=== PATIENT | male | born 1955 | race Caucasian/White ===

== ENCOUNTER 2022-12-24 08:49 | Outpatient (OUT) | payer BC, SELFPAY ==
--- NOTE | 2022-12-24 08:58 | XR_ITS ---
The [address] [address] Patient Name: CARLOS LOCKE MRN: [id number] date: 1955 Sex: M Assigned Patient Location: Current Patient Location: Accession/Order Number: [id number] Exam Date: 12/24/2022 08:57 Report Date: 12/24/2022 12:10 At the request of: TONIO BELL Procedure: XR foot LT min 3V EXAM: XR foot LT min 3V HISTORY: LEFT FOOT PAIN COMPARISON: 12/03/2022. 11/12/2022. TECHNIQUE: 3 views left foot. FINDINGS: Remote ORIF left great toe MTP joint. Also remote resection arthroplasty of the great toe IP joints. There is ill-defined margin and periosteal new bone formation at the distal margin of the proximal phalanx near the resection site. Raises suspicion for infection and appears somewhat progressed compared to priors. Old chronic healed deformity at the base of the third proximal phalanx again seen. Mild to moderate degenerative change of the midfoot. IMPRESSION: Slight increasing irregularity and swelling and periosteal new bone at the first proximal phalanx resection site concerning for osteomyelitis but correlate clinically. Electronically authenticated by: BRIAN MARTINEZ Date: 12/24/2022 12:10
== END 2022-12-24 08:50 ==
LOC: WC 08:49
PROVIDERS: PCP Specialist; Visit Provider Podiatrist Foot & Ankle Surgery
DX: M79.672 Pain in left foot (principal); E11.69 Type 2 diabetes mellitus with other specified complication; E11.65 Type 2 diabetes mellitus with hyperglycemia; E11.21 Type 2 diabetes mellitus with diabetic nephropathy; L84 Corns and callosities; L03.032 Cellulitis of left toe; E78.00 Pure hypercholesterolemia, unspecified; I10 Essential (primary) hypertension
CPT/HCPCS: 73630; 99212; G0463

== ENCOUNTER 2023-01-06 12:14 | Outpatient (OUT) | payer BC, SELFPAY ==
--- NOTE | 2023-01-06 12:56 | P.CN_ITS ---
Consult Note: HPI Data of Consult Patient: known to practice within the last 3 years Consult date: 01/06/23 Requesting Physician: Donaldo Sparrow MD Primary Care Provider: Bekah Berrios MD Consult Narrative Reason for consult: Low back pain Narrative: this is a pleasant 67-year-old gentleman who presents for assessment. He recently underwent paralumbar trigger point injections, which provided relief for several weeks, but his axial low back pain has now returned. He also underwent lumbar x-ray imaging, which is significant for moderate facet arthropathy throughout. He continues tto utilize tramadol. He engages in provider directed home exercises. He denies adverse medications artifactual loss of bowel or bladder control. cc:: CC: Donaldo Sparrow MD Review of Systems ROS0 Status of ROS 10 or more systems reviewed and unremarkable except as noted in history and below Exam Constitutional Common normals: no apparent distress, oriented x3 and healthy appearing Respiratory Common normals: normal respiratory effort Effort & inspection: able to speak in complete sentences Back & Pelvis Other: tenderness to palpation throughout the lumbar spine and paraspinal musculature. Pain is elicited with flexion, extension, and lateral rotation of the lumbar spine. Facet loading maneuvers are positive bilaterally. Coordination is intact. Gait remains nonantalgic. Extremity Common normals: normal to inspection Neuro Common normals: oriented x3, CN's II-XII intact bilaterally and no focal motor deficits Psych Common normals: mental status grossly normal and cooperative Assessment and Plan Assessment and Plan (1) Lumbar spondylosis: Plan this is a pleasant 67-year-old gentleman who presents for assessment. He notes persistence of axial low back pain that is worsened with standing and ambulation. He previously underwent lumbar bilateral L3, L4, L5 radiofrequency ablation in January 2022, which provided significant relief of his pain for over a six-month period of time. We discussed that given his current symptomatology and imaging findings, he would likely benefit from a repeat of his bilateral L3, L4, L5 radicular frequency ablation. He expressed understanding and will call to schedule this when he is ready. Medications were reviewed, and no changes were made at this time. He will follow-up in three months or sooner, if needed.
== END 2023-01-06 12:15 | disposition home or self-care (01) ==
LOC: PM 12:19
PROVIDERS: PCP Specialist; Visit Provider Anesthesiology
DX: M47.816 Spondylosis without myelopathy or radiculopathy, lumbar region (principal); M54.50 Low back pain, unspecified
CPT/HCPCS: G0463

== ENCOUNTER 2023-01-11 13:15 | Emergency (ER) | payer BC, SELFPAY ==
[2023-01-11 13:32] VITALS: BP 134/78; PULSE 82; RESP 16; TEMP 37.3; O2SAT 98; BMI 42.2
--- NOTE | 2023-01-11 13:35 | XR_ITS ---
The [address] [address] Patient Name: CARLOS LOCKE MRN: [id number] date: 1955 Sex: M Assigned Patient Location: ER Current Patient Location: ER Accession/Order Number: [id number] Exam Date: 01/11/2023 14:12 Report Date: 01/11/2023 14:36 At the request of: FRANCISCO CHAVIS Procedure: XR chest 2V EXAM: XR chest 2V HISTORY: cough COMPARISON: None. TECHNIQUE: PA and lateral views of the chest FINDINGS: There is no focal airspace consolidation. There are left basilar mild reticular opacities, suggestive of atelectasis or some scarring. The cardiomediastinal silhouette is not enlarged. There are mild calcific plaques at aortic arch. No evidence of pleural effusion or pneumothorax are identified. No acute osseous abnormality. IMPRESSION: No acute cardiopulmonary process. Recommend follow up imaging if symptoms worsen or persist. Electronically authenticated by: GETACHEW LINDSAY Date: 01/11/2023 14:36
--- NOTE | 2023-01-11 14:54 | ED.URI1 ---
HPI - URI/Sore Throat General Chief Complaint: Upper Respiratory Infection Stated Complaint: COUGH Time Seen by Provider: 01/11/23 14:03 Source: patient Limitations: no limitations History of Present Illness HPI Narrative: cough and congestion for over a week. Took a covid test at home and it was negative. Patient denied fever or chills. No GI or symptoms. Patient tried to get in to see his PCP and was told it would be months before they could schedule him for this. Related Data Home Medications Medication Instructions Recorded Confirmed acetaminophen 500 mg tablet 1,000 mg PO Q6H PRN pain 01/06/23 01/06/23 (Acetaminophen Extra Strength) ascorbic acid (vitamin C) 500 mg 500 mg PO BID 01/06/23 01/06/23 tablet (C-500) atorvastatin 20 mg tablet 20 mg PO DAILY 01/06/23 01/06/23 cholecalciferol (vitamin D3) 25 1,000 unit PO BID 01/06/23 01/06/23 mcg (1,000 unit) tablet (Vitamin D3) colchicine 0.6 mg tablet 0.6 mg PO TID 01/06/23 01/06/23 diclofenac sodium 50 mg 50 mg PO Q12H 01/06/23 01/06/23 tablet,delayed release febuxostat 40 mg tablet 40 mg PO DAILY 01/06/23 01/06/23 gabapentin 300 mg capsule 300 mg PO TID 01/06/23 01/06/23 lisinopril 5 mg tablet 5 mg PO DAILY 01/06/23 01/06/23 metformin 500 mg tablet,extended 500 mg PO DAILY 01/06/23 01/06/23 release 24 hr probenecid 500 mg tablet 500 mg PO BID 01/06/23 01/06/23 semaglutide 1 mg/dose (4 mg/3 mL) 0.5 mg subcut .weekly 01/06/23 01/06/23 subcutaneous pen injector (Ozempic) tizanidine 4 mg tablet 8 mg PO .hs 01/06/23 01/06/23 tramadol 50 mg tablet 50 mg PO Q8H 01/06/23 01/06/23 Previous Rx's Medication Instructions Recorded doxycycline hyclate 100 mg tablet 100 mg PO BID 7 days #14 tabs 01/11/23 Allergies Allergy/AdvReac Type Severity Reaction Status Date / Time oxycodone AdvReac Verified 01/06/23 13:07 Exam Narrative Exam Narrative: Nurses notes and vital signs reviewed and patient is not hypoxic. afebrile General: Well-appearing and in no apparent distress. Skin: Warm, dry, no pallor noted. No rash. Head: Normocephalic, atraumatic. Neck: Supple, non-tender. no lymphadenopathy Eye: Pupils are equal, round and EOMI. No scleral icterus. Ears, Nose, Mouth, and Throat: TM are bilaterally, mild nasal mucosal hypertrophy. Oral mucosa is moist, no posterior oropharynx erythema, uvula is mid-line. maxillary sinus tenderness to palpation. Cardiovascular: Regular Rate and Rhythm without murmur, gallop or rub. Respiratory: No accessory muscle use or respiratory distress. Lungs are clear to auscultation, no wheezing, rales or rhonchi Musculoskeletal: normal ROM Neurological: A&O x4. No cranial nerve dysfunction observed. No truncal ataxia. Moves all extremities. Sensation intact. Psychiatric: Cooperative and interactive. Normal mood and affect. Constitutional Vital Signs - 24 hr 01/11/23 13:32 01/11/23 13:36 Temperature 99.1 F Pulse Rate [Monitor] 82 Respiratory Rate 16 Blood Pressure [Left Arm] 134/78 H Pulse Oximetry 98 Oxygen Delivery Method Room Air Room Air Course Vital Signs Vital signs: Vital Signs Temperature 99.1 F 01/11/23 13:32 Pulse Rate 82 01/11/23 13:32 Respiratory Rate 16 01/11/23 13:32 Blood Pressure 134/78 H 01/11/23 13:32 Pulse Oximetry 98 01/11/23 13:32 Oxygen Delivery Method Room Air 01/11/23 13:32 Temperature 99.1 F 01/11/23 13:32 Pulse Rate 82 01/11/23 13:32 Respiratory Rate 16 01/11/23 13:32 Blood Pressure 134/78 H 01/11/23 13:32 Pulse Oximetry 98 01/11/23 13:32 Oxygen Delivery Method Room Air 01/11/23 13:36 MDM - URI/Sore Throat MDM Narrative Medical decision making narrative: patient has had symptoms for over a week with nasal congestion and pressure indicative of sinusitis and else of upper respiratory infection. Chest x-ray was unremarkable and lungs are clear to auscultation but I'm going to start this patient on antibiotics since he is getting worse despite iuza-ngd-uwxlqoy therapy. He is not able to see his primary care provider is there scheduling several months out. I told him to return the emergency Department if he worsens. Imaging Data Chest x-ray: Radiologist's impression: Patient Name: CARLOS LOCKE MRN: [id number] date: 1955 Sex: M Assigned Patient Location: ER Current Patient Location: ER Accession/Order Number: [id number] Exam Date: 01/11/2023 14:12 Report Date: 01/11/2023 14:36 At the request of: FRANCISCO CHAVIS Procedure: XR chest 2V EXAM: XR chest 2V HISTORY: cough COMPARISON: None. TECHNIQUE: PA and lateral views of the chest FINDINGS: There is no focal airspace consolidation. There are left basilar mild reticular opacities, suggestive of atelectasis or some scarring. The cardiomediastinal silhouette is not enlarged. There are mild calcific plaques at aortic arch. No evidence of pleural effusion or pneumothorax are identified. No acute osseous abnormality. IMPRESSION: No acute cardiopulmonary process. Recommend follow up imaging if symptoms worsen or persist. Electronically authenticated by: GETACHEW LINDSAY Date: 01/11/2023 14:36 Discharge Plan Discharge Chief Complaint: Upper Respiratory Infection Clinical Impression: Upper respiratory infection Patient Disposition: Home, Self-Care Time of Disposition Decision: 14:59 Prescriptions / Home Meds: New doxycycline hyclate 100 mg tablet 100 mg PO BID 7 Days Qty: 14 0RF No Action acetaminophen [Acetaminophen Extra Strength] 500 mg tablet 1,000 mg PO Q6H PRN (Reason: pain) febuxostat 40 mg tablet 40 mg PO DAILY gabapentin 300 mg capsule 300 mg PO TID lisinopril 5 mg tablet 5 mg PO DAILY Ozempic 1 mg/dose (4 mg/3 mL) pen injector 0.5 mg SUBCUT .weekly ascorbic acid (vitamin C) [C-500] 500 mg tablet 500 mg PO BID cholecalciferol (vitamin D3) [Vitamin D3] 25 mcg (1,000 unit) tablet 1,000 unit PO BID atorvastatin 20 mg tablet 20 mg PO DAILY colchicine 0.6 mg tablet 0.6 mg PO TID diclofenac sodium 50 mg tablet,delayed release (DR/EC) 50 mg PO Q12H metformin 500 mg tablet extended release 24 hr 500 mg PO DAILY probenecid 500 mg tablet 500 mg PO BID tizanidine 4 mg tablet 8 mg PO .hs tramadol 50 mg tablet 50 mg PO Q8H Instructions: Sinusitis (ED), Upper Respiratory Infection (ED) Stand Alone Forms: Portal Instructions Referrals: Tulio Madrid MD [Primary Care Provider] - 1 week
== END 2023-01-11 15:11 | disposition home or self-care (01) ==
PROVIDERS: Emergency Provider Emergency Medicine; PCP Family Medicine
DX: J06.9 Acute upper respiratory infection, unspecified (principal); Z79.899 Other long term (current) drug therapy
CPT/HCPCS: 71046; 99283

== ENCOUNTER 2023-02-03 20:45 | Outpatient (OUT) | payer BC, SELFPAY | END 2023-02-03 20:46 | disposition home or self-care (01) | LOC: SLEEP 20:47 | PROVIDERS: PCP Family Medicine; Visit Provider Family Medicine | DX: G47.33 Obstructive sleep apnea (adult) (pediatric) (principal) | CPT/HCPCS: 95811 ==

== ENCOUNTER 2023-03-24 08:20 | Outpatient (OUT) | payer BC, SELFPAY ==
--- NOTE | 2023-03-24 08:23 | XR_ITS ---
[place] [id number] Patient Name: CARLOS LOCKE MRN: [id number] date: 1955 Sex: M Assigned Patient Location: [facility] Current Patient Location: [facility] Accession/Order Number: [id number] Exam Date: 03/24/2023 08:30 Report Date: 03/24/2023 15:28 At the request of: ELIN BAR Procedure: XR knee MARIE 4V STUDY: XR knee MARIE 4V, [id number] HISTORY: Bilateral knee Pain COMPARISON: Bilateral knee x-rays 05/31/2021. FINDINGS: Right knee: No acute fracture, dislocation, or suspicious osseous lesion. Severe joint space narrowing of the medial compartment along with moderate joint space narrowing of the lateral patellofemoral compartment. There is moderate tricompartmental osteophytosis, similar. Small knee joint effusion. Left knee: No acute fracture, dislocation, or suspicious osseous lesion. Severe joint space narrowing of the medial compartment and mild joint space narrowing of the lateral patellofemoral compartment. There is severe osteophytosis of the medial compartment and mild/moderate osteophytosis of the lateral and patellofemoral compartments. Small knee joint effusion. IMPRESSION: 1. No acute osseous abnormality. 2. Severe osteoarthritis of both knees, moderately worse in the left medial compartment compared with 05/31/2021. Electronically authenticated by: JANETH JARRELL Date: 03/24/2023 15:28
== END 2023-03-24 08:21 | disposition home or self-care (01) ==
LOC: RAD 08:20
PROVIDERS: PCP Family Medicine; Visit Provider Orthopaedic Surgery
DX: M25.561 Pain in right knee (principal); M25.562 Pain in left knee; M17.0 Bilateral primary osteoarthritis of knee
CPT/HCPCS: 73564

== ENCOUNTER 2023-04-09 09:14 | Outpatient (OUT) | payer BC, SELFPAY ==
--- NOTE | 2023-04-09 09:53 | P.CN_ITS ---
Consult Note: HPI Data of Consult Patient: known to practice within the last 3 years Requesting Physician: Gracie Chaudhry NP Primary Care Provider: Bekah Berrios MD Consult Narrative Reason for consult: f/u Narrative: Warner Caraballo a pleasant 67 year old male presents for evaluation of chronic low back pain. Today rating pain 4/10 in low back. Pain has been improved, as well as functional ability, for >6 months from previous RFA at bilateral L 3,4,5. Trigger point injections have been beneficial in the past. cc:: CC: Gracie Chaudhry NP Review of Systems ROS Status of ROS 10 or more systems reviewed and unremarkable except as noted in history and below Musculoskeletal Reports: back pain Meds Home Medications and Allergies Home Medications Medication Instructions Recorded Confirmed Type acetaminophen 500 mg tablet 1,000 mg PO Q6H PRN pain 01/06/23 01/06/23 History (Acetaminophen Extra Strength) ascorbic acid (vitamin C) 500 mg 500 mg PO BID 01/06/23 01/06/23 History tablet (C-500) atorvastatin 20 mg tablet 20 mg PO DAILY 01/06/23 01/06/23 History cholecalciferol (vitamin D3) 25 1,000 unit PO BID 01/06/23 01/06/23 History mcg (1,000 unit) tablet (Vitamin D3) colchicine (gout) 0.6 mg tablet 0.6 mg PO TID 01/06/23 01/06/23 History diclofenac sodium 50 mg 50 mg PO Q12H 01/06/23 01/06/23 History tablet,delayed release febuxostat 40 mg tablet 40 mg PO DAILY 01/06/23 01/06/23 History gabapentin 300 mg capsule 300 mg PO TID 01/06/23 01/06/23 History lisinopril 5 mg tablet 5 mg PO DAILY 01/06/23 01/06/23 History metformin 500 mg tablet,extended 500 mg PO DAILY 01/06/23 01/06/23 History release 24 hr probenecid 500 mg tablet 500 mg PO BID 01/06/23 01/06/23 History semaglutide 1 mg/dose (4 mg/3 mL) 0.5 mg subcut .weekly 01/06/23 01/06/23 History subcutaneous pen injector (Ozempic) tizanidine 4 mg tablet 8 mg PO .hs 01/06/23 01/06/23 History tramadol 50 mg tablet 50 mg PO Q8H 01/06/23 01/06/23 History doxycycline hyclate 100 mg tablet 100 mg PO BID 7 days #14 tabs 01/11/23 Rx tramadol 50 mg tablet 50 mg PO TID PRN pain #90 tabs 02/26/23 Rx Allergies Allergy/AdvReac Type Severity Reaction Status Date / Time oxycodone AdvReac Verified 01/06/23 13:07 Exam Constitutional Documenting provider has reviewed patient's vital signs: yes Common normals: no apparent distress, oriented x3, healthy appearing, alert and well nourished General appearance: cooperative HENMT Common normals: normocephalic, hearing grossly normal bilaterally and moist oral mucous membranes Head and scalp: normocephalic Eye Common normals: PERRL Pupil: PERRL Neck & C-Spine Common normals: full ROM General: normal visual inspection Chest Common normals: inspection of chest normal Respiratory Common normals: normal respiratory effort, no retractions and no use of accessory muscles Back & Pelvis Lumbar spine/lower back: ROM limited, pain with ROM, paraspinal muscle tendernes s and straight leg raise negative bilaterally Other: bilateral positive facet loading and tenderness pain at L 3,4,5 facets no radiculopathy Neuro Common normals: oriented x3, CN's II-XII intact bilaterally, moves all extremities, no focal motor deficits, no sensory deficits noted and deep tendon reflexes 2+ bilaterally Sensorium/orientation: alert Motor exam: strength 5/5 throughout and no movement abnormalities noted Psych Common normals: mental status grossly normal, thought process normal, cooperative, affect normal, speech normal and activity/motor behavior normal Speech: normal speech Thought process: normal thought process Results Additional Findings Additional findings: I have checked an [place]AR[place] report on this patient today and there are no aberrancies noted in the prescribing history.?? A drug screen was completed and reviewed within the last year, and if there has not been a drug screen completed we ordered one today to monitor higher risk, state monitored pain medication use. As part of providing excellent, safe, comprehensive care, the following was completed at our patient's visit: 1. A medication reconciliation and review to ensure accurate knowledge of current/active medications, including asking our patients to inform us about any [id number] medications or herbal remedies/nutritional supplements/alternative remedies. 2. A review to specifically ensure our patients have had annual screening for: elevated body mass index (BMI), tobacco use, screening for depression, and screening for unhealthy alcohol use. When screening is concerning, patients are provided with education and the specific recommendation to discuss the conc erning health issue and treatment options with their primary care provider. The patient has had over 3 months of moderate to severe low back pain with functional impairment and inadequate response to conservative care including NSAIDS (unless there are contraindication such as concurrent blood thinners), multiple oral or topical pain medications, and home exercise program/physical therapy.? I have reviewed the imaging of the lumbar spine and no red flags were identified.? The imaging reveals radiographic findings consistent with lumbar spondylosis The Oswestry Disability Index was completed, and the patient scored a 12%.? Assessment and Plan Assessment and Plan (1) Chronic, continuous use of opioids: Assessment and Plan: I have refilled the patient's opioid prescriptions at the above noted dose and schedule.? I feel these medications are improving the patient's quality of life and allow them to tolerate activities of daily living as well as participate in recreational activity.? The patient does not report intolerable side effects. The patient is NOT opioid naive and non-pharmacologic and non-opioid treatment has failed to significantly relieve the patient's pain and improve functionality. The patient has a diagnosis that is related to a somatic or visceral pain etiology. ? ?? I reviewed with the patient the potential risks and side effects with the use of? opioid medications including but not limited to respiratory depression,? sedation, and even . I verified the patient has access to naloxone should? these effects occur. I advised the patient to avoid the use of any other? sedation substances including alcohol, THC, and benzodiazepines while? taking opioid medications due to the risk of compounding side effects and? detrimental outcomes. I reviewed the [employer], pain treatment agreement, urine? drug screen, and opioid start talking forms. The patient was advised to let? their family know they had Naloxone in case they would need to administer? the medication.? (2) Lumbar spondylosis: Assessment and Plan: We discussed the risks and benefits of the procedure with the patient, and we are NOT planning on using sedation as outlined in the guidelines from Medicare unless there is a documented reason that sedation would be strongly recommended.?? The procedure will be completed with fluoroscopic guidance.? (3) Obesity: Assessment and Plan: The patient was counseled that proper dietary changes and consistent participation in a home exercise plan can lead to weight loss. Weight loss can help to improve functionality in patients with chronic pain.? (4) Encounter for medication monitoring: Plan update UDS today discussed repeating bilateral L3,4 ,5 thermal RFAs under fluoroscopy with PO 10mg po valium, patient would like to have this done after he recovers from cataract surgery. Plan for June 2023 continue current medication regimen, tolerating well without side effects tens unit discussed and ordered for low back pain continue HEP f/u 3 months
== END 2023-04-09 09:15 | disposition home or self-care (01) ==
LOC: PM 09:14
PROVIDERS: PCP Specialist; Visit Provider Nurse Practitioner
DX: M47.816 Spondylosis without myelopathy or radiculopathy, lumbar region (principal); Z51.81 Encounter for therapeutic drug level monitoring; Z79.891 Long term (current) use of opiate analgesic
CPT/HCPCS: G0463

== ENCOUNTER 2023-04-12 15:02 | Outpatient (OUT) | payer BC, SELFPAY | END 2023-04-12 15:03 | disposition home or self-care (01) | LOC: LAB 05-01 15:03 | PROVIDERS: PCP Family Medicine | DX: Z23 Encounter for immunization (principal) | CPT/HCPCS: 90662; G0008 ==

== ENCOUNTER 2023-04-17 11:17 | Outpatient (OUT) | payer BC, SELFPAY | END 2023-04-17 11:18 | disposition home or self-care (01) | LOC: PST 11:19 | PROVIDERS: PCP Family Medicine; Visit Provider Ophthalmology | DX: Z01.818 Encounter for other preprocedural examination (principal); H25.12 Age-related nuclear cataract, left eye ==

== ENCOUNTER 2023-04-24 06:08 | Day surgery (SDC) | payer BC, SELFPAY ==
--- NOTE | 2023-04-24 | OP_ITS ---
OPERATION DATE: ??04/24/2023 SURGEON:? Yeison Garcia M.D. PREOPERATIVE DIAGNOSIS:? Nuclear sclerotic cataract left eye. POSTOPERATIVE DIAGNOSIS:? Nuclear sclerotic cataract left eye. PROCEDURE:? Cataract extraction with intraocular lens placement for the left eye. ANESTHESIA:? Topical ESTIMATED BLOOD LOSS:? Zero. COMPLICATIONS:? None. PROCEDURE:? The patient was brought to the Operating Room in supine position.? After proper identification, the left eye was prepped and draped in a sterile ophthalmic fashion.? A paracentesis created at the 5 o'clock position.? Approximately 1 cc of unpreserved Xylocaine was injected into the anterior chamber followed by Amvisc Plus.? Using a 2.4 mm Keratome blade, a clear corneal incision was created at the 3 o'clock limbus.? A cystotome was then used to begin a curvilinear capsulorrhexis that was continued for 360 degrees with the Utrata forceps.? BSS on a 26 gauge cannula was injected beneath the anterior capsule to hydrodissect as well as hydrodelineate the lens.? After ensuring mobility, phacoemulsification was performed in a kyxhwiu-zud-onmzjc-type fashion.? After all nuclear material had been removed from the eye, IA was introduced and all residual cortical material was cleaned up.? Additional Amvisc Plus was injected into the posterior bag and a lens model MX60, 22.0 diopters was injected and dialed into position.? After ensuring centration, IA was reintroduced into the anterior chamber and all residual Amvisc Plus was removed from the eye.? BSS on a 30 gauge cannula was injected into the stroma of both the clear corneal incision as well as paracentesis to hydrate the wounds.? Additional BSS was injected into the anterior chamber to pressurize the eye at approximately 20 to 22 mmHg by finger tension.? 0.1 cc of antibiotic was injected into the anterior chamber.? Weck-Priscila sponges were used to check the wounds to be watertight.? One drop of apraclonidine and one drop of prednisolone acetate placed into the eye and a shield was placed over top. The patient was sent to the postoperative area in satisfactory condition to follow up the following day for postoperative care. ALEX
[2023-04-24] MEDS: DIAZEPAM 5 MG TABLET 10 MG PO (06:29)
[2023-04-24] MEDS: CYCLOPENTOLATE HCL 1% OP SOL 40 DROP/2 ML BOTTLE EYE-LEFT ×4 (06:34→07:00)
[2023-04-24] MEDS: TROPICAMIDE 1% OP SOL 300 DROP/15 ML BOTTLE EYE-LEFT ×4 (06:34→07:01)
[2023-04-24] MEDS: PHENYLEPHRINE HCL 2.5% OP SOL 40 DROP/2 ML BOTTLE EYE-LEFT ×4 (06:35→07:01)
[2023-04-24] MEDS: BESIFLOXACIN HCL 100 DROP DROPS.SUSP OP ×4 (06:36→07:04)
[2023-04-24] MEDS: PROPARACAINE HCL 0.5% 300 DROP/15 ML BOTTLE OP (07:35)
[2023-04-24] MEDS: LIDOCAINE 2% JELLY 10 ML UR (07:35)
[2023-04-24] MEDS: BETADINE POVIDONE-IODINE 5% OP SOL 30 ML BOTTLE OP (07:35)
[2023-04-24 07:47] VITALS: BP 120/73; PULSE 63; RESP 18; O2SAT 100
[2023-04-24] MEDS: HYALURONATE SODIUM 16 MG/ML SYRINGE EYE-LEFT (07:48)
[2023-04-24] MEDS: TETRACAINE HCL 0.5% OP SOL 80 DROP/4 ML BOTTLE OP (07:48)
[2023-04-24] MEDS: LIDOCAINE HCL 1% PF 20 MG/2 ML VIAL 1 ML INJ (07:48)
[2023-04-24] MEDS: PHENYLEPHRINE/KETOROLAC 1-0.3% ML VIAL 4 ML IRR ×2 (07:50)
[2023-04-24] MEDS: CEFUROXIME SODIUM 750 MG, 0.9 % SODIUM CHLORIDE 16.3 ML OP (07:57)
[2023-04-24 08:01] VITALS: BP 129/76; PULSE 71; RESP 16; O2SAT 100
[2023-04-24] MEDS: APRACLONIDINE HCL 100 DROP/5 ML BOTTLE OP (08:02)
--- NOTE | 2023-04-24 08:25 | HP_ITS ---
PREOPERATIVE HISTORY AND PHYSICAL ? Date:? 04/23/2023 ? HISTORY:? The patient is a 67-year-old white male with complaints of declining vision from his left eye.? He states this has been a gradual, progressive vision decline.? He states having difficulty with bright lights and glare at night time from headlights and street lamps.? He states seeing road signs at a distance are very difficult and the television scroll at the bottom of the screen has become more difficult.? ? PAST OCULAR HISTORY:? Denies. ? PAST MEDICAL HISTORY: 1.? Chronic kidney disease. 2.? Deep vein thrombosis in July 2020. 3.? Gout 4.? Hypercholesterolemia. 6.? History of a PE in July of 2020. 7.? Type 2 diabetes. ? SOCIAL HISTORY:? Denies tobacco, alcohol or recreational drug abuse.? ? SYSTEMIC MEDICATIONS:? Allopurinol, atorvastatin, baclofen, diclofenac, metformin, colchicine, probenecid, gabapentin and tramadol. ? ALLERGIES:? To oxycodone. ? REVIEW OF SYSTEMS:? No pertinent positives. ? PHYSICAL EXAM:? GENERAL:? He is awake, alert and oriented x3, well developed, well nourished, in no acute distress.? ? HEART:? Regular rate and rhythm. ? LUNGS:? Clear bilaterally. ? ABDOMEN:? Soft, non-tender, non-distended. ? EXTREMITIES:? No pitting edema. ? OPHTHALMIC EXAM:? Revealed a visual acuity of 20/30 -1 in both eyes that glared to 20/200 bilaterally.? Pupils motility, muscle balance, confrontational visual rivera within normal limits bilaterally.? Pressures were measured at 16 bilaterally.? Slit lamp exam revealed blepharitis with a severe decrease in tear film bilaterally.? Conjunctiva, cornea, anterior chamber and iris were within normal limits bilaterally.? Lens status demonstrated 2+ nuclear sclerosis with vacuoles bilaterally.? ? FUNDUS EXAM:? Revealed a good view with good dilation bilaterally.? Optic discs, macula, vessels, periphery and vitreous were within normal limits bilaterally. ? ASSESSMENT AND PLAN:? Visually significant cataract, left eye.? After risks, benefits, alternatives, as well as expectations were delivered to the patient, he elected to go forward with cataract removal.? He understands the risks include but not limited to infection, bleeding, loss of vision, loss of the eye itself.? Secondly, he understands postoperatively he is likely to require spectacle correction for best visual acuity.? Finally, a complete ophthalmic exam was performed, there is not determined to be any other source of visual decline other than that of the cataract.? ? After understanding all the risks as well as expectations, he elected to go forward with procedure as listed above and will be doing so in the near future. ALEX
== END 2023-04-24 08:25 | disposition home or self-care (01) ==
PROVIDERS: PCP Family Medicine; Visit Provider Ophthalmology
PROC: (CPT 66984; principal; 2023-04-24 07:30)
DX: H25.12 Age-related nuclear cataract, left eye (principal); E11.22 Type 2 diabetes mellitus with diabetic chronic kidney disease; N18.9 Chronic kidney disease, unspecified; Z86.718 Personal history of other venous thrombosis and embolism; E78.00 Pure hypercholesterolemia, unspecified; Z86.711 Personal history of pulmonary embolism; M10.9 Gout, unspecified; Z79.899 Other long term (current) drug therapy; Z79.84 Long term (current) use of oral hypoglycemic drugs
CPT/HCPCS: 66984; V2630

== ENCOUNTER 2023-05-14 11:21 | Outpatient (OUT) | payer BC, SELFPAY | END 2023-05-14 11:22 | disposition home or self-care (01) | LOC: PST 11:21 | PROVIDERS: PCP Family Medicine; Visit Provider Ophthalmology | DX: Z01.818 Encounter for other preprocedural examination (principal); H25.811 Combined forms of age-related cataract, right eye ==

== ENCOUNTER 2023-05-15 06:07 | Day surgery (SDC) | payer BC, SELFPAY ==
--- NOTE | 2023-05-14 | HP_ITS ---
PREOPERATIVE HISTORY AND PHYSICAL Date:? 05/14/2023 HISTORY:? The patient is a 67-year-old white male with complaints of declining vision out of his right eye. ?The onset of this has been gradual, occurring over the last 1-2 years.? It has been constant in nature.? He describes it most notably at night time, while driving, with headlights creating glare and halos.? He also states having difficulty with seeing near vision.? PAST OCULAR HISTORY / PAST MEDICAL HISTORY / SOCIAL HISTORY / MEDICATIONS / ALLERGIES TO MEDICATIONS / REVIEW OF SYSTEMS / PHYSICAL EXAM:? Unchanged from previously dictated. ASSESSMENT / PLAN: Visually significant cataract right eye.? After risks, benefits, alternatives, as well as expectations were delivered to the patient, he elected to go forward with cataract removal.? He understands the risks include but not limited to infection, bleeding, loss of vision, loss of the eye itself.? Secondly, he understands that postoperatively he is likely required to require spectacle correction for his best visual acuity.? Finally, a complete ophthalmic exam was performed and there is not determined to be any other source of visual decline other than that of the cataract. After understanding all the risks as well as expectations, he elected to go forward with the procedure as listed above and will be doing so in the near future. ALEX
--- NOTE | 2023-05-15 | OP_ITS ---
OPERATION DATE: ??05/15/2023 SURGEON:? Yeison Garcia M.D. PREOPERATIVE DIAGNOSIS:? Nuclear sclerotic cataract right eye. POSTOPERATIVE DIAGNOSIS:? Nuclear sclerotic cataract right eye. PROCEDURE NAME:? Cataract extraction with intraocular lens placement for the right eye. ANESTHESIA:? Topical. ESTIMATED BLOOD LOSS:? Zero. COMPLICATIONS:? None. PROCEDURE:? The patient was brought to the operating room in supine position.? After proper identification, the right eye was prepped and draped in a sterile ophthalmic fashion.? A paracentesis was created at the 11 o'clock position.? Approximately 1 mL of unpreserved Xylocaine was injected into the anterior chamber followed by Amvisc Plus.? Using a 2.6 mm Keratome blade, a clear corneal incision was created at the 8 o'clock limbus.? A cystotome was then used to begin a curvilinear capsulorrhexis that was continued for 360 degrees with the Utrata forceps.? BSS on a 26 gauge cannula was injected beneath the anterior capsule to hydrodissect as well as hydrodelineate the lens.? After ensuring mobility, phacoemulsification was performed in a [id number]-type fashion.? After all nuclear material had been removed from the eye, IA was introduced and all residual cortical material was cleaned up.? Additional Amvisc Plus was injected into the posterior bag and a lens model MX60, 20.5 diopters was then injected and dialed into position.? After ensuring centration, IA was reintroduced into the anterior chamber and all residual Amvisc Plus was removed from the eye.?? BSS on a 30 gauge cannula was injected into the stroma of both the clear corneal incision as well as the paracentesis to hydrate the wounds.? Additional BSS was injected into the anterior chamber to pressurize the eye at approximately 20 to 22 mmHg by finger tension.? 0.1 mL of antibiotic was injected into the anterior chamber.? Weck-Priscila sponges were used to check the wounds to be watertight.? One drop of Apraclonidine and one drop of prednisolone acetate were placed into the eye and a shield was placed over top. The patient was then sent to the postoperative area in satisfactory condition to follow up the following day for postoperative care. ALEX
[2023-05-15] MEDS: DIAZEPAM 5 MG TABLET 10 MG PO (06:30)
[2023-05-15] MEDS: TROPICAMIDE 1% OP SOL 300 DROP/15 ML BOTTLE OP ×4 (06:32→07:05)
[2023-05-15] MEDS: PHENYLEPHRINE HCL 2.5% OP SOL 40 DROP/2 ML BOTTLE OP ×4 (06:32→07:04)
[2023-05-15] MEDS: CYCLOPENTOLATE HCL 1% OP SOL 40 DROP/2 ML BOTTLE OP ×4 (06:32→07:04)
[2023-05-15] MEDS: BESIFLOXACIN HCL 100 DROP DROPS.SUSP OP ×4 (06:33→07:03)
[2023-05-15 07:09] VITALS: BP 132/72; PULSE 72; RESP 18; TEMP 36.7; O2SAT 97
[2023-05-15 07:39] VITALS: BP 135/79; PULSE 66; RESP 16; O2SAT 99
[2023-05-15] MEDS: BETADINE POVIDONE-IODINE 5% OP SOL 30 ML BOTTLE OP (07:40)
[2023-05-15] MEDS: LIDOCAINE HCL 1% PF 20 MG/2 ML VIAL 1 ML INJ (07:40)
[2023-05-15] MEDS: PREDNISOLONE ACETATE OP 1% SUSP 100 DROPS/5 ML 1 DROP OP (07:40)
[2023-05-15] MEDS: PHENYLEPHRINE/KETOROLAC 1-0.3% ML VIAL 4 ML IRR (07:40)
[2023-05-15] MEDS: APRACLONIDINE HCL 100 DROP/5 ML BOTTLE OP (07:40)
[2023-05-15] MEDS: TETRACAINE HCL 0.5% OP SOL 80 DROP/4 ML BOTTLE OP (07:40)
[2023-05-15] MEDS: LIDOCAINE 2% JELLY 10 ML UR (07:40)
[2023-05-15] MEDS: HYALURONATE SODIUM 16 MG/ML SYRINGE EYE-RIGHT (07:40)
[2023-05-15] MEDS: PROPARACAINE HCL 0.5% 300 DROP/15 ML BOTTLE OP (07:40)
[2023-05-15] MEDS: CEFUROXIME SODIUM 750 MG, 0.9 % SODIUM CHLORIDE 16.3 ML OP (07:40)
[2023-05-15 07:49] VITALS: BP 138/76; PULSE 65; RESP 18; O2SAT 97
== END 2023-05-15 08:10 | disposition home or self-care (01) ==
PROVIDERS: PCP Family Medicine; Visit Provider Ophthalmology
PROC: (CPT 66984; principal; 2023-05-15 07:30)
DX: H25.811 Combined forms of age-related cataract, right eye (principal)
CPT/HCPCS: 66984; V2630

== ENCOUNTER 2023-05-27 09:07 | Outpatient (OUT) | payer BC, SELFPAY ==
--- NOTE | 2023-05-27 09:32 | XR_ITS ---
The [address] [address] Patient Name: CARLOS LOCKE MRN: [id number] date: 1955 Sex: M Assigned Patient Location: LAB Current Patient Location: LAB Accession/Order Number: [id number] Exam Date: 05/27/2023 09:40 Report Date: 05/27/2023 10:58 At the request of: ABIODUN HERNANDEZ Procedure: XR abdomen 1V EXAM: XR abdomen 1V HISTORY: BPH With Urinary Obstruction , Kidney Calculi N20.0 COMPARISON: None. TECHNIQUE: AP view of the abdomen. FINDINGS: Nonobstructive bowel gas pattern is noted. There are multiple right renal calculi, largest measuring up to 8 mm. The osseous structures are intact. XR/XR abdomen 1V IMPRESSION: Nonobstructive bowel gas pattern. Right nephrolithiasis. Electronically authenticated by: CALVIN CRUZ Date: 05/27/2023 10:58
[2023-05-27 10:06] LABS: Prostate Specific Antigen Dx 1.46 ng/mL (<=4.00)
== END 2023-05-27 09:08 | disposition home or self-care (01) ==
LOC: LAB 09:13
PROVIDERS: PCP Family Medicine; Visit Provider Physician Assistant
DX: N40.1 Benign prostatic hyperplasia with lower urinary tract symptoms (principal); N20.0 Calculus of kidney; Z12.5 Encounter for screening for malignant neoplasm of prostate
CPT/HCPCS: 36415; 74018; 84153

== ENCOUNTER 2023-06-30 08:47 | Day surgery (SDC) | payer BC, MEDICARE, SELFPAY ==
[2023-06-30 09:35] VITALS: BP 174/90; RESP 16; TEMP 36.4; O2SAT 100
[2023-06-30 09:40] LABS: Glucometer 112 mg/dL (74-106)
[2023-06-30 10:17] VITALS: BP 135/62; PULSE 84; RESP 18; O2SAT 96
[2023-06-30 10:26] VITALS: BP 110/56; PULSE 72; RESP 18; O2SAT 94
[2023-06-30] MEDS: LIDOCAINE HCL 2% 400 MG/20 ML MDV 16 ML INJ (10:30)
[2023-06-30] MEDS: BUPIVACAINE HCL 0.25% PF 25 MG/10 ML VIAL 4 ML INJ (10:30)
--- NOTE | 2023-06-30 10:30 | P.ON_ITS ---
Date of procedure: 06/30/23 Pre-op diagnosis: Lumbar spondylosis Post-op diagnosis: same as pre-op Procedure: Procedure: Bilateral L4-5, L5-S1 (L3, 4, 5) radiofrequency ablation Medications: Bupivacaine 0.25% 6cc, lidocaine 2% 5cc, kenalog 80mg The patient was seen and examined in the preoperative holding area.? The site was marked.? Written informed consent was obtained and placed on the chart.? The patient was brought to the medical procedure unit and placed in the prone po sition.? A timeout was completed verifying correct patient, procedure, positioning, and special requirements.? The skin overlying the target points, the designated medial branch, were prepped and draped in the usual sterile fashion.? The target point was achieved with a 20-gauge 15 cm with a 10 mm curved active tip radiofrequency cannula under direct fluoroscopic visualization.? The needle was inserted at level L4 on the right side. Needle tip position was confirmed with lateral fluoroscopic position.? Motor stimulation was carried out at 2 Hz up to 5 volts with the absence of extremity activity.? This was repeated at level L5, S1 on right side.?? Sensory stimulation was carried out.? Concordant pain was realized at the above- mentioned sites.? Then radiofrequency lesioning was carried out times 90 seconds at 80 degrees times 2 lesions at each level.? The radiofrequency probe was removed prior to cannula removal.? The above-mentioned injectate was placed in 1 mL increments.? The needle was removed. The same procedure, with the same steps, was then completed on the left side at the same levels. Insertion sites were covered.? The patient was taken to the postoperative recovery area and monitored for an appropriate length of time before being found suitable for discharge in the company of a responsible adult. Anesthesia: Local Surgeon: Donaldo Sparrow Pathology: none sent Condition: stable Disposition: no change
[2023-06-30] MEDS: TRIAMCINOLONE ACETONIDE 40 MG/ML VIAL 80 MG INJ (10:31)
== END 2023-06-30 10:37 | disposition home or self-care (01) ==
PROVIDERS: PCP Family Medicine; Visit Provider Anesthesiology
DX: M47.816 Spondylosis without myelopathy or radiculopathy, lumbar region (principal); Z79.84 Long term (current) use of oral hypoglycemic drugs
CPT/HCPCS: 36415; 64635; 64636; 82948

== ENCOUNTER 2023-07-02 08:32 | Outpatient (OUT) | payer BC, MEDICARE, SELFPAY ==
--- OUTSIDE RECORDS SUMMARY | 2023-07-02 08:39 | XMS_ITS | CCD ---
Author Name Unknown Address [address] [place] [address] [facility] Care Team Providers Care Founder / Ceo Name Role Phone Frances Racheal Unavailable Alejandra Cain Unavailable BENTLEY MACK Attending Unavailable ELY, DR RACHEAL Ayala Admitting Unavailable WEST, DR RACHEAL Ayala Consulting Unavailable WEST, DR RACHEAL Ayala Attending Unavailable BERRIOS ., DR FELISA Juarez Primary Care Unavailable BIB, DR ELIN Oliva Consulting Unavailable BERRIOS ., DR FELISA Juarez Primary Care Unavailable BERRIOS ., DR FELISA Juarez Attending Unavailable BERRIOS ., DR FELISA Juarez Consulting Unavailable BERRIOS ., DR FELISA Juarez Admitting Unavailable ELTAHAWLiza, DR SALCIDO Consulting Unavailable BERRIOS ., DR FELISA Juarez Primary Care Unavailable ELTAJASMYNE, DR SALCIDO Attending Unavailable ELTAJASMYNE, DR SALCIDO Admitting Unavailable BERRIOS ., DR FELISA Juarez Primary Care Unavailable BERRIOS ., DR FELISA Juarez Attending Unavailable BERRIOS ., DR FELISA Juarez Consulting Unavailable BERRIOS ., DR FELISA Juarez Admitting Unavailable BERRIOS ., DR FELISA Juarez Attending Unavailable BERRIOS ., DR FELISA Juarez Consulting Unavailable BERRIOS ., DR FELISA Juarez Primary Care Unavailable BERRIOS ., DR FELISA Juarez Admitting Unavailable BIB, DR ELIN Oliva Consulting Unavailable ELY, DR RACHEAL Ayala Admitting Unavailable WEST, DR RACHEAL Ayala Consulting Unavailable BERRIOS ., DR FELISA Juarez Primary Care Unavailable ELY, DR RACHEAL Ayala Attending Unavailable BERRIOS ., DR FELISA Juarez Primary Care Unavailable TONIO BELL Admitting Unavailable TONIO BELL Attending Unavailable BERRIOS ., DR FELISA Juarez Primary Care Unavailable BOONE ., DR NATHALY Main Consulting Unavailable BOONE ., DR NATHALY Main Attending Unavailable BOONE ., DR NATHALY Main Admitting Unavailable JAZMIN MCGREGOR Consulting Unavailable BOONE ., DR NATHALY Main Consulting Unavailable BOONE ., DR NATHALY Main Admitting Unavailable BERRIOS ., DR FELISA Juarez Primary Care Unavailable BOONE ., DR NATHALY Main Attending Unavailable JOHNSON ., RODRIGO Consulting Unavailable JOHNSON ., RODRIGO Consulting Unavailable BOONE ., DR NATHALY Main Attending Unavailable BOONE ., DR NATHALY Main Admitting Unavailable BERRIOS ., DR FELISA Juarez Primary Care Unavailable BOONE ., DR NATHALY Main Attending Unavailable JOHNSON ., RODRIGO Consulting Unavailable BERRIOS ., DR FELISA Juarez Primary Care Unavailable BOONE ., DR NATHALY Main Admitting Unavailable LAKSHMIPATHY ., NARENDRANATH Admitting Melodie vailable BERRIOS ., DR FELISA Juarez Primary Care Unavailable LAKSHMIPATHY ., NARENDRANATH Attending Melodie vailable GIEDRAITIS, ANDRIUS Consulting Unavailable HALKER ., NASIM Consulting Unavailable JOHNSON ., RODRIGO Consulting Unavailable BOONE ., DR NATHALY Main Admitting Unavailable BERRIOS ., DR FELISA Juarez Primary Care Unavailable BOONE ., DR NATHALY Main Attending Unavailable BERRIOS ., DR FELISA Juarez Primary Care Unavailable BOONE ., DR NATHALY Main Consulting Unavailable BOONE ., DR NATHALY Main Attending Unavailable BOONE ., DR NATHALY Main Admitting Unavailable MAHARAJ, THEE Consulting Unavailable BOONE ., DR NATHALY Main Admitting Unavailable BOONE ., DR NATHALY Main Attending Unavailable BERRIOS ., DR FELISA Juarez Primary Care Unavailable BERRIOS ., DR FELISA Juarez Attending Unavailable BERRIOS ., DR FELISA Juarez Consulting Unavailable BERRIOS ., DR FELISA Juarez Primary Care Unavailable BERRIOS ., DR FELISA Juarez Admitting Unavailable BERRIOS ., DR FELISA Juarez Primary Care Unavailable WEST, DR RACHEAL Ayala Consulting Unavailable GIEDRAITIS, ANDRIUS Attending Unavailable GIEDRAITIS, ANDRIUS Admitting Unavailable GIEDRAITIS, ANDRIUS Consulting Unavailable BERRIOS ., DR FELISA Juarez Primary Care Unavailable WEST, DR RACHEAL Ayala Consulting Unavailable WEST, DR RACHEAL Ayala Attending Unavailable WEST, DR RACHEAL Ayala Admjulio césar Unavailable ZIEBER, DR ELIN Oliva Consulting Unavailable BERRIOS ., DR FELISA Juarez Primary Care Unavailable WEST, DR RACHEAL Ayala Consulting Unavailable WEST, DR RACHEAL Ayala Attending Unavailable WEST, DR RACHEAL Ayala Admitting Unavailable WEST, DR RACHEAL Ayala Consulting Unavailable WEST, DR RACHEAL Ayala Admjulio césar Unavailable BERRIOS ., DR FELISA Juarez Primary Care Unavailable WEST, DR RACHEAL Ayala Attending Unavailable BERRIOS ., DR FELISA Juarez Primary Care Unavailable WEST, DR RACHEAL Ayala Admitting Unavailable WEST, DR RACHEAL Ayala Consulting Unavailable WEST, DR RACHEAL Ayala Attending Unavailable ZIEBER, DR ELIN Oliva Consulting Unavailable BERRIOS ., DR FELISA Juarez Primary Care Unavailable HIGHLANDER, PETER D Admitting Unavailable HIGHLANDER, PETER D Attending Unavailable HIGHLANDER, PETER D Attending Unavailable HIGHLANDER, PETER D Admitting Unavailable BERRIOS ., DR FELISA Juarez Primary Care Unavailable BERRIOS ., DR FELISA Juarez Primary Care Unavailable HIGHLANDER, PETER D Admitting Unavailable HIGHLANDER, PETER D Attending Unavailable ZIEBER, DR ELIN Oliva Consulting Unavailable HIGHLANDER, PETER D Consulting Unavailable BERRIOS ., DR FELISA Juarez Primary Care Unavailable HIGHLANDER, PETER D Consulting Unavailable HIGHLANDER, PETER D Admitting Unavailable HIGHLANDER, PETER D Attending Unavailable ZAFAR FERRER Consulting Unavailable BERRIOS ., DR FELISA Juarez Primary Care Unavailable HIGHLANDER, PETER D Attending Unavailable HIGHLANDER, PETER D Admitting Unavailable BERRIOS ., DR FELISA Juarez Primary Care Unavailable HIGHLANDER, PETER D Attending Unavailable HIGHLANDER, PETER D Admitting Unavailable BERRIOS ., DR FELISA Juarez Primary Care Unavailable HIGHLANDER, PETER D Attending Unavailable HIGHLANDER, PETER D Admitting Unavailable HIGHLANDER, PETER D Attending Unavailable HIGHLANDER, PETER D Admitting Unavailable BERRIOS ., DR FELISA Juarez Primary Care Unavailable ZIEBER, DR ELIN Oliva Consulting Unavailable HIGHLANDER, PETER D Consulting Unavailable BERRIOS ., DR FELISA Juarez Primary Care Unavailable HIGHLANDER, PETER D Admitting Unavailable HIGHLANDER, PETER D Attending Unavailable ZIEBER, DR ELIN Oliva Consulting Unavailable HIGHLANDER, PETER D Consulting Unavailable NELIDA ., CECY BLACKMON Consulting Unavailable JENNIFER II, ALEJANDRA Consulting Unavailable TYLERYURI Consulting Unavailable TONIO GONZALEZ Consulting Unavailable BERRIOS ., DR FELISA Juarez Primary Care Unavailable PAY ., DR MARTINEZ Consulting Unavailable PAY ., DR MARTINEZ Attending Unavailable PAY ., DR MARTINEZ Admitting Unavailable BERRIOS ., DR FELISA Juarez Primary Care Unavailable HIGHLANDER, PETER D Admitting Unavailable HIGHLANDER, PETER D Attending Unavailable BERRIOS ., DR FELISA Juarez Primary Care Unavailable HIGHLANDER, PETER D Consulting Unavailable HIGHLANDER, PETER D Admitting Unavailable HIGHLANDER, PETER D Attending Unavailable EMILE DAVIDSON Consulting Unavailable BERRIOS ., DR FELISA Juarez Attending Unavailable BERRIOS ., DR FELISA Juarez Primary Care Unavailable BERRIOS ., DR FELISA Juarez Admitting Unavailable BERRIOS ., DR FELISA Juarez Primary Care Unavailable BERRIOS ., DR FELISA Juarez Attending Unavailable BERRIOS ., DR FELISA Juarez Consulting Unavailable BERRIOS ., DR FELISA Juarez Admitting Unavailable BERRIOS ., DR FELISA Juarez Primary Care Unavailable BOONE ., DR NATHALY Main Consulting Unavailable BOONE ., DR NATHALY Main Attending Unavailable BOONE ., DR NATHALY Main Admitting Unavailable ALEX .RODRIGO Unavailable WEST, DR RACHEAL Ayala Consulting Unavailable RUBEN ., DR FELISA Juarez Primary Care Unavailable [facility], DR STEWART Attending Unavailable [facility], DR STEWART Admitting Unavailable [facility], DR STEWART Consulting Unavailable WEST, DR RACHEAL Ayala Admitting Unavailable WEST, DR RACHEAL Ayala Consulting Unavailable WEST, DR RACHEAL Ayala Attending Unavailable RUBEN ., DR FELISA Juarez Primary Care Unavailable BIB, DR ELIN Oliva Consulting Unavailable RBUEN ., DR FELISA Juarez Primary Care Unavailable WEST, DR RACHEAL Ayala Admitting Unavailable WEST, DR RACHEAL Ayala Consulting Unavailable WEST, DR RACHEAL Ayala Attending Unavailable KATINAEBRONAK, DR ELIN Oliva Consulting Unavailable WEST, DR RACHEAL Ayala Admitting Unavailable WEST, DR RACHEAL Ayala Consulting Unavailable RUBEN ., DR FELISA Juarez Primary Care Unavailable WEST, DR RACHEAL Ayala Attending Unavailable FELISA BERRIOS Primary Care Physician Kyara MCGUIRE, Donaldo Cunningham Attending Unavailable Kyara MCGUIRE, Donaldo Cunningham Attending Unavailable MARZENA HERNANDEZ Attending Unavailab MARZENA Cerna Attending Unavailab FELISA Ruiz Attending Unavailable FELISA BERRIOS Attending Unavailable Allergies Allergy Classification Reported Allergen(s) Allergy Type Date of Onset Reaction(s) Facility (3 sources) Acetaminophen / oxyCODONE Drug Allergy Unknown [facility] Other (1 source) Acetaminophen / oxyCODONE; Translations: [OXYCODONE-ACETAM INOPHEN] Drug Allergy 3 [facility] Repository (3 sources) oxyCODONE; Translations: [OXYCODONE] Drug Allergy 3 Hyperactive behavior (finding) [facility] Repository (1 source) Acetaminophen / oxyCODONE Drug Allergy [facility] Repository (1 source) oxyCODONE; Translations: [OxyCODONE Hydrochloride] Drug Allergy [facility] Repository Medications Current Medications Medication Drug Class(es) Dates Sig (Normalized) Sig (Original) atorvastatin 20 mg oral tablet (4 sources) HMG-CoA Reductase Inhibitor Start: 04-25-2020 take 1 tablet by mouth once daily atorvastatin 20 mg Tab 20 mg = 1 tab(s), Oral, Daily, Refills(s) 0, High cholesterol Start Date: 04/25/20 Status: Ordered Atorvastatin Rafael cium Active baclofen 10 mg oral tablet (4 sources) gamma-Aminobutyric Acid-ergic Agonist Start: 11-17-2020 take 1 tablet by mouth at bedtime baclofen 10 mg Tab 10 mg = 1 tab(s), Oral, Bedtime, Refills(s) 0, Muscle pain Start Date: 11/17/20 Status: Ordered Baclofen Active colchicine 0.6 mg oral tablet (4 sources) Start: 11-15-2020 take 1 tablet by mouth three times daily as needed for pain and pain, then take 1 tablet by mouth three times daily as needed for pain and pain colchicine 0.6 mg Tab 0.6 mg = 1 tab(s), Oral, TID, PRN for gout pain, 1 po tid prn for gout pain, # 10 tab(s), Refills(s) 0 Start Date: 11/15/20 Status: Ordered Colchicine Activ e diclofenac sodium 50 mg delayed release oral tablet (2 sources) Nonsteroidal Anti-inflammatory Drug take 1 tablet by mouth every twelve hours Diclofenac Sodium 50 MG 1 tablet as needed Orally Twice a day Active febuxostat 40 mg oral tablet (4 sources) Xanthine Oxidase Inhibitor Start: 04-25-20 take 1 tablet by mouth once daily febuxostat 40 mg oral tablet 40 mg = 1 tab(s), Oral, Daily, # 30 tab(s), Refills(s) 0, Gout pain Start Date: 04/25/20 Status: Ordered Febuxostat Activ e gabapentin 300 mg oral capsule (4 sources) Anti-epileptic Agent Start: 11-15-2020 take 1 capsule by mouth once daily at bedtime gabapentin 300 mg Cap 300 mg = 1 cap(s), Oral, Once a day (at bedtime), # 30 cap(s), Refills(s) 0, Muscle pain Start Date: 11/15/20 Status: Ordered Gabapentin Activ e lisinopril 5 mg oral tablet (4 sources) Angiotensin Converting Enzyme Inhibitor Start: 04-13-2019 take 5 mg by mouth once daily lisinopril 5 mg, Oral, Daily, Refills(s) 0, High blood pressure Start Date: 04/13/19 Status: Ordered Lisinopril Activ e metFORMIN hydrochloride 500 mg oral tablet (4 sources) Biguanide Start: 04-25-2020 take 1 tablet by mouth once daily metformin 500 mg ER Tab 500 mg = 1 tab(s), Oral, Daily, Refills(s) 0, High blood sugar Start Date: 04/25/20 Status: Ordered metFORMIN HCl Ac tive nabumetone 500 mg oral tablet (1 source) Nonsteroidal Anti-inflammatory Drug Start: 11-17-2020 take 1 tablet by mouth twice daily nabumetone 500 mg Tab 500 mg = 1 tab(s), Oral, BID, Refills(s) 0, Arthritis Start Date: 11/17/20 Status: Ordered Ozempic (3 sources) Ozempic Active probenecid 500 mg oral tablet (2 sources) take 1 tablet by mouth every twelve hours Probenecid 500 MG 1 tablet Orally Twice a day Active 0.25 mg, 0.5 mg dose 1.5 ml semaglutide 1.34 mg/ml pen injector (1 source) Start: 04-24-2021 inject 0.5 mg by subcutaneous injection every week Ozempic 2 mg/1.5 mL (0.25 mg or 0.5 mg dose) subcutaneous solution 0.5 mg, SubCutaneous, qWeek, Refill(s) 0 Start Date: 04/24/21 Status: Ordered tadalafil 10 mg oral tablet (1 source) Phosphodiesterase 5 Inhibitor Start: 06-03-2023 tadalafil 10 mg Tab See Instructions, PRN for erectile dysfunction, 1-2 tab(s) po 60mins prior to sexual activity. do not exceed 20mg/24hrs, # 20 tab(s), Refills(s) 3, Pharmacy: [facility]/pharmacy #[id number], 188, cm, 06/03/23 10:01:00 EST, Height/Length Dosing, 138, kg, 06/03/23 10:01:00 EST, Weight Dosing Start Date: 06/03/23 Status: Ordered Testosterone Cypionate 200 mg/mL intramuscular solution (1 source) Start: 06-03-2023 Testosterone Cypionate 200 mg/mL intramuscular solution Refills(s) 0 Start Date: 06/03/23 Status: Ordered traMADol hydrochloride 50 mg oral tablet (4 sources) Opioid Agonist Start: 06-03-2023 traMADOL 50 mg Tab Refills(s) 0 Start Date: 06/03/23 Status: Ordered traMADol HCl Act vitor Vitamin D3 (1 source) Start: 04-25-2020 Vitamin D3 50, 000 International_Unit, BID, Refills(s) 0, Prophylaxis Start Date: 04/25/20 Status: Ordered Completed/Discontinued Medications Medication Drug Class(es) Dates Sig (Normalized) Sig (Original) LORazepam 0.5 mg oral tablet (1 source) Benzodiazepine Start: 12-06-2020 Ativan 0.5 mg Tab 1 mg = 2 tab(s), Oral, Once a day (at bedtime), take one tab 30 minutes prior to leaving house for biopsy. Take second one 30 minutes prior to scheduled time of biopsy if needed, # 2 tab(s), Refills(s) 0, Pharmacy: [facility]/pharmacy #[id number], 185.4, cm, 12/05/20 11:15:00 EDT, Height/Length Dosing, 153.8, kg, 12/05/20 11:15:00 EDT, Weight Dosing Start Date: 12/06/20 Status: Ordered triamcinolone acetonide 40 mg/ml injectable suspension (4 sources) Corticosteroid Start: 05-23-2022 Kenalog-40 May, 40 mg Start: 08-07-2021 Kenalog -40 mg Jul, 40 mg Problems Active Problems Problem Classification Problem Date Documented Date Episodic/Chronic Acquired foot deformities (5 sources) Hallux rigidus, left foot; Translations: [Hallux valgus (acquired), left foot] Onset: 3 Chronic Asthma (1 source) Cough variant asthma; Translations: [COUGH VARIANT ASTHMA] Onset: 3 Chronic Calculus of urinary tract (6 sources) Calculus of kidney; Translations: [Kidney stone] Onset: 2 Episodic Chronic ulcer of skin (5 sources) Non-pressure chronic ulcer of other part of left foot limited to breakdown of skin; Translations: [Non-pressure chronic ulcer of other part of left foot with unspecified severity] Onset: 3 Chronic Complications of surgical procedures or medical care (5 sources) Other complications of procedures, not elsewhere classified, initial encounter; Translations: [OTH COMPLICATIONS PROC NEC INITIAL] Onset: 3 Episodic Conditions associated with dizziness or vertigo (4 sources) Dizziness and giddiness; Translations: [DIZZINESS AND GIDDINESS] Onset: 3 Episodic Congestive heart failure; nonhypertensive (4 sources) Heart failure, unspecified; Translations: [HEART FAILURE UNSPECIFIED] Onset: 2 Chronic Diabetes mellitus with complications (20 sources) Type 2 diabetes mellitus; Translations: [Type 2 diabetes mellitus with other specified complication] Onset: 2 Chronic Diabetes mellitus without complication (5 sources) Type 2 diabetes mellitus without complications; Translations: [TYPE 2 DM WITHOUT COMPLICATIONS] Onset: 2 Chronic Disorders of lipid metabolism (3 sources) Mixed hyperlipidemia; Translations: [Pure hypercholesterolemia, unspecified] Onset: 3 Chronic Disorders of teeth and jaw (1 source) 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; Translations: [ADHESIONS AND ANKYLOSIS LEFT TMJ] Onset: 3 Episodic Essential hypertension (3 sources) Essential (primary) hypertension; Translations: [Essential (primary) hypertension] Onset: 3 Chronic Genitourinary symptoms and ill-defined conditions (1 source) Nocturia 04-25-2020 Episodic Gout and other crystal arthropathies (5 sources) Gout, unspecified; Translations: [GOUT UNSPECIFIED] Onset: 2 Chronic Hepatitis (4 sources) Steatohepatitis; Translations: [Nonalcoholic steatohepatitis (HODGES)] Onset: 1 Resolved: 1 Chronic Hyperplasia of prostate (3 sources) Benign prostatic hypertrophy with outflow obstruction; Translations: [Benign prostatic hyperplasia with lower urinary tract symptoms] Onset: 3 Chronic Neoplasms of unspecified nature or uncertain behavior (1 source) 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 11-30-2020 Episodic Osteoarthritis (11 sources) Arthritis of right knee; Translations: [Unilateral primary osteoarthritis, right knee] Onset: 2 Resolved: 2 Chronic Other aftercare (1 source) 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; Translations: [[facility] USE ORAL HYPOGLYCEMIC DX] Onset: 3 Episodic Other aftercare (1 source) Other residential (current) drug therapy; Translations: [OTH [facility] CURRENT DRUG THERAPY] Onset: 3 Episodic Other aftercare (1 source) Long-term current use of anticoagulant 11-17-2020 Episodic Other and unspecified benign neoplasm (1 source) Benign neoplasm of descending colon 02-01-2021 Episodic Other and unspecified benign neoplasm (1 source) Benign neoplasm of sigmoid colon 02-01-2021 Episodic Other and unspecified benign neoplasm (1 source) History of polyp of colon 01-12-2021 Episodic Other connective tissue disease (4 sources) Pain in left foot; Translations: [PAIN IN LEFT FOOT] Onset: 3 Episodic Other connective tissue disease (1 source) Myalgia, other site; Translations: [MYALGIA OTHER SITE] Onset: 3 Episodic Other connective tissue disease (4 sources) Arthrodesis status; Translations: [ARTHRODESIS STATUS] Onset: 3 Episodic Other diseases of kidney and ureters (1 source) Hydronephrosis co-occurrent and due to calculus of kidney and ureter 04-13-2019 Episodic Other endocrine disorders (1 source) Testicular hypofunction; Translations: [Testicular hypofunction] Onset: 3 Chronic Other endocrine disorders (1 source) Male hypogonadism 06-03-2023 Chronic Other liver diseases (3 sources) Lesion of liver; Translations: [Liver disease, unspecified] Chronic Other liver diseases (1 source) Fatty (change of) liver, not elsewhere classified; Translations: [FATTY CHANGE LIVER NEC] Onset: 3 Chronic Other liver diseases (1 source) Liver mass 11-17-2020 Episodic Other lower respiratory disease (1 source) Personal history of pneumonia (recurrent); Translations: [PERSONAL HX OF PNEUMONIA RECURRENT] Onset: 3 Episodic Other male genital disorders (2 sources) Male erectile dysfunction, unspecified; Translations: [Erectile dysfunction] Onset: 3 Chronic Other nervous system disorders (1 source) Other chronic pain; Translations: [OTHER CHRONIC PAIN] Onset: 3 Chronic Other non-traumatic joint disorders (2 sources) Pain in right knee Onset: 2 Resolved: 2 Episodic Other nutritional; endocrine; and metabolic disorders (1 source) Morbid (severe) obesity due to excess calories; Translations: [MORBID SEVERE OBES D/T EXCESS RAFAEL] Onset: 3 Chronic Other nutritional; endocrine; and metabolic disorders (1 source) Body mass index (BMI) 39.0-39.9, adult; Translations: [BODY MASS INDEX BMI 39.0-39.9 ADULT] Onset: 3 Chronic Other nutritional; endocrine; and metabolic disorders (1 source) Body mass index 40+ - severely obese 04-13-2019 Chronic Other nutritional; endocrine; and metabolic disorders (1 source) Morbid obesity 04-13-2019 Chronic Other screening for suspected conditions (not mental disorders or infectious disease) (2 sources) Encounter for screening for malignant neoplasm of prostate; Translations: [Screening for malignant neoplasm done] Onset: 3 Episodic Other skin disorders (1 source) Corns and callosities; Translations: [CORNS AND CALLOSITIES] Onset: 3 Episodic Other upper respiratory infections (1 source) Acute upper respiratory infection, unspecified; Translations: [ACUTE UP RESPIRATORY INFECTION UNS] Onset: 3 Episodic Pulmonary heart disease (4 sources) Personal history of pulmonary embolism; Translations: [H/O: pulmonary embolus] Onset: 3 Episodic Residual codes; unclassified (1 source) Obstructive sleep apnea (adult) (pediatric); Translations: [OBSTRUCTIVE SLEEP APNEA] Onset: 3 Chronic Residual codes; unclassified (1 source) Family history of cancer; Translations: [Family history of malignant neoplasm of prostate] Onset: 3 Episodic Residual codes; unclassified (1 source) Family history of prostate cancer 06-03-2023 Episodic Skin and subcutaneous tissue infections (1 source) Cellulitis of left toe; Translations: [CELLULITIS OF LEFT TOE] Onset: 3 Episodic Spondylosis; intervertebral disc disorders; other back problems (7 sources) Spondylosis without myelopathy or radiculopathy, lumbar region; Translations: [Unspecified thoracic, thoracolumbar and lumbosacral intervertebral disc disorder] Onset: 2 Chronic Spondylosis; intervertebral disc disorders; other back problems (5 sources) Muscle spasm of back; Translations: [Backache] Onset: 3 Episodic Unclassified (4 sources) LOW BACK PAIN, UNSPECIFIED; Translations: [LOW BACK PAIN, UNSPECIFIED] Onset: 2 Unclassified (1 source) PERSONAL HISTORY OF COVID-19; Translations: [PERSONAL HISTORY OF COVID-19] Onset: 3 Unclassified (1 source) COUGH, UNSPECIFIED; Translations: [COUGH, UNSPECIFIED] Onset: 3 Unclassified (1 source) Patient encounter status 06-03-2023 Past or Other Problems Problem Classification Problem Date Documented Da te Episodic/Chronic Other aftercare (4 sources) Encounter for surgical aftercare following surgery on the circulatory system; Translations: [ENC SURG AFTRCARE FLW SURG CIRC SYS] Onset: 2 Episodic Other and unspecified benign neoplasm (1 source) Hemangioma of intra-abdominal structures; Translations: [Liver hemangioma D18.03] Onset: 1 Resolved: 1 Episodic Other connective tissue disease (1 source) Myalgia, unspecified site; Translations: [MYALGIA UNSPECIFIED SITE] Onset: 2 Episodic Other connective tissue disease (4 sources) Other muscle spasm; Translations: [OTHER MUSCLE SPASM] Onset: 2 Episodic Other male genital disorders (1 source) Disorder of prostate, unspecified; Translations: [DISORDER OF PROSTATE UNSPECIFIED] Onset: 2 Episodic Other non-traumatic joint disorders (3 sources) Pain in left knee; Translations: [PAIN IN LEFT KNEE] Onset: 2 Resolved: 2 Episodic Phlebitis; thrombophlebitis and thromboembolism (9 sources) Phlebitis and thrombophlebitis of superficial vessels of right lower extremity; Translations: [Phlebitis and thrombophlebitis of superficial vessels of left lower extremity] Onset: 2 Episodic Unclassified (1 source) LOW BACK PAIN, UNSPECIFIED; Translations: [LOW BACK PAIN, UNSPECIFIED] Onset: 3 Varicose veins of lower extremity (5 sources) Varicose veins of bilateral lower extremities with pain; Translations: [VARICOSE VNS MARIE LOW EXTREM W/PAIN] Onset: 2 Episodic Results Test Name Value Interpretation Reference Range Facil ity Lab Reportson 07-01-2023 Lab Reports [id number] TIFF Normal [facility] Lab Reportson 06-06-2023 Lab Reports [id number] FF Normal [facility] RAD - MISCon 06-04-2023 RAD - MISC [id number] F Normal [facility] Screenson 06-04-2023 Screens [id number] IFF Normal [facility] Patient Educationon 06-03-20 Patient Education Oncology Prostate Cancer Screening Prostate cancer screening is testing that is done to check for the presence of prostate cancer in men. The prostate gland is a walnut-sized gland that is located below the bladder and in front of the rectum in males. The function of the prostate is to add fluid to semen during ejaculation. Prostate cancer is one of the most common types of cancer in men. Who should have prostate cancer screening? Screening recommendations vary based on age and other risk factors, as well as between the professional organizations who make the recommendations. In general, screening is recommended if: ? You are age 50 to 70 and have an average risk for prostate cancer. You should talk with your health care provider about your need for screening and how often screening should be done. Because most prostate cancers are slow growing and will not cause , screening in this age group is generally reserved for men who have a 10- to 15-year life expectancy. ? You are younger than age 50, and you have these risk factors: ? Having a father, brother, or uncle who has been diagnosed with prostate cancer. The risk is higher if your family member's cancer occurred at an early age or if you have multiple family members with prostate cancer at an early age. ? Being a male who is Black or is of [place] or sub-Saharan descent. In general, screening is not recommended if: ? You are younger than age 40. ? You are between the ages of 40 and 49 and you have no risk factors. ? You are 70 years of age or older. At this age, the risks that screening can cause are greater than the benefits that it may provide. If you are at high risk for prostate cancer, your health care provider may recommend that you have screenings more often or that you start screening at a younger age. How is screening for prostate cancer done? The recommended prostate cancer screening test is a blood test called the prostate-specific antigen (PSA) test. PSA is a protein that is made in the prostate. As you age, your prostate naturally produces more PSA. Abnormally high PSA levels may be caused by: ? Prostate cancer. ? An enlarged prostate that is not caused by cancer (benign prostatic hyperplasia, or BPH). This condition is very common in older men. ? A prostate gland infection (prostatitis) or urinary tract infection. ? Certain medicines such as male hormones (like testosterone) or other medicines that raise testosterone levels. A rectal exam may be done as part of prostate cancer screening to help provide information about the size of your prostate gland. When a rectal exam is performed, it should be done after the PSA level is drawn to avoid any effect on the results. Depending on the PSA results, you may need more tests, such as: ? A physical exam to check the size of your prostate gland, if not done as part of screening. ? Blood and imaging tests. ? A procedure to remove tissue samples from your prostate gland for testing (biopsy). This is the only way to know for certain if you have prostate cancer. What are the benefits of prostate cancer screening? ? Screening can help to identify cancer at an early stage, before symptoms start and when the cancer can be treated more easily. ? There is a small chance that screening may lower your risk of dying from prostate cancer. The chance is small because prostate cancer is a slow-growing cancer, and most men with prostate cancer from a different cause. What are the risks of prostate cancer screening? The main risk of prostate cancer screening is diagnosing and treating prostate cancer that would never have caused any symptoms or problems. This is called overdiagnosisand overtreatment. PSA screening cannot tell you if your PSA is high due to cancer or a different cause. A prostate biopsy is the only procedure to diagnose prostate cancer. Even the results of a biopsy may not tell you if your cancer needs to be treated. Slow-growing prostate cancer may not need any treatment other than monitoring, so diagnosing and treating it may cause unnecessary stress or other side effects. Questions to ask your health care provider ? When should I start prostate cancer screening? ? What is my risk for prostate cancer? ? How often do I need screening? ? What type of screening tests do I need? ? How do I get my test results? ? What do my results mean? ? Do I need treatment? Where to find more information ? The [place] [employer]: www.cancer.org ? [place]: www.auanet.org Contact a health care provider if: ? You have difficulty urinating. ? You have pain when you urinate or ejaculate. ? You have blood in your urine or semen. ? You have pain in your back or in the area of your prostate. Summary ? Prostate cancer is a common type of cancer in men. The prostate gland is located below the bladder and in front of the rectum. This gland adds flu (more content not included)... Normal [facility] Urology Office/Clinic Noteon 06-03-2023 Urology Office/Clinic Note Chief Complaint 1yr PSA & KUB HPI Staff 1yr KUB & PSA DX: Kidney Stone, BPH & ED *No Urology Meds A1C 07/23/22 07/23/22 5.5 CMP 10/10/22 *BUN 25.0 Crea 1.41 eGFR 50 KUB 05/27/23 PSA 05/27/23- 1.46 Pt is taking Testosterone Inj from PCP due to hypogonadism. Denies symptoms of Kidney Stones. Denies all urinary concerns. History of Present Illness staff HPI reviewed and agree. Review of Systems PHQ Score Initial Depression Screen Score: 0 SCORE no fever, chills, malaise, myalgia. no rash/lesions. no chest pain, palpitations, or SOB. no abdominal pain, nausea, vomiting. no unilateral calf swelling, redness, pain Physical Exam Vitals & Measurements HR: 70(Peripheral) RR: 16 BP: 138/74 HT: 74 in HT: 188 cm WT: 138 kg WT: 303.6 lb BMI: 39.04 General: nontoxic, NAD Mouth: moist mucosa Lungs: normal respiratory effort Cardio: regular rate, good distal perfusion Abdomen: nondistended, no suprapubic distention or tenderness, no CVA tenderness Neurologic: Grossly normal Skin: No rashes or suspicious lesions CHAUNCEY: benign. no asymmetry, induration, nodules. Assessment/Plan Former Dr. Eden pt here with his . 1. Kidney calculi (N20.0: Calculus of kidney) CT AP wo/w con 11/01/20 [facility] - R renal stones, measuring up to 7mm KUB 05/27/22 [facility] - two R renal stones, measuring about 10mm. KUB 05/27/23 [facility] - R renal stones measuring up to 8mm. Discussed recent imaging results. Stones remain unchanged. Denies any stone episodes since last encounter. Denies any gross hematuria or pain with urination. States he would still not like to proceed with any surgical interventions at this time. Pt knows to call our office with any changes in sxs. 2. Screening PSA (prostate specific antigen) (Z12.5: Encounter for screening for malignant neoplasm of prostate) PSA 04/17/20 - 0.73 10/09/20 - 0.51 05/03/22 - 0.57 05/27/23 - 1.46 Discussed recent PSA level which has increased from prior. This could indicate prostate cancer, prostate infection, prostate inflammation without infection, prostate manipulation, or benign prostate enlargement (BPH). The importance of the rate of PSA rise has also been discussed. The options for management have been discussed, including prostate biopsy versus close monitoring of the PSA over time. Reports if he were to have to get a bx, he would like to be under general anesthesia. Will obtain a repeat PSA level at this time and discuss options further if repeat level does not decrease. CHAUNCEY: no hard nodules -repeat PSA in 6 months 3. Family history of prostate cancer in father (Z80.42: Family history of malignant neoplasm of prostate) Father tx w/ prostatectomy. 4. ED (erectile dysfunction) (N52.9: Male erectile dysfunction, unspecified) DEONNA (19). Pt's reports he is unable to ejaculate. Also unable to maintain erection. Has sex drive. Discussed options for ED, including oral medications, erection pumps, MUSE intraurethral pellet, intracorporal injection therapy, and surgical options. Pt would like to try an oral med at this time. Discussed the medication side effects, and the patient will monitor closely for these, as well as for symptom improvement. If severe side effects occur, the medication should be stopped and the office notified. -Begin Tadalafil 10-20mg prn. 5. BPH with urinary obstruction (N40.1: Benign prostatic hyperplasia with lower urinary tract symptoms) IPSS 2 (5), QoL 0 (0). Not currently taking any BPH meds. Not bothersome enough to warrant tx per pt. 6. Hypogonadism male (E29.1: Testicular hypofunction) Gets testosterone inj 200mg per PCP. Follow up with PSA in 6 mos or sooner if needed. Pt understands and agrees with plan. Follow-up With When Contact Information LIZ HERNANDEZ PA-C, URL [address] [place] [address] [phone] Additional Instructions: 6 mos w/ PSA Patient Education Prostate Cancer Screening Documentation recorded by the zahraaibchris Burr accurately reflects the services(s) I performed and decisions made by me. Authenticated by Liz Hernandez PA-C on 06/03/2023 11:47:50. IMaru, personally scribed for Liz Hernandez PA-C on 06/03/2023 10:24:48. . Problem List/Past Medical History Ongoing Abnormal abdominal CT scan BMI 40.0-44.9, adult BPH with urinary obstruction Chronic anticoagulation Dorsalgia ED (erectile dysfunction) Enlarged prostate with urinary obstruction Family history of prostate cancer in father History of pulmonary embolism Hydronephrosis with renal and ureteral calculus obstruction Hypogonadism male Kidney calculi Lesion of liver greater than 1 cm in diameter Liver masses Morbid obesity Nocturia Personal history of colonic polyps Screening PSA (prostate specific antigen) Tubular adenoma of colon Tubular adenoma of colon Historical No qualifying data Procedure/Surgical History CT guided bi (more content not included)... Normal [facility] Comment on above: Result Comment: Elec tronically Signed By: LIZ HERNANDEZ PA-C\.br\Date and Time Signed: 06/03/23 11:48 EST\.br\Electronically Co-Signed By: Maru Burr\Rustybr\Date and Time Co-Signed: 06/03/23 10:26 EST Immunization Recordson 04-23 Immunization Records [id number] Normal [facility] Consultation Noteon 04-15-20 Consultation Note [id number]:127 Normal [facility] RAD - MISCon 12-24-2022 RAD - MISC [id number]: 127 Normal [facility] XR LSPINE W_OBLS AND FLEX_EX Ton 12-05-2022 XR LSPINE W_OBLS AND FLEX_EXT EXAMINATION: XR LSPINE W_OBLS AND FLEX_EXT HISTORY: Lumbar spondylosis COMPARISON: 02/25/2018 FINDINGS: BONES: Neutral projection demonstrates 2 mm anterolisthesis of L3 on L4. Mild spondylosis. Moderate facet osteoarthropathy. No transient spondylolisthesis with flexion or extension DISC SPACES: Mild widespread disc height narrowing. PARASPINOUS: Negative. No paraspinous abnormality is seen. OTHER: Extensive vascular calcifications IMPRESSION: Degenerative changes 2 mm anterolisthesis of L3 with no dynamic instability Electronically authenticated by: RACHEAL GRAVES Date: 2022-12-05 09:46 Normal [facility] Consultation Noteon 12-05-19 23 Consultation Note [id number]:127 Normal [facility] Operative Reporton Operative Report [id number]:127 Normal [facility] CBC AUTO DIFFon 10-21-2022 BASO # 0.1 103/ul Normal 0.0-0.1 [facility] Comment on above: Performed By: #### P OCGLUC #### [facility] [address] [place] [address] Dr. Juliet García Basophils/100 WBC (Bld) 0.7 % Normal 0.2-2.0 [facility] Comment on above: Performed By: #### P OCGLUC #### [facility] [address] [place] [address] Dr. Juliet García EO # 0.4 103/ul Normal 0.0-0.7 [facility] Comment on above: Performed By: #### P OCGLUC #### [facility] [address] [place] [address] Dr. Juliet García Eosinophils/100 WBC (Bld) 5.3 % Normal 0.9-7.0 [facility] Comment on above: Performed By: #### P OCGLUC #### [facility] [address] [place] [address] Dr. Juliet García Erythrocyte distribution wid th (RBC) [Ratio] 14.0 % Normal 11.0-15.0 [facility] Comment on above: Performed By: #### P OCGLUC #### [facility] [address] [place] [address] Dr. Juliet García Hematocrit (Bld) [Volume fraction] 43.6 % Normal 4 2.0-54.0 [facility] Comment on above: Performed By: #### P OCGLUC #### [facility] [address] [place] [address] Dr. Juliet García Hemoglobin (Bld) [Mass/Vol] 14.9 g/dL Normal 14.0-18. 0 [facility] Comment on above: Performed By: #### P OCGLUC #### [facility] [address] [place] [address] Dr. Juliet García IG # 0.03 10e3/ul Normal 0.00-0.03 [facility] Comment on above: Performed By: #### P OCGLUC #### [facility] [address] [place] [address] Dr. Juliet García IG % 0.4 % Normal 0.0-0.5 [facility] Comment on above: Performed By: #### P OCGLUC #### [facility] [address] [place] [address] Dr. Juliet García LYMPH # 2.0 103/ul Normal 1.2-3.8 [facility] Comment on above: Performed By: #### P OCGLUC #### [facility] [address] [place] [address] Dr. Juliet García Lymphocytes/100 WBC (Bld) 29.3 % Normal 20.5-60.0 [facility] Comment on above: Performed By: #### P OCGLUC #### [facility] [address] [address] [address] Juliet García MANUAL DIFF REQ NO Normal [facility] Comment on above: Performed By: #### P OCGLUC #### [facility] [address] [address] [address] Juliet García MCH (RBC) [Entitic mass] 33.4 pg Normal 25.9-34.0 [facility] Comment on above: Performed By: #### P OCGLUC #### [facility] [address] [address] [address] Juliet García MCHC (RBC) [Mass/Vol] 34.2 g/dL Normal 29.9-35.2 [facility] Comment on above: Performed By: #### P OCGLUC #### [facility] [address] [place] [address] Dr. Juliet García MCV (RBC) [Entitic vol] 97.8 fL Critically high 80.0-94 .0 [facility] Comment on above: Performed By: #### P OCGLUC #### [facility] [address] [place] [address] Dr. Juliet García MONO # 0.7 103/ul Normal 0.3-0.8 [facility] Comment on above: Performed By: #### P OCGLUC #### [facility] [address] [place] [address] Dr. Juliet García Monocytes/100 WBC (Bld) 9.9 % Normal 1.7-12.0 [facility] Comment on above: Performed By: #### P OCGLUC #### [facility] [address] [place] [address] Dr. Juliet García NEUT # 3.7 103/ul Normal 1.4-6.5 [facility] Comment on above: Performed By: #### P OCGLUC #### [facility] [address] [place] [address] Dr. Juliet García Neutrophils/100 WBC (Bld) 54.4 % Normal 43.0-75.0 [facility] Comment on above: Performed By: #### P OCGLUC #### [facility] [address] [address] [address] Juliet García Platelet mean volume (Bld) [Entitic vol] 9.0 fL Critically low 9.5-13.5 [facility] Comment on above: Performed By: #### P OCGLUC #### [facility] [address] [address] [address] Juliet García PLT 211 103/ul Normal 150-450 [facility] Comment on above: Performed By: #### P OCGLUC #### [facility] [address] [address] [address] Juliet García RBC 4.46 106/ul Critically low 4.70-6.10 [facility] Comment on above: Performed By: #### P OCGLUC #### [facility] [address] [address] [address] Juliet García WBC 6.8 103/ul Normal 4.0-11.0 [facility] Comment on above: Performed By: #### P OCGLUC #### [facility] [address] [address] [address] Juliet García POINT OF CARE GLUCOSEon 10-12 Glucose [Mass/Vol] 100 mg/dL Normal 74-106 [facility] [place] [facility] Comment on above: Performed By: #### P OCGLUC #### [facility] [address] [address] [address] Juliet García Glucose [Mass/Vol] 94 mg/dL Normal 74-106 [facility] Comment on above: Performed By: #### A 1C #### [facility] [address] [address] [address] Juliet García Lab Reportson 10-14-2022 Lab Reports [id number] D:127 Normal [facility] Correspo ndenceon 10-14-2022 [facility] Correspondence [id number]:127 Normal [facility] PROF CHEM 8 (BAS METB)on Anion gap [Moles/Vol] 14.0 mmol/L Normal [facility] Comment on above: Performed By: #### B MP #### [facility] [address] [address] [address] Juliet García Calcium [Mass/Vol] 9.0 mg/dL Normal 8.5-10.1 [facility] [place] [facility] Comment on above: Performed By: #### B MP #### [facility] [address] [address] [address] Juliet García Chloride [Moles/Vol] 107 mmol/L Normal 98-107 [facility] Comment on above: Performed By: #### B MP #### [facility] [address] [address] [address] Juliet García CO2 [Moles/Vol] 28.7 mmol/L Normal 21.0-32.[address] [facility] Comment on above: Performed By: #### B MP #### [facility] [address] [address] [address] Juliet García Creatinine [Mass/Vol] 1.41 mg/dL Critically high 0.70-1.30 [facility] Comment on above: Performed By: #### B MP #### [facility] [address] [address] [address] Juliet García EGFR-AF FILIPINO >60 Normal >=60 [facility] Comment on above: Performed By: #### B MP #### [facility] [address] [address] [address] Juliet García EGFR-NON AF FILIPINO 50 mL/min/1.73m2 Critically low >=60 [facility] Comment on above: Performed By: #### B MP #### [facility] [address] [address] [address] Juliet García Glucose [Mass/Vol] 95 mg/dL Normal 74-106 [facility] [place] [facility] Comment on above: Performed By: #### B MP #### [facility] [address] [address] [address] Juliet García Potassium [Moles/Vol] 4.7 mmol/L Normal 3.5-5.1 [facility] Comment on above: Performed By: #### B MP #### [facility] [id number] Juliet García Sodium [Moles/Vol] 145 mmol/L Normal 136-145 [facility] [place] [facility] Comment on above: Performed By: #### B MP #### [facility] [address] [address] [address] Juliet García Urea nitrogen [Mass/Vol] 25.0 mg/dL Critically high 7.0-18 .0 [facility] Comment on above: Performed By: #### B MP #### [facility] [address] [address] [address] Juliet García Urea nitrogen/Creatinine [Mass ratio] 17.7 mg/mg Normal [facility] Comment on above: Performed By: #### B MP #### [facility] [address] [address] [address] Juliet García Office Visiton 07-31-2022 Follow-up visit [id number] Abhinav Locke 1955 M Date Provider Department Center 07/31/2022 BENTLEY MENDOZA [facility] Family History Problem Relation Age of Onset Stroke Father Family Status - Relation Status Age at Father Level of Service:64147 [place] OFFICE/OUTPATIENT ESTABLISHED MOD MDM 30-39 MIN Reason for Visit and Comments: Hyperlipidemia [182] Hypertension [708085] history of PE [Other] Normal [facility] CULTURE WOUNDon 07-24-2022 CULTURE WOUND Culture Observations : No growth of anaerobes at 72 hours. Isolate 1 Stenotrophomonas maltophilia Moderate growth of ORGANISM 1 Stenotrophomonas maltophilia ANTIBIOTIC M.I.C RX STATUS Levofloxacin 1 S F Trimethoprim/Sulfamethoxazole <=20 S F Normal T [facility] Comment on above: Performed By: #### W OUNDCX ####[facility] [address] [place], [place] [address]XcDr. Juliet García GLYCOHEMOGLOBIN A1Con 2022 ADA RECOMMENDATION SEE BELOW Normal [facility] Comment on above: Result Comment: ADA RECOMMENDED LIMIT 4.0 - 6.0 ADA THERAPEUTIC TARGET < 7.0 ACTION SUGGESTED > 7.0 Performed By: #### A 1C #### [facility] [address] [address] [address] Juliet García Glucose [Mass/Vol] 111 mg/dL Normal [facility] Comment on above: Performed By: #### A 1C #### [facility] [address] [address] [address] Juliet García HbA1c (Bld) [Mass fraction] 5.5 % Normal 4.5-6.2 [facility] Comment on above: Performed By: #### A 1C #### [facility] [address] [place] [address] Dr. Juliet García ECHOCARDIO M/2D COMPLETEon 1 08-29-2021 ECHOCARDIO M/2D COMPLETE Patient: CARLOS LOCKE Exam Date: 06/28/2022 : 1955 Gender:M Ordering : DR LOLY BARNARD M.D. Admission #: [id number] Family : Order #: [id number] CLICK HERE TO VIEW EXAM ECHOCARDIOGRAM REPORT PROCEDURE: CARDIO PULMONARY ECHOCARDIO M/2D COMP INDICATIONS: Heart failure COMPARISON: None. DESCRIPTION: COMPLETE ECHOCARDIOGRAM Real-time transthoracic echocardiography with 2D, M-mode, spectral and color flow Doppler performed. QUALITY: Technical quality was adequate. 75 299# BP 128/68 LEFT VENTRICLE: Normal chamber size. Normal left ventricular wall thickness. Left ventricular systolic function is normal. LV EF: Normal left ventricular ejection fraction, (55%). DIASTOLIC: Normal diastolic function. ATRIAL SEPTUM: Visually appears intact. LEFT ATRIUM: Normal chamber size. RIGHT ATRIUM: Normal chamber size. RIGHT VENTRICLE: Mildly dilated. Normal right ventricular systolic function. TRICUSPID VALVE: Normal mobility and thickness. No stenosis with trivial regurgitation. No evidence of pulmonary hypertension. RVSP 33 mmHg MITRAL VALVE: Normal mobility and thickness. No evidence of mitral valve stenosis. There is no mitral annular calcification. No mitral regurgitation. AORTIC VALVE: Normal trileaflet appearance. Mildly calcified aortic valve. Normal leaflet mobility. No evidence of aortic valve stenosis. No aortic regurgitation. AORTIC ROOT: Normal diameter and appearance. PULMONIC VALVE: Normal thickness and mobility. No stenosis. Trivial regurgitation. PERICARDIUM: No evidence of pericardial effusion. IVC: Collapses with inspirations. PLEURA: CONCLUSION: 1. Left ventricular systolic function is normal. LVEF is 55%. 2. The right ventricle is mildly dilated with normal systolic function. 3. No significant valvular dysfunction. 4. Normal right-sided pressures. 5. No pericardial effusion. Adult Echocardiography Procedure Report Left Ventricle LVEDD (3.7 - 5.6 cm): 5.44 cm LVESD (2.2 - 4.0 cm): 3.44 cm LVIVS thickness (0.6 - 1.2 cm): 1.21 cm LVPW thickness (0.5 - 1.0 cm): 0.99 cm e': 0.08 m/s E - e': 5.13 LVOT Max Gradient: 2.11 mm[Hg] Peak Velocity (LVOT): 0.73 m/s LVOT Diameter 2.86 cm Left Ventricular Ejection Fraction: 55 % Left Atrium LA Volume Index (2D A2C): 45.35 ml, 45.35 ml Left Atrium Systolic Dimension: 4.30 cm Mitral Valve MV E to A Ratio: 0.79 Mitral Valve A-Wave Peak Velocity: 0.50 m/s Mitral Valve E-Wave Peak Velocity: 0.39 m/s Right Ventricle Aorta AO Root Diam: 3.95 cm Aortic Valve AoV Area (Peak Jose): 4.48 cm2, 4.48 cm2 Peak Velocity(Antegrade Flow): 1.04 m/s Peak Gradient(Antegrade Flow): 4.36 mm[Hg] Tricuspid Valve Peak Velocity (Regurgitant Flow): 2.74 m/s Peak Velocity: 0.37 m/s Pulmonic Valve Peak Velocity: 1.17 m/s, 1.13 m/s Peak Gradient: 5.52 mm[Hg], 5.11 mm[Hg] Right Atrium Right Atrium Systolic Pressure: 42.50 ml, 42.50 ml Dictated by: Scout Mcmanus M.D. on 07/04/2022 at 13:28 Approved by: Scout Mcmanus M.D. on 07/04/2022 at 13:38 Normal [facility] [facility] URIC ACID SERUMon 06-10-2022 Urate [Mass/Vol] 6.9 mg/dL Normal 3.5-7.[address] [facility] Comment on above: Performed By: #### A 1C #### [facility] [address] [place] [address] Dr. Juliet García XR KUB 1 VIEWon 05-28-2022 XR KUB 1 VIEW EXAMINATION: XR KUB 1 VIEW HISTORY: Kidney stone COMPARISON: 04/17/2020 FINDINGS: KIDNEY/URETER - RIGHT: r 2 nephroliths measuring up to 10 mm KIDNEY/URETER - LEFT: No visible renal or ureteral calcifications. PELVIS: No visible ureteral calcifications. Any visible calcifications favor phleboliths. BOWEL: No abnormal dilation or deviation. BONES: Degenerative changes OTHER: Negative. No abnormal gaseous collections. IMPRESSION: Right nephrolithiasis Electronically authenticated by: RACHEAL GRAVES Date: 2022-05-28 07:31 Normal [facility] CBC AUTO DIFFon 05-03-2022 BASO # 0.1 103/ul Normal 0.0-0.1 [facility] Comment on above: Performed By: #### C BC #### [facility] [address] [place] [address] Dr. Juliet García Basophils/100 WBC (Bld) 0.9 % Normal 0.2-2.0 [facility] Comment on above: Performed By: #### C BC #### [facility] [address] [place] [address] Dr. Juliet García EO # 0.4 103/ul Normal 0.0-0.7 [facility] Comment on above: Performed By: #### C BC #### [facility] [address] [place] [address] Dr. Juliet García Eosinophils/100 WBC (Bld) 5.2 % Normal 0.9-7.0 [facility] Comment on above: Performed By: #### C BC #### [facility] [address] [place] [address] Dr. Juliet García Erythrocyte distribution wid th (RBC) [Ratio] 13.6 % Normal 11.0-15.0 [facility] Comment on above: Performed By: #### C BC #### [facility] [address] [place] [address] Dr. Juliet García Hematocrit (Bld) [Volume fraction] 40.5 % Critically low 42.0-54.0 [facility] Comment on above: Performed By: #### C BC #### [facility] [address] [place] [address] Dr. Juliet García Hemoglobin (Bld) [Mass/Vol] 13.7 g/dL Critically low 14.0 -18.0 [facility] Comment on above: Performed By: #### C BC #### [facility] [address] [place] [address] Dr. Juliet García IG # 0.02 10e3/ul Normal 0.00-0.03 [facility] Comment on above: Performed By: #### C BC #### [facility] [address] [place] [address] Dr. Juliet García IG % 0.3 % Normal 0.0-0.5 [facility] Comment on above: Performed By: #### C BC #### [facility] [address] [place] [address] Dr. Juliet García LYMPH # 1.9 103/ul Normal 1.2-3.8 [facility] Comment on above: Performed By: #### C BC #### [facility] [address] [place] [address] Dr. Juliet García Lymphocytes/100 WBC (Bld) 27.7 % Normal 20.5-60.0 [facility] Comment on above: Performed By: #### C BC #### [facility] [address] [place] [address] Dr. Juliet García MANUAL DIFF REQ NO Normal [facility] Comment on above: Performed By: #### C BC #### [facility] [address] [place] [address] Dr. Juliet García MCH (RBC) [Entitic mass] 33.3 pg Normal 25.9-34.0 [facility] Comment on above: Performed By: #### C BC #### [facility] [address] [address] [address] Juliet García MCHC (RBC) [Mass/Vol] 33.8 g/dL Normal 29.9-35.2 [facility] Comment on above: Performed By: #### C BC #### [facility] [address] [place] [address] Dr. Juliet García MCV (RBC) [Entitic vol] 98.3 fL Critically high 80.0-94 .0 [facility] Comment on above: Performed By: #### C BC #### [facility] [address] [place] [address] Dr. Juliet García MONO # 0.7 103/ul Normal 0.3-0.8 [facility] Comment on above: Performed By: #### C BC #### [facility] [address] [place] [address] Dr. Juliet García Monocytes/100 WBC (Bld) 9.9 % Normal 1.7-12.0 [facility] Comment on above: Performed By: #### C BC #### [facility] [address] [place] [address] Dr. Juliet García NEUT # 3.8 103/ul Normal 1.4-6.5 [facility] Comment on above: Performed By: #### C BC #### [facility] [address] [place] [address] Dr. Juliet García Neutrophils/100 WBC (Bld) 56.0 % Normal 43.0-75.0 [facility] Comment on above: Performed By: #### C BC #### [facility] [address] [place] [address] Dr. Juliet García Platelet mean volume (Bld) [Entitic vol] 9.0 fL Critically low 9.5-13.5 [facility] Comment on above: Performed By: #### C BC #### [facility] [address] [place] [address] Dr. Juliet García PLT 201 103/ul Normal 150-450 [facility] Comment on above: Performed By: #### C BC #### [facility] [address] [address] [address] Juliet García RBC 4.12 106/ul Critically low 4.70-6.10 [facility] Comment on above: Performed By: #### C BC #### [facility] [address] [address] [address] Juliet García WBC 6.7 103/ul Normal 4.0-11.0 [facility] Comment on above: Performed By: #### C BC #### [facility] [address] [place] [address] Dr. Juliet García GLYCOHEMOGLOBIN A1Con 2021 ADA RECOMMENDATION SEE BELOW Normal [facility] Comment on above: Result Comment: ADA RECOMMENDED LIMIT 4.0 - 6.0 ADA THERAPEUTIC TARGET < 7.0 ACTION SUGGESTED > 7.0 Performed By: #### A 1C #### [facility] [address] [place] [address] Dr. Juliet García Glucose [Mass/Vol] 108 mg/dL Normal [facility] Comment on above: Performed By: #### A 1C #### [facility] [address] [place] [address] Dr. Juliet García HbA1c (Bld) [Mass fraction] 5.4 % Normal 4.5-6.2 [facility] Comment on above: Performed By: #### A 1C #### [facility] [address] [place] [address] Dr. Juliet García LIPID PROFILEon 05-03-2022 CHOL-HDL RATIO NORM SEE BELOW Normal [facility] Comment on above: Result Comment: 3.3 - 4.4 LOW RISK 4.4 - 7.1 AVERAGE RISK 7.1 - 11.0 MODERATE RISK >11.0 HIGH RISK Performed By: #### L IPID, CMP #### [facility] [address] [place] [address] Dr. Juliet García Cholesterol [Mass/Vol] 154 mg/dL Normal <=200 [facility] Comment on above: Performed By: #### L IPID, CMP #### [facility] [address] [place] [address] Dr. Juliet García Cholesterol in HDL [Mass/Vol] 29 mg/dL Critically low 40 -60 [facility] Comment on above: Performed By: #### L IPID, CMP #### [facility] [address] [address] [address] Juliet García Cholesterol in LDL [Mass/Vol] 64.2 mg/dL Normal [facility] Comment on above: Performed By: #### L IPID, CMP #### [facility] [address] [address] [address] Juliet García Cholesterol.total/Cholestero l in HDL [Mass ratio] 5.3 {ratio} Normal [facility] Comment on above: Performed By: #### L IPID, CMP #### [facility] [address] [address] [address] Juliet García HDL NORMAL > or = 60 mg/dl - LO W CARDIOVASCULAR RISK <40 mg/dl - HIGH CARDIOVASCULAR RISK Normal [facility] Comment on above: Performed By: #### L IPID, CMP #### [facility] [address] [address] [address] Juliet García LDL CALC NORMAL SEE BELOW Normal [facility] Comment on above: Result Comment: <100 mg/dl OPTIMAL 100 - 129 mg/dl NEAR OR ABOVE OPTIMAL 130 - 159 mg/dl BORDERLINE HIGH 160 - 189 mg/dl HIGH >190 mg/dl VERY HIGH Performed By: #### L IPID, CMP #### [facility] [address] [address] [address] Juliet García Triglyceride [Mass/Vol] 304 mg/dL Critically high <=150 [facility] Comment on above: Performed By: #### L IPID, CMP #### [facility] [address] [address] [address] Juliet García VLDL CALC 60.8 mg/dL Normal [facility] Comment on above: Performed By: #### L IPID, CMP #### [facility] [address] [address] [address] Juliet García PROF 14(COMP METB)on 10-21-2 022 Albumin [Mass/Vol] 3.7 g/dL Normal 3.4-5.0 [facility] Comment on above: Performed By: #### L IPID, CMP #### [facility] [address] [address] [address] Juliet García Albumin/Globulin [Mass ratio] 1.1 {ratio} Normal [facility] Comment on above: Performed By: #### L IPID, CMP #### [facility] [address] [address] [address] Juliet García ALP [Catalytic activity/Vol] 87 U/L Normal 46-116 [facility] Comment on above: Performed By: #### L IPID, CMP #### [facility] [address] [address] [address] Juliet García ALT [Catalytic activity/Vol] 52 U/L Normal 16-63 [facility] Comment on above: Performed By: #### L IPID, CMP #### [facility] [address] [address] [address] Juliet García Anion gap [Moles/Vol] 11.5 mmol/L Normal [facility] Comment on above: Performed By: #### L IPID, CMP #### [facility] [address] [address] [address] Juliet García AST [Catalytic activity/Vol] 27 U/L Normal 15-37 [facility] Comment on above: Performed By: #### L IPID, CMP #### [facility] [address] [address] [address] Juliet García Bilirubin [Mass/Vol] 0.4 mg/dL Normal 0.2-1.0 [facility] Comment on above: Performed By: #### L IPID, CMP #### [facility] [address] [address] [address] Juliet García Calcium [Mass/Vol] 8.7 mg/dL Normal 8.5-10.1 [facility] Comment on above: Performed By: #### L IPID, CMP #### [facility] [address] [address] [address] Juliet García Chloride [Moles/Vol] 106 mmol/L Normal 98-107 [facility] Comment on above: Performed By: #### L IPID, CMP #### [facility] [address] [place] [address] Dr. Juliet García CO2 [Moles/Vol] 28.2 mmol/L Normal 21.0-32.[address] [facility] Comment on above: Performed By: #### L IPID, CMP #### [facility] [address] [place] [address] Dr. Juliet García Creatinine [Mass/Vol] 1.21 mg/dL Normal 0.70-1.30 [facility] Comment on above: Performed By: #### L IPID, CMP #### [facility] [address] [place] [address] Dr. Juliet García EGFR-AF FILIPINO >60 Normal >=[address] [facility] Comment on above: Performed By: #### L IPID, CMP #### [facility] [address] [place] [address] Dr. uJliet García EGFR-NON AF FILIPINO =60 Normal >=60 [facility] Comment on above: Performed By: #### L IPID, CMP #### [facility] [address] [place] [address] Dr. Juliet García Globulin (S) [Mass/Vol] 3.4 g/dL Normal [facility] Comment on above: Performed By: #### L IPID, CMP #### [facility] [address] [place] [address] Dr. Juliet García Glucose [Mass/Vol] 100 mg/dL Normal 74-106 [facility] Comment on above: Performed By: #### L IPID, CMP #### [facility] [address] [place] [address] Dr. Juliet García Potassium [Moles/Vol] 4.7 mmol/L Normal 3.5-5.1 [facility] Comment on above: Performed By: #### L IPID, CMP #### [facility] [address] [place] [address] Dr. Juliet García Protein [Mass/Vol] 7.1 g/dL Normal 6.4-8.2 [facility] Comment on above: Performed By: #### L IPID, CMP #### [facility] [address] [address] [address] Juliet García Sodium [Moles/Vol] 141 mmol/L Normal 136-145 [facility] Comment on above: Performed By: #### L IPID, CMP #### [facility] [address] [address] [address] Juliet García Urea nitrogen [Mass/Vol] 23.0 mg/dL Critically high 7.0-18 .0 [facility] Comment on above: Performed By: #### L IPID, CMP #### [facility] [address] [place] [address] Dr. Juliet García Urea nitrogen/Creatinine [Mass ratio] 19.0 mg/mg Normal [facility] Comment on above: Performed By: #### L IPID, CMP #### [facility] [address] [place] [address] Dr. Juliet García VC CONSULT FOLLOWUPon 2021 VC CONSULT FOLLOWUP Patient: AMBROSE LOCKE Exam Date: 04/08/2022 : 1955 Gender:M Ordering : DR RACHEAL GRAVES M.D. Admission #: [id number] Family : Order #: [id number] CLICK HERE TO VIEW EXAM RADIOLOGY REPORT PROCEDURE: VEIN CENTER CONSULTATION FOLLOWUP VEIN CENTER - OFFICE VISIT FOLLOW UP COMPARISON: VC CONSULT FOLLOWUP, 03/25/2022. VC CONSULT FOLLOWUP, 02/18/2022. PROGRESS NOTES: The patient reports no problems following micro foam chemical ablation of the right leg. The patient did not require oral analgesics. The patient did wear his compression stockings. The patient has tried to follow our recommendations to increase activity, particularly walking. The patient reports complete resolution of his initial presenting symptoms. He does complain of continuing peripheral neuropathy, which I feel likely is related to his long-standing diabetes. I did tell the patient this was related some held to his venous disease he could see some improvement over the next 6-12 months. The patient is currently on gabapentin 300 milligrams t.i.d. With some good result. This is prescribed by his primary care physician. Review of the ultrasound performed the same day demonstrates occlusive thrombus extending throughout the treated right leg varicose veins. No significant incompetent varicosities are identified in the right or left leg by ultrasound today. The patient's treatments are completed at this time. The patient was asked to return in 1-2 years for a follow-up. Continued use of compression stockings and exercise was discussed with the patient. IMPRESSION: 1. Successful ablation of right leg incompetent varicose veins 2. No significant residual incompetent varicose veins on the right or left leg PLAN: Follow-up as needed Nurse notes, history and physical were reviewed and confirmed, see attached forms. The nurse was present throughout the physical exam and consultation Dictated by: Racheal Graves MD on 04/08/2022 at 11:28 Approved by: Racheal Graves MD on 04/08/2022 at 11:30 Normal [facility] VC EXT VENOUS RT LIMITEDon 0 04-08-2022 VC EXT VENOUS RT LIMITED Patient: CARLOS LOCKE Exam Date: 04/08/2022 : 1955 Gender:M Ordering : DR RACHEAL GRAVES M.D. Admission #: [id number] Family : Order #: [id number] CLICK HERE TO VIEW EXAM RADIOLOGY REPORT PROCEDURE: VEIN CENTER EXTREMITY VENOUS RIGHT LIMITED COMPARISON: VC EXT VENOUS RT LIMITED, 03/25/2022. INDICATIONS: Phlebitis of superficial veins of lower extremity I80.01 TECHNIQUE: Lower extremity duncan scale and Duplex Doppler evaluation of the deep venous system from the inguinal ligament through the calf veins. FINDINGS: REGION: Right lower extremity. THROMBI: Negative for DVT. Varithena induced thrombus visualized at dist/med calf, distal calf GSV, and dist/med thigh. COMPRESSIBILITY: Noncompressibility corresponding to thrombus FLOW: Absent flow corresponding to thrombus OTHER: Patent varicose vein dist/ant calf 2.5mm with 1.1s reflux. Patent varicose vein mid/med calf 2.8mm with 0s reflux. *Exam performed in accordance with [facility] practice guidelines- Peripheral venous ultrasound, October 07, 2009. CONCLUSION: Post ablation occlusion of right leg incompetent varicose veins Dictated by: Racheal Graves MD on 04/08/2022 at 11:31 Approved by: Racheal Graves MD on 04/08/2022 at 11:31 Normal [facility] VC INJ FOAM SCLERO W US MLTI on 04-03-2022 VC INJ FOAM SCLERO W US MLTI Patient: CARLOS LOCKE Exam Date: 04/03/2022 : 1955 Gender:M Ordering : DR RACHEAL GRAVES M.D. Admission #: [id number] Family : DR NATHALY BOONE . Order #: [id number] CLICK HERE TO VIEW EXAM RADIOLOGY REPORT PROCEDURE: VEIN CENTER INJECTION FOAM SCLEROSING SOLUTION WITH ULTRASOUND MULTIPLE VEINS COMPARISON: VC INJ FOAM SCLERO W US MLTI, 02/13/2022. Pre-operative Diagnosis: CEAP class C3 venous insufficiency with pain, tenderness, edema and incompetent right great saphenous vein and saphenous tributaries/varicose veins, chronic venous insufficiency right leg secondary to venous incompetence Post-operative Diagnosis: CEAP class C3 venous insufficiency with pain, tenderness, edema and incompetent right great saphenous vein and saphenous tributaries/varicose veins, chronic venous insufficiency right leg secondary to venous incompetence Procedure Performed: 1. Ultrasound-guided microfoam chemical ablation with Varithena(r) 2. Intraoperative ultrasound guidance Physician: Racheal Graves M.D. Anesthesia: None Indications for Procedure: 66-year-old male who presents with a long history of lower extremity pain swelling neuropathy with severe pain. The patient failed conservative medical therapy including medical compression stockings, exercise and analgesics. Prior procedures include intravenous laser ablation Multiple incompetent varicosities of the right leg. Duplex scan showed reflux and enlarged diameters up to 5 mm. The patient underwent informed consent including management options where the complications of infection, bleeding, pain, and skin injury were discussed. Particular attention was spent discussing thrombus extension and deep vein thrombosis as well as the possibility of pulmonary embolus and treatment with oral or injectable blood thinners. Procedure: The patient walked to the procedure room. All applicable staff donned appropriate apparel. A procedure timeout was performed to confirm correct patient, correct extremity, correct procedure, and correct room set-up including presence of all applicable supplies, devices, and drugs. A duplex ultrasound, performed by myself confirmed the location and incompetence of right leg varicose veins and their course marked on the skin together with the dilated tributaries. The extent of treatment of the vein and the associated varicosities was determined through ultrasound mapping. The patient was placed on the operating room table. The limb was prepped. The skin was punctured with a butterfly needle through the skin with the venous access needle and advanced under ultrasound guidance. The target limb was positioned at 45 degrees of elevation in relation to the torso utilizing a foam pad. The Varithena(r) canister was previously activated and the canister was primed and purged as required in the instructions for use. The following injections were made: 5 mL aliquot of Varithena(r) was drawn into a sterile syringe. Injection into a 5 mm varicose vein distal medial lower leg, branch of the great saphenous vein inserting at the level of the knee. 5 mL aliquot of Varithena(r) was drawn into a sterile syringe. Injection into the distal patent right great saphenous vein which measured up to 5 mm. The great saphenous vein was occluded at the level of the knee 3 mL aliquot of Varithena(r) was drawn into a sterile syringe. Injection into a 4 mm varicose vein distal medial thigh, tributary of the great saphenous vein inserting at the level of the upper thigh Varithena(r) was slowly administered at 0.5-1.0 cc/second with close observation by ultrasound of its course in the GSV and associated tributaries. A total volume of 13 mL of Varithena(r) was used. During administration of Varithena(r), the patient was asked to dorsiflex the ankle to limit flow of Varithena(r) into perforating veins. Once appropriate spasm had been confirmed in the treated veins, the vascular catheter was removed from the leg and light pressure was applied over the puncture site for hemostasis The common femoral and deep superficial veins were then evaluated for flow and compressibility prior to dressing placement. The lower extremity was kept elevated at 45 degrees above the horizontal and cording material was applied over the saphenous segments and tributaries to allow for eccentric compression over the target vessels including the targeted saphenous vein(s). A multilayer dressing was applied consisting of foam pads, coban and thigh-high 20-30 mm Hg compression elastic support hose were placed on the patient. The leg was lowered only after compression had been applied and the patient was immediately ambulatory. The patient ambulated 10 minutes under supervision and was without apparent concerns at time of release Post-care instructions include advising patient to keep post-treatment bandages in place and dry for 48 hours, av (more content not included)... Normal [facility] VC CONSULT FOLLOWUPon 2021 VC CONSULT FOLLOWUP Patient: AMBROSE LOCKE Exam Date: 03/25/2022 : 1955 Gender:M Ordering : DR RACHEAL GRAVES M.D. Admission #: [id number] Family : Order #: [id number] CLICK HERE TO VIEW EXAM RADIOLOGY REPORT PROCEDURE: VEIN CENTER CONSULTATION FOLLOWUP VEIN CENTER - OFFICE VISIT FOLLOW UP COMPARISON: VC CONSULT FOLLOWUP, 02/18/2022. PROGRESS NOTES: The patient reports no postprocedural complications. There has been interval reduction in varicosities. The patient has followed our recommendations to walk 20-30 minutes once or twice per day since the procedure. Physical exam demonstrates no evidence of infection or significant erythema. Decreased in varicosities of the right leg. Persistent varicosity at are identified along the legs bilaterally. Review of the ultrasound performed the same day demonstrates occlusive thrombus extending throughout the treated vein, see separate report, consistent with a successful ablation. No thrombus extending into or beyond the saphenofemoral junction. The patient expressed a desire to proceed with treatment of incompetent branch saphenous varicosities. The patient was informed that treatment was a process and would require several procedures/sessions. IMPRESSION: 1. Successful ablation of the right great saphenous vein 2. Persistent incompetent branch saphenous varicose veins and lower extremity symptoms PLAN: 1. Microfoam chemical ablation of remaining incompetent branch saphenous varicosities of right and left legs. Nurse notes, history and physical were reviewed and confirmed, see attached forms. The nurse was present throughout the physical exam and consultation Dictated by: Elin Kenny M.D. on 03/25/2022 at 08:39 Approved by: Elin Kenny M.D. on 03/25/2022 at 08:41 Normal [facility] VC EXT VENOUS RT LIMITEDon 0 03-25-2022 VC EXT VENOUS RT LIMITED Patient: CARLOS LOCKE Exam Date: 03/25/2022 : 1955 Gender:M Ordering : DR RACHEAL GRAVES M.D. Admission #: [id number] Family : Order #: [id number] CLICK HERE TO VIEW EXAM RADIOLOGY REPORT PROCEDURE: VEIN CENTER EXTREMITY VENOUS RIGHT LIMITED COMPARISON: None. INDICATIONS: Phlebitis of superficial veins of lower extremity I80.01 TECHNIQUE: Lower extremity duncan scale and Duplex Doppler evaluation of the deep venous system from the inguinal ligament through the calf veins. FINDINGS: REGION: Right lower extremity. THROMBI: Negative for DVT. Heat induced thrombus seen arising 1.1 cm from the SFJ. The heat induced thrombus extends from groin to prox calf. Right GSV is patent at mid calf below the level of insertion. COMPRESSIBILITY: Non-compressible segments. FLOW: Areas of no flow. OTHER: CONCLUSION: 1. Successful post ablation occlusion of right great saphenous vein. Dictated by: Elin Kenny M.D. on 03/25/2022 at 08:37 Approved by: Elin Kenny M.D. on 03/25/2022 at 08:39 Normal [facility] VC ENDOVENOUS ABL 1ST V RTon 03-19-2022 VC ENDOVENOUS ABL 1ST V RT Patient: CARLOS LOCKE Exam Date: 03/19/2022 : 1955 Gender:M Ordering : DR RACHEAL GRAVES M.D. Admission #: [id number] Family : Order #: [id number] CLICK HERE TO VIEW EXAM RADIOLOGY REPORT PROCEDURE: VEIN CENTER ENDOVENOUS ABLATION FIRST VEIN RIGHT GREAT SAPHENOUS VEIN COMPARISON: None. INDICATIONS: Pain co-occurrent and due to varicose veins of bilateral legs I83.813 OPERATIVE REPORT: The risks and benefits of the procedure had been previously discussed, and were rediscussed at length. Informed written consent was obtained by and Manjit Cortés assisted. Time out procedure was performed. The right lower extremity was prepared and draped in the usual sterile fashion to allow knee flexion in the sterile field. Duplex ultrasound probe was draped in a sterile cover, sterile transmission gel was used. Venous mapping was performed with the areas of dilation and large tributaries marked. The total length was 59 cm from the entry mid to lower calf to 3 cm below the saphenofemoral junction. The vein beneath the entry site was not amenable to laser ablation due to size and tortuosity. The diameter of the great saphenous vein ranged from 4-9 mm. A 30 gauge needle and 1% buffered lidocaine was used to anesthetize the entry site. A 4 mm incision was made with a scalpel and the saphenous vein was entered percutaneously under direct ultrasound guidance with a micropuncture set, a single stick was successful in gaining access. A micro-guide wire was inserted and the needle removed. A micro-set including a dilator was inserted over the microwire and the needle and dilator were removed. A 0.018 guide wire was inserted through the micro-set and threaded through the saphenous vein to the saphenofemoral junction. The dilator was removed and an introducer sheath was inserted over the wire until the end of the sheath entered the saphenofemoral junction. The dilator and wire were removed and the 600 micron fiber was introduced and placed and positioned so that it extended beyond the sheath and was 3 cm peripheral to the saphenofemoral femoral junction. Final position of the fiber was determined by ultrasound guidance and duplex imaging. Tumescent anesthetic was delivered by ultrasound guidance. 350 cc of fluid was delivered along the entire course of the saphenous vein. The solution consisted of 500 cc of normal saline with 20mL of 1% lidocaine and 10 mL of sodium bicarbonate. A final positioning check was made. The energy source was turned on by means of the foot pedal and the fiber and sheath were withdrawn. The total number of Joules delivered was 2793. The laser was active for 349 seconds under continuous pulse, average laser use of 8 J. Laser start time 8:48 a.m. March 19, 2022. Laser stop time 8:54 a.m. March 19, 2022. A duplex ultrasound revealed compressibility and flow at the saphenofemoral junction immediately after the procedure. Hemostasis at the access site was achieved. The skin incision of the saphenous vein was closed with a 4 x 4. A compression stocking was applied. Postop instructions were given. A follow up appointment was recommended and scheduled. The patient tolerated the procedure well and was discharged in good condition. CONCLUSION: 1. Technically successful endovenous laser ablation of the great saphenous vein. Dictated by: Racheal Graves MD on 03/19/2022 at 08:55 Approved by: Racheal Graves MD on 03/19/2022 at 08:58 [facility] VC CONSULT FOLLOWUPon 2021 VC CONSULT FOLLOWUP Patient: AMBROSE LOCKE Exam Date: 02/18/2022 : 1955 Gender:M Ordering : DR RACHEAL GRAVES M.D. Admission #: [id number] Family : Order #: [id number] CLICK HERE TO VIEW EXAM RADIOLOGY REPORT PROCEDURE: VEIN CENTER CONSULTATION FOLLOWUP VEIN CENTER - OFFICE VISIT FOLLOW UP COMPARISON: VC CONSULT FOLLOWUP, 02/06/2022. PROGRESS NOTES: The patient reports no significant pain or discomfort following micro foam chemical ablation of left leg varicose veins. The patient has worn his compression stocking. The patient did not require oral analgesics. The patient has tried to follow our recommendations to walk 20-30 minutes once or twice per day since the procedure. The patient estimates the improvement in his initial presenting symptoms to be dramatically improved estimated to be 80-90% improvement. The patient has mild discomfort of the right leg but did not want to proceed with any procedures at this time. If the patient's symptoms increase on the right relative to the left as the left heals, the patient was encouraged to return for additional treatments, otherwise I suggested a 12-24 months follow-up. Continued use of compression stockings was discussed to slow the disease process. Physical exam demonstrates no areas of erythema or warmth in the left leg to suggest cellulitis or thrombophlebitis. No areas of active ulceration. Few scattered thrombosed varicose veins can be palpated. Review of the ultrasound performed the same day demonstrates occlusive thrombus extending throughout the treated left leg varicose veins with no deep vein thrombus. IMPRESSION: 1. Successful ablation of left leg incompetent varicose veins 2. Persistent incompetent right great and small saphenous veins and associated incompetent branch saphenous tributaries PLAN: Follow-up as needed Nurse notes, history and physical were reviewed and confirmed, see attached forms. The nurse was present throughout the physical exam and consultation Dictated by: Racheal Graves MD on 02/18/2022 at 09:42 Approved by: Racheal Graves MD on 02/18/2022 at 09:45 Normal [facility] EXT VENOUS LT LIMITEDon 0 02-18-2022 VC EXT VENOUS LT LIMITED Patient: CARLOS LOCKE Exam Date: 02/18/2022 : 1955 Gender:M Ordering : DR RACHEAL GRAVES M.D. Admission #: [id number] Family : Order #: [id number] CLICK HERE TO VIEW EXAM RADIOLOGY REPORT PROCEDURE: VEIN CENTER EXTREMITY VENOUS LEFT LIMITED COMPARISON: VC EXT VENOUS LT LIMITED, 02/06/2022. INDICATIONS: Phlebitis and thrombophlebitis of superficial veins of left lower extremity I80.02 TECHNIQUE: Lower extremity duncan scale and Duplex Doppler evaluation of the deep venous system from the inguinal ligament through the calf veins. FINDINGS: REGION: Left lower extremity. THROMBI: Negative for DVT. Chemically-induced thrombus in varicose vein medial knee to mid thigh. COMPRESSIBILITY: Noncompressibility corresponding to thrombus FLOW: Absent flow corresponding to thrombus OTHER: Patent varicose veins remain off of SSV and chief steward/stewardess mid posterior calf. *Exam performed in accordance with [facility] practice guidelines- Peripheral venous ultrasound, October 07, 2009. CONCLUSION: Post ablation occlusion of left leg varicose veins Dictated by: Racheal Graves MD on 02/18/2022 at 09:32 Approved by: Racheal Graves MD on 02/18/2022 at 09:36 Normal [facility] VC INJ FOAM SCLERO W US MLTI on 02-13-2022 VC INJ FOAM SCLERO W US MLTI Patient: CARLOS LOCKE Exam Date: 02/13/2022 : 1955 Gender:M Ordering : DR RACHEAL GRAVES M.D. Admission #: [id number] Family : Order #: [id number] CLICK HERE TO VIEW EXAM RADIOLOGY REPORT PROCEDURE: VEIN CENTER INJECTION FOAM SCLEROSING SOLUTION WITH ULTRASOUND MULTIPLE VEINS COMPARISON: None. Pre-operative Diagnosis: CEAP class C3 venous insufficiency with pain, tenderness, edema and incompetent branch saphenous vein, chronic venous insufficiency left leg secondary to venous incompetence Post-operative Diagnosis: CEAP class C3 venous insufficiency with pain, tenderness, edema and incompetent branch saphenous vein, chronic venous insufficiency left leg secondary to venous incompetence Procedure Performed: 1. Ultrasound-guided microfoam chemical ablation with Varithena(r) 2. Intraoperative ultrasound guidance Physician: Elin Kenny M.D. Anesthesia: None. Indications for Procedure: 66 year old male. Symptoms including lower extremity pain, neuropathy, bulging veins, muscle cramping for many years despite conservative medical therapy including medical compression stockings, exercise and analgesics. Prior procedures include: Endovenous laser ablation. Multiple incompetent varicosities of the left leg. Duplex scan showed reflux and enlarged diameters up to 5 mm. The patient has undergone informed consent including management options where the complications of infection, bleeding, pain, and skin injury were discussed. Particular attention was spent discussing thrombus extension and deep vein thrombosis as well as the possibility of pulmonary embolus and treatment with oral or injectable blood thinners. Procedure: The patient walked to the procedure room. All applicable staff donned appropriate apparel. A procedure timeout was performed to confirm correct patient, correct extremity, correct procedure, and correct room set-up including presence of all applicable supplies, devices, and drugs. A duplex ultrasound, performed by myself confirmed the location and incompetence of branch saphenous varicosities and their course was marked on the skin together with the dilated tributaries. The extent of treatment of the veins and the associated varicosities was determined through ultrasound mapping. The skin was prepped and then punctured with a butterfly needle and advanced under ultrasound guidance. The Varithena(r) canister was activated and the canister was primed and purged as required in the instructions for use. Varithena(r) was drawn into a sterile syringe. Varithena(r) was slowly administered at 0.5-1.0 cc/second with close observation by ultrasound of its course in the vessels. Total volume utilized was: 6 mL within a 5 mm incompetent branch saphenous varicosity of the left mid medial upper leg. Following administration of Varithena(r), the leg was elevated and the patient was asked to repeatedly dorsiflex the ankle to limit flow of Varithena(r) into perforating veins. Once appropriate spasm had been confirmed in the treated veins, the vascular catheter was removed from the leg and light pressure was applied over the puncture site for hemostasis The common femoral and deep superficial veins were then evaluated for flow and compressibility prior to dressing placement. The lower extremity was kept elevated at 45 degrees above the horizontal and cording material was applied over the saphenous segments and tributaries to allow for eccentric compression over the target vessels including the targeted saphenous vein(s). A multilayer dressing was applied consisting of foam pads, coban and thigh-high 20-30 mm Hg compression elastic support hose were placed on the patient. The leg was lowered only after compression had been applied and the patient was immediately ambulatory. The patient ambulated 10 minutes under supervision and was without apparent concerns at time of release Post-care instructions include advising patient to keep post-treatment bandages in place and dry for 48 hours, avoid extended periods of inactivity, avoid heavy exercise for one week, wear compression stockings on the treated leg continuously for two weeks, to walk daily for 10 minutes over the next month. The patient was instructed to take an anti-inflammatory medicine as needed and to follow up for color duplex scan of the Saphenous veins, the treated branch saphenous varicosities, the adjacent deep veins, and additional treatment within 7 days. PERSONNEL: Manjit Cortés R.N. Dictated by: Elin Kenny M.D. on 02/13/2022 at 10:10 Approved by: Elin Kenny M.D. on 02/13/2022 at 10:15 Normal [facility] VC CONSULT FOLLOWUPon 2021 VC CONSULT FOLLOWUP Patient: AMBROSE LOCKERusty Exam Date: 02/06/2022 : 1955 Gender:M Ordering : DR RACHEAL GRAVES M.D. Admission #: [id number] Family : Order #: [id number] CLICK HERE TO VIEW EXAM RADIOLOGY REPORT PROCEDURE: VEIN CENTER CONSULTATION FOLLOWUP VEIN CENTER - OFFICE VISIT FOLLOW UP COMPARISON: None. PROGRESS NOTES: The patient reports mild twinges and pulling in area of treated left GSV. There has been interval reduction in varicosities. The patient has followed our recommendations to walk 20-30 minutes once or twice per day since the procedure. Physical exam demonstrates no erythema, swelling, or evidence of infection at site of insertion. Mild bruising/skin irritation and upper medial left thigh from compression stockings. Persistent superficial varicosities are identified along the left. Review of the ultrasound performed the same day demonstrates occlusive thrombus extending throughout the treated vein, see separate report, consistent with a successful ablation. No thrombus extending into or beyond the saphenofemoral junction. The patient expressed a desire to proceed with treatment of branch saphenous varicosities of left leg. The patient was informed that treatment was a process and would require several procedures/sessions. IMPRESSION: 1. Successful ablation of the left great saphenous vein 2. Persistent incompetent branch saphenous veins and lower extremity symptoms PLAN: 1. Microfoam chemical ablation of left leg incompetent branch saphenous varicosities. 2. Re-evaluation of right GSV for endovenous laser therapy. Nurse notes, history and physical were reviewed and confirmed, see attached forms. The nurse was present throughout the physical exam and consultation Dictated by: Elin Kenny M.D. on 02/06/2022 at 09:49 Approved by: Elin Kenny M.D. on 02/06/2022 at 09:53 Normal [facility] VC EXT VENOUS LT LIMITEDon 0 02-06-2022 VC EXT VENOUS LT LIMITED Patient: CARLOS LOCKE Exam Date: 02/06/2022 : 1955 Gender:M Ordering : DR RACHEAL GRAVES M.D. Admission #: [id number] Family : Order #: [id number] CLICK HERE TO VIEW EXAM RADIOLOGY REPORT PROCEDURE: VEIN CENTER EXTREMITY VENOUS LEFT LIMITED COMPARISON: VC VENOUS REFLUX MARIE LMT, 01/21/2022. INDICATIONS: Phlebitis and thrombophlebitis of superficial veins of left lower extremity I80.02 TECHNIQUE: Lower extremity duncan scale and Duplex Doppler evaluation of the deep venous system from the inguinal ligament through the calf veins. FINDINGS: REGION: Left lower extremity. THROMBI: Negative for DVT. Heat-induced thrombus in the left GSV 2.3cm and extends to the distal lower leg at insertion. COMPRESSIBILITY: Non-compressible segments. FLOW: Areas of no flow. OTHER: CONCLUSION: 1. SUCCESSFUL POST ABLATION OCCLUSION OF LEFT GREAT SAPHENOUS VEIN. Dictated by: Elin Kenny M.D. on 02/06/2022 at 09:26 Approved by: Elin Kenny M.D. on 02/06/2022 at 09:49 Normal [facility] GLYCOHEMOGLOBIN A1Con 2021 ADA RECOMMENDATION SEE BELOW Normal [facility] Comment on above: Result Comment: ADA RECOMMENDED LIMIT 4.0 - 6.0 ADA THERAPEUTIC TARGET < 7.0 ACTION SUGGESTED > 7.0 Performed By: #### A 1C #### [facility] [address] [place] [address] Dr. Juliet García Glucose [Mass/Vol] 108 mg/dL Normal [facility] Comment on above: Performed By: #### A 1C #### [facility] [address] [address] [address] Juliet García HbA1c (Bld) [Mass fraction] 5.4 % Normal 4.5-6.2 [facility] Comment on above: Performed By: #### A 1C #### [facility] [address] [address] [address] Juliet García PROF 14(COMP METB)on 022 Albumin [Mass/Vol] 4.0 g/dL Normal 3.4-5.0 [facility] Comment on above: Performed By: #### C MP ####[facility] [address] [address]DrRusty García Albumin/Globulin [Mass ratio] 1.2 {ratio} Normal [facility] Comment on above: Performed By: #### C MP ####[facility] [address] [address]DrRusty García ALP [Catalytic activity/Vol] 89 U/L Normal 46-116 [facility] Comment on above: Performed By: #### C MP ####[facility] [address] [address]DrRusty García ALT [Catalytic activity/Vol] 81 U/L Critically high 16 -63 [facility] Comment on above: Performed By: #### C MP ####[facility] [address] [address]DrRusty García Anion gap [Moles/Vol] 13.6 mmol/L Normal [facility] Comment on above: Performed By: #### C MP ####[facility] [address] [address]DrRusty García AST [Catalytic activity/Vol] 32 U/L Normal 15-37 [facility] Comment on above: Performed By: #### C MP ####[facility] [address] [address]DrRusty García Bilirubin [Mass/Vol] 0.5 mg/dL Normal 0.2-1.0 [facility] Comment on above: Performed By: #### C MP ####[facility] [address] [place], [place] [address]Dr. Dianajavier Ricky Calcium [Mass/Vol] 8.9 mg/dL Normal 8.5-10.1 [facility] Comment on above: Performed By: #### C MP ####[facility] [address] [place], [place] [address]Dr. Juliet García Chloride [Moles/Vol] 106 mmol/L Normal 98-107 [facility] Comment on above: Performed By: #### C MP ####[facility] [address] [place], [place] [address]Dr. Juliet García CO2 [Moles/Vol] 27.1 mmol/L Normal 21.0-32.[address] [facility] Comment on above: Performed By: #### C MP ####[facility] [address] [place], [place] [address]Dr. Juliet García Creatinine [Mass/Vol] 1.46 mg/dL Critically high 0.70-1.30 [facility] Comment on above: Performed By: #### C MP ####[facility] [address] [place], [place] [address]Dr. Juliet García EGFR-AF FILIPINO 59 mL/min/1.73m2 Critically low >=60 [facility] Comment on above: Performed By: #### C MP ####[facility] [address] [place], [place] [address]Dr. Juliet García EGFR-NON AF FILIPINO 48 mL/min/1.73m2 Critically low >=60 [facility] Comment on above: Performed By: #### C MP ####[facility] [address] [place], [place] [address]Dr. Juliet García Globulin (S) [Mass/Vol] 3.4 g/dL Normal [facility] Comment on above: Performed By: #### C MP ####[facility] [address] [place], [place] [address]Dr. Juliet García Glucose [Mass/Vol] 93 mg/dL Normal 74-106 [facility] Comment on above: Performed By: #### C MP ####[facility] [address] [address]Dr. Juliet Ricky Potassium [Moles/Vol] 4.7 mmol/L Normal 3.5-5.1 [facility] Comment on above: Performed By: #### C MP ####[facility] [address] [address]Dr. Juliet Ricky Protein [Mass/Vol] 7.4 g/dL Normal 6.4-8.2 [facility] Comment on above: Performed By: #### C MP ####[facility] [address] [address]Dr. Juliet Ricky Sodium [Moles/Vol] 142 mmol/L Normal 136-145 [facility] Comment on above: Performed By: #### C MP ####[facility] [address] [address]Dr. Juliet Ricky Urea nitrogen [Mass/Vol] 25.0 mg/dL Critically high 7.0-18 .0 [facility] Comment on above: Performed By: #### C MP ####[facility] [address] [address]Dr. Juliet Ricky Urea nitrogen/Creatinine [Mass ratio] 17.1 mg/mg Normal [facility] Comment on above: Performed By: #### C MP ####[facility] [address] [place], [place] [address]Dr. Juliet Ricky VC ENDOVENOUS ABL 1ST V LTon 01-30-2022 VC ENDOVENOUS ABL 1ST V LT Patient: CARLOS LOCKE Exam Date: 01/30/2022 : 1955 Gender:M Ordering : DR RACHEAL GRAVES M.D. Admission #: [id number] Family : Order #: [id number] CLICK HERE TO VIEW EXAM RADIOLOGY REPORT PROCEDURE: VEIN CENTER ENDOVENOUS ABLATION FIRST VEIN LEFT COMPARISON: None. INDICATIONS: Pain co-occurrent and due to varicose veins of bilateral legs I83.813 OPERATIVE REPORT: The risks and benefits of the procedure had been previously discussed, and were rediscussed at length. Informed written consent was obtained by and Manjit navas. Time out procedure was performed. The left lower extremity was prepared and draped in the usual sterile fashion to allow knee flexion in the sterile field. Duplex ultrasound probe was draped in a sterile cover, sterile transmission gel was used. Venous mapping was performed with the areas of dilation and large tributaries marked. The total length was 66 cm from the entry 4 cm above the medial malleolus to 3 cm below the saphenofemoral junction. The diameter of the greater saphenous vein ranged from 8.5 mm. A 30 gauge needle and 1% buffered lidocaine was used to anesthetize the entry site. A 4 mm incision was made with a scalpel and the saphenous vein was entered percutaneously under direct ultrasound guidance with a micropuncture set, a single stick was successful in gaining access. A micro-guide wire was inserted and the needle removed. A micro-set including a dilator was inserted over the microwire and the needle and dilator were removed. A 0.018 guide wire was inserted through the micro-set and threaded through the saphenous vein to the saphenofemoral junction. The dilator was removed and an introducer sheath was inserted over the wire until the end of the sheath entered the saphenofemoral junction. The dilator and wire were removed and the 600 micron fiber was introduced and placed and positioned so that it extended beyond the sheath and was 3 cm peripheral to the saphenofemoral femoral junction. Final position of the fiber was determined by ultrasound guidance and duplex imaging. Tumescent anesthetic was delivered by ultrasound guidance. Three hundred fifty cc of fluid was delivered along the entire course of the saphenous vein. The solution consisted of 500 cc of normal saline with 20mL of 1% lidocaine and 10 mL of sodium bicarbonate. A final positioning check was made. The energy source was turned on by means of the foot pedal and the fiber and sheath were withdrawn. The total number of Joules delivered was 3312. The laser was active for 114 seconds under continuous pulse, average laser use of 8 J. Laser start time 11 o'clock January 30, 2022. Laser stop time 11:08 a.m. January 30, 2022. A duplex ultrasound revealed compressibility and flow at the saphenofemoral junction immediately after the procedure. Hemostasis at the access site was achieved. The skin incision of the saphenous vein was closed with a 4 x 4. A compression stocking was applied. Postop instructions were given. A follow up appointment was recommended and scheduled. The patient tolerated the procedure well and was discharged in good condition. CONCLUSION: 1. Technically successful endovenous laser ablation of the left great saphenous vein. Dictated by: Elin Kenny M.D. on 01/30/2022 at 11:59 Approved by: Elin Kenny M.D. on 01/30/2022 at 12:00 Normal [facility] POINT OF CARE GLUCOSEon 01-11 Glucose [Mass/Vol] 84 mg/dL Normal 74-106 [facility] Comment on above: Performed By: #### P OCGLUC #### [facility] [address] [address] [address] Juliet García VC COMP CONSULTATIONon 01-21 VC COMP CONSULTATION Patient: YOSVANY LOCKERusty Exam Date: 01/21/2022 : 1955 Gender:M Ordering : DR RACHEAL GRAVES M.D. Admission #: [id number] Family : Order #: [id number] CLICK HERE TO VIEW EXAM RADIOLOGY REPORT PROCEDURE: VC VEIN CENTER CONSULTATION VEIN CENTER - OFFICE VISIT INITIAL COMPARISON: None. PROGRESS NOTES: 66-year-old male who presents with a 6 year history of lower extremity pain swelling and neuropathy. The patient complains of bulging veins with muscle cramps. The patient rates the pain as an 8 on a scale of 1-10. Patient's symptoms have significantly worsened in the last year. The patient's daily activities are affected requiring intermittent rest, leg elevation and over the counter Tylenol. The patient has worn compression stockings for years. The patient is retired from [employer] after working 42 years. The patient denies any signs and symptoms to suggest arterial ischemia. The patient describes a family history significant for stroke in his father. Varicose veins in multiple family members. The patient drinks alcohol occasionally. Never smoked. No illicit or prescription drug abuse. Current medical conditions are significant for peripheral neuropathy, type 2 diabetes, hypertension, obesity, pulmonary embolism following COVID infection in 2020. The patient had a percutaneous liver biopsy with indeterminate result, he could not provide are any additional information, and this was performed [facility]. See separate history and physical for medication list. No prior treatment for varicose or spider veins. Nursing notes were reviewed. After history and physical exam I discussed at length the pathophysiology of venous hypertension and possible treatments, therapies and strategies available. We discussed at length the importance of elevating the lower extremities above the level of the heart, increased physical activity and compression stocking use. We discussed intravenous laser ablation, micro foam chemical ablation and injection sclerotherapy. I did inform the patient that his neuropathy was likely related to diabetes. His swelling was likely multifactorial and related to hypertension, diabetes, obesity with venous disease being likely a small component. We discussed alternatives including bilateral thigh-high compression stockings, weight loss, increased exercise as well as treatment of the most disease vein with adequate time to evaluate healing and improvement before treatment of additional venous disease. Ultrasound venous reflux study performed the same day was discussed at length with the patient. The report demonstrates mild to moderate bilateral great saphenous vein, mild right small saphenous vein venous insufficiency with dilatation. Bilateral incompetent branch saphenous tributary/varicose veins. Bilateral incompetent chief steward/stewardess veins. PHYSICAL EXAM: The right leg demonstrates mild scattered varicose, reticular and spider veins. Mild subcutaneous edema of the ankle and foot. Mild hemosiderin staining of the ankle. No active ulceration. The left leg demonstrates mild scattered varicose, reticular and spider veins. Mild subcutaneous edema of the ankle and foot. No active ulceration or hemosiderin staining Both thighs, legs and feet were symmetrically warm to the touch. Good posterior tibial and dorsalis pedis pulses were present bilaterally. IMPRESSION: 1. Bilateral byls-tn-gzgzdhlr great saphenous vein and mild right small saphenous vein venous insufficiency with associated dilatation 2. Bilateral incompetent lower extremity saphenous tributaries/varicose veins 3. Mild bilateral lower extremity subcutaneous edema 4. No flow significant arterial disease 5. CEAP: C3, Ep, Asp, Pr PLAN: 1. Endovenous laser ablation of the left great saphenous vein 2. Possible treatment of the right great saphenous vein and branch saphenous incompetent tributaries if the patient has significant improvement from treatment of the left 3. Long-term use of bilateral thigh-high 20-30 mm compression stockings 4. Elevated legs , weight loss and increased physical activity for symptomatic relief Nurse notes, history and physical were reviewed and confirmed, see attached forms. The nurse was present throughout the physical exam and consultation Dictated by: Racheal Graves MD on 01/21/2022 at 11:30 Approved by: Racheal Graves MD on 01/21/2022 at 11:46 Normal [facility] l VC VENOUS REFLUX MARIE LMTon 0 01-21-2022 VC VENOUS REFLUX MARIE LMT Patient: CARLOS LOCKE Exam Date: 01/21/2022 : 1955 Gender:M Ordering : DR RACHEAL GRAVES M.D. Admission #: [id number] Family : DR NATHALY BOONE . Order #: [id number] CLICK HERE TO VIEW EXAM RADIOLOGY REPORT PROCEDURE: VEIN CENTER ULTRASOUND VENOUS REFLUX BILATERAL LIMTED COMPARISON: None. INDICATIONS: Pain co-occurrent and due to varicose veins of bilateral legs I83.813 TECHNIQUE: Duplex imaging of the lower extremity to assess the deep and superficial venous system for the presence of deep or superficial venous incompetence and to document the location and severity of disease. The study includes evaluation of the great saphenous vein (GSV), anterior accessory saphenous vein (AASV) and small saphenous vein (SSV). Patient scanned in reverse Trendelenburg and standing. FINDINGS: RIGHT LOWER EXTREMITY: Saphenofemoral Junction Reflux: Yes 6.4mm 1.8 sec GSV: Diam (mm) Reflux/ Time (sec) Proximal Thigh 7.7 Yes 1.0 Mid Thigh 6.7 Yes 0.4 Distal Thigh 5.4 No Prox Calf 4.2 Yes 1.2 Mid Calf 3.6 Yes 0.7 Saphenopopliteal Junction Reflux: 5.6mm Yes 0.5 SSV: Proximal Calf 5.5 Yes 0.6 Mid Calf 5.5 Yes 1.4 AASV: Proximal Thigh 3.0 No Mid Thigh 2.6 Yes 0.9 Distal Thigh Thrombi: No acute or chronic thrombus. Compressibility: Normal. Flow: Mild deep reflux. Preforator: Prox calf 4.1mm, 0.5s reflux. Post/prox calf 3.5mm, 1.6s reflux. Tech Note: Medial prox calf varicosity measures 5.3 mm with 0.9s reflux. Med/dist thigh varicose vein measures 3.5 mm with 0.5s reflux. Dist/medial lower leg varicose vein measures 4.3mm with 1.6s reflux. LEFT LOWER EXTREMITY: Saphenofemoral Junction Reflux: Yes 8.1 mm 1.4 sec GSV: Diam (mm) Reflux/Time (sec) Proximal Thigh 8.5 Yes 2.3 Mid Thigh 6.2 Yes 0.9 Distal Thigh 5.2 No Prox Calf 4.9 Yes 0.4 Mid Calf 3.4 Yes 1.1 Saphenopopliteal Junction Relux: 2.7 mm No SSV: Proximal Calf 3.6 Yes 0.4 Mid Calf 4.9 Yes 0.3 AASV: Proximal Thigh 3.3 No Mid Thigh 3.8 Yes 0.4 Distal Thigh Thrombi: No acute or chronic thrombus. Compressibility: Normal. Flow: Mild deep venous reflux. Property Adjuster: Post/prox calf 5.9mm, 0.7s reflux. Prox/med calf 2.1mm, 0.5s reflux. Tech Note: SSV has connection to the GSV. Incompetent varicose vein medial/prox calf measures 4.7 mm with 1.2s reflux. Medial/mid thigh varicose vein measures 4.0 mm with 0.5s reflux. CONCLUSION: 1. Mild to moderate bilateral great saphenous vein venous insufficiency with associated dilatation 2. Mild right small saphenous vein venous insufficiency with associated dilatation 3. Bilateral mild deep vein reflux 4. Mild bilateral incompetent branch saphenous varicose veins Dictated by: Racheal Graves MD on 01/21/2022 at 10:38 Approved by: Racheal Graves MD on 01/21/2022 at 10:40 Normal [facility] POINT OF CARE GLUCOSEon 12-13 Glucose [Mass/Vol] 87 mg/dL Normal 74-106 [facility] Comment on above: Performed By: #### P OCGLUC ####[facility] [address] [place], [place] [address]Hz. Juliet García SURGICAL PATHOLOGYon 021 SURGICAL PATHOLOGY Specimen #: [id number] Submitting Physician: JULIET GARCÍA M.D. FINAL DIAGNOSIS [place], [place]; [id number] (12/07/2020) Liver, mass , biopsy (A1, A2, IHC): - Steatohepatitis with at least bridging fibrosis. - Negative for malignancy. LY/AB 03/16/2021 COMMENT Thank you for allowing us the opportunity to review this case in consultation representing liver biopsy from a 65-year-old male. The patient has history of diabetes, hyperlipidemia, obesity and occasional alcohol use. During his hospital stay for COVID in June, and incidental, liver lesion was identified on chest CT scan. Subsequent CT and MRI of the abdomen were reportedly inconclusive. Histologic sections show multiple cores of hepatic parenchyma with an architecture that is disrupted by bands of fibrosis and focal nodular formation, consistent with at least bridging fibrosis. The portal tracts show mixed inflammatory infiltrate and bile ductular proliferation, with lymphocytes and scattered eosinophils and plasma cells. A neutrophilic infiltrate accompanies the bile ductular proliferation. There is no interface activity. The hepatic lobules show patchy macrovesicular steatosis involving approximately 40% of the parenchymal volume. Accompanying this steatosis, there are scattered degenerating ballooned hepatocytes and Prerna hyaline inclusions. Lobular inflammation is mild and composed of small lymphocytes without acidophil bodies. Cholestasis is not identified. There is no evidence of cytologic atypia/dysplasia. Mitotic activity is not identified. Enclosed CK7 and MOC31 highlight bile ducts and ductular reaction. A recut SUMI demonstrates areas of fibrin and organizing thrombus Overall, we entirely agree with your assessment that the histomorphologic findings are that of at least bridging fibrosis with background steatohepatitis. Given the patients risk factors, the findings are compatible with non-alcoholic fatty liver disease. We see no evidence of malignancy in this biopsy. In light of the clinical concern for a mass lesion, sampling error should be considered. Re-biopsy of the lesion (with background non-lesional 2nd biopsy) is often helpful in categorizing focal lesions. Thank you for sending this case in consultation. Please do not hesitate to contact us at [phone] with questions or if additional follow up information becomes available. This case was reviewed in conjunction with the GI pathology fellow, Apoorva Diallo MD. The following stains were performed at the [facility] in order to further characterize this case: Trichrome, and ERG. The trichrome stain demonstrates bridging fibrosis with areas of early nodule formation. The ERG stain highlights endothelial cells and sinusoidal lining cells and shows no evidence of a vascular neoplasm. Laboratory Developed Test (LDT) Disclaimer: Positive and negative controls stain appropriately. Performance characteristics of immunohistochemical, immunofluorescent and chromogenic in-situ hybridization tests have been determined by [facility]'s [facility] [place] ([facility]) in a manner consistent with CLIA requirements. One or more of these tests have not been cleared or approved by the FDA. [facility] is regulated under CLIA as qualified to perform high-complexity testing. These tests are used for clinical purposes. They should not be regarded as investigational or for research. Nicolasa Cheema M.D. (Electronic Signature) SPECIMEN SUBMITTED A: 12 slides [id number] CLINICAL DATA Mass Date of Report: 03/27/2021 Date of Procedure: 03/16/2021 Date of Receipt: 03/15/2021 Submitted by: JULIET GARCÍA M.D. Location: Diagnostic interpretation performed at [facility], [address] [place] [address]. CLIA Number: [id number] Normal [facility] Reference Lab Comment on above: Performed By: #### S #### See report for performing lab information. Vital Signs Date Time Vital Sign Value Performing Clinician Facility 06-03-2023 09:59-0500 Blood Pressure Location LIZ HERNANDEZ [facility] 06-03-2023 09:59-0500 Diastolic blood pressure 74 mm[Hg] LIZ HERNANDEZ [facility] 06-03-2023 09:59-0500 Heart rate 70 /min LIZ HERNANDEZ [facility] 06-03-2023 09:59-0500 Respiratory rate 16 /min LIZ HERNANDEZ [facility] 06-03-2023 09:59-0500 Systolic blood pressure 138 mm[Hg] LIZ HERNANDEZ [facility] 05-23-2022 09:45-0500 Body height 187.96 cm Alejandra Olexa Other [facility] Other 05-23-2022 09:45-0500 Body mass index (BMI) [Ratio] 40.57 kg/m2 Alejandra Olexa Other [facility] Other 05-23-2022 09:45-0500 Body weight 143.34 kg Alejandra Olexa Other [facility] Other 08-07-2021 14:15-0500 Body height 187.96 cm Alejandra Olexa Other [facility] Other 08-07-2021 14:15-0500 Body mass index (BMI) [Ratio] 40.64 kg/m2 Alejandra Olexa Other [facility] Other 08-07-2021 14:15-0500 Body weight 143.61 kg Alejandra Olexa Other [facility] Other 04-12-2021 10:30-0400 Body height 187.96 cm Racheal Daniels Other [facility] Other 04-12-2021 10:30-0400 Body mass index (BMI) [Ratio] 41.75 kg/m2 Racheal Daniels Other [facility] Other 04-12-2021 10:30-0400 Body weight 147.51 kg Racheal Daniels Other [facility] Other 04-12-2021 10:30-0400 Diastolic blood pressure 71 mm[Hg] Racheal Daniels Other [facility] Other 04-12-2021 10:30-0400 Systolic blood pressure 131 mm[Hg] Racheal Daniels Other [facility] Other Encounters Encounter Date Encounter Type Care Provider Facility Start: 11-04-2023 ambulatory PA-C LIZ HERNANDEZ Facility:[facility] Start: 06-03-2023 End: 06-04-2023 ambulatory PA-C LIZ HERNANDEZ Facility:[facility] Start: 06-03-2023 End: 06-03-2023 Patient encounter procedure LIZ HERNANDEZ [facility] Start: 01-06-2023 End: 01-07-2023 ambulatory Donaldo Sparrow MD Facility: [facility] Start: 12-05-2022 End: 12-06-[address] FELISA BERRIOS . Facility:[facility] Start: 12-03-2022 End: 12-04-[address] FELISA BERRIOS . Facility:[facility] Start: 11-29-2022 End: 11-30-2022 ambulatory CRISPIN GONSALEZ . Facility:[facility] Start: 11-12-2022 End: 11-13-[address] FELISA BERRIOS . Facility:[facility] Start: 11-05-2022 End: 11-06-[address] FELISA BERRIOS . Facility:[facility] Start: 10-28-2022 End: 10-29-[address] FELISA BERRIOS . Facility:[facility] Start: 10-23-2022 ambulatory FELISA BERRIOS Facility:[facility]aguir[facility] Start: 10-21-2022 End: 10-21-[address] FELISA BERRIOS . Facility:[facility] Start: 10-18-2022 Encounter for preprocedural cardiovascular examination T[facility]IO [facility] Start: 10-18-2022 Encounter for preprocedural laboratory examination [facility] Start: 10-16-[address] FELISA BERRIOS . Facil ity:[facility] Start: 10-10-2022 End: 10-11-[address] FELISA BERRIOS . Facility:[facility] Start: 10-10-2022 End: 10-11-2022 Encounter for preprocedural cardiovascular examination DR FELISA BERRIOS . Facility:[facility] Start: 09-24-2022 End: 09-25-[address] FELISA BERRIOS . Facility:[facility] Start: 09-20-2022 End: 09-20-[address] FELISA BERRIOS . Facility:[facility] Start: 09-10-2022 End: 09-11-[address] FELISA BERRIOS . Facility:[facility] Start: 09-06-2022 ambulatory FELISA BERRIOS Facility:[facility]aguir[facility] Start: 08-26-2022 End: 08-27-[address] FELISA BERRIOS . Facility:[facility] Start: 08-06-2022 End: 08-07-2022 ambulatory TONIO BELL Facility:[facility] Start: 07-31-2022 End: 07-31-2022 ambulatory [facility] Start: 07-31-2022 End: 08-01-[address] NATHALY BOONE . Facility:[facility] Start: 07-25-2022 End: 07-26-2022 ambulatory RODRIGO JOHNSON . Facility:[facility] Start: 07-24-2022 End: 07-25-2022 ambulatory TONIO BELL Facility:[facility] Start: 07-23-2022 End: 07-24-[address] FELISA BERRIOS . Facility:[facility] Start: 07-22-2022 End: 07-23-[address] FELISA BERRIOS . Facility:[facility] Start: 07-05-[address] NATHALY BOONE . Faci lity:[facility] Start: 06-28-2022 End: 06-29-[address] LOLY BARNARD Facility:[facility] Start: 06-10-2022 End: 06-11-[address] FELISA BERRIOS . Facility:[facility] Start: 05-27-2022 End: 05-28-[address] RACHEAL GRAVES Facility:[facility] Start: 05-23-2022 End: 05-23-2022 ambulatory Alejandra Cain Other [facility] Other Start: 05-23-2022 Office outpatient vi sit 15 minutes Alejandra Cain [facility] Start: 05-03-2022 End: 05-04-[address] FELISA BERRIOS . Facility:[facility] Start: 04-23-2022 End: 04-24-[address] NATHALY BOONE . Facility:[facility] Start: 04-08-2022 End: 04-09-[address] RACHEAL GRAVES Facility:[facility] Start: 04-04-2022 End: 04-05-2022 ambulatory RODRIGO JOHNSON . Facility:[facility] Start: 04-03-2022 End: 04-04-[address] RACHEAL GRAVES Facility:[facility] Start: 03-25-2022 End: 03-26-[address] RACHEAL GRAVES Facility:[facility] Start: 03-19-2022 End: 03-20-[address] RACHEAL GRAVES Facility:[facility] Start: 02-18-2022 End: 02-19-[address] RACHEAL GRAVES Facility:[facility] Start: 02-17-[address] FELISA BERRIOS . Facil ity:[facility] Start: 02-14-2022 End: 02-15-[address] FELISA BERRIOS . Facility:[facility] Start: 02-13-2022 End: 02-14-[address] FELISA BERRIOS . Facility:[facility] Start: 02-06-2022 End: 02-07-[address] FELISA BERRIOS . Facility:[facility] Start: 02-05-2022 End: 02-06-[address] FELISA BERRIOS . Facility:[facility] Start: 01-30-2022 End: 01-31-[address] FELISA BERRIOS . Facility:[facility] Start: 01-22-2022 End: 01-22-[address] FELISA BERRIOS . Facility:[facility] Start: 01-21-2022 End: 01-22-[address] FELISA BERRIOS . Facility:[facility] Start: 01-08-2022 End: 01-08-[address] FELISA BERRIOS . Facility:[facility] Start: 08-07-2021 End: 08-07-2021 ambulatory Alejandra Cain Other [facility] Other Start: 08-07-2021 Office outpatient vi sit 15 minutes Alejandra Cain [facility] [place] Start: 04-12-2021 Office outpatient vi sit 15 minutes Racheal Daniels [facility] Gastroenterology Procedures Date Procedure Procedure Detail Performing Clinician Start: 05-03-[address] RACHEAL GRAVES Comment on above: Performed By: #### P SAD #### [facility] [address] [place] [address] Dr. Juliet García Start: 12-07-2020 CT guided biopsy NOLAFELTON SIMONS DAVID Comment on above: LIVER. NO SEDATION. Arthroscopy of knee LIZ HERNANDEZ Bilateral cataracts (disorder) LIZ HERNANDEZ H/O: vasectomy LIZ ARGUETA Y Titanium (substance) JOSE HERNANDEZ Comment on above: Toe Tonsillectomy LIZ HERNANDEZ Immunizations Immunization Date Immunization Notes Care Provider Fa eitanty 04-20-2023 SARS-CoV-2 mRNA (tozinameran 5y-11y) vaccine LIZ HERNANDEZ [facility] Comment on above: Result Comment: covi d 19 mRNA (cvs) 04-17-2022 influenza virus vacc ine, unspecified formulation LIZ HERNANDEZ [facility] 03-23-2022 SARS-CoV-2 (COVID-19 ) [id number] LIZ HERNANDEZ [facility] 10-23-2021 SARS-CoV-2 mRNA (cyuiymtfpaa-pqne-bphiljp ) vaccine LIZ HERNANDEZ [facility] 05-27-2021 pneumococcal polysaccharide vaccine, 23 valent LIZ HERNANDEZ [facility] 05-06-2021 SARS-CoV-2 (COVID-19 ) mRNA BNT-162b2 vax LIZ HERNANDEZ [facility] Comment on above: Result Comment: 2021: [id number] 04-07-2021 influenza virus vaccine, unspecified formulation LIZ HERNANDEZ [facility] 09-18-2020 SARS-CoV-2 (COVID-19 ) mRNA BNT-162b2 vax LIZ HERNANDEZ [facility] [place] 04-19-2020 influenza virus vaccine, unspecified formulation LIZ DAVID [facility] [place] 04-15-2020 influenza virus vaccine, unspecified formulation LIZ DAVID [facility] 04-20-2018 influenza virus vaccine, unspecified formulation LIZ DAVID [facility] 03-24-2018 influenza virus vaccine, unspecified formulation LIZ DAVID [facility] 05-01-2013 influenza virus vaccine, unspecified formulation LIZ DAVID [facility] Payers Date Payer Category Payer Medicare 2022 Unknown [id number] 2022 Unknown 2021 Medicare [id number] 2019 Unknown [id number] 2. [id number] 1959 Medicare [id number] 1955 Unknown [id number] 2.16.84 0.1.026022.3.579.2.593 1955 Unknown [id number] 2.16.84 0.1.266952.3.579.2.593 1955 Unknown [id number] 2.16.84 0.1.218789.3.579.2.593 1955 Unknown [id number] 2.16.84 0.1.300039.3.579.2.593 1955 Unknown [id number] 2.16.84 0.1.653251.3.579.2.593 1955 Unknown [id number] 2.16.84 0.1.666724.3.579.2.593 1955 Unknown [id number] 2.16.84 0.1.818804.3.579.2.593 1955 Unknown [id number] 2.16.84 0.1.532518.3.579.2.593 1956 Unknown [id number] 2.16.84 0.1.671148.3.579.2.593 1956 Unknown [id number] 2.16.84 0.1.690699.3.579.2.593 1956 Unknown [id number] 2.16.84 0.1.771841.3.579.2.593 1956 Unknown [id number] 2.16.84 0.1.483465.3.579.2.593 1956 Unknown [id number] 2.16.84 0.1.414326.3.579.2.593 1956 Unknown [id number] 2.16.84 0.1.297132.3.579.2.593 1956 Unknown [id number] 2.16.84 0.1.568702.3.579.2.593 1956 Unknown [id number] 2.16.84 0.1.409926.3.579.2.593 1956 Unknown [id number] 2.16.84 0.1.532194.3.579.2.593 1955 Unknown [id number] 2.16.84 0.1.742683.3.579.2.593 1956 Unknown [id number] 2.16.84 0.1.361347.3.579.2.593 1956 Unknown [id number] 2.16.84 0.1.777137.3.579.2.593 1956 Unknown [id number] 2.16.84 0.1.692745.3.579.2.593 1956 Unknown [id number] 2.16.84 0.1.276223.3.579.2.593 1956 Unknown [id number] 2.16.84 0.1.926254.3.579.2.593 1956 Unknown [id number] 2.16.84 0.1.549454.3.579.2.593 1956 Unknown [id number] 2.16.84 0.1.578707.3.579.2.593 1956 Unknown [id number] 2.16.84 0.1.515295.3.579.2.593 1956 Unknown [id number] 2.16.84 0.1.984982.3.579.2.593 1956 Unknown [id number] 2.16.84 0.1.574530.3.579.2.593 1956 Unknown [id number] 2.16.84 0.1.121331.3.579.2.593 1956 Unknown [id number] 2.16.84 0.1.367539.3.579.2.593 1956 Unknown [id number] 2.16.84 0.1.556029.3.579.2.593 1956 Unknown [id number] 2.16.84 0.1.346150.3.579.2.593 1956 Unknown [id number] 2.16.84 0.1.541669.3.579.2.593 1956 Unknown [id number] 2.16.84 0.1.726435.3.579.2.593 1956 Unknown [id number] 2.16.84 0.1.560508.3.579.2.593 1956 Unknown [id number] 2.16.84 0.1.889902.3.579.2.593 1956 Unknown [id number] 2.16.84 0.1.121954.3.579.2.593 1956 Unknown [id number] 2.16.84 0.1.799146.3.579.2.593 1956 Unknown [id number] 2.16.84 0.1.944154.3.579.2.593 1956 Unknown [id number] 2.16.84 0.1.788218.3.579.2.593 1956 Unknown [id number] 2.16. 840.1.173381.3.579.2.196 1956 Unknown [id number] 2.16. 840.1.002531.3.579.2.196 1956 Unknown [id number] 2.16.8 40.1.042206.3.579.2.727 1956 Unknown [id number] 2.16.8 40.1.256411.3.579.2.727 1956 Unknown [id number] 2.16.8 40.1.070730.3.579.2.727 1956 Unknown [id number] 2.16.8 40.1.381148.3.579.2.727 Social History Date Type Detail Facility Sex Assigned At [facility] Start: 06-03-2023 Tobacco smoking status Never s moked tobacco (finding) [facility] Tobacco smoking status Never [facility] Functional Status Date Assessment Result Facility 06-03-2023 Functional Status N/A [facility] Clinical Notes 04-12-2021 to 06-03-2023 Note Date & Type Note Facility 06-03-2023 Hospital Discharge instructions Patient Education 06/03/2023 10:23:43 Prostate Cancer Screening Prostate Cancer Screening Prostate cancer screening is testing that is done to check for the presence of prostate cancer in men. The prostate gland is a walnut-sized gland that is located below the bladder and in front of the rectum in males. The function of the prostate is to add fluid to semen during ejaculation. Prostate cancer is one of the most common types of cancer in men. Who should have prostate cancer screening? Screening recommendations vary based on age and other risk factors, as well as between the professional organizations who make the recommendations. In general, screening is recommended if: You are age 50 to 70 and have an average risk for prostate cancer. You should talk with your health care provider about your need for screening and how often screening should be done. Because most prostate cancers are slow growing and will not cause , screening in this age group is generally reserved for men who have a 10- to 15-year life expectancy. You are younger than age 50, and you have these risk factors: ?Having a father, brother, or uncle who has been diagnosed with prostate cancer. The risk is higher if your family member's cancer occurred at an early age or if you have multiple family members with prostate cancer at an early age. ?Being a male who is Black or is of [place] or sub-Saharan descent. In general, screening is not recommended if: You are younger than age 40. You are between the ages of 40 and 49 and you have no risk factors. You are 70 years of age or older. At this age, the risks that screening can cause are greater than the benefits that it may provide. If you are at high risk for prostate cancer, your health care provider may recommend that you have screenings more often or that you start screening at a younger age. How is screening for prostate cancer done? The recommended prostate cancer screening test is a blood test called the prostate-specific antigen (PSA) test. PSA is a protein that is made in the prostate. As you age, your prostate naturally produces more PSA. Abnormally high PSA levels may be caused by: Prostate cancer. An enlarged prostate that is not caused by cancer (benign prostatic hyperplasia, or BPH). This condition is very common in older men. A prostate gland infection (prostatitis) or urinary tract infection. Certain medicines such as male hormones (like testosterone) or other medicines that raise testosterone levels. A rectal exam may be done as part of prostate cancer screening to help provide information about the size of your prostate gland. When a rectal exam is performed, it should be done after the PSA level is drawn to avoid any effect on the results. Depending on the PSA results, you may need more tests, such as: A physical exam to check the size of your prostate gland, if not done as part of screening. Blood and imaging tests. A procedure to remove tissue samples from your prostate gland for testing (biopsy). This is the only way to know for certain if you have prostate cancer. What are the benefits of prostate cancer screening? Screening can help to identify cancer at an early stage, before symptoms start and when the cancer can be treated more easily. There is a small chance that screening may lower your risk of dying from prostate cancer. The chance is small because prostate cancer is a slow-growing cancer, and most men with prostate cancer from a different cause. What are the risks of prostate cancer screening? The main risk of prostate cancer screening is diagnosing and treating prostate cancer that would never have caused any symptoms or problems. This is called overdiagnosisand overtreatment. PSA screening cannot tell you if your PSA is high due to cancer or a different cause. A prostate biopsy is the only procedure to diagnose prostate cancer. Even the results of a biopsy may not tell you if your cancer needs to be treated. Slow-growing prostate cancer may not need any treatment other than monitoring, so diagnosing and treating it may cause unnecessary stress or other side effects. Questions to ask your health care provider When should I start prostate cancer screening? What is my risk for prostate cancer? How often do I need screening? What type of screening tests do I need? How do I get my test results? What do my results mean? Do I need treatment? Where to find more information [employer]: www.cancer.org [employer]: www.auanet.org Contact a health care provider if: You have difficulty urinating. You have pain when you urinate or ejaculate. You have blood in your urine or semen. You have pain in your back or in the area of your prostate. Summary Prostate cancer is a common type of cancer in men. The prostate gland is located below the bladder and in front of the rectum. This gland adds fluid to semen during ejaculation. Prostate cancer screening may identify cancer at an early stage, when the cancer can be treated more easily and is less likely to have spread to other areas of the body. The prostate-specific antigen (PSA) test is the recommended screening test for prostate cancer, but it has associated risks. Discuss the risks and benefits of prostate cancer screening with your health care provider. If you are age 70 or older, the risks that screening can cause are greater than the benefits that it may provide. This information is not intended to replace advice given to you by your health care provider. Make sure you discuss any questions you have with your health care provider. Document Revised: 12/24/2021 Document Reviewed: 12/24/2021 [employer] Patient Education 2022 [employer]. Follow Up Care 05/29/2022 11:47:27 With:DAVID IVAN, LIZ Juarez, URL Address: [address] [place] [address] [id number] When: Unknown Comments:6 mos w/ PSA [facility] 12-03-2022 Note PROCEDURE: XR FOOT L T MIN 3 VIEWS HISTORY: Pain in left foot ; postop first metatarsophalangeal joint fusion COMPARISON: XR foot left 11/12/2022 FINDINGS: BONES:Mechanical fusion of the first metatarsophalangeal joint via dorsal plate and screws; no hardware fracture or loosening. Resection of distal articular surface of the first proximal phalanx. SOFT TISSUES:No visible soft tissue swelling. EFFUSION:None visible. OTHER: Negative. IMPRESSION: 1. Stable surgical changes without evidence of hardware failure. 2. No acute abnormality. Electronically authenticated by: ELIN KENNY Date: 2022-12-03 09:57 [facility] 11-12-2022 Note PROCEDURE: XR FOOT L T MIN 3 VIEWS DATE: 11/12/2022 12:30 PM CDT COMPARISONS: 10/21/2022 and 07/24/2022 CLINICAL INDICATION: Pain in left foot FINDINGS: As on 10/21/2022 there is postop fusion first metatarsal phalangeal joint. The osseous structures of this fused joint are in good position and alignment and are stable. On today's exam there is deformity of the first interphalangeal joint. This was not seen on 07/24/2022. This area is obscured somewhat by casting material on 10/21/2022. The significance of this is unclear. It appears this joint is subluxed somewhat. The first distal phalanx appears to be subluxed 5 mm lateral with respect to the first proximal phalanx on frontal projection. Soft tissue swelling is also noted about this first toe.. IMPRESSION: 1. Stable postoperative changes of the first metatarsal phalangeal joint 2. Evidence of deformity and subluxation of the first interphalangeal joint not seen on 07/24/2022. Correlation with clinical history and physical exam is necessary. It is unclear how this deformity and subluxation is related to the surgery. It may be the cause of pain in this area.. Electronically authenticated by: ZAFAR FERRER Date: 2022-11-12 13:59 [facility] 10-22-2022 Note PROCEDURE: XR FOOT L T MIN 3 VIEWS HISTORY: Pain COMPARISON: XR foot left 10/21/2022 intraoperative images FINDINGS: BONES:Mechanical fusion of the first metatarsophalangeal joint via dorsal plate and screws. Resection of distal articular surface of first proximal phalanx. SOFT TISSUES:Mild dorsal soft tissue swelling. Images were obtained to cast material. EFFUSION:None visible. OTHER: Negative. IMPRESSION: 1. Stable surgical changes without evidence of hardware failure or change in alignment compared to intraoperative images. Electronically authenticated by: ELIN KENNY Date: 2022-10-22 07:48 [facility] 10-22-2022 Note PROCEDURE: XR FOOT L T 2V HISTORY: Pain COMPARISON: XR foot left 10/21/2022 FINDINGS: BONES:Multiple intraoperative spot fluoroscopic images demonstrate mechanical fusion of the first metatarsophalangeal joint and resection of head of first proximal phalanx. IMPRESSION: 1. Surgical changes of left first toe as detailed above. Electronically authenticated by: ELIN KENNY Date: 2022-10-22 07:46 [facility] 07-31-2022 Note Currently stable [facility] 07-31-2022 Note Hypertension is well controlled 114/64 Continue lisinopril 5 mg Recent CR elevated 1.59- his cr typically has been 1.2-1.4 - He has been on antibiotics for Lt foot infection- DFU with wound care. [facility] 07-31-2022 Note Lipid abnormalities are currently well controlled with lipitor 20 mg- LDL currently 58.6 on labs 07/26/2022 Liver function 04/2022 were normal [facility] 07-31-2022 Note [facility] CARDIOLOGY PROGR ESS NOTE HPI: Carlos Locke is a 66 y.o. male here for Hyperlipidemia, Hypertension, and history of PE Patient here for 6 mo follow up history of PE and hyperlipidemia. Had labs in Apr and echo in Jun 2022. Patient denies chest pain, SOB, and increase in LE edema. Doing very well from cardiac standpoint. Was seeing Dr. Graves for his varicose veins. Currently being treated at wound care for LT DFU and is on antibiotics. Review of Systems Cardiovascular: Positive for leg swelling. All other systems reviewed and are negative. Visit Vitals BP 114/64 (BP Location: Right arm, Patient Position: Sitting) Pulse 79 Ht 1.854 m (6' 1 ) Wt (!) 140 kg (308 lb) SpO2 97% BMI 40.64 kg/m??? Smoking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
== END 2023-07-02 08:33 | disposition home or self-care (01) ==
LOC: RAD 08:32
PROVIDERS: PCP Family Medicine; Visit Provider Podiatrist Foot & Ankle Surgery
DX: M20.12 Hallux valgus (acquired), left foot (principal)
CPT/HCPCS: 73630

== ENCOUNTER 2023-07-04 10:05 | Outpatient (OUT) | payer BC, SELFPAY ==
--- NOTE | 2023-07-04 10:08 | CT_ITS ---
[address] [address] Patient Name: CARLOS LOCKE MRN: [id number] date: 1955 Sex: M Assigned Patient Location: CT Current Patient Location: Accession/Order Number: [id number] Exam Date: 07/04/2023 10:18 Report Date: 07/05/2023 01:52 At the request of: TONIO BELL Procedure: CT foot LT wo con EXAMINATION: CT foot LT wo con HISTORY: Hallux Rigidus, Broken Hardware, Non Union COMPARISON: XR foot left 07/02/2023 TECHNIQUE: Multi-planar CT images were created without and/or with IV contrast according to examination type. Dose reduction techniques were achieved by using automated exposure control and/or adjustment of mA and/or kV according to patient size and/or use of iterative reconstruction technique. FINDINGS: BONES: Prior mechanical fusion of the first metatarsophalangeal joint with subsequent fracture of the dorsal plate at the level of the joint. One millimeter step off between the proximal and distal aspect of the plate. No fracture of the screws or appreciable loosening. Moderate degenerative changes of the interphalangeal joint of the first toe. SOFT TISSUES: No visible soft tissue swelling. EFFUSION: None visible. OTHER: Negative. CT/CT foot LT wo con IMPRESSION: 1. Fracture of the dorsal plate placed for fusion of the first metatarsophalangeal joint. No fracture of the screws. Electronically authenticated by: ELIN MCCARTNEY Date: 07/05/2023 01:52
--- OUTSIDE RECORDS SUMMARY | 2023-07-04 10:13 | XMS_ITS | CCD ---
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 Name Role Phone Frances Racheal Unavailable Alejandra Cain Unavailable BENTLEY MACK Attending Unavailable ELY, DR RACHEAL Ayala Admitting Unavailable WEST, DR RACHEAL Ayala Consulting Unavailable WEST, DR RACHEAL Ayala Attending Unavailable BERRIOS ., DR BEKAH Juarez Primary Care Unavailable BIB, DR AKASH Oliva Consulting Unavailable BERRIOS ., DR BEKAH Juarez Primary Care Unavailable BERRIOS ., DR BEKAH Juarez Attending Unavailable BERRIOS ., DR BEKAH Juarez Consulting Unavailable BERRIOS ., DR BEKAH Juarez Admitting Unavailable ELTAHAWLiza, DR SALCIDO Consulting Unavailable BERRIOS ., DR BEKAH Juarez Primary Care Unavailable ELTAJASMYNE, DR SALCIDO Attending Unavailable ELTAJASMYNE, DR SALCIDO Admitting Unavailable BERRIOS ., DR BEKAH Juarez Primary Care Unavailable BERRIOS ., DR BEKAH Juarez Attending Unavailable BERRIOS ., DR BEKAH Juarez Consulting Unavailable BERRIOS ., DR BEKAH Juarez Admitting Unavailable BERRIOS ., DR BEKAH Juarez Attending Unavailable BERRIOS ., DR BEKAH Juarez Consulting Unavailable BERRIOS ., DR BEKAH Juarez Primary Care Unavailable BERRIOS ., DR BEKAH Juarez Admitting Unavailable BIB, DR AKASH Oliva Consulting Unavailable ELY, DR RACHEAL Ayala Admitting Unavailable WEST, DR RACHEAL Ayala Consulting Unavailable BERRIOS ., DR BEKAH Juarez Primary Care Unavailable ELY, DR RACHEAL Ayala Attending Unavailable BERRIOS ., DR BEKAH Juarez Primary Care Unavailable TONIO BELL Admitting Unavailable TONIO BELL Attending Unavailable BERRIOS ., DR BEKAH Juarez Primary Care Unavailable BOONE ., DR NATHAYL Main Consulting Unavailable BOONE ., DR NATHALY Main Attending Unavailable BOONE ., DR NATHALY Main Admitting Unavailable JAZMIN MCGREGOR Consulting Unavailable BOONE ., DR NATHALY Main Consulting Unavailable BOONE ., DR NATHALY Main Admitting Unavailable BERRIOS ., DR BEKAH Juarez Primary Care Unavailable BOONE ., DR NATHALY Main Attending Unavailable JOHNSON ., RODRIGO Consulting Unavailable JOHNSON ., RODRIGO Consulting Unavailable BOONE ., DR NATHALY Main Attending Unavailable BOONE ., DR NATHALY Main Admitting Unavailable BERRIOS ., DR BEKAH Juarez Primary Care Unavailable BOONE ., DR NATHALY Main Attending Unavailable JOHNSON ., RODRIGO Consulting Unavailable BERRIOS ., DR BEKAH Juarez Primary Care Unavailable BOONE ., DR NATHALY Main Admitting Unavailable LAKSHMIPATHY ., NARENDRANATH Admitting Melodie vailable BERRIOS ., DR BEKAH Juarez Primary Care Unavailable LAKSHMIPATHY ., NARENDRANATH Attending Melodie vailable GIEDRAITIS, ANDRIUS Consulting Unavailable HALKER ., NASIM Consulting Unavailable JOHNSON ., RODRIGO Consulting Unavailable BOONE ., DR NATHALY Main Admitting Unavailable BERRIOS ., DR BEKAH Juarez Primary Care Unavailable BOONE ., DR NATHALY Main Attending Unavailable BERRIOS ., DR BEKAH Juarez Primary Care Unavailable BOONE ., DR NATHALY Main Consulting Unavailable BOONE ., DR NATHALY Main Attending Unavailable BOONE ., DR NATHALY Main Admitting Unavailable MAHARAJ, THEE Consulting Unavailable BOONE ., DR NATHALY Main Admitting Unavailable BOONE ., DR NATHALY Main Attending Unavailable BERRIOS ., DR BEKAH Juarez Primary Care Unavailable BERRIOS ., DR BEKAH Juarez Attending Unavailable BERRIOS ., DR BEKAH Juarez Consulting Unavailable BERRIOS ., DR BEKAH Juarez Primary Care Unavailable BERRIOS ., DR BEKAH Juarez Admitting Unavailable BERRIOS ., DR BEKAH Juarez Primary Care Unavailable WEST, DR RACHEAL Ayala Consulting Unavailable GIEDRAITIS, ANDRIUS Attending Unavailable GIEDRAITIS, ANDRIUS Admitting Unavailable GIEDRAITIS, ANDRIUS Consulting Unavailable BERRIOS ., DR BEKAH Juarez Primary Care Unavailable WEST, DR RACHEAL Ayala Consulting Unavailable WEST, DR RACHEAL Ayala Attending Unavailable WEST, DR RACHEAL Ayala Admjulio césar Unavailable ZIEBER, DR AKASH Oliva Consulting Unavailable BERRIOS ., DR BEKAH Juarez Primary Care Unavailable WEST, DR RACHEAL Ayala Consulting Unavailable WEST, DR RACHEAL Ayala Attending Unavailable WEST, DR RACHEAL Ayala Admitting Unavailable WEST, DR RACHEAL Ayala Consulting Unavailable WEST, DR RACHEAL Ayala Admjulio césar Unavailable BERRIOS ., DR BEKAH Juarez Primary Care Unavailable WEST, DR RACHEAL Ayala Attending Unavailable BERRIOS ., DR BEKAH Juarez Primary Care Unavailable WEST, DR RACHEAL Ayala Admitting Unavailable WEST, DR RACHEAL Ayala Consulting Unavailable WEST, DR RACHEAL Ayala Attending Unavailable ZIEBER, DR AKASH Oliva Consulting Unavailable BERRIOS ., DR BEKAH Juarez Primary Care Unavailable HIGHLANDER, PETER D Admitting Unavailable HIGHLANDER, PETER D Attending Unavailable HIGHLANDER, PETER D Attending Unavailable HIGHLANDER, PETER D Admitting Unavailable BERRIOS ., DR BEKAH Juarez Primary Care Unavailable BERRIOS ., DR BEKAH Juarez Primary Care Unavailable HIGHLANDER, PETER D Admitting Unavailable HIGHLANDER, PETER D Attending Unavailable ZIEBER, DR AKASH Oliva Consulting Unavailable HIGHLANDER, PETER D Consulting Unavailable BERRIOS ., DR BEKAH Juarez Primary Care Unavailable HIGHLANDER, PETER D Consulting Unavailable HIGHLANDER, PETER D Admitting Unavailable HIGHLANDER, PETER D Attending Unavailable ZAFAR FERRER Consulting Unavailable BERRIOS ., DR BEKAH Juarez Primary Care Unavailable HIGHLANDER, PETER D Attending Unavailable HIGHLANDER, PETER D Admitting Unavailable BERRIOS ., DR BEKAH Juarez Primary Care Unavailable HIGHLANDER, PETER D Attending Unavailable HIGHLANDER, PETER D Admitting Unavailable BERRIOS ., DR BEKAH Juarez Primary Care Unavailable HIGHLANDER, PETER D Attending Unavailable HIGHLANDER, PETER D Admitting Unavailable HIGHLANDER, PETER D Attending Unavailable HIGHLANDER, PETER D Admitting Unavailable BERRIOS ., DR BEKAH Juarez Primary Care Unavailable ZIEBER, DR AKASH Oliva Consulting Unavailable HIGHLANDER, PETER D Consulting Unavailable BERRIOS ., DR BEKAH Juarez Primary Care Unavailable HIGHLANDER, PETER D Admitting Unavailable HIGHLANDER, PETER D Attending Unavailable ZIEBER, DR AKASH Oliva Consulting Unavailable HIGHLANDER, PETER D Consulting Unavailable NELIDA ., CECY BLACKMON Consulting Unavailable JENNIFER II, ALEJANDRA Consulting Unavailable TYLERYURI Consulting Unavailable TONIO GONZALEZ Consulting Unavailable BERRIOS ., DR BEKAH Juarez Primary Care Unavailable PAY ., DR MARTINEZ Consulting Unavailable PAY ., DR MARTINEZ Attending Unavailable PAY ., DR MARTINEZ Admitting Unavailable BERRIOS ., DR BEKAH Juarez Primary Care Unavailable HIGHLANDER, PETER D Admitting Unavailable HIGHLANDER, PETER D Attending Unavailable BERRIOS ., DR BEKAH Juarez Primary Care Unavailable HIGHLANDER, PETER D Consulting Unavailable HIGHLANDER, PETER D Admitting Unavailable HIGHLANDER, PETER D Attending Unavailable EMILE DAVIDSON Consulting Unavailable BERRIOS ., DR BEKAH Juarez Attending Unavailable BERRIOS ., DR BEKAH Juarez Primary Care Unavailable BERRIOS ., DR BEKAH Juarez Admitting Unavailable BERRIOS ., DR BEKAH Juarez Primary Care Unavailable BERRIOS ., DR BEKAH Juarez Attending Unavailable BERRIOS ., DR BEKAH Juarez Consulting Unavailable BERRIOS ., DR BEKAH Juarez Admitting Unavailable BERRIOS ., DR BEKAH Juarez Primary Care Unavailable BOONE ., DR NATHALY Main Consulting Unavailable BOONE ., DR NATHALY Main Attending Unavailable BOONE ., DR NATHALY Main Admitting Unavailable ALEX .RODRIGO Unavailable WEST, DR RACHEAL Ayala Consulting Unavailable RUBEN ., DR BEKAH Juarez Primary Care Unavailable [facility], DR STEWART Attending Unavailable [facility], DR STEWART Admitting Unavailable [facility], DR STEWART Consulting Unavailable WEST, DR RACHEAL Ayala Admitting Unavailable WEST, DR RACHEAL Ayala Consulting Unavailable WEST, DR RACHEAL Ayala Attending Unavailable RUBEN ., DR BEKAH Juarez Primary Care Unavailable BIB, DR AKASH Oliva Consulting Unavailable RUBEN ., DR BEKAH Juarez Primary Care Unavailable WEST, DR RACHEAL Ayala Admitting Unavailable WEST, DR RACHEAL Ayala Consulting Unavailable WEST, DR RACHEAL Ayala Attending Unavailable KATINAEBRONAK, DR AKASH Oliva Consulting Unavailable WEST, DR RACHEAL Ayala Admitting Unavailable WEST, DR RACHEAL Ayala Consulting Unavailable RUBEN ., DR BEKAH Juarez Primary Care Unavailable WEST, DR RACHEAL Ayala Attending Unavailable BEKAH BERRIOS Primary Care Physician Kyara MCGUIRE, Donaldo Cunningham Attending Unavailable Kyara MCGUIRE, Donaldo Cunningham Attending Unavailable MARZENA HERNANDEZ Attending Unavailab MARZENA Cerna Attending Unavailab BEKAH Ruiz Attending Unavailable BEKAH BERRIOS Attending Unavailable Allergies Allergy Classification Reported Allergen(s) Allergy Type Date of Onset Reaction(s) Facility (3 sources) Acetaminophen / oxyCODONE Drug Allergy Unknown [facility] Other (1 source) Acetaminophen / oxyCODONE; Translations: [OXYCODONE-ACETAM INOPHEN] Drug Allergy 3 [facility] Repository (3 sources) oxyCODONE; Translations: [OXYCODONE] Drug Allergy 3 Hyperactive behavior (finding) [facility] Repository (1 source) Acetaminophen / oxyCODONE Drug Allergy [facility] Repository (1 source) oxyCODONE; Translations: [OxyCODONE Hydrochloride] Drug Allergy [facility] Repository Medications Current Medications Medication Drug Class(es) [...] 20mg/24hrs, # 20 tab(s), Refills(s) 3, Pharmacy: [facility]/pharmacy #[id number], 188, cm, 06/03/23 10:01:00 EST, Height/Length [...] needed, # 2 tab(s), Refills(s) 0, Pharmacy: [facility]/pharmacy #[id number], 185.4, cm, 12/05/20 11:15:00 EDT, Height/Length [...] Resolved: 2 Chronic 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 00TIFF Normal [facility] Lab Reportson 06-06-2023 Lab Reports [id number]#1.00 TIFF Normal [facility] RAD - MISCon 06-04-2023 RAD - MISC [id number]#1.00 TIFF Normal [facility] Screenson 06-04-2023 Screens [id number]#1. 00TIFF Normal [facility] Patient Educationon 06-03-20 Patient Education Oncology Prostate [...] Where to find more information ? The [place] [employer]: www.cancer.org ? [place] [employer]: www.auanet.org Contact a health care [...] adds flu (more content not included)... Normal [facility] Urology Office/Clinic Noteon 06-03-2023 Urology Office/Clinic Note [...] When Contact Information LIZ HERNANDEZ PA-C, URL [address] [place] [address] [phone] Additional Instructions: 6 mos w/ PSA Patient Education Prostate Cancer Screening Documentation recorded by the sariah Burr accurately reflects the services(s) I performed [...] guided bi (more content not included)... Normal [facility] Comment on above: Result Comment: Elec tronically Signed By: LIZ HERNANDEZ PA-C\.br\Date and Time Signed: 06/03/23 11:48 EST\.br\Electronically Co-Signed By: Maru Burr\Rustybr\Date and Time Co-Signed: 06/03/23 10:26 EST Immunization Recordson 04-23 Immunization Records [id number]#1. 00TIFF Normal [facility] Consultation Noteon 04-15-20 Consultation Note [id number]#1.0 0CD:127 Normal [facility] RAD - MISCon 12-24-2022 RAD - MIS [id number]#1.00 CD:127 Normal [facility] XR LSPINE W_OBLS AND FLEX_EX Ton 12-05-2022 [...] by: RACHEAL GRAVES Date: 2022-12-05 09:46 Normal [facility] Consultation Noteon 12-05-19 23 Consultation Note [id number]#1.0 0CD:127 Normal [facility] Operative Reporton Operative Report [id number]#1.0 0CD:127 Normal [facility] CBC AUTO DIFFon 10-21-2022 BASO # 0.1 103/ul Normal 0.0-0.1 [facility] Comment on above: Performed By: #### P OCGLUC #### [facility] [address] [place] [address] Dr. Juliet García Basophils/100 WBC (Bld) 0.7 % Normal 0.2-2.0 [facility] Comment on above: Performed By: #### P OCGLUC #### [facility] [address] [place] [address] Dr. Juliet García EO # 0.4 103/ul Normal 0.0-0.7 [facility] Comment on above: Performed By: #### P OCGLUC #### [facility] [address] [place] [address] Dr. Juliet García Eosinophils/100 WBC (Bld) 5.3 % Normal 0.9-7.0 [facility] Comment on above: Performed By: #### P OCGLUC #### [facility] [address] [place] [address] Dr. Juliet García Erythrocyte distribution width (RBC) [Ratio] 14.0 % Normal 11.0-15.0 [facility] Comment on above: Performed By: #### P OCGLUC #### [facility] [address] [place] [address] Dr. Juliet García Hematocrit (Bld) [Volume fraction] 43.6 % Normal 42.0-54.0 [facility] Comment on above: Performed By: #### P OCGLUC #### [facility] [address] [place] [address] Dr. Juliet García Hemoglobin (Bld) [Mass/Vol] 14.9 g/dL Normal 14.0-18.0 [facility] Comment on above: Performed By: #### P OCGLUC #### [facility] [address] [place] [address] Dr. Juliet García IG # 0.03 10e3/ul Normal 0.00-0.03 [facility] Comment on above: Performed By: #### P OCGLUC #### [facility] [address] [place] [address] Dr. Juliet García IG % 0.4 % Normal 0.0-0.5 [facility] Comment on above: Performed By: #### P OCGLUC #### [facility] [address] [place] [address] Dr. Juliet García LYMPH # 2.0 103/ul Normal 1.2-3.8 [facility] Comment on above: Performed By: #### P OCGLUC #### [facility] [address] [place] [address] Dr. Juliet García Lymphocytes/100 WBC (Bld) 29.3 % Normal 20.5-60.0 [facility] Comment on above: Performed By: #### P OCGLUC #### [facility] [address] [address] [address] Juliet García MANUAL DIFF REQ NO Normal [facility] Comment on above: Performed By: #### P OCGLUC #### [facility] [address] [address] [address] Juliet García MCH (RBC) [Entitic mass] 33.4 pg Normal 25.9-34.0 [facility] Comment on above: Performed By: #### P OCGLUC #### [facility] [address] [address] [address] Juliet García MCHC (RBC) [Mass/Vol] 34.2 g/dL Normal 29.9-35.2 [facility] Comment on above: Performed By: #### P OCGLUC #### [facility] [address] [place] [address] Dr. Juliet García MCV (RBC) [Entitic vol] 97.8 fL Critically high 80.0-94.0 [facility] Comment on above: Performed By: #### P OCGLUC #### [facility] [address] [place] [address] Dr. Juliet García MONO # 0.7 103/ul Normal 0.3-0.8 [facility] Comment on above: Performed By: #### P OCGLUC #### [facility] [address] [place] [address] Dr. Juliet García Monocytes/100 WBC (Bld) 9.9 % Normal 1.7-12.0 [facility] Comment on above: Performed By: #### P OCGLUC #### [facility] [address] [place] [address] Dr. Juliet García NEUT # 3.7 103/ul Normal 1.4-6.5 [facility] Comment on above: Performed By: #### P OCGLUC #### [facility] [address] [place] [address] Dr. Juliet García Neutrophils/100 WBC (Bld) 54.4 % Normal 43.0-75.0 [facility] Comment on above: Performed By: #### P OCGLUC #### [facility] [address] [address] [address] Juliet García Platelet mean volume (Bld) [Entitic vol] 9.0 fL Critically low 9.5-13.5 [facility] Comment on above: Performed By: #### P OCGLUC #### [facility] [address] [address] [address] Juliet García PLT 211 103/ul Normal 150-450 [facility] Comment on above: Performed By: #### P OCGLUC #### [facility] [address] [address] [address] Juliet García RBC 4.46 106/ul Critically low 4.70-6.10 [facility] Comment on above: Performed By: #### P OCGLUC #### [facility] [address] [address] [address] Juliet García WBC 6.8 103/ul Normal 4.0-11.0 [facility] Comment on above: Performed By: #### P OCGLUC #### [facility] [address] [address] [address] Juliet García POINT OF CARE GLUCOSEon 10-12 Glucose [Mass/Vol] 100 mg/dL Normal 74-[address] [facility] Comment on above: Performed By: #### P OCGLUC #### [facility] [address] [address] [address] Juliet García Glucose [Mass/Vol] 94 mg/dL Normal 74-[address] [facility] Comment on above: Performed By: #### A 1C #### [facility] [address] [address] [address] Juliet García Lab Reportson 10-14-2022 Lab Reports [id number]#1.0 0CD:127 Normal [facility] Hospital Correspo ndenceon 10-14-2022 Outside [facility] Correspondence [id number] 0CD:127 Normal [facility] PROF CHEM 8 (BAS METB)on Anion gap [Moles/Vol] 14.0 mmol/L Normal [facility] Comment on above: Performed By: #### B MP #### [facility] [address] [address] [address] Juliet García Calcium [Mass/Vol] 9.0 mg/dL Normal 8.5-10.[address] [facility] Comment on above: Performed By: #### B MP #### [facility] [address] [address] [address] Juliet García Chloride [Moles/Vol] 107 mmol/L Normal 98-107 [facility] Comment on above: Performed By: #### B MP #### [facility] [address] [address] [address] Juliet García CO2 [Moles/Vol] 28.7 mmol/L Normal 21.0-32.0 [facility] Comment on above: Performed By: #### B MP #### [facility] [address] [address] [address] Juliet García Creatinine [Mass/Vol] 1.41 mg/dL Critically high 0.70-1.30 [facility] Comment on above: Performed By: #### B MP #### [facility] [address] [address] [address] Juliet García EGFR-AF JORDANIAN >60 Normal >=60 [facility] Comment on above: Performed By: #### B MP #### [facility] [address] [address] [address] Juliet García EGFR-NON AF JORDANIAN 50 mL/min/1.73m2 Critically low >=60 [facility] Comment on above: Performed By: #### B MP #### [facility] [address] [address] [address] Juliet García Glucose [Mass/Vol] 95 mg/dL Normal 74-106 [facility] Comment on above: Performed By: #### B MP #### [facility] [address] [address] [address] Juliet García Potassium [Moles/Vol] 4.7 mmol/L Normal 3.5-5.1 [facility] Comment on above: Performed By: #### B MP #### [facility] [address] [place], [place] [address] Dr. Juliet García Sodium [Moles/Vol] 145 mmol/L Normal 136-[address] [facility] Comment on above: Performed By: #### B MP #### [facility] [address] [place], [place] [address] Dr. Juliet García Urea nitrogen [Mass/Vol] 25.0 mg/dL Critically high 7.0-18.0 [facility] Comment on above: Performed By: #### B MP #### [facility] [address] [address] [address] Juliet García Urea nitrogen/Creatinine [Mass ratio] 17.7 mg/mg Normal [facility] Comment on above: Performed By: #### B MP #### [facility] [id number] Juliet García Office Visiton 07-31-2022 Follow-up visit [id number] Carlos Locke 1955 M Date Provider Department Center 07/31/2022 BENTLEY MENDOZA [facility] Family History Problem Relation Age of Onset Stroke Father Family Status - Relation Status Age at Father Level of Service:59381 [place] OFFICE/OUTPATIENT ESTABLISHED MOD MDM 30-39 MIN Reason for Visit and Comments: Hyperlipidemia [182] Hypertension [404458] history of PE [Other] Normal [facility] CULTURE WOUNDon 07-24-2022 CULTURE WOUND Culture Observations : No growth of anaerobes at 72 hours. Isolate 1 Stenotrophomonas maltophilia Moderate growth of ORGANISM 1 Stenotrophomonas maltophilia ANTIBIOTIC M.I.C RX STATUS Levofloxacin 1 S F Trimethoprim/Sulfameth oxazole <=20 S F Normal [facility] Comment on above: Performed By: #### W OUNDCX ####[facility] [id number] [place], [place] [address]QaDr. Juliet García GLYCOHEMOGLOBIN A1Con 2022 ADA RECOMMENDATION SEE BELOW Normal [facility] Comment on above: Result Comment: ADA RECOMMENDED LIMIT 4.0 - 6.0 ADA THERAPEUTIC TARGET < 7.0 ACTION SUGGESTED > 7.0 Performed By: #### A 1C #### [facility] [address] [place], [place] [address] Dr. Juliet García Glucose [Mass/Vol] 111 mg/dL Normal [facility] Comment on above: Performed By: #### A 1C #### [facility] [address] [place], [place] [address] Dr. Juliet García HbA1c (Bld) [Mass fraction] 5.5 % Normal 4.5-6.2 [facility] Comment on above: Performed By: #### A 1C #### [facility] [address] [place], [place] [address] Dr. Juliet García ECHOCARDIO M/2D COMPLETEon 1 08-29-2021 ECHOCARDIO M/2D COMPLETE Patient: CARLOS LOCKE Exam Date: 06/28/2022 : 1955 Gender:M Ordering : DR LOLY BARNARD M.D. Admission #: [id number] Family : Order #: [id number] CLICK HERE TO VIEW EXAM ECHOCARDIOGRAM REPORT [...] M.D. on 07/04/2022 at 13:38 Normal [facility] URIC ACID SERUMon 06-10-2022 Urate [Mass/Vol] 6.9 mg/dL Normal 3.5-7.2 [facility] Comment on above: Performed By: #### A 1C #### [facility] [address] [place] [address] Dr. Juliet García XR KUB 1 VIEWon [...] RACHEAL GRAVES Date: 2022-05-28 07:31 Normal [facility] CBC AUTO DIFFon 05-03-2022 BASO # 0.1 103/ul Normal 0.0-0.1 [facility] Comment on above: Performed By: #### C BC #### [facility] [address] [place] [address] Dr. Juliet García Basophils/100 WBC (Bld) 0.9 % Normal 0.2-2.0 [facility] Comment on above: Performed By: #### C BC #### [facility] [address] [place] [address] Dr. Juliet García EO # 0.4 103/ul Normal 0.0-0.7 [facility] Comment on above: Performed By: #### C BC #### [facility] [address] [place] [address] Dr. Juliet García Eosinophils/100 WBC (Bld) 5.2 % Normal 0.9-7.0 [facility] Comment on above: Performed By: #### C BC #### [facility] [address] [place] [address] Dr. Juliet García Erythrocyte distribution width (RBC) [Ratio] 13.6 % Normal 11.0-15.0 [facility] Comment on above: Performed By: #### C BC #### [facility] [address] [place] [address] Dr. Juliet García Hematocrit (Bld) [Volume fraction] 40.5 % Critically low 42.0-54.0 [facility] Comment on above: Performed By: #### C BC #### [facility] [address] [address] [address] Juliet García Hemoglobin (Bld) [Mass/Vol] 13.7 g/dL Critically low 14.0-18.0 [facility] Comment on above: Performed By: #### C BC #### [facility] [address] [address] [address] Juliet García IG # 0.02 10e3/ul Normal 0.00-0.03 [facility] Comment on above: Performed By: #### C BC #### [facility] [address] [place] [address] Dr. Juliet García IG % 0.3 % Normal 0.0-0.5 [facility] Comment on above: Performed By: #### C BC #### [facility] [address] [place] [address] Dr. Juliet García LYMPH # 1.9 103/ul Normal 1.2-3.8 [facility] Comment on above: Performed By: #### C BC #### [facility] [address] [place] [address] Dr. Juliet García Lymphocytes/100 WBC (Bld) 27.7 % Normal 20.5-60.0 [facility] Comment on above: Performed By: #### C BC #### [facility] [address] [place] [address] Dr. Juliet García MANUAL DIFF REQ NO Normal [facility] Comment on above: Performed By: #### C BC #### [facility] [address] [place] [address] Dr. Juliet García MCH (RBC) [Entitic mass] 33.3 pg Normal 25.9-34.0 [facility] Comment on above: Performed By: #### C BC #### [facility] [address] [place] [address] Dr. Juliet García MCHC (RBC) [Mass/Vol] 33.8 g/dL Normal 29.9-35.2 [facility] Comment on above: Performed By: #### C BC #### [facility] [address] [address] [address] Juliet García MCV (RBC) [Entitic vol] 98.3 fL Critically high 80.0-94.0 [facility] Comment on above: Performed By: #### C BC #### [facility] [address] [address] [address] Juliet García MONO # 0.7 103/ul Normal 0.3-0.8 [facility] Comment on above: Performed By: #### C BC #### [facility] [address] [address] [address] Juliet García Monocytes/100 WBC (Bld) 9.9 % Normal 1.7-12.0 [facility] Comment on above: Performed By: #### C BC #### [facility] [address] [place] [address] Dr. Juliet García NEUT # 3.8 103/ul Normal 1.4-6.5 [facility] Comment on above: Performed By: #### C BC #### [facility] [address] [place] [address] Dr. Juliet García Neutrophils/100 WBC (Bld) 56.0 % Normal 43.0-75.0 [facility] Comment on above: Performed By: #### C BC #### [facility] [address] [place] [address] Dr. Juliet García Platelet mean volume (Bld) [Entitic vol] 9.0 fL Critically low 9.5-13.5 [facility] Comment on above: Performed By: #### C BC #### [facility] [address] [place] [address] Dr. Juliet García PLT 201 103/ul Normal 150-450 [facility] Comment on above: Performed By: #### C BC #### [facility] [address] [address] [address] Juliet García RBC 4.12 106/ul Critically low 4.70-6.10 [facility] Comment on above: Performed By: #### C BC #### [facility] [address] [address] [address] Juliet García WBC 6.7 103/ul Normal 4.0-11.0 [facility] Comment on above: Performed By: #### C BC #### [facility] [address] [address] [address] Juliet García GLYCOHEMOGLOBIN A1Con 2021 ADA RECOMMENDATION SEE BELOW Normal [facility] Comment on above: Result Comment: ADA RECOMMENDED LIMIT 4.0 - 6.0 ADA THERAPEUTIC TARGET < 7.0 ACTION SUGGESTED > 7.0 Performed By: #### A 1C #### [facility] [address] [address] [address] Juliet García Glucose [Mass/Vol] 108 mg/dL Normal [facility] Comment on above: Performed By: #### A 1C #### [facility] [address] [place] [address] Dr. Juliet García HbA1c (Bld) [Mass fraction] 5.4 % Normal 4.5-6.2 [facility] Comment on above: Performed By: #### A 1C #### [facility] [address] [place] [address] Dr. Juliet García LIPID PROFILEon 05-03-2022 CHOL-HDL RATIO NORM SEE BELOW Normal [facility] Comment on above: Result Comment: 3.3 - 4.4 LOW RISK 4.4 - 7.1 AVERAGE RISK 7.1 - 11.0 MODERATE RISK >11.0 HIGH RISK Performed By: #### L IPID, CMP #### [facility] [address] [place] [address] Dr. Juliet García Cholesterol [Mass/Vol] 154 mg/dL Normal <=200 [facility] Comment on above: Performed By: #### L IPID, CMP #### [facility] [address] [address] [address] Juliet García Cholesterol in HDL [Mass/Vol] 29 mg/dL Critically low 40-60 [facility] Comment on above: Performed By: #### L IPID, CMP #### [facility] [address] [address] [address] Juliet García Cholesterol in LDL [Mass/Vol] 64.2 mg/dL Normal [facility] Comment on above: Performed By: #### L IPID, CMP #### [facility] [address] [address] [address] Juliet García Cholesterol.total/Ch olesterol in HDL [Mass ratio] 5.3 {ratio} Normal [facility] Comment on above: Performed By: #### L IPID, CMP #### [facility] [address] [address] [address] Juliet García HDL NORMAL > or = 60 mg/dl - LO W CARDIOVASCULAR RISK <40 mg/dl - HIGH CARDIOVASCULAR RISK Normal [facility] Comment on above: Performed By: #### L IPID, CMP #### [facility] [address] [place] [address] Dr. Juliet García LDL CALC NORMAL SEE BELOW Normal [facility] Comment on above: Result Comment: <100 mg/dl OPTIMAL 100 - 129 mg/dl NEAR OR ABOVE OPTIMAL 130 - 159 mg/dl BORDERLINE HIGH 160 - 189 mg/dl HIGH >190 mg/dl VERY HIGH Performed By: #### L IPID, CMP #### [facility] [address] [place] [address] Dr. Juliet García Triglyceride [Mass/Vol] 304 mg/dL Critically high <=150 [facility] Comment on above: Performed By: #### L IPID, CMP #### [facility] [address] [place] [address] Dr. Juliet García VLDL CALC 60.8 mg/dL Normal [facility] Comment on above: Performed By: #### L IPID, CMP #### [facility] [address] [address] [address] Juliet García PROF 14(COMP METB)on 022 Albumin [Mass/Vol] 3.7 g/dL Normal 3.4-5.[address] [facility] Comment on above: Performed By: #### L IPID, CMP #### [facility] [address] [place] [address] Dr. Juliet García Albumin/Globulin [Mass ratio] 1.1 {ratio} Normal [facility] Comment on above: Performed By: #### L IPID, CMP #### [facility] [address] [address] [address] Juliet García ALP [Catalytic activity/Vol] 87 U/L Normal 46-116 [facility] Comment on above: Performed By: #### L IPID, CMP #### [facility] [address] [address] [address] Juliet García ALT [Catalytic activity/Vol] 52 U/L Normal 16-63 [facility] Comment on above: Performed By: #### L IPID, CMP #### [facility] [address] [place] [address] Dr. Juliet García Anion gap [Moles/Vol] 11.5 mmol/L Normal [facility] Comment on above: Performed By: #### L IPID, CMP #### [facility] [address] [place] [address] Dr. Juliet García AST [Catalytic activity/Vol] 27 U/L Normal 15-37 [facility] Comment on above: Performed By: #### L IPID, CMP #### [facility] [address] [place] [address] Dr. Juliet García Bilirubin [Mass/Vol] 0.4 mg/dL Normal 0.2-1.0 [facility] Comment on above: Performed By: #### L IPID, CMP #### [facility] [address] [place] [address] Dr. Juliet García Calcium [Mass/Vol] 8.7 mg/dL Normal 8.5-10.[address] [facility] Comment on above: Performed By: #### L IPID, CMP #### [facility] [address] [place] [address] Dr. Juliet García Chloride [Moles/Vol] 106 mmol/L Normal 98-107 [facility] Comment on above: Performed By: #### L IPID, CMP #### [facility] [address] [place] [address] Dr. Juliet García CO2 [Moles/Vol] 28.2 mmol/L Normal 21.0-32.0 [facility] Comment on above: Performed By: #### L IPID, CMP #### [facility] [address] [place] [address] Dr. Juliet García Creatinine [Mass/Vol] 1.21 mg/dL Normal 0.70-1.30 [facility] Comment on above: Performed By: #### L IPID, CMP #### [facility] [address] [address] [address] Juliet García EGFR-AF JORDANIAN >60 Normal >=60 [facility] Comment on above: Performed By: #### L IPID, CMP #### [facility] [address] [place] [address] Dr. Juliet García EGFR-NON AF JORDANIAN =60 Normal >=60 [facility] Comment on above: Performed By: #### L IPID, CMP #### [facility] [address] [place] [address] Dr. Juliet García Globulin (S) [Mass/Vol] 3.4 g/dL Normal [facility] Comment on above: Performed By: #### L IPID, CMP #### [facility] [address] [place] [address] Dr. Juliet García Glucose [Mass/Vol] 100 mg/dL Normal 74-[address] [facility] Comment on above: Performed By: #### L IPID, CMP #### [facility] [address] [place] [address] Dr. Juliet García Potassium [Moles/Vol] 4.7 mmol/L Normal 3.5-5.1 [facility] Comment on above: Performed By: #### L IPID, CMP #### [facility] [address] [place] [address] Dr. Juliet García Protein [Mass/Vol] 7.1 g/dL Normal 6.4-8.2 [facility] Comment on above: Performed By: #### L IPID, CMP #### [facility] [address] [place] [address] Dr. Juliet García Sodium [Moles/Vol] 141 mmol/L Normal 136-[address] [facility] Comment on above: Performed By: #### L IPID, CMP #### [facility] [address] [address] [address] Juliet García Urea nitrogen [Mass/Vol] 23.0 mg/dL Critically high 7.0-18.0 [facility] Comment on above: Performed By: #### L IPID, CMP #### [facility] [address] [address] [address] Juliet García Urea nitrogen/Creatinine [Mass ratio] 19.0 mg/mg Normal [facility] Comment on above: Performed By: #### L IPID, CMP #### [facility] [address] [address] [address] Juliet García VC CONSULT FOLLOWUPon 2021 VC CONSULT FOLLOWUP Patient: CARLOS LOCKE Exam Date: 04/08/2022 : 1955 Gender:M Ordering : DR RACHEAL GRAVES M.D. Admission #: [id number] Family : Order #: [id number] CLICK HERE [...] Graves MD on 04/08/2022 at 11:30 Normal [facility] VC EXT VENOUS RT LIMITEDon 0 04-08-2022 VC EXT VENOUS RT LIMITED Patient: CARLOS LOCKE Exam Date: 04/08/2022 : 1955 Gender:M Ordering : DR RACHEAL GRAVES M.D. Admission #: [id number] Family : Order #: [id number] CLICK HERE TO VIEW EXAM RADIOLOGY REPORT [...] 0s reflux. *Exam performed in accordance with [facility] practice guidelines- Peripheral venous ultrasound, October 07, 2009. CONCLUSION: Post ablation occlusion of right leg incompetent varicose veins Dictated by: Racheal Graves MD on 04/08/2022 at 11:31 Approved by: Racheal Graves MD on 04/08/2022 at 11:31 Normal [facility] VC INJ FOAM SCLERO W US MLTI on 04-03-2022 VC INJ FOAM SCLERO W US MLTI Patient: CARLOS LOCKE Exam Date: 04/03/2022 : 1955 Gender:M Ordering : DR RACEHAL GRAVES M.D. Admission #: [id number] Family : DR NATHALY BOONE . Order #: [id number] CLICK HERE TO VIEW EXAM RADIOLOGY REPORT [...] av (more content not included)... Normal [facility] VC CONSULT FOLLOWUPon 2021 VC CONSULT FOLLOWUP Patient: CARLOS LOCKERusty Exam Date: 03/25/2022 : 1955 Gender:M Ordering : DR RACHEAL GRAVES M.D. Admission #: [id number] Family : Order #: [id number] CLICK HERE TO VIEW EXAM RADIOLOGY REPORT [...] the physical exam and consultation Dictated by: Akash Kenny M.D. on 03/25/2022 at 08:39 Approved by: Akash Kenny M.D. on 03/25/2022 at 08:41 [facility] VC EXT VENOUS RT LIMITEDon 0 03-25-2022 VC EXT VENOUS RT LIMITED Patient: CARLOS LOCKE Exam Date: 03/25/2022 : 1955 Gender:M Ordering : DR RACHEAL GRAVES M.D. Admission #: [id number] Family : Order #: [id number] CLICK HERE TO VIEW EXAM RADIOLOGY REPORT [...] of right great saphenous vein. Dictated by: Akash Kenny M.D. on 03/25/2022 at 08:37 Approved by: Akash Kenny M.D. on 03/25/2022 at 08:39 Normal [facility] VC ENDOVENOUS ABL 1ST V RTon 03-19-2022 VC ENDOVENOUS ABL 1ST V RT Patient: CARLOS LOCKE Exam Date: 03/19/2022 : 1955 Gender:M Ordering : DR RACHEAL GRAVES M.D. Admission #: [id number] Family : Order #: [id number] CLICK HERE TO VIEW EXAM RADIOLOGY REPORT PROCEDURE: VEIN CENTER ENDOVENOUS ABLATION FIRST VEIN RIGHT GREAT SAPHENOUS VEIN COMPARISON: None. INDICATIONS: Pain co-occurrent and due to varicose veins of bilateral legs I83.813 OPERATIVE REPORT: The risks and benefits of the procedure had been previously discussed, and were rediscussed at length. Informed written consent was obtained by me and Manjit Cortés assisted. Time out procedure [...] Racheal Graves MD on 03/19/2022 at 08:58 Normal [facility] VC CONSULT FOLLOWUPon 2021 VC CONSULT FOLLOWUP Patient: CARLOS LOCKE Exam Date: 02/18/2022 : 1955 Gender:M Ordering : DR RACHEAL GRAVES M.D. Admission #: [id number] Family : Order #: [id number] CLICK HERE TO VIEW EXAM RADIOLOGY REPORT [...] Graves MD on 02/18/2022 at 09:45 Normal [facility] VC EXT VENOUS LT LIMITEDon 0 02-18-2022 VC EXT VENOUS LT LIMITED Patient: CARLOS LOCKE Exam Date: 02/18/2022 : 1955 Gender:M Ordering : DR RACHEAL GRAVES M.D. 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 *Exam performed in accordance with [facility] practice guidelines- Peripheral venous ultrasound, October 07, 2009. CONCLUSION: Post ablation occlusion of left leg varicose veins Dictated by: Racheal Graves MD on 02/18/2022 at 09:32 Approved by: Racheal Graves MD on 02/18/2022 at 09:36 Normal [facility] VC INJ FOAM SCLERO W US MLTI on 02-13-2022 VC INJ FOAM SCLERO W US MLTI Patient: CARLOS LOCKE Exam Date: 02/13/2022 : 1955 Gender:M Ordering : DR RACHEAL GRAVES M.D. Admission #: [id number] Family : Order #: [id number] CLICK HERE TO VIEW EXAM RADIOLOGY REPORT [...] with Varithena(r) 2. Intraoperative ultrasound guidance Physician: Akash Kenny M.D. Anesthesia: None. Indications for Procedure: [...] days. PERSONNEL: Manjit Cortés R.N. Dictated by: Akash Kenny M.D. on 02/13/2022 at 10:10 Approved by: Akash Kenny M.D. on 02/13/2022 at 10:15 Normal [facility] VC CONSULT FOLLOWUPon 2021 VC CONSULT FOLLOWUP Patient: CARLOS LOCKE Exam Date: 02/06/2022 : 1955 Gender:M Ordering : DR RACHEAL GRAVES M.D. Admission #: [id number] Family : Order #: [id number] CLICK HERE TO VIEW EXAM RADIOLOGY REPORT [...] the physical exam and consultation Dictated by: Akash Kenny M.D. on 02/06/2022 at 09:49 Approved by: Akash Kenny M.D. on 02/06/2022 at 09:53 Normal [facility] VC EXT VENOUS LT LIMITEDon 0 02-06-2022 VC EXT VENOUS LT LIMITED Patient: CARLOS LOCKE Exam Date: 02/06/2022 : 1955 Gender:M Ordering : DR RACHEAL GRAVES M.D. Admission #: [id number] Family : Order #: [id number] CLICK HERE TO VIEW EXAM RADIOLOGY REPORT [...] OF LEFT GREAT SAPHENOUS VEIN. Dictated by: Akash Kenny M.D. on 02/06/2022 at 09:26 Approved by: Akash Kenny M.D. on 02/06/2022 at 09:49 Normal [facility] GLYCOHEMOGLOBIN A1Con 2021 ADA RECOMMENDATION SEE BELOW Normal [facility] Comment on above: Result Comment: ADA RECOMMENDED LIMIT 4.0 - 6.0 ADA THERAPEUTIC TARGET < 7.0 ACTION SUGGESTED > 7.0 Performed By: #### A 1C #### [facility] [address] [address] [address] Juliet García Glucose [Mass/Vol] 108 mg/dL Normal [facility] Comment on above: Performed By: #### A 1C #### [facility] [address] [address] [address] Juliet García HbA1c (Bld) [Mass fraction] 5.4 % Normal 4.5-6.2 [facility] Comment on above: Performed By: #### A 1C #### [facility] [address] [address] [address] Juliet García PROF 14(COMP METB)on 022 Albumin [Mass/Vol] 4.0 g/dL Normal 3.4-5.[address] [facility] Comment on above: Performed By: #### C MP ####[facility] [address] [address]Dr. Juliet García Albumin/Globulin [Mass ratio] 1.2 {ratio} Normal [facility] Comment on above: Performed By: #### C MP ####[facility] [address] [address]Dr. Juliet García ALP [Catalytic activity/Vol] 89 U/L Normal 46-116 [facility] Comment on above: Performed By: #### C MP ####[facility] [address] [address]Dr. Juliet García ALT [Catalytic activity/Vol] 81 U/L Critically high 16-63 [facility] Comment on above: Performed By: #### C MP ####[facility] [address] [address]Dr. Juliet García Anion gap [Moles/Vol] 13.6 mmol/L Normal [facility] Comment on above: Performed By: #### C MP ####[facility] [address] [place], [place] [address]Dr. Juliet García AST [Catalytic activity/Vol] 32 U/L Normal 15-37 [facility] Comment on above: Performed By: #### C MP ####[facility] [address] [place], [place] [address]Dr. Juliet García Bilirubin [Mass/Vol] 0.5 mg/dL Normal 0.2-1.0 [facility] Comment on above: Performed By: #### C MP ####[facility] [address] [address]Dr. Juliet García Calcium [Mass/Vol] 8.9 mg/dL Normal 8.5-10.1 [facility] Comment on above: Performed By: #### C MP ####[facility] [address] [address]. Juliet García Chloride [Moles/Vol] 106 mmol/L Normal 98-107 [facility] Comment on above: Performed By: #### C MP ####[facility] [address] [address]Dr. Juliet García CO2 [Moles/Vol] 27.1 mmol/L Normal 21.0-32.0 [facility] Comment on above: Performed By: #### C MP ####[facility] [address] [address]Dr. Juliet García Creatinine [Mass/Vol] 1.46 mg/dL Critically high 0.70-1.30 [facility] Comment on above: Performed By: #### C MP ####[facility] [address] [place], [place] [address]Dr. Juliet García EGFR-AF JORDANIAN 59 mL/min/1.73m2 Critically low >=60 [facility] Comment on above: Performed By: #### C MP ####[facility] [address] [address]Dr. Juliet García EGFR-NON AF JORDANIAN 48 mL/min/1.73m2 Critically low >=60 [facility] Comment on above: Performed By: #### C MP ####[facility] [address] [address]Dr. Juliet García Globulin (S) [Mass/Vol] 3.4 g/dL Normal [facility] Comment on above: Performed By: #### C MP ####[facility] [address] [address]Dr. Juliet García Glucose [Mass/Vol] 93 mg/dL Normal 74-106 [facility] Comment on above: Performed By: #### C MP ####[facility] [address] [address]Dr. Juliet García Potassium [Moles/Vol] 4.7 mmol/L Normal 3.5-5.1 [facility] Comment on above: Performed By: #### C MP ####[facility] [address] [place], [place] [address]Dh. Juliet García Protein [Mass/Vol] 7.4 g/dL Normal 6.4-8.[address] [facility] Comment on above: Performed By: #### C MP ####[facility] [address] [place], [place] [address]Tl. Juliet García Sodium [Moles/Vol] 142 mmol/L Normal 136-145 [facility] Comment on above: Performed By: #### C MP ####[facility] [address] [place], [place] [address]An. Juliet García Urea nitrogen [Mass/Vol] 25.0 mg/dL Critically high 7.0-18.0 [facility] Comment on above: Performed By: #### C MP ####[facility] [address] [id number]. Juliet García Urea nitrogen/Creatinine [Mass ratio] 17.1 mg/mg Normal [facility] Comment on above: Performed By: #### C MP ####[facility] [address] [id number]. Juliet García VC ENDOVENOUS ABL 1ST V LTon 01-30-2022 VC ENDOVENOUS ABL 1ST V LT Patient: CARLOS LOCKE Exam Date: 01/30/2022 : 1955 Gender:M Ordering : DR RACHEAL GRAVES M.D. Admission #: [id number] Family : Order #: [id number] CLICK HERE TO VIEW EXAM RADIOLOGY REPORT PROCEDURE: VEIN CENTER ENDOVENOUS ABLATION FIRST VEIN LEFT COMPARISON: None. INDICATIONS: Pain co-occurrent and due to varicose veins of bilateral legs I83.813 OPERATIVE REPORT: The risks and benefits of the procedure had been previously discussed, and were rediscussed at length. Informed written consent was obtained by me and Manjit Cortés assisted. Time out procedure was performed. The left [...] the left great saphenous vein. Dictated by: Akash Kenny M.D. on 01/30/2022 at 11:59 Approved by: Akash Kenny M.D. on 01/30/2022 at 12:00 Normal [facility] POINT OF CARE GLUCOSEon 01-11 Glucose [Mass/Vol] 84 mg/dL Normal 74-[address] [facility] Comment on above: Performed By: #### P OCGLUC #### [facility] [address] [address] [address] Juliet García VC COMP CONSULTATIONon 01-21 VC COMP CONSULTATION Patient: CARLOS LOCKE Exam Date: 01/21/2022 : 1955 Gender:M Ordering : DR RACHEAL GRAVES M.D. Admission #: [id number] Family : Order #: [id number] CLICK HERE TO VIEW EXAM RADIOLOGY REPORT [...] for years. The patient is retired from [employer] after working 42 years. The patient denies [...] any additional information, and this was performed [facility]. See separate history and physical for medication [...] incompetent branch saphenous tributary/varicose veins. 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 PHYSICAL EXAM: The right leg demonstrates [...] pulses were present bilaterally. IMPRESSION: 1. Bilateral ijfk-eg-prlopvkj great saphenous vein and mild right small [...] MD on 01/21/2022 at 11:46 Normal [facility] VC VENOUS REFLUX MARIE LMTon 0 01-21-2022 VC VENOUS REFLUX MARIE LMT Patient: CARLOS LOCKERusty Exam Date: 01/21/2022 : 1955 Gender:M Ordering : DR RACHEAL GRAVES M.D. Admission #: [id number] Family : DR ANDERSEN EtelvinaRusty BOONE . Order #: [id number] CLICK HERE TO VIEW EXAM RADIOLOGY REPORT [...] Compressibility: Normal. Flow: Mild deep venous reflux. 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 Prox/med calf [...] MD on 01/21/2022 at 10:40 Normal [facility] POINT OF CARE GLUCOSEon - Glucose [Mass/Vol] 87 mg/dL Normal [address] [facility] Comment on above: Performed By: #### P OCGLUC ####[facility] [address] [place], [place] [address]Qo. Juliet García SURGICAL PATHOLOGYon 021 SURGICAL PATHOLOGY Specimen #: [id number] Submitting Physician: JULIET GARCÍA M.D. FINAL DIAGNOSIS [place], [place]; [id number] (12/07/2020) Liver, mass , biopsy (A1, A2, [...] do not hesitate to contact us at [phone] with questions or if additional follow up information becomes available. This case was reviewed in conjunction with the GI pathology fellow, Apoorva Diallo MD. The following stains were performed at the [facility] in order to further characterize this [...] in-situ hybridization tests have been determined by [facility]'s Frankie JRusty [facility] Pathology and Laboratory Medicine [place] (RT-[place]) in a manner consistent with CLIA requirements. One or more of these tests have not been cleared or approved by the FDA. [facility] is regulated under CLIA as qualified to perform high-complexity testing. These tests are used for clinical purposes. They should not be regarded as investigational or for research. Nicolasa Cheema M.D. (Electronic Signature) _ SPECIMEN SUBMITTED A: 12 slides [id number] CLINICAL DATA Mass Date of Report: 03/27/2021 Date of Procedure: 03/16/2021 Date of Receipt: 03/15/2021 Submitted by: JULIET GARCÍA M.D. Location: Diagnostic interpretation performed at [place] [address]. CLIA Number: [id number] Normal [facility] Comment on above: Performed By: #### S #### See report for performing lab information. Vital Signs Date Time Vital Sign Value Performing Clinician Facility 06-03-2023 09:59-0500 Blood Pressure Location LIZ HERNANDEZ [facility] 06-03-2023 09:59-0500 Diastolic blood pressure 74 mm[Hg] LIZ HERNANDEZ [facility] 06-03-2023 09:59-0500 Heart rate 70 /min LIZ HERNANDEZ [facility] 06-03-2023 09:59-0500 Respiratory rate 16 /min LIZ HERNANDEZ [facility] 06-03-2023 09:59-0500 Systolic blood pressure 138 mm[Hg] LIZ HERNANDEZ [facility] 05-23-2022 09:45-0500 Body height 187.96 cm Alejandra Olexa Other [facility] Other 05-23-2022 09:45-0500 Body mass index (BMI) [Ratio] 40.57 kg/m2 Alejandra Olexa Other [facility] Other 05-23-2022 09:45-0500 Body weight 143.34 kg Alejandra Olexa Other [facility] Other 08-07-2021 14:15-0500 Body height 187.96 cm Alejandra Olexa Other [facility] Other 08-07-2021 14:15-0500 Body mass index (BMI) [Ratio] 40.64 kg/m2 Alejandra Olexa Other [facility] Other 08-07-2021 14:15-0500 Body weight 143.61 kg Alejandra Olexa Other [facility] Other 04-12-2021 10:30-0400 Body height 187.96 cm Racheal Daniels Other [facility] Other 04-12-2021 10:30-0400 Body mass index (BMI) [Ratio] 41.75 kg/m2 Racheal Daniels Other [facility] Other 04-12-2021 10:30-0400 Body weight 147.51 kg Racheal Daniels Other [facility] Other 04-12-2021 10:30-0400 Diastolic blood pressure 71 mm[Hg] Racheal Daniels Other [facility] Other 04-12-2021 10:30-0400 Systolic blood pressure 131 mm[Hg] Racheal Daniels Other [facility] Other Encounters Encounter Date Encounter Type Care Provider Facility Start: 11-04-2023 ambulatory PA-C LIZ HERNANDEZ Facility:[facility] Start: 06-03-2023 End: 06-04-2023 ambulatory PA-C LIZ HERNANDEZ Facility:[facility] Start: 06-03-2023 End: 06-03-2023 Patient encounter procedure LIZ HERNANDEZ [facility] Start: 01-06-2023 End: 01-07-2023 ambulatory Donaldo Sparrow MD Facility:[facility] Start: 12-05-2022 End: 12-06-[address] BEKAH BERRIOS . Facility: Start: 12-03-2022 End: 12-04-[address] BEKAH BERRIOS . Facility:[facility] Start: 11-29-2022 End: 11-30-2022 ambulatory CRISPIN GONSALEZ . Facility:[facility] Start: 11-12-2022 End: 11-13-[address] BEKAH BERRIOS . Facility:[facility] Start: 11-05-2022 End: 11-06-[address] BEKAH BERRIOS . Facility:[facility] Start: 10-28-2022 End: 10-29-[address] BEKAH BERRIOS . Facility:[facility] Start: 10-23-2022 ambulatory BEKAH BERRIOS Facility:[facility] Start: 10-21-2022 End: 10-21-[address] BEKAH BERRIOS . Facility:[facility] Start: 10-18-2022 Encounter for preprocedural cardiovascular examination [facility] Start: 10-18-2022 Encounter for preprocedural laboratory examination [facility] Start: 10-16-[address] BEKAH BERRIOS . Facil ity:[facility] Start: 10-10-2022 End: 10-11-[address] BEKAH BERRIOS . Facility:[facility] Start: 10-10-2022 End: 10-11-2022 Encounter for preprocedural cardiovascular examination DR BEKAH BERRIOS . Facility:[facility] Start: 09-24-2022 End: 09-25-[address] BEKAH BERRIOS . Facility:[facility] Start: 09-20-2022 End: 09-20-[address] BEKAH BERRIOS . Facility:[facility] Start: 09-10-2022 End: 09-11-[address] BEKAH BERRIOS . Facility:[facility] Start: 09-06-2022 ambulatory BEKAH BERRIOS Facility:[facility] [place] Start: 08-26-2022 End: 08-27-[address] BEKAH BERRIOS . Facility:[facility] Start: 08-06-2022 End: 08-07-2022 ambulatory TONIO BELL Facility:[facility] Start: 07-31-2022 End: 07-31-2022 ambulatory [facility] Start: 07-31-2022 End: 08-01-[address] NATHALY BOONE . Facility:[facility] Start: 07-25-2022 End: 07-26-2022 ambulatory RODRIGO JOHNSON . Facility:[facility] Start: 07-24-2022 End: 07-25-2022 ambulatory TONIO BELL Facility:[facility] Start: 07-23-2022 End: 07-24-[address] BEKAH BERRIOS . Facility:[facility] Start: 07-22-2022 End: 07-23-[address] BEKAH BERRIOS . Facility:[facility] Start: 07-05-[address] NATHALY BOONE . Faci lity:[facility] Start: 06-28-2022 End: 06-29-[address] LOLY BARNARD Facility:[facility] Start: 06-10-2022 End: 06-11-[address] BEKAH BERRIOS . Facility:[facility] Start: 05-27-2022 End: 05-28-[address] RACHEAL GRAVES Facility:[facility] Start: 05-23-2022 End: 05-23-2022 ambulatory Alejandra Cain Other [facility] Other Start: 05-23-2022 Office outpatient vi sit 15 minutes Alejandra Cain [facility] Start: 05-03-2022 End: 05-04-[address] BEKAH BERRIOS . Facility:[facility] Start: 04-23-2022 End: 04-24-2022 [...] RACHEAL GRAVES Facility:[facility] Start: 02-17-[address] BEKAH BERRIOS . Facil ity:[facility] Start: 02-14-2022 End: 02-15-[address] BEKAH BERRIOS . Facility:[facility] Start: 02-13-2022 End: 02-14-[address] BEKAH BERRISO . Facility:[facility] Start: 02-06-2022 End: 02-07-[address] BEKAH BERRIOS . Facility:[facility] Start: 02-05-2022 End: 02-06-[address] BEKAH BERRIOS . Facility:[facility] Start: 01-30-2022 End: 01-31-[address] BEKAH BERRIOS . Facility:[facility] Start: 01-22-2022 End: 01-22-[address] BEKAH BERRIOS . Facility:[facility] Start: 01-21-2022 End: 01-22-[address] BEKAH BERRIOS . Facility:[facility] Start: 01-08-2022 End: 01-08-[address] BEKAH BERRIOS . Facility:[facility] Start: 08-07-2021 End: 08-07-2021 ambulatory Alejandra Cain Other [facility] Other Start: 08-07-2021 Office outpatient vi sit 15 minutes Alejandra Cain [facility] Start: 04-12-2021 Office outpatient vi sit 15 minutes Racheal Daniels [facility] Gastroenterology Procedures Date Procedure Procedure Detail Performing Clinician Start: 05-03-[address] RACHEAL GRAVES Comment on above: Performed By: #### P SAD #### [facility] [address] [place] [address] [address] Juliet García Start: 12-07-2020 CT guided biopsy NATALIE HERNANDEZ Comment on above: LIVER. NO SEDATION. Arthroscopy of knee LIZ HERNANDEZ Bilateral cataracts (disorder) LIZ HERNANDEZ H/O: vasectomy LIZ ARGUETA Y Titanium (substance) JOSE R DAVID Comment on above: Toe Tonsillectomy LIZ HERNANDEZ Immunizations Immunization Date Immunization Notes [facility] SARS-CoV-2 mRNA (tozinameran 5y-11y) vaccine LIZ HERNANDEZ [facility] Comment on above: Result Comment: covi d 19 mRNA (cvs) 04-17-2022 influenza virus vacc ine, unspecified formulation LIZ HERNANDEZ [facility] 03-23-2022 SARS-CoV-2 (COVID-19 ) [id number] LIZ HERNANDEZ [facility] 10-23-2021 SARS-CoV-2 mRNA (kkhpkzxwjes-legs-eyokma e) vaccine LIZ HERNANDEZ [facility] 05-27-2021 pneumococcal polysaccharide vaccine, 23 valent LIZ HERNANDEZ [facility] 05-06-2021 SARS-CoV-2 (COVID-19 ) mRNA BNT-162b2 vax LIZ DAVID [facility] Comment on above: Result Comment: 2021: [id number] 04-07-2021 influenza virus vacc ine, unspecified formulation LIZ DAVID [facility] 09-18-2020 SARS-CoV-2 (COVID-19 ) mRNA BNT-162b2 vax LIZ DAVID [facility] [place] 04-19-2020 influenza virus vacc ine, unspecified formulation LIZ DAVID [facility] 04-15-2020 influenza virus vacc ine, unspecified formulation LIZ DAVID [facility] 04-20-2018 influenza virus vacc ine, unspecified formulation LIZ DAVID [facility] 03-24-2018 influenza virus vacc ine, unspecified formulation LIZ DAVID [facility] 05-01-2013 influenza virus vacc ine, unspecified formulation LIZ DAVID [facility] Payers Date Payer Category Payer Medicare 2022 Unknown [id number] 2022 Unknown 2021 Medicare [id number] 2019 Unknown [id number] 2. [id number] 1959 Medicare [id number] 1955 Unknown [id number] 2.16.84 0.1.021113.3.579.2.593 1955 Unknown [id number] 2.16.84 0.1.578703.3.579.2.593 1955 Unknown [id number] 2.16.84 0.1.720314.3.579.2.593 1955 Unknown [id number] 2.16.84 0.1.200981.3.579.2.593 1956 Unknown [id number] 2.16.84 0.1.134263.3.579.2.593 1956 Unknown [id number] 2.16.84 0.1.318595.3.579.2.593 1956 Unknown [id number] 2.16.84 0.1.012353.3.579.2.593 1956 Unknown [id number] 2.16.84 0.1.149593.3.579.2.593 1956 Unknown [id number] 2.16.84 0.1.851290.3.579.2.593 1956 Unknown [id number] 2.16.84 0.1.384820.3.579.2.593 1956 Unknown [id number] 2.16.84 0.1.828448.3.579.2.593 1956 Unknown [id number] 2.16.84 0.1.572859.3.579.2.593 1956 Unknown [id number] 2.16.84 0.1.581647.3.579.2.593 1956 Unknown [id number] 2.16.84 0.1.012504.3.579.2.593 1956 Unknown [id number] 2.16.84 0.1.338575.3.579.2.593 1956 Unknown [id number] 2.16.84 0.1.295637.3.579.2.593 1956 Unknown [id number] 2.16.84 0.1.160856.3.579.2.593 1956 Unknown [id number] 2.16.84 0.1.029249.3.579.2.593 1956 Unknown [id number] 2.16.84 0.1.525050.3.579.2.593 1956 Unknown [id number] 2.16.84 0.1.656395.3.579.2.593 1956 Unknown [id number] 2.16.84 0.1.856607.3.579.2.593 1956 Unknown [id number] 2.16.84 0.1.023914.3.579.2.593 1956 Unknown [id number] 2.16.84 0.1.824378.3.579.2.593 1956 Unknown [id number] 2.16.84 0.1.617608.3.579.2.593 1956 Unknown [id number] 2.16.84 0.1.020786.3.579.2.593 1956 Unknown [id number] 2.16.84 0.1.234930.3.579.2.593 1956 Unknown [id number] 2.16.84 0.1.589520.3.579.2.593 1956 Unknown [id number] 2.16.84 0.1.777562.3.579.2.593 1956 Unknown [id number] 2.16.84 0.1.350800.3.579.2.593 1956 Unknown [id number] 2.16.84 0.1.884583.3.579.2.593 1956 Unknown [id number] 2.16.84 0.1.217878.3.579.2.593 1956 Unknown [id number] 2.16.84 0.1.165100.3.579.2.593 1956 Unknown [id number] 2.16.84 0.1.463163.3.579.2.593 1956 Unknown [id number] 2.16.84 0.1.927056.3.579.2.593 1956 Unknown [id number] 2.16.84 0.1.268393.3.579.2.593 1956 Unknown [id number] 2.16.84 0.1.135389.3.579.2.593 1956 Unknown [id number] 2.16.84 0.1.863565.3.579.2.593 1956 Unknown [id number] 2.16.84 0.1.291416.3.579.2.593 1956 Unknown [id number] 2.16.84 0.1.898571.3.579.2.593 1956 Unknown [id number] 2.16.84 0.1.062893.3.579.2.593 1956 Unknown [id number] 2.16. 840.1.551276.3.579.2.196 1956 Unknown [id number] 2.16. 840.1.160008.3.579.2.196 1956 Unknown [id number] 2.16.8 40.1.762144.3.579.2.727 1956 Unknown [id number] 2.16.8 40.1.748937.3.579.2.727 1956 Unknown [id number] 2.16.8 40.1.729996.3.579.2.727 1956 Unknown [id number] 2.16.8 40.1.881065.3.579.2.727 Social History Date Type Detail Facility Sex Assigned At [facility] Start: 06-03-2023 Tobacco smoking status Never s moked tobacco (finding) [facility] Tobacco smoking status Never [facility] Functional Status Date Assessment Result Facility 06-03-2023 Functional Status N/A [facility] Clinical Notes 04-12-2021 to 06-03-2023 Note [...] treatment? Where to find more information [employer] [employer]: www.cancer.org [place] [employer]: www.auanet.org Contact a health care [...] provider. Document Revised: 12/24/2021 Document Reviewed: 12/24/2021 Nonpareil Patient Education 2022 [employer]. Follow Up Care 05/29/2022 11:47:27 With:LIZ HERNANDEZ PA-C, URL Address: [address] [place] [address] Berta [facility] [place] [address] [id number] When: Unknown Comments:6 mos w/ PSA [facility] 12-03-2022 Note PROCEDURE: XR FOOT L [...] 2. No acute abnormality. Electronically authenticated by: AKASH KENNY Date: 2022-12-03 09:57 [facility] 11-12-2022 Note PROCEDURE: XR FOOT L T [...] authenticated by: ZAFAR FERRER Date: 2022-11-12 13:59 [facility] 10-22-2022 Note PROCEDURE: XR FOOT L T [...] compared to intraoperative images. Electronically authenticated by: AKASH KENNY Date: 2022-10-22 07:48 [facility] 10-22-2022 Note PROCEDURE: XR FOOT L T 2V HISTORY: Pain COMPARISON: XR foot left 10/21/2022 FINDINGS: BONES:Multiple intraoperative spot fluoroscopic images demonstrate mechanical fusion of the first metatarsophalangeal joint and resection of head of first proximal phalanx. IMPRESSION: 1. Surgical changes of left first toe as detailed above. Electronically authenticated by: AKASH KENNY Date: 2022-10-22 07:46 [facility] 07-31-2022 Note Currently stable [facility] 07-31-2022 Note Hypertension is well controlled 114/64 Continue lisinopril 5 mg Recent CR elevated 1.59- his cr typically has been 1.2-1.4 - He has been on antibiotics for Lt foot infection- DFU with wound care. [facility] 07-31-2022 Note Lipid abnormalities are currently well controlled with lipitor 20 mg- LDL currently 58.6 on labs 07/26/2022 Liver function 04/2022 were normal [facility] 07-31-2022 Note UTP CARDIOLOGY PROGR ESS NOTE [...] RTC 1 year or earlier if needed [facility] 07-31-2022 Note Patient here for 6 m o follow up history of PE and hyperlipidemia. Had labs in Apr and echo in Jun 2022. Patient denies chest pain, SOB, and increase in LE edema. Doing very well from cardiac standpoint. Was seeing Dr. Graves for his varicose veins. Review of Systems Cardiovascular: Positive for leg swelling. All other systems reviewed and are negative. [facility] 07-31-2022 Note CONSULTATION PROCEDURE DATE: 07/31/2022 INDICATIONS: [...] the clinic in three months' time. [facility] 07-25-2022 Note CONSULTATION CONSULTATION DATE: 07/25/2022 HISTORY OF PRESENT ILLNESS: This is a 66-year-old gentleman who presents to the Pain Clinic today with increased lower back pain. The patient does have chronic bilateral knee pain, but he states those are doing quite well. He did receive a left knee steroid injection in April. The patient just recently returned from a [place] vacation, where he visited multiple [employer] mayes and had a lot of increased [...] and will be contacted upon approval. [facility] 07-24-2022 Note PROCEDURE: XR FOOT L T [...] findings to suggest osteomyelitis. Electronically authenticated by: AKASH KENNY Date: 2022-07-24 10:21 [facility] 06-10-2022 Note PROCEDURE: XR KNEE L T 4V or > HISTORY: Pain in left knee ; chronic left knee pain COMPARISON: XR knee bilateral 05/31/2021 FINDINGS: BONES:Marked narrowing of the medial joint space with suspected gufu-de-xbja articulation. Moderate-marked narrowing of the lateral compartment. Mild narrowing of anterior compartment. Small periarticular osteophytes involving the margins of all 3 compartments. No fracture or dislocation. SOFT TISSUES:No visible soft tissue swelling. EFFUSION:Small joint effusion. OTHER: Negative. IMPRESSION: 1. Marked degenerative joint disease. Stable to minimally progressed. Electronically authenticated by: AKASH KENNY Date: 2022-06-10 19:35 [facility] 05-23-2022 Evaluation note Encounter Date Diagnosis Assessment [...] Pain in left knee (ICD-10 - M25.562) [facility] Other 10-11-2022 NoteCONSULTATION CONSULTATION DATE: 04/23/2022 CHIEF [...] was done for the time being. CC: Bekah Berrios M.D.[id number] NoteCONSULTATION CONSULTATION DATE: 04/04/2022 HISTORY OF PRESENT [...] indicated. Patient agreed with plan of care.[id number] Note CONSULTATION CONSULTATION DATE: 02/14/2022 HISTORY OF [...] time unless otherwise indicated. Patient acknowledges understanding.[id number] NoteCONSULTATION PROCEDURE DATE: 02/14/2022 PREOPERATIVE DIAGNOSIS: Bilateral [...] will be followed up in the office.[id number] Evaluation note* Encounter Date Diagnosis Assessment Notes [...] Pain in left knee (ICD-10 - M25.562) [facility] Other 09-30-2021 Evaluation note* Encounter Date Diagnosis Assessment Notes Treatment Notes Treatment Clinical Notes Mar, Liver hemangioma (ICD-10 - D18.03) Mar, HODGES (nonalcoholic steatohepatitis) (ICD-10 - K75.81) [facility] Other Evaluation + Plan note Future Appointments Appointment Date:11/04/2023 08:30:00 AM Scheduled Provider:LIZ HERNANDEZ PA-C Location:[facility] Appointment Type:URO Office Visit Diagnostic Tests Pending * PSA Total 06/03/23 [facility] History general Narrative - Reported* Type Description Date Medical History DM II Medical History HTN Medical History hyperlipidemia Medical History gout Surgical History knee surgery Surgical History tonsillectomy Surgical History vasectomy Surgical History sinus surgery Surgical History back injections Hospitalization History SEE ABOVE SURGICAL HX [facility] Other Hospital course Narrative No data available for this section [facility] progress note No data available for this section [facility] Summary Purpose Family History No Family History [...] section and content) DATE CREATED AUTHOR 03/29/2021 [facility] DATE CREATED AUTHOR AUTHOR'S ORGANIZ ATION 08/06/2022 [facility] DATE CREATED AUTHOR AUTHOR'S ORGANIZ ATION 12/20/2022 [facility] DATE CREATED AUTHOR AUTHOR'S ORGANIZ ATION 06/22/2023 [facility] DATE CREATED AUTHOR AUTHOR'S ORGANIZ ATION 07/01/2023 [facility] REASON FOR VISIT (unrecogniz ed section and content) PT HERE FOR 4 WEEK FOLLOW UP LIVER LESION LABS WERE ORDERED AT LAST OFFICE VISITBilateral Knee PainRecheck Bilateral Knees Patient Care team informatio n (unrecognized section and content) Personnel Name: BEKAH BERRIOS MD Address: Address: [address] [place] [phone] FOR RECORDS PERTAINING TO PATIENTS WHO ARE [...] BE BASED ON THE PRIMARY CLINICAL RECORDS. [facility] [employer] [facility]. provides no warranty or guarantee of the accuracy or completeness of information in this document.
== END 2023-07-04 10:06 | disposition home or self-care (01) ==
LOC: CT 10:05
PROVIDERS: PCP Family Medicine; Visit Provider Podiatrist Foot & Ankle Surgery
DX: M20.22 Hallux rigidus, left foot (principal)
CPT/HCPCS: 73700

== ENCOUNTER 2023-07-10 13:26 | Outpatient (OUT) | payer BC, SELFPAY ==
[2023-07-10] MEDS: [UNRECOGNIZED DRUG - OTHER] IM (15:00)
--- OUTSIDE RECORDS SUMMARY | 2023-09-05 13:12 | XMS_ITS | CCD ---
Author Name Unknown Address [address] [place] [address] Organization [facility] Care Team Providers Care Denial Management Representative Name Role Phone Frances Racheal Unavailable Alejandra [...] Unavailable ELY, DR RACHEAL Ayala Admitting Unavailable ELY, DR RACHEAL Ayala Consulting Unavailable RUBEN ., DR FELISA Juarez Primary Care Unavailable ELY, DR RACHEAL Ayala Attending Unavailable BERRIOS ., DR FELISA Juarez Primary Care Unavailable TONIO BELL Admitting Unavailable TONIO BELL Attending Unavailable BERRIOS ., DR FELISA Juraez Primary Care Unavailable BOONE ., DR NATHALY [...] Unavailable WEST, DR RACHEAL Ayala Consulting Unavailable RBUEN ., DR FELISA Juarez Primary Care Unavailable [facility] STEW[facility] Attending Unavailable [facility] [place] Admitting Unavailable [facility] [place] STEWART Consulting Unavailable WEST, DR RACHEAL [...] sources) Acetaminophen / oxyCODONE Drug Allergy Unknown [employer] Other (1 source) Acetaminophen / oxyCODONE; Translations: [OXYCODONE-ACETAM INOPHEN] Drug Allergy 3 [facility] Repository (3 sources) oxyCODONE; Translations: [OXYCODONE] Drug Allergy 3 Hyperactive behavior (finding) [facility] Repository (1 source) Acetaminophen / oxyCODONE Drug Allergy [facility] [place] Repository (1 source) oxyCODONE; Translations: [OxyCODONE Hydrochloride] Drug Allergy [facility] Repository Medications Current Medications Medication Drug [...] Resolved: 2 Chronic Other aftercare (1 source) manager terminal (current) use of oral hypoglycemic drugs; Translations: [HALF-WAY USE ORAL HYPOGLYCEMIC DX] Onset: 3 Episodic Other aftercare (1 source) Other custodial (current) drug therapy; Translations: [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 00TIFF Normal [facility] Lab Reportson 06-06-2023 Lab Reports [id number]#1.00 TIFF Normal [facility] RAD - MISCon 06-04-2023 RAD - MISC [id number]#1.00 TIFF Normal [facility] Screenson 06-04-2023 Screens [id number]#1. 00TIFF Normal [facility] Patient Educationon 06-03-20 Patient Education Oncology [...] adds flu (more content not included)... Normal [facility] Urology Office/Clinic Noteon 06-03-2023 Urology Office/Clinic [...] When Contact Information LIZ HERNANDEZ PA-C, URL [address] [place] [address] [phone] Additional Instructions: 6 mos w/ PSA Patient [...] guided bi (more content not included)... Normal [facility] Comment on above: Result Comment: Elec tronically Signed By: LIZ HERNANDEZ PA-C\.br\Date and Time Signed: 06/03/23 11:48 EST\.br\Electronically Co-Signed By: Maru Burr\.br\Date and Time Co-Signed: 06/03/23 10:26 EST Immunization Recordson 04-23 Immunization Records [id number]#1. 00TIFF Normal [facility] Consultation Noteon 04-15-20 Consultation Note [id number]#1.0 0CD:127 Normal [facility] RAD - MISCon 12-24-2022 RAD - MISC [id number]#1.00 CD:127 Normal [facility] XR LSPINE W_OBLS AND FLEX_EX Ton [...] by: RACHEAL GRAVES Date: 2022-12-05 09:46 Normal [facility] Consultation Noteon 12-05-19 Consultation Note [id number]#1.0 0CD:127 Normal [facility] Operative Reporton Operative Report [id number]#1.0 0CD:127 Normal [facility] CBC AUTO DIFFon 10-21-2022 BASO # 0.1 103/ul Normal 0.0-0.1 [facility] Comment on above: Performed By: #### P OCGLUC #### [facility] [address] [address] [address] Juliet García Basophils/100 WBC (Bld) 0.7 % Normal 0.2-2.0 [facility] [place] Comment on above: Performed By: #### P OCGLUC #### [facility] [address] [place] [address] Dr. Juliet García EO # 0.4 103/ul Normal 0.0-0.7 [facility] [place] Comment on above: Performed By: #### P OCGLUC #### [facility] [address] [address] [address] Juliet García Eosinophils/100 WBC (Bld) 5.3 % Normal 0.9-7.0 [facility] [place] Comment on above: Performed By: #### P OCGLUC #### [facility] [address] [place] [address] Dr. Juliet García Erythrocyte distribution width (RBC) [Ratio] 14.0 % Normal 11.0-15.0 [facility] [place] Comment on above: Performed By: #### P OCGLUC #### [facility] [address] [place] [address] Dr. Juliet García Hematocrit (Bld) [Volume fraction] 43.6 % Normal 42.0-54.0 [facility] [place] Comment on above: Performed By: #### P OCGLUC #### [facility] [address] [place] [address] Dr. Juliet García Hemoglobin (Bld) [Mass/Vol] 14.9 g/dL Normal 14.0-18.0 [facility] [place] Comment on above: Performed By: #### P OCGLUC #### [facility] [address] [place] [address] Dr. Juliet García IG # 0.03 10e3/ul Normal 0.00-0.03 [facility] [place] Comment on above: Performed By: #### P OCGLUC #### [facility] [address] [place] [address] Dr. Juliet García IG % 0.4 % Normal 0.0-0.5 [facility] [place] Comment on above: Performed By: #### P OCGLUC #### [facility] [address] [place] [address] Dr. Juliet García LYMPH # 2.0 103/ul Normal 1.2-3.8 [facility] Comment on above: Performed By: #### P OCGLUC #### [facility] [address] [place] [address] Dr. Juliet García Lymphocytes/100 WBC (Bld) 29.3 % Normal 20.5-60.0 [facility] [place] Comment on above: Performed By: #### P OCGLUC #### [facility] [address] [address] [address] Juliet García MANUAL DIFF REQ NO Normal [facility] Comment on above: Performed By: #### P OCGLUC #### [facility] [address] [address] [address] Juliet García MCH (RBC) [Entitic mass] 33.4 pg Normal 25.9-34.0 [facility] [place] Comment on above: Performed By: #### P OCGLUC #### [facility] [address] [address] [address] Juliet García MCHC (RBC) [Mass/Vol] 34.2 g/dL Normal 29.9-35.2 [facility] [place] Comment on above: Performed By: #### P OCGLUC #### [facility] [address] [address] [address] Juliet García MCV (RBC) [Entitic vol] 97.8 fL Critically high 80.0-94.0 [facility] [place] Comment on above: Performed By: #### P OCGLUC #### [facility] [address] [address] [address] Juliet García MONO # 0.7 103/ul Normal 0.3-0.8 [facility] [place] Comment on above: Performed By: #### P OCGLUC #### [facility] [address] [address] [address] Juliet García Monocytes/100 WBC (Bld) 9.9 % Normal 1.7-12.0 [facility] [place] Comment on above: Performed By: #### P OCGLUC #### [facility] [address] [address] [address] Juliet García NEUT # 3.7 103/ul Normal 1.4-6.5 [facility] Comment on above: Performed By: #### P OCGLUC #### [facility] [address] [address] [address] Juliet García Neutrophils/100 WBC (Bld) 54.4 % Normal 43.0-75.0 [facility] Comment on above: Performed By: #### P OCGLUC #### [facility] [address] [address] [address] Juliet García Platelet mean volume (Bld) [Entitic vol] 9.0 fL Critically low 9.5-13.5 [facility] Comment on above: Performed By: #### P OCGLUC #### [facility] [address] [address] [address] Juliet García PLT 211 103/ul Normal 150-450 [facility] [place] Comment on above: Performed By: #### P OCGLUC #### [facility] [address] [address] [address] Juilet García RBC 4.46 106/ul Critically low 4.70-6.10 [facility] Comment on above: Performed By: #### P OCGLUC #### [facility] [address] [address] [address] Juliet García WBC 6.8 103/ul Normal 4.0-11.0 [facility] [place] Comment on above: Performed By: #### P OCGLUC #### [facility] [address] [address] [address] Juliet García POINT OF CARE GLUCOSEon 10-12 Glucose [Mass/Vol] 100 mg/dL Normal 74-106 [facility] Comment on above: Performed By: #### P OCGLUC #### [facility] [address] [address] [address] Juliet García Glucose [Mass/Vol] 94 mg/dL Normal 74-106 [facility] Comment on above: Performed By: #### A 1C #### [facility] [address] [address] [address] Juliet García Lab Reportson 10-14-2022 Lab Reports [id number]#1.0 0CD:127 Normal [facility] Correspo ndenceon 10-14-2022 Outside [facility] Correspondence [id number]#1.0 0CD:127 Normal [facility] PROF CHEM 8 (BAS METB)on Anion gap [Moles/Vol] 14.0 mmol/L Normal [facility] Comment on above: Performed By: #### B MP #### [facility] [address] [address] [address] Juliet García Calcium [Mass/Vol] 9.0 mg/dL Normal 8.5-10.1 [facility] Comment on above: Performed By: #### B MP #### [facility] [address] [address] [address] Juliet García Chloride [Moles/Vol] 107 mmol/L Normal 98-107 [facility] Comment on above: Performed By: #### B MP #### [facility] [address] [address] [address] Juliet García CO2 [Moles/Vol] 28.7 mmol/L Normal 21.0-32.0 [facility] Comment on above: Performed By: #### B MP #### [facility] [address] [address] [address] Juliet García Creatinine [Mass/Vol] 1.41 mg/dL Critically high 0.70-1.30 [facility] Comment on above: Performed By: #### B MP #### [facility] [address] [address] [address] Juliet García EGFR-AF MARSHALLESE >60 Normal >=60 [facility] Comment on above: Performed By: #### B MP #### [facility] [address] [address] [address] Juliet García EGFR-NON AF MARSHALLESE 50 mL/min/1.73m2 Critically low >=60 [facility] Comment on above: Performed By: #### B MP #### [facility] [address] [address] [address] Juliet García Glucose [Mass/Vol] 95 mg/dL Normal 74-106 [facility] Comment on above: Performed By: #### B MP #### [facility] [address] [address] [address] Juliet García Potassium [Moles/Vol] 4.7 mmol/L Normal 3.5-5.1 [facility] Comment on above: Performed By: #### B MP #### [facility] [address] [address] [address] Juliet García Sodium [Moles/Vol] 145 mmol/L Normal 136-145 [facility] Comment on above: Performed By: #### B MP #### [facility] [address] [address] [address] Juliet García Urea nitrogen [Mass/Vol] 25.0 mg/dL Critically high 7.0-18.0 [facility] Comment on above: Performed By: #### B MP #### [facility] [address] [address] [address] Juliet García Urea nitrogen/Creatinine [Mass ratio] 17.7 mg/mg Normal [facility] Comment on above: Performed By: #### B MP #### [facility] [address] [address] [address] Juliet García Office Visiton 07-31-2022 Follow-up visit [id number] Carlos Locke 1955 M Date Provider Department Center 07/31/2022 BENTLEY MENDOZA [facility] Family History Problem Relation Age of Onset Stroke Father Family Status - Relation Status Age at Father Level of Service:60747 AL OFFICE/OUTPATIENT ESTABLISHED MOD MDM 30-39 MIN Reason for Visit and Comments: Hyperlipidemia [182] Hypertension [663888] history of PE [Other] Normal [facility] CULTURE WOUNDon 07-24-2022 CULTURE WOUND Culture Observations : No growth of anaerobes at 72 hours. Isolate 1 Stenotrophomonas maltophilia Moderate growth of ORGANISM 1 Stenotrophomonas maltophilia ANTIBIOTIC M.I.C RX STATUS Levofloxacin 1 S F Trimethoprim/Sulfameth oxazole <=20 S F Normal [facility] Comment on above: Performed By: #### W OUNDCX ####[facility] [address] [place], [place] [address]CqDr. Juliet García GLYCOHEMOGLOBIN A1Con 2022 ADA RECOMMENDATION SEE BELOW Normal [facility] Comment on above: Result Comment: ADA RECOMMENDED LIMIT 4.0 - 6.0 ADA THERAPEUTIC TARGET < 7.0 ACTION SUGGESTED > 7.0 Performed By: #### A 1C #### [facility] [address] [address] [address] Juliet García Glucose [Mass/Vol] 111 mg/dL Normal [facility] Comment on above: Performed By: #### A 1C #### [facility] [address] [address] [address] Juliet García HbA1c (Bld) [Mass fraction] 5.5 % Normal 4.5-6.2 [facility] [place] Comment on above: Performed By: #### A 1C #### [facility] [address] [address] [address] Juliet García ECHOCARDIO M/2D COMPLETEon 1 08-29-2021 ECHOCARDIO M/2D COMPLETE Patient: CARLOS LOCKE Exam Date: 06/28/2022 : 1955 Gender:M Ordering : DR LOLY BARNARD M.D. Admission #: [id number] Family : Order #: [id number] CLICK HERE TO VIEW EXAM ECHOCARDIOGRAM REPORT [...] M.D. on 07/04/2022 at 13:38 Normal [facility] URIC ACID SERUMon 06-10-2022 Urate [Mass/Vol] 6.9 mg/dL Normal 3.5-7.2 [facility] Comment on above: Performed By: #### A 1C #### [facility] [address] [place] [address] Dr. Juliet García XR KUB 1 VIEWon [...] RACHEAL GRAVES Date: 2022-05-28 07:31 Normal [facility] CBC AUTO DIFFon 05-03-2022 BASO # 0.1 103/ul Normal 0.0-0.1 [facility] [place] Comment on above: Performed By: #### C BC #### [facility] [address] [place] [address] Dr. Juliet García Basophils/100 WBC (Bld) 0.9 % Normal 0.2-2.0 [facility] Comment on above: Performed By: #### C BC #### [facility] [address] [place] [address] Dr. Juliet García EO # 0.4 103/ul Normal 0.0-0.7 [facility] Comment on above: Performed By: #### C BC #### [facility] [address] [place] [address] Dr. Juliet García Eosinophils/100 WBC (Bld) 5.2 % Normal 0.9-7.0 [facility] Comment on above: Performed By: #### C BC #### [facility] [address] [place] [address] Dr. Juliet García Erythrocyte distribution width (RBC) [Ratio] 13.6 % Normal 11.0-15.0 [facility] [place] Comment on above: Performed By: #### C BC #### [facility] [address] [place] [address] Dr. Juliet García Hematocrit (Bld) [Volume fraction] 40.5 % Critically low 42.0-54.0 [facility] [place] Comment on above: Performed By: #### C BC #### [facility] [address] [place] [address] Dr. Juliet García Hemoglobin (Bld) [Mass/Vol] 13.7 g/dL Critically low 14.0-18.0 [facility] [place] Comment on above: Performed By: #### C BC #### [facility] [address] [place] [address] Dr. Juliet García IG # 0.02 10e3/ul Normal 0.00-0.03 [facility] [place] Comment on above: Performed By: #### C BC #### [facility] [address] [place] [address] Dr. Juliet García IG % 0.3 % Normal 0.0-0.5 [facility] [place] Comment on above: Performed By: #### C BC #### [facility] [address] [place] [address] Dr. Juliet García LYMPH # 1.9 103/ul Normal 1.2-3.8 [facility] [place] Comment on above: Performed By: #### C BC #### [facility] [address] [place] [address] Dr. Juliet García Lymphocytes/100 WBC (Bld) 27.7 % Normal 20.5-60.0 [facility] Comment on above: Performed By: #### C BC #### [facility] [address] [place] [address] Dr. Juliet García MANUAL DIFF REQ NO Normal [facility] Comment on above: Performed By: #### C BC #### [facility] [address] [place] [address] Dr. Juliet García MCH (RBC) [Entitic mass] 33.3 pg Normal 25.9-34.0 [facility] Comment on above: Performed By: #### C BC #### [facility] [address] [place] [address] Dr. Juliet García MCHC (RBC) [Mass/Vol] 33.8 g/dL Normal 29.9-35.2 [facility] Comment on above: Performed By: #### C BC #### [facility] [address] [place] [address] Dr. Juliet García MCV (RBC) [Entitic vol] 98.3 fL Critically high 80.0-94.0 [facility] Comment on above: Performed By: #### C BC #### [facility] [address] [place] [address] Dr. Juliet García MONO # 0.7 103/ul Normal 0.3-0.8 [facility] [place] Comment on above: Performed By: #### C BC #### [facility] [address] [place] [address] Dr. Juliet García Monocytes/100 WBC (Bld) 9.9 % Normal 1.7-12.0 [facility] Comment on above: Performed By: #### C BC #### [facility] [address] [place] [address] Dr. Juliet García NEUT # 3.8 103/ul Normal 1.4-6.5 [facility] Comment on above: Performed By: #### C BC #### [facility] [address] [place] [address] Dr. Juliet García Neutrophils/100 WBC (Bld) 56.0 % Normal 43.0-75.0 [facility] Comment on above: Performed By: #### C BC #### [facility] [address] [place] [address] Dr. Juliet García Platelet mean volume (Bld) [Entitic vol] 9.0 fL Critically low 9.5-13.5 [facility] Comment on above: Performed By: #### C BC #### [facility] [address] [place] [address] Dr. Juliet García PLT 201 103/ul Normal 150-450 [facility] Comment on above: Performed By: #### C BC #### [facility] [address] [place], [place] [id number] Dr. Juliet García RBC 4.12 106/ul Critically low 4.70-6.10 [facility] Comment on above: Performed By: #### C BC #### [facility] [address] [address] [address] Juliet García WBC 6.7 103/ul Normal 4.0-11.0 [facility] Comment on above: Performed By: #### C BC #### [facility] [address] [place] [address] Dr. Juliet García GLYCOHEMOGLOBIN A1Con 2021 ADA RECOMMENDATION SEE BELOW Normal [facility] Comment on above: Result Comment: ADA RECOMMENDED LIMIT 4.0 - 6.0 ADA THERAPEUTIC TARGET < 7.0 ACTION SUGGESTED > 7.0 Performed By: #### A 1C #### [facility] [address] [place] [address] Dr. Juliet García Glucose [Mass/Vol] 108 mg/dL Normal [facility] Comment on above: Performed By: #### A 1C #### [facility] [address] [place] [address] Dr. Juliet García HbA1c (Bld) [Mass fraction] 5.4 % Normal 4.5-6.2 [facility] [place] Comment on above: Performed By: #### A 1C #### [facility] [address] [place] [address] Dr. Juliet García LIPID PROFILEon 05-03-2022 CHOL-HDL RATIO NORM SEE BELOW Normal [facility] Comment on above: Result Comment: 3.3 - 4.4 LOW RISK 4.4 - 7.1 AVERAGE RISK 7.1 - 11.0 MODERATE RISK >11.0 HIGH RISK Performed By: #### L IPID, CMP #### [facility] [address] [place] [address] Dr. Juliet García Cholesterol [Mass/Vol] 154 mg/dL Normal <=200 [facility] [place] Comment on above: Performed By: #### L IPID, CMP #### [facility] [address] [place] [address] Dr. Juliet García Cholesterol in HDL [Mass/Vol] 29 mg/dL Critically low 40-60 [facility] [place] Comment on above: Performed By: #### L IPID, CMP #### [facility] [address] [address] [address] Juliet García Cholesterol in LDL [Mass/Vol] 64.2 mg/dL Normal [facility] [place] Comment on above: Performed By: #### L IPID, CMP #### [facility] [address] [address] [address] Juliet García Cholesterol.total/Ch olesterol in HDL [Mass ratio] 5.3 {ratio} Normal [facility] Comment on above: Performed By: #### L IPID, CMP #### [facility] [address] [address] [address] Juliet García HDL NORMAL > or = 60 mg/dl - LO W CARDIOVASCULAR RISK <40 mg/dl - HIGH CARDIOVASCULAR RISK Normal [facility] [place] Comment on above: Performed By: #### L IPID, CMP #### [facility] [address] [place] [address] Dr. Juliet García LDL CALC NORMAL SEE BELOW Normal [facility] Comment on above: Result Comment: <100 mg/dl OPTIMAL 100 - 129 mg/dl NEAR OR ABOVE OPTIMAL 130 - 159 mg/dl BORDERLINE HIGH 160 - 189 mg/dl HIGH >190 mg/dl VERY HIGH Performed By: #### L IPID, CMP #### [facility] [address] [place] [address] Dr. Juliet García Triglyceride [Mass/Vol] 304 mg/dL Critically high <=150 [facility] Comment on above: Performed By: #### L IPID, CMP #### [facility] [address] [place] [address] Dr. Juliet García VLDL CALC 60.8 mg/dL Normal [facility] Comment on above: Performed By: #### L IPID, CMP #### [facility] [address] [place] [address] Dr. Juliet García PROF 14(COMP METB)on 022 Albumin [Mass/Vol] 3.7 g/dL Normal 3.4-5.0 [facility] Comment on above: Performed By: #### L IPID, CMP #### [facility] [address] [address] [address] Juliet García Albumin/Globulin [Mass ratio] 1.1 {ratio} Normal [facility] [facility] Comment on above: Performed By: #### L IPID, CMP #### [facility] [address] [address] [address] Juliet García ALP [Catalytic activity/Vol] 87 U/L Normal 46-116 [facility] Comment on above: Performed By: #### L IPID, CMP #### [facility] [address] [address] [address] Juliet García ALT [Catalytic activity/Vol] 52 U/L Normal 16-63 [facility] Comment on above: Performed By: #### L IPID, CMP #### [facility] [address] [address] [address] Juliet García Anion gap [Moles/Vol] 11.5 mmol/L Normal [facility] Comment on above: Performed By: #### L IPID, CMP #### [facility] [address] [address] [address] Juliet García AST [Catalytic activity/Vol] 27 U/L Normal 15-37 [facility] Comment on above: Performed By: #### L IPID, CMP #### [facility] [address] [address] [address] Juliet García Bilirubin [Mass/Vol] 0.4 mg/dL Normal 0.2-1.0 [facility] Comment on above: Performed By: #### L IPID, CMP #### [facility] [address] [address] [address] Juliet García Calcium [Mass/Vol] 8.7 mg/dL Normal 8.5-10.1 [facility] Comment on above: Performed By: #### L IPID, CMP #### [facility] [address] [address] [address] Juliet García Chloride [Moles/Vol] 106 mmol/L Normal 98-107 [facility] Comment on above: Performed By: #### L IPID, CMP #### [facility] [address] [address] [address] Juliet García CO2 [Moles/Vol] 28.2 mmol/L Normal 21.0-32.0 [facility] Comment on above: Performed By: #### L IPID, CMP #### [facility] [address] [address] [address] Juliet García Creatinine [Mass/Vol] 1.21 mg/dL Normal 0.70-1.30 [facility] Comment on above: Performed By: #### L IPID, CMP #### [facility] [address] [address] [address] Juliet García EGFR-AF MARSHALLESE >60 Normal >=60 [facility] Comment on above: Performed By: #### L IPID, CMP #### [facility] [address] [address] [address] Juliet García EGFR-NON AF MARSHALLESE =60 Normal >=60 [facility] Comment on above: Performed By: #### L IPID, CMP #### [facility] [address] [address] [address] Juliet García Globulin (S) [Mass/Vol] 3.4 g/dL Normal [facility] Comment on above: Performed By: #### L IPID, CMP #### [facility] [address] [address] [address] Juliet García Glucose [Mass/Vol] 100 mg/dL Normal 74-106 [facility] Comment on above: Performed By: #### L IPID, CMP #### [facility] [address] [address] [address] Juliet García Potassium [Moles/Vol] 4.7 mmol/L Normal 3.5-5.1 [facility] Comment on above: Performed By: #### L IPID, CMP #### [facility] [address] [address] [address] Juliet García Protein [Mass/Vol] 7.1 g/dL Normal 6.4-8.2 [facility] Comment on above: Performed By: #### L IPID, CMP #### [facility] [address] [place], [place] [address] Dr. Juliet García Sodium [Moles/Vol] 141 mmol/L Normal 136-145 [facility] Comment on above: Performed By: #### L IPID, CMP #### [facility] [address] [address] [address] Juliet García Urea nitrogen [Mass/Vol] 23.0 mg/dL Critically high 7.0-18.0 [facility] Comment on above: Performed By: #### L IPID, CMP #### [facility] [address] [address] [address] Juliet García Urea nitrogen/Creatinine [Mass ratio] 19.0 mg/mg Normal [facility] Comment on above: Performed By: #### L IPID, CMP #### [facility] [address] [address] [address] Juliet García VC CONSULT FOLLOWUPon 2021 VC CONSULT FOLLOWUP Patient: CARLOS LOCKE Exam Date: 04/08/2022 : 1955 Gender:M Ordering : DR RACHEAL GRAVES M.D. Admission #: [id number] Family : Order #: [id number] CLICK HERE [...] Graves MD on 04/08/2022 at 11:30 Normal [facility] VC EXT VENOUS RT LIMITEDon 0 04-08-2022 VC EXT VENOUS RT LIMITED Patient: CARLOS LOCKE Exam Date: 04/08/2022 : 1955 Gender:M Ordering : DR RACHEAL GRAVES M.D. Admission #: [id number] Family : Order #: [id number] CLICK HERE TO VIEW EXAM RADIOLOGY REPORT [...] right leg incompetent varicose veins Dictated by: Rachael Graves MD on 04/08/2022 at 11:31 Approved by: Racheal Graves MD on 04/08/2022 at 11:31 Normal [facility] VC INJ FOAM SCLERO W US MLTI on 04-03-2022 VC INJ FOAM SCLERO W US MLTI Patient: CARLOS LOCKE Exam Date: 04/03/2022 : 1955 Gender:M Ordering : DR RACHEAL GRAVES M.D. Admission #: [id number] Family : DR ANDERSEN EtelvinaRusty BOONE . Order #: [id number] CLICK HERE TO VIEW EXAM RADIOLOGY REPORT [...] av (more content not included)... Normal [facility] VC CONSULT FOLLOWUPon 2021 VC CONSULT FOLLOWUP Patient: CARLOS LOCKE Exam Date: 03/25/2022 : 1955 Gender:M Ordering : DR RACHEAL GRAVES M.D. Admission #: [id number] Family : Order #: [id number] CLICK HERE TO VIEW EXAM RADIOLOGY REPORT [...] Kenny M.D. on 03/25/2022 at 08:41 Normal [facility] VC EXT VENOUS RT LIMITEDon 0 03-25-2022 VC EXT VENOUS RT LIMITED Patient: CARLOS LOCKE Exam Date: 03/25/2022 : 1955 Gender:M Ordering : DR RACHEAL GRAVES M.D. Admission #: [id number] Family : Order #: [id number] CLICK HERE TO VIEW EXAM RADIOLOGY REPORT [...] Kenny M.D. on 03/25/2022 at 08:39 Normal [facility] VC ENDOVENOUS ABL 1ST V RTon 03-19-2022 VC ENDOVENOUS ABL 1ST V RT Patient: CARLOS LOCKE Exam Date: 03/19/2022 : 1955 Gender:M Ordering : DR RACHEAL GRAVES M.D. Admission #: [id number] Family : Order #: [id number] CLICK HERE TO VIEW EXAM RADIOLOGY REPORT [...] Racheal Graves MD on 03/19/2022 at 08:58 [facility] VC CONSULT FOLLOWUPon 2021 VC CONSULT FOLLOWUP Patient: CARLOS LOCKE Exam Date: 02/18/2022 : 1955 Gender:M Ordering : DR RACHEAL GRAVES M.D. Admission #: [id number] Family : Order #: [id number] CLICK HERE TO VIEW EXAM RADIOLOGY REPORT [...] Graves MD on 02/18/2022 at 09:45 Normal [facility] VC EXT VENOUS LT LIMITEDon 0 02-18-2022 VC EXT VENOUS LT LIMITED Patient: CARLOS LOCKE Exam Date: 02/18/2022 : 1955 Gender:M Ordering : DR RACHEAL GRAVES M.D. Admission #: [id number] Family : Order #: [id number] CLICK HERE TO VIEW EXAM RADIOLOGY REPORT [...] varicose veins remain off of SSV and linen aide mid posterior calf. *Exam performed in accordance with [facility] practice guidelines- Peripheral venous ultrasound, October 07, 2009. CONCLUSION: Post ablation occlusion of left leg varicose veins Dictated by: Racheal Graves MD on 02/18/2022 at 09:32 Approved by: Racheal Graves MD on 02/18/2022 at 09:36 [facility] VC INJ FOAM SCLERO W US MLTI on 02-13-2022 VC INJ FOAM SCLERO W US MLTI Patient: CARLOS LOCKE Exam Date: 02/13/2022 : 1955 Gender:M Ordering : DR RACHEAL GRAVES M.D. Admission #: [id number] Family : Order #: [id number] CLICK HERE TO VIEW EXAM RADIOLOGY REPORT [...] Kenny M.D. on 02/13/2022 at 10:15 Normal [facility] VC CONSULT FOLLOWUPon 2021 VC CONSULT FOLLOWUP Patient: CARLOS LOCKE Exam Date: 02/06/2022 : 1955 Gender:M Ordering : DR RACHEAL GRAVES M.D. Admission #: [id number] Family : Order #: [id number] CLICK HERE TO VIEW EXAM RADIOLOGY REPORT [...] Kenny M.D. on 02/06/2022 at 09:53 Normal [facility] VC EXT VENOUS LT LIMITEDon 0 02-06-2022 VC EXT VENOUS LT LIMITED Patient: CARLOS LOCKE Exam Date: 02/06/2022 : 1955 Gender:M Ordering : DR RACHEAL GRAVES M.D. Admission #: [id number] Family : Order #: [id number] CLICK HERE TO VIEW EXAM RADIOLOGY REPORT [...] Kenny M.D. on 02/06/2022 at 09:49 Normal [facility] GLYCOHEMOGLOBIN A1Con 2021 ADA RECOMMENDATION SEE BELOW Normal [facility] Comment on above: Result Comment: ADA RECOMMENDED LIMIT 4.0 - 6.0 ADA THERAPEUTIC TARGET < 7.0 ACTION SUGGESTED > 7.0 Performed By: #### A 1C #### [facility] [address] [address] [address] Juliet García Glucose [Mass/Vol] 108 mg/dL Normal [facility] Comment on above: Performed By: #### A 1C #### [facility] [address] [address] [address] Juliet García HbA1c (Bld) [Mass fraction] 5.4 % Normal 4.5-6.2 [facility] Comment on above: Performed By: #### A 1C #### [facility] [address] [address] [address] Juliet García PROF 14(COMP METB)on 022 Albumin [Mass/Vol] 4.0 g/dL Normal 3.4-5.0 [facility] Comment on above: Performed By: #### C MP ####[facility] [address] [address]DrRusty García Albumin/Globulin [Mass ratio] 1.2 {ratio} Normal [facility] Comment on above: Performed By: #### C MP ####[facility] [address] [address]DrRusty García ALP [Catalytic activity/Vol] 89 U/L Normal 46-116 [facility] Comment on above: Performed By: #### C MP ####[facility] [address] [address]DrRusty García ALT [Catalytic activity/Vol] 81 U/L Critically high 16-63 [facility] Comment on above: Performed By: #### C MP ####[facility] [address] [address]DrRusty García Anion gap [Moles/Vol] 13.6 mmol/L Normal [facility] Comment on above: Performed By: #### C MP ####[facility] [address] [address]DrRusty García AST [Catalytic activity/Vol] 32 U/L Normal 15-37 [facility] Comment on above: Performed By: #### C MP ####[facility] [address] [id number] García Bilirubin [Mass/Vol] 0.5 mg/dL Normal 0.2-1.0 [facility] Comment on above: Performed By: #### C MP ####[facility] [address] [address]DrRusty García Calcium [Mass/Vol] 8.9 mg/dL Normal 8.5-10.1 [facility] Comment on above: Performed By: #### C MP ####[facility] [address] [address]Dr. Juliet García Chloride [Moles/Vol] 106 mmol/L Normal 98-107 [facility] Comment on above: Performed By: #### C MP ####[facility] [address] [id number]. Juliet García CO2 [Moles/Vol] 27.1 mmol/L Normal 21.0-32.0 [facility] Comment on above: Performed By: #### C MP ####[facility] [address] [address]Dr. Juliet Ricky Creatinine [Mass/Vol] 1.46 mg/dL Critically high 0.70-1.30 [facility] Comment on above: Performed By: #### C MP ####[facility] [address] [place], [place] [address]Dr. Juliet Ricky EGFR-AF MARSHALLESE 59 mL/min/1.73m2 Critically low >=60 [facility] Comment on above: Performed By: #### C MP ####[facility] [address] [place], [place] [address]Dr. Juliet Ricky EGFR-NON AF MARSHALLESE 48 mL/min/1.73m2 Critically low >=60 [facility] Comment on above: Performed By: #### C MP ####[facility] [address] [address]Dr. Juliet Ricky Globulin (S) [Mass/Vol] 3.4 g/dL Normal [facility] Comment on above: Performed By: #### C MP ####[facility] [address] [address]Dr. Juliet Ricky Glucose [Mass/Vol] 93 mg/dL Normal 74-106 [facility] Comment on above: Performed By: #### C MP ####[facility] [address] [address]Dr. Juliet García Potassium [Moles/Vol] 4.7 mmol/L Normal 3.5-5.1 [facility] Comment on above: Performed By: #### C MP ####[facility] [address] [id number]. Juliet García Protein [Mass/Vol] 7.4 g/dL Normal 6.4-8.2 [facility] Comment on above: Performed By: #### C MP ####[facility] [address] [address]Dr. Juliet García Sodium [Moles/Vol] 142 mmol/L Normal 136-145 [facility] Comment on above: Performed By: #### C MP ####[facility] [address] [address]Dr. Juliet García Urea nitrogen [Mass/Vol] 25.0 mg/dL Critically high 7.0-18.0 [facility] Comment on above: Performed By: #### C MP ####[facility] [address] [address]Dr. Juliet García Urea nitrogen/Creatinine [Mass ratio] 17.1 mg/mg Normal [facility] Comment on above: Performed By: #### C MP ####[facility] [address] [address]Dr. Juliet García VC ENDOVENOUS ABL 1ST V LTon 01-30-2022 VC ENDOVENOUS ABL 1ST V LT Patient: CARLOS LOCKE Exam Date: 01/30/2022 : 1955 Gender:M Ordering : DR RACHEAL GRAVES M.D. Admission #: [id number] Family : Order #: [id number] CLICK HERE TO VIEW EXAM RADIOLOGY REPORT [...] Kenny M.D. on 01/30/2022 at 12:00 Normal [facility] POINT OF CARE GLUCOSEon 07 Glucose [Mass/Vol] 84 mg/dL Normal 74-106 [facility] Comment on above: Performed By: #### P OCGLUC #### [facility] [address] [address] [address] Juliet García VC COMP CONSULTATIONon 01-21 VC COMP CONSULTATION Patient: CARLOS LOCKE Exam Date: 01/21/2022 : 1955 Gender:M Ordering : DR RACHEAL GRAVES M.D. Admission #: [id number] Family : Order #: [id number] CLICK HERE TO VIEW EXAM RADIOLOGY REPORT [...] for years. The patient is retired from [employer] after working 42 years. The patient denies [...] additional information, and this was performed [facility]. See separate history and physical for medication [...] incompetent branch saphenous tributary/varicose veins. Bilateral incompetent linen aide veins. PHYSICAL EXAM: The right leg demonstrates [...] pulses were present bilaterally. IMPRESSION: 1. Bilateral cqme-on-mcnsmyol great saphenous vein and mild right small [...] MD on 01/21/2022 at 11:46 Normal [facility] VC VENOUS REFLUX MARIE LMTon 0 01-21-2022 VC VENOUS REFLUX MARIE LMT Patient: CARLOS LOCKE Exam Date: 01/21/2022 : 1955 Gender:M Ordering : DR RACHEAL GRAVES M.D. Admission #: [id number] Family : DR ANDERSEN EtelvinaRusty BOONE . Order #: [id number] CLICK HERE TO VIEW EXAM RADIOLOGY REPORT [...] Compressibility: Normal. Flow: Mild deep venous reflux. 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 Prox/med calf [...] MD on 01/21/2022 at 10:40 Normal [facility] POINT OF CARE GLUCOSEon 12-13 Glucose [Mass/Vol] 87 mg/dL Normal 74-106 [facility] Comment on above: Performed By: #### P OCGLUC ####[facility] [address] [place], [place] [address]Tc. Juliet García SURGICAL PATHOLOGYon 021 SURGICAL PATHOLOGY Specimen #: [id number] Submitting Physician: JULIET GARCÍA M.D. FINAL DIAGNOSIS [place], [place]; [id number] (12/07/2020) Liver, mass , biopsy (A1, A2, [...] do not hesitate to contact us at [phone] with questions or if additional follow up information becomes available. This case was reviewed in conjunction with the GI pathology fellow, Apoorva Diallo MD. The following stains were performed at the [facility] in order to further characterize [...] in-situ hybridization tests have been determined by [facility]'s [facility] [place] [facility] in a manner consistent with CLIA requirements. One or more of these tests have not been cleared or approved by the FDA. [facility] is regulated under CLIA as qualified to perform high-complexity testing. These tests are used for clinical purposes. They should not be regarded as investigational or for research. Nicolasa Cheema M.D. (Electronic Signature) _ SPECIMEN SUBMITTED A: 12 slides [id number] CLINICAL DATA Mass Date of Report: 03/27/2021 Date of Procedure: 03/16/2021 Date of Receipt: 03/15/2021 Submitted by: JULIET GARCÍA M.D. Location: Diagnostic interpretation performed at [facility], [address] [place] [address]. CLIA Number: [id number] Normal [facility] Comment on above: Performed By: #### S #### See report for performing lab information. Vital Signs Date Time Vital Sign Value Performing Clinician Facility 06-03-2023 09:59-0500 Blood Pressure Location LIZ HERNANDEZ [facility] 06-03-2023 09:59-0500 Diastolic blood pressure 74 mm[Hg] LIZ HERNANDEZ [facility] 06-03-2023 09:59-0500 Heart rate 70 /min LIZ HERNANDEZ [facility] 06-03-2023 09:59-0500 Respiratory rate 16 /min LIZ HERNANDEZ [facility] 06-03-2023 09:59-0500 Systolic blood pressure 138 mm[Hg] LIZ HERNANDEZ [facility] 05-23-2022 09:45-0500 Body height 187.96 cm Alejandra Olexa Other [facility] Other 05-23-2022 09:45-0500 Body mass index (BMI) [Ratio] 40.57 kg/m2 Alejandra Olexa Other [facility] Other 05-23-2022 09:45-0500 Body weight 143.34 kg Alejandra Olexa Other [facility] Other 08-07-2021 14:15-0500 Body height 187.96 cm Alejandra Olexa Other [facility] Other 08-07-2021 14:15-0500 Body mass index (BMI) [Ratio] 40.64 kg/m2 Alejandra Olexa Other [facility] Other 08-07-2021 14:15-0500 Body weight 143.61 kg Alejandra Olexa Other [facility] Other 04-12-2021 10:30-0400 Body height 187.96 cm Racheal Daniels Other [facility] Other 04-12-2021 10:30-0400 Body mass index (BMI) [Ratio] 41.75 kg/m2 Racheal Daniels Other [facility] Other 04-12-2021 10:30-0400 Body weight 147.51 kg Racheal Daniels Other [facility] Other 04-12-2021 10:30-0400 Diastolic blood pressure 71 mm[Hg] Racheal Daniels Other [facility] Other 04-12-2021 10:30-0400 Systolic blood pressure 131 mm[Hg] Racheal Daniels Other [facility] Other Encounters Encounter Date Encounter Type Care Provider Facility Start: 11-04-2023 ambulatory PA-C LIZ HERNANDEZ Facility:[facility] Start: 07-23-2023 End: 07-23-2023 ambulatory HARINDER RUGGIERO Not Available Start: 06-30-2023 End: 07-01-2023 ambulatory Donaldo Sparrow MD Facility:[facility] Start: 06-03-2023 End: 06-04-2023 ambulatory VLADISLAVC LIZ HERNANDEZ Facility:[facility] Start: 06-03-2023 End: 06-03-2023 Patient encounter procedure LIZ HERNANDEZ [facility] Start: 01-06-2023 End: 01-07-2023 ambulatory Donaldo Sparrow MD Facility:[facility] Start: 12-05-2022 End: 12-06-[address] FELISA [...] Encounter for preprocedural cardiovascular examination [facility] Start: 10-18-2022 Encounter for preprocedural laboratory examination [facility] Latham [facility] Start: 10-16-[address] FELISA BERRIOS . [...] . Facility:[facility] Start: 09-06-2022 ambulatory FELISA BERRIOS Facility:[facility] Start: 08-26-2022 End: 08-27-[address] FELISA BERRIOS . Facility:[facility] Start: 08-06-2022 End: 08-07-2022 ambulatory TONIO BELL Facility:[facility] Start: 07-31-2022 End: 07-31-2022 ambulatory BENTLEY MACK [facility] Start: 07-31-2022 End: 08-01-[address] NATHALY [...] 05-23-2022 End: 05-23-2022 ambulatory Alejandra Cain Other [facility] Other Start: 05-23-2022 Office outpatient vi sit 15 minutes Alejandra Cain [facility] Start: 05-03-2022 End: 05-04-[address] [...] Start: 01-22-2022 End: 01-22-[address] FELISA BERIROS . Facility:[facility] Start: 01-21-2022 End: 01-22-[address] FELISA BERRIOS . Facility:[facility] Start: 01-08-2022 End: 01-08-[address] FELISA BERRIOS . Facility:[facility] Start: 08-07-2021 End: 08-07-2021 ambulatory Alejandra Cain Other [facility] Other Start: 08-07-2021 Office outpatient vi sit 15 minutes Alejandra Cain [facility] Start: 04-12-2021 Office outpatient vi sit 15 minutes Racheal Daniels [facility] Procedures Date Procedure Procedure Detail Performing Clinician Start: 05-03-[address] RACHEAL GRAVES Comment on above: Performed By: #### P SAD #### [facility] [address] [place] [address] Dr. Juliet García Start: 12-07-2020 CT guided biopsy NOLAFELTON SIMONS DAVID Comment on above: LIVER. NO SEDATION. Arthroscopy of knee LIZ HERNANDEZ Bilateral cataracts (disorder) LIZ HERNANDEZ H/O: vasectomy LIZ De Jesus Titan[employer] (substance) JOSE Hazel DAVID Comment on above: Toe Tonsillectomy LIZ HERNANDEZ Immunizations Immunization Date Immunization Notes Care Provider Fa eitanty 04-20-2023 SARS-CoV-2 mRNA (tozinameran 5y-11y) vaccine LIZ HERNANDEZ [facility] Comment on above: Result Comment: covi d 19 mRNA ([facility]vs) 04-17-2022 influenza virus vacc ine, unspecified formulation LIZ HERNANDEZ [facility] 03-23-2022 SARS-CoV-2 (COVID-19 ) [id number] LIZ HERNANDEZ [facility] 10-23-2021 SARS-CoV-2 mRNA (rgulxrlhben-jouu-bufatx e) vaccine LIZ DAVID [facility] 05-27-2021 pneumococcal polysaccharide vaccine, 23 valent LIZ DAVID [facility] 05-06-2021 SARS-CoV-2 (COVID-19 ) mRNA BNT-162b2 vax LIZ DAVID [facility] Comment on above: Result Comment: 2021: [id number] 04-07-2021 influenza virus vacc ine, unspecified formulation LIZ DAVID [facility] 09-18-2020 SARS-CoV-2 (COVID-19 ) mRNA BNT-938n2 vax LIZ DAVID [facility] 04-19-2020 influenza virus vacc ine, unspecified formulation LIZ DAVID [facility] 04-15-2020 influenza virus vacc ine, unspecified formulation LIZ DAVID [facility] 04-20-2018 influenza virus vacc ine, unspecified formulation LIZ DAVID [facility] 03-24-2018 influenza virus vacc ine, unspecified formulation LIZ DAVID [facility] 05-01-2013 influenza virus vacc ine, unspecified formulation LIZ DAVID [facility] Payers Date Payer Category Payer Medicare 2022 Unknown [id number] 2022 Unknown 2021 Medicare [id number] 2019 Unknown [id number] 2. [id number] 1959 Medicare [id number] 1955 Unknown [id number] 2.16.84 [id number] 1955 Unknown [id number] 2.16.84 0.1.212012.3.579.2.593 1955 Unknown [id number] 2.16.84 0.1.895854.3.579.2.593 1955 Unknown [id number] 2.16.84 0.1.376162.3.579.2.593 1955 Unknown [id number] 2.16.84 0.1.627519.3.579.2.593 1955 Unknown [id number] 2.16.84 0.1.222808.3.579.2.593 1955 Unknown [id number] 2.16.84 0.1.090751.3.579.2.593 1955 Unknown [id number] 2.16.84 0.1.015766.3.579.2.593 1955 Unknown [id number] 2.16.84 0.1.605594.3.579.2.593 1955 Unknown [id number] 2.16.84 0.1.665187.3.579.2.593 1955 Unknown [id number] 2.16.84 0.1.711719.3.579.2.593 1955 Unknown [id number] 2.16.84 0.1.538946.3.579.2.593 1956 Unknown [id number] 2.16.84 0.1.871342.3.579.2.593 1956 Unknown [id number] 2.16.84 0.1.804777.3.579.2.593 1956 Unknown [id number] 2.16.84 0.1.731548.3.579.2.593 1956 Unknown [id number] 2.16.84 0.1.743233.3.579.2.593 1956 Unknown [id number] 2.16.84 0.1.216283.3.579.2.593 1956 Unknown [id number] 2.16.84 0.1.252155.3.579.2.593 1956 Unknown [id number] 2.16.84 0.1.612055.3.579.2.593 1956 Unknown [id number] 2.16.84 0.1.198581.3.579.2.593 1956 Unknown [id number] 2.16.84 0.1.397201.3.579.2.593 1956 Unknown [id number] 2.16.84 0.1.750010.3.579.2.593 1956 Unknown [id number] 2.16.84 0.1.187500.3.579.2.593 1956 Unknown [id number] 2.16.84 0.1.030591.3.579.2.593 1956 Unknown [id number] 2.16.84 0.1.131168.3.579.2.593 1956 Unknown [id number] 2.16.84 0.1.604168.3.579.2.593 1956 Unknown [id number] 2.16.84 0.1.526284.3.579.2.593 1956 Unknown [id number] 2.16.84 0.1.554121.3.579.2.593 1956 Unknown [id number] 2.16.84 0.1.438932.3.579.2.593 1956 Unknown [id number] 2.16.84 0.1.316493.3.579.2.593 1956 Unknown [id number] 2.16.84 0.1.960555.3.579.2.593 1956 Unknown [id number] 2.16.84 0.1.930204.3.579.2.593 1956 Unknown [id number] 2.16.84 0.1.138026.3.579.2.593 1956 Unknown [id number] 2.16.84 0.1.847118.3.579.2.593 1956 Unknown [id number] 2.16.84 0.1.040089.3.579.2.593 1956 Unknown [id number] 2.16.84 0.1.646599.3.579.2.593 1956 Unknown [id number] 2.16.84 0.1.030395.3.579.2.593 1956 Unknown [id number] 2.16.84 0.1.804415.3.579.2.593 1956 Unknown [id number] 2.16.84 0.1.311300.3.579.2.593 1956 Unknown [id number] 2.16.84 0.1.971633.3.579.2.593 1956 Unknown [id number] 2.16.8 40.1.356927.3.579.2.727 1956 Unknown [id number] 2.16.8 40.1.805300.3.579.2.727 1956 Unknown [id number] 2.16.8 40.1.727876.3.579.2.727 1956 Unknown [id number] 2.16.8 40.1.970629.3.579.2.727 1956 Unknown [id number] 2.16. 840.1.239547.3.579.2.196 1956 Unknown [id number] 2.16. 840.1.187073.3.579.2.196 1956 Unknown [id number] 2.16. 840.1.578273.3.579.2.196 1956 Unknown [id number] 2.16.84 0.1.838207.3.579.2.1259 Social History Date Type Detail Facility Sex Assigned At [facility] Start: 06-03-2023 Tobacco smoking status Never s moked tobacco (finding) [facility] Tobacco smoking status Never [facility] Functional Status Date Assessment Result Facility 06-03-2023 Functional Status N/A [facility] Clinical Notes 04-12-2021 to 06-03-2023 Note [...] provider. Document Revised: 12/24/2021 Document Reviewed: 12/24/2021 [employer] Patient Education 2022 [employer]. Follow Up Care 05/29/2022 11:47:27 With:DAVID IVAN, LIZ Juarez, URL Address: [address] [place] [address] [id number] When: Unknown Comments:6 mos w/ PSA [facility] 12-03-2022 Note PROCEDURE: XR FOOT L [...] by: ELIN KENNY Date: 2022-12-03 09:57 [facility] 11-12-2022 Note PROCEDURE: XR FOOT L T [...] by: ZAFAR FERRER Date: 2022-11-12 13:59 [facility] 10-22-2022 Note PROCEDURE: XR FOOT [...] authenticated by: ELIN KENNY Date: 2022-10-22 07:48 [facility] 10-22-2022 Note PROCEDURE: XR FOOT L T 2V HISTORY: Pain COMPARISON: XR foot left 10/21/2022 FINDINGS: BONES:Multiple intraoperative spot fluoroscopic images demonstrate mechanical fusion of the first metatarsophalangeal joint and resection of head of first proximal phalanx. IMPRESSION: 1. Surgical changes of left first toe as detailed above. Electronically authenticated by: ELIN KENNY Date: 2022-10-22 07:46 [facility] 07-31-2022 Note Currently stable [facility] 07-31-2022 Note Hypertension is well controlled 114/64 Continue lisinopril 5 mg Recent CR elevated 1.59- his cr typically has been 1.2-1.4 - He has been on antibiotics for Lt foot infection- DFU with wound care. [facility] 07-31-2022 Note Lipid abnormalities are currently well controlled with lipitor 20 mg- LDL currently 58.6 on labs 07/26/2022 Liver function 04/2022 were normal [facility] 07-31-2022 Note UTP CARDIOLOGY PROGR ESS NOTE [...] RTC 1 year or earlier if needed [facility] 07-31-2022 Note Patient here for 6 m o follow up history of PE and hyperlipidemia. Had labs in Apr and echo in Jun 2022. Patient denies chest pain, SOB, and increase in LE edema. Doing very well from cardiac standpoint. Was seeing Dr. Graves for his varicose veins. Review of Systems Cardiovascular: Positive for leg swelling. All other systems reviewed and are negative. [facility] 07-31-2022 Note CONSULTATION PROCEDURE DATE: 07/31/2022 INDICATIONS: [...] the clinic in three months' time. [facility] 07-25-2022 Note CONSULTATION CONSULTATION DATE: 07/25/2022 HISTORY OF PRESENT ILLNESS: This is a 66-year-old gentleman who presents to the Pain Clinic today with increased lower back pain. The patient does have chronic bilateral knee pain, but he states those are doing quite well. He did receive a left knee steroid injection in April. The patient just recently returned from a [place] vacation, where he visited multiple [employer] mayes and had a lot of increased [...] and will be contacted upon approval. [facility] 07-24-2022 Note PROCEDURE: XR FOOT L T [...] by: ELIN KENNY Date: 2022-07-24 10:21 [facility] 06-10-2022 Note PROCEDURE: XR KNEE L T 4V or > HISTORY: Pain in left knee ; chronic left knee pain COMPARISON: XR knee bilateral 05/31/2021 FINDINGS: BONES:Marked narrowing of the medial joint space with suspected [id number] articulation. Moderate-marked narrowing of the lateral compartment. Mild narrowing of anterior compartment. Small periarticular osteophytes involving the margins of all 3 compartments. No fracture or dislocation. SOFT TISSUES:No visible soft tissue swelling. EFFUSION:Small joint effusion. OTHER: Negative. IMPRESSION: 1. Marked degenerative joint disease. Stable to minimally progressed. Electronically authenticated by: ELIN KENNY Date: 2022-06-10 19:35 [facility] 05-23-2022 Evaluation note Encounter Date Diagnosis Assessment [...] Pain in left knee (ICD-10 - M25.562) [employer] Other 10-11-2022 NoteCONSULTATION CONSULTATION DATE: 04/23/2022 CHIEF [...] the time being. CC: Felisa Berrios M.D.[facility] [id number] NoteCONSULTATION CONSULTATION DATE: 04/04/2022 HISTORY OF PRESENT [...] indicated. Patient agreed with plan of care.[facility] [id number] Note CONSULTATION CONSULTATION DATE: 02/14/2022 HISTORY OF [...] time unless otherwise indicated. Patient acknowledges understanding.[facility] [id number] NoteCONSULTATION PROCEDURE DATE: 02/14/2022 PREOPERATIVE DIAGNOSIS: Bilateral [...] will be followed up in the office.[facility] [id number] Evaluation note* Encounter Date Diagnosis Assessment Notes [...] Pain in left knee (ICD-10 - M25.562) [facility] Other 09-30-2021 Evaluation note* Encounter Date Diagnosis Assessment Notes Treatment Notes Treatment Clinical Notes Mar, Liver hemangioma (ICD-10 - D18.03) Mar, HODGES (nonalcoholic steatohepatitis) (ICD-10 - K75.81) [facility] [facility] Other Evaluation + Plan note Future Appointments Appointment Date:11/04/2023 08:30:00 AM Scheduled Provider:LIZ HERNANDEZ PA-C Location:[facility] Appointment Type:URO Office Visit Diagnostic Tests Pending * PSA Total 06/03/23 [facility] History general Narrative - Reported* Type Description Date Medical History DM II Medical History HTN Medical History hyperlipidemia Medical History gout Surgical History knee surgery Surgical History tonsillectomy Surgical History vasectomy Surgical History sinus surgery Surgical History back injections Hospitalization History SEE ABOVE SURGICAL HX [facility] [email or web address] Other Hospital course Narrative No data available for this section [facility] progress note No data available for this section [facility] Summary Purpose Family History No Family [...] section and content) DATE CREATED AUTHOR 03/29/2021 [facility] DATE CREATED AUTHOR AUTHOR'S ORGANIZ ATION 08/06/2022 [facility] DATE CREATED AUTHOR AUTHOR'S ORGANIZ ATION 12/20/2022 [facility] DATE CREATED AUTHOR AUTHOR'S ORGANIZ ATION 07/01/[address] [facility] DATE CREATED AUTHOR AUTHOR'S ORGANIZ ATION 07/05/2023 [facility] DATE CREATED AUTHOR AUTHOR'S ORGANIZ ATION 07/24/2023 [facility] EPIC REASON FOR VISIT (unrecogniz ed section and content) PT HERE FOR 4 WEEK FOLLOW UP LIVER LESION LABS WERE ORDERED AT LAST OFFICE VISITBilateral Knee PainRecheck Bilateral Knees Patient Care team informatio n (unrecognized section and content) Personnel Name: RUBEN MCGUIRE, FELISA Juarez Address: Address: [address] [place] [id number] FOR RECORDS PERTAINING TO PATIENTS WHO ARE [...] BE BASED ON THE PRIMARY CLINICAL RECORDS. [facility] [employer] [facility]. provides no warranty or guarantee of the accuracy or completeness of information in this document.
--- OUTSIDE RECORDS SUMMARY | 2023-09-05 13:36 | XMS_ITS | CCD ---
Author Name Unknown Address [address] [place] [address] [facility] Team Providers Care Clinical Documentation Manager Name Role Phone Frances Racheal Unavailable Alejandra [...] Admitting Unavailable ELTAHAWLiza, DR SALCIDO Consulting Unavailable BRERIOS ., DR FELISA Juarez Primary Care Unavailable [...] Consulting Unavailable JOHNSON ., RODRIGO Consulting Unavailable BONOE ., DR NATHALY Main Admitting Unavailable BERRIOS [...] ., DR FELISA Juarez Primary Care Unavailable [facility] STEWART Attending Unavailable [facility] STEW[facility] Admitting Unavailable [facility] STEWART Consulting Unavailable [facility], DR RACHEAL [...] Attending Unavailable FELISA BERRIOS Primary Care Physician [phone] MARZENA HERNANDEZ Attending Unavailab MARZENA Cerna Attending Unavailab FELISA Ruiz Attending Unavailable FELISA BERRIOS Attending Unavailable Kyara MCGUIRE, Donaldo Cunningham Attending Unavailable Kyara MCGUIRE, Donaldo Cunningham Attending Unavailable Kyara MCGUIRE, Donaldo Cunningham Attending Unavailable HARINDER RUGGIERO Attending Unavailable Allergies Allergy Classification Reported Allergen(s) Allergy Type Date of Onset Reaction(s) Facility (3 sources) Acetaminophen / oxyCODONE Drug Allergy Unknown trinket Other (1 source) Acetaminophen / oxyCODONE; Translations: [OXYCODONE-ACETAM INOPHEN] Drug Allergy 3 [facility] Repository (3 sources) oxyCODONE; Translations: [OXYCODONE] Drug Allergy 3 Hyperactive behavior (finding) [facility] Repository (1 source) Acetaminophen / oxyCODONE Drug Allergy [facility] Repository (1 source) oxyCODONE; Translations: [OxyCODONE Hydrochloride] Drug Allergy [facility] Repository Medications Current Medications Medication Drug [...] 20mg/24hrs, # 20 tab(s), Refills(s) 3, Pharmacy: [facility]/pharmacy #[id number], 188, cm, 06/03/23 10:01:00 [...] needed, # 2 tab(s), Refills(s) 0, Pharmacy: [facility]/pharmacy #[id number], 185.4, cm, 12/05/20 11:15:00 [...] Chronic Other aftercare (1 source) long term (current) use of oral hypoglycemic drugs; Translations: [PENITENTIARY USE ORAL HYPOGLYCEMIC DX] Onset: 3 Episodic Other aftercare (1 source) [facility] ([facility] drug therapy; Translations: [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 00TIFF Normal [facility] Lab Reportson 06-06-2023 Lab Reports [id number]#1.00 TIFF Normal [facility] RAD - MISCon 06-04-2023 RAD - MISC [id number]#1.00 TIFF Normal [facility] Screenson 06-04-2023 Screens [id number]#1. 00TIFF Normal [facility] Patient Educationon 06-03-20 Patient Education Oncology [...] adds flu (more content not included)... Normal [facility] Urology Office/Clinic Noteon 06-03-2023 Urology Office/Clinic [...] When Contact Information LIZ HERNANDEZ PA-C, URL [address] [place] [address] [phone] Additional Instructions: 6 mos w/ PSA Patient [...] guided bi (more content not included)... Normal [facility] Comment on above: Result Comment: Elec tronically Signed By: LIZ HERNANDEZ PA-C\.br\Date and Time Signed: 06/03/23 11:48 EST\.br\Electronically Co-Signed By: Maru Burr\.br\Date and Time Co-Signed: 06/03/23 10:26 EST Immunization Recordson 04-23 Immunization Records [id number]#1. 00TIFF Normal [facility] Consultation Noteon 04-15-20 Consultation Note [id number]#1.0 0CD:127 Normal [facility] RAD - MISCon 12-24-2022 RAD - MISC [id number]#1.00 CD:127 Normal [facility] XR LSPINE W_OBLS AND FLEX_EX Ton [...] by: RACHEAL GRAVES Date: 2022-12-05 09:46 Normal [facility] Consultation Noteon 12-05-19 Consultation Note [id number]#1.0 0CD:127 Normal [facility] Operative Reporton Operative Report [id number]#1.0 0CD:127 Normal [facility] CBC AUTO DIFFon 10-21-2022 BASO # 0.1 103/ul Normal 0.0-0.1 [facility] Comment on above: Performed By: #### P OCGLUC #### [facility] [address] [address] [address] Juliet García Basophils/100 WBC (Bld) 0.7 % Normal 0.2-2.0 [facility] Comment on above: Performed By: #### P OCGLUC #### [facility] [address] [place] [address] Dr. Juliet García EO # 0.4 103/ul Normal 0.0-0.7 [facility] Comment on above: Performed By: #### P OCGLUC #### [facility] [address] [address] [address] Juliet García Eosinophils/100 WBC (Bld) 5.3 % Normal 0.9-7.0 [facility] Comment on above: Performed By: #### P OCGLUC #### [facility] [address] [place] [address] Dr. Juliet García Erythrocyte distribution width (RBC) [Ratio] 14.0 % Normal 11.0-15.0 [facility] Comment on above: Performed By: #### P OCGLUC #### [facility] [address] [place] [address] Dr. Juliet García Hematocrit (Bld) [Volume fraction] 43.6 % Normal 42.0-54.0 [facility] Comment on above: Performed By: #### P OCGLUC #### [facility] [address] [place] [address] Dr. Juliet García Hemoglobin (Bld) [Mass/Vol] 14.9 g/dL Normal 14.0-18.0 [facility] Comment on above: Performed By: #### P OCGLUC #### [facility] [address] [place] [address] Dr. Juliet García IG # 0.03 10e3/ul Normal 0.00-0.03 [facility] Comment on above: Performed By: #### P OCGLUC #### [facility] [address] [place] [address] Dr. Juliet García IG % 0.4 % Normal 0.0-0.5 [facility] Comment on above: Performed By: #### P OCGLUC #### [facility] [address] [place] [address] Dr. Juliet García LYMPH # 2.0 103/ul Normal 1.2-3.8 [facility] Comment on above: Performed By: #### P OCGLUC #### [facility] [address] [place] [address] Dr. Juliet García Lymphocytes/100 WBC (Bld) 29.3 % Normal 20.5-60.0 [facility] Comment on above: Performed By: #### P OCGLUC #### [facility] [address] [address] [address] Juliet García MANUAL DIFF REQ NO Normal [facility] Comment on above: Performed By: #### P OCGLUC #### [facility] [address] [address] [address] Juliet García MCH (RBC) [Entitic mass] 33.4 pg Normal 25.9-34.0 [facility] Comment on above: Performed By: #### P OCGLUC #### [facility] [address] [address] [address] Juliet García MCHC (RBC) [Mass/Vol] 34.2 g/dL Normal 29.9-35.2 [facility] Comment on above: Performed By: #### P OCGLUC #### [facility] [address] [address] [address] Juliet García MCV (RBC) [Entitic vol] 97.8 fL Critically high 80.0-94.0 [facility] Comment on above: Performed By: #### P OCGLUC #### [facility] [address] [address] [address] Juliet García MONO # 0.7 103/ul Normal 0.3-0.8 [facility] Comment on above: Performed By: #### P OCGLUC #### [facility] [address] [address] [address] Juliet García Monocytes/100 WBC (Bld) 9.9 % Normal 1.7-12.0 [facility] Comment on above: Performed By: #### P OCGLUC #### [facility] [address] [address] [address] Juliet García NEUT # 3.7 103/ul Normal 1.4-6.5 [facility] Comment on above: Performed By: #### P OCGLUC #### [facility] [address] [address] [address] Juliet García Neutrophils/100 WBC (Bld) 54.4 % Normal 43.0-75.0 [facility] Comment on above: Performed By: #### P OCGLUC #### [facility] [address] [address] [address] Juliet García Platelet mean volume (Bld) [Entitic vol] 9.0 fL Critically low 9.5-13.5 [facility] Comment on above: Performed By: #### P OCGLUC #### [facility] [address] [address] [address] Juliet García PLT 211 103/ul Normal 150-450 [facility] Comment on above: Performed By: #### P OCGLUC #### [facility] [address] [address] [address] Juliet García RBC 4.46 106/ul Critically low 4.70-6.10 [facility] Comment on above: Performed By: #### P OCGLUC #### [facility] [address] [address] [address] Juliet García WBC 6.8 103/ul Normal 4.0-11.0 [facility] Comment on above: Performed By: #### P OCGLUC #### [facility] [address] [address] [address] Juliet García POINT OF CARE GLUCOSEon 10-12 Glucose [Mass/Vol] 100 mg/dL Normal 74-106 [facility] Comment on above: Performed By: #### P OCGLUC #### [facility] [address] [address] [address] Juliet García Glucose [Mass/Vol] 94 mg/dL Normal 74-106 [facility] Comment on above: Performed By: #### A 1C #### [facility] [address] [address] [address] Juliet García Lab Reportson 10-14-2022 Lab Reports [id number]#1.0 0CD:127 Normal [facility] Outside [facility] Correspo ndenceon 10-14-2022 Outside [facility] Correspondence [id number]#1.0 0CD:127 Normal [facility] PROF CHEM 8 (BAS METB)on Anion gap [Moles/Vol] 14.0 mmol/L Normal [facility] Comment on above: Performed By: #### B MP #### [facility] [address] [address] [address] Juliet García Calcium [Mass/Vol] 9.0 mg/dL Normal 8.5-10.1 [facility] Comment on above: Performed By: #### B MP #### [facility] [address] [address] [address] Juliet García Chloride [Moles/Vol] 107 mmol/L Normal 98-107 [facility] Comment on above: Performed By: #### B MP #### [facility] [address] [address] [address] Juliet García CO2 [Moles/Vol] 28.7 mmol/L Normal 21.0-32.0 [facility] Comment on above: Performed By: #### B MP #### [facility] [address] [address] [address] Juliet García Creatinine [Mass/Vol] 1.41 mg/dL Critically high 0.70-1.30 [facility] Comment on above: Performed By: #### B MP #### [facility] [address] [address] [address] Juliet García EGFR-AF GERMAN >60 Normal >=60 [facility] Comment on above: Performed By: #### B MP #### [facility] [address] [address] [address] Juliet García EGFR-NON AF GERMAN 50 mL/min/1.73m2 Critically low >=60 [facility] Comment on above: Performed By: #### B MP #### [facility] [address] [address] [address] Juliet García Glucose [Mass/Vol] 95 mg/dL Normal 74-106 [facility] Comment on above: Performed By: #### B MP #### [facility] [address] [address] [address] Juliet García Potassium [Moles/Vol] 4.7 mmol/L Normal 3.5-5.1 [facility] Comment on above: Performed By: #### B MP #### [facility] [address] [address] [address] Juliet García Sodium [Moles/Vol] 145 mmol/L Normal 136-145 [facility] Comment on above: Performed By: #### B MP #### [facility] [address] [address] [address] Juliet García Urea nitrogen [Mass/Vol] 25.0 mg/dL Critically high 7.0-18.0 [facility] Comment on above: Performed By: #### B MP #### [facility] [address] [address] [address] Juliet García Urea nitrogen/Creatinine [Mass ratio] 17.7 mg/mg Normal [facility] Comment on above: Performed By: #### B MP #### [facility] [address] [address] [address] Juliet García Office Visiton 07-31-2022 Follow-up visit [id number] Carlos Locke 1955 M Date Provider Department Center 07/31/2022 BENTLEY MENDOZA [facility] Family History Problem Relation Age of Onset Stroke Father Family Status - Relation Status Age at Father Level of Service:50051 ND OFFICE/OUTPATIENT ESTABLISHED MOD MDM 30-39 MIN Reason for Visit and Comments: Hyperlipidemia [182] Hypertension [456821] history of PE [Other] Normal [facility] CULTURE WOUNDon 07-24-2022 CULTURE WOUND Culture Observations : No growth of anaerobes at 72 hours. Isolate 1 Stenotrophomonas maltophilia Moderate growth of ORGANISM 1 Stenotrophomonas maltophilia ANTIBIOTIC M.I.C RX STATUS Levofloxacin 1 S F Trimethoprim/Sulfameth oxazole <=20 S F Normal [facility] Comment on above: Performed By: #### W OUNDCX ####[facility] [id number] [place], [place] [address]WjDr. Juliet García GLYCOHEMOGLOBIN A1Con 2022 ADA RECOMMENDATION SEE BELOW Normal [facility] Comment on above: Result Comment: ADA RECOMMENDED LIMIT 4.0 - 6.0 ADA THERAPEUTIC TARGET < 7.0 ACTION SUGGESTED > 7.0 Performed By: #### A 1C #### [facility] [address] [address] [address] Juliet García Glucose [Mass/Vol] 111 mg/dL Normal [facility] Comment on above: Performed By: #### A 1C #### [facility] [address] [address] [address] Juliet García HbA1c (Bld) [Mass fraction] 5.5 % Normal 4.5-6.2 [facility] Comment on above: Performed By: #### A 1C #### [facility] [address] [address] [address] Juliet García ECHOCARDIO M/2D COMPLETEon 1 08-29-2021 ECHOCARDIO M/2D COMPLETE Patient: CARLOS LOCKE Exam Date: 06/28/2022 : 1955 Gender:M Ordering : DR LOLY BARNARD M.D. Admission #: [id number] Family : Order #: [id number] CLICK HERE TO VIEW EXAM ECHOCARDIOGRAM REPORT [...] M.D. on 07/04/2022 at 13:38 Normal [facility] URIC ACID SERUMon 06-10-2022 Urate [Mass/Vol] 6.9 mg/dL Normal 3.5-7.2 [facility] Comment on above: Performed By: #### A 1C #### [facility] [address] [place] [address] Dr. Juliet García XR KUB 1 VIEWon [...] RACHEAL GRAVES Date: 2022-05-28 07:31 Normal [facility] CBC AUTO DIFFon 05-03-2022 BASO # 0.1 103/ul Normal 0.0-0.1 [facility] Comment on above: Performed By: #### C BC #### [facility] [address] [place] [address] Dr. Juliet García Basophils/100 WBC (Bld) 0.9 % Normal 0.2-2.0 [facility] Comment on above: Performed By: #### C BC #### [facility] [address] [place] [address] Dr. Juliet García EO # 0.4 103/ul Normal 0.0-0.7 [facility] Comment on above: Performed By: #### C BC #### [facility] [address] [place] [address] Dr. Juleit García Eosinophils/100 WBC (Bld) 5.2 % Normal 0.9-7.0 [facility] Comment on above: Performed By: #### C BC #### [facility] [address] [place] [address] Dr. Juliet García Erythrocyte distribution width (RBC) [Ratio] 13.6 % Normal 11.0-15.0 [facility] Comment on above: Performed By: #### C BC #### [facility] [address] [place] [address] Dr. Juliet García Hematocrit (Bld) [Volume fraction] 40.5 % Critically low 42.0-54.0 [facility] Comment on above: Performed By: #### C BC #### [facility] [address] [place] [address] Dr. Juliet García Hemoglobin (Bld) [Mass/Vol] 13.7 g/dL Critically low 14.0-18.0 [facility] Comment on above: Performed By: #### C BC #### [facility] [address] [place] [address] Dr. Juliet García IG # 0.02 10e3/ul Normal 0.00-0.03 [facility] Comment on above: Performed By: #### C BC #### [facility] [address] [place] [address] Dr. Juliet García IG % 0.3 % Normal 0.0-0.5 [facility] Comment on above: Performed By: #### C BC #### [facility] [address] [place] [address] Dr. Juliet García LYMPH # 1.9 103/ul Normal 1.2-3.8 [facility] Comment on above: Performed By: #### C BC #### [facility] [address] [place] [address] Dr. Juliet García Lymphocytes/100 WBC (Bld) 27.7 % Normal 20.5-60.0 [facility] Comment on above: Performed By: #### C BC #### [facility] [address] [place] [address] Dr. Juliet García MANUAL DIFF REQ NO Normal [facility] Comment on above: Performed By: #### C BC #### [facility] [address] [place] [address] Dr. Juliet García MCH (RBC) [Entitic mass] 33.3 pg Normal 25.9-34.0 [facility] Comment on above: Performed By: #### C BC #### [facility] [address] [place] [address] Dr. Juliet García MCHC (RBC) [Mass/Vol] 33.8 g/dL Normal 29.9-35.2 [facility] Comment on above: Performed By: #### C BC #### [facility] [address] [place] [address] Dr. Juliet García MCV (RBC) [Entitic vol] 98.3 fL Critically high 80.0-94.0 [facility] Comment on above: Performed By: #### C BC #### [facility] [address] [place] [address] Dr. Juliet García MONO # 0.7 103/ul Normal 0.3-0.8 [facility] Comment on above: Performed By: #### C BC #### [facility] [address] [place] [address] Dr. Juliet García Monocytes/100 WBC (Bld) 9.9 % Normal 1.7-12.0 [facility] Comment on above: Performed By: #### C BC #### [facility] [address] [place] [address] Dr. Juliet García NEUT # 3.8 103/ul Normal 1.4-6.5 [facility] Comment on above: Performed By: #### C BC #### [facility] [address] [place] [address] Dr. Juliet García Neutrophils/100 WBC (Bld) 56.0 % Normal 43.0-75.0 [facility] Comment on above: Performed By: #### C BC #### [facility] [address] [place] [address] Dr. Juliet García Platelet mean volume (Bld) [Entitic vol] 9.0 fL Critically low 9.5-13.5 [facility] Comment on above: Performed By: #### C BC #### [facility] [address] [place] [address] Dr. Juliet García PLT 201 103/ul Normal 150-450 [facility] Comment on above: Performed By: #### C BC #### [facility] [address] [place], [place] [id number] Dr. Juliet García RBC 4.12 106/ul Critically low 4.70-6.10 [facility] Comment on above: Performed By: #### C BC #### [facility] [address] [address] [address] Juliet García WBC 6.7 103/ul Normal 4.0-11.0 [facility] Comment on above: Performed By: #### C BC #### [facility] [address] [place] [address] Dr. Juliet García GLYCOHEMOGLOBIN A1Con 2021 ADA RECOMMENDATION SEE BELOW Normal [facility] Comment on above: Result Comment: ADA RECOMMENDED LIMIT 4.0 - 6.0 ADA THERAPEUTIC TARGET < 7.0 ACTION SUGGESTED > 7.0 Performed By: #### A 1C #### [facility] [address] [place] [address] Dr. Juliet García Glucose [Mass/Vol] 108 mg/dL Normal [facility] Comment on above: Performed By: #### A 1C #### [facility] [address] [place] [address] Dr. Juliet García HbA1c (Bld) [Mass fraction] 5.4 % Normal 4.5-6.2 [facility] Comment on above: Performed By: #### A 1C #### [facility] [address] [place] [address] Dr. Juliet García LIPID PROFILEon 05-03-2022 CHOL-HDL RATIO NORM SEE BELOW Normal [facility] Comment on above: Result Comment: 3.3 - 4.4 LOW RISK 4.4 - 7.1 AVERAGE RISK 7.1 - 11.0 MODERATE RISK >11.0 HIGH RISK Performed By: #### L IPID, CMP #### [facility] [address] [place] [address] Dr. Juliet García Cholesterol [Mass/Vol] 154 mg/dL Normal <=200 [facility] Comment on above: Performed By: #### L IPID, CMP #### [facility] [address] [place] [address] Dr. Juliet García Cholesterol in HDL [Mass/Vol] 29 mg/dL Critically low 40-60 [facility] Comment on above: Performed By: #### L IPID, CMP #### [facility] [address] [address] [address] Juliet García Cholesterol in LDL [Mass/Vol] 64.2 mg/dL Normal [facility] Comment on above: Performed By: #### L IPID, CMP #### [facility] [address] [address] [address] Juliet García Cholesterol.total/Ch olesterol in HDL [Mass ratio] 5.3 {ratio} Normal [facility] Comment on above: Performed By: #### L IPID, CMP #### [facility] [address] [address] [address] Juliet García HDL NORMAL > or = 60 mg/dl - LO W CARDIOVASCULAR RISK <40 mg/dl - HIGH CARDIOVASCULAR RISK Normal [facility] Comment on above: Performed By: #### L IPID, CMP #### [facility] [address] [place] [address] Dr. Juliet García LDL CALC NORMAL SEE BELOW Normal [facility] Comment on above: Result Comment: <100 mg/dl OPTIMAL 100 - 129 mg/dl NEAR OR ABOVE OPTIMAL 130 - 159 mg/dl BORDERLINE HIGH 160 - 189 mg/dl HIGH >190 mg/dl VERY HIGH Performed By: #### L IPID, CMP #### [facility] [address] [place] [address] Dr. Juliet García Triglyceride [Mass/Vol] 304 mg/dL Critically high <=150 [facility] Comment on above: Performed By: #### L IPID, CMP #### [facility] [address] [place] [address] Dr. Juliet García VLDL CALC 60.8 mg/dL Normal [facility] Comment on above: Performed By: #### L IPID, CMP #### [facility] [address] [place] [address] Dr. Juliet García PROF 14(COMP METB)on 022 Albumin [Mass/Vol] 3.7 g/dL Normal 3.4-5.0 [facility] Comment on above: Performed By: #### L IPID, CMP #### [facility] [address] [address] [address] Juliet García Albumin/Globulin [Mass ratio] 1.1 {ratio} Normal [facility] Comment on above: Performed By: #### L IPID, CMP #### [facility] [address] [address] [address] Juliet García ALP [Catalytic activity/Vol] 87 U/L Normal 46-116 [facility] Comment on above: Performed By: #### L IPID, CMP #### [facility] [address] [address] [address] Juliet García ALT [Catalytic activity/Vol] 52 U/L Normal 16-63 [facility] Comment on above: Performed By: #### L IPID, CMP #### [facility] [address] [address] [address] Juliet García Anion gap [Moles/Vol] 11.5 mmol/L Normal [facility] Comment on above: Performed By: #### L IPID, CMP #### [facility] [address] [address] [address] Juliet García AST [Catalytic activity/Vol] 27 U/L Normal 15-37 [facility] Comment on above: Performed By: #### L IPID, CMP #### [facility] [address] [address] [address] Juliet García Bilirubin [Mass/Vol] 0.4 mg/dL Normal 0.2-1.0 [facility] Comment on above: Performed By: #### L IPID, CMP #### [facility] [address] [address] [address] Juliet García Calcium [Mass/Vol] 8.7 mg/dL Normal 8.5-10.1 [facility] Comment on above: Performed By: #### L IPID, CMP #### [facility] [address] [address] [address] Juliet García Chloride [Moles/Vol] 106 mmol/L Normal 98-107 [facility] Comment on above: Performed By: #### L IPID, CMP #### [facility] [address] [address] [address] Juliet García CO2 [Moles/Vol] 28.2 mmol/L Normal 21.0-32.0 [facility] Comment on above: Performed By: #### L IPID, CMP #### [facility] [address] [address] [address] Juliet García Creatinine [Mass/Vol] 1.21 mg/dL Normal 0.70-1.30 [facility] Comment on above: Performed By: #### L IPID, CMP #### [facility] [address] [address] [address] Juliet García EGFR-AF GERMAN >60 Normal >=60 [facility] Comment on above: Performed By: #### L IPID, CMP #### [facility] [address] [address] [address] Juliet García EGFR-NON AF GERMAN =60 Normal >=60 [facility] Comment on above: Performed By: #### L IPID, CMP #### [facility] [address] [address] [address] Juliet García Globulin (S) [Mass/Vol] 3.4 g/dL Normal [facility] Comment on above: Performed By: #### L IPID, CMP #### [facility] [address] [address] [address] Juliet García Glucose [Mass/Vol] 100 mg/dL Normal 74-106 [facility] Comment on above: Performed By: #### L IPID, CMP #### [facility] [address] [address] [address] Juliet García Potassium [Moles/Vol] 4.7 mmol/L Normal 3.5-5.1 [facility] Comment on above: Performed By: #### L IPID, CMP #### [facility] [address] [address] [address] Juliet García Protein [Mass/Vol] 7.1 g/dL Normal 6.4-8.2 [facility] Comment on above: Performed By: #### L IPID, CMP #### [facility] [address] [place], [place] [address] Dr. Juliet García Sodium [Moles/Vol] 141 mmol/L Normal 136-145 [facility] Comment on above: Performed By: #### L IPID, CMP #### [facility] [address] [address] [address] Juliet García Urea nitrogen [Mass/Vol] 23.0 mg/dL Critically high 7.0-18.0 [facility] Comment on above: Performed By: #### L IPID, CMP #### [facility] [address] [address] [address] Juliet García Urea nitrogen/Creatinine [Mass ratio] 19.0 mg/mg Normal [facility] Comment on above: Performed By: #### L IPID, CMP #### [facility] [address] [address] [address] Juliet García VC CONSULT FOLLOWUPon 2021 VC CONSULT FOLLOWUP Patient: CARLOS LOCKE Exam Date: 04/08/2022 : 1955 Gender:M Ordering : DR RACHEAL GRAVES M.D. Admission #: [id number] Family : Order #: [id number] CLICK HERE [...] Graves MD on 04/08/2022 at 11:30 Normal [facility] VC EXT VENOUS RT LIMITEDon 0 04-08-2022 VC EXT VENOUS RT LIMITED Patient: CARLOS LOCKE Exam Date: 04/08/2022 : 1955 Gender:M Ordering : DR RACHEAL GRAVES M.D. Admission #: [id number] Family : Order #: [id number] CLICK HERE TO VIEW EXAM RADIOLOGY REPORT [...] Graves MD on 04/08/2022 at 11:31 Normal [facility] VC INJ FOAM SCLERO W US MLTI on 04-03-2022 VC INJ FOAM SCLERO W US MLTI Patient: CARLOS LOCKE Exam Date: 04/03/2022 : 1955 Gender:M Ordering : DR RACHEAL GRAVES M.D. Admission #: [id number] Family : DR ANDERSEN EtelvinaRusty BOONE . Order #: [id number] CLICK HERE TO VIEW EXAM RADIOLOGY REPORT [...] av (more content not included)... Normal [facility] VC CONSULT FOLLOWUPon 2021 VC CONSULT FOLLOWUP Patient: CARLSO LOCKE Exam Date: 03/25/2022 : 1955 Gender:M Ordering : DR RACHEAL GRAVES M.D. Admission #: [id number] Family : Order #: [id number] CLICK HERE TO VIEW EXAM RADIOLOGY REPORT [...] Kenny M.D. on 03/25/2022 at 08:41 Normal [facility] VC EXT VENOUS RT LIMITEDon 0 03-25-2022 VC EXT VENOUS RT LIMITED Patient: CARLOS LOCKE Exam Date: 03/25/2022 : 1955 Gender:M Ordering : DR RACHEAL GRAVES M.D. Admission #: [id number] Family : Order #: [id number] CLICK HERE TO VIEW EXAM RADIOLOGY REPORT [...] Kenny M.D. on 03/25/2022 at 08:39 Normal [facility] VC ENDOVENOUS ABL 1ST V RTon 03-19-2022 VC ENDOVENOUS ABL 1ST V RT Patient: CARLOS LOCKE Exam Date: 03/19/2022 : 1955 Gender:M Ordering : DR RACHEAL GRAVES M.D. Admission #: [id number] Family : Order #: [id number] CLICK HERE TO VIEW EXAM RADIOLOGY REPORT [...] Racheal Graves MD on 03/19/2022 at 08:58 [facility] VC CONSULT FOLLOWUPon 2021 VC CONSULT FOLLOWUP Patient: CARLOS LOCKE Exam Date: 02/18/2022 : 1955 Gender:M Ordering : DR RACHEAL GRAVES M.D. Admission #: [id number] Family : Order #: [id number] CLICK HERE TO VIEW EXAM RADIOLOGY REPORT [...] Graves MD on 02/18/2022 at 09:45 Normal [facility] VC EXT VENOUS LT LIMITEDon 0 02-18-2022 VC EXT VENOUS LT LIMITED Patient: CARLOS LOCKE Exam Date: 02/18/2022 : 1955 Gender:M Ordering : DR RACHEAL GRAVES M.D. Admission #: [id number] Family : Order #: [id number] CLICK HERE TO VIEW EXAM RADIOLOGY REPORT [...] varicose veins remain off of SSV and process control engineer mid posterior calf. *Exam performed in accordance with [facility] practice guidelines- Peripheral venous ultrasound, October 07, 2009. CONCLUSION: Post ablation occlusion of left leg varicose veins Dictated by: Racheal Graves MD on 02/18/2022 at 09:32 Approved by: Racheal Graves MD on 02/18/2022 at 09:36 [facility] VC INJ FOAM SCLERO W US MLTI on 02-13-2022 VC INJ FOAM SCLERO W US MLTI Patient: CARLOS LOCKE Exam Date: 02/13/2022 : 1955 Gender:M Ordering : DR RACHEAL GRAVES M.D. Admission #: [id number] Family : Order #: [id number] CLICK HERE TO VIEW EXAM RADIOLOGY REPORT [...] Kenny M.D. on 02/13/2022 at 10:15 Normal [facility] VC CONSULT FOLLOWUPon 2021 VC CONSULT FOLLOWUP Patient: CARLOS LOCKE Exam Date: 02/06/2022 : 1955 Gender:M Ordering : DR RACHEAL GRAVES M.D. Admission #: [id number] Family : Order #: [id number] CLICK HERE TO VIEW EXAM RADIOLOGY REPORT [...] Kenny M.D. on 02/06/2022 at 09:53 [facility] VC EXT VENOUS LT LIMITEDon 0 02-06-2022 VC EXT VENOUS LT LIMITED Patient: CARLOS LOCKE Exam Date: 02/06/2022 : 1955 Gender:M Ordering : DR RACHEAL GRAVES M.D. Admission #: [id number] Family : Order #: [id number] CLICK HERE TO VIEW EXAM RADIOLOGY REPORT [...] Kenny M.D. on 02/06/2022 at 09:49 [facility] GLYCOHEMOGLOBIN A1Con 2021 ADA RECOMMENDATION SEE BELOW Normal [facility] Comment on above: Result Comment: ADA RECOMMENDED LIMIT 4.0 - 6.0 ADA THERAPEUTIC TARGET < 7.0 ACTION SUGGESTED > 7.0 Performed By: #### A 1C #### [facility] [address] [address] [address] Juliet García Glucose [Mass/Vol] 108 mg/dL Normal [facility] Comment on above: Performed By: #### A 1C #### [facility] [address] [address] [address] Juliet García HbA1c (Bld) [Mass fraction] 5.4 % Normal 4.5-6.2 [facility] Comment on above: Performed By: #### A 1C #### [facility] [address] [address] [address] Juliet García PROF 14(COMP METB)on 022 Albumin [Mass/Vol] 4.0 g/dL Normal 3.4-5.0 [facility] Comment on above: Performed By: #### C MP ####[facility] [address] [address]DrRusty García Albumin/Globulin [Mass ratio] 1.2 {ratio} Normal [facility] Comment on above: Performed By: #### C MP ####[facility] [address] [address]DrRusty García ALP [Catalytic activity/Vol] 89 U/L Normal 46-116 [facility] Comment on above: Performed By: #### C MP ####[facility] [address] [address]DrRusty García ALT [Catalytic activity/Vol] 81 U/L Critically high 16-63 [facility] Comment on above: Performed By: #### C MP ####[facility] [address] [address]DrRusty García Anion gap [Moles/Vol] 13.6 mmol/L Normal [facility] Comment on above: Performed By: #### C MP ####[facility] [address] [address]DrRusty García AST [Catalytic activity/Vol] 32 U/L Normal 15-37 [facility] Comment on above: Performed By: #### C MP ####[facility] [address] [address]DrRusty García Bilirubin [Mass/Vol] 0.5 mg/dL Normal 0.2-1.0 [facility] Comment on above: Performed By: #### C MP ####[facility] [address] [address]DrRusty García Calcium [Mass/Vol] 8.9 mg/dL Normal 8.5-10.1 [facility] Comment on above: Performed By: #### C MP ####[facility] [address] [address]Dr. Juliet García Chloride [Moles/Vol] 106 mmol/L Normal 98-107 [facility] Comment on above: Performed By: #### C MP ####[facility] [address] [address]Dr. Juliet García CO2 [Moles/Vol] 27.1 mmol/L Normal 21.0-32.0 [facility] Comment on above: Performed By: #### C MP ####[facility] [address] [address]. Juliet Ricky Creatinine [Mass/Vol] 1.46 mg/dL Critically high 0.70-1.30 [facility] Comment on above: Performed By: #### C MP ####[facility] [address] [place], [place] [address]Dr. Juliet Ricky EGFR-AF GERMAN 59 mL/min/1.73m2 Critically low >=60 [facility] Comment on above: Performed By: #### C MP ####[facility] [address] [place], [place] [address]Dr. Juliet Ricky EGFR-NON AF GERMAN 48 mL/min/1.73m2 Critically low >=60 [facility] Comment on above: Performed By: #### C MP ####[facility] [address] [address]Dr. Juliet Ricky Globulin (S) [Mass/Vol] 3.4 g/dL Normal [facility] Comment on above: Performed By: #### C MP ####[facility] [address] [address] Juliet Ricky Glucose [Mass/Vol] 93 mg/dL Normal 74-106 [facility] Comment on above: Performed By: #### C MP ####[facility] [address] [address]Dr. Juliet García Potassium [Moles/Vol] 4.7 mmol/L Normal 3.5-5.1 [facility] Comment on above: Performed By: #### C MP ####[facility] [address] [address]Dr. Juliet García Protein [Mass/Vol] 7.4 g/dL Normal 6.4-8.2 [facility] Comment on above: Performed By: #### C MP ####[facility] [address] [address]Dr. Juliet García Sodium [Moles/Vol] 142 mmol/L Normal 136-145 [facility] Comment on above: Performed By: #### C MP ####[facility] [address] [address]. Juliet García Urea nitrogen [Mass/Vol] 25.0 mg/dL Critically high 7.0-18.0 [facility] Comment on above: Performed By: #### C MP ####[facility] [address] [address]Dr. Juliet García Urea nitrogen/Creatinine [Mass ratio] 17.1 mg/mg Normal [facility] Comment on above: Performed By: #### C MP ####[facility] [address] [address]Dr. Juliet García VC ENDOVENOUS ABL 1ST V LTon 01-30-2022 VC ENDOVENOUS ABL 1ST V LT Patient: CARLOS LOCKE Exam Date: 01/30/2022 : 1955 Gender:M Ordering : DR RACHEAL GRAVES M.D. Admission #: [id number] Family : Order #: [id number] CLICK HERE TO VIEW EXAM RADIOLOGY REPORT [...] Kenny M.D. on 01/30/2022 at 12:00 Normal [facility] POINT OF CARE GLUCOSEon 07 Glucose [Mass/Vol] 84 mg/dL Normal 74-106 [facility] Comment on above: Performed By: #### P OCGLUC #### [facility] [address] [address] [address] Juliet García VC COMP CONSULTATIONon 01-21 VC COMP CONSULTATION Patient: CARLOS LOCKE Exam Date: 01/21/2022 : 1955 Gender:M Ordering : DR RACHEAL GRAVES M.D. Admission #: [id number] Family : Order #: [id number] CLICK HERE TO VIEW EXAM RADIOLOGY REPORT [...] for years. The patient is retired from [employer] after working 42 years. The patient denies [...] additional information, and this was performed [facility]. See separate history and physical for [...] incompetent branch saphenous tributary/varicose veins. Bilateral incompetent process control engineer veins. PHYSICAL EXAM: The right leg demonstrates [...] pulses were present bilaterally. IMPRESSION: 1. Bilateral fpbl-hh-cteujpba great saphenous vein and mild right small [...] MD on 01/21/2022 at 11:46 Normal [facility] VC VENOUS REFLUX MARIE LMTon 0 01-21-2022 VC VENOUS REFLUX MARIE LMT Patient: CARLOS LOCKE Exam Date: 01/21/2022 : 1955 Gender:M Ordering : DR RACHEAL GRAVES M.D. Admission #: [id number] Family : DR ANDERSEN EtelvinaRusty BOONE . Order #: [id number] CLICK HERE TO VIEW EXAM RADIOLOGY REPORT [...] Compressibility: Normal. Flow: Mild deep venous reflux. Receiving Dock Checker: Post/prox calf 5.9mm, 0.7s reflux. Prox/med calf [...] MD on 01/21/2022 at 10:40 Normal [facility] POINT OF CARE GLUCOSEon 12-13 Glucose [Mass/Vol] 87 mg/dL Normal 74-106 [facility] Comment on above: Performed By: #### P OCGLUC ####[facility] [address] [place], [place] [address]Q[address]. Juliet García SURGICAL PATHOLOGYon 021 SURGICAL PATHOLOGY Specimen #: [id number] Submitting Physician: JULIET GARCÍA M.D. FINAL DIAGNOSIS [place], [place]; [id number] (12/07/2020) Liver, mass , biopsy (A1, A2, [...] do not hesitate to contact us at [phone] with questions or if additional follow up information becomes available. This case was reviewed in conjunction with the GI pathology fellow, Apoorva Diallo MD. The following stains were performed at the [facility] in order to further characterize this case: [...] in-situ hybridization tests have been determined by [facility] [place] ([facility] in a manner consistent with CLIA requirements. One or more of these tests have not been cleared or approved by the FDA. [facility] is regulated under CLIA as qualified to perform high-complexity testing. These tests are used for clinical purposes. They should not be regarded as investigational or for research. Nicolasa Cheema M.D. (Electronic Signature) _ SPECIMEN SUBMITTED A: 12 slides [id number] CLINICAL DATA Mass Date of Report: 03/27/2021 Date of Procedure: 03/16/2021 Date of Receipt: 03/15/2021 Submitted by: JULIET GARCÍA M.D. Location: Diagnostic interpretation performed at [facility], [address] [place] [address]. CLIA Number: [id number] Normal [facility] Comment on above: Performed By: #### S #### See report for performing lab information. Vital Signs Date Time Vital Sign Value Performing Clinician Facility 06-03-2023 09:59-0500 Blood Pressure Location LIZ HERNANDEZ [facility] 06-03-2023 09:59-0500 Diastolic blood pressure 74 mm[Hg] LIZ HERNANDEZ [facility] 06-03-2023 09:59-0500 Heart rate 70 /min LIZ HERNANDEZ [facility] 06-03-2023 09:59-0500 Respiratory rate 16 /min LIZ HERNANDEZ [facility] 06-03-2023 09:59-0500 Systolic blood pressure 138 mm[Hg] LIZ HERNANDEZ [facility] 05-23-2022 09:45-0500 Body height 187.96 cm Alejandra Olexa [facility] Other 05-23-2022 09:45-0500 Body mass index (BMI) [Ratio] 40.57 kg/m2 Alejandra Olexa [facility] Other 05-23-2022 09:45-0500 Body weight 143.34 kg Alejandra Olexa [facility] Other 08-07-2021 14:15-0500 Body height 187.96 cm Alejandra Olexa [facility] Other 08-07-2021 14:15-0500 Body mass index (BMI) [Ratio] 40.64 kg/m2 Alejandra Olexa [facility] Other 08-07-2021 14:15-0500 Body weight 143.61 kg Alejandra Olexa [facility] Other 04-12-2021 10:30-0400 Body height 187.96 cm Racheal Daniels [facility] Other 04-12-2021 10:30-0400 Body mass index (BMI) [Ratio] 41.75 kg/m2 Racheal Daniels [facility] Other 04-12-2021 10:30-0400 Body weight 147.51 kg Racheal Daniels [facility] Other 04-12-2021 10:30-0400 Diastolic blood pressure 71 mm[Hg] Racheal Daniels Other [facility] Other 04-12-2021 10:30-0400 Systolic blood pressure 131 mm[Hg] Racheal Daniels Other [facility] Other Encounters Encounter Date Encounter Type Care Provider Facility Start: 11-04-2023 ambulatory PA-C LIZ HERNANDEZ Facility:[facility] Start: 07-23-2023 End: 07-23-2023 ambulatory HARINDER RUGGIERO Not Available Start: 06-30-2023 End: 07-01-2023 ambulatory Donaldo Sparrow MD Facility:[facility] Start: 06-03-2023 End: 06-04-2023 ambulatory VLADISLAVC LIZ HERNANDEZ Facility:[facility] Start: 06-03-2023 End: 06-03-2023 Patient encounter procedure LIZ HERNANDEZ [facility] Start: 01-06-2023 End: 01-07-2023 ambulatory Donaldo Sparrow MD Facility:[facility] Start: 12-05-2022 End: 12-06-[address] FELISA [...] Encounter for preprocedural cardiovascular examination [facility] Start: 10-18-2022 Encounter for preprocedural laboratory examination TONIO Latham [facility] Start: 10-16-[address] FELISA BERRIOS [...] . Facility:[facility] Start: 09-06-2022 ambulatory FELISA BERRIOS Facility:[facility] Start: 08-26-2022 End: 08-27-[address] FELISA BERRIOS . Facility:[facility] Start: 08-06-2022 End: 08-07-2022 ambulatory TONIO BELL Facility:[facility] Start: 07-31-2022 End: 07-31-2022 ambulatory BENTLEY MACK [facility] Start: 07-31-2022 End: 08-01-2022 ambulatory [...] 05-23-2022 End: 05-23-2022 ambulatory Alejandra Cain Other [facility] Other Start: 05-23-2022 Office outpatient vi sit 15 minutes Alejandra Cain [facility] Start: 05-03-2022 End: 05-04-[address] [...] 08-07-2021 End: 08-07-2021 ambulatory Alejandra Cain Other [facility] Other Start: 08-07-2021 Office outpatient vi sit 15 minutes Alejandra Cain [facility] [place] Start: 04-12-2021 Office outpatient vi sit 15 minutes Racheal Daniels [facility] Procedures Date Procedure Procedure Detail Performing Clinician Start: 05-03-[address] RACHEAL GRAVES Comment on above: Performed By: #### P SAD #### [facility] [address] [place] [address] Dr. Juliet García Start: 12-07-2020 CT guided biopsy NOLAFELTON SIMONS DAVID Comment on above: LIVER. NO SEDATION. Arthroscopy of knee LIZ HERNANDEZ Bilateral cataracts (disorder) LIZ HERNANDEZ H/O: vasectomy LIZ De Jesus [employer] (substance) JOSE Hazel DAVID Comment on above: Toe Tonsillectomy LIZ HERNANDEZ Immunizations Immunization Date Immunization Notes Care Provider Fa eitanty 04-20-2023 SARS-CoV-2 mRNA (tozinameran 5y-11y) vaccine LIZ HERNANDEZ [facility] Comment on above: Result Comment: covi d 19 mRNA ([facility]) 04-17-2022 influenza virus vacc ine, unspecified formulation LIZ HERNANDEZ [facility] 03-23-2022 SARS-CoV-2 (COVID-19 ) [id number] LIZ HERNANDEZ [facility] 10-23-2021 SARS-CoV-2 mRNA (tsirxrjncih-zgwb-pftaqf e) vaccine LIZ DAVID [facility] 05-27-2021 pneumococcal polysaccharide vaccine, 23 valent LIZ DAVID [facility] 05-06-2021 SARS-CoV-2 (COVID-19 ) mRNA BNT-162b2 vax LIZ DAVID [facility] Comment on above: Result Comment: 2021: [id number] 04-07-2021 influenza virus vacc ine, unspecified formulation LIZ DAVID [facility] 09-18-2020 SARS-CoV-2 (COVID-19 ) mRNA BNT-156o2 vax LIZ DAVID [facility] [place] 04-19-2020 influenza virus vacc ine, unspecified formulation LIZ DAVID [facility] [place] 04-15-2020 influenza virus vacc ine, unspecified formulation LIZ DAVID [facility] 04-20-2018 influenza virus vacc ine, unspecified formulation LIZ DAVID [facility] 03-24-2018 influenza virus vacc ine, unspecified formulation LIZ DAVID [facility] 05-01-2013 influenza virus vacc ine, unspecified formulation LIZ DAVID [facility] Payers Date Payer Category Payer Medicare 2022 Unknown [id number] 2022 Unknown 2021 Medicare [id number] 2019 Unknown [id number] 2. [id number] 1959 Medicare [id number] 1955 Unknown [id number] 2.16.84 0.1.585057.3.579.2.593 1955 Unknown [id number] 2.16.84 0.1.097808.3.579.2.593 1955 Unknown [id number] 2.16.84 0.1.397293.3.579.2.593 1955 Unknown [id number] 2.16.84 0.1.232675.3.579.2.593 1955 Unknown [id number] 2.16.84 0.1.134697.3.579.2.593 1955 Unknown [id number] 2.16.84 0.1.708137.3.579.2.593 1956 Unknown [id number] 2.16.84 0.1.708315.3.579.2.593 1956 Unknown [id number] 2.16.84 0.1.633612.3.579.2.593 1955 Unknown [id number] 2.16.84 0.1.508490.3.579.2.593 1956 Unknown [id number] 2.16.84 0.1.065184.3.579.2.593 1955 Unknown [id number] 2.16.84 0.1.427227.3.579.2.593 1956 Unknown [id number] 2.16.84 0.1.254898.3.579.2.593 1956 Unknown [id number] 2.16.84 0.1.980458.3.579.2.593 1956 Unknown [id number] 2.16.84 0.1.166733.3.579.2.593 1956 Unknown [id number] 2.16.84 0.1.149074.3.579.2.593 1956 Unknown [id number] 2.16.84 0.1.160401.3.579.2.593 1956 Unknown [id number] 2.16.84 0.1.398802.3.579.2.593 1956 Unknown [id number] 2.16.84 0.1.894285.3.579.2.593 1956 Unknown [id number] 2.16.84 0.1.415501.3.579.2.593 1956 Unknown [id number] 2.16.84 0.1.051328.3.579.2.593 1956 Unknown [id number] 2.16.84 0.1.911409.3.579.2.593 1956 Unknown [id number] 2.16.84 0.1.265221.3.579.2.593 1956 Unknown [id number] 2.16.84 0.1.725753.3.579.2.593 1956 Unknown [id number] 2.16.84 0.1.820427.3.579.2.593 1956 Unknown [id number] 2.16.84 0.1.649859.3.579.2.593 1956 Unknown [id number] 2.16.84 0.1.269299.3.579.2.593 1956 Unknown [id number] 2.16.84 0.1.974220.3.579.2.593 1956 Unknown [id number] 2.16.84 0.1.738629.3.579.2.593 1956 Unknown [id number] 2.16.84 0.1.624001.3.579.2.593 1956 Unknown [id number] 2.16.84 0.1.693060.3.579.2.593 1956 Unknown [id number] 2.16.84 0.1.921124.3.579.2.593 1956 Unknown [id number] 2.16.84 0.1.425388.3.579.2.593 1956 Unknown [id number] 2.16.84 0.1.996592.3.579.2.593 1956 Unknown [id number] 2.16.84 0.1.242843.3.579.2.593 1956 Unknown [id number] 2.16.84 0.1.086456.3.579.2.593 1956 Unknown [id number] 2.16.84 0.1.792890.3.579.2.593 1956 Unknown [id number] 2.16.84 0.1.655885.3.579.2.593 1956 Unknown [id number] 2.16.84 [id number] 1955 Unknown [id number] 2.16.84 0.1.049156.3.579.2.593 1955 Unknown [id number] 2.16.84 0.1.523389.3.579.2.593 1955 Unknown [id number] 2.16.8 40.1.894516.3.579.2.727 1955 Unknown [id number] 2.16.8 40.1.090582.3.579.2.727 1955 Unknown [id number] 2.16.8 40.1.768749.3.579.2.727 1955 Unknown [id number] 2.16.8 40.1.644843.3.579.2.727 1955 Unknown [id number] 2.16. 840.1.423339.3.579.2.196 1955 Unknown [id number] 2.16. 840.1.743968.3.579.2.196 1955 Unknown [id number] 2.16. 840.1.273254.3.579.2.196 1955 Unknown [id number] 2.16.84 0.1.795234.3.579.2.1259 Social History Date Type Detail Facility Sex Assigned At [facility] Start: 06-03-2023 Tobacco smoking status Never s moked tobacco (finding) [facility] Tobacco smoking status Never [facility] Functional Status Date Assessment Result Facility 06-03-2023 Functional Status N/A [facility] Clinical Notes 04-12-2021 to 06-03-2023 Note [...] provider. Document Revised: 12/24/2021 Document Reviewed: 12/24/2021 [employer] Patient Education 2022 [employer]. Follow Up Care 05/29/2022 11:47:27 With:DAVID IVAN, LIZ Juarez, URL Address: [address] [place] [address] [phone] When: Unknown Comments:6 mos w/ PSA [facility] 12-03-2022 Note PROCEDURE: XR FOOT L [...] by: ELIN KENNY Date: 2022-12-03 09:57 [facility] 11-12-2022 Note PROCEDURE: XR FOOT L [...] by: ZAFAR FERRER Date: 2022-11-12 13:59 [facility] 10-22-2022 Note PROCEDURE: XR FOOT L [...] authenticated by: ELIN KENNY Date: 2022-10-22 07:48 [facility] 10-22-2022 Note PROCEDURE: XR FOOT L T 2V HISTORY: Pain COMPARISON: XR foot left 10/21/2022 FINDINGS: BONES:Multiple intraoperative spot fluoroscopic images demonstrate mechanical fusion of the first metatarsophalangeal joint and resection of head of first proximal phalanx. IMPRESSION: 1. Surgical changes of left first toe as detailed above. Electronically authenticated by: ELNI KENNY Date: 2022-10-22 07:46 [facility] 07-31-2022 Note Currently stable [facility] 07-31-2022 Note Hypertension is well controlled 114/64 Continue lisinopril 5 mg Recent CR elevated 1.59- his cr typically has been 1.2-1.4 - He has been on antibiotics for Lt foot infection- DFU with wound care. [facility] 07-31-2022 Note Lipid abnormalities are currently well controlled with lipitor 20 mg- LDL currently 58.6 on labs 07/26/2022 Liver function 04/2022 were normal [facility] 07-31-2022 Note UTP CARDIOLOGY PROGR ESS NOTE [...] RTC 1 year or earlier if needed [facility] 07-31-2022 Note Patient here for 6 m o follow up history of PE and hyperlipidemia. Had labs in Apr and echo in Jun 2022. Patient denies chest pain, SOB, and increase in LE edema. Doing very well from cardiac standpoint. Was seeing Dr. Graves for his varicose veins. Review of Systems Cardiovascular: Positive for leg swelling. All other systems reviewed and are negative. [facility] 07-31-2022 Note CONSULTATION PROCEDURE DATE: 07/31/2022 INDICATIONS: [...] the clinic in three months' time. [facility] 07-25-2022 Note CONSULTATION CONSULTATION DATE: 07/25/2022 HISTORY OF PRESENT ILLNESS: This is a 66-year-old gentleman who presents to the Pain Clinic today with increased lower back pain. The patient does have chronic bilateral knee pain, but he states those are doing quite well. He did receive a left knee steroid injection in April. The patient just recently returned from a [place] vacation, where he visited multiple [employer] mayes and had a lot of increased [...] and will be contacted upon approval. [facility] 07-24-2022 Note PROCEDURE: XR FOOT L [...] by: ELIN KENNY Date: 2022-07-24 10:21 [facility] 06-10-2022 Note PROCEDURE: XR KNEE L T 4V or > HISTORY: Pain in left knee ; chronic left knee pain COMPARISON: XR knee bilateral 05/31/2021 FINDINGS: BONES:Marked narrowing of the medial joint space with suspected [id number] articulation. Moderate-marked narrowing of the lateral compartment. Mild narrowing of anterior compartment. Small periarticular osteophytes involving the margins of all 3 compartments. No fracture or dislocation. SOFT TISSUES:No visible soft tissue swelling. EFFUSION:Small joint effusion. OTHER: Negative. IMPRESSION: 1. Marked degenerative joint disease. Stable to minimally progressed. Electronically authenticated by: ELIN KENNY Date: 2022-06-10 19:35 [facility] 05-23-2022 Evaluation note Encounter Date Diagnosis [...] Pain in left knee (ICD-10 - M25.562) [facility] Other 10-11-2022 NoteCONSULTATION CONSULTATION DATE: 04/23/2022 CHIEF [...] the time being. CC: Felisa Berrios M.D.[facility] [id number] NoteCONSULTATION CONSULTATION DATE: 04/04/2022 HISTORY OF PRESENT [...] indicated. Patient agreed with plan of care.[facility] [id number] Note CONSULTATION CONSULTATION DATE: 02/14/2022 HISTORY OF [...] right greater than left. Positive jump response. Nadie's point non-tender bilaterally. MUSCULOSKELETAL: Motor is 4/5 [...] time unless otherwise indicated. Patient acknowledges understanding.[facility] [id number] NoteCONSULTATION PROCEDURE DATE: 02/14/2022 PREOPERATIVE DIAGNOSIS: Bilateral [...] will be followed up in the office.[facility] [id number] Evaluation note* Encounter Date Diagnosis Assessment Notes [...] Pain in left knee (ICD-10 - M25.562) [facility] Other 09-30-2021 Evaluation note* Encounter Date Diagnosis Assessment Notes Treatment Notes Treatment Clinical Notes Mar, Liver hemangioma (ICD-10 - D18.03) Mar, HODGES (nonalcoholic steatohepatitis) (ICD-10 - K75.81) [facility] Other Evaluation + Plan note Future Appointments Appointment Date:11/04/2023 08:30:00 AM Scheduled Provider:LIZ HERNANDEZ PA-C Location:[facility] Appointment Type:URO Office Visit Diagnostic Tests Pending * PSA Total 06/03/23 [facility] History general Narrative - Reported* Type Description Date Medical History DM II Medical History HTN Medical History hyperlipidemia Medical History gout Surgical History knee surgery Surgical History tonsillectomy Surgical History vasectomy Surgical History sinus surgery Surgical History back injections Hospitalization History SEE ABOVE SURGICAL HX [facility] [employer] Other Hospital course Narrative No data available for this section [facility] progress note No data available for this section [facility] Summary Purpose Family History No Family [...] section and content) DATE CREATED AUTHOR 03/29/2021 [facility] DATE CREATED AUTHOR AUTHOR'S ORGANIZ ATION 08/06/2022 [facility] DATE CREATED AUTHOR AUTHOR'S ORGANIZ ATION 12/20/2022 [facility] DATE CREATED AUTHOR AUTHOR'S ORGANIZ ATION 07/01/2023 [facility] DATE CREATED AUTHOR AUTHOR'S ORGANIZ ATION 07/05/2023 [facility] DATE CREATED AUTHOR AUTHOR'S ORGANIZ ATION 07/24/2023 [facility] EPIC REASON FOR VISIT (unrecogniz ed section and content) PT HERE FOR 4 WEEK FOLLOW UP LIVER LESION LABS WERE ORDERED AT LAST OFFICE VISITBilateral Knee PainRecheck Bilateral Knees Patient Care team informatio n (unrecognized section and content) Personnel Name: RUBEN MCGUIRE, FELISA Jaurez Address: Address: [address] [place] [id number] FOR RECORDS PERTAINING TO PATIENTS WHO ARE [...] ON THE PRIMARY CLINICAL RECORDS. [facility] [employer] [facility]. provides no warranty or guarantee of the accuracy or completeness of information in this document.
== END 2023-07-10 16:00 | disposition home or self-care (01) ==
PROVIDERS: PCP Family Medicine; Visit Provider Family Medicine
DX: Z23 Encounter for immunization (principal)
CPT/HCPCS: 90471; 90678

== ENCOUNTER 2023-07-25 07:26 | Outpatient (OUT) | payer BC, SELFPAY ==
--- OUTSIDE RECORDS SUMMARY | 2023-07-25 07:36 | XMS_ITS | CCD ---
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 Role Phone Frances Racheal Unavailable Alejandra [...] ., DR NATHALY Main Admitting Unavailable MAHARAJ, TEHE Consulting Unavailable BOONE ., DR NATHALY Main Admitting Unavailable BOONE ., DR NATHALY Main Attending Unavailable BERRIOS ., DR FELISA Juarez Primary Care Unavailable BERRIOS ., DR FELISA Juarez Attending Unavailable BERRIOS ., DR FELSIA Juarez Consulting Unavailable BERRIOS ., DR FELISA [...] RACHEAL Ayala Attending Unavailable ZIEBER, DR ELIN Oliav Consulting Unavailable BERRIOS ., DR EFLISA Juarez Primary Care Unavailable HIGHLANDER, PETER D [...] ., DR FELISA Juarez Primary Care Unavailable [facility], DR STEWART Attending Unavailable [facility], DR STEWART Admitting Unavailable [facility], DR STEWART Consulting Unavailable WEST, DR RACHEAL Ayala Admitting Unavailable WEST, DR RACHEAL Ayala Consulting Unavailable WEST, DR RACHEAL Ayala Attending Unavailable RUBEN ., DR FELISA Juarez Primary Care Unavailable BIB, DR ELIN Oliva Consulting Unavailable RUBEN ., DR FELISA Juarez Primary Care Unavailable WEST, DR RACHEAL Ayala Admitting Unavailable WEST, DR RACHEAL Ayala Consulting Unavailable WEST, DR RACHEAL Ayala Attending Unavailable BIB, DR ELIN Oliva Consulting Unavailable WEST, DR RACHEAL Ayala Admitting Unavailable WEST, DR RACHEAL Ayala Consulting Unavailable RUBEN ., DR FELISA Juarez Primary Care Unavailable WEST, DR RACHEAL Ayala Attending Unavailable FELISA BERRIOS Primary Care Physician MARZENA HERNANDEZ Attending Unavailab MARZENA Cerna Attending Unavailab FELISA Ruiz Attending Unavailable FELISA BERRIOS Attending Unavailable Kyara MCGUIRE, Donaldo Cunningham Attending Unavailable Kyara MCGUIRE, Donaldo Cunningham Attending Unavailable Kyara MCGUIRE, Donaldo Cunningham Attending Unavailable HARINDER RUGGIERO Attending Unavailable Allergies Allergy Classification Reported Allergen(s) Allergy Type Date of Onset Reaction(s) Facility (3 sources) Acetaminophen / oxyCODONE Drug Allergy Unknown [facility] Other (1 source) Acetaminophen / oxyCODONE; Translations: [OXYCODONE-ACETAM INOPHEN] Drug Allergy 3 [facility] Repository (3 sources) oxyCODONE; Translations: [OXYCODONE] Drug Allergy 3 Hyperactive behavior (finding) [facility] Repository (1 source) Acetaminophen / oxyCODONE Drug Allergy [facility] Repository (1 source) oxyCODONE; Translations: [OxyCODONE Hydrochloride] Drug Allergy [facility] Repository Medications Current Medications Medication Drug [...] (4 sources) Xanthine Oxidase Inhibitor Start: 04-25-20 20 take 1 tablet by mouth once daily [...] 20mg/24hrs, # 20 tab(s), Refills(s) 3, Pharmacy: [facility]/pharmacy #[id number], 188, cm, 06/03/23 10:01:00 EST, Height/Length [...] needed, # 2 tab(s), Refills(s) 0, Pharmacy: [facility]/pharmacy #[id number], 185.4, cm, 12/05/20 11:15:00 EDT, Height/Length [...] Resolved: 2 Chronic Other aftercare (1 source) 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 00TIFF Normal [facility] Lab Reportson 06-06-2023 Lab Reports [id number]#1.00 TIFF Normal [facility] RAD - MISCon 06-04-2023 RAD - MISC [id number]#1.00 TIFF Normal [facility] Screenson 06-04-2023 Screens [id number]#1. 00TIFF Normal [facility] Patient Educationon 06-03-20 Patient Education Oncology [...] Where to find more information ? The [place] [employer]: www.cancer.org ? [place] [employer]: www.auanet.org Contact a health care [...] flu (more content not included)... Normal [facility] Urology Office/Clinic Noteon 06-03-2023 Urology Office/Clinic [...] When Contact Information LIZ HERNANDEZ PA-C, URL [address] [place] [place] [address] [phone] Additional Instructions: 6 mos w/ PSA Patient Education Prostate Cancer Screening Documentation recorded by the sariah Burr accurately reflects the services(s) I performed and decisions made by me. Authenticated by Liz Hernandez PA-C on 06/03/2023 11:47:50. Maru Hawthorne, personally scribed for Liz Hernandez PA-C on [...] bi (more content not included)... Normal [facility] Comment on above: Result Comment: Elec tronically Signed By: LIZ HERNANDEZ PA-C\.br\Date and Time Signed: 06/03/23 11:48 EST\.br\Electronically Co-Signed By: Maru Burr\.br\Date and Time Co-Signed: 06/03/23 10:26 EST Immunization Recordson 04-23 Immunization Records [id number]#1. 00TIFF Normal [facility] Consultation Noteon 04-15-20 Consultation Note [id number]#1.0 0CD:127 Normal [facility] RAD - MISCon 12-24-2022 RAD - MISC [id number]#1.00 CD:127 Normal [facility] XR LSPINE W_OBLS AND FLEX_EX Ton [...] by: RACHEAL GRAVES Date: 2022-12-05 09:46 Normal [facility] Consultation Noteon 12-05-19 Consultation Note [id number] 0CD:127 Normal [facility] Operative Reporton Operative Report [id number]#1.0 0CD:127 Normal [facility] CBC AUTO DIFFon 10-21-2022 BASO # 0.1 103/ul Normal 0.0-0.1 [facility] Comment on above: Performed By: #### P OCGLUC #### [facility] [address] [address] [address] Juliet García Basophils/100 WBC (Bld) 0.7 % Normal 0.2-2.0 [facility] Comment on above: Performed By: #### P OCGLUC #### [facility] [address] [place] [address] Dr. Juliet García EO # 0.4 103/ul Normal 0.0-0.7 [facility] Comment on above: Performed By: #### P OCGLUC #### [facility] [address] [address] [address] Juliet García Eosinophils/100 WBC (Bld) 5.3 % Normal 0.9-7.0 [facility] Comment on above: Performed By: #### P OCGLUC #### [facility] [address] [place] [address] Dr. Juliet García Erythrocyte distribution width (RBC) [Ratio] 14.0 % Normal 11.0-15.0 [facility] Comment on above: Performed By: #### P OCGLUC #### [facility] [address] [place] [address] Dr. Juliet García Hematocrit (Bld) [Volume fraction] 43.6 % Normal 42.0-54.0 [facility] Comment on above: Performed By: #### P OCGLUC #### [facility] [address] [place] [address] Dr. Juliet García Hemoglobin (Bld) [Mass/Vol] 14.9 g/dL Normal 14.0-18.0 [facility] Comment on above: Performed By: #### P OCGLUC #### [facility] [address] [place] [address] Dr. Juliet García IG # 0.03 10e3/ul Normal 0.00-0.03 [facility] Comment on above: Performed By: #### P OCGLUC #### [facility] [address] [place] [address] Dr. Juliet García IG % 0.4 % Normal 0.0-0.5 [facility] Comment on above: Performed By: #### P OCGLUC #### [facility] [address] [place] [address] Dr. Juliet García LYMPH # 2.0 103/ul Normal 1.2-3.8 [facility] Comment on above: Performed By: #### P OCGLUC #### [facility] [address] [place] [address] Dr. Juliet García Lymphocytes/100 WBC (Bld) 29.3 % Normal 20.5-60.0 [facility] Comment on above: Performed By: #### P OCGLUC #### [facility] [address] [address] [address] Juliet García MANUAL DIFF REQ NO Normal [facility] Comment on above: Performed By: #### P OCGLUC #### [facility] [address] [address] [address] Juliet García MCH (RBC) [Entitic mass] 33.4 pg Normal 25.9-34.0 [facility] Comment on above: Performed By: #### P OCGLUC #### [facility] [address] [address] [address] Juliet García MCHC (RBC) [Mass/Vol] 34.2 g/dL Normal 29.9-35.2 [facility] Comment on above: Performed By: #### P OCGLUC #### [facility] [address] [address] [address] Juliet García MCV (RBC) [Entitic vol] 97.8 fL Critically high 80.0-94.0 [facility] Comment on above: Performed By: #### P OCGLUC #### [facility] [address] [address] [address] Juliet García MONO # 0.7 103/ul Normal 0.3-0.8 [facility] Comment on above: Performed By: #### P OCGLUC #### [facility] [address] [address] [address] Juliet García Monocytes/100 WBC (Bld) 9.9 % Normal 1.7-12.0 [facility] Comment on above: Performed By: #### P OCGLUC #### [facility] [address] [address] [address] Juliet García NEUT # 3.7 103/ul Normal 1.4-6.5 [facility] Comment on above: Performed By: #### P OCGLUC #### [facility] [address] [address] [address] Juliet García Neutrophils/100 WBC (Bld) 54.4 % Normal 43.0-75.0 [facility] Comment on above: Performed By: #### P OCGLUC #### [facility] [address] [address] [address] Juliet García Platelet mean volume (Bld) [Entitic vol] 9.0 fL Critically low 9.5-13.5 [facility] Comment on above: Performed By: #### P OCGLUC #### [facility] [address] [address] [address] Juliet Garcaí PLT 211 103/ul Normal 150-450 [facility] Comment on above: Performed By: #### P OCGLUC #### [facility] [address] [address] [address] Juliet García RBC 4.46 106/ul Critically low 4.70-6.10 [facility] Comment on above: Performed By: #### P OCGLUC #### [facility] [address] [address] [address] Juliet García WBC 6.8 103/ul Normal 4.0-11.0 [facility] Comment on above: Performed By: #### P OCGLUC #### [facility] [address] [address] [address] Juliet García POINT OF CARE GLUCOSEon 10-12 Glucose [Mass/Vol] 100 mg/dL Normal 74-106 [facility] Comment on above: Performed By: #### P OCGLUC #### [facility] [address] [address] [address] Juliet García Glucose [Mass/Vol] 94 mg/dL Normal 74-106 [facility] Comment on above: Performed By: #### A 1C #### [facility] [address] [address] [address] Juliet García Lab Reportson 10-14-2022 Lab Reports [id number]#1.0 0CD:127 Normal [facility] Outside [facility] Correspo ndenceon 10-14-2022 Outside [facility] Correspondence [id number] 0CD:127 Normal [facility] PROF CHEM 8 (BAS METB)on Anion gap [Moles/Vol] 14.0 mmol/L Normal [facility] Comment on above: Performed By: #### B MP #### [facility] [address] [address] [address] Juliet García Calcium [Mass/Vol] 9.0 mg/dL Normal 8.5-10.[address] [facility] Comment on above: Performed By: #### B MP #### [facility] [address] [address] [address] Juliet García Chloride [Moles/Vol] 107 mmol/L Normal 98-107 [facility] Comment on above: Performed By: #### B MP #### [facility] [address] [address] [address] Juliet García CO2 [Moles/Vol] 28.7 mmol/L Normal 21.0-32.0 [facility] Comment on above: Performed By: #### B MP #### [facility] [address] [address] [address] Juliet García Creatinine [Mass/Vol] 1.41 mg/dL Critically high 0.70-1.30 [facility] Comment on above: Performed By: #### B MP #### [facility] [address] [address] [address] Juliet García EGFR-AF SIERRA LEONEAN >60 Normal >=60 [facility] Comment on above: Performed By: #### B MP #### [facility] [address] [address] [address] Juliet García EGFR-NON AF SIERRA LEONEAN 50 mL/min/1.73m2 Critically low >=60 [facility] Comment on above: Performed By: #### B MP #### [facility] [address] [address] [address] Juliet García Glucose [Mass/Vol] 95 mg/dL Normal 74-[address] [facility] Comment on above: Performed By: #### B MP #### [facility] [address] [address] [address] Juliet García Potassium [Moles/Vol] 4.7 mmol/L Normal 3.5-5.1 [facility] Comment on above: Performed By: #### B MP #### [facility] [address] [address] [address] Juliet García Sodium [Moles/Vol] 145 mmol/L Normal 136-[address] [facility] Comment on above: Performed By: #### B MP #### [facility] [address] [address] [address] Juliet García Urea nitrogen [Mass/Vol] 25.0 mg/dL Critically high 7.0-18.0 [facility] Comment on above: Performed By: #### B MP #### [facility] [address] [address] [address] Juliet García Urea nitrogen/Creatinine [Mass ratio] 17.7 mg/mg Normal [facility] Comment on above: Performed By: #### B MP #### [facility] [address] [address] [address] Juliet García Office Visiton 07-31-2022 Follow-up visit [id number] Carlos Locke 1955 M Date Provider Department Center 07/31/2022 BENTLEY MENDOZA [facility] Family History Problem Relation Age of Onset Stroke Father Family Status - Relation Status Age at Father Level of Service:32506 ND OFFICE/OUTPATIENT ESTABLISHED MOD MDM 30-39 MIN Reason for Visit and Comments: Hyperlipidemia [182] Hypertension [232971] history of PE [Other] Normal [facility] CULTURE WOUNDon 07-24-2022 CULTURE WOUND Culture Observations : No growth of anaerobes at 72 hours. Isolate 1 Stenotrophomonas maltophilia Moderate growth of ORGANISM 1 Stenotrophomonas maltophilia ANTIBIOTIC M.I.C RX STATUS Levofloxacin 1 S F Trimethoprim/Sulfameth oxazole <=20 S F Normal [facility] Comment on above: Performed By: #### W OUNDCX ####[facility] [address] [place], [place] [address]ZnDr. Juliet García GLYCOHEMOGLOBIN A1Con 2022 ADA RECOMMENDATION SEE BELOW Normal [facility] Comment on above: Result Comment: ADA RECOMMENDED LIMIT 4.0 - 6.0 ADA THERAPEUTIC TARGET < 7.0 ACTION SUGGESTED > 7.0 Performed By: #### A 1C #### [facility] [address] [address] [address] Juliet García Glucose [Mass/Vol] 111 mg/dL Normal [facility] Comment on above: Performed By: #### A 1C #### [facility] [address] [address] [address] Juliet García HbA1c (Bld) [Mass fraction] 5.5 % Normal 4.5-6.2 [facility] Comment on above: Performed By: #### A 1C #### [facility] [address] [address] [address] Juliet García ECHOCARDIO M/2D COMPLETEon 1 08-29-2021 ECHOCARDIO M/2D COMPLETE Patient: CARLOS LOCKE Exam Date: 06/28/2022 : 1955 Gender:M Ordering : DR LOLY BARNARD M.D. Admission #: [id number] Family : Order #: [id number] CLICK HERE TO VIEW EXAM ECHOCARDIOGRAM REPORT [...] M.D. on 07/04/2022 at 13:38 Normal [facility] URIC ACID SERUMon 06-10-2022 Urate [Mass/Vol] 6.9 mg/dL Normal 3.5-7.2 [facility] Comment on above: Performed By: #### A 1C #### [facility] [address] [place] [address] Dr. Juliet García XR KUB 1 VIEWon [...] RACHEAL GRAVES Date: 2022-05-28 07:31 Normal [facility] CBC AUTO DIFFon 05-03-2022 BASO # 0.1 103/ul Normal 0.0-0.1 [facility] Comment on above: Performed By: #### C BC #### [facility] [address] [place] [address] Dr. Juliet García Basophils/100 WBC (Bld) 0.9 % Normal 0.2-2.0 [facility] Comment on above: Performed By: #### C BC #### [facility] [address] [place] [address] Dr. Juliet García EO # 0.4 103/ul Normal 0.0-0.7 [facility] Comment on above: Performed By: #### C BC #### [facility] [address] [place] [address] Dr. Juliet García Eosinophils/100 WBC (Bld) 5.2 % Normal 0.9-7.0 [facility] Comment on above: Performed By: #### C BC #### [facility] [address] [place] [address] Dr. Juliet García Erythrocyte distribution width (RBC) [Ratio] 13.6 % Normal 11.0-15.0 [facility] Comment on above: Performed By: #### C BC #### [facility] [address] [place] [address] Dr. Juliet García Hematocrit (Bld) [Volume fraction] 40.5 % Critically low 42.0-54.0 [facility] Comment on above: Performed By: #### C BC #### [facility] [address] [place] [address] Dr. Juliet García Hemoglobin (Bld) [Mass/Vol] 13.7 g/dL Critically low 14.0-18.0 [facility] Comment on above: Performed By: #### C BC #### [facility] [address] [place] [address] Dr. Juliet García IG # 0.02 10e3/ul Normal 0.00-0.03 [facility] Comment on above: Performed By: #### C BC #### [facility] [address] [place] [address] Dr. Juliet García IG % 0.3 % Normal 0.0-0.5 [facility] Comment on above: Performed By: #### C BC #### [facility] [address] [place] [address] Dr. Juliet García LYMPH # 1.9 103/ul Normal 1.2-3.8 [facility] Comment on above: Performed By: #### C BC #### [facility] [address] [place] [address] Dr. Juliet García Lymphocytes/100 WBC (Bld) 27.7 % Normal 20.5-60.0 [facility] Comment on above: Performed By: #### C BC #### [facility] [address] [place] [address] Dr. Juliet García MANUAL DIFF REQ NO Normal [facility] Comment on above: Performed By: #### C BC #### [facility] [address] [place] [address] Dr. Juliet García MCH (RBC) [Entitic mass] 33.3 pg Normal 25.9-34.0 [facility] Comment on above: Performed By: #### C BC #### [facility] [address] [place] [address] Dr. Juliet García MCHC (RBC) [Mass/Vol] 33.8 g/dL Normal 29.9-35.2 [facility] Comment on above: Performed By: #### C BC #### [facility] [address] [place] [address] Dr. Juliet García MCV (RBC) [Entitic vol] 98.3 fL Critically high 80.0-94.0 [facility] Comment on above: Performed By: #### C BC #### [facility] [address] [place] [address] Dr. Juliet García MONO # 0.7 103/ul Normal 0.3-0.8 [facility] Comment on above: Performed By: #### C BC #### [facility] [address] [place] [address] Dr. Juliet García Monocytes/100 WBC (Bld) 9.9 % Normal 1.7-12.0 [facility] Comment on above: Performed By: #### C BC #### [facility] [address] [place] [address] Dr. Juliet García NEUT # 3.8 103/ul Normal 1.4-6.5 [facility] Comment on above: Performed By: #### C BC #### [facility] [address] [place] [address] Dr. Juliet García Neutrophils/100 WBC (Bld) 56.0 % Normal 43.0-75.0 [facility] Comment on above: Performed By: #### C BC #### [facility] [address] [place] [address] Dr. Juliet García Platelet mean volume (Bld) [Entitic vol] 9.0 fL Critically low 9.5-13.5 [facility] Comment on above: Performed By: #### C BC #### [facility] [address] [place] [address] Dr. Juliet García PLT 201 103/ul Normal 150-450 [facility] Comment on above: Performed By: #### C BC #### [facility] [address] [place], [place] [id number] Dr. Juliet García RBC 4.12 106/ul Critically low 4.70-6.10 [facility] Comment on above: Performed By: #### C BC #### [facility] [address] [address] [address] Juliet García WBC 6.7 103/ul Normal 4.0-11.0 [facility] Comment on above: Performed By: #### C BC #### [facility] [address] [place] [address] Dr. Juliet García GLYCOHEMOGLOBIN A1Con 2021 ADA RECOMMENDATION SEE BELOW Normal [facility] Comment on above: Result Comment: ADA RECOMMENDED LIMIT 4.0 - 6.0 ADA THERAPEUTIC TARGET < 7.0 ACTION SUGGESTED > 7.0 Performed By: #### A 1C #### [facility] [address] [place] [address] Dr. Juliet García Glucose [Mass/Vol] 108 mg/dL Normal [facility] Comment on above: Performed By: #### A 1C #### [facility] [address] [place] [address] Dr. Juliet García HbA1c (Bld) [Mass fraction] 5.4 % Normal 4.5-6.2 [facility] Comment on above: Performed By: #### A 1C #### [facility] [address] [place] [address] Dr. Juliet García LIPID PROFILEon 05-03-2022 CHOL-HDL RATIO NORM SEE BELOW Normal [facility] Comment on above: Result Comment: 3.3 - 4.4 LOW RISK 4.4 - 7.1 AVERAGE RISK 7.1 - 11.0 MODERATE RISK >11.0 HIGH RISK Performed By: #### L IPID, CMP #### [facility] [address] [place] [address] Dr. Juliet García Cholesterol [Mass/Vol] 154 mg/dL Normal <=200 [facility] Comment on above: Performed By: #### L IPID, CMP #### [facility] [address] [place] [address] Dr. Juliet García Cholesterol in HDL [Mass/Vol] 29 mg/dL Critically low 40-60 [facility] Comment on above: Performed By: #### L IPID, CMP #### [facility] [address] [address] [address] Juliet García Cholesterol in LDL [Mass/Vol] 64.2 mg/dL Normal [facility] Comment on above: Performed By: #### L IPID, CMP #### [facility] [address] [address] [address] Juliet García Cholesterol.total/Ch olesterol in HDL [Mass ratio] 5.3 {ratio} Normal [facility] Comment on above: Performed By: #### L IPID, CMP #### [facility] [address] [address] [address] Juliet García HDL NORMAL > or = 60 mg/dl - LO W CARDIOVASCULAR RISK <40 mg/dl - HIGH CARDIOVASCULAR RISK Normal [facility] Comment on above: Performed By: #### L IPID, CMP #### [facility] [address] [place] [address] Dr. Juliet García LDL CALC NORMAL SEE BELOW Normal [facility] Comment on above: Result Comment: <100 mg/dl OPTIMAL 100 - 129 mg/dl NEAR OR ABOVE OPTIMAL 130 - 159 mg/dl BORDERLINE HIGH 160 - 189 mg/dl HIGH >190 mg/dl VERY HIGH Performed By: #### L IPID, CMP #### [facility] [address] [place] [address] Dr. Juliet García Triglyceride [Mass/Vol] 304 mg/dL Critically high <=150 [facility] Comment on above: Performed By: #### L IPID, CMP #### [facility] [address] [place] [address] Dr. Juliet García VLDL CALC 60.8 mg/dL Normal [facility] Comment on above: Performed By: #### L IPID, CMP #### [facility] [address] [place] [address] Dr. Juliet García PROF 14(COMP METB)on 022 Albumin [Mass/Vol] 3.7 g/dL Normal 3.4-5.0 [facility] Comment on above: Performed By: #### L IPID, CMP #### [facility] [address] [address] [address] Juliet García Albumin/Globulin [Mass ratio] 1.1 {ratio} Normal [facility] Comment on above: Performed By: #### L IPID, CMP #### [facility] [address] [address] [address] Juliet García ALP [Catalytic activity/Vol] 87 U/L Normal 46-116 [facility] Comment on above: Performed By: #### L IPID, CMP #### [facility] [address] [address] [address] Juliet García ALT [Catalytic activity/Vol] 52 U/L Normal 16-63 [facility] Comment on above: Performed By: #### L IPID, CMP #### [facility] [address] [address] [address] Juliet García Anion gap [Moles/Vol] 11.5 mmol/L Normal [facility] Comment on above: Performed By: #### L IPID, CMP #### [facility] [address] [address] [address] Juliet García AST [Catalytic activity/Vol] 27 U/L Normal 15-37 [facility] Comment on above: Performed By: #### L IPID, CMP #### [facility] [address] [address] [address] Juliet García Bilirubin [Mass/Vol] 0.4 mg/dL Normal 0.2-1.0 [facility] Comment on above: Performed By: #### L IPID, CMP #### [facility] [address] [address] [address] Juliet García Calcium [Mass/Vol] 8.7 mg/dL Normal 8.5-10.[address] [facility] Comment on above: Performed By: #### L IPID, CMP #### [facility] [address] [address] [address] Juliet García Chloride [Moles/Vol] 106 mmol/L Normal 98-107 [facility] Comment on above: Performed By: #### L IPID, CMP #### [facility] [address] [address] [address] Juliet García CO2 [Moles/Vol] 28.2 mmol/L Normal 21.0-32.0 [facility] Comment on above: Performed By: #### L IPID, CMP #### [facility] [address] [address] [address] Juliet García Creatinine [Mass/Vol] 1.21 mg/dL Normal 0.70-1.30 [facility] Comment on above: Performed By: #### L IPID, CMP #### [facility] [address] [address] [address] Juliet García EGFR-AF SIERRA LEONEAN >60 Normal >=60 [facility] Comment on above: Performed By: #### L IPID, CMP #### [facility] [address] [address] [address] Juliet García EGFR-NON AF SIERRA LEONEAN =60 Normal >=60 [facility] Comment on above: Performed By: #### L IPID, CMP #### [facility] [address] [address] [address] Juliet García Globulin (S) [Mass/Vol] 3.4 g/dL Normal [facility] Comment on above: Performed By: #### L IPID, CMP #### [facility] [address] [address] [address] Juliet García Glucose [Mass/Vol] 100 mg/dL Normal 74-[address] [facility] Comment on above: Performed By: #### L IPID, CMP #### [facility] [address] [address] [address] Juliet García Potassium [Moles/Vol] 4.7 mmol/L Normal 3.5-5.1 [facility] Comment on above: Performed By: #### L IPID, CMP #### [facility] [address] [address] [address] Juliet García Protein [Mass/Vol] 7.1 g/dL Normal 6.4-8.[address] [facility] Comment on above: Performed By: #### L IPID, CMP #### [facility] [address] [place], [place] [address] Dr. Juliet García Sodium [Moles/Vol] 141 mmol/L Normal 136-145 [facility] Comment on above: Performed By: #### L IPID, CMP #### [facility] [address] [address] [address] Juliet García Urea nitrogen [Mass/Vol] 23.0 mg/dL Critically high 7.0-18.0 [facility] Comment on above: Performed By: #### L IPID, CMP #### [facility] [address] [address] [address] Juliet García Urea nitrogen/Creatinine [Mass ratio] 19.0 mg/mg Normal [facility] Comment on above: Performed By: #### L IPID, CMP #### [facility] [address] [address] [address] Juliet García VC CONSULT FOLLOWUPon 2021 VC CONSULT FOLLOWUP Patient: CARLOS LOCKE Exam Date: 04/08/2022 : 1955 Gender:M Ordering : DR RACHEAL GRAVES M.D. Admission #: [id number] Family : Order #: [id number] CLICK HERE [...] Graves MD on 04/08/2022 at 11:30 Normal [facility] VC EXT VENOUS RT LIMITEDon 0 04-08-2022 VC EXT VENOUS RT LIMITED Patient: CARLOS LOCKE Exam Date: 04/08/2022 : 1955 Gender:M Ordering : DR RACHEAL GRAVES M.D. Admission #: [id number] Family : Order #: [id number] CLICK HERE TO VIEW EXAM RADIOLOGY REPORT [...] Graves MD on 04/08/2022 at 11:31 Normal [facility] VC INJ FOAM SCLERO W US MLTI on 04-03-2022 VC INJ FOAM SCLERO W US MLTI Patient: CARLOS LOCKE Exam Date: 04/03/2022 : 1955 Gender:M Ordering : DR RACHEAL GRAVES M.D. Admission #: [id number] Family : DR ANDERSEN EtelvinaRusty BOONE . Order #: [id number] CLICK HERE TO VIEW EXAM RADIOLOGY REPORT [...] av (more content not included)... Normal [facility] VC CONSULT FOLLOWUPon 2021 VC CONSULT FOLLOWUP Patient: CARLOS LOCEK Exam Date: 03/25/2022 : 1955 Gender:M Ordering : DR RACHEAL GRAVES M.D. Admission #: [id number] Family : Order #: [id number] CLICK HERE TO VIEW EXAM RADIOLOGY REPORT [...] Kenny M.D. on 03/25/2022 at 08:41 Normal [facility] VC EXT VENOUS RT LIMITEDon 0 03-25-2022 VC EXT VENOUS RT LIMITED Patient: CARLOS LOCKE Exam Date: 03/25/2022 : 1955 Gender:M Ordering : DR RACHEAL GRAVES M.D. Admission #: [id number] Family : Order #: [id number] CLICK HERE TO VIEW EXAM RADIOLOGY REPORT [...] Kenny M.D. on 03/25/2022 at 08:39 Normal [facility] VC ENDOVENOUS ABL 1ST V RTon 03-19-2022 VC ENDOVENOUS ABL 1ST V RT Patient: CARLOS LOCKE Exam Date: 03/19/2022 : 1955 Gender:M Ordering : DR RACHEAL GRAVES M.D. Admission #: [id number] Family : Order #: [id number] CLICK HERE TO VIEW EXAM RADIOLOGY REPORT [...] Racheal Graves MD on 03/19/2022 at 08:58 [facility] VC CONSULT FOLLOWUPon 2021 VC CONSULT FOLLOWUP Patient: CARLOS LOCKE Exam Date: 02/18/2022 : 1955 Gender:M Ordering : DR RACHEAL GRAVES M.D. Admission #: [id number] Family : Order #: [id number] CLICK HERE TO VIEW EXAM RADIOLOGY REPORT [...] Graves MD on 02/18/2022 at 09:45 Normal [facility] VC EXT VENOUS LT LIMITEDon 0 02-18-2022 VC EXT VENOUS LT LIMITED Patient: CARLOS LOCKE Exam Date: 02/18/2022 : 1955 Gender:M Ordering : DR RACHEAL GRAVES M.D. Admission #: [id number] Family : Order #: [id number] CLICK HERE TO VIEW EXAM RADIOLOGY REPORT [...] varicose veins remain off of SSV and joist setter mid posterior calf. *Exam performed in accordance with [facility] practice guidelines- Peripheral venous ultrasound, October 07, 2009. CONCLUSION: Post ablation occlusion of left leg varicose veins Dictated by: Racheal Graves MD on 02/18/2022 at 09:32 Approved by: Racheal Graves MD on 02/18/2022 at 09:36 [facility] VC INJ FOAM SCLERO W US MLTI on 02-13-2022 VC INJ FOAM SCLERO W US MLTI Patient: CARLOS LOCKE Exam Date: 02/13/2022 : 1955 Gender:M Ordering : DR RACHEAL GRAVES M.D. Admission #: [id number] Family : Order #: [id number] CLICK HERE TO VIEW EXAM RADIOLOGY REPORT [...] Kenny M.D. on 02/13/2022 at 10:15 Normal [facility] VC CONSULT FOLLOWUPon 2021 VC CONSULT FOLLOWUP Patient: CARLOS LOCKE Exam Date: 02/06/2022 : 1955 Gender:M Ordering : DR RACHEAL GRAVES M.D. Admission #: [id number] Family : Order #: [id number] CLICK HERE TO VIEW EXAM RADIOLOGY REPORT [...] Kenny M.D. on 02/06/2022 at 09:53 Normal [facility] VC EXT VENOUS LT LIMITEDon 0 02-06-2022 VC EXT VENOUS LT LIMITED Patient: CARLOS LOCKE Exam Date: 02/06/2022 : 1955 Gender:M Ordering : DR RACHEAL GRAVES M.D. Admission #: [id number] Family : Order #: [id number] CLICK HERE TO VIEW EXAM RADIOLOGY REPORT [...] Kenny M.D. on 02/06/2022 at 09:49 Normal [facility] GLYCOHEMOGLOBIN A1Con 2021 ADA RECOMMENDATION SEE BELOW Normal [facility] Comment on above: Result Comment: ADA RECOMMENDED LIMIT 4.0 - 6.0 ADA THERAPEUTIC TARGET < 7.0 ACTION SUGGESTED > 7.0 Performed By: #### A 1C #### [facility] [address] [address] [address] Juliet García Glucose [Mass/Vol] 108 mg/dL Normal [facility] Comment on above: Performed By: #### A 1C #### [facility] [address] [address] [address] Juliet García HbA1c (Bld) [Mass fraction] 5.4 % Normal 4.5-6.2 [facility] Comment on above: Performed By: #### A 1C #### [facility] [address] [address] [address] Juliet García PROF 14(COMP METB)on 022 Albumin [Mass/Vol] 4.0 g/dL Normal 3.4-5.[address] [facility] Comment on above: Performed By: #### C MP ####[facility] [address] [address]DrRusty García Albumin/Globulin [Mass ratio] 1.2 {ratio} Normal [facility] Comment on above: Performed By: #### C MP ####[facility] [address] [address]DrRusty García ALP [Catalytic activity/Vol] 89 U/L Normal 46-116 [facility] Comment on above: Performed By: #### C MP ####[facility] [address] [address]DrRusty García ALT [Catalytic activity/Vol] 81 U/L Critically high 16-63 [facility] Comment on above: Performed By: #### C MP ####[facility] [address] [address]DrRusty García Anion gap [Moles/Vol] 13.6 mmol/L Normal [facility] Comment on above: Performed By: #### C MP ####[facility] [address] [address]DrRusty García AST [Catalytic activity/Vol] 32 U/L Normal 15-37 [facility] Comment on above: Performed By: #### C MP ####[facility] [address] [address]DrRusty García Bilirubin [Mass/Vol] 0.5 mg/dL Normal 0.2-1.0 [facility] Comment on above: Performed By: #### C MP ####[facility] [address] [address]DrRusty García Calcium [Mass/Vol] 8.9 mg/dL Normal 8.5-10.[address] [facility] Comment on above: Performed By: #### C MP ####[facility] [address] [address]Dr. Juliet García Chloride [Moles/Vol] 106 mmol/L Normal 98-107 [facility] Comment on above: Performed By: #### C MP ####[facility] [address] [id number]. Juliet García CO2 [Moles/Vol] 27.1 mmol/L Normal 21.0-32.0 [facility] Comment on above: Performed By: #### C MP ####[facility] [address] [address]Dr. Juliet Ricky Creatinine [Mass/Vol] 1.46 mg/dL Critically high 0.70-1.30 [facility] Comment on above: Performed By: #### C MP ####[facility] [address] [place], [place] [address]Dr. Juliet Ricky EGFR-AF SIERRA LEONEAN 59 mL/min/1.73m2 Critically low >=60 [facility] Comment on above: Performed By: #### C MP ####[facility] [address] [place], [place] [address]Dr. Juliet Ricky EGFR-NON AF SIERRA LEONEAN 48 mL/min/1.73m2 Critically low >=60 [facility] Comment on above: Performed By: #### C MP ####[facility] [address] [address]Dr. Juliet Ricky Globulin (S) [Mass/Vol] 3.4 g/dL Normal [facility] Comment on above: Performed By: #### C MP ####[facility] [address] [address]Dr. Juliet Ricky Glucose [Mass/Vol] 93 mg/dL Normal 74-[address] [facility] Comment on above: Performed By: #### C MP ####[facility] [address] [address]Dr. Juliet García Potassium [Moles/Vol] 4.7 mmol/L Normal 3.5-5.1 [facility] Comment on above: Performed By: #### C MP ####[facility] [address] [id number]. Juliet García Protein [Mass/Vol] 7.4 g/dL Normal 6.4-8.2 [facility] Comment on above: Performed By: #### C MP ####[facility] [address] [address]Dr. Juliet García Sodium [Moles/Vol] 142 mmol/L Normal 136-145 [facility] Comment on above: Performed By: #### C MP ####[facility] [address] [address]Dr. Juliet García Urea nitrogen [Mass/Vol] 25.0 mg/dL Critically high 7.0-18.0 [facility] Comment on above: Performed By: #### C MP ####[facility] [address] [address]Dr. Juliet García Urea nitrogen/Creatinine [Mass ratio] 17.1 mg/mg Normal [facility] Comment on above: Performed By: #### C MP ####[facility] [address] [address]Dr. Juliet García VC ENDOVENOUS ABL 1ST V LTon 01-30-2022 VC ENDOVENOUS ABL 1ST V LT Patient: CARLOS LOCKE Exam Date: 01/30/2022 : 1955 Gender:M Ordering : DR RACHEAL GRAVES M.D. Admission #: [id number] Family : Order #: [id number] CLICK HERE TO VIEW EXAM RADIOLOGY REPORT PROCEDURE: VEIN CENTER ENDOVENOUS ABLATION FIRST VEIN LEFT COMPARISON: None. INDICATIONS: Pain co-occurrent and due to varicose veins of bilateral legs I83.813 OPERATIVE REPORT: The risks and benefits of the procedure had been previously discussed, and were rediscussed at length. Informed written consent was obtained by me and Manjit navas. Time out procedure was [...] Kenny M.D. on 01/30/2022 at 12:00 Normal [facility] POINT OF CARE GLUCOSEon 07 Glucose [Mass/Vol] 84 mg/dL Normal 74-106 [facility] Comment on above: Performed By: #### P OCGLUC #### [facility] [address] [address] [address] Juliet García VC COMP CONSULTATIONon 01-21 VC COMP CONSULTATION Patient: CARLOS LOCKE Exam Date: 01/21/2022 : 1955 Gender:M Ordering : DR RACHEAL GRAVES M.D. Admission #: [id number] Family : Order #: [id number] CLICK HERE TO VIEW EXAM RADIOLOGY REPORT [...] for years. The patient is retired from [employer] after working 42 years. The patient denies [...] additional information, and this was performed [facility]. See separate history and physical for [...] incompetent branch saphenous tributary/varicose veins. Bilateral incompetent joist setter veins. PHYSICAL EXAM: The right leg demonstrates [...] pulses were present bilaterally. IMPRESSION: 1. Bilateral qrkm-gz-xsxsanks great saphenous vein and mild right small [...] MD on 01/21/2022 at 11:46 Normal [facility] VC VENOUS REFLUX MARIE LMTon 0 01-21-2022 VC VENOUS REFLUX MARIE LMT Patient: CARLOS LOCKE Exam Date: 01/21/2022 : 1955 Gender:M Ordering : DR RACHEAL GRAVES M.D. Admission #: [id number] Family : DR ANDERSEN EtelvinaRusty BOONE . Order #: [id number] CLICK HERE TO VIEW EXAM RADIOLOGY REPORT [...] Compressibility: Normal. Flow: Mild deep venous reflux. Pipe Organ Technician: Post/prox calf 5.9mm, 0.7s reflux. Prox/med calf [...] MD on 01/21/2022 at 10:40 Normal [facility] POINT OF CARE GLUCOSEon 12-13 Glucose [Mass/Vol] 87 mg/dL Normal 74-106 [facility] Comment on above: Performed By: #### P OCGLUC ####[facility] [address] [place], [place] [address]Oh. Juliet García SURGICAL PATHOLOGYon 021 SURGICAL PATHOLOGY Specimen #: [id number] Submitting Physician: JULIET GARCÍA M.D. FINAL DIAGNOSIS [place], [place]; [id number] (12/07/2020) Liver, mass , biopsy (A1, A2, [...] do not hesitate to contact us at [phone] with questions or if additional follow up information becomes available. This case was reviewed in conjunction with the GI pathology fellow, Apoorva Diallo MD. The following stains were performed at the [facility] in order to further characterize this case: [...] in-situ hybridization tests have been determined by [facility] [place] ([facility] in a manner consistent with CLIA requirements. One or more of these tests have not been cleared or approved by the FDA. [facility] is regulated under CLIA as qualified to perform high-complexity testing. These tests are used for clinical purposes. They should not be regarded as investigational or for research. Nicolasa Cheema M.D. (Electronic Signature) _ SPECIMEN SUBMITTED A: 12 slides [id number] CLINICAL DATA Mass Date of Report: 03/27/2021 Date of Procedure: 03/16/2021 Date of Receipt: 03/15/2021 Submitted by: JULIET GARCÍA M.D. Location: Diagnostic interpretation performed at [facility], [address] [place] [address]. CLIA Number: [id number] Normal [facility] Comment on above: Performed By: #### S #### See report for performing lab information. Vital Signs Date Time Vital Sign Value Performing Clinician Facility 06-03-2023 09:59-0500 Blood Pressure Location LIZ HERNANDEZ [facility] 06-03-2023 09:59-0500 Diastolic blood pressure 74 mm[Hg] LIZ HERNANDEZ [facility] 06-03-2023 09:59-0500 Heart rate 70 /min LIZ HERNANDEZ [facility] 06-03-2023 09:59-0500 Respiratory rate 16 /min LIZ HERNANDEZ [facility] 06-03-2023 09:59-0500 Systolic blood pressure 138 mm[Hg] LIZ HERNANDEZ [facility] 05-23-2022 09:45-0500 Body height 187.96 cm Alejandra Olexa Other [employer] Other 05-23-2022 09:45-0500 Body mass index (BMI) [Ratio] 40.57 kg/m2 Alejandra Olexa Other [employer] Other 05-23-2022 09:45-0500 Body weight 143.34 kg Alejandra Olexa Other [employer] Other 08-07-2021 14:15-0500 Body height 187.96 cm Alejandra Olexa Other [employer] Other 08-07-2021 14:15-0500 Body mass index (BMI) [Ratio] 40.64 kg/m2 Alejandra Olexa Other [employer] Other 08-07-2021 14:15-0500 Body weight 143.61 kg Alejandra Olexa Other [employer] Other 04-12-2021 10:30-0400 Body height 187.96 cm Racheal Daniels Other [employer] Other 04-12-2021 10:30-0400 Body mass index (BMI) [Ratio] 41.75 kg/m2 Racheal Daniels Other [employer] Other 04-12-2021 10:30-0400 Body weight 147.51 kg Racheal Daniels Other [employer] Other 04-12-2021 10:30-0400 Diastolic blood pressure 71 mm[Hg] Racheal Daniels Other [employer] Other 04-12-2021 10:30-0400 Systolic blood pressure 131 mm[Hg] Racheal Daniels Other [employer] Other Encounters Encounter Date Encounter Type Care Provider Facility Start: 11-04-2023 ambulatory PA-C LIZ HERNANDEZ Facility:[facility] Start: 07-23-2023 End: 07-23-2023 ambulatory HARINDER RUGGIERO Not Available Start: 06-30-2023 End: 07-01-2023 ambulatory Donaldo Sparrow MD Facility:[facility] Start: 06-03-2023 End: 06-04-2023 ambulatory VLADISLAVC LIZ HERNANDEZ Facility:[facility] Start: 06-03-2023 End: 06-03-2023 Patient encounter procedure LIZ HERNANDEZ [facility] Start: 01-06-2023 End: 01-07-2023 ambulatory Donaldo Sparrow MD Facility:[facility] Start: 12-05-2022 End: 12-06-[address] FELISA BERRIOS . Facility: Start: 12-03-2022 End: 12-04-[address] FELISA BERRIOS . Facility:[facility] Start: 11-29-2022 End: 11-30-2022 ambulatory CRISPIN OLVERAMIPATHLiza . Facility:[facility] Start: 11-12-2022 End: 11-13-[address] FELISA BERRIOS . Facility:[facility] Start: 11-05-2022 End: 11-06-[address] FELISA BERRIOS . Facility:[facility] Start: 10-28-2022 End: 10-29-[address] FELISA BERRIOS . Facility:[facility] Start: 10-23-2022 ambulatory FELISA BERRIOS Facility:[facility] Start: 10-21-2022 End: 10-21-[address] FELISA BERRIOS . Facility:[facility] Start: 10-18-2022 Encounter for preprocedural cardiovascular examination [facility] Start: 10-18-2022 Encounter for preprocedural laboratory examination TONIO Latham [facility] Start: 10-16-[address] FELISA BERRIOS . [...] . Facility:[facility] Start: 09-06-2022 ambulatory FELISA BERRIOS Facility:[facility] Start: 08-26-2022 End: 08-27-[address] FELISA BERRIOS . Facility:[facility] Start: 08-06-2022 End: 08-07-2022 ambulatory TONIO BELL Facility:[facility] Start: 07-31-2022 End: 07-31-2022 ambulatory BENTLEY MACK [facility] Start: 07-31-2022 End: 08-01-[address] [...] 05-23-2022 End: 05-23-2022 ambulatory Alejandra Cain Other [employer] Other Start: 05-23-2022 Office outpatient vi sit 15 minutes Alejandra Cain [facility] Start: 05-03-2022 End: 05-04-[address] [...] Facility:[facility] Start: 02-18-2022 End: 02-19-[address] RAHCEAL GRAVES Facility:[facility] Start: 02-17-[address] FELISA [...] 08-07-2021 End: 08-07-2021 ambulatory Alejandra Cain Other [employer] Other Start: 08-07-2021 Office outpatient vi sit 15 minutes Alejandra Cain [facility] [place] Start: 04-12-2021 Office outpatient vi sit 15 minutes Racheal Daniels [facility] Procedures Date Procedure Procedure Detail Performing Clinician Start: 05-03-[address] RACHEAL GRAVES Comment on above: Performed By: #### P SAD #### [facility] [address] [place] [address] Dr. Juliet García Start: 12-07-2020 CT guided biopsy NOLAFELTON SIMONS DAVID Comment on above: LIVER. NO SEDATION. Arthroscopy of knee LIZ HERNANDEZ Bilateral cataracts (disorder) LIZ HERNANDEZ H/O: vasectomy LIZ De Jesus [employer] (substance) JOSE Hazel DAVID Comment on above: Toe Tonsillectomy LIZ HERNANDEZ Immunizations Immunization Date Immunization Notes Care Provider Fa eitanty 04-20-2023 SARS-CoV-2 mRNA (tozinameran 5y-11y) vaccine LIZ HERNANDEZ [facility] Comment on above: Result Comment: covi d 19 mRNA ([facility]) 04-17-2022 influenza virus vacc ine, unspecified formulation LIZ HERNANDEZ [facility] 03-23-2022 SARS-CoV-2 (COVID-19 ) [id number] LIZ HERNANDEZ [facility] 10-23-2021 SARS-CoV-2 mRNA (euxizgafbxy-pmub-swvlfn e) vaccine LIZ DAVID [facility] 05-27-2021 pneumococcal polysaccharide vaccine, 23 valent LIZ DAVID [facility] 05-06-2021 SARS-CoV-2 (COVID-19 ) mRNA BNT-162b2 vax LIZ DAVID [facility] Comment on above: Result Comment: 2021: [id number] 04-07-2021 influenza virus vacc ine, unspecified formulation LIZ DAVID [facility] 09-18-2020 SARS-CoV-2 (COVID-19 ) mRNA [id number] vax LIZ DAVID [facility] [place] [facility] 04-19-2020 influenza virus vacc ine, unspecified formulation LIZ DAVID [facility] [place] 04-15-2020 influenza virus vacc ine, unspecified formulation LIZ DAVID [facility] 04-20-2018 influenza virus vacc ine, unspecified formulation LIZ DAVID [facility] 03-24-2018 influenza virus vacc ine, unspecified formulation LIZ DAVID [facility] 05-01-2013 influenza virus vacc ine, unspecified formulation LIZ DAVID [facility] Payers Date Payer Category Payer Medicare 2022 Unknown [id number] 2022 Unknown 2021 Medicare [id number] 2019 Unknown [id number] 2. [id number] 1959 Medicare [id number] 1956 Unknown [id number] 2.16.84 0.1.347477.3.579.2.593 1956 Unknown [id number] 2.16.84 0.1.554127.3.579.2.593 1956 Unknown [id number] 2.16.84 0.1.304968.3.579.2.593 1956 Unknown [id number] 2.16.84 0.1.522070.3.579.2.593 1956 Unknown [id number] 2.16.84 0.1.412437.3.579.2.593 1956 Unknown [id number] 2.16.84 0.1.101748.3.579.2.593 1956 Unknown [id number] 2.16.84 0.1.294335.3.579.2.593 1956 Unknown [id number] 2.16.84 0.1.780154.3.579.2.593 1956 Unknown [id number] 2.16.84 0.1.284262.3.579.2.593 1956 Unknown [id number] 2.16.84 0.1.041506.3.579.2.593 1956 Unknown [id number] 2.16.84 0.1.273092.3.579.2.593 1956 Unknown [id number] 2.16.84 0.1.527653.3.579.2.593 1956 Unknown [id number] 2.16.84 0.1.275144.3.579.2.593 1956 Unknown [id number] 2.16.84 0.1.522540.3.579.2.593 1956 Unknown [id number] 2.16.84 0.1.390602.3.579.2.593 1956 Unknown [id number] 2.16.84 0.1.635596.3.579.2.593 1956 Unknown [id number] 2.16.84 0.1.524643.3.579.2.593 1956 Unknown [id number] 2.16.84 0.1.926657.3.579.2.593 1956 Unknown [id number] 2.16.84 0.1.308673.3.579.2.593 1956 Unknown [id number] 2.16.84 0.1.063533.3.579.2.593 1956 Unknown [id number] 2.16.84 0.1.250262.3.579.2.593 1956 Unknown [id number] 2.16.84 0.1.363633.3.579.2.593 1956 Unknown [id number] 2.16.84 0.1.281123.3.579.2.593 1956 Unknown [id number] 2.16.84 0.1.508312.3.579.2.593 1956 Unknown [id number] 2.16.84 0.1.289240.3.579.2.593 1956 Unknown [id number] 2.16.84 0.1.023675.3.579.2.593 1956 Unknown [id number] 2.16.84 0.1.593192.3.579.2.593 1956 Unknown [id number] 2.16.84 0.1.082092.3.579.2.593 1956 Unknown [id number] 2.16.84 0.1.456624.3.579.2.593 1956 Unknown [id number] 2.16.84 0.1.675468.3.579.2.593 1956 Unknown [id number] 2.16.84 0.1.214439.3.579.2.593 1956 Unknown [id number] 2.16.84 0.1.664196.3.579.2.593 1956 Unknown [id number] 2.16.84 0.1.987882.3.579.2.593 1956 Unknown [id number] 2.16.84 0.1.859253.3.579.2.593 1956 Unknown [id number] 2.16.84 0.1.076705.3.579.2.593 1956 Unknown [id number] 2.16.84 0.1.153139.3.579.2.593 1956 Unknown [id number] 2.16.84 0.1.611178.3.579.2.593 1956 Unknown [id number] 2.16.84 0.1.335454.3.579.2.593 1956 Unknown [id number] 2.16.84 0.1.509554.3.579.2.593 1956 Unknown [id number] 2.16.84 0.1.746011.3.579.2.593 1956 Unknown [id number] 2.16.8 40.1.691441.3.579.2.727 1956 Unknown [id number] 2.16.8 40.1.217275.3.579.2.727 1956 Unknown [id number] 2.16.8 40.1.556558.3.579.2.727 1956 Unknown [id number] 2.16.8 40.1.925462.3.579.2.727 1956 Unknown [id number] 2.16. 840.1.786843.3.579.2.196 1956 Unknown [id number] 2.16. 840.1.165261.3.579.2.196 1956 Unknown [id number] 2.16. 840.1.928785.3.579.2.196 1956 Unknown [id number] 2.16.84 0.1.696494.3.579.2.1259 Social History Date Type Detail Facility Sex Assigned At [facility] Start: 06-03-2023 Tobacco smoking status Never s moked tobacco (finding) [facility] Tobacco smoking status Never [facility] Functional Status Date Assessment Result Facility 06-03-2023 Functional Status N/A [facility] Clinical Notes 04-12-2021 to 06-03-2023 Note [...] treatment? Where to find more information [employer] [employer]: www.cancer.org [employer] [employer]: www.auanet.org Contact a health care [...] provider. Document Revised: 12/24/2021 Document Reviewed: 12/24/2021 [employer] Patient Education 2022 [employer]. Follow Up Care 05/29/2022 11:47:27 With:DAVID IVAN, LIZ Juarez, URL Address: [address] [place] [address] [phone] When: Unknown Comments:6 mos w/ PSA [facility] 12-03-2022 Note PROCEDURE: XR FOOT L [...] authenticated by: ELIN KENNY Date: 2022-12-03 09:57 [facility] 11-12-2022 Note PROCEDURE: XR FOOT L T [...] by: ZAFAR FERRER Date: 2022-11-12 13:59 [facility] 10-22-2022 Note PROCEDURE: XR FOOT L T [...] authenticated by: ELIN KENNY Date: 2022-10-22 07:48 [facility] 10-22-2022 Note PROCEDURE: XR FOOT L T 2V HISTORY: Pain COMPARISON: XR foot left 10/21/2022 FINDINGS: BONES:Multiple intraoperative spot fluoroscopic images demonstrate mechanical fusion of the first metatarsophalangeal joint and resection of head of first proximal phalanx. IMPRESSION: 1. Surgical changes of left first toe as detailed above. Electronically authenticated by: ELIN KENNY Date: 2022-10-22 07:46 [facility] 07-31-2022 Note Currently stable [facility] 07-31-2022 Note Hypertension is well controlled 114/64 Continue lisinopril 5 mg Recent CR elevated 1.59- his cr typically has been 1.2-1.4 - He has been on antibiotics for Lt foot infection- DFU with wound care. [facility] 07-31-2022 Note Lipid abnormalities are currently well controlled with lipitor 20 mg- LDL currently 58.6 on labs 07/26/2022 Liver function 04/2022 were normal [facility] 07-31-2022 Note UTP CARDIOLOGY PROGR ESS [...] RTC 1 year or earlier if needed [facility] 07-31-2022 Note Patient here for 6 [...] All other systems reviewed and are negative. [facility] 07-31-2022 Note CONSULTATION PROCEDURE DATE: 07/31/2022 [...] the clinic in three months' time. [facility] 07-25-2022 Note CONSULTATION CONSULTATION DATE: 07/25/2022 HISTORY [...] [place] vacation, where he visited multiple [employer] may[place] and had a lot of increased [...] and will be contacted upon approval. [facility] 07-24-2022 Note PROCEDURE: XR FOOT L T [...] authenticated by: ELIN KENNY Date: 2022-07-24 10:21 [facility] 06-10-2022 Note PROCEDURE: XR KNEE L T 4V or > HISTORY: Pain in left knee ; chronic left knee pain COMPARISON: XR knee bilateral 05/31/2021 FINDINGS: BONES:Marked narrowing of the medial joint space with suspected xfrw-is-bgch articulation. Moderate-marked narrowing of the lateral compartment. Mild narrowing of anterior compartment. Small periarticular osteophytes involving the margins of all 3 compartments. No fracture or dislocation. SOFT TISSUES:No visible soft tissue swelling. EFFUSION:Small joint effusion. OTHER: Negative. IMPRESSION: 1. Marked degenerative joint disease. Stable to minimally progressed. Electronically authenticated by: ELIN KENNY Date: 2022-06-10 19:35 [facility] 05-23-2022 Evaluation note Encounter Date Diagnosis Assessment [...] Pain in left knee (ICD-10 - M25.562) [employer] Other 10-11-2022 NoteCONSULTATION CONSULTATION DATE: 04/23/2022 CHIEF [...] the time being. CC: Felisa Berrios M.D.[facility] [id number] NoteCONSULTATION CONSULTATION DATE: 04/04/2022 HISTORY OF PRESENT [...] indicated. Patient agreed with plan of care.[facility] [id number] Note CONSULTATION CONSULTATION DATE: 02/14/2022 HISTORY OF [...] time unless otherwise indicated. Patient acknowledges understanding.[facility] [id number] NoteCONSULTATION PROCEDURE DATE: 02/14/2022 PREOPERATIVE DIAGNOSIS: Bilateral [...] will be followed up in the office.[facility] [id number] Evaluation note* Encounter Date Diagnosis Assessment Notes [...] Pain in left knee (ICD-10 - M25.562) [employer] Other 09-30-2021 Evaluation note* Encounter Date Diagnosis Assessment Notes Treatment Notes Treatment Clinical Notes Mar, Liver hemangioma (ICD-10 - D18.03) Mar, HODGES (nonalcoholic steatohepatitis) (ICD-10 - K75.81) [employer] Other Evaluation + Plan note Future Appointments Appointment Date:11/04/2023 08:30:00 AM Scheduled Provider:LIZ HERNANDEZ PA-C Location:[facility] Appointment Type:URO Office Visit Diagnostic Tests Pending * PSA Total 06/03/23 [facility] History general Narrative - Reported* Type Description Date Medical History DM II Medical History HTN Medical History hyperlipidemia Medical History gout Surgical History knee surgery Surgical History tonsillectomy Surgical History vasectomy Surgical History sinus surgery Surgical History back injections Hospitalization History SEE ABOVE SURGICAL HX [facility] [employer] Other Hospital course Narrative No data available for this section [facility] progress note No data available for this section [facility] Summary Purpose Family History No Family [...] section and content) DATE CREATED AUTHOR 03/29/2021 [facility] DATE CREATED AUTHOR AUTHOR'S ORGANIZ ATION 08/06/2022 [facility] DATE CREATED AUTHOR AUTHOR'S ORGANIZ ATION 12/20/2022 [facility] DATE CREATED AUTHOR AUTHOR'S ORGANIZ ATION 07/01/2023 [facility] DATE CREATED AUTHOR AUTHOR'S ORGANIZ ATION 07/05/2023 [facility] DATE CREATED AUTHOR AUTHOR'S ORGANIZ ATION 07/24/2023 [facility] EPIC REASON FOR VISIT (unrecogniz ed section and content) PT HERE FOR 4 WEEK FOLLOW UP LIVER LESION LABS WERE ORDERED AT LAST OFFICE VISITBilateral Knee PainRecheck Bilateral Knees Patient Care team informatio n (unrecognized section and content) Personnel Name: RUBEN MCGUIRE, FELISA Juarez Address: Address: [address] [place] [id number] FOR RECORDS PERTAINING TO PATIENTS WHO ARE [...] BE BASED ON THE PRIMARY CLINICAL RECORDS. [facility] [employer] [facility]. provides no warranty or guarantee of the accuracy or completeness of information in this document.
[2023-07-25 08:04] LABS: Basophils Percent Auto 0.6 % (0.2-2.0); Eosinophils Absolute Auto 0.4 10^3/uL (0.0-0.7); Eosinophils Percent Auto 5.4 % (0.9-7.0); Hematocrit 46.8 % (42.0-54.0); Hemoglobin 15.5 g/dL (14.0-18.0); Immature Granulocytes Abs Auto 0.02 10^3/uL (0.00-0.03); Immature Granulocytes Pct Auto 0.3 % (0.0-0.5); Lymphocytes Absolute Auto 1.8 10^3/uL (1.2-3.8); Lymphocytes Percent Auto 26.7 % (20.5-60.0); Mean Corpuscular HGB Conc 33.1 g/dL (29.9-35.2); Mean Corpuscular Hemoglobin 32.9 pg (25.9-34.0); Mean Corpuscular Volume 99.4 fL (80.0-94.0); Mean Platelet Volume 9.1 fL (9.5-13.5); Monocytes Absolute Auto 0.5 10^3/uL (0.3-0.8); Monocytes Percent Auto 7.7 % (1.7-12.0); Neutrophils Absolute Auto 4.1 10^3/uL (1.4-6.5); Neutrophils Percent Auto 59.3 % (43.0-75.0); Platelet Count 163 10^3/uL (150-450); Red Blood Count 4.71 10^6/uL (4.70-6.10); Red Cell Distribution Width 13.5 % (11.0-15.0); White Blood Count 6.9 10^3/uL (4.0-11.0)
[2023-07-25 08:58] LABS: Alanine Aminotransferase 60 U/L (16-63); Albumin Level 3.7 g/dL (3.4-5.0); Alkaline Phosphatase 84 U/L (46-116); Anion Gap 15.2; Aspartate Amino Transferase 24 U/L (15-37); BUN Creatinine Ratio 17.9; Bilirubin Total 0.6 mg/dL (0.2-1.0); Calcium 8.8 mg/dL (8.5-10.1); Carbon Dioxide 27.4 mmol/L (21.0-32.0); Chloride 105 mmol/L (98-107); Chol HDL Ratio 4.2; Cholesterol 150 mg/dL (<=200); Estimated GFR (African America >60 (>=60); Estimated GFR (Non-African Ame 53 (>=60); Globulin 3.8 g/dL; Glucose 90 mg/dL (74-106); HDL Cholesterol 36 mg/dL (40-60); Potassium 4.6 mmol/L (3.5-5.1); Sodium 143 mmol/L (136-145); Thyroid Stimulating Hormone 2.907 uIU/mL (0.358-3.740); Total Protein 7.5 g/dL (6.4-8.2); Triglycerides 206 mg/dL (<=150); VLDL CHOLESTEROL 41.2 mg/dL
[2023-07-25 09:11] LABS: Prostate Specific Antigen Scrn 1.07 ng/mL (<=4.00)
[2023-07-25 09:13] LABS: Estimated Average Glucose 108 mg/dL; Glycohemoglobin A1C 5.4 % (4.5-6.2)
== END 2023-07-25 07:27 | disposition home or self-care (01) ==
LOC: LAB 07:31
PROVIDERS: PCP Family Medicine; Visit Provider Family Medicine
DX: Z00.00 Encounter for general adult medical examination without abnormal findings (principal)
CPT/HCPCS: 36415; 80053; 80061; 83036; 84443; 85025; G0103

== ENCOUNTER 2023-07-31 08:40 | Outpatient (OUT) | payer BC, SELFPAY ==
--- OUTSIDE RECORDS SUMMARY | 2023-07-31 08:44 | XMS_ITS | CCD ---
Author Name Unknown Address [address] [place] [address] Organization [facility] Care Team Providers Care Contracts Advisor Name Role Phone Frances Racheal Unavailable Alejandra [...] RACHEAL Ayala Consulting Unavailable RUBEN ., DR EFLISA Juarez Primary Care Unavailable [facility] [place] STEWART Attending Unavailable [facility] [place] [place] STEWART Admitting Unavailable [facility] [place] [place] STEWART Consulting Unavailable [facility], DR RACHEAL [...] Attending Unavailable FELISA BERRIOS Primary Care Physician [phone] MARZENA HERNANDEZ Attending Unavailab MARZENA Cerna Attending Unavailab FELISA Ruiz Attending Unavailable FELISA BERRIOS Attending Unavailable Kyara MCGUIRE, Donaldo Cunningham Attending Unavailable Kyara MCGUIRE, Donaldo Cunningham Attending Unavailable Kyara MCGUIRE, Donaldo Cunningham Attending Unavailable HARINDER RUGGIERO Attending Unavailable Allergies Allergy Classification Reported Allergen(s) Allergy Type Date of Onset Reaction(s) Facility (3 sources) Acetaminophen / oxyCODONE Drug Allergy Unknown [employer] Other (1 source) Acetaminophen / oxyCODONE; Translations: [OXYCODONE-ACETAM INOPHEN] Drug Allergy 3 [facility] Repository (3 sources) oxyCODONE; Translations: [OXYCODONE] Drug Allergy 3 Hyperactive behavior (finding) [facility] Repository (1 source) Acetaminophen / oxyCODONE Drug Allergy [facility] Repository (1 source) oxyCODONE; Translations: [OxyCODONE Hydrochloride] Drug Allergy [facility] Repository Medications Current Medications Medication Drug [...] 20 tab(s), Refills(s) 3, Pharmacy: [facility]/pharmacy #[id number], 188, cm, 06/03/23 10:01:00 EST, [...] 2 tab(s), Refills(s) 0, Pharmacy: [facility]/pharmacy #[id number], 185.4, cm, 12/05/20 11:15:00 EDT, [...] Resolved: 2 Chronic Other aftercare (1 source) superintendent terminal (current) use of oral hypoglycemic drugs; Translations: [LONG-TERM USE ORAL HYPOGLYCEMIC DX] Onset: 3 Episodic Other aftercare (1 source) Other half-way (current) drug therapy; Translations: [OTH LONG-TERM CURRENT DRUG THERAPY] Onset: 3 Episodic Other [...] Lab Reportson 07-01-2023 Lab Reports [id number]#1. 00TIFF Normal [facility] Lab Reportson 06-06-2023 Lab Reports [id number]#1.00 TIFF Normal [facility] RAD - MISCon 06-04-2023 RAD - MISC [id number]#1.00 TIFF Normal [facility] Screenson 06-04-2023 Screens [id number]#1. 00TIFF Normal [facility] Patient Educationon 06-03-20 Patient Education Oncology [...] Where to find more information ? The [place] [employer]: www.cancer.org ? [place] [employer]: www.auanet.org Contact a health care [...] adds flu (more content not included)... Normal [facility] Urology Office/Clinic Noteon 06-03-2023 Urology Office/Clinic [...] When Contact Information LIZ HERNANDEZ PA-C, URL [address] [place] [address] [phone] Additional Instructions: 6 mos w/ PSA Patient [...] guided bi (more content not included)... Normal [facility] Comment on above: Result Comment: Elec tronically Signed By: LIZ HERNANDEZ PA-C\.br\Date and Time Signed: 06/03/23 11:48 EST\.br\Electronically Co-Signed By: Maru Burr\.br\Date and Time Co-Signed: 06/03/23 10:26 EST Immunization Recordson 04-23 Immunization Records [id number]#1. 00TIFF Normal [facility] Consultation Noteon 04-15-20 Consultation Note [id number]#1.0 0CD:127 Normal [facility] RAD - MISCon 12-24-2022 RAD - MISC [id number]#1.00 CD:127 Normal [facility] XR LSPINE W_OBLS AND FLEX_EX Ton [...] by: RACHEAL GRAVES Date: 2022-12-05 09:46 Normal [facility] Consultation Noteon 12-05-19 Consultation Note [id number]#1.0 0CD:127 Normal [facility] Operative Reporton Operative Report [id number]#1.0 0CD:127 Normal [facility] CBC AUTO DIFFon 10-21-2022 BASO # 0.1 103/ul Normal 0.0-0.1 [facility] Comment on above: Performed By: #### P OCGLUC #### [facility] [address] [address] [address] Juliet García Basophils/100 WBC (Bld) 0.7 % Normal 0.2-2.0 [facility] Comment on above: Performed By: #### P OCGLUC #### [facility] [address] [place] [address] Dr. Juliet García EO # 0.4 103/ul Normal 0.0-0.7 [facility] Comment on above: Performed By: #### P OCGLUC #### [facility] [address] [address] [address] Juliet García Eosinophils/100 WBC (Bld) 5.3 % Normal 0.9-7.0 [facility] Comment on above: Performed By: #### P OCGLUC #### [facility] [address] [place] [address] Dr. Juliet García Erythrocyte distribution width (RBC) [Ratio] 14.0 % Normal 11.0-15.0 [facility] Comment on above: Performed By: #### P OCGLUC #### [facility] [address] [place] [address] Dr. Juliet García Hematocrit (Bld) [Volume fraction] 43.6 % Normal 42.0-54.0 [facility] Comment on above: Performed By: #### P OCGLUC #### [facility] [address] [place] [address] Dr. Juliet García Hemoglobin (Bld) [Mass/Vol] 14.9 g/dL Normal 14.0-18.0 [facility] Comment on above: Performed By: #### P OCGLUC #### [facility] [address] [place] [address] Dr. Juliet García IG # 0.03 10e3/ul Normal 0.00-0.03 [facility] Comment on above: Performed By: #### P OCGLUC #### [facility] [address] [place] [address] Dr. Juliet García IG % 0.4 % Normal 0.0-0.5 [facility] Comment on above: Performed By: #### P OCGLUC #### [facility] [address] [place] [address] Dr. Juliet García LYMPH # 2.0 103/ul Normal 1.2-3.8 [facility] Comment on above: Performed By: #### P OCGLUC #### [facility] [address] [place] [address] Dr. Juliet García Lymphocytes/100 WBC (Bld) 29.3 % Normal 20.5-60.0 [facility] Comment on above: Performed By: #### P OCGLUC #### [facility] [address] [address] [address] Juliet García MANUAL DIFF REQ NO Normal [facility] Comment on above: Performed By: #### P OCGLUC #### [facility] [address] [address] [address] Juliet García MCH (RBC) [Entitic mass] 33.4 pg Normal 25.9-34.0 [facility] Comment on above: Performed By: #### P OCGLUC #### [facility] [address] [address] [address] Juliet García MCHC (RBC) [Mass/Vol] 34.2 g/dL Normal 29.9-35.2 [facility] Comment on above: Performed By: #### P OCGLUC #### [facility] [address] [address] [address] Juliet García MCV (RBC) [Entitic vol] 97.8 fL Critically high 80.0-94.0 [facility] Comment on above: Performed By: #### P OCGLUC #### [facility] [address] [address] [address] Juliet García MONO # 0.7 103/ul Normal 0.3-0.8 [facility] Comment on above: Performed By: #### P OCGLUC #### [facility] [address] [address] [address] Juliet García Monocytes/100 WBC (Bld) 9.9 % Normal 1.7-12.0 [facility] Comment on above: Performed By: #### P OCGLUC #### [facility] [address] [address] [address] Juliet García NEUT # 3.7 103/ul Normal 1.4-6.5 [facility] Comment on above: Performed By: #### P OCGLUC #### [facility] [address] [address] [address] Juliet García Neutrophils/100 WBC (Bld) 54.4 % Normal 43.0-75.0 [facility] Comment on above: Performed By: #### P OCGLUC #### [facility] [address] [address] [address] Juliet García Platelet mean volume (Bld) [Entitic vol] 9.0 fL Critically low 9.5-13.5 [facility] Comment on above: Performed By: #### P OCGLUC #### [facility] [address] [address] [address] Juliet García PLT 211 103/ul Normal 150-450 [facility] Comment on above: Performed By: #### P OCGLUC #### [facility] [address] [address] [address] Juliet García RBC 4.46 106/ul Critically low 4.70-6.10 [facility] Comment on above: Performed By: #### P OCGLUC #### [facility] [address] [address] [address] Juliet García WBC 6.8 103/ul Normal 4.0-11.0 [facility] Comment on above: Performed By: #### P OCGLUC #### [facility] [address] [address] [address] Juliet García POINT OF CARE GLUCOSEon 10-12 Glucose [Mass/Vol] 100 mg/dL Normal 74-106 [facility] Comment on above: Performed By: #### P OCGLUC #### [facility] [address] [address] [address] Juliet García Glucose [Mass/Vol] 94 mg/dL Normal 74-106 [facility] Comment on above: Performed By: #### A 1C #### [facility] [address] [address] [address] Juliet García Lab Reportson 10-14-2022 Lab Reports [id number]#1.0 0CD:127 Normal [facility] Correspo ndenceon 10-14-2022 Outside [facility] Correspondence [id number]#1.0 0CD:127 Normal [facility] PROF CHEM 8 (BAS METB)on Anion gap [Moles/Vol] 14.0 mmol/L Normal [facility] Comment on above: Performed By: #### B MP #### [facility] [address] [address] [address] Juliet García Calcium [Mass/Vol] 9.0 mg/dL Normal 8.5-10.[address] [facility] Comment on above: Performed By: #### B MP #### [facility] [address] [address] [address] Juliet García Chloride [Moles/Vol] 107 mmol/L Normal 98-107 [facility] Comment on above: Performed By: #### B MP #### [facility] [address] [address] [address] Juliet García CO2 [Moles/Vol] 28.7 mmol/L Normal 21.0-32.0 [facility] Comment on above: Performed By: #### B MP #### [facility] [address] [address] [address] Juliet García Creatinine [Mass/Vol] 1.41 mg/dL Critically high 0.70-1.30 [facility] Comment on above: Performed By: #### B MP #### [facility] [address] [address] [address] Juliet García EGFR-AF CANADIAN >60 Normal >=60 [facility] Comment on above: Performed By: #### B MP #### [facility] [address] [address] [address] Juliet García EGFR-NON AF CANADIAN 50 mL/min/1.73m2 Critically low >=60 [facility] Comment on above: Performed By: #### B MP #### [facility] [address] [address] [address] Juliet García Glucose [Mass/Vol] 95 mg/dL Normal 74-[address] [facility] Comment on above: Performed By: #### B MP #### [facility] [address] [address] [address] Juliet García Potassium [Moles/Vol] 4.7 mmol/L Normal 3.5-5.1 [facility] Comment on above: Performed By: #### B MP #### [facility] [address] [address] [address] Juliet García Sodium [Moles/Vol] 145 mmol/L Normal 136-[address] [facility] Comment on above: Performed By: #### B MP #### [facility] [address] [address] [address] Juliet García Urea nitrogen [Mass/Vol] 25.0 mg/dL Critically high 7.0-18.0 [facility] Comment on above: Performed By: #### B MP #### [facility] [address] [address] [address] Juliet García Urea nitrogen/Creatinine [Mass ratio] 17.7 mg/mg Normal [facility] Comment on above: Performed By: #### B MP #### [facility] [address] [address] [address] Juliet García Office Visiton 07-31-2022 Follow-up visit [id number] Carlos Locke 1955 M Date Provider Department Center 07/31/2022 BENTLEY MENDOZA [facility] Family History Problem Relation Age of Onset Stroke Father Family Status - Relation Status Age at Father Level of Service:84866 [place] OFFICE/OUTPATIENT ESTABLISHED MOD MDM 30-39 MIN Reason for Visit and Comments: Hyperlipidemia [182] Hypertension [573946] history of PE [Other] Normal [facility] CULTURE WOUNDon 07-24-2022 CULTURE WOUND Culture Observations : No growth of anaerobes at 72 hours. Isolate 1 Stenotrophomonas maltophilia Moderate growth of ORGANISM 1 Stenotrophomonas maltophilia ANTIBIOTIC M.I.C RX STATUS Levofloxacin 1 S F Trimethoprim/Sulfameth oxazole <=20 S F Normal [facility] Comment on above: Performed By: #### W OUNDCX ####[facility] [address] [place], [place] [address]MgDr. Juliet García GLYCOHEMOGLOBIN A1Con 2022 ADA RECOMMENDATION SEE BELOW Normal [facility] Comment on above: Result Comment: ADA RECOMMENDED LIMIT 4.0 - 6.0 ADA THERAPEUTIC TARGET < 7.0 ACTION SUGGESTED > 7.0 Performed By: #### A 1C #### [facility] [address] [address] [address] Juliet García Glucose [Mass/Vol] 111 mg/dL Normal [facility] Comment on above: Performed By: #### A 1C #### [facility] [address] [address] [address] Juliet García HbA1c (Bld) [Mass fraction] 5.5 % Normal 4.5-6.2 [facility] Comment on above: Performed By: #### A 1C #### [facility] [address] [address] [address] Juliet García ECHOCARDIO M/2D COMPLETEon 1 08-29-2021 ECHOCARDIO M/2D COMPLETE Patient: CARLOS LOCKE Exam Date: 06/28/2022 : 1955 Gender:M Ordering : DR LOLY BARNARD M.D. Admission #: [id number] Family : Order #: [id number] CLICK HERE TO VIEW EXAM ECHOCARDIOGRAM REPORT [...] on 07/04/2022 at 13:28 Approved by: Scout Mcmnaus M.D. on 07/04/2022 at 13:38 Normal [facility] URIC ACID SERUMon 06-10-2022 Urate [Mass/Vol] 6.9 mg/dL Normal 3.5-7.2 [facility] Comment on above: Performed By: #### A 1C #### [facility] [address] [place] [address] Dr. Juliet García XR KUB 1 VIEWon [...] RACHEAL GRAVES Date: 2022-05-28 07:31 Normal [facility] CBC AUTO DIFFon 05-03-2022 BASO # 0.1 103/ul Normal 0.0-0.1 [facility] Comment on above: Performed By: #### C BC #### [facility] [address] [place] [address] Dr. Juliet García Basophils/100 WBC (Bld) 0.9 % Normal 0.2-2.0 [facility] Comment on above: Performed By: #### C BC #### [facility] [address] [place] [address] Dr. Juliet García EO # 0.4 103/ul Normal 0.0-0.7 [facility] Comment on above: Performed By: #### C BC #### [facility] [address] [place] [address] Dr. Juliet García Eosinophils/100 WBC (Bld) 5.2 % Normal 0.9-7.0 [facility] Comment on above: Performed By: #### C BC #### [facility] [address] [place] [address] Dr. Juliet García Erythrocyte distribution width (RBC) [Ratio] 13.6 % Normal 11.0-15.0 [facility] Comment on above: Performed By: #### C BC #### [facility] [address] [place] [address] Dr. Juliet García Hematocrit (Bld) [Volume fraction] 40.5 % Critically low 42.0-54.0 [facility] Comment on above: Performed By: #### C BC #### [facility] [address] [place] [address] Dr. Juliet García Hemoglobin (Bld) [Mass/Vol] 13.7 g/dL Critically low 14.0-18.0 [facility] Comment on above: Performed By: #### C BC #### [facility] [address] [place] [address] Dr. Juliet García IG # 0.02 10e3/ul Normal 0.00-0.03 [facility] Comment on above: Performed By: #### C BC #### [facility] [address] [place] [address] Dr. Juliet García IG % 0.3 % Normal 0.0-0.5 [facility] Comment on above: Performed By: #### C BC #### [facility] [address] [place] [address] Dr. Juliet García LYMPH # 1.9 103/ul Normal 1.2-3.8 [facility] Comment on above: Performed By: #### C BC #### [facility] [address] [place] [address] Dr. Juliet García Lymphocytes/100 WBC (Bld) 27.7 % Normal 20.5-60.0 [facility] Comment on above: Performed By: #### C BC #### [facility] [address] [place] [address] Dr. Juliet García MANUAL DIFF REQ NO Normal [facility] Comment on above: Performed By: #### C BC #### [facility] [address] [place] [address] Dr. Juliet García MCH (RBC) [Entitic mass] 33.3 pg Normal 25.9-34.0 [facility] Comment on above: Performed By: #### C BC #### [facility] [address] [place] [address] Dr. Juliet García MCHC (RBC) [Mass/Vol] 33.8 g/dL Normal 29.9-35.2 [facility] Comment on above: Performed By: #### C BC #### [facility] [address] [place] [address] Dr. Juliet García MCV (RBC) [Entitic vol] 98.3 fL Critically high 80.0-94.0 [facility] Comment on above: Performed By: #### C BC #### [facility] [address] [place] [address] Dr. Juliet García MONO # 0.7 103/ul Normal 0.3-0.8 [facility] Comment on above: Performed By: #### C BC #### [facility] [address] [place] [address] Dr. Juliet García Monocytes/100 WBC (Bld) 9.9 % Normal 1.7-12.0 [facility] Comment on above: Performed By: #### C BC #### [facility] [address] [place] [address] Dr. Juliet García NEUT # 3.8 103/ul Normal 1.4-6.5 [facility] Comment on above: Performed By: #### C BC #### [facility] [address] [place] [address] Dr. Juliet García Neutrophils/100 WBC (Bld) 56.0 % Normal 43.0-75.0 [facility] Comment on above: Performed By: #### C BC #### [facility] [address] [place] [address] Dr. Juliet García Platelet mean volume (Bld) [Entitic vol] 9.0 fL Critically low 9.5-13.5 [facility] Comment on above: Performed By: #### C BC #### [facility] [address] [place] [address] Dr. Juliet García PLT 201 103/ul Normal 150-450 [facility] Comment on above: Performed By: #### C BC #### [facility] [address] [place], [place] [id number] Dr. Juliet García RBC 4.12 106/ul Critically low 4.70-6.10 [facility] Comment on above: Performed By: #### C BC #### [facility] [address] [address] [address] Juliet García WBC 6.7 103/ul Normal 4.0-11.0 [facility] Comment on above: Performed By: #### C BC #### [facility] [address] [place] [address] Dr. Juliet García GLYCOHEMOGLOBIN A1Con 2021 ADA RECOMMENDATION SEE BELOW Normal [facility] Comment on above: Result Comment: ADA RECOMMENDED LIMIT 4.0 - 6.0 ADA THERAPEUTIC TARGET < 7.0 ACTION SUGGESTED > 7.0 Performed By: #### A 1C #### [facility] [address] [place] [address] Dr. Juliet García Glucose [Mass/Vol] 108 mg/dL Normal [facility] Comment on above: Performed By: #### A 1C #### [facility] [address] [place] [address] Dr. Juliet García HbA1c (Bld) [Mass fraction] 5.4 % Normal 4.5-6.2 [facility] Comment on above: Performed By: #### A 1C #### [facility] [address] [place] [address] Dr. Juliet García LIPID PROFILEon 05-03-2022 CHOL-HDL RATIO NORM SEE BELOW Normal [facility] Comment on above: Result Comment: 3.3 - 4.4 LOW RISK 4.4 - 7.1 AVERAGE RISK 7.1 - 11.0 MODERATE RISK >11.0 HIGH RISK Performed By: #### L IPID, CMP #### [facility] [address] [place] [address] Dr. Juliet García Cholesterol [Mass/Vol] 154 mg/dL Normal <=200 [facility] Comment on above: Performed By: #### L IPID, CMP #### [facility] [address] [place] [address] Dr. Juliet García Cholesterol in HDL [Mass/Vol] 29 mg/dL Critically low 40-60 [facility] Comment on above: Performed By: #### L IPID, CMP #### [facility] [address] [address] [address] Juliet García Cholesterol in LDL [Mass/Vol] 64.2 mg/dL Normal [facility] Comment on above: Performed By: #### L IPID, CMP #### [facility] [address] [address] [address] Juliet García Cholesterol.total/Ch olesterol in HDL [Mass ratio] 5.3 {ratio} Normal [facility] Comment on above: Performed By: #### L IPID, CMP #### [facility] [address] [address] [address] Juliet García HDL NORMAL > or = 60 mg/dl - LO W CARDIOVASCULAR RISK <40 mg/dl - HIGH CARDIOVASCULAR RISK Normal [facility] Comment on above: Performed By: #### L IPID, CMP #### [facility] [address] [place] [address] Dr. Juliet García LDL CALC NORMAL SEE BELOW Normal [facility] Comment on above: Result Comment: <100 mg/dl OPTIMAL 100 - 129 mg/dl NEAR OR ABOVE OPTIMAL 130 - 159 mg/dl BORDERLINE HIGH 160 - 189 mg/dl HIGH >190 mg/dl VERY HIGH Performed By: #### L IPID, CMP #### [facility] [address] [place] [address] Dr. Juliet García Triglyceride [Mass/Vol] 304 mg/dL Critically high <=150 [facility] Comment on above: Performed By: #### L IPID, CMP #### [facility] [address] [place] [address] Dr. Juliet García VLDL CALC 60.8 mg/dL Normal [facility] Comment on above: Performed By: #### L IPID, CMP #### [facility] [address] [place] [address] Dr. Juliet García PROF 14(COMP METB)on 022 Albumin [Mass/Vol] 3.7 g/dL Normal 3.4-5.0 [facility] Comment on above: Performed By: #### L IPID, CMP #### [facility] [address] [address] [address] Juliet García Albumin/Globulin [Mass ratio] 1.1 {ratio} Normal [facility] Comment on above: Performed By: #### L IPID, CMP #### [facility] [address] [address] [address] Juliet García ALP [Catalytic activity/Vol] 87 U/L Normal 46-116 [facility] Comment on above: Performed By: #### L IPID, CMP #### [facility] [address] [address] [address] Juliet García ALT [Catalytic activity/Vol] 52 U/L Normal 16-63 [facility] Comment on above: Performed By: #### L IPID, CMP #### [facility] [address] [address] [address] Juliet García Anion gap [Moles/Vol] 11.5 mmol/L Normal [facility] Comment on above: Performed By: #### L IPID, CMP #### [facility] [address] [address] [address] Juliet García AST [Catalytic activity/Vol] 27 U/L Normal 15-37 [facility] Comment on above: Performed By: #### L IPID, CMP #### [facility] [address] [address] [address] Juliet García Bilirubin [Mass/Vol] 0.4 mg/dL Normal 0.2-1.0 [facility] Comment on above: Performed By: #### L IPID, CMP #### [facility] [address] [address] [address] Juliet García Calcium [Mass/Vol] 8.7 mg/dL Normal 8.5-10.[address] [facility] Comment on above: Performed By: #### L IPID, CMP #### [facility] [address] [address] [address] Juliet García Chloride [Moles/Vol] 106 mmol/L Normal 98-107 [facility] Comment on above: Performed By: #### L IPID, CMP #### [facility] [address] [address] [address] Juliet García CO2 [Moles/Vol] 28.2 mmol/L Normal 21.0-32.0 [facility] Comment on above: Performed By: #### L IPID, CMP #### [facility] [address] [address] [address] Juliet García Creatinine [Mass/Vol] 1.21 mg/dL Normal 0.70-1.30 [facility] Comment on above: Performed By: #### L IPID, CMP #### [facility] [address] [address] [address] Juliet García EGFR-AF CANADIAN >60 Normal >=60 [facility] Comment on above: Performed By: #### L IPID, CMP #### [facility] [address] [address] [address] Juliet García EGFR-NON AF CANADIAN =60 Normal >=60 [facility] Comment on above: Performed By: #### L IPID, CMP #### [facility] [address] [address] [address] Juliet García Globulin (S) [Mass/Vol] 3.4 g/dL Normal [facility] Comment on above: Performed By: #### L IPID, CMP #### [facility] [address] [address] [address] Juliet García Glucose [Mass/Vol] 100 mg/dL Normal 74-[address] [facility] Comment on above: Performed By: #### L IPID, CMP #### [facility] [address] [address] [address] Juliet García Potassium [Moles/Vol] 4.7 mmol/L Normal 3.5-5.1 [facility] Comment on above: Performed By: #### L IPID, CMP #### [facility] [address] [address] [address] Juliet García Protein [Mass/Vol] 7.1 g/dL Normal 6.4-8.[address] [facility] Comment on above: Performed By: #### L IPID, CMP #### [facility] [address] [place], [place] [address] Dr. Juliet García Sodium [Moles/Vol] 141 mmol/L Normal 136-145 [facility] Comment on above: Performed By: #### L IPID, CMP #### [facility] [address] [address] [address] Juliet García Urea nitrogen [Mass/Vol] 23.0 mg/dL Critically high 7.0-18.0 [facility] Comment on above: Performed By: #### L IPID, CMP #### [facility] [address] [address] [address] Juliet García Urea nitrogen/Creatinine [Mass ratio] 19.0 mg/mg Normal [facility] Comment on above: Performed By: #### L IPID, CMP #### [facility] [address] [address] [address] Juliet García VC CONSULT FOLLOWUPon 2021 VC CONSULT FOLLOWUP Patient: CARLOS LOCKE Exam Date: 04/08/2022 : 1955 Gender:M Ordering : DR RACHEAL GRAVES M.D. Admission #: [id number] Family : Order #: [id number] CLICK HERE [...] Graves MD on 04/08/2022 at 11:30 Normal [facility] VC EXT VENOUS RT LIMITEDon 0 04-08-2022 VC EXT VENOUS RT LIMITED Patient: CARLOS LOCKE Exam Date: 04/08/2022 : 1955 Gender:M Ordering : DR RACHEAL GRAVES M.D. Admission #: [id number] Family : Order #: [id number] CLICK HERE TO VIEW EXAM RADIOLOGY REPORT [...] Graves MD on 04/08/2022 at 11:31 Normal [facility] VC INJ FOAM SCLERO W US MLTI on 04-03-2022 VC INJ FOAM SCLERO W US MLTI Patient: CARLOS LOCKE Exam Date: 04/03/2022 : 1955 Gender:M Ordering : DR RACHEAL GRAVES M.D. Admission #: [id number] Family : DR ANDERSEN EtelvinaRusty BOONE . Order #: [id number] CLICK HERE TO VIEW EXAM RADIOLOGY REPORT [...] av (more content not included)... Normal [facility] VC CONSULT FOLLOWUPon 2021 VC CONSULT FOLLOWUP Patient: CARLOS LOCKE Exam Date: 03/25/2022 : 1955 Gender:M Ordering : DR RACHEAL GRAVES M.D. Admission #: [id number] Family : Order #: [id number] CLICK HERE TO VIEW EXAM RADIOLOGY REPORT [...] Kenny M.D. on 03/25/2022 at 08:41 Normal [facility] VC EXT VENOUS RT LIMITEDon 0 03-25-2022 VC EXT VENOUS RT LIMITED Patient: CARLOS LOCKE Exam Date: 03/25/2022 : 1955 Gender:M Ordering : DR RACHEAL GRAVES M.D. Admission #: [id number] Family : Order #: [id number] CLICK HERE TO VIEW EXAM RADIOLOGY REPORT [...] Kenny M.D. on 03/25/2022 at 08:39 Normal [facility] VC ENDOVENOUS ABL 1ST V RTon 03-19-2022 VC ENDOVENOUS ABL 1ST V RT Patient: CARLOS LOCKE Exam Date: 03/19/2022 : 1955 Gender:M Ordering : DR RACHEAL GRAVES M.D. Admission #: [id number] Family : Order #: [id number] CLICK HERE TO VIEW EXAM RADIOLOGY REPORT [...] Racheal Graves MD on 03/19/2022 at 08:58 [facility] VC CONSULT FOLLOWUPon 2021 VC CONSULT FOLLOWUP Patient: CARLOS LOCKE Exam Date: 02/18/2022 : 1955 Gender:M Ordering : DR RACHEAL GRAVES M.D. Admission #: [id number] Family : Order #: [id number] CLICK HERE TO VIEW EXAM RADIOLOGY REPORT [...] Graves MD on 02/18/2022 at 09:45 Normal [facility] VC EXT VENOUS LT LIMITEDon 0 02-18-2022 VC EXT VENOUS LT LIMITED Patient: CARLOS LOCKE Exam Date: 02/18/2022 : 1955 Gender:M Ordering : DR RACHEAL GRAVES M.D. Admission #: [id number] Family : Order #: [id number] CLICK HERE TO VIEW EXAM RADIOLOGY REPORT [...] varicose veins remain off of SSV and electro mechanical designer mid posterior calf. *Exam performed in accordance with [facility] practice guidelines- Peripheral venous ultrasound, October 07, 2009. CONCLUSION: Post ablation occlusion of left leg varicose veins Dictated by: Racheal Graves MD on 02/18/2022 at 09:32 Approved by: Racheal Graves MD on 02/18/2022 at 09:36 [facility] VC INJ FOAM SCLERO W US MLTI on 02-13-2022 VC INJ FOAM SCLERO W US MLTI Patient: CARLOS LOCKE Exam Date: 02/13/2022 : 1955 Gender:M Ordering : DR RACHEAL GRAVES M.D. Admission #: [id number] Family : Order #: [id number] CLICK HERE TO VIEW EXAM RADIOLOGY REPORT [...] Kenny M.D. on 02/13/2022 at 10:15 Normal [facility] VC CONSULT FOLLOWUPon 2021 VC CONSULT FOLLOWUP Patient: CARLOS LOCKE Exam Date: 02/06/2022 : 1955 Gender:M Ordering : DR RACHEAL GRAVES M.D. Admission #: [id number] Family : Order #: [id number] CLICK HERE TO VIEW EXAM RADIOLOGY REPORT [...] Kenny M.D. on 02/06/2022 at 09:53 Normal [facility] VC EXT VENOUS LT LIMITEDon 0 02-06-2022 VC EXT VENOUS LT LIMITED Patient: CARLOS LOCKE Exam Date: 02/06/2022 : 1955 Gender:M Ordering : DR RACHEAL GRAVES M.D. Admission #: [id number] Family : Order #: [id number] CLICK HERE TO VIEW EXAM RADIOLOGY REPORT [...] Kenny M.D. on 02/06/2022 at 09:49 Normal [facility] GLYCOHEMOGLOBIN A1Con 2021 ADA RECOMMENDATION SEE BELOW Normal [facility] Comment on above: Result Comment: ADA RECOMMENDED LIMIT 4.0 - 6.0 ADA THERAPEUTIC TARGET < 7.0 ACTION SUGGESTED > 7.0 Performed By: #### A 1C #### [facility] [address] [address] [address] Julite García Glucose [Mass/Vol] 108 mg/dL Normal [facility] Comment on above: Performed By: #### A 1C #### [facility] [address] [address] [address] Juliet García HbA1c (Bld) [Mass fraction] 5.4 % Normal 4.5-6.2 [facility] Comment on above: Performed By: #### A 1C #### [facility] [address] [address] [address] Juliet García PROF 14(COMP METB)on 022 Albumin [Mass/Vol] 4.0 g/dL Normal 3.4-5.[address] [facility] Comment on above: Performed By: #### C MP ####[facility] [address] [address]DrRusty García Albumin/Globulin [Mass ratio] 1.2 {ratio} Normal [facility] Comment on above: Performed By: #### C MP ####[facility] [address] [address]DrRusty García ALP [Catalytic activity/Vol] 89 U/L Normal 46-116 [facility] Comment on above: Performed By: #### C MP ####[facility] [address] [address]DrRusty García ALT [Catalytic activity/Vol] 81 U/L Critically high 16-63 [facility] Comment on above: Performed By: #### C MP ####[facility] [address] [address]DrRusty García Anion gap [Moles/Vol] 13.6 mmol/L Normal [facility] Comment on above: Performed By: #### C MP ####[facility] [address] [address]DrRusty García AST [Catalytic activity/Vol] 32 U/L Normal 15-37 [facility] Comment on above: Performed By: #### C MP ####[facility] [address] [id number] García Bilirubin [Mass/Vol] 0.5 mg/dL Normal 0.2-1.0 [facility] Comment on above: Performed By: #### C MP ####[facility] [address] [address]11DrRusty García Calcium [Mass/Vol] 8.9 mg/dL Normal 8.5-10.[address] [facility] Comment on above: Performed By: #### C MP ####[facility] [address] [address]Dr. Juliet García Chloride [Moles/Vol] 106 mmol/L Normal 98-107 [facility] Comment on above: Performed By: #### C MP ####[facility] [address] [address]Dr. Juliet García CO2 [Moles/Vol] 27.1 mmol/L Normal 21.0-32.0 [facility] Comment on above: Performed By: #### C MP ####[facility] [address] [address]. Juliet Ricky Creatinine [Mass/Vol] 1.46 mg/dL Critically high 0.70-1.30 [facility] Comment on above: Performed By: #### C MP ####[facility] [address] [place], [place] [address]Dr. Juliet Ricky EGFR-AF CANADIAN 59 mL/min/1.73m2 Critically low >=60 [facility] Comment on above: Performed By: #### C MP ####[facility] [address] [place], [place] [address]Dr. uJliet Ricky EGFR-NON AF CANADIAN 48 mL/min/1.73m2 Critically low >=60 [facility] Comment on above: Performed By: #### C MP ####[facility] [address] [address]. Juliet Ricky Globulin (S) [Mass/Vol] 3.4 g/dL Normal [facility] Comment on above: Performed By: #### C MP ####[facility] [address] [address]. Juliet Ricky Glucose [Mass/Vol] 93 mg/dL Normal 74-[address] [facility] Comment on above: Performed By: #### C MP ####[facility] [address] [address]Dr. Juliet García Potassium [Moles/Vol] 4.7 mmol/L Normal 3.5-5.1 [facility] Comment on above: Performed By: #### C MP ####[facility] [address] [address]Dr. Juliet García Protein [Mass/Vol] 7.4 g/dL Normal 6.4-8.2 [facility] Comment on above: Performed By: #### C MP ####[facility] [address] [address]Dr. Juliet García Sodium [Moles/Vol] 142 mmol/L Normal 136-145 [facility] Comment on above: Performed By: #### C MP ####[facility] [address] [address]Dr. Juliet García Urea nitrogen [Mass/Vol] 25.0 mg/dL Critically high 7.0-18.0 [facility] Comment on above: Performed By: #### C MP ####[facility] [address] [address]Dr. Juliet García Urea nitrogen/Creatinine [Mass ratio] 17.1 mg/mg Normal [facility] Comment on above: Performed By: #### C MP ####[facility] [address] [address]. Juliet García VC ENDOVENOUS ABL 1ST V LTon 01-30-2022 VC ENDOVENOUS ABL 1ST V LT Patient: CARLOS LOCKE Exam Date: 01/30/2022 : 1955 Gender:M Ordering : DR RACHEAL GRAVES M.D. Admission #: [id number] Family : Order #: [id number] CLICK HERE TO VIEW EXAM RADIOLOGY REPORT [...] Kenny M.D. on 01/30/2022 at 12:00 Normal [facility] POINT OF CARE GLUCOSEon 07 Glucose [Mass/Vol] 84 mg/dL Normal 74-106 [facility] Comment on above: Performed By: #### P OCGLUC #### [facility] [address] [address] [address] Juliet García VC COMP CONSULTATIONon 01-21 VC COMP CONSULTATION Patient: CARLOS LOCKE Exam Date: 01/21/2022 : 1955 Gender:M Ordering : DR RACHEAL GRAVES M.D. Admission #: [id number] Family : Order #: [id number] CLICK HERE TO VIEW EXAM RADIOLOGY REPORT [...] for years. The patient is retired from [employer] after working 42 years. The patient denies [...] additional information, and this was performed [facility]. See separate history and physical for medication [...] incompetent branch saphenous tributary/varicose veins. 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 PHYSICAL EXAM: The right leg demonstrates [...] pulses were present bilaterally. IMPRESSION: 1. Bilateral gscc-lq-xzkpzoay great saphenous vein and mild right small [...] MD on 01/21/2022 at 11:46 Normal [facility] VC VENOUS REFLUX MARIE LMTon 0 01-21-2022 VC VENOUS REFLUX MARIE LMT Patient: CARLOS LOCKE Exam Date: 01/21/2022 : 1955 Gender:M Ordering : DR RACHEAL GRAVES M.D. Admission #: [id number] Family : DR ANDERSEN EtelvinaRusty BOONE . Order #: [id number] CLICK HERE TO VIEW EXAM RADIOLOGY REPORT [...] Compressibility: Normal. Flow: Mild deep venous reflux. Photographic Editor: Post/prox calf 5.9mm, 0.7s reflux. Prox/med calf [...] MD on 01/21/2022 at 10:40 Normal [facility] POINT OF CARE GLUCOSEon 12-13 Glucose [Mass/Vol] 87 mg/dL Normal 74-106 [facility] Comment on above: Performed By: #### P OCGLUC ####[facility] [address] [place], [place] [address]Vr. Juliet García SURGICAL PATHOLOGYon 021 SURGICAL PATHOLOGY Specimen #: [id number] Submitting Physician: JULIET GARCÍA M.D. FINAL DIAGNOSIS [place], [place]; [id number] (12/07/2020) Liver, mass , biopsy (A1, A2, [...] do not hesitate to contact us at [phone] with questions or if additional follow up information becomes available. This case was reviewed in conjunction with the GI pathology fellow, Apoorva Diallo MD. The following stains were performed at the [facility] in order to further characterize this [...] in-situ hybridization tests have been determined by [facility]'s [facility] [place] ([facility]) in a manner consistent with CLIA requirements. One or more of these tests have not been cleared or approved by the FDA. [facility] is regulated under CLIA as qualified to perform high-complexity testing. These tests are used for clinical purposes. They should not be regarded as investigational or for research. Nicolasa Cheema M.D. (Electronic Signature) _ SPECIMEN SUBMITTED A: 12 slides [id number] CLINICAL DATA Mass Date of Report: 03/27/2021 Date of Procedure: 03/16/2021 Date of Receipt: 03/15/2021 Submitted by: JULIET GARCÍA M.D. Location: Diagnostic interpretation performed at [facility], [address] [place] [address]. CLIA Number: [id number] Normal [facility] Comment on above: Performed By: #### S #### See report for performing lab information. Vital Signs Date Time Vital Sign Value Performing Clinician Facility 06-03-2023 09:59-0500 Blood Pressure Location LIZ HERNANDEZ [facility] 06-03-2023 09:59-0500 Diastolic blood pressure 74 mm[Hg] LIZ HERNANDEZ [facility] 06-03-2023 09:59-0500 Heart rate 70 /min LIZ HERNANDEZ [facility] 06-03-2023 09:59-0500 Respiratory rate 16 /min LIZ HERNANDEZ [facility] 06-03-2023 09:59-0500 Systolic blood pressure 138 mm[Hg] LIZ HERNANDEZ [facility] 05-23-2022 09:45-0500 Body height 187.96 cm Alejandra Olexa Other [employer] Other 05-23-2022 09:45-0500 Body mass index (BMI) [Ratio] 40.57 kg/m2 Alejandra Olexa Other [employer] Other 05-23-2022 09:45-0500 Body weight 143.34 kg Alejandra Olexa Other [employer] Other 08-07-2021 14:15-0500 Body height 187.96 cm Alejandra Olexa Other [employer] Other 08-07-2021 14:15-0500 Body mass index (BMI) [Ratio] 40.64 kg/m2 Alejandra Olexa Other [employer] Other 08-07-2021 14:15-0500 Body weight 143.61 kg Alejandra Olexa Other [employer] Other 04-12-2021 10:30-0400 Body height 187.96 cm Racheal Daniels Other [employer] Other 04-12-2021 10:30-0400 Body mass index (BMI) [Ratio] 41.75 kg/m2 Racheal Daniels Other [employer] Other 04-12-2021 10:30-0400 Body weight 147.51 kg Racheal Daniels Other [employer] Other 04-12-2021 10:30-0400 Diastolic blood pressure 71 mm[Hg] Racheal Daniels Other [employer] Other 04-12-2021 10:30-0400 Systolic blood pressure 131 mm[Hg] Racheal Daniels Other [employer] Other Encounters Encounter Date Encounter Type Care Provider Facility Start: 11-04-2023 ambulatory PA-C LIZ HERNANDEZ Facility:[facility] Start: 07-23-2023 End: 07-23-2023 ambulatory HARINDER RUGGIERO Not Available Start: 06-30-2023 End: 07-01-2023 ambulatory Donaldo Sparrow MD Facility:[facility] Start: 06-03-2023 End: 06-04-2023 ambulatory VLADISLAVC LIZ HERNANDEZ Facility:[facility] Start: 06-03-2023 End: 06-03-2023 Patient encounter procedure LIZ HERNANDEZ [facility] Start: 01-06-2023 End: 01-07-2023 ambulatory Donaldo Sparrow MD Facility:[facility] Start: 12-05-2022 End: 12-06-[address] FELISA [...] Encounter for preprocedural cardiovascular examination [facility] Start: 10-18-2022 Encounter for preprocedural laboratory examination [facility] Start: 10-16-[address] FELISA BERRIOS . [...] . Facility:[facility] Start: 09-06-2022 ambulatory FELISA BERRIOS Facility:[facility] Start: 08-26-2022 End: 08-27-[address] FELISA BERRIOS . Facility:[facility] Start: 08-06-2022 End: 08-07-2022 ambulatory TONIO BELL Facility:[facility] Start: 07-31-2022 End: 07-31-2022 ambulatory BENTLEY MACK [facility] Start: 07-31-2022 End: 08-01-[address] NATHALY [...] 05-23-2022 End: 05-23-2022 ambulatory Alejandra Cain Other [employer] Other Start: 05-23-2022 Office outpatient vi sit 15 minutes Alejandra Cain [facility] Start: 05-03-2022 End: 05-04-[address] [...] 08-07-2021 End: 08-07-2021 ambulatory Alejandra Cain Other [facility] Other Start: 08-07-2021 Office outpatient vi sit 15 minutes Alejandra Cain [facility] [place] Start: 04-12-2021 Office outpatient vi sit 15 minutes Racheal Daniels [facility] Procedures Date Procedure Procedure Detail Performing Clinician Start: 05-03-[address] RACHEAL GRAVES Comment on above: Performed By: #### P SAD #### [facility] [address] [place] [address] Dr. Juliet García Start: 12-07-2020 CT guided biopsy NOLAFELTON SIMONS DAVID Comment on above: LIVER. NO SEDATION. Arthroscopy of knee LIZ HERNANDEZ Bilateral cataracts (disorder) LIZ HERNANDEZ H/O: vasectomy LIZ De Jesus [employer] (substance) JOSE Hazel DAVID Comment on above: Toe Tonsillectomy LIZ HERNANDEZ Immunizations Immunization Date Immunization Notes Care Provider Fa eitanty 04-20-2023 SARS-CoV-2 mRNA (tozinameran 5y-11y) vaccine LIZ HERNANDEZ [facility] Comment on above: Result Comment: covi d 19 mRNA ([facility]vs) 04-17-2022 influenza virus vacc ine, unspecified formulation LIZ HERNANDEZ [facility] 03-23-2022 SARS-CoV-2 (COVID-19 ) [id number] LIZ HERNANDEZ [facility] 10-23-2021 SARS-CoV-2 mRNA (gbwiyshwccv-joxs-vbeigz e) vaccine LIZ DAVID [facility] 05-27-2021 pneumococcal polysaccharide vaccine, 23 valent LIZ DAVID [facility] 05-06-2021 SARS-CoV-2 (COVID-19 ) mRNA BNT-162b2 vax LIZ DAVID [facility] Comment on above: Result Comment: 2021: [id number] 04-07-2021 influenza virus vacc ine, unspecified formulation LIZ DAVID [facility] 09-18-2020 SARS-CoV-2 (COVID-19 ) mRNA BNT-724b2 vax LIZ DAVID [facility] 04-19-2020 influenza virus vacc ine, unspecified formulation LIZ DAVID [facility] 04-15-2020 influenza virus vacc ine, unspecified formulation LIZ DAVID [facility] 04-20-2018 influenza virus vacc ine, unspecified formulation LIZ DAVID [facility] 03-24-2018 influenza virus vacc ine, unspecified formulation LIZ DAVID [facility] 05-01-2013 influenza virus vacc ine, unspecified formulation LIZ DAVID [facility] Payers Date Payer Category Payer Medicare 2022 Unknown [id number] 2022 Unknown 2021 Medicare [id number] 2019 Unknown [id number] 2. [id number] 1959 Medicare [id number] 1955 Unknown [id number] 2.16.84 0.1.686365.3.579.2.593 1955 Unknown [id number] 2.16.84 0.1.385915.3.579.2.593 1955 Unknown [id number] 2.16.84 0.1.486940.3.579.2.593 1955 Unknown [id number] 2.16.84 0.1.179618.3.579.2.593 1955 Unknown [id number] 2.16.84 0.1.876170.3.579.2.593 1955 Unknown [id number] 2.16.84 0.1.132782.3.579.2.593 1955 Unknown [id number] 2.16.84 0.1.607351.3.579.2.593 1955 Unknown [id number] 2.16.84 0.1.141694.3.579.2.593 1955 Unknown [id number] 2.16.84 0.1.085756.3.579.2.593 1955 Unknown [id number] 2.16.84 0.1.118750.3.579.2.593 1955 Unknown [id number] 2.16.84 0.1.087075.3.579.2.593 1955 Unknown [id number] 2.16.84 0.1.655485.3.579.2.593 1955 Unknown [id number] 2.16.84 0.1.019983.3.579.2.593 1955 Unknown [id number] 2.16.84 0.1.705507.3.579.2.593 1955 Unknown [id number] 2.16.84 0.1.594889.3.579.2.593 1955 Unknown [id number] 2.16.84 0.1.853792.3.579.2.593 1956 Unknown [id number] 2.16.84 0.1.619538.3.579.2.593 1956 Unknown [id number] 2.16.84 0.1.307570.3.579.2.593 1955 Unknown [id number] 2.16.84 0.1.408533.3.579.2.593 1956 Unknown [id number] 2.16.84 0.1.667286.3.579.2.593 1956 Unknown [id number] 2.16.84 0.1.654170.3.579.2.593 1956 Unknown [id number] 2.16.84 0.1.767246.3.579.2.593 1956 Unknown [id number] 2.16.84 0.1.864472.3.579.2.593 1956 Unknown [id number] 2.16.84 0.1.695320.3.579.2.593 1956 Unknown [id number] 2.16.84 0.1.378779.3.579.2.593 1956 Unknown [id number] 2.16.84 0.1.896565.3.579.2.593 1956 Unknown [id number] 2.16.84 0.1.646404.3.579.2.593 1956 Unknown [id number] 2.16.84 0.1.499600.3.579.2.593 1956 Unknown [id number] 2.16.84 0.1.002679.3.579.2.593 1956 Unknown [id number] 2.16.84 0.1.625795.3.579.2.593 1956 Unknown [id number] 2.16.84 0.1.137537.3.579.2.593 1956 Unknown [id number] 2.16.84 0.1.093165.3.579.2.593 1956 Unknown [id number] 2.16.84 0.1.616952.3.579.2.593 1956 Unknown [id number] 2.16.84 0.1.447526.3.579.2.593 1956 Unknown [id number] 2.16.84 0.1.463490.3.579.2.593 1956 Unknown [id number] 2.16.84 0.1.527646.3.579.2.593 1956 Unknown [id number] 2.16.84 0.1.174880.3.579.2.593 1956 Unknown [id number] 2.16.84 0.1.987037.3.579.2.593 1956 Unknown [id number] 2.16.84 0.1.630785.3.579.2.593 1956 Unknown [id number] 2.16.84 0.1.192212.3.579.2.593 1956 Unknown [id number] 2.16.8 40.1.889298.3.579.2.727 1956 Unknown [id number] 2.16.8 40.1.266290.3.579.2.727 1956 Unknown [id number] 2.16.8 40.1.155201.3.579.2.727 1956 Unknown [id number] 2.16.8 40.1.438221.3.579.2.727 1956 Unknown [id number] 2.16. 840.1.976537.3.579.2.196 1956 Unknown [id number] 2.16. 840.1.747652.3.579.2.196 1956 Unknown [id number] 2.16. 840.1.755809.3.579.2.196 1956 Unknown [id number] 2.16.84 0.1.140524.3.579.2.1259 Social History Date Type Detail Facility Sex Assigned At [facility] Start: 06-03-2023 Tobacco smoking status Never s moked tobacco (finding) [facility] Tobacco smoking status Never [facility] Functional Status Date Assessment Result Facility 06-03-2023 Functional Status N/A [facility] Clinical Notes 04-12-2021 to 06-03-2023 Note Date [...] treatment? Where to find more information [employer]: www.cancer.org [employer]: www.auanet.org Contact a health care [...] provider. Document Revised: 12/24/2021 Document Reviewed: 12/24/2021 [employer] Patient Education 2022 [employer]. Follow Up Care 05/29/2022 11:47:27 With:DAVID IVAN, LIZ Juarez, URL Address: [address] [place] [address] [phone] When: Unknown Comments:6 mos w/ PSA [facility] 12-03-2022 Note PROCEDURE: XR FOOT L T [...] by: ELIN KENNY Date: 2022-12-03 09:57 [facility] 11-12-2022 Note PROCEDURE: XR FOOT L [...] by: ZAFAR FERRER Date: 2022-11-12 13:59 [facility] 10-22-2022 Note PROCEDURE: XR FOOT L [...] authenticated by: ELIN KENNY Date: 2022-10-22 07:48 [facility] 10-22-2022 Note PROCEDURE: XR FOOT L T 2V HISTORY: Pain COMPARISON: XR foot left 10/21/2022 FINDINGS: BONES:Multiple intraoperative spot fluoroscopic images demonstrate mechanical fusion of the first metatarsophalangeal joint and resection of head of first proximal phalanx. IMPRESSION: 1. Surgical changes of left first toe as detailed above. Electronically authenticated by: ELIN KENNY Date: 2022-10-22 07:46 [facility] 07-31-2022 Note Currently stable [facility] 07-31-2022 Note Hypertension is well controlled 114/64 Continue lisinopril 5 mg Recent CR elevated 1.59- his cr typically has been 1.2-1.4 - He has been on antibiotics for Lt foot infection- DFU with wound care. [facility] 07-31-2022 Note Lipid abnormalities are currently well controlled with lipitor 20 mg- LDL currently 58.6 on labs 07/26/2022 Liver function 04/2022 were normal [facility] 07-31-2022 Note UTP CARDIOLOGY PROGR ESS NOTE [...] RTC 1 year or earlier if needed [facility] 07-31-2022 Note Patient here for 6 m o follow up history of PE and hyperlipidemia. Had labs in Apr and echo in Jun 2022. Patient denies chest pain, SOB, and increase in LE edema. Doing very well from cardiac standpoint. Was seeing Dr. Graves for his varicose veins. Review of Systems Cardiovascular: Positive for leg swelling. All other systems reviewed and are negative. [facility] 07-31-2022 Note CONSULTATION PROCEDURE DATE: 07/31/2022 INDICATIONS: [...] the clinic in three months' time. [facility] 07-25-2022 Note CONSULTATION CONSULTATION DATE: 07/25/2022 HISTORY OF PRESENT ILLNESS: This is a 66-year-old gentleman who presents to the Pain Clinic today with increased lower back pain. The patient does have chronic bilateral knee pain, but he states those are doing quite well. He did receive a left knee steroid injection in April. The patient just recently returned from a [place] vacation, where he visited multiple [employer] mayes and had a lot of increased [...] and will be contacted upon approval. [facility] 07-24-2022 Note PROCEDURE: XR FOOT L [...] by: ELIN KENNY Date: 2022-07-24 10:21 [facility] 06-10-2022 Note PROCEDURE: XR KNEE L T 4V or > HISTORY: Pain in left knee ; chronic left knee pain COMPARISON: XR knee bilateral 05/31/2021 FINDINGS: BONES:Marked narrowing of the medial joint space with suspected [id number] articulation. Moderate-marked narrowing of the lateral compartment. Mild narrowing of anterior compartment. Small periarticular osteophytes involving the margins of all 3 compartments. No fracture or dislocation. SOFT TISSUES:No visible soft tissue swelling. EFFUSION:Small joint effusion. OTHER: Negative. IMPRESSION: 1. Marked degenerative joint disease. Stable to minimally progressed. Electronically authenticated by: ELIN KENNY Date: 2022-06-10 19:35 [facility] 05-23-2022 Evaluation note Encounter Date Diagnosis [...] Pain in left knee (ICD-10 - M25.562) [employer] Other 10-11-2022 NoteCONSULTATION CONSULTATION DATE: 04/23/2022 CHIEF [...] the time being. CC: Felisa Berrios M.D.[facility] [id number] NoteCONSULTATION CONSULTATION DATE: 04/04/2022 HISTORY OF PRESENT [...] indicated. Patient agreed with plan of care.[facility] [id number] Note CONSULTATION CONSULTATION DATE: 02/14/2022 HISTORY OF [...] time unless otherwise indicated. Patient acknowledges understanding.[facility] [id number] NoteCONSULTATION PROCEDURE DATE: 02/14/2022 PREOPERATIVE DIAGNOSIS: Bilateral [...] will be followed up in the office.[facility] [id number] Evaluation note* Encounter Date Diagnosis Assessment Notes [...] Pain in left knee (ICD-10 - M25.562) [employer] Other 09-30-2021 Evaluation note* Encounter Date Diagnosis Assessment Notes Treatment Notes Treatment Clinical Notes Mar, Liver hemangioma (ICD-10 - D18.03) Mar, HODGES (nonalcoholic steatohepatitis) (ICD-10 - K75.81) [employer] Other Evaluation + Plan note Future Appointments Appointment Date:11/04/2023 08:30:00 AM Scheduled Provider:LIZ HERNANDEZ PA-C Location:[facility] Appointment Type:URO Office Visit Diagnostic Tests Pending * PSA Total 06/03/23 [facility] History general Narrative - Reported* Type Description Date Medical History DM II Medical History HTN Medical History hyperlipidemia Medical History gout Surgical History knee surgery Surgical History tonsillectomy Surgical History vasectomy Surgical History sinus surgery Surgical History back injections Hospitalization History SEE ABOVE SURGICAL HX [facility] [employer] Other Hospital course Narrative No data available for this section [facility] progress note No data available for this section [facility] Summary Purpose Family History No Family History [...] section and content) DATE CREATED AUTHOR 03/29/2021 [facility] DATE CREATED AUTHOR AUTHOR'S ORGANIZ ATION 08/06/2022 [facility] DATE CREATED AUTHOR AUTHOR'S ORGANIZ ATION 12/20/2022 [facility] DATE CREATED AUTHOR AUTHOR'S ORGANIZ ATION 07/01/2023 [facility] DATE CREATED AUTHOR AUTHOR'S ORGANIZ ATION 07/05/2023 [facility] DATE CREATED AUTHOR AUTHOR'S ORGANIZ ATION 07/24/2023 [facility] Specialists EPIC REASON FOR VISIT (unrecogniz ed section and content) PT HERE FOR 4 WEEK FOLLOW UP LIVER LESION LABS WERE ORDERED AT LAST OFFICE VISITBilateral Knee PainRecheck Bilateral Knees Patient Care team informatio n (unrecognized section and content) Personnel Name: RUBEN MCGUIRE, FELISA Juarez Address: Address: [address] [place] [id number] FOR RECORDS PERTAINING TO PATIENTS WHO ARE [...] BE BASED ON THE PRIMARY CLINICAL RECORDS. [facility] [employer] [facility]. provides no warranty or guarantee of the accuracy or completeness of information in this document.
--- NOTE | 2023-07-31 09:02 | P.CN_ITS ---
Consult Note: HPI Data of Consult Patient: known to practice within the last 3 years Requesting Physician: Gracie Chaudhry NP Primary Care Provider: Tulio Madrid MD Consult Narrative Reason for consult: f/u Narrative: Warner Caraballo a pleasant 67 year old male presents for evaluation of chronic low back pain. Today rating pain 2/10 in low back. Patient recently underwent bilateral L3,4,5 (L4-5 L5-S1) RFA with >50% ongoing relief of pain in bilateral low back. At worst pain is 4/10 at this time, improved from prior 8/10. Patient continues to find benefit from current medication regimen, with chronic widespread pain he continues to benefit from gabapentin, diclofenac, tramadol. 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, unspecified foot (ICD-10) Surgical History History of tonsillectomy and adenoidectomy ?Z90.89 - Acquired absence of other organs (ICD-10) S/P right knee arthroscopy ?Z98.890 - Other specified postprocedural states (ICD-10) S/P left knee arthroscopy ?Z98.890 - Other specified postprocedural states (ICD-10) Family History Other Family history of stroke Social History Within the past year, how often did you have a drink containing alcohol: monthly or less Smoking status: Never smoker Non-prescribed substance use: denies use Previous occupational history: RETIRED Highest level of school completed/degree received: high school graduate Meds Home Medications and Allergies Home Medications Medication Instructions Recorded Confirmed Type acetaminophen 500 mg tablet 1,000 mg PO Q6H PRN pain 01/06/23 06/30/23 History (Acetaminophen Extra Strength) ascorbic acid (vitamin C) 500 mg 500 mg PO BID 01/06/23 06/30/23 History tablet (C-500) atorvastatin 20 mg tablet 20 mg PO DAILY 01/06/23 06/30/23 History cholecalciferol (vitamin D3) 25 1,000 unit PO BID 01/06/23 06/30/23 History mcg (1,000 unit) tablet (Vitamin D3) colchicine 0.6 mg tablet 0.6 mg PO TID 01/06/23 06/30/23 History diclofenac sodium 50 mg 50 mg PO Q12H 01/06/23 06/30/23 History tablet,delayed release febuxostat 40 mg tablet 40 mg PO DAILY 01/06/23 06/30/23 History gabapentin 300 mg capsule 300 mg PO TID 01/06/23 06/30/23 History lisinopril 5 mg tablet 5 mg PO DAILY 01/06/23 06/30/23 History metformin 500 mg tablet,extended 500 mg PO DAILY 01/06/23 06/30/23 History release 24 hr probenecid 500 mg tablet 500 mg PO BID 01/06/23 06/30/23 History semaglutide 1 mg/dose (4 mg/3 mL) 0.5 mg subcut .weekly 01/06/23 06/30/23 History subcutaneous pen injector (Ozempic) tizanidine 4 mg tablet 8 mg PO .hs 01/06/23 06/30/23 History tramadol 50 mg tablet 50 mg PO Q8H 01/06/23 06/30/23 History Allergies Allergy/AdvReac Type Severity Reaction Status Date / Time oxycodone AdvReac Verified 06/30/23 09:31 Exam Constitutional Documenting provider has reviewed patient's vital signs: yes Common normals: no apparent distress, oriented x3, healthy appearing, alert and well nourished General appearance: cooperative [facility] Common normals: normocephalic, hearing grossly normal bilaterally and moist oral mucous membranes Head and scalp: normocephalic Eye Common normals: PERRL Pupil: PERRL Neck & C-Spine Common normals: full ROM General: normal visual inspection Chest Common normals: inspection of chest normal Respiratory Common normals: normal respiratory effort, no retractions and no use of accessory muscles Back & Pelvis Lumbar spine/lower back: pain with ROM, paraspinal muscle tenderness and straight leg raise negative bilaterally Other: bilateral positive facet loading negative pain at L2-3 L3-4 no radiculopathy Extremity Common normals: normal to inspection and full ROM Neuro Common normals: oriented x3, CN's II-XII intact bilaterally, moves all extremities, no focal motor deficits, no sensory deficits noted, deep tendon reflexes 2+ bilaterally and gait normal Sensorium/orientation: alert Motor exam: strength 5/5 throughout and no movement abnormalities noted Psych Common normals: mental status grossly normal, thought process normal, cooperative, affect normal, speech normal and activity/motor behavior normal Speech: normal speech Thought process: normal thought process Results Additional Findings Additional findings: I have checked an OARRS report on this patient today and there are no aberrancies noted in the prescribing history.?? A drug screen was completed and reviewed within the last year, and if there has not been a drug screen completed we ordered one today to monitor higher risk, state monitored pain medication use. As part of providing excellent, safe, comprehensive care, the following was completed at our patient's visit: 1. A medication reconciliation and review to ensure accurate knowledge of current/active medications, including asking our patients to inform us about any [id number] medications or herbal remedies/nutritional supplements/alternative remedies. 2. A review to specifically ensure our patients have had annual screening for: elevated body mass index (BMI), tobacco use, screening for depression, and screening for unhealthy alcohol use. When screening is concerning, patients are provided with education and the specific recommendation to discuss the concerning health issue and treatment options with their primary care provider. Assessment and Plan Assessment and Plan (1) Lumbar spondylosis: (2) Myofascial pain: (3) Lumbar stenosis with neurogenic claudication: (4) Obesity: Assessment and Plan: The patient was counseled that proper dietary changes and consistent participation in a home exercise plan can lead to weight loss. Weight loss can help to improve functionality in patients with chronic pain.? (5) Chronic, continuous use of opioids: Assessment and Plan: I feel these medications are improving the patient's quality of life and allow them to tolerate activities of daily living as well as participate in recreational activity.? The patient does not report intolerable side effects. The patient is NOT opioid naive and non-pharmacologic and non-opioid treatment has failed to significantly relieve the patient's pain and improve functionality. The patient has a diagnosis that is related to a somatic or visceral pain etiology. ? ?? I reviewed with the patient the potential risks and side effects with the use of? opioid medications including but not limited to respiratory depression,? sedation, and even . I verified the patient has access to naloxone should? these effects occur. I advised the patient to avoid the use of any other? sedation substances including alcohol, THC, and benzodiazepines while? taking opioid medications due to the risk of compounding side effects and? detrimental outcomes. I reviewed the [employer], pain treatment agreement, urine? drug screen, and opioid start talking forms. The patient was advised to let? their family know they had Naloxone in case they would need to administer? the medication.? ?? A drug screen was completed within the last year, and no aberrancies were noted regarding their use of controlled substances. The patient understands they are subject to the terms and conditions of the pain contract that they have signed. ? ?? I have checked an OARRS report on this patient today and there are no aberrancies noted in the prescribing history.? (6) Knee pain: (7) Back pain: Plan discussed 50% improvement post RFA is minimal expected response, will assess further improvement in the future. Currently 4 weeks post RFA continue current medication regimen, tolerating well without side effects and continues to find functional improvement continue HEP as tolerated continue TENS f/u 3 months, if pain in lumbar spine persists above patients expected level or patient continues to have bothersome signs of lumbar stenosis with NC consider lumbar MRI
== END 2023-07-31 08:41 | disposition home or self-care (01) ==
LOC: PM 08:40
PROVIDERS: PCP Family Medicine; Visit Provider Nurse Practitioner
DX: M47.816 Spondylosis without myelopathy or radiculopathy, lumbar region (principal); M79.18 Myalgia, other site; M48.062 Spinal stenosis, lumbar region with neurogenic claudication; E66.9 Obesity, unspecified; Z79.891 Long term (current) use of opiate analgesic; M25.561 Pain in right knee; M25.562 Pain in left knee; M54.50 Low back pain, unspecified
CPT/HCPCS: G0463

== ENCOUNTER 2023-10-08 08:45 | Outpatient (OUT) | payer BC, SELFPAY ==
--- NOTE | 2023-10-08 | XR_ITS ---
The [address] [address] Patient Name: CARLOS LOCKE MRN: [id number] date: 1955 Sex: M Assigned Patient Location: Current Patient Location: Accession/Order Number: [id number] Exam Date: 10/08/2023 08:55 Report Date: 10/09/2023 05:50 At the request of: TONIO BELL Procedure: XR foot LT min 3V PROCEDURE: XR foot LT min 3V HISTORY: LEFT FOOT PAIN COMPARISON: XR foot left 07/02/2023 FINDINGS: BONES:Prior mechanical fusion of the first tarsal-metatarsal joints with prior fracture of the dorsal plate. Resection of the head of the first proximal phalanx with stable irregular bony changes. SOFT TISSUES:Stable soft tissue swelling of first toe. EFFUSION:None visible. OTHER: Negative. XR/XR foot LT min 3V IMPRESSION: 1. Stable surgical changes with hardware failure at the first metatarsophalangeal joint. 2. Stable surgical changes and mild osseous irregularity/healing changes at the distal end of the first proximal phalanx. Osteomyelitis is felt less likely. Electronically authenticated by: ELIN MCCARTNEY Date: 10/09/2023 05:50
--- OUTSIDE RECORDS SUMMARY | 2023-10-08 08:49 | XMS_ITS | CCD ---
Author Organization [facility] Care Team Providers Care Die Maker Stamping Name Role Phone Racheal Daniels Unavailable Ant Alejandra Unavailable BENTLEY MACK Attending Unavailable ELY, DR RACHEAL Ayala Admitting Unavailable ELY, DR RACHEAL Ayala Consulting Unavailable ELY, DR RACHEAL Ayala Attending Unavailable BERRIOS ., DR FELISA Juarez Primary Care Unavailable ZIEBRONAK, DR ELIN Oliva Consulting Unavailable BERRIOS ., DR FELISA Juarez Primary Care Unavailable BERRIOS ., DR FELISA Juarez Attending Unavailable BERRIOS ., DR FELISA Juarez Consulting Unavailable BERRIOS ., DR FELISA Juarez Admitting Unavailable ELTAHAWLiza, DR SALCIDO Consulting Unavailable BERRIOS ., DR FELISA Juarez Primary Care Unavailable ELTAHAWY, DR SALCIDO Attending Unavailable ELTAHAWY, DR SALCIDO Admitting Unavailable BERRIOS ., DR [...] BOONE ., DR NATHALY Main Admitting Unavailable MAHAARJ, THEE Consulting Unavailable BOONE ., DR NATHALY [...] WEST, DR RACHEAL Ayala Admjulio césar Unavailable WEST, DR RACHEAL Ayala Consulting Unavailable WEST, DR RACHEAL Ayala Admjulio césar Unavailable BERRIOS ., DR FELISA Juarez Primary Care Unavailable WEST, DR RACHEAL Ayala Attending Unavailable BERRIOS ., DR FELISA Juarez Primary Care Unavailable WEST, DR RACHEAL Ayala Admjulio césar Unavailable WEST, DR RACHEAL Ayala Consulting Unavailable WEST, DR RACHEAL Ayala Attending Unavailable ZIEBER, DR ELIN Oliva Consulting Unavailable BERRIOS ., DR FELISA Juarez Primary Care Unavailable RAY, TONIO Latham Admitting Unavailable HIGHLANDER, PETER D Attending Unavailable HIGHLANDER, PETER D Attending Unavailable HIGHLANDER, PETER D Admitting Unavailable BERRIOS ., DR EFLISA Juarez Primary Care Unavailable BERRIOS ., DR FELISA Juarez Primary Care Unavailable HIGHLANDER, PETER D Admitting Unavailable HIGHLANDER, PETER D Attending Unavailable ZIEBER, DR ELIN Oliva Consulting Unavailable HIGHLANDER, PETER D Consulting Unavailable BERRIOS ., DR FELISA Juarez Primary Care Unavailable HIGHLANDER, PETER D Consulting Unavailable HIGHLANDER, PETER D Admitting Unavailable HIGHLANDER, PETER D Attending Unavailable ZAAFR FERRER Consulting Unavailable BERRIOS ., DR FELISA [...] ., DR FELISA Juarez Primary Care Unavailable ZIEBRONAK, DR ELIN Oliva Consulting Unavailable HIGHLANDER, PETER D Consulting Unavailable BERRIOS ., DR FELISA Juarez Primary Care Unavailable HIGHLANDER, PETER D Admitting Unavailable HIGHLANDER, PETER D Attending Unavailable ZIEBER, DR ELIN Oliva Consulting Unavailable HIGHLANDER, PETER D Consulting Unavailable NELIDA ., CECY BLACKMON Consulting Unavailable JENNIFER II, ALEJANDRA Consulting Unavailable TYLERYURI Consulting Unavailable KOTONIO POPE Consulting Unavailable BERRIOS ., DR FELISA Jaurez Primary Care Unavailable PAY ., DR MARTINEZ [...] Consulting Unavailable BERRIOS ., DR FELISA Juarez Admjulio césar Unavailable BERRIOS ., DR FELISA Juarez Primary Care Unavailable BOONE ., DR NATHALY Main Consulting Unavailable BOONE ., DR NATHALY Main Attending Unavailable BOONE ., DR NATHALY Main Admitting Unavailable JOHNSON .RODRIGO Unavailable WEST, DR RACHEAL Ayala Consulting Unavailable RUBEN ., DR FELISA Juarez Primary Care Unavailable [facility], DR STEWART Attending Unavailable [facility], DR STEWART Admitting Unavailable [facility], DR STEWART Consulting Unavailable WEST, DR RACHEAL Ayala Admitting Unavailable WEST, DR RACHEAL Ayala Consulting Unavailable WEST, DR RACHEAL Ayala Attending Unavailable BERRIOS ., DR FELISA Juarez Primary Care Unavailable KATINARONAK, DR ELIN Oliva Consulting Unavailable RUBEN ., DR FELISA Juarez Primary Care Unavailable WEST, DR RACHEAL Ayala Admitting Unavailable WEST, DR RACHEAL Ayala Consulting Unavailable WEST, DR RACHEAL Ayala Attending Unavailable ZIEBER, DR ELIN Oliva Consulting Unavailable WEST, DR [...] sources) Acetaminophen / oxyCODONE Drug Allergy Unknown Timeet Other (1 source) Acetaminophen / oxyCODONE; Translations: [OXYCODONE-ACETAM INOPHEN] Drug Allergy 3 [facility] Repository (3 sources) oxyCODONE; Translations: [OXYCODONE] Drug Allergy 3 Hyperactive behavior (finding) [facility] Repository (1 source) Acetaminophen / oxyCODONE Drug Allergy [facility] Repository (1 source) oxyCODONE; Translations: [OxyCODONE Hydrochloride] Drug Allergy [facility] Repository Medications Current Medications Medication Drug [...] 20mg/24hrs, # 20 tab(s), Refills(s) 3, Pharmacy: [facility]/pharmacy #[id number], 188, cm, 06/03/23 10:01:00 EST, [...] needed, # 2 tab(s), Refills(s) 0, Pharmacy: [facility]/pharmacy #[id number], 185.4, cm, 12/05/20 11:15:00 EDT, [...] Resolved: 2 Chronic Other aftercare (1 source) 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 00TIFF Normal [facility] Lab Reportson 06-06-2023 Lab Reports [id number]#1.00 TIFF Normal [facility] RAD - MISCon 06-04-2023 RAD - MISC [id number]#1.00 TIFF Normal [facility] Screenson 06-04-2023 Screens [id number]#1. 00TIFF Normal [facility] Patient Educationon 06-03-20 Patient Education Oncology [...] Where to find more information ? The [employer] [employer]: www.cancer.org ? [employer]: www.auanet.org Contact a health care [...] adds flu (more content not included)... Normal [facility] Urology Office/Clinic Noteon 06-03-2023 Urology Office/Clinic [...] Calculus of kidney) CT AP wo/w con 04/21/21 [facility] - R renal stones, measuring up [...] When Contact Information LIZ HERNANDEZ PA-C, URL [address] [place] [address] [phone] Additional Instructions: 6 mos w/ PSA Patient Education Prostate Cancer Screening Documentation recorded by the scribchris Burr accurately reflects the services(s) I performed [...] guided bi (more content not included)... Normal [facility] Comment on above: Result Comment: Elec tronically Signed By: LIZ HERNANDEZ PA-C\.br\Date and Time Signed: 06/03/23 11:48 EST\.br\Electronically Co-Signed By: Maru Burr\Rustybr\Date and Time Co-Signed: 06/03/23 10:26 EST Immunization Recordson 04-23 Immunization Records [id number]#1. 00TIFF Normal [facility] Consultation Noteon 04-15-20 Consultation Note [id number]#1.0 0CD:127 Normal [facility] RAD - MISCon 12-24-2022 RAD - MISC [id number]#1.00 CD:127 Normal [facility] XR LSPINE W_OBLS AND FLEX_EX Ton [...] by: RACHEAL GRAVES Date: 2022-12-05 09:46 Normal [facility] Consultation Noteon 12-05-19 23 Consultation Note [id number]#1.0 0CD:127 Normal [facility] Operative Reporton Operative Report [id number]#1.0 0CD:127 Normal [facility] CBC AUTO DIFFon 10-21-2022 BASO # 0.1 103/ul Normal 0.0-0.1 [facility] Comment on above: Performed By: #### P OCGLUC #### [facility] [address] [place] [address] Dr. Juliet García Basophils/100 WBC (Bld) 0.7 % Normal 0.2-2.0 [facility] Comment on above: Performed By: #### P OCGLUC #### [facility] [address] [place] [address] Dr. Juliet García EO # 0.4 103/ul Normal 0.0-0.7 [facility] Comment on above: Performed By: #### P OCGLUC #### [facility] [address] [place] [address] Dr. Juliet García Eosinophils/100 WBC (Bld) 5.3 % Normal 0.9-7.0 [facility] Comment on above: Performed By: #### P OCGLUC #### [facility] [address] [place] [address] Dr. Juliet García Erythrocyte distribution width (RBC) [Ratio] 14.0 % Normal 11.0-15.0 [facility] Comment on above: Performed By: #### P OCGLUC #### [facility] [address] [place] [address] Dr. Juliet García Hematocrit (Bld) [Volume fraction] 43.6 % Normal 42.0-54.0 [facility] Comment on above: Performed By: #### P OCGLUC #### [facility] [address] [place] [address] Dr. Juliet García Hemoglobin (Bld) [Mass/Vol] 14.9 g/dL Normal 14.0-18.0 [facility] Comment on above: Performed By: #### P OCGLUC #### [facility] [address] [place] [address] Dr. Juliet García IG # 0.03 10e3/ul Normal 0.00-0.03 [facility] Comment on above: Performed By: #### P OCGLUC #### [facility] [address] [place] [address] Dr. Juliet García IG % 0.4 % Normal 0.0-0.5 [facility] Comment on above: Performed By: #### P OCGLUC #### [facility] [address] [place] [address] Dr. Juliet García LYMPH # 2.0 103/ul Normal 1.2-3.8 [facility] Comment on above: Performed By: #### P OCGLUC #### [facility] [address] [place] [address] Dr. Juliet García Lymphocytes/100 WBC (Bld) 29.3 % Normal 20.5-60.0 [facility] Comment on above: Performed By: #### P OCGLUC #### [facility] [address] [address] [address] Juliet García MANUAL DIFF REQ NO Normal [facility] Comment on above: Performed By: #### P OCGLUC #### [facility] [address] [address] [address] Juliet Gracía MCH (RBC) [Entitic mass] 33.4 pg Normal 25.9-34.0 [facility] Comment on above: Performed By: #### P OCGLUC #### [facility] [address] [address] [address] Juliet García MCHC (RBC) [Mass/Vol] 34.2 g/dL Normal 29.9-35.2 [facility] Comment on above: Performed By: #### P OCGLUC #### [facility] [address] [place] [address] Dr. Juliet García MCV (RBC) [Entitic vol] 97.8 fL Critically high 80.0-94.0 [facility] Comment on above: Performed By: #### P OCGLUC #### [facility] [address] [place] [address] Dr. Juliet García MONO # 0.7 103/ul Normal 0.3-0.8 [facility] Comment on above: Performed By: #### P OCGLUC #### [facility] [address] [address] [address] Juliet García Monocytes/100 WBC (Bld) 9.9 % Normal 1.7-12.0 [facility] Comment on above: Performed By: #### P OCGLUC #### [facility] [address] [place] [address] Dr. Juliet García NEUT # 3.7 103/ul Normal 1.4-6.5 [facility] Comment on above: Performed By: #### P OCGLUC #### [facility] [address] [address] [address] Juliet García Neutrophils/100 WBC (Bld) 54.4 % Normal 43.0-75.0 [facility] Comment on above: Performed By: #### P OCGLUC #### [facility] [address] [address] [address] Juliet García Platelet mean volume (Bld) [Entitic vol] 9.0 fL Critically low 9.5-13.5 [facility] Comment on above: Performed By: #### P OCGLUC #### [facility] [address] [address] [address] Juliet García PLT 211 103/ul Normal 150-450 [facility] Comment on above: Performed By: #### P OCGLUC #### [facility] [address] [address] [address] Juliet García RBC 4.46 106/ul Critically low 4.70-6.10 [facility] Comment on above: Performed By: #### P OCGLUC #### [facility] [address] [address] [address] Juliet García WBC 6.8 103/ul Normal 4.0-11.0 [facility] Comment on above: Performed By: #### P OCGLUC #### [facility] [address] [address] [address] Juliet García POINT OF CARE GLUCOSEon 10-12 Glucose [Mass/Vol] 100 mg/dL Normal 74-106 [facility] Comment on above: Performed By: #### P OCGLUC #### [facility] [address] [address] [address] Juliet García Glucose [Mass/Vol] 94 mg/dL Normal 74-106 [facility] Comment on above: Performed By: #### A 1C #### [facility] [address] [address] [address] Juliet García Lab Reportson 10-14-2022 Lab Reports [id number]#1.0 0CD:127 Normal [facility] Outside Hospital Correspo ndenceon 10-14-2022 Outside [facility] Correspondence [id number] 0CD:127 Normal [facility] PROF CHEM 8 (BAS METB)on Anion gap [Moles/Vol] 14.0 mmol/L Normal [facility] Comment on above: Performed By: #### B MP #### [facility] [address] [address] [address] Juliet García Calcium [Mass/Vol] 9.0 mg/dL Normal 8.5-10.1 [facility] Comment on above: Performed By: #### B MP #### [facility] [address] [address] [address] Juliet García Chloride [Moles/Vol] 107 mmol/L Normal 98-107 [facility] Comment on above: Performed By: #### B MP #### [facility] [address] [place] [address] Dr. Juliet García CO2 [Moles/Vol] 28.7 mmol/L Normal 21.0-32.0 [facility] Comment on above: Performed By: #### B MP #### [facility] [address] [address] [address] Juliet García Creatinine [Mass/Vol] 1.41 mg/dL Critically high 0.70-1.30 [facility] Comment on above: Performed By: #### B MP #### [facility] [address] [place] [address] Dr. Juliet García EGFR-AF BANGLADESHI >60 Normal >=60 [facility] Comment on above: Performed By: #### B MP #### [facility] [address] [address] [address] Juliet García EGFR-NON AF BANGLADESHI 50 mL/min/1.73m2 Critically low >=60 [facility] Comment on above: Performed By: #### B MP #### [facility] [address] [address] [address] Juliet García Glucose [Mass/Vol] 95 mg/dL Normal 74-106 [facility] Comment on above: Performed By: #### B MP #### [facility] [address] [address] [address] Juliet García Potassium [Moles/Vol] 4.7 mmol/L Normal 3.5-5.1 [facility] Comment on above: Performed By: #### B MP #### [facility] [address], [place] [address] Dr. Juliet García Sodium [Moles/Vol] 145 mmol/L Normal 136-145 [facility] Comment on above: Performed By: #### B MP #### [facility] [address], [place] [address] Dr. Juliet García Urea nitrogen [Mass/Vol] 25.0 mg/dL Critically high 7.0-18.0 [facility] Comment on above: Performed By: #### B MP #### [facility] [address], [place] [address] Dr. Juliet García Urea nitrogen/Creatinine [Mass ratio] 17.7 mg/mg Normal [facility] Comment on above: Performed By: #### B MP #### [facility] [address], [place] [address] Dr. Juliet García Office Visiton 07-31-2022 Follow-up visit [id number] Carlos Locke 1955 M Date Provider Department Center 07/31/2022 BENTLEY MENDOZA SUSHANT [facility] Family History Problem Relation Age of Onset Stroke Father Family Status - Relation Status Age at Father Level of Service:49421 [place] OFFICE/OUTPATIENT ESTABLISHED MOD MDM 30-39 MIN Reason for Visit and Comments: Hyperlipidemia [182] Hypertension [207924] history of PE [Other] Normal [facility] CULTURE WOUNDon 07-24-2022 CULTURE WOUND Culture Observations : No growth of anaerobes at 72 hours. Isolate 1 Stenotrophomonas maltophilia Moderate growth of ORGANISM 1 Stenotrophomonas maltophilia ANTIBIOTIC M.I.C RX STATUS Levofloxacin 1 S F Trimethoprim/Sulfameth oxazole <=20 S F Normal [facility] Comment on above: Performed By: #### W OUNDCX ####[facility] [id number] [place], [place] [address]JsDr. Juliet García GLYCOHEMOGLOBIN A1Con 2022 ADA RECOMMENDATION SEE BELOW Normal [facility] Comment on above: Result Comment: ADA RECOMMENDED LIMIT 4.0 - 6.0 ADA THERAPEUTIC TARGET < 7.0 ACTION SUGGESTED > 7.0 Performed By: #### A 1C #### [facility] [address], [place] [address] Dr. Juliet García Glucose [Mass/Vol] 111 mg/dL Normal [facility] Comment on above: Performed By: #### A 1C #### [facility] [address], [place] [address] Dr. Juliet García HbA1c (Bld) [Mass fraction] 5.5 % Normal 4.5-6.2 [facility] Comment on above: Performed By: #### A 1C #### [facility] [address], [place] [address] Dr. Juliet García ECHOCARDIO M/2D COMPLETEon 1 08-29-2021 ECHOCARDIO M/2D COMPLETE Patient: CARLOS LOCKE Exam Date: 06/28/2022 : 1955 Gender:M Ordering : DR LOLY BARNARD M.D. Admission #: [id number] Family : Order #: [id number] CLICK HERE TO VIEW EXAM ECHOCARDIOGRAM REPORT [...] M.D. on 07/04/2022 at 13:38 Normal [facility] URIC ACID SERUMon 06-10-2022 Urate [Mass/Vol] 6.9 mg/dL Normal 3.5-7.2 [facility] Comment on above: Performed By: #### A 1C #### [facility] [address] [place] [address] Dr. Juliet García XR KUB 1 VIEWon [...] RACHEAL GRAVES Date: 2022-05-28 07:31 Normal [facility] CBC AUTO DIFFon 05-03-2022 BASO # 0.1 103/ul Normal 0.0-0.1 [facility] Comment on above: Performed By: #### C BC #### [facility] [address] [place] [address] Dr. Juliet García Basophils/100 WBC (Bld) 0.9 % Normal 0.2-2.0 [facility] Comment on above: Performed By: #### C BC #### [facility] [address] [place] [address] Dr. Juliet García EO # 0.4 103/ul Normal 0.0-0.7 [facility] Comment on above: Performed By: #### C BC #### [facility] [address] [place] [address] Dr. Juliet García Eosinophils/100 WBC (Bld) 5.2 % Normal 0.9-7.0 [facility] Comment on above: Performed By: #### C BC #### [facility] [address] [address] [address] Juliet García Erythrocyte distribution width (RBC) [Ratio] 13.6 % Normal 11.0-15.0 [facility] Comment on above: Performed By: #### C BC #### [facility] [address] [place] [address] Dr. Juliet García Hematocrit (Bld) [Volume fraction] 40.5 % Critically low 42.0-54.0 [facility] Comment on above: Performed By: #### C BC #### [facility] [address] [address] [address] Juliet García Hemoglobin (Bld) [Mass/Vol] 13.7 g/dL Critically low 14.0-18.0 [facility] Comment on above: Performed By: #### C BC #### [facility] [address] [address] [address] Juliet García IG # 0.02 10e3/ul Normal 0.00-0.03 [facility] Comment on above: Performed By: #### C BC #### [facility] [address] [place] [address] Dr. Juliet García IG % 0.3 % Normal 0.0-0.5 [facility] Comment on above: Performed By: #### C BC #### [facility] [address] [place] [address] Dr. Juliet García LYMPH # 1.9 103/ul Normal 1.2-3.8 [facility] Comment on above: Performed By: #### C BC #### [facility] [address] [place] [address] Dr. Juliet García Lymphocytes/100 WBC (Bld) 27.7 % Normal 20.5-60.0 [facility] Comment on above: Performed By: #### C BC #### [facility] [address] [place] [address] Dr. Juliet García MANUAL DIFF REQ NO Normal [facility] Comment on above: Performed By: #### C BC #### [facility] [address] [place] [address] Dr. Juliet García MCH (RBC) [Entitic mass] 33.3 pg Normal 25.9-34.0 [facility] Comment on above: Performed By: #### C BC #### [facility] [address] [place] [address] Dr. Juliet García MCHC (RBC) [Mass/Vol] 33.8 g/dL Normal 29.9-35.2 [facility] Comment on above: Performed By: #### C BC #### [facility] [address] [address] [address] Juliet García MCV (RBC) [Entitic vol] 98.3 fL Critically high 80.0-94.0 [facility] Comment on above: Performed By: #### C BC #### [facility] [address] [address] [address] Juliet García MONO # 0.7 103/ul Normal 0.3-0.8 [facility] Comment on above: Performed By: #### C BC #### [facility] [address] [address] [address] Juliet García Monocytes/100 WBC (Bld) 9.9 % Normal 1.7-12.0 [facility] Comment on above: Performed By: #### C BC #### [facility] [address] [address] [address] Juliet García NEUT # 3.8 103/ul Normal 1.4-6.5 [facility] Comment on above: Performed By: #### C BC #### [facility] [address] [address] [address] Juliet García Neutrophils/100 WBC (Bld) 56.0 % Normal 43.0-75.0 [facility] Comment on above: Performed By: #### C BC #### [facility] [address] [address] [address] Juliet García Platelet mean volume (Bld) [Entitic vol] 9.0 fL Critically low 9.5-13.5 [facility] Comment on above: Performed By: #### C BC #### [facility] [address] [address] [address] Juliet García PLT 201 103/ul Normal 150-450 [facility] Comment on above: Performed By: #### C BC #### [facility] [address] [address] [address] Juliet García RBC 4.12 106/ul Critically low 4.70-6.10 [facility] Comment on above: Performed By: #### C BC #### [facility] [address] [address] [address] Juliet García WBC 6.7 103/ul Normal 4.0-11.0 [facility] Comment on above: Performed By: #### C BC #### [facility] [address] [address] [address] Juliet García GLYCOHEMOGLOBIN A1Con 2021 ADA RECOMMENDATION SEE BELOW Normal [facility] Comment on above: Result Comment: ADA RECOMMENDED LIMIT 4.0 - 6.0 ADA THERAPEUTIC TARGET < 7.0 ACTION SUGGESTED > 7.0 Performed By: #### A 1C #### [facility] [address] [address] [address] Juliet García Glucose [Mass/Vol] 108 mg/dL Normal [facility] Comment on above: Performed By: #### A 1C #### [facility] [address] [place] [address] Dr. Juliet García HbA1c (Bld) [Mass fraction] 5.4 % Normal 4.5-6.2 [facility] Comment on above: Performed By: #### A 1C #### [facility] [address] [place] [address] Dr. Juliet García LIPID PROFILEon 05-03-2022 CHOL-HDL RATIO NORM SEE BELOW Normal [facility] Comment on above: Result Comment: 3.3 - 4.4 LOW RISK 4.4 - 7.1 AVERAGE RISK 7.1 - 11.0 MODERATE RISK >11.0 HIGH RISK Performed By: #### L IPID, CMP #### [facility] [address] [place] [address] Dr. Juliet García Cholesterol [Mass/Vol] 154 mg/dL Normal <=200 [facility] Comment on above: Performed By: #### L IPID, CMP #### [facility] [address] [address] [address] Juliet García Cholesterol in HDL [Mass/Vol] 29 mg/dL Critically low 40-60 [facility] Comment on above: Performed By: #### L IPID, CMP #### [facility] [address] [address] [address] Juliet García Cholesterol in LDL [Mass/Vol] 64.2 mg/dL Normal [facility] Comment on above: Performed By: #### L IPID, CMP #### [facility] [address] [address] [address] Juliet García Cholesterol.total/Ch olesterol in HDL [Mass ratio] 5.3 {ratio} Normal [facility] Comment on above: Performed By: #### L IPID, CMP #### [facility] [address] [address] [address] Juliet García HDL NORMAL > or = 60 mg/dl - LO W CARDIOVASCULAR RISK <40 mg/dl - HIGH CARDIOVASCULAR RISK Normal [facility] Comment on above: Performed By: #### L IPID, CMP #### [facility] [address] [place] [address] Dr. Juliet García LDL CALC NORMAL SEE BELOW Normal [facility] Comment on above: Result Comment: <100 mg/dl OPTIMAL 100 - 129 mg/dl NEAR OR ABOVE OPTIMAL 130 - 159 mg/dl BORDERLINE HIGH 160 - 189 mg/dl HIGH >190 mg/dl VERY HIGH Performed By: #### L IPID, CMP #### [facility] [address] [place] [address] Dr. Juliet García Triglyceride [Mass/Vol] 304 mg/dL Critically high <=150 [facility] Comment on above: Performed By: #### L IPID, CMP #### [facility] [address] [place] [address] Dr. Juliet García VLDL CALC 60.8 mg/dL Normal [facility] Comment on above: Performed By: #### L IPID, CMP #### [facility] [address] [address] [address] Juliet García PROF 14(COMP METB)on 022 Albumin [Mass/Vol] 3.7 g/dL Normal 3.4-5.0 [facility] Comment on above: Performed By: #### L IPID, CMP #### [facility] [address] [place] [address] Dr. Juliet García Albumin/Globulin [Mass ratio] 1.1 {ratio} Normal [facility] Comment on above: Performed By: #### L IPID, CMP #### [facility] [address] [place] [address] Dr. Juliet García ALP [Catalytic activity/Vol] 87 U/L Normal 46-116 [facility] Comment on above: Performed By: #### L IPID, CMP #### [facility] [address] [place] [address] Dr. Juliet Garíca ALT [Catalytic activity/Vol] 52 U/L Normal 16-63 [facility] Comment on above: Performed By: #### L IPID, CMP #### [facility] [address] [place] [address] Dr. Juliet García Anion gap [Moles/Vol] 11.5 mmol/L Normal [facility] Comment on above: Performed By: #### L IPID, CMP #### [facility] [address] [place] [address] Dr. Juliet García AST [Catalytic activity/Vol] 27 U/L Normal 15-37 [facility] Comment on above: Performed By: #### L IPID, CMP #### [facility] [address] [place] [address] Dr. Juliet García Bilirubin [Mass/Vol] 0.4 mg/dL Normal 0.2-1.0 [facility] Comment on above: Performed By: #### L IPID, CMP #### [facility] [address] [place] [address] Dr. Juliet García Calcium [Mass/Vol] 8.7 mg/dL Normal 8.5-10.1 [facility] Comment on above: Performed By: #### L IPID, CMP #### [facility] [address] [place] [address] Dr. Juliet García Chloride [Moles/Vol] 106 mmol/L Normal 98-107 [facility] Comment on above: Performed By: #### L IPID, CMP #### [facility] [address] [place] [address] Dr. Juliet García CO2 [Moles/Vol] 28.2 mmol/L Normal 21.0-32.0 [facility] Comment on above: Performed By: #### L IPID, CMP #### [facility] [address] [place] [address] Dr. Juliet García Creatinine [Mass/Vol] 1.21 mg/dL Normal 0.70-1.30 [facility] Comment on above: Performed By: #### L IPID, CMP #### [facility] [address] [address] [address] Juliet García EGFR-AF BANGLADESHI >60 Normal >=60 [facility] Comment on above: Performed By: #### L IPID, CMP #### [facility] [address] [place] [address] Dr. Juliet García EGFR-NON AF BANGLADESHI =60 Normal >=60 [facility] Comment on above: Performed By: #### L IPID, CMP #### [facility] [address] [place] [address] Dr. Juliet García Globulin (S) [Mass/Vol] 3.4 g/dL Normal [facility] Comment on above: Performed By: #### L IPID, CMP #### [facility] [address] [place] [address] Dr. Juliet García Glucose [Mass/Vol] 100 mg/dL Normal 74-106 [facility] Comment on above: Performed By: #### L IPID, CMP #### [facility] [address] [place] [address] Dr. Juliet Garcaí Potassium [Moles/Vol] 4.7 mmol/L Normal 3.5-5.1 [facility] Comment on above: Performed By: #### L IPID, CMP #### [facility] [address] [place] [address] Dr. Juliet García Protein [Mass/Vol] 7.1 g/dL Normal 6.4-8.2 [facility] Comment on above: Performed By: #### L IPID, CMP #### [facility] [address] [place] [address] Dr. Juliet García Sodium [Moles/Vol] 141 mmol/L Normal 136-145 [facility] Comment on above: Performed By: #### L IPID, CMP #### [facility] [address] [address] [address] Juliet García Urea nitrogen [Mass/Vol] 23.0 mg/dL Critically high 7.0-18.0 [facility] Comment on above: Performed By: #### L IPID, CMP #### [facility] [id number] Juliet García Urea nitrogen/Creatinine [Mass ratio] 19.0 mg/mg Normal [facility] Comment on above: Performed By: #### L IPID, CMP #### [facility] [address] [address] [address] Juliet García VC CONSULT FOLLOWUPon 2021 VC CONSULT FOLLOWUP Patient: CARLOS LOCKE Exam Date: 04/08/2022 : 1955 Gender:M Ordering : DR RACHEAL GRAVES M.D. Admission #: [id number] Family : Order #: [id number] CLICK HERE [...] Racheal Graves MD on 04/08/2022 at 11:30 [facility] VC EXT VENOUS RT LIMITEDon 0 04-08-2022 VC EXT VENOUS RT LIMITED Patient: CARLOS LOCKE Exam Date: 04/08/2022 : 1955 Gender:M Ordering : DR RACHEAL GRAVES M.D. Admission #: [id number] Family : Order #: [id number] CLICK HERE TO VIEW EXAM RADIOLOGY REPORT [...] Racheal Graves MD on 04/08/2022 at 11:31 [facility] VC INJ FOAM SCLERO W US MLTI on 04-03-2022 VC INJ FOAM SCLERO W US MLTI Patient: CARLOS LOCKE Exam Date: 04/03/2022 : 1955 Gender:M Ordering : DR RACHEAL GRAVES M.D. Admission #: [id number] Family : DR NATHALY BOONE . Order #: [id number] CLICK HERE TO VIEW EXAM RADIOLOGY REPORT [...] av (more content not included)... Normal [facility] VC CONSULT FOLLOWUPon 2021 VC CONSULT FOLLOWUP Patient: CARLOS LOCKERusty Exam Date: 03/25/2022 : 1955 Gender:M Ordering : DR RACHEAL GRAVES M.D. Admission #: [id number] Family : Order #: [id number] CLICK HERE TO VIEW EXAM RADIOLOGY REPORT [...] Elin Kenny M.D. on 03/25/2022 at 08:41 [facility] VC EXT VENOUS RT LIMITEDon 0 03-25-2022 VC EXT VENOUS RT LIMITED Patient: CARLOS LOCKE Exam Date: 03/25/2022 : 1955 Gender:M Ordering : DR RACHEAL GRAVES M.D. Admission #: [id number] Family : Order #: [id number] CLICK HERE TO VIEW EXAM RADIOLOGY REPORT [...] Kenny M.D. on 03/25/2022 at 08:39 Normal [facility] VC ENDOVENOUS ABL 1ST V RTon 03-19-2022 VC ENDOVENOUS ABL 1ST V RT Patient: CARLOS LOCKE Exam Date: 03/19/2022 : 1955 Gender:M Ordering : DR RACHEAL GRAVES M.D. Admission #: [id number] Family : Order #: [id number] CLICK HERE TO VIEW EXAM RADIOLOGY REPORT [...] Graves MD on 03/19/2022 at 08:58 Normal [facility] VC CONSULT FOLLOWUPon 2021 VC CONSULT FOLLOWUP Patient: CARLOS LOCKE Exam Date: 02/18/2022 : 1955 Gender:M Ordering : DR RACHEAL GRAVES M.D. Admission #: [id number] Family : Order #: [id number] CLICK HERE TO VIEW EXAM RADIOLOGY REPORT [...] Graves MD on 02/18/2022 at 09:45 Normal [facility] VC EXT VENOUS LT LIMITEDon 0 02-18-2022 VC EXT VENOUS LT LIMITED Patient: CARLOS LOCKE Exam Date: 02/18/2022 : 1955 Gender:M Ordering : DR RACHEAL GRAVES M.D. Admission #: [id number] Family : Order #: [id number] CLICK HERE TO VIEW EXAM RADIOLOGY REPORT [...] varicose veins remain off of SSV and driver/guide mid posterior calf. *Exam performed in accordance with [facility] practice guidelines- Peripheral venous ultrasound, October 07, 2009. CONCLUSION: Post ablation occlusion of left leg varicose veins Dictated by: Racheal Graves MD on 02/18/2022 at 09:32 Approved by: Racheal Graves MD on 02/18/2022 at 09:36 Normal [facility] VC INJ FOAM SCLERO W US MLTI on 02-13-2022 VC INJ FOAM SCLERO W US MLTI Patient: CARLOS LOCKE Exam Date: 02/13/2022 : 1955 Gender:M Ordering : DR RACHEAL GRAVES M.D. Admission #: [id number] Family : Order #: [id number] CLICK HERE TO VIEW EXAM RADIOLOGY REPORT [...] Kenny M.D. on 02/13/2022 at 10:15 Normal [facility] VC CONSULT FOLLOWUPon 2021 VC CONSULT FOLLOWUP Patient: CARLOS LOCKE Exam Date: 02/06/2022 : 1955 Gender:M Ordering : DR RACHEAL GRAVES M.D. Admission #: [id number] Family : Order #: [id number] CLICK HERE TO VIEW EXAM RADIOLOGY REPORT [...] Kenny M.D. on 02/06/2022 at 09:53 Normal [facility] VC EXT VENOUS LT LIMITEDon 0 02-06-2022 VC EXT VENOUS LT LIMITED Patient: CARLOS LOCKE Exam Date: 02/06/2022 : 1955 Gender:M Ordering : DR RACHEAL GRAVES M.D. Admission #: [id number] Family : Order #: [id number] CLICK HERE TO VIEW EXAM RADIOLOGY REPORT PROCEDURE: VEIN CENTER EXTREMITY VENOUS LEFT LIMITED COMPARISON: VC VENOUS REFLUX MARIE LMT, 01/21/2022. INDICATIONS: Phlebitis and thrombophlebitis of superficial veins of left lower extremity I80.02 TECHNIQUE: Lower extremity dnucan scale and Duplex Doppler evaluation of the [...] Kenny M.D. on 02/06/2022 at 09:49 Normal [facility] GLYCOHEMOGLOBIN A1Con 2021 ADA RECOMMENDATION SEE BELOW Normal [facility] Comment on above: Result Comment: ADA RECOMMENDED LIMIT 4.0 - 6.0 ADA THERAPEUTIC TARGET < 7.0 ACTION SUGGESTED > 7.0 Performed By: #### A 1C #### [facility] [address] [address] [address] Juliet García Glucose [Mass/Vol] 108 mg/dL Normal [facility] Comment on above: Performed By: #### A 1C #### [facility] [address] [address] [address] Juliet García HbA1c (Bld) [Mass fraction] 5.4 % Normal 4.5-6.2 [facility] Comment on above: Performed By: #### A 1C #### [facility] [address] [address] [address] Juliet García PROF 14(COMP METB)on 022 Albumin [Mass/Vol] 4.0 g/dL Normal 3.4-5.0 [facility] Comment on above: Performed By: #### C MP ####[facility] [address] [address]Dr. Juliet García Albumin/Globulin [Mass ratio] 1.2 {ratio} Normal [facility] Comment on above: Performed By: #### C MP ####[facility] [address] [address]Dr. Juliet García ALP [Catalytic activity/Vol] 89 U/L Normal 46-116 [facility] Comment on above: Performed By: #### C MP ####[facility] [address] [address]Dr. Juliet García ALT [Catalytic activity/Vol] 81 U/L Critically high 16-63 [facility] Comment on above: Performed By: #### C MP ####[facility] [address] [address]Dr. Juliet García Anion gap [Moles/Vol] 13.6 mmol/L Normal [facility] Comment on above: Performed By: #### C MP ####[facility] [address] [place], [place] [address]Dr. Juliet García AST [Catalytic activity/Vol] 32 U/L Normal 15-37 [facility] Comment on above: Performed By: #### C MP ####[facility] [address] [place], [place] [address]Dr. Juliet García Bilirubin [Mass/Vol] 0.5 mg/dL Normal 0.2-1.0 [facility] Comment on above: Performed By: #### C MP ####[facility] [address] [address]Dr. Juliet García Calcium [Mass/Vol] 8.9 mg/dL Normal 8.5-10.1 [facility] [place] [facility] Comment on above: Performed By: #### C MP ####[facility] [address] [address]Dr. Juliet García Chloride [Moles/Vol] 106 mmol/L Normal 98-107 [facility] Comment on above: Performed By: #### C MP ####[facility] [address] [address]Dr. Juliet García CO2 [Moles/Vol] 27.1 mmol/L Normal 21.0-32.0 [facility] Comment on above: Performed By: #### C MP ####[facility] [address] [address]Dr. Juliet García Creatinine [Mass/Vol] 1.46 mg/dL Critically high 0.70-1.30 [facility] Comment on above: Performed By: #### C MP ####[facility] [address] [address]Dr. Juliet García EGFR-AF BANGLADESHI 59 mL/min/1.73m2 Critically low >=60 [facility] Comment on above: Performed By: #### C MP ####[facility] [address] [address]Dr. Juliet García EGFR-NON AF BANGLADESHI 48 mL/min/1.73m2 Critically low >=60 [facility] Comment on above: Performed By: #### C MP ####[facility] [address] [address]Dr. Juliet García Globulin (S) [Mass/Vol] 3.4 g/dL Normal [facility] Comment on above: Performed By: #### C MP ####[facility] [address] [address]Dr. Juliet García Glucose [Mass/Vol] 93 mg/dL Normal 74-106 [facility] [place] [facility] Comment on above: Performed By: #### C MP ####[facility] [address] [address]Dr. Juliet García Potassium [Moles/Vol] 4.7 mmol/L Normal 3.5-5.1 [facility] Comment on above: Performed By: #### C MP ####[facility] [address] [place], [place] [address]Cm. Juliet García Protein [Mass/Vol] 7.4 g/dL Normal 6.4-8.2 [facility] [place] [facility] Comment on above: Performed By: #### C MP ####[facility] [address] [place], [place] [address]Dl. Juliet García Sodium [Moles/Vol] 142 mmol/L Normal 136-145 [facility] [place] [facility] Comment on above: Performed By: #### C MP ####[facility] [address] [place], [place] [address]Aw. Juliet García Urea nitrogen [Mass/Vol] 25.0 mg/dL Critically high 7.0-18.0 [facility] Comment on above: Performed By: #### C MP ####[facility] [address] [address]Dr. Juliet García Urea nitrogen/Creatinine [Mass ratio] 17.1 mg/mg Normal [facility] Comment on above: Performed By: #### C MP ####[facility] [address] [place], [place] [address]Qd. Juliet García VC ENDOVENOUS ABL 1ST V LTon 01-30-2022 VC ENDOVENOUS ABL 1ST V LT Patient: CARLOS LOCKE Exam Date: 01/30/2022 : 1955 Gender:M Ordering : DR RACHEAL GRAVES M.D. Admission #: [id number] Family : Order #: [id number] CLICK HERE TO VIEW EXAM RADIOLOGY REPORT [...] M.D. on 01/30/2022 at 12:00 Normal [facility] POINT OF CARE GLUCOSEon 01-11 Glucose [Mass/Vol] 84 mg/dL Normal 74-106 [facility] Comment on above: Performed By: #### P OCGLUC #### [facility] [address] [address] [address] Juliet García VC COMP CONSULTATIONon 01-21 VC COMP CONSULTATION Patient: CARLOS LOCKE Exam Date: 01/21/2022 : 1955 Gender:M Ordering : DR RACHEAL GRAVES M.D. Admission #: [id number] Family : Order #: [id number] CLICK HERE TO VIEW EXAM RADIOLOGY REPORT [...] for years. The patient is retired from [employer] after working 42 years. The patient denies [...] any additional information, and this was performed [facility]. See separate history and physical [...] incompetent branch saphenous tributary/varicose veins. Bilateral incompetent driver/guide veins. PHYSICAL EXAM: The right leg demonstrates [...] pulses were present bilaterally. IMPRESSION: 1. Bilateral [id number]-[id number] great saphenous vein and mild right small [...] MD on 01/21/2022 at 11:46 Normal [facility] VC VENOUS REFLUX MARIE LMTon 0 01-21-2022 VC VENOUS REFLUX MARIE LMT Patient: CARLOS LOCKERusty Exam Date: 01/21/2022 : 1955 Gender:M Ordering : DR RACHEAL GRAVES M.D. Admission #: [id number] Family : DR ANDERSEN EtelvinaRusty BOONE . Order #: [id number] CLICK HERE TO VIEW EXAM RADIOLOGY REPORT [...] Compressibility: Normal. Flow: Mild deep venous reflux. Coffin Maker: Post/prox calf 5.9mm, 0.7s reflux. Prox/med calf [...] Graves MD on 01/21/2022 at 10:40 Normal [facility] POINT OF CARE GLUCOSEon - Glucose [Mass/Vol] 87 mg/dL Normal 74-106 [facility] Comment on above: Performed By: #### P OCGLUC ####[facility] [address] [place], [place] [address]Mu. Juliet García SURGICAL PATHOLOGYon 021 SURGICAL PATHOLOGY Specimen #: [id number] Submitting Physician: JULIET GARCÍA M.D. FINAL DIAGNOSIS [place], [place]; [id number] (12/07/2020) Liver, mass , biopsy (A1, A2, [...] do not hesitate to contact us at [phone] with questions or if additional follow up information becomes available. This case was reviewed in conjunction with the GI pathology fellow, Apoorva Diallo MD. The following stains were performed at the [facility] in order to further characterize [...] in-situ hybridization tests have been determined by [facility]'s [facility] [place] ([facility]) in a manner consistent with CLIA requirements. One or more of these tests have not been cleared or approved by the FDA. [facility] is regulated under CLIA as qualified to perform high-complexity testing. These tests are used for clinical purposes. They should not be regarded as investigational or for research. Nicolasa Cheema M.D. (Electronic Signature) _ SPECIMEN SUBMITTED A: 12 slides [id number] CLINICAL DATA Mass Date of Report: 03/27/2021 Date of Procedure: 03/16/2021 Date of Receipt: 03/15/2021 Submitted by: JULIET GARCÍA M.D. Location: Diagnostic interpretation performed at [address] [place] [address]. CLIA Number: [id number] Normal [facility] Comment on above: Performed By: #### S #### See report for performing lab information. Vital Signs Date Time Vital Sign Value Performing Clinician Facility 06-03-2023 09:59-0500 Blood Pressure Location LIZ HERNANDEZ [facility] 06-03-2023 09:59-0500 Diastolic blood pressure 74 mm[Hg] LIZ HERNANDEZ [facility] 06-03-2023 09:59-0500 Heart rate 70 /min LIZ HERNANDEZ [facility] 06-03-2023 09:59-0500 Respiratory rate 16 /min LIZ HERNANDEZ [facility] 06-03-2023 09:59-0500 Systolic blood pressure 138 mm[Hg] LIZ HERNANDEZ [facility] 05-23-2022 09:45-0500 Body height 187.96 cm Alejandra Olexa Other [facility] Other 05-23-2022 09:45-0500 Body mass index (BMI) [Ratio] 40.57 kg/m2 Alejandra Olexa Other [facility] Other 05-23-2022 09:45-0500 Body weight 143.34 kg Alejandra Olexa Other [facility] Other 08-07-2021 14:15-0500 Body height 187.96 cm Alejandra Olexa Other [facility] Other 08-07-2021 14:15-0500 Body mass index (BMI) [Ratio] 40.64 kg/m2 Alejandra Olexa Other [facility] Other 08-07-2021 14:15-0500 Body weight 143.61 kg Alejandra Olexa Other [facility] Other 04-12-2021 10:30-0400 Body height 187.96 cm Racheal Daniels Other [facility] Other 04-12-2021 10:30-0400 Body mass index (BMI) [Ratio] 41.75 kg/m2 Racheal Daniels Other [facility] Other 04-12-2021 10:30-0400 Body weight 147.51 kg Rcaheal Daniels Other [facility] Other 04-12-2021 10:30-0400 Diastolic blood pressure 71 mm[Hg] Racheal Daniels Other [facility] Other 04-12-2021 10:30-0400 Systolic blood pressure 131 mm[Hg] Racheal Daniels Other [facility] Other Encounters Encounter Date Encounter Type Care Provider Facility Start: 11-04-2023 ambulatory MARZENA HERNANDEZ Facility:[facility] Start: 07-23-2023 End: 07-23-2023 ambulatory HARINDER GERMÁNHazel Not Available Start: 06-30-2023 End: 07-01-2023 ambulatory Donaldo Sparrow MD Facility:[facility] Start: 06-03-2023 End: 06-04-2023 ambulatory VLADISLAVC LIZ HERNANDEZ [facility] Start: 06-03-2023 End: 06-03-2023 Patient encounter procedure LIZ HERNANDEZ [facility] Start: 01-06-2023 End: 01-07-2023 ambulatory Donaldo Sparrow MD Facility: [facility] Start: 12-05-2022 End: 12-06-[address] FELISA BERRIOS . Facility:[facility] Start: 12-03-2022 End: 12-04-[address] FELISA BERRIOS . Facility:[facility] Start: 11-29-2022 End: 11-30-2022 ambulatory NARENDRANATH LAKSHMIPATHY . Facility:[facility] Start: 11-12-2022 End: 11-13-[address] FELISA BERRIOS . Facility:[facility] Start: 11-05-2022 End: 11-06-[address] FELISA BERRIOS . Facility:[facility] Start: 10-28-2022 End: 10-29-[address] FELISA BERRIOS . Facility:[facility] Start: 10-23-2022 ambulatory FELISA BERRIOS [facility] Start: 10-21-2022 End: 10-21-[address] FELISA BERRIOS . Facility:[facility] Start: 10-18-2022 Encounter for preprocedural cardiovascular examination TONIO PLATAANURAG [facility] Start: 10-18-2022 Encounter for preprocedural laboratory examination TONIO Latham [facility] Start: 10-16-[address] FELISA BERRIOS . [...] . Facility:[facility] Start: 09-06-2022 ambulatory FELISA BERRIOS Facility:[facility] Start: 08-26-2022 End: 08-27-[address] FELISA BERRIOS . Facility:[facility] Start: 08-06-2022 End: 08-07-2022 ambulatory TONIO BELL Facility:[facility] Start: 07-31-2022 End: 07-31-2022 ambulatory [facility] Start: 07-31-2022 End: 08-01-[address] NATHALY [...] 05-23-2022 End: 05-23-2022 ambulatory Alejandra Cain Other [facility] Other Start: 05-23-2022 Office outpatient vi sit 15 minutes Alejandra Cain [facility] Start: 05-03-2022 End: 05-04-[address] [...] End: 01-08-[address] FELISA BERRIOS . Facility: Start: 08-07-2021 End: 08-07-2021 ambulatory Alejandra Cain Other [facility] [employer] Other Start: 08-07-2021 Office outpatient vi sit 15 minutes Alejandra Cain [facility] Start: 04-12-2021 Office outpatient vi sit 15 minutes Racheal Daniels [facility] Gastroenterology Procedures Date Procedure Procedure Detail Performing Clinician Start: 05-03-[address] RACHEAL GRAVES Comment on above: Performed By: #### P SAD #### [facility] [address] [place] [address] Dr. Juliet García Start: 12-07-2020 CT guided biopsy NOLAFELTON SIMONS DAVID Comment on above: LIVER. NO SEDATION. Arthroscopy of knee LIZ HERNANDEZ Bilateral cataracts (disorder) LIZ HERNANDEZ H/O: vasectomy LIZ De Jesus [employer] (substance) JOSE R DAVID Comment on above: Toe Tonsillectomy LIZ HERNANDEZ Immunizations Immunization Date Immunization Notes Care Provider Michelle thomas 04-20-2023 SARS-CoV-2 mRNA (tozinameran 5y-11y) vaccine LIZ HERNANDEZ [facility] Comment on above: Result Comment: covi d 19 mRNA ([facility]) 04-17-2022 influenza virus vacc ine, unspecified formulation LIZ HERNANDEZ [facility] 03-23-2022 SARS-CoV-2 (COVID-19 ) mRNAMUL.ORD![id number] LIZ HERNANDEZ [facility] 10-23-2021 SARS-CoV-2 mRNA (nzhykcrxuat-yjdt-mmbvsa e) vaccine LIZ HERNANDEZ [facility] 05-27-2021 pneumococcal polysaccharide vaccine, 23 valent LIZ HERNANDEZ [facility] 05-06-2021 SARS-CoV-2 (COVID-19 ) mRNA BNT-162d9 vax LIZ HERNANDEZ [facility] Comment on above: Result Comment: 2021: [id number] 04-07-2021 influenza virus vacc ine, unspecified formulation LIZ HERNANDEZ [facility] 09-18-2020 SARS-CoV-2 (COVID-19 ) mRNA BNT-162f4 vax LIZ HERNANDEZ [facility] 04-19-2020 influenza virus vacc ine, unspecified formulation LIZ DAVID [facility] 04-15-2020 influenza virus vacc ine, unspecified formulation LIZ DAVID [facility] 04-20-2018 influenza virus vacc ine, unspecified formulation LIZ DAVID [facility] 03-24-2018 influenza virus vacc ine, unspecified formulation LIZ DAVID [facility] 05-01-2013 influenza virus vacc ine, unspecified formulation LIZ DAVID [facility] Payers Date Payer Category Payer Medicare 2022 Unknown [id number] 2022 Unknown 2021 Medicare [id number] 2019 Unknown [id number] 2. [id number] 1959 Medicare [id number] 1956 Unknown [id number] 2.16.84 0.1.254112.3.579.2.593 1956 Unknown [id number] 2.16.84 0.1.375817.3.579.2.593 1956 Unknown [id number] 2.16.84 0.1.032892.3.579.2.593 1956 Unknown [id number] .16.84 0.1.960785.3.579.2.593 1956 Unknown [id number] 2.16.84 0.1.898141.3.579.2.593 1956 Unknown [id number] 2.16.84 0.1.844272.3.579.2.593 1956 Unknown [id number] 2.16.84 0.1.254301.3.579.2.593 1956 Unknown [id number] 2.16.84 0.1.185070.3.579.2.593 1956 Unknown [id number] 2.16.84 0.1.655323.3.579.2.593 1956 Unknown [id number] 2.16.84 0.1.870461.3.579.2.593 1956 Unknown [id number] 2.16.84 0.1.507796.3.579.2.593 1956 Unknown [id number] 2.16.84 0.1.489109.3.579.2.593 1956 Unknown [id number] 2.16.84 0.1.558170.3.579.2.593 1956 Unknown [id number] 2.16.84 0.1.812523.3.579.2.593 1956 Unknown [id number] 2.16.84 0.1.741224.3.579.2.593 1956 Unknown [id number] 2.16.84 0.1.550150.3.579.2.593 1956 Unknown [id number] 2.16.84 0.1.181019.3.579.2.593 1956 Unknown [id number] 2.16.84 0.1.794694.3.579.2.593 1956 Unknown [id number] 2.16.84 0.1.139168.3.579.2.593 1956 Unknown [id number] 2.16.84 0.1.991483.3.579.2.593 1956 Unknown [id number] 2.16.84 0.1.047024.3.579.2.593 1956 Unknown [id number] 2.16.84 0.1.521732.3.579.2.593 1956 Unknown [id number] 2.16.84 0.1.028976.3.579.2.593 1956 Unknown [id number] 2.16.84 0.1.124472.3.579.2.593 1956 Unknown [id number] 2.16.84 0.1.129978.3.579.2.593 1956 Unknown [id number] 2.16.84 0.1.857007.3.579.2.593 1956 Unknown [id number] 2.16.84 0.1.291740.3.579.2.593 1956 Unknown [id number] 2.16.84 0.1.236008.3.579.2.593 1956 Unknown [id number] 2.16.84 0.1.318429.3.579.2.593 1956 Unknown [id number] 2.16.84 0.1.508637.3.579.2.593 1956 Unknown [id number] 2.16.84 0.1.600428.3.579.2.593 1956 Unknown [id number] 2.16.84 0.1.155822.3.579.2.593 1956 Unknown [id number] 2.16.84 0.1.163624.3.579.2.593 1956 Unknown [id number] 2.16.84 0.1.129904.3.579.2.593 1956 Unknown [id number] 2.16.84 0.1.257071.3.579.2.593 1956 Unknown [id number] 2.16.84 0.1.585162.3.579.2.593 1956 Unknown [id number] 2.16.84 0.1.147165.3.579.2.593 1956 Unknown [id number] 2.16.84 0.1.568822.3.579.2.593 1956 Unknown [id number] 2.16.84 0.1.154201.3.579.2.593 1956 Unknown [id number] 2.16.84 0.1.361500.3.579.2.593 1956 Unknown [id number] 2.16.8 40.1.254693.3.579.2.727 1956 Unknown [id number] 2.16.8 40.1.484680.3.579.2.727 1956 Unknown [id number] 2.16.8 40.1.669772.3.579.2.727 1956 Unknown [id number] 2.16.8 40.1.983950.3.579.2.727 1956 Unknown [id number] 2.16. 840.1.769177.3.579.2.196 1956 Unknown [id number] 2.16. 840.1.579142.3.579.2.196 1956 Unknown [id number] 2.16. 840.1.517297.3.579.2.196 1956 Unknown [id number] 2.16.84 0.1.093365.3.579.2.1259 Social History Date Type Detail Facility Sex Assigned At [facility] Start: 06-03-2023 Tobacco smoking status Never s moked tobacco (finding) [facility] Tobacco smoking status Never [facility] Functional Status Date Assessment Result Facility 06-03-2023 Functional Status N/A [facility] Clinical Notes 04-12-2021 to 06-03-2023 [...] treatment? Where to find more information [employer]: www.cancer.org [employer]: www.auanet.org Contact a health care [...] provider. Document Revised: 12/24/2021 Document Reviewed: 12/24/2021 [employer] Patient Education 2022 [employer]. Follow Up Care 05/29/2022 11:47:27 With:LIZ HERNANDEZ PA-C, URL Address: [address] [place] [address] [phone] When: Unknown Comments:6 mos w/ PSA [facility] 12-03-2022 Note PROCEDURE: XR FOOT [...] by: ELIN KENNY Date: 2022-12-03 09:57 [facility] 11-12-2022 Note PROCEDURE: XR FOOT L [...] by: ZAFAR FERRER Date: 2022-11-12 13:59 [facility] 10-22-2022 Note PROCEDURE: XR FOOT [...] by: ELIN KENNY Date: 2022-10-22 07:48 [facility] 10-22-2022 Note PROCEDURE: XR FOOT L T 2V HISTORY: Pain COMPARISON: XR foot left 10/21/2022 FINDINGS: BONES:Multiple intraoperative spot fluoroscopic images demonstrate mechanical fusion of the first metatarsophalangeal joint and resection of head of first proximal phalanx. IMPRESSION: 1. Surgical changes of left first toe as detailed above. Electronically authenticated by: ELIN KENNY Date: 2022-10-22 07:46 [facility] 07-31-2022 Note Currently stable [facility] 07-31-2022 Note Hypertension is well controlled 114/64 Continue lisinopril 5 mg Recent CR elevated 1.59- his cr typically has been 1.2-1.4 - He has been on antibiotics for Lt foot infection- DFU with wound care. [facility] 07-31-2022 Note Lipid abnormalities are currently well controlled with lipitor 20 mg- LDL currently 58.6 on labs 07/26/2022 Liver function 04/2022 were normal [facility] 07-31-2022 Note UTP CARDIOLOGY PROGR ESS [...] RTC 1 year or earlier if needed [facility] 07-31-2022 Note Patient here for 6 [...] All other systems reviewed and are negative. [facility] 07-31-2022 Note CONSULTATION PROCEDURE DATE: 07/31/2022 [...] the clinic in three months' time. [facility] 07-25-2022 Note CONSULTATION CONSULTATION DATE: 07/25/2022 HISTORY OF PRESENT ILLNESS: This is a 66-year-old gentleman who presents to the Pain Clinic today with increased lower back pain. The patient does have chronic bilateral knee pain, but he states those are doing quite well. He did receive a left knee steroid injection in April. The patient just recently returned from a [place] vacation, where he visited multiple [employer] mayes and had a lot of increased [...] and will be contacted upon approval. [facility] 07-24-2022 Note PROCEDURE: XR FOOT L [...] by: ELIN KENNY Date: 2022-07-24 10:21 [facility] 06-10-2022 Note PROCEDURE: XR KNEE L T 4V or > HISTORY: Pain in left knee ; chronic left knee pain COMPARISON: XR knee bilateral 05/31/2021 FINDINGS: BONES:Marked narrowing of the medial joint space with suspected qyux-ny-bjqv articulation. Moderate-marked narrowing of the lateral compartment. Mild narrowing of anterior compartment. Small periarticular osteophytes involving the margins of all 3 compartments. No fracture or dislocation. SOFT TISSUES:No visible soft tissue swelling. EFFUSION:Small joint effusion. OTHER: Negative. IMPRESSION: 1. Marked degenerative joint disease. Stable to minimally progressed. Electronically authenticated by: ELIN KENNY Date: 2022-06-10 19:35 [facility] 05-23-2022 Evaluation note Encounter Date Diagnosis [...] Pain in left knee (ICD-10 - M25.562) [facility] Other 10-11-2022 NoteCONSULTATION CONSULTATION DATE: 04/23/2022 CHIEF [...] the time being. CC: Felisa Berrios M.D.[facility] [id number] NoteCONSULTATION CONSULTATION DATE: 04/04/2022 HISTORY OF PRESENT [...] indicated. Patient agreed with plan of care.[id number] Note CONSULTATION CONSULTATION DATE: 02/14/2022 HISTORY OF [...] time unless otherwise indicated. Patient acknowledges understanding.[facility] [id number] NoteCONSULTATION PROCEDURE DATE: 02/14/2022 PREOPERATIVE DIAGNOSIS: Bilateral [...] will be followed up in the office.[facility] [id number] Evaluation note* Encounter Date Diagnosis Assessment Notes [...] Pain in left knee (ICD-10 - M25.562) [facility] Other 09-30-2021 Evaluation note* Encounter Date Diagnosis Assessment Notes Treatment Notes Treatment Clinical Notes Mar, Liver hemangioma (ICD-10 - D18.03) Mar, HODGES (nonalcoholic steatohepatitis) (ICD-10 - K75.81) [facility] Other Evaluation + Plan note Future Appointments Appointment Date:11/04/2023 08:30:00 AM Scheduled Provider:LIZ HERNANDEZ PA-C Location:[facility] Appointment Type:URO Office Visit Diagnostic Tests Pending * PSA Total 06/03/23 [facility] History general Narrative - Reported* Type Description Date Medical History DM II Medical History HTN Medical History hyperlipidemia Medical History gout Surgical History knee surgery Surgical History tonsillectomy Surgical History vasectomy Surgical History sinus surgery Surgical History back injections Hospitalization History SEE ABOVE SURGICAL HX [facility] Other Hospital course Narrative No data available for this section [facility] progress note No data available for this section [facility] Summary Purpose Family History No [...] section and content) DATE CREATED AUTHOR 03/29/2021 [facility] DATE CREATED AUTHOR AUTHOR'S ORGANIZ ATION 08/06/2022 [facility] DATE CREATED AUTHOR AUTHOR'S ORGANIZ ATION 12/20/2022 [facility] DATE CREATED AUTHOR AUTHOR'S ORGANIZ ATION 07/01/2023 [facility] DATE CREATED AUTHOR AUTHOR'S ORGANIZ ATION 07/05/2023 [facility] DATE CREATED AUTHOR AUTHOR'S ORGANIZ ATION 07/24/2023 [facility] EPIC REASON FOR VISIT (unrecogniz ed section and content) PT HERE FOR 4 WEEK FOLLOW UP LIVER LESION LABS WERE ORDERED AT LAST OFFICE VISITBilateral Knee PainRecheck Bilateral Knees Patient Care team informatio n (unrecognized section and content) Personnel Name: FELISA BERRIOS MD Address: Address: [address] [place] [id number] FOR RECORDS PERTAINING TO PATIENTS WHO ARE [...] BE BASED ON THE PRIMARY CLINICAL RECORDS. [employer] [facility]. provides no warranty or guarantee of the accuracy or completeness of information in this document.
== END 2023-10-08 08:46 | disposition home or self-care (01) ==
LOC: EC 08:45
PROVIDERS: PCP Family Medicine; Visit Provider Podiatrist Foot & Ankle Surgery
DX: L97.521 Non-pressure chronic ulcer of other part of left foot limited to breakdown of skin (principal); Z98.890 Other specified postprocedural states
CPT/HCPCS: 73630

== ENCOUNTER 2023-10-09 16:00 | Outpatient (OUT) | payer BC, SELFPAY ==
[2023-10-09] MEDS: COVID VAC 23-24(12UP)MODERNA/PF 50 MCG/0.5 ML VIAL IM (16:15)
== END 2023-10-09 16:30 | disposition home or self-care (01) ==
LOC: VACCLI 10-15 12:59
PROVIDERS: PCP Family Medicine
DX: Z23 Encounter for immunization (principal)
CPT/HCPCS: 90480; 91322

== ENCOUNTER 2023-10-27 08:31 | Outpatient (OUT) | payer BC, SELFPAY ==
--- OUTSIDE RECORDS SUMMARY | 2023-10-27 08:56 | XMS_ITS | CCD ---
[facility] Organization [facility] [place] [facility] Team Providers Care Director Facilities Maintenance Name Role Phone Racheal Daniels Unavailable Ant [...] ., DR NATHALY Main Admitting Unavailable JAZMIN MCGREOGR Consulting Unavailable BOONE ., DR NATHALY Main [...] Primary Care Unavailable BOONE ., DR NATHALY aMin Attending Unavailable BERRIOS ., DR FELISA Juarez Primary Care Unavailable BOONE ., DR NATHALY Main Consulting Unavailable BOONE ., DR NATHALY Main Attending Unavailable BOONE ., DR NATHALY Main Admitting Unavailable MAHARAJ, THEE Consulting Unavailable BOONE ., DR NATHALY Main Admitting Unavailable BOONE ., DR NATHAYL Main Attending Unavailable BERRIOS ., DR FELISA [...] POPE Consulting Unavailable BERRIOS ., DR FELISA Juarez [...] DR FELISA Juarez Primary Care Unavailable [facility] [place] Attending Unavailable [facility] [place] Admitting Unavailable [facility] [place] Consulting Unavailable [facility], DR RACHEAL [...] sources) Acetaminophen / oxyCODONE Drug Allergy Unknown Thumb Other (1 source) Acetaminophen / oxyCODONE; Translations: [OXYCODONE-ACETAM INOPHEN] Drug Allergy [address] [facility] Repository (3 sources) oxyCODONE; Translations: [OXYCODONE] Drug Allergy 3 Hyperactive behavior (finding) [facility] Repository (1 source) Acetaminophen / oxyCODONE Drug Allergy [facility] Repository (1 source) oxyCODONE; Translations: [OxyCODONE Hydrochloride] Drug Allergy [facility] [place] Repository Medications Current Medications Medication Drug Class(es) [...] 20mg/24hrs, # 20 tab(s), Refills(s) 3, Pharmacy: [facility]/pharmacy #[id number], 188, cm, 06/03/23 10:01:00 EST, [...] needed, # 2 tab(s), Refills(s) 0, Pharmacy: [facility]/pharmacy #[id number], 185.4, cm, 12/05/20 11:15:00 EDT, [...] Resolved: 2 Chronic Other 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 00TIFF Normal [facility] [place] Lab Reportson 06-06-2023 Lab Reports [id number]#1.00 TIFF Normal [facility] [place] RAD - MISCon 06-04-2023 RAD - MISC [id number]#1.00 TIFF Normal [facility] [place] Screenson 06-04-2023 Screens [id number]#1. 00TIFF Normal [facility] [place] Patient Educationon 06-03-20 Patient Education Oncology Prostate [...] Where to find more information ? [employer] [place] [employer]: www.cancer.org ? [place] [employer]: www.auanet.org Contact a health care [...] adds flu (more content not included)... Normal [facility] [place] Urology Office/Clinic Noteon 06-03-2023 Urology Office/Clinic Note [...] When Contact Information LIZ HERNANDEZ PA-C, URL [address] [place] [address] [id number] Additional Instructions: 6 mos w/ PSA Patient [...] guided bi (more content not included)... Normal [facility] [place] Comment on above: Result Comment: Elec tronically Signed By: LIZ HERNADNEZ PA-C\.br\Date and Time Signed: 06/03/23 11:48 EST\.br\Electronically Co-Signed By: Maru Burr\Rustybr\Date and Time Co-Signed: 06/03/23 10:26 EST Immunization Recordson 04-23 Immunization Records [id number]#1. 00TIFF Normal [facility] [place] Consultation Noteon 04-15-20 Consultation Note [id number]#1.0 0CD:127 Normal [facility] [place] RAD - MISCon 12-24-2022 RAD - MISC [id number]#1.00 CD:127 Normal [facility] [place] XR LSPINE W_OBLS AND FLEX_EX Ton 12-05-2022 [...] by: RACHEAL GRAVES Date: 2022-12-05 09:46 Normal [facility] Consultation Noteon 12-05-19 23 Consultation Note [id number]#1.0 0CD:127 Normal [facility] [place] Operative Reporton Operative Report [id number]#1.0 0CD:127 Normal [facility] [place] CBC AUTO DIFFon 10-21-2022 BASO # 0.1 103/ul Normal 0.0-0.1 [facility] Comment on above: Performed By: #### P OCGLUC #### [facility] [address] [place] [address] Dr. Juliet García Basophils/100 WBC (Bld) 0.7 % Normal 0.2-2.0 [facility] Comment on above: Performed By: #### P OCGLUC #### [facility] [address] [place] [address] Dr. Juliet García EO # 0.4 103/ul Normal 0.0-0.7 [facility] Comment on above: Performed By: #### P OCGLUC #### [facility] [address] [place] [address] Dr. Juliet García Eosinophils/100 WBC (Bld) 5.3 % Normal 0.9-7.0 [facility] Comment on above: Performed By: #### P OCGLUC #### [facility] [address] [place] [address] Dr. Juliet García Erythrocyte distribution width (RBC) [Ratio] 14.0 % Normal 11.0-15.0 [facility] Comment on above: Performed By: #### P OCGLUC #### [facility] [address] [place] [address] Dr. Juliet García Hematocrit (Bld) [Volume fraction] 43.6 % Normal 42.0-54.0 [facility] Comment on above: Performed By: #### P OCGLUC #### [facility] [address] [place] [address] Dr. Juliet García Hemoglobin (Bld) [Mass/Vol] 14.9 g/dL Normal 14.0-18.0 [facility] Comment on above: Performed By: #### P OCGLUC #### [facility] [address] [place] [address] Dr. Juliet García IG # 0.03 10e3/ul Normal 0.00-0.03 [facility] Comment on above: Performed By: #### P OCGLUC #### [facility] [address] [place] [address] Dr. Juliet García IG % 0.4 % Normal 0.0-0.5 [facility] Comment on above: Performed By: #### P OCGLUC #### [facility] [address] [place] [address] Dr. Juliet García LYMPH # 2.0 103/ul Normal 1.2-3.8 [facility] Comment on above: Performed By: #### P OCGLUC #### [facility] [address] [place] [address] Dr. Juliet García Lymphocytes/100 WBC (Bld) 29.3 % Normal 20.5-60.0 [facility] Comment on above: Performed By: #### P OCGLUC #### [facility] [address] [address] [address] Juliet García MANUAL DIFF REQ NO Normal [facility] Comment on above: Performed By: #### P OCGLUC #### [facility] [address] [address] [address] Juliet García MCH (RBC) [Entitic mass] 33.4 pg Normal 25.9-34.0 [facility] Comment on above: Performed By: #### P OCGLUC #### [facility] [address] [address] [address] Juliet García MCHC (RBC) [Mass/Vol] 34.2 g/dL Normal 29.9-35.2 [facility] Comment on above: Performed By: #### P OCGLUC #### [facility] [address] [place] [address] Dr. Juliet García MCV (RBC) [Entitic vol] 97.8 fL Critically high 80.0-94.0 [facility] Comment on above: Performed By: #### P OCGLUC #### [facility] [address] [place] [address] Dr. Juliet García MONO # 0.7 103/ul Normal 0.3-0.8 [facility] Comment on above: Performed By: #### P OCGLUC #### [facility] [address] [address] [address] Juliet García Monocytes/100 WBC (Bld) 9.9 % Normal 1.7-12.0 [facility] Comment on above: Performed By: #### P OCGLUC #### [facility] [address] [place] [address] Dr. Juliet García NEUT # 3.7 103/ul Normal 1.4-6.5 [facility] Comment on above: Performed By: #### P OCGLUC #### [facility] [address] [address] [address] Juliet García Neutrophils/100 WBC (Bld) 54.4 % Normal 43.0-75.0 [facility] Comment on above: Performed By: #### P OCGLUC #### [facility] [address] [address] [address] Juliet García Platelet mean volume (Bld) [Entitic vol] 9.0 fL Critically low 9.5-13.5 [facility] Comment on above: Performed By: #### P OCGLUC #### [facility] [address] [address] [address] Juliet García PLT 211 103/ul Normal 150-450 [facility] Comment on above: Performed By: #### P OCGLUC #### [facility] [address] [address] [address] Juliet García RBC 4.46 106/ul Critically low 4.70-6.10 [facility] Comment on above: Performed By: #### P OCGLUC #### [facility] [address] [address] [address] Juliet García WBC 6.8 103/ul Normal 4.0-11.0 [facility] Comment on above: Performed By: #### P OCGLUC #### [facility] [address] [address] [address] Juliet García POINT OF CARE GLUCOSEon 10-12 Glucose [Mass/Vol] 100 mg/dL Normal 74-106 [facility] Comment on above: Performed By: #### P OCGLUC #### [facility] [address] [address] [address] Juliet García Glucose [Mass/Vol] 94 mg/dL Normal 74-106 [facility] Comment on above: Performed By: #### A 1C #### [facility] [address] [address] [address] Juliet García Lab Reportson 10-14-2022 Lab Reports [id number]#1.0 0CD:127 Normal [facility] [place] Outside Hospital Correspo ndenceon 10-14-[address] [facility] Correspondence [id number]#1.0 0CD:127 Normal [facility] [place] PROF CHEM 8 (BAS METB)on Anion gap [Moles/Vol] 14.0 mmol/L Normal [facility] Comment on above: Performed By: #### B MP #### [facility] [address] [address] [address] Juliet García Calcium [Mass/Vol] 9.0 mg/dL Normal 8.5-10.1 [facility] Comment on above: Performed By: #### B MP #### [facility] [address] [address] [address] Juliet García Chloride [Moles/Vol] 107 mmol/L Normal 98-107 [facility] Comment on above: Performed By: #### B MP #### [facility] [address] [place] [address] Dr. Juliet García CO2 [Moles/Vol] 28.7 mmol/L Normal 21.0-32.0 [facility] Comment on above: Performed By: #### B MP #### [facility] [address] [address] [address] Juliet García Creatinine [Mass/Vol] 1.41 mg/dL Critically high 0.70-1.30 [facility] Comment on above: Performed By: #### B MP #### [facility] [address] [place] [address] Dr. Juliet García EGFR-AF CANADIAN >60 Normal >=60 [facility] Comment on above: Performed By: #### B MP #### [facility] [address] [address] [address] Juliet García EGFR-NON AF CANADIAN 50 mL/min/1.73m2 Critically low >=60 [facility] Comment on above: Performed By: #### B MP #### [facility] [address] [address] [address] Juliet García Glucose [Mass/Vol] 95 mg/dL Normal 74-106 [facility] Comment on above: Performed By: #### B MP #### [facility] [address] [address] [address] Juliet García Potassium [Moles/Vol] 4.7 mmol/L Normal 3.5-5.1 [facility] Comment on above: Performed By: #### B MP #### [facility] [address] [place], [place] [address] Dr. Juliet García Sodium [Moles/Vol] 145 mmol/L Normal 136-145 [facility] Comment on above: Performed By: #### B MP #### [facility] [address] [place], [place] [address] Dr. Juliet García Urea nitrogen [Mass/Vol] 25.0 mg/dL Critically high 7.0-18.0 [facility] Comment on above: Performed By: #### B MP #### [facility] [address] [place], [place] [address] Dr. Juliet García Urea nitrogen/Creatinine [Mass ratio] 17.7 mg/mg Normal [facility] Comment on above: Performed By: #### B MP #### [facility] [address] [place], [place] [address] Dr. Juliet García Office Visiton 07-31-2022 Follow-up visit [id number] Carlos Locke 1955 M Date Provider Department Center 07/31/2022 BENTLEY MENDOZA SUSHANT [facility] Family History Problem Relation Age of Onset Stroke Father Family Status - Relation Status Age at Father Level of Service:71960 AL OFFICE/OUTPATIENT ESTABLISHED MOD MDM 30-39 MIN Reason for Visit and Comments: Hyperlipidemia [182] Hypertension [028987] history of PE [Other] Normal [facility] CULTURE WOUNDon 07-24-2022 CULTURE WOUND Culture Observations : No growth of anaerobes at 72 hours. Isolate 1 Stenotrophomonas maltophilia Moderate growth of ORGANISM 1 Stenotrophomonas maltophilia ANTIBIOTIC M.I.C RX STATUS Levofloxacin 1 S F Trimethoprim/Sulfameth oxazole <=20 S F Normal [facility] Comment on above: Performed By: #### W OUNDCX ####[facility] [address] [place], [place] [address]CeDr. Juliet García GLYCOHEMOGLOBIN A1Con 2022 ADA RECOMMENDATION SEE BELOW Normal [facility] Comment on above: Result Comment: ADA RECOMMENDED LIMIT 4.0 - 6.0 ADA THERAPEUTIC TARGET < 7.0 ACTION SUGGESTED > 7.0 Performed By: #### A 1C #### [facility] [address] [place], [place] [address] Dr. Juliet García Glucose [Mass/Vol] 111 mg/dL Normal [facility] Comment on above: Performed By: #### A 1C #### [facility] [address] [place], [place] [address] Dr. Juliet García HbA1c (Bld) [Mass fraction] 5.5 % Normal 4.5-6.2 [facility] Comment on above: Performed By: #### A 1C #### [facility] [address] [place], [place] [address] Dr. Juliet García ECHOCARDIO M/2D COMPLETEon 1 08-29-2021 ECHOCARDIO M/2D COMPLETE Patient: CARLOS LOCKE Exam Date: 06/28/2022 : 1955 Gender:M Ordering : DR LOLY BARNARD M.D. Admission #: [id number] Family : Order #: [id number] CLICK HERE TO VIEW EXAM ECHOCARDIOGRAM REPORT [...] M.D. on 07/04/2022 at 13:38 Normal [facility] URIC ACID SERUMon 06-10-2022 Urate [Mass/Vol] 6.9 mg/dL Normal 3.5-7.2 [facility] Comment on above: Performed By: #### A 1C #### [facility] [address] [place] [address] Dr. Juliet García XR KUB 1 VIEWon [...] RACHEAL GRAVES Date: 2022-05-28 07:31 Normal [facility] CBC AUTO DIFFon 05-03-2022 BASO # 0.1 103/ul Normal 0.0-0.1 [facility] Comment on above: Performed By: #### C BC #### [facility] [address] [place] [address] Dr. Juliet García Basophils/100 WBC (Bld) 0.9 % Normal 0.2-2.0 [facility] Comment on above: Performed By: #### C BC #### [facility] [address] [place] [address] Dr. Juliet García EO # 0.4 103/ul Normal 0.0-0.7 [facility] Comment on above: Performed By: #### C BC #### [facility] [address] [place] [address] Dr. Juliet García Eosinophils/100 WBC (Bld) 5.2 % Normal 0.9-7.0 [facility] Comment on above: Performed By: #### C BC #### [facility] [address] [address] [address] Juliet García Erythrocyte distribution width (RBC) [Ratio] 13.6 % Normal 11.0-15.0 [facility] Comment on above: Performed By: #### C BC #### [facility] [address] [place] [address] Dr. Juliet García Hematocrit (Bld) [Volume fraction] 40.5 % Critically low 42.0-54.0 [facility] Comment on above: Performed By: #### C BC #### [facility] [address] [address] [address] Juliet García Hemoglobin (Bld) [Mass/Vol] 13.7 g/dL Critically low 14.0-18.0 [facility] Comment on above: Performed By: #### C BC #### [facility] [address] [address] [address] Juliet García IG # 0.02 10e3/ul Normal 0.00-0.03 [facility] Comment on above: Performed By: #### C BC #### [facility] [address] [place] [address] Dr. Juliet García IG % 0.3 % Normal 0.0-0.5 [facility] Comment on above: Performed By: #### C BC #### [facility] [address] [place] [address] Dr. Juliet García LYMPH # 1.9 103/ul Normal 1.2-3.8 [facility] Comment on above: Performed By: #### C BC #### [facility] [address] [place] [address] Dr. Juliet García Lymphocytes/100 WBC (Bld) 27.7 % Normal 20.5-60.0 [facility] Comment on above: Performed By: #### C BC #### [facility] [address] [place] [address] Dr. Juliet García MANUAL DIFF REQ NO Normal [facility] Comment on above: Performed By: #### C BC #### [facility] [address] [place] [address] Dr. Juliet García MCH (RBC) [Entitic mass] 33.3 pg Normal 25.9-34.0 [facility] Comment on above: Performed By: #### C BC #### [facility] [address] [place] [address] Dr. Juliet García MCHC (RBC) [Mass/Vol] 33.8 g/dL Normal 29.9-35.2 [facility] Comment on above: Performed By: #### C BC #### [facility] [address] [address] [address] Juliet García MCV (RBC) [Entitic vol] 98.3 fL Critically high 80.0-94.0 [facility] Comment on above: Performed By: #### C BC #### [facility] [address] [address] [address] Juliet García MONO # 0.7 103/ul Normal 0.3-0.8 [facility] Comment on above: Performed By: #### C BC #### [facility] [address] [address] [address] Juliet García Monocytes/100 WBC (Bld) 9.9 % Normal 1.7-12.0 [facility] Comment on above: Performed By: #### C BC #### [facility] [address] [address] [address] Juliet García NEUT # 3.8 103/ul Normal 1.4-6.5 [facility] Comment on above: Performed By: #### C BC #### [facility] [address] [address] [address] Juliet García Neutrophils/100 WBC (Bld) 56.0 % Normal 43.0-75.0 [facility] Comment on above: Performed By: #### C BC #### [facility] [address] [address] [address] Juliet García Platelet mean volume (Bld) [Entitic vol] 9.0 fL Critically low 9.5-13.5 [facility] Comment on above: Performed By: #### C BC #### [facility] [address] [address] [address] Juliet García PLT 201 103/ul Normal 150-450 [facility] Comment on above: Performed By: #### C BC #### [facility] [address] [address] [address] Juliet García RBC 4.12 106/ul Critically low 4.70-6.10 [facility] Comment on above: Performed By: #### C BC #### [facility] [address] [address] [address] Juliet García WBC 6.7 103/ul Normal 4.0-11.0 [facility] Comment on above: Performed By: #### C BC #### [facility] [address] [address] [address] Juliet García GLYCOHEMOGLOBIN A1Con 2021 ADA RECOMMENDATION SEE BELOW Normal [facility] Comment on above: Result Comment: ADA RECOMMENDED LIMIT 4.0 - 6.0 ADA THERAPEUTIC TARGET < 7.0 ACTION SUGGESTED > 7.0 Performed By: #### A 1C #### [facility] [address] [address] [address] Juliet García Glucose [Mass/Vol] 108 mg/dL Normal [facility] Comment on above: Performed By: #### A 1C #### [facility] [address] [place] [address] Dr. Juliet García HbA1c (Bld) [Mass fraction] 5.4 % Normal 4.5-6.2 [facility] Comment on above: Performed By: #### A 1C #### [facility] [address] [place] [address] Dr. Juliet García LIPID PROFILEon 05-03-2022 CHOL-HDL RATIO NORM SEE BELOW Normal [facility] Comment on above: Result Comment: 3.3 - 4.4 LOW RISK 4.4 - 7.1 AVERAGE RISK 7.1 - 11.0 MODERATE RISK >11.0 HIGH RISK Performed By: #### L IPID, CMP #### [facility] [address] [place] [address] Dr. Juliet García Cholesterol [Mass/Vol] 154 mg/dL Normal <=200 [facility] Comment on above: Performed By: #### L IPID, CMP #### [facility] [address] [address] [address] Juliet García Cholesterol in HDL [Mass/Vol] 29 mg/dL Critically low 40-60 [facility] Comment on above: Performed By: #### L IPID, CMP #### [facility] [address] [address] [address] Juliet García Cholesterol in LDL [Mass/Vol] 64.2 mg/dL Normal [facility] Comment on above: Performed By: #### L IPID, CMP #### [facility] [address] [address] [address] Juliet García Cholesterol.total/Ch olesterol in HDL [Mass ratio] 5.3 {ratio} Normal [facility] Comment on above: Performed By: #### L IPID, CMP #### [facility] [address] [address] [address] Juliet García HDL NORMAL > or = 60 mg/dl - LO W CARDIOVASCULAR RISK <40 mg/dl - HIGH CARDIOVASCULAR RISK Normal [facility] Comment on above: Performed By: #### L IPID, CMP #### [facility] [address] [place] [address] Dr. Juliet García LDL CALC NORMAL SEE BELOW Normal [facility] Comment on above: Result Comment: <100 mg/dl OPTIMAL 100 - 129 mg/dl NEAR OR ABOVE OPTIMAL 130 - 159 mg/dl BORDERLINE HIGH 160 - 189 mg/dl HIGH >190 mg/dl VERY HIGH Performed By: #### L IPID, CMP #### [facility] [address] [place] [address] Dr. Juliet García Triglyceride [Mass/Vol] 304 mg/dL Critically high <=150 [facility] Comment on above: Performed By: #### L IPID, CMP #### [facility] [address] [place] [address] Dr. Juliet García VLDL CALC 60.8 mg/dL Normal [facility] Comment on above: Performed By: #### L IPID, CMP #### [facility] [address] [address] [address] Juliet García PROF 14(COMP METB)on 022 Albumin [Mass/Vol] 3.7 g/dL Normal 3.4-5.0 [facility] Comment on above: Performed By: #### L IPID, CMP #### [facility] [address] [place] [address] Dr. Juliet García Albumin/Globulin [Mass ratio] 1.1 {ratio} Normal [facility] Comment on above: Performed By: #### L IPID, CMP #### [facility] [address] [place] [address] Dr. Juliet García ALP [Catalytic activity/Vol] 87 U/L Normal 46-116 [facility] Comment on above: Performed By: #### L IPID, CMP #### [facility] [address] [place] [address] Dr. Juliet García ALT [Catalytic activity/Vol] 52 U/L Normal 16-63 [facility] Comment on above: Performed By: #### L IPID, CMP #### [facility] [address] [place] [address] Dr. Juliet García Anion gap [Moles/Vol] 11.5 mmol/L Normal [facility] Comment on above: Performed By: #### L IPID, CMP #### [facility] [address] [place] [address] Dr. Juliet García AST [Catalytic activity/Vol] 27 U/L Normal 15-37 [facility] Comment on above: Performed By: #### L IPID, CMP #### [facility] [address] [place] [address] Dr. Juliet García Bilirubin [Mass/Vol] 0.4 mg/dL Normal 0.2-1.0 [facility] Comment on above: Performed By: #### L IPID, CMP #### [facility] [address] [place] [address] Dr. Juliet García Calcium [Mass/Vol] 8.7 mg/dL Normal 8.5-10.1 [facility] Comment on above: Performed By: #### L IPID, CMP #### [facility] [address] [place] [address] Dr. Juliet García Chloride [Moles/Vol] 106 mmol/L Normal 98-107 [facility] Comment on above: Performed By: #### L IPID, CMP #### [facility] [address] [place] [address] Dr. Juliet García CO2 [Moles/Vol] 28.2 mmol/L Normal 21.0-32.0 [facility] Comment on above: Performed By: #### L IPID, CMP #### [facility] [address] [place] [address] Dr. Juliet García Creatinine [Mass/Vol] 1.21 mg/dL Normal 0.70-1.30 [facility] Comment on above: Performed By: #### L IPID, CMP #### [facility] [address] [address] [address] Juliet García EGFR-AF CANADIAN >60 Normal >=60 [facility] Comment on above: Performed By: #### L IPID, CMP #### [facility] [address] [place] [address] Dr. Juliet García EGFR-NON AF CANADIAN =60 Normal >=60 [facility] Comment on above: Performed By: #### L IPID, CMP #### [facility] [address] [place] [address] Dr. Juliet García Globulin (S) [Mass/Vol] 3.4 g/dL Normal [facility] Comment on above: Performed By: #### L IPID, CMP #### [facility] [address] [place] [address] Dr. Juliet García Glucose [Mass/Vol] 100 mg/dL Normal 74-106 [facility] Comment on above: Performed By: #### L IPID, CMP #### [facility] [address] [place] [address] Dr. Juliet García Potassium [Moles/Vol] 4.7 mmol/L Normal 3.5-5.1 [facility] Comment on above: Performed By: #### L IPID, CMP #### [facility] [address] [place] [address] Dr. Juliet García Protein [Mass/Vol] 7.1 g/dL Normal 6.4-8.2 [facility] Comment on above: Performed By: #### L IPID, CMP #### [facility] [address] [place] [address] Dr. Juliet García Sodium [Moles/Vol] 141 mmol/L Normal 136-145 [facility] Comment on above: Performed By: #### L IPID, CMP #### [facility] [address] [address] [address] Juliet García Urea nitrogen [Mass/Vol] 23.0 mg/dL Critically high 7.0-18.0 [facility] Comment on above: Performed By: #### L IPID, CMP #### [facility] [id number] Juliet García Urea nitrogen/Creatinine [Mass ratio] 19.0 mg/mg Normal [facility] Comment on above: Performed By: #### L IPID, CMP #### [facility] [address] [address] [address] Juliet García VC CONSULT FOLLOWUPon 2021 VC CONSULT FOLLOWUP Patient: CARLOS LOCKE Exam Date: 04/08/2022 : 1955 Gender:M Ordering : DR RACHEAL GRAVES M.D. Admission #: [id number] Family : Order #: [id number] CLICK HERE [...] Racheal Graves MD on 04/08/2022 at 11:30 [facility] VC EXT VENOUS RT LIMITEDon 0 04-08-2022 VC EXT VENOUS RT LIMITED Patient: CARLOS LOCKE Exam Date: 04/08/2022 : 1955 Gender:M Ordering : DR RACHEAL GRAVES M.D. Admission #: [id number] Family : Order #: [id number] CLICK HERE TO VIEW EXAM RADIOLOGY REPORT [...] Racheal Graves MD on 04/08/2022 at 11:31 [facility] VC INJ FOAM SCLERO W US MLTI on 04-03-2022 VC INJ FOAM SCLERO W US MLTI Patient: CARLOS LOCKE Exam Date: 04/03/2022 : 1955 Gender:M Ordering : DR RACHEAL GRAVES M.D. Admission #: [id number] Family : DR NATHALY BOONE . Order #: [id number] CLICK HERE TO VIEW EXAM RADIOLOGY REPORT [...] av (more content not included)... Normal [facility] VC CONSULT FOLLOWUPon 2021 VC CONSULT FOLLOWUP Patient: CARLOS LOCKERusty Exam Date: 03/25/2022 : 1955 Gender:M Ordering : DR RACHEAL GRAVES M.D. Admission #: [id number] Family : Order #: [id number] CLICK HERE TO VIEW EXAM RADIOLOGY REPORT [...] Elin Kenny M.D. on 03/25/2022 at 08:41 [facility] VC EXT VENOUS RT LIMITEDon 0 03-25-2022 VC EXT VENOUS RT LIMITED Patient: CARLOS LOCKE Exam Date: 03/25/2022 : 1955 Gender:M Ordering : DR RACHEAL GRAVES M.D. Admission #: [id number] Family : Order #: [id number] CLICK HERE TO VIEW EXAM RADIOLOGY REPORT [...] Kenny M.D. on 03/25/2022 at 08:39 Normal [facility] VC ENDOVENOUS ABL 1ST V RTon 03-19-2022 VC ENDOVENOUS ABL 1ST V RT Patient: CARLOS LOCKE Exam Date: 03/19/2022 : 1955 Gender:M Ordering : DR RACHEAL GRAVES M.D. Admission #: [id number] Family : Order #: [id number] CLICK HERE TO VIEW EXAM RADIOLOGY REPORT [...] Graves MD on 03/19/2022 at 08:58 Normal [facility] VC CONSULT FOLLOWUPon 2021 VC CONSULT FOLLOWUP Patient: CARLOS LOCKE Exam Date: 02/18/2022 : 1955 Gender:M Ordering : DR RACHEAL GRAVES M.D. Admission #: [id number] Family : Order #: [id number] CLICK HERE TO VIEW EXAM RADIOLOGY REPORT [...] Graves MD on 02/18/2022 at 09:45 Normal [facility] VC EXT VENOUS LT LIMITEDon 0 02-18-2022 VC EXT VENOUS LT LIMITED Patient: CARLOS LOCKE Exam Date: 02/18/2022 : 1955 Gender:M Ordering : DR RACHEAL GRAVES M.D. Admission #: [id number] Family : Order #: [id number] CLICK HERE TO VIEW EXAM RADIOLOGY REPORT [...] varicose veins remain off of SSV and hr systems analyst mid posterior calf. *Exam performed in accordance with [facility] practice guidelines- Peripheral venous ultrasound, October 07, 2009. CONCLUSION: Post ablation occlusion of left leg varicose veins Dictated by: Racheal Graves MD on 02/18/2022 at 09:32 Approved by: Racheal Graves MD on 02/18/2022 at 09:36 Normal [facility] VC INJ FOAM SCLERO W US MLTI on 02-13-2022 VC INJ FOAM SCLERO W US MLTI Patient: CARLOS LOCKE Exam Date: 02/13/2022 : 1955 Gender:M Ordering : DR RACHEAL GRAVES M.D. Admission #: [id number] Family : Order #: [id number] CLICK HERE TO VIEW EXAM RADIOLOGY REPORT [...] Kenny M.D. on 02/13/2022 at 10:15 Normal [facility] VC CONSULT FOLLOWUPon 2021 VC CONSULT FOLLOWUP Patient: CARLOS LOCKE Exam Date: 02/06/2022 : 1955 Gender:M Ordering : DR RACHEAL GRAVES M.D. Admission #: [id number] Family : Order #: [id number] CLICK HERE TO VIEW EXAM RADIOLOGY REPORT [...] Kenny M.D. on 02/06/2022 at 09:53 Normal [facility] VC EXT VENOUS LT LIMITEDon 0 02-06-2022 VC EXT VENOUS LT LIMITED Patient: CARLOS LOCKE Exam Date: 02/06/2022 : 1955 Gender:M Ordering : DR RACHEAL GRAVES M.D. Admission #: [id number] Family : Order #: [id number] CLICK HERE TO VIEW EXAM RADIOLOGY REPORT [...] Kenny M.D. on 02/06/2022 at 09:49 Normal [facility] GLYCOHEMOGLOBIN A1Con 2021 ADA RECOMMENDATION SEE BELOW Normal [facility] Comment on above: Result Comment: ADA RECOMMENDED LIMIT 4.0 - 6.0 ADA THERAPEUTIC TARGET < 7.0 ACTION SUGGESTED > 7.0 Performed By: #### A 1C #### [facility] [address] [address] [address] Juliet García Glucose [Mass/Vol] 108 mg/dL Normal [facility] Comment on above: Performed By: #### A 1C #### [facility] [address] [address] [address] Juliet García HbA1c (Bld) [Mass fraction] 5.4 % Normal 4.5-6.2 [facility] Comment on above: Performed By: #### A 1C #### [facility] [address] [address] [address] Juliet García PROF 14(COMP METB)on 022 Albumin [Mass/Vol] 4.0 g/dL Normal 3.4-5.0 [facility] Comment on above: Performed By: #### C MP ####[facility] [address] [address]Dr. Juliet García Albumin/Globulin [Mass ratio] 1.2 {ratio} Normal [facility] Comment on above: Performed By: #### C MP ####[facility] [address] [address]Dr. Juliet García ALP [Catalytic activity/Vol] 89 U/L Normal 46-116 [facility] Comment on above: Performed By: #### C MP ####[facility] [address] [address]Dr. Juliet García ALT [Catalytic activity/Vol] 81 U/L Critically high 16-63 [facility] Comment on above: Performed By: #### C MP ####[facility] [address] [address]Dr. Juliet García Anion gap [Moles/Vol] 13.6 mmol/L Normal [facility] Comment on above: Performed By: #### C MP ####[facility] [address] [place], [place] [address]Dr. Juliet García AST [Catalytic activity/Vol] 32 U/L Normal 15-37 [facility] Comment on above: Performed By: #### C MP ####[facility] [address] [place], [place] [address]Dr. Juliet García Bilirubin [Mass/Vol] 0.5 mg/dL Normal 0.2-1.0 [facility] Comment on above: Performed By: #### C MP ####[facility] [address] [address]Dr. Juliet García Calcium [Mass/Vol] 8.9 mg/dL Normal 8.5-10.1 [facility] Comment on above: Performed By: #### C MP ####[facility] [address] [address]Dr. Juliet García Chloride [Moles/Vol] 106 mmol/L Normal 98-107 [facility] Comment on above: Performed By: #### C MP ####[facility] [address] [address]Dr. Juliet García CO2 [Moles/Vol] 27.1 mmol/L Normal 21.0-32.0 [facility] Comment on above: Performed By: #### C MP ####[facility] [address] [address]Dr. Juliet García Creatinine [Mass/Vol] 1.46 mg/dL Critically high 0.70-1.30 [facility] Comment on above: Performed By: #### C MP ####[facility] [address] [address]Dr. Juliet García EGFR-AF CANADIAN 59 mL/min/1.73m2 Critically low >=60 [facility] Comment on above: Performed By: #### C MP ####[facility] [address] [address]Dr. Juliet García EGFR-NON AF CANADIAN 48 mL/min/1.73m2 Critically low >=60 [facility] Comment on above: Performed By: #### C MP ####[facility] [address] [address]Dr. Juliet García Globulin (S) [Mass/Vol] 3.4 g/dL Normal [facility] Comment on above: Performed By: #### C MP ####[facility] [address] [address]Dr. Juliet García Glucose [Mass/Vol] 93 mg/dL Normal 74-106 [facility] Comment on above: Performed By: #### C MP ####[facility] [address] [address]Dr. Juliet García Potassium [Moles/Vol] 4.7 mmol/L Normal 3.5-5.1 [facility] Comment on above: Performed By: #### C MP ####[facility] [address] [place], [place] [address]Zy. Juliet García Protein [Mass/Vol] 7.4 g/dL Normal 6.4-8.2 [facility] Comment on above: Performed By: #### C MP ####[facility] [address] [place], [place] [address]Gn. Juliet García Sodium [Moles/Vol] 142 mmol/L Normal 136-145 [facility] Comment on above: Performed By: #### C MP ####[facility] [address] [place], [place] [address]Ev. Juliet García Urea nitrogen [Mass/Vol] 25.0 mg/dL Critically high 7.0-18.0 [facility] Comment on above: Performed By: #### C MP ####[facility] [address] [address]Dr. Juliet García Urea nitrogen/Creatinine [Mass ratio] 17.1 mg/mg Normal [facility] Comment on above: Performed By: #### C MP ####[facility] [address] [place], [place] [address]Sn. Juliet García VC ENDOVENOUS ABL 1ST V LTon 01-30-2022 VC ENDOVENOUS ABL 1ST V LT Patient: CARLOS LOCKE Exam Date: 01/30/2022 : 1955 Gender:M Ordering : DR RACHEAL GRAVES M.D. Admission #: [id number] Family : Order #: [id number] CLICK HERE TO VIEW EXAM RADIOLOGY REPORT [...] M.D. on 01/30/2022 at 12:00 Normal [facility] POINT OF CARE GLUCOSEon 01-11 Glucose [Mass/Vol] 84 mg/dL Normal 74-106 [facility] Comment on above: Performed By: #### P OCGLUC #### [facility] [address] [address] [address] Juliet García VC COMP CONSULTATIONon 01-21 VC COMP CONSULTATION Patient: CARLOS LOCKE Exam Date: 01/21/2022 : 1955 Gender:M Ordering : DR RACHEAL GRAVES M.D. Admission #: [id number] Family : Order #: [id number] CLICK HERE TO VIEW EXAM RADIOLOGY REPORT [...] for years. The patient is retired from [employer] after working 42 years. The patient denies [...] any additional information, and this was performed [facility]. See separate history and physical for [...] incompetent branch saphenous tributary/varicose veins. Bilateral incompetent hr systems analyst veins. PHYSICAL EXAM: The right leg demonstrates [...] pulses were present bilaterally. IMPRESSION: 1. Bilateral jjee-av-fmqxosgr great saphenous vein and mild right small [...] MD on 01/21/2022 at 11:46 Normal [facility] VC VENOUS REFLUX MARIE LMTon 0 01-21-2022 VC VENOUS REFLUX MARIE LMT Patient: CARLOS LOCKERusty Exam Date: 01/21/2022 : 1955 Gender:M Ordering : DR RACHEAL GRAVES M.D. Admission #: [id number] Family : DR ANDERSEN EtelvinaRusty BOONE . Order #: [id number] CLICK HERE TO VIEW EXAM RADIOLOGY REPORT [...] Compressibility: Normal. Flow: Mild deep venous reflux. Database Marketing Manager: Post/prox calf 5.9mm, 0.7s reflux. Prox/med [...] Graves MD on 01/21/2022 at 10:40 Normal [facility] POINT OF CARE GLUCOSEon - Glucose [Mass/Vol] 87 mg/dL Normal 74-106 [facility] Comment on above: Performed By: #### P OCGLUC ####[facility] [address] [place], [place] [address]Yn. Juliet García SURGICAL PATHOLOGYon 021 SURGICAL PATHOLOGY Specimen #: [id number] Submitting Physician: JULIET GARCÍA M.D. FINAL DIAGNOSIS [place], [place]; [id number] (12/07/2020) Liver, mass , biopsy (A1, A2, [...] do not hesitate to contact us at [phone] with questions or if additional follow up information becomes available. This case was reviewed in conjunction with the GI pathology fellow, Apoorva Diallo MD. The following stains were performed at the [facility] in order to further characterize this [...] in-situ hybridization tests have been determined by [facility]'s [facility] [place] (RT-PLMI) in a manner consistent with CLIA requirements. One or more of these tests have not been cleared or approved by the FDA. [facility] is regulated under CLIA as qualified to perform high-complexity testing. These tests are used for clinical purposes. They should not be regarded as investigational or for research. Nicolasa Cheema M.D. (Electronic Signature) _ SPECIMEN SUBMITTED A: 12 slides [id number] CLINICAL DATA Mass Date of Report: 03/27/2021 Date of Procedure: 03/16/2021 Date of Receipt: 03/15/2021 Submitted by: JULIET GARCÍA M.D. Location: Diagnostic interpretation performed at [address] [address]. CLIA Number: [id number] Normal [facility] Comment on above: Performed By: #### S #### See report for performing lab information. Vital Signs Date Time Vital Sign Value Performing Clinician Facility 06-03-2023 09:59-0500 Blood Pressure Location LIZ HERNANDEZ [facility] 06-03-2023 09:59-0500 Diastolic blood pressure 74 mm[Hg] LIZ HERNAN[facility] 06-03-2023 09:59-0500 Heart rate 70 /min LIZ HERNANDE[facility] 06-03-2023 09:59-0500 Respiratory rate 16 /min LIZ HERNANDE[facility] 06-03-2023 09:59-0500 Systolic blood pressure 138 mm[Hg] LIZ HERNANDE[facility] 05-23-2022 09:45-0500 Body height 187.96 cm Alejandra Olexa Other [facility] Other 05-23-2022 09:45-0500 Body mass index (BMI) [Ratio] 40.57 kg/m2 Alejandra Olexa [facility] 05-23-2022 09:45-0500 Body weight 143.34 kg Alejandra Olexa [facility] 08-07-2021 14:15-0500 Body height 187.96 cm Alejandra Olexa [facility] 08-07-2021 14:15-0500 Body mass index (BMI) [Ratio] 40.64 kg/m2 Alejandra Olexa [facility] 08-07-2021 14:15-0500 Body weight 143.61 kg Alejandra Olexa Other [facility] 04-12-2021 10:30-0400 Body height 187.96 cm Racheal Daniels Other [facility] Other 04-12-2021 10:30-0400 Body mass index (BMI) [Ratio] 41.75 kg/m2 Racheal Daniels Other [facility] 04-12-2021 10:30-0400 Body weight 147.51 kg Racheal Daniels Other [facility] 04-12-2021 10:30-0400 Diastolic blood pressure 71 mm[Hg] Racheal Daniels [facility] 04-12-2021 10:30-0400 Systolic blood pressure 131 mm[Hg] Racheal Daniels Other [facility] Other Encounters Encounter Date Encounter Type Care Provider Facility Start: 11-04-2023 ambulatory MARZENA HERNANDEZ Facility:[facility] Start: 07-23-2023 End: 07-23-2023 ambulatory HARINDER GERMÁNHazel Not Available Start: 06-30-2023 End: 07-01-2023 ambulatory Donaldo Sparrow MD Facility:[facility] Start: 06-03-2023 End: 06-04-2023 ambulatory VLADISLAVC [facility] Start: 06-03-2023 End: 06-03-2023 Patient encounter procedure LIZ HERNANDEZ [facility] Start: 01-06-2023 End: 01-07-2023 ambulatory [...] Encounter for preprocedural cardiovascular examination TONIO PLATAANURAG [facility] Start: 10-18-2022 Encounter for preprocedural laboratory examination TONIO [facility] Start: 10-16-[address] FELISA BERRIOS [...] . Facility:[facility] Start: 09-06-2022 ambulatory FELISA BERRIOS Facility:[facility] Start: 08-26-2022 End: 08-27-[address] FELISA BERRIOS . Facility:[facility] Start: 08-06-2022 End: 08-07-2022 ambulatory TONIO BELL Facility:[facility] Start: 07-31-2022 End: 07-31-[address] [facility] Start: 07-31-2022 End: 08-01-[address] [...] 05-23-2022 End: 05-23-2022 ambulatory Alejandra Cain Other [facility] Other Start: 05-23-2022 Office outpatient vi sit 15 minutes Alejandra aCin [facility] Start: 05-03-2022 End: 05-04-[address] [...] 08-07-2021 End: 08-07-2021 ambulatory [facility] Start: 08-07-2021 Office outpatient vi sit 15 minutes Alejandra Cain [facility] Start: 04-12-2021 Office outpatient vi sit 15 minutes Racheal Daniels [facility] Gastroenterology Procedures Date Procedure Procedure Detail Performing Clinician Start: 05-03-[address] RACHEAL GRAVES Comment on above: Performed By: #### P SAD #### [facility] [address] [place] [address] Dr. Juliet García Start: 12-07-2020 CT guided biopsy NOLAFELTON SIMONS DAVID Comment on above: LIVER. NO SEDATION. Arthroscopy of knee LIZ HERNANDEZ Bilateral cataracts (disorder) LIZ HERNANDEZ H/O: vasectomy LIZ De Jesus [employer] (substance) JOSE R DAVID Comment on above: Toe Tonsillectomy LIZ HERNANDEZ Immunizations Immunization Date Immunization Notes Care Provider Michelle thomas 04-20-2023 SARS-CoV-2 mRNA (tozinameran 5y-11y) vaccine LIZ HERNANDEZ [facility] Comment on above: Result Comment: covi d 19 mRNA (cvs) 04-17-2022 influenza virus vacc ine, unspecified formulation LIZ HERNANDEZ [facility] 03-23-2022 SARS-CoV-2 (COVID-19 ) [id number] LIZ HERNANDEZ [facility] 10-23-2021 SARS-CoV-2 mRNA (zsjcvqultrh-whgp-vydohi e) vaccine LIZ HERNANDEZ [facility] 05-27-2021 pneumococcal polysaccharide vaccine, 23 valent LIZ HERNANDEZ [facility] 05-06-2021 SARS-CoV-2 (COVID-19 ) mRNA BNT-162c7 vax LIZ HERNANDEZ [facility] Comment on above: Result Comment: 2021: [id number] 04-07-2021 influenza virus vacc ine, unspecified formulation LIZ HERNANDEZ [facility] 09-18-2020 SARS-CoV-2 (COVID-19 ) mRNA BNT-162p5 vax LIZ HERNANDEZ [facility] 04-19-2020 influenza virus vacc ine, unspecified formulation LIZ DAVID [facility] [place] 04-15-2020 influenza virus vacc ine, unspecified formulation LIZ DAVID [facility] 04-20-2018 influenza virus vacc ine, unspecified formulation LIZ DAVID [facility] 03-24-2018 influenza virus vacc ine, unspecified formulation LIZ DAVID [facility] 05-01-2013 influenza virus vacc ine, unspecified formulation LIZ DAVID [facility] Payers Date Payer Category Payer Medicare 2022 Unknown [id number] 2022 Unknown 2021 Medicare [id number] 2019 Unknown [id number] 2. [id number] 1959 Medicare [id number] 1955 Unknown [id number] 2.16.84 0.1.429291.3.579.2.593 1955 Unknown [id number] 2.16.84 0.1.841232.3.579.2.593 1955 Unknown [id number] 2.16.84 0.1.152574.3.579.2.593 1956 Unknown [id number] .16.84 0.1.270313.3.579.2.593 1955 Unknown [id number] 2.16.84 0.1.339566.3.579.2.593 1955 Unknown [id number] 2.16.84 0.1.363305.3.579.2.593 1956 Unknown [id number] 2.16.84 0.1.307548.3.579.2.593 1955 Unknown [id number] 2.16.84 0.1.612996.3.579.2.593 1956 Unknown [id number] 2.16.84 0.1.067251.3.579.2.593 1956 Unknown [id number] 2.16.84 0.1.022089.3.579.2.593 1956 Unknown [id number] 2.16.84 0.1.414453.3.579.2.593 1956 Unknown [id number] 2.16.84 0.1.543382.3.579.2.593 1956 Unknown [id number] 2.16.84 0.1.541139.3.579.2.593 1956 Unknown [id number] 2.16.84 0.1.753879.3.579.2.593 1956 Unknown [id number] 2.16.84 0.1.881648.3.579.2.593 1956 Unknown [id number] 2.16.84 0.1.441060.3.579.2.593 1956 Unknown [id number] 2.16.84 0.1.258261.3.579.2.593 1956 Unknown [id number] 2.16.84 0.1.605346.3.579.2.593 1956 Unknown [id number] 2.16.84 0.1.712342.3.579.2.593 1956 Unknown [id number] 2.16.84 0.1.833071.3.579.2.593 1956 Unknown [id number] 2.16.84 0.1.846841.3.579.2.593 1956 Unknown [id number] 2.16.84 0.1.123924.3.579.2.593 1956 Unknown [id number] 2.16.84 0.1.138046.3.579.2.593 1956 Unknown [id number] 2.16.84 0.1.160913.3.579.2.593 1956 Unknown [id number] 2.16.84 0.1.756698.3.579.2.593 1956 Unknown [id number] 2.16.84 0.1.012714.3.579.2.593 1956 Unknown [id number] 2.16.84 0.1.050619.3.579.2.593 1956 Unknown [id number] 2.16.84 0.1.298606.3.579.2.593 1956 Unknown [id number] 2.16.84 0.1.447484.3.579.2.593 1956 Unknown [id number] 2.16.84 0.1.883897.3.579.2.593 1956 Unknown [id number] 2.16.84 0.1.786960.3.579.2.593 1956 Unknown [id number] 2.16.84 0.1.226670.3.579.2.593 1956 Unknown [id number] 2.16.84 0.1.735302.3.579.2.593 1956 Unknown [id number] 2.16.84 0.1.303581.3.579.2.593 1956 Unknown [id number] 2.16.84 0.1.185865.3.579.2.593 1956 Unknown [id number] 2.16.84 0.1.495034.3.579.2.593 1956 Unknown [id number] 2.16.84 0.1.068162.3.579.2.593 1956 Unknown [id number] 2.16.84 0.1.562554.3.579.2.593 1956 Unknown [id number] 2.16.84 0.1.382496.3.579.2.593 1956 Unknown [id number] 2.16.84 0.1.544731.3.579.2.593 1956 Unknown [id number] 2.16.8 40.1.638077.3.579.2.727 1956 Unknown [id number] 2.16.8 40.1.862557.3.579.2.727 1956 Unknown [id number] 2.16.8 40.1.776786.3.579.2.727 1956 Unknown [id number] 2.16.8 [id number] 1955 Unknown [id number] 2.16. [id number] 1955 Unknown [id number] 2.16. [id number] 1955 Unknown [id number] 2.16. [id number] 1955 Unknown [id number] 2.16.84 [id number] Social History Date Type Detail Facility Sex Assigned At [facility] Start: 06-03-2023 Tobacco smoking status Never s moked tobacco (finding) [facility] Tobacco smoking status Never [facility] Functional Status Date Assessment Result Facility 06-03-2023 Functional Status N/A [facility] Clinical Notes 04-12-2021 to 06-03-2023 [...] treatment? Where to find more information [employer]: www.cancer.org [employer]: www.auanet.org Contact a health care [...] provider. Document Revised: 12/24/2021 Document Reviewed: 12/24/2021 [employer] Patient Education 2022 [employer]. Follow Up Care 05/29/2022 11:47:27 With:LIZ HERNANDEZ PA-C, URL Address: [address] [place] [address] [phone] When: Unknown Comments:6 mos w/ PSA [facility] 12-03-2022 Note PROCEDURE: XR FOOT [...] by: ELIN KENNY Date: 2022-12-03 09:57 [facility] 11-12-2022 Note PROCEDURE: XR FOOT L [...] by: ZAFAR FERRER Date: 2022-11-12 13:59 [facility] 10-22-2022 Note PROCEDURE: XR FOOT L [...] by: ELIN KENNY Date: 2022-10-22 07:48 [facility] 10-22-2022 Note PROCEDURE: XR FOOT L T 2V HISTORY: Pain COMPARISON: XR foot left 10/21/2022 FINDINGS: BONES:Multiple intraoperative spot fluoroscopic images demonstrate mechanical fusion of the first metatarsophalangeal joint and resection of head of first proximal phalanx. IMPRESSION: 1. Surgical changes of left first toe as detailed above. Electronically authenticated by: ELIN KENNY Date: 2022-10-22 07:46 [facility] 07-31-2022 Note Currently stable [facility] 07-31-2022 Note Hypertension is well controlled 114/64 Continue lisinopril 5 mg Recent CR elevated 1.59- his cr typically has been 1.2-1.4 - He has been on antibiotics for Lt foot infection- DFU with wound care. [facility] 07-31-2022 Note Lipid abnormalities are currently well controlled with lipitor 20 mg- LDL currently 58.6 on labs 07/26/2022 Liver function 04/[address] [facility] 07-31-2022 Note UTP CARDIOLOGY PROGR ESS [...] RTC 1 year or earlier if needed [facility] 07-31-2022 Note Patient here for 6 [...] All other systems reviewed and are negative. [facility] 07-31-2022 Note CONSULTATION PROCEDURE DATE: 07/31/2022 [...] the clinic in three months' time. [facility] 07-25-2022 Note CONSULTATION CONSULTATION DATE: 07/25/2022 [...] a [place] vacation, where he visited multiple [employer] may[place] and had a lot of increased [...] and will be contacted upon approval. [facility] 07-24-2022 Note PROCEDURE: XR FOOT L [...] by: ELIN KENNY Date: 2022-07-24 10:21 [facility] 06-10-2022 Note PROCEDURE: XR KNEE L T 4V or > HISTORY: Pain in left knee ; chronic left knee pain COMPARISON: XR knee bilateral 05/31/2021 FINDINGS: BONES:Marked narrowing of the medial joint space with suspected spci-so-cyqo articulation. Moderate-marked narrowing of the lateral compartment. Mild narrowing of anterior compartment. Small periarticular osteophytes involving the margins of all 3 compartments. No fracture or dislocation. SOFT TISSUES:No visible soft tissue swelling. EFFUSION:Small joint effusion. OTHER: Negative. IMPRESSION: 1. Marked degenerative joint disease. Stable to minimally progressed. Electronically authenticated by: ELIN KENNY Date: 2022-06-10 19:35 [facility] 05-23-2022 Evaluation note Encounter Date Diagnosis [...] Pain in left knee (ICD-10 - M25.562) Thumb Other 10-11-2022 NoteCONSULTATION CONSULTATION DATE: 04/23/2022 CHIEF [...] the time being. CC: Felisa Berrios M.D.[facility] [id number] NoteCONSULTATION CONSULTATION DATE: 04/04/2022 HISTORY OF PRESENT [...] indicated. Patient agreed with plan of care.[facility] [id number] Note CONSULTATION CONSULTATION DATE: 02/14/2022 HISTORY OF [...] time unless otherwise indicated. Patient acknowledges understanding.[facility] [id number] NoteCONSULTATION PROCEDURE DATE: 02/14/2022 PREOPERATIVE DIAGNOSIS: Bilateral [...] will be followed up in the office.[facility] [id number] Evaluation note* Encounter Date Diagnosis Assessment Notes [...] Pain in left knee (ICD-10 - M25.562) Thumb Other 09-30-2021 Evaluation note* Encounter Date Diagnosis Assessment Notes Treatment Notes Treatment Clinical Notes Mar, Liver hemangioma (ICD-10 - D18.03) Mar, HODGES (nonalcoholic steatohepatitis) (ICD-10 - K75.81) Thumb Other Evaluation + Plan note Future Appointments Appointment Date:11/04/2023 08:30:00 AM Scheduled Provider:LZI HERNANDEZ PA-C Location:[facility] Appointment Type:URO Office Visit Diagnostic Tests Pending * PSA Total 06/03/23 [facility] History general Narrative - Reported* Type Description Date Medical History DM II Medical History HTN Medical History hyperlipidemia Medical History gout Surgical History knee surgery Surgical History tonsillectomy Surgical History vasectomy Surgical History sinus surgery Surgical History back injections Hospitalization History SEE ABOVE SURGICAL HX Thumb Other Hospital course Narrative No data available for this section [facility] progress note No data available for this section [facility] Summary Purpose Family History No [...] section and content) DATE CREATED AUTHOR 03/29/2021 [facility] DATE CREATED AUTHOR AUTHOR'S ORGANIZ ATION 08/06/2022 [facility] DATE CREATED AUTHOR AUTHOR'S ORGANIZ ATION 12/20/2022 [facility] DATE CREATED AUTHOR AUTHOR'S ORGANIZ ATION 07/01/2023 [facility] DATE CREATED AUTHOR AUTHOR'S ORGANIZ ATION 07/05/2023 [facility] DATE CREATED AUTHOR AUTHOR'S ORGANIZ ATION 07/24/2023 [facility] EPIC REASON FOR VISIT (unrecogniz ed section and content) PT HERE FOR 4 WEEK FOLLOW UP LIVER LESION LABS WERE ORDERED AT LAST OFFICE VISITBilateral Knee PainRecheck Bilateral Knees Patient Care team informatio n (unrecognized section and content) Personnel Name: FELISA BERRIOS MD Address: Address: [address] [place] [phone] FOR RECORDS PERTAINING TO PATIENTS WHO ARE [...] BE BASED ON THE PRIMARY CLINICAL RECORDS. [employer] [facility]. provides no warranty or guarantee of the accuracy or completeness of information in this document.
== END 2023-10-27 08:32 | disposition home or self-care (01) ==
PROVIDERS: PCP Family Medicine; Visit Provider Physician Assistant
DX: Z12.5 Encounter for screening for malignant neoplasm of prostate (principal); Z80.42 Family history of malignant neoplasm of prostate
CPT/HCPCS: 36415; 84153

== ENCOUNTER 2023-10-30 09:14 | Outpatient (OUT) | payer BC, SELFPAY ==
--- OUTSIDE RECORDS SUMMARY | 2023-10-30 09:34 | XMS_ITS | CCD ---
Author Organization [facility] Team Providers Care Body Finisher Name Role Phone Racheal Daniels Unavailable Ant [...] II, ALEJANDRA Consulting Unavailable TYLERYURI Consulting Unavailable KOTOINO POPE Consulting Unavailable BERRIOS ., DR FELISA [...] Admitting Unavailable HIGHLANDER, PETER D Attending Unavailable EMIEL DAVIDSON Consulting Unavailable BERRIOS ., DR FELISA [...] NATHALY Main Admitting Unavailable JOHNSON .RODRIGO Unavailable [place], DR RACHEAL Ayala Consulting Unavailable BERRIOS ., DR FELISA Juarez Primary Care Unavailable [facility] [place] [place], DR STEWART Attending Unavailable [facility] [place] [place], DR STEWART Admitting Unavailable [facility] [place] [place], DR STEWART Consulting Unavailable [place], DR RACHEAL Ayala Admitting Unavailable [place], DR RACHEAL Ayala Consulting Unavailable WEST, DR RACHEAL Ayala Attending Unavailable BERRIOS ., DR FELISA Juarez [facility] ELIN Oliva Consulting Unavailable RUBEN ., DR FELISA Juarez Primary Care Unavailable [place], DR RACHEAL Ayala Admitting Unavailable WEST, DR RACHEAL Ayaal Consulting Unavailable WEST, DR RACHEAL Ayala Attending Unavailable KATINAE[place]ON[place], DR ELIN Oliva Consulting Unavailable WEST, DR RACHEAL Ayala Admitting Unavailable [place], DR RACHEAL Ayala Consulting Unavailable BERRIOS ., DR FELISA Juarez Primary Care Unavailable [place], DR RACHEAL Ayala Attending Unavailable FELISA BERRIOS Primary Care Physician [phone] Kyara MCGUIRE, Donaldo Cunningham Attending Unavailable Kyara MCGUIRE, Donaldo Cunningham Attending Unavailable Kyara MCGUIRE, Donaldo Cunningham Attending Unavailable HARINDER RUGGIERO Attending Unavailable LIZ HERNANDEZ Attending Unavailable LIZ HERNANDEZ Attending Unavailable Allergies Allergy Classification Reported Allergen(s) Allergy Type Date of Onset Reaction(s) Facility (3 sources) Acetaminophen / oxyCODONE Drug Allergy Unknown [facility] Other (1 source) Acetaminophen / oxyCODONE; Translations: [OXYCODONE-ACETAM INOPHEN] Drug Allergy 3 [facility] Repository (3 sources) oxyCODONE; Translations: [OXYCODONE] Drug Allergy 3 Hyperactive behavior (finding) [facility] Repository (1 source) Acetaminophen / oxyCODONE Drug Allergy [facility] Repository (1 source) oxyCODONE; Translations: [OxyCODONE Hydrochloride] Drug Allergy [facility] Repository Medications Current Medications Medication Drug [...] 20mg/24hrs, # 20 tab(s), Refills(s) 3, Pharmacy: [facility]/pharmacy #[id number], 188, cm, 06/03/23 10:01:00 EST, Height/Length [...] needed, # 2 tab(s), Refills(s) 0, Pharmacy: [facility]/pharmacy #[id number], 185.4, cm, 12/05/20 11:15:00 EDT, Height/Length [...] Resolved: 2 Chronic Other aftercare (1 source) longterm (current) use of oral hypoglycemic drugs; Translations: [LONGTERM USE ORAL HYPOGLYCEMIC DX] Onset: 3 Episodic Other aftercare (1 source) Other mcfp (current) drug therapy; Translations: [OTH LONGTERM CURRENT [...] Value Interpretation Reference Range Facility [facility] Reportson 10-27-2023 Lab Reports [id number]#1.0 0TIFF Normal [facility] Lab Reportson 07-01-2023 Lab Reports [id number]#1. 00TIFF Normal [facility] RAD - MISCon 06-04-2023 RAD - MISC [id number]#1.00 TIFF Normal [facility] Screenson 06-04-2023 Screens [id number]#1. 00TIFF Normal [facility] Patient Educationon 06-03-20 Patient Education Oncology [...] Where to find more information ? [employer] [place] [employer] [employer]: www.cancer.org ? [employer]: www.auanet.org Contact a health care [...] adds flu (more content not included)... Normal [facility] Urology Office/Clinic Noteon 06-03-2023 Urology Office/Clinic [...] plan. Follow-up With When Contact Information LIZ HERNADNEZ PA-C, URL [address] [place] [address] [phone] Additional Instructions: 6 mos w/ PSA Patient Education Prostate Cancer Screening Documentation recorded by the scribchris Burr accurately reflects the services(s) I performed and decisions made by me. Authenticated by Liz Hernandez PA-C on 06/03/2023 11:47:50. I, Maru Burr, personally scribed for Liz Hernandez PA-C on [...] CT guided bi (more content not included)... [facility] Comment on above: Result Comment: Elec tronically Signed By: LIZ HERNANDEZ PA-C\.br\Date and Time Signed: 06/03/23 11:48 EST\.br\Electronically Co-Signed By: Maru Burr\.br\Date and Time Co-Signed: 06/03/23 10:26 EST Immunization Recordson 04-23 Immunization Records [id number]#1. 00TIFF [facility] Consultation Noteon 04-15-20 Consultation Note [id number]#1.0 0CD:127 [facility] RAD - MISCon 12-24-2022 [facility] [place] [place] [id number]#1.00 CD:127 Normal [facility] XR LSPINE W_OBLS AND FLEX_EX Ton [...] by: RACHEAL GRAVES Date: 2022-12-05 09:46 Normal [facility] Consultation Noteon 12-05-19 Consultation Note [id number]#1.0 0CD:127 Normal [facility] CBC AUTO DIFFon 10-21-2022 BASO # 0.1 103/ul Normal 0.0-0.1 [facility] Comment on above: Performed By: #### P OCGLUC #### [facility] [address] [place] [address] Dr. Juliet García Basophils/100 WBC (Bld) 0.7 % Normal 0.2-2.0 [facility] Comment on above: Performed By: #### P OCGLUC #### [facility] [address] [place] [address] Dr. uJliet García EO # 0.4 103/ul Normal 0.0-0.7 [facility] Comment on above: Performed By: #### P OCGLUC #### [facility] [address] [place] [address] Dr. Juliet García Eosinophils/100 WBC (Bld) 5.3 % Normal 0.9-7.0 [facility] Comment on above: Performed By: #### P OCGLUC #### [facility] [address] [place] [address] Dr. Juliet García Erythrocyte distribution width (RBC) [Ratio] 14.0 % Normal 11.0-15.0 [facility] Comment on above: Performed By: #### P OCGLUC #### [facility] [address] [place] [address] Dr. Juliet García Hematocrit (Bld) [Volume fraction] 43.6 % Normal 42.0-54.0 [facility] Comment on above: Performed By: #### P OCGLUC #### [facility] [address] [place] [address] Dr. Juliet García Hemoglobin (Bld) [Mass/Vol] 14.9 g/dL Normal 14.0-18.0 [facility] Comment on above: Performed By: #### P OCGLUC #### [facility] [address] [place] [address] Dr. Juliet García IG # 0.03 10e3/ul Normal 0.00-0.03 [facility] Comment on above: Performed By: #### P OCGLUC #### [facility] [address] [place] [address] Dr. Juliet García IG % 0.4 % Normal 0.0-0.5 [facility] Comment on above: Performed By: #### P OCGLUC #### [facility] [address] [place] [address] Dr. Juliet García LYMPH # 2.0 103/ul Normal 1.2-3.8 [facility] Comment on above: Performed By: #### P OCGLUC #### [facility] [address] [place] [address] Dr. Juliet aGrcía Lymphocytes/100 WBC (Bld) 29.3 % Normal 20.5-60.0 [facility] Comment on above: Performed By: #### P OCGLUC #### [facility] [address] [place] [address] Dr. Juliet García MANUAL DIFF REQ NO Normal [facility] Comment on above: Performed By: #### P OCGLUC #### [facility] [address] [place] [address] Dr. Juliet García MCH (RBC) [Entitic mass] 33.4 pg Normal 25.9-34.0 [facility] Comment on above: Performed By: #### P OCGLUC #### [facility] [address] [address] [address] Juliet García MCHC (RBC) [Mass/Vol] 34.2 g/dL Normal 29.9-35.2 [facility] Comment on above: Performed By: #### P OCGLUC #### [facility] [address] [address] [address] Juliet García MCV (RBC) [Entitic vol] 97.8 fL Critically high 80.0-94.0 [facility] Comment on above: Performed By: #### P OCGLUC #### [facility] [address] [place] [address] Dr. Juliet García MONO # 0.7 103/ul Normal 0.3-0.8 [facility] Comment on above: Performed By: #### P OCGLUC #### [facility] [address] [place] [address] Dr. Juliet García Monocytes/100 WBC (Bld) 9.9 % Normal 1.7-12.0 [facility] Comment on above: Performed By: #### P OCGLUC #### [facility] [address] [place] [address] Dr. Juliet García NEUT # 3.7 103/ul Normal 1.4-6.5 [facility] Comment on above: Performed By: #### P OCGLUC #### [facility] [address] [place] [address] Dr. Juliet García Neutrophils/100 WBC (Bld) 54.4 % Normal 43.0-75.0 [facility] Comment on above: Performed By: #### P OCGLUC #### [facility] [address] [place] [address] Dr. Juliet aGrcía Platelet mean volume (Bld) [Entitic vol] 9.0 fL Critically low 9.5-13.5 [facility] Comment on above: Performed By: #### P OCGLUC #### [facility] [address] [address] [address] Juliet García PLT 211 103/ul Normal 150-450 [facility] Comment on above: Performed By: #### P OCGLUC #### [facility] [address] [address] [address] Juliet García RBC 4.46 106/ul Critically low 4.70-6.10 [facility] Comment on above: Performed By: #### P OCGLUC #### [facility] [address] [address] [address] Juliet García WBC 6.8 103/ul Normal 4.0-11.0 [facility] Comment on above: Performed By: #### P OCGLUC #### [facility] [address] [address] [address] Juliet García POINT OF CARE GLUCOSEon 10-12 Glucose [Mass/Vol] 100 mg/dL Normal 74-106 [facility] Comment on above: Performed By: #### P OCGLUC #### [facility] [address] [place] [address] Dr. Juliet García Glucose [Mass/Vol] 94 mg/dL Normal 74-[address] [facility] Comment on above: Performed By: #### A 1C #### [facility] [address] [place] [address] Dr. Juliet García PROF CHEM 8 (BAS METB)on Anion gap [Moles/Vol] 14.0 mmol/L Normal [facility] Comment on above: Performed By: #### B MP #### [facility] [address] [place] [address] Dr. Juliet García Calcium [Mass/Vol] 9.0 mg/dL Normal 8.5-10.[address] [facility] Comment on above: Performed By: #### B MP #### [facility] [address] [place] [address] Dr. Juliet García Chloride [Moles/Vol] 107 mmol/L Normal 98-107 [facility] Comment on above: Performed By: #### B MP #### [facility] [address] [address] [address] Juliet García CO2 [Moles/Vol] 28.7 mmol/L Normal 21.0-32.0 [facility] Comment on above: Performed By: #### B MP #### [facility] [address] [address] [address] Juliet García Creatinine [Mass/Vol] 1.41 mg/dL Critically high 0.70-1.30 [facility] Comment on above: Performed By: #### B MP #### [facility] [address] [address] [address] Juliet García EGFR-AF BAHAMIAN >60 Normal >=60 [facility] Comment on above: Performed By: #### B MP #### [facility] [address] [address] [address] Juliet García EGFR-NON AF BAHAMIAN 50 mL/min/1.73m2 Critically low >=60 [facility] Comment on above: Performed By: #### B MP #### [facility] [address] [address] [address] Juliet García Glucose [Mass/Vol] 95 mg/dL Normal 74-[address] [facility] Comment on above: Performed By: #### B MP #### [facility] [address] [address] [address] Juliet García Potassium [Moles/Vol] 4.7 mmol/L Normal 3.5-5.1 [facility] Comment on above: Performed By: #### B MP #### [facility] [address] [address] [address] Juliet García Sodium [Moles/Vol] 145 mmol/L Normal 136-[address] [facility] Comment on above: Performed By: #### B MP #### [facility] [address] [address] [address] Juliet García Urea nitrogen [Mass/Vol] 25.0 mg/dL Critically high 7.0-18.0 [facility] Comment on above: Performed By: #### B MP #### [facility] [address] [address] [address] Juliet García Urea nitrogen/Creatinine [Mass ratio] 17.7 mg/mg Normal [facility] Comment on above: Performed By: #### B MP #### [facility] [address] [address] [address] Juliet García Office Visiton 07-31-2022 Follow-up visit [id number] Carlos Locke 1955 M Date Provider Department Center 07/31/2022 BENTLEY MENDOZA [facility] Family History Problem Relation Age of Onset Stroke Father Family Status - Relation Status Age at Father Level of Service:95695 NE OFFICE/OUTPATIENT ESTABLISHED MOD MDM 30-39 MIN Reason for Visit and Comments: Hyperlipidemia [182] Hypertension [042672] history of PE [Other] Normal [facility] CULTURE WOUNDon 07-24-2022 CULTURE WOUND Culture Observations : No growth of anaerobes at 72 hours. Isolate 1 Stenotrophomonas maltophilia Moderate growth of ORGANISM 1 Stenotrophomonas maltophilia ANTIBIOTIC M.I.C RX STATUS Levofloxacin 1 S F Trimethoprim/Sulfameth oxazole <=20 S F Normal [facility] Comment on above: Performed By: #### W OUNDCX ####[facility] [address] [address]. Juliet García GLYCOHEMOGLOBIN A1Con 2022 ADA RECOMMENDATION SEE BELOW Normal [facility] Comment on above: Result Comment: ADA RECOMMENDED LIMIT 4.0 - 6.0 ADA THERAPEUTIC TARGET < 7.0 ACTION SUGGESTED > 7.0 Performed By: #### A 1C #### [facility] [address] [address] [address] Juliet García Glucose [Mass/Vol] 111 mg/dL Normal [facility] Comment on above: Performed By: #### A 1C #### [facility] [id number] Juliet García HbA1c (Bld) [Mass fraction] 5.5 % Normal 4.5-6.2 [facility] Comment on above: Performed By: #### A 1C #### [facility] [id number] Juliet García ECHOCARDIO M/2D COMPLETEon 1 08-29-2021 ECHOCARDIO M/2D COMPLETE Patient: CARLOS LOCKE Exam Date: 06/28/2022 : 1955 Gender:M Ordering : DR LOLY BARNARD M.D. Admission #: [id number] Family : Order #: [id number] CLICK HERE TO VIEW EXAM ECHOCARDIOGRAM REPORT [...] Mcmanus M.D. on 07/04/2022 at 13:38 Normal [facility] URIC ACID SERUMon 06-10-2022 Urate [Mass/Vol] 6.9 mg/dL Normal 3.5-7.2 [facility] Comment on above: Performed By: #### A 1C #### [facility] [address] [place] [address] Dr. Juliet García XR KUB 1 VIEWon [...] RACHEAL GRAVES Date: 2022-05-28 07:31 Normal [facility] CBC AUTO DIFFon 05-03-2022 BASO # 0.1 103/ul Normal 0.0-0.1 [facility] Comment on above: Performed By: #### C BC #### [facility] [address] [place] [address] Dr. Juliet García Basophils/100 WBC (Bld) 0.9 % Normal 0.2-2.0 [facility] Comment on above: Performed By: #### C BC #### [facility] [address] [place] [address] Dr. Juliet García EO # 0.4 103/ul Normal 0.0-0.7 [facility] Comment on above: Performed By: #### C BC #### [facility] [address] [place] [address] Dr. Juliet aGrcía Eosinophils/100 WBC (Bld) 5.2 % Normal 0.9-7.0 [facility] Comment on above: Performed By: #### C BC #### [facility] [address] [place] [address] Dr. Juliet García Erythrocyte distribution width (RBC) [Ratio] 13.6 % Normal 11.0-15.0 [facility] Comment on above: Performed By: #### C BC #### [facility] [address] [place] [address] Dr. Juliet García Hematocrit (Bld) [Volume fraction] 40.5 % Critically low 42.0-54.0 [facility] Comment on above: Performed By: #### C BC #### [facility] [address] [place] [address] Dr. Juliet García Hemoglobin (Bld) [Mass/Vol] 13.7 g/dL Critically low 14.0-18.0 [facility] Comment on above: Performed By: #### C BC #### [facility] [address] [place] [address] Dr. Juleit García IG # 0.02 10e3/ul Normal 0.00-0.03 [facility] Comment on above: Performed By: #### C BC #### [facility] [address] [place] [address] Dr. Juliet García IG % 0.3 % Normal 0.0-0.5 [facility] Comment on above: Performed By: #### C BC #### [facility] [address] [place] [address] Dr. Juliet García LYMPH # 1.9 103/ul Normal 1.2-3.8 [facility] Comment on above: Performed By: #### C BC #### [facility] [address] [place] [address] Dr. Juliet García Lymphocytes/100 WBC (Bld) 27.7 % Normal 20.5-60.0 [facility] Comment on above: Performed By: #### C BC #### [facility] [address] [place] [address] Dr. Juliet García MANUAL DIFF REQ NO Normal [facility] Comment on above: Performed By: #### C BC #### [facility] [address] [place] [address] Dr. Juliet García MCH (RBC) [Entitic mass] 33.3 pg Normal 25.9-34.0 [facility] Comment on above: Performed By: #### C BC #### [facility] [address] [place] [address] Dr. Juliet García MCHC (RBC) [Mass/Vol] 33.8 g/dL Normal 29.9-35.2 [facility] Comment on above: Performed By: #### C BC #### [facility] [address] [place] [address] Dr. Juliet García MCV (RBC) [Entitic vol] 98.3 fL Critically high 80.0-94.0 [facility] Comment on above: Performed By: #### C BC #### [facility] [address] [place] [address] Dr. Juliet García MONO # 0.7 103/ul Normal 0.3-0.8 [facility] Comment on above: Performed By: #### C BC #### [facility] [address] [place] [address] Dr. Juliet García Monocytes/100 WBC (Bld) 9.9 % Normal 1.7-12.0 [facility] Comment on above: Performed By: #### C BC #### [facility] [address] [place] [address] Dr. Juliet García NEUT # 3.8 103/ul Normal 1.4-6.5 [facility] Comment on above: Performed By: #### C BC #### [facility] [address] [place] [address] Dr. Juliet García Neutrophils/100 WBC (Bld) 56.0 % Normal 43.0-75.0 [facility] Comment on above: Performed By: #### C BC #### [facility] [address] [place] [address] Dr. Juliet García Platelet mean volume (Bld) [Entitic vol] 9.0 fL Critically low 9.5-13.5 [facility] Comment on above: Performed By: #### C BC #### [facility] [address] [place] [address] Dr. Juliet García PLT 201 103/ul Normal 150-450 [facility] Comment on above: Performed By: #### C BC #### [facility] [address] [place] [address] Dr. Juliet García RBC 4.12 106/ul Critically low 4.70-6.10 [facility] Comment on above: Performed By: #### C BC #### [facility] [address] [place] [address] Dr. Juliet García WBC 6.7 103/ul Normal 4.0-11.0 [facility] Comment on above: Performed By: #### C BC #### [facility] [address] [place] [address] Dr. Juliet García GLYCOHEMOGLOBIN A1Con 2021 ADA RECOMMENDATION SEE BELOW Normal [facility] Comment on above: Result Comment: ADA RECOMMENDED LIMIT 4.0 - 6.0 ADA THERAPEUTIC TARGET < 7.0 ACTION SUGGESTED > 7.0 Performed By: #### A 1C #### [facility] [address] [place] [address] Dr. Juliet García Glucose [Mass/Vol] 108 mg/dL Normal [facility] Comment on above: Performed By: #### A 1C #### [facility] [address] [address] [address] Juliet García HbA1c (Bld) [Mass fraction] 5.4 % Normal 4.5-6.2 [facility] Comment on above: Performed By: #### A 1C #### [facility] [address] [address] [address] Juliet García LIPID PROFILEon 05-03-2022 CHOL-HDL RATIO NORM SEE BELOW Normal [facility] Comment on above: Result Comment: 3.3 - 4.4 LOW RISK 4.4 - 7.1 AVERAGE RISK 7.1 - 11.0 MODERATE RISK >11.0 HIGH RISK Performed By: #### L IPID, CMP #### [facility] [address] [address] [address] Juliet García Cholesterol [Mass/Vol] 154 mg/dL Normal <=200 [facility] Comment on above: Performed By: #### L IPID, CMP #### [facility] [address] [address] [address] Juliet García Cholesterol in HDL [Mass/Vol] 29 mg/dL Critically low 40-60 [facility] Comment on above: Performed By: #### L IPID, CMP #### [facility] [address] [address] [address] Juliet García Cholesterol in LDL [Mass/Vol] 64.2 mg/dL Normal [facility] Comment on above: Performed By: #### L IPID, CMP #### [facility] [address] [address] [address] Juliet García Cholesterol.total/Ch olesterol in HDL [Mass ratio] 5.3 {ratio} Normal [facility] Comment on above: Performed By: #### L IPID, CMP #### [facility] [address] [address] [address] Juliet García HDL NORMAL > or = 60 mg/dl - LO W CARDIOVASCULAR RISK <40 mg/dl - HIGH CARDIOVASCULAR RISK Normal [facility] Comment on above: Performed By: #### L IPID, CMP #### [facility] [address] [address] [address] Juliet García LDL CALC NORMAL SEE BELOW Normal [facility] Comment on above: Result Comment: <100 mg/dl OPTIMAL 100 - 129 mg/dl NEAR OR ABOVE OPTIMAL 130 - 159 mg/dl BORDERLINE HIGH 160 - 189 mg/dl HIGH >190 mg/dl VERY HIGH Performed By: #### L IPID, CMP #### [facility] [address] [address] [address] Juliet García Triglyceride [Mass/Vol] 304 mg/dL Critically high <=150 [facility] Comment on above: Performed By: #### L IPID, CMP #### [facility] [address] [address] [address] Juliet García VLDL CALC 60.8 mg/dL Normal [facility] Comment on above: Performed By: #### L IPID, CMP #### [facility] [address] [address] [address] Juliet García PROF 14(COMP METB)on 022 Albumin [Mass/Vol] 3.7 g/dL Normal 3.4-5.0 [facility] Comment on above: Performed By: #### L IPID, CMP #### [facility] [address] [place] [address] Dr. Juliet García Albumin/Globulin [Mass ratio] 1.1 {ratio} Normal [facility] Comment on above: Performed By: #### L IPID, CMP #### [facility] [address] [place] [address] Dr. Juliet García ALP [Catalytic activity/Vol] 87 U/L Normal 46-116 [facility] Comment on above: Performed By: #### L IPID, CMP #### [facility] [address] [place] [address] Dr. Juliet García ALT [Catalytic activity/Vol] 52 U/L Normal 16-63 [facility] Comment on above: Performed By: #### L IPID, CMP #### [facility] [address] [address] [address] Juliet García Anion gap [Moles/Vol] 11.5 mmol/L Normal [facility] Comment on above: Performed By: #### L IPID, CMP #### [facility] [address] [address] [address] Juliet García AST [Catalytic activity/Vol] 27 U/L Normal 15-37 [facility] Comment on above: Performed By: #### L IPID, CMP #### [facility] [address] [place] [address] Dr. Juliet García Bilirubin [Mass/Vol] 0.4 mg/dL Normal 0.2-1.0 [facility] Comment on above: Performed By: #### L IPID, CMP #### [facility] [address] [place] [address] Dr. Juliet García Calcium [Mass/Vol] 8.7 mg/dL Normal 8.5-10.1 [facility] Comment on above: Performed By: #### L IPID, CMP #### [facility] [address] [place] [address] Dr. Juliet García Chloride [Moles/Vol] 106 mmol/L Normal 98-107 [facility] Comment on above: Performed By: #### L IPID, CMP #### [facility] [address] [place] [address] Dr. Juliet García CO2 [Moles/Vol] 28.2 mmol/L Normal 21.0-32.0 [facility] Comment on above: Performed By: #### L IPID, CMP #### [facility] [address] [place] [address] Dr. Juliet García Creatinine [Mass/Vol] 1.21 mg/dL Normal 0.70-1.30 [facility] Comment on above: Performed By: #### L IPID, CMP #### [facility] [address] [place] [address] Dr. Juliet García EGFR-AF BAHAMIAN >60 Normal >=60 [facility] Comment on above: Performed By: #### L IPID, CMP #### [facility] [address] [address] [address] Juliet García EGFR-NON AF BAHAMIAN =60 Normal >=60 [facility] Comment on above: Performed By: #### L IPID, CMP #### [facility] [address] [address] [address] Juliet García Globulin (S) [Mass/Vol] 3.4 g/dL Normal [facility] Comment on above: Performed By: #### L IPID, CMP #### [facility] [address] [address] [address] Juliet García Glucose [Mass/Vol] 100 mg/dL Normal 74-[address] [facility] Comment on above: Performed By: #### L IPID, CMP #### [facility] [address] [place] [address] Dr. Juliet García Potassium [Moles/Vol] 4.7 mmol/L Normal 3.5-5.1 [facility] Comment on above: Performed By: #### L IPID, CMP #### [facility] [address] [place] [address] Dr. Juliet García Protein [Mass/Vol] 7.1 g/dL Normal 6.4-8.[address] [facility] Comment on above: Performed By: #### L IPID, CMP #### [facility] [address] [place] [address] Dr. Juliet García Sodium [Moles/Vol] 141 mmol/L Normal 136-[address] [facility] Comment on above: Performed By: #### L IPID, CMP #### [facility] [address] [place] [address] Dr. Juliet García Urea nitrogen [Mass/Vol] 23.0 mg/dL Critically high 7.0-18.0 [facility] Comment on above: Performed By: #### L IPID, CMP #### [facility] [address] [place] [address] Dr. Juliet García Urea nitrogen/Creatinine [Mass ratio] 19.0 mg/mg Normal [facility] Comment on above: Performed By: #### L IPID, CMP #### [facility] [id number] Juliet García VC CONSULT FOLLOWUPon 2021 VC CONSULT FOLLOWUP Patient: CARLOS LOCKE Exam Date: 04/08/2022 : 1955 Gender:M Ordering : DR RACHEAL GRAVES M.D. Admission #: [id number] Family : Order #: [id number] CLICK HERE [...] MD on 04/08/2022 at 11:30 Normal [facility] VC EXT VENOUS RT LIMITEDon 0 04-08-2022 VC EXT VENOUS RT LIMITED Patient: CARLOS LOCKE Exam Date: 04/08/2022 : 1955 Gender:M Ordering : DR RACHEAL GRAVES M.D. Admission #: [id number] Family : Order #: [id number] CLICK HERE TO VIEW EXAM RADIOLOGY REPORT [...] Graves MD on 04/08/2022 at 11:31 Normal [facility] VC INJ FOAM SCLERO W US MLTI on 04-03-2022 VC INJ FOAM SCLERO W US MLTI Patient: CARLOS LOCKE Exam Date: 04/03/2022 : 1955 Gender:M Ordering : DR RACHEAL GRAVES M.D. Admission #: [id number] Family : DR NATHALY BOONE . Order #: [id number] CLICK HERE TO VIEW EXAM RADIOLOGY REPORT [...] av (more content not included)... Normal [facility] VC CONSULT FOLLOWUPon 2021 VC CONSULT FOLLOWUP Patient: CARLOS LOCKE Exam Date: 03/25/2022 : 1955 Gender:M Ordering : DR RACHEAL GRAVES M.D. Admission #: [id number] Family : Order #: [id number] CLICK HERE TO VIEW EXAM RADIOLOGY REPORT [...] Kenny M.D. on 03/25/2022 at 08:41 Normal [facility] VC EXT VENOUS RT LIMITEDon 0 03-25-2022 VC EXT VENOUS RT LIMITED Patient: CARLOS LOCKE Exam Date: 03/25/2022 : 1955 Gender:M Ordering : DR RACHEAL GRAVES M.D. Admission #: [id number] Family : Order #: [id number] CLICK HERE TO VIEW EXAM RADIOLOGY REPORT [...] Elin Kenny M.D. on 03/25/2022 at 08:39 [facility] VC ENDOVENOUS ABL 1ST V RTon 03-19-2022 VC ENDOVENOUS ABL 1ST V RT Patient: CARLOS LOCKE Exam Date: 03/19/2022 : 1955 Gender:M Ordering : DR RACHEAL GRAVES M.D. Admission #: [id number] Family : Order #: [id number] CLICK HERE TO VIEW EXAM RADIOLOGY REPORT [...] Graves MD on 03/19/2022 at 08:58 Normal [facility] VC CONSULT FOLLOWUPon 2021 VC CONSULT FOLLOWUP Patient: CARLOS LOCKE Exam Date: 02/18/2022 : 1955 Gender:M Ordering : DR RACHEAL GRAVES M.D. Admission #: [id number] Family : Order #: [id number] CLICK HERE TO VIEW EXAM RADIOLOGY REPORT [...] Graves MD on 02/18/2022 at 09:45 Normal [facility] VC EXT VENOUS LT LIMITEDon 0 02-18-2022 VC EXT VENOUS LT LIMITED Patient: CARLOS LOCKE Exam Date: 02/18/2022 : 1955 Gender:M Ordering : DR RACHEAL GRAVES M.D. 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 *Exam performed in accordance with [employer]UM practice guidelines- Peripheral venous ultrasound, October 07, 2009. CONCLUSION: Post ablation occlusion of left leg varicose veins Dictated by: Racheal Graves MD on 02/18/2022 at 09:32 Approved by: Racheal Graves MD on 02/18/2022 at 09:36 Normal [facility] VC INJ FOAM SCLERO W US MLTI on 02-13-2022 VC INJ FOAM SCLERO W US MLTI Patient: CARLOS LOCKE Exam Date: 02/13/2022 : 1955 Gender:M Ordering : DR RACHEAL GRAVES M.D. Admission #: [id number] Family : Order #: [id number] CLICK HERE TO VIEW EXAM RADIOLOGY REPORT [...] Elin Kenny M.D. on 02/13/2022 at 10:15 [facility] VC CONSULT FOLLOWUPon 2021 VC CONSULT FOLLOWUP Patient: CARLOS LOCKE Exam Date: 02/06/2022 : 1955 Gender:M Ordering : DR RACHEAL GRAVES M.D. Admission #: [id number] Family : Order #: [id number] CLICK HERE TO VIEW EXAM RADIOLOGY REPORT [...] M.D. on 02/06/2022 at 09:53 Normal [facility] VC EXT VENOUS LT LIMITEDon 0 02-06-2022 VC EXT VENOUS LT LIMITED Patient: ACRLOS LOCKE Exam Date: 02/06/2022 : 1955 Gender:M Ordering : DR RACHEAL GRAVES M.D. Admission #: [id number] Family : Order #: [id number] CLICK HERE TO VIEW EXAM RADIOLOGY REPORT [...] Kenny M.D. on 02/06/2022 at 09:49 Normal [facility] GLYCOHEMOGLOBIN A1Con 2021 ADA RECOMMENDATION SEE BELOW Normal [facility] Comment on above: Result Comment: ADA RECOMMENDED LIMIT 4.0 - 6.0 ADA THERAPEUTIC TARGET < 7.0 ACTION SUGGESTED > 7.0 Performed By: #### A 1C #### [facility] [address] [address] [address] Juliet García Glucose [Mass/Vol] 108 mg/dL Normal [facility] Comment on above: Performed By: #### A 1C #### [facility] [address] [address] [address] Juliet García HbA1c (Bld) [Mass fraction] 5.4 % Normal 4.5-6.2 [facility] Comment on above: Performed By: #### A 1C #### [facility] [address] [address] [address] Juliet García PROF 14(COMP METB)on 022 Albumin [Mass/Vol] 4.0 g/dL Normal 3.4-5.0 [facility] Comment on above: Performed By: #### C MP ####[facility] [address] [id number]. Juliet García Albumin/Globulin [Mass ratio] 1.2 {ratio} Normal [facility] Comment on above: Performed By: #### C MP ####[facility] [address] [id number]. Juliet García ALP [Catalytic activity/Vol] 89 U/L Normal 46-116 [facility] Comment on above: Performed By: #### C MP ####[facility] [address] [address]Dr. Juliet García ALT [Catalytic activity/Vol] 81 U/L Critically high 16-63 [facility] Comment on above: Performed By: #### C MP ####[facility] [address] [id number]. Juliet García Anion gap [Moles/Vol] 13.6 mmol/L Normal [facility] Comment on above: Performed By: #### C MP ####[facility] [address] [address]Dr. Juliet García AST [Catalytic activity/Vol] 32 U/L Normal 15-37 [facility] Comment on above: Performed By: #### C MP ####[facility] [address] [address]Dr. Juliet García Bilirubin [Mass/Vol] 0.5 mg/dL Normal 0.2-1.0 [facility] Comment on above: Performed By: #### C MP ####[facility] [address] [address]Dr. Juliet García Calcium [Mass/Vol] 8.9 mg/dL Normal 8.5-10.1 [facility] Comment on above: Performed By: #### C MP ####[facility] [address] [address]Dr. Juliet García Chloride [Moles/Vol] 106 mmol/L Normal 98-107 [facility] Comment on above: Performed By: #### C MP ####[facility] [address] [address]Dr. Juliet García CO2 [Moles/Vol] 27.1 mmol/L Normal 21.0-32.0 [facility] Comment on above: Performed By: #### C MP ####[facility] [address] [address]Dr. Juliet García Creatinine [Mass/Vol] 1.46 mg/dL Critically high 0.70-1.30 [facility] Comment on above: Performed By: #### C MP ####[facility] [address] [address]Dr. Juliet García EGFR-AF BAHAMIAN 59 mL/min/1.73m2 Critically low >=60 [facility] Comment on above: Performed By: #### C MP ####[facility] [address] [address]Dr. Juliet García EGFR-NON AF BAHAMIAN 48 mL/min/1.73m2 Critically low >=60 [facility] Comment on above: Performed By: #### C MP ####[facility] [address] [address]Dr. Juliet García Globulin (S) [Mass/Vol] 3.4 g/dL Normal [facility] Comment on above: Performed By: #### C MP ####[facility] [address] [address]Dr. Juliet Ricky Glucose [Mass/Vol] 93 mg/dL Normal 74-[address] [facility] Comment on above: Performed By: #### C MP ####[facility] [address] [address]Dr. Juliet Ricky Potassium [Moles/Vol] 4.7 mmol/L Normal 3.5-5.1 [facility] Comment on above: Performed By: #### C MP ####[facility] [address] [address]Dr. Juliet García Protein [Mass/Vol] 7.4 g/dL Normal 6.4-8.[address] [facility] Comment on above: Performed By: #### C MP ####[facility] [address] [address]Dr. Juliet García Sodium [Moles/Vol] 142 mmol/L Normal 136-[address] [facility] Comment on above: Performed By: #### C MP ####[facility] [address] [address]Dr. Juliet Ricky Urea nitrogen [Mass/Vol] 25.0 mg/dL Critically high 7.0-18.0 [facility] Comment on above: Performed By: #### C MP ####[facility] [address] [place], [place] [address]DnRusty García Urea nitrogen/Creatinine [Mass ratio] 17.1 mg/mg Normal [facility] Comment on above: Performed By: #### C MP ####[facility] [address] [place], [place] [address]Tt. Juliet García VC ENDOVENOUS ABL 1ST V LTon 01-30-2022 VC ENDOVENOUS ABL 1ST V LT Patient: CARLOS LOCKE Exam Date: 01/30/2022 : 1955 Gender:M Ordering : DR RACHEAL GRAVES M.D. Admission #: [id number] Family : Order #: [id number] CLICK HERE TO VIEW EXAM RADIOLOGY REPORT [...] Kenny M.D. on 01/30/2022 at 12:00 Normal [facility] POINT OF CARE GLUCOSEon 01-11 Glucose [Mass/Vol] 84 mg/dL Normal 74-106 [facility] Comment on above: Performed By: #### P OCGLUC #### [facility] [address] [place] [address] Dr. Juliet García VC COMP CONSULTATIONon 01-21 VC COMP CONSULTATION Patient: CARLOS LOCKE Exam Date: 01/21/2022 : 1955 Gender:M Ordering : DR RACHEAL GRAVES M.D. Admission #: [id number] Family : Order #: [id number] CLICK HERE TO VIEW EXAM RADIOLOGY REPORT [...] for years. The patient is retired from [employer] after working 42 years. The patient denies [...] additional information, and this was performed [facility]. See separate history and physical for [...] incompetent branch saphenous tributary/varicose veins. 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 PHYSICAL EXAM: The right leg demonstrates [...] pulses were present bilaterally. IMPRESSION: 1. Bilateral bgcz-kp-cnkxklcr great saphenous vein and mild right small [...] Graves MD on 01/21/2022 at 11:46 Normal [facility] VC VENOUS REFLUX MARIE LMTon 0 01-21-2022 VC VENOUS REFLUX MARIE LMT Patient: CARLOS LOCKE Exam Date: 01/21/2022 : 1955 Gender:M Ordering : DR RACHEAL GRAVES M.D. Admission #: [id number] Family : DR NATHALY BOONE . Order #: [id number] CLICK HERE TO VIEW EXAM RADIOLOGY REPORT [...] Compressibility: Normal. Flow: Mild deep venous reflux. Water Use Inspector: Post/prox calf 5.9mm, 0.7s reflux. Prox/med calf [...] Graves MD on 01/21/2022 at 10:40 Normal [facility] POINT OF CARE GLUCOSEon 06- Glucose [Mass/Vol] 87 mg/dL Normal 74-106 [facility] Comment on above: Performed By: #### P OCGLUC ####[facility] [address] [place], [place] [address]Ve. Juliet García SURGICAL PATHOLOGYon 021 SURGICAL PATHOLOGY Specimen #: [id number] Submitting Physician: JULIET GARCÍA M.D. FINAL DIAGNOSIS [place], [place]; [id number] (12/07/2020) Liver, mass , biopsy (A1, A2, [...] do not hesitate to contact us at [phone] with questions or if additional follow up information becomes available. This case was reviewed in conjunction with the GI pathology fellow, Apoorva Diallo MD. The following stains were performed at the [facility] in order to further characterize this [...] in-situ hybridization tests have been determined by [facility]'s [facility] [place] ([facility]) in a manner consistent with CLIA requirements. One or more of these tests have not been cleared or approved by the FDA. [facility] is regulated under CLIA as qualified to perform high-complexity testing. These tests are used for clinical purposes. They should not be regarded as investigational or for research. Nicolasa Cheema M.D. (Electronic Signature) _ SPECIMEN SUBMITTED A: 12 slides [id number] CLINICAL DATA Mass Date of Report: 03/27/2021 Date of Procedure: 03/16/2021 Date of Receipt: 03/15/2021 Submitted by: JULIET GARCÍA M.D. Location: Diagnostic interpretation performed at [facility], [address] [place] [address]. CLIA Number: [id number] Normal [facility] Comment on above: Performed By: #### S #### See report for performing lab information. Vital Signs Date Time Vital Sign Value Performing Clinician Facility 06-03-2023 09:59-0500 Blood Pressure Location [facility] 06-03-2023 09:59-0500 Diastolic blood pressure 74 mm[Hg] LIZDOYLE FRANCORY [facility] 06-03-2023 09:59-0500 Heart rate 70 /min LIZDOYLE FRANCORY [facility] 06-03-2023 09:59-0500 Respiratory rate 16 /min LIZDOYLE FRANCORY [facility] 06-03-2023 09:59-0500 Systolic blood pressure 138 mm[Hg] LIZDOYLE FRANCORY [facility] 05-23-2022 09:45-0500 Body height 187.96 cm Alejandra Olexa Other [facility] Other 05-23-2022 09:45-0500 Body mass index (BMI) [Ratio] 40.57 kg/m2 Alejandra Olexa Other [facility] Other 05-23-2022 09:45-0500 Body weight 143.34 kg Alejandra Olexa Other [facility] Other 08-07-2021 14:15-0500 Body height 187.96 cm Alejandra Olexa Other [facility] Other 08-07-2021 14:15-0500 Body mass index (BMI) [Ratio] 40.64 kg/m2 Alejandra Olexa Other [facility] Other 08-07-2021 14:15-0500 Body weight 143.61 kg Alejandra Olexa Other [facility] Other 04-12-2021 10:30-0400 Body height 187.96 cm Racheal Daniels Other [facility] Other 04-12-2021 10:30-0400 Body mass index (BMI) [Ratio] 41.75 kg/m2 Racheal Daniels Other [facility] Other 04-12-2021 10:30-0400 Body weight 147.51 kg Racheal Daniels Other [facility] Other 04-12-2021 10:30-0400 Diastolic blood pressure 71 mm[Hg] Racheal Daniels Other [facility] Other 04-12-2021 10:30-0400 Systolic blood pressure 131 mm[Hg] Racheal Daniels Other [facility] Other Encounters Encounter Date Encounter Type Care Provider Facility Start: 11-04-2023 ambulatory LIZ Martinez ty:YAYA Rodriguez Start: 07-23-2023 End: 07-23-2023 ambulatory HARINDER RUGGIERO Not Available Start: 06-30-2023 End: 07-01-2023 ambulatory Donaldo Sparrow MD Facility:[facility] Start: 06-03-2023 End: 06-04-2023 ambulatory LIZ HERNANDEZ Facility:[facility] Start: 06-03-2023 End: 06-03-2023 Patient encounter procedure LIZ Juarez DAVID [facility] Start: 01-06-2023 End: 01-07-2023 ambulatory Donaldo Sparrow MD Facility:[facility] Start: 12-05-2022 End: 12-06-[address] FELISA BERRIOS . Facility:[facility] Start: 12-03-2022 End: 12-04-[address] FELISA BERRIOS . Facility:[facility] Start: 11-29-2022 End: 11-30-2022 ambulatory CRISPIN GONSALEZ . Facility:[facility] Start: 11-12-2022 End: 11-13-[address] FELISA BERRIOS . Facility:[facility] Start: 11-05-2022 End: 11-06-[address] FELISA BERRIOS . Facility:[facility] Start: 10-28-2022 End: 10-29-[address] FELISA BERRIOS . Facility:[facility] Start: 10-21-2022 End: 10-21-[address] FELISA BERRIOS . Facility:[facility] Start: 10-18-2022 Encounter for preprocedural cardiovascular examination [facility] Start: 10-18-2022 Encounter for preprocedural laboratory examination [facility] Start: 10-16-[address] FELISA BERRIOS . [...] ambulatory DR FELISA BERRIOS . Facility:[facility] Start: 08-26-2022 End: 08-27-[address] FELISA BERRIOS . Facility:[facility] Start: 08-06-2022 End: 08-07-2022 ambulatory TONIO Latham [facility] Facility:[facility] Start: 07-31-2022 End: 07-31-2022 ambulatory [facility] Start: 07-31-2022 End: 08-01-[address] NATHALY BOONE . Facility:[facility] Start: 07-25-2022 End: 07-26-2022 ambulatory RODRIGO JOHNSON . Facility:[facility] Start: 07-24-2022 End: 07-25-2022 ambulatory TONIO Latham [facility] Facility:[facility] Start: 07-23-2022 End: 07-24-[address] [...] 05-23-2022 End: 05-23-2022 ambulatory Alejandra Cain Other [facility] Other Start: 05-23-2022 Office outpatient vi sit 15 minutes Alejandra Cain [facility] Start: 05-03-2022 End: 05-04-[address] [...] Start: 02-06-2022 End: 02-07-[address] FELISA BERIROS . Facility:[facility] Start: 02-05-2022 End: 02-06-[address] FELISA BERRIOS . Facility:[facility] Start: 01-30-2022 End: 01-31-[address] FELISA BERRIOS . Facility:[facility] Start: 01-22-2022 End: 01-22-[address] FELISA BERRIOS . Facility:[facility] Start: 01-21-2022 End: 01-22-[address] FELISA BERRIOS . Facility:[facility] Start: 01-08-2022 End: 01-08-[address] FELISA BERRIOS . Facility:[facility] Start: 08-07-2021 End: 08-07-2021 ambulatory Alejandra Cain Other [facility] Other Start: 08-07-2021 Office outpatient vi sit 15 minutes Alejandra Cain [facility] Start: 04-12-2021 Office outpatient vi sit 15 minutes Racheal Daniels [facility] Procedures Date Procedure Procedure Detail Performing Clinician Start: 05-03-[address] RACHEAL GRAVES Comment on above: Performed By: #### P SAD #### [facility] [address] [place] [address] Dr. Juliet García Start: 12-07-2020 CT guided biopsy NATALIE HERNANDEZ Comment on above: LIVER. NO SEDATION. Arthroscopy of knee LIZ HERNANDEZ Bilateral cataracts (disorder) LIZ HERNANDEZ H/O: vasectomy LIZ KENDALL Y Titanium (substance) JOSE HERNANDEZ Comment on above: Toe Tonsillectomy LIZ HERNANDEZ Immunizations Immunization Date Immunization Notes Care Provider Michelle thomas 04-20-2023 SARS-CoV-2 mRNA (tozinameran 5y-11y) vaccine ILZ HERNANDEZ [facility] Comment on above: Result Comment: covi d 19 mRNA (cvs) 04-17-2022 influenza virus vacc ine, unspecified formulation LIZ HERNANDEZ [facility] 03-23-2022 SARS-CoV-2 (COVID-19 ) [id number] LIZ HERNANDEZ [facility] 10-23-2021 SARS-CoV-2 mRNA (wvlswllgfjx-vktn-wayfhd e) vaccine LIZ HERNANDEZ [facility] 05-27-2021 pneumococcal polysaccharide vaccine, 23 valent LIZ HERNANDEZ [facility] 05-06-2021 SARS-CoV-2 (COVID-19 ) mRNA BNT-162b2 vax LIZ HERNANDEZ [facility] Comment on above: Result Comment: 2021: [id number] 04-07-2021 influenza virus vacc ine, unspecified formulation LIZ HERNANDEZ [facility] 09-18-2020 SARS-CoV-2 (COVID-19 ) mRNA BNT-162b2 vax LIZ HERNANDEZ [facility] 04-19-2020 influenza virus vacc ine, unspecified formulation LIZ HERNANDEZ [facility] 04-15-2020 influenza virus vacc ine, unspecified formulation LIZ DAVID [facility] 04-20-2018 influenza virus vacc ine, unspecified formulation LIZ DAVID [facility] 03-24-2018 influenza virus vacc ine, unspecified formulation LIZ HERNANDEZ [facility] 05-01-2013 influenza virus vacc ine, unspecified formulation LIZ DAVID [facility] Payers Date Payer Category Payer Medicare 2022 Unknown [id number] 2022 Unknown 2021 Medicare [id number] 2019 Unknown [id number] . [id number] 1959 Medicare [id number] 1955 Unknown [id number] 2.16.84 0.1.026246.3.579.2.593 1955 Unknown [id number] .16.84 0.1.660491.3.579.2.593 1955 Unknown [id number] .16.84 0.1.834725.3.579.2.593 1955 Unknown [id number] .16.84 0.1.584847.3.579.2.593 1955 Unknown [id number] .16.84 0.1.684122.3.579.2.593 1955 Unknown [id number] 2.16.84 0.1.041556.3.579.2.593 1955 Unknown [id number] 2.16.84 0.1.153760.3.579.2.593 1955 Unknown [id number] 2.16.84 0.1.549758.3.579.2.593 1955 Unknown [id number] 2.16.84 0.1.475789.3.579.2.593 1955 Unknown [id number] 2.16.84 0.1.581348.3.579.2.593 1955 Unknown [id number] 2.16.84 0.1.322412.3.579.2.593 1955 Unknown [id number] 2.16.84 0.1.839349.3.579.2.593 1955 Unknown [id number] 2.16.84 0.1.783646.3.579.2.593 1955 Unknown [id number] 2.16.84 0.1.467859.3.579.2.593 1956 Unknown [id number] 2.16.84 0.1.034739.3.579.2.593 1955 Unknown [id number] 2.16.84 0.1.388110.3.579.2.593 1956 Unknown [id number] 2.16.84 0.1.093277.3.579.2.593 1956 Unknown [id number] 2.16.84 0.1.389660.3.579.2.593 1956 Unknown [id number] 2.16.84 0.1.581568.3.579.2.593 1956 Unknown [id number] 2.16.84 0.1.324264.3.579.2.593 1956 Unknown [id number] 2.16.84 0.1.084469.3.579.2.593 1956 Unknown [id number] 2.16.84 0.1.329284.3.579.2.593 1956 Unknown [id number] 2.16.84 0.1.284627.3.579.2.593 1956 Unknown [id number] 2.16.84 0.1.108985.3.579.2.593 1956 Unknown [id number] 2.16.84 0.1.661044.3.579.2.593 1956 Unknown [id number] 2.16.84 0.1.494687.3.579.2.593 1956 Unknown [id number] 2.16.84 0.1.665206.3.579.2.593 1956 Unknown [id number] 2.16.84 0.1.008966.3.579.2.593 1956 Unknown [id number] 2.16.84 0.1.297420.3.579.2.593 1956 Unknown [id number] 2.16.84 0.1.302835.3.579.2.593 1956 Unknown [id number] 2.16.84 0.1.232032.3.579.2.593 1956 Unknown [id number] 2.16.84 0.1.683510.3.579.2.593 1956 Unknown [id number] 2.16.84 0.1.118788.3.579.2.593 1956 Unknown [id number] 2.16.84 0.1.438691.3.579.2.593 1956 Unknown [id number] 2.16.84 0.1.080964.3.579.2.593 1956 Unknown [id number] 2.16.84 0.1.559928.3.579.2.593 1956 Unknown [id number] 2.16.84 0.1.429856.3.579.2.593 1956 Unknown [id number] 2.16.84 0.1.599234.3.579.2.593 1956 Unknown [id number] 2.16.84 0.1.218898.3.579.2.593 1956 Unknown [id number] 2.16.84 0.1.428582.3.579.2.593 1956 Unknown [id number] 2.16. 840.1.355436.3.579.2.196 1956 Unknown [id number] 2.16. 840.1.281315.3.579.2.196 1956 Unknown [id number] 2.16. 840.1.203278.3.579.2.196 1956 Unknown [id number] 2.16.84 0.1.439063.3.579.2.1259 1956 Unknown [id number] 2.16.8 40.1.489224.3.579.2.727 1956 Unknown [id number] 2.16.8 40.1.328001.3.579.2.727 Social History Date Type Detail Facility Sex Assigned At [facility] Start: 06-03-2023 Tobacco smoking status Never s moked tobacco (finding) [facility] Tobacco smoking status Never [facility] Functional Status Date Assessment Result Facility 06-03-2023 Functional Status N/A [facility] Clinical Notes 04-12-2021 to 06-03-2023 Note [...] treatment? Where to find more information [employer]: www.cancer.org [employer]: www.auanet.org Contact a health care [...] provider. Document Revised: 12/24/2021 Document Reviewed: 12/24/2021 Infogram Patient Education 2022 [employer]. Follow Up Care 05/29/2022 11:47:27 With:DAVID IVAN, LIZ Juarez, URL Address: [address] [place] [address] [phone] When: Unknown Comments:6 mos w/ PSA [facility] 12-03-2022 Note PROCEDURE: XR FOOT L [...] by: ELIN KENNY Date: 2022-12-03 09:57 [facility] 11-12-2022 Note PROCEDURE: XR FOOT L [...] by: ZAFAR FERRER Date: 2022-11-12 13:59 [facility] 10-22-2022 Note PROCEDURE: XR FOOT L [...] by: ELIN KENNY Date: 2022-10-22 07:48 [facility] 10-22-2022 Note PROCEDURE: XR FOOT L T 2V HISTORY: Pain COMPARISON: XR foot left 10/21/2022 FINDINGS: BONES:Multiple intraoperative spot fluoroscopic images demonstrate mechanical fusion of the first metatarsophalangeal joint and resection of head of first proximal phalanx. IMPRESSION: 1. Surgical changes of left first toe as detailed above. Electronically authenticated by: ELIN KENNY Date: 2022-10-22 07:46 [facility] 07-31-2022 Note Currently stable [facility] 07-31-2022 Note Hypertension is well controlled 114/64 Continue lisinopril 5 mg Recent CR elevated 1.59- his cr typically has been 1.2-1.4 - He has been on antibiotics for Lt foot infection- DFU with wound care. [facility] 07-31-2022 Note Lipid abnormalities are currently well controlled with lipitor 20 mg- LDL currently 58.6 on labs 07/26/2022 Liver function 04/2022 were normal [facility] 07-31-2022 Note UTP CARDIOLOGY PROGR ESS [...] RTC 1 year or earlier if needed [facility] 07-31-2022 Note Patient here for 6 [...] All other systems reviewed and are negative. [facility] 07-31-2022 Note CONSULTATION PROCEDURE DATE: 07/31/2022 [...] the clinic in three months' time. [facility] 07-25-2022 Note CONSULTATION CONSULTATION DATE: 07/25/2022 HISTORY OF PRESENT ILLNESS: This is a 66-year-old gentleman who presents to the Pain Clinic today with increased lower back pain. The patient does have chronic bilateral knee pain, but he states those are doing quite well. He did receive a left knee steroid injection in April. The patient just recently returned from a [place] vacation, where he visited multiple [employer] mayes and had a lot of increased [...] and will be contacted upon approval. [facility] 07-24-2022 Note PROCEDURE: XR FOOT L [...] by: ELIN KENNY Date: 2022-07-24 10:21 [facility] 06-10-2022 Note PROCEDURE: XR KNEE L T 4V or > HISTORY: Pain in left knee ; chronic left knee pain COMPARISON: XR knee bilateral 05/31/2021 FINDINGS: BONES:Marked narrowing of the medial joint space with suspected yltp-bg-vjkp articulation. Moderate-marked narrowing of the lateral compartment. Mild narrowing of anterior compartment. Small periarticular osteophytes involving the margins of all 3 compartments. No fracture or dislocation. SOFT TISSUES:No visible soft tissue swelling. EFFUSION:Small joint effusion. OTHER: Negative. IMPRESSION: 1. Marked degenerative joint disease. Stable to minimally progressed. Electronically authenticated by: ELIN KENNY Date: 2022-06-10 19:35 [facility] 05-23-2022 Evaluation note Encounter Date Diagnosis [...] Pain in left knee (ICD-10 - M25.562) [facility] 10-11-2022 NoteCONSULTATION CONSULTATION DATE: 04/23/2022 CHIEF [...] the time being. CC: Felisa Berrios M.D.[id number] NoteCONSULTATION CONSULTATION DATE: 04/04/2022 HISTORY OF PRESENT [...] indicated. Patient agreed with plan of care.[id number] Note CONSULTATION CONSULTATION DATE: 02/14/2022 HISTORY OF [...] time unless otherwise indicated. Patient acknowledges understanding.[id number] NoteCONSULTATION PROCEDURE DATE: 02/14/2022 PREOPERATIVE DIAGNOSIS: Bilateral [...] will be followed up in the office.[id number] Evaluation note* Encounter Date Diagnosis Assessment Notes Treatment Notes Treatment Clinical Notes Jul, Pain in right knee (ICD-10 - M25.561) Jul, Arthritis of knee, right (ICD-10 - M17.11) Extensive discussion about current condition and treatment options available. We performed a marcaine / kenalog cortisone injection into the bilateral knee joint under sterile technique. Patient tolerated the injection well without adverse reaction. 25 Elie, 2022 Arthritis of knee, left (ICD-10 - M17.12) Jul, Pain in left knee (ICD-10 - M25.562) [facility] 09-30-2021 Evaluation note* Encounter Date Diagnosis Assessment Notes Treatment Notes Treatment Clinical Notes Mar, Liver hemangioma (ICD-10 - D18.03) Mar, HODGES (nonalcoholic steatohepatitis) (ICD-10 - K75.81) [facility] Other Evaluation + Plan note Future Appointments Appointment Date:11/04/2023 08:30:00 AM Scheduled Provider:LIZ HERNANDEZ PA-C Location:[facility] Appointment Type:URO Office Visit Diagnostic Tests Pending * PSA Total 06/03/23 [facility] History general Narrative - Reported* Type Description Date Medical History DM II Medical History HTN Medical History hyperlipidemia Medical History gout Surgical History knee surgery Surgical History tonsillectomy Surgical History vasectomy Surgical History sinus surgery Surgical History back injections Hospitalization History SEE ABOVE SURGICAL HX [facility] Other Hospital course Narrative No data available for this section [facility] [employer] progress note No data available for this section [facility] Michael Summary Purpose Family History No Family History [...] section and content) DATE CREATED AUTHOR 03/29/2021 [facility] DATE CREATED AUTHOR AUTHOR'S JORYIZ ATION 08/06/2022 [facility] DATE CREATED AUTHOR AUTHOR'S ORGANIZ ATION 12/20/2022 [facility] DATE CREATED AUTHOR AUTHOR'S ORGANIZ ATION 07/05/2023 [facility] DATE CREATED AUTHOR AUTHOR'S ORGANIZ ATION 07/24/2023 [facility] EPIC DATE CREATED AUTHOR AUTHOR'S ORGANIZ ATION 10/28/2023 [facility] REASON FOR VISIT (unrecogniz ed section and content) PT HERE FOR 4 WEEK FOLLOW UP LIVER LESION LABS WERE ORDERED AT LAST OFFICE VISITBilateral Knee PainRecheck Bilateral Knees Patient Care team informatio n (unrecognized section and content) Personnel Name: RUBEN MCGUIRE, FELISA Juarez Address: Address: [address] [place] [id number] FOR RECORDS PERTAINING TO PATIENTS WHO ARE [...] BE BASED ON THE PRIMARY CLINICAL RECORDS. [employer] provides no warranty or guarantee of the accuracy or completeness of information in this document.
--- NOTE | 2023-10-30 09:57 | PM.CN ---
Consult Note: HPI Data of Consult Patient: known to practice within the last 3 years Requesting Physician: Gracie Chaudhry NP Primary Care Provider: Tulio Madrid MD Consult Narrative Reason for consult: f/u Narrative: Warner Caraballo a pleasant 67 year old male presents for evaluation of chronic low back pain. Today rating pain 2/10 in low back. Patient recently underwent bilateral L3,4,5 (L4-5 L5-S1) RFA with >50% ongoing relief of pain in bilateral low back. At worst pain is 4/10 at this time, improved from prior 8/10. Patient continues to find benefit from current medication regimen, with chronic widespread pain he continues to benefit from gabapentin, diclofenac, tramadol. 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 - Fused toes, unspecified foot (ICD-10) Surgical History History of tonsillectomy and adenoidectomy ?Z90.89 - Acquired absence of other organs (ICD-10) S/P right knee arthroscopy ?Z98.890 - Other specified postprocedural states (ICD-10) S/P left knee arthroscopy ?Z98.890 - Other specified postprocedural states (ICD-10) Family History Other Family history of stroke Social History Within the past year, how often did you have a drink containing alcohol: monthly or less Smoking status: Never smoker Non-prescribed substance use: denies use Previous occupational history: RETIRED Highest level of school completed/degree received: high school graduate Meds Home Medications and Allergies Home Medications ?Medication ?Instructions ?Recorded ?Confirmed ?Type acetaminophen 500 mg tablet 1,000 mg PO Q6H PRN pain 01/06/23 06/30/23 History (Acetaminophen Extra Strength) ascorbic acid (vitamin C) 500 mg 500 mg PO BID 01/06/23 06/30/23 History tablet (C-500) atorvastatin 20 mg tablet 20 mg PO DAILY 01/06/23 06/30/23 History cholecalciferol (vitamin D3) 25 1,000 unit PO BID 01/06/23 06/30/23 History mcg (1,000 unit) tablet (Vitamin D3) colchicine 0.6 mg tablet 0.6 mg PO TID 01/06/23 06/30/23 History diclofenac sodium 50 mg 50 mg PO Q12H 01/06/23 06/30/23 History tablet,delayed release febuxostat 40 mg tablet 40 mg PO DAILY 01/06/23 06/30/23 History gabapentin 300 mg capsule 300 mg PO TID 01/06/23 06/30/23 History lisinopril 5 mg tablet 5 mg PO DAILY 01/06/23 06/30/23 History metformin 500 mg tablet,extended 500 mg PO DAILY 01/06/23 06/30/23 History release 24 hr probenecid 500 mg tablet 500 mg PO BID 01/06/23 06/30/23 History semaglutide 1 mg/dose (4 mg/3 mL) 0.5 mg subcut .weekly 01/06/23 06/30/23 History subcutaneous pen injector (Ozempic) tizanidine 4 mg tablet 8 mg PO .hs 01/06/23 06/30/23 History tramadol 50 mg tablet 50 mg PO Q8H 01/06/23 06/30/23 History tramadol 50 mg tablet 50 mg PO TID PRN pain #90 tabs 08/13/23 Rx tramadol 50 mg tablet 50 mg PO TID PRN pain #90 tabs 09/15/23 Rx Allergies Allergy/AdvReac Type Severity Reaction Status Date / Time oxycodone AdvReac Verified 06/30/23 09:31 Exam Constitutional Documenting provider has reviewed patient's vital signs: yes Common normals: no apparent distress, oriented x3, healthy appearing, alert and well nourished General appearance: cooperative HENMT Common normals: normocephalic, hearing grossly normal bilaterally and moist oral mucous membranes Head and scalp: normocephalic Eye Common normals: PERRL Pupil: PERRL Neck & C-Spine Common normals: full ROM General: normal visual inspection Chest Common normals: inspection of chest normal Respiratory Common normals: normal respiratory effort, no retractions and no use of accessory muscles Back & Pelvis Lumbar spine/lower back: pain with ROM, paraspinal muscle tenderness and straight leg raise negative bilaterally Other: bilateral positive facet loading negative pain at L2-3 L3-4 no radiculopathy Extremity Common normals: normal to inspection and full ROM Neuro Common normals: oriented x3, CN's II-XII intact bilaterally, moves all extremities, no focal motor deficits, no sensory deficits noted, deep tendon reflexes 2+ bilaterally and gait normal Sensorium/orientation: alert Motor exam: strength 5/5 throughout and no movement abnormalities noted Psych Common normals: mental status grossly normal, thought process normal, cooperative, affect normal, speech normal and activity/motor behavior normal Speech: normal speech Thought process: normal thought process Assessment and Plan Assessment and Plan (1) Lumbar spondylosis: (2) Myofascial pain: (3) Lumbar stenosis with neurogenic claudication: (4) Chronic, continuous use of opioids: Assessment and Plan: I feel these medications are improving the patient's quality of life and allow them to tolerate activities of daily living as well as participate in recreational activity.? The patient does not report intolerable side effects. The patient is NOT opioid naive and non-pharmacologic and non-opioid treatment has failed to significantly relieve the patient's pain and improve functionality. The patient has a diagnosis that is related to a somatic or visceral pain etiology. ? ?? I reviewed with the patient the potential risks and side effects with the use of? opioid medications including but not limited to respiratory depression,? sedation, and even . I verified the patient has access to naloxone should? these effects occur. I advised the patient to avoid the use of any other? sedation substances including alcohol, THC, and benzodiazepines while? taking opioid medications due to the risk of compounding side effects and? detrimental outcomes. I reviewed the [employer], pain treatment agreement, urine? drug screen, and opioid start talking forms. The patient was advised to let? their family know they had Naloxone in case they would need to administer? the medication.? ?? A drug screen was completed within the last year, and no aberrancies were noted regarding their use of controlled substances. The patient understands they are subject to the terms and conditions of the pain contract that they have signed. ? ?? I have checked an OARRS report on this patient today and there are no aberrancies noted in the prescribing history.? (5) Knee pain: (6) Back pain: Plan start cyclobenzaprine 5-10 mg once daily for myofascial pain, can continue tizanidine 8mg PRN HS continue current medication regimen, tolerating well without side effects and continues to find functional improvement continue HEP as tolerated continue TENS f/u 3 months
== END 2023-10-30 09:15 | disposition home or self-care (01) ==
LOC: PM 09:14
PROVIDERS: PCP Family Medicine; Visit Provider Nurse Practitioner
DX: M47.816 Spondylosis without myelopathy or radiculopathy, lumbar region (principal); M79.10 Myalgia, unspecified site; M48.062 Spinal stenosis, lumbar region with neurogenic claudication; Z79.899 Other long term (current) drug therapy
CPT/HCPCS: G0463

== ENCOUNTER 2024-01-14 09:02 | Outpatient (OUT) | payer BC, SELFPAY ==
[2024-01-14 10:05] LABS: Estimated Average Glucose 108 mg/dL; Glycohemoglobin A1C 5.4 % (4.5-6.2)
[2024-01-14 10:08] LABS: Microalbumin Urine Random 1.3 mg/dL (<=30.0)
== END 2024-01-14 09:03 | disposition home or self-care (01) ==
LOC: LAB 09:03
PROVIDERS: PCP Family Medicine; Visit Provider Family Medicine
DX: E11.65 Type 2 diabetes mellitus with hyperglycemia (principal)
CPT/HCPCS: 36415; 82043; 83036

== ENCOUNTER 2024-02-05 08:48 | Outpatient (OUT) | payer BC, MEDICARE, SELFPAY ==
--- NOTE | 2024-02-05 09:08 | P.CN_ITS ---
Consult Note: HPI Data of Consult Patient: known to practice within the last 3 years Requesting Physician: Gracie Chaudhry NP Primary Care Provider: Tulio Madrid MD Consult Narrative Reason for consult: f/u Narrative: Warner Caraballo a pleasant 67 year old male presents for evaluation of chronic low back pain. Today rating pain 2/10 in low back. Patient recently underwent bilateral L3,4,5 (L4-5 L5-S1) RFA with >50% ongoing relief of pain in bilateral low back. At worst pain is 5/10 at this time, improved from prior 8/10. Patient continues to find benefit from current medication regimen, with chronic widespread pain he continues to benefit from gabapentin, diclofenac, tramadol. 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.20 - Fused toes, unspecified foot (ICD-10) Surgical History History of tonsillectomy and adenoidectomy ?Z90.89 - Acquired absence of other organs (ICD-10) S/P right knee arthroscopy ?Z98.890 - Other specified postprocedural states (ICD-10) S/P left knee arthroscopy ?Z98.890 - Other specified postprocedural states (ICD-10) Family History Other Family history of stroke Social History Within the past year, how often did you have a drink containing alcohol: monthly or less Smoking status: Never smoker Non-prescribed substance use: denies use Previous occupational history: RETIRED Highest level of school completed/degree received: high school graduate Meds Home Medications and Allergies Home Medications ?Medication ?Instructions ?Recorded ?Confirmed ?Type acetaminophen 500 mg tablet 1,000 mg PO Q6H PRN pain 01/06/23 06/30/23 History (Acetaminophen Extra Strength) ascorbic acid (vitamin C) 500 mg 500 mg PO BID 01/06/23 06/30/23 History tablet (C-500) atorvastatin 20 mg tablet 20 mg PO DAILY 01/06/23 06/30/23 History cholecalciferol (vitamin D3) 25 1,000 unit PO BID 01/06/23 06/30/23 History mcg (1,000 unit) tablet (Vitamin D3) colchicine 0.6 mg tablet 0.6 mg PO TID 01/06/23 06/30/23 History diclofenac sodium 50 mg 50 mg PO Q12H 01/06/23 06/30/23 History tablet,delayed release febuxostat 40 mg tablet 40 mg PO DAILY 01/06/23 06/30/23 History gabapentin 300 mg capsule 300 mg PO TID 01/06/23 06/30/23 History lisinopril 5 mg tablet 5 mg PO DAILY 01/06/23 06/30/23 History metformin 500 mg tablet,extended 500 mg PO DAILY 01/06/23 06/30/23 History release 24 hr probenecid 500 mg tablet 500 mg PO BID 01/06/23 06/30/23 History semaglutide 1 mg/dose (4 mg/3 mL) 0.5 mg subcut .weekly 01/06/23 06/30/23 History subcutaneous pen injector (Ozempic) tizanidine 4 mg tablet 8 mg PO .hs 01/06/23 06/30/23 History tramadol 50 mg tablet 50 mg PO Q8H 01/06/23 06/30/23 History tramadol 50 mg tablet 50 mg PO TID PRN pain #90 tabs 08/13/23 Rx tramadol 50 mg tablet 50 mg PO TID PRN pain #90 tabs 09/15/23 Rx tramadol 50 mg tablet 50 mg PO TID PRN pain #90 tabs 11/13/23 Rx tramadol 50 mg tablet 50 mg PO TID PRN pain #90 tabs 12/16/23 Rx Allergies Allergy/AdvReac Type Severity Reaction Status Date / Time oxycodone AdvReac Verified 06/30/23 09:31 Exam Constitutional Documenting provider has reviewed patient's vital signs: yes Common normals: no apparent distress, oriented x3, healthy appearing, alert and well nourished General appearance: cooperative HENMT Common normals: normocephalic, hearing grossly normal bilaterally and moist oral mucous membranes Head and scalp: normocephalic Eye Common normals: PERRL Pupil: PERRL Neck & C-Spine Common normals: full ROM General: normal visual inspection Chest Common normals: inspection of chest normal Respiratory Common normals: normal respiratory effort, no retractions and no use of accessory muscles Back & Pelvis Lumbar spine/lower back: pain with ROM, paraspinal muscle tenderness and straight leg raise negative bilaterally Other: bilateral positive facet loading negative pain at L2-3 L3-4 no radiculopathy Extremity Common normals: normal to inspection and full ROM Neuro Common normals: oriented x3, CN's II-XII intact bilaterally, moves all extremities, no focal motor deficits, no sensory deficits noted and deep tendon reflexes 2+ bilaterally Sensorium/orientation: alert Motor exam: strength 5/5 throughout and no movement abnormalities noted Psych Common normals: mental status grossly normal, thought process normal, cooperative, affect normal, speech normal and activity/motor behavior normal Speech: normal speech Thought process: normal thought process Results Additional Findings Additional findings: If on a controlled substance or opioids, I have checked an OARRS report on this patient and there are no aberrancies noted in the prescribing history.??If on a controlled substance or opioid a drug screen was completed and reviewed within the last year, and if there has not been a drug screen completed we ordered one today to monitor higher risk, state monitored pain medication use. As part of providing excellent, safe, comprehensive care, the following was completed at our patient's visit: 1. A medication reconciliation and review to ensure accurate knowledge of current/active medications, including asking our patients to inform us about any [id number] medications or herbal remedies/nutritional supplements/alternative remedies. 2. A review to specifically ensure our patients have had annual screening for screening for depression, screening for tobacco use, and screening for unhealthy alcohol use. For concerning screenings had a discussion with the patient, provided patient education, and recommended follow-up with primary care provider when appropriate. If patient noted with a risk of falling, they received education on strength, gait, and balance training to prevent future risk of falling. Assessment and Plan Assessment and Plan (1) Lumbar spondylosis: (2) Myofascial pain: (3) Lumbar stenosis with neurogenic claudication: (4) Chronic, continuous use of opioids: Assessment and Plan: I feel these medications are improving the patient's quality of life and allow them to tolerate activities of daily living as well as participate in recreational activity.? The patient does not report intolerable side effects. The patient is NOT opioid naive and non-pharmacologic and non-opioid treatment h as failed to significantly relieve the patient's pain and improve functionality. The patient has a diagnosis that is related to a somatic or visceral pain etiology. ? ?? I reviewed with the patient the potential risks and side effects with the use of? opioid medications including but not limited to respiratory depression,? sedation, and even . I verified the patient has access to naloxone should? these effects occur. I advised the patient to avoid the use of any other? sedation substances including alcohol, THC, and benzodiazepines while? taking opioid medications due to the risk of compounding side effects and? detrimental outcomes. I reviewed the [employer], pain treatment agreement, urine? drug screen, and opioid start talking forms. The patient was advised to let? their family know they had Naloxone in case they would need to administer? the medication.? ?? A drug screen was completed within the last year, and no aberrancies were noted regarding their use of controlled substances. The patient understands they are subject to the terms and conditions of the pain contract that they have signed. ? ?? I have checked an OARRS report on this patient today and there are no aberrancies noted in the prescribing history.? (5) Knee pain: (6) Back pain: Plan continue cyclobenzaprine 5-10 mg once daily PRN for myofascial pain continue current medication regimen, tolerating well without side effects and continues to find functional improvement continue HEP as tolerated continue TENS f/u 3 months
== END 2024-02-05 08:49 | disposition home or self-care (01) ==
PROVIDERS: PCP Family Medicine; Visit Provider Nurse Practitioner
DX: M47.816 Spondylosis without myelopathy or radiculopathy, lumbar region (principal); M79.18 Myalgia, other site; M48.062 Spinal stenosis, lumbar region with neurogenic claudication; Z79.891 Long term (current) use of opiate analgesic; M25.561 Pain in right knee; M25.562 Pain in left knee; M54.50 Low back pain, unspecified
CPT/HCPCS: G0463

== ENCOUNTER 2024-02-11 10:35 | Outpatient (OUT) | payer BC, MEDICARE, SELFPAY ==
--- NOTE | 2024-02-11 | XR_ITS ---
The [address] [address] Patient Name: CARLOS LOCKE MRN: [id number] date: 1955 Sex: M Assigned Patient Location: Current Patient Location: Accession/Order Number: [id number] Exam Date: 02/11/2024 10:36 Report Date: 02/12/2024 06:24 At the request of: TONIO BELL Procedure: XR foot LT min 3V PROCEDURE: XR foot LT min 3V HISTORY: LEFT FOOT PAIN COMPARISON: XR foot left 10/08/2023 FINDINGS: BONES:Prior mechanical fusion of the first metatarsophalangeal joint via dorsal plate and screws. Known fracture of metallic plate with distal fragment displaced 6 mm caudal to the proximal portion of the plate. Stable surgical changes/postoperative changes of distal end of first proximal phalanx. Flattening of plantar arch. SOFT TISSUES:No visible soft tissue swelling. EFFUSION:None visible. OTHER: Negative. XR/XR foot LT min 3V IMPRESSION: 1. Stable fracture of hardware involving prior fusion of the first metatarsophalangeal joint. Electronically authenticated by: ELIN MCCARTNEY Date: 02/12/2024 06:24
--- OUTSIDE RECORDS SUMMARY | 2024-02-11 10:38 | XMS_ITS | CCD ---
Author Organization [facility] Care Team Providers Care Supervisor Dental Laboratory Name Role Phone DominikRacheal hinton Unavailable Ant Alejandra Unavailable BENTLEY MACK Attending [...] ., DR FELISA Juarez Primary Care Unavailable ELTAHAWLiza, DR SALCIDO Attending Unavailable ELTAHAWY, DR SALCIDO Admitting Unavailable BERRIOS ., DR FELISA Juarez Primary Care Unavailable BERRIOS ., DR FELISA Juarez Attending Unavailable BERRIOS ., DR FELISA Juarez Consulting Unavailable BERRIOS ., DR FELISA Juarez Admitting Unavailable BERIROS ., DR FELISA Juarez Attending Unavailable BERRIOS [...] Main Admitting Unavailable JAZMIN MCGREGOR Consulting Unavailable MELY ., DR NATHALY Main Consulting Unavailable BOONE [...] Care Unavailable BERRIOS ., DR FELISA Juarez Admjulio césar Unavailable BERRIOS ., DR FELISA Juarez Primary Care Unavailable WEST, DR RACHEAL Ayala Consulting Unavailable GIEDRAITIS, ANDRIUS Attending Unavailable GIEDRAITIS, ANDRIUS Admitting Unavailable GIEDRAITIS, ANDRIUS Consulting Unavailable BERRIOS ., DR FELISA Juarez Primary Care Unavailable WEST, DR RACHEAL Ayala Consulting Unavailable WEST, DR RACHEAL Ayala Attending Unavailable WEST, DR RACHEAL Ayala Admitting Unavailable ZIEBER, DR ELIN Oliva Consulting Unavailable [...] II, ALEJANDRA Consulting Unavailable TYLERYURI Consulting Unavailable KOOTNIO POPE Consulting Unavailable BERRIOS ., DR FELISA [...] DR NATHALY Main Admitting Unavailable ALEX .RODRIGO Consulting Unavailable WEST, DR RACHEAL Ayala Consulting Unavailable BERRIOS ., DR FELISA Juarez Primary Care Unavailable [facility] STEW[place] Attending Unavailable [facility] Admitting Unavailable [facility] STEWART Consulting Unavailable WEST, DR RACHEAL [...] MCGUIRE, Donaldo Cunningham Attending Unavailable HARINDER RUGGIERO Primary Care Physician LIZ HERNANDEZ Attending Unavailable LIZ HERNANDEZ Attending Unavailable LIZ HERNANDEZ Attending Unavailable HARINDER RUGGIERO Attending Unavailable HARINDER RUGGIERO Attending Unavailable Allergies Allergy Classification Reported Allergen(s) Allergy Type Date of Onset Reaction(s) Facility (3 sources) Acetaminophen / oxyCODONE Drug Allergy Unknown [facility]andal Other (1 source) Acetaminophen / oxyCODONE; Translations: [OXYCODONE-ACETAM INOPHEN] Drug Allergy 3 [facility] Repository (4 sources) oxyCODONE; Translations: [OXYCODONE] Drug Allergy 3 Hyperactive behavior (finding) [facility] Repository (1 source) Acetaminophen / oxyCODONE Drug Allergy [facility] Repository (1 source) oxyCODONE; Translations: [OxyCODONE Hydrochloride] Drug Allergy [facility] Repository Medications Current Medications Medication Drug Class(es) Dates Sig (Normalized) Sig (Original) atorvastatin 20 mg oral tablet (5 sources) HMG-CoA Reductase Inhibitor Start: 04-25-2020 take [...] Baclofen Active colchicine 0.6 mg oral tablet (5 sources) Start: 11-15-2020 take 1 tablet by [...] Date: 11/15/20 Status: Ordered Colchicine Activ e cyclobenzaprine hydrochloride 10 mg oral tablet (1 source) Muscle Relaxant Start: 11-04-2023 cyclobenzaprin e 10 mg Tab Refills(s) 0 Start Date: 11/04/23 Status: Ordered diclofenac sodium 50 mg delayed release oral tablet (3 sources) Nonsteroidal Anti-inflammatory Drug Start: 11-04-2023 diclofenac sodium 50 mg Oral EC Tab Refills(s) 0 Start Date: 11/04/23 Status: Ordered take 1 tablet by debbie th every twelve hours Diclofenac Sodium 50 MG 1 tablet as need ed Orally Twice a day Active febuxostat 40 mg oral tablet (5 sources) Xanthine Oxidase Inhibitor Start: 04-25-2020 take 1 tablet by mouth once daily febuxostat 40 mg oral tablet 40 mg = 1 tab(s), Oral, Daily, # 30 tab(s), Refills(s) 0, Gout pain Start Date: 04/25/20 Status: Ordered Febuxostat Activ e gabapentin 300 mg oral capsule (5 sources) Anti-epileptic Agent Start: 11-15-2020 take 1 capsule by mouth once daily at bedtime gabapentin 300 mg Cap 300 mg = 1 cap(s), Oral, Once a day (at bedtime), # 30 cap(s), Refills(s) 0, Muscle pain Start Date: 11/15/20 Status: Ordered Gabapentin Activ e lisinopril 5 mg oral tablet (5 sources) Angiotensin Converting Enzyme Inhibitor Start: 04-13-2019 take 5 mg by mouth once daily lisinopril 5 mg, Oral, Daily, Refills(s) 0, High blood pressure Start Date: 04/13/19 Status: Ordered Lisinopril Activ e metFORMIN hydrochloride 500 mg oral tablet (5 sources) Biguanide Start: 04-25-2020 take 1 tablet [...] 1.5 ml semaglutide 1.34 mg/ml pen injector (2 sources) Start: 04-24-2021 inject 0.5 mg by subcutaneous [...] 20mg/24hrs, # 20 tab(s), Refills(s) 3, Pharmacy: [facility]/pharmacy #[id number], 188, cm, 06/03/23 10:01:00 EST, Height/Length Dosing, 138, kg, 06/03/23 10:01:00 EST, Weight Dosing Start Date: 06/03/23 Status: Ordered Testosterone Cypionate 200 mg/mL intramuscular solution (2 sources) Start: 06-03-2023 Testosterone Cypionate 200 mg/mL intramuscular solution Refills(s) 0 Start Date: 06/03/23 Status: Ordered traMADol hydrochloride 50 mg oral tablet (5 sources) Opioid Agonist Start: 06-03-2023 traMADOL 50 mg Tab Refills(s) 0 Start Date: 06/03/23 Status: Ordered traMADol HCl Act vitor Vitamin D3 (2 sources) Start: 04-25-2020 Vitamin D3 50, 000 [employer], [...] needed, # 2 tab(s), Refills(s) 0, Pharmacy: [facility]/pharmacy #[id number], 185.4, cm, 12/05/20 11:15:00 EDT, [...] Onset: 3 Chronic Calculus of urinary tract (8 sources) Calculus of kidney; Translations: [Kidney stone] [...] 3 Chronic Genitourinary symptoms and ill-defined conditions (2 sources) Nocturia 04-25-2020 Episodic Gout and other crystal arthropathies (5 sources) Gout, unspecified; Translations: [GOUT UNSPECIFIED] Onset: 2 Chronic Hepatitis (4 sources) Steatohepatitis; Translations: [Nonalcoholic steatohepatitis (HODGES)] Onset: 1 Resolved: 1 Chronic Hyperplasia of prostate (6 sources) Benign prostatic hypertrophy with outflow obstruction; Translations: [Benign prostatic hyperplasia with lower urinary tract symptoms] Onset: 3 Chronic Neoplasms of unspecified nature or uncertain behavior (2 sources) 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 11-30-2020 Episodic Osteoarthritis (11 sources) Arthritis of right knee; Translations: [Unilateral primary osteoarthritis, right knee] Onset: 2 Resolved: 2 Chronic Other aftercare (1 source) shelter (current) use of oral hypoglycemic drugs; Translations: [NURSING HOME USE ORAL HYPOGLYCEMIC DX] Onset: 3 Episodic Other aftercare (1 source) Other long-term (current) drug therapy; Translations: [OTH VENEER TRIMMER CURRENT DRUG THERAPY] Onset: 3 Episodic Other aftercare (2 sources) Long-term current use of anticoagulant 11-17-2020 Episodic Other and unspecified benign neoplasm (2 sources) Benign neoplasm of descending colon 02-01-2021 Episodic Other and unspecified benign neoplasm (2 sources) Benign neoplasm of sigmoid colon 02-01-2021 Episodic Other and unspecified benign neoplasm (2 sources) History of polyp of colon 01-12-2021 Episodic Other connective tissue disease (4 sources) Pain in left foot; Translations: [PAIN IN LEFT FOOT] Onset: 3 Episodic Other connective tissue disease (1 source) Myalgia, other site; Translations: [MYALGIA OTHER SITE] Onset: 3 Episodic Other connective tissue disease (4 sources) Arthrodesis status; Translations: [ARTHRODESIS STATUS] Onset: 3 Episodic Other diseases of kidney and ureters (2 sources) Hydronephrosis co-occurrent and due to calculus of kidney and ureter 04-13-2019 Episodic Other endocrine disorders (2 sources) Testicular hypofunction; Translations: [Testicular hypofunction] Onset: 3 Chronic Other endocrine disorders (2 sources) Male hypogonadism 06-03-2023 Chronic Other liver diseases (3 sources) Lesion of liver; Translations: [Liver disease, unspecified] Chronic Other liver diseases (1 source) Fatty (change of) liver, not elsewhere classified; Translations: [FATTY CHANGE LIVER NEC] Onset: 3 Chronic Other liver diseases (2 sources) Liver mass 11-17-2020 Episodic Other lower respiratory disease (1 source) Personal history of pneumonia (recurrent); Translations: [PERSONAL HX OF PNEUMONIA RECURRENT] Onset: 3 Episodic Other male genital disorders (4 sources) Male erectile dysfunction, unspecified; Translations: [Erectile [...] Chronic Other nutritional; endocrine; and metabolic disorders (2 sources) Body mass index 40+ - severely obese 04-13-2019 Chronic Other nutritional; endocrine; and metabolic disorders (2 sources) Morbid obesity 04-13-2019 Chronic Other screening for suspected conditions (not mental disorders or infectious disease) (4 sources) Encounter for screening for malignant neoplasm of prostate; Translations: [Screening for malignant neoplasm done] Onset: 3 Episodic Other skin disorders (1 source) Corns and callosities; Translations: [CORNS AND CALLOSITIES] Onset: 3 Episodic Other upper respiratory infections (1 source) Acute upper respiratory infection, unspecified; Translations: [ACUTE UP RESPIRATORY INFECTION UNS] Onset: 3 Episodic Pulmonary heart disease (5 sources) Personal history of pulmonary embolism; Translations: [H/O: pulmonary embolus] Onset: 3 Episodic Residual codes; unclassified (1 source) Obstructive sleep apnea (adult) (pediatric); Translations: [OBSTRUCTIVE SLEEP APNEA] Onset: 3 Chronic Residual codes; unclassified (1 source) Family history of cancer; Translations: [Family history of malignant neoplasm of prostate] Onset: 3 Episodic Residual codes; unclassified (2 sources) Family history of prostate cancer 06-03-2023 Episodic Skin and subcutaneous tissue infections (1 source) Cellulitis of left toe; Translations: [CELLULITIS OF LEFT TOE] Onset: 3 Episodic Spondylosis; intervertebral disc disorders; other back problems (7 sources) Spondylosis without myelopathy or radiculopathy, lumbar region; Translations: [Unspecified thoracic, thoracolumbar and lumbosacral intervertebral disc disorder] Onset: 2 Chronic Spondylosis; intervertebral disc disorders; other back problems (6 sources) Muscle spasm of back; Translations: [Backache] Onset: 3 Episodic Unclassified (4 sources) LOW BACK PAIN, UNSPECIFIED; Translations: [LOW BACK PAIN, UNSPECIFIED] Onset: 2 Unclassified (1 source) PERSONAL HISTORY OF COVID-19; Translations: [PERSONAL HISTORY OF COVID-19] Onset: 3 Unclassified (1 source) COUGH, UNSPECIFIED; Translations: [COUGH, UNSPECIFIED] Onset: 3 Unclassified (2 sources) Patient encounter status 06-03-2023 Unclassified (1 source) Measurement finding 11-04-2023 Past or Other Problems Problem Classification Problem [...] Value Interpretation Reference Range Facility [facility] 11-05-2023 Lab Reports [id number]#1.0 0TIFF [facility] Screenson 11-05-2023 Screens [id number]. 00TIFF [facility] Screens [id number]. 00TIFF [facility] Patient Educationon 11-04-19 Patient Education Urology Erectile Dysfunction Erectile dysfunction (ED) is the inability to get or keep an erection in order to have sexual intercourse. ED is considered a symptom of an underlying disorder and is not considered a disease. ED may include: ? Inability to get an erection. ? Lack of enough hardness of the erection to allow penetration. ? Loss of erection before sex is finished. What are the causes? This condition may be caused by: ? Physical causes, such as: ? Artery problems. This may include heart disease, high blood pressure, atherosclerosis, and diabetes. ? Hormonal problems, such as low testosterone. ? Obesity. ? Nerve problems. This may include back or pelvic injuries, multiple sclerosis, Parkinson's disease, spinal cord injury, and stroke. ? Certain medicines, such as: ? Pain relievers. ? Antidepressants. ? Blood pressure medicines and water pills (diuretics). ? Cancer medicines. ? Antihistamines. ? Muscle relaxants. ? Lifestyle factors, such as: ? Use of drugs such as marijuana, cocaine, or opioids. ? Excessive use of alcohol. ? Smoking. ? Lack of physical activity or exercise. ? Psychological causes, such as: ? Anxiety or stress. ? Sadness or depression. ? Exhaustion. ? Fear about sexual performance. ? Guilt. What are the signs or symptoms? Symptoms of this condition include: ? Inability to get an erection. ? Lack of enough hardness of the erection to allow penetration. ? Loss of the erection before sex is finished. ? Sometimes having normal erections, but with frequent unsatisfactory episodes. ? Low sexual satisfaction in either partner due to erection problems. ? A curved penis occurring with erection. The curve may cause pain, or the penis may be too curved to allow for intercourse. ? Never having nighttime or morning erections. How is this diagnosed? This condition is often diagnosed by: ? Performing a physical exam to find other diseases or specific problems with the penis. ? Asking you detailed questions about the problem. ? Doing tests, such as: ? Blood tests to check for diabetes mellitus or high cholesterol, or to measure hormone levels. ? Other tests to check for underlying health conditions. ? An ultrasound exam to check for scarring. ? A test to check blood flow to the penis. ? Doing a sleep study at home to measure nighttime erections. How is this treated? This condition may be treated by: ? Medicines, such as: ? Medicine taken by mouth to help you achieve an erection (oral medicine). ? Hormone replacement therapy to replace low testosterone levels. ? Medicine that is injected into the penis. Your health care provider may instruct you how to give yourself these injections at home. ? Medicine that is delivered with a short applicator tube. The tube is inserted into the opening at the tip of the penis, which is the opening of the urethra. A tiny pellet of medicine is put in the urethra. The pellet dissolves and enhances erectile function. This is also called MUSE (medicated urethral system for erections) therapy. ? Vacuum pump. This is a pump with a ring on it. The pump and ring are placed on the penis and used to create pressure that helps the penis become erect. ? Penile implant surgery. In this procedure, you may receive: ? An inflatable implant. This consists of cylinders, a pump, and a reservoir. The cylinders can be inflated with a fluid that helps to create an erection, and they can be deflated after intercourse. ? A semi-rigid implant. This consists of two silicone rubber rods. The rods provide some rigidity. They are also flexible, so the penis can both curve downward in its normal position and become straight for sexual intercourse. ? Blood vessel surgery to improve blood flow to the penis. During this procedure, a blood vessel from a different part of the body is placed into the penis to allow blood to flow around (bypass) damaged or blocked blood vessels. ? Lifestyle changes, such as exercising more, losing weight, and quitting smoking. Follow these instructions at home: Medicines ? Take [id number] and prescription medicines only as told by your health care provider. Do not increase the dosage without first discussing it with your health care provider. ? If you are using self-injections, do injections as directed by your health care provider. Make sure you avoid any veins that are on the surface of the penis. After giving an injection, apply pressure to the injection site for 5 minutes. ? Talk to your health care provider about how to prevent headaches while taking ED medicines. These medicines may cause a sudden headache due to the increase in blood flow in your body. General instructions ? Exercise regularly, as directed by your health care provider. Work with your health care provider to lose weight, if needed. ? Do not use any products that contain nicotine or tobacco. These products include cig (more content not included)... [facility] Urology Office/Clinic Noteon 11-04-2023 Urology Office/Clinic Note Chief Complaint 6m PSA HPI Staff 6m PSA DX: Kidney Stone, Fam Hx of Prostate Cancer (father), ED, BPH & Hypogonadism *Began Tadalafil 10-20mg prn at time of last encounter. Also gets Testosterone Inj w/PCP 200mg PSA 10/27/23- 1.40 Pt states he is unable to provide urine specimen due to voiding at home prior to appt. Did try Tadalafil, states he does not need it. Would like to discuss. Denies difficulty voiding. Denies sx of kidney stone. History of Present Illness staff HPI reviewed and agree. Review of Systems PHQ Score Initial Depression Screen Score: 0 SCORE no fever, chills, malaise, myalgia. no rash/lesions. no chest pain, palpitations, or SOB. no abdominal pain, nausea, vomiting. no unilateral calf swelling, redness, pain Physical Exam Vitals & Measurements HR: 80(Peripheral) RR: 16 BP: 131/82 HT: 74 in HT: 188 cm WT: 136.5 kg WT: 300.3 lb BMI: 38.62 General: nontoxic, NAD Mouth: moist mucosa Lungs: normal respiratory effort Cardio: regular rate, good distal perfusion Abdomen: nondistended, no suprapubic distention or tenderness, no CVA tenderness Neurologic: Grossly normal Skin: No rashes or suspicious lesions Assessment/Plan Prior DLS pt here with his today. 1. Increased prostate specific antigen (PSA) velocity (R97.20: Elevated prostate specific antigen [PSA]) PSA 04/17/20 - 0.73 10/09/20 - 0.51 05/03/22 - 0.57 05/27/23 - 1.46 07/25/23 - 1.07 (ordered by PCP) 10/27/23 - 1.40 PSA nearly tripled btwn fall 2021 and fall 2022 so I have him return today for 6 mo repeat PSA which is stable. PCP also checked another PSA in the meantime which was down almost half a point, so looks like his PSA may wander a bit. Pt is on T replacement so need to watch his PSA trends closely. -PSA in 1 year (will need order at next OV) 2. ED (erectile dysfunction) (N52.9: Male erectile dysfunction, unspecified) DEONNA 5 (19). Started on Tadalafil 10-20 mg prn at prior OV. states pt did not need this. Reports he is able to achieve an erection and maintain and erection wo Tadalafil. His issue is that he is unable to reach climax. Pt has pretty severe neuropathy - not just confined to toes but extending into feet and legs. On gabapentin and several other pain meds through Pain Management. Admits he has decreased sensation with sexual activity. Recommended pt to discuss med regimen with pain management. Thoroughly counseled pt on pathophysiology and discussed alternative treatment options but that efficacy may be limited. Not interested in options at this time. -D/c Tadalafil Ordered: E&M of Est. Patient Moderate 30-39 Min 92747 3. Kidney calculi (N20.0: Calculus of kidney) CT AP wo/w con 11/01/20 [facility] - R renal stones, measuring up to 7mm KUB 05/27/22 [facility] - two R renal stones, measuring about 10mm. KUB 05/27/23 [facility] - R renal stones measuring up to 8mm. No recent stone episodes, flank pain, gross hematuria. Stones have been holding stable. Wants to avoid surgery if possible. Will obtain imaging for next appt. -KUB in 6 mos Ordered: E&M of Est. Patient Moderate 30-39 Min 43036 XR Abdomen 1 View 4. BPH with urinary obstruction (N40.1: Benign prostatic hyperplasia with lower urinary tract symptoms) IPSS 2 (2), QoL 0 (0). Not currently taking any BPH meds. No sample provided for UA today. Not voicing any urinary habit complaints. Ordered: Body Mass Index (BMI) documented 3008F Current tobacco non-user 1036F Depression Screening Negative 3352F Discharge medications reconciled with current medications in outpatient record 1111F E&M of Est. Patient Moderate 30-39 Min 55447 Influenza immunization status assessed 1030F Medication list documented in medical record 1159F Most recent diastolic blood pressure 80-89 mm Hg 3079F Review of all meds by a prescribing practitioner or clinical pharmacist documented in EHR 1160F Systolic BP 130-139 mm Hg (Most Recent) 3075F 5. Hypogonadism male (E29.1: Testicular hypofunction) Gets testosterone inj 200mg per PCP. [1] Ordered: E&M of Est. Patient Moderate 30-39 Min 71599 Follow-up With When Contact Information LIZ HERNANDEZ PA-C, URL [address] [facility] [place] [address] [phone] Additional Instructions: 6 mos w/ KUB Patient Education Erectile Dysfunction Documentation recorded by the sariah Burr accurately reflects the services(s) I performed and decisions made by me. Authenticated by Liz Hernandez PA-C on 11/04/2023 10:26:08. IMaru, personally scribed for Liz Hernandez PA-C on 11/04/2023 09:31:27. . Problem List/Past Medical History Ongoing Abnormal abdominal CT scan BMI 40.0-44.9, adult BPH with urinary obstruction Chronic anticoagulation [place] ED (erectile dysfunction) Enlarged prostate with urinary obstruction Family history of prostate cancer in father History of pulmonary embolism [place] (more content not included)... [facility] Comment on above: Result Comment: Elec tronically Signed By: LIZ HERNANDEZ PA-C\.br\Date and Time Signed: 11/04/23 10:26 EDT\.br\Electronically Co-Signed By: Maru Burr\.clau\Date and Time Co-Signed: 11/04/23 09:31 EDT [facility] 10-27-2023 Lab Reports [id number] 0TIFF [facility] 07-01-2023 Lab Reports [id number]#1. 00TIFF [facility] RAD - MISCon 06-04-2023 RAD - MISC [id number]#1.00 TIFF [facility] Screenson 06-04-2023 Screens [id number]. 00TIFF [facility] Patient Educationon 06-03-20 Patient Education Oncology [...] Where to find more information ? [employer] [place] [employer]: www.cancer.org ? [place] [employer]: www.auanet.org Contact a health care [...] adds flu (more content not included)... [facility] Urology Office/Clinic Noteon 06-03-2023 Urology Office/Clinic [...] When Contact Information LIZ HERNANDEZ PA-C, URL [address] [place] [address] [phone] Additional Instructions: 6 mos w/ PSA Patient [...] guided bi (more content not included)... [facility] Comment on above: Result Comment: Elec tronically Signed By: LIZ HERNANDEZ PA-C\.br\Date and Time Signed: 06/03/23 11:48 EST\.br\Electronically Co-Signed By: Maru Burr\.br\Date and Time Co-Signed: 06/03/23 10:26 EST Immunization Recordson 04-23 Immunization Records [id number]. 00TIFF [facility] Consultation Noteon 04-15-20 Consultation Note [id number]#1.0 0CD:127 [facility] RAD - MISCon 12-24-2022 RAD - MISC [id number] CD:127 [facility] XR LSPINE W_OBLS AND FLEX_EX Ton [...] by: RACHEAL GRAVES Date: 2022-12-05 09:46 [facility] Consultation Noteon 12-05-19 Consultation Note [id number] 0CD:127 [facility] CBC AUTO DIFFon 10-21-2022 BASO # 0.1 103/ul Normal 0.0-0.1 [facility] Comment on above: Performed By: #### P OCGLUC #### [facility] [address] [address] [address] Juliet García Basophils/100 WBC (Bld) 0.7 % Normal 0.2-2.0 [facility] Comment on above: Performed By: #### P OCGLUC #### [facility] [address] [address] [address] Juliet García EO # 0.4 103/ul Normal 0.0-0.7 [facility] Comment on above: Performed By: #### P OCGLUC #### [facility] [address] [place] [address] Dr. Juliet García Eosinophils/100 WBC (Bld) 5.3 % Normal 0.9-7.0 [facility] Comment on above: Performed By: #### P OCGLUC #### [facility] [address] [place] [address] Dr. Juliet García Erythrocyte distribution width (RBC) [Ratio] 14.0 % Normal 11.0-15.0 [facility] Comment on above: Performed By: #### P OCGLUC #### [facility] [address] [place] [address] Dr. Juliet García Hematocrit (Bld) [Volume fraction] 43.6 % Normal 42.0-54.0 [facility] Comment on above: Performed By: #### P OCGLUC #### [facility] [address] [place] [address] Dr. Juliet García Hemoglobin (Bld) [Mass/Vol] 14.9 g/dL Normal 14.0-18.0 [facility] Comment on above: Performed By: #### P OCGLUC #### [facility] [address] [place] [address] Dr. Juliet García IG # 0.03 10e3/ul Normal 0.00-0.03 [facility] Comment on above: Performed By: #### P OCGLUC #### [facility] [address] [place] [address] Dr. Juliet García IG % 0.4 % Normal 0.0-0.5 [facility] Comment on above: Performed By: #### P OCGLUC #### [facility] [address] [place] [address] Dr. Juliet García LYMPH # 2.0 103/ul Normal 1.2-3.8 [facility] Comment on above: Performed By: #### P OCGLUC #### [facility] [address] [place] [address] Dr. Juliet García Lymphocytes/100 WBC (Bld) 29.3 % Normal 20.5-60.0 [facility] Comment on above: Performed By: #### P OCGLUC #### [facility] [address] [place] [address] Dr. Juliet García MANUAL DIFF REQ NO Normal [facility] [place] Comment on above: Performed By: #### P OCGLUC #### [facility] [address] [place] [address] Dr. Juliet García MCH (RBC) [Entitic mass] 33.4 pg Normal 25.9-34.0 [facility] Comment on above: Performed By: #### P OCGLUC #### [facility] [address] [place] [address] Dr. Juliet García MCHC (RBC) [Mass/Vol] 34.2 g/dL Normal 29.9-35.2 [facility] Comment on above: Performed By: #### P OCGLUC #### [facility] [address] [place] [address] Dr. Juliet García MCV (RBC) [Entitic vol] 97.8 fL Critically high 80.0-94.0 [facility] Comment on above: Performed By: #### P OCGLUC #### [facility] [address] [place] [address] Dr. Juliet García MONO # 0.7 103/ul Normal 0.3-0.8 [facility] Comment on above: Performed By: #### P OCGLUC #### [facility] [address] [place] [address] Dr. Juliet García Monocytes/100 WBC (Bld) 9.9 % Normal 1.7-12.0 [facility] Comment on above: Performed By: #### P OCGLUC #### [facility] [address] [place] [address] Dr. Juliet García NEUT # 3.7 103/ul Normal 1.4-6.5 [facility] Comment on above: Performed By: #### P OCGLUC #### [facility] [address] [place] [address] Dr. Juliet García Neutrophils/100 WBC (Bld) 54.4 % Normal 43.0-75.0 [facility] Comment on above: Performed By: #### P OCGLUC #### [facility] [address] [address] [address] Juliet García Platelet mean volume (Bld) [Entitic vol] 9.0 fL Critically low 9.5-13.5 [facility] Comment on above: Performed By: #### P OCGLUC #### [facility] [address] [address] [address] Juliet García PLT 211 103/ul Normal 150-450 [facility] Comment on above: Performed By: #### P OCGLUC #### [facility] [address] [address] [address] Juliet García RBC 4.46 106/ul Critically low 4.70-6.10 [facility] [place] Comment on above: Performed By: #### P OCGLUC #### [facility] [address] [address] [address] Juliet García WBC 6.8 103/ul Normal 4.0-11.0 [facility] Comment on above: Performed By: #### P OCGLUC #### [facility] [address] [address] [address] Juliet García POINT OF CARE GLUCOSEon 10-12 Glucose [Mass/Vol] 100 mg/dL Normal 74-106 [facility] Comment on above: Performed By: #### P OCGLUC #### [facility] [address] [address] [address] Juliet García Glucose [Mass/Vol] 94 mg/dL Normal 74-106 [facility] Comment on above: Performed By: #### A 1C #### [facility] [address] [address] [address] Juliet García PROF CHEM 8 (BAS METB)on Anion gap [Moles/Vol] 14.0 mmol/L Normal [facility] Comment on above: Performed By: #### B MP #### [facility] [address] [address] [address] Juliet García Calcium [Mass/Vol] 9.0 mg/dL Normal 8.5-10.1 [facility] Comment on above: Performed By: #### B MP #### [facility] [address] [address] [address] Juliet García Chloride [Moles/Vol] 107 mmol/L Normal 98-107 [facility] Comment on above: Performed By: #### B MP #### [facility] [address] [address] [address] Juliet García CO2 [Moles/Vol] 28.7 mmol/L Normal 21.0-32.0 [facility] Comment on above: Performed By: #### B MP #### [facility] [address] [place] [address] Dr. Juliet García Creatinine [Mass/Vol] 1.41 mg/dL Critically high 0.70-1.30 [facility] Comment on above: Performed By: #### B MP #### [facility] [address] [address] [address] Juliet García EGFR-AF NICARAGUAN >60 Normal >=60 [facility] Comment on above: Performed By: #### B MP #### [facility] [address] [place] [address] Dr. Juliet García EGFR-NON AF NICARAGUAN 50 mL/min/1.73m2 Critically low >=60 [facility] Comment on above: Performed By: #### B MP #### [facility] [address] [address] [address] Juliet García Glucose [Mass/Vol] 95 mg/dL Normal 74-106 [facility] Comment on above: Performed By: #### B MP #### [facility] [address] [address] [address] Juliet García Potassium [Moles/Vol] 4.7 mmol/L Normal 3.5-5.1 [facility] Comment on above: Performed By: #### B MP #### [facility] [address] [place] [address] Dr. Juliet García Sodium [Moles/Vol] 145 mmol/L Normal 136-145 [facility] Comment on above: Performed By: #### B MP #### [facility] [address] [place], [place] [address] Dr. Juliet García Urea nitrogen [Mass/Vol] 25.0 mg/dL Critically high 7.0-18.0 [facility] Comment on above: Performed By: #### B MP #### [facility] [address] [place], [place] [address] Dr. Juliet García Urea nitrogen/Creatinine [Mass ratio] 17.7 mg/mg Normal [facility] Comment on above: Performed By: #### B MP #### [facility] [address] [place], [place] [address] Dr. Juliet García Office Visiton 07-31-2022 Follow-up visit [id number] Carlos Locke 1955 M Date Provider Department Center 07/31/2022 BENTLEY MENDOZA [facility] Family History Problem Relation Age of Onset Stroke Father Family Status - Relation Status Age at Father Level of Service:13603 DE OFFICE/OUTPATIENT ESTABLISHED MOD MDM 30-39 MIN Reason for Visit and Comments: Hyperlipidemia [182] Hypertension [673171] history of PE [Other] Normal [facility] CULTURE WOUNDon 07-24-2022 CULTURE WOUND Culture Observations : No growth of anaerobes at 72 hours. Isolate 1 Stenotrophomonas maltophilia Moderate growth of ORGANISM 1 Stenotrophomonas maltophilia ANTIBIOTIC M.I.C RX STATUS Levofloxacin 1 S F Trimethoprim/Sulfameth oxazole <=20 S F Normal [facility] Comment on above: Performed By: #### W OUNDCX ####[facility] [address] [place], [place] [address]KbDr. Juliet García GLYCOHEMOGLOBIN A1Con 2022 ADA RECOMMENDATION SEE BELOW Normal [facility] Comment on above: Result Comment: ADA RECOMMENDED LIMIT 4.0 - 6.0 ADA THERAPEUTIC TARGET < 7.0 ACTION SUGGESTED > 7.0 Performed By: #### A 1C #### [facility] [address] [place], [place] [address] Dr. Juliet García Glucose [Mass/Vol] 111 mg/dL Normal [facility] Comment on above: Performed By: #### A 1C #### [facility] [address] [address] [address] Juliet García HbA1c (Bld) [Mass fraction] 5.5 % Normal 4.5-6.2 [facility] Comment on above: Performed By: #### A 1C #### [facility] [address] [address] [address] Juliet García ECHOCARDIO M/2D COMPLETEon 1 08-29-2021 ECHOCARDIO M/2D COMPLETE Patient: CARLOS LOCKE Exam Date: 06/28/2022 : 1955 Gender:M Ordering : DR LOLY BARNARD M.D. Admission #: [id number] Family : Order #: [id number] CLICK HERE TO VIEW EXAM ECHOCARDIOGRAM REPORT [...] M.D. on 07/04/2022 at 13:38 Normal [facility] URIC ACID SERUMon 06-10-2022 Urate [Mass/Vol] 6.9 mg/dL Normal 3.5-7.2 [facility] Comment on above: Performed By: #### A 1C #### [facility] [address] [place] [address] Dr. Juliet García XR KUB 1 VIEWon [...] RACHEAL GRAVES Date: 2022-05-28 07:31 Normal [facility] CBC AUTO DIFFon 05-03-2022 BASO # 0.1 103/ul Normal 0.0-0.1 [facility] Comment on above: Performed By: #### C BC #### [facility] [address] [address] [address] Juliet García Basophils/100 WBC (Bld) 0.9 % Normal 0.2-2.0 [facility] Comment on above: Performed By: #### C BC #### [facility] [address] [address] [address] Juliet García EO # 0.4 103/ul Normal 0.0-0.7 [facility] Comment on above: Performed By: #### C BC #### [facility] [address] [address] [address] Juliet García Eosinophils/100 WBC (Bld) 5.2 % Normal 0.9-7.0 [facility] Comment on above: Performed By: #### C BC #### [facility] [address] [address] [address] Juliet García Erythrocyte distribution width (RBC) [Ratio] 13.6 % Normal 11.0-15.0 [facility] Comment on above: Performed By: #### C BC #### [facility] [address] [address] [address] Juliet García Hematocrit (Bld) [Volume fraction] 40.5 % Critically low 42.0-54.0 [facility] Comment on above: Performed By: #### C BC #### [facility] [address] [address] [address] Juliet García Hemoglobin (Bld) [Mass/Vol] 13.7 g/dL Critically low 14.0-18.0 [facility] Comment on above: Performed By: #### C BC #### [facility] [address] [place] [address] Dr. Juliet García IG # 0.02 10e3/ul Normal 0.00-0.03 [facility] Comment on above: Performed By: #### C BC #### [facility] [address] [place] [address] Dr. Juliet García IG % 0.3 % Normal 0.0-0.5 [facility] Comment on above: Performed By: #### C BC #### [facility] [address] [place] [address] Dr. Juliet García LYMPH # 1.9 103/ul Normal 1.2-3.8 [facility] Comment on above: Performed By: #### C BC #### [facility] [address] [place] [address] Dr. Juliet García Lymphocytes/100 WBC (Bld) 27.7 % Normal 20.5-60.0 [facility] Comment on above: Performed By: #### C BC #### [facility] [address] [place] [address] Dr. Juliet García MANUAL DIFF REQ NO Normal [facility] [place] Comment on above: Performed By: #### C BC #### [facility] [address] [place] [address] Dr. Juliet García MCH (RBC) [Entitic mass] 33.3 pg Normal 25.9-34.0 [facility] Comment on above: Performed By: #### C BC #### [facility] [address] [place] [address] Dr. Juliet García MCHC (RBC) [Mass/Vol] 33.8 g/dL Normal 29.9-35.2 [facility] Comment on above: Performed By: #### C BC #### [facility] [address] [place] [address] Dr. Juliet García MCV (RBC) [Entitic vol] 98.3 fL Critically high 80.0-94.0 [facility] Comment on above: Performed By: #### C BC #### [facility] [address] [address] [address] Juliet García MONO # 0.7 103/ul Normal 0.3-0.8 [facility] Comment on above: Performed By: #### C BC #### [facility] [address] [address] [address] Juliet García Monocytes/100 WBC (Bld) 9.9 % Normal 1.7-12.0 [facility] Comment on above: Performed By: #### C BC #### [facility] [address] [place] [address] Dr. Julite García NEUT # 3.8 103/ul Normal 1.4-6.5 [facility] Comment on above: Performed By: #### C BC #### [facility] [address] [place] [address] Dr. Juliet García Neutrophils/100 WBC (Bld) 56.0 % Normal 43.0-75.0 [facility] Comment on above: Performed By: #### C BC #### [facility] [address] [place] [address] Dr. Juliet García Platelet mean volume (Bld) [Entitic vol] 9.0 fL Critically low 9.5-13.5 [facility] Comment on above: Performed By: #### C BC #### [facility] [address] [place] [address] Dr. Juliet García PLT 201 103/ul Normal 150-450 [facility] Comment on above: Performed By: #### C BC #### [facility] [address] [place] [address] Dr. Juliet García RBC 4.12 106/ul Critically low 4.70-6.10 [facility] Comment on above: Performed By: #### C BC #### [facility] [address] [place] [address] Dr. Juliet García WBC 6.7 103/ul Normal 4.0-11.0 [facility] Comment on above: Performed By: #### C BC #### [facility] [address] [place] [address] Dr. Juliet García GLYCOHEMOGLOBIN A1Con 2021 ADA RECOMMENDATION SEE BELOW Normal [facility] Comment on above: Result Comment: ADA RECOMMENDED LIMIT 4.0 - 6.0 ADA THERAPEUTIC TARGET < 7.0 ACTION SUGGESTED > 7.0 Performed By: #### A 1C #### [facility] [address] [place] [address] Dr. Juliet Gracía Glucose [Mass/Vol] 108 mg/dL Normal [facility] Comment on above: Performed By: #### A 1C #### [facility] [address] [place] [address] Dr. Juliet García HbA1c (Bld) [Mass fraction] 5.4 % Normal 4.5-6.2 [facility] Comment on above: Performed By: #### A 1C #### [facility] [address] [place] [address] Dr. Juliet García LIPID PROFILEon 05-03-2022 CHOL-HDL RATIO NORM SEE BELOW Normal [facility] Comment on above: Result Comment: 3.3 - 4.4 LOW RISK 4.4 - 7.1 AVERAGE RISK 7.1 - 11.0 MODERATE RISK >11.0 HIGH RISK Performed By: #### L IPID, CMP #### [facility] [address] [place] [address] Dr. Juliet García Cholesterol [Mass/Vol] 154 mg/dL Normal <=200 [facility] Comment on above: Performed By: #### L IPID, CMP #### [facility] [address] [place] [address] Dr. Juliet García Cholesterol in HDL [Mass/Vol] 29 mg/dL Critically low 40-60 [facility] Comment on above: Performed By: #### L IPID, CMP #### [facility] [address] [place] [address] Dr. Juliet García Cholesterol in LDL [Mass/Vol] 64.2 mg/dL Normal [facility] Comment on above: Performed By: #### L IPID, CMP #### [facility] [address] [place] [address] Dr. Juliet García Cholesterol.total/Ch olesterol in HDL [Mass ratio] 5.3 {ratio} Normal [facility] Comment on above: Performed By: #### L IPID, CMP #### [facility] [address] [address] [address] Juliet García HDL NORMAL > or = 60 mg/dl - LO W CARDIOVASCULAR RISK <40 mg/dl - HIGH CARDIOVASCULAR RISK Normal [facility] Comment on above: Performed By: #### L IPID, CMP #### [facility] [address] [place] [address] Dr. Julite García LDL CALC NORMAL SEE BELOW Normal [facility] [place] Comment on above: Result Comment: <100 mg/dl OPTIMAL 100 - 129 mg/dl NEAR OR ABOVE OPTIMAL 130 - 159 mg/dl BORDERLINE HIGH 160 - 189 mg/dl HIGH >190 mg/dl VERY HIGH Performed By: #### L IPID, CMP #### [facility] [address] [place] [address] Dr. Juliet García Triglyceride [Mass/Vol] 304 mg/dL Critically high <=150 [facility] Comment on above: Performed By: #### L IPID, CMP #### [facility] [address] [place] [address] Dr. Juliet García VLDL CALC 60.8 mg/dL Normal [facility] Comment on above: Performed By: #### L IPID, CMP #### [facility] [address] [place] [address] Dr. Juliet García PROF 14(COMP METB)on 022 Albumin [Mass/Vol] 3.7 g/dL Normal 3.4-5.0 [facility] Comment on above: Performed By: #### L IPID, CMP #### [facility] [address] [place] [address] Dr. Juliet García Albumin/Globulin [Mass ratio] 1.1 {ratio} Normal [facility] Comment on above: Performed By: #### L IPID, CMP #### [facility] [address] [place] [address] Dr. Juliet García ALP [Catalytic activity/Vol] 87 U/L Normal 46-116 [facility] Comment on above: Performed By: #### L IPID, CMP #### [facility] [address] [place] [address] Dr. Juliet García ALT [Catalytic activity/Vol] 52 U/L Normal 16-63 [facility] Comment on above: Performed By: #### L IPID, CMP #### [facility] [address] [address] [address] Juliet García Anion gap [Moles/Vol] 11.5 mmol/L Normal [facility] Comment on above: Performed By: #### L IPID, CMP #### [facility] [address] [place] [address] Dr. Juliet García AST [Catalytic activity/Vol] 27 U/L Normal 15-37 [facility] Comment on above: Performed By: #### L IPID, CMP #### [facility] [address] [place] [address] Dr. Juliet García Bilirubin [Mass/Vol] 0.4 mg/dL Normal 0.2-1.0 [facility] Comment on above: Performed By: #### L IPID, CMP #### [facility] [address] [place] [address] Dr. Juliet García Calcium [Mass/Vol] 8.7 mg/dL Normal 8.5-10.1 [facility] Comment on above: Performed By: #### L IPID, CMP #### [facility] [address] [place] [address] Dr. Juliet García Chloride [Moles/Vol] 106 mmol/L Normal 98-107 [facility] Comment on above: Performed By: #### L IPID, CMP #### [facility] [address] [place] [address] Dr. Juliet García CO2 [Moles/Vol] 28.2 mmol/L Normal 21.0-32.0 [facility] Comment on above: Performed By: #### L IPID, CMP #### [facility] [address] [place] [address] Dr. Juliet García Creatinine [Mass/Vol] 1.21 mg/dL Normal 0.70-1.30 [facility] Comment on above: Performed By: #### L IPID, CMP #### [facility] [address] [place] [address] Dr. Juliet García EGFR-AF NICARAGUAN >60 Normal >=60 [facility] Comment on above: Performed By: #### L IPID, CMP #### [facility] [address] [place] [address] Dr. Juliet García EGFR-NON AF NICARAGUAN =60 Normal >=60 [facility] Comment on above: Performed By: #### L IPID, CMP #### [facility] [address] [place] [address] Dr. Juliet García Globulin (S) [Mass/Vol] 3.4 g/dL Normal [facility] Comment on above: Performed By: #### L IPID, CMP #### [facility] [address] [place] [address] Dr. Juliet García Glucose [Mass/Vol] 100 mg/dL Normal 74-106 [facility] Comment on above: Performed By: #### L IPID, CMP #### [facility] [address] [place] [address] Dr. Juliet García Potassium [Moles/Vol] 4.7 mmol/L Normal 3.5-5.1 [facility] Comment on above: Performed By: #### L IPID, CMP #### [facility] [address] [place] [address] Dr. Juliet García Protein [Mass/Vol] 7.1 g/dL Normal 6.4-8.2 [facility] Comment on above: Performed By: #### L IPID, CMP #### [facility] [address] [place] [address] Dr. Jluiet García Sodium [Moles/Vol] 141 mmol/L Normal 136-145 [facility] Comment on above: Performed By: #### L IPID, CMP #### [facility] [address] [place] [address] Dr. Juliet García Urea nitrogen [Mass/Vol] 23.0 mg/dL Critically high 7.0-18.0 [facility] Comment on above: Performed By: #### L IPID, CMP #### [facility] [address] [place], [place] [address] Dr. Juliet García Urea nitrogen/Creatinine [Mass ratio] 19.0 mg/mg Normal [facility] Comment on above: Performed By: #### L IPID, CMP #### [facility] [address] [place], [place] [address] Dr. Juliet García VC CONSULT FOLLOWUPon 2021 VC CONSULT FOLLOWUP Patient: CARLOS LOCKE Exam Date: 04/08/2022 : 1955 Gender:M Ordering : DR RACHEAL GRAVES M.D. Admission #: [id number] Family : Order #: [id number] CLICK HERE [...] Racheal Graves MD on 04/08/2022 at 11:30 [facility] VC EXT VENOUS RT LIMITEDon 0 04-08-2022 VC EXT VENOUS RT LIMITED Patient: CORNELIACARLOSRusty Exam Date: 04/08/2022 : 1955 Gender:M Ordering : DR RACHEAL GRAVES M.D. Admission #: [id number] Family : Order #: [id number] CLICK HERE TO VIEW EXAM RADIOLOGY REPORT [...] Graves MD on 04/08/2022 at 11:31 Normal [facility] VC INJ FOAM SCLERO W US MLTI on 04-03-2022 VC INJ FOAM SCLERO W US MLTI Patient: CORNELIA CARLOS [place] Exam Date: 04/03/2022 : 1955 Gender:M Ordering : DR RACHEAL GRAVES M.D. Admission #: [id number] Family : DR NATHALY Ojeda Order #: [id number] CLICK HERE TO VIEW EXAM RADIOLOGY REPORT [...] av (more content not included)... Normal [facility] VC CONSULT FOLLOWUPon 2021 VC CONSULT FOLLOWUP Patient: CARLOS LOCKE Exam Date: 03/25/2022 : 1955 Gender:M Ordering : DR RACHEAL GRAVES M.D. Admission #: [id number] Family : Order #: [id number] CLICK HERE TO VIEW EXAM RADIOLOGY REPORT [...] Kenny M.D. on 03/25/2022 at 08:41 Normal [facility] VC EXT VENOUS RT LIMITEDon 0 03-25-2022 VC EXT VENOUS RT LIMITED Patient: CARLOS LOCKE Exam Date: 03/25/2022 : 1955 Gender:M Ordering : DR RACHEAL GRAVES M.D. Admission #: [id number] Family : Order #: [id number] CLICK HERE TO VIEW EXAM RADIOLOGY REPORT [...] Kenny M.D. on 03/25/2022 at 08:39 Normal [facility] VC ENDOVENOUS ABL 1ST V RTon 03-19-2022 VC ENDOVENOUS ABL 1ST V RT Patient: CARLOS LOCKE Exam Date: 03/19/2022 : 1955 Gender:M Ordering : DR RACHEAL GRAVES M.D. Admission #: [id number] Family : Order #: [id number] CLICK HERE TO VIEW EXAM RADIOLOGY REPORT [...] Graves MD on 03/19/2022 at 08:58 Normal [facility] VC CONSULT FOLLOWUPon 2021 VC CONSULT FOLLOWUP Patient: CARLOS LOCKE Exam Date: 02/18/2022 : 1955 Gender:M Ordering : DR RACHEAL GRAVES M.D. Admission #: [id number] Family : Order #: [id number] CLICK HERE TO VIEW EXAM RADIOLOGY REPORT [...] Graves MD on 02/18/2022 at 09:45 Normal [facility] VC EXT VENOUS LT LIMITEDon 0 02-18-2022 VC EXT VENOUS LT LIMITED Patient: CARLOS LOCKE Exam Date: 02/18/2022 : 1955 Gender:M Ordering : DR RACHEAL GRAVES M.D. Admission #: [id number] Family : Order #: [id number] CLICK HERE TO VIEW EXAM RADIOLOGY REPORT [...] varicose veins remain off of SSV and supervisor wet pour mid posterior calf. *Exam performed in accordance with [facility] practice guidelines- Peripheral venous ultrasound, October 07, 2009. 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 Admission #: [id number] Family : Order #: [id number] CLICK HERE TO VIEW EXAM RADIOLOGY REPORT [...] Kenny M.D. on 02/13/2022 at 10:15 Normal [facility] VC CONSULT FOLLOWUPon 2021 VC CONSULT FOLLOWUP Patient: CARLOS LOCKE Exam Date: 02/06/2022 : 1955 Gender:M Ordering : DR RACHEAL GRAVES M.D. Admission #: [id number] Family : Order #: [id number] CLICK HERE TO VIEW EXAM RADIOLOGY REPORT [...] Kenny M.D. on 02/06/2022 at 09:53 Normal [facility] VC EXT VENOUS LT LIMITEDon 0 02-06-2022 VC EXT VENOUS LT LIMITED Patient: CARLOS LOCKERusty Exam Date: 02/06/2022 : 1955 Gender:M Ordering : DR RACHEAL GRAVES M.D. Admission #: [id number] Family : Order #: [id number] CLICK HERE TO VIEW EXAM RADIOLOGY REPORT [...] M.D. on 02/06/2022 at 09:49 Normal [facility] GLYCOHEMOGLOBIN A1Con 2021 ADA RECOMMENDATION SEE BELOW Normal [facility] Comment on above: Result Comment: ADA RECOMMENDED LIMIT 4.0 - 6.0 ADA THERAPEUTIC TARGET < 7.0 ACTION SUGGESTED > 7.0 Performed By: #### A 1C #### [facility] [address] [place] [address] Dr. Juliet García Glucose [Mass/Vol] 108 mg/dL Normal [facility] Comment on above: Performed By: #### A 1C #### [facility] [address] [address] [address] Juliet García HbA1c (Bld) [Mass fraction] 5.4 % Normal 4.5-6.2 [facility] Comment on above: Performed By: #### A 1C #### [facility] [address] [place] [address] Dr. Juliet García PROF 14(COMP METB)on 022 Albumin [Mass/Vol] 4.0 g/dL Normal 3.4-5.0 [facility] Comment on above: Performed By: #### C MP ####[facility] [address] [address]Dr. Juliet García Albumin/Globulin [Mass ratio] 1.2 {ratio} Normal [facility] Comment on above: Performed By: #### C MP ####[facility] [address] [id number]. Juliet García ALP [Catalytic activity/Vol] 89 U/L Normal 46-116 [facility] Comment on above: Performed By: #### C MP ####[facility] [address] [address]Dr. Juliet Ricky ALT [Catalytic activity/Vol] 81 U/L Critically high 16-63 [facility] Comment on above: Performed By: #### C MP ####[facility] [address] [place], [place] [address]Dr. Juliet García Anion gap [Moles/Vol] 13.6 mmol/L Normal [facility] Comment on above: Performed By: #### C MP ####[facility] [address] [place], [place] [address]Dr. Juliet Ricky AST [Catalytic activity/Vol] 32 U/L Normal 15-37 [facility] Comment on above: Performed By: #### C MP ####[facility] [address] [place], [place] [address]Dr. Juliet Ricky Bilirubin [Mass/Vol] 0.5 mg/dL Normal 0.2-1.0 [facility] Comment on above: Performed By: #### C MP ####[facility] [address] [place], [place] [address]Dr. Juliet Ricky Calcium [Mass/Vol] 8.9 mg/dL Normal 8.5-10.1 [facility] Comment on above: Performed By: #### C MP ####[facility] [address] [place], [place] [address]Dr. Juliet García Chloride [Moles/Vol] 106 mmol/L Normal 98-107 [facility] Comment on above: Performed By: #### C MP ####[facility] [address] [id number]. Juliet García CO2 [Moles/Vol] 27.1 mmol/L Normal 21.0-32.0 [facility] Comment on above: Performed By: #### C MP ####[facility] [address] [place] [id number]. Juliet García Creatinine [Mass/Vol] 1.46 mg/dL Critically high 0.70-1.30 [facility] Comment on above: Performed By: #### C MP ####[facility] [address] [id number]. Juliet García EGFR-AF NICARAGUAN 59 mL/min/1.73m2 Critically low >=60 [facility] Comment on above: Performed By: #### C MP ####[facility] [address] [place] [phone]. Juliet García EGFR-NON AF NICARAGUAN 48 mL/min/1.73m2 Critically low >=60 [facility] Comment on above: Performed By: #### C MP ####[facility] [address] [phone]. Juliet García Globulin (S) [Mass/Vol] 3.4 g/dL Normal [facility] Comment on above: Performed By: #### C MP ####[facility] [address] [place] [phone]. Juliet García Glucose [Mass/Vol] 93 mg/dL Normal 74-106 [facility] Comment on above: Performed By: #### C MP ####[facility] [address] [place] [phone]. Juliet García Potassium [Moles/Vol] 4.7 mmol/L Normal 3.5-5.1 [facility] Comment on above: Performed By: #### C MP ####[facility] [address] [id number]. Juliet García Protein [Mass/Vol] 7.4 g/dL Normal 6.4-8.2 [facility] Comment on above: Performed By: #### C MP ####[facility] [address] [place], [place] [address]Uk. Juliet García Sodium [Moles/Vol] 142 mmol/L Normal 136-145 [facility] Comment on above: Performed By: #### C MP ####[facility] [address] [place], [place] [address]Jo. Juliet García Urea nitrogen [Mass/Vol] 25.0 mg/dL Critically high 7.0-18.0 [facility] Comment on above: Performed By: #### C MP ####[facility] [address] [place], [place] [address]Cx. Juliet García Urea nitrogen/Creatinine [Mass ratio] 17.1 mg/mg Normal [facility] Comment on above: Performed By: #### C MP ####[facility] [address] [place], [place] [address]Jr. Juliet García VC ENDOVENOUS ABL 1ST V LTon 01-30-2022 VC ENDOVENOUS ABL 1ST V LT Patient: CARLOS LOCKE Exam Date: 01/30/2022 : 1955 Gender:M Ordering : DR RACHEAL GRAVES M.D. Admission #: [id number] Family : Order #: [id number] CLICK HERE TO VIEW EXAM RADIOLOGY REPORT [...] Kenny M.D. on 01/30/2022 at 12:00 Normal [facility] POINT OF CARE GLUCOSEon 07- Glucose [Mass/Vol] 84 mg/dL Normal 74-106 [facility] Comment on above: Performed By: #### P OCGLUC #### [facility] [address] [address] [address] Juliet García VC COMP CONSULTATIONon 01-21 VC COMP CONSULTATION Patient: CARLOS LOCKE Exam Date: 01/21/2022 : 1955 Gender:M Ordering : DR RACHEAL GRAVES M.D. Admission #: [id number] Family : Order #: [id number] CLICK HERE TO VIEW EXAM RADIOLOGY REPORT [...] for years. The patient is retired from [employer] after working 42 years. The patient denies [...] any additional information, and this was performed [facility]. See separate history and physical [...] incompetent branch saphenous tributary/varicose veins. Bilateral incompetent supervisor wet pour veins. PHYSICAL EXAM: The right leg demonstrates [...] pulses were present bilaterally. IMPRESSION: 1. Bilateral tqqs-ck-zkhamgjn great saphenous vein and mild right small [...] Graves MD on 01/21/2022 at 11:46 Normal [facility] VC VENOUS REFLUX MARIE LMTon 0 01-21-2022 VC VENOUS REFLUX MARIE LMT Patient: CARLOS LOCKE Exam Date: 01/21/2022 : 1955 Gender:M Ordering : DR RACHEAL GRAVES M.D. Admission #: [id number] Family : DR NATHALY BOONE . Order #: [id number] CLICK HERE TO VIEW EXAM RADIOLOGY REPORT [...] Compressibility: Normal. Flow: Mild deep venous reflux. Cloud Software Engineer: Post/prox calf 5.9mm, 0.7s reflux. Prox/med calf [...] Graves MD on 01/21/2022 at 10:40 Normal [facility] POINT OF CARE GLUCOSEon - Glucose [Mass/Vol] 87 mg/dL Normal 74-106 [facility] Comment on above: Performed By: #### P OCGLUC ####[facility] [address] [place], [place] [address]Ad. Juliet García SURGICAL PATHOLOGYon 021 SURGICAL PATHOLOGY Specimen #: [id number] Submitting Physician: JULIET GARCÍA M.D. FINAL DIAGNOSIS [place], [place]; [id number] (12/07/2020) Liver, mass , biopsy (A1, A2, [...] do not hesitate to contact us at [phone] with questions or if additional follow up information becomes available. This case was reviewed in conjunction with the GI pathology fellow, Apoorva Diallo MD. The following stains were performed at the [facility] in order to further characterize [...] in-situ hybridization tests have been determined by [facility]'s Frankie Che [facility] Medicine [place] [facility] in a manner consistent with CLIA requirements. One or more of these tests have not been cleared or approved by the FDA. [facility] is regulated under CLIA as qualified to perform high-complexity testing. These tests are used for clinical purposes. They should not be regarded as investigational or for research. Nicolasa Cheema M.D. (Electronic Signature) _ SPECIMEN SUBMITTED A: 12 slides [id number] CLINICAL DATA Mass Date of Report: 03/27/2021 Date of Procedure: 03/16/2021 Date of Receipt: 03/15/2021 Submitted by: JULIET GARCÍA M.D. Location: Diagnostic interpretation performed at [place] [address]. CLIA Number: [id number] Normal [facility] Comment on above: Performed By: #### S #### See report for performing lab information. Vital Signs Date Time Vital Sign Value Performing Clinician Facility 11-04-2023 08:38-0400 Blood Pressure Location LIZ HERNANDEZ [facility] 11-04-2023 08:38-0400 Diastolic blood pressure 82 mm[Hg] LIZ FRANCORY [facility] 11-04-2023 08:38-0400 Heart rate 80 /min LIZ DAVID [facility] 11-04-2023 08:38-0400 Respiratory rate 16 /min LIZDOYLE FRANCORY [facility] 11-04-2023 08:38-0400 Systolic blood pressure 131 mm[Hg] LIZ DAVID [facility] 06-03-2023 09:59-0500 Blood Pressure Location LIZ DAVID [facility] 06-03-2023 09:59-0500 Diastolic blood pressure 74 mm[Hg] LIZ DVAID [facility] 06-03-2023 09:59-0500 Heart rate 70 /min LIZ DAVID [facility] 06-03-2023 09:59-0500 Respiratory rate 16 /min LIZ DAVID [facility] 06-03-2023 09:59-0500 Systolic blood pressure 138 mm[Hg] LIZ DAVID [facility] 05-23-2022 09:45-0500 Body height 187.96 cm Alejandra Olexa Other [facility] 05-23-2022 09:45-0500 Body mass index (BMI) [Ratio] 40.57 kg/m2 Alejandra Olexa Other [facility] Other 05-23-2022 09:45-0500 Body weight 143.34 kg Alejandra Olexa Other [facility] Other 08-07-2021 14:15-0500 Body height 187.96 cm Alejandra Olexa Other [facility] Other 08-07-2021 14:15-0500 Body mass index (BMI) [Ratio] 40.64 kg/m2 Alejandra Olexa Other [facility] Other 08-07-2021 14:15-0500 Body weight 143.61 kg Alejandra Olexa Other [facility] Other 04-12-2021 10:30-0400 Body height 187.96 cm Racheal Daniels Other [facility] Other 04-12-2021 10:30-0400 Body mass index (BMI) [Ratio] 41.75 kg/m2 Racheal Daniels Other [facility] Other 04-12-2021 10:30-0400 Body weight 147.51 kg Racheal Daniels Other [facility] Other 04-12-2021 10:30-0400 Diastolic blood pressure 71 mm[Hg] Racheal Daniels Other [facility] Other 04-12-2021 10:30-0400 Systolic blood pressure 131 mm[Hg] Racheal Daniels Other [facility] Other Encounters Encounter Date Encounter Type Care Provider Facility Start: 05-25-2024 ambulatory LIZ HERNANDEZ [facility]ili [facility] Start: 01-12-2024 End: 01-12-2024 ambulatory HARINDER NADERER Not Available Start: 11-04-2023 End: 11-05-2023 ambulatory LIZ HERNANDEZ Facility:[facility] Start: 11-04-2023 End: 11-04-2023 Patient encounter procedure LIZ HERNANDEZ [facility] Start: 07-23-2023 End: 07-23-2023 ambulatory HARINDER NADERER Not Available Start: 06-30-2023 End: 07-01-2023 ambulatory Donaldo Sparrow MD Facility: [facility] Start: 06-03-2023 End: 06-04-2023 ambulatory LIZ HERNANDEZ Facility:[facility] Start: 06-03-2023 End: 06-03-2023 Patient encounter procedure LIZ HERNANDEZ [facility] Start: 01-06-2023 End: 01-07-2023 ambulatory Donaldo Sparrow MD Facility:[facility] Start: 12-05-2022 End: 12-06-[address] FELISA BERRIOS . Facility:[facility] Start: 12-03-2022 End: 12-04-[address] FELISA BERRIOS . Facility:[facility] Start: 11-29-2022 End: 11-30-2022 ambulatory NEHAENDRANKAZ LAKSHMIPATHY . Facility:[facility] Start: 11-12-2022 End: 11-13-[address] FELISA BERRIOS . Facility:[facility] Start: 11-05-2022 End: 11-06-[address] FELISA BERRIOS . Facility:[facility] Start: 10-28-2022 End: 10-29-[address] FELISA BERRIOS . Facility:[facility] Start: 10-21-2022 End: 10-21-[address] FELISA BERRISO . Facility:[facility] Start: 10-18-2022 Encounter for preprocedural cardiovascular examination [facility] Start: 10-18-2022 Encounter for preprocedural laboratory examination T[facility] Start: 10-16-[address] FELISA BERRIOS [...] Start: 07-31-2022 End: 07-31-2022 ambulatory BENTLEY MACK [facility] Start: 07-31-2022 End: 08-01-[address] [...] 05-23-2022 End: 05-23-2022 ambulatory Alejandra Cain Other [facility] Other Start: 05-23-2022 Office outpatient vi sit 15 minutes Alejandra Cain [facility] Start: 05-03-2022 End: 05-04-2022 ambulatory [...] 08-07-2021 End: 08-07-2021 ambulatory Alejandra Cain Other [facility] Other Start: 08-07-2021 Office outpatient vi sit 15 minutes Alejandra Cain [facility] Start: 04-12-2021 Office outpatient vi sit 15 minutes Racheal Daniels [facility] Gastroenterology Procedures Date Procedure Procedure Detail Performing Clinician Start: 05-03-[address] RACHEAL GRAVES Comment on above: Performed By: #### P SAD #### [facility] [address] [place] [address] Dr. Juliet García Start: 12-07-2020 CT guided biopsy NATALIE HERNANDEZ Comment on above: LIVER. NO SEDATION. Arthroscopy of knee LIZ HERNANDEZ Bilateral cataracts (disorder) LIZ HERNANDEZ H/O: vasectomy LIZ De Jesus [employer] (substance) JOSE HERNANDEZ Comment on above: Toe Tonsillectomy LIZ HERNANDEZ Immunizations Immunization Date Immunization Notes Care Provider Michelle thomas 04-20-2023 SARS-CoV-2 mRNA (tozinameran 5y-11y) vaccine LIZ HERNANDEZ [facility] Comment on above: Result Comment: covi d 19 mRNA (cvs) 04-17-2022 influenza virus vacc ine, unspecified formulation LIZ HERNANDEZ [facility] 03-23-2022 SARS-CoV-2 (COVID-19 ) [id number] LIZ HERNANDEZ [facility] 10-23-2021 SARS-CoV-2 mRNA (vkabwzhrsvo-ijxx-dooift e) vaccine LIZ HERNANDEZ [facility] 05-27-2021 pneumococcal polysaccharide vaccine, 23 valent LIZ HERNANDEZ [facility] 05-06-2021 SARS-CoV-2 (COVID-19 ) mRNA BNT-162a4 vax LIZ HERNANDEZ [facility] Comment on above: Result Comment: 2021: [id number] 04-07-2021 influenza virus vacc ine, unspecified formulation LIZ HERNANDEZ [facility] 09-18-2020 SARS-CoV-2 (COVID-19 ) mRNA BNT-162b2 vax LIZ HERNANDEZ [facility] 04-19-2020 influenza virus vacc ine, unspecified formulation LIZ HERNANDEZ [facility] [place] 04-15-2020 influenza virus vacc ine, unspecified formulation LIZ HERNANDEZ [facility] 04-20-2018 influenza virus vacc ine, unspecified formulation LIZ HERNANDEZ [facility] 03-24-2018 influenza virus vacc ine, unspecified formulation LIZ HERNANDEZ [facility] 05-01-2013 influenza virus vacc ine, unspecified formulation LIZ HERNANDEZ [facility] Payers Date Payer Category Payer Medicare 2022 Unknown 2022 Unknown [id number] 2021 Medicare [id number] 2019 Unknown [id number] 2. [id number] 1959 Medicare [id number] 1955 Unknown [id number] 2.16.84 0.1.447063.3.579.2.593 1955 Unknown [id number] 2.16.84 0.1.769966.3.579.2.593 1955 Unknown [id number] 2.16.84 0.1.588519.3.579.2.593 1955 Unknown [id number] 2.16.84 0.1.066293.3.579.2.593 1955 Unknown [id number] 2.16.84 0.1.324661.3.579.2.593 1955 Unknown [id number] 2.16.84 0.1.229283.3.579.2.593 1955 Unknown [id number] 2.16.84 0.1.592582.3.579.2.593 1955 Unknown [id number] 2.16.84 0.1.369316.3.579.2.593 1955 Unknown [id number] 2.16.84 0.1.454024.3.579.2.593 1955 Unknown [id number] 2.16.84 0.1.512494.3.579.2.593 1955 Unknown [id number] 2.16.84 0.1.201105.3.579.2.593 1955 Unknown [id number] 2.16.84 0.1.811814.3.579.2.593 1956 Unknown [id number] 2.16.84 0.1.192526.3.579.2.593 1955 Unknown [id number] 2.16.84 0.1.276984.3.579.2.593 1955 Unknown [id number] 2.16.84 0.1.905658.3.579.2.593 1955 Unknown [id number] 2.16.84 0.1.778976.3.579.2.593 1956 Unknown [id number] 2.16.84 0.1.015062.3.579.2.593 1955 Unknown [id number] 2.16.84 0.1.171212.3.579.2.593 1956 Unknown [id number] 2.16.84 0.1.906674.3.579.2.593 1956 Unknown [id number] 2.16.84 0.1.063875.3.579.2.593 1956 Unknown [id number] 2.16.84 0.1.766403.3.579.2.593 1956 Unknown [id number] 2.16.84 0.1.383705.3.579.2.593 1956 Unknown [id number] 2.16.84 0.1.991798.3.579.2.593 1956 Unknown [id number] 2.16.84 0.1.639255.3.579.2.593 1956 Unknown [id number] 2.16.84 0.1.140099.3.579.2.593 1956 Unknown [id number] 2.16.84 0.1.696234.3.579.2.593 1956 Unknown [id number] 2.16.84 0.1.576042.3.579.2.593 1956 Unknown [id number] 2.16.84 0.1.671390.3.579.2.593 1956 Unknown [id number] 2.16.84 0.1.494257.3.579.2.593 1956 Unknown [id number] 2.16.84 0.1.997203.3.579.2.593 1956 Unknown [id number] 2.16.84 0.1.179446.3.579.2.593 1956 Unknown [id number] 2.16.84 0.1.316935.3.579.2.593 1956 Unknown [id number] 2.16.84 0.1.470307.3.579.2.593 1956 Unknown [id number] 2.16.84 0.1.637272.3.579.2.593 1956 Unknown [id number] 2.16.84 0.1.950099.3.579.2.593 1956 Unknown [id number] 2.16.84 0.1.716841.3.579.2.593 1956 Unknown [id number] 2.16.84 0.1.279990.3.579.2.593 1956 Unknown [id number] 2.16.84 0.1.260325.3.579.2.593 1956 Unknown [id number] 2.16.84 0.1.210938.3.579.2.593 1956 Unknown [id number] 2.16.84 0.1.494879.3.579.2.593 1956 Unknown [id number] 2.16. 840.1.453958.3.579.2.196 1956 Unknown [id number] 2.16. 840.1.186692.3.579.2.196 1956 Unknown [id number] 2.16. 840.1.756582.3.579.2.196 1956 Unknown [id number] 2.16.8 40.1.463938.3.579.2.727 1956 Unknown [id number] 2.16.8 40.1.892613.3.579.2.727 1956 Unknown [id number] 2.16.8 40.1.560375.3.579.2.727 1956 Unknown [id number] 2.16.84 0.1.372183.3.579.2.1259 1956 Unknown [id number] 2.16.84 0.1.737506.3.579.2.1259 Social History Date Type Detail Facility Sex Assigned At [facility] Start: 06-03-2023 End: 11-04-2023 Tobacco smoking status Never smoked tobacco (finding) [facility] Tobacco smoking status Never [facility] Functional Status Date Assessment Result Facility 11-04-2023 Functional Status N/A [facility] 06-03-2023 Functional Status N/A [facility] Clinical Notes 04-12-2021 to 11-04-2023 Note Date & Type Note Facility 11-04-2023 Hospital Discharge instructions Patient Education 11/04/2023 09:28:50 Erectile Dysfunction Erectile Dysfunction Erectile dysfunction (ED) is the inability to get or keep an erection in order to have sexual intercourse. ED is considered a symptom of an underlying disorder and is not considered a disease. ED may include: Inability to get an erection. Lack of enough hardness of the erection to allow penetration. Loss of erection before sex is finished. What are the causes? This condition may be caused by: Physical causes, such as: ?Artery problems. This may include heart disease, high blood pressure, atherosclerosis, and diabetes. ?Hormonal problems, such as low testosterone. ?Obesity. ?Nerve problems. This may include back or pelvic injuries, multiple sclerosis, Parkinson's disease, spinal cord injury, and stroke. Certain medicines, such as: ?Pain relievers. ?Antidepressants. ?Blood pressure medicines and water pills (diuretics). ?Cancer medicines. ?Antihistamines. ?Muscle relaxants. Lifestyle factors, such as: ?Use of drugs such as marijuana, cocaine, or opioids. ?Excessive use of alcohol. ?Smoking. ?Lack of physical activity or exercise. Psychological causes, such as: ?Anxiety or stress. ?Sadness or depression. ?Exhaustion. ?Fear about sexual performance. ?Guilt. What are the signs or symptoms? Symptoms of this condition include: Inability to get an erection. Lack of enough hardness of the erection to allow penetration. Loss of the erection before sex is finished. Sometimes having normal erections, but with frequent unsatisfactory episodes. Low sexual satisfaction in either partner due to erection problems. A curved penis occurring with erection. The curve may cause pain, or the penis may be too curved to allow for intercourse. Never having nighttime or morning erections. How is this diagnosed? This condition is often diagnosed by: Performing a physical exam to find other diseases or specific problems with the penis. Asking you detailed questions about the problem. Doing tests, such as: ?Blood tests to check for diabetes mellitus or high cholesterol, or to measure hormone levels. ?Other tests to check for underlying health conditions. ?An ultrasound exam to check for scarring. ?A test to check blood flow to the penis. Doing a sleep study at home to measure nighttime erections. How is this treated? This condition may be treated by: Medicines, such as: ?Medicine taken by mouth to help you achieve an erection (oral medicine). ?Hormone replacement therapy to replace low testosterone levels. ?Medicine that is injected into the penis. Your health care provider may instruct you how to give yourself these injections at home. ?Medicine that is delivered with a short applicator tube. The tube is inserted into the opening at the tip of the penis, which is the opening of the urethra. A tiny pellet of medicine is put in the urethra. The pellet dissolves and enhances erectile function. This is also called MUSE (medicated urethral system for erections) therapy. Vacuum pump. This is a pump with a ring on it. The pump and ring are placed on the penis and used to create pressure that helps the penis become erect. Penile implant surgery. In this procedure, you may receive: ?An inflatable implant. This consists of cylinders, a pump, and a reservoir. The cylinders can be inflated with a fluid that helps to create an erection, and they can be deflated after intercourse. ?A semi-rigid implant. This consists of two silicone rubber rods. The rods provide some rigidity. They are also flexible, so the penis can both curve downward in its normal position and become straight for sexual intercourse. Blood vessel surgery to improve blood flow to the penis. During this procedure, a blood vessel from a different part of the body is placed into the penis to allow blood to flow around (bypass) damaged or blocked blood vessels. Lifestyle changes, such as exercising more, losing weight, and quitting smoking. Follow these instructions at home: Medicines Take xlay-lbk-fcshqza and prescription medicines only as told by your health care provider. Do not increase the dosage without first discussing it with your health care provider. If you are using self-injections, do injections as directed by your health care provider. Make sure you avoid any veins that are on the surface of the penis. After giving an injection, apply pressure to the injection site for 5 minutes. Talk to your health care provider about how to prevent headaches while taking ED medicines. These medicines may cause a sudden headache due to the increase in blood flow in your body. General instructions Exercise regularly, as directed by your health care provider. Work with your health care provider to lose weight, if needed. Do not use any products that contain nicotine or tobacco. These products include cigarettes, chewing tobacco, and vaping devices, such as e-cigarettes. If you need help quitting, ask your health care provider. Before using a vacuum pump, read the instructions that come with the pump and discuss any questions with your health care provider. Keep all follow-up visits. This is important. Contact a health care provider if: You feel nauseous. You are vomiting. You get sudden headaches while taking ED medicines. You have any concerns about your sexual health. Get help right away if: You are taking oral or injectable medicines and you have an erection that lasts longer than 4 hours. If your health care provider is unavailable, go to the nearest emergency room for evaluation. An erection that lasts much longer than 4 hours can result in permanent damage to your penis. You have severe pain in your groin or abdomen. You develop redness or severe swelling of your penis. You have redness spreading at your groin or lower abdomen. You are unable to urinate. You experience chest pain or a rapid heartbeat (palpitations) after taking oral medicines. These symptoms may represent a serious problem that is an emergency. Do not wait to see if the symptoms will go away. Get medical help right away. Call your local emergency services (911 in the [place] Do not drive yourself to the hospital. Summary Erectile dysfunction (ED) is the inability to get or keep an erection during sexual intercourse. This condition is diagnosed based on a physical exam, your symptoms, and tests to determine the cause. Treatment varies depending on the cause and may include medicines, hormone therapy, surgery, or a vacuum pump. You may need follow-up visits to make sure that you are using your medicines or devices correctly. Get help right away if you are taking or injecting medicines and you have an erection that lasts longer than 4 hours. This information is not intended to replace advice given to you by your health care provider. Make sure you discuss any questions you have with your health care provider. Document Revised: 09/26/2021 Document Reviewed: 09/26/2021 [employer] Patient Education 2022 [employer]. Follow Up Care 06/03/2023 10:28:55 With:LIZ HERNANDEZ PA-C, URL Address: [address] [place] [address] [phone] When: Unknown [facility] 06-03-2023 Hospital Discharge instructions Patient Education 06/03/2023 [...] treatment? Where to find more information [employer]: www.cancer.org [employer]: www.auanet.org Contact a health care [...] provider. Document Revised: 12/24/2021 Document Reviewed: 12/24/2021 [employer] Patient Education 2022 [employer]. Follow Up Care 05/29/2022 11:47:27 With:DAVID IVAN, LIZ Juarez, URL Address: [address] [facility] [place] [address] [phone] When: Unknown Comments:6 mos w/ PSA [facility] 12-03-2022 Note PROCEDURE: XR FOOT L [...] authenticated by: ELIN KENNY Date: 2022-12-03 09:57 [facility] 11-12-2022 Note PROCEDURE: XR FOOT L [...] by: ZAFAR FERRER Date: 2022-11-12 13:59 [facility] 10-22-2022 Note PROCEDURE: XR FOOT [...] compared to intraoperative images. Electronically authenticated by: EILN KENNY Date: 2022-10-22 07:48 [facility] 10-22-2022 Note PROCEDURE: XR FOOT L T 2V HISTORY: Pain COMPARISON: XR foot left 10/21/2022 FINDINGS: BONES:Multiple intraoperative spot fluoroscopic images demonstrate mechanical fusion of the first metatarsophalangeal joint and resection of head of first proximal phalanx. IMPRESSION: 1. Surgical changes of left first toe as detailed above. Electronically authenticated by: ELIN KENNY Date: 2022-10-22 07:46 [facility] 07-31-2022 Note Currently stable [facility] 07-31-2022 Note Hypertension is well controlled 114/64 Continue lisinopril 5 mg Recent CR elevated 1.59- his cr typically has been 1.2-1.4 - He has been on antibiotics for Lt foot infection- DFU with wound care. [facility] 07-31-2022 Note Lipid abnormalities are currently well controlled with lipitor 20 mg- LDL currently 58.6 on labs 07/26/2022 Liver function 04/2022 were normal [facility] 07-31-2022 Note UTP CARDIOLOGY PROGR ESS [...] RTC 1 year or earlier if needed [facility] 07-31-2022 Note Patient here for 6 [...] All other systems reviewed and are negative. [facility] 07-31-2022 Note CONSULTATION PROCEDURE DATE: 07/31/2022 [...] the clinic in three months' time. [facility] 07-25-2022 Note CONSULTATION CONSULTATION DATE: 07/25/2022 HISTORY OF PRESENT ILLNESS: This is a 66-year-old gentleman who presents to the Pain Clinic today with increased lower back pain. The patient does have chronic bilateral knee pain, but he states those are doing quite well. He did receive a left knee steroid injection in April. The patient just recently returned from a [place] vacation, where he visited multiple [facility] mayes and had a lot of increased [...] and will be contacted upon approval. [facility] 07-24-2022 Note PROCEDURE: XR FOOT [...] by: ELIN KENNY Date: 2022-07-24 10:21 [facility] 06-10-2022 Note PROCEDURE: XR KNEE L T 4V or > HISTORY: Pain in left knee ; chronic left knee pain COMPARISON: XR knee bilateral 05/31/2021 FINDINGS: BONES:Marked narrowing of the medial joint space with suspected avyn-mr-yipp articulation. Moderate-marked narrowing of the lateral compartment. Mild narrowing of anterior compartment. Small periarticular osteophytes involving the margins of all 3 compartments. No fracture or dislocation. SOFT TISSUES:No visible soft tissue swelling. EFFUSION:Small joint effusion. OTHER: Negative. IMPRESSION: 1. Marked degenerative joint disease. Stable to minimally progressed. Electronically authenticated by: ELIN KENNY Date: 2022-06-10 19:35 [facility] 05-23-2022 Evaluation note Encounter Date [...] Pain in left knee (ICD-10 - M25.562) [facility] Other 10-11-2022 NoteCONSULTATION CONSULTATION DATE: 04/23/2022 CHIEF [...] the time being. CC: Felisa Berrios M.D.[facility] [id number] NoteCONSULTATION CONSULTATION DATE: 04/04/2022 HISTORY OF PRESENT [...] indicated. Patient agreed with plan of care.[facility] [id number] Note CONSULTATION CONSULTATION DATE: 02/14/2022 HISTORY OF [...] time unless otherwise indicated. Patient acknowledges understanding.[facility] [id number] NoteCONSULTATION PROCEDURE DATE: 02/14/2022 PREOPERATIVE DIAGNOSIS: Bilateral [...] will be followed up in the office.[facility] [id number] Evaluation note* Encounter Date Diagnosis Assessment Notes [...] Pain in left knee (ICD-10 - M25.562) [facility] Other 09-30-2021 Evaluation note* Encounter Date Diagnosis Assessment Notes Treatment Notes Treatment Clinical Notes Mar, Liver hemangioma (ICD-10 - D18.03) Mar, HODGES (nonalcoholic steatohepatitis) (ICD-10 - K75.81) [facility] Other Evaluation + Plan note Future Appointments Appointment Date:11/04/2023 08:30:00 AM Scheduled Provider:LIZ HERNANDEZ PA-C Location:[facility] Appointment Type:URO Office Visit Diagnostic Tests Pending * PSA Total 06/03/23 [facility] Michael evaluation + Plan note Future Appointments Appointment Date:05/25/2024 08:40:00 AM Scheduled Provider:LIZ HERNANDEZ PA-C Location:[facility] Appointment Type:URO Office Visit [facility] [place] History general Narrative - Reported* Type Description Date Medical History DM II Medical History HTN Medical History hyperlipidemia Medical History gout Surgical History knee surgery Surgical History tonsillectomy Surgical History vasectomy Surgical History sinus surgery Surgical History back injections Hospitalization History SEE ABOVE SURGICAL HX [facility] Other Hospital course Narrative No data available for this section [facility] progress note No data available for this section [facility] Summary Purpose Family History No Family History Records FoundNo Family History Records FoundNo Family History Records Found No data available for this section No Family History Records Found No data available [...] section and content) DATE CREATED AUTHOR 03/29/2021 [facility] DATE CREATED AUTHOR AUTHOR'S ORGANIZ ATION 08/06/2022 [facility] DATE CREATED AUTHOR AUTHOR'S ORGANIZ ATION 12/20/2022 [facility] DATE CREATED AUTHOR AUTHOR'S ORGANIZ ATION 07/05/2023 [facility] DATE CREATED AUTHOR AUTHOR'S ORGANIZ ATION 11/06/2023 [facility] DATE CREATED AUTHOR AUTHOR'S ORGANIZ ATION 01/12/2024 [facility] EPIC REASON FOR VISIT (unrecogniz ed section and content) PT HERE FOR 4 WEEK FOLLOW UP LIVER LESION LABS WERE ORDERED AT LAST OFFICE VISITBilateral Knee PainRecheck Bilateral Knees Patient Care team informatio n (unrecognized section and content) Personnel Name: FELISA BERRIOS MD Address: Address: [address] [place] [address] Personnel Name: HARINDER RUGGIERO MD Address: Address: [address] [place] [address] FOR RECORDS PERTAINING TO PATIENTS WHO ARE [...] BE BASED ON THE PRIMARY CLINICAL RECORDS. [facility]. provides no warranty or guarantee of the accuracy or completeness of information in this document.
== END 2024-02-11 10:36 | disposition home or self-care (01) ==
LOC: EC 10:35
PROVIDERS: PCP Family Medicine; Visit Provider Podiatrist Foot & Ankle Surgery
DX: M79.672 Pain in left foot (principal); T84.293A Other mechanical complication of internal fixation device of bones of foot and toes, initial encounter
CPT/HCPCS: 73630

== ENCOUNTER 2024-05-06 08:37 | Outpatient (OUT) | payer BC, MEDICARE, SELFPAY ==
--- OUTSIDE RECORDS SUMMARY | 2024-05-06 08:48 | XMS_ITS | CCD ---
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 Name Role Phone DominikRacheal hinton Unavailable Ant [...] ., DR BEKAH Juarez Primary Care Unavailable ELTAHAWLiza, DR SALCIDO [...] Care Unavailable BERRIOS ., DR BEKAH Juarez Admjulio césar Unavailable BERRIOS ., DR BEKAH Juarez Primary Care Unavailable WEST, DR RACHEAL Ayala Consulting Unavailable GIEDRAITIS, ANDRIUS Attending Unavailable GIEDRAITIS, ANDRIUS Admitting Unavailable GIEDRAITIS, ANDRIUS Consulting Unavailable BERRIOS ., DR BEKAH Juarez Primary Care Unavailable WEST, DR RACHEAL Ayala Consulting Unavailable WEST, DR RACHEAL Ayala Attending Unavailable WEST, DR RACHEAL Ayala Admitting Unavailable ZIEBER, DR AKASH Oliva Consulting Unavailable [...] ., DR BEKAH Juarez Primary Care Unavailable ZIEBRONAK, DR AKASH Oliva Consulting Unavailable HIGHLANDER, PETER D Consulting Unavailable BERRIOS ., DR BEKAH Juarez Primary Care Unavailable HIGHLANDER, PETER D Admitting Unavailable HIGHLANDER, PETER D Attending Unavailable ZIEBER, DR AKASH Oliva Consulting Unavailable HIGHLANDER, PETER D Consulting Unavailable NELIDA ., CECY BLACKMON Consulting Unavailable JENNIFER II, ALEJANDRA Consulting Unavailable TYLERYURI Consulting Unavailable KOTONIO POPE Consulting Unavailable BERRIOS ., DR BEKAH Juarez [...] Consulting Unavailable BERRIOS ., DR BEKAH Juarez Admjulio césar Unavailable BERRIOS ., DR BEKAH Juarez Primary Care Unavailable BOONE ., DR NATHALY Main Consulting Unavailable BOONE ., DR NATHALY Main Attending Unavailable BOONE ., DR NATHALY Main Admitting Unavailable ALEX .RODRIGO Consulting Unavailable WEST, DR RACHEAL Ayala Consulting Unavailable RUBEN ., DR BEKAH Juarez Primary Care Unavailable [facility] [place] STEWART Attending Unavailable [facility] Admitting Unavailable [facility] STEWART Consulting Unavailable WEST, DR RACHEAL Ayala Admitting Unavailable WEST, DR RACHEAL Ayala Consulting Unavailable WEST, DR RACHEAL Ayala Attending Unavailable BERRIOS ., DR BEKAH Juarez [facility] Oliva Consulting Unavailable RUBEN ., DR BEKAH Juarez Primary Care Unavailable WEST, DR RACHEAL Ayala Admitting Unavailable WEST, DR RACHEAL Ayala Consulting Unavailable WEST, DR RACHEAL Ayala Attending Unavailable ZIEBER, DR AKASH Oliva Consulting Unavailable WEST, DR RACHEAL Ayala Admitting Unavailable WEST, DR RACHEAL Ayala Consulting Unavailable BERRIOS ., DR BEKAH Juarez Primary Care Unavailable WEST, DR RACHEAL Ayala Attending Unavailable BEKAH BERRIOS Primary Care Physician Kyara MCGUIRE, Donaldo Cunnignham Attending Unavailable Kyara MCGUIRE, Donaldo Cunningham Attending Unavailable Kyara MCGUIRE, Donaldo Cunningham Attending Unavailable HARINDER RUGGIERO Primary Care Physician HARINDER RUGGIERO Attending Unavailable HARINDER RUGGIERO Attending Unavailable MARZENA HERNANDEZ Attending Unavailab MARZENA Cerna Attending Unavailab MARZENA Cerna Attending Unavailab marylou Allergies Allergy Classification Reported Allergen(s) Allergy Type Date of Onset Reaction(s) Facility (3 sources) Acetaminophen / oxyCODONE Drug Allergy Unknown [facility] Other (1 source) Acetaminophen / oxyCODONE; Translations: [OXYCODONE-ACETAM INOPHEN] Drug Allergy 3 [facility] Repository (4 sources) oxyCODONE; Translations: [OXYCODONE] Drug Allergy 3 Hyperactive behavior (finding) [facility] Repository (1 source) Acetaminophen / oxyCODONE Drug Allergy [facility] Repository (1 source) oxyCODONE; Translations: [OxyCODONE Hydrochloride] Drug Allergy [facility] Repository Medications Current Medications Medication [...] Status: Ordered take 1 tablet by debbie every twelve hours Diclofenac Sodium 50 MG [...] 20mg/24hrs, # 20 tab(s), Refills(s) 3, Pharmacy: [facility]/pharmacy #[id number], 188, cm, 06/03/23 10:01:00 EST, Height/Length Dosing, 138, kg, 11/21/23 10:01:00 EST, Weight Dosing Start Date: 06/03/23 [...] needed, # 2 tab(s), Refills(s) 0, Pharmacy: [facility]/pharmacy #[id number], 185.4, cm, 12/05/20 11:15:00 EDT, [...] Resolved: 2 Chronic Other aftercare (1 source) 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 00TIFF Normal [facility] Screens [id number]#1. 00TIFF Normal [facility] Patient Educationon 11-04-19 Patient Education Urology [...] these instructions at home: Medicines ? Take asdw-xqa-ndpotnh and prescription medicines only as told by [...] include cig (more content not included)... Normal [facility] Urology Office/Clinic Noteon 11-04-2023 Urology Office/Clinic [...] E&M of Est. Patient Moderate 30-39 Min 80602 3. Kidney calculi (N20.0: Calculus of kidney) [...] E&M of Est. Patient Moderate 30-39 Min 65689 XR Abdomen 1 View 4. BPH with [...] E&M of Est. Patient Moderate 30-39 Min 99585 Influenza immunization status assessed 1030F Medication list [...] E&M of Est. Patient Moderate 30-39 Min 07436 Follow-up With When Contact Information LIZ HERNANDEZ PA-C, URL [address] [facility] [place] [address] [phone] Additional Instructions: 6 mos w/ KUB Patient [...] cancer in father History of pulmonary embolism [place] (more content not included)... Normal [facility] Comment on above: Result Comment: Elec tronically Signed By: LIZ HERNANDEZ PA-C\.br\Date and Time Signed: 11/04/23 10:26 EDT\.br\Electronically Co-Signed By: Maru Burr\.br\Date and Time Co-Signed: 11/04/23 09:31 EDT Lab Reportson 10-27-2023 Lab Reports [id number]#1.0 0TIFF Normal [facility] Lab Reportson 06-30-2023 Lab Reports [id number]#1. 00TIFF Normal [facility] RAD - MISCon 06-04-2023 RAD - MISC [id number]#1.00 TIFF Normal [facility] Screenson 06-04-2023 Screens [id number]#1. 00TIFF [facility] Patient Educationon 06-03-20 Patient Education Oncology [...] Where to find more information ? The [place] [employer]: www.cancer.org ? [place] [employer]: www.auanet.org Contact a health care [...] adds flu (more content not included)... Normal [facility] Urology Office/Clinic Noteon 06-03-2023 Urology [...] When Contact Information LIZ HERNANDEZ PA-C, URL [address] [place] [address] [phone] Additional Instructions: 6 mos w/ PSA Patient [...] guided bi (more content not included)... Normal [facility] Comment on above: Result Comment: Elec tronically Signed By: LIZ HERNANDEZ PA-C\.br\Date and Time Signed: 06/03/23 11:48 EST\.br\Electronically Co-Signed By: Maru Burr.clau\Date and Time Co-Signed: 06/03/23 10:26 EST Immunization Recordson 04-23 Immunization Records [id number]. 00TIFF Normal [facility] XR LSPINE W_OBLS AND FLEX_EX [...] RACHEAL GRAVES Date: 2022-12-05 09:46 Normal [facility] CBC AUTO DIFFon 10-21-2022 BASO # 0.1 103/ul Normal 0.0-0.1 [facility] Comment on above: Performed By: #### P OCGLUC #### [facility] [address] [address] [address] Juliet García Basophils/100 WBC (Bld) 0.7 % Normal 0.2-2.0 [facility] Comment on above: Performed By: #### P OCGLUC #### [facility] [address] [address] [address] Juliet García EO # 0.4 103/ul Normal 0.0-0.7 [facility] Comment on above: Performed By: #### P OCGLUC #### [facility] [address] [address] [address] Juliet García Eosinophils/100 WBC (Bld) 5.3 % Normal 0.9-7.0 [facility] Comment on above: Performed By: #### P OCGLUC #### [facility] [address] [place] [address] Dr. Juliet García Erythrocyte distribution width (RBC) [Ratio] 14.0 % Normal 11.0-15.0 [facility] Comment on above: Performed By: #### P OCGLUC #### [facility] [address] [place] [address] Dr. Juliet García Hematocrit (Bld) [Volume fraction] 43.6 % Normal 42.0-54.0 [facility] Comment on above: Performed By: #### P OCGLUC #### [facility] [address] [place] [address] Dr. Juliet García Hemoglobin (Bld) [Mass/Vol] 14.9 g/dL Normal 14.0-18.0 [facility] Comment on above: Performed By: #### P OCGLUC #### [facility] [address] [place] [address] Dr. Juliet García IG # 0.03 10e3/ul Normal 0.00-0.03 [facility] Comment on above: Performed By: #### P OCGLUC #### [facility] [address] [place] [address] Dr. Juliet García IG % 0.4 % Normal 0.0-0.5 [facility] Comment on above: Performed By: #### P OCGLUC #### [facility] [address] [place] [address] Dr. Juliet García LYMPH # 2.0 103/ul Normal 1.2-3.8 [facility] Comment on above: Performed By: #### P OCGLUC #### [facility] [address] [place] [address] Dr. Juliet García Lymphocytes/100 WBC (Bld) 29.3 % Normal 20.5-60.0 [facility] Comment on above: Performed By: #### P OCGLUC #### [facility] [address] [place] [address] Dr. Juliet García MANUAL DIFF REQ NO Normal [facility] Comment on above: Performed By: #### P OCGLUC #### [facility] [address] [place] [address] Dr. Juliet García MCH (RBC) [Entitic mass] 33.4 pg Normal 25.9-34.0 [facility] Comment on above: Performed By: #### P OCGLUC #### [facility] [address] [place] [address] Dr. Juliet García MCHC (RBC) [Mass/Vol] 34.2 g/dL Normal 29.9-35.2 [facility] Comment on above: Performed By: #### P OCGLUC #### [facility] [address] [place] [address] Dr. Juliet García MCV (RBC) [Entitic vol] 97.8 fL Critically high 80.0-94.0 [facility] Comment on above: Performed By: #### P OCGLUC #### [facility] [address] [place] [address] Dr. Juliet García MONO # 0.7 103/ul Normal 0.3-0.8 [facility] Comment on above: Performed By: #### P OCGLUC #### [facility] [address] [place] [address] Dr. Juliet García Monocytes/100 WBC (Bld) 9.9 % Normal 1.7-12.0 [facility] Comment on above: Performed By: #### P OCGLUC #### [facility] [address] [place] [address] Dr. Juliet García NEUT # 3.7 103/ul Normal 1.4-6.5 [facility] Comment on above: Performed By: #### P OCGLUC #### [facility] [address] [place] [address] Dr. Juliet García Neutrophils/100 WBC (Bld) 54.4 % Normal 43.0-75.0 [facility] Comment on above: Performed By: #### P OCGLUC #### [facility] [address] [place] [address] Dr. Juliet García Platelet mean volume (Bld) [Entitic vol] 9.0 fL Critically low 9.5-13.5 [facility] Comment on above: Performed By: #### P OCGLUC #### [facility] [address] [place] [address] Dr. Juliet García PLT 211 103/ul Normal 150-450 [facility] Comment on above: Performed By: #### P OCGLUC #### [facility] [address] [address] [address] Juliet García RBC 4.46 106/ul Critically low 4.70-6.10 [facility] Comment on above: Performed By: #### P OCGLUC #### [facility] [address] [address] [address] Juliet García WBC 6.8 103/ul Normal 4.0-11.0 [facility] Comment on above: Performed By: #### P OCGLUC #### [facility] [address] [address] [address] Juliet García POINT OF CARE GLUCOSEon 10-12 Glucose [Mass/Vol] 100 mg/dL Normal 74-106 [facility] Comment on above: Performed By: #### P OCGLUC #### [facility] [address] [place] [address] Dr. Juliet García Glucose [Mass/Vol] 94 mg/dL Normal 74-106 [facility] Comment on above: Performed By: #### A 1C #### [facility] [address] [place] [address] Dr. Juliet García PROF CHEM 8 (BAS METB)on Anion gap [Moles/Vol] 14.0 mmol/L Normal [facility] Comment on above: Performed By: #### B MP #### [facility] [address] [place] [address] Dr. Juliet García Calcium [Mass/Vol] 9.0 mg/dL Normal 8.5-10.1 [facility] Comment on above: Performed By: #### B MP #### [facility] [address] [place] [address] Dr. Juliet García Chloride [Moles/Vol] 107 mmol/L Normal 98-107 [facility] Comment on above: Performed By: #### B MP #### [facility] [address] [place] [address] Dr. Juliet García CO2 [Moles/Vol] 28.7 mmol/L Normal 21.0-32.0 [facility] Comment on above: Performed By: #### B MP #### [facility] [address] [address] [address] Juliet García Creatinine [Mass/Vol] 1.41 mg/dL Critically high 0.70-1.30 [facility] Comment on above: Performed By: #### B MP #### [facility] [address] [address] [address] Juliet García EGFR-AF [place] >60 Normal >=60 [facility] Comment on above: Performed By: #### B MP #### [facility] [address] [address] [address] Juliet García EGFR-NON AF [place] 50 mL/min/1.73m2 Critically low >=60 [facility] Comment on above: Performed By: #### B MP #### [facility] [address] [address] [address] Juliet García Glucose [Mass/Vol] 95 mg/dL Normal 74-106 [facility] Comment on above: Performed By: #### B MP #### [facility] [address] [address] [address] Juliet García Potassium [Moles/Vol] 4.7 mmol/L Normal 3.5-5.1 [facility] Comment on above: Performed By: #### B MP #### [facility] [address] [address] [address] Juliet García Sodium [Moles/Vol] 145 mmol/L Normal 136-145 [facility] Comment on above: Performed By: #### B MP #### [facility] [address] [address] [address] Juliet García Urea nitrogen [Mass/Vol] 25.0 mg/dL Critically high 7.0-18.0 [facility] Comment on above: Performed By: #### B MP #### [facility] [address] [address] [address] Juliet García Urea nitrogen/Creatinine [Mass ratio] 17.7 mg/mg Normal [facility] Comment on above: Performed By: #### B MP #### [facility] [address] [place], [place] [address] Dr. Juliet García Office Visiton 07-31-2022 Follow-up visit [id number] Carlos Locke Leni 1955 M Date Provider Department Center 07/31/2022 BENTLEY MENDOZA CARD [facility] Family History Problem Relation Age of Onset Stroke Father Family Status - Relation Status Age at Father Level of Service:04706 DE OFFICE/OUTPATIENT ESTABLISHED MOD MDM 30-39 MIN Reason for Visit and Comments: Hyperlipidemia [182] Hypertension [546768] history of PE [Other] Normal [facility] CULTURE WOUNDon 07-24-2022 CULTURE WOUND Culture Observations : No growth of anaerobes at 72 hours. Isolate 1 Stenotrophomonas maltophilia Moderate growth of ORGANISM 1 Stenotrophomonas maltophilia ANTIBIOTIC M.I.C RX STATUS Levofloxacin 1 S F Trimethoprim/Sulfameth oxazole <=[address] [facility] Comment on above: Performed By: #### W OUNDCX ####[facility] [address] [place], [place] [address]CwDr. Juliet García GLYCOHEMOGLOBIN A1Con 2022 ADA RECOMMENDATION SEE BELOW Normal [facility] Comment on above: Result Comment: ADA RECOMMENDED LIMIT 4.0 - 6.0 ADA THERAPEUTIC TARGET < 7.0 ACTION SUGGESTED > 7.0 Performed By: #### A 1C #### [facility] [address] [address] [address] Juliet García Glucose [Mass/Vol] 111 mg/dL Normal [facility] Comment on above: Performed By: #### A 1C #### [facility] [address] [place], [place] [address] Dr. Juliet García HbA1c (Bld) [Mass fraction] 5.5 % Normal 4.5-6.2 [facility] Comment on above: Performed By: #### A 1C #### [facility] [address] [place], [place] [address] Dr. Juliet García ECHOCARDIO M/2D COMPLETEon 1 08-29-2021 ECHOCARDIO M/2D COMPLETE Patient: CARLOS LOCKE Exam Date: 06/28/2022 : 1955 Gender:M Ordering : DR LOLY BARNARD M.D. Admission #: [id number] Family : Order #: [id number] CLICK HERE TO VIEW EXAM ECHOCARDIOGRAM REPORT [...] M.D. on 07/04/2022 at 13:38 Normal [facility] URIC ACID SERUMon 06-10-2022 Urate [Mass/Vol] 6.9 mg/dL Normal 3.5-7.2 [facility] Comment on above: Performed By: #### A 1C #### [facility] [address] [place] [address] Dr. Juliet García XR KUB 1 VIEWon [...] RACHEAL GRAVES Date: 2022-05-28 07:31 Normal [facility] CBC AUTO DIFFon 05-03-2022 BASO # 0.1 103/ul Normal 0.0-0.1 [facility] Comment on above: Performed By: #### C BC #### [facility] [address] [address] [address] Juliet García Basophils/100 WBC (Bld) 0.9 % Normal 0.2-2.0 [facility] Comment on above: Performed By: #### C BC #### [facility] [address] [address] [address] Juliet García EO # 0.4 103/ul Normal 0.0-0.7 [facility] Comment on above: Performed By: #### C BC #### [facility] [address] [address] [address] Juliet García Eosinophils/100 WBC (Bld) 5.2 % Normal 0.9-7.0 [facility] Comment on above: Performed By: #### C BC #### [facility] [address] [place] [address] Dr. Juliet García Erythrocyte distribution width (RBC) [Ratio] 13.6 % Normal 11.0-15.0 [facility] Comment on above: Performed By: #### C BC #### [facility] [address] [place] [address] Dr. Juliet García Hematocrit (Bld) [Volume fraction] 40.5 % Critically low 42.0-54.0 [facility] Comment on above: Performed By: #### C BC #### [facility] [address] [place] [address] Dr. Juliet García Hemoglobin (Bld) [Mass/Vol] 13.7 g/dL Critically low 14.0-18.0 [facility] Comment on above: Performed By: #### C BC #### [facility] [address] [place] [address] Dr. Juliet García IG # 0.02 10e3/ul Normal 0.00-0.03 [facility] Comment on above: Performed By: #### C BC #### [facility] [address] [address] [address] Juliet García IG % 0.3 % Normal 0.0-0.5 [facility] Comment on above: Performed By: #### C BC #### [facility] [address] [address] [address] Juliet García LYMPH # 1.9 103/ul Normal 1.2-3.8 [facility] Comment on above: Performed By: #### C BC #### [facility] [address] [place] [address] Dr. Juliet García Lymphocytes/100 WBC (Bld) 27.7 % Normal 20.5-60.0 [facility] Comment on above: Performed By: #### C BC #### [facility] [address] [place] [address] Dr. Juliet García MANUAL DIFF REQ NO Normal [facility] Comment on above: Performed By: #### C BC #### [facility] [address] [place] [address] Dr. Juliet García MCH (RBC) [Entitic mass] 33.3 pg Normal 25.9-34.0 [facility] Comment on above: Performed By: #### C BC #### [facility] [address] [place] [address] Dr. Juliet García MCHC (RBC) [Mass/Vol] 33.8 g/dL Normal 29.9-35.2 [facility] Comment on above: Performed By: #### C BC #### [facility] [address] [place] [address] Dr. Juliet García MCV (RBC) [Entitic vol] 98.3 fL Critically high 80.0-94.0 [facility] Comment on above: Performed By: #### C BC #### [facility] [address] [place] [address] Dr. Juliet García MONO # 0.7 103/ul Normal 0.3-0.8 [facility] Comment on above: Performed By: #### C BC #### [facility] [address] [place] [address] Dr. Juliet García Monocytes/100 WBC (Bld) 9.9 % Normal 1.7-12.0 [facility] Comment on above: Performed By: #### C BC #### [facility] [address] [address] [address] Juliet García NEUT # 3.8 103/ul Normal 1.4-6.5 [facility] Comment on above: Performed By: #### C BC #### [facility] [address] [address] [address] Juliet García Neutrophils/100 WBC (Bld) 56.0 % Normal 43.0-75.0 [facility] Comment on above: Performed By: #### C BC #### [facility] [address] [address] [address] Juliet García Platelet mean volume (Bld) [Entitic vol] 9.0 fL Critically low 9.5-13.5 [facility] Comment on above: Performed By: #### C BC #### [facility] [address] [place] [address] Dr. Juliet García PLT 201 103/ul Normal 150-450 [facility] Comment on above: Performed By: #### C BC #### [facility] [address] [place] [address] Dr. Juliet García RBC 4.12 106/ul Critically low 4.70-6.10 [facility] Comment on above: Performed By: #### C BC #### [facility] [address] [place] [address] Dr. Juliet García WBC 6.7 103/ul Normal 4.0-11.0 [facility] Comment on above: Performed By: #### C BC #### [facility] [address] [place] [address] Dr. Juliet García GLYCOHEMOGLOBIN A1Con 2021 ADA RECOMMENDATION SEE BELOW Normal [facility] Comment on above: Result Comment: ADA RECOMMENDED LIMIT 4.0 - 6.0 ADA THERAPEUTIC TARGET < 7.0 ACTION SUGGESTED > 7.0 Performed By: #### A 1C #### [facility] [address] [place] [address] Dr. Juliet García Glucose [Mass/Vol] 108 mg/dL Normal [facility] Comment on above: Performed By: #### A 1C #### [facility] [address] [address] [address] Juliet García HbA1c (Bld) [Mass fraction] 5.4 % Normal 4.5-6.2 [facility] Comment on above: Performed By: #### A 1C #### [facility] [address] [address] [address] Juliet García LIPID PROFILEon 05-03-2022 CHOL-HDL RATIO NORM SEE BELOW Normal [facility] Comment on above: Result Comment: 3.3 - 4.4 LOW RISK 4.4 - 7.1 AVERAGE RISK 7.1 - 11.0 MODERATE RISK >11.0 HIGH RISK Performed By: #### L IPID, CMP #### [facility] [address] [address] [address] Juliet García Cholesterol [Mass/Vol] 154 mg/dL Normal <=200 [facility] Comment on above: Performed By: #### L IPID, CMP #### [facility] [address] [address] [address] Juliet García Cholesterol in HDL [Mass/Vol] 29 mg/dL Critically low 40-60 [facility] Comment on above: Performed By: #### L IPID, CMP #### [facility] [address] [address] [address] Juliet García Cholesterol in LDL [Mass/Vol] 64.2 mg/dL Normal [facility] Comment on above: Performed By: #### L IPID, CMP #### [facility] [address] [address] [address] Juliet García Cholesterol.total/Ch olesterol in HDL [Mass ratio] 5.3 {ratio} Normal [facility] Comment on above: Performed By: #### L IPID, CMP #### [facility] [address] [address] [address] Juliet García HDL NORMAL > or = 60 mg/dl - LO W CARDIOVASCULAR RISK <40 mg/dl - HIGH CARDIOVASCULAR RISK Normal [facility] Comment on above: Performed By: #### L IPID, CMP #### [facility] [address] [address] [address] Juliet García LDL CALC NORMAL SEE BELOW Normal [facility] Comment on above: Result Comment: <100 mg/dl OPTIMAL 100 - 129 mg/dl NEAR OR ABOVE OPTIMAL 130 - 159 mg/dl BORDERLINE HIGH 160 - 189 mg/dl HIGH >190 mg/dl VERY HIGH Performed By: #### L IPID, CMP #### [facility] [address] [address] [address] Juliet García Triglyceride [Mass/Vol] 304 mg/dL Critically high <=150 [facility] Comment on above: Performed By: #### L IPID, CMP #### [facility] [address] [address] [address] Juliet García VLDL CALC 60.8 mg/dL Normal [facility] Comment on above: Performed By: #### L IPID, CMP #### [facility] [address] [place] [address] Dr. Juliet García PROF 14(COMP METB)on 05-03- 022 Albumin [Mass/Vol] 3.7 g/dL Normal 3.4-5.0 [facility] Comment on above: Performed By: #### L IPID, CMP #### [facility] [address] [place] [address] Dr. Juliet García Albumin/Globulin [Mass ratio] 1.1 {ratio} Normal [facility] Comment on above: Performed By: #### L IPID, CMP #### [facility] [address] [address] [address] Juliet García ALP [Catalytic activity/Vol] 87 U/L Normal 46-116 [facility] Comment on above: Performed By: #### L IPID, CMP #### [facility] [address] [place] [address] Dr. Juliet García ALT [Catalytic activity/Vol] 52 U/L Normal 16-63 [facility] Comment on above: Performed By: #### L IPID, CMP #### [facility] [address] [place] [address] Dr. Juliet García Anion gap [Moles/Vol] 11.5 mmol/L Normal [facility] Comment on above: Performed By: #### L IPID, CMP #### [facility] [address] [place] [address] Dr. Juliet García AST [Catalytic activity/Vol] 27 U/L Normal 15-37 [facility] Comment on above: Performed By: #### L IPID, CMP #### [facility] [address] [place] [address] Dr. Juliet García Bilirubin [Mass/Vol] 0.4 mg/dL Normal 0.2-1.0 [facility] Comment on above: Performed By: #### L IPID, CMP #### [facility] [address] [place] [address] Dr. Juliet García Calcium [Mass/Vol] 8.7 mg/dL Normal 8.5-10.1 [facility] Comment on above: Performed By: #### L IPID, CMP #### [facility] [address] [place] [address] Dr. Juliet García Chloride [Moles/Vol] 106 mmol/L Normal 98-107 [facility] Comment on above: Performed By: #### L IPID, CMP #### [facility] [address] [place] [address] Dr. Juliet García CO2 [Moles/Vol] 28.2 mmol/L Normal 21.0-32.0 [facility] Comment on above: Performed By: #### L IPID, CMP #### [facility] [address] [place] [address] Dr. Juliet García Creatinine [Mass/Vol] 1.21 mg/dL Normal 0.70-1.30 [facility] Comment on above: Performed By: #### L IPID, CMP #### [facility] [address] [place] [address] Dr. Juliet García EGFR-AF [place] >60 Normal >=60 [facility] Comment on above: Performed By: #### L IPID, CMP #### [facility] [address] [place] [address] Dr. Juliet García EGFR-NON AF [place] =60 Normal >=60 [facility] Comment on above: Performed By: #### L IPID, CMP #### [facility] [address] [place] [address] Dr. Juliet García Globulin (S) [Mass/Vol] 3.4 g/dL Normal [facility] Comment on above: Performed By: #### L IPID, CMP #### [facility] [address] [place] [address] Dr. Juliet García Glucose [Mass/Vol] 100 mg/dL Normal 74-106 [facility] Comment on above: Performed By: #### L IPID, CMP #### [facility] [address] [place] [address] Dr. Juliet García Potassium [Moles/Vol] 4.7 mmol/L Normal 3.5-5.1 [facility] Comment on above: Performed By: #### L IPID, CMP #### [facility] [address] [place] [address] Dr. Juliet García Protein [Mass/Vol] 7.1 g/dL Normal 6.4-8.2 [facility] Comment on above: Performed By: #### L IPID, CMP #### [facility] [address] [place] [address] Dr. Juliet García Sodium [Moles/Vol] 141 mmol/L Normal 136-145 [facility] Comment on above: Performed By: #### L IPID, CMP #### [facility] [address] [place] [address] Dr. Juliet García Urea nitrogen [Mass/Vol] 23.0 mg/dL Critically high 7.0-18.0 [facility] Comment on above: Performed By: #### L IPID, CMP #### [facility] [address] [place] [address] Dr. Juliet García Urea nitrogen/Creatinine [Mass ratio] 19.0 mg/mg Normal [facility] Comment on above: Performed By: #### L IPID, CMP #### [facility] [address] [place] [address] Dr. Juliet García VC CONSULT FOLLOWUPon 2021 VC CONSULT FOLLOWUP Patient: CARLOS LOCKE Exam Date: 04/08/2022 : 1955 Gender:M Ordering : DR RACHEAL GRAVES M.D. Admission #: [id number] Family : Order #: [id number] CLICK HERE [...] Graves MD on 04/08/2022 at 11:[address] [facility] VC EXT VENOUS RT LIMITEDon 0 04-08-2022 VC EXT VENOUS RT LIMITED Patient: CARLOS LOCKE Exam Date: 04/08/2022 : 1955 Gender:M Ordering : DR RACHEAL GRAVES M.D. Admission #: [id number] Family : Order #: [id number] CLICK HERE TO VIEW EXAM RADIOLOGY REPORT [...] Graves MD on 04/08/2022 at 11:[address] [facility] VC INJ FOAM SCLERO W US MLTI on 04-03-2022 VC INJ FOAM SCLERO W US MLTI Patient: CARLOS LOCKE Exam Date: 04/03/2022 : 1955 Gender:M Ordering : DR RACHEAL GRAVES M.D. Admission #: [id number] Family : DR NATHALY BOONE . Order #: [id number] CLICK HERE TO VIEW EXAM RADIOLOGY REPORT [...] av (more content not included)... Normal [facility] VC CONSULT FOLLOWUPon 2021 VC CONSULT FOLLOWUP Patient: CARLOS LOCKE Exam Date: 03/25/2022 : 1955 Gender:M Ordering : DR RACHEAL GRAVES M.D. Admission #: [id number] Family : Order #: [id number] CLICK HERE TO VIEW EXAM RADIOLOGY REPORT [...] Akash Kenny M.D. on 03/25/2022 at 08:[address] [facility] VC EXT VENOUS RT LIMITEDon 0 03-25-2022 VC EXT VENOUS RT LIMITED Patient: CARLOS LOCKE Exam Date: 03/25/2022 : 1955 Gender:M Ordering : DR RACHEAL GRAVES M.D. Admission #: [id number] Family : Order #: [id number] CLICK HERE TO VIEW EXAM RADIOLOGY REPORT [...] Kenny M.D. on 03/25/2022 at 08:[address] [facility] VC ENDOVENOUS ABL 1ST V RTon 03-19-2022 VC ENDOVENOUS ABL 1ST V RT Patient: CARLOS LOCKE Exam Date: 03/19/2022 : 1955 Gender:M Ordering : DR RACHEAL GRAVES M.D. Admission #: [id number] Family : Order #: [id number] CLICK HERE TO VIEW EXAM RADIOLOGY REPORT [...] Graves MD on 03/19/2022 at 08:[address] [facility] VC CONSULT FOLLOWUPon 2021 VC CONSULT FOLLOWUP Patient: CARLOS LOCKE Exam Date: 02/18/2022 : 1955 Gender:M Ordering : DR RACHEAL GRAVES M.D. Admission #: [id number] Family : Order #: [id number] CLICK HERE TO VIEW EXAM RADIOLOGY REPORT [...] Graves MD on 02/18/2022 at 09:[address] [facility] VC EXT VENOUS LT LIMITEDon 0 02-18-2022 VC EXT VENOUS LT LIMITED Patient: CARLOS LOCKE Exam Date: 02/18/2022 : 1955 Gender:M Ordering : DR RACHEAL GRAVES M.D. Admission #: [id number] Family : Order #: [id number] CLICK HERE TO VIEW EXAM RADIOLOGY REPORT [...] varicose veins remain off of SSV and pharmacy teacher mid posterior calf. *Exam performed in accordance with [employer] practice guidelines- Peripheral venous ultrasound, October 07, 2009. 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 VC INJ FOAM SCLERO W US MLTI on 02-13-2022 VC INJ FOAM SCLERO W US MLTI Patient: CARLOS LOCKE Exam Date: 02/13/2022 : 1955 Gender:M Ordering : DR RACHEAL GRAVES M.D. Admission #: [id number] Family : Order #: [id number] CLICK HERE TO VIEW EXAM RADIOLOGY REPORT [...] Kenny M.D. on 02/13/2022 at 10:[address] [facility] VC CONSULT FOLLOWUPon 2021 VC CONSULT FOLLOWUP Patient: CARLOS LOCKE Exam Date: 02/06/2022 : 1955 Gender:M Ordering : DR RACHEAL GRAVES M.D. Admission #: [id number] Family : Order #: [id number] CLICK HERE TO VIEW EXAM RADIOLOGY REPORT [...] M.D. on 02/06/2022 at 09:53 Normal [facility] VC EXT VENOUS LT LIMITEDon 0 02-06-2022 VC EXT VENOUS LT LIMITED Patient: CARLOS LOCKE Exam Date: 02/06/2022 : 1955 Gender:M Ordering : DR RACHEAL GRAVES M.D. Admission #: [id number] Family : Order #: [id number] CLICK HERE TO VIEW EXAM RADIOLOGY REPORT [...] Kenny M.D. on 02/06/2022 at 09:[address] [facility] GLYCOHEMOGLOBIN A1Con 2021 ADA RECOMMENDATION SEE BELOW Normal [facility] Comment on above: Result Comment: ADA RECOMMENDED LIMIT 4.0 - 6.0 ADA THERAPEUTIC TARGET < 7.0 ACTION SUGGESTED > 7.0 Performed By: #### A 1C #### [facility] [address] [address] [address] Juliet García Glucose [Mass/Vol] 108 mg/dL Normal [facility] Comment on above: Performed By: #### A 1C #### [facility] [address] [address] [address] Juliet García HbA1c (Bld) [Mass fraction] 5.4 % Normal 4.5-6.2 [facility] Comment on above: Performed By: #### A 1C #### [facility] [address] [address] [address] Juliet García PROF 14(COMP METB)on 022 Albumin [Mass/Vol] 4.0 g/dL Normal 3.4-5.0 [facility] Comment on above: Performed By: #### C MP ####[facility] [address] [id number]. Juliet García Albumin/Globulin [Mass ratio] 1.2 {ratio} Normal [facility] Comment on above: Performed By: #### C MP ####[facility] [address] [address]Dr. Juliet García ALP [Catalytic activity/Vol] 89 U/L Normal 46-116 [facility] Comment on above: Performed By: #### C MP ####[facility] [address] [address]Dr. Juliet García ALT [Catalytic activity/Vol] 81 U/L Critically high 16-63 [facility] Comment on above: Performed By: #### C MP ####[facility] [address] [address]Dr. Juliet García Anion gap [Moles/Vol] 13.6 mmol/L Normal [facility] Comment on above: Performed By: #### C MP ####[facility] [address] [address]Dr. Juliet García AST [Catalytic activity/Vol] 32 U/L Normal 15-37 [facility] Comment on above: Performed By: #### C MP ####[facility] [address] [address]Dr. Juliet García Bilirubin [Mass/Vol] 0.5 mg/dL Normal 0.2-1.0 [facility] Comment on above: Performed By: #### C MP ####[facility] [address] [address]Dr. Juliet García Calcium [Mass/Vol] 8.9 mg/dL Normal 8.5-10.1 [facility] Comment on above: Performed By: #### C MP ####[facility] [address] [place], [place] [address]Dr. Juliet García Chloride [Moles/Vol] 106 mmol/L Normal 98-107 [facility] Comment on above: Performed By: #### C MP ####[facility] [address] [address]Dr. Juliet García CO2 [Moles/Vol] 27.1 mmol/L Normal 21.0-32.0 [facility] Comment on above: Performed By: #### C MP ####[facility] [address] [address]Dr. Juliet García Creatinine [Mass/Vol] 1.46 mg/dL Critically high 0.70-1.30 [facility] Comment on above: Performed By: #### C MP ####[facility] [address] [address]Dr. Juliet García EGFR-AF [place] 59 mL/min/1.73m2 Critically low >=60 [facility] Comment on above: Performed By: #### C MP ####[facility] [address] [address]Dr. Juliet García EGFR-NON AF [place] 48 mL/min/1.73m2 Critically low >=60 [facility] Comment on above: Performed By: #### C MP ####[facility] [address] [address]Dr. Juliet García Globulin (S) [Mass/Vol] 3.4 g/dL Normal [facility] Comment on above: Performed By: #### C MP ####[facility] [address] [address]Dr. Juliet García Glucose [Mass/Vol] 93 mg/dL Normal 74-106 [facility] Comment on above: Performed By: #### C MP ####[facility] [address] [address]Dr. Juliet García Potassium [Moles/Vol] 4.7 mmol/L Normal 3.5-5.1 [facility] Comment on above: Performed By: #### C MP ####[facility] [address] [address]Dr. Juliet García Protein [Mass/Vol] 7.4 g/dL Normal 6.4-8.2 [facility] Comment on above: Performed By: #### C MP ####[facility] [address] [address]Dr. Juliet García Sodium [Moles/Vol] 142 mmol/L Normal 136-145 [facility] Comment on above: Performed By: #### C MP ####[facility] [address] [address]Dr. Juliet García Urea nitrogen [Mass/Vol] 25.0 mg/dL Critically high 7.0-18.0 [facility] Comment on above: Performed By: #### C MP ####[facility] [address] [place], [place] [address]Cj. Juliet García Urea nitrogen/Creatinine [Mass ratio] 17.1 mg/mg Normal [facility] Comment on above: Performed By: #### C MP ####[facility] [address] [place], [place] [address]Aq. Juliet García VC ENDOVENOUS ABL 1ST V LTon 01-30-2022 VC ENDOVENOUS ABL 1ST V LT Patient: CARLOS LOCKE Exam Date: 01/30/2022 : 1955 Gender:M Ordering : DR RACHEAL GRAVES M.D. Admission #: [id number] Family : Order #: [id number] CLICK HERE TO VIEW EXAM RADIOLOGY REPORT [...] M.D. on 01/30/2022 at 12:00 Normal [facility] POINT OF CARE GLUCOSEon 01-11 Glucose [Mass/Vol] 84 mg/dL Normal 74-106 [facility] Comment on above: Performed By: #### P OCGLUC #### [facility] [address] [address] [address] Juliet García VC COMP CONSULTATIONon 01-21 VC COMP CONSULTATION Patient: CARLOS LOCKE Exam Date: 01/21/2022 : 1955 Gender:M Ordering : DR RACHEAL GRAVES M.D. Admission #: [id number] Family : Order #: [id number] CLICK HERE TO VIEW EXAM RADIOLOGY REPORT [...] for years. The patient is retired from [email or web address] after working 42 years. The patient denies [...] additional information, and this was performed [facility]. See separate history and physical [...] incompetent branch saphenous tributary/varicose veins. Bilateral incompetent pharmacy teacher veins. PHYSICAL EXAM: The right leg demonstrates [...] pulses were present bilaterally. IMPRESSION: 1. Bilateral [id number] great saphenous vein and mild right small [...] Graves MD on 01/21/2022 at 11:[address] [facility] VC VENOUS REFLUX MARIE LMTon 0 01-21-2022 VC VENOUS REFLUX MARIE LMT Patient: CARLOS LOCKE Exam Date: 01/21/2022 : 1955 Gender:M Ordering : DR RACHEAL GRAVES M.D. Admission #: [id number] Family : DR NATHALY BOONE . Order #: [id number] CLICK HERE TO VIEW EXAM RADIOLOGY REPORT [...] Compressibility: Normal. Flow: Mild deep venous reflux. Pharmacy Account Director: Post/prox calf 5.9mm, 0.7s reflux. Prox/med calf [...] Graves MD on 01/21/2022 at 10:[address] [facility] POINT OF CARE GLUCOSEon 06- Glucose [Mass/Vol] 87 mg/dL Normal 74-106 [facility] Comment on above: Performed By: #### P OCGLUC ####[facility] [address] [place], [place] [address]Og. Juliet García SURGICAL PATHOLOGYon 021 SURGICAL PATHOLOGY Specimen #: [id number] Submitting Physician: JULIET GARCÍA M.D. FINAL DIAGNOSIS [place], [place]; [id number] (12/07/2020) Liver, mass , biopsy (A1, A2, [...] do not hesitate to contact us at [phone] with questions or if additional follow up information becomes available. This case was reviewed in conjunction with the GI pathology fellow, Apoorva Diallo MD. The following stains were performed at the [facility] in order to further characterize [...] in-situ hybridization tests have been determined by [facility]'s [facility] [place] [facility]) in a manner consistent with CLIA requirements. One or more of these tests have not been cleared or approved by the FDA. [facility] is regulated under CLIA as qualified to perform high-complexity testing. These tests are used for clinical purposes. They should not be regarded as investigational or for research. Nicolasa Cheema M.D. (Electronic Signature) _ SPECIMEN SUBMITTED A: 12 slides [id number] CLINICAL DATA Mass Date of Report: 03/27/2021 Date of Procedure: 03/16/2021 Date of Receipt: 03/15/2021 Submitted by: JULIET GARCÍA M.D. Location: Diagnostic interpretation performed at [facility], [address] [place] [address]. CLIA Number: [id number] Normal [facility] Comment on above: Performed By: #### S #### See report for performing lab information. Vital Signs Date Time Vital Sign Value Performing Clinician Facility 11-04-2023 08:38-0400 Blood Pressure Location LIZ DAVID [facility] 11-04-2023 08:38-0400 Diastolic blood pressure 82 mm[Hg] LIZ DAVID [facility] 11-04-2023 08:38-0400 Heart rate 80 /min LIZ DAVID [facility] 11-04-2023 08:38-0400 Respiratory rate 16 /min LIZ DAVID [facility] 11-04-2023 08:38-0400 Systolic blood pressure 131 mm[Hg] LIZ DAVID [facility] 06-03-2023 09:59-0500 Blood Pressure Location LIZ DAVID [facility] 06-03-2023 09:59-0500 Diastolic blood pressure 74 mm[Hg] LIZ DAVID [facility] 06-03-2023 09:59-0500 Heart rate 70 /min LIZ DAVID [facility] 06-03-2023 09:59-0500 Respiratory rate 16 /min LIZ DAVID [facility] 06-03-2023 09:59-0500 Systolic blood pressure 138 mm[Hg] LIZ HERNANDEZ [facility] 05-23-2022 09:45-0500 Body height 187.96 cm Alejandra Olexa Other [facility] 05-23-2022 09:45-0500 Body mass index (BMI) [Ratio] 40.57 kg/m2 Alejandra Olexa Other [facility] Other 05-23-2022 09:45-0500 Body weight 143.34 kg Alejandra Olexa Other [facility] Other 08-07-2021 14:15-0500 Body height 187.96 cm Alejandra Olexa Other [facility] Other 08-07-2021 14:15-0500 Body mass index (BMI) [Ratio] 40.64 kg/m2 Alejandra Olexa Other [facility] Other 08-07-2021 14:15-0500 Body weight 143.61 kg Alejandra Olexa Other [facility] Other 04-12-2021 10:30-0400 Body height 187.96 cm Racheal Daniels Other [facility] Other 04-12-2021 10:30-0400 Body mass index (BMI) [Ratio] 41.75 kg/m2 Racheal Daniels Other [facility] Other 04-12-2021 10:30-0400 Body weight 147.51 kg Racheal Daniels Other [facility] Other 04-12-2021 10:30-0400 Diastolic blood pressure 71 mm[Hg] Racheal Daniels Other [facility] Other 04-12-2021 10:30-0400 Systolic blood pressure 131 mm[Hg] Racheal Daniels Other [facility] Other Encounters Encounter Date Encounter Type Care Provider Facility Start: 05-27-2024 ambulatory PA-C LIZ HERNANDEZ Facility:[facility] Start: 01-12-2024 End: 01-12-2024 ambulatory HARINDER TORRESERER Not Available Start: 11-04-2023 End: 11-04-2023 ambulatory PA-C LIZ HERNANDEZ Facility:[facility] Start: 11-04-2023 End: 11-04-2023 Patient encounter procedure LIZ HERNANDEZ [facility] Start: 07-23-2023 End: 07-23-2023 ambulatory HARINDER DUNLAPR Not Available Start: 06-30-2023 End: 07-01-2023 ambulatory Donaldo Sparrow MD Facility:[facility] Start: 06-03-2023 End: 06-03-2023 ambulatory PA-C LIZ HERNANDEZ Facility:[facility] Start: 06-03-2023 End: 06-03-2023 Patient encounter procedure LIZ HERNANDEZ [facility] Start: 01-06-2023 End: 01-07-2023 ambulatory Donaldo Sparrow MD Facility:[facility] Start: 12-05-2022 End: 12-06-[address] BEKAH BERRIOS . Facility: Start: 12-03-2022 End: 12-04-[address] BEKAH BERRIOS . Facility: Start: 11-29-2022 End: 11-30-2022 ambulatory NARENDRANATH LAKSHMIPATHY . Facility:[facility] Start: 11-12-2022 End: 11-13-[address] BEKAH BERRIOS . Facility:[facility] Start: 11-05-2022 End: 11-06-[address] BEKAH BERRIOS . Facility:[facility] Start: 10-28-2022 End: 10-29-[address] BEKAH BERRIOS . Facility:[facility] Start: 10-21-2022 End: 10-21-[address] BEKAH BERRIOS . Facility:[facility] Start: 10-18-2022 Encounter for preprocedural cardiovascular examination [facility] Start: 10-18-2022 Encounter for preprocedural laboratory examination [facility] Start: 10-16-[address] BEKAH BERRIOS [...] ambulatory DR BEKAH BERRIOS . Facility:[facility] Start: 08-26-2022 End: 08-27-[address] BEKAH BERRIOS . Facility:[facility] Start: 08-06-2022 End: 08-07-2022 ambulatory TONIO BELL Facility:[facility] Start: 07-31-2022 End: 07-31-2022 ambulatory [facility] Start: 07-31-2022 End: 08-01-[address] [...] 05-23-2022 End: 05-23-2022 ambulatory Alejandra Cain Other [facility] Other Start: 05-23-2022 Office outpatient vi sit 15 minutes Alejandra Cain [facility] Start: 05-03-2022 End: 05-04-[address] BEKAH BERRIOS . Facility:[facility] Start: 04-23-2022 End: 04-24-[address] NATHALY BOONE . Facility:[facility] Start: 04-08-2022 End: 04-09-[address] RACHEAL GRAVES Facility:[facility] Start: 04-04-2022 End: 04-05-2022 ambulatory RODRIGO JOHNSON . Facility:[facility] Start: 04-03-2022 End: 04-04-[address] RACHEAL GRVAES Facility:[facility] Start: 03-25-2022 End: 03-26-[address] RACHEAL GRAVES Facility:[facility] Start: 03-19-2022 End: 03-20-[address] RACHEAL GRAVES Facility:[facility] Start: 02-18-2022 End: 02-19-[address] RACHEAL GRAVES Facility:[facility] Start: 02-17-[address] BEKAH BERRIOS . Facil ity:[facility] Start: 02-14-2022 End: 02-15-[address] BEKAH BERRIOS . Facility:[facility] Start: 02-13-2022 End: 02-14-[address] BEKAH BERRIOS . Facility:[facility] Start: 02-06-2022 End: 02-07-2022 [...] 08-07-2021 End: 08-07-2021 ambulatory Alejandra Cain Other [facility] Other Start: 08-07-2021 Office outpatient vi sit 15 minutes Alejandra Cain [facility] Start: 04-12-2021 Office outpatient vi sit 15 minutes Racheal Daniels [facility] Procedures Date Procedure Procedure Detail Performing Clinician Start: 05-03-[address] RACHEAL GRAVES Comment on above: Performed By: #### P SAD #### [facility] [address] [place] [address] Dr. Juliet García Start: 12-07-2020 CT guided biopsy NATALIE HERNANDEZ Comment on above: LIVER. NO SEDATION. Arthroscopy of knee LIZ HERNANDEZ Bilateral cataracts (disorder) LIZ HERNANDEZ H/O: vasectomy LIZ ARGUETA Y Titanium (substance) JOSE FRANCORY Comment on above: Toe Tonsillectomy LIZ HERNANDEZ Immunizations Immunization Date Immunization Notes Care Provider Michelle thomas 04-20-2023 SARS-CoV-2 mRNA (tozinameran 5y-11y) vaccine LIZ HERNANDEZ [facility] Comment on above: Result Comment: covi d 19 mRNA (cvs) 04-17-2022 influenza virus vacc ine, unspecified formulation LIZ HERNANDEZ [facility] 03-23-2022 SARS-CoV-2 (COVID-19 ) mRNAMUL.ORD![id number] LIZ HERNANDEZ [facility] 10-23-2021 SARS-CoV-2 mRNA (lobrmqnosdk-lmfj-tqpemd e) vaccine LIZ HERNANDEZ [facility] 05-27-2021 pneumococcal polysaccharide vaccine, 23 valent LIZ HERNANDEZ [facility] 05-06-2021 SARS-CoV-2 (COVID-19 ) mRNA BNT-162b2 vax LIZ HERNANDEZ [facility] Comment on above: Result Comment: 2021: [id number] 04-07-2021 influenza virus vacc ine, unspecified formulation LIZ HERNANDEZ [facility] 09-18-2020 SARS-CoV-2 (COVID-19 ) mRNA BNT-162b2 vax LIZ HERNANDEZ [facility] 04-19-2020 influenza virus vacc ine, unspecified formulation LIZ DAVID [facility] 04-15-2020 influenza virus vacc ine, unspecified formulation LIZ DAVID [facility] 04-20-2018 influenza virus vacc ine, unspecified formulation LIZ DAVID [facility] 03-24-2018 influenza virus vacc ine, unspecified formulation LIZ DAVID [facility] 05-01-2013 influenza virus vacc ine, unspecified formulation LIZ HERNANDEZ [facility] Payers Date Payer Category Payer Medicare 2022 Unknown 2022 Unknown [id number] 2021 Medicare [id number] 2019 Unknown [id number] 2. [id number] 1959 Medicare [id number] 1955 Unknown [id number] 2.16.84 0.1.753303.3.579.2.593 1956 Unknown [id number] 2.16.84 0.1.827895.3.579.2.593 1956 Unknown [id number] 2.16.84 0.1.499048.3.579.2.593 1956 Unknown [id number] 2.16.84 0.1.574383.3.579.2.593 1956 Unknown [id number] 2.16.84 0.1.198170.3.579.2.593 1956 Unknown [id number] 2.16.84 0.1.534152.3.579.2.593 1956 Unknown [id number] 2.16.84 0.1.458744.3.579.2.593 1956 Unknown [id number] 2.16.84 0.1.828460.3.579.2.593 1956 Unknown [id number] 2.16.84 0.1.435153.3.579.2.593 1956 Unknown [id number] 2.16.84 0.1.870178.3.579.2.593 1956 Unknown [id number] 2.16.84 0.1.581984.3.579.2.593 1956 Unknown [id number] 2.16.84 0.1.057727.3.579.2.593 1956 Unknown [id number] 2.16.84 0.1.088477.3.579.2.593 1956 Unknown [id number] 2.16.84 0.1.102657.3.579.2.593 1956 Unknown [id number] 2.16.84 0.1.097276.3.579.2.593 1956 Unknown [id number] 2.16.84 0.1.476028.3.579.2.593 1956 Unknown [id number] 2.16.84 0.1.044861.3.579.2.593 1956 Unknown [id number] 2.16.84 0.1.008230.3.579.2.593 1956 Unknown [id number] 2.16.84 0.1.151934.3.579.2.593 1956 Unknown [id number] 2.16.84 0.1.662244.3.579.2.593 1956 Unknown [id number] 2.16.84 0.1.356658.3.579.2.593 1956 Unknown [id number] 2.16.84 0.1.720680.3.579.2.593 1956 Unknown [id number] 2.16.84 0.1.151559.3.579.2.593 1956 Unknown [id number] 2.16.84 0.1.778663.3.579.2.593 1956 Unknown [id number] 2.16.84 0.1.731338.3.579.2.593 1956 Unknown [id number] 2.16.84 0.1.338872.3.579.2.593 1956 Unknown [id number] 2.16.84 0.1.168691.3.579.2.593 1956 Unknown [id number] 2.16.84 0.1.825564.3.579.2.593 1956 Unknown [id number] 2.16.84 0.1.095476.3.579.2.593 1956 Unknown [id number] 2.16.84 0.1.140148.3.579.2.593 1956 Unknown [id number] 2.16.84 0.1.175476.3.579.2.593 1956 Unknown [id number] 2.16.84 0.1.676024.3.579.2.593 1956 Unknown [id number] 2.16.84 0.1.877558.3.579.2.593 1956 Unknown [id number] 2.16.84 0.1.319564.3.579.2.593 1956 Unknown [id number] 2.16.84 0.1.369811.3.579.2.593 1956 Unknown [id number] 2.16.84 0.1.141023.3.579.2.593 1956 Unknown [id number] 2.16.84 0.1.528988.3.579.2.593 1956 Unknown [id number] 2.16.84 0.1.194107.3.579.2.593 1956 Unknown [id number] 2.16.84 0.1.489509.3.579.2.593 1956 Unknown [id number] 2.16.84 0.1.434391.3.579.2.593 1956 Unknown [id number] 2.16. 840.1.705122.3.579.2.196 1956 Unknown [id number] 2.16. 840.1.101144.3.579.2.196 1956 Unknown [id number] 2.16. 840.1.784057.3.579.2.196 1956 Unknown [id number] 2.16.84 0.1.196063.3.579.2.1259 1956 Unknown [id number] 2.16.84 0.1.313777.3.579.2.1259 1956 Unknown [id number] 2.16.8 40.1.929307.3.579.2.727 1956 Unknown [id number] 2.16.8 40.1.323620.3.579.2.727 1956 Unknown [id number] 2.16.8 40.1.528138.3.579.2.727 Social History Date Type Detail Facility Sex Assigned At [facility] Start: 06-03-2023 End: 11-04-2023 Tobacco smoking status Never smoked tobacco (finding) [facility] Tobacco smoking status Never [facility] Functional Status Date Assessment Result Facility 11-04-2023 Functional Status N/A [facility] 06-03-2023 Functional Status N/A [facility] Clinical Notes 04-12-2021 to 11-04-2023 Note Date [...] Follow these instructions at home: Medicines Take kbns-tzz-lifmaaw and prescription medicines only as told by [...] provider. Document Revised: 09/26/2021 Document Reviewed: 09/26/2021 [employer]ivery Patient Education 2022 [employer]. Follow Up Care 06/03/2023 10:28:55 With:LIZ HERNANDEZ PA-C, URL Address: [facility] [address] [place] [address] [phone] When: Unknown [facility] 06-03-2023 Hospital Discharge instructions Patient Education [...] treatment? Where to find more information [employer] [place] [employer]: www.cancer.org [place] [employer]: www.auanet.org Contact a health care [...] provider. Document Revised: 12/24/2021 Document Reviewed: 12/24/2021 [employer]ivery Patient Education 2022 [employer]. Follow Up Care 05/29/2022 11:47:27 With:DAVID IVAN, LIZ Juarez, URL Address: [place] [id number] When: Unknown Comments:6 mos w/ PSA [facility] 12-03-2022 Note PROCEDURE: XR FOOT L [...] authenticated by: AKASH KENNY Date: 2022-12-03 09:57 [facility] 11-12-2022 Note PROCEDURE: XR FOOT L [...] by: ZAFAR FERRER Date: 2022-11-12 13:59 [facility] 10-22-2022 Note PROCEDURE: XR FOOT [...] by: AKASH KENNY Date: 2022-10-22 07:48 [facility] 10-22-2022 Note PROCEDURE: XR FOOT L T 2V HISTORY: Pain COMPARISON: XR foot left 10/21/2022 FINDINGS: BONES:Multiple intraoperative spot fluoroscopic images demonstrate mechanical fusion of the first metatarsophalangeal joint and resection of head of first proximal phalanx. IMPRESSION: 1. Surgical changes of left first toe as detailed above. Electronically authenticated by: AKASH KENNY Date: 2022-10-22 07:46 [facility] 07-31-2022 Note Currently stable [facility] 07-31-2022 Note Hypertension is well controlled 114/64 Continue lisinopril 5 mg Recent CR elevated 1.59- his cr typically has been 1.2-1.4 - He has been on antibiotics for Lt foot infection- DFU with wound care. [facility] 07-31-2022 Note Lipid abnormalities are currently well controlled with lipitor 20 mg- LDL currently 58.6 on labs 07/26/2022 Liver function 04/2022 were normal [facility] 07-31-2022 Note UTP CARDIOLOGY PROGR ESS [...] RTC 1 year or earlier if needed [facility] 07-31-2022 Note Patient here for 6 [...] All other systems reviewed and are negative. [facility] 07-31-2022 Note CONSULTATION PROCEDURE DATE: 07/31/2022 [...] the clinic in three months' time. [facility] 07-25-2022 Note CONSULTATION CONSULTATION DATE: 07/25/2022 HISTORY OF PRESENT ILLNESS: This is a 66-year-old gentleman who presents to the Pain Clinic today with increased lower back pain. The patient does have chronic bilateral knee pain, but he states those are doing quite well. He did receive a left knee steroid injection in April. The patient just recently returned from a [place] vacation, where he visited multiple [facility] and had a lot of increased [...] and will be contacted upon approval. [facility] 07-24-2022 Note PROCEDURE: XR FOOT [...] by: AKASH KENNY Date: 2022-07-24 10:21 [facility] 06-10-2022 Note PROCEDURE: XR KNEE L T 4V or > HISTORY: Pain in left knee ; chronic left knee pain COMPARISON: XR knee bilateral 05/31/2021 FINDINGS: BONES:Marked narrowing of the medial joint space with suspected subh-wf-ngca articulation. Moderate-marked narrowing of the lateral compartment. Mild narrowing of anterior compartment. Small periarticular osteophytes involving the margins of all 3 compartments. No fracture or dislocation. SOFT TISSUES:No visible soft tissue swelling. EFFUSION:Small joint effusion. OTHER: Negative. IMPRESSION: 1. Marked degenerative joint disease. Stable to minimally progressed. Electronically authenticated by: AKASH KENNY Date: 2022-06-10 19:35 [facility] 05-23-2022 Evaluation note Encounter Date [...] Pain in left knee (ICD-10 - M25.562) [facility] Other 10-11-2022 NoteCONSULTATION CONSULTATION DATE: 04/23/2022 CHIEF [...] the time being. CC: Bekah Berrios M.D.[facility] [id number] NoteCONSULTATION CONSULTATION DATE: 04/04/2022 HISTORY OF PRESENT [...] indicated. Patient agreed with plan of care.[facility] [id number] Note CONSULTATION CONSULTATION DATE: 02/14/2022 HISTORY OF [...] time unless otherwise indicated. Patient acknowledges understanding.[facility] [id number] NoteCONSULTATION PROCEDURE DATE: 02/14/2022 PREOPERATIVE DIAGNOSIS: Bilateral [...] will be followed up in the office.[id number] Evaluation note* Encounter Date Diagnosis Assessment Notes [...] Pain in left knee (ICD-10 - M25.562) [facility] 09-30-2021 Evaluation note* Encounter Date Diagnosis Assessment Notes Treatment Notes Treatment Clinical Notes Mar, Liver hemangioma (ICD-10 - D18.03) 30 Mar, 2021 HODGES (nonalcoholic steatohepatitis) (ICD-10 - K75.81) [facility] Other Evaluation + Plan note Future Appointments Appointment Date:11/04/2023 08:30:00 AM Scheduled Provider:LIZ HERNANDEZ PA-C Location:[facility] Appointment Type:URO Office Visit Diagnostic Tests Pending * PSA Total 06/03/[address] [facility] evaluation + Plan note Future Appointments Appointment Date:05/25/2024 08:40:00 AM Scheduled Provider:LIZ HERNANDEZ PA-C Location:[facility] Appointment Type:URO Office Visit [facility] History general Narrative - Reported* Type Description Date Medical History DM II Medical History HTN Medical History hyperlipidemia Medical History gout Surgical History knee surgery Surgical History tonsillectomy Surgical History vasectomy Surgical History sinus surgery Surgical History back injections Hospitalization History SEE ABOVE SURGICAL HX [facility] Other Hospital course Narrative No data available for this section [facility] progress note No data available for this section [facility] Summary Purpose Family History No Family History [...] section and content) DATE CREATED AUTHOR 03/29/2021 [facility] DATE CREATED AUTHOR AUTHOR'S ORGANIZ ATION 08/06/2022 [facility] DATE CREATED AUTHOR AUTHOR'S ORGANIZ ATION 12/20/2022 [facility] DATE CREATED AUTHOR AUTHOR'S ORGANIZ ATION 07/05/2023 [facility] DATE CREATED AUTHOR AUTHOR'S ORGANIZ ATION 01/12/2024 [facility] DATE CREATED AUTHOR AUTHOR'S ORGANIZ ATION 04/10/2024 [facility] REASON FOR VISIT (unrecogniz ed section and content) PT HERE FOR 4 WEEK FOLLOW UP LIVER LESION LABS WERE ORDERED AT LAST OFFICE VISITBilateral Knee PainRecheck Bilateral Knees Patient Care team informatio n (unrecognized section and content) Personnel Name: BEKAH BERRIOS MD Address: Address: [address] [place] [address] Personnel Name: HARINDER RUGGIERO MD Address: Address: [address] [place] [address] FOR RECORDS PERTAINING TO PATIENTS WHO ARE [...] BE BASED ON THE PRIMARY CLINICAL RECORDS. [facility]. provides no warranty or guarantee of the accuracy or completeness of information in this document.
--- NOTE | 2024-05-06 09:25 | P.CN_ITS ---
Consult Note: HPI Data of Consult Patient: known to practice within the last 3 years Requesting Physician: Gracie Chaudhry NP Primary Care Provider: Tulio Madrid MD Consult Narrative Reason for consult: f/u Narrative: Warner Caraballo a pleasant 67 year old male presents for evaluation of chronic low back pain. Today rating pain 2/10 in low back. Patient recently underwent bilateral L3,4,5 (L4-5 L5-S1) RFA with >50% ongoing relief of pain in bilateral low back. At worst pain is 5/10 at this time, improved from prior 8/10. Patient continues to find benefit from current medication regimen, with chronic widespread pain he continues to benefit from gabapentin, diclofenac, tramadol. Patient reports increased low back stiffness with activity 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, unspecified foot (ICD-10) Surgical History History of tonsillectomy and adenoidectomy ?Z90.89 - Acquired absence of other organs (ICD-10) S/P right knee arthroscopy ?Z98.890 - Other specified postprocedural states (ICD-10) S/P left knee arthroscopy ?Z98.890 - Other specified postprocedural states (ICD-10) Family History Other Family history of stroke Social History Within the past year, how often did you have a drink containing alcohol: monthly or less Smoking status: Never smoker Non-prescribed substance use: denies use Previous occupational history: RETIRED Highest level of school completed/degree received: high school graduate Meds Home Medications and Allergies Home Medications ?Medication ?Instructions ?Recorded ?Confirmed ?Type acetaminophen 500 mg tablet 1,000 mg PO Q6H PRN pain 01/06/23 06/30/23 History (Acetaminophen Extra Strength) ascorbic acid (vitamin C) 500 mg 500 mg PO BID 01/06/23 06/30/23 History tablet (C-500) atorvastatin 20 mg tablet 20 mg PO DAILY 01/06/23 06/30/23 History cholecalciferol (vitamin D3) 25 1,000 unit PO BID 01/06/23 06/30/23 History mcg (1,000 unit) tablet (Vitamin D3) colchicine 0.6 mg tablet 0.6 mg PO TID 01/06/23 06/30/23 History diclofenac sodium 50 mg 50 mg PO Q12H 01/06/23 06/30/23 History tablet,delayed release febuxostat 40 mg tablet 40 mg PO DAILY 01/06/23 06/30/23 History gabapentin 300 mg capsule 300 mg PO TID 01/06/23 06/30/23 History lisinopril 5 mg tablet 5 mg PO DAILY 01/06/23 06/30/23 History metformin 500 mg tablet,extended 500 mg PO DAILY 01/06/23 06/30/23 History release 24 hr probenecid 500 mg tablet 500 mg PO BID 01/06/23 06/30/23 History semaglutide 1 mg/dose (4 mg/3 mL) 0.5 mg subcut .weekly 01/06/23 06/30/23 History subcutaneous pen injector (Ozempic) tizanidine 4 mg tablet 8 mg PO .hs 01/06/23 06/30/23 History tramadol 50 mg tablet 50 mg PO TID PRN pain #90 tabs 12/16/23 Rx tramadol 50 mg tablet 50 mg PO TID PRN pain #90 tabs 02/12/24 Rx diclofenac sodium 50 mg 50 mg PO BID #60 tabs 03/29/24 Rx tablet,delayed release tramadol 50 mg tablet 50 mg PO TID PRN pain #90 tabs 03/29/24 Rx tramadol 50 mg tablet 50 mg PO TID PRN pain #90 tabs 03/30/24 Rx tramadol 50 mg tablet 50 mg PO TID PRN pain #90 tabs 03/30/24 Rx tramadol 50 mg tablet 50 mg PO TID PRN pain #90 tabs 03/31/24 Rx Allergies Allergy/AdvReac Type Severity Reaction Status Date / Time oxycodone AdvReac Verified 06/30/23 09:31 Exam Constitutional Documenting provider has reviewed patient's vital signs: yes Common normals: no apparent distress, oriented x3, healthy appearing, alert and well nourished General appearance: cooperative HENMT Common normals: normocephalic, hearing grossly normal bilaterally and moist oral mucous membranes Head and scalp: normocephalic Eye Common normals: PERRL Pupil: PERRL Neck & C-Spine Common normals: full ROM General: normal visual inspection Chest Common normals: inspection of chest normal Respiratory Common normals: normal respiratory effort, no retractions and no use of accessory muscles Back & Pelvis Lumbar spine/lower back: pain with ROM, paraspinal muscle tenderness and straight leg raise negative bilaterally Other: bilateral positive facet loading negative pain at L2-3 L3-4 no radiculopathy Extremity Common normals: normal to inspection and full ROM Right lower extremity: knee joint Left lower extremity: knee joint Other: bilateral knees enlarged diameter, mild crepitus, increased pain with medial and lateral stress testing, no instability Neuro Common normals: oriented x3, CN's II-XII intact bilaterally, moves all extremities, no focal motor deficits, no sensory deficits noted and deep tendon reflexes 2+ bilaterally Sensorium/orientation: alert Motor exam: strength 5/5 throughout and no movement abnormalities noted Psych Common normals: mental status grossly normal, thought process normal, cooperative, affect normal, speech normal and activity/motor behavior normal Speech: normal speech Thought process: normal thought process Results Additional Findings Additional findings: If on a controlled substance or opioids, I have checked an OARRS report on this patient and there are no aberrancies noted in the prescribing history.??If on a controlled substance or opioid a drug screen was completed and reviewed within the last year, and if there has not been a drug screen completed we ordered one today to monitor higher risk, state monitored pain medication use. As part of providing excellent, safe, comprehensive care, the following was completed at our patient's visit: 1. A medication reconciliation and review to ensure accurate knowledge of cur rent/active medications, including asking our patients to inform us about any upgd-hdv-honhmbh medications or herbal remedies/nutritional supplements/alternative remedies. 2. A review to specifically ensure our patients have had annual screening for screening for depression, screening for tobacco use, and screening for unhealthy alcohol use. For concerning screenings had a discussion with the patient, provided patient education, and recommended follow-up with primary care provider when appropriate. If patient noted with a risk of falling, they received education on strength, gait, and balance training to prevent future risk of falling. Assessment and Plan Assessment and Plan (1) Lumbar spondylosis: (2) Bilateral primary osteoarthritis of knee: (3) Chronic, continuous use of opioids: Assessment and Plan: I feel these medications are improving the patient's quality of life and allow them to tolerate activities of daily living as well as participate in recreational activity.? The patient does not report intolerable side effects. The patient is NOT opioid naive and non-pharmacologic and non-opioid treatment has failed to significantly relieve the patient's pain and improve functionality. The patient has a diagnosis that is related to a somatic or visceral pain etiology. ? ?? I reviewed with the patient the potential risks and side effects with the use of? opioid medications including but not limited to respiratory depression,? sedation, and even . Within the last 12 months I have verified the patient has access to naloxone should? these effects occur. The patient was advised to let? their family know they had Naloxone in case they would need to administer? the medication. I advised the patient to avoid the use of any other? sedation substances including alcohol, THC, and benzodiazepines while? taking opioid medications due to the risk of compounding side effects and? detrimental outcomes. within the last 12 months I have reviewed the [employer], pain treatment agreement and urine drug screen.? ?? A drug screen was completed within the last year, and no aberrancies were noted regarding their use of controlled substances. The patient understands they are subject to the terms and conditions of the pain contract that they have signed. ? ?? I have checked an OARRS report on this patient today and there are no aberrancies noted in the prescribing history.? (4) Back pain: Plan decrease tramadol 50mg BID PRN moderate to severe pain pt has failed steroid based injections for bilateral knee OA/pain, not interested in gel based injection at this time can call to schedule in the future UDS today continue diclofenac 50mg BID, risks vs benefits reviewed denies side effects continue gabapentin 300mg TID continue flexeril 10mg HS PRN pain/spasms f/u 3 months, sooner if needed
== END 2024-05-06 08:38 | disposition home or self-care (01) ==
LOC: PM 08:37
PROVIDERS: PCP Family Medicine; Visit Provider Nurse Practitioner
DX: M47.816 Spondylosis without myelopathy or radiculopathy, lumbar region (principal); M17.0 Bilateral primary osteoarthritis of knee; Z79.891 Long term (current) use of opiate analgesic; M54.50 Low back pain, unspecified
CPT/HCPCS: G0463

== ENCOUNTER 2024-05-17 08:29 | Outpatient (OUT) | payer BC, MEDICARE, SELFPAY ==
--- NOTE | 2024-05-17 08:46 | XR_ITS ---
[address] [address] Patient Name: CARLOS LOCKE MRN: [id number] date: 1955 Sex: M Assigned Patient Location: [facility] Current Patient Location: Accession/Order Number: [id number] Exam Date: 05/17/2024 08:50 Report Date: 05/18/2024 06:54 At the request of: ABIODUN HERNANDEZ Procedure: XR abdomen 1V EXAMINATION: XR abdomen 1V HISTORY: Kidney Calculi COMPARISON: 05/27/2023 FINDINGS: KIDNEY/URETER - RIGHT: stable nephrolithiasis measuring up to 10 mm KIDNEY/URETER - LEFT: Stable nephrolithiasis measuring up to 7 mm PELVIS: No visible ureteral calcifications. Any visible calcifications favor phleboliths. BOWEL: No abnormal dilation or deviation. BONES: No acute abnormality. Moderate degenerative change OTHER: Negative. No abnormal gaseous collections. XR/XR abdomen 1V IMPRESSION: Stable bilateral nephrolithiasis Electronically authenticated by: RACHEAL GRAVES Date: 05/18/2024 06:54
== END 2024-05-17 08:30 | disposition home or self-care (01) ==
LOC: RAD 08:33
PROVIDERS: PCP Family Medicine; Visit Provider Physician Assistant
DX: N20.0 Calculus of kidney (principal)
CPT/HCPCS: 74018

== ENCOUNTER 2024-06-21 13:09 | Outpatient (OUT) | payer BC, MEDICARE, SELFPAY ==
--- NOTE | 2024-06-21 | XR_ITS ---
The [address] [address] Patient Name: CARLOS LOCKE MRN: [id number] date: 1955 Sex: M Assigned Patient Location: Current Patient Location: Accession/Order Number: [id number] Exam Date: 06/21/2024 13:16 Report Date: 06/23/2024 06:16 At the request of: ERIN CRUZ Procedure: XR knee MARIE 4V EXAMINATION: XR knee MARIE 4V HISTORY: BILATERAL KNEE PAIN COMPARISON: XR knee bilateral 03/24/2023 FINDINGS: RIGHT FINDINGS: BONES: Marked narrowing of the medial joint space with qwjm-zg-uilr articulation. 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 SOFT TISSUES: No visible soft tissue swelling. OTHER: Small joint effusion. LEFT FINDINGS: BONES: Marked narrowing of the medial joint space with bfbu-es-pwkf articulation. Periarticular degenerative osteophytes involving all 3 compartments; large involving the medial and lateral compartments. SOFT TISSUES: No visible soft tissue swelling. OTHER: Small joint effusion. XR/XR knee MARIE 4V IMPRESSION: RIGHT CONCLUSION: Marked degenerative joint disease; stable to minimally progressed. LEFT CONCLUSION: Marked degenerative joint disease; stable to minimally progressed. Electronically authenticated by: ELIN MCCARTNEY Date: 06/23/2024 06:16
== END 2024-06-21 13:10 | disposition home or self-care (01) ==
LOC: EC 13:10
PROVIDERS: PCP Family Medicine; Visit Provider Student in an Organized Health Care Education/Training Program
DX: M25.561 Pain in right knee (principal); M25.562 Pain in left knee; M17.0 Bilateral primary osteoarthritis of knee
CPT/HCPCS: 73564

== ENCOUNTER 2024-06-28 07:29 | Outpatient (OUT) | payer BC, MEDICARE, SELFPAY ==
--- NOTE | 2024-06-28 07:31 | CA_ITS ---
Patient Name: CARLOS LOCKE MR#: [id number] : 1955 Exam Date: 06/28/2024 Ordering Doctor: DR Ken Mercer M.D. ECHOCARDIOGRAM REPORT PROCEDURE: CA ECHO DOPPLER COMPLETE INDICATIONS: Hypertension COMPARISON: None. DESCRIPTION: COMPLETE ECHOCARDIOGRAM Real-time transthoracic echocardiography with 2D, M-mode, spectral and color flow Doppler performed. QUALITY: Technical quality was good. BSA 2.52 m2 LEFT VENTRICLE: Normal chamber size. Normal left ventricular wall thickness. Global left ventricular systolic function is normal. LV EF: Estimated left ventricular ejection fraction is 55%. DIASTOLIC: Normal diastolic function. ATRIAL SEPTUM: LEFT ATRIUM: Normal chamber size. RIGHT ATRIUM: Normal chamber size. RIGHT VENTRICLE: Normal chamber size. Normal right ventricular systolic function. TRICUSPID VALVE: Normal mobility and thickness. No stenosis with trivial regurgitation. No evidence of pulmonary hypertension. RVSP 25 mmHg MITRAL VALVE: Normal mobility and thickness. No evidence of mitral valve stenosis. There is no mitral annular calcification. Trivial mitral regurgitation. AORTIC VALVE: Normal trileaflet appearance. Mildly calcified aortic valve. Normal leaflet mobility. No evidence of aortic valve stenosis. No aortic regurgitation. AORTIC ROOT: Normal diameter and appearance. Normal size ascending aorta measuring 3.6 cm. PULMONIC VALVE: Normal thickness and mobility. No stenosis. Trivial regurgitation. PERICARDIUM: No evidence of pericardial effusion. IVC: Collapses with inspirations. Normal size. PLEURA: CONCLUSION: 1. Normal left ventricular size and systolic function. LVEF is 55%. 2. Normal right ventricular size and systolic function. 3. No significant valvular dysfunction. 4. Normal right-sided pressures. Adult Echocardiography Procedure Report Left Ventricle LVEDD (3.7 - 5.6 cm): 5.14 cm LVESD (2.2 - 4.0 cm): 3.54 cm LVIVS thickness (0.6 - 1.2 cm): 0.92 cm LVPW thickness (0.5 - 1.0 cm): 1.07 cm e': 0.12 m/s E - e': 4.52 LVOT Max Gradient: 3.24 mm[Hg] LVOT Area (cm2): 0.90 m/s Peak Velocity (LVOT): 0.90 m/s Mean Velocity (LVOT): 0.65 m/s LVOT Diameter 2.24 cm Left Ventricular Ejection Fraction: 55 % Left Atrium LA Volume Index (2D A2C): 31.47 ml/m2 Left Atrium Systolic Dimension: 3.20 cm Mitral Valve MV E to A Ratio: 0.95, 0.89 Mitral Valve A-Wave Peak Velocity: 0.57 m/s Mitral Valve E-Wave Peak Velocity: 0.52 m/s Right Ventricle RV Internal Diastolic Dimension: 3.92 cm Aorta AO Root Diam: 3.77 cm Ascending Ao Diam: 3.62 cm Aortic Valve AoV Area (Peak Jose): 2.84 cm2, 2.84 cm2 AoV Area (VTI): 2.98 cm2, 2.98 cm2 Peak Velocity(Antegrade Flow): 1.25 m/s Peak Gradient(Antegrade Flow): 6.20 mm[Hg] Mean Velocity(Antegrade Flow): 0.87 m/s Mean Gradient(Antegrade Flow): 3.45 mm[Hg] Velocity Time Integral: 23.09 cm Tricuspid Valve Peak Velocity (Regurgitant Flow): 2.26 m/s, 2.35 m/s, 2.25 m/s Pulmonic Valve Mean Gradient: 2.67 mm[Hg], 2.85 mm[Hg] Mean Velocity: 0.79 m/s, 0.79 m/s Peak Velocity: 1.09 m/s Peak Gradient: 3.96 mm[Hg], 5.58 mm[Hg] Right Atrium Right Atrium Systolic Pressure: 56.64 ml, 56.64 ml Dictated by: Scout Mcmanus M.D. on 06/28/2024 at 17:42 Approved by: Scout Mcmanus M.D. on 06/28/2024 at 17:49
--- OUTSIDE RECORDS SUMMARY | 2024-06-28 07:32 | XMS_ITS | CCD ---
Author Organization [facility] Care Team Providers Care Food Service Helper Name Role Phone Frances Racheal Unavailable Ant Alejandra Unavailable BENTLEY MACK Attending Unavailable ELY, DR RACHEAL Ayala Admitting Unavailable ELY, DR RACHEAL Ayala Consulting Unavailable ELY, DR RACHEAL Ayala Attending Unavailable BERRIOS ., DR FELISA Juarez Primary Care Unavailable ZIEBRONAK, DR ELIN Oliva Consulting Unavailable BERRISO ., DR FELISA Juarez Primary Care Unavailable BERRIOS ., DR FELISA Juarez Attending Unavailable BERRIOS ., DR FELISA Juarez Consulting Unavailable BERRIOS ., DR FELISA Juarez Admitting Unavailable ELTAHAWLiza, DR SALCIDO Consulting Unavailable BERRIOS ., DR FELISA Juarez Primary Care Unavailable ELTAHAWY, DR SALCIDO Attending Unavailable ELTAHAWLiza, DR SALCIDO Admitting Unavailable BERRIOS ., DR [...] Unavailable ELY, DR RACHEAL Ayala Attending Unavailable BERRISO ., DR FELISA Juarez Primary Care Unavailable TONIO BELL Admitting Unavailable TONIO BELL Attending Unavailable BERRIOS ., DR FELISA Juarez Primary Care Unavailable BOONE ., DR NATHALY Main Consulting Unavailable BOONE ., DR NATHALY Main Attending Unavailable BOONE ., DR NATHAYL Main Admitting Unavailable JAZMIN MCGREGOR Consulting Unavailable MELY ., DR NATHALY Mian Consulting Unavailable BOONE ., DR NATHALY Main [...] FELISA Juarez Primary Care Unavailable WEST, DR RACHAEL Ayala Consulting Unavailable GIEDRAITIS, ANDRIUS Attending Unavailable GIEDRAITIS, ANDRIUS Admitting Unavailable GIEDRAITIS, ANDRIUS Consulting Unavailable BERRIOS ., DR FELISA Juarez Primary Care Unavailable WEST, DR RACHEAL Ayala Consulting Unavailable WEST, DR RACHEAL Ayala Attending Unavailable WEST, DR RACHEAL Ayala Admitting Unavailable ZIEBER, DR ELIN Oliva Consulting Unavailable BERRIOS ., DR FELISA Juraez Primary Care Unavailable WEST, DR RACHEAL Ayala [...] ., DR FELISA Juarez Primary Care Unavailable [facility], PETER D Admitting Unavailable HIGHLANDER, PETER D [...] Unavailable JENNIFER II, ALEJANDRA Consulting Unavailable TYLERYURI BAIG Consulting Unavailable KOTONIO POPE Consulting Unavailable BERRIOS ., DR FELISA Juarez Primary Care Unavailable PAY ., DR MARTINEZ Consulting Unavailable PAY ., DR MARTINEZ Attending Unavailable PAY ., DR MARTINEZ Admitting Unavailable BERRIOS ., DR FELSIA Juarez Primary Care Unavailable HIGHLANDER, PETER D [...] DR NATHALY Main Admitting Unavailable JOHNSON .RODRIGO Consulting Unavailable WEST, DR RACHEAL Ayala Consulting Unavailable BERRIOS ., DR FELISA Juarez Primary Care Unavailable [facility], DR STEWART Attending Unavailable [facility], DR STEWART Admitting Unavailable [facility], DR STEWART Consulting Unavailable WEST, DR RACHEAL [...] Attending Unavailable FELISA BERRIOS Primary Care Physician [phone] Kyara MCGUIRE, Donaldo Cunningham Attending Unavailable Kyara MCGUIRE, Donaldo Cunningham Attending Unavailable Kyara MCGUIRE, Donaldo Cunningham Attending Unavailable HARINDER RUGGIERO Primary Care Physician HARINDER RUGGIERO Attending Unavailable HARINDER RUGGIERO Attending Unavailable LIZ HERNANDEZ Attending Unavailable LIZ HERNANDEZ Attending Unavailable Allergies Allergy Classification Reported Allergen(s) Allergy Type Date of Onset Reaction(s) Facility (3 sources) Acetaminophen / oxyCODONE Drug Allergy Unknown [facility] Other (1 source) Acetaminophen / oxyCODONE; Translations: [OXYCODONE-ACETAM INOPHEN] Drug Allergy 3 [facility] (5 sources) oxyCODONE; Translations: [OXYCODONE] Drug Allergy 3 Hyperactive behavior (finding) [facility] (1 source) Acetaminophen / oxyCODONE Drug Allergy [facility] Rep[facility] (1 source) oxyCODONE; Translations: [OxyCODONE Hydrochloride] Drug Allergy [facility] Repository Medications Current Medications Medication Drug Class(es) Dates Sig (Normalized) Sig (Original) atorvastatin 20 mg oral tablet (6 sources) HMG-CoA Reductase Inhibitor Start: 04-25-2020 take [...] Baclofen Active colchicine 0.6 mg oral tablet (6 sources) Start: 11-15-2020 take 1 tablet by [...] e cyclobenzaprine hydrochloride 10 mg oral tablet (2 sources) Muscle Relaxant Start: 11-04-2023 cyclobenzaprin e 10 mg Tab Refills(s) 0 Start Date: 11/04/23 Status: Ordered diclofenac sodium 50 mg delayed release oral tablet (4 sources) Nonsteroidal Anti-inflammatory Drug Start: 11-04-2023 diclofenac sodium 50 mg Oral EC Tab Refills(s) 0 Start Date: 11/04/23 Status: Ordered take 1 tablet by debbie th every twelve hours Diclofenac Sodium 50 MG 1 tablet as need ed Orally Twice a day Active febuxostat 40 mg oral tablet (6 sources) Xanthine Oxidase Inhibitor Start: 04-25-2020 take 1 tablet by mouth once daily febuxostat 40 mg oral tablet 40 mg = 1 tab(s), Oral, Daily, # 30 tab(s), Refills(s) 0, Gout pain Start Date: 04/25/20 Status: Ordered Febuxostat Activ e gabapentin 300 mg oral capsule (6 sources) Anti-epileptic Agent Start: 11-15-2020 take 1 capsule by mouth once daily at bedtime gabapentin 300 mg Cap 300 mg = 1 cap(s), Oral, Once a day (at bedtime), # 30 cap(s), Refills(s) 0, Muscle pain Start Date: 11/15/20 Status: Ordered Gabapentin Activ e lisinopril 5 mg oral tablet (6 sources) Angiotensin Converting Enzyme Inhibitor Start: 04-13-2019 take 5 mg by mouth once daily lisinopril 5 mg, Oral, Daily, Refills(s) 0, High blood pressure Start Date: 04/13/19 Status: Ordered Lisinopril Activ e metFORMIN hydrochloride 500 mg oral tablet (6 sources) Biguanide Start: 04-25-2020 take 1 tablet [...] 1.5 ml semaglutide 1.34 mg/ml pen injector (3 sources) Start: 04-24-2021 inject 0.5 mg by [...] 20mg/24hrs, # 20 tab(s), Refills(s) 3, Pharmacy: [facility]/pharmacy #[id number], 188, cm, 06/03/23 10:01:00 EST, Height/Length Dosing, 138, kg, 06/03/23 10:01:00 EST, Weight Dosing Start Date: 06/03/23 Status: Ordered Testosterone Cypionate 200 mg/mL intramuscular solution (3 sources) Start: 06-03-2023 Testosterone Cypionate 200 mg/mL intramuscular solution Refills(s) 0 Start Date: 06/03/23 Status: Ordered traMADol hydrochloride 50 mg oral tablet (6 sources) Opioid Agonist Start: 06-03-2023 traMADOL 50 mg Tab Refills(s) 0 Start Date: 06/03/23 Status: Ordered traMADol HCl Act vitor traZODone hydrochloride 50 mg oral tablet (1 source) Serotonin Reuptake Inhibitor Start: 05-27-2024 take 50 mg by mouth once daily at bedtime trazodone 50 mg, Oral, Once a day (at bedtime), Refills(s) 0 Start Date: 05/27/24 Status: Ordered Vitamin D3 (3 sources) Start: 04-25-2020 Vitamin D3 50, 000 International_Unit , BID, Refills(s) 0, Prophylaxis Start Date: 04/25/20 [...] needed, # 2 tab(s), Refills(s) 0, Pharmacy: [facility]/pharmacy #[id number], 185.4, cm, 12/05/20 11:15:00 EDT, Height/Length [...] Onset: 3 Chronic Calculus of urinary tract (10 sources) Calculus of kidney; Translations: [Kidney stone] [...] 3 Chronic Genitourinary symptoms and ill-defined conditions (3 sources) Nocturia 04-25-2020 Episodic Gout and other crystal arthropathies (5 sources) Gout, unspecified; Translations: [GOUT UNSPECIFIED] Onset: 2 Chronic Hepatitis (4 sources) Steatohepatitis; Translations: [Nonalcoholic steatohepatitis (HODGES)] Onset: 1 Resolved: 1 Chronic Hyperplasia of prostate (8 sources) Benign prostatic hypertrophy with outflow obstruction; Translations: [Benign prostatic hyperplasia with lower urinary tract symptoms] Onset: 3 Chronic Neoplasms of unspecified nature or uncertain behavior (3 sources) 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 11-30-2020 Episodic Osteoarthritis (11 sources) Arthritis of right knee; Translations: [Unilateral primary osteoarthritis, right knee] Onset: 2 Resolved: 2 Chronic Other aftercare (1 source) tank terminal gauger (current) use of oral hypoglycemic drugs; Translations: [CORRECTION USE ORAL HYPOGLYCEMIC DX] Onset: 3 Episodic Other aftercare (1 source) Other tank terminal gauger (current) drug therapy; Translations: [OTH CORRECTION CURRENT DRUG THERAPY] Onset: 3 Episodic Other aftercare (3 sources) Long-term current use of anticoagulant 11-17-2020 Episodic Other and unspecified benign neoplasm (3 sources) Benign neoplasm of descending colon 02-01-2021 Episodic Other and unspecified benign neoplasm (3 sources) Benign neoplasm of sigmoid colon 02-01-2021 Episodic Other and unspecified benign neoplasm (3 sources) History of polyp of colon 01-12-2021 Episodic Other connective tissue disease (4 sources) Pain in left foot; Translations: [PAIN IN LEFT FOOT] Onset: 3 Episodic Other connective tissue disease (1 source) Myalgia, other site; Translations: [MYALGIA OTHER SITE] Onset: 3 Episodic Other connective tissue disease (4 sources) Arthrodesis status; Translations: [ARTHRODESIS STATUS] Onset: 3 Episodic Other diseases of kidney and ureters (3 sources) Hydronephrosis co-occurrent and due to calculus of kidney and ureter 04-13-2019 Episodic Other endocrine disorders (3 sources) Testicular hypofunction; Translations: [Testicular hypofunction] Onset: 3 Chronic Other endocrine disorders (3 sources) Male hypogonadism 06-03-2023 Chronic Other liver diseases (3 sources) Lesion of liver; Translations: [Liver disease, unspecified] Chronic Other liver diseases (1 source) Fatty (change of) liver, not elsewhere classified; Translations: [FATTY CHANGE LIVER NEC] Onset: 3 Chronic Other liver diseases (3 sources) Liver mass 11-17-2020 Episodic Other lower respiratory disease (1 source) Personal history of pneumonia (recurrent); Translations: [PERSONAL HX OF PNEUMONIA RECURRENT] Onset: 3 Episodic Other male genital disorders (6 sources) Male erectile dysfunction, unspecified; Translations: [Erectile [...] Chronic Other nutritional; endocrine; and metabolic disorders (3 sources) Body mass index 40+ - severely obese 04-13-2019 Chronic Other nutritional; endocrine; and metabolic disorders (3 sources) Morbid obesity 04-13-2019 Chronic Other screening for suspected conditions (not mental disorders or infectious disease) (6 sources) Encounter for screening for malignant neoplasm of prostate; Translations: [Screening for malignant neoplasm done] Onset: 3 Episodic Other skin disorders (1 source) Corns and callosities; Translations: [CORNS AND CALLOSITIES] Onset: 3 Episodic Other upper respiratory infections (1 source) Acute upper respiratory infection, unspecified; Translations: [ACUTE UP RESPIRATORY INFECTION UNS] Onset: 3 Episodic Pulmonary heart disease (6 sources) Personal history of pulmonary embolism; Translations: [H/O: pulmonary embolus] Onset: 3 Episodic Residual codes; unclassified (1 source) Obstructive sleep apnea (adult) (pediatric); Translations: [OBSTRUCTIVE SLEEP APNEA] Onset: 3 Chronic Residual codes; unclassified (1 source) Family history of cancer; Translations: [Family history of malignant neoplasm of prostate] Onset: 3 Episodic Residual codes; unclassified (3 sources) Family history of prostate cancer 06-03-2023 [...] disc disorders; other back problems (7 sources) Muscle spasm of back; Translations: [Backache] Onset: 3 Episodic Unclassified (4 sources) LOW BACK PAIN, UNSPECIFIED; Translations: [LOW BACK PAIN, UNSPECIFIED] Onset: 2 Unclassified (1 source) PERSONAL HISTORY OF COVID-19; Translations: [PERSONAL HISTORY OF COVID-19] Onset: 3 Unclassified (1 source) COUGH, UNSPECIFIED; Translations: [COUGH, UNSPECIFIED] Onset: 3 Unclassified (2 sources) Measurement finding 11-04-2023 Past or Other Problems [...] Translations: [LOW BACK PAIN, UNSPECIFIED] Onset: 3 Unclassified (3 sources) Patient encounter status 06-03-2023 Varicose veins of lower extremity (5 sources) Varicose veins of bilateral lower extremities with pain; Translations: [VARICOSE VNS MARIE LOW EXTREM W/PAIN] Onset: 2 Episodic Results Test Name Value Interpretation Reference Range Facility Reminderson 06-15-2024 Reminders Reminders From: Cyndi Montano To: [facility] - Administrative; Sent: 06/04/2024 12:06:06 EST Show up: 06/04/2024 12:05:00 EST Subject: Ambulatory Reminder Due Date/Time: 05/28/2025 12:05:00 EST Reminder/Recall Patient needs scheduled for a 1 yr f/u, PCP to check PSA. Due back in 06/07 LVM to call and schedule Normal [facility] Urology Office/Clinic Noteon 05-27-2024 Urology Office/Clinic Note Urology Office/Clinic Note Chief Complaint 5mo f/u HPI Staff 68 year old male here for 5 month with KUB. Pt unable to provide urine sample today, states he used the restroom prior to coming to appt. Denies any problems today. Previous DX: increased PSA velocity, ED, kidney calculi, BPH w/LUTS and hypogonadism male. KUB done 05/17/24 Dysuria: denies Incomplete bladder emptying: denies Hematuria: denies Frequency: about 3x per day Urgency: denies Nocturia: 1x per night if he drinks a lot of water Stream: good stream Leaking: denies Post void dripping: denies Wearing pads/ Depends: denies Urge incontinence: denies Stress incontinence: denies Incontinence without Sensory Awareness: denies Abdominal pain: denies Flank pain: denies Sexual complaints: denies Review of Systems PHQ Score Initial Depression Screen Score: 3 SCORE Detailed Depression Screen Score: 1 Total Depression Screen Score: 4 no fever, chills, malaise, myalgia. no rash/lesions. no chest pain, palpitations, or SOB. no abdominal pain, nausea, vomiting. no unilateral calf swelling, redness, pain Physical Exam Vitals & Measurements T: 37 ???C(Oral) HR: 79(Peripheral) RR: 18 BP: 117/67 HT: 74 in HT: 188 cm WT: 135 kg WT: 297.624 lb BMI: 38.2 General: nontoxic, NAD Mouth: moist mucosa Lungs: normal respiratory effort Cardio: regular rate, good distal perfusion Abdomen: nondistended, no suprapubic distention or tenderness, no CVA tenderness Neurologic: Grossly normal Skin: No rashes or suspicious lesions CHAUNCEY: benign. no asymmetry, induration, nodules. Assessment/Plan Unable to void IO today but denies UTI sx. IPSS 1 QOL 0 1. Kidney calculi (N20.0: Calculus of kidney) CT AP wo/w con 11/01/20 [facility] - R renal stones, measuring up to 7mm KUB 05/27/22 [facility] - two R renal stones, measuring about 10mm. KUB 05/27/23 [facility] - R renal stones measuring up to 8mm. TODAY: KUB 05/17/24 - R renal stones measuring up to 10mm, L renal stones measuring up to 8mm. Says he completed metabolic eval years ago w PRW and it didn't show any raya abnormalities contributing to his stone formation. Not interested in repeating at this time. Large bilat stones. Unclear if L-sided stones are truly new or just obscured by overlying bowel content on previous KUBs. No flank pain. No hematuria. No UTIs. Wishes to continue monitoring. Does not wish to pursue lithotripsy. -KUB 1 yr. Stone prevention diet. Ordered: Body Mass Index (BMI) documented 3008F Complex E&M Add on G2211 Current tobacco non-user 1036F Depression Screening Negative 3352F E&M of Est. Patient Moderate 30-39 Min 66831 Influenza immunization status assessed 1030F Medication list documented in medical record 1159F Most recent diastolic blood pressure <80 mm Hg 3078F Patient screen for fall risk: no falls in last year or 1 fall with no injury in last year 1101F Review of all meds by a prescribing practitioner or clinical pharmacist documented in EHR 1160F Systolic BP <130 mm Hg (Most Recent) 3074F XR Abdomen 1 View 2. Increased prostate specific antigen (PSA) velocity (R97.20: Elevated prostate specific antigen [PSA]) PSA 04/17/20 - 0.73 10/09/20 - 0.51 05/03/22 - 0.57 05/27/23 - 1.46 07/25/23 - 1.07 (ordered by PCP) 10/27/23 - 1.40 PSA nearly tripled btwn Fall 2021 and Fall 2022 so I had him return for 6 mo repeat PSA which is stable. PCP also checked another PSA in the meantime which was down almost half a point, so looks like his PSA may wander a bit. Pt is on T replacement & has +fam hx in father, so need to watch his PSA trends closely. -PSA due in October 2024. Pt says PCP already ordered it. Will place recall to ensure we review results. Ordered: Complex E&M Add on G2211 E&M of Est. Patient Moderate 30-39 Min 96747 3. Hypogonadism male (E29.1: Testicular hypofunction) Managed by PCP. On T injections. Ordered: Complex E&M Add on G2211 E&M of Est. Patient Moderate 30-39 Min 85469 4. ED (erectile dysfunction) (N52.9: Male erectile dysfunction, unspecified) Failed Tadalafil. A lot of neuropathy. Not interested in additional tx. Ordered: Complex E&M Add on G2211 E&M of Est. Patient Moderate 30-39 Min 29978 Follow-up With When Contact Information LIZ HERNANDEZ PA-C, URL Within 1 year Additional Instructions: Patient Education Kidney Stones, [id number] Problem List/Past Medical History Ongoing Abnormal abdominal CT scan BMI 40.0-44.9, adult Chronic anticoagulation Dorsalgia ED (erectile dysfunction) Family history of prostate cancer in father History of pulmonary embolism Hydronephrosis with renal and ureteral calculus obstruction Hypogonadism male Increased prostate specific antigen (PSA) velocity Kidney calculi Lesion of liver greater than 1 cm in diameter Liver masses Morbid obesity Personal history of colonic polyps Tubular adenoma of colon Historical BPH with urinary obstructio (more content not included)... Normal [facility] Comment on above: Result Comment: Elec tronically Signed By: LIZ HERNANDEZ PA-C.clau\Date and Time Signed: 05/27/24 09:57 EST Lab Reportson 11-05-2023 Lab Reports [id number] 0TIFF Normal [facility] Screenson 11-05-2023 Screens [id number]. 00TIFF Normal [facility] Screens [id number]. 00TIFF Normal [facility] Patient Educationon 11-04-19 Patient Education Urology Erectile [...] these instructions at home: Medicines ? Take [id number] and prescription medicines only as told by [...] include cig (more content not included)... Normal [facility] Urology Office/Clinic Noteon 11-04-2023 Urology Office/Clinic Note [...] E&M of Est. Patient Moderate 30-39 Min 82435 3. Kidney calculi (N20.0: Calculus of kidney) [...] E&M of Est. Patient Moderate 30-39 Min 71010 XR Abdomen 1 View 4. BPH with [...] E&M of Est. Patient Moderate 30-39 Min 88418 Influenza immunization status assessed 1030F Medication list [...] E&M of Est. Patient Moderate 30-39 Min 16256 Follow-up With When Contact Information LIZ HERNANDEZ PA-C, URL [address] [facility] [place] [address] [phone] Additional Instructions: 6 mos w/ KUB Patient Education Erectile Dysfunction Documentation recorded by the sariah Burr accurately reflects the services(s) I performed and decisions made by me. Authenticated by Liz Hernandez PA-C on 11/04/2023 10:26:08. Maru Hawthorne, personally scribed for Liz Hernandez PA-C on 11/04/2023 09:31:27. . Problem List/Past Medical History Ongoing Abnormal abdominal CT scan BMI 40.0-44.9, adult BPH with urinary obstruction Chronic anticoagulation Dorsalgia ED (erectile dysfunction) Enlarged prostate with urinary obstruction Family history of prostate cancer in father History of pulmonary embolism [place] (more content not included)... Normal [facility] Comment on above: Result Comment: Elec tronically Signed By: LIZ HERNANDEZ PA-C\.br\Date and Time Signed: 11/04/23 10:26 EDT\.br\Electronically Co-Signed By: Maru Burr\Date and Time Co-Signed: 11/04/23 09:31 EDT Lab Reportson 10-27-2023 Lab Reports [id number] 0TIFF Normal [facility] XR [...] RACHEAL GRAVES Date: 2022-12-05 09:46 Normal [facility] CBC AUTO DIFFon 10-21-2022 BASO # 0.1 103/ul Normal 0.0-0.1 [facility] Comment on above: Performed By: #### P OCGLUC #### [facility] [address] [address] [address] Juliet García Basophils/100 WBC (Bld) 0.7 % Normal 0.2-2.0 [facility] Comment on above: Performed By: #### P OCGLUC #### [facility] [address] [place] [address] Dr. Juliet García EO # 0.4 103/ul Normal 0.0-0.7 [facility] Comment on above: Performed By: #### P OCGLUC #### [facility] [address] [address] [address] Juliet García Eosinophils/100 WBC (Bld) 5.3 % Normal 0.9-7.0 [facility] Comment on above: Performed By: #### P OCGLUC #### [facility] [address] [place] [address] Dr. Juliet García Erythrocyte distribution width (RBC) [Ratio] 14.0 % Normal 11.0-15.0 [facility] Comment on above: Performed By: #### P OCGLUC #### [facility] [address] [address] [address] Juliet García Hematocrit (Bld) [Volume fraction] 43.6 % Normal 42.0-54.0 [facility] Comment on above: Performed By: #### P OCGLUC #### [facility] [address] [place] [address] Dr. Juliet García Hemoglobin (Bld) [Mass/Vol] 14.9 g/dL Normal 14.0-18.0 [facility] Comment on above: Performed By: #### P OCGLUC #### [facility] [address] [address] [address] Juliet García IG # 0.03 10e3/ul Normal 0.00-0.03 [facility] Comment on above: Performed By: #### P OCGLUC #### [facility] [address] [place] [address] Dr. Juliet García IG % 0.4 % Normal 0.0-0.5 [facility] Comment on above: Performed By: #### P OCGLUC #### [facility] [address] [place] [address] Dr. Juliet García LYMPH # 2.0 103/ul Normal 1.2-3.8 [facility] Comment on above: Performed By: #### P OCGLUC #### [facility] [address] [place] [address] Dr. Juliet García Lymphocytes/100 WBC (Bld) 29.3 % Normal 20.5-60.0 [facility] Comment on above: Performed By: #### P OCGLUC #### [facility] [address] [place] [address] Dr. Juliet García MANUAL DIFF REQ NO Normal [facility] Comment on above: Performed By: #### P OCGLUC #### [facility] [address] [place] [address] Dr. Juliet García MCH (RBC) [Entitic mass] 33.4 pg Normal 25.9-34.0 [facility] Comment on above: Performed By: #### P OCGLUC #### [facility] [address] [address] [address] Juliet García MCHC (RBC) [Mass/Vol] 34.2 g/dL Normal 29.9-35.2 [facility] Comment on above: Performed By: #### P OCGLUC #### [facility] [address] [address] [address] Juliet García MCV (RBC) [Entitic vol] 97.8 fL Critically high 80.0-94.0 [facility] Comment on above: Performed By: #### P OCGLUC #### [facility] [address] [address] [address] Juliet García MONO # 0.7 103/ul Normal 0.3-0.8 [facility] Comment on above: Performed By: #### P OCGLUC #### [facility] [address] [place] [address] Dr. Juliet García Monocytes/100 WBC (Bld) 9.9 % Normal 1.7-12.0 [facility] Comment on above: Performed By: #### P OCGLUC #### [facility] [address] [place] [address] Dr. Juliet García NEUT # 3.7 103/ul Normal 1.4-6.5 [facility] Comment on above: Performed By: #### P OCGLUC #### [facility] [address] [place] [address] Dr. Juliet García Neutrophils/100 WBC (Bld) 54.4 % Normal 43.0-75.0 [facility] Comment on above: Performed By: #### P OCGLUC #### [facility] [address] [place] [address] Dr. Juliet García Platelet mean volume (Bld) [Entitic vol] 9.0 fL Critically low 9.5-13.5 [facility] Comment on above: Performed By: #### P OCGLUC #### [facility] [facility] [address] [place] [address] Dr. Juliet García PLT 211 103/ul Normal 150-450 [facility] Comment on above: Performed By: #### P OCGLUC #### [facility] [address] [address] [address] Juliet García RBC 4.46 106/ul Critically low 4.70-6.10 [facility] Comment on above: Performed By: #### P OCGLUC #### [facility] [address] [address] [address] Juliet Garcaí WBC 6.8 103/ul Normal 4.0-11.0 [facility] Comment on above: Performed By: #### P OCGLUC #### [facility] [address] [address] [address] Juliet García POINT OF CARE GLUCOSEon 10-12 Glucose [Mass/Vol] 100 mg/dL Normal 74-[address] [facility] Comment on above: Performed By: #### P OCGLUC #### [facility] [address] [address] [address] Juliet aGrcía Glucose [Mass/Vol] 94 mg/dL Normal 74-[address] [facility] Comment on above: Performed By: #### A 1C #### [facility] [address] [address] [address] Juliet García PROF CHEM 8 (BAS METB)on Anion gap [Moles/Vol] 14.0 mmol/L Normal [facility] Comment on above: Performed By: #### B MP #### [facility] [address] [address] [address] Juliet García Calcium [Mass/Vol] 9.0 mg/dL Normal 8.5-10.1 [facility] Comment on above: Performed By: #### B MP #### [facility] [address] [address] [address] Juliet García Chloride [Moles/Vol] 107 mmol/L Normal 98-107 [facility] Comment on above: Performed By: #### B MP #### [facility] [address] [address] [address] Juliet García CO2 [Moles/Vol] 28.7 mmol/L Normal 21.0-32.0 [facility] Comment on above: Performed By: #### B MP #### [facility] [address] [address] [address] Juliet García Creatinine [Mass/Vol] 1.41 mg/dL Critically high 0.70-1.30 [facility] Comment on above: Performed By: #### B MP #### [facility] [address] [address] [address] Juliet García EGFR-AF GERMAN >60 Normal >=60 [facility] Comment on above: Performed By: #### B MP #### [facility] [address] [address] [address] Juliet García EGFR-NON AF GERMAN 50 mL/min/1.73m2 Critically low >=60 [facility] Comment on above: Performed By: #### B MP #### [facility] [address] [address] [address] Juliet García Glucose [Mass/Vol] 95 mg/dL Normal 74-[address] [facility] Comment on above: Performed By: #### B MP #### [facility] [address] [address] [address] Juliet García Potassium [Moles/Vol] 4.7 mmol/L Normal 3.5-5.1 [facility] Comment on above: Performed By: #### B MP #### [facility] [address] [address] [address] Juliet García Sodium [Moles/Vol] 145 mmol/L Normal 136-145 [facility] Comment on above: Performed By: #### B MP #### [facility] [address] [address] [address] Juliet García Urea nitrogen [Mass/Vol] 25.0 mg/dL Critically high 7.0-18.0 [facility] Comment on above: Performed By: #### B MP #### [facility] [address] [address] [address] Juliet García Urea nitrogen/Creatinine [Mass ratio] 17.7 mg/mg Normal [facility] Comment on above: Performed By: #### B MP #### [facility] [address] [address] [address] Juliet García Office Visiton 07-31-2022 Follow-up visit [id number] Carlos Locke 1955 M Date Provider Department Center 07/31/2022 BENTLEY MENDOZA [facility] Family History Problem Relation Age of Onset Stroke Father Family Status - Relation Status Age at Father Level of Service:47724 DC OFFICE/OUTPATIENT ESTABLISHED MOD MDM 30-39 MIN Reason for Visit and Comments: Hyperlipidemia [182] Hypertension [692347] history of PE [Other] Normal [facility] 07-24-2022 CULTURE WOUND Culture Observations : No growth of anaerobes at 72 hours. Isolate 1 Stenotrophomonas maltophilia Moderate growth of ORGANISM 1 Stenotrophomonas maltophilia ANTIBIOTIC M.I.C RX STATUS Levofloxacin 1 S F Trimethoprim/Sulfameth oxazole <=20 S F Normal [facility] Comment on above: Performed By: #### W OUNDCX ####[facility] [address] [address]Dr. Juliet García GLYCOHEMOGLOBIN A1Con 2022 ADA RECOMMENDATION SEE BELOW Normal [facility] Comment on above: Result Comment: ADA RECOMMENDED LIMIT 4.0 - 6.0 ADA THERAPEUTIC TARGET < 7.0 ACTION SUGGESTED > 7.0 Performed By: #### A 1C #### [facility] [address] [address] [address] Juliet García Glucose [Mass/Vol] 111 mg/dL Normal [facility] Comment on above: Performed By: #### A 1C #### [facility] [address] [address] [address] Juliet García HbA1c (Bld) [Mass fraction] 5.5 % Normal 4.5-6.2 [facility] Comment on above: Performed By: #### A 1C #### [facility] [address] [address] [address] Juliet García ECHOCARDIO M/2D COMPLETEon 1 08-29-2021 ECHOCARDIO M/2D COMPLETE Patient: CARLOS LOCKE. Exam Date: 06/28/2022 : 1955 Gender:M Ordering : DR LOLY BARNARD M.D. Admission #: [id number] Family : Order #: [id number] CLICK HERE TO VIEW EXAM ECHOCARDIOGRAM REPORT [...] M.D. on 07/04/2022 at 13:38 Normal [facility] URIC ACID SERUMon 06-10-2022 Urate [Mass/Vol] 6.9 mg/dL Normal 3.5-7.2 [facility] Comment on above: Performed By: #### A 1C #### [facility] [address] [place] [address] Dr. Juliet García XR KUB 1 VIEWon [...] RACHEAL GRAVES Date: 2022-05-28 07:31 Normal [facility] CBC AUTO DIFFon 05-03-2022 BASO # 0.1 103/ul Normal 0.0-0.1 [facility] Comment on above: Performed By: #### C BC #### [facility] [address] [address] [address] Juliet García Basophils/100 WBC (Bld) 0.9 % Normal 0.2-2.0 [facility] Comment on above: Performed By: #### C BC #### [facility] [address] [place] [address] Dr. Juliet García EO # 0.4 103/ul Normal 0.0-0.7 [facility] Comment on above: Performed By: #### C BC #### [facility] [address] [place] [address] Dr. Juliet García Eosinophils/100 WBC (Bld) 5.2 % Normal 0.9-7.0 [facility] Comment on above: Performed By: #### C BC #### [facility] [address] [place] [address] Dr. Juliet García Erythrocyte distribution width (RBC) [Ratio] 13.6 % Normal 11.0-15.0 [facility] Comment on above: Performed By: #### C BC #### [facility] [address] [place] [address] Dr. Juliet García Hematocrit (Bld) [Volume fraction] 40.5 % Critically low 42.0-54.0 [facility] Comment on above: Performed By: #### C BC #### [facility] [address] [place] [address] Dr. Juliet García Hemoglobin (Bld) [Mass/Vol] 13.7 g/dL Critically low 14.0-18.0 [facility] Comment on above: Performed By: #### C BC #### [facility] [address] [place] [address] Dr. Juliet García IG # 0.02 10e3/ul Normal 0.00-0.03 [facility] Comment on above: Performed By: #### C BC #### [facility] [address] [place] [address] Dr. Juliet García IG % 0.3 % Normal 0.0-0.5 [facility] Comment on above: Performed By: #### C BC #### [facility] [address] [address] [address] Juliet García LYMPH # 1.9 103/ul Normal 1.2-3.8 [facility] Comment on above: Performed By: #### C BC #### [facility] [address] [place] [address] Dr. Juliet García Lymphocytes/100 WBC (Bld) 27.7 % Normal 20.5-60.0 [facility] Comment on above: Performed By: #### C BC #### [facility] [address] [place] [address] Dr. Juliet García MANUAL DIFF REQ NO Normal [facility] Comment on above: Performed By: #### C BC #### [facility] [address] [place] [address] Dr. Juliet García MCH (RBC) [Entitic mass] 33.3 pg Normal 25.9-34.0 [facility] Comment on above: Performed By: #### C BC #### [facility] [address] [place] [address] Dr. Juliet García MCHC (RBC) [Mass/Vol] 33.8 g/dL Normal 29.9-35.2 [facility] Comment on above: Performed By: #### C BC #### [facility] [address] [place] [address] Dr. Juliet García MCV (RBC) [Entitic vol] 98.3 fL Critically high 80.0-94.0 [facility] Comment on above: Performed By: #### C BC #### [facility] [address] [place] [address] Dr. Juliet García MONO # 0.7 103/ul Normal 0.3-0.8 [facility] Comment on above: Performed By: #### C BC #### [facility] [address] [place] [address] Dr. Juliet García Monocytes/100 WBC (Bld) 9.9 % Normal 1.7-12.0 [facility] Comment on above: Performed By: #### C BC #### [facility] [address] [place] [address] Dr. Juliet García NEUT # 3.8 103/ul Normal 1.4-6.5 [facility] Comment on above: Performed By: #### C BC #### [facility] [address] [place] [address] Dr. Juliet García Neutrophils/100 WBC (Bld) 56.0 % Normal 43.0-75.0 [facility] Comment on above: Performed By: #### C BC #### [facility] [address] [place] [address] Dr. Juliet García Platelet mean volume (Bld) [Entitic vol] 9.0 fL Critically low 9.5-13.5 [facility] Comment on above: Performed By: #### C BC #### [facility] [address] [place] [address] Dr. Juliet García PLT 201 103/ul Normal 150-450 [facility] Comment on above: Performed By: #### C BC #### [facility] [address] [place] [address] Dr. Juliet García RBC 4.12 106/ul Critically low 4.70-6.10 [facility] Comment on above: Performed By: #### C BC #### [facility] [address] [place] [address] Dr. Juliet García WBC 6.7 103/ul Normal 4.0-11.0 [facility] Comment on above: Performed By: #### C BC #### [facility] [address] [place] [address] Dr. Juliet García GLYCOHEMOGLOBIN A1Con 2021 ADA RECOMMENDATION SEE BELOW Normal [facility] Comment on above: Result Comment: ADA RECOMMENDED LIMIT 4.0 - 6.0 ADA THERAPEUTIC TARGET < 7.0 ACTION SUGGESTED > 7.0 Performed By: #### A 1C #### [facility] [address] [place] [address] Dr. Juliet García Glucose [Mass/Vol] 108 mg/dL Normal [facility] Comment on above: Performed By: #### A 1C #### [facility] [address] [place], [place] [id number] Dr. Juliet García HbA1c (Bld) [Mass fraction] 5.4 % Normal 4.5-6.2 [facility] Comment on above: Performed By: #### A 1C #### [facility] [address] [place] [address] Dr. Juliet García LIPID PROFILEon 05-03-2022 CHOL-HDL RATIO NORM SEE BELOW Normal [facility] Comment on above: Result Comment: 3.3 - 4.4 LOW RISK 4.4 - 7.1 AVERAGE RISK 7.1 - 11.0 MODERATE RISK >11.0 HIGH RISK Performed By: #### L IPID, CMP #### [facility] [address] [place] [address] Dr. Juliet García Cholesterol [Mass/Vol] 154 mg/dL Normal <=200 [facility] Comment on above: Performed By: #### L IPID, CMP #### [facility] [address] [place] [address] Dr. Juliet García Cholesterol in HDL [Mass/Vol] 29 mg/dL Critically low 40-60 [facility] Comment on above: Performed By: #### L IPID, CMP #### [facility] [address] [place] [address] Dr. Juliet García Cholesterol in LDL [Mass/Vol] 64.2 mg/dL Normal [facility] Comment on above: Performed By: #### L IPID, CMP #### [facility] [address] [place] [address] Dr. Juliet García Cholesterol.total/Ch olesterol in HDL [Mass ratio] 5.3 {ratio} Normal [facility] Comment on above: Performed By: #### L IPID, CMP #### [facility] [address] [place] [address] Dr. Juliet García HDL NORMAL > or = 60 mg/dl - LO W CARDIOVASCULAR RISK <40 mg/dl - HIGH CARDIOVASCULAR RISK Normal [facility] Comment on above: Performed By: #### L IPID, CMP #### [facility] [address] [place] [address] Dr. Juliet García LDL CALC NORMAL SEE BELOW Normal [facility] Comment on above: Result Comment: <100 mg/dl OPTIMAL 100 - 129 mg/dl NEAR OR ABOVE OPTIMAL 130 - 159 mg/dl BORDERLINE HIGH 160 - 189 mg/dl HIGH >190 mg/dl VERY HIGH Performed By: #### L IPID, CMP #### [facility] [address] [address] [address] Juliet García Triglyceride [Mass/Vol] 304 mg/dL Critically high <=150 [facility] Comment on above: Performed By: #### L IPID, CMP #### [facility] [address] [address] [address] Juliet García VLDL CALC 60.8 mg/dL Normal [facility] Comment on above: Performed By: #### L IPID, CMP #### [facility] [address] [place] [address] Dr. Juliet García PROF 14(COMP METB)on 022 Albumin [Mass/Vol] 3.7 g/dL Normal 3.4-5.[address] [facility] Comment on above: Performed By: #### L IPID, CMP #### [facility] [address] [address] [address] Juliet García Albumin/Globulin [Mass ratio] 1.1 {ratio} Normal [facility] Comment on above: Performed By: #### L IPID, CMP #### [facility] [address] [address] [address] Juliet García ALP [Catalytic activity/Vol] 87 U/L Normal 46-116 [facility] Comment on above: Performed By: #### L IPID, CMP #### [facility] [address] [address] [address] Juliet García ALT [Catalytic activity/Vol] 52 U/L Normal 16-63 [facility] Comment on above: Performed By: #### L IPID, CMP #### [facility] [address] [address] [address] Juliet García Anion gap [Moles/Vol] 11.5 mmol/L Normal [facility] Comment on above: Performed By: #### L IPID, CMP #### [facility] [address] [address] [address] Juliet García AST [Catalytic activity/Vol] 27 U/L Normal 15-37 [facility] Comment on above: Performed By: #### L IPID, CMP #### [facility] [address] [address] [address] Juliet García Bilirubin [Mass/Vol] 0.4 mg/dL Normal 0.2-1.0 [facility] Comment on above: Performed By: #### L IPID, CMP #### [facility] [address] [address] [address] Juliet García Calcium [Mass/Vol] 8.7 mg/dL Normal 8.5-10.[address] [facility] Comment on above: Performed By: #### L IPID, CMP #### [facility] [address] [place] [address] Dr. Juliet García Chloride [Moles/Vol] 106 mmol/L Normal 98-107 [facility] Comment on above: Performed By: #### L IPID, CMP #### [facility] [address] [place] [address] Dr. Juliet García CO2 [Moles/Vol] 28.2 mmol/L Normal 21.0-32.0 [facility] Comment on above: Performed By: #### L IPID, CMP #### [facility] [address] [place] [address] Dr. Juliet García Creatinine [Mass/Vol] 1.21 mg/dL Normal 0.70-1.30 [facility] Comment on above: Performed By: #### L IPID, CMP #### [facility] [address] [address] [address] Juliet García EGFR-AF GERMAN >60 Normal >=60 [facility] Comment on above: Performed By: #### L IPID, CMP #### [facility] [address] [place] [address] Dr. Juliet García EGFR-NON AF GERMAN =60 Normal >=60 [facility] Comment on above: Performed By: #### L IPID, CMP #### [facility] [address] [address] [address] Juliet García Globulin (S) [Mass/Vol] 3.4 g/dL Normal [facility] Comment on above: Performed By: #### L IPID, CMP #### [facility] [address] [address] [address] Juliet García Glucose [Mass/Vol] 100 mg/dL Normal 74-106 [facility] Comment on above: Performed By: #### L IPID, CMP #### [facility] [address] [address] [address] Juliet García Potassium [Moles/Vol] 4.7 mmol/L Normal 3.5-5.1 [facility] Comment on above: Performed By: #### L IPID, CMP #### [facility] [address] [place] [address] Dr. Juliet García Protein [Mass/Vol] 7.1 g/dL Normal 6.4-8.2 [facility] Comment on above: Performed By: #### L IPID, CMP #### [facility] [address] [address] [address] Juliet García Sodium [Moles/Vol] 141 mmol/L Normal 136-145 [facility] Comment on above: Performed By: #### L IPID, CMP #### [facility] [address] [address] [address] Juliet García Urea nitrogen [Mass/Vol] 23.0 mg/dL Critically high 7.0-18.0 [facility] Comment on above: Performed By: #### L IPID, CMP #### [facility] [address] [address] [address] Juliet García Urea nitrogen/Creatinine [Mass ratio] 19.0 mg/mg Normal [facility] Comment on above: Performed By: #### L IPID, CMP #### [facility] [address] [place] [address] Dr. Juliet García VC CONSULT FOLLOWUPon 2021 VC CONSULT FOLLOWUP Patient: CARLOS LOCKE Exam Date: 04/08/2022 : 1955 Gender:M Ordering : DR RACHEAL GRAVES M.D. Admission #: [id number] Family : Order #: [id number] CLICK HERE [...] Racheal Graves MD on 04/08/2022 at 11:30 [facility] VC EXT VENOUS RT LIMITEDon 0 04-08-2022 VC EXT VENOUS RT LIMITED Patient: CARLOS LOCKE Exam Date: 04/08/2022 : 1955 Gender:M Ordering : DR RACHEAL GRAVES M.D. Admission #: [id number] Family : Order #: [id number] CLICK HERE TO VIEW EXAM RADIOLOGY REPORT [...] Graves MD on 04/08/2022 at 11:31 Normal [facility] VC INJ FOAM SCLERO W US MLTI on 04-03-2022 VC INJ FOAM SCLERO W US MLTI Patient: CARLOS LOCKE Exam Date: 04/03/2022 : 1955 Gender:M Ordering : DR RACHEAL GRAVES M.D. Admission #: [id number] Family : DR NATHALY BOONE . Order #: [id number] CLICK HERE TO VIEW EXAM RADIOLOGY REPORT [...] av (more content not included)... Normal [facility] VC CONSULT FOLLOWUPon 2021 VC CONSULT FOLLOWUP Patient: CARLOS LOCKE Exam Date: 03/25/2022 : 1955 Gender:M Ordering : DR RACHEAL GRAVES M.D. Admission #: [id number] Family : Order #: [id number] CLICK HERE TO VIEW EXAM RADIOLOGY REPORT [...] Kenny M.D. on 03/25/2022 at 08:41 Normal [facility] VC EXT VENOUS RT LIMITEDon 0 03-25-2022 VC EXT VENOUS RT LIMITED Patient: CARLOS LOCKERusty Exam Date: 03/25/2022 : 1955 Gender:M Ordering : DR RACHEAL GRAVES M.D. Admission #: [id number] Family : Order #: [id number] CLICK HERE TO VIEW EXAM RADIOLOGY REPORT [...] Kenny M.D. on 03/25/2022 at 08:39 Normal [facility] VC ENDOVENOUS ABL 1ST V RTon 03-19-2022 VC ENDOVENOUS ABL 1ST V RT Patient: CARLOS LOCKERusty Exam Date: 03/19/2022 : 1955 Gender:M Ordering : DR RACHEAL GRAVES M.D. Admission #: [id number] Family : Order #: [id number] CLICK HERE TO VIEW EXAM RADIOLOGY REPORT [...] navas. Time out procedure was performed. The right [...] Graves MD on 03/19/2022 at 08:58 Normal [facility] VC CONSULT FOLLOWUPon 2021 VC CONSULT FOLLOWUP Patient: CARLOS LOCKERusty Exam Date: 02/18/2022 : 1955 Gender:M Ordering : DR RACHEAL GRAVES M.D. Admission #: [id number] Family : Order #: [id number] CLICK HERE TO VIEW EXAM RADIOLOGY REPORT [...] Graves MD on 02/18/2022 at 09:45 Normal [facility] VC EXT VENOUS LT LIMITEDon 0 02-18-2022 VC EXT VENOUS LT LIMITED Patient: CARLOS LOCKERusty Exam Date: 02/18/2022 : 1955 Gender:M Ordering : DR RACHEAL GRAVES M.D. Admission #: [id number] Family : Order #: [id number] CLICK HERE TO VIEW EXAM RADIOLOGY REPORT [...] varicose veins remain off of SSV and programming engineer mid posterior calf. *Exam performed in accordance with [employer] practice guidelines- Peripheral venous ultrasound, October 07, 2009. 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 Admission #: [id number] Family : Order #: [id number] CLICK HERE TO VIEW EXAM RADIOLOGY REPORT [...] M.D. on 02/13/2022 at 10:15 Normal [facility] VC CONSULT FOLLOWUPon 2021 VC CONSULT FOLLOWUP Patient: CARLOS LOCKE Exam Date: 02/06/2022 : 1955 Gender:M Ordering : DR RACHEAL GRAVES M.D. Admission #: [id number] Family : Order #: [id number] CLICK HERE TO VIEW EXAM RADIOLOGY REPORT [...] M.D. on 02/06/2022 at 09:53 Normal [facility] VC EXT VENOUS LT LIMITEDon 0 02-06-2022 VC EXT VENOUS LT LIMITED Patient: CARLOS LOCKE Exam Date: 02/06/2022 : 1955 Gender:M Ordering : DR RACHEAL GRAVES M.D. Admission #: [id number] Family : Order #: [id number] CLICK HERE TO VIEW EXAM RADIOLOGY REPORT [...] Kenny M.D. on 02/06/2022 at 09:49 Normal [facility] GLYCOHEMOGLOBIN A1Con 2021 ADA RECOMMENDATION SEE BELOW Normal [facility] Comment on above: Result Comment: ADA RECOMMENDED LIMIT 4.0 - 6.0 ADA THERAPEUTIC TARGET < 7.0 ACTION SUGGESTED > 7.0 Performed By: #### A 1C #### [facility] [address] [address] [address] Juliet García Glucose [Mass/Vol] 108 mg/dL Normal [facility] Comment on above: Performed By: #### A 1C #### [facility] [address] [address] [address] Juliet García HbA1c (Bld) [Mass fraction] 5.4 % Normal 4.5-6.2 [facility] Comment on above: Performed By: #### A 1C #### [facility] [address] [address] [address] Juliet García PROF 14(COMP METB)on 022 Albumin [Mass/Vol] 4.0 g/dL Normal 3.4-5.[address] [facility] Comment on above: Performed By: #### C MP ####[facility] [address] [id number][address] Juliet García Albumin/Globulin [Mass ratio] 1.2 {ratio} Normal [facility] Comment on above: Performed By: #### C MP ####[facility] [address] [id number][address] Juliet García ALP [Catalytic activity/Vol] 89 U/L Normal 46-116 [facility] Comment on above: Performed By: #### C MP ####[facility] [address] [place] [id number]. Ortizlan Ricky ALT [Catalytic activity/Vol] 81 U/L Critically high 16-63 [facility] Comment on above: Performed By: #### C MP ####[facility] [address] [place] [address]Dr. Dianajavier Ricky Anion gap [Moles/Vol] 13.6 mmol/L Normal [facility] Comment on above: Performed By: #### C MP ####[facility] [address] [place], [place] [address]Dr. Juliet Ricky AST [Catalytic activity/Vol] 32 U/L Normal 15-37 [facility] Comment on above: Performed By: #### C MP ####[facility] [address] [place], [place] [address]Dr. Juliet García Bilirubin [Mass/Vol] 0.5 mg/dL Normal 0.2-1.0 [facility] Comment on above: Performed By: #### C MP ####[facility] S[address] [place], [place] [address]Dr. Juliet García Calcium [Mass/Vol] 8.9 mg/dL Normal 8.5-10.[address] [facility] Comment on above: Performed By: #### C MP ####[facility] [address] [place], [place] [address]Dr. Juliet García Chloride [Moles/Vol] 106 mmol/L Normal 98-107 [facility] Comment on above: Performed By: #### C MP ####[facility] [address] [place], [place] [address]Dr. Juliet García CO2 [Moles/Vol] 27.1 mmol/L Normal 21.0-32.0 [facility] Comment on above: Performed By: #### C MP ####[facility] [address] [place], [place] [address]Dr. Juliet García Creatinine [Mass/Vol] 1.46 mg/dL Critically high 0.70-1.30 [facility] Comment on above: Performed By: #### C MP ####[facility] [address] [place], [place] [address]Dr. Juliet García EGFR-AF GERMAN 59 mL/min/1.73m2 Critically low >=60 [facility] Comment on above: Performed By: #### C MP ####[facility] [address] [place] [id number]. Juliet García EGFR-NON AF GERMAN 48 mL/min/1.73m2 Critically low >=60 [facility] Comment on above: Performed By: #### C MP ####[facility] [address] [place] [address]Dr. Juliet Ricky Globulin (S) [Mass/Vol] 3.4 g/dL Normal [facility] Comment on above: Performed By: #### C MP ####[facility] Kn[address] [place], [place] [address]Dr. Juliet Ricky Glucose [Mass/Vol] 93 mg/dL Normal 74-[address] [facility] Comment on above: Performed By: #### C MP ####[facility] [address] [place] [address]Dr. Juliet Ricky Potassium [Moles/Vol] 4.7 mmol/L Normal 3.5-5.1 [facility] Comment on above: Performed By: #### C MP ####[facility] [address] [place], [place] [address]Dr. Juliet Ricky Protein [Mass/Vol] 7.4 g/dL Normal 6.4-8.2 [facility] Comment on above: Performed By: #### C MP ####[facility] [address] [place] [address]Dr. Juliet Ricky Sodium [Moles/Vol] 142 mmol/L Normal 136-145 [facility] Comment on above: Performed By: #### C MP ####[facility] [address] [place], [place] [address]Dr. Juliet Ricky Urea nitrogen [Mass/Vol] 25.0 mg/dL Critically high 7.0-18.0 [facility] Comment on above: Performed By: #### C MP ####[facility] [address] [place], [place] [address]DrRusty García Urea nitrogen/Creatinine [Mass ratio] 17.1 mg/mg Normal [facility] Comment on above: Performed By: #### C ####[facility] [address] [place], [place] [address]EnRusty García VC ENDOVENOUS ABL 1ST V LTon 01-30-2022 VC ENDOVENOUS ABL 1ST V LT Patient: CARLOS LOCKE Exam Date: 01/30/2022 : 1955 Gender:M Ordering : DR RACHEAL GRAVES M.D. Admission #: [id number] Family : Order #: [id number] CLICK HERE TO VIEW EXAM RADIOLOGY REPORT [...] M.D. on 01/30/2022 at 12:00 Normal [facility] POINT OF CARE GLUCOSEon 07- Glucose [Mass/Vol] 84 mg/dL Normal 74-[address] [facility] Comment on above: Performed By: #### P OCGLUC #### [facility] [address] [address] [address] Juliet García VC COMP CONSULTATIONon 01-21 VC COMP CONSULTATION Patient: CARLOS LOCKE Exam Date: 01/21/2022 : 1955 Gender:M Ordering : DR RACHEAL GRAVES M.D. Admission #: [id number] Family : Order #: [id number] CLICK HERE TO VIEW EXAM RADIOLOGY REPORT [...] for years. The patient is retired from [employer] after working 42 years. The patient denies [...] any additional information, and this was performed [facility]. See separate history and physical [...] incompetent branch saphenous tributary/varicose veins. Bilateral incompetent programming engineer veins. PHYSICAL EXAM: The right leg [...] pulses were present bilaterally. IMPRESSION: 1. Bilateral xaxs-nz-fonwumyl great saphenous vein and mild right small [...] Graves MD on 01/21/2022 at 11:46 Normal [facility] VC VENOUS REFLUX MARIE LMTon 0 01-21-2022 VC VENOUS REFLUX MARIE LMT Patient: CARLOS LOCKE Exam Date: 01/21/2022 : 1955 Gender:M Ordering : DR RACHEAL GRAVES M.D. Admission #: [id number] Family : DR NATHALY BOONE . Order #: [id number] CLICK HERE TO VIEW EXAM RADIOLOGY REPORT [...] Compressibility: Normal. Flow: Mild deep venous reflux. Quality Control Industrial Engineer: Post/prox calf 5.9mm, 0.7s reflux. Prox/med [...] MD on 01/21/2022 at 10:40 Normal [facility] POINT OF CARE GLUCOSEon 12-13 Glucose [Mass/Vol] 87 mg/dL Normal 74-[address] [facility] Comment on above: Performed By: #### P OCGLUC ####[facility] [address] [place], [place] [address]Kd. Juliet García SURGICAL PATHOLOGYon 021 SURGICAL PATHOLOGY Specimen #: [id number] Submitting Physician: JULIET GARCÍA M.D. FINAL DIAGNOSIS [place], [place]; [id number] (12/07/2020) Liver, mass , biopsy (A1, A2, [...] do not hesitate to contact us at [phone] with questions or if additional follow up information becomes available. This case was reviewed in conjunction with the GI pathology fellow, Apoorva Diallo MD. The following stains were performed at the [facility] in order to further characterize this [...] in-situ hybridization tests have been determined by [facility]'s [facility] [place] [facility]) in a manner consistent with CLIA requirements. One or more of these tests have not been cleared or approved by the FDA. [facility] is regulated under CLIA as qualified to perform high-complexity testing. These tests are used for clinical purposes. They should not be regarded as investigational or for research. Nicolasa Cheema M.D. (Electronic Signature) _ SPECIMEN SUBMITTED A: 12 slides [id number] CLINICAL DATA [facility] Date of Report: 03/27/2021 Date of Procedure: 03/16/2021 Date of Receipt: 03/15/2021 Submitted by: JULIET GARCÍA M.D. Location: Diagnostic interpretation performed at [facility], [address] [place] [address]. CLIA Number: [id number] Normal [facility] Comment on above: Performed By: #### S #### See report for performing lab information. Vital Signs Date Time Vital Sign Value Performing Clinician Facility 05-27-2024 08:56-0500 Blood Pressure Location LIZ FRANCORY [facility] 05-27-2024 08:56-0500 Body temperature 98.6 [degF] LIZ DAVID [facility] 05-27-2024 08:56-0500 Diastolic blood pressure 67 mm[Hg] LIZ DAVID [facility] 05-27-2024 08:56-0500 Heart rate 79 /min LIZ DAVID [facility] 05-27-2024 08:56-0500 Respiratory rate 18 /min LIZ DAVID [facility] 05-27-2024 08:56-0500 Systolic blood pressure 117 mm[Hg] LIZ DAVID [facility] 11-04-2023 08:38-0400 Blood Pressure Location LIZ DAVID [facility] 11-04-2023 08:38-0400 Diastolic blood pressure 82 mm[Hg] LIZ DAVID [facility] 11-04-2023 08:38-0400 Heart rate 80 /min LIZ DAVID [facility] 11-04-2023 08:38-0400 Respiratory rate 16 /min LIZ DAVID [facility] 11-04-2023 08:38-0400 Systolic blood pressure 131 mm[Hg] LIZ DAVID [facility] 06-03-2023 09:59-0500 Blood Pressure Location LIZ DAVID [facility] 06-03-2023 09:59-0500 Diastolic blood pressure 74 mm[Hg] LIZ DAVID [facility] 06-03-2023 09:59-0500 Heart rate 70 /min LIZ DAVID [facility] 06-03-2023 09:59-0500 Respiratory rate 16 /min LIZ DAVID [facility] 06-03-2023 09:59-0500 Systolic blood pressure 138 mm[Hg] LIZ DAVID [facility] 05-23-2022 09:45-0500 Body height 187.96 cm Alejandra Olexa Other [facility] Other 05-23-2022 09:45-0500 Body mass index (BMI) [Ratio] 40.57 kg/m2 Alejandra Olexa Other [facility] Other 05-23-2022 09:45-0500 Body weight 143.34 kg Alejandra Olexa Other [facility] Other 08-07-2021 14:15-0500 Body height 187.96 cm Alejandra Olexa Other [facility] Other 08-07-2021 14:15-0500 Body mass index (BMI) [Ratio] 40.64 kg/m2 Alejandra Olexa Other [facility] Other 08-07-2021 14:15-0500 Body weight 143.61 kg Alejandra Olexa Other [facility] Other 04-12-2021 10:30-0400 Body height 187.96 cm Racheal Daniels Other [facility] Other 04-12-2021 10:30-0400 Body mass index (BMI) [Ratio] 41.75 kg/m2 Racheal Daniels Other [facility] Other 04-12-2021 10:30-0400 Body weight 147.51 kg Racheal Daniels Other [facility] Other 04-12-2021 10:30-0400 Diastolic blood pressure 71 mm[Hg] Racheal Daniels Other [facility] Other 04-12-2021 10:30-0400 Systolic blood pressure 131 mm[Hg] Racheal Daniels Other [facility] Other Encounters Encounter Date Encounter Type Care Provider Facility Start: 05-27-2024 End: 05-27-2024 ambulatory LIZ HERNANDEZ Facility:[facility] Start: 05-27-2024 End: 05-27-2024 Patient encounter procedure LIZ HERNANDEZ [facility] Start: 01-12-2024 End: 01-12-2024 ambulatory HARINDER RGUGIERO Not Available Start: 11-04-2023 End: 11-04-2023 ambulatory LIZ HERNANDEZ Facility:[facility] Start: 11-04-2023 End: 11-04-2023 Patient encounter procedure LIZ E DAVID [facility] Start: 07-23-2023 End: 07-23-2023 ambulatory HARINDER RUGGIERO Not Available Start: 06-30-2023 End: 07-01-2023 ambulatory Donaldo Sparrow MD Facility:[facility] Start: 06-03-2023 End: 06-03-2023 Patient encounter procedure LIZ Ann HERNANDEZ [facility] Start: 01-06-2023 End: 01-07-2023 ambulatory Donaldo Sparrow MD Facility:[facility] Start: 12-05-2022 End: 12-06-[address] FELISA BERRIOS . Facility:[facility] Start: 12-03-2022 End: 12-04-[address] FELISA BERRIOS . Facility:[facility] Start: 11-29-2022 End: 11-30-2022 ambulatory CRISPIN OLVERAMIPATHY . Facility:[facility] Start: 11-12-2022 End: 11-13-[address] FELISA BERRIOS . Facility:[facility] Start: 11-05-2022 End: 11-06-[address] FELISA BERRIOS . Facility:[facility] Start: 10-28-2022 End: 10-29-[address] FELISA BERRIOS . Facility:[facility] Start: 10-21-2022 End: 10-21-[address] FELISA BERRIOS . Facility:[facility] Start: 10-18-2022 Encounter for preprocedural cardiovascular examination [facility] Noa [facility] Start: 10-18-2022 Encounter for preprocedural laboratory examination [facility] Noa [facility] Start: 10-16-[address] FELISA BERRIOS [...] BELL Facility:[facility] Start: 07-31-2022 End: 07-31-2022 ambulatory [facility] Start: 07-31-2022 End: 08-01-[address] [...] 05-23-2022 End: 05-23-2022 ambulatory Alejandra Cain Other [facility] Other Start: 05-23-2022 Office outpatient vi sit 15 minutes Alejandra Cain [facility] Start: 05-03-2022 End: 05-04-[address] FELISA [...] 08-07-2021 End: 08-07-2021 ambulatory Alejandra Cain Other [facility] Other Start: 08-07-2021 Office outpatient vi sit 15 minutes Alejandra Cain [facility] Start: 04-12-2021 Office outpatient vi sit 15 minutes Racheal Daniels [facility] Gastroenterology Procedures Date Procedure Procedure Detail Performing Clinician Start: 05-03-[address] RACHEAL GRAVES Comment on above: Performed By: #### P SAD #### [facility] [address] [place] [address] Dr. Juliet García Start: 12-07-2020 CT guided biopsy NATALIE HERNANDEZ Comment on above: LIVER. NO SEDATION. Arthroscopy of knee LIZ HERNANDEZ Bilateral cataracts (disorder) LIZ HERNANDEZ H/O: vasectomy LIZ FRANCOR Y Titanium (substance) JOSE R DAVID Comment on above: Toe Tonsillectomy LIZ HERNANDEZ Immunizations Immunization Date Immunization Notes Care Provider Fa [facility] 04-19-2024 influenza virus vacc ine, unspecified formulation LIZ HERNANDEZ [facility] 04-20-2023 SARS-CoV-2 mRNA (tozinameran 5y-11y) vaccine LIZ HERNANDEZ [facility] Comment on above: Result Comment: covi d 19 mRNA ([facility]) 04-17-2022 influenza virus vacc ine, unspecified formulation LIZ HERNANDEZ [facility] 03-23-2022 SARS-CoV-2 (COVID-19 ) [id number] LIZ HERNANDEZ [facility] 10-23-2021 SARS-CoV-2 mRNA (zdsnpkywvfp-pxvi-jpteim e) vaccine LIZ HERNANDEZ [facility] 05-27-2021 pneumococcal polysaccharide vaccine, 23 valent LIZ HERNANDEZ [facility] 05-06-2021 SARS-CoV-2 (COVID-19 ) mRNA BNT-162u4 vax LIZ HERNANDEZ [facility] Comment on above: Result Comment: 2021: [id number] 04-07-2021 influenza virus vacc ine, unspecified formulation LIZ DAVID [facility] 09-18-2020 SARS-CoV-2 (COVID-19 ) mRNA BNT-162b2 vax LIZ DAVID [facility] 04-19-2020 influenza virus vacc ine, unspecified formulation LIZ DAVID [facility] 04-15-2020 influenza virus vacc ine, unspecified formulation LIZ DAVID [facility] 04-20-2018 influenza virus vacc ine, unspecified formulation LIZ DAVID [facility] 03-24-2018 influenza virus vacc ine, unspecified formulation LIZ DAVID [facility] 05-01-2013 influenza virus vacc ine, unspecified formulation LIZ DAVID [facility] Payers Date Payer Category Payer Medicare 2022 Unknown 2022 Unknown [id number] 2021 Medicare [id number] 2019 Unknown [id number] 2. [id number] 1959 Medicare [id number] 1955 Unknown [id number] 2.16.84 0.1.199032.3.579.2.593 1955 Unknown [id number] 2.16.84 0.1.112592.3.579.2.593 1955 Unknown [id number] 2.16.84 0.1.140524.3.579.2.593 1955 Unknown [id number] 2.16.84 0.1.999491.3.579.2.593 1955 Unknown [id number] 2.16.84 0.1.450544.3.579.2.593 1956 Unknown [id number] 2.16.84 0.1.243375.3.579.2.593 1956 Unknown [id number] 2.16.84 0.1.185670.3.579.2.593 1956 Unknown [id number] 2.16.84 0.1.819974.3.579.2.593 1956 Unknown [id number] 2.16.84 0.1.030217.3.579.2.593 1956 Unknown [id number] 2.16.84 0.1.802443.3.579.2.593 1956 Unknown [id number] 2.16.84 0.1.347707.3.579.2.593 1956 Unknown [id number] 2.16.84 0.1.522869.3.579.2.593 1956 Unknown [id number] 2.16.84 0.1.741065.3.579.2.593 1956 Unknown [id number] 2.16.84 0.1.226487.3.579.2.593 1956 Unknown [id number] 2.16.84 0.1.665501.3.579.2.593 1956 Unknown [id number] 2.16.84 0.1.250630.3.579.2.593 1956 Unknown [id number] 2.16.84 0.1.957942.3.579.2.593 1956 Unknown [id number] 2.16.84 0.1.263060.3.579.2.593 1956 Unknown [id number] 2.16.84 0.1.907335.3.579.2.593 1956 Unknown [id number] 2.16.84 0.1.174860.3.579.2.593 1956 Unknown [id number] 2.16.84 0.1.412205.3.579.2.593 1956 Unknown [id number] 2.16.84 0.1.054544.3.579.2.593 1956 Unknown [id number] 2.16.84 0.1.238241.3.579.2.593 1956 Unknown [id number] 2.16.84 0.1.834434.3.579.2.593 1956 Unknown [id number] 2.16.84 0.1.820366.3.579.2.593 1956 Unknown [id number] 2.16.84 0.1.676632.3.579.2.593 1956 Unknown [id number] 2.16.84 0.1.834010.3.579.2.593 1956 Unknown [id number] 2.16.84 0.1.691616.3.579.2.593 1956 Unknown [id number] 2.16.84 0.1.753780.3.579.2.593 1955 Unknown [id number] 2.16.84 0.1.627403.3.579.2.593 1956 Unknown [id number] 2.16.84 0.1.622103.3.579.2.593 1956 Unknown [id number] 2.16.84 0.1.200831.3.579.2.593 1956 Unknown [id number] 2.16.84 0.1.857288.3.579.2.593 1956 Unknown [id number] 2.16.84 0.1.068981.3.579.2.593 1956 Unknown [id number] 2.16.84 0.1.773379.3.579.2.593 1956 Unknown [id number] 2.16.84 0.1.745735.3.579.2.593 1956 Unknown [id number] 2.16.84 0.1.179020.3.579.2.593 1956 Unknown [id number] 2.16.84 0.1.912888.3.579.2.593 1956 Unknown [id number] 2.16.84 0.1.570631.3.579.2.593 1956 Unknown [id number] 2.16.84 0.1.125519.3.579.2.593 1956 Unknown [id number] 2.16. 840.1.904372.3.579.2.196 1956 Unknown [id number] 2.16. 840.1.719996.3.579.2.196 1956 Unknown [id number] 2.16. 840.1.761221.3.579.2.196 1956 Unknown [id number] 2.16.84 0.1.140785.3.579.2.1259 1956 Unknown [id number] 2.16.84 0.1.830586.3.579.2.1259 1955 Unknown [id number] 2.16.8 40.1.644454.3.579.2.727 1955 Unknown [id number] 2.16.8 40.1.257924.3.579.2.727 Social History Date Type Detail Facility Sex Assigned At [facility] Start: 06-03-2023 End: 05-27-2024 Tobacco smoking status Never smoked tobacco (finding) [facility] Tobacco smoking status Never [facility] Functional Status Date Assessment Result Facility 05-27-2024 Functional Status N/A [facility] 11-04-2023 Functional Status N/A [facility] 06-03-2023 Functional Status N/A [facility] Clinical Notes 04-12-2021 to 05-27-2024 Note Date & Type Note Facility 05-27-2024 Hospital Discharge instructions Patient Education 05/27/2024 09:56:36 Kidney Stones, Elqq-xu-Kpsg Kidney Stones Kidney stones are rock-like masses that form inside of the kidneys. Kidneys are organs that make pee (urine). A kidney stone may move into other parts of the urinary tract, including: The tubes that connect the kidneys to the bladder (ureters). The bladder. The tube that carries urine out of the body (urethra). Kidney stones can cause very bad pain and can block the flow of pee. The stone usually leaves your body through your pee. A doctor may need to take out the stone. What are the causes? Kidney stones may be caused by: Too much calcium in the body. This may be caused by too much parathyroid hormone in the blood. Uric acid crystals in the bladder. The body makes uric acid when you eat certain foods. Narrowing of one or both of the ureters. A kidney blockage that you were born with. Past surgery on the kidney or the ureters. What increases the risk? You are more likely to develop this condition if: You have had a kidney stone in the past. Other people in your family have had kidney stones. You do not drink enough water. You eat a diet that is high in protein, salt (sodium), or sugar. You are very overweight (obese). What are the signs or symptoms? Symptoms of a kidney stone may include: Pain in the side of the belly, right below the ribs. Pain usually spreads to the groin. Needing to pee often or right away. Pain when peeing. Blood in your pee. Feeling like you may vomit (nauseous). Vomiting. Fever and chills. How is this treated? Treatment depends on the size, location, and makeup of the kidney stones. The stones will often pass out of the body when you pee. You may need to: Drink more fluid to help pass the stone. ?In some cases, you may be given fluids through an IV tube at the hospital. Take medicine for pain. Change your diet to help keep kidney stones from coming back. Sometimes, you may need: A procedure to break up kidney stones using a beam of light (laser) or shock waves. Surgery to remove the kidney stones. Follow these instructions at home: Medicines Take ptvt-jiu-pumnqrk and prescription medicines only as told by your doctor. Ask your doctor if the medicine prescribed to you requires you to avoid driving or using machinery. Eating and drinking Drink enough fluid to keep your pee pale yellow. ?You may be told to drink at least 8 10 glasses of water each day. This will help you pass the stone. If told by your doctor, change your diet. You may be told to: ?Limit how much salt you eat. ?Eat more fruits and vegetables. ?Limit how much meat, poultry, fish, and eggs you eat. Follow instructions from your doctor about what you may eat and drink. General instructions Collect pee samples as told by your doctor. You may need to collect a pee sample: ?24 hours after a stone comes out. ?8 12 weeks after a stone comes out, and every 6 12 months after that. Strain your pee every time you pee. Use the strainer that your doctor recommends. Do not throw out the stone. Keep it so that it can be tested by your doctor. Keep all follow-up visits. You may need X-rays and ultrasounds to make sure the stone has come out. How is this prevented? To prevent another kidney stone: Drink enough fluid to keep your pee pale yellow. This is the best way to prevent kidney stones. Eat healthy foods. Avoid certain foods as told by your doctor. You may be told to eat less protein. Stay at a healthy weight. Where to find more information National Kidney Foundation (NKF): kidney.org [facility] ([facility]): urologyhealth.org Contact a doctor if: You have pain that gets worse or does not get better with medicine. Get help right away if: You have a fever or chills. You get very bad pain. You get new pain in your belly. You faint. You cannot pee. This information is not intended to replace advice given to you by your health care provider. Make sure you discuss any questions you have with your health care provider. Document Revised: 02/21/2023 Document Reviewed: 02/21/2023 [employer] Patient Education 2023 [employer]. Follow Up Care 11/04/2023 09:32:44 With:DAVID IVAN, LIZ Juarez, URL Address: When:1 year [facility] 05-27-2024 Note Patient Education Urology Kidney Stones Kidney stones are rock-like masses that form inside of the kidneys. Kidneys are organs that make pee (urine). A kidney stone may move into other parts of the urinary tract, including: ??? The tubes that connect the kidneys to the bladder (ureters). ??? The bladder. ??? The tube that carries urine out of the body (urethra). Kidney stones can cause very bad pain and can block the flow of pee. The stone usually leaves your body through your pee. A doctor may need to take out the stone. What are the causes? Kidney stones may be caused by: ??? Too much calcium in the body. This may be caused by too much parathyroid hormone in the blood. ??? Uric acid crystals in the bladder. The body makes uric acid when you eat certain foods. ??? Narrowing of one or both of the ureters. ??? A kidney blockage that you were born with. ??? Past surgery on the kidney or the ureters. What increases the risk? You are more likely to develop this condition if: ??? You have had a kidney stone in the past. ??? Other people in your family have had kidney stones. ??? You do not drink enough water. ??? You eat a diet that is high in protein, salt (sodium), or sugar. ??? You are very overweight (obese). What are the signs or symptoms? Symptoms of a kidney stone may include: ??? Pain in the side of the belly, right below the ribs. Pain usually spreads to the groin. ??? Needing to pee often or right away. ??? Pain when peeing. ??? Blood in your pee. ??? Feeling like you may vomit (nauseous). ??? Vomiting. ??? Fever and chills. How is this treated? Treatment depends on the size, location, and makeup of the kidney stones. The stones will often pass out of the body when you pee. You may need to: ??? Drink more fluid to help pass the stone. ? In some cases, you may be given fluids through an IV tube at the hospital. ??? Take medicine for pain. ??? Change your diet to help keep kidney stones from coming back. Sometimes, you may need: ??? A procedure to break up kidney stones using a beam of light (laser) or shock waves. ??? Surgery to remove the kidney stones. Follow these instructions at home: Medicines ??? Take fnqx-wsx-zgrtwnj and prescription medicines only as told by your doctor. ??? Ask your doctor if the medicine prescribed to you requires you to avoid driving or using machinery. Eating and drinking ??? Drink enough fluid to keep your pee pale yellow. ? You may be told to drink at least 8?10 glasses of water each day. This will help you pass the stone. ??? If told by your doctor, change your diet. You may be told to: ? Limit how much salt you eat. ? Eat more fruits and vegetables. ? Limit how much meat, poultry, fish, and eggs you eat. ??? Follow instructions from your doctor about what you may eat and drink. General instructions ??? Collect pee samples as told by your doctor. You may need to collect a pee sample: ? 24 hours after a stone comes out. ? 8?12 weeks after a stone comes out, and every 6?12 months after that. ??? Strain your pee every time you pee. Use the strainer that your doctor recommends. ??? Do not throw out the stone. Keep it so that it can be tested by your doctor. ??? Keep all follow-up visits. You may need X-rays and ultrasounds to make sure the stone has come out. How is this prevented? To prevent another kidney stone: ??? Drink enough fluid to keep your pee pale yellow. This is the best way to prevent kidney stones. ??? Eat healthy foods. ??? Avoid certain foods as told by your doctor. You may be told to eat less protein. ??? Stay at a healthy weight. Where to find more information ??? National Kidney Foundation (NKF): kidney.org ??? Urology Care Foundation (UCF): urologyhealth.org Contact a doctor if: ??? You have pain that gets worse or does not get better with medicine. Get help right away if: ??? You have a fever or chills. ??? You get very bad pain. ??? You get new pain in your belly. ??? You faint. ??? You cannot pee. This information is not intended to replace advice given to you by your health care provider. Make sure you discuss any questions you have with your health care provider. Document Revised: 02/21/2023 Document Reviewed: 02/21/2023 [employer] Patient Education ? 2023 [employer]. [facility] 11-04-2023 Hospital Discharge instructions Patient Education 11/04/2023 [...] Follow these instructions at home: Medicines Take dssx-eim-khbhahd and prescription medicines only as told by [...] provider. Document Revised: 09/26/2021 Document Reviewed: 09/26/2021 [employer] Patient Education 2022 [employer]. Follow Up Care 06/03/2023 10:28:55 With:LIZ HERNANDEZ PA-C, URL Address: [address] [place] [address] [phone] When: Unknown [facility] 06-03-2023 Hospital Discharge instructions Patient Education [...] treatment? Where to find more information The [place] [employer]: www.cancer.org [place] U[employer] Association: www.auanet.org Contact a health care [...] provider. Document Revised: 12/24/2021 Document Reviewed: 12/24/2021 [employer] Patient Education 2022 [employer] Follow Up Care 05/29/2022 11:47:27 With:LIZ HERNANDEZ PA-C, URL Address: [address] [place] [address] [phone] When: Unknown Comments:6 mos w/ PSA [facility] 12-03-2022 Note PROCEDURE: XR FOOT L [...] authenticated by: ELIN KENNY Date: 2022-12-03 09:57 [facility] 11-12-2022 Note PROCEDURE: XR FOOT [...] authenticated by: ZAFAR FERRER Date: 2022-11-12 13:59 [facility] 10-22-2022 Note PROCEDURE: XR FOOT [...] authenticated by: ELIN KENNY Date: 2022-10-22 07:48 [facility] 10-22-2022 Note PROCEDURE: XR FOOT L T 2V HISTORY: Pain COMPARISON: XR foot left 10/21/2022 FINDINGS: BONES:Multiple intraoperative spot fluoroscopic images demonstrate mechanical fusion of the first metatarsophalangeal joint and resection of head of first proximal phalanx. IMPRESSION: 1. Surgical changes of left first toe as detailed above. Electronically authenticated by: ELIN KENNY Date: 2022-10-22 07:46 [facility] 07-31-2022 Note Currently stable [facility] 07-31-2022 Note Hypertension is well controlled 114/64 Continue lisinopril 5 mg Recent CR elevated 1.59- his cr typically has been 1.2-1.4 - He has been on antibiotics for Lt foot infection- DFU with wound care. [facility] 07-31-2022 Note Lipid abnormalities are currently well controlled with lipitor 20 mg- LDL currently 58.6 on labs 07/26/2022 Liver function 04/2022 were normal [facility] 07-31-2022 Note UTP CARDIOLOGY PROGR ESS NOTE [...] RTC 1 year or earlier if needed [facility] 07-31-2022 Note Patient here for 6 m o follow up history of PE and hyperlipidemia. Had labs in Apr and echo in Jun 2022. Patient denies chest pain, SOB, and increase in LE edema. Doing very well from cardiac standpoint. Was seeing Dr. Graves for his varicose veins. Review of Systems Cardiovascular: Positive for leg swelling. All other systems reviewed and are negative. [facility] 07-31-2022 Note CONSULTATION PROCEDURE DATE: 07/31/2022 INDICATIONS: [...] the clinic in three months' time. [facility] 07-25-2022 Note CONSULTATION CONSULTATION DATE: [...] a [place] vacation, where he visited multiple [employer] mayes and had a lot of increased [...] and will be contacted upon approval. [facility] 07-24-2022 Note PROCEDURE: XR FOOT [...] by: ELIN KENNY Date: 2022-07-24 10:21 [facility] 06-10-2022 Note PROCEDURE: XR KNEE L T 4V or > HISTORY: Pain in left knee ; chronic left knee pain COMPARISON: XR knee bilateral 05/31/2021 FINDINGS: BONES:Marked narrowing of the medial joint space with suspected zgwp-ox-ziqb articulation. Moderate-marked narrowing of the lateral compartment. Mild narrowing of anterior compartment. Small periarticular osteophytes involving the margins of all 3 compartments. No fracture or dislocation. SOFT TISSUES:No visible soft tissue swelling. EFFUSION:Small joint effusion. OTHER: Negative. IMPRESSION: 1. Marked degenerative joint disease. Stable to minimally progressed. Electronically authenticated by: ELIN KENNY Date: 2022-06-10 19:35 [facility] 05-23-2022 Evaluation note Encounter Date [...] Pain in left knee (ICD-10 - M25.562) [facility] Other 10-11-2022 NoteCONSULTATION CONSULTATION DATE: 04/23/2022 CHIEF [...] the time being. CC: Felisa Berrios M.D.[facility] [id number] NoteCONSULTATION CONSULTATION DATE: 04/04/2022 HISTORY OF PRESENT [...] indicated. Patient agreed with plan of care.[facility]Dafdhxuh07-31-1095 Note CONSULTATION CONSULTATION DATE: 02/14/2022 HISTORY OF [...] time unless otherwise indicated. Patient acknowledges understanding.[id number] NoteCONSULTATION PROCEDURE DATE: 02/14/2022 PREOPERATIVE DIAGNOSIS: Bilateral [...] will be followed up in the office.[id number] Evaluation note* Encounter Date Diagnosis Assessment Notes [...] Pain in left knee (ICD-10 - M25.562) [facility] 09-30-2021 Evaluation note* Encounter Date Diagnosis Assessment Notes Treatment Notes Treatment Clinical Notes Mar, Liver hemangioma (ICD-10 - D18.03) Mar, HODGES (nonalcoholic steatohepatitis) (ICD-10 - K75.81) [facility] Other Evaluation + Plan note Future Appointments Appointment Date:11/04/2023 08:30:00 AM Scheduled Provider:LIZ HERNANDEZ PA-C Location:[facility] Appointment Type:URO Office Visit Diagnostic Tests Pending * PSA Total 11/21/23 [facility] [employer] evaluation + Plan note Future Appointments Appointment Date:05/25/2024 08:40:00 AM Scheduled Provider:LIZ HERNANDEZ PA-C Location:[facility] Appointment Type:URO Office Visit [facility] [employer] History general Narrative - Reported* Type Description Date Medical History DM II Medical History HTN Medical History hyperlipidemia Medical History gout Surgical History knee surgery Surgical History tonsillectomy Surgical History vasectomy Surgical History sinus surgery Surgical History back injections Hospitalization History SEE ABOVE SURGICAL HX [facility] Other Hospital course Narrative No data available for this section [facility] [employer] progress note No data available for this section [facility] [employer] Summary Purpose Family History No Family History Records FoundNo Family History Records FoundNo Family History Records Found No data available for this section No Family History Records Found No data available for this section No Family History Records Found No data available for this section No Family History Records Found Advance Directives No [...] section and content) DATE CREATED AUTHOR 03/29/2021 [facility] DATE CREATED AUTHOR AUTHOR'S ORGANIZ ATION 08/06/2022 [facility] DATE CREATED AUTHOR AUTHOR'S ORGANIZ ATION 12/20/2022 [facility] DATE CREATED AUTHOR AUTHOR'S ORGANIZ ATION 07/05/2023 [facility] DATE CREATED AUTHOR AUTHOR'S ORGANIZ ATION 01/12/2024 [facility] DATE CREATED AUTHOR AUTHOR'S ORGANIZ ATION 06/17/2024 [facility] REASON FOR VISIT (unrecogniz ed section and content) PT HERE FOR 4 WEEK FOLLOW UP LIVER LESION LABS WERE ORDERED AT LAST OFFICE VISITBilateral Knee PainRecheck Bilateral Knees Patient Care team informatio n (unrecognized section and content) Personnel Name: FELISA BERRIOS MD Address: Address: [address] [place] [address] Personnel Name: HARINDER RUGGIERO MD Address: Address: [address] [place], [place] [address]HERSON [place]iza [place], [facility] Personnel Name: HARINDER RUGGIERO MD Address: Address: [facility] CARMENZA Liza [place], [facility] US FOR RECORDS PERTAINING TO PATIENTS WHO ARE [...] BE BASED ON THE PRIMARY CLINICAL RECORDS. Powered [facility]. provides no warranty or guarantee of the accuracy or completeness of information in this document.
== END 2024-06-28 07:30 | disposition home or self-care (01) ==
LOC: CARD 07:29
PROVIDERS: PCP Family Medicine; Visit Provider Internal Medicine Interventional Cardiology
DX: R68.89 Other general symptoms and signs (principal); I10 Essential (primary) hypertension
CPT/HCPCS: 93306

== ENCOUNTER 2024-07-20 08:39 | Outpatient (OUT) | payer BC, MEDICARE, SELFPAY ==
--- NOTE | 2024-07-20 09:06 | ECG_ITS ---
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
--- NOTE | 2024-07-20 09:06 | XR_ITS ---
The [address] [address] Patient Name: CARLOS LOCKE MRN: [id number] date: 1955 Sex: M Assigned Patient Location: [facility] Current Patient Location: LAB Accession/Order Number: [id number] Exam Date: 07/20/2024 10:06 Report Date: 07/20/2024 17:05 At the request of: ERIN CRUZ Procedure: XR chest 2V EXAM: XR chest 2V HISTORY: Preop exam COMPARISON: None. TECHNIQUE: 2 views FINDINGS: The heart and mediastinum are unremarkable lungs are clear. XR/XR chest 2V IMPRESSION: No acute cardiopulmonary pathology. Electronically authenticated by: Te CABRERA Date: 07/20/2024 17:05
[2024-07-20 10:11] LABS: Bilirubin Urine NEGATIVE (NEGATIVE); Blood Urine NEGATIVE (NEGATIVE); Clarity Urine CLEAR (CLEAR); Color Urine LT. YELLOW (YELLOW); Glucose Urine UA NEGATIVE (NEGATIVE); Ketones Urine NEGATIVE (NEGATIVE); Leukocyte Esterase Urine NEGATIVE (NEGATIVE); Nitrite Urine NEGATIVE (NEGATIVE); Protein Urine NEGATIVE (NEG/TRACE); Specific Gravity Urine 1.025 (1.005-1.025); Urobilinogen Urine 0.2 EU/dL (0.2-1.0)
[2024-07-20 10:12] LABS: Basophils Absolute Auto 0.1 10^3/uL (0.0-0.1); Basophils Percent Auto 0.9 % (0.2-2.0); Eosinophils Absolute Auto 0.3 10^3/uL (0.0-0.7); Eosinophils Percent Auto 4.9 % (0.9-7.0); Hematocrit 44.7 % (42.0-54.0); Hemoglobin 14.9 g/dL (14.0-18.0); Immature Granulocytes Abs Auto 0.02 10^3/uL (0.00-0.03); Immature Granulocytes Pct Auto 0.3 % (0.0-0.5); Lymphocytes Absolute Auto 1.5 10^3/uL (1.2-3.8); Mean Corpuscular HGB Conc 33.3 g/dL (29.9-35.2); Mean Corpuscular Hemoglobin 32.3 pg (25.9-34.0); Mean Platelet Volume 8.8 fL (9.5-13.5); Monocytes Absolute Auto 0.5 10^3/uL (0.3-0.8); Monocytes Percent Auto 7.9 % (1.7-12.0); Neutrophils Absolute Auto 4.1 10^3/uL (1.4-6.5); Platelet Count 226 10^3/uL (150-450); Red Blood Count 4.61 10^6/uL (4.70-6.10); Red Cell Distribution Width 13.7 % (11.0-15.0); White Blood Count 6.6 10^3/uL (4.0-11.0)
[2024-07-20 10:13] LABS: Urine Microscopic Indicated NO
[2024-07-20 10:24] LABS: Estimated Average Glucose 111 mg/dL; Glycohemoglobin A1C 5.5 % (4.5-6.2)
[2024-07-20 10:27] LABS: INR 1.05; Partial Thromboplastin Time 27.6 sec (22.3-36.2); Prothrombin Time 11.1 sec (9.0-11.6)
[2024-07-20 10:30] LABS: Anion Gap 12.9; BUN Creatinine Ratio 17.9; Calcium 9.2 mg/dL (8.5-10.1); Carbon Dioxide 27.2 mmol/L (21.0-32.0); Chloride 106 mmol/L (98-107); Estimated GFR (African America 56 (>=60 mL/min/1.73m^2); Estimated GFR (Non-African Ame 46 (>=60 mL/min/1.73m^2); Glucose 100 mg/dL (74-106); Potassium 5.1 mmol/L (3.5-5.1); Sodium 141 mmol/L (136-145)
[2024-07-20 11:25] LABS: Alanine Aminotransferase 64 U/L (16-63); Albumin Level 3.9 g/dL (3.4-5.0); Alkaline Phosphatase 99 U/L (46-116); Aspartate Amino Transferase 35 U/L (15-37); Bilirubin Direct 0.1 mg/dL (0.0-0.2); Bilirubin Total 0.4 mg/dL (0.2-1.0); Total Protein 7.9 g/dL (6.4-8.2)
--- NOTE | 2024-07-20 15:19 | ECG_ITS ---
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
== END 2024-07-20 08:40 | disposition home or self-care (01) ==
LOC: PST 08:39
PROVIDERS: PCP Family Medicine; Visit Provider Student in an Organized Health Care Education/Training Program
DX: Z01.810 Encounter for preprocedural cardiovascular examination (principal); Z01.812 Encounter for preprocedural laboratory examination; M17.12 Unilateral primary osteoarthritis, left knee
CPT/HCPCS: 36415; 71046; 80048; 80061; 80076; 81003; 83036; 84443; 85025; 85610; 85730; 87081; 93005; G0103

== ENCOUNTER 2024-07-20 08:43 | Outpatient (OUT) | payer BC, MEDICARE, SELFPAY ==
[2024-07-20 11:12] LABS: Chol HDL Ratio 6.9; Cholesterol 221 mg/dL (<=200); HDL Cholesterol 32 mg/dL (40-60); Thyroid Stimulating Hormone 3.394 uIU/mL (0.358-3.740); Triglycerides 304 mg/dL (<=150); VLDL CHOLESTEROL 60.8 mg/dL
== END 2024-07-20 08:44 | disposition home or self-care (01) ==
LOC: LAB 08:45
PROVIDERS: PCP Family Medicine; Visit Provider Family Medicine
DX: Z00.00 Encounter for general adult medical examination without abnormal findings (principal)
CPT/HCPCS: 80061; 84443; G0103

== ENCOUNTER 2024-08-04 08:40 | Outpatient (OUT) | payer BC, MEDICARE, SELFPAY ==
--- NOTE | 2024-08-04 09:05 | PM.CN ---
Consult Note: HPI Data of Consult Patient: known to practice within the last 3 years Requesting Physician: Gracie Chaudhry NP Primary Care Provider: Tulio Madrid MD Consult Narrative Reason for consult: f/u Narrative: Warner Caraballo a pleasant 68 year old male presents for evaluation of chronic low back pain. Today rating pain 1/10 in low back, pain increasing to 8/10 with standing, walking, pushing, pulling, transitioning, bending, activity. Pain improved with lying and heat. Finds benefit to diclofenac, gabapentin, flexeril, and tramadol without side effects. Currently holding diclofenac as he is having left knee replacement on 08/09/24. Pt reports >50% improvement for 6 months from prior lumbar RFAs. cc:: CC: Gracie Chaudhry NP Review of Systems ROS Status of ROS 10 or more systems reviewed and unremarkable except as noted in history and below Musculoskeletal Reports: back pain and joint pain PFSH [facility] Medical History (Updated 07/20/24 @ 09:55 by Carline Fowler NP) Insomnia ?G47.00 - Insomnia, unspecified (ICD-10) Seasonal allergic rhinitis ?J30.2 - Other seasonal allergic rhinitis (ICD-10) Polyneuropathy due to type 2 diabetes mellitus ?E11.42 - Type 2 diabetes mellitus with diabetic polyneuropathy (ICD-10) Nonalcoholic fatty liver ?K76.0 - Fatty (change of) liver, not elsewhere classified (ICD-10) Hypogonadism Degenerative disc disease, lumbar ?M51.369 - Other intervertebral disc degeneration, lumbar region without mention of lumbar back pain or lower extremity pain (ICD-10) Pseudophakia ?Z96.1 - Presence of intraocular lens (ICD-10) Cataract ?H26.9 - Unspecified cataract (ICD-10) Lumbar spondylosis ?M47.816 - Spondylosis without myelopathy or radiculopathy, lumbar region (ICD-10) Diabetes mellitus ?E11.9 - Type 2 diabetes mellitus without complications (ICD-10) Knee pain ?M25.569 - Pain in unspecified knee (ICD-10) Back pain ?M54.9 - Dorsalgia, unspecified (ICD-10) Hypertension ?I10 - Essential (primary) hypertension (ICD-10) Gout ?M10.9 - Gout, unspecified (ICD-10) Sleep apnea ?G47.30 - Sleep apnea, unspecified (ICD-10) Hyperlipidemia ?E78.5 - Hyperlipidemia, unspecified (ICD-10) Myofascial pain ?M79.18 - Myalgia, other site (ICD-10) Lumbar stenosis with neurogenic claudication ?M48.062 - Spinal stenosis, lumbar region with neurogenic claudication (ICD-10) Bilateral primary osteoarthritis of knee ?M17.0 - Bilateral primary osteoarthritis of knee (ICD-10) Pulmonary embolism (07/2020) ?I26.99 - Other pulmonary embolism without acute cor pulmonale (ICD-10) COVID-19 (07/2020) ?U07.1 - COVID-19 (ICD-10) Kidney stones ?N20.0 - Calculus of kidney (ICD-10) Knee osteoarthritis ?M17.9 - Osteoarthritis of knee, unspecified (ICD-10) Fusion, toes ?Q70.20 - Fused toes, unspecified foot (ICD-10) Surgical History H/O sinus surgery ?Z98.890 - Other specified postprocedural states (ICD-10) History of vasectomy ?Z98.52 - Vasectomy status (ICD-10) S/P cataract extraction and insertion of intraocular lens ?Z98.49 - Cataract extraction status, unspecified eye (ICD-10) ?Z96.1 - Presence of intraocular lens (ICD-10) History of radiofrequency ablation (RFA) of nerve of lumbar spine ?Z98.890 - Other specified postprocedural states (ICD-10) S/P epidural steroid injection ?Z92.241 - Personal history of systemic steroid therapy (ICD-10) History of foot surgery ?Z98.890 - Other specified postprocedural states (ICD-10) History of tonsillectomy and adenoidectomy ?Z90.89 - Acquired absence of other organs (ICD-10) S/P right knee arthroscopy ?Z98.890 - Other specified postprocedural states (ICD-10) S/P left knee arthroscopy ?Z98.890 - Other specified postprocedural states (ICD-10) Family History Other Family history of diabetes mellitus Family history of hypertension Family history of prostate cancer Family history of stroke Social History Within the past year, how often did you have a drink containing alcohol: monthly or less Smoking status: Never smoker Non-prescribed substance use: denies use Previous occupational history: RETIRED Highest level of school completed/degree received: high school graduate Meds Home Medications and Allergies Home Medications ?Medication ?Instructions ?Recorded ?Confirmed ?Type acetaminophen 500 mg tablet 1,000 mg PO Q6H PRN pain 01/06/23 07/20/24 History (Acetaminophen Extra Strength) ascorbic acid (vitamin C) 500 mg 500 mg PO BID 01/06/23 07/20/24 History tablet (C-500) atorvastatin 20 mg tablet 20 mg PO DAILY 01/06/23 07/20/24 History cholecalciferol (vitamin D3) 25 1,000 unit PO BID 01/06/23 07/20/24 History mcg (1,000 unit) tablet (Vitamin D3) colchicine 0.6 mg tablet 0.6 mg PO TID 01/06/23 07/20/24 History diclofenac sodium 50 mg 50 mg PO Q12H 01/06/23 07/20/24 History tablet,delayed release febuxostat 40 mg tablet 40 mg PO DAILY 01/06/23 07/20/24 History gabapentin 300 mg capsule 300 mg PO TID 01/06/23 07/20/24 History lisinopril 5 mg tablet 5 mg PO DAILY 01/06/23 07/20/24 History metformin 500 mg tablet,extended 500 mg PO DAILY 01/06/23 07/20/24 History release 24 hr probenecid 500 mg tablet 500 mg PO BID 01/06/23 07/20/24 History tizanidine 4 mg tablet 8 mg PO Q6H PRN muscle spasticity 01/06/23 07/20/24 History naloxone 4 mg/actuation nasal 4 mg intranasal Q2M PRN opioid 06/16/24 07/20/24 Rx spray (Narcan) overdose #1 ea tramadol 50 mg tablet 50 mg PO BID PRN pain #60 tabs 07/19/24 07/20/24 Rx allopurinol 300 mg tablet 300 mg PO DAILY 07/20/24 07/20/24 History baclofen 20 mg tablet 20 mg PO QPM 07/20/24 07/20/24 History diazepam 10 mg tablet 10 mg PO TID PRN anxiety 07/20/24 07/20/24 History semaglutide 2 mg/dose (8 mg/3 mL) 2 mg subcut QWEEK 07/20/24 07/20/24 History subcutaneous pen injector (Ozempic) tadalafil 10 mg tablet 20 mg PO DAILY PRN sexual activity 07/20/24 07/20/24 History testosterone cypionate 200 mg/mL 200 mg IM Q14D 07/20/24 07/20/24 History intramuscular oil Allergies Allergy/AdvReac Type Severity Reaction Status Date / Time oxycodone AdvReac hyperactivi Verified 07/20/24 09:24 ty Exam Constitutional Documenting provider has reviewed patient's vital signs: yes Common normals: no apparent distress, oriented x3, healthy appearing, alert and well nourished General appearance: cooperative HENMT Common normals: normocephalic, hearing grossly normal bilaterally and moist oral mucous membranes Head and scalp: normocephalic Eye Common normals: PERRL Pupil: PERRL Neck & C-Spine Common normals: full ROM General: normal visual inspection Chest Common normals: inspection of chest normal Respiratory Common normals: normal respiratory effort, no retractions and no use of accessory muscles Back & Pelvis Lumbar spine/lower back: pain with ROM, paraspinal muscle tenderness and straight leg raise negative bilaterally Other: bilateral positive facet loading positive pain at L2-3 L3-4 no radiculopathy Extremity Common normals: normal to inspection and full ROM Right lower extremity: knee joint Left lower extremity: knee joint Other: bilateral knees enlarged diameter, mild crepitus, increased pain with medial and lateral stress testing, no instability Neuro Common normals: oriented x3, CN's II-XII intact bilaterally, moves all extremities, no focal motor deficits, no sensory deficits noted and deep tendon reflexes 2+ bilaterally Sensorium/orientation: alert Motor exam: strength 5/5 throughout and no movement abnormalities noted Psych Common normals: mental status grossly normal, thought process normal, cooperative, affect normal, speech normal and activity/motor behavior normal Speech: normal speech Thought process: normal thought process Results Additional Findings Additional findings: If on a controlled substance or opioids, I have checked an [place] report on this patient and there are no aberrancies noted in the prescribing history.??If on a controlled substance or opioid a drug screen was completed and reviewed within the last year, and if there has not been a drug screen completed we ordered one today to monitor higher risk, state monitored pain medication use. As part of providing excellent, safe, comprehensive care, the following was completed at our patient's visit: 1. A medication reconciliation and review to ensure accurate knowledge of current/active medications, including asking our patients to inform us about any onjx-uxc-kamuvtc medications or herbal remedies/nutritional supplements/alternative remedies. 2. A review to specifically ensure our patients have had annual screening for screening for depression, screening for tobacco use, and screening for unhealthy alcohol use. For concerning screenings had a discussion with the patient, provided patient education, and recommended follow-up with primary care provider when appropriate. If patient noted with a risk of falling, they received education on strength, gait, and balance training to prevent future risk of falling. Portions of this note may have been carried over from the previous visit and updated as appropriate. Please note this office utilizes paper charting in addition to the electronic medical record. A list of current medications, vitals, and PMH is available there as the clinical staff outside of myself do not have access to [employer] charting during the clinic day operations. As part of providing quality comprehensive care the current medications, vitals, and PMH were reviewed in the paper chart. Assessment and Plan Assessment and Plan (1) Lumbar spondylosis: (2) Bilateral primary osteoarthritis of knee: (3) Chronic, continuous use of opioids: Assessment and Plan: I feel these medications are improving the patient's quality of life and allow them to tolerate activities of daily living as well as participate in recreational activity.? The patient does not report intolerable side effects. The patient is NOT opioid naive and non-pharmacologic and non-opioid treatment has failed to significantly relieve the patient's pain and improve functionality. The patient has a diagnosis that is related to a somatic or visceral pain etiology. ? ?? I reviewed with the patient the potential risks and side effects with the use of? opioid medications including but not limited to respiratory depression,? sedation, and even . Within the last 12 months I have verified the patient has access to naloxone should? these effects occur. The patient was advised to let? their family know they had Naloxone in case they would need to administer? the medication. I advised the patient to avoid the use of any other? sedation substances including alcohol, THC, and benzodiazepines while? taking opioid medications due to the risk of compounding side effects and? detrimental outcomes. within the last 12 months I have reviewed the YOUTH LEADER, pain treatment agreement and urine drug screen.? ?? A drug screen was completed within the last year, and no aberrancies were noted regarding their use of controlled substances. The patient understands they are subject to the terms and conditions of the pain contract that they have signed. ? ?? I have checked an [place]ARRS report on this patient today and there are no aberrancies noted in the prescribing history.? (4) Back pain: Plan continue tramadol 50mg BID PRN moderate to severe pain, pt verbalized agreement to stop our medications while orthopedic team manages acute post op pain when cleared by ortho can restart diclofenac 50mg BID, risks vs benefits reviewed denies side effects continue gabapentin 300mg TID continue flexeril 10mg HS PRN pain/spasms f/u 3 months, sooner if needed
== END 2024-08-04 08:41 ==
LOC: PM 08:40
PROVIDERS: PCP Family Medicine; Visit Provider Nurse Practitioner
DX: M47.816 Spondylosis without myelopathy or radiculopathy, lumbar region (principal); M16.0 Bilateral primary osteoarthritis of hip; Z79.891 Long term (current) use of opiate analgesic; M54.50 Low back pain, unspecified
CPT/HCPCS: G0463

== ENCOUNTER 2024-08-05 09:28 | Outpatient (OUT) | payer BC, MEDICARE, SELFPAY ==
--- OUTSIDE RECORDS SUMMARY | 2024-08-05 09:44 | XMS_ITS | CCD ---
Author Organization [facility] Providers Care Core Winder Machine Operator Name Role Phone DominikRacheal ihnton Unavailable Ant Alejandra Unavailable BENTLEY MACK Attending [...] ., CECY BLACKMON Consulting Unavailable JENNIFER II, ALEJNADRA Consulting Unavailable TYLERYURI Consulting Unavailable KOTONIO POPE [...] ., DR FELISA Juarez Primary Care Unavailable BERRISO ., DR FELISA Juarez Attending Unavailable BERRIOS [...] ., DR FELISA Juarez Primary Care Unavailable [facility] [place] [place] Attending Unavailable [facility] [place] Admitting Unavailable [facility] [place] STEW[place] Consulting Unavailable WE[facility], DR RACHEAL [...] Unavailable WEST, DR RACHEAL Ayala Attending Unavailable BERRIOS, FELISA Juarez Primary Care Physician [phone] TULIO RUGGIERO Primary Care Physician [phone] Monik MCGUIRE, Tulio Unavailable Tulio Ruggiero MD Primary Care Provider [phone] TULIO RUGGIERO Attending Unavailable MONIK, TULIO Attending Unavailable TULIO RUGGIERO Attending Unavailable Erik ANNE, Daniele Kilgore Attending Unavailantonio Valencia DO, Daniele Kilgore Attending UnavailLIZ Ramey Attending Unavailable LIZ HERNANDEZ Attending Unavailable LIZ HERNANDEZ Attending Unavailable Allergies Allergy Classification Reported Allergen(s) Allergy Type Date of Onset Reaction(s) Facility (3 sources) Acetaminophen / oxyCODONE Drug Allergy Unknown [facility] Other (7 sources) Acetaminophen / oxyCODONE; Translations: [OXYCODONE-ACETAM INOPHEN] Drug Allergy 3 Itching, Rash [facility] Repository (11 sources) oxyCODONE; Translations: [OXYCODONE] Drug Allergy 3 Hyperactive behavior (finding) [facility] Repository (1 source) Acetaminophen / oxyCODONE Drug Allergy [facility] Repository (1 source) oxyCODONE; Translations: [OxyCODONE Hydrochloride] Drug Allergy [facility] Repository Medications Current Medications Medication Drug Class(es) Dates Sig (Normalized) Sig (Original) allopurinol 300 mg oral tablet (6 sources) Xanthine Oxidase Inhibitor allopurinol (Zyloprim) 300 MG tablet 1 (one) time each day at the same time. Active atorvastatin 20 mg oral tablet (12 sources) HMG-CoA Reductase Inhibitor Start: 04-25-2020 take 1 tablet by mouth at bedtime atorvastatin (Lipitor) 20 MG tablet Indications: Dyslipidemia (CMS/HCC) Take 1 tablet (20 mg) by mouth at bedtime 90 tablet 3 09/30/2023 Active Atorvastatin Rafael cium Active baclofen 10 mg oral tablet (10 sources) gamma-Aminobutyric Acid-ergic Agonist Start: 11-17-2020 take 1 tablet by mouth at bedtime baclofen 10 mg Tab 10 mg = 1 tab(s), Oral, Bedtime, Refills(s) 0, Muscle pain Start Date: 11/17/20 Status: Ordered take 1 tablet by mouth at bedtim e baclofen (Lioresal) 20 MG tablet Take 1 tablet by mouth at bedtime. 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) , Type 2 diabetes mellitus with hyperglycemia, without long-term current use of insulin (CMS/HCC) TAKE 1 TABLET BY MOUTH THREE TIMES A DAY NEEDED FOR GOUT 60 tablet 3 08/06/2023 Active Colchicine Activ e cyclobenzaprine hydrochloride 10 mg oral tablet (2 sources) Muscle Relaxant Start: 11-04-2023 cyclobenzaprin e 10 mg Tab Refills(s) 0 Start Date: 11/04/23 Status: Ordered diazePAM 10 mg oral tablet (6 sources) Benzodiazepine diazePAM (Valium ) 10 MG tablet Take by mouth every 8 (eight) hours if needed Active diclofenac sodium 50 mg delayed release oral tablet (10 sources) Nonsteroidal Anti-inflammatory Drug Start: 11-04-2023 diclofenac sodium 50 mg Oral EC Tab Refills(s) 0 Start Date: 11/04/23 Status: Ordered febuxostat 40 mg oral tablet (12 sources) Xanthine Oxidase Inhibitor Start: 04-25-2020 febuxostat (Uloric) 40 MG tablet Indications: Morbid obesity (CMS/HCC) , 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) , Type 2 diabetes mellitus with hyperglycemia, without long-term current use of insulin (CMS/HCC) TAKE 1 TABLET BY MOUTH EVERY DAY 90 tablet 3 08/06/2023 Active Febuxostat Activ e gabapentin 300 mg oral capsule (13 sources) Anti-epileptic Agent Start: 11-15-2020 End: 04-09-2024 take 1 capsule by mouth in the evening gabapentin (Neurontin) 300 MG capsule Indications: 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) TAKE 1 CAP BY MOUTH IN THE MORNING,1 CAP IN THE EVENING AND 1 CAP BEFORE BEDTIME 270 capsule 04/09/2024 Active Gabapentin Activ e lisinopril 5 mg oral tablet (12 sources) Angiotensin Converting Enzyme Inhibitor Start: 06-07-2024 lisinopril 5 MG tabl et Indications: Morbid obesity (CMS/HCC) , 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) , Type 2 diabetes mellitus with hyperglycemia, without long-term current use of insulin (CMS/HCC) TAKE 1 TABLET BY MOUTH EVERY DAY 90 tablet 3 06/07/2024 Active Start: 04-13-2019 lisinopril 5 M G tablet Indications: Morbid obesity (CMS/HCC) , 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) , Type 2 diabetes mellitus with hyperglycemia, without long-term current use of insulin (CMS/HCC) TAKE 1 TABLET BY MOUTH EVERY DAY 90 tablet 3 08/06/2023 Active Lisinopril Activ e 24 hr metFORMIN hydrochloride 500 mg extended release oral tablet (12 sources) Biguanide Start: 06-07-2024 metFORMIN XR ( Glucophage-XR) 500 MG 24 hr tablet Indications: Morbid obesity (CMS/HCC) , 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) , Type 2 diabetes mellitus with hyperglycemia, without long-term current use of insulin (CMS/HCC) TAKE 1 TABLET BY MOUTH EVERY DAY IN THE MORNING 90 tablet 3 06/07/2024 Active Start: 08-06-2023 metFORMIN XR ( Glucophage-XR) 500 MG 24 hr tablet Indications: Morbid obesity (CMS/HCC) , 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) , Type 2 diabetes mellitus with hyperglycemia, without long-term current use of insulin (CMS/HCC) TAKE 1 TABLET BY MOUTH EVERY DAY IN THE MORNING 90 tablet 3 08/06/2023 Active Start: 04-25-2020 take 1 tablet by debbie th once daily metformin 500 mg ER Tab [...] Ozempic Active probenecid 500 mg oral tablet (10 sources) Start: 07-15-2024 take 1 tablet by mouth once probenecid (Benemid) 500 MG tablet Indications: Arthritis, gouty Take 1 tablet (500 mg) by mouth every 12 (twelve) hours 60 tablet 3 07/15/2024 Active Start: 07-15-2024 take 1 tablet by mouth once pr obenecid (Benemid) 500 MG tablet Indications: Arthritis, gouty Take 1 tablet (500 mg) by mouth every 12 (twelve) hours 60 tablet 3 07/15/2024 Active End: 07-15-2024 probenecid (Benemid) 500 MG tablet every 12 (twelve) hours. 07/15/2024 Discontinued (Reorder) take 1 tablet by debbie th every twelve hours Probenecid 500 MG 1 tablet Orally Twice a day Active 0.25 mg, 0.5 mg dose 1.5 ml semaglutide 1.34 mg/ml pen injector (3 sources) Start: 04-24-2021 inject 0.5 mg by subcutaneous injection every week Ozempic 2 mg/1.5 mL (0.25 mg or 0.5 mg dose) subcutaneous solution 0.5 mg, SubCutaneous, qWeek, Refill(s) 0 Start Date: 04/24/21 Status: Ordered Semaglutide, 2 MG/DOSE, (Ozempic, 2 MG/DOSE,) 8 MG/3ML solution pen-injector (6 sources) Start: 08-26-2023 inject 2 mg by subcutaneous injection every week Semaglutide, 2 MG/DOSE, (Ozempic, 2 MG/DOSE,) 8 MG/3ML solution pen-injector Indications: Type 2 diabetes mellitus with hyperglycemia, without long-term current use of insulin ([facility]) Inject 2 mg under the skin 1 (one) time per week 9 mL 3 08/26/2023 Active Syringe/Needle, Disp, (B-D 3CC LUER-HERMINIO SYR 23GX1 ) 23G X 1 3 ML misc (6 sources) Start: 12-24-2023 Syringe/Needle, Disp, (B-D 3CC LUER-HERMINIO SYR 23GX1 ) 23G X 1 3 ML misc Indications: Male hypogonadism Inject 1 each into the shoulder, thigh, or buttocks every 14 (fourteen) days 50 each 11 12/24/2023 Active tadalafil 10 mg oral tablet (1 source) Phosphodiesterase 5 Inhibitor Start: 06-03-2023 tadalafil 10 mg Tab See Instructions, PRN for erectile dysfunction, 1-2 tab(s) po 60mins prior to sexual activity. do not exceed 20mg/24hrs, # 20 tab(s), Refills(s) 3, Pharmacy: [facility]/pharmacy #[id number], 188, cm, 06/03/23 10:01:00 EST, Height/Length Dosing, 138, kg, 06/03/23 10:01:00 EST, Weight Dosing Start Date: 06/03/23 Status: Ordered 1 ml testosterone cypionate 200 mg/ml injection (7 sources) Androgen Start: 12-24-2023 End: 04-06-2024 testosterone cypionate (Depo-Testosteron e) 200 MG/ML injection Indications: Male hypogonadism Inject 0.5 mL (100 mg) into the shoulder, thigh, or buttocks every 14 (fourteen) days 10 mL 2 04/07/2024 Active Testosterone Cypionate 200 mg/mL intramuscular solution (3 sources) Start: 06-03-2023 Testosterone Cypionate 200 mg/mL intramuscular solution Refills(s) 0 Start Date: 06/03/23 Status: Ordered tiZANidine 4 mg oral tablet (6 sources) Central alpha-2 Adrenergic Agonist take 1 tablet by mouth every six hours as needed tiZANidine (Zanaflex) 4 MG tablet Take 4 mg by mouth every 6 (six) hours if needed for muscle spasms Active traMADol hydrochloride 50 mg oral tablet (12 sources) Opioid Agonist Start: 06-03-2023 traMADOL 50 mg Tab Refills(s) 0 Start Date: 06/03/23 Status: Ordered traMADol HCl Act vitor traZODone hydrochloride 50 mg oral tablet (7 sources) Serotonin Reuptake Inhibitor Start: 06-24-2024 take 1 tablet by mouth at bedtime traZODone (Desyrel) 50 MG tablet Indications: Primary insomnia TAKE 1 TABLET BY MOUTH AT BEDTIME 30 tablet 3 06/24/2024 Active Start: 05-27-2024 take 50 mg by mouth once daily at bedtime trazodone 50 mg, Oral, Once a day (at bedtime), Refills(s) 0 Start Date: 05/27/24 Status: Ordered Start: 02-26-2024 take 1 tablet by debbie th at bedtime traZODone (Desyrel) 50 MG tablet Indications: Primary insomnia Take 1 tablet (50 mg) by mouth at bedtime 30 tablet 3 02/26/2024 Active Vitamin D3 (3 sources) Start: 04-25-2020 Vitamin [...] needed, # 2 tab(s), Refills(s) 0, Pharmacy: [facility]/pharmacy #[id number], 185.4, cm, 12/05/20 11:15:00 EDT, [...] kidney; Translations: [Kidney stone] Onset: 2 Episodic Cataract (12 sources) Bilateral age-related nuclear cataracts; Translations: [Age-related nuclear cataract, bilateral] Onset: 3 03-10-2023 Chronic Chronic ulcer of skin (5 sources) Non-pressure [...] Onset: 2 Chronic Disorders of lipid metabolism (11 sources) Mixed hyperlipidemia; Translations: [Pure hypercholesterolemia, unspecified] Onset: 3 Chronic Disorders of teeth and jaw (1 source) 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; Translations: [ADHESIONS AND ANKYLOSIS LEFT TMJ] Onset: 3 Episodic Essential hypertension (3 sources) Essential (primary) hypertension; Translations: [Essential (primary) hypertension] Onset: 3 Chronic Genitourinary symptoms and ill-defined conditions (3 sources) Nocturia 04-25-2020 Episodic Gout and other crystal arthropathies (13 sources) Gout, unspecified; Translations: [Gouty arthropathy] Onset: 2 Chronic Hepatitis (4 sources) Steatohepatitis; Translations: [Nonalcoholic steatohepatitis (HODGES)] Onset: 1 Resolved: 1 Chronic Hyperplasia of prostate (8 sources) Benign prostatic hypertrophy with outflow obstruction; Translations: [Benign prostatic hyperplasia with lower urinary tract symptoms] Onset: 3 Chronic Miscellaneous mental health disorders (6 sources) Primary insomnia; Translations: [Primary insomnia] Onset: 4 01-12-2024 Chronic Neoplasms of unspecified nature or uncertain behavior (3 sources) 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 11-30-2020 Episodic Osteoarthritis (17 sources) Arthritis of right knee; Translations: [Unilateral primary osteoarthritis, right knee] Onset: 2 Resolved: 2 Chronic Other aftercare (1 source) senior care (current) use of oral hypoglycemic drugs; Translations: [OFFICE COORDINATOR RECEPTIONIST USE ORAL HYPOGLYCEMIC DX] Onset: 3 Episodic Other aftercare (1 source) Other group home (current) drug therapy; Translations: [OTH CARE HOME CURRENT DRUG THERAPY] Onset: 3 Episodic Other [...] hypofunction] Onset: 3 Chronic Other endocrine disorders (10 sources) Male hypogonadism; Translations: [Testicular hypofunction] Onset: 3 06-03-2023 Chronic Other liver diseases (3 sources) Lesion of liver; Translations: [Liver disease, unspecified] Chronic Other liver diseases (1 source) Fatty (change of) liver, not elsewhere classified; Translations: [FATTY CHANGE LIVER NEC] Onset: 3 Chronic Other liver diseases (6 sources) Non-alcoholic fatty liver; Translations: [Fatty (change of) liver, not elsewhere classified] Onset: 3 06-26-2023 Chronic Other liver diseases (3 sources) Liver [...] Chronic Other nutritional; endocrine; and metabolic disorders (6 sources) Morbid obesity; Translations: [Morbid (severe) obesity due to excess calories] Onset: 3 04-13-2019 Chronic Other nutritional; endocrine; and metabolic disorders (5 sources) Severe obesity; Translations: [Class 2 severe obesity due to excess calories with serious comorbidity and body mass index (BMI) of 37.0 to 37.9 in adult ([facility])] Onset: 3 07-15-2024 Chronic Other screening for suspected conditions (not mental disorders or infectious disease) (6 sources) Encounter for screening for malignant neoplasm of prostate; Translations: [Screening for malignant neoplasm done] Onset: 3 Episodic Other skin disorders (1 source) Corns and callosities; Translations: [CORNS AND CALLOSITIES] Onset: 3 Episodic Other upper respiratory disease (6 sources) Allergic rhinitis due to pollen; Translations: [Allergic rhinitis due to pollen] Onset: 4 01-12-2024 Chronic Other upper respiratory infections (1 source) Acute upper respiratory infection, unspecified; Translations: [ACUTE UP RESPIRATORY INFECTION UNS] Onset: 3 Episodic Pulmonary heart disease (6 sources) Personal history of pulmonary embolism; Translations: [H/O: pulmonary embolus] Onset: 3 Episodic Residual codes; unclassified (1 source) Obstructive sleep apnea (adult) (pediatric); Translations: [OBSTRUCTIVE SLEEP APNEA] Onset: 3 Chronic Residual codes; unclassified (6 sources) Obstructive sleep apnea syndrome; Translations: [Obstructive sleep apnea (adult) (pediatric)] Onset: 3 06-26-2023 Chronic Residual codes; unclassified (1 source) Family history of cancer; Translations: [Family history of malignant neoplasm of prostate] Onset: 3 Episodic Residual codes; unclassified (3 sources) Family history of prostate cancer 06-03-2023 Episodic Skin and subcutaneous tissue infections (1 source) Cellulitis of left toe; Translations: [CELLULITIS OF LEFT TOE] Onset: 3 Episodic Spondylosis; intervertebral disc disorders; other back problems (13 sources) Spondylosis without myelopathy or radiculopathy, lumbar [...] Test Name Value Interpretation Reference Range Facility XR Knee Standing AP Bilatera nikko 07-27-2024 XR Knee Standing AP Bilateral EXAM: XR Knee Standing AP Bilateral HISTORY: Osteoarthritis knee, [employer] Protocol; Osteoarthritis knee. COMPARISON: None. FINDINGS/ IMPRESSION: Moderate to severe degeneration most pronounced in the medial compartment right greater than left. Final Dictated by: Hailey Mantilla DO Dictated DT/TM: 07/27/2024 11:01 am Signed by: Hailey Mantilla DO Signed (Electronic Signature): 07/27/2024 11:47 am Transcribed DT/TM: 07/27/2024 11:07 (If Report Is Signed, Electronically Signed in Other Vendor System) Normal [facility] MRI Knee Surg.Navigate or Pl an ONLY Lefton 07-23-2024 MRI Knee Surg.Navigate or Plan ONLY Left HISTORY: Arthritis of the left knee. Preoperative planning. MRI Knee Surg.Navigate or Plan ONLY Left: 07/23/2024 8:36 AM EST COMPARISON: Radiographs left knee 07/23/2024. TECHNIQUE: Sagittal T2 images of the left knee were obtained using a preoperative protocol. FINDINGS: There are severe degenerative changes of all 3 compartments of the knee. There is no significant joint effusion. The cruciate ligaments appear grossly intact. There is no significant De La Rosa's cyst. IMPRESSION: Severe tricompartmental osteoarthritis of the left knee. Final Dictated by: Willie Jsoeph MD Dictated DT/TM: 07/23/2024 9:46 am Signed by: Willie Joseph MD Signed (Electronic Signature): 07/23/2024 9:48 am (If Report Is Signed, Electronically Signed in Other Vendor System) Normal [facility] XR Knee 1 or 2 Views Lefton 07-23-2024 XR Knee 1 or 2 Views Left EXAM: Left knee HISTORY: . pain in left knee . COMPARISON: 06/10/2022 TECHNIQUE: 2 views FINDINGS: There is mild to moderate narrowing of the medial joint compartment. There is sclerosis of the medial tibial plateau. Small spurs are noted involving the knee joint as well as the patellofemoral joint. Surrounding soft tissues are unremarkable. There is a small suprapatellar effusion. IMPRESSION: 1. Mild to moderate arthritic changes of the left knee particularly the medial joint compartment. Findings have progressed since previous exam. 2. Small suprapatellar effusion. Final Dictated by: Racheal Morales MD Dictated DT/TM: 07/23/2024 10:11 am Signed by: Racheal Morales MD Signed (Electronic Signature): 07/23/2024 10:12 am (If Report Is Signed, Electronically Signed in Other Vendor System) Normal [facility] ALL CBC WITH AUTO DIFFon BASOPHILS ABSOLUTE AUTO 0.1 [facility] Basophils/100 WBC (Bld) 0.9 % 0.2 - 2.0 % [facility] Eosinophils/100 WBC (Bld) 4.9 % 0.9 - 7.0 % [facility] Erythrocyte distribution width (RBC) [Ratio] 13.7 % 11.0 - 15.0 % [facility] Hematocrit (Bld) [Volume fraction] 44.7 % 42.0 - 54.0 % [facility] Hemoglobin (Bld) [Mass/Vol] 14.9 g/dL 14.0 - 18.0 g/dL [facility] IMMATURE GRANULOCYTES ABS AUTO 0.02 [facility] Immature granulocytes/100 WBC (Bld) 0.3 % 0.0 - 0.5 % [facility] Interpretation and review of laboratory results Abnormal [facility] LYMPHOCYTES ABSOLUTE AUTO 1.5 [facility] Lymphocytes/100 WBC (Bld) 23 % 20.5 - 60.0 % [facility] MCH (RBC) [Entitic mass] 32.3 pg 25.9 - 34.0 pg [facility] MCHC (RBC) [Mass/Vol] 33.3 g/dL 29.9 - 35.2 g/dL [facility] MCV (RBC) [Entitic vol] 97 fL High 80.0 - 94.0 fL [facility] MONOCYTES ABSOLUTE AUTO 0.5 [facility] Monocytes/100 WBC (Bld) 7.9 % 1.7 - 12.0 % [facility] NEUTROPHILS ABSOLUTE AUTO 4.1 [facility] Neutrophils/100 WBC (Bld) 63 % 43.0 - 75.0 % [facility] Platelet mean volume (Bld) [Entitic vol] 8.8 fL Low 9.5 - 13.5 fL [facility] TBH EO # 0.3 [facility] TBH PLT 226 [facility] TB RBC 4.61 Low [facility] TB WBC 6.6 [facility] TB UA (CLEAN/CATCH) CLINIC PHYSICIAN DIRECTOR/AMBROSE RO IF IND.on 07-20-2024 BILIRUBIN URINE Negative NEGATIVE [facility] BLOOD URINE Negative NEGATIVE [facility] Clarity (U) CLEAR CLEAR [facility] Color (U) LT. YELLOW YELLOW [facility] GLUCOSE URINE UA Negative NEGATIVE mg/dL [facility] Ketones Ql (U) Negative NEGATIVE mg/dL [facility] Leukocyte esterase Test strip Ql (U) Negative NEGATIVE [facility] NITRITE URINE Negative NEGATIVE [facility] pH (U) 6.0 [pH] 5.0 - 9.0 [facility] PROTEIN URINE Negative NEG/TRACE mg/dL [facility] SPECIFIC GRAVITY URINE 1.025 1.005 - 1.025 [facility] URINE MICROSCOPIC INDICATED NO [facility] UROBILINOGEN URINE 0.2 EU/dL 0.2 - 1.0 EU/dL [facility] Reminderson 06-15-2024 Reminders Reminders From: Cyndi Montano To: EU - Administrative; Sent: 06/04/2024 12:06:06 EST Show up: 06/04/2024 12:05:00 EST Subject: Ambulatory Reminder Due Date/Time: 05/28/2025 12:05:00 EST Reminder/Recall Patient needs scheduled for a 1 yr f/u, PCP to check PSA. Due back in 06/07 LVM to call and schedule Normal [facility] Urology Office/Clinic Noteon 05-27-2024 Urology Office/Clinic Note Urology Office/Clinic Note Chief Complaint 5mo f/u HPI Staff 68 year old male here for 5 month with KUB. Pt unable to provide urine sample today, [facility] Denies any problems today. Previous DX: increased [...] E&M of Est. Patient Moderate 30-39 Min 01258 Influenza immunization status assessed 1030F Medication list [...] E&M of Est. Patient Moderate 30-39 Min 07629 3. Hypogonadism male (E29.1: Testicular hypofunction) Managed by PCP. On T injections. Ordered: Complex E&M Add on G2211 E&M of Est. Patient Moderate 30-39 Min 23267 4. ED (erectile dysfunction) (N52.9: Male erectile dysfunction, unspecified) Failed Tadalafil. A lot of neuropathy. Not interested in additional tx. Ordered: Complex E&M Add on G2211 E&M of Est. Patient Moderate 30-39 Min 50276 Follow-up With When Contact Information LIZ HERNANDEZ PA-C, URL Within 1 year Additional Instructions: Patient Education Kidney Stones, [id number] Problem List/Past Medical History Ongoing Abnormal abdominal [...] urinary obstructio (more content not included)... Normal [facility] Comment on above: Result Comment: Elec tronically Signed By: LIZ HERNANDEZ PA-C.clau\Date and Time Signed: 05/27/24 09:57 EST [place] 11-05-2023 Screens [id number]. 00TIFF Normal [facility] Screens [id number]. 00TIFF Normal [facility] Patient Educationon 11-04-19 Patient Education Urology Erectile [...] these instructions at home: Medicines ? Take [id number]-ffifucs and prescription medicines only as told by [...] include cig (more content not included)... Normal [facility] Urology Office/Clinic Noteon 11-04-2023 Urology Office/Clinic Note [...] E&M of Est. Patient Moderate 30-39 Min 70354 3. Kidney calculi (N20.0: Calculus of kidney) [...] E&M of Est. Patient Moderate 30-39 Min 48291 XR Abdomen 1 View 4. BPH with [...] E&M of Est. Patient Moderate 30-39 Min 36226 Influenza immunization status assessed 1030F Medication list [...] E&M of Est. Patient Moderate 30-39 Min 17087 Follow-up With When Contact Information LIZ HERNANDEZ PA-C, URL [address] [place] [id number] [phone] Additional Instructions: 6 mos w/ KUB Patient [...] cancer in father History of pulmonary embolism [place] (more content not included)... Normal [facility] Comment on above: Result Comment: Elec tronically Signed By: LIZ HERNANDEZ PA-C\.br\Date and Time Signed: 11/04/23 10:26 EDT\.br\Electronically Co-Signed By: Maru Burr\.clau\Date and Time Co-Signed: 11/04/23 09:31 EDT Lab Reportson 10-27-2023 Lab Reports [id number] 0TIFF Normal [facility] XR LSPINE W_OBLS AND FLEX_EX Ton 12-05-2022 [...] RACHEAL GRAVES Date: 2022-12-05 09:46 Normal [facility] CBC AUTO DIFFon 10-21-2022 BASO # 0.1 103/ul Normal 0.0-0.1 [facility] Comment on above: Performed By: #### P OCGLUC #### [facility] [address] [place] [address] Dr. Juliet García Basophils/100 WBC (Bld) 0.7 % Normal 0.2-2.0 [facility] Comment on above: Performed By: #### P OCGLUC #### [facility] [address] [address] [address] Juliet García EO # 0.4 103/ul Normal 0.0-0.7 [facility] Comment on above: Performed By: #### P OCGLUC #### [facility] [address] [address] [address] Juliet García Eosinophils/100 WBC (Bld) 5.3 % Normal 0.9-7.0 [facility] Comment on above: Performed By: #### P OCGLUC #### [facility] [address] [address] [address] Juliet García Erythrocyte distribution width (RBC) [Ratio] 14.0 % Normal 11.0-15.0 [facility] Comment on above: Performed By: #### P OCGLUC #### [facility] [address] [place] [address] Dr. Juliet García Hematocrit (Bld) [Volume fraction] 43.6 % Normal 42.0-54.0 [facility] Comment on above: Performed By: #### P OCGLUC #### [facility] [address] [place] [address] Dr. Juliet García Hemoglobin (Bld) [Mass/Vol] 14.9 g/dL Normal 14.0-18.0 [facility] Comment on above: Performed By: #### P OCGLUC #### [facility] [address] [place] [address] Dr. Juliet García IG # 0.03 10e3/ul Normal 0.00-0.03 [facility] Comment on above: Performed By: #### P OCGLUC #### [facility] [address] [place] [address] Dr. Juliet García IG % 0.4 % Normal 0.0-0.5 [facility] Comment on above: Performed By: #### P OCGLUC #### [facility] [address] [place] [address] Dr. Juliet García LYMPH # 2.0 103/ul Normal 1.2-3.8 [facility] Comment on above: Performed By: #### P OCGLUC #### [facility] [address] [place] [address] Dr. Juliet García Lymphocytes/100 WBC (Bld) 29.3 % Normal 20.5-60.0 [facility] Comment on above: Performed By: #### P OCGLUC #### [facility] [address] [place] [address] Dr. Juliet García MANUAL DIFF REQ NO Normal [facility] Comment on above: Performed By: #### P OCGLUC #### [facility] [address] [place] [address] Dr. Juliet García MCH (RBC) [Entitic mass] 33.4 pg Normal 25.9-34.0 [facility] Comment on above: Performed By: #### P OCGLUC #### [facility] [address] [place] [address] Dr. Juliet García MCHC (RBC) [Mass/Vol] 34.2 g/dL Normal 29.9-35.2 [facility] Comment on above: Performed By: #### P OCGLUC #### [facility] [address] [place] [address] Dr. Juliet García MCV (RBC) [Entitic vol] 97.8 fL Critically high 80.0-94.0 [facility] Comment on above: Performed By: #### P OCGLUC #### [facility] [address] [place] [address] Dr. Juliet García MONO # 0.7 103/ul Normal 0.3-0.8 [facility] Comment on above: Performed By: #### P OCGLUC #### [facility] [address] [place] [address] Dr. Juliet García Monocytes/100 WBC (Bld) 9.9 % Normal 1.7-12.0 [facility] Comment on above: Performed By: #### P OCGLUC #### [facility] [address] [place] [address] Dr. Juliet García NEUT # 3.7 103/ul Normal 1.4-6.5 [facility] Comment on above: Performed By: #### P OCGLUC #### [facility] [address] [place] [address] Dr. Juliet García Neutrophils/100 WBC (Bld) 54.4 % Normal 43.0-75.0 [facility] Comment on above: Performed By: #### P OCGLUC #### [facility] [address] [place] [address] Dr. Juliet García Platelet mean volume (Bld) [Entitic vol] 9.0 fL Critically low 9.5-13.5 [facility] Comment on above: Performed By: #### P OCGLUC #### [facility] [address] [place] [address] Dr. Juliet García PLT 211 103/ul Normal 150-450 [facility] Comment on above: Performed By: #### P OCGLUC #### [facility] [address] [place] [address] Dr. Juliet García RBC 4.46 106/ul Critically low 4.70-6.10 [facility] Comment on above: Performed By: #### P OCGLUC #### [facility] [address] [place] [address] Dr. Juliet García WBC 6.8 103/ul Normal 4.0-11.0 [facility] Comment on above: Performed By: #### P OCGLUC #### [facility] [address] [place] [address] Dr. Jluiet García POINT OF CARE GLUCOSEon 10-12 Glucose [Mass/Vol] 100 mg/dL Normal 74-106 [facility] Comment on above: Performed By: #### P OCGLUC #### [facility] [address] [place] [address] Dr. Juliet García Glucose [Mass/Vol] 94 mg/dL Normal 74-106 [facility] Comment on above: Performed By: #### A 1C #### [facility] [address] [place] [address] Dr. Juliet García PROF CHEM 8 (BAS METB)on Anion gap [Moles/Vol] 14.0 mmol/L Normal [facility] Comment on above: Performed By: #### B MP #### [facility] [address] [place] [address] Dr. Juliet García Calcium [Mass/Vol] 9.0 mg/dL Normal 8.5-10.1 [facility] Comment on above: Performed By: #### B MP #### [facility] [address] [place] [address] Dr. Juliet García Chloride [Moles/Vol] 107 mmol/L Normal 98-107 [facility] Comment on above: Performed By: #### B MP #### [facility] [address] [place] [address] Dr. Juliet García CO2 [Moles/Vol] 28.7 mmol/L Normal 21.0-32.0 [facility] Comment on above: Performed By: #### B MP #### [facility] [address] [address] [address] Juliet García Creatinine [Mass/Vol] 1.41 mg/dL Critically high 0.70-1.30 [facility] Comment on above: Performed By: #### B MP #### [facility] [address] [address] [address] Juliet García EGFR-AF ITALIAN >60 Normal >=60 [facility] Comment on above: Performed By: #### B MP #### [facility] [address] [address] [address] Juliet García EGFR-NON AF ITALIAN 50 mL/min/1.73m2 Critically low >=60 [facility] Comment on above: Performed By: #### B MP #### [facility] [address] [address] [address] Juliet García Glucose [Mass/Vol] 95 mg/dL Normal 74-106 [facility] Comment on above: Performed By: #### B MP #### [facility] [address] [address] [address] Juliet García Potassium [Moles/Vol] 4.7 mmol/L Normal 3.5-5.1 [facility] Comment on above: Performed By: #### B MP #### [facility] [address] [address] [address] Juliet Gacría Sodium [Moles/Vol] 145 mmol/L Normal 136-145 [facility] Comment on above: Performed By: #### B MP #### [facility] [address] [address] [address] Juliet García Urea nitrogen [Mass/Vol] 25.0 mg/dL Critically high 7.0-18.0 [facility] Comment on above: Performed By: #### B MP #### [facility] [address] [address] [address] Juliet García Urea nitrogen/Creatinine [Mass ratio] 17.7 mg/mg Normal [facility] Comment on above: Performed By: #### B MP #### [facility] [address] [place], [place] [address] Dr. Juliet García Office Visiton 07-31-2022 Follow-up visit [id number] Carlos Locke 1955 M Date Provider Department Center 07/31/2022 BENTLEY MENDOZA CARD [facility] Family History Problem Relation Age of Onset Stroke Father Family Status - Relation Status Age at Father Level of Service:70941 [place] OFFICE/OUTPATIENT ESTABLISHED MOD MDM 30-39 MIN Reason for Visit and Comments: Hyperlipidemia [182] Hypertension [113017] history of PE [Other] Normal [facility] CULTURE WOUNDon 07-24-2022 CULTURE WOUND Culture Observations : No growth of anaerobes at 72 hours. Isolate 1 Stenotrophomonas maltophilia Moderate growth of ORGANISM 1 Stenotrophomonas maltophilia ANTIBIOTIC M.I.C RX STATUS Levofloxacin 1 S F Trimethoprim/Sulfameth oxazole <=20 S F Normal [facility] Comment on above: Performed By: #### W OUNDCX ####[facility] [id number] [place], [place] [id number]. Juliet García GLYCOHEMOGLOBIN A1Con 2022 ADA RECOMMENDATION SEE BELOW Normal [facility] Comment on above: Result Comment: ADA RECOMMENDED LIMIT 4.0 - 6.0 ADA THERAPEUTIC TARGET < 7.0 ACTION SUGGESTED > 7.0 Performed By: #### A 1C #### [facility] [id number] Juliet García Glucose [Mass/Vol] 111 mg/dL Normal [facility] Comment on above: Performed By: #### A 1C #### [facility] [address] [place], [place] [address] Dr. Juliet García HbA1c (Bld) [Mass fraction] 5.5 % Normal 4.5-6.2 [facility] Comment on above: Performed By: #### A 1C #### [facility] [address] [place], [place] [address] Dr. Juliet García ECHOCARDIO M/2D COMPLETEon 1 08-29-2021 ECHOCARDIO M/2D COMPLETE Patient: CARLOS LOCKE Exam Date: 06/28/2022 : 1955 Gender:M Ordering : DR LOLY BARNARD M.D. Admission #: [id number] Family : Order #: [id number] CLICK HERE TO VIEW EXAM ECHOCARDIOGRAM REPORT [...] Mcmanus M.D. on 07/04/2022 at 13:38 Normal [facility] URIC ACID SERUMon 06-10-2022 Urate [Mass/Vol] 6.9 mg/dL Normal 3.5-7.2 [facility] Comment on above: Performed By: #### A 1C #### [facility] [address] [place] [address] Dr. Juliet García XR KUB 1 VIEWon [...] RACHEAL GRAVES Date: 2022-05-28 07:31 Normal [facility] CBC AUTO DIFFon 05-03-2022 BASO # 0.1 103/ul Normal 0.0-0.1 [facility] Comment on above: Performed By: #### C BC #### [facility] [address] [place] [address] Dr. Juliet García Basophils/100 WBC (Bld) 0.9 % Normal 0.2-2.0 [facility] Comment on above: Performed By: #### C BC #### [facility] [address] [place] [address] Dr. Juliet García EO # 0.4 103/ul Normal 0.0-0.7 [facility] Comment on above: Performed By: #### C BC #### [facility] [address] [place] [address] Dr. Juliet García Eosinophils/100 WBC (Bld) 5.2 % Normal 0.9-7.0 [facility] Comment on above: Performed By: #### C BC #### [facility] [address] [place] [address] Dr. Juliet García Erythrocyte distribution width (RBC) [Ratio] 13.6 % Normal 11.0-15.0 [facility] Comment on above: Performed By: #### C BC #### [facility] [address] [place] [address] Dr. Juliet García Hematocrit (Bld) [Volume fraction] 40.5 % Critically low 42.0-54.0 [facility] Comment on above: Performed By: #### C BC #### [facility] [address] [place] [address] Dr. Juliet García Hemoglobin (Bld) [Mass/Vol] 13.7 g/dL Critically low 14.0-18.0 [facility] Comment on above: Performed By: #### C BC #### [facility] [address] [place] [address] Dr. Juliet García IG # 0.02 10e3/ul Normal 0.00-0.03 [facility] Comment on above: Performed By: #### C BC #### [facility] [address] [place] [address] Dr. Juliet García IG % 0.3 % Normal 0.0-0.5 [facility] Comment on above: Performed By: #### C BC #### [facility] [address] [address] [address] Juliet García LYMPH # 1.9 103/ul Normal 1.2-3.8 [facility] Comment on above: Performed By: #### C BC #### [facility] [address] [address] [address] Juliet García Lymphocytes/100 WBC (Bld) 27.7 % Normal 20.5-60.0 [facility] Comment on above: Performed By: #### C BC #### [facility] [address] [place] [address] Dr. Juliet García MANUAL DIFF REQ NO Normal [facility] Comment on above: Performed By: #### C BC #### [facility] [address] [place] [address] Dr. Juliet García MCH (RBC) [Entitic mass] 33.3 pg Normal 25.9-34.0 [facility] Comment on above: Performed By: #### C BC #### [facility] [address] [place] [address] Dr. Juliet García MCHC (RBC) [Mass/Vol] 33.8 g/dL Normal 29.9-35.2 [facility] Comment on above: Performed By: #### C BC #### [facility] [address] [place] [address] Dr. Juliet García MCV (RBC) [Entitic vol] 98.3 fL Critically high 80.0-94.0 [facility] Comment on above: Performed By: #### C BC #### [facility] [address] [place] [address] Dr. Juliet García MONO # 0.7 103/ul Normal 0.3-0.8 [facility] Comment on above: Performed By: #### C BC #### [facility] [address] [place] [address] Dr. Juliet García Monocytes/100 WBC (Bld) 9.9 % Normal 1.7-12.0 [facility] Comment on above: Performed By: #### C BC #### [facility] [address] [address] [address] Juliet García NEUT # 3.8 103/ul Normal 1.4-6.5 [facility] Comment on above: Performed By: #### C BC #### [facility] [address] [address] [address] Juliet García Neutrophils/100 WBC (Bld) 56.0 % Normal 43.0-75.0 [facility] Comment on above: Performed By: #### C BC #### [facility] [address] [address] [address] Juliet García Platelet mean volume (Bld) [Entitic vol] 9.0 fL Critically low 9.5-13.5 [facility] Comment on above: Performed By: #### C BC #### [facility] [address] [address] [address] Juliet García PLT 201 103/ul Normal 150-450 [facility] Comment on above: Performed By: #### C BC #### [facility] [address] [address] [address] Juliet García RBC 4.12 106/ul Critically low 4.70-6.10 [facility] Comment on above: Performed By: #### C BC #### [facility] [address] [address] [address] Juliet García WBC 6.7 103/ul Normal 4.0-11.0 [facility] Comment on above: Performed By: #### C BC #### [facility] [address] [address] [address] Juliet García GLYCOHEMOGLOBIN A1Con 2021 ADA RECOMMENDATION SEE BELOW Normal [facility] Comment on above: Result Comment: ADA RECOMMENDED LIMIT 4.0 - 6.0 ADA THERAPEUTIC TARGET < 7.0 ACTION SUGGESTED > 7.0 Performed By: #### A 1C #### [facility] [address] [address] [address] Juliet García Glucose [Mass/Vol] 108 mg/dL Normal [facility] Comment on above: Performed By: #### A 1C #### [facility] [address] [address] [address] Juliet García HbA1c (Bld) [Mass fraction] 5.4 % Normal 4.5-6.2 [facility] Comment on above: Performed By: #### A 1C #### [facility] [address] [address] [address] Juliet García LIPID PROFILEon 05-03-2022 CHOL-HDL RATIO NORM SEE BELOW Normal [facility] Comment on above: Result Comment: 3.3 - 4.4 LOW RISK 4.4 - 7.1 AVERAGE RISK 7.1 - 11.0 MODERATE RISK >11.0 HIGH RISK Performed By: #### L IPID, CMP #### [facility] [address] [address] [address] Juliet García Cholesterol [Mass/Vol] 154 mg/dL Normal <=200 [facility] Comment on above: Performed By: #### L IPID, CMP #### [facility] [address] [address] [address] Juliet García Cholesterol in HDL [Mass/Vol] 29 mg/dL Critically low 40-60 [facility] Comment on above: Performed By: #### L IPID, CMP #### [facility] [address] [address] [address] Juliet García Cholesterol in LDL [Mass/Vol] 64.2 mg/dL Normal [facility] Comment on above: Performed By: #### L IPID, CMP #### [facility] [address] [address] [address] Juliet García Cholesterol.total/Ch olesterol in HDL [Mass ratio] 5.3 {ratio} Normal [facility] Comment on above: Performed By: #### L IPID, CMP #### [facility] [address] [address] [address] Juliet García HDL NORMAL > or = 60 mg/dl - LO W CARDIOVASCULAR RISK <40 mg/dl - HIGH CARDIOVASCULAR RISK Normal [facility] Comment on above: Performed By: #### L IPID, CMP #### [facility] [address] [place] [address] Dr. Juliet García LDL CALC NORMAL SEE BELOW Normal [facility] Comment on above: Result Comment: <100 mg/dl OPTIMAL 100 - 129 mg/dl NEAR OR ABOVE OPTIMAL 130 - 159 mg/dl BORDERLINE HIGH 160 - 189 mg/dl HIGH >190 mg/dl VERY HIGH Performed By: #### L IPID, CMP #### [facility] [address] [address] [address] Juliet García Triglyceride [Mass/Vol] 304 mg/dL Critically high <=150 [facility] Comment on above: Performed By: #### L IPID, CMP #### [facility] [address] [place] [address] Dr. Juliet García VLDL CALC 60.8 mg/dL Normal [facility] Comment on above: Performed By: #### L IPID, CMP #### [facility] [address] [place] [address] Dr. Juliet García PROF 14(COMP METB)on 022 Albumin [Mass/Vol] 3.7 g/dL Normal 3.4-5.0 [facility] Comment on above: Performed By: #### L IPID, CMP #### [facility] [address] [place] [address] Dr. Juliet García Albumin/Globulin [Mass ratio] 1.1 {ratio} Normal [facility] Comment on above: Performed By: #### L IPID, CMP #### [facility] [address] [place] [address] Dr. Juliet García ALP [Catalytic activity/Vol] 87 U/L Normal 46-116 [facility] Comment on above: Performed By: #### L IPID, CMP #### [facility] [address] [place] [address] Dr. Juliet García ALT [Catalytic activity/Vol] 52 U/L Normal 16-63 [facility] Comment on above: Performed By: #### L IPID, CMP #### [facility] [address] [place] [address] Dr. Juliet García Anion gap [Moles/Vol] 11.5 mmol/L Normal [facility] Comment on above: Performed By: #### L IPID, CMP #### [facility] [address] [place] [address] Dr. Juliet García AST [Catalytic activity/Vol] 27 U/L Normal 15-37 [facility] Comment on above: Performed By: #### L IPID, CMP #### [facility] [address] [place] [address] Dr. Juliet García Bilirubin [Mass/Vol] 0.4 mg/dL Normal 0.2-1.0 [facility] Comment on above: Performed By: #### L IPID, CMP #### [facility] [address] [place] [address] Dr. Juliet García Calcium [Mass/Vol] 8.7 mg/dL Normal 8.5-10.1 [facility] Comment on above: Performed By: #### L IPID, CMP #### [facility] [address] [place] [address] Dr. Juliet García Chloride [Moles/Vol] 106 mmol/L Normal 98-107 [facility] Comment on above: Performed By: #### L IPID, CMP #### [facility] [address] [place] [address] Dr. Juliet García CO2 [Moles/Vol] 28.2 mmol/L Normal 21.0-32.0 [facility] Comment on above: Performed By: #### L IPID, CMP #### [facility] [address] [place] [address] Dr. Juliet García Creatinine [Mass/Vol] 1.21 mg/dL Normal 0.70-1.30 [facility] Comment on above: Performed By: #### L IPID, CMP #### [facility] [address] [place] [address] Dr. Juliet García EGFR-AF ITALIAN >60 Normal >=60 [facility] Comment on above: Performed By: #### L IPID, CMP #### [facility] [address] [place] [address] Dr. Juliet García EGFR-NON AF ITALIAN =60 Normal >=60 [facility] Comment on above: Performed By: #### L IPID, CMP #### [facility] [address] [place] [address] Dr. Juliet García Globulin (S) [Mass/Vol] 3.4 g/dL Normal [facility] Comment on above: Performed By: #### L IPID, CMP #### [facility] [address] [place] [address] Dr. Juliet García Glucose [Mass/Vol] 100 mg/dL Normal 74-106 [facility] Comment on above: Performed By: #### L IPID, CMP #### [facility] [address] [place] [address] Dr. Juliet García Potassium [Moles/Vol] 4.7 mmol/L Normal 3.5-5.1 [facility] Comment on above: Performed By: #### L IPID, CMP #### [facility] [address] [place] [address] Dr. Juliet García Protein [Mass/Vol] 7.1 g/dL Normal 6.4-8.2 [facility] Comment on above: Performed By: #### L IPID, CMP #### [facility] [address] [place] [address] Dr. Juliet García Sodium [Moles/Vol] 141 mmol/L Normal 136-145 [facility] Comment on above: Performed By: #### L IPID, CMP #### [facility] [address] [place] [address] Dr. Juliet García Urea nitrogen [Mass/Vol] 23.0 mg/dL Critically high 7.0-18.0 [facility] Comment on above: Performed By: #### L IPID, CMP #### [facility] [address] [place] [address] Dr. Juliet García Urea nitrogen/Creatinine [Mass ratio] 19.0 mg/mg Normal [facility] Comment on above: Performed By: #### L IPID, CMP #### [facility] [address] [place] [address] Dr. Juliet García VC CONSULT FOLLOWUPon 2021 VC CONSULT FOLLOWUP Patient: CARLOS LOCKE Exam Date: 04/08/2022 : 1955 Gender:M Ordering : DR RACHEAL GRAVES M.D. Admission #: [id number] Family : Order #: [id number] CLICK HERE [...] Racheal Graves MD on 04/08/2022 at 11:30 [facility] VC EXT VENOUS RT LIMITEDon 0 04-08-2022 VC EXT VENOUS RT LIMITED Patient: CARLOS LOCKE Exam Date: 04/08/2022 : 1955 Gender:M Ordering : DR RACHEAL GRAVES M.D. Admission #: [id number] Family : Order #: [id number] CLICK HERE TO VIEW EXAM RADIOLOGY REPORT [...] Graves MD on 04/08/2022 at 11:31 Normal [facility] VC INJ FOAM SCLERO W US MLTI on 04-03-2022 VC INJ FOAM SCLERO W US MLTI Patient: CARLOS LOCKE Exam Date: 04/03/2022 : 1955 Gender:M Ordering : DR RACHEAL GRAVES M.D. Admission #: [id number] Family : DR NATHALY BOONE . Order #: [id number] CLICK HERE TO VIEW EXAM RADIOLOGY REPORT [...] av (more content not included)... Normal [facility] VC CONSULT FOLLOWUPon 2021 VC CONSULT FOLLOWUP Patient: CARLOS LOCKE Exam Date: 03/25/2022 : 1955 Gender:M Ordering : DR RACHEAL GRAVES M.D. Admission #: [id number] Family : Order #: [id number] CLICK HERE TO VIEW EXAM RADIOLOGY REPORT [...] Kenny M.D. on 03/25/2022 at 08:41 Normal [facility] VC EXT VENOUS RT LIMITEDon 0 03-25-2022 VC EXT VENOUS RT LIMITED Patient: CARLOS LOCKE Exam Date: 03/25/2022 : 1955 Gender:M Ordering : DR RACHEAL GRAVES M.D. Admission #: [id number] Family : Order #: [id number] CLICK HERE TO VIEW EXAM RADIOLOGY REPORT [...] Kenny M.D. on 03/25/2022 at 08:39 Normal [facility] VC ENDOVENOUS ABL 1ST V RTon 03-19-2022 VC ENDOVENOUS ABL 1ST V RT Patient: CARLOS LOCKE Exam Date: 03/19/2022 : 1955 Gender:M Ordering : DR RACHEAL GRAVES M.D. Admission #: [id number] Family : Order #: [id number] CLICK HERE TO VIEW EXAM RADIOLOGY REPORT [...] Graves MD on 03/19/2022 at 08:58 Normal [facility] VC CONSULT FOLLOWUPon 2021 VC CONSULT FOLLOWUP Patient: CARLOS LOCKE Exam Date: 02/18/2022 : 1955 Gender:M Ordering : DR RACHEAL GRAVES M.D. Admission #: [id number] Family : Order #: [id number] CLICK HERE TO VIEW EXAM RADIOLOGY REPORT [...] Graves MD on 02/18/2022 at 09:45 Normal [facility] VC EXT VENOUS LT LIMITEDon 0 02-18-2022 VC EXT VENOUS LT LIMITED Patient: CARLOS LOCKE Exam Date: 02/18/2022 : 1955 Gender:M Ordering : DR RACHEAL GRAVES M.D. Admission #: [id number] Family : Order #: [id number] CLICK HERE TO VIEW EXAM RADIOLOGY REPORT [...] varicose veins remain off of SSV and occ med physician mid posterior calf. *Exam performed in accordance with [facility] practice guidelines- Peripheral venous ultrasound, October 07, 2009. 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 Admission #: [id number] Family : Order #: [id number] CLICK HERE TO VIEW EXAM RADIOLOGY REPORT [...] Elin Kenny M.D. on 02/13/2022 at 10:15 [facility] VC CONSULT FOLLOWUPon 2021 VC CONSULT FOLLOWUP Patient: CARLOS LOCKE Exam Date: 02/06/2022 : 1955 Gender:M Ordering : DR RACHEAL GRAVES M.D. Admission #: [id number] Family : Order #: [id number] CLICK HERE TO VIEW EXAM RADIOLOGY REPORT [...] Kenny M.D. on 02/06/2022 at 09:53 Normal [facility] VC EXT VENOUS LT LIMITEDon 0 02-06-2022 VC EXT VENOUS LT LIMITED Patient: CARLOS LOCKE Exam Date: 02/06/2022 : 1955 Gender:M Ordering : DR RACHEAL GRAVES M.D. Admission #: [id number] Family : Order #: [id number] CLICK HERE TO VIEW EXAM RADIOLOGY REPORT [...] Kenny M.D. on 02/06/2022 at 09:49 Normal [facility] GLYCOHEMOGLOBIN A1Con 2021 ADA RECOMMENDATION SEE BELOW Normal [facility] Comment on above: Result Comment: ADA RECOMMENDED LIMIT 4.0 - 6.0 ADA THERAPEUTIC TARGET < 7.0 ACTION SUGGESTED > 7.0 Performed By: #### A 1C #### [facility] [address] [address] [address] Juliet García Glucose [Mass/Vol] 108 mg/dL Normal [facility] Comment on above: Performed By: #### A 1C #### [facility] [address] [address] [address] Juliet García HbA1c (Bld) [Mass fraction] 5.4 % Normal 4.5-6.2 [facility] Comment on above: Performed By: #### A 1C #### [facility] [address] [address] [address] Juliet García PROF 14(COMP METB)on 022 Albumin [Mass/Vol] 4.0 g/dL Normal 3.4-5.0 [facility] Comment on above: Performed By: #### C MP ####[facility] [address] [id number]. Juliet García Albumin/Globulin [Mass ratio] 1.2 {ratio} Normal [facility] Comment on above: Performed By: #### C MP ####[facility] [address] [id number]. Juliet García ALP [Catalytic activity/Vol] 89 U/L Normal 46-116 [facility] Comment on above: Performed By: #### C MP ####[facility] [address] [id number]. Juliet García ALT [Catalytic activity/Vol] 81 U/L Critically high 16-63 [facility] Comment on above: Performed By: #### C MP ####[facility] [address] [id number]. Juliet García Anion gap [Moles/Vol] 13.6 mmol/L Normal [facility] Comment on above: Performed By: #### C MP ####[facility] [address] [id number]. Juliet García AST [Catalytic activity/Vol] 32 U/L Normal 15-37 [facility] Comment on above: Performed By: #### C MP ####[facility] [address] [place], [place] [address]Dr. Juliet García Bilirubin [Mass/Vol] 0.5 mg/dL Normal 0.2-1.0 [facility] Comment on above: Performed By: #### C MP ####[facility] [address] [address]Dr. Juliet García Calcium [Mass/Vol] 8.9 mg/dL Normal 8.5-10.1 [facility] Comment on above: Performed By: #### C MP ####[facility] [address] [place], [place] [address]Dr. Juliet García Chloride [Moles/Vol] 106 mmol/L Normal 98-107 [facility] Comment on above: Performed By: #### C MP ####[facility] [address] [place], [place] [address]Dr. Juliet García CO2 [Moles/Vol] 27.1 mmol/L Normal 21.0-32.0 [facility] Comment on above: Performed By: #### C MP ####[facility] [address] [place], [place] [address]Dr. Juliet García Creatinine [Mass/Vol] 1.46 mg/dL Critically high 0.70-1.30 [facility] Comment on above: Performed By: #### C MP ####[facility] [address] [id number]. Juliet García EGFR-AF ITALIAN 59 mL/min/1.73m2 Critically low >=60 [facility] Comment on above: Performed By: #### C MP ####[facility] [address] [id number]. Juliet García EGFR-NON AF ITALIAN 48 mL/min/1.73m2 Critically low >=60 [facility] Comment on above: Performed By: #### C MP ####[facility] [address] [address]Dr. Juliet García Globulin (S) [Mass/Vol] 3.4 g/dL Normal [facility] Comment on above: Performed By: #### C MP ####[facility] [address] [address]Dr. Juliet García Glucose [Mass/Vol] 93 mg/dL Normal 74-106 [facility] Comment on above: Performed By: #### C MP ####[facility] [address] [address]Dr. Juliet García Potassium [Moles/Vol] 4.7 mmol/L Normal 3.5-5.1 [facility] Comment on above: Performed By: #### C MP ####[facility] [address] [address]Dr. Juliet García Protein [Mass/Vol] 7.4 g/dL Normal 6.4-8.2 [facility] Comment on above: Performed By: #### C MP ####[facility] [address] [address]Dr. Juliet García Sodium [Moles/Vol] 142 mmol/L Normal 136-145 [facility] Comment on above: Performed By: #### C MP ####[facility] [address] [place], [place] [address]Dr. Juliet García Urea nitrogen [Mass/Vol] 25.0 mg/dL Critically high 7.0-18.0 [facility] Comment on above: Performed By: #### C MP ####[facility] [address] [place], [place] [address]Qm. Juliet García Urea nitrogen/Creatinine [Mass ratio] 17.1 mg/mg Normal [facility] Comment on above: Performed By: #### C MP ####[facility] [address] [place], [place] [address]Zl. Juliet García VC ENDOVENOUS ABL 1ST V LTon 01-30-2022 VC ENDOVENOUS ABL 1ST V LT Patient: CARLOS LOCKE Exam Date: 01/30/2022 : 1955 Gender:M Ordering : DR RACHEAL GRAVSE M.D. Admission #: [id number] Family : Order #: [id number] CLICK HERE TO VIEW EXAM RADIOLOGY REPORT [...] M.D. on 01/30/2022 at 12:00 Normal [facility] POINT OF CARE GLUCOSEon 01-11 Glucose [Mass/Vol] 84 mg/dL Normal 74-106 [facility] Comment on above: Performed By: #### P OCGLUC #### [facility] [address] [place] [address] Dr. Juliet García VC COMP CONSULTATIONon 01-21 VC COMP CONSULTATION Patient: CARLOS LOCKE Exam Date: 01/21/2022 : 1955 Gender:M Ordering : DR RACHEAL GRAVES M.D. Admission #: [id number] Family : Order #: [id number] CLICK HERE TO VIEW EXAM RADIOLOGY REPORT [...] for years. The patient is retired from [employer] after working 42 years. The patient denies [...] additional information, and this was performed [facility]. See separate history and physical for medication [...] incompetent branch saphenous tributary/varicose veins. Bilateral incompetent occ med physician veins. PHYSICAL EXAM: The right leg demonstrates [...] pulses were present bilaterally. IMPRESSION: 1. Bilateral feyi-mh-ytfxpbzo great saphenous vein and mild right small [...] Graves MD on 01/21/2022 at 11:46 Normal [facility] VC VENOUS REFLUX MARIE LMTon 0 01-21-2022 VC VENOUS REFLUX MARIE LMT Patient: CARLOS LOCKE Exam Date: 01/21/2022 : 1955 Gender:M Ordering : DR RACHEAL GRAVES M.D. Admission #: [id number] Family : DR NATHALY BOONE . Order #: [id number] CLICK HERE TO VIEW EXAM RADIOLOGY REPORT [...] Compressibility: Normal. Flow: Mild deep venous reflux. Sql Etl Developer: Post/prox calf 5.9mm, 0.7s reflux. Prox/med calf [...] Graves MD on 01/21/2022 at 10:40 Normal [facility] POINT OF CARE GLUCOSEon 06-2 Glucose [Mass/Vol] 87 mg/dL Normal 74-106 [facility] Comment on above: Performed By: #### P OCGLUC ####[facility] [address] [place], [place] [address]Ew. Juliet García SURGICAL PATHOLOGYon 021 SURGICAL PATHOLOGY Specimen #: [id number] Submitting Physician: JULIET GARCÍA M.D. FINAL DIAGNOSIS [place], [place]; [id number] (12/07/2020) Liver, mass , biopsy (A1, A2, [...] do not hesitate to contact us at [phone] with questions or if additional follow up information becomes available. This case was reviewed in conjunction with the GI pathology fellow, Apoorva Diallo MD. The following stains were performed at the [facility] in order to further characterize this case: [...] in-situ hybridization tests have been determined by [facility]'s [facility] [place] ([facility]) in a manner consistent with CLIA requirements. One or more of these tests have not been cleared or approved by the FDA. [facility] is regulated under CLIA as qualified to perform high-complexity testing. These tests are used for clinical purposes. They should not be regarded as investigational or for research. Nicolasa Cheema M.D. (Electronic Signature) _ SPECIMEN SUBMITTED A: 12 slides [id number] CLINICAL DATA Mass Date of Report: 03/27/2021 Date of Procedure: 03/16/2021 Date of Receipt: 03/15/2021 Submitted by: JULIET GARCÍA M.D. Location: Diagnostic interpretation performed at [facility], [address] [place] [address]. CLIA Number: [id number] Normal [facility] Comment on above: Performed By: #### S #### See report for performing lab information. Vital Signs Date Time Vital Sign Value Performing Clinician Facility 07-15-2024 09:11-0500 Body mass index (BMI) [Ratio] 37.75 kg/m2 Tulio Ruggiero MD Work Phone: [facility] 07-15-2024 09:11-0500 Body temperature 98.4 [degF] Tulio Ruggiero MD Work Phone: [facility] 07-15-2024 09:11-0500 Body weight 133.36 kg Tulio Ruggiero MD Work Phone: [facility] 07-15-2024 09:11-0500 Diastolic blood pressure 60 mm[Hg] Tulio Ruggiero MD Work Phone: [facility] 07-15-2024 09:11-0500 Heart rate 96 /min Tulio Ruggiero MD Work Phone: [facility] 07-15-2024 09:11-0500 Respiratory rate 18 /min Tulio Ruggiero MD Work Phone: [facility] 07-15-2024 09:11-0500 SaO2% (BldA) [Mass fraction] 96 % Tulio Ruggiero MD Work Phone: [facility] 07-15-2024 09:11-0500 Systolic blood pressure 114 mm[Hg] Tulio Ruggiero MD Work Phone: [facility] 05-27-2024 08:56-0500 Blood Pressure Location LIZ HERNANDEZ [facility] 05-27-2024 08:56-0500 Body temperature 98.6 [degF] LIZ FRANCORY [facility] 05-27-2024 08:56-0500 Diastolic blood pressure 67 mm[Hg] LIZ DAVID [facility] 05-27-2024 08:56-0500 Heart rate 79 /min LIZ DAVID [facility] 05-27-2024 08:56-0500 Respiratory rate 18 /min LIZ DAVID [facility] 05-27-2024 08:56-0500 Systolic blood pressure 117 mm[Hg] LIZ DAVID [facility] 11-04-2023 08:38-0400 Blood Pressure Location LIZ DAVID [facility] 11-04-2023 08:38-0400 Diastolic blood pressure 82 mm[Hg] LIZ DAVID [facility] 11-04-2023 08:38-0400 Heart rate 80 /min LIZ DAVID [facility] 11-04-2023 08:38-0400 Respiratory rate 16 /min LIZ DAVID [facility] 11-04-2023 08:38-0400 Systolic blood pressure 131 mm[Hg] LIZ DAVID [facility] 06-03-2023 09:59-0500 Blood Pressure Location LIZ DAVID [facility] 06-03-2023 09:59-0500 Diastolic blood pressure 74 mm[Hg] LIZ HERNANDEZ [facility] 06-03-2023 09:59-0500 Heart rate 70 /min LIZ HERNANDEZ [facility] 06-03-2023 09:59-0500 Respiratory rate 16 /min LIZ HERNANDEZ [facility] 06-03-2023 09:59-0500 Systolic blood pressure 138 mm[Hg] LIZ DAVID [facility] 05-23-2022 09:45-0500 Body height 187.96 cm Alejandra Olexa Other [facility] [employer] Other 05-23-2022 09:45-0500 Body mass index (BMI) [Ratio] 40.57 kg/m2 Alejandra Olexa Other [facility] Other 05-23-2022 09:45-0500 Body weight 143.34 kg Alejandra Olexa Other [facility] Other 08-07-2021 14:15-0500 Body height 187.96 cm Aeljandra Olexa Other [facility] Other 08-07-2021 14:15-0500 Body mass index (BMI) [Ratio] 40.64 kg/m2 Alejandra Olexa Other [facility] Other 08-07-2021 14:15-0500 Body weight 143.61 kg Alejandra Olexa Other [facility] Other 04-12-2021 10:30-0400 Body height 187.96 cm Racheal [place] Other [facility] Other 04-12-2021 10:30-0400 Body mass index (BMI) [Ratio] 41.75 kg/m2 Racheal Frances Other [facility] Other 04-12-2021 10:30-0400 Body weight 147.51 kg Racheal Frances Other [facility] Other 04-12-2021 10:30-0400 Diastolic blood pressure 71 mm[Hg] Racheal Frances Other [facility] Other 04-12-2021 10:30-0400 Systolic blood pressure 131 mm[Hg] Racheal [place] Other [facility] Other Encounters Encounter Date Encounter Type Care Provider Facility Start: 06-02-2025 ambulatory LIZ Martinez ty:[facility] Start: 07-26-2024 End: 07-[facility] Start: 07-23-2024 End: 07-23-2024 ambulatory [facility] DO Facility:[facility] Start: 07-20-2024 End: 07-20-2024 Clinisync Result Encounter Generic External Data Provider [facility] External Department Unsolicited Start: 07-20-2024 End: 07-20-2024 Clinisync Result Encounter Generic External Data Provider [facility] External Department Unsolicited Start: 07-15-2024 End: 07-15-2024 Bamboo flowsheet Tulio Ruggiero MD Work Phone: [facility] Start: 07-15-2024 End: 07-15-2024 Bamboo flowsheet Tulio Ruggiero MD Work Phone: [facility] Start: 07-15-2024 End: 07-15-2024 Patient encounter procedure Tulio Ruggiero MD Work Phone: [facility] Work Phone: Start: 07-15-2024 End: 07-15-2024 Periodic preventive med est patient 65yrs& older Tulio Ruggiero MD Work Phone: [facility] Comment on above: Annual physical exam (Primary Dx); Encounter for preoperative assessment; Type 2 diabetes mellitus with hyperglycemia, without long-term current use of insulin ([facility]); Arthritis, gouty; Polyneuropathy due to type 2 diabetes mellitus ([facility]); Class 2 severe obesity due to excess calories with serious comorbidity and body mass index (BMI) of 37.0 to 37.9 in adult ([facility]); Dyslipidemia ([facility]) Start: 07-15-2024 End: 07-15-2024 Preoperative state Tulio Ruggiero MD Work Phone: [facility] [employer] Start: 07-15-2024 End: 07-15-2024 ambulatory TULIO RUGGIERO Not Available Start: 05-27-2024 End: 05-27-2024 ambulatory LIZ E DAVID Facility:[email or web address] Start: 05-27-2024 End: 05-27-2024 Patient encounter procedure LIZ HERNANDEZ [facility] Start: 04-08-2024 End: 04-09-2024 Refill Tulio Ruggiero MD Work Phone: [facility] Comment on above: Polyneuropathy due t o type 2 diabetes mellitus ([facility]) Start: 04-06-2024 End: 04-07-2024 Refill Tulio Ruggiero MD Work Phone: [facility] Comment on above: Male hypogonadism Start: 01-12-2024 End: 01-12-2024 ambulatory TULIO RUGGIERO Not Available Start: 11-04-2023 End: 11-04-2023 ambulatory LIZDOYLE HERNANDEZ Facility:[email or web address] Start: 11-04-2023 End: 11-04-2023 Patient encounter procedure LIZ HERNANDEZ [facility] Start: 07-23-2023 Patient encounter procedure Tulio Ruggiero MD Work Phone: [facility] Start: 07-23-2023 End: 07-23-2023 ambulatory TULIO RUGGIERO Not Available Start: 06-03-2023 End: 06-03-2023 Patient encounter procedure LIZ HERNANDEZ [facility] Start: 12-05-2022 End: 12-06-[address] [...] Encounter for preprocedural cardiovascular examination T[facility]IO [facility] Start: 10-18-2022 Encounter for preprocedural laboratory examination [facility] Start: 10-16-[address] FELISA BERRIOS [...] . Facility:[facility] Start: 08-06-2022 End: 08-07-2022 ambulatory [facility] Facility:[facility] Start: 07-31-2022 End: 07-31-2022 ambulatory [facility] Start: 07-31-2022 End: 08-01-[address] NATHALY BOONE . Facility:[facility] Start: 07-25-2022 End: 07-26-2022 ambulatory RODRIGO JOHNSON . Facility:[facility] Start: 07-24-2022 End: 07-25-2022 ambulatory [facility] Noa [facility] Facility:[facility] Start: 07-23-2022 End: 07-24-[address] FELISA BERRIOS . Facility:[facility] Start: 07-22-2022 End: 07-23-[address] FELISA BERRIOS . Facility:[facility] Start: 07-05-[address] NATHALY BOONE . Faci lity:[facility] Start: 06-28-2022 End: 06-29-[address] LOLY BARNARD Facility:[facility] Start: 06-10-2022 End: 06-11-[address] FELIAS BERRIOS . Facility:[facility] Start: 05-27-2022 End: 05-28-[address] RACHEAL GRAVES Facility:[facility] Start: 05-23-2022 End: 05-23-2022 ambulatory Alejandra Cain Other [facility] Other Start: 05-23-2022 Office outpatient vi sit 15 minutes Alejandra Cain [facility] Start: 05-03-2022 End: 05-04-[address] [...] Facility:[facility] Start: 02-13-2022 End: 02-14-[address] EFLISA BERRIOS . Facility:[facility] Start: 02-06-2022 End: 02-07-2022 [...] 08-07-2021 End: 08-07-2021 ambulatory Alejandra Cain Other [facility] Other Start: 08-07-2021 Office outpatient vi sit 15 minutes Alejandra Cain [facility] Start: 04-12-2021 Office outpatient vi sit 15 minutes Racheal [place] [facility] Procedures Date Procedure Procedure Detail Performing Clinician Start: 07-20-2024 [facility] UA (CLEAN/CATCH) CLINIC PHYSICIAN DIRECTOR/MICRO IF IND. Generic External Data Provider Start: 07-20-2024 ALL CBC WITH AUTO DIFF Generic External Data Provider Start: 05-03-[address] RACHEAL GRAVES Comment on above: Performed By: #### P SAD #### [facility] [address] [address] [address] Juliet García Start: 12-07-2020 CT guided biopsy NATALIE HERNANDEZ Comment on above: LIVER. NO SEDATION. Start: 07-15-2016 Colonoscopy Tulio lua MD Work Phone: Arthroscopy of knee LIZ HERNANDEZ Bilateral cataracts (disorder) LIZ HERNANDEZ H/O: vasectomy LIZ ARGUETA Y Titanium (substance) JOSE HERNANDEZ Comment on above: Toe Tonsillectomy ILZ HERNANDEZ Plan of Treatment Date Care Activity Detail Author Start: 07-15-2026 Screening for malign ant neoplasm of colon [facility] Start: 03-10-2025 Glaucoma screening Diabetes: R etinopathy Screening [facility] Start: 01-13-2025 Urine screening for protein Diabetes: Urine Protein Screening [facility] Start: 01-12-2025 End: 01-12-2025 Patient encounter procedure 01/12/2025 9:00 AM EDT Office Visit [facility] [address] [place] [address] Tulio Ruggiero MD [address] [place] [id number] [facility] Start: 07-16-2024 Hemoglobin A1c measurement Diabetes: Hemoglobin A1C [facility] Start: 07-15-2024 End: 07-15-2025 Basic metabolic 1998 panel - Serum or Plasma Basic metabolic panel Lab Routine Annual physical exam Expected: 07/15/2024 (Approximate), Expires: 07/15/2025 [facility] Comment on above: Expected: 07/15/2024 (Approximate), Expires: 07/15/2025 Start: 07-15-2024 End: 07-15-2025 CBC W Auto Differential panel - Blood CBC and differential Lab Routine Annual physical exam Expected: 07/15/2024 (Approximate), Expires: 07/15/2025 [facility] Comment on above: Expected: 07/15/2024 (Approximate), Expires: 07/15/2025 Start: 07-15-2024 End: 07-15-2025 Hemoglobin A1c/Hemoglobin.total in Blood Hemoglobin A1c Lab Routine Annual physical exam Expected: 07/15/2024 (Approximate), Expires: 07/15/2025 [facility] Work Phone: Comment on above: Expected: 07/15/2024 (Approximate), Expires: 07/15/2025 Start: 07-15-2024 End: 07-15-2025 Hepatic function 2000 panel - Serum or Plasma Hepatic function panel Lab Routine Annual physical exam Expected: 07/15/2024 (Approximate), Expires: 07/15/2025 [facility] Comment on above: Expected: 07/15/2024 (Approximate), Expires: 07/15/2025 Start: 07-15-2024 End: 07-15-2025 Lipid 1996 panel - Serum or Plasma Lipid panel Lab Routine Annual physical exam Expected: 07/15/2024 (Approximate), Expires: 07/15/2025 [facility] Comment on above: Expected: 07/15/2024 (Approximate), Expires: 07/15/2025 Start: 07-15-2024 End: 07-15-2025 Prostate specific Ag [Mass/volume] in Serum or Plasma PSA Lab Routine Annual physical exam Expected: 07/15/2024 (Approximate), Expires: 07/15/2025 [facility] Comment on above: Expected: 07/15/2024 (Approximate), Expires: 07/15/2025 Start: 07-15-2024 End: 07-15-2025 Thyrotropin [Units/volume] in Serum or Plasma TSH Lab Routine Annual physical exam Expected: 07/15/2024 (Approximate), Expires: 07/15/2025 [facility] Comment on above: Expected: 07/15/2024 (Approximate), Expires: 07/15/2025 Start: 07-15-2024 End: 07-15-2024 Patient encounter procedure [facility] Comment on above: Arrived Start: 03-14-2024 Influenza vaccination Influenza Vacc ine (#1) [facility] Start: 01-23-2024 Hemoglobin A1c measurement Diabetes: Hemoglobin A1C [facility] Start: 05-27-2022 Pneumococcal Vaccine : 65+ Years (2 of 2 - PCV) Pneumococcal Vaccine: 65+ Years (2 of 2 - PCV) [facility] Start: 1975 Urine screening for protein Diabetes: Urine Protein Screening [facility] Start: 1956 Screening for malign ant neoplasm of colon [facility] Immunizations Immunization Date Immunization Notes Care Provider Fa cility 04-19-2024 influenza virus vacc ine, unspecified formulation LIZ HERNANDEZ [facility] 04-20-2023 SARS-CoV-2 mRNA (tozinameran 5y-11y) vaccine LIZ HERNANDEZ [facility] Comment on above: Result Comment: covi d 19 mRNA (cvs) 04-12-2023 influenza virus vacc ine, unspecified formulation Tulio Ruggiero MD Work Phone: [facility] 04-17-2022 influenza virus vacc ine, unspecified formulation LIZ HERNANDEZ [facility] 03-23-2022 SARS-CoV-2 (COVID-19 ) [id number] LIZ HERNANDEZ [facility] 10-23-2021 SARS-CoV-2 mRNA (wthvurdqewg-eohv-prsfno e) vaccine LIZ HERNANDEZ [facility] 05-27-2021 pneumococcal polysaccharide vaccine, 23 valent LIZ HERNANDEZ [facility] 05-06-2021 SARS-CoV-2 (COVID-19 ) mRNA BNT-162b2 vax LIZ HERNANDEZ [facility] Comment on above: Result Comment: 2021: [id number] 04-07-2021 influenza virus vacc ine, unspecified formulation LIZ DAVID [facility] of [facility] 09-18-2020 SARS-CoV-2 (COVID-19 ) mRNA BNT-162b2 vax LIZ DAV[facility] [place] 04-19-2020 influenza virus vacc ine, unspecified formulation LIZ DAVID [facility] [place] 04-15-2020 influenza virus vacc ine, unspecified formulation LIZ DAVID [facility] 04-20-2018 influenza virus vacc ine, unspecified formulation LIZ DAVID [facility] 03-24-2018 influenza virus vacc ine, unspecified formulation LIZ DAVID [facility] 05-01-2013 influenza virus vacc ine, unspecified formulation LIZ DAVID [facility] Payers Date Payer Category Payer [facility] [id number] 2022 Medicare 2022 Unknown [id number] 2022 Unknown [id number]. 1.13.693.2. [id number] 2021 Medicare [id number] 2019 Unknown [id number] 2.16.840.1.761396.19 1959 Medicare [id number] 1956 Unknown [id number] 2.16.840.1.670376.3.579.2. 593 1956 Unknown [id number] 2.16.840.1.233579.3.579.2. 593 1956 Unknown [id number] 2.16.840.1.006578.3.579.2. 593 1956 Unknown [id number] 2.16.840.1.758183.3.579.2. 593 1956 Unknown [id number] 2.16.840.1.178950.3.579.2. 593 1956 Unknown [id number] 2.16.840.1.160143.3.579.2. 593 1956 Unknown [id number] 2.16.840.1.397709.3.579.2. 593 1956 Unknown [id number] 2.16.840.1.802968.3.579.2. 593 1956 Unknown [id number] 2.16.840.1.613072.3.579.2. 593 1956 Unknown [id number] 2.16.840.1.515412.3.579.2. 593 1956 Unknown [id number] 2.16.840.1.108786.3.579.2. 593 1956 Unknown [id number] 2.16.840.1.879139.3.579.2. 593 1956 Unknown [id number] 2.16.840.1.831303.3.579.2. 593 1956 Unknown [id number] 2.16.840.1.162001.3.579.2. 593 1956 Unknown [id number] 2.16.840.1.753156.3.579.2. 593 1956 Unknown [id number] 2.16.840.1.745052.3.579.2. 593 1956 Unknown [id number] 2.16.840.1.158593.3.579.2. 593 1956 Unknown [id number] 2.16.840.1.803181.3.579.2. 593 1956 Unknown [id number] 2.16.840.1.020478.3.579.2. 593 1956 Unknown [id number] 2.16.840.1.633768.3.579.2. 593 1956 Unknown [id number] 2.16.840.1.460338.3.579.2. 593 1956 Unknown [id number] 2.16.840.1.558701.3.579.2. 593 1956 Unknown [id number] 2.16.840.1.383143.3.579.2. 593 1956 Unknown [id number] 2.16.840.1.922562.3.579.2. 593 1956 Unknown [id number] 2.16.840.1.213664.3.579.2. 593 1956 Unknown [id number] 2.16.840.1.280524.3.579.2. 593 1956 Unknown [id number] 2.16.840.1.678266.3.579.2. 593 1956 Unknown [id number] 2.16.840.1.747944.3.579.2. 593 1956 Unknown [id number] 2.16.840.1.950513.3.579.2. 593 1956 Unknown [id number] 2.16.840.1.896121.3.579.2. 593 1956 Unknown [id number] 2.16.840.1.773551.3.579.2. 593 1956 Unknown [id number] 2.16.840.1.619031.3.579.2. 593 1956 Unknown [id number] 2.16.840.1.495899.3.579.2. 593 1956 Unknown [id number] 2.16.840.1.596614.3.579.2. 593 1956 Unknown [id number] 2.16.840.1.168185.3.579.2. 593 1956 Unknown [id number] 2.16.840.1.814475.3.579.2. 593 1956 Unknown [id number] 2.16.840.1.924980.3.579.2. 593 1956 Unknown [id number] 2.16.840.1.294582.3.579.2. 593 1956 Unknown [id number] 2.16.840.1.063573.3.579.2. 593 1956 Unknown [id number] 2.16.840.1.434659.3.579.2. 593 1956 Unknown [id number] 2.16.840.1.919178.3.579.2. 1259 1956 Unknown [id number] 2.16.840.1.837452.3.579.2. 1259 1956 Unknown [id number] 2.16.840.1.105693.3.579.2. 1259 1956 Unknown [id number] 2.16.840.1.909478.3.579.2. 196 1956 Unknown [id number] 2.16.840.1.325959.3.579.2. 196 1956 Unknown [id number] 2.16.840.1.937032.3.579.2. 727 1956 Unknown [id number] 2.16.840.1.818593.3.579.2. 727 1956 Unknown [id number] 2.16.840.1.001234.3.579.2. 727 Social History Date Type Detail Facility Start: 01-12-2024 End: 07-15-2024 Sex Assigned At [facility] Start: 03-10-2023 End: 06-03-2023 Tobacco smoking status Never smoked tobacco (finding) [facility] Tobacco smoking status Never [facility] Start: 03-10-2023 Tobacco use and exposure Smokeless tobacco non-user [facility] Start: 01-12-2024 End: 07-15-2024 History of Social function [facility] Start: 1955 Sex assigned at Not on file [facility] Functional Status Date Assessment Result Facility 05-27-2024 Functional Status N/A [facility] 11-04-2023 Functional Status N/A [facility] 06-03-2023 Functional Status N/A [facility] Clinical Notes 04-12-2021 to 07-23-2024 Tulio Ruggiero MD - 07/15/2024 9:51 AM Mony Ruggiero MD - 07/15/2024 9:50 AM Mony Ruggiero MD - 07/15/2024 9:49 AM Mony Ruggiero MD - 07/15/2024 9:48 AM EST Note Date & Type Note Facility 07-23-2024 Note Procedure: AP view o f the orbits. 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 Comparison: None. Findings: Orbits: No radiopaque foreign body. Bones: No gross acute fracture or aggressive abnormality. IMPRESSION: No radiopaque foreign body of the orbits. Final Dictated by: Jordan Villavicencio MD Dictated DT/TM: 07/23/2024 10:21 am Signed by: Jordan Villavicencio MD Signed (Electronic Signature): 07/23/2024 10:22 am (If Report Is Signed, Electronically Signed in Other Vendor System) [facility] 07-15-2024 History of Present illness Narrative Associated Problem(s): Dyslipidemia (CMS/HCC) Due for labs. Associated Problem(s): Class 2 severe obesity due to excess calories with serious comorbidity and body mass index (BMI) of 37.0 to 37.9 in adult (CMS/HCC) Weight down 9 pounds in past year. Continue exercise and diet changes. Associated Problem(s): 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) Neuropathy stable and continue neurontin. Associated Problem(s): Type 2 diabetes mellitus with hyperglycemia, without long-term current use of insulin (CMS/HCC) Reports BS controlled and due for A1C. Stick to ADA diet and limit carbs. Associated Problem(s): Encounter for preoperative assessment Able to proceed with upcoming surgery at low risk for complications. History of DM but controlled with medication. No CAD or HTN. Not having chest pain or palpitations. Recommend routine PAT. Associated Problem(s): Annual physical exam Due for labs. Discussed proper diet and regular aerobic exercise. Need aerobic exercise 5-6 days a week for 30 minutes at a time. Smaller portions and limit total calories. Colonoscopy every 10 years. Tetanus every 10 years. Advised not to smoke. Discussed daily Aspirin therapy. Images from the original note were not included. Subjective Patient ID: Carlos Locke is a 68 y.o. male who presents for Follow-up (6m). Presents for annual PE and preoperative clearance. Patient feels well today. Weight down 9 pounds in the past year. Active and goes to the gym several days a week. Tries to watch diet and eat healthy. Increased fruits and vegetables. Smaller portions and limits snacking. Tries to limit total daily calories. Due for labs. Plan on having left knee replacement in the next several weeks. Increased pain with activity and conservative treatment not helping. Not having chest pain or palpitations. No SOB or cough. Reports BS controlled around 90-100. Tries to eat well and stick to ADA diet. Denies signs of elevated BS such as polyuria, polyphagia or polydipsia. Review of Systems Constitutional: Negative for fatigue. Respiratory: Negative for cough, shortness of breath and wheezing. Cardiovascular: Negative for chest pain and palpitations. Gastrointestinal: Negative for abdominal pain, diarrhea, nausea and vomiting. Genitourinary: Negative for dysuria. Objective Physical Exam Constitutional: General: He is not in acute distress. Appearance: Normal appearance. HENT: Head: Normocephalic. Right Ear: Tympanic membrane and ear canal normal. Left Ear: Tympanic membrane and ear canal normal. Eyes: Extraocular Movements: Extraocular movements intact. Pupils: Pupils are equal, round, and reactive to light. Cardiovascular: Rate and Rhythm: Normal rate and regular rhythm. Heart sounds: No murmur heard. No friction rub. No gallop. Pulmonary: Breath sounds: Normal breath sounds. No wheezing, rhonchi or rales. Abdominal: General: Bowel sounds are normal. There is no distension. Palpations: Abdomen is soft. Tenderness: There is no abdominal tenderness. There is no guarding or rebound. Musculoskeletal: General: Normal range of motion. Left lower leg: No edema. Neurological: General: No focal deficit present. Mental Status: He is alert. Cranial Nerves: No cranial nerve deficit. Deep Tendon Reflexes: Reflexes normal. Assessment/Plan Problem List Items Addressed This Visit Dyslipidemia ([facility]) Due for labs. Arthritis, gouty Relevant Medications probenecid (Benemid) 500 MG tablet Class 2 severe obesity due to excess calories with serious comorbidity and body mass index (BMI) of 37.0 to 37.9 in adult ([facility]) Weight down 9 pounds in past year. Continue exercise and diet changes. Type 2 diabetes mellitus with hyperglycemia, without long-term current use of insulin ([facility]) Reports BS controlled and due for A1C. Stick to ADA diet and limit carbs. Polyneuropathy due to type 2 diabetes mellitus ([facility]) Neuropathy stable and continue neurontin. Annual physical exam - Primary Due for labs. Discussed proper diet and regular aerobic exercise. Need aerobic exercise 5-6 days a week for 30 minutes at a time. Smaller portions and limit total calories. Colonoscopy every 10 years. Tetanus every 10 years. Advised not to smoke. Discussed daily Aspirin therapy. Relevant Orders Hemoglobin A1c Basic metabolic panel CBC and differential Hepatic function panel Lipid panel PSA TSH Encounter for preoperative assessment Able to proceed with upcoming surgery at low risk for complications. History of DM but controlled with medication. No CAD or HTN. Not having chest pain or palpitations. Recommend routine PAT. documented in this encounter [facility] 05-27-2024 Hospital Discharge instructions Patient Education 05/27/2024 09:56:36 Kidney Stones, Bjyw-zl-Onia Kidney Stones Kidney stones are rock-like masses [...] Follow these instructions at home: Medicines Take gwwn-yzm-wlowvtz and prescription medicines only as told by [...] Kidney Foundation (NKF): kidney.org Urology Care Foundation (F): urologyhealth.org Contact a doctor if: You have [...] provider. Document Revised: 02/21/2023 Document Reviewed: 02/21/2023 [employer] Patient Education 2023 [employer]. Follow Up Care 11/04/2023 09:32:44 With:DAVID IVAN, LIZ Juarez, URL Address: When:1 year [facility] 05-27-2024 Note Patient Education Urology Kidney [...] these instructions at home: Medicines ??? Take ptyn-zhh-kkbtgui and prescription medicines only as told by [...] provider. Document Revised: 02/21/2023 Document Reviewed: 02/21/2023 [employer] Patient Education ? 2023 [employer] [facility] 11-04-2023 Hospital Discharge instructions Patient Education 11/04/2023 [...] Follow these instructions at home: Medicines Take jbfx-lmf-lrxagjr and prescription medicines only as told by [...] provider. Document Revised: 09/26/2021 Document Reviewed: 09/26/2021 [employer] Patient Education 2022 [employer]. Follow Up Care 06/03/2023 10:28:55 With:LIZ HERNANDEZ PA-C, URL Address: [address] [place] [address] [phone] When: Unknown [facility] 06-03-2023 Hospital Discharge instructions Patient Education 06/03/2023 [...] treatment? Where to find more information [employer]: www.cancer.org [employer]: www.auanet.org Contact a health care [...] provider. Document Revised: 12/24/2021 Document Reviewed: 12/24/2021 [employer] Patient Education 2022 [employer]. Follow Up Care 05/29/2022 11:47:27 With:DAVID IVAN, LIZ Juarez, URL Address: [address] [place] [address] [phone] When: Unknown Comments:6 mos w/ PSA [facility] 12-03-2022 Note PROCEDURE: XR FOOT L [...] authenticated by: ELIN KENNY Date: 2022-12-03 09:57 [facility] 11-12-2022 Note PROCEDURE: XR FOOT [...] by: ZAFAR FERRER Date: 2022-11-12 13:59 [facility] 10-22-2022 Note PROCEDURE: XR FOOT L [...] by: ELIN KENNY Date: 2022-10-22 07:48 [facility] 10-22-2022 Note PROCEDURE: XR FOOT L T 2V HISTORY: Pain COMPARISON: XR foot left 10/21/2022 FINDINGS: BONES:Multiple intraoperative spot fluoroscopic images demonstrate mechanical fusion of the first metatarsophalangeal joint and resection of head of first proximal phalanx. IMPRESSION: 1. Surgical changes of left first toe as detailed above. Electronically authenticated by: ELIN KENNY Date: 2022-10-22 07:46 [facility] 07-31-2022 Note Currently stable [facility] 07-31-2022 Note Hypertension is well controlled 114/64 Continue lisinopril 5 mg Recent CR elevated 1.59- his cr typically has been 1.2-1.4 - He has been on antibiotics for Lt foot infection- DFU with wound care. [facility] 07-31-2022 Note Lipid abnormalities are currently well controlled with lipitor 20 mg- LDL currently 58.6 on labs 07/26/2022 Liver function 04/2022 were normal [facility] 07-31-2022 Note UTP CARDIOLOGY PROGR ESS [...] RTC 1 year or earlier if needed [facility] 07-31-2022 Note Patient here for 6 m o follow up history of PE and hyperlipidemia. Had labs in Oct and echo in Jun 2022. Patient denies chest pain, SOB, and increase in LE edema. Doing very well from cardiac standpoint. Was seeing Dr. Graves for his varicose veins. Review of Systems Cardiovascular: Positive for leg swelling. All other systems reviewed and are negative. [facility] 07-31-2022 Note CONSULTATION PROCEDURE DATE: 07/31/2022 [...] the clinic in three months' time. [facility] 07-25-2022 Note CONSULTATION CONSULTATION DATE: 07/25/2022 HISTORY OF PRESENT ILLNESS: This is a 66-year-old gentleman who presents to the Pain Clinic today with increased lower back pain. The patient does have chronic bilateral knee pain, but he states those are doing quite well. He did receive a left knee steroid injection in April. The patient just recently returned from a [place] vacation, where he visited multiple [employer] mayes and had a lot of increased [...] and will be contacted upon approval. [facility] 07-24-2022 Note PROCEDURE: XR FOOT L [...] by: ELIN KENNY Date: 2022-07-24 10:21 [facility] 06-10-2022 Note PROCEDURE: XR KNEE L T 4V or > HISTORY: Pain in left knee ; chronic left knee pain COMPARISON: XR knee bilateral 05/31/2021 FINDINGS: BONES:Marked narrowing of the medial joint space with suspected dzqa-uq-fbjf articulation. Moderate-marked narrowing of the lateral compartment. Mild narrowing of anterior compartment. Small periarticular osteophytes involving the margins of all 3 compartments. No fracture or dislocation. SOFT TISSUES:No visible soft tissue swelling. EFFUSION:Small joint effusion. OTHER: Negative. IMPRESSION: 1. Marked degenerative joint disease. Stable to minimally progressed. Electronically authenticated by: ELIN KENNY Date: 2022-06-10 19:35 [facility] 05-23-2022 Evaluation note Encounter Date Diagnosis [...] Pain in left knee (ICD-10 - M25.562) [facility] 10-11-2022 NoteCONSULTATION CONSULTATION DATE: 04/23/2022 CHIEF [...] the time being. CC: Felisa Berrios M.D.[facility] [id number] NoteCONSULTATION CONSULTATION DATE: 04/04/2022 HISTORY OF PRESENT [...] indicated. Patient agreed with plan of care.[facility] [id number] Note CONSULTATION CONSULTATION DATE: 02/14/2022 HISTORY OF [...] time unless otherwise indicated. Patient acknowledges understanding.[facility] [id number] NoteCONSULTATION PROCEDURE DATE: 02/14/2022 PREOPERATIVE DIAGNOSIS: Bilateral [...] will be followed up in the office.[id number] Evaluation note* Encounter Date Diagnosis Assessment Notes [...] Pain in left knee (ICD-10 - M25.562) [facility] 09-30-2021 Evaluation note* Encounter Date Diagnosis Assessment Notes Treatment Notes Treatment Clinical Notes Mar, Liver hemangioma (ICD-10 - D18.03) Mar, HODGES (nonalcoholic steatohepatitis) (ICD-10 - K75.81) [facility] Other Evaluation + Plan note Future Appointments Appointment Date:11/04/2023 08:30:00 AM Scheduled Provider:LIZ HERNANDEZ PA-C Location:[facility] Appointment Type:URO Office Visit Diagnostic Tests Pending * PSA Total 06/03/23 [facility] evaluation + Plan note Future Appointments Appointment Date:05/25/2024 08:40:00 AM Scheduled Provider:LIZ HERNANDEZ PA-C Location:[facility] Appointment Type:URO Office Visit [facility] evalqomlja note* Diagnosis 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) [facility] Diagnosis Male hypogonadism Other testicular hypofunction [facility]* Diagnosis Annual physical exam- Primary Routine general medical examination at a health care facility Type 2 diabetes mellitus with hyperglycemia, without long-term current use of insulin (CMS/HCC) Type 2 diabetes mellitus with hyperglycemia, without long-term current use of insulin (CMS/HCC)- Primary Arthritis, gouty Gouty arthropathy, unspecified Seasonal allergic rhinitis due to pollen DDD (degenerative disc disease), lumbar Degeneration of lumbar or lumbosacral intervertebral disc 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) Primary insomnia Persistent disorder of initiating or maintaining sleep Annual physical exam- Primary Routine general medical examination at a health care facility Encounter for preoperative assessment Type 2 diabetes mellitus with hyperglycemia, without long-term current use of insulin (CMS/HCC) Arthritis, gouty Gouty arthropathy, unspecified 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) Class 2 severe obesity due to excess calories with serious comorbidity and body mass index (BMI) of 37.0 to 37.9 in adult (CMS/HCC) Dyslipidemia (CMS/HCC) Other and unspecified hyperlipidemia [facility] - Reported* Type Description Date Medical History DM II Medical History HTN Medical History hyperlipidemia Medical History gout Surgical History knee surgery Surgical History tonsillectomy Surgical History vasectomy Surgical History sinus surgery Surgical History back injections Hospitalization History SEE ABOVE SURGICAL HX [facility] Other Hospital course Narrative No data available for this section [facility] progress note No data available for this section [facility] Summary Purpose Family History No Family History Records FoundNo Family History Records FoundNo Family History Records Found No data available for this section No data available for this section No data available for this section No [...] section and content) DATE CREATED AUTHOR 03/29/2021 [facility] DATE CREATED AUTHOR AUTHOR'S ORGANIZ ATION 08/06/[address] [facility] DATE CREATED AUTHOR AUTHOR'S ORGANIZ ATION 12/20/2022 [facility] pital DATE CREATED AUTHOR AUTHOR'S ORGANIZ ATION 07/16/2024 [facility] EPIC DATE CREATED AUTHOR AUTHOR'S ORGANIZ ATION 07/28/2024 [facility] DATE CREATED AUTHOR AUTHOR'S ORGANIZ ATION 08/01/2024 [facility] REASON FOR VISIT (unrecogniz ed section and content) Reason Comments Med Refill Reason Onset Date Comments Med Refill 04/06/2024 Reason Comments Follow-up 6m Patient Care team informatio n (unrecognized section and content) [employer] Relationship Specialty Start Date End Date Tulio Ruggiero MD [address] [place] [address] PCP - [employer] 04/13/23 Tulio Ruggiero MD [address] [place] [address] PCP - General Family Medicine 01/12/24 [employer] Relationship Specialty Start Date End Date Tulio Ruggiero MD [address] [place] [phone] PCP - [employer] 04/13/23 Tulio Ruggiero MD [address] [place] [address] PCP - General Family Medicine 01/12/24 [employer] Relationship Specialty Start Date End Date Tulio Ruggiero MD [address] [place] [phone] PCP - [employer] 04/13/23 Tulio Ruggiero MD [address] [place] [address] PCP - General Family Medicine 01/12/24 [employer] Relationship Specialty Start Date End Date Tulio Ruggiero MD [address] [place] [address] PCP - [employer] 04/13/23 Tulio Ruggiero MD [address] [place] [address] PCP - General Family Medicine 01/12/24 FOR RECORDS PERTAINING TO PATIENTS WHO ARE [...] BE BASED ON THE PRIMARY CLINICAL RECORDS. [employer] provides no warranty or guarantee of the accuracy or completeness of information in this document.
== END 2024-08-05 09:29 | disposition home or self-care (01) ==
LOC: LAB 09:28
PROVIDERS: PCP Family Medicine; Visit Provider Student in an Organized Health Care Education/Training Program
DX: Z01.812 Encounter for preprocedural laboratory examination (principal); M17.12 Unilateral primary osteoarthritis, left knee
CPT/HCPCS: 36415; 86850; 86900; 86901

== ENCOUNTER 2024-08-19 10:35 | Outpatient (OUT) | payer BC, MEDICARE, SELFPAY | END 2024-08-19 10:36 | disposition home or self-care (01) | LOC: LAB 10:35 | PROVIDERS: PCP Family Medicine; Visit Provider Student in an Organized Health Care Education/Training Program | DX: Z01.812 Encounter for preprocedural laboratory examination (principal); M17.12 Unilateral primary osteoarthritis, left knee | CPT/HCPCS: 36415; 86850; 86900; 86901 ==

== ENCOUNTER 2024-08-23 06:58 | Day surgery (SDC) | payer BC, MEDICARE, SELFPAY ==
[2024-07-20 09:48] VITALS: BP 118/68; PULSE 87; TEMP 36.5; O2SAT 98; BMI 38.7
[2024-08-23] VITALS (27 sets, daily range): BP systolic 114–151; BP diastolic 69–82; PULSE 79–99; TEMP 36.1–36.9; O2SAT 88–99; BMI 38.4
--- OUTSIDE RECORDS SUMMARY | 2024-08-23 07:02 | XMS_ITS | CCD ---
Author Organization [facility] Care Team Providers Care State Director Name Role Phone Dominikjamaal Racheal Unavailable Ant Alejandra Unavailable BENTLEY MACK [...] Care Unavailable ELTAHAWLiza, DR SALCIDO Attending Unavailable ELTAJASMYNE, DR SALCIDO Admitting Unavailable BERRIOS ., DR FELISA Juarez Primary Care Unavailable BERRIOS ., DR FELISA Juarez Attending Unavailable BERRIOS ., DR FELISA Juarez Consulting Unavailable BERRIOS ., DR FELISA uJarez Admitting Unavailable BERRIOS ., DR FELISA Juarez Attending Unavailable BERRIOS ., DR FELISA Juarez Consulting Unavailable BERRIOS ., DR FELISA Juarez Primary Care Unavailable BERRIOS ., DR FELISA Juarez Admitting Unavailable BIB, DR ELIN Oliva Consulting Unavailable ELY, DR RACHEAL Ayala Admitting Unavailable ELY, DR RACHEAL Ayala Consulting Unavailable BERRIOS ., [...] FELISA Juarez Primary Care Unavailable WEST, DR RCAHEAL Ayala Consulting Unavailable WEST, DR RACHEAL Ayala Attending Unavailable WEST, DR RACHEAL Ayala Admjulio césar Unavailable WEST, DR RACHEAL Ayala Consulting Unavailable WEST, DR RACHEAL Ayala Admitting Unavailable BERRIOS ., DR FELISA Juarez [...] Admitting Unavailable HIGHLANDER, PETER D Attending Unavailable ANTONIODERZAFAR Consulting Unavailable BERRIOS ., DR FELISA Juarez [...] ., DR FELISA Juarez Primary Care Unavailable KATINAEBER, DR ELIN Oliva Consulting Unavailable HIGHLANDER, PETER D Consulting Unavailable BERRIOS ., DR FELISA Juarez Primary Care Unavailable HIGHLANDER, PETER D Admitting Unavailable HIGHLANDER, PETER D Attending Unavailable ZIEBER, DR ELIN Oliva Consulting Unavailable HIGHLANDER, PETER D Consulting Unavailable NELIDA ., CECY BLACKMON Consulting Unavailable JENNIFER II, ALEJANDRA Consulting Unavailable TYLER, YURI Consulting Unavailable KOTOSHIA, TONIO Consulting Unavailable BERRIOS ., DR FELISA Juarez [...] FELISA Juarez Attending Unavailable BERRIOS ., DR FLEISA Juarez Primary Care Unavailable BERRIOS ., DR [...] ., DR FELISA Juarez Primary Care Unavailable KATINAEBRONAK, DR ELIN Oliva Consulting Unavailable RUBEN ., [...] Unavailable BERRIOS, FELISA Juarez Primary Care Physician [phone] TULIO RUGGIERO Primary Care Physician Monik MCGUIRE, Tulio Unavailable Tulio Ruggiero MD Primary Care Provider [phone] TULIO RUGGIERO Attending Unavailable MONIK, TULIO Attending Unavailable MONIK, TULIO Attending Unavailable Erik ANNE, Daniele Kilgore Attending Unavailantonio Valencia DO, Daniele Kilgore Attending Unavailantonio e LIZ HERNANDEZ Attending Unavailable DAVID, LIZ Juarez Attending Unavailable LIZ HERNANDEZ Attending Unavailable Allergies Allergy Classification Reported Allergen(s) Allergy Type Date of Onset Reaction(s) Facility (3 sources) Acetaminophen / oxyCODONE Drug Allergy Unknown [facility] Other (11 sources) Acetaminophen / oxyCODONE; Translations: [OXYCODONE-ACETAM INOPHEN] Drug Allergy 3 Itching, Rash [facility] Repository (15 sources) oxyCODONE; Translations: [OXYCODONE] Drug Allergy 3 Hyperactive behavior (finding) [facility] Repository (1 source) Acetaminophen / oxyCODONE Drug Allergy [facility] Repository (1 source) oxyCODONE; Translations: [OxyCODONE Hydrochloride] Drug Allergy [facility] Repository Medications Current Medications Medication Drug Class(es) Dates Sig (Normalized) Sig (Original) allopurinol 300 mg oral tablet (10 sources) Xanthine Oxidase Inhibitor allopurinol (Zyloprim) 300 MG tablet 1 (one) time each day at the same time. Active atorvastatin 20 mg oral tablet (16 sources) HMG-CoA Reductase Inhibitor Start: 04-25-2020 take 1 tablet by mouth at bedtime atorvastatin (Lipitor) 20 MG tablet Indications: Dyslipidemia (CMS/HCC) Take 1 tablet (20 mg) by mouth at bedtime 90 tablet 3 09/30/2023 Active Atorvastatin Rafael cium Active baclofen 10 mg oral tablet (14 sources) gamma-Aminobutyric Acid-ergic Agonist Start: 11-17-2020 take 1 tablet by mouth at bedtime baclofen 10 mg Tab 10 mg = 1 tab(s), Oral, Bedtime, Refills(s) 0, Muscle pain Start Date: 11/17/20 Status: Ordered take 1 tablet by mouth at bedtim e baclofen (Lioresal) 20 MG tablet Take 1 tablet by mouth at bedtime. Active Baclofen Active colchicine 0.6 mg oral table t (16 sources) Start: 11-15-2020 colchicine 0.6 MG tablet [...] Status: Ordered diazePAM 10 mg oral tablet (10 sources) Benzodiazepine diazePAM (Valium ) 10 MG tablet Take by mouth every 8 (eight) hours if needed Active diclofenac sodium 50 mg delayed release oral tablet (14 sources) Nonsteroidal Anti-inflammatory Drug Start: 11-04-2023 diclofenac sodium 50 mg Oral EC Tab Refills(s) 0 Start Date: 11/04/23 Status: Ordered febuxostat 40 mg oral tablet (17 sources) Xanthine Oxidase Inhibitor Start: 08-09-2024 febuxostat (Uloric) 40 MG tablet Indications: Morbid obesity (CMS/HCC) , 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) , Type 2 diabetes mellitus with hyperglycemia, without long-term current use of insulin (CMS/HCC) TAKE 1 TABLET BY MOUTH EVERY DAY 90 tablet 3 08/09/2024 Active Start: 04-25-2020 End: 08-09-2024 febuxostat (Uloric) 40 MG ta blet Indications: Morbid obesity (CMS/HCC) , 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) , Type 2 diabetes mellitus with hyperglycemia, without long-term current use of insulin (CMS/HCC) TAKE 1 TABLET BY MOUTH EVERY DAY 90 tablet 3 08/06/2023 08/09/2024 Discontinued Febuxostat Activ e gabapentin 300 mg oral capsule (18 sources) Anti-epileptic Agent Start: 08-09-2024 take 1 capsule by mouth in the evening gabapentin (Neurontin) 300 MG capsule Indications: 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) TAKE 1 CAP BY MOUTH IN THE MORNING,1 CAP IN THE EVENING AND 1 CAP BEFORE BEDTIME 270 capsule 08/09/2024 Active Start: 11-15-2020 End: 08-09-2024 take 1 capsule by mouth in the evening gabapentin (Neurontin) 300 MG capsule Indications: 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) TAKE 1 CAP BY MOUTH IN THE MORNING,1 CAP IN THE EVENING AND 1 CAP BEFORE BEDTIME 270 capsule 04/09/2024 08/09/2024 Discontinued Gabapentin Activ e lisinopril 5 mg oral tablet (16 sources) Angiotensin Converting Enzyme Inhibitor Start: 06-07-2024 [...] hydrochloride 500 mg extended release oral tablet (16 sources) Biguanide Start: 06-07-2024 metFORMIN XR ( [...] Ozempic Active probenecid 500 mg oral tablet (14 sources) Start: 07-15-2024 take 1 tablet by [...] (Ozempic, 2 MG/DOSE,) 8 MG/3ML solution pen-injector (10 sources) Start: 08-26-2023 inject 2 mg by subcutaneous injection every week Semaglutide, 2 MG/DOSE, (Ozempic, 2 MG/DOSE,) 8 MG/3ML solution pen-injector Indications: Type 2 diabetes mellitus with hyperglycemia, without long-term current use of insulin ([facility]) Inject 2 mg under the skin 1 (one) time per week 9 mL 3 08/26/2023 Active Syringe/Needle, Disp, (B-D 3CC LUER-HERMINIO SYR 23GX1 ) 23G X 1 3 ML misc (10 sources) Start: 12-24-2023 Syringe/Needle, Disp, (B-D 3CC [...] 20mg/24hrs, # 20 tab(s), Refills(s) 3, Pharmacy: [facility]/pharmacy #[id number], 188, cm, 06/03/23 10:01:00 EST, Height/Length Dosing, 138, kg, 06/03/23 10:01:00 EST, Weight Dosing Start Date: 06/03/23 Status: Ordered 1 ml testosterone cypionate 200 mg/ml injection (11 sources) Androgen Start: 12-24-2023 End: 04-06-2024 testosterone [...] Status: Ordered tiZANidine 4 mg oral tablet (10 sources) Central alpha-2 Adrenergic Agonist take 1 tablet by mouth every six hours as needed tiZANidine (Zanaflex) 4 MG tablet Take 4 mg by mouth every 6 (six) hours if needed for muscle spasms Active traMADol hydrochloride 50 mg oral tablet (16 sources) Opioid Agonist Start: 06-03-2023 traMADOL 50 mg Tab Refills(s) 0 Start Date: 06/03/23 Status: Ordered traMADol HCl Act vitor traZODone hydrochloride 50 mg oral tablet (11 sources) Serotonin Reuptake Inhibitor Start: 06-24-2024 take [...] needed, # 2 tab(s), Refills(s) 0, Pharmacy: [facility]/pharmacy #[id number], 185.4, cm, 12/05/20 11:15:00 EDT, Height/Length Dosing, [...] Translations: [Kidney stone] Onset: 2 Episodic Cataract (20 sources) Bilateral age-related nuclear cataracts; Translations: [Age-related [...] Onset: 2 Chronic Disorders of lipid metabolism (16 sources) Mixed hyperlipidemia; Translations: [Pure hypercholesterolemia, unspecified] Onset: 3 Chronic Disorders of teeth and jaw (1 source) 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; Translations: [ADHESIONS AND ANKYLOSIS LEFT TMJ] Onset: 3 Episodic Essential hypertension (3 sources) Essential (primary) hypertension; Translations: [Essential (primary) hypertension] Onset: 3 Chronic Genitourinary symptoms and ill-defined conditions (3 sources) Nocturia 04-25-2020 Episodic Gout and other crystal arthropathies (17 sources) Gout, unspecified; Translations: [Gouty arthropathy] Onset: 2 Chronic Hepatitis (4 sources) Steatohepatitis; Translations: [Nonalcoholic steatohepatitis (HODGES)] Onset: 1 Resolved: 1 Chronic Hyperplasia of prostate (8 sources) Benign prostatic hypertrophy with outflow obstruction; Translations: [Benign prostatic hyperplasia with lower urinary tract symptoms] Onset: 3 Chronic Miscellaneous mental health disorders (10 sources) Primary insomnia; Translations: [Primary insomnia] Onset: 4 01-12-2024 Chronic Neoplasms of unspecified nature or uncertain behavior (3 sources) 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 11-30-2020 Episodic Osteoarthritis (20 sources) Arthritis of right knee; Translations: [Unilateral primary osteoarthritis, right knee] Onset: 2 Resolved: 2 Chronic Other aftercare (1 source) prison (current) use of oral hypoglycemic drugs; Translations: [SHELTER USE ORAL HYPOGLYCEMIC DX] Onset: 3 Episodic Other aftercare (1 source) Other exterminator helper termite (current) drug therapy; Translations: [OTH SHELTER CURRENT DRUG THERAPY] Onset: 3 Episodic Other aftercare (3 sources) Long-term current use of anticoagulant 11-17-2020 Episodic Other aftercare (4 sources) Long-term current use of drug therapy; Translations: [Other exterminator helper termite (current) drug therapy] Onset: 5 08-05-2024 Episodic Other and unspecified benign neoplasm (3 [...] hypofunction] Onset: 3 Chronic Other endocrine disorders (14 sources) Male hypogonadism; Translations: [Testicular hypofunction] Onset: 3 06-03-2023 Chronic Other liver diseases (3 sources) Lesion of liver; Translations: [Liver disease, unspecified] Chronic Other liver diseases (1 source) Fatty (change of) liver, not elsewhere classified; Translations: [FATTY CHANGE LIVER NEC] Onset: 3 Chronic Other liver diseases (10 sources) Non-alcoholic fatty liver; Translations: [Fatty (change [...] Chronic Other nutritional; endocrine; and metabolic disorders (7 sources) Morbid obesity; Translations: [Morbid (severe) obesity due to excess calories] Onset: 3 04-13-2019 Chronic Other nutritional; endocrine; and metabolic disorders (10 sources) Severe obesity; Translations: [Class 2 severe obesity due to excess calories with serious comorbidity and body mass index (BMI) of 37.0 to 37.9 in adult ([facility])] Onset: 3 07-15-2024 Chronic Other screening for suspected conditions (not mental disorders or infectious disease) (10 sources) Encounter for screening for malignant neoplasm of prostate; Translations: [Screening for malignant neoplasm done] Onset: 3 Episodic Other skin disorders (1 source) Corns and callosities; Translations: [CORNS AND CALLOSITIES] Onset: 3 Episodic Other upper respiratory disease (10 sources) Allergic rhinitis due to pollen; Translations: [...] APNEA] Onset: 3 Chronic Residual codes; unclassified (10 sources) Obstructive sleep apnea syndrome; Translations: [Obstructive [...] Spondylosis; intervertebral disc disorders; other back problems (17 sources) Spondylosis without myelopathy or radiculopathy, lumbar [...] Test Name Value Interpretation Reference Range Facility ALL TYPE AND SCREENon 2024 ABO and Rh group Nom (Bld) Blood group B Rh(D) positive [facility] ALL TYPE AND SCREENon 2024 ABO and Rh group Nom (Bld) Blood group B Rh(D) positive [facility] XR Knee Standing AP Bilatera nikko 07-27-2024 [...] Electronically Signed in Other Vendor System) Normal [facility] MRI Knee Surg.Navigate or Pl an ONLY [...] the left knee. Final Dictated by: Willie Joseph MD Dictated DT/TM: 07/23/2024 9:46 am Signed by: Willie Joseph MD Signed (Electronic Signature): 07/23/2024 9:48 am (If Report Is Signed, Electronically Signed in Other Vendor System) Normal [facility] XR Knee 1 or 2 Views Lefton [...] Electronically Signed in Other Vendor System) Normal [facility] ALL CBC WITH AUTO DIFFon BASOPHILS ABSOLUTE AUTO 0.1 [facility] Basophils/100 WBC (Bld) 0.9 % 0.2 - 2.0 % [facility] Eosinophils/100 WBC (Bld) 4.9 % 0.9 - 7.0 % [facility] Erythrocyte distribution width (RBC) [Ratio] 13.7 % 11.0 - 15.0 % [facility] Hematocrit (Bld) [Volume fraction] 44.7 % 42.0 - 54.0 % [facility] Hemoglobin (Bld) [Mass/Vol] 14.9 g/dL 14.0 - 18.0 g/dL [facility] IMMATURE GRANULOCYTES ABS AUTO 0.02 [facility] Immature granulocytes/100 WBC (Bld) 0.3 % 0.0 - 0.5 % [facility] Interpretation and review of laboratory results Abnormal [facility] LYMPHOCYTES ABSOLUTE AUTO 1.5 [facility] Lymphocytes/100 WBC (Bld) 23 % 20.5 - 60.0 % [facility] MCH (RBC) [Entitic mass] 32.3 pg 25.9 - 34.0 pg [facility] MCHC (RBC) [Mass/Vol] 33.3 g/dL 29.9 - 35.2 g/dL [facility] MCV (RBC) [Entitic vol] 97 fL High 80.0 - 94.0 fL [facility] MONOCYTES ABSOLUTE AUTO 0.5 [facility] Monocytes/100 WBC (Bld) 7.9 % 1.7 - 12.0 % [facility] NEUTROPHILS ABSOLUTE AUTO 4.1 [facility] Neutrophils/100 WBC (Bld) 63 % 43.0 - 75.0 % [facility] Platelet mean volume (Bld) [Entitic vol] 8.8 fL Low 9.5 - 13.5 fL [facility] EO # 0.3 [facility] TB PLT 226 [facility] RBC 4.61 Low [facility] TB WBC 6.6 [facility]H UA (CLEAN/CATCH) INFORMATION MANAGEMENT MANAGER/AMBROSE RO IF IND.on 07-20-2024 BILIRUBIN URINE Negative NEGATIVE [facility] BLOOD URINE Negative NEGATIVE [facility] Clarity (U) CLEAR CLEAR [facility] Color (U) LT. YELLOW YELLOW [facility] GLUCOSE URINE UA Negative NEGATIVE mg/dL [facility] Ketones Ql (U) Negative NEGATIVE mg/dL [facility] Leukocyte esterase Test strip Ql (U) Negative NEGATIVE [facility] NITRITE URINE Negative NEGATIVE [facility] pH (U) 6.0 [pH] 5.0 - 9.0 [facility] PROTEIN URINE Negative NEG/TRACE mg/dL [facility] SPECIFIC GRAVITY URINE 1.025 1.005 - 1.025 [facility] URINE MICROSCOPIC INDICATED NO [facility] UROBILINOGEN URINE 0.2 EU/dL 0.2 - 1.0 EU/dL [facility] Reminderson 06-15-2024 Reminders Reminders From: Cyndi Montano To: EU - Administrative; Sent: 06/04/2024 12:06:06 EST Show up: 06/04/2024 12:05:00 EST Subject: Ambulatory Reminder Due Date/Time: 05/28/2025 12:05:00 EST Reminder/Recall Patient needs scheduled for a 1 yr f/u, PCP to check PSA. Due back in 06/07 LVM to call and schedule Normal [facility] Urology Office/Clinic Noteon 05-27-2024 Urology [...] E&M of Est. Patient Moderate 30-39 Min 04821 Influenza immunization status assessed 1030F Medication list [...] E&M of Est. Patient Moderate 30-39 Min 33421 3. Hypogonadism male (E29.1: Testicular hypofunction) Managed by PCP. On T injections. Ordered: Complex E&M Add on G2211 E&M of Est. Patient Moderate 30-39 Min 75500 4. ED (erectile dysfunction) (N52.9: Male erectile dysfunction, unspecified) Failed Tadalafil. A lot of neuropathy. Not interested in additional tx. Ordered: Complex E&M Add on G2211 E&M of Est. Patient Moderate 30-39 Min 34172 Follow-up With When Contact Information LIZ HERNANDEZ PA-C, URL Within 1 year Additional Instructions: Patient Education Kidney Stones, Zbam-es-Ukby Problem List/Past Medical History Ongoing Abnormal abdominal [...] urinary obstructio (more content not included)... Normal [facility] Comment on above: Result Comment: Elec tronically Signed By: LIZ HERNANDEZ PA-C\.br\Date and Time Signed: 05/27/24 09:57 EST [facility] 11-05-2023 Screens [id number]. 00TIFF Normal [facility] Screens [id number]. 00TIFF [facility] Patient Educationon 11-04-19 Patient Education Urology [...] these instructions at home: Medicines ? Take [id number]-[id number] and prescription medicines only as told by [...] include cig (more content not included)... Normal [facility] Urology Office/Clinic Noteon 11-04-2023 Urology [...] E&M of Est. Patient Moderate 30-39 Min 92866 3. Kidney calculi (N20.0: Calculus of kidney) [...] E&M of Est. Patient Moderate 30-39 Min 92652 XR Abdomen 1 View 4. BPH with [...] E&M of Est. Patient Moderate 30-39 Min 19768 Influenza immunization status assessed 1030F Medication list [...] E&M of Est. Patient Moderate 30-39 Min 06123 Follow-up With When Contact Information DAVID PALIZ Ortiz, URL [address] [place] [address] [phone] Additional Instructions: 6 mos w/ KUB Patient Education Erectile Dysfunction Documentation recorded by the scribchris Burr accurately [...] cancer in father History of pulmonary embolism [place] (more content not included)... Normal [facility] Comment on above: Result Comment: Elec tronically Signed By: LIZ HERNANDEZ PA-C\.br\Date and Time Signed: 11/04/23 10:26 EDT\.br\Electronically Co-Signed By: Maru Burr\.br\Date and Time Co-Signed: 11/04/23 09:31 EDT Lab Report[facility] 10-27-2023 Lab Reports [id number] 0TIFF Normal [facility] XR LSPINE W_OBLS AND FLEX_EX [...] by: RACHEAL GRAVES Date: 2022-12-05 09:46 Normal [facility] CBC AUTO DIFFon 10-21-2022 BASO # 0.1 103/ul Normal 0.0-0.1 [facility] Comment on above: Performed By: #### P OCGLUC #### [facility] [address] [address] [address] Juliet Gracía Basophils/100 WBC (Bld) 0.7 % Normal 0.2-2.0 [facility] Comment on above: Performed By: #### P OCGLUC #### [facility] [address] [address] [address] Juliet García EO # 0.4 103/ul Normal 0.0-0.7 [facility] Comment on above: Performed By: #### P OCGLUC #### [facility] [address] [place] [address] Dr. Juliet García Eosinophils/100 WBC (Bld) 5.3 % Normal 0.9-7.0 [facility] Comment on above: Performed By: #### P OCGLUC #### [facility] [address] [place] [address] Dr. Juliet García Erythrocyte distribution width (RBC) [Ratio] 14.0 % Normal 11.0-15.0 [facility] Comment on above: Performed By: #### P OCGLUC #### [facility] [address] [place] [address] Dr. Juliet García Hematocrit (Bld) [Volume fraction] 43.6 % Normal 42.0-54.0 [facility] Comment on above: Performed By: #### P OCGLUC #### [facility] [address] [place] [address] Dr. Juliet García Hemoglobin (Bld) [Mass/Vol] 14.9 g/dL Normal 14.0-18.0 [facility] Comment on above: Performed By: #### P OCGLUC #### [facility] [address] [place] [address] Dr. Juliet García IG # 0.03 10e3/ul Normal 0.00-0.03 [facility] Comment on above: Performed By: #### P OCGLUC #### [facility] [address] [address] [address] Juliet García IG % 0.4 % Normal 0.0-0.5 [facility] Comment on above: Performed By: #### P OCGLUC #### [facility] [address] [place] [address] Dr. Juliet García LYMPH # 2.0 103/ul Normal 1.2-3.8 [facility] Comment on above: Performed By: #### P OCGLUC #### [facility] [address] [address] [address] Juliet García Lymphocytes/100 WBC (Bld) 29.3 % Normal 20.5-60.0 [facility] Comment on above: Performed By: #### P OCGLUC #### [facility] [address] [place] [address] Dr. Juliet García MANUAL DIFF REQ NO Normal [facility] Comment on above: Performed By: #### P OCGLUC #### [facility] [address] [address] [address] Juliet García MCH (RBC) [Entitic mass] 33.4 pg Normal 25.9-34.0 [facility] Comment on above: Performed By: #### P OCGLUC #### [facility] [address] [place] [address] Dr. Juliet García MCHC (RBC) [Mass/Vol] 34.2 g/dL Normal 29.9-35.2 [facility] Comment on above: Performed By: #### P OCGLUC #### [facility] [address] [place] [address] Dr. Juliet García MCV (RBC) [Entitic vol] 97.8 fL Critically high 80.0-94.0 [facility] Comment on above: Performed By: #### P OCGLUC #### [facility] [address] [place] [address] Dr. Juliet García MONO # 0.7 103/ul Normal 0.3-0.8 [facility] Comment on above: Performed By: #### P OCGLUC #### [facility] [address] [place] [address] Dr. Juliet García Monocytes/100 WBC (Bld) 9.9 % Normal 1.7-12.0 [facility] Comment on above: Performed By: #### P OCGLUC #### [facility] [address] [address] [address] Juliet García NEUT # 3.7 103/ul Normal 1.4-6.5 [facility] Comment on above: Performed By: #### P OCGLUC #### [facility] [address] [address] [address] Juliet García Neutrophils/100 WBC (Bld) 54.4 % Normal 43.0-75.0 [facility] Comment on above: Performed By: #### P OCGLUC #### [facility] [address] [place] [address] Dr. Juliet García Platelet mean volume (Bld) [Entitic vol] 9.0 fL Critically low 9.5-13.5 [facility] Comment on above: Performed By: #### P OCGLUC #### [facility] [address] [address] [address] Juliet García PLT 211 103/ul Normal 150-450 [facility] Comment on above: Performed By: #### P OCGLUC #### [facility] [address] [place] [address] Dr. Juliet García RBC 4.46 106/ul Critically low 4.70-6.10 [facility] Comment on above: Performed By: #### P OCGLUC #### [facility] [address] [address] [address] Juliet García WBC 6.8 103/ul Normal 4.0-11.0 [facility] Comment on above: Performed By: #### P OCGLUC #### [facility] [address] [address] [address] Juliet García POINT OF CARE GLUCOSEon 10-12 Glucose [Mass/Vol] 100 mg/dL Normal 74-106 [facility] Comment on above: Performed By: #### P OCGLUC #### [facility] [address] [address] [address] Juliet García Glucose [Mass/Vol] 94 mg/dL Normal 74-106 [facility] Comment on above: Performed By: #### A 1C #### [facility] [address] [address] [address] Juliet García PROF CHEM 8 (BAS METB)on Anion gap [Moles/Vol] 14.0 mmol/L Normal [facility] Comment on above: Performed By: #### B MP #### [facility] [address] [address] [address] Juliet Gracía Calcium [Mass/Vol] 9.0 mg/dL Normal 8.5-10.1 [facility] Comment on above: Performed By: #### B MP #### [facility] [address] [address] [address] Juliet García Chloride [Moles/Vol] 107 mmol/L Normal 98-107 [facility] Comment on above: Performed By: #### B MP #### [facility] [address] [address] [address] Juliet García CO2 [Moles/Vol] 28.7 mmol/L Normal 21.0-32.0 [facility] Comment on above: Performed By: #### B MP #### [facility] [address] [address] [address] Juliet García Creatinine [Mass/Vol] 1.41 mg/dL Critically high 0.70-1.30 [facility] Comment on above: Performed By: #### B MP #### [facility] [address] [place] [address] Dr. Juliet García EGFR-AF TOGOLESE >60 Normal >=60 [facility] Comment on above: Performed By: #### B MP #### [facility] [address] [address] [address] Juliet García EGFR-NON AF TOGOLESE 50 mL/min/1.73m2 Critically low >=60 [facility] Comment on above: Performed By: #### B MP #### [facility] [address] [address] [address] Juliet García Glucose [Mass/Vol] 95 mg/dL Normal 74-106 [facility] Comment on above: Performed By: #### B MP #### [facility] [address] [address] [address] Juliet García Potassium [Moles/Vol] 4.7 mmol/L Normal 3.5-5.1 [facility] Comment on above: Performed By: #### B MP #### [facility] [address] [address] [address] Juliet García Sodium [Moles/Vol] 145 mmol/L Normal 136-145 [facility] Comment on above: Performed By: #### B MP #### [facility] [address] [address] [address] Juliet García Urea nitrogen [Mass/Vol] 25.0 mg/dL Critically high 7.0-18.0 [facility] Comment on above: Performed By: #### B MP #### [facility] [address] [address] [address] Juliet García Urea nitrogen/Creatinine [Mass ratio] 17.7 mg/mg Normal [facility] Comment on above: Performed By: #### B MP #### [facility] [address] [address] [address] Juliet García Office Visiton 07-31-2022 Follow-up visit [id number] Carlos Locke 1955 M Date Provider Department Center 07/31/2022 [facility]ENTLEY MENDO[facility] Family History Problem Relation Age of Onset Stroke Father Family Status - Relation Status Age at Father Level of Service:30260 [place] OFFICE/OUTPATIENT ESTABLISHED MOD MDM 30-39 MIN Reason for Visit and Comments: Hyperlipidemia [182] Hypertension [781904] history of PE [Other] Normal [facility] CULTURE WOUNDon 07-24-2022 CULTURE WOUND Culture Observations : No growth of anaerobes at 72 hours. Isolate 1 Stenotrophomonas maltophilia Moderate growth of ORGANISM 1 Stenotrophomonas maltophilia ANTIBIOTIC M.I.C RX STATUS Levofloxacin 1 S F Trimethoprim/Sulfameth oxazole <=20 S F Normal [facility] Comment on above: Performed By: #### W OUNDCX ####[facility] [address] [place], [place] [address]PgDr. Juliet García GLYCOHEMOGLOBIN A1Con 2022 ADA RECOMMENDATION SEE BELOW Normal [facility] Comment on above: Result Comment: ADA RECOMMENDED LIMIT 4.0 - 6.0 ADA THERAPEUTIC TARGET < 7.0 ACTION SUGGESTED > 7.0 Performed By: #### A 1C #### [facility] [address] [place], [place] [address] Dr. Juliet García Glucose [Mass/Vol] 111 mg/dL Normal [facility] Comment on above: Performed By: #### A 1C #### [facility] [address] [address] [address] Juliet García HbA1c (Bld) [Mass fraction] 5.5 % Normal 4.5-6.2 [facility] Comment on above: Performed By: #### A 1C #### [facility] [id number] Juliet García ECHOCARDIO M/2D COMPLETEon 1 08-29-2021 ECHOCARDIO M/2D COMPLETE Patient: CARLOS LOCKE Exam Date: 06/28/2022 : 1955 Gender:M Ordering : DR LOLY BARNARD M.D. Admission #: [id number] Family : Order #: [id number] CLICK HERE TO VIEW EXAM ECHOCARDIOGRAM REPORT [...] M.D. on 07/04/2022 at 13:38 Normal [facility] URIC ACID SERUMon 06-10-2022 Urate [Mass/Vol] 6.9 mg/dL Normal 3.5-7.2 [facility] Comment on above: Performed By: #### A 1C #### [facility] [address] [place] [address] Dr. Juliet García XR KUB 1 VIEWon [...] RACHEAL GRAVES Date: 2022-05-28 07:31 Normal [facility] CBC AUTO DIFFon 05-03-2022 BASO # 0.1 103/ul Normal 0.0-0.1 [facility] Comment on above: Performed By: #### C BC #### [facility] [address] [place] [address] Dr. Juliet García Basophils/100 WBC (Bld) 0.9 % Normal 0.2-2.0 [facility] Comment on above: Performed By: #### C BC #### [facility] [address] [place] [address] Dr. Juliet García EO # 0.4 103/ul Normal 0.0-0.7 [facility] Comment on above: Performed By: #### C BC #### [facility] [address] [place] [address] Dr. Juliet García Eosinophils/100 WBC (Bld) 5.2 % Normal 0.9-7.0 [facility] Comment on above: Performed By: #### C BC #### [facility] [address] [place] [address] Dr. Juliet García Erythrocyte distribution width (RBC) [Ratio] 13.6 % Normal 11.0-15.0 [facility] Comment on above: Performed By: #### C BC #### [facility] [address] [place] [address] Dr. Juliet García Hematocrit (Bld) [Volume fraction] 40.5 % Critically low 42.0-54.0 [facility] Comment on above: Performed By: #### C BC #### [facility] [address] [place] [address] Dr. Juliet García Hemoglobin (Bld) [Mass/Vol] 13.7 g/dL Critically low 14.0-18.0 [facility] Comment on above: Performed By: #### C BC #### [facility] [address] [place] [address] Dr. Juliet García IG # 0.02 10e3/ul Normal 0.00-0.03 [facility] Comment on above: Performed By: #### C BC #### [facility] [address] [place] [address] Dr. Juliet García IG % 0.3 % Normal 0.0-0.5 [facility] Comment on above: Performed By: #### C BC #### [facility] [address] [place] [address] Dr. Juliet García LYMPH # 1.9 103/ul Normal 1.2-3.8 [facility] Comment on above: Performed By: #### C BC #### [facility] [address] [place] [address] Dr. Juliet García Lymphocytes/100 WBC (Bld) 27.7 % Normal 20.5-60.0 [facility] Comment on above: Performed By: #### C BC #### [facility] [address] [place] [address] Dr. Juliet García MANUAL DIFF REQ NO Normal [facility] Comment on above: Performed By: #### C BC #### [facility] [address] [place] [address] Dr. Juliet García MCH (RBC) [Entitic mass] 33.3 pg Normal 25.9-34.0 [facility] Comment on above: Performed By: #### C BC #### [facility] [address] [place] [address] Dr. Juliet García MCHC (RBC) [Mass/Vol] 33.8 g/dL Normal 29.9-35.2 [facility] Comment on above: Performed By: #### C BC #### [facility] [address] [place] [address] Dr. Juliet García MCV (RBC) [Entitic vol] 98.3 fL Critically high 80.0-94.0 [facility] Comment on above: Performed By: #### C BC #### [facility] [address] [place] [address] Dr. Juliet García MONO # 0.7 103/ul Normal 0.3-0.8 [facility] Comment on above: Performed By: #### C BC #### [facility] [address] [place] [address] Dr. Juliet García Monocytes/100 WBC (Bld) 9.9 % Normal 1.7-12.0 [facility] Comment on above: Performed By: #### C BC #### [facility] [address] [place] [address] Dr. Juliet García NEUT # 3.8 103/ul Normal 1.4-6.5 [facility] Comment on above: Performed By: #### C BC #### [facility] [address] [place] [address] Dr. Juliet García Neutrophils/100 WBC (Bld) 56.0 % Normal 43.0-75.0 [facility] Comment on above: Performed By: #### C BC #### [facility] [address] [place] [address] Dr. Juliet García Platelet mean volume (Bld) [Entitic vol] 9.0 fL Critically low 9.5-13.5 [facility] Comment on above: Performed By: #### C BC #### [facility] [address] [place] [address] Dr. Juliet García PLT 201 103/ul Normal 150-450 [facility] Comment on above: Performed By: #### C BC #### [facility] [address] [address] [address] Juliet García RBC 4.12 106/ul Critically low 4.70-6.10 [facility] Comment on above: Performed By: #### C BC #### [facility] [address] [address] [address] Juliet García WBC 6.7 103/ul Normal 4.0-11.0 [facility] Comment on above: Performed By: #### C BC #### [facility] [address] [address] [address] Juliet García GLYCOHEMOGLOBIN A1Con 2021 ADA RECOMMENDATION SEE BELOW Normal [facility] Comment on above: Result Comment: ADA RECOMMENDED LIMIT 4.0 - 6.0 ADA THERAPEUTIC TARGET < 7.0 ACTION SUGGESTED > 7.0 Performed By: #### A 1C #### [facility] [address] [address] [address] Juliet García Glucose [Mass/Vol] 108 mg/dL Normal [facility] Comment on above: Performed By: #### A 1C #### [facility] [address] [place] [address] Dr. Juliet García HbA1c (Bld) [Mass fraction] 5.4 % Normal 4.5-6.2 [facility] Comment on above: Performed By: #### A 1C #### [facility] [address] [place] [address] Dr. Juliet García LIPID PROFILEon 05-03-2022 CHOL-HDL RATIO NORM SEE BELOW Normal [facility] Comment on above: Result Comment: 3.3 - 4.4 LOW RISK 4.4 - 7.1 AVERAGE RISK 7.1 - 11.0 MODERATE RISK >11.0 HIGH RISK Performed By: #### L IPID, CMP #### [facility] [address] [place] [address] Dr. Juliet García Cholesterol [Mass/Vol] 154 mg/dL Normal <=200 [facility] Comment on above: Performed By: #### L IPID, CMP #### [facility] [address] [address] [address] Juliet García Cholesterol in HDL [Mass/Vol] 29 mg/dL Critically low 40-60 [facility] Comment on above: Performed By: #### L IPID, CMP #### [facility] [address] [address] [address] Juliet García Cholesterol in LDL [Mass/Vol] 64.2 mg/dL Normal [facility] Comment on above: Performed By: #### L IPID, CMP #### [facility] [address] [address] [address] Juliet García Cholesterol.total/Ch olesterol in HDL [Mass ratio] 5.3 {ratio} Normal [facility] Comment on above: Performed By: #### L IPID, CMP #### [facility] [address] [place] [address] Dr. Juliet García HDL NORMAL > or = 60 mg/dl - LO W CARDIOVASCULAR RISK <40 mg/dl - HIGH CARDIOVASCULAR RISK Normal [facility] Comment on above: Performed By: #### L IPID, CMP #### [facility] [address] [address] [address] Juliet García LDL CALC NORMAL SEE BELOW Normal [facility] Comment on above: Result Comment: <100 mg/dl OPTIMAL 100 - 129 mg/dl NEAR OR ABOVE OPTIMAL 130 - 159 mg/dl BORDERLINE HIGH 160 - 189 mg/dl HIGH >190 mg/dl VERY HIGH Performed By: #### L IPID, CMP #### [facility] [address] [address] [address] Juliet García Triglyceride [Mass/Vol] 304 mg/dL Critically high <=150 [facility] Comment on above: Performed By: #### L IPID, CMP #### [facility] [address] [address] [address] Juliet García VLDL CALC 60.8 mg/dL Normal [facility] Comment on above: Performed By: #### L IPID, CMP #### [facility] [address] [address] [address] Juliet García PROF 14(COMP METB)on 022 Albumin [Mass/Vol] 3.7 g/dL Normal 3.4-5.0 [facility] Comment on above: Performed By: #### L IPID, CMP #### [facility] [address] [address] [address] Juliet García Albumin/Globulin [Mass ratio] 1.1 {ratio} Normal [facility] Comment on above: Performed By: #### L IPID, CMP #### [facility] [address] [address] [address] Juliet García ALP [Catalytic activity/Vol] 87 U/L Normal 46-116 [facility] Comment on above: Performed By: #### L IPID, CMP #### [facility] [address] [address] [address] Juliet García ALT [Catalytic activity/Vol] 52 U/L Normal 16-63 [facility] Comment on above: Performed By: #### L IPID, CMP #### [facility] [address] [address] [address] Juliet García Anion gap [Moles/Vol] 11.5 mmol/L Normal [facility] Comment on above: Performed By: #### L IPID, CMP #### [facility] [address] [address] [address] Juliet García AST [Catalytic activity/Vol] 27 U/L Normal 15-37 [facility] Comment on above: Performed By: #### L IPID, CMP #### [facility] [address] [address] [address] uJliet García Bilirubin [Mass/Vol] 0.4 mg/dL Normal 0.2-1.0 [facility] Comment on above: Performed By: #### L IPID, CMP #### [facility] [address] [address] [address] Juliet García Calcium [Mass/Vol] 8.7 mg/dL Normal 8.5-10.1 [facility] Comment on above: Performed By: #### L IPID, CMP #### [facility] [address] [address] [address] Juliet García Chloride [Moles/Vol] 106 mmol/L Normal 98-107 [facility] Comment on above: Performed By: #### L IPID, CMP #### [facility] [address] [place] [address] Dr. Juliet García CO2 [Moles/Vol] 28.2 mmol/L Normal 21.0-32.0 [facility] Comment on above: Performed By: #### L IPID, CMP #### [facility] [address] [place] [address] Dr. Juliet García Creatinine [Mass/Vol] 1.21 mg/dL Normal 0.70-1.30 [facility] Comment on above: Performed By: #### L IPID, CMP #### [facility] [address] [place] [address] Dr. Juliet García EGFR-AF TOGOLESE >60 Normal >=60 [facility] Comment on above: Performed By: #### L IPID, CMP #### [facility] [address] [place] [address] Dr. Juliet García EGFR-NON AF TOGOLESE =60 Normal >=60 [facility] Comment on above: Performed By: #### L IPID, CMP #### [facility] [address] [place] [address] Dr. Juliet García Globulin (S) [Mass/Vol] 3.4 g/dL Normal [facility] Comment on above: Performed By: #### L IPID, CMP #### [facility] [address] [place] [address] Dr. Juliet García Glucose [Mass/Vol] 100 mg/dL Normal 74-106 [facility] Comment on above: Performed By: #### L IPID, CMP #### [facility] [address] [place] [address] Dr. Juliet García Potassium [Moles/Vol] 4.7 mmol/L Normal 3.5-5.1 [facility] Comment on above: Performed By: #### L IPID, CMP #### [facility] [address] [address] [address] Juliet García Protein [Mass/Vol] 7.1 g/dL Normal 6.4-8.2 [facility] Comment on above: Performed By: #### L IPID, CMP #### [facility] [address] [address] [address] Juliet García Sodium [Moles/Vol] 141 mmol/L Normal 136-145 [facility] Comment on above: Performed By: #### L IPID, CMP #### [facility] [address] [place] [address] Dr. Juliet García Urea nitrogen [Mass/Vol] 23.0 mg/dL Critically high 7.0-18.0 [facility] Comment on above: Performed By: #### L IPID, CMP #### [facility] [address] [address] [address] Juliet García Urea nitrogen/Creatinine [Mass ratio] 19.0 mg/mg Normal [facility] Comment on above: Performed By: #### L IPID, CMP #### [facility] [address] [place] [address] Dr. Juliet García VC CONSULT FOLLOWUPon 2021 VC CONSULT FOLLOWUP Patient: CARLOS LOCKE Exam Date: 04/08/2022 : 1955 Gender:M Ordering : DR RACHEAL GRAVES M.D. Admission #: [id number] Family : Order #: [id number] CLICK HERE [...] Graves MD on 04/08/2022 at 11:30 Normal [facility] VC EXT VENOUS RT LIMITEDon 0 04-08-2022 VC EXT VENOUS RT LIMITED Patient: CARLOS LOCKE Exam Date: 04/08/2022 : 1955 Gender:M Ordering : DR RACHEAL GRAVES M.D. Admission #: [id number] Family : Order #: [id number] CLICK HERE TO VIEW EXAM RADIOLOGY REPORT [...] Graves MD on 04/08/2022 at 11:31 Normal [facility] VC INJ FOAM SCLERO W US MLTI on 04-03-2022 VC INJ FOAM SCLERO W US MLTI Patient: CARLOS LOCKE Exam Date: 04/03/2022 : 1955 Gender:M Ordering : DR RACHEAL GRAVES M.D. Admission #: [id number] Family : DR NATHALY BOONE . Order #: [id number] CLICK HERE TO VIEW EXAM RADIOLOGY REPORT [...] hours, av (more content not included)... Normal [facility] VC CONSULT FOLLOWUPon 2021 VC CONSULT FOLLOWUP Patient: CARLOS LOCKE Exam Date: 03/25/2022 : 1955 Gender:M Ordering : DR RACHEAL GRAVES M.D. Admission #: [id number] Family : Order #: [id number] CLICK HERE TO VIEW EXAM RADIOLOGY REPORT [...] Elin Kenny M.D. on 03/25/2022 at 08:41 [facility] VC EXT VENOUS RT LIMITEDon 0 03-25-2022 VC EXT VENOUS RT LIMITED Patient: CARLOS LOCKE Exam Date: 03/25/2022 : 1955 Gender:M Ordering : DR RACHEAL GRAVES M.D. Admission #: [id number] Family : Order #: [id number] CLICK HERE TO VIEW EXAM RADIOLOGY REPORT [...] Kenny M.D. on 03/25/2022 at 08:39 Normal [facility] VC ENDOVENOUS ABL 1ST V RTon 03-19-2022 VC ENDOVENOUS ABL 1ST V RT Patient: CARLOS LOCKE Exam Date: 03/19/2022 : 1955 Gender:M Ordering : DR RACHEAL GRAVES M.D. Admission #: [id number] Family : Order #: [id number] CLICK HERE TO VIEW EXAM RADIOLOGY REPORT [...] Racheal Graves MD on 03/19/2022 at 08:58 [facility] CONSULT FOLLOWUPon 2021 VC CONSULT FOLLOWUP Patient: CARLOS LOCKE. Exam Date: 02/18/2022 : 1955 Gender:M Ordering : DR RACHEAL GRAVES M.D. Admission #: [id number] Family : Order #: [id number] CLICK HERE TO VIEW EXAM RADIOLOGY REPORT [...] MD on 02/18/2022 at 09:45 Normal [facility] VC EXT VENOUS LT LIMITEDon 0 02-18-2022 VC EXT VENOUS LT LIMITED Patient: CARLOS LOCKE. Exam Date: 02/18/2022 : 1955 Gender:M Ordering : DR RACHEAL GRAVES M.D. Admission #: [id number] Family : Order #: [id number] CLICK HERE TO VIEW EXAM RADIOLOGY REPORT [...] varicose veins remain off of SSV and card hanger mid posterior calf. *Exam performed in accordance with [facility] practice guidelines- Peripheral venous ultrasound, October 07, 2009. 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 Admission #: [id number] Family : Order #: [id number] CLICK HERE TO VIEW EXAM RADIOLOGY REPORT [...] M.D. on 02/13/2022 at 10:15 Normal [facility] VC CONSULT FOLLOWUPon 2021 VC CONSULT FOLLOWUP Patient: CARLOS LOCKE Exam Date: 02/06/2022 : 1955 Gender:M Ordering : DR RACHEAL GRAVES M.D. Admission #: [id number] Family : Order #: [id number] CLICK HERE TO VIEW EXAM RADIOLOGY REPORT [...] Kenny M.D. on 02/06/2022 at 09:53 Normal [facility] VC EXT VENOUS LT LIMITEDon 0 02-06-2022 VC EXT VENOUS LT LIMITED Patient: CARLOS LOCKE Exam Date: 02/06/2022 : 1955 Gender:M Ordering : DR RACHEAL GRAVES M.D. Admission #: [id number] Family : Order #: [id number] CLICK HERE TO VIEW EXAM RADIOLOGY REPORT [...] Kenny M.D. on 02/06/2022 at 09:49 Normal [facility] GLYCOHEMOGLOBIN A1Con 2021 ADA RECOMMENDATION SEE BELOW Normal [facility] Comment on above: Result Comment: ADA RECOMMENDED LIMIT 4.0 - 6.0 ADA THERAPEUTIC TARGET < 7.0 ACTION SUGGESTED > 7.0 Performed By: #### A 1C #### [facility] [address] [place] [address] Dr. Juliet García Glucose [Mass/Vol] 108 mg/dL Normal [facility] Comment on above: Performed By: #### A 1C #### [facility] [address] [address] [address] Juliet García HbA1c (Bld) [Mass fraction] 5.4 % Normal 4.5-6.2 [facility] Comment on above: Performed By: #### A 1C #### [facility] [address] [address] [address] Juliet García PROF 14(COMP METB)on 022 Albumin [Mass/Vol] 4.0 g/dL Normal 3.4-5.0 [facility] Comment on above: Performed By: #### C MP ####[facility] [address] [address]DrRusty García Albumin/Globulin [Mass ratio] 1.2 {ratio} Normal [facility] Comment on above: Performed By: #### C MP ####[facility] [address] [address]Dr. Juliet García ALP [Catalytic activity/Vol] 89 U/L Normal 46-116 [facility] Comment on above: Performed By: #### C MP ####[facility] [address] [address]DrRusty García ALT [Catalytic activity/Vol] 81 U/L Critically high 16-63 [facility] Comment on above: Performed By: #### C MP ####[facility] [address] [address]DrRusty García Anion gap [Moles/Vol] 13.6 mmol/L Normal [facility] Comment on above: Performed By: #### C MP ####[facility] [address] [address]DrRusty García AST [Catalytic activity/Vol] 32 U/L Normal 15-37 [facility] Comment on above: Performed By: #### C MP ####[facility] [address] [address]DrRusty García Bilirubin [Mass/Vol] 0.5 mg/dL Normal 0.2-1.0 [facility] Comment on above: Performed By: #### C MP ####[facility] [address] [id number]. Juliet García Calcium [Mass/Vol] 8.9 mg/dL Normal 8.5-10.1 [facility] Comment on above: Performed By: #### C MP ####[facility] [address] [id number]. Juliet García Chloride [Moles/Vol] 106 mmol/L Normal 98-107 [facility] Comment on above: Performed By: #### C MP ####[facility] [address] [id number]. Juliet García CO2 [Moles/Vol] 27.1 mmol/L Normal 21.0-32.0 [facility] Comment on above: Performed By: #### C MP ####[facility] [address] [place], [place] [address]Dr. Juliet García Creatinine [Mass/Vol] 1.46 mg/dL Critically high 0.70-1.30 [facility] Comment on above: Performed By: #### C MP ####[facility] [facility] [address] [place] [id number]. Juliet García EGFR-AF TOGOLESE 59 mL/min/1.73m2 Critically low >=60 [facility] Comment on above: Performed By: #### C MP ####[facility] [address] [place] [address]Dr. Juliet Ricky EGFR-NON AF TOGOLESE 48 mL/min/1.73m2 Critically low >=60 [facility] Comment on above: Performed By: #### C MP ####[facility] [address] [place] [id number]. Juliet García Globulin (S) [Mass/Vol] 3.4 g/dL Normal [facility] Comment on above: Performed By: #### C MP ####[facility] [address] [place] [address]Dr. Juliet Ricky Glucose [Mass/Vol] 93 mg/dL Normal 74-106 [facility] Comment on above: Performed By: #### C MP ####[facility] [address] [place] [address]Dr. Juliet García Potassium [Moles/Vol] 4.7 mmol/L Normal 3.5-5.1 [facility] Comment on above: Performed By: #### C MP ####[facility] [address] [place] [address]Dr. Juliet García Protein [Mass/Vol] 7.4 g/dL Normal 6.4-8.2 [facility] Comment on above: Performed By: #### C MP ####[facility] [address] [place] [address]Dr. Juliet García Sodium [Moles/Vol] 142 mmol/L Normal 136-145 [facility] Comment on above: Performed By: #### C MP ####[facility] [address] [place] [address]Dr. Juliet García Urea nitrogen [Mass/Vol] 25.0 mg/dL Critically high 7.0-18.0 [facility] Comment on above: Performed By: #### C MP ####[facility] [address] [place] [address]Dr. Juliet García Urea nitrogen/Creatinine [Mass ratio] 17.1 mg/mg Normal [facility] Comment on above: Performed By: #### C MP ####[facility] [address] [place] [address]Dr. Juliet Ricky VC ENDOVENOUS ABL 1ST V LTon 01-30-2022 VC ENDOVENOUS ABL 1ST V LT Patient: CARLOS LOCKE Exam Date: 01/30/2022 : 1955 Gender:M Ordering : DR RACHEAL GRAVES M.D. Admission #: [id number] Family : Order #: [id number] CLICK HERE TO VIEW EXAM RADIOLOGY REPORT [...] M.D. on 01/30/2022 at 12:00 Normal [facility] POINT OF CARE GLUCOSEon 01-11 Glucose [Mass/Vol] 84 mg/dL Normal 74-106 [facility] Comment on above: Performed By: #### P OCGLUC #### [facility] [address] [address] [address] Juliet García VC COMP CONSULTATIONon 01-21 VC COMP CONSULTATION Patient: CARLOS LOCKE Exam Date: 01/21/2022 : 1955 Gender:M Ordering : DR RACHEAL GRAVES M.D. Admission #: [id number] Family : Order #: [id number] CLICK HERE TO VIEW EXAM RADIOLOGY REPORT [...] for years. The patient is retired from [employer] after working 42 years. The patient denies [...] incompetent branch saphenous tributary/varicose veins. Bilateral incompetent card hanger veins. PHYSICAL EXAM: The right leg demonstrates [...] pulses were present bilaterally. IMPRESSION: 1. Bilateral wqvj-bp-wwfnqmdz great saphenous vein and mild right small [...] MD on 01/21/2022 at 11:46 Normal [facility] VC VENOUS REFLUX MARIE LMTon 0 01-21-2022 VC VENOUS REFLUX MARIE LMT Patient: CARLOS LOCKE Exam Date: 01/21/2022 : 1955 Gender:M Ordering : DR RACHEAL GRAVES M.D. Admission #: [id number] Family : DR NATHALY BOONE . Order #: [id number] CLICK HERE TO VIEW EXAM RADIOLOGY REPORT [...] Compressibility: Normal. Flow: Mild deep venous reflux. Produce Wrapper: Post/prox calf 5.9mm, 0.7s reflux. Prox/med calf [...] MD on 01/21/2022 at 10:40 Normal [facility] POINT OF CARE GLUCOSEon 06-2 Glucose [Mass/Vol] 87 mg/dL Normal 74-106 [facility] Comment on above: Performed By: #### P OCGLUC ####[facility] [address] [place], [place] [address]Sk. Juliet García SURGICAL PATHOLOGYon 021 SURGICAL PATHOLOGY Specimen #: [id number] Submitting Physician: JULIET GARCÍA M.D. FINAL DIAGNOSIS [place], [place]; [id number] (12/07/2020) Liver, mass , biopsy (A1, A2, [...] do not hesitate to contact us at [phone] with questions or if additional follow up information becomes available. This case was reviewed in conjunction with the GI pathology fellow, Apoorva Diallo MD. The following stains were performed at the [facility] in order to further characterize this [...] in-situ hybridization tests have been determined by [facility]'s [facility] [place] ([facility]) in a manner consistent with CLIA requirements. One or more of these tests have not been cleared or approved by the FDA. [facility] is regulated under CLIA as qualified to perform high-complexity testing. These tests are used for clinical purposes. They should not be regarded as investigational or for research. Nicolasa Cheema M.D. (Electronic Signature) _ SPECIMEN SUBMITTED A: 12 slides [id number] CLINICAL DATA [facility] Date of Report: 03/27/2021 Date of Procedure: 03/16/2021 Date of Receipt: 03/15/2021 Submitted by: JULIET GARCÍA M.D. Location: Diagnostic interpretation performed at [facility], [address] [place] [address]. CLIA Number: [id number] Normal [facility] Comment on above: Performed By: #### S #### See report for performing lab information. Vital Signs Date Time Vital Sign Value Performing Clinician Facility 07-15-2024 [id number] Body mass index (BMI) [Ratio] 37.75 kg/m2 Tulio Ruggiero MD Work Phone: [facility] 07-15-2024 09:11-0500 Body temperature 98.4 [degF] Tulio Ruggiero MD Work Phone: [facility] 07-15-2024 09:11-0500 Body weight 133.36 kg Tulio Ruggiero MD Work Phone: [facility] 07-15-2024 09:11-0500 Diastolic blood pressure 60 mm[Hg] Tulio Ruggiero MD Work Phone: [facility] 07-15-2024 09:11-0500 Heart rate 96 /min Tulio Ruggiero MD Work Phone: [facility] 07-15-2024 09:11-0500 Respiratory rate 18 /min Tulio Ruggiero MD Work Phone: [facility] 07-15-2024 09:11-0500 SaO2% (BldA) [Mass fraction] 96 % Tulio Ruggiero MD Work Phone: [facility] 07-15-2024 09:11-0500 Systolic blood pressure 114 mm[Hg] Tulio Ruggiero MD Work Phone: [facility] 05-27-2024 08:56-0500 Blood Pressure Location LIZ DAVID [facility] 05-27-2024 08:56-0500 Body temperature 98.6 [degF] LIZ DAVID [facility] 05-27-2024 08:56-0500 Diastolic blood pressure 67 mm[Hg] LIZ DAVID [facility] 05-27-2024 08:56-0500 Heart rate 79 /min LIZ DAVID [facility] 05-27-2024 08:56-0500 Respiratory rate 18 /min LIZ DAVID [facility] 05-27-2024 08:56-0500 Systolic blood pressure 117 mm[Hg] LIZ DAVID [facility] 11-04-2023 08:38-0400 Blood Pressure Location LIZ DAVID [facility] 11-04-2023 08:38-0400 Diastolic blood pressure 82 mm[Hg] LIZ DAVID [facility] 11-04-2023 08:38-0400 Heart rate 80 /min LIZ DAVID [facility] 11-04-2023 08:38-0400 Respiratory rate 16 /min LIZ DAVID [facility] 11-04-2023 08:38-0400 Systolic blood pressure 131 mm[Hg] LIZ DAVID [facility] 06-03-2023 09:59-0500 Blood Pressure Location LIZ DAVID [facility] 06-03-2023 09:59-0500 Diastolic blood pressure 74 mm[Hg] LIZ DAVID [facility] 06-03-2023 09:59-0500 Heart rate 70 /min LIZ DAVID [facility] 06-03-2023 09:59-0500 Respiratory rate 16 /min LIZ DAVID [facility] 06-03-2023 09:59-0500 Systolic blood pressure 138 mm[Hg] LIZ DAVID [facility] 05-23-2022 09:45-0500 Body height 187.96 cm [facility] Other [facility] Other 05-23-2022 09:45-0500 Body mass index (BMI) [Ratio] 40.57 kg/m2 Alejandra Olexa Other [facility] Other 05-23-2022 09:45-0500 Body weight 143.34 kg Alejandra Olexa Other [facility] Other 08-07-2021 14:15-0500 Body height 187.96 cm Alejandra Olexa Other [facility] Other 08-07-2021 14:15-0500 Body mass index (BMI) [Ratio] 40.64 kg/m2 Alejandra Olexa Other [facility] Other 08-07-2021 14:15-0500 Body weight 143.61 kg Alejandra Olexa Other [facility] Other 04-12-2021 10:30-0400 Body height 187.96 cm Racheal Dominikjamaal Other [facility] Other 04-12-2021 10:30-0400 Body mass index (BMI) [Ratio] 41.75 kg/m2 Racheal Daniels Other [facility] Other 04-12-2021 10:30-0400 Body weight 147.51 kg Racheal Daniels Other [facility] Other 04-12-2021 10:30-0400 Diastolic blood pressure 71 mm[Hg] Racheal Daniels Other [facility] Other 04-12-2021 10:30-0400 Systolic blood pressure 131 mm[Hg] Racheal Daniels Other [facility] Other Encounters Encounter Date Encounter Type Care Provider Facility Start: 06-02-2025 ambulatory LIZSOFIA HERNANDEZ Michelle ty:YAYA Rodriugez Start: 08-19-2024 End: 08-19-2024 Clinisync Result Encounter Generic External Data Provider [facility] Unsolicited Start: 08-19-2024 End: 08-19-2024 Clinisync Result Encounter Generic External Data Provider [facility] External [facility] Unsolicited Start: 08-07-2024 End: 08-09-2024 Refill Tulio Ruggiero MD Work Phone: [facility] Comment on above: Morbid obesity (CMS/ HCC); 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/[facility]); Type 2 diabetes mellitus with hyperglycemia, without long-term current use of insulin ([facility]/HCC) Start: 08-05-2024 End: 08-05-2024 Clinisync Result Encounter Generic External Data Provider [facility] External [facility] Unsolicited Start: 08-05-2024 End: 08-05-2024 Clinisync Result Encounter Generic External Data Provider [facility] External [facility] Unsolicited Start: 07-28-2024 End: 08-05-2024 Orders Only Tulio Ruggiero MD Work Phone: [facility] Comment on above: Type 2 diabetes sol itus with hyperglycemia, without long-term current use of insulin (CMS/[facility]) (Primary Dx); Dyslipidemia ([facility]); Class 2 severe obesity due to excess calories with serious comorbidity and body mass index (BMI) of 37.0 to 37.9 in adult ([facility]); Encounter for long-term current use of medication; Screening PSA (prostate specific antigen) Start: 07-26-2024 End: 07-26-2024 ambulatory Daniele Valencia DO Facility:[facility] Start: 07-23-2024 End: 07-23-2024 ambulatory Daniele Valencia DO Facility:[facility] Start: 07-20-2024 End: 07-20-2024 Clinisync Result [...] encounter procedure Tulio Ruggiero MD Work Phone: [facility] Work Phone: Start: 07-15-2024 End: 07-15-2024 Periodic preventive med est patient 65yrs& older Tulio Ruggiero MD Work Phone: [facility] Comment on above: Annual physical exam (Primary Dx); Encounter for preoperative assessment; Type 2 diabetes mellitus with hyperglycemia, without long-term current use of insulin (CMS/HCC); Arthritis, gouty; 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); Class 2 severe obesity due to excess calories with serious comorbidity and body mass index (BMI) of 37.0 to 37.9 in adult (CMS/HCC); Dyslipidemia (CMS/HCC) Start: 07-15-2024 End: 07-15-2024 Preoperative state Tulio Ruggiero MD Work Phone: [facility] Start: 07-15-2024 End: 07-15-2024 ambulatory TULIO RUGGIERO Not Available Start: 05-27-2024 End: 05-27-2024 ambulatory LIZ HERNANDEZ Facility:[facility] Start: 05-27-2024 End: 05-27-2024 Patient encounter procedure LIZ HERNANDEZ [facility] Start: 04-08-2024 End: 04-09-2024 Refill Tulio Ruggiero MD Work Phone: [facility] Comment on above: Polyneuropathy due t o type 2 diabetes mellitus (CMS/HCC) Start: 04-06-2024 End: 04-07-2024 Refill Tulio Ruggiero MD Work Phone: [facility] Comment on above: Male hypogonadism Start: 01-12-2024 End: 01-12-2024 ambulatory TULIO RUGGIERO Not Available Start: 11-04-2023 End: 11-04-2023 ambulatory LIZ HERNANDEZ Facility:[facility] Start: 11-04-2023 End: 11-04-2023 Patient encounter procedure LIZ HERNANDEZ [facility] Start: 07-23-2023 Patient encounter procedure Tulio Ruggiero MD Work Phone: [facility] Start: 07-23-2023 End: 07-23-2023 ambulatory TULIO RUGGIERO Not Available Start: 06-03-2023 End: 06-03-2023 Patient encounter procedure LIZ HERNANDEZ [facility] Start: 12-05-2022 End: 12-06-[address] FELISA BERRIOS . Facility:[facility] Start: 12-03-2022 End: 12-04-[address] FELISA BERRIOS . Facility:[facility] Start: 11-29-2022 End: 11-30-2022 ambulatory CRISPIN OLVERAMIKANDACE . Facility:[facility] Start: 11-12-2022 End: 11-13-[address] FELSIA BERRIOS . Facility:[facility] Start: 11-05-2022 End: 11-06-[address] FELISA BERRIOS . Facility:[facility] Start: 10-28-2022 End: 10-29-[address] FELISA BERRIOS . Facility:[facility] Start: 10-21-2022 End: 10-21-[address] FELISA BERRIOS . Facility:[facility] Start: 10-18-2022 Encounter for preprocedural cardiovascular examination [facility] Start: 10-18-2022 Encounter for preprocedural laboratory examination [facility] Noa [facility] Start: 10-16-[address] FELISA BERRIOS [...] Start: 08-06-2022 End: 08-07-2022 ambulatory TONIO Latham [facility] Facility:[facility] Start: 07-31-2022 End: 07-31-2022 ambulatory [facility] Start: 07-31-2022 End: 08-01-[address] NATHALY BOONE . Facility:[facility] Start: 07-25-2022 End: 07-26-2022 ambulatory RODRIGO JOHNSON . Facility:[facility] Start: 07-24-2022 End: 07-25-2022 ambulatory TONIO Latham [facility] Facility:[facility] Start: 07-23-2022 End: 07-24-2022 ambulatory [...] 05-23-2022 End: 05-23-2022 ambulatory Alejandra Cain Other [facility] Other Start: 05-23-2022 Office outpatient vi sit 15 minutes Alejandra Cain [facility] Start: 05-03-2022 End: 05-04-[address] [...] 08-07-2021 End: 08-07-2021 ambulatory Alejandra Cain Other [facility] Other Start: 08-07-2021 Office outpatient vi sit 15 minutes Alejandra Cain [facility] [place] Start: 04-12-2021 Office outpatient vi sit 15 minutes Racheal Daniels [facility] Procedures Date Procedure Procedure Detail Performing Clinician Start: 08-19-2024 Antibody screen Generic Provider Start: 08-19-2024 ALL TYPE AND SCREEN Gen janette External Data Provider Start: 08-05-2024 Antibody screen Generic Provider Start: 08-05-2024 ALL TYPE AND SCREEN Gen janette External Data Provider Start: 07-20-2024 [facility] UA (CLEAN/CATCH) INFORMATION MANAGEMENT MANAGER/MICRO IF IND. Generic External Data Provider Start: 07-20-2024 ALL CBC WITH AUTO DIFF Generic External Data Provider Start: 05-03-[address] RCAHEAL GRAVES Comment on above: Performed By: #### P SAD #### [facility] [address] [place] [address] Dr. Juliet García Start: 12-07-2020 CT guided biopsy NATALIE SIMONS DAVID Comment on above: LIVER. NO SEDATION. Start: 07-15-2016 Colonoscopy Tulio simons MD Work Phone: Arthroscopy of knee LIZDOYLE HERNANDEZ Bilateral cataracts (disorder) LIZ HERNANDEZ H/O: vasectomy LIZ De Jesus Titan[employer] (substance) JOSE Hazel DAVID Comment on above: Toe Tonsillectomy LIZ FRANCORY Plan of Treatment Date Care Activity Detail Author Start: 07-15-2026 Screening for malign ant neoplasm of colon [facility] Start: 03-10-2025 Glaucoma screening Diabetes: R etinopathy Screening [facility] Start: 01-13-2025 Urine screening for protein Diabetes: Urine Protein Screening [facility] Start: 01-12-2025 End: 01-12-2025 Patient encounter procedure 01/12/2025 9:00 AM EDT [facility] [address] [place] [id number] Tulio Ruggiero MD [address] [place] [address] [facility] Start: 08-05-2024 End: 08-05-2025 Basic metabolic 1998 panel - Serum or Plasma Basic metabolic panel Lab Routine Encounter for long-term current use of medication Expected: 08/05/2024 (Approximate), Expires: 08/05/2025 [facility] Comment on above: Expected: 08/05/2024 (Approximate), Expires: 08/05/2025 Start: 08-05-2024 End: 08-05-2025 CBC W Auto Differential panel - Blood CBC and differential Lab Routine Encounter for long-term current use of medication Expected: 08/05/2024 (Approximate), Expires: 08/05/2025 [facility] Comment on above: Expected: 08/05/2024 (Approximate), Expires: 08/05/2025 Start: 08-05-2024 End: 08-05-2025 Hemoglobin A1c/Hemoglobin.total in Blood Hemoglobin A1c Lab Routine Type 2 diabetes mellitus with hyperglycemia, without long-term current use of insulin ([facility]) Expected: 08/05/2024 (Approximate), Expires: 08/05/2025 [facility] Work Phone: Comment on above: Expected: 08/05/2024 (Approximate), Expires: 08/05/2025 Start: 08-05-2024 End: 08-05-2025 Hepatic function 2000 panel - Serum or Plasma Hepatic function panel Lab Routine Encounter for long-term current use of medication Expected: 08/05/2024 (Approximate), Expires: 08/05/2025 [facility] Comment on above: Expected: 08/05/2024 (Approximate), Expires: 08/05/2025 Start: 08-05-2024 End: 08-05-2025 Lipid 1996 panel - Serum or Plasma Lipid panel Lab Routine Dyslipidemia ([facility]/HCC) Expected: 08/05/2024 (Approximate), Expires: 08/05/2025 [facility] Comment on above: Expected: 08/05/2024 (Approximate), Expires: 08/05/2025 Start: 08-05-2024 End: 08-05-2025 Prostate specific Ag [Mass/volume] in Serum or Plasma PSA Lab Routine Screening PSA (prostate specific antigen) Expected: 08/05/2024 (Approximate), Expires: 08/05/2025 [facility] Comment on above: Expected: 08/05/2024 (Approximate), Expires: 08/05/2025 Start: 08-05-2024 End: 08-05-2025 Thyrotropin [Units/volume] in Serum or Plasma TSH Lab Routine Class 2 severe obesity due to excess calories with serious comorbidity and body mass index (BMI) of 37.0 to 37.9 in adult ([facility]) Expected: 08/05/2024 (Approximate), Expires: 08/05/2025 [facility] Comment on above: Expected: 08/05/2024 (Approximate), Expires: 08/05/2025 Start: 07-16-2024 Hemoglobin A1c measurement Diabetes: Hemoglobin A1C [facility] Start: 07-15-2024 End: 07-15-2025 Basic metabolic 1998 panel - Serum or Plasma Basic metabolic panel Lab Routine Annual physical exam Expected: 07/15/2024 (Approximate), Expires: 07/15/2025 [facility] Comment on above: Expected: 07/15/2024 (Approximate), Expires: 07/15/2025 Start: 07-15-2024 End: 07-15-2025 CBC W Auto Differential panel - Blood CBC and differential Lab Routine Annual physical exam Expected: 07/15/2024 (Approximate), Expires: 07/15/2025 [facility] Comment on above: Expected: 07/15/2024 (Approximate), Expires: 07/15/2025 Start: 07-15-2024 End: 07-15-2025 Hemoglobin A1c/Hemoglobin.total in Blood Hemoglobin A1c Lab Routine Annual physical exam Expected: 07/15/2024 (Approximate), Expires: 07/15/2025 [facility] Work Phone: Comment on above: Expected: 07/15/2024 (Approximate), Expires: 07/15/2025 Start: 07-15-2024 End: 07-15-2025 Hepatic function 2000 panel - Serum or Plasma Hepatic function panel Lab Routine Annual physical exam Expected: 07/15/2024 (Approximate), Expires: 07/15/2025 [facility] Comment on above: Expected: 07/15/2024 (Approximate), Expires: 07/15/2025 Start: 07-15-2024 End: 07-15-2025 Lipid 1996 panel - Serum or Plasma Lipid panel Lab Routine Annual physical exam Expected: 07/15/2024 (Approximate), Expires: 07/15/2025 [facility] Comment on above: Expected: 07/15/2024 (Approximate), Expires: 07/15/2025 Start: 07-15-2024 End: 07-15-2025 Prostate specific Ag [Mass/volume] in Serum or Plasma PSA Lab Routine Annual physical exam Expected: 07/15/2024 (Approximate), Expires: 07/15/2025 [facility] Comment on above: Expected: 07/15/2024 (Approximate), Expires: 07/15/2025 Start: 07-15-2024 End: 07-15-2025 Thyrotropin [Units/volume] in Serum or Plasma TSH Lab Routine Annual physical exam Expected: 07/15/2024 (Approximate), Expires: 07/15/2025 [facility] Comment on above: Expected: 07/15/2024 (Approximate), Expires: 07/15/2025 Start: 07-15-2024 End: 07-15-2024 Patient encounter procedure [facility] Comment on above: Arrived Start: 03-14-2024 Influenza vaccination Influenza Vacc ine (#1) [facility] Start: 01-23-2024 Hemoglobin A1c measurement Diabetes: Hemoglobin A1C [facility] Start: 05-27-2022 Pneumococcal Vaccine : 65+ Years (2 of 2 - PCV) Pneumococcal Vaccine: 65+ Years (2 of 2 - PCV) [facility] Start: 1975 Urine screening for protein Diabetes: Urine Protein Screening [facility] Start: 1955 Screening for malign ant neoplasm of colon [facility] Immunizations Immunization Date Immunization Notes Care Provider Michelle thomas 04-19-2024 influenza virus vacc ine, unspecified formulation LIZ HERNANDEZ [facility] 04-20-2023 SARS-CoV-2 mRNA (tozinameran 5y-11y) vaccine LIZ DAVID [facility] Comment on above: Result Comment: covi d 19 mRNA (cvs) 04-12-2023 influenza virus vacc ine, unspecified formulation Tulio Ruggiero MD Work Phone: [facility] 04-17-2022 influenza virus vacc ine, unspecified formulation LIZ DAVID [facility] 03-23-2022 SARS-CoV-2 (COVID-19 ) [id number] LIZ HERNANDEZ [facility] 10-23-2021 SARS-CoV-2 mRNA (cwcuwahpnkq-bmtt-jvkdre e) vaccine LIZ DAVID [facility] 05-27-2021 pneumococcal polysaccharide vaccine, 23 valent LIZ HERNANDEZ [facility] 05-06-2021 SARS-CoV-2 (COVID-19 ) mRNA BNT-162b2 vax LIZ DAVID [facility] Comment on above: Result Comment: 2021: [id number] 04-07-2021 influenza virus vacc ine, unspecified formulation LIZ DAVID [facility] 09-18-2020 SARS-CoV-2 (COVID-19 ) mRNA BNT-162b2 vax LIZ DAVID [facility] 04-19-2020 influenza virus vacc ine, unspecified formulation LIZ DAVID [facility] [place] 04-15-2020 influenza virus vacc ine, unspecified formulation LIZ DAVID [facility] 04-20-2018 influenza virus vacc ine, unspecified formulation LIZ HERNANDEZ [facility] 03-24-2018 influenza virus vacc ine, unspecified formulation LIZ HERNANDEZ [facility] 05-01-2013 influenza virus vacc ine, unspecified formulation LIZ HERNANDEZ [facility] Payers Date Payer Category Payer Blue [place] [employer] Shield [facility] [id number] 2022 Medicare 2022 Unknown [id number] 2022 Unknown [id number] 2021 Medicare [id number] 2019 Unknown [id number] 1959 Medicare [id number] 1955 Unknown [id number] 2.16.840.1.453163.3.579.2. 593 1955 Unknown [id number] 2.16.840.1.697969.3.579.2. 593 1955 Unknown [id number] 2.16.840.1.902198.3.579.2. 593 1955 Unknown [id number] 2.16.840.1.432494.3.579.2. 593 1955 Unknown [id number] 2.16.840.1.677895.3.579.2. 593 1955 Unknown [id number] 2.16.840.1.395019.3.579.2. 593 1955 Unknown [id number] 2.16.840.1.176637.3.579.2. 593 1955 Unknown [id number] 2.16.840.1.541135.3.579.2. 593 1956 Unknown [id number] 2.16.840.1.144533.3.579.2. 593 1956 Unknown [id number] 2.16.840.1.038359.3.579.2. 593 1955 Unknown [id number] 2.16.840.1.853059.3.579.2. 593 1956 Unknown [id number] 2.16.840.1.236202.3.579.2. 593 1956 Unknown [id number] 2.16.840.1.345629.3.579.2. 593 1956 Unknown [id number] 2.16.840.1.342348.3.579.2. 593 1956 Unknown [id number] 2.16.840.1.680151.3.579.2. 593 1956 Unknown [id number] 2.16.840.1.239836.3.579.2. 593 1956 Unknown [id number] 2.16.840.1.705131.3.579.2. 593 1956 Unknown [id number] 2.16.840.1.280540.3.579.2. 593 1956 Unknown [id number] 2.16.840.1.633961.3.579.2. 593 1956 Unknown [id number] 2.16.840.1.160003.3.579.2. 593 1956 Unknown [id number] 2.16.840.1.124244.3.579.2. 593 1956 Unknown [id number] 2.16.840.1.767295.3.579.2. 593 1956 Unknown [id number] 2.16.840.1.677584.3.579.2. 593 1956 Unknown [id number] 2.16840.1.122046.3.579.2. 593 1956 Unknown [id number] 2.16.840.1.084754.3.579.2. 593 1956 Unknown [id number] 2.16.840.1.151044.3.579.2. 593 1956 Unknown [id number] 2.16.840.1.544388.3.579.2. 593 1956 Unknown [id number] 2.16840.1.374040.3.579.2. 593 1956 Unknown [id number] 2.16.840.1.024064.3.579.2. 593 1956 Unknown [id number] 2.16.840.1.934989.3.579.2. 593 1956 Unknown [id number] 2.16.840.1.015320.3.579.2. 593 1956 Unknown [id number] 2.16.840.1.250517.3.579.2. 593 1956 Unknown [id number] 2.16.840.1.389556.3.579.2. 593 1956 Unknown [id number] 2.16.840.1.245505.3.579.2. 593 1956 Unknown [id number] 2.16.840.1.318923.3.579.2. 593 1956 Unknown [id number] 2.16.840.1.695993.3.579.2. 593 1956 Unknown [id number] 2.16.840.1.061218.3.579.2. 593 1956 Unknown [id number] 2.16.840.1.025515.3.579.2. 593 1956 Unknown [id number] 2.16.840.1.531056.3.579.2. 593 1956 Unknown [id number] 2.16.840.1.345036.3.579.2. 593 1956 Unknown [id number] 2.16.840.1.975940.3.579.2. 1259 1956 Unknown [id number] 2.16.840.1.007997.3.579.2. 1259 1956 Unknown [id number] 2.16.840.1.959707.3.579.2. 1259 1956 Unknown [id number] 2.16.840.1.548827.3.579.2. 196 1956 Unknown [id number] 2.16.840.1.733020.3.579.2. 196 1956 Unknown [id number] 2.16.840.1.107949.3.579.2. 727 1956 Unknown [id number] 2.16.840.1.015222.3.579.2. 727 1956 Unknown [id number] 2.16.840.1.534275.3.579.2. 727 Social History Date Type Detail Facility Start: 01-12-2024 End: 07-15-2024 Sex Assigned At [facility] Start: 03-10-2023 End: 06-03-2023 Tobacco smoking status Never smoked tobacco (finding) [facility] Tobacco smoking status Never [facility] Start: 03-10-2023 Tobacco use and exposure Smokeless tobacco non-user [facility] Start: 01-12-2024 End: 07-15-2024 History of Social function [facility] Start: 1955 Sex assigned at Not on file [facility] Functional Status Date Assessment Result Facility 05-27-2024 Functional Status N/A [facility] 11-04-2023 Functional Status N/A [facility] 06-03-2023 Functional Status N/A [facility] Clinical Notes 04-12-2021 to 07-23-2024 Tulio Ruggiero [...] Signed, Electronically Signed in Other Vendor System) [facility] 07-15-2024 History of Present illness Narrative Associated Problem(s): Dyslipidemia ([facility]) Due for labs. Associated Problem(s): Class 2 severe obesity due to excess calories with serious comorbidity and body mass index (BMI) of 37.0 to 37.9 in adult ([facility]) Weight down 9 pounds in past year. Continue exercise and diet changes. Associated Problem(s): Polyneuropathy due to type 2 diabetes mellitus ([facility]) Neuropathy stable and continue neurontin. Associated Problem(s): Type 2 diabetes mellitus with hyperglycemia, without long-term current use of insulin ([facility]) Reports BS controlled and due [...] Problem List Items Addressed This Visit Dyslipidemia (CMS/HCC) Due for labs. Arthritis, gouty Relevant Medications [...] mellitus (CMS/HCC) Neuropathy stable and continue neurontin. Annual physical [...] Recommend routine PAT. documented in this encounter [facility] 05-27-2024 Hospital Discharge instructions Patient Education 05/27/2024 09:56:36 Kidney Stones, Qfzk-ne-Mlnt Kidney Stones Kidney stones are rock-like masses [...] Follow these instructions at home: Medicines Take cznd-yhl-gajqguk and prescription medicines only as told by [...] provider. Document Revised: 02/21/2023 Document Reviewed: 02/21/2023 [employer] Patient Education 2023 [employer]. Follow Up Care 11/04/2023 09:32:44 With:DAVID IVAN, LIZ Juarez, URL Address: When:1 year [facility] Note Patient Education Urology Kidney Stones [...] these instructions at home: Medicines ??? Take zvjd-dih-lkqpeqs and prescription medicines only as told by [...] provider. Document Revised: 02/21/2023 Document Reviewed: 02/21/2023 [employer] Patient Education ? 2023 [employer]. [facility] 11-04-2023 Hospital Discharge instructions Patient [...] Follow these instructions at home: Medicines Take ztzj-ekr-cjqftfj and prescription medicines only as told by [...] provider. Document Revised: 09/26/2021 Document Reviewed: 09/26/2021 [employer] Patient Education 2022 [employer]. Follow Up Care 06/03/2023 10:28:55 With:DAVID IVAN, LIZ Juarez, URL Address: [facility] [place] [place] [address] [phone] When: Unknown [facility] 06-03-2023 Hospital Discharge instructions Patient Education 06/03/2023 [...] treatment? Where to find more information [employer]: www.cancer.org [employer]: www.auanet.org Contact a health care [...] provider. Document Revised: 12/24/2021 Document Reviewed: 12/24/2021 [employer] Patient Education 2022 [employer]. Follow Up Care 05/29/2022 11:47:27 With:LIZ HERNANDEZ PA-C, URL Address: [address] [place] [address] [phone] When: Unknown Comments:6 mos w/ PSA [facility] 12-03-2022 Note PROCEDURE: XR FOOT L T [...] authenticated by: ELIN KENNY Date: 2022-12-03 09:57 [facility] 11-12-2022 Note PROCEDURE: XR FOOT L [...] by: ZAFAR FERRER Date: 2022-11-12 13:59 [facility] 10-22-2022 Note PROCEDURE: XR FOOT [...] by: ELIN KENNY Date: 2022-10-22 07:48 [facility] 10-22-2022 Note PROCEDURE: XR FOOT L T 2V HISTORY: Pain COMPARISON: XR foot left 10/21/2022 FINDINGS: BONES:Multiple intraoperative spot fluoroscopic images demonstrate mechanical fusion of the first metatarsophalangeal joint and resection of head of first proximal phalanx. IMPRESSION: 1. Surgical changes of left first toe as detailed above. Electronically authenticated by: ELIN KENNY Date: 2022-10-22 07:46 [facility] 07-31-2022 Note Currently stable [facility] 07-31-2022 Note Hypertension is well controlled 114/64 Continue lisinopril 5 mg Recent CR elevated 1.59- his cr typically has been 1.2-1.4 - He has been on antibiotics for Lt foot infection- DFU with wound care. [facility] 07-31-2022 Note Lipid abnormalities are currently well controlled with lipitor 20 mg- LDL currently 58.6 on labs 07/26/2022 Liver function 04/2022 were normal [facility] 07-31-2022 Note UTP CARDIOLOGY PROGR [...] RTC 1 year or earlier if needed [facility] 07-31-2022 Note Patient here for [...] All other systems reviewed and are negative. [facility] 07-31-2022 Note CONSULTATION PROCEDURE DATE: [...] the clinic in three months' time. [facility] 07-25-2022 Note CONSULTATION CONSULTATION DATE: 07/25/2022 HISTORY OF PRESENT ILLNESS: This is a 66-year-old gentleman who presents to the Pain Clinic today with increased lower back pain. The patient does have chronic bilateral knee pain, but he states those are doing quite well. He did receive a left knee steroid injection in April. The patient just recently returned from a [place] vacation, where he visited multiple [employer] mayes and had a lot of increased [...] and will be contacted upon approval. [facility] 07-24-2022 Note PROCEDURE: XR FOOT [...] by: ELIN KENNY Date: 2022-07-24 10:21 [facility] 06-10-2022 Note PROCEDURE: XR KNEE L T 4V or > HISTORY: Pain in left knee ; chronic left knee pain COMPARISON: XR knee bilateral 05/31/2021 FINDINGS: BONES:Marked narrowing of the medial joint space with suspected tmgq-dp-bxej articulation. Moderate-marked narrowing of the lateral compartment. Mild narrowing of anterior compartment. Small periarticular osteophytes involving the margins of all 3 compartments. No fracture or dislocation. SOFT TISSUES:No visible soft tissue swelling. EFFUSION:Small joint effusion. OTHER: Negative. IMPRESSION: 1. Marked degenerative joint disease. Stable to minimally progressed. Electronically authenticated by: ELIN KENNY Date: 2022-06-10 19:35 [facility] 05-23-2022 Evaluation note Encounter Date [...] Pain in left knee (ICD-10 - M25.562) [facility] Other 10-11-2022 NoteCONSULTATION CONSULTATION DATE: 04/23/2022 CHIEF [...] the time being. CC: Felisa Berrios M.D.[facility] [id number] NoteCONSULTATION CONSULTATION DATE: 04/04/2022 HISTORY OF PRESENT [...] indicated. Patient agreed with plan of care.[id number] Note CONSULTATION CONSULTATION DATE: 02/14/2022 HISTORY OF [...] time unless otherwise indicated. Patient acknowledges understanding.[facility] [id number] NoteCONSULTATION PROCEDURE DATE: 02/14/2022 PREOPERATIVE DIAGNOSIS: Bilateral [...] will be followed up in the office.[facility] [id number] Evaluation note* Encounter Date Diagnosis Assessment Notes [...] Pain in left knee (ICD-10 - M25.562) [facility] Other 09-30-2021 Evaluation note* Encounter Date Diagnosis Assessment Notes Treatment Notes Treatment Clinical Notes Mar, Liver hemangioma (ICD-10 - D18.03) Mar, HODGES (nonalcoholic steatohepatitis) (ICD-10 - K75.81) [facility] Other Evaluation + Plan note Future Appointments Appointment Date:11/04/2023 08:30:00 AM Scheduled Provider:LIZ HERNANDEZ PA-C Location:[facility] Appointment Type:URO Office Visit Diagnostic Tests Pending * PSA Total 06/03/23 [facility] evaluation + Plan note Future Appointments Appointment Date:05/25/2024 08:40:00 AM Scheduled Provider:LIZ HERNANDEZ PA-C Location:[facility] Appointment Type:URO Office Visit [facility] evaluation note* Diagnosis Polyneuropathy due to type 2 [...] unspecified hyperlipidemia [facility] [...] Polyneuropathy due to type 2 diabetes mellitus ([facility]) Primary insomnia Persistent disorder of initiating or maintaining sleep Annual physical exam- Primary Routine general medical examination at a health care facility Encounter for preoperative assessment Type 2 diabetes mellitus with hyperglycemia, without long-term current use of insulin ([facility]) Arthritis, gouty Gouty arthropathy, unspecified Polyneuropathy due to type 2 diabetes mellitus ([facility]) Class 2 severe obesity due to excess calories with serious comorbidity and body mass index (BMI) of 37.0 to 37.9 in adult ([facility]) Dyslipidemia ([facility]) Other and unspecified hyperlipidemia Type 2 diabetes mellitus with hyperglycemia, without long-term current use of insulin ([facility])- Primary Dyslipidemia ([facility]) Other and unspecified hyperlipidemia Class 2 severe obesity due to excess calories with serious comorbidity and body mass index (BMI) of 37.0 to 37.9 in adult ([facility]) Encounter for long-term current use of medication Screening PSA (prostate specific antigen) Special screening for malignant neoplasm of prostate documented in this encounter [facility]* Diagnosis Annual physical exam- Primary Routine general medical examination at a health care facility Type 2 diabetes mellitus with hyperglycemia, without long-term current use of insulin ([facility]) Type 2 diabetes mellitus with hyperglycemia, without long-term current use of insulin ([facility])- Primary Arthritis, gouty Gouty arthropathy, unspecified Seasonal allergic rhinitis due to pollen DDD (degenerative disc disease), lumbar Degeneration of lumbar or lumbosacral intervertebral disc Polyneuropathy due to type 2 diabetes mellitus ([facility]) Primary insomnia Persistent disorder of initiating or maintaining sleep Annual physical exam- Primary Routine general medical examination at a health care facility Encounter for preoperative assessment Type 2 diabetes mellitus with hyperglycemia, without long-term current use of insulin ([facility]) Arthritis, gouty Gouty arthropathy, unspecified Polyneuropathy due to type 2 diabetes mellitus ([facility]) Class 2 severe obesity due to excess calories with serious comorbidity and body mass index (BMI) of 37.0 to 37.9 in adult ([facility]) Dyslipidemia ([facility]) Other and unspecified hyperlipidemia Morbid obesity ([facility]) Morbid obesity Polyneuropathy due to type 2 diabetes mellitus ([facility]) Type 2 diabetes mellitus with hyperglycemia, without long-term current use of insulin ([facility]) documented [facility] N[facility]ative - Reported* Type Description Date Medical History DM II Medical History HTN Medical History hyperlipidemia Medical History gout Surgical History knee surgery Surgical History tonsillectomy Surgical History vasectomy Surgical History sinus surgery Surgical History back injections Hospitalization History SEE ABOVE SURGICAL HX [facility] Other Hospital course Narrative No data available for this section [facility] progress note No data available for this section [facility] Summary Purpose Family History No Family History [...] section and content) DATE CREATED AUTHOR 03/29/2021 [facility] DATE CREATED AUTHOR AUTHOR'S ORGANIZ ATION 08/06/2022 [facility] DATE CREATED AUTHOR AUTHOR'S ORGANIZ ATION 12/20/2022 [facility] DATE CREATED AUTHOR AUTHOR'S ORGANIZ ATION 07/16/2024 [facility] EPIC DATE CREATED AUTHOR AUTHOR'S ORGANIZ ATION 07/28/2024 [facility] DATE CREATED AUTHOR AUTHOR'S ORGANIZ ATION 08/01/2024 [facility] REASON FOR VISIT (unrecogniz ed section and content) Reason Comments Med Refill Reason Onset Date Comments Med Refill 04/06/2024 Reason Comments Follow-up 6m Patient Care team informatio n (unrecognized section and content) State Director Relationship Specialty Start Date End Date Tulio Ruggiero MD [address] [place] [phone] PCP - [employer] 04/13/23 Tulio Ruggiero MD [address] [place] [address] PCP - General Family Medicine 01/12/24 State Director Relationship Specialty Start Date End Date Tulio Ruggiero MD [address] [place] [address] PCP - [employer] 04/13/23 Tulio Ruggiero MD [address] [place] [address] PCP - General Family Medicine 01/12/24 State Director Relationship Specialty Start Date End Date Tulio Ruggiero MD [address] [place] [address] PCP - [employer] 04/13/23 Tulio Ruggiero MD [address] [place] [address] PCP - General Family Medicine 01/12/24 State Director Relationship Specialty Start Date End Date Tulio Ruggiero MD [address] [place] [address] PCP - [employer] 04/13/23 Tulio Ruggiero MD [address] [place] [address] PCP - General Family Medicine 01/12/24 State Director Relationship Specialty Start Date End Date Tulio Ruggiero MD [address] [place] [address] [facility] 04/13/23 Tulio Ruggiero MD [address] [place] [address] [facility] 01/12/24 State Director Relationship Specialty Start Date End Date Tulio Ruggiero MD [address] [place] [address] [facility] 04/13/23 Tulio Ruggiero MD [address] [place] [address] [facility] 01/12/24 State Director Relationship Specialty Start Date End Date Tulio Ruggiero MD [address] [place] [address] [facility] 04/13/23 Tuilo Ruggiero MD [address] [place] [address] [facility] 01/12/24 State Director Relationship Specialty Start Date End Date Tulio Ruggiero MD [address] [place] [address] [facility] 01/12/24 FOR RECORDS PERTAINING TO PATIENTS WHO [...] BE BASED ON THE PRIMARY CLINICAL RECORDS. [facility] License [facility]. provides no warranty or guarantee of the accuracy or completeness of information in this document.
[2024-08-23 07:10] LABS: Basophils Percent Auto 0.6 % (0.2-2.0); Eosinophils Absolute Auto 0.4 10^3/uL (0.0-0.7); Eosinophils Percent Auto 4.9 % (0.9-7.0); Hematocrit 43.4 % (42.0-54.0); Hemoglobin 14.7 g/dL (14.0-18.0); Immature Granulocytes Abs Auto 0.03 10^3/uL (0.00-0.03); Immature Granulocytes Pct Auto 0.4 % (0.0-0.5); Lymphocytes Absolute Auto 2.2 10^3/uL (1.2-3.8); Lymphocytes Percent Auto 30.6 % (20.5-60.0); Mean Corpuscular HGB Conc 33.9 g/dL (29.9-35.2); Mean Corpuscular Hemoglobin 32.8 pg (25.9-34.0); Mean Corpuscular Volume 96.9 fL (80.0-94.0); Mean Platelet Volume 8.8 fL (9.5-13.5); Monocytes Absolute Auto 0.6 10^3/uL (0.3-0.8); Monocytes Percent Auto 8.3 % (1.7-12.0); Neutrophils Absolute Auto 3.9 10^3/uL (1.4-6.5); Neutrophils Percent Auto 55.2 % (43.0-75.0); Platelet Count 229 10^3/uL (150-450); Red Blood Count 4.48 10^6/uL (4.70-6.10); Red Cell Distribution Width 13.5 % (11.0-15.0); White Blood Count 7.1 10^3/uL (4.0-11.0)
[2024-08-23 07:43] LABS: Glucometer 105 mg/dL (74-106)
[2024-08-23] MEDS: TRAMADOL HCL 50 MG TABLET 100 MG PO (07:45)
[2024-08-23] MEDS: DEXAMETHASONE SOD PHOS (PF) 10 MG/ML VIAL IV (07:46)
[2024-08-23] MEDS: CEFAZOLIN SODIUM 2 GM/50 ML D5W PREMIX IV (08:21)
[2024-08-23] MEDS: LACTATED RINGER'S SOLUTION 1,000 ML 50 ML IV ×2 (08:23→09:18)
--- NOTE | 2024-08-23 08:27 | PC.NURSE ---
Patient was consented for nerve block by Dr. Barclay. Time out performed per protocol at 0809. Patient placed on O2 and monitor. Patient medicated by Dr. Barclay.Bedside ultrasound used to perform block. Patient tolerated procedure well. Patient remained on O2 and monitor until taken to OR.
[2024-08-23] MEDS: TRANEXAMIC ACID 1,000 MG in 0.9 % SODIUM CHLORIDE 100 ML 440 MG IV ×2 (08:35→12:01)
[2024-08-23] MEDS: LIDOCAINE HCL 1%-EPINEPHRINE 1:100,000 20 ML MDV 10 ML INJ (11:00)
[2024-08-23] MEDS: BUPIVACAINE HCL 0.5% PF 50 MG/10 ML VIAL 20 ML INJ (11:00)
[2024-08-23] MEDS: VANCOMYCIN HCL 1,000 MG VIAL 2000 MG TOPICAL (11:35)
--- NOTE | 2024-08-23 12:21 | XR_ITS ---
The [address] [address] Patient Name: CARLOS LOCKE MRN: [id number] date: 1955 Sex: M Assigned Patient Location: [facility] Current Patient Location: [facility] Accession/Order Number: [id number] Exam Date: 08/23/2024 12:30 Report Date: 08/23/2024 13:05 At the request of: ERIN CRUZ Procedure: XR knee LT 4V EXAMINATION: XR knee LT 4V HISTORY: Post op in pacu COMPARISON: No relevant comparison available. FINDINGS: BONES: Total joint replacement with the orthopedic components appearing seated in anatomic alignment. SOFT TISSUES: Postprocedural subcutaneous and joint air/fluid OTHER: Negative. XR/XR knee LT 4V IMPRESSION: 1. Total joint replacement with expected postsurgical findings. Electronically authenticated by: RACHEAL GRAVES Date: 08/23/2024 13:05
--- NOTE | 2024-08-23 12:32 | PM.ORPRC ---
Procedure Note Date of procedure: 08/23/24 Pre-op diagnosis: Left knee osteoarthritis Post-op diagnosis: same as pre-op Procedure: Left total knee arthroplasty Patient is a pleasant 61-year-old male presents today for left total knee arthroplasty. Does have a significant history of left knee osteoarthritis. He has tried injections, physical therapy oral anti-inflammatories with limited relief. He is elected for total knee arthroplasty. Discussed risk and benefits of the surgery include but not limited to bleeding, blood clots, infection, wound healing complications, damage surrounding structure, loss of limb, loss of life. Patient understands these risks and informed consent was obtained. No guarantees were made. Patient was taken back to the operative suite. Transferred to the operative table. Underwent anesthesia induction intubation without any complications. Richmond was placed. A timeout was had and the patient, procedure, operative site was confirmed. We proceeded to isolate and prepped out the left lower extremity in usual sterile fashion. We then proceed to give the patient TXA and 3 g Ancef. We then proceeded to exsanguinate the limb and inflated the tourniquet. We started with a standard midline approach to the knee dissected through skin and subcutaneous tissue. Performed a medial parapatellar arthrotomy. Remove the suprapatellar and infrapatellar fat pads. A medial peel was performed to the mid coronal plane of the tibia. We then flexed the knee up to 90 degrees. We excised the ACL and PCL. We then placed our distal femur cut guide on the distal femur that was pretty templated. We made our distal femur cut. Drummond that the patient had about a 5 degree flexion contracture therefore we did +2 on cut. We then felt this was an adequate cup. We then proceeded to utilize a predrilled holes to place our 4-in-1 cut guide for a size 8 femur. We checked our rotation which appeared to be parallel with the transepicondylar axis. We then proceeded to perform our 5 distal femur cuts. Following completion of our cuts we used an osteotome and a lamina donor services technician to remove any bony osteophytes in the posterior knee. We then proceeded to sublux the tibia forward. We then used a pretemplate guide to make a proximal tibia cut. We did check our cut and appeared to be in good position varus valgus as well as good slope. We then proceeded to place lamina splitter removed the medial and lateral meniscus in its entirety. Removed any bony osteophytes. We did check with an extension block and demonstrated some slight tightness medially and looseness laterally as to be expected. We performed a medial release and then used a rongeur to remove medial osteophytes. Following this we had a little bit better balancing. We then proceeded to prep the tibia at the appropriate external rotation on the medial third also. Templated with drill holes. We selected a size 7 tibia which was drilled and T-handle punched. We then proceeded to place at the size 8 femur onto the distal femur. We cut for the PS box. We then trialed with a size 12. Had excellent extension. Good stability with no medial gapping and approximately 1 mm lateral gapping with varus stress. There was no flexion instability. We then everted the patella made a freehand patellar cut. Patella measured 24 prior to cut in about 14 after cutting. We then proceeded to drill for the size 35 patella. At this point we are satisfied with our stability therefore we opened our final implants including a size 35 mm patella size 8 femur and size 7 tibia. We copiously irrigated the knee with Irrisept and normal saline pulse lavage. We then proceeded to implant the implants and packed them into place. A size 13 poly was placed for compression. We then removed any excess cement and waited for the cement polymerized. Following this we then proceeded to trial the knee. The knee was excellent and full extension. Good stability. I was able to obtain flexion to about 125 130 degrees. Varus valgus stress in extension was stable. Flexion was also stable. Anterior drawer was stable. Patella tracks nicely. We elected to go with a size 13 poly which the trial poly was removed and we implanted a size 13 standard PS poly. We once again checked for any excess cement. The knee was copiously irrigated. 3 g of Vanco powder was placed into the wound. Arthrotomy was closed with #1 Vicryl followed by a #1 running strata fix. Subcutaneous layers closed with 0 Vicryl and 2-0 Vicryl in a layered fashion followed by 3-0 running Monocryl with Dermabond placement. Patient extubated taken the PACU in stable condition. Postoperative plan: Patient will be weightbearing as tolerated. Start physical therapy on the floor immediately. Surgical dressing to remain in place until follow-up in 2 weeks. May shower with the dressing but no soaks or baths. Aspirin for DVT prophylaxis starting tomorrow.
[2024-08-23] MEDS: HYDROMORPHONE HCL 0.5 MG/0.5 ML SYRINGE IV ×3 (12:48→13:06)
[2024-08-23] MEDS: HYDROCODONE/ACET 5-325 MG TABLET 1 TAB PO (13:26)
[2024-08-23] MEDS: KETOROLAC TROMETHAMINE 30 MG/ML VIAL IVP (13:41)
[2024-08-23] MEDS: 0.9 % SODIUM CHLORIDE 1,000 ML 100 ML IV ×2 (14:29→21:37)
[2024-08-23] MEDS: CEFAZOLIN SODIUM 3,000 MG in 0.9 % SODIUM CHLORIDE 100 ML 200 MG IV (15:04)
--- NOTE | 2024-08-23 18:49 | P.PN_ITS ---
Progress Note: Subjective Subjective Interval history: Const for Co. medical management for knee arthritis with repair by knee arthroplasty Exam Constitutional Vital Signs, click to edit/add: Last Vital Signs Temp 97.1 F L 08/23/24 16:00 Pulse 88 08/23/24 16:00 Resp 20 08/23/24 16:00 BP 120/71 08/23/24 16:00 Pulse Ox 94 L 08/23/24 16:00 O2 Del Method Room Air 08/23/24 16:00 O2 Flow Rate 2 08/23/24 13:56 Documenting provider has reviewed patient's vital signs: yes Common normals: no apparent distress Chest Common normals: inspection of chest normal Respiratory Common normals: normal respiratory effort and no retractions Cardio Common normals: regular rate and regular rhythm GI Common normals: negative for Normal to inspection, nondistended, normoactive bowel sounds present (Obese) Progress Note: Objective Labs Labs: Short CBC 08/23/24 Range/Units 07:07 WBC 7.1 (4.0-11.0) 10^3/uL Hgb 14.7 (14.0-18.0) g/dL Hct 43.4 (42.0-54.0) % Plt Count 229 (150-450) 10^3/uL Progress Note: A&P Assessment and Plan (1) Obesity: (2) Nonalcoholic fatty liver: (3) Diabetes mellitus: Plan Knee arthroplasty-plan per orthopedics Gout-will hold off on medications currently Hypercholesterolemia continue with current medications at discharge Generalized anxiety disorder-restart diazepam as needed Hyperglycemia-restart metformin Insomnia-continue with home medications Urinary Catheter Management Urinary Catheter Management Urethral: Cath placed during this visit: no
[2024-08-23] MEDS: GABAPENTIN 300 MG CAPSULE PO (21:37)
[2024-08-23] MEDS: ASCORBIC ACID 500 MG TABLET PO (21:37)
[2024-08-23] MEDS: TRAZODONE HCL 50 MG TABLET PO (21:38)
[2024-08-23] MEDS: BACLOFEN 10 MG TABLET 20 MG PO (21:38)
[2024-08-24] VITALS: BP 91/52; PULSE 89; TEMP 37.1; O2SAT 91
[2024-08-24 04:00] VITALS: BP 100/60; PULSE 88; TEMP 36.6; O2SAT 96
[2024-08-24] MEDS: GABAPENTIN 300 MG CAPSULE PO (05:46)
--- NOTE | 2024-08-24 05:53 | P.PN_ITS ---
Progress Note: Subjective Subjective Interval history: No complaints overnight, pain fairly well-maintained, no chest pain no shortness of breath Exam Constitutional Vital Signs, click to edit/add: Last Vital Signs Temp 97.8 F 08/24/24 04:00 Pulse 88 08/24/24 04:00 Resp 16 08/24/24 04:00 BP 100/60 08/24/24 04:00 Pulse Ox 96 08/24/24 04:00 O2 Del Method CPAP 08/24/24 04:00 O2 Flow Rate 2 08/23/24 13:56 Documenting provider has reviewed patient's vital signs: yes Common normals: no apparent distress Chest Common normals: inspection of chest normal Respiratory Common normals: normal respiratory effort, no retractions and clear to auscultation bilaterally Cardio Common normals: regular rate, regular rhythm and no murmurs GI Common normals: negative for Normal to inspection, nondistended, normoactive bowel sounds present (Obese) Progress Note: Objective Labs Labs: Short CBC 08/23/24 Range/Units 07:07 WBC 7.1 (4.0-11.0) 10^3/uL Hgb 14.7 (14.0-18.0) g/dL Hct 43.4 (42.0-54.0) % Plt Count 229 (150-450) 10^3/uL Progress Note: A&P Assessment and Plan (1) Obesity: (2) Nonalcoholic fatty liver: (3) Diabetes mellitus: Plan Knee arthroplasty-plan per orthopedics Gout-will hold off on medications currently Hypercholesterolemia continue with current medications at discharge Generalized anxiety disorder-restart diazepam as needed Hyperglycemia-restart metformin Insomnia-continue with home medications Medically stable for discharge Urinary Catheter Management Urinary Catheter Management Urethral: Cath placed during this visit: no
[2024-08-24 06:19] LABS: Basophils Percent Auto 0.1 % (0.2-2.0); Eosinophils Percent Auto 0.1 % (0.9-7.0); Hematocrit 34.8 % (42.0-54.0); Hemoglobin 11.5 g/dL (14.0-18.0); Immature Granulocytes Abs Auto 0.09 10^3/uL (0.00-0.03); Immature Granulocytes Pct Auto 0.7 % (0.0-0.5); Lymphocytes Absolute Auto 1.2 10^3/uL (1.2-3.8); Lymphocytes Percent Auto 8.9 % (20.5-60.0); Mean Corpuscular Hemoglobin 32.9 pg (25.9-34.0); Mean Corpuscular Volume 99.4 fL (80.0-94.0); Mean Platelet Volume 9.2 fL (9.5-13.5); Monocytes Absolute Auto 1.3 10^3/uL (0.3-0.8); Monocytes Percent Auto 9.1 % (1.7-12.0); Neutrophils Absolute Auto 11.2 10^3/uL (1.4-6.5); Neutrophils Percent Auto 81.1 % (43.0-75.0); Platelet Count 222 10^3/uL (150-450); Red Cell Distribution Width 13.7 % (11.0-15.0); White Blood Count 13.8 10^3/uL (4.0-11.0)
[2024-08-24 06:29] LABS: Anion Gap 14.3; BUN Creatinine Ratio 17.3; Calcium 7.7 mg/dL (8.5-10.1); Carbon Dioxide 25.4 mmol/L (21.0-32.0); Chloride 108 mmol/L (98-107); Estimated GFR (African America 52 (>=60 mL/min/1.73m^2); Estimated GFR (Non-African Ame 43 (>=60 mL/min/1.73m^2); Glucose 112 mg/dL (74-106); Potassium 4.7 mmol/L (3.5-5.1); Sodium 143 mmol/L (136-145)
[2024-08-24 07:43] VITALS: BP 102/64; PULSE 80; TEMP 36.8; O2SAT 97
--- NOTE | 2024-08-24 08:35 | CM.NOTE ---
Rounds made with Dr. Kuhn. Dr. Kuhn reviews plan of care. Potential discharge later today.
[2024-08-24] MEDS: HYDROCODONE/ACET 5-325 MG TABLET 1 TAB PO (08:48)
[2024-08-24] MEDS: LISINOPRIL 5 MG TABLET PO (09:18)
[2024-08-24] MEDS: ASCORBIC ACID 500 MG TABLET PO (09:18)
[2024-08-24] MEDS: METFORMIN HCL 500 MG TAB.ER.24H PO (09:18)
[2024-08-24] MEDS: ATORVASTATIN CALCIUM 20 MG TABLET PO (09:19)
--- NOTE | 2024-08-24 09:29 | P.ORPN_ITS ---
Progress Note: A&P Assessment and Plan (1) Obesity: (2) Nonalcoholic fatty liver: (3) Diabetes mellitus: Plan POD # 1 L TKA - WBAT - PT eval today, outpatient PT set up already per - Maintain midline knee dressing until follow up, may shower with it, no soaking - Start ASA for DVT ppx today - Post op meds have been sent to k[facility], states that she has picked them up. - Follow up in [address] Valencia in the [place] office Discussed with my Supervising Physician, Dr Valencia. Subjective Subjective Principal diagnosis: Post Op Left TKA Interval history: Patient is POD #1 L TKA and doing well. Patient's pain is controlled this morning and he was up in the room with walking with physical therapy. He states his knee feels weird but denies pain. He does have some swelling and feels like he is somewhat dragging the leg. Exam Narrative Exam Narrative: On exam patient is in no distress sitting in the hospital chair, age appropriate, alert and oriented x 3. On inspection the anterior left knee dressing is c/d/i. Patient has full dorsi/plantar flexion bilaterally and 5/5 strength. Sensation intact distally with light touch. 2+ DP pulse palpated. Constitutional Vital Signs, click to edit/add: Last Vital Signs Temp 98.3 F 08/24/24 07:43 Pulse 80 08/24/24 07:43 Resp 20 08/24/24 07:43 BP 102/64 08/24/24 07:43 Pulse Ox 97 08/24/24 07:43 O2 Del Method Room Air 08/24/24 07:43 O2 Flow Rate 2 08/23/24 13:56 Urinary Catheter Management Urinary Catheter Management Urethral: Cath placed during this visit: no
--- NOTE | 2024-08-24 09:50 | REH.PTDLY ---
Physical Therapy Daily Note PT Daily Note/Assess Start: 08/24/24 09:38 Freq: Status: Active Protocol: Document 08/24/24 09:38 NANCY (Rec: 08/24/24 09:49 [id number] Physical Therapy Daily Note/Assessment Time In 09:20 Time Out 09:39 Subjective Pt had pain meds, no pain at rest. Going home today. Therapeutic Exercise 2 Minutes (minutes) Therapeutic Exercise 0 Units Therapeutic Exercise Instructed in seated AP and AA LAQ 10x ea for Treatment circulation and strength Therapeutic Activity 10 Minutes (minutes) Therapeutic Activity 1 Units Therapeutic Activity Sit to stand transfers from chair CGA with cues. Pt Comments stood holding onto RW while donned underwear. Gait training with RW CGA 110 feet x 2 with pain increasing some with gait. Pt has limited knee flexion with gait, as pt states he is trying to bend it. Gait Training/Stairs 5 Minutes (minutes) Gait Training/Stairs 0 Units Stair Climbing Contact Guard Assist,1 Person Assist Ability Gait Comments Stair negotiation CGA ascending/descending 4 steps with pt using B HR and cues for proper foot placement. Pt will be using HR and SC at home. has had TKA in past as well and is very knowledgeable in recovery process. Total Therapy 17 Minutes Total Physical 1 Therapy Units Daily Note Summary Pt does well with progression of gait distance and steps performing CGA. Pt is to be DC to home later today and will be seen OP this week for PT.
--- NOTE | 2024-08-24 11:20 | SWNOTE1 ---
SW spoke to pt's in [facility]. Pt is going to be discharged and he is doing great. Pt did work with therapy and did well. They have all DME that is needed.
== END 2024-08-24 10:12 | disposition home or self-care (01) ==
LOC: SURGOUT 06:59 → MS 14:01
PROVIDERS: Anesthesiology; Family Medicine; PCP Family Medicine; Visit Provider Student in an Organized Health Care Education/Training Program
PROC: (CPT 1402; principal; 2024-08-23 08:30)
DX: M17.12 Unilateral primary osteoarthritis, left knee (principal); E66.9 Obesity, unspecified; K76.0 Fatty (change of) liver, not elsewhere classified; M10.9 Gout, unspecified; E78.00 Pure hypercholesterolemia, unspecified; F41.1 Generalized anxiety disorder; E11.65 Type 2 diabetes mellitus with hyperglycemia; G47.00 Insomnia, unspecified; Z79.84 Long term (current) use of oral hypoglycemic drugs; I10 Essential (primary) hypertension; G47.33 Obstructive sleep apnea (adult) (pediatric); Z68.38 Body mass index [BMI] 38.0-38.9, adult; Z86.711 Personal history of pulmonary embolism; E66.01 Morbid (severe) obesity due to excess calories; E11.40 Type 2 diabetes mellitus with diabetic neuropathy, unspecified
CPT/HCPCS: 27447; 36415; 64447; 73564; 80048; 82948; 85025; 97110; 97161; 97165; 97530; C1713; C1776; J0131; J0665; J0690; J1100; J1171; J1885; J2250; J2371; J2704; J2795; J3010; J3370

== ENCOUNTER 2024-08-27 08:57 | Outpatient (RCR) | payer BC, SELFPAY | END 2024-10-09 07:16 | disposition home or self-care (01) | LOC: PT 08:57 | PROVIDERS: PCP Family Medicine; Visit Provider Student in an Organized Health Care Education/Training Program | DX: M17.12 Unilateral primary osteoarthritis, left knee (principal); M25.562 Pain in left knee | CPT/HCPCS: 97110; 97112; 97140; 97161; 97530 ==

== ENCOUNTER 2024-09-06 13:02 | Outpatient (OUT) | payer BC, MEDICARE, SELFPAY ==
--- NOTE | 2024-09-06 | XR_ITS ---
The [address] [address] Patient Name: CARLOS LOCKE MRN: [id number] date: 1955 Sex: M Assigned Patient Location: Current Patient Location: Accession/Order Number: [id number] Exam Date: 09/06/2024 14:51 Report Date: 09/06/2024 14:54 At the request of: ERIN CRUZ MD Procedure: XR knee LT 2V LEFT KNEE - 2 views COMPARISON: 08/23/2024 CLINICAL DATA: Follow-up knee replacement. Knee pain. AP and lateral weightbearing views were obtained. A knee prosthesis is again visualized. The hardware appears intact and in appropriate position. There is no developing fracture or dislocation. A knee effusion is seen. XR/XR knee LT 2V IMPRESSION: SATISFACTORY APPEARANCE OF KNEE REPLACEMENT. NO ACUTE BONY FINDINGS. Impression dictated by: Brunilda Rogers M.D.09/06/2024 2:54 PM Dictation Location: [employer] Electronically authenticated by: [id number] Y Date: 09/06/2024 14:54
== END 2024-09-06 13:03 | disposition home or self-care (01) ==
LOC: EC 13:02
PROVIDERS: PCP Family Medicine; Visit Provider Student in an Organized Health Care Education/Training Program
DX: Z47.1 Aftercare following joint replacement surgery (principal); Z96.652 Presence of left artificial knee joint
CPT/HCPCS: 73560

== ENCOUNTER 2024-10-04 12:58 | Outpatient (OUT) | payer BC, SELFPAY ==
--- NOTE | 2024-10-04 12:59 | XR_ITS ---
The [address] [address] Patient Name: CARLOS LOCKE MRN: [id number] date: 1955 Sex: M Assigned Patient Location: Current Patient Location: Accession/Order Number: [id number] Exam Date: 10/04/2024 14:50 Report Date: 10/04/2024 14:51 At the request of: ERIN CRUZ MD Procedure: XR knee LT 2V LEFT KNEE - 2 views CLINICAL HISTORY: Aftercare following joint replacement surgery of left knee COMPARISON: Left knee 2 views FINDINGS: Left TKA without hardware complication. XR/XR knee LT 2V IMPRESSION: NO HARDWARE COMPLICATION. Impression dictated by: Rehan Sheppard Jr., DRustyORusty10/04/2024 2:51 PM Dictation Location: [place] [address] Electronically authenticated by: [id number] Y Date: 10/04/2024 14:51
== END 2024-10-04 12:59 | disposition home or self-care (01) ==
LOC: EC 12:58
PROVIDERS: PCP Family Medicine; Visit Provider Student in an Organized Health Care Education/Training Program
DX: Z47.1 Aftercare following joint replacement surgery (principal)
CPT/HCPCS: 73560

== ENCOUNTER 2024-11-04 08:01 | Outpatient (OUT) | payer BC, SELFPAY ==
--- NOTE | 2024-11-04 08:29 | PM.CN ---
Consult Note: HPI Data of Consult Patient: known to practice within the last 3 years Requesting Physician: Gracie Chaudhry NP Primary Care Provider: Tulio Madrid MD Consult Narrative Reason for consult: f/u Narrative: Warner Caraballo a pleasant 68 year old male presents for evaluation of chronic low back pain. Today rating pain 4/10 in low back, pain increasing to 8/10 with standing, walking, pushing, pulling, transitioning, bending, activity. Pain improved with lying and heat. Finds benefit to diclofenac, gabapentin, flexeril, and tramadol without side effects. Over the last few weeks has noticed increased low back pain and spasming. cc:: CC: Gracie Chaudhry NP Review of Systems ROS Status of ROS 10 or more systems reviewed and unremarkable except as noted in history and below Musculoskeletal Reports: back pain PFSH PFSH Medical History Insomnia ?G47.00 - Insomnia, unspecified (ICD-10) Seasonal allergic rhinitis ?J30.2 - Other seasonal allergic rhinitis (ICD-10) Polyneuropathy due to type 2 diabetes mellitus ?E11.42 - Type 2 diabetes mellitus with diabetic polyneuropathy (ICD-10) Nonalcoholic fatty liver ?K76.0 - Fatty (change of) liver, not elsewhere classified (ICD-10) Hypogonadism Degenerative disc disease, lumbar ?M51.369 - Other intervertebral disc degeneration, lumbar region without mention of lumbar back pain or lower extremity pain (ICD-10) Pseudophakia ?Z96.1 - Presence of intraocular lens (ICD-10) Cataract ?H26.9 - Unspecified cataract (ICD-10) Lumbar spondylosis ?M47.816 - Spondylosis without myelopathy or radiculopathy, lumbar region (ICD-10) Diabetes mellitus ?E11.9 - Type 2 diabetes mellitus without complications (ICD-10) Knee pain ?M25.569 - Pain in unspecified knee (ICD-10) Back pain ?M54.9 - Dorsalgia, unspecified (ICD-10) Hypertension ?I10 - Essential (primary) hypertension (ICD-10) Gout ?M10.9 - Gout, unspecified (ICD-10) Sleep apnea ?G47.30 - Sleep apnea, unspecified (ICD-10) Hyperlipidemia ?E78.5 - Hyperlipidemia, unspecified (ICD-10) Myofascial pain ?M79.18 - Myalgia, other site (ICD-10) Lumbar stenosis with neurogenic claudication ?M48.062 - Spinal stenosis, lumbar region with neurogenic claudication (ICD-10) Bilateral primary osteoarthritis of knee ?M17.0 - Bilateral primary osteoarthritis of knee (ICD-10) Pulmonary embolism (07/2020) ?I26.99 - Other pulmonary embolism without acute cor pulmonale (ICD-10) COVID-19 (07/2020) ?U07.1 - COVID-19 (ICD-10) Kidney stones ?N20.0 - Calculus of kidney (ICD-10) Knee osteoarthritis ?M17.9 - Osteoarthritis of knee, unspecified (ICD-10) Fusion, toes ?Q70.20 - Fused toes, unspecified foot (ICD-10) Surgical History H/O sinus surgery ?Z98.890 - Other specified postprocedural states (ICD-10) History of vasectomy ?Z98.52 - Vasectomy status (ICD-10) S/P cataract extraction and insertion of intraocular lens ?Z98.49 - Cataract extraction status, unspecified eye (ICD-10) ?Z96.1 - Presence of intraocular lens (ICD-10) History of radiofrequency ablation (RFA) of nerve of lumbar spine ?Z98.890 - Other specified postprocedural states (ICD-10) S/P epidural steroid injection ?Z92.241 - Personal history of systemic steroid therapy (ICD-10) History of foot surgery ?Z98.890 - Other specified postprocedural states (ICD-10) History of tonsillectomy and adenoidectomy ?Z90.89 - Acquired absence of other organs (ICD-10) S/P right knee arthroscopy ?Z98.890 - Other specified postprocedural states (ICD-10) S/P left knee arthroscopy ?Z98.890 - Other specified postprocedural states (ICD-10) Family History Other Family history of diabetes mellitus Family history of hypertension Family history of prostate cancer Family history of stroke Social History Within the past year, how often did you have a drink containing alcohol: monthly or less Smoking status: Never smoker Non-prescribed substance use: denies use Previous occupational history: RETIRED Highest level of school completed/degree received: high school graduate Meds Home Medications and Allergies Home Medications ?Medication ?Instructions ?Recorded ?Confirmed ?Type acetaminophen 500 mg tablet 1,000 mg PO Q6H PRN pain 01/06/23 07/20/24 History (Acetaminophen Extra Strength) ascorbic acid (vitamin C) 500 mg 500 mg PO BID 01/06/23 08/23/24 History tablet (C-500) atorvastatin 20 mg tablet 20 mg PO DAILY 01/06/23 08/23/24 History cholecalciferol (vitamin D3) 25 1,000 unit PO BID 01/06/23 08/23/24 History mcg (1,000 unit) tablet (Vitamin D3) colchicine 0.6 mg tablet 0.6 mg PO TID 01/06/23 08/23/24 History diclofenac sodium 50 mg 50 mg PO BID 01/06/23 08/23/24 History tablet,delayed release febuxostat 40 mg tablet 40 mg PO DAILY 01/06/23 08/23/24 History gabapentin 300 mg capsule 300 mg PO TID 01/06/23 08/23/24 History lisinopril 5 mg tablet 5 mg PO DAILY 01/06/23 08/23/24 History metformin 500 mg tablet,extended 500 mg PO DAILY 01/06/23 08/23/24 History release 24 hr probenecid 500 mg tablet 500 mg PO BID 01/06/23 08/23/24 History tizanidine 4 mg tablet 8 mg PO .QHS PRN muscle spasticity 01/06/23 08/23/24 History naloxone 4 mg/actuation nasal 4 mg intranasal Q2M PRN opioid 06/16/24 07/20/24 Rx spray (Narcan) overdose #1 ea tramadol 50 mg tablet 50 mg PO BID PRN pain #60 tabs 07/19/24 08/23/24 Rx allopurinol 300 mg tablet 300 mg PO DAILY 07/20/24 08/23/24 History baclofen 20 mg tablet 20 mg PO QPM 07/20/24 08/23/24 History diazepam 10 mg tablet 10 mg PO TID PRN anxiety 07/20/24 08/23/24 History semaglutide 2 mg/dose (8 mg/3 mL) 2 mg subcut QWEEK 07/20/24 08/23/24 History subcutaneous pen injector (Ozempic) tadalafil 10 mg tablet 20 mg PO DAILY PRN sexual activity 07/20/24 08/23/24 History testosterone cypionate 200 mg/mL 200 mg IM Q14D 07/20/24 07/20/24 History intramuscular oil cyclobenzaprine 10 mg tablet See Rx Instructions .Route 08/09/24 08/23/24 Rx .COMPLEX PRN muscle spasm #30 tabs trazodone 50 mg tablet 50 mg PO .QHS 08/23/24 08/23/24 History cyclobenzaprine 10 mg tablet 10 mg PO BID PRN muscle spasm #180 09/13/24 Rx tabs tramadol 50 mg tablet 50 mg PO BID PRN pain #60 tabs 09/30/24 Rx tramadol 50 mg tablet 50 mg PO BID PRN pain #60 tabs 11/01/24 Rx Allergies Allergy/AdvReac Type Severity Reaction Status Date / Time oxycodone AdvReac hyperactivi Verified 07/20/24 09:24 ty Exam Constitutional Documenting provider has reviewed patient's vital signs: yes Common normals: no apparent distress, oriented x3, healthy appearing, alert and well nourished General appearance: cooperative HENMT Common normals: normocephalic, hearing grossly normal bilaterally and moist oral mucous membranes Head and scalp: normocephalic Eye Common normals: PERRL Pupil: PERRL Neck & C-Spine Common normals: full ROM General: normal visual inspection Chest Common normals: inspection of chest normal Respiratory Common normals: normal respiratory effort, no retractions and no use of accessory muscles Back & Pelvis Lumbar spine/lower back: ROM limited, pain with ROM, lumbar spinal tenderness, paraspinal muscle tenderness, paraspinal muscle spasm Lumbar paraspinal muscle spasm: bilateral Bilateral lumbar paraspinal muscle spasm: L3, L4 and L5 and straight leg raise negative bilaterally Sacroiliac joints: SI joints normal Other: trigger points noted to bilateral paralumbar spine positive facet loading Extremity Common normals: normal to inspection and full ROM Neuro Common normals: oriented x3 and gait normal Sensorium/orientation: alert Psych Common normals: mental status grossly normal, thought process normal, cooperative, affect normal, speech normal and activity/motor behavior normal Speech: normal speech Thought process: normal thought process Results Additional Findings Additional findings: If on a controlled substance or opioids, I have checked an [place] report on this patient and there are no aberrancies noted in the prescribing history.??If on a controlled substance or opioid a drug screen was completed and reviewed within the last year, and if there has not been a drug screen completed we ordered one today to monitor higher risk, state monitored pain medication use. As part of providing excellent, safe, comprehensive care, the following was completed at our patient's visit: 1. A medication reconciliation and review to ensure accurate knowledge of current/active medications, including asking our patients to inform us about any [id number] medications or herbal remedies/nutritional supplements/alternative remedies. 2. A review to specifically ensure our patients have had annual screening for screening for depression, screening for tobacco use, and screening for unhealthy alcohol use. For concerning screenings had a discussion with the patient, provided patient education, and recommended follow-up with primary care provider when appropriate. If patient noted with a risk of falling, they received education on strength, gait, and balance training to prevent future risk of falling. Portions of this note may have been carried over from the previous visit and updated as appropriate. Please note this office utilizes paper charting in addition to the electronic medical record. A list of current medications, vitals, and PMH is available there as the clinical staff outside of myself do not have access to [facility] charting during the clinic day operations. As part of providing quality comprehensive care the current medications, vitals, and PMH were reviewed in the paper chart. Assessment and Plan Assessment and Plan (1) Myalgia, other site: Assessment and Plan: increased myofascial pain and spasming within the last 4 weeks, pt has failed to benefit from heat, ice, TENS, stretching, NSAIDs, and flexeril proceed with bilateral latissimus dorsi trigger point injection to paralumbar spine OPERATION:?bilateral latissimus dorsi trigger point injection for myalgia other site COMPLICATIONS:?None. DESCRIPTION OF PROCEDURE:?The procedure risks, hazards and alternatives were discussed with the patient and a proper consent was obtained. The area over the myofascial spasm was prepped with alcohol utilizing sterile technique. After isolating it between two palpating fingertips a 25-gauge 1.5 needle was placed in the center of the myofascial spasms and a negative aspiration was performed. Then 1cc of bupivacaine 0.25% and depo-medrol 10mg was injected into each trigger point x4. The patient tolerated the procedure well without any apparent difficulties or complications. They were feeling relief by the time the block had set. (2) Chronic use of opiate for therapeutic purpose: (3) Lumbar spondylosis: Assessment and Plan: defer repeat lumbar RFA at this time, pain well controlled NOAH 8% Plan continue HEP as tolerated continue current medications, denies side effects TPI completed with significant relief and resolution of trigger points f/u 3 months, sooner if needed
== END 2024-11-04 08:02 | disposition home or self-care (01) ==
PROVIDERS: PCP Family Medicine; Visit Provider Nurse Practitioner
DX: M79.18 Myalgia, other site (principal); Z79.891 Long term (current) use of opiate analgesic; M47.816 Spondylosis without myelopathy or radiculopathy, lumbar region
CPT/HCPCS: 20552; J0665

== ENCOUNTER 2024-12-31 11:26 | Outpatient (OUT) | payer BC, SELFPAY ==
[2024-12-31 14:24] LABS: Prostate Specific Antigen Dx 1.32 ng/mL (<=4.00)
== END 2024-12-31 11:27 | disposition home or self-care (01) ==
LOC: LAB 11:29
PROVIDERS: PCP Family Medicine; Visit Provider Physician Assistant
DX: R97.20 Elevated prostate specific antigen [PSA] (principal)
CPT/HCPCS: 36415; 84153

== ENCOUNTER 2025-01-13 08:46 | Outpatient (OUT) | payer BC, SELFPAY ==
--- OUTSIDE RECORDS SUMMARY | 2025-01-13 09:03 | XMS_ITS | CCD ---
Author Organization [facility] Care Team Providers Care Tobacco Sieve Operator Name Role Phone Dominikjamaal Racheal Unavailable Ant [...] SALCIDO Admitting Unavailable BERRIOS ., DR FELISA Juarze Primary Care Unavailable BERRIOS ., DR FELISA Juarez Attending Unavailable BERRIOS ., DR FELISA Juarez Consulting Unavailable BERRIOS ., DR FELISA Juarez Admitting Unavailable BERRIOS ., DR FELISA Juarez Attending Unavailable BERRIOS ., DR FELISA Juaerz Consulting Unavailable BERRIOS ., DR FELISA Juarez Primary Care Unavailable BERRIOS ., DR FELISA Juarez Admitting Unavailable BIB, DR ELIN Oliva Consulting Unavailable ELY, DR RACHEAL Ayala Admitting Unavailable ELY, DR RACHEAL Ayala Consulting Unavailable BERRIOS ., DR FELISA Juarez Primary Care Unavailable ELY, DR RACHEAL Ayala Attending Unavailable BERRIOS ., DR FELISA Juarez Primary Care Unavailable TONIO BELL Admitting Unavailable TONIO EBLL Attending Unavailable BERRIOS ., DR FELISA Juarez Primary Care Unavailable BOONE ., DR NATHALY aMin Consulting Unavailable BOONE ., DR NATHALY Main [...] ., DR FELISA Juarez Primary Care Unavailable [facility], DR STEWART Attending Unavailable [facility], DR STEWART Admitting Unavailable [facility], DR STEWART Consulting Unavailable WEST, DR RACHEAL Ayala Admitting Unavailable WEST, DR RACHEAL Ayala Consulting Unavailable WEST, DR RACHEAL Ayala Attending Unavailable BERRIOS ., DR FELISA Juarez [facility] EL[facility] Oliva Consulting Unavailable BERRIOS ., [...] Unavailable BERRIOS, FELISA Juarez Primary Care Physician TULIO RUGGIERO Primary Care Physician Monik MCGUIRE, Tulio Unavailable Tulio Ruggiero MD Primary Care Provider [phone] Daniele Cruz DO Attending UnavailDaniele Tsai DO Attending Unavailantonio e LIZ HERNANDEZ Attending Unavailable DAVID, LIZ Juarez Attending Unavailable DAVID, LIZ Juarez Attending Unavailable MONIK, TULIO Attending Unavailable MONIK, TULIO Attending Unavailable MONIK, TULIO Attending Unavailable Allergies Allergy Classification Reported Allergen(s) Allergy Type Date of Onset Reaction(s) Facility (3 sources) Acetaminophen / oxyCODONE Drug Allergy Unknown [facility] Other (20 sources) Acetaminophen / oxyCODONE; Translations: [OXYCODONE-ACETAM INOPHEN] Drug Allergy 3 Itching, Rash [facility] Repository (20 sources) oxyCODONE; Translations: [OXYCODONE] Drug Allergy 3 Hyperactive behavior (finding) [facility] Repository (1 source) Acetaminophen / oxyCODONE Drug Allergy [facility] Repository (1 source) oxyCODONE; Translations: [OxyCODONE Hydrochloride] Drug Allergy [facility] Repository Medications Current Medications Medication Drug Class(es) Dates Sig (Normalized) Sig (Original) allopurinol 300 mg oral tablet (20 sources) Xanthine Oxidase Inhibitor allopurinol (Zyloprim) 300 MG tablet 1 (one) time each day at the same time. Active atorvastatin 20 mg oral tablet (20 sources) HMG-CoA Reductase Inhibitor Start: 04-25-2020 take 1 tablet by mouth at bedtime atorvastatin (Lipitor) 20 MG tablet Indications: Dyslipidemia Take 1 tablet (20 mg) by mouth at bedtime 90 tablet 3 09/30/2023 Active Atorvastatin Rafael cium Active baclofen 10 mg oral tablet (20 sources) gamma-Aminobutyric Acid-ergic Agonist Start: 11-17-2020 take 1 tablet by mouth at bedtime baclofen 10 mg Tab 10 mg = 1 tab(s), Oral, Bedtime, Refills(s) 0, Muscle pain Start Date: 11/17/20 Status: Ordered take 1 tablet by mouth at bedtim e baclofen (Lioresal) 20 MG tablet Take 1 tablet by mouth at bedtime. Active Baclofen Active colchicine 0.6 mg oral tablet (20 sources) Start: 10-19-2024 End: 10-19-2024 take 1 tablet by mouth three times daily as needed for pain colchicine 0.6 MG tablet Indications: Arthritis, gouty Take 1 tablet (0.6 mg) by mouth 3 (three) times a day as needed for muscle/joint pain 60 tablet 3 10/19/2024 Active Start: 11-15-2020 colchicine 0.6 MG tablet Indications: Morbid obesity (CMS/HCC) , Polyneuropathy due to type 2 diabetes mellitus ([facility]) , Type 2 diabetes mellitus with hyperglycemia, without long-term current use of insulin ([facility]) TAKE 1 TABLET BY MOUTH THREE TIMES A DAY NEEDED FOR GOUT 60 tablet 3 08/06/2023 Active Colchicine Activ e cyclobenzaprine hydrochloride 10 mg oral tablet (2 sources) Muscle Relaxant Start: 11-04-2023 cyclobenzaprin e 10 mg Tab Refills(s) 0 Start Date: 11/04/23 Status: Ordered diazePAM 10 mg oral tablet (20 sources) Benzodiazepine diazePAM (Valium ) 10 MG tablet Take by mouth every 8 (eight) hours if needed Active diclofenac sodium 50 mg delayed release oral tablet (20 sources) Nonsteroidal Anti-inflammatory Drug Start: 11-04-2023 diclofenac sodium 50 mg Oral EC Tab Refills(s) 0 Start Date: 11/04/23 Status: Ordered febuxostat 40 mg oral tablet (20 sources) Xanthine Oxidase Inhibitor Start: 11-03-2024 febuxostat (Uloric) 40 MG tablet Indications: Type 2 diabetes mellitus with hyperglycemia, without long-term current use of insulin (HCC) , Morbid obesity (CMS-HCC) , 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) Take 1 tablet (40 mg) by mouth Daily 90 tablet 3 11/03/2024 Active Start: 04-25-2020 End: 08-09-2024 febuxostat (Uloric) 40 MG ta blet Indications: Morbid obesity (CMS/HCC) , 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) , Type 2 diabetes mellitus with hyperglycemia, without long-term current use of insulin (CMS/HCC) TAKE 1 TABLET BY MOUTH EVERY DAY 90 tablet 3 08/09/2024 Active Febuxostat Activ e gabapentin 300 mg oral capsule (20 sources) Anti-epileptic Agent Start: 11-15-2020 End: 03-07-2025 take 1 capsule by mouth in the morning, then take 1 capsule by mouth in the evening, then take 1 capsule by mouth at bedtime gabapentin (Neurontin) 300 MG capsule Indications: 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) Take 1 capsule (300 mg) by mouth in the morning and 1 capsule (300 mg) in the evening and 1 capsule (300 mg) before bedtime. 270 capsule 12/07/2024 03/07/2025 Active Gabapentin Activ e lisinopril 5 mg oral tablet (20 sources) Angiotensin Converting Enzyme Inhibitor Start: 06-07-2024 lisinopril 5 MG tabl et Indications: Morbid obesity (CMS-HCC) , 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) , Type 2 diabetes mellitus with hyperglycemia, without long-term current use of insulin (HCC) TAKE 1 TABLET BY MOUTH EVERY DAY [...] hydrochloride 500 mg extended release oral tablet (20 sources) Biguanide Start: 06-07-2024 metFORMIN XR ( Glucophage-XR) 500 MG 24 hr tablet Indications: Morbid obesity (CMS-HCC) , 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) , Type 2 diabetes mellitus with hyperglycemia, without long-term current use of insulin (HCC) TAKE 1 TABLET BY MOUTH EVERY DAY [...] Ozempic Active probenecid 500 mg oral tablet (20 sources) Start: 07-15-2024 take 1 tablet by [...] (Ozempic, 2 MG/DOSE,) 8 MG/3ML solution pen-injector (20 sources) Start: 10-20-2024 inject 2 mg by subcutaneous injection every week Semaglutide, 2 MG/DOSE, (Ozempic, 2 MG/DOSE,) 8 MG/3ML solution pen-injector Indications: Type 2 diabetes mellitus with hyperglycemia, without long-term current use of insulin ([facility]) INJECT 2 MG SUBCUTANEOUSLY WEEKLY 9 mL 3 10/20/2024 Active Start: 10-20-2024 inject 2 mg by subcu taneous injection every week Semaglutide, 2 MG/DOSE, (Ozempic, 2 MG/DOSE,) 8 MG/3ML solution pen-injector Indications: Type 2 diabetes mellitus with hyperglycemia, without long-term current use of insulin (CMS/HCC) INJECT 2 MG SUBCUTANEOUSLY WEEKLY 9 mL 3 10/20/2024 Active Start: 08-26-2023 inject 2 mg by subcu taneous injection every week Semaglutide, 2 MG/DOSE, (Ozempic, 2 MG/DOSE,) 8 MG/3ML solution pen-injector Indications: Type 2 diabetes mellitus with hyperglycemia, without long-term current use of insulin (CMS/HCC) Inject 2 mg under the skin 1 (one) time per week 9 mL 3 08/26/2023 Active sulfamethoxazole 800 mg / trimethoprim 160 mg oral tablet (3 sources) Dihydrofolate Reductase Inhibitor Antibacterial, Sulfonamide Antimicrobial Start: 10-13-2024 End: 10-23-2024 take 1 tablet by mouth once in the morning sulfamethoxazole-trimethoprim (Bactrim DS) 800-160 MG per tablet Indications: Abscess of abdominal wall Take 1 tablet by mouth in the morning and at noon for 10 days 20 tablet 10/13/2024 10/23/2024 Active Syringe/Needle, Disp, (B-D 3CC LUER-HERMINIO SYR 23GX1 ) 23G X 1 3 ML misc (20 sources) Start: 10-04-2024 Syringe/Needle, Disp, (B-D 3 CC LUER-HERMINIO SYR 23GX1 ) 23G X 1 3 ML misc Indications: Male hypogonadism Inject 1 each into the shoulder, thigh, or buttocks every 14 (fourteen) days 50 each 11 10/04/2024 Active Start: 12-24-2023 Syringe/Needle , Disp, (B-D 3CC LUER-HERMINIO SYR 23GX1 ) [...] 20mg/24hrs, # 20 tab(s), Refills(s) 3, Pharmacy: [facility]/pharmacy #[id number], 188, cm, 06/03/23 10:01:00 EST, Height/Length Dosing, 138, kg, 06/03/23 10:01:00 EST, Weight Dosing Start Date: 06/03/23 Status: Ordered 1 ml testosterone cypionate 200 mg/ml injection (20 sources) Androgen Start: 12-24-2023 End: 11-08-2024 testosterone cypionate (Depo-Testosterone ) 200 MG/ML injection Indications: Male hypogonadism Inject 0.5 mL (100 mg) into the shoulder, thigh, or buttocks every 14 (fourteen) days 10 mL 2 11/09/2024 Active Testosterone Cypionate 200 mg/mL intramuscular solution (3 sources) Start: 06-03-2023 Testosterone Cypionate 200 mg/mL intramuscular solution Refills(s) 0 Start Date: 06/03/23 Status: Ordered tiZANidine 4 mg oral tablet (20 sources) Central alpha-2 Adrenergic Agonist take 1 tablet by mouth every six hours as needed tiZANidine (Zanaflex) 4 MG tablet Take 4 mg by mouth every 6 (six) hours if needed for muscle spasms Active traMADol hydrochloride 50 mg oral tablet (20 sources) Opioid Agonist Start: 06-03-2023 traMADOL 50 mg Tab Refills(s) 0 Start Date: 06/03/23 Status: Ordered traMADol HCl Act vitro traZODone hydrochloride 50 mg oral tablet (20 sources) Serotonin Reuptake Inhibitor Start: 12-27-2024 take 1 tablet by mouth at bedtime traZODone (Desyrel) 50 MG tablet Indications: Primary insomnia Take 1 tablet (50 mg) by mouth at bedtime 30 tablet 3 12/27/2024 Active Start: 06-24-2024 take 1 tablet by debbie th at [...] needed, # 2 tab(s), Refills(s) 0, Pharmacy: [facility]/pharmacy #[id number], 185.4, cm, 12/05/20 11:15:00 EDT, Height/Length [...] cataract, bilateral] Onset: 3 03-10-2023 Chronic Chronic kidney disease (2 sources) Chronic kidney disease stage 3A ; Translations: [Chronic kidney disease, stage 3a ([facility])] 01-12-2025 Chronic Chronic ulcer of skin (5 sources) [...] Onset: 2 Chronic Disorders of lipid metabolism (20 sources) Mixed hyperlipidemia; Translations: [Pure hypercholesterolemia, unspecified] Onset: 3 Chronic Disorders of teeth and jaw (1 source) 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; Translations: [ADHESIONS AND ANKYLOSIS LEFT TMJ] Onset: 3 Episodic Essential hypertension (3 sources) Essential (primary) hypertension; Translations: [Essential (primary) hypertension] Onset: 3 Chronic Genitourinary symptoms and ill-defined conditions (3 sources) Nocturia 04-25-2020 Episodic Gout and other crystal arthropathies (20 sources) Gout, unspecified; Translations: [Gouty arthropathy] Onset: 2 Chronic Hepatitis (4 sources) Steatohepatitis; Translations: [Nonalcoholic steatohepatitis ([facility]ES)] Onset: 1 Resolved: 1 Chronic Hyperplasia of prostate (8 sources) Benign prostatic hypertrophy with outflow obstruction; Translations: [Benign prostatic hyperplasia with lower urinary tract symptoms] Onset: 3 Chronic Miscellaneous mental health disorders (20 sources) Primary insomnia; Translations: [Primary insomnia] Onset: 4 01-12-2024 Chronic Neoplasms of unspecified nature or uncertain behavior (3 sources) 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 11-30-2020 Episodic Osteoarthritis (20 sources) Arthritis of right knee; Translations: [Unilateral primary osteoarthritis, right knee] Onset: 2 Resolved: 2 Chronic Other aftercare (1 source) long term care administrator (current) use of oral hypoglycemic drugs; Translations: [NURSING HOME USE ORAL HYPOGLYCEMIC DX] Onset: 3 Episodic Other aftercare (1 source) Other nursing home (current) drug therapy; Translations: [OTH CRIMINOLOGY PROFESSOR CURRENT DRUG THERAPY] Onset: 3 Episodic Other [...] hypofunction] Onset: 3 Chronic Other endocrine disorders (20 sources) Male hypogonadism; Translations: [Testicular hypofunction] Onset: 3 06-03-2023 Chronic Other liver diseases (3 sources) Lesion of liver; Translations: [Liver disease, unspecified] Chronic Other liver diseases (1 source) Fatty (change of) liver, not elsewhere classified; Translations: [FATTY CHANGE LIVER NEC] Onset: 3 Chronic Other liver diseases (15 sources) Non-alcoholic fatty liver; Translations: [Fatty (change of) liver, not elsewhere classified] Onset: 3 06-26-2023 Chronic Other liver diseases (10 sources) Non-alcoholic fatty liver disease without non-alcoholic steatohepatitis; Translations: [Fatty (change of) liver, not elsewhere [...] Chronic Other nutritional; endocrine; and metabolic disorders (8 sources) Morbid obesity; Translations: [Morbid (severe) obesity due to excess calories] Onset: 3 04-13-2019 Chronic Other nutritional; endocrine; and metabolic disorders (20 sources) Severe obesity; Translations: [Class 2 severe obesity due to excess calories with serious comorbidity and body mass index (BMI) of 37.0 to 37.9 in adult ([facility])] Onset: 3 07-15-2024 Chronic Other skin disorders (1 source) Corns and callosities; Translations: [CORNS AND CALLOSITIES] Onset: 3 Episodic Other upper respiratory disease (20 sources) Allergic rhinitis due to pollen; Translations: [...] APNEA] Onset: 3 Chronic Residual codes; unclassified (20 sources) Obstructive sleep apnea syndrome; Translations: [Obstructive sleep apnea (adult) (pediatric)] Onset: 3 06-26-2023 Chronic Residual codes; unclassified (1 source) Family history of cancer; Translations: [Family history of malignant neoplasm of prostate] Onset: 3 Episodic Residual codes; unclassified (3 sources) Family history of prostate cancer 06-03-2023 Episodic Spondylosis; intervertebral disc disorders; other back problems (20 sources) Spondylosis without myelopathy or radiculopathy, lumbar [...] SURG CIRC SYS] Onset: 2 Episodic Other aftercare (19 sources) Long-term current use of drug therapy; Translations: [Other 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 (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) drug therapy] Onset: 5 08-05-2024 Episodic Other and unspecified benign neoplasm (1 [...] LEFT KNEE] Onset: 2 Resolved: 2 Episodic Other screening for suspected conditions (not mental disorders or infectious disease) (20 sources) Encounter for screening for malignant neoplasm of prostate; Translations: [Screening for malignant neoplasm done] Onset: 3 Episodic Phlebitis; thrombophlebitis and thromboembolism (9 sources) Phlebitis and thrombophlebitis of superficial vessels of right lower extremity; Translations: [Phlebitis and thrombophlebitis of superficial vessels of left lower extremity] Onset: 2 Episodic Skin and subcutaneous tissue infections (12 sources) Cellulitis of left toe; Translations: [Abscess of abdominal wall] Onset: 3 Resolved: 5 10-13-2024 Episodic Unclassified (1 source) LOW BACK PAIN, UNSPECIFIED; Translations: [LOW BACK PAIN, UNSPECIFIED] Onset: 3 Unclassified (3 sources) Patient encounter status 06-03-2023 Varicose veins of lower extremity (5 sources) Varicose veins of bilateral lower extremities with pain; Translations: [VARICOSE VNS MARIE LOW EXTREM W/PAIN] Onset: 2 Episodic Results Test Name Value Interpretation Reference Range Facility [facility] PSA, DIAGNOSTICon 12-31 PROSTATE SPECIFIC ANTIGEN DX 1.32 ng/mL NINF - 4.00 ng/mL [facility] XR Knee - left 1 or 2 Viewso n 10-04-2024 [place] [address] XRay Report Signed Patient: CARLOS LOCKE MR#: [id number] : 1955 Acct:[id number] Age/Sex: 69 / M ADM Date: 10/04/24 Loc: Attending Dr: Daniele Cruz M.D. Ordering Physician: Daniele Cruz M.D. Date of Service: 10/04/24 Procedure(s): XR knee LT 2V Accession Number(s): [id number] cc: Daniele Cruz M.D.; Tulio Ruggiero M.D. [facility] [place] [id number] Patient Name: CARLOS LOCKE MRN: [id number] date: 1955 Sex: M Assigned Patient Location: Current Patient Location: Accession/Order Number: [id number] Exam Date: 10/04/2024 14:50 Report Date: 10/04/2024 14:51 At the request of: DANIELE CRUZ MD Procedure: XR knee LT 2V LEFT KNEE - 2 views CLINICAL HISTORY: Aftercare following joint replacement surgery of left knee COMPARISON: Left knee 2 views FINDINGS: Left TKA without hardware complication. XR/XR knee LT 2V IMPRESSION: NO HARDWARE COMPLICATION. Impression dictated by: Rehan Sheppard Jr., D.O.10/04/2024 2:51 PM Dictation Location: [place] [address] Electronically authenticated by: [id number] Y Date: 10/04/2024 14:51 Dictated By: Rehan Sheppard M.D. Signed By: 10/04/24 1453 DD/ 50 TD/TT: Incident Response Lead: [facility] Radiology, Radiologist, - 10/04/2024 [place] [address] XRay Report Signed Patient: CARLOS LOCKE MR#: [id number] : 1955 Acct:[id number] Age/Sex: 69 / M ADM Date: 10/04/24 Loc: Attending Dr: Daniele Cruz M.D. Ordering Physician: Daniele Cruz M.D. Date of Service: 10/04/24 Procedure(s): XR knee LT 2V Accession Number(s): [id number] cc: Daniele Cruz M.D.; Tulio Ruggiero M.D. [facility] [place] [address] Patient Name: CARLOS LOCKE MRN: [facility]:[id number] date: 1955 Sex: M Assigned Patient Location: Current Patient Location: Accession/Order Number: [id number] Exam Date: 10/04/2024 14:50 Report Date: 10/04/2024 14:51 At the request of: DANIELE CRUZ MD Procedure: XR knee LT 2V LEFT KNEE - 2 views CLINICAL HISTORY: Aftercare following joint replacement surgery of left knee COMPARISON: Left knee 2 views FINDINGS: Left TKA without hardware complication. XR/XR knee LT 2V IMPRESSION: NO HARDWARE COMPLICATION. Impression dictated by: Rehan Sheppard Jr., D.O.10/04/2024 2:51 PM Dictation Location: [place] [address] Electronically authenticated by: [id number] Y Date: 10/04/2024 14:51 Dictated By: Rehan Sheppard M.D. Signed By: 10/04/24 1453 DD/ 50 TD/TT: Incident Response Lead: [facility] Radiology Study observation (narrative) [facility] XR Knee - left 1 or 2 ViewsO rdered By: Radiologist Radiology on 10-04-2024 [facility] [employer] Work Phone: XR Knee - left 1 or 2 Viewso n 09-06-2024 [place] [address] XRay Report Signed Patient: CARLOS LOCKE MR#: [id number] : 1955 Acct:[id number] Age/Sex: 69 / M ADM Date: 09/06/24 Loc: EC Attending Dr: Daniele Cruz M.D. Ordering Physician: Daniele Cruz M.D. Date of Service: 09/06/24 Procedure(s): XR knee LT 2V Accession Number(s): [id number] cc: Daniele Cruz M.D.; Tulio Ruggiero M.D. [place] [address] Patient Name: CARLOS LOCKE MRN: [id number] date: 1955 Sex: M Assigned Patient Location: Current Patient Location: Accession/Order Number: [id number] Exam Date: 09/06/2024 14:51 Report Date: 09/06/2024 14:54 At the request of: DANIELE CRUZ MD Procedure: XR knee LT 2V LEFT KNEE - 2 views COMPARISON: 08/23/2024 CLINICAL DATA: Follow-up knee replacement. Knee pain. AP and lateral weightbearing views were obtained. A knee prosthesis is again visualized. The hardware appears intact and in appropriate position. There is no developing fracture or dislocation. A knee effusion is seen. XR/XR knee LT 2V IMPRESSION: SATISFACTORY APPEARANCE OF KNEE REPLACEMENT. NO ACUTE BONY FINDINGS. Impression dictated by: Brunilda Rogers M.D.09/06/2024 2:54 PM Dictation Location: [place] [address] Electronically authenticated by: [id number] Date: 09/06/2024 14:54 Dictated By: Brunilda Rogers M.D. Signed By: 09/06/24 1456 DD/ 1454 TD/TT: Incident Response Lead: [facility] Radiology, Radiologist, MD - 09/06/2024 [place] [address] XRay Report Signed Patient: CARLOS LOCKE MR#: [id number] : 1955 Acct:[id number] Age/Sex: 69 / M ADM Date: 09/06/24 Loc: Attending Dr: Daniele Cruz M.D. Ordering Physician: Daniele Cruz M.D. Date of Service: 09/06/24 Procedure(s): XR knee LT 2V Accession Number(s): [id number] cc: Dainele Cruz M.D.; Tulio Ruggiero M.D. [facility] [place] [id number] Patient Name: CARLOS LOCKE MRN: [facility]:[id number] date: 1955 Sex: M Assigned Patient Location: Current Patient Location: Accession/Order Number: [id number] Exam Date: 09/06/2024 14:51 Report Date: 09/06/2024 14:54 At the request of: DANIELE CRUZ MD Procedure: XR knee LT 2V LEFT KNEE - 2 views COMPARISON: 08/23/2024 CLINICAL DATA: Follow-up knee replacement. Knee pain. AP and lateral weightbearing views were obtained. A knee prosthesis is again visualized. The hardware appears intact and in appropriate position. There is no developing fracture or dislocation. A knee effusion is seen. XR/XR knee LT 2V IMPRESSION: SATISFACTORY APPEARANCE OF KNEE REPLACEMENT. NO ACUTE BONY FINDINGS. Impression dictated by: Brunilda Rogers M.D.09/06/2024 2:54 PM Dictation Location: [place] [address] Electronically authenticated by: [id number] Y Date: 09/06/2024 14:54 Dictated By: Brunilda Rogers M.D. Signed By: 09/06/241455 DD/ 53 TD/TT: Incident Response Lead: [facility] Radiology Study observation (narrative) [facility] XR Knee - left 1 or 2 ViewsO rdered By: Radiologist Radiology on 09-06-2024 [facility] Work Phone: ALL BASIC METABOLIC PANELon 08-24-2024 Anion gap [Moles/Vol] 14.3 mmol/L [facility] Calcium [Mass/Vol] 7.7 mg/dL Low 8.5 - 10. 1 mg/dL [facility] Chloride [Moles/Vol] 108 mmol/L High 98 - 10 7 mmol/L [facility] CO2 [Moles/Vol] 25.4 mmol/L 21.0 - 32.0 mmol/L [facility] Creatinine [Mass/Vol] 1.62 mg/dL High 0.70 - 1.30 mg/dL [facility] GFR/1.73 sq M.predicted CKD-EPI (S/P/Bld) [Vol rate/Area] 52 Low >=60 mL/min/1.73m 2 [facility] Glucose [Mass/Vol] 112 mg/dL High 74 - 106 mg/dL [facility] Interpretation and review of laboratory results Abnormal [facility] Potassium [Moles/Vol] 4.7 mmol/L 3.5 - 5.1 mmol/L [facility] Sodium [Moles/Vol] 143 mmol/L 136 - 145 mmol/L [facility] TBH EGFR-NON AF KAZAKH 43 Low >=60 mL/min/1.73m 2 [facility] Urea nitrogen [Mass/Vol] 28 mg/dL High 7.0 - 18.0 mg/dL [facility] Urea nitrogen/Creatinine [Mass ratio] 17.3 mg/mg [facility] ALL CBC WITH AUTO DIFFon BASOPHILS ABSOLUTE AUTO 0 [facility] Basophils/100 WBC (Bld) 0.6 % 0.2 - 2.0 % [facility] Eosinophils/100 WBC (Bld) 4.9 % 0.9 - 7.0 % [facility] Erythrocyte distribution width (RBC) [Ratio] 13.5 % 11.0 - 15.0 % [facility] Hematocrit (Bld) [Volume fraction] 43.4 % 42.0 - 54.0 % [facility] Hemoglobin (Bld) [Mass/Vol] 14.7 g/dL 14.0 - 18.0 g/dL [facility] IMMATURE GRANULOCYTES ABS AUTO 0.03 [facility] Immature granulocytes/100 WBC (Bld) 0.4 % 0.0 - 0.5 % [facility] Interpretation and review of laboratory results Abnormal [facility] LYMPHOCYTES ABSOLUTE AUTO 2.2 [facility] Lymphocytes/100 WBC (Bld) 30.6 % 20.5 - 60.0 % [facility] MCH (RBC) [Entitic mass] 32.8 pg 25.9 - 34.0 pg [facility] MCHC (RBC) [Mass/Vol] 33.9 g/dL 29.9 - 35.2 g/dL [facility] MCV (RBC) [Entitic vol] 96.9 fL High 80.0 - 94.0 fL [facility] MONOCYTES ABSOLUTE AUTO 0.6 [facility] Monocytes/100 WBC (Bld) 8.3 % 1.7 - 12.0 % [facility] NEUTROPHILS ABSOLUTE AUTO 3.9 [facility] Neutrophils/100 WBC (Bld) 55.2 % 43.0 - 75.0 % [facility] Platelet mean volume (Bld) [Entitic vol] 8.8 fL Low 9.5 - 13.5 fL [facility] EO # 0.4 [facility] PLT 229 [facility] TB RBC 4.48 Low [facility] TB WBC 7.1 [facility] XR Knee - left 4 Viewson [address] [address] XRay Report Signed Patient: CARLOS LOCKE MR#: [id number] : 1955 Acct:[id number] Age/Sex: 69 / M ADM Date: 08/23/24 Loc: SURGOUT Attending Dr: Daniele Cruz M.D. Ordering Physician: Daniele Cruz M.D. Date of Service: 08/23/24 Procedure(s): XR knee LT 4V Accession Number(s): [id number] cc: Daniele Cruz M.D.; Tulio Ruggiero M.D. The [address] [id number] Patient Name: CARLOS LOCKE MRN: [facility]:[id number] date: 1955 Sex: M Assigned Patient Location: SURGOUT Current Patient Location: [facility] Accession/Order Number: [id number] Exam Date: 08/23/2024 12:30 Report Date: 08/23/2024 13:05 At the request of: DANIELE CRUZ Procedure: XR knee LT 4V EXAMINATION: XR knee LT 4V HISTORY: Post op in pacu COMPARISON: No relevant comparison available. FINDINGS: BONES: Total joint replacement with the orthopedic components appearing seated in anatomic alignment. SOFT TISSUES: Postprocedural subcutaneous and joint air/fluid OTHER: Negative. XR/XR knee LT 4V IMPRESSION: 1. Total joint replacement with expected postsurgical findings. Electronically authenticated by: RACHEAL GRAVES Date: 08/23/2024 13:05 Dictated By: Racheal Graves M.D. Signed By: 08/23/24 1308 DD/ 1305 TD/TT: Incident Response Lead: [facility] Radiology, Radiologist, MD - 08/23/2024 The [place] [id number] XRay Report Signed Patient: CARLOS LOCKE MR#: [id number] : 1955 Acct:[id number] Age/Sex: 69 / M ADM Date: 08/23/24 Loc: SURGOUT Attending Dr: Daniele Cruz M.D. Ordering Physician: Daniele Cruz M.D. Date of Service: 08/23/24 Procedure(s): XR knee LT 4V Accession Number(s): [id number] cc: Daniele Cruz M.D.; Tulio Ruggiero M.D. The [address] [id number] Patient Name: CARLOS LOCKE MRN: [id number] date: 1955 Sex: M Assigned [facility] Current Patient Location: [facility] Accession/Order Number: [id number] Exam Date: 08/23/2024 12:30 Report Date: 08/23/2024 13:05 At the request of: DANIELE CRUZ Procedure: XR knee LT 4V EXAMINATION: XR knee LT 4V HISTORY: Post op in pacu COMPARISON: No relevant comparison available. FINDINGS: BONES: Total joint replacement with the orthopedic components appearing seated in anatomic alignment. SOFT TISSUES: Postprocedural subcutaneous and joint air/fluid OTHER: Negative. XR/XR knee LT 4V IMPRESSION: 1. Total joint replacement with expected postsurgical findings. Electronically authenticated by: RACHEAL GRAVES Date: 08/23/2024 13:05 Dictated By: Racheal Graves M.D. Signed By: 08/23/24 1308 DD/ 04 TD/TT: Incident Response Lead: [facility] Radiology Study observation (narrative) [facility] XR Knee - left 4 ViewsOrdere d By: Radiologist Radiology on 08-23-2024 [facility] Work Phone: ALL TYPE AND SCREENon 2024 ABO and Rh group Nom (Bld) Blood group B Rh(D) positive [facility] ALL TYPE AND SCREENon 2024 ABO and Rh group Nom (Bld) Blood group B Rh(D) positive [facility] XR Knee Standing AP Bilatera nikko 07-27-2024 [...] Electronically Signed in Other Vendor System) Normal [facility] MRI Knee Surg.Navigate or Pl an ONLY [...] Electronically Signed in Other Vendor System) Normal [facility] XR Knee 1 or 2 Views Lefton [...] Electronically Signed in Other Vendor System) Normal [facility] ALL CBC WITH AUTO DIFFon BASOPHILS ABSOLUTE AUTO 0.1 [facility] Basophils/100 WBC (Bld) 0.9 % 0.2 - 2.0 % [facility] Eosinophils/100 WBC (Bld) 4.9 % 0.9 - 7.0 % [facility] Erythrocyte distribution width (RBC) [Ratio] 13.7 % 11.0 - 15.0 % [facility] Hematocrit (Bld) [Volume fraction] 44.7 % 42.0 - 54.0 % [facility] Hemoglobin (Bld) [Mass/Vol] 14.9 g/dL 14.0 - 18.0 g/dL [facility] IMMATURE GRANULOCYTES ABS AUTO 0.02 [facility] Immature granulocytes/100 WBC (Bld) 0.3 % 0.0 - 0.5 % [facility] Interpretation and review of laboratory results Abnormal [facility] LYMPHOCYTES ABSOLUTE AUTO 1.5 [facility] Lymphocytes/100 WBC (Bld) 23 % 20.5 - 60.0 % [facility] MCH (RBC) [Entitic mass] 32.3 pg 25.9 - 34.0 pg [facility] MCHC (RBC) [Mass/Vol] 33.3 g/dL 29.9 - 35.2 g/dL [facility] MCV (RBC) [Entitic vol] 97 fL High 80.0 - 94.0 fL [facility] MONOCYTES ABSOLUTE AUTO 0.5 [facility] Monocytes/100 WBC (Bld) 7.9 % 1.7 - 12.0 % [facility] NEUTROPHILS ABSOLUTE AUTO 4.1 [facility] Neutrophils/100 WBC (Bld) 63 % 43.0 - 75.0 % [facility] Platelet mean volume (Bld) [Entitic vol] 8.8 fL Low 9.5 - 13.5 fL [facility] EO # 0.3 [facility] PLT 226 [facility] RBC 4.61 Low [facility] WBC 6.6 [facility] UA (CLEAN/CATCH) REINFORCING [employer]/AMBROSE RO IF IND.on 07-20-2024 BILIRUBIN URINE Negative NEGATIVE [facility] BLOOD URINE Negative NEGATIVE [facility] Clarity (U) CLEAR CLEAR [facility] Color (U) LT. YELLOW YELLOW [facility] GLUCOSE URINE UA Negative NEGATIVE mg/dL [facility] Ketones Ql (U) Negative NEGATIVE mg/dL [facility] Leukocyte esterase Test strip Ql (U) Negative NEGATIVE [facility] NITRITE URINE Negative NEGATIVE [facility] pH (U) 6.0 [pH] 5.0 - 9.0 [facility] PROTEIN URINE Negative NEG/TRACE mg/dL [facility] SPECIFIC GRAVITY URINE 1.025 1.005 - 1.025 [facility] URINE MICROSCOPIC INDICATED NO [facility] UROBILINOGEN URINE 0.2 EU/dL 0.2 - 1.0 EU/dL [facility] Reminderson 06-15-2024 Reminders Reminders From: Cyndi Montano To: EU - Administrative; Sent: 06/04/2024 12:06:06 EST Show up: 06/04/2024 12:05:00 EST Subject: Ambulatory Reminder Due Date/Time: 05/28/2025 12:05:00 EST Reminder/Recall Patient needs scheduled for a 1 yr f/u, PCP to check PSA. Due back in 06/07 LVM to call and schedule Normal [facility] Urology Office/Clinic Noteon 05-27-2024 Urology Office/Clinic Note Urology Office/Clinic Note Chief Complaint 5mo f/u HPI Staff 68 year old male here for 5 month with KUB. Pt unable to provide urine sample today, states [facility] rest[facility] Denies any problems today. Previous DX: increased [...] E&M of Est. Patient Moderate 30-39 Min 88301 Influenza immunization status assessed 1030F Medication list [...] specific antigen [PSA]) PSA 04/17/20 - 0.73 03/29/21 - 0.51 05/03/22 - 0.57 05/27/23 - [...] E&M of Est. Patient Moderate 30-39 Min 64794 3. Hypogonadism male (E29.1: Testicular hypofunction) Managed by PCP. On T injections. Ordered: Complex E&M Add on G2211 E&M of Est. Patient Moderate 30-39 Min 93975 4. ED (erectile dysfunction) (N52.9: Male erectile dysfunction, unspecified) Failed Tadalafil. A lot of neuropathy. Not interested in additional tx. Ordered: Complex E&M Add on G2211 E&M of Est. Patient Moderate 30-39 Min 74092 Follow-up With When Contact Information LIZ HERNANDEZ PA-C, URL Within 1 year Additional Instructions: Patient Education Kidney Stones, [id number]-Lkpr Problem List/Past Medical History Ongoing Abnormal abdominal [...] urinary obstructio (more content not included)... Normal [facility] Comment on above: Result Comment: Elec tronically Signed By: LIZ HERNANDEZ PA-C\.br\Date and Time Signed: 05/27/24 09:57 EST [place] 11-05-2023 Screens [id number]. 00TIFF Normal [facility] Screens [id number]. 00TIFF Normal [facility] Patient Educationon 11-04-19 Patient Education Urology [...] these instructions at home: Medicines ? Take jwry-wno-rqazqjb and prescription medicines only as told by [...] include cig (more content not included)... Normal [facility] Urology Office/Clinic Noteon 11-04-2023 Urology Office/Clinic [...] E&M of Est. Patient Moderate 30-39 Min 96132 3. Kidney calculi (N20.0: Calculus of kidney) [...] E&M of Est. Patient Moderate 30-39 Min 36882 XR Abdomen 1 View 4. BPH with [...] E&M of Est. Patient Moderate 30-39 Min 09322 Influenza immunization status assessed 1030F Medication list [...] E&M of Est. Patient Moderate 30-39 Min 00237 Follow-up With When Contact Information LIZ HERNANDEZ PA-C, URL [address] [place] [address] [phone] Additional Instructions: 6 mos w/ KUB Patient [...] cancer in father History of pulmonary embolism Hazel (more content not included)... [facility] Comment on above: Result Comment: Elec tronically Signed By: LIZ HERNANDEZ PA-C\.br\Date and Time Signed: 11/04/23 10:26 EDT\.br\Electronically Co-Signed By: Maru Burr\Rustybr\Date and Time Co-Signed: 11/04/23 09:31 EDT Lab Reportson 10-27-2023 Lab Reports [id number]#1.0 0TIFF [facility] XR LSPINE W_OBLS AND FLEX_EX Ton [...] RACHEAL GRAVES Date: 2022-12-05 09:46 Normal [facility] CBC AUTO DIFFon 10-21-2022 BASO # 0.1 103/ul Normal 0.0-0.1 [facility] Comment on above: Performed By: #### P OCGLUC #### [facility] [address] [place] [address] Dr. Juliet García Basophils/100 WBC (Bld) 0.7 % Normal 0.2-2.0 [facility] Comment on above: Performed By: #### P OCGLUC #### [facility] [address] [place] [address] Dr. Juliet García EO # 0.4 103/ul Normal 0.0-0.7 [facility] Comment on above: Performed By: #### P OCGLUC #### [facility] [address] [place] [address] Dr. Juliet García Eosinophils/100 WBC (Bld) 5.3 % Normal 0.9-7.0 [facility] Comment on above: Performed By: #### P OCGLUC #### [facility] [address] [place] [address] Dr. Juliet García Erythrocyte distribution width (RBC) [Ratio] 14.0 % Normal 11.0-15.0 [facility] Comment on above: Performed By: #### P OCGLUC #### [facility] [address] [place] [address] Dr. Juliet García Hematocrit (Bld) [Volume fraction] 43.6 % Normal 42.0-54.0 [facility] Comment on above: Performed By: #### P OCGLUC #### [facility] [address] [place] [address] Dr. Juliet García Hemoglobin (Bld) [Mass/Vol] 14.9 g/dL Normal 14.0-18.0 [facility] Comment on above: Performed By: #### P OCGLUC #### [facility] [address] [place] [address] Dr. Juliet García IG # 0.03 10e3/ul Normal 0.00-0.03 [facility] Comment on above: Performed By: #### P OCGLUC #### [facility] [address] [place] [address] [address] Juliet García IG % 0.4 % Normal 0.0-0.5 [facility] Comment on above: Performed By: #### P OCGLUC #### [facility] [address] [place] [address] Dr. Juliet García LYMPH # 2.0 103/ul Normal 1.2-3.8 [facility] Comment on above: Performed By: #### P OCGLUC #### [facility] [address] [place] [address] Dr. Juliet García Lymphocytes/100 WBC (Bld) 29.3 % Normal 20.5-60.0 [facility] Comment on above: Performed By: #### P OCGLUC #### [facility] [address] [place] [address] Dr. Juliet García MANUAL DIFF REQ NO Normal [facility] Comment on above: Performed By: #### P OCGLUC #### [facility] [address] [place] [address] Dr. Juliet García MCH (RBC) [Entitic mass] 33.4 pg Normal 25.9-34.0 [facility] Comment on above: Performed By: #### P OCGLUC #### [facility] [address] [place] [address] Dr. Juliet García MCHC (RBC) [Mass/Vol] 34.2 g/dL Normal 29.9-35.2 [facility] Comment on above: Performed By: #### P OCGLUC #### [facility] [address] [place] [address] Dr. Juliet García MCV (RBC) [Entitic vol] 97.8 fL Critically high 80.0-94.0 [facility] Comment on above: Performed By: #### P OCGLUC #### [facility] [address] [place] [address] Dr. Juliet García MONO # 0.7 103/ul Normal 0.3-0.8 [facility] Comment on above: Performed By: #### P OCGLUC #### [facility] [address] [place] [address] Dr. Juliet García Monocytes/100 WBC (Bld) 9.9 % Normal 1.7-12.0 [facility] Comment on above: Performed By: #### P OCGLUC #### [facility] [address] [place] [address] Dr. Juliet García NEUT # 3.7 103/ul Normal 1.4-6.5 [facility] Comment on above: Performed By: #### P OCGLUC #### [facility] [address] [place] [address] Dr. Juliet García Neutrophils/100 WBC (Bld) 54.4 % Normal 43.0-75.0 [facility] Comment on above: Performed By: #### P OCGLUC #### [facility] [address] [place] [address] Dr. Juliet García Platelet mean volume (Bld) [Entitic vol] 9.0 fL Critically low 9.5-13.5 [facility] Comment on above: Performed By: #### P OCGLUC #### [facility] [address] [place] [address] Dr. Juliet García PLT 211 103/ul Normal 150-450 [facility] Comment on above: Performed By: #### P OCGLUC #### [facility] [address] [place] [address] Dr. Juliet García RBC 4.46 106/ul Critically low 4.70-6.10 [facility] Comment on above: Performed By: #### P OCGLUC #### [facility] [address] [place] [address] Dr. Juliet García WBC 6.8 103/ul Normal 4.0-11.0 [facility] Comment on above: Performed By: #### P OCGLUC #### [facility] [address] [place] [address] Dr. Juliet García POINT OF CARE GLUCOSEon 10-12 Glucose [Mass/Vol] 100 mg/dL Normal 74-106 [facility] Comment on above: Performed By: #### P OCGLUC #### [facility] [address] [place] [address] Dr. Juliet García Glucose [Mass/Vol] 94 mg/dL Normal 74-106 [facility] Comment on above: Performed By: #### A 1C #### [facility] [address] [place] [address] Dr. Juliet García PROF CHEM 8 (BAS METB)on Anion gap [Moles/Vol] 14.0 mmol/L Normal [facility] Comment on above: Performed By: #### B MP #### [facility] [address] [place] [address] Dr. Juliet García Calcium [Mass/Vol] 9.0 mg/dL Normal 8.5-10.1 [facility] Comment on above: Performed By: #### B MP #### [facility] [address] [place] [address] Dr. Juliet García Chloride [Moles/Vol] 107 mmol/L Normal 98-107 [facility] Comment on above: Performed By: #### B MP #### [facility] [address] [place] [address] Dr. Juliet García CO2 [Moles/Vol] 28.7 mmol/L Normal 21.0-32.0 [facility] Comment on above: Performed By: #### B MP #### [facility] [address] [place] [address] Dr. Juliet García Creatinine [Mass/Vol] 1.41 mg/dL Critically high 0.70-1.30 [facility] Comment on above: Performed By: #### B MP #### [facility] [address] [place] [address] Dr. Juliet García EGFR-AF KAZAKH >60 Normal >=60 [facility] Comment on above: Performed By: #### B MP #### [facility] [address] [address] [address] Juliet García EGFR-NON AF KAZAKH 50 mL/min/1.73m2 Critically low >=60 [facility] Comment on above: Performed By: #### B MP #### [facility] [address] [address] [address] Juliet García Glucose [Mass/Vol] 95 mg/dL Normal 74-106 [facility] Comment on above: Performed By: #### B MP #### [facility] [address] [address] [address] Juliet García Potassium [Moles/Vol] 4.7 mmol/L Normal 3.5-5.1 [facility] Comment on above: Performed By: #### B MP #### [facility] [address] [address] [address] Juliet García Sodium [Moles/Vol] 145 mmol/L Normal 136-145 [facility] Comment on above: Performed By: #### B MP #### [facility] [address] [address] [address] Juliet García Urea nitrogen [Mass/Vol] 25.0 mg/dL Critically high 7.0-18.0 [facility] Comment on above: Performed By: #### B MP #### [facility] [address] [address] [address] Juliet García Urea nitrogen/Creatinine [Mass ratio] 17.7 mg/mg Normal [facility] Comment on above: Performed By: #### B MP #### [facility] [id number] Juliet García Office Visiton 07-31-2022 Follow-up visit [id number] Carlos Locke 1955 M Date Provider Department Center 07/31/2022 BENTLEY MENDOZA [facility] Family History Problem Relation Age of Onset Stroke Father Family Status - Relation Status Age at Father Level of Service:29306 MT OFFICE/OUTPATIENT ESTABLISHED MOD MDM 30-39 MIN Reason for Visit and Comments: Hyperlipidemia [182] Hypertension [815101] history of PE [Other] Normal [facility] CULTURE WOUNDon 07-24-2022 CULTURE WOUND Culture Observations : No growth of anaerobes at 72 hours. Isolate 1 Stenotrophomonas maltophilia Moderate growth of ORGANISM 1 Stenotrophomonas maltophilia ANTIBIOTIC M.I.C RX STATUS Levofloxacin 1 S F Trimethoprim/Sulfameth oxazole <=20 S F Normal [facility] Comment on above: Performed By: #### W OUNDCX ####[facility] [address] [place], [place] [address]FvDr. Juliet García GLYCOHEMOGLOBIN A1Con 2022 ADA RECOMMENDATION SEE BELOW Normal [facility] Comment on above: Result Comment: ADA RECOMMENDED LIMIT 4.0 - 6.0 ADA THERAPEUTIC TARGET < 7.0 ACTION SUGGESTED > 7.0 Performed By: #### A 1C #### [facility] [address] [address] [address] Juliet García Glucose [Mass/Vol] 111 mg/dL Normal [facility] Comment on above: Performed By: #### A 1C #### [facility] [address] [place], [place] [address] Dr. Juliet García HbA1c (Bld) [Mass fraction] 5.5 % Normal 4.5-6.2 [facility] Comment on above: Performed By: #### A 1C #### [facility] [address] [place], [place] [address] Dr. Juliet García ECHOCARDIO M/2D COMPLETEon 1 08-29-2021 ECHOCARDIO M/2D COMPLETE Patient: CARLOS LOCKE Exam Date: 06/28/2022 : 1955 Gender:M Ordering : DR LOLY BARNARD M.D. Admission #: [id number] Family : Order #: [id number] CLICK HERE TO VIEW EXAM ECHOCARDIOGRAM REPORT [...] Mcmanus M.D. on 07/04/2022 at 13:38 Normal [facility] URIC ACID SERUMon 06-10-2022 Urate [Mass/Vol] 6.9 mg/dL Normal 3.5-7.2 [facility] Comment on above: Performed By: #### A 1C #### [facility] [address] [place] [address] Dr. Juliet García XR KUB 1 VIEWon [...] RACHEAL GRAVES Date: 2022-05-28 07:31 Normal [facility] CBC AUTO DIFFon 05-03-2022 BASO # 0.1 103/ul Normal 0.0-0.1 [facility] Comment on above: Performed By: #### C BC #### [facility] [address] [address] [address] Juliet García Basophils/100 WBC (Bld) 0.9 % Normal 0.2-2.0 [facility] Comment on above: Performed By: #### C BC #### [facility] [address] [place] [address] Dr. Juliet García EO # 0.4 103/ul Normal 0.0-0.7 [facility] Comment on above: Performed By: #### C BC #### [facility] [address] [place] [address] Dr. Juliet García Eosinophils/100 WBC (Bld) 5.2 % Normal 0.9-7.0 [facility] Comment on above: Performed By: #### C BC #### [facility] [address] [place] [address] Dr. Juliet García Erythrocyte distribution width (RBC) [Ratio] 13.6 % Normal 11.0-15.0 [facility] Comment on above: Performed By: #### C BC #### [facility] [address] [place] [address] Dr. Juliet García Hematocrit (Bld) [Volume fraction] 40.5 % Critically low 42.0-54.0 [facility] Comment on above: Performed By: #### C BC #### [facility] [address] [place] [address] Dr. Juliet García Hemoglobin (Bld) [Mass/Vol] 13.7 g/dL Critically low 14.0-18.0 [facility] Comment on above: Performed By: #### C BC #### [facility] [address] [place] [address] Dr. Juliet García IG # 0.02 10e3/ul Normal 0.00-0.03 [facility] Comment on above: Performed By: #### C BC #### [facility] [address] [place] [address] Dr. Juliet García IG % 0.3 % Normal 0.0-0.5 [facility] Comment on above: Performed By: #### C BC #### [facility] [address] [place] [address] Dr. Juliet García LYMPH # 1.9 103/ul Normal 1.2-3.8 [facility] Comment on above: Performed By: #### C BC #### [facility] [address] [place] [address] Dr. Juliet García Lymphocytes/100 WBC (Bld) 27.7 % Normal 20.5-60.0 [facility] Comment on above: Performed By: #### C BC #### [facility] [address] [place] [address] Dr. Juliet García MANUAL DIFF REQ NO Normal [facility] Comment on above: Performed By: #### C BC #### [facility] [address] [place] [address] Dr. Juliet García MCH (RBC) [Entitic mass] 33.3 pg Normal 25.9-34.0 [facility] Comment on above: Performed By: #### C BC #### [facility] [address] [place] [address] Dr. Juliet García MCHC (RBC) [Mass/Vol] 33.8 g/dL Normal 29.9-35.2 [facility] Comment on above: Performed By: #### C BC #### [facility] [address] [place] [address] Dr. Juliet García MCV (RBC) [Entitic vol] 98.3 fL Critically high 80.0-94.0 [facility] Comment on above: Performed By: #### C BC #### [facility] [address] [place] [address] Dr. Juliet García MONO # 0.7 103/ul Normal 0.3-0.8 [facility] Comment on above: Performed By: #### C BC #### [facility] [address] [place] [address] Dr. Juliet García Monocytes/100 WBC (Bld) 9.9 % Normal 1.7-12.0 [facility] Comment on above: Performed By: #### C BC #### [facility] [address] [place] [address] Dr. Juliet García NEUT # 3.8 103/ul Normal 1.4-6.5 [facility] Comment on above: Performed By: #### C BC #### [facility] [address] [place] [address] Dr. Juliet García Neutrophils/100 WBC (Bld) 56.0 % Normal 43.0-75.0 [facility] Comment on above: Performed By: #### C BC #### [facility] [address] [address] [address] Juliet García Platelet mean volume (Bld) [Entitic vol] 9.0 fL Critically low 9.5-13.5 [facility] Comment on above: Performed By: #### C BC #### [facility] [address] [address] [address] Juliet García PLT 201 103/ul Normal 150-450 [facility] Comment on above: Performed By: #### C BC #### [facility] [address] [address] [address] Juliet García RBC 4.12 106/ul Critically low 4.70-6.10 [facility] Comment on above: Performed By: #### C BC #### [facility] [address] [address] [address] Juliet García WBC 6.7 103/ul Normal 4.0-11.0 [facility] Comment on above: Performed By: #### C BC #### [facility] [address] [place] [address] Dr. Juliet García GLYCOHEMOGLOBIN A1Con 2021 ADA RECOMMENDATION SEE BELOW Normal [facility] Comment on above: Result Comment: ADA RECOMMENDED LIMIT 4.0 - 6.0 ADA THERAPEUTIC TARGET < 7.0 ACTION SUGGESTED > 7.0 Performed By: #### A 1C #### [facility] [address] [place] [address] Dr. Juliet García Glucose [Mass/Vol] 108 mg/dL Normal [facility] Comment on above: Performed By: #### A 1C #### [facility] [address] [place] [address] Dr. Juliet García HbA1c (Bld) [Mass fraction] 5.4 % Normal 4.5-6.2 [facility] Comment on above: Performed By: #### A 1C #### [facility] [address] [place] [address] Dr. Juliet García LIPID PROFILEon 05-03-2022 CHOL-HDL RATIO NORM SEE BELOW Normal [facility] Comment on above: Result Comment: 3.3 - 4.4 LOW RISK 4.4 - 7.1 AVERAGE RISK 7.1 - 11.0 MODERATE RISK >11.0 HIGH RISK Performed By: #### L IPID, CMP #### [facility] [address] [address] [address] Juliet García Cholesterol [Mass/Vol] 154 mg/dL Normal <=200 [facility] Comment on above: Performed By: #### L IPID, CMP #### [facility] [address] [address] [address] Juliet García Cholesterol in HDL [Mass/Vol] 29 mg/dL Critically low 40-60 [facility] Comment on above: Performed By: #### L IPID, CMP #### [facility] [address] [place] [address] Dr. Julite García Cholesterol in LDL [Mass/Vol] 64.2 mg/dL Normal [facility] Comment on above: Performed By: #### L IPID, CMP #### [facility] [address] [place] [address] Dr. Juliet García Cholesterol.total/Ch olesterol in HDL [Mass ratio] 5.3 {ratio} Normal [facility] Comment on above: Performed By: #### L IPID, CMP #### [facility] [address] [place] [address] Dr. Juliet García HDL NORMAL > or = 60 mg/dl - LO W CARDIOVASCULAR RISK <40 mg/dl - HIGH CARDIOVASCULAR RISK Normal [facility] Comment on above: Performed By: #### L IPID, CMP #### [facility] [address] [address] [address] Juliet García LDL CALC NORMAL SEE BELOW Normal [facility] Comment on above: Result Comment: <100 mg/dl OPTIMAL 100 - 129 mg/dl NEAR OR ABOVE OPTIMAL 130 - 159 mg/dl BORDERLINE HIGH 160 - 189 mg/dl HIGH >190 mg/dl VERY HIGH Performed By: #### L IPID, CMP #### [facility] [address] [address] [address] Juliet García Triglyceride [Mass/Vol] 304 mg/dL Critically high <=150 [facility] Comment on above: Performed By: #### L IPID, CMP #### [facility] [address] [address] [address] Juliet García VLDL CALC 60.8 mg/dL Normal [facility] Comment on above: Performed By: #### L IPID, CMP #### [facility] [address] [place] [address] Dr. Juliet García PROF 14(COMP METB)on 022 Albumin [Mass/Vol] 3.7 g/dL Normal 3.4-5.0 [facility] Comment on above: Performed By: #### L IPID, CMP #### [facility] [address] [place] [address] Dr. Juliet García Albumin/Globulin [Mass ratio] 1.1 {ratio} Normal [facility] Comment on above: Performed By: #### L IPID, CMP #### [facility] [address] [place] [address] Dr. Juliet García ALP [Catalytic activity/Vol] 87 U/L Normal 46-116 [facility] Comment on above: Performed By: #### L IPID, CMP #### [facility] [address] [place] [address] Dr. Juliet García ALT [Catalytic activity/Vol] 52 U/L Normal 16-63 [facility] Comment on above: Performed By: #### L IPID, CMP #### [facility] [address] [place] [address] Dr. Juliet García Anion gap [Moles/Vol] 11.5 mmol/L Normal [facility] Comment on above: Performed By: #### L IPID, CMP #### [facility] [address] [place] [address] Dr. Juliet García AST [Catalytic activity/Vol] 27 U/L Normal 15-37 [facility] Comment on above: Performed By: #### L IPID, CMP #### [facility] [address] [place] [address] Dr. Juliet García Bilirubin [Mass/Vol] 0.4 mg/dL Normal 0.2-1.0 [facility] Comment on above: Performed By: #### L IPID, CMP #### [facility] [address] [place] [address] Dr. Juliet García Calcium [Mass/Vol] 8.7 mg/dL Normal 8.5-10.1 [facility] Comment on above: Performed By: #### L IPID, CMP #### [facility] [address] [place] [address] Dr. Juliet García Chloride [Moles/Vol] 106 mmol/L Normal 98-107 [facility] Comment on above: Performed By: #### L IPID, CMP #### [facility] [address] [place] [address] Dr. Juliet García CO2 [Moles/Vol] 28.2 mmol/L Normal 21.0-32.0 [facility] Comment on above: Performed By: #### L IPID, CMP #### [facility] [address] [place] [address] Dr. Juliet García Creatinine [Mass/Vol] 1.21 mg/dL Normal 0.70-1.30 [facility] Comment on above: Performed By: #### L IPID, CMP #### [facility] [address] [place] [address] Dr. Juliet García EGFR-AF KAZAKH >60 Normal >=60 [facility] Comment on above: Performed By: #### L IPID, CMP #### [facility] [address] [place] [address] Dr. Juliet García EGFR-NON AF KAZAKH =60 Normal >=60 [facility] Comment on above: Performed By: #### L IPID, CMP #### [facility] [address] [place] [address] Dr. Juliet García Globulin (S) [Mass/Vol] 3.4 g/dL Normal [facility] Comment on above: Performed By: #### L IPID, CMP #### [facility] [address] [place] [address] Dr. Juliet García Glucose [Mass/Vol] 100 mg/dL Normal 74-106 [facility] Comment on above: Performed By: #### L IPID, CMP #### [facility] [address] [place] [address] Dr. Juliet García Potassium [Moles/Vol] 4.7 mmol/L Normal 3.5-5.1 [facility] Comment on above: Performed By: #### L IPID, CMP #### [facility] [address] [place] [address] Dr. Juliet García Protein [Mass/Vol] 7.1 g/dL Normal 6.4-8.2 [facility] Comment on above: Performed By: #### L IPID, CMP #### [facility] [address] [place] [address] Dr. Juliet García Sodium [Moles/Vol] 141 mmol/L Normal 136-145 [facility] Comment on above: Performed By: #### L IPID, CMP #### [facility] [address] [place] [address] Dr. Juliet García Urea nitrogen [Mass/Vol] 23.0 mg/dL Critically high 7.0-18.0 [facility] Comment on above: Performed By: #### L IPID, CMP #### [facility] [address] [place] [address] Dr. Juliet García Urea nitrogen/Creatinine [Mass ratio] 19.0 mg/mg Normal [facility] Comment on above: Performed By: #### L IPID, CMP #### [facility] [address] [place] [address] Dr. Juliet García VC CONSULT FOLLOWUPon 2021 VC CONSULT FOLLOWUP Patient: CARLOS LOCKE Exam Date: 04/08/2022 : 1955 Gender:M Ordering : DR RACHEAL GRAVES M.D. Admission #: [id number] Family : Order #: [id number] CLICK HERE [...] MD on 04/08/2022 at 11:30 Normal [facility] VC EXT VENOUS RT LIMITEDon 0 04-08-2022 VC EXT VENOUS RT LIMITED Patient: CARLOS LOCKE Exam Date: 04/08/2022 : 1955 Gender:M Ordering : DR RACHEAL GRAVES M.D. Admission #: [id number] Family : Order #: [id number] CLICK HERE TO VIEW EXAM RADIOLOGY REPORT [...] Graves MD on 04/08/2022 at 11:31 Normal [facility] VC INJ FOAM SCLERO W US MLTI on 04-03-2022 VC INJ FOAM SCLERO W US MLTI Patient: CARLOS LOCKE Exam Date: 04/03/2022 : 1955 Gender:M Ordering : DR RACHEAL GRAVES M.D. Admission #: [id number] Family : DR NATHALY BOONE . Order #: [id number] CLICK HERE TO VIEW EXAM RADIOLOGY REPORT [...] av (more content not included)... Normal [facility] VC CONSULT FOLLOWUPon 2021 VC CONSULT FOLLOWUP Patient: CARLOS LOCKE Exam Date: 03/25/2022 : 1955 Gender:M Ordering : DR RACHEAL GRAVES M.D. Admission #: [id number] Family : Order #: [id number] CLICK HERE TO VIEW EXAM RADIOLOGY REPORT [...] Kenny M.D. on 03/25/2022 at 08:41 Normal [facility] VC EXT VENOUS RT LIMITEDon 0 03-25-2022 VC EXT VENOUS RT LIMITED Patient: CARLOS LOCKE. Exam Date: 03/25/2022 : 1955 Gender:M Ordering : DR RACHEAL GRAVES M.D. Admission #: [id number] Family : Order #: [id number] CLICK HERE TO VIEW EXAM RADIOLOGY REPORT [...] Kenny M.D. on 03/25/2022 at 08:39 Normal [facility] VC ENDOVENOUS ABL 1ST V RTon 03-19-2022 VC ENDOVENOUS ABL 1ST V RT Patient: CARLOS LOCKE. Exam Date: 03/19/2022 : 1955 Gender:M Ordering : DR RACHEAL GRAVES M.D. Admission #: [id number] Family : Order #: [id number] CLICK HERE TO VIEW EXAM RADIOLOGY REPORT PROCEDURE: VEIN CENTER ENDOVENOUS ABLATION FIRST VEIN RIGHT GREAT SAPHENOUS VEIN COMPARISON: None. INDICATIONS: Pain co-occurrent and due to varicose veins of bilateral legs I83.813 OPERATIVE REPORT: The risks and benefits of the procedure had been previously discussed, and were rediscussed at length. Informed written consent was obtained by and Manjit Moo assisted. Time out procedure was performed. The [...] Graves MD on 03/19/2022 at 08:58 Normal [facility] VC CONSULT FOLLOWUPon 2021 VC CONSULT FOLLOWUP Patient: CARLOS LOCKE Exam Date: 02/18/2022 : 1955 Gender:M Ordering : DR RACHEAL GRAVES M.D. Admission #: [id number] Family : Order #: [id number] CLICK HERE TO VIEW EXAM RADIOLOGY REPORT [...] Graves MD on 02/18/2022 at 09:45 Normal [facility] VC EXT VENOUS LT LIMITEDon 0 02-18-2022 VC EXT VENOUS LT LIMITED Patient: CARLOS LOCKE Exam Date: 02/18/2022 : 1955 Gender:M Ordering : DR RACHEAL GRAVES M.D. 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 *Exam performed in accordance with [facility] practice guidelines- Peripheral venous ultrasound, October 07, 2009. CONCLUSION: Post ablation occlusion of left leg varicose veins Dictated by: Racheal Graves MD on 02/18/2022 at 09:32 Approved by: Racheal Graves MD on 02/18/2022 at 09:36 Normal [facility] VC INJ FOAM SCLERO W US MLTI on 02-13-2022 VC INJ FOAM SCLERO W US MLTI Patient: CARLOS LOCKE Exam Date: 02/13/2022 : 1955 Gender:M Ordering : DR RACHEAL GRAVES M.D. Admission #: [id number] Family : Order #: [id number] CLICK HERE TO VIEW EXAM RADIOLOGY REPORT [...] Kenny M.D. on 02/13/2022 at 10:15 Normal [facility] VC CONSULT FOLLOWUPon 2021 VC CONSULT FOLLOWUP Patient: CARLOS LOCKE Exam Date: 02/06/2022 : 1955 Gender:M Ordering : DR RACHEAL GRAVES M.D. Admission #: [id number] Family : Order #: [id number] CLICK HERE TO VIEW EXAM RADIOLOGY REPORT [...] Kenny M.D. on 02/06/2022 at 09:53 Normal [facility] EXT VENOUS LT LIMITEDon 0 02-06-2022 VC EXT VENOUS LT LIMITED Patient: CARLOS LOCKE Exam Date: 02/06/2022 : 1955 Gender:M Ordering : DR RACHEAL GRAVES M.D. Admission #: [id number] Family : Order #: [id number] CLICK HERE TO VIEW EXAM RADIOLOGY REPORT [...] Elin Kenny M.D. on 02/06/2022 at 09:49 [facility] ADA RECOMMENDATION SEE BELOW Normal [facility] Comment on above: Result Comment: ADA RECOMMENDED LIMIT 4.0 - 6.0 ADA THERAPEUTIC TARGET < 7.0 ACTION SUGGESTED > 7.0 Performed By: #### A 1C #### [facility] [address] [address] [address] Juliet García Glucose [Mass/Vol] 108 mg/dL Normal [facility] Comment on above: Performed By: #### A 1C #### [facility] [address] [address] [address] Juliet García HbA1c (Bld) [Mass fraction] 5.4 % Normal 4.5-6.2 [facility] Comment on above: Performed By: #### A 1C #### [facility] [address] [address] [address] Juliet García PROF 14(COMP METB)on 022 Albumin [Mass/Vol] 4.0 g/dL Normal 3.4-5.0 [facility] Comment on above: Performed By: #### C MP ####[facility] [address] [address]DrRusty García Albumin/Globulin [Mass ratio] 1.2 {ratio} Normal [facility] Comment on above: Performed By: #### C MP ####[facility] [address] [address]DrRusty García ALP [Catalytic activity/Vol] 89 U/L Normal 46-116 [facility] Comment on above: Performed By: #### C MP ####[facility] [address] [address]DrRusty García ALT [Catalytic activity/Vol] 81 U/L Critically high 16-63 [facility] Comment on above: Performed By: #### C MP ####[facility] [address] [address]DrRusty García Anion gap [Moles/Vol] 13.6 mmol/L Normal [facility] Comment on above: Performed By: #### C MP ####[facility] [address] [address]Dr. Juliet García AST [Catalytic activity/Vol] 32 U/L Normal 15-37 [facility] Comment on above: Performed By: #### C MP ####[facility] [address] [place], [place] [address]Aj. Juliet García Bilirubin [Mass/Vol] 0.5 mg/dL Normal 0.2-1.0 [facility] Comment on above: Performed By: #### C MP ####[facility] [address] [address]Dr. Juliet García Calcium [Mass/Vol] 8.9 mg/dL Normal 8.5-10.1 [facility] Comment on above: Performed By: #### C MP ####[facility] [address] [address]Dr. Juliet García Chloride [Moles/Vol] 106 mmol/L Normal 98-107 [facility] Comment on above: Performed By: #### C MP ####[facility] [address] [address]Dr. Juliet García CO2 [Moles/Vol] 27.1 mmol/L Normal 21.0-32.0 [facility] Comment on above: Performed By: #### C MP ####[facility] [address] [address]Dr. Juliet García Creatinine [Mass/Vol] 1.46 mg/dL Critically high 0.70-1.30 [facility] Comment on above: Performed By: #### C MP ####[facility] [address] [address]Dr. Juliet García EGFR-AF KAZAKH 59 mL/min/1.73m2 Critically low >=60 [facility] Comment on above: Performed By: #### C MP ####[facility] [address] [address]Dr. Juliet García EGFR-NON AF KAZAKH 48 mL/min/1.73m2 Critically low >=60 [facility] Comment on above: Performed By: #### C MP ####[facility] [address] [id number]. Juliet García Globulin (S) [Mass/Vol] 3.4 g/dL Normal [facility] Comment on above: Performed By: #### C MP ####[facility] [address] [address]Dr. Juliet García Glucose [Mass/Vol] 93 mg/dL Normal 74-106 [facility] Comment on above: Performed By: #### C MP ####[facility] [address] [address]Dr. Juliet Ricky Potassium [Moles/Vol] 4.7 mmol/L Normal 3.5-5.1 [facility] Comment on above: Performed By: #### C MP ####[facility] [address] [address]Dr. Juliet García Protein [Mass/Vol] 7.4 g/dL Normal 6.4-8.2 [facility] Comment on above: Performed By: #### C MP ####[facility] [address] [address]Dr. Juliet García Sodium [Moles/Vol] 142 mmol/L Normal 136-145 [facility] Comment on above: Performed By: #### C MP ####[facility] [address] [address]Dr. Dianajavier Ricky Urea nitrogen [Mass/Vol] 25.0 mg/dL Critically high 7.0-18.0 [facility] Comment on above: Performed By: #### C MP ####[facility] [address] [address]Dr. Juliet Ricky Urea nitrogen/Creatinine [Mass ratio] 17.1 mg/mg Normal [facility] Comment on above: Performed By: #### C MP ####[facility] [address] [place], [place] [address]Dr. Juliet García VC ENDOVENOUS ABL 1ST V LTon 01-30-2022 VC ENDOVENOUS ABL 1ST V LT Patient: CARLOS LOCKERusty Exam Date: 01/30/2022 : 1955 Gender:M Ordering : DR RACHEAL GRAVES M.D. Admission #: [id number] Family : Order #: [id number] CLICK HERE TO VIEW EXAM RADIOLOGY REPORT [...] M.D. on 01/30/2022 at 12:00 Normal [facility] POINT OF CARE GLUCOSEon 01-11 Glucose [Mass/Vol] 84 mg/dL Normal 74-106 [facility] Comment on above: Performed By: #### P OCGLUC #### [facility] [address] [place] [address] Dr. Juliet García VC COMP CONSULTATIONon 01-21 VC COMP CONSULTATION Patient: CARLOS LOCKE Exam Date: 01/21/2022 : 1955 Gender:M Ordering : DR RACHEAL GRAVES M.D. Admission #: [id number] Family : Order #: [id number] CLICK HERE TO VIEW EXAM RADIOLOGY REPORT [...] for years. The patient is retired from [employer] after working 42 years. The patient [...] incompetent branch saphenous tributary/varicose veins. 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 PHYSICAL EXAM: The right leg demonstrates [...] pulses were present bilaterally. IMPRESSION: 1. Bilateral wbgu-[id number] great saphenous vein and mild right small [...] Graves MD on 01/21/2022 at 11:46 Normal [facility] VC VENOUS REFLUX MARIE LMTon 0 01-21-2022 VC VENOUS REFLUX MARIE LMT Patient: CARLOS LOCKE Exam Date: 01/21/2022 : 1955 Gender:M Ordering : DR RACHEAL GRAVES M.D. Admission #: [id number] Family : DR NATHALY BOONE . Order #: [id number] CLICK HERE TO VIEW EXAM RADIOLOGY REPORT [...] Compressibility: Normal. Flow: Mild deep venous reflux. Wet Roller: Post/prox calf 5.9mm, 0.7s reflux. Prox/med calf [...] MD on 01/21/2022 at 10:40 Normal [facility] POINT OF CARE GLUCOSEon 06- Glucose [Mass/Vol] 87 mg/dL Normal 74-106 [facility] Comment on above: Performed By: #### P OCGLUC ####[facility] [address] [address]Dr. Juliet García SURGICAL PATHOLOGYon 021 SURGICAL PATHOLOGY Specimen #: [id number] Submitting Physician: JULIET GARCÍA M.D. FINAL DIAGNOSIS [place], [place]; [id number] (12/07/2020) Liver, mass , biopsy (A1, A2, [...] do not hesitate to contact us at [phone] with questions or if additional follow up information becomes available. This case was reviewed in conjunction with the GI pathology fellow, Apoorva Diallo MD. The following stains were performed at the [facility] in order to further characterize this case: [...] determined by [facility]'s [facility] [place] [facility] in a manner consistent with CLIA requirements. One or more of these tests have not been cleared or approved by the FDA. [facility] is regulated under CLIA as qualified to perform high-complexity testing. These tests are used for clinical purposes. They should not be regarded as investigational or for research. Nicolasa Cheema M.D. (Electronic Signature) _ SPECIMEN SUBMITTED A: 12 slides [id number] CLINICAL DATA [facility] Date of Report: 03/27/2021 Date of Procedure: 03/16/2021 Date of Receipt: 03/15/2021 Submitted by: JULIET GARCÍA M.D. Location: Diagnostic interpretation performed at [facility], [address] [place] [address]. CLIA Number: [id number] Normal [facility] Lab Comment on above: Performed By: #### S #### See report for performing lab information. Vital Signs Date Time Vital Sign Value Performing Clinician Facility 01-12-2025 08:53-0400 Body height 188 cm Tulio Ruggiero MD Work Phone: [facility] 01-12-2025 08:53-0400 Body mass index (BMI) [Ratio] 37.62 kg/m2 Tulio Ruggiero MD Work Phone: [facility] 01-12-2025 08:53-0400 Body temperature 97.11 [degF] Tulio Ruggiero MD Work Phone: [facility] 01-12-2025 08:53-0400 Body weight 132.9 kg Tulio Ruggiero MD Work Phone: [facility] 01-12-2025 08:53-0400 Diastolic blood pressure 84 mm[Hg] Tulio Ruggiero MD Work Phone: [facility] 01-12-2025 08:53-0400 Heart rate 84 /min Tulio Ruggiero MD Work Phone: [facility] 01-12-2025 08:53-0400 Respiratory rate 20 /min Tulio Ruggiero MD Work Phone: [facility] 01-12-2025 08:53-0400 SaO2% (BldA) [Mass fraction] 98 % Tulio Ruggiero MD Work Phone: [facility] 01-12-2025 08:53-0400 Systolic blood pressure 138 mm[Hg] Tulio Ruggiero MD Work Phone: [facility] 10-13-2024 13:22-0400 Body height 188 cm Tulio Ruggiero MD Work Phone: [facility] 10-13-2024 13:22-0400 Body mass index (BMI) [Ratio] 38.26 kg/m2 Tulio Ruggiero MD Work Phone: [facility] 10-13-2024 13:22-0400 Body temperature 97.11 [degF] Tulio Ruggiero MD Work Phone: [facility] 10-13-2024 13:22-0400 Body weight 135.17 kg Tulio Ruggiero MD Work Phone: [facility] 10-13-2024 13:22-0400 Diastolic blood pressure 72 mm[Hg] Tulio Ruggiero MD Work Phone: [facility] 10-13-2024 13:22-0400 Heart rate 97 /min Tulio Ruggiero MD Work Phone: [facility] 10-13-2024 13:22-0400 Respiratory rate 18 /min Tulio Ruggiero MD Work Phone: [facility] 10-13-2024 13:22-0400 SaO2% (BldA) [Mass fraction] 99 % Tulio Ruggiero MD Work Phone: [facility] 10-13-2024 13:22-0400 Systolic blood pressure 136 mm[Hg] Tulio Ruggiero MD Work Phone: [facility] 07-15-2024 09:11-0500 Body mass index (BMI) [Ratio] 37.75 kg/m2 Tulio Ruggiero MD Work Phone: [facility] 07-15-2024 09:11-0500 Body temperature 98.4 [degF] Tulio Ruggiero MD Work Phone: [facility] 07-15-2024 09:11-0500 Body weight 133.36 kg Tulio Ruggiero MD Work Phone: [facility] 07-15-2024 09:11-0500 Diastolic blood pressure 60 mm[Hg] Tulio Ruggiero MD Work Phone: [facility] 07-15-2024 09:11-0500 Heart rate 96 /min Tulio Ruggiero MD Work Phone: [facility] 07-15-2024 09:11-0500 Respiratory rate 18 /min Tulio Ruggiero MD Work Phone: [facility] 07-15-2024 09:11-0500 SaO2% (BldA) [Mass fraction] 96 % Tulio Ruggiero MD Work Phone: [facility] 07-15-2024 09:11-0500 Systolic blood pressure 114 mm[Hg] Tulio Ruggiero MD Work Phone: [facility] 05-27-2024 08:56-0500 Blood Pressure Location LIZ DAVID [facility] 05-27-2024 08:56-0500 Body temperature 98.6 [degF] LIZ DAVID [facility] 05-27-2024 08:56-0500 Diastolic blood pressure 67 mm[Hg] LIZ DAVID [facility] 05-27-2024 08:56-0500 Heart rate 79 /min LIZ DAVID [facility] 05-27-2024 08:56-0500 Respiratory rate 18 /min LIZ DAVID [facility] 05-27-2024 08:56-0500 Systolic blood pressure 117 mm[Hg] LIZ DAVID [facility] 11-04-2023 08:38-0400 Blood Pressure Location LIZ DAVID [facility] 11-04-2023 08:38-0400 Diastolic blood pressure 82 mm[Hg] LIZ DAVID [facility] 11-04-2023 08:38-0400 Heart rate 80 /min LIZ DAVID [facility] 11-04-2023 08:38-0400 Respiratory rate 16 /min LIZ DAVID [facility] 11-04-2023 08:38-0400 Systolic blood pressure 131 mm[Hg] LIZ DAVID [facility] 06-03-2023 09:59-0500 Blood Pressure Location LIZ DAVID [facility] 06-03-2023 09:59-0500 Diastolic blood pressure 74 mm[Hg] LIZ DAVID [facility] 06-03-2023 09:59-0500 Heart rate 70 /min LIZ DAVID [facility] 06-03-2023 09:59-0500 Respiratory rate 16 /min LIZ DAVID [facility] 06-03-2023 09:59-0500 Systolic blood pressure 138 mm[Hg] LIZ DAVID [facility] 05-23-2022 09:45-0500 Body height 187.96 cm Alejandra Olexa Other [employer] [facility] [employer] Other 05-23-2022 09:45-0500 Body mass index (BMI) [Ratio] 40.57 kg/m2 Alejandra Olexa Other [facility] Other 05-23-2022 09:45-0500 Body weight 143.34 kg Alejandra Olexa Other [facility] Other 08-07-2021 14:15-0500 Body height 187.96 cm Alejandra Olexa Other [facility] Other 08-07-2021 14:15-0500 Body mass index (BMI) [Ratio] 40.64 kg/m2 Alejandra Olexa Other [facility] Other 08-07-2021 14:15-0500 Body weight 143.61 kg Alejandra Olexa Other [facility] Other 04-12-2021 10:30-0400 Body height 187.96 cm Racheal Daniels Other [facility] Other 04-12-2021 10:30-0400 Body mass index (BMI) [Ratio] 41.75 kg/m2 Racheal Daniels Other [facility] Other 04-12-2021 10:30-0400 Body weight 147.51 kg Racheal Daniels Other [facility] Other 04-12-2021 10:30-0400 Diastolic blood pressure 71 mm[Hg] Racheal Daniels Other [facility] Other 04-12-2021 10:30-0400 Systolic blood pressure 131 mm[Hg] Racheal Daniels Other [facility] Other Encounters Encounter Date Encounter Type Care Provider Facility Start: 06-02-2025 ambulatory LIZ Martinez ty:YAYA Rodriguez Start: 01-12-2025 End: 01-12-2025 Bamboo flowsheet Tulio Ruggiero MD Work Phone: [facility] Start: 01-12-2025 End: 01-12-2025 Bamboo flowsheet Tulio Ruggiero MD Work Phone: [facility] Start: 01-12-2025 End: 01-12-2025 Office outpatient visit 25 minutes Tulio Ruggiero MD Work Phone: [facility] Comment on above: Type 2 diabetes sol itus with hyperglycemia, without long-term current use of insulin (HCC) (Primary Dx); Arthritis, gouty; Seasonal allergic rhinitis due to pollen; Primary insomnia; Degeneration of intervertebral disc of lumbar region with discogenic back pain; Class 2 severe obesity due to excess calories with serious comorbidity and body mass index (BMI) of 37.0 to 37.9 in adult ([facility]); Type 2 diabetes mellitus with diabetic chronic kidney disease ([facility]); Chronic kidney disease, stage 3a ([facility]) Start: 12-31-2024 End: 12-31-2024 Clinisync Result Encounter Generic External Data Provider [facility] External Department Unsolicited Start: 12-31-2024 End: 12-31-2024 Clinisync Result Encounter Generic External Data Provider [facility] External Department Unsolicited Start: 12-06-2024 End: 12-07-2024 Refill Tulio Ruggiero MD Work Phone: [facility] Comment on above: Polyneuropathy due t o type 2 diabetes mellitus ([facility]) Start: 11-08-2024 End: 11-09-2024 Refill Tulio Ruggiero MD Work Phone: [facility] Comment on above: Male hypogonadism Start: 10-19-2024 End: 10-19-2024 Orders Only Tulio Ruggiero MD Work Phone: [facility] Comment on above: Annual physical exam (Primary Dx); Morbid obesity ([facility]); Polyneuropathy due to type 2 diabetes mellitus ([facility]); Type 2 diabetes mellitus with hyperglycemia, without long-term current use of insulin ([facility]); Arthritis, gouty Start: 10-19-2024 End: 10-19-2024 Patient encounter procedure Tulio Ruggiero MD Work Phone: [facility] Work Phone: Start: 10-13-2024 End: 10-13-2024 Bamboo flowsheet Tulio Ruggiero MD Work Phone: [facility] Start: 10-13-2024 End: 10-13-2024 Bamboo flowsheet Tulio Ruggiero MD Work Phone: [facility] Start: 10-13-2024 End: 10-13-2024 Office outpatient visit 15 minutes Tulio Ruggiero MD Work Phone: [facility] Comment on above: Abscess of abdominal wall (Primary Dx) Start: 10-13-2024 End: 10-13-2024 ambulatory TULIO RUGGIERO Not Available Start: 10-04-2024 End: 10-04-2024 Clinisync Result Encounter Generic External Data Provider [facility] External Department Unsolicited Start: 10-04-2024 End: 10-04-2024 Clinisync Result Encounter Generic External Data Provider [facility] External Department Unsolicited Start: 09-06-2024 End: 09-06-2024 Clinisync Result Encounter Generic External Data Provider [facility] External Department Unsolicited Start: 09-06-2024 End: 09-06-2024 Clinisync Result Encounter Generic External Data Provider [facility] External Department Unsolicited Start: 08-24-2024 End: 08-24-2024 Clinisync Result Encounter Generic External Data Provider [facility] External Department Unsolicited Start: 08-24-2024 End: 08-24-2024 Clinisync Result Encounter Generic External Data Provider [facility] External Department Unsolicited Start: 08-23-2024 End: 08-23-2024 Clinisync Result Encounter Generic External Data Provider [facility] External Department Unsolicited Start: 08-23-2024 End: 08-23-2024 Clinisync Result Encounter Generic External Data Provider [facility] External Department Unsolicited Start: 08-19-2024 End: 08-19-2024 Clinisync Result Encounter Generic External Data Provider [facility] External Department Unsolicited Start: 08-19-2024 End: 08-19-2024 Clinisync Result Encounter Generic External Data Provider [facility] External Department Unsolicited Start: 08-07-2024 End: 08-09-2024 Refill Tulio Ruggiero MD Work Phone: [facility] Comment on above: Morbid obesity (CMS/ HCC); 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); Type 2 diabetes mellitus with hyperglycemia, without long-term current use of insulin ([facility]) Start: 08-05-2024 End: 08-05-2024 Clinisync Result Encounter Generic External Data Provider [facility] External Department Unsolicited Start: 08-05-2024 End: 08-05-2024 Clinisync Result Encounter Generic External Data Provider [facility] External Department Unsolicited Start: 07-28-2024 End: 08-05-2024 Orders Only Tulio Ruggiero MD Work Phone: [facility] Comment on above: Type 2 diabetes sol itus with hyperglycemia, without long-term current use of insulin ([facility]) (Primary Dx); Dyslipidemia ([facility]); Class 2 severe obesity due to excess calories with serious comorbidity and body mass index (BMI) of 37.0 to 37.9 in adult ([facility]); Encounter for long-term current use of medication; Screening PSA (prostate specific antigen) Start: 07-26-2024 End: 07-26-2024 ambulatory [facility] Facility:[facility] Start: 07-23-2024 End: 07-23-2024 ambulatory [facility] Facility:[facility] Start: 07-20-2024 End: 07-20-2024 Clinisync Result Encounter [...] encounter procedure Tulio Ruggiero MD Work Phone: [facility] Work Phone: Start: 07-15-2024 End: 07-15-2024 Periodic preventive med est patient 65yrs& older Tulio Ruggiero MD Work Phone: [facility] Comment on above: Annual physical exam (Primary Dx); Encounter for preoperative assessment; Type 2 diabetes mellitus with hyperglycemia, without long-term current use of insulin ([facility]); Arthritis, gouty; Polyneuropathy due to type 2 diabetes mellitus ([facility]); Class 2 severe obesity due to excess calories with serious comorbidity and body mass index (BMI) of 37.0 to 37.9 in adult ([facility]); Dyslipidemia ([facility]) Start: 07-15-2024 End: 07-15-2024 Preoperative state Tulio Ruggiero MD Work Phone: [facility] Start: 07-15-2024 End: 07-15-2024 ambulatory TULIO RUGGIERO Not Available Start: 05-27-2024 End: 05-27-2024 ambulatory LIZ HERNANDEZ Facility:[facility] Start: 05-27-2024 End: 05-27-2024 Patient encounter procedure LIZ HERNANDEZ [facility] Start: 04-08-2024 End: 04-09-2024 Refill Tulio Ruggiero MD Work Phone: [facility] Comment on above: Polyneuropathy due t o type 2 diabetes mellitus ([facility]) Start: 04-06-2024 End: 04-07-2024 Refill Tulio Ruggiero MD Work Phone: [facility] Comment on above: Male hypogonadism Start: 01-12-2024 End: 01-12-2024 ambulatory TULIO RUGGIERO Not Available Start: 11-04-2023 End: 11-04-2023 ambulatory LIZ HERNANDEZ Facility:[facility] Start: 11-04-2023 End: 11-04-2023 Patient encounter procedure LIZ HERNANDEZ [facility] Start: 07-23-2023 Patient encounter procedure Tulio Ruggiero MD Work Phone: [facility] Start: 06-03-2023 End: 06-03-2023 Patient encounter procedure LIZ E DAVID [facility] Start: 12-05-2022 End: 12-06-[address] FELISA BERRIOS . Facility:[facility] Start: 12-03-2022 End: 12-04-[address] FELISA BERRIOS . Facility:[facility] Start: 11-29-2022 End: 11-30-2022 ambulatory NARENDRANKAZ LAKSHMIPATHY . Facility:[facility] Start: 11-12-2022 End: 11-13-[address] FELISA BERRIOS . Facility:[facility] Start: 11-05-2022 End: 11-06-[address] FELISA BERRIOS . Facility:[facility] Start: 10-28-2022 End: 10-29-[address] FELISA BERRIOS . Facility:[facility] Start: 10-21-2022 End: 10-21-[address] FELISA BERRIOS . Facility:[facility] Start: 10-18-2022 Encounter for preprocedural cardiovascular examination [facility] Start: 10-18-2022 Encounter for preprocedural laboratory examination [facility] Start: 10-16-[address] [...] . Facility:[facility] Start: 08-06-2022 End: 08-07-2022 ambulatory [facility] Noa [facility] Facility:[facility] Start: 07-31-2022 End: 07-31-2022 ambulatory BENTLEY MARTINA [facility] Start: 07-31-2022 End: 08-01-[address] [...] 05-23-2022 End: 05-23-2022 ambulatory Alejandra Cain Other [facility] Other Start: 05-23-2022 Office outpatient vi sit 15 minutes Alejandra Cain [facility] Start: 05-03-2022 End: 05-04-[address] [...] 08-07-2021 End: 08-07-2021 ambulatory Alejandra Cain Other [facility] Other Start: 08-07-2021 Office outpatient vi sit 15 minutes Alejandra Cain [facility] Start: 04-12-2021 Office outpatient vi sit 15 minutes Racheal Daniels [facility] Procedures Date Procedure Procedure Detail Performing Clinician Start: 12-31-2024 MHPT PSA, DIAGNOSTIC Ge neric External Data Provider Start: 10-04-2024 Radiologic examinati on knee 1/2 views Generic External Data Provider Start: 09-06-2024 Radiologic examinati on knee 1/2 views Generic External Data Provider Start: 08-24-2024 ALL BASIC METABOLIC PANEL Generic External Data Provider Start: 08-23-2024 Radiologic exam knee complete 4/more views Generic External Data Provider Start: 08-23-2024 ALL CBC WITH AUTO DIFF Generic External Data Provider Start: 08-19-2024 Antibody screen Generic Provider Start: 08-19-2024 ALL TYPE AND SCREEN Gen janette External Data Provider Start: 08-05-2024 Antibody screen Generic Provider Start: 08-05-2024 ALL TYPE AND SCREEN Gen janette External Data Provider Start: 07-20-2024 [facility] UA (CLEAN/CATCH) REIN[employer]CING [employer]/MICRO IF IND. Generic External Data Provider Start: 07-20-2024 ALL CBC WITH AUTO DIFF Generic External Data Provider Start: 05-03-[address] RACHEAL GRAVES Comment on above: Performed By: #### P SAD #### [facility] [address] [place] [address] Dr. Juliet García Start: 12-07-2020 CT guided biopsy NATALIE SIMONS DAVID Comment on above: LIVER. NO SEDATION. Start: 07-15-2016 Colonoscopy Tulio simons MD Work Phone: Arthroscopy of knee LIZ DAVID Bilateral cataracts (disorder) LIZ HERNANDEZ H/O: vasectomy LIZ De Jesus Titan[employer] (substance) NOLASEFERINO Oliva DAVID Comment on above: Toe Tonsillectomy LIZ HERNANDEZ Plan of Treatment Date Care Activity Detail Author Start: 07-15-2026 Screening for malign ant neoplasm of colon [facility] Start: 08-16-2025 End: 08-16-2025 Patient encounter procedure 08/16/2025 9:00 AM EST Office Visit [facility] [address] [place] [address] Tulio Ruggiero MD [address] [place] [id number] [facility] Start: 03-14-2025 Influenza vaccination Influenza Vacc ine (#1) [facility] Start: 03-10-2025 Glaucoma screening Diabetes: R etinopathy Screening [facility] Start: 01-13-2025 Urine screening for protein Diabetes: Urine Protein Screening [facility] Start: 01-12-2025 End: 01-12-2026 Hemoglobin A1c/Hemoglobin.total in Blood Hemoglobin A1c Lab Routine Type 2 diabetes mellitus with hyperglycemia, without long-term current use of insulin (HCC) Expected: 01/12/2025 (Approximate), Expires: 01/12/2026 [facility] Comment on above: Expected: 01/12/2025 (Approximate), Expires: 01/12/2026 Start: 01-12-2025 End: 01-12-2026 Microalbumin/Creatinine panel in random Urine Microalbumin / creatinine, urine ratio Lab Routine Type 2 diabetes mellitus with hyperglycemia, without long-term current use of insulin (HCC) Expected: 01/12/2025 (Approximate), Expires: 01/12/2026 [facility] Work Phone: Comment on above: Expected: 01/12/2025 (Approximate), Expires: 01/12/2026 Start: 01-12-2025 End: 01-12-2025 [facility] Comment on above: Arrived Start: 10-19-2024 End: 10-19-2025 Rubeola antibody IgG Rubeola antibody IgG Lab Routine Annual physical exam Expected: 10/19/2024 (Approximate), Expires: 10/19/2025 [facility] Work Phone: Comment on above: Expected: 10/19/2024 (Approximate), Expires: 10/19/2025 Start: 10-13-2024 End: 10-13-2024 Patient encounter procedure 10/13/2024 1:15 PM EDT Office Visit [facility] [address] [place] [address] Tulio Ruggiero MD [address] [place] [address] [facility] Comment on above: Arrived Start: 08-05-2024 End: 08-05-2025 Basic metabolic 1998 panel - Serum or Plasma Basic metabolic panel Lab Routine Encounter for long-term current use of medication Expected: 08/05/2024 (Approximate), Expires: 08/05/2025 [facility] Comment on above: Expected: 08/05/2024 (Approximate), Expires: 08/05/2025 Start: 08-05-2024 End: 08-05-2025 CBC W Auto Differential panel - Blood CBC and differential Lab Routine Encounter for long-term current use of medication Expected: 08/05/2024 (Approximate), Expires: 08/05/2025 [facility] Comment on above: Expected: 08/05/2024 (Approximate), Expires: 08/05/2025 Start: 08-05-2024 End: 08-05-2025 Hemoglobin A1c/Hemoglobin.total in Blood Hemoglobin A1c Lab Routine Type 2 diabetes mellitus with hyperglycemia, without long-term current use of insulin ([facility]) Expected: 08/05/2024 (Approximate), Expires: 08/05/2025 [facility] Work Phone: Comment on above: Expected: 08/05/2024 (Approximate), Expires: 08/05/2025 Start: 08-05-2024 End: 08-05-2025 Hepatic function 2000 panel - Serum or Plasma Hepatic function panel Lab Routine Encounter for long-term current use of medication Expected: 08/05/2024 (Approximate), Expires: 08/05/2025 [facility] Comment on above: Expected: 08/05/2024 (Approximate), Expires: 08/05/2025 Start: 08-05-2024 End: 08-05-2025 Lipid 1996 panel - Serum or Plasma Lipid panel Lab Routine Dyslipidemia ([facility]) Expected: 08/05/2024 (Approximate), Expires: 08/05/2025 [facility] Comment on above: Expected: 08/05/2024 (Approximate), Expires: 08/05/2025 Start: 08-05-2024 End: 08-05-2025 Prostate specific Ag [Mass/volume] in Serum or Plasma PSA Lab Routine Screening PSA (prostate specific antigen) Expected: 08/05/2024 (Approximate), Expires: 08/05/2025 [facility] Comment on above: Expected: 08/05/2024 (Approximate), Expires: 08/05/2025 Start: 08-05-2024 End: 08-05-2025 Thyrotropin [Units/volume] in Serum or Plasma TSH Lab Routine Class 2 severe obesity due to excess calories with serious comorbidity and body mass index (BMI) of 37.0 to 37.9 in adult ([facility]) Expected: 08/05/2024 (Approximate), Expires: 08/05/2025 [facility] Comment on above: Expected: 08/05/2024 (Approximate), Expires: 08/05/2025 Start: 07-16-2024 Hemoglobin A1c measurement Diabetes: Hemoglobin A1C [facility] Start: 07-15-2024 End: 07-15-2025 Basic metabolic 1998 panel - Serum or Plasma Basic metabolic panel Lab Routine Annual physical exam Expected: 07/15/2024 (Approximate), Expires: 07/15/2025 [facility] Comment on above: Expected: 07/15/2024 (Approximate), Expires: 07/15/2025 Start: 07-15-2024 End: 07-15-2025 CBC W Auto Differential panel - Blood CBC and differential Lab Routine Annual physical exam Expected: 07/15/2024 (Approximate), Expires: 07/15/2025 [facility] Comment on above: Expected: 07/15/2024 (Approximate), Expires: 07/15/2025 Start: 07-15-2024 End: 07-15-2025 Hemoglobin A1c/Hemoglobin.total in Blood Hemoglobin A1c Lab Routine Annual physical exam Expected: 07/15/2024 (Approximate), Expires: 07/15/2025 [facility] Work Phone: Comment on above: Expected: 07/15/2024 (Approximate), Expires: 07/15/2025 Start: 07-15-2024 End: 07-15-2025 Hepatic function 2000 panel - Serum or Plasma Hepatic function panel Lab Routine Annual physical exam Expected: 07/15/2024 (Approximate), Expires: 07/15/2025 [facility] Comment on above: Expected: 07/15/2024 (Approximate), Expires: 07/15/2025 Start: 07-15-2024 End: 07-15-2025 Lipid 1996 panel - Serum or Plasma Lipid panel Lab Routine Annual physical exam Expected: 07/15/2024 (Approximate), Expires: 07/15/2025 [facility] Comment on above: Expected: 07/15/2024 (Approximate), Expires: 07/15/2025 Start: 07-15-2024 End: 07-15-2025 Prostate specific Ag [Mass/volume] in Serum or Plasma PSA Lab Routine Annual physical exam Expected: 07/15/2024 (Approximate), Expires: 07/15/2025 [facility] Comment on above: Expected: 07/15/2024 (Approximate), Expires: 07/15/2025 Start: 07-15-2024 End: 07-15-2025 Thyrotropin [Units/volume] in Serum or Plasma TSH Lab Routine Annual physical exam Expected: 07/15/2024 (Approximate), Expires: 07/15/2025 [facility] Comment on above: Expected: 07/15/2024 (Approximate), Expires: 07/15/2025 Start: 07-15-2024 End: 07-15-2024 Patient encounter procedure [facility] Comment on above: Arrived Start: 03-14-2024 Influenza vaccination Influenza Vacc ine (#1) [facility] Start: 01-23-2024 Hemoglobin A1c measurement Diabetes: Hemoglobin A1C [facility] Start: 05-27-2022 Pneumococcal Vaccine : 65+ Years (2 of 2 - PCV) Pneumococcal Vaccine: 65+ Years (2 of 2 - PCV) [facility] Start: 1975 Urine screening for protein Diabetes: Urine Protein Screening [facility] Start: 1956 Screening for malign ant neoplasm of colon [facility] Immunizations Immunization Date Immunization Notes Care Provider [facility] 04-19-2024 influenza virus vacc ine, unspecified formulation LIZ HERNANDEZ [facility] 04-20-2023 SARS-CoV-2 mRNA (tozinameran 5y-11y) vaccine LIZ DAVID [facility] Comment on above: Result Comment: covi d 19 mRNA (cvs) 04-12-2023 influenza virus vacc ine, unspecified formulation Tulio Ruggiero MD Work Phone: [facility] 04-17-2022 influenza virus vacc ine, unspecified formulation LIZ HERNANDEZ [facility] 03-23-2022 SARS-CoV-2 (COVID-19 ) [id number] LIZ HERNANDEZ [facility] 10-23-2021 SARS-CoV-2 mRNA (hwrzpqohwqe-omjp-cvrelf e) vaccine LIZ HERNANDEZ [facility] 05-27-2021 pneumococcal polysaccharide vaccine, 23 valent LIZ HERNANDEZ [facility] 05-06-2021 SARS-CoV-2 (COVID-19 ) mRNA BNT-162b2 vax LIZ HERNANDEZ [facility] Comment on above: Result Comment: 2021: [id number] 04-07-2021 influenza virus vacc ine, unspecified formulation LIZ HERNANDEZ [facility] 09-18-2020 SARS-CoV-2 (COVID-19 ) mRNA BNT-162b2 vax LIZ HERNANDEZ [facility] 04-19-2020 influenza virus vacc ine, unspecified formulation LIZ DAVID [facility] [place] 04-15-2020 influenza virus vacc ine, unspecified formulation LIZ DAVID [facility] 04-20-2018 influenza virus vacc ine, unspecified formulation LIZ DAVID [facility] 03-24-2018 influenza virus vacc ine, unspecified formulation LIZ DAVID [facility] 05-01-2013 influenza virus vacc ine, unspecified formulation LIZ DAVID [facility] Payers Date Payer Category Payer Blue Cross Blue Shield BCBS [id number] 2022 Medicare 2022 Unknown [id number] 2022 Unknown [id number] [id number]. [id number] 2021 Medicare [id number] 2019 Unknown [id number] 2.16.840.1.375428.19 1959 Medicare [id number] 1956 Unknown [id number] 2.16.840.1.387037.3.579.2. 593 1956 Unknown [id number] 2.16.840.1.080979.3.579.2. 593 1956 Unknown [id number] 2.16.840.1.807772.3.579.2. 593 1956 Unknown [id number] 2.16.840.1.342311.3.579.2. 593 1956 Unknown [id number] 2.16.840.1.064215.3.579.2. 593 1956 Unknown [id number] 2.16.840.1.274197.3.579.2. 593 1956 Unknown [id number] 2.16.840.1.966999.3.579.2. 593 1956 Unknown [id number] 2.16.840.1.459886.3.579.2. 593 1956 Unknown [id number] 2.16.840.1.299687.3.579.2. 593 1956 Unknown [id number] 2.16.840.1.964692.3.579.2. 593 1956 Unknown [id number] 2.16.840.1.953464.3.579.2. 593 1956 Unknown [id number] 2.16.840.1.292466.3.579.2. 593 1956 Unknown [id number] 2.16.840.1.824072.3.579.2. 593 1956 Unknown [id number] 2.16.840.1.575795.3.579.2. 593 1956 Unknown [id number] 2.16.840.1.440940.3.579.2. 593 1956 Unknown [id number] 2.16.840.1.031300.3.579.2. 593 1956 Unknown [id number] 2.16.840.1.706124.3.579.2. 593 1956 Unknown [id number] 2.16.840.1.002825.3.579.2. 593 1956 Unknown [id number] 2.16.840.1.709575.3.579.2. 593 1956 Unknown [id number] 2.16.840.1.155800.3.579.2. 593 1956 Unknown [id number] 2.16.840.1.563998.3.579.2. 593 1956 Unknown [id number] 2.16.840.1.301535.3.579.2. 593 1956 Unknown [id number] 2.16.840.1.084021.3.579.2. 593 1956 Unknown [id number] 2.16.840.1.243688.3.579.2. 593 1956 Unknown [id number] 2.16.840.1.208508.3.579.2. 593 1956 Unknown [id number] 2.16.840.1.742240.3.579.2. 593 1956 Unknown [id number] 2.16.840.1.518616.3.579.2. 593 1956 Unknown [id number] 2.16.840.1.703091.3.579.2. 593 1956 Unknown [id number] 2.16.840.1.370523.3.579.2. 593 1956 Unknown [id number] 2.16.840.1.513980.3.579.2. 593 1956 Unknown [id number] 2.16.840.1.965597.3.579.2. 593 1956 Unknown [id number] 2.16.840.1.468488.3.579.2. 593 1956 Unknown [id number] 2.16.840.1.926589.3.579.2. 593 1956 Unknown [id number] 2.16.840.1.301381.3.579.2. 593 1956 Unknown [id number] 2.16.840.1.623375.3.579.2. 593 1956 Unknown [id number] 2.16.840.1.253068.3.579.2. 593 1956 Unknown [id number] 2.16.840.1.962613.3.579.2. 593 1956 Unknown [id number] 2.16.840.1.132860.3.579.2. 593 1956 Unknown [id number] 2.16.840.1.751639.3.579.2. 593 1956 Unknown [id number] 2.16.840.1.714295.3.579.2. 593 1956 Unknown [id number] 2.16.840.1.686107.3.579.2. 196 1956 Unknown [id number] 2.16.840.1.501492.3.579.2. 196 1956 Unknown [id number] 2.16.840.1.373569.3.579.2. 727 1956 Unknown [id number] 2.16.840.1.439327.3.579.2. 727 1956 Unknown [id number] 2.16.840.1.174910.3.579.2. 727 1956 Unknown [id number] 2.16.840.1.897836.3.579.2. 1259 1956 Unknown [id number] 2.16.840.1.679755.3.579.2. 1259 1956 Unknown [id number] 2.16.840.1.637438.3.579.2. 1259 Social History Date Type Detail Facility Start: 01-12-2024 End: 01-12-2025 Sex Assigned At [facility] Start: 03-10-2023 End: 06-03-2023 Tobacco smoking status Never smoked tobacco (finding) [facility] Tobacco smoking status Never [facility] Start: 03-10-2023 Tobacco use and exposure Smokeless tobacco non-user [facility] Start: 01-12-2024 End: 01-12-2025 History of Social function [facility] Healthcare Start: 1955 Sex assigned at Not on file N S Healthcare Functional Status Date Assessment Result Facility 05-27-2024 Functional Status N/A [facility] 11-04-2023 Functional Status N/A [facility] 06-03-2023 Functional Status N/A [facility] Clinical Notes 04-12-2021 to 01-12-2025 Tulio Ruggiero MD - 01/12/2025 9:44 AM Ilsa Ruggiero MD - 01/12/2025 9:44 AM Ilsa Ruggiero MD - 01/12/2025 9:43 AM Ilsa Ruggiero MD - 01/12/2025 9:43 AM EDT Note Date & Type Note Facility 01-12-2025 History of Present illness Narrative Associated Problem(s): Type 2 diabetes mellitus with hyperglycemia, without long-term current use of insulin (HCC) Reports BS controlled and due for A1C. Stick to ADA diet and limit carbs. Associated Problem(s): Seasonal allergic rhinitis due to pollen Symptoms controlled with medication and continue. Associated Problem(s): Primary insomnia Sleeping well with medication and continue. Associated Problem(s): DDD (degenerative disc disease), lumbar Pain stable and follow with pain management. Associated Problem(s): Class 2 severe obesity due to excess calories with serious comorbidity and body mass index (BMI) of 37.0 to 37.9 in adult ([facility]) Weight loss indicated. Associated Problem(s): Arthritis, gouty No flares and continue allopurinol. Images from the original note were not included. Subjective Patient ID: Carlos Locke is a 69 y.o. male who presents [...] (BMI) of 37.0 to 37.9 in adult ([facility]) Weight loss indicated. Type 2 diabetes mellitus with hyperglycemia, without long-term current use of insulin ([facility]) - Primary Reports BS controlled and due for A1C. Stick to ADA diet and limit carbs. Relevant Orders Microalbumin / creatinine, urine ratio Hemoglobin A1c Seasonal allergic rhinitis due to pollen Symptoms controlled with medication and continue. Primary insomnia Sleeping well with medication and continue. documented in this encounter [facility] 10-13-2024 History of Present illness Narrative Associated Problem(s): Abscess of abdominal wall Recent abscess but improved after drainage. Use heat PRN. Treat with bactrim. Cover with neosporin. Images from the original note were not included. Subjective Patient ID: Carlos Locke is a 69 y.o. male who presents for Follow-up (Cyst on stomach/ popped). C/o bump on right upper abdominal wall for several days. Red, painful and hot to touch. Developed brown and opened and drained foul smelling green drainage. Afebrile. Not as red since opened and drained. Not as painful. No systemic symptoms such as nausea or fatigue. Covering with bandage but not tried OTC. No heat to abdominal wall. Review of Systems Constitutional: Negative for fatigue. [...] Assessment/Plan Problem List Items Addressed This Visit Abscess of abdominal wall - Primary Recent abscess but improved after drainage. Use heat PRN. Treat with bactrim. Cover with neosporin. Relevant Medications sulfamethoxazole-trimethoprim (Bactrim DS) 800-160 MG per tablet documented in this encounter [facility] 07-23-2024 Note Procedure: AP view o f [...] Signed, Electronically Signed in Other Vendor System) [facility] 07-15-2024 History of Present illness Narrative Associated Problem(s): Dyslipidemia (CMS/[facility]) Due for labs. Associated Problem(s): Class 2 severe obesity due to excess calories with serious comorbidity and body mass index (BMI) of 37.0 to 37.9 in adult (CMS/HCC) Weight down 9 pounds in past year. Continue exercise and diet changes. Associated Problem(s): Polyneuropathy due to type 2 diabetes mellitus ([facility]) Neuropathy stable and continue neurontin. Associated Problem(s): Type 2 diabetes mellitus with hyperglycemia, without long-term current use of insulin ([facility]) Reports BS controlled and due for A1C. [...] Problem List Items Addressed This Visit Dyslipidemia ([facility]) Due for labs. Arthritis, gouty Relevant Medications probenecid (Benemid) 500 MG tablet Class 2 severe obesity due to excess calories with serious comorbidity and body mass index (BMI) of 37.0 to 37.9 in adult ([facility]) Weight down 9 pounds in past year. Continue exercise and diet changes. Type 2 diabetes mellitus with hyperglycemia, without long-term current use of insulin ([facility]) Reports BS controlled and due for A1C. Stick to ADA diet and limit carbs. Polyneuropathy due to type 2 diabetes mellitus ([facility]) Neuropathy stable and continue neurontin. Annual physical [...] documented in this encounter [facility] 05-27-2024 Hospital Discharge instructions Patient Education 05/27/2024 09:56:36 Kidney Stones, Ywaa-zj-Deac Kidney Stones Kidney stones are rock-like masses [...] Follow these instructions at home: Medicines Take yubm-wkb-jfqflmj and prescription medicines only as told by [...] Kidney Foundation (NKF): kidney.org [facility] (UCF): urologyhealth.org Contact a doctor if: You have [...] provider. Document Revised: 02/21/2023 Document Reviewed: 02/21/2023 3yy game platform Patient Education 2023 Attention Point. [facility] 11/04/2023 09:32:44 With:LIZ HERNANDEZ PA-C, URL Address: When:1 year [facility] 05[facility]27[facility]24 Note Patient Education Urology Kidney Stones [...] these instructions at home: Medicines ??? Take jnpk-skm-srtladr and prescription medicines only as told by [...] provider. Document Revised: 02/21/2023 Document Reviewed: 02/21/2023 [employer] Patient Education ? 2023 Attention Point. [facility] 11-04-2023 Hospital Discharge instructions Patient Education 11/04/2023 [...] Follow these instructions at home: Medicines Take vftz-cgc-rqvkoav and prescription medicines only as told by [...] provider. Document Revised: 09/26/2021 Document Reviewed: 09/26/2021 3yy game platform Patient Education 2022 [employer]ention [employer]. [facility] 06/03/2023 10:28:55 With:LIZ HERNANDEZ PA-C, URL Address: [address] [place] [address] [phone] When: Unknown [facility] 06-03-2023 Hospital Discharge instructions Patient Education 06/03/2023 [...] treatment? Where to find more information [employer]: www.cancer.org [employer]: www.auanet.org Contact a health care [...] provider. Document Revised: 12/24/2021 Document Reviewed: 12/24/2021 3[employer] game platform Patient Education 2022 [employer]. [facility] 05/29/2022 11:47:27 With:DAVID IVAN, LIZ Juarez, URL Address: [address] [place] [id number] When: Unknown Comments:6 mos w/ PSA [facility] 12-03-2022 Note PROCEDURE: XR FOOT [...] authenticated by: ELIN KENNY Date: 2022-12-03 09:57 [facility] 11-12-2022 Note PROCEDURE: XR FOOT L [...] authenticated by: ZAFAR FERRER Date: 2022-11-12 13:59 [facility] 10-22-2022 Note PROCEDURE: XR FOOT L [...] authenticated by: ELIN KENNY Date: 2022-10-22 07:48 [facility] 10-22-2022 Note PROCEDURE: XR FOOT L T 2V HISTORY: Pain COMPARISON: XR foot left 10/21/2022 FINDINGS: BONES:Multiple intraoperative spot fluoroscopic images demonstrate mechanical fusion of the first metatarsophalangeal joint and resection of head of first proximal phalanx. IMPRESSION: 1. Surgical changes of left first toe as detailed above. Electronically authenticated by: ELIN KENNY Date: 2022-10-22 07:46 [facility] 07-31-2022 Note Currently stable [facility] 07-31-2022 Note Hypertension is well controlled 114/64 Continue lisinopril 5 mg Recent CR elevated 1.59- his cr typically has been 1.2-1.4 - He has been on antibiotics for Lt foot infection- DFU with wound care. [facility] 07-31-2022 Note Lipid abnormalities are currently well controlled with lipitor 20 mg- LDL currently 58.6 on labs 07/26/2022 Liver function 04/2022 were normal [facility] 07-31-2022 Note UTP CARDIOLOGY PROGR ESS [...] RTC 1 year or earlier if needed [facility] 07-31-2022 Note Patient here for 6 [...] All other systems reviewed and are negative. [facility] 07-31-2022 Note CONSULTATION PROCEDURE DATE: 07/31/2022 [...] the clinic in three months' time. [facility] 07-25-2022 Note CONSULTATION CONSULTATION DATE: [...] a [place] vacation, where he visited multiple [employer] mayes and had a lot of increased [...] and will be contacted upon approval. [facility] 07-24-2022 Note PROCEDURE: XR FOOT [...] authenticated by: ELIN KENNY Date: 2022-07-24 10:21 [facility] 06-10-2022 Note PROCEDURE: XR KNEE L T 4V or > HISTORY: Pain in left knee ; chronic left knee pain COMPARISON: XR knee bilateral 05/31/2021 FINDINGS: BONES:Marked narrowing of the medial joint space with suspected wmnr-dx-kvul articulation. Moderate-marked narrowing of the lateral compartment. Mild narrowing of anterior compartment. Small periarticular osteophytes involving the margins of all 3 compartments. No fracture or dislocation. SOFT TISSUES:No visible soft tissue swelling. EFFUSION:Small joint effusion. OTHER: Negative. IMPRESSION: 1. Marked degenerative joint disease. Stable to minimally progressed. Electronically authenticated by: ELIN KENNY Date: 2022-06-10 19:35 [facility] 05-23-2022 Evaluation note Encounter Date Diagnosis [...] Pain in left knee (ICD-10 - M25.562) [facility] Other 10-11-2022 NoteCONSULTATION CONSULTATION DATE: 04/23/2022 CHIEF [...] the time being. CC: Felisa Berrios M.D.[facility] [id number] NoteCONSULTATION CONSULTATION DATE: 04/04/2022 HISTORY OF PRESENT [...] indicated. Patient agreed with plan of care.[facility] [id number] Note CONSULTATION CONSULTATION DATE: 02/14/2022 HISTORY OF [...] time unless otherwise indicated. Patient acknowledges understanding.[facility] [id number] NoteCONSULTATION PROCEDURE DATE: 02/14/2022 PREOPERATIVE DIAGNOSIS: Bilateral [...] will be followed up in the office.[facility] [id number] Evaluation note* Encounter Date Diagnosis Assessment Notes [...] Pain in left knee (ICD-10 - M25.562) [facility] Other 09-30-2021 Evaluation note* Encounter Date Diagnosis Assessment Notes Treatment Notes Treatment Clinical Notes Mar, Liver hemangioma (ICD-10 - D18.03) Mar, HODGES (nonalcoholic steatohepatitis) (ICD-10 - K75.81) [facility] Other Evaluation + Plan note Future Appointments Appointment Date:11/04/2023 08:30:00 AM Scheduled Provider:LIZ HERNANDEZ PA-C Location:[facility] Appointment Type:URO Office Visit Diagnostic Tests Pending * PSA Total 06/03/23 [facility] evaluation + Plan note Future Appointments Appointment Date:05/25/2024 08:40:00 AM Scheduled Provider:LIZ HERNANDEZ PA-C Location:[facility] Appointment Type:URO Office Visit [facility] Michael evaluation note* Diagnosis 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) documented in this encounter [facility] HealthcareEvaluation note* Diagnosis Male hypogonadism Other testicular hypofunction documented in this encounter [facility] HealthcareEvaluation note* Diagnosis Annual physical exam- Primary [...] and unspecified hyperlipidemia documented in this encounter [facility] HealthcareEvaluation note* Diagnosis Annual physical exam- Primary [...] (BMI) of 37.0 to 37.9 in adult ([facility]) Dyslipidemia ([facility]) Other and unspecified hyperlipidemia Type 2 diabetes mellitus with hyperglycemia, without long-term current use of insulin ([facility])- Primary Dyslipidemia ([facility]) Other and unspecified hyperlipidemia Class 2 severe obesity due to excess calories with serious comorbidity and body mass index (BMI) of 37.0 to 37.9 in adult ([facility]) Encounter for long-term current use of medication Screening PSA (prostate specific antigen) Special screening for malignant neoplasm of prostate documented in this encounter [facility] HealthcareEvaluation note* Diagnosis Annual physical exam- Primary Routine general medical examination at a health care facility Type 2 diabetes mellitus with hyperglycemia, without long-term current use of insulin ([facility]) Type 2 diabetes mellitus with hyperglycemia, without long-term current use of insulin ([facility])- Primary Arthritis, gouty Gouty arthropathy, unspecified Seasonal allergic rhinitis due to pollen DDD (degenerative disc disease), lumbar Degeneration of lumbar or lumbosacral intervertebral disc Polyneuropathy due to type 2 diabetes mellitus ([facility]) Primary insomnia Persistent disorder of initiating or maintaining sleep Annual physical exam- Primary Routine general medical examination at a health care facility Encounter for preoperative assessment Type 2 diabetes mellitus with hyperglycemia, without long-term current use of insulin ([facility]) Arthritis, gouty Gouty arthropathy, unspecified Polyneuropathy due to type 2 diabetes mellitus ([facility]) Class 2 severe obesity due to excess calories with serious comorbidity and body mass index (BMI) of 37.0 to 37.9 in adult ([facility]) Dyslipidemia ([facility]) Other and unspecified hyperlipidemia Morbid obesity ([facility]) Morbid obesity Polyneuropathy due to type 2 diabetes mellitus ([facility]) Type 2 diabetes mellitus with hyperglycemia, without long-term current use of insulin ([facility]) documented in this encounter [facility] HealthcareEvaluation note* Diagnosis Annual physical exam- Primary Routine general medical examination at a health care facility Type 2 diabetes mellitus with hyperglycemia, without long-term current use of insulin ([facility]) Type 2 diabetes mellitus with hyperglycemia, without long-term current use of insulin ([facility])- Primary Arthritis, gouty Gouty arthropathy, unspecified Seasonal allergic rhinitis due to pollen DDD (degenerative disc disease), lumbar Degeneration of lumbar or lumbosacral intervertebral disc Polyneuropathy due to type 2 diabetes mellitus ([facility]) Primary insomnia Persistent disorder of initiating or maintaining sleep Annual physical exam- Primary Routine general medical examination at a health care facility Encounter for preoperative assessment Type 2 diabetes mellitus with hyperglycemia, without long-term current use of insulin ([facility]) Arthritis, gouty Gouty arthropathy, unspecified Polyneuropathy due to type 2 diabetes mellitus ([facility]) Class 2 severe obesity due to excess calories with serious comorbidity and body mass index (BMI) of 37.0 to 37.9 in adult ([facility]) Dyslipidemia ([facility]) Other and unspecified hyperlipidemia Abscess of abdominal wall- Primary Cellulitis and abscess of trunk documented in this encounter [facility] HealthcareEvaluation note* Diagnosis Annual physical exam- Primary Routine general medical examination at a [facility] Type 2 diabetes mellitus with hyperglycemia, without long-term current use of insulin ([facility]) Type 2 diabetes mellitus with hyperglycemia, without long-term current use of insulin ([facility])- Primary Arthritis, gouty Gouty arthropathy, unspecified Seasonal allergic rhinitis due to pollen DDD (degenerative disc disease), lumbar Degeneration of lumbar or lumbosacral intervertebral disc Polyneuropathy due to type 2 diabetes mellitus ([facility]) Primary insomnia Persistent disorder of initiating or maintaining sleep Annual physical exam- Primary Routine general medical examination at a health care facility Encounter for preoperative assessment Type 2 diabetes mellitus with hyperglycemia, without long-term current use of insulin ([facility]) Arthritis, gouty Gouty arthropathy, unspecified Polyneuropathy due to type 2 diabetes mellitus ([facility] [facility]) Class 2 severe obesity due to excess calories with serious comorbidity and body mass index (BMI) of 37.0 to 37.9 in adult ([facility]) Dyslipidemia ([facility]) Other and unspecified hyperlipidemia Abscess of abdominal wall- Primary Cellulitis and abscess of trunk Annual physical exam- Primary Routine general medical examination at a health care facility Morbid obesity ([facility]) Morbid obesity Polyneuropathy due to type 2 diabetes mellitus ([facility]) Type 2 diabetes mellitus with hyperglycemia, without long-term current use of insulin ([facility]) Arthritis, gouty Gouty arthropathy, unspecified documented in this encounter [facility] HealthcareEvaluation note* Diagnosis Annual physical exam- Primary Routine general medical examination at a health care facility Type 2 diabetes mellitus with hyperglycemia, without long-term current use of insulin ([facility]) Type 2 diabetes mellitus with hyperglycemia, without long-term current use of insulin ([facility])- Primary Arthritis, gouty Gouty arthropathy, unspecified Seasonal allergic rhinitis due to pollen DDD (degenerative disc disease), lumbar Degeneration of lumbar or lumbosacral intervertebral disc Polyneuropathy due to type 2 diabetes mellitus ([facility]) Primary insomnia Persistent disorder of initiating or maintaining sleep Annual physical exam- Primary Routine general medical examination at a health care facility Encounter for preoperative assessment Type 2 diabetes mellitus with hyperglycemia, without long-term current use of insulin ([facility]) Arthritis, gouty Gouty arthropathy, unspecified Polyneuropathy due to type 2 diabetes mellitus ([facility]) Class 2 severe obesity due to excess calories with serious comorbidity and body mass index (BMI) of 37.0 to 37.9 in adult ([facility]) Dyslipidemia ([facility]) Other and unspecified hyperlipidemia Abscess of abdominal wall- Primary Cellulitis and abscess of trunk Male hypogonadism Other testicular hypofunction documented in this encounter [facility] HealthcareEvaluation note* Diagnosis Annual physical exam- Primary Routine general medical examination at a [facility] health care facility Type 2 diabetes mellitus with hyperglycemia, without long-term current use of insulin ([facility]) Type 2 diabetes mellitus with hyperglycemia, without long-term current use of insulin ([facility])- Primary Arthritis, gouty Gouty arthropathy, unspecified Seasonal allergic rhinitis due to pollen DDD (degenerative disc disease), lumbar Degeneration of lumbar or lumbosacral intervertebral disc Polyneuropathy due to type 2 diabetes mellitus ([facility]) Primary insomnia Persistent disorder of initiating or maintaining sleep Annual physical exam- Primary Routine general medical examination at a health care facility Encounter for preoperative assessment Type 2 diabetes mellitus with hyperglycemia, without long-term current use of insulin ([facility]) Arthritis, gouty Gouty arthropathy, unspecified Polyneuropathy due to type 2 diabetes mellitus ([facility]) Class 2 severe obesity due to excess calories with serious comorbidity and body mass index (BMI) of 37.0 to 37.9 in adult ([facility]) Dyslipidemia ([facility]) Other and unspecified hyperlipidemia Abscess of abdominal wall- Primary Cellulitis and abscess of trunk Polyneuropathy due to type 2 diabetes mellitus ([facility]) documented in this encounter [facility] HealthcareEvaluation note* Diagnosis Annual physical exam- Primary Routine general medical examination at a health care facility Type 2 diabetes mellitus with hyperglycemia, without long-term current use of insulin ([facility]) Type 2 diabetes mellitus with hyperglycemia, without long-term current use of insulin ([facility])- Primary Arthritis, gouty Gouty arthropathy, unspecified Seasonal allergic rhinitis due to pollen DDD (degenerative disc disease), lumbar Degeneration of lumbar or lumbosacral intervertebral disc 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) Primary insomnia Persistent disorder of initiating or maintaining sleep Annual physical exam- Primary Routine general medical examination at a health care facility Encounter for preoperative assessment Type 2 diabetes mellitus with hyperglycemia, without long-term current use of insulin ([facility]) Arthritis, gouty Gouty arthropathy, unspecified Polyneuropathy due to type 2 diabetes mellitus ([facility]) Class 2 severe obesity due to excess calories with serious comorbidity and body mass index (BMI) of 37.0 to 37.9 in adult ([facility]) Dyslipidemia Other and unspecified hyperlipidemia Type 2 diabetes mellitus with hyperglycemia, without long-term current use of insulin ([facility])- Primary Arthritis, gouty Gouty arthropathy, unspecified Seasonal allergic rhinitis due to pollen Primary insomnia Persistent disorder of initiating or maintaining sleep Degeneration of intervertebral disc of lumbar region with discogenic back pain Class 2 severe obesity due to excess calories with serious comorbidity and body mass index (BMI) of 37.0 to 37.9 in adult ([facility]) Type 2 diabetes mellitus with diabetic chronic kidney disease (HCC) Chronic kidney disease, stage 3a ([facility] documented in this encounter [facility] Narrative - Reported* Type Description Date Medical History DM II Medical History HTN Medical History hyperlipidemia Medical History gout Surgical History knee surgery Surgical History tonsillectomy Surgical History vasectomy Surgical History sinus surgery Surgical History back injections Hospitalization History SEE ABOVE SURGICAL HX Prescribe Wellness Other Hospital course Narrative No data available for this section [facility] progress note No data available for this section [facility] Summary Purpose Family History No [...] AUTHOR 03/29/2021 [facility] DATE CREATED AUTHOR AUTHOR'S ORGANIZ ATION 08/06/2022 [facility] DATE CREATED AUTHOR AUTHOR'S ORGANIZ ATION 12/20/2022 [facility] DATE CREATED AUTHOR AUTHOR'S ORGANIZ ATION 07/28/2024 [facility] DATE CREATED AUTHOR AUTHOR'S ORGANIZ ATION 08/01/2024 [facility] DATE CREATED AUTHOR AUTHOR'S ORGANIZ ATION 10/16/2024 [facility] EPIC REASON FOR VISIT (unrecogniz ed section and content) Reason Comments Med Refill Reason Onset Date Comments Med Refill 04/06/2024 Reason Comments Follow-up 6m Reason Comments Follow-up Cyst on stomach/ pop ped Reason Onset Date Comments Med Refill 11/08/2024 Reason Onset Date Comments Med Refill 12/06/2024 Patient Care team informatio n (unrecognized section and content) Tobacco 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 Operator Relationship Specialty Start Date End Date Tulio Ruggiero MD [address] [place] [address] PCP - [employer] 04/13/23 Tulio Ruggiero MD [address] [place] [address] PCP - General Family Medicine 01/12/24 Tobacco Sieve Operator Relationship Specialty Start Date End Date Tulio Ruggiero MD [address] [place] [address] PCP - [employer] 04/13/23 Tulio Ruggiero MD [address] [place] [address] PCP - General Family Medicine 01/12/24 Tobacco Sieve Operator Relationship Specialty Start Date End Date Tulio Ruggiero MD [address] [place] [address] PCP - [employer] 04/13/23 Tulio Ruggiero MD [address] [place] [address] PCP - General [facility] Medicine 01/12/24 Tobacco Sieve Operator Relationship Specialty Start Date End Date Tulio Ruggiero MD [address] [place] [address] PCP - [employer] 04/13/23 Tulio Ruggiero MD [address] [place] [address] PCP - General Family Medicine 01/12/24 Tobacco Sieve Operator Relationship Specialty Start Date End Date Tulio Ruggiero MD [address] [place] [address] PCP - [employer] 04/13/23 Tulio Ruggiero MD [address] [place] [address] PCP - General Family Medicine 01/12/24 Tobacco Sieve Operator Relationship Specialty Start Date End Date Tulio Ruggiero MD [address] [place] [address] PCP - [employer] 04/13/23 Tulio Ruggiero MD [address] [place] [address] PCP - General Family Medicine 01/12/24 Tobacco Sieve Operator Relationship Specialty Start Date End Date Tulio Rgugiero MD [address] [place] [address] PCP - [employer] 04/13/23 Tulio Ruggiero MD [address] [place] [address] PCP - General Family Medicine 01/12/24 Tobacco Sieve Operator Relationship Specialty Start Date End Date Tulio Ruggiero MD [address] [place] [address] PCP - General Family Medicine 01/12/24 Tobacco Sieve Operator Relationship Specialty Start Date End Date Tulio Ruggiero MD [address] [place] [address] PCP - General Family Medicine 01/12/24 Tobacco Sieve Operator Relationship Specialty Start Date End Date Tulio Ruggiero MD [address] [place] [address] PCP - General Family Medicine 01/12/24 Tobacco Sieve Operator Relationship Specialty Start Date End Date Tulio Ruggiero MD [address] [place] [address] PCP - General Family Medicine 01/12/24 Tobacco Sieve Operator Relationship Specialty Start Date End Date Tulio Ruggiero MD [address] [place] [address] PCP - [facility] 01/12/24 Tobacco Sieve Operator Relationship Specialty Start Date End Date Tulio Ruggiero MD [address] [place] [address] PCP - [facility] 01/12/24 Tobacco Sieve Operator Relationship Specialty Start Date End Date Tulio Ruggiero MD [address] [place] [address] PCP - [facility] 01/12/24 FOR RECORDS PERTAINING TO [...] BE BASED ON THE PRIMARY CLINICAL RECORDS. [facility] [employer] [facility]. provides no warranty or guarantee of the accuracy or completeness of information in this document.
[2025-01-13 09:57] LABS: Microalbum Creatinine Ratio Ur 19.6 mg/g (0.0-29.9)
== END 2025-01-13 08:47 | disposition home or self-care (01) ==
LOC: LAB 08:48
PROVIDERS: PCP Family Medicine; Visit Provider Family Medicine
DX: E11.65 Type 2 diabetes mellitus with hyperglycemia (principal)
CPT/HCPCS: 36415; 82043; 82570; 83036

== ENCOUNTER 2025-01-26 08:13 | Outpatient (OUT) | payer BC, SELFPAY ==
--- OUTSIDE RECORDS SUMMARY | 2023-10-08 05:00 | XMS_ITS ---
Author Organization [facility] [place] Address [address] [place] [address] Care Team Providers Care Train Operations Supervisor Name Role Phone None, Unknown or Primary Care Provider James Bae Unavailable [phone] Allergies Allergen (clinical drug ingredient) Drug/Non Drug Allergy documented on EMR Reaction Allergy Type Onset Date Status oxycodone Oxycodone Unknown Drug Allergy Active Results Component Value Reference Range Notes XR Foot LT (3 views) * Reviewed date:10/23/2023 03:01:58 PM Interpretation: Performing Lab: Notes/Report: REASON FOR VISIT 3 month f/u Medications Medication SIG (Take, Route, Frequency, Duration) Notes Start Date End Date Status metFORMIN HCl ER 500 MG Oral for 90 Days Active Lisinopril 5 MG TAKE 1 TABLET BY JERAMIE TH EVERY DAY Oral for 90 Days Activ e Tadalafil 10 MG TAKE 1-2 TABS 60 MIN PRIOR TO SEXUAL ACTIVITY NEEDED FOR ERECTILE DYSFUNCTION.MAX 2 TABS IN 24HRS Oral for 30 Days Active Ozempic (1 MG/DOSE) 4 MG/3ML INJECT 1MG SUBCUTANEOUSLY ONCE WEEKLY Subcutaneous for 84 Days Active Testosterone Cypionate 200 MG/ML INJECT 0.5 ML INTRAMUSCULARLY EVERY 2 WEEKS Intramuscular for 84 Days Active Colchicine 0.6 MG TAKE 1 TABLET BY JERAMIE TH THREE TIMES A DAY NEEDED FOR GOUT Oral for 20 Days Active Diclofenac Sodium 50 MG Oral for 30 Days Active diazePAM 10 MG TAKE 1 TABLET BY JERAMIE TH 1 HOUR PRIOR TO PROCEDURE Oral for 1 Days Active Gabapentin 300 MG TAKE 1 CAPSULE BY MO UTH THREE TIMES A DAY Oral for 90 Days Active Febuxostat 40 MG TAKE 1 TABLET BY JERAMIE TH EVERY DAY Oral for 90 Days Activ e traMADol HCl 50 MG TAKE 1 TABLET BY JERAMIE TH THREE TIMES A DAY NEEDED Oral for 30 Days Active tiZANidine HCl 4 MG TAKE 2 TABLETS BY MO UTH AT BEDTIME Oral for 90 Days Active Atorvastatin Calcium 20 MG TAKE 1 TABLET BY MOUTH EVERYDAY AT BEDTIME Oral for 90 Days Active Social History Tobacco Use: Social History Observation Description Date Details (start date - stop date) Never Smoker NA - NA Tobacco Use/Smoking Question Answer Notes Patient is a nonsmoker Vital Signs Weight 306 lbs 10/08/2023 Height 73 in 10/08/2023 Temperature 98 degrees Fahrenheit 10/08/2023 Heart Rate 80 /min 10/08/2023 BMI 40.37 kg/m2 10/08/2023 Encounters Encounter Location Date Provider Diagnosis [facility] (PODIATRY) [address] [place] [address] [place] [address] 10/08/2023 James Raya Hallux rigidus, left foot M20.22 ; Pseudarthrosis 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 All findings discussed with patient and all questions answered to patient's satisfaction.Amanda cole is today for follow-up 1 year s/p left first MTP arthrodesis with pseudoarthrosis and broken first MTP plate.Since his previous visit, he states he continues to experience no pain whatsoever and skin remains healed with no signs of callus or ulceration.Clinic al exam and x-ray findings discussed with patient.This point discussed with the patient that he is clinically not having any symptoms that no urgency to remove the hardware, however we will need to monitor the arthrodesis site for any change in this as well as his symptoms and if any of the screws or plate become prominent or he begins experiencing any pain then will consider hardware removal and possible first MTP revision if this becomes the case.He expressed understanding of this and will continue with the activity as tolerated and continue with long-term monitoring serial x-rays. He will follow-up in 3 months with repeat left foot weightbearing x-rays. He is to call us in the meantime with any questions or concerns. 10/08/2023 Hallux valgus (acquired), left foot (ICD-10 - M20.12) 10/08/2023 Type 2 diabetes mellitus with diabetic polyneuropathy (ICD-10 - E11.42) Plan Of Treatment Treatment Notes Assessment Notes Pseudarthrosis after fusion or arthrodes is Patient examined and evaluated. All findings discussed with patient and all questions answered to patient's satisfaction.Patient is today for follow-up 1 year s/p left first MTP arthrodesis with pseudoarthrosis and broken first MTP plate.Since his previous visit, he states he continues to experience no pain whatsoever and skin remains healed with no signs of callus or ulceration.Clinical exam and x-ray findings discussed with patient.This point discussed with the patient that he is clinically not having any symptoms that no urgency to remove the hardware, however we will need to monitor the arthrodesis site for any change in this as well as his symptoms and if any of the screws or plate become prominent or he begins experiencing any pain then will consider hardware removal and possible first MTP revision if this becomes the case.He expressed understanding of this and will continue with the activity as tolerated and continue with long-term monitoring serial x-rays. He will follow-up in 3 months with repeat left foot weightbearing x-rays. He is to call us in the meantime with any questions or concerns. Progress Notes * Warner LOCKE CDOB: [birth year] (68 yo M)Acc No.[id number]:10/08/2023 Follow Up Patient: Warner CLEMENTS Leni Provider: Supriya Raya DPM, MS :1955 A ge:68 Y S ex:Male Date:10/08/2023 Address:[address] [place] [address] Juan Pablo LUGO [id number] Check In:08:45 AM BRADCheck O ut:09:17 AM EST Subjective: * Chief Complaints: * 3 month f/u * HPI: G eneral: Patient returns to office today with no changes. Patient denies any pain. No new symptoms to report. Medications/health history unchanged. * ROS: G eneral/Constitutional: Chills d enies. F ever d enies. W eight gain�denies. W eight loss d enies. S kin: Skin Ulcers d enies. S kin lesion(s) d enies. � C ardiovascular: Difficulty breathing on exertion d enies. L eg cramps�denies. E aurora d enies. C hest pain d enies. R espiratory: Difficulty breathing d enies. D yspnea d enies.�Cough d enies. G astrointestinal: Diarrhea d enies. N ausea d enies. V omiting�denies. M usculoskeletal: Bone/Joint Symptoms d enies. C care home Pain d enies.�Leg cramps d enies. N eurologic: Numbness d enies. T ingling d enies . G ait abnormality d enies. � H ematology: Anemia D enies. E asy bruising d enies. � A ll Other Systems: Review of Systems (ROS) S ee HPI for details,All others negative except those mentioned in HPI. * Active Problem List E11.621 Type 2 diabetes sol itus with foot ulcer Modified On:11/25/2022U Status:confirmed L97.521 Chronic foot ulcer, limited to breakdown of skin, left Modified On:10/08/2023U Status:confirmed T81.89XA Delayed surgical wou nd healing Modified On:11/21/2022U Status:confirmed M20.12 Hallux valgus (acqui red), left foot Modified On:10/08/2023U Status:confirmed M20.22 Acquired hallux rigi dus of left foot Modified On:11/25/2022U Status:confirmed E11.42 Diabetes mellitus wi th polyneuropathy Modified On:11/25/2022U Status:confirmed M20.22 Hallux rigidus, left foot Modified On:10/08/2023U Status:confirmed E11.42 Type 2 diabetes sol itus with diabetic polyneuropathy Modified On:10/08/2023U Status:confirmed T84.84XA Pain due to internal orthopedic prosthetic devices, implants and grafts, initial encounter Modified On:12/26/2023W/U Status:confirmed Z98.1 Arthrodesis status Modified On:07/08/2023W/U Status:confirmed M96.0 Pseudarthrosis after fusion or arthrodesis Modified On:07/09/2023/U Status:confirmed * Medical History: * Surgical History: l eft 1st MPJ fusion, hallux interphalangeal joint arthroplasty 3back injections * Hospitalization/Major Diagno stic Procedure: D enies Past Hospitalization * Family History: N o Family History documented.. * Social History: T obacco Use: T obacco Use/Smoking P atient is a n onsmoker * Medications: T akingAtorvastatin Calcium 20 MG Tablet TAKE 1 TABLET BY MOUTH EVERYDAY AT BEDTIME Oral Colchicine 0.6 MG Tablet TAKE 1 TABLET BY MOUTH THREE TIMES A DAY NEEDED FOR GOUT Oral diazePAM 10 MG Tablet TAKE 1 TABLET BY MOUTH 1 HOUR PRIOR TO PROCEDURE Oral Diclofenac Sodium 50 MG Tablet Delayed Release Oral Febuxostat 40 MG Tablet TAKE 1 TABLET BY MOUTH EVERY DAY Oral Gabapentin 300 MG Capsule TAKE 1 CAPSULE BY MOUTH THREE TIMES A DAY Oral Lisinopril 5 MG Tablet TAKE 1 TABLET BY MOUTH EVERY DAY Oral metFORMIN HCl ER 500 MG Tablet Extended Release 24 Hour Oral Ozempic (1 MG/DOSE)(Semaglutide (1 MG/DOSE)) 4 MG/3ML Solution Pen-injector INJECT 1MG SUBCUTANEOUSLY ONCE WEEKLY Subcutaneous Tadalafil 10 MG Tablet TAKE 1-2 TABS 60 MIN PRIOR TO SEXUAL ACTIVITY NEEDED FOR ERECTILE DYSFUNCTION.MAX 2 TABS IN 24HRS Oral Testosterone Cypionate 200 MG/ML Solution INJECT 0.5 ML INTRAMUSCULARLY EVERY 2 WEEKS Intramuscular tiZANidine HCl 4 MG Tablet TAKE 2 TABLETS BY MOUTH AT BEDTIME Oral traMADol HCl 50 MG Tablet TAKE 1 TABLET BY MOUTH THREE TIMES A DAY NEEDED Oral Medication List reviewed and reconciled with the patientTaking Atorvastatin Calcium 20 MG Tablet TAKE 1 TABLET BY MOUTH EVERYDAY AT BEDTIME Oral Taking Colchicine 0.6 MG Tablet TAKE 1 TABLET BY MOUTH THREE TIMES A DAY NEEDED FOR GOUT Oral Taking diazePAM 10 MG Tablet TAKE 1 TABLET BY MOUTH 1 HOUR PRIOR TO PROCEDURE Oral Taking Diclofenac Sodium 50 MG Tablet Delayed Release Oral Taking Febuxostat 40 MG Tablet TAKE 1 TABLET BY MOUTH EVERY DAY Oral Taking Gabapentin 300 MG Capsule TAKE 1 CAPSULE BY MOUTH THREE TIMES A DAY Oral Taking Lisinopril 5 MG Tablet TAKE 1 TABLET BY MOUTH EVERY DAY Oral Taking metFORMIN HCl ER 500 MG Tablet Extended Release 24 Hour Oral Taking Ozempic (1 MG/DOSE)(Semaglutide (1 MG/DOSE)) 4 MG/3ML Solution Pen- injector INJECT 1MG SUBCUTANEOUSLY ONCE WEEKLY Subcutaneous Taking Tadalafil 10 MG Tablet TAKE 1-2 TABS 60 MIN PRIOR TO SEXUAL ACTIVITY NEEDED FOR ERECTILE DYSFUNCTION.MAX 2 TABS IN 24HRS Oral Taking Testosterone Cypionate 200 MG/ML Solution INJECT 0.5 ML INTRAMUSCULARLY EVERY 2 WEEKS Intramuscular Taking tiZANidine HCl 4 MG Tablet TAKE 2 TABLETS BY MOUTH AT BEDTIME Oral Taking traMADol HCl 50 MG Tablet TAKE 1 TABLET BY MOUTH THREE TIMES A DAY NEEDED Oral Medication List reviewed and reconciled with the patient * Allergies: O xycodoneno[Allergies Verified] Objective: * Vitals: W t:306lbs, Ht: 73 in, Temp:98F, HR:80/min, BMI:40.37Index, Pain scale:01-10, Ht- cm: 185.42 cm, Wt-k.8 kg. * Examination: P odiatry Examination: SKIN: s kin intact, n o sign of infection. MUSCULOSKELETAL: N o POP. there is approximately 10-15 degrees of range of motion in the sagittal plane at the 1st metatarsal phalangeal joint. Alignment however is largely unchanged. NEUROLOGICAL: l ight touch sensation intact, n egative tinel's sign. VASCULAR: P edal pulses palpable, C apillaryrefill is brisk to toe, mild swelling localized to the left great toe. X -ray: 3 views of the left foot obtained reviewed in office today. Demonstrates no significant changes compared to previous, mild surrounding lucency across the most proximal screw, however there is no signs of backing out And there is no overall change in alignment. Assessment: * Assessment: 1. P seudarthrosis after fusion or arthrodesis - M96.0 (Primary) 2 . H allux rigidus, left foot - M20.22 3 . H allux valgus (acquired), left foot - M20.12 4 . T ype 2 diabetes mellitus with diabetic polyneuropathy - E11.42 Plan: * Treatment: 2. O thers I maging: XR Foot LT (3 views) * (Performed Date - 10/08/2023) * Procedure Codes: * * Sign off status: Completed Visit Status: C HK (Check Out) true * Provider: Supriya Raya DPM, MS Date: 0 10/08/2023 Generated for José Manuel hawkins/Emelina/Melissaitting on: 0 01/26/2025 08:15 AM EDT History and Physical Notes * Examination Category Sub-Category Detail Notes Category Not es Podiatry Examination SKIN: skin intact, no sign of infection X-ray: 3 views of the left foot obtained reviewed in office today. Demonstrates no significant changes compared to previous, mild surrounding lucency across the most proximal screw, however there is no signs of backing out And there is no overall change in alignment. MUSCULOSKELETAL: No POP. there is anatoly roximately 10-15 degrees of range of motion in the sagittal plane at the 1st metatarsal phalangeal joint. Alignment however is largely unchanged NEUROLOGICAL: light touch sensatio n intact, negative tinel's sign VASCULAR: Pedal pulses palpable, Capillary refill is brisk to toe, mild swelling localized to the left great toe
--- OUTSIDE RECORDS SUMMARY | 2024-02-11 06:30 | XMS_ITS ---
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 Name Role Phone None, Unknown or Primary Care Provider James Bae Unavailable [phone] Allergies Allergen (clinical drug ingredient) Drug/Non Drug Allergy documented on EMR Reaction Allergy Type Onset Date Status oxycodone Oxycodone Unknown Drug Allergy Active REASON FOR VISIT 3 month f/u Medications Medication SIG (Take, Route, Frequency, Duration) Notes Start Date End Date Status tiZANidine HCl 4 MG TAKE 2 TABLETS BY MO UT AT BEDTIME Oral for 90 Days Active traMADol HCl 50 MG TAKE 1 TABLET BY JERAMIE TH THREE TIMES A DAY NEEDED Oral for 30 Days Active diazePAM 10 MG TAKE 1 TABLET BY JERAMIE TH 1 HOUR PRIOR TO PROCEDURE Oral for 1 Days Active Colchicine 0.6 MG TAKE 1 TABLET BY JERAMIE TH THREE TIMES A DAY NEEDED FOR GOUT Oral for 20 Days Active Atorvastatin Calcium 20 MG TAKE 1 TABLET BY MOUTH EVERYDAY AT BEDTIME Oral for 90 Days Active Tadalafil 10 MG TAKE 1-2 TABS 60 MIN PRIOR TO SEXUAL ACTIVITY NEEDED FOR ERECTILE DYSFUNCTION.MAX 2 TABS IN 24HRS Oral for 30 Days Active Testosterone Cypionate 200 MG/ML INJECT 0.5 ML INTRAMUSCULARLY EVERY 2 WEEKS Intramuscular for 84 Days Active Ozempic (1 MG/DOSE) 4 MG/3ML INJECT 1MG SUBCUTANEOUSLY ONCE WEEKLY Subcutaneous for 84 Days Active metFORMIN HCl ER 500 MG Oral for 90 Days Active Lisinopril 5 MG TAKE 1 TABLET BY JERAMIE TH EVERY DAY Oral for 90 Days Activ e Diclofenac Sodium 50 MG Oral for 30 Days Active Febuxostat 40 MG TAKE 1 TABLET BY JERAMIE TH EVERY DAY Oral for 90 Days Activ e Gabapentin 300 MG TAKE 1 CAPSULE BY KENDRICK SHANKS THREE TIMES A DAY Oral for 90 Days Active Social History Tobacco Use: Social History Observation Description Date Details (start date - stop date) Never Smoker NA - NA Tobacco Use/Smoking Question Answer Notes Patient is a nonsmoker Vital Signs Weight 306 lbs 02/11/2024 Height 73 in 02/11/2024 Temperature 97.4 degrees Fahrenheit 02/11/20 24 Heart Rate 82 /min 02/11/2024 BMI 40.37 kg/m2 02/11/2024 Encounters Encounter Location Date Provider Diagnosis [facility] (PODIAT[facility]) [address] [place] [address] [place] [id number] 02/11/2024 James Raya Pseudarthrosis after fusion or arthrodesis M96.0 ; Hallux valgus (acquired), left foot M20.12 ; Left foot pain M79.672 and Type 2 diabetes mellitus with foot ulcer E11.621 Assessments Encounter Date Diagnosis (ICD Code) Assessment Notes Treatment Notes Treatment Clinical Notes Section Notes 02/11/2024 Pseudarthrosis after fusion or arthrodesis (ICD-10 - M96.0) Patient seen and evaluated. Patient education provided and they reviewed x-rays with the patient. I explained that the patient's hardware has broken but there is no tenting of skin or at risk for skin ulceration on his left foot currently. He was educated on if these occur he is to call the office immediately. Fortunately patient has no pain and I did discuss potential need for removal of his hardware with or without revision but again given he has no pain or symptoms patient would like to delay this for as long as possible. I recommended routine follow-up every 3 to 6 months with weightbearing foot x-rays 02/11/2024 Hallux valgus (acquired), left foot (ICD-10 - M20.12) 02/11/2024 Left foot pain (ICD-10 - M79.672) 02/11/2024 Type 2 diabetes mellitus with foot ulcer (ICD-10 - E11.621) Patient did develop a blister/break in the skin on his plantar right foot which is now healed. Some loose hyperkeratotic skin was easily removed with a 15 blade noting healthy skin underneath. He is to closely monitor his feet looking at the bottoms at least twice daily. Continue diabetic shoes and avoid going barefoot Plan Of Treatment Treatment Notes Assessment Notes Pseudarthrosis after fusion or arthrodes is Patient seen and evaluated. Patient education provided and they reviewed x-rays with the patient. I explained that the patient's hardware has broken but there is no tenting of skin or at risk for skin ulceration on his left foot currently. He was educated on if these occur he is to call the office immediately. Fortunately patient has no pain and I did discuss potential need for removal of his hardware with or without revision but again given he has no pain or symptoms patient would like to delay this for as long as possible. I recommended routine follow-up every 3 to 6 months with weightbearing foot x-rays Type 2 diabetes mellitus with foot ulcer Patient did develop a blister/break in the skin on his plantar right foot which is now healed. Some loose hyperkeratotic skin was easily removed with a 15 blade noting healthy skin underneath. He is to closely monitor his feet looking at the bottoms at least twice daily. Continue diabetic shoes and avoid going barefoot Pending Test Test Name Order Date XR Foot LT (3 views) * 02/11/2024 Progress Notes * Warner LOCKE CDOB: [birth year] (68 yo M)Acc No.[id number]:02/11/2024 Follow Up Patient: Warner CLEMENTS Provider: Supriya Raya DPM, MS :1955 A ge:68 Y S ex:Male Date:02/11/2024 Address:[address] [place], [place] [id number] Pcp:Unknown or None Check In:10:20 AM ESTCheck O ut:11:13 AM EST Subjective: * Chief Complaints: * 3 month f/u * HPI: G eneral: Patient returns to office today with no changes. Patient denies any pain. No new symptoms to report to left foot. Medications/health history unchanged. Patients states she would like to have his right foot looked at totday. Due to concerns over his neuropathy. His found a small wound/cut on the bottom of his foot last week while he was recieving a pedicure. She is concerned because he did not feel the wound/ cut on the bottom of his foot. * Active Problem List E11.621 Type 2 [...] devices, implants and grafts, initial encounter Modified On:07/08/2023 Status:confirmed Z98.1 Arthrodesis status Modified On:07/08/2023 Status:confirmed M96.0 Pseudarthrosis after fusion or arthrodesis Modified On:07/09/2023 Status:confirmed * Medical History: * Surgical History: l eft 1st MPJ fusion, hallux interphalangeal joint arthroplasty 3back injections * Hospitalization/Major Diagno stic Procedure: N o Hospitalization History. * Family History: N o Family History [...] reconciled with the patient * Allergies: O hermila[Allergies Verified] Objective: * Vitals: W t:306lbs, Ht: 73 in, Temp:97.4F, HR:82/min, BMI:40.37Index, Pain scale:01-10, Ht-cm: 185.42 cm, Wt-k.8 kg. * Examination: P odiatry Examination: SKIN: s kin intact with a healed blister on the plantar medial forefoot. No sign of infection. MUSCULOSKELETAL: N o pain on palpation. There is raya range of motion of the first MPJ but not painful. Residual valgus deformity of the left great toe. NEUROLOGICAL: l ight touch sensation intact, n egative tinel's sign. VASCULAR: P edal pulses palpable, C apillaryrefill is brisk to toe, minimal swelling bilateral lower legs and feet which is equal and symmetric. X -rays: x-rays were obtained & reviewed in my office. There is broken hardware spanning the first metatarsal phalangeal joint. The interfragmentary screw has loosened but has not backed out. The plate does appear to be prominent on the lateral projection. Assessment: * Assessment: 1. P seudarthrosis after fusion or arthrodesis - M96.0 (Primary) 2 . H allux valgus (acquired), left foot - M20.12 3 . L eft foot pain - M79.672 4 . T ype 2 diabetes mellitus with foot ulcer - E11.621 Plan: * Treatment: 2. L eft foot pain I maging: XR Foot LT (3 views) * 3. T ype 2 diabetes mellitus with foot ulcer Notes: Patient did develop a blister/break in the skin on his plantar right foot which is now healed. Some loose hyperkeratotic skin was easily removed with a 15 blade noting healthy skin underneath. He is to closely monitor his feet looking at the bottoms at least twice daily. Continue diabetic shoes and avoid going barefoot * Procedure Codes: * * Sign off status: Completed Visit Status: C HK (Check Out) true * Provider: Supriya Raya DPM, MS Date: 02/11/2024 Generated for José Manuel hawkins/Emelina/Melissaitting on: 01/26/2025 08:15 AM EDT History and Physical Notes * Examination Category Sub-Category Detail Notes Category Not es Podiatry Examination SKIN: skin intact with a healed bl ister on the plantar medial forefoot. No sign of infection X-rays: x-rays were obtained & reviewed in my office. There is broken hardware spanning the first metatarsal phalangeal joint. The interfragmentary screw has loosened but has not backed out. The plate does appear to be prominent on the lateral projection MUSCULOSKELETAL: No pain on palpation . There is raya range of motion of the first MPJ but not painful. Residual valgus deformity of the left great toe NEUROLOGICAL: light touch sensatio n intact, negative tinel's sign VASCULAR: Pedal pulses palpable, Capillary refill is brisk to toe, minimal swelling bilateral lower legs and feet which is equal and symmetric
--- OUTSIDE RECORDS SUMMARY | 2024-07-27 05:00 | XMS_ITS ---
Author Organization [facility] in [place] Address [address] [place] [address] Care Team Providers Care Market Superintendent Name Role Phone None, Unknown or Primary Care Provider Unavailab James Gutierrez [phone] REASON FOR VISIT -6 Month Follow Up- Encounters Encounter Location Date Provider Diagnosis [facility] (PODIATRY) [address] [place] [address] [place] [address] 07/27/2024 James Raya Left foot pain M79.672 Assessments Encounter Date Diagnosis (ICD Code) Assessment Notes Treatment Notes Treatment Clinical Notes Section Notes 07/27/2024 Left foot pain (ICD-10 - M79.672) Plan Of Treatment Pending Test Test Name Order Date XR Foot LT (3 views) * 07/27/2024 Progress Notes * Warner LOCKE CDOB: [birth year] (69 yo M)Acc No.[id number]:07/27/2024 UNLOCKED PROGRESS NOTE Follow Up Patient: Warner CLEMENTS Leni Provider: Supriya Raya DPM, MS :1955 A ge:68 Y S ex:Male Date:07/27/2024 Address:[address] [place] [address] Juan Pablo LUGO RIANACHRISTINE [id number] Pcp:Unknown or None Subjective: * Chief Complaints: * 1 . -6 Month Follow Up-. * Medical History: Objective: * Vitals: Assessment: * Assessment: 1. L eft foot pain - M79.672 Plan: * Treatment: * * Electronic signature of Woody Raya DPM on 01/26/2025 at 08:16 AM EDT Sign off status: Pending Visit Status: C ANC (Cancelled) * Provider: Supriya Raya DPM, MS Date: 0 07/27/2024 Generated for José Manuel hawkins/Emelina/Brooks on: 0 01/26/2025 08:16 AM EDT
--- OUTSIDE RECORDS SUMMARY | 2024-11-22 09:10 | XMS_ITS ---
Author Organization [facility] Address [address] [place] [address] Care Team Providers Care Training Coordinator Name Role Phone Tulio Madrid Primary Care Provider Daniele Ruffin Unavailable [phone] REASON FOR VISIT LEFT KNEE RECHECK DOS 02.10 Encounters Encounter Location Date Provider Diagnosis [facility] Office [address] [place] [address] 11/22/2024 Daniele Valencia Aftercare following joint replacement surgery Z47.1 Assessments Encounter Date Diagnosis (ICD Code) Assessment Notes Treatment Notes Treatment Clinical Notes Section Notes 11/22/2024 Aftercare following joint replacement surgery (ICD-10 - Z47.1) Plan Of Treatment Pending Test Test Name Order Date SCC- KNEE 2 VIEW LEFT - 95313 11/22/2024 Next Appt Details Provider Name:Daniele lr, 01/31/2025 01:10:00 PM, [address] , [place], [address], Progress Notes * CARLOS LOCKE CDOB: [birth year] (69 yo M)Acc No.[id number]:11/22/2024 Patient: CARLOS CLEMENTS Leni Provider: Noa Valencia DO :1955 A ge:69 Y S ex:Male Date:11/22/2024 Address:[address] [place] [address] [place], [id number] Pcp:Tulio Madrid Subjective: * Chief Complaints: * 1 . LEFT KNEE RECHECK DOS 02.10. * Medical History: Objective: * Vitals: Assessment: * Assessment: 1. A ftercare following joint replacement surgery - Z47.1 (Primary) Plan: * Treatment: * Procedure Codes: 7 3560 X-ray Knee, 2 view Forms: * Images: * Electronic signature of Margie Valencia , on 01/26/2025 at 08:16 AM EDT Sign off status: Pending * Provider: Noa Valencia DO Date: 0 11/22/2024 Generated for José Manuel hawkins/Emelina/Melissaitting on: 0 01/26/2025 08:16 AM EDT
--- OUTSIDE RECORDS SUMMARY | 2024-12-20 09:20 | XMS_ITS ---
Author Organization [facility] Address [address] [place] [address] Care Team Providers Care Botanical Technical Officer Name Role Phone NoahTulio paniagua Primary Care Provider Daniele Ruffin Unavailable [phone] REASON FOR VISIT LEFT KNEE, Left knee pain Medications Medication SIG (Take, Route, Frequency, Duration) Notes Start Date End Date Status Adult Aspirin Regimen 81 mg 1 tab(s) orally 2 TIMES A DAY for 30 days 08/23/2024 Active Encounters Encounter Location Date Provider Diagnosis [facility] Office [address] [place] [address] [place] [address] 12/20/2024 Daniele Valencia Aftercare following joint replacement surgery Z47.1 and Presence of left artificial knee joint Z96.652 Assessments Encounter Date Diagnosis (ICD Code) Assessment Notes Treatment Notes Treatment Clinical Notes Section Notes 12/20/2024 Aftercare following joint replacement surgery (ICD-10 - Z47.1) Status post left total knee arthroplasty . 12/20/2024 Presence of left artificial knee joint (ICD-10 - Z96.652) Status post left total knee arthroplasty . 12/20/2024 Other Patient doing quite well today in regards to his left total knee arthroplasty. Excellent range of motion. Not having much pain. Continue mobilization. Follow-up in 6 months with repeat x-rays. Status post left total knee arthroplasty . Plan Of Treatment Treatment Notes Assessment Notes Other Patient doing quite well today in regards to his left total knee arthroplasty. Excellent range of motion. Not having much pain. Continue mobilization. Follow-up in 6 months with repeat x-rays. Pending Test Test Name Order Date SCC- KNEE 2 VIEW LEFT - 49734 12/20/2024 Next Appt Details Follow Up: 6 Weeks, Reason: Provider Name:Daniele lr, 01/31/2025 01:10:00 PM, [address] , [place], [address], Progress Notes * CARLOS LOCKE CDOB: [birth year] (69 yo M)Acc No.[id number]:12/20/2024 Patient: CARLOS CLEMENTS Provider: Noa Valencia DO :1955 A ge:69 Y S ex:Male Date:12/20/2024 Address:[address] [place], [place] [address], [id number] Pcp:Tulio Madrid Subjective: * Chief Complaints: * 1 . LEFT KNEE. 2. Left knee pain. * HPI: G eneral Follow Up Information: Patient is a 69-year-old male presents today for postop follow-up for his left total knee arthroplasty. He is 4 months postop today. Overall doing quite well not having any pain. Very happy with his result. Denies any numbness or tingling. * ROS: C onstitutional: Denies C hills. P M and R Intake: Denies F ever. D enies fever, chills, numbness tingling. * Medical History: * Medications: T aking Adult Aspirin Regimen 81 mg delayed release tablet 1 tab(s) orally 2 TIMES A DAY Objective: * Vitals: * Examination: G eneral examination: L eft lower extremity:Skin intact. Incision well-healed. No evidence of infection. Range of motion is 0-1 20. Knee stable varus and valgus stress. His motor and sensory exam are intact without deficit. 2+ DP pulse. X -ray Imaging Studies: R eviewed 2 views of the left knee in our office today demonstrates left total knee arthroplasty components in place without evidence of periprosthetic fracture or loosening of implants. No lytic or blastic lesions present. Assessment: * Assessment: 1. A ftercare following joint replacement surgery - Z47.1 (Primary) 2 . P resence of left artificial knee joint - Z96.652 Status post left total knee arthroplasty. Plan: * Treatment: 2. O thers Notes: Patient doing quite well today in regards to his left total knee arthroplasty. Excellent range of motion. Not having much pain. Continue mobilization. Follow-up in 6 months with repeat x-rays.� * Procedure Codes: 7 3560 X-ray Knee, 2 view, Modifiers: LT * Follow Up: 6 Weeks Forms: * Images: * Electronic signature of Haroonjenae mac Erik , DO on 01/26/2025 at 08:15 AM EDT Sign off status: Pending * Provider: Noa Valencia, DO Date: 0 12/20/2024 Generated for José Manuel hawkins/Emelina/Melissaitting on: 0 01/26/2025 08:15 AM EDT History and Physical Notes * HPI (History of Present Illness) Category Sub-Category Detail Notes Category Not es General Follow Up Information Patient is a 69-year-old male presents today for postop follow-up for his left total knee arthroplasty. He is 4 months postop today. Overall doing quite well not having any pain. Very happy with his result. Denies any numbness or tingling. Examination Category Sub-Category Detail Notes Category Not es General examination Left low er extremity:Skin intact. Incision well-healed. No evidence of infection. Range of motion is 0-1 20. Knee stable varus and valgus stress. His motor and sensory exam are intact without deficit. 2+ DP pulse X-ray Imaging Studies Review ed 2 views of the left knee in our office today demonstrates left total knee arthroplasty components in place without evidence of periprosthetic fracture or loosening of implants. No lytic or blastic lesions present.
--- OUTSIDE RECORDS SUMMARY | 2025-01-12 09:00 | XMS_ITS | Encounter Summary ---
Author Organization [facility] Address [address] [place] [address] Care Team Providers Care Medical Diagnostic Radiographer Name Role Phone Tulio Madrid MD Primary Care Provider [phone] Reason for Visit * Reason Comments Follow-up 6m Encounter Details Date Type Department Care Team (Late st Contact Info) Description 01/12/2025 9:00 AM EDT Office Visit [facility] [address] [place] [address] Tulio Madrid MD [address] [place] [place] [address] Type 2 diabetes mellitus with hyperglycemia, without long-term current use of insulin (HCC) (Primary Dx); Arthritis, gouty; Seasonal allergic rhinitis due to pollen; Primary insomnia; Degeneration of intervertebral disc of lumbar region with discogenic back pain; Class 2 severe obesity due to excess calories with serious comorbidity and body mass index (BMI) of 37.0 to 37.9 in adult ([facility]); Type 2 diabetes mellitus with diabetic chronic kidney disease (HCC); Chronic kidney disease, stage 3a ([facility]) Social History Tobacco Use Types Packs/Day Years Used Date Smoking Tobacco: Never Smokeless Tobacco: Never Sex and Gender Information Value Date Recorded Sex Assigned at Not on file Legal Sex Male 7:24 PM EDT Gender Identity Not on file Sexual Orientation Not on file documented as of this encounter Last Filed Vital Signs Vital Sign Reading Time Taken Comments Blood Pressure 138/84 01/12/2025 8:53 AM EDT Pulse 84 01/12/2025 8:53 AM EDT Temperature 36.2 C (97.1 F) 01/12/2025 8:53 AM EDT Respiratory Rate 20 01/12/2025 8:53 AM EDT Oxygen Saturation 98% 01/12/2025 8:53 AM EDT Inhaled Oxygen Concentration - - Weight 133 kg (293 lb) 01/12/2025 8:53 AM EDT Height 188 cm (6' 2 ) 01/12/2025 8:53 AM EDT Body Mass Index 37.62 01/12/2025 8:53 AM EDT documented in this encounter Progress Notes * Tulio Madrid MD - 01/12/2025 9:44 AM EDTAssociated Problem(s): Type 2 diabetes mellitus with hyperglycemia, without long-term current use of insulin (HCC) Reports BS controlled and due for A1C. Stick to ADA diet and limit carbs. * Tulio Madrid MD - 01/12/2025 9:44 AM EDTAssociated Problem(s): Seasonal allergic rhinitis due to pollen Symptoms controlled with medication and continue. * Tulio Madrid MD - 01/12/2025 9:43 AM EDTAssociated Problem(s): Primary insomnia Sleeping well with medication and continue. * Tulio Madrid MD - 01/12/2025 9:43 AM EDTAssociated Problem(s): DDD (degenerative disc disease), lumbar Pain stable and follow with pain management. * Tulio Madrid MD - 01/12/2025 9:43 AM EDTAssociated Problem(s): Class 2 severe obesity due to excess calories with serious comorbidity and body mass index (BMI) of 37.0 to 37.9 in adult ([facility]) Weight loss indicated. * Tulio Madrid MD - 01/12/2025 9:43 AM EDTAssociated Problem(s): Arthritis, gouty No flares and continue allopurinol. * Tulio Madrid MD - 01/12/2025 9:00 AM EDT Images from the original note were not included. Subjective Patient ID: Warner Caraballo is a 69 y.o. male who presents for Follow-up (6m). Follow up DM, gout, allergies, and back pain. Feels well today. Reports BS controlled around 100. Tries to eat well and stick to ADA diet. Denies signs of elevated BS such as polyuria, polyphagia or polydipsia. Gout controlled with allopurinol. No joint pain or stiffness. No swelling or erythema. Allergies controlled with medication. No congestion or rhinorrhea. No ANDRADE or sinus pressure. Ears not plugged or popping. Back pain stable and follows with pain management. Mild pain in low back and across top hips. Pain occasionally into bilateral gluteal region and down legs. Using medication PRN and helps. Sleeping well with trazodone. Able to fall asleep and stay asleep. Wakes up rested in am and not tired during day. Review of Systems Constitutional: Negative for fatigue. [...] There is no guarding or rebound. Musculoskeletal: Left lower leg: No edema. Neurological: Mental Status: He is alert. Assessment/Plan Problem List Items Addressed This Visit DDD (degenerative disc disease), lumbar Pain stable and follow with pain management. Arthritis, gouty No flares and continue allopurinol. Class 2 severe obesity due to excess calories with serious comorbidity and body mass index (BMI) of37.0 to 37.9 in adult ([facility]) Weight loss indicated. Type 2 diabetes mellitus with hyperglycemia, without long-term current use of insulin (HCC) - Primary Reports BS controlled and due for A1C. Stick to ADA diet and limit carbs. Relevant Orders Microalbumin / creatinine, urine ratio Hemoglobin A1c Seasonal allergic rhinitis due to pollen Symptoms controlled with medication and continue. Primary insomnia Sleeping well with medication and continue. documented in this encounter Plan of Treatment Upcoming Encounters Date Type Department Care Team (Late st Contact Info) Description 08/16/2025 9:00 AM EST Office Visit [facility] [address] [place] [address] Tulio Madrid MD [address] [place] [address] Scheduled Orders Name Type Priority Associated Diagnoses Orde r Schedule Microalbumin / creatinine, urine ratio Lab Routine Type 2 diabetes mellitus with hyperglycemia, without long-term current use of insulin ([facility]) Expected: 01/12/2025 (Approximate), Expires: 01/12/2026 Hemoglobin A1c Lab Routine Type 2 diabetes mellitus with hyperglycemia, without long-term current use of insulin (HCC) Expected: 01/12/2025 (Approximate), Expires: 01/12/2026 documented as of this encounter Visit Diagnoses Diagnosis Type 2 diabetes mellitus with hyperglycemia, without long-term current use of insulin (HCC)- Primary Arthritis, gouty Gouty arthropathy, unspecified Seasonal allergic rhinitis due to pollen Primary insomnia Persistent disorder of initiating or maintaining sleep Degeneration of intervertebral disc of lumbar region with discogenic back pain Class 2 severe obesity due to excess calories with serious comorbidity and body mass index (BMI) of 37.0 to 37.9 in adult ([facility]) Type 2 diabetes mellitus with diabetic chronic kidney disease (HCC) Chronic kidney disease, stage 3a ([facility]) documented in this encounter Care Teams Medical Diagnostic Radiographer Relationship Specialty Start Date End Date Tulio Madrid MD [address] [place] [address] PCP - General Family Medicine 01/12/24 documented as of this encounter
--- OUTSIDE RECORDS SUMMARY | 2025-01-26 08:15 | XMS_ITS | Encounter Summary ---
Author Organization [facility] Address [address] [place] [address] Care Team Providers Care Field Staff Name Role Phone Harinder Ruggiero MD Primary Care Provider [phone] Encounter Details Date Type Department Care Team (Late st Contact Info) Description 07/20/2024 Clinisync Result Encounter [facility] External Department Unsolicited Provider, Generic External Data Social History Tobacco Use Types Packs/Day Years Used Date Smoking Tobacco: Never Smokeless Tobacco: Never Sex and Gender Information Value Date Recorded Sex Assigned at Not on file Legal Sex Male 7:24 PM EDT Gender Identity Not on file Sexual Orientation Not on file documented as of this encounter Plan of Treatment Upcoming Encounters Date Type Department Care Team (Late st Contact Info) Description 08/16/2025 9:00 AM EST Office Visit [facility] [address] [place] [address] Harinder Ruggiero MD [address] [place] [address] documented as of this encounter Procedures Procedure Name Priority Date/Time Associated Diagnosis Comments ALL MISCELLANEOUS TEST Routine 9:59 AM EST MRSA SCREENING CULTURE Routine 9:50 AM EST ECG 12-LEAD 07/20/2024 9:50 AM EST documented in this encounter Results * ALL MISCELLANEOUS TEST (07/20/2024 9:59 AM EST) Pathologist [facility] MISCELLANEOUS TEST COMMENT . [facility] Comment: Test Ordered: [id number] Nicotine and Metabolite, Ur Qn Nicotine <10.0 ng/mL Reference Range: . This test was developed and its performance characteristics determined by [facility]. It has not been cleared or approved by the Food and Drug Administration. Nicotine levels greater than 100.0 are consistent with the use of tobacco or tobacco cessation products. Cotinine <10.0 ng/mL Reference Range: . This test was developed and its performance characteristics determined by [facility]. It has not been cleared or approved by the Food and Drug Administration. Cotinine levels greater than 200.0 are consistent with the use of tobacco or tobacco cessation products. Performed at: [address] [id number] Chief Investment Officer: Giovany Bhatt MD, Phone: [phone] Performed at: [address] [id number] Chief Investment Officer: Ivan Mckay PhD, Phone: [phone] 07/20/2024 9:59 AM EST 07/20/2024 10:02 AM EST Narrative [facility] - 07/23/2024 7:09 AM EST [id number] Nicotine and Metabolite, Quantitative, Urine Generic External Data Provider [facility] F inal Result Performing Organization Address City/State/[facility] Co de Phone Number [facility] * MRSA SCREENING CULTURE (07/20/2024 9:50 AM EST) Pathologist [facility] [id number] MRSA Screening Culture [facility] MRSASCRN1 Negative [facility] [id number] Performed at: [facility] MRSASCRN1 [address] [place] [phone] [facility] [id number] Chief Investment Officer: Ivan Mckay PhD, Phone: [phone] [facility] 07/20/2024 9:50 AM EST 07/20/2024 10:03 AM EST Narrative [facility] - 07/22/2024 12:08 PM EST us Generic External Data Provider LAB BLOOD ORDERAB LES Final Result [facility] * ECG 12-LEAD (07/20/2024 9:50 AM EST) Anatomical Region Laterality Modality Other 07/20/2024 9:50 AM EST Narrative 07/20/2024 8:02 [place] [address] Electrocardiograph Report Signed Patient: WARNER CARABALLO MR#: [id number] : 1955 Acct:[id number] Age/Sex: 68 / M ADM Date: 07/20/24 Loc: [facility] Attending Dr: Daniele Valencia M.D. Ordering Physician: Daniele Valencia M.D. Date of Service: 07/20/24 Procedure(s): ECG 12 lead Accession Number(s): [id number] cc: [facility] Test Date: 2024-07-20 Pat Name: WARNER CARABALLO Department: Room: - Gender: Male Clinical Services Manager: : 1955 Requested By: HARINDER RUGGIERO Order Number: [id number] Reading MD: ABDOULAYE PADILLA Measurements Intervals [place] Rate: 83 P: -3 WI: 155 QRS: -53 QRSD: 141 T: 33 QT: 381 QTc: 449 Interpretive Statements SINUS RHYTHM RIGHT BUNDLE BRANCH BLOCK [120+ ms QRS DURATION, UPRIGHT V1, 40+ ms S IN I/aVL/V4/V5/V6] LEFT ANTERIOR FASCICULAR BLOCK [QRS AXIS <= -45, QR IN I, RS IN II] Electronically Signed On 07-20-2024 20:01:41 EST by ABDOULAYE PADILLA Dictated By: Abdoulaye Padilla D.O. Signed By: 07/20/242001 DD/ 9 TD/TT: Process Consultant: Procedure Note Radiology, Radiologist, - 07/20/2024 [facility] [place] [id number] Electrocardiograph Report Signed Patient: WARNER CARABALLO CMR#: [id number] : 7Acct:[id number] Age/Sex: 68 / MADM Date: 07/20/24 Loc: PST Attending Dr: Daniele Valencia M.D. Ordering Physician: Daniele Valencia M.D. Date of Service: 07/20/24 Procedure(s): ECG 12 lead Accession Number(s): [id number] cc: [facility] Test Date: 2024-07-20 Pat Name: WARNER CARABALLO Department: Room: - Gender: Male Clinical Services Manager: : 1955 Requested By: HARINDER RUGGIERO Order Number: [id number] Reading MD: ABDOULAYE PADILLA Measurements Intervals [place] Rate: 83 P: -3 WI: 155 QRS: -53 QRSD: 141 T: 33 QT: 381 QTc: 449 Interpretive Statements SINUS RHYTHM RIGHT BUNDLE BRANCH BLOCK [120+ ms QRS DURATION, UPRIGHT V1, 40+ ms S IN I/aVL/V4/V5/V6] LEFT ANTERIOR FASCICULAR BLOCK [QRS AXIS <= -45, QR IN I, RS IN II] Electronically Signed On 07-20-2024 20:01:41 EST by ABDOULAYE PADILLA Dictated By: Abdoulaye Padilla D.O. Signed By:07/20/242001 DD/ TD/TT: Process Consultant: us Generic External Data Provider [facility] Final Result documented in this encounter Visit Diagnoses Not on filedocumented in this encounter Care Teams Field Staff Relationship Specialty Start Date End Date Harinder Ruggiero MD [address] [place] [address] PCP - General Family Medicine 01/12/24 documented as of this encounter
--- OUTSIDE RECORDS SUMMARY | 2025-01-26 08:16 | XMS_ITS | Encounter Summary ---
Author Organization [facility] Address [address] [place] [address] Care Team Providers Care Warp Coiler Name Role Phone Tulio Madrid MD Primary Care Provider [phone] Encounter Details Date Type Department Care Team (Late st Contact Info) Description 06/28/2024 Clinisync Result Encounter [facility] External Department Unsolicited [...] 08/16/2025 9:00 AM EST Office Visit [facility] [address] [place] [address] Tulio Madrid MD [address] [place] [address] documented as of this encounter Procedures Procedure Name Priority Date/Time Associated Diagnosis Comments CA ECHO DOPPLER COMPLETE 06/28/2024 5:49 PM EST documented in this encounter Results * CA ECHO DOPPLER COMPLETE (06/28/2024 5:49 PM EST) Anatomical Region Laterality Modality Other 06/28/2024 5:49 PM EST Narrative 06/28/2024 5:50 [place] [address] Cardiology Report Signed Patient: WARNER LOCKE MR#: [id number] : 1955 Acct:[id number] Age/Sex: 68 / M ADM Date: 06/28/24 Loc: CARD Attending Dr: Ken Mercer M.D. Ordering Physician: Ken Mercer M.D. Date of Service: 06/28/24 Procedure(s): CA echo doppler complete Accession Number(s): [id number] cc: Ken Mercer M.D.; Tulio Madrid M.D. Patient Name: WARNER LOCKE MR#: [id number] : 1955 Exam Date: 06/28/2024 Ordering Doctor: DR Ken Mercer M.D. ECHOCARDIOGRAM REPORT PROCEDURE: CA ECHO DOPPLER COMPLETE INDICATIONS: Hypertension COMPARISON: None. DESCRIPTION: COMPLETE ECHOCARDIOGRAM Real-time transthoracic echocardiography with 2D, M-mode, spectral and color flow Doppler performed. QUALITY: Technical quality was good. BSA 2.52 m2 LEFT VENTRICLE: Normal chamber size. Normal left ventricular wall thickness. Global left ventricular systolic function is normal. LV EF: Estimated left ventricular ejection fraction is 55%. DIASTOLIC: Normal diastolic function. ATRIAL SEPTUM: LEFT ATRIUM: Normal chamber size. RIGHT ATRIUM: Normal chamber size. RIGHT VENTRICLE: Normal chamber size. Normal right ventricular systolic function. TRICUSPID VALVE: Normal mobility and thickness. No stenosis with trivial regurgitation. No evidence of pulmonary hypertension. RVSP 25 mmHg MITRAL VALVE: Normal mobility and thickness. No evidence of mitral valve stenosis. There is no mitral annular calcification. Trivial mitral regurgitation. AORTIC VALVE: Normal trileaflet appearance. Mildly calcified aortic valve. Normal leaflet mobility. No evidence of aortic valve stenosis. No aortic regurgitation. AORTIC ROOT: Normal diameter and appearance. Normal size ascending aorta measuring 3.6 cm. PULMONIC VALVE: Normal thickness and mobility. No stenosis. Trivial regurgitation. PERICARDIUM: No evidence of pericardial effusion. IVC: Collapses with inspirations. Normal size. PLEURA: CONCLUSION: 1. Normal left ventricular size and systolic function. LVEF is 55%. 2. Normal right ventricular size and systolic function. 3. No significant valvular dysfunction. 4. Normal right-sided pressures. Adult Echocardiography Procedure Report Left Ventricle LVEDD (3.7 - 5.6 cm): 5.14 cm LVESD (2.2 - 4.0 cm): 3.54 cm LVIVS thickness (0.6 - 1.2 cm): 0.92 cm LVPW thickness (0.5 - 1.0 cm): 1.07 cm e': 0.12 m/s E - e': 4.52 LVOT Max Gradient: 3.24 mm[Hg] LVOT Area (cm2): 0.90 m/s Peak Velocity (LVOT): 0.90 m/s Mean Velocity (LVOT): 0.65 m/s LVOT Diameter 2.24 cm Left Ventricular Ejection Fraction: 55 % Left Atrium LA Volume Index (2D A2C): 31.47 ml/m2 Left Atrium Systolic Dimension: 3.20 cm Mitral Valve MV E to A Ratio: 0.95, 0.89 Mitral Valve A-Wave Peak Velocity: 0.57 m/s Mitral Valve E-Wave Peak Velocity: 0.52 m/s Right Ventricle RV Internal Diastolic Dimension: 3.92 cm Aorta AO Root Diam: 3.77 cm Ascending Ao Diam: 3.62 cm Aortic Valve AoV Area (Peak Jose): 2.84 cm2, 2.84 cm2 AoV Area (VTI): 2.98 cm2, 2.98 cm2 Peak Velocity(Antegrade Flow): 1.25 m/s Peak Gradient(Antegrade Flow): 6.20 mm[Hg] Mean Velocity(Antegrade Flow): 0.87 m/s Mean Gradient(Antegrade Flow): 3.45 mm[Hg] Velocity Time Integral: 23.09 cm Tricuspid Valve Peak Velocity (Regurgitant Flow): 2.26 m/s, 2.35 m/s, 2.25 m/s Pulmonic Valve Mean Gradient: 2.67 mm[Hg], 2.85 mm[Hg] Mean Velocity: 0.79 m/s, 0.79 m/s Peak Velocity: 1.09 m/s Peak Gradient: 3.96 mm[Hg], 5.58 mm[Hg] Right Atrium Right Atrium Systolic Pressure: 56.64 ml, 56.64 ml Dictated by: Amari Mcmanus M.D. on 06/28/2024 at 17:42 Approved by: Amari Mcmanus M.D. on 06/28/2024 at 17:49 Dictated By: AMARI MCMANUS Signed By: 06/28/24 175 DD/ 174 TD/TT: Forensic Audit Expert: Procedure Note Radiology, Radiologist, - 06/28/2024 [place] [address] Cardiology Report Signed Patient: WARNER LOCKE CMR#: [id number] : 1955cct:[id number] Age/Sex: 68 / MADM Date: 06/28/24 Loc: CARD Attending Dr: Ken Mercer M.D. Ordering Physician: Ken Mercer M.D. Date of Service: 06/28/24 Procedure(s): CA echo doppler complete Accession Number(s): [id number] cc: Ken Mercer M.D.; Tulio Madrid M.D. Patient Name: WARNER LOCKE MR#: [id number] : 1955 Exam Date: 06/28/2024 Ordering Doctor: DR Ken Mercer M.D. ECHOCARDIOGRAM REPORT PROCEDURE: CA ECHO DOPPLER COMPLETE INDICATIONS: Hypertension COMPARISON: None. DESCRIPTION: COMPLETE ECHOCARDIOGRAM Real-time transthoracic echocardiography with 2D, M-mode, spectral and color flow Dopplerperformed. QUALITY: Technical quality was good. BSA 2.52 m2 LEFT VENTRICLE: Normal chamber size. Normal left ventricular wall thickness. Global left ventricular systolic function is normal. LV EF: Estimated left ventricular ejection fraction is 55%. DIASTOLIC: Normal diastolic function. ATRIAL SEPTUM: LEFT ATRIUM: Normal chamber size. RIGHT ATRIUM: Normal chamber size. RIGHT VENTRICLE: Normal chamber size. Normal right ventricularsystolic function. TRICUSPID VALVE: Normal mobility and thickness. No stenosis withtrivial regurgitation. No evidence of pulmonary hypertension. RVSP 25 mmHg MITRAL VALVE: Normal mobility and thickness. No evidence of mitralvalve stenosis. There is no mitral annular calcification. Trivial mitral regurgitation. AORTIC VALVE: Normal trileaflet appearance. Mildly calcified aorticvalve. Normal leaflet mobility. No evidence of aortic valve stenosis. No aortic regurgitation. AORTIC ROOT: Normal diameter and appearance. Normal size ascendingaorta measuring 3.6 cm. PULMONIC VALVE: Normal thickness and mobility. No stenosis. Trivial regurgitation. PERICARDIUM: No evidence of pericardial effusion. IVC: Collapses with inspirations. Normal size. PLEURA: CONCLUSION: 1. Normal left ventricular size and systolic function. LVEF is 55%. 2. Normal right ventricular size and systolic function. 3. No significant valvular dysfunction. 4. Normal right-sided pressures. Adult Echocardiography Procedure Report Left Ventricle LVEDD (3.7 - 5.6 cm): 5.14 cm LVESD (2.2 - 4.0 cm): 3.54 cm LVIVS thickness (0.6 - 1.2 cm): 0.92 cm LVPW thickness (0.5 - 1.0 cm): 1.07 cm e': 0.12 m/s E - e': 4.52 LVOT Max Gradient: 3.24 mm[Hg] LVOT Area (cm2): 0.90 m/s Peak Velocity (LVOT): 0.90 m/s Mean Velocity (LVOT): 0.65 m/s LVOT Diameter 2.24 cm Left Ventricular Ejection Fraction: 55 % Left Atrium LA Volume Index (2D A2C): 31.47 ml/m2 Left Atrium Systolic Dimension: 3.20 cm Mitral Valve MV E to A Ratio: 0.95, 0.89 Mitral Valve A-Wave Peak Velocity: 0.57 m/s Mitral Valve E-Wave Peak Velocity: 0.52 m/s Right Ventricle RV Internal Diastolic Dimension: 3.92 cm Aorta AO Root Diam: 3.77 cm Ascending Ao Diam: 3.62 cm Aortic Valve AoV Area (Peak Jose): 2.84 cm2, 2.84 cm2 AoV Area (VTI): 2.98 cm2, 2.98 cm2 Peak Velocity(Antegrade Flow): 1.25 m/s Peak Gradient(Antegrade Flow): 6.20 mm[Hg] Mean Velocity(Antegrade Flow): 0.87 m/s Mean Gradient(Antegrade Flow): 3.45 mm[Hg] Velocity Time Integral: 23.09 cm Tricuspid Valve Peak Velocity (Regurgitant Flow): 2.26 m/s, 2.35 m/s, 2.25 m/s Pulmonic Valve Mean Gradient: 2.67 mm[Hg], 2.85 mm[Hg] Mean Velocity: 0.79 m/s, 0.79 m/s Peak Velocity: 1.09 m/s Peak Gradient: 3.96 mm[Hg], 5.58 mm[Hg] Right Atrium Right Atrium Systolic Pressure: 56.64 ml, 56.64 ml Dictated by: Amari Mcmanus M.D. on 06/28/2024 at 17:42 Approved by: Amari Mcmanus M.D. on 06/28/2024 at 17:49 Dictated By: AMARI MCMANUS Signed By:06/28/24 175 DD/ 174 TD/TT: Forensic Audit Expert: Generic External Data Provider [facility] Final Result documented in this encounter Visit Diagnoses Not on filedocumented in this encounter Care Teams Warp Coiler Relationship Specialty Start Date End Date Tulio Madrid MD [address] [place] [address] PCP - General Family Medicine 01/12/24 documented as of this encounter
--- OUTSIDE RECORDS SUMMARY | 2025-01-26 08:16 | XMS_ITS | Encounter Summary ---
Author Organization [facility] Address [address] [place] [address] Care Team Providers Care Soft Work Wrapper Layer And Examiner Name Role Phone Tulio Madrid MD Primary Care Provider [phone] Encounter Details Date Type Department Care Team [...] 08/16/2025 9:00 AM EST Office Visit [facility] [address] [place] [address] Tulio Madrid MD [address] [place] [address] documented as of this encounter Procedures Procedure Name Priority Date/Time Associated Diagnosis Comments ECG 12-LEAD 07/20/2024 9:49 AM EST documented in this encounter Results * ECG 12-LEAD (07/20/2024 9:49 AM EST) Anatomical Region Laterality Modality Other 07/20/2024 9:49 AM EST Narrative 07/20/2024 8:01 PM EST [facility] [place] [id number] Electrocardiograph Report Signed Patient: WARNER LOCKE MR#: [id number] : 1955 Acct:[id number] Age/Sex: 68 / M ADM Date: 07/20/24 Loc: PST Attending Dr: Daniele Valencia M.D. Ordering Physician: Daniele Valencia M.D. Date of Service: 07/20/24 Procedure(s): ECG 12 lead Accession Number(s): [id number] cc: [facility] Test Date: 2024-07-20 Pat Name: WARNER LOCKE Department: Room: - Gender: Male Yarn Worker: : 1955 Requested By: [id number] Order Number: [id number] Reading MD: ABDOULAYE PADILLA Measurements Intervals Aurora Rate: 73 P: 65 ID: [id number] QRS: -58 QRSD: 140 T: 38 QT: 387 QTc: 429 Interpretive Statements SINUS RHYTHM RIGHT BUNDLE BRANCH BLOCK [120+ ms QRS DURATION, UPRIGHT V1, 40+ ms S IN I/aVL/V4/V5/V6] LEFT ANTERIOR FASCICULAR BLOCK [QRS AXIS <= -45, QR IN I, RS IN II] Electronically Signed On 07-20-2024 20:01:19 EST by ABDOULAYE PADILLA Dictated By: Abdoulaye Padilla D.O. Signed By: 07/20/242000 DD/ 0949 TD/TT: Allergist/Pediatric Pulmonologist: Procedure Note Radiology, Radiologist, MD - 07/20/2024 [facility] [place] [id number] Electrocardiograph Report Signed Patient: WARNER LOCKE CMR#: [id number] : 1955cct:[id number] Age/Sex: 68 / MADM Date: 07/20/24 Loc: PST Attending Dr: Daniele Valencia M.D. Ordering Physician: Daniele Valencia M.D. Date of Service: 07/20/24 Procedure(s): ECG 12 lead Accession Number(s): [id number] cc: [facility] Test Date: 2024-07-20 Pat Name: WARNER LOCKE Department: Room: - Gender: Male Yarn Worker: : 1955 Requested By: [id number] Order Number: [id number] Reading MD: ABDOULAYE PADILLA Measurements Intervals Aurora Rate: 73 P: 65 ID: 169 QRS: -58 QRSD: 140 T: 38 QT: 387 QTc: 429 Interpretive Statements SINUS RHYTHM RIGHT BUNDLE BRANCH BLOCK [120+ ms QRS DURATION, UPRIGHT V1, 40+ ms S IN I/aVL/V4/V5/V6] LEFT ANTERIOR FASCICULAR BLOCK [QRS AXIS <= -45, QR IN I, RS IN II] Electronically Signed On 07-20-2024 20:01:19 EST by ABDOULAYE PADILLA Dictated By: Abdoulaye Padilla D.O. Signed By:07/20/242000 DD/ 8 TD/TT: Allergist/Pediatric Pulmonologist: us Generic External Data Provider [facility] Final Result documented in this encounter Visit Diagnoses Not on filedocumented in this encounter Care Teams Soft Work Wrapper Layer And Examiner Relationship Specialty Start Date End Date Tulio Madrid MD [address] [place] [address] PCP - General Family Medicine 01/12/24 documented as of this encounter
--- OUTSIDE RECORDS SUMMARY | 2025-01-26 08:16 | XMS_ITS | Encounter Summary ---
Author Organization [facility] Address [address] [place] [address] Care Team Providers Care Concrete Pouring Supervisor Name Role Phone Tulio Madrid MD Primary Care Provider [phone] Tulio Madrid MD Unavailable Tulio Madrid MD Primary Care Provider [phone] Encounter Details Date Type Department Care Team (Late Contact Info) Description 07/02/2023 Clinisync Result Encounter [facility] External Department Unsolicited [...] Encounters Date Type Department Care Team (Late Contact Info) Description 08/16/2025 9:00 AM EST Office Visit [facility] [address] [place] [address] Tulio Madrid MD [address] [place] [address] documented as of this encounter Procedures Procedure Name Priority Date/Time Associated Diagnosis Comments XR FOOT LT MIN 3V 07/02/2023 10: 35 AM EST documented in this encounter Results * XR FOOT LT MIN 3V (07/02/2023 10:35 AM EST) Anatomical Region Laterality Modality Other 07/02/2023 10:3 5 AM EST Narrative 07/02/2023 10:38 AM EST [address] [address] XRay Report Signed Patient: WARNER LOCKE MR#: [id number] : 1955 Acct:[id number] Age/Sex: 67 / M ADM Date: 07/02/23 Loc: RAD Attending Dr: Tonio Raya D.P.M. Ordering Physician: Tonio Raya D.P.M. Date of Service: 07/02/23 Procedure(s): XR foot LT min 3V Accession Number(s): [id number] cc: Tonio Raya D.P.M.; Tulio Madrid M.D. [place] [address] Patient Name: WARNER LOCKE MRN: [facility]:[id number] date: 1955 Sex: M Assigned Patient Location: [facility] Current Patient Location: [facility] Accession/Order Number: [id number] Exam Date: 07/02/2023 08:44 Report Date: 07/02/2023 10:35 At the request of: TONIO RAYA Procedure: XR foot LT min 3V EXAM: XR foot LT min 3V HISTORY: LEFT FOOT PAIN COMPARISON: Left foot radiographs 12/24/2022 TECHNIQUE: AP, lateral, oblique radiographs of the foot labeled left FINDINGS: Postsurgical changes of first metatarsal phalangeal joint effusion. There is a fracture of the surgical plate. Osteophytes at the first metatarsophalangeal joint are increased from prior. No definite osseous fusion. No discrete lucency about the hardware. Sequela of previous surgical changes of the first proximal phalanx. Unchanged lateral subluxation of the distal phalanx. Osseous productive changes at the first interphalangeal joint. Possible erosions along the first proximal phalanx. Soft tissue swelling of the first toe. Plantar and Achilles calcaneal enthesophytes. XR/XR foot LT min 3V IMPRESSION: 1. Fracture of the first metatarsophalangeal fusion plate. 2. Soft tissue swelling of the first toe with degenerative cysts versus erosions of the first proximal phalanx, correlate for signs of infection. 3. Increased degenerative changes of the first metatarsophalangeal joint. Electronically authenticated by: VI WONG Date: 07/02/2023 10:35 Dictated By: Tim Guerra M.D. Signed By: 07/02/23 1038 DD/ 1035 TD/TT: Compressor Operator: Procedure Note Radiology, Radiologist, MD - 07/02/2023 [place] [address] XRay Report Signed Patient: WARNER LOCKE CMR#: [id number] : 1955cct:[id number] Age/Sex: 67 / MADM Date: 07/02/23 Loc: RAD Attending Dr: Tonio Raya D.P.M. Ordering Physician: Tonio Raya D.P.M. Date of Service: 07/02/23 Procedure(s): XR foot LT min 3V Accession Number(s): [id number] cc: Tonio Raya D.P.M.; Tulio Madrid M.D. [facility] [place] [id number] Patient Name: WARNER LOCKE MRN: [id number] date: 1955 Sex: M Assigned Patient Location: [facility] Current Patient Location: [facility] Accession/Order Number: [id number] Exam Date: 07/02/2023 08:44 Report Date: 07/02/2023 10:35 At the request of: TONIO RAYA Procedure: XR foot LT min 3V EXAM: XR foot LT min 3V HISTORY: LEFT FOOT PAIN COMPARISON: Left foot radiographs 12/24/2022 TECHNIQUE: AP, lateral, oblique radiographs of the foot labeled left FINDINGS: Postsurgical changes of first metatarsal phalangeal joint effusion. Thereis a fracture of the surgical plate. Osteophytes at the firstmetatarsophalangeal joint are increased from prior. No definite osseous fusion. No discrete lucency about the hardware. Sequela of previous surgical changes of the firstproximal phalanx. Unchanged lateral subluxation of the distal phalanx. Osseous productive changes at the first interphalangeal joint. Possible erosionsalong the first proximal phalanx. Soft tissue swelling of the first toe. Plantarand Achilles calcaneal enthesophytes. XR/XR foot LT min 3V IMPRESSION: 1. Fracture of the first metatarsophalangeal fusion plate. 2. Soft tissue swelling of the first toe with degenerative cysts versus erosions of the first proximal phalanx, correlate for signs of infection. 3. Increased degenerative changes of the first metatarsophalangeal joint. Electronically authenticated by: VI WONG Date: 07/02/2023 10:35 Dictated By: Tim Guerra M.D. Signed By:07/02/23 1038 DD/ 1035 TD/TT: Compressor Operator: Generic External Data Provider [facility] Final Result documented in this encounter Visit Diagnoses Not on filedocumented in this encounter Care Teams Concrete Pouring Supervisor Relationship Specialty Start Date End Date Tulio Madrid MD PCP - General Family Medicine 01/10/23 01/11/24 Tulio Madrid MD [address] [place] [address] PCP - [facility] 04/13/2306/12 Tulio Madrid MD [address] [place] [address] PCP - General Family Medicine 01/12/24 documented as of this encounter
--- OUTSIDE RECORDS SUMMARY | 2025-01-26 08:16 | XMS_ITS | Encounter Summary ---
Author Organization [facility] Address [address] [place] [address] Care Team Providers Care Shoe Coverer Name Role Phone Tulio Madrid MD Primary Care Provider [phone] Encounter Details Date Type Department Care Team (Late st Contact Info) Description 06/23/2024 Clinisync Result Encounter [facility] External Department Unsolicited [...] 08/16/2025 9:00 AM EST Office Visit [facility] [address] [place] [address] Tulio Madrid MD [address] [place] [address] documented as of this encounter Procedures Procedure Name Priority Date/Time Associated Diagnosis Comments XR KNEE 4+ VIEWS BILATERAL 06/23/2024 6:16 AM EST documented in this encounter Results * XR knee 4+ views bilateral (06/23/2024 6:16 AM EST) Anatomical Region Laterality Modality Lower Extremities, Knee Bilateral Radiogra phic Imaging 06/23/2024 6:16 AM EST Narrative 06/23/2024 6:19 [place] [address] XRay Report Signed Patient: WARNER LOCKE MR#: [id number] : 1955 Acct:[id number] Age/Sex: 68 / M ADM Date: 06/21/24 Loc: EC Attending Dr: Daniele Valencia M.D. Ordering Physician: Daniele Valencia M.D. Date of Service: 06/21/24 Procedure(s): XR knee MARIE 4V Accession Number(s): [id number] cc: Daniele Valencia M.D.; Tulio Madrid M.D. [facility] [place] [id number] Patient Name: WARNER LOCKE MRN: [id number] date: 1955 Sex: M Assigned Patient Location: Current Patient Location: Accession/Order Number: [id number] Exam Date: 06/21/2024 13:16 Report Date: 06/23/2024 06:16 At the request of: DANIELE VALENCIA Procedure: XR knee MARIE 4V EXAMINATION: XR knee MARIE 4V HISTORY: BILATERAL KNEE PAIN COMPARISON: XR knee bilateral 03/24/2023 FINDINGS: RIGHT FINDINGS: BONES: Marked narrowing of the medial joint space with ymkv-gg-[id number] articulation. 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 SOFT TISSUES: No visible soft tissue swelling. OTHER: Small joint effusion. LEFT FINDINGS: BONES: Marked narrowing of the medial joint space with mcgc-sm-hulc articulation. Periarticular degenerative osteophytes involving all 3 compartments; large involving the medial and lateral compartments. SOFT TISSUES: No visible soft tissue swelling. OTHER: Small joint effusion. XR/XR knee MARIE 4V IMPRESSION: RIGHT CONCLUSION: Marked degenerative joint disease; stable to minimally progressed. LEFT CONCLUSION: Marked degenerative joint disease; stable to minimally progressed. Electronically authenticated by: AKASH KENNY Date: 06/23/2024 06:16 Dictated By: Akash Kenny M.D. Signed By: 06/23/24618 DD/ 5 TD/TT: Washroom Operator: Procedure Note Radiology, Radiologist, MD - 06/23/2024 [place] [address] XRay Report Signed Patient: WARNER LOCKE CMR#: [id number] : 1955cct:[id number] Age/Sex: 68 / MADM Date: 06/21/24 Loc: EC Attending Dr: Daniele Valencia M.D. Ordering Physician: Daniele Valencia M.D. Date of Service: 06/21/24 Procedure(s): XR knee MARIE 4V Accession Number(s): [id number] cc: Daniele Valencia M.D.; Tulio Madrid M.D. [facility] [place] [address] Patient Name: WARNER LOCKE MRN: [id number] date: 1955 Sex: M Assigned Patient Location: Current Patient Location: Accession/Order Number: [id number] Exam Date: 06/21/2024 13:16 Report Date: 06/23/2024 06:16 At the request of: DANIELE VALENCIA Procedure: XR knee MARIE 4V EXAMINATION: XR knee MARIE 4V HISTORY: BILATERAL KNEE PAIN COMPARISON: XR knee bilateral 03/24/2023 FINDINGS: RIGHT FINDINGS: BONES: Marked narrowing of the medial joint space with fwun-xi-btbd articulation. 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 SOFT TISSUES: No visible soft tissue swelling. OTHER: Small joint effusion. LEFT FINDINGS: BONES: Marked narrowing of the medial joint space with xepa-qy-iomg articulation. Periarticular degenerative osteophytes involving all 3 compartments; large involving the medial and lateral compartments. SOFT TISSUES: No visible soft tissue swelling. OTHER: Small joint effusion. XR/XR knee MARIE 4V IMPRESSION: RIGHT CONCLUSION: Marked degenerative joint disease; stable to minimally progressed. LEFT CONCLUSION: Marked degenerative joint disease; stable to minimally progressed. Electronically authenticated by: AKASH KENNY Date: 06/23/2024 06:16 Dictated By: Akash Kenny M.D. Signed By:06/23/24618 DD/ 5 TD/TT: Washroom Operator: us Generic External Data Provider IMG XR PROCEDURES Final Result documented in this encounter Visit Diagnoses Not on filedocumented in this encounter Care Teams Shoe Coverer Relationship Specialty Start Date End Date Tulio Madrid MD [address] [place] [address] PCP - General Family Medicine 01/12/24 documented as of this encounter
--- OUTSIDE RECORDS SUMMARY | 2025-01-26 08:16 | XMS_ITS | Patient Health Record ---
Author Organization [facility] Address [address] [place] [address] Care Team Providers Care Coordinating Producer Name Role Phone None, Unknown or Primary Care Provider Sriramab James Gutierrez Unavailable [phone] Allergies Allergen (clinical drug ingredient) Drug/Non Drug Allergy documented on EMR Reaction Allergy Type Onset Date Status oxycodone Oxycodone Unknown Drug Allergy Active Results Component Value Reference Range Notes CBC AUTO DIFF Reviewed date:08/24/2024 12:52:49 PM Interpretation: Performing Lab: Notes/Report: The , White Blood Count 13.8 4.0-11.0 10 3/uL Red Blood Count 3.50 4.70-6.10 10 6/uL Hemoglobin 11.5 14.0-18.0 g/dL Hematocrit 34.8 42.0-54.0 % Mean Corpuscular Volume 99.4 80.0-94.0 fL Mean Corpuscular Hemoglobin 32.9 25.9-34.0 pg Mean Corpuscular HGB Conc 33.0 29.9-35.2 g/dL Red Cell Distribution Width 13.7 11.0-15.0 % Platelet Count 222 150-450 10 3/uL Mean Platelet Volume 9.2 9.5-13.5 fL Neutrophils Percent Auto 81.1 43.0-75.0 % Lymphocytes Percent Auto 8.9 20.5-60.0 % Monocytes Percent Auto 9.1 1.7-12.0 % Eosinophils Percent Auto 0.1 0.9-7.0 % Basophils Percent Auto 0.1 0.2-2.0 % Immature Granulocytes Pct Auto 0.7 0.0-0.5 % Neutrophils Absolute Auto 11.2 1.4-6.5 10 3/uL Lymphocytes Absolute Auto 1.2 1.2-3.8 10 3/uL Monocytes Absolute Auto 1.3 0.3-0.8 10 3/uL Eosinophils Absolute Auto 0.0 0.0-0.7 10 3/uL Basophils Absolute Auto 0.0 0.0-0.1 10 3/uL Immature Granulocytes Abs Auto 0.09 0.00-0.03 10 3/uL Performing Lab: see note - [facility] LB PROF CHEM 8 (BAS METB) Reviewed date:08/24/2024 12:52:49 PM Interpretation: Performing Lab: Notes/Report: The , Sodium 143 136-145 mmol/L Potassium 4.7 3.5-5.1 mmol/L Chloride 108 98-107 mmol/L Carbon Dioxide 25.4 21.0-32.0 mmol/L Anion Gap 14.3 Glucose 112 74-106 mg/dL Blood Urea Nitrogen 28.0 7.0-18.0 mg/dL Creatinine 1.62 0.70-1.30 mg/dL Estimated GFR ( Kelsi 52 >=60 mL/mi n/1.73m 2 Estimated GFR (Non- Madonna 43 >=60 mL/mi n/1.73m 2 BUN Creatinine Ratio 17.3 Calcium 7.7 8.5-10.1 mg/dL Performing Lab: see note ML - [facility] Reason For Referral No Information Medications Medication SIG (Take, Route, Frequency, Duration) Notes Start Date End Date Status Lisinopril 5 MG TAKE 1 TABLET BY JERAMIE TH EVERY DAY Oral for 90 Days Activ e tiZANidine HCl 4 MG TAKE 2 TABLETS BY MO UT AT BEDTIME Oral for 90 Days Active traMADol HCl 50 MG TAKE 1 TABLET BY JERAMIE TH THREE TIMES A DAY NEEDED Oral for 30 Days Active Diclofenac Sodium 50 MG Oral for 30 Days Active Tadalafil 10 MG TAKE 1-2 TABS 60 MIN PRIOR TO SEXUAL ACTIVITY NEEDED FOR ERECTILE DYSFUNCTION.MAX 2 TABS IN 24HRS Oral for 30 Days Active Febuxostat 40 MG TAKE 1 TABLET BY JERAMIE TH EVERY DAY Oral for 90 Days Activ e Testosterone Cypionate 200 MG/ML INJECT 0.5 ML INTRAMUSCULARLY EVERY 2 WEEKS Intramuscular for 84 Days Active diazePAM 10 MG TAKE 1 TABLET BY JERAMIE TH 1 HOUR PRIOR TO PROCEDURE Oral for 1 Days Active Ozempic (1 MG/DOSE) 4 MG/3ML INJECT 1MG SUBCUTANEOUSLY ONCE WEEKLY Subcutaneous for 84 Days Active Colchicine 0.6 MG TAKE 1 TABLET BY JERAMIE THREE TIMES A DAY NEEDED FOR GOUT Oral for 20 Days Active metFORMIN HCl ER 500 MG Oral for 90 Days Active Atorvastatin Calcium 20 MG TAKE 1 TABLET BY MOUTH EVERYDAY AT BEDTIME Oral for 90 Days Active Gabapentin 300 MG TAKE 1 CAPSU[address] MO [facility] THREE TIMES A DAY Oral for 90 Days Active Social History Tobacco Use: Social History Observation Description Date Details (start date - stop date) Never Smoker NA - NA Tobacco Use/Smoking Question Answer Notes Patient is a nonsmoker Problems Problem Type SNOMED Code ICD Code Onset Dates Problem Status W/U Status Risk Notes Problem 124053687 Type 2 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) Active confirmed Problem Foot ulcer due to type 2 diabetes mellitus (9762816795794) Type 2 diabetes mellitus with foot ulcer (E11.621) Active confirmed Problem Acquired hallux valgus (34174379) Hallux valgus (acquired), left foot (M20.12) Active confirmed Problem 973037223 Hallux rigidus, left foot (M20.22) Active confirmed Problem 925689355 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) Active confirmed Problem 55634347 Pain due to internal orthopedic prosthetic devices, implants and grafts, initial encounter (T84.84XA) Active confirmed Problem 069515237 Arthrodesis status (Z98.1) Active confirmed Problem Acquired hallux rigidus (8694337) Acquired hallux rigidus of left foot (M20.22) Active confirmed Problem Delayed healing of surgical wound (finding) (623816843) Delayed surgical wound healing (T81.89XA) Active confirmed Problem Polyneuropathy due to type 2 diabetes mellitus (967675712) Diabetes mellitus with polyneuropathy (E11.42) Active confirmed Problem Chronic foot ulcer, limited to breakdown of skin, left (L97.521) Active confirmed Vital Signs Heart Rate 82 /min 02/11/2024 Temperature 97.4 degrees Fahrenheit 02/11/2024 Height 73 in 02/11/2024 Weight 306 lbs 02/11/2024 BMI 40.37 kg/m2 02/11/2024 Encounters Encounter Location Date Provider Diagnosis [facility] [address] [place] [address] [place] [address] 02/11/2024 James Raya Pseudarthrosis after fusion or [...] and avoid going barefoot Plan Of Treatment Pending Test Test Name Order Date XR Foot LT (3 views) * 02/11/2024 XR foot LT min 3V 07/02/2023 Insurance Providers Payer Name Payer Address Payer Phone Subscriber Number Group Number Insured Name Patient Relationship to Insured Coverage Start Date Coverage End Date ANTHEM ACCESS PPO PLUS LOCAL PLAN [address] [place] [address] [id number] Kanwal Caraballo Spouse - patient is the spouse of the insured 3 [place] [address] [id number] Part A Only Warner Caraballo Self - patient is the insured Medical (General) History Medical History History ICD Code Diabetes due to underlying condition w ezequiel aburto, unsp E08.40 High cholesterol E78.00 Gout M10.9 Peripheral neuropathy G62.9 Chronic pain G89.29 Hypertension I10 Surgical History Surgery Date(Month/Year) left 1st MPJ fusion, hallux interphalang eal joint arthroplasty 10/21/2022 back injections
--- OUTSIDE RECORDS SUMMARY | 2025-01-26 08:16 | XMS_ITS | Encounter Summary ---
Author Organization [facility] Address [address] [place] [address] Care Team Providers Care Preformer Impregnated Fabrics Name Role Phone Tulio Madrid MD Primary Care Provider [phone] Tulio Madrid MD Unavailable Tulio Madrid MD Primary Care Provider [phone] Reason for Visit * Reason Comments Med Refill Encounter Details Date Type Department Care Team (Late Contact Info) Description 08/29/2023 Refill [facility] [address] [place] [address] Tulio Madrid MD [address] [place] [address] Male hypogonadism Social History Tobacco Use Types Packs/Day Years [...] 08/16/2025 9:00 AM EST Office Visit [facility] [address] [place] [address] Tulio Madrid MD [address] [place] [address] documented as of this encounter Visit Diagnoses Diagnosis Male hypogonadism Other testicular hypofunction documented in this encounter Care Teams Preformer [employer]ated [employer] Relationship Specialty Start Date End Date Tulio Madrid MD PCP - General Family Medicine 01/10/23 01/11/24 Tulio Madrid MD [address] [place] [address] PCP - [facility] 04/13/2306/12 Tulio Madrid MD [address] [place] [address] PCP - General Family Medicine 01/12/24 documented as of this encounter
--- OUTSIDE RECORDS SUMMARY | 2025-01-26 08:16 | XMS_ITS | Encounter Summary ---
Author Organization [facility] Address [address] [place] [address] Care Team Providers Care Bread Oven Operator Name Role Phone Tulio Madrid MD Primary Care Provider [phone] Tulio Madrid MD Unavailable Tulio Madrid MD Primary Care Provider [phone] Encounter Details Date Type Department Care Team (Late Contact Info) Description 07/25/2023 Orders Only [facility] [address] [place] [phone] Tulio Madrid MD [address] [place] [address] Social History Tobacco Use Types Packs/Day Years [...] 9:00 AM EST Office Visit [facility] [address] [place] [address] Tulio Madrid MD [address] [place] [address] documented as of this encounter Visit Diagnoses Not on filedocumented in this encounter Care Teams Bread Oven Operator Relationship Specialty Start Date End Date Tulio Madrid MD PCP - General Family Medicine 01/10/23 01/11/24 Tulio Madrid MD [address] [place] [address] PCP - [facility] 04/13/2306/12 Tulio Madrid MD [address] [place] [address] PCP - General Family Medicine 01/12/24 documented as of this encounter
--- OUTSIDE RECORDS SUMMARY | 2025-01-26 08:16 | XMS_ITS | Clinical Summary ---
Author Organization [facility] Address [id number] [address] [place] [address] Care Team Providers Care Shoe Clerk Name Role Phone Unavailable Primary Care Provider Unavailabl e Social History Tobacco Use Types Packs/Day Years Used Date Smoking Tobacco: Never Assessed Childcare Answer Date Recorded Childcare Unknown 12/22/2018 Employment Answer Date Recorded Employment Unknown 12/22/2018 Purpose - Life Answer Date Recorded Purpose and direction in life Unknown Sex and Gender Information Value Date Recorded Sex Assigned at Not on file Legal Sex Male 9:00 PM EDT Gender Identity Not on file Sexual Orientation Not on file Plan of Treatment Health Maintenance Due Date Last Done Comments Depression Screening 1968 Tobacco Screening 1968 Adult BMI Screening 1974 DTaP,Tdap and Td Vaccines (1 - Tdap) 1975 Zoster (Shingles) Vaccine (1 of 2) 2006 Fall Risk Screening 2021 Influenza Vaccine 03/14/2025 Medical Devices Not on file
--- OUTSIDE RECORDS SUMMARY | 2025-01-26 08:16 | XMS_ITS | Patient Health Record ---
Author Organization [facility] Address [address] [place] [address] Care Team Providers Care Anode Adjuster Name Role Phone Tulio Madrid Primary Care Provider UnavailDaniele Tsai Unavailable [phone] Akash Hall Unavailable [phone] Brook Durán Unavailable [phone] Results Component Value Reference Range Notes Surgery Scheduling Reviewed date:08/31/2024 09:51:53 AM Interpretation: Performing Lab: Notes/Report: Primary Insurance Company: [facility] Surgeon/Assist: ANTHONY/VAHE BARNARD Surgery Location: [facility] Surgery Date & Time: 08/09/2024 @ 9 AM Hosp arrival time day of: 7:00 AM Surgery End Time: 12:00 Procedure: LEFT TOTAL KNEE ARTHROPLASTY Special Equipment: [email or web address] AND [employer] VISIONEER C-Arm: YES Diagnosis: OSTEOARTHRITIS OF LEFT KNEE Admission Type: OP Anesthesia Type/CPNB: GENERAL/BLOCK Bed 23 HR OBS Post-op Appointment Date: 08/23/24 @ 2 PM Latex Allergy NO Lab Location: [facility] Lab Date/Time: 07/20/2024 @ 9 AM [facility] Date/T 07/20 I&C Tech: ISMAEL Oliva History & Physical Appointme nt Date/: 07/26/24 Pre-op labs/Chest Order: CBC WI,CMP,MRSA ,UA WITH C AND S, URINE NICOTINE,CXR,EKG Had or have MRSA/Direct cont act w MRSA pt/HCW NO Had dental problems/Yes-no/type: NO MRI Knee Surg.Navigate or Pl an ONLY Left (Not yet reviewed by provider) Interpretation: Performing Lab: Notes/Report: Patient Name: Carlos Locke HISTORY: Arthritis of the left knee. Preoperative planning. XR Knee 1 or 2 Views Left (N ot yet reviewed by provider) Interpretation: Performing Lab: Notes/Report: Patient Name: Carlos Locke EXAM: Left knee XR Foreign Body Loc Eye Bila teral (Not yet reviewed by provider) Interpretation: Performing Lab: Notes/Report: Patient Name: Carlos Locke Procedure: AP view of the orbits. XR Knee Standing AP Bilatera l (Not yet reviewed by provider) Interpretation: Performing Lab: Notes/Report: Patient Name: Carlos Locke EXAM: XR Knee Standing AP Bilateral XR Knee Standing AP Bilatera l (Not yet reviewed by provider) Interpretation: Performing Lab: Notes/Report: Patient Name: Carlos Locke EXAM: XR Knee Standing AP Bilateral Reason For Referral Reason NO PRIOR AUTH REQUIR ED ANTHEM...NOT SCHED...PLEASE PRECERT LEFT KNEE MRI WITH BOWMAN AND NEPHEW PROTOCOL AT [facility] Diagnosis 1 Primary osteoarthrit is of left knee (M17.12) Diagnosis 2 Pain in left knee (M 25.562) Referral Organization [facility] Referring Provider First Name Daniele Referring Provider Last Name Anthony Referring Provider Speciality Orthopedic Surgery Referred Organization [facility] Radiology Dept . Referred Provider Daniele Valencia Referred Address [address] [place], [place],[address], Referred Provider Specialty Orthopedic S urgery Procedure 1 MRI Joint Lower Ext w/o Dye (07526) General Notes Ismael Mariee 2023 10:22:15 AM >, Bell Avendano 06/23/2024 03:49:25 PM > PENDING WITH [facility]. FORM AND CLINICALS FAXED. FORM IN CHART.Juan Alberto Amber 06/25/2024 08:14:25 AM > NO PRIOR AUTH REQUIRED PER FAX FROM [facility]. REF IN CHART. PER AVAILITYWILFRID IS ACTIVE OF 07/14/2022. FAXED TO [facility].Kodi Tricia 06/28/2024 06:56:53 AM >ORDERS FAXED Referral Priority Routine Reason APPROVED WILFRID... 08/09...PLEASE PRECERT LEFT TOTAL KNEE REPLACEMENT WITH BOWMAN AND NEPHEW AT [facility] Diagnosis 1 Primary osteoarthrit is of left knee (M17.12) Referral Organization [facility] Referring Provider First Name Daniele Referring Provider Last Name Anthony Referring Provider Speciality Orthopedic Surgery Referred Organization [facility] Referred Provider Daniele Valencia Referred Address [address] [place], [place],[address],[place] Referred Provider Specialty Orthopedic S urgery Procedure 1 Arthroplasty Knee To clare Med/Lat Compartments ([id number]) General Notes Ismael Mariee 2024 09:43:18 AM >Juan Alberto Amber 07/23/2024 12:38:24 PM > AUTH IS PENDING WITH [facility]. FORM AND CLINICALS WERE FAXED. FORM IN CHART., Bell Avendano 07/26/2024 02:03:05 PM > AUTH WAS APPROVED PER [facility]. APPROVED DATES ARE FROM 07/23/2024-09/20/2024. AUTH #[id number]. AUTH IN CHART. PER XOCHILTITYWILFRID IS ACTIVE OF 07/14/2022. FAXED TO [facility]. Referral Priority Routine Medications Medication SIG (Take, Route, Frequency, Duration) Notes Start Date End Date Status Adult Aspirin Regimen 81 mg 1 tab(s) orally 2 TIMES A DAY for 30 days 08/23/2024 Active Social History Tobacco Use: Social History Observation Description Date Details (start date - stop date) Never Smoker NA - NA AUDIT-C (Standard) Question Answer Notes Did you have a drink contain ing alcohol in the past year? Yes How often did you have six o r more drinks on one occasion in the past year? Never (0 point) How many drinks did you have on a typical day when you were drinking in the past year? 1 or 2 drinks (0 point) How often did you have a dri nk containing alcohol in the past year? Monthly or less (1 point) Points 1 Interpretation Negative Tobacco Control (Standard) Question Answer Notes Tobacco use: Nonsmoker Problems Problem Type SNOMED Code ICD Code Onset Dates Problem Status W/U Status Risk Notes Problem 332695874 Aftercare following joint replacement surgery (Z47.1) Active confirmed Problem 2437283213 Pain in right kn ee (M25.561) Active confirmed Problem 719364836450176 Primary osteoarthritis of left knee (M17.12) Active confirmed Problem 708696356860002 Pain in left kne e (M25.562) Active confirmed Problem 691718307790 Presence of left artificial knee joint (Z96.652) Active confirmed Problem 668851224 Primary osteoarthritis of knees, bilateral (M17.0) Active confirmed Vital Signs Height 6'1 in 09/06/2024 Weight 289 lbs 09/06/2024 BMI 38.12 09/06/2024 Encounters Encounter Location Date Provider Diagnosis [facility] [address] [place] [address] 12/20/2024 Daniele Valencia Aftercare following joint replacement surgery Z47.1 and Presence of left artificial knee joint Z96.652 [facility] [address] [place] [address] 03/08/2024 [facility] Primary osteoarthritis of knees, bilateral M17.[address] [address] 06/21/2024 Danielejavier Valencia Pain in right knee M25.561 ; Pain in left knee M25.562 and Primary osteoarthritis of left knee M17.12 [facility] [address] [place] [address] 07/26/2024 Daniele Valencia Primary osteoarthritis of left knee M17.12 [facility] [address] [place] [address] 08/23/2024 Daniele Valencia Primary osteoarthritis of left knee M17.12 [facility] [address] [place] [address] 09/06/2024 Daniele Valencia Aftercare following joint replacement surgery Z47.1 and Presence of left artificial knee joint Z96.652 [facility] [address] [place] [address] 10/04/2024 Danielejavier Valencia Aftercare following joint replacement surgery Z47.1 and Presence of left artificial knee joint Z96.652 [facility] [address] [place] [address] 06/08/2024 Akash Hall [facility] [address] [place] [address] 06/08/2024 Daniele Valencia [facility] [address] [place] [address] 08/23/2024 Daniele Valencia Primary osteoarthritis of left knee M17.12 ; Presence of left artificial knee joint Z96.652 and Aftercare following joint replacement surgery Z47.1 [facility] [address] [place] [address] 08/26/2024 Daniele Valencia Aftercare following joint replacement surgery Z47.1 [facility] [address] [place] [address] 09/13/2024 Daniele Valencia Aftercare following joint replacement surgery Z47.1 Assessments Encounter Date Diagnosis (ICD Code) Assessment Notes Treatment Notes Treatment Clinical Notes Section Notes 03/08/2024 Primary osteoarthritis of knees, bilateral (ICD-10 - M17.0) 06/21/2024 Pain in right knee (ICD-10 - M25.561) Left knee osteoarthritis 06/21/2024 Pain in left knee (ICD-10 - M25.562) Left knee osteoarthritis 07/26/2024 Primary osteoarthritis of left knee (ICD-10 - M17.12) Left knee osteoarthritis 08/23/2024 Primary osteoarthritis of left knee (ICD-10 - M17.12) 08/23/2024 Primary osteoarthritis of left knee (ICD-10 - M17.12) 08/23/2024 Presence of left artificial knee joint (ICD-10 - Z96.652) 08/26/2024 Aftercare following joint replacement surgery (ICD-10 - Z47.1) 09/06/2024 Aftercare following joint replacement surgery (ICD-10 - Z47.1) Status post left total knee arthroplasty 09/13/2024 Aftercare following joint replacement surgery (ICD-10 - Z47.1) 10/04/2024 Aftercare following joint replacement surgery (ICD-10 - Z47.1) Status post left total knee arthroplasty 12/20/2024 Aftercare following joint replacement surgery (ICD-10 - Z47.1) Status post left total knee arthroplasty. 12/20/2024 Presence of left artificial knee joint (ICD-10 - Z96.652) Status post left total knee arthroplasty. 10/04/2024 Presence of left artificial knee joint (ICD-10 - Z96.652) Status post left total knee arthroplasty 09/06/2024 Presence of left artificial knee joint (ICD-10 - Z96.652) Status post left total knee arthroplasty 08/23/2024 Aftercare following joint replacement surgery (ICD-10 - Z47.1) 06/21/2024 Primary osteoarthritis of left knee (ICD-10 - M17.12) Left knee osteoarthritis 12/20/2024 Other Patient doing quite well today in regards to his left total knee arthroplasty. Excellent range of motion. Not having much pain. Continue mobilization. Follow-up in 6 months with repeat x-rays. Status post left total knee arthroplasty. 03/08/2024 Other Patient would like to proceed with repeat corticosteroid injections into the bilateral knees, which we have proceeded with. He is considering knee replacement in the future. We will see him back on an as-needed basis. 06/21/2024 Other I discussion with the patient regarding his left knee pain. Does have severe osteoarthritis of the left knee. We discussed treatment options. Has exhausted conservative management no relief. Will proceed forward with left total knee arthroplasty. He understands risk and benefits of the procedure. No guarantees made. Will plan for left total knee arthroplasty with freddy bowman and nephew. Will have him received clearance from his PCP and repeat A1c. Left knee osteoarthritis 07/26/2024 Other Patient is a 68-year-old male presenting today for his left knee osteoarthritis. He is exhausted conservative management. Do believe total knee arthroplasty can provide him with some benefit. Discussed risk and benefits of surgery in detail. No guarantees send and signed in the office today. Plan for left total knee arthroplasty. Left knee osteoarthritis 09/06/2024 Other Patient overall doing very well today in regard to his left total knee arthroplasty. Mobilizing quite well. Range of motion he is fairly stiff but overall progressing appropriately. Continue DVT prophylaxis. Follow-up in 1 month for clinical exam no x-rays. Status post left total knee arthroplasty 10/04/2024 Other Patient doing well today 6 weeks postop. Range of motion improving. Continue with aggressive PT. He may start to drive. Will see him back in the office in 6 weeks with x-rays Status post left total knee arthroplasty Plan Of Treatment Pending Test Test Name Order Date PT - Evaluate and Treat, as directed, 2 - 3 times a week x 4 - 6 weeks 07/26/2024 XR Foreign Body Loc Eye Bilateral 2024 XR Knee 1 or 2 Views Left 07/23/2024 XR Knee Standing AP Bilateral 07/26/2024 XR Knee Standing AP Bilateral 07/26/2024 [facility]- KNEE 4 VIEW LEFT-[id number] 06/21/2024 [facility]- KNEE 4 VIEW RIGHT [id number] 06/21/2024 [facility]- KNEE 2 VIEW LEFT - 24051 12/20/2024 [facility]- KNEE 2 VIEW LEFT - 60051 09/06/2024 [facility]- KNEE 2 VIEW LEFT - 29609 10/04/2024 MRI Knee Surg.Navigate or Plan ONLY Left 07/23/2024 Hip to ankle Lt -[id number] visioneer 024 MRI : Knee, Left. Bowman & Nephew Visiona shanita including long leg films [id number] 06/21/2024 Next Appt Details Provider Name:Daniele lr, 01/31/2025 01:10:00 PM, [address], [place], [address], Insurance Providers Payer Name Payer Address Payer Phone Subscriber Number Group Number Insured Name Patient Relationship to Insured Coverage Start Date Coverage End Date Wilfrid [address] [place] [address] [id number] [id number] LOCKE Spouse - patient is the spouse of the insured Medications Administered Medication Instructions Date of Administration Dosage Notes BUPIVACAINE 03/08/2024 4 mL Depo-Medrol 03/08/2024 2 mL lidocaine 03/08/2024 4 mL
--- OUTSIDE RECORDS SUMMARY | 2025-01-26 08:16 | XMS_ITS | Clinical Summary ---
Author Organization [facility] Address [address] [place] [address] Care Team Providers Care Service Loss Control Consultant Name Role Phone Tulio Madrid MD Primary Care Provider [phone] Allergies Active Allergy Reactions Criticality Noted Date Comments Oxycodone Other 07/31/2022 Oxycodone-Acetaminophen 07/31/2022 Medications atorvastatin (Lipitor) 20 mg tablet atorvastatin 20 mg tablet TAKE 1 TABLET BY MOUTH EVERYDAY AT BEDTIME 04/25/20 20 Active colchicine 0.6 mg tablet Take 0.6 mg by mouth in the morning and at bedtime. 11/16/19 21 Active diclofenac (Voltaren) 50 mg EC tablet Take 50 mg by mouth in the morning and at bedtime. Active febuxostat (Uloric) 40 mg tablet febuxostat 40 mg tablet TAKE 1 TABLET BY MOUTH EVERY DAY 04/25/20 20 Active gabapentin (Neurontin) 300 mg capsule gabapentin 300 mg capsule TAKE 1 CAPSULE BY MOUTH THREE TIMES A DAY 11/16/19 21 Active lisinopril 5 mg tablet lisinopril 5 mg tablet TAKE 1 TABLET BY MOUTH EVERY DAY Active metFORMIN XR (Glucophage-XR ) 500 mg 24 hr tablet metformin ER 500 mg tablet,extended release 24 hr TAKE 1 TABLET BY MOUTH EVERY DAY IN THE MORNING Active semaglutide (Ozempic) 1 mg/dose (4 mg/3 mL) pen injector Ozempic 1 mg/dose (4 mg/3 mL) subcutaneous pen injector Active traMADol (Ultram) 50 mg tablet tramadol 50 mg tablet TAKE 1 TABLET BY MOUTH 3 TIMES A DAY NEEDED FOR LUMBAR RADICULOPATHY Active testosterone cypionate (Depo-Testoste brenden) 200 mg/mL injection INJECT 1/2 ML INTRAMUSCULARLY EVERY 2 WEEKS 07/22/19 23 Active tiZANidine (Zanaflex) 4 mg tablet TAKE 2 TABLETS BY MOUTH EVERY DAY AT BEDTIME 07/11/20 22 Active Active Problems Problem Noted Date Diagnosed Date Benign prostatic hyperplasia with urinary obstru ction 07/31/2022 History of colonic polyps 07/31/2022 Hydronephrosis with renal and ureteral calculus obstruction 07/31/2022 Liver mass 07/31/2022 continuous churn 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 use of anticoagulant therapy 0 07/31/2022 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 07/31/2022 Nocturia 07/31/2022 Asthma 12/11/2021 Back pain 12/11/2021 Diabetes mellitus 12/11/2021 Gout 12/11/2021 History of pulmonary embolism 12/11/2021 Assessment & Plan (07/31/2022 2:19 PM EST): Currently stable History of severe acute resp iratory syndrome coronavirus 2 (SARS-CoV-2) disease 12/11/2021 Hyperlipidemia 12/11/2021 Assessment & Plan (07/31/2022 2:17 PM EST): Lipid abnormalities are currently well controlled with lipitor 20 mg- LDL currently 58.6 on labs 07/26/2022 Liver function 04/2022 were normal Hypertensive disorder 12/11/2021 Assessment & Plan (07/31/2022 2:18 PM EST): Hypertension is well controlled 114/64 Continue lisinopril 5 mg Recent CR elevated 1.59- his cr typically has been 1.2-1.4 - He has been on antibiotics for Lt foot infection- DFU with wound care. Obesity 12/11/2021 Obstructive sleep apnea syndrome 12/11/2021 Family History Medical History Relation Name Comments Stroke Father Relation Name Status Comments Father Social History Tobacco Use Types Packs/Day Years Used Date Smoking Tobacco: Never Smokeless Tobacco: Never Tobacco Cessation:Counseling Given: Not Answered Alcohol Use Standard Drinks/Week Comments Yes 0 (1 standard drink = 0.6 oz pur e alcohol) occasional [place] Safety & Environment Answer Date Rec orded Fear of Current or Ex-Partner Not on file Emotionally Abused Not on file 09/04/2023 Physically Abused Not on file 09/04/2023 Sexually Abused Not on file 09/04/2023 Physically or Sexually Abused Not on file Sex and Gender Information Value Date Recorded Sex Assigned at Not on file Legal Sex Male 9:30 PM EDT Gender Identity Not on file Sexual Orientation Not on file Last Filed Vital Signs Vital Sign Reading Time Taken Comments Blood Pressure 114/64 07/31/2022 1:39 PM EST Pulse 79 07/31/2022 1:39 PM EST Temperature - - Respiratory Rate - - Oxygen Saturation 97% 07/31/2022 1:39 PM EST Inhaled Oxygen Concentration - - Weight 140 kg (308 lb) 07/31/2022 1:39 PM EST Height 185.4 cm (6' 1 ) 07/31/2022 1:39 PM EST Body Mass Index 40.64 07/31/2022 1:39 PM EST Plan of Treatment Health Maintenance Due Date Last Done Comments CT Colonography 1955 Colonoscopy 1955 Colorectal Cancer Screening 1955 Diabetes: Hemoglobin A1C 1955 FIT-DNA 1955 FIT 1955 FOBT 1955 Medicare Annual Wellness (AWV) 1955 Sigmoidoscopy 1955 Diabetes: Retinopathy Screening 1966 Depression Screening 1968 Diabetes: Urine Protein Screening 1975 Adult Tetanus 1978 Zoster Vaccines (1 of 2) 2006 Fall Risk Screening 2021 Pneumococcal Vaccine: 50+ Years (2 of 2 - PCV) 05/27/2022 05/27/2021 COVID-19 Vaccine ( season) 2024 04/05/2024, 04/20/2023, 04/20/2023, Additional history exists Influenza Vaccine (#1) 2025 , 04/17/2022, 04/07/2021, Additional history exists HIB Vaccines Aged Out No longer eligi ble based on patient's age to complete this topic HPV Vaccines Aged Out No longer eligi ble based on patient's age to complete this topic IPV Vaccines Aged Out No longer eligi ble based on patient's age to complete this topic Meningococcal B Vaccine Aged Out No l onger eligible based on patient's age to complete this topic Meningococcal Vaccine Aged Out No nikko yue eligible based on patient's age to complete this topic Rotavirus Vaccines Aged Out No longer eligible based on patient's age to complete this topic Insurance MEDICARE [facility] Care Teams Service Loss Control Consultant Relationship Specialty Start Date End Date Tulio Madrid MD [address] [place] [address] PCP - General Family Medicine 07/05/24
--- OUTSIDE RECORDS SUMMARY | 2025-01-26 08:16 | XMS_ITS | Encounter Summary ---
Author Organization [facility] Address [address] [place] [address] Care Team Providers Care Odd Piece Checker Name Role Phone Tulio Madrid MD Primary Care Provider [phone] Tulio Madrid MD Unavailable Tulio Madrid MD Primary Care Provider [phone] Encounter Details Date Type Department Care Team (Late Contact Info) Description 07/05/2023 Clinisync Result Encounter [facility] External Department Unsolicited [...] Visit [facility] [address] [place] [address] Tulio Madrid MD [address] [place] [address] documented as of this encounter Procedures Procedure Name Priority Date/Time Associated Diagnosis Comments CT FOOT LT WO CON 07/05/2023 1:5 2 AM EST documented in this encounter Results * CT FOOT LT WO CON (07/05/2023 1:52 AM EST) Anatomical Region Laterality Modality Other 07/05/2023 1:52 AM EST Narrative 07/05/2023 1:54 AM EST [address] [address] [address] Scan Report Signed Patient: WARNER LOCKE MR#: [id number] : 1955 Acct:[id number] Age/Sex: 67 / M ADM Date: 07/04/23 Loc: CT Attending Dr: Tonio Raya D.P.M. Ordering Physician: Tonio Raya D.P.M. Date of Service: 07/04/23 Procedure(s): CT foot LT wo con Accession Number(s): [id number] cc: Tulio Madrid M.D. [place] [id number] Patient Name: WARNER LOCKE MRN: [id number] date: 1955 Sex: M Assigned Patient Location: CT Current Patient Location: Accession/Order Number: [id number] Exam Date: 07/04/2023 10:18 Report Date: 07/05/2023 01:52 At the request of: TONIO RAYA Procedure: CT foot LT wo con EXAMINATION: CT foot LT wo con HISTORY: Hallux Rigidus, Broken Hardware, Non Union COMPARISON: XR foot left 07/02/2023 TECHNIQUE: Multi-planar CT images were created without and/or with IV contrast according to examination type. Dose reduction techniques were achieved by using automated exposure control and/or adjustment of mA and/or kV according to patient size and/or use of iterative reconstruction technique. FINDINGS: BONES: Prior mechanical fusion of the first metatarsophalangeal joint with subsequent fracture of the dorsal plate at the level of the joint. One millimeter step off between the proximal and distal aspect of the plate. No fracture of the screws or appreciable loosening. Moderate degenerative changes of the interphalangeal joint of the first toe. SOFT TISSUES: No visible soft tissue swelling. EFFUSION: None visible. OTHER: Negative. CT/CT foot LT wo con IMPRESSION: 1. Fracture of the dorsal plate placed for fusion of the first metatarsophalangeal joint. No fracture of the screws. Electronically authenticated by: AKASH KENNY Date: 07/05/2023 01:52 Dictated By: Akash Kenny M.D. Signed By: 07/05/23153 DD/ 1 TD/TT: Marketing Segment Manager: Procedure Note Radiology, Radiologist, MD - 07/05/2023 [place] [address] CT Scan Report Signed Patient: WARNER LOCKE CMR#: [id number] : 1955cct:[id number] Age/Sex: 67 / MADM Date: 07/04/23 Loc: CT Attending Dr: Tonio Raya D.P.M. Ordering Physician: Tonio Raya D.P.M. Date of Service: 07/04/23 Procedure(s): CT foot LT wo con Accession Number(s): [id number] cc: Tulio Madrid M.D. [place] [id number] Patient Name: WARNER LOCKE MRN: [id number] date: 1955 Sex: M Assigned Patient Location: CT Current Patient Location: Accession/Order Number: [id number] Exam Date: 07/04/2023 10:18 Report Date: 07/05/2023 01:52 At the request of: TONIO RAYA Procedure: CT foot LT wo con EXAMINATION: CT foot LT wo con HISTORY: Hallux Rigidus, Broken Hardware, Non Union COMPARISON: XR foot left 07/02/2023 TECHNIQUE: Multi-planar CT images were created without and/or with IVcontrast according to examination type. Dose reduction techniques were achieved by using automated exposure control and/or adjustment of mA and/or kV according to patient size and/or use of iterative reconstruction technique. FINDINGS: BONES: Prior mechanical fusion of the first metatarsophalangeal joint with subsequent fracture of the dorsal plate at the level of the joint. One millimeter step off between the proximal and distal aspect of the plate.No fracture of the screws or appreciable loosening. Moderate degenerativechanges of the interphalangeal joint of the first toe. SOFT TISSUES: No visible soft tissue swelling. EFFUSION: None visible. OTHER: Negative. CT/CT foot LT wo con IMPRESSION: 1. Fracture of the dorsal plate placed for fusion of the first metatarsophalangeal joint. No fracture of the screws. Electronically authenticated by: AKASH KENNY Date: 07/05/2023 01:52 Dictated By: Akash Kenny M.D. Signed By:07/05/23153 DD/ 1 TD/TT: Marketing Segment Manager: Generic External Data Provider [facility] Final Result documented in this encounter Visit Diagnoses Not on filedocumented in this encounter Care Teams Odd Piece Checker Relationship Specialty Start Date End Date Tulio Madrid MD PCP - General Family Medicine 01/10/23 01/11/24 Tulio Madrid MD [address] [place] [address] PCP - [facility] 04/13/2306/12 Tulio Madrid MD [address] [place] [address] PCP - General Family Medicine 01/12/24 documented as of this encounter
--- OUTSIDE RECORDS SUMMARY | 2025-01-26 08:16 | XMS_ITS | Encounter Summary ---
Author Organization [facility] Address [address] [place] [address] Care Team Providers Care Toxicologist Name Role Phone Tulio Madrid MD Primary Care Provider [phone] Reason for Visit * Reason Onset Date Comments Med Refill 10/03/2024 Encounter Details Date Type Department Care Team (Late Contact Info) Description 10/03/2024 Refill [facility] [address] [place] [address] Tulio Madrid MD [address] [place] [address] Male hypogonadism Social History Tobacco Use Types Packs/Day Years Used Date Smoking Tobacco: Never Smokeless Tobacco: Never Sex and Gender Information Value Date Recorded Sex Assigned at Not on file Legal Sex Male 7:24 PM EDT Gender Identity Not on file Sexual Orientation Not on file documented as of this encounter Miscellaneous Notes * Telephone Encounter - ARTIE PETERSON - 10/04/2024 9:03 AM EDT MEDICATION SENT TO [facility] documented in this encounter Plan of Treatment Upcoming Encounters Date Type Department Care Team (Late Contact Info) Description 08/16/2025 9:00 AM EST Office Visit [facility] [address] [place] [address] Tulio Madrid MD [address] [place] [address] documented as of this encounter Visit Diagnoses Diagnosis Male hypogonadism Other testicular hypofunction documented in this encounter Care Teams Toxicologist Relationship Specialty Start Date End Date Tulio Madrid MD [address] [place] [address] PCP - General Family Medicine 01/12/24 documented as of this encounter
--- OUTSIDE RECORDS SUMMARY | 2025-01-26 08:17 | XMS_ITS | Encounter Summary ---
Author Organization [facility] Address [address] [place] [address] Care Team Providers Care Loom Stop Checker Name Role Phone Tulio Madrid MD Primary Care Provider [phone] Tulio Madrid MD Unavailable Tulio Madrid MD Primary Care Provider [phone] Encounter Details Date Type Department Care Team (Late Contact Info) Description 10/09/2023 Clinisync Result Encounter [facility] External Department Unsolicited [...] Visit [facility] [address] [place] [address] Tulio Madrid MD [address] [place] [address] documented as of this encounter Procedures Procedure Name Priority Date/Time Associated Diagnosis Comments XR FOOT LT MIN 3V 10/09/2023 5:5 0 AM EDT documented in this encounter Results * XR FOOT LT MIN 3V (10/09/2023 5:50 AM EDT) Anatomical Region Laterality Modality Other 10/09/2023 5:50 AM EDT Narrative 10/09/2023 5:53 AM EDT The [address] [address] XRay Report Signed Patient: WARNER LOCKE MR#: [id number] : 1955 Acct:[id number] Age/Sex: 68 / M ADM Date: 10/08/23 Loc: EC Attending Dr: Tonio Raya D.P.M. Ordering Physician: Tonio Raya D.P.M. Date of Service: 10/08/23 Procedure(s): XR foot LT min 3V Accession Number(s): [id number] cc: Tonio Raya D.P.M.; Tulio Madrid M.D. The [place] [id number] Patient Name: WARNER LOCKE MRN: [id number] date: 1955 Sex: M Assigned Patient Location: Current Patient Location: Accession/Order Number: [id number] Exam Date: 10/08/2023 08:55 Report Date: 10/09/2023 05:50 At the request of: TONIO RAYA Procedure: XR foot LT min 3V PROCEDURE: XR foot LT min 3V HISTORY: LEFT FOOT PAIN COMPARISON: XR foot left 07/02/2023 FINDINGS: BONES:Prior mechanical fusion of the first tarsal-metatarsal joints with prior fracture of the dorsal plate. Resection of the head of the first proximal phalanx with stable irregular bony changes. SOFT TISSUES:Stable soft tissue swelling of first toe. EFFUSION:None visible. OTHER: Negative. XR/XR foot LT min 3V IMPRESSION: 1. Stable surgical changes with hardware failure at the first metatarsophalangeal joint. 2. Stable surgical changes and mild osseous irregularity/healing changes at the distal end of the first proximal phalanx. Osteomyelitis is felt less likely. Electronically authenticated by: AKASH KENNY Date: 10/09/2023 05:50 Dictated By: Akash Kenny M.D. Signed By: 10/09/23 0553 DD/ 0550 TD/TT: Wind Turbine Mechanic: Procedure Note Radiology, Radiologist, MD - 10/09/2023 The [place] [id number] XRay Report Signed Patient: WARNER LOCKE CMR#: [id number] : 1955cct:[id number] Age/Sex: 68 / MADM Date: 10/08/23 Loc: EC Attending Dr: Tonio Raya D.P.M. Ordering Physician: Tonio Raya D.P.M. Date of Service: 10/08/23 Procedure(s): XR foot LT min 3V Accession Number(s): [id number] cc: Tonio Raya D.P.M.; Tulio Madrid M.D. The [place] [address] Patient Name: WARNER LOCKE MRN: [id number] date: 1955 Sex: M Assigned Patient Location: Current Patient Location: Accession/Order Number: [id number] Exam Date: 10/08/2023 08:55 Report Date: 10/09/2023 05:50 At the request of: TONIO RAYA Procedure: XR foot LT min 3V PROCEDURE: XR foot LT min 3V HISTORY: LEFT FOOT PAIN COMPARISON: XR foot left 07/02/2023 FINDINGS: BONES:Prior mechanical fusion of the first tarsal-metatarsal joints withprior fracture of the dorsal plate. Resection of the head of the first proximal phalanx with stable irregular bony changes. SOFT TISSUES:Stable soft tissue swelling of first toe. EFFUSION:None visible. OTHER: Negative. XR/XR foot LT min 3V IMPRESSION: 1. Stable surgical changes with hardware failure at the first metatarsophalangeal joint. 2. Stable surgical changes and mild osseous irregularity/healing changesat the distal end of the first proximal phalanx. Osteomyelitis is felt lesslikely. Electronically authenticated by: AKASH KENNY Date: 10/09/2023 05:50 Dictated By: Akash Kenny M.D. Signed By:10/09/23 0553 DD/ 0550 TD/TT: Wind Turbine Mechanic: us Generic External Data Provider [facility] Final Result documented in this encounter Visit Diagnoses Not on filedocumented in this encounter Care Teams Loom Stop Checker Relationship Specialty Start Date End Date Tulio Madrid MD PCP - General Family Medicine 01/10/23 01/11/24 Tulio Madrid MD [address] [place] [address] PCP - [facility] 04/13/2306/12 Tulio Madrid MD [address] [place] [address] PCP - General Family Medicine 01/12/24 documented as of this encounter
--- OUTSIDE RECORDS SUMMARY | 2025-01-26 08:17 | XMS_ITS | Encounter Summary ---
Author Organization [facility] Address [address] [place] [address] Care Team Providers Care Mva Still Operator Name Role Phone Tulio Madrid MD Primary Care Provider [phone] Encounter Details Date Type Department Care Team ([facility] Contact Info) Description 01/12/2025 Bamboo flowsheet [facility] [address] [place] [address] Tulio Madrid MD [address] [place] [address] Social History Tobacco Use Types Packs/Day Years Used Date Smoking Tobacco: Never Smokeless Tobacco: Never Sex and Gender Information Value Date Recorded Sex Assigned at Not on file Legal Sex Male 7:24 PM EDT Gender Identity Not on file Sexual Orientation Not on file documented as of this encounter Plan of Treatment Upcoming Encounters Date Type Department Care Team ([facility] Contact Info) Description 08/16/2025 9:00 AM EST Office Visit [facility] [address] [place] [address] Tulio Madrid MD [address] [place] [address] documented as of this encounter Visit Diagnoses Not on filedocumented in this encounter Care Teams Mva Still Operator Relationship Specialty Start Date End Date Tulio Madrid MD [address] [place] [address] PCP - General Family Medicine 01/12/24 documented as of this encounter
--- OUTSIDE RECORDS SUMMARY | 2025-01-26 08:17 | XMS_ITS | Encounter Summary ---
Author Organization [facility] Address [address] [place] [address] Care Team Providers Care Hotel Engineer Name Role Phone Tulio Madrid MD Unavailable Tulio Madrid MD Primary Care Provider [phone] Encounter Details Date Type Department Care Team (Late Contact Info) Description 05/18/2024 Clinisync Result Encounter [facility] External Department Unsolicited [...] 08/16/2025 9:00 AM EST Office Visit [facility] [address] [place] [address] Tulio Madrid MD [address] [place] [address] documented as of this encounter Procedures Procedure Name Priority Date/Time Associated Diagnosis Comments XR ABDOMEN 1V 05/18/2024 6:54 AM EST documented in this encounter Results * XR ABDOMEN 1V (05/18/2024 6:54 AM EST) Anatomical Region Laterality Modality Other 05/18/2024 6:54 AM EST Narrative 05/18/2024 6:56 [place] [address] XRay Report Signed Patient: WARNER LOCKE MR#: [id number] : 1955 Acct:[id number] Age/Sex: 68 / M ADM Date: 05/17/24 Loc: RAD Attending Dr: Abiodun MARTELL Ordering Physician: Abiodun Hernandez Date of Service: 05/17/24 Procedure(s): XR abdomen 1V Accession Number(s): [id number] cc: Tulio Madrid M.D.; Abiodun Hernandez The [place] [id number] Patient Name: WARNER LOCKE MRN: [id number] date: 1955 Sex: M Assigned Patient [facility] Current Patient Location: Accession/Order Number: [id number] Exam Date: 05/17/2024 08:50 Report Date: 05/18/2024 06:54 At the request of: ABIODUN HERNANDEZ Procedure: XR abdomen 1V EXAMINATION: XR abdomen 1V HISTORY: Kidney Calculi COMPARISON: 05/27/2023 FINDINGS: KIDNEY/URETER - RIGHT: stable nephrolithiasis measuring up to 10 mm KIDNEY/URETER - LEFT: Stable nephrolithiasis measuring up to 7 mm PELVIS: No visible ureteral calcifications. Any visible calcifications favor phleboliths. BOWEL: No abnormal dilation or deviation. BONES: No acute abnormality. Moderate degenerative change OTHER: Negative. No abnormal gaseous collections. XR/XR abdomen 1V IMPRESSION: Stable bilateral nephrolithiasis Electronically authenticated by: RACHEAL GRAVES Date: 05/18/2024 06:54 Dictated By: Racheal Graves M.D. Signed By: 05/18/2456 DD/ 3 TD/TT: Engraver Machine: Procedure Note Radiology, Radiologist, MD - 05/18/2024 The [place] [id number] XRay Report Signed Patient: WARNER LOCKE CMR#: [id number] : 1955cct:[id number] Age/Sex: 68 / MADM Date: 05/17/24 Loc: RAD Attending Dr: Abiodun MARTELL Ordering Physician: Abiodun Hernandez Date of Service: 05/17/24 Procedure(s): XR abdomen 1V Accession Number(s): [id number] cc: Tulio Madrid M.D.; Abiodun Hernandez [place] [id number] Patient Name: WARNER LOCKE MRN: [id number] date: 1955 Sex: M Assigned Patient Location: RAD Current Patient Location: Accession/Order Number: [id number] Exam Date: 05/17/2024 08:50 Report Date: 05/18/2024 06:54 At the request of: ABIODUN HERNANDEZ Procedure: XR abdomen 1V EXAMINATION: XR abdomen 1V HISTORY: Kidney Calculi COMPARISON: 05/27/2023 FINDINGS: KIDNEY/URETER - RIGHT: stable nephrolithiasis measuring up to 10 mm KIDNEY/URETER - LEFT: Stable nephrolithiasis measuring up to 7 mm PELVIS: No visible ureteral calcifications. Any visible calcificationsfavor phleboliths. BOWEL: No abnormal dilation or deviation. BONES: No acute abnormality. Moderate degenerative change OTHER: Negative. No abnormal gaseous collections. XR/XR abdomen 1V IMPRESSION: Stable bilateral nephrolithiasis Electronically authenticated by: RACHEAL GRAVES Date: 05/18/2024 06:54 Dictated By: Racheal Graves M.D. Signed By:05/18/2456 DD/ TD/TT: Engraver Machine: Generic External Data Provider [facility] Final Result documented in this encounter Visit Diagnoses Not on filedocumented in this encounter Care Teams Hotel Engineer Relationship Specialty Start Date End Date Tulio Madrid MD [address] [place] [address] PCP - [facility] 04/13/2306/12 uTlio Madrid MD [address] [place] [address] PCP - General Family Medicine 01/12/24 documented as of this encounter
--- OUTSIDE RECORDS SUMMARY | 2025-01-26 08:17 | XMS_ITS | Encounter Summary ---
Author Organization [facility] Address [address] [place] [address] Care Team Providers Care Procurement Professional Name Role Phone Tulio Madrid MD Primary Care Provider [phone] Encounter Details Date Type Department Care Team [...] 08/16/2025 9:00 AM EST Office Visit [facility] [address] [place] [address] Tulio Madrid MD [address] [place] [address] documented as of this encounter Procedures Procedure Name Priority Date/Time Associated Diagnosis Comments XR CHEST 2V 07/20/2024 5:05 PM EST documented in this encounter Results * XR CHEST 2V (07/20/2024 5:05 PM EST) Anatomical Region Laterality Modality Other 07/20/2024 5:05 PM EST Narrative 07/20/2024 5:07 PM EST The [address] [address] XRay Report Signed Patient: WARNER LOCKE MR#: [id number] : 1955 Acct:[id number] Age/Sex: 68 / M ADM Date: 07/20/24 Loc: PST Attending Dr: Daniele Valencia M.D. Ordering Physician: Daniele Valencia M.D. Date of Service: 07/20/24 Procedure(s): XR chest 2V Accession Number(s): [id number] cc: Daniele Valencia M.D.; Tulio Madrid M.D. The [place] [id number] Patient Name: WARNER LOCKE MRN: [id number] date: 1955 Sex: M Assigned Patient Location: [facility] Current Patient Location: LAB Accession/Order Number: [id number] Exam Date: 07/20/2024 10:06 Report Date: 07/20/2024 17:05 At the request of: DANIELE VALENCIA Procedure: XR chest 2V EXAM: XR chest 2V HISTORY: Preop exam COMPARISON: None. TECHNIQUE: 2 views FINDINGS: The heart and mediastinum are unremarkable lungs are clear. XR/XR chest 2V IMPRESSION: No acute cardiopulmonary pathology. Electronically authenticated by: Te MCARTHUR Date: 07/20/2024 17:05 Dictated By: Te Mcarthur M.D. Signed By: 07/20/241706 DD/ 04 TD/TT: Vision Teacher: Procedure Note Radiology, Radiologist, MD - 07/20/[address] [address] XRay Report Signed Patient: WARNER LOCKE CMR#: [id number] : 1955cct:[id number] Age/Sex: 68 / MADM Date: 07/20/24 Loc: PST Attending Dr: Daniele Valencia M.D. Ordering Physician: Daniele Valencia M.D. Date of Service: 07/20/24 Procedure(s): XR chest 2V Accession Number(s): [id number] cc: Daniele Valencia M.D.; Tulio Madrid M.D. The [place] [address] Patient Name: WARNER LOCKE MRN: [id number] date: 1955 Sex: M Assigned Patient Location: [facility] Current Patient Location: LAB Accession/Order Number: [id number] Exam Date: 07/20/2024 10:06 Report Date: 07/20/2024 17:05 At the request of: DANIELE VALENCIA Procedure: XR chest 2V EXAM: XR chest 2V HISTORY: Preop exam COMPARISON: None. TECHNIQUE: 2 views FINDINGS: The heart and mediastinum are unremarkable lungs are clear. XR/XR chest 2V IMPRESSION: No acute cardiopulmonary pathology. Electronically authenticated by: Te MCARTHUR Date: 07/20/2024 17:05 Dictated By: Te Mcarthur M.D. Signed By:07/20/241706 DD/ 04 TD/TT: Vision Teacher: Generic External Data Provider [facility] Final Result documented in this encounter Visit Diagnoses Not on filedocumented in this encounter Care Teams Procurement Professional Relationship Specialty Start Date End Date Tulio Madrid MD [address] [place] [address] PCP - General Family Medicine 01/12/24 documented as of this encounter
--- OUTSIDE RECORDS SUMMARY | 2025-01-26 08:17 | XMS_ITS | Encounter Summary ---
Author Organization [facility] Address [address] [place] [address] Care Team Providers Care Steel Rule Die Maker Name Role Phone Tulio Madrid MD Unavailable Tulio Madrid MD Primary Care Provider [phone] Encounter Details Date Type Department Care Team (Late Contact Info) Description 02/12/2024 Clinisync Result Encounter [facility] External Department Unsolicited [...] 08/16/2025 9:00 AM EST Office Visit [facility] [address] [place] [address] Tuloi Madrid MD [address] [place] [address] documented as of this encounter Procedures Procedure Name Priority Date/Time Associated Diagnosis Comments XR FOOT LT MIN 3V 02/12/2024 6:2 4 AM EDT documented in this encounter Results * XR FOOT LT MIN 3V (02/12/2024 6:24 AM EDT) Anatomical Region Laterality Modality Other 02/12/2024 6:24 AM EDT Narrative 02/12/2024 6:26 AM EDT The [address] [address] XRay Report Signed Patient: WARNER LOCKE MR#: [id number] : 1955 Acct:[id number] Age/Sex: 68 / M ADM Date: 02/11/24 Loc: EC Attending Dr: Tonio Raya D.P.M. Ordering Physician: Tonio Raya D.P.M. Date of Service: 02/11/24 Procedure(s): XR foot LT min 3V Accession Number(s): [id number] cc: Tonio Raya D.P.M.; Tulio Madrid M.D. The [address] [address] Patient Name: WARNER LOCKE MRN: [facility]:[id number] date: 1955 Sex: M Assigned Patient Location: Current Patient Location: Accession/Order Number: [id number] Exam Date: 02/11/2024 10:36 Report Date: 02/12/2024 06:24 At the request of: TONIO RAYA Procedure: XR foot LT min 3V PROCEDURE: XR foot LT min 3V HISTORY: LEFT FOOT PAIN COMPARISON: XR foot left 10/08/2023 FINDINGS: BONES:Prior mechanical fusion of the first metatarsophalangeal joint via dorsal plate and screws. Known fracture of metallic plate with distal fragment displaced 6 mm caudal to the proximal portion of the plate. Stable surgical changes/postoperative changes of distal end of first proximal phalanx. Flattening of plantar arch. SOFT TISSUES:No visible soft tissue swelling. EFFUSION:None visible. OTHER: Negative. XR/XR foot LT min 3V IMPRESSION: 1. Stable fracture of hardware involving prior fusion of the first metatarsophalangeal joint. Electronically authenticated by: AKASH KENNY Date: 02/12/2024 06:24 Dictated By: Akash Kenny M.D. Signed By: 02/12/24625 DD/ 3 TD/TT: Field Auto Appraiser: Procedure Note Radiology, Radiologist, - 02/12/2024 [place] [address] XRay Report Signed Patient: WARNER LOCKE CMR#: [id number] : 1955cct:[id number] Age/Sex: 68 / MADM Date: 02/11/24 Loc: EC Attending Dr: Tonio Raya D.P.M. Ordering Physician: Tonio Raya D.P.M. Date of Service: 02/11/24 Procedure(s): XR foot LT min 3V Accession Number(s): [id number] cc: Tonio Raya D.P.M.; Tulio Madrid M.D. The [place] [id number] Patient Name: WARNER LOCKE MRN: [id number] date: 1955 Sex: M Assigned Patient Location: Current Patient Location: Accession/Order Number: [id number] Exam Date: 02/11/2024 10:36 Report Date: 02/12/2024 06:24 At the request of: TONIO RAYA Procedure: XR foot LT min 3V PROCEDURE: XR foot LT min 3V HISTORY: LEFT FOOT PAIN COMPARISON: XR foot left 10/08/2023 FINDINGS: BONES:Prior mechanical fusion of the first metatarsophalangeal joint via dorsal plate and screws. Known fracture of metallic plate with distal fragment displaced 6 mm caudal to the proximal portion of the plate. Stablesurgical changes/postoperative changes of distal end of first proximal phalanx. Flattening of plantar arch. SOFT TISSUES:No visible soft tissue swelling. EFFUSION:None visible. OTHER: Negative. XR/XR foot LT min 3V IMPRESSION: 1. Stable fracture of hardware involving prior fusion of the first metatarsophalangeal joint. Electronically authenticated by: AKASH KENNY Date: 02/12/2024 06:24 Dictated By: Akash Kenny M.D. Signed By:02/12/24625 DD/ 3 TD/TT: Field Auto Appraiser: us Generic External Data Provider [facility] Final Result documented in this encounter Visit Diagnoses Not on filedocumented in this encounter Care Teams Steel Rule Die Maker Relationship Specialty Start Date End Date Tulio Madrid MD [address] [place] [address] [facility]2306[facility]12 Tulio Madrid MD [address] [place] [address] PCP - General Family Medicine 01/12/24 documented as of this encounter
--- OUTSIDE RECORDS SUMMARY | 2025-01-26 08:17 | XMS_ITS | Encounter Summary ---
Author Organization [facility] Address [address] [place] [address] Care Team Providers Care Power System Engineer Name Role Phone Tulio Madrid MD Unavailable Tulio Madrid MD Primary Care Provider [phone] Reason for Visit * Reason Comments Med Refill Encounter Details Date Type Department Care Team (Late Contact Info) Description 03/09/2024 Refill [facility] [address] [place] [address] Tulio Madrid MD [address] [place] [address] 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) Social History Tobacco Use Types Packs/Day Years [...] 08/16/2025 9:00 AM EST Office Visit [facility] [address] [place] [address] Tulio Madrid MD [address] [place] [address] documented as of this encounter Visit Diagnoses Diagnosis 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) documented in this encounter Care Teams Power System Engineer Relationship Specialty Start Date End Date Tulio Madrid MD [address] [place] [phone] PCP - [facility] 04/13/2306/12 Tulio Madrid MD [address] [place] [address] PCP - General Family Medicine 01/12/24 documented as of this encounter
--- OUTSIDE RECORDS SUMMARY | 2025-01-26 08:17 | XMS_ITS | Encounter Summary ---
Author Organization [facility] Address [address] [place] [address] Care Team Providers Care Hand Drawer In Name Role Phone Tulio Madrid MD Primary Care Provider [phone] Encounter Details Date Type Department Care Team (Late Contact Info) Description 11/05/2024 Abstract [facility] [address] [place] [address] Tulio Madrid MD [address] [place] [address] Social History Tobacco Use Types Packs/Day Years [...] 08/16/2025 9:00 AM EST Office Visit [facility] [address] [place] [address] Tulio Madrid MD [address] [place] [address] documented as of this encounter Visit Diagnoses Not on filedocumented in this encounter Care Teams Hand Drawer In Relationship Specialty Start Date End Date Tulio Madrid MD [address] [place] [address] PCP - General Family Medicine 01/12/24 documented as of this encounter
--- OUTSIDE RECORDS SUMMARY | 2025-01-26 08:17 | XMS_ITS | Encounter Summary ---
Author Organization [facility] Address [address] [place] [address] Care Team Providers Care Fruit Harvester Name Role Phone Tulio Madrid MD Primary Care Provider [phone] Encounter Details Date Type Department Care Team (Late st Contact Info) Description 01/13/2025 Clinisync Result Encounter [facility] External Department Unsolicited Tulio Madrid MD [address] [place] [address] Social History Tobacco Use Types Packs/Day Years [...] Office Visit [facility] [address] [place] [address] Tulio Madrid MD [address] [place] [address] documented as of this encounter Procedures Procedure Name Priority Date/Time Associated Diagnosis Comments MLR HEMOGLOBIN A1C Routine 01/13/2025 9 :00 AM EDT [facility] MICROALB CREAT RATIO RANDOM Routine 01/13/2025 8:54 AM EDT documented in this encounter Results * MLR HEMOGLOBIN A1C (01/13/2025 9:00 AM EDT) GLYCOHEMOGLOBIN A1C 5.2 4.5 - 6.2 % TB Comment: ADA RECOMMENDED LIMIT 4.0 - 6.0 ADA THERAPEUTIC TARGET < 7.0 ACTION SUGGESTED > 7.0 ESTIMATED AVERAGE GLUCOSE 103 mg/dL TB 01/13/2025 9:00 AM EDT 01/13/2025 9:04 AM EDT Narrative [facility] - 01/13/2025 10:18 AM EDT us Tulio Madrid MD [facility] Final Result Performing Organization Address [facility] Co de Phone Number [facility] TB * [facility] MICROALB CREAT RATIO RANDOM (01/13/2025 8:54 AM EDT) MICROALBUMIN URINE RANDOM 5.0 <=30.0 mg/dL TB CREATININE URINE RANDOM 253.87 20.00 - 300.00 mg/dL [facility] MICROALBUM CREATININE RATIO UR 19.6 0.0 - 29.9 mg/g [facility] Comment: NO MICROALBUMINURIA 0-29 MG/G CLINICAL MICROALBUMINURIA 30-300 MG/G MACROALBUMINURIA >300 MG/G 01/13/2025 8:54 AM EDT 01/13/2025 9:08 AM EDT Narrative [facility] - 01/13/2025 9:58 AM EDT us Tulio Madrid MD [facility] Final Result Performing Organization Address City/[facility]/ZIP Co de [facility] Number [facility] documented in this encounter Visit Diagnoses Not on filedocumented in this encounter Care Teams Fruit Harvester Relationship Specialty Start Date End Date Tulio Madrid MD [address] [place] [address] PCP - General Family Medicine 01/12/24 documented as of this encounter
--- OUTSIDE RECORDS SUMMARY | 2025-01-26 08:17 | XMS_ITS | Clinical Summary ---
Author Organization [facility] Healthcare Address [address] [place] [address] Care Team Providers Care Environmental Adviser Name Role Phone Tulio Madrid MD Primary Care Provider [phone] Allergies Active Allergy Reactions Criticality Noted Date Comments Oxycodone 07/31/2022 Other Reaction(s): Hyperactive behavior, Other Oxycodone-Acetaminophen Itching,Rash Low 07/31/2022 Medications allopurinol (Zyloprim) 300 MG tablet 1 (one) time each day at the same time. Active baclofen (Lioresal) 20 MG tablet Take 1 tablet by mouth at bedtime. Active diclofenac (Voltaren) 50 MG EC tablet Take 1 tablet by mouth in the morning and 1 tablet before bedtime. Active traMADol (Ultram) 50 MG tablet TAKE 1 TABLET BY MOUTH 3 TIMES A DAY NEEDED FOR LUMBAR RADICULOPATHY Active tiZANidine (Zanaflex) 4 MG tablet Take 4 mg by mouth every 6 (six) hours if needed for muscle spasms Active diazePAM (Valium) 10 MG tablet Take by mouth every 8 (eight) hours if needed Active atorvastatin (Lipitor) 20 MG tabletIndication s:Dyslipidemia Take 1 tablet (20 mg) by mouth at bedtime 90 tablet 3 09/30/19 24 Active metFORMIN XR (Glucophage-XR) 500 MG 24 hr tabletIndication s:Morbid obesity (CMS-HCC),Polyne uropathy due to type 2 diabetes mellitus (HCC),Type 2 diabetes mellitus with hyperglycemia, without long-term current use of insulin ([facility]) TAKE 1 TABLET BY MOUTH EVERY DAY IN THE MORNING 90 tablet 3 06/07/20 24 Active lisinopril 5 MG tabletIndication s:Morbid obesity (CMS-HCC),Polyne uropathy due to type 2 diabetes mellitus (HCC),Type 2 diabetes mellitus with hyperglycemia, without long-term current use of insulin ([facility]) TAKE 1 TABLET BY MOUTH EVERY DAY 90 tablet 3 06/07/20 24 Active probenecid (Benemid) 500 MG tabletIndication s:Arthritis, gouty Take 1 tablet (500 mg) by mouth every 12 (twelve) hours 60 tablet 3 07/15/19 25 Active Syringe/Needle, Disp, (B-D 3CC LUER-HERMINIO SYR 23GX1 ) 23G X 1 3 ML miscIndications: Male hypogonadism Inject 1 each into the shoulder, thigh, or buttocks every 14 (fourteen) days 50 each 11 10/05/19 25 Active colchicine 0.6 MG tabletIndication s:Arthritis, gouty Take 1 tablet (0.6 mg) by mouth 3 (three) times a day as needed for muscle/joint pain 60 tablet 3 10/20/19 25 Active Semaglutide, 2 MG/DOSE, (Ozempic, 2 MG/DOSE,) 8 MG/3ML solution pen-injectorIndi cations:Type 2 diabetes mellitus with hyperglycemia, without long-term current use of insulin ([facility]) INJECT 2 MG SUBCUTANEOUSLY WEEKLY 9 mL 3 10/21/19 25 Active febuxostat (Uloric) 40 MG tabletIndication s:Type 2 diabetes mellitus with hyperglycemia, without long-term current use of insulin ([facility]),Morbid obesity ([facility]),Polyne uropathy due to type 2 diabetes mellitus ([facility]) Take 1 tablet (40 mg) by mouth Daily 90 tablet 3 11/04/19 25 Active testosterone cypionate (Depo-Testostero ne) 200 MG/ML injectionIndicat ions:Male hypogonadism Inject 0.5 mL (100 mg) into the shoulder, thigh, or buttocks every 14 (fourteen) days 10 mL 2 11/10/19 25 Active gabapentin (Neurontin) 300 MG capsuleIndicatio ns:Polyneuropath y due to type 2 diabetes mellitus ([facility]) Take 1 capsule (300 mg) by mouth in the morning and 1 capsule (300 mg) in the evening and 1 capsule (300 mg) before bedtime. 270 capsule 12/08/19 25 025 Active traZODone (Desyrel) 50 MG tabletIndication s:Primary insomnia Take 1 tablet (50 mg) by mouth at bedtime 30 tablet 3 12/28/19 25 Active Active Problems Problem Noted Date Diagnosed Date Encounter for long-term current use of medicatio n 08/05/2024 Screening PSA (prostate specific antigen) 2024 Encounter for preoperative assessment 07/15/2024 Assessment & Plan (07/15/2024 9:48 AM EST): Able to proceed with upcoming surgery at low risk for complications. History of DM but controlled with medication. No CAD or HTN. Not having chest pain or palpitations. Recommend routine PAT. Seasonal allergic rhinitis due to pollen 024 Assessment & Plan (01/12/2025 9:44 AM EDT): Symptoms controlled with medication and continue. Assessment & Plan (01/12/2024 9:44 AM EDT): Symptoms controlled with medication and continue. Primary insomnia 01/12/2024 Assessment & Plan (01/12/2025 9:43 AM EDT): Sleeping well with medication and continue. Assessment & Plan (01/12/2024 9:44 AM EDT): Not sleeping well but wants to continue melatonin. If worsens can try trazodone. Polyneuropathy due to type 2 diabetes mellitus 0 07/23/2023 Assessment & Plan (07/15/2024 9:49 AM EST): Neuropathy stable and continue neurontin. Assessment & Plan (01/12/2024 9:44 AM EDT): Neuropathy stable and continue neurontin. Primary osteoarthritis of knees, bilateral 07/23 Annual physical exam 07/23/2023 Assessment & Plan (07/15/2024 9:47 AM EST): Due for labs. Discussed proper diet and regular aerobic exercise. Need aerobic exercise 5-6 days a week for 30 minutes at a time. Smaller portions and limit total calories. Colonoscopy every 10 years. Tetanus every 10 years. Advised not to smoke. Discussed daily Aspirin therapy. Assessment & Plan (07/23/2023 2:27 PM EST): Due for labs. Discussed proper diet and regular aerobic exercise. Need aerobic exercise 5-6 days a week for 30 minutes at a time. Smaller portions and limit total calories. Colonoscopy every 10 years. Tetanus every 10 years. Advised not to smoke. Discussed daily Aspirin therapy. DDD (degenerative disc disease), lumbar 06/26/20 23 Assessment & Plan (01/12/2025 9:43 AM EDT): Pain stable and follow with pain management. Assessment & Plan (01/12/2024 9:44 AM EDT): Pain stable and follow with pain management. Dyslipidemia 06/26/2023 Assessment & Plan (07/15/2024 9:51 AM EST): Due for labs. Arthritis, gouty 06/26/2023 Assessment & Plan (01/12/2025 9:43 AM EDT): No flares and continue allopurinol. Assessment & Plan (01/12/2024 9:43 AM EDT): No flares and continue allopurinol. Male hypogonadism 06/26/2023 NAFL (nonalcoholic fatty liver) 06/26/2023 Class 2 severe obesity due t o excess calories with serious comorbidity and body mass index (BMI) of 37.0 to 37.9 in adult 06/26/2023 Assessment & Plan (01/12/2025 9:43 AM EDT): Weight loss indicated. Assessment & Plan (07/15/2024 9:50 AM EST): Weight down 9 pounds in past year. Continue exercise and diet changes. Obstructive sleep apnea (adult) (pediatric) 06/13 Type 2 diabetes mellitus wit h hyperglycemia, without long-term current use of insulin 06/26/2023 Assessment & Plan (01/12/2025 9:44 AM EDT): Reports BS controlled and due for A1C. Stick to ADA diet and limit carbs. Assessment & Plan (07/15/2024 9:48 AM EST): Reports BS controlled and due for A1C. Stick to ADA diet and limit carbs. Assessment & Plan (01/12/2024 9:44 AM EDT): Reports BS controlled and due for A1C. Stick to ADA diet and limit carbs. Assessment & Plan (07/23/2023 2:27 PM EST): Reports BS controlled and due for A1C. Stick to ADA diet and limit carbs. Pseudophakia 05/16/2023 Age-related nuclear cataract of both eyes 2022 Resolved Problems Problem Noted Date Diagnosed Date Resolved Date Abscess of abdominal wall 10/13/2024 Assessment & Plan (10/13/2024 1:51 PM EDT): Recent abscess but improved after drainage. Use heat PRN. Treat with bactrim. Cover with neosporin. Encounters Date Type Department Care Team Description 01/13/2025 Results Follow-Up [facility] [address] [place] [address] Tulio Madrid MD 01/13/2025 Clinisync Result Encounter [facility] External Department Unsolicited Tulio Madrid MD 01/12/2025 9:00 AM EDT Office Visit [facility] [address] [place] [address] Tulio Madrid MD Type 2 diabetes mellitus with hyperglycemia, without long-term current use of insulin (HCC) (Primary Dx); Arthritis, gouty; Seasonal allergic rhinitis due to pollen; Primary insomnia; Degeneration of intervertebral disc of lumbar region with discogenic back pain; Class 2 severe obesity due to excess calories with serious comorbidity and body mass index (BMI) of 37.0 to 37.9 in adult ([facility]); Type 2 diabetes mellitus with diabetic chronic kidney disease (HCC); Chronic kidney disease, stage 3a ([facility]) 01/12/2025 Bamboo flowsheet [facility] [address] [place] [address] Tulio Madrid MD 12/31/2024 Clinisync Result Encounter [facility] External Department Unsolicited Provider, Generic External Data 12/27/2024 Refill [facility] [address] [place] [address] Tulio Madrid MD Primary insomnia 12/06/2024 Refill [facility] [address] [place] [address] Tulio Madrid MD 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) 11/08/2024 Refill [facility] [address] [place] [address] Tulio Madrid MD Male hypogonadism 11/05/2024 Abstract [facility] [address] [place] [address] Tulio Madrid MD 11/03/2024 Refill [facility] [address] [place] [address] Tulio Madrid MD Type 2 diabetes mellitus with hyperglycemia, without long-term current use of insulin ([facility]); Morbid obesity ([facility]); Polyneuropathy due to type 2 diabetes mellitus ([facility]) from Last 3 Months Family History Medical History Relation Name Comments Cancer Father Diabetes Father Hypertension Father Diabetes Mother Hypertension Mother Relation Name Status Comments Father Mother Social History Tobacco Use Types Packs/Day Years Used Date Smoking Tobacco: Never Smokeless Tobacco: Never Tobacco Cessation:Counseling Given: Not Answered Sex and Gender Information Value Date Recorded [...] Mass Index 37.62 01/12/2025 8:53 AM EDT Plan of Treatment Upcoming Encounters Date Type Department Care Team (Late st Contact Info) Description 08/16/2025 9:00 AM EST Office Visit [facility] [address] [place] [address] Tulio Madrid MD [address] [place] [address] Health Maintenance Due Date Last Done Comments CT Colonography 1956 FIT-DNA 1956 FIT 1956 FOBT 1955 Sigmoidoscopy 1955 Pneumococcal Vaccine: 65+ Ye ars (2 of 2 - PCV) 05/27/2022 05/27/2021 Diabetes: Hemoglobin A1C 07/16/2024 01/14/2024, 07/14 Diabetes: Retinopathy Screening 03/10/2025 03/10/2023, 03/10/2023, 03/10/2023, Additional history exists Influenza Vaccine (#1) 2025 , 04/12/2023, 04/17/2022, Additional history exists Diabetes: Urine Protein Screening 01/13/2026 025, 01/14/2024 Colonoscopy 07/15/2026 07/15/2016 Colorectal Cancer Screening 07/15/2026 Procedures Procedure Name Priority Date/Time Associated Diagnosis Comments [facility] HEMOGLOBIN A1C Routine 01/13/2025 9: 00 AM EDT [facility] MICROALB CREAT RATIO RANDOM Routine 01/13/2025 8:54 AM EDT [facility] PSA, DIAGNOSTIC Routine 12/31/2024 11:37 AM EDT from Last 3 Months Results * [facility]LR HEMOGLOBIN A1C (01/13/2025 9:00 AM EDT) GLYCOHEMOGLOBIN A1C 5.2 4.5 - 6.2 % [facility] Comment: ADA RECOMMENDED LIMIT 4.0 - 6.0 ADA THERAPEUTIC TARGET < 7.0 ACTION SUGGESTED > 7.0 ESTIMATED AVERAGE GLUCOSE 103 mg/dL TB 01/13/2025 9:00 AM EDT 01/13/2025 9:04 AM EDT Narrative [facility] - 01/13/2025 10:18 AM EDT us Tulio COLLADOISYFIDENCIO Final Result Performing Organization Address [facility]/ZIP Co de Phone Number [facility] * [facility] MICROALB CREAT RATIO RANDOM (01/13/2025 8:54 AM EDT) MICROALBUMIN URINE RANDOM 5.0 <=30.0 mg/dL TB CREATININE URINE RANDOM 253.87 20.00 - 300.00 mg/dL TB MICROALBUM CREATININE RATIO UR 19.6 0.0 - 29.9 mg/g TB Comment: NO MICROALBUMINURIA 0-29 MG/G CLINICAL MICROALBUMINURIA 30-300 MG/G MACROALBUMINURIA >300 MG/G 01/13/2025 8:54 AM EDT 01/13/2025 9:08 AM EDT Narrative [facility] - 01/13/2025 9:58 AM EDT us Tulio NICOLAS Final Result Performing Organization Address City/[facility]/ZIP Co de Phone Number [facility] * PT PSA, DIAGNOSTIC (12/31/2024 11:37 AM EDT) PROSTATE SPECIFIC ANTIGEN DX 1.32 <=4.00 ng/mL [facility]H 12/31/2024 11:3 7 AM EDT 12/31/2024 11:51 AM EDT Narrative [facility] - 12/31/2024 2:26 PM EDT us Generic External Data Provider [facility] F inal Result [facility] TB from Last 3 Months Insurance [employer] Care Teams Environmental Adviser Relationship Specialty Start Date End Date Tulio Madrid MD [address] [place] [phone] PCP - General Family Medicine 01/12/24
--- OUTSIDE RECORDS SUMMARY | 2025-01-26 08:17 | XMS_ITS | Encounter Summary ---
Author Organization [facility] Address [address] [place] [address] Care Team Providers Care Moccasin Sewer Name Role Phone Tulio Madrid MD Primary Care Provider [phone] Encounter Details Date Type Department Care Team (Late Contact Info) Description 01/13/2025 Results Follow-Up [facility] [address] [place] [address] Tulio Madrid MD [address] [place] [address] Social History Tobacco Use Types Packs/Day Years [...] 08/16/2025 9:00 AM EST Office Visit [facility] [address] [place] [address] Tulio Madrid MD [address] [place] [address] documented as of this encounter Visit Diagnoses Not on filedocumented in this encounter Care Teams Moccasin Sewer Relationship Specialty Start Date End Date Tulio Madrid MD [address] [place] [address] PCP - General Family Medicine 01/12/24 documented as of this encounter
--- OUTSIDE RECORDS SUMMARY | 2025-01-26 08:32 | XMS_ITS | CCD ---
Author Organization [facility] Care Team Providers Care Flooring Professional Name Role Phone Dominikjamaal Racheal Unavailable Ant [...] ., DR FELISA Juarez Primary Care Unavailable [facility], DR STEWART Attending Unavailable [facility] DR STEWART Admitting Unavailable [facility], DR STEWART Consulting Unavailable [facility], DR RACHEAL Ayala Admitting Unavailable [facility], DR RACHEAL Ayala Consulting Unavailable [facility], DR RACHEAL Ayala Attending Unavailable BERRIOS ., DR FELISA Juarez [facility] Oliva Consulting Unavailable BERRIOS ., DR FELISA Juarez Primary Care Unavailable [facility], DR RACHEAL Ayala Admitting Unavailable [facility], DR RACHEAL Ayala Consulting Unavailable WE[facility], DR RACHELA Ayala Attending Unavailable ZIEBER, DR ELIN Oliva Consulting Unavailable WE[facility], DR RACHEAL Ayala Admitting Unavailable [facility], DR RACHEAL Ayala Consulting Unavailable BERRIOS ., DR FELISA Juarez Primary Care Unavailable [facility], DR RACHEAL Ayala Attending Unavailable BERRIOS, FELISA Juarez Primary Care Physician [phone] TULIO RUGGIERO Primary Care Physician Monik MCGUIRE, Tulio Unavailable Tulio Ruggiero MD Primary Care Provider Daniele Cruz DO Attending UnavailDaniele Tsai DO Attending Unavailantonio e LIZ HERNANDEZ Attending Unavailable DAVID, LIZ Juarez Attending Unavailable DAVID, LIZ Juarez Attending Unavailable MONIK, TULIO Attending Unavailable MONIK, TULIO Attending Unavailable MONIK, TULIO Attending Unavailable Allergies Allergy Classification Reported Allergen(s) Allergy Type Date of Onset Reaction(s) Facility (3 sources) Acetaminophen / oxyCODONE Drug Allergy Unknown [facility] Other (20 sources) Acetaminophen / oxyCODONE; Translations: [OXYCODONE-ACETAM INOPHEN] Drug Allergy 3 Itching, Rash [facility] Repository (20 sources) oxyCODONE; Translations: [OXYCODONE] Drug Allergy 3 Hyperactive behavior (finding) [facility] Repository (1 source) Acetaminophen / oxyCODONE Drug Allergy [facility] Repository (1 source) oxyCODONE; Translations: [OxyCODONE Hydrochloride] Drug Allergy [facility] Repository Medications Current Medications Medication Drug [...] Polyneuropathy due to type 2 diabetes mellitus ([facility]) , Type 2 diabetes mellitus with hyperglycemia, without long-term current use of insulin ([facility]) TAKE 1 TABLET BY MOUTH THREE TIMES [...] hyperglycemia, without long-term current use of insulin ([facility]) INJECT 2 MG SUBCUTANEOUSLY WEEKLY 9 mL [...] 20mg/24hrs, # 20 tab(s), Refills(s) 3, Pharmacy: [facility]/pharmacy #[id number], 188, cm, 06/03/23 10:01:00 EST, [...] vitor traZODone hydrochloride 50 mg oral tablet (20 [...] needed, # 2 tab(s), Refills(s) 0, Pharmacy: [facility]/pharmacy #[id number], 185.4, cm, 12/05/20 11:15:00 EDT, [...] ; Translations: [Chronic kidney disease, stage 3a ([facility])] 01-12-2025 Chronic Chronic ulcer of skin (5 [...] (current) use of oral hypoglycemic drugs; Translations: [[employer]OR USE ORAL HYPOGLYCEMIC DX] Onset: 3 Episodic Other aftercare (1 source) Other tube filler (current) drug therapy; Translations: [OTH [facility] CURRENT DRUG THERAPY] Onset: 3 Episodic Other [...] Onset: 3 06-26-2023 Chronic Other liver diseases (11 sources) Non-alcoholic fatty liver disease without non-alcoholic [...] (BMI) of 37.0 to 37.9 in adult ([facility])] Onset: 3 07-15-2024 Chronic Other skin disorders [...] CIRC SYS] Onset: 2 Episodic Other aftercare (20 sources) Long-term current use of drug therapy; Translations: [Other senior living (current) drug therapy] Onset: 5 08-05-2024 Episodic [...] 2 Episodic Skin and subcutaneous tissue infections (13 sources) Cellulitis of left toe; Translations: [Abscess [...] Test Name Value Interpretation Reference Range Facility [facility] MICROALB CREAT RATIO RAN DOMon 01-13-2025 CREATININE URINE RANDOM 253.87 mg/dL 20.00 - 300.00 mg/dL [facility] MICROALBUM CREATININE RATIO UR 19.6 mg/g 0.0 - 29.9 mg/g [facility] Comment on above: NO MICROALBUMINURIA 0-29 MG/G CLINICAL MICROALBUMINURIA 30-300 MG/G MACROALBUMINURIA >300 MG/G MICROALBUMIN URINE RANDOM 5 mg/dL NINF - 30.0 mg/dL Count includes the [facility] MHPT PSA, DIAGNOSTICon 12-31 PROSTATE SPECIFIC ANTIGEN DX 1.32 ng/mL NINF - 4.00 ng/mL Count includes the [facility] XR Knee - left 1 or 2 Viewso n 10-04-2024 [place] [address] XRay Report Signed Patient: CARLOS LOCKE MR#: [id number] : 1955 Acct:[id number] Age/Sex: 69 / M ADM Date: 10/04/24 Loc: EC Attending Dr: Daniele Cruz M.D. Ordering Physician: Daniele Cruz M.D. Date of Service: 10/04/24 Procedure(s): XR knee LT 2V Accession Number(s): [id number] cc: Daniele Cruz M.D.; Tulio Ruggiero M.D. [address] [address] Patient Name: CARLOS LOCKE MRN: [facility]:[id number] date: 1955 Sex: M Assigned Patient Location: Current Patient Location: Accession/Order Number: [id number] Exam Date: 10/04/2024 14:50 Report Date: 10/04/2024 14:51 At the request of: DANIELE CRUZ MD Procedure: XR knee LT 2V LEFT KNEE - 2 views CLINICAL HISTORY: Aftercare following joint replacement surgery of left knee COMPARISON: Left knee 2 views FINDINGS: Left TKA without hardware complication. XR/XR knee LT 2V IMPRESSION: NO HARDWARE COMPLICATION. Impression dictated by: Rehan Sheppard Jr., D.ORusty10/04/2024 2:51 PM Dictation Location: [place] [address] Electronically authenticated by: [id number] Y Date: 10/04/2024 14:51 Dictated By: Rehan Sheppard M.D. Signed By: 10/04/24 1453 DD/ 1451 TD/TT: Lead Oracle Developer: [facility] Radiology, Radiologist, - 10/04/2024 [place] [address] XRay Report Signed Patient: CARLOS LOCKE MR#: [id number] : 1955 Acct:[id number] Age/Sex: 69 / M ADM Date: 10/04/24 Loc: EC Attending Dr: Daniele Cruz M.D. Ordering Physician: Daniele Cruz M.D. Date of Service: 10/04/24 Procedure(s): XR knee LT 2V Accession Number(s): [id number] cc: Daniele Cruz M.D.; Tulio Ruggiero M.D. [address] [address] Patient Name: CARLOS LOCKE MRN: [id number] date: 1955 Sex: M Assigned Patient Location: Current Patient Location: Accession/Order Number: [id number] Exam Date: 10/04/2024 14:50 Report Date: 10/04/2024 [...] Sheppard Jr., D.O.10/04/2024 2:51 PM Dictation Location: [place] [address] Electronically authenticated by: [id number] Y Date: 10/04/2024 14:51 Dictated By: Rehan Sheppard M.D. Signed By: 10/04/243 DD/ 50 TD/TT: Lead Oracle Developer: [facility] Radiology Study observation (narrative) [facility] XR Knee - left 1 or 2 ViewsO rdered By: Radiologist Radiology on 10-04-2024 [facility] Work Phone: XR Knee - left 1 or 2 Viewso n 09-06-2024 [place] [address] XRay Report Signed Patient: CARLOS LOCKE MR#: [id number] : 1955 Acct:[id number] Age/Sex: 69 / M ADM Date: 09/06/24 Loc: Attending Dr: Daniele Cruz M.D. Ordering Physician: Daniele Cruz M.D. Date of Service: 09/06/24 Procedure(s): XR knee LT 2V Accession Number(s): [id number] cc: Daniele Cruz M.D.; Tulio Ruggiero M.D. The [address] [address] Patient Name: CARLOS LOCKE MRN: [id number] date: 1955 Sex: M Assigned Patient Location: Current Patient Location: Accession/Order Number: [id number] Exam Date: 09/06/2024 14:51 Report Date: 09/06/2024 [...] Brunilda Rogers M.D.09/06/2024 2:54 PM Dictation Location: [place] [address] Electronically authenticated by: [id number] Y Date: 09/06/2024 14:54 Dictated By: Brunilda Rogers M.D. Signed By: 09/06/24 1456 DD/ 1454 TD/TT: Lead Oracle Developer: [facility] Radiology, Radiologist, MD - 09/06/2024 [place] [address] XRay Report Signed Patient: CARLOS LOCKE MR#: [id number] : 1955 Acct:[id number] Age/Sex: 69 / M ADM Date: 09/06/24 Loc: Attending Dr: Daniele Cruz M.D. Ordering Physician: Daniele Cruz M.D. Date of Service: 09/06/24 Procedure(s): XR knee LT 2V Accession Number(s): [id number] cc: Daniele Cruz M.D.; Tulio Ruggiero M.D. The [address] [address] Patient Name: CARLOS LOCKE MRN: [facility]:[id number] date: 1955 Sex: M Assigned Patient Location: Current Patient Location: Accession/Order Number: [id number] Exam Date: 09/06/2024 14:51 Report Date: 09/06/2024 [...] Brunilda Rogers M.D.09/06/2024 2:54 PM [facility]ictation [facility] Electron[facility] authenticated by: [id number] Y Date: 09/06/2024 14:54 Dictated By: Brunilda Rogers M.D. Signed By: 09/06/24 1456 DD/ 1454 TD/TT: Lead Oracle Developer: [facility] Radiology Study observation (narrative) [facility] XR Knee - left 1 or 2 ViewsO rdered By: Radiologist Radiology on 09-06-2024 [facility] Work Phone: ALL BASIC METABOLIC PANELon 08-24-2024 Anion gap [Moles/Vol] 14.3 mmol/L [facility] Calcium [Mass/Vol] 7.7 mg/dL Low 8.5 - 10. 1 mg/dL [facility] Chloride [Moles/Vol] 108 mmol/L High 98 - 10 7 mmol/L [facility] CO2 [Moles/Vol] 25.4 mmol/L 21.0 - 32.0 mmol/L [facility] Creatinine [Mass/Vol] 1.62 mg/dL High 0.70 - 1.30 mg/dL [facility] GFR/1.73 sq M.predicted CKD-EPI (S/P/Bld) [Vol rate/Area] 52 Low >=60 mL/min/1.73m 2 [facility] Glucose [Mass/Vol] 112 mg/dL High 74 - 106 mg/dL [facility] Interpretation and review of laboratory results Abnormal [facility] Potassium [Moles/Vol] 4.7 mmol/L 3.5 - 5.1 mmol/L [facility] Sodium [Moles/Vol] 143 mmol/L 136 - 145 mmol/L [facility] TBH EGFR-NON AF CYMRO 43 Low >=60 mL/min/1.73m 2 [facility] Urea nitrogen [Mass/Vol] 28 mg/dL High 7.0 - 18.0 mg/dL [facility] Urea nitrogen/Creatinine [Mass ratio] 17.3 mg/mg [facility] ALL CBC WITH AUTO DIFFon BASOPHILS ABSOLUTE AUTO 0 [facility] Basophils/100 WBC (Bld) 0.6 % 0.2 - 2.0 % [facility] Eosinophils/100 WBC (Bld) 4.9 % 0.9 - 7.0 % [facility] Erythrocyte distribution width (RBC) [Ratio] 13.5 % 11.0 - 15.0 % [facility] Hematocrit (Bld) [Volume fraction] 43.4 % 42.0 - 54.0 % [facility] Hemoglobin (Bld) [Mass/Vol] 14.7 g/dL 14.0 - 18.0 g/dL [facility] IMMATURE GRANULOCYTES ABS AUTO 0.03 [facility] Immature granulocytes/100 WBC (Bld) 0.4 % 0.0 - 0.5 % [facility] Interpretation and review of laboratory results Abnormal [facility] LYMPHOCYTES ABSOLUTE AUTO 2.2 [facility] Lymphocytes/100 WBC (Bld) 30.6 % 20.5 - 60.0 % [facility] MCH (RBC) [Entitic mass] 32.8 pg 25.9 - 34.0 pg [facility] MCHC (RBC) [Mass/Vol] 33.9 g/dL 29.9 - 35.2 g/dL [facility] MCV (RBC) [Entitic vol] 96.9 fL High 80.0 - 94.0 fL [facility] MONOCYTES ABSOLUTE AUTO 0.6 [facility] Monocytes/100 WBC (Bld) 8.3 % 1.7 - 12.0 % [facility] NEUTROPHILS ABSOLUTE AUTO 3.9 [facility] Neutrophils/100 WBC (Bld) 55.2 % 43.0 - 75.0 % [facility] Platelet mean volume (Bld) [Entitic vol] 8.8 fL Low 9.5 - 13.5 fL [facility] TB EO # 0.4 [facility] TB PLT [address] [facility] RBC 4.48 [address] [facility] WBC 7.1 [facility] XR Knee - left 4 Viewson [address] [address] XRay Report Signed Patient: CARLOS LOCKE MR#: [id number] : 1955 Acct:[id number] Age/Sex: 69 / M ADM Date: 08/23/24 Loc: SURGOUT Attending Dr: Daniele Cruz M.D. Ordering Physician: Daniele Cruz M.D. Date of Service: 08/23/24 Procedure(s): XR knee LT 4V Accession Number(s): [id number] cc: Daniele Cruz M.D.; Tulio Ruggiero M.D. The [place] [address] Patient Name: CARLOS LOCKE MRN: [facility]:[id number] date: 1955 Sex: M Assigned Patient Location: [facility] Current Patient Location: [facility] Accession/Order Number: [id number] Exam Date: 08/23/2024 12:30 Report Date: 08/23/2024 [...] Graves M.D. Signed By: 08/23/24 1308 DD/ 130 TD/TT: Lead Oracle Developer: [facility] Radiology, Radiologist, MD - 08/23/[address] [address] XRay Report Signed Patient: CARLOS LOCKE MR#: [id number] : 1955 Acct:[id number] Age/Sex: 69 / M ADM Date: 08/23/24 Loc: SURGOUT Attending Dr: Daniele Cruz M.D. Ordering Physician: Daniele Cruz M.D. Date of Service: 08/23/24 Procedure(s): XR knee LT 4V Accession Number(s): [id number] cc: Daniele Cruz M.D.; Tulio Ruggiero M.D. [place] [address] Patient Name: CARLOS LOCKE MRN: [id number] date: 1955 Sex: M [facility] Accession/Order Number: [id number] Exam Date: 08/23/2024 12:30 Report Date: 08/23/2024 [...] Signed By: 08/23/24 1308 DD/ 1305 TD/TT: Lead Oracle Developer: [facility] Radiology Study observation (narrative) [facility] XR Knee - left 4 ViewsOrdere d By: Radiologist Radiology on 08-23-2024 [facility] Work Phone: ALL TYPE AND SCREENon 2024 ABO and Rh group Nom (Bld) Blood group B Rh(D) positive [facility] ALL TYPE AND SCREENon 2024 ABO and Rh group Nom (Bld) Blood group B Rh(D) positive [facility] XR Knee Standing AP Bilatera nikko 07-27-2024 [...] Electronically Signed in Other Vendor System) Normal [facility] MRI Knee Surg.Navigate or Pl an ONLY [...] Electronically Signed in Other Vendor System) Normal [facility] XR Knee 1 or 2 Views Lefton [...] suprapatellar effusion. Final Dictated by: Racheal Morales MD. Dictated DT/TM: 07/23/2024 10:11 am Signed by: Racheal Morales MD Signed (Electronic Signature): 07/23/2024 10:12 am (If Report Is Signed, Electronically Signed in Other Vendor System) Normal [facility] ALL CBC WITH AUTO DIFFon BASOPHILS ABSOLUTE AUTO 0.1 [facility] Basophils/100 WBC (Bld) 0.9 % 0.2 - 2.0 % [facility] Eosinophils/100 WBC (Bld) 4.9 % 0.9 - 7.0 % [facility] Erythrocyte distribution width (RBC) [Ratio] 13.7 % 11.0 - 15.0 % [facility] Hematocrit (Bld) [Volume fraction] 44.7 % 42.0 - 54.0 % [facility] Hemoglobin (Bld) [Mass/Vol] 14.9 g/dL 14.0 - 18.0 g/dL [facility] IMMATURE GRANULOCYTES ABS AUTO 0.02 [facility] Immature granulocytes/100 WBC (Bld) 0.3 % 0.0 - 0.5 % [facility] Interpretation and review of laboratory results Abnormal [facility] LYMPHOCYTES ABSOLUTE AUTO 1.5 [facility] Lymphocytes/100 WBC (Bld) 23 % 20.5 - 60.0 % [facility] MCH (RBC) [Entitic mass] 32.3 pg 25.9 - 34.0 pg [facility] MCHC (RBC) [Mass/Vol] 33.3 g/dL 29.9 - 35.2 g/dL [facility] MCV (RBC) [Entitic vol] 97 fL High 80.0 - 94.0 fL [facility] MONOCYTES ABSOLUTE AUTO 0.5 [facility] Monocytes/100 WBC (Bld) 7.9 % 1.7 - 12.0 % [facility] NEUTROPHILS ABSOLUTE AUTO 4.1 [facility] Neutrophils/100 WBC (Bld) 63 % 43.0 - 75.0 % [facility] Platelet mean volume (Bld) [Entitic vol] 8.8 fL Low 9.5 - 13.5 fL [facility] TBH EO # 0.3 [facility] TB PLT 226 [facility] RBC 4.61 Low [facility] TB WBC 6.6 [facility] TB UA (CLEAN/CATCH) AIR TUCKER/AMBROSE RO IF IND.on 07-20-2024 BILIRUBIN URINE Negative NEGATIVE [facility] BLOOD URINE Negative NEGATIVE [facility] Clarity (U) CLEAR CLEAR [facility] Color (U) LT. YELLOW YELLOW [facility] GLUCOSE URINE UA Negative NEGATIVE mg/dL [facility] Ketones Ql (U) Negative NEGATIVE mg/dL [facility] Leukocyte esterase Test strip Ql (U) Negative NEGATIVE [facility] NITRITE URINE Negative NEGATIVE [facility] pH (U) 6.0 [pH] 5.0 - 9.0 [facility] PROTEIN URINE Negative NEG/TRACE mg/dL [facility] SPECIFIC GRAVITY URINE 1.025 1.005 - 1.025 [facility] URINE MICROSCOPIC INDICATED NO [facility] UROBILINOGEN URINE 0.2 EU/dL 0.2 - 1.0 EU/dL [facility] Reminders Reminders From: Cyndi Montano To: EU - Administrative; Sent: 06/04/2024 12:06:06 EST Show up: 06/04/2024 12:05:00 EST Subject: Ambulatory Reminder Due Date/Time: 05/28/2025 12:05:00 EST Reminder/Recall Patient needs scheduled for a 1 yr f/u, PCP to check PSA. Due back in 06/07 LVM to call and schedule Normal [facility] Urology Office/Clinic Noteon 05-27-2024 Urology Office/Clinic [...] E&M of Est. Patient Moderate 30-39 Min 99456 Influenza immunization status assessed 1030F Medication list [...] E&M of Est. Patient Moderate 30-39 Min 53069 3. Hypogonadism male (E29.1: Testicular hypofunction) Managed by PCP. On T injections. Ordered: Complex E&M Add on G2211 E&M of Est. Patient Moderate 30-39 Min 18537 4. ED (erectile dysfunction) (N52.9: Male erectile dysfunction, unspecified) Failed Tadalafil. A lot of neuropathy. Not interested in additional tx. Ordered: Complex E&M Add on G2211 E&M of Est. Patient Moderate 30-39 Min 67673 Follow-up With When Contact Information LIZ HERNANDEZ PA-C, URL Within 1 year Additional Instructions: Patient Education Kidney Stones, Qcim-no-Riju Problem List/Past Medical History Ongoing Abnormal abdominal [...] urinary obstructio (more content not included)... Normal [facility] Comment on above: Result Comment: Elec tronically Signed By: LIZ HERNANDEZ PA-C.clau\Date and Time Signed: 05/27/24 09:57 EST [place] 11-05-2023 Screens [id number]. [id number] Normal [facility] Screens [id number]#1. 00TIFF Normal [facility] Patient Educationon 11-04-19 Patient Education Urology [...] these instructions at home: Medicines ? Take gamt-xwe-uemqnxx and prescription medicines only as told by [...] include cig (more content not included)... Normal [facility] Urology Office/Clinic Noteon 11-04-2023 Urology Office/Clinic [...] E&M of Est. Patient Moderate 30-39 Min 26501 3. Kidney calculi (N20.0: Calculus of kidney) [...] E&M of Est. Patient Moderate 30-39 Min 42960 XR Abdomen 1 View 4. BPH with [...] E&M of Est. Patient Moderate 30-39 Min 79817 Influenza immunization status assessed 1030F Medication list [...] E&M of Est. Patient Moderate 30-39 Min 75795 Follow-up With When Contact Information LIZ HERNANDEZ PA-C, URL [address] [facility] [place] [address] [phone] Additional Instructions: 6 mos w/ KUB Patient [...] cancer in father History of pulmonary embolism [place] (more content not included)... Normal [facility] Comment on above: Result Comment: Elec tronically Signed By: LIZ HERNANDEZ PA-C\Date and Time Signed: 11/04/23 10:26 EDT\.br\Electronically Co-Signed By: Maru Burr\Date and Time Co-Signed: 11/04/23 09:31 EDT Lab Reportson 10-27-2023 Lab Reports [id number]#1.0 0TIFF Normal [facility] XR LSPINE W_OBLS AND FLEX_EX Ton [...] RACHEAL GRAVES Date: 2022-12-05 09:46 Normal [facility] CBC AUTO DIFFon 10-21-2022 BASO # 0.1 103/ul Normal 0.0-0.1 [facility] Comment on above: Performed By: #### P OCGLUC #### [facility] [address] [place] [address] [address] Juliet García Basophils/100 WBC (Bld) 0.7 % Normal 0.2-2.0 [facility] Comment on above: Performed By: #### P OCGLUC #### [facility] [address] [place] [address] [address] Juliet García EO # 0.4 103/ul Normal 0.0-0.7 [facility] Comment on above: Performed By: #### P OCGLUC #### [facility] [address] [place] [address] [address] Juliet García Eosinophils/100 WBC (Bld) 5.3 % Normal 0.9-7.0 [facility] Comment on above: Performed By: #### P OCGLUC #### [facility] [address] [place] [address] Dr. Juliet García Erythrocyte distribution width (RBC) [Ratio] 14.0 % Normal 11.0-15.0 [facility] Comment on above: Performed By: #### P OCGLUC #### [facility] [address] [place] [address] Dr. Juliet García Hematocrit (Bld) [Volume fraction] 43.6 % Normal 42.0-54.0 [facility] Comment on above: Performed By: #### P OCGLUC #### [facility] [address] [place] [address] Dr. Juliet García Hemoglobin (Bld) [Mass/Vol] 14.9 g/dL Normal 14.0-18.0 [facility] Comment on above: Performed By: #### P OCGLUC #### [facility] [address] [place] [address] Dr. Julite García IG # 0.03 10e3/ul Normal 0.00-0.03 [facility] Comment on above: Performed By: #### P OCGLUC #### [facility] [address] [place] [address] Dr. Juliet García IG % 0.4 % Normal 0.0-0.5 [facility] Comment on above: Performed By: #### P OCGLUC #### [facility] [address] [place] [address] Dr. Juliet García LYMPH # 2.0 103/ul Normal 1.2-3.8 [facility] Comment on above: Performed By: #### P OCGLUC #### [facility] [address] [place] [address] Dr. Juliet García Lymphocytes/100 WBC (Bld) 29.3 % Normal 20.5-60.0 [facility] Comment on above: Performed By: #### P OCGLUC #### [facility] [address] [place] [address] Dr. Juliet García MANUAL DIFF REQ NO Normal [facility] Comment on above: Performed By: #### P OCGLUC #### [facility] [address] [place] [address] Dr. Juliet García MCH (RBC) [Entitic mass] 33.4 pg Normal 25.9-34.0 [facility] Comment on above: Performed By: #### P OCGLUC #### [facility] [address] [place] [address] [address] Juliet García MCHC (RBC) [Mass/Vol] 34.2 g/dL Normal 29.9-35.2 [facility] Comment on above: Performed By: #### P OCGLUC #### [facility] [address] [place] [address] [address] Juliet García MCV (RBC) [Entitic vol] 97.8 fL Critically high 80.0-94.0 [facility] Comment on above: Performed By: #### P OCGLUC #### [facility] [address] [place] [address] Dr. Juliet García MONO # 0.7 103/ul Normal 0.3-0.8 [facility] Comment on above: Performed By: #### P OCGLUC #### [facility] [address] [place] [address] [address] Juliet García Monocytes/100 WBC (Bld) 9.9 % Normal 1.7-12.0 [facility] Comment on above: Performed By: #### P OCGLUC #### [facility] [address] [place] [address] Dr. Juliet García NEUT # 3.7 103/ul Normal 1.4-6.5 [facility] Comment on above: Performed By: #### P OCGLUC #### [facility] [address] [place] [address] Dr. Juliet García Neutrophils/100 WBC (Bld) 54.4 % Normal 43.0-75.0 [facility] Comment on above: Performed By: #### P OCGLUC #### [facility] [address] [place] [address] [address] Juliet García Platelet mean volume (Bld) [Entitic vol] 9.0 fL Critically low 9.5-13.5 [facility] Comment on above: Performed By: #### P OCGLUC #### [facility] [address] [place] [address] Dr. Juliet García PLT 211 103/ul Normal 150-450 [facility] Comment on above: Performed By: #### P OCGLUC #### [facility] Laboratory [address] [address] [address] Juliet García RBC 4.46 106/ul Critically low 4.70-6.10 [facility] Comment on above: Performed By: #### P OCGLUC #### [facility] [address] [address] [address] Juliet García WBC 6.8 103/ul Normal 4.0-11.0 [facility] Comment on above: Performed By: #### P OCGLUC #### [facility] [address] [address] [address] Juliet García POINT OF CARE GLUCOSEon 10-12 Glucose [Mass/Vol] 100 mg/dL Normal 74-106 [facility] Comment on above: Performed By: #### P OCGLUC #### [facility] Laboratory [address] [place] [address] Dr. Juliet García Glucose [Mass/Vol] 94 mg/dL Normal 74-106 [facility] Comment on above: Performed By: #### A 1C #### [facility] Laboratory [address] [place] [address] Dr. Juliet García PROF CHEM 8 (BAS METB)on Anion gap [Moles/Vol] 14.0 mmol/L Normal [facility] Comment on above: Performed By: #### B MP #### [facility] [address] [place] [address] Dr. Juliet García Calcium [Mass/Vol] 9.0 mg/dL Normal 8.5-10.1 [facility] Comment on above: Performed By: #### B MP #### [facility] [address] [place] [address] Dr. Juliet García Chloride [Moles/Vol] 107 mmol/L Normal 98-107 [facility] Comment on above: Performed By: #### B MP #### [facility] [address] [place] [address] Dr. Juliet García CO2 [Moles/Vol] 28.7 mmol/L Normal 21.0-32.0 [facility] Comment on above: Performed By: #### B MP #### [facility] [address] [address] [address] Juliet García Creatinine [Mass/Vol] 1.41 mg/dL Critically high 0.70-1.30 [facility] Comment on above: Performed By: #### B MP #### [facility] [address] [address] [address] Juliet García EGFR-AF CYMRO >60 Normal >=60 [facility] Comment on above: Performed By: #### B MP #### [facility] [address] [address] [address] Juliet García EGFR-NON AF CYMRO 50 mL/min/1.73m2 Critically low >=60 [facility] Comment on above: Performed By: #### B MP #### [facility] [address] [address] [address] Juliet García Glucose [Mass/Vol] 95 mg/dL Normal 74-106 [facility] Comment on above: Performed By: #### B MP #### [facility] [address] [address] [address] Juliet García Potassium [Moles/Vol] 4.7 mmol/L Normal 3.5-5.1 [facility] Comment on above: Performed By: #### B MP #### [facility] [address] [address] [address] Juliet García Sodium [Moles/Vol] 145 mmol/L Normal 136-145 [facility] Comment on above: Performed By: #### B MP #### [facility] [address] [address] [address] Juliet García Urea nitrogen [Mass/Vol] 25.0 mg/dL Critically high 7.0-18.0 [facility] Comment on above: Performed By: #### B MP #### [facility] [address] [address] [address] Juliet García Urea nitrogen/Creatinine [Mass ratio] 17.7 mg/mg Normal [facility] Comment on above: Performed By: #### B MP #### [facility] [address] [address] [address] Juliet García Office Visiton 07-31-2022 Follow-up visit [id number] Carlos Locke 1955 M Date Provider Department Center 07/31/2022 BENTLEY MENDOZA CARD [facility] Family History Problem Relation Age of Onset Stroke Father Family Status - Relation Status Age at Father Level of Service:52187 [place] OFFICE/OUTPATIENT ESTABLISHED MOD MDM 30-39 MIN Reason for Visit and Comments: Hyperlipidemia [182] Hypertension [888394] history of PE [Other] Normal [facility] CULTURE WOUNDon 07-24-2022 CULTURE WOUND Culture Observations : No growth of anaerobes at 72 hours. Isolate 1 Stenotrophomonas maltophilia Moderate growth of ORGANISM 1 Stenotrophomonas maltophilia ANTIBIOTIC M.I.C RX STATUS Levofloxacin 1 S F Trimethoprim/Sulfameth oxazole <=20 S F Normal [facility] Comment on above: Performed By: #### W OUNDCX ####[facility] [address] [place], [place] [address]RwDr. Juliet García GLYCOHEMOGLOBIN A1Con 2022 ADA RECOMMENDATION SEE BELOW Normal [facility] Comment on above: Result Comment: ADA RECOMMENDED LIMIT 4.0 - 6.0 ADA THERAPEUTIC TARGET < 7.0 ACTION SUGGESTED > 7.0 Performed By: #### A 1C #### [facility] [address] [address] [address] Juliet García Glucose [Mass/Vol] 111 mg/dL Normal [facility] Comment on above: Performed By: #### A 1C #### [facility] [address] [address] [address] Juliet García HbA1c (Bld) [Mass fraction] 5.5 % Normal 4.5-6.2 [facility] Comment on above: Performed By: #### A 1C #### [facility] [address] [address] [address] Juliet García ECHOCARDIO M/2D COMPLETEon 1 08-29-2021 ECHOCARDIO M/2D COMPLETE Patient: CARLOS LOCKE. Exam Date: 06/28/2022 : 1955 Gender:M Ordering : DR LOLY BARNARD M.D. Admission #: [id number] Family : Order #: [id number] CLICK HERE TO VIEW EXAM ECHOCARDIOGRAM REPORT [...] Mcmanus M.D. on 07/04/2022 at 13:38 Normal [facility] URIC ACID SERUMon 06-10-2022 Urate [Mass/Vol] 6.9 mg/dL Normal 3.5-7.2 [facility] Comment on above: Performed By: #### A 1C #### [facility] [address] [place] [address] Dr. Juliet García XR KUB 1 VIEWon [...] RACHEAL GRAVES Date: 2022-05-28 07:31 Normal [facility] CBC AUTO DIFFon 05-03-2022 BASO # 0.1 103/ul Normal 0.0-0.1 [facility] Comment on above: Performed By: #### C BC #### [facility] [address] [address] [address] Juliet García Basophils/100 WBC (Bld) 0.9 % Normal 0.2-2.0 [facility] Comment on above: Performed By: #### C BC #### [facility] [address] [address] [address] Juliet García EO # 0.4 103/ul Normal 0.0-0.7 [facility] Comment on above: Performed By: #### C BC #### [facility] [address] [address] [address] Juliet García Eosinophils/100 WBC (Bld) 5.2 % Normal 0.9-7.0 [facility] Comment on above: Performed By: #### C BC #### [facility] [address] [place] [address] Dr. Juliet García Erythrocyte distribution width (RBC) [Ratio] 13.6 % Normal 11.0-15.0 [facility] Comment on above: Performed By: #### C BC #### [facility] [address] [place] [address] Dr. Juliet García Hematocrit (Bld) [Volume fraction] 40.5 % Critically low 42.0-54.0 [facility] Comment on above: Performed By: #### C BC #### [facility] [address] [place] [address] Dr. Juliet García Hemoglobin (Bld) [Mass/Vol] 13.7 g/dL Critically low 14.0-18.0 [facility] Comment on above: Performed By: #### C BC #### [facility] [address] [place] [address] Dr. Juliet García IG # 0.02 10e3/ul Normal 0.00-0.03 [facility] Comment on above: Performed By: #### C BC #### [facility] [address] [place] [address] Dr. Juliet García IG % 0.3 % Normal 0.0-0.5 [facility] Comment on above: Performed By: #### C BC #### [facility] [address] [address] [address] Juliet García LYMPH # 1.9 103/ul Normal 1.2-3.8 [facility] Comment on above: Performed By: #### C BC #### [facility] [address] [place] [address] Dr. Juliet García Lymphocytes/100 WBC (Bld) 27.7 % Normal 20.5-60.0 [facility] Comment on above: Performed By: #### C BC #### [facility] [address] [place] [address] Dr. Juliet García MANUAL DIFF REQ NO Normal [facility] Comment on above: Performed By: #### C BC #### [facility] [address] [place] [address] Dr. Juliet García MCH (RBC) [Entitic mass] 33.3 pg Normal 25.9-34.0 [facility] Comment on above: Performed By: #### C BC #### [facility] [address] [place] [address] Dr. Juliet García MCHC (RBC) [Mass/Vol] 33.8 g/dL Normal 29.9-35.2 [facility] Comment on above: Performed By: #### C BC #### [facility] [address] [place] [address] Dr. Juliet García MCV (RBC) [Entitic vol] 98.3 fL Critically high 80.0-94.0 [facility] Comment on above: Performed By: #### C BC #### [facility] [address] [place] [address] Dr. Juliet García MONO # 0.7 103/ul Normal 0.3-0.8 [facility] Comment on above: Performed By: #### C BC #### [facility] [address] [place] [address] Dr. Juliet García Monocytes/100 WBC (Bld) 9.9 % Normal 1.7-12.0 [facility] Comment on above: Performed By: #### C BC #### [facility] [address] [address] [address] Juliet García NEUT # 3.8 103/ul Normal 1.4-6.5 [facility] Comment on above: Performed By: #### C BC #### [facility] [address] [address] [address] Juliet García Neutrophils/100 WBC (Bld) 56.0 % Normal 43.0-75.0 [facility] Comment on above: Performed By: #### C BC #### [facility] [address] [address] [address] Juliet García Platelet mean volume (Bld) [Entitic vol] 9.0 fL Critically low 9.5-13.5 [facility] Comment on above: Performed By: #### C BC #### [facility] [address] [place] [address] Dr. Juliet García PLT 201 103/ul Normal 150-450 [facility] Comment on above: Performed By: #### C BC #### [facility] [address] [address] [address] Juliet García RBC 4.12 106/ul Critically low 4.70-6.10 [facility] Comment on above: Performed By: #### C BC #### [facility] [address] [place] [address] Dr. Juliet García WBC 6.7 103/ul Normal 4.0-11.0 [facility] Comment on above: Performed By: #### C BC #### [facility] [address] [place] [address] Dr. Juliet García GLYCOHEMOGLOBIN A1Con 2021 ADA RECOMMENDATION SEE BELOW Normal [facility] Comment on above: Result Comment: ADA RECOMMENDED LIMIT 4.0 - 6.0 ADA THERAPEUTIC TARGET < 7.0 ACTION SUGGESTED > 7.0 Performed By: #### A 1C #### [facility] [address] [place] [address] Dr. Juliet García Glucose [Mass/Vol] 108 mg/dL Normal [facility] Comment on above: Performed By: #### A 1C #### [facility] [address] [address] [address] Juliet García HbA1c (Bld) [Mass fraction] 5.4 % Normal 4.5-6.2 [facility] Comment on above: Performed By: #### A 1C #### [facility] [address] [address] [address] Juliet García LIPID PROFILEon 05-03-2022 CHOL-HDL RATIO NORM SEE BELOW Normal [facility] Comment on above: Result Comment: 3.3 - 4.4 LOW RISK 4.4 - 7.1 AVERAGE RISK 7.1 - 11.0 MODERATE RISK >11.0 HIGH RISK Performed By: #### L IPID, CMP #### [facility] [address] [place] [address] Dr. Juliet García Cholesterol [Mass/Vol] 154 mg/dL Normal <=200 [facility] Comment on above: Performed By: #### L IPID, CMP #### [facility] [address] [address] [address] Juliet García Cholesterol in HDL [Mass/Vol] 29 mg/dL Critically low 40-60 [facility] Comment on above: Performed By: #### L IPID, CMP #### [facility] [address] [address] [address] Juliet García Cholesterol in LDL [Mass/Vol] 64.2 mg/dL Normal [facility] Comment on above: Performed By: #### L IPID, CMP #### [facility] [address] [address] [address] Juliet García Cholesterol.total/Ch olesterol in HDL [Mass ratio] 5.3 {ratio} Normal [facility] Comment on above: Performed By: #### L IPID, CMP #### [facility] [address] [address] [address] Juliet García HDL NORMAL > or = 60 mg/dl - LO W CARDIOVASCULAR RISK <40 mg/dl - HIGH CARDIOVASCULAR RISK Normal [facility] Comment on above: Performed By: #### L IPID, CMP #### [facility] [address] [address] [address] Juliet García LDL CALC NORMAL SEE BELOW Normal [facility] Comment on above: Result Comment: <100 mg/dl OPTIMAL 100 - 129 mg/dl NEAR OR ABOVE OPTIMAL 130 - 159 mg/dl BORDERLINE HIGH 160 - 189 mg/dl HIGH >190 mg/dl VERY HIGH Performed By: #### L IPID, CMP #### [facility] [address] [address] [address] Juliet García Triglyceride [Mass/Vol] 304 mg/dL Critically high <=150 [facility] Comment on above: Performed By: #### L IPID, CMP #### [facility] [address] [address] [address] Juliet García VLDL CALC 60.8 mg/dL Normal [facility] Comment on above: Performed By: #### L IPID, CMP #### [facility] [address] [place] [address] Dr. Juliet García PROF 14(COMP METB)on 022 Albumin [Mass/Vol] 3.7 g/dL Normal 3.4-5.0 [facility] Comment on above: Performed By: #### L IPID, CMP #### [facility] [address] [address] [address] Juliet García Albumin/Globulin [Mass ratio] 1.1 {ratio} Normal [facility] Comment on above: Performed By: #### L IPID, CMP #### [facility] [address] [address] [address] Juliet García ALP [Catalytic activity/Vol] 87 U/L Normal 46-116 [facility] Comment on above: Performed By: #### L IPID, CMP #### [facility] [address] [address] [address] Juliet García ALT [Catalytic activity/Vol] 52 U/L Normal 16-63 [facility] Comment on above: Performed By: #### L IPID, CMP #### [facility] [address] [address] [address] Juliet García Anion gap [Moles/Vol] 11.5 mmol/L Normal [facility] Comment on above: Performed By: #### L IPID, CMP #### [facility] [address] [address] [address] Juliet García AST [Catalytic activity/Vol] 27 U/L Normal 15-37 [facility] Comment on above: Performed By: #### L IPID, CMP #### [facility] [address] [place] [address] Dr. Juliet García Bilirubin [Mass/Vol] 0.4 mg/dL Normal 0.2-1.0 [facility] Comment on above: Performed By: #### L IPID, CMP #### [facility] [address] [place] [address] Dr. Juliet García Calcium [Mass/Vol] 8.7 mg/dL Normal 8.5-10.1 [facility] Comment on above: Performed By: #### L IPID, CMP #### [facility] [address] [place] [address] Dr. Juliet García Chloride [Moles/Vol] 106 mmol/L Normal 98-107 [facility] Comment on above: Performed By: #### L IPID, CMP #### [facility] [address] [place] [address] Dr. Juliet García CO2 [Moles/Vol] 28.2 mmol/L Normal 21.0-32.0 [facility] Comment on above: Performed By: #### L IPID, CMP #### [facility] [address] [place] [address] Dr. Juliet García Creatinine [Mass/Vol] 1.21 mg/dL Normal 0.70-1.30 [facility] Comment on above: Performed By: #### L IPID, CMP #### [facility] [address] [place] [address] Dr. Juliet García EGFR-AF CYMRO >60 Normal >=60 [facility] Comment on above: Performed By: #### L IPID, CMP #### [facility] [address] [place] [address] Dr. Juliet García EGFR-NON AF CYMRO =60 Normal >=60 [facility] Comment on above: Performed By: #### L IPID, CMP #### [facility] [address] [place] [address] Dr. Juliet García Globulin (S) [Mass/Vol] 3.4 g/dL Normal [facility] Comment on above: Performed By: #### L IPID, CMP #### [facility] [address] [place] [address] Dr. Juliet García Glucose [Mass/Vol] 100 mg/dL Normal 74-106 [facility] Comment on above: Performed By: #### L IPID, CMP #### [facility] [address] [place] [address] Dr. Juliet García Potassium [Moles/Vol] 4.7 mmol/L Normal 3.5-5.1 [facility] Comment on above: Performed By: #### L IPID, CMP #### [facility] [address] [place] [address] Dr. Juliet García Protein [Mass/Vol] 7.1 g/dL Normal 6.4-8.2 [facility] Comment on above: Performed By: #### L IPID, CMP #### [facility] [address] [place] [address] Dr. Juliet García Sodium [Moles/Vol] 141 mmol/L Normal 136-145 [facility] Comment on above: Performed By: #### L IPID, CMP #### [facility] [address] [place] [address] Dr. Juliet García Urea nitrogen [Mass/Vol] 23.0 mg/dL Critically high 7.0-18.0 [facility] Comment on above: Performed By: #### L IPID, CMP #### [facility] [address] [place] [address] Dr. Juliet García Urea nitrogen/Creatinine [Mass ratio] 19.0 mg/mg Normal [facility] Comment on above: Performed By: #### L IPID, CMP #### [facility] [address] [place] [address] Dr. Juliet García VC CONSULT FOLLOWUPon 2021 VC CONSULT FOLLOWUP Patient: CARLOS LOCKE Exam Date: 04/08/2022 : 1955 Gender:M Ordering : DR RACHEAL GRAVES M.D. Admission #: [id number] Family : Order #: [id number] CLICK HERE [...] Racheal Graves MD on 04/08/2022 at 11:30 [facility] VC EXT VENOUS RT LIMITEDon 0 04-08-2022 VC EXT VENOUS RT LIMITED Patient: CARLOS LOCKE Exam Date: 04/08/2022 : 1955 Gender:M Ordering : DR RACHEAL GRAVES M.D. Admission #: [id number] Family : Order #: [id number] CLICK HERE TO VIEW EXAM RADIOLOGY REPORT [...] Graves MD on 04/08/2022 at 11:31 Normal [facility] VC INJ FOAM SCLERO W US MLTI on 04-03-2022 VC INJ FOAM SCLERO W US MLTI Patient: CARLOS LOCKE Exam Date: 04/03/2022 : 1955 Gender:M Ordering : DR RACHEAL GRAVES M.D. Admission #: [id number] Family : DR NATHALY BOONE . Order #: [id number] CLICK HERE TO VIEW EXAM RADIOLOGY REPORT [...] av (more content not included)... Normal [facility] VC CONSULT FOLLOWUPon 2021 VC CONSULT FOLLOWUP Patient: CARLOS LOCKE Exam Date: 03/25/2022 : 1955 Gender:M Ordering : DR RACHEAL GRAVES M.D. Admission #: [id number] Family : Order #: [id number] CLICK HERE TO VIEW EXAM RADIOLOGY REPORT [...] Kenny M.D. on 03/25/2022 at 08:41 Normal [facility] VC EXT VENOUS RT LIMITEDon 0 03-25-2022 VC EXT VENOUS RT LIMITED Patient: CARLOS LOCKE Exam Date: 03/25/2022 : 1955 Gender:M Ordering : DR RACHEAL GRAVES M.D. Admission #: [id number] Family : Order #: [id number] CLICK HERE TO VIEW EXAM RADIOLOGY REPORT [...] Elin Kenny M.D. on 03/25/2022 at 08:39 [facility] VC ENDOVENOUS ABL 1ST V RTon 03-19-2022 VC ENDOVENOUS ABL 1ST V RT Patient: CARLOS LOCKE Exam Date: 03/19/2022 : 1955 Gender:M Ordering : DR RACHEAL GRAVES M.D. Admission #: [id number] Family : Order #: [id number] CLICK HERE TO VIEW EXAM RADIOLOGY REPORT [...] Graves MD on 03/19/2022 at 08:58 Normal [facility] VC CONSULT FOLLOWUPon 2021 VC CONSULT FOLLOWUP Patient: CARLOS LOCKE Exam Date: 02/18/2022 : 1955 Gender:M Ordering : DR RACHEAL GRAVES M.D. Admission #: [id number] Family : Order #: [id number] CLICK HERE TO VIEW EXAM RADIOLOGY REPORT [...] Graves MD on 02/18/2022 at 09:45 Normal [facility] VC EXT VENOUS LT LIMITEDon 0 02-18-2022 VC EXT VENOUS LT LIMITED Patient: CARLOS LOCKE Exam Date: 02/18/2022 : 1955 Gender:M Ordering : DR RACHEAL GRAVES M.D. Admission #: [id number] Family : Order #: [id number] CLICK HERE TO VIEW EXAM RADIOLOGY REPORT [...] varicose veins remain off of SSV and [place] farmer mid posterior calf. *Exam performed in accordance with [facility] practice guidelines- Peripheral venous ultrasound, October 07, 2009. 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 Admission #: [id number] Family : Order #: [id number] CLICK HERE TO VIEW EXAM RADIOLOGY REPORT [...] Kenny M.D. on 02/13/2022 at 10:15 Normal [facility] VC CONSULT FOLLOWUPon 2021 VC CONSULT FOLLOWUP Patient: CARLOS LOCKE Exam Date: 02/06/2022 : 1955 Gender:M Ordering : DR RACHEAL GRAVES M.D. Admission #: [id number] Family : Order #: [id number] CLICK HERE TO VIEW EXAM RADIOLOGY REPORT [...] M.D. on 02/06/2022 at 09:53 Normal [facility] VC EXT VENOUS LT LIMITEDon 0 02-06-2022 VC EXT VENOUS LT LIMITED Patient: CARLOS LOCKE Exam Date: 02/06/2022 : 1955 Gender:M Ordering : DR RACHEAL GRAVES M.D. Admission #: [id number] Family : Order #: [id number] CLICK HERE TO VIEW EXAM RADIOLOGY REPORT [...] Kenny M.D. on 02/06/2022 at 09:49 Normal [facility] GLYCOHEMOGLOBIN A1Con 2021 ADA RECOMMENDATION SEE BELOW Normal [facility] Comment on above: Result Comment: ADA RECOMMENDED LIMIT 4.0 - 6.0 ADA THERAPEUTIC TARGET < 7.0 ACTION SUGGESTED > 7.0 Performed By: #### A 1C #### [facility] [address] [address] [address] Juliet García Glucose [Mass/Vol] 108 mg/dL Normal [facility] Comment on above: Performed By: #### A 1C #### [facility] [address] [address] [address] Juliet García HbA1c (Bld) [Mass fraction] 5.4 % Normal 4.5-6.2 [facility] Comment on above: Performed By: #### A 1C #### [facility] [address] [address] [address] Juliet García PROF 14(COMP METB)on 022 Albumin [Mass/Vol] 4.0 g/dL Normal 3.4-5.0 [facility] Comment on above: Performed By: #### C MP ####[facility] [address] [id number] Juliet García Albumin/Globulin [Mass ratio] 1.2 {ratio} Normal [facility] Comment on above: Performed By: #### C MP ####[facility] [address] [id number][address] Juliet García ALP [Catalytic activity/Vol] 89 U/L Normal 46-116 [facility] Comment on above: Performed By: #### C MP ####[facility] [address] [id number][address] Juliet García ALT [Catalytic activity/Vol] 81 U/L Critically high 16-63 [facility] Comment on above: Performed By: #### C MP ####[facility] [address] [id number][address] Juliet García Anion gap [Moles/Vol] 13.6 mmol/L Normal [facility] Comment on above: Performed By: #### C MP ####[facility] [id number] [place] [id number]. Juliet García AST [Catalytic activity/Vol] 32 U/L Normal 15-37 [facility] Comment on above: Performed By: #### C MP ####[facility] [address] [place] [address]Dr. Juliet García Bilirubin [Mass/Vol] 0.5 mg/dL Normal 0.2-1.0 [facility] Comment on above: Performed By: #### C MP ####[facility] [address] [place], [place] [id number]. Juliet García Calcium [Mass/Vol] 8.9 mg/dL Normal 8.5-10.1 [facility] Comment on above: Performed By: #### C MP ####[facility] [address] [place] [id number]. Juliet García Chloride [Moles/Vol] 106 mmol/L Normal 98-107 [facility] Comment on above: Performed By: #### C MP ####[facility] Rx[address]cm[address] [place] [id number]. Juliet García CO2 [Moles/Vol] 27.1 mmol/L Normal 21.0-32.0 [facility] Comment on above: Performed By: #### C MP ####[facility] Hzb[address]jzx[address] [place] [id number]. Juliet García Creatinine [Mass/Vol] 1.46 mg/dL Critically high 0.70-1.30 [facility] Comment on above: Performed By: #### C MP ####[facility] [address] [place] [id number]. Juliet García EGFR-AF CYMRO 59 mL/min/1.73m2 Critically low >=60 [facility] Comment on above: Performed By: #### C MP ####[facility] [address] [place] [phone]. Juliet García EGFR-NON AF CYMRO 48 mL/min/1.73m2 Critically low >=60 [facility] Comment on above: Performed By: #### C MP ####[facility] [address] [place] [phone]. Juliet García Globulin (S) [Mass/Vol] 3.4 g/dL Normal [facility] Comment on above: Performed By: #### C MP ####[facility] [address] [place] [address]Dr. Juliet García Glucose [Mass/Vol] 93 mg/dL Normal 74-106 [facility] Comment on above: Performed By: #### C MP ####[facility] [address] [place] [address]Dr. Juliet García Potassium [Moles/Vol] 4.7 mmol/L Normal 3.5-5.1 [facility] Comment on above: Performed By: #### C MP ####[facility] Wh[address]wklwu[address] [place] [address]Dr. Juliet García Protein [Mass/Vol] 7.4 g/dL Normal 6.4-8.2 [facility] Comment on above: Performed By: #### C MP ####[facility] [address] [place] [address]Dr. Juliet García Sodium [Moles/Vol] 142 mmol/L Normal 136-145 [facility] Comment on above: Performed By: #### C MP ####[facility] [address] [place] [address]Dr. Juliet García Urea nitrogen [Mass/Vol] 25.0 mg/dL Critically high 7.0-18.0 [facility] Comment on above: Performed By: #### C MP ####[facility] [address] [place], [place] [address]Lm. Juliet García Urea nitrogen/Creatinine [Mass ratio] 17.1 mg/mg Normal [facility] Comment on above: Performed By: #### C LAKSHMI ####[facility] [address] [place], [place] [address]Xb. Juliet García VC ENDOVENOUS ABL 1ST V LTon 01-30-2022 VC ENDOVENOUS ABL 1ST V LT Patient: CARLOS LOCKE Exam Date: 01/30/2022 : 1955 Gender:M Ordering : DR RACHEAL GRAVES M.D. Admission #: [id number] Family : Order #: [id number] CLICK HERE TO VIEW EXAM RADIOLOGY REPORT [...] M.D. on 01/30/2022 at 12:00 Normal [facility] POINT OF CARE GLUCOSEon - Glucose [Mass/Vol] 84 mg/dL Normal 74-106 [facility] Comment on above: Performed By: #### P OCGLUC #### [facility] [address] [address] [address] Juliet García VC COMP CONSULTATIONon 01-21 VC COMP CONSULTATION Patient: CARLOS LOCKE Exam Date: 01/21/2022 : 1955 Gender:M Ordering : DR RACHEAL GRAVES M.D. Admission #: [id number] Family : Order #: [id number] CLICK HERE TO VIEW EXAM RADIOLOGY REPORT [...] for years. The patient is retired from [employer] after working 42 years. The patient [...] incompetent branch saphenous tributary/varicose veins. Bilateral incompetent dryland farmer veins. PHYSICAL EXAM: The right leg demonstrates [...] pulses were present bilaterally. IMPRESSION: 1. Bilateral qlyz-xr-eingwucy great saphenous vein and mild right small [...] Graves MD on 01/21/2022 at 11:46 Normal [facility] VC VENOUS REFLUX MARIE LMTon 0 01-21-2022 VC VENOUS REFLUX MARIE LMT Patient: CARLOS LOCKE Exam Date: 01/21/2022 : 1955 Gender:M Ordering : DR RACHEAL GRAVES M.D. Admission #: [id number] Family : DR NATHALY BOONE . Order #: [id number] CLICK HERE TO VIEW EXAM RADIOLOGY REPORT [...] Compressibility: Normal. Flow: Mild deep venous reflux. Research Associate Quality Control Qc: Post/prox calf 5.9mm, 0.7s reflux. Prox/med calf [...] MD on 01/21/2022 at 10:40 Normal [facility] POINT OF CARE GLUCOSEon - Glucose [Mass/Vol] 87 mg/dL Normal 74-106 [facility] Comment on above: Performed By: #### P OCGLUC ####[facility] [address] [place], [place] [address]Xc. Juliet García SURGICAL PATHOLOGYon 021 SURGICAL PATHOLOGY Specimen #: [id number] Submitting Physician: JULIET GARCÍA M.D. FINAL DIAGNOSIS [place], [place]; [id number] (12/07/2020) Liver, mass , biopsy (A1, A2, [...] do not hesitate to contact us at [phone] with questions or if additional follow up information becomes available. This case was reviewed in conjunction with the GI pathology fellow, Apoorva Diallo MD. The following stains were performed at the [facility] in order to further characterize this [...] in-situ hybridization tests have been determined [facility] [place] [facility] in a manner consistent with CLIA requirements. [...] Signature) _ SPECIMEN SUBMITTED A: 12 slides [id number] CLINICAL DATA Mass Date of Report: 03/27/2021 Date of Procedure: 03/16/2021 Date of Receipt: 03/15/2021 Submitted by: JULIET GARCÍA M.D. Location: Diagnostic interpretation performed at [facility], [address] [place] [address]. CLIA Number: [id number] Normal [facility] Comment on above: Performed By: #### S #### See report for performing lab information. Vital Signs Date Time Vital Sign Value Performing Clinician Facility 01-12-2025 08:53-0400 Body height 188 cm Tulio Ruggiero MD Work Phone: [facility] 01-12-2025 08:53-0400 Body mass index (BMI) [Ratio] 37.62 kg/m2 Tulio Ruggiero MD Work Phone: [facility] 01-12-2025 08:53-0400 Body temperature 97.11 [degF] Tulio Ruggiero MD Work Phone: [facility] 01-12-2025 08:53-0400 Body weight 132.9 kg Tulio Ruggiero MD Work Phone: [facility] 01-12-2025 08:53-0400 Diastolic blood pressure 84 mm[Hg] Tulio Ruggiero MD Work Phone: [facility] 01-12-2025 08:53-0400 Heart rate 84 /min Tulio Ruggiero MD Work Phone: [facility] 01-12-2025 08:53-0400 Respiratory rate 20 /min Tluio Ruggiero MD Work Phone: [facility] 01-12-2025 08:53-0400 SaO2% (BldA) [Mass fraction] 98 % Tulio Ruggiero MD Work Phone: [facility] 01-12-2025 08:53-0400 Systolic blood pressure 138 mm[Hg] Tulio Ruggiero MD Work Phone: [facility] 10-13-2024 13:22-0400 Body height 188 cm Tulio Ruggiero MD Work Phone: [facility] 10-13-2024 13:22-0400 Body mass index (BMI) [Ratio] 38.26 kg/m2 Tulio Ruggiero MD Work Phone: [facility] 10-13-2024 13:22-0400 Body temperature 97.11 [degF] Tulio Ruggiero MD Work Phone: [facility] 10-13-2024 13:22-0400 Body weight 135.17 kg Tulio Ruggiero MD Work Phone: [facility] 10-13-2024 13:22-0400 Diastolic blood pressure 72 mm[Hg] Tulio Ruggiero MD Work Phone: [facility] 10-13-2024 13:22-0400 Heart rate 97 /min Tulio Ruggiero MD Work Phone: [facility] 10-13-2024 13:22-0400 Respiratory rate 18 /min Tulio Ruggiero MD Work Phone: [facility] 10-13-2024 13:22-0400 SaO2% (BldA) [Mass fraction] 99 % Tulio Ruggiero MD Work Phone: [facility] 10-13-2024 13:22-0400 Systolic blood pressure 136 mm[Hg] Tulio Ruggiero MD Work Phone: [facility] 07-15-2024 09:11-0500 Body mass index (BMI) [Ratio] 37.75 kg/m2 Tulio Ruggiero MD Work Phone: [facility] 07-15-2024 09:11-0500 Body temperature 98.4 [degF] Tulio Ruggiero MD Work Phone: [facility] 07-15-2024 09:11-0500 Body weight 133.36 kg Tulio Ruggiero MD Work Phone: [facility] 07-15-2024 09:11-0500 Diastolic blood pressure 60 mm[Hg] Tulio Ruggiero MD Work Phone: [facility] 01-02-2025 09:11-0500 Heart rate 96 /min Tulio Ruggiero MD Work Phone: [facility] 07-15-2024 09:11-0500 Respiratory rate 18 /min Tulio Ruggiero MD Work Phone: [facility] 07-15-2024 09:11-0500 SaO2% (BldA) [Mass fraction] 96 % Tulio Ruggiero MD Work Phone: [facility] 07-15-2024 09:11-0500 Systolic blood pressure 114 mm[Hg] Tulio Ruggiero MD Work Phone: [facility] 05-27-2024 08:56-0500 Blood Pressure Location LIZ DAVID [facility] 05-27-2024 08:56-0500 Body temperature 98.6 [degF] LIZ DAVID [facility] 05-27-2024 08:56-0500 Diastolic blood pressure 67 mm[Hg] LIZ DAVID [facility] 05-27-2024 08:56-0500 Heart rate 79 /min LIZ DAVID [facility] 05-27-2024 08:56-0500 Respiratory rate 18 /min LIZ DAVID [facility] 05-27-2024 08:56-0500 Systolic blood pressure 117 mm[Hg] LIZ DAVID [facility] 11-04-2023 08:38-0400 Blood Pressure Location LIZ DAVID [facility] 11-04-2023 08:38-0400 Diastolic blood pressure 82 mm[Hg] LIZ DAVID [facility] 11-04-2023 08:38-0400 Heart rate 80 /min LIZ DAVID [facility] 11-04-2023 08:38-0400 Respiratory rate 16 /min LIZ DAVID [facility] 11-04-2023 08:38-0400 Systolic blood pressure 131 mm[Hg] LIZ DAVID [facility] 06-03-2023 09:59-0500 Blood Pressure Location LIZ DAVID [facility] 06-03-2023 09:59-0500 Diastolic blood pressure 74 mm[Hg] LIZ DAVID [facility] 06-03-2023 09:59-0500 Heart rate 70 /min LIZ DAVID [facility] 06-03-2023 09:59-0500 Respiratory rate 16 /min LIZ DAVID [facility] 06-03-2023 09:59-0500 Systolic blood pressure 138 mm[Hg] LIZ DAVID [facility] 05-23-2022 09:45-0500 Body height 187.96 cm Alejandra Cain Other [facility] Other 05-23-2022 09:45-0500 Body mass index (BMI) [Ratio] 40.57 kg/m2 Alejandra Cain Other [facility] Other 05-23-2022 09:45-0500 Body weight 143.34 kg Alejandra Olexa Other [facility] Other 08-07-2021 14:15-0500 Body height 187.96 cm Alejandra Olexa Other [facility] Other 08-07-2021 14:15-0500 Body mass index (BMI) [Ratio] 40.64 kg/m2 Alejandra Olexa Other [facility] Other 08-07-2021 14:15-0500 Body weight 143.61 kg Alejandra Olexa Other [facility] Other 04-12-2021 10:30-0400 Body height 187.96 cm Racheal Dominikjamaal Other [facility] Other 04-12-2021 10:30-0400 Body mass index (BMI) [Ratio] 41.75 kg/m2 Racheal Lehmanjamaal Other [facility] Other 04-12-2021 10:30-0400 Body weight 147.51 kg Racheal Dominikjamaal Other [facility] Other 04-12-2021 10:30-0400 Diastolic blood pressure 71 mm[Hg] Racheal Daniels Other [facility] Other 04-12-2021 10:30-0400 Systolic blood pressure 131 mm[Hg] Racheal Daniels Other [facility] Other Encounters Encounter Date Encounter Type Care Provider Facility Start: 06-02-2025 ambulatory LIZ Martinez ty:[facility] Start: 01-13-2025 End: 01-13-2025 Clinisync Result Encounter Tulio Ruggiero MD Work Phone: [facility] Unsolicited Start: 01-13-2025 End: 01-13-2025 Clinisync Result Encounter Tulio Ruggiero MD Work Phone: [facility] Unsolicited Start: 01-12-2025 End: 01-12-2025 Bamboo flowsheet Tulio Ruggiero MD Work Phone: [facility] Start: 01-12-2025 End: 01-12-2025 Bamboo flowsheet Tulio Ruggiero MD Work Phone: [facility] Start: 01-12-2025 End: 01-12-2025 Office outpatient visit 25 minutes Tulio Ruggiero MD Work Phone: [facility] Comment on above: Type 2 diabetes sol itus with hyperglycemia, without long-term current use of insulin (HCC) (Primary Dx); Arthritis, gouty; Seasonal allergic rhinitis due to pollen; Primary insomnia; Degeneration of intervertebral disc of lumbar region with discogenic back pain; Class 2 severe obesity due to excess calories with serious comorbidity and body mass index (BMI) of 37.0 to 37.9 in adult ([facility]); Type 2 diabetes mellitus with diabetic chronic kidney disease (HCC); Chronic kidney disease, stage 3a ([facility]) Start: 01-12-2025 End: 01-12-2025 ambulatory TULIO RUGGIERO Not Available Start: 12-31-2024 End: 12-31-2024 Clinisync Result Encounter Generic External Data Provider [facility] Unsolicited Start: 12-31-2024 End: 12-31-2024 Clinisync Result Encounter Generic External Data Provider [facility] Unsolicited Start: 12-06-2024 End: 12-07-2024 Refill Tulio Ruggiero MD Work Phone: [facility] Comment on above: Polyneuropathy due t o type 2 diabetes mellitus ([facility]) Start: 11-08-2024 End: 11-09-2024 Refill Tuloi Ruggiero MD Work Phone: [facility] Comment on above: Male hypogonadism Start: 10-19-2024 End: 10-19-2024 Orders Only Tulio Ruggiero MD Work Phone: [facility] Comment on above: Annual physical exam (Primary Dx); Morbid obesity ([facility]); Polyneuropathy due to type 2 diabetes mellitus ([facility]); Type 2 diabetes mellitus with hyperglycemia, without long-term current use of insulin ([facility]); Arthritis, gouty Start: 10-19-2024 End: 10-19-2024 Patient encounter procedure Tulio Ruggiero MD Work Phone: [facility] Work Phone: Start: 10-13-2024 End: 10-13-2024 Bamboo flowsheet Tulio Ruggiero MD Work Phone: [facility] Start: 10-13-2024 End: 10-13-2024 Bamboo flowsheet Tulio Ruggiero MD Work Phone: [facility] Start: 10-13-2024 End: 10-13-2024 Office outpatient visit 15 minutes Tulio Ruggiero MD Work Phone: [facility] Comment on above: Abscess of abdominal wall [...] 08-09-2024 Refill Tulio Ruggiero MD Work Phone: [facility] Comment on above: Morbid obesity ([facility]); Polyneuropathy due to type 2 diabetes mellitus ([facility]); Type 2 diabetes mellitus with hyperglycemia, without long-term current use of insulin ([facility]) Start: 08-05-2024 End: 08-05-2024 Clinisync Result Encounter Generic External Data Provider [facility] Unsolicited Start: 08-05-2024 End: 08-05-2024 Clinisync Result Encounter Generic External Data Provider [facility] Unsolicited Start: 07-28-2024 End: 08-05-2024 Orders Only Tulio Ruggiero MD Work Phone: [facility] Comment on above: Type 2 diabetes sol itus with hyperglycemia, without long-term current use of insulin ([facility]) (Primary Dx); Dyslipidemia ([facility]); Class 2 severe obesity due to excess calories with serious comorbidity and body mass index (BMI) of 37.0 to 37.9 in adult ([facility]); Encounter for long-term current use of medication; Screening PSA (prostate specific antigen) Start: 07-26-2024 End: 07-26-2024 ambulatory [facility] Facility:[facility] Start: 07-23-2024 End: 07-23-2024 ambulatory [facility] Facility:[facility] Start: 07-20-2024 End: 07-20-2024 Clinisync Result [...] encounter procedure Tulio Ruggiero MD Work Phone: [facility] Work Phone: Start: 07-15-2024 End: 07-15-2024 Periodic preventive med est patient 65yrs& older Tulio Ruggiero MD Work Phone: [facility] Comment on above: Annual physical exam (Primary Dx); Encounter for preoperative assessment; Type 2 diabetes mellitus with hyperglycemia, without long-term current use of insulin ([facility]); Arthritis, gouty; 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); Class 2 severe obesity due to excess calories with serious comorbidity and body mass index (BMI) of 37.0 to 37.9 in adult ([facility]); Dyslipidemia ([facility]) Start: 07-15-2024 End: 07-15-2024 Preoperative state Tulio Ruggiero MD Work Phone: [facility] Start: 07-15-2024 End: 07-15-2024 ambulatory TULIO RUGGIERO Not Available Start: 05-27-2024 End: 05-27-2024 ambulatory LIZ HERNANDEZ Facility:[facility] Start: 05-27-2024 End: 05-27-2024 Patient encounter procedure LIZ HERNANDEZ [facility] Start: 04-08-2024 End: 04-09-2024 Refill Tulio Ruggiero MD Work Phone: [facility] Comment on above: Polyneuropathy due t o type 2 diabetes mellitus ([facility]) Start: 04-06-2024 End: 04-07-2024 Refill Tulio Ruggiero MD Work Phone: [facility] Comment on above: Male hypogonadism Start: 11-04-2023 End: 11-04-2023 ambulatory LIZ HERNANDEZ Facility:[facility] Start: 11-04-2023 End: 11-04-2023 Patient encounter procedure LIZ HERNANDEZ [facility] Start: 07-23-2023 Patient encounter procedure Tulio Ruggiero MD Work Phone: [facility] Start: 06-03-2023 End: 06-03-2023 Patient encounter procedure LIZ EHRNANDEZ [facility] Start: 12-05-2022 End: 12-06-[address] FELISA BERRIOS . Facility:[facility] Start: 12-03-2022 End: 12-04-[address] FELISA BERRIOS . Facility: Start: 11-29-2022 End: 11-30-2022 ambulatory NARENDRANKAZ LAKSHMIPATHY . Facility:[facility] Start: 11-12-2022 End: 11-13-[address] FELISA BERRIOS . Facility:[facility] Start: 11-05-2022 End: 11-06-[address] FELISA BERRIOS . Facility:[facility] Start: 10-28-2022 End: 10-29-[address] FELISA BERRIOS . Facility:[facility] Start: 10-21-2022 End: 10-21-[address] FELISA BERRIOS . Facility:[facility] Start: 10-18-2022 Encounter for preprocedural cardiovascular examination [facility] Start: 10-18-2022 Encounter for preprocedural laboratory examination [facility] Start: 10-16-[address] FELISA BERRIOS [...] BELL Facility:[facility] Start: 07-31-2022 End: 07-31-2022 ambulatory [facility] Start: 07-31-2022 End: 08-01-[address] [...] 05-23-2022 End: 05-23-2022 ambulatory Alejandra Cain Other [facility] Other Start: 05-23-2022 Office outpatient vi sit 15 minutes Alejandra Cain [facility] Start: 05-03-2022 End: 05-04-[address] [...] 08-07-2021 End: 08-07-2021 ambulatory Alejandra Cain Other [facility] Other Start: 08-07-2021 Office outpatient vi sit 15 minutes Alejandra Cain [facility] Start: 04-12-2021 Office outpatient vi sit 15 minutes Racheal Daniels [facility] Gastroenterology Procedures Date Procedure Procedure Detail Performing Clinician Start: 01-13-2025 [facility] JOSEPHINE LOERA RANDOM Tulio Ruggieor MD Work Phone: Start: 12-31-2024 MHPT PSA, DIAGNOSTIC Ge neric [...] Gen janette External Data Provider Start: 07-20-2024 [facility] UA (CLEAN/CATCH) AIR TUCKER/MICRO IF IND. Generic External Data Provider Start: 07-20-2024 ALL CBC WITH AUTO DIFF Generic External Data Provider Start: 05-03-[address] RACHEAL GRAVES Comment on above: Performed By: #### P SAD #### [facility] [address] [address] [address] Juliet García Start: 12-07-2020 CT guided [...] Screening for malign ant neoplasm of colon [facility] Start: 08-16-2025 End: 08-16-2025 Patient encounter procedure 08/16/2025 9:00 AM EST Office Visit [facility] [address] [place] [address] Tulio Ruggiero MD [address] [place] [id number] [facility] Start: 03-14-2025 Influenza vaccination Influenza Vacc ine (#1) [facility] Start: 03-10-2025 Glaucoma screening Diabetes: R etinopathy Screening [facility] Start: 01-13-2025 Urine screening for protein Diabetes: Urine Protein Screening [facility] Start: 01-12-2025 End: 01-12-2026 Hemoglobin A1c/Hemoglobin.total in Blood Hemoglobin A1c Lab Routine Type 2 diabetes mellitus with hyperglycemia, without long-term current use of insulin (HCC) Expected: 01/12/2025 (Approximate), Expires: 01/12/2026 [facility] Comment on above: Expected: 01/12/2025 (Approximate), Expires: 01/12/2026 Start: 01-12-2025 End: 01-12-2026 Microalbumin/Creatinine panel in random Urine Microalbumin / creatinine, urine ratio Lab Routine Type 2 diabetes mellitus with hyperglycemia, without long-term current use of insulin (HCC) Expected: 01/12/2025 (Approximate), Expires: 01/12/2026 [facility] Work Phone: Comment on above: Expected: 01/12/2025 (Approximate), Expires: 01/12/2026 Start: 01-12-2025 End: 01-12-2025 Patient encounter procedure [facility] Comment on above: Arrived Start: 10-19-2024 End: 10-19-2025 Rubeola antibody IgG Rubeola antibody IgG Lab Routine Annual physical exam Expected: 10/19/2024 (Approximate), Expires: 10/19/2025 [facility] Work Phone: Comment on above: Expected: 10/19/2024 (Approximate), Expires: 10/19/2025 Start: 10-13-2024 End: 10-13-2024 Patient encounter procedure 10/13/2024 1:15 PM EDT Office Visit [facility] [address] [place] [id number] Tulio Ruggiero MD [address] [place] [address] Arrived [facility] Comment on above: Arrived Start: 08-05-2024 End: 08-05-2025 Basic metabolic 1998 panel - Serum or Plasma Basic metabolic panel Lab Routine Encounter for long-term current use of medication Expected: 08/05/2024 (Approximate), Expires: 08/05/2025 [facility] Comment on above: Expected: 08/05/2024 (Approximate), Expires: 08/05/2025 Start: 08-05-2024 End: 08-05-2025 CBC W Auto Differential panel - Blood CBC and differential Lab Routine Encounter for long-term current use of medication Expected: 08/05/2024 (Approximate), Expires: 08/05/2025 [facility] Comment on above: Expected: 08/05/2024 (Approximate), Expires: 08/05/2025 Start: 08-05-2024 End: 08-05-2025 Hemoglobin A1c/Hemoglobin.total in Blood Hemoglobin A1c Lab Routine Type 2 diabetes mellitus with hyperglycemia, without long-term current use of insulin ([facility]) Expected: 08/05/2024 (Approximate), Expires: 08/05/2025 [facility] Work Phone: Comment on above: Expected: 08/05/2024 (Approximate), Expires: 08/05/2025 Start: 08-05-2024 End: 08-05-2025 Hepatic function 2000 panel - Serum or Plasma Hepatic function panel Lab Routine Encounter for long-term current use of medication Expected: 08/05/2024 (Approximate), Expires: 08/05/2025 [facility] Comment on above: Expected: 08/05/2024 (Approximate), Expires: 08/05/2025 Start: 08-05-2024 End: 08-05-2025 Lipid 1996 panel - Serum or Plasma Lipid panel Lab Routine Dyslipidemia ([facility]) Expected: 08/05/2024 (Approximate), Expires: 08/05/2025 [facility] Comment on above: Expected: 08/05/2024 (Approximate), Expires: 08/05/2025 Start: 08-05-2024 End: 08-05-2025 Prostate specific Ag [Mass/volume] in Serum or Plasma PSA Lab Routine Screening PSA (prostate specific antigen) Expected: 08/05/2024 (Approximate), Expires: 08/05/2025 [facility] Comment on above: Expected: 08/05/2024 (Approximate), Expires: 08/05/2025 Start: 08-05-2024 End: 08-05-2025 Thyrotropin [Units/volume] in Serum or Plasma TSH Lab Routine Class 2 severe obesity due to excess calories with serious comorbidity and body mass index (BMI) of 37.0 to 37.9 in adult ([facility]) Expected: 08/05/2024 (Approximate), Expires: 08/05/2025 [facility] Comment on above: Expected: 08/05/2024 (Approximate), Expires: 08/05/2025 Start: 07-16-2024 Hemoglobin A1c measurement Diabetes: Hemoglobin A1C [facility] Start: 07-15-2024 End: 07-15-2025 Basic metabolic 1998 panel - Serum or Plasma Basic metabolic panel Lab Routine Annual physical exam Expected: 07/15/2024 (Approximate), Expires: 07/15/2025 [facility] Comment on above: Expected: 07/15/2024 (Approximate), Expires: 07/15/2025 Start: 07-15-2024 End: 07-15-2025 CBC W Auto Differential panel - Blood CBC and differential Lab Routine Annual physical exam Expected: 07/15/2024 (Approximate), Expires: 07/15/2025 [facility] Comment on above: Expected: 07/15/2024 (Approximate), Expires: 07/15/2025 Start: 07-15-2024 End: 07-15-2025 Hemoglobin A1c/Hemoglobin.total in Blood Hemoglobin A1c Lab Routine Annual physical exam Expected: 07/15/2024 (Approximate), Expires: 07/15/2025 [facility] Work Phone: Comment on above: Expected: 07/15/2024 (Approximate), Expires: 07/15/2025 Start: 07-15-2024 End: 07-15-2025 Hepatic function 2000 panel - Serum or Plasma Hepatic function panel Lab Routine Annual physical exam Expected: 07/15/2024 (Approximate), Expires: 07/15/2025 [facility] Comment on above: Expected: 07/15/2024 [...] physical exam Expected: 07/15/2024 (Approximate), Expires: 07/15/2025 [facility] Comment on above: Expected: 07/15/2024 (Approximate), Expires: 07/15/2025 Start: 07-15-2024 End: 07-15-2025 Thyrotropin [Units/volume] in Serum or Plasma TSH Lab Routine Annual physical exam Expected: 07/15/2024 (Approximate), Expires: 07/15/2025 [facility] Comment on above: Expected: 07/15/2024 (Approximate), Expires: 07/15/2025 Start: 07-15-2024 End: 07-15-2024 Patient encounter procedure [facility] Comment on above: Arrived Start: 03-14-2024 Influenza vaccination Influenza Vacc ine (#1) [facility] Start: 01-23-2024 Hemoglobin A1c measurement Diabetes: Hemoglobin A1C [facility] Start: 05-27-2022 Pneumococcal Vaccine : 65+ Years (2 of 2 - PCV) Pneumococcal Vaccine: 65+ Years (2 of 2 - PCV) [facility] Start: 1975 Urine screening for protein Diabetes: Urine Protein Screening [facility] Start: 1955 Screening for malign ant neoplasm of colon [facility] Immunizations Immunization Date Immunization Notes Care Provider Michelle thomas 04-19-2024 influenza virus vacc ine, unspecified formulation LIZ HERNANDEZ [facility] 04-20-2023 SARS-CoV-2 mRNA (tozinameran 5y-11y) vaccine LIZ HERNANDEZ [facility] Comment on above: Result Comment: covi d 19 mRNA ([facility]) 04-12-2023 influenza virus vacc ine, unspecified formulation Tulio Ruggiero MD Work Phone: [facility] 04-17-2022 influenza virus vacc ine, unspecified formulation LIZSOFIA HERNANDEZ [facility] 03-23-2022 SARS-CoV-2 (COVID-19 ) [id number] LIZ HERNANDEZ [facility] 10-23-2021 SARS-CoV-2 mRNA (zxtfbbmsbed-hlik-kqkfsk e) vaccine LIZ HERNANDEZ [facility] 05-27-2021 pneumococcal polysaccharide vaccine, 23 valent LIZSOFIA HERNANDEZ [facility] 05-06-2021 SARS-CoV-2 (COVID-19 ) mRNA BNT-162b2 vax LIZSOFIA HERNANDEZ [facility] Comment on above: Result Comment: 2021: [id number] 04-07-2021 influenza virus vacc ine, unspecified formulation LIZSOFIA HERNANDEZ [facility] 09-18-2020 SARS-CoV-2 (COVID-19 ) mRNA BNT-162b2 vax LIZ HERNANDEZ [facility] 04-19-2020 influenza virus vacc ine, unspecified formulation LIZ DAVID [facility] 04-15-2020 influenza virus vacc ine, unspecified formulation LIZ DAVID [facility] 04-20-2018 influenza virus vacc ine, unspecified formulation LIZ DAVID [facility] 03-24-2018 influenza virus vacc ine, unspecified formulation LIZ DAVID [facility] 05-01-2013 influenza virus vacc ine, unspecified formulation LIZ DAVID [facility] Payers Date Payer Category Payer [facility] er [id number] 2022 Medicare 2022 Unknown [id number] 2022 Unknown [id number] [id number]. [id number] 2021 Medicare [id number] 2019 Unknown [id number] 2.16.840.1.543565.19 1959 Medicare [id number] 1956 Unknown [id number] 2.16.840.1.643331.3.579.2. 593 1956 Unknown [id number] 2.16.840.1.418079.3.579.2. 593 1956 Unknown [id number] 2.16.840.1.220829.3.579.2. 593 1956 Unknown [id number] 2.16.840.1.845816.3.579.2. 593 1956 Unknown [id number] 2.16.840.1.637029.3.579.2. 593 1956 Unknown [id number] 2.16.840.1.617468.3.579.2. 593 1956 Unknown [id number] 2.16.840.1.003377.3.579.2. 593 1956 Unknown [id number] 2.16.840.1.682992.3.579.2. 593 1956 Unknown [id number] 2.16.840.1.877136.3.579.2. 593 1956 Unknown [id number] 2.16.840.1.840718.3.579.2. 593 1956 Unknown [id number] 2.16.840.1.337090.3.579.2. 593 1956 Unknown [id number] 2.16.840.1.645664.3.579.2. 593 1956 Unknown [id number] 2.16.840.1.390575.3.579.2. 593 1956 Unknown [id number] 2.16.840.1.776694.3.579.2. 593 1956 Unknown [id number] 2.16.840.1.404396.3.579.2. 593 1956 Unknown [id number] 2.16.840.1.637188.3.579.2. 593 1956 Unknown [id number] 2.16.840.1.691683.3.579.2. 593 1956 Unknown [id number] 2.16.840.1.505121.3.579.2. 593 1956 Unknown [id number] 2.16.840.1.905117.3.579.2. 593 1956 Unknown [id number] 2.16.840.1.514964.3.579.2. 593 1956 Unknown [id number] 2.16.840.1.739267.3.579.2. 593 1956 Unknown [id number] 2.16.840.1.156567.3.579.2. 593 1956 Unknown [id number] 2.16.840.1.124616.3.579.2. 593 1956 Unknown [id number] 2.16.840.1.445234.3.579.2. 593 1956 Unknown [id number] 2.16.840.1.098316.3.579.2. 593 1956 Unknown [id number] 2.16.840.1.733427.3.579.2. 593 1956 Unknown [id number] 2.16.840.1.130523.3.579.2. 593 1956 Unknown [id number] 2.16.840.1.144369.3.579.2. 593 1956 Unknown [id number] 2.16.840.1.850136.3.579.2. 593 1956 Unknown [id number] 2.16.840.1.131691.3.579.2. 593 1956 Unknown [id number] 2.16.840.1.141632.3.579.2. 593 1956 Unknown [id number] 2.16.840.1.324022.3.579.2. 593 1956 Unknown [id number] 2.16.840.1.410976.3.579.2. 593 1956 Unknown [id number] 2.16.840.1.610698.3.579.2. 593 1956 Unknown [id number] 2.16.840.1.325720.3.579.2. 593 1956 Unknown [id number] 2.16.840.1.109163.3.579.2. 593 1956 Unknown [id number] 2.16.840.1.393758.3.579.2. 593 1956 Unknown [id number] 2.16.840.1.733855.3.579.2. 593 1956 Unknown [id number] 2.16.840.1.057788.3.579.2. 593 1956 Unknown [id number] 2.16.840.1.286158.3.579.2. 593 1956 Unknown [id number] 2.16.840.1.437552.3.579.2. 196 1956 Unknown [id number] 2.16.840.1.365549.3.579.2. 196 1956 Unknown [id number] 2.16.840.1.378395.3.579.2. 727 1956 Unknown [id number] 2.16.840.1.392866.3.579.2. 727 1956 Unknown [id number] 2.16.840.1.330522.3.579.2. 727 1956 Unknown [id number] 2.16.840.1.256741.3.579.2. 1259 1956 Unknown [id number] 2.16.840.1.177745.3.579.2. 1259 1956 Unknown [id number] 2.16.840.1.584644.3.579.2. 1259 Social History Date Type Detail Facility Start: 01-12-2024 End: 01-12-2025 Sex Assigned At [facility] Start: 03-10-2023 End: 06-03-2023 Tobacco smoking status Never smoked tobacco (finding) [facility] Tobacco smoking status Never [facility] Start: 03-10-2023 Tobacco use and exposure Smokeless tobacco non-user [facility] Start: 01-12-2024 End: 01-12-2025 History of Social function [facility] Start: 1955 Sex assigned at Not on file [facility] Functional Status Date Assessment Result Facility 05-27-2024 Functional Status N/A [facility] 11-04-2023 Functional Status N/A [facility] 06-03-2023 Functional Status N/A [facility] Clinical Notes 04-12-2021 to 01-12-2025 Tulio Ruggiero [...] (BMI) of 37.0 to 37.9 in adult ([facility]) Weight loss indicated. Associated Problem(s): Arthritis, gouty [...] (BMI) of 37.0 to 37.9 in adult ([facility]) Weight loss indicated. Type 2 diabetes mellitus with hyperglycemia, without long-term current use of insulin ([facility]) - Primary Reports BS controlled and due for A1C. Stick to ADA diet and limit carbs. Relevant Orders Microalbumin / creatinine, urine ratio Hemoglobin A1c Seasonal allergic rhinitis due to pollen Symptoms controlled with medication and continue. Primary insomnia Sleeping well with medication and continue. documented in this encounter [facility] 10-13-2024 History of Present illness Narrative Associated [...] MG per tablet documented in this encounter [facility] 07-23-2024 Note Procedure: AP view o f the orbits. 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 Comparison: None. Findings: Orbits: No radiopaque foreign body. Bones: No gross acute fracture or aggressive abnormality. IMPRESSION: No radiopaque foreign body of the orbits. Final Dictated by: Jordan Villavicencio MD Dictated DT/TM: 07/23/2024 10:21 am Signed by: Maye MCGUIRE, Jordan Cronin Signed (Electronic Signature): 07/23/2024 10:22 am (If Report Is Signed, Electronically Signed in Other Vendor System) [facility] 07-15-2024 History of Present illness Narrative Associated Problem(s): Dyslipidemia ([facility]) Due for labs. Associated Problem(s): Class 2 [...] Problem List Items Addressed This Visit Dyslipidemia ([facility]) Due for labs. Arthritis, gouty Relevant Medications probenecid (Benemid) 500 MG tablet Class 2 severe obesity due to excess calories with serious comorbidity and body mass index (BMI) of 37.0 to 37.9 in adult ([facility]) Weight down 9 pounds in past year. Continue exercise and diet changes. Type 2 diabetes mellitus with hyperglycemia, without long-term current use of insulin ([facility]) Reports BS controlled and due for A1C. Stick to ADA diet and limit carbs. Polyneuropathy due to type 2 diabetes mellitus ([facility]) Neuropathy stable and continue neurontin. Annual physical [...] Recommend routine PAT. documented in this encounter [facility] 05-27-2024 Hospital Discharge instructions Patient Education 05/27/2024 09:56:36 Kidney Stones, Fzkg-ft-Mxxr Kidney Stones Kidney stones are rock-like masses [...] Follow these instructions at home: Medicines Take hhiq-lij-xzmpmzp and prescription medicines only as told by [...] provider. Document Revised: 02/21/2023 Document Reviewed: 02/21/2023 [employer] Patient Education 2023 [employer]. Follow Up Care 11/04/2023 09:32:44 With:LIZ HERNANDEZ PA-C, NICKI Address: When:1 year [facility] 05-27-2024 Note Patient Education Urology Kidney [...] these instructions at home: Medicines ??? Take jmau-bmv-hdkqioh and prescription medicines only as told by [...] provider. Document Revised: 02/21/2023 Document Reviewed: 02/21/2023 Elsevier Patient Education ? 2023 [employer] [facility] 11-04-2023 Hospital Discharge instructions Patient Education [...] Follow these instructions at home: Medicines Take emdv-xkb-ewdpobc and prescription medicines only as told by [...] provider. Document Revised: 09/26/2021 Document Reviewed: 09/26/2021 [employer] Patient Education 2022 [employer]. Follow Up Care 06/03/2023 10:28:55 With:LIZ HERNANDEZ PA-C, URL Address: [address] [place] [address] [id number] When: Unknown [facility] 06-03-2023 Hospital Discharge instructions Patient Education [...] treatment? Where to find more information [employer]: www.cancer.org [employer] [employer]: www.auanet.org Contact a health care [...] provider. Document Revised: 12/24/2021 Document Reviewed: 12/24/2021 [employer] Patient Education 2022 [employer]. Follow Up Care 05/29/2022 11:47:27 With:DAVID IVAN, LIZ Juarez, URL Address: [address] [place] [address] [phone] When: Unknown Comments:6 mos w/ PSA [facility] 12-03-2022 Note PROCEDURE: XR FOOT L [...] authenticated by: ELIN KENNY Date: 2022-12-03 09:57 [facility] 11-12-2022 Note PROCEDURE: XR FOOT [...] authenticated by: ZAFAR FERRER Date: 2022-11-12 13:59 [facility] 10-22-2022 Note PROCEDURE: XR FOOT [...] by: ELIN KENNY Date: 2022-10-22 07:48 [facility] 10-22-2022 Note PROCEDURE: XR FOOT L T 2V HISTORY: Pain COMPARISON: XR foot left 10/21/2022 FINDINGS: BONES:Multiple intraoperative spot fluoroscopic images demonstrate mechanical fusion of the first metatarsophalangeal joint and resection of head of first proximal phalanx. IMPRESSION: 1. Surgical changes of left first toe as detailed above. Electronically authenticated by: ELIN KENNY Date: 2022-10-22 07:46 [facility] 07-31-2022 Note Currently stable [facility] 07-31-2022 Note Hypertension is well controlled 114/64 Continue lisinopril 5 mg Recent CR elevated 1.59- his cr typically has been 1.2-1.4 - He has been on antibiotics for Lt foot infection- DFU with wound care. [facility] 07-31-2022 Note Lipid abnormalities are currently well controlled with lipitor 20 mg- LDL currently 58.6 on labs 07/26/2022 Liver function 04/2022 were normal [facility] 07-31-2022 Note UTP CARDIOLOGY PROGR ESS [...] RTC 1 year or earlier if needed [facility] 07-31-2022 Note Patient here for 6 [...] All other systems reviewed and are negative. [facility] 07-31-2022 Note CONSULTATION PROCEDURE DATE: 07/31/2022 [...] the clinic in three months' time. [facility] 07-25-2022 Note CONSULTATION CONSULTATION DATE: 07/25/2022 HISTORY OF PRESENT ILLNESS: This is a 66-year-old gentleman who presents to the Pain Clinic today with increased lower back pain. The patient does have chronic bilateral knee pain, but he states those are doing quite well. He did receive a left knee steroid injection in April. The patient just recently returned from a [place] vacation, where he visited multiple [place] mayes and had a lot of increased [...] and will be contacted upon approval. [facility] 07-24-2022 Note PROCEDURE: XR FOOT [...] by: ELIN KENNY Date: 2022-07-24 10:21 [facility] 06-10-2022 Note PROCEDURE: XR KNEE L T 4V or > HISTORY: Pain in left knee ; chronic left knee pain COMPARISON: XR knee bilateral 05/31/2021 FINDINGS: BONES:Marked narrowing of the medial joint space with suspected ergg-sq-lovg articulation. Moderate-marked narrowing of the lateral compartment. Mild narrowing of anterior compartment. Small periarticular osteophytes involving the margins of all 3 compartments. No fracture or dislocation. SOFT TISSUES:No visible soft tissue swelling. EFFUSION:Small joint effusion. OTHER: Negative. IMPRESSION: 1. Marked degenerative joint disease. Stable to minimally progressed. Electronically authenticated by: ELIN KENNY Date: 2022-06-10 19:35 [facility] 05-23-2022 Evaluation note Encounter Date [...] Pain in left knee (ICD-10 - M25.562) [employer] Other 10-11-2022 NoteCONSULTATION CONSULTATION DATE: 04/23/2022 CHIEF [...] the time being. CC: Felisa Berrios M.D.[facility] [id number] NoteCONSULTATION CONSULTATION DATE: 04/04/2022 HISTORY OF PRESENT [...] indicated. Patient agreed with plan of care.[facility] [id number] Note CONSULTATION CONSULTATION DATE: 02/14/2022 HISTORY OF [...] time unless otherwise indicated. Patient acknowledges understanding.[facility] [id number] NoteCONSULTATION PROCEDURE DATE: 02/14/2022 PREOPERATIVE DIAGNOSIS: Bilateral [...] will be followed up in the office.[facility] [id number] Evaluation note* Encounter Date Diagnosis Assessment Notes [...] Pain in left knee (ICD-10 - M25.562) [employer] Other 09-30-2021 Evaluation note* Encounter Date Diagnosis Assessment Notes Treatment Notes Treatment Clinical Notes Mar, Liver hemangioma (ICD-10 - D18.03) Mar, HODGES (nonalcoholic steatohepatitis) (ICD-10 - K75.81) [employer] Other Evaluation + Plan note Future Appointments Appointment Date:11/04/2023 08:30:00 AM Scheduled Provider:LIZ HERNANDEZ PA-C Location:[facility] Appointment Type:URO Office Visit Diagnostic Tests Pending * PSA Total 06/03/23 [facility] evaluation + Plan note Future Appointments Appointment Date:05/25/2024 08:40:00 AM Scheduled Provider:LIZ HERNANDEZ PA-C Location:[facility] Appointment Type:URO Office Visit [facility] [employer] evaluation note* Diagnosis Polyneuropathy due to type [...] (BMI) of 37.0 to 37.9 in adult ([facility]) Dyslipidemia ([facility]) Other and unspecified hyperlipidemia documented in this encounter [facility]* Diagnosis Annual physical exam- Primary Routine general medical examination at a health care facility Type 2 diabetes mellitus with hyperglycemia, without long-term current use of insulin ([facility]) Type 2 diabetes mellitus with hyperglycemia, without long-term current use of insulin ([facility])- Primary Arthritis, gouty Gouty arthropathy, unspecified Seasonal allergic rhinitis due to pollen DDD (degenerative disc disease), lumbar Degeneration of lumbar or lumbosacral intervertebral disc Polyneuropathy due to type 2 diabetes mellitus ([facility]) Primary insomnia Persistent disorder of initiating or maintaining sleep Annual physical exam- Primary Routine general medical examination at a health care facility Encounter for preoperative assessment Type 2 diabetes mellitus with hyperglycemia, without long-term current use of insulin ([facility]) Arthritis, gouty Gouty arthropathy, unspecified Polyneuropathy due to type 2 diabetes mellitus ([facility]) Class 2 severe obesity due to excess calories with serious comorbidity and body mass index (BMI) of 37.0 to 37.9 in adult ([facility]) Dyslipidemia ([facility]) Other and unspecified hyperlipidemia Type 2 diabetes mellitus with hyperglycemia, without long-term current use of insulin ([facility])- Primary Dyslipidemia ([facility]) Other and unspecified hyperlipidemia Class 2 severe obesity due to excess calories with serious comorbidity and body mass index (BMI) of 37.0 to 37.9 in adult ([facility]) Encounter for long-term current use of medication Screening PSA (prostate specific antigen) Special screening for malignant neoplasm of prostate documented in this encounter [facility]* Diagnosis Annual physical exam- Primary Routine general medical examination at a health care facility Type 2 diabetes mellitus with hyperglycemia, without long-term current use of insulin ([facility]) Type 2 diabetes mellitus with hyperglycemia, without long-term current use of insulin ([facility])- Primary Arthritis, gouty Gouty arthropathy, unspecified Seasonal allergic rhinitis due to pollen DDD (degenerative disc disease), lumbar Degeneration of lumbar or lumbosacral intervertebral disc Polyneuropathy due to type 2 diabetes mellitus ([facility]) Primary insomnia Persistent disorder of initiating or maintaining sleep Annual physical exam- Primary Routine general medical examination at a health [facility] facility Encounter for preoperative assessment Type 2 diabetes mellitus with hyperglycemia, without long-term current use of insulin ([facility]) Arthritis, gouty Gouty arthropathy, unspecified Polyneuropathy due to type 2 diabetes mellitus ([facility]) Class 2 severe obesity due to excess calories with serious comorbidity and body mass index (BMI) of 37.0 to 37.9 in adult ([facility]) Dyslipidemia ([facility]) Other and unspecified hyperlipidemia Morbid obesity ([facility]) Morbid obesity Polyneuropathy due to type 2 diabetes mellitus ([facility]) Type 2 diabetes mellitus with hyperglycemia, without long-term current use of insulin ([facility]) documented [facility]* Diagnosis Annual physical exam- Primary Routine general medical examination at a [facility] facility Type 2 diabetes mellitus with hyperglycemia, without long-term current use of insulin ([facility]) Type 2 diabetes mellitus with hyperglycemia, without long-term current use of insulin ([facility])- Primary Arthritis, gouty Gouty arthropathy, unspecified Seasonal allergic rhinitis due to pollen DDD (degenerative disc disease), lumbar Degeneration of lumbar or lumbosacral intervertebral disc Polyneuropathy due to type 2 diabetes mellitus ([facility]) Primary insomnia Persistent disorder of initiating or maintaining sleep Annual physical exam- Primary Routine general medical examination at a health care facility Encounter for preoperative assessment Type 2 diabetes mellitus with hyperglycemia, without long-term current use of insulin ([facility]) Arthritis, gouty Gouty arthropathy, unspecified Polyneuropathy due to type 2 diabetes mellitus ([facility]) Class 2 severe obesity due to excess calories with serious comorbidity and body mass index (BMI) of 37.0 to 37.9 in adult ([facility]) Dyslipidemia ([facility]) Other and unspecified hyperlipidemia Abscess of abdominal wall- Primary Cellulitis and abscess of trunk documented in this encounter [facility]* Diagnosis Annual physical exam- Primary Routine general medical examination at a health care facility Type 2 diabetes mellitus with hyperglycemia, without long-term current use of insulin ([facility]) Type 2 diabetes mellitus with hyperglycemia, without long-term current use of insulin ([facility])- Primary Arthritis, gouty Gouty arthropathy, unspecified Seasonal allergic rhinitis due to pollen DDD (degenerative disc disease), lumbar Degeneration of lumbar or lumbosacral intervertebral disc Polyneuropathy due to type 2 diabetes mellitus ([facility]) Primary insomnia Persistent disorder of initiating or maintaining sleep Annual physical exam- Primary Routine general medical [facility] Encounter for preoperative assessment Type 2 diabetes mellitus with hyperglycemia, without long-term current use of insulin ([facility]) Arthritis, gouty Gouty arthropathy, unspecified Polyneuropathy due to type 2 diabetes mellitus ([facility]) Class 2 severe obesity due to excess calories with serious comorbidity and body mass index (BMI) of 37.0 to 37.9 in adult ([facility]) Dyslipidemia ([facility]) Other and unspecified hyperlipidemia Abscess of abdominal wall- Primary Cellulitis and abscess of trunk Annual physical exam- Primary Routine general medical examination at a [facility] care facility Morbid obesity ([facility]) Morbid obesity Polyneuropathy due to type 2 diabetes mellitus ([facility]) Type 2 diabetes mellitus with hyperglycemia, without long-term current use of insulin ([facility]) Arthritis, gouty Gouty arthropathy, unspecified documented in this encounter [facility]* Diagnosis Annual physical exam- Primary Routine general medical examination at a [facility] Type 2 diabetes mellitus with hyperglycemia, without long-term current use of insulin ([facility]) Type 2 diabetes mellitus with hyperglycemia, without long-term current use of insulin ([facility])- Primary Arthritis, gouty Gouty arthropathy, unspecified Seasonal allergic rhinitis due to pollen DDD (degenerative disc disease), lumbar Degeneration of lumbar or lumbosacral intervertebral disc Polyneuropathy due to type 2 diabetes mellitus ([facility]) Primary insomnia Persistent disorder of initiating or maintaining sleep Annual physical exam- Primary Routine general medical examination at a [facility] facility Encounter for preoperative assessment Type 2 diabetes mellitus with hyperglycemia, without long-term current use of insulin ([facility]) Arthritis, gouty Gouty arthropathy, unspecified Polyneuropathy due to type 2 diabetes mellitus ([facility]) Class 2 severe obesity due to excess calories with serious comorbidity and body mass index (BMI) of 37.0 to 37.9 in adult ([facility]) Dyslipidemia ([facility]) Other and unspecified hyperlipidemia Abscess of abdominal wall- Primary Cellulitis and abscess of trunk Male hypogonadism Other testicular hypofunction documented in this encounter [facility]* Diagnosis Annual physical exam- Primary Routine general medical examination at a [facility] facility Type 2 diabetes mellitus with hyperglycemia, without long-term current use of insulin ([facility]) Type 2 diabetes mellitus with hyperglycemia, without long-term current use of insulin ([facility])- Primary Arthritis, gouty Gouty arthropathy, unspecified Seasonal [...] (BMI) of 37.0 to 37.9 in adult ([facility]) Dyslipidemia ([facility]) Other and unspecified hyperlipidemia Abscess of abdominal wall- Primary Cellulitis and abscess of trunk Polyneuropathy due to type 2 diabetes mellitus ([facility]) documented in this encounter [facility]* Diagnosis Annual physical exam- Primary Routine general medical examination at a health care facility Type 2 diabetes mellitus with hyperglycemia, without long-term current use of insulin (HCC) Type 2 diabetes mellitus with hyperglycemia, without [...] without long-term current use of insulin (HCC) Arthritis, gouty Gouty arthropathy, unspecified 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) Class 2 severe obesity due to excess calories with serious comorbidity and body mass index (BMI) of 37.0 to 37.9 in adult ([facility]) Dyslipidemia Other and unspecified hyperlipidemia Type 2 [...] (BMI) of 37.0 to 37.9 in adult (CMS-HCC) Type 2 diabetes mellitus with diabetic chronic kidney disease (HCC) Chronic kidney disease, stage 3a (CMS-HCC) documented in this encounter [facility] Narrative - Reported* Type Description Date Medical History DM II Medical History HTN Medical History hyperlipidemia Medical History gout Surgical History knee surgery Surgical History tonsillectomy Surgical History vasectomy Surgical History sinus surgery Surgical History back injections Hospitalization History SEE ABOVE SURGICAL HX [employer] Other Hospital course Narrative No data available for this section [facility] progress note No data available for this section [facility] Summary Purpose Family History No Family [...] section and content) DATE CREATED AUTHOR 03/29/2021 [facility] DATE CREATED AUTHOR AUTHOR'S ORGANIZ ATION 08/06/2022 [facility] DATE CREATED AUTHOR AUTHOR'S ORGANIZ ATION 12/20/2022 [facility] DATE CREATED AUTHOR AUTHOR'S ORGANIZ ATION 07/28/2024 [facility] DATE CREATED AUTHOR AUTHOR'S ORGANIZ ATION 08/01/2024 [facility] DATE CREATED AUTHOR AUTHOR'S ORGANIZ ATION 01/14/2025 [facility] dical Specialists EPIC REASON FOR VISIT (unrecogniz ed section and content) Reason Comments Med Refill Reason Onset Date Comments Med Refill 04/06/2024 Reason Comments Follow-up 6m Reason Comments Follow-up Cyst on stomach/ pop ped Reason Onset Date Comments Med Refill 11/08/2024 Reason Onset Date Comments Med Refill 12/06/2024 Patient Care team informatio n (unrecognized section and content) Flooring Professional Relationship Specialty Start Date End Date Tulio Ruggiero MD [address] [place] [phone] PCP - [employer] 04/13/23 Tulio Ruggiero MD [address] [place] [phone] PCP - [facility] Medicine 01/12/24 Flooring Professional Relationship Specialty Start Date End Date Tulio Rgugiero MD [address] [place] [phone] PCP - [facility] [employer] 04/13/23 Tulio Ruggiero MD [address] [place] [phone] PCP [facility] Medicine 01/12/24 Flooring Professional Relationship Specialty Start Date End Date Tulio Ruggiero MD [address] [place] [phone] PCP - [employer] 04/13/23 Tulio Ruggiero MD [address] [place] [phone] PCP [facility] Medicine 01/12/24 Flooring Professional Relationship Specialty Start Date End Date Tulio Ruggiero MD [address] [place] [phone] PCP - [employer] 04/13/23 Tulio Ruggiero MD [address] [place] [phone] PCP - General Family Medicine 01/12/24 Flooring Professional Relationship Specialty Start Date End Date Tulio Ruggiero MD [address] [place] [phone] PCP - [employer] 04/13/23 Tulio Ruggiero MD [address] [place] [phone] PCP - General [facility] Medicine 01/12/24 Flooring Professional Relationship Specialty Start Date End Date Tulio Ruggiero MD [address] [place] [phone] PCP - [employer] 04/13/23 Tulio Ruggiero MD [address] [place] [phone] PCP - General Family Medicine 01/12/24 Flooring Professional Relationship Specialty Start Date End Date Tulio Ruggiero MD [address] [place] [phone] PCP - [employer] 04/13/23 Tulio Ruggiero MD [address] [place] [phone] PCP - General Family Medicine 01/12/24 Flooring Professional Relationship Specialty Start Date End Date Tulio Ruggiero MD [address] [place] [phone] PCP - General Family Medicine 01/12/24 Flooring Professional Relationship Specialty Start Date End Date Tulio Ruggiero MD [address] [place] [address] PCP - General Family Medicine 01/12/24 Flooring Professional Relationship Specialty Start Date End Date Tulio Ruggiero MD [address] [place] [address] PCP - General Family Medicine 01/12/24 Flooring Professional Relationship Specialty Start Date End Date Tulio Ruggiero MD [address] [place] [phone] PCP - General Family Medicine 01/12/24 Flooring Professional Relationship Specialty Start Date End Date Tulio Ruggiero MD [address] [place] [phone] PCP - General Family Medicine 01/12/24 Flooring Professional Relationship Specialty Start Date End Date Tulio Ruggiero MD [address] [place] [address] PCP - General Family Medicine 01/12/24 Flooring Professional Relationship Specialty Start Date End Date Tulio Ruggiero MD [address] [place] [address] PCP - General Family Medicine 01/12/24 Flooring Professional Relationship Specialty Start Date End Date Tulio Ruggiero MD [address] [place] [address] PCP - General Family Medicine 01/12/24 FOR [...] BE BASED ON THE PRIMARY CLINICAL RECORDS. [facility]. provides no warranty or guarantee of the accuracy or completeness of information in this document.
--- NOTE | 2025-01-26 08:34 | PM.CN ---
Consult Note: HPI Data of Consult Patient: known to practice within the last 3 years Consult date: 01/26/25 Requesting Physician: Gracie Chaudhry NP Primary Care Provider: Tulio Madrid MD Consult Narrative Reason for consult: f/u Narrative: Warner Caraballo a pleasant 69 year old male presents for evaluation of chronic low back pain. Today rating pain 1/10 in low back, pain increasing to 5/10 with standing, walking, pushing, pulling, transitioning, bending, activity. Pain improved with lying and heat. Finds benefit to diclofenac, gabapentin, flexeril, and tramadol without side effects. pain has been well controlled since last visit. cc:: CC: Gracie Chaudhry NP Review of Systems ROS Status of ROS 10 or more systems reviewed and unremarkable except as noted in history and below Musculoskeletal Reports: back pain PFSH PFSH Medical History Insomnia �G47.00 - Insomnia, unspecified (ICD-10) Seasonal allergic rhinitis �J30.2 - Other seasonal allergic rhinitis (ICD-10) Polyneuropathy due to type 2 diabetes mellitus �E11.42 - Type 2 diabetes mellitus with diabetic polyneuropathy (ICD-10) Nonalcoholic fatty liver �K76.0 - Fatty (change of) liver, not elsewhere classified (ICD-10) Hypogonadism Degenerative disc disease, lumbar �M51.369 - Other intervertebral disc degeneration, lumbar region without mention of lumbar back pain or lower extremity pain (ICD-10) Pseudophakia �Z96.1 - Presence of intraocular lens (ICD-10) Cataract �H26.9 - Unspecified cataract (ICD-10) Lumbar spondylosis �M47.816 - Spondylosis without myelopathy or radiculopathy, lumbar region (ICD-10) Diabetes mellitus �E11.9 - Type 2 diabetes mellitus without complications (ICD-10) Knee pain �M25.569 - Pain in unspecified knee (ICD-10) Back pain �M54.9 - Dorsalgia, unspecified (ICD-10) Hypertension �I10 - Essential (primary) hypertension (ICD-10) Gout �M10.9 - Gout, unspecified (ICD-10) Sleep apnea �G47.30 - Sleep apnea, unspecified (ICD-10) Hyperlipidemia �E78.5 - Hyperlipidemia, unspecified (ICD-10) Myofascial pain �M79.18 - Myalgia, other site (ICD-10) Lumbar stenosis with neurogenic claudication �M48.062 - Spinal stenosis, lumbar region with neurogenic claudication (ICD-10) Bilateral primary osteoarthritis of knee �M17.0 - Bilateral primary osteoarthritis of knee (ICD-10) Pulmonary embolism (07/2020) �I26.99 - Other pulmonary embolism without acute cor pulmonale (ICD-10) COVID-19 (07/2020) �U07.1 - COVID-19 (ICD-10) Kidney stones �N20.0 - Calculus of kidney (ICD-10) Knee osteoarthritis �M17.9 - Osteoarthritis of knee, unspecified (ICD-10) Fusion, toes �Q70.20 - Fused toes, unspecified foot (ICD-10) Surgical History H/O sinus surgery �Z98.890 - Other specified postprocedural states (ICD-10) History of vasectomy �Z98.52 - Vasectomy status (ICD-10) S/P cataract extraction and insertion of intraocular lens �Z98.49 - Cataract extraction status, unspecified eye (ICD-10) �Z96.1 - Presence of intraocular lens (ICD-10) History of radiofrequency ablation (RFA) of nerve of lumbar spine �Z98.890 - Other specified postprocedural states (ICD-10) S/P epidural steroid injection �Z92.241 - Personal history of systemic steroid therapy (ICD-10) History of foot surgery �Z98.890 - Other specified postprocedural states (ICD-10) History of tonsillectomy and adenoidectomy �Z90.89 - Acquired absence of other organs (ICD-10) S/P right knee arthroscopy �Z98.890 - Other specified postprocedural states (ICD-10) S/P left knee arthroscopy �Z98.890 - Other specified postprocedural states (ICD-10) Family History Other Family history of diabetes mellitus Family history of hypertension Family history of prostate cancer Family history of stroke Social History Within the past year, how often did you have a drink containing alcohol: monthly or less Smoking status: Never smoker Non-prescribed substance use: denies use Previous occupational history: RETIRED Highest level of school completed/degree received: high school graduate Meds Home Medications and Allergies Home Medications �Medication �Instructions �Recorded �Confirmed �Type acetaminophen 500 mg tablet 1,000 mg PO Q6H PRN pain 01/06/23 07/20/24 History (Acetaminophen Extra Strength) ascorbic acid (vitamin C) 500 mg 500 mg PO BID 01/06/23 08/23/24 History tablet (C-500) atorvastatin 20 mg tablet 20 mg PO DAILY 01/06/23 08/23/24 History cholecalciferol (vitamin D3) 25 1,000 unit PO BID 01/06/23 08/23/24 History mcg (1,000 unit) tablet (Vitamin D3) colchicine 0.6 mg tablet 0.6 mg PO TID 01/06/23 08/23/24 History diclofenac sodium 50 mg 50 mg PO BID 01/06/23 08/23/24 History tablet,delayed release febuxostat 40 mg tablet 40 mg PO DAILY 01/06/23 08/23/24 History gabapentin 300 mg capsule 300 mg PO TID 01/06/23 08/23/24 History lisinopril 5 mg tablet 5 mg PO DAILY 01/06/23 08/23/24 History metformin 500 mg tablet,extended 500 mg PO DAILY 01/06/23 08/23/24 History release 24 hr probenecid 500 mg tablet 500 mg PO BID 01/06/23 08/23/24 History tizanidine 4 mg tablet 8 mg PO .QHS PRN muscle spasticity 01/06/23 08/23/24 History naloxone 4 mg/actuation nasal 4 mg intranasal Q2M PRN opioid 06/16/24 07/20/24 Rx spray (Narcan) overdose #1 ea tramadol 50 mg tablet 50 mg PO BID PRN pain #60 tabs 07/19/24 08/23/24 Rx allopurinol 300 mg tablet 300 mg PO DAILY 07/20/24 08/23/24 History baclofen 20 mg tablet 20 mg PO QPM 07/20/24 08/23/24 History diazepam 10 mg tablet 10 mg PO TID PRN anxiety 07/20/24 08/23/24 History semaglutide 2 mg/dose (8 mg/3 mL) 2 mg subcut QWEEK 07/20/24 08/23/24 History subcutaneous pen injector (Ozempic) tadalafil 10 mg tablet 20 mg PO DAILY PRN sexual activity 07/20/24 08/23/24 History testosterone cypionate 200 mg/mL 200 mg IM Q14D 07/20/24 07/20/24 History intramuscular oil cyclobenzaprine 10 mg tablet See Rx Instructions .Route 08/09/24 08/23/24 Rx .COMPLEX PRN muscle spasm #30 tabs trazodone 50 mg tablet 50 mg PO .QHS 08/23/24 08/23/24 History cyclobenzaprine 10 mg tablet 10 mg PO BID PRN muscle spasm #180 09/13/24 Rx tabs tramadol 50 mg tablet 50 mg PO BID PRN pain #60 tabs 09/30/24 Rx tramadol 50 mg tablet 50 mg PO BID PRN pain #60 tabs 11/01/24 Rx diclofenac sodium 50 mg 50 mg PO BID #60 tabs 11/25/24 Rx tablet,delayed release tramadol 50 mg tablet 50 mg PO BID PRN pain #60 tabs 12/16/24 Rx diclofenac sodium 50 mg 50 mg PO BID PRN pain #60 tabs 12/27/24 Rx tablet,delayed release tramadol 50 mg tablet 50 mg PO BID PRN pain #60 tabs 01/19/25 Rx Allergies Allergy/AdvReac Type Severity Reaction Status Date / Time oxycodone AdvReac hyperactivi Verified 07/20/24 09:24 ty Exam Constitutional Documenting provider has reviewed patient's vital signs: yes Common normals: no apparent distress, oriented x3, healthy appearing, alert and well nourished General appearance: cooperative [facility] Common normals: normocephalic, hearing grossly normal bilaterally and moist oral mucous membranes Head and scalp: normocephalic Eye Common normals: PERRL Pupil: PERRL Neck & C-Spine Common normals: full ROM General: normal visual inspection Chest Common normals: inspection of chest normal Respiratory Common normals: normal respiratory effort, no retractions and no use of accessory muscles Back & Pelvis Lumbar spine/lower back: ROM limited, pain with ROM and straight leg raise negative bilaterally; no lumbar spinal tenderness and no paraspinal muscle tenderness Sacroiliac joints: SI joints normal Other: mildly positive facet loading Extremity Common normals: normal to inspection and full ROM Neuro Common normals: oriented x3 and gait normal Sensorium/orientation: alert Psych Common normals: mental status grossly normal, thought process normal, cooperative, affect normal, speech normal and activity/motor behavior normal Speech: normal speech Thought process: normal thought process Results Additional Findings Additional findings: If on a controlled substance or opioids, I have checked an [place] report on this patient and there are no aberrancies noted in the prescribing history.��If on a controlled substance or opioid a drug screen was completed and reviewed within the last year, and if there has not been a drug screen completed we ordered one today to monitor higher risk, state monitored pain medication use. As part of providing excellent, safe, comprehensive care, the following was completed at our patient's visit: 1. A medication reconciliation and review to ensure accurate knowledge of current/active medications, including asking our patients to inform us about any [id number] medications or herbal remedies/nutritional supplements/alternative remedies. 2. A review to specifically ensure our patients have had annual screening for screening for depression, screening for tobacco use, and screening for unhealthy alcohol use. For concerning screenings had a discussion with the patient, provided patient education, and recommended follow-up with primary care provider when appropriate. If patient noted with a risk of falling, they received education on strength, gait, and balance training to prevent future risk of falling. Portions of this note may have been carried over from the previous visit and updated as appropriate. Please note this office utilizes paper charting in addition to the electronic medical record. A list of current medications, vitals, and PMH is available there as the clinical staff outside of myself do not have access to [employer] charting during the clinic day operations. As part of providing quality comprehensive care the current medications, vitals, and PMH were reviewed in the paper chart. Assessment and Plan Assessment and Plan (1) Lumbar stenosis with neurogenic claudication: (2) Lumbar spondylosis: (3) Myalgia, other site: (4) Chronic use of opiate for therapeutic purpose: Assessment and Plan: I feel these medications are improving the patient's quality of life and allow them to tolerate activities of daily living as well as participate in recreational activity.� The patient does not report intolerable side effects. The patient is NOT opioid naive and non-pharmacologic and non-opioid treatment has failed to significantly relieve the patient's pain and improve functionality. The patient has a diagnosis that is related to a somatic or visceral pain etiology. � �� I reviewed with the patient the potential risks and side effects with the use of� opioid medications including but not limited to respiratory depression,� sedation, and even . Within the last 12 months I have verified the patient has access to naloxone should� these effects occur. The patient was advised to let� their family know they had Naloxone in case they would need to administer� the medication. I advised the patient to avoid the use of any other� sedation substances including alcohol, THC, and benzodiazepines while� taking opioid medications due to the risk of compounding side effects and� detrimental outcomes. within the last 12 months I have reviewed the [employer], pain treatment agreement and urine drug screen.� �� A drug screen was completed within the last year, and no aberrancies were noted regarding their use of controlled substances. The patient understands they are subject to the terms and conditions of the pain contract that they have signed. � �� I have checked an [place] report on this patient today and there are no aberrancies noted in the prescribing history.� Plan 69 year old male with chronic low back pain and generalized OA. has failed to benefit from > 6 weeks of HEP, heat, ice, tylenol, nsaids. continue TENS PRN. continue HEP as tolerated. pain well controlled. continue current medications, risks vs benefits reviewed. f/u 3 months, sooner if needed
== END 2025-01-26 08:14 | disposition home or self-care (01) ==
LOC: PM 08:14
PROVIDERS: PCP Family Medicine; Visit Provider Nurse Practitioner
DX: M48.062 Spinal stenosis, lumbar region with neurogenic claudication (principal); M47.816 Spondylosis without myelopathy or radiculopathy, lumbar region; M79.18 Myalgia, other site; Z79.891 Long term (current) use of opiate analgesic
CPT/HCPCS: G0463

== ENCOUNTER 2025-05-04 07:53 | Outpatient (OUT) | payer MEDICARE, OTHER, SELFPAY ==
--- OUTSIDE RECORDS SUMMARY | 2024-07-27 05:00 | XMS_ITS ---
Author Organization [facility] in [place] Address [address] [place] [address] Care Team Providers Care Water Tester Name Role Phone None, Unknown or Primary Care Provider Unavailab marylou NealevanJames [phone] REASON FOR VISIT -6 Month Follow Up- Encounters Encounter Location Date Provider Diagnosis [facility] (PODIATRY) [address] [place] [address] [place] [address] 07/27/2024 James Raya Left foot pain M79.672 Assessments Encounter Date Diagnosis (ICD Code) Assessment Notes Treatment Notes Treatment Clinical Notes Section Notes 07/27/2024 Left foot pain (ICD-10 - M79.672 ) Plan Of Treatment Pending Test Test Name Order Date XR Foot LT (3 views) * 07/27/2024 Progress Notes * Warner LOCKE CDOB: [birth year] (69 yo M)Acc No.[id number]:07/27/2024 UNLOCKED PROGRESS NOTE Follow Up Patient: Etelvina BOND Warner Farrar :?James Raya DPVirgilio, MSDOB:1955???Age: 68 Y???Sex:MaleDate:07/27/2024Phone:[phone]:JARETH DUNCAN [id number]:Unknown or None Subjective: * Chief Complaints: * 1 . -6 Month Follow Up-. * Medical History: Objective: * Vitals: Assessment: * Assessment: 1.?Left foot pain - M79.672??? Plan: * Treatment: ?Imaging: XR Foot LT (3 views) * * * Electronic signature of James Raya DPM on 05/04/2025 at 07:56 AM EDTSign off status: PendingVisit Status:?CANC (Cancelled) * Provider: Supriya Raya DPM, MS Date: 0 07/27/2024 Generated for Printing/Faxing/eTransmitting on:?05/04/2025 07:56 AM EDT
--- OUTSIDE RECORDS SUMMARY | 2024-08-23 10:00 | XMS_ITS ---
Author Organization [facility] Address [address] [place] [address] Care Team Providers Care Purse Framer Name Role Phone Tulio Madrid Primary Care Provider Daniele Ruffin Unavailable [phone] REASON FOR VISIT 1ST POST OP LEFT TKA 08/09 Problems Problem Type SNOMED Code ICD Code Onset Dates Problem Status W/U Status Risk Notes Problem [id number] Aftercare following joint re placement surgery (Z47.1) [id number] of left artificial knee joint (Z96.652)Activeconfirmed Encounters Encounter Location Date Provider Diagnosis [facility] Office [address] [place] [address] [place] [address] 08/23/2024 Daniele Valencia Aftercare following joint replacement [...] Date SCC- KNEE 2 VIEW LEFT - 44483 08/23/2024 Progress Notes * CARLOS LOCKE CDOB: [birth year] (69 yo M)Acc No.[id number]:08/23/2024 Progress Notes Patient: Etelvina CARLOS BOND :?NATHALY Tena:1955???Age:69 Y ???Sex:MaleDate:08/23/2024Phone:[phone]:[address] [place], [id number]:Tulio Madrid Subjective: * Chief Complaints: * 1 . 1ST POST OP LEFT TKA 08/09. * Medical History: Objective: * Vitals: Assessment: * Assessment: 1.?Aftercare following joint replacement surgery - Z47.1 (Primary)???2.?Presence of left artificial knee joint - Z96.652??? Plan: * Treatment: ?Imaging: SCC- KNEE 2 VIEW LEFT - 710004.?Presence of left artificial knee joint?Imaging: SCC- KNEE 2 VIEW LEFT - 08242 Forms: * Images: * Electronic signature of Daniele Valencia DO on 05/04/2025 at 07:57 AM EDTSign off status: Pending * Provider: Noa Valencia DO Date: 0 08/23/2024 Generated for Printing/Faxing/eTransmitting on:?05/04/2025 07:57 AM EDT
--- OUTSIDE RECORDS SUMMARY | 2024-11-22 09:10 | XMS_ITS ---
Author Organization [facility] Address [address] [place] [address] Care Team Providers Care Resourcing Consultant Name Role Phone Tulio Madrid Primary Care Provider Daniele Ruffin Unavailable [phone] REASON FOR VISIT LEFT KNEE RECHECK DOS 02.10 Encounters Encounter Location Date Provider Diagnosis [facility] Office [address] [place] [address] [place] [address] 11/22/2024 Daniele Valencia Aftercare following joint replacement surgery Z47.1 Assessments Encounter Date Diagnosis (ICD Code) Assessment Notes Treatment Notes Treatment Clinical Notes Section Notes 11/22/2024 Aftercare following joint replac ement surgery (ICD-10 - Z47.1) Plan Of Treatment Pending Test Test Name Order Date SCC- KNEE 2 VIEW LEFT - 68550 11/22/2024 Progress Notes * CARLOS LOCKE CDOB: [birth year] (69 yo M)Acc No.[id number]:11/22/2024 Patient:?CARLOS LOCKE :?Daniele Valencia, DODOB:1955???Age:69 Y ???Sex:MaleDate:11/22/2024Phone:[phone]:JARETH DUNCAN [id number]:Tulio Madrid Subjective: * Chief Complaints: * 1 . LEFT KNEE RECHECK DOS 02.10. * Medical History: Objective: * Vitals: Assessment: * Assessment: 1.?Aftercare following joint replacement surgery - Z47.1 (Primary)??? Plan: * Treatment: ?Imaging: SCC- KNEE 2 VIEW LEFT - 22449 * Procedure Codes: 7 3560 X-ray Knee, 2 view Forms: * Images: * Electronic signature of Daniele Valencia DO on 05/04/2025 at 07:56 AM EDTSign off status: Pending * Provider: Noa Valencia DO Date: 0 11/22/2024 Generated for Printing/Faxing/eTransmitting on:?05/04/2025 07:56 AM EDT
--- OUTSIDE RECORDS SUMMARY | 2025-05-04 07:56 | XMS_ITS | Clinical Summary ---
Author Organization [facility] Address [address] [place] [address] Care Team Providers Care Health Aide Name Role Phone Tulio Madrid MD Primary Care Provider [phone] Allergies Active AllergyReactionsCriticalityNoted UfkmYvnvdbqpZfzpelqjlUewcw59/18/2023 Oxycodone-Sjraprqezricm58/18/2023 Medications MedicationSigDispense QuantityRefillsLast FilledStart DateEnd DateStatus atorvastatin (Lipitor) 20 mg tablet atorvastatin 20 mg tablet TAKE 1 TABLET BY MOUTH EVERYDAY AT HPHUHNN2204/25/2020Active colchicine 0.6 mg tablet Take 0.6 mg by mouth in the morning and at bedtime.11/15/2020ctive diclofenac (Voltaren) 50 mg EC tablet Take 50 mg by mouth in the morning and at bedtime.Active febuxostat (Uloric) 40 mg tablet febuxostat 40 mg tablet TAKE 1 TABLET BY MOUTH EVERY DAY04/25/2020Active gabapentin (Neurontin) 300 mg capsule gabapentin 300 mg capsule TAKE 1 CAPSULE BY MOUTH THREE TIMES A DAY11/15/2020ctive lisinopril 5 mg tablet lisinopril 5 mg tablet TAKE 1 TABLET BY MOUTH EVERY DAYActive metFORMIN XR (Glucophage-XR) 500 mg 24 hr tablet metformin ER 500 mg tablet,extended release 24 hr TAKE 1 TABLET BY MOUTH EVERY DAY IN THE MORNINGActive semaglutide (Ozempic) 1 mg/dose (4 mg/3 mL) pen injector Ozempic 1 mg/dose (4 mg/3 mL) subcutaneous pen injectorActive traMADol (Ultram) 50 mg tablet tramadol 50 mg tablet TAKE 1 TABLET BY MOUTH 3 TIMES A DAY NEEDED FOR LUMBAR RADICULOPATHYActive testosterone cypionate (Depo-Testosterone) 200 mg/mL injection INJECT 1/2 ML INTRAMUSCULARLY EVERY 2 WEEKS01/09/2023Active tiZANidine (Zanaflex) 4 mg tablet TAKE 2 TABLETS BY MOUTH EVERY DAY AT YOQVVXL6207/11/2022ctive Active Problems ProblemNoted DateDiagnosed DateBenign prostatic hyperplasia with urinary rpauezltxbg55/18/2023History of colonic rafgpb6007/31/2022Hydronephrosis with renal and ureteral calculus bgsasshxawj68/18/2023Liver mass07/31/2022Long term current use of anticoagulant bcdfdsj4707/31/2022Neoplasm of uncertain behavior of liver and biliary xdclxuuf58/18/5759Hbtywgsv94/18/6500Oeymhk12/31/2022ack pain 12/11/2021iabetes mphcquve70/31/2832Nana30/31/2022History of pulmonary embolism 12/11/2021 Assessment & Plan (07/31/2022 2:19 PM EST): Currently stable History of severe acute respiratory syndrome coronavirus 2 (SARS-CoV-2) disease 12/11/20212783Ahsqosbgnsbqhv08/31/2022 Assessment & Plan (07/31/2022 2:17 PM EST): Lipid abnormalities are currently well controlled with lipitor 20 mg- LDL currently 58.6 on labs 07/26/2022 Liver function 04/2022 were normal Hypertensive astwcfbi04/31/2022 Assessment & Plan (07/31/2022 2:18 PM EST): Hypertension is well controlled 114/64 Continue lisinopril 5 mg Recent CR elevated 1.59- his cr typically has been 1.2-1.4 - He has been on antibiotics for Lt foot infection- DFU with wound care. Lgqjmou8312/11/2021bstructive sleep apnea yvwbyyha30/31/2022 Family History Medical HistoryRelationNameCommentsStrokeFatherRelationNameStatusCommentsFather Social History Tobacco UseTypesPacks/DayYears UsedDateSmoking Tobacco: NeverSmokeless Tobacco: Never Tobacco Cessation:Counseling Given: Not Answered Alcohol UseStandard Drinks/WeekCommentsYes0 (1 standard drink = 0.6 oz pure alcohol)occasionalUT Safety & EnvironmentAnswerDate RecordedFear of Current or Ex-PartnerNot on file09/04/2023Emotionally AbusedNot on file09/04/2023hysically AbusedNot on file09/04/2023Sexually AbusedNot on file09/04/2023hysically or Sexually AbusedNot on file09/04/2023Sex and Gender InformationValueDate Recorded Sex Assigned at BirthNot on fileLegal ZvqXpgu0301/09/2022 9:30 PM EDTGender IdentityNot on fileSexual OrientationNot on file Last Filed Vital Signs Vital SignReadingTime TakenCommentsBlood Mwcprpra172/6401 1:39 PM EST Nvvai790107/31/2022 1:39 PM ESTTemperature--Respiratory Rate--Oxygen Igjqpasqdl79% 07/31/2022 1:39 PM ESTInhaled Oxygen Concentration--Hamnnq982 kg (308 lb) 07/31/2022 1:39 PM TFCGonffl635.4 cm (6' 1 )07/31/2022 1:39 PM ESTBody Mass Index40.64007/31/2022 1:39 PM EST Plan of Treatment Health MaintenanceDue DateLast DoneCommentsCT Ljhdhywpuxtk27/09/1957Colonoscopy 1956Colorectal Cancer Jwkqonxyo18/09/1957Diabetes: Hemoglobin A1C 1956FIT-DNA1956FIT1956FOBT1956Medicare Annual Wellness (AWV)1955 0480Hlyzzusjberub95/09/1957Diabetes: Retinopathy Fxmdbimha58/09/1967 Depression Wftebumoj24/09/1969Diabetes: Urine Protein Bhprbekgx21/09/1976Adult Jtqspkm1708/22/1978Zoster Vaccines (1 of 2)2006Fall Risk Jxbmskoce62/09/2022 Pneumococcal Vaccine: 50+ Years (2 of 2 - PCV)OVID-19 Vaccine ( season)509/, 04/20/2023, 04/20/2023, Additional history existsInfluenza Vaccine (#1)510/01/2024, 04/17/2022, 04/07/2021, Additional history existsHIB VaccinesAged OutNo longer eligible based on patient's age to complete this topicHPV VaccinesAged OutNo longer eligible based on patient's age to complete this topicIPV VaccinesAged OutNo longer eligible based on patient's age to complete this topicMeningococcal B VaccineAged OutNo longer eligible based on patient's age to complete this topic Meningococcal VaccineAged OutNo longer eligible based on patient's age to complete this topicRotavirus VaccinesAged OutNo longer eligible based on patient's age to complete this topic Insurance Care Teams Team MemberRelationshipSpecialtyStart DateEnd Date Tulio Madrid MD [address] [place] [address] PCP - [facility]07/05/24
--- OUTSIDE RECORDS SUMMARY | 2025-05-04 07:56 | XMS_ITS | Patient Health Record ---
Author Organization [facility] Address [address] [place] [address] Care Team Providers Care Installer Apprentice Name Role Phone Tulio Madrid Primary Care Provider Daniele Ruffin Unavailable [phone] Akash Hall Unavailable [phone] Results Component Value Reference Range Notes Surgery Scheduling Reviewed date:08/31/2024 09:51:53 AM Interpretation: Performing Lab: Notes/Report: Primary Insurance Company: [employer]IL[employer] Surgeon/Assist:ANTHONY/NEEDS ONESur[facility]: [facility] @ 9 AMHosp arrival time day of:7:00 AMSurgery End Time:12:00Procedure: LEFT TOTAL KNEE ARTHROPLASTYSpecial Equipment:[employer] AND [employer] VISIONEERC-Arm: YESDiagnosis:OSTEOARTHRITIS OF LEFT KNEEAdmission Type:OPAnesthesia Type/CPNB: GENERAL/VUKFLMfx88 HR OBSPost-op Appointment Date:08/23/24 @ 2 PMLatex AllergyNO Lab Location:[facility] Date/Time:07/20/2024 @ 9 AM[facility] Date/ Buttermaker Helper:ISMAEL Munozory & Physical Appointment Date/:07/26/24Pre-op labs/Chest Order:CBC WI,CMP,MRSA,UA WITH C AND S, URINE NICOTINE,CXR,EKGHad or have MRSA/Direct contact w MRSA pt/HCWNOHad dental problems/Yes-no/type:NOMRI Knee Surg.Navigate or Plan ONLY Left (Not yet reviewed by provider) Interpretation: Performing Lab: Notes/Report: Patient Name: Carlos Locke HISTORY: Arthritis of the left knee. Preoperative planning.XR Knee 1 or 2 Views Left (Not yet reviewed by provider) Interpretation: Performing Lab: Notes/Report: Patient Name: Carlos Locke EXAM: Left kneeXR Foreign Body Loc Eye Bilateral (Not yet reviewed by provider) Interpretation: Performing Lab: Notes/Report: Patient Name: Carlos Locke Procedure: AP view of the orbits.XR Knee Standing AP Bilateral (Not yet reviewed by provider) Interpretation: Performing Lab: Notes/Report: Patient Name: Carlos Locke EXAM: XR Knee Standing AP BilateralXR Knee Standing AP Bilateral (Not yet reviewed by provider) Interpretation: Performing Lab: Notes/Report: Patient Name: Carlos Locke EXAM: XR Knee Standing AP BilateralXR KNEE LEFT (3 VIEWS) (Not yet reviewed by provider) Interpretation: Performing Lab: Notes/Report: EXAM: XR KNEE LEFT (3 VIEWS) Performed at: [place] [id number] Reason For Referral Reason NO PRIOR AUTH REQUIR ED ANTHEM...NOT SCHED...PLEASE PRECERT LEFT KNEE MRI WITH BOWMAN AND NEPHEW PROTOCOL AT [facility] Diagnosis 1 Primary osteoarthrit is of left knee (M17.12) Diagnosis 2 Pain in left knee (M 25.562) Referral Organization [facility] Referring Provider First Name Danieel Referring Provider Last Name Anthony Referring Provider Speciality Orthopedic Surgery Referred Organization [facility] Radiology Dept . Referred Provider Daniele Valencia Referred Address [address] [place] [address], Referred Provider Specialty Orthopedic S urgery Procedure 1 MRI Joint Lower Ext w/o Dye (68132) General Notes Ismael Mariee 2023 10:22:15 AM >Juan Alberto Amber 06/23/2024 03:49:25 PM > PENDING WITH [facility]. FORM AND CLINICALS FAXED. FORM IN CHART.Juan Alberto Amber 06/25/2024 08:14:25 AM > NO PRIOR AUTH REQUIRED PER FAX FROM [facility]. REF IN CHART. PER AVAILITYWILFRID IS ACTIVE OF 07/14/2022. FAXED TO [facility].Kodi Tricia 06/28/2024 06:56:53 AM >ORDERS FAXED Referral Priority Routine Reason APPROVED ANTHEM... 08/09...PLEASE PRECERT LEFT TOTAL KNEE REPLACEMENT WITH BOWMAN AND NEPHEW AT [facility] Diagnosis 1 Primary osteoarthrit is of left knee (M17.12) Referral Organization [facility] Referring Provider First Name Daniele Referring Provider Last Name Anthony Referring Provider Speciality Orthopedic Surgery Referred Organization [facility] Referred Provider Daniele Valencia Referred Address [address] [place], [place],[address],[place] Referred Provider Specialty Orthopedic S urgery Procedure 1 Arthroplasty Knee To clare Med/Lat Compartments (41012) General Notes Ismael Mariee 2024 09:43:18 AM >, Bell Avendano 07/23/2024 12:38:24 PM > AUTH IS PENDING WITH [facility]. FORM AND CLINICALS WERE FAXED. FORM IN CHART.Juan Alberto Amber 07/26/2024 02:03:05 PM > AUTH WAS APPROVED PER [facility]. APPROVED DATES ARE FROM 07/23/2024-09/20/2024. AUTH #[id number]. AUTH IN CHART. PER AVAILITYWILFRID IS ACTIVE OF 07/14/2022. FAXED TO [facility]. Referral Priority Routine Medications Medication SIG (Take, Route, Frequency, Duration) Notes Start Date End Date Status Adult Aspirin Regimen 81 mg 1 tab(s) orally 2 TI MES A DAY for 30 days 5Active Social History Tobacco Use: Social History Observation Description Date Details (start date - stop date) Never Smoker NA - NA AUDIT-C (Standard) Question Answer Notes Did you have a drink containing alcohol in the p ast year? Yes How often did you have six or more drinks on one occasion in the past year?Never (0 point)How many drinks did you have on a typical day when you were drinking in the past year?1 or 2 drinks (0 point)How often did you have a drink containing alcohol in the past year?Monthly or less (1 point)Kxdrti8AxdbhwfjmosvwxSszxlfjo Tobacco Control (Standard) Question Answer Notes Tobacco use: Nonsmoker Problems Problem Type SNOMED Code ICD Code Onset Dates Problem Status W/U Status Risk Notes Problem 540671006 Aftercare following joint re placement surgery (Z47.1) RkjeffngwqozixkYrfaair9772027266Ghgs in right knee (M25.561)Activeconfirmed Gaqjgni280593484508585Prwgidi osteoarthritis of left knee (M17.12)Active nlfcowexlPbbnjst267524319242611Ltjt in left knee (M25.562)ActiveconfirmedProblem 663216658158Stvgnosg of left artificial knee joint (Z96.652)Activeconfirmed Lhtzmxa013725828Owmmnev osteoarthritis of knees, bilateral (M17.0)Active confirmed Vital Signs Height 6'1 in 01/31/2025 Chkvfg290 lbs5BMI37.9901/31/2025 Encounters Encounter Location Date Provider Diagnosis [facility] [address] [place] [address] 06/21/2024 Daniele Valencia Pain in right knee M25.561 ; Pain in left knee M25.562 and Primary osteoarthritis of left knee M17.12 [facility] [address] [place] [address] 07/26/2024 Daniele Valencia Primary osteoarthrit is of left knee M17.12 [facility] [address] [place] [address] 08/23/2024 Daniele Anthony Primary osteoarthrit is of left knee M17.12 [facility] [address] [place] [address] 09/06/2024 Daniele Valencia Aftercare following joint replacement surgery Z47.1 and Presence of left artificial knee joint Z96.652 [facility] [address] [place] [address] 10/04/2024 Daniele Valencia Aftercare following joint replacement surgery Z47.1 and Presence of left artificial knee joint Z96.652 [facility] [address] [place] [place] [address] [place] [address] 12/20/2024 Daniele Valencia Aftercare following joint replacement surgery Z47.1 and Presence of left artificial knee joint Z96.652 [facility] [address] [place] [address] 01/31/2025 Daniele Valencia Aftercare following joint replacement surgery Z47.1 and Presence of left artificial knee joint Z96.652 [facility] [address] [place] [address] 06/08/2024 Akash Hall [facility] [place] [address]/ [facility] [place] [address]/04/2025Dylan [facility] osteoarthritis of left knee M17.12 ; Presence of left artificial knee joint Z96.652 and Aftercare following joint replacement surgery Z47.1[facility] [place] [address]/Dylan MathewsAftercare following joint replacement surgery Z47.1[place] [address] [place] [address]/09/2024Dylan MathewsAftercare following joint replacement surgery Z47.1 Assessments Encounter Date Diagnosis (ICD Code) Assessment Notes Treatment Notes Treatment Clinical Notes Section Notes 06/21/2024 Pain in right knee (ICD-10 - M25 .561) Left knee hzohwlzgofocjp42/09/2024ain in left knee (ICD-10 - M25.562)Left knee ybnpwidrstmmrh17/13/2025Primary osteoarthritis of left knee (ICD-10 - M17.12) Left knee zmpqoqmqhdjnvu28/10/2025Primary osteoarthritis of left knee (ICD-10 - M17.12)08/23/2024Primary osteoarthritis of left knee (ICD-10 - M17.12)08/23/2024 Presence of left artificial knee joint (ICD-10 - Z96.652)08/26/2024ftercare following joint replacement surgery (ICD-10 - Z47.1)09/06/2024ftercare following joint replacement surgery (ICD-10 - Z47.1)Status post left total knee enmcxjrnxbqh43/03/2025ftercare following joint replacement surgery (ICD-10 - Z47.1)10/04/2024ftercare following joint replacement surgery (ICD-10 - Z47.1) Status post left total knee lolkvnnoapjt32/09/2025ftercare following joint replacement surgery (ICD-10 - Z47.1)Status post left total knee arthroplasty. 01/31/2025ftercare following joint replacement surgery (ICD-10 - Z47.1)Right knee OA01/31/2025Presence of left artificial knee joint (ICD-10 - Z96.652)Right knee OA12/20/2024Presence of left artificial knee joint (ICD-10 - Z96.652)Status post left total knee arthroplasty.10/04/2024Presence of left artificial knee joint (ICD-10 - Z96.652)Status post left total knee fkrsbjompigk60/24/2025 Presence of left artificial knee joint (ICD-10 - Z96.652)Status post left total knee wapqwjrcroql15/10/2025ftercare following joint replacement surgery (ICD-10 - Z47.1)06/21/2024rimary osteoarthritis of left knee (ICD-10 - M17.12)Left knee mrpfrsgmveohtm84/09/2024OtherI discussion with the patient regarding his left knee pain. Does have severe osteoarthritis of the left knee. We discussed treatment options. Has exhausted conservative management no relief. Will proceed forward with left total knee arthroplasty. He understands risk and benefits of the procedure. No guarantees made. Will plan for left total knee arthroplasty with freddy bowman and nephew. Willhave him received clearance from his PCP and repeat A1c.Left knee vhoztyfnzhfglo74/13/2025OtherPatient is a 68-year-old male presenting today for his left knee osteoarthritis. He is exhausted con servative management. Do believe total knee arthroplasty can provide him with some benefit. Discussed risk and benefits of surgery in detail. No guarantees send and signed in the office today. Plan for left total knee arthroplasty.Left knee wzrnxzlogtpzpj41/24/2025OtherPatient overall doing very well today in regard to his left total knee arthroplasty. Mobilizing quite well. Range of motion he is fairly stiff but overall progressing appropriately. Continue DVT prophylaxis. Follow-up in 1 month for clinical exam no x-rays.Status post left total knee vmgsrjwqecaf18/24/2025OtherPatient doing well today 6 weeks postop. Range of motion improving. Continue with aggressive PT. He may start to drive. Will see him back in the office in 6 weeks with x-raysStatus post left total knee ojqpcqscwinc09/09/2025OtherPatient doing quite well today in regards to his left total knee arthroplasty. Excellent range of motion. Not having much pain. Continue mobilization. Follow-up in 6 months with repeat x-rays.Status post left total knee arthroplasty.01/31/2025OtherPatient overall doing well today regards to his right knee OA. Good response to injection. Considering right total knee arthroplasty. He is going to think about this and call our office for when he wa nts to schedule.Right knee OA Plan Of Treatment Pending Test Test Name Order Date Knee, left 3v AP, Lat, [place] - 96679 0 01/31/2025 PT - Evaluate and Treat, as directed, 2 - 3 times a week x 4 - 6 weeks 07/26/2024 XR Foreign Body Loc Eye Bilateral 2024 XR Knee 1 or 2 Views Left 07/23/2024 XR Knee Standing AP Bilateral 07/26/2024 XR Knee Standing AP Bilateral 07/26/2024 SCC- KNEE 4 VIEW LEFT-[id number] 06/21/2024 XR KNEE LEFT (3 VIEWS) 01/31/2025 SCC- KNEE 4 VIEW RIGHT 65962 06/21/2024 SCC- KNEE 2 VIEW LEFT - 37089 09/06/2024 SCC- KNEE 2 VIEW LEFT - 28502 10/04/2024 SCC- KNEE 2 VIEW LEFT - 44876 12/20/2024 MRI Knee Surg.Navigate or Plan ONLY Left 07/23/2024 Hip to ankle Lt -24445 visioneer 024 MRI : Knee, Left. Bowman & Nephew Visiona shanita including long leg films 32799 06/21/2024 Insurance Providers Payer Name Payer Address Payer Phone Subscriber Number Group Number Insured Name Patient Relationship to Insured Coverage Start Date Coverage End Date Wilfrid [address] [place] [address] [id number] ILA LOCKE Spouse - patient is the spouse of the insured 5 Medications Administered Medication Instructions Date of Administration Dosage Notes BUPIVACAINE mLDepo-Nngqed40 vInilzhsyox25/26/20244 mL
--- OUTSIDE RECORDS SUMMARY | 2025-05-04 07:56 | XMS_ITS | Clinical Summary ---
Author Organization [facility] Address [address] [place] [address], [address] [place] [address] Care Team Providers Care Avionics Shop Supervisor Name Role Phone Tulio Madrid MD Primary Care Provider + Encounters DateTypeDepartmentCare QdybMknlrlfzxyx55/21/2025 1:13 PM EDT - 02/02/2025 11:59 PM EDTHospital Encounter [facility] [address] [place] [address] Aftercare following left knee joint replacement surgery Discharge Disposition: Home or Self Carefrom Last 3 Months Social History Tobacco UseTypesPacks/DayYears UsedDateSmoking Tobacco: Never AssessedSex and Gender InformationValueDate RecordedSex Assigned at BirthNot on fileLegal Sex Male01/31/2025 12:58 PM EDTGender IdentityNot on fileSexual OrientationNot on file Plan of Treatment Health MaintenanceDue DateLast DoneCommentsDepression Rxzlho6008/22/1968Hepatitis C dddmxo7108/22/1974DTaP/Tdap/Td vaccine (1 - Tdap)08/22/19756007Wzdiwc51/09/1997 Hjdmhrrufzd63/09/2002Colorectal Cancer Uptebw5008/22/2001FIT/FOBT: Average risk 2001Fecal-DNA (Cologuard): Average risk2001Sigmoidoscopy/CT xkhxtoyhxgxn06/09/2002Shingles vaccine (1 of 2)2006Pneumococcal 50+ years Vaccine (2 of 2 - PCV)/Flu vaccine (#1)510/01/2024, 04/17/2022, 04/07/2021, Additional history existsCOVID-19 Vaccine ( season)5004/05/2024, 04/20/2023, 03/23/2022, Additional history exists Respiratory Syncytial Virus (RSV) or age 60 yrs+ (1 - 1-dose 75+ series)2031Hepatitis A vaccineAged OutNo longer eligible based on patient's age to complete this topicHepatitis B vaccineAged OutNo longer eligible based on patient's age to complete this topicHib vaccineAged OutNo longer eligible based on patient's age to complete this topicMeningococcal (ACWY) vaccineAged OutNo longer eligible based on patient's age to complete this topicMeningococcal B vaccineAged OutNo longer eligible based on patient's age to complete this topicPolio vaccineAged OutNo longer eligible based on patient's age to complete this topic Insurance Care Teams Team MemberRelationshipSpecialtyStart DateEnd Date Tulio Madrid MD [address] [place] [address] [facility]
--- OUTSIDE RECORDS SUMMARY | 2025-05-04 07:56 | XMS_ITS | Clinical Summary ---
Author Organization [facility] Address [id number] [address] [place] [address] Care Team Providers Care Treatment Counselor Name Role Phone Unavailable Primary Care Provider Unavailabl e Social History Tobacco UseTypesPacks/DayYears UsedDateSmoking Tobacco: Never AssessedChildcare AnswerDate GwoncyooEmfcesamgUknvnxa02/11/2019EmploymentAnswerDate Recorded LyztjucgmjYddkjqd33/11/2019Purpose - LifeAnswerDate RecordedPurpose and direction in qamfLubzfep36/11/2021Sex and Gender InformationValueDate Recorded Sex Assigned at BirthNot on fileLegal VeyAtlv3002/14/2015 9:00 PM EDTGender IdentityNot on fileSexual OrientationNot on file Plan of Treatment Health MaintenanceDue DateLast DoneCommentsDepression Rbdalumtd64/09/1969Tobacco Epsbutopa62/09/1969Adult BMI Ixpzswibn80/09/1975DTaP,Tdap and Td Vaccines (1 - Tdap)1975Zoster (Shingles) Vaccine (1 of 2)2006Fall Risk Screening 2021Influenza Izvslap2103/14/2025 Medical Devices Not on file
--- OUTSIDE RECORDS SUMMARY | 2025-05-04 07:57 | XMS_ITS | Patient Health Record ---
Author Organization [facility] [place] Address [address] [place] [address] Care Team Providers Care Pharmacist Aide Name Role Phone None, Unknown or Primary Care Provider Unavailab James Gutierrez Unavailable [phone] Allergies Allergen (clinical drug ingredient) Drug/Non Drug Allergy documented on EMR Reaction Allergy Type Onset Date Status oxycodone Oxycodone Unknown Drug Allergy Active Results Component Value Reference Range Notes PROF CHEM 8 (BAS METB) Reviewed date:08/24/2024 12:52:49 PM Interpretation: Performing Lab: Notes/Report: [facility] , Sodium 143 136-145 mmol/L Potassium4.73.5-5.1 mmol/CBonnpvms43671-112 mmol/LCarbon Flejayu23.421.0-32.0 mmol/LAnion Gap14.8Nfpjigj61685-418 mg/dLBlood Urea Udoqzkcp30.07.0-18.0 mg/dL Creatinine1.620.70-1.30 mg/dLEstimated GFR ( Xaqmymp31>=60 mL/min/1.73m 2 Estimated GFR (Non- Ame43>=60 mL/min/1.73m 2BUN Creatinine Ratio17.3 Calcium7.78.5-10.1 mg/dLPerforming Lab:see noteML - [facility] LBCBC AUTO DIFF Reviewed date:08/24/2024 12:52:49 PM Interpretation: Performing Lab: Notes/Report: [facility] ,White Blood Count13.84.0-11.0 10 3/uLRed Blood Count3.504.70-6.10 10 6/uL Rjvyiohtpv37.514.0-18.0 g/iFCelwtxsqkf32.842.0-54.0 %Mean Corpuscular Wgttci31.4 80.0-94.0 fLMean Corpuscular Kknohvjsrr58.925.9-34.0 pgMean Corpuscular HGB Conc 33.029.9-35.2 g/dLRed Cell Distribution Width13.711.0-15.0 %Platelet Xpbab925 150-450 10 3/uLMean Platelet Volume9.29.5-13.5 fLNeutrophils Percent Auto81.1 43.0-75.0 %Lymphocytes Percent Auto8.920.5-60.0 %Monocytes Percent Auto9.11.7- 12.0 %Eosinophils Percent Auto0.10.9-7.0 %Basophils Percent Auto0.10.2-2.0 % Immature Granulocytes Pct Auto0.70.0-0.5 %Neutrophils Absolute Auto11.21.4-6.5 10 3/uLLymphocytes Absolute Auto1.21.2-3.8 10 3/uLMonocytes Absolute Auto1.30.3- 0.8 10 3/uLEosinophils Absolute Auto0.00.0-0.7 10 3/uLBasophils Absolute Auto0.0 0.0-0.1 10 3/uLImmature Granulocytes Abs Auto0.090.00-0.03 10 3/uLPerforming Lab:see noteML - [facility] Reason For Referral No Information Medications Medication SIG (Take, Route, Frequency, Duration) Notes Start Date End Date Status Lisinopril 5 MG TAKE 1 TABLET BY MOUTH EVERY DAY Oral; Duration: 90 Days ActivetiZANidine HCl 4 MGTAKE 2 TABLETS BY MOUTH AT BEDTIME Oral; Duration: 90 DaysActivetraMADol HCl 50 MGTAKE 1 TABLET BY MOUTH THREE TIMES A DAY NEEDED Oral; Duration: 30 DaysActiveDiclofenac Sodium 50 MGOral; Duration: 30 Days ActiveTadalafil 10 MGTAKE 1-2 TABS 60 MIN PRIOR TO SEXUAL ACTIVITY NEEDED FOR ERECTILE DYSFUNCTION.MAX 2 TABS IN 24HRS Oral; Duration: 30 DaysActiveFebuxostat 40 MGTAKE 1 TABLET BY MOUTH EVERY DAY Oral; Duration: 90 DaysActiveTestosterone Cypionate 200 MG/MLINJECT 0.5 ML INTRAMUSCULARLY EVERY 2 WEEKS Intramuscular; Duration: 84 DaysActivediazePAM 10 MGTAKE 1 TABLET BY MOUTH 1 HOUR PRIOR TO PROCEDURE Oral; Duration: 1 DaysActiveOzempic (1 MG/DOSE) 4 MG/3MLINJECT 1MG SUBCUTANEOUSLY ONCE WEEKLY Subcutaneous; Duration: 84 DaysActiveColchicine 0.6 MGTAKE 1 TABLET BY MOUTH THREE TIMES A DAY NEEDED FOR GOUT Oral; Duration: 20 DaysActivemetFORMIN HCl ER 500 MGOral; Duration: 90 DaysActiveAtorvastatin Calcium 20 MGTAKE 1 TABLET BY MOUTH EVERYDAY AT BEDTIME Oral; Duration: 90 Days ActiveGabapentin 300 MGTAKE 1 CAPSULE BY MOUTH THREE TIMES A DAY Oral; Duration: 90 DaysActive Social History Tobacco Use: Social History Observation Description Date Details (start date - stop date) Never Smoker NA - NA Tobacco Use/Smoking Question Answer Notes Patient is a nonsmoker Problems Problem Type SNOMED Code ICD Code Onset Dates Problem Status W/U Status Risk Notes Problem Polyneuropathy due t o type 2 diabetes mellitus (137748938) Type 2 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) ActiveconfirmedProblemFoot ulcer due to type 2 diabetes mellitus (6789709361827) Type 2 diabetes mellitus with foot ulcer (E11.621)ActiveconfirmedProblemAcquired hallux valgus (45850974)Hallux valgus (acquired), left foot (M20.12)Active confirmedProblemAcquired hallux rigidus (5358875)Hallux rigidus, left foot (M20.22)ActiveconfirmedProblemPseudarthrosis after fusion or arthrodesis (079432966)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)Activeconfirmed ProblemPain associated with internal prosthetic device (disorder) (496489746) Pain due to internal orthopedic prosthetic devices, implants and grafts, initial encounter (T84.84XA)ActiveconfirmedProblemHistory of arthrodesis (788326854) Arthrodesis status (Z98.1)ActiveconfirmedProblemAcquired hallux rigidus (9253139)Acquired hallux rigidus of left foot (M20.22)ActiveconfirmedProblem Delayed healing of surgical wound (finding) (445549393)Delayed surgical wound healing (T81.89XA)ActiveconfirmedProblemPolyneuropathy due to type 2 diabetes mellitus (502462521)Diabetes mellitus with polyneuropathy (E11.42)Active confirmedProblemChronic foot ulcer, limited to breakdown of skin, left (L97.521) Activeconfirmed Plan Of Treatment Pending Test Test Name Order Date XR Foot LT (3 views) * 02/11/2024 XR foot LT min 3V 07/02/2023 Insurance Providers Payer Name Payer Address Payer Phone Subscriber Number Group Number Insured Name Patient Relationship to Insured Coverage Start Date Coverage End Date [employer] ACC[employer] PPO PLUS LOCAL PLAN [address] [place] [address] [id number] Ilya Kanwal Spouse - patient is the spouse of the insured 3 [place] [id number] Part A OnlyLance Caraballof - patient is the insured Medical (General) History Medical History History ICD Code Diabetes due to underlying condition w d iabetic neurop, unsp E08.40 High cholesterol E78.00 Gout M10.9 Peripheral neuropathy G62.9 Chronic pain G89.29 Hypertension I10 Surgical History Surgery Date(Month/Year) left 1st MPJ fusion, hallux interphalang eal joint arthroplasty 10/21/2022 back injections
--- OUTSIDE RECORDS SUMMARY | 2025-05-04 07:57 | XMS_ITS | Clinical Summary ---
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 [employer] Name Role Phone Tulio Madrid MD Primary Care Provider [phone] Allergies Active AllergyReactionsCriticalityNoted OoznKreuwoskSduvfevwx09/18/2023 Other Reaction(s): Hyperactive behavior, Other Oxycodone-AcetaminophenItching,TixjEqn9007/31/2022 Medications MedicationSigDispense QuantityRefillsLast FilledStart DateEnd DateStatus allopurinol (Zyloprim) 300 MG tablet 1 (one) time each day at the same time.Active baclofen (Lioresal) 20 MG tablet Take 1 tablet by mouth at bedtime.Active diclofenac (Voltaren) 50 MG EC tablet Take 1 tablet by mouth in the morning and 1 tablet before bedtime.Active traMADol (Ultram) 50 MG tablet TAKE 1 TABLET BY MOUTH 3 TIMES A DAY NEEDED FOR LUMBAR RADICULOPATHYActive tiZANidine (Zanaflex) 4 MG tablet Take 4 mg by mouth every 6 (six) hours if needed for muscle spasmsActive diazePAM (Valium) 10 MG tablet Take by mouth every 8 (eight) hours if neededActive atorvastatin (Lipitor) 20 MG tablet Indications:DyslipidemiaTake 1 tablet (20 mg) by mouth at bedtime 90 tablet 4Active metFORMIN XR (Glucophage-XR) 500 MG 24 hr tablet Indications:Morbid obesity (CMS-HCC),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),Type 2 diabetes mellitus with hyperglycemia, without long-term current use of insulin (HCC)TAKE 1 TABLET BY MOUTH EVERY DAY IN THE MORNING 90 tablet 4Active lisinopril 5 MG tablet Indications:Morbid obesity (CMS-HCC),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),Type 2 diabetes mellitus with hyperglycemia, without long-term current use of insulin ([facility])TAKE 1 TABLET BY MOUTH EVERY DAY 90 tablet 4Active probenecid (Benemid) 500 MG tablet Indications:Arthritis, goutyTake 1 tablet (500 mg) by mouth every 12 (twelve) hours 60 tablet 5Active Syringe/Needle, Disp, (B-D 3CC LUER-HERMINIO SYR 23GX1 ) 23G X 1 3 ML misc Indications:Male hypogonadismInject 1 each into the shoulder, thigh, or buttocks every 14 (fourteen) days 50 each 1105Active colchicine 0.6 MG tablet Indications:Arthritis, goutyTake 1 tablet (0.6 mg) by mouth 3 (three) times a day as needed for muscle/joint pain 60 tablet 5Active Semaglutide, 2 MG/DOSE, (Ozempic, 2 MG/DOSE,) 8 MG/3ML solution pen-injector Indications:Type 2 diabetes mellitus with hyperglycemia, without long-term current use of insulin ([facility])INJECT 2 MG SUBCUTANEOUSLY WEEKLY 9 mL 5Active febuxostat (Uloric) 40 MG tablet Indications:Type 2 diabetes mellitus with hyperglycemia, without long-term current use of insulin (HCC),Morbid obesity (CMS-HCC),Polyneuropathy due to type 2 diabetes mellitus ([facility])Take 1 tablet (40 mg) by mouth Daily 90 tablet 5Active testosterone cypionate (Depo-Testosterone) 200 MG/ML injection Indications:Male hypogonadismInject 0.5 mL (100 mg) into the shoulder, thigh, or buttocks every 14 (fourteen) days 10 mL 5Active traZODone (Desyrel) 50 MG tablet Indications:Primary insomniaTake 1 tablet (50 mg) by mouth at bedtime 30 tablet 5Active gabapentin (Neurontin) 300 MG capsule Indications:Polyneuropathy due to type 2 diabetes mellitus ([facility])TAKE 1 CAPSULE BY MOUTH IN THE MORNING, EVENING AND BEFORE BEDTIME 270 capsule 5Active Active Problems ProblemNoted DateDiagnosed DateEncounter for long-term current use of medication 08/05/2024Screening PSA (prostate specific antigen)08/05/2024Encounter for preoperative jsnjsnezgx33/02/2025 Assessment & Plan (07/15/2024 9:48 AM EST): Able to proceed with upcoming surgery at low risk for complications. History of DM but controlled with medication. No CAD or HTN. Not having chest pain or palpitations. Recommend routine PAT. Seasonal allergic rhinitis due to ixvwgq7901/12/2024 Assessment & Plan (01/12/2025 9:44 AM EDT): Symptoms controlled with medication and continue. Assessment & Plan (01/12/2024 9:44 AM EDT): Symptoms controlled with medication and continue. Primary cyiknrgm88/01/2024 Assessment & Plan (01/12/2025 9:43 AM EDT): Sleeping well with medication and continue. Assessment & Plan (01/12/2024 9:44 AM EDT): Not sleeping well but wants to continue melatonin. If worsens can try trazodone. Polyneuropathy due to type 2 diabetes /10/2024 Assessment & Plan (07/15/2024 9:49 AM EST): Neuropathy stable and continue neurontin. Assessment & Plan (01/12/2024 9:44 AM EDT): Neuropathy stable and continue neurontin. Primary osteoarthritis of knees, eolmhehxy89/10/2024nnual physical exam 07/23/2023 Assessment & Plan (07/15/2024 [...] daily Aspirin therapy. DDD (degenerative disc disease), vnabtt8906/26/2023 Assessment & Plan (01/12/2025 9:43 AM EDT): Pain stable and follow with pain management. Assessment & Plan (01/12/2024 9:44 AM EDT): Pain stable and follow with pain management. Ldpubkgnppzk16/14/2023 Assessment & Plan (07/15/2024 9:51 AM EST): Due for labs. Arthritis, gouty108/27/2022 Assessment & Plan (01/12/2025 9:43 AM EDT): No flares and continue allopurinol. Assessment & Plan (01/12/2024 9:43 AM EDT): No flares and continue allopurinol. Male ymdrupbakzfo30/14/2023NAFL (nonalcoholic fatty liver)06/26/2023lass 2 severe obesity due to excess calories with serious comorbidity and body mass index (BMI) of37.0 to 37.9 in adult06/26/2023 Assessment & Plan (01/12/2025 9:43 AM EDT): Weight loss indicated. Assessment & Plan (07/15/2024 9:50 AM EST): Weight down 9 pounds in past year. Continue exercise and diet changes. Obstructive sleep apnea (adult) (pediatric)06/26/2023Type 2 diabetes mellitus with hyperglycemia, without long-term current use of fawummn1306/26/2023 Assessment & Plan (01/12/2025 9:44 AM EDT): [...] Stick to ADA diet and limit carbs. Kemhnusebgld22/03/2023ge-related nuclear cataract of both eyes03/10/2023 Resolved Problems ProblemNoted DateDiagnosed DateResolved DateAbscess of abdominal wall10/13/2024 01/12/2025 Assessment & Plan (10/13/2024 1:51 PM EDT): Recent abscess but improved after drainage. Use heat PRN. Treat with bactrim. Cover with neosporin. Encounters DateTypeDepartmentCare CvuwVsduepgmail21/24/2025Refill [facility] [address] [place] [address] Tulio Madrid MD 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)from Last 3 Months Family History Medical HistoryRelationNameCommentsCancerFatherDiabetesFatherHypertensionFather DiabetesMotherHypertensionMotherRelationNameStatusCommentsFatherMother Social History Tobacco UseTypesPacks/DayYears UsedDateSmoking Tobacco: NeverSmokeless Tobacco: Never Tobacco Cessation:Counseling Given: Not Answered Sex and Gender InformationValueDate RecordedSex Assigned at BirthNot on file Legal LvhUzkd1309/25/2022 7:24 PM EDTGender IdentityNot on fileSexual Orientation Not on file Last Filed Vital Signs Vital SignReadingTime TakenCommentsBlood Tgwlimqr371/8407 8:53 AM EDT Jpipl386001/12/2025 8:53 AM RCERqyragalbwo26.2 ??C (97.1 ??F)01/12/2025 8:53 AM EDTRespiratory Pxrf059901/12/2025 8:53 AM EDTOxygen Ozlkzstqse85%01/12/2025 8:53 AM EDTInhaled Oxygen Concentration--Wsubtk842 kg (293 lb)01/12/2025 8:53 AM EDT Rrlvms680 cm (6' 2 )01/12/2025 8:53 AM EDTBody Mass Index37.62001/12/2025 8:53 AM EDT Plan of Treatment Health MaintenanceDue DateLast DoneCommentsCT Ekgfquikmcel02/09/1957FIT-DNA 1956FIT1956FOBT1955 7017Hbpqrmtfvvnkr01/09/1957Pneumococcal Vaccine: 65+ Years (2 of 2 - PCV)Influenza Vaccine (#1) /01/2024, 04/12/2023, 04/17/2022, Additional history exists Iqriuudahjo93Colorectal Cancer Zkqzvbxoy94/02/2027 Insurance Care Teams Team MemberRelationshipSpecialtyStart DateEnd Date Tulio Madrid MD [facility]01/12/24
--- OUTSIDE RECORDS SUMMARY | 2025-05-04 07:59 | XMS_ITS | CCD ---
Author Organization [facility] Care Team Providers Care Pyridine Operator Name Role Phone Dominikjamaal Racheal Unavailable [...] RODRIGO Consulting Unavailable BOONE ., DR NATHALY aMin Admitting Unavailable BERRIOS ., DR FELISA Juarez [...] Care Physician TULIO RUGGIERO Primary Care Physician [phone] Tulio Ruggiero MD Unavailable Tulio Ruggiero MD Primary Care Provider Daniele Valencia DO Attending UnavailDaniele Tsai DO Attending UnavailTULIO Etienne Attending Unavailable MONIK, TULIO Attending Unavailable MONIK, TULIO Attending Unavailable Tulio Ruggiero MD Primary Care Provider DANIELE VALENCIA Referring Unavailable TULIO RUGGIERO Primary Care UnavailVika Siddiqi Attending Unavailable ABIODUN HERNANDEZ Attending Unavailable Allergies Allergy ClassificationReported Allergen(s)Allergy TypeDate of OnsetReaction(s) Facility (3 sources)Acetaminophen / oxyCODONEDrug AllergyUnknowRanken [facility] [employer] Other (20 sources)Acetaminophen / oxyCODONE; Translations: [OXYCODONE-ACETAMINOPHEN] Drug Osfndiz11-14-2859Tubodmt, [facility]UnT[facility] Rep[facility] (20 sources)oxyCODONE; Translations: [OXYCODONE]Drug Pwcnjmu75-44-6509 Hyperactive behavior (finding)[facility] Repository (1 source)Acetaminophen / oxyCODONEDrug AllergyThe [facility] Repository (1 source)oxyCODONE; Translations: [OxyCODONE Hydrochloride]Drug AllergyUniversity [facility]als [facility] Repository Medications Current Medications MedicationDrug Class(es)DatesSig (Normalized)Sig (Original)allopurinol 300 mg oral tablet (20 sources)Xanthine Oxidase Inhibitorallopurinol (Zyloprim) 300 MG tablet 1 (one) time each day at the same time. Activeatorvastatin 20 mg oral tablet (20 sources)HMG-CoA Reductase InhibitorStart: 38-05-0622saqg 1 tablet by mouth at bedtimeatorvastatin (Lipitor) 20 MG tablet Indications: Dyslipidemia Take 1 tablet (20 mg) by mouth at bedtime 90 tablet 3 09/30/2023 ActiveAtorvastatin Calcium Activebaclofen 10 mg oral tablet (20 sources)gamma-Aminobutyric Acid-ergic AgonistStart: 12-23-9055muum 1 tablet by mouth at bedtimebaclofen 10 mg Tab 10 mg = 1 tab(s), Oral, Bedtime, Refills(s) 0, Muscle pain Start Date: 11/17/20 Status: Orderedtake 1 tablet by mouth at bedtimebaclofen (Lioresal) 20 MG tablet Take 1 tablet by mouth at bedtime. 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) , Type 2 diabetes mellitus with hyperglycemia, without long-term current use of insulin (CMS/HCC) TAKE 1 TABLET BY MOUTH THREE TIMES A DAY NEEDED FOR GOUT 60 tablet 3 08/06/2023 ActiveColchicine Activecyclobenzaprine hydrochloride 10 mg oral tablet (2 sources)Muscle RelaxantStart: 00-00-8388fotxuifmblvfjuk 10 mg Tab Refills(s) 0 Start Date: 11/04/23 Status: OrdereddiazePAM 10 mg oral tablet (20 sources)BenzodiazepinediazePAM (Valium) 10 MG tablet Take by mouth every 8 (eight) hours if needed Activediclofenac sodium 50 mg delayed release oral tablet (20 sources)Nonsteroidal Anti-inflammatory DrugStart: 12-52-3055klxkpojtld sodium 50 mg Oral EC Tab Refills(s) 0 Start Date: 11/04/23 Status: Ordered febuxostat 40 mg oral tablet (20 sources)Xanthine Oxidase InhibitorStart: 51-19-3169lqpfzqmocb (Uloric) 40 MG tablet Indications: Type 2 diabetes mellitus with hyperglycemia, without long- term current use of insulin (HCC) , Morbid obesity (CMS-HCC) , 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) Take 1 tablet (40 mg) by mouth Daily 90 tablet 3 11/03/2024 ActiveStart: 04-25-2020 End: 25-72-0783eecjldwfeg (Uloric) 40 MG tablet Indications: Morbid obesity (CMS/HCC) , Polyneuropathy due to type2 diabetes mellitus (CMS/HCC) , Type 2 diabetes mellitus with hyperglycemia, without long-term current use of insulin (CMS/HCC) TAKE 1 TABLET BY MOUTH EVERY DAY 90 tablet 3 08/09/2024 Active Febuxostat Activegabapentin 300 mg oral capsule (20 sources)Anti-epileptic AgentStart: 92-66-1429cldc 1 capsule by mouth at bedtimegabapentin (Neurontin) 300 MG capsule Indications: 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) TAKE 1 CAPSULE BY MOUTH IN THE MORNING, EVENING AND BEFORE BEDTIME 270 capsule 03/07/2025 ActiveStart: 11-15-2020 End: 80-31-4892btss 1 capsule by mouth in the morning, then take 1 capsule by mouth in the evening, then take 1 capsule by mouth at bedtimegabapentin (Neurontin) 300 MG capsule Indications: 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) Take 1 capsule (300 mg) by mouth in the morning and 1 capsule (300 mg) in the evening and 1 capsule (300 mg) before bedtime. 270 capsule 12/07/2024 03/07/2025 DiscontinuedGabapentin Activelisinopril 5 mg oral tablet (20 sources)Angiotensin Converting Enzyme InhibitorStart: 27-54-2842tyefjhadyp 5 MG tablet Indications: Morbid obesity (CMS-HCC) , 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) , Type 2 diabetes mellitus with hyperglycemia, without long-term current use of insulin (HCC) TAKE 1 TABLET BY MOUTH EVERY DAY 90 tablet 3 06/07/2024 ActiveStart: 77-42-2224xcffnsfefx 5 MG tablet Indications: Morbid obesity (CMS/HCC) , 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) , Type 2 diabetes mellitus with hyperglycemia, without long-term current use ofinsulin (CMS/HCC) TAKE 1 TABLET BY MOUTH EVERY DAY 90 tablet 3 08/06/2023 ActiveLisinopril Ndtdme12 hr metFORMIN hydrochloride 500 mg extended release oral tablet (20 sources)BiguanideStart: 52-29-2463ovsFOSQVU XR (Glucophage-XR) 500 MG 24 hr tablet Indications: Morbid obesity (CMS-HCC) , 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) , Type 2 diabetes mellitus with hyperglycemia, without long-term current use of insulin ([facility]) TAKE 1 TABLET BY MOUTH EVERY DAY IN THE MORNING 90 tablet 3 06/07/2024 ActiveStart: 57-47-1205kmxKEOUSC XR (Glucophage- XR) 500 MG 24 hr tablet Indications: Morbid obesity (CMS/HCC) , 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) , Type 2 diabetes mellitus with hyperglycemia, without long-term current use of insulin (CMS/HCC) TAKE 1 TABLET BY MOUTH EVERY DAY IN THE MORNING 90 tablet 3 08/06/2023 ActiveStart: 04-25-2020 take 1 tablet by mouth once dailymetformin 500 mg ER Tab 500 mg = 1 tab(s), Oral, Daily, Refills(s) 0, High blood sugar Start Date: 04/25/20 Status: Ordered metFORMIN HCl Activenabumetone 500 mg oral tablet (1 source)Nonsteroidal Anti-inflammatory DrugStart: 60-88-7478irkq 1 tablet by mouth twice dailynabumetone 500 mg Tab 500 mg = 1 tab(s), Oral, BID, Refills(s) 0, Arthritis Start Date: 11/17/20 Status: OrderedOzempic (3 sources)Ozempic Activeprobenecid 500 mg oral tablet (20 sources)Start: 51-91-2337mdfy 1 tablet by mouth onceprobenecid (Benemid) 500 MG tablet Indications: Arthritis, gouty Take 1 tablet (500 mg) by mouth every 12 (twelve) hours 60 tablet 3 07/15/2024 Active End: 74-25-6475ddawwkcgco (Benemid) 500 MG tablet every 12 (twelve) hours. 07/15/2024 Discontinued (Reorder)take 1 tablet by mouth every twelve hours Probenecid 500 MG 1 tablet Orally Twice a day Active0.25 mg, 0.5 mg dose 1.5 ml semaglutide 1.34 mg/ml pen injector (3 sources)Start: 90-99-5911lbwjgu 0.5 mg by subcutaneous injection every week Ozempic 2 mg/1.5 mL (0.25 mg or 0.5 mg dose) subcutaneous solution 0.5 mg, SubCutaneous, qWeek, Refill(s) 0 Start Date: 04/24/21 Status: Ordered Semaglutide, 2 MG/DOSE, (Ozempic, 2 MG/DOSE,) 8 MG/3ML solution pen-injector (20 sources)Start: 77-06-2646rlcqhz 2 mg by subcutaneous injection every week Semaglutide, 2 MG/DOSE, (Ozempic, 2 MG/DOSE,) 8 MG/3ML solution pen-injector Indications: Type 2 diabetes mellitus with hyperglycemia, without long-term current use of insulin ([facility]) INJECT 2 MG SUBCUTANEOUSLY WEEKLY 9 mL 3 10/20/2024 ActiveStart: 29-46-5954alfnkz 2 mg by subcutaneous injection every week Semaglutide, 2 MG/DOSE, (Ozempic, 2 MG/DOSE,) 8 MG/3ML solution pen-injector Indications: Type 2 diabetes mellitus with hyperglycemia, without long-term current use of insulin ([facility]) INJECT 2 MG SUBCUTANEOUSLY WEEKLY 9 mL 3 10/20/2024 ActiveStart: 49-08-8530mnanbo 2 mg by subcutaneous injection every weekSemaglutide, 2 MG/DOSE, (Ozempic, 2 MG/DOSE,) 8 MG/3ML solution pen-injector Indications: Type 2 diabetes mellitus with hyperglycemia, without long-term current use of insulin (CMS/HCC) Inject 2 mg under the skin 1 (one) time per week 9 mL 3 08/26/2023 Activesulfamethoxazole 800 mg / trimethoprim 160 mg oral tablet (3 sources)Dihydrofolate Reductase Inhibitor Antibacterial, Sulfonamide AntimicrobialStart: 10-13-2024 End: 06-92-5181lvyi 1 tablet by mouth once in the morningsulfamethoxazole- trimethoprim (Bactrim DS) 800-160 MG per tablet Indications: Abscess of abdominal wall Take 1 tablet by mouth in the morning and at noon for 10 days 20 tablet 10/13/2024 10/23/2024 ActiveSyringe/Needle, Disp, (B-D 3CC LUER-HERMINIO SYR 23GX1 ) 23G X 1 3 ML misc (20 sources)Start: 48-84-0344Vshkflb/Needle, Disp, (B-D 3CC LUER-HERMINIO SYR 23GX1 ) 23G X 1 3 ML misc Indications: Male hypogonadism Inject 1 each into the shoulder, thigh, or buttocks every 14 (fourteen) days 50 each 11 10/04/2024 ActiveStart: 79-93-4420Ddjauyl/Needle, Disp, (B-D 3CC LUER-HERMINIO SYR 23GX1 ) 23G X 1 3 ML misc Indications: Male hypogonadism Inject 1 each into the shoulder, thigh, or buttocks every 14 (fourteen) days 50 each 11 12/24/2023 Active tadalafil 10 mg oral tablet (1 source)Phosphodiesterase 5 InhibitorStart: 59-49-4769qaumjfrdk 10 mg Tab See Instructions, PRN for erectile dysfunction, 1-2 tab(s) po 60mins prior to sexual activity. do not exceed 20mg/24hrs, # 20 tab(s), Refills(s) 3, Pharmacy: [facility]/pharmacy #[id number], 188, cm, 06/03/23 10:01:00 EST, Height/Length Dosing, 138, kg, 06/03/23 10:01:00 EST, Weight Dosing Start Date: 06/03/23 Status: Ordered1 ml testosterone cypionate 200 mg/ml injection (20 sources)AndrogenStart: 12-24-2023 End: 21-68-9565gdlmqwsbnjlq cypionate (Depo-Testosterone) 200 MG/ML injection Indications: Male hypogonadism Inject 0.5 mL (100 mg) into the shoulder, thigh, or buttocks every 14 (fourteen) days 10 mL 2 11/09/2024 ActiveTestosterone Cypionate 200 mg/mL intramuscular solution (3 sources)Start: 79-97-5254Hehxddysnakh Cypionate 200 mg/mL intramuscular solution Refills(s) 0 Start Date: 06/03/23 Status: OrderedtiZANidine 4 mg oral tablet (20 sources)Central alpha-2 Adrenergic Agonisttake 1 tablet by mouth every six hours as neededtiZANidine (Zanaflex) 4 MG tablet Take 4 mg by mouth every 6 (six) hours if needed for muscle spasms ActivetraMADol hydrochloride 50 mg oral tablet (20 sources)Opioid AgonistStart: 37-65-7650dggUDUBV 50 mg Tab Refills(s) 0 Start Date: 06/03/23 Status: OrderedtraMADol HCl ActivetraZODone hydrochloride 50 mg oral tablet (20 sources)Serotonin Reuptake InhibitorStart: 18-78-9803afjc 1 tablet by mouth at bedtimetraZODone (Desyrel) 50 MG tablet Indications: Primary insomnia Take 1 tablet (50 mg) by mouth at bedtime 30 tablet 3 12/27/2024 ActiveStart: 54-18-2309zzuy 1 tablet by mouth at bedtimetraZODone (Desyrel) 50 MG tablet Indications: Primary insomnia TAKE 1 TABLET BY MOUTH AT BEDTIME 30tablet 3 06/24/2024 ActiveStart: 74-69-7955xxoe 50 mg by mouth once daily at bedtime trazodone 50 mg, Oral, Once a day (at bedtime), Refills(s) 0 Start Date: 05/27/24 Status: OrderedStart: 62-04-8337gbye 1 tablet by mouth at bedtime traZODone (Desyrel) 50 MG tablet Indications: Primary insomnia Take 1 tablet (50 mg) by mouth at bedtime 30 tablet 3 02/26/2024 ActiveVitamin D3 (3 sources)Start: 33-19-6025Nrjzrsr D3 50,000 International_Unit, BID, Refills(s) 0, Prophylaxis Start Date: 04/25/20 Status: Ordered Completed/Discontinued Medications MedicationDrug Class(es)DatesSig (Normalized)Sig (Original)LORazepam 0.5 mg oral tablet (1 source)BenzodiazepineStart: 94-32-8279Dtwysu 0.5 mg Tab 1 mg = 2 tab(s), Oral, Once a day (at bedtime), take one tab 30 minutes prior to leaving house for biopsy. Take second one 30 minutes prior to scheduled time of biopsy if needed, # 2 tab(s), Refills(s) 0, Pharmacy: [facility]/pharmacy #[id number], 185.4, cm, 12/05/20 11:15:00 EDT, Height/Length Dosing, 153.8, kg, 12/05/20 11:15:00 EDT, Weight Dosing Start Date: 12/06/20 Status: Orderedtriamcinolone acetonide 40 mg/ml injectable suspension (4 sources)CorticosteroidStart: 42-42-9578Wylpxry-40 May, 40 mgStart: 34-16-4923Vztglky -40 mg Jul, 40 mg Problems Active Problems Problem ClassificationProblemDateDocumented DateEpisodic/ChronicAcquired foot deformities (5 sources)Hallux rigidus, left foot; Translations: [Hallux valgus (acquired), left foot]Onset: 52-41-5066KtnbitoKonwmd (1 source)Cough variant asthma; Translations: [COUGH VARIANT ASTHMA]Onset: 25-15-3855HbshqszMsmarmqc of urinary tract (10 sources)Calculus of kidney; Translations: [Kidney stone]Onset: 05-27-2022 EpisodicCataract (20 sources)Bilateral age-related nuclear cataracts; Translations: [Age-related nuclear cataract, bilateral]Onset: 888602-96-4932XwjcbfoNakzcjk kidney disease (2 sources)Chronic kidney disease stage 3A ; Translations: [Chronic kidney disease, stage 3a (CMS-HCC)]52-88-4527LhanlyjSnijiwx ulcer of skin (5 sources)Non-pressure chronic ulcer of other part of left foot limited to breakdown of skin; Translations: [Non-pressure chronic ulcer of other part of left foot with unspecified severity]Onset: 19-73-9159KjtboffSrnkfgrpozxdw of surgical procedures or medical care (5 sources)Other complications of procedures, not elsewhere classified, initial encounter; Translations: [OTH COMPLICATIONS PROC NEC INITIAL]Onset: 11-05-2022 EpisodicConditions associated with dizziness or vertigo (4 sources)Dizziness and giddiness; Translations: [DIZZINESS AND GIDDINESS] Onset: 70-13-3253LbqucywjTacyzzihhq heart failure; nonhypertensive (4 sources)Heart failure, unspecified; Translations: [HEART FAILURE UNSPECIFIED] Onset: 29-17-8193BvhjkffJcivsvze mellitus with complications (20 sources)Type 2 diabetes mellitus; Translations: [Type 2 diabetes mellitus with other specified complication]Onset: 51-78-4010MvsisqmVeoqzzim mellitus without complication (5 sources)Type 2 diabetes mellitus without complications; Translations: [TYPE 2 DM WITHOUT COMPLICATIONS]Onset: 47-55-5388UdjrirwLqnzqxmbf of lipid metabolism (20 sources)Mixed hyperlipidemia; Translations: [Pure hypercholesterolemia, unspecified]Onset: 69-18-8360NxigghkQyzddcmtp of teeth and jaw (1 source)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; Translations: [ADHESIONS AND ANKYLOSIS LEFT TMJ]Onset: 05-26-0616SxrwhjznFpgriadzo hypertension (3 sources)Essential (primary) hypertension; Translations: [Essential (primary) hypertension]Onset: 23-37-6897CbsbrbfJsglvxhqxclup symptoms and ill-defined conditions (3 sources)Ykuvldod00-44-8703NzttlfawWtnp and other crystal arthropathies (20 sources)Gout, unspecified; Translations: [Gouty arthropathy]Onset: 43-37-4960WzpldmkZgmxkawao (4 sources)Steatohepatitis; Translations: [Nonalcoholic steatohepatitis (HODGES)] Onset: 04-12-2021 Resolved: 69-45-3359MyipvgrFftziicrvso of prostate (8 sources)Benign prostatic hypertrophy with outflow obstruction; Translations: [Benign prostatic hyperplasia with lower urinary tract symptoms]Onset: 51-24-6327WhhhtebQjparwpupzngd mental health disorders (20 sources)Primary insomnia; Translations: [Primary insomnia]Onset: 01-12-2024 69-73-3746VlxmweaOqbubsvbl of unspecified nature or uncertain behavior (3 sources)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 79-41-2808BwpdhmayQzzpdrpxhvfehh (20 sources)Arthritis of right knee; Translations: [Unilateral primary osteoarthritis, right knee]Onset: 08-07-2021 Resolved: 75-68-3226SdcjuckBmonu aftercare (1 source)Patient encounter status; Translations: [Aftercare following joint replacement surgery]03-44-4088MktlacnWobsc aftercare (1 source)Aftercare following joint replacement surgery; Translations: [Aftercare following joint replacementsurgery]Onset: 98-11-2342IwzpitbFdbxw aftercare (1 source)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 block 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 oral hypoglycemic drugs; Translations: [GROUP DYNAMICS INSTRUCTOR USE ORAL HYPOGLYCEMIC DX]Onset: 76-28-6161FbaiseuvXgtpv aftercare (1 source)Other filler leaf cutter long (current) drug therapy; Translations: [OTH SENIOR LIVING CURRENT DRUG THERAPY]Onset: 88-02-9472MikfxfmpCgjwk aftercare (3 sources)Long-term current use of efxgapetcpxyz74-79-9004HubmomtiIxdry and unspecified benign neoplasm (3 sources)Benign neoplasm of descending -86-3737RndyowwvGexuw and unspecified benign neoplasm (3 sources)Benign neoplasm of sigmoid xokuw77-68-8697OrghcnpwOzgzy and unspecified benign neoplasm (3 sources)History of polyp of -42-2599LcajxecvCrzdc connective tissue disease (1 source)Presence of left artificial knee joint; Translations: [Presence of left artificial knee joint]Onset: 84-42-5667EwlpqdmQelpj connective tissue disease (4 sources)Pain in left foot; Translations: [PAIN IN LEFT FOOT]Onset: 12-03-2022 EpisodicOther connective tissue disease (1 source)Myalgia, other site; Translations: [MYALGIA OTHER SITE]Onset: 86-47-0262GyzvwlgfDsura connective tissue disease (4 sources)Arthrodesis status; Translations: [ARTHRODESIS STATUS]Onset: 94-14-1719SzfdmkmbLdbqr diseases of kidney and ureters (3 sources)Hydronephrosis co-occurrent and due to calculus of kidney and ureter 12-89-2393OqefhwzaCzqys endocrine disorders (3 sources)Testicular hypofunction; Translations: [Testicular hypofunction] Onset: 74-31-5302XzvqxjtVsooj endocrine disorders (20 sources)Male hypogonadism; Translations: [Testicular hypofunction]Onset: 558778-13-4689WfiljbnKklrm liver diseases (3 sources)Lesion of liver; Translations: [Liver disease, unspecified]Chronic Other liver diseases (1 source)Fatty (change of) liver, not elsewhere classified; Translations: [FATTY CHANGE LIVER NEC]Onset: 17-20-6586VdnotajCgeci liver diseases (15 sources)Non-alcoholic fatty liver; Translations: [Fatty (change of) liver, not elsewhere classified]Onset: 876625-73-4288ShbabefDpmmb liver diseases (13 sources)Non-alcoholic fatty liver disease without non-alcoholic steatohepatitis; Translations: [Fatty (change of) liver, not elsewhere classified]Onset: 287689-57-9441LximowqAafqb liver diseases (3 sources)Liver ycuz35-91-0825PiwhtzvmFieli lower respiratory disease (1 source)Personal history of pneumonia (recurrent); Translations: [PERSONAL HX OF PNEUMONIA RECURRENT]Onset: 67-56-1987LhyublxtYvnzc male genital disorders (6 sources)Male erectile dysfunction, unspecified; Translations: [Erectile dysfunction]Onset: 60-07-7330PaayvlzEmqsq nervous system disorders (1 source)Other chronic pain; Translations: [OTHER CHRONIC PAIN]Onset: 48-68-3716IqhihqfUzbug non-traumatic joint disorders (2 sources)Pain in right kneeOnset: 08-07-2021 Resolved: 83-39-9822PiohfpqqBmhdx nutritional; endocrine; and metabolic disorders (1 source)Morbid (severe) obesity due to excess calories; Translations: [MORBID SEVERE OBES D/T EXCESS RAFAEL]Onset: 54-81-6817UggvgeiFsttx nutritional; endocrine; and metabolic disorders (1 source)Body mass index (BMI) 39.0-39.9, adult; Translations: [BODY MASS INDEX BMI 39.0-39.9 ADULT]Onset: 23-86-5813VfwxehoQddke nutritional; endocrine; and metabolic disorders (3 sources)Body mass index 40+ - severely sfnyu53-13-3196BpgoeyvSrnji nutritional; endocrine; and metabolic disorders (8 sources)Morbid obesity; Translations: [Morbid (severe) obesity due to excess calories]Onset: 859237-89-3469ZqvuijrEizqk nutritional; endocrine; and metabolic disorders (20 sources)Severe obesity; Translations: [Class 2 severe obesity due to excess calories with serious comorbidity and body mass index (BMI) of 37.0 to 37.9 in adult ([facility])]Onset: 347940-89-2219LqoupukFaxcy skin disorders (1 source)Corns and callosities; Translations: [CORNS AND CALLOSITIES]Onset: 67-67-9125LjktoxwmAxdka upper respiratory disease (20 sources)Allergic rhinitis due to pollen; Translations: [Allergic rhinitis due to pollen]Onset: 016060-06-4783QuozabcWohmp upper respiratory infections (1 source)Acute upper respiratory infection, unspecified; Translations: [ACUTE UP RESPIRATORY INFECTION UNS]Onset: 69-23-2664XrhscwxiRjoyqytqk heart disease (6 sources)Personal history of pulmonary embolism; Translations: [H/O: pulmonary embolus]Onset: 34-48-6584PibtlmsqFytavbke codes; unclassified (1 source)Obstructive sleep apnea (adult) (pediatric); Translations: [OBSTRUCTIVE SLEEP APNEA]Onset: 97-77-3114IskmweiDvcutkfq codes; unclassified (20 sources)Obstructive sleep apnea syndrome; Translations: [Obstructive sleep apnea (adult) (pediatric)]Onset: 883734-02-7559ExrkvtiDmdotmzd codes; unclassified (1 source)Family history of cancer; Translations: [Family history of malignant neoplasm of prostate]Onset: 69-01-6603HugjwykzTghcxgtm codes; unclassified (3 sources)Family history of prostate -57-7292CmcacvfaEtspntoveoh; intervertebral disc disorders; other back problems (20 sources)Spondylosis without myelopathy or radiculopathy, lumbar region; Translations: [Unspecified thoracic, thoracolumbar and lumbosacral intervertebral disc disorder]Onset: 52-71-7279RkfxapxCzunioqmvhx; intervertebral disc disorders; other back problems (7 sources)Muscle spasm of back; Translations: [Backache]Onset: 07-31-2022 EpisodicUnclassified (4 sources)LOW BACK PAIN, UNSPECIFIED; Translations: [LOW BACK PAIN, UNSPECIFIED]Onset: 04-33-6610Vxjopkenuzcz (1 source)PERSONAL HISTORY OF COVID-19; Translations: [PERSONAL HISTORY OF COVID-19]Onset: 75-78-5565Qxxvyionebxt (1 source)COUGH, UNSPECIFIED; Translations: [COUGH, UNSPECIFIED]Onset: 69-45-6849Iugilijvfuqy (2 sources)Measurement zpzlago03-69-7105 Past or Other Problems Problem ClassificationProblemDateDocumented DateEpisodic/ChronicOther aftercare (4 sources)Encounter for surgical aftercare following surgery on the circulatory system; Translations: [ENC SURG AFTRCARE FLW SURG CIRC SYS]Onset: 02-18-2022 EpisodicOther aftercare (20 sources)Long-term current use of drug therapy; Translations: [Other care home (current) drug therapy]Onset: 319954-22-2658LbvbbwztDhtop and unspecified benign neoplasm (1 source)Hemangioma of intra-abdominal structures; Translations: [Liver hemangioma D18.03]Onset: 04-12-2021 Resolved: 84-61-0615BbzkwqgmQyvel connective tissue disease (1 source)Myalgia, unspecified site; Translations: [MYALGIA UNSPECIFIED SITE] Onset: 25-78-4563VatzhdmlLoprt connective tissue disease (4 sources)Other muscle spasm; Translations: [OTHER MUSCLE SPASM]Onset: 86-42-2577PbjvkupgWksbd male genital disorders (1 source)Disorder of prostate, unspecified; Translations: [DISORDER OF PROSTATE UNSPECIFIED]Onset: 16-65-0915HnkybmbcBfmkm non-traumatic joint disorders (3 sources)Pain in left knee; Translations: [PAIN IN LEFT KNEE]Onset: 08-07-2021 Resolved: 58-21-7342IrwjyksxVouer screening for suspected conditions (not mental disorders or infectious disease) (20 sources)Encounter for screening for malignant neoplasm of prostate; Translations: [Screening for malignant neoplasm done]Onset: 83-29-8053Gfmzaemv Phlebitis; thrombophlebitis and thromboembolism (9 sources)Phlebitis and thrombophlebitis of superficial vessels of right lower extremity; Translations: [Phlebitis and thrombophlebitis of superficial vessels of left lower extremity]Onset: 73-43-9802AbhtdljtIdeg and subcutaneous tissue infections (15 sources)Cellulitis of left toe; Translations: [Abscess of abdominal wall] Onset: 12-11-2022 Resolved: 960712-19-6269LjnjxqwoZxksdiaphiff (1 source)LOW BACK PAIN, UNSPECIFIED; Translations: [LOW BACK PAIN, UNSPECIFIED] Onset: 76-62-3005Gxibmifkhhdz (3 sources)Patient encounter osmapu24-83-6521Zpviqzgo veins of lower extremity (5 sources)Varicose veins of bilateral lower extremities with pain; Translations: [VARICOSE VNS MARIE LOW EXTREMW/PAIN]Onset: 07-12-6642Poptocpg Results Test NameValueInterpretationReference RangeFacilityXR KNEE LEFT (3 VIEWS)on 23-01-0327VGJD: XR KNEE LEFT (3 VIEWS) HISTORY: Aftercare following left knee joint replacement surgery COMPARISON: 08/23/2024 left knee IMPRESSION: FINDINGS/IMPRESSION: 1. 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 2. Severe osteoarthritic change right knee. Interpreted by: Russ Rodriguez Jr., MD Signed by: Russ Rodriguez Jr., MD 01/31/25 Final resultMHPTRadiology, Radiologist, MD - 02/01/2025 EXAM: XR KNEE LEFT (3 VIEWS) HISTORY: Aftercare following left knee joint replacement surgery COMPARISON: 08/23/2024 left knee IMPRESSION: FINDINGS/IMPRESSION: 1. 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 2. Severe osteoarthritic change right knee. Interpreted by: Russ Rodriguez Jr., MD Signed by: Russ Rodriguez Jr., MD 01/31/25 Final result NOMS HealthcareXR KNEE LEFT (3 VIEWS)Ordered By: Radiologist Radiology on 20-82-1075PYFOSaint John's [facility] Work Phone: XR KNEE LEFT (3 VIEWS)on 02-59-1372WC KNEE LEFT (3 VIEWS)EXAM: XR KNEE LEFT (3 VIEWS) HISTORY: Aftercare following left knee joint replacement surgery COMPARISON: 08/23/2024 left knee IMPRESSION: FINDINGS/IMPRESSION: 1. 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 2. Severe osteoarthritic change right knee. Interpreted by: Russ Rodriguez Jr., MD Signed by: Russ Rodriguez Jr., MD 01/31/25 Final resultNormSuburban Community Hospital & Brentwood HospitalRadiology Study observation (narrative) NOMS HealthcareXR Knee - left 3 Viewson 74-60-3802UYNUUZOC/IMPRESSION: 1. 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 2. Severe osteoarthritic change right knee. [facility] RIS CONSOLIDATEDEXAM: XR KNEE LEFT (3 VIEWS) HISTORY: Aftercare following left knee joint replacement surgery COMPARISON: 08/23/2024 left knee [facility] Russ Aguiar Jr., MD - 01/31/2025 EXAM: XR KNEE LEFT (3 VIEWS) HISTORY: Aftercare following left knee joint replacement surgery COMPARISON: 08/23/2024 left knee IMPRESSION: FINDINGS/IMPRESSION: 1. 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 2. Severe osteoarthritic change right knee. [facility] SystemsRadiology Study observation (narrative)Community Health SystemsXR Knee - left 3 ViewsOrdered By: Russ Rodriguez on 39-16-4682Qqu [facility] Work Phone: tbh MICROALB CREAT RATIO RANDOMon 04-74-1742FXXOZJQJRI URINE PWTNIX654.87 mg/dL20.00 - 300.00 mg/dLNOIA HealthcareMICROALBUM CREATININE RATIO UR19.6 mg/g0.0 - 29.9 mg/gNOMS HealthcareComment on above:NO MICROALBUMINURIA 0-29 MG/G CLINICAL MICROALBUMINURIA 30-300 MG/G MACROALBUMINURIA >300 MG/G MICROALBUMIN URINE RANDOM5 mg/dLNINF - 30.0 mg/dLNOIA HealthcareCLINISYNCNST. ANTHONY [facility] [place] HealthcareMHPT PSA, DIAGNOSTICon 93-48-4639QGIOIXZX SPECIFIC ANTIGEN DX1.32 ng/mLNINF - 4.00 ng/mLNOMS HealthcareCLINISYNCNOMS HealthcareXR Knee - left 1 or 2 Viewson 58-50-4389AfyJennings, [place] [address] XRay Report Signed Patient: CARLOS CARABALLO MR#: [id number] : 1955 Acct:[id number] Age/Sex: 69 / M ADM Date: 10/04/24 Loc: EC Attending Dr: Daniele Valencia M.D. Ordering Physician: Daniele Valencia M.D. Date of Service: 10/04/24 Procedure(s): XR knee LT 2V Accession Number(s): [id number] cc: Daniele Valencia M.D.; Tulio Ruggiero M.D. The [address] [address] Patient Name: CARLOS CARABALLO MRN: [id number] date: 1955 Sex: M Assigned Patient Location: Current Patient Location: Accession/Order Number: [id number] Exam Date: 10/04/2024 14:50 Report Date: 10/04/2024 14:51 At the request of: DANIELE VALENCIA MD Procedure: XR knee LT 2V LEFT KNEE - 2 views CLINICAL HISTORY: Aftercare following joint replacement surgery of left knee COMPARISON: Left knee 2 views FINDINGS: Left TKA without hardware complication. XR/XR knee LT 2V IMPRESSION: NO HARDWARE COMPLICATION. Impression dictated by: Rehan Sheppard Jr. DRustyORusty10/04/2024 2:51 PM Dictation Location: [place] [address] Electronically authenticated by: [id number] Y Date: 10/04/2024 14:51 Dictated By: Rehan Sheppard M.D. Signed By: 10/04/24 1453 DD/ 1451 TD/TT: Produce Clerk:SIDDHARTHAadiolelmer Radiologist, - 10/04/2024 The [place] [id number] XRay Report Signed Patient: CARLOS CARABALLO MR#: [id number] : 1955 Acct:[id number] Age/Sex: 69 / M ADM Date: 10/04/24 Loc: EC Attending Dr: Daniele Valencia M.D. Ordering Physician: Daniele Valencia M.D. Date of Service: 10/04/24 Procedure(s): XR knee LT 2V Accession Number(s): [id number] cc: Daniele Valencia M.D.; Tulio Ruggiero M.D. [place] [id number] Patient Name: CARLOS CARABALLO MRN: [id number] date: 1955 Sex: M Assigned Patient Location: Current Patient Location: Accession/Order Number: [id number] Exam Date: 10/04/2024 14:50 Report Date: 10/04/2024 14:51 At the request of: DANIELE VALENCIA MD Procedure: XR knee LT 2V LEFT KNEE - 2 views CLINICAL HISTORY: Aftercare following joint replacement surgery of left knee COMPARISON: Left knee 2 views FINDINGS: Left TKA without hardware complication. XR/XR knee LT 2V IMPRESSION: NO HARDWARE COMPLICATION. Impression dictated by: Rehan Sheppard Jr., D.O.10/04/2024 2:51 PM Dictation Location: [place] [address] Electronically authenticated by: [id number] Y Date: 10/04/2024 14:51 Dictated By: Rehan Sheppard M.D. Signed By: 10/04/24 1453 DD/ 1451 TD/TT: Produce Clerk: NOMS HealthcareRadiology Study observation (narrative)NOM HealthcareXR Knee - left 1 or 2 ViewsOrdered By: Radiologist Radiology on 71-96-4508PCDD [facility] Work Phone: XR Knee - left 1 or 2 Viewson 65-37-3793[place] [address] XRay Report Signed Patient: CARLOS CARABALLO MR#: [id number] : 1955 Acct:[id number] Age/Sex: 69 / M ADM Date: 09/06/24 Loc: EC Attending Dr: Daniele Valencia M.D. Ordering Physician: Daniele Valencia M.D. Date of Service: 09/06/24 Procedure(s): XR knee LT 2V Accession Number(s): [id number] cc: Daniele Valencia M.D.; Tulio Ruggiero M.D. [place] [id number] Patient Name: CARLOS CARABALLO MRN: [id number] date: 1955 Sex: M Assigned Patient Location: Current Patient Location: Accession/Order Number: [id number] Exam Date: 09/06/2024 14:51 Report Date: 09/06/2024 14:54 At the request of: DANIELE VALENCIA MD Procedure: XR knee LT 2V LEFT [...] Brunilda Rogers M.D.09/06/2024 2:54 PM Dictation Location: [place] [address] Electronically authenticated by: [id number] Y Date: 09/06/2024 14:54 Dictated By: Brunilda Rogers M.D. Signed By: 09/06/24 1456 DD/ 1454 TD/TT: Produce Clerk:MARTHAHRadiology, Radiologist, - 09/06/2024 [place] [address] XRay Report Signed Patient: CARLOS CARABALLO MR#: [id number] : 1955 Acct:[id number] Age/Sex: 69 / M ADM Date: 09/06/24 Loc: Attending Dr: Daniele Valencia M.D. Ordering Physician: Daniele Valencia M.D. Date of Service: 09/06/24 Procedure(s): XR knee LT 2V Accession Number(s): [id number] cc: Daniele Valencia M.D.; Tulio Ruggiero M.D. The [place] [id number] Patient Name: CARLOS CARABALLO MRN: [id number] date: 1955 Sex: M Assigned Patient Location: Current Patient Location: Accession/Order Number: [id number] Exam Date: 09/06/2024 14:51 Report Date: 09/06/2024 14:54 At the request of: DANIELE VALENCIA MD Procedure: XR knee LT 2V LEFT [...] Brunilda Rogers M.D.09/06/2024 2:54 PM Dictation Location: [place] [address] Electronically authenticated by: [id number] Y Date: 09/06/2024 14:54 Dictated By: Brunilda Rogers M.D. Signed By: 09/06/24 1456 DD/ 1454 TD/TT: Produce Clerk: NOMS HealthcareRadiology Study observation (narrative)NOMS HealthcareXR Knee - left 1 or 2 ViewsOrdered By: Radiologist Radiology on 05-73-8991QJDS Healthcare Work Phone: aLL BASIC METABOLIC PANELon 49-29-5965Qlizx gap [Moles/Vol]14.3 mmol/LNOMS HealthcareCalcium [Mass/Vol]7.7 mg/dLLow8.5 - 10.1 mg/dLNOMS HealthcareChloride [Moles/Vol]108 mmol/LHigh98 - 107 mmol/LNOMS HealthcareCO2 [Moles/Vol]25.4 mmol/L21.0 - 32.0 mmol/LNOMS HealthcareCreatinine [Mass/Vol]1.62 mg/dLHigh0.70 - 1.30 mg/dLNOMS HealthcareGFR/1.73 sq M.predicted CKD-EPI (S/P/Bld) [Vol rate/Area]52Low>=60 mL/min/1.73m 2NOMS HealthcareGlucose [Mass/Vol]112 mg/wIOtgq00 - 106 mg/dLNOIA HealthcareInterpretation and review of laboratory resultsAbnormalNOMS HealthcarePotassium [Moles/Vol]4.7 mmol/L3.5 - 5.1 mmol/LNOMS HealthcareSodium [Moles/Vol]143 mmol/L136 - 145 mmol/LNOMS HealthcareTBH EGFR-NON AF SBFGZEEY87Zml>=60 mL/min/1.73m 2NOMS HealthcareUrea nitrogen [Mass/Vol]28 mg/dLHigh7.0 - 18.0 mg/dLNOIA HealthcareUrea nitrogen/Creatinine [Mass ratio]17.3 mg/mgNOIA HealthcareCLINISYNCNST. ANTHONY HOSPITAL [facility] [place] [facility] HealthcareALL CBC WITH AUTO DIFFon 42-19-1669IXNUGUFTP ABSOLUTE BHKQ9NEHG HealthcareBasophils/100 WBC (Bld)0.6 %0.2 - 2.0 %NOMS HealthcareEosinophils/100 WBC (Bld)4.9 %0.9 - 7.0 %NOMS HealthcareErythrocyte distribution width (RBC) [Ratio]13.5 %11.0 - 15.0 %NOMS HealthcareHematocrit (Bld) [Volume fraction]43.4 %42.0 - 54.0 %NOMFulton State HospitalHemoglobin (Bld) [Mass/Vol]14.7 g/dL14.0 - 18.0 g/dLNOIA HealthcareIMMATURE GRANULOCYTES ABS AUTO0.03NOIA HealthcareImmature granulocytes/100 WBC (Bld)0.4 %0.0 - 0.5 %NOM HealthcareInterpretation and review of laboratory resultsAbnormalNOIA HealthcareLYMPHOCYTES ABSOLUTE AUTO2.2 NOMFulton State HospitalLymphocytes/100 WBC (Bld)30.6 %20.5 - 60.0 %[facility] WashingtonH (RBC) [Entitic mass]32.8 pg25.9 - 34.0 pgNOSamaritan HospitalHC (RBC) [Mass/Vol] 33.9 g/dL29.9 - 35.2 g/dLSaint John's Aurora Community HospitalMCV (RBC) [Entitic vol]96.9 fQGeko13.0 - 94.0 fLNOSaint Francis Hospital & Health ServicesMONOCYTES ABSOLUTE AUTO0.6NOMS HealthcareMonocytes/100 WBC (Bld)8.3 %1.7 - 12.0 %NOMS HealthcareNEUTROPHILS ABSOLUTE AUTO3.9N[facility] Healthcare Neutrophils/100 WBC (Bld)55.2 %43.0 - 75.0 %NOMS HealthcarePlatelet mean volume (Bld) [Entitic vol]8.8 fLLow9.5 - 13.5 fLNOMS HealthcareTBH EO #0.4NOMS HealthcareTBH [id number] HealthcareTBH RBC4.48LowNOMS HealthcareTBH WBC7.1NOMS HealthcareCLINISYNCNOMS HealthcareXR Knee - left 4 Viewson 00-09-9600OkkJ[place], [place] [address] XRay Report Signed Patient: CARLOS CARABALLO MR#: [id number] : 1955 Acct:[id number] Age/Sex: 69 / M ADM Date: 08/23/24 Loc: SURGOUT Attending Dr: Daniele Valencia M.D. Ordering Physician: Daniele Valencia M.D. Date of Service: 08/23/24 Procedure(s): XR knee LT 4V Accession Number(s): [id number] cc: Daniele Valencia M.D.; Tulio Ruggiero M.D. [place] [address] Patient Name: CARLOS CARABALLO MRN: [id number] date: 1955 Sex: M Assigned Patient Location: [facility] Current Patient Location: [facility] Accession/Order Number: [id number] Exam Date: 08/23/2024 12:30 Report Date: 08/23/2024 13:05 At the request of: DANIELE VALENCIA Procedure: XR knee LT 4V EXAMINATION: XR knee LT 4V HISTORY: Post op in pacu COMPARISON: No relevant comparison available. FINDINGS: BONES: Total joint replacement with the orthopedic components appearing seated in anatomic alignment. SOFT TISSUES: Postprocedural subcutaneous and joint air/fluid OTHER: Negative. XR/XR knee LT 4V IMPRESSION: 1. Total joint replacement with expected postsurgical findings. Electronically authenticated by: RACHEAL STEELE Date: 08/23/2024 13:05 Dictated By: Racheal Steele M.D. Signed By: 08/23/24 1308 DD/ 04 TD/TT: Produce Clerk:SIDDHARTHAadiologLizeth alvarez, - 08/23/[address] [address] XRay Report Signed Patient: CARLOS CARABALLO MR#: [id number] : 1955 Acct:[id number] Age/Sex: 69 / M ADM Date: 08/23/24 Loc: SURGOUT Attending Dr: Daniele Valencia M.D. Ordering Physician: Daniele Valencia M.D. Date of Service: 08/23/24 Procedure(s): XR knee LT 4V Accession Number(s): [id number] cc: Daniele Valencia M.D.; Tulio Ruggiero M.D. The [address] [address] Patient Name: CARLOS CARABALLO MRN: [id number] date: 1955 Sex: M Assigned Patient Location: [facility] Current Patient Location: [facility] Accession/Order Number: [id number] Exam Date: 08/23/2024 12:30 Report Date: 08/23/2024 13:05 At the request of: DANIELE VALENCIA Procedure: XR knee LT 4V EXAMINATION: XR knee LT 4V HISTORY: Post op in pacu COMPARISON: No relevant comparison available. FINDINGS: BONES: Total joint replacement with the orthopedic components appearing seated in anatomic alignment. SOFT TISSUES: Postprocedural subcutaneous and joint air/fluid OTHER: Negative. XR/XR knee LT 4V IMPRESSION: 1. Total joint replacement with expected postsurgical findings. Electronically authenticated by: RACHEAL STEELE Date: 08/23/2024 13:05 Dictated By: Racheal Steele M.D. Signed By: 08/23/248 DD/ 04 TD/TT: Produce Clerk: ROMEL HealthcareRadiology Study observation (narrative)NOMS HealthcareXR Knee - left 4 ViewsOrdered By: Radiologist Radiology on 67-77-3515WH[facility] Work Phone: aLL TYPE AND SCREENon 43-33-5623FSE and Rh group Nom (Bld)Blood group B Rh(D) positiveFirstHealth Moore Regional Hospital - RichmondALL TYPE AND SCREENon 48-23-8404DYE and Rh group Nom (Bld)Blood group B Rh(D) positiveFirstHealth Moore Regional Hospital - RichmondXR Knee Standing AP Bilateralon 64-40-3851WC Knee Standing AP BilateralEXAM: XR Knee Standing AP Bilateral HISTORY: Osteoarthritis [...] Is Signed, Electronically Signed in Other Vendor System)Normal [facility] HospitalMRI Knee Surg.Navigate or Plan ONLY Lefton 55-55-6976CTJ Knee Surg.Navigate or Plan ONLY LeftHISTORY: Arthritis of the left knee. Preoperative planning. [...] Is Signed, Electronically Signed in Other Vendor System)Normal [facility] HospitalXR Knee 1 or 2 Views Lefton 04-65-9646UZ Knee 1 or 2 Views LeftEXAM: Left knee HISTORY: . pain in left [...] Is Signed, Electronically Signed in Other Vendor System)Normal [facility] HospitalALL CBC WITH AUTO DIFFon 27-82-2407FGKHKSXAZ ABSOLUTE AUTO0.1NOMS HealthcareBasophils/100 WBC (Bld)0.9 %0.2 - 2.0 %NOMS HealthcareEosinophils/100 WBC (Bld)4.9 %0.9 - 7.0 %NOMS HealthcareErythrocyte distribution width (RBC) [Ratio]13.7 %11.0 - 15.0 %NOMS HealthcareHematocrit (Bld) [Volume fraction]44.7 %42.0 - 54.0 %NOMS HealthcareHemoglobin (Bld) [Mass/Vol]14.9 g/dL14.0 - 18.0 g/dLNOIA HealthcareIMMATURE GRANULOCYTES ABS AUTO 0.02NOMS HealthcareImmature granulocytes/100 WBC (Bld)0.3 %0.0 - 0.5 %NOMS HealthcareInterpretation and review of laboratory resultsAbnormalNOIA Healthcare LYMPHOCYTES ABSOLUTE AUTO1.5NOMS HealthcareLymphocytes/100 WBC (Bld)23 %20.5 - 60.0 %NOMS [facility] Hospital Of ColumbusMCH (RBC) [Entitic mass]32.3 pg25.9 - 34.0 pgNOSamaritan HospitalHC (RBC) [Mass/Vol]33.3 g/dL29.9 - 35.2 g/dLNOSamaritan HospitalV (RBC) [Entitic vol]97 nPTskh28.0 - 94.0 fLNOMS HealthcareMONOCYTES ABSOLUTE AUTO0.5 NOMS HealthcareMonocytes/100 WBC (Bld)7.9 %1.7 - 12.0 %[facility] NEUTROPHILS ABSOLUTE AUTO4.1NOMS HealthcareNeutrophils/100 WBC (Bld)63 %43.0 - 75.0 %NOMS HealthcarePlatelet mean volume (Bld) [Entitic vol]8.8 fLLow9.5 - 13.5 fLNOMS HealthcareTBH EO #0.3NOMS HealthcareTBH NIB975MORE HealthcareTBH RBC4.61 LowNOMS HealthcareTBH WBC6.6NOMS HealthcareCLINISYNCNOMS HealthcareTBH UA (CLEAN/CATCH) LINING LAYER/MICRO IF IND.on 70-24-2297SHLSARWGP URINENegativeNEGATIVENOMS HealthcareBLOOD URINENegativeNEGATIVENOMS HealthcareClarity (U)CLEARCLEARNOMS HealthcareColor (U)LT. YELLOWYELLOWNOMS HealthcareGLUCOSE URINE UANegative NEGATIVE mg/dLNOIA HealthcareKetones Ql (U)NegativeNEGATIVE mg/dLNOIA Healthcare Leukocyte esterase Test strip Ql (U)NegativeNEGATIVENOMS HealthcareNITRITE URINE NegativeNEGATIVENOMS HealthcarepH (U)6.0 [pH]5.0 - 9.0NOMS HealthcarePROTEIN URINENegativeNEG/TRACE mg/dLNOIA HealthcareSPECIFIC GRAVITY URINE1.0251.005 - 1.025NOMS HealthcareURINE MICROSCOPIC INDICATEDNONOMS HealthcareUROBILINOGEN URINE0.2 EU/dL0.2 - 1.0 EU/dLNOMS HealthcareCLINISYNCNOMS HealthcareReminderson 51-64-1794DamgrwhptIdzzarhfj From: Cyndi Montano To: EU - Administrative; Sent: 06/04/2024 12:06:06 EST Show up: 06/04/2024 12:05:00 EST Subject: Ambulatory Reminder Due Date/Time: 05/28/2025 12:05:00 EST Reminder/Recall Patient needs scheduled for a 1 yr f/u, PCP to check PSA. Due back in 06/07 M to call [address] [facility]Mount [facility] Mary HospitalUrology Office/Clinic Noteon 38-51-5069Bblmsnm Office/Clinic NoteUrology Office/Clinic Note Chief Complaint 5mo f/u HPI Staff 68 year old male here for 5 month with KUB. Pt unable to provide urine sample today, states he usedthe restroom prior to coming to appt. Denies [...] No UTIs. Wishes to continue monitoring. Does notwish to pursue lithotripsy. -KUB 1 yr. Stone prevention diet. Ordered: Body Mass Index (BMI) documented 3008F Complex E&M Add on G2211 Current tobacco non-user 1036F Depression Screening Negative 3352F E&M of Est. Patient Moderate 30-39 Min 17105 Influenza immunization status assessed 1030F Medication list [...] E&M of Est. Patient Moderate 30-39 Min 84231 3. Hypogonadism male (E29.1: Testicular hypofunction) Managed by PCP. On T injections. Ordered: Complex E&M Add on G2211 E&M of Est. Patient Moderate 30-39 Min 89213 4. ED (erectile dysfunction) (N52.9: Male erectile dysfunction, unspecified) Failed Tadalafil. A lot of neuropathy. Not interested in additional tx. Ordered: Complex E&M Add on G2211 E&M of Est. Patient Moderate 30-39 Min 45026 Follow-up With When Contact Information ABIODUN HERNANDEZ PA-C, URL Within 1 year Additional Instructions: Patient Education Kidney Stones, Ecdi-ja-Aruy Problem List/Past Medical History Ongoing Abnormal abdominal [...] BPH with urinary obstructio (more content not included)...[facility] HospitalComment on above:Result Comment: Electronically Signed By: ABIODUN HERNANDEZ PA-C\.br\Date and Time Signed: 05/27/2409:57 ESTXR LSPINE W_OBLS AND FLEX_EXTon 44-63-5524PF LSPINE W_OBLS AND FLEX_EXTEXAMINATION: XR LSPINE W_OBLS AND FLEX_EXT HISTORY: Lumbar [...] no dynamic instability Electronically authenticated by: RACHEAL STEELE Date: 2022-12-05 09:46[facility] AUTO DIFFon 88-17-0306HJUL #0.1 103/ulNormal0.0-0.1Kettering HealthComment on above:Performed By: #### POCGLUC #### [facility] [address] [place] [address] Dr. Juliet Dobbinssophils/100 WBC (Bld)0.7 %Normal0.2-2.0The [facility] Comment on above:Performed By: #### POCGLUC #### [facility] [address] [place] [address] Dr. Juliet Padgett #0.4 103/ulNormal0.0-0.7The [facility] HospitalComment on above: Performed By: #### POCGLUC #### [facility] [address] [place] [address] Dr. Juliet Huddlestonosinophils/100 WBC (Bld)5.3 %Normal0.9-7.0The [facility] Comment on above:Performed By: #### POCGLUC #### [facility] [address] [place] [address] Dr. Juliet Huddlestonrythrocyte distribution width (RBC) [Ratio]14.0 %Xweffq61.0-15.0 The [facility] HospitalComment on above:Performed By: #### POCGLUC #### [facility] [address] [place] [address] Dr. Juliet WilkesHematocrit (Bld) [Volume fraction]43.6 %Dudyzc50.0-54.0The [facility] HospitalComment on above:Performed By: #### POCGLUC #### [facility] [address] [place] [address] Dr. Juliet WilkesHemoglobin (Bld) [Mass/Vol]14.9 g/gNIcpudz13.0-18.0The [facility] HospitalComment on above:Performed By: #### POCGLUC #### [facility] [address] [place] [address] Dr. Juliet Cervantes #0.03 10e3/ulNormal0.00-0.03The [facility] HospitalComment on above:Performed By: #### POCGLUC #### [facility] [address] [place] [address] Dr. Juliet Cervantes %0.4 %Normal0.0-0.5The [facility] HospitalComment on above: Performed By: #### POCGLUC #### [facility] [address] [place] [address] Dr. Juliet Arambula #2.0 103/ulNormal1.2-3.8The [facility] HospitalComment on above:Performed By: #### POCGLUC #### [facility] [address] [place] [address] Dr. Juliet Westhocytes/100 WBC (Bld)29.3 %Redgtq56.5-60.0The [facility] HospitalComment on above:Performed By: #### POCGLUC #### [facility] [address] [place] [address] Dr. Juliet Melendez DIFF REQNONormalThe [facility] HospitalComment on above: Performed By: #### POCGLUC #### [facility] [address] [place] [address] Dr. Juliet Valderrama (RBC) [Entitic mass]33.4 mpHpcdpo93.9-34.0The [facility] HospitalComment on above:Performed By: #### POCGLUC #### [facility] [address] [place] [address] Dr. Juliet Valderrama (RBC) [Mass/Vol]34.2 g/kZBonsww62.9-35.2The [facility] HospitalComment on above:Performed By: #### POCGLUC #### [facility] [address] [place] [address] Dr. Juliet Valderrama (RBC) [Entitic vol]97.8 fLCritically high80.0-94.0The [facility] HospitalComment on above:Performed By: #### POCGLUC #### [facility] [address] [place] [address] Dr. Juliet Dumont #0.7 103/ulNormal0.3-0.8The [facility] HospitalComment on above:Performed By: #### POCGLUC #### [facility] [address] [place] [address] Dr. Juliet Maciasocytes/100 WBC (Bld)9.9 %Normal1.7-12.0The [facility] Comment on above:Performed By: #### POCGLUC #### [facility] [address] [place] [address] [address] Juliet StoryUT #3.7 103/ulNormal1.4-6.5The [facility] HospitalComment on above:Performed By: #### POCGLUC #### [facility] [address] [place] [address] [address] Juliet Storyutrophils/100 WBC (Bld)54.4 %Iochht69.0-75.0The [facility] HospitalComment on above:Performed By: #### POCGLUC #### [facility] [address] [place] [address] [address] Juliet WilkesPlatelet mean volume (Bld) [Entitic vol]9.0 fLCritically low 9.5-13.5The [facility] HospitalComment on above:Performed By: #### POCGLUC #### [facility] [address] [place] [address] Dr. Juliet WilkesPLT211 103/vrYaepvx413-837Isi [facility] HospitalComment on above: Performed By: #### POCGLUC #### [facility] [address] [place] [address] Dr. Juliet WilkesRBC4.46 106/ulCritically low4.70-6.10The [facility] HospitalComment on above:Performed By: #### POCGLUC #### [facility] [address] [place] [address] Dr. Juliet WilkesWBC6.8 103/ulNormal4.0-11.0The [facility] HospitalComment on above: Performed By: #### POCGLUC #### [facility] [address] [place] [address] Dr. Juliet WilkesCHILDREN'S HEALTHC[facility] SPALDING GLUCOSEon 46-46-3476Ahpzjtw [Mass/Vol]100 mg/dL Vjqkiv44-096Ozd [facility] HospitalComment on above:Performed By: #### POCGLUC #### [facility] [address] [place] [address] Dr. Juliet WilkesGlucose [Mass/Vol]94 mg/eMBozfbv85-790Tat [facility] Comment on above:Performed By: #### A1C #### [facility] [address] [place] [address] [address] Juliet WilkesPROF CHEM 8 (BAS METB)on 33-90-5141Bxqsk gap [Moles/Vol]14.0 mmol/LNormalKettering HealthComment on above:Performed By: #### BMP #### [facility] [address] [place] [address] [address] Juliet WilkesCalcium [Mass/Vol]9.0 mg/dLNormal8.5-10.1[facility] Comment on above:Performed By: #### BMP #### [facility] [address] [place] [address] [address] Juliet WilkesChloride [Moles/Vol]107 mmol/PBargob29-004GieKettering Health Comment on above:Performed By: #### BMP #### [facility] [address] [place] [address] Dr. Juliet WilkesCO2 [Moles/Vol]28.7 mmol/HUqiavu82.0-32.0[facility] Comment on above:Performed By: #### BMP #### [facility] [address] [place] [address] Dr. Juliet WilkesCreatinine [Mass/Vol]1.41 mg/dLCritically high0.70-1.30Kettering HealthComment on above:Performed By: #### BMP #### [facility] [address] [place] [address] [address] Juliet HuddlestonGFR-AF BURMESE>60Normal>=60The [facility]enan Private HospitalComment on above:Performed By: #### BMP #### [facility] [address] [address] [address] Juliet HuddlestonGFR-NON AF YLYROQKD64 mL/min/1.84y2Uqjslbmrqb low>=60Kettering HealthComment on above:Performed By: #### BMP #### [facility] [address] [place] [address] Dr. Juliet WilkesGlucose [Mass/Vol]95 mg/sWBpumek63-751RuyKettering Health Comment on above:Performed By: #### BMP #### [facility] [address] [place], [place] [address] Dr. Juliet WilkesPotassium [Moles/Vol]4.7 mmol/LNormal3.5-5.1[facility] Comment on above:Performed By: #### BMP #### [facility] [address] [place], [place] [address] Dr. Juliet WilkesSodium [Moles/Vol]145 mmol/MGyxgqb930-037Sxs [facility] Comment on above:Performed By: #### BMP #### [facility] [address] [place], [place] [address] Dr. Juliet WilkesUrea nitrogen [Mass/Vol]25.0 mg/dLCritically high7.0-18.0Kettering HealthComment on above:Performed By: #### BMP #### [facility] [address] [place], [place] [address] Dr. Juliet Yee nitrogen/Creatinine [Mass ratio]17.7 mg/mgNormalThe [facility]an Private HospitalComment on above:Performed By: #### BMP #### [facility] [address] [place], [place] [address] Dr. Juliet Watson Visiton 86-61-8680Prpjzf-up [id number] Carlos Caraballo 1955 M Date Provider Department Center 07/31/2022 BENTLEY MENDOZA [facility] Family History Problem Relation Age of Onset Stroke Father Family Status - Relation Status Age at Father Level of Service:97645 [place] OFFICE/OUTPATIENT ESTABLISHED MOD MDM 30-39 MIN Reason for Visit and Comments: Hyperlipidemia [182] Hypertension [000371] history of PE [Other]NormalUnTogus VA Medical CenterCULTURE WOUNDon 69-66-0680CDDKRTN WOUNDCulture Observations: No growth of anaerobes at 72 hours. Isolate 1 Stenotrophomonas maltophilia Moderate growth of ORGANISM 1 Stenotrophomonas maltophilia ANTIBIOTIC M.I.C RX STATUS Levofloxacin 1 S F Trimethoprim/Sulfamethoxazole <=20 S FNormalKettering HealthComment on above:Performed By: #### WOUNDCX ####[facility] [address] [place], [place] [address]PjDr. Juliet WilkesGLYCOHEMOGLOBIN A1Con 78-39-2216SPV RECOMMENDATIONSEE BELOWAdams County HospitalComment on above:Result Comment: ADA RECOMMENDED LIMIT 4.0 - 6.0 ADA THERAPEUTIC TARGET < 7.0 ACTION SUGGESTED > 7.0Performed By: #### A1C #### [facility] [address] [address] [address] Juliet WilkesGlucose [Mass/Vol]111 mg/dLNoMiami Valley HospitalComment on above:Performed By: #### A1C #### [facility] [address] [address] [address] Juliet WilkesHbA1c (Bld) [Mass fraction]5.5 %Normal4.5-6.2The [facility]an Private HospitalComment on above:Performed By: #### A1C #### [facility] [address] [address] [address] Juliet JoyCARDIChio M/2D COMPLETEon 34-41-4546CQDMOUXLMC M/2D COMPLETE Patient: CARLOS CARABALLO Exam Date: 06/28/2022 : 1955 Gender:M Ordering : DR LOLY BARNARD M.D. Admission #: [id number] Family : Order #: [id number] CLICK HERE TO VIEW EXAM ECHOCARDIOGRAM REPORT [...] by: Scout Mcmanus M.D. on 07/04/2022 at 13:38[facility] County HospitalURIC ACID SERUMon 23-76-6296Uflzw [Mass/Vol]6.9 mg/dLNormal3.5-7.2K[facility]tering HealthComment on above:Performed By: #### A1C #### [facility] [address] [place] [address] Dr. Juliet WilkesXR KUB 1 VIEWon 29-41-3945XV KUB 1 VIEWEXAMINATION: XR KUB 1 VIEW HISTORY: Kidney stone COMPARISON: 04/17/2020 FINDINGS: KIDNEY/URETER - RIGHT: r 2 nephroliths measuring up to 10 mm KIDNEY/URETER - LEFT: No visible renal or ureteral calcifications. PELVIS: No visible ureteral calcifications. Any visible calcifications favor phleboliths. BOWEL: No abnormal dilation or deviation. BONES: Degenerative changes OTHER: Negative. No abnormal gaseous collections. IMPRESSION: Right nephrolithiasis Electronically authenticated by: RACHEAL STEELE Date: 2022-05-28 07:31[facility] HospitalCBC AUTO DIFFon 75-00-4578RYDC #0.1 103/ulNormal0.0-0.1K[facility]tering HealthComment on above:Performed By: #### CBC #### [facility] [address] [place] [address] Dr. Juliet Dobbinssophils/100 WBC (Bld)0.9 %Normal0.2-2.0[facility] Comment on above:Performed By: #### CBC #### [facility] [address] [place] [address] Dr. Juliet Padgett #0.4 103/ulNormal0.0-0.7The [facility]an Private HospitalComment on above: Performed By: #### CBC #### [facility] [address] [place] [address] Dr. Juliet Huddlestonosinophils/100 WBC (Bld)5.2 %Normal0.9-7.0[facility] Comment on above:Performed By: #### CBC #### [facility] [address] [place] [address] Dr. Juliet Huddlestonrythrocyte distribution width (RBC) [Ratio]13.6 %Qhodsw28.0-15.0 [facility] Hospitalment on above:Performed By: #### CBC #### [facility] [address] [place] [address] Dr. Julite WilkesHematocrit (Bld) [Volume fraction]40.5 %Critically low42.0-54.0 The [facility] Private HospitalCommclaren greater lansing hospital on above:Performed By: #### CBC #### [facility] [address] [place] [address] Dr. Juliet WilkesHemoglobin (Bld) [Mass/Vol]13.7 g/dLCritically low14.0-18.0The [facility] Private HospitalComment on above:Performed By: #### CBC #### [facility] [address] [place] [address] Dr. Juliet Cervantes #0.02 10e3/ulNormal0.00-0.03The [facility] Private HospitalCommclaren greater lansing hospital on above:Performed By: #### CBC #### [facility] [address] [place] [address] Dr. Juliet Cervantes %0.3 %Normal0.0-0.5The [facility] HospitalCommclaren greater lansing hospital on above: Performed By: #### CBC #### [facility] [address] [place] [address] Dr. Juliet Arambula #1.9 103/ulNormal1.2-3.8The [facility] Private HospitalCommclaren greater lansing hospital on above:Performed By: #### CBC #### [facility] [address] [place] [address] Dr. Juliet Westhocytes/100 WBC (Bld)27.7 %Dkfmuj30.5-60.0The [facility] Private HospitalCommclaren greater lansing hospital on above:Performed By: #### CBC #### [facility] [address] [place] [address] Dr. Juliet McdanielUAL DIFF REQNONormalThe Ke[facility]an Private HospitalComment on above: Performed By: #### CBC #### [facility] [address] [place] [address] Dr. Juliet Yanes (RBC) [Entitic mass]33.3 fkUendkt46.9-34.0The [facility]an Private HospitalComment on above:Performed By: #### CBC #### [facility] [address] [place] [address] Dr. Juliet Valderrama (RBC) [Mass/Vol]33.8 g/mQTfphac67.9-35.2The [facility]an Private HospitalComment on above:Performed By: #### CBC #### [facility] [address] [place] [address] Dr. Juliet Valderrama (RBC) [Entitic vol]98.3 fLCritically high80.0-94.0The [facility] Private HospitalComment on above:Performed By: #### CBC #### [facility] [address] [place] [address] Dr. Juliet Dumont #0.7 103/ulNormal0.3-0.8The [facility]an Private HospitalComment on above:Performed By: #### CBC #### [facility] [address] [place] [address] Dr. Juliet Maciasocytes/100 WBC (Bld)9.9 %Normal1.7-12.0The [facility] Comment on above:Performed By: #### CBC #### [facility] [address] [place] [address] Dr. Juliet StoryUT #3.8 103/ulNormal1.4-6.5The [facility]an Private HospitalComment on above:Performed By: #### CBC #### [facility] [address] [place] [address] Dr. Juliet Storyutrophils/100 WBC (Bld)56.0 %Deykzw57.0-75.0The [facility] Private HospitalComment on above:Performed By: #### CBC #### [facility] [address] [place] [address] Dr. Juliet Cespedeslet mean volume (Bld) [Entitic vol]9.0 fLCritically low 9.5-13.5The [facility] Private HospitalComment on above:Performed By: #### CBC #### [facility] [address] [address] [address] Juliet WilkesPLT201 103/asOlymzt294-069Dpk [facility] on above: Performed By: #### CBC #### [facility] [address] [address] [address] Juliet WilkesRBC4.12 106/ulCritically low4.70-6.10The [facility] HospitalCommclaren greater lansing hospital on above:Performed By: #### CBC #### [facility] [address] [address] [address] Juliet WilkesWBC6.7 103/ulNormal4.0-11.0The [facility] HospitalCommclaren greater lansing hospital on above: Performed By: #### CBC #### [facility] [address] [address] [address] Juliet WilkesGLYCOHEMOGLOBIN A1Con 22-67-1545VOQ RECOMMENDATIONSEE BELOWSt. Mary'S Medical Center, Ironton CampusCommclaren greater lansing hospital on above:Result Comment: ADA RECOMMENDED LIMIT 4.0 - 6.0 ADA THERAPEUTIC TARGET < 7.0 ACTION SUGGESTED > 7.0Performed By: #### A1C #### [facility] [address] [address] [address] Juliet WilkesGlucose [Mass/Vol]108 mg/dLNoKettering Health Hamilton on above:Performed By: #### A1C #### [facility] [address] [address] [address] Juliet WilkesHbA1c (Bld) [Mass fraction]5.4 %Normal4.5-6.2The [facility] on above:Performed By: #### A1C #### [facility] [address] [address] [address] Juliet WilkesLIPID PROFILEon 99-32-0908EOHL-HDL RATIO NORMSEE [facility] on above:Result Comment: 3.3 - 4.4 LOW RISK 4.4 - 7.1 AVERAGE RISK 7.1 - 11.0 MODERATE RISK >11.0 HIGH RISKPerformed By: #### LIPID, CMP #### [facility] [address] [address] [address] Juliet WilkesCholesterol [Mass/Vol]154 mg/dLNormal<=200The [facility] Comment on above:Performed By: #### LIPID, CMP #### [facility] [address] [address] [address] Juliet WilkesCholesterol in HDL [Mass/Vol]29 mg/dLCritically zir64-39Dvp [facility] HospitalComment on above:Performed By: #### LIPID, CMP #### [facility] [address] [address] [address] Juliet WilkesCholesterol in LDL [Mass/Vol]64.2 mg/dLAdams County HospitalComment on above:Performed By: #### LIPID, CMP #### [facility] [address] [place] [address] Dr. Juliet Nguyenesterroque.total/Cholesterol in HDL [Mass ratio]5.3 {ratio} NormalThe [facility]an Private HospitalComment on above:Performed By: #### LIPID, CMP #### [facility] [address] [place] [address] Dr. Juliet Kenney NORMAL> or = 60 mg/dl - LOW CARDIOVASCULAR RISK <40 mg/dl - HIGH CARDIOVASCULAR RISKAdams County HospitalComment on above:Performed By: #### LIPID, CMP #### [facility] [address] [place] [address] Dr. Juliet Landaverde CALC NORMALSEE BELOWNoMiami Valley HospitalComment on above:Result Comment: <100 mg/dl OPTIMAL 100 - 129 mg/dl NEAR OR ABOVE OPTIMAL 130 - 159 mg/dl BORDERLINE HIGH 160 - 189 mg/dl HIGH >190 mg/dl VERY HIGH Performed By: #### LIPID, CMP #### [facility] [address] [address] [address] Juliet WilkesTriglyceride [Mass/Vol]304 mg/dLCritically high<=150The [facility] Private HospitalComment on above:Performed By: #### LIPID, CMP #### [facility] [address] [place] [address] Dr. Yilan ChangVLDL CALC60.8 mg/dLNormalThe [facility] Private HospitalComment on above: Performed By: #### LIPID, CMP #### [facility] [address] [place] [address] Dr. Juliet Gutierrez 14(COMP METB)on 79-30-4160Tcdigwn [Mass/Vol]3.7 g/dLNormal 3.4-5.0The [facility] Private HospitalComment on above:Performed By: #### LIPID, CMP #### [facility] [address] [place] [address] Dr. Juliet WilkesAlbumin/Globulin [Mass ratio]1.1 {ratio}NormalThe [facility] Private HospitalComment on above:Performed By: #### LIPID, CMP #### [facility] [address] [place] [address] Dr. Juliet TylerP [Catalytic activity/Vol]87 U/QMnnhzz14-337Nsh [facility] Private HospitalComment on above:Performed By: #### LIPID, CMP #### [facility] [address] [place] [address] Dr. Juliet Benavidez [Catalytic activity/Vol]52 U/ECuuynj92-78Zci [facility] HospitalComment on above:Performed By: #### LIPID, CMP #### [facility] [address] [place] [address] Dr. Juliet Ramirez gap [Moles/Vol]11.5 mmol/LNormalThe [facility] Comment on above:Performed By: #### LIPID, CMP #### [facility] [address] [place] [address] Dr. Juliet Holloway [Catalytic activity/Vol]27 U/TRlmide75-94Epu [facility] HospitalComment on above:Performed By: #### LIPID, CMP #### [facility] [address] [place] [address] Dr. Juliet WilkesBilirubin [Mass/Vol]0.4 mg/dLNormal0.2-1.0The [facility] Comment on above:Performed By: #### LIPID, CMP #### [facility] [address] [place], [place] [address] Dr. Juliet WilkesCalcium [Mass/Vol]8.7 mg/dLNormal8.5-10.1The [facility] Comment on above:Performed By: #### LIPID, CMP #### [facility] [address] [place] [address] Dr. Juliet WilkesChloride [Moles/Vol]106 mmol/UTgubeh21-825Wov [facility] Comment on above:Performed By: #### LIPID, CMP #### [facility] [address] [place] [address] Dr. Juliet WilkesCO2 [Moles/Vol]28.2 mmol/DPqwjfa27.0-32.0The [facility] Comment on above:Performed By: #### LIPID, CMP #### [facility] [address] [place] [address] Dr. Juliet WilkesCreatinine [Mass/Vol]1.21 mg/dLNormal0.70-1.30The [facility] HospitalComment on above:Performed By: #### LIPID, CMP #### [facility] [address] [place] [address] Dr. Juliet HuddlestonGFR-AF BURMESE>60Normal>=60The [facility] HospitalComment on above:Performed By: #### LIPID, CMP #### [facility] [address] [place] [address] Dr. Juliet HuddlestonGFR-NON AF BURMESE=60Normal>=60The [facility] HospitalComment on above:Performed By: #### LIPID, CMP #### [facility] [address] [place] [address] Dr. Juliet WilkesGlobulin (S) [Mass/Vol]3.4 g/dLNormalThe [facility] HospitalComment on above:Performed By: #### LIPID, CMP #### [facility] [address] [place] [address] Dr. Juliet WilkesGlucose [Mass/Vol]100 mg/lQPwoxol54-225Sgl [facility] Comment on above:Performed By: #### LIPID, CMP #### [facility] [address] [place], [place] [address] Dr. Juliet WilkesPotassium [Moles/Vol]4.7 mmol/LNormal3.5-5.1The [facility] Comment on above:Performed By: #### LIPID, CMP #### [facility] [address] [place] [address] Dr. Juliet WilkesProtein [Mass/Vol]7.1 g/dLNormal6.4-8.2[facility] Comment on above:Performed By: #### LIPID, CMP #### [facility] [address] [address] [address] Juliet WilkesSodium [Moles/Vol]141 mmol/ETdrlof960-442Bcw [facility] Comment on above:Performed By: #### LIPID, CMP #### [facility] [address] [place] [address] Dr. Juliet WilkesUrea nitrogen [Mass/Vol]23.0 mg/dLCritically high7.0-18.0The [facility] HospitalComment on above:Performed By: #### LIPID, CMP #### [facility] [address] [address] [address] Juliet Yee nitrogen/Creatinine [Mass ratio]19.0 mg/mgNoalThSycamore Medical CenterComment on above:Performed By: #### LIPID, CMP #### [facility] [address] [place] [address] Dr. Juliet WilkesVC CONSULT FOLLOWUPon [id number] CONSULT FOLLOWUPPatient: CORNELIA, CARLOS Marianna Exam Date: 04/08/2022 : 1955 Gender:M Ordering : DR RACHEAL STEELE M.D. Admission #: [id number] Family : Order #: [id number] CLICK HERE [...] physical exam and consultation Dictated by: Racheal Steele MD on 04/08/2022 at 11:28 Approved by: Racheal Steele MD on 04/08/2022 at 11:30[facility] HospitalVC EXT VENOUS RT LIMITEDon 80-15-6817OV EXT VENOUS RT LIMITEDPatient: CARLOS CARABALLO Exam Date: 04/08/2022 : 1955 Gender:M Ordering : DR RACHEAL STEELE M.D. Admission #: [id number] Family : Order #: [id number] CLICK HERE TO VIEW EXAM RADIOLOGY REPORT [...] leg incompetent varicose veins Dictated by: Racheal Steele MD on 04/08/2022 at 11:31 Approved by: Racheal Steele MD on 04/08/2022 at 11:31[facility] HospitalVC INJ FOAM SCLERO W US MLTIon 86-74-1411MT INJ FOAM SCLERO W US MLTIPatient: CARLOS CARABALLO LeniRusty Exam Date: 04/03/2022 : 1955 Gender:M Ordering : DR RACHEAL STEELE M.D. Admission #: [id number] Family : DR NATHALY BOONE . Order #: [id number] CLICK HERE TO VIEW EXAM RADIOLOGY REPORT [...] Varithena(r) 2. Intraoperative ultrasound guidance Physician: Racheal Steele M.D. Anesthesia: None Indications for Procedure: 66-year-old [...] for 48 hours, av (more content not included)...Normal The [facility] HospitalVC CONSULT FOLLOWUPon [id number] CONSULT FOLLOWUPPatient: CARLOS CARABALLO Exam Date: 03/25/2022 : 1955 Gender:M Ordering : DR RACHEAL STEELE M.D. Admission #: [id number] Family : Order #: [id number] CLICK HERE TO VIEW EXAM RADIOLOGY REPORT [...] physical exam and consultation Dictated by: Elin Mccartney M.D. on 03/25/2022 at 08:39 Approved by: Elin Mccartney M.D. on 03/25/2022 at 08:41[facility] HospitalVC EXT VENOUS RT LIMITEDon 19-03-4222IR EXT VENOUS RT LIMITEDPatient: CARLOS CARABALLO. Exam Date: 03/25/2022 : 1955 Gender:M Ordering : DR RACHEAL STEELE M.D. Admission #: [id number] Family : Order #: [id number] CLICK HERE TO VIEW EXAM RADIOLOGY REPORT [...] right great saphenous vein. Dictated by: Elin Mccartney M.D. on 03/25/2022 at 08:37 Approved by: Elin Mccartney M.D. on 03/25/2022 at 08:39[facility] HospitalVC ENDOVENOUS ABL 1ST V RTon 45-57-6809KU ENDOVENOUS ABL 1ST V RT Patient: CARLOS CARABALLO Exam Date: 03/19/2022 : 1955 Gender:M Ordering : DR RACHEAL STEELE M.D. Admission #: [id number] Family : Order #: [id number] CLICK HERE TO VIEW EXAM RADIOLOGY REPORT [...] the great saphenous vein. Dictated by: Racheal Steele MD on 03/19/2022 at 08:55 Approved by: Racheal Steele MD on 03/19/2022 at 08:58[facility] HospitalVC CONSULT FOLLOWUPon 36-54-6791EW CONSULT FOLLOWUPPatient: CARLOS CARABALLO Exam Date: 02/18/2022 : 1955 Gender:M Ordering : DR RACHEAL STEELE M.D. Admission #: [id number] Family : Order #: [id number] CLICK HERE TO VIEW EXAM RADIOLOGY REPORT [...] physical exam and consultation Dictated by: Racheal Steele MD on 02/18/2022 at 09:42 Approved by: Racheal Steele MD on 02/18/2022 at 09:45[facility] HospitalVC EXT VENOUS LT LIMITEDon 56-90-2726BD EXT VENOUS LT LIMITEDPatient: CARLOS CARABALLO Exam Date: 02/18/2022 : 1955 Gender:M Ordering : DR RACHEAL STEELE M.D. Admission #: [id number] Family : Order #: [id number] CLICK HERE TO VIEW EXAM RADIOLOGY REPORT [...] varicose veins remain off of SSV and abstract clerk mid posterior calf. *Exam performed in accordance with [facility] practice guidelines- Peripheral venous ultrasound, October 07, 2009. 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 Admission #: [id number] Family : Order #: [id number] CLICK HERE TO VIEW EXAM RADIOLOGY REPORT [...] Varithena(r) 2. Intraoperative ultrasound guidance Physician: Elin Mccartney M.D. Anesthesia: None. Indications for Procedure: 66 [...] PERSONNEL: Manjit Cortés R.N. Dictated by: Elin Mccartney M.D. on 02/13/2022 at 10:10 Approved by: Elin Mccartney M.D. on 02/13/2022 at 10:15NAkron Children's HospitalVC CONSULT FOLLOWUPon 84-37-2414XH CONSULT FOLLOWUPPatient: CARLOS CARABALLO Exam Date: 02/06/2022 : 1955 Gender:M Ordering : DR RACHEAL STEELE M.D. Admission #: [id number] Family : Order #: [id number] CLICK HERE TO VIEW EXAM RADIOLOGY REPORT [...] physical exam and consultation Dictated by: Elin Mccartney M.D. on 02/06/2022 at 09:49 Approved by: Elin Mccartney M.D. on 02/06/2022 at 09:53[facility] HospitalVC EXT VENOUS LT LIMITEDon 75-64-8960VO EXT VENOUS LT LIMITEDPatient: CARLOS CARABALLO Exam Date: 02/06/2022 : 1955 Gender:M Ordering : DR RACHEAL STEELE M.D. Admission #: [id number] Family : Order #: [id number] CLICK HERE TO VIEW EXAM RADIOLOGY REPORT [...] LEFT GREAT SAPHENOUS VEIN. Dictated by: Elin Mccartney M.D. on 02/06/2022 at 09:26 Approved by: Elin Mccartney M.D. on 02/06/2022 at 09:49[facility] HospitalGLYCOHEMOGLOBIN A1Con 78-82-9853DNS RECOMMENDATIONSEE BELOWAdams County HospitalComment on above:Result Comment: ADA RECOMMENDED LIMIT 4.0 - 6.0 ADA THERAPEUTIC TARGET < 7.0 ACTION SUGGESTED > 7.0Performed By: #### A1C #### [facility] [address] [address] [address] Juliet WilkesGlucose [Mass/Vol]108 mg/dLNormalThe [facility] HospitalComment on above:Performed By: #### A1C #### [facility] [address] [address] [address] Juliet WilkesHbA1c (Bld) [Mass fraction]5.4 %Normal4.5-6.2The [facility] HospitalComment on above:Performed By: #### A1C #### [facility] [address] [address] [address] Juliet WilkesPROF 14(COMP METB)on 21-52-9567Wtnmghg [Mass/Vol]4.0 g/dLNormal 3.4-5.0The [facility] HospitalComment on above:Performed By: #### CMP ####[facility] [address] [address]Dr.Juliet Wilkes Albumin/Globulin [Mass ratio]1.2 {ratio}NormalThe [facility] Private HospitalComment on above:Performed By: #### CMP ####[facility] [address] [address]Dr.Juliet WilkesALP [Catalytic activity/Vol]89 U/LNormal 46-116The [facility] HospitalComment on above:Performed By: #### CMP ####[facility] [address] [address]Dr.Juliet WilkesALT [Catalytic activity/Vol]81 U/LCritically qtix17-53Lgs Providence Hospitalment on above:Performed By: #### CMP ####[facility] [address] [address]DrNatalie WilkesAnion gap [Moles/Vol]13.6 mmol/LNormal The [facility] HospitalComment on above:Performed By: #### CMP ####[facility] [address] [place], [place] [address]Dr.Yilan ChangAST [Catalytic activity/Vol]32 U/ONrnteh59-02Zjw [facility] HospitalComment on above: Performed By: #### CMP ####[facility] [address] [place], [place] [address]Dr.Yilan ChangBilirubin [Mass/Vol]0.5 mg/dLNormal 0.2-1.0The [facility] HospitalComment on above:Performed By: #### CMP ####[facility] [address] [place], [place] [address]Dr.Yilan Wilkes Calcium [Mass/Vol]8.9 mg/dLNormal8.5-10.1The [facility] HospitalComment on above: Performed By: #### CMP ####[facility] [address] [place], [place] [address]Dr.Yilan ChangChloride [Moles/Vol]106 mmol/LNormal 98-107The [facility] HospitalComment on above:Performed By: #### CMP ####[facility] [address] [place], [place] [address]Dr.Yilan ChangCO2 [Moles/Vol]27.1 mmol/XKuzclf85.0-32.0The [facility] HospitalComment on above: Performed By: #### CMP ####[facility] [address] [place], [place] [address]Dr.Yilan ChangCreatinine [Mass/Vol]1.46 mg/dL Critically high0.70-1.30The [facility] Private HospitalComment on above:Performed By: #### CMP ####[facility] [address] [place], [place] [address]Dr.Yilan ChangEGFR-AF KJOUNIZH36 mL/min/1.68f5Xvatxovapf low>=60The [facility] HospitalCommclaren greater lansing hospital on above:Performed By: #### CMP ####[facility] [address] [place], [place] [address]Dr.Yilan ChangEGFR-NON AF GOKELTFE21 mL/min/1.75x8Iqcmkduywu low>=60The [facility] Private HospitalComment on above: Performed By: #### CMP ####[facility] [address] [place] [id number].Yilan ChangGlobulin (S) [Mass/Vol]3.4 g/dLNormOhioHealth Grant Medical CenterComment on above:Performed By: #### CMP ####[facility] Lujat[address] [place], [place] [address]Dr.Yilan ChangGlucose [Mass/Vol]93 mg/gDHyghjm35-852Ngs [facility] HospitalComment on above:Performed By: #### CMP ####[facility] Vfebtwmono[address] [place], [place] [address]Dr.Yilan ChangPotassium [Moles/Vol]4.7 mmol/LNormal3.5-5.1The [facility] HospitalComment on above:Performed By: #### CMP ####[facility] K[address] [place], [place] [address]Dr.Yilan ChangProtein [Mass/Vol]7.4 g/dLNormal6.4-8.2The [facility] HospitalComment on above:Performed By: #### CMP ####[facility] Tilphrqhb[address] [place], [place] [address]Dr.Yilan ChangSodium [Moles/Vol]142 mmol/AHozvet008-073Bif [facility] HospitalComment on above:Performed By: #### CMP ####[facility] [address]ef[address] [place], [place] [address]Dr.Yilan ChangUrea nitrogen [Mass/Vol]25.0 mg/dLCritically high7.0-18.0The [facility] HospitalComment on above:Performed By: #### CMP ####[facility] [address] [address]Dr.Yilan ChangUrea nitrogen/Creatinine [Mass ratio] 17.1 mg/mgNoMiami Valley HospitalComment on above:Performed By: #### CMP ####[facility] Wxws[address] [place], [place] [address]Dr. Yilan ChangVC ENDOVENOUS ABL 1ST V LTon 02-29-9644DU ENDOVENOUS ABL 1ST V LT Patient: CORNELIA CARLOS [place] Exam Date: 01/30/2022 : 1955 Gender:M Ordering : DR RACHEAL STEELE M.D. Admission #: [id number] Family : Order #: [id number] CLICK HERE TO VIEW EXAM RADIOLOGY REPORT [...] left great saphenous vein. Dictated by: Elin Mccartney M.D. on 01/30/2022 at 11:59 Approved by: Elin Mccartney M.D. on 01/30/2022 at 12:00NoMiami Valley HospitalPOINT OF CARE GLUCOSEon 27-48-1163Rogphif [Mass/Vol]84 mg/zZTwaoik73-999 The [facility] HospitalComment on above:Performed By: #### POCGLUC #### [facility] [address] [place] [address] Dr. Juliet WilkesVC COMP CONSULTATIONon 12-84-0062XO COMP CONSULTATIONPatient: CARLOS CARABALLORusty Exam Date: 01/21/2022 : 1955 Gender:M Ordering : DR RACHEAL STEELE M.D. Admission #: [id number] Family : Order #: [id number] CLICK HERE TO VIEW EXAM RADIOLOGY REPORT [...] for years. The patient is retired from [employer] after working 42 years. The patient denies [...] additional information, and this was performed [facility]. See separate history and physical [...] incompetent branch saphenous tributary/varicose veins. Bilateral incompetent abstract clerk veins. PHYSICAL EXAM: The right leg demonstrates [...] pulses were present bilaterally. IMPRESSION: 1. Bilateral vknz-vz-piiowunn great saphenous vein and mild right small [...] physical exam and consultation Dictated by: Racheal Steele MD on 01/21/2022 at 11:30 Approved by: Racheal Steele MD on 01/21/2022 at 11:46Adams County HospitalVC VENOUS REFLUX MARIE LMTon 49-88-8377YZ VENOUS REFLUX MARIE LMTPatient: CARLOS CARABALLO Exam Date: 01/21/2022 : 1955 Gender:M Ordering : DR RACHEAL STEELE M.D. Admission #: [id number] Family : DR NATHALY BOONE . Order #: [id number] CLICK HERE TO VIEW EXAM RADIOLOGY REPORT [...] Compressibility: Normal. Flow: Mild deep venous reflux. Director Of Transportation: Post/prox calf 5.9mm, 0.7s reflux. Prox/med calf [...] branch saphenous varicose veins Dictated by: Racheal Steele MD on 01/21/2022 at 10:38 Approved by: Racheal Steele MD on 01/21/2022 at 10:40NoMiami Valley Hospital POINT OF CARE GLUCOSEon 80-32-2240Lqkdppb [Mass/Vol]87 mg/jUFccvlg83-007GfmKettering HealthComment on above:Performed By: #### POCGLUC ####[facility] [address] [place], [place] [address]Tz. Dianajavier Ricky SURGICAL PATHOLOGYon 67-50-3056FXZJLOVZ PATHOLOGYSpecimen #: [id number] Submitting Physician: JULIET WILKES M.D. FINAL DIAGNOSIS [employer], [place]; [id number] (12/07/2020) Liver, mass , biopsy (A1, A2, [...] do not hesitate to contact us at [phone] with questions or if additional follow up information becomes available. This case was reviewed in conjunction with the GI pathology fellow, Apoorva Diallo MD. The following stains were performed at the [facility] in order to further [...] in-situ hybridization tests have been determined by [facility]'s [facility] Pathology and Laboratory Medicine [place] ([facility]) in a manner consistent with CLIA requirements. One or more of these tests have not been cleared or approved by the FDA. [facility] is regulated under CLIA as qualified to perform high-complexity testing. These tests are used for clinical purposes. They should not be regarded as investigational or for research. Nicolasa Cheema M.D. (Electronic Signature) SPECIMEN SUBMITTED A: 12 slides [id number] CLINICAL DATA [facility] Date of Report: 03/27/2021 Date of Procedure: 03/16/2021 Date of Receipt: 03/15/2021 Submitted by: JULIET WILKES M.D. Location: Diagnostic interpretation performed at [facility], [address] [place] [address]. CLIA Number: [id number] Clinic Reference Lab Comment on above:Performed By: #### S #### See report for performing lab information. Vital Signs Date TimeVital SignValuePerforming IqefrnkuzYxupvozx01-96-3719 08:53-0400Body mvxxyy597 cmTulio Ruggiero MD Work Phone: [facility] HospitalPixdqbrsnx39-53-5601 08:53-0400Body mass index (BMI) [Ratio]37.62 kg/m2Tulio Ruggiero MD Work Phone: [facility] HospitalGpgpjguxww93-23-9296 08:53-0400Body temperature 97.11 [degF]Tulio Ruggiero MD Work Phone: [facility] HospitalIsfrvrrbsn15-62-1480 08:53-0400Body auukux516.9 kgTulio Ruggiero MD Work Phone: [facility] HospitalBgypzewaqj41-07-5976 08:53-0400Diastolic blood amqfcixc52 mm[Hg]Tulio Ruggiero MD Work Phone: [facility] HospitalFxqdnofqpq53-81-4345 08:53-0400Heart rate84 /min Tulio Ruggiero MD Work Phone: [facility] HospitalBofwaffnxb12-18-1067 08:53-0400Respiratory rate20 /minTulio Ruggiero MD Work Phone: [facility] HospitalXimylnsuql01-25-6179 08:53-6633FcA8% (BldA) [Mass fraction]98 %Tulio Ruggiero MD Work Phone: [facility] HospitalLnbdqdmled00-37-8725 08:53-0400Systolic blood urnysvml372 mm[Hg]Tulio Ruggiero MD Work Phone: [facility] HospitalVhlumjajsr42-67-4205 13:22-0400Body gghysx895 cm Tulio Ruggiero MD Work Phone: [facility] HospitalXfmuuaahcf14-61-2368 13:22-0400Body mass index (BMI) [Ratio]38.26 kg/m2Tulio Ruggiero MD Work Phone: [facility] HospitalGqobwurrpl16-73-9167 13:22-0400Body temperature 97.11 [degF]Tulio Ruggiero MD Work Phone: [facility] HospitalZumolmxzui16-56-0825 13:22-0400Body zmsosx257.17 kgTulio Ruggiero MD Work Phone: [facility] HospitalCqicxtttoc71-83-4453 13:22-0400Diastolic blood wmkgvrki09 mm[Hg]Tulio Ruggiero MD Work Phone: [facility] HospitalNktrnfgdsb52-67-0659 13:22-0400Heart rate97 /min Tulio Ruggiero MD Work Phone: [facility] HospitalEycmhlcxer09-78-0680 13:22-0400Respiratory rate18 /minTulio Ruggiero MD Work Phone: [facility] HospitalUopurokcdl07-50-2997 13:22-4343MkF9% (BldA) [Mass fraction]99 %Tulio Ruggiero MD Work Phone: [facility] HospitalQjcehsekyp67-87-6242 13:22-0400Systolic blood huaqseef880 mm[Hg]Tulio Ruggiero MD Work Phone: [phone] [place], [place] [address]Xwfwbxbtxg15-98-1906 09:11-0500Body mass index (BMI) [Ratio]37.75 kg/m2Tulio Ruggiero MD Work Phone: [facility] HospitalDnplsubmya95-64-5855 09:11-0500Body temperature 98.4 [degF]Tulio Ruggiero MD Work Phone: [facility] HospitalTsauyrikga99-26-2330 09:11-0500Body .36 kgTulio Ruggiero MD Work Phone: [phone] [place], [place] [address]Rmicepybhh89-14-8234 09:11-0500Diastolic blood jedrqwug51 mm[Hg]Tulio Ruggiero MD Work Phone: [facility] HospitalBjdwgesgnh34-37-0836 09:11-0500Heart rate96 /min Tulio Ruggiero MD Work Phone: [facility] HospitalZekyqpjlzo17-76-5394 09:11-0500Respiratory rate18 /minTulio Ruggiero MD Work Phone: [facility] HospitalWcavabkvip23-83-9735 09:11-9757KkE5% (BldA) [Mass fraction]96 %Tuloi Ruggiero MD Work Phone: [facility] HospitalXfappfbqsk32-43-0824 09:11-0500Systolic blood xykfsxnu446 mm[Hg]Tluio Ruggiero MD Work Phone: [facility] HospitalNitwppkrzd05-35-1346 08:56-0500Blood Pressure LocationJENNIFER DAVID [facility] [place] [facility]11-14-2024 08:56-0500Body tiuherqgxad31.6 [degF]ABIODUN DAVID [facility] [place] [facility]11-14-2024 08:56-0500Diastolic blood udtabcyn39 mm[Hg]ABIODUN DAVID [facility] [place] [facility]11-14-2024 08:56-0500Heart rate79 /minJENNIFER DAVID [facility] [place] [facility]11-14-2024 08:56-0500Respiratory rate18 /minJENNIFER DAVID [facility] [place] [facility]11-14-2024 08:56-0500Systolic blood untgkzql268 mm[Hg]ABIODUN DAVID [facility] [place] [facility]04-23-2024 08:38-0400Blood Pressure LocationJENNIFER DAVID [facility] [place] [facility]04-23-2024 08:38-0400Diastolic blood mm[Hg]ABIODUN DAVID [facility] [place] [facility]04-23-2024 08:38-0400Heart rate80 /minJENNIFER DAVID [facility] [place] [facility]04-23-2024 08:38-0400Respiratory rate16 /minJENNIFER DAVID [facility] [place] [facility]04-23-2024 08:38-0400Systolic blood skzikovf409 mm[Hg]ABIODUN DAVID [facility] [place] [facility]11-21-2023 09:59-0500Blood Pressure LocationJENNIFER DAVID [facility] [place] [facility]11-21-2023 09:59-0500Diastolic blood nskynzxq18 mm[Hg]ABIODUN DAVID [facility] [place] [facility]11-21-2023 09:59-0500Heart rate70 /minJENNIFER DAVID [facility] [place] [facility]11-21-2023 09:59-0500Respiratory rate16 /minJENNIFER DAVID [facility] [place] [facility]11-21-2023 09:59-0500Systolic blood qkpxkohj057 mm[Hg]ABIODUN DAVID [facility] [place] [facility]11-10-2022 09:45-0500Body mookrs213.96 cmThomas Olexa Other [employer] Other 11-10-2022 09:45-0500Body mass index (BMI) [Ratio] 40.57 kg/l8Btfmjp Olexa Other [employer] Other 11-10-2022 09:45-0500Body .34 kgThomas Olexa Other [employer] Other 01-25-2022 14:15-0500Body furmpi798.96 cmThomas Olexa Other [employer] Other 01-25-2022 14:15-0500Body mass index (BMI) [Ratio] 40.64 kg/o7Hqdvrj Olex[employer] Other [employer] Other 01-25-2022 14:15-0500Body xyyozv024.61 kgThomas Olexa Other [employer] Other 09-30-2021 10:30-0400Body zegdqd729.96 cmDavid Hykes Other [employer] Other 09-30-2021 10:30-0400Body mass index (BMI) [Ratio] 41.75 kg/w9Zbmit Hykes Other [employer] Other 09-30-2021 10:30-0400Body uyrwnk665.51 kgDavid Hykes Other [employer] Other 09-30-2021 10:30-0400Diastolic blood nvbzznly83 mm[Hg] Racheal Daniels Other [employer] Other 09-30-2021 10:30-0400Systolic blood mm[Hg] Racheal Daniels Other [employer] Other Encounters Encounter DateEncounter TypeCare ProviderFacilityStart: 73-36-9126vsikhwkgcv Vika X OrzechFacility:EU BellevueStart: 03-06-2025 End: 71-29-2489VcrapyIhbx Naderer MD Work Phone: [facility] CW FMComment on above: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)Start: 01-31-2025 End: 75-78-8034Xfzyggqsu Result EncounterGeneric External Data ProviderNOMS External Department UnsolicitedStart: 01-31-2025 End: 16-70-3898Pksvenwod Result EncounterGeneric External Data ProviderNOMS External Department UnsolicitedStart: 01-31-2025 End: 58-07-8849dghvkbatsoEXNCI Te [facility] DIVISIONBINAAvita Health System HospitalStart: 01-31-2025 End: 38-42-7329Rprzoqpsmp hospital visit by physicianMwh Additional [facility] RadiologyComment on above:Aftercare following left knee joint replacement surgeryStart: 01-13-2025 End: 13-50-1189Qqgtuculd Result EncounterTulio Ruggiero MD Work Phone: noms External Department UnsolicitedStart: 01-13-2025 End: 86-18-7108Kescsqmlw Result EncounterTulio Ruggiero MD Work Phone: noms External Department UnsolicitedStart: 01-12-2025 End: 19-73-1680Ybxcxw flowsAracely Ruggiero MD Work Phone: [facility] CW FMStart: 01-12-2025 End: 10-02-2157Bstrxw flowsAracely Ruggiero MD Work Phone: [facility] CW FMStart: 01-12-2025 End: 57-66-6688Ugdqgx outpatient visit 25 minutesTulio Ruggiero MD Work Phone: [facility] CW FMComment on above:Type 2 diabetes mellitus with hyperglycemia, without long-term current use of insulin (HCC) (Primary Dx); Arthritis, gouty; Seasonal allergic rhinitis due to pollen; Primary insomnia; Degeneration of intervertebral disc of lumbar region with discogenic back pain; Class 2 severe obesity due to excess calories with serious comorbidity and body mass index (BMI) of37.0 to 37.9 in adult ([facility]-HCC); Type 2 diabetes mellitus with diabetic chronic kidney disease (HCC); Chronic kidney disease, stage 3a ([facility]-HCC)Start: 01-12-2025 End: 36-01-5762nityxzbpaxRQAH NADERERNot AvailableStart: 12-31-2024 End: 65-76-1830Prfilwxov Result EncounterGeneric External Data ProviderNOMS External Department UnsolicitedStart: 12-31-2024 End: 48-98-8228Pundzymsa Result EncounterGeneric External Data ProviderNOMS External Department UnsolicitedStart: 12-06-2024 End: 91-53-4869NxwomcUmhv Naderer MD Work Phone: [facility]oms CWM FMComment on above:Polyneuropathy due to type 2 diabetes mellitus ([facility]/HCC)Start: 11-08-2024 End: 24-14-1166CtzfilRtyb Naderer MD Work Phone: noms CWM FMComment on above:Male hypogonadismStart: 10-19-2024 End: 80-61-1034Zqgtbz Radha Ruggiero MD Work Phone: NOQG CWM FMComment on above:Annual physical exam (Primary Dx); Morbid obesity ([facility]); Polyneuropathy due to type 2 diabetes mellitus ([facility]); Type 2 diabetes mellitus with hyperglycemia, without long-term current use of insulin ([facility]); Arthritis, goutyStart: 10-19-2024 End: 08-23-5843Rscjnjs encounter procedureTulio Ruggiero MD Work Phone: [facility] Work Phone: Start: 10-13-2024 End: 01-50-6266Vwvirh flowsAracely Ruggiero MD Work Phone: noms CWM FMStart: 10-13-2024 End: 81-21-4776Szjfvd Thomas Ruggiero MD Work Phone: noms CWM FMStart: 10-13-2024 End: 43-95-5112Bwdxlk outpatient visit 15 minutesTulio Ruggiero MD Work Phone: n[facility] CWM FMComment on above:Abscess of abdominal wall (Primary Dx)Start: 10-13-2024 End: 62-43-6975xyqlmtnmtvRBRD NADERERNot AvailableStart: 10-04-2024 End: 16-08-2537Gzrjttfnd Result EncounterGeneric External Data ProviderNOMS External Department UnsolicitedStart: 10-04-2024 End: 66-94-4970Ntjcrrslk Result EncounterGeneric External Data ProviderNOMS External Department UnsolicitedStart: 09-06-2024 End: 23-94-8330Uetfrwmxc Result EncounterGeneric External Data ProviderNOMS External Department UnsolicitedStart: 09-06-2024 End: 00-97-7858Hnfyinxux Result EncounterGeneric External Data ProviderNOMS External Department UnsolicitedStart: 08-24-2024 End: 46-71-9760Qmpxigzte Result EncounterGeneric External Data ProviderNOMS External Department UnsolicitedStart: 08-24-2024 End: 64-62-3159Jiqdjpdqy Result EncounterGeneric External Data ProviderNOMS External Department UnsolicitedStart: 08-23-2024 End: 27-89-4453Hsxorkhxj Result EncounterGeneric External Data ProviderNOMS External Department UnsolicitedStart: 08-23-2024 End: 69-02-8380Vnohlilxu Result EncounterGeneric External Data ProviderNOMS External Department UnsolicitedStart: 08-19-2024 End: 85-90-9912Aufibwwdg Result EncounterGeneric External Data ProviderNOMS External Department UnsolicitedStart: 08-19-2024 End: 36-71-8074Gzwkgrzkh Result EncounterGeneric External Data ProviderNOMS External Department UnsolicitedStart: 08-07-2024 End: 09-09-7451ByjxcbDuzv Naderer MD Work Phone: noms CWM FMComment on above:Morbid obesity (CMS/HCC); Polyneuropathy due to type 2 diabetes mellitus ([facility]/HCC); Type 2 diabetes mellitus with hyperglycemia, without long-term current use of insulin ([facility])Start: 08-05-2024 End: 37-57-3257Ldkickbzc Result EncounterGeneric External Data ProviderNOMS External Department UnsolicitedStart: 08-05-2024 End: 14-66-7092Avywrnpxq Result EncounterGeneric External Data ProviderNOMS External Department UnsolicitedStart: 07-28-2024 End: 71-05-1668Yyvqgf OnlyTulio Ruggiero MD Work Phone: noms CW FMComment on above:Type 2 diabetes mellitus with hyperglycemia, without long-term current use of insulin ([facility]/HCC) (Primary Dx); Dyslipidemia ([facility]); Class 2 severe obesity due to excess calories with serious comorbidity and body mass index (BMI) of37.0 to 37.9 in adult ([facility]); Encounter for long-term current use of medication; Screening PSA (prostate specific antigen)Start: 07-26-2024 End: 79-74-7109qidvjaoozrBubymWhidbeyHealth Medical Center DOConfluence Health Hospital, Central Campusity:[facility] Start: 07-23-2024 End: 10-84-6176diurfdtqdmGtryh Jay Mathews DORust:[facility] Start: 07-20-2024 End: 03-31-0189Xvyftkush Result EncounterGeneric External Data ProviderNOMS External Department UnsolicitedStart: 07-20-2024 End: 67-32-7859Onmolgriz Result EncounterGeneric External Data ProviderNOMS External Department UnsolicitedStart: 07-15-2024 End: 76-05-6966Zhpjqv Thomas Ruggiero MD Work Phone: noms CWM FMStart: 07-15-2024 End: 22-47-0754Kwospi flowsAracely Ruggiero MD Work Phone: noms CWM FMStart: 07-15-2024 End: 05-46-2459Nvrigcu encounter procedureTulio Ruggiero MD Work Phone: [facility] Work Phone: Start: 07-15-2024 End: 80-74-7713Wkqsrypq preventive med est patient 65yrs& olderTulio Ruggiero MD Work Phone: noms CWM FMComment on above:Annual physical exam (Primary Dx); Encounter for preoperative assessment; Type 2 diabetes mellitus with hyperglycemia, without long-term current use of insulin ([facility]); Arthritis, gouty; Polyneuropathy due to type 2 diabetes mellitus ([facility]); Class 2 severe obesity due to excess calories with serious comorbidity and body mass index (BMI) of37.0 to 37.9 in adult ([facility]); Dyslipidemia ([facility])Start: 07-15-2024 End: 90-82-8405Ajiupbgcousq Sal Ruggiero MD Work Phone: noms HealthcareStart: 07-15-2024 End: 61-77-1149mbqpqwtaudGEQF NADERERNot AvailableStart: 05-27-2024 End: 07-26-2803itsqjfefnaPCPFAVNJ E PERRYFacility:EU BellevueStart: 05-27-2024 End: 81-53-1517Isfvkmh encounter procedureJENNIFER E DAVID [facility] [place] [facility] start: 04-08-2024 End: 02-19-6254AfxeoeHilz Naderer MD Work Phone: noms CWM FMComment on above:Polyneuropathy due to type 2 diabetes mellitus ([facility])Start: 04-06-2024 End: 54-68-2546MczvyuGxlk Naderer MD Work Phone: noms CWM FMComment on above:Male hypogonadismStart: 11-04-2023 End: 82-86-7200Ffequnx encounter procedureJENNIFER E DAVID [facility] start: 28-12-8938Yumgwii encounter Santino Ruggiero MD Work Phone: noms HealthcareStart: 06-03-2023 End: 04-18-4978Dgjmpom encounter procedureJENNIFER E DAVID [facility] start: 12-05-2022 End: 53-52-4801eykusnyazlVJ KIM E KNIGHT .Facility:I6Hfrtn: 12-03-2022 End: 08-44-4829kwdpiigwpkMX FELISA BERRIOS .Facility:I3Zypao: 11-29-2022 End: 10-49-8715piqcoslvkcLDQZBLMFEVWJ LAKSHMIPATHY .Facility:T4Mghxo: 11-12-2022 End: 02-53-0573ohyaeugqybPZ FELISA BERRIOS .Facility:X3Ejosw: 11-05-2022 End: 94-70-9197nxirnlxiodHX FELISA BERRIOS .Facility:T6Mhbfl: 10-28-2022 End: 66-89-7608ftpyzajwsbLZ FELISA BERRIOS .Facility:K2Omavf: 10-21-2022 End: 26-17-0053swgrxxegpeLQ KIM E KNIGHT .Facility:I1Padyd: 56-46-2238Yrcjdwjsl for preprocedural cardiovascular examinationPETER D Mer[facility] Health Allen Hospitaltart: 54-28-0318Jlothhvzj for preprocedural laboratory examinationPETER D [facility] Hospitaltart: 46-75-4677zyrfbrtaxwCX KIM E KNIGHT . Facility:C4Urljb: 10-10-2022 End: 32-09-9683dufwqijmczFN KIM E KNIGHT .Facility:V4Ajvwb: 10-10-2022 End: 73-26-5749Oqtvbxapd for preprocedural cardiovascular examinationDR FELISA BERRIOS .Facility:P9Hsjeg: 09-24-2022 End: 01-64-5964otprpfmvyjHR FELISA BERRIOS .Facility:Z2Jpaui: 09-20-2022 End: 31-40-9508amwuvmrdawWS KIM E KNIGHT .Facility:X2Upzrb: 09-10-2022 End: 76-64-1057mskomyqrvwZE KIM E KNIGHT .Facility:B7Vswce: 08-26-2022 End: 08-11-4307gchanagfdwMT FELISA BERRIOS .Facility:L0Lnhmi: 08-06-2022 End: 22-36-5039mvielmstfyDPSST D RIPON MEDICAL CENTERFacility:X3Dqrtl: 07-31-2022 End: 41-32-6299htqnppgumvAEEXXGS [facility] Hospitaltart: 07-31-2022 End: 50-78-3936cchupoxmxwZB NATHALY BOONE .Facility:S6Mjhpr: 07-25-2022 End: 23-81-5162ewzhwpcwyuRBFE JOHNSON .Facility:S7Jrmde: 07-24-2022 End: 48-02-4887wwacnyoiwiLUBEP D [facility] Innovation Centercility:F5Egmso: 07-23-2022 End: 91-99-2652rkmmwvsdgkZE FELISA BERRIOS .Facility:K2Bdxhp: 07-22-2022 End: 83-15-2408pnauhjbxhlPU FELISA BERRIOS .Facility:V7Tfuat: 35-15-5354tfoeodspbc DR NATHALY BOONE .Facility:F6Dzmtu: 06-28-2022 End: 51-83-0806rpzmfrqyveXV EHAB ELTAHAWYFacility:N7Obftu: 06-10-2022 End: 79-81-9671ybbltxbxtnBQ FELISA BERRIOS .Facility:K8Fospk: 05-27-2022 End: 62-68-7370lktilberwsZL RACHEAL Reynosocility:N3Dklac: 05-23-2022 End: 21-42-5688rlwxcgdmiqMmcawn Olexa Other [employer] Other Start: 32-76-7335Yaczsu outpatient visit 15 minutes Alejandra Clifford OrthopedicsStart: 05-03-2022 End: 06-56-5946igdktnabpuON FELISA BERRIOS .Facility:V7Holuc: 04-23-2022 End: 45-95-1314vocmofjuaeVF NATHALY BOONE .Facility:G1Qsvdp: 04-08-2022 End: 02-59-6833npkohhqdlrYA DAVID V WESTFacility:Z7Ypiia: 04-04-2022 End: 92-54-2829kzpfnxurldTQJO SOLIS .Facility:Y1Adnys: 04-03-2022 End: 52-89-4118kzipaybtduZO RACHEAL V WESTFacility:W5Zsfub: 03-25-2022 End: 73-31-2195qpudnkkfulSV RACHEAL V WESTFacility:X8Joeka: 03-19-2022 End: 51-89-0496hiyiqvggcbSU RACHEAL V WESTFacility:I1Dswan: 02-18-2022 End: 14-90-1038ztiskaajpqHI RACHEAL V WESTFacility:F6Qdhvt: 39-99-6713ihfkteoqzhBR FELISA Juarez BERRIOS .Facility:W9Woqwd: 02-14-2022 End: 84-50-3213zwftfvoojrZQ FELISA Juarez BERRIOS .Facility:Q3Jwsbw: 02-13-2022 End: 84-44-0710iuxwyebbluRX FELISA Juarez BERRIOS .Facility:W0Mhikw: 02-06-2022 End: 98-03-7232qttlekxmwgSH FELISA Juarez BERRIOS .Facility:B6Ohoqv: 02-05-2022 End: 27-22-9009yjkwfxlkicAZ FELISA Juarez BERRIOS .Facility:X2Wpyse: 01-30-2022 End: 79-90-8978lrcbzovtftLX FELISA Juarez BERRIOS .Facility:O6Nczfz: 01-22-2022 End: 69-13-4205yvjgiukqgqRC FELISA Juarez BERRIOS .Facility:R4Eurxh: 01-21-2022 End: 65-10-9295qfitzssbdwWE FELISA Juarez BERRIOS .Facility:T2Lkdyo: 01-08-2022 End: 56-20-5283gghglrtkjeBF FELISA Ann BERRIOS .Facility:R3Kvuyh: 08-07-2021 End: 50-96-2896hlimzowomtDdpbvf Olexa Other [facility] [employer] Other Start: 33-66-0387Meuakk outpatient visit 15 minutes Alejandra OlexaFPG [facility] BellevueStart: 11-49-3349Gbaukj outpatient visit 15 minutesDavid HykesFPG Gastroenterology Procedures DateProcedureProcedure DetailPerforming ClinicianStart: 91-28-4256AF KNEE LEFT (3 VIEWS)Generic External Data ProviderStart: 36-43-7712Qubqtlcezp examination knee 3 viewsDaniele Valencia DO Work Phone: Start: 20-89-6075LVI MICROALB CREAT RATIO RANDOMTulio Ruggiero MD Work Phone: Start: 38-58-2904AKYM PSA, DIAGNOSTICGeneric External Data ProviderStart: 05-16-5358Skiwmghhgg examination knee 1/2 viewsGeneric External Data ProviderStart: 50-02-0003Ehbtfdsnyn examination knee 1/2 views Generic External Data ProviderStart: 85-54-3275ATR BASIC METABOLIC PANELGeneric External Data ProviderStart: 57-13-3164Rnbmaysdav exam knee complete 4/more viewsGeneric External Data ProviderStart: 83-69-7147TKG CBC WITH AUTO DIFF Generic External Data ProviderStart: 64-49-9243Bvlxaajb screenGeneric Provider Start: 25-17-6415HUO TYPE AND SCREENGeneric External Data ProviderStart: 60-70-0089Bqcrcxiw screenGeneric ProviderStart: 70-77-6198PPA TYPE AND SCREEN Generic External Data ProviderStart: 46-28-5763EAC UA (CLEAN/CATCH) LINING LAYER/MICRO IF IND.Generic External Data ProviderStart: 60-54-1760VRW CBC WITH AUTO DIFF Generic External Data ProviderStart: 22-73-4280VEU screeningDR RACHEAL Monk on above:Performed By: #### PSAD #### [facility] [address] [place] [address] Dr. Juliet WilkesStart: 78-45-1176XU guided biopsyJENNIFER DAVID Comment on above:LIVER. NO SEDATION.Start: 07-15-2016 ColonoscopyTulio Ruggiero MD Work Phone: Arthroscopy of kneeJENNIFER DAVID Bilateral cataracts (disorder)ABIODUN HERNANDEZ H/O: vasectomyJENNIFER DAVID Titanium (substance)ABIODUN DAVID Comment on above:ToeTonsillectomyJENNIFER DAVID Plan of Treatment DateCare ActivityDetailAuthorStart: 62-48-0050Vefczhjztfl Syncytial Virus (RSV) or age 60 yrs+ (1 - 1-dose 75+ series)Respiratory Syncytial Virus (RSV) or age 60 yrs+ (1 - 1-dose 75+ series)[facility] SystemsStart: 75-57-9610Ygzirgwqx for malignant neoplasm of colonNOIA HealthcareStart: 99-42-9814Aniev screening for proteinDiabetes: Urine Protein ScreeningNOIA HealthcareStart: 08-16-2025 End: 70-07-6072Tewtivr encounter /03/2026 9:00 AM EST Office Visit [facility] [address] [place] [address] Tulio Ruggiero MD [address] [place] [phone] [facility] FMStart: 38-55-7570Fifvtqyxr vaccinationInfluenza Vaccine (#1)[facility] HealthcareStart: 22-71-0560Taodwgdy screeningDiabetes: Retinopathy Screening [facility] HealthcareStart: 80-40-8858Cpqujwbhm vaccinationFlu vaccine (#1)[facility] SystemsStart: 82-05-7812Hvlem screening for proteinDiabetes: Urine Protein ScreeningSaint John's Aurora Community HospitalStart: 01-12-2025 End: 72-18-8400Vbepgubyce A1c/Hemoglobin.total in BloodHemoglobin A1c Lab Routine Type 2 diabetes mellitus with hyperglycemia, without long-term current use of insulin (HCC) Expected: 01/12/2025 (Approximate), Expires: 01/12/2026NOIA HealthcareComment on above:Expected: 01/12/2025 (Approximate), Expires: 01/12/2026Start: 01-12-2025 End: 74-72-0550Abjpywxtwxwj/Creatinine panel in random UrineMicroalbumin / creatinine, urine ratio Lab Routine Type 2 diabetes mellitus with hyperglycemia, without long-term current use of insulin (HCC) Expected: 01/12/2025 (Approximate), Expires: 01/12/2026[facility] Work Phone: Comment on above:Expected: 01/12/2025 (Approximate), Expires: 01/12/2026Start: 01-12-2025 End: 11-39-3343Vqrwtco encounter procedureNOWEATHERFORD REGION[facility] FMComment on above:Arrived Start: 10-19-2024 End: 92-29-9864Dvqjqtl antibody IgGRubeola antibody IgG Lab Routine Annual physical exam Expected: 10/19/2024 (Approximate), Expires: 10/19/2025[facility] Work Phone: Comment on above:Expected: 10/19/2024 (Approximate), Expires: 10/19/2025Start: 10-13-2024 End: 71-80-5825Gthvdjc encounter aoelxwcpr18/02/2025 1:15 PM EDT Office Visit [facility] [address] [place] [phone] Tulio Ruggiero MD [address] [place] [address] ArrivedGOLETA VALLEY [facility] FMComment on above:ArrivedStart: 54-77-9163BDFTF-19 Vaccine ( season)COVID-19 Vaccine ( season)[facility] SystemsStart: 08-05-2024 End: 50-80-1458Vxlvz metabolic 1998 panel - Serum or PlasmaBasic metabolic panel Lab Routine Encounter for long-term current use of medication Expected: 2024 (Approximate), Expires: 08/05/2025NOIA HealthcareComment on above:Expected: 08/05/2024 (Approximate), Expires: 08/05/2025Start: 08-05-2024 End: 30-38-0177KSX W Auto Differential panel - BloodCBC and differential Lab Routine Encounter for long-term current use of medication Expected: 08/05/2024 (Approximate), Expires: 08/05/2025[facility] HealthcareComment on above:Expected: 08/05/2024 (Approximate), Expires: 08/05/2025Start: 08-05-2024 End: 32-09-2919Yrajysvdvq A1c/Hemoglobin.total in BloodHemoglobin A1c Lab Routine Type 2 diabetes mellitus with hyperglycemia, without long-term current use of insulin ([facility]) Expected: 08/05/2024 (Approximate), Expires: 08/05/2025 [facility] Work Phone: Comment on above:Expected: 08/05/2024 (Approximate), Expires: 08/05/2025Start: 08-05-2024 End: 01-58-9106Wbvvuje function 2000 panel - Serum or PlasmaHepatic function panel Lab Routine Encounter for long-term current use of medication Expected: 08/05/2024 (Approximate), Expires: 08/05/2025[facility] HealthcareComment on above: Expected: 08/05/2024 (Approximate), Expires: 08/05/2025Start: 08-05-2024 End: 38-28-4446Nzrxd 1996 panel - Serum or PlasmaLipid panel Lab Routine Dyslipidemia ([facility]) Expected: 08/05/2024 (Approximate), Expires: 08/05/2025 [facility] HealthcareComment on above:Expected: 08/05/2024 (Approximate), Expires: 08/05/2025Start: 08-05-2024 End: 16-85-6982Xdvgzgml specific Ag [Mass/volume] in Serum or PlasmaPSA Lab Routine Screening PSA (prostate specific antigen) Expected: 08/05/2024 (Approximate), Expires: 08/05/2025[facility] HealthcareComment on above:Expected: 08/05/2024 (Approximate), Expires: 08/05/2025Start: 08-05-2024 End: 93-22-6993Mvklywdvyir [Units/volume] in Serum or PlasmaTSH Lab Routine Class 2 severe obesity due to excess calories with serious comorbidity and body mass index (BMI) of 37.0 to 37.9 in adult ([facility]) Expected: 08/05/2024 (Approximate), Expires: 08/05/2025[facility] HealthcareComment on above:Expected: 08/05/2024 (Approximate), Expires: 08/05/2025Start: 83-43-4309Dgytbxopcr A1c measurementDiabetes: Hemoglobin F6FZDES HealthcareStart: 07-15-2024 End: 51-33-2778Tfxte metabolic 1998 panel - Serum or PlasmaBasic metabolic panel Lab Routine Annual physical exam Expected: 07/15/2024 (Approximate), Expires: 07/15/2025[facility] HealthcareComment on above:Expected: 07/15/2024 (Approximate), Expires: 07/15/2025Start: 07-15-2024 End: 79-44-2457MFZ W Auto Differential panel - BloodCBC and differential Lab Routine Annual physical exam Expected: 07/15/2024 (Approximate), Expires: 0 07/15/2025[facility] HealthcareComment on above:Expected: 07/15/2024 (Approximate), Expires: 07/15/2025Start: 07-15-2024 End: 42-94-5486Jzkcwldejq A1c/Hemoglobin.total in BloodHemoglobin A1c Lab Routine Annual physical exam Expected: 07/15/2024 (Approximate), Expires: 07/15/2025[facility] Work Phone: Comment on above:Expected: 07/15/2024 (Approximate), Expires: 07/15/2025Start: 07-15-2024 End: 53-27-1350Zzslboo function 2000 panel - Serum or PlasmaHepatic function panel Lab Routine Annual physical exam Expected: 07/15/2024 (Approximate), Expires: 07/15/2025[facility] HealthcareComment on above:Expected: 07/15/2024 (Approximate), Expires: 07/15/2025Start: 07-15-2024 End: 99-81-7931Xlxxf 1996 panel - Serum or PlasmaLipid panel Lab Routine Annual physical exam Expected: 07/15/2024 (Approximate), Expires: 07/15/2025[facility] HealthcareComment on above:Expected: 07/15/2024 (Approximate), Expires: 07/15/2025Start: 07-15-2024 End: 65-94-9626Xrlnfzih specific Ag [Mass/volume] in Serum or PlasmaPSA Lab Routine Annual physical exam Expected: 07/15/2024 (Approximate), Expires: 07/15/2025[facility] HealthcareComment on above:Expected: 07/15/2024 (Approximate), Expires: 07/15/2025Start: 07-15-2024 End: 04-97-0159Wjqdhvitrpr [Units/volume] in Serum or PlasmaTSH Lab Routine Annual physical exam Expected: 07/15/2024 (Approximate), Expires: 07/15/2025[facility] HealthcareComment on above:Expected: 07/15/2024 (Approximate), Expires: 07/15/2025Start: 07-15-2024 End: 04-57-4465Dvpoicn encounter procedureNOMS CWM FMComment on above:Arrived Start: 04-85-8412Vgrljqpdk vaccinationInfluenza Vaccine (#1)[facility] Start: 03-52-0967Kyrcriztxn A1c measurementDiabetes: Hemoglobin C0LENUN HealthcareStart: 98-22-9354Ljawyewcpjab 50+ years Vaccine (2 of 2 - PCV) Pneumococcal 50+ years Vaccine (2 of 2 - PCV)[facility] SystemsStart: 56-09-7983Ypdryjtdzfsn Vaccine: 65+ Years (2 of 2 - PCV)Pneumococcal Vaccine: 65+ Years (2 of 2 - PCV)[facility] HealthcareStart: 77-91-9563Yqrtarpr vaccine (1 of 2)Shingles vaccine (1 of 2)[facility] SystemsStart: 89-83-3333Pwlplkwls for malignant neoplasm of colonCommunity Health SystemsStart: 82-39-0960Njkgx panelLipidsCommunity Health SystemsStart: 66-55-6706UFtY/Tdap/Td vaccine (1 - Tdap)DTaP/Tdap/Td vaccine (1 - Tdap)[facility] SystemsStart: 1975 Urine screening for proteinDiabetes: Urine Protein ScreeningSaint John's [facility] Hospital Start: 98-29-1504Mutawjbvh C screeningHepatitis C screenCommunity Health Systems Start: 55-63-6812Lsywbkhudv ScreenDepression [facility] Start: 14-63-8951Ungbxsptx for malignant neoplasm of colonLAY[facility]OS[facility] Healthcare Immunizations Immunization DateImmunizationNotesCare BjbzkhvyTelaslns84-24-7875eptzuglvi virus vaccine, unspecified formulationJENNIFER DAVID [facility]10-08-2023SARS-CoV-2 mRNA (tozinameran 5y-11y) vaccineJENNIFER DAVID 538-8916Tcmdpc-EvqpcGreene [facility] on above: Result Comment: covid 19 mRNA (cvs)18-74-5564ziqlpdfeo virus vaccine, unspecified formulationTulio Ruggiero MD Work Phone: NOSaint [facility] Health ServicesHhxbiqjtbp75-85-6206umryofuyj virus vaccine, unspecified formulationJENNIFER DAVID [facility]09-10-2022SARS-CoV-2 (COVID-19) mRNAMUL.ORD!l28954DNFSCEMS DAVID [facility]04-12-2022SARS-CoV-2 mRNA (ifznlrkyaua-sbfm-ffxhqei) vaccineJENNIFER DAVID [facility]11-14-2021pneumococcal polysaccharide vaccine, 23 valentJENNIFER DAVID [facility]10-24-2021SARS-CoV-2 (COVID-19) mRNA BNT-162b2 vaxJENNIFER DAVID [facility] on above:Result Comment: 2022-05-29: BRW1247-74-7470vlnxvmkex virus vaccine, unspecified formulationJENNIFER DAVID [facility]03-08-2021SARS-CoV-2 (COVID-19) mRNA BNT-162b2 vaxJENNIFER DAVID General Surgery Pheugwju09-50-4795nnrykwhts virus vaccine, unspecified formulationJENNIFER DAVID General Surgery Gxnbnvgz14-19-1513nwssdufaw virus vaccine, unspecified formulationJENNIFER DAVID [facility]10-08-2018influenza virus vaccine, unspecified formulationJENNIFER DAVID [facility]09-11-2018influenza virus vaccine, unspecified formulationJENNIFER DAVID [facility]10-19-2013influenza virus vaccine, unspecified formulationJENNIFER DAVID [facility] Payers DatePayer CategoryPayerPolicy [id number] [id number] 2023Medicare2023 [id number] [id number] [id number] 2.16.840.1.498915.19 [id number] [id number] 2.16.840.1.673863.3.57[id number] 2.16.840.1.584809.3.57[id number] 2.16.840.1.826554.3.57[id number] 2.16.840.1.671892.3.57[id number] 2.16.840.1.063686.3.57[id number] 2.16.840.1.636954.3.57[id number] 2.16.840.1.133337.3.57[id number] 2.16.840.1.196764.3.57[id number] 2.16.840.1.254134.3.57[id number] 2.16.840.1.278888.3.579.2.02070-94-6528Zoqqrfl1980745 2.16.840.1.747561.3.579.2.98853-57-5103Sqffwtr7774876 2.16.840.1.401258.3.579.2.59227-43-4353Coqjqyi7132938 2.16.840.1.238128.3.579.2.43868-02-8906Bozktxy4144825 2.16.840.1.359492.3.579.2.89366-83-4066Zgejxpv9213547 2.16.840.1.009984.3.579.2.87111-07-0805Pkzdslb6621921 2.16.840.1.405546.3.579.2.71716-44-8678Udiaxhw6530877 2.16.840.1.100342.3.579.2.05302-94-7233Rnajgkt7823163 2.16.840.1.620976.3.579.2.03712-58-5308Qkyhnos9589717 2.16.840.1.580505.3.579.2.03931-47-5861Blvcxee3447207 2.16.840.1.125544.3.57[id number] 2.16840.1.793005.3.579.2.06361-66-0966Uyoamcf1703850 2.16.840.1.692498.3.579.2.59013-23-3650Tddossp7042873 2.16.840.1.617679.3.579.2.11602-58-1348Kthodht1471906 2.16.840.1.404524.3.579.2.48720-86-9965Uwwqwzw9387497 2.16.840.1.090475.3.579.2.74067-87-9546Btukyxc7828175 2.16.840.1.468009.3.579.2.42931-53-7278Uegqkqm7023497 2.16.840.1.533226.3.579.2.92389-00-2627Qngxpoo4030068 2.16.840.1.403954.3.579.2.12738-87-0382Ilwwsmt3804777 2.16.840.1.587386.3.579.2.11015-31-4508Ycfxrij6420036 2.16.840.1.435214.3.579.2.16242-79-5686Mgvmaui4050979 2.16.840.1.654809.3.579.2.70148-85-3496Textvwz7040291 2.16.840.1.208341.3.579.2.32143-25-5599Lzydbug3677496 2.16.840.1.998205.3.579.2.00013-88-9454Sgjkjry8185832 2.16.840.1.663742.3.579.2.28534-89-0907Ifqjahr4710473 2.16840.1.533712.3.579.2.18922-06-5019Rsmdjoe5190090 2.16.840.1.601123.3.579.2.20526-69-8918Cjjavgo8468063 2.16.840.1.482692.3.579.2.91584-79-6696Slbmsbc4045821 2.16.840.1.107466.3.579.2.58439-74-1280Wmuyjgq1860047 2.16840.1.571116.3.579.2.36422-42-6146Nmrwcyi5247708 2.16.840.1.356820.3.579.2.37384-47-0495Llieppn213851973 2.16.840.1.812176.3.579.2.05570-07-3063Xegiquo115635141 2.16.840.1.380128.3.579.2.67284-95-3482Tudhgze97534839 2.16.840.1.781458.3.579.2.193185-96-8811Pixialm1989818 2.16.840.1.336569.3.579.2.305767-68-7615Fjxzwge5237481 2.16.840.1.725457.3.579.2.491965-04-0215Lsrqhxa44027266 2.16.840.1.912405.3.579.2.47583-56-2096Wdcekqj26141460 2.16.840.1.691430.3.579.2.61281-58-0190Wnijalg99679251 2.16.840.1.265325.3.579.2.727 Social History DateTypeDetailFacilityStart: 01-12-2024 End: 70-71-5926Kho Assigned At BirthPark[facility] Health [facility] Hospitaltart: 03-10-2023 End: 34-57-3592Hecmujj smoking statusNever smoked tobacco (finding)[facility] smoking statusNever [facility] Centertart: 03-10-2023 Tobacco use and exposureSmokeless tobacco non-userNOMS HealthcareStart: 01-12-2024 End: 79-60-6677Mppjabt of Social functionNOMS HealthcareStart: 99-63-1372Jdu assigned at birthNot on fileLAY[facility] HealthcareTobacco smoking status NHISTobacco smoking consumption unknownCommunity Health SystemsStart: 34-33-8938VieWnqj (finding)[facility] Functional Status UxdaAlwghplzghFmsizfCyozapga66-83-8445Lymrmpefei StatusN/A[facility]04-23-2024Functional StatusN/A[facility]11-21-2023Functional StatusN/A [facility] Clinical Notes 04-12-2021 to 01-12-2025 Note Date & HmrgUsihHbnngbey36-57-4100 History of Present illness Narrative* Tulio Ruggiero MD - 01/12/2025 9:44 AM EDTAssociated Problem(s): Type 2 diabetes mellitus with hyperglycemia, without long-term current use of insulin ([facility]) Reports BS controlled and due for A1C. Stick to ADA diet and limit carbs. * Tulio Ruggiero MD - 01/12/2025 9:44 AM EDTAssociated Problem(s): Seasonal allergic rhinitis due to pollen Symptoms controlled with medication and continue. * Tulio Ruggiero MD - 01/12/2025 9:43 AM EDTAssociated Problem(s): Primary insomnia Sleeping well with medication and continue. * Tulio Ruggiero MD - 01/12/2025 9:43 AM EDTAssociated Problem(s): DDD (degenerative disc disease), lumbar Pain stable and follow with pain management. * Tulio Ruggiero MD - 01/12/2025 9:43 AM EDTAssociated Problem(s): Class 2 severe obesity due to excess calories with serious comorbidity and body mass index (BMI) of 37.0 to 37.9 in adult ([facility]) Weight loss indicated. * Tulio Ruggiero MD - 01/12/2025 9:43 AM EDTAssociated Problem(s): Arthritis, gouty No flares and continue allopurinol. * Tulio Ruggiero MD - 01/12/2025 9:00 AM EDT Images from the original note were not included. Subjective Patient ID: Carlos Caraballo is a 69 y.o. male who [...] index (BMI) of37.0 to 37.9 in adult ([facility]) Weight loss indicated. Type 2 diabetes mellitus with hyperglycemia, without long-term current use of insulin ([facility]) - Primary Reports BS controlled and due for A1C. Stick to ADA diet and limit carbs. Relevant Orders Microalbumin / creatinine, urine ratio Hemoglobin A1c Seasonal allergic rhinitis due to pollen Symptoms controlled with medication and continue. Primary insomnia Sleeping well with medication and continue. documented in this encounterSaint John's [facility] Community HospitalKhpakhpzky95-37-7182 History of Present illness Narrative* Tulio Ruggiero MD - 10/13/2024 1:51 PM EDTAssociated Problem(s): Abscess of abdominal wall Recent abscess but improved after drainage. Use heat PRN. Treat with bactrim. Cover with neosporin. * Tulio Ruggieor MD - 10/13/2024 1:15 PM EDT Images from the original note were not included. Subjective Patient ID: Carlos Caraballo is a 69 y.o. male who [...] 800-160 MG per tablet documented in this encounterSaint John's Aurora Community HospitalYsflhuztsw62-39-7748 NoteProcedure: AP view of the orbits. Clinical Information: 68-year-old male with [...] Is Signed, Electronically Signed in Other Vendor System)[facility]01-02-2025 History of Present illness Narrative* Tulio Ruggiero MD - 07/15/2024 9:51 AM ESTAssociated Problem(s): Dyslipidemia (CMS/HCC) Due for labs. * Tulio Ruggiero MD - 07/15/2024 9:50 AM ESTAssociated Problem(s): Class 2 severe obesity due to excess calories with serious comorbidity and body mass index (BMI) of 37.0 to 37.9 in adult ([facility]) Weight down 9 pounds in past year. Continue exercise and diet changes. * Tulio Ruggiero MD - 07/15/2024 9:49 AM ESTAssociated Problem(s): Polyneuropathy due to type 2 diabetes mellitus ([facility]) Neuropathy stable and continue neurontin. * Tulio Ruggiero MD - 07/15/2024 9:48 AM ESTAssociated Problem(s): Type 2 diabetes mellitus with hyperglycemia, without long-term current use of insulin ([facility]) Reports BS controlled and due for A1C. Stick to ADA diet and limit carbs. * Tulio Ruggiero MD - 07/15/2024 9:48 AM ESTAssociated Problem(s): Encounter for preoperative assessment Able to proceed with upcoming surgery at low risk for complications. History of DM but controlled with medication. No CAD or HTN. Not having chest pain or palpitations. Recommend routine PAT. * Tulio Ruggiero MD - 07/15/2024 9:47 AM ESTAssociated Problem(s): Annual physical exam Due for labs. Discussed proper diet and regular aerobic exercise. Need aerobic exercise 5-6 days a week for 30 minutes at a time. Smaller portions and limit total calories. Colonoscopy every 10 years. Tetanus every 10 years. Advised not to smoke. Discussed daily Aspirin therapy. * Tulio Ruggiero MD - 07/15/2024 9:00 AM EST Images from the original note were not included. Subjective Patient ID: Carlos Caraballo is a 68 y.o. male who presents [...] SOB or cough. Reports BS controlled around 90- 100. Tries to eat well and stick [...] index (BMI) of37.0 to 37.9 in adult ([facility]) Weight down 9 pounds in past year. Continue exercise and diet changes. Type 2 diabetes mellitus with hyperglycemia, without long-term current use of insulin ([facility]) Reports BS controlled and due for A1C. Stick to ADA diet and limit carbs. Polyneuropathy due to type 2 diabetes mellitus ([facility]) Neuropathy stable and continue neurontin. [...] palpitations. Recommend routine PAT. documented in this encounterSaint John's Aurora Community HospitalMtdbthjdpg55-51-2674 Hospital Discharge instructions Patient Education 05/27/2024 09:56:36 Kidney Stones, Rdxf-aw-Ntil Kidney Stones Kidney stones are rock-like masses [...] Follow these instructions at home: Medicines Take rwxt-rts-dzqleny and prescription medicines only as told by [...] provider. Document Revised: 02/21/2023 Document Reviewed: 02/21/2023 [employer] Patient Education 2023 [employer]. Follow Up Care 11/04/2023 09:32:44 With:ABIODUN HERNANDEZ PA-C, URL Address: When:1 year [facility] 11-14-2024 NotePatient Education Urology Kidney Stones Kidney stones are [...] these instructions at home: Medicines ??? Take knzo-fav-zzheszd and prescription medicines only as told by [...] provider. Document Revised: 02/21/2023 Document Reviewed: 02/21/2023 [employer] Patient Education ? 2023 [employer].[facility] 11-04-2023 Hospital Discharge instructions Patient Education 11/04/2023 09:28:50 Erectile Dysfunction Erectile Dysfunction Erectile dysfunction (ED) is the inability to get or keep an erection in order to have sexual intercourse. ED is considered a symptom of an underlying disorder and is not considered a disease. ED mayinclude: Inability to get an erection. Lack of [...] back or pelvic injuries, multiple sclerosis, Parkinson's disease,spinal cord injury, and stroke. Certain medicines, such [...] or the penis may be too curved toallow for intercourse. Never having nighttime or morning [...] penis. During this procedure, a blood vessel froma different part of the body is placed into the penis to allow blood to flow around (bypass) damaged or blocked blood vessels. Lifestyle changes, such as exercising more, losing weight, and quitting smoking. Follow these instructions at home: Medicines Take wqlq-thb-jyipioy and prescription medicines only as told by your health care provider. Do not increase the dosage without first discussing it with your health care provider. If you are using self-injections, do injections as directed by your health care provider. Make sureyou avoid any veins that are on the surface of the penis. After giving an injection, apply pressureto the injection site for 5 minutes. Talk [...] you need help quitting, ask your health careprovider. Before using a vacuum pump, read the instructions that come with the pump and discuss any questionswith your health care provider. Keep all follow-up [...] provider. Document Revised: 09/26/2021 Document Reviewed: 09/26/2021 [employer] Patient Education 2022 [employer]. Follow Up Care 06/03/2023 10:28:55 With:ABIODUN HERNANDEZ PA-C, URL Address: [facility] [place] [id number] When: Unknown [facility] 11-21-2023 Hospital Discharge instructions Patient Education 06/03/2023 10:23:43 Prostate Cancer Screening Prostate Cancer Screening Prostate cancer screening is testing that is done to check for the presence of prostate cancer in men. The prostate gland is a walnut-sized gland that is located below the bladder and in front of therectum in males. The function of the prostate is to add fluid to semen during ejaculation. Prostatecancer is one of the most common types of cancer in men. Who should have prostate cancer screening? Screening recommendations vary based on age and other risk factors, as well as between the professional organizations who make the recommendations. In general, screening is recommended if: You are age 50 to 70 and have an average risk for prostate cancer. You should talk with your healthcare provider about your need for screening and [...] diagnosed with prostate cancer. The risk is higherif your family member's cancer occurred at an early age or if you have multiple family members withprostate cancer at an early age. ?Being a [...] is a blood test called the prostate-specific antigen(PSA) test. PSA is a protein that is [...] treatment? Where to find more information The [employer]: www.cancer.org [employer]: www.auanet.org Contact a health care [...] the recommended screening test for prostate cancer, butit has associated risks. Discuss the risks and [...] provider. Document Revised: 12/24/2021 Document Reviewed: 12/24/2021 [employer] Patient Education 2022 [employer]. Follow Up Care 05/29/2022 11:47:27 With:DAVID IVAN, ABIODUN Juarez, URL Address: [address] [place] [address] [phone] When: Unknown Comments:6 mos w/ PSA [facility] 05-23-2023 NotePROCEDURE: XR FOOT LT MIN 3 VIEWS HISTORY: Pain in left [...] No acute abnormality. Electronically authenticated by: ELIN MCCARTNEY Date: 2022-12-03 09:57[facility]05-02-2023 NotePROCEDURE: XR FOOT LT MIN 3 VIEWS DATE: 11/12/2022 12:30 PM [...] Electronically authenticated by: ZAFAR FERRER Date: 2022-11-12 13:59[facility]04-11-2023 NotePROCEDURE: XR FOOT LT MIN 3 VIEWS HISTORY: Pain COMPARISON: XR [...] to intraoperative images. Electronically authenticated by: ELIN MCCARTNEY Date: 2022-10-22 07:48[facility] [id number] NotePROCEDURE: XR FOOT LT 2V HISTORY: Pain COMPARISON: XR foot left 10/21/2022 FINDINGS: BONES:Multiple intraoperative spot fluoroscopic images demonstrate mechanical fusion of the first metatarsophalangeal joint and resection of head of first proximal phalanx. IMPRESSION: 1. Surgical changes of left first toe as detailed above. Electronically authenticated by: ELIN MCCARTNEY Date: 2022-10-22 07:46[facility]01-18-2023 NoteCurrently stableUnTogus [facility]01-18-2023 NoteHypertension is well controlled 114/64 Continue lisinopril 5 mg Recent CR elevated 1.59- his cr typically has been 1.2-1.4 - He has been on antibiotics for Lt foot infection- DFU with wound care. [facility]01-18-2023 NoteLipid abnormalities are currently well controlled with lipitor 20 mg- LDL currently 58.6 on labs 07/26/2022 Liver function 04/2022 were normalUnTogus VA Medical Center01-18-2023 NoteUTP CARDIOLOGY PROGRESS NOTE HPI: Carlos Caraballo is a 66 y.o. male here for Hyperlipidemia, Hypertension, and history of PE Patient here for 6 mo follow up history of PE and hyperlipidemia. Had labs in Apr and echo in Jun 2022. Patient denies chest pain, SOB, and increase in LE edema. Doing very well from cardiac standpoint. Was seeing Dr. Steele for his varicose veins. Currently being treated [...] stable RTC 1 year or earlier if neededUnTogus VA Medical Center01-18-2023 NotePatient here for 6 mo follow up history of PE and hyperlipidemia. Had labs in Apr and echo in Jun 2022. Patient denies chest pain, SOB, and increase in LE edema. Doing very well from cardiac standpoint. Was seeing Dr. Steele for his varicose veins. Review of Systems Cardiovascular: Positive for leg swelling. All other systems reviewed and are negative.[facility] 07-31-2022 NoteCONSULTATION PROCEDURE DATE: 07/31/2022 INDICATIONS: This is a [...] up in the clinic in three months' time.[facility] [id number] Note CONSULTATION CONSULTATION DATE: 07/25/2022 HISTORY OF [...] a [place] vacation, where he visited multiple [employer] mayes and had a lot of increased [...] this plan and will be contacted upon approval.[facility] [id number] NotePROCEDURE: XR FOOT LT MIN 3 VIEWS HISTORY: Pain in left foot ; infection left first toe COMPARISON: None. FINDINGS: BONES:No fracture, dislocation, cortical disruption, or appreciable trabecular lucency. Scattered mild degenerative changes. SOFT TISSUES:Mild distal dorsal soft tissue swelling. EFFUSION:None visible. OTHER: Negative. IMPRESSION: 1. No acute bone abnormality. Degenerative changes. 2. No suspicious findings to suggest osteomyelitis. Electronically authenticated by: ELIN MCCARTNEY Date: 2022-07-24 10:21[facility] [id number] NotePROCEDURE: XR KNEE LT 4V or > HISTORY: Pain in left knee ; chronic left knee pain COMPARISON: XR knee bilateral 05/31/2021 FINDINGS: BONES:Marked narrowing of the medial joint space with suspected weta-cp-nbqj articulation. Moderate-marked narrowing of the lateral compartment. Mild narrowing of anterior compartment. Small periarticular osteophytes involving the margins of all 3 compartments. No fracture or dislocation. SOFT TISSUES:No visible soft tissue swelling. EFFUSION:Small joint effusion. OTHER: Negative. IMPRESSION: 1. Marked degenerative joint disease. Stable to minimally progressed. Electronically authenticated by: ELIN MCCARTNEY Date: 2022-06-10 19:35[facility]11-10-2022 Evaluation note* Encounter Date Diagnosis Assessment Notes Treatment Notes Treatment Clinical Notes May, Pain in right knee (ICD-10 - M25 .561) May,rthritis of knee, right (ICD-10 - M17.11) May,rthritis of knee, left (ICD-10 - M17.12)We performed a 1/1cc marcaine / kenalog cortisone injection into the bilateral knee joints under dahlia rile technique. Patient tolerated the injection well without adverse reaction. May,ain in left knee (ICD-10 - M25.562) [facility] Other 10-11-2022 NoteCONSULTATION CONSULTATION DATE: 04/23/2022 CHIEF [...] the time being. CC: Felisa Berrios M.D.[facility] [id number] NoteCONSULTATION CONSULTATION DATE: 04/04/2022 HISTORY OF PRESENT [...] indicated. Patient agreed with plan of care.[facility] [id number] Note CONSULTATION CONSULTATION DATE: 02/14/2022 HISTORY OF [...] time unless otherwise indicated. Patient acknowledges understanding.[facility] [id number] NoteCONSULTATION PROCEDURE DATE: 02/14/2022 PREOPERATIVE DIAGNOSIS: Bilateral [...] will be followed up in the office.[facility] [id number] Evaluation note* Encounter Date Diagnosis Assessment Notes Treatment Notes Treatment Clinical Notes Jul, Pain in right knee (ICD-10 - M25 .561) Jul,rthritis of knee, right (ICD-10 - M17.11) Extensive discussion about current condition and treatment options available. We performed a marcaine / kenalog cortisone injection into the bilateral knee joint under sterile technique. Patient tolerated the injection well without adverse reaction. Jul,rthritis of knee, left (ICD-10 - M17.12) Jul,ain in left knee (ICD-10 - M25.562) [facility] Other 09-30-2021 Evaluation note* Encounter Date Diagnosis Assessment Notes Treatment Notes Treatment Clinical Notes Mar, Liver hemangioma (ICD-10 - D18.0 3) Mar,NASH (nonalcoholic steatohepatitis) (ICD-10 - K75.81) [facility] Other Evaluation + Plan note Future Appointments Appointment Date:11/04/2023 08:30:00 AM Scheduled Provider:ABIODUN HERNANDEZ PA-C Location:[facility] Appointment Type:URO Office Visit Diagnostic Tests Pending * PSA Total 06/03/23 [facility] evaluation + Plan note Future Appointments Appointment Date:05/25/2024 08:40:00 AM Scheduled Provider:ABIODUN HERNANDEZ PA-C Location:[facility] Appointment Type:URO Office Visit [facility] evaluation note* Diagnosis Polyneuropathy due to type 2 diabetes mellitus ([facility]/HCC) [facility] encounter [facility]* Diagnosis Male hypogonadism Other testicular hypofunction documented in this encounter [facility]* Diagnosis Annual physical exam- Primary Routine general medical examination at a health care facility Type 2 diabetes mellitus with hyperglycemia, without long-term current use of insulin (CMS/[facility]) Type 2 diabetes mellitus with [...] hyperglycemia, without long-term current use of insulin ([facility]/HCC) Arthritis, gouty Gouty arthropathy, unspecified 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) Class 2 severe obesity due to excess calories with serious comorbidity and body mass index (BMI) of37.0 to 37.9 in adult (CMS/HCC) Dyslipidemia (CMS/HCC) Other and unspecified hyperlipidemia documented in [facility] encounter [facility]* Diagnosis Annual physical exam- Primary Routine general medical examination at a health care facility Type 2 diabetes mellitus with hyperglycemia, without long-term current use of insulin ([facility]) Type 2 diabetes mellitus with hyperglycemia, without long-term current use of insulin ([facility])- Primary Arthritis, gouty Gouty arthropathy, unspecified Seasonal allergic rhinitis due to pollen DDD (degenerative disc disease), lumbar Degeneration of lumbar or lumbosacral intervertebral disc Polyneuropathy due to type 2 diabetes mellitus ([facility]) Primary insomnia Persistent disorder of initiating or maintaining sleep Annual physical exam- Primary Routine general medical examination at a [facility] facility Encounter for preoperative assessment Type 2 diabetes mellitus with hyperglycemia, without long-term current use of insulin ([facility]) Arthritis, gouty Gouty arthropathy, unspecified Polyneuropathy due to type 2 diabetes mellitus ([facility]) Class 2 severe obesity due to excess calories with serious comorbidity and body mass index (BMI) of37.0 to 37.9 in adult ([facility]) Dyslipidemia ([facility]) Other and unspecified hyperlipidemia Type 2 diabetes mellitus with hyperglycemia, without long-term current use of insulin ([facility])- Primary Dyslipidemia ([facility]) Other and unspecified hyperlipidemia Class 2 severe obesity due to excess calories with serious comorbidity and body mass index (BMI) of37.0 to 37.9 in adult ([facility]) Encounter for long-term current use of medication Screening PSA (prostate specific antigen) Special screening for malignant neoplasm of prostate documented in this encounter [facility]* Diagnosis Annual physical exam- Primary Routine general medical examination at a [facility] facility Type 2 diabetes mellitus with hyperglycemia, without long-term current use of insulin ([facility]) Type 2 diabetes mellitus with hyperglycemia, without long-term current use of insulin ([facility])- Primary Arthritis, gouty Gouty arthropathy, unspecified Seasonal allergic rhinitis due to pollen DDD (degenerative disc disease), lumbar Degeneration of lumbar or lumbosacral intervertebral disc Polyneuropathy due to type 2 diabetes mellitus ([facility]) Primary insomnia Persistent disorder of initiating or maintaining sleep Annual physical exam- Primary Routine general medical examination at a [facility] care facility Encounter for preoperative assessment Type 2 diabetes mellitus with hyperglycemia, without long-term current use of insulin ([facility]) Arthritis, gouty Gouty arthropathy, unspecified Polyneuropathy due to type 2 diabetes mellitus ([facility]) Class 2 severe obesity due to excess calories with serious comorbidity and body mass index (BMI) of37.0 to 37.9 in adult ([facility]) Dyslipidemia ([facility]) Other and unspecified hyperlipidemia Morbid obesity ([facility]) Morbid obesity Polyneuropathy due to type 2 diabetes mellitus ([facility]) Type 2 diabetes mellitus with hyperglycemia, without long-term current use of insulin ([facility]) documented in this encounter [facility]* Diagnosis Annual physical exam- Primary Routine general medical examination at a health care facility Type 2 diabetes mellitus with hyperglycemia, without long-term current use of insulin ([facility]) Type 2 diabetes mellitus with hyperglycemia, without long-term current use of insulin ([facility])- Primary Arthritis, gouty Gouty arthropathy, unspecified Seasonal allergic rhinitis due to pollen DDD (degenerative disc disease), lumbar Degeneration of lumbar or lumbosacral intervertebral disc Polyneuropathy due to type 2 diabetes mellitus ([facility]) Primary insomnia Persistent disorder of initiating or maintaining sleep Annual physical exam- Primary Routine general medical examination at a health care facility Encounter for preoperative assessment Type 2 diabetes mellitus with hyperglycemia, without long-term current use of insulin ([facility]) Arthritis, gouty Gouty arthropathy, unspecified Polyneuropathy due to type 2 diabetes mellitus ([facility]) Class 2 severe obesity due to excess calories with serious comorbidity and body mass index (BMI) of37.0 to 37.9 in adult ([facility]) Dyslipidemia ([facility]) Other and unspecified hyperlipidemia Abscess of abdominal wall- Primary Cellulitis and abscess of trunk documented in this encounter [facility]* Diagnosis Annual physical exam- Primary Routine general medical examination at a health care facility Type 2 diabetes mellitus with hyperglycemia, without long-term current use of insulin ([facility]) Type 2 diabetes mellitus with hyperglycemia, without long-term current use of insulin ([facility])- Primary Arthritis, gouty Gouty arthropathy, unspecified Seasonal allergic rhinitis due to pollen DDD (degenerative disc disease), lumbar Degeneration of lumbar or lumbosacral intervertebral disc Polyneuropathy due to type 2 diabetes mellitus ([facility]) Primary insomnia Persistent disorder of initiating or maintaining sleep Annual physical exam- Primary Routine general medical examination at a health care facility Encounter for preoperative assessment Type 2 diabetes mellitus with hyperglycemia, without long-term current use of insulin ([facility]) Arthritis, gouty Gouty arthropathy, unspecified Polyneuropathy due to type 2 diabetes mellitus ([facility]/HCC) Class 2 severe obesity due to excess calories with serious comorbidity and body mass index (BMI) of37.0 to 37.9 in adult ([facility]) Dyslipidemia (CMS/HCC) Other and unspecified hyperlipidemia Abscess of abdominal wall- Primary Cellulitis and abscess of trunk Annual physical exam- Primary Routine general medical examination at a health care facility Morbid obesity ([facility]) Morbid obesity Polyneuropathy due to type 2 diabetes mellitus ([facility]) Type 2 diabetes mellitus with hyperglycemia, without long-term current use of insulin ([facility]) Arthritis, gouty Gouty arthropathy, unspecified documented [facility]* Diagnosis Annual physical exam- Primary Routine general medical examination at a health care facility Type 2 diabetes mellitus with hyperglycemia, without long-term current use of insulin ([facility]) Type 2 diabetes mellitus with hyperglycemia, without long-term current use of insulin ([facility])- Primary Arthritis, gouty Gouty arthropathy, unspecified Seasonal allergic rhinitis due to pollen DDD (degenerative disc disease), lumbar Degeneration of lumbar or lumbosacral intervertebral disc Polyneuropathy due to type 2 diabetes mellitus ([facility]) Primary insomnia Persistent disorder of initiating or maintaining sleep Annual physical exam- Primary Routine general medical examination at a health care facility Encounter for preoperative assessment Type 2 diabetes mellitus with hyperglycemia, without long-term current use of insulin ([facility]) Arthritis, gouty Gouty arthropathy, unspecified Polyneuropathy due to type 2 diabetes mellitus ([facility]) Class 2 severe obesity due to excess calories with serious comorbidity and body mass index (BMI) of37.0 to 37.9 in adult ([facility]) Dyslipidemia ([facility]) Other and unspecified hyperlipidemia Abscess of abdominal wall- Primary Cellulitis and abscess of trunk Male hypogonadism Other testicular hypofunction documented [facility] encounter [facility]* Diagnosis Annual physical exam- Primary Routine general medical examination at a health care facility Type 2 diabetes mellitus with hyperglycemia, without long-term current use of insulin ([facility]) Type 2 diabetes mellitus with hyperglycemia, without long-term current use of insulin ([facility])- Primary Arthritis, gouty Gouty arthropathy, [...] index (BMI) of37.0 to 37.9 in adult ([facility]) Dyslipidemia (CMS/HCC) Other and unspecified hyperlipidemia Abscess of abdominal wall- Primary Cellulitis and abscess of trunk 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) documented in this encounter [facility]* Diagnosis Annual physical exam- [...] index (BMI) of37.0 to 37.9 in adult ([facility]-HCC) Dyslipidemia Other and unspecified hyperlipidemia Type 2 [...] index (BMI) of37.0 to 37.9 in adult ([facility]) Type 2 diabetes mellitus with diabetic chronic kidney disease (HCC) Chronic kidney disease, stage 3a ([facility]) documented in this encounter [facility]* Diagnosis Aftercare following left knee joint replacement surgery documented in this encounter [facility] note* Diagnosis Annual physical exam- Primary Routine [...] hyperglycemia, without long-term current use of insulin ([facility]) Arthritis, gouty Gouty arthropathy, unspecified 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) Class 2 severe obesity due to excess calories with serious comorbidity and body mass index (BMI) of37.0 to 37.9 in adult ([facility]) Dyslipidemia Other and unspecified hyperlipidemia Type 2 diabetes mellitus with hyperglycemia, without long-term current use of insulin ([facility])- Primary Arthritis, gouty Gouty arthropathy, unspecified Seasonal allergic rhinitis due to pollen Primary insomnia Persistent disorder of initiating or maintaining sleep Degeneration of intervertebral disc of lumbar region with discogenic back pain Class 2 severe obesity due to excess calories with serious comorbidity and body mass index (BMI) of37.0 to 37.9 in adult ([facility]) Type 2 diabetes mellitus with diabetic chronic kidney disease (HCC) Chronic kidney disease, stage 3a ([facility]) 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) documented [facility] encounter [facility] Narrative - Reported* Type Description Date Medical History DM II Medical HistoryHTNMedical HistoryhyperlipidemiaMedical HistorygoutSurgical Historyknee surgerySurgical HistorytonsillectomySurgical Historyvasectomy Surgical Historysinus surgerySurgical Historyback injectionsHospitalization HistorySEE ABOVE SURGICAL HX [facility] Other Hospital course Narrative No data available for this section [facility] progress note No data available for this section [facility] Summary Purpose Family History No [...] section and content) DATE CREATED AUTHOR 03/29/2021 [facility] DATE CREATED AUTHOR AUTHOR'S ORGANIZ ATION 08/06/2022 [facility] DATE CREATED AUTHOR AUTHOR'S ORGANIZ ATION 12/20/2022 [facility] DATE CREATED AUTHOR AUTHOR'S ORGANIZ ATION 07/28/2024 [facility] DATE CREATED AUTHOR AUTHOR'S ORGANIZ ATION 01/14/2025 [facility] DATE CREATED AUTHOR AUTHOR'S ORGANIZ ATION 02/04/2025 [facility] DATE CREATED AUTHOR AUTHOR'S ORGANIZ ATION 03/31/2025 [facility] REASON FOR VISIT (unrecogniz ed section and content) ReasonCommentsMed RefillReasonOnset DateCommentsMed Jatojf4904/06/2024eason SaiumncdFcjegd-et6iCevnwlFvxltpsoSimguu-moMezg on stomach/ poppedReasonOnset DateCommentsMed Kwmcyh1811/08/2024ReasonOnset DateCommentsMed Ggrdhe0312/06/2024 Patient Care team informatio n (unrecognized section and content) Team MemberRelationshipSpecialtyStart DateEnd Date Tulio Ruggiero MD [address] [place] [phone] PCP - [place] Uvymlawuxu09/1/23 Tulio Ruggiero MD [address] [place] [address] PCP - GeneralFamily Medicine01/12/24Team MemberRelationshipSpecialtyStart DateEnd Date Tulio Ruggiero MD [address] [place] [address] PCP - [place] Vwcfcdtsgo92/1/23 Tulio Ruggiero MD [address] [place] [address] PCP - [facility] Medicine01/12/24Team MemberRelationshipSpecialtyStart DateEnd Date Tulio Ruggiero MD [address] [place] [phone] PCP - [place] Mjsdsjktnx34/1/23 Tulio Ruggiero MD [address] [place] [address] PCP - [facility] Medicine01/12/24Team MemberRelationshipSpecialtyStart DateEnd Date Tulio Ruggiero MD [address] [place] [address] PCP - [place] Ntuwddqmvb42/1/23 Tulio Ruggiero MD [address] [place] [address] PCP - Generalmily Medicine01/12/24Team MemberRelationshipSpecialtyStart DateEnd Date Tulio Ruggiero MD [address] [place] [address] PCP - [place] Jlbindivdt43/1/23 Tulio Ruggiero MD [address] [place] [address] PCP - GeneralFamily Medicine01/12/24Team MemberRelationshipSpecialtyStart DateEnd Date Tulio Ruggiero MD [address] [place] [address] PCP - [place] Xbchoeksmo27/1/23 Tulio Ruggiero MD [address] [place] [address] PCP - Generalmi Medicine01/12/24Team MemberRelationshipSpecialtyStart DateEnd Date Tulio Ruggiero MD [address] [place] [address] PCP - [place] Ohvxvgdnlm13/1/23 Tulio Ruggiero MD [address] [place] [address] PCP - Generalmily Medicine01/12/24Team MemberRelationshipSpecialtyStart DateEnd Date Tulio Ruggiero MD [address] [place] [address] PCP - GeneralFamily Medicine01/12/24Team MemberRelationshipSpecialtyStart DateEnd Date Tulio Ruggiero MD [address] [place] [address] PCP - GeneralFamily Medicine01/12/24Team MemberRelationshipSpecialtyStart DateEnd Date Tulio Ruggiero MD [address] [place] [address] PCP - GeneralFamily Medicine01/12/24Team MemberRelationshipSpecialtyStart DateEnd Date Tulio Ruggiero MD [address] [place] [address] PCP - GeneralFamily Medicine01/12/24Team MemberRelationshipSpecialtyStart DateEnd Date Tulio Ruggiero MD [address] [place] [address] PCP - GeneralFamily Medicine01/12/24Team MemberRelationshipSpecialtyStart DateEnd Date Tulio Ruggiero MD [address] [place] [address] PCP - GeneralFamily Medicine01/12/24Team MemberRelationshipSpecialtyStart DateEnd Date Tulio Ruggiero MD [address] [place] [address] PCP - GeneralFamily Medicine01/12/24Team MemberRelationshipSpecialtyStart DateEnd Date Tulio Ruggiero MD [address] [place] [address] PCP - GeneralFamily Medicine01/12/24Team MemberRelationshipSpecialtyStart DateEnd Date Tulio Ruggiero MD [address] [place] [address] PCP - GeneralFamily Medicine01/31/25 FOR RECORDS PERTAINING TO PATIENTS WHO ARE [...] BE BASED ON THE PRIMARY CLINICAL RECORDS. [employer] provides no warranty or guarantee of the accuracy or completeness of information in this document.
--- NOTE | 2025-05-04 08:23 | PM.CN ---
Consult Note: HPI Data of Consult Patient: known to practice within the last 3 years Consult date: 05/04/25 Requesting Physician: Gracie Chaudhry NP Primary Care Provider: Tulio Madrid MD Consult Narrative Reason for consult: chronic pain Narrative: Warner Caraballo a pleasant 69 year old male with chronic low back pain presents for evaluation. Notes pain severe today at 8/10 increasing with all activity, improves with sitting/lying. Pt has longstanding low back pain > 5 years unresponsive to greater than 6 weeks of PT and HEP, heat, ice, tylenol, NSAIDs. pt found benefit to prior lumbar RFAs, no recent imaging. prior lumbar xray consistent with multilevel degenerative changes and mild lumbar spondylolisthesis. pt denies numbness, tingling, weakness to BLE. utilizing diclofenac, gabapentin, tizanidine, tylenol. tramadol with mild relief. denies side effects. cc:: CC: Gracie Chaudhry NP Review of Systems ROS Musculoskeletal Reports: back pain; Denies: extremity pain PFSH PFSH Medical History Insomnia ?G47.00 - Insomnia, unspecified (ICD-10) Seasonal allergic rhinitis ?J30.2 - Other seasonal allergic rhinitis (ICD-10) Polyneuropathy due to type 2 diabetes mellitus ?E11.42 - Type 2 diabetes mellitus with diabetic polyneuropathy (ICD-10) Nonalcoholic fatty liver ?K76.0 - Fatty (change of) liver, not elsewhere classified (ICD-10) Hypogonadism Degenerative disc disease, lumbar ?M51.369 - Other intervertebral disc degeneration, lumbar region without mention of lumbar back pain or lower extremity pain (ICD-10) Pseudophakia ?Z96.1 - Presence of intraocular lens (ICD-10) Cataract ?H26.9 - Unspecified cataract (ICD-10) Lumbar spondylosis ?M47.816 - Spondylosis without myelopathy or radiculopathy, lumbar region (ICD-10) Diabetes mellitus ?E11.9 - Type 2 diabetes mellitus without complications (ICD-10) Knee pain ?M25.569 - Pain in unspecified knee (ICD-10) Back pain ?M54.9 - Dorsalgia, unspecified (ICD-10) Hypertension ?I10 - Essential (primary) hypertension (ICD-10) Gout ?M10.9 - Gout, unspecified (ICD-10) Sleep apnea ?G47.30 - Sleep apnea, unspecified (ICD-10) Hyperlipidemia ?E78.5 - Hyperlipidemia, unspecified (ICD-10) Myofascial pain ?M79.18 - Myalgia, other site (ICD-10) Lumbar stenosis with neurogenic claudication ?M48.062 - Spinal stenosis, lumbar region with neurogenic claudication (ICD-10) Bilateral primary osteoarthritis of knee ?M17.0 - Bilateral primary osteoarthritis of knee (ICD-10) Pulmonary embolism (07/2020) ?I26.99 - Other pulmonary embolism without acute cor pulmonale (ICD-10) COVID-19 (07/2020) ?U07.1 - COVID-19 (ICD-10) Kidney stones ?N20.0 - Calculus of kidney (ICD-10) Knee osteoarthritis ?M17.9 - Osteoarthritis of knee, unspecified (ICD-10) Fusion, toes ?Q70.20 - Fused toes, unspecified foot (ICD-10) Surgical History H/O sinus surgery ?Z98.890 - Other specified postprocedural states (ICD-10) History of vasectomy ?Z98.52 - Vasectomy status (ICD-10) S/P cataract extraction and insertion of intraocular lens ?Z98.49 - Cataract extraction status, unspecified eye (ICD-10) ?Z96.1 - Presence of intraocular lens (ICD-10) History of radiofrequency ablation (RFA) of nerve of lumbar spine ?Z98.890 - Other specified postprocedural states (ICD-10) S/P epidural steroid injection ?Z92.241 - Personal history of systemic steroid therapy (ICD-10) History of foot surgery ?Z98.890 - Other specified postprocedural states (ICD-10) History of tonsillectomy and adenoidectomy ?Z90.89 - Acquired absence of other organs (ICD-10) S/P right knee arthroscopy ?Z98.890 - Other specified postprocedural states (ICD-10) S/P left knee arthroscopy ?Z98.890 - Other specified postprocedural states (ICD-10) Family History Other Family history of diabetes mellitus Family history of hypertension Family history of prostate cancer Family history of stroke Social History Within the past year, how often did you have a drink containing alcohol: monthly or less Smoking status: Never smoker Non-prescribed substance use: denies use Previous occupational history: RETIRED Highest level of school completed/degree received: high school graduate Meds Home Medications and Allergies Home Medications ?Medication ?Instructions ?Recorded ?Confirmed ?Type acetaminophen 500 mg tablet 1,000 mg PO Q6H PRN pain 01/06/23 07/20/24 History (Acetaminophen Extra Strength) ascorbic acid (vitamin C) 500 mg 500 mg PO BID 01/06/23 08/23/24 History tablet (C-500) atorvastatin 20 mg tablet 20 mg PO DAILY 01/06/23 08/23/24 History cholecalciferol (vitamin D3) 25 1,000 unit PO BID 01/06/23 08/23/24 History mcg (1,000 unit) tablet (Vitamin D3) colchicine 0.6 mg tablet 0.6 mg PO TID 01/06/23 08/23/24 History diclofenac sodium 50 mg 50 mg PO BID 01/06/23 08/23/24 History tablet,delayed release febuxostat 40 mg tablet 40 mg PO DAILY 01/06/23 08/23/24 History gabapentin 300 mg capsule 300 mg PO TID 01/06/23 08/23/24 History lisinopril 5 mg tablet 5 mg PO DAILY 01/06/23 08/23/24 History metformin 500 mg tablet,extended 500 mg PO DAILY 01/06/23 08/23/24 History release 24 hr probenecid 500 mg tablet 500 mg PO BID 01/06/23 08/23/24 History tizanidine 4 mg tablet 8 mg PO .QHS PRN muscle spasticity 01/06/23 08/23/24 History naloxone 4 mg/actuation nasal 4 mg intranasal Q2M PRN opioid 06/16/24 07/20/24 Rx spray (Narcan) overdose #1 ea tramadol 50 mg tablet 50 mg PO BID PRN pain #60 tabs 07/19/24 08/23/24 Rx allopurinol 300 mg tablet 300 mg PO DAILY 07/20/24 08/23/24 History baclofen 20 mg tablet 20 mg PO QPM 07/20/24 08/23/24 History diazepam 10 mg tablet 10 mg PO TID PRN anxiety 07/20/24 08/23/24 History semaglutide 2 mg/dose (8 mg/3 mL) 2 mg subcut QWEEK 07/20/24 08/23/24 History subcutaneous pen injector (Ozempic) tadalafil 10 mg tablet 20 mg PO DAILY PRN sexual activity 07/20/24 08/23/24 History testosterone cypionate 200 mg/mL 200 mg IM Q14D 07/20/24 07/20/24 History intramuscular oil cyclobenzaprine 10 mg tablet See Rx Instructions .Route 08/09/24 08/23/24 Rx .COMPLEX PRN muscle spasm #30 tabs trazodone 50 mg tablet 50 mg PO .QHS 08/23/24 08/23/24 History cyclobenzaprine 10 mg tablet 10 mg PO BID PRN muscle spasm #180 09/13/24 Rx tabs tramadol 50 mg tablet 50 mg PO BID PRN pain #60 tabs 09/30/24 Rx tramadol 50 mg tablet 50 mg PO BID PRN pain #60 tabs 11/01/24 Rx diclofenac sodium 50 mg 50 mg PO BID #60 tabs 11/25/24 Rx tablet,delayed release tramadol 50 mg tablet 50 mg PO BID PRN pain #60 tabs 12/16/24 Rx diclofenac sodium 50 mg 50 mg PO BID PRN pain #60 tabs 12/27/24 Rx tablet,delayed release tramadol 50 mg tablet 50 mg PO BID PRN pain #60 tabs 01/19/25 Rx tramadol 50 mg tablet 50 mg PO BID PRN pain #60 tabs 03/07/25 Rx Allergies Allergy/AdvReac Type Severity Reaction Status Date / Time oxycodone AdvReac hyperactivi Verified 07/20/24 09:24 ty Exam Back & Pelvis Lumbar spine/lower back: pain with ROM, lumbar spinal tenderness and straight leg raise negative bilaterally Sacroiliac joints: SI joints normal Other: strength 5/5 in BLE sensation intact BLE positive facet loading Assessment and Plan Assessment and Plan (1) Lumbar spondylosis: (2) Degenerative disc disease (DDD) of lumbar region with axial back pain without leg pain: (3) Myalgia, other site: (4) Chronic use of opiate for therapeutic purpose: Assessment and Plan: I feel these medications are improving the patient's quality of life and allow them to tolerate activities of daily living as well as participate in recreational activity.? The patient does not report intolerable side effects. The patient is NOT opioid naive and non-pharmacologic and non-opioid treatment has failed to significantly relieve the patient's pain and improve functionality. The patient has a diagnosis that is related to a somatic or visceral pain etiology. ? ?? I reviewed with the patient the potential risks and side effects with the use of? opioid medications including but not limited to respiratory depression,? sedation, and even . Within the last 12 months I have verified the patient has access to naloxone should? these effects occur. The patient was advised to let? their family know they had Naloxone in case they would need to administer? the medication. I advised the patient to avoid the use of any other? sedation substances including alcohol, THC, and benzodiazepines while? taking opioid medications due to the risk of compounding side effects and? detrimental outcomes. within the last 12 months I have reviewed the [employer], pain treatment agreement and urine drug screen.? ?? A drug screen was completed within the last year, and no aberrancies were noted regarding their use of controlled substances. The patient understands they are subject to the terms and conditions of the pain contract that they have signed. ? ?? I have checked an [place] report on this patient today and there are no aberrancies noted in the prescribing history.? Plan The patient has had over 3 months of moderate to severe low back pain with functional impairment and inadequate response to conservative care including NSAIDS (unless there are contraindication such as concurrent blood thinners), multiple oral or topical pain medications, and home exercise program/physical therapy.? Patient has completed >6 weeks of guided home exercise program and/or formal physical therapy program without relief of their symptoms.? The Oswestry Disability Index was completed, and the patient scored a 16%.?? We discussed the risks and benefits of the procedure with the patient, and we are NOT planning on using sedation as outlined in the guidelines from Medicare unless there is a documented reason that sedation would be strongly recommended.??The procedure will be completed with fluoroscopic guidance.? update lumbar xray to assess chronic low back pain, lumbar spondylosis, and lumbar ddd increase gabapentin 600mg TID, risks vs benefits reviewed maintain tizanidine 8mg hs prn pain/spasms and tramadol 50mg BID PRN moderate to severe pain proceed with bilateral L4-5 L5-S1 mbb x2 in consideration of RFA for facet mediated low back pain f/u after each injection
== END 2025-05-04 07:54 | disposition home or self-care (01) ==
LOC: PM 07:54
PROVIDERS: PCP Family Medicine; Visit Provider Nurse Practitioner
DX: M47.816 Spondylosis without myelopathy or radiculopathy, lumbar region (principal); M51.360 Other intervertebral disc degeneration, lumbar region with discogenic back pain only; M79.18 Myalgia, other site; Z79.891 Long term (current) use of opiate analgesic
CPT/HCPCS: 72114; G0463

== ENCOUNTER 2025-05-04 12:02 | Outpatient (OUT) | payer MEDICARE, OTHER, SELFPAY ==
--- OUTSIDE RECORDS SUMMARY | 2025-05-04 12:06 | XMS_ITS | Clinical Summary ---
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 Name Role Phone Tulio Madrid MD Primary Care Provider [phone] Allergies Active AllergyReactionsCriticalityNoted UuusSasotutjMvxlvhmsnRecil32/18/2023 Oxycodone-Xbsqlhodjmguu92/18/2023 Medications MedicationSigDispense QuantityRefillsLast FilledStart DateEnd DateStatus atorvastatin (Lipitor) 20 mg tablet atorvastatin 20 mg tablet TAKE 1 TABLET BY MOUTH EVERYDAY AT WSODZDZ0004/25/2020Active colchicine 0.6 mg tablet Take 0.6 mg [...] 2 TABLETS BY MOUTH EVERY DAY AT NDMJPDD6107/11/2022ctive Active Problems ProblemNoted DateDiagnosed DateBenign prostatic hyperplasia with urinary oapdbukhzto46/18/2023History of colonic npkowv9507/31/2022Hydronephrosis with renal and ureteral calculus hceugglldku53/18/2023Liver mass07/31/2022Long term current use of anticoagulant cndllux8907/31/2022Neoplasm of uncertain behavior of liver and biliary bfefcpjk10/18/6792Llkbxvdn31/18/5887Sumhwb18/31/2022ack pain 12/11/2021iabetes /31/8951Hamu32/31/2022History of pulmonary embolism 12/11/2021 Assessment & Plan (07/31/2022 2:19 PM EST): Currently stable History of severe acute respiratory syndrome coronavirus 2 (SARS-CoV-2) disease 12/11/20219626Xqzxekvrgcmgdh17/31/2022 Assessment & Plan (07/31/2022 2:17 PM EST): Lipid abnormalities are currently well controlled with lipitor 20 mg- LDL currently 58.6 on labs 07/26/2022 Liver function 04/2022 were normal Hypertensive wmpcawmd87/31/2022 Assessment & Plan (07/31/2022 2:18 PM EST): Hypertension is well controlled 114/64 Continue lisinopril 5 mg Recent CR elevated 1.59- his cr typically has been 1.2-1.4 - He has been on antibiotics for Lt foot infection- DFU with wound care. Dcgjcup4912/11/2021bstructive sleep apnea mqlijluo31/31/2022 Family History Medical HistoryRelationNameCommentsStrokeFatherRelationNameStatusCommentsFather Social History Tobacco UseTypesPacks/DayYears UsedDateSmoking Tobacco: NeverSmokeless Tobacco: Never Tobacco Cessation:Counseling Given: Not Answered Alcohol UseStandard Drinks/WeekCommentsYes0 (1 standard drink = 0.6 oz pure alcohol)occasionalUT Safety & EnvironmentAnswerDate RecordedFear of Current or Ex-PartnerNot on file09/04/2023Emotionally AbusedNot on file09/04/2023hysically AbusedNot on file09/04/2023Sexually AbusedNot on file09/04/2023hysically or Sexually AbusedNot on file09/04/2023Sex and Gender InformationValueDate Recorded Sex Assigned at BirthNot on fileLegal OuiJtpm8401/09/2022 9:30 PM EDTGender IdentityNot on fileSexual OrientationNot on file Last Filed Vital Signs Vital SignReadingTime TakenCommentsBlood Novwhksn849/6401 1:39 PM EST Jwkgm495507/31/2022 1:39 PM ESTTemperature--Respiratory Rate--Oxygen Zzzyszitfh62% 07/31/2022 1:39 PM ESTInhaled Oxygen Concentration--Brenuo240 kg (308 lb) 07/31/2022 1:39 PM KIQTzmazc470.4 cm (6' 1 )07/31/2022 1:39 PM ESTBody Mass Index40.64007/31/2022 1:39 PM EST Plan of Treatment Health MaintenanceDue DateLast DoneCommentsCT Gphtjgliuvat82/09/1957Colonoscopy 1956Colorectal Cancer Kfoqqufgs83/09/1957Diabetes: Hemoglobin A1C 1956FIT-DNA1956FIT1956FOBT1956Medicare Annual Wellness (AWV)1955 0147Mlzxjqtiuxmqw91/09/1957Diabetes: Retinopathy Angqrpmpl23/09/1967 Depression Fsrooojpc62/09/1969Diabetes: Urine Protein Icfeizkzt79/09/1976Adult Pcyhqck7308/22/1978Zoster Vaccines (1 of 2)2006Fall Risk Rzstlegyt21/09/2022 Pneumococcal Vaccine: 50+ Years (2 of 2 [...] Date Tulio Madrid MD [address] [place] [address] PCP - [facility]07/05/24
--- OUTSIDE RECORDS SUMMARY | 2025-05-04 12:06 | XMS_ITS | Clinical Summary ---
Author Organization [facility] Address [id number] [address] 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 Name Role Phone Unavailable Primary Care Provider Unavailabl e Social History Tobacco UseTypesPacks/DayYears UsedDateSmoking Tobacco: Never AssessedChildcare AnswerDate JsojpausVomlkzgmcCdgzoml01/11/2019EmploymentAnswerDate Recorded BxidossfekYuobkho13/11/2019Purpose - LifeAnswerDate RecordedPurpose and direction in daltWuwxavk66/11/2021Sex and Gender InformationValueDate Recorded Sex Assigned at BirthNot on fileLegal RpdVuvo3302/14/2015 9:00 PM EDTGender IdentityNot on fileSexual OrientationNot on file Plan of Treatment Health MaintenanceDue DateLast DoneCommentsDepression Xsgmbutpy63/09/1969Tobacco Zwutbtbej75/09/1969Adult BMI Xmfhribqx18/09/1975DTaP,Tdap and Td Vaccines (1 - Tdap)1975Zoster (Shingles) Vaccine (1 of 2)2006Fall Risk Screening 2021Influenza Bgsgckd3503/14/2025 Medical Devices Not on file
--- OUTSIDE RECORDS SUMMARY | 2025-05-04 12:06 | XMS_ITS | Clinical Summary ---
Author Organization [facility] Address [address] [place] [address], [address] [place] [address] Care Team Providers Care Supervisor Cd Area Name Role Phone Tulio Madrid MD Primary Care Provider + Encounters DateTypeDepartmentCare PozqNiooqoibanb25/21/2025 1:13 PM EDT - 02/02/2025 11:59 PM EDTHospital Encounter [facility] [address] [place] [address] Aftercare following left knee joint replacement surgery Discharge Disposition: Home or Self Carefrom Last 3 Months Social History Tobacco UseTypesPacks/DayYears UsedDateSmoking Tobacco: Never AssessedSex and Gender InformationValueDate RecordedSex Assigned at BirthNot on fileLegal Sex Male01/31/2025 12:58 PM EDTGender IdentityNot on fileSexual OrientationNot on file Plan of Treatment Health MaintenanceDue DateLast DoneCommentsDepression Dlkizc8808/22/1968Hepatitis C rhzrfs0108/22/1974DTaP/Tdap/Td vaccine (1 - Tdap)08/22/19757594Vrywvj61/09/1997 Anurgksywby52/09/2002Colorectal Cancer Ovybsn2508/22/2001FIT/FOBT: Average risk 2001Fecal-DNA (Cologuard): Average risk2001Sigmoidoscopy/CT hfhyrrqoqdwh47/09/2002Shingles vaccine (1 of 2)2006Pneumococcal 50+ years Vaccine [...] Tulio Madrid MD [address] [place] [address] [facility] - [facility]
--- OUTSIDE RECORDS SUMMARY | 2025-05-04 12:08 | XMS_ITS | CCD ---
Author Organization [facility] Care Team Providers Care Bridge Carpenter Name Role Phone Dominikjamaal Racheal Unavailable Ant [...] DR NATHALY Main Attending Unavailable JOHNSON ., RODIRGO Consulting Unavailable JOHNSON ., RODRIGO Consulting Unavailable [...] ., DR FELISA Juarez Primary Care Unavailable [facility] [place], DR STEWART Attending Unavailable [facility], DR STEWART Admitting Unavailable [facility] [place], DR STEWART Consulting Unavailable [facility], DR RACHEAL [...] Care Physician TULIO RUGGIERO Primary Care Physician Tulio Ruggiero MD Unavailable Tulio Ruggiero MD [...] of OnsetReaction(s) Facility (3 sources)Acetaminophen / oxyCODONEDrug AllergyUnknowHawthorn Children's [facility] JobConvo Other (20 sources)Acetaminophen / oxyCODONE; Translations: [OXYCODONE-ACETAMINOPHEN] Drug Cwweazd51-95-6794Eeryfao, [facility]UnMer[facility] Repository (20 sources)oxyCODONE; Translations: [OXYCODONE]Drug Wwkbdfu34-44-4728 Hyperactive behavior (finding)[facility] Repository (1 source)Acetaminophen / oxyCODONEDrug AllergyThe [facility] Repository (1 source)oxyCODONE; Translations: [OxyCODONE Hydrochloride][facility] Rep[facility] Medications Current Medications MedicationDrug Class(es)DatesSig (Normalized)Sig (Original)allopurinol 300 mg oral tablet (20 sources)Xanthine Oxidase Inhibitorallopurinol (Zyloprim) 300 MG tablet 1 (one) time each day at the same time. Activeatorvastatin 20 mg oral tablet (20 sources)HMG-CoA Reductase InhibitorStart: 03-04-0035chrd 1 tablet by mouth at bedtimeatorvastatin (Lipitor) 20 MG tablet Indications: Dyslipidemia Take 1 tablet (20 mg) by mouth at bedtime 90 tablet 3 09/30/2023 ActiveAtorvastatin Calcium Activebaclofen 10 mg oral tablet (20 sources)gamma-Aminobutyric Acid-ergic AgonistStart: 27-15-8415hkvb 1 tablet by mouth at bedtimebaclofen 10 mg Tab 10 mg = 1 tab(s), Oral, Bedtime, Refills(s) 0, Muscle pain Start Date: 11/17/20 Status: Orderedtake 1 tablet by mouth at bedtimebaclofen (Lioresal) 20 MG tablet Take 1 tablet by mouth at bedtime. 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) , Type 2 diabetes mellitus with hyperglycemia, without long-term current use of insulin (CMS/HCC) TAKE 1 TABLET BY MOUTH THREE TIMES A DAY NEEDED FOR GOUT 60 tablet 3 08/06/2023 ActiveColchicine Activecyclobenzaprine hydrochloride 10 mg oral tablet (2 sources)Muscle RelaxantStart: 21-72-2107zxovtyibzfenbgx 10 mg Tab Refills(s) 0 Start Date: 11/04/23 Status: OrdereddiazePAM 10 mg oral tablet (20 sources)BenzodiazepinediazePAM (Valium) 10 MG tablet Take by mouth every 8 (eight) hours if needed Activediclofenac sodium 50 mg delayed release oral tablet (20 sources)Nonsteroidal Anti-inflammatory DrugStart: 52-78-9090bbgtpjbbhz sodium 50 mg Oral EC Tab Refills(s) 0 Start Date: 11/04/23 Status: Ordered febuxostat 40 mg oral tablet (20 sources)Xanthine Oxidase InhibitorStart: 98-42-0930fawakmpqth (Uloric) 40 MG tablet Indications: Type 2 diabetes mellitus with hyperglycemia, without long- term current use of insulin (HCC) , Morbid obesity (CMS-HCC) , 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) Take 1 tablet (40 mg) by mouth Daily 90 tablet 3 11/03/2024 ActiveStart: 04-25-2020 End: 66-61-4437xggqhreprw (Uloric) 40 MG tablet Indications: Morbid obesity (CMS/HCC) , Polyneuropathy due to type2 diabetes mellitus (CMS/HCC) , Type 2 diabetes mellitus with hyperglycemia, without long-term current use of insulin (CMS/HCC) TAKE 1 TABLET BY MOUTH EVERY DAY 90 tablet 3 08/09/2024 Active Febuxostat Activegabapentin 300 mg oral capsule (20 sources)Anti-epileptic AgentStart: 38-22-7678vkkv 1 capsule by mouth at bedtimegabapentin (Neurontin) 300 MG capsule Indications: 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) TAKE 1 CAPSULE BY MOUTH IN THE MORNING, EVENING AND BEFORE BEDTIME 270 capsule 03/07/2025 ActiveStart: 11-15-2020 End: 30-31-4403lygl 1 capsule by mouth in the morning, [...] oral tablet (20 sources)Angiotensin Converting Enzyme InhibitorStart: 90-85-9246wupmcqltci 5 MG tablet Indications: Morbid obesity (CMS-HCC) , 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) , Type 2 diabetes mellitus with hyperglycemia, without long-term current use of insulin (HCC) TAKE 1 TABLET BY MOUTH EVERY DAY 90 tablet 3 06/07/2024 ActiveStart: 00-53-9077xqrqvepzjm 5 MG tablet Indications: Morbid obesity (CMS/HCC) , 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) , Type 2 diabetes mellitus with hyperglycemia, without long-term current use ofinsulin (CMS/HCC) TAKE 1 TABLET BY MOUTH EVERY DAY 90 tablet 3 08/06/2023 ActiveLisinopril Kcupfy14 hr metFORMIN hydrochloride 500 mg extended release oral tablet (20 sources)BiguanideStart: 79-40-2227ssyKWFCIL XR (Glucophage-XR) 500 MG 24 hr tablet Indications: Morbid obesity (CMS-HCC) , 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) , Type 2 diabetes mellitus with hyperglycemia, without long-term current use of insulin ([facility]) TAKE 1 TABLET BY MOUTH EVERY DAY IN THE MORNING 90 tablet 3 06/07/2024 ActiveStart: 43-69-6345bwxRJZEJP XR (Glucophage- XR) 500 MG 24 hr [...] mg oral tablet (1 source)Nonsteroidal Anti-inflammatory DrugStart: 88-46-2735rifl 1 tablet by mouth twice dailynabumetone 500 mg Tab 500 mg = 1 tab(s), Oral, BID, Refills(s) 0, Arthritis Start Date: 11/17/20 Status: OrderedOzempic (3 sources)Ozempic Activeprobenecid 500 mg oral tablet (20 sources)Start: 13-51-7735hrop 1 tablet by mouth onceprobenecid (Benemid) 500 MG tablet Indications: Arthritis, gouty Take 1 tablet (500 mg) by mouth every 12 (twelve) hours 60 tablet 3 07/15/2024 Active End: 56-58-0548itargfftki (Benemid) 500 MG tablet every 12 (twelve) hours. 07/15/2024 Discontinued (Reorder)take 1 tablet by mouth every twelve hours Probenecid 500 MG 1 tablet Orally Twice a day Active0.25 mg, 0.5 mg dose 1.5 ml semaglutide 1.34 mg/ml pen injector (3 sources)Start: 08-37-3229qtwovj 0.5 mg by subcutaneous injection every week Ozempic 2 mg/1.5 mL (0.25 mg or 0.5 mg dose) subcutaneous solution 0.5 mg, SubCutaneous, qWeek, Refill(s) 0 Start Date: 04/24/21 Status: Ordered Semaglutide, 2 MG/DOSE, (Ozempic, 2 MG/DOSE,) 8 MG/3ML solution pen-injector (20 sources)Start: 62-30-8804xevcwj 2 mg by subcutaneous injection every week Semaglutide, 2 MG/DOSE, (Ozempic, 2 MG/DOSE,) 8 MG/3ML solution pen-injector Indications: Type 2 diabetes mellitus with hyperglycemia, without long-term current use of insulin ([facility]) INJECT 2 MG SUBCUTANEOUSLY WEEKLY 9 mL 3 10/20/2024 ActiveStart: 86-03-4759zmlqwp 2 mg by subcutaneous injection every week Semaglutide, 2 MG/DOSE, (Ozempic, 2 MG/DOSE,) 8 MG/3ML solution pen-injector Indications: Type 2 diabetes mellitus with hyperglycemia, without long-term current use of insulin ([facility]) INJECT 2 MG SUBCUTANEOUSLY WEEKLY 9 mL 3 10/20/2024 ActiveStart: 57-20-3849ewhaom 2 mg by subcutaneous injection every weekSemaglutide, 2 MG/DOSE, (Ozempic, 2 MG/DOSE,) 8 MG/3ML solution pen-injector Indications: Type 2 diabetes mellitus with hyperglycemia, without long-term current use of insulin (CMS/HCC) Inject 2 mg under the skin 1 (one) time per week 9 mL 3 08/26/2023 Activesulfamethoxazole 800 mg / trimethoprim 160 mg oral tablet (3 sources)Dihydrofolate Reductase Inhibitor Antibacterial, Sulfonamide AntimicrobialStart: 10-13-2024 End: 46-54-9671cyhy 1 tablet by mouth once in the morningsulfamethoxazole- trimethoprim (Bactrim DS) 800-160 MG per tablet Indications: Abscess of abdominal wall Take 1 tablet by mouth in the morning and at noon for 10 days 20 tablet 10/13/2024 10/23/2024 ActiveSyringe/Needle, Disp, (B-D 3CC LUER-HERMINIO SYR 23GX1 ) 23G X 1 3 ML misc (20 sources)Start: 77-02-9192Iiyzyez/Needle, Disp, (B-D 3CC LUER-HERMINIO SYR 23GX1 ) 23G X 1 3 ML misc Indications: Male hypogonadism Inject 1 each into the shoulder, thigh, or buttocks every 14 (fourteen) days 50 each 11 10/04/2024 ActiveStart: 98-70-6447Anplzuf/Needle, Disp, (B-D 3CC LUER-HERMINIO SYR 23GX1 ) 23G X 1 3 ML misc Indications: Male hypogonadism Inject 1 each into the shoulder, thigh, or buttocks every 14 (fourteen) days 50 each 11 12/24/2023 Active tadalafil 10 mg oral tablet (1 source)Phosphodiesterase 5 InhibitorStart: 90-45-9703weywtccxc 10 mg Tab See Instructions, PRN for erectile dysfunction, 1-2 tab(s) po 60mins prior to sexual activity. do not exceed 20mg/24hrs, # 20 tab(s), Refills(s) 3, Pharmacy: [facility]/pharmacy #[id number], 188, cm, 06/03/23 10:01:00 EST, Height/Length Dosing, 138, kg, 06/03/23 10:01:00 EST, Weight Dosing Start Date: 06/03/23 Status: Ordered1 ml testosterone cypionate 200 mg/ml injection (20 sources)AndrogenStart: 12-24-2023 End: 71-01-1227noternxjlbso cypionate (Depo-Testosterone) 200 MG/ML injection Indications: Male hypogonadism Inject 0.5 mL (100 mg) into the shoulder, thigh, or buttocks every 14 (fourteen) days 10 mL 2 11/09/2024 ActiveTestosterone Cypionate 200 mg/mL intramuscular solution (3 sources)Start: 67-32-5961Likdssilrzbs Cypionate 200 mg/mL intramuscular solution Refills(s) 0 Start Date: 06/03/23 Status: OrderedtiZANidine 4 mg oral tablet (20 sources)Central alpha-2 Adrenergic Agonisttake 1 tablet by mouth every six hours as neededtiZANidine (Zanaflex) 4 MG tablet Take 4 mg by mouth every 6 (six) hours if needed for muscle spasms ActivetraMADol hydrochloride 50 mg oral tablet (20 sources)Opioid AgonistStart: 35-53-4956axgOLWJS 50 mg Tab Refills(s) 0 Start Date: 06/03/23 Status: OrderedtraMADol HCl ActivetraZODone hydrochloride 50 mg oral tablet (20 sources)Serotonin Reuptake InhibitorStart: 25-90-9464phrf 1 tablet by mouth at bedtimetraZODone (Desyrel) 50 MG tablet Indications: Primary insomnia Take 1 tablet (50 mg) by mouth at bedtime 30 tablet 3 12/27/2024 ActiveStart: 28-62-5086yymm 1 tablet by mouth at bedtimetraZODone (Desyrel) 50 MG tablet Indications: Primary insomnia TAKE 1 TABLET BY MOUTH AT BEDTIME 30tablet 3 06/24/2024 ActiveStart: 11-27-7557gkmw 50 mg by mouth once daily at bedtime trazodone 50 mg, Oral, Once a day (at bedtime), Refills(s) 0 Start Date: 05/27/24 Status: OrderedStart: 38-83-1055diaz 1 tablet by mouth at bedtime traZODone (Desyrel) 50 MG tablet Indications: Primary insomnia Take 1 tablet (50 mg) by mouth at bedtime 30 tablet 3 02/26/2024 ActiveVitamin D3 (3 sources)Start: 08-39-0081Fyicwwt D3 50,000 International_Unit, BID, Refills(s) 0, Prophylaxis Start Date: 04/25/20 Status: Ordered Completed/Discontinued Medications MedicationDrug Class(es)DatesSig (Normalized)Sig (Original)LORazepam 0.5 mg oral tablet (1 source)BenzodiazepineStart: 48-90-0357Zwbibr 0.5 mg Tab 1 mg = 2 [...] acetonide 40 mg/ml injectable suspension (4 sources)CorticosteroidStart: 88-84-9388Lagfeqm-40 May, 40 mgStart: 12-61-9856Rtjntgd -40 mg Jul, 40 mg Problems Active Problems Problem ClassificationProblemDateDocumented DateEpisodic/ChronicAcquired foot deformities (5 sources)Hallux rigidus, left foot; Translations: [Hallux valgus (acquired), left foot]Onset: 33-20-0514YxxxdmpQnmyvr (1 source)Cough variant asthma; Translations: [COUGH VARIANT ASTHMA]Onset: 40-72-2137XphgazmLoqqhlxv of urinary tract (10 sources)Calculus of kidney; Translations: [Kidney stone]Onset: 05-27-2022 EpisodicCataract (20 sources)Bilateral age-related nuclear cataracts; Translations: [Age-related nuclear cataract, bilateral]Onset: 742540-71-9668HpbgetjUbairnr kidney disease (2 sources)Chronic kidney disease stage 3A ; Translations: [Chronic kidney disease, stage 3a (CMS-HCC)]37-89-8622TrijhfcFhequjm ulcer of skin (5 sources)Non-pressure chronic ulcer of other part of left foot limited to breakdown of skin; Translations: [Non-pressure chronic ulcer of other part of left foot with unspecified severity]Onset: 54-68-8886QqfavxgGeinnzjlqilhf of surgical procedures or medical care (5 sources)Other complications of procedures, not elsewhere classified, initial encounter; Translations: [OTH COMPLICATIONS PROC NEC INITIAL]Onset: 11-05-2022 EpisodicConditions associated with dizziness or vertigo (4 sources)Dizziness and giddiness; Translations: [DIZZINESS AND GIDDINESS] Onset: 15-84-6412EoyhxbmrOlkynxjpra heart failure; nonhypertensive (4 sources)Heart failure, unspecified; Translations: [HEART FAILURE UNSPECIFIED] Onset: 88-53-0782BbbeiaaKjxvdlyc mellitus with complications (20 sources)Type 2 diabetes mellitus; Translations: [Type 2 diabetes mellitus with other specified complication]Onset: 33-86-3223AedcyptRfohpcxa mellitus without complication (5 sources)Type 2 diabetes mellitus without complications; Translations: [TYPE 2 DM WITHOUT COMPLICATIONS]Onset: 02-10-7964UazvxmsArnjxmmis of lipid metabolism (20 sources)Mixed hyperlipidemia; Translations: [Pure hypercholesterolemia, unspecified]Onset: 65-29-2289YncjzsvUwyorpagu of teeth and jaw (1 source)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; Translations: [ADHESIONS AND ANKYLOSIS LEFT TMJ]Onset: 44-09-4442MxlpeurbWfomddtzt hypertension (3 sources)Essential (primary) hypertension; Translations: [Essential (primary) hypertension]Onset: 80-06-3940XdwzmvsGmfoylczerzfp symptoms and ill-defined conditions (3 sources)Oddqyqmb75-30-0397WffcfhhjThtr and other crystal arthropathies (20 sources)Gout, unspecified; Translations: [Gouty arthropathy]Onset: 51-77-6801LyrevjkTzkttdsbf (4 sources)Steatohepatitis; Translations: [Nonalcoholic steatohepatitis ([facility]ES)] Onset: 04-12-2021 Resolved: 89-27-9077ZxbbwnrMzrqvzhcgke of prostate (8 sources)Benign prostatic hypertrophy with outflow obstruction; Translations: [Benign prostatic hyperplasia with lower urinary tract symptoms]Onset: 67-27-2156WpkupafDsygskncxidyh mental health disorders (20 sources)Primary insomnia; Translations: [Primary insomnia]Onset: 01-12-2024 54-94-8164IhegaprOoxidjkzx of unspecified nature or uncertain behavior (3 sources)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 87-17-4557KwvkfealDtjqcvmekxvtma (20 sources)Arthritis of right knee; Translations: [Unilateral primary osteoarthritis, right knee]Onset: 08-07-2021 Resolved: 57-74-3773QsuslgjPsyax aftercare (1 source)Patient encounter status; Translations: [Aftercare following joint replacement surgery]41-25-7933WilcdgmSewkn aftercare (1 source)Aftercare following joint replacement surgery; Translations: [Aftercare following joint replacementsurgery]Onset: 42-03-9118FuahrzoAxpyr aftercare (1 source)termite helper (current) use of oral hypoglycemic drugs; Translations: [TELEPHONE ORDER DISPATCHER USE ORAL HYPOGLYCEMIC DX]Onset: 30-82-2968UuakenuiNghhg aftercare (1 source)Other ferry terminal agent (current) drug therapy; Translations: [OTH ASSISTED CURRENT DRUG THERAPY]Onset: 02-06-4236DygblizhWinoi aftercare (3 sources)Long-term current use of pitxkcylsutqp40-70-2022CohsfbwyOqsxb and unspecified benign neoplasm (3 sources)Benign neoplasm of descending owwic00-35-2216FbiqyspwVwiyi and unspecified benign neoplasm (3 sources)Benign neoplasm of sigmoid tuodh28-75-1787HwpejcpjQhjny and unspecified benign neoplasm (3 sources)History of polyp of qepcr61-69-0321OvvzrhfmYplhc connective tissue disease (1 source)Presence of left artificial knee joint; Translations: [Presence of left artificial knee joint]Onset: 28-41-4655PjiojeiYmyvg connective tissue disease (4 sources)Pain in left foot; Translations: [PAIN IN LEFT FOOT]Onset: 12-03-2022 EpisodicOther connective tissue disease (1 source)Myalgia, other site; Translations: [MYALGIA OTHER SITE]Onset: 72-75-0643HslhhmbvFiqjh connective tissue disease (4 sources)Arthrodesis status; Translations: [ARTHRODESIS STATUS]Onset: 99-09-3490OmtmaonnFxiik diseases of kidney and ureters (3 sources)Hydronephrosis co-occurrent and due to calculus of kidney and ureter 26-66-8018KywaactiCjwtf endocrine disorders (3 sources)Testicular hypofunction; Translations: [Testicular hypofunction] Onset: 21-18-1130LclcadtAssrz endocrine disorders (20 sources)Male hypogonadism; Translations: [Testicular hypofunction]Onset: 316166-48-8667WvdranrIyyno liver diseases (3 sources)Lesion of liver; Translations: [Liver disease, unspecified]Chronic Other liver diseases (1 source)Fatty (change of) liver, not elsewhere classified; Translations: [FATTY CHANGE LIVER NEC]Onset: 65-79-1385RntnbrqWxbvw liver diseases (15 sources)Non-alcoholic fatty liver; Translations: [Fatty (change of) liver, not elsewhere classified]Onset: 314808-75-2095JlmwnxwTtsqk liver diseases (13 sources)Non-alcoholic fatty liver disease without non-alcoholic steatohepatitis; Translations: [Fatty (change of) liver, not elsewhere classified]Onset: 696775-85-4329UmyqvnxGouzr liver diseases (3 sources)Liver rstc88-92-6240HduiigpiNomke lower respiratory disease (1 source)Personal history of pneumonia (recurrent); Translations: [PERSONAL HX OF PNEUMONIA RECURRENT]Onset: 00-12-7406DkzbbgxuYryfj male genital disorders (6 sources)Male erectile dysfunction, unspecified; Translations: [Erectile dysfunction]Onset: 39-58-7433JeociagNbezq nervous system disorders (1 source)Other chronic pain; Translations: [OTHER CHRONIC PAIN]Onset: 00-52-1716HdukjcmDxgxd non-traumatic joint disorders (2 sources)Pain in right kneeOnset: 08-07-2021 Resolved: 30-30-7046RyhxonnbXrreu nutritional; endocrine; and metabolic disorders (1 source)Morbid (severe) obesity due to excess calories; Translations: [MORBID SEVERE OBES D/T EXCESS RAFAEL]Onset: 81-60-8076ZqdmkgmWumfo nutritional; endocrine; and metabolic disorders (1 source)Body mass index (BMI) 39.0-39.9, adult; Translations: [BODY MASS INDEX BMI 39.0-39.9 ADULT]Onset: 77-28-0550TehjraoWjtjv nutritional; endocrine; and metabolic disorders (3 sources)Body mass index 40+ - severely pfjen44-14-3689ZkpsmdcVbfog nutritional; endocrine; and metabolic disorders (8 sources)Morbid obesity; Translations: [Morbid (severe) obesity due to excess calories]Onset: 645688-59-0104CbaeawtYmwzf nutritional; endocrine; and metabolic disorders (20 sources)Severe obesity; Translations: [Class 2 severe obesity due to excess calories with serious comorbidity and body mass index (BMI) of 37.0 to 37.9 in adult ([facility])]Onset: 557926-97-3175OdhkxzkSbiap skin disorders (1 source)Corns and callosities; Translations: [CORNS AND CALLOSITIES]Onset: 19-41-0730QryglaviQroyb upper respiratory disease (20 sources)Allergic rhinitis due to pollen; Translations: [Allergic rhinitis due to pollen]Onset: 338796-35-1452QxjuxbgXhfxc upper respiratory infections (1 source)Acute upper respiratory infection, unspecified; Translations: [ACUTE UP RESPIRATORY INFECTION UNS]Onset: 42-11-5922FixxyneqZnfmjnwyq heart disease (6 sources)Personal history of pulmonary embolism; Translations: [H/O: pulmonary embolus]Onset: 80-38-4980YbfouatnAdpsgznm codes; unclassified (1 source)Obstructive sleep apnea (adult) (pediatric); Translations: [OBSTRUCTIVE SLEEP APNEA]Onset: 20-00-2183UsdmtcnMyxgably codes; unclassified (20 sources)Obstructive sleep apnea syndrome; Translations: [Obstructive sleep apnea (adult) (pediatric)]Onset: 810380-61-7487ZreeqghMobxyjhr codes; unclassified (1 source)Family history of cancer; Translations: [Family history of malignant neoplasm of prostate]Onset: 36-47-1262DwqbwclmFsfhpdxd codes; unclassified (3 sources)Family history of prostate -74-8054MadysrzyHgetwqdukla; intervertebral disc disorders; other back problems (20 sources)Spondylosis without myelopathy or radiculopathy, lumbar region; Translations: [Unspecified thoracic, thoracolumbar and lumbosacral intervertebral disc disorder]Onset: 01-74-9713PhaanrgOatohoawajw; intervertebral disc disorders; other back problems (7 sources)Muscle spasm of back; Translations: [Backache]Onset: 07-31-2022 EpisodicUnclassified (4 sources)LOW BACK PAIN, UNSPECIFIED; Translations: [LOW BACK PAIN, UNSPECIFIED]Onset: 35-00-3355Bprddlwsvjnm (1 source)PERSONAL HISTORY OF COVID-19; Translations: [PERSONAL HISTORY OF COVID-19]Onset: 41-87-5359Snaluasbippu (1 source)COUGH, UNSPECIFIED; Translations: [COUGH, UNSPECIFIED]Onset: 99-16-7558Zcroeamaddan (2 sources)Measurement yhsxhuq67-91-6135 Past or Other Problems Problem ClassificationProblemDateDocumented DateEpisodic/ChronicOther aftercare (4 sources)Encounter for surgical aftercare following surgery on the circulatory system; Translations: [ENC SURG AFTRCARE FLW SURG CIRC SYS]Onset: 02-18-2022 EpisodicOther aftercare (20 sources)Long-term current use of drug therapy; Translations: [Other intermediate (current) drug therapy]Onset: 350858-75-4697YiommgmoDdaco and unspecified benign neoplasm (1 source)Hemangioma of intra-abdominal structures; Translations: [Liver hemangioma D18.03]Onset: 04-12-2021 Resolved: 07-23-7500VkzapeesAslhj connective tissue disease (1 source)Myalgia, unspecified site; Translations: [MYALGIA UNSPECIFIED SITE] Onset: 68-66-9094UlvqzgshIshen connective tissue disease (4 sources)Other muscle spasm; Translations: [OTHER MUSCLE SPASM]Onset: 65-68-5579BwfbvyozDzwxg male genital disorders (1 source)Disorder of prostate, unspecified; Translations: [DISORDER OF PROSTATE UNSPECIFIED]Onset: 29-15-1567NkkascegGmcok non-traumatic joint disorders (3 sources)Pain in left knee; Translations: [PAIN IN LEFT KNEE]Onset: 08-07-2021 Resolved: 71-35-8336BvkjuixgNgjwz screening for suspected conditions (not mental disorders or infectious disease) (20 sources)Encounter for screening for malignant neoplasm of prostate; Translations: [Screening for malignant neoplasm done]Onset: 69-39-8337Jfcvefdz Phlebitis; thrombophlebitis and thromboembolism (9 sources)Phlebitis and thrombophlebitis of superficial vessels of right lower extremity; Translations: [Phlebitis and thrombophlebitis of superficial vessels of left lower extremity]Onset: 14-59-2888YikcascqXdbj and subcutaneous tissue infections (15 sources)Cellulitis of left toe; Translations: [Abscess of abdominal wall] Onset: 12-11-2022 Resolved: 547645-61-0577UnulrknmLleothnrxcen (1 source)LOW BACK PAIN, UNSPECIFIED; Translations: [LOW BACK PAIN, UNSPECIFIED] Onset: 78-39-4963Matrreoisolp (3 sources)Patient encounter puwkdw13-47-2036Ryvilpet veins of lower extremity (5 sources)Varicose veins of bilateral lower extremities with pain; Translations: [VARICOSE VNS MARIE LOW EXTREMW/PAIN]Onset: 01-64-1690Egvxrqyz Results Test NameValueInterpretationReference RangeFacilityXR KNEE LEFT (3 VIEWS)on 84-12-0574IHVO: XR KNEE LEFT (3 VIEWS) HISTORY: Aftercare [...] LEFT (3 VIEWS)Ordered By: Radiologist Radiology on 50-85-7812GL[facility]WLaf[facility] Work Phone: XR KNEE LEFT (3 VIEWS)on 55-48-9817XJ KNEE LEFT (3 VIEWS)EXAM: XR KNEE LEFT (3 VIEWS) HISTORY: Aftercare following left knee joint replacement surgery COMPARISON: 08/23/2024 left knee IMPRESSION: FINDINGS/IMPRESSION: 1. 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 2. Severe osteoarthritic change right knee. Interpreted by: Russ Rodriguez Jr., MD Signed by: Russ Rodriguez Jr., MD 01/31/25 Final resultNormWexner Medical CenterRadiology Study observation (narrative) [facility] HealthcareXR Knee - left 3 Viewson [id number]/IMPRESSION: 1. 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 2. Severe osteoarthritic change right knee. [facility] RIS CONSOLIDATEDEXAM: XR KNEE LEFT (3 VIEWS) HISTORY: Aftercare following left knee joint replacement surgery COMPARISON: 08/23/2024 left knee [facility] Russ Aguiar Jr., MD - 01/31/2025 EXAM: XR KNEE LEFT (3 VIEWS) HISTORY: Aftercare following left knee joint replacement surgery COMPARISON: 08/23/2024 left knee IMPRESSION: FINDINGS/IMPRESSION: 1. 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 2. Severe osteoarthritic change right knee. [facility]anyRadiology Study observation (narrative)[facility]anyXR Knee - left 3 ViewsOrdered By: Russ Rodriguez on 86-24-8721Bhl [facility] Work Phone: tbh MICROALB CREAT RATIO RANDOMon 24-99-7276OJCQKZMXYL URINE JYPWTV781.87 mg/dL20.00 - 300.00 mg/dLNOTN HealthcareMICROALBUM CREATININE RATIO UR19.6 mg/g0.0 - 29.9 mg/gNOMS HealthcareComment on above:NO MICROALBUMINURIA 0-29 MG/G CLINICAL MICROALBUMINURIA 30-300 MG/G MACROALBUMINURIA >300 MG/G MICROALBUMIN URINE RANDOM5 mg/dLNINF - 30.0 mg/dLNOTN HealthcareCLINISYNCNVETERANS AFFAIRS [facility] [place] [facility] [place] HealthcareMHPT PSA, DIAGNOSTICon 51-23-1514XRWETFOA SPECIFIC ANTIGEN DX1.32 ng/mLNINF - 4.00 ng/mLNOMS HealthcareCLINISYNCNOMS HealthcareXR Knee - left 1 or 2 Viewson 93-84-0508Xmv[place] [address] XRay Report Signed Patient: CARLOS CARABALLO MR#: [id number] : 1955 Acct:[id number] Age/Sex: 69 / M ADM Date: 10/04/24 Loc: EC Attending Dr: Daniele Valencia M.D. Ordering Physician: Daniele Valencia M.D. Date of Service: 10/04/24 Procedure(s): XR knee LT 2V Accession Number(s): [id number] cc: Daniele Valencia M.D.; Tulio Ruggiero M.D. The [address] [address] Patient Name: CARLOS CARABALLO MRN: [id number] date: 1955 Sex: M Assigned Patient Location: Current Patient Location: Accession/Order Number: [id number] Exam Date: 10/04/2024 14:50 Report Date: 10/04/2024 [...] Sheppard Jr. DRustyORusty10/04/2024 2:51 PM Dictation Location: [place] [address] Electronically authenticated by: [id number] Y Date: 10/04/2024 14:51 Dictated By: Rehan Sheppard M.D. Signed By: 10/04/24 1453 DD/ 1451 TD/TT: Color Tester:SIDDHARTHAadiolelmer Radiologist, - 10/04/2024 The [place] [id number] XRay Report Signed Patient: CARLOS CARABALLO MR#: [id number] : 1955 Acct:[id number] Age/Sex: 69 / M ADM Date: 10/04/24 Loc: EC Attending Dr: Daniele Valencia M.D. Ordering Physician: Daniele Valencia M.D. Date of Service: 10/04/24 Procedure(s): XR knee LT 2V Accession Number(s): [id number] cc: Daniele Valencia M.D.; Tulio Ruggiero M.D. The [place] [id number] Patient Name: CARLOS CARABALLO MRN: [id number] date: 1955 Sex: M Assigned Patient Location: Current Patient Location: Accession/Order Number: [id number] Exam Date: 10/04/2024 14:50 Report Date: 10/04/2024 [...] Sheppard Jr., D.O.10/04/2024 2:51 PM Dictation Location: [place] [address] Electronically authenticated by: [id number] Y Date: 10/04/2024 14:51 Dictated By: Rehan Sheppard M.D. Signed By: 10/04/24 1453 DD/ 1451 TD/TT: Color Tester: NOMS HealthcareRadiology Study observation (narrative)NOM HealthcareXR Knee - left 1 or 2 ViewsOrdered By: Radiologist Radiology on 89-72-6899SE[facility]X [facility] Work Phone: XR Knee - left 1 or 2 Viewson 35-04-8061[place] [address] XRay Report Signed Patient: CARLOS CARABALLO MR#: [id number] : 1955 Acct:[id number] Age/Sex: 69 / M ADM Date: 09/06/24 Loc: EC Attending Dr: Daniele Valencia M.D. Ordering Physician: Daniele Valencia M.D. Date of Service: 09/06/24 Procedure(s): XR knee LT 2V Accession Number(s): [id number] cc: Daniele Valencia M.D.; Tulio Ruggiero M.D. [place] [id number] Patient Name: CARLOS CARABALLO MRN: [id number] date: 1955 Sex: M Assigned Patient Location: Current Patient Location: Accession/Order Number: [id number] Exam Date: 09/06/2024 14:51 Report Date: 09/06/2024 14:54 At the request of: DANIELE VAELNCIA MD Procedure: XR knee LT 2V LEFT [...] Brunilda Rogers M.D.09/06/2024 2:54 PM Dictation Location: [place] [address] Electronically authenticated by: [id number] Y Date: 09/06/2024 14:54 Dictated By: Brunilda Rogers M.D. Signed By: 09/06/24 1456 DD/ 1454 TD/TT: Color Tester:MARTHAHRadiology, Radiologist, - 09/06/2024 [place] [address] XRay Report Signed Patient: CARLOS CARABALLO MR#: [id number] : 1955 Acct:[id number] Age/Sex: 69 / M ADM Date: 09/06/24 Loc: Attending Dr: Daniele Valencia M.D. Ordering Physician: Daniele Valencia M.D. Date of Service: 09/06/24 Procedure(s): XR knee LT 2V Accession Number(s): [id number] cc: Daniele Valencia M.D.; Tulio Ruggiero M.D. The [place] [id number] Patient Name: CARLOS CARABALLO MRN: [id number] date: 1955 Sex: M Assigned Patient Location: Current Patient Location: Accession/Order Number: [id number] Exam Date: 09/06/2024 14:51 Report Date: 09/06/2024 [...] Brunilda Rogers M.D.09/06/2024 2:54 PM Dictation Location: [place] [address] Electronically authenticated by: [id number] Y Date: 09/06/2024 14:54 Dictated By: Brunilda Rogers M.D. Signed By: 09/06/24 1456 DD/ 1454 TD/TT: Color Tester: NOMS HealthcareRadiology Study observation (narrative)NOMS HealthcareXR Knee - left 1 or 2 ViewsOrdered By: Radiologist Radiology on 17-40-3392FUWW Healthcare Work Phone: aLL BASIC METABOLIC PANELon 74-49-2034Wplzk gap [Moles/Vol]14.3 mmol/LNOMS HealthcareCalcium [Mass/Vol]7.7 mg/dLLow8.5 - 10.1 mg/dLNOMS HealthcareChloride [Moles/Vol]108 mmol/LHigh98 - 107 mmol/LNOMS HealthcareCO2 [Moles/Vol]25.4 mmol/L21.0 - 32.0 mmol/LNOMS HealthcareCreatinine [Mass/Vol]1.62 mg/dLHigh0.70 - 1.30 mg/dLNOMS HealthcareGFR/1.73 sq M.predicted CKD-EPI (S/P/Bld) [Vol rate/Area]52Low>=60 mL/min/1.73m 2NOMS HealthcareGlucose [Mass/Vol]112 mg/zRAzxb75 - 106 mg/dLNOTN HealthcareInterpretation and review of laboratory resultsAbnormalNOMS HealthcarePotassium [Moles/Vol]4.7 mmol/L3.5 - 5.1 mmol/LNOMS HealthcareSodium [Moles/Vol]143 mmol/L136 - 145 mmol/LNOMS HealthcareTBH EGFR-NON AF UXOLHQGA46Bry>=60 mL/min/1.73m 2NOMS HealthcareUrea nitrogen [Mass/Vol]28 mg/dLHigh7.0 - 18.0 mg/dLNOTN HealthcareUrea nitrogen/Creatinine [Mass ratio]17.3 mg/mgNOTN HealthcareCLINISYNCNVETERANS AFFAIRS [facility] [place] [facility] [place] HealthcareALL CBC WITH AUTO DIFFon 66-76-2222WVMCGEGTK ABSOLUTE IZYK3YZCO HealthcareBasophils/100 WBC (Bld)0.6 %0.2 - 2.0 %NOMS HealthcareEosinophils/100 WBC (Bld)4.9 %0.9 - 7.0 %NOMS HealthcareErythrocyte distribution width (RBC) [Ratio]13.5 %11.0 - 15.0 %NOMS HealthcareHematocrit (Bld) [Volume fraction]43.4 %42.0 - 54.0 %NOMMadison Medical CenterHemoglobin (Bld) [Mass/Vol]14.7 g/dL14.0 - 18.0 g/dLNOTN HealthcareIMMATURE GRANULOCYTES ABS AUTO0.03NOTN HealthcareImmature granulocytes/100 WBC (Bld)0.4 %0.0 - 0.5 %NOM HealthcareInterpretation and review of laboratory resultsAbnormalNOTN HealthcareLYMPHOCYTES ABSOLUTE AUTO2.2 NOMMadison Medical CenterLymphocytes/100 WBC (Bld)30.6 %20.5 - 60.0 %[facility]- FultonH (RBC) [Entitic mass]32.8 pg25.9 - 34.0 pgNOFreeman Heart InstituteHC (RBC) [Mass/Vol] 33.9 g/dL29.9 - 35.2 g/dLLafayette Regional Health CenterMCV (RBC) [Entitic vol]96.9 hVGtsn56.0 - 94.0 fLNOFreeman Neosho HospitalMONOCYTES ABSOLUTE AUTO0.6NOMS HealthcareMonocytes/100 WBC (Bld)8.3 %1.7 - 12.0 %NOMS HealthcareNEUTROPHILS ABSOLUTE AUTO3.9NOMS Healthcare Neutrophils/100 WBC (Bld)55.2 %43.0 - 75.0 %NOMS HealthcarePlatelet mean volume (Bld) [Entitic vol]8.8 fLLow9.5 - 13.5 fLNOMS HealthcareTBH EO #0.4NOMS HealthcareTBH XPM868XINS HealthcareTBH RBC4.48LowNOMS HealthcareTBH WBC7.1NOMS HealthcareCLINISYNCNOMS HealthcareXR Knee - left 4 Viewson 50-94-2062[place]le[place] [address] XRay Report Signed Patient: CARLOS CARABALLO MR#: [id number] : 1955 Acct:[id number] Age/Sex: 69 / M ADM Date: 08/23/24 Loc: SURGOUT Attending Dr: Daniele Valencia M.D. Ordering Physician: Daniele Valencia M.D. Date of Service: 08/23/24 Procedure(s): XR knee LT 4V Accession Number(s): [id number] cc: Daniele Valencia M.D.; Tulio Ruggiero M.D. [place] [address] Patient Name: CARLOS CARABALLO MRN: [id number] date: 1955 Sex: M Assigned Patient Location: [facility] Current Patient Location: [facility] Accession/Order Number: [id number] Exam Date: 08/23/2024 12:30 Report Date: 08/23/2024 [...] Signed By: 08/23/24 1308 DD/ 04 TD/TT: Color Tester:SIDDHARTHAadiologLizeth alvarez, - 08/23/[address] [address] XRay Report Signed Patient: CARLOS CARABALLO MR#: [id number] : 1955 Acct:[id number] Age/Sex: 69 / M ADM Date: 08/23/24 Loc: SURGOUT Attending Dr: Daniele Valencia M.D. Ordering Physician: Daniele Valencia M.D. Date of Service: 08/23/24 Procedure(s): XR knee LT 4V Accession Number(s): [id number] cc: Daniele Valencia M.D.; Tulio Ruggiero M.D. The [address] [address] Patient Name: CARLOS CARABALLO MRN: [id number] date: 1955 Sex: M Assigned Patient Location: [facility] Current Patient Location: [facility] Accession/Order Number: [id number] Exam Date: 08/23/2024 12:30 Report Date: 08/23/2024 [...] M.D. Signed By: 08/23/248 DD/ 04 TD/TT: Color Tester: ROMEL HealthcareRadiology Study observation (narrative)NOMS HealthcareXR Knee - left 4 ViewsOrdered By: Radiologist Radiology on 21-01-7956LYBL Healthcare Work Phone: aLL TYPE AND SCREENon 64-81-3998RPR and Rh group Nom (Bld)Blood group B Rh(D) positiveDuke Regional HospitalALL TYPE AND SCREENon 59-29-0996YMC and Rh group Nom (Bld)Blood group B Rh(D) positiveDuke Regional HospitalXR Knee Standing AP Bilateralon 47-24-2027JT Knee Standing AP BilateralEXAM: XR Knee Standing [...] Signed, Electronically Signed in Other Vendor System)Normal [facility] HospitalMRI Knee Surg.Navigate or Plan ONLY Lefton 00-43-9756HIN Knee Surg.Navigate or Plan ONLY LeftHISTORY: Arthritis [...] Signed, Electronically Signed in Other Vendor System)Normal [facility] HospitalXR Knee 1 or 2 Views Lefton 86-00-7017GJ Knee 1 or 2 Views LeftEXAM: Left [...] Signed, Electronically Signed in Other Vendor System)Normal [facility] HospitalALL CBC WITH AUTO DIFFon 38-07-5420VWDTCXCOU ABSOLUTE AUTO0.1NOMS HealthcareBasophils/100 WBC (Bld)0.9 %0.2 - 2.0 %NOMS HealthcareEosinophils/100 WBC (Bld)4.9 %0.9 - 7.0 %NOMS HealthcareErythrocyte distribution width (RBC) [Ratio]13.7 %11.0 - 15.0 %NOMS HealthcareHematocrit (Bld) [Volume fraction]44.7 %42.0 - 54.0 %NOMS HealthcareHemoglobin (Bld) [Mass/Vol]14.9 g/dL14.0 - 18.0 g/dLNOTN HealthcareIMMATURE GRANULOCYTES ABS AUTO 0.02NOMS HealthcareImmature granulocytes/100 WBC (Bld)0.3 %0.0 - 0.5 %NOMS HealthcareInterpretation and review of laboratory resultsAbnormalNOTN Healthcare LYMPHOCYTES ABSOLUTE AUTO1.5NOMS HealthcareLymphocytes/100 WBC (Bld)23 %20.5 - 60.0 %NOMS [facility] HospitalMCH (RBC) [Entitic mass]32.3 pg25.9 - 34.0 pgNOFreeman Heart InstituteHC (RBC) [Mass/Vol]33.3 g/dL29.9 - 35.2 g/dLNOFreeman Heart InstituteV (RBC) [Entitic vol]97 iFZmlf39.0 - 94.0 fLNOMS HealthcareMONOCYTES ABSOLUTE AUTO0.5 NOMS HealthcareMonocytes/100 WBC (Bld)7.9 %1.7 - 12.0 %NOMS Healthcare NEUTROPHILS ABSOLUTE AUTO4.1NOMS HealthcareNeutrophils/100 WBC (Bld)63 %43.0 - 75.0 %NOMS HealthcarePlatelet mean volume (Bld) [Entitic vol]8.8 fLLow9.5 - 13.5 fLNOMS HealthcareTBH EO #0.3NOMS HealthcareTBH UDA326NFVN HealthcareTBH RBC4.61 LowNOMS HealthcareTBH WBC6.6NOMS HealthcareCLINISYNCNOMS HealthcareTBH UA (CLEAN/CATCH) PHYSICAL DESIGN ENGINEER/MICRO IF IND.on 92-76-2118IGPPUDORZ URINENegativeNEGATIVENOMS HealthcareBLOOD URINENegativeNEGATIVENOMS HealthcareClarity (U)CLEARCLEARNOMS HealthcareColor (U)LT. YELLOWYELLOWNOMS HealthcareGLUCOSE URINE UANegative NEGATIVE mg/dLNOTN HealthcareKetones Ql (U)NegativeNEGATIVE mg/dLNOTN Healthcare Leukocyte esterase Test strip Ql (U)NegativeNEGATIVENOMS HealthcareNITRITE URINE NegativeNEGATIVENOMS HealthcarepH (U)6.0 [pH]5.0 - 9.0NOMS HealthcarePROTEIN URINENegativeNEG/TRACE mg/dLNOTN HealthcareSPECIFIC GRAVITY URINE1.0251.005 - 1.025NOMS HealthcareURINE MICROSCOPIC INDICATEDNONOMS HealthcareUROBILINOGEN URINE0.2 EU/dL0.2 - 1.0 EU/dLNOMS HealthcareCLINISYNCNOMS HealthcareReminderson 44-71-8830SxcgjebzlBzjowreos From: Cyndi Montano To: EU - Administrative; Sent: 06/04/2024 12:06:06 EST Show up: 06/04/2024 12:05:00 EST Subject: Ambulatory Reminder Due Date/Time: 05/28/2025 12:05:00 EST Reminder/Recall Patient needs scheduled for a 1 yr f/u, PCP to check PSA. Due back in 06/07 M to call and scheduleNationwide Children's HospitalUrology Office/Clinic Noteon 79-03-4831Dcpueld Office/Clinic NoteUrology Office/Clinic Note Chief Complaint 5mo [...] E&M of Est. Patient Moderate 30-39 Min 83037 Influenza immunization status assessed 1030F Medication list [...] E&M of Est. Patient Moderate 30-39 Min 53711 3. Hypogonadism male (E29.1: Testicular hypofunction) Managed by PCP. On T injections. Ordered: Complex E&M Add on G2211 E&M of Est. Patient Moderate 30-39 Min 96536 4. ED (erectile dysfunction) (N52.9: Male erectile dysfunction, unspecified) Failed Tadalafil. A lot of neuropathy. Not interested in additional tx. Ordered: Complex E&M Add on G2211 E&M of Est. Patient Moderate 30-39 Min 02607 Follow-up With When Contact Information ABIODUN HERNANDEZ PA-C, URL Within 1 year Additional Instructions: Patient Education Kidney Stones, Uigj-oh-Eyyq Problem List/Past Medical History Ongoing Abnormal abdominal [...] BPH with urinary obstructio (more content not included)...[facility] Children's HospitalComment on above:Result Comment: Electronically Signed By: ABIODUN HERNANDEZ PA-C\.br\Date and Time Signed: 05/27/2409:57 ESTXR LSPINE W_OBLS AND FLEX_EXTon 75-42-6853VY LSPINE W_OBLS AND FLEX_EXTEXAMINATION: XR LSPINE W_OBLS [...] Electronically authenticated by: RACHEAL STEELE Date: 2022-12-05 09:46[facility] AUTO DIFFon 60-42-9379ZKNE #0.1 103/ulNormal0.0-0.1Wexner Medical CenterComment on above:Performed By: #### POCGLUC #### [facility] [address] [place] [address] Dr. Juliet Dobbinssophils/100 WBC (Bld)0.7 %Normal0.2-2.0The [facility] Comment on above:Performed By: #### POCGLUC #### [facility] [address] [place] [address] Dr. Juliet Padgett #0.4 103/ulNormal0.0-0.7The [facility] HospitalComment on above: Performed By: #### POCGLUC #### [facility] [address] [place] [address] Dr. Juliet Huddlestonosinophils/100 WBC (Bld)5.3 %Normal0.9-7.0The [facility] Comment on above:Performed By: #### POCGLUC #### [facility] [address] [place] [address] Dr. Juliet Huddlestonrythrocyte distribution width (RBC) [Ratio]14.0 %Ydolzh29.0-15.0 The [facility] HospitalComment on above:Performed By: #### POCGLUC #### [facility] [address] [place] [address] Dr. Juliet WilkesHematocrit (Bld) [Volume fraction]43.6 %Orwmid84.0-54.0The [facility] HospitalComment on above:Performed By: #### POCGLUC #### [facility] [address] [place] [address] Dr. Juliet WilkesHemoglobin (Bld) [Mass/Vol]14.9 g/wBZbxqre95.0-18.0The [facility] HospitalComment on above:Performed By: #### POCGLUC #### [facility] [address] [place] [address] Dr. Juliet Cervantes #0.03 10e3/ulNormal0.00-0.03The [facility] HospitalComment on above:Performed By: #### POCGLUC #### [facility] [address] [place] [address] Dr. Juliet Cervantes %0.4 %Normal0.0-0.5The [facility] HospitalComment on above: Performed By: #### POCGLUC #### [facility] [address] [place] [address] Dr. Juliet Arambula #2.0 103/ulNormal1.2-3.8The [facility] HospitalComment on above:Performed By: #### POCGLUC #### [facility] [address] [place] [address] Dr. Juliet Westhocytes/100 WBC (Bld)29.3 %Awcebk77.5-60.0The [facility] HospitalComment on above:Performed By: #### POCGLUC #### [facility] [address] [place] [address] Dr. Juliet Melendez DIFF REQNONormalThe [facility] HospitalComment on above: Performed By: #### POCGLUC #### [facility] [address] [place] [address] Dr. Juliet Valderrama (RBC) [Entitic mass]33.4 hbErswdw74.9-34.0The [facility] HospitalComment on above:Performed By: #### POCGLUC #### [facility] [address] [place] [address] Dr. Juliet Valderrama (RBC) [Mass/Vol]34.2 g/tPVnczxc87.9-35.2The [facility] HospitalComment on above:Performed By: #### POCGLUC #### [facility] [address] [place] [address] Dr. Juliet Valderrama (RBC) [Entitic vol]97.8 fLCritically high80.0-94.0The [facility] HospitalComment on above:Performed By: #### POCGLUC #### [facility] [address] [place] [address] Dr. Juliet Dumont #0.7 103/ulNormal0.3-0.8The [facility] HospitalComment on above:Performed By: #### POCGLUC #### [facility] [address] [place] [address] Dr. Juliet Maciasocytes/100 WBC (Bld)9.9 %Normal1.7-12.0The [facility] Comment on above:Performed By: #### POCGLUC #### [facility] [address] [place] [address] [address] Juliet StoryUT #3.7 103/ulNormal1.4-6.5The [facility] HospitalComment on above:Performed By: #### POCGLUC #### [facility] [address] [place] [address] [address] Juliet Storyutrophils/100 WBC (Bld)54.4 %Igtsms18.0-75.0The [facility] HospitalComment on above:Performed By: #### POCGLUC #### [facility] [address] [place] [address] [address] Juliet WilkesPlatelet mean volume (Bld) [Entitic vol]9.0 fLCritically low 9.5-13.5The [facility] HospitalComment on above:Performed By: #### POCGLUC #### [facility] [address] [place] [address] Dr. Juliet WilkesPLT211 103/lmNtwwmk054-890Ysg [facility] HospitalComment on above: Performed By: #### POCGLUC #### [facility] [address] [place] [address] Dr. Juliet WilkesRBC4.46 106/ulCritically low4.70-6.10The [facility] HospitalComment on above:Performed By: #### POCGLUC #### [facility] [address] [place] [address] Dr. Juliet WilkesWBC6.8 103/ulNormal4.0-11.0The [facility] HospitalComment on above: Performed By: #### POCGLUC #### [facility] [address] [place] [address] Dr. Juliet WilkesCHILDREN'S [facility] GLUCOSEon 37-37-9587Vgbrorn [Mass/Vol]100 mg/dL Wfjuah04-415Gdh [facility] HospitalComment on above:Performed By: #### POCGLUC #### [facility] [address] [place] [address] Dr. Juliet WilkesGlucose [Mass/Vol]94 mg/jAXfqtvm35-857Cpa [facility] Comment on above:Performed By: #### A1C #### [facility] [address] [place] [address] [address] Juliet WilkesPROF CHEM 8 (BAS METB)on 86-28-5626Tyiio gap [Moles/Vol]14.0 mmol/LNormalWexner Medical CenterComment on above:Performed By: #### BMP #### [facility] [address] [place] [address] [address] Juliet WilkesCalcium [Mass/Vol]9.0 mg/dLNormal8.5-10.1[facility] Comment on above:Performed By: #### BMP #### [facility] [address] [place] [address] [address] Juliet WilkesChloride [Moles/Vol]107 mmol/MZheyyr77-697TyzWexner Medical Center Comment on above:Performed By: #### BMP #### [facility] [address] [place] [address] Dr. Juliet WilkesCO2 [Moles/Vol]28.7 mmol/NZlvrtr39.0-32.0[facility] Comment on above:Performed By: #### BMP #### [facility] [address] [place] [address] Dr. Juliet WilkesCreatinine [Mass/Vol]1.41 mg/dLCritically high0.70-1.30W[facility]ner Medical CenterComment on above:Performed By: #### BMP #### [facility] [address] [place] [address] [address] Juliet HuddlestonGFR-AF NAURUAN>60Normal>=60The [facility] HospitalComment on above:Performed By: #### BMP #### [facility] [address] [place] [address] [address] Juliet HuddlestonGFR-NON AF SAHRVRTW45 mL/min/1.19l5Ndknpwjipn low>=60W[facility]ner Medical CenterComment on above:Performed By: #### BMP #### [facility] [address] [place] [address] Dr. Juliet WilkesGlucose [Mass/Vol]95 mg/tKRryvmn07-172LivWexner Medical Center Comment on above:Performed By: #### BMP #### [facility] [address] [place], [place] [address] Dr. Juliet WilkesPotassium [Moles/Vol]4.7 mmol/LNormal3.5-5.1[facility] Comment on above:Performed By: #### BMP #### [facility] [address] [place], [place] [address] Dr. Juliet WilkesSodium [Moles/Vol]145 mmol/AYghnuo742-466Fta [facility] Comment on above:Performed By: #### BMP #### [facility] [address] [place], [place] [address] Dr. Juliet WilkesUrea nitrogen [Mass/Vol]25.0 mg/dLCritically high7.0-18.0W[facility]ner Medical CenterComment on above:Performed By: #### BMP #### [facility] [address] [place], [place] [address] Dr. Juliet Yee nitrogen/Creatinine [Mass ratio]17.7 mg/mgNormalThe [facility] HospitalComment on above:Performed By: #### BMP #### [facility] [address] [place], [place] [address] Dr. Juliet Watson Visiton 90-95-3895Tfcpmh-up [id number] Carlos Caraballo 1955 M Date Provider Department Center 07/31/2022 [facility] Family History Problem Relation Age of Onset Stroke Father Family Status - Relation Status Age at Father Level of Service:[address] [place] OFFICE/OUTPATIENT ESTABLISHED MOD MDM 30-39 MIN Reason for Visit and Comments: Hyperlipidemia [182] Hypertension [074387] history of PE [Other]NormalUnMercy Health West HospitalCULTURE WOUNDon 50-92-9267SGYKIIE WOUNDCulture Observations: No growth of anaerobes at 72 hours. Isolate 1 Stenotrophomonas maltophilia Moderate growth of ORGANISM 1 Stenotrophomonas maltophilia ANTIBIOTIC M.I.C RX STATUS Levofloxacin 1 S F Trimethoprim/Sulfamethoxazole <=20 S FNormalWexner Medical CenterComment on above:Performed By: #### WOUNDCX ####[facility] [address] [place], [place] [address]XsDr. Juliet WilkesGLYCOHEMOGLOBIN A1Con 45-93-3446MEJ RECOMMENDATIONSEE BELOWPremier Health Miami Valley Hospital SouthComment on above:Result Comment: ADA RECOMMENDED LIMIT 4.0 - 6.0 ADA THERAPEUTIC TARGET < 7.0 ACTION SUGGESTED > 7.0Performed By: #### A1C #### [facility] [address] [place] [address] [address] Juliet WilkesGlucose [Mass/Vol]111 mg/dLNoKettering Health Main CampusComment on above:Performed By: #### A1C #### [facility] [address] [place] [address] [address] Juliet WilkesHbA1c (Bld) [Mass fraction]5.5 %Normal4.5-6.2The [facility] HospitalComment on above:Performed By: #### A1C #### [facility] [address] [place] [address] [address] Juliet JoyCARDIChio M/2D COMPLETEon 35-41-1600XEBZOMMWEP M/2D COMPLETE Patient: CARLOS CARABALLO Exam Date: 06/28/2022 : 1955 Gender:M Ordering : DR LOLY BARNARD M.D. Admission #: [id number] Family : Order #: [id number] CLICK HERE TO VIEW EXAM ECHOCARDIOGRAM REPORT [...] by: Scout Mcmanus M.D. on 07/04/2022 at 13:38[facility] Hospital SouthURIC ACID SERUMon 55-79-0155Oudkg [Mass/Vol]6.9 mg/dLNormal3.5-7.2W[facility]ner Medical CenterComment on above:Performed By: #### A1C #### [facility] [address] [place] [address] Dr. Juliet WilkesXR KUB 1 VIEWon 02-76-0656DO KUB 1 VIEWEXAMINATION: XR KUB 1 VIEW [...] Electronically authenticated by: RACHEAL STEELE Date: 2022-05-28 07:31[facility] Hospital SouthCBC AUTO DIFFon 73-42-8585KSUU #0.1 103/ulNormal0.0-0.1W[facility]ner Medical CenterComment on above:Performed By: #### CBC #### [facility] [address] [place] [address] Dr. Juliet Dobbinssophils/100 WBC (Bld)0.9 %Normal0.2-2.0[facility] Comment on above:Performed By: #### CBC #### [facility] [address] [place] [address] Dr. Juliet Padgett #0.4 103/ulNormal0.0-0.7The [facility] HospitalComment on above: Performed By: #### CBC #### [facility] [address] [place] [address] Dr. Juliet Huddlestonosinophils/100 WBC (Bld)5.2 %Normal0.9-7.0[facility] Comment on above:Performed By: #### CBC #### [facility] [address] [place] [address] Dr. Juliet Huddlestonrythrocyte distribution width (RBC) [Ratio]13.6 %Dvpfrt92.0-15.0 [facility] Medical Centerment on above:Performed By: #### CBC #### [facility] [address] [place] [address] Dr. Juliet WilkesHematocrit (Bld) [Volume fraction]40.5 %Critically low42.0-54.0 The [facility] HospitalCommunson medical center on above:Performed By: #### CBC #### [facility] [address] [place] [address] Dr. Juliet WilkesHemoglobin (Bld) [Mass/Vol]13.7 g/dLCritically low14.0-18.0The Mary Rutan HospitalComment on above:Performed By: #### CBC #### [facility] [address] [place] [address] Dr. Juliet Cervantes #0.02 10e3/ulNormal0.00-0.03The [facility] HospitalCommunson [facility] center on above:Performed By: #### CBC #### [facility] [address] [place] [address] Dr. Juliet Cervantes %0.3 %Normal0.0-0.5The [facility] HospitalCommunson [facility] center on above: Performed By: #### CBC #### [facility] [address] [place] [address] Dr. Juliet Arambula #1.9 103/ulNormal1.2-3.8The [facility] HospitalCommunson [facility] center on above:Performed By: #### CBC #### [facility] [address] [place] [address] Dr. Juliet Westhocytes/100 WBC (Bld)27.7 %Vfhggp95.5-60.0The [facility] HospitalCommunson [facility] center on above:Performed By: #### CBC #### [facility] [address] [place] [address] Dr. Juliet McdanielUAL DIFF REQNONormalThe [facility] Rutan HospitalComment on above: Performed By: #### CBC #### [facility] [address] [place] [address] Dr. Juliet Yanes (RBC) [Entitic mass]33.3 zyYglrzr84.9-34.0The [facility] HospitalComment on above:Performed By: #### CBC #### [facility] [address] [place] [address] Dr. Juliet Valderrama (RBC) [Mass/Vol]33.8 g/hXFjkxob66.9-35.2The [facility] HospitalComment on above:Performed By: #### CBC #### [facility] [address] [place] [address] Dr. Juliet Valderrama (RBC) [Entitic vol]98.3 fLCritically high80.0-94.0The [facility] HospitalComment on above:Performed By: #### CBC #### [facility] [address] [place] [address] Dr. Juliet Dumont #0.7 103/ulNormal0.3-0.8The [facility] HospitalComment on above:Performed By: #### CBC #### [facility] [address] [place] [address] Dr. Juliet Maciasocytes/100 WBC (Bld)9.9 %Normal1.7-12.0[facility] Comment on above:Performed By: #### CBC #### [facility] [address] [place] [address] Dr. Juliet StoryUT #3.8 103/ulNormal1.4-6.5The [facility] HospitalComment on above:Performed By: #### CBC #### [facility] [address] [place] [address] Dr. Juliet Storyutrophils/100 WBC (Bld)56.0 %Hxztmp60.0-75.0The [facility] HospitalComment on above:Performed By: #### CBC #### [facility] [address] [place] [address] Dr. Juliet Cespedeslet mean volume (Bld) [Entitic vol]9.0 fLCritically low 9.5-13.5The [facility] HospitalComment on above:Performed By: #### CBC #### [facility] [address] [address] [address] Juliet WilkesPLT201 103/yvZcjkhj973-871Gis [facility] on above: Performed By: #### CBC #### [facility] [address] [address] [address] Juliet WilkesRBC4.12 106/ulCritically low4.70-6.10The [facility] HospitalCommunson [facility] center on above:Performed By: #### CBC #### [facility] [address] [address] [address] Juliet WilkesWBC6.7 103/ulNormal4.0-11.0The [facility] HospitalCommunson [facility] on above: Performed By: #### CBC #### [facility] [address] [address] [address] Juliet WilkesGLYCOHEMOGLOBIN A1Con 41-56-3223NDY RECOMMENDATIONSEE BELOWOhio State Harding HospitalCommunson medical center on above:Result Comment: ADA RECOMMENDED LIMIT 4.0 - 6.0 ADA THERAPEUTIC TARGET < 7.0 ACTION SUGGESTED > 7.0Performed By: #### A1C #### [facility] [address] [address] [address] Juliet WilkesGlucose [Mass/Vol]108 mg/dLNoOhioHealth Grant Medical Center on above:Performed By: #### A1C #### [facility] [address] [address] [address] Juliet WilkesHbA1c (Bld) [Mass fraction]5.4 %Normal4.5-6.2The [facility] on above:Performed By: #### A1C #### [facility] [address] [address] [address] Juliet WilkesLIPID PROFILEon 27-82-9196UEAE-HDL RATIO NORMSEE [facility] on above:Result Comment: 3.3 - 4.4 LOW RISK 4.4 - 7.1 AVERAGE RISK 7.1 - 11.0 MODERATE RISK >11.0 HIGH RISKPerformed By: #### LIPID, CMP #### [facility] [address] [address] [address] Juliet WilkesCholesterol [Mass/Vol]154 mg/dLNormal<=200The [facility] Comment on above:Performed By: #### LIPID, CMP #### [facility] [address] [address] [address] Juliet WilkesCholesterol in HDL [Mass/Vol]29 mg/dLCritically gdh44-31Nll [facility] HospitalComment on above:Performed By: #### LIPID, CMP #### [facility] [address] [address] [address] Juliet WilkesCholesterol in LDL [Mass/Vol]64.2 mg/dLPremier Health Miami Valley Hospital SouthComment on above:Performed By: #### LIPID, CMP #### [facility] [address] [place] [address] Dr. Juliet Nguyenesterroque.total/Cholesterol in HDL [Mass ratio]5.3 {ratio} NormalThe [facility] HospitalComment on above:Performed By: #### LIPID, CMP #### [facility] [address] [place] [address] Dr. Juliet Kenney NORMAL> or = 60 mg/dl - LOW CARDIOVASCULAR RISK <40 mg/dl - HIGH CARDIOVASCULAR RISKPremier Health Miami Valley Hospital SouthComment on above:Performed By: #### LIPID, CMP #### [facility] [address] [place] [address] Dr. Juliet Landaverde CALC NORMALSEE BELOWNoKettering Health Main CampusComment on above:Result Comment: <100 mg/dl OPTIMAL 100 - 129 mg/dl NEAR OR ABOVE OPTIMAL 130 - 159 mg/dl BORDERLINE HIGH 160 - 189 mg/dl HIGH >190 mg/dl VERY HIGH Performed By: #### LIPID, CMP #### [facility] [address] [address] [address] Juliet WilkesTriglyceride [Mass/Vol]304 mg/dLCritically high<=150The [facility] HospitalComment on above:Performed By: #### LIPID, CMP #### [facility] [address] [place] [address] Dr. Yilan ChangVLDL CALC60.8 mg/dLNormalThe [facility] HospitalComment on above: Performed By: #### LIPID, CMP #### [facility] [address] [place] [address] Dr. Juliet Gutierrez 14(COMP METB)on 66-55-4272Prxvfgu [Mass/Vol]3.7 g/dLNormal 3.4-5.0The [facility] HospitalComment on above:Performed By: #### LIPID, CMP #### [facility] [address] [place] [address] Dr. Juliet WilkesAlbumin/Globulin [Mass ratio]1.1 {ratio}NormalThe [facility] HospitalComment on above:Performed By: #### LIPID, CMP #### [facility] [address] [place] [address] Dr. Juliet TylerP [Catalytic activity/Vol]87 U/IKnojnp68-322Wlg [facility] HospitalComment on above:Performed By: #### LIPID, CMP #### [facility] [address] [place] [address] Dr. Juliet Benavidez [Catalytic activity/Vol]52 U/QYbmgrj83-55Eah [facility] HospitalComment on above:Performed By: #### LIPID, CMP #### [facility] [address] [place] [address] Dr. Juliet Ramirez gap [Moles/Vol]11.5 mmol/LNormalThe [facility] Comment on above:Performed By: #### LIPID, CMP #### [facility] [address] [place] [address] Dr. Juliet Holloway [Catalytic activity/Vol]27 U/YOapirx01-39Umo [facility] HospitalComment on above:Performed By: #### LIPID, CMP #### [facility] [address] [place] [address] Dr. Juliet WilkesBilirubin [Mass/Vol]0.4 mg/dLNormal0.2-1.0The [facility] Comment on above:Performed By: #### LIPID, CMP #### [facility] [address] [place], [place] [address] Dr. Juliet WilkesCalcium [Mass/Vol]8.7 mg/dLNormal8.5-10.1The [facility] Comment on above:Performed By: #### LIPID, CMP #### [facility] [address] [place] [address] Dr. Juliet WilkesChloride [Moles/Vol]106 mmol/TPrkjty23-131Pmd [facility] Comment on above:Performed By: #### LIPID, CMP #### [facility] [address] [place] [address] Dr. Juleit WilkesCO2 [Moles/Vol]28.2 mmol/BZlofcl35.0-32.0The [facility] Comment on above:Performed By: #### LIPID, CMP #### [facility] [address] [place] [address] Dr. Juliet WilkesCreatinine [Mass/Vol]1.21 mg/dLNormal0.70-1.30The [facility] HospitalComment on above:Performed By: #### LIPID, CMP #### [facility] [address] [place] [address] Dr. Juliet HuddlestonGFR-AF NAURUAN>60Normal>=60The [facility] HospitalComment on above:Performed By: #### LIPID, CMP #### [facility] [address] [place] [address] Dr. Juliet HuddlestonGFR-NON AF NAURUAN=60Normal>=60The [facility] HospitalComment on above:Performed By: #### LIPID, CMP #### [facility] [address] [place] [address] Dr. Juliet WilkesGlobulin (S) [Mass/Vol]3.4 g/dLNormalThe [facility] HospitalComment on above:Performed By: #### LIPID, CMP #### [facility] [address] [place] [address] Dr. Juliet WilkesGlucose [Mass/Vol]100 mg/vYWfjmmc16-076Rcn [facility] Comment on above:Performed By: #### LIPID, CMP #### [facility] [address] [place], [place] [address] Dr. Juliet WilkesPotassium [Moles/Vol]4.7 mmol/LNormal3.5-5.1The [facility] Comment on above:Performed By: #### LIPID, CMP #### [facility] [address] [place] [address] Dr. Juliet WilkesProtein [Mass/Vol]7.1 g/dLNormal6.4-8.2[facility] Comment on above:Performed By: #### LIPID, CMP #### [facility] [address] [address] [address] Juliet WilkesSodium [Moles/Vol]141 mmol/IKwaira967-350Yxc [facility] Comment on above:Performed By: #### LIPID, CMP #### [facility] [address] [place] [address] Dr. Juliet WilkesUrea nitrogen [Mass/Vol]23.0 mg/dLCritically high7.0-18.0The [facility] HospitalComment on above:Performed By: #### LIPID, CMP #### [facility] [address] [address] [address] Juliet Yee nitrogen/Creatinine [Mass ratio]19.0 mg/mgNoalThDayton Children's HospitalComment on above:Performed By: #### LIPID, CMP #### [facility] [address] [place] [address] Dr. Juliet WilkesVC CONSULT FOLLOWUPon 57-97-6449IC CONSULT FOLLOWUPPatient: CORNELIA, CARLOS Marianna Exam Date: 04/08/2022 : 1955 Gender:M Ordering : DR RACHEAL STEELE M.D. Admission #: [id number] Family : Order #: [id number] CLICK HERE [...] by: Racheal Steele MD on 04/08/2022 at 11:30[facility] SouthVC EXT VENOUS RT LIMITEDon 10-24-8640HY EXT VENOUS RT LIMITEDPatient: CARLOS CARABALLO Exam Date: 04/08/2022 : 1955 Gender:M Ordering : DR RACHEAL STEELE M.D. Admission #: [id number] Family : Order #: [id number] CLICK HERE TO VIEW EXAM RADIOLOGY REPORT [...] by: Racheal Steele MD on 04/08/2022 at 11:31[facility] SouthVC INJ FOAM SCLERO W US MLTIon 69-04-9606RK INJ FOAM SCLERO W US MLTIPatient: CARLOS CARABALLO LeniRusty Exam Date: 04/03/2022 : 1955 Gender:M Ordering : DR RACHEAL STEELE M.D. Admission #: [id number] Family : DR NATHALY BOONE . Order #: [id number] CLICK HERE TO VIEW EXAM RADIOLOGY REPORT [...] hours, av (more content not included)...Normal The [facility] HospitalVC CONSULT FOLLOWUPon 49-56-8764PH CONSULT FOLLOWUPPatient: CARLOS CARABALLO Exam Date: 03/25/2022 : 1955 Gender:M Ordering : DR RACHEAL STEELE M.D. Admission #: [id number] Family : Order #: [id number] CLICK HERE TO VIEW EXAM RADIOLOGY REPORT [...] by: Elin Mccartney M.D. on 03/25/2022 at 08:41[facility] SouthVC EXT VENOUS RT LIMITEDon 74-19-9783ZU EXT VENOUS RT LIMITEDPatient: CARLOS CARABALLO. Exam Date: 03/25/2022 : 1955 Gender:M Ordering : DR RACHEAL STEELE M.D. Admission #: [id number] Family : Order #: [id number] CLICK HERE TO VIEW EXAM RADIOLOGY REPORT [...] by: Elin Mccartney M.D. on 03/25/2022 at 08:39[facility] SouthVC ENDOVENOUS ABL 1ST V RTon 16-26-5127OW ENDOVENOUS ABL 1ST V RT Patient: CARLOS CARABALLO Exam Date: 03/19/2022 : 1955 Gender:M Ordering : DR RACHEAL STEELE M.D. Admission #: [id number] Family : Order #: [id number] CLICK HERE TO VIEW EXAM RADIOLOGY REPORT [...] by: Racheal Steele MD on 03/19/2022 at 08:58[facility] SouthVC CONSULT FOLLOWUPon 73-72-7901GU CONSULT FOLLOWUPPatient: CARLOS CARABALLO Exam Date: 02/18/2022 : 1955 Gender:M Ordering : DR RACHEAL STEELE M.D. Admission #: [id number] Family : Order #: [id number] CLICK HERE TO VIEW EXAM RADIOLOGY REPORT [...] by: Racheal Steele MD on 02/18/2022 at 09:45[facility] SouthVC EXT VENOUS LT LIMITEDon 23-57-7864RV EXT VENOUS LT LIMITEDPatient: CARLOS CARABALLO Exam Date: 02/18/2022 : 1955 Gender:M Ordering : DR RACHEAL STEELE M.D. Admission #: [id number] Family : Order #: [id number] CLICK HERE TO VIEW EXAM RADIOLOGY REPORT [...] varicose veins remain off of SSV and lusterer mid posterior calf. *Exam performed in accordance with [facility] practice guidelines- Peripheral venous ultrasound, October 07, 2009. 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 Admission #: [id number] Family : Order #: [id number] CLICK HERE TO VIEW EXAM RADIOLOGY REPORT [...] by: Elin Mccartney M.D. on 02/13/2022 at 10:15NAdena Health SystemVC CONSULT FOLLOWUPon 14-09-0929RH CONSULT FOLLOWUPPatient: CARLOS CARABALLO Exam Date: 02/06/2022 : 1955 Gender:M Ordering : DR RACHEAL STEELE M.D. Admission #: [id number] Family : Order #: [id number] CLICK HERE TO VIEW EXAM RADIOLOGY REPORT [...] by: Elin Mccartney M.D. on 02/06/2022 at 09:53[facility] SouthVC EXT VENOUS LT LIMITEDon 30-85-0700FL EXT VENOUS LT LIMITEDPatient: CARLOS CARABALLO Exam Date: 02/06/2022 : 1955 Gender:M Ordering : DR RACHEAL STEELE M.D. Admission #: [id number] Family : Order #: [id number] CLICK HERE TO VIEW EXAM RADIOLOGY REPORT [...] by: Elin Mccartney M.D. on 02/06/2022 at 09:49[facility] SouthGLYCOHEMOGLOBIN A1Con 90-41-6205JRY RECOMMENDATIONSEE BELOWPremier Health Miami Valley Hospital SouthComment on above:Result Comment: ADA RECOMMENDED LIMIT 4.0 - 6.0 ADA THERAPEUTIC TARGET < 7.0 ACTION SUGGESTED > 7.0Performed By: #### A1C #### [facility] [address] [address] [address] Juliet WilkesGlucose [Mass/Vol]108 mg/dLNormalThe [facility] HospitalComment on above:Performed By: #### A1C #### [facility] [address] [address] [address] Juliet WilkesHbA1c (Bld) [Mass fraction]5.4 %Normal4.5-6.2The [facility] HospitalComment on above:Performed By: #### A1C #### [facility] [address] [address] [address] Juliet WilkesPROF 14(COMP METB)on 79-24-8359Gcqjhla [Mass/Vol]4.0 g/dLNormal 3.4-5.0The [facility] HospitalComment on above:Performed By: #### CMP ####[facility] [address] [address]Dr.Juliet Wilkes Albumin/Globulin [Mass ratio]1.2 {ratio}NormalThe [facility] HospitalComment on above:Performed By: #### CMP ####[facility] [address] [address]Dr.Juliet WilkesALP [Catalytic activity/Vol]89 U/LNormal 46-116The [facility] HospitalComment on above:Performed By: #### CMP ####[facility] [address] [address]Dr.Juliet WilkesALT [Catalytic activity/Vol]81 U/LCritically qquv07-86Vgt [facility] Medical Centerment on above:Performed By: #### CMP ####[facility] [address] [address]DrNatalie WilkesAnion gap [Moles/Vol]13.6 mmol/LNormal The [facility] HospitalComment on above:Performed By: #### CMP ####[facility] [address] [place], [place] [address]Dr.Yilan ChangAST [Catalytic activity/Vol]32 U/ZQuxipw57-19Vgt [facility] HospitalComment on above: Performed By: #### CMP ####[facility] [address] [place], [place] [address]Dr.Yilan ChangBilirubin [Mass/Vol]0.5 mg/dLNormal 0.2-1.0The [facility] HospitalComment on above:Performed By: #### CMP ####[facility] [address] [place], [place] [address]Dr.Yilan Wilkes Calcium [Mass/Vol]8.9 mg/dLNormal8.5-10.1The [facility] HospitalComment on above: Performed By: #### CMP ####[facility] [address] [place], [place] [address]Dr.Yilan ChangChloride [Moles/Vol]106 mmol/LNormal 98-107The [facility] HospitalComment on above:Performed By: #### CMP ####[facility] [address] [place], [place] [address]Dr.Yilan ChangCO2 [Moles/Vol]27.1 mmol/DQpexbv68.0-32.0The [facility] HospitalComment on above: Performed By: #### CMP ####[facility] [address] [place], [place] [address]Dr.Yilan ChangCreatinine [Mass/Vol]1.46 mg/dL Critically high0.70-1.30The [facility] HospitalComment on above:Performed By: #### CMP ####[facility] [address] [place], [place] [address]Dr.Yilan ChangEGFR-AF JGKLBCSM86 mL/min/1.13s0Dbeercygcr low>=60The [facility] HospitalCommunson medical center on above:Performed By: #### CMP ####[facility] [address] [place], [place] [address]Dr.Yilan ChangEGFR-NON AF JSSUXYNU39 mL/min/1.54b7Qxdoxkpahu low>=60The [facility] HospitalComment on above: Performed By: #### CMP ####[facility] [address] [address]Dr.Yilan ChangGlobulin (S) [Mass/Vol]3.4 g/dLNormCleveland Clinic Mentor HospitalComment on above:Performed By: #### CMP ####[facility] [address] [place], [place] [address]Dr.Yilan ChangGlucose [Mass/Vol]93 mg/tSOuwtlc98-444Fjr [facility] HospitalComment on above:Performed By: #### CMP ####[facility] [address] [place], [place] [address]Dr.Yilan ChangPotassium [Moles/Vol]4.7 mmol/LNormal3.5-5.1The [facility] HospitalComment on above:Performed By: #### CMP ####[facility] [address] [place], [place] [address]Dr.Yilan ChangProtein [Mass/Vol]7.4 g/dLNormal6.4-8.2The [facility] HospitalComment on above:Performed By: #### CMP ####[facility] [address] [place], [place] [address]Dr.Yilan ChangSodium [Moles/Vol]142 mmol/VOgxdlm517-247Hpw [facility] HospitalComment on above:Performed By: #### CMP ####[facility] [address] [place], [place] [address]Dr.Yilan ChangUrea nitrogen [Mass/Vol]25.0 mg/dLCritically high7.0-18.0The [facility] HospitalComment on above:Performed By: #### CMP ####[facility] [address] [address]Dr.Yilan ChangUrea nitrogen/Creatinine [Mass ratio] 17.1 mg/mgNoKettering Health Main CampusComment on above:Performed By: #### CMP ####[facility] [address] [place], [place] [address]Dr. Yilan ChangVC ENDOVENOUS ABL 1ST V LTon 83-65-0247HF ENDOVENOUS ABL 1ST V LT Patient: CORNELIA CARLOS Marianna Exam Date: 01/30/2022 : 1955 Gender:M Ordering : DR RACHEAL STEELE M.D. Admission #: [id number] Family : Order #: [id number] CLICK HERE TO VIEW EXAM RADIOLOGY REPORT [...] by: Elin Mccartney M.D. on 01/30/2022 at 12:00NoKettering Health Main CampusPOINT OF CARE GLUCOSEon 57-27-2707Blpqpct [Mass/Vol]84 mg/zDWmvhvi15-328 The [facility] HospitalComment on above:Performed By: #### POCGLUC #### [facility] [address] [place] [address] Dr. Juliet WilkesVC COMP CONSULTATIONon 92-72-2318JG COMP CONSULTATIONPatient: CARLOS CARABALLORusty Exam Date: 01/21/2022 : 1955 Gender:M Ordering : DR RACHEAL STEELE M.D. Admission #: [id number] Family : Order #: [id number] CLICK HERE TO VIEW EXAM RADIOLOGY REPORT [...] for years. The patient is retired from [employer] after working 42 years. The patient denies [...] additional information, and this was performed [facility]. See separate history and physical [...] incompetent branch saphenous tributary/varicose veins. Bilateral incompetent lusterer veins. PHYSICAL EXAM: The right leg demonstrates [...] pulses were present bilaterally. IMPRESSION: 1. Bilateral oavp-sk-ftcspmpx great saphenous vein and mild right small [...] by: Racheal Steele MD on 01/21/2022 at 11:46[facility] SouthVC VENOUS REFLUX MARIE LMTon 79-19-2794OC VENOUS REFLUX MARIE LMTPatient: CARLOS CARABALLO Exam Date: 01/21/2022 : 1955 Gender:M Ordering : DR RACHEAL STEELE M.D. Admission #: [id number] Family : DR NATHALY BOONE . Order #: [id number] CLICK HERE TO VIEW EXAM RADIOLOGY REPORT [...] Compressibility: Normal. Flow: Mild deep venous reflux. [employer]: Post/prox calf 5.9mm, 0.7s reflux. Prox/med calf [...] by: Racheal Steele MD on 01/21/2022 at 10:40NoKettering Health Main Campus POINT OF CARE GLUCOSEon 22-85-6686Dsqrgna [Mass/Vol]87 mg/aBVmqliw74-055OpyWexner Medical CenterComment on above:Performed By: #### POCGLUC ####[facility] [address] [place], [place] [address]Bl. Dianajavier Ricky SURGICAL PATHOLOGYon 30-91-3956SOFGBMRJ PATHOLOGYSpecimen #: [id number] Submitting Physician: JULIET WILKES M.D. FINAL DIAGNOSIS [place], [place]; [id number] (12/07/2020) Liver, mass , biopsy (A1, A2, [...] do not hesitate to contact us at [phone] with questions or if additional follow up information becomes available. This case was reviewed in conjunction with the GI pathology fellow, Apoorva Diallo MD. The following stains were performed at the [facility] in order to further characterize this [...] in-situ hybridization tests have been determined by [facility]'s [facility] [place] ([facility]ENTERPLTN) in a manner consistent with CLIA requirements. One or more of these tests have not been cleared or approved by the FDA. [facility] is regulated under CLIA as qualified to perform high-complexity testing. These tests are used for clinical purposes. They should not be regarded as investigational or for research. Nicolasa Cheema M.D. (Electronic Signature) SPECIMEN SUBMITTED A: 12 slides [id number] CLINICAL DATA [facility] Date of Report: 03/27/2021 Date of Procedure: 03/16/2021 Date of Receipt: 03/15/2021 Submitted by: JULIET WILKES M.D. Location: Diagnostic interpretation performed at [facility], [address] [place] [address]. CLIA Number: [id number] Clinic [facility] Comment on above:Performed By: #### S #### See report for performing lab information. Vital Signs Date TimeVital SignValuePerforming TublbswhqMoixrcsh95-29-5960 08:53-0400Body cmTulio Ruggiero MD Work Phone: [facility] CenterErmpszxgfi23-06-1986 08:53-0400Body mass index (BMI) [Ratio]37.62 kg/m2Tulio Ruggiero MD Work Phone: [facility] CenterYycoykivpr08-50-0211 08:53-0400Body temperature 97.11 [degF]Tulio Ruggiero MD Work Phone: [facility] CenterNhvssrphan43-48-3893 08:53-0400Body .9 kgTulio Ruggiero MD Work Phone: [facility] CenterOmjjwopwhk68-97-8379 08:53-0400Diastolic blood mm[Hg]Tulio Ruggiero MD Work Phone: [facility] CenterIruhbjkxtt57-27-2777 08:53-0400Heart rate84 /min Tulio Ruggiero MD Work Phone: [facility] CenterQfgesrleqv76-15-2307 08:53-0400Respiratory rate20 /minTulio Ruggiero MD Work Phone: [facility] CenterNyqowcrwmv35-58-0029 08:53-3565UsP0% (BldA) [Mass fraction]98 %Tulio Ruggiero MD Work Phone: [facility] CenterYhpcuvcxqz88-36-0494 08:53-0400Systolic blood jwzoufjb317 mm[Hg]Tulio Ruggiero MD Work Phone: [facility] CenterTwttybgins64-44-4394 13:22-0400Body ydshtc689 cm Tulio Ruggiero MD Work Phone: [facility] CenterBvfagfepqx93-97-4618 13:22-0400Body mass index (BMI) [Ratio]38.26 kg/m2Tulio Ruggiero MD Work Phone: [facility] CenterCguimlguhq32-77-9300 13:22-0400Body temperature 97.11 [degF]Tulio Ruggiero MD Work Phone: [facility] CenterYkefmxgppk30-56-6839 13:22-0400Body .17 kgTulio Ruggiero MD Work Phone: [facility] CenterAgqvsjpege82-55-4798 13:22-0400Diastolic blood yxzdodfz65 mm[Hg]Tulio Ruggiero MD Work Phone: [facility] CenterXdzavddelp72-95-0812 13:22-0400Heart rate97 /min Tulio uRggiero MD Work Phone: [facility] CenterVtlhmrrejf78-23-7741 13:22-0400Respiratory rate18 /minTulio Ruggiero MD Work Phone: [facility] CenterZbvfohdxql81-83-1976 13:22-2655NgJ8% (BldA) [Mass fraction]99 %Tulio Ruggiero MD Work Phone: [facility] CenterEmulmhmoox15-73-8360 13:22-0400Systolic blood udahkbpg318 mm[Hg]Tulio Ruggiero MD Work Phone: [phone])924-[address] [place], [place] [address]Drhvvdfvyt34-96-3305 09:11-0500Body mass index (BMI) [Ratio]37.75 kg/m2Tulio Ruggiero MD Work Phone: [facility] CenterSgtrgjifkp43-01-3123 09:11-0500Body temperature 98.4 [degF]Tulio Ruggiero MD Work Phone: [facility] CenterAwtzqlfxba30-68-0533 09:11-0500Body ejjkrm605.36 kgTulio Ruggiero MD Work Phone: 1(032)523-[address] [place], [place] [address]Zkiduccejj70-29-0725 09:11-0500Diastolic blood mm[Hg]Tulio Ruggiero MD Work Phone: [facility] CenterXycbrhbqlz28-43-1969 09:11-0500Heart rate96 /min Tulio Ruggiero MD Work Phone: [facility] CenterYvjulepvxe21-97-8685 09:11-0500Respiratory rate18 /minTulio Ruggiero MD Work Phone: [facility] CenterIdigyysglg75-51-8461 09:11-7711YaC5% (BldA) [Mass fraction]96 %Tulio Ruggiero MD Work Phone: [facility] CenterVgmkaqtvlv72-89-8533 09:11-0500Systolic blood mm[Hg]Tulio Ruggiero MD Work Phone: [facility] CenterEhodkyxiqw49-50-3853 08:56-0500Blood Pressure LocationJENNIFER DAVID [facility]11-14-2024 08:56-0500Body drbnckorjgn68.6 [degF]ABIODUN DAVID [facility]11-14-2024 08:56-0500Diastolic blood hrnemooj36 mm[Hg]ABIODUN DAVID [facility]11-14-2024 08:56-0500Heart rate79 /minJENNIFER DAVID [facility]11-14-2024 08:56-0500Respiratory rate18 /minJENNIFER DAVID [facility]11-14-2024 08:56-0500Systolic blood yofwpquo951 mm[Hg]ABIODUN DAVID [facility]04-23-2024 08:38-0400Blood Pressure LocationJENNIFER DAVID [facility]04-23-2024 08:38-0400Diastolic blood wsomapws89 mm[Hg]ABIODUN DAVID [facility]04-23-2024 08:38-0400Heart rate80 /minJENNIFER DAVID [facility]04-23-2024 08:38-0400Respiratory rate16 /minJENNIFER DAVID [facility]04-23-2024 08:38-0400Systolic blood zsdgymcp563 mm[Hg]ABIODUN DAVID [facility]11-21-2023 09:59-0500Blood Pressure LocationJENNIFER DAVID [facility]11-21-2023 09:59-0500Diastolic blood zeojaqgs39 mm[Hg]ABIODUN DAVID [facility]11-21-2023 09:59-0500Heart rate70 /minJENNIFER DAVID [facility]11-21-2023 09:59-0500Respiratory rate16 /minJENNIFER DAVID [facility]11-21-2023 09:59-0500Systolic blood dtfpietj435 mm[Hg]ABIODUN DAVID [facility]11-10-2022 09:45-0500Body khsioo286.96 cmThomas Olexa Other [employer] Other 11-10-2022 09:45-0500Body mass index (BMI) [Ratio] 40.57 kg/h1Xwoesi Olexa Other [employer] Other 11-10-2022 09:45-0500Body jdseae990.34 kgThomas Olexa Other [employer] Other 01-25-2022 14:15-0500Body gbeleq044.96 cmThomas Olexa Other [employer] Other 01-25-2022 14:15-0500Body mass index (BMI) [Ratio] 40.64 kg/c6Miapmc Olexa Other [employer] Other 01-25-2022 14:15-0500Body emtzxo905.61 kgThomas Olexa Other [employer] Other 09-30-2021 10:30-0400Body bedeuz427.96 cmDavid Hykes Other [employer] Other 09-30-2021 10:30-0400Body mass index (BMI) [Ratio] 41.75 kg/m7Qxycx Hykes Other [employer] Other 09-30-2021 10:30-0400Body .51 kgDavid Hykes Other [employer] Other 09-30-2021 10:30-0400Diastolic blood nxyaybuv03 mm[Hg] Racheal Daniels Other [employer] Other 09-30-2021 10:30-0400Systolic blood krhckgen189 mm[Hg] Racheal Daniels Other [employer] Other Encounters Encounter DateEncounter TypeCare ProviderFacilityStart: 80-72-8076iauhtntorx Vika X OrzechFacility:EU BellevueStart: 03-06-2025 End: 91-51-8570RldjkcGbmw Naderer MD Work Phone: noms CW FMComment on above: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)Start: 01-31-2025 End: 74-90-7233Gupijeyxi Result EncounterGeneric External Data ProviderNOMS External Department UnsolicitedStart: 01-31-2025 End: 85-42-0266Wriwcrkfl Result EncounterGeneric External Data ProviderNOMS External Department UnsolicitedStart: 01-31-2025 End: 91-06-1936khbyhyswulLLEPJ Te [facility]ENTERBINATogus [facility] HospitalStart: 01-31-2025 End: 67-09-0917Rdfqtmefvn hospital visit by physicianMwh Additional [facility] RadiologyComment on above:Aftercare following left knee joint replacement surgeryStart: 01-13-2025 End: 54-44-7992Utfoonwxo Result EncounterTulio Ruggiero MD Work Phone: noms External Department UnsolicitedStart: 01-13-2025 End: 65-43-7595Ghrkppgae Result EncounterTulio Ruggiero MD Work Phone: noms External Department UnsolicitedStart: 01-12-2025 End: 63-71-4784Zpptct flowsAracely Ruggiero MD Work Phone: [facility] CW FMStart: 01-12-2025 End: 06-23-5700Couibl flowsAracely Ruggiero MD Work Phone: [facility] CW FMStart: 01-12-2025 End: 48-63-1091Orhjog outpatient visit 25 minutesTulio Ruggiero MD Work [...] index (BMI) of37.0 to 37.9 in adult ([facility]-HCC); Type 2 diabetes mellitus with diabetic chronic kidney disease (HCC); Chronic kidney disease, stage 3a ([facility]-HCC)Start: 01-12-2025 End: 33-76-7616trsujyltidJCNB NADERERNot AvailableStart: 12-31-2024 End: 89-92-3305Rhswdnwjm Result EncounterGeneric External Data ProviderNOMS External Department UnsolicitedStart: 12-31-2024 End: 04-78-8894Abvsmqohb Result EncounterGeneric External Data ProviderNOMS External Department UnsolicitedStart: 12-06-2024 End: 12-28-3789MlprmfXrws Naderer MD Work Phone: noms CWM FMComment on above:Polyneuropathy due to type 2 diabetes mellitus ([facility]/HCC)Start: 11-08-2024 End: 66-41-4176YfjirvGxgi Naderer MD Work Phone: noms CWM FMComment on above:Male hypogonadismStart: 10-19-2024 End: 18-05-9478Zfzuff Radha Ruggiero MD Work Phone: NOYA CWM FMComment on above:Annual physical exam (Primary Dx); Morbid obesity ([facility]); Polyneuropathy due to type 2 diabetes mellitus ([facility]); Type 2 diabetes mellitus with hyperglycemia, without long-term current use of insulin ([facility]); Arthritis, goutyStart: 10-19-2024 End: 23-46-1367Ibggoxt encounter procedureTulio Ruggiero MD Work Phone: [facility] Work Phone: Start: 10-13-2024 End: 69-59-0887Ldtgkq flowsAracely Ruggiero MD Work Phone: noms CWM FMStart: 10-13-2024 End: 86-93-9248Kfebbb Thomas Ruggiero MD Work Phone: [facility] CWM FMStart: 10-13-2024 End: 84-02-6121Mgltmc outpatient visit 15 minutesTulio Ruggiero MD Work Phone: [facility] CWM FMComment on above:Abscess of abdominal wall (Primary Dx)Start: 10-13-2024 End: 96-59-7663ilpuzbeunbLKOY NADERERNot AvailableStart: 10-04-2024 End: 81-10-2618Vzogjovyn Result EncounterGeneric External Data ProviderNOMS External Department UnsolicitedStart: 10-04-2024 End: 38-19-0024Rjgpleazv Result EncounterGeneric External Data ProviderNOMS External Department UnsolicitedStart: 09-06-2024 End: 35-20-1505Mwrimcxkz Result EncounterGeneric External Data ProviderNOMS External Department UnsolicitedStart: 09-06-2024 End: 82-83-1067Dbdwjjprm Result EncounterGeneric External Data ProviderNOMS External Department UnsolicitedStart: 08-24-2024 End: 93-04-5997Cruytlmpp Result EncounterGeneric External Data ProviderNOMS External Department UnsolicitedStart: 08-24-2024 End: 59-88-8678Tncrkgqoh Result EncounterGeneric External Data ProviderNOMS External Department UnsolicitedStart: 08-23-2024 End: 69-64-6518Yjxsewyhj Result EncounterGeneric External Data ProviderNOMS External Department UnsolicitedStart: 08-23-2024 End: 67-15-2127Zkvowvulc Result EncounterGeneric External Data ProviderNOMS External Department UnsolicitedStart: 08-19-2024 End: 07-54-9077Zmwbhmfgl Result EncounterGeneric External Data ProviderNOMS External Department UnsolicitedStart: 08-19-2024 End: 32-73-9669Wazzkehku Result EncounterGeneric External Data ProviderNOMS External Department UnsolicitedStart: 08-07-2024 End: 54-57-0578FfkdchUsiv Naderer MD Work Phone: noms CWM FMComment on above:Morbid obesity (CMS/HCC); Polyneuropathy due to type 2 diabetes mellitus ([facility]/HCC); Type 2 diabetes mellitus with hyperglycemia, without long-term current use of insulin ([facility])Start: 08-05-2024 End: 21-46-9317Ligyqawlz Result EncounterGeneric External Data ProviderNOMS External Department UnsolicitedStart: 08-05-2024 End: 76-77-1631Nlmynaxvf Result EncounterGeneric External Data ProviderNOMS External Department UnsolicitedStart: 07-28-2024 End: 02-29-2280Netecn OnlyTulio Ruggiero MD Work Phone: [facility]oms CW FMComment on above:Type 2 diabetes mellitus with hyperglycemia, without long-term current use of insulin ([facility]/HCC) (Primary Dx); Dyslipidemia ([facility]); Class 2 severe obesity due to excess calories with serious comorbidity and body mass index (BMI) of37.0 to 37.9 in adult ([facility]); Encounter for long-term current use of medication; Screening PSA (prostate specific antigen)Start: 07-26-2024 End: 97-57-0907vnfbjfgyleUzifdKindred Healthcare DOMilitary Health Systemity:[facility] Start: 07-23-2024 End: 42-74-9663hqklthucxwMpudr Jay Mathews DOShiprock-[facility] Centerb:[facility] Start: 07-20-2024 End: 51-48-6234Tnewwpgvv Result EncounterGeneric External Data ProviderNOMS External Department UnsolicitedStart: 07-20-2024 End: 81-32-4897Nikpzjzqa Result EncounterGeneric External Data ProviderNOMS External Department UnsolicitedStart: 07-15-2024 End: 16-07-4441Cncssf Thomas Ruggiero MD Work Phone: noms CWM FMStart: 07-15-2024 End: 35-01-7921Tfdtpu flowsAracely Ruggiero MD Work Phone: noms CWM FMStart: 07-15-2024 End: 13-82-8465Pxyobne encounter procedureTulio Ruggiero MD Work Phone: [facility] Work Phone: Start: 07-15-2024 End: 97-28-2135Cohqscyt preventive med est patient 65yrs& olderTulio Ruggiero MD Work Phone: noms CWM FMComment on above:Annual physical exam (Primary Dx); Encounter for preoperative assessment; Type 2 diabetes mellitus with hyperglycemia, without long-term current use of insulin ([facility]); Arthritis, gouty; Polyneuropathy due to type 2 diabetes mellitus ([facility]); Class 2 severe obesity due to excess calories with serious comorbidity and body mass index (BMI) of37.0 to 37.9 in adult ([facility]); Dyslipidemia ([facility])Start: 07-15-2024 End: 17-81-8067Ysfvnckhvrzt Sal Ruggiero MD Work Phone: n[facility] HealthcareStart: 07-15-2024 End: 79-75-0108lvbqdrvoknZBZG NADERERNot AvailableStart: 05-27-2024 End: 12-35-3047knwbfgkmmeHROITQEW E PERRYFacility:EU [place]vueStart: 05-27-2024 End: 09-68-2942Blrprgu encounter procedureJENNIFER E DAVID [facility] start: 04-08-2024 End: 82-56-3882NxujofSyri Naderer MD Work Phone: [facility] CWM FMComment on above:Polyneuropathy due to type 2 diabetes mellitus ([facility])Start: 04-06-2024 End: 49-87-7873WmvaglAncl Naderer MD Work Phone: noms CWM FMComment on above:Male hypogonadismStart: 11-04-2023 End: 68-05-2115Ugwjgss encounter procedureJENNIFER E DAVID [facility] start: 92-96-2767Itfthei encounter Santino Ruggiero MD Work Phone: noms HealthcareStart: 06-03-2023 End: 99-21-5948Nrxztfi encounter procedureJENNIFER E DAVID [facility] start: 12-05-2022 End: 71-15-4087ccixxlxigoPB KIM E KNIGHT .Facility:N3Gvene: 12-03-2022 End: 54-81-6978ehyltsgwzfRQ FELISA BERRIOS .Facility:V5Bozou: 11-29-2022 End: 25-95-7907qrfepxiqroNEBJDTNUBFTS LAKSHMIPATHY .Facility:J7Xrhlf: 11-12-2022 End: 63-10-0896eltgyiucqbJG FELISA BERRIOS .Facility:H4Lvyqr: 11-05-2022 End: 26-06-6336tnhdihzzpuQH FELISA BERRIOS .Facility:K7Rcbeu: 10-28-2022 End: 50-03-3101pdodggrrcbQW FELISA BERRIOS .Facility:A5Ussrw: 10-21-2022 End: 49-18-4435kcafkpswekOT KIM E KNIGHT .Facility:C0Bqbmn: 66-03-7693Siuyhtezd for preprocedural cardiovascular examinationPETER D Martin Memorial Hospitaltart: 13-19-0947Ecxdhnaiu for preprocedural laboratory examinationPETER D Martin Memorial Hospitaltart: 86-43-0688zfvatqrnztNW KIM E KNIGHT . Facility:Y2Jhcpc: 10-10-2022 End: 70-53-1279kloptgfglnUL KIM E KNIGHT .Facility:J7Vdnbt: 10-10-2022 End: 54-80-9869Arxnwhkkq for preprocedural cardiovascular examinationDR FELISA BERRIOS .Facility:G0Sqjiy: 09-24-2022 End: 48-90-1638glrjsanpcyAW FELISA BERRIOS .Facility:H6Fkfgc: 09-20-2022 End: 37-85-9829mwnfctcuzcSA KIM E KNIGHT .Facility:X6Zvgin: 09-10-2022 End: 92-05-0221smfcoemtrfNY KIM E KNIGHT .Facility:U8Reqfn: 08-26-2022 End: 95-63-3204fasdmphyveYO FELISA BERRIOS .Facility:B5Tvgjx: 08-06-2022 End: 53-36-7744lnpllyuvrqUAIMB D ST. [facility] CENTERFacility:T2Rymqj: 07-31-2022 End: 14-05-1380hufaasxlfbGXIWWQT [facility] Hospitaltart: 07-31-2022 End: 12-86-9282ljfcaboxyvQC NATHALY BOONE .Facility:G8Qflml: 07-25-2022 End: 35-82-7839ewanlqmplhCFTP JOHNSON .Facility:U7Zykuz: 07-24-2022 End: 59-22-1790zaimvulelyAXJRH D [facility] Hospital Centercility:Q9Rtnmg: 07-23-2022 End: 21-08-4707ffwutgrplfGO FELISA BERRIOS .Facility:F4Uyrxh: 07-22-2022 End: 39-89-8322zscwqluporOY FELISA BERRIOS .Facility:N2Xhlbp: 68-67-4514qehlhgfaro DR NATHALY BOONE .Facility:U5Vqkzi: 06-28-2022 End: 73-55-8728vdgchiksciEV EHAB ELTAHAWYFacility:B4Oygty: 06-10-2022 End: 21-09-6392ibaufjvpjmCS FELISA BERRIOS .Facility:R9Ebcil: 05-27-2022 End: 87-72-5652turoxtlqrdZL RACHEAL Reynosocility:E1Xvbfv: 05-23-2022 End: 73-96-6129adrptkporkQrcwki Olexa Other [place] [employer] Other Start: 09-26-6716Wfjbbb outpatient visit 15 minutes Alejandra Clifford OrthopedicsStart: 05-03-2022 End: 35-38-7439ifsrtpgzsiGD FELISA BERRIOS .Facility:R6Lmdtv: 04-23-2022 End: 02-30-1727tivcpvhjofGP NATHALY BOONE .Facility:H9Cjpiq: 04-08-2022 End: 89-13-7252hwzeglrsppUC DAVID V WESTFacility:O3Xkpau: 04-04-2022 End: 50-62-3396istwkgtanoRAHR SOLIS .Facility:L2Fyque: 04-03-2022 End: 37-24-2108zyszqrlqwqQW RACHEAL V WESTFacility:Q6Jpxtd: 03-25-2022 End: 17-14-2121ayomlnempqJU RACHEAL V WESTFacility:A8Dmjhw: 03-19-2022 End: 23-10-0789oiozixdyvbJO RACHEAL V WESTFacility:O2Fcqor: 02-18-2022 End: 16-91-8611ximtwznchpYU RACHEAL V WESTFacility:I1Ypjxs: 56-17-0313puzmbxexeeTN FELISA Juarez BERRIOS .Facility:W4Pzutm: 02-14-2022 End: 66-35-3259mflwgqppfqFC FELISA Juarez BERRIOS .Facility:S4Hvhlp: 02-13-2022 End: 27-03-1075rhdnqrmhaqVL FELISA Juarez BERRIOS .Facility:K6Jxydm: 02-06-2022 End: 06-73-2177gfrjhzwtdfZZ FELISA Juarez BERRIOS .Facility:C9Wpvdz: 02-05-2022 End: 21-48-4234xmlenrtbvaCE FELISA Juarez BERRIOS .Facility:Y8Kezna: 01-30-2022 End: 97-22-7408oxchlqoiuaVE FELISA Juarez BERRIOS .Facility:S8Cakvi: 01-22-2022 End: 61-22-1907riaboeloivCO FELISA Juarez BERRIOS .Facility:W3Vxrhy: 01-21-2022 End: 27-66-8001vgrwkqmrbkOA FELISA Juarez BERRIOS .Facility:L6Bocde: 01-08-2022 End: 61-06-3488syicycoyirRN FELISA Ann BERRIOS .Facility:O7Ufufc: 08-07-2021 End: 68-51-7384dopxudhjenSngfnq Olexa Other [facility] [employer] Other Start: 40-16-7785Ocyapa outpatient visit 15 minutes Alejandra OlexaFPG [facility] BellevueStart: 46-36-7779Cjsmsw outpatient visit 15 minutesDavid HykesFPG Gastroenterology Procedures DateProcedureProcedure DetailPerforming ClinicianStart: 77-88-3700SX KNEE LEFT (3 VIEWS)Generic External Data ProviderStart: 33-99-7626Frmqddplsc examination knee 3 viewsDaniele Valencia DO Work Phone: Start: 54-66-2818YYB MICROALB CREAT RATIO RANDOMTulio Ruggiero MD Work Phone: Start: 74-14-6211GPHK PSA, DIAGNOSTICGeneric External Data ProviderStart: 32-66-3252Sgxtkbeezt examination knee 1/2 viewsGeneric External Data ProviderStart: 31-84-7803Xesdnejege examination knee 1/2 views Generic External Data ProviderStart: 90-79-2645XUK BASIC METABOLIC PANELGeneric External Data ProviderStart: 12-66-8924Pgynypgecz exam knee complete 4/more viewsGeneric External Data ProviderStart: 72-26-9291UEN CBC WITH AUTO DIFF Generic External Data ProviderStart: 24-02-7409Mpabuzah screenGeneric Provider Start: 36-23-4776UYF TYPE AND SCREENGeneric External Data ProviderStart: 23-05-5886Tnfjsgjo screenGeneric ProviderStart: 67-74-4770KHF TYPE AND SCREEN Generic External Data ProviderStart: 05-96-4496LFY UA (CLEAN/CATCH) PHYSICAL DESIGN ENGINEER/MICRO IF IND.Generic External Data ProviderStart: 34-74-2083GZV CBC WITH AUTO DIFF Generic External Data ProviderStart: 24-72-0222ZTA screeningDR RACHEAL Monk on above:Performed By: #### PSAD #### [facility] [address] [place] [address] Dr. Juliet WilkesStart: 14-33-6899MM guided biopsyJENNIFER DAVID Comment on above:LIVER. NO SEDATION.Start: 07-15-2016 ColonoscopyTulio Ruggiero MD Work Phone: Arthroscopy of kneeJENNIFER DAVID Bilateral cataracts (disorder)ABIODUN HERNANDEZ H/O: vasectomyJENNIFER DAVID Titanium (substance)ABIODUN DAVID Comment on above:ToeTonsillectomyJENNIFER DAVID Plan of Treatment DateCare ActivityDetailAuthorStart: 59-78-8769Xtcpiyzdmta Syncytial Virus (RSV) or age 60 yrs+ (1 - 1-dose 75+ series)Respiratory Syncytial Virus (RSV) or age 60 yrs+ (1 - 1-dose 75+ series)[facility]Start: 64-85-9866Hakteyxnu for malignant neoplasm of colonNOTN HealthcareStart: 04-50-6087Xfmcf screening for proteinDiabetes: Urine Protein ScreeningNOTN HealthcareStart: 08-16-2025 End: 48-44-1268Gjgcfuc encounter exdcuyzth02/03/2026 9:00 AM EST Office Visit [facility] [address] [place] [address] Tulio Ruggiero MD [address] [place] [phone] [facility] FMStart: 03-63-2668Bububtulb vaccinationInfluenza Vaccine (#1)[facility] HealthcareStart: 57-16-5349Akgsytsm screeningDiabetes: Retinopathy Screening [facility] HealthcareStart: 38-10-0653Dhtutqwdp vaccinationFlu vaccine (#1)[facility]anyStart: 43-56-3756Ktdlx screening for proteinDiabetes: Urine Protein ScreeningLafayette Regional Health CenterStart: 01-12-2025 End: 20-30-0813Ortylnglhw A1c/Hemoglobin.total in BloodHemoglobin A1c Lab Routine Type 2 diabetes mellitus with hyperglycemia, without long-term current use of insulin (HCC) Expected: 01/12/2025 (Approximate), Expires: 01/12/2026NOTN HealthcareComment on above:Expected: 01/12/2025 (Approximate), Expires: 01/12/2026Start: 01-12-2025 End: 52-31-1990Jcmtjldnzwnv/Creatinine panel in random UrineMicroalbumin / creatinine, urine ratio Lab Routine Type 2 diabetes mellitus with hyperglycemia, without long-term current use of insulin (HCC) Expected: 01/12/2025 (Approximate), Expires: 01/12/2026[facility] Work Phone: Comment on above:Expected: 01/12/2025 (Approximate), Expires: 01/12/2026Start: 01-12-2025 End: 98-25-9145Jlbykvg encounter procedureNOINTEGRIS GR[facility] FMComment on above:Arrived Start: 10-19-2024 End: 88-30-7505Vwgjrho antibody IgGRubeola antibody IgG Lab Routine Annual physical exam Expected: 10/19/2024 (Approximate), Expires: 10/19/2025[facility] Work Phone: Comment on above:Expected: 10/19/2024 (Approximate), Expires: 10/19/2025Start: 10-13-2024 End: 18-53-4853Maqlsqx encounter qapmofovd89/02/2025 1:15 PM EDT Office Visit [facility] [address] [place] [phone] Tulio Ruggiero MD [address] [place] [address] [facility]CEN[facility] FMComment on above:ArrivedStart: 02-28-4622WNKQN-19 Vaccine ( season)COVID-19 Vaccine ( season)[facility]Start: 08-05-2024 End: 13-53-7124Itiso metabolic 1998 panel - Serum or PlasmaBasic metabolic panel Lab Routine Encounter for long-term current use of medication Expected: 2024 (Approximate), Expires: 08/05/2025NOTN HealthcareComment on above:Expected: 08/05/2024 (Approximate), Expires: 08/05/2025Start: 08-05-2024 End: 96-16-5684NMN W Auto Differential panel - BloodCBC and differential Lab Routine Encounter for long-term current use of medication Expected: 08/05/2024 (Approximate), Expires: 08/05/2025NOMS HealthcareComment on above:Expected: 08/05/2024 (Approximate), Expires: 08/05/2025Start: 08-05-2024 End: 32-94-9723Mqlcnjzpuu A1c/Hemoglobin.total in BloodHemoglobin A1c Lab Routine Type 2 diabetes mellitus with hyperglycemia, without long-term current use of insulin ([facility]) Expected: 08/05/2024 (Approximate), Expires: 08/05/2025 [facility] Work Phone: Comment on above:Expected: 08/05/2024 (Approximate), Expires: 08/05/2025Start: 08-05-2024 End: 32-37-2679Vnnugqt function 2000 panel - Serum or PlasmaHepatic function panel Lab Routine Encounter for long-term current use of medication Expected: 08/05/2024 (Approximate), Expires: 08/05/2025[facility] HealthcareComment on above: Expected: 08/05/2024 (Approximate), Expires: 08/05/2025Start: 08-05-2024 End: 74-15-0826Fzfdx 1996 panel - Serum or PlasmaLipid panel Lab Routine Dyslipidemia ([facility]) Expected: 08/05/2024 (Approximate), Expires: 08/05/2025 [facility] HealthcareComment on above:Expected: 08/05/2024 (Approximate), Expires: 08/05/2025Start: 08-05-2024 End: 62-07-6709Hftudxfh specific Ag [Mass/volume] in Serum or PlasmaPSA Lab Routine Screening PSA (prostate specific antigen) Expected: 08/05/2024 (Approximate), Expires: 08/05/2025[facility] HealthcareComment on above:Expected: 08/05/2024 (Approximate), Expires: 08/05/2025Start: 08-05-2024 End: 25-00-8566Pzkmyzpznax [Units/volume] in Serum or PlasmaTSH Lab Routine Class 2 severe obesity due to excess calories with serious comorbidity and body mass index (BMI) of 37.0 to 37.9 in adult ([facility]) Expected: 08/05/2024 (Approximate), Expires: 08/05/2025NOTN HealthcareComment on above:Expected: 08/05/2024 (Approximate), Expires: 08/05/2025Start: 19-42-2312Owijxxihog A1c measurementDiabetes: Hemoglobin Y8YGSMR HealthcareStart: 07-15-2024 End: 68-77-6602Kykqw metabolic 1998 panel - Serum or PlasmaBasic metabolic panel Lab Routine Annual physical exam Expected: 07/15/2024 (Approximate), Expires: 07/15/2025[facility] HealthcareComment on above:Expected: 07/15/2024 (Approximate), Expires: 07/15/2025Start: 07-15-2024 End: 67-67-6677WBU W Auto Differential panel - BloodCBC and differential Lab Routine Annual physical exam Expected: 07/15/2024 (Approximate), Expires: 0 07/15/2025[facility] HealthcareComment on above:Expected: 07/15/2024 (Approximate), Expires: 07/15/2025Start: 07-15-2024 End: 52-29-3783Aqqmcodsqw A1c/Hemoglobin.total in BloodHemoglobin A1c Lab Routine Annual physical exam Expected: 07/15/2024 (Approximate), Expires: 07/15/2025[facility] Healthcare Work Phone: Comment on above:Expected: 07/15/2024 (Approximate), Expires: 07/15/2025Start: 07-15-2024 End: 89-33-0286Rmmnflq function 2000 panel - Serum or PlasmaHepatic function panel Lab Routine Annual physical exam Expected: 07/15/2024 (Approximate), Expires: 07/15/2025[facility] HealthcareComment on above:Expected: 07/15/2024 (Approximate), Expires: 07/15/2025Start: 07-15-2024 End: 20-67-7141Hweho 1996 panel - Serum or PlasmaLipid panel Lab Routine Annual physical exam Expected: 07/15/2024 (Approximate), Expires: 07/15/2025[facility] HealthcareComment on above:Expected: 07/15/2024 (Approximate), Expires: 07/15/2025Start: 07-15-2024 End: 15-09-3626Unpvchzi specific Ag [Mass/volume] in Serum or PlasmaPSA Lab Routine Annual physical exam Expected: 07/15/2024 (Approximate), Expires: 07/15/2025NOTN HealthcareComment on above:Expected: 07/15/2024 (Approximate), Expires: 07/15/2025Start: 07-15-2024 End: 02-50-1385Udtmzcdafua [Units/volume] in Serum or PlasmaTSH Lab Routine Annual physical exam Expected: 07/15/2024 (Approximate), Expires: 07/15/2025NOTN HealthcareComment on above:Expected: 07/15/2024 (Approximate), Expires: 07/15/2025Start: 07-15-2024 End: 94-20-2401Bxyaztg encounter procedureNOMS CWM FMComment on above:Arrived Start: 06-99-5823Wtlkcuqwn vaccinationInfluenza Vaccine (#1)[facility] Start: 88-56-7760Lfxwdzbmvo A1c measurementDiabetes: Hemoglobin U6QOABP HealthcareStart: 38-40-9953Yixibxuojjnd 50+ years Vaccine (2 of 2 - PCV) Pneumococcal 50+ years Vaccine (2 of 2 - PCV)[facility]Start: 59-95-0398Zzuiokgeskyp Vaccine: 65+ Years (2 of 2 - PCV)Pneumococcal Vaccine: 65+ Years (2 of 2 - PCV)[facility] HealthcareStart: 59-13-4704Jpudmkai vaccine (1 of 2)Shingles vaccine (1 of 2)[facility]Start: 83-23-8821Riqzamjkn for malignant neoplasm of colonLewisgale Hospital AlleghanyStart: 32-48-5257Yswmh panelLipidsLewisgale Hospital AlleghanyStart: 18-47-7800VNcW/Tdap/Td vaccine (1 - Tdap)DTaP/Tdap/Td vaccine (1 - Tdap)[facility]anyStart: 1975 Urine screening for proteinDiabetes: Urine Protein ScreeningLafayette [facility] Start: 88-91-1963Lhznrovkh C screeningHepatitis C screenLewisgale Hospital Alleghany Start: 01-78-9051Nkeplunsbf ScreenDepression [facility] Start: 22-25-9953Azbhcarkq for malignant neoplasm of colonRIVERTON HOSPITAL Healthcare Immunizations Immunization DateImmunizationNotesCare IkikkqeoZukwjirw18-57-1985aaiwbxwgv virus vaccine, unspecified formulationJENNIFER DAVID [facility]10-08-2023SARS-CoV-2 mRNA (tozinameran 5y-11y) vaccineJENNIFER DAVID [phone]-DqqliBarberton Citizens Hospital on above: Result Comment: covid 19 mRNA (cvs)36-58-5832ihkhtelzf virus vaccine, unspecified formulationTulio Ruggiero MD Work Phone: NOFreeman Neosho HospitalXagtuknfov09-84-4676etxspongd virus vaccine, unspecified formulationJENNIFER DAVID [facility]09-10-2022SARS-CoV-2 (COVID-19) mRNAMUL.ORD![id number] DAVID [facility]04-12-2022SARS-CoV-2 mRNA (xxvqknzakhx-bacz-laczkbn) vaccineJENNIFER DAVID [facility]11-14-2021pneumococcal polysaccharide vaccine, 23 valentJENNIFER DAVID [facility]10-24-2021SARS-CoV-2 (COVID-19) mRNA BNT-162b2 vaxJENNIFER DAVID [facility] on above:Result Comment: 2022-05-29: BRK3060-09-5035wjozsxrzh virus vaccine, unspecified formulationJENNIFER DAVID [facility]03-08-2021SARS-CoV-2 (COVID-19) mRNA BNT-162b2 vaxJENNIFER DAVID General Surgery Oudvdkjv05-45-7522etwjzdmxd virus vaccine, unspecified formulationJENNIFER DAVID General Surgery Kklcamfe66-24-2877ckovehfpa virus vaccine, unspecified formulationJENNIFER DAVID [facility]10-08-2018influenza virus vaccine, unspecified formulationJENNIFER DAVID [facility]09-11-2018influenza virus vaccine, unspecified formulationJENNIFER DAVID [facility]10-19-2013influenza virus vaccine, unspecified formulationJENNIFER DAVID [facility] Payers DatePayer CategoryPayerPolicy [id number] [id number] 2023Medicare2023 [id number]3.693.2.7.3.604548.315 [id number] [id number] 2.16.840.1.917403.19 [id number] [id number] 2.16.840.1.801959.3.57[id number] 2.16.840.1.129249.3.579.2.26508-30-6429Ghnyqyc0194322 2.16.840.1.787106.3.579.2.21233-84-3165Eescdrr0759434 2.16.840.1.299250.3.579.2.74665-00-1808Haupdpq8550365 2.16.840.1.743448.3.579.2.60914-78-1474Eezkemn2723291 2.16.840.1.643759.3.579.2.25904-46-1993Hdnwqch7639989 2.16.840.1.083030.3.579.2.72063-28-9189Lnmuyfv3935437 2.16.840.1.253698.3.579.2.86231-14-0704Wryeczj0244902 2.16.840.1.026441.3.579.2.82130-27-4074Obqhkif1446234 2.16.840.1.074471.3.579.2.29750-47-9566Raqlgny8440867 2.16.840.1.026407.3.579.2.29406-76-3846Tlcxmkf5621439 2.16.840.1.735830.3.579.2.48923-06-9582Bxcjdim6559651 2.16.840.1.148763.3.579.2.77725-47-8547Lqrmzdu9435660 2.16.840.1.973920.3.579.2.68603-78-6581Foqmzcz7315543 2.16.840.1.369573.3.579.2.35263-49-3019Xqijpom0099285 2.16.840.1.363089.3.579.2.81756-23-4897Qrbqseq9657101 2.16.840.1.566893.3.579.2.69565-50-8788Hwvgstk8639844 2.16.840.1.647075.3.579.2.19363-59-7300Penwgat1451393 2.16.840.1.528899.3.579.2.53551-26-4054Xbowhus6350095 2.16.840.1.925489.3.579.2.44085-82-0423Wdkzsif3958695 2.16840.1.295341.3.579.2.65146-51-3369Nytcqgr3454936 2.16.840.1.908270.3.579.2.05490-91-4235Grtkbiu6501274 2.16.840.1.492812.3.579.2.05733-24-4911Yilinyo0231388 2.16.840.1.308804.3.579.2.33061-10-2690Rdfjlot6817235 2.16.840.1.512062.3.579.2.17062-77-7178Hkundxb8151523 2.16.840.1.068995.3.579.2.66237-98-9080Zbnaccu0564391 2.16.840.1.578213.3.579.2.53452-21-1413Mmxsnne7791041 2.16.840.1.947523.3.579.2.31252-18-4719Xalzldq9221774 2.16.840.1.312052.3.579.2.17128-12-9490Jakencx3343383 2.16.840.1.999724.3.579.2.55375-43-2198Eremyqn6685922 2.16.840.1.693491.3.579.2.86314-50-0625Qumrcqe4069303 2.16.840.1.973862.3.579.2.10831-42-2115Emtpgdb3892627 2.16.840.1.270913.3.579.2.39388-06-8582Diwlnpk0028262 2.16.840.1.693387.3.579.2.37394-54-8907Tkomxdq9899482 2.16840.1.737414.3.579.2.09189-11-3624Vobuldj0237661 2.16.840.1.051956.3.579.2.95542-14-4534Bajqdns7574698 2.16.840.1.729258.3.579.2.84174-78-6747Vuuwqkf0234773 2.16.840.1.125376.3.579.2.11134-81-8902Mcelddn8777498 2.16840.1.405179.3.579.2.97385-17-0496Lbudmoz6231693 2.16.840.1.374150.3.579.2.40140-37-0399Eokfqkm819088039 2.16.840.1.188404.3.579.2.74802-81-8889Atjtuyd138695281 2.16.840.1.813588.3.579.2.12306-44-7392Gvcuszb45466237 2.16.840.1.325056.3.579.2.682497-83-3904Hsxhdfz7199909 2.16.840.1.058314.3.579.2.369470-53-7331Tnhnmmc4375559 2.16.840.1.616098.3.579.2.400141-19-5544Crwbzfh67657969 2.16.840.1.936523.3.579.2.35537-59-1558Ijixluc07004301 2.16.840.1.244005.3.579.2.98050-78-1212Qbzsxxq91062711 2.16.840.1.213961.3.579.2.727 Social History DateTypeDetailFacilityStart: 01-12-2024 End: 88-17-5946Fye Assigned At BirthC[facility] Hospitaltart: 03-10-2023 End: 43-86-3910Qfwxfxn smoking statusNever smoked tobacco (finding)[facility] centero smoking statusNever [facility] Centertart: 03-10-2023 Tobacco use and exposureSmokeless tobacco non-userNOMS HealthcareStart: 01-12-2024 End: 99-92-1429Bzlcijo of Social functionNOMS HealthcareStart: 28-06-1498Xuf assigned at birthNot on fileRIVERTON HOSPITAL HealthcareTobacco smoking status NHISTobacco smoking consumption unknownLewisgale Hospital AlleghanyStart: 46-56-6500ArmRpyw (finding)[facility] Functional Status RnneRrrpxrywoqQnvsvjItblhqtk04-92-9095Ltkgashthq StatusN/A[facility]04-23-2024Functional StatusN/A[facility]11-21-2023Functional StatusN/A [facility] Clinical Notes 04-12-2021 to 01-12-2025 Note Date & BberZuwqMdyvnegy63-48-9876 History of Present illness Narrative* Tulio Ruggiero MD - 01/12/2025 9:44 AM EDTAssociated Problem(s): Type 2 diabetes mellitus with hyperglycemia, without long-term current use of insulin ([facility]) Reports BS controlled and due for A1C. [...] (BMI) of 37.0 to 37.9 in adult ([facility]) Weight loss indicated. * Tulio Ruggiero [...] with medication. No congestion or rhinorrhea. No NADRADE or sinus pressure. Ears not plugged or [...] index (BMI) of37.0 to 37.9 in adult ([facility]) Weight loss indicated. Type 2 diabetes mellitus with hyperglycemia, without long-term current use of insulin ([facility]) - Primary Reports BS controlled and due for A1C. Stick to ADA diet and limit carbs. Relevant Orders Microalbumin / creatinine, urine ratio Hemoglobin A1c Seasonal allergic rhinitis due to pollen Symptoms controlled with medication and continue. Primary insomnia Sleeping well with medication and continue. documented in this encounterLafayette Regional Health CenterDlzcqyjzbu29-32-3723 History of Present illness Narrative* Tulio Ruggiero MD - 10/13/2024 1:51 PM EDTAssociated Problem(s): Abscess of abdominal wall Recent abscess but improved after drainage. Use heat PRN. Treat with bactrim. Cover with neosporin. * Tulio Ruggiero MD - 10/13/2024 1:15 PM EDT Images [...] 800-160 MG per tablet documented in this encounterLafayette Regional Health CenterSezdfewqwc12-21-0514 NoteProcedure: AP view of the orbits. Clinical [...] Is Signed, Electronically Signed in Other Vendor System)[facility]01-02-2025 History of Present illness Narrative* Tulio Ruggiero MD - 07/15/2024 9:51 AM ESTAssociated Problem(s): Dyslipidemia (CMS/HCC) Due for labs. * Tulio Ruggiero MD - 07/15/2024 9:50 AM ESTAssociated Problem(s): Class 2 severe obesity due to excess calories with serious comorbidity and body mass index (BMI) of 37.0 to 37.9 in adult ([facility]) Weight down 9 pounds in past year. Continue exercise and diet changes. * Tulio Ruggiero MD - 07/15/2024 9:49 AM ESTAssociated Problem(s): Polyneuropathy due to type 2 diabetes mellitus ([facility]) Neuropathy stable and continue neurontin. * Tulio Ruggiero MD - 07/15/2024 9:48 AM ESTAssociated Problem(s): Type 2 diabetes mellitus with hyperglycemia, without long-term current use of insulin ([facility]) Reports BS controlled and due for A1C. [...] index (BMI) of37.0 to 37.9 in adult ([facility]) Weight down 9 pounds in past year. Continue exercise and diet changes. Type 2 diabetes mellitus with hyperglycemia, without long-term current use of insulin ([facility]) Reports BS controlled and due for A1C. Stick to ADA diet and limit carbs. Polyneuropathy due to type 2 diabetes mellitus ([facility]) Neuropathy stable and continue neurontin. Annual physical [...] palpitations. Recommend routine PAT. documented in this encounterLafayette Regional Health CenterCgfqbaeegh62-78-5393 Hospital Discharge instructions Patient Education 05/27/2024 09:56:36 Kidney Stones, Jthg-oj-Fkli Kidney Stones Kidney stones are rock-like masses [...] Follow these instructions at home: Medicines Take kbme-abg-sxuuwee and prescription medicines only as told by [...] provider. Document Revised: 02/21/2023 Document Reviewed: 02/21/2023 [employer] Patient Education 2023 [employer]. Follow Up Care 11/04/2023 09:32:44 With:ABIODUN HERNANDEZ PA-C, URL Address: When:1 year [facility] 11-14-2024 NotePatient Education Urology Kidney Stones Kidney [...] these instructions at home: Medicines ??? Take imbs-wij-ymezgyt and prescription medicines only as told by [...] provider. Document Revised: 02/21/2023 Document Reviewed: 02/21/2023 [employer] Patient Education ? 2023 [employer].[facility] 11-04-2023 Hospital Discharge instructions Patient [...] Follow these instructions at home: Medicines Take ervq-wmt-gowurhv and prescription medicines only as told by [...] provider. Document Revised: 09/26/2021 Document Reviewed: 09/26/2021 [employer] Patient Education 2022 [employer]. Follow Up Care 06/03/2023 10:28:55 With:ABIODUN HERNANDEZ PA-C, URL Address: [facility] [address] [facility] [place] [address] [phone] When: Unknown [facility] 11-21-2023 Hospital Discharge instructions Patient Education 06/03/2023 [...] treatment? Where to find more information [employer] [employer]: www.cancer.org [employer] [employer]: www.auanet.org Contact a health care [...] provider. Document Revised: 12/24/2021 Document Reviewed: 12/24/2021 [employer] Patient Education 2022 [employer]. Follow Up Care 05/29/2022 11:47:27 With:DAVID IVAN, ABIODUN Juarez, URL Address: [address] [place] [address] [phone] When: Unknown Comments:6 mos w/ PSA [facility] 05-23-2023 NotePROCEDURE: XR FOOT LT MIN 3 [...] Electronically authenticated by: ELIN MCCARTNEY Date: 2022-12-03 09:57[facility]05-02-2023 NotePROCEDURE: XR FOOT LT MIN 3 VIEWS [...] Electronically authenticated by: ZAFAR FERRER Date: 2022-11-12 13:59[facility]04-11-2023 NotePROCEDURE: XR FOOT LT MIN 3 VIEWS [...] authenticated by: ELIN MCCARTNEY Date: 2022-10-22 07:48[facility] HospitalXfvlkglb77-91-0690 NotePROCEDURE: XR FOOT LT 2V HISTORY: Pain COMPARISON: XR foot left 10/21/2022 FINDINGS: BONES:Multiple intraoperative spot fluoroscopic images demonstrate mechanical fusion of the first metatarsophalangeal joint and resection of head of first proximal phalanx. IMPRESSION: 1. Surgical changes of left first toe as detailed above. Electronically authenticated by: ELIN MCCARTNEY Date: 2022-10-22 07:46[facility]01-18-2023 NoteCurrently stableUnMercy Health West Hospital01-18-2023 NoteHypertension is well controlled 114/64 Continue lisinopril 5 mg Recent CR elevated 1.59- his cr typically has been 1.2-1.4 - He has been on antibiotics for Lt foot infection- DFU with wound care. [facility]01-18-2023 NoteLipid abnormalities are currently well controlled with lipitor 20 mg- LDL currently 58.6 on labs 07/26/2022 Liver function 04/2022 were normalUnMercy Health West Hospital01-18-2023 NoteUTP CARDIOLOGY PROGRESS NOTE HPI: Carlos Caraballo [...] stable RTC 1 year or earlier if neededUnMercy Health West Hospital01-18-2023 NotePatient here for 6 mo follow up history of PE and hyperlipidemia. Had labs in Apr and echo in Jun 2022. Patient denies chest pain, SOB, and increase in LE edema. Doing very well from cardiac standpoint. Was seeing Dr. Steele for his varicose veins. Review of Systems Cardiovascular: Positive for leg swelling. All other systems reviewed and are negative.[facility] 07-31-2022 NoteCONSULTATION PROCEDURE DATE: 07/31/2022 INDICATIONS: This [...] in the clinic in three months' time.[facility] [id number] Note CONSULTATION CONSULTATION DATE: 07/25/2022 HISTORY OF PRESENT ILLNESS: This is a 66-year-old gentleman who presents to the Pain Clinic today with increased lower back pain. The patient does have chronic bilateral knee pain, but he states those are doing quite well. He did receive a left knee steroid injection in April. The patient just recently returned from a [place] vacation, where he visited multiple [employer] mayes and had a lot of increased [...] plan and will be contacted upon approval.[facility] HospitalVyfhriok58-92-1773 NotePROCEDURE: XR FOOT LT MIN 3 VIEWS [...] authenticated by: ELIN MCCARTNEY Date: 2022-07-24 10:21[facility] HospitalHeonwjtf31-21-6882 NotePROCEDURE: XR KNEE LT 4V or > HISTORY: Pain in left knee ; chronic left knee pain COMPARISON: XR knee bilateral 05/31/2021 FINDINGS: BONES:Marked narrowing of the medial joint space with suspected tkpa-cr-rymb articulation. Moderate-marked narrowing of the lateral compartment. Mild narrowing of anterior compartment. Small periarticular osteophytes involving the margins of all 3 compartments. No fracture or dislocation. SOFT TISSUES:No visible soft tissue swelling. EFFUSION:Small joint effusion. OTHER: Negative. IMPRESSION: 1. Marked degenerative joint disease. Stable to minimally progressed. Electronically authenticated by: ELIN MCCARTNEY Date: 2022-06-10 19:35[facility]11-10-2022 Evaluation note* Encounter Date Diagnosis Assessment Notes [...] May,ain in left knee (ICD-10 - M25.562) GMG33 Other 10-11-2022 NoteCONSULTATION CONSULTATION DATE: 04/23/2022 CHIEF [...] the time being. CC: Felisa Berrios M.D.[facility] [id number] NoteCONSULTATION CONSULTATION DATE: 04/04/2022 HISTORY OF PRESENT [...] indicated. Patient agreed with plan of care.[facility] HospitalBogjxmql25-93-0562 Note CONSULTATION CONSULTATION DATE: 02/14/2022 HISTORY OF [...] time unless otherwise indicated. Patient acknowledges understanding.[facility] HospitalRfeszrce91-54-9088 NoteCONSULTATION PROCEDURE DATE: 02/14/2022 PREOPERATIVE DIAGNOSIS: Bilateral [...] will be followed up in the office.[facility] HospitalWbmoaiue88-90-2722 Evaluation note* Encounter Date Diagnosis Assessment Notes [...] Jul,ain in left knee (ICD-10 - M25.562) GMG33 Other 09-30-2021 Evaluation note* Encounter Date Diagnosis Assessment Notes Treatment Notes Treatment Clinical Notes Mar, Liver hemangioma (ICD-10 - D18.0 3) Mar,NASH (nonalcoholic steatohepatitis) (ICD-10 - K75.81) GMG33 Other Evaluation + Plan note Future Appointments Appointment Date:11/04/2023 08:30:00 AM Scheduled Provider:ABIODUN HERNANDEZ PA-C Location:[facility] Appointment Type:URO Office Visit Diagnostic Tests Pending * PSA Total 06/03/23 [facility] evaluation + Plan note Future Appointments Appointment Date:05/25/2024 08:40:00 AM Scheduled Provider:ABIODUN HERNANDEZ PA-C Location:[facility] Appointment Type:URO Office Visit [facility] evaluation note* Diagnosis Polyneuropathy due to type 2 diabetes mellitus ([facility]) documented in this encounter [facility] HealthcareEvaluation note* Diagnosis Male hypogonadism Other testicular hypofunction documented in this encounter [facility] HealthcareEvaluation note* Diagnosis Annual physical exam- Primary Routine general medical examination at a health care facility Type 2 diabetes mellitus with hyperglycemia, without long-term current use of insulin (CMS/[facility]) Type 2 diabetes mellitus with hyperglycemia, without [...] hyperglycemia, without long-term current use of insulin ([facility]) Arthritis, gouty Gouty arthropathy, unspecified Polyneuropathy [...] hyperglycemia, without long-term current use of insulin ([facility]) Type 2 diabetes mellitus with hyperglycemia, without long-term current use of insulin ([facility])- Primary Arthritis, gouty Gouty arthropathy, unspecified Seasonal allergic rhinitis due to pollen DDD (degenerative disc disease), lumbar Degeneration of lumbar or lumbosacral intervertebral disc Polyneuropathy due to type 2 diabetes mellitus ([facility]) Primary insomnia Persistent disorder of initiating or maintaining sleep Annual physical exam- Primary Routine general medical examination at a [facility] facility Encounter for preoperative assessment Type 2 diabetes mellitus with hyperglycemia, without long-term current use of insulin ([facility]) Arthritis, gouty Gouty arthropathy, unspecified Polyneuropathy due to type 2 diabetes mellitus ([facility]) Class 2 severe obesity due to excess calories with serious comorbidity and body mass index (BMI) of37.0 to 37.9 in adult ([facility]) Dyslipidemia ([facility]) Other and unspecified hyperlipidemia Type 2 diabetes mellitus with hyperglycemia, without long-term current use of insulin ([facility])- Primary Dyslipidemia ([facility]) Other and unspecified hyperlipidemia Class 2 severe obesity due to excess calories with serious comorbidity and body mass index (BMI) of37.0 to 37.9 in adult ([facility]) Encounter for long-term current use of medication Screening PSA (prostate specific antigen) Special screening for malignant neoplasm of prostate documented in this encounter [facility] HealthcareEvaluation note* Diagnosis Annual physical exam- Primary Routine general medical examination at a [facility] facility Type 2 diabetes mellitus with hyperglycemia, without long-term current use of insulin ([facility]) Type 2 diabetes mellitus with hyperglycemia, without long-term current use of insulin ([facility])- Primary Arthritis, gouty Gouty arthropathy, unspecified Seasonal allergic rhinitis due to pollen DDD (degenerative disc disease), lumbar Degeneration of lumbar or lumbosacral intervertebral disc Polyneuropathy due to type 2 diabetes mellitus ([facility]) Primary insomnia Persistent disorder of initiating or maintaining sleep Annual physical exam- Primary Routine general medical examination at a [facility] care facility Encounter for preoperative assessment Type 2 diabetes mellitus with hyperglycemia, without long-term current use of insulin ([facility]) Arthritis, gouty Gouty arthropathy, unspecified Polyneuropathy due to type 2 diabetes mellitus ([facility]) Class 2 severe obesity due to excess calories with serious comorbidity and body mass index (BMI) of37.0 to 37.9 in adult ([facility]) Dyslipidemia ([facility]) Other and unspecified hyperlipidemia Morbid obesity ([facility]) Morbid obesity Polyneuropathy due to type 2 diabetes mellitus ([facility]) Type 2 diabetes mellitus with hyperglycemia, without long-term current use of insulin ([facility]) documented in this encounter [facility] HealthcareEvaluation note* Diagnosis Annual physical exam- Primary Routine general medical examination at a health care facility Type 2 diabetes mellitus with hyperglycemia, without long-term current use of insulin ([facility]) Type 2 diabetes mellitus with hyperglycemia, without long-term current use of insulin ([facility])- Primary Arthritis, gouty Gouty arthropathy, unspecified Seasonal allergic rhinitis due to pollen DDD (degenerative disc disease), lumbar Degeneration of lumbar or lumbosacral intervertebral disc Polyneuropathy due to type 2 diabetes mellitus ([facility]) Primary insomnia Persistent disorder of initiating or maintaining sleep Annual physical exam- Primary Routine general medical examination at a health care facility Encounter for preoperative assessment Type 2 diabetes mellitus with hyperglycemia, without long-term current use of insulin ([facility]) Arthritis, gouty Gouty arthropathy, unspecified Polyneuropathy due to type 2 diabetes mellitus ([facility]) Class 2 severe obesity due to excess calories with serious comorbidity and body mass index (BMI) of37.0 to 37.9 in adult ([facility]) Dyslipidemia ([facility]) Other and unspecified hyperlipidemia Abscess of abdominal wall- Primary Cellulitis and abscess of trunk documented in this encounter [facility] HealthcareEvaluation note* Diagnosis Annual physical exam- Primary Routine general medical examination at a health care facility Type 2 diabetes mellitus with hyperglycemia, without long-term current use of insulin ([facility]) Type 2 diabetes mellitus with hyperglycemia, without long-term current use of insulin ([facility])- Primary Arthritis, gouty Gouty arthropathy, unspecified Seasonal allergic rhinitis due to pollen DDD (degenerative disc disease), lumbar Degeneration of lumbar or lumbosacral intervertebral disc Polyneuropathy due to type 2 diabetes mellitus ([facility]) Primary insomnia Persistent disorder of initiating or maintaining sleep Annual physical exam- Primary Routine general medical examination at a health care facility Encounter for preoperative assessment Type 2 diabetes mellitus with hyperglycemia, without long-term current use of insulin ([facility]) Arthritis, gouty Gouty arthropathy, unspecified Polyneuropathy due to type 2 diabetes mellitus ([facility]/H[facility]) Class 2 severe obesity due to excess calories with serious comorbidity and body mass index (BMI) of37.0 to 37.9 in adult ([facility]) Dyslipidemia (CMS/HCC) Other and unspecified hyperlipidemia Abscess of abdominal wall- Primary Cellulitis and abscess of trunk Annual physical exam- Primary Routine general medical examination at a health care facility Morbid obesity ([facility]) Morbid obesity Polyneuropathy due to type 2 diabetes mellitus ([facility]) Type 2 diabetes mellitus with hyperglycemia, without long-term current use of insulin ([facility]) Arthritis, gouty Gouty arthropathy, unspecified [facility] Diagnosis Annual physical exam- Primary Routine general medical examination at a health care facility Type 2 diabetes mellitus with hyperglycemia, without long-term current use of insulin ([facility]) Type 2 diabetes mellitus with hyperglycemia, without long-term current use of insulin ([facility])- Primary Arthritis, gouty Gouty arthropathy, unspecified Seasonal allergic rhinitis due to pollen DDD (degenerative disc disease), lumbar Degeneration of lumbar or lumbosacral intervertebral disc Polyneuropathy due to type 2 diabetes mellitus ([facility]) Primary insomnia Persistent disorder of initiating or maintaining sleep Annual physical exam- Primary Routine general medical examination at a health care facility Encounter for preoperative assessment Type 2 diabetes mellitus with hyperglycemia, without long-term current use of insulin ([facility]) Arthritis, gouty Gouty arthropathy, unspecified Polyneuropathy due to type 2 diabetes mellitus ([facility]) Class 2 severe obesity due to excess calories with serious comorbidity and body mass index (BMI) of37.0 to 37.9 in adult ([facility]) Dyslipidemia ([facility]) Other and unspecified hyperlipidemia Abscess of abdominal wall- Primary Cellulitis and abscess of trunk Male hypogonadism Other testicular hypofunction documented [facility]* Diagnosis Annual physical exam- Primary Routine general medical examination at a health care facility Type 2 diabetes mellitus with hyperglycemia, without long-term current use of insulin ([facility]) Type 2 diabetes mellitus with hyperglycemia, without long-term current use of insulin ([facility])- Primary Arthritis, gouty Gouty arthropathy, unspecified Seasonal [...] index (BMI) of37.0 to 37.9 in adult ([facility]) Dyslipidemia (CMS/HCC) Other and unspecified hyperlipidemia Abscess of abdominal wall- Primary Cellulitis and abscess of trunk 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) documented in this encounter [facility]* Diagnosis Annual physical exam- [...] index (BMI) of37.0 to 37.9 in adult ([facility]) Dyslipidemia Other and unspecified hyperlipidemia Type [...] index (BMI) of37.0 to 37.9 in adult ([facility]) Type 2 diabetes mellitus with diabetic chronic kidney disease (HCC) Chronic kidney disease, stage 3a ([facility]) documented in this encounter [facility]* Diagnosis Aftercare following left knee joint replacement surgery documented in this encounter [facility] note* Diagnosis Annual physical exam- Primary [...] hyperglycemia, without long-term current use of insulin ([facility]) Arthritis, gouty Gouty arthropathy, unspecified 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) Class 2 severe obesity due to excess calories with serious comorbidity and body mass index (BMI) of37.0 to 37.9 in adult ([facility] [place]) Dyslipidemia Other and unspecified hyperlipidemia Type 2 diabetes mellitus with hyperglycemia, without long-term current use of insulin ([facility])- Primary Arthritis, gouty Gouty arthropathy, unspecified Seasonal allergic rhinitis due to pollen Primary insomnia Persistent disorder of initiating or maintaining sleep Degeneration of intervertebral disc of lumbar region with discogenic back pain Class 2 severe obesity due to excess calories with serious comorbidity and body mass index (BMI) of37.0 to 37.9 in adult ([facility]) Type 2 diabetes mellitus with diabetic chronic kidney disease (HCC) Chronic kidney disease, stage 3a ([facility] [place]) 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) documented [facility] this [facility] Narrative - Reported* Type Description Date Medical History DM II Medical HistoryHTNMedical HistoryhyperlipidemiaMedical HistorygoutSurgical Historyknee surgerySurgical HistorytonsillectomySurgical Historyvasectomy Surgical Historysinus surgerySurgical Historyback injectionsHospitalization HistorySEE ABOVE SURGICAL HX GMG33 Other Hospital course Narrative No data available for this section [facility] progress note No data available for this section [facility] Summary Purpose Family History No Family [...] section and content) DATE CREATED AUTHOR 03/29/2021 [facility] DATE CREATED AUTHOR AUTHOR'S ORGANIZ ATION 08/06/2022 [facility] DATE CREATED AUTHOR AUTHOR'S ORGANIZ ATION 12/20/2022 [facility] DATE CREATED AUTHOR AUTHOR'S ORGANIZ ATION 07/28/2024 [facility] DATE CREATED AUTHOR AUTHOR'S ORGANIZ ATION 01/14/2025 [facility] DATE CREATED AUTHOR AUTHOR'S ORGANIZ ATION 02/04/2025 [facility] DATE CREATED AUTHOR AUTHOR'S ORGANIZ ATION 03/31/2025 [facility] REASON FOR VISIT (unrecogniz ed section and content) ReasonCommentsMed RefillReasonOnset DateCommentsMed Ejpjcg6904/06/2024eason GfyrpltyPnftao-to5oAzkachIqhvoahcDlehzh-pmFpmo on stomach/ poppedReasonOnset DateCommentsMed Vyrhzx7811/08/2024ReasonOnset DateCommentsMed Zrklhv1212/06/2024 Patient Care team informatio n (unrecognized section and content) Team MemberRelationshipSpecialtyStart DateEnd Date Tulio Ruggiero MD [address] [place] [address] PCP - Perla Nkyabambab40/1/23 Tulio Ruggiero MD [address] [place] [address] PCP - GeneralFamily Medicine01/12/24Team MemberRelationshipSpecialtyStart DateEnd Date Tulio Ruggiero MD [address] [place] [address] PCP - Perla Zsayvvblsz54/1/23 Tulio Ruggiero MD [address] [place] [address] PCP - [facility] Medicine01/12/24Team MemberRelationshipSpecialtyStart DateEnd Date Tulio Ruggiero MD [address] [place] [address] PCP - Perla Fbpxnrryds11/1/23 Tulio Ruggiero MD [address] [place] [address] PCP - [facility] Medicine01/12/24Team MemberRelationshipSpecialtyStart DateEnd Date Tulio Ruggiero MD [address] [place] [address] PCP - [facility]la Yezqkjabdi55/1/23 Tulio Ruggiero MD [address] [place] [address] PCP - Generalmily Medicine01/12/24Team MemberRelationshipSpecialtyStart DateEnd Date Tulio Ruggiero MD [address] [place] [address] PCP - [facility] Eqmthhhjzr68/1/23 Tulio Ruggiero MD [address] [place] [address] PCP - GeneralFamily Medicine01/12/24Team MemberRelationshipSpecialtyStart DateEnd Date Tulio Ruggiero MD [address] [place] [address] PCP - [facility]la Hgbngdmbht97/1/23 Tulio Ruggiero MD [address] [place] [address] PCP - Generalmi Medicine01/12/24Team MemberRelationshipSpecialtyStart DateEnd Date Tulio Ruggiero MD [address] [place] [address] PCP - [facility]la Tibxpdgtll82/1/23 Tulio Ruggiero MD [address] [place] [address] PCP - Generalmily Medicine01/12/24Team MemberRelationshipSpecialtyStart DateEnd Date Tulio Ruggiero MD [address] [place] [address] PCP - GeneralFamily Medicine01/12/24Team MemberRelationshipSpecialtyStart DateEnd Date Tulio Ruggiero MD [address] [place] [address] PCP - GeneralFamily Medicine01/12/24Team MemberRelationshipSpecialtyStart DateEnd Date Tulio Ruggiero MD [address] [place] [address] PCP - GeneralFamily Medicine01/12/24Team MemberRelationshipSpecialtyStart DateEnd Date Tulio Ruggiero MD [address] [place] [address] PCP - GeneralFamily Medicine01/12/24Team MemberRelationshipSpecialtyStart DateEnd Date Tulio Ruggiero MD [address] [place] [address] PCP - GeneralFamily Medicine01/12/24Team MemberRelationshipSpecialtyStart DateEnd Date Tulio Ruggiero MD [address] [place] [address] PCP - GeneralFamily Medicine01/12/24Team MemberRelationshipSpecialtyStart DateEnd Date Tulio Ruggiero MD [address] [place] [address] PCP - GeneralFamily Medicine01/12/24Team MemberRelationshipSpecialtyStart DateEnd Date Tulio Ruggiero MD [address] [place] [address] PCP - GeneralFamily Medicine01/12/24Team MemberRelationshipSpecialtyStart DateEnd Date Tulio Ruggiero MD [address] [place] [address] PCP - GeneralFamily Medicine01/31/25 FOR RECORDS PERTAINING [...] BE BASED ON THE PRIMARY CLINICAL RECORDS. [employer] provides no warranty or guarantee of the accuracy or completeness of information in this document.
--- NOTE | 2025-05-04 12:09 | XR_ITS ---
The [address] [address] Patient Name: CARLOS LOCKE MRN: [id number] date: 1955 Sex: M Assigned Patient Location: [facility] Current Patient Location: [facility] Accession/Order Number: [id number] Exam Date: 05/04/2025 12:20 Report Date: 05/04/2025 23:38 At the request of: EPHRAIM BERKOWITZ NP Procedure: XR lumbar spine 6V w bending LUMBAR SPINE - 7 images CLINICAL HISTORY: lumbar spondylosis COMPARISON: None FINDINGS: Lumbar vertebral heights and alignment maintained. Moderate multilevel facet arthropathy mid to lower lumbar spine. There is 4 mm anterolisthesis of L3 and L4 on flexion imaging worrisome for pathologic instability. Otherwise mild multilevel degenerative change. XR/XR lumbar spine 6V w bending IMPRESSION: Multilevel predominantly posterior elements degenerative changes with findings worrisome for pathologic instability at L3-4. Impression dictated by: Sam Jauregui M.D. 05/04/2025 11:38 PM Dictation Location: [place] [address] Electronically authenticated by: [id number] Y Date: 05/04/2025 23:38
== END 2025-05-04 12:03 | disposition home or self-care (01) ==
LOC: RAD 12:04
PROVIDERS: PCP Family Medicine; Visit Provider Nurse Practitioner
DX: M47.816 Spondylosis without myelopathy or radiculopathy, lumbar region (principal); M51.369 Other intervertebral disc degeneration, lumbar region without mention of lumbar back pain or lower extremity pain
CPT/HCPCS: 72114

== ENCOUNTER 2025-05-16 08:13 | Day surgery (SDC) | payer MEDICARE, OTHER, SELFPAY ==
--- OUTSIDE RECORDS SUMMARY | 2024-07-27 04:00 | XMS_ITS ---
Author Organization The [facility] in [place] Address [address] [place] [address] Care Team Providers Care Solar Installer Technician Name Role Phone None, Unknown or Primary Care Provider Unavailab marylou NealevanJames [phone] REASON FOR VISIT -6 Month Follow Up- Encounters Encounter Location Date Provider Diagnosis [facility] (PODIATRY) [address] [place] [address] [place] [address] 07/27/2024 James Raya Left foot pain M79.672 Assessments Encounter Date Diagnosis (ICD Code) Assessment Notes Treatment Notes Treatment Clinical Notes Section Notes 07/27/2024 Left foot pain (ICD-10 - M79.672 ) Plan Of Treatment Pending Test Test Name Order Date XR Foot LT (3 views) * 07/27/2024 Progress Notes * Warner LOCKE CDOB: [birth year] (69 yo M)Acc No.[id number]:07/27/2024 UNLOCKED PROGRESS NOTE Follow Up Patient: Etelvina BOND Warner Farrar :?James Raya DPVirgilio, MSDOB:1955???Age: 68 Y???Sex:MaleDate:07/27/2024Phone:[phone]:JARETH DUNCAN [id number]:Unknown or None Subjective: * Chief Complaints: * 1 . -6 Month Follow Up-. * Medical History: Objective: * Vitals: Assessment: * Assessment: 1.?Left foot pain - M79.672??? Plan: * Treatment: ?Imaging: XR Foot LT (3 views) * * * Electronic signature of James Raya DPM on 05/16/2025 at 08:18 AM ESTSign off status: PendingVisit Status:?CANC (Cancelled) * Provider: Supriya Raya DPM, MS Date: 0 07/27/2024 Generated for Printing/Faxing/eTransmitting on:?05/16/2025 08:18 AM EST
--- OUTSIDE RECORDS SUMMARY | 2024-08-23 09:00 | XMS_ITS ---
Author Organization [facility] Address [address] [place] [address] Care Team Providers Care Sewing Machine Operator Paper Bags Name Role Phone Tulio Madrid Primary Care Provider Daniele Ruffin Unavailable [phone] REASON FOR VISIT 1ST POST OP LEFT TKA 08/09 Problems Problem Type SNOMED Code ICD Code Onset Dates Problem Status W/U Status Risk Notes Problem [id number] Aftercare following joint re placement surgery (Z47.1) [id number] of left artificial knee joint (Z96.652)Activeconfirmed Encounters Encounter Location Date Provider Diagnosis [facility] Office [address] [place] [address] [place] [address] 08/23/2024 Daniele Valencia Aftercare following joint replacement [...] Date SCC- KNEE 2 VIEW LEFT - 74747 08/23/2024 Progress Notes * CARLOS LOCKE CDOB: [birth year] (69 yo M)Acc No.[id number]:08/23/2024 Progress Notes Patient: Etelvina CARLOS BOND :?NATHALY Tena:1955???Age:69 Y ???Sex:MaleDate:08/23/2024Phone:[phone]:[place]ETH [place], [id number]:Tulio Madrid Subjective: * Chief Complaints: * 1 . 1ST POST OP LEFT TKA 08/09. * Medical History: Objective: * Vitals: Assessment: * Assessment: 1.?Aftercare following joint replacement surgery - Z47.1 (Primary)???2.?Presence of left artificial knee joint - Z96.652??? Plan: * Treatment: ?Imaging: SCC- KNEE 2 VIEW LEFT - 751614.?Presence of left artificial knee joint?Imaging: SCC- KNEE 2 VIEW LEFT - 45351 Forms: * Images: * Electronic signature of Daniele Valencia DO on 05/16/2025 at 08:18 AM ESTSign off status: Pending * Provider: Noa Valencia DO Date: 0 08/23/2024 Generated for Printing/Faxing/eTransmitting on:?05/16/2025 08:18 AM EST
--- OUTSIDE RECORDS SUMMARY | 2024-11-22 08:10 | XMS_ITS ---
Author Organization [facility] Address [address] [place] [address] Care Team Providers Care Boiler Water Tester Name Role Phone Tulio Madrid Primary Care Provider Daniele Ruffin Unavailable [phone] REASON FOR VISIT LEFT KNEE RECHECK DOS 02.10 Encounters Encounter Location Date Provider Diagnosis [facility] Office [address] [place] [address] [place] [address] 11/22/2024 Daniele Valencia Aftercare following joint replacement surgery Z47.1 Assessments Encounter Date Diagnosis (ICD Code) Assessment Notes Treatment Notes Treatment Clinical Notes Section Notes 11/22/2024 Aftercare following joint replac ement surgery (ICD-10 - Z47.1) Plan Of Treatment Pending Test Test Name Order Date SCC- KNEE 2 VIEW LEFT - 45960 11/22/2024 Progress Notes * CARLOS LOCKE CDOB: [birth year] (69 yo M)Acc No.[id number]:11/22/2024 Patient:?CARLOS LOCKE :?Daniele Valencia, DODOB:1955???Age:69 Y ???Sex:MaleDate:11/22/2024Phone:[phone]:JARETH DUNCAN [id number]:Tulio Madrid Subjective: * Chief Complaints: * 1 . LEFT KNEE RECHECK DOS 02.10. * Medical History: Objective: * Vitals: Assessment: * Assessment: 1.?Aftercare following joint replacement surgery - Z47.1 (Primary)??? Plan: * Treatment: ?Imaging: SCC- KNEE 2 VIEW LEFT - 17039 * Procedure Codes: 7 3560 X-ray Knee, 2 view Forms: * Images: * Electronic signature of Daniele Valencia DO on 05/16/2025 at 08:17 AM ESTSign off status: Pending * Provider: Noa Valencia DO Date: 0 11/22/2024 Generated for Printing/Faxing/eTransmitting on:?05/16/2025 08:17 AM EST
--- OUTSIDE RECORDS SUMMARY | 2025-05-16 08:17 | XMS_ITS | Encounter Summary ---
Author Organization [facility] Address [address] [place] [address] Care Team Providers Care Lion Tamer Name Role Phone Tulio Madrid MD Primary Care Provider [phone] Encounter Details DateTypeDepartmentCare Team (Latest Contact Info)Ygppvbtappi10/07/2025linisync Result Encounter [facility] External Department Unsolicited Provider, Generic External Data Social History Tobacco UseTypesPacks/DayYears UsedDateSmoking Tobacco: NeverSmokeless Tobacco: NeverSex and Gender InformationValueDate RecordedSex Assigned at BirthNot on fileLegal TneWuwr6309/25/2022 7:24 PM EDTGender IdentityNot on fileSexual OrientationNot on filedocumented as of this encounter Plan of Treatment Not on file documented as of this encounter Procedures Procedure NamePriorityDate/TimeAssociated DiagnosisCommentsECG 12-LEAD07/20/2024 9:49 AM EST documented in this encounter Results * ECG 12-LEAD (07/20/2024 9:49 AM EST)Anatomical RegionLateralityModalityOther Specimen (Source)Anatomical Location / LateralityCollection Method / Volume Collection TimeReceived Time07/20/2024 9:49 AM EST Narrative 07/20/2024 8:01 PM EST [facility] ?[address] ? [place] [address] ? Electrocardiograph Report ? Signed ? Patient: CORNELIA,WARNER Farrar ?MR#: [id number] ?? : 1955 ?Acct:[id number] ?? Age/Sex: 68 / M ?ADM Date: 07/20/24 ?? Loc: PST ? Attending Dr: Daniele Valencia M.D. ? Ordering Physician: Daniele Valencia M.D. ?? Date of Service: 07/20/24 ?? Procedure(s): ECG 12 lead ?? Accession Number(s): [id number] ? cc: ?[facility] ? Test Date: ?2024-07-20 ?? Pat Name: ? WARNER CORNELIA ? Department: ? Room: ? - ?? 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 : ?1955 ? Requested By: [id number] ?? Order Number: [id number] ?Reading MD: ?? ABDOULAYE ??BALL ? Measurements ?? Intervals ?[place] ? Rate: ? 73 ? P: ?65 ?? PA: ? 169 ?QRS: ?-58 ?? QRSD: ? 140 ?T: ?38 ?? QT: ? 387 ? QTc: ?429 ? Interpretive Statements ?? SINUS RHYTHM ?? RIGHT BUNDLE BRANCH BLOCK [120+ ms QRS DURATION, UPRIGHT V1, 40+ ms S IN ?? I/aVL/V4/V5/V6] ?? LEFT ANTERIOR FASCICULAR BLOCK [QRS AXIS <= -45, QR IN I, RS IN II] Electronically Signed On 07-20-2024 20:01:19 EST by ABDOULAYE ??VALERIE ? Dictated By: ?Abdoulaye Padilla D.O. ? Signed By: ?07/20/ 2001 ? DD/ 0949 ? TD/TT: ? Career Services Manager: Procedure Note Radiology, Radiologist, - 07/20/2024 [place] [address] Electrocardiograph Report Signed Patient: WARNER LOCKE CMR#: [id number] : 1955cct:[id number] Age/Sex: 68 / MADM Date: 07/20/24 Loc: [facility] Attending Dr: Daniele Valencia M.D. Ordering Physician: Daniele Valencia M.D. Date of Service: 07/20/24 Procedure(s): ECG 12 lead Accession Number(s): [id number] cc: 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 Signed By:07/20/242000 DD/ 0949 TD/TT: Career Services Manager: Authorizing ProviderResult TypeResult StatusGeneric External Data Provider [facility]NC IMAGINGFinal Result documented in this encounter Visit Diagnoses Not on filedocumented in this encounter Care Teams Team MemberRelationshipSpecialtyStart DateEnd Date Tulio Madrid MD PCP - GeneralFamily Medicine01/12/24documented as of this encounter
--- OUTSIDE RECORDS SUMMARY | 2025-05-16 08:17 | XMS_ITS | Clinical Summary ---
Author Organization [facility] Address [address] [place] [address] Care Team Providers Care Yard General Car Supervisor Name Role Phone Tulio Madrid MD Primary Care Provider [phone] Allergies Active AllergyReactionsCriticalityNoted QwgoImesarwzEpsscselvQsgkv03/18/2023 Oxycodone-Yuztzmlpdhknk12/18/2023 Medications MedicationSigDispense QuantityRefillsLast FilledStart DateEnd DateStatus atorvastatin (Lipitor) 20 mg tablet atorvastatin 20 mg tablet TAKE 1 TABLET BY MOUTH EVERYDAY AT YYDRCMQ8204/25/2020Active colchicine 0.6 mg tablet Take 0.6 mg [...] 2 TABLETS BY MOUTH EVERY DAY AT ZYDKJMB0307/11/2022ctive Active Problems ProblemNoted DateDiagnosed DateBenign prostatic hyperplasia with urinary wvusegskiyx01/18/2023History of colonic cwxoln0507/31/2022Hydronephrosis with renal and ureteral calculus qiqehiznbaa12/18/2023Liver mass07/31/2022Long term current use of anticoagulant sazjewq6807/31/2022Neoplasm of uncertain behavior of liver and biliary /18/2580Pqcpchlo90/18/0590Ktadoi05/31/2022ack pain 12/11/2021iabetes ptblridw71/31/3333Mtfx18/31/2022History of pulmonary embolism 12/11/2021 Assessment & Plan (07/31/2022 2:19 PM EST): Currently stable History of severe acute respiratory syndrome coronavirus 2 (SARS-CoV-2) disease 12/11/20219025Ghstjsjmsmnyzq86/31/2022 Assessment & Plan (07/31/2022 2:17 PM EST): Lipid abnormalities are currently well controlled with lipitor 20 mg- LDL currently 58.6 on labs 07/26/2022 Liver function 04/2022 were normal Hypertensive xxoqykbx00/31/2022 Assessment & Plan (07/31/2022 2:18 PM EST): Hypertension is well controlled 114/64 Continue lisinopril 5 mg Recent CR elevated 1.59- his cr typically has been 1.2-1.4 - He has been on antibiotics for Lt foot infection- DFU with wound care. Shzhvkq2512/11/2021bstructive sleep apnea macmgamw66/31/2022 Family History Medical HistoryRelationNameCommentsStrokeFatherRelationNameStatusCommentsFather Social History Tobacco UseTypesPacks/DayYears UsedDateSmoking Tobacco: NeverSmokeless Tobacco: Never Tobacco Cessation:Counseling Given: Not Answered Alcohol UseStandard Drinks/WeekCommentsYes0 (1 standard drink = 0.6 oz pure alcohol)occasionalUT Safety & EnvironmentAnswerDate RecordedFear of Current or Ex-PartnerNot on file09/04/2023Emotionally AbusedNot on file09/04/2023hysically AbusedNot on file09/04/2023Sexually AbusedNot on file09/04/2023hysically or Sexually AbusedNot on file09/04/2023Sex and Gender InformationValueDate Recorded Sex Assigned at BirthNot on fileLegal BgnUqvn5301/09/2022 9:30 PM EDTGender IdentityNot on fileSexual OrientationNot on file Last Filed Vital Signs Vital SignReadingTime TakenCommentsBlood Qbgfmnza835/6401 1:39 PM EST Aoytn451507/31/2022 1:39 PM ESTTemperature--Respiratory Rate--Oxygen Zjrkevsppm43% 07/31/2022 1:39 PM ESTInhaled Oxygen Concentration--Rhqzqi921 kg (308 lb) 07/31/2022 1:39 PM FSTUhxodi116.4 cm (6' 1 )07/31/2022 1:39 PM ESTBody Mass Index40.64007/31/2022 1:39 PM EST Plan of Treatment Health MaintenanceDue DateLast DoneCommentsCT Lfjkafxlbapw63/09/1956Colonoscopy 1955Colorectal Cancer Hrdwcaflg37/09/1957Diabetes: Hemoglobin A1C 1955FIT-DNA1956FIT1956FOBT1955Medicare Annual Wellness (AWV)1955 6053Hvknqktimdaad19/09/1957Diabetes: Retinopathy Acwdhmota44/09/1967 Depression Vrzltiior79/09/1969Diabetes: Urine Protein Suqsmalef02/09/1976Adult Hcqyvyn7208/22/1978Zoster Vaccines (1 of 2)2006Fall Risk Cmgknpyzt83/09/2022 Pneumococcal Vaccine: 50+ Years (2 of 2 [...] Date Tulio Madrid MD [address] [place] [address] PCP - [facility]07/05/24
--- OUTSIDE RECORDS SUMMARY | 2025-05-16 08:17 | XMS_ITS | Encounter Summary ---
Author Organization [facility] Address [address] [place] [address] Care Team Providers Care Hand Therapist Name Role Phone Tulio Ruggiero MD Primary Care Provider [phone] Encounter Details DateTypeDepartmentCare Team (Latest Contact Info)Oedcreuxaol52/07/2025linisync Result Encounter [facility] Unsolicited Provider, Generic External Data Social History Tobacco UseTypesPacks/DayYears UsedDateSmoking Tobacco: NeverSmokeless Tobacco: NeverSex and Gender InformationValueDate RecordedSex Assigned at BirthNot on fileLegal AugZggy9809/25/2022 7:24 PM EDTGender IdentityNot on fileSexual OrientationNot on filedocumented as of this encounter Plan of Treatment Not on file documented as of this encounter Procedures Procedure NamePriorityDate/TimeAssociated DiagnosisCommentsALL MISCELLANEOUS TZBICkgyhcz93/07/2025 9:59 AM EST MRSA SCREENING LACKMNDAgmivhr63/07/2025 9:50 AM EST ECG 12-LEAD07/20/2024 9:50 AM EST documented in this encounter Results * ALL MISCELLANEOUS TEST (07/20/2024 9:59 AM EST)ComponentValueRef RangeTest MethodAnalysis TimePerformed AtPathologist SignatureMISCELLANEOUS TESTCOMMENT. TBHComment: Test Ordered: [id number] Nicotine and Metabolite, Ur Qn Nicotine <10.0 ng/mL BN ?? Reference Range: . This test was developed and its performance characteristics determined by [facility]. It has not been cleared or approved by the Food and Drug Administration. Nicotine levels greater than 100.0 are consistent with the use of tobacco or tobacco cessation products. Cotinine <10.0 ng/mL BN ?? Reference Range: . This test was developed and its performance characteristics determined by [facility]. It has not been cleared or approved by the Food and Drug Administration. Cotinine levels greater than 200.0 are consistent with the use of tobacco or tobacco cessation products. Performed at: ?? - [facility] ??[id number] Finishing Range Feeder: Giovany Bhatt MD, Phone: ??[phone] Performed at: ?? - [facility] ??[id number] Finishing Range Feeder: Ivan Mckay PhD, Phone: ??[phone] Specimen (Source)Anatomical Location / LateralityCollection Method / Volume Collection TimeReceived Time07/20/2024 9:59 AM EST07/20/2024 10:02 AM EST Narrative [facility] - 07/23/2024 7:09 AM EST [id number] Nicotine and Metabolite, Quantitative, Urine Authorizing ProviderResult TypeResult StatusGeneric External Data Provider CLINISYNCFinal ResultPerforming OrganizationAddressCity/State/ZIP CodePhone Number [facility] * MRSA SCREENING CULTURE (07/20/2024 9:50 AM EST)ComponentValueRef RangeTest MethodAnalysis TimePerformed AtPathologist SignatureMRSASCRN1 ??MRSA Screening Culture CLWJWJIMEDL7DbaslzlaHMJWHAACNNR1Chaijlzfy at: [facility] JacksonTBHMRSASCRN1 [address] [place] [address] [id number] Director: Ivan Mckay PhD, Phone: [phone] (Source)Anatomical Location / LateralityCollection Method / VolumeCollection TimeReceived Time07/20/2024 9:50 AM EST07/20/2024 10:03 AM EST Narrative [facility] - 07/22/2024 12:08 PM EST Authorizing ProviderResult TypeResult StatusGeneric External Data ProviderLAB BLOOD ORDERABLESFinal ResultPerforming OrganizationAddressCity/State/ZIP Code Phone Number [facility] * ECG 12-LEAD (07/20/2024 9:50 AM EST)Anatomical RegionLateralityModalityOther Specimen (Source)Anatomical Location / LateralityCollection Method / Volume Collection TimeReceived Time07/20/2024 9:50 AM EST Narrative 07/20/2024 8:02 PM EST [facility] ?[address] ? [place] [address] ? Electrocardiograph Report ? Signed ? Patient: CORNELIA,CARLOS C ?MR#: [id number] ?? : 1955 ?Acct:[id number] ?? Age/Sex: 68 / M ?ADM Date: 07/20/24 ?? Loc: PST ? Attending Dr: Daniele Valencia M.D. ? Ordering Physician: Daniele Valencia M.D. ?? Date of Service: 07/20/24 ?? Procedure(s): ECG 12 lead ?? Accession Number(s): [id number] ? cc: ?[facility] ? Test Date: ?2024-07-20 ?? Pat Name: ? CARLOS CORNELIA ? Department: ? Room: ? - ?? Gender: ? Male ? [employer]: ? : ?1955 ? Requested By: TULIO RUGGIERO ?? Order Number: [id number] ?Reading MD: ?? ABDOULAYE ??BALL ? Measurements ?? Intervals ?[place] ? Rate: ? 83 ? P: ?-3 ?? NM: ? 155 ?QRS: ?-53 ?? QRSD: ? 141 ?T: ?33 ?? QT: ? 381 ? QTc: ?449 ? Interpretive Statements ?? SINUS RHYTHM ?? RIGHT BUNDLE BRANCH BLOCK [120+ ms QRS DURATION, UPRIGHT V1, 40+ ms S IN ?? I/aVL/V4/V5/V6] ?? LEFT ANTERIOR FASCICULAR BLOCK [QRS AXIS <= -45, QR IN I, RS IN II] Electronically Signed On 07-20-2024 20:01:41 EST by ABDOULAYE ??BALL ? Dictated By: ?Abdoulaye Padilla.ORusty ? Signed By: ?07/20/24 2002 ? DD/ 0950 ? TD/TT: ? Staff Assistant: Procedure Note Radiology, Radiologist, - 07/20/2024 [place] [address] Electrocardiograph Report Signed Patient: CARLOS LOCKE CMR#: [id number] : 7Acct:[id number] Age/Sex: 68 / MADM Date: 07/20/24 Loc: PST Attending Dr: Daniele Valencia M.D. Ordering Physician: Daniele Valencia M.D. Date of Service: 07/20/24 Procedure(s): ECG 12 lead Accession Number(s): [id number] cc: [facility] Test Date: 2024-07-20 Pat Name: CARLOS LOCKE Department: Room: - Gender: Male [employer]: : 1955 Requested By: TULIO RUGGIERO Order Number: [id number] Reading MD: ABDOULAYE PADILLA Measurements Intervals [place] Rate: 83 P: -3 NM: 155 QRS: -53 QRSD: 141 T: 33 QT: 381 QTc: 449 Interpretive Statements SINUS RHYTHM RIGHT BUNDLE BRANCH BLOCK [120+ ms QRS DURATION, UPRIGHT V1, 40+ ms S IN I/aVL/V4/V5/V6] LEFT ANTERIOR FASCICULAR BLOCK [QRS AXIS <= -45, QR IN I, RS IN II] Electronically Signed On 07-20-2024 20:01:41 EST by ABDOULAYE PADILLA Dictated By: Abdoulaye Padilla D.O. Signed By:07/20/242001 DD/ 0950 TD/TT: Staff Assistant: Authorizing ProviderResult TypeResult StatusGeneric External Data Provider CLINISYNC IMAGINGFinal Result documented in this encounter Visit Diagnoses Not on filedocumented in this encounter Care Teams Team MemberRelationshipSpecialtyStart DateEnd Date Tulio Ruggiero MD PCP - GeneralFamily Medicine01/12/24documented as of this encounter
--- OUTSIDE RECORDS SUMMARY | 2025-05-16 08:17 | XMS_ITS | Clinical Summary ---
Author Organization [facility] Address [id number] [address] [place] [address] Care Team Providers Care Pharmacy Account Director Name Role Phone Unavailable Primary Care Provider Unavailabl e Social History Tobacco UseTypesPacks/DayYears UsedDateSmoking Tobacco: Never AssessedChildcare AnswerDate WacevibtXtocldepsMrmenes72/11/2019EmploymentAnswerDate Recorded FdovrlgnhrDtjozsb53/11/2019Purpose - LifeAnswerDate RecordedPurpose and direction in pjezKunmzor05/11/2021ex and Gender InformationValueDate Recorded Sex Assigned at BirthNot on fileLegal RfhErwi4902/14/2015 9:00 PM EDTGender IdentityNot on fileSexual OrientationNot on file Plan of Treatment Health MaintenanceDue DateLast DoneCommentsDepression Jvblmpoec25/09/1969Tobacco Azeaqhtih97/09/1969Adult BMI Dztsnkimg94/09/1975DTaP,Tdap and Td Vaccines (1 - Tdap)1975Zoster (Shingles) Vaccine (1 of 2)2006Fall Risk Screening 2021Influenza Giwarpt8303/14/2025RSV ( or age 60+ yrs) (1 - 1-dose 75+ series)2031 Medical Devices Not on file
--- OUTSIDE RECORDS SUMMARY | 2025-05-16 08:18 | XMS_ITS | Clinical Summary ---
Author Organization [facility] Address [address] [place] [address], [address] [place] [address] Care Team Providers Care Camp Recreation Specialist Name Role Phone Tulio Madrid MD Primary Care Provider + Social History Tobacco UseTypesPacks/DayYears UsedDateSmoking Tobacco: Never AssessedSex and Gender InformationValueDate RecordedSex Assigned at BirthNot on fileLegal Sex Male01/31/2025 12:58 PM EDTGender IdentityNot on fileSexual OrientationNot on file Plan of Treatment Health MaintenanceDue DateLast DoneCommentsDepression Fnzzcd5808/22/1968Hepatitis C dgfkxc7908/22/1974DTaP/Tdap/Td vaccine (1 - Tdap)08/22/19757863Jdnzgf97/09/1997 Ivsgnxtqlif85/09/2002Colorectal Cancer Jkalzf1308/22/2001FIT/FOBT: Average risk 2001Fecal-DNA (Cologuard): Average risk2001Sigmoidoscopy/CT hkjrxsylqung56/09/2002Shingles vaccine (1 of 2)2006Pneumococcal 50+ years Vaccine (2 of 2 - PCV)/Flu vaccine (#1)/01/2024, 04/17/2022, 04/07/2021, Additional history existsCOVID-19 Vaccine ( - 2023- season)509/, 04/20/2023, 03/23/2022, Additional history exists Respiratory Syncytial [...] Date Tulio Madrid MD [address] [place] [address] PCP - GeneralFaakly Medicine01/31/25
--- OUTSIDE RECORDS SUMMARY | 2025-05-16 08:18 | XMS_ITS | Patient Health Record ---
Author Organization [facility] Address [address] [place] [address] Care Team Providers Care Grocery Supervisor Name Role Phone Tulio Madrid Primary Care Provider Daniele Ruffin Unavailable [phone] Akash Hall Unavailable [phone] Results Component Value Reference Range Notes XR Foreign Body Loc Eye Bila teral (Not yet reviewed by provider) Interpretation: Performing Lab: Notes/Report: Patient Name: Carlos Locke Procedure: AP view of the orbits. XR Knee 1 or 2 Views Left (N ot yet reviewed by provider) Interpretation: Performing Lab: Notes/Report: Patient Name: Carlos Locke EXAM: Left knee XR Knee Standing AP Bilatera l (Not yet reviewed by provider) Interpretation: Performing Lab: Notes/Report: Patient Name: Carlos Locke EXAM: XR Knee Standing AP Bilateral MRI Knee Surg.Navigate or Pl an ONLY Left (Not yet reviewed by provider) Interpretation: Performing Lab: Notes/Report: Patient Name: Carlos Locke HISTORY: Arthritis of the left knee. Preoperative planning. Surgery Scheduling Reviewed date:08/31/2024 09:51:53 AM Interpretation: Performing Lab: Notes/Report: Primary Insurance Company: LILIAN Surgeon/Assist:ANTHONY/VAHE ONESmackenzie [facility]: 08/09/2024 @ 9 [facility] arrival time day of:7:00 AMSurgery End Time:12:00Procedure: LEFT TOTAL KNEE ARTHROPLASTYSpecial Equipment:[employer] AND [employer] ([employer] VISIONEERC-Arm: YESDiagnosis:OSTEOARTHRITIS OF LEFT KNEEAdmission Type:OPAnesthesia Type/CPNB: GENERAL/DLGHEOpl94 HR OBSPost-op Appointment Date:2/10/25 @ 2 PMLatex AllergyNO Lab Location:[facility] Date/Time:07/20/2024 @ 9 [facility] Date/ Pilot Plant Technician:ISMAEL Shell & Physical Appointment Date/:07/26/24Pre-op labs/Chest Order:CBC WI,CMP,MRSA,UA WITH C AND S, URINE NICOTINE,CXR,EKGHad or have MRSA/Direct contact w MRSA pt/HCWNOHad dental problems/Yes-no/type:NOXR KNEE LEFT (3 VIEWS) (Not yet reviewed by provider) Interpretation: Performing Lab: Notes/Report: EXAM: XR KNEE LEFT (3 VIEWS) Performed at: [address] [address] XR Knee Standing AP Bilateral (Not yet reviewed by provider) Interpretation: Performing Lab: Notes/Report: Patient Name: Carlos Locke EXAM: XR Knee Standing AP Bilateral Reason For Referral Reason NO PRIOR AUTH REQUIR ED ANTHEM...NOT SCHED...PLEASE PRECERT LEFT KNEE MRI WITH EDEN AND NEPHEW PROTOCOL AT [facility] Diagnosis 1 Primary osteoarthrit is of left knee (M17.12) Diagnosis 2 Pain in left knee (M 25.562) Referral Organization [facility] Referring Provider First Name Daniele Referring Provider Last Name Anthony Referring Provider Speciality Orthopedic Surgery Referred Organization [facility] Radiology Dept . Referred Provider Daniele Valencia Referred Address [address] [place] [address], Referred Provider Specialty Orthopedic S urgery Procedure 1 MRI Joint Lower Ext w/o Dye (63467) General Notes Ismael Mariee 2023 10:22:15 AM >, Bell Avendano 06/23/2024 03:49:25 PM > PENDING WITH [facility]. FORM AND CLINICALS FAXED. FORM IN CHART.Juan Alberto Amber 06/25/2024 08:14:25 AM > NO PRIOR AUTH REQUIRED PER FAX FROM [facility]. REF IN CHART. PER AVAILITY, LILIAN IS ACTIVE OF 07/14/2022. FAXED TO [facility].Kodi Tricia 06/28/2024 06:56:53 AM >ORDERS FAXED Referral Priority Routine Reason APPROVED ANTHHAZEL... 08/09...PLEASE PRECERT LEFT TOTAL KNEE REPLACEMENT WITH EDEN AND NEPHEW AT [facility] Diagnosis 1 Primary osteoarthrit is of left knee (M17.12) Referral Organization [facility] Referring Provider First Name Daniele Referring Provider Last Name Anthony Referring Provider Speciality Orthopedic Surgery Referred Organization [facility] Outpatient Referred Provider Daniele Valencia Referred Address [address] [place], [place],[address],[place] Referred Provider Specialty Orthopedic S urgery Procedure 1 Arthroplasty Knee To clare Med/Lat Compartments (62481) General Notes Ismael Mariee 2024 09:43:18 AM >, Bell Avendano 07/23/2024 12:38:24 PM > AUTH IS PENDING WITH [facility]. FORM AND CLINICALS WERE FAXED. FORM IN CHART., Bell Avendano 07/26/2024 02:03:05 PM > AUTH WAS APPROVED PER [facility]. APPROVED DATES ARE FROM 07/23/2024-09/20/2024. AUTH #[id number]. AUTH IN CHART. PER AVAILITYLILIAN IS ACTIVE OF 07/14/2022. FAXED TO [facility]. Referral Priority Routine Medications Medication SIG (Take, [...] in the past year?Monthly or less (1 point)Qqxpdq9WejsbxyxzckunxFlikasap Tobacco Control (Standard) Question Answer Notes Tobacco use: Nonsmoker Problems Problem Type SNOMED Code ICD Code Onset Dates Problem Status W/U Status Risk Notes Problem 267486155 Aftercare following joint re placement surgery (Z47.1) KfkessxjglxfqflJvjsnfb2857989293Gcjn in right knee (M25.561)Activeconfirmed Zxfleed386824532368646Hcwwbpl osteoarthritis of left knee (M17.12)Active rsrjxdozaCtmxsvi180078875143145Igix in left knee (M25.562)ActiveconfirmedProblem 467863228258Fbdpnotl of left artificial knee joint (Z96.652)Activeconfirmed Ldyvzsp686506162Mngkniw osteoarthritis of knees, bilateral (M17.0)Active confirmed Vital Signs Height 6'1 in 01/31/2025 Jlisfg290 lbs5BMI37.9901/31/2025 Encounters Encounter Location Date Provider Diagnosis [facility] [address] [place] [address] 06/21/2024 Daniele Valencia Pain in right knee M25.561 ; Pain in left knee M25.562 and Primary osteoarthritis of left knee M17.12 [facility] [address] [place] [address] 07/26/2024 Daniele Anthony Primary osteoarthrit is of left knee M17.12 [facility] Outpatient [address] [place] [address] 08/23/2024 Daniele Valencia Primary osteoarthrit is of left knee M17.12 [facility] [address] [place] [address] 09/06/2024 Daniele Valencia Aftercare following joint replacement surgery Z47.1 and Presence of left artificial knee joint Z96.652 [facility] [address] [place] [address] 10/04/2024 Daniele Valencia Aftercare following joint replacement surgery Z47.1 and Presence of left artificial knee joint Z96.652 [facility] [address] [place] [address] 12/20/2024 Daniele Valencia Aftercare following joint replacement surgery Z47.1 and Presence of left artificial knee joint Z96.652 [facility] [address] [place] [address] 01/31/2025 Daniele Valencia Aftercare following joint replacement surgery Z47.1 and Presence of left artificial knee joint Z96.652 [facility] [address] [place] [address] 06/08/2024 [facility] [place] [address]/ Daniele [facility] [place] [address]/04/2025[facility] of left [facility] M17.12 ; Presence of left artificial knee joint Z96.652 and Aftercare following joint replacement surgery Z47.1[facility] [place] [address]/Dylan OrlandoAftercare following joint replacement surgery Z47.1[facility] [place] [address]/09/2024Dylan OrlandoAftercare following joint replacement surgery Z47.1 Assessments Encounter Date Diagnosis (ICD Code) Assessment Notes Treatment Notes Treatment Clinical Notes Section Notes 06/21/2024 Pain in right knee (ICD-10 - M25 .561) Left knee qjbyzxkpzfzdwk04/09/2024ain in left knee (ICD-10 - M25.562)Left knee cvzilgxdxxjtfk72/13/2025Primary osteoarthritis of left knee (ICD-10 - M17.12) Left knee ccgalmohaauqlf76/10/2025Primary osteoarthritis of left knee (ICD-10 - M17.12)08/23/2024Primary osteoarthritis of left knee (ICD-10 - M17.12)08/23/2024 Presence of left artificial knee joint (ICD-10 - Z96.652)08/26/2024ftercare following joint replacement surgery (ICD-10 - Z47.1)09/06/2024ftercare following joint replacement surgery (ICD-10 - Z47.1)Status post left total knee pvyosmsnchwo60/03/2025ftercare following joint replacement surgery (ICD-10 - Z47.1)10/04/2024ftercare following joint replacement surgery (ICD-10 - Z47.1) Status post left total knee oyqvszkutvph03/09/2025ftercare following joint replacement surgery (ICD-10 - Z47.1)Status post left total knee arthroplasty. 5Aftercare following joint replacement surgery (ICD-10 - Z47.1)Right knee OA01/31/2025Presence of left artificial knee joint (ICD-10 - Z96.652)Right knee OA12/20/2024Presence of left artificial knee joint (ICD-10 - Z96.652)Status post left total knee arthroplasty.10/04/2024Presence of left artificial knee joint (ICD-10 - Z96.652)Status post left total knee fbwmoirttffh41/24/2025 Presence of left artificial knee joint (ICD-10 - Z96.652)Status post left total knee bkpjwozvvyio18/10/2025ftercare following joint replacement surgery (ICD-10 - Z47.1)06/21/2024rimary osteoarthritis of left knee (ICD-10 - M17.12)Left knee rfelxojppliupu43/09/2024OtherI discussion with the patient regarding his left knee pain. Does have severe osteoarthritis of the left knee. We discussed treatment options. Has exhausted conservative management no relief. Will proceed forward with left total knee arthroplasty. He understands risk and benefits of the procedure. No guarantees made. Will plan for left total knee arthroplasty with freddy eden and nephew. Willhave him received clearance from his PCP and repeat A1c.Left knee /13/2025OtherPatient is a 68-year-old male presenting today for his left knee osteoarthritis. He is exhausted con servative management. Do believe total knee arthroplasty can provide him with some benefit. Discussed risk and benefits of surgery in detail. No guarantees send and signed in the office today. Plan for left total knee arthroplasty.Left knee tbmdeijjnrjjox48/24/2025OtherPatient overall doing very well today in regard to his left total knee arthroplasty. Mobilizing quite well. Range of motion he is fairly stiff but overall progressing appropriately. Continue DVT prophylaxis. Follow-up in 1 month for clinical exam no x-rays.Status post left total knee mevfxrziizgj66/24/2025OtherPatient doing well today 6 weeks postop. Range of motion improving. Continue with aggressive PT. He may start to drive. Will see him back in the office in 6 weeks with x-raysStatus post left total knee klpurpjnbrni08/09/2025OtherPatient doing quite well today in regards to [...] Order Date Knee, left 3v AP, Lat, [place] - 47507 0 01/31/2025 PT - Evaluate and Treat, as directed, 2 - 3 times a week x 4 - 6 weeks 07/26/2024 XR Foreign Body Loc Eye Bilateral 2024 XR Knee 1 or 2 Views Left 07/23/2024 XR Knee Standing AP Bilateral 07/26/2024 XR Knee Standing AP Bilateral 07/26/2024 SCC- KNEE 4 VIEW LEFT-31745 06/21/2024 XR KNEE LEFT (3 VIEWS) 01/31/2025 SCC- KNEE 4 VIEW RIGHT 86240 06/21/2024 SCC- KNEE 2 VIEW LEFT - 40146 09/06/2024 SCC- KNEE 2 VIEW LEFT - 16335 10/04/2024 SCC- KNEE 2 VIEW LEFT - 58632 12/20/2024 MRI Knee Surg.Navigate or Plan ONLY Left 07/23/2024 Hip to ankle Lt -60041 visioneer 024 MRI : Knee, Left. Eden & Nephew Visiona shanita including long leg films [address]1947 06/21/2024 Insurance Providers Payer Name Payer Address Payer Phone Subscriber Number Group Number Insured Name Patient Relationship to Insured Coverage Start Date Coverage End Date [place] [address] [place] [address] [id number] ILA LOCKE Spouse - patient is the spouse of the insured 5 Medications Administered Medication Instructions Date of Administration Dosage Notes BUPIVACAINE mLDepo-Gkbtjw95 dClgnztsdbm71/26/20244 mL
--- OUTSIDE RECORDS SUMMARY | 2025-05-16 08:19 | XMS_ITS | Encounter Summary ---
Author Organization [facility] Address [address] [place] [address] Care Team Providers Care Extruder Operator Horizontal Name Role Phone Tulio Madrid MD Primary Care Provider [phone] Encounter Details DateTypeDepartmentCare Team (Latest Contact Info)Iwinkpmpjpd68/11/2024Clinisync Result Encounter [facility] External Department Unsolicited Provider, Generic External Data Social History Tobacco UseTypesPacks/DayYears UsedDateSmoking Tobacco: NeverSmokeless Tobacco: NeverSex and Gender InformationValueDate RecordedSex Assigned at BirthNot on fileLegal NudCaxl2309/25/2022 7:24 PM EDTGender IdentityNot on fileSexual OrientationNot on filedocumented as of this encounter Plan of Treatment Not on file documented as of this encounter Procedures Procedure NamePriorityDate/TimeAssociated DiagnosisCommentsXR KNEE 4+ VIEWS IWHMLEQEY22/11/2024 6:16 AM EST documented in this encounter Results * XR knee 4+ views bilateral (06/23/2024 6:16 AM EST)Anatomical RegionLaterality ModalityLower Extremities, KneeBilateralRadiographic ImagingSpecimen (Source) Anatomical Location / LateralityCollection Method / VolumeCollection Time Received Time06/23/2024 6:16 AM EST Narrative 06/23/2024 6:19 AM EST [facility] ?[address] ? [place] [address] ?XRay Report ? Signed ? Patient: CORNELIA,WARNER C ?MR#: [id number] ?? : 1955 ?Acct:[id number] ?? Age/Sex: 68 / M ?ADM Date: 12/09/24 ?? Loc: EC ? Attending Dr: Daniele Valencia M.D. ? Ordering Physician: Daniele Valencia M.D. ?? Date of Service: 06/21/24 ?? Procedure(s): XR knee MARIE 4V ?? Accession Number(s): [id number] ? cc: Daniele Valencia M.D.; Tulio Madrid M.D. ? [facility] ? [address] ? [place] [address] ? Patient Name: ?? WARNER Farrar CORNELIA ? MRN: [facility]:[id number] ? date: 1955 ?Sex: M ?? Assigned Patient Location: EC ?? Current Patient Location: ? Accession/Order Number: [id number] ?? Exam Date: 06/21/2024 ??13:16 ?Report Date: 06/23/2024 ??06:16 ? At the request of: ?? DAINELE VALENCIA ? Procedure: ??XR knee MARIE 4V ? EXAMINATION: XR knee MARIE 4V ? HISTORY: BILATERAL KNEE PAIN ? COMPARISON: XR knee bilateral 03/24/2023 ? FINDINGS: ? RIGHT FINDINGS: ?? BONES: Marked narrowing of the medial joint space with lnjb-vf-mnqc ?? articulation. Periarticular degenerative osteophytes involving all 3 ?? compartments; large involving the medial compartment. ?? SOFT TISSUES: No visible soft tissue swelling. ?? OTHER: Small joint effusion. ? LEFT FINDINGS: ?? BONES: Marked narrowing of the medial joint space with pqxp-up-aivs ?? articulation. Periarticular degenerative osteophytes involving all 3 ?? compartments; large involving the medial and lateral compartments. ?? SOFT TISSUES: No visible soft tissue swelling. ?? OTHER: Small joint effusion. ? XR/XR knee MARIE 4V ?? IMPRESSION: ?? RIGHT CONCLUSION: Marked degenerative joint disease; stable to minimally ?? progressed. ? LEFT CONCLUSION: Marked degenerative joint disease; stable to minimally ?? progressed. ? Electronically authenticated by: AKASH ??BIB ?? Date: 06/23/2024 ??06:16 ? Dictated By: ?Akash Kenny M.D. ? Signed By: ?06/23/24 0619 ? DD/ 0616 ? TD/TT: ? Tar Heater: Procedure Note Radiology, Radiologist, MD - 12/11/[address] [address] XRay Report Signed Patient: WARNER LOCKE CMR#: [id number] : 1955cct:[id number] Age/Sex: 68 / MADM Date: 06/21/24 Loc: EC Attending Dr: Daniele Valencia M.D. Ordering Physician: Daniele Valencia M.D. Date of Service: 06/21/24 Procedure(s): XR knee MARIE 4V Accession Number(s): [id number] cc: Daniele Valencia M.D.; Tulio Madrid M.D. The [place] [address] Patient Name: WARNER LOCKE MRN: [facility]:[id number] date: 1955 Sex: M Assigned Patient Location: Current Patient Location: Accession/Order Number: [id number] Exam Date: 06/21/2024 13:16 Report Date: 06/23/2024 06:16 At the request of: DANIELE VALENCIA Procedure: XR knee MARIE 4V EXAMINATION: XR knee MARIE 4V HISTORY: BILATERAL KNEE PAIN COMPARISON: XR knee bilateral 03/24/2023 FINDINGS: RIGHT FINDINGS: BONES: Marked narrowing of the medial joint space with tlid-ga-gapz articulation. 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 SOFT TISSUES: No visible soft tissue swelling. OTHER: Small joint effusion. LEFT FINDINGS: BONES: Marked narrowing of the medial joint space with usnq-kh-rfcy articulation. Periarticular degenerative osteophytes involving all 3 [...] Kenny M.D. Signed By:06/23/24618 DD/ 5 TD/TT: Tar Heater: Authorizing ProviderResult TypeResult StatusGeneric External Data ProviderIMG XR PROCEDURESFinal Result documented in this encounter Visit Diagnoses Not on filedocumented in this encounter Care Teams Team MemberRelationshipSpecialtyStart DateEnd Date Tulio Madrid MD PCP - GeneralFamily Medicine01/12/24documented as of this encounter
--- OUTSIDE RECORDS SUMMARY | 2025-05-16 08:19 | XMS_ITS | Encounter Summary ---
Author Organization [facility] Address [address] [place] [address] Care Team Providers Care Inventory Control Analyst Name Role Phone Tulio Madrid MD Primary Care Provider [phone] Tulio Madrid MD Unavailable Tulio Madrid MD Primary Care Provider [phone] Encounter Details DateTypeDepartmentCare Team (Latest Contact Info)Yibuglgbwqb52/23/2023Clinisync Result Encounter [facility] External Department Unsolicited Provider, Generic External Data Social History Tobacco UseTypesPacks/DayYears UsedDateSmoking Tobacco: NeverSmokeless Tobacco: NeverSex and Gender InformationValueDate RecordedSex Assigned at BirthNot on fileLegal JbhQhee2409/25/2022 7:24 PM EDTGender IdentityNot on fileSexual OrientationNot on filedocumented as of this encounter Plan of Treatment Not on file documented as of this encounter Procedures Procedure NamePriorityDate/TimeAssociated DiagnosisCommentsCT FOOT LT WO CON 07/05/2023 1:52 AM EST documented in this encounter Results * CT FOOT LT WO CON (07/05/2023 1:52 AM EST)Anatomical RegionLateralityModality OtherSpecimen (Source)Anatomical Location / LateralityCollection Method / VolumeCollection TimeReceived Time07/05/2023 1:52 AM EST Narrative 07/05/2023 1:54 AM EST [facility] ?[address] ? [place] [address] ? CT Scan Report ? Signed ? Patient: CORNELIA,WARNER C ?MR#: [id number] ?? : 1955 ?Acct:[id number] ?? Age/Sex: 67 / M ?ADM Date: 12/22/23 ?? Loc: CT ? Attending Dr: James Raya D.P.M. ? Ordering Physician: James Raya D.P.M. ?? Date of Service: 07/04/23 ?? Procedure(s): CT foot LT wo con ?? Accession Number(s): [id number] ? cc: Tulio Madrid M.D. ? [facility] ? [address] ? [place] [address] ? Patient Name: ?? WARNER Farrar CORNELIA ? MRN: [facility]:[id number] ? date: 1955 ?Sex: M ?? Assigned Patient Location: CT ?? Current Patient Location: ? Accession/Order Number: [id number] ?? Exam Date: 07/04/2023 ??10:18 ?Report Date: 07/05/2023 ??01:52 ? At the request of: ?? JAMES ??RAY ? Procedure: ??CT foot LT wo con ? EXAMINATION: CT foot LT wo con ? HISTORY: Hallux Rigidus, Broken Hardware, Non Union ? COMPARISON: XR foot left 07/02/2023 ? TECHNIQUE: Multi-planar CT images were created without and/or with IV contrast ? according to examination type. Dose reduction techniques were achieved by ?? using ?? automated exposure control and/or adjustment of mA and/or kV according to ?? patient size and/or use of iterative reconstruction technique. ? FINDINGS: ?? BONES: Prior mechanical fusion of the first metatarsophalangeal joint with ?? subsequent fracture of the dorsal plate at the level of the joint. One ?? millimeter step off between the proximal and distal aspect of the plate. No ?? fracture of the screws or appreciable loosening. Moderate degenerative changes ? of the interphalangeal joint of the first toe. ?? SOFT TISSUES: No visible soft tissue swelling. ?? EFFUSION: None visible. ?? OTHER: Negative. ? CT/CT foot LT wo con ?? IMPRESSION: ? 1. Fracture of the dorsal plate placed for fusion of the first ?? metatarsophalangeal joint. No fracture of the screws. ? Electronically authenticated by: AKASH ??BIB ?? Date: 07/05/2023 ??01:52 ? Dictated By: ?Akash Kenny M.D. ? Signed By: ?07/05/23 0154 ? DD/ 0152 ? TD/TT: ? M1 Armor Crewman: Procedure Note Radiology, Radiologist, - 07/05/2023 [place] [address] CT Scan Report Signed Patient: WARNER LOCKE CMR#: [id number] : 1955cct:[id number] Age/Sex: 67 / MADM Date: 07/04/23 Loc: CT Attending Dr: James Raya D.P.M. Ordering Physician: James Raya D.P.M. Date of Service: 07/04/23 Procedure(s): CT foot LT wo con Accession Number(s): [id number] cc: Tulio Madrid M.D. The [place] [address] Patient Name: WARNER LOCKE MRN: [id number] date: 1955 Sex: M Assigned Patient Location: CT Current Patient Location: Accession/Order Number: [id number] Exam Date: 07/04/2023 10:18 Report Date: 07/05/2023 01:52 At the request of: JAMES RAYA Procedure: CT foot LT wo con [...] Kenny M.D. Signed By:07/05/23153 DD/ 1 TD/TT: M1 Armor Crewman: Authorizing ProviderResult TypeResult StatusGeneric External Data Provider CLINISYNC IMAGINGFinal Result documented in this encounter Visit Diagnoses Not on filedocumented in this encounter Care Teams Team MemberRelationshipSpecialtyStart DateEnd Date Tulio Madrid MD PCP - GeneralFamily Medicine Tulio Madrid MD [address] [place] [address] [facility] Tulio Madrid MD [address] [place] [address] [facility] - [facility]01/12/24documented as of this encounter
--- OUTSIDE RECORDS SUMMARY | 2025-05-16 08:19 | XMS_ITS | Encounter Summary ---
Author Organization [facility] Address [address] [place] [address] Care Team Providers Care Engineering Design Supervisor Name Role Phone Tulio Madrid MD Primary Care Provider [phone] Tulio Madrid MD Unavailable Tulio Madrid MD Primary Care Provider [phone] Encounter Details DateTypeDepartmentCare Team (Latest Contact Info)Zrucvjffmoa97/20/2023Clinisync Result Encounter [facility] External Department Unsolicited Provider, Generic External Data Social History Tobacco UseTypesPacks/DayYears UsedDateSmoking Tobacco: NeverSmokeless Tobacco: NeverSex and Gender InformationValueDate RecordedSex Assigned at BirthNot on fileLegal GkgTscp8709/25/2022 7:24 PM EDTGender IdentityNot on fileSexual OrientationNot on filedocumented as of this encounter Plan of Treatment Not on file documented as of this encounter Procedures Procedure NamePriorityDate/TimeAssociated DiagnosisCommentsXR FOOT LT MIN 3V 07/02/2023 10:35 AM EST documented in this encounter Results * XR FOOT LT MIN 3V (07/02/2023 10:35 AM EST)Anatomical RegionLateralityModality OtherSpecimen (Source)Anatomical Location / LateralityCollection Method / VolumeCollection TimeReceived Time07/02/2023 10:35 AM EST Narrative 07/02/2023 10:38 AM EST [facility] ?[address] ? [place] [address] ?XRay Report ? Signed ? Patient: CORNELIA,CARLOS C ?MR#: [id number] ?? : 1955 ?Acct:[id number] ?? Age/Sex: 67 / M ?ADM Date: 12/20/23 ?? Loc: RAD ? Attending Dr: Tonio Raya D.P.M. ? Ordering Physician: Tonio Raya D.P.M. ?? Date of Service: 07/02/23 ?? Procedure(s): XR foot LT min 3V ?? Accession Number(s): [id number] ? cc: Tnoio Raya D.P.M.; Tulio Madrid M.D. ? [facility] ? [address] ? [place] [address] ? Patient Name: ?? CARLOS Farrar CORNELIA ? MRN: [facility]:[id number] ? date: 1955 ?Sex: M ?? Assigned Patient Location: RAD ?? Current Patient Location: RAD ?? Accession/Order Number: [id number] ?? Exam Date: 07/02/2023 ??08:44 ?Report Date: 07/02/2023 ??10:35 ? At the request of: ?? TONIO ??RAY ? Procedure: ??XR foot LT min 3V ? EXAM: XR foot LT min 3V ? HISTORY: LEFT FOOT PAIN ? COMPARISON: Left foot radiographs 12/24/2022 ? TECHNIQUE: AP, lateral, oblique radiographs of the foot labeled left ? FINDINGS: ?? Postsurgical changes of first metatarsal phalangeal joint effusion. There is a ? fracture of the surgical plate. Osteophytes at the first metatarsophalangeal ?? joint are increased from prior. No definite osseous fusion. No discrete ?? lucency ?? about the hardware. Sequela of previous surgical changes of the first proximal ? phalanx. Unchanged lateral subluxation of the distal phalanx. Osseous ?? productive changes at the first interphalangeal joint. Possible erosions along ? the first proximal phalanx. Soft tissue swelling of the first toe. Plantar and ? Achilles calcaneal enthesophytes. ? XR/XR foot LT min 3V ?? IMPRESSION: ?? 1. Fracture of the first metatarsophalangeal fusion plate. ?? 2. Soft tissue swelling of the first toe with degenerative cysts versus ?? erosions of the first proximal phalanx, correlate for signs of infection. ?? 3. Increased degenerative changes of the first metatarsophalangeal joint. ? Electronically authenticated by: VI ??MARVIN ?? Date: 07/02/2023 ??10:35 ? Dictated By: ?Tim Guerra M.D. ? Signed By: ?07/02/23 1038 ? DD/ 1035 ? TD/TT: ? Public Policy Manager: Procedure Note Radiology, Radiologist, - 07/02/2023 [place] [address] XRay Report Signed Patient: CARLOS LOCKE CMR#: [id number] : 1955cct:[id number] Age/Sex: 67 / MADM Date: 07/02/23 Loc: RAD Attending Dr: Tonio Raya D.P.M. Ordering Physician: Tonio Raya D.P.M. Date of Service: 07/02/23 Procedure(s): XR foot LT min 3V Accession Number(s): [id number] cc: Tonio Raya D.P.M.; Tulio Madrid M.D. The [place] [id number] Patient Name: CARLOS LOCKE MRN: [facility]:[id number] date: 1955 Sex: M Assigned Patient Location: [facility] Current Patient Location: [facility] Accession/Order Number: [id number] Exam Date: 07/02/2023 08:44 Report Date: 07/02/2023 [...] M.D. Signed By:07/02/23 1038 DD/ 1035 TD/TT: Public Policy Manager: Authorizing ProviderResult TypeResult StatusGeneric External Data Provider CLINISYNC IMAGINGFinal Result documented in this encounter Visit Diagnoses Not on filedocumented in this encounter Care Teams Team MemberRelationshipSpecialtyStart DateEnd Date Tulio Madrid MD PCP - GeneralFamily Medicine Tulio Madrid MD [address] [place] [address] PCP - [facility]04/13/2311 Tulio Madrid MD [address] [place] [address] PCP - GeneralFamily Medicine01/12/24documented as of this encounter
--- OUTSIDE RECORDS SUMMARY | 2025-05-16 08:19 | XMS_ITS | Patient Health Record ---
Author Organization [facility] Address [address] [place] [address] Care Team Providers Care Flower Shop Manager Name Role Phone None, Unknown or Primary Care Provider Unavailab James Gutierrez Unavailable [phone] Allergies Allergen (clinical drug ingredient) Drug/Non Drug Allergy documented on EMR Reaction Allergy Type Onset Date Status oxycodone Oxycodone Unknown Drug Allergy Active Results Component Value Reference Range Notes PROF CHEM 8 (BAS METB) Reviewed date:08/24/2024 12:52:49 PM Interpretation: Performing Lab: Notes/Report: [facility] , Sodium 143 136-145 mmol/L Potassium4.73.5-5.1 mmol/GDakfutmt75000-170 mmol/LCarbon Wfzcmco08.421.0-32.0 mmol/LAnion Gap14.9Dnsbtzh85320-133 mg/dLBlood Urea Zadvyipz74.07.0-18.0 mg/dL Creatinine1.620.70-1.30 mg/dLEstimated GFR ( Shnwabh47>=60 mL/min/1.73m 2 Estimated GFR (Non- Ame43>=60 mL/min/1.73m 2BUN Creatinine Ratio17.3 Calcium7.78.5-10.1 mg/dLPerforming Lab:see noteML - [facility] LBCBC AUTO DIFF Reviewed date:08/24/2024 12:52:49 PM Interpretation: Performing Lab: Notes/Report: [facility] ,White Blood Count13.84.0-11.0 10 3/uLRed Blood Count3.504.70-6.10 10 6/uL Yayjoeakye82.514.0-18.0 g/gHRicnzzlukq30.842.0-54.0 %Mean Corpuscular Eegxxj72.4 80.0-94.0 fLMean Corpuscular Evfbolyogf99.925.9-34.0 pgMean Corpuscular HGB Conc 33.029.9-35.2 g/dLRed Cell Distribution Width13.711.0-15.0 %Platelet Tmgfi764 150-450 10 3/uLMean Platelet Volume9.29.5-13.5 fLNeutrophils Percent Auto81.1 43.0-75.0 %Lymphocytes Percent Auto8.920.5-60.0 %Monocytes Percent Auto9.11.7- 12.0 %Eosinophils Percent Auto0.10.9-7.0 %Basophils Percent Auto0.10.2-2.0 % Immature Granulocytes Pct Auto0.70.0-0.5 %Neutrophils Absolute Auto11.21.4-6.5 10 3/uLLymphocytes Absolute Auto1.21.2-3.8 10 3/uLMonocytes Absolute Auto1.30.3- 0.8 10 3/uLEosinophils Absolute Auto0.00.0-0.7 10 3/uLBasophils Absolute Auto0.0 0.0-0.1 10 3/uLImmature Granulocytes Abs Auto0.090.00-0.03 10 3/uLPerforming Lab:see noteML - The [facility] Reason For Referral No Information [...] due t o type 2 diabetes mellitus (744704915) Type 2 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) ActiveconfirmedProblemFoot ulcer due to type 2 diabetes mellitus (4030616597678) Type 2 diabetes mellitus with foot ulcer (E11.621)ActiveconfirmedProblemAcquired hallux valgus (43914267)Hallux valgus (acquired), left foot (M20.12)Active confirmedProblemAcquired hallux rigidus (7189464)Hallux rigidus, left foot (M20.22)ActiveconfirmedProblemPseudarthrosis after fusion or arthrodesis (725692238)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)Activeconfirmed ProblemPain associated with internal prosthetic device (disorder) (426483515) Pain due to internal orthopedic prosthetic devices, implants and grafts, initial encounter (T84.84XA)ActiveconfirmedProblemHistory of arthrodesis (403128561) Arthrodesis status (Z98.1)ActiveconfirmedProblemAcquired hallux rigidus (3026638)Acquired hallux rigidus of left foot (M20.22)ActiveconfirmedProblem Delayed healing of surgical wound (finding) (615783367)Delayed surgical wound healing (T81.89XA)ActiveconfirmedProblemPolyneuropathy due to type 2 diabetes mellitus (248449913)Diabetes mellitus with polyneuropathy (E11.42)Active confirmedProblemChronic foot ulcer, [...] ACCESS PPO PLUS LOCAL PLAN [address] [place] [address] [id number] Ilya Kanwal Spouse - patient is the spouse of the insured 3 [place] [id number] Part A OnlyLnace Caraballof - patient is the insured Medical (General) History Medical History History ICD Code Diabetes due to underlying condition w d iabetic neurop, unsp E08.40 High cholesterol E78.00 Gout M10.9 Peripheral neuropathy G62.9 Chronic pain G89.29 Hypertension I10 Surgical History Surgery Date(Month/Year) left 1st MPJ fusion, hallux interphalang eal joint arthroplasty 10/21/2022 back injections
--- OUTSIDE RECORDS SUMMARY | 2025-05-16 08:20 | XMS_ITS | Encounter Summary ---
Author Organization [facility] Address [address] [place] [address] Care Team Providers Care Sap Director Name Role Phone Tulio Madrid MD Primary Care Provider [phone] Tulio Madrid MD Unavailable Tulio Madrid MD Primary Care Provider [phone] Encounter Details DateTypeDepartmentCare Team (Latest Contact Info)Frvkcahjqui27/28/2024Clinisync Result Encounter [facility] External Department Unsolicited Provider, Generic External Data Social History Tobacco UseTypesPacks/DayYears UsedDateSmoking Tobacco: NeverSmokeless Tobacco: NeverSex and Gender InformationValueDate RecordedSex Assigned at BirthNot on fileLegal AehVyvu9809/25/2022 7:24 PM EDTGender IdentityNot on fileSexual OrientationNot on filedocumented as of this encounter Plan of Treatment Not on file documented as of this encounter Procedures Procedure NamePriorityDate/TimeAssociated DiagnosisCommentsXR FOOT LT MIN 3V 10/09/2023 5:50 AM EDT documented in this encounter Results * XR FOOT LT MIN 3V (10/09/2023 5:50 AM EDT)Anatomical RegionLateralityModality OtherSpecimen (Source)Anatomical Location / LateralityCollection Method / VolumeCollection TimeReceived Time10/09/2023 5:50 AM EDT Narrative 10/09/2023 5:53 AM EDT [facility] [place] [facility] ?[address] ? [place] [address] ?XRay Report ? Signed ? Patient: CORNELIA,WARNER C ?MR#: [id number] ?? : 1955 ?Acct:[id number] ?? Age/Sex: 68 / M ?ADM Date: 03/27/24 ?? Loc: EC ? Attending Dr: James Raya D.P.M. ? Ordering Physician: James Raya D.P.M. ?? Date of Service: 10/08/23 ?? Procedure(s): XR foot LT min 3V ?? Accession Number(s): [id number] ? cc: James Raya D.P.M.; Tulio Madrid M.D. ? The [facility] ? [address] ? [place] [address] ? Patient Name: ?? WARNER Farrar CORNELIA ? MRN: [facility]:[id number] ? date: 1955 ?Sex: M ?? Assigned Patient Location: EC ?? Current Patient Location: ? Accession/Order Number: [id number] ?? Exam Date: 10/08/2023 ??08:55 ?Report Date: 10/09/2023 ??05:50 ? At the request of: ?? JAMES ??RAY ? Procedure: ??XR foot LT min 3V ? PROCEDURE: XR foot LT min 3V ? HISTORY: LEFT FOOT PAIN ? COMPARISON: XR foot left 07/02/2023 ? FINDINGS: ?? BONES:Prior mechanical fusion of the first tarsal-metatarsal joints with prior ? fracture of the dorsal plate. Resection of the head of the first proximal ?? phalanx with stable irregular bony changes. ?? SOFT TISSUES:Stable soft tissue swelling of first toe. ?? EFFUSION:None visible. ?? OTHER: Negative. ? XR/XR foot LT min 3V ?? IMPRESSION: ? 1. Stable surgical changes with hardware failure at the first ?? metatarsophalangeal joint. ?? 2. Stable surgical changes and mild osseous irregularity/healing changes at ?? the ?? distal end of the first proximal phalanx. Osteomyelitis is felt less likely. ? Electronically authenticated by: AKASH ??BIB ?? Date: 10/09/2023 ??05:50 ? Dictated By: ?Akash Kenny M.D. ? Signed By: ?10/09/23 0553 ? DD/ 0550 ? TD/TT: ? Market Research Specialist: Procedure Note Radiology, Radiologist, MD - 10/09/2023 [place] [address] XRay Report Signed Patient: WARNER LOCKE CMR#: [id number] : 1955cct:[id number] Age/Sex: 68 / MADM Date: 10/08/23 Loc: EC Attending Dr: James Raya D.P.M. Ordering Physician: James Raya D.P.M. Date of Service: 10/08/23 Procedure(s): XR foot LT min 3V Accession Number(s): [id number] cc: James Raya D.P.M.; Tulio Madrid M.D. The [place] [address] Patient Name: WARNER LOCKE MRN: [id number] date: 1955 Sex: M Assigned Patient Location: Current Patient Location: Accession/Order Number: [id number] Exam Date: 10/08/2023 08:55 Report Date: 10/09/2023 05:50 At the request of: JAMES RAYA Procedure: XR foot LT min 3V [...] M.D. Signed By:10/09/23 0553 DD/ 0550 TD/TT: Market Research Specialist: Authorizing ProviderResult TypeResult StatusGeneric External Data Provider CLINISYNC IMAGINGFinal Result documented in this encounter Visit Diagnoses Not on filedocumented in this encounter Care Teams Team MemberRelationshipSpecialtyStart DateEnd Date Tulio Madrid MD PCP - GeneralFancly Medicine Tulio Madrid MD [address] [place] [address] PCP - [place]nzegeu95/1/ Tulio Madrid MD [address] [place] [address] [facility] - [facility]01/12/24documented as of this encounter
--- OUTSIDE RECORDS SUMMARY | 2025-05-16 08:20 | XMS_ITS | Encounter Summary ---
Author Organization [facility] Address [address] [place] [address] Care Team Providers Care Foley Artist Name Role Phone Tulio Madrid MD Unavailable Tulio Madrid MD Primary Care Provider [phone] Encounter Details DateTypeDepartmentCare Team (Latest Contact Info)Srwavzutldz43/05/2024Clinisync Result Encounter [facility] External Department Unsolicited Provider, Generic External Data Social History Tobacco UseTypesPacks/DayYears UsedDateSmoking Tobacco: NeverSmokeless Tobacco: NeverSex and Gender InformationValueDate RecordedSex Assigned at BirthNot on fileLegal EukNyaf1809/25/2022 7:24 PM EDTGender IdentityNot on fileSexual OrientationNot on filedocumented as of this encounter Plan of Treatment Not on file documented as of this encounter Procedures Procedure NamePriorityDate/TimeAssociated DiagnosisCommentsXR ABDOMEN 1V 05/18/2024 6:54 AM EST documented in this encounter Results * XR ABDOMEN 1V (05/18/2024 6:54 AM EST)Anatomical RegionLateralityModalityOther Specimen (Source)Anatomical Location / LateralityCollection Method / Volume Collection TimeReceived Time05/18/2024 6:54 AM EST Narrative 05/18/2024 6:56 AM EST [facility] ?[address] ? [place] [address] ?XRay Report ? Signed ? Patient: CORNELIA,CARLOS C ?MR#: [id number] ?? : 1955 ?Acct:[id number] ?? Age/Sex: 68 / M ?ADM Date: 11/04/24 ?? Loc: RAD ? Attending Dr: Liz MARTELL ? Ordering Physician: Liz Hernandez ?? Date of Service: 05/17/24 ?? Procedure(s): XR abdomen 1V ?? Accession Number(s): [id number] ? cc: Tulio Madrid M.D.; Liz Hernandez ? [facility] ? [address] ? [place] [address] ? Patient Name: ?? CARLOS LOCKE ? MRN: [facility]:[id number] ? date: 1955 ?Sex: M ?? Assigned Patient Location: RAD ?? Current Patient Location: ? Accession/Order Number: [id number] ?? Exam Date: 05/17/2024 ??08:50 ?Report Date: 05/18/2024 ??06:54 ? At the request of: ?? LIZ HERNANDEZ ? Procedure: ??XR abdomen 1V ? EXAMINATION: XR abdomen 1V ? HISTORY: Kidney Calculi ? COMPARISON: 05/27/2023 ? FINDINGS: ?? KIDNEY/URETER - RIGHT: stable nephrolithiasis measuring up to 10 mm ?? KIDNEY/URETER - LEFT: Stable nephrolithiasis measuring up to 7 mm ?? PELVIS: No visible ureteral calcifications. Any visible calcifications favor ?? phleboliths. ?? BOWEL: No abnormal dilation or deviation. ?? BONES: No acute abnormality. Moderate degenerative change ?? OTHER: Negative. No abnormal gaseous collections. ? XR/XR abdomen 1V ?? IMPRESSION: ? Stable bilateral nephrolithiasis ? Electronically authenticated by: RACHEAL ??ELY ?? Date: 05/18/2024 ??06:54 ? Dictated By: ?Racheal Graves M.D. ? Signed By: ?05/18/24 0656 ? DD/ 06 ? TD/TT: ? Vice President Of Procurement: Procedure Note Radiology, Radiologist, MD - 05/18/[address] [address] XRay Report Signed Patient: CARLOS LOCKE CMR#: [id number] : 7Acct:[id number] Age/Sex: 68 / MADM Date: 05/17/24 Loc: RAD Attending Dr: Liz MARTELL Ordering Physician: Liz Hernandez Date of Service: 05/17/24 Procedure(s): XR abdomen 1V Accession Number(s): [id number] cc: Tulio Madrid M.D.; Liz Hernandez [address] [address] Patient Name: CARLOS LOCKE MRN: [facility]:[id number] date: 1955 Sex: M Assigned Patient Location: RAD Current Patient Location: Accession/Order Number: [id number] Exam Date: 05/17/2024 08:50 Report Date: 05/18/2024 06:54 At the request of: LIZ HERNANDEZ Procedure: XR abdomen 1V EXAMINATION: XR [...] GRAVES Date: 05/18/2024 06:54 Dictated By: Racheal Garves M.D. Signed By:05/18/2456 DD/ TD/TT: Vice President Of Procurement: Authorizing ProviderResult TypeResult StatusGeneric External Data Provider CLINISYNC IMAGINGFinal Result documented in this encounter Visit Diagnoses Not on filedocumented in this encounter Care Teams Team MemberRelationshipSpecialtyStart DateEnd Date Tulio Madrid MD [address] [place] [address] FORREST - Wilfrid Fxqbfljxun21/1/ Tulio Madrid MD [address] [place] [address] [facility] - [facility]01/12/24documented as of this encounter
--- OUTSIDE RECORDS SUMMARY | 2025-05-16 08:20 | XMS_ITS | Encounter Summary ---
Author Organization [facility] Address [address] [place] [address] Care Team Providers Care Scratch Brusher Name Role Phone Tulio Madrid MD Primary Care Provider [phone] Encounter Details DateTypeDepartmentCare Team (Latest Contact Info)Vtspitfzjvw23/16/2024Clinisync Result Encounter [facility] External Department Unsolicited Provider, Generic External Data Social History Tobacco UseTypesPacks/DayYears UsedDateSmoking Tobacco: NeverSmokeless Tobacco: NeverSex and Gender InformationValueDate RecordedSex Assigned at BirthNot on fileLegal LiwQecn0109/25/2022 7:24 PM EDTGender IdentityNot on fileSexual OrientationNot on filedocumented as of this encounter Plan of Treatment Not on file documented as of this encounter Procedures Procedure NamePriorityDate/TimeAssociated DiagnosisCommentsCA ECHO DOPPLER DMWUQRBS32/16/2024 5:49 PM EST documented in this encounter Results * CA ECHO DOPPLER COMPLETE (06/28/2024 5:49 PM EST)Anatomical RegionLaterality ModalityOtherSpecimen (Source)Anatomical Location / LateralityCollection Method / VolumeCollection TimeReceived Time06/28/2024 5:49 PM EST Narrative 06/28/2024 5:50 PM EST [facility] ?[address] ? [place] [address] ? Cardiology Report ? Signed ? Patient: CORNELIA,WARNER C ?MR#: [id number] ?? : 1955 ?Acct:[id number] ?? Age/Sex: 68 / M ?ADM Date: 12/16/24 ?? Loc: CARD ? Attending Dr: Ken Mercer M.D. ? Ordering Physician: Ken Mercer M.D. ?? Date of Service: 06/28/24 ?? Procedure(s): CA echo doppler complete ?? Accession Number(s): [id number] ? cc: Ken Mercer M.D.; Tulio Madrid M.D. ? Patient Name: ? WARNER CORNELIA ? MR#: [id number] ? : 1955 ? Exam Date: 06/28/2024 ?? Ordering Doctor: DR Ken Mercer M.D. ? ECHOCARDIOGRAM REPORT ? PROCEDURE: ? CA ECHO DOPPLER COMPLETE ? INDICATIONS: ? Hypertension ? COMPARISON: ? None. ? DESCRIPTION: ? COMPLETE ECHOCARDIOGRAM Real-time transthoracic ?? echocardiography with 2D, M-mode, spectral and color flow Doppler performed. ? QUALITY: ? Technical quality was good. ??BSA 2.52 m2 ?? LEFT VENTRICLE: ? Normal chamber size. Normal left ventricular wall ?? thickness. Global left ventricular systolic function is normal. ?? LV EF: ? Estimated left ventricular ejection fraction is 55%. ?? DIASTOLIC: ? Normal diastolic function. ?? ATRIAL SEPTUM: ? LEFT ATRIUM: ? Normal chamber size. ?? RIGHT ATRIUM: ? Normal chamber size. ?? RIGHT VENTRICLE: ? Normal chamber size. Normal right ventricular systolic ?? function. ? TRICUSPID VALVE: ? Normal mobility and thickness. No stenosis with trivial ?? regurgitation. No evidence of pulmonary hypertension. RVSP 25 mmHg ? MITRAL VALVE: ? Normal mobility and thickness. ?? No evidence of mitral valve ?? stenosis. ??There is no mitral annular calcification. Trivial mitral ?? regurgitation. ? AORTIC VALVE: ? Normal trileaflet appearance. Mildly calcified aortic valve. ?? Normal leaflet mobility. ??No evidence of aortic valve stenosis. No aortic ?? regurgitation. ? AORTIC ROOT: ? Normal diameter and appearance. ??Normal size ascending aorta ?? measuring 3.6 cm. ? PULMONIC VALVE: ? Normal thickness and mobility. No stenosis. Trivial ?? regurgitation. ? PERICARDIUM: ? No evidence of pericardial effusion. ? IVC: ? Collapses with inspirations. Normal size. ? PLEURA: ? CONCLUSION: ? 1. Normal left ventricular size and systolic function. ??LVEF is 55%. ?? 2. Normal right ventricular size and systolic function. ?? 3. No significant valvular dysfunction. ?? 4. Normal right-sided pressures. ? Adult Echocardiography Procedure Report ?? Left Ventricle ?? LVEDD (3.7 - 5.6 cm): ? 5.14 cm ?? LVESD (2.2 - 4.0 cm): ? 3.54 cm ?? LVIVS thickness (0.6 - 1.2 cm): ? 0.92 cm ?? LVPW thickness (0.5 - 1.0 cm): ? 1.07 cm ?? e': ? 0.12 m/s ?? E - e': ? 4.52 ?? LVOT Max Gradient: ? 3.24 mm[Hg] ?? LVOT Area (cm2): ? 0.90 m/s ?? Peak Velocity (LVOT): ? 0.90 m/s ?? Mean Velocity (LVOT): ? 0.65 m/s ?? LVOT Diameter ? 2.24 cm ?? Left Ventricular Ejection Fraction: ? 55 % ?? Left Atrium ?? LA Volume Index (2D A2C): ? 31.47 ml/m2 ?? Left Atrium Systolic Dimension: ? 3.20 cm ?? Mitral Valve ?? MV E to A Ratio: ? 0.95, 0.89 ?? Mitral Valve A-Wave Peak Velocity: ? 0.57 m/s ?? Mitral Valve E-Wave Peak Velocity: ? 0.52 m/s ?? Right Ventricle ?? RV Internal Diastolic Dimension: ? 3.92 cm ?? Aorta ?? AO Root Diam: ? 3.77 cm ?? Ascending Ao Diam: ? 3.62 cm ?? Aortic Valve ?? AoV Area (Peak Jose): ? 2.84 cm2, 2.84 cm2 ?? AoV Area (VTI): ? 2.98 cm2, 2.98 cm2 ?? Peak Velocity(Antegrade Flow): ? 1.25 m/s ?? Peak Gradient(Antegrade Flow): ? 6.20 mm[Hg] ?? Mean Velocity(Antegrade Flow): ? 0.87 m/s ?? Mean Gradient(Antegrade Flow): ? 3.45 mm[Hg] ?? Velocity Time Integral: ? 23.09 cm ?? Tricuspid Valve ?? Peak Velocity (Regurgitant Flow): ? 2.26 m/s, 2.35 m/s, 2.25 m/s ?? Pulmonic Valve ?? Mean Gradient: ? 2.67 mm[Hg], 2.85 mm[Hg] ?? Mean Velocity: ? 0.79 m/s, 0.79 m/s ?? Peak Velocity: ? 1.09 m/s ?? Peak Gradient: ? 3.96 mm[Hg], 5.58 mm[Hg] ?? Right Atrium ?? Right Atrium Systolic Pressure: ? 56.64 ml, 56.64 ml ? Dictated by: Scout Mcmanus M.D. on 06/28/2024 at 17:42 ? Approved by: Scout Mcmanus M.D. on 06/28/2024 at 17:49 ? Dictated By: ?SCOUT MCMANUS ? Signed By: ?06/28/24 1750 ? DD/ 1749 ? TD/TT: ? Stenographer Secretary: Procedure Note Radiology, Radiologist, MD - 06/28/[address] [address] Cardiology Report Signed Patient: WARNER LOCKE CMR#: [id number] : 7Acct:[id number] Age/Sex: 68 / MADM Date: 06/28/24 Loc: CARD Attending Dr: Ken Mercer M.D. Ordering Physician: Ken Mercer M.D. Date of Service: 06/28/24 Procedure(s): CA echo doppler complete Accession Number(s): [id number] cc: Ken Mercer M.D.; Tulio Madrid M.D. Patient Name: WARNER LOCKE MR#: [id number] : 1955 Exam Date: 06/28/2024 Ordering Doctor: [...] Pressure: 56.64 ml, 56.64 ml Dictated by: Scout Mcmanus M.D. on 06/28/2024 at 17:42 Approved by: Scout Mcmanus M.D. on 06/28/2024 at 17:49 Dictated By: SCOUT MCMANUS Signed By:06/28/24 3127 DD/ 3093 TD/TT: Stenographer Secretary: Authorizing ProviderResult TypeResult StatusGeneric External Data Provider CLINISYNC IMAGINGFinal Result documented in this encounter Visit Diagnoses Not on filedocumented in this encounter Care Teams Team MemberRelationshipSpecialtyStart DateEnd Date Tulio Madrid MD PCP - GeneralFamily Medicine01/12/24documented as of this encounter
--- OUTSIDE RECORDS SUMMARY | 2025-05-16 08:20 | XMS_ITS | Encounter Summary ---
Author Organization [facility] Address [address] [place] [address] Care Team Providers Care Tile Mason Name Role Phone Tulio Madrid MD Primary Care Provider [phone] Encounter Details DateTypeDepartmentCare Team (Latest Contact Info)Scpaztwhulq94/07/2025linisync Result Encounter [facility] External Department Unsolicited Provider, Generic External Data Social History Tobacco UseTypesPacks/DayYears UsedDateSmoking Tobacco: NeverSmokeless Tobacco: NeverSex and Gender InformationValueDate RecordedSex Assigned at BirthNot on fileLegal MqiXzib3809/25/2022 7:24 PM EDTGender IdentityNot on fileSexual OrientationNot on filedocumented as of this encounter Plan of Treatment Not on file documented as of this encounter Procedures Procedure NamePriorityDate/TimeAssociated DiagnosisCommentsXR CHEST 2V07/20/2024 5:05 PM EST documented in this encounter Results * XR CHEST 2V (07/20/2024 5:05 PM EST)Anatomical RegionLateralityModalityOther Specimen (Source)Anatomical Location / LateralityCollection Method / Volume Collection TimeReceived Time07/20/2024 5:05 PM EST Narrative 07/20/2024 5:07 PM EST [facility] ?[address] ? [place] [address] ?XRay Report ? Signed ? Patient: CORNELIA,WARNER Farrar ?MR#: [id number] ?? : 1955 ?Acct:[id number] ?? Age/Sex: 68 / M ?ADM Date: 07/20/ ?? Loc: PST ? Attending Dr: Daniele Valencia M.D. ? Ordering Physician: Daniele Valencia M.D. ?? Date of Service: 07/20/24 ?? Procedure(s): XR chest 2V ?? Accession Number(s): [id number] ? cc: Daniele Valencia M.D.; Tulio Madrid M.D. ? [facility] ? [address] ? [place] [address] ? Patient Name: ?? WARNER Farrar CORNELIA ? MRN: [facility]:[id number] ? date: 1955 ?Sex: M ?? Assigned Patient Location: [facility] ?? Current Patient Location: LAB ?? Accession/Order Number: [id number] ?? Exam Date: 07/20/2024 ??10:06 ?Report Date: 07/20/2024 ??17:05 ? At the request of: ?? DANIELE VALENCIA ? Procedure: ??XR chest 2V ? EXAM: XR chest 2V ? HISTORY: Preop exam ? COMPARISON: None. ? TECHNIQUE: 2 views ? FINDINGS: The heart and mediastinum are unremarkable lungs are clear. ? XR/XR chest 2V ?? IMPRESSION: ?? No acute cardiopulmonary pathology. ? Electronically authenticated by: Te ACOSTA ??RICK ?? Date: 07/20/2024 ??17:05 ? Dictated By: ?Te Mcarthur M.D. ? Signed By: ?07/20/24 1707 ? DD/ 04 ? TD/TT: ? Compressor Service Technician: Procedure Note Radiology, Radiologist, - 07/20/2024 [place] [address] XRay Report Signed Patient: WARNER LOCKE CMR#: [id number] : 1955cct:[id number] Age/Sex: 68 / MADM Date: 07/20/24 Loc: PST Attending Dr: Daniele Valencia M.D. Ordering Physician: Daniele Valencia M.D. Date of Service: 07/20/24 Procedure(s): XR chest 2V Accession Number(s): [id number] cc: Daniele Valencia M.D.; Tulio Madrid M.D. The [address] [address] Patient Name: WARNER LOCKE MRN: [facility]:[id number] date: 1955 Sex: M Assigned Patient Location: [facility] Current Patient Location: LAB Accession/Order Number: [id number] Exam Date: 07/20/2024 10:06 Report Date: 07/20/2024 [...] Mcarthur M.D. Signed By:07/20/241706 DD/ 04 TD/TT: Compressor Service Technician: Authorizing ProviderResult TypeResult StatusGeneric External Data Provider CLINISYNC IMAGINGFinal Result documented in this encounter Visit Diagnoses Not on filedocumented in this encounter Care Teams Team MemberRelationshipSpecialtyStart DateEnd Date Tulio Madrid MD PCP - GeneralFamily Medicine01/12/24documented as of this encounter
--- OUTSIDE RECORDS SUMMARY | 2025-05-16 08:20 | XMS_ITS | Encounter Summary ---
Author Organization [facility] Address [address] [place] [address] Care Team Providers Care Handtools Repairer Name Role Phone Tulio Madrid MD Unavailable Tulio Madrid MD Primary Care Provider [phone] Encounter Details DateTypeDepartmentCare Team (Latest Contact Info)Rsybghaztqk10/01/2024Clinisync Result Encounter [facility] External Department Unsolicited Provider, Generic External Data Social History Tobacco UseTypesPacks/DayYears UsedDateSmoking Tobacco: NeverSmokeless Tobacco: NeverSex and Gender InformationValueDate RecordedSex Assigned at BirthNot on fileLegal AazUhql0809/25/2022 7:24 PM EDTGender IdentityNot on fileSexual OrientationNot on filedocumented as of this encounter Plan of Treatment Not on file documented as of this encounter Procedures Procedure NamePriorityDate/TimeAssociated DiagnosisCommentsXR FOOT LT MIN 3V 02/12/2024 6:24 AM EDT documented in this encounter Results * XR FOOT LT MIN 3V (02/12/2024 6:24 AM EDT)Anatomical RegionLateralityModality OtherSpecimen (Source)Anatomical Location / LateralityCollection Method / VolumeCollection TimeReceived Time02/12/2024 6:24 AM EDT Narrative 02/12/2024 6:26 AM EDT [facility] ?[address] ? [place] [address] ?XRay Report ? Signed ? Patient: CORNELIA,WARNER C ?MR#: [id number] ?? : 1955 ?Acct:[id number] ?? Age/Sex: 68 / M ?ADM Date: 07/31/24 ?? Loc: EC ? Attending Dr: James Raya D.P.M. ? Ordering Physician: James Raya D.P.M. ?? Date of Service: 02/11/24 ?? Procedure(s): XR foot LT min 3V ?? Accession Number(s): [id number] ? cc: James Raya D.P.M.; Tulio Madrid M.D. ? [facility] ? [address] ? [place] [address] ? Patient Name: ?? WARNER Farrar CORNELIA ? MRN: [facility]:[id number] ? date: 1955 ?Sex: M ?? Assigned Patient Location: EC ?? Current Patient Location: ? Accession/Order Number: [id number] ?? Exam Date: 02/11/2024 ??10:36 ?Report Date: 02/12/2024 ??06:24 ? At the request of: ?? JAMES ??RAY ? Procedure: ??XR foot LT min 3V ? PROCEDURE: XR foot LT min 3V ? HISTORY: LEFT FOOT PAIN ? COMPARISON: XR foot left 10/08/2023 ? FINDINGS: ?? BONES:Prior mechanical fusion of the first metatarsophalangeal joint via ?? dorsal ?? plate and screws. Known fracture of metallic plate with distal fragment ?? displaced 6 mm caudal to the proximal portion of the plate. Stable surgical ?? changes/postoperative changes of distal end of first proximal phalanx. ?? Flattening of plantar arch. ?? SOFT TISSUES:No visible soft tissue swelling. ?? EFFUSION:None visible. ?? OTHER: Negative. ? XR/XR foot LT min 3V ?? IMPRESSION: ? 1. Stable fracture of hardware involving prior fusion of the first ?? metatarsophalangeal joint. ? Electronically authenticated by: AKASH ??BIB ?? Date: 02/12/2024 ??06:24 ? Dictated By: ?Akash Kenny M.D. ? Signed By: ?02/12/24625 ? DD/ 3 ? TD/TT: ? Signal Technician: Procedure Note Radiology, Radiologist, MD - 02/12/[address] [address] XRay Report Signed Patient: WARNER LOCKE CMR#: [id number] : 1955cct:[id number] Age/Sex: 68 / MADM Date: 02/11/24 Loc: EC Attending Dr: James Raya D.P.M. Ordering Physician: James Raya D.P.M. Date of Service: 02/11/24 Procedure(s): XR foot LT min 3V Accession Number(s): [id number] cc: James Raya D.P.M.; Tulio Madrid M.D. [place] [address] Patient Name: WARNER LOCKE MRN: [facility]:[id number] date: 1955 Sex: M Assigned Patient Location: EC Current Patient Location: Accession/Order Number: [id number] Exam Date: 02/11/2024 10:36 Report Date: 02/12/2024 06:24 At the request of: JAMES RAYA Procedure: [...] Kenny M.D. Signed By:02/12/24625 DD/ 3 TD/TT: Signal Technician: Authorizing ProviderResult TypeResult StatusGeneric External Data Provider CLINISYNC IMAGINGFinal Result documented in this encounter Visit Diagnoses Not on filedocumented in this encounter Care Teams Team MemberRelationshipSpecialtyStart DateEnd Date Tulio Madrid MD [address] [place] [address] [facility] Tulio Madrid MD [address] [place] [address] [facility] - [facility]/12/24documented as of this encounter
--- OUTSIDE RECORDS SUMMARY | 2025-05-16 08:20 | XMS_ITS | Clinical Summary ---
Author Organization [facility] Healthcare Address [address] [place] [address] Care Team Providers Care Supervisor Communications And Signals Name Role Phone Tulio Madrid MD Primary Care Provider [phone] Allergies Active AllergyReactionsCriticalityNoted WaafUektozukZyxplhdxr01/18/2023 Other Reaction(s): Hyperactive behavior, Other Oxycodone-AcetaminophenItching,AypeXay1507/31/2022 Medications MedicationSigDispense QuantityRefillsLast FilledStart DateEnd DateStatus allopurinol [...] without long-term current use of insulin ([facility])TAKE 1 TABLET BY MOUTH EVERY DAY 90 [...] without long-term current use of insulin ([facility])INJECT 2 MG SUBCUTANEOUSLY WEEKLY 9 mL 5Active febuxostat (Uloric) 40 MG tablet Indications:Type 2 diabetes mellitus with hyperglycemia, without long-term current use of insulin (HCC),Morbid obesity (CMS-HCC),Polyneuropathy due to type 2 diabetes mellitus ([facility])Take 1 tablet (40 mg) by mouth Daily [...] Indications:Polyneuropathy due to type 2 diabetes mellitus ([facility])TAKE 1 CAPSULE BY MOUTH IN THE MORNING, EVENING AND BEFORE BEDTIME 270 capsule 5Active Active Problems ProblemNoted DateDiagnosed DateEncounter for long-term current use of medication 08/05/2024Screening PSA (prostate specific antigen)08/05/2024Encounter for preoperative ggtyuazgij38/02/2025 Assessment & Plan (07/15/2024 9:48 AM EST): Able to proceed with upcoming surgery at low risk for complications. History of DM but controlled with medication. No CAD or HTN. Not having chest pain or palpitations. Recommend routine PAT. Seasonal allergic rhinitis due to jgsnyd8801/12/2024 Assessment & Plan (01/12/2025 9:44 AM EDT): Symptoms controlled with medication and continue. Assessment & Plan (01/12/2024 9:44 AM EDT): Symptoms controlled with medication and continue. Primary buyrkaqz78/01/2024 Assessment & Plan (01/12/2025 9:43 AM EDT): [...] and continue neurontin. Primary osteoarthritis of knees, jynwckedi53/10/2024nnual physical exam 07/23/2023 Assessment & Plan (07/15/2024 [...] daily Aspirin therapy. DDD (degenerative disc disease), ejtrrj9906/26/2023 Assessment & Plan (01/12/2025 9:43 AM EDT): Pain stable and follow with pain management. Assessment & Plan (01/12/2024 9:44 AM EDT): Pain stable and follow with pain management. Drfyilngpodf39/14/2023 Assessment & Plan (07/15/2024 9:51 AM EST): Due for labs. Arthritis, gouty108/27/2022 Assessment & Plan (01/12/2025 9:43 AM EDT): No flares and continue allopurinol. Assessment & Plan (01/12/2024 9:43 AM EDT): No flares and continue allopurinol. Male pabmfqcwunat08/14/2023NAFL (nonalcoholic fatty liver)06/26/2023lass 2 severe obesity due [...] with hyperglycemia, without long-term current use of ufykmmu7506/26/2023 Assessment & Plan (01/12/2025 9:44 AM EDT): [...] Stick to ADA diet and limit carbs. Duexrbsjttgk52/03/2023ge-related nuclear cataract of both eyes03/10/2023 Resolved Problems ProblemNoted DateDiagnosed DateResolved DateAbscess of abdominal wall10/13/2024 01/12/2025 Assessment & Plan (10/13/2024 1:51 PM EDT): Recent abscess but improved after drainage. Use heat PRN. Treat with bactrim. Cover with neosporin. Encounters DateTypeDepartmentCare XhaqSkwjcitigzo03/24/2025Refill [facility] [address] [place] [address] Tulio Madrid MD 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)from Last 3 Months Family History Medical HistoryRelationNameCommentsCancerFatherDiabetesFatherHypertensionFather DiabetesMotherHypertensionMotherRelationNameStatusCommentsFatherMother Social History Tobacco UseTypesPacks/DayYears UsedDateSmoking Tobacco: NeverSmokeless Tobacco: Never Tobacco Cessation:Counseling Given: Not Answered Sex and Gender InformationValueDate RecordedSex Assigned at BirthNot on file Legal IfwPzre8709/25/2022 7:24 PM EDTGender IdentityNot on fileSexual Orientation Not on file Last Filed Vital Signs Vital SignReadingTime TakenCommentsBlood Hhymprom545/8407 8:53 AM EDT Ijgbd719801/12/2025 8:53 AM PZFWoqbwmkonaf06.2 ??C (97.1 ??F)01/12/2025 8:53 AM EDTRespiratory Eoyb031301/12/2025 8:53 AM EDTOxygen Bnhardbqiz71%01/12/2025 8:53 AM EDTInhaled Oxygen Concentration--Xvtryz524 kg (293 lb)01/12/2025 8:53 AM EDT Puuswu363 cm (6' 2 )01/12/2025 8:53 AM EDTBody Mass Index37.62001/12/2025 8:53 AM EDT Plan of Treatment Health MaintenanceDue DateLast DoneCommentsCT Wovjpuexpzre80/09/1957FIT-DNA 1956FIT1956FOBT1956 5732Dvgpjxecyrxit52/09/1957DTaP/Tdap/Td Vaccines (1 - Tdap)1963Pneumococcal Vaccine: 65+ Years (2 of 2 - PCV) OVID-19 Vaccine (6 - season)509/, 04/20/2023, 04/20/2023, Additional history existsInfluenza Vaccine (#1) /01/2024, 04/12/2023, 04/17/2022, Additional history exists Wyqbhcdjxqv01/02/202701/08/2016Colorectal Cancer Aawuwxvnx12/02/2027HIB Vaccines Aged OutNo longer eligible based on patient's age to complete this topicHPV VaccinesAged OutNo longer eligible based on patient's age to complete this topic Hepatitis A VaccinesAged OutNo longer eligible based on patient's age to complete this topicHepatitis B VaccinesAged OutNo longer eligible based on patient's age to complete this topicIPV VaccinesAged OutNo longer eligible based on patient's age to complete this topicMeningococcal B VaccineAged OutNo longer eligible based on patient's age to complete this topicMeningococcal VaccineAged OutNo longer eligible based on patient's age to complete this topicRotavirus VaccinesAged OutNo longer eligible based on patient's age to complete this topic Insurance Care Teams Team MemberRelationshipSpecialtyStart DateEnd Date Tulio Madrid MD [facility]CP - [facility]01/[facility]/24
--- OUTSIDE RECORDS SUMMARY | 2025-05-16 08:21 | XMS_ITS | CCD ---
Author Organization [facility] Care Team Providers Care Feather Sawyer Name Role Phone Dominikjamaal Racheal Unavailable Ant Alejandra Unavailable BENTLEY MACK Attending Unavailable ELY, DR RACHEAL Ayala Admitting Unavailable WEST, DR RACHEAL Ayala Consulting Unavailable WEST, DR RACHEAL Ayaal Attending Unavailable BERRIOS ., DR FELISA Juarez Primary Care Unavailable BIB, DR ELIN Oliva Consulting Unavailable BERRIOS ., DR FELISA Juarez Primary Care Unavailable BERRIOS ., DR FELISA Juarez Attending Unavailable BERRIOS ., DR FELISA Juarez Consulting Unavailable BERRIOS ., DR FELISA Juarez Admitting Unavailable ELTAHAWAntonio, DR SALCIDO Consulting Unavailable BERRIOS ., DR FELISA Juarez Primary Care Unavailable ELTAHAWAnotnio, DR SALCIDO Attending Unavailable ELTAJASMYNE, DR SALCIDO [...] Consulting Unavailable HIGHLANDER, PETER D Consulting Unavailable NLEIDA ., CECY BLACKMON Consulting Unavailable JENNIFER II, [...] ., DR NATHALY Main Admitting Unavailable JOHNSON ., RODRIGO Consulting Unavailable WEST, DR RACHEAL Ayala Consulting Unavailable BERRIOS ., DR FELISA Juarez Primary Care Unavailable [facility], DR STEWART Attending Unavailable [facility], DR STEWART Admitting Unavailable [facility], DR STEWART Consulting Unavailable WEST, DR RACHEAL Ayala Admitting Unavailable WEST, DR RACHEAL Ayala Consulting Unavailable WEST, DR RACHEAL Ayala Attending Unavailable BERRIOS ., DR FELISA Juarez Primary Care Unavailable [facility], DR ELIN Oliva Consulting Unavailable BERRIOS ., [...] Care Physician TULIO RUGGIERO Primary Care Physician [phone] Tulio Ruggiero MD Unavailable Tulio Ruggiero MD Primary Care Provider Daniele Valencia DO Attending UnavailDaniele Tsai DO Attending UnavailTULIO Etienne Attending Unavailable MONIK, UTLIO Attending Unavailable MONIK, TULIO Attending Unavailable Tulio Ruggiero MD Primary Care Provider DANIELE VALENCIA Referring Unavailable TULIO RUGGIERO Primary Care UnavailVika Siddiqi Attending Unavailable LIZ ABREU Attending Unavailable Tulio Ruggiero MD Unavailable Tulio Ruggiero MD Primary Care Provider [phone] Tulio Ruggiero MD Primary Care Provider Tulio Ruggiero MD Primary Care Provider [phone] Allergies Allergy ClassificationReported Allergen(s)Allergy TypeDate of OnsetReaction(s) Facility (3 sources)Acetaminophen / oxyCODONEDrug AllergyUnknowMineral Area Regional [facility] Other (20 sources)Acetaminophen / oxyCODONE; Translations: [OXYCODONE-ACETAMINOPHEN] Drug Kmlujmj43-88-6690Yteqzrp, RashUnPremier [facility] Repository (20 sources)oxyCODONE; Translations: [OXYCODONE]Drug Piovhhu12-48-1569 Hyperactive behavior (finding)[facility] Repository (1 source)Acetaminophen / oxyCODONEDrug AllergyThe [facility] Repository (1 source)oxyCODONE; Translations: [OxyCODONE Hydrochloride][facility]Cos[facility] Repository Medications Current Medications MedicationDrug Class(es)DatesSig (Normalized)Sig (Original)allopurinol 300 mg oral tablet (20 sources)Xanthine Oxidase Inhibitorallopurinol (Zyloprim) 300 MG tablet 1 (one) time each day at the same time. Activeatorvastatin 20 mg oral tablet (20 sources)HMG-CoA Reductase InhibitorStart: 44-87-2140lecw 1 tablet by mouth at bedtimeatorvastatin (Lipitor) 20 MG tablet Indications: Dyslipidemia Take 1 tablet (20 mg) by mouth at bedtime 90 tablet 3 09/30/2023 ActiveAtorvastatin Calcium Activebaclofen 10 mg oral tablet (20 sources)gamma-Aminobutyric Acid-ergic AgonistStart: 29-28-3386npwq 1 tablet by mouth at bedtimebaclofen 10 mg Tab 10 mg = 1 tab(s), Oral, Bedtime, Refills(s) 0, Muscle pain Start Date: 11/17/20 Status: Orderedtake 1 tablet by mouth at bedtimebaclofen (Lioresal) 20 MG tablet Take 1 tablet by mouth at bedtime. 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) , Type 2 diabetes mellitus with hyperglycemia, without long-term current use of insulin (CMS/HCC) TAKE 1 TABLET BY MOUTH THREE TIMES A DAY NEEDED FOR GOUT 60 tablet 3 08/06/2023 ActiveColchicine Activecyclobenzaprine hydrochloride 10 mg oral tablet (2 sources)Muscle RelaxantStart: 73-82-4679iuimfqxugpxynvq 10 mg Tab Refills(s) 0 Start Date: 11/04/23 Status: OrdereddiazePAM 10 mg oral tablet (20 sources)BenzodiazepinediazePAM (Valium) 10 MG tablet Take by mouth every 8 (eight) hours if needed Activediclofenac sodium 50 mg delayed release oral tablet (20 sources)Nonsteroidal Anti-inflammatory DrugStart: 60-80-7694eifprjnwer sodium 50 mg Oral EC Tab Refills(s) 0 Start Date: 11/04/23 Status: Ordered febuxostat 40 mg oral tablet (20 sources)Xanthine Oxidase InhibitorStart: 62-00-4251sxvdlghyjj (Uloric) 40 MG tablet Indications: Type 2 diabetes mellitus with hyperglycemia, without long- term current use of insulin (HCC) , Morbid obesity (CMS-HCC) , 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) Take 1 tablet (40 mg) by mouth Daily 90 tablet 3 11/03/2024 ActiveStart: 04-25-2020 End: 08-86-6666ffdhnnixvm (Uloric) 40 MG tablet Indications: Morbid obesity (CMS/HCC) , Polyneuropathy due to type2 diabetes mellitus (CMS/HCC) , Type 2 diabetes mellitus with hyperglycemia, without long-term current use of insulin (CMS/HCC) TAKE 1 TABLET BY MOUTH EVERY DAY 90 tablet 3 08/09/2024 Active Febuxostat Activegabapentin 300 mg oral capsule (20 sources)Anti-epileptic AgentStart: 47-58-8215nalt 1 capsule by mouth at bedtimegabapentin (Neurontin) 300 MG capsule Indications: 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) TAKE 1 CAPSULE BY MOUTH IN THE MORNING, EVENING AND BEFORE BEDTIME 270 capsule 03/07/2025 ActiveStart: 11-15-2020 End: 25-53-5022yqte 1 capsule by mouth in the morning, [...] oral tablet (20 sources)Angiotensin Converting Enzyme InhibitorStart: 13-29-3904anlzgxaoad 5 MG tablet Indications: Morbid obesity (CMS-HCC) , 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) , Type 2 diabetes mellitus with hyperglycemia, without long-term current use of insulin (HCC) TAKE 1 TABLET BY MOUTH EVERY DAY 90 tablet 3 06/07/2024 ActiveStart: 31-62-1831ctdtrnbqfx 5 MG tablet Indications: Morbid obesity (CMS/HCC) , 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) , Type 2 diabetes mellitus with hyperglycemia, without long-term current use ofinsulin (CMS/HCC) TAKE 1 TABLET BY MOUTH EVERY DAY 90 tablet 3 08/06/2023 ActiveLisinopril Jzgeea67 hr metFORMIN hydrochloride 500 mg extended release oral tablet (20 sources)BiguanideStart: 72-12-2085cfxSHNLDC XR (Glucophage-XR) 500 MG 24 hr tablet Indications: Morbid obesity (CMS-HCC) , 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) , Type 2 diabetes mellitus with hyperglycemia, without long-term current use of insulin (HCC) TAKE 1 TABLET BY MOUTH EVERY DAY IN THE MORNING 90 tablet 3 06/07/2024 ActiveStart: 37-74-1678rozRNNIIV XR (Glucophage- XR) 500 MG 24 hr [...] mg oral tablet (1 source)Nonsteroidal Anti-inflammatory DrugStart: 62-85-1959pyki 1 tablet by mouth twice dailynabumetone 500 mg Tab 500 mg = 1 tab(s), Oral, BID, Refills(s) 0, Arthritis Start Date: 11/17/20 Status: OrderedOzempic (3 sources)Ozempic Activeprobenecid 500 mg oral tablet (20 sources)Start: 64-37-8401pzws 1 tablet by mouth onceprobenecid (Benemid) 500 MG tablet Indications: Arthritis, gouty Take 1 tablet (500 mg) by mouth every 12 (twelve) hours 60 tablet 3 07/15/2024 Active End: 09-81-7392lrbojurxyd (Benemid) 500 MG tablet every 12 (twelve) hours. 07/15/2024 Discontinued (Reorder)take 1 tablet by mouth every twelve hours Probenecid 500 MG 1 tablet Orally Twice a day Active0.25 mg, 0.5 mg dose 1.5 ml semaglutide 1.34 mg/ml pen injector (3 sources)Start: 10-79-3190magees 0.5 mg by subcutaneous injection every week Ozempic 2 mg/1.5 mL (0.25 mg or 0.5 mg dose) subcutaneous solution 0.5 mg, SubCutaneous, qWeek, Refill(s) 0 Start Date: 04/24/21 Status: Ordered Semaglutide, 2 MG/DOSE, (Ozempic, 2 MG/DOSE,) 8 MG/3ML solution pen-injector (20 sources)Start: 28-60-7320eydibj 2 mg by subcutaneous injection every week Semaglutide, 2 MG/DOSE, (Ozempic, 2 MG/DOSE,) 8 MG/3ML solution pen-injector Indications: Type 2 diabetes mellitus with hyperglycemia, without long-term current use of insulin (HCC) INJECT 2 MG SUBCUTANEOUSLY WEEKLY 9 mL 3 10/20/2024 ActiveStart: 31-62-2877tsxize 2 mg by subcutaneous injection every week Semaglutide, 2 MG/DOSE, (Ozempic, 2 MG/DOSE,) 8 MG/3ML solution pen-injector Indications: Type 2 diabetes mellitus with hyperglycemia, without long-term current use of insulin ([facility]/HCC) INJECT 2 MG SUBCUTANEOUSLY WEEKLY 9 mL 3 10/20/2024 ActiveStart: 09-77-9101qrarki 2 mg by subcutaneous injection every weekSemaglutide, 2 MG/DOSE, (Ozempic, 2 MG/DOSE,) 8 MG/3ML solution pen-injector Indications: Type 2 diabetes mellitus with hyperglycemia, without long-term current use of insulin ([facility]) Inject 2 mg under the skin 1 (one) time per week 9 mL 3 08/26/2023 Activesulfamethoxazole 800 mg / trimethoprim 160 mg oral tablet (3 sources)Dihydrofolate Reductase Inhibitor Antibacterial, Sulfonamide AntimicrobialStart: 10-13-2024 End: 15-37-2808lezx 1 tablet by mouth once in the morningsulfamethoxazole- trimethoprim (Bactrim DS) 800-160 MG per tablet Indications: Abscess of abdominal wall Take 1 tablet by mouth in the morning and at noon for 10 days 20 tablet 10/13/2024 10/23/2024 ActiveSyringe/Needle, Disp, (B-D 3CC LUER-HERMINIO SYR 23GX1 ) 23G X 1 3 ML misc (20 sources)Start: 96-74-8054Nfnozcp/Needle, Disp, (B-D 3CC LUER-HERMINIO SYR 23GX1 ) 23G X 1 3 ML misc Indications: Male hypogonadism Inject 1 each into the shoulder, thigh, or buttocks every 14 (fourteen) days 50 each 11 10/04/2024 ActiveStart: 99-16-4639Dmfsock/Needle, Disp, (B-D 3CC LUER-HERMINIO SYR 23GX1 ) 23G X 1 3 ML misc Indications: Male hypogonadism Inject 1 each into the shoulder, thigh, or buttocks every 14 (fourteen) days 50 each 11 12/24/2023 Active tadalafil 10 mg oral tablet (1 source)Phosphodiesterase 5 InhibitorStart: 36-64-6835jodlgwdce 10 mg Tab See Instructions, PRN for erectile dysfunction, 1-2 tab(s) po 60mins prior to sexual activity. do not exceed 20mg/24hrs, # 20 tab(s), Refills(s) 3, Pharmacy: [facility]/pharmacy #[id number], 188, cm, 06/03/23 10:01:00 EST, Height/Length Dosing, 138, kg, 06/03/23 10:01:00 EST, Weight Dosing Start Date: 06/03/23 Status: Ordered1 ml testosterone cypionate 200 mg/ml injection (20 sources)AndrogenStart: 12-24-2023 End: 79-72-4105pgvufvoxicee cypionate (Depo-Testosterone) 200 MG/ML injection Indications: Male hypogonadism Inject 0.5 mL (100 mg) into the shoulder, thigh, or buttocks every 14 (fourteen) days 10 mL 2 11/09/2024 ActiveTestosterone Cypionate 200 mg/mL intramuscular solution (3 sources)Start: 33-24-4985Vwhsbklnlfgr Cypionate 200 mg/mL intramuscular solution Refills(s) 0 Start Date: 06/03/23 Status: OrderedtiZANidine 4 mg oral tablet (20 sources)Central alpha-2 Adrenergic Agonisttake 1 tablet by mouth every six hours as neededtiZANidine (Zanaflex) 4 MG tablet Take 4 mg by mouth every 6 (six) hours if needed for muscle spasms ActivetraMADol hydrochloride 50 mg oral tablet (20 sources)Opioid AgonistStart: 57-21-2341mtrOULNO 50 mg Tab Refills(s) 0 Start Date: 06/03/23 Status: OrderedtraMADol HCl ActivetraZODone hydrochloride 50 mg oral tablet (20 sources)Serotonin Reuptake InhibitorStart: 93-24-7691oesj 1 tablet by mouth at bedtimetraZODone (Desyrel) 50 MG tablet Indications: Primary insomnia Take 1 tablet (50 mg) by mouth at bedtime 30 tablet 3 12/27/2024 ActiveStart: 82-52-5808kohb 1 tablet by mouth at bedtimetraZODone (Desyrel) 50 MG tablet Indications: Primary insomnia TAKE 1 TABLET BY MOUTH AT BEDTIME 30tablet 3 06/24/2024 ActiveStart: 60-02-7185ychf 50 mg by mouth once daily at bedtime trazodone 50 mg, Oral, Once a day (at bedtime), Refills(s) 0 Start Date: 05/27/24 Status: OrderedStart: 80-88-8555mggx 1 tablet by mouth at bedtime traZODone (Desyrel) 50 MG tablet Indications: Primary insomnia Take 1 tablet (50 mg) by mouth at bedtime 30 tablet 3 02/26/2024 ActiveVitamin D3 (3 sources)Start: 43-11-4976Exjlvwf D3 50,000 International_Unit, BID, Refills(s) 0, Prophylaxis Start Date: 04/25/20 Status: Ordered Completed/Discontinued Medications MedicationDrug Class(es)DatesSig (Normalized)Sig (Original)LORazepam 0.5 mg oral tablet (1 source)BenzodiazepineStart: 64-36-0656Jypkla 0.5 mg Tab 1 mg = 2 tab(s), Oral, Once a day (at bedtime), take one tab 30 minutes prior to leaving house for biopsy. Take second one 30 minutes prior to scheduled time of biopsy if needed, # 2 tab(s), Refills(s) 0, Pharmacy: [facility]/pharmacy #[id number], 185.4, cm, 12/05/20 11:15:00 EDT, Height/Length Dosing, 153.8, kg, 12/05/20 11:15:00 EDT, Weight Dosing Start Date: 12/06/20 Status: Orderedtriamcinolone acetonide 40 mg/ml injectable suspension (4 sources)CorticosteroidStart: 74-39-6366Goydrqg-40 May, 40 mgStart: 97-25-2404Whcahmd -40 mg Jul, 40 mg Problems Active Problems Problem ClassificationProblemDateDocumented DateEpisodic/ChronicAcquired foot deformities (5 sources)Hallux rigidus, left foot; Translations: [Hallux valgus (acquired), left foot]Onset: 33-94-8820ArjgdctPlnoet (1 source)Cough variant asthma; Translations: [COUGH VARIANT ASTHMA]Onset: 10-13-8689VggqztkReyklhmf of urinary tract (10 sources)Calculus of kidney; Translations: [Kidney stone]Onset: 05-27-2022 EpisodicCataract (20 sources)Bilateral age-related nuclear cataracts; Translations: [Age-related nuclear cataract, bilateral]Onset: 727941-79-8988EvqveyyOjskwmy kidney disease (2 sources)Chronic kidney disease stage 3A ; Translations: [Chronic kidney disease, stage 3a (CMS-HCC)]08-82-2178VvsgjbkYechyee ulcer of skin (5 sources)Non-pressure chronic ulcer of other part of left foot limited to breakdown of skin; Translations: [Non-pressure chronic ulcer of other part of left foot with unspecified severity]Onset: 30-67-7481JrkhinqQjmgulgcyiwvc of surgical procedures or medical care (5 sources)Other complications of procedures, not elsewhere classified, initial encounter; Translations: [OTH COMPLICATIONS PROC NEC INITIAL]Onset: 11-05-2022 EpisodicConditions associated with dizziness or vertigo (4 sources)Dizziness and giddiness; Translations: [DIZZINESS AND GIDDINESS] Onset: 50-35-5665JeimbwjeMohegdpwbe heart failure; nonhypertensive (4 sources)Heart failure, unspecified; Translations: [HEART FAILURE UNSPECIFIED] Onset: 27-65-4714PhzlxeyDaudjqpp mellitus with complications (20 sources)Type 2 diabetes mellitus; Translations: [Type 2 diabetes mellitus with other specified complication]Onset: 00-76-4510VszjwvtZmlrobto mellitus without complication (5 sources)Type 2 diabetes mellitus without complications; Translations: [TYPE 2 DM WITHOUT COMPLICATIONS]Onset: 61-16-5537HyogzyxErysscatu of lipid metabolism (20 sources)Mixed hyperlipidemia; Translations: [Pure hypercholesterolemia, unspecified]Onset: 39-04-9228LlwjukiQpvjuevrm of teeth and jaw (1 source)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; Translations: [ADHESIONS AND ANKYLOSIS LEFT TMJ]Onset: 66-30-0238GxeubgogAoquspkay hypertension (3 sources)Essential (primary) hypertension; Translations: [Essential (primary) hypertension]Onset: 43-49-9572BycetokOhvekupyxdahg symptoms and ill-defined conditions (3 sources)Ktohbneq78-62-1733KdsszbieXauw and other crystal arthropathies (20 sources)Gout, unspecified; Translations: [Gouty arthropathy]Onset: 93-69-2774KjgjwkcQvpdhpmtn (4 sources)Steatohepatitis; Translations: [Nonalcoholic steatohepatitis ([facility]ODGES)] Onset: 04-12-2021 Resolved: 44-66-6655LldwzflZdzyjggefas of prostate (8 sources)Benign prostatic hypertrophy with outflow obstruction; Translations: [Benign prostatic hyperplasia with lower urinary tract symptoms]Onset: 56-48-7157CzqavvpJrocaawrmraez mental health disorders (20 sources)Primary insomnia; Translations: [Primary insomnia]Onset: 01-12-2024 61-92-1581UklvcfcDsmcxpphf of unspecified nature or uncertain behavior (3 sources)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 39-77-9854ScuuazjvWxjfsglgvxtsqy (20 sources)Arthritis of right knee; Translations: [Unilateral primary osteoarthritis, right knee]Onset: 08-07-2021 Resolved: 35-14-5576LuummyyYrfkj aftercare (1 source)Patient encounter status; Translations: [Aftercare following joint replacement surgery]10-31-6924GbrkzinPhdkd aftercare (1 source)Aftercare following joint replacement surgery; Translations: [Aftercare following joint replacementsurgery]Onset: 83-46-6164XwsxtltHgjmh aftercare (1 source)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; Translations: [FDC USE ORAL HYPOGLYCEMIC DX]Onset: 09-49-8615ZxypcohiPtwnl aftercare (1 source)Other long term care phlebotomist (current) drug therapy; Translations: [OTH HEEL SEAT FITTER MACHINE CURRENT DRUG THERAPY]Onset: 71-50-1618BgikqzkuXhnjk aftercare (3 sources)Long-term current use of joqokmsjkqkny59-91-2472UsgwbrcdOepcr and unspecified benign neoplasm (3 sources)Benign neoplasm of descending uiwbi12-52-5497EroajbzbWfuyo and unspecified benign neoplasm (3 sources)Benign neoplasm of sigmoid vznza41-75-4064XegyotpfNmftr and unspecified benign neoplasm (3 sources)History of polyp of nvxeu00-02-6204GnplzyswOfiri connective tissue disease (1 source)Presence of left artificial knee joint; Translations: [Presence of left artificial knee joint]Onset: 18-84-4611KgaglhoYrysd connective tissue disease (4 sources)Pain in left foot; Translations: [PAIN IN LEFT FOOT]Onset: 12-03-2022 EpisodicOther connective tissue disease (1 source)Myalgia, other site; Translations: [MYALGIA OTHER SITE]Onset: 78-50-3131SezidnwfMylof connective tissue disease (4 sources)Arthrodesis status; Translations: [ARTHRODESIS STATUS]Onset: 04-62-1255LrbumtrcGftfd diseases of kidney and ureters (3 sources)Hydronephrosis co-occurrent and due to calculus of kidney and ureter 50-11-1994PhoqdgbxFlxkn endocrine disorders (3 sources)Testicular hypofunction; Translations: [Testicular hypofunction] Onset: 63-45-8377IdvehazRssxy endocrine disorders (20 sources)Male hypogonadism; Translations: [Testicular hypofunction]Onset: 231773-71-0426YjvizurRgpov liver diseases (3 sources)Lesion of liver; Translations: [Liver disease, unspecified]Chronic Other liver diseases (1 source)Fatty (change of) liver, not elsewhere classified; Translations: [FATTY CHANGE LIVER NEC]Onset: 40-76-0499DrzroniFzccp liver diseases (15 sources)Non-alcoholic fatty liver; Translations: [Fatty (change of) liver, not elsewhere classified]Onset: 720577-98-4765ZlqvdmdMhtyo liver diseases (20 sources)Non-alcoholic fatty liver disease without non-alcoholic steatohepatitis; Translations: [Fatty (change of) liver, not elsewhere classified]Onset: 763768-25-7419UffwgevNiwbh liver diseases (3 sources)Liver yjgd04-53-4089ChlcqfnlSiols lower respiratory disease (1 source)Personal history of pneumonia (recurrent); Translations: [PERSONAL HX OF PNEUMONIA RECURRENT]Onset: 21-18-9730DqtnickpMhygy male genital disorders (6 sources)Male erectile dysfunction, unspecified; Translations: [Erectile dysfunction]Onset: 76-06-6739UxjwhjcZnyzc nervous system disorders (1 source)Other chronic pain; Translations: [OTHER CHRONIC PAIN]Onset: 69-22-6408RuoxovxDvxna non-traumatic joint disorders (2 sources)Pain in right kneeOnset: 08-07-2021 Resolved: 26-98-0662CoevjdqbIfzhf nutritional; endocrine; and metabolic disorders (1 source)Morbid (severe) obesity due to excess calories; Translations: [MORBID SEVERE OBES D/T EXCESS RAFAEL]Onset: 09-33-0553XljhbteWczfr nutritional; endocrine; and metabolic disorders (1 source)Body mass index (BMI) 39.0-39.9, adult; Translations: [BODY MASS INDEX BMI 39.0-39.9 ADULT]Onset: 49-70-0745BzqlqvtTsuzm nutritional; endocrine; and metabolic disorders (3 sources)Body mass index 40+ - severely jueel39-72-6316FhidwvlGwlpl nutritional; endocrine; and metabolic disorders (8 sources)Morbid obesity; Translations: [Morbid (severe) obesity due to excess calories]Onset: 438296-31-0654FrzothuVjhjn nutritional; endocrine; and metabolic disorders (20 sources)Severe obesity; Translations: [Class 2 severe obesity due to excess calories with serious comorbidity and body mass index (BMI) of 37.0 to 37.9 in adult ([facility])]Onset: 930239-01-0689XnuunpxUjida skin disorders (1 source)Corns and callosities; Translations: [CORNS AND CALLOSITIES]Onset: 49-91-9940PzgqixbgPwdgi upper respiratory disease (20 sources)Allergic rhinitis due to pollen; Translations: [Allergic rhinitis due to pollen]Onset: 923924-45-1115YouxtiyJjjpp upper respiratory infections (1 source)Acute upper respiratory infection, unspecified; Translations: [ACUTE UP RESPIRATORY INFECTION UNS]Onset: 14-90-7124JdqzfayiSksjhdwmw heart disease (6 sources)Personal history of pulmonary embolism; Translations: [H/O: pulmonary embolus]Onset: 10-16-6571MqvzsiryAjywngrr codes; unclassified (1 source)Obstructive sleep apnea (adult) (pediatric); Translations: [OBSTRUCTIVE SLEEP APNEA]Onset: 12-53-7644UwryzjmPxkcfbkx codes; unclassified (20 sources)Obstructive sleep apnea syndrome; Translations: [Obstructive sleep apnea (adult) (pediatric)]Onset: 729150-54-6362CqttfntMjnnkzth codes; unclassified (1 source)Family history of cancer; Translations: [Family history of malignant neoplasm of prostate]Onset: 79-57-3581AugviljdJhccwvju codes; unclassified (3 sources)Family history of prostate zcsmee11-55-4259EnqabhnhAkxtoqbxxkn; intervertebral disc disorders; other back problems (20 sources)Spondylosis without myelopathy or radiculopathy, lumbar region; Translations: [Unspecified thoracic, thoracolumbar and lumbosacral intervertebral disc disorder]Onset: 16-51-4547JyanqjzDbgalzvzesn; intervertebral disc disorders; other back problems (7 sources)Muscle spasm of back; Translations: [Backache]Onset: 01-18-2023 EpisodicUnclassified (4 sources)LOW BACK PAIN, UNSPECIFIED; Translations: [LOW BACK PAIN, UNSPECIFIED]Onset: 68-41-9492Vhkqnaofwqrm (1 source)PERSONAL HISTORY OF COVID-19; Translations: [PERSONAL HISTORY OF COVID-19]Onset: 18-10-8022Vxpoztxgywtd (1 source)COUGH, UNSPECIFIED; Translations: [COUGH, UNSPECIFIED]Onset: 83-09-7820Sjttfyeljxxg (2 sources)Measurement grijmrr65-14-2645 Past or Other Problems Problem ClassificationProblemDateDocumented DateEpisodic/ChronicOther aftercare (4 sources)Encounter for surgical aftercare following surgery on the circulatory system; Translations: [ENC SURG AFTRCARE FLW SURG CIRC SYS]Onset: 02-18-2022 EpisodicOther aftercare (20 sources)Long-term current use of drug therapy; Translations: [Other long term care phlebotomist (current) drug therapy]Onset: 083272-29-4419FpjhlfjuUmced and unspecified benign neoplasm (1 source)Hemangioma of intra-abdominal structures; Translations: [Liver hemangioma D18.03]Onset: 04-12-2021 Resolved: 64-69-6014LecswjxkZxdui connective tissue disease (1 source)Myalgia, unspecified site; Translations: [MYALGIA UNSPECIFIED SITE] Onset: 93-07-0640SmimyeymSacdy connective tissue disease (4 sources)Other muscle spasm; Translations: [OTHER MUSCLE SPASM]Onset: 86-99-9154PiyzogugBrnlc male genital disorders (1 source)Disorder of prostate, unspecified; Translations: [DISORDER OF PROSTATE UNSPECIFIED]Onset: 60-48-5571DmbfatqzLkuuj non-traumatic joint disorders (3 sources)Pain in left knee; Translations: [PAIN IN LEFT KNEE]Onset: 08-07-2021 Resolved: 20-64-6780LfseodimGkntu screening for suspected conditions (not mental disorders or infectious disease) (20 sources)Encounter for screening for malignant neoplasm of prostate; Translations: [Screening for malignant neoplasm done]Onset: 53-60-5605Gvybkgxn Phlebitis; thrombophlebitis and thromboembolism (9 sources)Phlebitis and thrombophlebitis of superficial vessels of right lower extremity; Translations: [Phlebitis and thrombophlebitis of superficial vessels of left lower extremity]Onset: 79-21-6938KmpoyyxrItar and subcutaneous tissue infections (20 sources)Cellulitis of left toe; Translations: [Abscess of abdominal wall] Onset: 12-11-2022 Resolved: [id number] (1 source)LOW BACK PAIN, UNSPECIFIED; Translations: [LOW BACK PAIN, UNSPECIFIED] Onset: 04-58-9050Wkeegtwgaqlc (3 sources)Patient encounter ycqaau49-88-1730Yajnaezv veins of lower extremity (5 sources)Varicose veins of bilateral lower extremities with pain; Translations: [VARICOSE VNS MARIE LOW EXTREMW/PAIN]Onset: 14-36-3047Ddaeqjes Results Test NameValueInterpretationReference RangeFacilityXR KNEE LEFT (3 VIEWS)on 93-73-0704MHOF: XR KNEE LEFT (3 VIEWS) HISTORY: Aftercare [...] LEFT (3 VIEWS)Ordered By: Radiologist Radiology on 52-03-2074[facility] Work Phone: XR KNEE LEFT (3 VIEWS)on 21-28-3795IE KNEE LEFT (3 VIEWS)EXAM: XR KNEE LEFT (3 VIEWS) HISTORY: Aftercare following left knee joint replacement surgery COMPARISON: 08/23/2024 left knee IMPRESSION: FINDINGS/IMPRESSION: 1. 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 2. Severe osteoarthritic change right knee. Interpreted by: Russ Rodriguez Jr., MD Signed by: Russ Rodriguez Jr., MD 01/31/25 Final resultNormalBlanchard Valley Health System Bluffton HospitalRadiology Study observation (narrative) NOMS HealthcareXR Knee - left 3 Viewson 88-67-3186IVBHOWVR/IMPRESSION: 1. 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 2. Severe osteoarthritic change right knee. [facility] RIS CONSOLIDATEDEXAM: XR KNEE LEFT (3 VIEWS) HISTORY: Aftercare following left knee joint replacement surgery COMPARISON: 08/23/2024 left knee [facility] RIS Russ Gandara Jr., MD - 01/31/2025 EXAM: XR KNEE LEFT (3 VIEWS) HISTORY: Aftercare following left knee joint replacement surgery COMPARISON: 08/23/2024 left knee IMPRESSION: FINDINGS/IMPRESSION: 1. 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 2. Severe osteoarthritic change right knee. [facility] CampusRadiology Study observation (narrative)[facility] HospitalBeijing [employer] [facility] CampusXR Knee - left 3 ViewsOrdered By: Russ Rodriguez on 05-86-9576L[facility] Work Phone: tbh MICROALB CREAT RATIO RANDOMon 99-52-6452BVZCXITVPJ URINE ZGXLPJ601.87 mg/dL20.00 - 300.00 mg/dLNOTN HealthcareMICROALBUM CREATININE RATIO UR19.6 mg/g0.0 - 29.9 mg/gNOMS HealthcareComment on above:NO MICROALBUMINURIA 0-29 MG/G CLINICAL MICROALBUMINURIA 30-300 MG/G MACROALBUMINURIA >300 MG/G MICROALBUMIN URINE RANDOM5 mg/dLNINF - 30.0 mg/dLNOTN HealthcareCLINISYNCNCORNERSTONE SPECIALTY [facility] HealthcareMHPT PSA, DIAGNOSTICon 86-16-3621BLETWUSE SPECIFIC ANTIGEN DX1.32 ng/mLNINF - 4.00 ng/mLNOMS HealthcareCLINISYNCNOMS HealthcareXR Knee - left 1 or 2 Viewson 05-70-2855[address] [address] XRay Report Signed Patient: CARLOS CARABALLO MR#: [id number] : 1955 Acct:[id number] Age/Sex: 69 / M ADM Date: 10/04/24 Loc: EC Attending Dr: Daniele Valencia M.D. Ordering Physician: Daniele Valencia M.D. Date of Service: 10/04/24 Procedure(s): XR knee LT 2V Accession Number(s): [id number] cc: Daniele Valencia M.D.; Tulio Ruggiero M.D. The [address] [address] Patient Name: CARLOS CARABALLO MRN: [id number] date: 1955 Sex: M Assigned Patient Location: Current Patient Location: Accession/Order Number: [id number] Exam Date: 10/04/2024 14:50 Report Date: 10/04/2024 [...] Sheppard Jr., D.O.10/04/2024 2:51 PM Dictation Location: [place] [address] Electronically authenticated by: [id number] Y Date: 10/04/2024 14:51 Dictated By: Rehan Sheppard M.D. Signed By: 10/04/24 1453 DD/ 1451 TD/TT: Produce Sorter:MARTHAHRadiology, Radiologist, - 10/04/2024 The [place] [id number] XRay Report Signed Patient: CARLOS CARABALLO MR#: [id number] : 1955 Acct:[id number] Age/Sex: 69 / M ADM Date: 10/04/24 Loc: EC Attending Dr: Daniele Valencia M.D. Ordering Physician: Daniele Valencia M.D. Date of Service: 10/04/24 Procedure(s): XR knee LT 2V Accession Number(s): [id number] cc: Daniele Valencia M.D.; Tulio Ruggiero M.D. [address] [address] Patient Name: CARLOS CARABALLO MRN: [id number] date: 1955 Sex: M Assigned Patient Location: Current Patient Location: Accession/Order Number: [id number] Exam Date: 10/04/2024 14:50 Report Date: 10/04/2024 [...] Sheppard Jr., D.O.10/04/2024 2:51 PM Dictation Location: [place] [address] Electronically authenticated by: [id number] Y Date: 10/04/2024 14:51 Dictated By: Rehan Sheppard M.D. Signed By: 10/04/24 1453 DD/ 1451 TD/TT: Produce Sorter: NOMS HealthcareRadiology Study observation (narrative)NOM HealthcareXR Knee - left 1 or 2 ViewsOrdered By: Radiologist Radiology on 16-08-4786[facility] Work Phone: XR Knee - left 1 or 2 Viewson 45-00-1368Qw[address] [address] XRay Report Signed Patient: CARLOS CARABALLO MR#: [id number] : 1955 Acct:[id number] Age/Sex: 69 / M ADM Date: 09/06/24 Loc: EC Attending Dr: Daniele Valencia M.D. Ordering Physician: Daniele Valencia M.D. Date of Service: 09/06/24 Procedure(s): XR knee LT 2V Accession Number(s): [id number] cc: Daniele Valencia M.D.; Tulio Ruggiero M.D. The [place] [id number] Patient Name: CARLOS CARABALLO MRN: [id number] date: 1955 Sex: M Assigned Patient Location: Current Patient Location: Accession/Order Number: [id number] Exam Date: 09/06/2024 14:51 Report Date: 09/06/2024 [...] Brunilda Rogers M.D.09/06/2024 2:54 PM Dictation Location: [place] [address] Electronically authenticated by: [id number] Y Date: 09/06/2024 14:54 Dictated By: Brunilda oRgers M.D. Signed By: 09/06/24 1456 DD/ 1454 TD/TT: Produce Sorter:MARTHAHRadiology, Radiologist, - 09/06/2024 The [place] [id number] XRay Report Signed Patient: CARLOS CARABALLO MR#: [id number] : 1955 Acct:[id number] Age/Sex: 69 / M ADM Date: 09/06/24 Loc: EC Attending Dr: Daniele Valencia M.D. Ordering Physician: Dnaiele Valencia M.D. Date of Service: 09/06/24 Procedure(s): XR knee LT 2V Accession Number(s): [id number] cc: Daniele Valencia M.D.; Tulio Ruggiero M.D. [place] [id number] Patient Name: CARLOS CARABALLO MRN: [id number] date: 1955 Sex: M Assigned Patient Location: Current Patient Location: Accession/Order Number: [id number] Exam Date: 09/06/2024 14:51 Report Date: 09/06/2024 [...] Brunilda Rogers M.D.09/06/2024 2:54 PM Dictation Location: [place] [address] Electronically authenticated by: [id number] Y Date: 09/06/2024 14:54 Dictated By: Brunilda Rogers M.D. Signed By: 09/06/24 1456 DD/ 1454 TD/TT: Produce Sorter: ROMEL HealthcareRadiology Study observation (narrative)NOMS HealthcareXR Knee - left 1 or 2 ViewsOrdered By: Radiologist Radiology on 75-07-9915[facility] Work Phone: all BASIC METABOLIC PANELon 68-59-0244Kyqvn gap [Moles/Vol]14.3 mmol/LNOMS HealthcareCalcium [Mass/Vol]7.7 mg/dLLow8.5 - 10.1 mg/dLNOMS HealthcareChloride [Moles/Vol]108 mmol/LHigh98 - 107 mmol/LNOMS HealthcareCO2 [Moles/Vol]25.4 mmol/L21.0 - 32.0 mmol/LNOMS HealthcareCreatinine [Mass/Vol]1.62 mg/dLHigh0.70 - 1.30 mg/dLNOMS HealthcareGFR/1.73 sq M.predicted CKD-EPI (S/P/Bld) [Vol rate/Area]52Low>=60 mL/min/1.73m 2NOMS HealthcareGlucose [Mass/Vol]112 mg/nZBims41 - 106 mg/dLNOMS HealthcareInterpretation and review of laboratory resultsAbnormalNOMS HealthcarePotassium [Moles/Vol]4.7 mmol/L3.5 - 5.1 mmol/LNOMS HealthcareSodium [Moles/Vol]143 mmol/L136 - 145 mmol/LNOMS HealthcareTBH EGFR-NON AF AHQXNGRN82Isc>=60 mL/min/1.73m 2NOMS HealthcareUrea nitrogen [Mass/Vol]28 mg/dLHigh7.0 - 18.0 mg/dLNOMS HealthcareUrea nitrogen/Creatinine [Mass ratio]17.3 mg/mgNOMS HealthcareCLINISYNCNCORNERSTONE SPECIALTY [facility] HealthcareALL CBC WITH AUTO DIFFon 54-84-1842QJDIHNNTT ABSOLUTE AOLU8TDYT HealthcareBasophils/100 WBC (Bld)0.6 %0.2 - 2.0 %NOMS HealthcareEosinophils/100 WBC (Bld)4.9 %0.9 - 7.0 %NOMS HealthcareErythrocyte distribution width (RBC) [Ratio]13.5 %11.0 - 15.0 %NOMS HealthcareHematocrit (Bld) [Volume fraction]43.4 %42.0 - 54.0 %NOMS HealthcareHemoglobin (Bld) [Mass/Vol]14.7 g/dL14.0 - 18.0 g/dLNOTN HealthcareIMMATURE GRANULOCYTES ABS AUTO0.03NOTN HealthcareImmature granulocytes/100 WBC (Bld)0.4 %0.0 - 0.5 %NOMS HealthcareInterpretation and review of laboratory resultsAbnormalNOTN HealthcareLYMPHOCYTES ABSOLUTE AUTO2.2 NOMS HealthcareLymphocytes/100 WBC (Bld)30.6 %20.5 - 60.0 %NOMS Memorial Health SystemMCH (RBC) [Entitic mass]32.8 pg25.9 - 34.0 pgNOAudrain Medical CenterMCHC (RBC) [Mass/Vol] 33.9 g/dL29.9 - 35.2 g/dLNOAudrain Medical CenterMCV (RBC) [Entitic vol]96.9 cYJcgn02.0 - 94.0 fLNOMS HealthcareMONOCYTES ABSOLUTE AUTO0.6NOMS HealthcareMonocytes/100 WBC (Bld)8.3 %1.7 - 12.0 %NOMS HealthcareNEUTROPHILS ABSOLUTE AUTO3.9NOMS Healthcare Neutrophils/100 WBC (Bld)55.2 %43.0 - 75.0 %NOMS HealthcarePlatelet mean volume (Bld) [Entitic vol]8.8 fLLow9.5 - 13.5 fLNOMS HealthcareTBH EO #0.4NOMS HealthcareTBH IIR842VKCF HealthcareTBH RBC4.48LowNOMS HealthcareTBH WBC7.1NOMS HealthcareCLINISYNCNOMS HealthcareXR Knee - left 4 Viewson 87-63-8303[place]mn[place], [place] [address] XRay Report Signed Patient: CARLOS CARABALLO MR#: [id number] : 1955 Acct:[id number] Age/Sex: 69 / M ADM Date: 08/23/24 Loc: SURGOUT Attending Dr: Daniele Valencia M.D. Ordering Physician: Daniele Valencia M.D. Date of Service: 08/23/24 Procedure(s): XR knee LT 4V Accession Number(s): [id number] cc: Daniele Valencia M.D.; Tulio Ruggiero M.D. The [place] [address] Patient Name: CARLOS CARABALLO MRN: [id number] date: 1955 Sex: M Assigned Patient Location: [facility] Current Patient Location: [facility] Accession/Order Number: [id number] Exam Date: 08/23/2024 12:30 Report Date: 08/23/2024 [...] Dictated By: Racheal Steele M.D. Signed By: 08/23/241307 DD/ 04 TD/TT: Produce Sorter:SIDDHARTHAadiologantonio, Radiologist, - 08/23/2024 [place] [address] XRay Report Signed Patient: CARLOS CARABALLO MR#: [id number] : 1955 Acct:[id number] Age/Sex: 69 / M ADM Date: 08/23/24 Loc: SURGOUT Attending Dr: Daniele Valencia M.D. Ordering Physician: Daniele Valencia M.D. Date of Service: 08/23/24 Procedure(s): XR knee LT 4V Accession Number(s): [id number] cc: Daniele Valencia M.D.; Tulio Ruggiero M.D. The [place] [id number] Patient Name: CARLOS CARABALLO MRN: [facility]:[id number] date: 1955 Sex: M Assigned Patient Location: [facility] Current Patient Location: [facility] Accession/Order Number: [id number] Exam Date: 08/23/2024 12:30 Report Date: 08/23/2024 [...] Dictated By: Racheal Steele M.D. Signed By: 08/23/241307 DD/ 1305 TD/TT: Produce Sorter: [facility] HealthcareRadiology Study observation (narrative)[facility]XR Knee - left 4 ViewsOrdered By: Radiologist Radiology on 57-47-6879JSUBMosaic Life Care at St. Joseph Work Phone: aLL TYPE AND SCREENon 94-64-1911PIX and Rh group Nom (Bld)Blood group B Rh(D) positiveFormerly [facility] HospitalALL TYPE AND SCREENon 03-80-4026UZC and Rh group Nom (Bld)Blood group B Rh(D) positiveFormerly [facility] HospitalXR Knee Standing AP Bilateralon 45-59-9949NW Knee Standing AP BilateralEXAM: XR Knee Standing [...] Signed, Electronically Signed in Other Vendor System)Normal [facility] CenterALL MISCELLANEOUS TESTon 48-93-5101CIXJPDNCYGAIX TESTCOMMENT.[facility] HealthcareComment on above:Test Ordered: [id number] Nicotine and Metabolite, Ur Qn Nicotine <10.0 ng/mL Reference Range: . This test was developed and its performance characteristics determined by [facility]. It has not been cleared or approved by the Food and Drug Administration. Nicotine levels greater than 100.0 are consistent with the use of tobacco or tobacco cessation products. Cotinine <10.0 ng/mL Reference Range: . This test was developed and its performance characteristics determined by [facility]. It has not been cleared or approved by the Food and Drug Administration. Cotinine levels greater than 200.0 are consistent with the use of tobacco or tobacco cessation products. Performed at: [address] [id number] Client Associate: Giovany Bhatt MD, Phone: [phone] Performed at: [facility] Lab[address] [id number] Client Associate: Ivan Mckay PhD, Phone: [phone] Nicotine and Metabolite, Quantitative, Urine [facility]Mc[facility] Knee Surg.Navigate or Plan ONLY Lefton 20-00-9306YMK Knee Surg.Navigate or Plan ONLY LeftHISTORY: Arthritis [...] Signed, Electronically Signed in Other Vendor System)Normal [facility] CenterXR Knee 1 or 2 Views Lefton 01-72-3637DM Knee 1 or 2 Views LeftEXAM: Left [...] Signed, Electronically Signed in Other Vendor System)Normal [facility] Medical CenterMRSA SCREENING CULTUREon 25-28-5574LVNOWIIU9 MRSA Screening Culture NOMS BzrwdpanygROOVIRUM9BfvsynsiXQRZ PrqyduewjxCXDFPZHJ1Zzkiajnga at: CB - [facility] HospitalWiptlxhibcBQRETMXV[address] [place], [place] [address]LXMLMosaic Life Care at St. JosephBfjcunrmemXUXYJROF6Ldc Director: Ivan Mckay PhD, Phone: [phone] Life Care at St. JosephCLINISYNCNCORNERSTONE SPECIALTY [facility] HealthcareALL CBC WITH AUTO DIFFon 99-19-1238ZOVITIWRU ABSOLUTE AUTO0.1NOMS HealthcareBasophils/100 WBC (Bld)0.9 %0.2 - 2.0 %NOMS HealthcareEosinophils/100 WBC (Bld)4.9 %0.9 - 7.0 %NOM HealthcareErythrocyte distribution width (RBC) [Ratio]13.7 %11.0 - 15.0 %NOM HealthcareHematocrit (Bld) [Volume fraction]44.7 %42.0 - 54.0 %NOM HealthcareHemoglobin (Bld) [Mass/Vol]14.9 g/dL14.0 - 18.0 g/dLNOAudrain Medical CenterIMMATURE GRANULOCYTES ABS AUTO 0.02NOMS HealthcareImmature granulocytes/100 WBC (Bld)0.3 %0.0 - 0.5 %[facility] HealthcareInterpretation and review of laboratory resultsAbnormalNOAudrain Medical Center LYMPHOCYTES ABSOLUTE AUTO1.5NOAudrain Medical CenterLymphocytes/100 WBC (Bld)23 %20.5 - 60.0 %[facility] HospitalH (RBC) [Entitic mass]32.3 pg25.9 - 34.0 pgNOThe Rehabilitation InstituteHC (RBC) [Mass/Vol]33.3 g/dL29.9 - 35.2 g/dLMosaic Life Care at St. JosephMCV (RBC) [Entitic vol]97 xUIqaq33.0 - 94.0 fLNOTN HealthcareMONOCYTES ABSOLUTE AUTO0.5 NOM HealthcareMonocytes/100 WBC (Bld)7.9 %1.7 - 12.0 %[facility]OM Healthcare NEUTROPHILS ABSOLUTE AUTO4.1NOMS HealthcareNeutrophils/100 WBC (Bld)63 %43.0 - 75.0 %NOMS HealthcarePlatelet mean volume (Bld) [Entitic vol]8.8 fLLow9.5 - 13.5 fLNOMS HealthcareTBH EO #0.3NOMS HealthcareTBH SKZ877JLUW HealthcareTBH RBC4.61 LowNOMS HealthcareTBH WBC6.6NOMS HealthcareCLINISYNCNOMS HealthcareECG 12-LEADon 10-86-2258CxkBoyd, [place] [address] Electrocardiograph Report Signed Patient: CARLOS CARABALLO MR#: [id number] : 1955 Acct:[id number] Age/Sex: 68 / M ADM Date: 07/20/24 Loc: PST Attending Dr: Daniele Valencia M.D. Ordering Physician: Daniele Valencia M.D. Date of Service: 07/20/24 Procedure(s): ECG 12 lead Accession Number(s): [id number] cc: [facility] Test Date: 2024-07-20 Pat Name: CARLOS CARABALLO Department: Room: - Gender: Male [employer] Basic: : 1955 Requested By: TULIO RUGGIERO Order Number: [id number] Reading MD: ABDOULAYE PADILLA Measurements Intervals [place] Rate: 83 P: -3 MO: 155 QRS: -53 QRSD: 141 T: 33 QT: 381 QTc: 449 Interpretive Statements SINUS RHYTHM RIGHT BUNDLE BRANCH BLOCK [120+ ms QRS DURATION, UPRIGHT V1, 40+ ms S IN I/aVL/V4/V5/V6] LEFT ANTERIOR FASCICULAR BLOCK [QRS AXIS <= -45, QR IN I, RS IN II] Electronically Signed On 07-20-2024 20:01:41 EST by ABDOULAYE PADILLA Dictated By: Abdoulaye Padilla D.O. Signed By: 07/20/242001 DD/ 0950 TD/TT: Produce Sorter:TBHRadiology, Radiologist, - 07/20/2024 The [place] [id number] Electrocardiograph Report Signed Patient: CARLOS CARABALLO MR#: [id number] : 1955 Acct:[id number] Age/Sex: 68 / M ADM Date: 07/20/24 Loc: PST Attending Dr: Daniele Valencia M.D. Ordering Physician: Daniele Valencia M.D. Date of Service: 07/20/24 Procedure(s): ECG 12 lead Accession Number(s): [id number] cc: [facility] Test Date: 2024-07-20 Pat Name: CARLOS CARABALLO Department: Room: - Gender: Male [employer] Basic: : 1955 Requested By: TULIO RUGGIERO Order Number: [id number] Reading MD: ABDOULAYE PADILLA Measurements Intervals [place] Rate: 83 P: -3 MO: 155 QRS: -53 QRSD: 141 T: 33 QT: 381 QTc: 449 Interpretive Statements SINUS RHYTHM RIGHT BUNDLE BRANCH BLOCK [120+ ms QRS DURATION, UPRIGHT V1, 40+ ms S IN I/aVL/V4/V5/V6] LEFT ANTERIOR FASCICULAR BLOCK [QRS AXIS <= -45, QR IN I, RS IN II] Electronically Signed On 07-20-2024 20:01:41 EST by ABDOULAYE PADILLA Dictated By: Abdoulaye Padilla D.O. Signed By: 07/20/242001 DD/ TD/TT: Produce Sorter: [place] [address] Electrocardiograph Report Signed Patient: CARLOS CARABALLO MR#: [id number] : 1955 Acct:[id number] Age/Sex: 68 / M ADM Date: 07/20/24 Loc: PST Attending Dr: Daniele Valencia M.D. Ordering Physician: Daniele Valencia M.D. Date of Service: 07/20/24 Procedure(s): ECG 12 lead Accession Number(s): [id number] cc: [facility] Test Date: 2024-07-20 Pat Name: CARLOS CARABALLO Department: Room: - Gender: Male [employer] Basic: : 1955 Requested By: 2089 Order Number: [id number] Reading MD: ABDOULAYE PADILLA Measurements Intervals [place] Rate: 73 P: 65 MO: 169 QRS: -58 QRSD: 140 T: 38 QT: 387 QTc: 429 Interpretive Statements SINUS RHYTHM RIGHT BUNDLE BRANCH BLOCK [120+ ms QRS DURATION, UPRIGHT V1, 40+ ms S IN I/aVL/V4/V5/V6] LEFT ANTERIOR FASCICULAR BLOCK [QRS AXIS <= -45, QR IN I, RS IN II] Electronically Signed On 07-20-2024 20:01:19 EST by ABDOULAYE PADILLA Dictated By: Abdoulaye Padilla D.O. Signed By: 07/20/242000 DD/ TD/TT: Produce Sorter:TBHRadiology, Radiologist, - 07/20/2024 [place] [address] Electrocardiograph Report Signed Patient: CARLOS CARABALLO MR#: [id number] : 1955 Acct:[id number] Age/Sex: 68 / M ADM Date: 07/20/24 Loc: PST Attending Dr: Daniele Valencia M.D. Ordering Physician: Daniele Valencia M.D. Date of Service: 07/20/24 Procedure(s): ECG 12 lead Accession Number(s): [id number] cc: [facility] Test Date: 2024-07-20 Pat Name: CARLOS CARABALLO Department: Room: - Gender: Male [employer] Basic: : 1955 Requested By: 2089 Order Number: [id number] Reading MD: ABDOULAYE PADILLA Measurements Intervals [place] Rate: 73 P: 65 MO: 169 QRS: -58 QRSD: 140 T: 38 QT: 387 QTc: 429 Interpretive Statements SINUS RHYTHM RIGHT BUNDLE BRANCH BLOCK [120+ ms QRS DURATION, UPRIGHT V1, 40+ ms S IN I/aVL/V4/V5/V6] LEFT ANTERIOR FASCICULAR BLOCK [QRS AXIS <= -45, QR IN I, RS IN II] Electronically Signed On 07-20-2024 20:01:19 EST by ABDOULAYE PADILLA Dictated By: Abdoulaye Padilla D.O. Signed By: 07/20/242000 DD/ TD/TT: Produce Sorter: [facility] HealthcareRadiology Study observation (narrative)[facility] HealthcareRadiology Study observation (narrative)NOMS HealthcareECG 12-LEADOrdered By: Radiologist Radiology on 36-79-7318[facility] Work Phone: NOTN Healthcare Work Phone: TB UA (CLEAN/CATCH) INSTRUCTIONAL DESIGN SPECIALIST/MICRO IF IND.on 07-20-2024 BILIRUBIN URINENegativeNEGATIVENOMS HealthcareBLOOD URINENegativeNEGATIVENOMS HealthcareClarity (U)CLEARCLEARNOMS HealthcareColor (U)LT. YELLOWYELLOWNOMS HealthcareGLUCOSE URINE UANegativeNEGATIVE mg/dLNOMS HealthcareKetones Ql (U) NegativeNEGATIVE mg/dLNOMS HealthcareLeukocyte esterase Test strip Ql (U) NegativeNEGATIVENOMS HealthcareNITRITE URINENegativeNEGATIVENOMS HealthcarepH (U)6.0 [pH]5.0 - 9.0NOMS HealthcarePROTEIN URINENegativeNEG/TRACE mg/dLNOMS HealthcareSPECIFIC GRAVITY URINE1.0251.005 - 1.025NOMS HealthcareURINE MICROSCOPIC INDICATEDNONOMS HealthcareUROBILINOGEN URINE0.2 EU/dL0.2 - 1.0 EU/dL NOMS HealthcareCLINISYNCNOMS HealthcareXR CHEST 2Von 23-89-7162Evf [place] [address] XRay Report Signed Patient: CARLOS CARABALLO MR#: [id number] : 1955 Acct:[id number] Age/Sex: 68 / M ADM Date: 07/20/24 Loc: [facility] Attending Dr: Daniele Valencia M.D. Ordering Physician: Daniele Valencia M.D. Date of Service: 07/20/24 Procedure(s): XR chest 2V Accession Number(s): [id number] cc: Daniele Valencia M.D.; Tulio Ruggiero M.D. The [address] [address] Patient Name: CARLOS CARABALLO MRN: [id number] date: 1955 Sex: M Assigned Patient Location: [facility] Current Patient Location: LAB Accession/Order Number: [id number] Exam Date: 07/20/2024 10:06 Report Date: 07/20/2024 [...] M.D. Signed By: 07/20/241706 DD/ 04 TD/TT: Produce Sorter:TBHRadiology, Radiologist, - 07/20/2024 [place] [address] XRay Report Signed Patient: CALROS CARABALLO MR#: [id number] : 1955 Acct:[id number] Age/Sex: 68 / M ADM Date: 07/20/24 Loc: [facility] Attending Dr: Daniele Valencia M.D. Ordering Physician: Daniele Valencia M.D. Date of Service: 07/20/24 Procedure(s): XR chest 2V Accession Number(s): [id number] cc: Daniele Valencia M.D.; Tulio Ruggiero M.D. The [address] [id number] Patient Name: CARLOS CARABALLO MRN: [id number] date: 1955 Sex: M Assigned Patient Location: [facility] Current Patient Location: LAB Accession/Order Number: [id number] Exam Date: 07/20/2024 10:06 Report Date: 07/20/2024 [...] M.D. Signed By: 07/20/241706 DD/ 04 TD/TT: Produce Sorter: ROMEL HealthcareRadiology Study observation (narrative)ROMEL CrumpXR CHEST 2V Ordered By: Radiologist Radiology on 16-26-8290[facility] Work Phone: ca ECHO DOPPLER COMPLETEon 13-56-3263QksBoyd, [place] [address] Cardiology Report Signed Patient: CARLOS CARABALLO MR#: [id number] : 1955 Acct:[id number] Age/Sex: 68 / M ADM Date: 06/28/24 Loc: CARD Attending Dr: Ken Mercer M.D. Ordering Physician: Ken Mercer M.D. Date of Service: 06/28/24 Procedure(s): CA echo doppler complete Accession Number(s): [id number] cc: Ken Mercer M.D.; Tulio Ruggiero M.D. Patient Name: CARLOS CARABALLO MR#: [id number] : 1955 Exam Date: 06/28/2024 Ordering Doctor: [...] 06/28/2024 at 17:49 Dictated By: AMARI MCMANUS (more content not included)...[facility] Radiology, Radiologist, MD - 06/28/2024 [place] [address] Cardiology Report Signed Patient: CARLOS CARABALLO MR#: [id number] : 1955 Acct:[id number] Age/Sex: 68 / M ADM Date: 06/28/24 Loc: CARD Attending Dr: Ken Mercer M.D. Ordering Physician: Ken Mercer M.D. Date of Service: 06/28/24 Procedure(s): CA echo doppler complete Accession Number(s): [id number] cc: Ken Mercer M.D.; Tulio Ruggiero M.D. Patient Name: CARLOS CARABALLO MR#: [id number] : 1955 Exam Date: 06/28/2024 Ordering Doctor: [...] Signed By: 06/28/24 175 DD/ 174 TD/TT: Produce Sorter: [facility] JosephRadiology Study observation (narrative)[facility] ECHO DOPPLER COMPLETEOrdered By: Radiologist Radiology on 71-55-6641JDYJ [facility]us Work Phone: XR Knee - bilateral 4 Viewson 26-02-3317Cqp[place], [place] [address] XRay Report Signed Patient: CARLOS CARABALLO MR#: [id number] : 1955 Acct:[id number] Age/Sex: 68 / M ADM Date: 06/21/24 Loc: [facility] Attending Dr: Daniele Valencia M.D. Ordering Physician: Daniele Valencia M.D. Date of Service: 06/21/24 Procedure(s): XR knee MARIE 4V Accession Number(s): [id number] cc: Daniele Valencia M.D.; Tulio Ruggiero M.D. [address] [address] Patient Name: CARLOS CARABALLO MRN: [id number] date: 1955 Sex: M Assigned Patient Location: [facility] Current Patient Location: Accession/Order Number: [id number] Exam Date: 06/21/2024 13:16 Report Date: 06/23/2024 06:16 At the request of: DANIELE VALENCIA Procedure: XR knee MARIE 4V EXAMINATION: XR knee MARIE 4V HISTORY: BILATERAL KNEE PAIN COMPARISON: XR knee bilateral 03/24/2023 FINDINGS: RIGHT FINDINGS: BONES: Marked narrowing of the medial joint space with [id number] articulation. 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 SOFT TISSUES: No visible soft tissue swelling. OTHER: Small joint effusion. LEFT FINDINGS: BONES: Marked narrowing of the medial joint space with ymcn-ih-khlw articulation. Periarticular degenerative osteophytes involving all 3 compartments; large involving the medial and lateral compartments. SOFT TISSUES: No visible soft tissue swelling. OTHER: Small joint effusion. XR/XR knee MARIE 4V IMPRESSION: RIGHT CONCLUSION: Marked degenerative joint disease; stable to minimally progressed. LEFT CONCLUSION: Marked degenerative joint disease; stable to minimally progressed. Electronically authenticated by: ELIN MCCARTNEY Date: 06/23/2024 06:16 Dictated By: Elin Mccartney M.D. Signed By: 06/23/24618 DD/ 5 TD/TT: Produce Sorter:TBHRadiology, Radiologist, MD - 06/23/2024 [place] [address] XRay Report Signed Patient: CARLOS CARABALLO MR#: [id number] : 1955 Acct:[id number] Age/Sex: 68 / M ADM Date: 06/21/24 Loc: EC Attending Dr: Daniele Valencia M.D. Ordering Physician: Daniele Valencia M.D. Date of Service: 06/21/24 Procedure(s): XR knee MARIE 4V Accession Number(s): [id number] cc: Daniele Valencia M.D.; Tulio Ruggiero M.D. The [place] [address] Patient Name: CARLOS CARABALLO MRN: [id number] date: 1955 Sex: M Assigned Patient Location: EC Current Patient Location: Accession/Order Number: [id number] Exam Date: 06/21/2024 13:16 Report Date: 06/23/2024 06:16 At the request of: DANIELE VALENCIA Procedure: XR knee MARIE 4V EXAMINATION: XR knee MARIE 4V HISTORY: BILATERAL KNEE PAIN COMPARISON: XR knee bilateral 03/24/2023 FINDINGS: RIGHT FINDINGS: BONES: Marked narrowing of the medial joint space with knjz-qr-pwdd articulation. 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 SOFT TISSUES: No visible soft tissue swelling. OTHER: Small joint effusion. LEFT FINDINGS: BONES: Marked narrowing of the medial joint space with cylj-fn-xqxt articulation. Periarticular degenerative osteophytes involving all 3 compartments; large involving the medial and lateral compartments. SOFT TISSUES: No visible soft tissue swelling. OTHER: Small joint effusion. XR/XR knee MARIE 4V IMPRESSION: RIGHT CONCLUSION: Marked degenerative joint disease; stable to minimally progressed. LEFT CONCLUSION: Marked degenerative joint disease; stable to minimally progressed. Electronically authenticated by: ELIN MCCARTNEY Date: 06/23/2024 06:16 Dictated By: Elin Mccartney M.D. Signed By: 06/23/24618 DD/ 5 TD/TT: Produce Sorter: ROMEL HealthcareRadiology Study observation (narrative)[facility]XR K[facility] - bilateral 4 ViewsOrdered By: Radiologist Radiology on 01-83-2800DPWM Merus Work Phone: [facility] [phone] From: Cyndi Montano To: EU - Administrative; Sent: 06/04/2024 12:06:06 EST Show up: 06/04/2024 12:05:00 EST Subject: Ambulatory Reminder Due Date/Time: 05/28/2025 12:05:00 EST Reminder/Recall Patient needs scheduled for a 1 yr f/u, PCP to check PSA. Due back in 06/07 M to call and scheduleThe [facility] CenterUrology Office/Clinic Noteon 20-65-7881Hxdllzs Office/Clinic NoteUrology Office/Clinic Note Chief Complaint 5mo [...] E&M of Est. Patient Moderate 30-39 Min 90573 Influenza immunization status assessed 1030F Medication list [...] E&M of Est. Patient Moderate 30-39 Min 12228 3. Hypogonadism male (E29.1: Testicular hypofunction) Managed by PCP. On T injections. Ordered: Complex E&M Add on G2211 E&M of Est. Patient Moderate 30-39 Min 24661 4. ED (erectile dysfunction) (N52.9: Male erectile dysfunction, unspecified) Failed Tadalafil. A lot of neuropathy. Not interested in additional tx. Ordered: Complex E&M Add on G2211 E&M of Est. Patient Moderate 30-39 Min 57187 Follow-up With When Contact Information LIZ ABREU PA-C, URL Within 1 year Additional Instructions: Patient Education Kidney Stones, Qddw-dr-Puww Problem List/Past Medical History Ongoing Abnormal abdominal [...] BPH with urinary obstructio (more content not included)...[facility] CenterComment on above:Result Comment: Electronically Signed By: LIZ ABREU PA-C\.br\Date and Time Signed: 05/27/2409:57 ESTXR ABDOMEN 1Von 53-15-[place], [place] [address] XRay Report Signed Patient: CARLOS CARABALLO MR#: [id number] : 1955 Acct:[id number] Age/Sex: 68 / M ADM Date: 05/17/24 Loc: RAD Attending Dr: Liz MARTELL Ordering Physician: Liz Abreu Date of Service: 05/17/24 Procedure(s): XR abdomen 1V Accession Number(s): [id number] cc: Tulio Ruggiero M.D.; Liz Abreu [address] [address] Patient Name: CARLOS CARABALLO MRN: [id number] date: 1955 Sex: M Assigned Patient Location: RAD Current Patient Location: Accession/Order Number: [id number] Exam Date: 05/17/2024 08:50 Report Date: 05/18/2024 06:54 At the request of: LIZ ABREU Procedure: XR abdomen 1V EXAMINATION: XR abdomen [...] Stable bilateral nephrolithiasis Electronically authenticated by: RACHEAL STEELE Date: 05/18/2024 06:54 Dictated By: Racheal Steele M.D. Signed By: 05/18/2456 DD/ TD/TT: Produce Sorter:SIDDHARTHAadiologantonio, Radiologist, - 05/18/2024 [place] [address] XRay Report Signed Patient: CARLOS CARABALLO MR#: [id number] : 1955 Acct:[id number] Age/Sex: 68 / M ADM Date: 05/17/24 Loc: RAD Attending Dr: Liz MARTELL Ordering Physician: Liz Abreu Date of Service: 05/17/24 Procedure(s): XR abdomen 1V Accession Number(s): [id number] cc: Tulio Ruggiero M.D.; Liz Abreu [place] [id number] Patient Name: CARLOS CARABALLO MRN: [id number] date: 1955 Sex: M Assigned Patient Location: RAD Current Patient Location: Accession/Order Number: [id number] Exam Date: 05/17/2024 08:50 Report Date: 05/18/2024 06:54 At the request of: LIZ ABREU Procedure: XR abdomen 1V EXAMINATION: XR abdomen [...] Stable bilateral nephrolithiasis Electronically authenticated by: RACHEAL STEELE Date: 05/18/2024 06:54 Dictated By: Racheal Steele M.D. Signed By: 05/18/2456 DD/ TD/TT: Produce Sorter: [facility] HealthcareRadiology Study observation (narrative)NOM HealthcareXR ABDOMEN 1VOrdered By: Radiologist Radiology on 68-48-4454KKBA Merus Work Phone: XR FOOT LT MIN 3Von 97-46-1507[place], [place] [address] XRay Report Signed Patient: CARLOS CARABALLO MR#: [id number] : 1955 Acct:[id number] Age/Sex: 68 / M ADM Date: 02/11/24 Loc: EC Attending Dr: Tonio Bell D.P.M. Ordering Physician: Tonio Bell D.P.M. Date of Service: 02/11/24 Procedure(s): XR foot LT min 3V Accession Number(s): [id number] cc: Tonio Bell D.P.M.; Tulio Ruggiero M.D. The [place] [id number] Patient Name: CARLOS CARABALLO MRN: [id number] date: 1955 Sex: M Assigned Patient Location: EC Current Patient Location: Accession/Order Number: [id number] Exam Date: 02/11/2024 10:36 Report Date: 02/12/2024 06:24 At the request of: TONIO BELL Procedure: XR foot LT min 3V PROCEDURE: [...] the first metatarsophalangeal joint. Electronically authenticated by: ELIN MCCARTNEY Date: 02/12/2024 06:24 Dictated By: Elin Mccartney M.D. Signed By: 02/12/24625 DD/ 3 TD/TT: Produce Sorter:TBHRadiology, Radiologist, - 02/12/2024 [place] [address] XRay Report Signed Patient: CARLOS CARABALLO MR#: [id number] : 1955 Acct:[id number] Age/Sex: 68 / M ADM Date: 02/11/24 Loc: EC Attending Dr: Tonio Bell D.P.M. Ordering Physician: Tonio Bell D.P.M. Date of Service: 02/11/24 Procedure(s): XR foot LT min 3V Accession Number(s): [id number] cc: Tonio Bell D.P.M.; Tulio Ruggiero M.D. The [place] [id number] Patient Name: CARLOS CARABALLO MRN: [id number] date: 1955 Sex: M Assigned Patient Location: Current Patient Location: Accession/Order Number: [id number] Exam Date: 02/11/2024 10:36 Report Date: 02/12/2024 06:24 At the request of: TONIO BELL Procedure: XR foot LT min 3V PROCEDURE: [...] the first metatarsophalangeal joint. Electronically authenticated by: ELIN MCCARTNEY Date: 02/12/2024 06:24 Dictated By: Elin Mccartney M.D. Signed By: 02/12/24625 DD/ 3 TD/TT: Produce Sorter: [facility] HealthcareRadiology Study observation (narrative)NOM HealthcareXR FOOT LT MIN 3VOrdered By: Radiologist Radiology on 44-01-7635[facility] Work Phone: XR FOOT LT MIN 3Von 11-05-0928[place], [place] [address] XRay Report Signed Patient: CARLOS CARABALLO MR#: [id number] : 1955 Acct:[id number] Age/Sex: 68 / M ADM Date: 10/08/23 Loc: EC Attending Dr: Tonio Bell D.P.M. Ordering Physician: Tonio Bell D.P.M. Date of Service: 10/08/23 Procedure(s): XR foot LT min 3V Accession Number(s): [id number] cc: Tonio Bell D.P.M.; Tulio Ruggiero M.D. [place] [id number] Patient Name: CARLOS CARABALLO MRN: [id number] date: 1955 Sex: M Assigned Patient Location: Current Patient Location: Accession/Order Number: [id number] Exam Date: 10/08/2023 08:55 Report Date: 10/09/2023 05:50 At the request of: TONIO BELL Procedure: XR foot LT min 3V PROCEDURE: [...] is felt less likely. Electronically authenticated by: ELIN MCCARTNEY Date: 10/09/2023 05:50 Dictated By: Elin Mccartney M.D. Signed By: 10/09/23 0553 DD/ 0550 TD/TT: Produce Sorter:SIDDHARTHAadiology, Radiologist, - 10/09/2023 [place] [address] XRay Report Signed Patient: CARLOS CARABALLO MR#: [id number] : 1955 Acct:[id number] Age/Sex: 68 / M ADM Date: 10/08/23 Loc: EC Attending Dr: Tonio Bell D.P.M. Ordering Physician: Tonio Bell D.P.M. Date of Service: 10/08/23 Procedure(s): XR foot LT min 3V Accession Number(s): [id number] cc: Tonio Bell D.P.M.; Tulio Ruggiero M.D. The [place] [id number] Patient Name: CARLSO CARABALLO MRN: [id number] date: 1955 Sex: M Assigned Patient Location: Current Patient Location: Accession/Order Number: [id number] Exam Date: 10/08/2023 08:55 Report Date: 10/09/2023 05:50 At the request of: TONIO BELL Procedure: XR foot LT min 3V PROCEDURE: [...] is felt less likely. Electronically authenticated by: ELIN MCCARTNEY Date: 10/09/2023 05:50 Dictated By: Elin Mccartney M.D. Signed By: 10/09/2353 DD/ TD/TT: Produce Sorter: ROMEL HealthcareRadiology Study observation (narrative)[facility] HealthcareXR FOOT LT MIN 3VOrdered By: Radiologist Radiology on 05-90-7895GA[facility] Work Phone: ct FOOT LT WO CONon 95-98-2579[place], [place] [address] CT Scan Report Signed Patient: CARLOS CARABALLO MR#: [id number] : 1955 Acct:[id number] Age/Sex: 67 / M ADM Date: 07/04/23 Loc: CT Attending Dr: Tonio Bell D.P.M. Ordering Physician: Tonio Bell D.P.M. Date of Service: 07/04/23 Procedure(s): CT foot LT wo con Accession Number(s): [id number] cc: Tulio Ruggiero M.D. [place] [id number] Patient Name: CARLOS CARABALLO MRN: [id number] date: 1955 Sex: M Assigned Patient Location: CT Current Patient Location: Accession/Order Number: [id number] Exam Date: 07/04/2023 10:18 Report Date: 07/05/2023 01:52 At the request of: TONIO BELL Procedure: CT foot LT wo con EXAMINATION: [...] fracture of the screws. Electronically authenticated by: ELIN MCCARTNEY Date: 07/05/2023 01:52 Dictated By: Elin Mccartney M.D. Signed By: 07/05/23153 DD/ 1 TD/TT: Produce Sorter:TBHRadiology, Radiologist, MD - 07/05/[address] [address] [address] Scan Report Signed Patient: CARLOS CARABALLO MR#: [id number] : 1955 Acct:[id number] Age/Sex: 67 / M ADM Date: 07/04/23 Loc: CT Attending Dr: Tonio Bell D.P.M. Ordering Physician: Tonio Bell D.P.M. Date of Service: 07/04/23 Procedure(s): CT foot LT wo con Accession Number(s): [id number] cc: Tulio Ruggiero M.D. The [address] [address] Patient Name: CARLOS CARABALLO MRN: [id number] date: 1955 Sex: M Assigned Patient Location: CT Current Patient Location: Accession/Order Number: [id number] Exam Date: 07/04/2023 10:18 Report Date: 07/05/2023 01:52 At the request of: TONIO BELL Procedure: CT foot LT wo con EXAMINATION: [...] fracture of the screws. Electronically authenticated by: ELIN MCCARTNEY Date: 07/05/2023 01:52 Dictated By: Elin Mccartney M.D. Signed By: 07/05/23153 DD/ 1 TD/TT: Produce Sorter: ROMEL HealthcareRadiology Study observation (narrative)NOM HealthcareCT FOOT LT WO CONOrdered By: Radiologist Radiology on 60-69-0247[facility] Work Phone: XR FOOT LT MIN 3Von 27-56-9782[place], [place] [address] XRay Report Signed Patient: CARLOS CARABALLO MR#: [id number] : 1955 Acct:[id number] Age/Sex: 67 / M ADM Date: 07/02/23 Loc: RAD Attending Dr: Tonio Bell D.P.M. Ordering Physician: Tonio Bell D.P.M. Date of Service: 07/02/23 Procedure(s): XR foot LT min 3V Accession Number(s): [id number] cc: Tonio Bell D.P.M.; Tulio Ruggiero M.D. The [place] [id number] Patient Name: CARLOS CARABALLO MRN: [id number] date: 1955 Sex: M Assigned Patient Location: [facility] Current Patient Location: [facility] Accession/Order Number: [id number] Exam Date: 07/02/2023 08:44 Report Date: 07/02/2023 10:35 At the request of: TONIO BELL Procedure: XR foot LT min 3V EXAM: [...] the first metatarsophalangeal joint. Electronically authenticated by: REHAN WONG Date: 07/02/2023 10:35 Dictated By: Tim Guerra M.D. Signed By: 07/02/23 1038 DD/ 1035 TD/TT: Produce Sorter:SIDDHARTHAadiology, Radiologist, - 07/02/2023 [place] [address] XRay Report Signed Patient: CARLOS CARABALLO MR#: [id number] : 1955 Acct:[id number] Age/Sex: 67 / M ADM Date: 07/02/23 Loc: RAD Attending Dr: Tonio Bell D.P.M. Ordering Physician: Tonio Bell D.P.M. Date of Service: 07/02/23 Procedure(s): XR foot LT min 3V Accession Number(s): [id number] cc: Tonio Bell D.P.M.; Tulio Ruggiero M.D. [place] [address] Patient Name: CARLOS CARABALLO MRN: [id number] date: 1955 Sex: M Assigned Patient Location: [facility] Current Patient Location: RAD Accession/Order Number: [id number] Exam Date: 07/02/2023 08:44 Report Date: 07/02/2023 10:35 At the request of: TONIO BELL Procedure: XR foot LT min 3V EXAM: [...] the first metatarsophalangeal joint. Electronically authenticated by: REHAN WONG Date: 07/02/2023 10:35 Dictated By: Tim Guerra M.D. Signed By: 07/02/23 1038 DD/ 1035 TD/TT: Produce Sorter: ROMEL HealthcareRadiology Study observation (narrative)[facility] HealthcareXR FOOT LT MIN 3VOrdered By: Radiologist Radiology on 94-71-8074LBTJ Merus Work Phone: XR LSPINE W_OBLS AND FLEX_EXTon 05-92-7919PX LSPINE W_OBLS AND FLEX_EXTEXAMINATION: XR LSPINE W_OBLS [...] Electronically authenticated by: RACHEAL STEELE Date: 2022-12-05 09:46NoWadsworth-Rittman HospitalCB AUTO DIFFon 58-04-1937INSV #0.1 103/ulNormal0.0-0.1The [facility] HospitalComment on above:Performed By: #### POCGLUC #### [facility] [address] [place] [address] [address] Juliet WilkesBasophils/100 WBC (Bld)0.7 %Normal0.2-2.0[facility] Comment on above:Performed By: #### POCGLUC #### [facility] [address] [place] [address] [address] Juliet Padgett #0.4 103/ulNormal0.0-0.7The [facility] HospitalComment on above: Performed By: #### POCGLUC #### [facility] [address] [place] [address] [address] Juliet Huddlestonosinophils/100 WBC (Bld)5.3 %Normal0.9-7.0[facility] Comment on above:Performed By: #### POCGLUC #### [facility] [address] [place] [address] [address] Juliet Huddlestonrythrocyte distribution width (RBC) [Ratio]14.0 %Jlpolq00.0-15.0 The [facility] HospitalComment on above:Performed By: #### POCGLUC #### [facility] [address] [place] [address] Dr. Juliet Hillatoshirazt (Bld) [Volume fraction]43.6 %Tmxizi08.0-54.0The [facility] HospitalComment on above:Performed By: #### POCGLUC #### [facility] [address] [place] [address] Dr. Juliet WilkesHemoglobin (Bld) [Mass/Vol]14.9 g/gYSiadqj57.0-18.0The [facility] HospitalComment on above:Performed By: #### POCGLUC #### [facility] [address] [place] [address] Dr. Juliet Cervantes #0.03 10e3/ulNormal0.00-0.03The [facility] HospitalComment on above:Performed By: #### POCGLUC #### [facility] [address] [place] [address] Dr. Juliet Cervantes %0.4 %Normal0.0-0.5The [facility] HospitalComment on above: Performed By: #### POCGLUC #### [facility] [address] [place] [address] Dr. Juliet Arambula #2.0 103/ulNormal1.2-3.8The [facility] HospitalComment on above:Performed By: #### POCGLUC #### [facility] [address] [place] [address] Dr. Juliet Westhocytes/100 WBC (Bld)29.3 %Chfreh05.5-60.0The [facility] HospitalComment on above:Performed By: #### POCGLUC #### [facility] [address] [place] [address] Dr. Juliet McdanielUAL DIFF REQNONormalThe Providence HospitalComment on above: Performed By: #### POCGLUC #### [facility] [address] [place] [address] Dr. Juliet Yanes (RBC) [Entitic mass]33.4 zkLrhqsy60.9-34.0The [facility] HospitalComment on above:Performed By: #### POCGLUC #### [facility] [address] [place] [address] Dr. Juliet Valderrama (RBC) [Mass/Vol]34.2 g/bXMthncd14.9-35.2The [facility] HospitalComment on above:Performed By: #### POCGLUC #### [facility] [address] [place] [address] Dr. Juliet Penaloza (RBC) [Entitic vol]97.8 fLCritically high80.0-94.0The [facility] HospitalComment on above:Performed By: #### POCGLUC #### [facility] [address] [place] [address] Dr. Juliet Dumont #0.7 103/ulNormal0.3-0.8The [facility] HospitalComment on above:Performed By: #### POCGLUC #### [facility] [address] [place] [address] Dr. Juliet Maciasocytes/100 WBC (Bld)9.9 %Normal1.7-12.0[facility] Comment on above:Performed By: #### POCGLUC #### [facility] [address] [place] [address] Dr. Juliet Del Angel #3.7 103/ulNormal1.4-6.5The [facility] HospitalComment on above:Performed By: #### POCGLUC #### [facility] [address] [place] [address] Dr. Juliet Caballeroophils/100 WBC (Bld)54.4 %Uhffpe57.0-75.0The [facility] HospitalComment on above:Performed By: #### POCGLUC #### [facility] [address] [place] [address] Dr. Juliet Cespedeslet mean volume (Bld) [Entitic vol]9.0 fLCritically low 9.5-13.5The [facility] HospitalComment on above:Performed By: #### POCGLUC #### [facility] [address] [place] [address] [address] Juliet WilkesPLT211 103/upQxdydl592-346Uon Providence HospitalComment on above: Performed By: #### POCGLUC #### [facility] [address] [place] [address] [address] Juliet WilkesRBC4.46 106/ulCritically low4.70-6.10The [facility] HospitalComment on above:Performed By: #### POCGLUC #### [facility] [address] [place] [address] [address] Juliet WilkesWBC6.8 103/ulNormal4.0-11.0The [facility] HospitalComment on above: Performed By: #### POCGLUC #### [facility] [address] [place] [address] Dr. Juliet WilkesPOINT OF CARE GLUCOSEon 83-72-1714Ovumyll [Mass/Vol]100 mg/dL Xvoprl90-255Zji Providence HospitalComment on above:Performed By: #### POCGLUC #### [facility] [address] [place] [address] Dr. Juliet WilkesGlucose [Mass/Vol]94 mg/kKGebvyb32-533PwsGrand [facility] Comment on above:Performed By: #### A1C #### [facility] [address] [place] [address] Dr. Juliet WilkesPROF CHEM 8 (BAS METB)on 20-67-7216Muwwk gap [Moles/Vol]14.0 mmol/LNormalThe Providence HospitalComment on above:Performed By: #### BMP #### [facility] [address] [place] [address] Dr. Juliet WilkesCalcium [Mass/Vol]9.0 mg/dLNormal8.5-10.1[facility] Comment on above:Performed By: #### BMP #### [facility] [address] [place] [address] Dr. Juliet WilkesChloride [Moles/Vol]107 mmol/TOkqrey64-957Hhw [facility] Comment on above:Performed By: #### BMP #### [facility] [address] [place] [address] [address] Juliet WilkesCO2 [Moles/Vol]28.7 mmol/CVkycfq58.0-32.0[facility] Comment on above:Performed By: #### BMP #### [facility] [address] [place] [address] [address] Juliet WilkesCreatinine [Mass/Vol]1.41 mg/dLCritically high0.70-1.30The [facility] HospitalComment on above:Performed By: #### BMP #### [facility] [address] [place] [address] [address] Laureano ChangEGFR-AF MOSOTHO>60Normal>=60The Providence HospitalComment on above:Performed By: #### BMP #### [facility] [address] [place] [address] [address] Juliet HuddlestonGFR-NON AF TQITDLLA02 mL/min/1.30y4Bpuojpkjas low>=60The [facility] HospitalComment on above:Performed By: #### BMP #### [facility] [address] [place] [address] [address] Juliet WilkesGlucose [Mass/Vol]95 mg/hHIamtcw45-614OgfGrand [facility] Joint [facility] Hospital Comment on above:Performed By: #### BMP #### [facility] [address] [place] [address] [address] Juliet WilkesPotassium [Moles/Vol]4.7 mmol/LNormal3.5-5.1[facility] Comment on above:Performed By: #### BMP #### [facility] [address] [place] [address] [address] Juliet WilkesSodium [Moles/Vol]145 mmol/DGkbmie454-267LndGrand Lake Joint Township District Memorial Hospital Comment on above:Performed By: #### BMP #### [facility] [address] [place] [address] [address] Juliet WilkesUrea nitrogen [Mass/Vol]25.0 mg/dLCritically high7.0-18.0The [facility] HospitalComment on above:Performed By: #### BMP #### [facility] [address] [place] [address] [address] Juliet WilkesUrea nitrogen/Creatinine [Mass ratio]17.7 mg/mgNoWadsworth-Rittman HospitalComment on above:Performed By: #### BMP #### [facility] [address] [place] [address] [address] Juliet Watson Visiton 14-39-0649Jxmsgx-up [id number] IlyaCarlos Farrar 1955 M Date Provider Department Center 07/31/2022 BENTLEY MENDOZA [facility] Family History Problem Relation Age of Onset Stroke Father Family Status - Relation Status Age at Father Level of Service:44607 MO OFFICE/OUTPATIENT ESTABLISHED MOD MDM 30-39 MIN Reason for Visit and Comments: Hyperlipidemia [182] Hypertension [028210] history of PE [Other]NormalUnPremier Health Atrium Medical CenterCULTURE WOUNDon 07-18-4028USPSOGV WOUNDCulture Observations: No growth of anaerobes at 72 hours. Isolate 1 Stenotrophomonas maltophilia Moderate growth of ORGANISM 1 Stenotrophomonas maltophilia ANTIBIOTIC M.I.C RX STATUS Levofloxacin 1 S F Trimethoprim/Sulfamethoxazole <=20 S FNormalThe Providence HospitalComment on above:Performed By: #### WOUNDCX ####[facility] [address] [place] [address]Dr. Juliet WilkesGLYCOHEMOGLOBIN A1Con 20-84-2971LCE RECOMMENDATIONSEE BELOWNoWadsworth-Rittman HospitalComment on above:Result Comment: ADA RECOMMENDED LIMIT 4.0 - 6.0 ADA THERAPEUTIC TARGET < 7.0 ACTION SUGGESTED > 7.0Performed By: #### A1C #### [facility] [address] [address] [address] Juliet WilkesGlucose [Mass/Vol]111 mg/dLCleveland Clinic Mentor HospitalComment on above:Performed By: #### A1C #### [facility] [address] [address] [address] Juliet WilkesHbA1c (Bld) [Mass fraction]5.5 %Normal4.5-6.2The Providence HospitalComment on above:Performed By: #### A1C #### [facility] [address] [address] [address] Juliet Valdovinos M/2D COMPLETEon 59-15-3092HGIMUGNPCO M/2D COMPLETE Patient: CARLOS CARABALLO Exam Date: 06/28/2022 : 1955 Gender:M Ordering : DR KEN MERCER M.D. Admission #: [id number] Family : Order #: [id number] CLICK HERE TO VIEW EXAM ECHOCARDIOGRAM REPORT [...] Pressure: 42.50 ml, 42.50 ml Dictated by: Amari Mcmanus M.D. on 07/04/2022 at 13:28 Approved by: Amari Mcmanus M.D. on 07/04/2022 at 13:38NoWadsworth-Rittman HospitalURIC ACID SERUMon 68-05-4295Ayeey [Mass/Vol]6.9 mg/dLNormal3.5-7.2[facility] HospitalComment on above:Performed By: #### A1C #### [facility] [address] [place] [address] Dr. Juliet WilkesXR KUB 1 VIEWon 79-96-3998MJ KUB 1 VIEWEXAMINATION: XR KUB 1 VIEW [...] Electronically authenticated by: RACHEAL STEELE Date: 2022-05-28 07:31NormalThBarnesville Hospital AUTO DIFFon 24-51-6140REYB #0.1 103/ulNormal0.0-0.1The Providence HospitalComment on above:Performed By: #### CBC #### [facility] [address] [place] [address] Dr. Juliet WilkesBasophils/100 WBC (Bld)0.9 %Normal0.2-2.0[facility] Comment on above:Performed By: #### CBC #### [facility] [address] [place] [address] Dr. Juliet Padgett #0.4 103/ulNormal0.0-0.7The Providence HospitalComment on above: Performed By: #### CBC #### [facility] [address] [place] [address] Dr. Juliet Huddlestonosinophils/100 WBC (Bld)5.2 %Normal0.9-7.0[facility] Comment on above:Performed By: #### CBC #### [facility] [address] [place] [address] Dr. Juliet Huddlestonrythrocyte distribution width (RBC) [Ratio]13.6 %Yxwymk11.0-15.0 [facility] HospitalComment on above:Performed By: #### CBC #### [facility] [address] [place] [address] Dr. Juliet WilkesHematocrit (Bld) [Volume fraction]40.5 %Critically low42.0-54.0 The Providence HospitalComment on above:Performed By: #### CBC #### [facility] [address] [place] [address] [address] Juliet WilkesHemoglobin (Bld) [Mass/Vol]13.7 g/dLCritically low14.0-18.0[facility] HospitalComment on above:Performed By: #### CBC #### [facility] [address] [place] [address] Dr. Juliet Cervantes #0.02 10e3/ulNormal0.00-0.03The Providence HospitalComment on above:Performed By: #### CBC #### [facility] [address] [place] [address] Dr. Juliet Cervantes %0.3 %Normal0.0-0.5The [facility] HospitalComment on above: Performed By: #### CBC #### [facility] [address] [place] [address] [address] Juliet Arambula #1.9 103/ulNormal1.2-3.8The [facility] HospitalComment on above:Performed By: #### CBC #### [facility] [address] [place] [address] Dr. Juliet Westhocytes/100 WBC (Bld)27.7 %Ysecth02.5-60.0The [facility] HospitalComment on above:Performed By: #### CBC #### [facility] [address] [place] [address] Dr. Juliet Melendez DIFF REQNONormalThe Providence HospitalComment on above: Performed By: #### CBC #### [facility] [address] [place] [address] Dr. Juliet Yanes (RBC) [Entitic mass]33.3 ipNkpfvk15.9-34.0The [facility] HospitalComment on above:Performed By: #### CBC #### [facility] [address] [place] [address] Dr. Juliet Valderrama (RBC) [Mass/Vol]33.8 g/uZYtbzzk93.9-35.2The [facility] HospitalComment on above:Performed By: #### CBC #### [facility] [address] [place] [address] Dr. Juliet Penaloza (RBC) [Entitic vol]98.3 fLCritically high80.0-94.0The [facility] HospitalComment on above:Performed By: #### CBC #### [facility] [address] [place] [address] Dr. Yilan ChangMONO #0.7 103/ulNormal0.3-0.8The [facility] HospitalComment on above:Performed By: #### CBC #### [facility] [address] [place] [address] Dr. Juliet Maciasocytes/100 WBC (Bld)9.9 %Normal1.7-12.0[facility] Comment on above:Performed By: #### CBC #### [facility] [address] [place] [address] Dr. Juliet Del Angel #3.8 103/ulNormal1.4-6.5The [facility] HospitalComment on above:Performed By: #### CBC #### [facility] [address] [place] [address] Dr. Juliet Leoneutrophils/100 WBC (Bld)56.0 %Yrqctk13.0-75.0The [facility] HospitalComment on above:Performed By: #### CBC #### [facility] [address] [place] [address] Dr. Juliet WilkesPlatelet mean volume (Bld) [Entitic vol]9.0 fLCritically low 9.5-13.5The [facility] HospitalComment on above:Performed By: #### CBC #### [facility] [address] [place] [address] Dr. Juliet WilkesPLT201 103/lvYkchph493-617Ees Providence HospitalComment on above: Performed By: #### CBC #### [facility] [address] [place] [address] Dr. Juliet WilkesRBC4.12 106/ulCritically low4.70-6.10The [facility] HospitalComment on above:Performed By: #### CBC #### [facility] [address] [place] [address] Dr. Juliet WilkesWBC6.7 103/ulNormal4.0-11.0The [facility] HospitalComment on above: Performed By: #### CBC #### [facility] [address] [place] [address] Dr. Juliet WilkesGLYCOHEMOGLOBIN A1Con 86-50-3437EOT RECOMMENDATIONSEE BELOWNormak The Providence HospitalComment on above:Result Comment: ADA RECOMMENDED LIMIT 4.0 - 6.0 ADA THERAPEUTIC TARGET < 7.0 ACTION SUGGESTED > 7.0Performed By: #### A1C #### [facility] [address] [place] [address] Dr. Juliet WilkesGlucose [Mass/Vol]108 mg/dLNoWadsworth-Rittman HospitalComment on above:Performed By: #### A1C #### [facility] [address] [place] [address] Dr. Juliet WilkesHbA1c (Bld) [Mass fraction]5.4 %Normal4.5-6.2The [facility] HospitalComment on above:Performed By: #### A1C #### [facility] [address] [place] [address] Dr. Juliet WilkesLIPID PROFILEon 80-32-7122PWHU-HDL RATIO NORMSEE BELOWCleveland Clinic Mentor HospitalComment on above:Result Comment: 3.3 - 4.4 LOW RISK 4.4 - 7.1 AVERAGE RISK 7.1 - 11.0 MODERATE RISK >11.0 HIGH RISKPerformed By: #### LIPID, CMP #### [facility] [address] [place] [address] Dr. Juliet Nguyenesterol [Mass/Vol]154 mg/dLNormal<=200[facility] Comment on above:Performed By: #### LIPID, CMP #### [facility] [address] [place] [address] Dr. Juliet Nguyenesterol in HDL [Mass/Vol]29 mg/dLCritically zny51-67Zca Providence HospitalComment on above:Performed By: #### LIPID, CMP #### [facility] [address] [place] [address] Dr. Juliet Nguyenesterol in LDL [Mass/Vol]64.2 mg/dLNoWadsworth-Rittman HospitalComment on above:Performed By: #### LIPID, CMP #### [facility] [address] [place] [address] Dr. Yilan ChangCholesterol.total/Cholesterol in HDL [Mass ratio]5.3 {ratio} NormalThe Providence HospitalComment on above:Performed By: #### LIPID, CMP #### [facility] [address] [place] [address] Dr. Juliet Kenney NORMAL> or = 60 mg/dl - LOW CARDIOVASCULAR RISK <40 mg/dl - HIGH CARDIOVASCULAR RISKCleveland Clinic Mentor HospitalComment on above:Performed By: #### LIPID, CMP #### [facility] [address] [place] [address] Dr. Juliet WilkesLDL CALC NORMALSEE BELOWCleveland Clinic Mentor HospitalComment on above:Result Comment: <100 mg/dl OPTIMAL 100 - 129 mg/dl NEAR OR ABOVE OPTIMAL 130 - 159 mg/dl BORDERLINE HIGH 160 - 189 mg/dl HIGH >190 mg/dl VERY HIGH Performed By: #### LIPID, CMP #### [facility] [address] [place] [address] Dr. Juliet WilkesTriglyceride [Mass/Vol]304 mg/dLCritically high<=150The [facility] HospitalComsouthwest regional rehabilitation [facility] on above:Performed By: #### LIPID, CMP #### [facility] [address] [place] [address] Dr. Juliet WilkesVLDL CALC60.8 mg/dLNoWadsworth-Rittman HospitalComsouthwest regional rehabilitation center on above: Performed By: #### LIPID, CMP #### [facility] [address] [place] [address] Dr. Juliet WilkesPROF 14(COMP METB)on 20-45-1772Vidbltl [Mass/Vol]3.7 g/dLNormal 3.4-5.0[facility] HospitalComment on above:Performed By: #### LIPID, CMP #### [facility] [address] [place] [address] Dr. Juliet WilkesAlbumin/Globulin [Mass ratio]1.1 {ratio}NormalThe Providence HospitalComment on above:Performed By: #### LIPID, CMP #### [facility] [address] [place] [address] Dr. Juliet Caro [Catalytic activity/Vol]87 U/JJmbeft80-740Qkt Providence HospitalComment on above:Performed By: #### LIPID, CMP #### [facility] [address] [place] [address] [address] Juliet Benavidez [Catalytic activity/Vol]52 U/UOrjsbq39-45Wya Providence HospitalComment on above:Performed By: #### LIPID, CMP #### [facility] [address] [place] [address] [address] Juliet Buschon gap [Moles/Vol]11.5 mmol/LNormalGrand [facility] Comment on above:Performed By: #### LIPID, CMP #### [facility] [address] [place] [address] [address] Juliet Holloway [Catalytic activity/Vol]27 U/LXshwum15-74Nux Providence HospitalComment on above:Performed By: #### LIPID, CMP #### [facility] [address] [place] [address] Dr. Juliet WilkesBilirubin [Mass/Vol]0.4 mg/dLNormal0.2-1.0[facility] Comment on above:Performed By: #### LIPID, CMP #### [facility] [address] [place] [address] Dr. Juliet WilkesCalcium [Mass/Vol]8.7 mg/dLNormal8.5-10.1[facility] Comment on above:Performed By: #### LIPID, CMP #### [facility] [address] [place] [address] Dr. Juliet WilkesChloride [Moles/Vol]106 mmol/REmvawk73-393FqgGrand [facility] Joint [facility] District [facility] Hospital Comment on above:Performed By: #### LIPID, CMP #### [facility] [address] [place] [address] Dr. Juliet WilkesCO2 [Moles/Vol]28.2 mmol/OIkzsma78.0-32.0[facility] Comment on above:Performed By: #### LIPID, CMP #### [facility] [address] [place] [address] Dr. Juliet WilkesCreatinine [Mass/Vol]1.21 mg/dLNormal0.70-1.30[facility] HospitalComment on above:Performed By: #### LIPID, CMP #### [facility] [address] [place] [address] Dr. Juliet HuddlestonGFR-AF MOSOTHO>60Normal>=60The [facility] HospitalComment on above:Performed By: #### LIPID, CMP #### [facility] [address] [place] [address] Dr. Juliet Mcclure-NON AF MOSOTHO=60Normal>=60[facility] HospitalComment on above:Performed By: #### LIPID, CMP #### [facility] [address] [place] [address] Dr. Juliet WilkesGlobulin (S) [Mass/Vol]3.4 g/dLNormalThe Providence HospitalComment on above:Performed By: #### LIPID, CMP #### [facility] [address] [place] [address] Dr. Juliet WilkesGlucose [Mass/Vol]100 mg/eJZgpklf93-173PkkGrand [facility] Comment on above:Performed By: #### LIPID, CMP #### [facility] [address] [place] [address] Dr. Juliet WilkesPotassium [Moles/Vol]4.7 mmol/LNormal3.5-5.1[facility] Comment on above:Performed By: #### LIPID, CMP #### [facility] [address] [place] [address] Dr. Juliet WilkesProtein [Mass/Vol]7.1 g/dLNormal6.4-8.2[facility] Comment on above:Performed By: #### LIPID, CMP #### [facility] [address] [place] [address] Dr. Juliet WilkesSodium [Moles/Vol]141 mmol/BUgwdct000-518UqjGrand [facility] Joint [facility] District [facility] Comment on above:Performed By: #### LIPID, CMP #### [facility] [address] [place] [address] Dr. Juliet WilkesUrea nitrogen [Mass/Vol]23.0 mg/dLCritically high7.0-18.0[facility] HospitalComment on above:Performed By: #### LIPID, CMP #### [facility] [address] [place], [place] [address] Dr. Juliet Yee nitrogen/Creatinine [Mass ratio]19.0 mg/mgNormAshtabula County Medical CenterComment on above:Performed By: #### LIPID, CMP #### [facility] [address] [place], [place] [address] Dr. Juliet WilkesVC CONSULT FOLLOWUPon 31-57-9680UX CONSULT FOLLOWUPPatient: CARLOS CARABALLO Exam Date: 04/08/2022 : 1955 Gender:M Ordering : DR RACHEAL STEELE M.D. Admission #: [id number] Family : Order #: [id number] CLICK HERE [...] by: Racheal Steele MD on 04/08/2022 at 11:30[facility] HospitalVC EXT VENOUS RT LIMITEDon 81-28-4065BF EXT VENOUS RT LIMITEDPatient: CARLOS CARABALLO Exam Date: 04/08/2022 : 1955 Gender:M Ordering : DR RACHEAL STEELE M.D. Admission #: [id number] Family : Order #: [id number] CLICK HERE TO VIEW EXAM RADIOLOGY REPORT [...] by: Racheal Steele MD on 04/08/2022 at 11:31[facility] HospitalVC INJ FOAM SCLERO W US MLTIon 48-55-3316DX INJ FOAM SCLERO W US MLTIPatient: CARLOS CARABALLO Exam Date: 04/03/2022 : 1955 Gender:M Ordering : DR RACHEAL STEELE M.D. Admission #: [id number] Family : DR NATHALY Ojeda Order #: [id number] CLICK HERE TO VIEW EXAM RADIOLOGY REPORT [...] hours, av (more content not included)...Normal The [facility] HospitalVC CONSULT FOLLOWUPon 25-49-7711VK CONSULT FOLLOWUPPatient: ILYA, CARLOS Marianna Exam Date: 03/25/2022 : 1955 Gender:M Ordering : DR RACHEAL STEELE M.D. Admission #: [id number] Family : Order #: [id number] CLICK HERE TO VIEW EXAM RADIOLOGY REPORT [...] by: Elin Mccartney M.D. on 03/25/2022 at 08:41[facility] HospitalVC EXT VENOUS RT LIMITEDon 58-19-2629MM EXT VENOUS RT LIMITEDPatient: CARLOS CARABALLO Exam Date: 03/25/2022 : 1955 Gender:M Ordering : DR RACHEAL STEELE M.D. Admission #: [id number] Family : Order #: [id number] CLICK HERE TO VIEW EXAM RADIOLOGY REPORT [...] by: Elin Mccartney M.D. on 03/25/2022 at 08:39[facility] HospitalVC ENDOVENOUS ABL 1ST V RTon 25-32-4517SD ENDOVENOUS ABL 1ST V RT Patient: CARLOS CARABALLO Exam Date: 03/19/2022 : 1955 Gender:M Ordering : DR RACHEAL STEELE M.D. Admission #: [id number] Family : Order #: [id number] CLICK HERE TO VIEW EXAM RADIOLOGY REPORT [...] by: Racheal Steele MD on 03/19/2022 at 08:58[facility] HospitalVC CONSULT FOLLOWUPon 52-11-6081LJ CONSULT FOLLOWUPPatient: ILYA, CARLOS Marianna Exam Date: 02/18/2022 : 1955 Gender:M Ordering : DR RACHEAL STEELE M.D. Admission #: [id number] Family : Order #: [id number] CLICK HERE TO VIEW EXAM RADIOLOGY REPORT [...] by: Racheal Steele MD on 02/18/2022 at 09:45[facility] HospitalVC EXT VENOUS LT LIMITEDon 30-16-1472AF EXT VENOUS LT LIMITEDPatient: ILYA CARLOS Marianna Exam Date: 02/18/2022 : 1955 Gender:M Ordering : DR RACHEAL STEELE M.D. Admission #: [id number] Family : Order #: [id number] CLICK HERE TO VIEW EXAM RADIOLOGY REPORT [...] varicose veins remain off of SSV and clubhouse attendant mid posterior calf. *Exam performed in accordance with [facility] practice guidelines- Peripheral venous ultrasound, October 07, 2009. 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 Admission #: [id number] Family : Order #: [id number] CLICK HERE TO VIEW EXAM RADIOLOGY REPORT [...] by: Elin Mccartney M.D. on 02/13/2022 at 10:15NMercy Health St. Charles HospitalVC CONSULT FOLLOWUPon 25-54-7577GG CONSULT FOLLOWUPPatient: CARLOS CARABALLO Exam Date: 02/06/2022 : 1955 Gender:M Ordering : DR RACHEAL STEELE M.D. Admission #: [id number] Family : Order #: [id number] CLICK HERE TO VIEW EXAM RADIOLOGY REPORT [...] by: Elin Mccartney M.D. on 02/06/2022 at 09:53[facility] HospitalVC EXT VENOUS LT LIMITEDon 50-55-1951AJ EXT VENOUS LT LIMITEDPatient: CARLOS CARABALLO Exam Date: 02/06/2022 : 1955 Gender:M Ordering : DR RACHEAL STEELE M.D. Admission #: [id number] Family : Order #: [id number] CLICK HERE TO VIEW EXAM RADIOLOGY REPORT [...] by: Elin Mccartney M.D. on 02/06/2022 at 09:49[facility] HospitalGLYCOHEMOGLOBIN A1Con 22-14-6977MLF RECOMMENDATIONSEE [facility] CenterComment on above:Result Comment: ADA RECOMMENDED LIMIT 4.0 - 6.0 ADA THERAPEUTIC TARGET < 7.0 ACTION SUGGESTED > 7.0Performed By: #### A1C #### [facility] [address] [place] [address] [address] Juliet WilkesGlucose [Mass/Vol]108 mg/dLNoWadsworth-Rittman HospitalComment on above:Performed By: #### A1C #### [facility] [address] [place] [address] [address] Juliet WilkesHbA1c (Bld) [Mass fraction]5.4 %Normal4.5-6.2The [facility] HospitalComment on above:Performed By: #### A1C #### [facility] [address] [place] [address] [address] Juliet WilkesPROF 14(COMP METB)on 98-30-8012Lpruixq [Mass/Vol]4.0 g/dLNormal 3.4-5.0The [facility] HospitalComment on above:Performed By: #### CMP ####[facility] [address] [place], [place] [address]Dr.Juliet Wilkes Albumin/Globulin [Mass ratio]1.2 {ratio}NormalThe Providence HospitalComment on above:Performed By: #### CMP ####[facility] [address] [place], [place] [address]Dr.Juliet WilkesALP [Catalytic activity/Vol]89 U/LNormal 46-116The [facility] HospitalComment on above:Performed By: #### CMP ####[facility] [address] [place], [place] [address]Dr.Juliet WilkesALT [Catalytic activity/Vol]81 U/LCritically oxab69-40Zzc [facility] HospitalComment on above:Performed By: #### CMP ####[facility] Byyd[address]bpm[address] [place], [place] [address]Dr.Juliet WilkesAnion gap [Moles/Vol]13.6 mmol/LNormal The [facility] HospitalComment on above:Performed By: #### CMP ####[facility] [address] [place], [place] [address]Dr.Juliet ChangAST [Catalytic activity/Vol]32 U/VJnphga88-78Xsf [facility] HospitalComment on above: Performed By: #### CMP ####[facility] [address] [place], [place] [address]Dr.Juliet WilkesBilirubin [Mass/Vol]0.5 mg/dLNormal 0.2-1.0The [facility] HospitalComment on above:Performed By: #### CMP ####[facility] [address] [place], [place] [address]Dr.Juliet Wilkes Calcium [Mass/Vol]8.9 mg/dLNormal8.5-10.1The [facility] HospitalComment on above: Performed By: #### CMP ####[facility] [address] [place], [place] [address]Dr.Juliet ChangChloride [Moles/Vol]106 mmol/LNormal 98-107The [facility] HospitalComment on above:Performed By: #### CMP ####[facility] [address] [place], [place] [address]Dr.Yilan ChangCO2 [Moles/Vol]27.1 mmol/FPsjfhv63.0-32.0The [facility] HospitalComment on above: Performed By: #### CMP ####[facility] [address] [place], [place] [address]Dr.Yilan ChangCreatinine [Mass/Vol]1.46 mg/dL Critically high0.70-1.30The [facility] HospitalComment on above:Performed By: #### CMP ####[facility] [address] [place], [place] [address]Dr.Yilan ChangEGFR-AF QDKRXTWN98 mL/min/1.91h4Jsqeiqwlbd low>=60The [facility] HospitalComment on above:Performed By: #### CMP ####[facility] [address] [place], [place] [address]Dr.Yilan ChangEGFR-NON AF NJDUZIRT86 mL/min/1.79n2Qoramxtmrz low>=60The [facility] HospitalComment on above: Performed By: #### CMP ####[facility] [address] [place], [place] [address]Dr.Yilan ChangGlobulin (S) [Mass/Vol]3.4 g/dLNormalThe [facility] HospitalComment on above:Performed By: #### CMP ####[facility] [address] [place], [place] [address]Dr.Yilan ChangGlucose [Mass/Vol]93 mg/oTYbqtvj40-496Ycx [facility] HospitalComment on above:Performed By: #### CMP ####[facility] [address] [place], [place] [address]Dr.Yilan ChangPotassium [Moles/Vol]4.7 mmol/LNormal3.5-5.1The [facility] HospitalComment on above:Performed By: #### CMP ####[facility] [address] [place], [place] [address]Dr.Yilan ChangProtein [Mass/Vol]7.4 g/dLNormal6.4-8.2The [facility] HospitalComment on above:Performed By: #### CMP ####[facility] [address] [place] [address]Dr.Yilan ChangSodium [Moles/Vol]142 mmol/JEuorng810-490Svg [facility] HospitalComment on above:Performed By: #### CMP ####[facility] [address] [place] [address]Dr.Yilan ChangUrea nitrogen [Mass/Vol]25.0 mg/dLCritically high7.0-18.0The [facility] HospitalComment on above:Performed By: #### CMP ####[facility] [address] [place] [address]Dr.Yilan ChangUrea nitrogen/Creatinine [Mass ratio] 17.1 mg/mgNormalThe Providence HospitalComment on above:Performed By: #### CMP ####[facility] [address] [place] [address]Dr. Juliet ChangVC ENDOVENOUS ABL 1ST V LTon 63-65-4490RT ENDOVENOUS ABL 1ST V LT Patient: CARLOS CARABALLO Exam Date: 01/30/2022 : 1955 Gender:M Ordering : DR RACHEAL STEELE M.D. Admission #: [id number] Family : Order #: [id number] CLICK HERE TO VIEW EXAM RADIOLOGY REPORT [...] by: Elin Mccartney M.D. on 01/30/2022 at 12:00[facility] HospitalPOINT OF CARE GLUCOSEon 23-04-7055Qxwghyg [Mass/Vol]84 mg/fNRalelz18-454 The [facility] HospitalComment on above:Performed By: #### POCGLUC #### [facility] [address] [place] [address] [address] Juliet WilkesVC COMP CONSULTATIONon 86-46-7518FF COMP CONSULTATIONPatient: CARLOS CARABALLORusty Exam Date: 01/21/2022 : 1955 Gender:M Ordering : DR RACHEAL STEELE M.D. Admission #: [id number] Family : Order #: [id number] CLICK HERE TO VIEW EXAM RADIOLOGY REPORT [...] for years. The patient is retired from [employer] after working 42 years. The patient denies [...] any additional information, and this was performed [facility]. See separate history and physical for medication [...] incompetent branch saphenous tributary/varicose veins. Bilateral incompetent clubhouse attendant veins. PHYSICAL EXAM: The right leg demonstrates [...] pulses were present bilaterally. IMPRESSION: 1. Bilateral tgfa-lq-coajznkk great saphenous vein and mild right small [...] by: Racheal Steele MD on 01/21/2022 at 11:46[facility] HospitalVC VENOUS REFLUX MARIE Ton 83-20-4588LO VENOUS REFLUX MARIE LMTPatient: CARLOS CARABALLO Exam Date: 01/21/2022 : 1955 Gender:M Ordering : DR RACHEAL STEELE M.D. Admission #: [id number] Family : DR NATHALY BOONE . Order #: [id number] CLICK HERE TO VIEW EXAM RADIOLOGY REPORT [...] Compressibility: Normal. Flow: Mild deep venous reflux. Lead Teller: Post/prox calf 5.9mm, 0.7s reflux. Prox/med calf [...] by: Racheal Steele MD on 01/21/2022 at 10:40[facility] POINT OF CARE GLUCOSEon 03-07-5275Jdmithi [Mass/Vol]87 mg/cWIkybil76-288AogGrand Lake Joint Township District Memorial HospitalComment on above:Performed By: #### POCGLUC ####[facility] [address] [place], [place] [address]Ic. Juliet Wilkes SURGICAL PATHOLOGYon 46-62-7174WKRAJYLJ PATHOLOGYSpecimen #: [id number] Submitting Physician: JULIET WILKES M.D. FINAL DIAGNOSIS [place], [place]; [id number] (12/07/2020) Liver, mass , biopsy (A1, A2, [...] do not hesitate to contact us at [phone] with questions or if additional follow up information becomes available. This case was reviewed in conjunction with the GI pathology fellow, Apoorva Diallo MD. The following stains were performed at the [facility] in order to further characterize this [...] tests have been determined by [facility]'s Frankie JRusty [facility] [place] ([facility]) in a manner consistent with CLIA requirements. One or more of these tests have not been cleared or approved by the FDA. [facility] is regulated under CLIA as qualified to perform high-complexity testing. These tests are used for clinical purposes. They should not be regarded as investigational or for research. Nicolasa Cheema M.D. (Electronic Signature) SPECIMEN SUBMITTED A: 12 slides [id number] CLINICAL DATA Mass Date of Report: 03/27/2021 Date of Procedure: 03/16/2021 Date of Receipt: 03/15/2021 Submitted by: JULIET WILKES M.D. Location: Diagnostic interpretation performed at [place] [address]. CLIA Number: [id number] [facility] Comment on above:Performed By: #### S #### See report for performing lab information. Vital Signs Date TimeVital SignValuePerforming PbtasiwngXgzzzgtn00-00-5242 08:53-0400Body fecvjo160 cmTulio Ruggiero MD Work Phone: [facility] [id number] 08:53-0400Body mass index (BMI) [Ratio]37.62 kg/m2Tulio Ruggiero MD Work Phone: [facility] JosephOaydowbclo61-20-3749 08:53-0400Body temperature 97.11 [degF]Tulio Ruggiero MD Work Phone: noAud[facility] CenterDezrrpzcge90-97-8665 08:53-0400Body tlkyqz972.9 kgTulio Ruggiero MD Work Phone: noAud[facility] CenterYwfyzywfem01-13-9407 08:53-0400Diastolic blood mm[Hg]Tulio Ruggiero MD Work Phone: [facility] JosephHagcuytaxx68-97-6840 08:53-0400Heart rate84 /min Tulio Ruggiero MD Work Phone: [facility] JosephGcynqwjvim08-99-6096 08:53-0400Respiratory rate20 /minTulio Ruggiero MD Work Phone: [facility] JosephLqhmjozowv86-56-6883 08:53-7045TsN5% (BldA) [Mass fraction]98 %Tulio Ruggiero MD Work Phone: [facility] JosephRadsiyubkk27-77-1727 08:53-0400Systolic blood ohyzskoc998 mm[Hg]Tulio Ruggiero MD Work Phone: [facility] JosephEcicubvxny26-41-7259 13:22-0400Body semfmd833 cm Tulio Ruggiero MD Work Phone: [facility] JosephYcgnxumojt40-25-1966 13:22-0400Body mass index (BMI) [Ratio]38.26 kg/m2Tulio Ruggiero MD Work Phone: [facility] JosephRjbkwwahya45-50-0839 13:22-0400Body temperature 97.11 [degF]Tulio Ruggiero MD Work Phone: [facility] JosephZrhlsiqcuy19-53-2665 13:22-0400Body swiggi699.17 kgTulio Ruggiero MD Work Phone: [facility] JosephWhdkkcgkst28-13-7093 13:22-0400Diastolic blood ygpqlaji28 mm[Hg]Tulio Ruggiero MD Work Phone: [facility] JosephKnmfdyeaau56-58-9951 13:22-0400Heart rate97 /min Tulio Ruggiero MD Work Phone: [facility] JosephJeppbpdpuy91-26-4757 13:22-0400Respiratory rate18 /minTulio Ruggiero MD Work Phone: [facility] JosephHwccaaqowh59-99-6363 13:22-0595HsR1% (BldA) [Mass fraction]99 %Tulio Ruggiero MD Work Phone: [facility] JosephWvouiqtbrm36-64-4196 13:22-0400Systolic blood yzxtfsru052 mm[Hg]Tulio Ruggiero MD Work Phone: [facility] JosephFqxhffhlod45-40-5814 09:11-0500Body mass index (BMI) [Ratio]37.75 kg/m2Tulio Ruggiero MD Work Phone: [facility] JosephXvdzuthqgp50-91-2200 09:11-0500Body temperature 98.4 [degF]Tulio Ruggiero MD Work Phone: [facility] JosephSbsqcecwxf38-71-5342 09:11-0500Body ujkoiy453.36 kgTulio Ruggiero MD Work Phone: [facility] JosephJulyulrvgn06-10-8277 09:11-0500Diastolic blood yfkihfza30 mm[Hg]Tulio Ruggiero MD Work Phone: [facility] JosephMashjmdere78-87-4728 09:11-0500Heart rate96 /min Tulio Ruggiero MD Work Phone: [facility] JosephNkvomlhdew26-44-2064 09:11-0500Respiratory rate18 /minTulio Ruggiero MD Work Phone: [facility] JosephYacazgorzu91-62-0121 09:11-2107QrY7% (BldA) [Mass fraction]96 %Tulio Ruggiero MD Work Phone: [facility] JosephUvhscjuabm77-16-5973 09:11-0500Systolic blood bpylrkbn168 mm[Hg]Tulio Ruggiero MD Work Phone: [facility] JosephSscawvrijz47-98-3027 08:56-0500Blood Pressure LocationJEFRANKIE ABREU [facility]11-14-2024 08:56-0500Body ejgxvaevbof84.6 [degF]LIZ ABREU [facility]11-14-2024 08:56-0500Diastolic blood dmjsgewt49 mm[Hg]LIZ ABREU [facility]11-14-2024 08:56-0500Heart rate79 /minJENNIFER DAVID [facility]11-14-2024 08:56-0500Respiratory rate18 /minJENNIFER DAVID [facility]11-14-2024 08:56-0500Systolic blood nxociflw575 mm[Hg]LIZ DAVID [facility]04-23-2024 08:38-0400Blood Pressure LocationJENNIFER DAVID [facility]04-23-2024 08:38-0400Diastolic blood tbjopise52 mm[Hg]LIZ DAVID [facility]04-23-2024 08:38-0400Heart rate80 /minJENNIFER DAVID [facility]04-23-2024 08:38-0400Respiratory rate16 /minJENNIFER DAVID [facility]04-23-2024 08:38-0400Systolic blood pwhrrvab820 mm[Hg]LIZ DAVID [facility]11-21-2023 09:59-0500Blood Pressure LocationJENNIFER DAVID [facility]11-21-2023 09:59-0500Diastolic blood alkaqkko03 mm[Hg]LIZ DAVID [facility]11-21-2023 09:59-0500Heart rate70 /minJENNIFER DAVID [facility]11-21-2023 09:59-0500Respiratory rate16 /minJENNIFER DAVID [facility]11-21-2023 09:59-0500Systolic blood riphlmif834 mm[Hg]LIZ DAVID [facility]11-10-2022 09:45-0500Body cngqjo765.96 cmThomas Olexa Other [employer] Other 11-10-2022 09:45-0500Body mass index (BMI) [Ratio] 40.57 kg/m3Vxgmvs Olexa Other [employer] Other 11-10-2022 09:45-0500Body .34 kgThomas Olexa Other [employer] Other 01-25-2022 14:15-0500Body .96 cmThomas Olexa Other [employer] Other 01-25-2022 14:15-0500Body mass index (BMI) [Ratio] 40.64 kg/d3Htogyj [employer] Other [employer] Other 01-25-2022 14:15-0500Body ogodpk869.61 kgThomas Olexa Other [employer] Other 09-30-2021 10:30-0400Body pupvxt119.96 cmDavid Hykes Other [employer] Other 09-30-2021 10:30-0400Body mass index (BMI) [Ratio] 41.75 kg/y6Rorfshortensia Daniels Other [employer] Other 09-30-2021 10:30-0400Body .51 kgDaviezequiel Daniels Other [employer] Other 09-30-2021 10:30-0400Diastolic blood rkvbjyet06 mm[Hg] Racheal Daniels Other [employer] Other 09-30-2021 10:30-0400Systolic blood vargrzes282 mm[Hg] Racheal Daniels Other [employer] Other Encounters Encounter DateEncounter TypeCare ProviderFacilityStart: 47-12-0712rwfgezswfv Vika X OrzechFacility:EU BellevueStart: 03-06-2025 End: 21-41-4139QpbqxkJyvy Naderer MD Work Phone: [facility] FMComment on above: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 RadiologyComment on above:Aftercare following left knee joint replacement surgeryStart: 01-13-2025 End: 83-71-6317Qidragjyx Result EncounterTulio Ruggiero MD Work Phone: noms External Department UnsolicitedStart: 01-13-2025 End: 93-72-3280Igfjafbqi Result EncounterTulio Ruggiero MD Work Phone: noms External Department UnsolicitedStart: 01-12-2025 End: 38-89-2640Rrinzk flowsAracely Ruggiero MD Work Phone: [facility] CWM FMStart: 01-12-2025 End: 01-71-6245Megbzn flowsAracely Ruggiero MD Work Phone: [facility] FMStart: 01-12-2025 End: 76-86-6070Suegph outpatient visit 25 minutesTulio Ruggiero MD Work Phone: [facility] C[facility] FMComment on above:Type 2 diabetes mellitus with hyperglycemia, without long-term current use of insulin (HCC) (Primary Dx); Arthritis, gouty; Seasonal allergic rhinitis due to pollen; Primary insomnia; Degeneration of intervertebral disc of lumbar region with discogenic back pain; Class 2 severe obesity due to excess calories with serious comorbidity and body mass index (BMI) of37.0 to 37.9 in adult ([facility]); Type 2 diabetes mellitus with diabetic chronic kidney disease (HCC); Chronic kidney disease, stage 3a ([facility])Start: 01-12-2025 End: 71-14-0868trruwkdyplDSBS NADERERNot AvailableStart: 12-31-2024 End: 38-22-6774Khnnkoezz Result EncounterGeneric External Data ProviderNOMS External Department UnsolicitedStart: 12-31-2024 End: 07-65-9828Cdhjedycs Result EncounterGeneric External Data ProviderNOMS External Department UnsolicitedStart: 12-06-2024 End: 52-62-2430JnzpfxRsoa Naderer MD Work Phone: [facility] CWM FMComment on above:Polyneuropathy due to type 2 diabetes mellitus ([facility])Start: 11-08-2024 End: 24-95-1942JsdmcqKdwi Naderer MD Work Phone: [facility] FMComment on above:Male hypogonadismStart: 10-19-2024 End: 08-68-0927Sezrrn Radha Ruggiero MD Work Phone: [facility] FMComment on above:Annual physical exam (Primary Dx); Morbid obesity ([facility]); Polyneuropathy due to type 2 diabetes mellitus ([facility]); Type 2 diabetes mellitus with hyperglycemia, without long-term current use of insulin ([facility]); Arthritis, goutyStart: 10-19-2024 End: 03-48-3848Nngqcdm encounter procedureTulio Ruggiero MD Work Phone: [facility] Work Phone: Start: 10-13-2024 End: 56-32-4315Vbazil flowsAracely Ruggiero MD Work Phone: [facility] FMStart: 10-13-2024 End: 77-25-7170Rolgoe Thomas Ruggiero MD Work Phone: [facility] FMStart: 10-13-2024 End: 95-01-7620Uglhyx outpatient visit 15 minutesTulio Ruggiero MD Work Phone: [facility] FMComment on above:Abscess of abdominal wall (Primary Dx)Start: 10-13-2024 End: 02-65-9712alxwibtijlOPAF NADERERNot AvailableStart: 10-04-2024 End: 25-61-0818Phjmhmhcn Result EncounterGeneric External Data ProviderNOMS External Department UnsolicitedStart: 10-04-2024 End: 31-37-0626Erkjuqwgc Result EncounterGeneric External Data ProviderNOMS External Department UnsolicitedStart: 09-06-2024 End: 22-70-5045Shurjckdc Result EncounterGeneric External Data ProviderNOMS External Department UnsolicitedStart: 09-06-2024 End: 96-35-1954Omrvgvgjs Result EncounterGeneric External Data ProviderNOMS External Department UnsolicitedStart: 08-24-2024 End: 23-55-6430Azabmwyqw Result EncounterGeneric External Data ProviderNOMS External Department UnsolicitedStart: 08-24-2024 End: 07-96-6510Viwmiubdu Result EncounterGeneric External Data ProviderNOMS External Department UnsolicitedStart: 08-23-2024 End: 62-52-0873Pbmoqiajy Result EncounterGeneric External Data ProviderNOMS External Department UnsolicitedStart: 08-23-2024 End: 80-37-1356Tjmquzocd Result EncounterGeneric External Data ProviderNOMS External Department UnsolicitedStart: 08-19-2024 End: 49-43-4332Uacbdqrff Result EncounterGeneric External Data ProviderNOMS External Department UnsolicitedStart: 08-19-2024 End: 52-54-8056Hbvrdrmfv Result EncounterGeneric External Data ProviderNOMS External Department UnsolicitedStart: 08-07-2024 End: 86-71-1333QwujyiXvtf Naderer MD Work Phone: [facility] FMComment on above:Morbid obesity (CMS/HCC); 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); Type 2 diabetes mellitus with hyperglycemia, without long-term current use of insulin (CMS/HCC)Start: 08-05-2024 End: 71-63-3666Rwxyekmhn Result EncounterGeneric External Data ProviderNOMS External Department UnsolicitedStart: 08-05-2024 End: 35-59-4635Pfunkggqc Result EncounterGeneric External Data ProviderNOMS External Department UnsolicitedStart: 07-28-2024 End: 73-37-6473Polscf Radha Ruggiero MD Work Phone: noms [facility] FMComment on above:Type 2 diabetes mellitus with hyperglycemia, without long-term current use of insulin (CMS/HCC) (Primary Dx); Dyslipidemia (CMS/HCC); Class 2 severe obesity due to excess calories with serious comorbidity and body mass index (BMI) of37.0 to 37.9 in adult (CMS/HCC); Encounter for long-term current use of medication; Screening PSA (prostate specific antigen)Start: 07-26-2024 End: 62-32-4040pstjtecrxkYsftbBlake Valencia DOFacility:[facility] Start: 07-23-2024 End: 11-19-0066lupgvrqbqbCuhpg Jay Mathews DOFacility:[facility] Start: 07-20-2024 End: 53-53-1689Njhgpapsb Result EncounterGeneric External Data ProviderNOMS External Department UnsolicitedStart: 07-20-2024 End: 80-91-0665Dbxiedfxj Result EncounterGeneric External Data ProviderNOMS External Department UnsolicitedStart: 07-15-2024 End: 93-69-3349Yfutqr flowsAracely Ruggiero MD Work Phone: [facility] FMStart: 07-15-2024 End: 11-30-3464Ltgpyv Thomas Ruggiero MD Work Phone: noms [facility] FMStart: 07-15-2024 End: 68-02-5703Pikhtbv encounter procedureTulio Ruggiero MD Work Phone: [facility] Work Phone: Start: 07-15-2024 End: 79-81-1607Tdhhwalg preventive med est patient 65yrs& olderTulio Ruggiero MD Work Phone: noms [facility] FMComment on above:Annual physical exam (Primary Dx); Encounter for preoperative assessment; Type 2 diabetes mellitus with hyperglycemia, without long-term current use of insulin ([facility]); Arthritis, gouty; Polyneuropathy due to type 2 diabetes mellitus ([facility]); Class 2 severe obesity due to excess calories with serious comorbidity and body mass index (BMI) of37.0 to 37.9 in adult ([facility]); Dyslipidemia ([facility]/H[facility])Start: 07-15-2024 End: 35-85-9558Eypddhtiksrt Sal Ruggiero MD Work Phone: [facility] HealthcareStart: 07-15-2024 End: 63-26-1154kpxfnrkwulVMCO NADERERNot AvailableStart: 06-28-2024 End: 90-73-2109Bjrpgvfdz Result EncounterGeneric External Data ProviderNOMS External Department UnsolicitedStart: 06-28-2024 End: 47-37-5348Rcirxwnnw Result EncounterGeneric External Data ProviderNOMS External Department UnsolicitedStart: 06-23-2024 End: 46-54-8328Gooteqcqz Result EncounterGeneric External Data ProviderNOMS External Department UnsolicitedStart: 06-23-2024 End: 19-17-2277Fvlnxzygm Result EncounterGeneric External Data ProviderNOMS External Department UnsolicitedStart: 05-27-2024 End: 51-27-1731ywwgekclumJFGVPSXF E PERRYFacility:[facility] [place]vueStart: 05-27-2024 End: 21-73-8785Abevnhc encounter procedureJENNIFER E DAVID [facility] start: 05-18-2024 End: 87-81-3912Xwhlsgrly Result EncounterGeneric External Data ProviderNOMS External Department UnsolicitedStart: 05-18-2024 End: 02-89-3379Nqkigimuh Result EncounterGeneric External Data ProviderNOMS External Department UnsolicitedStart: 04-08-2024 End: 11-43-2798CqmxvrTcgf Naderer MD Work Phone: [facility] FMComment on above:Polyneuropathy due to type 2 diabetes mellitus ([facility])Start: 04-06-2024 End: 67-33-1981KglmhsIore Naderer MD Work Phone: [facility] FMComment on above:Male hypogonadismStart: 02-12-2024 End: 61-97-7580Otdlxicgu Result EncounterGeneric External Data ProviderNOMS External Department UnsolicitedStart: 02-12-2024 End: 43-05-3984Xbwtryocg Result EncounterGeneric External Data ProviderNOMS External Department UnsolicitedStart: 11-04-2023 End: 02-18-8520Onnuvzg encounter procedureJENNIFER E DAVID [facility] start: 10-09-2023 End: 03-10-0485Pnmzrfpyk Result EncounterGeneric External Data ProviderNOMS External Department UnsolicitedStart: 10-09-2023 End: 93-76-7232Nydnkvlvd Result EncounterGeneric External Data ProviderNOMS External Department UnsolicitedStart: 47-65-7869Zbbwyry encounter procedureTulio Ruggiero MD Work Phone: [facility] HealthcareStart: 07-05-2023 End: 85-70-9966Yictfwrhj Result EncounterGeneric External Data ProviderNOMS External Department UnsolicitedStart: 07-05-2023 End: 92-70-2084Elesycxnc Result EncounterGeneric External Data ProviderNOMS External Department UnsolicitedStart: 07-02-2023 End: 89-68-3444Pyhxvrlyw Result EncounterGeneric External Data ProviderNOMS External Department UnsolicitedStart: 07-02-2023 End: 18-29-1983Jidgidsgh Result EncounterGeneric External Data ProviderNOMS External Department UnsolicitedStart: 06-03-2023 End: 76-59-4710Kundgtm encounter procedureJENNIFER E DAVID [facility] start: 12-05-2022 End: 53-04-4435eawzcpglckGJ KIM E KNIGHT .Facility:Q0Budvw: 12-03-2022 End: 49-65-3448fupuymffjkLI KIM E KNIGHT .Facility:D4Cxiyb: 11-29-2022 End: 13-08-3504yffrklbvqrKJJDNIAVDCYG LAKSHMIPATHY .Facility:L9Rwpiz: 11-12-2022 End: 62-05-3974owvfclfvfoTU KIM E KNIGHT .Facility:P7Ldjux: 11-05-2022 End: 65-24-9968jxrxjxxuuvPP KIM E KNIGHT .Facility:P8Dsrwn: 10-28-2022 End: 43-82-3796prsmgruifdVM KIM E KNIGHT .Facility:W8Zzjct: 10-21-2022 End: 05-27-8279fwkyaukhsvUW KIM E KNIGHT .Facility:H0Rgjed: 05-27-4021Unjdtciln for preprocedural cardiovascular examinationPETER D [facility]itan Hospitaltart: 88-82-4124Nzjtcznez for preprocedural laboratory examinationPETER D [facility] Hospitaltart: 14-07-3769usjyshigzbND KIM E KNIGHT . Facility:O6Hqdjx: 10-10-2022 End: 61-56-2610dqvcsrmrzkSX KIM E KNIGHT .Facility:P3Yswep: 10-10-2022 End: 09-92-8024Rnjeccxnk for preprocedural cardiovascular examinationDR FELISA BERRIOS .Facility:N5Gzsrx: 09-24-2022 End: 68-95-4799ojyzehpecmXR KIM E KNIGHT .Facility:Z7Kizgs: 09-20-2022 End: 10-82-6078sdnzycciehJX KIM E KNIGHT .Facility:O0Txryk: 09-10-2022 End: 55-75-5856vzqcjjptopEI KIM E KNIGHT .Facility:T1Grnch: 08-26-2022 End: 99-41-4521hpqzhckmdwIY KIM E KNIGHT .Facility:I7Ombwy: 08-06-2022 End: 86-23-9392oepsjxylarSYNWM D [facility]cility:X1Musby: 07-31-2022 End: 45-17-2806hzuewvgeftUVVWSLIMemorial Hospitaltart: 07-31-2022 End: 53-74-3092ehmlbtuxzgWQ NATHALY BOONE .Facility:L7Herbt: 07-25-2022 End: 69-50-6661lziwqemopwIGNL SOLIS .Facility:T3Vgvfp: 07-24-2022 End: 12-49-9938djkirlembaKYMWJ D [facility] Hospitalcility:I3Gdqer: 07-23-2022 End: 66-59-3083hjtgacvxhoXD KIM E KNIGHT .Facility:A9Ykgwu: 07-22-2022 End: 74-16-3767dxruhezlizIS KIM E KNIGHT .Facility:Y9Mgnzp: 81-61-8031bmudqixovs DR NATHAYL BOONE .Facility:M5Ecjkq: 06-28-2022 End: 02-39-4113bkaunsympcLP EHAB ELTAHAWYFacility:J1Nofuf: 06-10-2022 End: 54-29-1381jjnpkfobdjCA FELISA BERRIOS .Facility:Y2Kqsme: 05-27-2022 End: 47-09-6395lnepavhbqyPQ RACHEAL Ayala WESTFacility:O4Clvvd: 05-23-2022 End: 34-40-5399lrqegdwxizWhxuop [employer] Other [employer] Other Start: 57-77-5574Bvgktj outpatient visit 15 minutes Alejandra CainFPG [facility] OrthopedicsStart: 05-03-2022 End: 25-03-0845ueptgksvsiTZ FELISA BERRIOS .Facility:R4Insbs: 04-23-2022 End: 88-45-4115lpctvlkxteUB NATHALY BOONE .Facility:Z4Tezrc: 04-08-2022 End: 15-71-8733ssftwgnjzfEQ RACHEAL Ayala WESTFacility:S8Ejypd: 04-04-2022 End: 29-81-2346hedpadgizhNNUM ALEX .Facility:O9Purww: 04-03-2022 End: 85-66-3578eoapxzfkmnEI RACHEAL Ayala WESTFacility:C2Nyklh: 03-25-2022 End: 96-67-7724qwyrloaahvPG RACHEAL V WESTFacility:S3Vduzh: 03-19-2022 End: 02-92-1746bowslbbujnFV RACHEAL V WESTFacility:K0Zzxrv: 02-18-2022 End: 82-46-3855bfyarfggjsJT RACHEAL Ayala WESTFacility:E3Awqgj: 34-56-1904rxotnizkshJV FELISA BERRIOS .Facility:E1Rnmgt: 02-14-2022 End: 90-90-2957jphspgkmrmRJ FELISA BERRIOS .Facility:S8Zzhxe: 02-13-2022 End: 89-81-7073xdytajcqlcCX FELISA BERRIOS .Facility:X7Kzmjw: 02-06-2022 End: 84-72-1654rsplgcrjnzVT FELISA BERRIOS .Facility:F0Ghyde: 02-05-2022 End: 53-43-7308phjcswgfdgPS FELISA BERRIOS .Facility:C9Hlhwc: 01-30-2022 End: 87-09-1532tfraxwnmbtLV FELISA Ann BERRIOS .Facility:M7Rzrgs: 01-22-2022 End: 56-12-8411wnnlzwxmjyBW FELISA Ann BERRIOS .Facility:P5Varbn: 01-21-2022 End: 13-53-3702wmiscfbskmGR KIM Ann BERRIOS .Facility:F6Onuok: 01-08-2022 End: 31-19-6963wisaxdinbzBO KIM Ann BERROIS .Facility:T7Oglyf: 08-07-2021 End: 49-03-8988ochqwmsndgTzewxc [employer] Other [employer] Other Start: 45-49-4911Vlaofi outpatient visit 15 minutes Alejandra OlexaFPG [facility] BellevueStart: 32-12-2228Xkvfon outpatient visit 15 minutesDavid HykesFPG Gastroenterology Procedures DateProcedureProcedure DetailPerforming ClinicianStart: 97-03-5889YT KNEE LEFT (3 VIEWS)Generic External Data ProviderStart: 72-33-1507Bakcgxjndm examination knee 3 viewsDaniele Valencia DO Work Phone: Start: 67-74-4621KPH MICROALB CREAT RATIO RANDOMMarmilan Ruggiero MD Work Phone: Start: 96-52-6602EYAI PSA, DIAGNOSTICGeneric External Data ProviderStart: 75-49-0487Ofpeaymrho examination knee 1/2 viewsGeneric External Data ProviderStart: 14-20-1904Whlyuazdkm examination knee 1/2 views Generic External Data ProviderStart: 12-91-3037LWO BASIC METABOLIC PANELGeneric External Data ProviderStart: 14-24-8089Ygzjldjrzi exam knee complete 4/more viewsGeneric External Data ProviderStart: 03-13-4422ZEX CBC WITH AUTO DIFF Generic External Data ProviderStart: 81-76-3069Eipjfxjc screenGeneric Provider Start: 00-80-5885UCY TYPE AND SCREENGeneric External Data ProviderStart: 80-04-1640Pjgbrhct screenGeneric ProviderStart: 03-83-7659UAF TYPE AND SCREEN Generic External Data ProviderStart: 16-53-0364MV CHEST 2VGeneric External Data ProviderStart: 42-83-2602TZM MISCELLANEOUS TESTGeneric External Data Provider Start: 36-19-4464HPI UA (CLEAN/CATCH) INSTRUCTIONAL DESIGN SPECIALIST/MICRO IF IND.Generic External Data ProviderStart: 99-36-6477EAF CBC WITH AUTO DIFFGeneric External Data Provider Start: 07-20-2024 End: 63-92-7008MRT 12-LEADGeneric External Data ProviderStart: 53-02-8070LOMO SCREENING CULTUREGeneric External Data ProviderStart: 74-74-1042QZ ECHO DOPPLER COMPLETEGeneric External Data ProviderStart: 04-43-6186Gcktbxyeyn exam knee complete 4/more viewsGeneric External Data ProviderStart: 52-68-6861TW ABDOMEN 1VGeneric External Data ProviderStart: 56-99-9466JD FOOT LT MIN 3VGeneric External Data ProviderStart: 03-98-0768GP FOOT LT MIN 3VGeneric External Data ProviderStart: 67-97-2127AG FOOT LT WO CONGeneric External Data ProviderStart: 04-53-5369PL FOOT LT MIN 3VGeneric External Data ProviderStart: 32-55-4510RTB screeningDR RACHEAL Monk on above:Performed By: #### PSAD #### [facility] [address] [place] [address] Dr. Juliet Guidoart: 44-92-1912NX guided biopsyJENNIFER DAVID Comment on above:LIVER. NO SEDATION.Start: 07-15-2016 ColonoscopyTulio Ruggiero MD Work Phone: Arthroscopy of kneeJENNIFER DAVID Bilateral cataracts (disorder)LIZ DAVID H/O: vasectomyJENNIFER DAVID Titanium (substance)LIZ DAVID Comment on above:ToeTonsillectomyJENNIFER DAVID Plan of Treatment DateCare ActivityDetailAuthorStart: 04-25-7566Jhtwygcexzj Syncytial Virus (RSV) or age 60 yrs+ (1 - 1-dose 75+ series)Respiratory Syncytial Virus (RSV) or age 60 yrs+ (1 - 1-dose 75+ series)[facility]burgStart: 45-09-5743Hpuysejsf for malignant neoplasm of colonNOTN HealthcareStart: 74-73-4476Fixrn screening for proteinDiabetes: Urine Protein ScreeningNOTN HealthcareStart: 08-16-2025 End: 14-43-3035Ukinsnf encounter fjbyoagky24/03/2026 9:00 AM EST Office Visit [facility] [address] [place] [id number] Tulio Ruggiero MD [address] [place] [id number] [facility] FMStart: 58-22-7954Efyokiarx vaccinationInfluenza Vaccine (#1)[facility] HealthcareStart: 01-00-1258Xexazist screeningDiabetes: Retinopathy Screening [facility] HealthcareStart: 87-06-4599Jnubkdxua vaccinationFlu vaccine (#1)[facility]burgStart: 29-53-3514Tadcq screening for proteinDiabetes: Urine Protein ScreeningM[facility] St. JosephStart: 01-12-2025 End: 21-39-7249Tixgivsnkl A1c/Hemoglobin.total in BloodHemoglobin A1c Lab Routine Type 2 diabetes mellitus with hyperglycemia, without long-term current use of insulin (HCC) Expected: 01/12/2025 (Approximate), Expires: 01/12/2026[facility] HealthcareComment on above:Expected: 01/12/2025 (Approximate), Expires: 01/12/2026Start: 01-12-2025 End: 02-93-8625Wgwrevjaubjr/Creatinine panel in random UrineMicroalbumin / creatinine, urine ratio Lab Routine Type 2 diabetes mellitus with hyperglycemia, without long-term current use of insulin (HCC) Expected: 01/12/2025 (Approximate), Expires: 01/12/2026[facility] Work Phone: Comment on above:Expected: 01/12/2025 (Approximate), Expires: 01/12/2026Start: 01-12-2025 End: 45-12-8059Xbdqoca encounter procedureNO [facility] FMComment on above:Arrived Start: 10-19-2024 End: 43-20-4195Etewjjb antibody IgGRubeola antibody IgG Lab Routine Annual physical exam Expected: 10/19/2024 (Approximate), Expires: 10/19/2025[facility] Work Phone: Comment on above:Expected: 10/19/2024 (Approximate), Expires: 10/19/2025Start: 10-13-2024 End: 57-95-4351Vchxowa encounter vlfjwnavn85/02/2025 1:15 PM EDT Office Visit [facility] [address] [place] [id number] Tulio Ruggiero MD [address] [place] [address] ArrivedNOMARY [facility] FMComment on above:ArrivedStart: 56-71-7829XONHW-19 Vaccine ( season)COVID-19 Vaccine ( season)[facility]: 08-05-2024 End: 63-81-1700Djefa metabolic 1998 panel - Serum or PlasmaBasic metabolic panel Lab Routine Encounter for long-term current use of medication Expected: 2024 (Approximate), Expires: 08/05/2025[facility] HealthcareComment on above:Expected: 08/05/2024 (Approximate), Expires: 08/05/2025Start: 08-05-2024 End: 26-82-1502ZXU W Auto Differential panel - BloodCBC and differential Lab Routine Encounter for long-term current use of medication Expected: 08/05/2024 (Approximate), Expires: 08/05/2025[facility] HealthcareComment on above:Expected: 08/05/2024 (Approximate), Expires: 08/05/2025Start: 08-05-2024 End: 88-11-6426Rhexaqqbpe A1c/Hemoglobin.total in BloodHemoglobin A1c Lab Routine Type 2 diabetes mellitus with hyperglycemia, without long-term current use of insulin ([facility]) Expected: 08/05/2024 (Approximate), Expires: 08/05/2025 [facility] Work Phone: Comment on above:Expected: 08/05/2024 (Approximate), Expires: 08/05/2025Start: 08-05-2024 End: 84-77-4285Fswosmq function 2000 panel - Serum or PlasmaHepatic function panel Lab Routine Encounter for long-term current use of medication Expected: 08/05/2024 (Approximate), Expires: 08/05/2025[facility] HealthcareComment on above: Expected: 08/05/2024 (Approximate), Expires: 08/05/2025Start: 08-05-2024 End: 64-69-8442Bhlwl 1996 panel - Serum or PlasmaLipid panel Lab Routine Dyslipidemia ([facility]) Expected: 08/05/2024 (Approximate), Expires: 08/05/2025 [facility] HealthcareComment on above:Expected: 08/05/2024 (Approximate), Expires: 08/05/2025Start: 08-05-2024 End: 38-93-4636Agedccsr specific Ag [Mass/volume] in Serum or PlasmaPSA Lab Routine Screening PSA (prostate specific antigen) Expected: 08/05/2024 (Approximate), Expires: 08/05/2025[facility] HealthcareComment on above:Expected: 08/05/2024 (Approximate), Expires: 08/05/2025Start: 08-05-2024 End: 52-78-7706Fqselupkswo [Units/volume] in Serum or PlasmaTSH Lab Routine Class 2 severe obesity due to excess calories with serious comorbidity and body mass index (BMI) of 37.0 to 37.9 in adult ([facility]) Expected: 08/05/2024 (Approximate), Expires: 08/05/2025[facility] HealthcareComment on above:Expected: 08/05/2024 (Approximate), Expires: 08/05/2025Start: 65-36-7817Girqqybtsn A1c measurementDiabetes: Hemoglobin C5QKFNN HealthcareStart: 07-15-2024 End: 21-81-4031Dxxub metabolic 1998 panel - Serum or PlasmaBasic metabolic panel Lab Routine Annual physical exam Expected: 07/15/2024 (Approximate), Expires: 07/15/2025[facility] HealthcareComment on above:Expected: 07/15/2024 (Approximate), Expires: 07/15/2025Start: 07-15-2024 End: 97-37-3479MOK W Auto Differential panel - BloodCBC and differential Lab Routine Annual physical exam Expected: 07/15/2024 (Approximate), Expires: 0 07/15/2025[facility] HealthcareComment on above:Expected: 07/15/2024 (Approximate), Expires: 07/15/2025Start: 07-15-2024 End: 93-10-2404Rawhxjhusl A1c/Hemoglobin.total in BloodHemoglobin A1c Lab Routine Annual physical exam Expected: 07/15/2024 (Approximate), Expires: 07/15/2025[facility] Work Phone: Comment on above:Expected: 07/15/2024 (Approximate), Expires: 07/15/2025Start: 07-15-2024 End: 49-44-8368Vsgfadk function 2000 panel - Serum or PlasmaHepatic function panel Lab Routine Annual physical exam Expected: 07/15/2024 (Approximate), Expires: 07/15/2025[facility] HealthcareComment on above:Expected: 07/15/2024 (Approximate), Expires: 07/15/2025Start: 07-15-2024 End: 61-50-5382Gnfxu 1996 panel - Serum or PlasmaLipid panel Lab Routine Annual physical exam Expected: 07/15/2024 (Approximate), Expires: 07/15/2025[facility] HealthcareComment on above:Expected: 07/15/2024 (Approximate), Expires: 07/15/2025Start: 07-15-2024 End: 50-19-0127Ngoedtud specific Ag [Mass/volume] in Serum or PlasmaPSA Lab Routine Annual physical exam Expected: 07/15/2024 (Approximate), Expires: 07/15/2025[facility] HealthcareComment on above:Expected: 07/15/2024 (Approximate), Expires: 07/15/2025Start: 07-15-2024 End: 46-45-3891Ldomidtsdiw [Units/volume] in Serum or PlasmaTSH Lab Routine Annual physical exam Expected: 07/15/2024 (Approximate), Expires: 07/15/2025[facility] HealthcareComment on above:Expected: 07/15/2024 (Approximate), Expires: 07/15/2025Start: 07-15-2024 End: 60-61-1172Vaqgvjs encounter procedureNOMS CWM FMComment on above:Arrived Start: 57-34-7549Txchbdbeh vaccinationInfluenza Vaccine (#1)[facility] Start: 24-55-2698Mzuvvwrahi A1c measurementDiabetes: Hemoglobin R8WTELI HealthcareStart: 14-50-3592Ysumucilvpam 50+ years Vaccine (2 of 2 - PCV) Pneumococcal 50+ years Vaccine (2 of 2 - PCV)[facility]Start: 10-18-4249Ruzjncbniprm Vaccine: 65+ Years (2 of 2 - PCV)Pneumococcal Vaccine: 65+ Years (2 of 2 - PCV)[facility] HealthcareStart: 06-04-9021Llrsmeam vaccine (1 of 2)Shingles vaccine (1 of 2)[facility]Start: 96-49-5627Ycllpxxqn for malignant neoplasm of colonRiverside Doctors' Hospital WilliamsburgStart: 14-81-4334Ttqwa panelLipidsRiverside Doctors' Hospital WilliamsburgStart: 29-38-0394YAtV/Tdap/Td vaccine (1 - Tdap)DTaP/Tdap/Td vaccine (1 - Tdap)[facility]burgStart: 1975 Urine screening for proteinDiabetes: Urine Protein ScreeningMosaic Life Care at St. Joseph Start: 41-85-3703Copwtwyee C screeningHepatitis C screenRiverside Doctors' Hospital [facility] Start: 97-30-1660Bealwnbbkx ScreenDepression [facility] Start: 28-39-8222Elrifafge for malignant neoplasm of colonLAYTON [facility]OS[facility] Immunizations Immunization DateImmunizationNotesCare EhyasvegPibfmlof81-14-7783jrmrwrftj virus vaccine, unspecified formulationJENNIFER DAVID [facility]10-08-2023SARS-CoV-2 mRNA (tozinameran 5y-11y) vaccineJENNIFER DAVID [phone]-YrswdACMC Healthcare System on above: Result Comment: covid 19 mRNA (cvs)32-59-0630wyjifvhdh virus vaccine, unspecified formulationTulio Ruggiero MD Work Phone: [facility] JosephKyxybojwvl18-61-8990yfsdcopac virus vaccine, unspecified formulationJENNIFER DAVID [facility]09-10-2022SARS-CoV-2 (COVID-19) mRNAMUL.ORD![id number] DAVID [facility]04-12-2022SARS-CoV-2 mRNA (kmrpgzlhtdn-qxgo-qoegidv) vaccineJENNIFER DAVID [facility]11-14-2021pneumococcal polysaccharide vaccine, 23 valentJENNIFER DAVID [facility]10-24-2021SARS-CoV-2 (COVID-19) mRNA BNT-162b2 vaxJENNIFER DAVID [facility] on above:Result Comment: 2022-05-29: LIH2394-07-1782kdvyugjyl virus vaccine, unspecified formulationJENNIFER DAVID [facility]03-08-2021SARS-CoV-2 (COVID-19) mRNA BNT-162b2 vaxJENNIFER DAVID General Surgery Stmzuaiu80-90-8178armaiewdu virus vaccine, unspecified formulationJENNIFER DAVID General Surgery Hsmvisvb00-13-0871epyungbcj virus vaccine, unspecified formulationJENNIFER DAVID [facility]10-08-2018influenza virus vaccine, unspecified formulationJENNIFER DAVID [facility]09-11-2018influenza virus vaccine, unspecified formulationJENNIFER DAVID [facility]10-19-2013influenza virus vaccine, unspecified formulationJENNIFER DAVID [facility] Payers DatePayer CategoryPayerPolicy [id number] [id number] 2023Medicare2023 [id number] [id number] [id number] 2.16.840.1.032847.19 [id number] [id number] 2.16.840.1.259271.3.57[id number] 2.16.840.1.404065.3.57[id number] 2.16.840.1.618743.3.57[id number] 2.16.840.1.462675.3.57[id number] 2.16.840.1.378988.3.57[id number] 2.16.840.1.600374.3.579.[id number] 2.16.840.1.910946.3.57[id number] 2.16.840.1.788621.3.57[id number] 2.16.840.1.265268.3.579.2.43345-27-0496Rkoclnx6010590 2.16.840.1.023717.3.579.2.22488-83-8635Xjubteg7429708 2.16.840.1.096509.3.579.2.21935-46-0840Dzniyqi0681064 2.16.840.1.929329.3.579.2.[id number] 2.16.840.1.582146.3.579.2.64754-54-1405Zfnbbls9251968 2.16.840.1.734093.3.579.2.94063-32-8656Wyjamoe0596359 2.16.840.1.158293.3.579.2.34139-82-2829Zfgjonw7442535 2.16.840.1.789293.3.579.2.35232-02-9549Jzplsnt9023625 2.16.840.1.879198.3.579.2.39173-54-2416Tqsdupa5102698 2.16.840.1.091351.3.57[id number] 2.16.840.1.573484.3.57[id number] 2.16.840.1.510950.3.57[id number] 2.16.840.1.380520.3.579.2.06844-19-0477Ejnyphg4459839 2.16.840.1.053317.3.579.2.57759-67-6064Qcgnheu9936302 2.16.840.1.775705.3.579.2.00814-32-6074Qdmbrae9659378 2.16.840.1.647659.3.579.2.87941-57-2597Tgxguke8012313 2.16.840.1.420040.3.579.2.22246-18-4336Svnomto0169041 2.16.840.1.564095.3.579.2.44291-95-2275Rnhsssv6158941 2.16.840.1.705004.3.579.2.19341-76-6614Qlaerjp5503752 2.16.840.1.238965.3.579.2.05788-87-7864Qabmmyf5449131 2.16.840.1.316040.3.579.2.86699-90-5482Ahoqiro5758067 2.16.840.1.755895.3.579.2.72262-97-2741Wmgmnkh2410367 2.16.840.1.809900.3.579.2.33836-52-8102Esdcwwl3513418 2.16.840.1.849241.3.579.2.83878-61-9554Barrjpk1872515 2.16.840.1.262665.3.579.2.40340-73-1019Jvqkvcw8742273 2.16.840.1.683395.3.57[id number] 2.16.840.1.551376.3.579.2.46438-68-3151Iiackip4467260 2.16.840.1.568120.3.579.2.95961-82-4502Strbtwa0214500 2.16.840.1.348108.3.579.2.08638-97-8919Ebyndxp3218387 2.16.840.1.091593.3.579.2.43517-19-4868Isklskx2262747 2.16.840.1.797059.3.579.2.01605-94-3180Wkhnoez8883475 2.16.840.1.314532.3.579.2.76554-17-7766Cnwprkf586021014 2.16.840.1.103629.3.579.2.2[id number] 2.16.840.1.039937.3.579.2.70209-05-3113Wdpzjtl54634864 2.16.840.1.088642.3.579.2.349063-15-4533Dvtfmin8139966 2.16.840.1.521783.3.579.2.764510-13-7201Wpkurrn6094939 2.16.840.1.115871.3.579.2.843397-53-0478Yhehmhy69087015 2.16.840.1.846879.3.579.2.29996-54-6364Nvichfi27692280 2.16.840.1.018935.3.579.2.48983-19-0993Wvemrvp72255547 2.16.840.1.685527.3.579.2.727 Social History DateTypeDetailFacilityStart: 01-12-2024 End: 28-74-0327[facility] Campustart: 03-10-2023 End: 22-97-0944Aryqifp smoking statusNever smoked tobacco (finding)[facility] Hospitaltart: 81-43-2772Qwxqjif smoking statusNeverExecutive Urology [facility] Hospitaltart: 76-72-9470Fvcvzom use and exposureSmokeless tobacco non-userNOMS Healthcare Start: 01-12-2024 End: 65-04-0517Eaulksh of Social functionNOMS HealthcareStart: 06-12-8668Tnq assigned at [facility]Not on [facility] HealthcareTobacco smoking status NHISTobacco smoking consumption unknownR[facility]ide Doctors' [facility]burgStart: 02-06-9929DkuXyla (finding)[facility] Functional Status QqluEsmnwjbnwbFqipzjJnnxnlvk17-99-2799Twlpresffg StatusN/AExec[facility]04-23-2024Functional StatusN/A[facility]11-21-2023Functional StatusN/A [facility] Clinical Notes 04-12-2021 to 01-12-2025 Note Date & TrwlKzgfJtnsykiq04-62-8237 History of Present illness Narrative* Tulio Ruggiero MD - 01/12/2025 9:44 AM EDTAssociated Problem(s): Type 2 diabetes mellitus with hyperglycemia, without long-term current use of insulin ([facility]) Reports BS controlled and due for [...] (BMI) of 37.0 to 37.9 in adult ([facility]) Weight loss indicated. * Tulio Ruggiero MD [...] index (BMI) of37.0 to 37.9 in adult ([facility]) Weight loss indicated. Type 2 diabetes mellitus with hyperglycemia, without long-term current use of insulin ([facility]) - Primary Reports BS controlled and due for A1C. Stick to ADA diet and limit carbs. Relevant Orders Microalbumin / creatinine, urine ratio Hemoglobin A1c Seasonal allergic rhinitis due to pollen Symptoms controlled with medication and continue. Primary insomnia Sleeping well with medication and continue. documented in this encounterMosaic [facility] Care at St. JosephXadoxkiimu62-93-8120 History of Present illness Narrative* Tulio Ruggiero MD - 10/13/2024 1:51 PM EDTAssociated Problem(s): Abscess of abdominal wall Recent abscess but improved after drainage. Use heat PRN. Treat with bactrim. Cover with neosporin. * Tulio Ruggiero MD - 10/13/2024 1:15 PM EDT Images from the original note were not included. Subjective Patient ID: Carlso Caraballo is a 69 y.o. male who [...] 800-160 MG per tablet documented in this encounterMosaic Life Care at St. JosephLufipnjrns99-80-9493 NoteProcedure: AP view of the orbits. Clinical [...] Is Signed, Electronically Signed in Other Vendor System)[facility]01-02-2025 History of Present illness Narrative* Tulio Ruggiero MD - 07/15/2024 9:51 AM ESTAssociated Problem(s): Dyslipidemia (CMS/HCC) Due for labs. * Tulio Ruggiero MD - 07/15/2024 9:50 AM ESTAssociated Problem(s): Class 2 severe obesity due to excess calories with serious comorbidity and body mass index (BMI) of 37.0 to 37.9 in adult ([facility]) Weight down 9 pounds in past year. Continue exercise and diet changes. * Tulio Ruggiero MD - 07/15/2024 9:49 AM ESTAssociated Problem(s): Polyneuropathy due to type 2 diabetes mellitus ([facility]) Neuropathy stable and continue neurontin. * Tulio Ruggiero MD - 07/15/2024 9:48 AM ESTAssociated Problem(s): Type 2 diabetes mellitus with hyperglycemia, without long-term current use of insulin ([facility]) Reports BS controlled and due for [...] index (BMI) of37.0 to 37.9 in adult ([facility]) Weight down 9 pounds in past year. Continue exercise and diet changes. Type 2 diabetes mellitus with hyperglycemia, without long-term current use of insulin ([facility]) Reports BS controlled and due for A1C. Stick to ADA diet and limit carbs. Polyneuropathy due to type 2 diabetes mellitus ([facility]) Neuropathy stable and continue neurontin. Annual [...] palpitations. Recommend routine PAT. documented in this encounterMosaic Life Care at St. JosephZdilddweqm87-36-5056 Hospital Discharge instructions Patient Education 05/27/2024 09:56:36 Kidney Stones, Pqye-tf-Inlz Kidney Stones Kidney stones are rock-like masses [...] Follow these instructions at home: Medicines Take yvfj-max-mihvtyy and prescription medicines only as told by [...] provider. Document Revised: 02/21/2023 Document Reviewed: 02/21/2023 [employer] Patient Education 2023 [employer]. Follow Up Care 11/04/2023 09:32:44 With:LIZ ABREU PA-C, URL Address: When:1 year [facility] 11-14-2024 NotePatient Education Urology Kidney Stones [...] these instructions at home: Medicines ??? Take vzpx-mqm-zoehjpq and prescription medicines only as told by [...] provider. Document Revised: 02/21/2023 Document Reviewed: 02/21/2023 [employer] Patient Education ? 2023 [employer].[facility] 11-04-2023 Hospital Discharge instructions [...] Follow these instructions at home: Medicines Take axha-yru-hvmqubf and prescription medicines only as told by [...] provider. Document Revised: 09/26/2021 Document Reviewed: 09/26/2021 [employer] Patient Education 2022 [employer]. Follow Up Care 06/03/2023 10:28:55 With:LIZ ABREU PA-C, URL Address: [address] [facility] [place] [address] [phone] When: Unknown [facility] 11-21-2023 Hospital Discharge instructions Patient Education [...] treatment? Where to find more information [employer] [place] [employer] Society: www.cancer.org [place] [employer] Association: www.auanet.org Contact a health care [...] provider. Document Revised: 12/24/2021 Document Reviewed: 12/24/2021 [employer] Patient Education 2022 [employer]. Follow Up Care 05/29/2022 11:47:27 With:DAVID IVAN, LIZ Juarez, URL Address[address] [place] [address] [phone] When: Unknown Comments:6 mos w/ PSA [facility] 05-23-2023 NotePROCEDURE: XR FOOT LT MIN [...] Electronically authenticated by: ELIN MCCARTNEY Date: 2022-12-03 09:57[facility] HospitalCibmxkjm58-65-1377 NotePROCEDURE: XR FOOT LT MIN 3 VIEWS [...] Electronically authenticated by: ZAFAR FERRER Date: 2022-11-12 13:59[facility]04-11-2023 NotePROCEDURE: XR FOOT LT MIN 3 VIEWS [...] Electronically authenticated by: ELIN MCCARTNEY Date: 2022-10-22 07:48[facility]04-11-2023 NotePROCEDURE: XR FOOT LT 2V HISTORY: Pain COMPARISON: XR foot left 10/21/2022 FINDINGS: BONES:Multiple intraoperative spot fluoroscopic images demonstrate mechanical fusion of the first metatarsophalangeal joint and resection of head of first proximal phalanx. IMPRESSION: 1. Surgical changes of left first toe as detailed above. Electronically authenticated by: ELIN MCCARTNEY Date: 2022-10-22 07:46[facility]01-18-2023 NoteCurrently stableUnPremier Health Atrium Medical Center01-18-2023 NoteHypertension is well controlled 114/64 Continue lisinopril 5 mg Recent CR elevated 1.59- his cr typically has been 1.2-1.4 - He has been on antibiotics for Lt foot infection- DFU with wound care. [facility]01-18-2023 NoteLipid abnormalities are currently well controlled with lipitor 20 mg- LDL currently 58.6 on labs 07/26/2022 Liver function 04/2022 were normalUnPremier Health Atrium Medical Center01-18-2023 NoteUTP CARDIOLOGY PROGRESS NOTE HPI: [...] stable RTC 1 year or earlier if neededUnPremier Health Atrium Medical Center01-18-2023 NotePatient here for 6 mo follow up history of PE and hyperlipidemia. Had labs in Apr and echo in Jun 2022. Patient denies chest pain, SOB, and increase in LE edema. Doing very well from cardiac standpoint. Was seeing Dr. Steele for his varicose veins. Review of Systems Cardiovascular: Positive for leg swelling. All other systems reviewed and are negative.[facility] 07-31-2022 NoteCONSULTATION PROCEDURE DATE: 07/31/2022 INDICATIONS: This [...] in the clinic in three months' time.[facility] HospitalEjjwvwgl36-14-4274 Note CONSULTATION CONSULTATION DATE: 07/25/2022 HISTORY OF [...] a [place] vacation, where he visited multiple [employer] may[place] and had a lot of increased [...] plan and will be contacted upon approval.[facility] HospitalMhlnzyzi62-11-6639 NotePROCEDURE: XR FOOT LT MIN 3 VIEWS [...] authenticated by: ELIN MCCARTNEY Date: 2022-07-24 10:21[facility] HospitalVglmfzcd32-22-4318 NotePROCEDURE: XR KNEE LT 4V or > HISTORY: Pain in left knee ; chronic left knee pain COMPARISON: XR knee bilateral 05/31/2021 FINDINGS: BONES:Marked narrowing of the medial joint space with suspected dsmf-nj-svcx articulation. Moderate-marked narrowing of the lateral compartment. Mild narrowing of anterior compartment. Small periarticular osteophytes involving the margins of all 3 compartments. No fracture or dislocation. SOFT TISSUES:No visible soft tissue swelling. EFFUSION:Small joint effusion. OTHER: Negative. IMPRESSION: 1. Marked degenerative joint disease. Stable to minimally progressed. Electronically authenticated by: ELIN MCCARTNEY Date: 2022-06-10 19:35[facility] HospitalAqymjwnn94-99-6000 Evaluation note* Encounter Date Diagnosis Assessment Notes [...] May,ain in left knee (ICD-10 - M25.562) [employer] Other 10-11-2022 NoteCONSULTATION CONSULTATION DATE: 04/23/2022 CHIEF [...] the time being. CC: Felisa Berrios M.D.[facility] HospitalRntppmhm60-25-0191 NoteCONSULTATION CONSULTATION DATE: 04/04/2022 HISTORY OF PRESENT [...] indicated. Patient agreed with plan of care.[facility] HospitalDajpstfv42-98-9316 Note CONSULTATION CONSULTATION DATE: 02/14/2022 HISTORY OF [...] time unless otherwise indicated. Patient acknowledges understanding.[facility] HospitalWdfdiztg05-06-1883 NoteCONSULTATION PROCEDURE DATE: 02/14/2022 PREOPERATIVE DIAGNOSIS: Bilateral [...] will be followed up in the office.[facility] HospitalFwmbitly30-79-7945 Evaluation note* Encounter Date Diagnosis Assessment Notes [...] Jul,ain in left knee (ICD-10 - M25.562) [employer] Other 09-30-2021 Evaluation note* Encounter Date Diagnosis Assessment Notes Treatment Notes Treatment Clinical Notes Mar, Liver hemangioma (ICD-10 - D18.0 3) Mar,NASH (nonalcoholic steatohepatitis) (ICD-10 - K75.81) [employer] Other Evaluation + Plan note Future Appointments Appointment Date:11/04/2023 08:30:00 AM Scheduled Provider:LIZ ABREU PA-C Location:[facility] Appointment Type:URO Office Visit Diagnostic Tests Pending * PSA Total 06/03/23 [facility] evaluation + Plan note Future Appointments Appointment Date:05/25/2024 08:40:00 AM Scheduled Provider:LIZ ABREU PA-C Location:[facility] Appointment Type:URO Office Visit [facility] evaluation note* Diagnosis Polyneuropathy due to type 2 diabetes mellitus ([facility]) documented in this encounter [facility] HealthcareEvaluation note* Diagnosis Male hypogonadism Other testicular hypofunction documented in this encounter [facility] HealthcareEvaluation note* Diagnosis Annual physical exam- Primary Routine general medical examination at [facility] facility Type 2 diabetes mellitus with hyperglycemia, without long-term current use of insulin ([facility]) Type 2 diabetes mellitus with hyperglycemia, without long-term current use of insulin ([facility])- Primary Arthritis, gouty Gouty arthropathy, unspecified [...] hyperglycemia, without long-term current use of insulin ([facility]) Arthritis, gouty Gouty arthropathy, unspecified 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) Class 2 severe obesity due to excess calories with serious comorbidity and body mass index (BMI) of37.0 to 37.9 in adult ([facility]) Dyslipidemia ([facility]) Other and unspecified hyperlipidemia documented in this encounter [facility] HealthcareEvaluation note* Diagnosis Annual physical exam- Primary Routine general medical examination at a health care facility Type 2 diabetes mellitus with hyperglycemia, without long-term current use of insulin ([facility]) Type 2 diabetes mellitus with hyperglycemia, without long-term current use of insulin ([facility])- Primary Arthritis, gouty Gouty arthropathy, unspecified Seasonal allergic rhinitis due to pollen DDD (degenerative disc disease), lumbar Degeneration of lumbar or lumbosacral intervertebral disc Polyneuropathy due to type 2 diabetes mellitus ([facility]) Primary insomnia Persistent disorder of initiating or maintaining sleep Annual physical exam- Primary Routine general medical examination at a health care facility Encounter for preoperative assessment Type 2 diabetes mellitus with hyperglycemia, without long-term current use of insulin ([facility]) Arthritis, gouty Gouty arthropathy, unspecified Polyneuropathy due to type 2 diabetes mellitus ([facility]) Class 2 severe obesity due to excess calories with serious comorbidity and body mass index (BMI) of37.0 to 37.9 in adult ([facility]) Dyslipidemia ([facility]) Other and unspecified hyperlipidemia Type 2 diabetes mellitus with hyperglycemia, without long-term current use of insulin ([facility])- Primary Dyslipidemia ([facility]) Other and unspecified hyperlipidemia Class 2 severe obesity due to excess calories with serious comorbidity and body mass index (BMI) of37.0 to 37.9 in adult ([facility]) Encounter for long-term current use of medication Screening PSA (prostate specific antigen) Special screening for malignant neoplasm of prostate documented in this encounter [facility] HealthcareEvaluation note* Diagnosis Annual physical exam- Primary Routine general medical examination at [facility] care [facility] Type 2 diabetes mellitus with hyperglycemia, without long-term current use of insulin ([facility]) Type 2 diabetes mellitus with hyperglycemia, without long-term current use of insulin ([facility])- Primary Arthritis, gouty Gouty arthropathy, unspecified Seasonal allergic rhinitis due to pollen DDD (degenerative disc disease), lumbar Degeneration of lumbar or lumbosacral intervertebral disc Polyneuropathy due to type 2 diabetes mellitus ([facility]) Primary insomnia Persistent disorder of initiating or maintaining sleep Annual physical exam- Primary Routine general medical examination at a health care facility Encounter for preoperative assessment Type 2 diabetes mellitus with hyperglycemia, without long-term current use of insulin ([facility]) Arthritis, gouty Gouty arthropathy, unspecified Polyneuropathy due to type 2 diabetes mellitus ([facility]) Class 2 severe obesity due to excess calories with serious comorbidity and body mass index (BMI) of37.0 to 37.9 in adult ([facility]) Dyslipidemia ([facility]) Other and unspecified hyperlipidemia Morbid obesity ([facility]) Morbid obesity Polyneuropathy due to type 2 diabetes mellitus ([facility]) Type 2 diabetes mellitus with hyperglycemia, without long-term current use of insulin ([facility]) documented in this encounter [facility] note* Diagnosis Annual physical exam- Primary Routine general medical examination at a health care facility Type 2 diabetes mellitus with hyperglycemia, without long-term current use of insulin ([facility]) Type 2 diabetes mellitus with hyperglycemia, without long-term current use of insulin ([facility])- Primary Arthritis, gouty Gouty arthropathy, unspecified Seasonal allergic rhinitis due to pollen DDD (degenerative disc disease), lumbar Degeneration of lumbar or lumbosacral intervertebral disc Polyneuropathy due to type 2 diabetes mellitus ([facility]) Primary insomnia Persistent disorder of initiating or maintaining sleep Annual physical exam- Primary Routine general medical examination at a health care facility Encounter for preoperative assessment Type 2 diabetes mellitus with hyperglycemia, without long-term current use of insulin ([facility]) Arthritis, gouty Gouty arthropathy, unspecified Polyneuropathy due to type 2 diabetes mellitus ([facility]) Class 2 severe obesity due to excess calories with serious comorbidity and body mass index (BMI) of37.0 to 37.9 in adult ([facility]) Dyslipidemia ([facility]) Other and unspecified hyperlipidemia Abscess of abdominal wall- Primary Cellulitis and abscess of trunk documented in this encounter [facility] note* Diagnosis Annual physical exam- Primary Routine general medical examination at a health care facility Type 2 diabetes mellitus with hyperglycemia, without long-term current use of insulin ([facility]) Type 2 diabetes mellitus with hyperglycemia, without long-term current use of insulin ([facility])- Primary Arthritis, gouty Gouty arthropathy, unspecified Seasonal allergic rhinitis due to pollen DDD (degenerative disc disease), lumbar Degeneration of lumbar or lumbosacral intervertebral disc Polyneuropathy due to type 2 diabetes mellitus ([facility]) Primary insomnia Persistent disorder of initiating or maintaining sleep Annual physical exam- Primary Routine general medical examination at a health care facility Encounter for preoperative assessment Type 2 diabetes mellitus with hyperglycemia, without long-term current use of insulin ([facility]) Arthritis, gouty Gouty arthropathy, unspecified Polyneuropathy due to type 2 diabetes mellitus ([facility]) Class 2 severe obesity due to excess calories with serious comorbidity and body mass index (BMI) of37.0 to 37.9 in adult ([facility]) Dyslipidemia ([facility]) Other and unspecified hyperlipidemia Abscess of abdominal wall- Primary Cellulitis and abscess of trunk Annual physical exam- Primary Routine general medical examination at a health care facility Morbid obesity ([facility]) Morbid obesity Polyneuropathy due to type 2 diabetes mellitus ([facility]) Type 2 diabetes mellitus with hyperglycemia, without long-term current use of insulin ([facility]) Arthritis, gouty Gouty arthropathy, unspecified documented in this encounter [facility] HealthcareEvaluation note* Diagnosis Annual physical exam- Primary Routine general medical examination at a health care facility Type 2 diabetes mellitus with hyperglycemia, without long-term current use of insulin ([facility]) Type 2 diabetes mellitus with hyperglycemia, without long-term current use of insulin ([facility])- Primary Arthritis, gouty Gouty arthropathy, unspecified Seasonal allergic rhinitis due to pollen DDD (degenerative disc disease), lumbar Degeneration of lumbar or lumbosacral intervertebral disc Polyneuropathy due to type 2 diabetes mellitus ([facility]) Primary insomnia Persistent disorder of initiating or maintaining sleep Annual physical exam- Primary Routine general medical examination at a health care facility Encounter for preoperative assessment Type 2 diabetes mellitus with hyperglycemia, without long-term current use of insulin ([facility]) Arthritis, gouty Gouty arthropathy, unspecified Polyneuropathy due to type 2 diabetes mellitus ([facility]) Class 2 severe obesity due to excess calories with serious comorbidity and body mass index (BMI) of37.0 to 37.9 in adult ([facility]) Dyslipidemia ([facility]) Other and unspecified hyperlipidemia Abscess of abdominal wall- Primary Cellulitis and abscess of trunk Male hypogonadism Other testicular hypofunction documented in this encounter [facility]Evaluation note* Diagnosis Annual physical exam- Primary Routine general medical examination at a health care facility Type 2 diabetes mellitus with hyperglycemia, without long-term current use of insulin ([facility]) Type 2 diabetes mellitus with hyperglycemia, without long-term current use of insulin ([facility])- Primary Arthritis, gouty Gouty arthropathy, unspecified Seasonal allergic rhinitis due to pollen DDD (degenerative disc disease), lumbar Degeneration of lumbar or lumbosacral intervertebral disc Polyneuropathy due to type 2 diabetes mellitus ([facility]) Primary insomnia Persistent disorder of initiating [...] index (BMI) of37.0 to 37.9 in adult ([facility]) Dyslipidemia ([facility]) Other and unspecified hyperlipidemia Abscess of abdominal wall- Primary Cellulitis and abscess of trunk Polyneuropathy due to type 2 diabetes mellitus ([facility]) documented in this encounter [facility] HealthcareEvaluation [...] index (BMI) of37.0 to 37.9 in adult ([facility]) Dyslipidemia Other and unspecified hyperlipidemia Type [...] index (BMI) of37.0 to 37.9 in adult ([facility]) Type 2 diabetes mellitus with diabetic chronic kidney disease (HCC) Chronic kidney disease, stage 3a ([facility]) documented in this encounter [facility] note* Diagnosis Aftercare following left knee joint replacement surgery documented in this encounter [facility] note* Diagnosis Annual physical exam- Primary Routine [...] hyperglycemia, without long-term current use of insulin ([facility]) Arthritis, gouty Gouty arthropathy, unspecified 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) Class 2 severe obesity due to excess calories with serious comorbidity and body mass index (BMI) of37.0 to 37.9 in adult ([facility]) Dyslipidemia Other and unspecified hyperlipidemia Type 2 diabetes mellitus with hyperglycemia, without long-term current use of insulin ([facility])- Primary Arthritis, gouty Gouty arthropathy, unspecified Seasonal allergic rhinitis due to pollen Primary insomnia Persistent disorder of initiating or maintaining sleep Degeneration of intervertebral disc of lumbar region with discogenic back pain Class 2 severe obesity due to excess calories with serious comorbidity and body mass index (BMI) of37.0 to 37.9 in adult ([facility]) Type 2 diabetes mellitus with diabetic chronic kidney disease (HCC) Chronic kidney disease, stage 3a ([facility]) 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) documented in this encounter [facility] Narrative - Reported* Type Description Date Medical History DM II Medical HistoryHTNMedical HistoryhyperlipidemiaMedical HistorygoutSurgical Historyknee surgerySurgical HistorytonsillectomySurgical Historyvasectomy Surgical Historysinus surgerySurgical Historyback injectionsHospitalization HistorySEE ABOVE SURGICAL HX [employer] Other Hospital course Narrative No data available for this section [facility] progress note No data available for this section [facility] Summary Purpose Family History No Family [...] content) DATE CREATED AUTHOR 03/29/2021 [facility] DATE CREATED AUTHOR AUTHOR'S ORGANIZ ATION 08/06/2022 [facility] DATE CREATED AUTHOR AUTHOR'S ORGANIZ ATION 12/20/2022 [facility] DATE CREATED AUTHOR AUTHOR'S ORGANIZ ATION 07/28/2024 [facility] DATE CREATED AUTHOR AUTHOR'S ORGANIZ ATION 01/14/2025 [facility] DATE CREATED AUTHOR AUTHOR'S ORGANIZ ATION 02/04/2025 [facility] DATE CREATED AUTHOR AUTHOR'S ORGANIZ ATION 03/31/2025 [facility] REASON FOR VISIT (unrecogniz ed section and content) ReasonCommentsMed RefillReasonOnset DateCommentsMed Olayen2504/06/2024eason MebkyukkGcwblr-dy5fIrpvfaPnsrfpolMhedwo-oeCcmm on stomach/ poppedReasonOnset DateCommentsMed Bqfbeh5311/08/2024ReasonOnset DateCommentsMed Geguhk2812/06/2024 Patient Care team informatio n (unrecognized section and content) Team MemberRelationshipSpecialtyStart DateEnd Date Tulio Ruggiero MD [address] [place] [address] PCP - [place] Tmouzuhsie79/1/23 Tulio Ruggiero MD [address] [place] [address] PCP - GeneralFamily Medicine01/12/24Team MemberRelationshipSpecialtyStart DateEnd Date Tulio Ruggiero MD [address] [place] [address] PCP - [place] Wdgqiuhlav43/1/23 Tulio Ruggiero MD [address] [place] [address] PCP - [facility] Medicine01/12/24Team MemberRelationshipSpecialtyStart DateEnd Date Tulio Ruggiero MD [address] [place] [address] PCP - [place] Nlrfzlhyio92/1/23 Tulio Ruggiero MD [address] [place] [address] PCP - [facility]01/12/24Team MemberRelationshipSpecialtyStart DateEnd Date Tulio Ruggiero MD [address] [place] [address] PCP - [place] Srrtjfybko31/1/23 Tulio Ruggiero MD [address] [place] [phone] PCP - [facility]01/12/24Team MemberRelationshipSpecialtyStart DateEnd Date Tulio Ruggiero MD [address] [place] [address] PCP - [place] Lyqyavoqem12/1/23 Tulio Ruggiero MD [address] [place] [address] PCP - GeneralFamily Medicine01/12/24Team MemberRelationshipSpecialtyStart DateEnd Date Tulio Ruggiero MD [address] [place] [address] PCP - [place] Tljklfsbkb30/1/23 Tulio Ruggiero MD [address] [place] [address] PCP - [facility]mi Medicine01/12/24Team MemberRelationshipSpecialtyStart DateEnd Date Tulio Ruggiero MD [address] [place] [address] PCP - [place] Xhrdmboikr02/1/23 Tulio Ruggiero MD [address] [place] [address] PCP - Generalmily Medicine01/12/24Team MemberRelationshipSpecialtyStart DateEnd Date Tulio Ruggiero MD [address] [place] [address] PCP - GeneralFamily Medicine01/12/24Team MemberRelationshipSpecialtyStart DateEnd Date Tulio Ruggiero MD [address] [place] [address] PCP - GeneralFamily Medicine01/12/24Team MemberRelationshipSpecialtyStart DateEnd Date Tulio Ruggiero MD [address] [place] [address] PCP - GeneralFamily Medicine01/12/24Team MemberRelationshipSpecialtyStart DateEnd Date Tulio Ruggiero MD [address] [place] [address] PCP - GeneralFamily Medicine01/12/24Team MemberRelationshipSpecialtyStart DateEnd Date Tulio Ruggiero MD [address] [place] [address] PCP - GeneralFamily Medicine01/12/24Team MemberRelationshipSpecialtyStart DateEnd Date Tulio Ruggiero MD [address] [place] [address] PCP - GeneralFamily Medicine01/12/24Team MemberRelationshipSpecialtyStart DateEnd Date Tulio Ruggiero MD [address] [place] [address] PCP - GeneralFamily Medicine01/12/24Team MemberRelationshipSpecialtyStart DateEnd Date Tulio Ruggiero MD [address] [place] [address] PCP - GeneralFamily Medicine01/12/24Team MemberRelationshipSpecialtyStart DateEnd Date Tulio Ruggiero MD [address] [place] [address] PCP - GeneralFamily Medicine01/31/25Team MemberRelationshipSpecialtyStart DateEnd Date Tulio Ruggiero MD [address] [place] [address] PCP - [place] Yauqfjkuxd57/1/ Tulio Ruggiero MD [address] [place] [address] PCP - GeneralFamily Medicine01/12/24Team MemberRelationshipSpecialtyStart DateEnd Date Tulio Ruggiero MD PCP - GeneralFamily Medicine Tulio Ruggiero MD [address] [place] [address] PCP - [place] Jaedpnlueo60/1/ Tulio Ruggiero MD [address] [place] [address] PCP - GeneralFamily Medicine01/12/24Team MemberRelationshipSpecialtyStart DateEnd Date Tulio Ruggiero MD PCP - GeneralFamily Medicine01/12/24Team MemberRelationshipSpecialtyStart DateEnd Date Tulio Ruggiero MD PCP - [facility]01/12/24Team MemberRelationshipSpecialtyStart DateEnd Date Tulio Ruggiero MD PCP - [facility] Medicine Tulio Ruggiero MD [address] [place] [address] [facility] Tulio Ruggiero MD [address] [place] [address] [facility]01/12/24Team MemberRelationshipSpecialtyStart DateEnd Date Tulio Ruggiero MD [facility] - [facility]01/12/24 FOR RECORDS PERTAINING TO PATIENTS WHO ARE [...] BE BASED ON THE PRIMARY CLINICAL RECORDS. [facility] [employer] [facility]. provides no warranty or guarantee of the accuracy or completeness of information in this document.
[2025-05-16 08:49] VITALS: BP 116/69; PULSE 73; TEMP 36.9; O2SAT 99
[2025-05-16 09:13] VITALS: BP 114/69; PULSE 78; O2SAT 91
[2025-05-16 09:14] VITALS: BP 119/73; PULSE 79; O2SAT 94
[2025-05-16] MEDS: BUPIVACAINE HCL 0.25% PF 25 MG/10 ML VIAL 8 ML INJ (09:15)
[2025-05-16] MEDS: LIDOCAINE HCL 2% 400 MG/20 ML MDV INJ (09:16)
--- NOTE | 2025-05-16 09:19 | W.PM.PROCNOT ---
Date of procedure: 05/16/25 Pre-op diagnosis: Pain due to lumbar spondylosis without myelopathy Post-op diagnosis: same as pre-op Procedure: Procedure: Bilateral L4-5, L5-S1 medial branch block Medications: Bupivacaine 0.25% 6cc The patient was seen and examined in the preoperative holding area.? An informed consent was obtained and placed on the chart.? The patient was brought to the medical procedure unit and placed in the prone position.? A timeout was completed verifying correct patient, procedure site, positioning, plan, and special equipment.? Using aseptic technique, the needle was placed at left L4. Under direct fluoroscopic visualization a Quincke-tipped spinal needle was advanced to the junction of the superior articulating process with the transverse process at the designated medial branch segment.? Preceded by negative aspiration, the above-mentioned injectate was placed in 1 mL aliquots.? The procedure was repeated at left L5, S1.? The needle was removed and insertion site was covered. The same procedure, at the same levels, was completed on the right side. The patient was taken to the postprocedural recovery area and monitored for an appropriate length of time before found suitable for discharge in the company of a responsible adult. Anesthesia: Local Surgeon: Donaldo Sparrow Pathology: none sent Condition: stable Disposition: no change
== END 2025-05-16 09:22 | disposition home or self-care (01) ==
PROVIDERS: PCP Family Medicine; Visit Provider Anesthesiology
DX: M47.816 Spondylosis without myelopathy or radiculopathy, lumbar region (principal); M54.50 Low back pain, unspecified; E11.8 Type 2 diabetes mellitus with unspecified complications; Z79.85 Long-term (current) use of injectable non-insulin antidiabetic drugs; Z79.84 Long term (current) use of oral hypoglycemic drugs
CPT/HCPCS: 36415; 64493; 64494; 82948; J0665

== ENCOUNTER 2025-05-18 08:12 | Outpatient (OUT) | payer MEDICARE, OTHER, SELFPAY ==
--- OUTSIDE RECORDS SUMMARY | 2024-07-27 04:00 | XMS_ITS ---
Author Organization The [facility] in [place] Address [address] [place] [address] Care Team Providers Care Activities Manager Name Role Phone None, Unknown or Primary Care Provider Unavailab marylou NealevanJames [phone] REASON FOR VISIT -6 Month Follow Up- Encounters Encounter Location Date Provider Diagnosis The [facility] (PODIATRY) [address] [place] [address] [place] [address] 07/27/2024 James Raya Left foot pain M79.672 Assessments Encounter Date Diagnosis (ICD Code) Assessment Notes Treatment Notes Treatment Clinical Notes Section Notes 07/27/2024 Left foot pain (ICD-10 - M79.672 ) Plan Of Treatment Pending Test Test Name Order Date XR Foot LT (3 views) * 07/27/2024 Progress Notes * Warner LOCKE CDOB: [birth year] (69 yo M)Acc No.[id number]:07/27/2024 UNLOCKED PROGRESS NOTE Follow Up Patient: Etelvina BOND Warner Farrar :?James Raya DPVirgilio, MSDOB:1955???Age: 68 Y???Sex:MaleDate:07/27/2024Phone:[phone]:JARETH DUNCAN [id number]:Unknown or None Subjective: * Chief Complaints: * 1 . -6 Month Follow Up-. * Medical History: Objective: * Vitals: Assessment: * Assessment: 1.?Left foot pain - M79.672??? Plan: * Treatment: ?Imaging: XR Foot LT (3 views) * * * Electronic signature of James Raya DPM on 05/18/2025 at 08:19 AM ESTSign off status: PendingVisit Status:?CANC (Cancelled) * Provider: Supriya Raya DPM, MS Date: 0 07/27/2024 Generated for Printing/Faxing/eTransmitting on:?05/18/2025 08:19 AM EST
--- OUTSIDE RECORDS SUMMARY | 2024-08-23 09:00 | XMS_ITS ---
Author Organization [facility] Address [address] [place] [address] Care Team Providers Care Hand Coremaker Name Role Phone Tulio Madrid Primary Care Provider Daniele Ruffin Unavailable [phone] REASON FOR VISIT 1ST POST OP LEFT TKA 08/09 Problems Problem Type SNOMED Code ICD Code Onset Dates Problem Status W/U Status Risk Notes Problem [id number] Aftercare following joint re placement surgery (Z47.1) [id number] of left artificial knee joint (Z96.652)Activeconfirmed Encounters Encounter Location Date Provider Diagnosis [facility] Office [address] [place] [address] [place] [address] 08/23/2024 Daniele Valencia Aftercare following joint replacement surgery Z47.1 and Presence of left artificial knee joint Z96.652 Assessments Encounter Date Diagnosis (ICD Code) Assessment Notes Treatment Notes Treatment Clinical Notes Section Notes 08/23/2024 Aftercare following joint replac ement surgery (ICD-10 - Z47.1) 08/23/2024Presence of left artificial knee joint (ICD-10 - Z96.652) Plan Of Treatment Pending Test Test Name Order Date SCC- KNEE 2 VIEW LEFT - 77503 08/23/2024 Progress Notes * CARLOS LOCKE CDOB: [birth year] (69 yo M)Acc No.[id number]:08/23/2024 Progress Notes Patient: Etelvina CARLOS BOND :?NATHALY Tena:1955???Age:69 Y ???Sex:MaleDate:08/23/2024Phone:[phone]:[place], [id number]:Tulio Madrid Subjective: * Chief Complaints: * 1 . 1ST POST OP LEFT TKA 08/09. * Medical History: Objective: * Vitals: Assessment: * Assessment: 1.?Aftercare following joint replacement surgery - Z47.1 (Primary)???2.?Presence of left artificial knee joint - Z96.652??? Plan: * Treatment: ?Imaging: SCC- KNEE 2 VIEW LEFT - [id number].?Presence of left artificial knee joint?Imaging: SCC- KNEE 2 VIEW LEFT - 67359 Forms: * Images: * Electronic signature of Daniele Valencia DO on 05/18/2025 at 08:20 AM ESTSign off status: Pending * Provider: Noa Valencia DO Date: 0 08/23/2024 Generated for Printing/Faxing/eTransmitting on:?05/18/2025 08:20 AM EST
--- OUTSIDE RECORDS SUMMARY | 2024-11-22 08:10 | XMS_ITS ---
Author Organization [facility] Address [address] [place] [address] Care Team Providers Care Laboratory Technician Name Role Phone Tulio Madrid Primary Care Provider Daniele Ruffin Unavailable [phone] REASON FOR VISIT LEFT KNEE RECHECK DOS 02.10 Encounters Encounter Location Date Provider Diagnosis [facility] Office [address] [place] [address] [place] [address] 11/22/2024 Daniele Valencia Aftercare following joint replacement surgery Z47.1 Assessments Encounter Date Diagnosis (ICD Code) Assessment Notes Treatment Notes Treatment Clinical Notes Section Notes 11/22/2024 Aftercare following joint replac ement surgery (ICD-10 - Z47.1) Plan Of Treatment Pending Test Test Name Order Date SCC- KNEE 2 VIEW LEFT - 79588 11/22/2024 Progress Notes * CARLOS LOCKE CDOB: [birth year] (69 yo M)Acc No.[id number]:11/22/2024 Patient:?CARLOS LOCKE :?Daniele Valencia, DODOB:1955???Age:69 Y ???Sex:MaleDate:11/22/2024Phone:[phone]:JARETH DUNCAN [id number]:Tulio Madrid Subjective: * Chief Complaints: * 1 . LEFT KNEE RECHECK DOS 02.10. * Medical History: Objective: * Vitals: Assessment: * Assessment: 1.?Aftercare following joint replacement surgery - Z47.1 (Primary)??? Plan: * Treatment: ?Imaging: SCC- KNEE 2 VIEW LEFT - 23668 * Procedure Codes: 7 3560 X-ray Knee, 2 view Forms: * Images: * Electronic signature of Daniele Valencia DO on 05/18/2025 at 08:19 AM ESTSign off status: Pending * Provider: Noa Valencia DO Date: 0 11/22/2024 Generated for Printing/Faxing/eTransmitting on:?05/18/2025 08:19 AM EST
--- OUTSIDE RECORDS SUMMARY | 2025-05-18 08:17 | XMS_ITS | CCD ---
Author Organization [facility] Care Team Providers Care Alto Singer Name Role Phone Dominikjamaal Racheal Unavailable Ant [...] ., DR FELISA Juarez Primary Care Unavailable ELTAHAWAntonio, DR SALCIDO Attending Unavailable ELTAJASMYNE, DR SALCIDO [...] ., DR FELISA Juarez Primary Care Unavailable BRERIOS ., DR FELISA Juarez Attending Unavailable BERRIOS ., DR FELISA Juarez Consulting Unavailable BERRIOS ., DR FELISA Juarez Primary Care Unavailable BERRIOS ., DR FELISA Juarez Admjulio césar Unavailable BERRIOS ., DR FELISA Juarez Primary Care Unavailable WEST, DR RACHEAL yAala Consulting Unavailable GIEDRAITIS, ANDRIUS Attending Unavailable GIEDRAITIS, [...] ., DR FELISA Juarez Primary Care Unavailable [facility], DR ELIN Oliva Consulting Unavailable BERRIOS ., DR FELISA Juarez Primary Care Unavailable WEST, DR RACHEAL Ayala Admitting Unavailable WEST, DR RACHEAL Ayala Consulting Unavailable WEST, DR RACHEAL Ayala Attending Unavailable ZIEBER, DR ELIN Oliva Consulting Unavailable WEST, DR RACHEAL Aylaa Admitting Unavailable WEST, DR RACHEAL Ayala Consulting Unavailable BERRIOS ., DR FELISA Juarez Primary Care Unavailable WEST, DR RACHEAL Ayala Attending Unavailable BERRIOS, FELISA Juarez Primary Care Physician TULOI RUGGIERO Primary Care Physician Tulio Ruggiero MD [...] Unavailable Tulio Ruggiero MD Primary Care Provider Tulio Ruggiero MD Primary Care Provider Tulio Ruggiero MD Primary Care Provider [phone] Allergies Allergy ClassificationReported Allergen(s)Allergy TypeDate of OnsetReaction(s) Facility (3 sources)Acetaminophen / oxyCODONEDrug AllergyUnknowParkland Health Center [facility] Other (20 sources)Acetaminophen / oxyCODONE; Translations: [OXYCODONE-ACETAMINOPHEN] Drug Qoxfykb40-29-6559Tyjrflp, [facility]UnCh[facility] (20 sources)oxyCODONE; Translations: [OXYCODONE]Drug Cpfsgec19-93-2111 Hyperactive behavior (finding)[facility] Repository (1 source)Acetaminophen / oxyCODONEDrug AllergyThe [facility] Repository (1 source)oxyCODONE; Translations: [OxyCODONE Hydrochloride][facility] Medications Current Medications MedicationDrug Class(es)DatesSig (Normalized)Sig (Original)allopurinol 300 mg oral tablet (20 sources)Xanthine Oxidase Inhibitorallopurinol (Zyloprim) 300 MG tablet 1 (one) time each day at the same time. Activeatorvastatin 20 mg oral tablet (20 sources)HMG-CoA Reductase InhibitorStart: 01-00-6085ycpn 1 tablet by mouth at bedtimeatorvastatin (Lipitor) 20 MG tablet Indications: Dyslipidemia Take 1 tablet (20 mg) by mouth at bedtime 90 tablet 3 09/30/2023 ActiveAtorvastatin Calcium Activebaclofen 10 mg oral tablet (20 sources)gamma-Aminobutyric Acid-ergic AgonistStart: 49-63-5301kbul 1 tablet by mouth at bedtimebaclofen 10 mg Tab 10 mg = 1 tab(s), Oral, Bedtime, Refills(s) 0, Muscle pain Start Date: 11/17/20 Status: Orderedtake 1 tablet by mouth at bedtimebaclofen (Lioresal) 20 MG tablet Take 1 tablet by mouth at bedtime. 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) , Type 2 diabetes mellitus with hyperglycemia, without long-term current use of insulin (CMS/HCC) TAKE 1 TABLET BY MOUTH THREE TIMES A DAY NEEDED FOR GOUT 60 tablet 3 08/06/2023 ActiveColchicine Activecyclobenzaprine hydrochloride 10 mg oral tablet (2 sources)Muscle RelaxantStart: 70-66-8107sscqmtnmisyhzvr 10 mg Tab Refills(s) 0 Start Date: 11/04/23 Status: OrdereddiazePAM 10 mg oral tablet (20 sources)BenzodiazepinediazePAM (Valium) 10 MG tablet Take by mouth every 8 (eight) hours if needed Activediclofenac sodium 50 mg delayed release oral tablet (20 sources)Nonsteroidal Anti-inflammatory DrugStart: 16-86-7909lmdgjaqmcz sodium 50 mg Oral EC Tab Refills(s) 0 Start Date: 11/04/23 Status: Ordered febuxostat 40 mg oral tablet (20 sources)Xanthine Oxidase InhibitorStart: 84-68-4937xatrtweqqw (Uloric) 40 MG tablet Indications: Type 2 diabetes mellitus with hyperglycemia, without long- term current use of insulin (HCC) , Morbid obesity (CMS-HCC) , 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) Take 1 tablet (40 mg) by mouth Daily 90 tablet 3 11/03/2024 ActiveStart: 04-25-2020 End: 75-19-5792wvncmkhorl (Uloric) 40 MG tablet Indications: Morbid obesity (CMS/HCC) , Polyneuropathy due to type2 diabetes mellitus (CMS/HCC) , Type 2 diabetes mellitus with hyperglycemia, without long-term current use of insulin (CMS/HCC) TAKE 1 TABLET BY MOUTH EVERY DAY 90 tablet 3 08/09/2024 Active Febuxostat Activegabapentin 300 mg oral capsule (20 sources)Anti-epileptic AgentStart: 08-93-0098pbmy 1 capsule by mouth at bedtimegabapentin (Neurontin) 300 MG capsule Indications: 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) TAKE 1 CAPSULE BY MOUTH IN THE MORNING, EVENING AND BEFORE BEDTIME 270 capsule 03/07/2025 ActiveStart: 11-15-2020 End: 04-79-2485cvpb 1 capsule by mouth in the morning, [...] oral tablet (20 sources)Angiotensin Converting Enzyme InhibitorStart: 12-09-9749ndhnaixeoc 5 MG tablet Indications: Morbid obesity (CMS-HCC) , 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) , Type 2 diabetes mellitus with hyperglycemia, without long-term current use of insulin (HCC) TAKE 1 TABLET BY MOUTH EVERY DAY 90 tablet 3 06/07/2024 ActiveStart: 47-80-1886ydbifvyraf 5 MG tablet Indications: Morbid obesity (CMS/HCC) , 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) , Type 2 diabetes mellitus with hyperglycemia, without long-term current use ofinsulin (CMS/HCC) TAKE 1 TABLET BY MOUTH EVERY DAY 90 tablet 3 08/06/2023 ActiveLisinopril Alidiy78 hr metFORMIN hydrochloride 500 mg extended release oral tablet (20 sources)BiguanideStart: 64-12-9162ffeNVDZSP XR (Glucophage-XR) 500 MG 24 hr tablet Indications: Morbid obesity (CMS-HCC) , 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) , Type 2 diabetes mellitus with hyperglycemia, without long-term current use of insulin (HCC) TAKE 1 TABLET BY MOUTH EVERY DAY IN THE MORNING 90 tablet 3 06/07/2024 ActiveStart: 71-08-1012dmsXNJLPM XR (Glucophage- XR) 500 MG 24 hr [...] mg oral tablet (1 source)Nonsteroidal Anti-inflammatory DrugStart: 69-63-0585ovnq 1 tablet by mouth twice dailynabumetone 500 mg Tab 500 mg = 1 tab(s), Oral, BID, Refills(s) 0, Arthritis Start Date: 11/17/20 Status: OrderedOzempic (3 sources)Ozempic Activeprobenecid 500 mg oral tablet (20 sources)Start: 31-33-1759ntqu 1 tablet by mouth onceprobenecid (Benemid) 500 MG tablet Indications: Arthritis, gouty Take 1 tablet (500 mg) by mouth every 12 (twelve) hours 60 tablet 3 07/15/2024 Active End: 42-08-7997igbvnxfeul (Benemid) 500 MG tablet every 12 (twelve) hours. 07/15/2024 Discontinued (Reorder)take 1 tablet by mouth every twelve hours Probenecid 500 MG 1 tablet Orally Twice a day Active0.25 mg, 0.5 mg dose 1.5 ml semaglutide 1.34 mg/ml pen injector (3 sources)Start: 58-38-0323kgnetn 0.5 mg by subcutaneous injection every week Ozempic 2 mg/1.5 mL (0.25 mg or 0.5 mg dose) subcutaneous solution 0.5 mg, SubCutaneous, qWeek, Refill(s) 0 Start Date: 04/24/21 Status: Ordered Semaglutide, 2 MG/DOSE, (Ozempic, 2 MG/DOSE,) 8 MG/3ML solution pen-injector (20 sources)Start: 88-79-1072tpkyhq 2 mg by subcutaneous injection every week Semaglutide, 2 MG/DOSE, (Ozempic, 2 MG/DOSE,) 8 MG/3ML solution pen-injector Indications: Type 2 diabetes mellitus with hyperglycemia, without long-term current use of insulin (HCC) INJECT 2 MG SUBCUTANEOUSLY WEEKLY 9 mL 3 10/20/2024 ActiveStart: 74-67-3646slewre 2 mg by subcutaneous injection every week Semaglutide, 2 MG/DOSE, (Ozempic, 2 MG/DOSE,) 8 MG/3ML solution pen-injector Indications: Type 2 diabetes mellitus with hyperglycemia, without long-term current use of insulin ([facility]/HCC) INJECT 2 MG SUBCUTANEOUSLY WEEKLY 9 mL 3 10/20/2024 ActiveStart: 54-01-0806cqadyb 2 mg by subcutaneous injection every weekSemaglutide, 2 MG/DOSE, (Ozempic, 2 MG/DOSE,) 8 MG/3ML solution pen-injector Indications: Type 2 diabetes mellitus with hyperglycemia, without long-term current use of insulin ([facility]) Inject 2 mg under the skin 1 (one) time per week 9 mL 3 08/26/2023 Activesulfamethoxazole 800 mg / trimethoprim 160 mg oral tablet (3 sources)Dihydrofolate Reductase Inhibitor Antibacterial, Sulfonamide AntimicrobialStart: 10-13-2024 End: 71-19-4064gqus 1 tablet by mouth once in the morningsulfamethoxazole- trimethoprim (Bactrim DS) 800-160 MG per tablet Indications: Abscess of abdominal wall Take 1 tablet by mouth in the morning and at noon for 10 days 20 tablet 10/13/2024 10/23/2024 ActiveSyringe/Needle, Disp, (B-D 3CC LUER-HERMINIO SYR 23GX1 ) 23G X 1 3 ML misc (20 sources)Start: 23-16-4485Mpxdkzo/Needle, Disp, (B-D 3CC LUER-HERMINIO SYR 23GX1 ) 23G X 1 3 ML misc Indications: Male hypogonadism Inject 1 each into the shoulder, thigh, or buttocks every 14 (fourteen) days 50 each 11 10/04/2024 ActiveStart: 48-18-7751Saxpcyz/Needle, Disp, (B-D 3CC LUER-HERMINIO SYR 23GX1 ) 23G X 1 3 ML misc Indications: Male hypogonadism Inject 1 each into the shoulder, thigh, or buttocks every 14 (fourteen) days 50 each 11 12/24/2023 Active tadalafil 10 mg oral tablet (1 source)Phosphodiesterase 5 InhibitorStart: 74-17-1704ssypgvodh 10 mg Tab See Instructions, PRN for erectile dysfunction, 1-2 tab(s) po 60mins prior to sexual activity. do not exceed 20mg/24hrs, # 20 tab(s), Refills(s) 3, Pharmacy: [facility]/pharmacy #[id number], 188, cm, 06/03/23 10:01:00 EST, Height/Length Dosing, 138, kg, 06/03/23 10:01:00 EST, Weight Dosing Start Date: 06/03/23 Status: Ordered1 ml testosterone cypionate 200 mg/ml injection (20 sources)AndrogenStart: 12-24-2023 End: 65-32-1613ujazawfdiyfg cypionate (Depo-Testosterone) 200 MG/ML injection Indications: Male hypogonadism Inject 0.5 mL (100 mg) into the shoulder, thigh, or buttocks every 14 (fourteen) days 10 mL 2 11/09/2024 ActiveTestosterone Cypionate 200 mg/mL intramuscular solution (3 sources)Start: 44-86-6525Ctdspwnwkmkq Cypionate 200 mg/mL intramuscular solution Refills(s) 0 Start Date: 06/03/23 Status: OrderedtiZANidine 4 mg oral tablet (20 sources)Central alpha-2 Adrenergic Agonisttake 1 tablet by mouth every six hours as neededtiZANidine (Zanaflex) 4 MG tablet Take 4 mg by mouth every 6 (six) hours if needed for muscle spasms ActivetraMADol hydrochloride 50 mg oral tablet (20 sources)Opioid AgonistStart: 44-87-8963hepOQIGR 50 mg Tab Refills(s) 0 Start Date: 06/03/23 Status: OrderedtraMADol HCl ActivetraZODone hydrochloride 50 mg oral tablet (20 sources)Serotonin Reuptake InhibitorStart: 74-73-3097wijf 1 tablet by mouth at bedtimetraZODone (Desyrel) 50 MG tablet Indications: Primary insomnia Take 1 tablet (50 mg) by mouth at bedtime 30 tablet 3 12/27/2024 ActiveStart: 58-09-1812dwqv 1 tablet by mouth at bedtimetraZODone (Desyrel) 50 MG tablet Indications: Primary insomnia TAKE 1 TABLET BY MOUTH AT BEDTIME 30tablet 3 06/24/2024 ActiveStart: 87-20-2196hdzz 50 mg by mouth once daily at bedtime trazodone 50 mg, Oral, Once a day (at bedtime), Refills(s) 0 Start Date: 05/27/24 Status: OrderedStart: 43-15-3650fqtb 1 tablet by mouth at bedtime traZODone (Desyrel) 50 MG tablet Indications: Primary insomnia Take 1 tablet (50 mg) by mouth at bedtime 30 tablet 3 02/26/2024 ActiveVitamin D3 (3 sources)Start: 56-81-4798Bzkbnjf D3 50,000 International_Unit, BID, Refills(s) 0, Prophylaxis Start Date: 04/25/20 Status: Ordered Completed/Discontinued Medications MedicationDrug Class(es)DatesSig (Normalized)Sig (Original)LORazepam 0.5 mg oral tablet (1 source)BenzodiazepineStart: 79-43-1633Qimndz 0.5 mg Tab 1 mg = 2 tab(s), Oral, Once a day (at bedtime), take one tab 30 minutes prior to leaving house for biopsy. Take second one 30 minutes prior to scheduled time of biopsy if needed, # 2 tab(s), Refills(s) 0, Pharmacy: [facility]/pharmacy #[id number], 185.4, cm, 12/05/20 11:15:00 EDT, Height/Length Dosing, 153.8, kg, 12/05/20 11:15:00 EDT, Weight Dosing Start Date: 12/06/20 Status: Orderedtriamcinolone acetonide 40 mg/ml injectable suspension (4 sources)CorticosteroidStart: 99-72-9983Gpwzala-40 May, 40 mgStart: 48-97-1671Wsajgag -40 mg Jul, 40 mg Problems Active Problems Problem ClassificationProblemDateDocumented DateEpisodic/ChronicAcquired foot deformities (5 sources)Hallux rigidus, left foot; Translations: [Hallux valgus (acquired), left foot]Onset: 52-50-1788XjvrtviVfgoqt (1 source)Cough variant asthma; Translations: [COUGH VARIANT ASTHMA]Onset: 10-36-8719IqtkhxrMldnewsu of urinary tract (10 sources)Calculus of kidney; Translations: [Kidney stone]Onset: 05-27-2022 EpisodicCataract (20 sources)Bilateral age-related nuclear cataracts; Translations: [Age-related nuclear cataract, bilateral]Onset: 719267-87-6775ReuqxwaYxfvjlf kidney disease (2 sources)Chronic kidney disease stage 3A ; Translations: [Chronic kidney disease, stage 3a (CMS-HCC)]68-29-9476LdpurxlWwrqwsb ulcer of skin (5 sources)Non-pressure chronic ulcer of other part of left foot limited to breakdown of skin; Translations: [Non-pressure chronic ulcer of other part of left foot with unspecified severity]Onset: 85-88-1348KurjpfrExtpzcwfsrqkn of surgical procedures or medical care (5 sources)Other complications of procedures, not elsewhere classified, initial encounter; Translations: [OTH COMPLICATIONS PROC NEC INITIAL]Onset: 11-05-2022 EpisodicConditions associated with dizziness or vertigo (4 sources)Dizziness and giddiness; Translations: [DIZZINESS AND GIDDINESS] Onset: 16-29-6524AywfhkxlKpppnkepku heart failure; nonhypertensive (4 sources)Heart failure, unspecified; Translations: [HEART FAILURE UNSPECIFIED] Onset: 76-81-8555GdelvhyHhsjfhbe mellitus with complications (20 sources)Type 2 diabetes mellitus; Translations: [Type 2 diabetes mellitus with other specified complication]Onset: 54-30-6396EbyyhsmBsghbehn mellitus without complication (5 sources)Type 2 diabetes mellitus without complications; Translations: [TYPE 2 DM WITHOUT COMPLICATIONS]Onset: 12-98-9535ZfckzlvIseddioej of lipid metabolism (20 sources)Mixed hyperlipidemia; Translations: [Pure hypercholesterolemia, unspecified]Onset: 03-75-4777KszvkriFxhvudmbd of teeth and jaw (1 source)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; Translations: [ADHESIONS AND ANKYLOSIS LEFT TMJ]Onset: 42-34-2094HawgzdkqBztnkevbe hypertension (3 sources)Essential (primary) hypertension; Translations: [Essential (primary) hypertension]Onset: 02-67-0286PzxzjgaLwvgsiwyiatyd symptoms and ill-defined conditions (3 sources)Noidazch78-16-1652MqftbatwPobz and other crystal arthropathies (20 sources)Gout, unspecified; Translations: [Gouty arthropathy]Onset: 23-27-3721TnirwqmHayenvppr (4 sources)Steatohepatitis; Translations: [Nonalcoholic steatohepatitis (HODGES)] Onset: 04-12-2021 Resolved: 83-82-8991ZuhactvZjesanmksbl of prostate (8 sources)Benign prostatic hypertrophy with outflow obstruction; Translations: [Benign prostatic hyperplasia with lower urinary tract symptoms]Onset: 25-72-5801OgawajoMakkiwfnmrbmd mental health disorders (20 sources)Primary insomnia; Translations: [Primary insomnia]Onset: 01-12-2024 66-21-8090KozqerzMvmrmfjmq of unspecified nature or uncertain behavior (3 sources)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 17-13-1807NamjlytbPjlgqjahxgdlsw (20 sources)Arthritis of right knee; Translations: [Unilateral primary osteoarthritis, right knee]Onset: 08-07-2021 Resolved: 09-92-5917WpqwwcdVhdyn aftercare (1 source)Patient encounter status; Translations: [Aftercare following joint replacement surgery]47-31-5551RtdsfmgRcfyh aftercare (1 source)Aftercare following joint replacement surgery; Translations: [Aftercare following joint replacementsurgery]Onset: 44-24-4860FwdnyqaIpnnh aftercare (1 source)supervisor intermediates (current) use of oral hypoglycemic drugs; Translations: [SNF USE ORAL HYPOGLYCEMIC DX]Onset: 53-26-3660KnopspxyNvhma aftercare (1 source)Other terminal gauger (current) drug therapy; Translations: [OTH PRESCRIPTION CLERK CURRENT DRUG THERAPY]Onset: 64-47-8488MdwgawliIcijg aftercare (3 sources)Long-term current use of kmqnkxzokekqb00-84-0644GzdcdbpsWucew and unspecified benign neoplasm (3 sources)Benign neoplasm of descending btelx65-35-3806HdzuzcktQdkdq and unspecified benign neoplasm (3 sources)Benign neoplasm of sigmoid exqoi43-58-3866AmetacjcVnzzn and unspecified benign neoplasm (3 sources)History of polyp of -57-1284JungwsmiBlige connective tissue disease (1 source)Presence of left artificial knee joint; Translations: [Presence of left artificial knee joint]Onset: 20-65-8519QkoaiwbIvyek connective tissue disease (4 sources)Pain in left foot; Translations: [PAIN IN LEFT FOOT]Onset: 12-03-2022 EpisodicOther connective tissue disease (1 source)Myalgia, other site; Translations: [MYALGIA OTHER SITE]Onset: 48-60-5877AmfsiydtMjfjk connective tissue disease (4 sources)Arthrodesis status; Translations: [ARTHRODESIS STATUS]Onset: 43-38-9908SfsdvqoeDsdvn diseases of kidney and ureters (3 sources)Hydronephrosis co-occurrent and due to calculus of kidney and ureter 12-80-4930HyoarjhwAulhs endocrine disorders (3 sources)Testicular hypofunction; Translations: [Testicular hypofunction] Onset: 90-34-6124HcnauajUvdvw endocrine disorders (20 sources)Male hypogonadism; Translations: [Testicular hypofunction]Onset: 469884-83-3779TwgqvrvZbfpr liver diseases (3 sources)Lesion of liver; Translations: [Liver disease, unspecified]Chronic Other liver diseases (1 source)Fatty (change of) liver, not elsewhere classified; Translations: [FATTY CHANGE LIVER NEC]Onset: 71-59-8091ZaqjasvFibro liver diseases (15 sources)Non-alcoholic fatty liver; Translations: [Fatty (change of) liver, not elsewhere classified]Onset: 902398-49-4481LdiynlvNzton liver diseases (20 sources)Non-alcoholic fatty liver disease without non-alcoholic steatohepatitis; Translations: [Fatty (change of) liver, not elsewhere classified]Onset: 585162-93-0751HbgejtdZsgvk liver diseases (3 sources)Liver bxgk33-41-7260IcgqmjqzUoiqm lower respiratory disease (1 source)Personal history of pneumonia (recurrent); Translations: [PERSONAL HX OF PNEUMONIA RECURRENT]Onset: 57-14-4668HoutaaptDykor male genital disorders (6 sources)Male erectile dysfunction, unspecified; Translations: [Erectile dysfunction]Onset: 88-20-8171MigerduZjksk nervous system disorders (1 source)Other chronic pain; Translations: [OTHER CHRONIC PAIN]Onset: 19-75-2278TvbqgywLnqok non-traumatic joint disorders (2 sources)Pain in right kneeOnset: 08-07-2021 Resolved: 86-97-9192AgieqkolKdyrc nutritional; endocrine; and metabolic disorders (1 source)Morbid (severe) obesity due to excess calories; Translations: [MORBID SEVERE OBES D/T EXCESS RAFAEL]Onset: 83-96-4675NcdmdukQxust nutritional; endocrine; and metabolic disorders (1 source)Body mass index (BMI) 39.0-39.9, adult; Translations: [BODY MASS INDEX BMI 39.0-39.9 ADULT]Onset: 76-05-8992FzvsgesGyrhr nutritional; endocrine; and metabolic disorders (3 sources)Body mass index 40+ - severely nczan85-77-2220OfnlmelTxmlo nutritional; endocrine; and metabolic disorders (8 sources)Morbid obesity; Translations: [Morbid (severe) obesity due to excess calories]Onset: 648467-36-2731PwjtbzqDjjre nutritional; endocrine; and metabolic disorders (20 sources)Severe obesity; Translations: [Class 2 severe obesity due to excess calories with serious comorbidity and body mass index (BMI) of 37.0 to 37.9 in adult ([facility])]Onset: 760555-60-4635SmphiauDhudx skin disorders (1 source)Corns and callosities; Translations: [CORNS AND CALLOSITIES]Onset: 93-84-7474PllvgqbdJoetx upper respiratory disease (20 sources)Allergic rhinitis due to pollen; Translations: [Allergic rhinitis due to pollen]Onset: 693326-46-1302NxlzljcIgxlk upper respiratory infections (1 source)Acute upper respiratory infection, unspecified; Translations: [ACUTE UP RESPIRATORY INFECTION UNS]Onset: 19-56-2184GivzqqyqOknczsppy heart disease (6 sources)Personal history of pulmonary embolism; Translations: [H/O: pulmonary embolus]Onset: 65-81-1669QebytmodNuetzhuj codes; unclassified (1 source)Obstructive sleep apnea (adult) (pediatric); Translations: [OBSTRUCTIVE SLEEP APNEA]Onset: 42-47-2706JpsqkblTxadchtu codes; unclassified (20 sources)Obstructive sleep apnea syndrome; Translations: [Obstructive sleep apnea (adult) (pediatric)]Onset: 642452-80-6921YdvthddYzinwqin codes; unclassified (1 source)Family history of cancer; Translations: [Family history of malignant neoplasm of prostate]Onset: 81-14-0028CdeuyqvaDkyysjgb codes; unclassified (3 sources)Family history of prostate sbbmap42-61-9601CfckyazsYxqopvylxui; intervertebral disc disorders; other back problems (20 sources)Spondylosis without myelopathy or radiculopathy, lumbar region; Translations: [Unspecified thoracic, thoracolumbar and lumbosacral intervertebral disc disorder]Onset: 29-02-3291BvgkkoqMlkrjxotfed; intervertebral disc disorders; other back problems (7 sources)Muscle spasm of back; Translations: [Backache]Onset: 01-18-2023 EpisodicUnclassified (4 sources)LOW BACK PAIN, UNSPECIFIED; Translations: [LOW BACK PAIN, UNSPECIFIED]Onset: 37-49-1001Oczlhmaasktv (1 source)PERSONAL HISTORY OF COVID-19; Translations: [PERSONAL HISTORY OF COVID-19]Onset: 37-29-8945Lcbrnyxcevik (1 source)COUGH, UNSPECIFIED; Translations: [COUGH, UNSPECIFIED]Onset: 31-40-4126Obxvcsrdktkq (2 sources)Measurement ikpysbt73-31-5206 Past or Other Problems Problem ClassificationProblemDateDocumented DateEpisodic/ChronicOther aftercare (4 sources)Encounter for surgical aftercare following surgery on the circulatory system; Translations: [ENC SURG AFTRCARE FLW SURG CIRC SYS]Onset: 02-18-2022 EpisodicOther aftercare (20 sources)Long-term current use of drug therapy; Translations: [Other terminal gauger (current) drug therapy]Onset: 670102-49-8977EifsimrfFmgdx and unspecified benign neoplasm (1 source)Hemangioma of intra-abdominal structures; Translations: [Liver hemangioma D18.03]Onset: 04-12-2021 Resolved: 37-55-6465ZlptjxqkUmlpj connective tissue disease (1 source)Myalgia, unspecified site; Translations: [MYALGIA UNSPECIFIED SITE] Onset: 90-84-5316BxyoohwkAtwdr connective tissue disease (4 sources)Other muscle spasm; Translations: [OTHER MUSCLE SPASM]Onset: 15-23-4682EcflyfosUtcfh male genital disorders (1 source)Disorder of prostate, unspecified; Translations: [DISORDER OF PROSTATE UNSPECIFIED]Onset: 03-79-5361EpuhvhacRbmpm non-traumatic joint disorders (3 sources)Pain in left knee; Translations: [PAIN IN LEFT KNEE]Onset: 08-07-2021 Resolved: 17-33-1914MikuzyvgMynhi screening for suspected conditions (not mental disorders or infectious disease) (20 sources)Encounter for screening for malignant neoplasm of prostate; Translations: [Screening for malignant neoplasm done]Onset: 44-44-3908Oxykkrax Phlebitis; thrombophlebitis and thromboembolism (9 sources)Phlebitis and thrombophlebitis of superficial vessels of right lower extremity; Translations: [Phlebitis and thrombophlebitis of superficial vessels of left lower extremity]Onset: 54-78-5293MtlbhtvrRypu and subcutaneous tissue infections (20 sources)Cellulitis of left toe; Translations: [Abscess of abdominal wall] Onset: 12-11-2022 Resolved: 369332-06-6892BhuwrtkuFhhefhzjbufc (1 source)LOW BACK PAIN, UNSPECIFIED; Translations: [LOW BACK PAIN, UNSPECIFIED] Onset: 30-60-7761Ofhhlppizvgk (3 sources)Patient encounter dzjyyu88-11-1943Pkqxzyhf veins of lower extremity (5 sources)Varicose veins of bilateral lower extremities with pain; Translations: [VARICOSE VNS MARIE LOW EXTREMW/PAIN]Onset: 95-07-4492Spznatfe Results Test NameValueInterpretationReference RangeFacilityXR KNEE LEFT (3 VIEWS)on 76-26-5836RWLK: XR KNEE LEFT (3 VIEWS) HISTORY: Aftercare [...] LEFT (3 VIEWS)Ordered By: Radiologist Radiology on 48-98-0029CDJW [facility] Work Phone: XR KNEE LEFT (3 VIEWS)on 63-45-7557QH KNEE LEFT (3 VIEWS)EXAM: XR KNEE LEFT (3 VIEWS) HISTORY: Aftercare following left knee joint replacement surgery COMPARISON: 08/23/2024 left knee IMPRESSION: FINDINGS/IMPRESSION: 1. 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 2. Severe osteoarthritic change right knee. Interpreted by: Russ Rodriguez Jr., MD Signed by: Russ Rodriguez Jr., MD 01/31/25 Final resultNormalGood Samaritan HospitalRadiology Study observation (narrative) NOMS HealthcareXR Knee - left 3 Viewson 82-31-2988EJPEMAHA/IMPRESSION: 1. 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 2. Severe osteoarthritic change right knee. [facility] RIS CONSOLIDATEDEXAM: XR KNEE LEFT (3 VIEWS) HISTORY: Aftercare following left knee joint replacement surgery COMPARISON: 08/23/2024 left knee [facility] RIS Russ Gandara Jr., MD - 01/31/2025 EXAM: XR KNEE LEFT (3 VIEWS) HISTORY: Aftercare following left knee joint replacement surgery COMPARISON: 08/23/2024 left knee IMPRESSION: FINDINGS/IMPRESSION: 1. 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 2. Severe osteoarthritic change right knee. [facility] CampusRadiology Study observation (narrative)[facility] HospitalTello [facility] CampusXR Knee - left 3 ViewsOrdered By: Russ Rodriguez on 89-01-7745Vyn [facility] Work Phone: tbh MICROALB CREAT RATIO RANDOMon 21-51-7133VNIZNRVUUU URINE VHUFTZ225.87 mg/dL20.00 - 300.00 mg/dLNOPR HealthcareMICROALBUM CREATININE RATIO UR19.6 mg/g0.0 - 29.9 mg/gNOMS HealthcareComment on above:NO MICROALBUMINURIA 0-29 MG/G CLINICAL MICROALBUMINURIA 30-300 MG/G MACROALBUMINURIA >300 MG/G MICROALBUMIN URINE RANDOM5 mg/dLNINF - 30.0 mg/dLNOPR HealthcareCLINISYNCNVALIR REHABILITATION [facility] [place] HealthcareMHPT PSA, DIAGNOSTICon 57-74-5944FAKJSCOV SPECIFIC ANTIGEN DX1.32 ng/mLNINF - 4.00 ng/mLNOMS HealthcareCLINISYNCNOMS HealthcareXR Knee - left 1 or 2 Viewson 10-12-6850[address] [address] XRay Report Signed Patient: CARLOS CARABALLO MR#: [id number] : 1955 Acct:[id number] Age/Sex: 69 / M ADM Date: 10/04/24 Loc: EC Attending Dr: Daniele Valencia M.D. Ordering Physician: Daniele Valencia M.D. Date of Service: 10/04/24 Procedure(s): XR knee LT 2V Accession Number(s): [id number] cc: Daniele Valencia M.D.; Tulio Ruggiero M.D. The [address] [address] Patient Name: CARLOS CARABALLO MRN: [id number]:[id number] date: 1955 Sex: M Assigned Patient Location: Current Patient Location: Accession/Order Number: [id number] Exam Date: 10/04/2024 14:50 Report Date: 10/04/2024 [...] Sheppard Jr., D.O.10/04/2024 2:51 PM Dictation Location: [place] [address] Electronically authenticated by: [id number] Y Date: 10/04/2024 14:51 Dictated By: Rehan Sheppard M.D. Signed By: 10/04/24 1453 DD/ 1451 TD/TT: Marketing Programs Manager:MARTHAHRadiology, Radiologist, - 10/04/2024 The [place] [id number] XRay Report Signed Patient: CARLOS CARABALLO MR#: [id number] : 1955 Acct:[id number] Age/Sex: 69 / M ADM Date: 10/04/24 Loc: EC Attending Dr: Daniele Valencia M.D. Ordering Physician: Daniele Valencia M.D. Date of Service: 10/04/24 Procedure(s): XR knee LT 2V Accession Number(s): [id number] cc: Daniele Valencia M.D.; Tulio Ruggiero M.D. [address] [address] Patient Name: CARLOS CARABALLO MRN: [id number] date: 1955 Sex: M Assigned Patient Location: Current Patient Location: Accession/Order Number: [id number] Exam Date: 10/04/2024 14:50 Report Date: 10/04/2024 [...] Sheppard Jr., D.O.10/04/2024 2:51 PM Dictation Location: [place] [address] Electronically authenticated by: [id number] Y Date: 10/04/2024 14:51 Dictated By: Rehan Sheppard M.D. Signed By: 10/04/24 1453 DD/ 1451 TD/TT: Marketing Programs Manager: NOMS HealthcareRadiology Study observation (narrative)NOM HealthcareXR Knee - left 1 or 2 ViewsOrdered By: Radiologist Radiology on 36-95-7118QUTZ [facility] Work Phone: XR Knee - left 1 or 2 Viewson 52-40-0530Xnc[address] [address] XRay Report Signed Patient: CARLOS CARABALLO MR#: [id number] : 1955 Acct:[id number] Age/Sex: 69 / M ADM Date: 09/06/24 Loc: EC Attending Dr: Daniele Valencia M.D. Ordering Physician: Daniele Valencia M.D. Date of Service: 09/06/24 Procedure(s): XR knee LT 2V Accession Number(s): [id number] cc: Daniele Valencia M.D.; Tulio Ruggiero M.D. The [place] [id number] Patient Name: CARLOS CARABALLO MRN: [id number]:[id number] date: 1955 Sex: M Assigned Patient Location: Current Patient Location: Accession/Order Number: [id number] Exam Date: 09/06/2024 14:51 Report Date: 09/06/2024 [...] Brunilda Rogers M.D.09/06/2024 2:54 PM Dictation Location: [place] [address] Electronically authenticated by: [id number] Y Date: 09/06/2024 14:54 Dictated By: Brunilda Rogers M.D. Signed By: 09/06/24 1456 DD/ 1454 TD/TT: Marketing Programs Manager:MARTHAHRadiology, Radiologist, - 09/06/2024 The [place] [id number] XRay Report Signed Patient: CARLOS CARABALLO MR#: [id number] : 1955 Acct:[id number] Age/Sex: 69 / M ADM Date: 09/06/24 Loc: EC Attending Dr: Daniele Valencia M.D. Ordering Physician: Daniele Valencia M.D. Date of Service: 09/06/24 Procedure(s): XR knee LT 2V Accession Number(s): [id number] cc: Daniele Valencia M.D.; Tulio Ruggiero M.D. [place] [id number] Patient Name: CARLOS CARABALLO MRN: [id number] date: 1955 Sex: M Assigned Patient Location: Current Patient Location: Accession/Order Number: [id number] Exam Date: 09/06/2024 14:51 Report Date: 09/06/2024 [...] Brunilda Rogers M.D.09/06/2024 2:54 PM Dictation Location: [place] [address] Electronically authenticated by: [id number] Y Date: 09/06/2024 14:54 Dictated By: Brunilda Rogers M.D. Signed By: 09/06/24 1456 DD/ 1454 TD/TT: Marketing Programs Manager: ROMEL HealthcareRadiology Study observation (narrative)NOMS HealthcareXR Knee - left 1 or 2 ViewsOrdered By: Radiologist Radiology on 68-37-8205QALQ Healthcare Work Phone: all BASIC METABOLIC PANELon 67-64-4660Aaddl gap [Moles/Vol]14.3 mmol/LNOMS HealthcareCalcium [Mass/Vol]7.7 mg/dLLow8.5 - 10.1 mg/dLNOMS HealthcareChloride [Moles/Vol]108 mmol/LHigh98 - 107 mmol/LNOMS HealthcareCO2 [Moles/Vol]25.4 mmol/L21.0 - 32.0 mmol/LNOMS HealthcareCreatinine [Mass/Vol]1.62 mg/dLHigh0.70 - 1.30 mg/dLNOMS HealthcareGFR/1.73 sq M.predicted CKD-EPI (S/P/Bld) [Vol rate/Area]52Low>=60 mL/min/1.73m 2NOMS HealthcareGlucose [Mass/Vol]112 mg/gSBycq82 - 106 mg/dLNOMS HealthcareInterpretation and review of laboratory resultsAbnormalNOMS HealthcarePotassium [Moles/Vol]4.7 mmol/L3.5 - 5.1 mmol/LNOMS HealthcareSodium [Moles/Vol]143 mmol/L136 - 145 mmol/LNOMS HealthcareTBH EGFR-NON AF AVADUDVH37Qiw>=60 mL/min/1.73m 2NOMS HealthcareUrea nitrogen [Mass/Vol]28 mg/dLHigh7.0 - 18.0 mg/dLNOMS HealthcareUrea nitrogen/Creatinine [Mass ratio]17.3 mg/mgNOMS HealthcareCLINISYNCNVALIR REHABILITATION [facility] [place] [facility] HealthcareALL CBC WITH AUTO DIFFon 94-92-9729OPDBBWHXU ABSOLUTE DGXN9HYUG HealthcareBasophils/100 WBC (Bld)0.6 %0.2 - 2.0 %NOMS HealthcareEosinophils/100 WBC (Bld)4.9 %0.9 - 7.0 %NOMS HealthcareErythrocyte distribution width (RBC) [Ratio]13.5 %11.0 - 15.0 %NOMS HealthcareHematocrit (Bld) [Volume fraction]43.4 %42.0 - 54.0 %NOMS HealthcareHemoglobin (Bld) [Mass/Vol]14.7 g/dL14.0 - 18.0 g/dLNOPR HealthcareIMMATURE GRANULOCYTES ABS AUTO0.03NOPR HealthcareImmature granulocytes/100 WBC (Bld)0.4 %0.0 - 0.5 %NOMS HealthcareInterpretation and review of laboratory resultsAbnormalNOPR HealthcareLYMPHOCYTES ABSOLUTE AUTO2.2 NOMS HealthcareLymphocytes/100 WBC (Bld)30.6 %20.5 - 60.0 %NOMS [facility] HospitalMCH (RBC) [Entitic mass]32.8 pg25.9 - 34.0 pgNOPhelps HealthMCHC (RBC) [Mass/Vol] 33.9 g/dL29.9 - 35.2 g/dLNOPhelps HealthMCV (RBC) [Entitic vol]96.9 oRDyrw15.0 - 94.0 fLNOMS HealthcareMONOCYTES ABSOLUTE AUTO0.6NOMS HealthcareMonocytes/100 WBC (Bld)8.3 %1.7 - 12.0 %NOMS HealthcareNEUTROPHILS ABSOLUTE AUTO3.9N[facility]S Healthcare Neutrophils/100 WBC (Bld)55.2 %43.0 - 75.0 %NOMS HealthcarePlatelet mean volume (Bld) [Entitic vol]8.8 fLLow9.5 - 13.5 fLNOMS HealthcareTBH EO #0.4NOMS HealthcareTBH [id number] HealthcareTBH RBC4.48LowNOMS HealthcareTBH WBC7.1NOMS HealthcareCLINISYNCNOMS HealthcareXR Knee - left 4 Viewson 28-72-2002[place], [place] [address] XRay Report Signed Patient: CARLOS CARABALLO MR#: [id number] : 1955 Acct:[id number] Age/Sex: 69 / M ADM Date: 08/23/24 Loc: SURGOUT Attending Dr: Daniele Valencia M.D. Ordering Physician: Daniele Valencia M.D. Date of Service: 08/23/24 Procedure(s): XR knee LT 4V Accession Number(s): [id number] cc: Daniele Valencia M.D.; Tulio Ruggiero M.D. The [place] [address] Patient Name: CARLOS CARABALLO MRN: [id number] date: 1955 Sex: M Assigned Patient Location: [facility] Current Patient Location: [facility] Accession/Order Number: [id number] Exam Date: 08/23/2024 12:30 Report Date: 08/23/2024 [...] M.D. Signed By: 08/23/241307 DD/ 04 TD/TT: Marketing Programs Manager:SIDDHARTHAadiologantonio, Radiologist, - 08/23/2024 [place] [address] XRay Report Signed Patient: CARLOS CARABALLO MR#: [id number] : 1955 Acct:[id number] Age/Sex: 69 / M ADM Date: 08/23/24 Loc: SURGOUT Attending Dr: Daniele Valencia M.D. Ordering Physician: Daniele Valencia M.D. Date of Service: 08/23/24 Procedure(s): XR knee LT 4V Accession Number(s): [id number] cc: Daniele Valencia M.D.; Tulio Ruggiero M.D. The [place] [id number] Patient Name: CARLOS CARABALLO MRN: [facility]:[id number] date: 1955 Sex: M Assigned Patient Location: [facility] Current Patient Location: [facility] Accession/Order Number: [id number] Exam Date: 08/23/2024 12:30 Report Date: 08/23/2024 [...] M.D. Signed By: 08/23/241307 DD/ 1305 TD/TT: Marketing Programs Manager: [facility] HealthcareRadiology Study observation (narrative)[facility] HospitalXR Knee - left 4 ViewsOrdered By: Radiologist Radiology on 04-06-1494CXFPTwo Rivers Psychiatric Hospital Work Phone: aLL TYPE AND SCREENon 99-25-7882XOD and Rh group Nom (Bld)Blood group B Rh(D) positiveNovant Health Charlotte Orthopaedic HospitalALL TYPE AND SCREENon 16-22-0352PVK and Rh group Nom (Bld)Blood group B Rh(D) positiveNovant Health Charlotte Orthopaedic HospitalXR Knee Standing AP Bilateralon 67-87-4527VN Knee Standing AP BilateralEXAM: XR Knee Standing [...] Signed, Electronically Signed in Other Vendor System)Normal [facility] HospitalALL MISCELLANEOUS TESTon 69-59-8367HDQPYJCGJNOUL TESTCOMMENT.[facility] HealthcareComment on above:Test Ordered: [id number] Nicotine and Metabolite, Ur Qn Nicotine <10.0 ng/mL Reference Range: . This test was developed and its performance characteristics determined by [facility]. It has not been cleared or approved by the Food and Drug Administration. Nicotine levels greater than 100.0 are consistent with the use of tobacco or tobacco cessation products. Cotinine <10.0 ng/mL Reference Range: . This test was developed and its performance characteristics determined by [facility]. It has not been cleared or approved by the Food and Drug Administration. Cotinine levels greater than 200.0 are consistent with the use of tobacco or tobacco cessation products. Performed at: [address] [id number] Photography Editor: Giovany Bhatt MD, Phone: [phone] Performed at: [facility] Lab[address] [id number] Photography Editor: Ivan Mckay PhD, Phone: [phone] Nicotine and Metabolite, Quantitative, Urine [facility]YErl[facility] Knee Surg.Navigate or Plan ONLY Lefton 65-49-8631[facility] Knee Surg.Navigate or Plan ONLY LeftHISTORY: Arthritis [...] Signed, Electronically Signed in Other Vendor System)Normal [facility] HospitalXR Knee 1 or 2 Views Lefton 79-74-6239EI Knee 1 or 2 Views LeftEXAM: Left [...] Signed, Electronically Signed in Other Vendor System)Normal Berger HospitalMRSA SCREENING CULTUREon 54-89-1617GCWCIYGO0 MRSA Screening Culture NOMS IxpdstpytuXCBKWPAV4YxkyaxycLNYM NoawknitelXWQWEGEV5Etwbhhmfy at: CB - [facility] HealthLyufddffidGVNFPDEO[address] [place], [place] [address]QNOGTwo Rivers Psychiatric HospitalEsfouewkytPFBGXWFQ0Ecp Director: Ivan Mckay PhD, Phone: [phone] Rivers Psychiatric HospitalCLINISYNCNVALIR REHABILITATION [facility] HealthcareALL CBC WITH AUTO DIFFon 85-76-1231KPXMUDFMW ABSOLUTE AUTO0.1NOMS HealthcareBasophils/100 WBC (Bld)0.9 %0.2 - 2.0 %NOMS HealthcareEosinophils/100 WBC (Bld)4.9 %0.9 - 7.0 %NOM HealthcareErythrocyte distribution width (RBC) [Ratio]13.7 %11.0 - 15.0 %NOM HealthcareHematocrit (Bld) [Volume fraction]44.7 %42.0 - 54.0 %NOM HealthcareHemoglobin (Bld) [Mass/Vol]14.9 g/dL14.0 - 18.0 g/dLNOPhelps HealthIMMATURE GRANULOCYTES ABS AUTO 0.02NOMS HealthcareImmature granulocytes/100 WBC (Bld)0.3 %0.0 - 0.5 %[facility] HealthcareInterpretation and review of laboratory resultsAbnormalNOPhelps Health LYMPHOCYTES ABSOLUTE AUTO1.5NOPhelps HealthLymphocytes/100 WBC (Bld)23 %20.5 - 60.0 %[facility] HospitalH (RBC) [Entitic mass]32.3 pg25.9 - 34.0 pgNODoctors Hospital of SpringfieldHC (RBC) [Mass/Vol]33.3 g/dL29.9 - 35.2 g/dLTwo Rivers Psychiatric HospitalMCV (RBC) [Entitic vol]97 nUGgpv79.0 - 94.0 fLNOPR HealthcareMONOCYTES ABSOLUTE AUTO0.5 NOM HealthcareMonocytes/100 WBC (Bld)7.9 %1.7 - 12.0 %NOM Healthcare NEUTROPHILS ABSOLUTE AUTO4.1NOMS HealthcareNeutrophils/100 WBC (Bld)63 %43.0 - 75.0 %NOMS HealthcarePlatelet mean volume (Bld) [Entitic vol]8.8 fLLow9.5 - 13.5 fLNOMS HealthcareTBH EO #0.3NOMS HealthcareTBH PEE358FSNW HealthcareTBH RBC4.61 LowNOMS HealthcareTBH WBC6.6NOMS HealthcareCLINISYNCNOMS HealthcareECG 12-LEADon 00-24-6225Asz[place], [place] [address] Electrocardiograph Report Signed Patient: CARLOS CARABALLO MR#: [id number] : 1955 Acct:[id number] Age/Sex: 68 / M ADM Date: 07/20/24 Loc: PST Attending Dr: Daniele Valencia M.D. Ordering Physician: Daniele Valencia M.D. Date of Service: 07/20/24 Procedure(s): ECG 12 lead Accession Number(s): [id number] cc: [facility] Test Date: 2024-07-20 Pat Name: CARLOS CARABALLO Department: Room: - Gender: Male Family Resource Management Specialist: : 1955 Requested By: TULIO RUGGIERO Order Number: [id number] Reading MD: ABDOULAYE PADILLA Measurements Intervals [place] Rate: 83 P: -3 MS: 155 QRS: -53 QRSD: 141 T: 33 [...] D.O. Signed By: 07/20/242001 DD/ 0950 TD/TT: Marketing Programs Manager:TBHRadiology, Radiologist, - 07/20/2024 The [place] [id number] Electrocardiograph Report Signed Patient: CARLOS CARABALLO MR#: [id number] : 1955 Acct:[id number] Age/Sex: 68 / M ADM Date: 07/20/24 Loc: PST Attending Dr: Daniele Valencia M.D. Ordering Physician: Daniele Valencia M.D. Date of Service: 07/20/24 Procedure(s): ECG 12 lead Accession Number(s): [id number] cc: [facility] Test Date: 2024-07-20 Pat Name: CARLOS CARABALLO Department: Room: - Gender: Male Family Resource Management Specialist: : 1955 Requested By: TULIO RUGGIERO Order Number: [id number] Reading MD: ABDOULAYE PADILLA Measurements Intervals [place] Rate: 83 P: -3 MS: 155 QRS: -53 QRSD: 141 T: 33 QT: 381 QTc: 449 Interpretive Statements SINUS RHYTHM RIGHT BUNDLE BRANCH BLOCK [120+ ms QRS DURATION, UPRIGHT V1, 40+ ms S IN I/aVL/V4/V5/V6] LEFT ANTERIOR FASCICULAR BLOCK [QRS AXIS <= -45, QR IN I, RS IN II] Electronically Signed On 07-20-2024 20:01:41 EST by ABDOULAYE PADILLA Dictated By: Abdoulaye Padilla D.O. Signed By: 07/20/242001 DD/ TD/TT: Marketing Programs Manager: [place] [address] Electrocardiograph Report Signed Patient: CARLOS CARABALLO MR#: [id number] : 1955 Acct:[id number] Age/Sex: 68 / M ADM Date: 07/20/24 Loc: PST Attending Dr: Daniele Valencia M.D. Ordering Physician: Daniele Valencia M.D. Date of Service: 07/20/24 Procedure(s): ECG 12 lead Accession Number(s): [id number] cc: [facility] Test Date: 2024-07-20 Pat Name: CARLOS CARABALLO Department: Room: - Gender: Male Family Resource Management Specialist: : 1955 Requested By: 2089 Order Number: [id number] Reading MD: ABDOULAYE PADILLA Measurements Intervals [place] Rate: 73 P: 65 MS: 169 QRS: -58 QRSD: 140 T: 38 QT: 387 QTc: 429 Interpretive Statements SINUS RHYTHM RIGHT BUNDLE BRANCH BLOCK [120+ ms QRS DURATION, UPRIGHT V1, 40+ ms S IN I/aVL/V4/V5/V6] LEFT ANTERIOR FASCICULAR BLOCK [QRS AXIS <= -45, QR IN I, RS IN II] Electronically Signed On 07-20-2024 20:01:19 EST by ABDOULAYE PADILLA Dictated By: Abdoulaye Padilla D.O. Signed By: 07/20/242000 DD/ TD/TT: Marketing Programs Manager:TBHRadiology, Radiologist, - 07/20/2024 [place] [address] Electrocardiograph Report Signed Patient: CARLOS CARABALLO MR#: [id number] : 1955 Acct:[id number] Age/Sex: 68 / M ADM Date: 07/20/24 Loc: PST Attending Dr: Daniele Valencia M.D. Ordering Physician: Daniele Valencia M.D. Date of Service: 07/20/24 Procedure(s): ECG 12 lead Accession Number(s): [id number] cc: [facility] Test Date: 2024-07-20 Pat Name: CARLOS CARABALLO Department: Room: - Gender: Male Family Resource Management Specialist: : 1955 Requested By: 2089 Order Number: [id number] Reading MD: ABDOULAYE PADILLA Measurements Intervals [place] Rate: 73 P: 65 MS: 169 QRS: -58 QRSD: 140 T: 38 QT: 387 QTc: 429 Interpretive Statements SINUS RHYTHM RIGHT BUNDLE BRANCH BLOCK [120+ ms QRS DURATION, UPRIGHT V1, 40+ ms S IN I/aVL/V4/V5/V6] LEFT ANTERIOR FASCICULAR BLOCK [QRS AXIS <= -45, QR IN I, RS IN II] Electronically Signed On 07-20-2024 20:01:19 EST by ABDOULAYE PADILLA Dictated By: Abdoulaye Padilla D.O. Signed By: 07/20/242000 DD/ TD/TT: Marketing Programs Manager: [facility] HealthcareRadiology Study observation (narrative)[facility] HealthcareRadiology Study observation (narrative)NOMS HealthcareECG 12-LEADOrdered By: Radiologist Radiology on 68-20-6801HE[facility] Work Phone: [facility] Work Phone: TB UA (CLEAN/CATCH) MANUFACTURING ENGINEER AUTOMOTIVE/MICRO IF IND.on 07-20-2024 BILIRUBIN URINENegativeNEGATIVENOMS HealthcareBLOOD URINENegativeNEGATIVENOMS HealthcareClarity (U)CLEARCLEARNOMS HealthcareColor (U)LT. YELLOWYELLOWNOMS HealthcareGLUCOSE URINE UANegativeNEGATIVE mg/dLNOMS HealthcareKetones Ql (U) NegativeNEGATIVE mg/dLNOMS HealthcareLeukocyte esterase Test strip Ql (U) NegativeNEGATIVENOMS HealthcareNITRITE URINENegativeNEGATIVENOMS HealthcarepH (U)6.0 [pH]5.0 - 9.0NOMS HealthcarePROTEIN URINENegativeNEG/TRACE mg/dLNOMS HealthcareSPECIFIC GRAVITY URINE1.0251.005 - 1.025NOMS HealthcareURINE MICROSCOPIC INDICATEDNONOMS HealthcareUROBILINOGEN URINE0.2 EU/dL0.2 - 1.0 EU/dL NOMS HealthcareCLINISYNCNOMS HealthcareXR CHEST 2Von 16-26-9669Alm [place] [address] XRay Report Signed Patient: CARLOS CARABALLO MR#: [id number] : 1955 Acct:[id number] Age/Sex: 68 / M ADM Date: 07/20/24 Loc: [facility] Attending Dr: Daniele Valencia M.D. Ordering Physician: Daniele Valencia M.D. Date of Service: 07/20/24 Procedure(s): XR chest 2V Accession Number(s): [id number] cc: Daniele Valencia M.D.; Tulio Ruggiero M.D. The [address] [address] Patient Name: CARLOS CARABALLO MRN: [id number] date: 1955 Sex: M Assigned Patient Location: [facility] Current Patient Location: LAB Accession/Order Number: [id number] Exam Date: 07/20/2024 10:06 Report Date: 07/20/2024 [...] M.D. Signed By: 07/20/241706 DD/ 04 TD/TT: Marketing Programs Manager:TBHRadiology, Radiologist, - 07/20/2024 [place] [address] XRay Report Signed Patient: CARLOS CARABALLO MR#: [id number] : 1955 Acct:[id number] Age/Sex: 68 / M ADM Date: 07/20/24 Loc: [facility] Attending Dr: Daniele Valencia M.D. Ordering Physician: Daniele Valencia M.D. Date of Service: 07/20/24 Procedure(s): XR chest 2V Accession Number(s): [id number] cc: Daniele Valencia M.D.; Tulio Ruggiero M.D. The [address] [id number] Patient Name: CARLOS CARABALLO MRN: [id number] date: 1955 Sex: M Assigned Patient Location: [facility] Current Patient Location: LAB Accession/Order Number: [id number] Exam Date: 07/20/2024 10:06 Report Date: 07/20/2024 [...] M.D. Signed By: 07/20/241706 DD/ 04 TD/TT: Marketing Programs Manager: ROMEL HealthcareRadiology Study observation (narrative)ROMEL CrumpXR CHEST 2V Ordered By: Radiologist Radiology on 86-36-9225ZPMR Healthcare Work Phone: ca ECHO DOPPLER COMPLETEon 74-28-7049QawKinney, [place] [address] Cardiology Report Signed Patient: CARLOS CARABALLO MR#: [id number] : 1955 Acct:[id number] Age/Sex: 68 / M ADM Date: 06/28/24 Loc: CARD Attending Dr: Ken Mercer M.D. Ordering Physician: Ken Mercer M.D. Date of Service: 06/28/24 Procedure(s): CA echo doppler complete Accession Number(s): [id number] cc: Ken Mercer M.D.; Tulio Ruggiero M.D. Patient Name: CARLOS CARABALLO MR#: [id number] : 1955 Exam Date: 06/28/2024 Ordering Doctor: [...] Dictated By: AMARI MCMANUS (more content not included)...[facility] Radiology, Radiologist, MD - 06/28/2024 [place] [address] Cardiology Report Signed Patient: CARLOS CARABALLO MR#: [id number] : 1955 Acct:[id number] Age/Sex: 68 / M ADM Date: 06/28/24 Loc: CARD Attending Dr: Ken Mercer M.D. Ordering Physician: Ken Mercer M.D. Date of Service: 06/28/24 Procedure(s): CA echo doppler complete Accession Number(s): [id number] cc: Ken Mercer M.D.; Tulio Ruggiero M.D. Patient Name: CARLOS CARABALLO MR#: [id number] : 1955 Exam Date: 06/28/2024 Ordering Doctor: [...] Signed By: 06/28/24 175 DD/ 174 TD/TT: Marketing Programs Manager: [facility] HospitalRadiology Study observation (narrative)[facility] ECHO DOPPLER COMPLETEOrdered By: Radiologist Radiology on 37-55-0158[employer] Work Phone: XR Knee - bilateral 4 Viewson 43-52-4620[place], [place] [address] XRay Report Signed Patient: CARLOS CARABALLO MR#: [id number] : 1955 Acct:[id number] Age/Sex: 68 / M ADM Date: 06/21/24 Loc: EC Attending Dr: Daniele Valencia M.D. Ordering Physician: Daniele Valencia M.D. Date of Service: 06/21/24 Procedure(s): XR knee MARIE 4V Accession Number(s): [id number] cc: Daniele Valencia M.D.; Tulio Ruggiero M.D. [address] [address] Patient Name: CARLOS CARABALLO MRN: [id number] date: 1955 Sex: M Assigned Patient Location: EC Current Patient Location: Accession/Order Number: [id number] Exam Date: 06/21/2024 13:16 Report Date: 06/23/2024 06:16 At the request of: DANIELE VALENCIA Procedure: XR knee MARIE 4V EXAMINATION: XR knee MARIE 4V HISTORY: BILATERAL KNEE PAIN COMPARISON: XR knee bilateral 03/24/2023 FINDINGS: RIGHT FINDINGS: BONES: Marked narrowing of the medial joint space with hbbi-bh-bjje articulation. 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 SOFT TISSUES: No visible soft tissue swelling. OTHER: Small joint effusion. LEFT FINDINGS: BONES: Marked narrowing of the medial joint space with cvxi-pp-pugt articulation. Periarticular degenerative osteophytes involving all 3 [...] M.D. Signed By: 06/23/24618 DD/ 5 TD/TT: Marketing Programs Manager:TBHRadiology, Radiologist, MD - 06/23/2024 [place] [address] XRay Report Signed Patient: CARLOS CARABALLO MR#: [id number] : 1955 Acct:[id number] Age/Sex: 68 / M ADM Date: 06/21/24 Loc: [facility] Attending Dr: Daniele Valencia M.D. Ordering Physician: Daniele Valencia M.D. Date of Service: 06/21/24 Procedure(s): XR knee MARIE 4V Accession Number(s): [id number] cc: Daniele Valencia M.D.; Tulio Ruggiero M.D. [facility] [place] [address] Patient Name: CARLOS CARABALLO MRN: [id number] date: 1955 Sex: M Assigned Patient Location: [facility] Current Patient Location: Accession/Order Number: [id number] Exam Date: 06/21/2024 13:16 Report Date: 06/23/2024 06:16 At the request of: DANIELE VALENCIA Procedure: XR knee MARIE 4V EXAMINATION: XR knee MARIE 4V HISTORY: BILATERAL KNEE PAIN COMPARISON: XR knee bilateral 03/24/2023 FINDINGS: RIGHT FINDINGS: BONES: Marked narrowing of the medial joint space with upel-nh-jmxv articulation. 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 SOFT TISSUES: No visible soft tissue swelling. OTHER: Small joint effusion. LEFT FINDINGS: BONES: Marked narrowing of the medial joint space with sely-hz-rdnj articulation. Periarticular degenerative osteophytes involving all 3 [...] M.D. Signed By: 06/23/24618 DD/ 5 TD/TT: Marketing Programs Manager: ROMEL HealthcareRadiology Study observation (narrative)[facility] HospitalXR Knee - bilateral 4 ViewsOrdered By: Radiologist Radiology on 10-10-2043[employer] Work Phone: [facility] 02-43-3846ExhfiiwdhJdtozaxis From: Cyndi Montano To: EU - Administrative; Sent: 06/04/2024 12:06:06 EST Show up: 06/04/2024 12:05:00 EST Subject: Ambulatory Reminder Due Date/Time: 05/28/2025 12:05:00 EST Reminder/Recall Patient needs scheduled for a 1 yr f/u, PCP to check PSA. Due back in 06/07 M to call and scheduleT[facility] CenterUrology Office/Clinic Noteon 05-33-5122[place] Office/Clinic NoteUrology Office/Clinic Note Chief Complaint 5mo [...] E&M of Est. Patient Moderate 30-39 Min 12747 Influenza immunization status assessed 1030F Medication list [...] E&M of Est. Patient Moderate 30-39 Min 56384 3. Hypogonadism male (E29.1: Testicular hypofunction) Managed by PCP. On T injections. Ordered: Complex E&M Add on G2211 E&M of Est. Patient Moderate 30-39 Min 44118 4. ED (erectile dysfunction) (N52.9: Male erectile dysfunction, unspecified) Failed Tadalafil. A lot of neuropathy. Not interested in additional tx. Ordered: Complex E&M Add on G2211 E&M of Est. Patient Moderate 30-39 Min 88857 Follow-up With When Contact Information LIZ ABREU PA-C, URL Within 1 year Additional Instructions: Patient Education Kidney Stones, Diqr-ki-Ugic Problem List/Past Medical History Ongoing Abnormal abdominal [...] BPH with urinary obstructio (more content not included)...[facility] CenterComment on above:Result Comment: Electronically Signed By: LIZ ABREU PA-C\.br\Date and Time Signed: 05/27/2409:57 ESTXR ABDOMEN 1Von 68-65-[place], [place] [address] XRay Report Signed Patient: CARLOS CARABALLO MR#: [id number] : 1955 Acct:[id number] Age/Sex: 68 / M ADM Date: 05/17/24 Loc: RAD Attending Dr: Liz MARTELL Ordering Physician: Liz Abreu Date of Service: 05/17/24 Procedure(s): XR abdomen 1V Accession Number(s): [id number] cc: Tulio Ruggiero M.D.; Liz Abreu [address] [address] Patient Name: CARLOS CARABALLO MRN: [id number] date: 1955 Sex: M Assigned Patient Location: RAD Current Patient Location: Accession/Order Number: [id number] Exam Date: 05/17/2024 08:50 Report Date: 05/18/2024 [...] Steele M.D. Signed By: 05/18/2456 DD/ TD/TT: Marketing Programs Manager:SIDDHARTHAadiologantonio, Radiologist, - 05/18/2024 [place] [address] XRay Report Signed Patient: CARLOS CARABALLO MR#: [id number] : 1955 Acct:[id number] Age/Sex: 68 / M ADM Date: 05/17/24 Loc: RAD Attending Dr: Liz MARTELL Ordering Physician: Liz Abreu Date of Service: 05/17/24 Procedure(s): XR abdomen 1V Accession Number(s): [id number] cc: Tulio Ruggiero M.D.; Liz Abreu [place] [id number] Patient Name: CARLOS CARABALLO MRN: [id number] date: 1955 Sex: M Assigned Patient Location: RAD Current Patient Location: Accession/Order Number: [id number] Exam Date: 05/17/2024 08:50 Report Date: 05/18/2024 [...] Steele M.D. Signed By: 05/18/2456 DD/ TD/TT: Marketing Programs Manager: [facility] HealthcareRadiology Study observation (narrative)NOM HealthcareXR ABDOMEN 1VOrdered By: Radiologist Radiology on 09-91-4376[employer]JQ [employer] Work Phone: XR FOOT LT MIN 3Von 70-95-8137[place], [place] [address] XRay Report Signed Patient: CARLOS CARABALLO MR#: [id number] : 1955 Acct:[id number] Age/Sex: 68 / M ADM Date: 02/11/24 Loc: EC Attending Dr: Tonio Bell D.P.M. Ordering Physician: Tonio Bell D.P.M. Date of Service: 02/11/24 Procedure(s): XR foot LT min 3V Accession Number(s): [id number] cc: Tonio Bell D.P.M.; Tulio Ruggiero M.D. The [place] [id number] Patient Name: CARLOS CARABALLO MRN: [id number] date: 1955 Sex: M Assigned Patient Location: EC Current Patient Location: Accession/Order Number: [id number] Exam Date: 02/11/2024 10:36 Report Date: 02/12/2024 [...] M.D. Signed By: 02/12/24625 DD/ 3 TD/TT: Marketing Programs Manager:TBHRadiology, Radiologist, - 02/12/2024 [place] [address] XRay Report Signed Patient: CARLOS CARABALLO MR#: [id number] : 1955 Acct:[id number] Age/Sex: 68 / M ADM Date: 02/11/24 Loc: EC Attending Dr: Tonio Bell D.P.M. Ordering Physician: Tonio Bell D.P.M. Date of Service: 02/11/24 Procedure(s): XR foot LT min 3V Accession Number(s): [id number] cc: Tonio Bell D.P.M.; Tulio Ruggiero M.D. The [place] [id number] Patient Name: CARLOS CARABALLO MRN: [id number] date: 1955 Sex: M Assigned Patient Location: Current Patient Location: Accession/Order Number: [id number] Exam Date: 02/11/2024 10:36 Report Date: 02/12/2024 [...] M.D. Signed By: 02/12/24625 DD/ 3 TD/TT: Marketing Programs Manager: [facility] HealthcareRadiology Study observation (narrative)NOM HealthcareXR FOOT LT MIN 3VOrdered By: Radiologist Radiology on 09-43-5940[facility] Work Phone: XR FOOT LT MIN 3Von [phone], [place] [address] XRay Report Signed Patient: CARLOS CARABALLO MR#: [id number] : 1955 Acct:[id number] Age/Sex: 68 / M ADM Date: 10/08/23 Loc: EC Attending Dr: Tonio Bell D.P.M. Ordering Physician: Tonio Bell D.P.M. Date of Service: 10/08/23 Procedure(s): XR foot LT min 3V Accession Number(s): [id number] cc: Tonio Bell D.P.M.; Tulio Ruggiero M.D. [place] [id number] Patient Name: CARLOS CARABALLO MRN: [id number] date: 1955 Sex: M Assigned Patient Location: Current Patient Location: Accession/Order Number: [id number] Exam Date: 10/08/2023 08:55 Report Date: 10/09/2023 [...] Signed By: 10/09/23 0553 DD/ 0550 TD/TT: Marketing Programs Manager:SIDDHARTHAadiology, Radiologist, - 10/09/2023 [place] [address] XRay Report Signed Patient: CARLOS CARABALLO MR#: [id number] : 1955 Acct:[id number] Age/Sex: 68 / M ADM Date: 10/08/23 Loc: EC Attending Dr: Tonio Bell D.P.M. Ordering Physician: Tonio Bell D.P.M. Date of Service: 10/08/23 Procedure(s): XR foot LT min 3V Accession Number(s): [id number] cc: Tonio Bell D.P.M.; Tulio Ruggiero M.D. The [place] [id number] Patient Name: CARLOS CARABALLO MRN: [id number] date: 1955 Sex: M Assigned Patient Location: Current Patient Location: Accession/Order Number: [id number] Exam Date: 10/08/2023 08:55 Report Date: 10/09/2023 [...] Mccartney M.D. Signed By: 10/09/2353 DD/ TD/TT: Marketing Programs Manager: ROMEL HealthcareRadiology Study observation (narrative)[facility] HealthcareXR FOOT LT MIN 3VOrdered By: Radiologist Radiology on 04-69-1229[facility] Work Phone: ct FOOT LT WO CONon 51-85-4562[place], [place] [address] CT Scan Report Signed Patient: CARLOS CARABALLO MR#: [id number] : 1955 Acct:[id number] Age/Sex: 67 / M ADM Date: 07/04/23 Loc: CT Attending Dr: Tonio Bell D.P.M. Ordering Physician: Tonio Bell D.P.M. Date of Service: 07/04/23 Procedure(s): CT foot LT wo con Accession Number(s): [id number] cc: Tulio Ruggiero M.D. [place] [phone] Patient Name: CARLOS CARABALLO MRN: [id number] date: 1955 Sex: M Assigned Patient Location: CT Current Patient Location: Accession/Order Number: [id number] Exam Date: 07/04/2023 10:18 Report Date: 07/05/2023 [...] Signed By: 07/05/23153 DD/ 1 TD/TT: Marketing Programs Manager:TBHRadiology, Radiologist, MD - 07/05/[address] [address] [address] Scan Report Signed Patient: CARLOS CARABALLO MR#: [id number] : 1955 Acct:[id number] Age/Sex: 67 / M ADM Date: 07/04/23 Loc: CT Attending Dr: Tonio Bell D.P.M. Ordering Physician: Tonio Bell D.P.M. Date of Service: 07/04/23 Procedure(s): CT foot LT wo con Accession Number(s): [id number] cc: Tulio Ruggiero M.D. The [address] [address] Patient Name: CARLOS CARABALLO MRN: [id number] date: 1955 Sex: M Assigned Patient Location: CT Current Patient Location: Accession/Order Number: [id number] Exam Date: 07/04/2023 10:18 Report Date: 07/05/2023 [...] Signed By: 07/05/23153 DD/ 1 TD/TT: Marketing Programs Manager: ROMEL HealthcareRadiology Study observation (narrative)NOM HealthcareCT FOOT LT WO CONOrdered By: Radiologist Radiology on 14-55-5378[facility] Work Phone: XR FOOT LT MIN 3Von 85-47-8442[place], [place] [address] XRay Report Signed Patient: CARLOS CARABALLO MR#: [id number] : 1955 Acct:[id number] Age/Sex: 67 / M ADM Date: 07/02/23 Loc: RAD Attending Dr: Tonio Bell D.P.M. Ordering Physician: Tonio Bell D.P.M. Date of Service: 07/02/23 Procedure(s): XR foot LT min 3V Accession Number(s): [id number] cc: Tonio Bell D.P.M.; Tulio Ruggiero M.D. The [place] [id number] Patient Name: CARLOS CARABALLO MRN: [id number] date: 1955 Sex: M Assigned Patient Location: [facility] Current Patient Location: [facility] Accession/Order Number: [id number] Exam Date: 07/02/2023 08:44 Report Date: 07/02/2023 [...] Signed By: 07/02/23 1038 DD/ 1035 TD/TT: Marketing Programs Manager:SIDDHARTHAadiology, Radiologist, - 07/02/2023 [place] [address] XRay Report Signed Patient: CARLOS CARABALLO MR#: [id number] : 1955 Acct:[id number] Age/Sex: 67 / M ADM Date: 07/02/23 Loc: RAD Attending Dr: Tonio Bell D.P.M. Ordering Physician: Tonio Bell D.P.M. Date of Service: 07/02/23 Procedure(s): XR foot LT min 3V Accession Number(s): [id number] cc: oTnio Bell D.P.M.; Tulio Ruggiero M.D. [place] [address] Patient Name: CARLOS CARABALLO MRN: [id number] date: 1955 Sex: M Assigned Patient Location: [facility] Current Patient Location: RAD Accession/Order Number: [id number] Exam Date: 07/02/2023 08:44 Report Date: 07/02/2023 [...] Signed By: 07/02/23 1038 DD/ 1035 TD/TT: Marketing Programs Manager: ROMEL HealthcareRadiology Study observation (narrative)[facility] HealthcareXR FOOT LT MIN 3VOrdered By: Radiologist Radiology on 15-67-2630[employer] Work Phone: XR LSPINE W_OBLS AND FLEX_EXTon 35-67-0876JK LSPINE W_OBLS AND FLEX_EXTEXAMINATION: XR LSPINE W_OBLS [...] Electronically authenticated by: RACHEAL STEELE Date: 2022-12-05 09:46NoMarymount HospitalCB AUTO DIFFon 11-06-5228ARSH #0.1 103/ulNormal0.0-0.1The [facility]ittman HospitalComment on above:Performed By: #### POCGLUC #### [facility] [address] [place] [address] [address] Juliet WilkesBasophils/100 WBC (Bld)0.7 %Normal0.2-2.0[facility] Comment on above:Performed By: #### POCGLUC #### [facility] [address] [place] [address] [address] Juliet Padgett #0.4 103/ulNormal0.0-0.7The [facility]Rittman HospitalComment on above: Performed By: #### POCGLUC #### [facility] [address] [place] [address] [address] Juliet Huddlestonosinophils/100 WBC (Bld)5.3 %Normal0.9-7.0The [facility] Comment on above:Performed By: #### POCGLUC #### [facility] [address] [place] [address] [address] Juliet Huddlestonrythrocyte distribution width (RBC) [Ratio]14.0 %Jfkbmg35.0-15.0 The [facility]ittman HospitalComment on above:Performed By: #### POCGLUC #### [facility] [address] [place] [address] Dr. Juliet Hillatoshirazt (Bld) [Volume fraction]43.6 %Lzjliz03.0-54.0The [facility]ittman HospitalComment on above:Performed By: #### POCGLUC #### [facility] [address] [place] [address] Dr. Juliet WilkesHemoglobin (Bld) [Mass/Vol]14.9 g/qILjfori59.0-18.0The [facility]ittman HospitalComment on above:Performed By: #### POCGLUC #### [facility] [address] [place] [address] Dr. Juliet Cervantes #0.03 10e3/ulNormal0.00-0.03The [facility]ittman HospitalComment on above:Performed By: #### POCGLUC #### [facility] [address] [place] [address] Dr. Juliet Cervantes %0.4 %Normal0.0-0.5The [facility]ittman HospitalComment on above: Performed By: #### POCGLUC #### [facility] [address] [place] [address] Dr. Juliet Arambula #2.0 103/ulNormal1.2-3.8The [facility]ittman HospitalComment on above:Performed By: #### POCGLUC #### [facility] [address] [place] [address] Dr. Juliet Westhocytes/100 WBC (Bld)29.3 %Klvxkc35.5-60.0The [facility]ittman HospitalComment on above:Performed By: #### POCGLUC #### [facility] [address] [place] [address] Dr. Juliet McdanielUAL DIFF REQNONormalThe [facility]Rittman HospitalComment on above: Performed By: #### POCGLUC #### [facility] [address] [place] [address] Dr. Juliet Yanes (RBC) [Entitic mass]33.4 ioAkhmzx40.9-34.0The [facility]ittman HospitalComment on above:Performed By: #### POCGLUC #### [facility] [address] [place] [address] Dr. Juliet Valderrama (RBC) [Mass/Vol]34.2 g/uXCyuape83.9-35.2The [facility]ittman HospitalComment on above:Performed By: #### POCGLUC #### [facility] [address] [place] [address] Dr. Juliet Penaloza (RBC) [Entitic vol]97.8 fLCritically high80.0-94.0The [facility]ittman HospitalComment on above:Performed By: #### POCGLUC #### [facility] [address] [place] [address] Dr. Juliet Dumont #0.7 103/ulNormal0.3-0.8The [facility]ittman HospitalComment on above:Performed By: #### POCGLUC #### [facility] [address] [place] [address] Dr. Juliet Mcaiasocytes/100 WBC (Bld)9.9 %Normal1.7-12.0The [facility] Comment on above:Performed By: #### POCGLUC #### [facility] [address] [place] [address] Dr. Juliet Del Angel #3.7 103/ulNormal1.4-6.5The [facility]ittman HospitalComment on above:Performed By: #### POCGLUC #### [facility] [address] [place] [address] Dr. Juliet Caballeroophils/100 WBC (Bld)54.4 %Wjhuwn97.0-75.0The [facility]ittman HospitalComment on above:Performed By: #### POCGLUC #### [facility] [address] [place] [address] Dr. Juliet Cespedeslet mean volume (Bld) [Entitic vol]9.0 fLCritically low 9.5-13.5The [facility]ittman HospitalComment on above:Performed By: #### POCGLUC #### [facility] [address] [place] [address] [address] Juliet WilkesPLT211 103/qdAadctv397-432Fnk [facility]itt[facility] HospitalComment on above: Performed By: #### POCGLUC #### [facility] [address] [place] [address] [address] Juliet WilkesRBC4.46 106/ulCritically low4.70-6.10The [facility]ittman HospitalComment on above:Performed By: #### POCGLUC #### [facility] [address] [place] [address] [address] Juliet WilkesWBC6.8 103/ulNormal4.0-11.0The [facility]ittman HospitalComment on above: Performed By: #### POCGLUC #### [facility] [address] [place] [address] Dr. Juliet WilkesPOINT OF CARE GLUCOSEon 68-10-8762Sibfhxn [Mass/Vol]100 mg/dL Liacin84-910Bcj [facility]itt[facility] HospitalComment on above:Performed By: #### POCGLUC #### [facility] [address] [place] [address] Dr. Juliet WilkesGlucose [Mass/Vol]94 mg/yLBzystb45-077GvpKettering Health [facility]al [facility] Center Comment on above:Performed By: #### A1C #### [facility] [address] [place] [address] Dr. Juliet WilkesPROF CHEM 8 (BAS METB)on 40-22-9920Zubzo gap [Moles/Vol]14.0 mmol/LNormalThe [facility]ittman HospitalComment on above:Performed By: #### BMP #### [facility] [address] [place] [address] Dr. Juliet WilkesCalcium [Mass/Vol]9.0 mg/dLNormal8.5-10.1[facility] Comment on above:Performed By: #### BMP #### [facility] [address] [place] [address] Dr. Juliet WilkesChloride [Moles/Vol]107 mmol/APjvsct47-363Whb [facility] Comment on above:Performed By: #### BMP #### [facility] [address] [address] [address] Juliet WilkesCO2 [Moles/Vol]28.7 mmol/FDgonxn02.0-32.0The [facility] Comment on above:Performed By: #### BMP #### [facility] [address] [address] [address] Juliet WilkesCreatinine [Mass/Vol]1.41 mg/dLCritically high0.70-1.30The [facility]itt[facility] HospitalComment on above:Performed By: #### BMP #### [facility] [address] [place] [address] [address] Laureano ChangEGFR-AF NEW ZEALANDER>60Normal>=60The [facility]Rittman HospitalComment on above:Performed By: #### BMP #### [facility] [address] [address] [address] Juliet HuddlestonGFR-NON AF QFARLWAT08 mL/min/1.74x3Zmobhwcckz low>=60The [facility]itt[facility] HospitalComment on above:Performed By: #### BMP #### [facility] [address] [place] [address] [address] Juliet WilkesGlucose [Mass/Vol]95 mg/vMWhtknf71-969KtwKettering Health Behavioral Medical Center Comment on above:Performed By: #### BMP #### [facility] [address] [address] [address] Juliet WilkesPotassium [Moles/Vol]4.7 mmol/LNormal3.5-5.1[facility] Comment on above:Performed By: #### BMP #### [facility] [address] [address] [address] Juliet WilkesSodium [Moles/Vol]145 mmol/NGhdzlw158-215AraKettering Health Behavioral Medical Center Comment on above:Performed By: #### BMP #### [facility] [address] [address] [address] Juliet WilkesUrea nitrogen [Mass/Vol]25.0 mg/dLCritically high7.0-18.0The [facility]ittman HospitalComment on above:Performed By: #### BMP #### [facility] [address] [address] [address] Juliet WilkesUrea nitrogen/Creatinine [Mass ratio]17.7 mg/mgNoMarymount HospitalComment on above:Performed By: #### BMP #### [facility] [address] [address] [address] Juliet Watson Visiton 82-54-4390Qoajau-up [id number] IlyaCarlos Farrar 1955 M Date Provider Department Center 07/31/2022 BENTLEY MENDOZA [facility] Family History Problem Relation Age of Onset Stroke Father Family Status - Relation Status Age at Father Level of Service:30268 MS OFFICE/OUTPATIENT ESTABLISHED MOD MDM 30-39 MIN Reason for Visit and Comments: Hyperlipidemia [182] Hypertension [986712] history of PE [Other]NormalUnChillicothe HospitalCULTURE WOUNDon 76-10-6657ZTXNSCX WOUNDCulture Observations: No growth of anaerobes at 72 hours. Isolate 1 Stenotrophomonas maltophilia Moderate growth of ORGANISM 1 Stenotrophomonas maltophilia ANTIBIOTIC M.I.C RX STATUS Levofloxacin 1 S F Trimethoprim/Sulfamethoxazole <=20 S FNormalThe [facility]ittman HospitalComment on above:Performed By: #### WOUNDCX ####[facility] [address] [place] [address]Dr. Juliet WilkesGLYCOHEMOGLOBIN A1Con 74-21-3154QWU RECOMMENDATIONSEE BELOWNoMarymount HospitalComment on above:Result Comment: ADA RECOMMENDED LIMIT 4.0 - 6.0 ADA THERAPEUTIC TARGET < 7.0 ACTION SUGGESTED > 7.0Performed By: #### A1C #### [facility] [address] [address] [address] Juliet WilkesGlucose [Mass/Vol]111 mg/dLAdena Health SystemComment on above:Performed By: #### A1C #### [facility] [address] [address] [address] Juliet WilkesHbA1c (Bld) [Mass fraction]5.5 %Normal4.5-6.2The [facility]Rittman HospitalComment on above:Performed By: #### A1C #### [facility] [address] [address] [address] Juliet Valdovinos M/2D COMPLETEon 45-84-5875KEYTQAGYRM M/2D COMPLETE Patient: CARLOS CARABALLO Exam Date: 06/28/2022 : 1955 Gender:M Ordering : DR KEN MERCER M.D. Admission #: [id number] Family : Order #: [id number] CLICK HERE TO VIEW EXAM ECHOCARDIOGRAM REPORT [...] by: Amari Mcmanus M.D. on 07/04/2022 at 13:38NoMarymount HospitalURIC ACID SERUMon 88-51-9929Gaxei [Mass/Vol]6.9 mg/dLNormal3.5-7.2[facility] Medical CenterComment on above:Performed By: #### A1C #### [facility] [address] [place] [address] Dr. Juliet WilkesXR KUB 1 VIEWon 22-45-8188SY KUB 1 VIEWEXAMINATION: XR KUB 1 VIEW [...] Electronically authenticated by: RACHEAL STEELE Date: 2022-05-28 07:31NormalThThe [facility] AUTO DIFFon 20-37-5306RGKE #0.1 103/ulNormal0.0-0.1The [facility]ittman HospitalComment on above:Performed By: #### CBC #### [facility] [address] [address] [address] Juliet WilkesBasophils/100 WBC (Bld)0.9 %Normal0.2-2.0[facility] Comment on above:Performed By: #### CBC #### [facility] [address] [place] [address] Dr. Juliet Padgett #0.4 103/ulNormal0.0-0.7The [facility]-Rittman HospitalComment on above: Performed By: #### CBC #### [facility] [address] [place] [address] Dr. Juliet Huddlestonosinophils/100 WBC (Bld)5.2 %Normal0.9-7.0The [facility] Comment on above:Performed By: #### CBC #### [facility] [address] [place] [address] Dr. Juliet Huddlestonrythrocyte distribution width (RBC) [Ratio]13.6 %Zasknq29.0-15.0 [facility] Medical CenterComment on above:Performed By: #### CBC #### [facility] [address] [place] [address] Dr. Juliet WilkesHematocrit (Bld) [Volume fraction]40.5 %Critically low42.0-54.0 The [facility]-Rittman HospitalComment on above:Performed By: #### CBC #### [facility] [address] [address] [address] Juliet WilkesHemoglobin (Bld) [Mass/Vol]13.7 g/dLCritically low14.0-18.0[facility] CenterComment on above:Performed By: #### CBC #### [facility] [address] [place] [address] Dr. Juliet Cervantes #0.02 10e3/ulNormal0.00-0.03The [facility]-Rittman HospitalComment on above:Performed By: #### CBC #### [facility] [address] [place] [address] Dr. Juliet Cervantes %0.3 %Normal0.0-0.5The [facility]-Rittman HospitalComment on above: Performed By: #### CBC #### [facility] [address] [address] [address] Juliet Arambula #1.9 103/ulNormal1.2-3.8The [facility]-Rittman HospitalComment on above:Performed By: #### CBC #### [facility] [address] [place] [address] Dr. Juliet Westhocytes/100 WBC (Bld)27.7 %Uvkoty63.5-60.0The [facility]-Rittman HospitalComment on above:Performed By: #### CBC #### [facility] [address] [place] [address] Dr. Juliet Melendez DIFF REQNONormalThe [facility]-Rittman HospitalComment on above: Performed By: #### CBC #### [facility] [address] [place] [address] Dr. Juliet Yanes (RBC) [Entitic mass]33.3 ycQkvyou63.9-34.0The [facility]-Rittman HospitalComment on above:Performed By: #### CBC #### [facility] [address] [place] [address] Dr. Juliet Valderrama (RBC) [Mass/Vol]33.8 g/cTSoyuzw26.9-35.2The [facility]Rittman HospitalComment on above:Performed By: #### CBC #### [facility] [address] [place] [address] Dr. Juliet Penaloza (RBC) [Entitic vol]98.3 fLCritically high80.0-94.0The [facility]Rittman HospitalComment on above:Performed By: #### CBC #### [facility] [address] [place] [address] Dr. Yilan ChangMONO #0.7 103/ulNormal0.3-0.8The [facility]-Rittman HospitalComment on above:Performed By: #### CBC #### [facility] [address] [place] [address] Dr. Juliet Maciasocytes/100 WBC (Bld)9.9 %Normal1.7-12.0The [facility] Comment on above:Performed By: #### CBC #### [facility] [address] [place] [address] Dr. Juliet Del Angel #3.8 103/ulNormal1.4-6.5The [facility]-Rittman HospitalComment on above:Performed By: #### CBC #### [facility] [address] [place] [address] Dr. Juliet Leoneutrophils/100 WBC (Bld)56.0 %Qpqkav87.0-75.0The [facility]-Rittman HospitalComment on above:Performed By: #### CBC #### [facility] [address] [place] [address] Dr. Juliet WilkesPlatelet mean volume (Bld) [Entitic vol]9.0 fLCritically low 9.5-13.5The [facility]ittman HospitalComment on above:Performed By: #### CBC #### [facility] [address] [place] [address] Dr. Juliet WilkesPLT201 103/uxVkufeb085-776Dih [facility]ittman HospitalComment on above: Performed By: #### CBC #### [facility] [address] [place] [address] Dr. Juliet WilkesRBC4.12 106/ulCritically low4.70-6.10The [facility]ittman HospitalComment on above:Performed By: #### CBC #### [facility] [address] [place] [address] Dr. Juliet WilkesWBC6.7 103/ulNormal4.0-11.0The [facility]-Rittman HospitalComment on above: Performed By: #### CBC #### [facility] [address] [place] [address] Dr. Juliet WilkesGLYCOHEMOGLOBIN A1Con 77-29-6261LCO RECOMMENDATIONSEE BELOWNormnc The [facility]ittman HospitalComment on above:Result Comment: ADA RECOMMENDED LIMIT 4.0 - 6.0 ADA THERAPEUTIC TARGET < 7.0 ACTION SUGGESTED > 7.0Performed By: #### A1C #### [facility] [address] [place] [address] Dr. Juliet WilkesGlucose [Mass/Vol]108 mg/dLNoMarymount HospitalComment on above:Performed By: #### A1C #### [facility] [address] [place] [address] Dr. Juliet WilkesHbA1c (Bld) [Mass fraction]5.4 %Normal4.5-6.2The [facility]ittman HospitalComment on above:Performed By: #### A1C #### [facility] [address] [place] [address] Dr. Juliet WilkesLIPID PROFILEon 53-10-4243MTUG-HDL RATIO NORMSEE BELOWAdena Health SystemComment on above:Result Comment: 3.3 - 4.4 LOW RISK 4.4 - 7.1 AVERAGE RISK 7.1 - 11.0 MODERATE RISK >11.0 HIGH RISKPerformed By: #### LIPID, CMP #### [facility] [address] [place] [address] Dr. Juliet Nguyenesterol [Mass/Vol]154 mg/dLNormal<=200The [facility] Comment on above:Performed By: #### LIPID, CMP #### [facility] [address] [place] [address] Dr. Juliet Nguyenesterol in HDL [Mass/Vol]29 mg/dLCritically dry61-08Qor [facility] HospitalComment on above:Performed By: #### LIPID, CMP #### [facility] [address] [place] [address] Dr. Juliet Nguyenesterol in LDL [Mass/Vol]64.2 mg/dLNoMarymount HospitalComment on above:Performed By: #### LIPID, CMP #### [facility] [address] [place] [address] Dr. Yilan ChangCholesterol.total/Cholesterol in HDL [Mass ratio]5.3 {ratio} NormalThe [facility]-Rittman HospitalComment on above:Performed By: #### LIPID, CMP #### [facility] [address] [place] [address] Dr. Juliet Kenney NORMAL> or = 60 mg/dl - LOW CARDIOVASCULAR RISK <40 mg/dl - HIGH CARDIOVASCULAR RISKAdena Health SystemComment on above:Performed By: #### LIPID, CMP #### [facility] [address] [place] [address] Dr. Juliet WilkesLDL CALC NORMALSEE BELOWAdena Health SystemComment on above:Result Comment: <100 mg/dl OPTIMAL 100 - 129 mg/dl NEAR OR ABOVE OPTIMAL 130 - 159 mg/dl BORDERLINE HIGH 160 - 189 mg/dl HIGH >190 mg/dl VERY HIGH Performed By: #### LIPID, CMP #### [facility] [address] [place] [address] Dr. Juliet WilkesTriglyceride [Mass/Vol]304 mg/dLCritically high<=150The [facility] HospitalCommunson healthcare [facility] on above:Performed By: #### LIPID, CMP #### [facility] [address] [place] [address] Dr. Juliet WilkesVLDL CALC60.8 mg/dLNoMarymount HospitalCommunson healthcare [facility]istee hospital on above: Performed By: #### LIPID, CMP #### [facility] [address] [place] [address] Dr. Juliet WilkesPROF 14(COMP METB)on 36-45-8990Akslbzv [Mass/Vol]3.7 g/dLNormal 3.4-5.0[facility] Medical CenterComment on above:Performed By: #### LIPID, CMP #### [facility] [address] [place] [address] Dr. Juliet WilkesAlbumin/Globulin [Mass ratio]1.1 {ratio}NormalThe [facility]ittman HospitalComment on above:Performed By: #### LIPID, CMP #### [facility] [address] [place] [address] Dr. Juliet Caro [Catalytic activity/Vol]87 U/XLrljfd03-943Xak [facility] HospitalComment on above:Performed By: #### LIPID, CMP #### [facility] [address] [address] [address] Juliet Benavidez [Catalytic activity/Vol]52 U/BKkfjtl35-37Wkq [facility] HospitalComment on above:Performed By: #### LIPID, CMP #### [facility] [address] [address] [address] Juliet Buschon gap [Moles/Vol]11.5 mmol/LNormalKettering Health Behavioral Medical Center Comment on above:Performed By: #### LIPID, CMP #### [facility] [address] [address] [address] Juliet Holloway [Catalytic activity/Vol]27 U/NIsxhww45-04Vlh [facility] HospitalComment on above:Performed By: #### LIPID, CMP #### [facility] [address] [place] [address] Dr. Juliet WilkesBilirubin [Mass/Vol]0.4 mg/dLNormal0.2-1.0[facility] Comment on above:Performed By: #### LIPID, CMP #### [facility] [address] [place] [address] Dr. Juliet WilkesCalcium [Mass/Vol]8.7 mg/dLNormal8.5-10.1[facility] Comment on above:Performed By: #### LIPID, CMP #### [facility] [address] [place] [address] Dr. Juliet WilkesChloride [Moles/Vol]106 mmol/KKbntri09-607KsbKettering Health Behavioral Medical Center Comment on above:Performed By: #### LIPID, CMP #### [facility] [address] [place] [address] Dr. Juliet WilkesCO2 [Moles/Vol]28.2 mmol/UTcazvb59.0-32.0The [facility] Comment on above:Performed By: #### LIPID, CMP #### [facility] [address] [place] [address] Dr. Juliet WilkesCreatinine [Mass/Vol]1.21 mg/dLNormal0.70-1.30[facility] Medical CenterComment on above:Performed By: #### LIPID, CMP #### [facility] [address] [place] [address] Dr. Juliet HuddlestonGFR-AF NEW ZEALANDER>60Normal>=60The [facility]ittman HospitalComment on above:Performed By: #### LIPID, CMP #### [facility] [address] [place] [address] Dr. Juliet Mcclure-NON AF NEW ZEALANDER=60Normal>=60[facility] Medical CenterComment on above:Performed By: #### LIPID, CMP #### [facility] [address] [place] [address] Dr. Juliet WilkesGlobulin (S) [Mass/Vol]3.4 g/dLNormalThe [facility] HospitalComment on above:Performed By: #### LIPID, CMP #### [facility] [address] [place] [address] Dr. Juliet WilkesGlucose [Mass/Vol]100 mg/fZLxsubb72-691MrcKettering Health Behavioral Medical Center Comment on above:Performed By: #### LIPID, CMP #### [facility] [address] [place] [address] Dr. Juliet WilkesPotassium [Moles/Vol]4.7 mmol/LNormal3.5-5.1[facility] Comment on above:Performed By: #### LIPID, CMP #### [facility] [address] [place] [address] Dr. Juliet WilkesProtein [Mass/Vol]7.1 g/dLNormal6.4-8.2The [facility] Comment on above:Performed By: #### LIPID, CMP #### [facility] [address] [place] [address] Dr. Juliet WilkesSodium [Moles/Vol]141 mmol/PIlvylr656-724RtvKettering Health Behavioral Medical Center Comment on above:Performed By: #### LIPID, CMP #### [facility] [address] [place] [address] Dr. Juliet WilkesUrea nitrogen [Mass/Vol]23.0 mg/dLCritically high7.0-18.0[facility] Medical CenterComment on above:Performed By: #### LIPID, CMP #### [facility] [address] [place], [place] [address] Dr. Juliet Yee nitrogen/Creatinine [Mass ratio]19.0 mg/mgNormPremier HealthComment on above:Performed By: #### LIPID, CMP #### [facility] [address] [place], [place] [address] Dr. Juliet WilkesVC CONSULT FOLLOWUPon 64-26-3353EY CONSULT FOLLOWUPPatient: CARLOS CARABALLO Exam Date: 04/08/2022 : 1955 Gender:M Ordering : DR RACHEAL STEELE M.D. Admission #: [id number] Family : Order #: [id number] CLICK HERE [...] by: Racheal Steele MD on 04/08/2022 at 11:30[facility] SystemVC EXT VENOUS RT LIMITEDon 63-71-2436YQ EXT VENOUS RT LIMITEDPatient: CARLOS CARABALLO Exam Date: 04/08/2022 : 1955 Gender:M Ordering : DR RACHEAL STEELE M.D. Admission #: [id number] Family : Order #: [id number] CLICK HERE TO VIEW EXAM RADIOLOGY REPORT [...] by: Racheal Steele MD on 04/08/2022 at 11:31[facility] SystemVC INJ FOAM SCLERO W US MLTIon 18-11-2920MX INJ FOAM SCLERO W US MLTIPatient: CARLOS CARABALLO Exam Date: 04/03/2022 : 1955 Gender:M Ordering : DR RACHEAL STEELE M.D. Admission #: [id number] Family : DR NATHALY Ojeda Order #: [id number] CLICK HERE TO VIEW EXAM RADIOLOGY REPORT [...] hours, av (more content not included)...Normal The [facility] HospitalVC CONSULT FOLLOWUPon 05-43-8210CR CONSULT FOLLOWUPPatient: ILYA, CARLOS Marianna Exam Date: 03/25/2022 : 1955 Gender:M Ordering : DR RACHEAL STEELE M.D. Admission #: [id number] Family : Order #: [id number] CLICK HERE TO VIEW EXAM RADIOLOGY REPORT [...] by: Elin Mccartney M.D. on 03/25/2022 at 08:41[facility] SystemVC EXT VENOUS RT LIMITEDon 45-70-7181CP EXT VENOUS RT LIMITEDPatient: CARLOS CARABALLO Exam Date: 03/25/2022 : 1955 Gender:M Ordering : DR RACHEAL STEELE M.D. Admission #: [id number] Family : Order #: [id number] CLICK HERE TO VIEW EXAM RADIOLOGY REPORT [...] by: Elin Mccartney M.D. on 03/25/2022 at 08:39[facility] SystemVC ENDOVENOUS ABL 1ST V RTon 59-81-6685IL ENDOVENOUS ABL 1ST V RT Patient: CARLOS CARABALLO Exam Date: 03/19/2022 : 1955 Gender:M Ordering : DR RACHEAL STEELE M.D. Admission #: [id number] Family : Order #: [id number] CLICK HERE TO VIEW EXAM RADIOLOGY REPORT [...] by: Racheal Steele MD on 03/19/2022 at 08:58[facility] SystemVC CONSULT FOLLOWUPon 41-71-4645XK CONSULT FOLLOWUPPatient: ILYA, CARLOS Marianna Exam Date: 02/18/2022 : 1955 Gender:M Ordering : DR RACHEAL STEELE M.D. Admission #: [id number] Family : Order #: [id number] CLICK HERE TO VIEW EXAM RADIOLOGY REPORT [...] by: Racheal Steele MD on 02/18/2022 at 09:45[facility] SystemVC EXT VENOUS LT LIMITEDon 93-58-6607JH EXT VENOUS LT LIMITEDPatient: ILYA CARLOS Marianna Exam Date: 02/18/2022 : 1955 Gender:M Ordering : DR RACHEAL STEELE M.D. Admission #: [id number] Family : Order #: [id number] CLICK HERE TO VIEW EXAM RADIOLOGY REPORT [...] varicose veins remain off of SSV and proposal writer mid posterior calf. *Exam performed in accordance with [facility] practice guidelines- Peripheral venous ultrasound, October 07, 2009. CONCLUSION: Post ablation occlusion of left leg varicose veins Dictated by: Racheal Steele MD on 02/18/2022 at 09:32 Approved by: Racheal Steele MD on 02/18/2022 at 09:36[facility] SystemVC INJ FOAM SCLERO W US MLTIon 89-44-9384JR INJ FOAM SCLERO W US MLTIPatient: CARLOS CARABALLO Exam Date: 02/13/2022 : 1955 Gender:M Ordering : DR RACHEAL STEELE M.D. Admission #: [id number] Family : Order #: [id number] CLICK HERE TO VIEW EXAM RADIOLOGY REPORT [...] by: Elin Mccartney M.D. on 02/13/2022 at 10:15NKing[facility] Center OhioVC CONSULT FOLLOWUPon 76-08-5264LM CONSULT FOLLOWUPPatient: CARLOS CARABALLO Exam Date: 02/06/2022 : 1955 Gender:M Ordering : DR RACHEAL STEELE M.D. Admission #: [id number] Family : Order #: [id number] CLICK HERE TO VIEW EXAM RADIOLOGY REPORT [...] by: Elin Mccartney M.D. on 02/06/2022 at 09:53[facility] SystemVC EXT VENOUS LT LIMITEDon 16-92-2339UU EXT VENOUS LT LIMITEDPatient: CARLOS CARABALLO Exam Date: 02/06/2022 : 1955 Gender:M Ordering : DR RACHEAL STEELE M.D. Admission #: [id number] Family : Order #: [id number] CLICK HERE TO VIEW EXAM RADIOLOGY REPORT [...] by: Elin Mccartney M.D. on 02/06/2022 at 09:49[facility] Health SystemGLYCOHEMOGLOBIN A1Con 26-80-2325QPS RECOMMENDATIONSEE [facility]tering Health SpringfieldComment on above:Result Comment: ADA RECOMMENDED LIMIT 4.0 - 6.0 ADA THERAPEUTIC TARGET < 7.0 ACTION SUGGESTED > 7.0Performed By: #### A1C #### [facility] [address] [address] [address] Juliet WilkesGlucose [Mass/Vol]108 mg/dLNoMarymount HospitalComment on above:Performed By: #### A1C #### [facility] [address] [address] [address] Juliet WilkesHbA1c (Bld) [Mass fraction]5.4 %Normal4.5-6.2The [facility]ittman HospitalComment on above:Performed By: #### A1C #### [facility] [address] [address] [address] Juliet WilkesPROF 14(COMP METB)on 86-94-0948Mibvbpu [Mass/Vol]4.0 g/dLNormal 3.4-5.0The [facility]itt[facility] HospitalComment on above:Performed By: #### CMP ####[facility] [address] [place], [place] [address]Dr.Juliet Wilkes Albumin/Globulin [Mass ratio]1.2 {ratio}NormalThe [facility]itt[facility] HospitalComment on above:Performed By: #### CMP ####[facility] [address] [place], [place] [address]Dr.Juliet WilkesALP [Catalytic activity/Vol]89 U/LNormal 46-116The [facility]itt[facility] HospitalComment on above:Performed By: #### CMP ####[facility] [address] [place], [place] [address]Dr.Juliet WilkesALT [Catalytic activity/Vol]81 U/LCritically bolc85-22Ttt [facility] HospitalComment on above:Performed By: #### CMP ####[facility] [address] [place], [place] [address]Dr.Juliet WilkesAnion gap [Moles/Vol]13.6 mmol/LNormal The [facility]ittman HospitalComment on above:Performed By: #### CMP ####[facility] [address] [place], [place] [address]Dr.Juliet ChangAST [Catalytic activity/Vol]32 U/ZFteecp81-42Yco [facility] HospitalComment on above: Performed By: #### CMP ####[facility] [address] [place], [place] [address]Dr.Juliet WilkesBilirubin [Mass/Vol]0.5 mg/dLNormal 0.2-1.0The [facility]ittman HospitalComment on above:Performed By: #### CMP ####[facility] [address] [place], [place] [address]Dr.Juliet Wilkes Calcium [Mass/Vol]8.9 mg/dLNormal8.5-10.1The [facility]ittman HospitalComment on above: Performed By: #### CMP ####[facility] [address] [place], [place] [address]Dr.Juliet ChangChloride [Moles/Vol]106 mmol/LNormal 98-107The [facility]ittman HospitalComment on above:Performed By: #### CMP ####[facility] [address] [place], [place] [address]Dr.Yilan ChangCO2 [Moles/Vol]27.1 mmol/QXiahyl62.0-32.0The [facility]-Rittman HospitalComment on above: Performed By: #### CMP ####[facility] [address] [place], [place] [address]Dr.Yilan ChangCreatinine [Mass/Vol]1.46 mg/dL Critically high0.70-1.30The [facility]ittman HospitalComment on above:Performed By: #### CMP ####[facility] [address] [place], [place] [address]Dr.Yilan ChangEGFR-AF OGWLTBII40 mL/min/1.66y7Dhiofmmcgk low>=60The [facility]ittman HospitalComment on above:Performed By: #### CMP ####[facility] [address] [place], [place] [address]Dr.Yilan ChangEGFR-NON AF CDZFYHFH26 mL/min/1.57g3Pvtfdcbqwr low>=60The [facility]itt[facility] HospitalComment on above: Performed By: #### CMP ####[facility] [address] [place], [place] [address]Dr.Yilan ChangGlobulin (S) [Mass/Vol]3.4 g/dLNormalThe [facility] HospitalComment on above:Performed By: #### CMP ####[facility] [address] [place], [place] [address]Dr.Yilan ChangGlucose [Mass/Vol]93 mg/uTKsfnwj27-958Aoz [facility] HospitalComment on above:Performed By: #### CMP ####[facility] [address] [place], [place] [address]Dr.Yilan ChangPotassium [Moles/Vol]4.7 mmol/LNormal3.5-5.1The [facility]ittman HospitalComment on above:Performed By: #### CMP ####[facility] [address] [place], [place] [address]Dr.Yilan ChangProtein [Mass/Vol]7.4 g/dLNormal6.4-8.2The [facility]ittman HospitalComment on above:Performed By: #### CMP ####[facility] [address] [address]Dr.Yilan ChangSodium [Moles/Vol]142 mmol/LFpyhml624-995Dgy [facility] HospitalComment on above:Performed By: #### CMP ####[facility] [address] [address]Dr.Yilan ChangUrea nitrogen [Mass/Vol]25.0 mg/dLCritically high7.0-18.0The [facility]itt[facility] HospitalComment on above:Performed By: #### CMP ####[facility] [address] [address]Dr.Yilan ChangUrea nitrogen/Creatinine [Mass ratio] 17.1 mg/mgNormalThe [facility] HospitalComment on above:Performed By: #### CMP ####[facility] [address] [address]Dr. Juliet ChangVC ENDOVENOUS ABL 1ST V LTon 51-34-2425ZZ ENDOVENOUS ABL 1ST V LT Patient: CARLOS CARABALLO Exam Date: 01/30/2022 : 1955 Gender:M Ordering : DR RACHEAL STEELE M.D. Admission #: [id number] Family : Order #: [id number] CLICK HERE TO VIEW EXAM RADIOLOGY REPORT [...] by: Elin Mccartney M.D. on 01/30/2022 at 12:00[facility] SystemPOINT OF CARE GLUCOSEon 04-70-8792Nofnmvv [Mass/Vol]84 mg/kQDrrgve57-925 The [facility]itt[facility] HospitalComment on above:Performed By: #### POCGLUC #### [facility] [address] [address] [address] Juliet WilkesVC COMP CONSULTATIONon 36-98-2996MF COMP CONSULTATIONPatient: CARLOS CARABALLORusty Exam Date: 01/21/2022 : 1955 Gender:M Ordering : DR RACHEAL STEELE M.D. Admission #: [id number] Family : Order #: [id number] CLICK HERE TO VIEW EXAM RADIOLOGY REPORT [...] for years. The patient is retired from [employer] after working 42 years. The patient denies [...] any additional information, and this was performed [facility]. See separate history and physical for [...] incompetent branch saphenous tributary/varicose veins. Bilateral incompetent proposal writer veins. PHYSICAL EXAM: The right leg demonstrates [...] pulses were present bilaterally. IMPRESSION: 1. Bilateral cajk-mv-mnnzmvqc great saphenous vein and mild right small [...] by: Racheal Steele MD on 01/21/2022 at 11:46[facility] SystemVC VENOUS REFLUX MARIE Ton 16-54-9755VI VENOUS REFLUX MARIE LMTPatient: CARLOS CARABALLO Exam Date: 01/21/2022 : 1955 Gender:M Ordering : DR RACHEAL STEELE M.D. Admission #: [id number] Family : DR NATHALY BOONE . Order #: [id number] CLICK HERE TO VIEW EXAM RADIOLOGY REPORT [...] Compressibility: Normal. Flow: Mild deep venous reflux. 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 Prox/med calf [...] by: Racheal Steele MD on 01/21/2022 at 10:40[facility] POINT OF CARE GLUCOSEon 31-75-9461Ktfctwx [Mass/Vol]87 mg/cDVllylq77-968VmlKettering Health Behavioral Medical CenterComment on above:Performed By: #### POCGLUC ####[facility] [address] [place], [place] [address]Sc. Juliet Wilkes SURGICAL PATHOLOGYon 06-60-5339ZIXJKPAL PATHOLOGYSpecimen #: [id number] Submitting Physician: JULIET WILKES M.D. FINAL DIAGNOSIS [place], [place]; [id number] (12/07/2020) Liver, mass , biopsy (A1, A2, [...] do not hesitate to contact us at [phone] with questions or if additional follow up information becomes available. This case was reviewed in conjunction with the GI pathology fellow, Apoorva Diallo MD. The following stains were performed at the [facility] in order to further characterize [...] in-situ hybridization tests have been determined by [facility]'s Frankie JRusty [facility] [place] ([facility]) in a manner consistent with CLIA requirements. One or more of these tests have not been cleared or approved by the FDA. [facility] is regulated under CLIA as qualified to perform high-complexity testing. These tests are used for clinical purposes. They should not be regarded as investigational or for research. Nicolasa Cheema M.D. (Electronic Signature) SPECIMEN SUBMITTED A: 12 slides [id number] CLINICAL DATA Mass Date of Report: 03/27/2021 Date of Procedure: 03/16/2021 Date of Receipt: 03/15/2021 Submitted by: JULIET WILKES M.D. Location: Diagnostic interpretation performed at [place] [address]. CLIA Number: [id number] [facility] Comment on above:Performed By: #### S #### See report for performing lab information. Vital Signs Date TimeVital SignValuePerforming AkjghhsilLfbhtunu42-14-5329 08:53-0400Body egdzse980 cmTulio Ruggiero MD Work Phone: [facility] HospitalThjzgpmllv37-18-4789 08:53-0400Body mass index (BMI) [Ratio]37.62 kg/m2Tulio Ruggiero MD Work Phone: [facility] HospitalOtyjmjjhsh99-80-4338 08:53-0400Body temperature 97.11 [degF]Tulio Ruggiero MD Work Phone: noPhelps HealthGhyzrrnler70-33-1643 08:53-0400Body lvddro035.9 kgTulio Ruggiero MD Work Phone: noPhelps HealthAziorvkhki77-62-4587 08:53-0400Diastolic blood ukesplpm46 mm[Hg]Tulio Ruggiero MD Work Phone: [facility] HospitalMefnhrizyd62-11-1812 08:53-0400Heart rate84 /min Tulio Ruggiero MD Work Phone: [facility] HospitalIcdihrjgwk40-89-6003 08:53-0400Respiratory rate20 /minTulio Ruggiero MD Work Phone: [facility] HospitalTwjebgklsa46-98-5217 08:53-5559PtU2% (BldA) [Mass fraction]98 %Tulio Ruggiero MD Work Phone: [facility] HospitalIlndnxopyh17-06-6714 08:53-0400Systolic blood fvlxodjr613 mm[Hg]Tulio Ruggiero MD Work Phone: [facility] HospitalFmdefepseo78-67-5279 13:22-0400Body izmahn503 cm Tulio Ruggiero MD Work Phone: [facility] HospitalSodxxlkmfy98-01-4259 13:22-0400Body mass index (BMI) [Ratio]38.26 kg/m2Tulio Ruggiero MD Work Phone: [facility] HospitalJjycfdkbxl25-96-3002 13:22-0400Body temperature 97.11 [degF]Tulio Ruggiero MD Work Phone: [facility] HospitalRtctibtxck94-52-4086 13:22-0400Body yadqpt065.17 kgTulio Ruggiero MD Work Phone: [facility] HospitalLfmtkfvjuk22-89-2277 13:22-0400Diastolic blood kujurwgd40 mm[Hg]Tulio Ruggiero MD Work Phone: [facility] HospitalLgdfmznzae07-16-2114 13:22-0400Heart rate97 /min Tulio Ruggiero MD Work Phone: [facility] HospitalIbofszobba32-96-6875 13:22-0400Respiratory rate18 /minTulio Ruggiero MD Work Phone: [facility] HospitalZjawrsgikl66-81-6527 13:22-1836XnM5% (BldA) [Mass fraction]99 %Tulio Ruggiero MD Work Phone: [facility] HospitalCroxnjrwvp28-28-9287 13:22-0400Systolic blood atzzzhan898 mm[Hg]Tulio Ruggiero MD Work Phone: [facility] HospitalHnwfhcwubt50-00-4252 09:11-0500Body mass index (BMI) [Ratio]37.75 kg/m2Tulio Ruggiero MD Work Phone: [facility] HospitalEkqzprqzbv38-68-2971 09:11-0500Body temperature 98.4 [degF]Tulio Ruggiero MD Work Phone: [facility] HospitalLbuumfzcij89-35-4178 09:11-0500Body eriwil112.36 kgTulio Ruggiero MD Work Phone: [facility] HospitalMhxzszmtyw49-51-9298 09:11-0500Diastolic blood vhzqpyku69 mm[Hg]Tulio Ruggiero MD Work Phone: [facility] HospitalLdwlxzjtwk87-17-0345 09:11-0500Heart rate96 /min Tulio Ruggiero MD Work Phone: [facility] HospitalJyilhqgdcl38-43-0484 09:11-0500Respiratory rate18 /minTulio Ruggiero MD Work Phone: [facility] HospitalHoxgpdwvuv44-16-8210 09:11-7291FpY0% (BldA) [Mass fraction]96 %Tulio Ruggiero MD Work Phone: [facility] HospitalWmyqqgnnjb68-09-2822 09:11-0500Systolic blood yhjssvji475 mm[Hg]Tulio Ruggiero MD Work Phone: [facility] [id number] 08:56-0500Blood Pressure LocationJEFRANKIE ABREU [facility]11-14-2024 08:56-0500Body fpxgazttkpb84.6 [degF]LIZ ABREU [facility]11-14-2024 08:56-0500Diastolic blood lzucjeli28 mm[Hg]LIZ ABREU [facility]11-14-2024 08:56-0500Heart rate79 /minJENNIFER DAVID [facility]11-14-2024 08:56-0500Respiratory rate18 /minJENNIFER DAVID [facility]11-14-2024 08:56-0500Systolic blood tbqxadtu096 mm[Hg]LIZ DAVID [facility]04-23-2024 08:38-0400Blood Pressure LocationJENNIFER DAVID [facility]04-23-2024 08:38-0400Diastolic blood tgpqaovf04 mm[Hg]LIZ DAVID [facility]04-23-2024 08:38-0400Heart rate80 /minJENNIFER DAVID [facility]04-23-2024 08:38-0400Respiratory rate16 /minJENNIFER DAVID [facility]04-23-2024 08:38-0400Systolic blood jgvnbaxh079 mm[Hg]LIZ DAVID [facility]11-21-2023 09:59-0500Blood Pressure LocationJENNIFER DAVID [facility]11-21-2023 09:59-0500Diastolic blood iqwigubn49 mm[Hg]LIZ DAVID [facility]11-21-2023 09:59-0500Heart rate70 /minJENNIFER DAVID [facility]11-21-2023 09:59-0500Respiratory rate16 /minJENNIFER DAVID [facility]11-21-2023 09:59-0500Systolic blood quyxsmnr025 mm[Hg]LIZ DAVID [facility]11-10-2022 09:45-0500Body nwtvai736.96 cmThomas Olexa Other [employer] Other 11-10-2022 09:45-0500Body mass index (BMI) [Ratio] 40.57 kg/q6Rvmbix Olexa Other [employer] Other 11-10-2022 09:45-0500Body aiixkw442.34 kgThomas Olexa Other [employer] Other 01-25-2022 14:15-0500Body vzubut512.96 cmThomas Olexa Other [employer] Other 01-25-2022 14:15-0500Body mass index (BMI) [Ratio] 40.64 kg/z0Vqzgsu Olexa Other noThe [employer] Other 01-25-2022 14:15-0500Body ysldvs900.61 kgThomas Olexa Other [employer] Other 09-30-2021 10:30-0400Body .96 cmDavid Hykes Other [employer] Other 09-30-2021 10:30-0400Body mass index (BMI) [Ratio] 41.75 kg/n8Fqcjzhortensia Daniels Other [facility] Other 09-30-2021 10:30-0400Body jiyqgz572.51 kgDaviezequiel Daniels Other [facility] Other 09-30-2021 10:30-0400Diastolic blood mm[Hg] Racheal Daniels Other [facility] Other 09-30-2021 10:30-0400Systolic blood ilzeikjg414 mm[Hg] Racheal Daniels Other [facility] Other Encounters Encounter DateEncounter TypeCare ProviderFacilityStart: 05-68-1426iowjhdwewc Vika X OrzechFacility:EU BellevueStart: 03-06-2025 End: 22-71-3872DilecmGver Naderer MD Work Phone: [facility] FMComment on above: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)Start: 01-31-2025 End: 70-91-2680Nnmryszwu Result EncounterGeneric External Data ProviderNOMS External Department UnsolicitedStart: 01-31-2025 End: 95-12-6560Txmjxuswz Result EncounterGeneric External Data ProviderNOMS External Department UnsolicitedStart: 01-31-2025 End: 64-77-1448aqaaknuindUVLAS J MATHEWSMercy Jacob HospitalStart: 01-31-2025 End: 16-01-8798Rycplqwdfy hospital visit by physicianMwh Additional [facility] RadiologyComment on above:Aftercare following left knee joint replacement surgeryStart: 01-13-2025 End: 19-49-7466Ounbckpem Result EncounterTulio Ruggiero MD Work Phone: noms External Department UnsolicitedStart: 01-13-2025 End: 17-74-4528Esvvzjcbt Result EncounterTulio Ruggiero MD Work Phone: noms External Department UnsolicitedStart: 01-12-2025 End: 57-43-2171Bvuuqg flowsAracely Ruggiero MD Work Phone: noms CWM FMStart: 01-12-2025 End: 50-84-6584Lpeshu flowsAracely Ruggiero MD Work Phone: noms CWM FMStart: 01-12-2025 End: 04-11-3966Qxigsz outpatient visit 25 minutesTulio Ruggiero MD Work [...] index (BMI) of37.0 to 37.9 in adult ([facility]); Type 2 diabetes mellitus with diabetic chronic kidney disease (HCC); Chronic kidney disease, stage 3a ([facility])Start: 01-12-2025 End: 17-20-9216lulntxwgkfSUZP NADERERNot AvailableStart: 12-31-2024 End: 13-60-2838Ehwjglzbw Result EncounterGeneric External Data ProviderNOMS External Department UnsolicitedStart: 12-31-2024 End: 05-14-9231Ujzdtfckm Result EncounterGeneric External Data ProviderNOMS External Department UnsolicitedStart: 12-06-2024 End: 54-20-6023GrzplbJixm Naderer MD Work Phone: noms CWM FMComment on above:Polyneuropathy due to type 2 diabetes mellitus ([facility])Start: 11-08-2024 End: 63-15-8345CbemvjIffw Naderer MD Work Phone: NOM[facility] CWM FMComment on above:Male hypogonadismStart: 10-19-2024 End: 38-78-4575Loeweb Radha Ruggiero MD Work Phone: noms CWM FMComment on above:Annual physical exam (Primary Dx); Morbid obesity ([facility]); Polyneuropathy due to type 2 diabetes mellitus ([facility]); Type 2 diabetes mellitus with hyperglycemia, without long-term current use of insulin ([facility]); Arthritis, goutyStart: 10-19-2024 End: 04-61-4886Qwocbbg encounter procedureTulio Ruggiero MD Work Phone: [facility] Work Phone: Start: 10-13-2024 End: 71-64-7469Sorass flowsAracely Ruggiero MD Work Phone: noms CWM FMStart: 10-13-2024 End: 60-95-3977Aelraz Thomas Ruggiero MD Work Phone: noms CWM FMStart: 10-13-2024 End: 40-94-3527Vopzpg outpatient visit 15 minutesTulio Ruggiero MD Work Phone: noms CWM FMComment on above:Abscess of abdominal wall (Primary Dx)Start: 10-13-2024 End: 62-65-7922asrtmsgxlvKHHB NADERERNot AvailableStart: 10-04-2024 End: 31-89-6324Uisxseiji Result EncounterGeneric External Data ProviderNOMS External Department UnsolicitedStart: 10-04-2024 End: 96-94-2278Otigntguu Result EncounterGeneric External Data ProviderNOMS External Department UnsolicitedStart: 09-06-2024 End: 39-15-8582Sfkdslewu Result EncounterGeneric External Data ProviderNOMS External Department UnsolicitedStart: 09-06-2024 End: 12-37-0205Kreuediej Result EncounterGeneric External Data ProviderNOMS External Department UnsolicitedStart: 08-24-2024 End: 63-50-8099Ablvcjasy Result EncounterGeneric External Data ProviderNOMS External Department UnsolicitedStart: 08-24-2024 End: 66-04-0452Klhkuvggz Result EncounterGeneric External Data ProviderNOMS External Department UnsolicitedStart: 08-23-2024 End: 82-22-8499Pikjdsgmh Result EncounterGeneric External Data ProviderNOMS External Department UnsolicitedStart: 08-23-2024 End: 10-66-9884Zkqwaydzm Result EncounterGeneric External Data ProviderNOMS External Department UnsolicitedStart: 08-19-2024 End: 20-00-9003Neasqreem Result EncounterGeneric External Data ProviderNOMS External Department UnsolicitedStart: 08-19-2024 End: 74-06-3723Hvnjkgitr Result EncounterGeneric External Data ProviderNOMS External Department UnsolicitedStart: 08-07-2024 End: 55-77-9500AhhhisPdug Naderer MD Work Phone: noms [facility] FMComment on above:Morbid obesity (CMS/HCC); 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/[facility]); Type 2 diabetes mellitus with hyperglycemia, without long-term current use of insulin (CMS/HCC)Start: 08-05-2024 End: 18-19-9041Nzvbmeily Result EncounterGeneric External Data ProviderNOMS External Department UnsolicitedStart: 08-05-2024 End: 67-07-9002Vaoisrfsu Result EncounterGeneric External Data ProviderNOMS External Department UnsolicitedStart: 07-28-2024 End: 22-65-3922Gffgpe Radha Ruggiero MD Work Phone: noms [facility] FMComment on above:Type 2 diabetes mellitus with hyperglycemia, without long-term current use of insulin (CMS/HCC) (Primary Dx); Dyslipidemia (CMS/HCC); Class 2 severe obesity due to excess calories with serious comorbidity and body mass index (BMI) of37.0 to 37.9 in adult (CMS/HCC); Encounter for long-term current use of medication; Screening PSA (prostate specific antigen)Start: 07-26-2024 End: 48-78-6189fpfdsuwjdmNtwsbBlake Valencia DOFacility:[facility] Start: 07-23-2024 End: 78-58-6651cizftesjtaUvovg Jay Mathews DOFacility:[facility] Start: 07-20-2024 End: 27-51-8676Jcbgulkld Result EncounterGeneric External Data ProviderNOMS External Department UnsolicitedStart: 07-20-2024 End: 32-29-8528Vrjkphvvx Result EncounterGeneric External Data ProviderNOMS External Department UnsolicitedStart: 07-15-2024 End: 06-79-8911Ydtpiu flowsAracely Ruggiero MD Work Phone: noms CWM FMStart: 07-15-2024 End: 69-43-0317Juwjlr Thomas Ruggiero MD Work Phone: noms [facility] FMStart: 07-15-2024 End: 15-21-6750Frenuan encounter procedureTulio Ruggiero MD Work Phone: [facility] Work Phone: Start: 07-15-2024 End: 89-83-1829Vkrmdpkj preventive med est patient 65yrs& olderTulio Ruggiero MD Work Phone: noms [facility] FMComment on above:Annual physical exam (Primary Dx); Encounter for preoperative assessment; Type 2 diabetes mellitus with hyperglycemia, without long-term current use of insulin ([facility]); Arthritis, gouty; Polyneuropathy due to type 2 diabetes mellitus ([facility]); Class 2 severe obesity due to excess calories with serious comorbidity and body mass index (BMI) of37.0 to 37.9 in adult ([facility]); Dyslipidemia ([facility]/HCC)Start: 07-15-2024 End: 36-76-2788Zjjzsozwxkdl Sal Ruggiero MD Work Phone: noms HealthcareStart: 07-15-2024 End: 75-08-8786nvpzpkqevkVYBK NADERERNot AvailableStart: 06-28-2024 End: 81-13-3307Fwclasomk Result EncounterGeneric External Data ProviderNOMS External Department UnsolicitedStart: 06-28-2024 End: 00-68-2391Zdbcreafg Result EncounterGeneric External Data ProviderNOMS External Department UnsolicitedStart: 06-23-2024 End: 03-82-4719Otitsngrz Result EncounterGeneric External Data ProviderNOMS External Department UnsolicitedStart: 06-23-2024 End: 30-30-7483Gzjewymqp Result EncounterGeneric External Data ProviderNOMS External Department UnsolicitedStart: 05-27-2024 End: 64-34-0933bktwcgglhyKOCMSREV E PERRYFacility:EU [place]vueStart: 05-27-2024 End: 02-08-9040Xathsfe encounter procedureJENNIFER E DAVID [facility] start: 05-18-2024 End: 61-71-8493Kqlxzikid Result EncounterGeneric External Data ProviderNOMS External Department UnsolicitedStart: 05-18-2024 End: 67-49-2567Mgplecosb Result EncounterGeneric External Data ProviderNOMS External Department UnsolicitedStart: 04-08-2024 End: 07-16-6317TqmiytUfsu Naderer MD Work Phone: noms CWM FMComment on above:Polyneuropathy due to type 2 diabetes mellitus ([facility])Start: 04-06-2024 End: 83-62-6225VleoduBmam Naderer MD Work Phone: noms CWM FMComment on above:Male hypogonadismStart: 02-12-2024 End: 73-17-9482Aafmhddlz Result EncounterGeneric External Data ProviderNOMS External Department UnsolicitedStart: 02-12-2024 End: 54-15-0538Rnqzohnya Result EncounterGeneric External Data ProviderNOMS External Department UnsolicitedStart: 11-04-2023 End: 29-38-1821Scafwoa encounter procedureJENNIFER E DAVID ExBl[employer] [facility] start: 10-09-2023 End: 79-17-3086Kjajagtsz Result EncounterGeneric External Data ProviderNOMS External Department UnsolicitedStart: 10-09-2023 End: 84-69-1252Khmuazaej Result EncounterGeneric External Data ProviderNOMS External Department UnsolicitedStart: 23-44-8877Srtkabq encounter procedureTulio Ruggiero MD Work Phone: NOMS HealthcareStart: 07-05-2023 End: 61-12-0571Rzcszepyu Result EncounterGeneric External Data ProviderNOMS External Department UnsolicitedStart: 07-05-2023 End: 58-65-8803Tctghwnzo Result EncounterGeneric External Data ProviderNOMS External Department UnsolicitedStart: 07-02-2023 End: 45-53-1007Cbbujauow Result EncounterGeneric External Data ProviderNOMS External Department UnsolicitedStart: 07-02-2023 End: 18-61-3610Ymcecjtxb Result EncounterGeneric External Data ProviderNOMS External Department UnsolicitedStart: 06-03-2023 End: 20-93-7090Kktudal encounter procedureJENNIFER E DAVID [facility] start: 12-05-2022 End: 58-70-9641lkmctwztqoGQ KIM E KNIGHT .Facility:L9Myaqq: 12-03-2022 End: 60-58-9933nyajdasjxzCY KIM E KNIGHT .Facility:P3Zoipw: 11-29-2022 End: 42-34-8871cowgyhqajbWFDINJRBSLIT LAKSHMIPATHY .Facility:V9Nbpsw: 11-12-2022 End: 47-92-6170imnibaxoxvTH KIM E KNIGHT .Facility:G0Viqal: 11-05-2022 End: 33-16-0100mzotsxihpnPH KIM E KNIGHT .Facility:P2Mknaf: 10-28-2022 End: 99-00-8656filwmgxvnaZQ KIM E KNIGHT .Facility:J4Jnhrk: 10-21-2022 End: 79-85-9652pcknxkyjdjZO KIM E KNIGHT .Facility:T6Yckxq: 24-24-6578Vdlndiyft for preprocedural cardiovascular examinationPETER D OhioHealthtart: 35-60-5364Bmneicdwu for preprocedural laboratory examinationPETER D OhioHealthtart: 35-80-0394oiqfoadmzqSV KIM E KNIGHT . Facility:M2Ogyhq: 10-10-2022 End: 27-39-0081aicdavbodkXG KIM E KNIGHT .Facility:N0Zpeiy: 10-10-2022 End: 11-43-0775Xkokbhwzg for preprocedural cardiovascular examinationDR FELISA BERRIOS .Facility:P1Nkbgw: 09-24-2022 End: 73-46-2563pkqgdnluhiEE KIM E KNIGHT .Facility:M8Dumug: 09-20-2022 End: 05-95-4454encfciphvyDO KIM E KNIGHT .Facility:J3Tnuyd: 09-10-2022 End: 99-32-6420pukectojhxAO KIM E KNIGHT .Facility:C5Hftok: 08-26-2022 End: 55-87-0390zroyiechqqFK KIM E KNIGHT .Facility:I5Llerc: 08-06-2022 End: 01-28-4593gjxakenikrMAYDY D [facility] Centerc[facility]:H5Uuoyj: 07-31-2022 End: 62-51-2622lsjpgoruuoGRYRBJUKettering Health Greene Memorialtart: 07-31-2022 End: 45-09-2717ynmfqneaibVT NATHALY BOONE .Facility:P6Ncfsb: 07-25-2022 End: 62-26-8828qwgsnumphkKJIB SOLIS .Facility:E1Wffle: 07-24-2022 End: 68-32-6717mpfzvoljlpRBVCJ D [facility] Centercility:I7Eblgj: 07-23-2022 End: 84-10-9567jqysxhrzvnBO KIM E KNIGHT .Facility:J8Qvacz: 07-22-2022 End: 15-79-0915umhhijjgbvZY KIM E KNIGHT .Facility:R4Kimep: 41-27-1547nttmvkrbxt DR NATHALY BOONE .Facility:H9Ytpcz: 06-28-2022 End: 29-27-4408ddtzvzuwrhTE EHAB ELTAHAWYFacility:N5Sgkaz: 06-10-2022 End: 07-64-4543hmnwfapuptSF FELISA BERRIOS .Facility:N2Xutti: 05-27-2022 End: 10-41-3593wyorlurxmyLB RACHEAL Ayala WESTFacility:D2Lsgho: 05-23-2022 End: 47-61-9038sjwvirargaYabrml Olexa Other [facility] [place] Other Start: 14-14-0968Ydnppi outpatient visit 15 minutes Alejandra CainFPG [facility] OrthopedicsStart: 05-03-2022 End: 74-58-3909tloabnktwzKC FELISA BERRIOS .Facility:L5Bcbzs: 04-23-2022 End: 31-84-2792nsecvozhxlYR NATHALY BOONE .Facility:R5Syfhm: 04-08-2022 End: 57-56-1008tjkkmawwxtEX RACHEAL Ayala WESTFacility:S8Ugvir: 04-04-2022 End: 64-45-9936blgvozcmgiMLUK ALEX .Facility:D2Dakqz: 04-03-2022 End: 39-58-6700qjhwgqapsrLF RACHEAL Ayala WESTFacility:G6Fbhzo: 03-25-2022 End: 44-28-1143zhzhczykaqZF RACHEAL V WESTFacility:J9Ffppl: 03-19-2022 End: 66-29-9204qlrzsgbejpFE RACHEAL V WESTFacility:P2Tojtn: 02-18-2022 End: 43-96-2788ktndjsujegJR RACHEAL Ayala WESTFacility:K4Xwnue: 53-44-1502xunuqraordKG FELISA BERRIOS .Facility:P4Irued: 02-14-2022 End: 80-02-8557nnjyeseqreKO FELISA BERRIOS .Facility:J9Gvrpl: 02-13-2022 End: 75-40-3723vofnvygdqtYT FELISA BERRIOS .Facility:Q3Znpfo: 02-06-2022 End: 52-29-6188gnwsewqvuxBK FELISA BERRIOS .Facility:A4Rnphl: 02-05-2022 End: 15-35-4447qitrrpmcbwZZ FELISA BERRIOS .Facility:K7Nymtr: 01-30-2022 End: 75-35-3435kccyezhsqgTT FELISA Ann BERRIOS .Facility:E4Uaceh: 01-22-2022 End: 08-07-7516rbkhsctiukKP FELISA Ann BERRIOS .Facility:L3Szlco: 01-21-2022 End: 03-55-4761gvyiiyktwiEU KIM Ann BERRIOS .Facility:C6Mnuzn: 01-08-2022 End: 61-10-1502vmpbpkypooWT KIM Ann BERRIOS .Facility:M5Jnlzx: 08-07-2021 End: 02-60-8535hxzetydanpVbhubf Olexa Other [facility] [place] Other Start: 36-20-6324Huukgs outpatient visit 15 minutes Alejandra OlexaFPG [facility] BellevueStart: 10-08-0957Ndpoyg outpatient visit 15 minutesDavid HykesFPG Gastroenterology Procedures DateProcedureProcedure DetailPerforming ClinicianStart: 34-85-4211DZ KNEE LEFT (3 VIEWS)Generic External Data ProviderStart: 52-54-5357Fuksilwnbq examination knee 3 viewsDaniele Valencia DO Work Phone: Start: 89-33-1716ETT MICROALB CREAT RATIO RANDOMMarmilan Ruggiero MD Work Phone: Start: 47-89-3611HTUV PSA, DIAGNOSTICGeneric External Data ProviderStart: 31-67-7291Ruhdqyegsd examination knee 1/2 viewsGeneric External Data ProviderStart: 57-28-4154Lqmkivrkuw examination knee 1/2 views Generic External Data ProviderStart: 11-86-5399GWV BASIC METABOLIC PANELGeneric External Data ProviderStart: 98-44-3211Tvljuzwomz exam knee complete 4/more viewsGeneric External Data ProviderStart: 09-82-5589QYP CBC WITH AUTO DIFF Generic External Data ProviderStart: 96-06-3812Wbixopyy screenGeneric Provider Start: 11-11-4500JOE TYPE AND SCREENGeneric External Data ProviderStart: 39-85-1987Ycwdsvzo screenGeneric ProviderStart: 46-10-9001RBY TYPE AND SCREEN Generic External Data ProviderStart: 63-35-4111HV CHEST 2VGeneric External Data ProviderStart: 97-68-5915PKI MISCELLANEOUS TESTGeneric External Data Provider Start: 53-94-9534YOM UA (CLEAN/CATCH) MANUFACTURING ENGINEER AUTOMOTIVE/MICRO IF IND.Generic External Data ProviderStart: 35-33-7939HPR CBC WITH AUTO DIFFGeneric External Data Provider Start: 07-20-2024 End: 84-08-7615ILW 12-LEADGeneric External Data ProviderStart: 48-30-6290DGOZ SCREENING CULTUREGeneric External Data ProviderStart: 48-52-0238ZM ECHO DOPPLER COMPLETEGeneric External Data ProviderStart: 30-44-1271Xqccdpijti exam knee complete 4/more viewsGeneric External Data ProviderStart: 98-91-6048HG ABDOMEN 1VGeneric External Data ProviderStart: 43-68-2500AC FOOT LT MIN 3VGeneric External Data ProviderStart: 38-40-0387DN FOOT LT MIN 3VGeneric External Data ProviderStart: 62-34-2086KG FOOT LT WO CONGeneric External Data ProviderStart: 87-29-7904XN FOOT LT MIN 3VGeneric External Data ProviderStart: 33-62-5453NXT screeningDR RACHEAL Monk on above:Performed By: #### PSAD #### [facility] [address] [place] [address] Dr. Juliet Guidoart: 36-21-7318EF guided biopsyJENNIFER DAVID Comment on above:LIVER. NO SEDATION.Start: 07-15-2016 ColonoscopyTulio Ruggiero MD Work Phone: Arthroscopy of kneeJENNIFER DAVID Bilateral cataracts (disorder)LIZ DAVID H/O: vasectomyJENNIFER DAVID Titanium (substance)LIZ DVAID Comment on above:ToeTonsillectomyJENNIFER DAVID Plan of Treatment DateCare ActivityDetailAuthorStart: 53-09-8066Itshtrcrtaz Syncytial Virus (RSV) or age 60 yrs+ (1 - 1-dose 75+ series)Respiratory Syncytial Virus (RSV) or age 60 yrs+ (1 - 1-dose 75+ series)[facility] HealthStart: 40-93-2540Nthaixxcf for malignant neoplasm of colonNOPR HealthcareStart: 65-20-1097Kxghi screening for proteinDiabetes: Urine Protein ScreeningNOPR HealthcareStart: 08-16-2025 End: 18-24-9388Wxvyaci encounter hdojgecke55/03/2026 9:00 AM EST Office Visit [facility] [address] [place] [phone] Tulio Ruggiero MD [address] [place] [phone] N[facility] FMStart: 55-50-5878Xwsxayvza vaccinationInfluenza Vaccine (#1)[facility] HealthcareStart: 88-87-2435Jkweuknb screeningDiabetes: Retinopathy Screening [facility] HealthcareStart: 94-80-5980Psynctxsc vaccinationFlu vaccine (#1)[facility] HealthStart: 85-27-5044Xvdjv screening for proteinDiabetes: Urine Protein ScreeningTwo Rivers Psychiatric HospitalStart: 01-12-2025 End: 80-47-2344Hlpnqtvrgf A1c/Hemoglobin.total in BloodHemoglobin A1c Lab Routine Type 2 diabetes mellitus with hyperglycemia, without long-term current use of insulin (HCC) Expected: 01/12/2025 (Approximate), Expires: 01/12/2026[facility] HealthcareComment on above:Expected: 01/12/2025 (Approximate), Expires: 01/12/2026Start: 01-12-2025 End: 42-16-0011Bwrplrsabwld/Creatinine panel in random UrineMicroalbumin / creatinine, urine ratio Lab Routine Type 2 diabetes mellitus with hyperglycemia, without long-term current use of insulin (HCC) Expected: 01/12/2025 (Approximate), Expires: 01/12/2026[facility] Work Phone: Comment on above:Expected: 01/12/2025 (Approximate), Expires: 01/12/2026Start: 01-12-2025 End: 65-29-2360Lpnpicq encounter procedureNO [facility] FMComment on above:Arrived Start: 10-19-2024 End: 81-26-7634Tyehdsa antibody IgGRubeola antibody IgG Lab Routine Annual physical exam Expected: 10/19/2024 (Approximate), Expires: 10/19/2025[facility] Work Phone: Comment on above:Expected: 10/19/2024 (Approximate), Expires: 10/19/2025Start: 10-13-2024 End: 06-29-6056Oyzkhfj encounter osshewdfp79/02/2025 1:15 PM EDT Office Visit [facility] [address] [place] [phone] Tulio Ruggiero MD [address] [place] [address] ArrivedNOINTEGRIS [facility] FMComment on above:ArrivedStart: 95-31-4022NBFOS-19 Vaccine ( season)COVID-19 Vaccine ( season)[facility] HealthStart: 08-05-2024 End: 65-54-0586Usxrx metabolic 1998 panel - Serum or PlasmaBasic metabolic panel Lab Routine Encounter for long-term current use of medication Expected: 2024 (Approximate), Expires: 08/05/2025[facility] HealthcareComment on above:Expected: 08/05/2024 (Approximate), Expires: 08/05/2025Start: 08-05-2024 End: 57-08-7133YHE W Auto Differential panel - BloodCBC and differential Lab Routine Encounter for long-term current use of medication Expected: 08/05/2024 (Approximate), Expires: 08/05/2025[facility] HealthcareComment on above:Expected: 08/05/2024 (Approximate), Expires: 08/05/2025Start: 08-05-2024 End: 75-05-2435Sqradefdhk A1c/Hemoglobin.total in BloodHemoglobin A1c Lab Routine Type 2 diabetes mellitus with hyperglycemia, without long-term current use of insulin ([facility]) Expected: 08/05/2024 (Approximate), Expires: 08/05/2025 [facility] Work Phone: Comment on above:Expected: 08/05/2024 (Approximate), Expires: 08/05/2025Start: 08-05-2024 End: 81-42-4589Mcubqla function 2000 panel - Serum or PlasmaHepatic function panel Lab Routine Encounter for long-term current use of medication Expected: 08/05/2024 (Approximate), Expires: 08/05/2025[facility] HealthcareComment on above: Expected: 08/05/2024 (Approximate), Expires: 08/05/2025Start: 08-05-2024 End: 43-97-3251Tqbkm 1996 panel - Serum or PlasmaLipid panel Lab Routine Dyslipidemia ([facility]) Expected: 08/05/2024 (Approximate), Expires: 08/05/2025 [facility] HealthcareComment on above:Expected: 08/05/2024 (Approximate), Expires: 08/05/2025Start: 08-05-2024 End: 33-08-6532Mkatgzbk specific Ag [Mass/volume] in Serum or PlasmaPSA Lab Routine Screening PSA (prostate specific antigen) Expected: 08/05/2024 (Approximate), Expires: 08/05/2025[facility] HealthcareComment on above:Expected: 08/05/2024 (Approximate), Expires: 08/05/2025Start: 08-05-2024 End: 76-49-3005Rqomhfcrvgk [Units/volume] in Serum or PlasmaTSH Lab Routine Class 2 severe obesity due to excess calories with serious comorbidity and body mass index (BMI) of 37.0 to 37.9 in adult ([facility]) Expected: 08/05/2024 (Approximate), Expires: 08/05/2025[facility] HealthcareComment on above:Expected: 08/05/2024 (Approximate), Expires: 08/05/2025Start: [id number] A1c measurementDiabetes: Hemoglobin [id number] HealthcareStart: 07-15-2024 End: 69-08-4025Rhuwz metabolic 1998 panel - Serum or PlasmaBasic metabolic panel Lab Routine Annual physical exam Expected: 07/15/2024 (Approximate), Expires: 07/15/2025[facility] HealthcareComment on above:Expected: 07/15/2024 (Approximate), Expires: 07/15/2025Start: 07-15-2024 End: [id number] W Auto Differential panel - BloodCBC and differential Lab Routine Annual physical exam Expected: 07/15/2024 (Approximate), Expires: 0 07/15/2025[facility] HealthcareComment on above:Expected: 07/15/2024 (Approximate), Expires: 07/15/2025Start: 07-15-2024 End: 56-83-6511Avsjwftwln A1c/Hemoglobin.total in BloodHemoglobin A1c Lab Routine Annual physical exam Expected: 07/15/2024 (Approximate), Expires: 07/15/2025[facility] Work Phone: Comment on above:Expected: 07/15/2024 (Approximate), Expires: 07/15/2025Start: 07-15-2024 End: 04-01-6287Dvpmrlc function 2000 panel - Serum or PlasmaHepatic function panel Lab Routine Annual physical exam Expected: 07/15/2024 (Approximate), Expires: 07/15/2025[facility] HealthcareComment on above:Expected: 07/15/2024 (Approximate), Expires: 07/15/2025Start: 07-15-2024 End: 93-12-5036Jcmcz 1996 panel - Serum or PlasmaLipid panel Lab Routine Annual physical exam Expected: 07/15/2024 (Approximate), Expires: 07/15/2025[facility] HealthcareComment on above:Expected: 07/15/2024 (Approximate), Expires: 07/15/2025Start: 07-15-2024 End: 72-85-3696Gdtrpnnv specific Ag [Mass/volume] in Serum or PlasmaPSA Lab Routine Annual physical exam Expected: 07/15/2024 (Approximate), Expires: 07/15/2025[facility] HealthcareComment on above:Expected: 07/15/2024 (Approximate), Expires: 07/15/2025Start: 07-15-2024 End: 29-86-7785Jwqxebgkaoi [Units/volume] in Serum or PlasmaTSH Lab Routine Annual physical exam Expected: 07/15/2024 (Approximate), Expires: 07/15/2025[facility] HealthcareComment on above:Expected: 07/15/2024 (Approximate), Expires: 07/15/2025Start: 07-15-2024 End: 11-15-0607Gnddkfo encounter procedureNOMS CWM FMComment on above:Arrived Start: 62-86-7001Hphuabhac vaccinationInfluenza Vaccine (#1)[facility] Start: 49-33-8354Wctusfksxr A1c measurementDiabetes: Hemoglobin U8XWRIT HealthcareStart: 89-00-2672Xbkizvnphsjb 50+ years Vaccine (2 of 2 - PCV) Pneumococcal 50+ years Vaccine (2 of 2 - PCV)[facility] HealthStart: 89-91-6131Nccwdunnhkmn Vaccine: 65+ Years (2 of 2 - PCV)Pneumococcal Vaccine: 65+ Years (2 of 2 - PCV)[facility] HealthcareStart: 87-62-1811Flslrseh vaccine (1 of 2)Shingles vaccine (1 of 2)[facility] HealthStart: 43-45-4065Lmncfelip for malignant neoplasm of colonLifepoint HealthStart: 16-66-5891Xgmvi panelLipidsLifepoint HealthStart: 91-90-7471ETdI/Tdap/Td vaccine (1 - Tdap)DTaP/Tdap/Td vaccine (1 - Tdap)[facility] HealthStart: 1975 Urine screening for proteinDiabetes: Urine Protein ScreeningTwo [facility] Start: 90-93-8965Idzsbfiwk C screeningHepatitis C screenLifepoint Health Start: 58-90-9227Tuamklgckb ScreenDepression [facility] Start: 90-80-8891Mucnatmbs for malignant neoplasm of colonRIVERTON [facility]OS[facility]ITAL [facility] Immunizations Immunization DateImmunizationNotesCare AdqdihgkYvgfdzkq06-88-2067rnoljyvgb virus vaccine, unspecified formulationJENNIFER DAVID [facility]10-08-2023SARS-CoV-2 mRNA (tozinameran 5y-11y) vaccineJENNIFER DAVID 720-8449Ntfqpa-DgrpdAultman [facility] Hospital on above: Result Comment: covid 19 mRNA (cvs)67-71-3486qipzkkijq virus vaccine, unspecified formulationTulio Ruggiero MD Work Phone: [facility] HospitalLknnmqqktt94-93-6686cfcniglad virus vaccine, unspecified formulationJENNIFER DAVID [facility]09-10-2022SARS-CoV-2 (COVID-19) mRNAMUL.ORD![id number] DAVID [facility]04-12-2022SARS-CoV-2 mRNA (ygdnqahhchw-bera-fykkswk) vaccineJENNIFER DAVID [facility]11-14-2021pneumococcal polysaccharide vaccine, 23 valentJENNIFER DAVID [facility]10-24-2021SARS-CoV-2 (COVID-19) mRNA BNT-162b2 vaxJENNIFER DAVID [facility] on above:Result Comment: 2022-05-29: IYI0917-01-4518eofgtfdrs virus vaccine, unspecified formulationJENNIFER DAVID [facility]03-08-2021SARS-CoV-2 (COVID-19) mRNA BNT-162b2 vaxJENNIFER DAVID General Surgery Onvplqef00-18-5637qugwgxccl virus vaccine, unspecified formulationJENNIFER DAVID General Surgery Yvrbahqz32-88-0256dgvkwjhep virus vaccine, unspecified formulationJENNIFER DAVID [facility]10-08-2018influenza virus vaccine, unspecified formulationJENNIFER DAVID [facility]09-11-2018influenza virus vaccine, unspecified formulationJENNIFER DAVID [facility]10-19-2013influenza virus vaccine, unspecified formulationJENNIFER DAVID [facility] Payers DatePayer CategoryPayerPolicy [id number] Member Subscriber Plan / Payer (Effective 2022-Present) Name: Carlos Caraballo Member ID: [id number] Relation to Subscriber: Spouse Name: Kanwal Caraballo Subscriber ID: [id number] Date of : 1962 Address: [address] [place], [place] [address] [address] Payer ID: Not on file Type: Not on file Address: [facility] [id number] [place] [address] [id number] 2023Medicare2023 [id number]3.693.2.7.3.605359.315 [id number] [id number] 2.16.840.1.849187.19 [id number] [id number] 2.16.840.1.348091.3.57[id number] 2.16.840.1.876997.3.579.2.19904-56-2116Xuyyrrn2326841 2.16.840.1.996465.3.579.2.69129-95-0607Lsuuyrl4096088 2.16.840.1.450668.3.579.2.79217-11-4496Lbjakvs1557521 2.16.840.1.517719.3.57[id number] 2.16.840.1.266320.3.579.2.72628-27-5411Eyivepf5499386 2.16.840.1.735368.3.579.2.33245-62-8027Eizxnls4097651 2.16.840.1.424279.3.579.2.16084-54-0079Xlqnuon7863706 2.16.840.1.824105.3.579.2.09914-97-9434Dwqwyof2319983 2.16.840.1.455683.3.579.2.04951-46-1242Dbrxoou5624253 2.16.840.1.101226.3.579.2.94496-04-1562Cpqlzfr9912675 2.16.840.1.207844.3.579.2.06437-76-4749Tftozoy5587661 2.16.840.1.457914.3.579.2.57261-84-1341Drjeeas4480801 2.16.840.1.966069.3.579.2.05481-52-7679Xhvpeme0450554 2.16.840.1.879986.3.579.2.18054-44-9958Elspopf1590567 2.16.840.1.835618.3.579.2.57450-59-1902Zhrkrrf2438763 2.16.840.1.979406.3.579.2.96805-67-2606Mmyfxxk3994876 2.16.840.1.246272.3.579.2.95991-39-1550Ijumixh9548870 2.16.840.1.612194.3.579.2.01675-22-3517Iyktwsa3944741 2.16.840.1.225523.3.579.2.40266-39-0486Niramnu7191542 2.16.840.1.683767.3.579.2.24319-94-3406Yuhktpu5507529 2.16.840.1.936614.3.579.2.77518-46-3303Bakabph9121886 2.16.840.1.340119.3.579.2.07726-17-5806Dkeqytt2375594 2.16.840.1.545659.3.579.2.34437-70-2525Himmbos8843124 2.16.840.1.938973.3.579.2.33622-35-9508Xmptncr7167786 2.16.840.1.751170.3.579.2.96093-18-0067Rmogffe9520254 2.16.840.1.236461.3.579.2.14420-44-1397Uchlzta1768433 2.16.840.1.127268.3.579.2.19409-45-0794Ezkbmpe2762456 2.16.840.1.222575.3.579.2.40983-41-6314Izuojub3179736 2.16.840.1.199186.3.579.2.19438-35-6904Jzitnba0896246 2.16.840.1.916016.3.579.2.07359-02-5041Qfbmzcy1788216 2.16.840.1.535923.3.579.2.21883-73-0330Aupoizm5898776 2.16.840.1.947219.3.579.2.13396-79-1959Blnheyn2064976 2.16.840.1.029008.3.579.2.89985-59-2840Pbejsoc0110775 2.16.840.1.849812.3.579.2.14472-25-5455Ywixfys3284462 2.16.840.1.017105.3.579.2.79936-07-0397Vlkuxsq6845708 2.16.840.1.307193.3.579.2.98020-38-6771Jzzsmeb8545709 2.16.840.1.432864.3.579.2.88154-12-4830Kofyvar9742612 2.16.840.1.678264.3.579.2.62184-37-5984Daahgjj1209655 2.16.840.1.008858.3.579.2.33681-22-8742Tkwyxsy594285027 2.16.840.1.861075.3.579.2.23963-39-9301Btcymmx667466336 2.16.840.1.013563.3.579.2.21900-60-6662Swnasoy35160680 2.16.840.1.477209.3.579.2.743393-70-2946Czturgk6727466 2.16.840.1.298062.3.579.2.039394-94-2156Ekuihgr1668180 2.16.840.1.085684.3.579.2.467026-45-5824Cqcwhjt13337880 2.16.840.1.546900.3.579.2.44704-15-4212Gvqtlxm75928375 2.16.840.1.075889.3.579.2.53489-81-4559Uypkejy06772532 2.16.840.1.306013.3.579.2.727 Social History DateTypeDetailFacilityStart: 01-12-2024 End: 89-14-9010Ibq [facility] 03-10-2023 End: 81-78-7614Qbqaijg smoking statusNever smoked tobacco (finding)[facility] Hospitaltart: 63-20-3959Bitseqv smoking statusNeverExecutive Urology [facility] Hospitaltart: 11-80-7541Nbpelfi use and exposureSmokeless tobacco non-userNOMS Healthcare Start: 01-12-2024 End: 01-63-2190Gosfcan of Social functionNOMS HealthcareStart: 18-79-9842Ijj assigned at [facility]Not on [facility] HealthcareTobacco smoking status NHISTobacco smoking consumption unknownLifepoint HealthStart: 64-80-1233EuoCmtr (finding)[facility] Functional Status EixyDwoylveilsDnxwtmGfvftqqo14-74-4777Qbkaggzmim StatusN/A[facility]04-23-2024Functional StatusN/A[facility]11-21-2023Functional StatusN/A [facility] Clinical Notes 04-12-2021 to 01-12-2025 Note Date & YnivMxbrFjbliwdp74-19-7276 History of Present illness Narrative* Tulio Ruggiero MD - 01/12/2025 9:44 AM EDTAssociated Problem(s): Type 2 diabetes mellitus with hyperglycemia, without long-term current use of insulin ([facility]) Reports BS controlled and due for A1C. [...] (BMI) of 37.0 to 37.9 in adult ([facility]) Weight loss indicated. * Tulio Ruggiero MD [...] index (BMI) of37.0 to 37.9 in adult ([facility]) Weight loss indicated. Type 2 diabetes mellitus with hyperglycemia, without long-term current use of insulin ([facility]) - Primary Reports BS controlled and due for A1C. Stick to [place] diet and limit carbs. Relevant Orders Microalbumin / creatinine, urine ratio Hemoglobin A1c Seasonal allergic rhinitis due to pollen Symptoms controlled with medication and continue. Primary insomnia Sleeping well with medication and continue. documented in this encounterTwo [facility]iatric HospitalOcxiqpuvsr69-13-2329 History of Present illness Narrative* Tulio Ruggiero [...] 800-160 MG per tablet documented in this encounterTwo Rivers Psychiatric HospitalEbvfhhlbuh92-58-1462 NoteProcedure: AP view of the orbits. Clinical [...] Is Signed, Electronically Signed in Other Vendor System)[facility]01-02-2025 History of Present illness Narrative* Tulio Ruggiero MD - 07/15/2024 9:51 AM ESTAssociated Problem(s): Dyslipidemia (CMS/HCC) Due for labs. * Tulio Ruggiero MD - 07/15/2024 9:50 AM ESTAssociated Problem(s): Class 2 severe obesity due to excess calories with serious comorbidity and body mass index (BMI) of 37.0 to 37.9 in adult ([facility]) Weight down 9 pounds in past year. Continue exercise and diet changes. * Tulio Ruggiero MD - 07/15/2024 9:49 AM ESTAssociated Problem(s): Polyneuropathy due to type 2 diabetes mellitus ([facility]) Neuropathy stable and continue neurontin. * Tulio Ruggiero MD - 07/15/2024 9:48 AM ESTAssociated Problem(s): Type 2 diabetes mellitus with hyperglycemia, without long-term current use of insulin ([facility]) Reports BS controlled and due for A1C. [...] index (BMI) of37.0 to 37.9 in adult ([facility]) Weight down 9 pounds in past year. Continue exercise and diet changes. Type 2 diabetes mellitus with hyperglycemia, without long-term current use of insulin ([facility]) Reports BS controlled and due for A1C. Stick to [place] diet and limit carbs. Polyneuropathy due to type 2 diabetes mellitus ([facility]) Neuropathy stable and continue neurontin. Annual physical [...] palpitations. Recommend routine PAT. documented in this encounterTwo Rivers Psychiatric HospitalOcutynhbcw22-29-1623 Hospital Discharge instructions Patient Education 05/27/2024 09:56:36 Kidney Stones, Bnlo-oj-Qhjz Kidney Stones Kidney stones are rock-like masses [...] Follow these instructions at home: Medicines Take ntce-gie-gcmgqwo and prescription medicines only as told by [...] provider. Document Revised: 02/21/2023 Document Reviewed: 02/21/2023 Youjia Patient Education 2023 mSpoke. Follow Up Care 11/04/2023 09:32:44 With:LIZ ABREU PA-C, URL Address: When:1 year [facility] 11-14-2024 NotePatient Education Urology Kidney [...] these instructions at home: Medicines ??? Take ptsr-fma-nfxslei and prescription medicines only as told by [...] provider. Document Revised: 02/21/2023 Document Reviewed: 02/21/2023 Youjia Patient Education ? 2023 mSpoke.[facility] 11-04-2023 Hospital Discharge instructions Patient Education [...] Follow these instructions at home: Medicines Take dvhm-gxo-ijmefsy and prescription medicines only as told by [...] provider. Document Revised: 09/26/2021 Document Reviewed: 09/26/2021 Youjia Patient Education 2022 mSpoke. Follow Up Care 06/03/2023 10:28:55 With:LIZ ABREU PA-C, URL Address: [address] [facility] [place] [address] [phone] When: Unknown [facility] 11-21-2023 Hospital Discharge instructions Patient [...] treatment? Where to find more information [employer]: www.cancer.org [employer]: www.auanet.org Contact a health care [...] provider. Document Revised: 12/24/2021 Document Reviewed: 12/24/2021 Youjia Patient Education 2022 mSpoke. Follow Up Care 05/29/2022 11:47:27 With:DAVID IVAN, LIZ Juarez, URL Address: [address] [place] [address] [phone] When: Unknown Comments:6 mos w/ PSA [facility] 05-23-2023 NotePROCEDURE: XR FOOT LT [...] authenticated by: ELIN MCCARTNEY Date: 2022-12-03 09:57[facility] HospitalDunrdbte82-43-8596 NotePROCEDURE: XR FOOT LT MIN 3 VIEWS [...] authenticated by: ZAFAR FERRER Date: 2022-11-12 13:59[facility]04-11-2023 NotePROCEDURE: XR FOOT LT MIN [...] Electronically authenticated by: ELIN MCCARTNEY Date: 2022-10-22 07:48[facility]04-11-2023 NotePROCEDURE: XR FOOT LT 2V HISTORY: Pain COMPARISON: XR foot left 10/21/2022 FINDINGS: BONES:Multiple intraoperative spot fluoroscopic images demonstrate mechanical fusion of the first metatarsophalangeal joint and resection of head of first proximal phalanx. IMPRESSION: 1. Surgical changes of left first toe as detailed above. Electronically authenticated by: ELIN MCCARTNEY Date: 2022-10-22 07:46[facility]01-18-2023 NoteCurrently stableUnChillicothe Hospital01-18-2023 NoteHypertension is well controlled 114/64 Continue lisinopril 5 mg Recent CR elevated 1.59- his cr typically has been 1.2-1.4 - He has been on antibiotics for Lt foot infection- DFU with wound care. [facility]01-18-2023 NoteLipid abnormalities are currently well controlled with lipitor 20 mg- LDL currently 58.6 on labs 07/26/2022 Liver function 04/2022 were normalUnChillicothe Hospital01-18-2023 NoteUTP CARDIOLOGY PROGRESS NOTE HPI: Carlos [...] stable RTC 1 year or earlier if neededUnChillicothe Hospital01-18-2023 NotePatient here for 6 mo follow up history of PE and hyperlipidemia. Had labs in Apr and echo in Jun 2022. Patient denies chest pain, SOB, and increase in LE edema. Doing very well from cardiac standpoint. Was seeing Dr. Steele for his varicose veins. Review of Systems Cardiovascular: Positive for leg swelling. All other systems reviewed and are negative.[facility] 07-31-2022 NoteCONSULTATION PROCEDURE DATE: 07/31/2022 INDICATIONS: [...] in the clinic in three months' time.[facility] HospitalXvppnujd98-80-9735 Note CONSULTATION CONSULTATION DATE: 07/25/2022 HISTORY OF PRESENT ILLNESS: This is a 66-year-old gentleman who presents to the Pain Clinic today with increased lower back pain. The patient does have chronic bilateral knee pain, but he states those are doing quite well. He did receive a left knee steroid injection in April. The patient just recently returned from a [place] vacation, where he visited multiple [employer] mayes and had a lot of increased [...] plan and will be contacted upon approval.[facility] HospitalKkiungiy78-73-3891 NotePROCEDURE: XR FOOT LT MIN 3 VIEWS [...] authenticated by: ELIN MCCARTNEY Date: 2022-07-24 10:21[facility] HospitalDubufwrs16-44-2624 NotePROCEDURE: XR KNEE LT 4V or > HISTORY: Pain in left knee ; chronic left knee pain COMPARISON: XR knee bilateral 05/31/2021 FINDINGS: BONES:Marked narrowing of the medial joint space with suspected cask-vo-gybv articulation. Moderate-marked narrowing of the lateral compartment. Mild narrowing of anterior compartment. Small periarticular osteophytes involving the margins of all 3 compartments. No fracture or dislocation. SOFT TISSUES:No visible soft tissue swelling. EFFUSION:Small joint effusion. OTHER: Negative. IMPRESSION: 1. Marked degenerative joint disease. Stable to minimally progressed. Electronically authenticated by: ELIN MCCARTNEY Date: 2022-06-10 19:35The [facility] HospitalZsaryxay38-75-4775 Evaluation note* Encounter Date Diagnosis Assessment Notes [...] May,ain in left knee (ICD-10 - M25.562) Fingerprint Other 10-11-2022 NoteCONSULTATION CONSULTATION DATE: 04/23/2022 CHIEF [...] the time being. CC: Felisa Berrios M.D.[facility] HospitalHuuedlid98-96-0354 NoteCONSULTATION CONSULTATION DATE: 04/04/2022 HISTORY OF PRESENT [...] indicated. Patient agreed with plan of care.[facility] HospitalKrmsecid29-01-0118 Note CONSULTATION CONSULTATION DATE: 02/14/2022 HISTORY OF [...] time unless otherwise indicated. Patient acknowledges understanding.[facility] HospitalNazuzrgq22-18-9720 NoteCONSULTATION PROCEDURE DATE: 02/14/2022 PREOPERATIVE DIAGNOSIS: Bilateral [...] will be followed up in the office.[facility] HospitalLzaifjgt80-68-8097 Evaluation note* Encounter Date Diagnosis Assessment Notes [...] Jul,ain in left knee (ICD-10 - M25.562) Fingerprint Other 09-30-2021 Evaluation note* Encounter Date Diagnosis Assessment Notes Treatment Notes Treatment Clinical Notes Mar, Liver hemangioma (ICD-10 - D18.0 3) Mar,NASH (nonalcoholic steatohepatitis) (ICD-10 - K75.81) Fingerprint Other Evaluation + Plan note Future Appointments Appointment Date:11/04/2023 08:30:00 AM Scheduled Provider:LIZ ABREU PA-C Location:[facility] Appointment Type:URO Office Visit Diagnostic Tests Pending * PSA Total 06/03/23 [facility] evaluation + Plan note Future Appointments Appointment Date:05/25/2024 08:40:00 AM Scheduled Provider:LIZ ABREU PA-C Location:[facility] Appointment Type:URO Office Visit [facility] evaluation note* Diagnosis Polyneuropathy due to type 2 diabetes mellitus ([facility]) documented in this encounter [facility] HealthcareEvaluation note* Diagnosis Male hypogonadism Other testicular hypofunction documented in this encounter [facility] HealthcareEvaluation note* Diagnosis Annual physical exam- Primary Routine general medical examination at a [facility] care facility Type 2 diabetes mellitus with hyperglycemia, without long-term current use of insulin ([facility]) Type 2 diabetes mellitus with hyperglycemia, without long-term current use of insulin ([facility])- Primary Arthritis, gouty Gouty arthropathy, unspecified Seasonal [...] hyperglycemia, without long-term current use of insulin ([facility]) Arthritis, gouty Gouty arthropathy, unspecified 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) Class 2 severe obesity due to excess calories with serious comorbidity and body mass index (BMI) of37.0 to 37.9 in adult (CMS/[facility]) Dyslipidemia (CMS/[facility]) Other and unspecified hyperlipidemia documented in this encounter [facility] HealthcareEvaluation note* Diagnosis Annual physical exam- Primary Routine general medical examination at a health care facility Type 2 diabetes mellitus with hyperglycemia, without long-term current use of insulin ([facility]) Type 2 diabetes mellitus with hyperglycemia, without long-term current use of insulin ([facility])- Primary Arthritis, gouty Gouty arthropathy, unspecified Seasonal allergic rhinitis due to pollen DDD (degenerative disc disease), lumbar Degeneration of lumbar or lumbosacral intervertebral disc Polyneuropathy due to type 2 diabetes mellitus ([facility]) Primary insomnia Persistent disorder of initiating or maintaining sleep Annual physical exam- Primary Routine general medical examination at a health care facility Encounter for preoperative assessment Type 2 diabetes mellitus with hyperglycemia, without long-term current use of insulin ([facility]) Arthritis, gouty Gouty arthropathy, unspecified Polyneuropathy due to type 2 diabetes mellitus ([facility]) Class 2 severe obesity due to excess calories with serious comorbidity and body mass index (BMI) of37.0 to 37.9 in adult ([facility]) Dyslipidemia ([facility]) Other and unspecified hyperlipidemia Type 2 diabetes mellitus with hyperglycemia, without long-term current use of insulin ([facility])- Primary Dyslipidemia ([facility]) Other and unspecified hyperlipidemia Class 2 severe obesity due to excess calories with serious comorbidity and body mass index (BMI) of37.0 to 37.9 in adult ([facility]) Encounter for long-term current use of medication Screening PSA (prostate specific antigen) Special screening for malignant neoplasm of prostate documented in this encounter [facility] HealthcareEvaluation note* Diagnosis Annual physical exam- Primary Routine general medical examination at a [facility] care facility Type 2 diabetes mellitus with hyperglycemia, without long-term current use of insulin ([facility]) Type 2 diabetes mellitus with hyperglycemia, without long-term current use of insulin ([facility])- Primary Arthritis, gouty Gouty arthropathy, unspecified Seasonal allergic rhinitis due to pollen DDD (degenerative disc disease), lumbar Degeneration of lumbar or lumbosacral intervertebral disc Polyneuropathy due to type 2 diabetes mellitus ([facility]) Primary insomnia Persistent disorder of initiating or maintaining sleep Annual physical exam- Primary Routine general medical examination at a health care facility Encounter for preoperative assessment Type 2 diabetes mellitus with hyperglycemia, without long-term current use of insulin ([facility]) Arthritis, gouty Gouty arthropathy, unspecified Polyneuropathy due to type 2 diabetes mellitus ([facility]) Class 2 severe obesity due to excess calories with serious comorbidity and body mass index (BMI) of37.0 to 37.9 in adult ([facility]) Dyslipidemia ([facility]) Other and unspecified hyperlipidemia Morbid obesity ([facility]) Morbid obesity Polyneuropathy due to type 2 diabetes mellitus ([facility]) Type 2 diabetes mellitus with hyperglycemia, without long-term current use of insulin ([facility]) documented in this encounter [facility] Healthcare[facility]* Diagnosis Annual physical exam- Primary Routine general medical examination at a health care facility Type 2 diabetes mellitus with hyperglycemia, without long-term current use of insulin ([facility]) Type 2 diabetes mellitus with hyperglycemia, without long-term current use of insulin ([facility])- Primary Arthritis, gouty Gouty arthropathy, unspecified Seasonal allergic rhinitis due to pollen DDD (degenerative disc disease), lumbar Degeneration of lumbar or lumbosacral intervertebral disc Polyneuropathy due to type 2 diabetes mellitus ([facility]) Primary insomnia Persistent disorder of initiating or maintaining sleep Annual physical exam- Primary Routine general medical examination at a health care facility Encounter for preoperative assessment Type 2 diabetes mellitus with hyperglycemia, without long-term current use of insulin ([facility]) Arthritis, gouty Gouty arthropathy, unspecified Polyneuropathy due to type 2 diabetes mellitus ([facility]) Class 2 severe obesity due to excess calories with serious comorbidity and body mass index (BMI) of37.0 to 37.9 in adult ([facility]) Dyslipidemia ([facility]) Other and unspecified hyperlipidemia Abscess of abdominal wall- Primary Cellulitis and abscess of trunk documented in this encounter [facility]* Diagnosis Annual physical exam- Primary Routine general medical examination at a health care facility Type 2 diabetes mellitus with hyperglycemia, without long-term current use of insulin ([facility]) Type 2 diabetes mellitus with hyperglycemia, without long-term current use of insulin ([facility])- Primary Arthritis, gouty Gouty arthropathy, unspecified Seasonal allergic rhinitis due to pollen DDD (degenerative disc disease), lumbar Degeneration of lumbar or lumbosacral intervertebral disc Polyneuropathy due to type 2 diabetes mellitus ([facility]) Primary insomnia Persistent disorder of initiating or maintaining sleep Annual physical exam- Primary Routine general medical examination at a health care facility Encounter for preoperative assessment Type 2 diabetes mellitus with hyperglycemia, without long-term current use of insulin ([facility]) Arthritis, gouty Gouty arthropathy, unspecified Polyneuropathy due to type 2 diabetes mellitus ([facility]) Class 2 severe obesity due to excess calories with serious comorbidity and body mass index (BMI) of37.0 to 37.9 in adult ([facility]) Dyslipidemia ([facility]) Other and unspecified hyperlipidemia Abscess of abdominal wall- Primary Cellulitis and abscess of trunk Annual physical exam- Primary Routine general medical examination at a health care facility Morbid obesity ([facility]) Morbid obesity Polyneuropathy due to type 2 diabetes mellitus ([facility]) Type 2 diabetes mellitus with hyperglycemia, without long-term current use of insulin ([facility]) Arthritis, gouty Gouty arthropathy, unspecified documented in this encounter [facility] HealthcareEvaluation note* Diagnosis Annual physical exam- Primary Routine general medical examination at a health care facility Type 2 diabetes mellitus with hyperglycemia, without long-term current use of insulin ([facility]) Type 2 diabetes mellitus with hyperglycemia, without long-term current use of insulin ([facility])- Primary Arthritis, gouty Gouty arthropathy, unspecified Seasonal allergic rhinitis due to pollen DDD (degenerative disc disease), lumbar Degeneration of lumbar or lumbosacral intervertebral disc Polyneuropathy due to type 2 diabetes mellitus ([facility]) Primary insomnia Persistent disorder of initiating or maintaining sleep Annual physical exam- Primary Routine general medical examination at a health care facility Encounter for preoperative assessment Type 2 diabetes mellitus with hyperglycemia, without long-term current use of insulin ([facility]) Arthritis, gouty Gouty arthropathy, unspecified Polyneuropathy due to type 2 diabetes mellitus ([facility]) Class 2 severe obesity due to excess calories with serious comorbidity and body mass index (BMI) of37.0 to 37.9 in adult ([facility]) Dyslipidemia ([facility]) Other and unspecified hyperlipidemia Abscess of abdominal wall- Primary Cellulitis and abscess of trunk Male hypogonadism Other testicular hypofunction documented in this encounter [facility] HealthcareEvaluation note* Diagnosis Annual physical exam- Primary Routine general medical examination at a health care facility Type 2 diabetes mellitus with hyperglycemia, without long-term current use of insulin ([facility]) Type 2 diabetes mellitus with hyperglycemia, without long-term current use of insulin ([facility])- Primary Arthritis, gouty Gouty arthropathy, unspecified Seasonal allergic rhinitis due to pollen DDD (degenerative disc disease), lumbar Degeneration of lumbar or lumbosacral intervertebral disc Polyneuropathy due to type 2 diabetes mellitus ([facility]) Primary insomnia Persistent disorder of initiating or [...] index (BMI) of37.0 to 37.9 in adult ([facility]) Dyslipidemia ([facility]) Other and unspecified hyperlipidemia Abscess of abdominal wall- Primary Cellulitis and abscess of trunk Polyneuropathy due to type 2 diabetes mellitus ([facility]) documented in this encounter [facility] HealthcareEvaluation [...] index (BMI) of37.0 to 37.9 in adult ([facility]) Dyslipidemia Other and unspecified hyperlipidemia Type 2 [...] index (BMI) of37.0 to 37.9 in adult ([facility]) Type 2 diabetes mellitus with diabetic chronic kidney disease (HCC) Chronic kidney disease, stage 3a ([facility]) documented in this encounter [facility] note* Diagnosis Aftercare following left knee joint replacement surgery documented in this encounter [facility] note* Diagnosis Annual physical exam- [...] use of insulin ([facility]) Arthritis, gouty Gouty arthropathy, unspecified 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) Class 2 severe obesity due to excess calories with serious comorbidity and body mass index (BMI) of37.0 to 37.9 in adult ([facility]) Dyslipidemia Other and unspecified hyperlipidemia Type 2 diabetes mellitus with hyperglycemia, without long-term current use of insulin ([facility])- Primary Arthritis, gouty Gouty arthropathy, unspecified Seasonal allergic rhinitis due to pollen Primary insomnia Persistent disorder of initiating or maintaining sleep Degeneration of intervertebral disc of lumbar region with discogenic back pain Class 2 severe obesity due to excess calories with serious comorbidity and body mass index (BMI) of37.0 to 37.9 in adult ([facility]) Type 2 diabetes mellitus with diabetic chronic kidney disease (HCC) Chronic kidney disease, stage 3a ([facility]) 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) [facility] N[facility]ative - Reported* Type Description Date Medical History DM II Medical HistoryHTNMedical HistoryhyperlipidemiaMedical HistorygoutSurgical Historyknee surgerySurgical HistorytonsillectomySurgical Historyvasectomy Surgical Historysinus surgerySurgical Historyback injectionsHospitalization HistorySEE ABOVE SURGICAL HX Fingerprint Other Hospital course Narrative No data available for this section [facility] progress note No data available for this section [facility] Summary Purpose Family History No [...] section and content) DATE CREATED AUTHOR 03/29/2021 [facility] DATE CREATED AUTHOR AUTHOR'S ORGANIZ ATION 08/06/2022 [facility] DATE CREATED AUTHOR AUTHOR'S ORGANIZ ATION 12/20/2022 [facility] DATE CREATED AUTHOR AUTHOR'S ORGANIZ ATION 07/28/2024 [facility] DATE CREATED AUTHOR AUTHOR'S ORGANIZ ATION 01/14/2025 [facility] DATE CREATED AUTHOR AUTHOR'S ORGANIZ ATION 02/04/2025 [facility] DATE CREATED AUTHOR AUTHOR'S ORGANIZ ATION 03/31/2025 [facility] REASON FOR VISIT (unrecogniz ed section and content) ReasonCommentsMed RefillReasonOnset DateCommentsMed Etmozu1904/06/2024eason ZtkabadyVxyjhu-tk8dJfqyepUsoxvuvkQjmppw-zcBpsz on stomach/ poppedReasonOnset DateCommentsMed Gdlbhx6511/08/2024ReasonOnset DateCommentsMed Bhderw4112/06/2024 Patient Care team informatio n (unrecognized section and content) Team MemberRelationshipSpecialtyStart DateEnd Date Tulio Ruggiero MD [address] [place] [address] PCP - [facility] Roldcjwhcc18/1/23 Tulio Ruggiero MD [address] [place] [address] PCP - GeneralFamily Medicine01/12/24Team MemberRelationshipSpecialtyStart DateEnd Date Tulio Ruggiero MD [address] [place] [address] PCP - [facility] Lgyajvyoye22/1/23 Tulio Ruggiero MD [address] [place] [address] PCP - [facility] Medicine01/12/24Team MemberRelationshipSpecialtyStart DateEnd Date Tulio Ruggiero MD [address] [place] [address] PCP - [facility] Xubuzzwfaf40/1/23 Tulio Ruggiero MD [address] [place] [address] PCP - [facility]01/12/24Team MemberRelationshipSpecialtyStart DateEnd Date Tulio Ruggiero MD [address] [place] [address] PCP - [facility] Ksxwtuxcdo94/1/23 Tulio Ruggiero MD [address] [place] [address] PCP - Generalmi Medicine01/12/24Team MemberRelationshipSpecialtyStart DateEnd Date Tulio Ruggiero MD [address] [place] [address] PCP - [facility] Qacjcapqxg37/1/23 Tulio Ruggiero MD [address] [place] [address] PCP - GeneralFamily Medicine01/12/24Team MemberRelationshipSpecialtyStart DateEnd Date Tulio Ruggiero MD [address] [place] [address] PCP - [facility] Nrkyedmwcx60/1/23 Tulio Ruggiero MD [address] [place] [address] PCP - Generalmi Medicine01/12/24Team MemberRelationshipSpecialtyStart DateEnd Date Tulio Ruggiero MD [address] [place] [address] PCP - [facility] Gxywgybrfs57/1/23 Tulio Ruggiero MD [address] [place] [address] PCP - Generalmily Medicine01/12/24Team MemberRelationshipSpecialtyStart DateEnd Date Tulio Ruggiero MD [address] [place] [address] PCP - GeneralFamily Medicine01/12/24Team MemberRelationshipSpecialtyStart DateEnd Date Tulio Ruggiero MD [address] [place] [address] PCP - GeneralFamily Medicine01/12/24Team MemberRelationshipSpecialtyStart DateEnd Date Tulio Ruggiero MD [address] [place] [address] PCP - GeneralFamily Medicine01/12/24Team MemberRelationshipSpecialtyStart DateEnd Date Tulio Ruggiero MD [address] [place] [address] PCP - GeneralFamily Medicine01/12/24Team MemberRelationshipSpecialtyStart DateEnd Date Tulio Ruggiero MD [address] [place] [address] PCP - GeneralFamily Medicine01/12/24Team MemberRelationshipSpecialtyStart DateEnd Date Tulio Ruggiero MD [address] [place] [address] PCP - GeneralFamily Medicine01/12/24Team MemberRelationshipSpecialtyStart DateEnd Date Tulio Ruggiero MD [address] [place] [address] PCP - GeneralFamily Medicine01/12/24Team MemberRelationshipSpecialtyStart DateEnd Date Tluio Ruggiero MD [address] [place] [address] PCP - GeneralFamily Medicine01/12/24Team MemberRelationshipSpecialtyStart DateEnd Date Tulio Ruggiero MD [address] [place] [address] PCP - GeneralFamily Medicine01/31/25Team MemberRelationshipSpecialtyStart DateEnd Date Tulio Ruggiero MD [address] [place] [address] PCP - [facility] Bqljtizayt93/1/ Tulio Ruggiero MD [address] [place] [address] PCP - GeneralFamily Medicine01/12/24Team MemberRelationshipSpecialtyStart DateEnd Date Tulio Ruggiero MD PCP - GeneralFamily Medicine Tulio Ruggiero MD [address] [place] [address] PCP - [facility] Zqexbpbjsu30/1/ Tulio Ruggiero MD [address] [place] [address] PCP - GeneralFamily Medicine01/12/24Team MemberRelationshipSpecialtyStart DateEnd Date Tulio Ruggiero MD PCP - GeneralFamily Medicine01/12/24Team MemberRelationshipSpecialtyStart DateEnd Date Tulio Ruggiero MD PCP - [facility]01/12/24Team MemberRelationshipSpecialtyStart DateEnd Date Tulio Ruggiero MD PCP - [facility] Medicine Tulio Ruggiero MD [address] [place] [address] [facility] Tulio Ruggiero MD [address] [place] [address] [facility]01/12/24Team MemberRelationshipSpecialtyStart DateEnd Date Tulio Ruggiero MD [facility] - [facility]01/12/24 FOR RECORDS PERTAINING TO PATIENTS WHO [...] BE BASED ON THE PRIMARY CLINICAL RECORDS. [facility]. provides no warranty or guarantee of the accuracy or completeness of information in this document.
--- OUTSIDE RECORDS SUMMARY | 2025-05-18 08:18 | XMS_ITS | Clinical Summary ---
Author Organization [facility] Address [id number] [address] [place] [address] Care Team Providers Care Specimen Processor Name Role Phone Unavailable Primary Care Provider Unavailabl e Social History Tobacco UseTypesPacks/DayYears UsedDateSmoking Tobacco: Never AssessedChildcare AnswerDate VeggqplwQvoyeoikoSzjzpur99/11/2019EmploymentAnswerDate Recorded YmzgwbietcIkwwcdz13/11/2019Purpose - LifeAnswerDate RecordedPurpose and direction in oxlmMfdiooo83/11/2021ex and Gender InformationValueDate Recorded Sex Assigned at BirthNot on fileLegal IseXnhu1602/14/2015 9:00 PM EDTGender IdentityNot on fileSexual OrientationNot on file Plan of Treatment Health MaintenanceDue DateLast DoneCommentsDepression Nnqmtmzhm99/09/1969Tobacco Enxzwzxrm53/09/1969Adult BMI Jnbvaczhr33/09/1975DTaP,Tdap and Td Vaccines (1 - Tdap)1975Zoster (Shingles) Vaccine (1 of 2)2006Fall Risk Screening 2021Influenza Jedlbot9003/14/2025RSV ( or age 60+ yrs) (1 - 1-dose 75+ series)2031 Medical Devices Not on file
--- OUTSIDE RECORDS SUMMARY | 2025-05-18 08:18 | XMS_ITS | Encounter Summary ---
Author Organization [facility] Address [address] [place] [address] Care Team Providers Care Transformer Shop Supervisor Name Role Phone Tulio Madrid MD Primary Care Provider [phone] Encounter Details DateTypeDepartmentCare Team (Latest Contact Info)Ebzxomkcbzk40/07/2025linisync Result Encounter [facility] External Department Unsolicited Provider, Generic External Data Social History Tobacco UseTypesPacks/DayYears UsedDateSmoking Tobacco: NeverSmokeless Tobacco: NeverSex and Gender InformationValueDate RecordedSex Assigned at BirthNot on fileLegal JuuLjur9609/25/2022 7:24 PM EDTGender IdentityNot on fileSexual OrientationNot [...] EST Narrative 07/20/2024 8:01 PM EST [facility] ?[address] ? [place] [address] ? Electrocardiograph Report ? Signed ? Patient: CORNELIA,WARNER Farrar ?MR#: [id number] ?? : 1955 ?Acct:[id number] ?? Age/Sex: 68 / M ?ADM Date: 07/20/24 ?? Loc: PST ? Attending Dr: Daniele Valencia M.D. ? Ordering Physician: Daniele Valencia M.D. ?? Date of Service: 07/20/24 ?? Procedure(s): ECG 12 lead ?? Accession Number(s): [id number] ? cc: ?[facility] ? Test Date: ?2024-07-20 ?? Pat Name: ? WARNER CORNELIA ? Department: ? Room: ? - ?? Gender: ? Male ? [employer] Director: ? : ?1955 ? Requested By: [id number] ?? Order Number: [id number] ?Reading MD: ?? ABDOULAYE ??BALL ? Measurements ?? Intervals ?Blanco ? Rate: ? 73 ? P: ?65 ?? AK: ? 169 ?QRS: ?-58 ?? QRSD: ? [...] 2001 ? DD/ 0949 ? TD/TT: ? Chute Man: Procedure Note Radiology, Radiologist, - 07/20/2024 [place] [address] Electrocardiograph Report Signed Patient: WARNER LOCKE CMR#: [id number] : 1955cct:[id number] Age/Sex: 68 / MADM Date: 07/20/24 Loc: [facility] Attending Dr: Daniele Valencia M.D. Ordering Physician: Daniele Valencia M.D. Date of Service: 07/20/24 Procedure(s): ECG 12 lead Accession Number(s): [id number] cc: [facility] Test Date: 2024-07-20 Pat Name: WARNER LOCKE Department: Room: - Gender: Male [employer] Director: : 1955 Requested By: [id number] Order Number: [id number] Reading MD: ABDOULAYE PADILLA Measurements Intervals Blanco Rate: 73 P: 65 AK: 169 QRS: -58 QRSD: 140 T: 38 QT: 387 QTc: 429 Interpretive Statements SINUS RHYTHM RIGHT BUNDLE BRANCH BLOCK [120+ ms QRS DURATION, UPRIGHT V1, 40+ ms S IN I/aVL/V4/V5/V6] LEFT ANTERIOR FASCICULAR BLOCK [QRS AXIS <= -45, QR IN I, RS IN II] Electronically Signed On 07-20-2024 20:01:19 EST by ABDOULAYE PADILLA Dictated By: Abdoulaye Padilla D.O. Signed By:07/20/242000 DD/ 0949 TD/TT: Chute Man: Authorizing ProviderResult TypeResult StatusGeneric External Data Provider [facility] IMAGINGFinal Result documented in this encounter Visit Diagnoses Not on filedocumented in this encounter Care Teams Team MemberRelationshipSpecialtyStart DateEnd Date Tulio Madrid MD PCP - GeneralFamily Medicine01/12/24documented as of this encounter
--- OUTSIDE RECORDS SUMMARY | 2025-05-18 08:18 | XMS_ITS | Encounter Summary ---
Author Organization [facility] Address [address] [place] [address] Care Team Providers Care Bow Rehairer Name Role Phone Harinder Ruggiero MD Primary Care Provider Encounter Details DateTypeDepartmentCare Team (Latest Contact Info)Rrocpkukbmr17/07/2025linisync Result Encounter [facility] External Department Unsolicited Provider, Generic External Data Social History Tobacco UseTypesPacks/DayYears UsedDateSmoking Tobacco: NeverSmokeless Tobacco: NeverSex and Gender InformationValueDate RecordedSex Assigned at BirthNot on fileLegal TqgQscs9609/25/2022 7:24 PM EDTGender IdentityNot on fileSexual OrientationNot on filedocumented as of this encounter Plan of Treatment Not on file documented as of this encounter Procedures Procedure NamePriorityDate/TimeAssociated DiagnosisCommentsALL MISCELLANEOUS HEIKViawlld05/07/2025 9:59 AM EST MRSA SCREENING AYEFIJCYudkajt62/07/2025 9:50 AM EST ECG 12-LEAD07/20/2024 9:50 AM EST documented in this encounter Results * ALL MISCELLANEOUS TEST (07/20/2024 9:59 AM EST)ComponentValueRef RangeTest MethodAnalysis TimePerformed AtPathologist SignatureMISCELLANEOUS TESTCOMMENT. TBHComment: Test Ordered: [id number] Nicotine and Metabolite, Ur Qn Nicotine <10.0 ng/mL BN ?? Reference Range: . This test was developed and its performance characteristics determined by [facility]. It has not been cleared or [...] tobacco cessation products. Performed at: ?? - [facility] ??[id number] Sba Underwriter: Giovany Bhatt MD, Phone: ??[phone] Performed at: ?? - [facility] ??[id number] Sba Underwriter: Ivan Mckay PhD, Phone: ??[phone] Specimen (Source)Anatomical Location / LateralityCollection Method / Volume Collection TimeReceived Time07/20/2024 9:59 AM EST07/20/2024 10:02 AM EST Narrative [facility] - 07/23/2024 7:09 AM EST [id number] Nicotine and Metabolite, Quantitative, Urine Authorizing ProviderResult TypeResult StatusGeneric External Data Provider CLINISYNCFinal ResultPerforming OrganizationAddressCity/State/ZIP CodePhone Number [facility] * MRSA SCREENING CULTURE (07/20/2024 9:50 AM EST)ComponentValueRef RangeTest MethodAnalysis TimePerformed AtPathologist SignatureMRSASCRN1 ??MRSA Screening Culture JAZLMJYPLCQ7EpiowsvnWMMUOCYWEQH5Ippuvzjiu at: [facility]CRN[facility] [address] [place] [address] [id number] Director: Ivan Mckay PhD, Phone: [phone] (Source)Anatomical Location / LateralityCollection Method / VolumeCollection [...] EST Narrative 07/20/2024 8:02 PM EST [facility] ?[address] ? [place] [address] ? Electrocardiograph Report ? Signed ? Patient: CORNELIA,WARNER C ?MR#: [id number] ?? : 1955 ?Acct:[id number] ?? Age/Sex: 68 / M ?ADM Date: 07/20/24 ?? Loc: PST ? Attending Dr: Daniele Valencia M.D. ? Ordering Physician: Daniele Valencia M.D. ?? Date of Service: 07/20/24 ?? Procedure(s): ECG 12 lead ?? Accession Number(s): [id number] ? cc: ?[facility] ? Test Date: ?2024-07-20 ?? Pat Name: ? WARNER CONRELIA ? Department: ? Room: ? - ?? Gender: ? Male ? Photoengraver: ? : ?1955 ? Requested By: HARINDER RUGGIERO ?? Order Number: [id number] ?Reading MD: ?? ABDOULAYE ??BALL ? Measurements ?? Intervals ?[place] ? Rate: ? 83 ? P: ?-3 ?? LA: ? 155 ?QRS: ?-53 ?? QRSD: ? [...] 2002 ? DD/ 0950 ? TD/TT: ? Salon Customer Experience Specialist: Procedure Note Radiology, Radiologist, - 07/20/2024 [place] [address] Electrocardiograph Report Signed Patient: WARNER LOCKE CMR#: [id number] : 7Acct:[id number] Age/Sex: 68 / MADM Date: 07/20/24 Loc: PST Attending Dr: Daniele Valencia M.D. Ordering Physician: Daniele Valencia M.D. Date of Service: 07/20/24 Procedure(s): ECG 12 lead Accession Number(s): [id number] cc: [facility] Test Date: 2024-07-20 Pat Name: WARNER LOCKE Department: Room: - Gender: Male Photoengraver: : 1955 Requested By: HARINDER RUGGIERO Order Number: [id number] Reading MD: ABDOULAYE PADILLA Measurements Intervals [place] Rate: 83 P: -3 LA: 155 QRS: -53 QRSD: 141 T: 33 QT: 381 QTc: 449 Interpretive Statements SINUS RHYTHM RIGHT BUNDLE BRANCH BLOCK [120+ ms QRS DURATION, UPRIGHT V1, 40+ ms S IN I/aVL/V4/V5/V6] LEFT ANTERIOR FASCICULAR BLOCK [QRS AXIS <= -45, QR IN I, RS IN II] Electronically Signed On 07-20-2024 20:01:41 EST by ABDOULAYE PADILLA Dictated By: Abdoulaye Padilla D.O. Signed By:07/20/242001 DD/ 0950 TD/TT: Salon Customer Experience Specialist: Authorizing ProviderResult TypeResult StatusGeneric External Data Provider CLINISYNC IMAGINGFinal Result documented in this encounter Visit Diagnoses Not on filedocumented in this encounter Care Teams Team MemberRelationshipSpecialtyStart DateEnd Date Harinder Ruggiero MD PCP - GeneralFamily Medicine01/12/24documented as of this encounter
--- OUTSIDE RECORDS SUMMARY | 2025-05-18 08:19 | XMS_ITS | Clinical Summary ---
Author Organization [facility] Address [address] [place] [address] Care Team Providers Care Director Funds Development Name Role Phone Tulio Madrid MD Primary Care Provider [phone] Allergies Active AllergyReactionsCriticalityNoted VwsoGlweuktsNucxgvrykHitiq09/18/2023 Oxycodone-Cjcvuusrrunsl24/18/2023 Medications MedicationSigDispense QuantityRefillsLast FilledStart DateEnd DateStatus atorvastatin (Lipitor) 20 mg tablet atorvastatin 20 mg tablet TAKE 1 TABLET BY MOUTH EVERYDAY AT NDAOFSZ1504/25/2020Active colchicine 0.6 mg tablet Take 0.6 mg [...] 2 TABLETS BY MOUTH EVERY DAY AT PTQRTOQ3007/11/2022ctive Active Problems ProblemNoted DateDiagnosed DateBenign prostatic hyperplasia with urinary arfqvrjpyzv26/18/2023History of colonic gvlaku9107/31/2022Hydronephrosis with renal and ureteral calculus pjcahuhfwlq12/18/2023Liver mass07/31/2022Long term current use of anticoagulant erldjis8707/31/2022Neoplasm of uncertain behavior of liver and biliary weyccdtd38/18/9543Jrwqvetb14/18/6008Eibpah87/31/2022ack pain 12/11/2021iabetes ilxmrtby50/31/4455Xgnw72/31/2022History of pulmonary embolism 12/11/2021 Assessment & Plan (07/31/2022 2:19 PM EST): Currently stable History of severe acute respiratory syndrome coronavirus 2 (SARS-CoV-2) disease 12/11/20213576Jkahjcgykdcaih24/31/2022 Assessment & Plan (07/31/2022 2:17 PM EST): Lipid abnormalities are currently well controlled with lipitor 20 mg- LDL currently 58.6 on labs 07/26/2022 Liver function 04/2022 were normal Hypertensive apufiwis99/31/2022 Assessment & Plan (07/31/2022 2:18 PM EST): Hypertension is well controlled 114/64 Continue lisinopril 5 mg Recent CR elevated 1.59- his cr typically has been 1.2-1.4 - He has been on antibiotics for Lt foot infection- DFU with wound care. Yknfbuv8212/11/2021bstructive sleep apnea qsyjodxk11/31/2022 Family History Medical HistoryRelationNameCommentsStrokeFatherRelationNameStatusCommentsFather Social History Tobacco UseTypesPacks/DayYears UsedDateSmoking Tobacco: NeverSmokeless Tobacco: Never Tobacco Cessation:Counseling Given: Not Answered Alcohol UseStandard Drinks/WeekCommentsYes0 (1 standard drink = 0.6 oz pure alcohol)occasionalUT Safety & EnvironmentAnswerDate RecordedFear of Current or Ex-PartnerNot on file09/04/2023Emotionally AbusedNot on file09/04/2023hysically AbusedNot on file09/04/2023Sexually AbusedNot on file09/04/2023hysically or Sexually AbusedNot on file09/04/2023Sex and Gender InformationValueDate Recorded Sex Assigned at BirthNot on fileLegal TodYpcd6401/09/2022 9:30 PM EDTGender IdentityNot on fileSexual OrientationNot on file Last Filed Vital Signs Vital SignReadingTime TakenCommentsBlood Cjrcvble639/6401 1:39 PM EST Uexkk744207/31/2022 1:39 PM ESTTemperature--Respiratory Rate--Oxygen Dclrtrsxob80% 07/31/2022 1:39 PM ESTInhaled Oxygen Concentration--Xhnoiw445 kg (308 lb) 07/31/2022 1:39 PM JRSAoysbe039.4 cm (6' 1 )07/31/2022 1:39 PM ESTBody Mass Index40.64007/31/2022 1:39 PM EST Plan of Treatment Health MaintenanceDue DateLast DoneCommentsCT Ujpcjlixlnee42/09/1957Colonoscopy 1955Colorectal Cancer Jbxutleek29/09/1957Diabetes: Hemoglobin A1C 1955FIT-DNA1956FIT1956FOBT1956Medicare Annual Wellness (AWV)1955 3288Iqjqvoxbtlhns48/09/1957Diabetes: Retinopathy Tcbhnjpus98/09/1967 Depression Qjmmrxwmg06/09/1969Diabetes: Urine Protein Cqocwmwtq28/09/1976Adult Itrnrbb0908/22/1978Zoster Vaccines (1 of 2)2006Fall Risk Vrspzzwrn79/09/2022 Pneumococcal Vaccine: 50+ Years (2 of 2 [...] Date Tulio Madrid MD [address] [place] [address] PCP - [facility]07/05/24
--- OUTSIDE RECORDS SUMMARY | 2025-05-18 08:19 | XMS_ITS | Clinical Summary ---
Author Organization [facility] Address [address] [place] [address], [address] [place] [address] Care Team Providers Care Cross Enterprise Integrator Name Role Phone Tulio Madrid MD Primary Care Provider + Social History Tobacco UseTypesPacks/DayYears UsedDateSmoking Tobacco: Never AssessedSex and Gender InformationValueDate RecordedSex Assigned at BirthNot on fileLegal Sex Male01/31/2025 12:58 PM EDTGender IdentityNot on fileSexual OrientationNot on file Plan of Treatment Health MaintenanceDue DateLast DoneCommentsDepression Umtqvd9608/22/1968Hepatitis C fpcxpu9008/22/1974DTaP/Tdap/Td vaccine (1 - Tdap)08/22/19751090Xiepip00/09/1997 Qjqlkppbzrx85/09/2002Colorectal Cancer Enhyyy7808/22/2001FIT/FOBT: Average risk 2001Fecal-DNA (Cologuard): Average risk2001Sigmoidoscopy/CT scfmgsjcvexc82/09/2002Shingles vaccine (1 of 2)2006Pneumococcal 50+ years Vaccine [...] Date Tulio Madrid MD [address] [place] [address] PCP - GeneralFanyly Medicine01/31/25
--- OUTSIDE RECORDS SUMMARY | 2025-05-18 08:19 | XMS_ITS | Patient Health Record ---
Author Organization [facility] Address [address] [place] [address] Care Team Providers Care Cosmetic Sales Name Role Phone Tulio Madrid Primary Care Provider Daniele Ruffin Unavailable [phone] Akash Hall Unavailable [phone] Results Component Value Reference Range Notes XR Knee Standing AP Bilatera l (Not [...] Locke Procedure: AP view of the orbits. Surgery Scheduling Reviewed date:08/31/2024 09:51:53 AM Interpretation: Performing Lab: Notes/Report: Primary Insurance Company: [employer]IL[employer] Surgeon/Assist:ANTHONY/VAHE ONESmackenzie [facility]: [facility] @ 9 [facility] arrival time day of:7:00 AMSurgery End Time:12:00Procedure: LEFT TOTAL KNEE ARTHROPLASTYSpecial Equipment:[facility] [employer] VISIONEERC-Arm: YESDiagnosis:OSTEOARTHRITIS OF LEFT KNEEAdmission Type:OPAnesthesia Type/CPNB: GENERAL/UISTGFdw19 HR OBSPost-op Appointment Date:2/10/25 @ 2 PMLatex AllergyNO Lab Location:[facility] Date/Time:07/20/2024 @ [facility] Date/ Business Owner/Engineer:ISMAEL [employer] & Physical Appointment Date/:07/26/24Pre-op labs/Chest Order:CBC WI,CMP,MRSA,UA WITH C AND S, URINE NICOTINE,CXR,EKGHad or have MRSA/Direct contact w MRSA pt/HCWNOHad dental problems/Yes-no/type:NOXR Knee Standing AP Bilateral (Not yet reviewed by provider) Interpretation: Performing Lab: Notes/Report: Patient Name: Carlos Locke EXAM: XR Knee Standing AP BilateralXR KNEE LEFT (3 VIEWS) (Not yet reviewed by provider) Interpretation: Performing Lab: Notes/Report: EXAM: XR KNEE LEFT (3 VIEWS) Performed at: [place] [address] Reason For Referral Reason NO PRIOR AUTH REQUIR ED ANTHEM...NOT SCHED...PLEASE PRECERT LEFT KNEE MRI WITH EDEN AND NEPHTY PROTOCOL AT [facility] Diagnosis 1 Primary osteoarthrit is of left knee (M17.12) Diagnosis 2 Pain in left knee (M 25.562) Referral Organization [facility] Referring Provider First Name Daniele Referring Provider Last Name Anthony Referring Provider Speciality Orthopedic Surgery Referred Organization [facility] Radiology Dept . Referred Provider Daniele Valencia Referred Address [address] [place] [address], Referred Provider Specialty Orthopedic S urgery Procedure 1 MRI Joint Lower Ext w/o Dye ([id number]) General Notes Ismael Mariee 2023 10:22:15 AM >, Bell Avendano 06/23/2024 03:49:25 PM > PENDING WITH [facility]. FORM AND CLINICALS FAXED. FORM IN CHART.Juan Alberto Amber 06/25/2024 08:14:25 AM > NO PRIOR AUTH REQUIRED PER FAX FROM [facility]. REF IN CHART. PER AVAILITY, LILIAN IS ACTIVE OF 07/14/2022. FAXED TO [facility].Kodi Tricia 06/28/2024 06:56:53 AM >ORDERS FAXED Referral Priority Routine Reason APPROVED ANTHEM... 08/09...PLEASE PRECERT LEFT TOTAL KNEE REPLACEMENT WITH EDEN AND NEPHEW AT [facility] Diagnosis 1 Primary osteoarthrit is of left knee (M17.12) Referral Organization [facility] Referring Provider First Name Daniele Referring Provider Last Name Anthony Referring Provider Speciality Orthopedic Surgery Referred Organization [facility] Referred Provider Daniele Valencia Referred Address [address] [place], [place],[address],[place] Referred Provider Specialty Orthopedic S urgery Procedure 1 Arthroplasty Knee To clare Med/Lat Compartments (35934) General Notes Ismael Mariee 2024 09:43:18 AM >, Bell Avendano 07/23/2024 12:38:24 PM > AUTH IS PENDING WITH [facility]. FORM AND CLINICALS WERE FAXED. FORM IN CHART., Bell Avendano 07/26/2024 02:03:05 PM > AUTH WAS APPROVED PER [facility]. APPROVED DATES ARE FROM 07/23/2024-09/20/2024. AUTH #[id number]. AUTH IN CHART. PER AVAILITYLILIAN IS ACTIVE OF 07/14/2022. FAXED TO [facility]. Referral Priority Routine Medications Medication SIG (Take, [...] in the past year?Monthly or less (1 point)Uduxfq4LnllubsnjynhrkArchdpkf Tobacco Control (Standard) Question Answer Notes Tobacco use: Nonsmoker Problems Problem Type SNOMED Code ICD Code Onset Dates Problem Status W/U Status Risk Notes Problem 806271752 Aftercare following joint re placement surgery (Z47.1) BrvevlydvyoccviRckjaog6609938969Reyd in right knee (M25.561)Activeconfirmed Bzpsaxp413500512997652Zwehohl osteoarthritis of left knee (M17.12)Active jyzsxjegcMxqirgd697798631277890Tmbx in left knee (M25.562)ActiveconfirmedProblem 182449009257Oihqfxii of left artificial knee joint (Z96.652)Activeconfirmed Inrbqyq206181958Numwrhu osteoarthritis of knees, bilateral (M17.0)Active confirmed Vital Signs Height 6'1 in 01/31/2025 Awggdr807 lbs5BMI37.9901/31/2025 Encounters Encounter Location Date Provider Diagnosis [facility] [address] [place] [address] 06/21/2024 Daniele Valencia Pain in right knee M25.561 ; Pain in left knee M25.562 and Primary osteoarthritis of left knee M17.12 [facility] [address] [place] [address] 07/26/2024 Daniele Anthony Primary osteoarthrit is of left knee M17.12 [facility] [address] [place] [address] 08/23/2024 Daniele Valencia Primary osteoarthrit is of left knee M17.12 [facility] [address] [place] [address] 09/06/2024 Daniele Valencia Aftercare following joint replacement surgery Z47.1 and Presence of left artificial knee joint Z96.652 [facility] [address] [place] [address] 10/04/2024 Daniele Valencia Aftercare following joint replacement surgery Z47.1 and Presence of left artificial knee joint Z96.652 [facility] [address] [place] [address] 12/20/2024 Daniele Valencia Aftercare following joint replacement surgery Z47.1 and Presence of left artificial knee joint Z96.652 [facility] [address] [facility] [place] [address] 01/31/2025 Daniele Valencia Aftercare following joint replacement surgery Z47.1 and Presence of left artificial knee joint Z96.652 [facility] [address] [place] [address] 06/08/2024 [facility] [place] [address]/ Daniele [facility] [place] [address]/04/2025[facility] of [facility] M17.12 ; Presence of left artificial knee joint Z96.652 and Aftercare following joint replacement surgery Z47.1[facility] [place] [address]/Dylan ToledoAftercare following joint replacement surgery Z47.1[facility] [place] [address]/09/2024Dylan ToledoAftercare following joint replacement surgery Z47.1 Assessments Encounter Date Diagnosis (ICD Code) Assessment Notes Treatment Notes Treatment Clinical Notes Section Notes 06/21/2024 Pain in right knee (ICD-10 - M25 .561) Left knee pedzghmyllssdj83/09/2024ain in left knee (ICD-10 - M25.562)Left knee kmanahytebgbsi47/13/2025Primary osteoarthritis of left knee (ICD-10 - M17.12) Left knee renzsqllqwoust73/10/2025Primary osteoarthritis of left knee (ICD-10 - M17.12)08/23/2024Primary osteoarthritis of left knee (ICD-10 - M17.12)08/23/2024 Presence of left artificial knee joint (ICD-10 - Z96.652)08/26/2024ftercare following joint replacement surgery (ICD-10 - Z47.1)09/06/2024ftercare following joint replacement surgery (ICD-10 - Z47.1)Status post left total knee nhrillwvhogk30/03/2025ftercare following joint replacement surgery (ICD-10 - Z47.1)10/04/2024ftercare following joint replacement surgery (ICD-10 - Z47.1) Status post left total knee yjphlkmelpld07/09/2025ftercare following joint replacement surgery (ICD-10 - Z47.1)Status post left total knee arthroplasty. 5Aftercare following joint replacement surgery (ICD-10 - Z47.1)Right knee OA01/31/2025Presence of left artificial knee joint (ICD-10 - Z96.652)Right knee OA12/20/2024Presence of left artificial knee joint (ICD-10 - Z96.652)Status post left total knee arthroplasty.10/04/2024Presence of left artificial knee joint (ICD-10 - Z96.652)Status post left total knee wedzjfwpegdo65/24/2025 Presence of left artificial knee joint (ICD-10 - Z96.652)Status post left total knee oleqoobgabhv05/10/2025ftercare following joint replacement surgery (ICD-10 - Z47.1)06/21/2024rimary osteoarthritis of left knee (ICD-10 - M17.12)Left knee aciapskbvumzeh83/09/2024OtherI discussion with the patient regarding his left [...] from his PCP and repeat A1c.Left knee amlizjdhiiplsh05/13/2025OtherPatient is a 68-year-old male presenting today for his left knee osteoarthritis. He is exhausted con servative management. Do believe total knee arthroplasty can provide him with some benefit. Discussed risk and benefits of surgery in detail. No guarantees send and signed in the office today. Plan for left total knee arthroplasty.Left knee kmiahyryjuopqa02/24/2025OtherPatient overall doing very well today in regard to his left total knee arthroplasty. Mobilizing quite well. Range of motion he is fairly stiff but overall progressing appropriately. Continue DVT prophylaxis. Follow-up in 1 month for clinical exam no x-rays.Status post left total knee tzmoqntqakva18/24/2025OtherPatient doing well today 6 weeks postop. Range of motion improving. Continue with aggressive PT. He may start to drive. Will see him back in the office in 6 weeks with x-raysStatus post left total knee mwnozdvozslu44/09/2025OtherPatient doing quite well today in regards to [...] Order Date Knee, left 3v AP, Lat, [place] - 97287 0 01/31/2025 PT - Evaluate and Treat, as directed, 2 - 3 times a week x 4 - 6 weeks 07/26/2024 XR Foreign Body Loc Eye Bilateral 2024 XR Knee 1 or 2 Views Left 07/23/2024 XR Knee Standing AP Bilateral 07/26/2024 XR Knee Standing AP Bilateral 07/26/2024 SCC- KNEE 4 VIEW LEFT-07459 06/21/2024 XR KNEE LEFT (3 VIEWS) 01/31/2025 SCC- KNEE 4 VIEW RIGHT 12096 06/21/2024 SCC- KNEE 2 VIEW LEFT - 86431 09/06/2024 SCC- KNEE 2 VIEW LEFT - 19396 10/04/2024 SCC- KNEE 2 VIEW LEFT - 29781 12/20/2024 MRI Knee Surg.Navigate or Plan ONLY Left 07/23/2024 Hip to ankle Lt -54317 visioneer 024 MRI : Knee, Left. [employer] shanita including long leg films 71168 06/21/2024 Insurance Providers Payer Name Payer Address Payer Phone Subscriber Number Group Number Insured Name Patient Relationship to Insured Coverage Start Date Coverage End Date [place] [address] [place] [address] [id number] ILA LOCKE Spouse - patient is the spouse of the insured 5 Medications Administered Medication Instructions Date of Administration Dosage Notes BUPIVACAINE mLDepo-Rjzdfb94 hQpapdrebxz21/26/20244 mL
--- OUTSIDE RECORDS SUMMARY | 2025-05-18 08:20 | XMS_ITS | Patient Health Record ---
Author Organization [facility] in [place] Address [address] [place] [address] Care Team Providers Care Fire Extinguisher Inspector Name Role Phone None, Unknown or Primary Care Provider Unavailab James Gutierrez Unavailable [phone] Allergies Allergen (clinical drug ingredient) Drug/Non Drug Allergy documented on EMR Reaction Allergy Type Onset Date Status oxycodone Oxycodone Unknown Drug Allergy Active Results Component Value Reference Range Notes PROF CHEM 8 (BAS METB) Reviewed date:08/24/2024 12:52:49 PM Interpretation: Performing Lab: Notes/Report: [facility] , Sodium 143 136-145 mmol/L Potassium4.73.5-5.1 mmol/IUndvujgr31373-873 mmol/LCarbon Vbgijfp23.421.0-32.0 mmol/LAnion Gap14.0Bsbpoqw28852-387 mg/dLBlood Urea Jfgkgbkm95.07.0-18.0 mg/dL Creatinine1.620.70-1.30 mg/dLEstimated GFR ( Iwznvjo60>=60 mL/min/1.73m 2 Estimated GFR (Non- Ame43>=60 mL/min/1.73m 2BUN Creatinine Ratio17.3 Calcium7.78.5-10.1 mg/dLPerforming Lab:see noteML - [facility] LBCBC AUTO DIFF Reviewed date:08/24/2024 12:52:49 PM Interpretation: Performing Lab: Notes/Report: [facility] ,White Blood Count13.84.0-11.0 10 3/uLRed Blood Count3.504.70-6.10 10 6/uL Kvovkqmgah89.514.0-18.0 g/fSPblikqpteb76.842.0-54.0 %Mean Corpuscular Kjzatk31.4 80.0-94.0 fLMean Corpuscular Eehavoyaes78.925.9-34.0 pgMean Corpuscular HGB Conc 33.029.9-35.2 g/dLRed Cell Distribution Width13.711.0-15.0 %Platelet Ipjdu194 150-450 10 3/uLMean Platelet Volume9.29.5-13.5 fLNeutrophils Percent Auto81.1 43.0-75.0 %Lymphocytes Percent Auto8.920.5-60.0 %Monocytes Percent Auto9.11.7- 12.0 %Eosinophils Percent Auto0.10.9-7.0 %Basophils Percent Auto0.10.2-2.0 % Immature Granulocytes Pct Auto0.70.0-0.5 %Neutrophils Absolute Auto11.21.4-6.5 10 3/uLLymphocytes Absolute Auto1.21.2-3.8 10 3/uLMonocytes Absolute Auto1.30.3- 0.8 10 3/uLEosinophils Absolute Auto0.00.0-0.7 10 3/uLBasophils Absolute Auto0.0 0.0-0.1 10 3/uLImmature Granulocytes Abs Auto0.090.00-0.03 10 3/uLPerforming Lab:see noteML - [facility] Reason For Referral No Information Medications [...] due t o type 2 diabetes mellitus (610686591) Type 2 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) ActiveconfirmedProblemFoot ulcer due to type 2 diabetes mellitus (8415233337045) Type 2 diabetes mellitus with foot ulcer (E11.621)ActiveconfirmedProblemAcquired hallux valgus (90336664)Hallux valgus (acquired), left foot (M20.12)Active confirmedProblemAcquired hallux rigidus (6565833)Hallux rigidus, left foot (M20.22)ActiveconfirmedProblemPseudarthrosis after fusion or arthrodesis (931931624)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)Activeconfirmed ProblemPain associated with internal prosthetic device (disorder) (242290024) Pain due to internal orthopedic prosthetic devices, implants and grafts, initial encounter (T84.84XA)ActiveconfirmedProblemHistory of arthrodesis (239764623) Arthrodesis status (Z98.1)ActiveconfirmedProblemAcquired hallux rigidus (9248961)Acquired hallux rigidus of left foot (M20.22)ActiveconfirmedProblem Delayed healing of surgical wound (finding) (435053782)Delayed surgical wound healing (T81.89XA)ActiveconfirmedProblemPolyneuropathy due to type 2 diabetes mellitus (312521114)Diabetes mellitus with polyneuropathy (E11.42)Active confirmedProblemChronic foot ulcer, [...] ACCESS PPO PLUS LOCAL PLAN [address] [place] [address] [id number] Ilya Kanwal Spouse - patient is the spouse of the insured 3 [place] [id number] Part A OnlyLance Caraballof - patient is [...]
--- OUTSIDE RECORDS SUMMARY | 2025-05-18 08:20 | XMS_ITS | Encounter Summary ---
Author Organization [facility] Address [address] [place] [address] Care Team Providers Care Case Management Manager Name Role Phone Tulio Madrid MD Primary Care Provider [phone] Tulio Madrid MD Unavailable Tulio Madrid MD Primary Care Provider [phone] Encounter Details DateTypeDepartmentCare Team (Latest Contact Info)Ofwcohvrkyx15/23/2023Clinisync Result Encounter [facility] External Department Unsolicited Provider, Generic External Data Social History Tobacco UseTypesPacks/DayYears UsedDateSmoking Tobacco: NeverSmokeless Tobacco: NeverSex and Gender InformationValueDate RecordedSex Assigned at BirthNot on fileLegal EkkBmib8109/25/2022 7:24 PM EDTGender IdentityNot on fileSexual OrientationNot [...] EST Narrative 07/05/2023 1:54 AM EST [facility] ?[address] ? [place] [address] ? CT Scan Report ? Signed ? Patient: CORNELIA,WARNER C ?MR#: [id number] ?? : 1955 ?Acct:[id number] ?? Age/Sex: 67 / M ?ADM Date: 12/22/23 ?? Loc: CT ? Attending Dr: James Raya D.P.M. ? Ordering Physician: James Raya D.P.M. ?? Date of Service: 07/04/23 ?? Procedure(s): CT foot LT wo con ?? Accession Number(s): [id number] ? cc: Tulio Madrid M.D. ? [facility] ? [address] ? [place] [address] ? Patient Name: ?? WARNER Farrar CORNELIA ? MRN: [facility]:[id number] ? date: 1955 ?Sex: M ?? Assigned Patient Location: CT ?? Current Patient Location: ? Accession/Order Number: [id number] ?? Exam Date: 07/04/2023 ??10:18 ?Report Date: [...] of the screws. ? Electronically authenticated by: AKAHS ??BIB ?? Date: 07/05/2023 ??01:52 ? Dictated By: ?Akash Kenny M.D. ? Signed By: ?07/05/23 0154 ? DD/ 0152 ? TD/TT: ? Artificial Stone Setter: Procedure Note Radiology, Radiologist, - 07/05/2023 [place] [address] CT Scan Report Signed Patient: WARNER LOCKE CMR#: [id number] : 1955cct:[id number] Age/Sex: 67 / MADM Date: 07/04/23 Loc: CT Attending Dr: James Raya D.P.M. Ordering Physician: James Raya D.P.M. Date of Service: 07/04/23 Procedure(s): CT foot LT wo con Accession Number(s): [id number] cc: Tulio Madrid M.D. The [place] [address] Patient Name: WARNER LOCKE MRN: [id number] date: 1955 Sex: M Assigned Patient Location: CT Current Patient Location: Accession/Order Number: [id number] Exam Date: 07/04/2023 10:18 Report Date: 07/05/2023 [...] Kenny M.D. Signed By:07/05/23153 DD/ 1 TD/TT: Artificial Stone Setter: Authorizing ProviderResult TypeResult StatusGeneric External Data Provider CLINISYNC IMAGINGFinal Result documented in this encounter Visit Diagnoses Not on filedocumented in this encounter Care Teams Team MemberRelationshipSpecialtyStart DateEnd Date Tulio Madrid MD PCP - GeneralFamily Medicine Tulio Madrid MD [address] [place] [address] [facility] Tulio Madrid MD [address] [place] [address] [facility] - [facility]01/12/24documented as of this encounter
--- OUTSIDE RECORDS SUMMARY | 2025-05-18 08:21 | XMS_ITS | Encounter Summary ---
Author Organization [facility] Address [address] [place] [address] Care Team Providers Care Gaggerman Name Role Phone Tulio Madrid MD Primary Care Provider [phone] Encounter Details DateTypeDepartmentCare Team (Latest Contact Info)Ueklhlyagxu30/16/2024Clinisync Result Encounter [facility] External Department Unsolicited Provider, Generic External Data Social History Tobacco UseTypesPacks/DayYears UsedDateSmoking Tobacco: NeverSmokeless Tobacco: NeverSex and Gender InformationValueDate RecordedSex Assigned at BirthNot on fileLegal LufNvdh4109/25/2022 7:24 PM EDTGender IdentityNot on fileSexual OrientationNot on filedocumented as of this encounter Plan of Treatment Not on file documented as of this encounter Procedures Procedure NamePriorityDate/TimeAssociated DiagnosisCommentsCA ECHO DOPPLER XYZYBVEI81/16/2024 5:49 PM EST documented in this encounter Results * CA ECHO DOPPLER COMPLETE (06/28/2024 5:49 PM EST)Anatomical RegionLaterality ModalityOtherSpecimen (Source)Anatomical Location / LateralityCollection Method / VolumeCollection TimeReceived Time06/28/2024 5:49 PM EST Narrative 06/28/2024 5:50 PM EST [facility] ?[address] ? [place] [address] ? Cardiology Report ? Signed ? Patient: CORNELIA,WARNER C ?MR#: [id number] ?? : 1955 ?Acct:[id number] ?? Age/Sex: 68 / M ?ADM Date: 12/16/24 ?? Loc: CARD ? Attending Dr: Ken Mercer M.D. ? Ordering Physician: Ken Mercer M.D. ?? Date of Service: 06/28/24 ?? Procedure(s): CA echo doppler complete ?? Accession Number(s): [id number] ? cc: Ken Mercer M.D.; Tulio Madrid M.D. ? Patient Name: ? WARNER CORNELIA ? MR#: [id number] ? : 1955 ? Exam Date: 06/28/2024 [...] 1750 ? DD/ 1749 ? TD/TT: ? Harness Installer: Procedure Note Radiology, Radiologist, MD - 06/28/[address] [address] Cardiology Report Signed Patient: WARNER LOCKE CMR#: [id number] : 7Acct:[id number] Age/Sex: 68 / MADM Date: 06/28/24 Loc: CARD Attending Dr: Ken Mercer M.D. Ordering Physician: Ken Mercer M.D. Date of Service: 06/28/24 Procedure(s): CA echo doppler complete Accession Number(s): [id number] cc: Ken Mercer M.D.; Tulio Madrid M.D. Patient Name: WARNER LOCKE MR#: [id number] : 1955 Exam Date: 06/28/2024 Ordering Doctor: [...] 17:49 Dictated By: SCOUT MCMANUS Signed By:06/28/24 3542 DD/ 6378 TD/TT: Harness Installer: Authorizing ProviderResult TypeResult StatusGeneric External Data Provider CLINISYNC IMAGINGFinal Result documented in this encounter Visit Diagnoses Not on filedocumented in this encounter Care Teams Team MemberRelationshipSpecialtyStart DateEnd Date Tulio Madrid MD PCP - GeneralFamily Medicine01/12/24documented as of this encounter
--- OUTSIDE RECORDS SUMMARY | 2025-05-18 08:21 | XMS_ITS | Encounter Summary ---
Author Organization [facility] Address [address] [place] [address] Care Team Providers Care Crusher And Binder Operator Name Role Phone Tulio Madrid MD Primary Care Provider [phone] Tulio Madrid MD Unavailable Tulio Madrid MD Primary Care Provider [phone] Encounter Details DateTypeDepartmentCare Team (Latest Contact Info)Cbuofawxhbq38/20/2023Clinisync Result Encounter [facility] External Department Unsolicited Provider, Generic External Data Social History Tobacco UseTypesPacks/DayYears UsedDateSmoking Tobacco: NeverSmokeless Tobacco: NeverSex and Gender InformationValueDate RecordedSex Assigned at BirthNot on fileLegal HqpHnaa3009/25/2022 7:24 PM EDTGender IdentityNot on fileSexual OrientationNot [...] EST Narrative 07/02/2023 10:38 AM EST [facility] ?[address] ? [place] [address] ?XRay Report ? Signed ? Patient: CORNELIA,CARLOS C ?MR#: [id number] ?? : 1955 ?Acct:[id number] ?? Age/Sex: 67 / M ?ADM Date: 12/20/23 ?? Loc: RAD ? Attending Dr: Tonio Raya D.P.M. ? Ordering Physician: Tonio Raya D.P.M. ?? Date of Service: 07/02/23 ?? Procedure(s): XR foot LT min 3V ?? Accession Number(s): [id number] ? cc: Tonio Raya D.P.M.; Tulio Madrid M.D. ? [facility] ? [address] ? [place] [address] ? Patient Name: ?? CARLOS Farrar CORNELIA ? MRN: [facility]:[id number] ? date: 1955 ?Sex: M ?? Assigned Patient Location: RAD ?? Current Patient Location: RAD ?? Accession/Order Number: [id number] ?? Exam Date: 07/02/2023 ??08:44 ?Report Date: [...] 1038 ? DD/ 1035 ? TD/TT: ? Mult Au Matic Operator: Procedure Note Radiology, Radiologist, - 07/02/2023 [place] [address] XRay Report Signed Patient: CARLOS LOCKE CMR#: [id number] : 1955cct:[id number] Age/Sex: 67 / MADM Date: 07/02/23 Loc: RAD Attending Dr: Tonio Raya D.P.M. Ordering Physician: Tonio Raya D.P.M. Date of Service: 07/02/23 Procedure(s): XR foot LT min 3V Accession Number(s): [id number] cc: Tonio Raya D.P.M.; Tulio Madrid M.D. The [place] [id number] Patient Name: CARLOS LOCKE MRN: [facility]:[id number] date: 1955 Sex: M Assigned Patient Location: [facility] Current Patient Location: [facility] Accession/Order Number: [id number] Exam Date: 07/02/2023 08:44 Report Date: 07/02/2023 [...] M.D. Signed By:07/02/23 1038 DD/ 1035 TD/TT: Mult Au Matic Operator: Authorizing ProviderResult TypeResult StatusGeneric External Data Provider CLINISYNC IMAGINGFinal Result documented in this encounter Visit Diagnoses Not on filedocumented in this encounter Care Teams Team MemberRelationshipSpecialtyStart DateEnd Date Tulio Madrid MD PCP - GeneralFamily Medicine Tulio Madrid MD [address] [place] [address] PCP - [facility]04/13/2311 Tulio Madrid MD [address] [place] [address] PCP - GeneralFamily Medicine01/12/24documented as of this encounter
--- OUTSIDE RECORDS SUMMARY | 2025-05-18 08:21 | XMS_ITS | Encounter Summary ---
Author Organization [facility] Address [address] [place] [address] Care Team Providers Care Pasting Machine Operator Name Role Phone Tulio Madrid MD Primary Care Provider [phone] Encounter Details DateTypeDepartmentCare Team (Latest Contact Info)Egitjukufau96/11/2024Clinisync Result Encounter [facility] External Department Unsolicited Provider, Generic External Data Social History Tobacco UseTypesPacks/DayYears UsedDateSmoking Tobacco: NeverSmokeless Tobacco: NeverSex and Gender InformationValueDate RecordedSex Assigned at BirthNot on fileLegal BzcHywd3809/25/2022 7:24 PM EDTGender IdentityNot on fileSexual OrientationNot on filedocumented as of this encounter Plan of Treatment Not on file documented as of this encounter Procedures Procedure NamePriorityDate/TimeAssociated DiagnosisCommentsXR KNEE 4+ VIEWS FQTUNHBYJ04/11/2024 6:16 AM EST documented in this encounter Results * XR knee 4+ views bilateral (06/23/2024 6:16 AM EST)Anatomical RegionLaterality ModalityLower Extremities, KneeBilateralRadiographic ImagingSpecimen (Source) Anatomical Location / LateralityCollection Method / VolumeCollection Time Received Time06/23/2024 6:16 AM EST Narrative 06/23/2024 6:19 AM EST [facility] ?[address] ? [place] [address] ?XRay Report ? Signed ? Patient: CORNELIA,WARNER C ?MR#: [id number] ?? : 1955 ?Acct:[id number] ?? Age/Sex: 68 / M ?ADM Date: 12/09/24 ?? Loc: EC ? Attending Dr: Daniele Valencia M.D. ? Ordering Physician: Daniele Valencia M.D. ?? Date of Service: 06/21/24 ?? Procedure(s): XR knee MARIE 4V ?? Accession Number(s): [id number] ? cc: Daniele Valencia M.D.; Tulio Madrid M.D. ? [facility] ? [address] ? [place] [address] ? Patient Name: ?? WARNER Farrar CORNELIA ? MRN: [facility]:[id number] ? date: 1955 ?Sex: M ?? Assigned Patient Location: EC ?? Current Patient Location: ? Accession/Order Number: [id number] ?? Exam Date: 06/21/2024 ??13:16 ?Report Date: 06/23/2024 ??06:16 ? At the request of: ?? DANIELE VALENCIA ? Procedure: ??XR knee MARIE 4V ? EXAMINATION: XR knee MARIE 4V ? HISTORY: BILATERAL KNEE PAIN ? COMPARISON: XR knee bilateral 03/24/2023 ? FINDINGS: ? RIGHT FINDINGS: ?? BONES: Marked narrowing of the medial joint space with khsa-ck-pcos ?? articulation. Periarticular degenerative osteophytes involving all 3 ?? compartments; large involving the medial compartment. ?? SOFT TISSUES: No visible soft tissue swelling. ?? OTHER: Small joint effusion. ? LEFT FINDINGS: ?? BONES: Marked narrowing of the medial joint space with mrxf-la-ldgu ?? articulation. Periarticular degenerative osteophytes involving all [...] 0619 ? DD/ 0616 ? TD/TT: ? Report Clerk: Procedure Note Radiology, Radiologist, MD - 12/11/[address] [address] XRay Report Signed Patient: WARNER LOCKE CMR#: [id number] : 1955cct:[id number] Age/Sex: 68 / MADM Date: 06/21/24 Loc: EC Attending Dr: Daniele Valencia M.D. Ordering Physician: Daniele Valencia M.D. Date of Service: 06/21/24 Procedure(s): XR knee MARIE 4V Accession Number(s): [id number] cc: Daniele Valencia M.D.; Tulio Madrid M.D. The [place] [address] Patient Name: WARNER LOCKE MRN: [facility]:[id number] date: 1955 Sex: M Assigned Patient Location: Current Patient Location: Accession/Order Number: [id number] Exam Date: 06/21/2024 13:16 Report Date: 06/23/2024 06:16 At the request of: DANIELE VALENCIA Procedure: XR knee MARIE 4V EXAMINATION: XR knee MARIE 4V HISTORY: BILATERAL KNEE PAIN COMPARISON: XR knee bilateral 03/24/2023 FINDINGS: RIGHT FINDINGS: BONES: Marked narrowing of the medial joint space with ncwo-jd-mcaf articulation. 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 SOFT TISSUES: No visible soft tissue swelling. OTHER: Small joint effusion. LEFT FINDINGS: BONES: Marked narrowing of the medial joint space with xdll-tm-vibk articulation. Periarticular degenerative osteophytes involving all 3 [...] Kenny M.D. Signed By:06/23/24618 DD/ 5 TD/TT: Report Clerk: Authorizing ProviderResult TypeResult StatusGeneric External Data ProviderIMG XR PROCEDURESFinal Result documented in this encounter Visit Diagnoses Not on filedocumented in this encounter Care Teams Team MemberRelationshipSpecialtyStart DateEnd Date Tulio Madrid MD PCP - GeneralFamily Medicine01/12/24documented as of this encounter
--- OUTSIDE RECORDS SUMMARY | 2025-05-18 08:21 | XMS_ITS | Encounter Summary ---
Author Organization [facility] Address [address] [place] [address] Care Team Providers Care Infection Preventionist Name Role Phone Tulio Madrid MD Unavailable Tulio Madrid MD Primary Care Provider [phone] Encounter Details DateTypeDepartmentCare Team (Latest Contact Info)Neoyadlqlah53/01/2024Clinisync Result Encounter [facility] External Department Unsolicited Provider, Generic External Data Social History Tobacco UseTypesPacks/DayYears UsedDateSmoking Tobacco: NeverSmokeless Tobacco: NeverSex and Gender InformationValueDate RecordedSex Assigned at BirthNot on fileLegal VqkWkhp4209/25/2022 7:24 PM EDTGender IdentityNot on fileSexual OrientationNot [...] EDT Narrative 02/12/2024 6:26 AM EDT [facility] ?[address] ? [place] [address] ?XRay Report ? Signed ? Patient: CORNELIA,WARNER C ?MR#: [id number] ?? : 1955 ?Acct:[id number] ?? Age/Sex: 68 / M ?ADM Date: 07/31/24 ?? Loc: EC ? Attending Dr: James Raya D.P.M. ? Ordering Physician: James Raya D.P.M. ?? Date of Service: 02/11/24 ?? Procedure(s): XR foot LT min 3V ?? Accession Number(s): [id number] ? cc: James Raya D.P.M.; Tulio Madrid M.D. ? [facility] ? [address] ? [place] [address] ? Patient Name: ?? WARNER Farrar CORNELIA ? MRN: [facility]:[id number] ? date: 1955 ?Sex: M ?? Assigned Patient Location: EC ?? Current Patient Location: ? Accession/Order Number: [id number] ?? Exam Date: 02/11/2024 ??10:36 ?Report Date: [...] ?02/12/24625 ? DD/ 3 ? TD/TT: ? Supervising Deputy: Procedure Note Radiology, Radiologist, MD - 02/12/[address] [address] XRay Report Signed Patient: WARNER LOCKE CMR#: [id number] : 1955cct:[id number] Age/Sex: 68 / MADM Date: 02/11/24 Loc: EC Attending Dr: James Raya D.P.M. Ordering Physician: James Raya D.P.M. Date of Service: 02/11/24 Procedure(s): XR foot LT min 3V Accession Number(s): [id number] cc: James Raya D.P.M.; Tulio Madrid M.D. [place] [address] Patient Name: WARNER LOCKE MRN: [facility]:[id number] date: 1955 Sex: M Assigned Patient Location: EC Current Patient Location: Accession/Order Number: [id number] Exam Date: 02/11/2024 10:36 Report Date: 02/12/2024 [...] Kenny M.D. Signed By:02/12/24625 DD/ 3 TD/TT: Supervising Deputy: Authorizing ProviderResult TypeResult StatusGeneric External Data Provider CLINISYNC IMAGINGFinal Result documented in this encounter Visit Diagnoses Not on filedocumented in this encounter Care Teams Team MemberRelationshipSpecialtyStart DateEnd Date Tulio Madrid MD [address] [place] [address] [facility] Tulio Madrid MD [address] [place] [address] [facility] - [facility]/12/24documented as of this encounter
--- OUTSIDE RECORDS SUMMARY | 2025-05-18 08:21 | XMS_ITS | Encounter Summary ---
Author Organization [facility] Address [address] [place] [address] Care Team Providers Care Optical Technician Name Role Phone Tulio Madrid MD Primary Care Provider [phone] Encounter Details DateTypeDepartmentCare Team (Latest Contact Info)Lbvkxikthpe34/07/2025linisync Result Encounter [facility] External Department Unsolicited Provider, Generic External Data Social History Tobacco UseTypesPacks/DayYears UsedDateSmoking Tobacco: NeverSmokeless Tobacco: NeverSex and Gender InformationValueDate RecordedSex Assigned at BirthNot on fileLegal ZfbCiyd7609/25/2022 7:24 PM EDTGender IdentityNot on fileSexual OrientationNot [...] EST Narrative 07/20/2024 5:07 PM EST [facility] ?[address] ? [place] [address] ?XRay Report ? Signed ? Patient: CORNELIA,WARNER Farrar ?MR#: [id number] ?? : 1955 ?Acct:[id number] ?? Age/Sex: 68 / M ?ADM Date: 07/20/ ?? Loc: PST ? Attending Dr: Daniele Valencia M.D. ? Ordering Physician: Daniele Valencia M.D. ?? Date of Service: 07/20/24 ?? Procedure(s): XR chest 2V ?? Accession Number(s): [id number] ? cc: Daniele Valencia M.D.; Tulio Madrid M.D. ? [facility] ? [address] ? [place] [address] ? Patient Name: ?? WARNER Farrar CORNELIA ? MRN: [facility]:[id number] ? date: 1955 ?Sex: M ?? Assigned Patient Location: [facility] ?? Current Patient Location: LAB ?? Accession/Order Number: [id number] ?? Exam Date: 07/20/2024 ??10:06 ?Report Date: [...] 1707 ? DD/ 04 ? TD/TT: ? Cook Fry: Procedure Note Radiology, Radiologist, - 07/20/2024 [place] [address] XRay Report Signed Patient: WARNER LOCKE CMR#: [id number] : 1955cct:[id number] Age/Sex: 68 / MADM Date: 07/20/24 Loc: PST Attending Dr: Daniele Valencia M.D. Ordering Physician: Daniele Valencia M.D. Date of Service: 07/20/24 Procedure(s): XR chest 2V Accession Number(s): [id number] cc: Daniele Valencia M.D.; Tulio Madrid M.D. The [address] [address] Patient Name: WARNER LOCKE MRN: [facility]:[id number] date: 1955 Sex: M Assigned Patient Location: [facility] Current Patient Location: LAB Accession/Order Number: [id number] Exam Date: 07/20/2024 10:06 Report Date: 07/20/2024 [...] Mcarthur M.D. Signed By:07/20/241706 DD/ 04 TD/TT: Cook Fry: Authorizing ProviderResult TypeResult StatusGeneric External Data Provider CLINISYNC IMAGINGFinal Result documented in this encounter Visit Diagnoses Not on filedocumented in this encounter Care Teams Team MemberRelationshipSpecialtyStart DateEnd Date Tulio Madrid MD PCP - GeneralFamily Medicine01/12/24documented as of this encounter
--- OUTSIDE RECORDS SUMMARY | 2025-05-18 08:21 | XMS_ITS | Encounter Summary ---
Author Organization [facility] Address [address] [place] [address] Care Team Providers Care Manager Fine Name Role Phone Tulio Madrid MD Unavailable Tulio Madrid MD Primary Care Provider [phone] Encounter Details DateTypeDepartmentCare Team (Latest Contact Info)Qduzxzcmnpp29/05/2024Clinisync Result Encounter [facility] External Department Unsolicited Provider, Generic External Data Social History Tobacco UseTypesPacks/DayYears UsedDateSmoking Tobacco: NeverSmokeless Tobacco: NeverSex and Gender InformationValueDate RecordedSex Assigned at BirthNot on fileLegal IpiPltc4209/25/2022 7:24 PM EDTGender IdentityNot on fileSexual OrientationNot [...] EST Narrative 05/18/2024 6:56 AM EST [facility] ?[address] ? [place] [address] ?XRay Report ? Signed ? Patient: CORNELIA,CARLOS C ?MR#: [id number] ?? : 1955 ?Acct:[id number] ?? Age/Sex: 68 / M ?ADM Date: 11/04/24 ?? Loc: RAD ? Attending Dr: Liz MARTELL ? Ordering Physician: Liz Hernandez ?? Date of Service: 05/17/24 ?? Procedure(s): XR abdomen 1V ?? Accession Number(s): [id number] ? cc: Tulio Madrid M.D.; Liz Hernandez ? [facility] ? [address] ? [place] [address] ? Patient Name: ?? CARLOS LOCKE ? MRN: [facility]:[id number] ? date: 1955 ?Sex: M ?? Assigned Patient Location: RAD ?? Current Patient Location: ? Accession/Order Number: [id number] ?? Exam Date: 05/17/2024 ??08:50 ?Report Date: [...] 0656 ? DD/ 06 ? TD/TT: ? Biofuels Plant Manager: Procedure Note Radiology, Radiologist, MD - 05/18/[address] [address] XRay Report Signed Patient: CARLOS LOCKE CMR#: [id number] : 7Acct:[id number] Age/Sex: 68 / MADM Date: 05/17/24 Loc: RAD Attending Dr: Liz MARTELL Ordering Physician: Liz Hernandez Date of Service: 05/17/24 Procedure(s): XR abdomen 1V Accession Number(s): [id number] cc: Tulio Madrid M.D.; Liz Hernandez [address] [address] Patient Name: CARLOS LOCKE MRN: [facility]:[id number] date: 1955 Sex: M Assigned Patient Location: RAD Current Patient Location: Accession/Order Number: [id number] Exam Date: 05/17/2024 08:50 Report Date: 05/18/2024 [...] Racheal Graves M.D. Signed By:05/18/2456 DD/ TD/TT: Biofuels Plant Manager: Authorizing ProviderResult TypeResult StatusGeneric External Data Provider CLINISYNC IMAGINGFinal Result documented in this encounter Visit Diagnoses Not on filedocumented in this encounter Care Teams Team MemberRelationshipSpecialtyStart DateEnd Date Tulio Madrid MD [address] [place] [address] FORREST - Wilfrid Ydosxjclcp04/1/ Tulio Madrid MD [address] [place] [address] [facility] - [facility]01/12/24documented as of this encounter
--- OUTSIDE RECORDS SUMMARY | 2025-05-18 08:21 | XMS_ITS | Encounter Summary ---
Author Organization [facility] Address [address] [place] [address] Care Team Providers Care Optometric Technician Name Role Phone Tulio Madrid MD Primary Care Provider [phone] Tulio Madrid MD Unavailable Tulio Madrid MD Primary Care Provider [phone] Encounter Details DateTypeDepartmentCare Team (Latest Contact Info)Vwrbukvswwu64/28/2024Clinisync Result Encounter [facility] External Department Unsolicited Provider, Generic External Data Social History Tobacco UseTypesPacks/DayYears UsedDateSmoking Tobacco: NeverSmokeless Tobacco: NeverSex and Gender InformationValueDate RecordedSex Assigned at BirthNot on fileLegal FaeQntq1109/25/2022 7:24 PM EDTGender IdentityNot on fileSexual OrientationNot [...] ?[address] ? [place] [address] ?XRay Report ? Signed ? Patient: CORNELIA,WARNER C ?MR#: [id number] ?? : 1955 ?Acct:[id number] ?? Age/Sex: 68 / M ?ADM Date: 03/27/24 ?? Loc: EC ? Attending Dr: James Raya D.P.M. ? Ordering Physician: James Raya D.P.M. ?? Date of Service: 10/08/23 ?? Procedure(s): XR foot LT min 3V ?? Accession Number(s): [id number] ? cc: James Raya D.P.M.; Tulio Madrid M.D. ? [facility] ? [address] ? [place] [address] ? Patient Name: ?? WARNER Farrar CORNELIA ? MRN: [facility]:[id number] ? date: 1955 ?Sex: M ?? Assigned Patient Location: EC ?? Current Patient Location: ? Accession/Order Number: [id number] ?? Exam Date: 10/08/2023 ??08:55 ?Report Date: [...] 0553 ? DD/ 0550 ? TD/TT: ? Associate Scientist: Procedure Note Radiology, Radiologist, MD - 10/09/2023 [place] [address] XRay Report Signed Patient: WARNER LOCKE CMR#: [id number] : 1955cct:[id number] Age/Sex: 68 / MADM Date: 10/08/23 Loc: EC Attending Dr: James Raya D.P.M. Ordering Physician: James Raya D.P.M. Date of Service: 10/08/23 Procedure(s): XR foot LT min 3V Accession Number(s): [id number] cc: James Raya D.P.M.; Tulio Madrid M.D. The [place] [address] Patient Name: WARNER LOCKE MRN: [id number] date: 1955 Sex: M Assigned Patient Location: Current Patient Location: Accession/Order Number: [id number] Exam Date: 10/08/2023 08:55 Report Date: 10/09/2023 [...] M.D. Signed By:10/09/23 0553 DD/ 0550 TD/TT: Associate Scientist: Authorizing ProviderResult TypeResult StatusGeneric External Data Provider CLINISYNC IMAGINGFinal Result documented in this encounter Visit Diagnoses Not on filedocumented in this encounter Care Teams Team MemberRelationshipSpecialtyStart DateEnd Date Tulio Madrid MD PCP - [facility] Tulio Madrid MD [address] [place] [address] PCP - [place] Dkqiemjypx78/1/ Tulio Madrid MD [address] [place] [address] [facility] - [facility]01/12/24documented as of this encounter
--- OUTSIDE RECORDS SUMMARY | 2025-05-18 08:21 | XMS_ITS | Clinical Summary ---
Author Organization [facility] Address [address] [place] [address] Care Team Providers Care Account Liaison Hospice Name Role Phone Tulio Madrid MD Primary Care Provider [phone] Allergies Active AllergyReactionsCriticalityNoted CmixMkzhvadxLfrpjswny92/18/2023 Other Reaction(s): Hyperactive behavior, Other Oxycodone-AcetaminophenItching,CuywIha4007/31/2022 Medications MedicationSigDispense QuantityRefillsLast FilledStart DateEnd DateStatus allopurinol [...] hyperglycemia, without long-term current use of insulin ([facility])TAKE 1 TABLET BY MOUTH EVERY [...] hyperglycemia, without long-term current use of insulin ([facility])INJECT 2 MG SUBCUTANEOUSLY WEEKLY 9 mL 5Active febuxostat (Uloric) 40 MG tablet Indications:Type 2 diabetes mellitus with hyperglycemia, without long-term current use of insulin (HCC),Morbid obesity (CMS-HCC),Polyneuropathy due to type 2 diabetes mellitus ([facility])Take 1 tablet (40 mg) by [...] Indications:Polyneuropathy due to type 2 diabetes mellitus ([facility])TAKE 1 CAPSULE BY MOUTH IN THE MORNING, EVENING AND BEFORE BEDTIME 270 capsule 5Active Active Problems ProblemNoted DateDiagnosed DateEncounter for long-term current use of medication 08/05/2024Screening PSA (prostate specific antigen)08/05/2024Encounter for preoperative fyqnkiuucs75/02/2025 Assessment & Plan (07/15/2024 9:48 AM EST): Able to proceed with upcoming surgery at low risk for complications. History of DM but controlled with medication. No CAD or HTN. Not having chest pain or palpitations. Recommend routine PAT. Seasonal allergic rhinitis due to vzctig2001/12/2024 Assessment & Plan (01/12/2025 9:44 AM EDT): Symptoms controlled with medication and continue. Assessment & Plan (01/12/2024 9:44 AM EDT): Symptoms controlled with medication and continue. Primary nivgwbgt26/01/2024 Assessment & Plan (01/12/2025 9:43 AM EDT): Sleeping well with medication and continue. Assessment & Plan (01/12/2024 9:44 AM EDT): Not sleeping well but wants to continue melatonin. If worsens can try trazodone. Polyneuropathy due to type 2 diabetes kduxopmc77/10/2024 Assessment & Plan (07/15/2024 9:49 AM EST): Neuropathy stable and continue neurontin. Assessment & Plan (01/12/2024 9:44 AM EDT): Neuropathy stable and continue neurontin. Primary osteoarthritis of knees, kempomvuu35/10/2024nnual physical exam 07/23/2023 Assessment & Plan (07/15/2024 [...] daily Aspirin therapy. DDD (degenerative disc disease), lbkwuv6506/26/2023 Assessment & Plan (01/12/2025 9:43 AM EDT): Pain stable and follow with pain management. Assessment & Plan (01/12/2024 9:44 AM EDT): Pain stable and follow with pain management. Comycdrlabxz55/14/2023 Assessment & Plan (07/15/2024 9:51 AM EST): Due for labs. Arthritis, gouty108/27/2022 Assessment & Plan (01/12/2025 9:43 AM EDT): No flares and continue allopurinol. Assessment & Plan (01/12/2024 9:43 AM EDT): No flares and continue allopurinol. Male ojnpvuyqwztu14/14/2023NAFL (nonalcoholic fatty liver)06/26/2023lass 2 severe obesity due [...] with hyperglycemia, without long-term current use of batiive8306/26/2023 Assessment & Plan (01/12/2025 9:44 AM EDT): [...] Stick to ADA diet and limit carbs. Ukmmbovfkyiq91/03/2023ge-related nuclear cataract of both eyes03/10/2023 Resolved Problems ProblemNoted DateDiagnosed DateResolved DateAbscess of abdominal wall10/13/2024 01/12/2025 Assessment & Plan (10/13/2024 1:51 PM EDT): Recent abscess but improved after drainage. Use heat PRN. Treat with bactrim. Cover with neosporin. Encounters DateTypeDepartmentCare ZidgItmmpcoqliv15/24/2025Refill [facility] [address] [place] [address] Tulio Madrid MD 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)from Last 3 Months Family History Medical HistoryRelationNameCommentsCancerFatherDiabetesFatherHypertensionFather DiabetesMotherHypertensionMotherRelationNameStatusCommentsFatherMother Social History Tobacco UseTypesPacks/DayYears UsedDateSmoking Tobacco: NeverSmokeless Tobacco: Never Tobacco Cessation:Counseling Given: Not Answered Sex and Gender InformationValueDate RecordedSex Assigned at BirthNot on file Legal AfhFqzs7909/25/2022 7:24 PM EDTGender IdentityNot on fileSexual Orientation Not on file Last Filed Vital Signs Vital SignReadingTime TakenCommentsBlood Lfkkzyqa159/8407 8:53 AM EDT Fbzsh914401/12/2025 8:53 AM OVSEtewdqifgcq84.2 ??C (97.1 ??F)01/12/2025 8:53 AM EDTRespiratory Urxr385301/12/2025 8:53 AM EDTOxygen Czemdmauut31%01/12/2025 8:53 AM EDTInhaled Oxygen Concentration--Wsmyjs670 kg (293 lb)01/12/2025 8:53 AM EDT Yeedjp101 cm (6' 2 )01/12/2025 8:53 AM EDTBody Mass Index37.62001/12/2025 8:53 AM EDT Plan of Treatment Health MaintenanceDue DateLast DoneCommentsCT Zadxypaxpocb89/09/1956FIT-DNA 1955FIT1955FOBT1955 6459Ncugqnbslflpu40/09/1956Pneumococcal Vaccine: 65+ Years (2 of 2 - PCV)OVID-19 Vaccine (2024- season)/, 04/20/2023, 04/20/2023, Additional history existsInfluenza Vaccine (#1)/01/2024, 04/12/2023, 04/17/2022, Additional history hkrmqqOtwopmpcuqp26/02/202701/08/2016Colorectal Cancer Dmlidmpeb22/02/2027 Insurance Care Teams Team MemberRelationshipSpecialtyStart DateEnd Date Tulio Madrid MD [facility]/12/24
--- NOTE | 2025-05-18 08:47 | PM.CN ---
Consult Note: HPI Data of Consult Patient: known to practice within the last 3 years Consult date: 05/18/25 Requesting Physician: Gracie Chaudhry NP Primary Care Provider: Tulio Madrid MD Consult Narrative Reason for consult: chronic pain Narrative: Warner Caraballo a pleasant 69 year old male with chronic low back pain presents for evaluation. Notes pain in low back 5/10 aching hurt. notes increased pain with standing, walking, lifting, bending, ADLs. improves with sitting, lying down, hot tub, sleep. Pt has longstanding low back pain > 5 years unresponsive to greater than 6 weeks of PT and HEP, heat, ice, tylenol, NSAIDs. pt found benefit to prior lumbar RFAs, no recent imaging. prior lumbar xray consistent with multilevel degenerative changes and mild lumbar spondylolisthesis. pt denies numbness, tingling, weakness to BLE. utilizing diclofenac, gabapentin, flexeril, tylenol. tramadol with mild relief. denies side effects. pt following up after bilateral L4-5 L5-S1 MBB #1 which he noted less than 80% improvement while anesthetized. cc:: CC: Gracie Chaudhry NP Review of Systems ROS Musculoskeletal Reports: back pain; Denies: extremity pain PFSH PFSH Medical History Insomnia ?G47.00 - Insomnia, unspecified (ICD-10) Seasonal allergic rhinitis ?J30.2 - Other seasonal allergic rhinitis (ICD-10) Polyneuropathy due to type 2 diabetes mellitus ?E11.42 - Type 2 diabetes mellitus with diabetic polyneuropathy (ICD-10) Nonalcoholic fatty liver ?K76.0 - Fatty (change of) liver, not elsewhere classified (ICD-10) Hypogonadism Degenerative disc disease, lumbar ?M51.369 - Other intervertebral disc degeneration, lumbar region without mention of lumbar back pain or lower extremity pain (ICD-10) Pseudophakia ?Z96.1 - Presence of intraocular lens (ICD-10) Cataract ?H26.9 - Unspecified cataract (ICD-10) Lumbar spondylosis ?M47.816 - Spondylosis without myelopathy or radiculopathy, lumbar region (ICD-10) Diabetes mellitus ?E11.9 - Type 2 diabetes mellitus without complications (ICD-10) Knee pain ?M25.569 - Pain in unspecified knee (ICD-10) Back pain ?M54.9 - Dorsalgia, unspecified (ICD-10) Hypertension ?I10 - Essential (primary) hypertension (ICD-10) Gout ?M10.9 - Gout, unspecified (ICD-10) Sleep apnea ?G47.30 - Sleep apnea, unspecified (ICD-10) Hyperlipidemia ?E78.5 - Hyperlipidemia, unspecified (ICD-10) Myofascial pain ?M79.18 - Myalgia, other site (ICD-10) Lumbar stenosis with neurogenic claudication ?M48.062 - Spinal stenosis, lumbar region with neurogenic claudication (ICD-10) Bilateral primary osteoarthritis of knee ?M17.0 - Bilateral primary osteoarthritis of knee (ICD-10) Pulmonary embolism (07/2020) ?I26.99 - Other pulmonary embolism without acute cor pulmonale (ICD-10) COVID-19 (07/2020) ?U07.1 - COVID-19 (ICD-10) Kidney stones ?N20.0 - Calculus of kidney (ICD-10) Knee osteoarthritis ?M17.9 - Osteoarthritis of knee, unspecified (ICD-10) Fusion, toes ?Q70.20 - Fused toes, unspecified foot (ICD-10) Surgical History H/O sinus surgery ?Z98.890 - Other specified postprocedural states (ICD-10) History of vasectomy ?Z98.52 - Vasectomy status (ICD-10) S/P cataract extraction and insertion of intraocular lens ?Z98.49 - Cataract extraction status, unspecified eye (ICD-10) ?Z96.1 - Presence of intraocular lens (ICD-10) History of radiofrequency ablation (RFA) of nerve of lumbar spine ?Z98.890 - Other specified postprocedural states (ICD-10) S/P epidural steroid injection ?Z92.241 - Personal history of systemic steroid therapy (ICD-10) History of foot surgery ?Z98.890 - Other specified postprocedural states (ICD-10) History of tonsillectomy and adenoidectomy ?Z90.89 - Acquired absence of other organs (ICD-10) S/P right knee arthroscopy ?Z98.890 - Other specified postprocedural states (ICD-10) S/P left knee arthroscopy ?Z98.890 - Other specified postprocedural states (ICD-10) Family History Other Family history of diabetes mellitus Family history of hypertension Family history of prostate cancer Family history of stroke Social History Within the past year, how often did you have a drink containing alcohol: monthly or less Smoking status: Never smoker Non-prescribed substance use: denies use Previous occupational history: RETIRED Highest level of school completed/degree received: high school graduate Meds Home Medications and Allergies Home Medications ?Medication ?Instructions ?Recorded ?Confirmed ?Type acetaminophen 500 mg tablet 1,000 mg PO Q6H PRN pain 01/06/23 05/18/25 History (Acetaminophen Extra Strength) ascorbic acid (vitamin C) 500 mg 500 mg PO BID 01/06/23 05/18/25 History tablet (C-500) cholecalciferol (vitamin D3) 25 1,000 unit PO BID 01/06/23 05/18/25 History mcg (1,000 unit) tablet (Vitamin D3) colchicine 0.6 mg tablet 0.6 mg PO TID 01/06/23 05/18/25 History febuxostat 40 mg tablet 40 mg PO DAILY 01/06/23 05/18/25 History lisinopril 5 mg tablet 5 mg PO DAILY 01/06/23 05/18/25 History metformin 500 mg tablet,extended 500 mg PO DAILY 01/06/23 05/18/25 History release 24 hr allopurinol 300 mg tablet 300 mg PO DAILY 07/20/24 05/18/25 History semaglutide 2 mg/dose (8 mg/3 mL) 2 mg subcut QWEEK 07/20/24 05/18/25 History subcutaneous pen injector (Ozempic) testosterone cypionate 200 mg/mL 200 mg IM Q14D 07/20/24 05/18/25 History intramuscular oil trazodone 50 mg tablet 50 mg PO .QHS 08/23/24 05/18/25 History diclofenac sodium 50 mg 50 mg PO BID #60 tabs 11/25/24 05/18/25 Rx tablet,delayed release gabapentin 600 mg tablet 600 mg PO TID #90 tabs 05/04/25 05/18/25 Rx tramadol 50 mg tablet 50 mg PO BID PRN pain #60 tabs 05/04/25 05/18/25 Rx cyclobenzaprine 10 mg tablet 10 mg PO HS 05/18/25 05/18/25 History Allergies Allergy/AdvReac Type Severity Reaction Status Date / Time oxycodone AdvReac hyperactivi Verified 05/16/25 08:52 ty Exam Constitutional Documenting provider has reviewed patient's vital signs: yes Common normals: no apparent distress, oriented x3, healthy appearing, alert and well nourished General appearance: cooperative HENMT Common normals: normocephalic, hearing grossly normal bilaterally and moist oral mucous membranes Head and scalp: normocephalic Eye Common normals: PERRL Pupil: PERRL Neck & C-Spine Common normals: full ROM General: normal visual inspection Chest Common normals: inspection of chest normal Respiratory Common normals: normal respiratory effort, no retractions and no use of accessory muscles Back & Pelvis Lumbar spine/lower back: pain with ROM, lumbar spinal tenderness and straight leg raise negative bilaterally Sacroiliac joints: SI joints normal Other: strength 5/5 in BLE sensation intact BLE positive facet loading Neuro Common normals: oriented x3 Sensorium/orientation: alert Psych Common normals: mental status grossly normal, thought process normal, cooperative, affect normal, speech normal and activity/motor behavior normal Speech: normal speech Thought process: normal thought process Results Additional Findings Additional findings: If on a controlled substance or opioids, I have checked an [place]AR[place] report on this patient and there are no aberrancies noted in the prescribing history.??If on a controlled substance or opioid a drug screen was completed and reviewed within the last year, and if there has not been a drug screen completed we ordered one today to monitor higher risk, state monitored pain medication use. As part of providing excellent, safe, comprehensive care, the following was completed at our patient's visit: 1. A medication reconciliation and review to ensure accurate knowledge of current/active medications, including asking our patients to inform us about any ymis-mki-dpkwafr medications or herbal remedies/nutritional supplements/alternative remedies. 2. A review to specifically ensure our patients have had annual screening for screening for depression, screening for tobacco use, and screening for unhealthy alcohol use. For concerning screenings had a discussion with the patient, provided patient education, and recommended follow-up with primary care provider when appropriate. If patient noted with a risk of falling, they received education on strength, gait, and balance training to prevent future risk of falling. Portions of this note may have been carried over from the previous visit and updated as appropriate. Please note this office utilizes paper charting in addition to the electronic medical record. A list of current medications, vitals, and PMH is available there as the clinical staff outside of myself do not have access to [employer] charting during the clinic day operations. As part of providing quality comprehensive care the current medications, vitals, and PMH were reviewed in the paper chart. Assessment and Plan Assessment and Plan (1) Lumbar spondylosis: Assessment and Plan: 05-16-25 bilateral L4-5 L5-S1 mbb #1 with 50% improvement while anesthetized (2) Degenerative disc disease (DDD) of lumbar region with axial back pain without leg pain: (3) Myalgia, other site: (4) Chronic use of opiate for therapeutic purpose: Assessment and Plan: I feel these medications are improving the patient's quality of life and allow them to tolerate activities of daily living as well as participate in recreational activity.? The patient does not report intolerable side effects. The patient is NOT opioid naive and non-pharmacologic and non-opioid treatment has failed to significantly relieve the patient's pain and improve functionality. The patient has a diagnosis that is related to a somatic or visceral pain etiology. ? ?? I reviewed with the patient the potential risks and side effects with the use of? opioid medications including but not limited to respiratory depression,? sedation, and even . Within the last 12 months I have verified the patient has access to naloxone should? these effects occur. The patient was advised to let? their family know they had Naloxone in case they would need to administer? the medication. I advised the patient to avoid the use of any other? sedation substances including alcohol, THC, and benzodiazepines while? taking opioid medications due to the risk of compounding side effects and? detrimental outcomes. within the last 12 months I have reviewed the HUMAN RESOURCES BENEFITS ADMINISTRATOR, pain treatment agreement and urine drug screen.? ?? A drug screen was completed within the last year, and no aberrancies were noted regarding their use of controlled substances. The patient understands they are subject to the terms and conditions of the pain contract that they have signed. ? ?? I have checked an OARRS report on this patient today and there are no aberrancies noted in the prescribing history.? (5) Chronic low back pain: Plan The patient has had over 3 months of moderate to severe low back pain with functional impairment and inadequate response to conservative care including NSAIDS (unless there are contraindication such as concurrent blood thinners), multiple oral or topical pain medications, and home exercise program/physical therapy.? Patient has completed >6 weeks of guided home exercise program and/or formal physical therapy program without relief of their symptoms.? The Oswestry Disability Index was completed, and the patient scored a 4%.??previously 16% cancel bilateral L4-5 L5-S1 MBB #2 update lumbar MRI without contrast to assess chronic low back pain, lumbar ddd, lumbar spondylosis, and modic changes update UDS for medication monitoring continue gabapentin 600mg TID, flexeril 5-10mg tid prn pain/spasms, tramadol 50mg bid prn moderate to severe pain, diclofenac 50mg bid prn pain. f/u to review lumbar MRI
== END 2025-05-18 08:13 | disposition home or self-care (01) ==
LOC: PM 08:12
PROVIDERS: PCP Family Medicine; Visit Provider Nurse Practitioner
DX: M47.816 Spondylosis without myelopathy or radiculopathy, lumbar region (principal); M51.360 Other intervertebral disc degeneration, lumbar region with discogenic back pain only; M79.18 Myalgia, other site; Z79.891 Long term (current) use of opiate analgesic
CPT/HCPCS: G0463

== ENCOUNTER 2025-05-25 10:37 | Outpatient (OUT) | payer MEDICARE, OTHER, SELFPAY ==
--- OUTSIDE RECORDS SUMMARY | 2024-07-27 04:00 | XMS_ITS ---
Author Organization The [facility] in [place] Address [address] [place] [address] Care Team Providers Care Director Of Admissions Name Role Phone None, Unknown or Primary Care Provider Unavailab marylou NealevanJames [phone] REASON FOR VISIT -6 Month Follow Up- Encounters Encounter Location Date Provider Diagnosis [facility] (PODIATRY) [address] [place] [address] [place] [address] 07/27/2024 James Raya Left foot pain M79.672 Assessments Encounter Date Diagnosis (ICD Code) Assessment Notes Treatment Notes Treatment Clinical Notes Section Notes 07/27/2024 Left foot pain (ICD-10 - M79.672 ) Plan Of Treatment Pending Test Test Name Order Date XR Foot LT (3 views) * 07/27/2024 Progress Notes * Warner LOCKE CDOB: [birth year] (69 yo M)Acc No.[id number]:07/27/2024 UNLOCKED PROGRESS NOTE Follow Up Patient: Etelvina BOND Warner Farrar :?James Raya DPVirgilio, MSDOB:1955???Age: 68 Y???Sex:MaleDate:07/27/2024Phone:[phone]:JARETH DUNCAN [id number]:Unknown or None Subjective: * Chief Complaints: * 1 . -6 Month Follow Up-. * Medical History: Objective: * Vitals: Assessment: * Assessment: 1.?Left foot pain - M79.672??? Plan: * Treatment: ?Imaging: XR Foot LT (3 views) * * * Electronic signature of James Raya DPM on 05/25/2025 at 10:45 AM ESTSign off status: PendingVisit Status:?CANC (Cancelled) * Provider: Supriya Raya DPM, MS Date: 0 07/27/2024 Generated for Printing/Faxing/eTransmitting on:?05/25/2025 10:45 AM EST
--- OUTSIDE RECORDS SUMMARY | 2024-08-23 09:00 | XMS_ITS ---
Author Organization [facility] Address [address] [place] [address] Care Team Providers Care Children'S Librarian Name Role Phone Tulio Madrid Primary Care Provider Julissa chris Daniele Valencia Unavailable [phone] REASON FOR VISIT 1ST POST OP LEFT TKA 08/09 Problems Problem Type SNOMED Code ICD Code Onset Dates Problem Status W/U Status Risk Notes Problem History of musculosk eletal operation (350737071) Aftercare following joint replacement surgery (Z47.1) ActiveconfirmedProblemArtificial knee joint present (194226776830)Presence of left artificial knee joint (Z96.652)Activeconfirmed Encounters Encounter Location Date Provider Diagnosis [facility] Office [address] [place] [address] [place] [address] 08/23/2024 Daniele Valencia Aftercare following joint replacement [...] Date SCC- KNEE 2 VIEW LEFT - 36494 08/23/2024 Progress Notes * CARLOS LOCKE CDOB: [birth year] (69 yo M)Acc No.[id number]:08/23/2024 Progress Notes Patient: Etelvina BONDCARLOS :?Daniele Valencia, DODOB:1955???Age:69 Y ???Sex:MaleDate:08/23/2024Phone:[phone]:[address], [id number]:Tulio Madrid Subjective: * Chief Complaints: * 1 . 1ST POST OP LEFT TKA 08/09. * Medical History: Objective: * Vitals: Assessment: * Assessment: 1.?Aftercare following joint replacement surgery - Z47.1 (Primary)???2.?Presence of left artificial knee joint - Z96.652??? Plan: * Treatment: ?Imaging: SCC- KNEE 2 VIEW LEFT - 295035.?Presence of left artificial knee joint?Imaging: SCC- KNEE 2 VIEW LEFT - 44912 Forms: * Images: * Electronic signature of Daniele Valencia DO on 05/25/2025 at 10:46 AM ESTSign off status: Pending * Provider: Noa Valencia DO Date: 0 08/23/2024 Generated for Printing/Faxing/eTransmitting on:?05/25/2025 10:46 AM EST
--- OUTSIDE RECORDS SUMMARY | 2024-11-22 08:10 | XMS_ITS ---
Author Organization [facility] Address [address] [place] [address] Care Team Providers Care Landmen Name Role Phone Tulio Madrid Primary Care Provider Daniele Ruffin Unavailable [phone] REASON FOR VISIT LEFT KNEE RECHECK DOS 02.10 Encounters Encounter Location Date Provider Diagnosis [facility] Office [address] [place] [address] [place] [address] 11/22/2024 Daniele Valencia Aftercare following joint replacement surgery Z47.1 Assessments Encounter Date Diagnosis (ICD Code) Assessment Notes Treatment Notes Treatment Clinical Notes Section Notes 11/22/2024 Aftercare following joint replac ement surgery (ICD-10 - Z47.1) Plan Of Treatment Pending Test Test Name Order Date SCC- KNEE 2 VIEW LEFT - 78947 11/22/2024 Progress Notes * CARLOS LOCKE CDOB: [birth year] (69 yo M)Acc No.[id number]:11/22/2024 Patient:?CARLOS LOCKE :?Daniele Valencia, DODOB:1955???Age:69 Y ???Sex:MaleDate:11/22/2024Phone:[phone]:JARETH DUNCAN [id number]:Tulio Madrid Subjective: * Chief Complaints: * 1 . LEFT KNEE RECHECK DOS 02.10. * Medical History: Objective: * Vitals: Assessment: * Assessment: 1.?Aftercare following joint replacement surgery - Z47.1 (Primary)??? Plan: * Treatment: ?Imaging: SCC- KNEE 2 VIEW LEFT - 36492 * Procedure Codes: 7 3560 X-ray Knee, 2 view Forms: * Images: * Electronic signature of Daniele Valencia DO on 05/25/2025 at 10:45 AM ESTSign off status: Pending * Provider: Noa Valencia DO Date: 0 11/22/2024 Generated for Printing/Faxing/eTransmitting on:?05/25/2025 10:45 AM EST
--- NOTE | 2025-05-25 | XR_ITS ---
The [address] [address] Patient Name: CARLOS LOCKE MRN: [id number] date: 1955 Sex: M Assigned Patient Location: RAD Current Patient Location: [facility] Accession/Order Number: [id number] Exam Date: 05/25/2025 11:15 Report Date: 05/25/2025 12:12 At the request of: ABIODUN MARTELL Procedure: XR abdomen 1V SINGLE VIEW ABDOMEN COMPARISON: 05/17/2024 CLINICAL DATA: Follow-up kidney stones. Supine views of the abdomen and pelvis were obtained. There is air within the stomach. There is air and stool within the ascending and transverse colon. There are still stones at the right kidney measuring 13 and 14 mm in size. There are also stones at the left kidney measuring up to 11 mm. There is a 1 cm calcification in the right paraspinal region at the L4-5 level which is new. This may be migration of one of the stones from the kidney on the prior down to the UP junction/proximal ureter. There are no soft tissue masses. Degenerative changes are seen at the spine. XR/XR abdomen 1V IMPRESSION: CONTINUED BILATERAL NEPHROLITHIASIS AND POSSIBLE RIGHT URETEROPELVIC JUNCTION/PROXIMAL URETERAL STONE Impression dictated by: Brunilda Rogers M.D. 05/25/2025 12:12 PM Dictation Location: [place] [address] Electronically authenticated by: [id number] Y Date: 05/25/2025 12:12
--- OUTSIDE RECORDS SUMMARY | 2025-05-25 10:45 | XMS_ITS | Clinical Summary ---
Author Organization [facility] Address [address] [place] [address] Care Team Providers Care Lumber Racker Name Role Phone Tulio Madrid MD Primary Care Provider [phone] Allergies Active AllergyReactionsCriticalityNoted HfyzOngtozukXzaantiyjBxgzj61/18/2023 Oxycodone-Rwlnaciumuzjg93/18/2023 Medications MedicationSigDispense QuantityRefillsLast FilledStart DateEnd DateStatus atorvastatin (Lipitor) 20 mg tablet atorvastatin 20 mg tablet TAKE 1 TABLET BY MOUTH EVERYDAY AT QBDHBZN9304/25/2020Active colchicine 0.6 mg tablet Take 0.6 mg [...] 2 TABLETS BY MOUTH EVERY DAY AT SNXXKRZ6407/11/2022ctive Active Problems ProblemNoted DateDiagnosed DateBenign prostatic hyperplasia with urinary szkebsxiqgs98/18/2023History of colonic spbxow4407/31/2022Hydronephrosis with renal and ureteral calculus sowmibkrhpj74/18/2023Liver mass07/31/2022Long term current use of anticoagulant ztcqlmm4007/31/2022Neoplasm of uncertain behavior of liver and biliary takbytit20/18/3896Qctyberz51/18/2923Urbmvb92/31/2022ack pain 12/11/2021iabetes zuhuntdz63/31/4042Qdsf68/31/2022History of pulmonary embolism 12/11/2021 Assessment & Plan (07/31/2022 2:19 PM EST): Currently stable History of severe acute respiratory syndrome coronavirus 2 (SARS-CoV-2) disease 12/11/20218034Qspqawidfqsser68/31/2022 Assessment & Plan (07/31/2022 2:17 PM EST): Lipid abnormalities are currently well controlled with lipitor 20 mg- LDL currently 58.6 on labs 07/26/2022 Liver function 04/2022 were normal Hypertensive evewtnee48/31/2022 Assessment & Plan (07/31/2022 2:18 PM EST): Hypertension is well controlled 114/64 Continue lisinopril 5 mg Recent CR elevated 1.59- his cr typically has been 1.2-1.4 - He has been on antibiotics for Lt foot infection- DFU with wound care. Vfcvcwv2512/11/2021bstructive sleep apnea lczyixhn95/31/2022 Family History Medical HistoryRelationNameCommentsStrokeFatherRelationNameStatusCommentsFather Social History Tobacco UseTypesPacks/DayYears UsedDateSmoking Tobacco: NeverSmokeless Tobacco: Never Tobacco Cessation:Counseling Given: Not Answered Alcohol UseStandard Drinks/WeekCommentsYes0 (1 standard drink = 0.6 oz pure alcohol)occasionalUT Safety & EnvironmentAnswerDate RecordedFear of Current or Ex-PartnerNot on file09/04/2023Emotionally AbusedNot on file09/04/2023hysically AbusedNot on file09/04/2023Sexually AbusedNot on file09/04/2023hysically or Sexually AbusedNot on file09/04/2023Sex and Gender InformationValueDate Recorded Sex Assigned at BirthNot on fileLegal HuuCgwp7401/09/2022 9:30 PM EDTGender IdentityNot on fileSexual OrientationNot on file Last Filed Vital Signs Vital SignReadingTime TakenCommentsBlood Jpgrbhdy495/6401 1:39 PM EST Kzipe777707/31/2022 1:39 PM ESTTemperature--Respiratory Rate--Oxygen Ksmwdwkcyx69% 07/31/2022 1:39 PM ESTInhaled Oxygen Concentration--Kqnuna983 kg (308 lb) 07/31/2022 1:39 PM EXHNvrwaa182.4 cm (6' 1 )07/31/2022 1:39 PM ESTBody Mass Index40.64007/31/2022 1:39 PM EST Plan of Treatment Health MaintenanceDue DateLast DoneCommentsCT Iqaftmsypwym67/09/1957Colonoscopy 1955Colorectal Cancer Gpuufibgx36/09/1957Diabetes: Hemoglobin A1C 1956FIT-DNA1956FIT1956FOBT1956Medicare Annual Wellness (AWV)1955 3925Fmlmwbintgnus22/09/1957Diabetes: Retinopathy Slijouamz72/09/1967 Depression Reopexlku08/09/1969Diabetes: Urine Protein Zwbhgfqms59/09/1976Adult Ddmclup4208/22/1978Zoster Vaccines (1 of 2)2006Fall Risk Nrmjuljgc50/09/2022 Pneumococcal Vaccine: 50+ Years (2 of 2 [...] Date Tulio Madrid MD [address] [place] [address] PCP - [facility]07/05/24
--- OUTSIDE RECORDS SUMMARY | 2025-05-25 10:45 | XMS_ITS | Clinical Summary ---
Author Organization [facility] Address [address] [place] [address], [address] [place] [address] Care Team Providers Care Visual Manager Name Role Phone Tulio Madrid MD Primary Care Provider + Social History Tobacco UseTypesPacks/DayYears UsedDateSmoking Tobacco: Never AssessedSex and Gender InformationValueDate RecordedSex Assigned at BirthNot on fileLegal Sex Male01/31/2025 12:58 PM EDTGender IdentityNot on fileSexual OrientationNot on file Plan of Treatment Health MaintenanceDue DateLast DoneCommentsDepression Qurtfs5808/22/1968Hepatitis C yprqbk8708/22/1974DTaP/Tdap/Td vaccine (1 - Tdap)08/22/19754839Bgvuou59/09/1997 Tkcujmelowy96/09/2002Colorectal Cancer Fbkget4208/22/2001FIT/FOBT: Average risk 2001Fecal-DNA (Cologuard): Average risk2001Sigmoidoscopy/CT lcrundmwicys57/09/2002Shingles vaccine (1 of 2)2006Pneumococcal 50+ years Vaccine [...] Date Tulio Madrid MD [address] [place] [address] PCP - GeneralFaorly Medicine01/31/25
--- OUTSIDE RECORDS SUMMARY | 2025-05-25 10:45 | XMS_ITS | Encounter Summary ---
Author Organization [facility] Address [address] [place] [address] Care Team Providers Care Pullboat Engineer Name Role Phone Tulio Madrid MD Primary Care Provider [phone] Encounter Details DateTypeDepartmentCare Team (Latest Contact Info)Wspgkyxgxmd48/07/2025linisync Result Encounter [facility] External Department Unsolicited Provider, Generic External Data Social History Tobacco UseTypesPacks/DayYears UsedDateSmoking Tobacco: NeverSmokeless Tobacco: NeverSex and Gender InformationValueDate RecordedSex Assigned at BirthNot on fileLegal SitHogu4309/25/2022 7:24 PM EDTGender IdentityNot on fileSexual OrientationNot [...] EST Narrative 07/20/2024 8:[address] [facility] ?[address] ? [place] [address] ? Electrocardiograph Report ? Signed ? Patient: CORNELIA,WARNER Farrar ?MR#: [id number] ?? : 1955 ?Acct:[id number] ?? Age/Sex: 68 / M ?ADM Date: 07/20/24 ?? Loc: PST ? Attending Dr: Daniele Valencia M.D. ? Ordering Physician: Daniele Valencia M.D. ?? Date of Service: 07/20/24 ?? Procedure(s): ECG 12 lead ?? Accession Number(s): [id number] ? cc: ?[facility] ? Test Date: ?2024-07-20 ?? Pat Name: ? WARNER CORNELIA ? Department: ? Room: ? - ?? Gender: ? Male ? Machine Design Teacher: ? : ?1955 ? Requested By: 2089 ?? Order Number: [id number] ?Reading MD: ?? ABDOULAYE ??BALL ? Measurements ?? Intervals ?[place] ? Rate: ? 73 ? P: ?65 ?? CO: ? 169 ?QRS: ?-58 ?? QRSD: ? [...] 2001 ? DD/ 0949 ? TD/TT: ? Postmaster Relief: Procedure Note Radiology, Radiologist, - 07/20/2024 [place] [address] Electrocardiograph Report Signed Patient: WARNER LOCKE CMR#: [id number] : 1955cct:[id number] Age/Sex: 68 / MADM Date: 07/20/24 Loc: [facility] Attending Dr: Daniele Valencia M.D. Ordering Physician: Daniele Valencia M.D. Date of Service: 07/20/24 Procedure(s): ECG 12 lead Accession Number(s): [id number] cc: [facility] Test Date: 2024-07-20 Pat Name: WARNER LOCKE Department: Room: - Gender: Male Machine Design Teacher: : 1955 Requested By: 2089 Order Number: [id number] Reading MD: ABDOULAYE PADILLA Measurements Intervals [place] Rate: 73 P: 65 CO: 169 QRS: -58 QRSD: 140 T: 38 QT: 387 QTc: 429 Interpretive Statements SINUS RHYTHM RIGHT BUNDLE BRANCH BLOCK [120+ ms QRS DURATION, UPRIGHT V1, 40+ ms S IN I/aVL/V4/V5/V6] LEFT ANTERIOR FASCICULAR BLOCK [QRS AXIS <= -45, QR IN I, RS IN II] Electronically Signed On 07-20-2024 20:01:19 EST by ABDOULAYE PADILLA Dictated By: Abdoulaye Padilla D.O. Signed By:07/20/242000 DD/ 0949 TD/TT: Postmaster Relief: Authorizing ProviderResult TypeResult StatusGeneric External Data Provider CLINISYNC IMAGINGFinal Result documented in this encounter Visit Diagnoses Not on filedocumented in this encounter Care Teams Team MemberRelationshipSpecialtyStart DateEnd Date Tulio Madrid MD PCP - GeneralFamily Medicine01/12/24documented as of this encounter
--- OUTSIDE RECORDS SUMMARY | 2025-05-25 10:45 | XMS_ITS | Patient Health Record ---
Author Organization [facility] Address [address] [place] [address] Care Team Providers Care Content Engineer Name Role Phone Tulio Madrid Primary Care Provider Daniele Ruffin Unavailable [phone] Akash Hall Unavailable [phone] Results Component Value Reference Range Notes XR Knee 1 or 2 Views Left [...] of the left knee. Preoperative planning. XR Foreign Body Loc Eye Bila teral (Not yet reviewed by provider) Interpretation: Performing Lab: Notes/Report: Patient Name: Carlos Locke Procedure: AP view of the orbits. Surgery Scheduling Reviewed date:08/31/2024 09:51:53 AM Interpretation: Performing Lab: Notes/Report: Primary Insurance Company: WIL[employer] Surgeon/Assist:ANTHONY/VAHE Mendoza [facility] [facility] arrival time day of:7:00 AMSurgery End Time:12:00Procedure: LEFT TOTAL KNEE ARTHROPLASTYSpecial Equipment:EDEN AND [employer] VISIONEERC-Arm: YESDiagnosis:OSTEOARTHRITIS OF LEFT KNEEAdmission Type:OPAnesthesia Type/CPNB: GENERAL/OVFQVQth53 HR OBSPost-op Appointment Date:2/10/25 @ 2 PMLatex AllergyNO Lab Location:[facility] Date/Time:07/20/2024 @ [facility] Date/ Assistant Family Teacher:ISMAEL Shell & Physical Appointment Date/:07/26/24Pre-op labs/Chest Order:CBC [...] XR KNEE LEFT (3 VIEWS) Performed at: [place] [address] Reason For Referral Reason NO PRIOR AUTH REQUIR ED ANTHEM...NOT SCHED...PLEASE PRECERT LEFT KNEE MRI WITH EDEN AND NEPHTY PROTOCOL AT [facility] Diagnosis 1 Primary osteoarthrit is of left knee (M17.12) Diagnosis 2 Pain in left knee (M 25.562) Referral Organization [facility] Referring Provider First Name Daniele Referring Provider Last Name Anthony Referring Provider Speciality Orthopedic Surgery Referred Organization [facility] Radiology Dept . Referred Provider Daniele Valencia Referred Address [address] [place] [address], Referred Provider Specialty Orthopedic S urgery Procedure 1 MRI Joint Lower Ext w/o Dye (71040) General Notes Ismael Mariee 2023 10:22:15 AM >, Bell Avendano 06/23/2024 03:49:25 PM > PENDING WITH [facility]. FORM AND CLINICALS FAXED. FORM IN CHART.Juan Alberto Amber 06/25/2024 08:14:25 AM > NO PRIOR AUTH REQUIRED PER FAX FROM [facility]. REF IN CHART. PER AVAILITY, WILFRID IS ACTIVE OF 07/14/2022. FAXED TO [facility].Kodi Tricia 06/28/2024 06:56:53 AM >ORDERS FAXED Referral Priority Routine Reason APPROVED ANTHEM... 08/09...PLEASE PRECERT LEFT TOTAL KNEE REPLACEMENT WITH EDEN AND NEPHEW AT [facility] Diagnosis 1 Primary osteoarthrit is of left knee (M17.12) Referral Organization [facility] Referring Provider First Name Daniele Referring Provider Last Name Anthony Referring Provider Speciality Orthopedic Surgery Referred Organization [facility] Referred Provider Daniele Valencia Referred Address [address] [place], [place],[address],[place] Referred Provider Specialty Orthopedic S urgery Procedure 1 Arthroplasty Knee To clare Med/Lat Compartments (22401) General Notes Ismael Mariee 2024 09:43:18 AM >, Bell Avendano 07/23/2024 12:38:24 PM > AUTH IS PENDING WITH [facility]. FORM AND CLINICALS WERE FAXED. FORM IN CHART.Juan Alberto Amber 07/26/2024 02:03:05 PM > AUTH WAS APPROVED PER [facility]. APPROVED DATES ARE FROM 07/23/2024-09/20/2024. AUTH #[id number]. AUTH IN CHART. PER AVAILITYWILFRID IS ACTIVE OF 07/14/2022. FAXED TO [facility]. Referral Priority Routine Medications Medication SIG (Take, Route, Frequency, Duration) Notes Start Date End Date Status Adult Aspirin Regimen 81 mg 1 tab(s) orally 2 TI MES A DAY; Duration: 30 days 5Active Social History Tobacco Use: [...] in the past year?Monthly or less (1 point)Pkhnbh1AipbbnxvfrvhbnOgqwlzka Tobacco Control (Standard) Question Answer Notes Tobacco use: Nonsmoker Problems Problem Type SNOMED Code ICD Code Onset Dates Problem Status W/U Status Risk Notes Problem History of musculosk eletal operation (908203314) Aftercare following joint replacement surgery (Z47.1) ActiveconfirmedProblemPain of right knee region (finding) (223393570126888)Pain in right knee (M25.561)ActiveconfirmedProblemOsteoarthritis of knee (296175531) Primary osteoarthritis of left knee (M17.12)ActiveconfirmedProblemPain of left knee joint (finding) (160722735564496)Pain in left knee (M25.562)Activeconfirmed ProblemArtificial knee joint present (075764817835)Presence of left artificial knee joint (Z96.652)ActiveconfirmedProblemBilateral arthritis of knees (5884305203807082)Primary osteoarthritis of knees, bilateral (M17.0)Active confirmed Vital Signs Height 6'1 in 01/31/2025 Atjjzg722 lbs5BMI37.9901/31/2025 Encounters Encounter Location Date Provider Diagnosis [facility] [address] [place] [address] 06/21/2024 Danielejavier Valencia Pain in right knee M25.561 ; Pain in left knee M25.562 and Primary osteoarthritis of left knee M17.12 [facility] [address] [place] [address] 07/26/2024 Daniele Valencia Primary osteoarthrit is of left knee M17.12 [facility] [address] [place] [address] 08/23/2024 Daniele Valencia Primary osteoarthrit is of left knee M17.12 [facility] [address] [place] [address] 09/06/2024 Daniele Valencia Aftercare following joint replacement surgery Z47.1 and Presence of left artificial knee joint Z96.652 [facility] [address] [facility] [place] [address] 10/04/2024 Daniele Valencia Aftercare following joint replacement surgery Z47.1 and Presence of left artificial knee joint Z96.652 [facility] [address] [facility] [place] [address] 12/20/2024 Daniele Valencia Aftercare following joint replacement surgery Z47.1 and Presence of left artificial knee joint Z96.652 [facility] Office [address] [place] [address] 01/31/2025 Daniele Valencia Aftercare following joint replacement surgery Z47.1 and Presence of left artificial knee joint Z96.652 [facility] [address] [place] [address] 06/08/2024 Akash [facility] [place] [address]/ [facility]iele [facility] [place] [address]/04/2025Dylan Mathriverside methodist hospitalPrimary osteoarthritis of left knee M17.12 ; Presence of left artificial knee joint Z96.652 and Aftercare following joint replacement surgery Z47.1[facility] [place] [address]/Dylan MathewsAftercare following joint replacement surgery Z47.1[facility] [place] [address]/09/2024Dylan MathewsAftercare following joint replacement surgery Z47.1 Assessments Encounter Date Diagnosis (ICD Code) Assessment Notes Treatment Notes Treatment Clinical Notes Section Notes 06/21/2024 Pain in right knee (ICD-10 - M25 .561) Left knee vbbcoxkwkvjxyg93/09/2024ain in left knee (ICD-10 - M25.562)Left knee ogtzuvecyudore92/13/2025Primary osteoarthritis of left knee (ICD-10 - M17.12) Left knee byrkhirflgubcl89/10/2025Primary osteoarthritis of left knee (ICD-10 - M17.12)08/23/2024Primary osteoarthritis of left knee (ICD-10 - M17.12)08/23/2024 Presence of left artificial knee joint (ICD-10 - Z96.652)08/26/2024ftercare following joint replacement surgery (ICD-10 - Z47.1)09/06/2024ftercare following joint replacement surgery (ICD-10 - Z47.1)Status post left total knee dugoybdyucgx96/03/2025ftercare following joint replacement surgery (ICD-10 - Z47.1)10/04/2024ftercare following joint replacement surgery (ICD-10 - Z47.1) Status post left total knee wpgcnylujlrf67/09/2025ftercare following joint replacement surgery (ICD-10 - Z47.1)Status post left total knee arthroplasty. 01/31/2025ftercare following joint replacement surgery (ICD-10 - Z47.1)Right knee OA01/31/2025Presence of left artificial knee joint (ICD-10 - Z96.652)Right knee OA12/20/2024Presence of left artificial knee joint (ICD-10 - Z96.652)Status post left total knee arthroplasty.10/04/2024Presence of left artificial knee joint (ICD-10 - Z96.652)Status post left total knee rtrbexmpfrfe38/24/2025 Presence of left artificial knee joint (ICD-10 - Z96.652)Status post left total knee epbzvvkqxbuf00/10/2025ercare following joint replacement surgery (ICD-10 - Z47.1)06/21/2024rimary osteoarthritis of left knee (ICD-10 - M17.12)Left knee cwviwofxmkceqn46/09/2024OtherI discussion with the patient regarding his left [...] from his PCP and repeat A1c.Left knee evodjldcwnxtih17/13/2025OtherPatient is a 68-year-old male presenting today for his left knee osteoarthritis. He is exhausted con servative management. Do believe total knee arthroplasty can provide him with some benefit. Discussed risk and benefits of surgery in detail. No guarantees send and signed in the office today. Plan for left total knee arthroplasty.Left knee cdlnklvcddjwzo40/24/2025OtherPatient overall doing very well today in regard to his left total knee arthroplasty. Mobilizing quite well. Range of motion he is fairly stiff but overall progressing appropriately. Continue DVT prophylaxis. Follow-up in 1 month for clinical exam no x-rays.Status post left total knee rnwfegfxkwsw28/24/2025OtherPatient doing well today 6 weeks postop. Range of motion improving. Continue with aggressive PT. Hemay start to drive. Will see him back in the office in 6 weeks with x-raysStatus post left total knee vvbevkdzhnmb52/09/2025OtherPatient doing quite well today in regards to [...] Order Date Knee, left 3v AP, Lat, [place] - 76744 0 01/31/2025 PT - Evaluate and Treat, as directed, 2 - 3 times a week x 4 - 6 weeks 07/26/2024 XR Foreign Body Loc Eye Bilateral 2024 XR Knee 1 or 2 Views Left 07/23/2024 XR Knee Standing AP Bilateral 07/26/2024 XR Knee Standing AP Bilateral 07/26/2024 SCC- KNEE 4 VIEW LEFT-45810 06/21/2024 XR KNEE LEFT (3 VIEWS) 01/31/2025 SCC- KNEE 4 VIEW RIGHT 51094 06/21/2024 SCC- KNEE 2 VIEW LEFT - 29290 09/06/2024 SCC- KNEE 2 VIEW LEFT - 58839 10/04/2024 SCC- KNEE 2 VIEW LEFT - 57319 12/20/2024 MRI Knee Surg.Navigate or Plan ONLY Left 07/23/2024 Hip to ankle Lt -09232 visioneer 024 MRI : Knee, Left. Eden [employer] Nephew Vision[employer] shanita including long leg films 62941 06/21/2024 Insurance Providers Payer Name Payer Address Payer Phone Subscriber Number Group Number Insured Name Patient Relationship to Insured Coverage Start Date Coverage End Date Wilfrid [address] [place] [address] [id number] ILA LOCKE Spouse - patient is the spouse of the insured 5 Medications Administered Medication Instructions Date of Administration Dosage Notes BUPIVACAINE mLDepo-Ydcykw86 fZdphfauwcm12/26/20244 mL
--- OUTSIDE RECORDS SUMMARY | 2025-05-25 10:45 | XMS_ITS | Encounter Summary ---
Author Organization [facility] Address [address] [place] [address] Care Team Providers Care Chief Jailer Name Role Phone Tulio Ruggiero MD Primary Care Provider Encounter Details DateTypeDepartmentCare Team (Latest Contact Info)Slfvesewjly80/07/2025linisync Result Encounter [facility] External Department Unsolicited Provider, Generic External Data Social History Tobacco UseTypesPacks/DayYears UsedDateSmoking Tobacco: NeverSmokeless Tobacco: NeverSex and Gender InformationValueDate RecordedSex Assigned at BirthNot on fileLegal FmoCjaq2209/25/2022 7:24 PM EDTGender IdentityNot on fileSexual OrientationNot on filedocumented as of this encounter Plan of Treatment Not on file documented as of this encounter Procedures Procedure NamePriorityDate/TimeAssociated DiagnosisCommentsALL MISCELLANEOUS GWUEXazdwye06/07/2025 9:59 AM EST MRSA SCREENING SKIJXIVNvjwkks31/07/2025 9:50 AM EST ECG 12-LEAD07/20/2024 9:50 AM EST documented in this encounter Results * ALL MISCELLANEOUS TEST (07/20/2024 9:59 AM EST)ComponentValueRef RangeTest MethodAnalysis TimePerformed AtPathologist SignatureMISCELLANEOUS TESTCOMMENT. TBHComment: Test Ordered: [id number] Nicotine and Metabolite, Ur Qn Nicotine <10.0 ng/mL BN ?? Reference Range: . This test was developed and its performance characteristics determined by [facility]. It has not been cleared or approved [...] tobacco cessation products. Performed at: ?? - [facility] ??[id number] Final Finisher: Giovany Bhatt MD, Phone: ??[phone] Performed at: ?? - [facility] ??[id number] Final Finisher: Ivan Mckay PhD, Phone: ??[phone] Specimen (Source)Anatomical Location / LateralityCollection Method / Volume Collection TimeReceived Time07/20/2024 9:59 AM EST07/20/2024 10:02 AM EST Narrative [facility] - 07/23/2024 7:09 AM EST 745350 Nicotine and Metabolite, Quantitative, Urine Authorizing ProviderResult TypeResult StatusGeneric External Data Provider CLINISYNCFinal ResultPerforming OrganizationAddressCity/State/ZIP CodePhone Number [facility] * MRSA SCREENING CULTURE (07/20/2024 9:50 AM EST)ComponentValueRef RangeTest MethodAnalysis TimePerformed AtPathologist SignatureMRSASCRN1 ??MRSA Screening Culture BYCHRLSNAHH3XjwosmokTKBJYQLHZIO5Qjqrhwnnq at: [facility] HospitalTBHMRSASCRN1 [address] [place] [id number] Director: Ivan Mckay PhD, Phone: [phone] (Source)Anatomical Location / LateralityCollection Method / VolumeCollection [...] EST Narrative 07/20/2024 8:02 PM EST [facility] ?[address] ? [place] [address] ? Electrocardiograph Report ? Signed ? Patient: CORNELIA,CARLOS C ?MR#: [id number] ?? : 1955 ?Acct:[id number] ?? Age/Sex: 68 / M ?ADM Date: 07/20/24 ?? Loc: PST ? Attending Dr: Daniele Valencia M.D. ? Ordering Physician: Daniele Valencia M.D. ?? Date of Service: 07/20/24 ?? Procedure(s): ECG 12 lead ?? Accession Number(s): [id number] ? cc: ?[facility] ? Test Date: ?2024-07-20 ?? Pat Name: ? CARLOS CORNELIA ? Department: ? Room: ? - ?? Gender: ? Male ? Disk And Tape Machine Tender: ? : ?1955 ? Requested By: TULIO RUGGIERO ?? Order Number: [id number] ?Reading MD: ?? ABDOULAYE ??BALL ? Measurements ?? Intervals ?[place] ? Rate: ? 83 ? P: ?-3 ?? PA: ? 155 ?QRS: ?-53 ?? QRSD: ? [...] 2002 ? DD/ 0950 ? TD/TT: ? Vice President Of Procurement: Procedure Note Radiology, Radiologist, - 07/20/2024 [place] [address] Electrocardiograph Report Signed Patient: CARLOS LOCKE CMR#: [id number] : 7Acct:[id number] Age/Sex: 68 / MADM Date: 07/20/24 Loc: PST Attending Dr: Daniele Valencia M.D. Ordering Physician: Daniele Valencia M.D. Date of Service: 07/20/24 Procedure(s): ECG 12 lead Accession Number(s): [id number] cc: [facility] Test Date: 2024-07-20 Pat Name: CARLOS LOCKE Department: Room: - Gender: Male Disk And Tape Machine Tender: : 1955 Requested By: TULIO RUGGIERO Order Number: [id number] Reading MD: ABDOULAYE PADILLA Measurements Intervals [place] Rate: 83 P: -3 PA: 155 QRS: -53 QRSD: 141 T: 33 QT: 381 QTc: 449 Interpretive Statements SINUS RHYTHM RIGHT BUNDLE BRANCH BLOCK [120+ ms QRS DURATION, UPRIGHT V1, 40+ ms S IN I/aVL/V4/V5/V6] LEFT ANTERIOR FASCICULAR BLOCK [QRS AXIS <= -45, QR IN I, RS IN II] Electronically Signed On 07-20-2024 20:01:41 EST by ABDOULAYE PADILLA Dictated By: Abdoulaye Padilla D.O. Signed By:07/20/242001 DD/ 0950 TD/TT: Vice President Of Procurement: Authorizing ProviderResult TypeResult StatusGeneric External Data Provider CLINISYNC IMAGINGFinal Result documented in this encounter Visit Diagnoses Not on filedocumented in this encounter Care Teams Team MemberRelationshipSpecialtyStart DateEnd Date Tulio Ruggiero MD PCP - GeneralFamily Medicine01/12/24documented as of this encounter
--- OUTSIDE RECORDS SUMMARY | 2025-05-25 10:45 | XMS_ITS | Clinical Summary ---
Author Organization [facility] Address [id number] [address] [place] [address] Care Team Providers Care Public Services Librarian Name Role Phone Unavailable Primary Care Provider Unavailabl e Social History Tobacco UseTypesPacks/DayYears UsedDateSmoking Tobacco: Never AssessedChildcare AnswerDate WkwinylyDslhgappyWgyriov54/11/2019EmploymentAnswerDate Recorded LerbiflwscSsryryz58/11/2019Purpose - LifeAnswerDate RecordedPurpose and direction in hxalEjqgjqw58/11/2021ex and Gender InformationValueDate Recorded Sex Assigned at BirthNot on fileLegal UxrOtde3302/14/2015 9:00 PM EDTGender IdentityNot on fileSexual OrientationNot on file Plan of Treatment Health MaintenanceDue DateLast DoneCommentsDepression Bycfnghqc08/09/1969Tobacco Siofldnts81/09/1969Adult BMI Enzxsdosa38/09/1975DTaP,Tdap and Td Vaccines (1 - Tdap)1975Zoster (Shingles) Vaccine (1 of 2)2006Fall Risk Screening 2021Influenza Knjmydo6803/14/2025RSV ( or age 60+ yrs) (1 - 1-dose 75+ series)2031 Medical Devices Not on file
--- OUTSIDE RECORDS SUMMARY | 2025-05-25 10:46 | XMS_ITS | Patient Health Record ---
Author Organization [facility] [place] Address [address] [place] [address] Care Team Providers Care Audiovisual Tech Name Role Phone None, Unknown or Primary Care Provider Unavailab James Gutierrez Unavailable [phone] Allergies Allergen (clinical drug ingredient) Drug/Non Drug Allergy documented on EMR Reaction Allergy Type Onset Date Status oxycodone Oxycodone Unknown Drug Allergy Active Results Component Value Reference Range Notes PROF CHEM 8 (BAS METB) Reviewed date:08/24/2024 12:52:49 PM Interpretation: Performing Lab: Notes/Report: [facility] , Sodium 143 136-145 mmol/L Potassium4.73.5-5.1 mmol/YVnsvrrdt72712-891 mmol/LCarbon Mliumli79.421.0-32.0 mmol/LAnion Gap14.0Wkptqvj50555-656 mg/dLBlood Urea Cmaxgpqh74.07.0-18.0 mg/dL Creatinine1.620.70-1.30 mg/dLEstimated GFR ( Dacfwrn34>=60 mL/min/1.73m 2 Estimated GFR (Non- Ame43>=60 mL/min/1.73m 2BUN Creatinine Ratio17.3 Calcium7.78.5-10.1 mg/dLPerforming Lab:see noteML - [facility] LBCBC AUTO DIFF Reviewed date:08/24/2024 12:52:49 PM Interpretation: Performing Lab: Notes/Report: [facility] ,White Blood Count13.84.0-11.0 10 3/uLRed Blood Count3.504.70-6.10 10 6/uL Kcyemioizg63.514.0-18.0 g/vMPuraqvahrn66.842.0-54.0 %Mean Corpuscular Kdzpcq08.4 80.0-94.0 fLMean Corpuscular Tlvzmntbsa52.925.9-34.0 pgMean Corpuscular HGB Conc 33.029.9-35.2 g/dLRed Cell Distribution Width13.711.0-15.0 %Platelet Ophiv321 150-450 10 3/uLMean Platelet Volume9.29.5-13.5 fLNeutrophils Percent Auto81.1 43.0-75.0 %Lymphocytes Percent Auto8.920.5-60.0 %Monocytes Percent Auto9.11.7- 12.0 %Eosinophils Percent Auto0.10.9-7.0 %Basophils Percent Auto0.10.2-2.0 % Immature Granulocytes Pct Auto0.70.0-0.5 %Neutrophils Absolute Auto11.21.4-6.5 10 3/uLLymphocytes Absolute Auto1.21.2-3.8 10 3/uLMonocytes Absolute Auto1.30.3- 0.8 10 3/uLEosinophils Absolute Auto0.00.0-0.7 10 3/uLBasophils Absolute Auto0.0 0.0-0.1 10 3/uLImmature Granulocytes Abs Auto0.090.00-0.03 10 3/uLPerforming Lab:see noteML - [facility] Reason For Referral No Information Medications [...] due t o type 2 diabetes mellitus (074865059) Type 2 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) ActiveconfirmedProblemFoot ulcer due to type 2 diabetes mellitus (7656314662863) Type 2 diabetes mellitus with foot ulcer (E11.621)ActiveconfirmedProblemAcquired hallux valgus (48224143)Hallux valgus (acquired), left foot (M20.12)Active confirmedProblemAcquired hallux rigidus (6909102)Hallux rigidus, left foot (M20.22)ActiveconfirmedProblemPseudarthrosis after fusion or arthrodesis (276199133)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)Activeconfirmed ProblemPain associated with internal prosthetic device (disorder) (309088719) Pain due to internal orthopedic prosthetic devices, implants and grafts, initial encounter (T84.84XA)ActiveconfirmedProblemHistory of arthrodesis (123445605) Arthrodesis status (Z98.1)ActiveconfirmedProblemAcquired hallux rigidus (5013474)Acquired hallux rigidus of left foot (M20.22)ActiveconfirmedProblem Delayed healing of surgical wound (finding) (806590929)Delayed surgical wound healing (T81.89XA)ActiveconfirmedProblemPolyneuropathy due to type 2 diabetes mellitus (249200068)Diabetes mellitus with polyneuropathy (E11.42)Active confirmedProblemChronic foot ulcer, [...] ACCESS PPO PLUS LOCAL PLAN [address] [place] [phone] [id number] Ilya Kanwal Spouse - patient is the spouse of the insured 3 [place] [id number] Part A OnlyLance Caraballof - patient is [...]
--- OUTSIDE RECORDS SUMMARY | 2025-05-25 10:46 | XMS_ITS | Encounter Summary ---
Author Organization [facility] Address [address] [place] [address] Care Team Providers Care Rod Puller Name Role Phone Tulio Madrid MD Primary Care Provider [phone] Tulio Madrid MD Unavailable Tulio Madrid MD Primary Care Provider [phone] Encounter Details DateTypeDepartmentCare Team (Latest Contact Info)Mkbphsfhtot43/20/2023Clinisync Result Encounter [facility] External Department Unsolicited Provider, Generic External Data Social History Tobacco UseTypesPacks/DayYears UsedDateSmoking Tobacco: NeverSmokeless Tobacco: NeverSex and Gender InformationValueDate RecordedSex Assigned at BirthNot on fileLegal SrzAuuv9809/25/2022 7:24 PM EDTGender IdentityNot on fileSexual OrientationNot [...] EST Narrative 07/02/2023 10:38 AM EST [facility] ?[address] ? [place] [address] ?XRay Report ? Signed ? Patient: CORNELIA,CARLOS C ?MR#: [id number] ?? : 1955 ?Acct:[id number] ?? Age/Sex: 67 / M ?ADM Date: 12/20/23 ?? Loc: RAD ? Attending Dr: Tonio Raya D.P.M. ? Ordering Physician: Tonio Raya D.P.M. ?? Date of Service: 07/02/23 ?? Procedure(s): XR foot LT min 3V ?? Accession Number(s): [id number] ? cc: Tonio Raya D.P.M.; Tulio Madrid M.D. ? [facility] ? [address] ? [place] [address] ? Patient Name: ?? CARLOS Farrar CORNELIA ? MRN: [facility]:[id number] ? date: 1955 ?Sex: M ?? Assigned Patient Location: RAD ?? Current Patient Location: RAD ?? Accession/Order Number: [id number] ?? Exam Date: 07/02/2023 ??08:44 ?Report Date: [...] 1038 ? DD/ 1035 ? TD/TT: ? Potato Grader: Procedure Note Radiology, Radiologist, - 07/02/2023 [place] [address] XRay Report Signed Patient: CARLOS LOCKE CMR#: [id number] : 1955cct:[id number] Age/Sex: 67 / MADM Date: 07/02/23 Loc: RAD Attending Dr: Tonio Raya D.P.M. Ordering Physician: Tonio Raya D.P.M. Date of Service: 07/02/23 Procedure(s): XR foot LT min 3V Accession Number(s): [id number] cc: Tonio Raya D.P.M.; Tulio Madrid M.D. The [place] [id number] Patient Name: CARLOS LOCKE MRN: [id number] date: 1955 Sex: M Assigned Patient Location: [facility] Current Patient Location: [facility] Accession/Order Number: [id number] Exam Date: 07/02/2023 08:44 Report Date: 07/02/2023 [...] M.D. Signed By:07/02/23 1038 DD/ 1035 TD/TT: Potato Grader: Authorizing ProviderResult TypeResult StatusGeneric External Data Provider CLINISYNC IMAGINGFinal Result documented in this encounter Visit Diagnoses Not on filedocumented in this encounter Care Teams Team MemberRelationshipSpecialtyStart DateEnd Date Tulio Madrid MD PCP - GeneralFamily Medicine Tulio Madrid MD [address] [place] [address] PCP - Wilfrid Tee04/13/2311 Tulio Madrid MD [address] [place] [address] PCP - GeneralFamily Medicine01/12/24documented as of this encounter
--- OUTSIDE RECORDS SUMMARY | 2025-05-25 10:46 | XMS_ITS | Encounter Summary ---
Author Organization [facility] Address [address] [place] [address] Care Team Providers Care Customer Care Coordinator Name Role Phone Tulio Madrid MD Primary Care Provider [phone] Tulio Madrid MD Unavailable Tulio Madrid MD Primary Care Provider [phone] Encounter Details DateTypeDepartmentCare Team (Latest Contact Info)Aayqavhiier17/23/2023Clinisync Result Encounter [facility] External Department Unsolicited Provider, Generic External Data Social History Tobacco UseTypesPacks/DayYears UsedDateSmoking Tobacco: NeverSmokeless Tobacco: NeverSex and Gender InformationValueDate RecordedSex Assigned at BirthNot on fileLegal DkaQcao0409/25/2022 7:24 PM EDTGender IdentityNot on fileSexual OrientationNot [...] EST Narrative 07/05/2023 1:54 AM EST The [facility] ?[address] ? [place] [address] ? CT Scan Report ? Signed ? Patient: CORNELIA,WARNER C ?MR#: [id number] ?? : 1955 ?Acct:[id number] ?? Age/Sex: 67 / M ?ADM Date: 12/22/23 ?? Loc: CT ? Attending Dr: James Raya D.P.M. ? Ordering Physician: James Raya D.P.M. ?? Date of Service: 07/04/23 ?? Procedure(s): CT foot LT wo con ?? Accession Number(s): [id number] ? cc: Tulio Madrid M.D. ? [facility] ? [address] ? [place] [address] ? Patient Name: ?? WARNER Farrar CORNELIA ? MRN: [facility]:[id number] ? date: 1955 ?Sex: M ?? Assigned Patient Location: CT ?? Current Patient Location: ? Accession/Order Number: [id number] ?? Exam Date: 07/04/2023 ??10:18 ?Report Date: [...] 0154 ? DD/ 0152 ? TD/TT: ? Supervisor Pipe Joints: Procedure Note Radiology, Radiologist, - 07/05/2023 [place] [address] CT Scan Report Signed Patient: WARNER LOCKE CMR#: [id number] : 1955cct:[id number] Age/Sex: 67 / MADM Date: 07/04/23 Loc: CT Attending Dr: James Raya D.P.M. Ordering Physician: James Raya D.P.M. Date of Service: 07/04/23 Procedure(s): CT foot LT wo con Accession Number(s): [id number] cc: Tulio Madrid M.D. The [place] [address] Patient Name: WARNER LOCKE MRN: [id number] date: 1955 Sex: M Assigned Patient Location: CT Current Patient Location: Accession/Order Number: [id number] Exam Date: 07/04/2023 10:18 Report Date: 07/05/2023 [...] Kenny M.D. Signed By:07/05/23153 DD/ 1 TD/TT: Supervisor Pipe Joints: Authorizing ProviderResult TypeResult StatusGeneric External Data Provider CLINISYNC IMAGINGFinal Result documented in this encounter Visit Diagnoses Not on filedocumented in this encounter Care Teams Team MemberRelationshipSpecialtyStart DateEnd Date Tulio Madrid MD PCP - GeneralFamily Medicine Tulio Madrid MD [address] [place] [address] [facility] Tulio Madrid MD [address] [place] [address] [facility] - [facility]01/12/24documented as of this encounter
--- OUTSIDE RECORDS SUMMARY | 2025-05-25 10:47 | XMS_ITS | Encounter Summary ---
Author Organization [facility] Address [address] [place] [address] Care Team Providers Care Slater Apprentice Name Role Phone Tulio Madrid MD Primary Care Provider [phone] Tulio Madrid MD Unavailable Tulio Madrid MD Primary Care Provider [phone] Encounter Details DateTypeDepartmentCare Team (Latest Contact Info)Zntqmhfifea93/28/2024Clinisync Result Encounter [facility] External Department Unsolicited Provider, Generic External Data Social History Tobacco UseTypesPacks/DayYears UsedDateSmoking Tobacco: NeverSmokeless Tobacco: NeverSex and Gender InformationValueDate RecordedSex Assigned at BirthNot on fileLegal VrjKxan5709/25/2022 7:24 PM EDTGender IdentityNot on fileSexual OrientationNot [...] ?[address] ? [place] [address] ?XRay Report ? Signed ? Patient: CORNELIA,WARNER C ?MR#: [id number] ?? : 1955 ?Acct:[id number] ?? Age/Sex: 68 / M ?ADM Date: 03/27/24 ?? Loc: EC ? Attending Dr: James Raya D.P.M. ? Ordering Physician: James Raya D.P.M. ?? Date of Service: 10/08/23 ?? Procedure(s): XR foot LT min 3V ?? Accession Number(s): [id number] ? cc: James Raya D.P.M.; Tulio Madrid M.D. ? [facility] ? [address] ? [place] [address] ? Patient Name: ?? WARNER Farrar CORNELIA ? MRN: [facility]:[id number] ? date: 1955 ?Sex: M ?? Assigned Patient Location: EC ?? Current Patient Location: ? Accession/Order Number: [id number] ?? Exam Date: 10/08/2023 ??08:55 ?Report Date: [...] 0553 ? DD/ 0550 ? TD/TT: ? Hotel Custodian: Procedure Note Radiology, Radiologist, MD - 10/09/2023 [place] [address] XRay Report Signed Patient: WARNER LOCKE CMR#: [id number] : 1955cct:[id number] Age/Sex: 68 / MADM Date: 10/08/23 Loc: EC Attending Dr: James Raya D.P.M. Ordering Physician: James Raya D.P.M. Date of Service: 10/08/23 Procedure(s): XR foot LT min 3V Accession Number(s): [id number] cc: James Raya D.P.M.; Tulio Madrid M.D. The [place] [address] Patient Name: WARNER LOCKE MRN: [facility]:[id number] date: 1955 Sex: M Assigned Patient Location: Current Patient Location: Accession/Order Number: [id number] Exam Date: 10/08/2023 08:55 Report Date: 10/09/2023 [...] M.D. Signed By:10/09/23 0553 DD/ 0550 TD/TT: Hotel Custodian: Authorizing ProviderResult TypeResult StatusGeneric External Data Provider CLINISYNC IMAGINGFinal Result documented in this encounter Visit Diagnoses Not on filedocumented in this encounter Care Teams Team MemberRelationshipSpecialtyStart DateEnd Date Tulio Madrid MD PCP - GeneralFaarly Medicine Tulio Madrid MD [address] [place] [address] PCP - [place] Pbmlsrkdkp71/1/ Tulio Madrid MD [address] [place] [address] [facility] - [facility]01/12/24documented as of this encounter
--- OUTSIDE RECORDS SUMMARY | 2025-05-25 10:47 | XMS_ITS | Encounter Summary ---
Author Organization [facility] Address [address] [place] [address] Care Team Providers Care Melter Assistant Name Role Phone Tulio aMdrid MD Unavailable Tulio Madrid MD Primary Care Provider [phone] Encounter Details DateTypeDepartmentCare Team (Latest Contact Info)Oknjdmmwvrx02/05/2024Clinisync Result Encounter [facility] External Department Unsolicited Provider, Generic External Data Social History Tobacco UseTypesPacks/DayYears UsedDateSmoking Tobacco: NeverSmokeless Tobacco: NeverSex and Gender InformationValueDate RecordedSex Assigned at BirthNot on fileLegal KphIchj9109/25/2022 7:24 PM EDTGender IdentityNot on fileSexual OrientationNot [...] EST Narrative 05/18/2024 6:56 AM EST [facility] ?[address] ? [place] [address] ?XRay Report ? Signed ? Patient: CORNELIA,CARLOS C ?MR#: [id number] ?? : 1955 ?Acct:[id number] ?? Age/Sex: 68 / M ?ADM Date: 11/04/24 ?? Loc: RAD ? Attending Dr: Liz MARTELL ? Ordering Physician: Liz Hernandez ?? Date of Service: 05/17/24 ?? Procedure(s): XR abdomen 1V ?? Accession Number(s): [id number] ? cc: Tulio Madrid M.D.; Liz Hernandez ? [facility] ? [address] ? [place] [address] ? Patient Name: ?? CARLOS LOCKE ? MRN: [facility]:[id number] ? date: 1955 ?Sex: M ?? Assigned Patient Location: RAD ?? Current Patient Location: ? Accession/Order Number: [id number] ?? Exam Date: 05/17/2024 ??08:50 ?Report Date: [...] [birth year] ? DD/ 06 ? TD/TT: ? Back Hand: Procedure Note Radiology, Radiologist, MD - 05/18/[address] [address] XRay Report Signed Patient: CARLOS LOCKE CMR#: [id number] : 7Acct:[id number] Age/Sex: 68 / MADM Date: 05/17/24 Loc: RAD Attending Dr: Liz MARTELL Ordering Physician: Liz Hernandez Date of Service: 05/17/24 Procedure(s): XR abdomen 1V Accession Number(s): [id number] cc: Tulio Madrid M.D.; Liz Hernandez [address] [address] Patient Name: CARLOS LOCKE MRN: [facility]:[id number] date: 1955 Sex: M Assigned Patient Location: RAD Current Patient Location: Accession/Order Number: [id number] Exam Date: 05/17/2024 08:50 Report Date: 05/18/2024 [...] Racheal Graves M.D. Signed By:05/18/2456 DD/ TD/TT: Back Hand: Authorizing ProviderResult TypeResult StatusGeneric External Data Provider CLINISYNC IMAGINGFinal Result documented in this encounter Visit Diagnoses Not on filedocumented in this encounter Care Teams Team MemberRelationshipSpecialtyStart DateEnd Date Tulio Madrid MD [address] [place] [address] FORREST - Wilfrid Yncordpjjw25/1/ Tulio Madrid MD [address] [place] [address] [facility]01/12/24documented as of this encounter
--- OUTSIDE RECORDS SUMMARY | 2025-05-25 10:47 | XMS_ITS | Clinical Summary ---
Author Organization [facility] Address [address] [place] [address] Care Team Providers Care Graining Operator Name Role Phone Tulio Madrid MD Primary Care Provider [phone] Allergies Active AllergyReactionsCriticalityNoted KtnqCwydcubrEilpcpiwh27/18/2023 Other Reaction(s): Hyperactive behavior, Other Oxycodone-AcetaminophenItching,IzimHhj8907/31/2022 Medications MedicationSigDispense QuantityRefillsLast FilledStart DateEnd DateStatus allopurinol [...] hyperglycemia, without long-term current use of insulin ([facility])TAKE 1 TABLET BY MOUTH EVERY DAY 90 [...] hyperglycemia, without long-term current use of insulin ([facility])INJECT 2 MG SUBCUTANEOUSLY WEEKLY 9 mL 5Active febuxostat (Uloric) 40 MG tablet Indications:Type 2 diabetes mellitus with hyperglycemia, without long-term current use of insulin (HCC),Morbid obesity (CMS-HCC),Polyneuropathy due to type 2 diabetes mellitus ([facility])Take 1 tablet (40 mg) by mouth Daily [...] Indications:Polyneuropathy due to type 2 diabetes mellitus ([facility])TAKE 1 CAPSULE BY MOUTH IN THE MORNING, EVENING AND BEFORE BEDTIME 270 capsule 5Active Active Problems ProblemNoted DateDiagnosed DateEncounter for long-term current use of medication 08/05/2024Screening PSA (prostate specific antigen)08/05/2024Encounter for preoperative exjmailzzn64/02/2025 Assessment & Plan (07/15/2024 9:48 AM EST): Able to proceed with upcoming surgery at low risk for complications. History of DM but controlled with medication. No CAD or HTN. Not having chest pain or palpitations. Recommend routine PAT. Seasonal allergic rhinitis due to vcngmi8101/12/2024 Assessment & Plan (01/12/2025 9:44 AM EDT): Symptoms controlled with medication and continue. Assessment & Plan (01/12/2024 9:44 AM EDT): Symptoms controlled with medication and continue. Primary /01/2024 Assessment & Plan (01/12/2025 9:43 AM EDT): Sleeping well with medication and continue. Assessment & Plan (01/12/2024 9:44 AM EDT): Not sleeping well but wants to continue melatonin. If worsens can try trazodone. Polyneuropathy due to type 2 diabetes gownidcc90/10/2024 Assessment & Plan (07/15/2024 9:49 AM EST): Neuropathy stable and continue neurontin. Assessment & Plan (01/12/2024 9:44 AM EDT): Neuropathy stable and continue neurontin. Primary osteoarthritis of knees, qpsfufsir93/10/2024nnual physical exam 07/23/2023 Assessment & Plan (07/15/2024 [...] daily Aspirin therapy. DDD (degenerative disc disease), vjpjcj8406/26/2023 Assessment & Plan (01/12/2025 9:43 AM EDT): Pain stable and follow with pain management. Assessment & Plan (01/12/2024 9:44 AM EDT): Pain stable and follow with pain management. Wvsybdsfqgjr79/14/2023 Assessment & Plan (07/15/2024 9:51 AM EST): Due for labs. Arthritis, gouty108/27/2022 Assessment & Plan (01/12/2025 9:43 AM EDT): No flares and continue allopurinol. Assessment & Plan (01/12/2024 9:43 AM EDT): No flares and continue allopurinol. Male fourcvjcookg94/14/2023NAFL (nonalcoholic fatty liver)06/26/2023lass 2 severe obesity due [...] with hyperglycemia, without long-term current use of ovicmfs2606/26/2023 Assessment & Plan (01/12/2025 9:44 AM EDT): [...] Stick to ADA diet and limit carbs. Lmwdhyhepyqg15/03/2023ge-related nuclear cataract of both eyes03/10/2023 Resolved Problems ProblemNoted DateDiagnosed DateResolved DateAbscess of abdominal wall10/13/2024 01/12/2025 Assessment & Plan (10/13/2024 1:51 PM EDT): Recent abscess but improved after drainage. Use heat PRN. Treat with bactrim. Cover with neosporin. Encounters DateTypeDepartmentCare VocqBrdguwdigtr20/24/2025Refill [facility] [address] [place] [address] Tulio Madrid MD 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)from Last 3 Months Family History Medical HistoryRelationNameCommentsCancerFatherDiabetesFatherHypertensionFather DiabetesMotherHypertensionMotherRelationNameStatusCommentsFatherMother Social History Tobacco UseTypesPacks/DayYears UsedDateSmoking Tobacco: NeverSmokeless Tobacco: Never Tobacco Cessation:Counseling Given: Not Answered Sex and Gender InformationValueDate RecordedSex Assigned at BirthNot on file Legal CtjUxnw9809/25/2022 7:24 PM EDTGender IdentityNot on fileSexual Orientation Not on file Last Filed Vital Signs Vital SignReadingTime TakenCommentsBlood Zhhfoody888/8407 8:53 AM EDT Qqzrm060201/12/2025 8:53 AM ASEIrebakrnklw70.2 ??C (97.1 ??F)01/12/2025 8:53 AM EDTRespiratory Zqwm212001/12/2025 8:53 AM EDTOxygen Phyevxpzwx03%01/12/2025 8:53 AM EDTInhaled Oxygen Concentration--Gapurg210 kg (293 lb)01/12/2025 8:53 AM EDT Oueipp847 cm (6' 2 )01/12/2025 8:53 AM EDTBody Mass Index37.62001/12/2025 8:53 AM EDT Plan of Treatment Health MaintenanceDue DateLast DoneCommentsCT Eymvboopearj00/09/1956FIT-DNA 1955FIT1955FOBT1955 3479Mmmjtzvcdvpfy89/09/1956Pneumococcal Vaccine: 65+ Years (2 of 2 - PCV)OVID-19 Vaccine (2024- season)/, 04/20/2023, 04/20/2023, Additional history existsInfluenza Vaccine (#1)/01/2024, 04/12/2023, 04/17/2022, Additional history dgjufsWgyajovznxq82/02/202701/08/2016Colorectal Cancer Pumcajasc60/02/2027 Insurance Care Teams Team MemberRelationshipSpecialtyStart DateEnd Date Tulio Madrid MD [facility] - [facility]/12/24
--- OUTSIDE RECORDS SUMMARY | 2025-05-25 10:47 | XMS_ITS | Encounter Summary ---
Author Organization [facility] Address [address] [place] [address] Care Team Providers Care Slot Key Person Name Role Phone Tulio Madrid MD Primary Care Provider [phone] Encounter Details DateTypeDepartmentCare Team (Latest Contact Info)Sbdtiejwjjl71/07/2025linisync Result Encounter [facility] External Department Unsolicited Provider, Generic External Data Social History Tobacco UseTypesPacks/DayYears UsedDateSmoking Tobacco: NeverSmokeless Tobacco: NeverSex and Gender InformationValueDate RecordedSex Assigned at BirthNot on fileLegal KzbWnbl4009/25/2022 7:24 PM EDTGender IdentityNot on fileSexual OrientationNot [...] EST Narrative 07/20/2024 5:07 PM EST [facility] ?[address] ? [place] [address] ?XRay Report ? Signed ? Patient: CORNELIA,WARNER Farrar ?MR#: [id number] ?? : 1955 ?Acct:[id number] ?? Age/Sex: 68 / M ?ADM Date: 07/20/ ?? Loc: PST ? Attending Dr: Daniele Valencia M.D. ? Ordering Physician: Daniele Valencia M.D. ?? Date of Service: 07/20/24 ?? Procedure(s): XR chest 2V ?? Accession Number(s): [id number] ? cc: Daniele Valencia M.D.; Tulio Madrid M.D. ? [facility] ? [address] ? [place] [address] ? Patient Name: ?? WARNER Farrar CORNELIA ? MRN: [facility]:[id number] ? date: 1955 ?Sex: M ?? Assigned Patient Location: [facility] ?? Current Patient Location: LAB ?? Accession/Order Number: [id number] ?? Exam Date: 07/20/2024 ??10:06 ?Report Date: [...] 1707 ? DD/ 04 ? TD/TT: ? Senior C Developer: Procedure Note Radiology, Radiologist, - 07/20/2024 [place] [address] XRay Report Signed Patient: WARNER LOCKE CMR#: [id number] : 1955cct:[id number] Age/Sex: 68 / MADM Date: 07/20/24 Loc: PST Attending Dr: Daniele Valencia M.D. Ordering Physician: Daniele Valencia M.D. Date of Service: 07/20/24 Procedure(s): XR chest 2V Accession Number(s): [id number] cc: Daniele Valencia M.D.; Tulio Madrid M.D. The [address] [address] Patient Name: WARNER LOCKE MRN: [facility]:[id number] date: 1955 Sex: M Assigned Patient Location: [facility] Current Patient Location: LAB Accession/Order Number: [id number] Exam Date: 07/20/2024 10:06 Report Date: 07/20/2024 [...] Mcarthur M.D. Signed By:07/20/241706 DD/ 04 TD/TT: Senior C Developer: Authorizing ProviderResult TypeResult StatusGeneric External Data Provider CLINISYNC IMAGINGFinal Result documented in this encounter Visit Diagnoses Not on filedocumented in this encounter Care Teams Team MemberRelationshipSpecialtyStart DateEnd Date Tulio Madrid MD PCP - GeneralFamily Medicine01/12/24documented as of this encounter
--- OUTSIDE RECORDS SUMMARY | 2025-05-25 10:47 | XMS_ITS | Encounter Summary ---
Author Organization [facility] Address [address] [place] [address] Care Team Providers Care Ultimate Hoops Scoreboard Operator Name Role Phone Tulio Madrid MD Primary Care Provider [phone] Encounter Details DateTypeDepartmentCare Team (Latest Contact Info)Kjxomwimcqc15/16/2024Clinisync Result Encounter [facility] External Department Unsolicited Provider, Generic External Data Social History Tobacco UseTypesPacks/DayYears UsedDateSmoking Tobacco: NeverSmokeless Tobacco: NeverSex and Gender InformationValueDate RecordedSex Assigned at BirthNot on fileLegal LfxUawz6009/25/2022 7:24 PM EDTGender IdentityNot on fileSexual OrientationNot on filedocumented as of this encounter Plan of Treatment Not on file documented as of this encounter Procedures Procedure NamePriorityDate/TimeAssociated DiagnosisCommentsCA ECHO DOPPLER SQAZQXZP59/16/2024 5:49 PM EST documented in this encounter Results * CA ECHO DOPPLER COMPLETE (06/28/2024 5:49 PM EST)Anatomical RegionLaterality ModalityOtherSpecimen (Source)Anatomical Location / LateralityCollection Method / VolumeCollection TimeReceived Time06/28/2024 5:49 PM EST Narrative 06/28/2024 5:50 PM EST [facility] ?[address] ? [place] [address] ? Cardiology Report ? Signed ? Patient: CORNELIA,WARNER C ?MR#: [id number] ?? : 1955 ?Acct:[id number] ?? Age/Sex: 68 / M ?ADM Date: 12/16/24 ?? Loc: CARD ? Attending Dr: Ken Mercer M.D. ? Ordering Physician: Ken Mercer M.D. ?? Date of Service: 06/28/24 ?? Procedure(s): CA echo doppler complete ?? Accession Number(s): [id number] ? cc: Ken Mercer M.D.; Tulio Madrid M.D. ? Patient Name: ? WARNER CORNELIA ? MR#: [id number] ? : 1955 ? Exam Date: 06/28/2024 [...] 1750 ? DD/ 1749 ? TD/TT: ? Inside Sales Advisor: Procedure Note Radiology, Radiologist, MD - 06/28/[address] [address] Cardiology Report Signed Patient: WARNER LOCKE CMR#: [id number] : 7Acct:[id number] Age/Sex: 68 / MADM Date: 06/28/24 Loc: CARD Attending Dr: Ken Mercer M.D. Ordering Physician: Ken Mecrer M.D. Date of Service: 06/28/24 Procedure(s): CA echo doppler complete Accession Number(s): [id number] cc: Ken Mercer M.D.; Tulio Madrid M.D. Patient Name: WARNER LOCKE MR#: [id number] : 1955 Exam Date: 06/28/2024 Ordering Doctor: [...] 17:49 Dictated By: SCOUT MCMANUS Signed By:06/28/24 2957 DD/ 6379 TD/TT: Inside Sales Advisor: Authorizing ProviderResult TypeResult StatusGeneric External Data Provider CLINISYNC IMAGINGFinal Result documented in this encounter Visit Diagnoses Not on filedocumented in this encounter Care Teams Team MemberRelationshipSpecialtyStart DateEnd Date Tulio Madrid MD PCP - GeneralFamily Medicine01/12/24documented as of this encounter
--- OUTSIDE RECORDS SUMMARY | 2025-05-25 10:47 | XMS_ITS | Encounter Summary ---
Author Organization [facility] Address [address] [place] [address] Care Team Providers Care Marketing Automation Specialist Name Role Phone Tulio Madrid MD Primary Care Provider [phone] Encounter Details DateTypeDepartmentCare Team (Latest Contact Info)Kejmfnmzkyz59/11/2024Clinisync Result Encounter [facility] External Department Unsolicited Provider, Generic External Data Social History Tobacco UseTypesPacks/DayYears UsedDateSmoking Tobacco: NeverSmokeless Tobacco: NeverSex and Gender InformationValueDate RecordedSex Assigned at BirthNot on fileLegal TuaNvae3209/25/2022 7:24 PM EDTGender IdentityNot on fileSexual OrientationNot on filedocumented as of this encounter Plan of Treatment Not on file documented as of this encounter Procedures Procedure NamePriorityDate/TimeAssociated DiagnosisCommentsXR KNEE 4+ VIEWS TVXJMORUU89/11/2024 6:16 AM EST documented in this encounter Results * XR knee 4+ views bilateral (06/23/2024 6:16 AM EST)Anatomical RegionLaterality ModalityLower Extremities, KneeBilateralRadiographic ImagingSpecimen (Source) Anatomical Location / LateralityCollection Method / VolumeCollection Time Received Time06/23/2024 6:16 AM EST Narrative 06/23/2024 6:19 AM EST [facility] ?[address] ? [place] [address] ?XRay Report ? Signed ? Patient: CORNELIA,WARNER C ?MR#: [id number] ?? : 1955 ?Acct:[id number] ?? Age/Sex: 68 / M ?ADM Date: 12/09/24 ?? Loc: EC ? Attending Dr: Daniele Valencia M.D. ? Ordering Physician: Daniele Valencia M.D. ?? Date of Service: 06/21/24 ?? Procedure(s): XR knee MARIE 4V ?? Accession Number(s): [id number] ? cc: Daniele Vlaencia M.D.; Tulio Madrid M.D. ? [facility] ? [address] ? [place] [address] ? Patient Name: ?? WARNER Farrar CORNELIA ? MRN: [facility]:[id number] ? date: 1955 ?Sex: M ?? Assigned Patient Location: EC ?? Current Patient Location: ? Accession/Order Number: [id number] ?? Exam Date: 06/21/2024 ??13:16 ?Report Date: 06/23/2024 ??06:16 ? At the request of: ?? DANIELE VALENCIA ? Procedure: ??XR knee MARIE 4V ? EXAMINATION: XR knee MARIE 4V ? HISTORY: BILATERAL KNEE PAIN ? COMPARISON: XR knee bilateral 03/24/2023 ? FINDINGS: ? RIGHT FINDINGS: ?? BONES: Marked narrowing of the medial joint space with vbhd-rl-ifda ?? articulation. Periarticular degenerative osteophytes involving all 3 ?? compartments; large involving the medial compartment. ?? SOFT TISSUES: No visible soft tissue swelling. ?? OTHER: Small joint effusion. ? LEFT FINDINGS: ?? BONES: Marked narrowing of the medial joint space with rmgd-kb-ierw ?? articulation. Periarticular degenerative osteophytes involving all [...] 0619 ? DD/ 0616 ? TD/TT: ? Lead Painter: Procedure Note Radiology, Radiologist, MD - 12/11/[address] [address] XRay Report Signed Patient: WARNER LOCKE CMR#: [id number] : 1955cct:[id number] Age/Sex: 68 / MADM Date: 06/21/24 Loc: EC Attending Dr: Daniele Valencia M.D. Ordering Physician: Daniele Valencia M.D. Date of Service: 06/21/24 Procedure(s): XR knee MARIE 4V Accession Number(s): [id number] cc: Daniele Valencia M.D.; Tulio Madrid M.D. The [place] [address] Patient Name: WARNER LOCKE MRN: [facility]:[id number] date: 1955 Sex: M Assigned Patient Location: Current Patient Location: Accession/Order Number: [id number] Exam Date: 06/21/2024 13:16 Report Date: 06/23/2024 06:16 At the request of: DANIELE VALENCIA Procedure: XR knee MARIE 4V EXAMINATION: XR knee MARIE 4V HISTORY: BILATERAL KNEE PAIN COMPARISON: XR knee bilateral 03/24/2023 FINDINGS: RIGHT FINDINGS: BONES: Marked narrowing of the medial joint space with gpmr-tl-hocw articulation. 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 SOFT TISSUES: No visible soft tissue swelling. OTHER: Small joint effusion. LEFT FINDINGS: BONES: Marked narrowing of the medial joint space with drle-sc-ujjv articulation. Periarticular degenerative osteophytes involving all 3 [...] Kenny M.D. Signed By:06/23/24618 DD/ 5 TD/TT: Lead Painter: Authorizing ProviderResult TypeResult StatusGeneric External Data ProviderIMG XR PROCEDURESFinal Result documented in this encounter Visit Diagnoses Not on filedocumented in this encounter Care Teams Team MemberRelationshipSpecialtyStart DateEnd Date Tulio Madrid MD PCP - GeneralFamily Medicine01/12/24documented as of this encounter
--- OUTSIDE RECORDS SUMMARY | 2025-05-25 10:47 | XMS_ITS | Encounter Summary ---
Author Organization [facility] Address [address] [place] [address] Care Team Providers Care Bottle Inspector Name Role Phone Tulio Madrid MD Unavailable Tulio Madrid MD Primary Care Provider [phone] Encounter Details DateTypeDepartmentCare Team (Latest Contact Info)Sfosintnrxc46/01/2024Clinisync Result Encounter [facility] External Department Unsolicited Provider, Generic External Data Social History Tobacco UseTypesPacks/DayYears UsedDateSmoking Tobacco: NeverSmokeless Tobacco: NeverSex and Gender InformationValueDate RecordedSex Assigned at BirthNot on fileLegal OveUdhx0209/25/2022 7:24 PM EDTGender IdentityNot on fileSexual OrientationNot [...] EDT Narrative 02/12/2024 6:26 AM EDT [facility] ?[address] ? [place] [address] ?XRay Report ? Signed ? Patient: CORNELIA,WARNER C ?MR#: [id number] ?? : 1955 ?Acct:[id number] ?? Age/Sex: 68 / M ?ADM Date: 07/31/24 ?? Loc: EC ? Attending Dr: James Raya D.P.M. ? Ordering Physician: James Raya D.P.M. ?? Date of Service: 02/11/24 ?? Procedure(s): XR foot LT min 3V ?? Accession Number(s): [id number] ? cc: James Raya D.P.M.; Tulio Madrid M.D. ? [facility] ? [address] ? [place] [address] ? Patient Name: ?? WARNER Farrar CORNELIA ? MRN: [facility]:[id number] ? date: 1955 ?Sex: M ?? Assigned Patient Location: EC ?? Current Patient Location: ? Accession/Order Number: [id number] ?? Exam Date: 02/11/2024 ??10:36 ?Report Date: [...] ?02/12/24625 ? DD/ 3 ? TD/TT: ? Staffing Consultant: Procedure Note Radiology, Radiologist, MD - 02/12/[address] [address] XRay Report Signed Patient: WARNER LOCKE CMR#: [id number] : 1955cct:[id number] Age/Sex: 68 / MADM Date: 02/11/24 Loc: EC Attending Dr: James Raya D.P.M. Ordering Physician: James Raya D.P.M. Date of Service: 02/11/24 Procedure(s): XR foot LT min 3V Accession Number(s): [id number] cc: James Raya D.P.M.; Tulio Madrid M.D. [place] [address] Patient Name: WARNER LOCKE MRN: [id number] date: 1955 Sex: M Assigned Patient Location: EC Current Patient Location: Accession/Order Number: [id number] Exam Date: 02/11/2024 10:36 Report Date: 02/12/2024 [...] Kenny M.D. Signed By:02/12/24625 DD/ 3 TD/TT: Staffing Consultant: Authorizing ProviderResult TypeResult StatusGeneric External Data Provider CLINISYNC IMAGINGFinal Result documented in this encounter Visit Diagnoses Not on filedocumented in this encounter Care Teams Team MemberRelationshipSpecialtyStart DateEnd Date Tulio Madrid MD [address] [place] [address] [facility] Tulio Madrid MD [address] [place] [address] [facility] - [facility]/12/24documented as of this encounter
--- OUTSIDE RECORDS SUMMARY | 2025-05-25 10:48 | XMS_ITS | CCD ---
Author Organization [facility] Care Team Providers Care Novelty Chain Maker Name Role Phone Dominikjamaal Racheal Unavailable Ant [...] ., DR FELISA Juarez Primary Care Unavailable [facility] [place], DR STEWART Attending Unavailable [facility] [place], DR STEWART Admitting Unavailable [facility] [place], DR STEWART Consulting Unavailable [facility], DR RACHEAL Ayala Admitting Unavailable [facility], DR RACHEAL Ayala Consulting Unavailable [facility], DR RACHEAL Ayala Attending Unavailable BERRIOS ., DR FELISA Juarez Primary Care Unavailable [facility], DR ELIN Oliva Consulting Unavailable BERRIOS ., [...] Unavailable BERRIOS, FELISA Juarez Primary Care Physician [phone] TULIO RUGGIERO Primary Care Physician Tulio Ruggiero [...] Provider Tulio Ruggiero MD Primary Care Provider [phone] Allergies Allergy ClassificationReported Allergen(s)Allergy TypeDate of OnsetReaction(s) Facility (3 sources)Acetaminophen / oxyCODONEDrug AllergyUnknowB[facility] [place] Other (20 sources)Acetaminophen / oxyCODONE; Translations: [OXYCODONE-ACETAMINOPHEN] Drug Cqqxmlk21-81-6928Aabxahz, [facility] (20 sources)oxyCODONE; Translations: [OXYCODONE]Drug Mjocmca00-07-0151 Hyperactive behavior (finding)[facility] Repository (1 source)Acetaminophen / oxyCODONEDrug AllergyThe [facility] Repository (1 source)oxyCODONE; Translations: [OxyCODONE Hydrochloride]Drug [facility]ergyUniversity [facility] Medications Current Medications MedicationDrug Class(es)DatesSig (Normalized)Sig (Original)allopurinol 300 mg oral tablet (20 sources)Xanthine Oxidase Inhibitorallopurinol (Zyloprim) 300 MG tablet 1 (one) time each day at the same time. Activeatorvastatin 20 mg oral tablet (20 sources)HMG-CoA Reductase InhibitorStart: 95-43-9601cwbp 1 tablet by mouth at bedtimeatorvastatin (Lipitor) 20 MG tablet Indications: Dyslipidemia Take 1 tablet (20 mg) by mouth at bedtime 90 tablet 3 09/30/2023 ActiveAtorvastatin Calcium Activebaclofen 10 mg oral tablet (20 sources)gamma-Aminobutyric Acid-ergic AgonistStart: 63-35-5031woyc 1 tablet by mouth at bedtimebaclofen 10 mg Tab 10 mg = 1 tab(s), Oral, Bedtime, Refills(s) 0, Muscle pain Start Date: 11/17/20 Status: Orderedtake 1 tablet by mouth at bedtimebaclofen (Lioresal) 20 MG tablet Take 1 tablet by mouth at bedtime. 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) , Type 2 diabetes mellitus with hyperglycemia, without long-term current use of insulin (CMS/HCC) TAKE 1 TABLET BY MOUTH THREE TIMES A DAY NEEDED FOR GOUT 60 tablet 3 08/06/2023 ActiveColchicine Activecyclobenzaprine hydrochloride 10 mg oral tablet (2 sources)Muscle RelaxantStart: 56-70-7639wvfdnitifospfnz 10 mg Tab Refills(s) 0 Start Date: 11/04/23 Status: OrdereddiazePAM 10 mg oral tablet (20 sources)BenzodiazepinediazePAM (Valium) 10 MG tablet Take by mouth every 8 (eight) hours if needed Activediclofenac sodium 50 mg delayed release oral tablet (20 sources)Nonsteroidal Anti-inflammatory DrugStart: 16-22-3007zsaakqgewl sodium 50 mg Oral EC Tab Refills(s) 0 Start Date: 11/04/23 Status: Ordered febuxostat 40 mg oral tablet (20 sources)Xanthine Oxidase InhibitorStart: 14-45-0956xccfyvbqco (Uloric) 40 MG tablet Indications: Type 2 diabetes mellitus with hyperglycemia, without long- term current use of insulin (HCC) , Morbid obesity (CMS-HCC) , 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) Take 1 tablet (40 mg) by mouth Daily 90 tablet 3 11/03/2024 ActiveStart: 04-25-2020 End: 88-77-2978xulwvcugxf (Uloric) 40 MG tablet Indications: Morbid obesity (CMS/HCC) , Polyneuropathy due to type2 diabetes mellitus (CMS/HCC) , Type 2 diabetes mellitus with hyperglycemia, without long-term current use of insulin (CMS/HCC) TAKE 1 TABLET BY MOUTH EVERY DAY 90 tablet 3 08/09/2024 Active Febuxostat Activegabapentin 300 mg oral capsule (20 sources)Anti-epileptic AgentStart: 21-57-3026lsht 1 capsule by mouth at bedtimegabapentin (Neurontin) 300 MG capsule Indications: 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) TAKE 1 CAPSULE BY MOUTH IN THE MORNING, EVENING AND BEFORE BEDTIME 270 capsule 03/07/2025 ActiveStart: 11-15-2020 End: 30-39-9687clvt 1 capsule by mouth in the morning, [...] oral tablet (20 sources)Angiotensin Converting Enzyme InhibitorStart: 55-87-8947wafxemprgc 5 MG tablet Indications: Morbid obesity (CMS-HCC) , 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) , Type 2 diabetes mellitus with hyperglycemia, without long-term current use of insulin (HCC) TAKE 1 TABLET BY MOUTH EVERY DAY 90 tablet 3 06/07/2024 ActiveStart: 50-39-6345typupxarsh 5 MG tablet Indications: Morbid obesity (CMS/HCC) , 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) , Type 2 diabetes mellitus with hyperglycemia, without long-term current use ofinsulin (CMS/HCC) TAKE 1 TABLET BY MOUTH EVERY DAY 90 tablet 3 08/06/2023 ActiveLisinopril Gsaqcr51 hr metFORMIN hydrochloride 500 mg extended release oral tablet (20 sources)BiguanideStart: 18-57-3087lywXFKGGD XR (Glucophage-XR) 500 MG 24 hr tablet Indications: Morbid obesity (CMS-HCC) , 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) , Type 2 diabetes mellitus with hyperglycemia, without long-term current use of insulin (HCC) TAKE 1 TABLET BY MOUTH EVERY DAY IN THE MORNING 90 tablet 3 06/07/2024 ActiveStart: 23-80-5831lmpNRJNHX XR (Glucophage- XR) 500 MG 24 hr [...] mg oral tablet (1 source)Nonsteroidal Anti-inflammatory DrugStart: 05-03-4253aysm 1 tablet by mouth twice dailynabumetone 500 mg Tab 500 mg = 1 tab(s), Oral, BID, Refills(s) 0, Arthritis Start Date: 11/17/20 Status: OrderedOzempic (3 sources)Ozempic Activeprobenecid 500 mg oral tablet (20 sources)Start: 86-54-6002hjca 1 tablet by mouth onceprobenecid (Benemid) 500 MG tablet Indications: Arthritis, gouty Take 1 tablet (500 mg) by mouth every 12 (twelve) hours 60 tablet 3 07/15/2024 Active End: 31-02-7369ywvpmnbtsv (Benemid) 500 MG tablet every 12 (twelve) hours. 07/15/2024 Discontinued (Reorder)take 1 tablet by mouth every twelve hours Probenecid 500 MG 1 tablet Orally Twice a day Active0.25 mg, 0.5 mg dose 1.5 ml semaglutide 1.34 mg/ml pen injector (3 sources)Start: 99-01-8138ydmxlu 0.5 mg by subcutaneous injection every week Ozempic 2 mg/1.5 mL (0.25 mg or 0.5 mg dose) subcutaneous solution 0.5 mg, SubCutaneous, qWeek, Refill(s) 0 Start Date: 04/24/21 Status: Ordered Semaglutide, 2 MG/DOSE, (Ozempic, 2 MG/DOSE,) 8 MG/3ML solution pen-injector (20 sources)Start: 50-45-6642syeyix 2 mg by subcutaneous injection every week Semaglutide, 2 MG/DOSE, (Ozempic, 2 MG/DOSE,) 8 MG/3ML solution pen-injector Indications: Type 2 diabetes mellitus with hyperglycemia, without long-term current use of insulin (HCC) INJECT 2 MG SUBCUTANEOUSLY WEEKLY 9 mL 3 10/20/2024 ActiveStart: 74-55-1663ndviqb 2 mg by subcutaneous injection every week Semaglutide, 2 MG/DOSE, (Ozempic, 2 MG/DOSE,) 8 MG/3ML solution pen-injector Indications: Type 2 diabetes mellitus with hyperglycemia, without long-term current use of insulin ([facility]/HCC) INJECT 2 MG SUBCUTANEOUSLY WEEKLY 9 mL 3 10/20/2024 ActiveStart: 83-06-2360fuzsjc 2 mg by subcutaneous injection every weekSemaglutide, 2 MG/DOSE, (Ozempic, 2 MG/DOSE,) 8 MG/3ML solution pen-injector Indications: Type 2 diabetes mellitus with hyperglycemia, without long-term current use of insulin ([facility]) Inject 2 mg under the skin 1 (one) time per week 9 mL 3 08/26/2023 Activesulfamethoxazole 800 mg / trimethoprim 160 mg oral tablet (3 sources)Dihydrofolate Reductase Inhibitor Antibacterial, Sulfonamide AntimicrobialStart: 10-13-2024 End: 12-03-5996hloz 1 tablet by mouth once in the morningsulfamethoxazole- trimethoprim (Bactrim DS) 800-160 MG per tablet Indications: Abscess of abdominal wall Take 1 tablet by mouth in the morning and at noon for 10 days 20 tablet 10/13/2024 10/23/2024 ActiveSyringe/Needle, Disp, (B-D 3CC LUER-HERMINIO SYR 23GX1 ) 23G X 1 3 ML misc (20 sources)Start: 32-47-4735Pcltbco/Needle, Disp, (B-D 3CC LUER-HERMINIO SYR 23GX1 ) 23G X 1 3 ML misc Indications: Male hypogonadism Inject 1 each into the shoulder, thigh, or buttocks every 14 (fourteen) days 50 each 11 10/04/2024 ActiveStart: 05-73-3891Oetegjt/Needle, Disp, (B-D 3CC LUER-HERMINIO SYR 23GX1 ) 23G X 1 3 ML misc Indications: Male hypogonadism Inject 1 each into the shoulder, thigh, or buttocks every 14 (fourteen) days 50 each 11 12/24/2023 Active tadalafil 10 mg oral tablet (1 source)Phosphodiesterase 5 InhibitorStart: 20-00-5253tykatdlmv 10 mg Tab See Instructions, PRN for erectile dysfunction, 1-2 tab(s) po 60mins prior to sexual activity. do not exceed 20mg/24hrs, # 20 tab(s), Refills(s) 3, Pharmacy: [facility]/pharmacy #[id number], 188, cm, 06/03/23 10:01:00 EST, Height/Length Dosing, 138, kg, 06/03/23 10:01:00 EST, Weight Dosing Start Date: 06/03/23 Status: Ordered1 ml testosterone cypionate 200 mg/ml injection (20 sources)AndrogenStart: 12-24-2023 End: 07-33-5282nhbpdnomjcli cypionate (Depo-Testosterone) 200 MG/ML injection Indications: Male hypogonadism Inject 0.5 mL (100 mg) into the shoulder, thigh, or buttocks every 14 (fourteen) days 10 mL 2 11/09/2024 ActiveTestosterone Cypionate 200 mg/mL intramuscular solution (3 sources)Start: 13-08-0725Nwsjdpskyvke Cypionate 200 mg/mL intramuscular solution Refills(s) 0 Start Date: 06/03/23 Status: OrderedtiZANidine 4 mg oral tablet (20 sources)Central alpha-2 Adrenergic Agonisttake 1 tablet by mouth every six hours as neededtiZANidine (Zanaflex) 4 MG tablet Take 4 mg by mouth every 6 (six) hours if needed for muscle spasms ActivetraMADol hydrochloride 50 mg oral tablet (20 sources)Opioid AgonistStart: 85-06-4584uduZCSPT 50 mg Tab Refills(s) 0 Start Date: 06/03/23 Status: OrderedtraMADol HCl ActivetraZODone hydrochloride 50 mg oral tablet (20 sources)Serotonin Reuptake InhibitorStart: 86-37-6764ztiu 1 tablet by mouth at bedtimetraZODone (Desyrel) 50 MG tablet Indications: Primary insomnia Take 1 tablet (50 mg) by mouth at bedtime 30 tablet 3 12/27/2024 ActiveStart: 60-95-5160zmuf 1 tablet by mouth at bedtimetraZODone (Desyrel) 50 MG tablet Indications: Primary insomnia TAKE 1 TABLET BY MOUTH AT BEDTIME 30tablet 3 06/24/2024 ActiveStart: 00-84-9954bnpn 50 mg by mouth once daily at bedtime trazodone 50 mg, Oral, Once a day (at bedtime), Refills(s) 0 Start Date: 05/27/24 Status: OrderedStart: 64-73-6024riiv 1 tablet by mouth at bedtime traZODone (Desyrel) 50 MG tablet Indications: Primary insomnia Take 1 tablet (50 mg) by mouth at bedtime 30 tablet 3 02/26/2024 ActiveVitamin D3 (3 sources)Start: 63-30-7942Kgscszj D3 50,000 International_Unit, BID, Refills(s) 0, Prophylaxis Start Date: 04/25/20 Status: Ordered Completed/Discontinued Medications MedicationDrug Class(es)DatesSig (Normalized)Sig (Original)LORazepam 0.5 mg oral tablet (1 source)BenzodiazepineStart: 83-89-9817Gzmkvp 0.5 mg Tab 1 mg = 2 tab(s), Oral, Once a day (at bedtime), take one tab 30 minutes prior to leaving house for biopsy. Take second one 30 minutes prior to scheduled time of biopsy if needed, # 2 tab(s), Refills(s) 0, Pharmacy: [facility]/pharmacy #[id number], 185.4, cm, 12/05/20 11:15:00 EDT, Height/Length Dosing, 153.8, kg, 12/05/20 11:15:00 EDT, Weight Dosing Start Date: 12/06/20 Status: Orderedtriamcinolone acetonide 40 mg/ml injectable suspension (4 sources)CorticosteroidStart: 35-94-4648Iymicrn-40 May, 40 mgStart: 06-31-4023Ptbrfwr -40 mg Jul, 40 mg Problems Active Problems Problem ClassificationProblemDateDocumented DateEpisodic/ChronicAcquired foot deformities (5 sources)Hallux rigidus, left foot; Translations: [Hallux valgus (acquired), left foot]Onset: 19-01-1814MsxyqeiMyewmh (1 source)Cough variant asthma; Translations: [COUGH VARIANT ASTHMA]Onset: 61-03-8615PzeeytdEnlwpqis of urinary tract (10 sources)Calculus of kidney; Translations: [Kidney stone]Onset: 05-27-2022 EpisodicCataract (20 sources)Bilateral age-related nuclear cataracts; Translations: [Age-related nuclear cataract, bilateral]Onset: 247682-27-6199ZymtcguNjcabpb kidney disease (2 sources)Chronic kidney disease stage 3A ; Translations: [Chronic kidney disease, stage 3a (CMS-HCC)]94-85-9033SxiznwkQcisclt ulcer of skin (5 sources)Non-pressure chronic ulcer of other part of left foot limited to breakdown of skin; Translations: [Non-pressure chronic ulcer of other part of left foot with unspecified severity]Onset: 31-37-7600RlgevolDydsurciwodwh of surgical procedures or medical care (5 sources)Other complications of procedures, not elsewhere classified, initial encounter; Translations: [OTH COMPLICATIONS PROC NEC INITIAL]Onset: 11-05-2022 EpisodicConditions associated with dizziness or vertigo (4 sources)Dizziness and giddiness; Translations: [DIZZINESS AND GIDDINESS] Onset: 00-74-4586GwvfjrxhCzgyputpsr heart failure; nonhypertensive (4 sources)Heart failure, unspecified; Translations: [HEART FAILURE UNSPECIFIED] Onset: 78-27-1209HxaonkjRlwudkki mellitus with complications (20 sources)Type 2 diabetes mellitus; Translations: [Type 2 diabetes mellitus with other specified complication]Onset: 24-21-1871YkopnzfPxoocens mellitus without complication (5 sources)Type 2 diabetes mellitus without complications; Translations: [TYPE 2 DM WITHOUT COMPLICATIONS]Onset: 58-60-7684GcsphpbTemgerpso of lipid metabolism (20 sources)Mixed hyperlipidemia; Translations: [Pure hypercholesterolemia, unspecified]Onset: 67-82-6316LzxrbheLaolrssfh of teeth and jaw (1 source)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; Translations: [ADHESIONS AND ANKYLOSIS LEFT TMJ]Onset: 66-15-7563KpyadiugBtjnhfegb hypertension (3 sources)Essential (primary) hypertension; Translations: [Essential (primary) hypertension]Onset: 94-60-1939DmuhutpRmxjpchvdzzty symptoms and ill-defined conditions (3 sources)Qqrcxwlz74-25-3841VxoiymivEtin and other crystal arthropathies (20 sources)Gout, unspecified; Translations: [Gouty arthropathy]Onset: 28-79-1215JautyafTwfmqddzj (4 sources)Steatohepatitis; Translations: [Nonalcoholic steatohepatitis (HODGES)] Onset: 04-12-2021 Resolved: 78-60-5256GfjeznuMxfcbngvlic of prostate (8 sources)Benign prostatic hypertrophy with outflow obstruction; Translations: [Benign prostatic hyperplasia with lower urinary tract symptoms]Onset: 55-66-5174YlobltxQgthcsrpmvssz mental health disorders (20 sources)Primary insomnia; Translations: [Primary insomnia]Onset: 01-12-2024 80-76-6501WnpejsjZndmqcjmr of unspecified nature or uncertain behavior (3 sources)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 68-34-2389WqmbrhitFinrslwksuyaay (20 sources)Arthritis of right knee; Translations: [Unilateral primary osteoarthritis, right knee]Onset: 08-07-2021 Resolved: 44-34-5689MmdcckzHscwd aftercare (1 source)Patient encounter status; Translations: [Aftercare following joint replacement surgery]24-94-5172LfcszyvLiprv aftercare (1 source)Aftercare following joint replacement surgery; Translations: [Aftercare following joint replacementsurgery]Onset: 85-19-9883FdctmrbFdbtg aftercare (1 source)education professional (current) use of oral hypoglycemic drugs; Translations: [AUTOMOTIVE SERVICES MANAGER USE ORAL HYPOGLYCEMIC DX]Onset: 53-78-6971MvvzvdbwEbqag aftercare (1 source)Other cable engineer (current) drug therapy; Translations: [OTH AUTOMOTIVE SERVICES MANAGER CURRENT DRUG THERAPY]Onset: 92-66-4053YpnqjpgyWxcyr aftercare (3 sources)Long-term current use of qmqbrzbazzhmd64-81-4156YiwuegjrKuvyx and unspecified benign neoplasm (3 sources)Benign neoplasm of descending jprwu90-60-7243YhwpaxanQuhlb and unspecified benign neoplasm (3 sources)Benign neoplasm of sigmoid kiarr99-08-9005DmkjdgniQcwkw and unspecified benign neoplasm (3 sources)History of polyp of jjura98-59-1340MlulgwduBycms connective tissue disease (1 source)Presence of left artificial knee joint; Translations: [Presence of left artificial knee joint]Onset: 56-20-8053KbczgtnDjhpa connective tissue disease (4 sources)Pain in left foot; Translations: [PAIN IN LEFT FOOT]Onset: 12-03-2022 EpisodicOther connective tissue disease (1 source)Myalgia, other site; Translations: [MYALGIA OTHER SITE]Onset: 88-27-2660ZyyaoposClmzv connective tissue disease (4 sources)Arthrodesis status; Translations: [ARTHRODESIS STATUS]Onset: 74-12-9009IyrusjiqGstev diseases of kidney and ureters (3 sources)Hydronephrosis co-occurrent and due to calculus of kidney and ureter 67-04-0659QjmjndpuKsalo endocrine disorders (3 sources)Testicular hypofunction; Translations: [Testicular hypofunction] Onset: 04-56-2303PixlproSmswk endocrine disorders (20 sources)Male hypogonadism; Translations: [Testicular hypofunction]Onset: 283134-89-8964LxxbyqgUkwxd liver diseases (3 sources)Lesion of liver; Translations: [Liver disease, unspecified]Chronic Other liver diseases (1 source)Fatty (change of) liver, not elsewhere classified; Translations: [FATTY CHANGE LIVER NEC]Onset: 03-18-9474WypugqrPvbde liver diseases (15 sources)Non-alcoholic fatty liver; Translations: [Fatty (change of) liver, not elsewhere classified]Onset: 882094-79-9916JttpkbxGsejp liver diseases (20 sources)Non-alcoholic fatty liver disease without non-alcoholic steatohepatitis; Translations: [Fatty (change of) liver, not elsewhere classified]Onset: 086912-19-6249FuzpkpxFtuhq liver diseases (3 sources)Liver efup08-03-6558JkxafbpkZevvk lower respiratory disease (1 source)Personal history of pneumonia (recurrent); Translations: [PERSONAL HX OF PNEUMONIA RECURRENT]Onset: 68-31-9619MuasaayiXqwvj male genital disorders (6 sources)Male erectile dysfunction, unspecified; Translations: [Erectile dysfunction]Onset: 87-36-3906OsfjewyAjamy nervous system disorders (1 source)Other chronic pain; Translations: [OTHER CHRONIC PAIN]Onset: 42-16-6140RkebfvcVjgoc non-traumatic joint disorders (2 sources)Pain in right kneeOnset: 08-07-2021 Resolved: 35-28-1677IighdbskXfcic nutritional; endocrine; and metabolic disorders (1 source)Morbid (severe) obesity due to excess calories; Translations: [MORBID SEVERE OBES D/T EXCESS RAFAEL]Onset: 16-17-2179ZzpkykfYqrfy nutritional; endocrine; and metabolic disorders (1 source)Body mass index (BMI) 39.0-39.9, adult; Translations: [BODY MASS INDEX BMI 39.0-39.9 ADULT]Onset: 15-05-2573IjxidtvWfvfg nutritional; endocrine; and metabolic disorders (3 sources)Body mass index 40+ - severely peokw70-71-8246NabrrumAtaoy nutritional; endocrine; and metabolic disorders (8 sources)Morbid obesity; Translations: [Morbid (severe) obesity due to excess calories]Onset: 815955-59-5587YutwcwdCoeku nutritional; endocrine; and metabolic disorders (20 sources)Severe obesity; Translations: [Class 2 severe obesity due to excess calories with serious comorbidity and body mass index (BMI) of 37.0 to 37.9 in adult ([facility])]Onset: 447647-83-6489GojjganElyuw skin disorders (1 source)Corns and callosities; Translations: [CORNS AND CALLOSITIES]Onset: 62-50-0226BtzwzlbmThthr upper respiratory disease (20 sources)Allergic rhinitis due to pollen; Translations: [Allergic rhinitis due to pollen]Onset: 164856-04-6379OzqmklcXyhkt upper respiratory infections (1 source)Acute upper respiratory infection, unspecified; Translations: [ACUTE UP RESPIRATORY INFECTION UNS]Onset: 44-38-7714OadrhhwnDeyvvtrrf heart disease (6 sources)Personal history of pulmonary embolism; Translations: [H/O: pulmonary embolus]Onset: 64-54-9616PuvtbrwzZoossekd codes; unclassified (1 source)Obstructive sleep apnea (adult) (pediatric); Translations: [OBSTRUCTIVE SLEEP APNEA]Onset: 46-99-0370UvioabcRhktkxbs codes; unclassified (20 sources)Obstructive sleep apnea syndrome; Translations: [Obstructive sleep apnea (adult) (pediatric)]Onset: 496547-15-6860QkftpymSsubpstr codes; unclassified (1 source)Family history of cancer; Translations: [Family history of malignant neoplasm of prostate]Onset: 98-07-5211CvmjuhwoLnxuypgr codes; unclassified (3 sources)Family history of prostate ubhcwi02-12-0858KtnnscwpWaadeuhznbl; intervertebral disc disorders; other back problems (20 sources)Spondylosis without myelopathy or radiculopathy, lumbar region; Translations: [Unspecified thoracic, thoracolumbar and lumbosacral intervertebral disc disorder]Onset: 14-75-1434CtdacqjAubhqwbyalc; intervertebral disc disorders; other back problems (7 sources)Muscle spasm of back; Translations: [Backache]Onset: 01-18-2023 EpisodicUnclassified (4 sources)LOW BACK PAIN, UNSPECIFIED; Translations: [LOW BACK PAIN, UNSPECIFIED]Onset: 36-11-8353Kaclfphppplm (1 source)PERSONAL HISTORY OF COVID-19; Translations: [PERSONAL HISTORY OF COVID-19]Onset: 83-76-3912Zdtbgwqylkfl (1 source)COUGH, UNSPECIFIED; Translations: [COUGH, UNSPECIFIED]Onset: 19-45-9610Currkuwbdmmu (2 sources)Measurement whwodeq98-07-4055 Past or Other Problems Problem ClassificationProblemDateDocumented DateEpisodic/ChronicOther aftercare (4 sources)Encounter for surgical aftercare following surgery on the circulatory system; Translations: [ENC SURG AFTRCARE FLW SURG CIRC SYS]Onset: 02-18-2022 EpisodicOther aftercare (20 sources)Long-term current use of drug therapy; Translations: [Other cable engineer (current) drug therapy]Onset: 376904-78-3177EmhvloogJkixs and unspecified benign neoplasm (1 source)Hemangioma of intra-abdominal structures; Translations: [Liver hemangioma D18.03]Onset: 04-12-2021 Resolved: 98-28-4946DcdgvmwgKmpkw connective tissue disease (1 source)Myalgia, unspecified site; Translations: [MYALGIA UNSPECIFIED SITE] Onset: 63-20-9088MiqmwuyeNpkdt connective tissue disease (4 sources)Other muscle spasm; Translations: [OTHER MUSCLE SPASM]Onset: 12-85-1321QzxnymzkKuoys male genital disorders (1 source)Disorder of prostate, unspecified; Translations: [DISORDER OF PROSTATE UNSPECIFIED]Onset: 15-48-5886PfnyrnxjNxpog non-traumatic joint disorders (3 sources)Pain in left knee; Translations: [PAIN IN LEFT KNEE]Onset: 08-07-2021 Resolved: 41-14-9942VpyhitalRnumg screening for suspected conditions (not mental disorders or infectious disease) (20 sources)Encounter for screening for malignant neoplasm of prostate; Translations: [Screening for malignant neoplasm done]Onset: 60-83-6772Jbselmck Phlebitis; thrombophlebitis and thromboembolism (9 sources)Phlebitis and thrombophlebitis of superficial vessels of right lower extremity; Translations: [Phlebitis and thrombophlebitis of superficial vessels of left lower extremity]Onset: 25-16-2776KrwtdlxhLqfr and subcutaneous tissue infections (20 sources)Cellulitis of left toe; Translations: [Abscess of abdominal wall] Onset: 12-11-2022 Resolved: 528421-92-7365FgyzwmbmWhosltcmvqcx (1 source)LOW BACK PAIN, UNSPECIFIED; Translations: [LOW BACK PAIN, UNSPECIFIED] Onset: 50-57-5683Jnntbzacgebo (3 sources)Patient encounter weaxye59-61-3488Nbtidcwr veins of lower extremity (5 sources)Varicose veins of bilateral lower extremities with pain; Translations: [VARICOSE VNS MARIE LOW EXTREMW/PAIN]Onset: 07-55-7365Iidetypm Results Test NameValueInterpretationReference RangeFacilityXR KNEE LEFT (3 VIEWS)on 33-26-7986JKUW: XR KNEE LEFT (3 VIEWS) HISTORY: Aftercare [...] LEFT (3 VIEWS)Ordered By: Radiologist Radiology on 87-85-8815[facility] Work Phone: XR KNEE LEFT (3 VIEWS)on 14-79-7593QH KNEE LEFT (3 VIEWS)EXAM: XR KNEE LEFT (3 VIEWS) HISTORY: Aftercare following left knee joint replacement surgery COMPARISON: 08/23/2024 left knee IMPRESSION: FINDINGS/IMPRESSION: 1. 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 2. Severe osteoarthritic change right knee. Interpreted by: Russ Rodriguez Jr., MD Signed by: Russ Rodriguez Jr., MD 01/31/25 Final resultNormalAshtabula County Medical CenterRadiology Study observation (narrative) NOMS HealthcareXR Knee - left 3 Viewson 07-96-0182HXKZCCGP/IMPRESSION: 1. 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 2. Severe osteoarthritic change right knee. [facility] RIS CONSOLIDATEDEXAM: XR KNEE LEFT (3 VIEWS) HISTORY: Aftercare following left knee joint replacement surgery COMPARISON: 08/23/2024 left knee [facility] RIS Russ Gandara Jr., MD - 01/31/2025 EXAM: XR KNEE LEFT (3 VIEWS) HISTORY: Aftercare following left knee joint replacement surgery COMPARISON: 08/23/2024 left knee IMPRESSION: FINDINGS/IMPRESSION: 1. 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 2. Severe osteoarthritic change right knee. [facility] HospitalAurochs [facility] HospitalRadiology Study observation (narrative)[facility] HospitalFits.me [facility] HospitalXR Knee - left 3 ViewsOrdered By: Russ Rodriguez on 58-41-5099Itz [facility] Work Phone: tbh MICROALB CREAT RATIO RANDOMon 44-22-5741HVVQECELTO URINE PIRIRU226.87 mg/dL20.00 - 300.00 mg/dLNOWI HealthcareMICROALBUM CREATININE RATIO UR19.6 mg/g0.0 - 29.9 mg/gNOMS HealthcareComment on above:NO MICROALBUMINURIA 0-29 MG/G CLINICAL MICROALBUMINURIA 30-300 MG/G MACROALBUMINURIA >300 MG/G MICROALBUMIN URINE RANDOM5 mg/dLNINF - 30.0 mg/dLNOWI HealthcareCLINISYNCNNORTHWEST CENTER FOR [facility] HealthcareMHPT PSA, DIAGNOSTICon 77-48-0612XGJAQGXP SPECIFIC ANTIGEN DX1.32 ng/mLNINF - 4.00 ng/mLNOMS HealthcareCLINISYNCNOMS HealthcareXR Knee - left 1 or 2 Viewson 99-26-5007R[address] [address] XRay Report Signed Patient: CARLOS CARABALLO MR#: [id number] : 1955 Acct:[id number] Age/Sex: 69 / M ADM Date: 10/04/24 Loc: EC Attending Dr: Daniele Valencia M.D. Ordering Physician: Daniele Valencia M.D. Date of Service: 10/04/24 Procedure(s): XR knee LT 2V Accession Number(s): [id number] cc: Daniele Valencia M.D.; Tulio Ruggiero M.D. The [address] [address] Patient Name: CARLOS CARABALLO MRN: [id number]:[id number] date: 1955 Sex: M Assigned Patient Location: Current Patient Location: Accession/Order Number: [id number] Exam Date: 10/04/2024 14:50 Report Date: 10/04/2024 [...] Sheppard Jr., D.O.10/04/2024 2:51 PM Dictation Location: [place] [address] Electronically authenticated by: [id number] Y Date: 10/04/2024 14:51 Dictated By: Rehan Sheppard M.D. Signed By: 10/04/24 1453 DD/ 1451 TD/TT: Information Technology Account Manager:MARTHAHRadiology, Radiologist, - 10/04/2024 The [place] [id number] XRay Report Signed Patient: CARLOS CARABALLO MR#: [id number] : 1955 Acct:[id number] Age/Sex: 69 / M ADM Date: 10/04/24 Loc: EC Attending Dr: Daniele Valencia M.D. Ordering Physician: Daniele Valencia M.D. Date of Service: 10/04/24 Procedure(s): XR knee LT 2V Accession Number(s): [id number] cc: Daniele Valencia M.D.; Tulio Ruggiero M.D. [address] [address] Patient Name: CARLOS CARABALLO MRN: [id number] date: 1955 Sex: M Assigned Patient Location: Current Patient Location: Accession/Order Number: [id number] Exam Date: 10/04/2024 14:50 Report Date: 10/04/2024 [...] Sheppard Jr., D.O.10/04/2024 2:51 PM Dictation Location: [place] [address] Electronically authenticated by: [id number] Y Date: 10/04/2024 14:51 Dictated By: Rehan Sheppard M.D. Signed By: 10/04/24 1453 DD/ 1451 TD/TT: Information Technology Account Manager: NOMS HealthcareRadiology Study observation (narrative)NOM HealthcareXR Knee - left 1 or 2 ViewsOrdered By: Radiologist Radiology on 22-31-5648RMSO Healthcare Work Phone: XR Knee - left 1 or 2 Viewson 31-32-7598Lso[address] [address] XRay Report Signed Patient: CARLOS CARABALLO MR#: [id number] : 1955 Acct:[id number] Age/Sex: 69 / M ADM Date: 09/06/24 Loc: EC Attending Dr: Daniele Valencia M.D. Ordering Physician: Daniele Valencia M.D. Date of Service: 09/06/24 Procedure(s): XR knee LT 2V Accession Number(s): [id number] cc: Daniele Valencia M.D.; Tulio Ruggiero M.D. The [place] [id number] Patient Name: CARLOS CARABALLO MRN: [id number] date: 1955 Sex: M Assigned Patient Location: Current Patient Location: Accession/Order Number: [id number] Exam Date: 09/06/2024 14:51 Report Date: 09/06/2024 [...] Brunilda Rogers M.D.09/06/2024 2:54 PM Dictation Location: [place] [address] Electronically authenticated by: [id number] Y Date: 09/06/2024 14:54 Dictated By: Brunilda Rogers M.D. Signed By: 09/06/24 1456 DD/ 1454 TD/TT: Information Technology Account Manager:MARTHAHRadiology, Radiologist, - 09/06/2024 The [place] [id number] XRay Report Signed Patient: CARLOS CARABALLO MR#: [id number] : 1955 Acct:[id number] Age/Sex: 69 / M ADM Date: 09/06/24 Loc: EC Attending Dr: Daniele Valencia M.D. Ordering Physician: Daniele Valencia M.D. Date of Service: 09/06/24 Procedure(s): XR knee LT 2V Accession Number(s): [id number] cc: Daniele Valencia M.D.; Tulio Ruggiero M.D. [place] [id number] Patient Name: CARLOS CARABALLO MRN: [id number]:[id number] date: 1955 Sex: M Assigned Patient Location: Current Patient Location: Accession/Order Number: [id number] Exam Date: 09/06/2024 14:51 Report Date: 09/06/2024 [...] Brunilda Rogers M.D.09/06/2024 2:54 PM Dictation Location: [place] [address] Electronically authenticated by: [id number] Y Date: 09/06/2024 14:54 Dictated By: Brunilda Rogers M.D. Signed By: 09/06/24 1456 DD/ 1454 TD/TT: Information Technology Account Manager: ROMEL HealthcareRadiology Study observation (narrative)NOMS HealthcareXR Knee - left 1 or 2 ViewsOrdered By: Radiologist Radiology on 07-55-5534YPHQ [facility] Work Phone: all BASIC METABOLIC PANELon 60-11-3959Tdfrn gap [Moles/Vol]14.3 mmol/LNOMS HealthcareCalcium [Mass/Vol]7.7 mg/dLLow8.5 - 10.1 mg/dLNOMS HealthcareChloride [Moles/Vol]108 mmol/LHigh98 - 107 mmol/LNOMS HealthcareCO2 [Moles/Vol]25.4 mmol/L21.0 - 32.0 mmol/LNOMS HealthcareCreatinine [Mass/Vol]1.62 mg/dLHigh0.70 - 1.30 mg/dLNOMS HealthcareGFR/1.73 sq M.predicted CKD-EPI (S/P/Bld) [Vol rate/Area]52Low>=60 mL/min/1.73m 2NOMS HealthcareGlucose [Mass/Vol]112 mg/fPLwpc32 - 106 mg/dLNOMS HealthcareInterpretation and review of laboratory resultsAbnormalNOMS HealthcarePotassium [Moles/Vol]4.7 mmol/L3.5 - 5.1 mmol/LNOMS HealthcareSodium [Moles/Vol]143 mmol/L136 - 145 mmol/LNOMS HealthcareTBH EGFR-NON AF NMPELWCT80Apk>=60 mL/min/1.73m 2NOMS HealthcareUrea nitrogen [Mass/Vol]28 mg/dLHigh7.0 - 18.0 mg/dLNOMS HealthcareUrea nitrogen/Creatinine [Mass ratio]17.3 mg/mgNOMS HealthcareCLINISYNCNNORTHWEST CENTER FOR BEHAVIORAL [facility] HealthcareALL CBC WITH AUTO DIFFon 66-04-4262JQUHULDWG ABSOLUTE WQJO5ZTXU HealthcareBasophils/100 WBC (Bld)0.6 %0.2 - 2.0 %NOMS HealthcareEosinophils/100 WBC (Bld)4.9 %0.9 - 7.0 %NOMS HealthcareErythrocyte distribution width (RBC) [Ratio]13.5 %11.0 - 15.0 %NOMS HealthcareHematocrit (Bld) [Volume fraction]43.4 %42.0 - 54.0 %NOMS HealthcareHemoglobin (Bld) [Mass/Vol]14.7 g/dL14.0 - 18.0 g/dLNOWI HealthcareIMMATURE GRANULOCYTES ABS AUTO0.03NOWI HealthcareImmature granulocytes/100 WBC (Bld)0.4 %0.0 - 0.5 %NOMS HealthcareInterpretation and review of laboratory resultsAbnormalNOWI HealthcareLYMPHOCYTES ABSOLUTE AUTO2.2 NOMS HealthcareLymphocytes/100 WBC (Bld)30.6 %20.5 - 60.0 %NOMS [facility] CenterMCH (RBC) [Entitic mass]32.8 pg25.9 - 34.0 pgNOMercy hospital springfieldMCHC (RBC) [Mass/Vol] 33.9 g/dL29.9 - 35.2 g/dLNOMercy hospital springfieldMCV (RBC) [Entitic vol]96.9 jWWifj89.0 - 94.0 fLNOMS HealthcareMONOCYTES ABSOLUTE AUTO0.6NOMS HealthcareMonocytes/100 WBC (Bld)8.3 %1.7 - 12.0 %NOMS HealthcareNEUTROPHILS ABSOLUTE AUTO3.9NOMS Healthcare Neutrophils/100 WBC (Bld)55.2 %43.0 - 75.0 %NOMS HealthcarePlatelet mean volume (Bld) [Entitic vol]8.8 fLLow9.5 - 13.5 fLNOMS HealthcareTBH EO #0.4NOMS HealthcareTBH [id number] HealthcareTBH RBC4.48LowNOMS HealthcareTBH WBC7.1NOMS HealthcareCLINISYNCNOMS HealthcareXR Knee - left 4 Viewson 53-35-7144[place], [place] [address] XRay Report Signed Patient: CARLOS CARABALLO MR#: [id number] : 1955 Acct:[id number] Age/Sex: 69 / M ADM Date: 08/23/24 Loc: SURGOUT Attending Dr: Daniele Valencia M.D. Ordering Physician: Daniele Valencia M.D. Date of Service: 08/23/24 Procedure(s): XR knee LT 4V Accession Number(s): [id number] cc: Daniele Valencia M.D.; Tulio Ruggiero M.D. The [place] [address] Patient Name: CARLOS CARABALLO MRN: [id number] date: 1955 Sex: M Assigned Patient Location: [facility] Current Patient Location: [facility] Accession/Order Number: [id number] Exam Date: 08/23/2024 12:30 Report Date: 08/23/2024 [...] M.D. Signed By: 08/23/241307 DD/ 04 TD/TT: Information Technology Account Manager:SIDDHARTHAadiologantonio, Radiologist, - 08/23/2024 [place] [address] XRay Report Signed Patient: CARLOS CARABALLO MR#: [id number] : 1955 Acct:[id number] Age/Sex: 69 / M ADM Date: 08/23/24 Loc: SURGOUT Attending Dr: Daniele Valencia M.D. Ordering Physician: Daniele Valencia M.D. Date of Service: 08/23/24 Procedure(s): XR knee LT 4V Accession Number(s): [id number] cc: Daniele Valencia M.D.; Tulio Ruggiero M.D. The [place] [id number] Patient Name: CARLOS CARABALLO MRN: [facility]:[id number] date: 1955 Sex: M Assigned Patient Location: [facility] Current Patient Location: [facility] Accession/Order Number: [id number] Exam Date: 08/23/2024 12:30 Report Date: 08/23/2024 [...] M.D. Signed By: 08/23/241307 DD/ 1305 TD/TT: Information Technology Account Manager: [facility] HealthcareRadiology Study observation (narrative)[facility] HospitalXR Knee - left 4 ViewsOrdered By: Radiologist Radiology on 43-61-9758XXVSSaint John's Saint Francis Hospital Work Phone: aLL TYPE AND SCREENon 13-28-0952NCC and Rh group Nom (Bld)Blood group B Rh(D) positiveFormerly [facility], later [facility] CAreALL TYPE AND SCREENon 26-40-0388PFM and Rh group Nom (Bld)Blood group B Rh(D) positiveFormerly [facility], [facility] CAreXR Knee Standing AP Bilateralon 14-81-3568NJ Knee Standing AP BilateralEXAM: XR Knee Standing [...] Signed, Electronically Signed in Other Vendor System)Normal [facility] CenterALL MISCELLANEOUS TESTon 01-66-1425ACOJCXOWVBRPV TESTCOMMENT.[facility] HealthcareComment on above:Test Ordered: [id number] Nicotine and Metabolite, Ur Qn Nicotine <10.0 ng/mL Reference Range: . This test was developed and its performance characteristics determined by [facility]. It has not been cleared or approved by the Food and Drug Administration. Nicotine levels greater than 100.0 are consistent with the use of tobacco or tobacco cessation products. Cotinine <10.0 ng/mL Reference Range: . This test was developed and its performance characteristics determined by [facility]. It has not been cleared or approved by the Food and Drug Administration. Cotinine levels greater than 200.0 are consistent with the use of tobacco or tobacco cessation products. Performed at: [address] [id number] Platform Man: Giovany Bhatt MD, Phone: [phone] Performed at: [facility] Lab[address] [id number] Platform Man: Ivan Mckay PhD, Phone: [phone] Nicotine and Metabolite, Quantitative, Urine [facility]ISYHenry [facility] Medical Center Knee Surg.Navigate or Plan ONLY Lefton 30-63-7292APD Knee Surg.Navigate or Plan ONLY LeftHISTORY: Arthritis [...] Signed, Electronically Signed in Other Vendor System)Normal [facility] CenterXR Knee 1 or 2 Views Lefton 02-58-6909PV Knee 1 or 2 Views LeftEXAM: Left [...] Signed, Electronically Signed in Other Vendor System)Normal [facility] Medical CenterMRSA SCREENING CULTUREon 67-80-8166JHLOIRPP9 MRSA Screening Culture NOMS WhwizrnxoxUECGPHEV1OujevcvlPDRX KldulhgefpLKHJWBAN4Uvwitbvjs at: CB - [facility] HospitalTcmtyfnaqfBNQIBOBE[address] [place], [place] [address]331OGQXSaint John's Saint Francis HospitalLpjdcufvhhMAOHGGFL9Old Director: Ivan Mckay PhD, Phone: [phone] John's Saint Francis HospitalCLINISYNCNNORTHWEST CENTER FOR BE[facility] HealthcareALL CBC WITH AUTO DIFFon 91-88-1064JYYZAMJJJ ABSOLUTE AUTO0.1NOMS HealthcareBasophils/100 WBC (Bld)0.9 %0.2 - 2.0 %NOMS HealthcareEosinophils/100 WBC (Bld)4.9 %0.9 - 7.0 %NOM HealthcareErythrocyte distribution width (RBC) [Ratio]13.7 %11.0 - 15.0 %NOM HealthcareHematocrit (Bld) [Volume fraction]44.7 %42.0 - 54.0 %NOM HealthcareHemoglobin (Bld) [Mass/Vol]14.9 g/dL14.0 - 18.0 g/dLNOMercy hospital springfieldIMMATURE GRANULOCYTES ABS AUTO 0.02NOMS HealthcareImmature granulocytes/100 WBC (Bld)0.3 %0.0 - 0.5 %[facility] HealthcareInterpretation and review of laboratory resultsAbnormalNOMercy hospital springfield LYMPHOCYTES ABSOLUTE AUTO1.5NOMercy hospital springfieldLymphocytes/100 WBC (Bld)23 %20.5 - 60.0 %[facility] HospitalH (RBC) [Entitic mass]32.3 pg25.9 - 34.0 pgNOTexas County Memorial HospitalHC (RBC) [Mass/Vol]33.3 g/dL29.9 - 35.2 g/dLSaint John's Saint Francis HospitalMCV (RBC) [Entitic vol]97 tDYgai28.0 - 94.0 fLNOWI HealthcareMONOCYTES ABSOLUTE AUTO0.5 NOM HealthcareMonocytes/100 WBC (Bld)7.9 %1.7 - 12.0 %NOM Healthcare NEUTROPHILS ABSOLUTE AUTO4.1NOMS HealthcareNeutrophils/100 WBC (Bld)63 %43.0 - 75.0 %NOMS HealthcarePlatelet mean volume (Bld) [Entitic vol]8.8 fLLow9.5 - 13.5 fLNOMS HealthcareTBH EO #0.3NOMS HealthcareTBH DOX018CTSW HealthcareTBH RBC4.61 LowNOMS HealthcareTBH WBC6.6NOMS HealthcareCLINISYNCNOMS HealthcareECG 12-LEADon 79-48-4921[place], [place] [address] Electrocardiograph Report Signed Patient: CARLOS CARABALLO MR#: [id number] : 1955 Acct:[id number] Age/Sex: 68 / M ADM Date: 07/20/24 Loc: PST Attending Dr: Daniele Valencia M.D. Ordering Physician: Daniele Valencia M.D. Date of Service: 07/20/24 Procedure(s): ECG 12 lead Accession Number(s): [id number] cc: [facility] Test Date: 2024-07-20 Pat Name: CARLOS CARABALLO Department: Room: - Gender: Male Natural Resource Technician: : 1955 Requested By: TULIO RUGGIERO Order Number: [id number] Reading MD: ABDOULAYE PADILLA Measurements Intervals [place] Rate: 83 P: -3 CT: 155 QRS: -53 QRSD: 141 T: 33 [...] D.O. Signed By: 07/20/242001 DD/ 0950 TD/TT: Information Technology Account Manager:TBHRadiology, Radiologist, - 07/20/2024 The [place] [id number] Electrocardiograph Report Signed Patient: CARLOS CARABALLO MR#: [id number] : 1955 Acct:[id number] Age/Sex: 68 / M ADM Date: 07/20/24 Loc: PST Attending Dr: Daniele Valencia M.D. Ordering Physician: Daniele Valencia M.D. Date of Service: 07/20/24 Procedure(s): ECG 12 lead Accession Number(s): [id number] cc: [facility] Test Date: 2024-07-20 Pat Name: CARLOS CARABALLO Department: Room: - Gender: Male Natural Resource Technician: : 1955 Requested By: TULIO RUGGIERO Order Number: [id number] Reading MD: ABDOULAYE PADILLA Measurements Intervals [place] Rate: 83 P: -3 CT: 155 QRS: -53 QRSD: 141 T: 33 QT: 381 QTc: 449 Interpretive Statements SINUS RHYTHM RIGHT BUNDLE BRANCH BLOCK [120+ ms QRS DURATION, UPRIGHT V1, 40+ ms S IN I/aVL/V4/V5/V6] LEFT ANTERIOR FASCICULAR BLOCK [QRS AXIS <= -45, QR IN I, RS IN II] Electronically Signed On 07-20-2024 20:01:41 EST by ABDOULAYE PADILLA Dictated By: Abdoulaye Padilla D.O. Signed By: 07/20/242001 DD/ TD/TT: Information Technology Account Manager: [place] [address] Electrocardiograph Report Signed Patient: CARLOS CARABALLO MR#: [id number] : 1955 Acct:[id number] Age/Sex: 68 / M ADM Date: 07/20/24 Loc: PST Attending Dr: Daniele Valencia M.D. Ordering Physician: Daniele Valencia M.D. Date of Service: 07/20/24 Procedure(s): ECG 12 lead Accession Number(s): [id number] cc: [facility] Test Date: 2024-07-20 Pat Name: CARLOS CARABALLO Department: Room: - Gender: Male Natural Resource Technician: : 1955 Requested By: 2089 Order Number: [id number] Reading MD: ABDOULAYE PADILLA Measurements Intervals [place] Rate: 73 P: 65 CT: 169 QRS: -58 QRSD: 140 T: 38 QT: 387 QTc: 429 Interpretive Statements SINUS RHYTHM RIGHT BUNDLE BRANCH BLOCK [120+ ms QRS DURATION, UPRIGHT V1, 40+ ms S IN I/aVL/V4/V5/V6] LEFT ANTERIOR FASCICULAR BLOCK [QRS AXIS <= -45, QR IN I, RS IN II] Electronically Signed On 07-20-2024 20:01:19 EST by ABDOULAYE PADILLA Dictated By: Abdoulaye Padilla D.O. Signed By: 07/20/242000 DD/ TD/TT: Information Technology Account Manager:TBHRadiology, Radiologist, - 07/20/2024 [place] [address] Electrocardiograph Report Signed Patient: CARLOS CARABALLO MR#: [id number] : 1955 Acct:[id number] Age/Sex: 68 / M ADM Date: 07/20/24 Loc: PST Attending Dr: Daniele Valencia M.D. Ordering Physician: Daniele Valencia M.D. Date of Service: 07/20/24 Procedure(s): ECG 12 lead Accession Number(s): [id number] cc: [facility] Test Date: 2024-07-20 Pat Name: CARLOS CARABALLO Department: Room: - Gender: Male Natural Resource Technician: : 1955 Requested By: 2089 Order Number: [id number] Reading MD: ABDOULAYE PADILLA Measurements Intervals [place] Rate: 73 P: 65 CT: 169 QRS: -58 QRSD: 140 T: 38 QT: 387 QTc: 429 Interpretive Statements SINUS RHYTHM RIGHT BUNDLE BRANCH BLOCK [120+ ms QRS DURATION, UPRIGHT V1, 40+ ms S IN I/aVL/V4/V5/V6] LEFT ANTERIOR FASCICULAR BLOCK [QRS AXIS <= -45, QR IN I, RS IN II] Electronically Signed On 07-20-2024 20:01:19 EST by ABDOULAYE PADILLA Dictated By: Abdoulaye Padilla D.O. Signed By: 07/20/242000 DD/ TD/TT: Information Technology Account Manager: [facility] HealthcareRadiology Study observation (narrative)[facility] HealthcareRadiology Study observation (narrative)NOMS HealthcareECG 12-LEADOrdered By: Radiologist Radiology on 19-09-5271TYWT Healthcare Work Phone: NOWI Healthcare Work Phone: TB UA (CLEAN/CATCH) HEALTH EDUCATION AIDE/MICRO IF IND.on 07-20-2024 BILIRUBIN URINENegativeNEGATIVENOMS HealthcareBLOOD URINENegativeNEGATIVENOMS HealthcareClarity (U)CLEARCLEARNOMS HealthcareColor (U)LT. YELLOWYELLOWNOMS HealthcareGLUCOSE URINE UANegativeNEGATIVE mg/dLNOMS HealthcareKetones Ql (U) NegativeNEGATIVE mg/dLNOMS HealthcareLeukocyte esterase Test strip Ql (U) NegativeNEGATIVENOMS HealthcareNITRITE URINENegativeNEGATIVENOMS HealthcarepH (U)6.0 [pH]5.0 - 9.0NOMS HealthcarePROTEIN URINENegativeNEG/TRACE mg/dLNOMS HealthcareSPECIFIC GRAVITY URINE1.0251.005 - 1.025NOMS HealthcareURINE MICROSCOPIC INDICATEDNONOMS HealthcareUROBILINOGEN URINE0.2 EU/dL0.2 - 1.0 EU/dL NOMS HealthcareCLINISYNCNOMS HealthcareXR CHEST 2Von 71-00-4209Y[place] [address] XRay Report Signed Patient: CARLOS CARABALLO MR#: [id number] : 1955 Acct:[id number] Age/Sex: 68 / M ADM Date: 07/20/24 Loc: [facility] Attending Dr: Daniele Valencia M.D. Ordering Physician: Daniele Valencia M.D. Date of Service: 07/20/24 Procedure(s): XR chest 2V Accession Number(s): [id number] cc: Daniele Valencia M.D.; Tulio Ruggiero M.D. The [address] [address] Patient Name: CARLOS CARABALLO MRN: [id number] date: 1955 Sex: M Assigned Patient Location: [facility] Current Patient Location: LAB Accession/Order Number: [id number] Exam Date: 07/20/2024 10:06 Report Date: 07/20/2024 [...] M.D. Signed By: 07/20/241706 DD/ 04 TD/TT: Information Technology Account Manager:TBHRadiology, Radiologist, - 07/20/2024 [place] [address] XRay Report Signed Patient: CARLOS CARABALLO MR#: [id number] : 1955 Acct:[id number] Age/Sex: 68 / M ADM Date: 07/20/24 Loc: [facility] Attending Dr: Daniele Valencia M.D. Ordering Physician: Daniele Valencia M.D. Date of Service: 07/20/24 Procedure(s): XR chest 2V Accession Number(s): [id number] cc: Daniele Valencia M.D.; Tulio Ruggiero M.D. The [address] [address] Patient Name: CARLOS CARABALLO MRN: [id number] date: 1955 Sex: M Assigned Patient Location: [facility] Current Patient Location: LAB Accession/Order Number: [id number] Exam Date: 07/20/2024 10:06 Report Date: 07/20/2024 [...] M.D. Signed By: 07/20/241706 DD/ 04 TD/TT: Information Technology Account Manager: ROMEL HealthcareRadiology Study observation (narrative)ROMEL CrumpXR CHEST 2V Ordered By: Radiologist Radiology on 68-75-6113MAWE Healthcare Work Phone: ca ECHO DOPPLER COMPLETEon 76-39-7858[place], [place] [address] Cardiology Report Signed Patient: CARLOS CARABALLO MR#: [id number] : 1955 Acct:[id number] Age/Sex: 68 / M ADM Date: 06/28/24 Loc: CARD Attending Dr: Ken Mercer M.D. Ordering Physician: Ken Mercer M.D. Date of Service: 06/28/24 Procedure(s): CA echo doppler complete Accession Number(s): [id number] cc: Ken Mercer M.D.; Tulio Ruggiero M.D. Patient Name: CARLOS CARABALLO MR#: [id number] : 1955 Exam Date: 06/28/2024 Ordering Doctor: [...] Dictated By: AMARI MCMANUS (more content not included)...[facility] Radiology, Radiologist, MD - 06/28/2024 [place] [address] Cardiology Report Signed Patient: CARLOS CARABALLO MR#: [id number] : 1955 Acct:[id number] Age/Sex: 68 / M ADM Date: 06/28/24 Loc: CARD Attending Dr: Ken Mercer M.D. Ordering Physician: Ken Mercer M.D. Date of Service: 06/28/24 Procedure(s): CA echo doppler complete Accession Number(s): [id number] cc: Ken Mercer M.D.; Tulio Ruggiero M.D. Patient Name: CARLOS CARABALLO MR#: [id number] : 1955 Exam Date: 06/28/2024 Ordering Doctor: [...] Signed By: 06/28/24 175 DD/ 174 TD/TT: Information Technology Account Manager: [facility] HospitalRadiology Study observation (narrative)[facility] ECHO DOPPLER COMPLETEOrdered By: Radiologist Radiology on 88-83-0027CTVE [place] Work Phone: XR Knee - bilateral 4 Viewson 77-18-7818[place], [place] [address] XRay Report Signed Patient: CARLOS CARABALLO MR#: [id number] : 1955 Acct:[id number] Age/Sex: 68 / M ADM Date: 06/21/24 Loc: EC Attending Dr: Daniele Valencia M.D. Ordering Physician: Daniele Valencia M.D. Date of Service: 06/21/24 Procedure(s): XR knee MARIE 4V Accession Number(s): [id number] cc: Daniele Valencia M.D.; Tulio Ruggiero M.D. [address] [address] Patient Name: CARLOS CARABALLO MRN: [id number] date: 1955 Sex: M Assigned Patient Location: EC Current Patient Location: Accession/Order Number: [id number] Exam Date: 06/21/2024 13:16 Report Date: 06/23/2024 06:16 At the request of: DANIELE VALENCIA Procedure: XR knee MARIE 4V EXAMINATION: XR knee MARIE 4V HISTORY: BILATERAL KNEE PAIN COMPARISON: XR knee bilateral 03/24/2023 FINDINGS: RIGHT FINDINGS: BONES: Marked narrowing of the medial joint space with pbbl-px-lndb articulation. 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 SOFT TISSUES: No visible soft tissue swelling. OTHER: Small joint effusion. LEFT FINDINGS: BONES: Marked narrowing of the medial joint space with mjzo-hv-ikzt articulation. Periarticular degenerative osteophytes involving all 3 [...] M.D. Signed By: 06/23/24618 DD/ 5 TD/TT: Information Technology Account Manager:TBHRadiology, Radiologist, MD - 06/23/2024 [place] [address] XRay Report Signed Patient: CARLOS CARABALLO MR#: [id number] : 1955 Acct:[id number] Age/Sex: 68 / M ADM Date: 06/21/24 Loc: EC Attending Dr: Daniele Valencia M.D. Ordering Physician: Daniele Valencia M.D. Date of Service: 06/21/24 Procedure(s): XR knee MARIE 4V Accession Number(s): [id number] cc: Daniele Valencia M.D.; Tulio Ruggiero M.D. The [place] [address] Patient Name: CARLOS CARABALLO MRN: [id number] date: 1955 Sex: M Assigned Patient Location: [facility] Current Patient Location: Accession/Order Number: [id number] Exam Date: 06/21/2024 13:16 Report Date: 06/23/2024 06:16 At the request of: DANIELE VALENCIA Procedure: XR knee MARIE 4V EXAMINATION: XR knee MARIE 4V HISTORY: BILATERAL KNEE PAIN COMPARISON: XR knee bilateral 03/24/2023 FINDINGS: RIGHT FINDINGS: BONES: Marked narrowing of the medial joint space with [id number] articulation. 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 SOFT TISSUES: No visible soft tissue swelling. OTHER: Small joint effusion. LEFT FINDINGS: BONES: Marked narrowing of the medial joint space with thqp-zn-gkbi articulation. Periarticular degenerative osteophytes involving all 3 [...] M.D. Signed By: 06/23/24618 DD/ 5 TD/TT: Information Technology Account Manager: ROMEL HealthcareRadiology Study observation (narrative)[facility] HospitalXR Knee - bilateral 4 ViewsOrdered By: Radiologist Radiology on 99-44-3364HFIM [place] Work Phone: [facility] [phone] From: Cyndi Montano To: EU - Administrative; Sent: 06/04/2024 12:06:06 EST Show up: 06/04/2024 12:05:00 EST Subject: Ambulatory Reminder Due Date/Time: 05/28/2025 12:05:00 EST Reminder/Recall Patient needs scheduled for a 1 yr f/u, PCP to check PSA. Due back in 06/07 M to call and scheduleTri[facility] HospitalUrology Office/Clinic Noteon 35-30-7299Cfnroos Office/Clinic NoteUrology Office/Clinic Note Chief Complaint 5mo [...] E&M of Est. Patient Moderate 30-39 Min 53788 Influenza immunization status assessed 1030F Medication list [...] E&M of Est. Patient Moderate 30-39 Min 38648 3. Hypogonadism male (E29.1: Testicular hypofunction) Managed by PCP. On T injections. Ordered: Complex E&M Add on G2211 E&M of Est. Patient Moderate 30-39 Min 91874 4. ED (erectile dysfunction) (N52.9: Male erectile dysfunction, unspecified) Failed Tadalafil. A lot of neuropathy. Not interested in additional tx. Ordered: Complex E&M Add on G2211 E&M of Est. Patient Moderate 30-39 Min 65305 Follow-up With When Contact Information LIZ ABREU PA-C, URL Within 1 year Additional Instructions: Patient Education Kidney Stones, Enqt-dg-Tqsk Problem List/Past Medical History Ongoing Abnormal abdominal [...] BPH with urinary obstructio (more content not included)...[facility] HospitalComment on above:Result Comment: Electronically Signed By: LIZ ABREU PA-C\.br\Date and Time Signed: 05/27/2409:57 ESTXR ABDOMEN 1Von 97-07-4078[place], [place] [address] XRay Report Signed Patient: CARLOS CARABALLO MR#: [id number] : 1955 Acct:[id number] Age/Sex: 68 / M ADM Date: 05/17/24 Loc: RAD Attending Dr: Liz MARTELL Ordering Physician: Liz Abreu Date of Service: 05/17/24 Procedure(s): XR abdomen 1V Accession Number(s): [id number] cc: Tulio Ruggiero M.D.; Liz Abreu [address] [address] Patient Name: CARLOS CARABALLO MRN: [id number] date: 1955 Sex: M Assigned Patient Location: RAD Current Patient Location: Accession/Order Number: [id number] Exam Date: 05/17/2024 08:50 Report Date: 05/18/2024 [...] Steele M.D. Signed By: 05/18/2456 DD/ TD/TT: Information Technology Account Manager:SIDDHARTHAadiologantonio, Radiologist, - 05/18/2024 [place] [address] XRay Report Signed Patient: CARLOS CARABALLO MR#: [id number] : 1955 Acct:[id number] Age/Sex: 68 / M ADM Date: 05/17/24 Loc: RAD Attending Dr: Liz MARTELL Ordering Physician: Liz Abreu Date of Service: 05/17/24 Procedure(s): XR abdomen 1V Accession Number(s): [id number] cc: Tulio Ruggiero M.D.; Liz Abreu [place] [id number] Patient Name: CARLOS CARABALLO MRN: [id number] date: 1955 Sex: M Assigned Patient Location: RAD Current Patient Location: Accession/Order Number: [id number] Exam Date: 05/17/2024 08:50 Report Date: 05/18/2024 [...] Steele M.D. Signed By: 05/18/2456 DD/ TD/TT: Information Technology Account Manager: [facility] HealthcareRadiology Study observation (narrative)NOM HealthcareXR ABDOMEN 1VOrdered By: Radiologist Radiology on 74-56-0383RUDQ [place] Work Phone: XR FOOT LT MIN 3Von 49-54-1151[place] [address] XRay Report Signed Patient: CARLOS CARABALLO MR#: [id number] : 1955 Acct:[id number] Age/Sex: 68 / M ADM Date: 02/11/24 Loc: EC Attending Dr: Tonio Bell D.P.M. Ordering Physician: Tonio Bell D.P.M. Date of Service: 02/11/24 Procedure(s): XR foot LT min 3V Accession Number(s): [id number] cc: Tonio Bell D.P.M.; Tulio Ruggiero M.D. The [place] [id number] Patient Name: CARLOS CARABALLO MRN: [id number] date: 1955 Sex: M Assigned Patient Location: EC Current Patient Location: Accession/Order Number: [id number] Exam Date: 02/11/2024 10:36 Report Date: 02/12/2024 [...] M.D. Signed By: 02/12/24625 DD/ 3 TD/TT: Information Technology Account Manager:TBHRadiology, Radiologist, - 02/12/2024 [place] [address] XRay Report Signed Patient: CARLOS CARABALLO MR#: [id number] : 1955 Acct:[id number] Age/Sex: 68 / M ADM Date: 02/11/24 Loc: EC Attending Dr: Tonio Bell D.P.M. Ordering Physician: Tonio Bell D.P.M. Date of Service: 02/11/24 Procedure(s): XR foot LT min 3V Accession Number(s): [id number] cc: Tonio Bell D.P.M.; Tulio Ruggiero M.D. The [place] [id number] Patient Name: CARLOS CARABALLO MRN: [id number] date: 1955 Sex: M Assigned Patient Location: Current Patient Location: Accession/Order Number: [id number] Exam Date: 02/11/2024 10:36 Report Date: 02/12/2024 [...] M.D. Signed By: 02/12/24625 DD/ 3 TD/TT: Information Technology Account Manager: [facility] HealthcareRadiology Study observation (narrative)NOM HealthcareXR FOOT LT MIN 3VOrdered By: Radiologist Radiology on 84-00-6086ZGGP Healthcare Work Phone: XR FOOT LT MIN 3Von 80-09-5561[place], [place] [address] XRay Report Signed Patient: CARLOS CARABALLO MR#: [id number] : 1955 Acct:[id number] Age/Sex: 68 / M ADM Date: 10/08/23 Loc: EC Attending Dr: Tonio Bell D.P.M. Ordering Physician: Tonio Bell D.P.M. Date of Service: 10/08/23 Procedure(s): XR foot LT min 3V Accession Number(s): [id number] cc: Tonio Bell D.P.M.; Tulio Ruggiero M.D. [place] [id number] Patient Name: CARLOS CARABALLO MRN: [id number] date: 1955 Sex: M Assigned Patient Location: Current Patient Location: Accession/Order Number: [id number] Exam Date: 10/08/2023 08:55 Report Date: 10/09/2023 [...] Signed By: 10/09/23 0553 DD/ 0550 TD/TT: Information Technology Account Manager:SIDDHARTHAadiology, Radiologist, - 10/09/2023 [place] [address] XRay Report Signed Patient: CARLOS CARABALLO MR#: [id number] : 1955 Acct:[id number] Age/Sex: 68 / M ADM Date: 10/08/23 Loc: EC Attending Dr: Tonio Bell D.P.M. Ordering Physician: Tonio Bell D.P.M. Date of Service: 10/08/23 Procedure(s): XR foot LT min 3V Accession Number(s): [id number] cc: Tonio Bell D.P.M.; Tulio Ruggiero M.D. The [place] [id number] Patient Name: CARLOS CARABALLO MRN: [id number] date: 1955 Sex: M Assigned Patient Location: Current Patient Location: Accession/Order Number: [id number] Exam Date: 10/08/2023 08:55 Report Date: 10/09/2023 [...] Mccartney M.D. Signed By: 10/09/2353 DD/ TD/TT: Information Technology Account Manager: ROMEL HealthcareRadiology Study observation (narrative)[facility] HealthcareXR FOOT LT MIN 3VOrdered By: Radiologist Radiology on 25-55-1753[facility] Work Phone: ct FOOT LT WO CONon 87-39-3383[place], [place] [address] CT Scan Report Signed Patient: CARLOS CARABALLO MR#: [id number] : 1955 Acct:[id number] Age/Sex: 67 / M ADM Date: 07/04/23 Loc: CT Attending Dr: Tonio Bell D.P.M. Ordering Physician: Tonio Bell D.P.M. Date of Service: 07/04/23 Procedure(s): CT foot LT wo con Accession Number(s): [id number] cc: Tulio Ruggiero M.D. [place] [id number] Patient Name: CARLOS CARABALLO MRN: [id number] date: 1955 Sex: M Assigned Patient Location: CT Current Patient Location: Accession/Order Number: [id number] Exam Date: 07/04/2023 10:18 Report Date: 07/05/2023 [...] M.D. Signed By: 07/05/23153 DD/ 1 TD/TT: Information Technology Account Manager:TBHRadiology, Radiologist, MD - 07/05/[address] [address] [address] Scan Report Signed Patient: CARLOS CARABALLO MR#: [id number] : 1955 Acct:[id number] Age/Sex: 67 / M ADM Date: 07/04/23 Loc: CT Attending Dr: Tonio Bell D.P.M. Ordering Physician: Tonio Bell D.P.M. Date of Service: 07/04/23 Procedure(s): CT foot LT wo con Accession Number(s): [id number] cc: Tulio Ruggiero M.D. The [address] [address] Patient Name: CARLOS CARABALLO MRN: [id number] date: 1955 Sex: M Assigned Patient Location: CT Current Patient Location: Accession/Order Number: [id number] Exam Date: 07/04/2023 10:18 Report Date: 07/05/2023 [...] M.D. Signed By: 07/05/23153 DD/ 1 TD/TT: Information Technology Account Manager: ROMEL HealthcareRadiology Study observation (narrative)NOM HealthcareCT FOOT LT WO CONOrdered By: Radiologist Radiology on 26-16-8600[facility] Work Phone: XR FOOT LT MIN 3Von 07-54-0129[place], [place] [address] XRay Report Signed Patient: CARLOS CARABALLO MR#: [id number] : 1955 Acct:[id number] Age/Sex: 67 / M ADM Date: 07/02/23 Loc: RAD Attending Dr: Tonio Bell D.P.M. Ordering Physician: Tonio Bell D.P.M. Date of Service: 07/02/23 Procedure(s): XR foot LT min 3V Accession Number(s): [id number] cc: Tonio Bell D.P.M.; Tulio Ruggiero M.D. The [place] [phone] Patient Name: CARLOS CARABALLO MRN: [id number] date: 1955 Sex: M Assigned Patient Location: [facility] Current Patient Location: [facility] Accession/Order Number: [id number] Exam Date: 07/02/2023 08:44 Report Date: 07/02/2023 [...] Signed By: 07/02/23 1038 DD/ 1035 TD/TT: Information Technology Account Manager:SIDDHARTHAadiology, Radiologist, - 07/02/2023 [place] [address] XRay Report Signed Patient: CARLOS CARABALLO MR#: [id number] : 1955 Acct:[id number] Age/Sex: 67 / M ADM Date: 07/02/23 Loc: RAD Attending Dr: Tonio Bell D.P.M. Ordering Physician: Tonio Bell D.P.M. Date of Service: 07/02/23 Procedure(s): XR foot LT min 3V Accession Number(s): [id number] cc: Tonio Bell D.P.M.; Tulio Ruggiero M.D. [place] [address] Patient Name: CARLOS CARABALLO MRN: [id number] date: 1955 Sex: M Assigned Patient Location: [facility] Current Patient Location: RAD Accession/Order Number: [id number] Exam Date: 07/02/2023 08:44 Report Date: 07/02/2023 [...] Signed By: 07/02/23 1038 DD/ 1035 TD/TT: Information Technology Account Manager: ROMEL HealthcareRadiology Study observation (narrative)[facility] HealthcareXR FOOT LT MIN 3VOrdered By: Radiologist Radiology on 56-92-7464DCOY [place] Work Phone: XR LSPINE W_OBLS AND FLEX_EXTon 99-72-9353OZ LSPINE W_OBLS AND FLEX_EXTEXAMINATION: XR LSPINE W_OBLS [...] Electronically authenticated by: RACHEAL STEELE Date: 2022-12-05 09:46NoMartins Ferry HospitalCB AUTO DIFFon 28-14-6605PRXD #0.1 103/ulNormal0.0-0.1The [facility] HospitalComment on above:Performed By: #### POCGLUC #### [facility] [address] [place] [address] [address] Juliet WilkesBasophils/100 WBC (Bld)0.7 %Normal0.2-2.0[facility] Comment on above:Performed By: #### POCGLUC #### [facility] [address] [place] [address] [address] Juliet Padgett #0.4 103/ulNormal0.0-0.7The [facility] HospitalComment on above: Performed By: #### POCGLUC #### [facility] [address] [place] [address] [address] Juliet Huddlestonosinophils/100 WBC (Bld)5.3 %Normal0.9-7.0The [facility] Comment on above:Performed By: #### POCGLUC #### [facility] [address] [place] [address] [address] Juliet Huddlestonrythrocyte distribution width (RBC) [Ratio]14.0 %Klcyzc52.0-15.0 The [facility] HospitalComment on above:Performed By: #### POCGLUC #### [facility] [address] [place] [address] Dr. Juliet Hillatoshirazt (Bld) [Volume fraction]43.6 %Qdyruo19.0-54.0The [facility] HospitalComment on above:Performed By: #### POCGLUC #### [facility] [address] [place] [address] Dr. Juliet WilkesHemoglobin (Bld) [Mass/Vol]14.9 g/yVYjonon55.0-18.0The [facility] HospitalComment on above:Performed By: #### POCGLUC #### [facility] [address] [place] [address] Dr. Juliet Cervantes #0.03 10e3/ulNormal0.00-0.03The [facility] HospitalComment on above:Performed By: #### POCGLUC #### [facility] [address] [place] [address] Dr. Juliet Cervantes %0.4 %Normal0.0-0.5The [facility] HospitalComment on above: Performed By: #### POCGLUC #### [facility] [address] [place] [address] Dr. Juliet Arambula #2.0 103/ulNormal1.2-3.8The [facility] HospitalComment on above:Performed By: #### POCGLUC #### [facility] [address] [place] [address] Dr. Juliet Westhocytes/100 WBC (Bld)29.3 %Qlquar35.5-60.0The [facility] HospitalComment on above:Performed By: #### POCGLUC #### [facility] [address] [place] [address] Dr. Juliet McdanielUAL DIFF REQNONormalThe [facility] HospitalComment on above: Performed By: #### POCGLUC #### [facility] [address] [place] [address] Dr. Juliet Yanes (RBC) [Entitic mass]33.4 scIzxbvs91.9-34.0The [facility] HospitalComment on above:Performed By: #### POCGLUC #### [facility] [address] [place] [address] Dr. Juliet Valderrama (RBC) [Mass/Vol]34.2 g/hRRwnfji62.9-35.2The [facility] HospitalComment on above:Performed By: #### POCGLUC #### [facility] [address] [place] [address] Dr. Juliet Penaloza (RBC) [Entitic vol]97.8 fLCritically high80.0-94.0The [facility] HospitalComment on above:Performed By: #### POCGLUC #### [facility] [address] [place] [address] Dr. Juliet Dumont #0.7 103/ulNormal0.3-0.8The [facility] HospitalComment on above:Performed By: #### POCGLUC #### [facility] [address] [place] [address] Dr. Juliet Maciasocytes/100 WBC (Bld)9.9 %Normal1.7-12.0The [facility] Comment on above:Performed By: #### POCGLUC #### [facility] [address] [place] [address] Dr. Juliet Del Angel #3.7 103/ulNormal1.4-6.5The [facility] HospitalComment on above:Performed By: #### POCGLUC #### [facility] [address] [place] [address] Dr. Juliet Caballeroophils/100 WBC (Bld)54.4 %Bmkisx74.0-75.0The [facility] HospitalComment on above:Performed By: #### POCGLUC #### [facility] [address] [place] [address] Dr. Juliet Cespedeslet mean volume (Bld) [Entitic vol]9.0 fLCritically low 9.5-13.5The [facility] HospitalComment on above:Performed By: #### POCGLUC #### [facility] [address] [place] [address] [address] Juliet WilkesPLT211 103/xrWwvgjk593-074Lqs [facility] HospitalComment on above: Performed By: #### POCGLUC #### [facility] [address] [place] [address] [address] Juliet WilkesRBC4.46 106/ulCritically low4.70-6.10The [facility] HospitalComment on above:Performed By: #### POCGLUC #### [facility] [address] [place] [address] [address] Juliet WilkesWBC6.8 103/ulNormal4.0-11.0The [facility] HospitalComment on above: Performed By: #### POCGLUC #### [facility] [address] [place] [address] Dr. Juliet WilkesPOINT OF CARE GLUCOSEon 02-21-8789Wfqgsyt [Mass/Vol]100 mg/dL Nnqovb00-228Wev [facility] HospitalComment on above:Performed By: #### POCGLUC #### [facility] [address] [place] [address] Dr. Juliet WilkesGlucose [Mass/Vol]94 mg/wXWnnbrt40-982EuvMercy Health Comment on above:Performed By: #### A1C #### [facility] [address] [place] [address] Dr. Juliet WilkesPROF CHEM 8 (BAS METB)on 75-25-2681Zghah gap [Moles/Vol]14.0 mmol/LNormalThe [facility] HospitalComment on above:Performed By: #### BMP #### [facility] [address] [place] [address] Dr. Juliet WilkesCalcium [Mass/Vol]9.0 mg/dLNormal8.5-10.1[facility] Comment on above:Performed By: #### BMP #### [facility] [address] [place] [address] Dr. Juliet WilkesChloride [Moles/Vol]107 mmol/ZPmajnv19-706Xtm [facility] Comment on above:Performed By: #### BMP #### [facility] [address] [place] [address] [address] Juliet WilkesCO2 [Moles/Vol]28.7 mmol/ECpadpl46.0-32.0The [facility] Comment on above:Performed By: #### BMP #### [facility] [address] [address] [address] Juliet WilkesCreatinine [Mass/Vol]1.41 mg/dLCritically high0.70-1.30The [facility] HospitalComment on above:Performed By: #### BMP #### [facility] [address] [place] [address] [address] Laureano ChangEGFR-AF WELSH>60Normal>=60The [facility] HospitalComment on above:Performed By: #### BMP #### [facility] [address] [address] [address] Juliet HuddlestonGFR-NON AF VCIFMIYZ70 mL/min/1.81t5Nmhokegjmy low>=60The [facility] HospitalComment on above:Performed By: #### BMP #### [facility] [address] [address] [address] Juliet WilkesGlucose [Mass/Vol]95 mg/eCZcnnyd04-342MejMercy Health Comment on above:Performed By: #### BMP #### [facility] [address] [place] [address] [address] Juliet WilkesPotassium [Moles/Vol]4.7 mmol/LNormal3.5-5.1[facility] Comment on above:Performed By: #### BMP #### [facility] [address] [place] [address] [address] Juliet WilkesSodium [Moles/Vol]145 mmol/DAgoyjc804-705QyhMercy Health Comment on above:Performed By: #### BMP #### [facility] [address] [place] [address] [address] Juliet WilkesUrea nitrogen [Mass/Vol]25.0 mg/dLCritically high7.0-18.0The [facility] HospitalComment on above:Performed By: #### BMP #### [facility] [address] [place] [address] [address] Juliet WilkesUrea nitrogen/Creatinine [Mass ratio]17.7 mg/mgNoMartins Ferry HospitalComment on above:Performed By: #### BMP #### [facility] [address] [place] [address] [address] Juliet Watson Visiton 20-88-7245Xcrkqz-up [id number] IlyaCarlos Farrar 1955 M Date Provider Department Center 07/31/2022 BENTLEY MENDOZA [facility] Family History Problem Relation Age of Onset Stroke Father Family Status - Relation Status Age at Father Level of Service:44040 CT OFFICE/OUTPATIENT ESTABLISHED MOD MDM 30-39 MIN Reason for Visit and Comments: Hyperlipidemia [182] Hypertension [882530] history of PE [Other]NormalUnWayne HospitalCULTURE WOUNDon 04-24-8934KNSWEKV WOUNDCulture Observations: No growth of anaerobes at 72 hours. Isolate 1 Stenotrophomonas maltophilia Moderate growth of ORGANISM 1 Stenotrophomonas maltophilia ANTIBIOTIC M.I.C RX STATUS Levofloxacin 1 S F Trimethoprim/Sulfamethoxazole <=20 S FNormalThe [facility] HospitalComment on above:Performed By: #### WOUNDCX ####[facility] [address] [place] [address]Dr. Juliet WilkesGLYCOHEMOGLOBIN A1Con 32-09-1950TUI RECOMMENDATIONSEE BELOWNoMartins Ferry HospitalComment on above:Result Comment: ADA RECOMMENDED LIMIT 4.0 - 6.0 ADA THERAPEUTIC TARGET < 7.0 ACTION SUGGESTED > 7.0Performed By: #### A1C #### [facility] [address] [address] [address] Juliet WilkesGlucose [Mass/Vol]111 mg/dLParkview Health Bryan HospitalComment on above:Performed By: #### A1C #### [facility] [address] [address] [address] Juliet WilkesHbA1c (Bld) [Mass fraction]5.5 %Normal4.5-6.2The [facility] HospitalComment on above:Performed By: #### A1C #### [facility] [address] [address] [address] Juliet Valdovinos M/2D COMPLETEon 03-29-2304ISDOXZRTYR M/2D COMPLETE Patient: CARLOS CARABALLO Exam Date: 06/28/2022 : 1955 Gender:M Ordering : DR KEN MERCER M.D. Admission #: [id number] Family : Order #: [id number] CLICK HERE TO VIEW EXAM ECHOCARDIOGRAM REPORT [...] by: Amari Mcmanus M.D. on 07/04/2022 at 13:38NoMartins Ferry HospitalURIC ACID SERUMon 51-12-7542Xrkjw [Mass/Vol]6.9 mg/dLNormal3.5-7.2[facility] HealthComment on above:Performed By: #### A1C #### [facility] [address] [place] [address] Dr. Juliet WilkesXR KUB 1 VIEWon 94-76-3411PD KUB 1 VIEWEXAMINATION: XR KUB 1 VIEW [...] Electronically authenticated by: RACHEAL STEELE Date: 2022-05-28 07:31NormalThMercy Health [address] AUTO DIFFon 99-26-8078NQAP #0.1 103/ulNormal0.0-0.1The [facility] HospitalComment on above:Performed By: #### CBC #### [facility] [address] [address] [address] Juliet WilkesBasophils/100 WBC (Bld)0.9 %Normal0.2-2.0[facility] Comment on above:Performed By: #### CBC #### [facility] [address] [place] [address] Dr. Juliet Padgett #0.4 103/ulNormal0.0-0.7The [facility] HospitalComment on above: Performed By: #### CBC #### [facility] [address] [place] [address] Dr. Juliet Huddlestonosinophils/100 WBC (Bld)5.2 %Normal0.9-7.0The [facility] Comment on above:Performed By: #### CBC #### [facility] [address] [place] [address] Dr. Juliet Huddlestonrythrocyte distribution width (RBC) [Ratio]13.6 %Qpfgml97.0-15.0 [facility] HealthComment on above:Performed By: #### CBC #### [facility] [address] [place] [address] Dr. Juliet WilkesHematocrit (Bld) [Volume fraction]40.5 %Critically low42.0-54.0 The [facility] HospitalComment on above:Performed By: #### CBC #### [facility] [address] [address] [address] Juliet WilkesHemoglobin (Bld) [Mass/Vol]13.7 g/dLCritically low14.0-18.0[facility] HealthComment on above:Performed By: #### CBC #### [facility] [address] [place] [address] Dr. Juliet Cervantes #0.02 10e3/ulNormal0.00-0.03The [facility] HospitalComment on above:Performed By: #### CBC #### [facility] [address] [place] [address] Dr. Juliet Cervantes %0.3 %Normal0.0-0.5The [facility] HospitalComment on above: Performed By: #### CBC #### [facility] [address] [address] [address] Juliet Arambula #1.9 103/ulNormal1.2-3.8The [facility] HospitalComment on above:Performed By: #### CBC #### [facility] [address] [place] [address] Dr. Juliet Westhocytes/100 WBC (Bld)27.7 %Qqntgg71.5-60.0The [facility] HospitalComment on above:Performed By: #### CBC #### [facility] [address] [place] [address] Dr. Juliet Melendez DIFF REQNONormalThe [facility] HospitalComment on above: Performed By: #### CBC #### [facility] [address] [place] [address] Dr. Juliet Yanes (RBC) [Entitic mass]33.3 urLmeuhm92.9-34.0The [facility] HospitalComment on above:Performed By: #### CBC #### [facility] [address] [place] [address] Dr. Juliet Valderrama (RBC) [Mass/Vol]33.8 g/pRUcvfzt52.9-35.2The [facility] HospitalComment on above:Performed By: #### CBC #### [facility] [address] [place] [address] Dr. Juliet Penaloza (RBC) [Entitic vol]98.3 fLCritically high80.0-94.0The [facility] HospitalComment on above:Performed By: #### CBC #### [facility] [address] [place] [address] Dr. Yilan ChangMONO #0.7 103/ulNormal0.3-0.8The [facility] HospitalComment on above:Performed By: #### CBC #### [facility] [address] [place] [address] Dr. Juliet Maciasocytes/100 WBC (Bld)9.9 %Normal1.7-12.0The [facility] Comment on above:Performed By: #### CBC #### [facility] [address] [place] [address] Dr. Juliet Del Angel #3.8 103/ulNormal1.4-6.5The [facility] HospitalComment on above:Performed By: #### CBC #### [facility] [address] [place] [address] Dr. Juliet Leoneutrophils/100 WBC (Bld)56.0 %Fuiuzx27.0-75.0The [facility] HospitalComment on above:Performed By: #### CBC #### [facility] [address] [place] [address] Dr. Juliet WilkesPlatelet mean volume (Bld) [Entitic vol]9.0 fLCritically low 9.5-13.5The [facility] HospitalComment on above:Performed By: #### CBC #### [facility] [address] [place] [address] Dr. Juliet WilkesPLT201 103/noMsbbvx028-413Vit [facility] HospitalComment on above: Performed By: #### CBC #### [facility] [address] [place] [address] Dr. Juliet WilkesRBC4.12 106/ulCritically low4.70-6.10The [facility] HospitalComment on above:Performed By: #### CBC #### [facility] [address] [place] [address] Dr. Juliet WilkesWBC6.7 103/ulNormal4.0-11.0The [facility] HospitalComment on above: Performed By: #### CBC #### [facility] [address] [place] [address] Dr. Juliet WilkesGLYCOHEMOGLOBIN A1Con 11-48-0177GMY RECOMMENDATIONSEE BELOWNormwv The [facility] HospitalComment on above:Result Comment: ADA RECOMMENDED LIMIT 4.0 - 6.0 ADA THERAPEUTIC TARGET < 7.0 ACTION SUGGESTED > 7.0Performed By: #### A1C #### [facility] [address] [place] [address] Dr. Juliet WilkesGlucose [Mass/Vol]108 mg/dLNoMartins Ferry HospitalComment on above:Performed By: #### A1C #### [facility] [address] [place] [address] Dr. Juliet WilkesHbA1c (Bld) [Mass fraction]5.4 %Normal4.5-6.2The [facility] HospitalComment on above:Performed By: #### A1C #### [facility] [address] [place] [address] Dr. Juliet WilkesLIPID PROFILEon 53-59-8232JCGM-HDL RATIO NORMSEE BELOWParkview Health Bryan HospitalComment on above:Result Comment: 3.3 - 4.4 LOW RISK 4.4 - 7.1 AVERAGE RISK 7.1 - 11.0 MODERATE RISK >11.0 HIGH RISKPerformed By: #### LIPID, CMP #### [facility] [address] [place] [address] Dr. Juliet Nguyenesterol [Mass/Vol]154 mg/dLNormal<=200The [facility] Comment on above:Performed By: #### LIPID, CMP #### [facility] [address] [place] [address] Dr. Juliet Nguyenesterol in HDL [Mass/Vol]29 mg/dLCritically lsc46-86Hwl [facility] HospitalComment on above:Performed By: #### LIPID, CMP #### [facility] [address] [place] [address] Dr. Juliet Nguyenesterol in LDL [Mass/Vol]64.2 mg/dLNoMartins Ferry HospitalComment on above:Performed By: #### LIPID, CMP #### [facility] [address] [place] [address] Dr. Yilan ChangCholesterol.total/Cholesterol in HDL [Mass ratio]5.3 {ratio} NormalThe [facility] HospitalComment on above:Performed By: #### LIPID, CMP #### [facility] [address] [place] [address] Dr. Juliet Kenney NORMAL> or = 60 mg/dl - LOW CARDIOVASCULAR RISK <40 mg/dl - HIGH CARDIOVASCULAR RISKParkview Health Bryan HospitalComment on above:Performed By: #### LIPID, CMP #### [facility] [address] [place] [address] Dr. Juliet WilkesLDL CALC NORMALSEE BELOWParkview Health Bryan HospitalComment on above:Result Comment: <100 mg/dl OPTIMAL 100 - 129 mg/dl NEAR OR ABOVE OPTIMAL 130 - 159 mg/dl BORDERLINE HIGH 160 - 189 mg/dl HIGH >190 mg/dl VERY HIGH Performed By: #### LIPID, CMP #### [facility] [address] [place] [address] Dr. Juliet WilkesTriglyceride [Mass/Vol]304 mg/dLCritically high<=150The [facility] HospitalComsouthwest regional rehabilitation center on above:Performed By: #### LIPID, CMP #### [facility] [address] [place] [address] Dr. Juliet WilkesVLDL CALC60.8 mg/dLNoMartins Ferry HospitalComsouthwest regional rehabilitation center on above: Performed By: #### LIPID, CMP #### [facility] [address] [place] [address] Dr. Juliet WilkesPROF 14(COMP METB)on 72-92-6723Pauhncj [Mass/Vol]3.7 g/dLNormal 3.4-5.0Mercy HealthComment on above:Performed By: #### LIPID, CMP #### [facility] [address] [place] [address] Dr. Juliet WilkesAlbumin/Globulin [Mass ratio]1.1 {ratio}NormalThe [facility] HospitalComment on above:Performed By: #### LIPID, CMP #### [facility] [address] [place] [address] Dr. Juliet Caro [Catalytic activity/Vol]87 U/ZLcuycz40-413Xri [facility] HospitalComment on above:Performed By: #### LIPID, CMP #### [facility] [address] [address] [address] Juleit Benavidez [Catalytic activity/Vol]52 U/PLkvkzj16-73Tij [facility] HospitalComment on above:Performed By: #### LIPID, CMP #### [facility] [address] [address] [address] Juliet Buschon gap [Moles/Vol]11.5 mmol/LNormalMercy Health Comment on above:Performed By: #### LIPID, CMP #### [facility] [address] [address] [address] Juliet Holloway [Catalytic activity/Vol]27 U/GZycpvj95-18Jkq [facility] HospitalComment on above:Performed By: #### LIPID, CMP #### [facility] [address] [place] [address] Dr. Juliet WilkesBilirubin [Mass/Vol]0.4 mg/dLNormal0.2-1.0[facility] Comment on above:Performed By: #### LIPID, CMP #### [facility] [address] [place] [address] Dr. Juliet WilkesCalcium [Mass/Vol]8.7 mg/dLNormal8.5-10.1[facility] Comment on above:Performed By: #### LIPID, CMP #### [facility] [address] [place] [address] Dr. Juliet WilkesChloride [Moles/Vol]106 mmol/PLvprow37-055SjlMercy Health Comment on above:Performed By: #### LIPID, CMP #### [facility] [address] [place] [address] Dr. Juliet WilkesCO2 [Moles/Vol]28.2 mmol/FLlwayd72.0-32.0The [facility] Comment on above:Performed By: #### LIPID, CMP #### [facility] [address] [place] [address] Dr. Juliet WilkesCreatinine [Mass/Vol]1.21 mg/dLNormal0.70-1.30Mer[facility] HealthComment on above:Performed By: #### LIPID, CMP #### [facility] [address] [place] [address] Dr. Juliet HuddlestonGFR-AF WELSH>60Normal>=60The [facility] HospitalComment on above:Performed By: #### LIPID, CMP #### [facility] [address] [place] [address] Dr. Juliet Mcclure-NON AF WELSH=60Normal>=60Mercy HealthComment on above:Performed By: #### LIPID, CMP #### [facility] [address] [place] [address] Dr. Juliet WilkesGlobulin (S) [Mass/Vol]3.4 g/dLNormalThe [facility] HospitalComment on above:Performed By: #### LIPID, CMP #### [facility] [address] [place] [address] Dr. Juliet WilkesGlucose [Mass/Vol]100 mg/nIDuhylc34-408RyqMercy Health Comment on above:Performed By: #### LIPID, CMP #### [facility] [address] [place] [address] Dr. Juliet WilkesPotassium [Moles/Vol]4.7 mmol/LNormal3.5-5.1[facility] Comment on above:Performed By: #### LIPID, CMP #### [facility] [address] [place] [address] Dr. Juliet WilkesProtein [Mass/Vol]7.1 g/dLNormal6.4-8.2The [facility] Comment on above:Performed By: #### LIPID, CMP #### [facility] [address] [place] [address] Dr. Juliet WilkesSodium [Moles/Vol]141 mmol/BXqyzks041-650IakMercy Health Comment on above:Performed By: #### LIPID, CMP #### [facility] [address] [place] [address] Dr. Juliet WilkesUrea nitrogen [Mass/Vol]23.0 mg/dLCritically high7.0-18.0Mercy HealthComment on above:Performed By: #### LIPID, CMP #### [facility] [address] [place], [place] [address] Dr. Juliet Yee nitrogen/Creatinine [Mass ratio]19.0 mg/mgNormSalem Regional Medical CenterComment on above:Performed By: #### LIPID, CMP #### [facility] [address] [place], [place] [address] Dr. Juliet WilkesVC CONSULT FOLLOWUPon 39-89-6354EO CONSULT FOLLOWUPPatient: CARLOS CARABALLO Exam Date: 04/08/2022 : 1955 Gender:M Ordering : DR RACHEAL STEELE M.D. Admission #: [id number] Family : Order #: [id number] CLICK HERE [...] by: Racheal Steele MD on 04/08/2022 at 11:30[facility] HospitalVC EXT VENOUS RT LIMITEDon 16-77-3637UQ EXT VENOUS RT LIMITEDPatient: CARLOS CARABALLO Exam Date: 04/08/2022 : 1955 Gender:M Ordering : DR RACHEAL STEELE M.D. Admission #: [id number] Family : Order #: [id number] CLICK HERE TO VIEW EXAM RADIOLOGY REPORT [...] by: Racheal Steele MD on 04/08/2022 at 11:31[facility] HospitalVC INJ FOAM SCLERO W US MLTIon 50-77-6929SM INJ FOAM SCLERO W US MLTIPatient: CARLOS CARABALLO Exam Date: 04/03/2022 : 1955 Gender:M Ordering : DR RACHEAL STEELE M.D. Admission #: [id number] Family : DR NATHALY Ojeda Order #: [id number] CLICK HERE TO VIEW EXAM RADIOLOGY REPORT [...] hours, av (more content not included)...Normal The [facility] HospitalVC CONSULT FOLLOWUPon 63-49-7818OT CONSULT FOLLOWUPPatient: ILYA, CARLOS Marianna Exam Date: 03/25/2022 : 1955 Gender:M Ordering : DR RACHEAL STEELE M.D. Admission #: [id number] Family : Order #: [id number] CLICK HERE TO VIEW EXAM RADIOLOGY REPORT [...] by: Elin Mccartney M.D. on 03/25/2022 at 08:41[facility] HospitalVC EXT VENOUS RT LIMITEDon 98-78-6520FS EXT VENOUS RT LIMITEDPatient: CARLOS CARABALLO Exam Date: 03/25/2022 : 1955 Gender:M Ordering : DR RACHEAL STEELE M.D. Admission #: [id number] Family : Order #: [id number] CLICK HERE TO VIEW EXAM RADIOLOGY REPORT [...] by: Elin Mccartney M.D. on 03/25/2022 at 08:39[facility] HospitalVC ENDOVENOUS ABL 1ST V RTon 76-24-5379EO ENDOVENOUS ABL 1ST V RT Patient: CARLOS CARABALLO Exam Date: 03/19/2022 : 1955 Gender:M Ordering : DR RACHEAL STEELE M.D. Admission #: [id number] Family : Order #: [id number] CLICK HERE TO VIEW EXAM RADIOLOGY REPORT [...] by: Racheal Steele MD on 03/19/2022 at 08:58[facility] HospitalVC CONSULT FOLLOWUPon 68-62-0416KV CONSULT FOLLOWUPPatient: ILYA, CARLOS Marianna Exam Date: 02/18/2022 : 1955 Gender:M Ordering : DR RACHEAL STEELE M.D. Admission #: [id number] Family : Order #: [id number] CLICK HERE TO VIEW EXAM RADIOLOGY REPORT [...] by: Racheal Steele MD on 02/18/2022 at 09:45[facility] HospitalVC EXT VENOUS LT LIMITEDon 84-62-0669HM EXT VENOUS LT LIMITEDPatient: ILYA CARLOS Marianna Exam Date: 02/18/2022 : 1955 Gender:M Ordering : DR RACHEAL STEELE M.D. Admission #: [id number] Family : Order #: [id number] CLICK HERE TO VIEW EXAM RADIOLOGY REPORT [...] varicose veins remain off of SSV and paint mixer machine mid posterior calf. *Exam performed in accordance with [facility] practice guidelines- Peripheral venous ultrasound, October 07, 2009. CONCLUSION: Post ablation occlusion of left leg varicose veins Dictated by: Racheal Steele MD on 02/18/2022 at 09:32 Approved by: Racheal Steele MD on 02/18/2022 at 09:36[facility] HospitalVC INJ FOAM SCLERO W US MLTIon 39-08-8809IA INJ FOAM SCLERO W US MLTIPatient: CARLOS CARABALLO Exam Date: 02/13/2022 : 1955 Gender:M Ordering : DR RACHEAL STEELE M.D. Admission #: [id number] Family : Order #: [id number] CLICK HERE TO VIEW EXAM RADIOLOGY REPORT [...] by: Elin Mccartney M.D. on 02/13/2022 at 10:15NFort Hamilton HospitalVC CONSULT FOLLOWUPon 90-53-2688PC CONSULT FOLLOWUPPatient: CARLOS CARABALLO Exam Date: 02/06/2022 : 1955 Gender:M Ordering : DR RACHEAL STEELE M.D. Admission #: [id number] Family : Order #: [id number] CLICK HERE TO VIEW EXAM RADIOLOGY REPORT [...] by: Elin Mccartney M.D. on 02/06/2022 at 09:53[facility] HospitalVC EXT VENOUS LT LIMITEDon 81-53-5897RA EXT VENOUS LT LIMITEDPatient: CARLOS CARABALLO Exam Date: 02/06/2022 : 1955 Gender:M Ordering : DR RACHEAL STEELE M.D. Admission #: [id number] Family : Order #: [id number] CLICK HERE TO VIEW EXAM RADIOLOGY REPORT [...] by: Elin Mccartney M.D. on 02/06/2022 at 09:49[facility] HospitalGLYCOHEMOGLOBIN A1Con 61-89-1624ZRR RECOMMENDATIONSEE Providence HospitalComment on above:Result Comment: ADA RECOMMENDED LIMIT 4.0 - 6.0 ADA THERAPEUTIC TARGET < 7.0 ACTION SUGGESTED > 7.0Performed By: #### A1C #### [facility] [address] [address] [address] Juliet WilkesGlucose [Mass/Vol]108 mg/dLNoMartins Ferry HospitalComment on above:Performed By: #### A1C #### [facility] [address] [address] [address] Juliet WilkesHbA1c (Bld) [Mass fraction]5.4 %Normal4.5-6.2The [facility] HospitalComment on above:Performed By: #### A1C #### [facility] [address] [address] [address] Juliet WilkesPROF 14(COMP METB)on 48-56-9079Gjmratb [Mass/Vol]4.0 g/dLNormal 3.4-5.0The [facility] HospitalComment on above:Performed By: #### CMP ####[facility] [address] [place], [place] [address]Dr.Juliet Wilkes Albumin/Globulin [Mass ratio]1.2 {ratio}NormalThe [facility] HospitalComment on above:Performed By: #### CMP ####[facility] [address] [place], [place] [address]Dr.Juliet WilkesALP [Catalytic activity/Vol]89 U/LNormal 46-116The [facility] HospitalComment on above:Performed By: #### CMP ####[facility] [address] [place], [place] [address]Dr.Juliet WilkesALT [Catalytic activity/Vol]81 U/LCritically dzod71-13Xrj [facility] HospitalComment on above:Performed By: #### CMP ####[facility] [address] [place], [place] [address]Dr.Juliet WilkesAnion gap [Moles/Vol]13.6 mmol/LNormal The [facility] HospitalComment on above:Performed By: #### CMP ####[facility] [address] [place], [place] [address]Dr.Juliet ChangAST [Catalytic activity/Vol]32 U/CYhnadk21-00Akn [facility] HospitalComment on above: Performed By: #### CMP ####[facility] [address] [place], [place] [address]Dr.Juliet WilkesBilirubin [Mass/Vol]0.5 mg/dLNormal 0.2-1.0The [facility] HospitalComment on above:Performed By: #### CMP ####[facility] [address] [place], [place] [address]Dr.Juliet Wilkes Calcium [Mass/Vol]8.9 mg/dLNormal8.5-10.1The [facility] HospitalComment on above: Performed By: #### CMP ####[facility] [address] [place], [place] [address]Dr.Juliet ChangChloride [Moles/Vol]106 mmol/LNormal 98-107The [facility] HospitalComment on above:Performed By: #### CMP ####[facility] [address] [place], [place] [address]Dr.Yilan ChangCO2 [Moles/Vol]27.1 mmol/MGpmeni33.0-32.0The [facility] HospitalComment on above: Performed By: #### CMP ####[facility] [address] [place], [place] [address]Dr.Yilan ChangCreatinine [Mass/Vol]1.46 mg/dL Critically high0.70-1.30The [facility] HospitalComment on above:Performed By: #### CMP ####[facility] [address] [place], [place] [address]Dr.Yilan ChangEGFR-AF ZNXUBUPQ38 mL/min/1.05q7Wmbvgofaww low>=60The [facility] HospitalComment on above:Performed By: #### CMP ####[facility] [address] [place], [place] [address]Dr.Yilan ChangEGFR-NON AF FMARSERC19 mL/min/1.85n5Ugtxbmrslh low>=60The [facility] HospitalComment on above: Performed By: #### CMP ####[facility] [address] [place], [place] [address]Dr.Yilan ChangGlobulin (S) [Mass/Vol]3.4 g/dLNormalThe [facility] HospitalComment on above:Performed By: #### CMP ####[facility] [address] [place], [place] [address]Dr.Yilan ChangGlucose [Mass/Vol]93 mg/sNDixpoh86-482Hol [facility] HospitalComment on above:Performed By: #### CMP ####[facility] [address] [place], [place] [address]Dr.Yilan ChangPotassium [Moles/Vol]4.7 mmol/LNormal3.5-5.1The [facility] HospitalComment on above:Performed By: #### CMP ####[facility] [address] [place], [place] [address]Dr.Yilan ChangProtein [Mass/Vol]7.4 g/dLNormal6.4-8.2The [facility] HospitalComment on above:Performed By: #### CMP ####[facility] [address] [address]Dr.Yilan ChangSodium [Moles/Vol]142 mmol/NPfzlhl323-318Nek [facility] HospitalComment on above:Performed By: #### CMP ####[facility] [address] [address]Dr.Yilan ChangUrea nitrogen [Mass/Vol]25.0 mg/dLCritically high7.0-18.0The [facility] HospitalComment on above:Performed By: #### CMP ####[facility] [address] [address]Dr.Yilan ChangUrea nitrogen/Creatinine [Mass ratio] 17.1 mg/mgNormalThe [facility] HospitalComment on above:Performed By: #### CMP ####[facility] [address] [address]Dr. Juliet ChangVC ENDOVENOUS ABL 1ST V LTon 06-72-7729OB ENDOVENOUS ABL 1ST V LT Patient: CARLOS CARABALLO Exam Date: 01/30/2022 : 1955 Gender:M Ordering : DR RACHEAL STEELE M.D. Admission #: [id number] Family : Order #: [id number] CLICK HERE TO VIEW EXAM RADIOLOGY REPORT [...] by: Elin Mccartney M.D. on 01/30/2022 at 12:00[facility] HospitalPOINT OF CARE GLUCOSEon 22-93-4782Onhuefy [Mass/Vol]84 mg/lGKkmguz23-959 The [facility] HospitalComment on above:Performed By: #### POCGLUC #### [facility] [address] [address] [address] Juliet WilkesVC COMP CONSULTATIONon 63-94-4286EQ COMP CONSULTATIONPatient: CARLOS CARABALLORusty Exam Date: 01/21/2022 : 1955 Gender:M Ordering : DR RACHEAL STEELE M.D. Admission #: [id number] Family : Order #: [id number] CLICK HERE TO VIEW EXAM RADIOLOGY REPORT [...] for years. The patient is retired from [employer] after working 42 years. The patient denies [...] information, and this was performed [facility]. See separate history and physical for medication [...] incompetent branch saphenous tributary/varicose veins. Bilateral incompetent paint mixer machine veins. PHYSICAL EXAM: The right leg demonstrates [...] pulses were present bilaterally. IMPRESSION: 1. Bilateral yfji-bg-gzfdmimk great saphenous vein and mild right small [...] by: Racheal Steele MD on 01/21/2022 at 11:46[facility] HospitalVC VENOUS REFLUX MARIE Ton 77-41-0090PJ VENOUS REFLUX MARIE LMTPatient: CARLOS CARABALLO Exam Date: 01/21/2022 : 1955 Gender:M Ordering : DR RACHEAL STEELE M.D. Admission #: [id number] Family : DR NATHALY BOONE . Order #: [id number] CLICK HERE TO VIEW EXAM RADIOLOGY REPORT [...] Compressibility: Normal. Flow: Mild deep venous reflux. Pickle Processor: Post/prox calf 5.9mm, 0.7s reflux. Prox/med calf [...] by: Racheal Steele MD on 01/21/2022 at 10:40[facility] POINT OF CARE GLUCOSEon 44-50-2181Femjeps [Mass/Vol]87 mg/rHRficea26-987KhqMercy HealthComment on above:Performed By: #### POCGLUC ####[facility] [address] [place], [place] [address]Vt. Juliet Wilkes SURGICAL PATHOLOGYon 25-64-1089QSENIESV PATHOLOGYSpecimen #: [id number] Submitting Physician: JULIET WILKES M.D. FINAL DIAGNOSIS [place], [place]; [id number] (12/07/2020) Liver, mass , biopsy (A1, A2, [...] do not hesitate to contact us at [phone] with questions or if additional follow up information becomes available. This case was reviewed in conjunction with the GI pathology fellow, Apoorva Diallo MD. The following stains were performed at the [facility] in order to further characterize [...] tests have been determined by [facility]'s Frankie JRusty [facility] [place] ([facility]) in a manner consistent with CLIA requirements. One or more of these tests have not been cleared or approved by the FDA. [facility] is regulated under CLIA as qualified to perform high-complexity testing. These tests are used for clinical purposes. They should not be regarded as investigational or for research. Nicolasa Cheema M.D. (Electronic Signature) SPECIMEN SUBMITTED A: 12 slides [id number] CLINICAL DATA Mass Date of Report: 03/27/2021 Date of Procedure: 03/16/2021 Date of Receipt: 03/15/2021 Submitted by: JULIET WILKES M.D. Location: Diagnostic interpretation performed at [place] [address]. CLIA Number: [id number] [facility] Comment on above:Performed By: #### S #### See report for performing lab information. Vital Signs Date TimeVital SignValuePerforming OpbtpyndzDgyzhiii02-13-4952 08:53-0400Body bkieyn020 cmTulio Ruggiero MD Work Phone: [facility] HospitalDjkyjiawcg10-51-5927 08:53-0400Body mass index (BMI) [Ratio]37.62 kg/m2Tulio Ruggiero MD Work Phone: [facility] HospitalMficvgovhm18-89-8649 08:53-0400Body temperature 97.11 [degF]Tulio Ruggiero MD Work Phone: noMer[facility] hospital springfieldSeubwyvwkc27-03-7397 08:53-0400Body psrvuh135.9 kgTulio Ruggiero MD Work Phone: noMercy hospital springfieldIxpyoptsvg73-22-1067 08:53-0400Diastolic blood flwbadzy55 mm[Hg]Tulio Ruggiero MD Work Phone: [facility] HospitalJenvmpwoln55-55-6875 08:53-0400Heart rate84 /min Tulio Ruggiero MD Work Phone: [facility] HospitalMcqtrktoae84-49-9596 08:53-0400Respiratory rate20 /minTulio Ruggiero MD Work Phone: [facility] HospitalHrwukvjfiv56-50-0922 08:53-6464ScO0% (BldA) [Mass fraction]98 %Tulio Ruggiero MD Work Phone: [facility] HospitalVkxrngsqas26-22-4616 08:53-0400Systolic blood fnguiwgy263 mm[Hg]Tulio Ruggiero MD Work Phone: [facility] HospitalCgzmtxtais32-69-0557 13:22-0400Body gvltiw251 cm Tulio Ruggiero MD Work Phone: [facility] HospitalJtmwfxhmqq06-17-6253 13:22-0400Body mass index (BMI) [Ratio]38.26 kg/m2Tulio Ruggiero MD Work Phone: [facility] HospitalDqvyujoglr57-50-7133 13:22-0400Body temperature 97.11 [degF]Tulio Ruggiero MD Work Phone: [facility] HospitalOtpkyqfvfc82-13-4386 13:22-0400Body hmxayo361.17 kgTulio Ruggiero MD Work Phone: [facility] HospitalMyjmeakoiz04-78-3905 13:22-0400Diastolic blood mm[Hg]Tulio Ruggiero MD Work Phone: [facility] HospitalZownpjmblp90-75-5324 13:22-0400Heart rate97 /min Tulio Ruggiero MD Work Phone: [facility] HospitalAuackkmfio03-83-9599 13:22-0400Respiratory rate18 /minTulio Ruggiero MD Work Phone: [facility] HospitalVcvmksdujr27-66-5177 13:22-3686EhM6% (BldA) [Mass fraction]99 %Tulio Ruggiero MD Work Phone: [facility] HospitalAsragzvgih05-21-0882 13:22-0400Systolic blood cbbkirkh765 mm[Hg]Tulio Ruggiero MD Work Phone: [facility] HospitalNjdgblrfcj25-59-8072 09:11-0500Body mass index (BMI) [Ratio]37.75 kg/m2Tulio Ruggiero MD Work Phone: [facility] HospitalOkwhkkycsj68-07-0444 09:11-0500Body temperature 98.4 [degF]Tulio Ruggiero MD Work Phone: [facility] HospitalLbxswvvupb63-13-5058 09:11-0500Body uyphli900.36 kgTulio Ruggiero MD Work Phone: [facility] HospitalFrqscfsdsf79-23-3834 09:11-0500Diastolic blood eycchtxt84 mm[Hg]Tulio Ruggiero MD Work Phone: [facility] HospitalAtknppufjd28-85-7342 09:11-0500Heart rate96 /min Tulio Ruggiero MD Work Phone: [facility] HospitalBokbdqgvff73-50-4005 09:11-0500Respiratory rate18 /minTulio Ruggiero MD Work Phone: [facility] HospitalVyctpkitci50-83-5829 09:11-4658PrF6% (BldA) [Mass fraction]96 %Tulio Ruggiero MD Work Phone: [facility] HospitalXwdrravlqe00-71-7926 09:11-0500Systolic blood tjcanphr588 mm[Hg]Tulio Ruggiero MD Work Phone: [facility] HospitalQvdnpaogwr76-84-4587 08:56-0500Blood Pressure LocationJEFRANKIE ABREU [facility]11-14-2024 08:56-0500Body nqnortlmtyn04.6 [degF]LIZ ABREU [facility]11-14-2024 08:56-0500Diastolic blood vpvogytc28 mm[Hg]LIZ ABREU [facility]11-14-2024 08:56-0500Heart rate79 /minJENNIFER DAVID [facility]11-14-2024 08:56-0500Respiratory rate18 /minJENNIFER DAVID [facility]11-14-2024 08:56-0500Systolic blood mm[Hg]LIZ DAVID [facility]04-23-2024 08:38-0400Blood Pressure LocationJENNIFER DAVID [facility]04-23-2024 08:38-0400Diastolic blood mcgocxhp60 mm[Hg]LIZ DAVID [facility]04-23-2024 08:38-0400Heart rate80 /minJENNIFER DAVID [facility]04-23-2024 08:38-0400Respiratory rate16 /minJENNIFER DAVID [facility]04-23-2024 08:38-0400Systolic blood euxqyrgr967 mm[Hg]LIZ DAVID [facility]11-21-2023 09:59-0500Blood Pressure LocationJENNIFER DAVID [facility]11-21-2023 09:59-0500Diastolic blood nydhghny15 mm[Hg]LIZ DAVID [facility]11-21-2023 09:59-0500Heart rate70 /minJENNIFER DAVID [facility]11-21-2023 09:59-0500Respiratory rate16 /minJENNIFER DAVID [facility]11-21-2023 09:59-0500Systolic blood gikeqzik533 mm[Hg]LIZ DAVID [facility]11-10-2022 09:45-0500Body .96 cmThomas Olexa Other [employer] Other 11-10-2022 09:45-0500Body mass index (BMI) [Ratio] 40.57 kg/y9Dodnmk Olexa Other [employer] Other 11-10-2022 09:45-0500Body .34 kgThomas Olexa Other [employer] Other 01-25-2022 14:15-0500Body qonvjq711.96 cmThomas Olexa Other [employer] Other 01-25-2022 14:15-0500Body mass index (BMI) [Ratio] 40.64 kg/e6Kmasof Olexa Other [employer] Other 01-25-2022 14:15-0500Body nafnfa256.61 kgThomas Olexa Other [employer] Other 09-30-2021 10:30-0400Body ewduzt468.96 cmDavid Hykes Other [employer] Other 09-30-2021 10:30-0400Body mass index (BMI) [Ratio] 41.75 kg/c9Edtwehortensia Daniels Other [employer] Other 09-30-2021 10:30-0400Body juzswa338.51 kgDaviezequiel Daniels Other [employer] Other 09-30-2021 10:30-0400Diastolic blood gpowmvno29 mm[Hg] Racheal Daniels Other [employer] Other 09-30-2021 10:30-0400Systolic blood stzfowcl314 mm[Hg] Racheal Daniels Other [employer] Other Encounters Encounter DateEncounter TypeCare ProviderFacilityStart: 03-16-7325stfldpotpg Vika X OrzechFacility:[place]Start: 03-06-2025 End: 27-05-0324TlnaumQyvd Naderer MD Work Phone: [facility] FMComment on above: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)Start: 01-31-2025 End: 23-55-3960Nvdsjptxv Result EncounterGeneric External Data ProviderNOMS External Department UnsolicitedStart: 01-31-2025 End: 47-19-7189Iasisaxhs Result EncounterGeneric External Data ProviderNOMS External Department UnsolicitedStart: 01-31-2025 End: 19-30-0317asgdoauhdcAFDKP J MATHEWSMercy Astoria HospitalStart: 01-31-2025 End: 57-89-8708Jywwiemtlw hospital visit by physicianMwh Additional X[facility] At [facility] Jacob RadiologyComment on above:Aftercare following left knee joint replacement surgeryStart: 01-13-2025 End: 53-11-0834Uqkfvwgri Result EncounterTulio Ruggiero MD Work Phone: noms External Department UnsolicitedStart: 01-13-2025 End: 78-68-1372Opebfvyis Result EncounterTulio Ruggiero MD Work Phone: n[facility] External Department UnsolicitedStart: 01-12-2025 End: 31-53-1917Nfumoz flowsAracely Ruggiero MD Work Phone: [facility] CWM FMStart: 01-12-2025 End: 14-43-8345Bhhfda flowsAracely Ruggiero MD Work Phone: [facility] CWM FMStart: 01-12-2025 End: 42-23-7804Rqpked outpatient visit 25 minutesTulio Ruggiero MD Work [...] index (BMI) of37.0 to 37.9 in adult ([facility]); Type 2 diabetes mellitus with diabetic chronic kidney disease (HCC); Chronic kidney disease, stage 3a ([facility]-HCC)Start: 01-12-2025 End: 80-66-7062mhasewpzjeVEUT NADERERNot AvailableStart: 12-31-2024 End: 43-28-1778Apnjztwml Result EncounterGeneric External Data ProviderNOMS External Department UnsolicitedStart: 12-31-2024 End: 41-45-6455Lrzracgzh Result EncounterGeneric External Data ProviderNOMS External Department UnsolicitedStart: 12-06-2024 End: 31-44-8655DlhwseJhtm Naderer MD Work Phone: [facility] CWM FMComment on above:Polyneuropathy due to type 2 diabetes mellitus ([facility])Start: 11-08-2024 End: 54-03-6375StkcpvXacw Naderer MD Work Phone: [facility] C[facility] FMComment on above:Male hypogonadismStart: 10-19-2024 End: 97-35-1852Uozwvi Radha Ruggiero MD Work Phone: [facility] CWM FMComment on above:Annual physical exam (Primary Dx); Morbid obesity ([facility]); Polyneuropathy due to type 2 diabetes mellitus ([facility]); Type 2 diabetes mellitus with hyperglycemia, without long-term current use of insulin ([facility]); Arthritis, goutyStart: 10-19-2024 End: 04-10-2874Blsasbx encounter procedureTulio Ruggiero MD Work Phone: [facility] Work Phone: Start: 10-13-2024 End: 03-56-1426Ubgope flowsAracely Ruggiero MD Work Phone: [facility] CWM FMStart: 10-13-2024 End: 93-96-6840Utmhsz Thomas Ruggiero MD Work Phone: [facility] C[facility] FMStart: 10-13-2024 End: 36-48-8321Votilk outpatient visit 15 minutesTulio Ruggiero MD Work Phone: [facility] CWM FMComment on above:Abscess of abdominal wall (Primary Dx)Start: 10-13-2024 End: 43-37-5480jrpfteurlcGHQC NADERERNot AvailableStart: 10-04-2024 End: 92-14-5620Fftttuflz Result EncounterGeneric External Data ProviderNOMS External Department UnsolicitedStart: 10-04-2024 End: 29-23-5974Cgqdfisbq Result EncounterGeneric External Data ProviderNOMS External Department UnsolicitedStart: 09-06-2024 End: 29-21-2648Geyjoflni Result EncounterGeneric External Data ProviderNOMS External Department UnsolicitedStart: 09-06-2024 End: 71-75-4138Evffzbvkt Result EncounterGeneric External Data ProviderNOMS External Department UnsolicitedStart: 08-24-2024 End: 96-30-3202Wzezbassw Result EncounterGeneric External Data ProviderNOMS External Department UnsolicitedStart: 08-24-2024 End: 50-24-7236Foqgzjnis Result EncounterGeneric External Data ProviderNOMS External Department UnsolicitedStart: 08-23-2024 End: 03-72-6868Ynzffascb Result EncounterGeneric External Data ProviderNOMS External Department UnsolicitedStart: 08-23-2024 End: 10-57-0286Fzxobtfvl Result EncounterGeneric External Data ProviderNOMS External Department UnsolicitedStart: 08-19-2024 End: 87-61-5527Ibnrqyulc Result EncounterGeneric External Data ProviderNOMS External Department UnsolicitedStart: 08-19-2024 End: 42-49-6382Knlktegwh Result EncounterGeneric External Data ProviderNOMS External Department UnsolicitedStart: 08-07-2024 End: 68-18-8159CjvfjqIhsh Naderer MD Work Phone: [facility] FMComment on above:Morbid obesity (CMS/HCC); 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/[facility]); Type 2 diabetes mellitus with hyperglycemia, without long-term current use of insulin (CMS/HCC)Start: 08-05-2024 End: 61-01-3688Cpothaifu Result EncounterGeneric External Data ProviderNOMS External Department UnsolicitedStart: 08-05-2024 End: 43-72-6462Mfcurvvvq Result EncounterGeneric External Data ProviderNOMS External Department UnsolicitedStart: 07-28-2024 End: 99-14-0763Fpqgwk Radha Ruggiero MD Work Phone: [facility] FMComment on above:Type 2 diabetes mellitus with hyperglycemia, without long-term current use of insulin (CMS/HCC) (Primary Dx); Dyslipidemia (CMS/HCC); Class 2 severe obesity due to excess calories with serious comorbidity and body mass index (BMI) of37.0 to 37.9 in adult (CMS/HCC); Encounter for long-term current use of medication; Screening PSA (prostate specific antigen)Start: 07-26-2024 End: 27-79-5480krrxnpfxtlGvddxBlake Valencia DOFacility:[facility] Start: 07-23-2024 End: 52-73-6615ozxejabtmgMlgfe Jay Mathews DOFacility:[facility] Start: 07-20-2024 End: 68-52-2375Cpmmgbphs Result EncounterGeneric External Data ProviderNOMS External Department UnsolicitedStart: 07-20-2024 End: 69-99-9051Vyfeljess Result EncounterGeneric External Data ProviderNOMS External Department UnsolicitedStart: 07-15-2024 End: 36-44-9605Enlpia flowsAracely Ruggiero MD Work Phone: [facility] CWM FMStart: 07-15-2024 End: 88-49-7046Usfqhn Thomas Ruggiero MD Work Phone: [facility] FMStart: 07-15-2024 End: 02-30-6642Eszmcol encounter procedureTulio Ruggiero MD Work Phone: [facility] Work Phone: Start: 07-15-2024 End: 58-52-7500Xznizvtn preventive med est patient 65yrs& olderTulio Ruggiero MD Work Phone: [facility] FMComment on above:Annual physical exam (Primary Dx); Encounter for preoperative assessment; Type 2 diabetes mellitus with hyperglycemia, without long-term current use of insulin ([facility]); Arthritis, gouty; Polyneuropathy due to type 2 diabetes mellitus ([facility]); Class 2 severe obesity due to excess calories with serious comorbidity and body mass index (BMI) of37.0 to 37.9 in adult ([facility]); Dyslipidemia ([facility]/HCC)Start: 07-15-2024 End: 22-69-2200Mdnvnlsdkrjh Sal Ruggiero MD Work Phone: noms HealthcareStart: 07-15-2024 End: 74-30-6626iffuzeagcxZMCD NADERERNot AvailableStart: 06-28-2024 End: 18-01-0902Hhpgpbgyh Result EncounterGeneric External Data ProviderNOMS External Department UnsolicitedStart: 06-28-2024 End: 63-40-6798Dxssiaenq Result EncounterGeneric External Data ProviderNOMS External Department UnsolicitedStart: 06-23-2024 End: 17-64-5683Qgamghabw Result EncounterGeneric External Data ProviderNOMS External Department UnsolicitedStart: 06-23-2024 End: 62-61-8690Qbyohitbp Result EncounterGeneric External Data ProviderNOMS External Department UnsolicitedStart: 05-27-2024 End: 92-01-6558spzlpxcrktWYOLUPNS E PERRYFacility:[place]Start: 05-27-2024 End: 69-70-2118Vakblut encounter procedureJENNIFER E DAVID [facility] start: 05-18-2024 End: 57-05-0419Lukiskfon Result EncounterGeneric External Data ProviderNOMS External Department UnsolicitedStart: 05-18-2024 End: 71-23-7864Esbzbouza Result EncounterGeneric External Data ProviderNOMS External Department UnsolicitedStart: 04-08-2024 End: 64-96-2262QubizxTbdf Naderer MD Work Phone: [facility] CWM FMComment on above:Polyneuropathy due to type 2 diabetes mellitus ([facility])Start: 04-06-2024 End: 72-04-1786ImdenlXvfh Naderer MD Work Phone: [facility] CWM FMComment on above:Male hypogonadismStart: 02-12-2024 End: 12-11-6058Pnupnfrye Result EncounterGeneric External Data ProviderNOMS External Department UnsolicitedStart: 02-12-2024 End: 11-05-2369Ikxtuzwyi Result EncounterGeneric External Data ProviderNOMS External Department UnsolicitedStart: 11-04-2023 End: 98-73-0744Gkgarcf encounter procedureJENNIFER E DAVID [facility] start: 10-09-2023 End: 90-37-5732Artwwbgrn Result EncounterGeneric External Data ProviderNOMS External Department UnsolicitedStart: 10-09-2023 End: 32-03-6643Tpeniqhvy Result EncounterGeneric External Data ProviderNOMS External Department UnsolicitedStart: 28-98-3235Wtgbdii encounter procedureTulio Ruggiero MD Work Phone: NOMS HealthcareStart: 07-05-2023 End: 15-18-7014Xfhglwovz Result EncounterGeneric External Data ProviderNOMS External Department UnsolicitedStart: 07-05-2023 End: 41-13-0410Eyjwlment Result EncounterGeneric External Data ProviderNOMS External Department UnsolicitedStart: 07-02-2023 End: 97-31-8098Kwzmuitdv Result EncounterGeneric External Data ProviderNOMS External Department UnsolicitedStart: 07-02-2023 End: 36-76-6978Ynrxtgxjy Result EncounterGeneric External Data ProviderNOMS External Department UnsolicitedStart: 06-03-2023 End: 95-39-4975Wnnmzsp encounter procedureJENNIFER E DAVID [facility] start: 12-05-2022 End: 44-59-4610pzhxpctcnuRC KIM E KNIGHT .Facility:W6Orbez: 12-03-2022 End: 58-96-9367opkjrdtvqwYJ KIM E KNIGHT .Facility:P3Valbr: 11-29-2022 End: 60-43-1019ayxxiqzbmtNWRYZAMXSSDR LAKSHMIPATHY .Facility:J0Bgmxd: 11-12-2022 End: 48-00-4548pgkbtufqmsGX KIM E KNIGHT .Facility:O1Pmdww: 11-05-2022 End: 41-27-1449ncgorvhvroKR KIM E KNIGHT .Facility:Y9Zkvny: 10-28-2022 End: 34-17-0542dfaqdajabwZG KIM E KNIGHT .Facility:C6Fsmda: 10-21-2022 End: 74-57-0284velvknpkpzBA KIM E KNIGHT .Facility:B3Cnmtj: 11-91-6502Zmbzsbauh for preprocedural cardiovascular examinationPETER D [facility] Hospitaltart: 51-66-6772Wsgxgpcta for preprocedural laboratory examinationPETER D [facility] Hospitaltart: 91-92-7558rfvvbwzlebFZ KIM E KNIGHT . Facility:Z2Igbte: 10-10-2022 End: 62-89-5084uznxjdwkcxYR KIM E KNIGHT .Facility:N6Boolb: 10-10-2022 End: 11-97-2963Lcqdsufnp for preprocedural cardiovascular examinationDR FELISA BERRIOS .Facility:D0Djmqz: 09-24-2022 End: 59-69-5870hxsamsnligTV KIM E KNIGHT .Facility:O6Fpvxl: 09-20-2022 End: 44-81-7158egzfxgwlbaEB KIM E KNIGHT .Facility:L9Xpfoi: 09-10-2022 End: 54-27-9059vhjhmpuvpuFZ KIM E KNIGHT .Facility:J7Vmidk: 08-26-2022 End: 78-17-5047gceuyamwosUO KIM E KNIGHT .Facility:P2Mnlqx: 08-06-2022 End: 95-78-2555zskzsdhajnTWHAL D [facility] Centercility:V5Ftnvf: 07-31-2022 End: 06-55-0571zqltwrqomkUUZAZHAOhioHealth Dublin Methodist Hospitaltart: 07-31-2022 End: 44-20-7192zxnyfnsfsjWS NATHALY BOONE .Facility:M1Sanqm: 07-25-2022 End: 03-39-9528szrdgpsxpoEZSL SOLIS .Facility:H8Ycaoz: 07-24-2022 End: 42-31-8879fjdzfaqfhjEEMGB D [facility] Centercility:A8Utmzw: 07-23-2022 End: 07-76-5389meqivdadkiBG KIM E KNIGHT .Facility:D0Qsulw: 07-22-2022 End: 31-45-6580ticqlnyuwmRA KIM E KNIGHT .Facility:S8Eihue: 36-69-3749hxqmixbfgc DR NATHALY BOONE .Facility:E8Oznee: 06-28-2022 End: 68-14-4123iqmuwofpdiSB EHAB ELTAHAWYFacility:C7Hnqan: 06-10-2022 End: 69-95-8899mmwfjdephvQL FELISA BERRIOS .Facility:E8Lyfyf: 05-27-2022 End: 31-31-3294mtlrmursbrCG RACHEAL Ayala WESTFacility:P9Bgtyq: 05-23-2022 End: 51-36-9591fkdfnjwiooSclhnq Olex[employer] Other [employer] Other Start: 59-13-6178Fhpmwx outpatient visit 15 minutes Alejandra CainFPG [facility] OrthopedicsStart: 05-03-2022 End: 08-65-6933rnzddfevliSB FELISA BERRIOS .Facility:U4Opkaa: 04-23-2022 End: 49-18-2104jxjnardzvaAT NATHALY BOONE .Facility:N3Zvozn: 04-08-2022 End: 61-95-4997nrgskkkjmoIN RACHEAL Ayala WESTFacility:P1Dcyyo: 04-04-2022 End: 21-48-1454xzhfrdxhtgXDXL ALEX .Facility:Z5Gtzpr: 04-03-2022 End: 75-29-6784lrfdzdyoopBA RACHEAL Ayala WESTFacility:A7Xihce: 03-25-2022 End: 51-77-4901arsblyogxtRU RACHEAL V WESTFacility:U7Fynym: 03-19-2022 End: 23-87-6414xyjepxzjblID RACHEAL V WESTFacility:K9Cjbmx: 02-18-2022 End: 13-55-3447scvvurfbioCV RACHEAL Ayala WESTFacility:N7Savkq: 54-76-6441bfsflyyanzKP FELISA BERIROS .Facility:K8Fcrpu: 02-14-2022 End: 05-38-8703wlzpjkzphgVU FELISA BERRIOS .Facility:X0Mqqij: 02-13-2022 End: 33-01-5740whoptopgleXJ FELISA BERRIOS .Facility:M1Nchcb: 02-06-2022 End: 46-80-6292phpymijbjjDZ FELISA BERRIOS .Facility:A8Irewf: 02-05-2022 End: 27-46-2841riiagiyukvPS FELISA BERRIOS .Facility:D5Jihlq: 01-30-2022 End: 11-30-2248candlfrzwiXY FELISA Ann BERRIOS .Facility:J6Hmwng: 01-22-2022 End: 12-37-2236nxbejmkoqyXN FELISA Ann BERRIOS .Facility:L0Vdlef: 01-21-2022 End: 08-70-9861xrqbxowtmlSO KIM Ann BERRIOS .Facility:J0Ghohn: 01-08-2022 End: 68-21-9567zzhoxpqfcbMP KIM Ann BERRIOS .Facility:F0Jcyuw: 08-07-2021 End: 14-53-7484lwuqscvfgxYraovd [employer]lex[employer] Other [employer] Other Start: 40-33-4872Pwkqxe outpatient visit 15 minutes Alejandra OlexaFPG [facility] BellevueStart: 67-36-4047Bjphuj outpatient visit 15 minutesDavid HykesFPG Gastroenterology Procedures DateProcedureProcedure DetailPerforming ClinicianStart: 25-47-7351FI KNEE LEFT (3 VIEWS)Generic External Data ProviderStart: 77-31-7649Eqfwcmzcjh examination knee 3 viewsDaniele Valencia DO Work Phone: Start: 65-60-4566RTB MICROALB CREAT RATIO RANDOMMarmilan Ruggiero MD Work Phone: Start: 85-38-2451JLJF PSA, DIAGNOSTICGeneric External Data ProviderStart: 63-01-9310Jxjniyqzaq examination knee 1/2 viewsGeneric External Data ProviderStart: 78-82-4889Cbcmmenxqn examination knee 1/2 views Generic External Data ProviderStart: 16-23-2369TLA BASIC METABOLIC PANELGeneric External Data ProviderStart: 58-52-4070Zzmkwctnkk exam knee complete 4/more viewsGeneric External Data ProviderStart: 35-53-8771ROI CBC WITH AUTO DIFF Generic External Data ProviderStart: 49-22-0614Yaetwxmt screenGeneric Provider Start: 58-83-8004DWJ TYPE AND SCREENGeneric External Data ProviderStart: 18-35-6416Gxpmsqbq screenGeneric ProviderStart: 83-02-5355HSA TYPE AND SCREEN Generic External Data ProviderStart: 00-51-0960TV CHEST 2VGeneric External Data ProviderStart: 97-90-3436LSX MISCELLANEOUS TESTGeneric External Data Provider Start: 87-11-0228DVH UA (CLEAN/CATCH) HEALTH EDUCATION AIDE/MICRO IF IND.Generic External Data ProviderStart: 69-40-6619PLC CBC WITH AUTO DIFFGeneric External Data Provider Start: 07-20-2024 End: 09-87-0707QGU 12-LEADGeneric External Data ProviderStart: 92-00-8730NDOR SCREENING CULTUREGeneric External Data ProviderStart: 79-68-3466SM ECHO DOPPLER COMPLETEGeneric External Data ProviderStart: 06-46-5255Ouzpomthih exam knee complete 4/more viewsGeneric External Data ProviderStart: 62-70-6416NK ABDOMEN 1VGeneric External Data ProviderStart: 20-81-9977ZL FOOT LT MIN 3VGeneric External Data ProviderStart: 38-21-9646GG FOOT LT MIN 3VGeneric External Data ProviderStart: 14-26-7068KW FOOT LT WO CONGeneric External Data ProviderStart: 96-58-3096HQ FOOT LT MIN 3VGeneric External Data ProviderStart: 25-19-8630HNG screeningDR RACHEAL Monk on above:Performed By: #### PSAD #### [facility] [address] [place] [address] Dr. Juliet Guidoart: 50-89-6089KH guided biopsyJENNIFER DAVID Comment on above:LIVER. NO SEDATION.Start: 07-15-2016 ColonoscopyTulio Ruggiero MD Work Phone: Arthroscopy of kneeJENNIFER DAVID Bilateral cataracts (disorder)LIZ DAVID H/O: vasectomyJENNIFER DAVID Titanium (substance)LIZ DAVID Comment on above:ToeTonsillectomyJENNIFER DAVID Plan of Treatment DateCare ActivityDetailAuthorStart: 20-26-7520Mvoeejafknn Syncytial Virus (RSV) or age 60 yrs+ (1 - 1-dose 75+ series)Respiratory Syncytial Virus (RSV) or age 60 yrs+ (1 - 1-dose 75+ series)[facility] HealthStart: 58-62-6377Ggmxzjnza for malignant neoplasm of colonNOWI HealthcareStart: 38-70-3910Exxhi screening for proteinDiabetes: Urine Protein ScreeningNOWI HealthcareStart: 08-16-2025 End: 35-28-8672Aqxftxs encounter ommivoeox48/03/2026 9:00 AM EST Office Visit [facility] [address] [place] [id number] Tulio Rgugiero MD [address] [place] [id number] [facility] FMStart: 89-33-2575Lrwadmuny vaccinationInfluenza Vaccine (#1)[facility] HealthcareStart: 59-78-2165Izqotsif screeningDiabetes: Retinopathy Screening [facility] HealthcareStart: 39-48-3062Xyglussts vaccinationFlu vaccine (#1)[facility] HealthStart: 46-85-8613Zqzlc screening for proteinDiabetes: Urine Protein ScreeningSaint John's Saint Francis HospitalStart: 01-12-2025 End: 62-98-8727Ygznjersfb A1c/Hemoglobin.total in BloodHemoglobin A1c Lab Routine Type 2 diabetes mellitus with hyperglycemia, without long-term current use of insulin (HCC) Expected: 01/12/2025 (Approximate), Expires: 01/12/2026[facility] HealthcareComment on above:Expected: 01/12/2025 (Approximate), Expires: 01/12/2026Start: 01-12-2025 End: 63-89-9218Whlfchbtckgi/Creatinine panel in random UrineMicroalbumin / creatinine, urine ratio Lab Routine Type 2 diabetes mellitus with hyperglycemia, without long-term current use of insulin (HCC) Expected: 01/12/2025 (Approximate), Expires: 01/12/2026[facility] Work Phone: Comment on above:Expected: 01/12/2025 (Approximate), Expires: 01/12/2026Start: 01-12-2025 End: 97-58-0399Ssvqpor encounter procedureNO [facility] FMComment on above:Arrived Start: 10-19-2024 End: 23-03-8016Fovkths antibody IgGRubeola antibody IgG Lab Routine Annual physical exam Expected: 10/19/2024 (Approximate), Expires: 10/19/2025[facility] Work Phone: Comment on above:Expected: 10/19/2024 (Approximate), Expires: 10/19/2025Start: 10-13-2024 End: 20-12-1003Mnoaiph encounter sevnqpilb03/02/2025 1:15 PM EDT Office Visit [facility] [address] [place] [id number] Tulio Ruggiero MD [address] [address] [facility]NO[facility] FMComment on above:ArrivedStart: 70-39-9952QVUVZ-19 Vaccine ( season)COVID-19 Vaccine ( season)[facility]: 08-05[facility]2024 End: 30-79-9326Qyozc metabolic 1998 panel - Serum or PlasmaBasic metabolic panel Lab Routine Encounter for long-term current use of medication Expected: 2024 (Approximate), Expires: 08/05/2025[facility] HealthcareComment on above:Expected: 08/05/2024 (Approximate), Expires: 08/05/2025Start: 08-05-2024 End: 01-26-7725XMN W Auto Differential panel - BloodCBC and differential Lab Routine Encounter for long-term current use of medication Expected: 08/05/2024 (Approximate), Expires: 08/05/2025NOW[facility] HealthcareComment on above:Expected: 08/05/2024 (Approximate), Expires: 08/05/2025Start: 08-05-2024 End: 52-22-9704Fbgaizofhk A1c/Hemoglobin.total in BloodHemoglobin A1c Lab Routine Type 2 diabetes mellitus with hyperglycemia, without long-term current use of insulin ([facility]) Expected: 08/05/2024 (Approximate), Expires: 08/05/2025 [facility] Work Phone: Comment on above:Expected: 08/05/2024 (Approximate), Expires: 08/05/2025Start: 08-05-2024 End: 53-58-7051Nalefqv function 2000 panel - Serum or PlasmaHepatic function panel Lab Routine Encounter for long-term current use of medication Expected: 08/05/2024 (Approximate), Expires: 08/05/2025[facility] HealthcareComment on above: Expected: 08/05/2024 (Approximate), Expires: 08/05/2025Start: 08-05-2024 End: 10-52-2574Gdvor 1996 panel - Serum or PlasmaLipid panel Lab Routine Dyslipidemia ([facility]) Expected: 08/05/2024 (Approximate), Expires: 08/05/2025 [facility] HealthcareComment on above:Expected: 08/05/2024 (Approximate), Expires: 08/05/2025Start: 08-05-2024 End: 92-93-0410Nkhukfmv specific Ag [Mass/volume] in Serum or PlasmaPSA Lab Routine Screening PSA (prostate specific antigen) Expected: 08/05/2024 (Approximate), Expires: 08/05/2025[facility] HealthcareComment on above:Expected: 08/05/2024 (Approximate), Expires: 08/05/2025Start: 08-05-2024 End: 23-13-4650Jisazvlwcfp [Units/volume] in Serum or PlasmaTSH Lab Routine Class 2 severe obesity due to excess calories with serious comorbidity and body mass index (BMI) of 37.0 to 37.9 in adult ([facility]) Expected: 08/05/2024 (Approximate), Expires: 08/05/2025[facility] HealthcareComment on above:Expected: 08/05/2024 (Approximate), Expires: 08/05/2025Start: 67-81-3147Gttpuhmnnq A1c measurementDiabetes: Hemoglobin Z8VZSWF HealthcareStart: 07-15-2024 End: 87-24-6018Jeccs metabolic 1998 panel - Serum or PlasmaBasic metabolic panel Lab Routine Annual physical exam Expected: 07/15/2024 (Approximate), Expires: 07/15/2025[facility] HealthcareComment on above:Expected: 07/15/2024 (Approximate), Expires: 07/15/2025Start: 07-15-2024 End: 32-61-1780BKH W Auto Differential panel - BloodCBC and differential Lab Routine Annual physical exam Expected: 07/15/2024 (Approximate), Expires: 0 07/15/2025[facility] HealthcareComment on above:Expected: 07/15/2024 (Approximate), Expires: 07/15/2025Start: 07-15-2024 End: 39-48-2201Udpmjwzmwf A1c/Hemoglobin.total in BloodHemoglobin A1c Lab Routine Annual physical exam Expected: 07/15/2024 (Approximate), Expires: 07/15/2025[facility] Work Phone: Comment on above:Expected: 07/15/2024 (Approximate), Expires: 07/15/2025Start: 07-15-2024 End: 08-07-0546Zgjtyqm function 2000 panel - Serum or PlasmaHepatic function panel Lab Routine Annual physical exam Expected: 07/15/2024 (Approximate), Expires: 07/15/2025[facility] HealthcareComment on above:Expected: 07/15/2024 (Approximate), Expires: 07/15/2025Start: 07-15-2024 End: 17-90-2157Rhnln 1996 panel - Serum or PlasmaLipid panel Lab Routine Annual physical exam Expected: 07/15/2024 (Approximate), Expires: 07/15/2025[facility] HealthcareComment on above:Expected: 07/15/2024 (Approximate), Expires: 07/15/2025Start: 07-15-2024 End: 34-62-8206Lknlwzob specific Ag [Mass/volume] in Serum or PlasmaPSA Lab Routine Annual physical exam Expected: 07/15/2024 (Approximate), Expires: 07/15/2025[facility] HealthcareComment on above:Expected: 07/15/2024 (Approximate), Expires: 07/15/2025Start: 07-15-2024 End: 03-17-4852Pfwkhtwsbkb [Units/volume] in Serum or PlasmaTSH Lab Routine Annual physical exam Expected: 07/15/2024 (Approximate), Expires: 07/15/2025[facility] HealthcareComment on above:Expected: 07/15/2024 (Approximate), Expires: 07/15/2025Start: 07-15-2024 End: 11-43-3234Gspcwqt encounter procedureNOMS CWM FMComment on above:Arrived Start: 84-43-9698Xzaptlrzd vaccinationInfluenza Vaccine (#1)[facility] Start: 93-25-3939Rgyneawxyb A1c measurementDiabetes: Hemoglobin S0RVWHQ HealthcareStart: 81-35-7884Owxpinzeecpm 50+ years Vaccine (2 of 2 - PCV) Pneumococcal 50+ years Vaccine (2 of 2 - PCV)[facility] HealthStart: 09-44-8155Xcxssmxemdkh Vaccine: 65+ Years (2 of 2 - PCV)Pneumococcal Vaccine: 65+ Years (2 of 2 - PCV)[facility] HealthcareStart: 19-86-8327Ajoocnzz vaccine (1 of 2)Shingles vaccine (1 of 2)[facility] HealthStart: 65-45-3691Mpphsiumb for malignant neoplasm of colonCentra HealthStart: 73-76-5949Wtgms panelLipidsCentra HealthStart: 57-05-0717SFaG/Tdap/Td vaccine (1 - Tdap)DTaP/Tdap/Td vaccine (1 - Tdap)[facility] HealthStart: 1975 Urine screening for proteinDiabetes: Urine Protein ScreeningSaint John's Saint Francis Hospital Start: 46-55-8320Aifuamibg C screeningHepatitis C screenCentra Health Start: 41-02-0266Nmjxsktgpu ScreenDepression [facility] Start: 40-62-4584Gmqsjoxpl for malignant neoplasm of colonSHRINERS HOS[facility]ALS FOR [facility] Healthcare Immunizations Immunization DateImmunizationNotesCare PuxzezlvFrnrzodo25-51-4969pvjgexqrd virus vaccine, unspecified formulationJENNIFER DAVID [facility]10-08-2023SARS-CoV-2 mRNA (tozinameran 5y-11y) vaccineJENNIFER DAVID 511-2709Mekegx-AmvmwTrinity Health [facility] on above: Result Comment: covid 19 mRNA (cvs)75-86-5340dyphnkbhw virus vaccine, unspecified formulationTulio Ruggiero MD Work Phone: [facility] HospitalSvsamkvnnk90-83-8214tdmqijzbn virus vaccine, unspecified formulationJENNIFER DAVID [facility]09-10-2022SARS-CoV-2 (COVID-19) mRNAMUL.ORD![id number] DAVID [facility]04-12-2022SARS-CoV-2 mRNA (fbmkscxxilw-qoqx-uruikrv) vaccineJENNIFER DAVID [facility]11-14-2021pneumococcal polysaccharide vaccine, 23 valentJENNIFER DAVID [facility]10-24-2021SARS-CoV-2 (COVID-19) mRNA BNT-162b2 vaxJENNIFER DAVID [facility] on above:Result Comment: 2022-05-29: LBQ5634-29-4104xjdgdfrxb virus vaccine, unspecified formulationJENNIFER DAVID [facility]03-08-2021SARS-CoV-2 (COVID-19) mRNA BNT-162b2 vaxJENNIFER ADVID General Surgery Uexmamce84-23-8213gonhpwpkb virus vaccine, unspecified formulationJENNIFER DAVID General Surgery Epoialec39-25-1521hmdcwgqzp virus vaccine, unspecified formulationJENNIFER DAVID [facility]10-08-2018influenza virus vaccine, unspecified formulationJENNIFER DAVID [facility]09-11-2018influenza virus vaccine, unspecified formulationJENNIFER DAVID [facility]10-19-2013influenza virus vaccine, unspecified formulationJENNIFER DAVID [facility] Payers DatePayer CategoryPayerPolicy [id number] [id number] 2023Medicare2023 [id number] [id number] [id number] 2.16.840.1.740045.19 [id number] [id number] 2.16.840.1.113602.3.57[id number] 2.16.840.1.113485.3.579.2.33089-08-8338Tfsyivv2886586 2.16.840.1.242498.3.579.[id number] 2.16.840.1.470999.3.579.2.60098-09-5476Ducjwhw0868196 2.16.840.1.404768.3.579.2.67139-78-9262Feqphda5196199 2.16.840.1.767678.3.579.2.12798-66-1928Mqmcsbw2352065 2.16.840.1.383697.3.579.2.88698-23-0263Qtdxmtm5533927 2.16.840.1.754088.3.579.2.04607-22-1058Buczkef2085152 2.16.840.1.832411.3.579.2.69644-84-4592Gukfmmt2333937 2.16.840.1.556110.3.579.2.04739-22-6061Zeyknju6443767 2.16.840.1.259230.3.579.2.82171-14-9938Lnwldzg7819589 2.16.840.1.127298.3.579.2.07081-66-4290Gnzkrac8136404 2.16.840.1.866420.3.579.2.43687-29-0357Qnimqju2226124 2.16.840.1.175297.3.579.2.51911-69-0368Ujoqpib8166275 2.16.840.1.401234.3.579.2.24947-38-1975Ljopaor0921955 2.16.840.1.008491.3.579.2.16798-90-6010Byqeprz4078619 2.16.840.1.140311.3.579.2.95005-29-9862Pdhodun4923440 2.16.840.1.071690.3.579.2.55443-54-9080Zdtqtfb5356550 2.16.840.1.451189.3.579.2.78719-45-2098Dogbajn6182216 2.16.840.1.221547.3.579.2.44872-16-5743Kfsvcyb4405793 2.16.840.1.054223.3.579.2.40140-57-0679Kqiqlcb9557561 2.16.840.1.444847.3.579.2.29702-05-9927Gjidevn5379354 2.16.840.1.016402.3.579.2.90322-00-4233Dxasghs5423313 2.16.840.1.629622.3.579.2.03869-22-8144Fvioemj5009599 2.16.840.1.388690.3.579.2.17198-91-0428Darlqas6913596 2.16.840.1.761805.3.579.2.80149-81-2401Vzpiejb1068436 2.16.840.1.711786.3.579.2.23284-65-8389Cltumzj6038202 2.16.840.1.889963.3.579.2.46538-84-3932Dwianhq4091513 2.16.840.1.716030.3.579.2.51222-55-0621Iinljdw0253890 2.16.840.1.510193.3.579.2.24661-32-9306Lpiismu1526969 2.16.840.1.216186.3.579.2.97100-77-7878Mrmllef4880034 2.16.840.1.428691.3.579.2.77770-85-1069Qoexpjx6189820 2.16.840.1.095350.3.579.2.98330-20-4158Warvfqo5668879 2.16.840.1.097018.3.579.2.39188-88-5468Vupktwu1859628 2.16.840.1.122326.3.579.2.85823-20-0306Vcbhklb0205503 2.16.840.1.026985.3.579.2.34721-33-0766Eltobmr6840035 2.16.840.1.391737.3.579.2.26869-71-1622Xpctkrh7479615 2.16.840.1.623439.3.579.2.27827-93-6750Luoibnp8600356 2.16.840.1.216788.3.579.2.34409-67-5159Vctbpzz4919449 2.16.840.1.022368.3.579.2.44066-24-8398Kmedcwd349359160 2.16.840.1.509978.3.579.2.84222-68-7618Fcmhtye982213642 2.16.840.1.476720.3.579.2.64794-56-2665Bgmolnx27085978 2.16.840.1.934980.3.579.2.030002-11-9398Ipkqhfp8032043 2.16.840.1.285997.3.579.2.658427-70-4868Iynloby7153824 2.16.840.1.863112.3.579.2.212627-74-4986Jchqfod05326468 2.16.840.1.350381.3.579.2.93147-25-3002Lobtxny11750185 2.16.840.1.464454.3.579.2.95471-60-9552Leodzsf32123441 2.16.840.1.383248.3.579.2.727 Social History DateTypeDetailFacilityStart: 01-12-2024 End: 42-46-4146Uzr [facility] Hospitaltart: 03-10-2023 End: 30-15-3305Jubyzxi smoking statusNever smoked tobacco (finding)[facility] Hospitaltart: 28-85-1912Xjpakpr smoking statusNeverExecutive Urology [facility] Medical Centertart: 45-90-7909Dtpolgd use and exposureSmokeless tobacco non-userNOMS Healthcare Start: 01-12-2024 End: 48-75-3604Fzwqeob of Social functionNOMS HealthcareStart: 48-97-2273Hoq assigned at [facility]Not on [facility] HealthcareTobacco smoking status NHISTobacco smoking consumption unknownCentra HealthStart: 51-36-3001WhvAlni (finding)[facility] Functional Status LzfsQhlpblmkmsTilmspKydkmuhl59-42-2973Pnirooidvz StatusN/AExec[facility]04-23-2024Functional StatusN/A[facility]11-21-2023Functional StatusN/A [facility] Clinical Notes 04-12-2021 to 01-12-2025 Note Date & RunpCklrPiuyzyvg08-04-1809 History of Present illness Narrative* Tulio Ruggiero MD - 01/12/2025 9:44 AM EDTAssociated Problem(s): Type 2 diabetes mellitus with hyperglycemia, without long-term current use of insulin ([facility]) Reports BS controlled and due for A1C. [...] (BMI) of 37.0 to 37.9 in adult ([facility]) Weight loss indicated. * Tulio Ruggiero MD [...] index (BMI) of37.0 to 37.9 in adult ([facility]) Weight loss indicated. Type 2 diabetes mellitus with hyperglycemia, without long-term current use of insulin ([facility]) - Primary Reports BS controlled and due for A1C. Stick to ADA diet and limit carbs. Relevant Orders Microalbumin / creatinine, urine ratio Hemoglobin A1c Seasonal allergic rhinitis due to pollen Symptoms controlled with medication and continue. Primary insomnia Sleeping well with medication and continue. documented in this encounterSaint John's Saint Francis HospitalFminofhryg27-30-4878 History of Present illness Narrative* Tulio Ruggiero [...] per tablet documented in this encounterSaint John's Saint Francis HospitalZmysihlkzm65-31-2708 NoteProcedure: AP view of the orbits. Clinical [...] Is Signed, Electronically Signed in Other Vendor System)[facility]01-02-2025 History of Present illness Narrative* Tulio Ruggiero MD - 07/15/2024 9:51 AM ESTAssociated Problem(s): Dyslipidemia (CMS/HCC) Due for labs. * Tulio Ruggiero MD - 07/15/2024 9:50 AM ESTAssociated Problem(s): Class 2 severe obesity due to excess calories with serious comorbidity and body mass index (BMI) of 37.0 to 37.9 in adult ([facility]) Weight down 9 pounds in past year. Continue exercise and diet changes. * Tulio Ruggiero MD - 07/15/2024 9:49 AM ESTAssociated Problem(s): Polyneuropathy due to type 2 diabetes mellitus ([facility]) Neuropathy stable and continue neurontin. * Tuilo Ruggiero MD - 07/15/2024 9:48 AM ESTAssociated Problem(s): Type 2 diabetes mellitus with hyperglycemia, without long-term current use of insulin ([facility]) Reports BS controlled and due for A1C. [...] index (BMI) of37.0 to 37.9 in adult ([facility]) Weight down 9 pounds in past year. Continue exercise and diet changes. Type 2 diabetes mellitus with hyperglycemia, without long-term current use of insulin ([facility]) Reports BS controlled and due for A1C. Stick to ADA diet and limit carbs. Polyneuropathy due to type 2 diabetes mellitus ([facility]) Neuropathy stable and continue neurontin. Annual physical [...] routine PAT. documented in this encounterSaint John's Saint Francis HospitalXapuwamacw52-87-2975 Hospital Discharge instructions Patient Education 05/27/2024 09:56:36 Kidney Stones, Gplx-hh-Twfk Kidney Stones Kidney stones are rock-like masses [...] Follow these instructions at home: Medicines Take wowf-tsj-whvqlgk and prescription medicines only as told by [...] provider. Document Revised: 02/21/2023 Document Reviewed: 02/21/2023 [employer] Patient Education 2023 [employer]. Follow Up Care 11/04/2023 09:32:44 With:LIZ ABREU PA-C, URL Address: When:1 year [facility] 11-14-2024 NotePatient Education Urology Kidney Stones [...] these instructions at home: Medicines ??? Take ifeb-ohq-tgdltfy and prescription medicines only as told by [...] provider. Document Revised: 02/21/2023 Document Reviewed: 02/21/2023 [employer] Patient Education ? 2023 [employer].[facility] 11-04-2023 Hospital Discharge instructions Patient [...] Follow these instructions at home: Medicines Take ccbz-xef-bjfhnip and prescription medicines only as told by [...] provider. Document Revised: 09/26/2021 Document Reviewed: 09/26/2021 [employer] Patient Education 2022 [employer]. Follow Up Care 06/03/2023 10:28:55 With:LIZ ABREU PA-C, URL Address: [address] [facility] [place] [address] [phone] When: Unknown [facility] 11-21-2023 Hospital Discharge instructions Patient Education [...] treatment? Where to find more information [employer]: www.cancer.org [employer]: www.auanet.org Contact a health care [...] provider. Document Revised: 12/24/2021 Document Reviewed: 12/24/2021 [employer] Patient Education 2022 [employer]. Follow Up Care 05/29/2022 11:47:27 With:DAVID IVAN, LIZ Juarez, URL Address: [address] [place] [address] [phone] When: Unknown Comments:6 mos w/ PSA [facility] 05-23-2023 NotePROCEDURE: XR FOOT LT MIN [...] authenticated by: ELIN MCCARTNEY Date: 2022-12-03 09:57[facility] HospitalCfgyqpih05-32-6348 NotePROCEDURE: XR FOOT LT MIN 3 VIEWS [...] Electronically authenticated by: ZAFAR FERRER Date: 2022-11-12 13:59[facility]04-11-2023 NotePROCEDURE: XR FOOT LT MIN 3 [...] Electronically authenticated by: ELIN MCCARTNEY Date: 2022-10-22 07:48[facility]04-11-2023 NotePROCEDURE: XR FOOT LT 2V HISTORY: Pain COMPARISON: XR foot left 10/21/2022 FINDINGS: BONES:Multiple intraoperative spot fluoroscopic images demonstrate mechanical fusion of the first metatarsophalangeal joint and resection of head of first proximal phalanx. IMPRESSION: 1. Surgical changes of left first toe as detailed above. Electronically authenticated by: ELIN MCCARTNEY Date: 2022-10-22 07:46[facility]01-18-2023 NoteCurrently stableUnWayne Hospital01-18-2023 NoteHypertension is well controlled 114/64 Continue lisinopril 5 mg Recent CR elevated 1.59- his cr typically has been 1.2-1.4 - He has been on antibiotics for Lt foot infection- DFU with wound care. [facility]01-18-2023 NoteLipid abnormalities are currently well controlled with lipitor 20 mg- LDL currently 58.6 on labs 07/26/2022 Liver function 04/2022 were normalUnWayne Hospital01-18-2023 NoteUTP CARDIOLOGY PROGRESS NOTE HPI: Carlos [...] stable RTC 1 year or earlier if neededUnWayne Hospital01-18-2023 NotePatient here for 6 mo follow up history of PE and hyperlipidemia. Had labs in Apr and echo in Jun 2022. Patient denies chest pain, SOB, and increase in LE edema. Doing very well from cardiac standpoint. Was seeing Dr. Steele for his varicose veins. Review of Systems Cardiovascular: Positive for leg swelling. All other systems reviewed and are negative.[facility] 07-31-2022 NoteCONSULTATION PROCEDURE DATE: 07/31/2022 INDICATIONS: This [...] in the clinic in three months' time.[facility] HospitalRmuslcuv07-95-9425 Note CONSULTATION CONSULTATION DATE: 07/25/2022 HISTORY OF [...] a [place] vacation, where he visited multiple [employer] mayes and had a lot of increased [...] plan and will be contacted upon approval.[facility] HospitalRgobpuwj50-71-9530 NotePROCEDURE: XR FOOT LT MIN 3 VIEWS [...] authenticated by: ELIN MCCARTNEY Date: 2022-07-24 10:21[facility] HospitalGhmgzoap78-37-0123 NotePROCEDURE: XR KNEE LT 4V or > HISTORY: Pain in left knee ; chronic left knee pain COMPARISON: XR knee bilateral 05/31/2021 FINDINGS: BONES:Marked narrowing of the medial joint space with suspected sgrc-qs-rleh articulation. Moderate-marked narrowing of the lateral compartment. Mild narrowing of anterior compartment. Small periarticular osteophytes involving the margins of all 3 compartments. No fracture or dislocation. SOFT TISSUES:No visible soft tissue swelling. EFFUSION:Small joint effusion. OTHER: Negative. IMPRESSION: 1. Marked degenerative joint disease. Stable to minimally progressed. Electronically authenticated by: ELIN MCCARTNEY Date: 2022-06-10 19:35[facility] HospitalRqbijwtq10-21-1281 Evaluation note* Encounter Date Diagnosis Assessment Notes [...] May,ain in left knee (ICD-10 - M25.562) [facility] Other 10-11-2022 NoteCONSULTATION CONSULTATION DATE: 04/23/2022 CHIEF [...] the time being. CC: Felisa Berrios M.D.[facility] HospitalYenfobth22-45-6795 NoteCONSULTATION CONSULTATION DATE: 04/04/2022 HISTORY OF PRESENT [...] indicated. Patient agreed with plan of care.[facility] HospitalUzkgmmtu33-81-6701 Note CONSULTATION CONSULTATION DATE: 02/14/2022 HISTORY OF [...] time unless otherwise indicated. Patient acknowledges understanding.[facility] HospitalRkllqqgk98-61-8302 NoteCONSULTATION PROCEDURE DATE: 02/14/2022 PREOPERATIVE DIAGNOSIS: Bilateral [...] will be followed up in the office.[facility] HospitalDrpqqife62-81-3682 Evaluation note* Encounter Date Diagnosis Assessment Notes [...] Jul,ain in left knee (ICD-10 - M25.562) [facility] Other 09-30-2021 Evaluation note* Encounter Date Diagnosis Assessment Notes Treatment Notes Treatment Clinical Notes Mar, Liver hemangioma (ICD-10 - D18.0 3) Mar,NASH (nonalcoholic steatohepatitis) (ICD-10 - K75.81) [facility] Other Evaluation + Plan note Future Appointments Appointment Date:11/04/2023 08:30:00 AM Scheduled Provider:LIZ ABREU PA-C Location:[facility] Appointment Type:URO Office Visit Diagnostic Tests Pending * PSA Total 06/03/23 [facility] evaluation + Plan note Future Appointments Appointment Date:05/25/2024 08:40:00 AM Scheduled Provider:LIZ ABREU PA-C Location:[facility] Appointment Type:URO Office Visit [facility] evaluation note* Diagnosis Polyneuropathy due to type 2 diabetes mellitus ([facility]) documented in this encounter [facility] HealthcareEvaluation note* Diagnosis Male hypogonadism Other testicular hypofunction documented in this encounter [facility] HealthcareEvaluation note* Diagnosis Annual physical exam- Primary Routine general medical examination at a [facility] care facility Type 2 diabetes mellitus with hyperglycemia, without long-term current use of insulin ([facility]) Type 2 diabetes mellitus with hyperglycemia, without long-term current use of insulin ([facility])- Primary Arthritis, gouty Gouty arthropathy, unspecified Seasonal [...] hyperglycemia, without long-term current use of insulin ([facility]) Arthritis, gouty Gouty arthropathy, unspecified 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) Class 2 severe obesity due to excess calories with serious comorbidity and body mass index (BMI) of37.0 to 37.9 in adult (CMS/[facility]) Dyslipidemia (CMS/[facility]) Other and unspecified hyperlipidemia documented in this encounter [facility] HealthcareEvaluation note* Diagnosis Annual physical exam- Primary Routine general medical examination at a health care facility Type 2 diabetes mellitus with hyperglycemia, without long-term current use of insulin ([facility]) Type 2 diabetes mellitus with hyperglycemia, without long-term current use of insulin ([facility])- Primary Arthritis, gouty Gouty arthropathy, unspecified Seasonal allergic rhinitis due to pollen DDD (degenerative disc disease), lumbar Degeneration of lumbar or lumbosacral intervertebral disc Polyneuropathy due to type 2 diabetes mellitus ([facility]) Primary insomnia Persistent disorder of initiating or maintaining sleep Annual physical exam- Primary Routine general medical examination at a health care facility Encounter for preoperative assessment Type 2 diabetes mellitus with hyperglycemia, without long-term current use of insulin ([facility]) Arthritis, gouty Gouty arthropathy, unspecified Polyneuropathy due to type 2 diabetes mellitus ([facility]) Class 2 severe obesity due to excess calories with serious comorbidity and body mass index (BMI) of37.0 to 37.9 in adult ([facility]) Dyslipidemia ([facility]) Other and unspecified hyperlipidemia Type 2 diabetes mellitus with hyperglycemia, without long-term current use of insulin ([facility])- Primary Dyslipidemia ([facility]) Other and unspecified hyperlipidemia Class 2 severe obesity due to excess calories with serious comorbidity and body mass index (BMI) of37.0 to 37.9 in adult ([facility]) Encounter for long-term current use of medication Screening PSA (prostate specific antigen) Special screening for malignant neoplasm of prostate documented in this encounter [facility] HealthcareEvaluation note* Diagnosis Annual physical exam- Primary Routine general medical examination at a [facility] care facility Type 2 diabetes mellitus with hyperglycemia, without long-term current use of insulin ([facility]) Type 2 diabetes mellitus with hyperglycemia, without long-term current use of insulin ([facility])- Primary Arthritis, gouty Gouty arthropathy, unspecified Seasonal allergic rhinitis due to pollen DDD (degenerative disc disease), lumbar Degeneration of lumbar or lumbosacral intervertebral disc Polyneuropathy due to type 2 diabetes mellitus ([facility]) Primary insomnia Persistent disorder of initiating or maintaining sleep Annual physical exam- Primary Routine general medical examination at a health care facility Encounter for preoperative assessment Type 2 diabetes mellitus with hyperglycemia, without long-term current use of insulin ([facility]) Arthritis, gouty Gouty arthropathy, unspecified Polyneuropathy due to type 2 diabetes mellitus ([facility]) Class 2 severe obesity due to excess calories with serious comorbidity and body mass index (BMI) of37.0 to 37.9 in adult ([facility]) Dyslipidemia ([facility]) Other and unspecified hyperlipidemia Morbid obesity ([facility]) Morbid obesity Polyneuropathy due to type 2 diabetes mellitus ([facility]) Type 2 diabetes mellitus with hyperglycemia, without long-term current use of insulin ([facility]) documented in this encounter [facility] HealthcareEvaluation note* Diagnosis Annual physical exam- Primary Routine general medical examination at a health care facility Type 2 diabetes mellitus with hyperglycemia, without long-term current use of insulin ([facility]) Type 2 diabetes mellitus with hyperglycemia, without long-term current use of insulin ([facility])- Primary Arthritis, gouty Gouty arthropathy, unspecified Seasonal allergic rhinitis due to pollen DDD (degenerative disc disease), lumbar Degeneration of lumbar or lumbosacral intervertebral disc Polyneuropathy due to type 2 diabetes mellitus ([facility]) Primary insomnia Persistent disorder of initiating or maintaining sleep Annual physical exam- Primary Routine general medical examination at a health care facility Encounter for preoperative assessment Type 2 diabetes mellitus with hyperglycemia, without long-term current use of insulin ([facility]) Arthritis, gouty Gouty arthropathy, unspecified Polyneuropathy due to type 2 diabetes mellitus ([facility]) Class 2 severe obesity due to excess calories with serious comorbidity and body mass index (BMI) of37.0 to 37.9 in adult ([facility]) Dyslipidemia ([facility]) Other and unspecified hyperlipidemia Abscess of abdominal wall- Primary Cellulitis and abscess of trunk documented in this encounter [facility] HealthcareEvaluation note* Diagnosis Annual physical exam- Primary Routine general medical examination at a health care facility Type 2 diabetes mellitus with hyperglycemia, without long-term current use of insulin ([facility]) Type 2 diabetes mellitus with hyperglycemia, without long-term current use of insulin ([facility])- Primary Arthritis, gouty Gouty arthropathy, unspecified Seasonal allergic rhinitis due to pollen DDD (degenerative disc disease), lumbar Degeneration of lumbar or lumbosacral intervertebral disc Polyneuropathy due to type 2 diabetes mellitus ([facility]) Primary insomnia Persistent disorder of initiating or maintaining sleep Annual physical exam- Primary Routine general medical examination at a health care facility Encounter for preoperative assessment Type 2 diabetes mellitus with hyperglycemia, without long-term current use of insulin ([facility]) Arthritis, gouty Gouty arthropathy, unspecified Polyneuropathy due to type 2 diabetes mellitus ([facility]) Class 2 severe obesity due to excess calories with serious comorbidity and body mass index (BMI) of37.0 to 37.9 in adult ([facility]) Dyslipidemia ([facility]) Other and unspecified hyperlipidemia Abscess of abdominal wall- Primary Cellulitis and abscess of trunk Annual physical exam- Primary Routine general medical examination at a health care facility Morbid obesity ([facility]) Morbid obesity Polyneuropathy due to type 2 diabetes mellitus ([facility]) Type 2 diabetes mellitus with hyperglycemia, without long-term current use of insulin ([facility]) Arthritis, gouty Gouty arthropathy, unspecified documented in this encounter [facility] HealthcareEvaluation note* Diagnosis Annual physical exam- Primary Routine general medical examination at a health care facility Type 2 diabetes mellitus with hyperglycemia, without long-term current use of insulin ([facility]) Type 2 diabetes mellitus with hyperglycemia, without long-term current use of insulin ([facility])- Primary Arthritis, gouty Gouty arthropathy, unspecified Seasonal allergic rhinitis due to pollen DDD (degenerative disc disease), lumbar Degeneration of lumbar or lumbosacral intervertebral disc Polyneuropathy due to type 2 diabetes mellitus ([facility]) Primary insomnia Persistent disorder of initiating or maintaining sleep Annual physical exam- Primary Routine general medical examination at a health care facility Encounter for preoperative assessment Type 2 diabetes mellitus with hyperglycemia, without long-term current use of insulin ([facility]) Arthritis, gouty Gouty arthropathy, unspecified Polyneuropathy due to type 2 diabetes mellitus ([facility]) Class 2 severe obesity due to excess calories with serious comorbidity and body mass index (BMI) of37.0 to 37.9 in adult ([facility]) Dyslipidemia ([facility]) Other and unspecified hyperlipidemia Abscess of abdominal wall- Primary Cellulitis and abscess of trunk Male hypogonadism Other testicular hypofunction documented in this encounter [facility] HealthcareEvaluation note* Diagnosis Annual physical exam- Primary Routine general medical examination at a health care facility Type 2 diabetes mellitus with hyperglycemia, without long-term current use of insulin ([facility]) Type 2 diabetes mellitus with hyperglycemia, without long-term current use of insulin ([facility])- Primary Arthritis, gouty Gouty arthropathy, unspecified Seasonal allergic rhinitis due to pollen DDD (degenerative disc disease), lumbar Degeneration of lumbar or lumbosacral intervertebral disc Polyneuropathy due to type 2 diabetes mellitus ([facility]) Primary insomnia Persistent disorder of initiating or [...] index (BMI) of37.0 to 37.9 in adult ([facility]) Dyslipidemia ([facility]) Other and unspecified hyperlipidemia Abscess of abdominal wall- Primary Cellulitis and abscess of trunk Polyneuropathy due to type 2 diabetes mellitus ([facility]) documented in this encounter [facility] HealthcareEvaluation note* Diagnosis Annual physical exam- Primary [...] index (BMI) of37.0 to 37.9 in adult ([facility]) Dyslipidemia Other and unspecified hyperlipidemia Type 2 [...] index (BMI) of37.0 to 37.9 in adult ([facility]) Type 2 diabetes mellitus with diabetic chronic kidney disease (HCC) Chronic kidney disease, stage 3a ([facility]) documented in this encounter [facility] HealthcareEvaluation note* Diagnosis Aftercare following left knee joint replacement surgery documented in this encounter [facility] note* Diagnosis Annual physical exam- [...] hyperglycemia, without long-term current use of insulin ([facility]) Arthritis, gouty Gouty arthropathy, unspecified 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) Class 2 severe obesity due to excess calories with serious comorbidity and body mass index (BMI) of37.0 to 37.9 in adult ([facility]) Dyslipidemia Other and unspecified hyperlipidemia Type 2 diabetes mellitus with hyperglycemia, without long-term current use of insulin ([facility])- Primary Arthritis, gouty Gouty arthropathy, unspecified Seasonal allergic rhinitis due to pollen Primary insomnia Persistent disorder of initiating or maintaining sleep Degeneration of intervertebral disc of lumbar region with discogenic back pain Class 2 severe obesity due to excess calories with serious comorbidity and body mass index (BMI) of37.0 to 37.9 in adult ([facility]) Type 2 diabetes mellitus with diabetic chronic kidney disease (HCC) Chronic kidney disease, stage 3a ([facility]) 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) [facility] Narrative - Reported* Type Description Date Medical History DM II Medical HistoryHTNMedical HistoryhyperlipidemiaMedical HistorygoutSurgical Historyknee surgerySurgical HistorytonsillectomySurgical Historyvasectomy Surgical Historysinus surgerySurgical Historyback injectionsHospitalization HistorySEE ABOVE SURGICAL HX [facility] Other Hospital course Narrative No data available for this section [facility] progress note No data available for this section [facility] Summary Purpose Family History No Family [...] content) DATE CREATED AUTHOR 03/29/[address] [facility] DATE CREATED AUTHOR AUTHOR'S ORGANIZ ATION 08/06/2022 [facility] DATE CREATED AUTHOR AUTHOR'S ORGANIZ ATION 12/20/2022 [facility] DATE CREATED AUTHOR AUTHOR'S ORGANIZ ATION 07/28/2024 [facility] DATE CREATED AUTHOR AUTHOR'S ORGANIZ ATION 01/14/2025 [facility] DATE CREATED AUTHOR AUTHOR'S ORGANIZ ATION 02/04/2025 [facility] DATE CREATED AUTHOR AUTHOR'S ORGANIZ ATION 03/31/2025 [facility] REASON FOR VISIT (unrecogniz ed section and content) ReasonCommentsMed RefillReasonOnset DateCommentsMed Hivgfv9304/06/2024eason FpcftjklXgvwoq-sf0dJfrdfrOjcqlczmZujefu-jjVqyd on stomach/ poppedReasonOnset DateCommentsMed Ouqten5511/08/2024ReasonOnset DateCommentsMed Ffbdtq5612/06/2024 Patient Care team informatio n (unrecognized section and content) Team MemberRelationshipSpecialtyStart DateEnd Date Tulio Ruggiero MD [address] [place] [address] PCP - [place] Ydiolmoxdg30/1/23 Tulio Ruggiero MD [address] [place] [address] PCP - GeneralFamily Medicine01/12/24Team MemberRelationshipSpecialtyStart DateEnd Date Tulio Ruggiero MD [address] [place] [address] PCP - [place] Totolcufdy84/1/23 Tulio Ruggiero MD [address] [place] [address] PCP - [facility] Medicine01/12/24Team MemberRelationshipSpecialtyStart DateEnd Date Tulio Ruggiero MD [address] [place] [address] PCP - [place] Luctihfzel77/1/23 Tulio Ruggiero MD [address] [place] [address] PCP - [facility]01/12/24Team MemberRelationshipSpecialtyStart DateEnd Date Tulio Ruggiero MD [address] [place] [address] PCP - [place] Lglijfzeve38/1/23 Tulio Ruggiero MD [address] [place] [address] PCP - Generalmi Medicine01/12/24Team MemberRelationshipSpecialtyStart DateEnd Date Tulio Ruggiero MD [address] [place] [address] PCP - [place] Pqorjupyjx15/1/23 Tulio Ruggiero MD [address] [place] [address] PCP - GeneralFamily Medicine01/12/24Team MemberRelationshipSpecialtyStart DateEnd Date Tulio Ruggiero MD [address] [place] [address] PCP - [place] Xvgenvcpzs71/1/23 Tulio Ruggiero MD [address] [place] [address] PCP - Generalmi Medicine01/12/24Team MemberRelationshipSpecialtyStart DateEnd Date Tulio Ruggiero MD [address] [place] [address] PCP - [place] Rgpswjburr49/1/23 Tulio Ruggiero MD [address] [place] [address] PCP - Generalmily Medicine01/12/24Team MemberRelationshipSpecialtyStart DateEnd Date Tulio Ruggiero MD [address] [place] [address] PCP - GeneralFamily Medicine01/12/24Team MemberRelationshipSpecialtyStart DateEnd Date Tulio Ruggiero MD [address] [place] [address] PCP - GeneralFamily Medicine01/12/24Team MemberRelationshipSpecialtyStart DateEnd Date Tulio Ruggiero MD [address] [place] [address] PCP - GeneralFamily Medicine01/12/24Team MemberRelationshipSpecialtyStart DateEnd Date Tulio Ruggiero MD [address] [place] [address] PCP - GeneralFamily Medicine01/12/24Team MemberRelationshipSpecialtyStart DateEnd Date Tulio Ruggiero MD [address] [place] [address] PCP - GeneralFamily Medicine01/12/24Team MemberRelationshipSpecialtyStart DateEnd Date Tulio Ruggiero MD [address] [place] [address] PCP - GeneralFamily Medicine01/12/24Team MemberRelationshipSpecialtyStart DateEnd Date Tulio Ruggiero MD [address] [place] [address] PCP - GeneralFamily Medicine01/12/24Team MemberRelationshipSpecialtyStart DateEnd Date Tulio Ruggiero MD [address] [place] [address] PCP - GeneralFamily Medicine01/12/24Team MemberRelationshipSpecialtyStart DateEnd Date Tulio Ruggiero MD [address] [place] [address] PCP - GeneralFamily Medicine01/31/25Team MemberRelationshipSpecialtyStart DateEnd Date Tulio Ruggiero MD [address] [place] [address] PCP - [place] Ptxuppqwbf07/1/ Tulio Ruggiero MD [address] [place] [address] PCP - GeneralFamily Medicine01/12/24Team MemberRelationshipSpecialtyStart DateEnd Date Tulio Ruggiero MD PCP - GeneralFamily Medicine Tulio Ruggiero MD [address] [place] [address] PCP - [place] Leqjalsxit69/1/ Tulio Ruggiero MD [address] [place] [address] PCP - GeneralFamily Medicine01/12/24Team MemberRelationshipSpecialtyStart DateEnd Date Tulio Ruggiero MD PCP - GeneralFamily Medicine01/12/24Team MemberRelationshipSpecialtyStart DateEnd Date Tulio Ruggiero MD PCP - [facility]01/12/24Team MemberRelationshipSpecialtyStart DateEnd Date Tulio Ruggiero MD PCP - [facility] Medicine Tulio Ruggiero MD [address] [place] [address] [facility] Tulio Ruggiero MD [address] [place] [address] [facility]01/12/24Team MemberRelationshipSpecialtyStart DateEnd Date Tulio Ruggiero MD [facility] - [facility]01/12/24 FOR RECORDS PERTAINING TO PATIENTS WHO [...] THE PRIMARY CLINICAL RECORDS. [facility] [employer] [facility]. provides no warranty or guarantee of the accuracy or completeness of information in this document.
== END 2025-05-25 10:38 | disposition home or self-care (01) ==
LOC: RAD 10:42
PROVIDERS: PCP Family Medicine; Visit Provider Physician Assistant
DX: N20.0 Calculus of kidney (principal)
CPT/HCPCS: 74018

== ENCOUNTER 2025-05-27 09:27 | Outpatient (OUT) | payer MEDICARE, OTHER, SELFPAY ==
--- OUTSIDE RECORDS SUMMARY | 2024-11-22 08:10 | XMS_ITS ---
Author Organization [facility] Address [address] [place] [address] Care Team Providers Care Corner Block Cutter Name Role Phone Tulio Madrid Primary Care Provider Daniele Ruffin Unavailable [phone] REASON FOR VISIT LEFT KNEE RECHECK DOS 02.10 Encounters Encounter Location Date Provider Diagnosis [facility] Office [address] [place] [address] [place] [address] 11/22/2024 Daniele Valencia Aftercare following joint replacement surgery Z47.1 Assessments Encounter Date Diagnosis (ICD Code) Assessment Notes Treatment Notes Treatment Clinical Notes Section Notes 11/22/2024 Aftercare following joint replac ement surgery (ICD-10 - Z47.1) Plan Of Treatment Pending Test Test Name Order Date SCC- KNEE 2 VIEW LEFT - [id number] 11/22/2024 Progress Notes * CARLOS LOCKE CDOB: [birth year] (69 yo M)Acc No.[id number]:11/22/2024 Patient:?CARLOS LOCKE :?Daniele Valencia, DODOB:1955???Age:69 Y ???Sex:MaleDate:11/22/2024Phone:[phone]:JARETH DUNCAN [id number]:Tulio Madrid Subjective: * Chief Complaints: * 1 . LEFT KNEE RECHECK DOS 02.10. * Medical History: Objective: * Vitals: Assessment: * Assessment: 1.?Aftercare following joint replacement surgery - Z47.1 (Primary)??? Plan: * Treatment: ?Imaging: SCC- KNEE 2 VIEW LEFT - 13975 * Procedure Codes: 7 3560 X-ray Knee, 2 view Forms: * Images: * Electronic signature of Daniele Valencia DO on 05/27/2025 at 09:30 AM ESTSign off status: Pending * Provider: Noa Valencia DO Date: 0 11/22/2024 Generated for Printing/Faxing/eTransmitting on:?05/27/2025 09:30 AM EST
--- OUTSIDE RECORDS SUMMARY | 2025-05-27 09:30 | XMS_ITS | Encounter Summary ---
Author Organization [facility] Address [address] [place] [address] Care Team Providers Care Concrete Pipe Machine Operator Name Role Phone Tulio Madrid MD Primary Care Provider [phone] Encounter Details DateTypeDepartmentCare Team (Latest Contact Info)Vqdywtrwloa13/07/2025linisync Result Encounter [facility] External Department Unsolicited Provider, Generic External Data Social History Tobacco UseTypesPacks/DayYears UsedDateSmoking Tobacco: NeverSmokeless Tobacco: NeverSex and Gender InformationValueDate RecordedSex Assigned at BirthNot on fileLegal NasCgol6109/25/2022 7:24 PM EDTGender IdentityNot on fileSexual OrientationNot [...] EST Narrative 07/20/2024 8:01 PM EST [facility] ?[address] ? [place] [address] ? Electrocardiograph Report ? Signed ? Patient: CORNELIA,WARNER Farrar ?MR#: [id number] ?? : 1955 ?Acct:[id number] ?? Age/Sex: 68 / M ?ADM Date: 07/20/24 ?? Loc: PST ? Attending Dr: Daniele Valencia M.D. ? Ordering Physician: Daniele Valencia M.D. ?? Date of Service: 07/20/24 ?? Procedure(s): ECG 12 lead ?? Accession Number(s): [id number] ? cc: ?[facility] ? Test Date: ?2024-07-20 ?? Pat Name: ? WARNER CORNELIA ? Department: ? Room: ? - ?? Gender: ? Male ? Electronic Security Technician: ? : ?1955 ? Requested By: [id number] ?? Order Number: [id number] ?Reading MD: ?? ABDOULAYE ??BALL ? Measurements ?? Intervals ?Magazine ? Rate: ? 73 ? P: ?65 ?? NC: ? 169 ?QRS: ?-58 ?? QRSD: ? [...] 2001 ? DD/ 0949 ? TD/TT: ? Tick Sewer: Procedure Note Radiology, Radiologist, - 07/20/2024 [place] [address] Electrocardiograph Report Signed Patient: WARNER LOCKE CMR#: [id number] : 1955cct:[id number] Age/Sex: 68 / MADM Date: 07/20/24 Loc: [facility] Attending Dr: Daniele Valencia M.D. Ordering Physician: Daniele Valencia M.D. Date of Service: 07/20/24 Procedure(s): ECG 12 lead Accession Number(s): [id number] cc: [facility] Test Date: 2024-07-20 Pat Name: WARNER LOCKE Department: Room: - Gender: Male Electronic Security Technician: : 1955 Requested By: [id number] Order Number: [id number] Reading MD: ABDOULAYE PADILLA Measurements Intervals Magazine Rate: 73 P: 65 NC: 169 QRS: -58 QRSD: 140 T: 38 QT: 387 QTc: 429 Interpretive Statements SINUS RHYTHM RIGHT BUNDLE BRANCH BLOCK [120+ ms QRS DURATION, UPRIGHT V1, 40+ ms S IN I/aVL/V4/V5/V6] LEFT ANTERIOR FASCICULAR BLOCK [QRS AXIS <= -45, QR IN I, RS IN II] Electronically Signed On 07-20-2024 20:01:19 EST by ABDOULAYE PADILLA Dictated By: Abdoulaye Padilla D.O. Signed By:07/20/242000 DD/ 0949 TD/TT: Tick Sewer: Authorizing ProviderResult TypeResult StatusGeneric External Data Provider [facility]NC IMAGINGFinal Result documented in this encounter Visit Diagnoses Not on filedocumented in this encounter Care Teams Team MemberRelationshipSpecialtyStart DateEnd Date Tulio Madrid MD PCP - GeneralFamily Medicine01/12/24documented as of this encounter
--- OUTSIDE RECORDS SUMMARY | 2025-05-27 09:30 | XMS_ITS | Clinical Summary ---
Author Organization [facility] Address [address] [place] [address] Care Team Providers Care Supervisor Metalizing Name Role Phone Tulio Madrid MD Primary Care Provider [phone] Allergies Active AllergyReactionsCriticalityNoted DrbyQhtcpgywAkdnjlqcaAjfwm41/18/2023 Oxycodone-Jhdzscnwejzix38/18/2023 Medications MedicationSigDispense QuantityRefillsLast FilledStart DateEnd DateStatus atorvastatin (Lipitor) 20 mg tablet atorvastatin 20 mg tablet TAKE 1 TABLET BY MOUTH EVERYDAY AT SLYUZCK8004/25/2020Active colchicine 0.6 mg tablet Take 0.6 mg [...] 2 TABLETS BY MOUTH EVERY DAY AT GMTXFNI5407/11/2022ctive Active Problems ProblemNoted DateDiagnosed DateBenign prostatic hyperplasia with urinary qqxwlaguoax95/18/2023History of colonic bzmoho7107/31/2022Hydronephrosis with renal and ureteral calculus /18/2023Liver mass07/31/2022Long term current use of anticoagulant ynerbuv1107/31/2022Neoplasm of uncertain behavior of liver and biliary iaomlovp90/18/6490Dfmhdifx89/18/6541Xcbrwn35/31/2022ack pain 12/11/2021iabetes okflhrbz16/31/0840Bylt37/31/2022History of pulmonary embolism 12/11/2021 Assessment & Plan (07/31/2022 2:19 PM EST): Currently stable History of severe acute respiratory syndrome coronavirus 2 (SARS-CoV-2) disease 12/11/20210266Hosqqakrrlwbbi55/31/2022 Assessment & Plan (07/31/2022 2:17 PM EST): Lipid abnormalities are currently well controlled with lipitor 20 mg- LDL currently 58.6 on labs 07/26/2022 Liver function 04/2022 were normal Hypertensive yhszezlq72/31/2022 Assessment & Plan (07/31/2022 2:18 PM EST): Hypertension is well controlled 114/64 Continue lisinopril 5 mg Recent CR elevated 1.59- his cr typically has been 1.2-1.4 - He has been on antibiotics for Lt foot infection- DFU with wound care. Frxumag8312/11/2021bstructive sleep apnea poepqpxl42/31/2022 Family History Medical HistoryRelationNameCommentsStrokeFatherRelationNameStatusCommentsFather Social History Tobacco UseTypesPacks/DayYears UsedDateSmoking Tobacco: NeverSmokeless Tobacco: Never Tobacco Cessation:Counseling Given: Not Answered Alcohol UseStandard Drinks/WeekCommentsYes0 (1 standard drink = 0.6 oz pure alcohol)occasionalUT Safety & EnvironmentAnswerDate RecordedFear of Current or Ex-PartnerNot on file09/04/2023Emotionally AbusedNot on file09/04/2023hysically AbusedNot on file09/04/2023Sexually AbusedNot on file09/04/2023hysically or Sexually AbusedNot on file09/04/2023Sex and Gender InformationValueDate Recorded Sex Assigned at BirthNot on fileLegal JrvKvtr3901/09/2022 9:30 PM EDTGender IdentityNot on fileSexual OrientationNot on file Last Filed Vital Signs Vital SignReadingTime TakenCommentsBlood Dgeyhrty325/6401 1:39 PM EST Cknpi185707/31/2022 1:39 PM ESTTemperature--Respiratory Rate--Oxygen Tzohaulbrv86% 07/31/2022 1:39 PM ESTInhaled Oxygen Concentration--Ecopjl359 kg (308 lb) 07/31/2022 1:39 PM ENZTpvdvt922.4 cm (6' 1 )07/31/2022 1:39 PM ESTBody Mass Index40.64007/31/2022 1:39 PM EST Plan of Treatment Health MaintenanceDue DateLast DoneCommentsCT Xdpifkmswson87/09/1956Colonoscopy 1955Colorectal Cancer Ytugobiii47/09/1957Diabetes: Hemoglobin A1C 1955FIT-DNA1956FIT1956FOBT1956Medicare Annual Wellness (AWV)1955 0061Qwaqgtmsyikhb94/09/1957Diabetes: Retinopathy Yxyjtlqlw94/09/1967 Depression Xthscqvxg94/09/1969Diabetes: Urine Protein Kleaykhoq90/09/1976Adult Dlrygyi4008/22/1978Zoster Vaccines (1 of 2)2006Fall Risk Ekyunielc65/09/2022 Pneumococcal Vaccine: 50+ Years (2 of 2 [...] Date Tulio Madrid MD [address] [place] [address] PCP - [facility]07/05/24
--- OUTSIDE RECORDS SUMMARY | 2025-05-27 09:30 | XMS_ITS | Patient Health Record ---
Author Organization [facility] Address [address] [place] [address] Care Team Providers Care Health Insurance Specialist Name Role Phone Tulio Madrid Primary Care Provider Daniele Ruffin Unavailable [phone] Akash Hall Unavailable [phone] Results Component Value Reference Range Notes MRI Knee Surg.Navigate or Pl an ONLY Left (Not yet reviewed by provider) Interpretation: Performing Lab: Notes/Report: Patient Name: Carlos Locke HISTORY: Arthritis of the left knee. Preoperative planning. XR KNEE LEFT (3 VIEWS) (Not yet reviewed by provider) Interpretation: Performing Lab: Notes/Report: EXAM: XR KNEE LEFT (3 VIEWS) Performed at: [address] [address] XR Knee 1 or 2 Views Left [...] Lab: Notes/Report: Primary Insurance Company: WILFRID Surgeon/Assist:ANTHONY/VAHE ONESmackenzie Location:[facility] Date & Time: 08/09/2024 @ 9 AMHosp arrival time day of:7:00 AMSurgery End Time:12:00Procedure: LEFT TOTAL KNEE ARTHROPLASTYSpecial Equipment:BOWMAN AND NEPHEW VISIONEERC-Arm: YESDiagnosis:OSTEOARTHRITIS OF LEFT KNEEAdmission Type:OPAnesthesia Type/CPNB: GENERAL/TSHHVIij48 HR OBSPost-op Appointment Date:08/23/24 @ 2 PMLatex AllergyNO Lab Location:[facility] Date/Time:07/20/2024 @ 9 AM[facility] Date/ Halal Meat Packer:ISMAEL Munozory & Physical Appointment Date/:07/26/24Pre-op labs/Chest Order:CBC [...] MRI WITH BOWMAN AND NEPHEW PROTOCOL AT [facility] Diagnosis 1 Primary osteoarthrit is of left knee (M17.12) Diagnosis 2 Pain in left knee (M 25.562) Referral Organization [facility] Referring Provider First Name Daniele Referring Provider Last Name Anthony Referring Provider Speciality Orthopedic Surgery Referred Organization [facility] Radiology Dept . Referred Provider Daniele Valencia Referred Address [address] [place] [address], Referred Provider Specialty Orthopedic S urgery Procedure 1 MRI Joint Lower Ext w/o Dye (81401) General Notes Ismael Mariee 2023 10:22:15 AM >, Bell Avendano 06/23/2024 03:49:25 PM > PENDING WITH [facility]. FORM AND CLINICALS FAXED. FORM IN CHART.Juan Alberto Amber 06/25/2024 08:14:25 AM > NO PRIOR AUTH REQUIRED PER FAX FROM [facility]. REF IN CHART. PER AVAILITY, WILFRID IS ACTIVE OF 07/14/2022. FAXED TO [facility].Kodi Tricia 06/28/2024 06:56:53 AM >ORDERS FAXED Referral Priority Routine Reason APPROVED ANTHEM... 08/09...PLEASE PRECERT LEFT TOTAL KNEE REPLACEMENT WITH BOWMAN AND NEPHEW AT [facility] Diagnosis 1 Primary osteoarthrit is of left knee (M17.12) Referral Organization [facility] Referring Provider First Name Daniele Referring Provider Last Name Anthony Referring Provider Speciality Orthopedic Surgery Referred Organization [facility] Outpatient Referred Provider Daniele Valencia Referred Address [address] [place], [place],[address],[place] Referred Provider Specialty Orthopedic S urgery Procedure 1 Arthroplasty Knee To clare Med/Lat Compartments (38459) General Notes Ismael Mariee 2024 09:43:18 AM >, Bell Avendano 07/23/2024 12:38:24 PM > AUTH IS PENDING WITH [facility]. FORM AND CLINICALS WERE FAXED. FORM IN CHART.Juan Alberto Amber 07/26/2024 02:03:05 PM > AUTH WAS APPROVED PER PRABHA. APPROVED DATES ARE FROM 07/23/2024-09/20/2024. AUTH #[id number]. AUTH IN CHART. PER AVAILITYWILFRID IS ACTIVE OF 07/14/2022. FAXED TO [place]. Referral Priority Routine Medications Medication SIG (Take, [...] in the past year?Monthly or less (1 point)Xklxhc6TesqfzfjyzztcrSbjfguhu Tobacco Control (Standard) Question Answer Notes Tobacco use: Nonsmoker Problems Problem Type SNOMED Code ICD Code Onset Dates Problem Status W/U Status Risk Notes Problem History of musculosk eletal operation (664722683) Aftercare following joint replacement surgery (Z47.1) ActiveconfirmedProblemPain of right knee region (finding) (530967790992402)Pain in right knee (M25.561)ActiveconfirmedProblemOsteoarthritis of knee (884949943) Primary osteoarthritis of left knee (M17.12)ActiveconfirmedProblemPain of left knee joint (finding) (414780916616222)Pain in left knee (M25.562)Activeconfirmed ProblemArtificial knee joint present (042253564111)Presence of left artificial knee joint (Z96.652)ActiveconfirmedProblemBilateral arthritis of knees (4730105689637064)Primary osteoarthritis of knees, bilateral (M17.0)Active confirmed Vital Signs Height 6'1 in 01/31/2025 Kujrej828 lbs5BMI37.9901/31/2025 Encounters Encounter Location Date Provider Diagnosis [facility] [address] [place] [address] 06/21/2024 Danielejavier Valencia Pain in right knee M25.561 ; Pain in left knee M25.562 and Primary osteoarthritis of left knee M17.[address] [address] 07/26/2024 Daniele Valencia Primary osteoarthrit is of left knee M17.12 [facility] Outpatient [address] [place] [address] 08/23/2024 Daniele Valencia Primary osteoarthrit is of left knee M17.12 [facility] [address] [place] [address] 09/06/2024 Daniele Valencia Aftercare following joint replacement surgery Z47.1 and Presence of left artificial knee joint Z96.652 [facility] [address] [place] [address] 10/04/2024 Daniele Valencia Aftercare following joint replacement surgery Z47.1 and Presence of left artificial knee joint Z96.652 [facility] [address] [place] [address] 12/20/2024 Daniele Valencia Aftercare following joint replacement surgery Z47.1 and Presence of left artificial knee joint Z96.652 [facility] Office [address] [place] [address] 01/31/2025 Daniele Valencia Aftercare following joint replacement surgery Z47.1 and Presence of left artificial knee joint Z96.652 [facility] [address] [place] [address] 06/08/2024 Ak[facility] [place] [address]/ [facility] [place] [address]/04/2025Dylan DorenaPrimary osteoarthritis of left knee M17.12 ; Presence of left artificial knee joint Z96.652 and Aftercare following joint replacement surgery Z47.1[facility] [place] [address]/Dylan MathewsAftercare following joint replacement surgery Z47.1[place] [address] [place] [address]/09/2024Dylan MathewsAftercare following joint replacement surgery Z47.1 Assessments Encounter Date Diagnosis (ICD Code) Assessment Notes Treatment Notes Treatment Clinical Notes Section Notes 06/21/2024 Pain in right knee (ICD-10 - M25 .561) Left knee zanpontgqocecm05/09/2024ain in left knee (ICD-10 - M25.562)Left knee zycrvvayivperc38/13/2025Primary osteoarthritis of left knee (ICD-10 - M17.12) Left knee grvmyovkkyzwfw43/10/2025Primary osteoarthritis of left knee (ICD-10 - M17.12)08/23/2024Primary osteoarthritis of left knee (ICD-10 - M17.12)08/23/2024 Presence of left artificial knee joint (ICD-10 - Z96.652)08/26/2024ftercare following joint replacement surgery (ICD-10 - Z47.1)09/06/2024ftercare following joint replacement surgery (ICD-10 - Z47.1)Status post left total knee wpysyolkfuui18/03/2025ftercare following joint replacement surgery (ICD-10 - Z47.1)10/04/2024ftercare following joint replacement surgery (ICD-10 - Z47.1) Status post left total knee zhuurofqvsgd04/09/2025ftercare following joint replacement surgery (ICD-10 - Z47.1)Status post left total knee arthroplasty. 01/31/2025ftercare following joint replacement surgery (ICD-10 - Z47.1)Right knee OA01/31/2025Presence of left artificial knee joint (ICD-10 - Z96.652)Right knee OA12/20/2024Presence of left artificial knee joint (ICD-10 - Z96.652)Status post left total knee arthroplasty.10/04/2024Presence of left artificial knee joint (ICD-10 - Z96.652)Status post left total knee dfuuoeznjoty54/24/2025 Presence of left artificial knee joint (ICD-10 - Z96.652)Status post left total knee /10/2025ercare following joint replacement surgery (ICD-10 - Z47.1)06/21/2024rimary osteoarthritis of left knee (ICD-10 - M17.12)Left knee rwjzultucbdpqc33/09/2024OtherI discussion with the patient regarding his left [...] Plan for left total knee arthroplasty.Left knee fenardtfdyjtvr35/24/2025OtherPatient overall doing very well today in regard to his left total knee arthroplasty. Mobilizing quite well. Range of motion he is fairly stiff but overall progressing appropriately. Continue DVT prophylaxis. Follow-up in 1 month for clinical exam no x-rays.Status post left total knee rzwfymxcovac92/24/2025OtherPatient doing well today 6 weeks postop. Range of motion improving. Continue with aggressive PT. Hemay start to drive. Will see him back in the office in 6 weeks with x-raysStatus post left total knee vbbkqwoopxij21/09/2025OtherPatient doing quite well today in regards to [...] Order Date Knee, left 3v AP, Lat, [place] - 23189 0 01/31/2025 PT - Evaluate and Treat, as directed, 2 - 3 times a week x 4 - 6 weeks 07/26/2024 XR Foreign Body Loc Eye Bilateral 2024 XR Knee 1 or 2 Views Left 07/23/2024 XR Knee Standing AP Bilateral 07/26/2024 XR Knee Standing AP Bilateral 07/26/2024 SCC- KNEE 4 VIEW LEFT-07337 06/21/2024 XR KNEE LEFT (3 VIEWS) 01/31/2025 SCC- KNEE 4 VIEW RIGHT 11144 06/21/2024 SCC- KNEE 2 VIEW LEFT - 05765 09/06/2024 SCC- KNEE 2 VIEW LEFT - 39504 10/04/2024 SCC- KNEE 2 VIEW LEFT - 81743 12/20/2024 MRI Knee Surg.Navigate or Plan ONLY Left 07/23/2024 Hip to ankle Lt -79121 visioneer 024 MRI : Knee, Left. [employer] Visiona shanita including long leg films 73326 06/21/2024 Insurance Providers Payer Name Payer Address Payer Phone Subscriber Number Group Number Insured Name Patient Relationship to Insured Coverage Start Date Coverage End Date Wilfrid [address] [place] [address] [id number] ILA LOCKE Spouse - patient is the spouse of the insured Medications Administered Medication Instructions Date of Administration Dosage Notes BUPIVACAINE mLDepo-Gqsdyj36 yZpzolsftjs80/26/20244 mL
--- OUTSIDE RECORDS SUMMARY | 2025-05-27 09:30 | XMS_ITS | Clinical Summary ---
Author Organization [facility]der Lu[facility] Address [address] [place] [address], [address] [place] [address] Care Team Providers Care Card Grinder Name Role Phone Tulio Madrid MD Primary Care Provider + Social History Tobacco UseTypesPacks/DayYears UsedDateSmoking Tobacco: Never AssessedSex and Gender InformationValueDate RecordedSex Assigned at BirthNot on fileLegal Sex Male01/31/2025 12:58 PM EDTGender IdentityNot on fileSexual OrientationNot on file Plan of Treatment Health MaintenanceDue DateLast DoneCommentsDepression Qplrzd0108/22/1968Hepatitis C qpsufe7308/22/1974DTaP/Tdap/Td vaccine (1 - Tdap)08/22/19751558Ioeywn76/09/1997 Jajacdyfhkb17/09/2002Colorectal Cancer Nrhvze3308/22/2001FIT/FOBT: Average risk 2001Fecal-DNA (Cologuard): Average risk2001Sigmoidoscopy/CT giutocxxnuew14/09/2002Shingles vaccine (1 of 2)2006Pneumococcal 50+ years Vaccine [...] Date Tulio Madrid MD [address] [place] [address] PCP - GeneralFaakly Medicine01/31/25
--- OUTSIDE RECORDS SUMMARY | 2025-05-27 09:30 | XMS_ITS | Clinical Summary ---
Author Organization [facility] Address [facility] [address] [place] [address] Care Team Providers Care [employer] Name Role Phone Unavailable Primary Care Provider Unavailabl e Social History Tobacco UseTypesPacks/DayYears UsedDateSmoking Tobacco: Never AssessedChildcare AnswerDate PypteixcVbltzcybfKrsdheq46/11/2019EmploymentAnswerDate Recorded CqavrgizjtHgmwegw25/11/2019Purpose - LifeAnswerDate RecordedPurpose and direction in pswcVohbczm50/11/2021ex and Gender InformationValueDate Recorded Sex Assigned at BirthNot on fileLegal UjmNtac6502/14/2015 9:00 PM EDTGender IdentityNot on fileSexual OrientationNot on file Plan of Treatment Health MaintenanceDue DateLast DoneCommentsDepression Gjtxgbcys45/09/1969Tobacco Zozgqniom00/09/1969Adult BMI Circuilmf38/09/1975DTaP,Tdap and Td Vaccines (1 - Tdap)1975Zoster (Shingles) Vaccine (1 of 2)2006Fall Risk Screening 2021Influenza Yszvuad9003/14/2025RSV ( or age 60+ yrs) (1 - 1-dose 75+ series)2031 Medical Devices Not on file
--- OUTSIDE RECORDS SUMMARY | 2025-05-27 09:30 | XMS_ITS | Encounter Summary ---
Author Organization [facility] Address [address] [place] [address] Care Team Providers Care Assistant Maintenance Manager Name Role Phone Tulio Ruggiero MD Primary Care Provider [phone] Encounter Details DateTypeDepartmentCare Team (Latest Contact Info)Tvglxofyqzm49/07/2025linisync Result Encounter [facility] External Department Unsolicited Provider, Generic External Data Social History Tobacco UseTypesPacks/DayYears UsedDateSmoking Tobacco: NeverSmokeless Tobacco: NeverSex and Gender InformationValueDate RecordedSex Assigned at BirthNot on fileLegal JndVsdq7109/25/2022 7:24 PM EDTGender IdentityNot on fileSexual OrientationNot on filedocumented as of this encounter Plan of Treatment Not on file documented as of this encounter Procedures Procedure NamePriorityDate/TimeAssociated DiagnosisCommentsALL MISCELLANEOUS NBYGLvowgoc93/07/2025 9:59 AM EST MRSA SCREENING UWQFDPKBzahzcu54/07/2025 9:50 AM EST ECG 12-LEAD07/20/2024 9:50 AM EST documented in this encounter Results * ALL MISCELLANEOUS TEST (07/20/2024 9:59 AM EST)ComponentValueRef RangeTest MethodAnalysis TimePerformed AtPathologist SignatureMISCELLANEOUS TESTCOMMENT. TBHComment: Test Ordered: [id number] Nicotine and Metabolite, Ur Qn Nicotine <10.0 ng/mL BN ?? Reference Range: . This test was developed and its performance characteristics determined by [facility]. It has not been cleared [...] tobacco cessation products. Performed at: ?? - [facility] ??[id number] Screen Printing Inspector: Giovany Bhatt MD, Phone: ??[phone] Performed at: ?? - [facility] ??[id number] Screen Printing Inspector: Ivan Mckay PhD, Phone: ??[phone] Specimen (Source)Anatomical Location / LateralityCollection Method / Volume Collection TimeReceived Time07/20/2024 9:59 AM EST07/20/2024 10:02 AM EST Narrative CLINISYNC - 07/23/2024 7:09 AM EST [id number] Nicotine and Metabolite, Quantitative, Urine Authorizing ProviderResult TypeResult StatusGeneric External Data Provider CLINISYNCFinal ResultPerforming OrganizationAddressCity/State/ZIP CodePhone Number [facility] * MRSA SCREENING CULTURE (07/20/2024 9:50 AM EST)ComponentValueRef RangeTest MethodAnalysis TimePerformed AtPathologist SignatureMRSASCRN1 ??MRSA Screening Culture XLTCZVMBRED1RuwgpxxrNWISTYKZJNU9Tlpczzbdh at: [facility] HospitalTBHMRSASCRN1 [address] [place] [address] [id number] Director: Ivan Mckay PhD, Phone: [phone] (Source)Anatomical Location / LateralityCollection Method / VolumeCollection [...] EST Narrative 07/20/2024 8:02 PM EST [facility] ?[address] ? [place] [address] ? Electrocardiograph Report ? Signed ? Patient: CORNELIA,CARLOS C ?MR#: [id number] ?? : 1955 ?Acct:[id number] ?? Age/Sex: 68 / M ?ADM Date: 07/20/24 ?? Loc: PST ? Attending Dr: Daniele Valencia M.D. ? Ordering Physician: Daniele Valencia M.D. ?? Date of Service: 07/20/24 ?? Procedure(s): ECG 12 lead ?? Accession Number(s): [id number] ? cc: ?[facility] ? Test Date: ?2024-07-20 ?? Pat Name: ? CARLOS CORNELIA ? Department: ? Room: ? - ?? Gender: ? Male ? Computer Numerical Control Operator: ? : ?1955 ? Requested By: TULIO RUGGIERO ?? Order Number: [id number] ?Reading MD: ?? ABDOULAYE ??BALL ? Measurements ?? Intervals ?[place] ? Rate: ? 83 ? P: ?-3 ?? MN: ? 155 ?QRS: ?-53 ?? QRSD: ? [...] 2002 ? DD/ 0950 ? TD/TT: ? Instructional Materials Director: Procedure Note Radiology, Radiologist, - 07/20/2024 [place] [address] Electrocardiograph Report Signed Patient: CARLOS LOCKE CMR#: [id number] : 7Acct:[id number] Age/Sex: 68 / MADM Date: 07/20/24 Loc: PST Attending Dr: Daniele Valencia M.D. Ordering Physician: Daniele Valencia M.D. Date of Service: 07/20/24 Procedure(s): ECG 12 lead Accession Number(s): [id number] cc: [facility] Test Date: 2024-07-20 Pat Name: CARLOS LOCKE Department: Room: - Gender: Male Computer Numerical Control Operator: : 1955 Requested By: TULIO RUGGIERO Order Number: [id number] Reading MD: ABDOULAYE PADILLA Measurements Intervals [place] Rate: 83 P: -3 MN: 155 QRS: -53 QRSD: 141 T: 33 QT: 381 QTc: 449 Interpretive Statements SINUS RHYTHM RIGHT BUNDLE BRANCH BLOCK [120+ ms QRS DURATION, UPRIGHT V1, 40+ ms S IN I/aVL/V4/V5/V6] LEFT ANTERIOR FASCICULAR BLOCK [QRS AXIS <= -45, QR IN I, RS IN II] Electronically Signed On 07-20-2024 20:01:41 EST by ABDOULAYE PADILLA Dictated By: Abdoulaye Padilla D.O. Signed By:07/20/242001 DD/ 0950 TD/TT: Instructional Materials Director: Authorizing ProviderResult TypeResult StatusGeneric External Data Provider CLINISYNC IMAGINGFinal Result documented in this encounter Visit Diagnoses Not on filedocumented in this encounter Care Teams Team MemberRelationshipSpecialtyStart DateEnd Date Tulio Ruggiero MD PCP - GeneralFamily Medicine01/12/24documented as of this encounter
--- OUTSIDE RECORDS SUMMARY | 2025-05-27 09:31 | XMS_ITS | Encounter Summary ---
Author Organization [facility] Address [address] [place] [address] Care Team Providers Care Lead Press Operator Name Role Phone Tulio Madrid MD Primary Care Provider [phone] Encounter Details DateTypeDepartmentCare Team (Latest Contact Info)Etlrrqjazwz69/11/2024Clinisync Result Encounter [facility] External Department Unsolicited Provider, Generic External Data Social History Tobacco UseTypesPacks/DayYears UsedDateSmoking Tobacco: NeverSmokeless Tobacco: NeverSex and Gender InformationValueDate RecordedSex Assigned at BirthNot on fileLegal NvzBqfn4709/25/2022 7:24 PM EDTGender IdentityNot on fileSexual OrientationNot on filedocumented as of this encounter Plan of Treatment Not on file documented as of this encounter Procedures Procedure NamePriorityDate/TimeAssociated DiagnosisCommentsXR KNEE 4+ VIEWS ERWNRYPZE72/11/2024 6:16 AM EST documented in this encounter Results * XR knee 4+ views bilateral (06/23/2024 6:16 AM EST)Anatomical RegionLaterality ModalityLower Extremities, KneeBilateralRadiographic ImagingSpecimen (Source) Anatomical Location / LateralityCollection Method / VolumeCollection Time Received Time06/23/2024 6:16 AM EST Narrative 06/23/2024 6:19 AM EST [facility] ?[address] ? [place] [address] ?XRay Report ? Signed ? Patient: CORNELIA,WARNER C ?MR#: [id number] ?? : 1955 ?Acct:[id number] ?? Age/Sex: 68 / M ?ADM Date: 12/09/24 ?? Loc: EC ? Attending Dr: Daniele Valencia M.D. ? Ordering Physician: Daniele Valencia M.D. ?? Date of Service: 06/21/24 ?? Procedure(s): XR knee MARIE 4V ?? Accession Number(s): [id number] ? cc: Daniele Valencia M.D.; Tulio Madrid M.D. ? [facility] ? [address] ? [place] [address] ? Patient Name: ?? WARNER Farrar CORNELIA ? MRN: [facility]:[id number] ? date: 1955 ?Sex: M ?? Assigned Patient Location: EC ?? Current Patient Location: ? Accession/Order Number: [id number] ?? Exam Date: 06/21/2024 ??13:16 ?Report Date: 06/23/2024 ??06:16 ? At the request of: ?? DANIELE VALENCIA ? Procedure: ??XR knee MARIE 4V ? EXAMINATION: XR knee MARIE 4V ? HISTORY: BILATERAL KNEE PAIN ? COMPARISON: XR knee bilateral 03/24/2023 ? FINDINGS: ? RIGHT FINDINGS: ?? BONES: Marked narrowing of the medial joint space with vbso-dv-jgqh ?? articulation. Periarticular degenerative osteophytes involving all 3 ?? compartments; large involving the medial compartment. ?? SOFT TISSUES: No visible soft tissue swelling. ?? OTHER: Small joint effusion. ? LEFT FINDINGS: ?? BONES: Marked narrowing of the medial joint space with orgp-im-ighs ?? articulation. Periarticular degenerative osteophytes involving all [...] 0619 ? DD/ 0616 ? TD/TT: ? Professor Of Music: Procedure Note Radiology, Radiologist, MD - 12/11/[address] [address] XRay Report Signed Patient: WARNER LOCKE CMR#: [id number] : 1955cct:[id number] Age/Sex: 68 / MADM Date: 06/21/24 Loc: EC Attending Dr: Daniele Valencia M.D. Ordering Physician: Daniele Valencia M.D. Date of Service: 06/21/24 Procedure(s): XR knee MARIE 4V Accession Number(s): [id number] cc: Daniele Valencia M.D.; Tulio Madrid M.D. The [place] [address] Patient Name: WARNER LOCKE MRN: [facility]:[id number] date: 1955 Sex: M Assigned Patient Location: Current Patient Location: Accession/Order Number: [id number] Exam Date: 06/21/2024 13:16 Report Date: 06/23/2024 06:16 At the request of: DANIELE VALENCIA Procedure: XR knee MARIE 4V EXAMINATION: XR knee MARIE 4V HISTORY: BILATERAL KNEE PAIN COMPARISON: XR knee bilateral 03/24/2023 FINDINGS: RIGHT FINDINGS: BONES: Marked narrowing of the medial joint space with omjq-jm-vvbx articulation. 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 SOFT TISSUES: No visible soft tissue swelling. OTHER: Small joint effusion. LEFT FINDINGS: BONES: Marked narrowing of the medial joint space with abzb-ll-ntbz articulation. Periarticular degenerative osteophytes involving all 3 [...] Kenny M.D. Signed By:06/23/24618 DD/ 5 TD/TT: Professor Of Music: Authorizing ProviderResult TypeResult StatusGeneric External Data ProviderIMG XR PROCEDURESFinal Result documented in this encounter Visit Diagnoses Not on filedocumented in this encounter Care Teams Team MemberRelationshipSpecialtyStart DateEnd Date Tulio Madrid MD PCP - GeneralFamily Medicine01/12/24documented as of this encounter
--- OUTSIDE RECORDS SUMMARY | 2025-05-27 09:31 | XMS_ITS | Encounter Summary ---
Author Organization [facility] Address [address] [place] [address] Care Team Providers Care Wire Stripper Name Role Phone Tulio Madrid MD Primary Care Provider [phone] Encounter Details DateTypeDepartmentCare Team (Latest Contact Info)Pizlvysbdfk18/07/2025linisync Result Encounter [facility] External Department Unsolicited Provider, Generic External Data Social History Tobacco UseTypesPacks/DayYears UsedDateSmoking Tobacco: NeverSmokeless Tobacco: NeverSex and Gender InformationValueDate RecordedSex Assigned at BirthNot on fileLegal HncYbkv6609/25/2022 7:24 PM EDTGender IdentityNot on fileSexual OrientationNot [...] EST Narrative 07/20/2024 5:07 PM EST [facility] ?[address] ? [place] [address] ?XRay Report ? Signed ? Patient: CORNELIA,WARNER Farrar ?MR#: [id number] ?? : 1955 ?Acct:[id number] ?? Age/Sex: 68 / M ?ADM Date: 07/20/ ?? Loc: PST ? Attending Dr: Daniele Valencia M.D. ? Ordering Physician: Daniele Valencia M.D. ?? Date of Service: 07/20/24 ?? Procedure(s): XR chest 2V ?? Accession Number(s): [id number] ? cc: Daniele Valencia M.D.; Tulio Madrid M.D. ? [facility] ? [address] ? [place] [address] ? Patient Name: ?? WARNER Farrar CORNELIA ? MRN: [facility]:[id number] ? date: 1955 ?Sex: M ?? Assigned Patient Location: [facility] ?? Current Patient Location: LAB ?? Accession/Order Number: [id number] ?? Exam Date: 07/20/2024 ??10:06 ?Report Date: [...] 1707 ? DD/ 04 ? TD/TT: ? Tank Builder: Procedure Note Radiology, Radiologist, - 07/20/2024 [place] [address] XRay Report Signed Patient: WARNER LOCKE CMR#: [id number] : 1955cct:[id number] Age/Sex: 68 / MADM Date: 07/20/24 Loc: PST Attending Dr: Daniele Valencia M.D. Ordering Physician: Daniele Valencia M.D. Date of Service: 07/20/24 Procedure(s): XR chest 2V Accession Number(s): [id number] cc: Daniele Valencia M.D.; Tulio Madrid M.D. The [address] [address] Patient Name: WARNER LOCKE MRN: [facility]:[id number] date: 1955 Sex: M Assigned Patient Location: [facility] Current Patient Location: LAB Accession/Order Number: [id number] Exam Date: 07/20/2024 10:06 Report Date: 07/20/2024 [...] Mcarthur M.D. Signed By:07/20/241706 DD/ 04 TD/TT: Tank Builder: Authorizing ProviderResult TypeResult StatusGeneric External Data Provider CLINISYNC IMAGINGFinal Result documented in this encounter Visit Diagnoses Not on filedocumented in this encounter Care Teams Team MemberRelationshipSpecialtyStart DateEnd Date Tulio Madrid MD PCP - GeneralFamily Medicine01/12/24documented as of this encounter
--- OUTSIDE RECORDS SUMMARY | 2025-05-27 09:31 | XMS_ITS | Encounter Summary ---
Author Organization [facility] Address [address] [place] [address] Care Team Providers Care Switchman Supervisor Name Role Phone Tulio Madrid MD Primary Care Provider [phone] Tulio Madrid MD Unavailable Tulio Madrid MD Primary Care Provider [phone] Encounter Details DateTypeDepartmentCare Team (Latest Contact Info)Nftgtdegoai89/20/2023Clinisync Result Encounter [facility] External Department Unsolicited Provider, Generic External Data Social History Tobacco UseTypesPacks/DayYears UsedDateSmoking Tobacco: NeverSmokeless Tobacco: NeverSex and Gender InformationValueDate RecordedSex Assigned at BirthNot on fileLegal GiyGemq1309/25/2022 7:24 PM EDTGender IdentityNot on fileSexual OrientationNot [...] EST Narrative 07/02/2023 10:38 AM EST [facility] ?[address] ? [place] [address] ?XRay Report ? Signed ? Patient: CORNELIA,CARLOS C ?MR#: [id number] ?? : 1955 ?Acct:[id number] ?? Age/Sex: 67 / M ?ADM Date: 12/20/23 ?? Loc: RAD ? Attending Dr: Tonio Raya D.P.M. ? Ordering Physician: Tonio Raya D.P.M. ?? Date of Service: 07/02/23 ?? Procedure(s): XR foot LT min 3V ?? Accession Number(s): [id number] ? cc: Tonio Raya D.P.M.; Tulio Madrid M.D. ? [facility] ? [address] ? [place] [address] ? Patient Name: ?? CARLOS Farrar CORNELIA ? MRN: [facility]:[id number] ? date: 1955 ?Sex: M ?? Assigned Patient Location: RAD ?? Current Patient Location: RAD ?? Accession/Order Number: [id number] ?? Exam Date: 07/02/2023 ??08:44 ?Report Date: [...] 1038 ? DD/ 1035 ? TD/TT: ? Reinsurance Claim Analyst: Procedure Note Radiology, Radiologist, - 07/02/2023 [place] [address] XRay Report Signed Patient: CARLOS LOCKE CMR#: [id number] : 1955cct:[id number] Age/Sex: 67 / MADM Date: 07/02/23 Loc: RAD Attending Dr: Tonio Raya D.P.M. Ordering Physician: Tonio Raya D.P.M. Date of Service: 07/02/23 Procedure(s): XR foot LT min 3V Accession Number(s): [id number] cc: Tonio Raya D.P.M.; Tulio Madrid M.D. The [place] [id number] Patient Name: CARLOS LOCKE MRN: [facility]:[id number] date: 1955 Sex: M Assigned Patient Location: [facility] Current Patient Location: [facility] Accession/Order Number: [id number] Exam Date: 07/02/2023 08:44 Report Date: 07/02/2023 [...] M.D. Signed By:07/02/23 1038 DD/ 1035 TD/TT: Reinsurance Claim Analyst: Authorizing ProviderResult TypeResult StatusGeneric External Data Provider CLINISYNC IMAGINGFinal Result documented in this encounter Visit Diagnoses Not on filedocumented in this encounter Care Teams Team MemberRelationshipSpecialtyStart DateEnd Date Tulio Madrid MD PCP - GeneralFamily Medicine Tulio Madrid MD [address] [place] [address] PCP - Wilfrid Tee04/13/2311 Tulio Madrid MD [address] [place] [address] PCP - GeneralFamily Medicine01/12/24documented as of this encounter
--- OUTSIDE RECORDS SUMMARY | 2025-05-27 09:31 | XMS_ITS | Encounter Summary ---
Author Organization [facility] Address [address] [place] [address] Care Team Providers Care Luncheonette Manager Name Role Phone Tulio Madrid MD Primary Care Provider [phone] Tulio Madrid MD Unavailable Tulio Madrid MD Primary Care Provider [phone] Encounter Details DateTypeDepartmentCare Team (Latest Contact Info)Wlabujahjjj44/28/2024Clinisync Result Encounter [facility] External Department Unsolicited Provider, Generic External Data Social History Tobacco UseTypesPacks/DayYears UsedDateSmoking Tobacco: NeverSmokeless Tobacco: NeverSex and Gender InformationValueDate RecordedSex Assigned at BirthNot on fileLegal QfaPmpo5109/25/2022 7:24 PM EDTGender IdentityNot on fileSexual OrientationNot [...] ?[address] ? [place] [address] ?XRay Report ? Signed ? Patient: CORNELIA,WARNER C ?MR#: [id number] ?? : 1955 ?Acct:[id number] ?? Age/Sex: 68 / M ?ADM Date: 03/27/24 ?? Loc: EC ? Attending Dr: James Raya D.P.M. ? Ordering Physician: James Raya D.P.M. ?? Date of Service: 10/08/23 ?? Procedure(s): XR foot LT min 3V ?? Accession Number(s): [id number] ? cc: James Raya D.P.M.; Tulio Madrid M.D. ? [facility] ? [address] ? [place] [address] ? Patient Name: ?? WARNER Farrar CORNELIA ? MRN: [facility]:[id number] ? date: 1955 ?Sex: M ?? Assigned Patient Location: EC ?? Current Patient Location: ? Accession/Order Number: [id number] ?? Exam Date: 10/08/2023 ??08:55 ?Report Date: [...] 0553 ? DD/ 0550 ? TD/TT: ? Hand Assembler For Puller Over: Procedure Note Radiology, Radiologist, MD - 10/09/2023 [place] [address] XRay Report Signed Patient: AWRNER LOCKE CMR#: [id number] : 1955cct:[id number] Age/Sex: 68 / MADM Date: 10/08/23 Loc: EC Attending Dr: James Raya D.P.M. Ordering Physician: James Raya D.P.M. Date of Service: 10/08/23 Procedure(s): XR foot LT min 3V Accession Number(s): [id number] cc: James Raya D.P.M.; Tulio Madrid M.D. The [place] [address] Patient Name: WARNER LOCKE MRN: [facility]:[id number] date: 1955 Sex: M Assigned Patient Location: Current Patient Location: Accession/Order Number: [id number] Exam Date: 10/08/2023 08:55 Report Date: 10/09/2023 [...] Osteomyelitis is felt lesslikely. Electronically authenticated by: AKSAH KENNY Date: 10/09/2023 05:50 Dictated By: Akash Kenny M.D. Signed By:10/09/23 0553 DD/ 0550 TD/TT: Hand Assembler For Puller Over: Authorizing ProviderResult TypeResult StatusGeneric External Data Provider CLINISYNC IMAGINGFinal Result documented in this encounter Visit Diagnoses Not on filedocumented in this encounter Care Teams Team MemberRelationshipSpecialtyStart DateEnd Date Tulio Madrid MD PCP - GeneralFaprly Medicine Tulio Madrid MD [address] [place] [address] PCP - [place] Zsxbneywyb52/1/ Tulio Madrid MD [address] [place] [address] [facility] - [facility]01/12/24documented as of this encounter
--- OUTSIDE RECORDS SUMMARY | 2025-05-27 09:31 | XMS_ITS | Clinical Summary ---
Author Organization [facility] Address [address] [place] [address] Care Team Providers Care Motor Vehicle Assembler Name Role Phone Tulio Madrid MD Primary Care Provider [phone] Allergies Active AllergyReactionsCriticalityNoted ChdyKbefjkgwSeusqionz20/18/2023 Other Reaction(s): Hyperactive behavior, Other Oxycodone-AcetaminophenItching,QbbgVtl0907/31/2022 Medications MedicationSigDispense QuantityRefillsLast FilledStart DateEnd DateStatus allopurinol [...] long-term current use of insulin ([facility])TAKE 1 TABLET BY MOUTH EVERY DAY 90 [...] long-term current use of insulin ([facility])INJECT 2 MG SUBCUTANEOUSLY WEEKLY 9 mL 5Active febuxostat (Uloric) 40 MG tablet Indications:Type 2 diabetes mellitus with hyperglycemia, without long-term current use of insulin (HCC),Morbid obesity (CMS-HCC),Polyneuropathy due to type 2 diabetes mellitus ([facility])Take 1 tablet (40 mg) by mouth Daily [...] Indications:Polyneuropathy due to type 2 diabetes mellitus ([facility])TAKE 1 CAPSULE BY MOUTH IN THE MORNING, EVENING AND BEFORE BEDTIME 270 capsule 5Active Active Problems ProblemNoted DateDiagnosed DateEncounter for long-term current use of medication 08/05/2024Screening PSA (prostate specific antigen)08/05/2024Encounter for preoperative magftopukh54/02/2025 Assessment & Plan (07/15/2024 9:48 AM EST): Able to proceed with upcoming surgery at low risk for complications. History of DM but controlled with medication. No CAD or HTN. Not having chest pain or palpitations. Recommend routine PAT. Seasonal allergic rhinitis due to uvhovp8701/12/2024 Assessment & Plan (01/12/2025 9:44 AM EDT): [...] trazodone. Polyneuropathy due to type 2 diabetes szjrsopa78/10/2024 Assessment & Plan (07/15/2024 9:49 AM EST): Neuropathy stable and continue neurontin. Assessment & Plan (01/12/2024 9:44 AM EDT): Neuropathy stable and continue neurontin. Primary osteoarthritis of knees, ggosumopw53/10/2024nnual physical exam 07/23/2023 Assessment & Plan (07/15/2024 [...] daily Aspirin therapy. DDD (degenerative disc disease), bcwqbh9606/26/2023 Assessment & Plan (01/12/2025 9:43 AM EDT): Pain stable and follow with pain management. Assessment & Plan (01/12/2024 9:44 AM EDT): Pain stable and follow with pain management. Dwhvzlvrkjta85/14/2023 Assessment & Plan (07/15/2024 9:51 AM EST): Due for labs. Arthritis, gouty108/27/2022 Assessment & Plan (01/12/2025 9:43 AM EDT): No flares and continue allopurinol. Assessment & Plan (01/12/2024 9:43 AM EDT): No flares and continue allopurinol. Male aneqkdocinok66/14/2023NAFL (nonalcoholic fatty liver)06/26/2023lass 2 severe obesity due [...] with hyperglycemia, without long-term current use of tmspojt3906/26/2023 Assessment & Plan (01/12/2025 9:44 AM EDT): [...] Stick to ADA diet and limit carbs. Ucrrcbphsazu29/03/2023ge-related nuclear cataract of both eyes03/10/2023 Resolved Problems ProblemNoted DateDiagnosed DateResolved DateAbscess of abdominal wall10/13/2024 01/12/2025 Assessment & Plan (10/13/2024 1:51 PM EDT): Recent abscess but improved after drainage. Use heat PRN. Treat with bactrim. Cover with neosporin. Encounters DateTypeDepartmentCare XlcqBthhrznzehn16/24/2025Refill [facility] [address] [place] [address] Tulio Madrid MD 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)from Last 3 Months Family History Medical HistoryRelationNameCommentsCancerFatherDiabetesFatherHypertensionFather DiabetesMotherHypertensionMotherRelationNameStatusCommentsFatherMother Social History Tobacco UseTypesPacks/DayYears UsedDateSmoking Tobacco: NeverSmokeless Tobacco: Never Tobacco Cessation:Counseling Given: Not Answered Sex and Gender InformationValueDate RecordedSex Assigned at BirthNot on file Legal LkcZiea6309/25/2022 7:24 PM EDTGender IdentityNot on fileSexual Orientation Not on file Last Filed Vital Signs Vital SignReadingTime TakenCommentsBlood Qfidanhb074/8407 8:53 AM EDT Lsuzh672901/12/2025 8:53 AM VAJBfofukvidgc08.2 ??C (97.1 ??F)01/12/2025 8:53 AM EDTRespiratory Yibt067901/12/2025 8:53 AM EDTOxygen Oxxfphygcm64%01/12/2025 8:53 AM EDTInhaled Oxygen Concentration--Deynwo821 kg (293 lb)01/12/2025 8:53 AM EDT Pdvrgm326 cm (6' 2 )01/12/2025 8:53 AM EDTBody Mass Index37.62001/12/2025 8:53 AM EDT Plan of Treatment Health MaintenanceDue DateLast DoneCommentsCT Wriibjflaust00[birth year]09/1956FIT-DNA 1955FIT1955FOBT1955 9394Izejjfbdhoxyq87/09/1956Pneumococcal Vaccine: 65+ Years (2 of 2 - PCV)OVID-19 Vaccine (2024- season)/, 04/20/2023, 04/20/2023, Additional history existsInfluenza Vaccine (#1)/01/2024, 04/12/2023, 04/17/2022, Additional history eyeadlEmffxzordlj75/02/202701/08/2016Colorectal Cancer Gezufigjz55/02/2027 Insurance Care Teams Team MemberRelationshipSpecialtyStart DateEnd Date Tulio Madrid MD [facility] - [facility]01/12/24
--- OUTSIDE RECORDS SUMMARY | 2025-05-27 09:31 | XMS_ITS | Encounter Summary ---
Author Organization [facility] Address [address] [place] [address] Care Team Providers Care Topper Press Operator Automatic Name Role Phone Tulio Madrid MD Primary Care Provider [phone] Encounter Details DateTypeDepartmentCare Team (Latest Contact Info)Noavknsaxks82/16/2024Clinisync Result Encounter [facility] External Department Unsolicited Provider, Generic External Data Social History Tobacco UseTypesPacks/DayYears UsedDateSmoking Tobacco: NeverSmokeless Tobacco: NeverSex and Gender InformationValueDate RecordedSex Assigned at BirthNot on fileLegal PzbCssp4609/25/2022 7:24 PM EDTGender IdentityNot on fileSexual OrientationNot on filedocumented as of this encounter Plan of Treatment Not on file documented as of this encounter Procedures Procedure NamePriorityDate/TimeAssociated DiagnosisCommentsCA ECHO DOPPLER LGDYKOPJ57/16/2024 5:49 PM EST documented in this encounter Results * CA ECHO DOPPLER COMPLETE (06/28/2024 5:49 PM EST)Anatomical RegionLaterality ModalityOtherSpecimen (Source)Anatomical Location / LateralityCollection Method / VolumeCollection TimeReceived Time06/28/2024 5:49 PM EST Narrative 06/28/2024 5:50 PM EST [facility] ?[address] ? [place] [address] ? Cardiology Report ? Signed ? Patient: CORNELIA,WARNER C ?MR#: [id number] ?? : 1955 ?Acct:[id number] ?? Age/Sex: 68 / M ?ADM Date: 12/16/24 ?? Loc: CARD ? Attending Dr: Ken Mercer M.D. ? Ordering Physician: Ken Mercer M.D. ?? Date of Service: 06/28/24 ?? Procedure(s): CA echo doppler complete ?? Accession Number(s): [id number] ? cc: Ken Mercer M.D.; Tulio Madrid M.D. ? Patient Name: ? WARNER CORNELIA ? MR#: [id number] ? : 1955 ? Exam Date: 06/28/2024 [...] 1750 ? DD/ 1749 ? TD/TT: ? Guide Plant: Procedure Note Radiology, Radiologist, MD - 06/28/[address] [address] Cardiology Report Signed Patient: WARNER LOCKE CMR#: [id number] : 7Acct:[id number] Age/Sex: 68 / MADM Date: 06/28/24 Loc: CARD Attending Dr: Ken Mercer M.D. Ordering Physician: Ken Mercer M.D. Date of Service: 06/28/24 Procedure(s): CA echo doppler complete Accession Number(s): [id number] cc: Ken Mercer M.D.; Tulio Madrid M.D. Patient Name: WARNER LOCKE MR#: [id number] : 1955 Exam Date: 06/28/2024 Ordering Doctor: DR Kne Mercer M.D. ECHOCARDIOGRAM REPORT PROCEDURE: CA ECHO [...] 17:49 Dictated By: SCOUT MCMANUS Signed By:06/28/24 1214 DD/ 7462 TD/TT: Guide Plant: Authorizing ProviderResult TypeResult StatusGeneric External Data Provider CLINISYNC IMAGINGFinal Result documented in this encounter Visit Diagnoses Not on filedocumented in this encounter Care Teams Team MemberRelationshipSpecialtyStart DateEnd Date Tulio Madrid MD PCP - GeneralFamily Medicine01/12/24documented as of this encounter
--- OUTSIDE RECORDS SUMMARY | 2025-05-27 09:31 | XMS_ITS | Encounter Summary ---
Author Organization [facility] Address [address] [place] [address] Care Team Providers Care Pre Owned Sales Manager Name Role Phone Tulio Madrid MD Unavailable Tulio Madrid MD Primary Care Provider [phone] Encounter Details DateTypeDepartmentCare Team (Latest Contact Info)Lbmycnzobpq64/05/2024Clinisync Result Encounter [facility] External Department Unsolicited Provider, Generic External Data Social History Tobacco UseTypesPacks/DayYears UsedDateSmoking Tobacco: NeverSmokeless Tobacco: NeverSex and Gender InformationValueDate RecordedSex Assigned at BirthNot on fileLegal EamGtda9209/25/2022 7:24 PM EDTGender IdentityNot on fileSexual OrientationNot [...] EST Narrative 05/18/2024 6:56 AM EST The [facility] ?[address] ? [place] [address] ?XRay Report ? Signed ? Patient: CORNELIA,CARLOS C ?MR#: [id number] ?? : 1955 ?Acct:[id number] ?? Age/Sex: 68 / M ?ADM Date: 11/04/24 ?? Loc: RAD ? Attending Dr: Liz MARTELL ? Ordering Physician: Liz Hernandez ?? Date of Service: 05/17/24 ?? Procedure(s): XR abdomen 1V ?? Accession Number(s): [id number] ? cc: Tulio Madrid M.D.; Liz Hernandez ? [facility] ? [address] ? [place] [address] ? Patient Name: ?? CARLOS LOCKE ? MRN: [facility]:[id number] ? date: 1955 ?Sex: M ?? Assigned Patient Location: RAD ?? Current Patient Location: ? Accession/Order Number: [id number] ?? Exam Date: 05/17/2024 ??08:50 ?Report Date: [...] 0656 ? DD/ 06 ? TD/TT: ? Compliance Program Manager: Procedure Note Radiology, Radiologist, MD - 05/18/[address] [address] XRay Report Signed Patient: CARLOS LOCKE CMR#: [id number] : 7Acct:[id number] Age/Sex: 68 / MADM Date: 05/17/24 Loc: RAD Attending Dr: Liz MARTELL Ordering Physician: Liz Hernandez Date of Service: 05/17/24 Procedure(s): XR abdomen 1V Accession Number(s): [id number] cc: Tulio Madrid M.D.; Liz Hernandez [address] [address] Patient Name: CARLOS LOCKE MRN: [facility]:[id number] date: 1955 Sex: M Assigned Patient Location: RAD Current Patient Location: Accession/Order Number: [id number] Exam Date: 05/17/2024 08:50 Report Date: 05/18/2024 [...] Racheal Graves M.D. Signed By:05/18/2456 DD/ TD/TT: Compliance Program Manager: Authorizing ProviderResult TypeResult StatusGeneric External Data Provider CLINISYNC IMAGINGFinal Result documented in this encounter Visit Diagnoses Not on filedocumented in this encounter Care Teams Team MemberRelationshipSpecialtyStart DateEnd Date Tulio Madrid MD [address] [place] [address] FORREST - Wilfrid Yoewdrlexq16/1/ Tulio Madrid MD [address] [place] [address] [facility] - [facility]01/12/24documented as of this encounter
--- OUTSIDE RECORDS SUMMARY | 2025-05-27 09:31 | XMS_ITS | Patient Health Record ---
Author Organization [facility] [place] Address [address] [place] [address] Care Team Providers Care Dobby Loom Weaver Name Role Phone None, Unknown or Primary Care Provider Unavailab James Gutierrez Unavailable [phone] Allergies Allergen (clinical drug ingredient) Drug/Non Drug Allergy documented on EMR Reaction Allergy Type Onset Date Status oxycodone Oxycodone Unknown Drug Allergy Active Results Component Value Reference Range Notes PROF CHEM 8 (BAS METB) Reviewed date:08/24/2024 12:52:49 PM Interpretation: Performing Lab: Notes/Report: [facility] , Sodium 143 136-145 mmol/L Potassium4.73.5-5.1 mmol/IMsitzosj87151-072 mmol/LCarbon Ktsrjji80.421.0-32.0 mmol/LAnion Gap14.7Eqrcpzu53314-366 mg/dLBlood Urea Fpcpvznq97.07.0-18.0 mg/dL Creatinine1.620.70-1.30 mg/dLEstimated GFR ( Dceyscc00>=60 mL/min/1.73m 2 Estimated GFR (Non- Ame43>=60 mL/min/1.73m 2BUN Creatinine Ratio17.3 Calcium7.78.5-10.1 mg/dLPerforming Lab:see noteML - The [facility] LBCBC AUTO DIFF Reviewed date:08/24/2024 12:52:49 PM Interpretation: Performing Lab: Notes/Report: [facility] ,White Blood Count13.84.0-11.0 10 3/uLRed Blood Count3.504.70-6.10 10 6/uL Lznaqamlom40.514.0-18.0 g/qYObpeqynlmx55.842.0-54.0 %Mean Corpuscular Juyiev32.4 80.0-94.0 fLMean Corpuscular Szlvkafadz79.925.9-34.0 pgMean Corpuscular HGB Conc 33.029.9-35.2 g/dLRed Cell Distribution Width13.711.0-15.0 %Platelet Xkqzd504 150-450 10 3/uLMean Platelet Volume9.29.5-13.5 fLNeutrophils Percent Auto81.1 43.0-75.0 %Lymphocytes Percent Auto8.920.5-60.0 %Monocytes Percent Auto9.11.7- 12.0 %Eosinophils Percent Auto0.10.9-7.0 %Basophils Percent Auto0.10.2-2.0 % Immature Granulocytes Pct Auto0.70.0-0.5 %Neutrophils Absolute Auto11.21.4-6.5 10 3/uLLymphocytes Absolute Auto1.21.2-3.8 10 3/uLMonocytes Absolute Auto1.30.3- 0.8 10 3/uLEosinophils Absolute Auto0.00.0-0.7 10 3/uLBasophils Absolute Auto0.0 0.0-0.1 10 3/uLImmature Granulocytes Abs Auto0.090.00-0.03 10 3/uLPerforming Lab:see noteML - The [facility] Reason For Referral No Information Medications [...] due t o type 2 diabetes mellitus (135052472) Type 2 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) ActiveconfirmedProblemFoot ulcer due to type 2 diabetes mellitus (2660796100448) Type 2 diabetes mellitus with foot ulcer (E11.621)ActiveconfirmedProblemAcquired hallux valgus (82742208)Hallux valgus (acquired), left foot (M20.12)Active confirmedProblemAcquired hallux rigidus (1860773)Hallux rigidus, left foot (M20.22)ActiveconfirmedProblemPseudarthrosis after fusion or arthrodesis (215483910)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)Activeconfirmed ProblemPain associated with internal prosthetic device (disorder) (838512372) Pain due to internal orthopedic prosthetic devices, implants and grafts, initial encounter (T84.84XA)ActiveconfirmedProblemHistory of arthrodesis (261585876) Arthrodesis status (Z98.1)ActiveconfirmedProblemAcquired hallux rigidus (7908002)Acquired hallux rigidus of left foot (M20.22)ActiveconfirmedProblem Delayed healing of surgical wound (finding) (062174586)Delayed surgical wound healing (T81.89XA)ActiveconfirmedProblemPolyneuropathy due to type 2 diabetes mellitus (323619895)Diabetes mellitus with polyneuropathy (E11.42)Active confirmedProblemChronic foot ulcer, [...] ACCESS PPO PLUS LOCAL PLAN [address] [place] [address] [id number] Ilya Kanwal Spouse - patient is the spouse of the insured 3 [place] [id number] Part A OnlyaLnce Carab[place]of - patient is the insured Medical (General) History Medical History History ICD Code Diabetes due to underlying condition w d iabetic neurop, unsp E08.40 High cholesterol E78.00 Gout M10.9 Peripheral neuropathy G62.9 Chronic pain G89.29 Hypertension I10 Surgical History Surgery Date(Month/Year) left 1st MPJ fusion, hallux interphalang eal joint arthroplasty 10/21/2022 back injections
--- OUTSIDE RECORDS SUMMARY | 2025-05-27 09:31 | XMS_ITS | Encounter Summary ---
Author Organization [facility] Address [address] [place] [address] Care Team Providers Care Data Processing Systems Project Planner Name Role Phone Tulio Madrid MD Primary Care Provider [phone] Tulio Madrid MD Unavailable Tulio Madrid MD Primary Care Provider [phone] Encounter Details DateTypeDepartmentCare Team (Latest Contact Info)Ssgmtoezyte43/23/2023Clinisync Result Encounter [facility] External Department Unsolicited Provider, Generic External Data Social History Tobacco UseTypesPacks/DayYears UsedDateSmoking Tobacco: NeverSmokeless Tobacco: NeverSex and Gender InformationValueDate RecordedSex Assigned at BirthNot on fileLegal KwlMslp7809/25/2022 7:24 PM EDTGender IdentityNot on fileSexual OrientationNot [...] EST Narrative 07/05/2023 1:54 AM EST [facility] ?[address] ? [place] [address] ? CT Scan Report ? Signed ? Patient: CORNELIA,WARNER C ?MR#: [id number] ?? : 1955 ?Acct:[id number] ?? Age/Sex: 67 / M ?ADM Date: 12/22/23 ?? Loc: CT ? Attending Dr: James Raya D.P.M. ? Ordering Physician: James Raya D.P.M. ?? Date of Service: 07/04/23 ?? Procedure(s): CT foot LT wo con ?? Accession Number(s): [id number] ? cc: Tulio Madrid M.D. ? [facility] ? [address] ? [place] [address] ? Patient Name: ?? WARNER Farrar CORNELIA ? MRN: [facility]:[id number] ? date: 1955 ?Sex: M ?? Assigned Patient Location: CT ?? Current Patient Location: ? Accession/Order Number: [id number] ?? Exam Date: 07/04/2023 ??10:18 ?Report Date: [...] 0154 ? DD/ 0152 ? TD/TT: ? [employer] Membership Sales Agent: Procedure Note Radiology, Radiologist, - 07/05/2023 [place] [address] CT Scan Report Signed Patient: WARNER LOCKE CMR#: [id number] : 1955cct:[id number] Age/Sex: 67 / MADM Date: 07/04/23 Loc: CT Attending Dr: James Raya D.P.M. Ordering Physician: James Raya D.P.M. Date of Service: 07/04/23 Procedure(s): CT foot LT wo con Accession Number(s): [id number] cc: Tulio Madrid M.D. The [place] [address] Patient Name: WARNER LOCKE MRN: [id number] date: 1955 Sex: M Assigned Patient Location: CT Current Patient Location: Accession/Order Number: [id number] Exam Date: 07/04/2023 10:18 Report Date: 07/05/2023 [...] Kenny M.D. Signed By:07/05/23153 DD/ 1 TD/TT: [employer] Sales Agent: Authorizing ProviderResult TypeResult StatusGeneric External Data Provider CLINISYNC IMAGINGFinal Result documented in this encounter Visit Diagnoses Not on filedocumented in this encounter Care Teams Team MemberRelationshipSpecialtyStart DateEnd Date Tulio Madrid MD PCP - GeneralFamily Medicine Tulio Madrid MD [address] [place] [address] [facility] Tulio Madrid MD [address] [place] [address] [facility]01/12/24documented as of this encounter
--- OUTSIDE RECORDS SUMMARY | 2025-05-27 09:32 | XMS_ITS | Encounter Summary ---
Author Organization [facility] Address [address] [place] [address] Care Team Providers Care College Or University Business Manager Name Role Phone Tulio Madrid MD Unavailable Tulio Madrid MD Primary Care Provider [phone] Encounter Details DateTypeDepartmentCare Team (Latest Contact Info)Umnwcxxfbdw96/01/2024Clinisync Result Encounter [facility] External Department Unsolicited Provider, Generic External Data Social History Tobacco UseTypesPacks/DayYears UsedDateSmoking Tobacco: NeverSmokeless Tobacco: NeverSex and Gender InformationValueDate RecordedSex Assigned at BirthNot on fileLegal FccJzzo9109/25/2022 7:24 PM EDTGender IdentityNot on fileSexual OrientationNot [...] EDT Narrative 02/12/2024 6:26 AM EDT [facility] ?[address] ? [place] [address] ?XRay Report ? Signed ? Patient: CORNELIA,WARNER C ?MR#: [id number] ?? : 1955 ?Acct:[id number] ?? Age/Sex: 68 / M ?ADM Date: 07/31/24 ?? Loc: EC ? Attending Dr: James Raya D.P.M. ? Ordering Physician: James Raya D.P.M. ?? Date of Service: 02/11/24 ?? Procedure(s): XR foot LT min 3V ?? Accession Number(s): [id number] ? cc: James Raya D.P.M.; Tulio Madrid M.D. ? [facility] ? [address] ? [place] [address] ? Patient Name: ?? WARNER Farrar CORNELIA ? MRN: [facility]:[id number] ? date: 1955 ?Sex: M ?? Assigned Patient Location: EC ?? Current Patient Location: ? Accession/Order Number: [id number] ?? Exam Date: 02/11/2024 ??10:36 ?Report Date: [...] ?02/12/24625 ? DD/ 3 ? TD/TT: ? Conference Planner: Procedure Note Radiology, Radiologist, MD - 02/12/[address] [address] XRay Report Signed Patient: WARNER LOCKE CMR#: [id number] : 1955cct:[id number] Age/Sex: 68 / MADM Date: 02/11/24 Loc: EC Attending Dr: James Raya D.P.M. Ordering Physician: James Raya D.P.M. Date of Service: 02/11/24 Procedure(s): XR foot LT min 3V Accession Number(s): [id number] cc: James Raya D.P.M.; Tulio Madrid M.D. [place] [address] Patient Name: WARNER LOCKE MRN: [id number] date: 1955 Sex: M Assigned Patient Location: EC Current Patient Location: Accession/Order Number: [id number] Exam Date: 02/11/2024 10:36 Report Date: 02/12/2024 [...] Kenny M.D. Signed By:02/12/24625 DD/ 3 TD/TT: Conference Planner: Authorizing ProviderResult TypeResult StatusGeneric External Data Provider CLINISYNC IMAGINGFinal Result documented in this encounter Visit Diagnoses Not on filedocumented in this encounter Care Teams Team MemberRelationshipSpecialtyStart DateEnd Date Tulio Madrid MD [address] [place] [address] [facility] Tulio Madrid MD [address] [place] [address] [facility]/12/24documented as of this encounter
--- NOTE | 2025-05-27 09:34 | MR_ITS ---
The [address] [address] Patient Name: CARLOS LOCKE MRN: [id number] date: 1955 Sex: M Assigned Patient Location: MRI Current Patient Location: [facility] Accession/Order Number: [id number] Exam Date: 05/27/2025 10:00 Report Date: 05/27/2025 23:52 At the request of: EPHRAIM BERKOWITZ NP Procedure: MR lumbar spine wo con MR lumbar spine wo con 05/27/2025 10:40 AM SIGNS AND SYMPTOMS: ^note modic changes ^lumbar spondylosis, lumbar disc disease PROTOCOL: Multiplanar multisequence MR images of the lumbar spine without IV contrast COMPARISON: None. FINDINGS: The bones of the lumbar spine are in anatomic alignment. There is preservation of vertebral body heights. There is disc desiccation and mild disc height loss throughout the lumbar spine. Benign-appearing hemangiomas are present at T12, L2, and L5. The conus terminates at the superior endplate of the L2 vertebral body level. No epidural or paraspinous fluid collection is appreciated. At T12-L1: There is a normal disc, central canal, and neural foramen. At L1-L2: There is a normal disc, central canal, and neural foramen. At L2-L3: There is a normal disc, central canal, and neural foramen. At L3-L4: There is a broad-based disc bulge. There is facet hypertrophy with ligamentum flavum thickening. Small bilateral facet effusions are present. There is mild spinal canal narrowing with mild bilateral neural foraminal narrowing. At L4-L5: There is a broad-based disc bulge with facet hypertrophy and ligamentum flavum thickening. There is mild spinal canal stenosis with mild bilateral neural foraminal narrowing. At L5-S1: There is a broad-based disc bulge with facet hypertrophy. There is mild left neural foraminal narrowing without significant spinal canal stenosis. MR/MR lumbar spine wo con IMPRESSION: At L3-L4: There is a broad-based disc bulge. There is facet hypertrophy with ligamentum flavum thickening. Small bilateral facet effusions are present. There is mild spinal canal narrowing with mild bilateral neural foraminal narrowing. At L4-L5: There is a broad-based disc bulge with facet hypertrophy and ligamentum flavum thickening. There is mild spinal canal stenosis with mild bilateral neural foraminal narrowing. At L5-S1: There is a broad-based disc bulge with facet hypertrophy. There is mild left neural foraminal narrowing without significant spinal canal stenosis. Impression dictated by: Mo Duff M.D. 05/27/2025 11:52 PM Dictation Location: [place] [address] Electronically authenticated by: [id number] Y Date: 05/27/2025 23:52
== END 2025-05-27 09:28 | disposition home or self-care (01) ==
LOC: MRI 09:27
PROVIDERS: PCP Family Medicine; Visit Provider Nurse Practitioner
DX: M47.816 Spondylosis without myelopathy or radiculopathy, lumbar region (principal); M51.360 Other intervertebral disc degeneration, lumbar region with discogenic back pain only
CPT/HCPCS: 72148

== ENCOUNTER 2025-06-08 10:01 | Outpatient (OUT) | payer MEDICARE, OTHER, SELFPAY ==
--- OUTSIDE RECORDS SUMMARY | 2024-07-27 04:00 | XMS_ITS ---
Author Organization The [facility] in [place] Address [address] [place] [address] Care Team Providers Care Medical Staff Services Coordinator Name Role Phone None, Unknown or Primary Care Provider Unavailab marylou NealevanJames [phone] REASON FOR VISIT -6 Month Follow Up- Encounters Encounter Location Date Provider Diagnosis [facility] (PODIATRY) [address] [place] [address] [place] [address] 07/27/2024 James Raya Left foot pain M79.672 Assessments Encounter Date Diagnosis (ICD Code) Assessment Notes Treatment Notes Treatment Clinical Notes Section Notes 07/27/2024 Left foot pain (ICD-10 - M79.672 ) Plan Of Treatment Pending Test Test Name Order Date XR Foot LT (3 views) * 07/27/2024 Progress Notes * Warner LOCKE CDOB: [birth year] (69 yo M)Acc No.[id number]:07/27/2024 UNLOCKED PROGRESS NOTE Follow Up Patient: Etelvina BOND Warner Farrar :?James Raya DPVirgilio, MSDOB:1955???Age: 68 Y???Sex:MaleDate:07/27/2024Phone:[phone]:JARETH DUNCAN [id number]:Unknown or None Subjective: * Chief Complaints: * 1 . -6 Month Follow Up-. * Medical History: Objective: * Vitals: Assessment: * Assessment: 1.?Left foot pain - M79.672??? Plan: * Treatment: ?Imaging: XR Foot LT (3 views) * * * Electronic signature of James Raya DPM on 06/08/2025 at 10:05 AM ESTSign off status: PendingVisit Status:?CANC (Cancelled) * Provider: Supriya Raya DPM, MS Date: 0 07/27/2024 Generated for Printing/Faxing/eTransmitting on:?06/08/2025 10:05 AM EST
--- OUTSIDE RECORDS SUMMARY | 2024-08-23 09:00 | XMS_ITS ---
Author Organization [facility] Address [address] [place] [address] Care Team Providers Care Assistant Elementary Teacher Name Role Phone Tulio Madrid Primary Care Provider Julissa chris Daniele Valencia Unavailable [phone] REASON FOR VISIT 1ST POST OP LEFT TKA 08/09 Problems Problem Type SNOMED Code ICD Code Onset Dates Problem Status W/U Status Risk Notes Problem History of musculosk eletal operation (999452418) Aftercare following joint replacement surgery (Z47.1) ActiveconfirmedProblemArtificial knee joint present (334489247823)Presence of left artificial knee joint (Z96.652)Activeconfirmed Encounters Encounter Location Date Provider Diagnosis [facility] Office [address] [place] [address] [place] [address] 08/23/2024 Daniele Valencia Aftercare following joint replacement [...] Date SCC- KNEE 2 VIEW LEFT - 29793 08/23/2024 Progress Notes * CARLOS LOCKE CDOB: [birth year] (69 yo M)Acc No.[id number]:08/23/2024 Progress Notes Patient: Etelvina BONDCARLOS :?Daniele Valencia, DODOB:1955???Age:69 Y ???Sex:MaleDate:08/23/2024Phone:[phone]:[address], [id number]:Tulio Madrid Subjective: * Chief Complaints: * 1 . 1ST POST OP LEFT TKA 08/09. * Medical History: Objective: * Vitals: Assessment: * Assessment: 1.?Aftercare following joint replacement surgery - Z47.1 (Primary)???2.?Presence of left artificial knee joint - Z96.652??? Plan: * Treatment: ?Imaging: SCC- KNEE 2 VIEW LEFT - 405377.?Presence of left artificial knee joint?Imaging: SCC- KNEE 2 VIEW LEFT - 22111 Forms: * Images: * Electronic signature of Daniele Valencia DO on 06/08/2025 at 10:06 AM ESTSign off status: Pending * Provider: Noa Valencia DO Date: 0 08/23/2024 Generated for Printing/Faxing/eTransmitting on:?06/08/2025 10:06 AM EST
--- OUTSIDE RECORDS SUMMARY | 2024-11-22 08:10 | XMS_ITS ---
Author Organization [facility] Address [address] [place] [address] Care Team Providers Care Drier Take Off Tender Name Role Phone Tulio Madrid Primary Care Provider Daniele Ruffin Unavailable [phone] REASON FOR VISIT LEFT KNEE RECHECK DOS 02.10 Encounters Encounter Location Date Provider Diagnosis [facility] Office [address] [place] [address] [place] [address] 11/22/2024 Daniele Valencia Aftercare following joint replacement surgery Z47.1 Assessments Encounter Date Diagnosis (ICD Code) Assessment Notes Treatment Notes Treatment Clinical Notes Section Notes 11/22/2024 Aftercare following joint replac ement surgery (ICD-10 - Z47.1) Plan Of Treatment Pending Test Test Name Order Date SCC- KNEE 2 VIEW LEFT - 79193 11/22/2024 Progress Notes * CARLOS LOCKE CDOB: [birth year] (69 yo M)Acc No.[id number]:11/22/2024 Patient:?CARLOS LOCKE :?Daniele Valencia, DODOB:1955???Age:69 Y ???Sex:MaleDate:11/22/2024Phone:[phone]:JARETH DUNCAN [id number]:Tulio Madrid Subjective: * Chief Complaints: * 1 . LEFT KNEE RECHECK DOS 02.10. * Medical History: Objective: * Vitals: Assessment: * Assessment: 1.?Aftercare following joint replacement surgery - Z47.1 (Primary)??? Plan: * Treatment: ?Imaging: SCC- KNEE 2 VIEW LEFT - 91546 * Procedure Codes: 7 3560 X-ray Knee, 2 view Forms: * Images: * Electronic signature of Daniele Valencia DO on 06/08/2025 at 10:05 AM ESTSign off status: Pending * Provider: Noa Valencia DO Date: 0 11/22/2024 Generated for Printing/Faxing/eTransmitting on:?06/08/2025 10:05 AM EST
--- NOTE | 2025-06-08 10:04 | US_ITS ---
The [address] [address] Patient Name: CARLOS LOCKE MRN: [id number] date: 1955 Sex: M Assigned Patient Location: US Current Patient Location: US Accession/Order Number: [id number] Exam Date: 06/08/2025 10:05 Report Date: 06/08/2025 11:00 At the request of: ELVIRA TEJADA NP Procedure: US renal BI BILATERAL RENAL AND BLADDER ULTRASOUND CLINICAL HISTORY: Follow-up kidney stones COMPARISON: CT 11/01/2020 and KUB 05/25/2025 Estimation of renal size is approximately 10.8 cm on the right and 11.2 cm on the left. Multiple echogenic foci with twinkle artifact are seen at the kidneys on both sides suggesting stones. The largest on the right at the midpole measuring 11 x 9 x 6 mm and inferior pole measuring 14 x 6 x 13 mm. The largest on the left are at the inferior pole measuring 10 x 6 x 7 mm in midpole measuring 8 x 4 x 6 mm. There is a small 2.2 cm left lower pole renal cyst. No hydronephrosis is seen on the left though there is mild hydronephrosis on the right. There is no perinephric fluid. The liver is echogenic suggesting fatty infiltration. The urinary bladder is partially distended with a volume of 171 mL. No contour or intraluminal abnormalities are seen. US/US renal BI IMPRESSION: MILD RIGHT HYDRONEPHROSIS. BILATERAL NEPHROLITHIASIS AND LEFT RENAL CYST. INCIDENTAL FATTY LIVER Impression dictated by: Brunilda Rogers M.D. 06/08/2025 11:00 AM Dictation Location: [place] [address] Electronically authenticated by: [id number] Y Date: 06/08/2025 11:00
--- OUTSIDE RECORDS SUMMARY | 2025-06-08 10:05 | XMS_ITS | Clinical Summary ---
Author Organization [facility] Address [address] [place] [address] Care Team Providers Care International First Officer Name Role Phone Tulio Madrid MD Primary Care Provider [phone] Allergies Active AllergyReactionsCriticalityNoted WvziHvvyoxenDalfyylhsWlbnn98/18/2023 Oxycodone-Ekhfwsveoftdj64/18/2023 Medications MedicationSigDispense QuantityRefillsLast FilledStart DateEnd DateStatus atorvastatin (Lipitor) 20 mg tablet atorvastatin 20 mg tablet TAKE 1 TABLET BY MOUTH EVERYDAY AT PUXINMN4904/25/2020Active colchicine 0.6 mg tablet Take 0.6 mg [...] 2 TABLETS BY MOUTH EVERY DAY AT ERMXMVW2207/11/2022ctive Active Problems ProblemNoted DateDiagnosed DateBenign prostatic hyperplasia with urinary /18/2023History of colonic poincp8107/31/2022Hydronephrosis with renal and ureteral calculus cpuibqltikt48/18/2023Liver mass07/31/2022Long term current use of anticoagulant qkuulmx7207/31/2022Neoplasm of uncertain behavior of liver and biliary eiwisvzg24/18/4597Kvxvrfnm90/18/3679Lbifmr01/31/2022ack pain 12/11/2021iabetes ieomzrmh89/31/3205Fzno31/31/2022History of pulmonary embolism 12/11/2021 Assessment & Plan (07/31/2022 2:19 PM EST): Currently stable History of severe acute respiratory syndrome coronavirus 2 (SARS-CoV-2) disease 12/11/20210178Vxbtdhqjnzpcqw75/31/2022 Assessment & Plan (07/31/2022 2:17 PM EST): Lipid abnormalities are currently well controlled with lipitor 20 mg- LDL currently 58.6 on labs 07/26/2022 Liver function 04/2022 were normal Hypertensive afujamro02/31/2022 Assessment & Plan (07/31/2022 2:18 PM EST): Hypertension is well controlled 114/64 Continue lisinopril 5 mg Recent CR elevated 1.59- his cr typically has been 1.2-1.4 - He has been on antibiotics for Lt foot infection- DFU with wound care. Oudvrxi7912/11/2021bstructive sleep apnea wwarfmbq84/31/2022 Family History Medical HistoryRelationNameCommentsStrokeFatherRelationNameStatusCommentsFather Social History Tobacco UseTypesPacks/DayYears UsedDateSmoking Tobacco: NeverSmokeless Tobacco: Never Tobacco Cessation:Counseling Given: Not Answered Alcohol UseStandard Drinks/WeekCommentsYes0 (1 standard drink = 0.6 oz pure alcohol)occasionalUT Safety & EnvironmentAnswerDate RecordedFear of Current or Ex-PartnerNot on file09/04/2023Emotionally AbusedNot on file09/04/2023hysically AbusedNot on file09/04/2023Sexually AbusedNot on file09/04/2023hysically or Sexually AbusedNot on file09/04/2023Sex and Gender InformationValueDate Recorded Sex Assigned at BirthNot on fileLegal TmxEznb2901/09/2022 9:30 PM EDTGender IdentityNot on fileSexual OrientationNot on file Last Filed Vital Signs Vital SignReadingTime TakenCommentsBlood Eidxidxq577/6401 1:39 PM EST Dwkbm627107/31/2022 1:39 PM ESTTemperature--Respiratory Rate--Oxygen Iypfwaokqt18% 07/31/2022 1:39 PM ESTInhaled Oxygen Concentration--Peythm564 kg (308 lb) 07/31/2022 1:39 PM NDQWdqzja908.4 cm (6' 1 )07/31/2022 1:39 PM ESTBody Mass Index40.64007/31/2022 1:39 PM EST Plan of Treatment Health MaintenanceDue DateLast DoneCommentsCT Isvqecyubzli78/09/1956Colonoscopy 1955Colorectal Cancer Posbpnmhx27/09/1957Diabetes: Hemoglobin A1C 1955FIT-DNA1956FIT1956FOBT1956Medicare Annual Wellness (AWV)1955 5948Cnbewmrqouton89/09/1957Diabetes: Retinopathy Rlbwhcppr61/09/1967 Depression Aepymbzbt86/09/1969Diabetes: Urine Protein Tnuvclxzo47/09/1976Adult Qjjchll8108/22/1978Zoster Vaccines (1 of 2)2006Fall Risk Mfkiplyjn23/09/2022 Pneumococcal Vaccine: 50+ Years (2 of 2 [...] Date Tulio Madrid MD [address] [place] [address] PCP - [facility]07/05/24
--- OUTSIDE RECORDS SUMMARY | 2025-06-08 10:05 | XMS_ITS | Clinical Summary ---
Author Organization [facility] Address [address] [place] [address], [address] [place] [address] Care Team Providers Care Inspector Brake Lining Name Role Phone Tulio Madrid MD Primary Care Provider + Social History Tobacco UseTypesPacks/DayYears UsedDateSmoking Tobacco: Never AssessedSex and Gender InformationValueDate RecordedSex Assigned at BirthNot on fileLegal Sex Male01/31/2025 12:58 PM EDTGender IdentityNot on fileSexual OrientationNot on file Plan of Treatment Health MaintenanceDue DateLast DoneCommentsDepression Aymcfr6608/22/1968Hepatitis C hcqilu7908/22/1974DTaP/Tdap/Td vaccine (1 - Tdap)08/22/19756797Aizsuq70/09/1997 Budagezjffx40/09/2002Colorectal Cancer Ecwjac8208/22/2001FIT/FOBT: Average risk 2001Fecal-DNA (Cologuard): Average risk2001Sigmoidoscopy/CT wekptfhaxgpm59/09/2002Shingles vaccine (1 of 2)2006Pneumococcal 50+ years Vaccine [...] Date Tulio Madrid MD [address] [place] [address] PCP - [facility]01/31/25
--- OUTSIDE RECORDS SUMMARY | 2025-06-08 10:05 | XMS_ITS | Patient Health Record ---
Author Organization [facility] Address [address] [place] [address] Care Team Providers Care Vac Press Operator Name Role Phone Tulio Madrid Primary Care Provider Daniele Ruffin Unavailable [phone] Akash Hall Unavailable [phone] Results Component Value Reference Range Notes XR Knee Standing AP Bilatera l (Not yet reviewed by provider) Interpretation: Performing Lab: Notes/Report: Patient Name: Carlos Locke EXAM: XR Knee Standing AP Bilateral XR KNEE LEFT (3 VIEWS) (Not yet reviewed by provider) Interpretation: Performing Lab: Notes/Report: EXAM: XR KNEE LEFT (3 VIEWS) Performed at: [address] [address] XR Knee Standing AP Bilatera l (Not [...] Notes/Report: Primary Insurance Company: [employer] Surgeon/Assist:ANTHONY/NEEDS ONESurgery [place] [facility] [place]: 08/09/2024 @ 9 AMHosp arrival time day of:7:00 AMSurgery End Time:12:00Procedure: LEFT TOTAL KNEE ARTHROPLASTYSpecial Equipment:BOWMAN AND NEPHEW VISIONEERC-Arm: YESDiagnosis:OSTEOARTHRITIS OF LEFT KNEEAdmission Type:OPAnesthesia Type/CPNB: GENERAL/ACYPGIqf00 HR OBSPost-op Appointment Date:08/23/24 @ 2 PMLatex AllergyNO [facility]/2024 @ [facility] Date/ Contracts Representative:ISMAEL RHistory & Physical Appointment Date/:07/26/24Pre-op labs/Chest Order:CBC WI,CMP,MRSA,UA WITH C AND S, URINE NICOTINE,CXR,EKGHad or have MRSA/Direct contact w MRSA pt/HCWNOHad dental problems/Yes-no/type:NO Reason For Referral Reason NO PRIOR AUTH REQUIR ED WILFRID...NOT SCHED...PLEASE PRECERT LEFT KNEE MRI WITH ASIA PROTOCOL AT [facility] Diagnosis 1 Primary osteoarthrit is of left knee (M17.12) Diagnosis 2 Pain in left knee (M 25.562) Referral Organization [facility] Referring Provider First Name Daniele Referring Provider Last Name Anthony Referring Provider Speciality Orthopedic Surgery Referred Organization [facility] Radiology Dept . Referred Provider Daniele Valencia Referred Address [address] [place] [address], Referred Provider Specialty Orthopedic S urgery Procedure 1 MRI Joint Lower Ext w/o Dye (29526) General Notes Ismael Mariee 2023 10:22:15 AM >Juan Alberto Amber 06/23/2024 03:49:25 PM > PENDING WITH [facility]. FORM AND CLINICALS FAXED. FORM IN CHART.Juan Alberto Amber 06/25/2024 08:14:25 AM > NO PRIOR AUTH REQUIRED PER FAX FROM [facility]. REF IN CHART. PER AVAILITY, [employer] IS ACTIVE OF 07/14/2022. FAXED TO [facility].Kodi Tricia 06/28/2024 06:56:53 AM >ORDERS FAXED Referral Priority Routine Reason APPROVED WILFRID... 08/09...PLEASE PRECERT LEFT TOTAL KNEE REPLACEMENT WITH BOWMAN AND NEPHEW AT [facility] Diagnosis 1 Primary osteoarthrit is of left knee (M17.12) Referral Organization [facility] Referring Provider First Name Daniele Referring Provider Last Name Anthony Referring Provider Speciality Orthopedic Surgery Referred Organization [facility] Referred Provider Daniele Valencia Referred Address [address] [place], [place],[address],[place] Referred Provider Specialty Orthopedic S urgery Procedure 1 Arthroplasty Knee To clare Med/Lat Compartments (18445) General Notes Ismael Mariee 2024 09:43:18 AM >, Bell Avendano 07/23/2024 12:38:24 PM > AUTH IS PENDING WITH [facility]. FORM AND CLINICALS WERE FAXED. FORM IN CHART.Juan Alberto Amber 07/26/2024 02:03:05 PM > AUTH WAS APPROVED PER [employer]. APPROVED DATES ARE FROM 07/23/2024-09/20/2024. AUTH #[id number]. AUTH IN CHART. PER AVAILITYWILFRID IS ACTIVE OF 07/14/2022. FAXED TO [facility]. Referral Priority Routine Medications Medication SIG (Take, [...] in the past year?Monthly or less (1 point)Luhyem6FykrwbyvffmuxtSecxcjmc Tobacco Control (Standard) Question Answer Notes Tobacco use: Nonsmoker Problems Problem Type SNOMED Code ICD Code Onset Dates Problem Status W/U Status Risk Notes Problem History of musculosk eletal operation (177033828) Aftercare following joint replacement surgery (Z47.1) ActiveconfirmedProblemPain of right knee region (finding) (983426273750436)Pain in right knee (M25.561)ActiveconfirmedProblemOsteoarthritis of knee (080065080) Primary osteoarthritis of left knee (M17.12)ActiveconfirmedProblemPain of left knee joint (finding) (414522645649656)Pain in left knee (M25.562)Activeconfirmed ProblemArtificial knee joint present (062187287458)Presence of left artificial knee joint (Z96.652)ActiveconfirmedProblemBilateral arthritis of knees (9632320831010241)Primary osteoarthritis of knees, bilateral (M17.0)Active confirmed Vital Signs Height 6'1 in 01/31/2025 Kkumrd749 lbs5BMI37.9901/31/2025 Encounters Encounter Location Date Provider Diagnosis [address] [address] 06/21/2024 Danielejavier Valencia Pain in right knee M25.561 ; Pain in left knee M25.562 and Primary osteoarthritis of left knee M17.[address] [address] 07/26/2024 Daniele Valencia Primary osteoarthrit is of left knee M17.12 [facility] [address] [place] [address] 08/23/2024 Daniele Valencia Primary osteoarthrit is of left knee M17.12 [facility] [address] [place] [address] 09/06/2024 Daniele Valencia Aftercare following joint replacement surgery Z47.1 and Presence of left artificial knee joint Z96.[address] [address] 10/04/2024 Daniele Valencia Aftercare following joint replacement surgery Z47.1 and Presence of left artificial knee joint Z96.652 [facility] [address] [place] [address] 12/20/2024 Daniele Valencia Aftercare following joint replacement surgery Z47.1 and Presence of left artificial knee joint Z96.652 [facility] [address] [place] [address] 01/31/2025 Danielejavier Valencia Aftercare following joint replacement surgery Z47.1 and Presence of left artificial knee joint Z96.652 [facility] [address] [place] [address] 06/08/2024 [facility] [place] [address]/26/2024 [place] [address] [place] [address]/04/2025Dylan MoclipsPrimary osteoarthritis of left knee M17.12 ; Presence of left artificial knee joint Z96.652 and Aftercare following joint replacement surgery Z47.1[facility] [place] [address]/Dylan MathewsAftercare following joint replacement surgery Z47.1[place] [address] [place] [address]/09/2024Dylan MathewsAftercare following joint replacement surgery Z47.1 Assessments Encounter Date Diagnosis (ICD Code) Assessment Notes Treatment Notes Treatment Clinical Notes Section Notes 06/21/2024 Pain in right knee (ICD-10 - M25 .561) Left knee ybmhzypotgtfpb93/09/2024ain in left knee (ICD-10 - M25.562)Left knee zzzybgjbjcwowd72/13/2025Primary osteoarthritis of left knee (ICD-10 - M17.12) Left knee fvkyarurhplger53/10/2025Primary osteoarthritis of left knee (ICD-10 - M17.12)08/23/2024Primary osteoarthritis of left knee (ICD-10 - M17.12)08/23/2024 Presence of left artificial knee joint (ICD-10 - Z96.652)08/26/2024ftercare following joint replacement surgery (ICD-10 - Z47.1)09/06/2024ftercare following joint replacement surgery (ICD-10 - Z47.1)Status post left total knee jdqgjkibflrq32/03/2025ftercare following joint replacement surgery (ICD-10 - Z47.1)10/04/2024ftercare following joint replacement surgery (ICD-10 - Z47.1) Status post left total knee spidefrhqgjr68/09/2025ftercare following joint replacement surgery (ICD-10 - Z47.1)Status post left total knee arthroplasty. 01/31/2025ftercare following joint replacement surgery (ICD-10 - Z47.1)Right knee OA01/31/2025Presence of left artificial knee joint (ICD-10 - Z96.652)Right knee OA12/20/2024Presence of left artificial knee joint (ICD-10 - Z96.652)Status post left total knee arthroplasty.10/04/2024Presence of left artificial knee joint (ICD-10 - Z96.652)Status post left total knee vrnnodurgtfi30/24/2025 Presence of left artificial knee joint (ICD-10 - Z96.652)Status post left total knee vlzykpmyxygc26/10/2025ercare following joint replacement surgery (ICD-10 - Z47.1)06/21/2024rimary osteoarthritis of left knee (ICD-10 - M17.12)Left knee cvzglphmijxoaw34/09/2024OtherI discussion with the patient regarding his left [...] from his PCP and repeat A1c.Left knee oyyyoteaseznol94/13/2025OtherPatient is a 68-year-old male presenting today for his left knee osteoarthritis. He is exhausted con servative management. Do believe total knee arthroplasty can provide him with some benefit. Discussed risk and benefits of surgery in detail. No guarantees send and signed in the office today. Plan for left total knee arthroplasty.Left knee rdqzbihpkvlaty80/24/2025OtherPatient overall doing very well today in regard to his left total knee arthroplasty. Mobilizing quite well. Range of motion he is fairly stiff but overall progressing appropriately. Continue DVT prophylaxis. Follow-up in 1 month for clinical exam no x-rays.Status post left total knee pjustenhglgl03/24/2025OtherPatient doing well today 6 weeks postop. Range of motion improving. Continue with aggressive PT. Hemay start to drive. Will see him back in the office in 6 weeks with x-raysStatus post left total knee pdpohwtrditu67/09/2025OtherPatient doing quite well today in regards to [...] Order Date Knee, left 3v AP, Lat, [place] - [address] 0 01/31/2025 PT - Evaluate and Treat, as directed, 2 - 3 times a week x 4 - 6 weeks 07/26/2024 XR Foreign Body Loc Eye Bilateral 2024 XR Knee 1 or 2 Views Left 07/23/2024 XR Knee Standing AP Bilateral 07/26/2024 XR Knee Standing AP Bilateral 07/26/2024 SCC- KNEE 4 VIEW LEFT-23177 06/21/2024 XR KNEE LEFT (3 VIEWS) 01/31/2025 SCC- KNEE 4 VIEW RIGHT 88685 06/21/2024 SCC- KNEE 2 VIEW LEFT - 67813 09/06/2024 SCC- KNEE 2 VIEW LEFT - 34772 10/04/2024 SCC- KNEE 2 VIEW LEFT - 35416 12/20/2024 MRI Knee Surg.Navigate or Plan ONLY Left 07/23/2024 Hip to ankle Lt -65233 visioneer 024 MRI : Knee, Left. [employer] Visiona shanita including long leg films 52465 06/21/2024 Insurance Providers Payer Name Payer Address Payer Phone Subscriber Number Group Number Insured Name Patient Relationship to Insured Coverage Start Date Coverage End Date [employer] [address] [place] [address] [id number] ILA LOCKE Spouse - patient is the spouse of the insured 5 Medications Administered Medication Instructions Date of Administration Dosage Notes BUPIVACAINE mLDepo-Runacs82 wKertiutbdi58/26/20244 mL
--- OUTSIDE RECORDS SUMMARY | 2025-06-08 10:05 | XMS_ITS | Clinical Summary ---
Author Organization [facility] Address [id number] [address] [place] [address] Care Team Providers Care Ceo & Board Director Name Role Phone Unavailable Primary Care Provider Unavailabl e Social History Tobacco UseTypesPacks/DayYears UsedDateSmoking Tobacco: Never AssessedChildcare AnswerDate PqhozrqyTqsgsejyfUenmqxo25/11/2019EmploymentAnswerDate Recorded AdtnneaoeaCjfvkva79/11/2019Purpose - LifeAnswerDate RecordedPurpose and direction in enpqOnlhinx36/11/2021ex and Gender InformationValueDate Recorded Sex Assigned at BirthNot on fileLegal KdsRfjf8402/14/2015 9:00 PM EDTGender IdentityNot on fileSexual OrientationNot on file Plan of Treatment Health MaintenanceDue DateLast DoneCommentsDepression Bovvksylk12/09/1969Tobacco Tbckmojzr43/09/1969Adult BMI Kkzofpzmq03/09/1975DTaP,Tdap and Td Vaccines (1 - Tdap)1975Zoster (Shingles) Vaccine (1 of 2)2006Fall Risk Screening 2021Influenza Vsekmxg2303/14/2025RSV ( or age 60+ yrs) (1 - 1-dose 75+ series)2031 Medical Devices Not on file
--- OUTSIDE RECORDS SUMMARY | 2025-06-08 10:06 | XMS_ITS | Patient Health Record ---
Author Organization [facility] [place] Address [address] [place] [address] Care Team Providers Care Embedded Developer Name Role Phone None, Unknown or Primary Care Provider Unavailab James Gutierrez Unavailable [phone] Allergies Allergen (clinical drug ingredient) Drug/Non Drug Allergy documented on EMR Reaction Allergy Type Onset Date Status oxycodone Oxycodone Unknown Drug Allergy Active Results Component Value Reference Range Notes PROF CHEM 8 (BAS METB) Reviewed date:08/24/2024 12:52:49 PM Interpretation: Performing Lab: Notes/Report: [facility] , Sodium 143 136-145 mmol/L Potassium4.73.5-5.1 mmol/JYksdruqi79868-752 mmol/LCarbon Lmyjtfu58.421.0-32.0 mmol/LAnion Gap14.4Zzxdspm29623-521 mg/dLBlood Urea Eumzqjrg01.07.0-18.0 mg/dL Creatinine1.620.70-1.30 mg/dLEstimated GFR ( Qwtfxzu38>=60 mL/min/1.73m 2 Estimated GFR (Non- Ame43>=60 mL/min/1.73m 2BUN Creatinine Ratio17.3 Calcium7.78.5-10.1 mg/dLPerforming Lab:see noteML - [facility] LBCBC AUTO DIFF Reviewed date:08/24/2024 12:52:49 PM Interpretation: Performing Lab: Notes/Report: [facility] ,White Blood Count13.84.0-11.0 10 3/uLRed Blood Count3.504.70-6.10 10 6/uL Ydlfiwicty68.514.0-18.0 g/oJSzuzpowdwa83.842.0-54.0 %Mean Corpuscular Juqzmw83.4 80.0-94.0 fLMean Corpuscular Kfesjvwgpr95.925.9-34.0 pgMean Corpuscular HGB Conc 33.029.9-35.2 g/dLRed Cell Distribution Width13.711.0-15.0 %Platelet Kdnnq086 150-450 10 3/uLMean Platelet Volume9.29.5-13.5 fLNeutrophils Percent Auto81.1 43.0-75.0 %Lymphocytes Percent Auto8.920.5-60.0 %Monocytes Percent Auto9.11.7- 12.0 %Eosinophils Percent Auto0.10.9-7.0 %Basophils Percent Auto0.10.2-2.0 % Immature Granulocytes Pct Auto0.70.0-0.5 %Neutrophils Absolute Auto11.21.4-6.5 10 3/uLLymphocytes Absolute Auto1.21.2-3.8 10 3/uLMonocytes Absolute Auto1.30.3- 0.8 10 3/uLEosinophils Absolute Auto0.00.0-0.7 10 3/uLBasophils Absolute Auto0.0 0.0-0.1 10 3/uLImmature Granulocytes Abs Auto0.090.00-0.03 10 3/uLPerforming Lab:see noteML - [facility] Reason For Referral No Information Medications [...] due t o type 2 diabetes mellitus (001952888) Type 2 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) ActiveconfirmedProblemFoot ulcer due to type 2 diabetes mellitus (4653412952109) Type 2 diabetes mellitus with foot ulcer (E11.621)ActiveconfirmedProblemAcquired hallux valgus (09377298)Hallux valgus (acquired), left foot (M20.12)Active confirmedProblemAcquired hallux rigidus (5391286)Hallux rigidus, left foot (M20.22)ActiveconfirmedProblemPseudarthrosis after fusion or arthrodesis (444463537)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)Activeconfirmed ProblemPain associated with internal prosthetic device (disorder) (639985377) Pain due to internal orthopedic prosthetic devices, implants and grafts, initial encounter (T84.84XA)ActiveconfirmedProblemHistory of arthrodesis (320774707) Arthrodesis status (Z98.1)ActiveconfirmedProblemAcquired hallux rigidus (9966137)Acquired hallux rigidus of left foot (M20.22)ActiveconfirmedProblem Delayed healing of surgical wound (finding) (767900341)Delayed surgical wound healing (T81.89XA)ActiveconfirmedProblemPolyneuropathy due to type 2 diabetes mellitus (823211027)Diabetes mellitus with polyneuropathy (E11.42)Active confirmedProblemChronic foot ulcer, [...] ACCESS PPO PLUS LOCAL PLAN [address] [place] [address] [id number] Ilya Kanwal Spouse - patient is the spouse of the insured 3 [place] [id number] Part A OnlyLance Caraballof - patient is [...]
--- OUTSIDE RECORDS SUMMARY | 2025-06-08 10:07 | XMS_ITS | CCD ---
Author Organization [facility] Care Team Providers Care Director Digital Marketing Name Role Phone Dominikjamaal Racheal Unavailable Ant [...] Primary Care Unavailable BERRIOS ., DR FELISA Juarze Admjulio césar Unavailable BERRIOS ., DR FELISA [...] FELISA Juarez Primary Care Unavailable [facility] [place] Attending Unavailable [facility] [place] Admitting Unavailable [facility] [place] Consulting Unavailable [facility] DR RACHEAL Ayala Admitting Unavailable [facility], DR RACHEAL Ayala Consulting Unavailable [facility], DR RACHEAL Ayala Attending Unavailable BERRIOS ., DR FELISA Juarez Primary Care Unavailable [facility], DR ELIN Oliva Consulting Unavailable BERRIOS [...] Care Physician TULIO RUGGIERO Primary Care Physician [phone] Tulio Ruggiero MD Unavailable Tulio Ruggiero MD Primary Care Provider Daniele Valencia DO Attending UnavailDaniele Tsai DO Attending UnavailTULIO Etienne Attending Unavailable MONIK, TULIO Attending Unavailable MONIK, TULIO Attending Unavailable Tulio Ruggiero MD Primary Care Provider DANIELE VALENCIA Referring Unavailable TULIO RUGGIERO Primary Care UnavailVika Siddiqi Attending Unavailable LIZ ABREU Attending Unavailable Tulio Ruggiero MD Unavailable Tulio Ruggiero MD Primary Care Provider [phone] Tulio Ruggiero MD Primary Care Provider Tulio Ruggiero MD Primary Care Provider [phone] Allergies Allergy ClassificationReported Allergen(s)Allergy TypeDate of OnsetReaction(s) Facility (3 sources)Acetaminophen / oxyCODONEDrug AllergyUnknowMineral Area [facility] [place] Other (20 sources)Acetaminophen / oxyCODONE; Translations: [OXYCODONE-ACETAMINOPHEN] Drug Ympnaid02-40-4133Qqjgnzh, [facility] (20 sources)oxyCODONE; Translations: [OXYCODONE]Drug Orafaie46-68-8866 Hyperactive behavior (finding)[facility] Repository (1 source)Acetaminophen / oxyCODONEDrug AllergyThe [facility] Rep[facility] (1 source)oxyCODONE; Translations: [OxyCODONE Hydrochloride][facility] Medications Current Medications MedicationDrug Class(es)DatesSig (Normalized)Sig (Original)allopurinol 300 mg oral tablet (20 sources)Xanthine Oxidase Inhibitorallopurinol (Zyloprim) 300 MG tablet 1 (one) time each day at the same time. Activeatorvastatin 20 mg oral tablet (20 sources)HMG-CoA Reductase InhibitorStart: 85-95-0432qnof 1 tablet by mouth at bedtimeatorvastatin (Lipitor) 20 MG tablet Indications: Dyslipidemia Take 1 tablet (20 mg) by mouth at bedtime 90 tablet 3 09/30/2023 ActiveAtorvastatin Calcium Activebaclofen 10 mg oral tablet (20 sources)gamma-Aminobutyric Acid-ergic AgonistStart: 37-81-1108mokv 1 tablet by mouth at bedtimebaclofen 10 mg Tab 10 mg = 1 tab(s), Oral, Bedtime, Refills(s) 0, Muscle pain Start Date: 11/17/20 Status: Orderedtake 1 tablet by mouth at bedtimebaclofen (Lioresal) 20 MG tablet Take 1 tablet by mouth at bedtime. 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) , Type 2 diabetes mellitus with hyperglycemia, without long-term current use of insulin (CMS/HCC) TAKE 1 TABLET BY MOUTH THREE TIMES A DAY NEEDED FOR GOUT 60 tablet 3 08/06/2023 ActiveColchicine Activecyclobenzaprine hydrochloride 10 mg oral tablet (2 sources)Muscle RelaxantStart: 85-97-7076vmlmbbwjojnvhgg 10 mg Tab Refills(s) 0 Start Date: 11/04/23 Status: OrdereddiazePAM 10 mg oral tablet (20 sources)BenzodiazepinediazePAM (Valium) 10 MG tablet Take by mouth every 8 (eight) hours if needed Activediclofenac sodium 50 mg delayed release oral tablet (20 sources)Nonsteroidal Anti-inflammatory DrugStart: 75-54-2580wjfcpwkjjy sodium 50 mg Oral EC Tab Refills(s) 0 Start Date: 11/04/23 Status: Ordered febuxostat 40 mg oral tablet (20 sources)Xanthine Oxidase InhibitorStart: 26-13-9647xvkvkkjrlm (Uloric) 40 MG tablet Indications: Type 2 diabetes mellitus with hyperglycemia, without long- term current use of insulin (HCC) , Morbid obesity (CMS-HCC) , 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) Take 1 tablet (40 mg) by mouth Daily 90 tablet 3 11/03/2024 ActiveStart: 04-25-2020 End: 60-62-3335fuvdlhgnrt (Uloric) 40 MG tablet Indications: Morbid obesity (CMS/HCC) , Polyneuropathy due to type2 diabetes mellitus (CMS/HCC) , Type 2 diabetes mellitus with hyperglycemia, without long-term current use of insulin (CMS/HCC) TAKE 1 TABLET BY MOUTH EVERY DAY 90 tablet 3 08/09/2024 Active Febuxostat Activegabapentin 300 mg oral capsule (20 sources)Anti-epileptic AgentStart: 48-17-0699elpk 1 capsule by mouth at bedtimegabapentin (Neurontin) 300 MG capsule Indications: 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) TAKE 1 CAPSULE BY MOUTH IN THE MORNING, EVENING AND BEFORE BEDTIME 270 capsule 03/07/2025 ActiveStart: 11-15-2020 End: 66-10-1009eqgo 1 capsule by mouth in the morning, [...] oral tablet (20 sources)Angiotensin Converting Enzyme InhibitorStart: 10-99-6649yorbpsxxam 5 MG tablet Indications: Morbid obesity (CMS-HCC) , 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) , Type 2 diabetes mellitus with hyperglycemia, without long-term current use of insulin (HCC) TAKE 1 TABLET BY MOUTH EVERY DAY 90 tablet 3 06/07/2024 ActiveStart: 40-44-9961iuxflvelcd 5 MG tablet Indications: Morbid obesity (CMS/HCC) , 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) , Type 2 diabetes mellitus with hyperglycemia, without long-term current use ofinsulin (CMS/HCC) TAKE 1 TABLET BY MOUTH EVERY DAY 90 tablet 3 08/06/2023 ActiveLisinopril Tvgucm37 hr metFORMIN hydrochloride 500 mg extended release oral tablet (20 sources)BiguanideStart: 26-93-5827hvgCXKWEM XR (Glucophage-XR) 500 MG 24 hr tablet Indications: Morbid obesity (CMS-HCC) , 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) , Type 2 diabetes mellitus with hyperglycemia, without long-term current use of insulin (HCC) TAKE 1 TABLET BY MOUTH EVERY DAY IN THE MORNING 90 tablet 3 06/07/2024 ActiveStart: 25-48-6797vfgBOOAGQ XR (Glucophage- XR) 500 MG 24 hr [...] mg oral tablet (1 source)Nonsteroidal Anti-inflammatory DrugStart: 46-48-5296tlgb 1 tablet by mouth twice dailynabumetone 500 mg Tab 500 mg = 1 tab(s), Oral, BID, Refills(s) 0, Arthritis Start Date: 11/17/20 Status: OrderedOzempic (3 sources)Ozempic Activeprobenecid 500 mg oral tablet (20 sources)Start: 34-77-8995hivh 1 tablet by mouth onceprobenecid (Benemid) 500 MG tablet Indications: Arthritis, gouty Take 1 tablet (500 mg) by mouth every 12 (twelve) hours 60 tablet 3 07/15/2024 Active End: 76-25-5422imzzpeyujh (Benemid) 500 MG tablet every 12 (twelve) hours. 07/15/2024 Discontinued (Reorder)take 1 tablet by mouth every twelve hours Probenecid 500 MG 1 tablet Orally Twice a day Active0.25 mg, 0.5 mg dose 1.5 ml semaglutide 1.34 mg/ml pen injector (3 sources)Start: 70-25-7071pecaeu 0.5 mg by subcutaneous injection every week Ozempic 2 mg/1.5 mL (0.25 mg or 0.5 mg dose) subcutaneous solution 0.5 mg, SubCutaneous, qWeek, Refill(s) 0 Start Date: 04/24/21 Status: Ordered Semaglutide, 2 MG/DOSE, (Ozempic, 2 MG/DOSE,) 8 MG/3ML solution pen-injector (20 sources)Start: 05-18-6729zxwhvg 2 mg by subcutaneous injection every week Semaglutide, 2 MG/DOSE, (Ozempic, 2 MG/DOSE,) 8 MG/3ML solution pen-injector Indications: Type 2 diabetes mellitus with hyperglycemia, without long-term current use of insulin (HCC) INJECT 2 MG SUBCUTANEOUSLY WEEKLY 9 mL 3 10/20/2024 ActiveStart: 01-64-9739geaamj 2 mg by subcutaneous injection every week Semaglutide, 2 MG/DOSE, (Ozempic, 2 MG/DOSE,) 8 MG/3ML solution pen-injector Indications: Type 2 diabetes mellitus with hyperglycemia, without long-term current use of insulin ([facility]/HCC) INJECT 2 MG SUBCUTANEOUSLY WEEKLY 9 mL 3 10/20/2024 ActiveStart: 75-94-9361rgprnj 2 mg by subcutaneous injection every weekSemaglutide, 2 MG/DOSE, (Ozempic, 2 MG/DOSE,) 8 MG/3ML solution pen-injector Indications: Type 2 diabetes mellitus with hyperglycemia, without long-term current use of insulin ([facility]) Inject 2 mg under the skin 1 (one) time per week 9 mL 3 08/26/2023 Activesulfamethoxazole 800 mg / trimethoprim 160 mg oral tablet (3 sources)Dihydrofolate Reductase Inhibitor Antibacterial, Sulfonamide AntimicrobialStart: 10-13-2024 End: 06-38-8516xkht 1 tablet by mouth once in the morningsulfamethoxazole- trimethoprim (Bactrim DS) 800-160 MG per tablet Indications: Abscess of abdominal wall Take 1 tablet by mouth in the morning and at noon for 10 days 20 tablet 10/13/2024 10/23/2024 ActiveSyringe/Needle, Disp, (B-D 3CC LUER-HERMINIO SYR 23GX1 ) 23G X 1 3 ML misc (20 sources)Start: 29-34-4566Vnzcjfx/Needle, Disp, (B-D 3CC LUER-HERMINIO SYR 23GX1 ) 23G X 1 3 ML misc Indications: Male hypogonadism Inject 1 each into the shoulder, thigh, or buttocks every 14 (fourteen) days 50 each 11 10/04/2024 ActiveStart: 06-82-6735Uklpdef/Needle, Disp, (B-D 3CC LUER-HERMINIO SYR 23GX1 ) 23G X 1 3 ML misc Indications: Male hypogonadism Inject 1 each into the shoulder, thigh, or buttocks every 14 (fourteen) days 50 each 11 12/24/2023 Active tadalafil 10 mg oral tablet (1 source)Phosphodiesterase 5 InhibitorStart: 81-63-7300lqmbnzdzn 10 mg Tab See Instructions, PRN for erectile dysfunction, 1-2 tab(s) po 60mins prior to sexual activity. do not exceed 20mg/24hrs, # 20 tab(s), Refills(s) 3, Pharmacy: [facility]/pharmacy #[id number], 188, cm, 06/03/23 10:01:00 EST, Height/Length Dosing, 138, kg, 06/03/23 10:01:00 EST, Weight Dosing Start Date: 06/03/23 Status: Ordered1 ml testosterone cypionate 200 mg/ml injection (20 sources)AndrogenStart: 12-24-2023 End: 47-93-9824azqenazowkai cypionate (Depo-Testosterone) 200 MG/ML injection Indications: Male hypogonadism Inject 0.5 mL (100 mg) into the shoulder, thigh, or buttocks every 14 (fourteen) days 10 mL 2 11/09/2024 ActiveTestosterone Cypionate 200 mg/mL intramuscular solution (3 sources)Start: 27-08-6801Xhuvsknrlcbl Cypionate 200 mg/mL intramuscular solution Refills(s) 0 Start Date: 06/03/23 Status: OrderedtiZANidine 4 mg oral tablet (20 sources)Central alpha-2 Adrenergic Agonisttake 1 tablet by mouth every six hours as neededtiZANidine (Zanaflex) 4 MG tablet Take 4 mg by mouth every 6 (six) hours if needed for muscle spasms ActivetraMADol hydrochloride 50 mg oral tablet (20 sources)Opioid AgonistStart: 76-37-1298dlaTRYDE 50 mg Tab Refills(s) 0 Start Date: 06/03/23 Status: OrderedtraMADol HCl ActivetraZODone hydrochloride 50 mg oral tablet (20 sources)Serotonin Reuptake InhibitorStart: 82-69-7137bsas 1 tablet by mouth at bedtimetraZODone (Desyrel) 50 MG tablet Indications: Primary insomnia Take 1 tablet (50 mg) by mouth at bedtime 30 tablet 3 12/27/2024 ActiveStart: 54-31-8768irkt 1 tablet by mouth at bedtimetraZODone (Desyrel) 50 MG tablet Indications: Primary insomnia TAKE 1 TABLET BY MOUTH AT BEDTIME 30tablet 3 06/24/2024 ActiveStart: 61-40-9942sfas 50 mg by mouth once daily at bedtime trazodone 50 mg, Oral, Once a day (at bedtime), Refills(s) 0 Start Date: 05/27/24 Status: OrderedStart: 68-69-7932oezw 1 tablet by mouth at bedtime traZODone (Desyrel) 50 MG tablet Indications: Primary insomnia Take 1 tablet (50 mg) by mouth at bedtime 30 tablet 3 02/26/2024 ActiveVitamin D3 (3 sources)Start: 85-10-7992Kfwcpho D3 50,000 International_Unit, BID, Refills(s) 0, Prophylaxis Start Date: 04/25/20 Status: Ordered Completed/Discontinued Medications MedicationDrug Class(es)DatesSig (Normalized)Sig (Original)LORazepam 0.5 mg oral tablet (1 source)BenzodiazepineStart: 30-40-8811Bltfke 0.5 mg Tab 1 mg = 2 tab(s), Oral, Once a day (at bedtime), take one tab 30 minutes prior to leaving house for biopsy. Take second one 30 minutes prior to scheduled time of biopsy if needed, # 2 tab(s), Refills(s) 0, Pharmacy: [facility]/pharmacy #[id number], 185.4, cm, 12/05/20 11:15:00 EDT, Height/Length Dosing, 153.8, kg, 12/05/20 11:15:00 EDT, Weight Dosing Start Date: 12/06/20 Status: Orderedtriamcinolone acetonide 40 mg/ml injectable suspension (4 sources)CorticosteroidStart: 85-99-8815Osueiwd-40 May, 40 mgStart: 04-67-6327Sregluk -40 mg Jul, 40 mg Problems Active Problems Problem ClassificationProblemDateDocumented DateEpisodic/ChronicAcquired foot deformities (5 sources)Hallux rigidus, left foot; Translations: [Hallux valgus (acquired), left foot]Onset: 47-77-1568ScevzcvTzlwuu (1 source)Cough variant asthma; Translations: [COUGH VARIANT ASTHMA]Onset: 07-42-3868XlpddbeVyzctixa of urinary tract (10 sources)Calculus of kidney; Translations: [Kidney stone]Onset: 05-27-2022 EpisodicCataract (20 sources)Bilateral age-related nuclear cataracts; Translations: [Age-related nuclear cataract, bilateral]Onset: 804401-90-9197ZetlrssIvkkfcj kidney disease (2 sources)Chronic kidney disease stage 3A ; Translations: [Chronic kidney disease, stage 3a (CMS-HCC)]54-57-2161WdhqrqvEczgfye ulcer of skin (5 sources)Non-pressure chronic ulcer of other part of left foot limited to breakdown of skin; Translations: [Non-pressure chronic ulcer of other part of left foot with unspecified severity]Onset: 62-88-7733AkctaqlQaoufftyrfihn of surgical procedures or medical care (5 sources)Other complications of procedures, not elsewhere classified, initial encounter; Translations: [OTH COMPLICATIONS PROC NEC INITIAL]Onset: 11-05-2022 EpisodicConditions associated with dizziness or vertigo (4 sources)Dizziness and giddiness; Translations: [DIZZINESS AND GIDDINESS] Onset: 61-17-5366ViihddteOcdednudkj heart failure; nonhypertensive (4 sources)Heart failure, unspecified; Translations: [HEART FAILURE UNSPECIFIED] Onset: 37-32-7686NcutxhoYcqsyyeq mellitus with complications (20 sources)Type 2 diabetes mellitus; Translations: [Type 2 diabetes mellitus with other specified complication]Onset: 08-78-1943PhiudcvNsmctsgi mellitus without complication (5 sources)Type 2 diabetes mellitus without complications; Translations: [TYPE 2 DM WITHOUT COMPLICATIONS]Onset: 15-12-2139VqmamrqShliwasjw of lipid metabolism (20 sources)Mixed hyperlipidemia; Translations: [Pure hypercholesterolemia, unspecified]Onset: 25-91-3204GxvhacvIykamcpvy of teeth and jaw (1 source)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; Translations: [ADHESIONS AND ANKYLOSIS LEFT TMJ]Onset: 63-01-1866RxhenqayCvnbqklqr hypertension (3 sources)Essential (primary) hypertension; Translations: [Essential (primary) hypertension]Onset: 17-11-0432DrfyzckRpifwmjtqpdzs symptoms and ill-defined conditions (3 sources)Jqdtpaul83-65-7245StcvycxgXgcf and other crystal arthropathies (20 sources)Gout, unspecified; Translations: [Gouty arthropathy]Onset: 38-60-3068YpveiafYdsyqicfx (4 sources)Steatohepatitis; Translations: [Nonalcoholic steatohepatitis (HODGES)] Onset: 04-12-2021 Resolved: 55-77-3853GosirakMadgqwcwoxl of prostate (8 sources)Benign prostatic hypertrophy with outflow obstruction; Translations: [Benign prostatic hyperplasia with lower urinary tract symptoms]Onset: 51-39-5428OigrjevPjjyawcttuzcj mental health disorders (20 sources)Primary insomnia; Translations: [Primary insomnia]Onset: 01-12-2024 75-00-2647PxwuobwQixkkcttt of unspecified nature or uncertain behavior (3 sources)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 21-94-2019FxazyovfRlerjebzkkkrhh (20 sources)Arthritis of right knee; Translations: [Unilateral primary osteoarthritis, right knee]Onset: 08-07-2021 Resolved: 50-87-6625KxdgifzRquko aftercare (1 source)Patient encounter status; Translations: [Aftercare following joint replacement surgery]03-31-3262AdbzsunRhaql aftercare (1 source)Aftercare following joint replacement surgery; Translations: [Aftercare following joint replacementsurgery]Onset: 28-51-8199IfbhapoYnmit aftercare (1 source)rodent exterminator (current) use of oral hypoglycemic drugs; Translations: [INTERNATIONAL CONTROLLER USE ORAL HYPOGLYCEMIC DX]Onset: 86-02-0723GlhgokbmIsryg aftercare (1 source)Other manager intermediate (current) drug therapy; Translations: [OTH INTERNATIONAL CONTROLLER CURRENT DRUG THERAPY]Onset: 30-17-1880XvcvkwlhPocnx aftercare (3 sources)Long-term current use of qihlxanjkdmnm43-26-1336GuktsuvaTwwvo and unspecified benign neoplasm (3 sources)Benign neoplasm of descending pojme02-91-2498FemilczbIhkht and unspecified benign neoplasm (3 sources)Benign neoplasm of sigmoid axihc84-33-2887ZhixnugyWciyp and unspecified benign neoplasm (3 sources)History of polyp of sqzuf51-46-7951RetnyivgTsvly connective tissue disease (1 source)Presence of left artificial knee joint; Translations: [Presence of left artificial knee joint]Onset: 12-40-1961WkjpevdAnwdu connective tissue disease (4 sources)Pain in left foot; Translations: [PAIN IN LEFT FOOT]Onset: 12-03-2022 EpisodicOther connective tissue disease (1 source)Myalgia, other site; Translations: [MYALGIA OTHER SITE]Onset: 18-91-3746YvgaghsoKpexr connective tissue disease (4 sources)Arthrodesis status; Translations: [ARTHRODESIS STATUS]Onset: 38-63-7607NgpydiqcEublh diseases of kidney and ureters (3 sources)Hydronephrosis co-occurrent and due to calculus of kidney and ureter 23-87-1832ZypyqwikVzhko endocrine disorders (3 sources)Testicular hypofunction; Translations: [Testicular hypofunction] Onset: 58-46-9345XnzawzlOvrep endocrine disorders (20 sources)Male hypogonadism; Translations: [Testicular hypofunction]Onset: 261361-83-5127NpxuusqYlsrk liver diseases (3 sources)Lesion of liver; Translations: [Liver disease, unspecified]Chronic Other liver diseases (1 source)Fatty (change of) liver, not elsewhere classified; Translations: [FATTY CHANGE LIVER NEC]Onset: 43-10-4948GnkhffoSnrzb liver diseases (15 sources)Non-alcoholic fatty liver; Translations: [Fatty (change of) liver, not elsewhere classified]Onset: 537845-51-8344GlgcjnvEgalb liver diseases (20 sources)Non-alcoholic fatty liver disease without non-alcoholic steatohepatitis; Translations: [Fatty (change of) liver, not elsewhere classified]Onset: 980907-08-1116SkktpidJmmmn liver diseases (3 sources)Liver kxec46-93-1712UzntqgvkEdrfy lower respiratory disease (1 source)Personal history of pneumonia (recurrent); Translations: [PERSONAL HX OF PNEUMONIA RECURRENT]Onset: 67-59-7767CgltbkhyHyaor male genital disorders (6 sources)Male erectile dysfunction, unspecified; Translations: [Erectile dysfunction]Onset: 39-70-7617OlpysufVmmpf nervous system disorders (1 source)Other chronic pain; Translations: [OTHER CHRONIC PAIN]Onset: 99-98-8631IghaxskIqlca non-traumatic joint disorders (2 sources)Pain in right kneeOnset: 08-07-2021 Resolved: 05-14-8796CrygeulrBavgg nutritional; endocrine; and metabolic disorders (1 source)Morbid (severe) obesity due to excess calories; Translations: [MORBID SEVERE OBES D/T EXCESS RAFAEL]Onset: 81-18-9806ZhjmscoMexst nutritional; endocrine; and metabolic disorders (1 source)Body mass index (BMI) 39.0-39.9, adult; Translations: [BODY MASS INDEX BMI 39.0-39.9 ADULT]Onset: 84-98-0763EytfoqgJhqfy nutritional; endocrine; and metabolic disorders (3 sources)Body mass index 40+ - severely uqrui29-46-1111OkqjgyiEgemo nutritional; endocrine; and metabolic disorders (8 sources)Morbid obesity; Translations: [Morbid (severe) obesity due to excess calories]Onset: 970773-48-1419YfamhukEnbog nutritional; endocrine; and metabolic disorders (20 sources)Severe obesity; Translations: [Class 2 severe obesity due to excess calories with serious comorbidity and body mass index (BMI) of 37.0 to 37.9 in adult ([facility])]Onset: 666812-89-3320PzvcpewZxeuj skin disorders (1 source)Corns and callosities; Translations: [CORNS AND CALLOSITIES]Onset: 26-07-3204ZpfapfcmDmbgb upper respiratory disease (20 sources)Allergic rhinitis due to pollen; Translations: [Allergic rhinitis due to pollen]Onset: 366929-60-8992YrqeozvJoufc upper respiratory infections (1 source)Acute upper respiratory infection, unspecified; Translations: [ACUTE UP RESPIRATORY INFECTION UNS]Onset: 89-01-7934MappvxoqFvedkuijp heart disease (6 sources)Personal history of pulmonary embolism; Translations: [H/O: pulmonary embolus]Onset: 56-63-0509EltqhhvtZeqprcbn codes; unclassified (1 source)Obstructive sleep apnea (adult) (pediatric); Translations: [OBSTRUCTIVE SLEEP APNEA]Onset: 62-71-1306QimtpukRwmbqtue codes; unclassified (20 sources)Obstructive sleep apnea syndrome; Translations: [Obstructive sleep apnea (adult) (pediatric)]Onset: 705385-81-2808MehlrrcOtwdgafk codes; unclassified (1 source)Family history of cancer; Translations: [Family history of malignant neoplasm of prostate]Onset: 48-01-1609DzjeqyuhWgcqspfj codes; unclassified (3 sources)Family history of prostate -44-7964AvhuydinOxhiqdgbkya; intervertebral disc disorders; other back problems (20 sources)Spondylosis without myelopathy or radiculopathy, lumbar region; Translations: [Unspecified thoracic, thoracolumbar and lumbosacral intervertebral disc disorder]Onset: 02-03-5940VthlkmlEjnmkcgyeat; intervertebral disc disorders; other back problems (7 sources)Muscle spasm of back; Translations: [Backache]Onset: 01-18-2023 EpisodicUnclassified (4 sources)LOW BACK PAIN, UNSPECIFIED; Translations: [LOW BACK PAIN, UNSPECIFIED]Onset: 38-27-5098Uhjhdelybyis (1 source)PERSONAL HISTORY OF COVID-19; Translations: [PERSONAL HISTORY OF COVID-19]Onset: 67-56-7716Wjprzapzxfpm (1 source)COUGH, UNSPECIFIED; Translations: [COUGH, UNSPECIFIED]Onset: 44-75-9448Jqjwtxkfdkag (2 sources)Measurement bjeypip59-63-8678 Past or Other Problems Problem ClassificationProblemDateDocumented DateEpisodic/ChronicOther aftercare (4 sources)Encounter for surgical aftercare following surgery on the circulatory system; Translations: [ENC SURG AFTRCARE FLW SURG CIRC SYS]Onset: 02-18-2022 EpisodicOther aftercare (20 sources)Long-term current use of drug therapy; Translations: [Other manager intermediate (current) drug therapy]Onset: 057563-25-9824CbchzqniDbgyo and unspecified benign neoplasm (1 source)Hemangioma of intra-abdominal structures; Translations: [Liver hemangioma D18.03]Onset: 04-12-2021 Resolved: 76-59-4874VvrdmgdbCusxj connective tissue disease (1 source)Myalgia, unspecified site; Translations: [MYALGIA UNSPECIFIED SITE] Onset: 21-74-0167HdvarxxiYdtjp connective tissue disease (4 sources)Other muscle spasm; Translations: [OTHER MUSCLE SPASM]Onset: 61-97-8356OtcjpcvhPkhbt male genital disorders (1 source)Disorder of prostate, unspecified; Translations: [DISORDER OF PROSTATE UNSPECIFIED]Onset: 21-16-2716QtzeywezLydan non-traumatic joint disorders (3 sources)Pain in left knee; Translations: [PAIN IN LEFT KNEE]Onset: 08-07-2021 Resolved: 45-13-6799AbzxuciqUannq screening for suspected conditions (not mental disorders or infectious disease) (20 sources)Encounter for screening for malignant neoplasm of prostate; Translations: [Screening for malignant neoplasm done]Onset: 27-73-6446Jdoudkza Phlebitis; thrombophlebitis and thromboembolism (9 sources)Phlebitis and thrombophlebitis of superficial vessels of right lower extremity; Translations: [Phlebitis and thrombophlebitis of superficial vessels of left lower extremity]Onset: 01-82-6307CemefpepBwrk and subcutaneous tissue infections (20 sources)Cellulitis of left toe; Translations: [Abscess of abdominal wall] Onset: 12-11-2022 Resolved: 611248-83-3431IfrnnjzjOewahijlnyhu (1 source)LOW BACK PAIN, UNSPECIFIED; Translations: [LOW BACK PAIN, UNSPECIFIED] Onset: 85-53-3284Cwmewhltgnmv (3 sources)Patient encounter iephwe65-72-0672Txlosmam veins of lower extremity (5 sources)Varicose veins of bilateral lower extremities with pain; Translations: [VARICOSE VNS MARIE LOW EXTREMW/PAIN]Onset: 84-18-8997Fgurwpdo Results Test NameValueInterpretationReference RangeFacilityXR KNEE LEFT (3 VIEWS)on 96-52-8759USAW: XR KNEE LEFT (3 VIEWS) HISTORY: Aftercare [...] LEFT (3 VIEWS)Ordered By: Radiologist Radiology on 93-51-9945[facility] Work Phone: XR KNEE LEFT (3 VIEWS)on 28-93-4904UI KNEE LEFT (3 VIEWS)EXAM: XR KNEE LEFT (3 VIEWS) HISTORY: Aftercare following left knee joint replacement surgery COMPARISON: 08/23/2024 left knee IMPRESSION: FINDINGS/IMPRESSION: 1. 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 2. Severe osteoarthritic change right knee. Interpreted by: Russ Rodriguez Jr., MD Signed by: Russ Rodriguez Jr., MD 01/31/25 Final resultNormalGalion HospitalRadiology Study observation (narrative) NOMS HealthcareXR Knee - left 3 Viewson 89-64-6341EVFWXOHK/IMPRESSION: 1. 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 2. Severe osteoarthritic change right knee. [facility] RIS CONSOLIDATEDEXAM: XR KNEE LEFT (3 VIEWS) HISTORY: Aftercare following left knee joint replacement surgery COMPARISON: 08/23/2024 left knee [facility] RIS Russ Gandara Jr., MD - 01/31/2025 EXAM: XR KNEE LEFT (3 VIEWS) HISTORY: Aftercare following left knee joint replacement surgery COMPARISON: 08/23/2024 left knee IMPRESSION: FINDINGS/IMPRESSION: 1. 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 2. Severe osteoarthritic change right knee. [facility] [employer] [employer] TrihealthRadiology Study observation (narrative)[facility] AlliancePAYMEY TrihealthXR Knee - left 3 ViewsOrdered By: Russ Rodriguez on 81-74-1264[facility] Work Phone: tbh MICROALB CREAT RATIO RANDOMon 00-39-5955ZMDFCTSWQN URINE DYKBII987.87 mg/dL20.00 - 300.00 mg/dLNOHI HealthcareMICROALBUM CREATININE RATIO UR19.6 mg/g0.0 - 29.9 mg/gNOMS HealthcareComment on above:NO MICROALBUMINURIA 0-29 MG/G CLINICAL MICROALBUMINURIA 30-300 MG/G MACROALBUMINURIA >300 MG/G MICROALBUMIN URINE RANDOM5 mg/dLNINF - 30.0 mg/dLNOHI HealthcareCLINISYNCNATOKA COUNTY MEDICAL [facility]ENTER – [facility] HealthcareMHPT PSA, DIAGNOSTICon 79-79-1228DDBGMERA SPECIFIC ANTIGEN DX1.32 ng/mLNINF - 4.00 ng/mLNOMS HealthcareCLINISYNCNOMS HealthcareXR Knee - left 1 or 2 Viewson 10-61-0701[address] [address] XRay Report Signed Patient: CARLOS CARABALLO MR#: [id number] : 1955 Acct:[id number] Age/Sex: 69 / M ADM Date: 10/04/24 Loc: EC Attending Dr: Daniele Valencia M.D. Ordering Physician: Daniele Valencia M.D. Date of Service: 10/04/24 Procedure(s): XR knee LT 2V Accession Number(s): [id number] cc: Daniele Valencia M.D.; Tulio Ruggiero M.D. The [address] [address] Patient Name: CARLOS CARABALLO MRN: [id number] date: 1955 Sex: M Assigned Patient Location: Current Patient Location: Accession/Order Number: [id number] Exam Date: 10/04/2024 14:50 Report Date: 10/04/2024 [...] Sheppard Jr., D.O.10/04/2024 2:51 PM Dictation Location: [place] [address] Electronically authenticated by: [id number] Y Date: 10/04/2024 14:51 Dictated By: Rehan Sheppard M.D. Signed By: 10/04/24 1453 DD/ 1451 TD/TT: Event Operations Manager:MARTHAHRadiology, Radiologist, - 10/04/2024 The [place] [id number] XRay Report Signed Patient: CARLOS CARABALLO MR#: [id number] : 1955 Acct:[id number] Age/Sex: 69 / M ADM Date: 10/04/24 Loc: EC Attending Dr: Daniele Valencia M.D. Ordering Physician: Daniele Valencia M.D. Date of Service: 10/04/24 Procedure(s): XR knee LT 2V Accession Number(s): [id number] cc: Daniele Valencia M.D.; Tulio Ruggiero M.D. [address] [address] Patient Name: CARLOS CARABALLO MRN: [id number] date: 1955 Sex: M Assigned Patient Location: Current Patient Location: Accession/Order Number: [id number] Exam Date: 10/04/2024 14:50 Report Date: 10/04/2024 [...] Sheppard Jr., D.O.10/04/2024 2:51 PM Dictation Location: [place] [address] Electronically authenticated by: [id number] Y Date: 10/04/2024 14:51 Dictated By: Rehan Sheppard M.D. Signed By: 10/04/24 1453 DD/ 1451 TD/TT: Event Operations Manager: NOMS HealthcareRadiology Study observation (narrative)NOM HealthcareXR Knee - left 1 or 2 ViewsOrdered By: Radiologist Radiology on 85-89-2137WFKM [facility] Work Phone: XR Knee - left 1 or 2 Viewson 31-59-4603Rhz[address] [address] XRay Report Signed Patient: CARLOS CARABALLO MR#: [id number] : 1955 Acct:[id number] Age/Sex: 69 / M ADM Date: 09/06/24 Loc: EC Attending Dr: Daniele Valencia M.D. Ordering Physician: Daniele Valencia M.D. Date of Service: 09/06/24 Procedure(s): XR knee LT 2V Accession Number(s): [id number] cc: Daniele Valencia M.D.; Tulio Ruggiero M.D. The [place] [id number] Patient Name: CARLOS CARABALLO MRN: [id number]:[id number] date: 1955 Sex: M Assigned Patient Location: Current Patient Location: Accession/Order Number: [id number] Exam Date: 09/06/2024 14:51 Report Date: 09/06/2024 [...] Brunilda Rogers M.D.09/06/2024 2:54 PM Dictation Location: [place] [address] Electronically authenticated by: [id number] Y Date: 09/06/2024 14:54 Dictated By: Brunilda Rogers M.D. Signed By: 09/06/24 1456 DD/ 1454 TD/TT: Event Operations Manager:MARTHAHRadiology, Radiologist, - 09/06/2024 The [place] [id number] XRay Report Signed Patient: CARLOS CARABALLO MR#: [id number] : 1955 Acct:[id number] Age/Sex: 69 / M ADM Date: 09/06/24 Loc: EC Attending Dr: Daniele Valencia M.D. Ordering Physician: Daniele Valencia M.D. Date of Service: 09/06/24 Procedure(s): XR knee LT 2V Accession Number(s): [id number] cc: Daniele Valencia M.D.; Tulio Ruggiero M.D. [place] [id number] Patient Name: CARLOS CARABALLO MRN: [id number] date: 1955 Sex: M Assigned Patient Location: Current Patient Location: Accession/Order Number: [id number] Exam Date: 09/06/2024 14:51 Report Date: 09/06/2024 [...] Brunilda Rogers M.D.09/06/2024 2:54 PM Dictation Location: [place] [address] Electronically authenticated by: [id number] Y Date: 09/06/2024 14:54 Dictated By: Brunilda Rogers M.D. Signed By: 09/06/24 1456 DD/ 1454 TD/TT: Event Operations Manager: ROMEL HealthcareRadiology Study observation (narrative)NOMS HealthcareXR Knee - left 1 or 2 ViewsOrdered By: Radiologist Radiology on 52-30-8424O[facility] Work Phone: all BASIC METABOLIC PANELon 52-51-5985Synoe gap [Moles/Vol]14.3 mmol/LNOMS HealthcareCalcium [Mass/Vol]7.7 mg/dLLow8.5 - 10.1 mg/dLNOMS HealthcareChloride [Moles/Vol]108 mmol/LHigh98 - 107 mmol/LNOMS HealthcareCO2 [Moles/Vol]25.4 mmol/L21.0 - 32.0 mmol/LNOMS HealthcareCreatinine [Mass/Vol]1.62 mg/dLHigh0.70 - 1.30 mg/dLNOMS HealthcareGFR/1.73 sq M.predicted CKD-EPI (S/P/Bld) [Vol rate/Area]52Low>=60 mL/min/1.73m 2NOMS HealthcareGlucose [Mass/Vol]112 mg/wNIfnx51 - 106 mg/dLNOMS HealthcareInterpretation and review of laboratory resultsAbnormalNOMS HealthcarePotassium [Moles/Vol]4.7 mmol/L3.5 - 5.1 mmol/LNOMS HealthcareSodium [Moles/Vol]143 mmol/L136 - 145 mmol/LNOMS HealthcareTBH EGFR-NON AF MOEDARGL84Pdn>=60 mL/min/1.73m 2NOMS HealthcareUrea nitrogen [Mass/Vol]28 mg/dLHigh7.0 - 18.0 mg/dLNOMS HealthcareUrea nitrogen/Creatinine [Mass ratio]17.3 mg/mgNOMS HealthcareCLINISYNCNATOKA COUNTY MEDICAL [facility]ENTER – [facility]OK[facility] HealthcareALL CBC WITH AUTO DIFFon 99-30-2455QCMYZOABR ABSOLUTE FBXS1ROTY HealthcareBasophils/100 WBC (Bld)0.6 %0.2 - 2.0 %NOMS HealthcareEosinophils/100 WBC (Bld)4.9 %0.9 - 7.0 %NOMS HealthcareErythrocyte distribution width (RBC) [Ratio]13.5 %11.0 - 15.0 %NOMS HealthcareHematocrit (Bld) [Volume fraction]43.4 %42.0 - 54.0 %NOMS HealthcareHemoglobin (Bld) [Mass/Vol]14.7 g/dL14.0 - 18.0 g/dLNOHI HealthcareIMMATURE GRANULOCYTES ABS AUTO0.03NOHI HealthcareImmature granulocytes/100 WBC (Bld)0.4 %0.0 - 0.5 %NOMS HealthcareInterpretation and review of laboratory resultsAbnormalNOHI HealthcareLYMPHOCYTES ABSOLUTE AUTO2.2 NOMS HealthcareLymphocytes/100 WBC (Bld)30.6 %20.5 - 60.0 %NOMS Premier HealthMCH (RBC) [Entitic mass]32.8 pg25.9 - 34.0 pgNOSaint John's Regional Health CenterMCHC (RBC) [Mass/Vol] 33.9 g/dL29.9 - 35.2 g/dLNOSaint John's Regional Health CenterMCV (RBC) [Entitic vol]96.9 pTBicm11.0 - 94.0 fLNOMS HealthcareMONOCYTES ABSOLUTE AUTO0.6NOMS HealthcareMonocytes/100 WBC (Bld)8.3 %1.7 - 12.0 %NOMS HealthcareNEUTROPHILS ABSOLUTE AUTO3.9N[facility]S Healthcare Neutrophils/100 WBC (Bld)55.2 %43.0 - 75.0 %NOMS HealthcarePlatelet mean volume (Bld) [Entitic vol]8.8 fLLow9.5 - 13.5 fLNOMS HealthcareTBH EO #0.4NOMS HealthcareTBH THD106YFFB HealthcareTBH RBC4.48LowNOMS HealthcareTBH WBC7.1NOMS HealthcareCLINISYNCNOMS HealthcareXR Knee - left 4 Viewson 26-59-7019JwgW[place] [address] XRay Report Signed Patient: CARLOS CARABALLO MR#: [id number] : 1955 Acct:[id number] Age/Sex: 69 / M ADM Date: 08/23/24 Loc: SURGOUT Attending Dr: Daniele Valencia M.D. Ordering Physician: Daniele Valencia M.D. Date of Service: 08/23/24 Procedure(s): XR knee LT 4V Accession Number(s): [id number] cc: Daniele Valencia M.D.; Tulio Ruggiero M.D. The [place] [address] Patient Name: CARLOS CARABALLO MRN: [id number] date: 1955 Sex: M Assigned Patient Location: [facility] Current Patient Location: [facility] Accession/Order Number: [id number] Exam Date: 08/23/2024 12:30 Report Date: 08/23/2024 [...] M.D. Signed By: 08/23/241307 DD/ 04 TD/TT: Event Operations Manager:SIDDHARTHAadiologantonio, Radiologist, - 08/23/2024 [place] [address] XRay Report Signed Patient: CARLOS CARABALLO MR#: [id number] : 1955 Acct:[id number] Age/Sex: 69 / M ADM Date: 08/23/24 Loc: SURGOUT Attending Dr: Daniele Valencia M.D. Ordering Physician: Daniele Valencia M.D. Date of Service: 08/23/24 Procedure(s): XR knee LT 4V Accession Number(s): [id number] cc: Daniele Valencia M.D.; Tulio Ruggiero M.D. The [place] [id number] Patient Name: CARLOS CARABALLO MRN: [facility]:[id number] date: 1955 Sex: M Assigned Patient Location: [facility] Current Patient Location: [facility] Accession/Order Number: [id number] Exam Date: 08/23/2024 12:30 Report Date: 08/23/2024 [...] M.D. Signed By: 08/23/241307 DD/ 1305 TD/TT: Event Operations Manager: [facility] HealthcareRadiology Study observation (narrative)[facility]XR Knee - left 4 ViewsOrdered By: Radiologist Radiology on 52-40-1994DSMCCrittenton Behavioral Health Work Phone: aLL TYPE AND SCREENon 82-72-0919WXB and Rh group Nom (Bld)Blood group B Rh(D) positiveOur Community HospitalALL TYPE AND SCREENon 03-13-2727TTW and Rh group Nom (Bld)Blood group B Rh(D) positiveOur Community HospitalXR Knee Standing AP Bilateralon 46-51-9157XA Knee Standing AP BilateralEXAM: XR Knee Standing [...] Signed, Electronically Signed in Other Vendor System)Normal [facility] HospitalALL MISCELLANEOUS TESTon 07-42-5002UBXXGFDKFQCIS TESTCOMMENT.[facility] HealthcareComment on above:Test Ordered: [id number] Nicotine and Metabolite, Ur Qn Nicotine <10.0 ng/mL Reference Range: . This test was developed and its performance characteristics determined by [facility]. It has not been cleared or approved by the Food and Drug Administration. Nicotine levels greater than 100.0 are consistent with the use of tobacco or tobacco cessation products. Cotinine <10.0 ng/mL Reference Range: . This test was developed and its performance characteristics determined by [facility]. It has not been cleared or approved by the Food and Drug Administration. Cotinine levels greater than 200.0 are consistent with the use of tobacco or tobacco cessation products. Performed at: [address] [id number] Intelligence Support Officer: Giovany Bhatt MD, Phone: [phone] Performed at: [facility] Lab[address] [id number] Intelligence Support Officer: Ivan Mckay PhD, Phone: [phone] Nicotine and Metabolite, Quantitative, Urine CL[facility]ISYBristol [facility] Medical Center Knee Surg.Navigate or Plan ONLY Lefton 64-02-8260BAU Knee Surg.Navigate or Plan ONLY LeftHISTORY: Arthritis [...] Signed, Electronically Signed in Other Vendor System)Normal [facility] HospitalXR Knee 1 or 2 Views Lefton 20-39-9145QQ Knee 1 or 2 Views LeftEXAM: Left [...] Signed, Electronically Signed in Other Vendor System)Normal [facility] HospitalMRSA SCREENING CULTUREon 07-64-8264JNWIAVCO3 MRSA Screening Culture NOMS AxrjlucujaYACATIXT5UparqlpaIKTZ UkdgoriuvnRZJBAHPJ1Bdjwjeqds at: CB - [facility] HospitalTivzlvapldETGBCMGN[address] [place], [place] [address]NMMYCrittenton Behavioral HealthPwzxxsvvnlOFKCSQOP6Bnt Director: Ivan Mckay PhD, Phone: [phone] Behavioral HealthCLINISYNCNATOKA COUNTY MEDICAL [facility]ENTER – [facility]OK[facility] HealthcareALL CBC WITH AUTO DIFFon 38-75-5387XJKIUEMMC ABSOLUTE AUTO0.1NOMS HealthcareBasophils/100 WBC (Bld)0.9 %0.2 - 2.0 %NOMS HealthcareEosinophils/100 WBC (Bld)4.9 %0.9 - 7.0 %NOM HealthcareErythrocyte distribution width (RBC) [Ratio]13.7 %11.0 - 15.0 %NOM HealthcareHematocrit (Bld) [Volume fraction]44.7 %42.0 - 54.0 %NOM HealthcareHemoglobin (Bld) [Mass/Vol]14.9 g/dL14.0 - 18.0 g/dLNOSaint John's Regional Health CenterIMMATURE GRANULOCYTES ABS AUTO 0.02NOMS HealthcareImmature granulocytes/100 WBC (Bld)0.3 %0.0 - 0.5 %[facility] HealthcareInterpretation and review of laboratory resultsAbnormalNOSaint John's Regional Health Center LYMPHOCYTES ABSOLUTE AUTO1.5NOSaint John's Regional Health CenterLymphocytes/100 WBC (Bld)23 %20.5 - 60.0 %[facility] CenterH (RBC) [Entitic mass]32.3 pg25.9 - 34.0 pgNOBoone Hospital CenterHC (RBC) [Mass/Vol]33.3 g/dL29.9 - 35.2 g/dLCrittenton Behavioral HealthMCV (RBC) [Entitic vol]97 bISmmu25.0 - 94.0 fLNOHI HealthcareMONOCYTES ABSOLUTE AUTO0.5 NOM HealthcareMonocytes/100 WBC (Bld)7.9 %1.7 - 12.0 %[facility]OM Healthcare NEUTROPHILS ABSOLUTE AUTO4.1NOMS HealthcareNeutrophils/100 WBC (Bld)63 %43.0 - 75.0 %NOMS HealthcarePlatelet mean volume (Bld) [Entitic vol]8.8 fLLow9.5 - 13.5 fLNOMS HealthcareTBH EO #0.3NOMS HealthcareTBH OKD136BLUH HealthcareTBH RBC4.61 LowNOMS HealthcareTBH WBC6.6NOMS HealthcareCLINISYNCNOMS HealthcareECG 12-LEADon 51-66-3141JywWichita, [place] [address] Electrocardiograph Report Signed Patient: CARLOS CARABALLO MR#: [id number] : 1955 Acct:[id number] Age/Sex: 68 / M ADM Date: 07/20/24 Loc: PST Attending Dr: Daniele Valencia M.D. Ordering Physician: Daniele Valencia M.D. 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 Signed By: 07/20/242001 DD/ 0950 TD/TT: Event Operations Manager:TBHRadiology, Radiologist, - 07/20/2024 The [place] [id number] Electrocardiograph Report Signed Patient: CARLOS CARABALLO MR#: [id number] : 1955 Acct:[id number] Age/Sex: 68 / M ADM Date: 07/20/24 Loc: PST Attending Dr: Daniele Valencia M.D. Ordering Physician: Daniele Valencia M.D. 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 Signed By: 07/20/242001 DD/ TD/TT: Event Operations Manager: [place] [address] Electrocardiograph Report Signed Patient: CARLOS CARABALLO MR#: [id number] : 1955 Acct:[id number] Age/Sex: 68 / M ADM Date: 07/20/24 Loc: PST Attending Dr: Daniele Valencia M.D. Ordering Physician: Daniele Valencia M.D. 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 Signed By: 07/20/242000 DD/ TD/TT: Event Operations Manager:TBHRadiology, Radiologist, - 07/20/2024 [place] [address] Electrocardiograph Report Signed Patient: CARLOS CARABALLO MR#: [id number] : 1955 Acct:[id number] Age/Sex: 68 / M ADM Date: 07/20/24 Loc: PST Attending Dr: Daniele Valencia M.D. Ordering Physician: Daniele Valencia M.D. 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 Signed By: 07/20/242000 DD/ TD/TT: Event Operations Manager: [facility] HealthcareRadiology Study observation (narrative)[facility] HealthcareRadiology Study observation (narrative)NOMS HealthcareECG 12-LEADOrdered By: Radiologist Radiology on 37-45-3020TQGX Healthcare Work Phone: [facility] Work Phone: TB UA (CLEAN/CATCH) RESTAURANT LINE COOK/MICRO IF IND.on 07-20-2024 BILIRUBIN URINENegativeNEGATIVENOMS HealthcareBLOOD URINENegativeNEGATIVENOMS HealthcareClarity (U)CLEARCLEARNOMS HealthcareColor (U)LT. YELLOWYELLOWNOMS HealthcareGLUCOSE URINE UANegativeNEGATIVE mg/dLNOMS HealthcareKetones Ql (U) NegativeNEGATIVE mg/dLNOMS HealthcareLeukocyte esterase Test strip Ql (U) NegativeNEGATIVENOMS HealthcareNITRITE URINENegativeNEGATIVENOMS HealthcarepH (U)6.0 [pH]5.0 - 9.0NOMS HealthcarePROTEIN URINENegativeNEG/TRACE mg/dLNOMS HealthcareSPECIFIC GRAVITY URINE1.0251.005 - 1.025NOMS HealthcareURINE MICROSCOPIC INDICATEDNONOMS HealthcareUROBILINOGEN URINE0.2 EU/dL0.2 - 1.0 EU/dL NOMS HealthcareCLINISYNCNOMS HealthcareXR CHEST 2Von 72-71-2738Bl[place] [address] XRay Report Signed Patient: CARLOS CARABALLO MR#: [id number] : 1955 Acct:[id number] Age/Sex: 68 / M ADM Date: 07/20/24 Loc: [facility] Attending Dr: Daniele Valencia M.D. Ordering Physician: Daniele Valencia M.D. Date of Service: 07/20/24 Procedure(s): XR chest 2V Accession Number(s): [id number] cc: Daniele Valencia M.D.; Tulio Ruggiero M.D. The [address] [address] Patient Name: CARLOS CARABALLO MRN: [id number]:[id number] date: 1955 Sex: M Assigned Patient Location: [facility] Current Patient Location: LAB Accession/Order Number: [id number] Exam Date: 07/20/2024 10:06 Report Date: 07/20/2024 [...] M.D. Signed By: 07/20/241706 DD/ 04 TD/TT: Event Operations Manager:TBHRadiology, Radiologist, - 07/20/2024 [place] [address] XRay Report Signed Patient: CARLOS CARABALLO MR#: [id number] : 1955 Acct:[id number] Age/Sex: 68 / M ADM Date: 07/20/24 Loc: [facility] Attending Dr: Daniele Valencia M.D. Ordering Physician: Daniele Valencia M.D. Date of Service: 07/20/24 Procedure(s): XR chest 2V Accession Number(s): [id number] cc: Daniele Valencia M.D.; Tulio Ruggiero M.D. The [address] [id number] Patient Name: CARLOS CARABALLO MRN: [id number] date: 1955 Sex: M Assigned Patient Location: [facility] Current Patient Location: LAB Accession/Order Number: [id number] Exam Date: 07/20/2024 10:06 Report Date: 07/20/2024 [...] M.D. Signed By: 07/20/241706 DD/ 04 TD/TT: Event Operations Manager: ROMEL HealthcareRadiology Study observation (narrative)ROMEL CrumpXR CHEST 2V Ordered By: Radiologist Radiology on 69-41-7868QCQJ Healthcare Work Phone: ca ECHO DOPPLER COMPLETEon 49-11-3422EkkWichita, [place] [address] Cardiology Report Signed Patient: CARLOS CARABALLO MR#: [id number] : 1955 Acct:[id number] Age/Sex: 68 / M ADM Date: 06/28/24 Loc: CARD Attending Dr: Ken Mercer M.D. Ordering Physician: Ken Mercer M.D. Date of Service: 06/28/24 Procedure(s): CA echo doppler complete Accession Number(s): [id number] cc: Ken Mercer M.D.; Tulio Ruggiero M.D. Patient Name: CARLOS CARABALLO MR#: [id number] : 1955 Exam Date: 06/28/2024 Ordering Doctor: [...] Dictated By: AMARI MCMANUS (more content not included)...[facility] Rad[facility], Radiologist, MD - 06/28/2024 [place] [address] Cardiology Report Signed Patient: CARLOS CARABALLO MR#: [id number] : 1955 Acct:[id number] Age/Sex: 68 / M ADM Date: 06/28/24 Loc: CARD Attending Dr: Ken Mercer M.D. Ordering Physician: Ken Mercer M.D. Date of Service: 06/28/24 Procedure(s): CA echo doppler complete Accession Number(s): [id number] cc: Ken Mercer M.D.; Tulio Ruggiero M.D. Patient Name: CARLOS CARABALLO MR#: [id number] : 1955 Exam Date: 06/28/2024 Ordering Doctor: [...] on 06/28/2024 at 17:42 Approved by: Amari cMmanus M.D. on 06/28/2024 at 17:49 Dictated By: AMARI MCMANUS Signed By: 06/28/24 175 DD/ 174 TD/TT: Event Operations Manager: [facility] HealthRadiology Study observation (narrative)[facility] ECHO DOPPLER COMPLETEOrdered By: Radiologist Radiology on 17-52-5392YAYK [facility] Work Phone: XR Knee - bilateral 4 Viewson 48-21-5003LqbW[place]ita, [place] [address] XRay Report Signed Patient: CARLOS CARABALLO MR#: [id number] : 1955 Acct:[id number] Age/Sex: 68 / M ADM Date: 06/21/24 Loc: EC Attending Dr: Daniele Valencia M.D. Ordering Physician: Daniele Valencia M.D. Date of Service: 06/21/24 Procedure(s): XR knee MARIE 4V Accession Number(s): [id number] cc: Daniele Valencia M.D.; Tulio Ruggiero M.D. [address] [address] Patient Name: CARLOS CARABALLO MRN: [id number] date: 1955 Sex: M Assigned Patient Location: EC Current Patient Location: Accession/Order Number: [id number] Exam Date: 06/21/2024 13:16 Report Date: 06/23/2024 06:16 At the request of: DANIELE VALENCIA Procedure: XR knee MARIE 4V EXAMINATION: XR knee MARIE 4V HISTORY: BILATERAL KNEE PAIN COMPARISON: XR knee bilateral 03/24/2023 FINDINGS: RIGHT FINDINGS: BONES: Marked narrowing of the medial joint space with zyot-bi-fjzq articulation. 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 SOFT TISSUES: No visible soft tissue swelling. OTHER: Small joint effusion. LEFT FINDINGS: BONES: Marked narrowing of the medial joint space with xyvn-sh-cytq articulation. Periarticular degenerative osteophytes involving all 3 [...] M.D. Signed By: 06/23/24618 DD/ 5 TD/TT: Event Operations Manager:TBHRadiology, Radiologist, MD - 06/23/2024 [place] [address] XRay Report Signed Patient: CARLOS CARABALLO MR#: [id number] : 1955 Acct:[id number] Age/Sex: 68 / M ADM Date: 06/21/24 Loc: [facility] Attending Dr: Daniele Valencia M.D. Ordering Physician: Daniele Valencia M.D. Date of Service: 06/21/24 Procedure(s): XR knee MARIE 4V Accession Number(s): [id number] cc: Daniele Valencia M.D.; Tulio Ruggiero M.D. The [place] [address] Patient Name: CARLOS CARABALLO MRN: [id number] date: 1955 Sex: M Assigned Patient Location: [facility] Current Patient Location: Accession/Order Number: [id number] Exam Date: 06/21/2024 13:16 Report Date: 06/23/2024 06:16 At the request of: DANIELE VALENCIA Procedure: XR knee MARIE 4V EXAMINATION: XR knee MARIE 4V HISTORY: BILATERAL KNEE PAIN COMPARISON: XR knee bilateral 03/24/2023 FINDINGS: RIGHT FINDINGS: BONES: Marked narrowing of the medial joint space with ymnd-ny-asil articulation. 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 SOFT TISSUES: No visible soft tissue swelling. OTHER: Small joint effusion. LEFT FINDINGS: BONES: Marked narrowing of the medial joint space with enzk-no-vevp articulation. Periarticular degenerative osteophytes involving all 3 [...] M.D. Signed By: 06/23/24618 DD/ 5 TD/TT: Event Operations Manager: ROMEL HealthcareRadiology Study observation (narrative)[facility]XR Knee - bilateral 4 ViewsOrdered By: Radiologist Radiology on 37-02-5306[facility] Work Phone: [facility] [phone] From: Cyndi Montano To: EU - Administrative; Sent: 06/04/2024 12:06:06 EST Show up: 06/04/2024 12:05:00 EST Subject: Ambulatory Reminder Due Date/Time: 05/28/2025 12:05:00 EST Reminder/Recall Patient needs scheduled for a 1 yr f/u, PCP to check PSA. Due back in 06/07 M to call and scheduleCherrington HospitalUrology Office/Clinic Noteon [id number] Office/Clinic NoteUrology Office/Clinic Note Chief Complaint 5mo [...] E&M of Est. Patient Moderate 30-39 Min 69710 Influenza immunization status assessed 1030F Medication list [...] E&M of Est. Patient Moderate 30-39 Min 36359 3. Hypogonadism male (E29.1: Testicular hypofunction) Managed by PCP. On T injections. Ordered: Complex E&M Add on G2211 E&M of Est. Patient Moderate 30-39 Min 18096 4. ED (erectile dysfunction) (N52.9: Male erectile dysfunction, unspecified) Failed Tadalafil. A lot of neuropathy. Not interested in additional tx. Ordered: Complex E&M Add on G2211 E&M of Est. Patient Moderate 30-39 Min 03970 Follow-up With When Contact Information LIZ ABREU PA-C, URL Within 1 year Additional Instructions: Patient Education Kidney Stones, Lmen-mv-Jzvf Problem List/Past Medical History Ongoing Abnormal abdominal [...] BPH with urinary obstructio (more content not included)...Cherrington HospitalComment on above:Result Comment: Electronically Signed By: LIZ ABREU PA-C\.br\Date and Time Signed: 05/27/2409:57 ESTXR ABDOMEN 1Von 20-37-7905XgaW[place] [address] XRay Report Signed Patient: CARLOS CARABALLO MR#: [id number] : 1955 Acct:[id number] Age/Sex: 68 / M ADM Date: 05/17/24 Loc: RAD Attending Dr: Liz MARTELL Ordering Physician: Liz Abreu Date of Service: 05/17/24 Procedure(s): XR abdomen 1V Accession Number(s): [id number] cc: Tulio Ruggiero M.D.; Liz Abreu [address] [address] Patient Name: CARLOS CARABALLO MRN: [id number] date: 1955 Sex: M Assigned Patient Location: RAD Current Patient Location: Accession/Order Number: [id number] Exam Date: 05/17/2024 08:50 Report Date: 05/18/2024 [...] Steele M.D. Signed By: 05/18/2456 DD/ TD/TT: Event Operations Manager:SIDDHARTHAadiologantonio, Radiologist, - 05/18/2024 [place] [address] XRay Report Signed Patient: CARLOS CARABALLO MR#: [id number] : 1955 Acct:[id number] Age/Sex: 68 / M ADM Date: 05/17/24 Loc: RAD Attending Dr: Liz MARTELL Ordering Physician: Liz Abreu Date of Service: 05/17/24 Procedure(s): XR abdomen 1V Accession Number(s): [id number] cc: Tulio Ruggiero M.D.; Liz Abreu [place] [id number] Patient Name: CARLOS CARABALLO MRN: [id number] date: 1955 Sex: M Assigned Patient Location: RAD Current Patient Location: Accession/Order Number: [id number] Exam Date: 05/17/2024 08:50 Report Date: 05/18/2024 [...] Steele M.D. Signed By: 05/18/2456 DD/ TD/TT: Event Operations Manager: [facility] HealthcareRadiology Study observation (narrative)[facility]OM HealthcareXR ABDOMEN 1VOrdered By: Radiologist Radiology on 92-35-6585Q[facility] Work Phone: XR FOOT LT MIN 3Von 62-82-1873GvxW[place]ita, [place] [address] XRay Report Signed Patient: CARLOS CARABALLO MR#: [id number] : 1955 Acct:[id number] Age/Sex: 68 / M ADM Date: 02/11/24 Loc: EC Attending Dr: Tonio Bell D.P.M. Ordering Physician: Tonio Bell D.P.M. Date of Service: 02/11/24 Procedure(s): XR foot LT min 3V Accession Number(s): [id number] cc: Tonio Bell D.P.M.; Tulio Ruggiero M.D. The [place] [id number] Patient Name: CARLOS CARABALLO MRN: [id number] date: 1955 Sex: M Assigned Patient Location: EC Current Patient Location: Accession/Order Number: [id number] Exam Date: 02/11/2024 10:36 Report Date: 02/12/2024 [...] M.D. Signed By: 02/12/24625 DD/ 3 TD/TT: Event Operations Manager:TBHRadiology, Radiologist, - 02/12/2024 [place] [address] XRay Report Signed Patient: CARLOS CARABALLO MR#: [id number] : 1955 Acct:[id number] Age/Sex: 68 / M ADM Date: 02/11/24 Loc: EC Attending Dr: Tonio Bell D.P.M. Ordering Physician: Tonio Bell D.P.M. Date of Service: 02/11/24 Procedure(s): XR foot LT min 3V Accession Number(s): [id number] cc: Tonio Bell D.P.M.; Tulio Ruggiero M.D. The [place] [id number] Patient Name: CARLOS CARABALLO MRN: [id number] date: 1955 Sex: M Assigned Patient Location: Current Patient Location: Accession/Order Number: [id number] Exam Date: 02/11/2024 10:36 Report Date: 02/12/2024 [...] M.D. Signed By: 02/12/24625 DD/ 3 TD/TT: Event Operations Manager: [facility] HealthcareRadiology Study observation (narrative)NOM HealthcareXR FOOT LT MIN 3VOrdered By: Radiologist Radiology on 56-56-9192PWRM Healthcare Work Phone: XR FOOT LT MIN 3Von 16-90-0856ZwjW[place], [place] [address] XRay Report Signed Patient: CARLOS CARABALLO MR#: [id number] : 1955 Acct:[id number] Age/Sex: 68 / M ADM Date: 10/08/23 Loc: EC Attending Dr: Tonio Bell D.P.M. Ordering Physician: Tonio Bell D.P.M. Date of Service: 10/08/23 Procedure(s): XR foot LT min 3V Accession Number(s): [id number] cc: Tonio Bell D.P.M.; Tulio Ruggiero M.D. [place] [id number] Patient Name: CARLOS CARABALLO MRN: [id number] date: 1955 Sex: M Assigned Patient Location: Current Patient Location: Accession/Order Number: [id number] Exam Date: 10/08/2023 08:55 Report Date: 10/09/2023 [...] Signed By: 10/09/23 0553 DD/ 0550 TD/TT: Event Operations Manager:SIDDHARTHAadiology, Radiologist, - 10/09/2023 [place] [address] XRay Report Signed Patient: CARLOS CARABALLO MR#: [id number] : 1955 Acct:[id number] Age/Sex: 68 / M ADM Date: 10/08/23 Loc: EC Attending Dr: Tonio Bell D.P.M. Ordering Physician: Tonio Bell D.P.M. Date of Service: 10/08/23 Procedure(s): XR foot LT min 3V Accession Number(s): [id number] cc: Tnoio Bell D.P.M.; Tulio Ruggiero M.D. The [place] [id number] Patient Name: CARLOS CARABALLO MRN: [id number] date: 1955 Sex: M Assigned Patient Location: Current Patient Location: Accession/Order Number: [id number] Exam Date: 10/08/2023 08:55 Report Date: 10/09/2023 [...] Mccartney M.D. Signed By: 10/09/2353 DD/ TD/TT: Event Operations Manager: ROMEL HealthcareRadiology Study observation (narrative)[facility] HealthcareXR FOOT LT MIN 3VOrdered By: Radiologist Radiology on 72-93-6874[facility] Work Phone: ct FOOT LT WO CONon 24-30-6543AnfW[place], [place] [address] CT Scan Report Signed Patient: CARLOS CARABALLO MR#: [id number] : 1955 Acct:[id number] Age/Sex: 67 / M ADM Date: 07/04/23 Loc: CT Attending Dr: Tonio Bell D.P.M. Ordering Physician: Tonio Bell D.P.M. Date of Service: 07/04/23 Procedure(s): CT foot LT wo con Accession Number(s): [id number] cc: Tuloi Ruggiero M.D. [place] [id number] Patient Name: CARLOS CARABALLO MRN: [id number] date: 1955 Sex: M Assigned Patient Location: CT Current Patient Location: Accession/Order Number: [id number] Exam Date: 07/04/2023 10:18 Report Date: 07/05/2023 [...] M.D. Signed By: 07/05/23153 DD/ 1 TD/TT: Event Operations Manager:TBHRadiology, Radiologist, MD - 07/05/[address] [address] [address] Scan Report Signed Patient: CARLOS CARABALLO MR#: [id number] : 1955 Acct:[id number] Age/Sex: 67 / M ADM Date: 07/04/23 Loc: CT Attending Dr: Tonio Bell D.P.M. Ordering Physician: Tonio Bell D.P.M. Date of Service: 07/04/23 Procedure(s): CT foot LT wo con Accession Number(s): [id number] cc: Tulio Ruggiero M.D. The [address] [address] Patient Name: CARLOS CARABALLO MRN: [id number] date: 1955 Sex: M Assigned Patient Location: CT Current Patient Location: Accession/Order Number: [id number] Exam Date: 07/04/2023 10:18 Report Date: 07/05/2023 [...] M.D. Signed By: 07/05/23153 DD/ 1 TD/TT: Event Operations Manager: ROMEL HealthcareRadiology Study observation (narrative)NOM HealthcareCT FOOT LT WO CONOrdered By: Radiologist Radiology on 58-38-2843RNBD Healthcare Work Phone: XR FOOT LT MIN 3Von 67-42-5072LplW[place] [address] XRay Report Signed Patient: CARLOS CARABALLO MR#: [id number] : 1955 Acct:[id number] Age/Sex: 67 / M ADM Date: 07/02/23 Loc: RAD Attending Dr: Tonio Bell D.P.M. Ordering Physician: Tonio Bell D.P.M. Date of Service: 07/02/23 Procedure(s): XR foot LT min 3V Accession Number(s): [id number] cc: Tonio Bell D.P.M.; Tulio Ruggiero M.D. The [place] [id number] Patient Name: CARLOS CARABALLO MRN: [id number] date: 1955 Sex: M Assigned Patient Location: [facility] Current Patient Location: [facility] Accession/Order Number: [id number] Exam Date: 07/02/2023 08:44 Report Date: 07/02/2023 [...] Signed By: 07/02/23 1038 DD/ 1035 TD/TT: Event Operations Manager:SIDDHARTHAadiology, Radiologist, - 07/02/2023 [place] [address] XRay Report Signed Patient: CARLOS CARABALLO MR#: [id number] : 1955 Acct:[id number] Age/Sex: 67 / M ADM Date: 07/02/23 Loc: RAD Attending Dr: Tonio Bell D.P.M. Ordering Physician: Tonio Bell D.P.M. Date of Service: 07/02/23 Procedure(s): XR foot LT min 3V Accession Number(s): [id number] cc: Tonio Bell D.P.M.; Tulio Ruggiero M.D. [place] [address] Patient Name: CARLOS CARABALLO MRN: [id number] date: 1955 Sex: M Assigned Patient Location: [facility] Current Patient Location: RAD Accession/Order Number: [id number] Exam Date: 07/02/2023 08:44 Report Date: 07/02/2023 [...] Signed By: 07/02/23 1038 DD/ 1035 TD/TT: Event Operations Manager: ROMEL HealthcareRadiology Study observation (narrative)[facility] HealthcareXR FOOT LT MIN 3VOrdered By: Radiologist Radiology on 03-60-4450[facility] Work Phone: XR LSPINE W_OBLS AND FLEX_EXTon 46-49-0275EC LSPINE W_OBLS AND FLEX_EXTEXAMINATION: XR LSPINE W_OBLS [...] Electronically authenticated by: RACHEAL STEELE Date: 2022-12-05 09:46NoDetwiler Memorial HospitalCB AUTO DIFFon 68-19-4908ZXQJ #0.1 103/ulNormal0.0-0.1The [facility]-FairhillComment on above:Performed By: #### POCGLUC #### [facility] [address] [address] [address] Juliet WilkesBasophils/100 WBC (Bld)0.7 %Normal0.2-2.0[facility] Comment on above:Performed By: #### POCGLUC #### [facility] [address] [address] [address] Jluiet Padgett #0.4 103/ulNormal0.0-0.7The [facility]-FairhillComment on above: Performed By: #### POCGLUC #### [facility] [address] [address] [address] Juliet Huddlestonosinophils/100 WBC (Bld)5.3 %Normal0.9-7.0The [facility] Comment on above:Performed By: #### POCGLUC #### [facility] [address] [address] [address] Juliet Huddlestonrythrocyte distribution width (RBC) [Ratio]14.0 %Ljdjcq36.0-15.0 The [facility]-FairhillComment on above:Performed By: #### POCGLUC #### [facility] [address] [place] [address] Dr. Juliet Hillatoshirazt (Bld) [Volume fraction]43.6 %Swwivx12.0-54.0The [facility]-FairhillComment on above:Performed By: #### POCGLUC #### [facility] [address] [place] [address] Dr. Juliet WilkesHemoglobin (Bld) [Mass/Vol]14.9 g/tUYwifuy90.0-18.0The [facility]hillComment on above:Performed By: #### POCGLUC #### [facility] [address] [place] [address] Dr. Juliet Cervantes #0.03 10e3/ulNormal0.00-0.03The [facility]-FairhillComment on above:Performed By: #### POCGLUC #### [facility] [address] [place] [address] Dr. Juliet Cervantes %0.4 %Normal0.0-0.5The [facility]-FairhillComment on above: Performed By: #### POCGLUC #### [facility] [address] [place] [address] Dr. Juliet Arambula #2.0 103/ulNormal1.2-3.8The [facility]-FairhillComment on above:Performed By: #### POCGLUC #### [facility] [address] [place] [address] Dr. Juliet Westhocytes/100 WBC (Bld)29.3 %Lrsyup72.5-60.0The [facility]-FairhillComment on above:Performed By: #### POCGLUC #### [facility] [address] [place] [address] Dr. Juliet McdanielUAL DIFF REQNONormalThe [facility]-FairhillComment on above: Performed By: #### POCGLUC #### [facility] [address] [place] [address] Dr. Juliet Yanes (RBC) [Entitic mass]33.4 tuRmpxau90.9-34.0The [facility]FairhillComment on above:Performed By: #### POCGLUC #### [facility] [address] [place] [address] Dr. Juliet Valderrama (RBC) [Mass/Vol]34.2 g/bHZbqbfm82.9-35.2The [facility]hillComment on above:Performed By: #### POCGLUC #### [facility] [address] [place] [address] Dr. Juliet Penaloza (RBC) [Entitic vol]97.8 fLCritically high80.0-94.0The [facility]hillComment on above:Performed By: #### POCGLUC #### [facility] [address] [place] [address] Dr. Juliet Dumont #0.7 103/ulNormal0.3-0.8The [facility]FairhillComment on above:Performed By: #### POCGLUC #### [facility] [address] [place] [address] Dr. Juliet Maciasocytes/100 WBC (Bld)9.9 %Normal1.7-12.0The [facility] Comment on above:Performed By: #### POCGLUC #### [facility] [address] [place] [address] Dr. Juliet Del Angel #3.7 103/ulNormal1.4-6.5The [facility]hillComment on above:Performed By: #### POCGLUC #### [facility] [address] [place] [address] Dr. Juliet Caballeroophils/100 WBC (Bld)54.4 %Enxqxf69.0-75.0The [facility]hillComment on above:Performed By: #### POCGLUC #### [facility] [address] [place] [address] Dr. Juliet Cespedeslet mean volume (Bld) [Entitic vol]9.0 fLCritically low 9.5-13.5The [facility]hillComment on above:Performed By: #### POCGLUC #### [facility] [address] [address] [address] Juliet WilkesPLT211 103/coUetuhy189-859Roy [facility]hillComment on above: Performed By: #### POCGLUC #### [facility] [address] [address] [address] Juliet WilkesRBC4.46 106/ulCritically low4.70-6.10The [facility]hillComment on above:Performed By: #### POCGLUC #### [facility] [address] [address] [address] Juliet WilkesWBC6.8 103/ulNormal4.0-11.0The [facility]hillComment on above: Performed By: #### POCGLUC #### [facility] [address] [place] [address] Dr. Juliet WilkesPOINT OF CARE GLUCOSEon 47-34-8380Jpefinl [Mass/Vol]100 mg/dL Hytvvr65-243Mxy [facility]hillComment on above:Performed By: #### POCGLUC #### [facility] [address] [place] [address] Dr. Juliet WilkesGlucose [Mass/Vol]94 mg/wMNglmaq74-550IxxSouthern [facility] Medical Center Comment on above:Performed By: #### A1C #### [facility] [address] [place] [address] Dr. Juliet WilkesPROF CHEM 8 (BAS METB)on 06-48-9705Ypnds gap [Moles/Vol]14.0 mmol/LNormalThe [facility]hillComment on above:Performed By: #### BMP #### [facility] [address] [place] [address] Dr. Juliet WilkesCalcium [Mass/Vol]9.0 mg/dLNormal8.5-10.1[facility] Comment on above:Performed By: #### BMP #### [facility] [address] [place] [address] Dr. Juliet WilkesChloride [Moles/Vol]107 mmol/KLxiwwk05-116Mah [facility] Comment on above:Performed By: #### BMP #### [facility] [address] [address] [address] Juliet WilkesCO2 [Moles/Vol]28.7 mmol/DKywnci50.0-32.0The [facility] Comment on above:Performed By: #### BMP #### [facility] [address] [address] [address] Juliet WilkesCreatinine [Mass/Vol]1.41 mg/dLCritically high0.70-1.30The [facility]hillComment on above:Performed By: #### BMP #### [facility] [address] [address] [address] Laureano ChangEGFR-AF LIBERIAN>60Normal>=60The [facility]-FairhillComment on above:Performed By: #### BMP #### [facility] [address] [address] [address] Juliet HuddlestonGFR-NON AF BGQOSARQ61 mL/min/1.84x0Ipogdvylhg low>=60The [facility]hillComment on above:Performed By: #### BMP #### [facility] [address] [address] [address] Juliet WilkesGlucose [Mass/Vol]95 mg/aGKdfhqg54-890ZywSouthern [facility] Medical Center Comment on above:Performed By: #### BMP #### [facility] [address] [address] [address] Juliet WilkesPotassium [Moles/Vol]4.7 mmol/LNormal3.5-5.1[facility] Comment on above:Performed By: #### BMP #### [facility] [address] [address] [address] Juliet WilkesSodium [Moles/Vol]145 mmol/FSualfg924-286BadSouthern Ohio Medical Center Comment on above:Performed By: #### BMP #### [facility] [address] [address] [address] Juliet WilkesUrea nitrogen [Mass/Vol]25.0 mg/dLCritically high7.0-18.0The [facility]hillComment on above:Performed By: #### BMP #### [facility] [address] [address] [address] Juliet WilkesUrea nitrogen/Creatinine [Mass ratio]17.7 mg/mgNoDetwiler Memorial HospitalComment on above:Performed By: #### BMP #### [facility] [address] [address] [address] Juliet Watson Visiton 56-85-0740Ikvoyc-up [id number] IlyaCarlos Farrar 1955 M Date Provider Department Center 07/31/2022 BENTLEY MENDOZA [facility] Hos Family History Problem Relation Age of Onset Stroke Father Family Status - Relation Status Age at Father Level of Service:89555 [place] OFFICE/OUTPATIENT ESTABLISHED MOD MDM 30-39 MIN Reason for Visit and Comments: Hyperlipidemia [182] Hypertension [217938] history of PE [Other]NormalUnRegional Medical CenterCULTURE WOUNDon 98-95-2077OVFAGQL WOUNDCulture Observations: No growth of anaerobes at 72 hours. Isolate 1 Stenotrophomonas maltophilia Moderate growth of ORGANISM 1 Stenotrophomonas maltophilia ANTIBIOTIC M.I.C RX STATUS Levofloxacin 1 S F Trimethoprim/Sulfamethoxazole <=20 S FNormalThe [facility]hillComment on above:Performed By: #### WOUNDCX ####[facility] [address] [address]. Juliet WilkesGLYCOHEMOGLOBIN A1Con 69-20-2068SFV RECOMMENDATIONSEE BELOWNoDetwiler Memorial HospitalComment on above:Result Comment: ADA RECOMMENDED LIMIT 4.0 - 6.0 ADA THERAPEUTIC TARGET < 7.0 ACTION SUGGESTED > 7.0Performed By: #### A1C #### [facility] [address] [address] [address] Juliet WiklesGlucose [Mass/Vol]111 mg/dLSt. John of God HospitalComment on above:Performed By: #### A1C #### [facility] [address] [address] [address] Juliet WilkesHbA1c (Bld) [Mass fraction]5.5 %Normal4.5-6.2The [facility]hillComment on above:Performed By: #### A1C #### [facility] [address] [address] [address] Juliet Valdovinos M/2D COMPLETEon 54-13-3227CHLHXCJUZA M/2D COMPLETE Patient: CARLOS CARABALLO Exam Date: 06/28/2022 : 1955 Gender:M Ordering : DR KEN MERCER M.D. Admission #: [id number] Family : Order #: [id number] CLICK HERE TO VIEW EXAM ECHOCARDIOGRAM REPORT [...] by: Amari Mcmanus M.D. on 07/04/2022 at 13:38NoDetwiler Memorial HospitalURIC ACID SERUMon 69-03-1584Gwrmp [Mass/Vol]6.9 mg/dLNormal3.5-7.2[facility] CenterComment on above:Performed By: #### A1C #### [facility] [address] [place] [address] Dr. Juliet WilkesXR KUB 1 VIEWon 58-34-9006DW KUB 1 VIEWEXAMINATION: XR KUB 1 VIEW [...] Electronically authenticated by: RACHEAL STEELE Date: 2022-05-28 07:31NormalThOhioHealth [facility] AUTO DIFFon 63-94-0094HCJJ #0.1 103/ulNormal0.0-0.1The [facility]hillComment on above:Performed By: #### CBC #### [facility] [address] [address] [address] Juliet WilkesBasophils/100 WBC (Bld)0.9 %Normal0.2-2.0[facility] Comment on above:Performed By: #### CBC #### [facility] [address] [place] [address] Dr. Juliet Padgett #0.4 103/ulNormal0.0-0.7The [facility]hillComment on above: Performed By: #### CBC #### [facility] [address] [place] [address] Dr. Juliet Huddlestonosinophils/100 WBC (Bld)5.2 %Normal0.9-7.0The [facility] Comment on above:Performed By: #### CBC #### [facility] [address] [place] [address] Dr. Juliet Huddlestonrythrocyte distribution width (RBC) [Ratio]13.6 %Ixnbyz93.0-15.0 [facility] CenterComment on above:Performed By: #### CBC #### [facility] [address] [place] [address] Dr. Juliet WilkesHematocrit (Bld) [Volume fraction]40.5 %Critically low42.0-54.0 The [facility] [facility]-FairhillComment on above:Performed By: #### CBC #### [facility] [address] [address] [address] Juliet WilkesHemoglobin (Bld) [Mass/Vol]13.7 g/dLCritically low14.0-18.0[facility] [place] [facility] CenterComment on above:Performed By: #### CBC #### [facility] [address] [place] [address] Dr. Juliet Cervantes #0.02 10e3/ulNormal0.00-0.03The [facility]-FairhillComment on above:Performed By: #### CBC #### [facility] [address] [place] [address] Dr. Juliet Cervantes %0.3 %Normal0.0-0.5The [facility]-FairhillComment on above: Performed By: #### CBC #### [facility] [address] [address] [address] Juliet Arambula #1.9 103/ulNormal1.2-3.8The [facility]hillComment on above:Performed By: #### CBC #### [facility] [address] [place] [address] Dr. Juliet Westhocytes/100 WBC (Bld)27.7 %Boxgqk61.5-60.0The [facility]hillComment on above:Performed By: #### CBC #### [facility] [address] [place] [address] Dr. Juliet Melendez DIFF REQNONormalThe [facility]-FairhillComment on above: Performed By: #### CBC #### [facility] [address] [place] [address] Dr. Juliet Yanes (RBC) [Entitic mass]33.3 mpKahrwx90.9-34.0The [facility]hillComment on above:Performed By: #### CBC #### [facility] [address] [place] [address] Dr. Juliet Valderrama (RBC) [Mass/Vol]33.8 g/kQWdiydg60.9-35.2The [facility]hillComment on above:Performed By: #### CBC #### [facility] [address] [place] [address] Dr. Juliet Penaloza (RBC) [Entitic vol]98.3 fLCritically high80.0-94.0The [facility]hillComment on above:Performed By: #### CBC #### [facility] [address] [place] [address] Dr. Yilan ChangMONO #0.7 103/ulNormal0.3-0.8The [facility]hillComment on above:Performed By: #### CBC #### [facility] [address] [place] [address] Dr. Juliet Maciasocytes/100 WBC (Bld)9.9 %Normal1.7-12.0The [facility] Comment on above:Performed By: #### CBC #### [facility] [address] [place] [address] Dr. Juliet Del Angel #3.8 103/ulNormal1.4-6.5The [facility]hillComment on above:Performed By: #### CBC #### [facility] [address] [place] [address] Dr. Juliet Leoneutrophils/100 WBC (Bld)56.0 %Jvjied44.0-75.0The [facility]-FairhillComment on above:Performed By: #### CBC #### [facility] [address] [place] [address] Dr. Juliet WilkesPlatelet mean volume (Bld) [Entitic vol]9.0 fLCritically low 9.5-13.5The [facility]hillComment on above:Performed By: #### CBC #### [facility] [address] [place] [address] Dr. Juliet WilkesPLT201 103/ibHljxvq340-447Hln [facility]hillComment on above: Performed By: #### CBC #### [facility] [address] [place] [address] Dr. Juliet WilkesRBC4.12 106/ulCritically low4.70-6.10The [facility]hillComment on above:Performed By: #### CBC #### [facility] [address] [place] [address] Dr. Juliet WilkesWBC6.7 103/ulNormal4.0-11.0The [facility]hillComment on above: Performed By: #### CBC #### [facility] [address] [place] [address] Dr. Juliet WilkesGLYCOHEMOGLOBIN A1Con 84-08-8438XOL RECOMMENDATIONSEE BELOWNormtn The [facility]-FairhillComment on above:Result Comment: ADA RECOMMENDED LIMIT 4.0 - 6.0 ADA THERAPEUTIC TARGET < 7.0 ACTION SUGGESTED > 7.0Performed By: #### A1C #### [facility] [address] [place] [address] Dr. Juliet WilkesGlucose [Mass/Vol]108 mg/dLNoDetwiler Memorial HospitalComment on above:Performed By: #### A1C #### [facility] [address] [place] [address] Dr. Juliet WilkesHbA1c (Bld) [Mass fraction]5.4 %Normal4.5-6.2The [facility]hillComment on above:Performed By: #### A1C #### [facility] [address] [place] [address] Dr. Juliet WilkesLIPID PROFILEon 72-29-4775PSAL-HDL RATIO NORMSEE BELOWSt. John of God HospitalComment on above:Result Comment: 3.3 - 4.4 LOW RISK 4.4 - 7.1 AVERAGE RISK 7.1 - 11.0 MODERATE RISK >11.0 HIGH RISKPerformed By: #### LIPID, CMP #### [facility] [address] [place] [address] Dr. Juliet Nguyenesterol [Mass/Vol]154 mg/dLNormal<=200The [facility] Comment on above:Performed By: #### LIPID, CMP #### [facility] [address] [place] [address] Dr. Juliet Nguyenesterol in HDL [Mass/Vol]29 mg/dLCritically sao93-91Lqp [facility]hillComment on above:Performed By: #### LIPID, CMP #### [facility] [address] [place] [address] Dr. Juliet Nguyenesterol in LDL [Mass/Vol]64.2 mg/dLNoDetwiler Memorial HospitalComment on above:Performed By: #### LIPID, CMP #### [facility] [address] [place] [address] Dr. Yilan ChangCholesterol.total/Cholesterol in HDL [Mass ratio]5.3 {ratio} NormalThe [facility]-FairhillComment on above:Performed By: #### LIPID, CMP #### [facility] [address] [place] [address] Dr. Juliet Kenney NORMAL> or = 60 mg/dl - LOW CARDIOVASCULAR RISK <40 mg/dl - HIGH CARDIOVASCULAR RISKSt. John of God HospitalComment on above:Performed By: #### LIPID, CMP #### [facility] [address] [place] [address] Dr. Juliet WilkesLDL CALC NORMALSEE BELOWSt. John of God HospitalComment on above:Result Comment: <100 mg/dl OPTIMAL 100 - 129 mg/dl NEAR OR ABOVE OPTIMAL 130 - 159 mg/dl BORDERLINE HIGH 160 - 189 mg/dl HIGH >190 mg/dl VERY HIGH Performed By: #### LIPID, CMP #### [facility] [address] [place] [address] Dr. Juliet WilkesTriglyceride [Mass/Vol]304 mg/dLCritically high<=150The [facility]Comp[facility] on above:Performed By: #### LIPID, CMP #### [facility] [address] [place] [address] Dr. Juliet WilkesVLDL CALC60.8 mg/dLNoDetwiler Memorial HospitalCompromedica cold[facility] hospital on above: Performed By: #### LIPID, CMP #### [facility] [address] [place] [address] Dr. Juliet WilkesPROF 14(COMP METB)on 79-36-4482Lkreeiy [Mass/Vol]3.7 g/dLNormal 3.4-5.0[facility] [place] [facility] CenterComment on above:Performed By: #### LIPID, CMP #### [facility] [address] [place] [address] Dr. Juliet WilkesAlbumin/Globulin [Mass ratio]1.1 {ratio}NormalThe [facility]-FairhillComment on above:Performed By: #### LIPID, CMP #### [facility] [address] [place] [address] Dr. Juliet Caro [Catalytic activity/Vol]87 U/KEkihsr96-394Llh [facility]hillComment on above:Performed By: #### LIPID, CMP #### [facility] [address] [address] [address] Juliet Benavidez [Catalytic activity/Vol]52 U/BPjlngt34-59Uvh [facility]hillComment on above:Performed By: #### LIPID, CMP #### [facility] [address] [address] [address] Juliet Buschon gap [Moles/Vol]11.5 mmol/LNormalSouthern [place] Medical Center Comment on above:Performed By: #### LIPID, CMP #### [facility] [address] [address] [address] Juliet Holloway [Catalytic activity/Vol]27 U/XHanaef89-24Ygk [facility]hillComment on above:Performed By: #### LIPID, CMP #### [facility] [address] [place] [address] Dr. Juliet WilkesBilirubin [Mass/Vol]0.4 mg/dLNormal0.2-1.0[facility] [place] [facility] Comment on above:Performed By: #### LIPID, CMP #### [facility] [address] [place] [address] Dr. Juliet WilkesCalcium [Mass/Vol]8.7 mg/dLNormal8.5-10.1[facility] [place] [facility] Comment on above:Performed By: #### LIPID, CMP #### [facility] [address] [place] [address] Dr. Juliet WilkesChloride [Moles/Vol]106 mmol/LYvslcc44-192QckSouthern [place] Medical Center Comment on above:Performed By: #### LIPID, CMP #### [facility] [address] [place] [address] Dr. Juliet WilkesCO2 [Moles/Vol]28.2 mmol/QKpowiz72.0-32.0The [facility] Comment on above:Performed By: #### LIPID, CMP #### [facility] [address] [place] [address] Dr. Juliet WilkesCreatinine [Mass/Vol]1.21 mg/dLNormal0.70-1.30[facility] [place] [facility] CenterComment on above:Performed By: #### LIPID, CMP #### [facility] [address] [place] [address] Dr. Juliet HuddlestonGFR-AF LIBERIAN>60Normal>=60The [facility]-FairhillComment on above:Performed By: #### LIPID, CMP #### [facility] [address] [place] [address] Dr. Juliet Mccluer-NON AF LIBERIAN=60Normal>=60[facility] [place] [facility] CenterComment on above:Performed By: #### LIPID, CMP #### [facility] [address] [place] [address] Dr. Juliet WilkesGlobulin (S) [Mass/Vol]3.4 g/dLNormalThe [facility]hillComment on above:Performed By: #### LIPID, CMP #### [facility] [address] [place] [address] Dr. Juliet WilkesGlucose [Mass/Vol]100 mg/iUDsbnoz45-232XdxSouthern [place] Medical Center Comment on above:Performed By: #### LIPID, CMP #### [facility] [address] [place] [address] Dr. Juliet WilkesPotassium [Moles/Vol]4.7 mmol/LNormal3.5-5.1[facility] [place] [facility] Comment on above:Performed By: #### LIPID, CMP #### [facility] [address] [place] [address] Dr. Juliet WilkesProtein [Mass/Vol]7.1 g/dLNormal6.4-8.2The [facility] Comment on above:Performed By: #### LIPID, CMP #### [facility] [address] [place] [address] Dr. Juliet WilkesSodium [Moles/Vol]141 mmol/VQuprmr527-737UqvSouthern [place] Medical Center Comment on above:Performed By: #### LIPID, CMP #### [facility] [address] [place] [address] Dr. Juliet WilkesUrea nitrogen [Mass/Vol]23.0 mg/dLCritically high7.0-18.0[facility] [place] [facility] CenterComment on above:Performed By: #### LIPID, CMP #### [facility] [address] [place], [place] [address] Dr. Juliet Yee nitrogen/Creatinine [Mass ratio]19.0 mg/mgNormMarion HospitalComment on above:Performed By: #### LIPID, CMP #### [facility] [address] [place], [place] [address] Dr. Juliet WilkesVC CONSULT FOLLOWUPon 74-71-7238BY CONSULT FOLLOWUPPatient: CARLOS CARABALLO Exam Date: 04/08/2022 : 1955 Gender:M Ordering : DR RACHEAL STEELE M.D. Admission #: [id number] Family : Order #: [id number] CLICK HERE [...] by: Racheal Steele MD on 04/08/2022 at 11:30[facility] HospitalVC EXT VENOUS RT LIMITEDon 24-88-5837ER EXT VENOUS RT LIMITEDPatient: CARLOS CARABALLO Exam Date: 04/08/2022 : 1955 Gender:M Ordering : DR RACHEAL STEELE M.D. Admission #: [id number] Family : Order #: [id number] CLICK HERE TO VIEW EXAM RADIOLOGY REPORT [...] by: Racheal Steele MD on 04/08/2022 at 11:31[facility] HospitalVC INJ FOAM SCLERO W US MLTIon [id number] INJ FOAM SCLERO W US MLTIPatient: CARLOS CARABALLO Exam Date: 04/03/2022 : 1955 Gender:M Ordering : DR RACHEAL STEELE M.D. Admission #: [id number] Family : DR NATHALY Ojeda Order #: [id number] CLICK HERE TO VIEW EXAM RADIOLOGY REPORT [...] hours, av (more content not included)...Normal The [facility]hillVC CONSULT FOLLOWUPon 78-59-6331WS CONSULT FOLLOWUPPatient: ILYA, CARLOS Marianna Exam Date: 03/25/2022 : 1955 Gender:M Ordering : DR RACHEAL STEELE M.D. Admission #: [id number] Family : Order #: [id number] CLICK HERE TO VIEW EXAM RADIOLOGY REPORT [...] by: Elin Mccartney M.D. on 03/25/2022 at 08:41[facility] HospitalVC EXT VENOUS RT LIMITEDon 17-91-3509YZ EXT VENOUS RT LIMITEDPatient: CARLOS CARABALLO Exam Date: 03/25/2022 : 1955 Gender:M Ordering : DR RACHEAL STEELE M.D. Admission #: [id number] Family : Order #: [id number] CLICK HERE TO VIEW EXAM RADIOLOGY REPORT [...] by: Elin Mccartney M.D. on 03/25/2022 at 08:39[facility] HospitalVC ENDOVENOUS ABL 1ST V RTon 30-58-4005DF ENDOVENOUS ABL 1ST V RT Patient: CARLOS CARABALLO Exam Date: 03/19/2022 : 1955 Gender:M Ordering : DR RACHEAL STEELE M.D. Admission #: [id number] Family : Order #: [id number] CLICK HERE TO VIEW EXAM RADIOLOGY REPORT [...] by: Racheal Steele MD on 03/19/2022 at 08:58[facility]VC CONSULT FOLLOWUPon [id number] CONSULT FOLLOWUPPatient: ILYA, CARLOS Marianna Exam Date: 02/18/2022 : 1955 Gender:M Ordering : DR RACHEAL STEELE M.D. Admission #: [id number] Family : Order #: [id number] CLICK HERE TO VIEW EXAM RADIOLOGY REPORT [...] by: Racheal Steele MD on 02/18/2022 at 09:45[facility] HospitalVC EXT VENOUS LT LIMITEDon 68-40-8807AU EXT VENOUS LT LIMITEDPatient: ILYA CARLOS Marianna Exam Date: 02/18/2022 : 1955 Gender:M Ordering : DR RACHEAL STEELE M.D. Admission #: [id number] Family : Order #: [id number] CLICK HERE TO VIEW EXAM RADIOLOGY REPORT [...] varicose veins remain off of SSV and senior premium auditor mid posterior calf. *Exam performed in accordance with [facility] practice guidelines- Peripheral venous ultrasound, October 07, 2009. CONCLUSION: Post ablation occlusion of left leg varicose veins Dictated by: Racheal Steele MD on 02/18/2022 at 09:32 Approved by: Racheal Steele MD on 02/18/2022 at 09:36[facility]VC INJ FOAM SCLERO W US MLTIon [id number] INJ FOAM SCLERO W US MLTIPatient: CARLOS CARABALLO Exam Date: 02/13/2022 : 1955 Gender:M Ordering : DR RACHEAL STEELE M.D. Admission #: [id number] Family : Order #: [id number] CLICK HERE TO VIEW EXAM RADIOLOGY REPORT [...] by: Elin Mccartney M.D. on 02/13/2022 at 10:15NOhio[facility] HospitalVC CONSULT FOLLOWUPon [id number] CONSULT FOLLOWUPPatient: CARLOS CARABALLO Exam Date: 02/06/2022 : 1955 Gender:M Ordering : DR RACHEAL STEELE M.D. Admission #: [id number] Family : Order #: [id number] CLICK HERE TO VIEW EXAM RADIOLOGY REPORT [...] by: Elin Mccartney M.D. on 02/06/2022 at 09:53[facility] HospitalVC EXT VENOUS LT LIMITEDon 74-31-2679MA EXT VENOUS LT LIMITEDPatient: CARLOS CARABALLO Exam Date: 02/06/2022 : 1955 Gender:M Ordering : DR RACHEAL STEELE M.D. Admission #: [id number] Family : Order #: [id number] CLICK HERE TO VIEW EXAM RADIOLOGY REPORT [...] by: Elin Mccartney M.D. on 02/06/2022 at 09:49[facility] HospitalGLYCOHEMOGLOBIN A1Con 89-08-1816HIY RECOMMENDATIONSEE [facility] HospitalComment on above:Result Comment: ADA RECOMMENDED LIMIT 4.0 - 6.0 ADA THERAPEUTIC TARGET < 7.0 ACTION SUGGESTED > 7.0Performed By: #### A1C #### [facility] [address] [address] [address] Juliet WilkesGlucose [Mass/Vol]108 mg/dLNoDetwiler Memorial HospitalComment on above:Performed By: #### A1C #### [facility] [address] [address] [address] Juliet WilkesHbA1c (Bld) [Mass fraction]5.4 %Normal4.5-6.2The [facility]-FairhillComment on above:Performed By: #### A1C #### [facility] [address] [address] [address] Juliet WilkesPROF 14(COMP METB)on 86-73-2100Qagzfql [Mass/Vol]4.0 g/dLNormal 3.4-5.0The [facility]-FairhillComment on above:Performed By: #### CMP ####[facility] [address] [place], [place] [address]Dr.Juliet Wilkes Albumin/Globulin [Mass ratio]1.2 {ratio}NormalThe [facility]-FairhillComment on above:Performed By: #### CMP ####[facility] [address] [place], [place] [address]Dr.Juliet WilkesALP [Catalytic activity/Vol]89 U/LNormal 46-116The [facility]-FairhillComment on above:Performed By: #### CMP ####[facility] [address] [place], [place] [address]Dr.Juliet WilkesALT [Catalytic activity/Vol]81 U/LCritically xjdr97-86Lnj [facility]hillComment on above:Performed By: #### CMP ####[facility] [address] [place], [place] [address]Dr.Juliet WilkesAnion gap [Moles/Vol]13.6 mmol/LNormal The [facility]-FairhillComment on above:Performed By: #### CMP ####[facility] [address] [place], [place] [address]Dr.Juliet ChangAST [Catalytic activity/Vol]32 U/CRwzzau86-05Tef [facility]FairhillComment on above: Performed By: #### CMP ####[facility] [address] [place], [place] [address]Dr.Juliet WilkesBilirubin [Mass/Vol]0.5 mg/dLNormal 0.2-1.0The [facility]FairhillComment on above:Performed By: #### CMP ####[facility] [address] [place], [place] [address]Dr.Juliet Wilkes Calcium [Mass/Vol]8.9 mg/dLNormal8.5-10.1The [facility]hillComment on above: Performed By: #### CMP ####[facility] [address] [place], [place] [address]Dr.Juliet ChangChloride [Moles/Vol]106 mmol/LNormal 98-107The [facility]-FairhillComment on above:Performed By: #### CMP ####[facility] [address] [place], [place] [address]Dr.Yilan ChangCO2 [Moles/Vol]27.1 mmol/IUrsgrf12.0-32.0The [facility]hillComment on above: Performed By: #### CMP ####[facility] [address] [place], [place] [address]Dr.Yilan ChangCreatinine [Mass/Vol]1.46 mg/dL Critically high0.70-1.30The [facility]-FairhillComment on above:Performed By: #### CMP ####[facility] [address]cs[address] [place], [place] [address]Dr.Yilan ChangEGFR-AF JBUZHMLK88 mL/min/1.22y0Rqnrtcnqsy low>=60The [facility]-FairhillComment on above:Performed By: #### CMP ####[facility] [address] [place], [place] [address]Dr.Yilan ChangEGFR-NON AF QPMMVPXC09 mL/min/1.09u2Efudciaipr low>=60The [facility]-FairhillComment on above: Performed By: #### CMP ####[facility] [address] [place], [place] [address]Dr.Yilan ChangGlobulin (S) [Mass/Vol]3.4 g/dLNormalThe [facility]hillComment on above:Performed By: #### CMP ####[facility] [address] [place], [place] [address]Dr.Yilan ChangGlucose [Mass/Vol]93 mg/oFIuilcp42-782Ndi [facility]-FairhillComment on above:Performed By: #### CMP ####[facility] [address] [place], [place] [address]Dr.Yilan ChangPotassium [Moles/Vol]4.7 mmol/LNormal3.5-5.1The [facility]hillComment on above:Performed By: #### CMP ####[facility] [address] [place], [place] [address]Dr.Yilan ChangProtein [Mass/Vol]7.4 g/dLNormal6.4-8.2The [facility]hillComment on above:Performed By: #### CMP ####[facility] [address] [address]Dr.Yilan ChangSodium [Moles/Vol]142 mmol/COpplku551-701Aix [facility]hillComment on above:Performed By: #### CMP ####[facility] [address] [address]Dr.Yilan ChangUrea nitrogen [Mass/Vol]25.0 mg/dLCritically high7.0-18.0The [facility]hillComment on above:Performed By: #### CMP ####[facility] [address] [address]Dr.Yilan ChangUrea nitrogen/Creatinine [Mass ratio] 17.1 mg/mgNormalThe [facility]hillComment on above:Performed By: #### CMP ####[facility] [address] [address]Dr. Juliet ChangVC ENDOVENOUS ABL 1ST V LTon [id number] ENDOVENOUS ABL 1ST V LT Patient: CARLOS CARABALLO Exam Date: 01/30/2022 : 1955 Gender:M Ordering : DR RACHEAL STEELE M.D. Admission #: [id number] Family : Order #: [id number] CLICK HERE TO VIEW EXAM RADIOLOGY REPORT [...] by: Elin Mccartney M.D. on 01/30/2022 at 12:00[facility] HospitalPOINT OF CARE GLUCOSEon 68-87-7776Utpblmt [Mass/Vol]84 mg/oYQcssnh79-453 The [facility]FairhillComment on above:Performed By: #### POCGLUC #### [facility] [address] [address] [address] Juliet WilkesVC COMP CONSULTATIONon 09-64-2472PY COMP CONSULTATIONPatient: CARLOS CARABALLORusty Exam Date: 01/21/2022 : 1955 Gender:M Ordering : DR RACHEAL STEELE M.D. Admission #: [id number] Family : Order #: [id number] CLICK HERE TO VIEW EXAM RADIOLOGY REPORT [...] for years. The patient is retired from [employer] after working 42 years. The patient denies [...] any additional information, and this was performed [facility]. See separate history and physical for [...] incompetent branch saphenous tributary/varicose veins. Bilateral incompetent senior premium auditor veins. PHYSICAL EXAM: The right leg demonstrates [...] pulses were present bilaterally. IMPRESSION: 1. Bilateral avif-kn-zexqylwu great saphenous vein and mild right small [...] by: Racheal Steele MD on 01/21/2022 at 11:46[facility] V[facility]OUS REFLUX MARIE Ton 17-08-3717OE VENOUS REFLUX MARIE LMTPatient: CARLOS CARABALLO Exam Date: 01/21/2022 : 1955 Gender:M Ordering : DR RACHEAL STEELE M.D. Admission #: [id number] Family : DR NATHALY BOONE . Order #: [id number] CLICK HERE TO VIEW EXAM RADIOLOGY REPORT [...] Compressibility: Normal. Flow: Mild deep venous reflux. Breakfast Bar Attendant: Post/prox calf 5.9mm, 0.7s reflux. Prox/med calf [...] by: Racheal Steele MD on 01/21/2022 at 10:40[facility] POINT OF CARE GLUCOSEon 54-30-2086Tplcing [Mass/Vol]87 mg/kSKqyyel64-652ZtjSouthern [place] Medical CenterComment on above:Performed By: #### POCGLUC ####[facility] [address] [place], [place] [address]Oz. Juliet Wilkes SURGICAL PATHOLOGYon 71-10-3798XAICCHZL PATHOLOGYSpecimen #: [id number] Submitting Physician: JULIET WILKES M.D. FINAL DIAGNOSIS [place], [place]; [id number] (12/07/2020) Liver, mass , biopsy (A1, A2, [...] do not hesitate to contact us at [phone] with questions or if additional follow up information becomes available. This case was reviewed in conjunction with the GI pathology fellow, Apoorva Diallo MD. The following stains were performed at the [facility] in order to further characterize this [...] in-situ hybridization tests have been determined by [facility]'s Frankie JRusty [facility] [place] ([facility]) in a manner consistent with CLIA requirements. One or more of these tests have not been cleared or approved by the FDA. [facility] is regulated under CLIA as qualified to perform high-complexity testing. These tests are used for clinical purposes. They should not be regarded as investigational or for research. Nicolasa Cheema M.D. (Electronic Signature) SPECIMEN SUBMITTED A: 12 slides [id number] CLINICAL DATA Mass Date of Report: 03/27/2021 Date of Procedure: 03/16/2021 Date of Receipt: 03/15/2021 Submitted by: JULIET WILKES M.D. Location: Diagnostic interpretation performed at [place] [address]. CLIA Number: [id number] Clinic Reference Lab Comment on above:Performed By: #### S #### See report for performing lab information. Vital Signs Date TimeVital SignValuePerforming InbrviwsjDqzdhifr28-30-9082 08:53-0400Body fhkaqn549 cmTulio Ruggiero MD Work Phone: [facility] HealthUkdwnqiseu10-47-2103 08:53-0400Body mass index (BMI) [Ratio]37.62 kg/m2Tulio Ruggiero MD Work Phone: [facility] HealthHnsmrcbpsb36-15-6996 08:53-0400Body temperature 97.11 [degF]Tulio Ruggiero MD Work Phone: noSaint [facility] Health CenterBffdepxbci31-68-7400 08:53-0400Body emsywe965.9 kgTulio Ruggiero MD Work Phone: noSaint [facility]'s Regional Health CenterXwotmexzfh24-60-5354 08:53-0400Diastolic blood ygpkhutq54 mm[Hg]Tulio Ruggiero MD Work Phone: [facility] HealthLwljtwlbby71-23-2769 08:53-0400Heart rate84 /min Tulio Ruggiero MD Work Phone: [facility] HealthYjeqvknpha35-03-0942 08:53-0400Respiratory rate20 /minTulio Ruggiero MD Work Phone: [facility] HealthNbxglhgavy19-09-6575 08:53-0664FgN1% (BldA) [Mass fraction]98 %Tulio Ruggiero MD Work Phone: [facility] HealthPypvcwnhnj15-02-4857 08:53-0400Systolic blood aptleomu400 mm[Hg]Tulio Ruggiero MD Work Phone: [facility] HealthVnuholayen74-27-1649 13:22-0400Body pybikn430 cm Tulio Ruggiero MD Work Phone: [facility] HealthFcuannvxgw18-24-5851 13:22-0400Body mass index (BMI) [Ratio]38.26 kg/m2Tulio Ruggiero MD Work Phone: [facility] HealthVfkpnncokf39-52-1539 13:22-0400Body temperature 97.11 [degF]Tulio Ruggiero MD Work Phone: [facility] HealthKirkljxsxz52-24-1799 13:22-0400Body ivndpn842.17 kgTulio Ruggiero MD Work Phone: [facility] HealthDulclhuekn93-70-3194 13:22-0400Diastolic blood dyzstczb92 mm[Hg]Tulio Ruggiero MD Work Phone: [facility] HealthPokgkawxql76-04-4040 13:22-0400Heart rate97 /min Tulio Ruggiero MD Work Phone: [facility] HealthNmajhjqptg46-38-5853 13:22-0400Respiratory rate18 /minTulio Ruggiero MD Work Phone: [facility] HealthNxklwseewg14-66-3355 13:22-6832XcS9% (BldA) [Mass fraction]99 %Tulio Ruggiero MD Work Phone: [facility] HealthCvcjcwyrlv50-14-0513 13:22-0400Systolic blood rsilxyhe179 mm[Hg]Tulio Ruggiero MD Work Phone: [facility] HealthJmotrubwgq74-33-0139 09:11-0500Body mass index (BMI) [Ratio]37.75 kg/m2Tulio Ruggiero MD Work Phone: [facility] HealthGzccakxpik84-99-6701 09:11-0500Body temperature 98.4 [degF]Tulio Ruggiero MD Work Phone: [facility] HealthMmxvyufbpn40-39-0533 09:11-0500Body yyjajg268.36 kgTulio Ruggiero MD Work Phone: [facility] HealthAaqntegzws08-06-1831 09:11-0500Diastolic blood iecyjseb62 mm[Hg]Tulio Ruggiero MD Work Phone: [facility] HealthBvzhodqfmw06-57-9486 09:11-0500Heart rate96 /min Tulio Ruggiero MD Work Phone: [facility] HealthAlruohtuvc14-47-8005 09:11-0500Respiratory rate18 /minTulio Ruggiero MD Work Phone: [facility] HealthDofpkxeada31-36-4253 09:11-7013HcF0% (BldA) [Mass fraction]96 %Tulio Ruggiero MD Work Phone: [facility] HealthUodicrptqb18-69-6555 09:11-0500Systolic blood sfenwpal585 mm[Hg]Tulio Ruggiero MD Work Phone: [facility] HealthIgsmchgxgq77-63-1275 08:56-0500Blood Pressure LocationJEFRANKIE ABREU [facility]11-14-2024 08:56-0500Body chltkzujbqq67.6 [degF]LIZ ABREU [facility]11-14-2024 08:56-0500Diastolic blood ggcjoewg73 mm[Hg]LIZ ABREU [facility]11-14-2024 08:56-0500Heart rate79 /minJENNIFER DAVID [facility]11-14-2024 08:56-0500Respiratory rate18 /minJENNIFER DAVID [facility]11-14-2024 08:56-0500Systolic blood rslaiave638 mm[Hg]LIZ DAVID [facility]04-23-2024 08:38-0400Blood Pressure LocationJENNIFER DAVID [facility]04-23-2024 08:38-0400Diastolic blood wadapxnc21 mm[Hg]LIZ DAVID [facility]04-23-2024 08:38-0400Heart rate80 /minJENNIFER DAVID [facility]04-23-2024 08:38-0400Respiratory rate16 /minJENNIFER DAVID [facility]04-23-2024 08:38-0400Systolic blood unkgfjnj691 mm[Hg]LIZ DAVID [facility]11-21-2023 09:59-0500Blood Pressure LocationJENNIFER DAVID [facility]11-21-2023 09:59-0500Diastolic blood qcnimeet42 mm[Hg]LIZ DAVID [facility]11-21-2023 09:59-0500Heart rate70 /minJENNIFER DAVID [facility]11-21-2023 09:59-0500Respiratory rate16 /minJENNIFER DAVID [facility]11-21-2023 09:59-0500Systolic blood bzvzrasc423 mm[Hg]LIZ DAVID [facility]11-10-2022 09:45-0500Body gegbqz917.96 cmThomas Olexa Other [employer] Other 11-10-2022 09:45-0500Body mass index (BMI) [Ratio] 40.57 kg/c1Vytjuj Olexa Other [employer] Other 11-10-2022 09:45-0500Body iuezxb945.34 kgThomas Olexa Other [employer] Other 01-25-2022 14:15-0500Body vfdcyw522.96 cmThomas Olexa Other [employer] Other 01-25-2022 14:15-0500Body mass index (BMI) [Ratio] 40.64 kg/u5Hiebos Olexa Other [employer] Other 01-25-2022 14:15-0500Body jmagzy285.61 kgThomas Olexa Other [employer] Other 09-30-2021 10:30-0400Body oxhuya840.96 cmDavid Hykes Other [employer] Other 09-30-2021 10:30-0400Body mass index (BMI) [Ratio] 41.75 kg/r5Zssfmhortensia Daniels Other [employer] Other 09-30-2021 10:30-0400Body .51 kgDaviezequiel Daniels Other [employer] Other 09-30-2021 10:30-0400Diastolic blood puhbqrkm28 mm[Hg] Racheal Daniels Other [employer] Other 09-30-2021 10:30-0400Systolic blood chdrudln035 mm[Hg] Racheal Daniels Other [employer] Other Encounters Encounter DateEncounter TypeCare ProviderFacilityStart: 69-61-8059mjzzvbfads Vika X OrzechFacility:EU BellevueStart: 03-06-2025 End: 37-64-8147GmgmtzSyzc Naderer MD Work Phone: [facility] FMComment on above: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)Start: 01-31-2025 End: 82-10-9829Kwbgqvpfo Result EncounterGeneric External Data ProviderNOMS External Department UnsolicitedStart: 01-31-2025 End: 34-14-2628Ffzqxdzvo Result EncounterGeneric External Data ProviderNOMS External Department UnsolicitedStart: 01-31-2025 End: 01-97-4717mjmpwqjxebGNZPZ J MATHEWSMercy Pendleton HospitalStart: 01-31-2025 End: 55-76-0824Dpcjveulsf hospital visit by physicianMwh Additional [facility] Jacob RadiologyComment on above:Aftercare following left knee joint replacement surgeryStart: 01-13-2025 End: 21-25-6581Aygvxgosm Result EncounterTulio Ruggiero MD Work Phone: noms External Department UnsolicitedStart: 01-13-2025 End: 67-37-5828Tnvgjepxv Result EncounterTulio Ruggiero MD Work Phone: noms External Department UnsolicitedStart: 01-12-2025 End: 99-67-1476Hpqrdy flowsAracely Ruggiero MD Work Phone: noms CWM FMStart: 01-12-2025 End: 91-72-6656Fxunar flowsAracely Ruggiero MD Work Phone: noms C[facility] FMStart: 01-12-2025 End: 87-52-3435Uyiwbf outpatient visit 25 minutesTulio Ruggiero MD Work [...] index (BMI) of37.0 to 37.9 in adult ([facility]); Type 2 diabetes mellitus with diabetic chronic kidney disease (HCC); Chronic kidney disease, stage 3a ([facility])Start: 01-12-2025 End: 35-11-3619ryhaxstwcvQHVQ NADERERNot AvailableStart: 12-31-2024 End: 28-50-5546Yibpexzks Result EncounterGeneric External Data ProviderNOMS External Department UnsolicitedStart: 12-31-2024 End: 71-57-5984Vkinlqnge Result EncounterGeneric External Data ProviderNOMS External Department UnsolicitedStart: 12-06-2024 End: 68-52-7941EcdejeCfwt Naderer MD Work Phone: noms CWM FMComment on above:Polyneuropathy due to type 2 diabetes mellitus ([facility])Start: 11-08-2024 End: 53-67-9684IgxclqCkew Naderer MD Work Phone: NOM[facility] C[facility] FMComment on above:Male hypogonadismStart: 10-19-2024 End: 21-75-3556Gvbqhk Radha Ruggiero MD Work Phone: [facility] CWM FMComment on above:Annual physical exam (Primary Dx); Morbid obesity ([facility]); Polyneuropathy due to type 2 diabetes mellitus ([facility]); Type 2 diabetes mellitus with hyperglycemia, without long-term current use of insulin ([facility]); Arthritis, goutyStart: 10-19-2024 End: 90-99-5742Ivunntv encounter procedureTulio Ruggiero MD Work Phone: [facility] Work Phone: Start: 10-13-2024 End: 78-37-0945Luezmm flowsAracely Ruggiero MD Work Phone: [facility] CWM FMStart: 10-13-2024 End: 19-95-8750Dbzjxo Thomas Ruggiero MD Work Phone: [facility] C[facility] FMStart: 10-13-2024 End: 48-51-2248Jzwfph outpatient visit 15 minutesTulio Ruggiero MD Work Phone: [facility] C[facility] FMComment on above:Abscess of abdominal wall (Primary Dx)Start: 10-13-2024 End: 32-41-6030lruulmmgigQNGQ NADERERNot AvailableStart: 10-04-2024 End: 16-49-6870Nqdkxdomr Result EncounterGeneric External Data ProviderNOMS External Department UnsolicitedStart: 10-04-2024 End: 32-60-5214Rymkjmgvv Result EncounterGeneric External Data ProviderNOMS External Department UnsolicitedStart: 09-06-2024 End: 03-26-5501Awcknirtb Result EncounterGeneric External Data ProviderNOMS External Department UnsolicitedStart: 09-06-2024 End: 14-32-4817Hwisgzpxx Result EncounterGeneric External Data ProviderNOMS External Department UnsolicitedStart: 08-24-2024 End: 70-86-3998Hywfuulhu Result EncounterGeneric External Data ProviderNOMS External Department UnsolicitedStart: 08-24-2024 End: 42-14-2452Jqiamqvqy Result EncounterGeneric External Data ProviderNOMS External Department UnsolicitedStart: 08-23-2024 End: 12-73-1125Ulifluadg Result EncounterGeneric External Data ProviderNOMS External Department UnsolicitedStart: 08-23-2024 End: 42-79-9097Gmeusstew Result EncounterGeneric External Data ProviderNOMS External Department UnsolicitedStart: 08-19-2024 End: 40-75-3506Svbmskwxt Result EncounterGeneric External Data ProviderNOMS External Department UnsolicitedStart: 08-19-2024 End: 59-37-7884Gxoulibge Result EncounterGeneric External Data ProviderNOMS External Department UnsolicitedStart: 08-07-2024 End: 68-59-7411JfvbehPoll Naderer MD Work Phone: noms [facility] FMComment on above:Morbid obesity (CMS/HCC); 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/[facility]); Type 2 diabetes mellitus with hyperglycemia, without long-term current use of insulin (CMS/HCC)Start: 08-05-2024 End: 56-49-5945Lbwvucnxk Result EncounterGeneric External Data ProviderNOMS External Department UnsolicitedStart: 08-05-2024 End: 89-08-7298Nypqmdqkn Result EncounterGeneric External Data ProviderNOMS External Department UnsolicitedStart: 07-28-2024 End: 81-02-3105Uxfzhq Radha Ruggiero MD Work Phone: noms [facility] FMComment on above:Type 2 diabetes mellitus with hyperglycemia, without long-term current use of insulin (CMS/HCC) (Primary Dx); Dyslipidemia (CMS/HCC); Class 2 severe obesity due to excess calories with serious comorbidity and body mass index (BMI) of37.0 to 37.9 in adult (CMS/HCC); Encounter for long-term current use of medication; Screening PSA (prostate specific antigen)Start: 07-26-2024 End: 44-74-2736rvpepsjferRmdwyBlake Valencia DOFacility:[facility] Start: 07-23-2024 End: 35-27-1026mnmxorzkvgLwszi Jay Mathews DOFacility:[facility] Start: 07-20-2024 End: 03-13-1297Djtsjeili Result EncounterGeneric External Data ProviderNOMS External Department UnsolicitedStart: 07-20-2024 End: 51-92-2770Bhxerkzmr Result EncounterGeneric External Data ProviderNOMS External Department UnsolicitedStart: 07-15-2024 End: 36-22-5712Yqgydb flowsAracely Ruggiero MD Work Phone: noms C[facility] FMStart: 07-15-2024 End: 68-22-6290Ineqgc Thomas Ruggiero MD Work Phone: noms [facility] FMStart: 07-15-2024 End: 24-51-0119Gorbiay encounter procedureTulio Ruggiero MD Work Phone: [facility] Work Phone: Start: 07-15-2024 End: 83-86-0442Lzhpornt preventive med est patient 65yrs& olderTulio Ruggiero MD Work Phone: noms [facility] FMComment on above:Annual physical exam (Primary Dx); Encounter for preoperative assessment; Type 2 diabetes mellitus with hyperglycemia, without long-term current use of insulin ([facility]); Arthritis, gouty; Polyneuropathy due to type 2 diabetes mellitus ([facility]); Class 2 severe obesity due to excess calories with serious comorbidity and body mass index (BMI) of37.0 to 37.9 in adult ([facility]); Dyslipidemia ([facility]/HCC)Start: 07-15-2024 End: 10-12-8896Rdqhtorclmnc Sal Ruggiero MD Work Phone: noms HealthcareStart: 07-15-2024 End: 60-74-0974vnlqsscanhMFPE NADERERNot AvailableStart: 06-28-2024 End: 36-90-3013Eegduwkqm Result EncounterGeneric External Data ProviderNOMS External Department UnsolicitedStart: 06-28-2024 End: 39-93-0557Tjwdgynld Result EncounterGeneric External Data ProviderNOMS External Department UnsolicitedStart: 06-23-2024 End: 47-08-3357Jqptfvohv Result EncounterGeneric External Data ProviderNOMS External Department UnsolicitedStart: 06-23-2024 End: 59-24-3405Ycclmbexw Result EncounterGeneric External Data ProviderNOMS External Department UnsolicitedStart: 05-27-2024 End: 52-13-0855bbjkjnltztVPAXWIWL E PERRYFacility:EU [place]vueStart: 05-27-2024 End: 95-81-8327Xgfbqla encounter procedureJENNIFER E DAVID [facility] start: 05-18-2024 End: 50-04-8157Ebpjsgkcf Result EncounterGeneric External Data ProviderNOMS External Department UnsolicitedStart: 05-18-2024 End: 92-50-9210Mazvlmcxu Result EncounterGeneric External Data ProviderNOMS External Department UnsolicitedStart: 04-08-2024 End: 31-07-9867KvkmyaHwbp Naderer MD Work Phone: [facility] C[facility] FMComment on above:Polyneuropathy due to type 2 diabetes mellitus ([facility])Start: 04-06-2024 End: 91-54-9021LdjrcvCwdi Naderer MD Work Phone: n[facility] FMComment on above:Male hypogonadismStart: 02-12-2024 End: 51-80-3075Zjgtguhoi Result EncounterGeneric External Data ProviderNOMS External Department UnsolicitedStart: 02-12-2024 End: 97-20-4904Pgxaqdmap Result EncounterGeneric External Data ProviderNOMS External Department UnsolicitedStart: 11-04-2023 End: 54-53-0526Deuuwyx encounter procedureJENNIFER E DAVID [facility] start: 10-09-2023 End: 63-97-4097Kiopqvtdm Result EncounterGeneric External Data ProviderNOMS External Department UnsolicitedStart: 10-09-2023 End: 51-00-1021Gvyyxzobz Result EncounterGeneric External Data ProviderNOMS External Department UnsolicitedStart: 00-20-0026Cwnoqfu encounter procedureTulio Ruggiero MD Work Phone: NOMS HealthcareStart: 07-05-2023 End: 39-64-8904Ymtqekrng Result EncounterGeneric External Data ProviderNOMS External Department UnsolicitedStart: 07-05-2023 End: 23-57-0886Lgtdulpch Result EncounterGeneric External Data ProviderNOMS External Department UnsolicitedStart: 07-02-2023 End: 95-19-9084Zmickfvye Result EncounterGeneric External Data ProviderNOMS External Department UnsolicitedStart: 07-02-2023 End: 66-09-2130Nyggrirhf Result EncounterGeneric External Data ProviderNOMS External Department UnsolicitedStart: 06-03-2023 End: 47-74-6321Gpgmcnf encounter procedureJENNIFER E DAVID [facility] start: 12-05-2022 End: 30-15-1424ppmvhulxffWI KIM E KNIGHT .Facility:E9Hbmmc: 12-03-2022 End: 64-00-3697wsrkdqbgsyHU KIM E KNIGHT .Facility:J1Smcbn: 11-29-2022 End: 07-14-0722bwmnwkitctBCMWTXBJAIDT LAKSHMIPATHY .Facility:J0Ahqbm: 11-12-2022 End: 82-44-1783gmrajnyrbhKE KIM E KNIGHT .Facility:Z3Mtmpi: 11-05-2022 End: 73-15-7583sqggbkasxaGA KIM E KNIGHT .Facility:S4Mgcam: 10-28-2022 End: 85-16-1808qbmjygijwiDZ KIM E KNIGHT .Facility:J8Soiaf: 10-21-2022 End: 89-36-5875iovqokdodmPZ KIM E KNIGHT .Facility:A3Rrbpo: 78-39-2574Qhaimmdzu for preprocedural cardiovascular examinationPETER D Newark Hospitaltart: 41-10-2137Vfbxnimzp for preprocedural laboratory examinationPETER D [facility] Hospitaltart: 28-16-2000elgbpoflinAC KIM E KNIGHT . Facility:F6Kljuz: 10-10-2022 End: 89-98-2432alpvweogzyCV KIM E KNIGHT .Facility:N4Ynnvf: 10-10-2022 End: 14-64-9297Usxqqhoqb for preprocedural cardiovascular examinationDR FELISA BERRIOS .Facility:B5Kjjfa: 09-24-2022 End: 10-88-2555ooxplewqioBI KIM E KNIGHT .Facility:X6Xdhjb: 09-20-2022 End: 13-17-8255niyjvrkboqSV KIM E KNIGHT .Facility:N5Hsecs: 09-10-2022 End: 77-50-1809xuyzextdprAZ KIM E KNIGHT .Facility:A0Povtt: 08-26-2022 End: 03-35-6389nfvzxeulrzRC KIM E KNIGHT .Facility:M4Jokgm: 08-06-2022 End: 32-99-8494xhunxkbkreOXPUY D [facility] Hospitalcility:R7Zdnvx: 07-31-2022 End: 96-60-1707omgrsnbwniKTXTHQDGuernsey Memorial Hospitaltart: 07-31-2022 End: 03-48-1376pnmipyltuqMB NATHALY BOONE .Facility:T9Mujbd: 07-25-2022 End: 64-04-3380nrohtyeijrLJJC SOLIS .Facility:M5Kqieo: 07-24-2022 End: 41-17-0098aywdpunlxzBBABS D [facility] Hospitalcility:N3Pyugw: 07-23-2022 End: 11-24-3467wxihzjkcwoXC KIM E KNIGHT .Facility:O6Maegf: 07-22-2022 End: 90-92-6652wvkamquxekOI KIM E KNIGHT .Facility:S6Ufpnp: 74-12-6987hccqqrihid DR NATHALY BOONE .Facility:F8Wnzqe: 06-28-2022 End: 65-12-5208cuyljhcgoeCY EHAB ELTAHAWYFacility:E4Uhgcb: 06-10-2022 End: 11-34-2520ljpedobqxpRA FELISA BERRIOS .Facility:Q1Bkitr: 05-27-2022 End: 84-96-1878liinghehdnKL RACHEAL Ayala WESTFacility:K3Yurvl: 05-23-2022 End: 65-98-6766embdykoeduRepavr [employer] Other [employer] Other Start: 41-01-3261Uagntv outpatient visit 15 minutes Alejandra CainFPG [facility] OrthopedicsStart: 05-03-2022 End: 57-01-1356gbxeiudhwyED FELISA BERRIOS .Facility:G8Jttbb: 04-23-2022 End: 24-32-7450siiakiypgwDX NATHALY BOONE .Facility:Z6Vruic: 04-08-2022 End: 33-77-4585krfiyojudqPQ RACHEAL Ayala WESTFacility:E5Bjzdy: 04-04-2022 End: 02-22-7443jrrilpuvbzSKGN ALEX .Facility:F3Cwytf: 04-03-2022 End: 46-43-3824ygssxbwydlEH RACHEAL Ayala WESTFacility:J4Adfts: 03-25-2022 End: 22-52-9018dmknfzbvzaKE RACHEAL V WESTFacility:N1Vjhke: 03-19-2022 End: 96-93-9752osiwxzoiowQW RACHEAL V WESTFacility:G0Lwbai: 02-18-2022 End: 87-81-3903qdgbsbhbviHS RACHEAL Ayala WESTFacility:X1Kktve: 32-63-2685fzivulzhfuLO FELISA BERRIOS .Facility:K1Aohrz: 02-14-2022 End: 89-38-1483jxynhmgpdlRE FELISA BERRIOS .Facility:Q1Rsity: 02-13-2022 End: 89-69-2099barofkfpwrLN FELISA BERRIOS .Facility:O8Etlct: 02-06-2022 End: 16-54-0003qzxcbrepuiWD FELISA BERRIOS .Facility:F1Flahr: 02-05-2022 End: 13-14-3194cfdahogfauXZ FELISA BERRIOS .Facility:B7Kkezp: 01-30-2022 End: 72-94-6136oidethnokgPA FELISA Ann BERRIOS .Facility:B6Jatnn: 01-22-2022 End: 18-65-3646hdufphxtjzTI FELISA Ann BERRIOS .Facility:G9Tdbhw: 01-21-2022 End: 68-62-5406cqlkdvrbxgRP KIM Ann BERRIOS .Facility:I0Itnay: 01-08-2022 End: 65-64-9580imigqcgsntSC KIM Ann BERRIOS .Facility:Q7Gbdvu: 08-07-2021 End: 17-73-6757mylxuoldueCzucsk [employer] Other [employer] Other Start: 48-36-7015Dqrbpj outpatient visit 15 minutes Alejandra OlexaFPG [facility] BellevueStart: 57-91-4785Wzudog outpatient visit 15 minutesDavid HykesFPG Gastroenterology Procedures DateProcedureProcedure DetailPerforming ClinicianStart: 81-43-9863WX KNEE LEFT (3 VIEWS)Generic External Data ProviderStart: 72-80-6647Xzcykwpdlh examination knee 3 viewsDaniele Valencia DO Work Phone: Start: 54-37-2529LPU MICROALB CREAT RATIO RANDOMMarmilan Ruggiero MD Work Phone: Start: 24-52-7913NEXP PSA, DIAGNOSTICGeneric External Data ProviderStart: 25-87-8040Qwtbktolti examination knee 1/2 viewsGeneric External Data ProviderStart: 30-71-7870Xminsmbret examination knee 1/2 views Generic External Data ProviderStart: 35-68-9165KEJ BASIC METABOLIC PANELGeneric External Data ProviderStart: 72-51-5704Ntxjawnadt exam knee complete 4/more viewsGeneric External Data ProviderStart: 43-21-0292XVI CBC WITH AUTO DIFF Generic External Data ProviderStart: 81-11-0816Udzxahaq screenGeneric Provider Start: 81-81-4067XKL TYPE AND SCREENGeneric External Data ProviderStart: 78-01-2984Oisqigrk screenGeneric ProviderStart: 41-31-0092TNC TYPE AND SCREEN Generic External Data ProviderStart: 60-81-8080QA CHEST 2VGeneric External Data ProviderStart: 93-02-5526OKZ MISCELLANEOUS TESTGeneric External Data Provider Start: 39-00-7557QTK UA (CLEAN/CATCH) RESTAURANT LINE COOK/MICRO IF IND.Generic External Data ProviderStart: 52-34-7729WEL CBC WITH AUTO DIFFGeneric External Data Provider Start: 07-20-2024 End: 02-43-0410JIN 12-LEADGeneric External Data ProviderStart: 42-43-6616ZEIG SCREENING CULTUREGeneric External Data ProviderStart: 06-53-1094MF ECHO DOPPLER COMPLETEGeneric External Data ProviderStart: 34-03-0520Sfewozazfn exam knee complete 4/more viewsGeneric External Data ProviderStart: 51-32-1045BZ ABDOMEN 1VGeneric External Data ProviderStart: 94-51-3290PR FOOT LT MIN 3VGeneric External Data ProviderStart: 38-43-8655QL FOOT LT MIN 3VGeneric External Data ProviderStart: 25-62-1007DP FOOT LT WO CONGeneric External Data ProviderStart: 15-57-4154QO FOOT LT MIN 3VGeneric External Data ProviderStart: 13-31-0244SYC screeningDR RACHEAL Monk on above:Performed By: #### PSAD #### [facility] [address] [place] [address] Dr. Juliet Guidoart: 46-82-3972VT guided biopsyJENNIFER DAVID Comment on above:LIVER. NO SEDATION.Start: 07-15-2016 ColonoscopyTulio Ruggiero MD Work Phone: Arthroscopy of kneeJENNIFER DAVID Bilateral cataracts (disorder)LIZ DAVID H/O: vasectomyJENNIFER DAVID Titanium (substance)LIZ DAVID Comment on above:ToeTonsillectomyJENNIFER DAVID Plan of Treatment DateCare ActivityDetailAuthorStart: 08-91-2401Zndpbjyccqf Syncytial Virus (RSV) or age 60 yrs+ (1 - 1-dose 75+ series)Respiratory Syncytial Virus (RSV) or age 60 yrs+ (1 - 1-dose 75+ series)[facility] WilliamsburgStart: 10-58-7119Teuoplvhi for malignant neoplasm of colonNOHI HealthcareStart: 52-42-6901Ayqoe screening for proteinDiabetes: Urine Protein ScreeningNOHI HealthcareStart: 08-16-2025 End: 08-56-6690Vtqmulx encounter pffoflqvs07/03/2026 9:00 AM EST Office Visit [facility] [address] [place] [phone] Tulio Ruggiero MD [address] [place] [phone] [facility] FMStart: 30-73-5481Bbuvjljgn vaccinationInfluenza Vaccine (#1)[facility] HealthcareStart: 75-09-8847Geckubkk screeningDiabetes: Retinopathy Screening [facility] HealthcareStart: 65-74-2086Elodvajgj vaccinationFlu vaccine (#1)[facility]burgStart: 30-84-5012Vqgzr screening for proteinDiabetes: Urine Protein ScreeningCrittenton Behavioral HealthStart: 01-12-2025 End: 73-48-8275Zgpmvyfpob A1c/Hemoglobin.total in BloodHemoglobin A1c Lab Routine Type 2 diabetes mellitus with hyperglycemia, without long-term current use of insulin (HCC) Expected: 01/12/2025 (Approximate), Expires: 01/12/2026[facility] HealthcareComment on above:Expected: 01/12/2025 (Approximate), Expires: 01/12/2026Start: 01-12-2025 End: 68-47-7527Ywofajfdmswa/Creatinine panel in random UrineMicroalbumin / creatinine, urine ratio Lab Routine Type 2 diabetes mellitus with hyperglycemia, without long-term current use of insulin (HCC) Expected: 01/12/2025 (Approximate), Expires: 01/12/2026[facility] Work Phone: Comment on above:Expected: 01/12/2025 (Approximate), Expires: 01/12/2026Start: 01-12-2025 End: 25-87-9242Vpubsvv encounter procedureNO [facility] FMComment on above:Arrived Start: 10-19-2024 End: 75-36-2582Zlpjixp antibody IgGRubeola antibody IgG Lab Routine Annual physical exam Expected: 10/19/2024 (Approximate), Expires: 10/19/2025[facility] Work Phone: Comment on above:Expected: 10/19/2024 (Approximate), Expires: 10/19/2025Start: 10-13-2024 End: 00-01-8788Heyjdpm encounter qqolpfstf86/02/2025 1:15 PM EDT Office Visit [facility] [address] [place] [phone] Tulio Ruggiero MD [address] [place] [address] ArrivedNOMCBR[facility] FMComment on above:ArrivedStart: 92-92-9176FPUIP-19 Vaccine ( season)COVID-19 Vaccine ( season)[facility]burgStart: 08-05-2024 End: 79-19-2573Adjxy metabolic 1998 panel - Serum or PlasmaBasic metabolic panel Lab Routine Encounter for long-term current use of medication Expected: 2024 (Approximate), Expires: 08/05/2025NOHI HealthcareComment on above:Expected: 08/05/2024 (Approximate), Expires: 08/05/2025Start: 08-05-2024 End: 19-12-5628QDE W Auto Differential panel - BloodCBC and differential Lab Routine Encounter for long-term current use of medication Expected: 08/05/2024 (Approximate), Expires: 08/05/2025[facility] HealthcareComment on above:Expected: 08/05/2024 (Approximate), Expires: 08/05/2025Start: 08-05-2024 End: 98-74-8210Eqpdzpsbuf A1c/Hemoglobin.total in BloodHemoglobin A1c Lab Routine Type 2 diabetes mellitus with hyperglycemia, without long-term current use of insulin ([facility]) Expected: 08/05/2024 (Approximate), Expires: 08/05/2025 [facility] Healthcare Work Phone: Comment on above:Expected: 08/05/2024 (Approximate), Expires: 08/05/2025Start: 08-05-2024 End: 06-07-8618Ctkdsxn function 2000 panel - Serum or PlasmaHepatic function panel Lab Routine Encounter for long-term current use of medication Expected: 08/05/2024 (Approximate), Expires: 08/05/2025[facility] HealthcareComment on above: Expected: 08/05/2024 (Approximate), Expires: 08/05/2025Start: 08-05-2024 End: 15-74-3941Iyjlp 1996 panel - Serum or PlasmaLipid panel Lab Routine Dyslipidemia ([facility]) Expected: 08/05/2024 (Approximate), Expires: 08/05/2025 [facility] HealthcareComment on above:Expected: 08/05/2024 (Approximate), Expires: 08/05/2025Start: 08-05-2024 End: 84-79-6150Bcelsajg specific Ag [Mass/volume] in Serum or PlasmaPSA Lab Routine Screening PSA (prostate specific antigen) Expected: 08/05/2024 (Approximate), Expires: 08/05/2025[facility] HealthcareComment on above:Expected: 08/05/2024 (Approximate), Expires: 08/05/2025Start: 08-05-2024 End: 23-96-2216Xnkftmwxmqz [Units/volume] in Serum or PlasmaTSH Lab Routine Class 2 severe obesity due to excess calories with serious comorbidity and body mass index (BMI) of 37.0 to 37.9 in adult ([facility]) Expected: 08/05/2024 (Approximate), Expires: 08/05/2025[facility] HealthcareComment on above:Expected: 08/05/2024 (Approximate), Expires: 08/05/2025Start: 26-98-7091Qzmqxmfbqw A1c measurementDiabetes: Hemoglobin M8QABDO HealthcareStart: 07-15-2024 End: 03-04-5560Wntin metabolic 1998 panel - Serum or PlasmaBasic metabolic panel Lab Routine Annual physical exam Expected: 07/15/2024 (Approximate), Expires: 07/15/2025[facility] HealthcareComment on above:Expected: 07/15/2024 (Approximate), Expires: 07/15/2025Start: 07-15-2024 End: 41-81-4222FOZ W Auto Differential panel - BloodCBC and differential Lab Routine Annual physical exam Expected: 07/15/2024 (Approximate), Expires: 0 07/15/2025[facility] HealthcareComment on above:Expected: 07/15/2024 (Approximate), Expires: 07/15/2025Start: 07-15-2024 End: 96-59-3098Bbwcgdvjpx A1c/Hemoglobin.total in BloodHemoglobin A1c Lab Routine Annual physical exam Expected: 07/15/2024 (Approximate), Expires: 07/15/2025[facility] Work Phone: Comment on above:Expected: 07/15/2024 (Approximate), Expires: 07/15/2025Start: 07-15-2024 End: 10-14-0135Csxoevw function 2000 panel - Serum or PlasmaHepatic function panel Lab Routine Annual physical exam Expected: 07/15/2024 (Approximate), Expires: 07/15/2025[facility] HealthcareComment on above:Expected: 07/15/2024 (Approximate), Expires: 07/15/2025Start: 07-15-2024 End: 51-61-1909Esjnv 1996 panel - Serum or PlasmaLipid panel Lab Routine Annual physical exam Expected: 07/15/2024 (Approximate), Expires: 07/15/2025[facility] HealthcareComment on above:Expected: 07/15/2024 (Approximate), Expires: 07/15/2025Start: 07-15-2024 End: 72-26-1660Emdecoag specific Ag [Mass/volume] in Serum or PlasmaPSA Lab Routine Annual physical exam Expected: 07/15/2024 (Approximate), Expires: 07/15/2025[facility] HealthcareComment on above:Expected: 07/15/2024 (Approximate), Expires: 07/15/2025Start: 07-15-2024 End: 87-26-9294Mbegjiiehqa [Units/volume] in Serum or PlasmaTSH Lab Routine Annual physical exam Expected: 07/15/2024 (Approximate), Expires: 07/15/2025[facility] HealthcareComment on above:Expected: 07/15/2024 (Approximate), Expires: 07/15/2025Start: 07-15-2024 End: 64-16-5016Bkfvkzi encounter procedureNOMS [facility] FMComment on above:Arrived Start: 83-10-1507Gycsxrcwv vaccinationInfluenza Vaccine (#1)[facility] Start: 59-11-4781Aaaywtneli A1c measurementDiabetes: Hemoglobin N9EQFKY HealthcareStart: 72-89-1406Whyfgqmxcorn 50+ years Vaccine (2 of 2 - PCV) Pneumococcal 50+ years Vaccine (2 of 2 - PCV)[facility]Start: 73-80-2807Vqhwnpehupbw Vaccine: 65+ Years (2 of 2 - PCV)Pneumococcal Vaccine: 65+ Years (2 of 2 - PCV)[facility] HealthcareStart: 07-16-5807Rujcfsuc vaccine (1 of 2)Shingles vaccine (1 of 2)[facility]Start: 73-19-2417Nazontudw for malignant neoplasm of colonR[facility]ide [facility]' [facility] WilliamsburgStart: 39-61-7541Nkvpd panelLipidsRiverside Doctors' Hospital WilliamsburgStart: 48-45-8571XDlC/Tdap/Td vaccine (1 - Tdap)DTaP/Tdap/Td vaccine (1 - Tdap)[facility]burgStart: 1975 Urine screening for proteinDiabetes: Urine Protein ScreeningCrittenton Behavioral Health Start: 38-27-4924Zzrvgxout C screeningHepatitis C screenRiverside Doctors' Hospital [facility] Start: 13-11-3656Ekejtvysqp ScreenDepression [facility] Start: 67-36-5302Elxiiingz for malignant neoplasm of colonCASTLEVIEW HOSPITAL Healthcare Immunizations Immunization DateImmunizationNotesCare AqkumxlhHkdyvhrc60-21-1621owzevevvo virus vaccine, unspecified formulationJENNIFER DAVID [facility]10-08-2023SARS-CoV-2 mRNA (tozinameran 5y-11y) vaccineJENNIFER DAVID 800-2946Takqzf-OufdoProtestant Hospital on above: Result Comment: covid 19 mRNA (cvs)40-94-2953cmplkmhkt virus vaccine, unspecified formulationTulio Ruggiero MD Work Phone: [facility] HealthNnkrzaaggx59-34-1555ixrcfgbbj virus vaccine, unspecified formulationJENNIFER DAVID [facility]09-10-2022SARS-CoV-2 (COVID-19) mRNAMUL.ORD![id number] DAVID [facility]04-12-2022SARS-CoV-2 mRNA (adenyyzqjzc-iapi-bsnkspi) vaccineJENNIFER DAVID [facility]11-14-2021pneumococcal polysaccharide vaccine, 23 valentJENNIFER DAVID [facility]10-24-2021SARS-CoV-2 (COVID-19) mRNA BNT-162b2 vaxJENNIFER DAVID [facility] on above:Result Comment: 2022-05-29: NAP9714-98-4453pnidxwwgm virus vaccine, unspecified formulationJENNIFER DAVID [facility]03-08-2021SARS-CoV-2 (COVID-19) mRNA BNT-162b2 vaxJENNIFER DAVID General Surgery Ybylngyi15-37-3632mmhvchhdv virus vaccine, unspecified formulationJENNIFER DAVID General Surgery Yyjwgrjy87-12-7372aztjqvcac virus vaccine, unspecified formulationJENNIFER DAVID [facility]10-08-2018influenza virus vaccine, unspecified formulationJENNIFER DAVID [facility]09-11-2018influenza virus vaccine, unspecified formulationJENNIFER DAVID [facility]10-19-2013influenza virus vaccine, unspecified formulationJENNIFER DAVID [facility] Payers DatePayer CategoryPayerPolicy [id number] [id number] 2023Medicare2023 [id number]5 [id number] [id number] 2.16.840.1.545280.19 [id number] [id number] 2.16.840.1.985628.3.57[id number] 2.16.840.1.763827.3.57[id number] 2.16.840.1.540109.3.579.2.56978-54-9560Nhnefqm1769456 2.16.840.1.379415.3.579.2.08262-64-7099Htkofpc9256943 2.16.840.1.253288.3.57[id number] 2.16.840.1.987287.3.579.2.23013-94-4411Uczntaf3685687 2.16.840.1.932820.3.579.2.06695-98-3882Mhochlm9310049 2.16.840.1.830772.3.579.2.48229-19-0702Uoepysn8014795 2.16.840.1.950813.3.579.2.95278-94-1553Ppawayt8064347 2.16.840.1.573836.3.579.2.13688-82-6861Fudizeg0943639 2.16.840.1.724101.3.579.2.99236-36-5335Criotgt9296445 2.16.840.1.258228.3.579.2.95192-91-8965Pvlcmbj7277174 2.16.840.1.719988.3.579.2.99537-48-3715Bvyaxwh1539148 2.16.840.1.045806.3.579.2.27850-06-5813Fibwzqk1505824 2.16.840.1.350546.3.579.2.61143-72-5315Vfmgzzm5521972 2.16.840.1.945690.3.579.2.72756-53-0696Oyyaedt6908983 2.16.840.1.639486.3.579.2.14261-27-1817Fxuwwhk2908491 2.16.840.1.598742.3.579.2.62978-26-0504Uwufibf3255039 2.16.840.1.710282.3.579.2.92380-00-8645Iydunqx1412885 2.16.840.1.478719.3.579.2.51213-23-2108Vtlcmep1350926 2.16.840.1.273039.3.579.2.97132-37-3987Uypqpjf9660731 2.16.840.1.555856.3.579.2.60708-36-3500Urjwutk4963429 2.16.840.1.482486.3.579.2.31083-85-3143Zqbqdpf3168730 2.16.840.1.054907.3.579.2.93471-57-7512Tvoveey7575911 2.16.840.1.853850.3.579.2.79372-13-6300Dcwzodu3250799 2.16.840.1.754883.3.579.2.39881-06-7115Vniunnz3315435 2.16.840.1.367908.3.579.2.49921-89-7799Afyaxag5125992 2.16.840.1.690195.3.579.2.40358-41-8622Plorzlh9216479 2.16.840.1.409433.3.579.2.25681-56-1898Kiqhpsl9563302 2.16.840.1.059997.3.579.2.63219-16-2603Rtuhrhu3879109 2.16.840.1.664898.3.579.2.84799-94-0747Madpdjf3302749 2.16.840.1.079993.3.579.2.45926-38-7760Graifdl7328986 2.16.840.1.235652.3.579.2.03178-92-2260Akrkkcy1472843 2.16.840.1.195519.3.579.2.02650-08-9940Pzjvmpi0951222 2.16.840.1.478137.3.579.2.55054-88-6187Blqocad9903978 2.16.840.1.193274.3.579.2.51337-66-8510Vsprdje0331763 2.16.840.1.754202.3.579.2.12452-00-6459Ccejpot9605764 2.16.840.1.361612.3.579.2.97258-07-3917Daagcbu8895389 2.16.840.1.560209.3.579.2.96081-98-1729Muxyufo7243281 2.16.840.1.323866.3.579.2.14251-50-5221Ywgnaye167501647 2.16.840.1.229150.3.579.2.01447-93-2654Jcycstg451311213 2.16.840.1.253796.3.579.2.66695-79-9209Shhjfsx01389429 2.16.840.1.828094.3.579.2.507988-80-0221Bakrqzq8380787 2.16.840.1.983739.3.579.2.650946-31-9560Yzfiyyy0529736 2.16.840.1.127640.3.579.2.687043-01-0029Ifixxww33208923 2.16.840.1.792500.3.579.2.18874-51-4869Ozlvddn46052928 2.16.840.1.036254.3.579.2.50156-57-4184Wewptbf42788829 2.16.840.1.634237.3.579.2.727 Social History DateTypeDetailFacilityStart: 01-12-2024 End: 37-76-0165Atu [facility] At [facility] Hospitaltart: 03-10-2023 End: 00-46-1422Sdnwqvk smoking statusNever smoked tobacco (finding)[facility] Hospitaltart: 48-63-4624Wzmtobp smoking statusNeverExecutive Urology [facility] Centertart: 92-59-7136Lohuubm use and exposureSmokeless tobacco non-userNOMS Healthcare Start: 01-12-2024 End: 98-69-8077Axqmijh of Social functionNOMS HealthcareStart: 08-30-0205Bss assigned at [facility] systemNot on [facility] HealthcareTobacco smoking status NHISTobacco smoking consumption unknownR[facility]ide Doctors' [facility]burgStart: 71-16-4749HmeBlqp (finding)[facility] Functional Status CjpeWfqsqydhviFdwhstFmptfcmz93-19-2228Dawdakielb StatusN/A[facility]04-23-2024Functional StatusN/A[facility]11-21-2023Functional StatusN/A [facility] Clinical Notes 04-12-2021 to 01-12-2025 Note Date & KoeaRarzOntroyhx29-11-7427 History of Present illness Narrative* Tulio Ruggiero MD - 01/12/2025 9:44 AM EDTAssociated Problem(s): Type 2 diabetes mellitus with hyperglycemia, without long-term current use of insulin ([facility]) Reports BS controlled and [...] (BMI) of 37.0 to 37.9 in adult ([facility]) Weight loss indicated. * Tulio Ruggiero MD [...] index (BMI) of37.0 to 37.9 in adult ([facility]) Weight loss indicated. Type 2 diabetes mellitus with hyperglycemia, without long-term current use of insulin ([facility]) - Primary Reports BS controlled and due for A1C. Stick to ADA diet and limit carbs. Relevant Orders Microalbumin / creatinine, urine ratio Hemoglobin A1c Seasonal allergic rhinitis due to pollen Symptoms controlled with medication and continue. Primary insomnia Sleeping well with medication and continue. documented in this encounterCrittenton Behavioral HealthXeimcgzurm50-80-5633 History of Present illness Narrative* Tulio Ruggeiro MD - 10/13/2024 1:51 PM EDTAssociated Problem(s): [...] 800-160 MG per tablet documented in this encounterCrittenton Behavioral HealthZaleqrilfc59-25-5284 NoteProcedure: AP view of the orbits. Clinical [...] Is Signed, Electronically Signed in Other Vendor System)[facility]01-02-2025 History of Present illness Narrative* Tulio Ruggiero MD - 07/15/2024 9:51 AM ESTAssociated Problem(s): Dyslipidemia (CMS/HCC) Due for labs. * Tulio Ruggiero MD - 07/15/2024 9:50 AM ESTAssociated Problem(s): Class 2 severe obesity due to excess calories with serious comorbidity and body mass index (BMI) of 37.0 to 37.9 in adult ([facility]) Weight down 9 pounds in past year. Continue exercise and diet changes. * Tulio Ruggiero MD - 07/15/2024 9:49 AM ESTAssociated Problem(s): Polyneuropathy due to type 2 diabetes mellitus ([facility]) Neuropathy stable and continue neurontin. * Tulio Ruggiero MD - 07/15/2024 9:48 AM ESTAssociated Problem(s): Type 2 diabetes mellitus with hyperglycemia, without long-term current use of insulin ([facility]) Reports BS controlled and [...] index (BMI) of37.0 to 37.9 in adult ([facility]) Weight down 9 pounds in past year. Continue exercise and diet changes. Type 2 diabetes mellitus with hyperglycemia, without long-term current use of insulin ([facility]) Reports BS controlled and due for A1C. Stick to ADA diet and limit carbs. Polyneuropathy due to type 2 diabetes mellitus ([facility]) Neuropathy stable and continue [...] palpitations. Recommend routine PAT. documented in this encounterCrittenton Behavioral HealthExjeenlilm92-59-3129 Hospital Discharge instructions Patient Education 05/27/2024 09:56:36 Kidney Stones, Xrzb-op-Onny Kidney Stones Kidney stones are rock-like masses [...] Follow these instructions at home: Medicines Take dynj-gjb-rbyvici and prescription medicines only as told by [...] provider. Document Revised: 02/21/2023 Document Reviewed: 02/21/2023 [employer] Patient Education 2023 [employer]. Follow Up Care 11/04/2023 09:32:44 With:LIZ ABREU PA-C, URL Address: When:1 year [facility] 11-14-2024 NotePatient Education Urology Kidney Stones [...] these instructions at home: Medicines ??? Take ngcz-ktr-jxoiyir and prescription medicines only as told by [...] provider. Document Revised: 02/21/2023 Document Reviewed: 02/21/2023 [employer] Patient Education ? 2023 [employer].[facility] 11-04-2023 Hospital Discharge instructions Patient Education [...] Follow these instructions at home: Medicines Take vyhx-col-znyvfid and prescription medicines only as told by [...] provider. Document Revised: 09/26/2021 Document Reviewed: 09/26/2021 [employer] Patient Education 2022 [employer]. Follow Up Care 06/03/2023 10:28:55 With:LIZ ABREU PA-C, URL Address: [address] [facility] [place] [address] [phone] When: Unknown [facility] 11-21-2023 Hospital Discharge instructions Patient Education [...] treatment? Where to find more information [employer] [employer]: www.cancer.org [employer] [employer]: www.auanet.org Contact a health care [...] provider. Document Revised: 12/24/2021 Document Reviewed: 12/24/2021 [employer] Patient Education 2022 [employer]. Follow Up Care 05/29/2022 11:47:27 With:DAVID IVAN, LIZ Juarez, URL Address: [address] [address] [phone] When: Unknown Comments:6 mos w/ PSA [facility] 05-23-2023 NotePROCEDURE: XR FOOT LT MIN [...] authenticated by: ELIN MCCARTNEY Date: 2022-12-03 09:57[facility][id number] NotePROCEDURE: XR FOOT LT MIN 3 VIEWS [...] Electronically authenticated by: ZAFAR FERRER Date: 2022-11-12 13:59[facility]04-11-2023 NotePROCEDURE: XR FOOT LT MIN [...] Electronically authenticated by: ELIN MCCARTNEY Date: 2022-10-22 07:48[facility]04-11-2023 NotePROCEDURE: XR FOOT LT 2V HISTORY: Pain COMPARISON: XR foot left 10/21/2022 FINDINGS: BONES:Multiple intraoperative spot fluoroscopic images demonstrate mechanical fusion of the first metatarsophalangeal joint and resection of head of first proximal phalanx. IMPRESSION: 1. Surgical changes of left first toe as detailed above. Electronically authenticated by: ELIN MCCARTNEY Date: 2022-10-22 07:46[facility]01-18-2023 NoteCurrently stableUnRegional Medical Center01-18-2023 NoteHypertension is well controlled 114/64 Continue lisinopril 5 mg Recent CR elevated 1.59- his cr typically has been 1.2-1.4 - He has been on antibiotics for Lt foot infection- DFU with wound care. [facility]01-18-2023 NoteLipid abnormalities are currently well controlled with lipitor 20 mg- LDL currently 58.6 on labs 07/26/2022 Liver function 04/2022 were normalUnRegional Medical Center01-18-2023 NoteUTP CARDIOLOGY PROGRESS NOTE HPI: [...] stable RTC 1 year or earlier if neededUnRegional Medical Center01-18-2023 NotePatient here for 6 mo follow up history of PE and hyperlipidemia. Had labs in Apr and echo in Jun 2022. Patient denies chest pain, SOB, and increase in LE edema. Doing very well from cardiac standpoint. Was seeing Dr. Steele for his varicose veins. Review of Systems Cardiovascular: Positive for leg swelling. All other systems reviewed and are negative.[facility] 07-31-2022 NoteCONSULTATION PROCEDURE DATE: 07/31/2022 INDICATIONS: [...] in the clinic in three months' time.[id number] Note CONSULTATION CONSULTATION DATE: 07/25/2022 HISTORY OF [...] a [place] vacation, where he visited multiple [employer] mayes and had a lot of increased [...] plan and will be contacted upon approval.[facility]-[id number] NotePROCEDURE: XR FOOT LT MIN 3 VIEWS [...] authenticated by: ELIN MCCARTNEY Date: 2022-07-24 10:21[facility]-[id number] NotePROCEDURE: XR KNEE LT 4V or > HISTORY: Pain in left knee ; chronic left knee pain COMPARISON: XR knee bilateral 05/31/2021 FINDINGS: BONES:Marked narrowing of the medial joint space with suspected mgtz-za-casg articulation. Moderate-marked narrowing of the lateral compartment. Mild narrowing of anterior compartment. Small periarticular osteophytes involving the margins of all 3 compartments. No fracture or dislocation. SOFT TISSUES:No visible soft tissue swelling. EFFUSION:Small joint effusion. OTHER: Negative. IMPRESSION: 1. Marked degenerative joint disease. Stable to minimally progressed. Electronically authenticated by: ELIN MCCARTNEY Date: 2022-06-10 19:35[facility]-[id number] Evaluation note* Encounter Date Diagnosis Assessment Notes [...] May,ain in left knee (ICD-10 - M25.562) [employer] Other 10-11-2022 NoteCONSULTATION CONSULTATION DATE: 04/23/2022 CHIEF [...] the time being. CC: Felisa Berrios M.D.[id number] NoteCONSULTATION CONSULTATION DATE: 04/04/2022 HISTORY OF PRESENT [...] of care.[id number] Note CONSULTATION CONSULTATION DATE: 02/14/2022 HISTORY OF [...] acknowledges understanding.[id number] NoteCONSULTATION PROCEDURE DATE: 02/14/2022 PREOPERATIVE DIAGNOSIS: Bilateral [...] the office.[id number] Evaluation note* Encounter Date Diagnosis Assessment Notes [...] Jul,ain in left knee (ICD-10 - M25.562) [facility] Other 09-30-2021 Evaluation note* Encounter Date Diagnosis Assessment Notes Treatment Notes Treatment Clinical Notes Mar, Liver hemangioma (ICD-10 - D18.0 3) Mar,NASH (nonalcoholic steatohepatitis) (ICD-10 - K75.81) [facility] Other Evaluation + Plan note Future Appointments Appointment Date:11/04/2023 08:30:00 AM Scheduled Provider:LIZ ABREU PA-C Location:[facility] Appointment Type:URO Office Visit Diagnostic Tests Pending * PSA Total 06/03/23 [facility] evaluation + Plan note Future Appointments Appointment Date:05/25/2024 08:40:00 AM Scheduled Provider:LIZ ABREU PA-C Location:[facility] Appointment Type:URO Office Visit [facility] evaluation note* Diagnosis Polyneuropathy due to type 2 diabetes mellitus ([facility]) documented in [facility] encounter [facility]* Diagnosis Male hypogonadism Other testicular hypofunction documented in this encounter [facility]* Diagnosis Annual physical exam- Primary Routine general medical examination at a [facility] care facility Type 2 diabetes mellitus with hyperglycemia, without long-term current use of insulin ([facility]) Type 2 diabetes mellitus with hyperglycemia, without long-term current use of insulin ([facility])- Primary Arthritis, gouty Gouty arthropathy, [...] hyperglycemia, without long-term current use of insulin ([facility]) Arthritis, gouty Gouty arthropathy, unspecified 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) Class 2 severe obesity due to excess calories with serious comorbidity and body mass index (BMI) of37.0 to 37.9 in adult (CMS/[facility]) Dyslipidemia (CMS/[facility]) Other and unspecified hyperlipidemia documented in this encounter [facility] Healthcare[facility]* Diagnosis Annual physical exam- Primary Routine general medical examination at a health care facility Type 2 diabetes mellitus with hyperglycemia, without long-term current use of insulin ([facility]) Type 2 diabetes mellitus with hyperglycemia, without long-term current use of insulin ([facility])- Primary Arthritis, gouty Gouty arthropathy, unspecified Seasonal allergic rhinitis due to pollen DDD (degenerative disc disease), lumbar Degeneration of lumbar or lumbosacral intervertebral disc Polyneuropathy due to type 2 diabetes mellitus ([facility]) Primary insomnia Persistent disorder of initiating or maintaining sleep Annual physical exam- Primary Routine general medical examination at a health care facility Encounter for preoperative assessment Type 2 diabetes mellitus with hyperglycemia, without long-term current use of insulin ([facility]) Arthritis, gouty Gouty arthropathy, unspecified Polyneuropathy due to type 2 diabetes mellitus ([facility]) Class 2 severe obesity due to excess calories with serious comorbidity and body mass index (BMI) of37.0 to 37.9 in adult ([facility]) Dyslipidemia ([facility]) Other and unspecified hyperlipidemia Type 2 diabetes mellitus with hyperglycemia, without long-term current use of insulin ([facility])- Primary Dyslipidemia ([facility]) Other and unspecified hyperlipidemia Class 2 severe obesity due to excess calories with serious comorbidity and body mass index (BMI) of37.0 to 37.9 in adult ([facility]) Encounter for long-term current use of medication Screening PSA (prostate specific antigen) Special screening for malignant neoplasm of prostate documented in this encounter [facility] HealthcareEvaluation note* Diagnosis Annual physical exam- Primary Routine general medical examination at a [facility] care facility Type 2 diabetes mellitus with hyperglycemia, without long-term current use of insulin ([facility]) Type 2 diabetes mellitus with hyperglycemia, without long-term current use of insulin ([facility])- Primary Arthritis, gouty Gouty arthropathy, unspecified Seasonal allergic rhinitis due to pollen DDD (degenerative disc disease), lumbar Degeneration of lumbar or lumbosacral intervertebral disc Polyneuropathy due to type 2 diabetes mellitus ([facility]) Primary insomnia Persistent disorder of initiating or maintaining sleep Annual physical exam- Primary Routine general medical examination at a health care facility Encounter for preoperative assessment Type 2 diabetes mellitus with hyperglycemia, without long-term current use of insulin ([facility]) Arthritis, gouty Gouty arthropathy, unspecified Polyneuropathy due to type 2 diabetes mellitus ([facility]) Class 2 severe obesity due to excess calories with serious comorbidity and body mass index (BMI) of37.0 to 37.9 in adult ([facility]) Dyslipidemia ([facility]) Other and unspecified hyperlipidemia Morbid obesity ([facility]) Morbid obesity Polyneuropathy due to type 2 diabetes mellitus ([facility]) Type 2 diabetes mellitus with hyperglycemia, without long-term current use of insulin ([facility]) documented in this encounter [facility] HealthcareEvaluation note* Diagnosis Annual physical exam- Primary Routine general medical examination at a health care facility Type 2 diabetes mellitus with hyperglycemia, without long-term current use of insulin ([facility]) Type 2 diabetes mellitus with hyperglycemia, without long-term current use of insulin ([facility])- Primary Arthritis, gouty Gouty arthropathy, unspecified Seasonal allergic rhinitis due to pollen DDD (degenerative disc disease), lumbar Degeneration of lumbar or lumbosacral intervertebral disc Polyneuropathy due to type 2 diabetes mellitus ([facility]) Primary insomnia Persistent disorder of initiating or maintaining sleep Annual physical exam- Primary Routine general medical examination at a health care facility Encounter for preoperative assessment Type 2 diabetes mellitus with hyperglycemia, without long-term current use of insulin ([facility]) Arthritis, gouty Gouty arthropathy, unspecified Polyneuropathy due to type 2 diabetes mellitus ([facility]) Class 2 severe obesity due to excess calories with serious comorbidity and body mass index (BMI) of37.0 to 37.9 in adult ([facility]) Dyslipidemia ([facility]) Other and unspecified hyperlipidemia Abscess of abdominal wall- Primary Cellulitis and abscess of trunk documented in this encounter [facility] HealthcareEvaluation note* Diagnosis Annual physical exam- Primary Routine general medical examination at a health care facility Type 2 diabetes mellitus with hyperglycemia, without long-term current use of insulin ([facility]) Type 2 diabetes mellitus with hyperglycemia, without long-term current use of insulin ([facility])- Primary Arthritis, gouty Gouty arthropathy, unspecified Seasonal allergic rhinitis due to pollen DDD (degenerative disc disease), lumbar Degeneration of lumbar or lumbosacral intervertebral disc Polyneuropathy due to type 2 diabetes mellitus ([facility]) Primary insomnia Persistent disorder of initiating or maintaining sleep Annual physical exam- Primary Routine general medical examination at a health care facility Encounter for preoperative assessment Type 2 diabetes mellitus with hyperglycemia, without long-term current use of insulin ([facility]) Arthritis, gouty Gouty arthropathy, unspecified Polyneuropathy due to type 2 diabetes mellitus ([facility]) Class 2 severe obesity due to excess calories with serious comorbidity and body mass index (BMI) of37.0 to 37.9 in adult ([facility]) Dyslipidemia ([facility]/H[facility]) Other and unspecified hyperlipidemia Abscess of abdominal wall- Primary Cellulitis and abscess of trunk Annual physical exam- Primary Routine general medical examination at a health care facility Morbid obesity ([facility]) Morbid obesity Polyneuropathy due to type 2 diabetes mellitus ([facility]) Type 2 diabetes mellitus with hyperglycemia, without long-term current use of insulin ([facility]) Arthritis, gouty Gouty arthropathy, unspecified documented in this encounter [facility] HealthcareEvaluation note* Diagnosis Annual physical exam- Primary Routine general medical examination at a health care facility Type 2 diabetes mellitus with hyperglycemia, without long-term current use of insulin ([facility]) Type 2 diabetes mellitus with hyperglycemia, without long-term current use of insulin ([facility])- Primary Arthritis, gouty Gouty arthropathy, unspecified Seasonal allergic rhinitis due to pollen DDD (degenerative disc disease), lumbar Degeneration of lumbar or lumbosacral intervertebral disc Polyneuropathy due to type 2 diabetes mellitus ([facility]) Primary insomnia Persistent disorder of initiating or maintaining sleep Annual physical exam- Primary Routine general medical examination at a health care facility Encounter for preoperative assessment Type 2 diabetes mellitus with hyperglycemia, without long-term current use of insulin ([facility]) Arthritis, gouty Gouty arthropathy, unspecified Polyneuropathy due to type 2 diabetes mellitus ([facility]) Class 2 severe obesity due to excess calories with serious comorbidity and body mass index (BMI) of37.0 to 37.9 in adult ([facility]) Dyslipidemia ([facility]) Other and unspecified hyperlipidemia Abscess of abdominal wall- Primary Cellulitis and abscess of trunk Male hypogonadism Other testicular hypofunction documented in this encounter [facility] HealthcareEvaluation note* Diagnosis Annual physical exam- Primary Routine general medical examination at a health care facility Type 2 diabetes mellitus with hyperglycemia, without long-term current use of insulin ([facility]) Type 2 diabetes mellitus with hyperglycemia, without long-term current use of insulin ([facility])- Primary Arthritis, gouty Gouty arthropathy, unspecified Seasonal allergic rhinitis due to pollen DDD (degenerative disc disease), lumbar Degeneration of lumbar or lumbosacral intervertebral disc Polyneuropathy due to type 2 diabetes mellitus ([facility]) Primary insomnia Persistent disorder of [...] index (BMI) of37.0 to 37.9 in adult ([facility]) Dyslipidemia ([facility]/H[facility]) Other and unspecified hyperlipidemia Abscess of abdominal wall- Primary Cellulitis and abscess of trunk Polyneuropathy due to type 2 diabetes mellitus ([facility]) documented in this encounter [facility] HealthcareEvaluation note* Diagnosis Annual physical exam- [...] index (BMI) of37.0 to 37.9 in adult ([facility]) Dyslipidemia Other and unspecified hyperlipidemia Type 2 [...] index (BMI) of37.0 to 37.9 in adult ([facility]) Type 2 diabetes mellitus with diabetic chronic kidney disease (HCC) Chronic kidney disease, stage 3a ([facility]) documented in this encounter [facility] HealthcareEvaluation note* Diagnosis Aftercare following left knee joint replacement surgery documented in this encounter [facility] note* Diagnosis Annual physical exam- [...] hyperglycemia, without long-term current use of insulin ([facility]) Arthritis, gouty Gouty arthropathy, unspecified 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) Class 2 severe obesity due to excess calories with serious comorbidity and body mass index (BMI) of37.0 to 37.9 in adult ([facility]) Dyslipidemia Other and unspecified hyperlipidemia Type 2 diabetes mellitus with hyperglycemia, without long-term current use of insulin ([facility])- Primary Arthritis, gouty Gouty arthropathy, unspecified Seasonal allergic rhinitis due to pollen Primary insomnia Persistent disorder of initiating or maintaining sleep Degeneration of intervertebral disc of lumbar region with discogenic back pain Class 2 severe obesity due to excess calories with serious comorbidity and body mass index (BMI) of37.0 to 37.9 in adult ([facility]) Type 2 diabetes mellitus with diabetic chronic kidney disease (HCC) Chronic kidney disease, stage 3a ([facility]) 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) documented in this encounter [facility] general Narrative - Reported* Type Description Date Medical History DM II Medical HistoryHTNMedical HistoryhyperlipidemiaMedical HistorygoutSurgical Historyknee surgerySurgical HistorytonsillectomySurgical Historyvasectomy Surgical Historysinus surgerySurgical Historyback injectionsHospitalization HistorySEE ABOVE SURGICAL HX [facility] Other Hospital course Narrative No data available for this section [facility] progress note No data available for this section [facility] Summary Purpose Family History No Family [...] section and content) DATE CREATED AUTHOR 03/29/2021 [facility] DATE CREATED AUTHOR AUTHOR'S ORGANIZ ATION 08/06/2022 [facility] DATE CREATED AUTHOR AUTHOR'S ORGANIZ ATION 12/20/2022 [facility] DATE CREATED AUTHOR AUTHOR'S ORGANIZ ATION 07/28/2024 [facility] DATE CREATED AUTHOR AUTHOR'S ORGANIZ ATION 01/14/2025 [facility] DATE CREATED AUTHOR AUTHOR'S ORGANIZ ATION 02/04/2025 [facility] DATE CREATED AUTHOR AUTHOR'S ORGANIZ ATION 03/31/2025 [facility] REASON FOR VISIT (unrecogniz ed section and content) ReasonCommentsMed RefillReasonOnset DateCommentsMed Ekhonj9504/06/2024eason TmscidmoVwnwwp-rc1zQrfbvrRayjnkbpMuiexn-inPaip on stomach/ poppedReasonOnset DateCommentsMed Dmfwqz9611/08/2024ReasonOnset DateCommentsMed Yedufe8312/06/2024 Patient Care team informatio n (unrecognized section and content) Team MemberRelationshipSpecialtyStart DateEnd Date Tulio Ruggiero MD [address] [place] [address] PCP - Blanket Xhugeyoaci12/1/23 Tulio Ruggiero MD [address] [place] [address] PCP - GeneralFamily Medicine01/12/24Team MemberRelationshipSpecialtyStart DateEnd Date Tulio Ruggiero MD [address] [place] [address] PCP - Blanket Awvkhxkqlx58/1/23 Tulio Ruggiero MD [address] [place] [address] PCP - [facility] Medicine01/12/24Team MemberRelationshipSpecialtyStart DateEnd Date Tulio Ruggiero MD [address] [place] [address] PCP - Blanket Fvdndyrubw48/1/23 Tulio Ruggiero MD [address] [place] [address] PCP - [facility]01/12/24Team MemberRelationshipSpecialtyStart DateEnd Date Tulio Ruggiero MD [address] [place] [address] PCP - Blanket Rjqxdhywel92/1/23 Tulio Ruggiero MD [address] [place] [address] PCP - Generalmi Medicine01/12/24Team MemberRelationshipSpecialtyStart DateEnd Date Tulio Ruggiero MD [address] [place] [address] PCP - Blanket Twhjbmnmic88/1/23 Tulio Ruggiero MD [address] [place] [address] PCP - GeneralFamily Medicine01/12/24Team MemberRelationshipSpecialtyStart DateEnd Date Tulio Ruggiero MD [address] [place] [address] PCP - Blanket Rsvvlphnuv95/1/23 Tulio Ruggiero MD [address] [place] [address] PCP - Generalmi Medicine01/12/24Team MemberRelationshipSpecialtyStart DateEnd Date Tulio Ruggiero MD [address] [place] [address] PCP - Blanket Wwedfyvulc95/1/23 Tulio Ruggiero MD [address] [place] [address] PCP - Generalmily Medicine01/12/24Team MemberRelationshipSpecialtyStart DateEnd Date Tulio Ruggiero MD [address] [place] [address] PCP - GeneralFamily Medicine01/12/24Team MemberRelationshipSpecialtyStart DateEnd Date Tulio Ruggiero MD [address] [place] [address] PCP - GeneralFamily Medicine01/12/24Team MemberRelationshipSpecialtyStart DateEnd Date Tulio Ruggiero MD [address] [place] [address] PCP - GeneralFamily Medicine01/12/24Team MemberRelationshipSpecialtyStart DateEnd Date Tulio Ruggiero MD [address] [place] [address] PCP - GeneralFamily Medicine01/12/24Team MemberRelationshipSpecialtyStart DateEnd Date Tulio Ruggiero MD [address] [place] [address] PCP - GeneralFamily Medicine01/12/24Team MemberRelationshipSpecialtyStart DateEnd Date Tulio Ruggiero MD [address] [place] [address] PCP - GeneralFamily Medicine01/12/24Team MemberRelationshipSpecialtyStart DateEnd Date Tulio Ruggiero MD [address] [place] [address] PCP - GeneralFamily Medicine01/12/24Team MemberRelationshipSpecialtyStart DateEnd Date Tulio Ruggiero MD [address] [place] [address] PCP - GeneralFamily Medicine01/12/24Team MemberRelationshipSpecialtyStart DateEnd Date Tulio Ruggiero MD [address] [place] [address] PCP - GeneralFamily Medicine01/31/25Team MemberRelationshipSpecialtyStart DateEnd Date Tulio Ruggiero MD [address] [place] [address] PCP - Blanket Gltbwaqlhk54/1/ Tulio Ruggiero MD [address] [place] [address] PCP - GeneralFamily Medicine01/12/24Team MemberRelationshipSpecialtyStart DateEnd Date Tulio Ruggiero MD PCP - GeneralFamily Medicine Tulio Ruggiero MD [address] [place] [address] PCP - Blanket Xeqfctczom54/1/ Tulio Ruggiero MD [address] [place] [address] PCP - GeneralFamily Medicine01/12/24Team MemberRelationshipSpecialtyStart DateEnd Date Tulio Ruggiero MD PCP - GeneralFamily Medicine01/12/24Team MemberRelationshipSpecialtyStart DateEnd Date Tulio Ruggiero MD PCP - [facility]01/12/24Team MemberRelationshipSpecialtyStart DateEnd Date Tulio Ruggiero MD PCP - [facility] Medicine Tulio Ruggiero MD [address] [place] [address] [facility] - [facility] Tulio Ruggiero MD [address] [place] [address] [facility]01/12/24Team MemberRelationshipSpecialtyStart DateEnd Date Tulio Ruggiero MD [facility] - [facility]01/12/24 FOR RECORDS PERTAINING TO PATIENTS [...] BE BASED ON THE PRIMARY CLINICAL RECORDS. [facility] [employer] [facility]. provides no warranty or guarantee of the accuracy or completeness of information in this document.
--- OUTSIDE RECORDS SUMMARY | 2025-06-08 10:07 | XMS_ITS | Clinical Summary ---
Author Organization [facility] Healthcare Address [address] [place] [address] Care Team Providers Care Line Leader Name Role Phone Tulio Madrid MD Primary Care Provider [phone] Allergies Active AllergyReactionsCriticalityNoted WvgzQirewayhWrrssgnwp09/18/2023 Other Reaction(s): Hyperactive behavior, Other Oxycodone-AcetaminophenItching,RfhdNbw8107/31/2022 Medications MedicationSigDispense QuantityRefillsLast FilledStart DateEnd DateStatus allopurinol [...] long-term current use of insulin ([facility])TAKE 1 TABLET BY MOUTH EVERY DAY 90 [...] long-term current use of insulin ([facility])INJECT 2 MG SUBCUTANEOUSLY WEEKLY 9 mL 5Active febuxostat (Uloric) 40 MG tablet Indications:Type 2 diabetes mellitus with hyperglycemia, without long-term current use of insulin (HCC),Morbid obesity (CMS-HCC),Polyneuropathy due to type 2 diabetes mellitus ([facility])Take 1 tablet (40 mg) by mouth Daily [...] due to type 2 diabetes mellitus ([facility])TAKE 1 CAPSULE BY MOUTH IN THE MORNING, EVENING AND BEFORE BEDTIME 270 capsule 5Active Active Problems ProblemNoted DateDiagnosed DateEncounter for long-term current use of medication 08/05/2024Screening PSA (prostate specific antigen)08/05/2024Encounter for preoperative nkrcilkyye31/02/2025 Assessment & Plan (07/15/2024 9:48 AM EST): Able to proceed with upcoming surgery at low risk for complications. History of DM but controlled with medication. No CAD or HTN. Not having chest pain or palpitations. Recommend routine PAT. Seasonal allergic rhinitis due to lzfyav0201/12/2024 Assessment & Plan (01/12/2025 9:44 AM EDT): Symptoms controlled with medication and continue. Assessment & Plan (01/12/2024 9:44 AM EDT): Symptoms controlled with medication and continue. Primary tamnrtea10/01/2024 Assessment & Plan (01/12/2025 9:43 AM EDT): Sleeping well with medication and continue. Assessment & Plan (01/12/2024 9:44 AM EDT): Not sleeping well but wants to continue melatonin. If worsens can try trazodone. Polyneuropathy due to type 2 diabetes uxdrjebn25/10/2024 Assessment & Plan (07/15/2024 9:49 AM EST): Neuropathy stable and continue neurontin. Assessment & Plan (01/12/2024 9:44 AM EDT): Neuropathy stable and continue neurontin. Primary osteoarthritis of knees, /10/2024nnual physical exam 07/23/2023 Assessment & Plan (07/15/2024 [...] daily Aspirin therapy. DDD (degenerative disc disease), ktmpfd4806/26/2023 Assessment & Plan (01/12/2025 9:43 AM EDT): Pain stable and follow with pain management. Assessment & Plan (01/12/2024 9:44 AM EDT): Pain stable and follow with pain management. Ttlkhhmwtumg61/14/2023 Assessment & Plan (07/15/2024 9:51 AM EST): Due for labs. Arthritis, gouty108/27/2022 Assessment & Plan (01/12/2025 9:43 AM EDT): No flares and continue allopurinol. Assessment & Plan (01/12/2024 9:43 AM EDT): No flares and continue allopurinol. Male jgpupdomerln19/14/2023NAFL (nonalcoholic fatty liver)06/26/2023lass 2 severe obesity due [...] with hyperglycemia, without long-term current use of craxudl0506/26/2023 Assessment & Plan (01/12/2025 9:44 AM EDT): [...] Stick to ADA diet and limit carbs. Zypkckgqajup79/03/2023ge-related nuclear cataract of both eyes03/10/2023 Resolved Problems ProblemNoted DateDiagnosed DateResolved DateAbscess of abdominal wall10/13/2024 01/12/2025 Assessment & Plan (10/13/2024 1:51 PM EDT): Recent abscess but improved after drainage. Use heat PRN. Treat with bactrim. Cover with neosporin. Family History Medical HistoryRelationNameCommentsCancerFatherDiabetesFatherHypertensionFather DiabetesMotherHypertensionMotherRelationNameStatusCommentsFatherMother Social History Tobacco UseTypesPacks/DayYears UsedDateSmoking Tobacco: NeverSmokeless Tobacco: Never Tobacco Cessation:Counseling Given: Not Answered Sex and Gender InformationValueDate RecordedSex Assigned at BirthNot on file Legal OhhQifr7209/25/2022 7:24 PM EDTGender IdentityNot on fileSexual Orientation Not on file Last Filed Vital Signs Vital SignReadingTime TakenCommentsBlood Kxhxcfra747/8401/12/2025 8:53 AM EDT Plalr732401/12/2025 8:53 AM KULStjmlewjwih43.2 ??C (97.1 ??F)01/12/2025 8:53 AM EDTRespiratory Jeti235101/12/2025 8:53 AM EDTOxygen Cjwmksruxq92%01/12/2025 8:53 AM EDTInhaled Oxygen Concentration--Guzoyy823 kg (293 lb)01/12/2025 8:53 AM EDT Tilmws154 cm (6' 2 )01/12/2025 8:53 AM EDTBody Mass Index37.62001/12/2025 8:53 AM EDT Plan of Treatment Health MaintenanceDue DateLast DoneCommentsCT Ierzxczaccbx29/09/1957FIT-DNA 1956FIT1956FOBT1956 5361Cgaslxzfftgvf25/09/1957Pneumococcal Vaccine: 65+ Years (2 of 2 - PCV)OVID-19 Vaccine (2024- season)/, 04/20/2023, 04/20/2023, Additional history existsInfluenza Vaccine (#1)/01/2024, 04/12/2023, 04/17/2022, Additional history nkwulhXmizrvhhlfp56/02/202701/08/2016Colorectal Cancer Icoulkjgl77/02/2027 Insurance Care Teams Team MemberRelationshipSpecialtyStart DateEnd Date Tulio Madrid MD PCP - GeneralFamily Medicine01/12/24
== END 2025-06-08 10:02 | disposition home or self-care (01) ==
LOC: US 10:01
PROVIDERS: PCP Family Medicine; Visit Provider Nurse Practitioner Family
DX: N20.0 Calculus of kidney (principal); N13.30 Unspecified hydronephrosis; K76.0 Fatty (change of) liver, not elsewhere classified
CPT/HCPCS: 76775

== ENCOUNTER 2025-06-13 11:06 | Outpatient (OUT) | payer MEDICARE, OTHER, SELFPAY ==
--- OUTSIDE RECORDS SUMMARY | 2024-08-23 09:00 | XMS_ITS ---
Author Organization [facility] Address [address] [place] [address] Care Team Providers Care Tuber Machine Operator Name Role Phone Tulio Madrid Primary Care Provider Julissa chris Daniele Valencia Unavailable [phone] REASON FOR VISIT 1ST POST OP LEFT TKA 08/09 Problems Problem Type SNOMED Code ICD Code Onset Dates Problem Status W/U Status Risk Notes Problem History of musculosk eletal operation (271579511) Aftercare following joint replacement surgery (Z47.1) ActiveconfirmedProblemArtificial knee joint present (763496238368)Presence of left artificial knee joint (Z96.652)Activeconfirmed Encounters Encounter Location Date Provider Diagnosis [facility] Office [address] [place] [address] [place] [address] 08/23/2024 Daniele Valencia Aftercare following joint replacement [...] Date SCC- KNEE 2 VIEW LEFT - 71602 08/23/2024 Progress Notes * CARLOS LOCKE CDOB: [birth year] (69 yo M)Acc No.[id number]:08/23/2024 Progress Notes Patient: Etelvina BONDCARLOS :?Daniele Valencia, DODOB:1955???Age:69 Y ???Sex:MaleDate:08/23/2024Phone:[phone]:[address], [id number]:Tulio Madrid Subjective: * Chief Complaints: * 1 . 1ST POST OP LEFT TKA 08/09. * Medical History: Objective: * Vitals: Assessment: * Assessment: 1.?Aftercare following joint replacement surgery - Z47.1 (Primary)???2.?Presence of left artificial knee joint - Z96.652??? Plan: * Treatment: ?Imaging: SCC- KNEE 2 VIEW LEFT - 270146.?Presence of left artificial knee joint?Imaging: SCC- KNEE 2 VIEW LEFT - 10606 Forms: * Images: * Electronic signature of Daniele Valencia DO on 06/13/2025 at 11:09 AM ESTSign off status: Pending * Provider: Noa Valencia DO Date: 0 08/23/2024 Generated for Printing/Faxing/eTransmitting on:?06/13/2025 11:09 AM EST
--- OUTSIDE RECORDS SUMMARY | 2024-11-22 08:10 | XMS_ITS ---
Author Organization [facility] Address [address] [place] [address] Care Team Providers Care Appliance Tester Name Role Phone Tulio Madrid Primary Care Provider Daniele Ruffin Unavailable [phone] REASON FOR VISIT LEFT KNEE RECHECK DOS 02.10 Encounters Encounter Location Date Provider Diagnosis [facility] Office [address] [place] [address] [place] [address] 11/22/2024 Daniele Valencia Aftercare following joint replacement surgery Z47.1 Assessments Encounter Date Diagnosis (ICD Code) Assessment Notes Treatment Notes Treatment Clinical Notes Section Notes 11/22/2024 Aftercare following joint replac ement surgery (ICD-10 - Z47.1) Plan Of Treatment Pending Test Test Name Order Date SCC- KNEE 2 VIEW LEFT - [id number] 11/22/2024 Progress Notes * CARLOS LOCKE CDOB: [birth year] (69 yo M)Acc No.[id number]:11/22/2024 Patient:?CARLOS LOCKE :?Daniele Valencia, DODOB:1955???Age:69 Y ???Sex:MaleDate:11/22/2024Phone:[phone]:[place]AR[place] [id number]:Tulio Madrid Subjective: * Chief Complaints: * 1 . LEFT KNEE RECHECK DOS 02.10. * Medical History: Objective: * Vitals: Assessment: * Assessment: 1.?Aftercare following joint replacement surgery - Z47.1 (Primary)??? Plan: * Treatment: ?Imaging: SCC- KNEE 2 VIEW LEFT - 83191 * Procedure Codes: 7 3560 X-ray Knee, 2 view Forms: * Images: * Electronic signature of Daniele Valencia DO on 06/13/2025 at 11:09 AM ESTSign off status: Pending * Provider: Noa Valencia DO Date: 0 11/22/2024 Generated for Printing/Faxing/eTransmitting on:?06/13/2025 11:09 AM EST
--- OUTSIDE RECORDS SUMMARY | 2025-06-13 11:09 | XMS_ITS | Clinical Summary ---
Author Organization [facility] Address [address] [place] [address] Care Team Providers Care Vinyl Top Installer Name Role Phone Tulio Madrid MD Primary Care Provider [phone] Allergies Active AllergyReactionsCriticalityNoted RcdlEaagiatxRtgoenmnaPmbpr65/18/2023 Oxycodone-Ltnhtvmclletw64/18/2023 Medications MedicationSigDispense QuantityRefillsLast FilledStart DateEnd DateStatus atorvastatin (Lipitor) 20 mg tablet atorvastatin 20 mg tablet TAKE 1 TABLET BY MOUTH EVERYDAY AT LNKNKNC7204/25/2020Active colchicine 0.6 mg tablet Take 0.6 mg [...] 2 TABLETS BY MOUTH EVERY DAY AT FEVFXLH3007/11/2022ctive Active Problems ProblemNoted DateDiagnosed DateBenign prostatic hyperplasia with urinary yuwphtrpjpp59/18/2023History of colonic xwndot6607/31/2022Hydronephrosis with renal and ureteral calculus amuyxiauhzy73/18/2023Liver mass07/31/2022Long term current use of anticoagulant izbnudh2207/31/2022Neoplasm of uncertain behavior of liver and biliary ovuanbky04/18/7225Lnoghpks91/18/2974Zppqgl49/31/2022ack pain 12/11/2021iabetes adbwirji93/31/8868Nyje03/31/2022History of pulmonary embolism 12/11/2021 Assessment & Plan (07/31/2022 2:19 PM EST): Currently stable History of severe acute respiratory syndrome coronavirus 2 (SARS-CoV-2) disease 12/11/20219552Mczzjtdtkvhqbr70/31/2022 Assessment & Plan (07/31/2022 2:17 PM EST): Lipid abnormalities are currently well controlled with lipitor 20 mg- LDL currently 58.6 on labs 07/26/2022 Liver function 04/2022 were normal Hypertensive /31/2022 Assessment & Plan (07/31/2022 2:18 PM EST): Hypertension is well controlled 114/64 Continue lisinopril 5 mg Recent CR elevated 1.59- his cr typically has been 1.2-1.4 - He has been on antibiotics for Lt foot infection- DFU with wound care. Hbfdhol1512/11/2021bstructive sleep apnea lfxqupab58/31/2022 Family History Medical HistoryRelationNameCommentsStrokeFatherRelationNameStatusCommentsFather Social History Tobacco UseTypesPacks/DayYears UsedDateSmoking Tobacco: NeverSmokeless Tobacco: Never Tobacco Cessation:Counseling Given: Not Answered Alcohol UseStandard Drinks/WeekCommentsYes0 (1 standard drink = 0.6 oz pure alcohol)occasionalUT Safety & EnvironmentAnswerDate RecordedFear of Current or Ex-PartnerNot on file09/04/2023Emotionally AbusedNot on file09/04/2023hysically AbusedNot on file09/04/2023Sexually AbusedNot on file09/04/2023hysically or Sexually AbusedNot on file09/04/2023Sex and Gender InformationValueDate Recorded Sex Assigned at BirthNot on fileLegal WbaTagr9701/09/2022 9:30 PM EDTGender IdentityNot on fileSexual OrientationNot on file Last Filed Vital Signs Vital SignReadingTime TakenCommentsBlood Agqfujzb502/6401 1:39 PM EST Aekay413507/31/2022 1:39 PM ESTTemperature--Respiratory Rate--Oxygen Ycvawfrnjp16% 07/31/2022 1:39 PM ESTInhaled Oxygen Concentration--Bkopnl152 kg (308 lb) 07/31/2022 1:39 PM GRBBknjam807.4 cm (6' 1 )07/31/2022 1:39 PM ESTBody Mass Index40.64007/31/2022 1:39 PM EST Plan of Treatment Health MaintenanceDue DateLast DoneCommentsCT Zvtsjyzkfjrp08/09/1957Colonoscopy 1956Colorectal Cancer Lndnbjybv62/09/1957Diabetes: Hemoglobin A1C 1956FIT-DNA1956FIT1956FOBT1956Medicare Annual Wellness (AWV)1956 5821Obvbgobjkvpmg37/09/1957Diabetes: Retinopathy Sxavmhmes59/09/1967 Depression Kgmbwqyoz55/09/1969Diabetes: Urine Protein Tysehcyav71/09/1976Adult Pjmcbki2108/22/1978Zoster Vaccines (1 of 2)2006Fall Risk Gnagzryyl76/09/2022 Pneumococcal Vaccine: 50+ Years (2 of 2 [...] Date Tulio Madrid MD [address] [place] [address] PCP - [facility]07/05/24
--- OUTSIDE RECORDS SUMMARY | 2025-06-13 11:09 | XMS_ITS | Clinical Summary ---
Author Organization [facility] Address [address] [place] [address], [address] [place] [address] Care Team Providers Care Applications Chemist Name Role Phone Tulio Madrid MD Primary Care Provider + Social History Tobacco UseTypesPacks/DayYears UsedDateSmoking Tobacco: Never AssessedSex and Gender InformationValueDate RecordedSex Assigned at BirthNot on fileLegal Sex Male01/31/2025 12:58 PM EDTGender IdentityNot on fileSexual OrientationNot on file Plan of Treatment Health MaintenanceDue DateLast DoneCommentsDepression Dffnom6708/22/1968Hepatitis C cweqxb2508/22/1974DTaP/Tdap/Td vaccine (1 - Tdap)08/22/19754124Bandhf95/09/1997 Ssodkuzbsoe32/09/2002Colorectal Cancer Phpjdt8208/22/2001FIT/FOBT: Average risk 2001Fecal-DNA (Cologuard): Average risk2001Sigmoidoscopy/CT gmgijblzodsz66/09/2002Shingles vaccine (1 of 2)2006Pneumococcal 50+ years Vaccine [...] Date Tulio Madrid MD [address] [place] [address] PCP - GeneralFamaly Medicine01/31/25
--- OUTSIDE RECORDS SUMMARY | 2025-06-13 11:09 | XMS_ITS | Clinical Summary ---
Author Organization [facility] Address [facility] [place] [address] Care Team Providers Care Timekeeper Name Role Phone Unavailable Primary Care Provider Unavailabl e Social History Tobacco UseTypesPacks/DayYears UsedDateSmoking Tobacco: Never AssessedChildcare AnswerDate CdaldimuVfgbnqfitLuulfci44/11/2019EmploymentAnswerDate Recorded ZymtgzpbqlYrjcvsz54/11/2019Purpose - LifeAnswerDate RecordedPurpose and direction in attyRemqekl97/11/2021ex and Gender InformationValueDate Recorded Sex Assigned at BirthNot on fileLegal PmxLxkk1302/14/2015 9:00 PM EDTGender IdentityNot on fileSexual OrientationNot on file Plan of Treatment Health MaintenanceDue DateLast DoneCommentsDepression Slnxrbmgn86/09/1969Tobacco Qmsoakumg89/09/1969Adult BMI Ycztrlkzd33/09/1975DTaP,Tdap and Td Vaccines (1 - Tdap)1975Zoster (Shingles) Vaccine (1 of 2)2006Fall Risk Screening 2021Influenza Asjfltm9203/14/2025RSV ( or age 60+ yrs) (1 - 1-dose 75+ series)2031 Medical Devices Not on file
--- OUTSIDE RECORDS SUMMARY | 2025-06-13 11:09 | XMS_ITS | Patient Health Record ---
Author Organization [facility] Address [address] [place] [address] Care Team Providers Care Measurer Machine Name Role Phone Tulio Madrid Primary Care Provider Daniele Ruffin Unavailable [phone] Results Component Value Reference Range Notes MRI [...] Lab: Notes/Report: Primary Insurance Company: [employer] Surgeon/Assist:ANTHONY/VAHE ONESur[facility]: 08/[facility]/2024 @ 9 AMHosp arrival time day of:7:00 AMSurgery End Time:12:00Procedure: LEFT TOTAL KNEE ARTHROPLASTYSpecial Equipment:EDEN AND NEPHEW VISIONEERC-Arm: YESDiagnosis:OSTEOARTHRITIS OF LEFT KNEEAdmission Type:OPAnesthesia Type/CPNB: GENERAL/AQKKAItd31 HR OBSPost-op Appointment Date:08/23/24 @ 2 PMLatex AllergyNO [facility] Date/ Shock Absorption Floor Layer:ISMAEL Shell & Physical Appointment Date/:07/26/24Pre-op labs/Chest Order:CBC [...] XR KNEE LEFT (3 VIEWS) Performed at: [place] [id number] Reason For Referral Reason NO PRIOR AUTH REQUIR ED ANTHEM...NOT SCHED...PLEASE PRECERT LEFT KNEE MRI WITH ASIA PROTOCOL AT [facility] Diagnosis 1 Primary osteoarthrit is of left knee (M17.12) Diagnosis 2 Pain in left knee (M 25.562) Referral Organization [facility] Referring Provider First Name Daniele Referring Provider Last Name Anthony Referring Provider Speciality Orthopedic Surgery Referred Organization [facility] Radiology Dept . Referred Provider Daniele Valencia Referred Address [address] [place] [address], Referred Provider Specialty Orthopedic S urgery Procedure 1 MRI Joint Lower Ext w/o Dye (01641) General Notes Ismael Mariee 2023 10:22:15 AM >, Bell Avendano 06/23/2024 03:49:25 PM > PENDING WITH [facility]. FORM AND CLINICALS FAXED. FORM IN CHART.Juan Alberto Amber 06/25/2024 08:14:25 AM > NO PRIOR AUTH REQUIRED PER FAX FROM [facility]. REF IN CHART. PER AVAILITYWILFRID IS ACTIVE OF 07/14/2022. FAXED TO [facility].Kodi Tricia 06/28/2024 06:56:53 AM >ORDERS FAXED Referral Priority Routine Reason APPROVED ANTHEM... 08/09...PLEASE PRECERT LEFT TOTAL KNEE REPLACEMENT WITH EDEN AND NEPHEW AT [facility] Diagnosis 1 Primary osteoarthrit is of left knee (M17.12) Referral Organization [facility] Referring Provider First Name Daniele Referring Provider Last Name Anthony Referring Provider Speciality Orthopedic Surgery Referred Organization [facility] Referred Provider Daniele Valencia Referred Address [address] [place], [place],[address],[place] Referred Provider Specialty Orthopedic S urgery Procedure 1 Arthroplasty Knee To lcare Med/Lat Compartments (02347) General Notes Ismael Mariee 2024 09:43:18 AM >Juan Alberto Amber 07/23/2024 12:38:24 PM > AUTH IS PENDING WITH [facility]. FORM AND CLINICALS WERE FAXED. FORM IN CHART.Juan Alberto Amber 07/26/2024 02:03:05 PM > AUTH WAS APPROVED PER [facility]. APPROVED DATES ARE FROM 07/23/2024-09/20/2024. AUTH #[id number]. AUTH IN CHART. PER AVAILITYWILFRID IS ACTIVE OF 07/14/2022. FAXED TO [facility]. Referral Priority Routine Medications Medication SIG (Take, [...] in the past year?Monthly or less (1 point)Kbptiz0MaaxheatgedhffNkrwynst Tobacco Control (Standard) Question Answer Notes Tobacco use: Nonsmoker Problems Problem Type SNOMED Code ICD Code Onset Dates Problem Status W/U Status Risk Notes Problem History of musculosk eletal operation (141320385) Aftercare following joint replacement surgery (Z47.1) ActiveconfirmedProblemPain of right knee region (finding) (451337713546455)Pain in right knee (M25.561)ActiveconfirmedProblemOsteoarthritis of knee (378743377) Primary osteoarthritis of left knee (M17.12)ActiveconfirmedProblemPain of left knee joint (finding) (247082874674069)Pain in left knee (M25.562)Activeconfirmed ProblemArtificial knee joint present (543227013274)Presence of left artificial knee joint (Z96.652)ActiveconfirmedProblemBilateral arthritis of knees (4723674800045506)Primary osteoarthritis of knees, bilateral (M17.0)Active confirmed Vital Signs Height 6'1 in 01/31/2025 Jwvnft656 lbs5BMI37.9901/31/2025 Encounters Encounter Location Date Provider [facility] [address] [facility] [place] [address] 06/21/2024 Daniele Valencia Pain in right knee M25.561 ; Pain in left knee M25.562 and Primary osteoarthritis of left knee M17.12 [facility] [address] [facility] [place] [address] 07/26/2024 Daniele Anthony Primary osteoarthrit is of left knee M17.12 [facility] [address] [place] [address] 08/23/2024 Danielejavier Valencia Primary osteoarthrit is of left knee M17.12 [facility] [address] [place] [address] 09/06/2024 Daniele Valencia Aftercare following joint replacement surgery Z47.1 and Presence of left artificial knee joint Z96.652 [facility] [address] [facility] [place] [address] 10/04/2024 Daniele Valencia Aftercare following joint replacement surgery Z47.1 and Presence of left artificial knee joint Z96.652 [facility] [address] [facility] [place] [address] [place] [address] 12/20/2024 Daniele Valencia Aftercare following joint replacement surgery Z47.1 and Presence of left artificial knee joint Z96.652 [facility] [address] [place] [address] 01/31/2025 Daniele Valencia Aftercare following joint replacement surgery Z47.1 and Presence of left artificial knee joint Z96.652 [place] [address] [place] [address] 08/23/2024 Daniele Valencia Primary osteoarthrit is of left knee M17.12 ; Presence of left artificial knee joint Z96.652 and Aftercare following joint replacement surgery Z47.1 [place] [address] [place] [address] 08/26/2024 Daniele Valencia Aftercare following joint replacement surgery Z47.1 [place] [address] [place] [address] 09/13/2024 Daniele Valencia Aftercare following joint replacement surgery Z47.1 Assessments Encounter Date Diagnosis (ICD Code) Assessment Notes Treatment Notes Treatment Clinical Notes Section Notes 06/21/2024 Pain in right knee (ICD-10 - M25 .561) Left knee kjgsicgtufzaao96/09/2024Pain in left knee (ICD-10 - M25.562)Left knee lpymttmulponhy03/13/2025Primary osteoarthritis of left knee (ICD-10 - M17.12) Left knee ryomahbektljwj25/10/2025Primary osteoarthritis of left knee (ICD-10 - M17.12)08/23/2024Primary osteoarthritis of left knee (ICD-10 - M17.12)08/23/2024 Presence of left artificial knee joint (ICD-10 - Z96.652)08/26/2024ftercare following joint replacement surgery (ICD-10 - Z47.1)09/06/2024ftercare following joint replacement surgery (ICD-10 - Z47.1)Status post left total knee ecvnpeitqkwe78/03/2025ftercare following joint replacement surgery (ICD-10 - Z47.1)10/04/2024ftercare following joint replacement surgery (ICD-10 - Z47.1) Status post left total knee glmbtkfgjegu64/09/2025Aftercare following joint replacement surgery (ICD-10 - Z47.1)Status post left total knee arthroplasty. 5Aftercare following joint replacement surgery (ICD-10 - Z47.1)Right knee OA01/31/2025Presence of left artificial knee joint (ICD-10 - Z96.652)Right knee OA12/20/2024Presence of left artificial knee joint (ICD-10 - Z96.652)Status post left total knee arthroplasty.10/04/2024Presence of left artificial knee joint (ICD-10 - Z96.652)Status post left total knee jafqjiiiunog69/24/2025 Presence of left artificial knee joint (ICD-10 - Z96.652)Status post left total knee ihpofbzeflca30/10/2025ftercare following joint replacement surgery (ICD-10 - Z47.1)06/21/2024rimary osteoarthritis of left knee (ICD-10 - M17.12)Left knee hddkpcnwiptojg03/09/2024OtherI discussion with the patient regarding his left knee pain. Does have severe osteoarthritis of the left knee. We discussed treatment options. Has exhausted conservative management no relief. Will proceed forward with left total knee arthroplasty. He understands risk and benefits of the procedure. No guarantees made. Will plan for left total knee arthroplasty with freddy eden and nephelsi. Willhave him received clearance from his PCP and repeat A1c.Left knee acfxrhgsqvsdnu23/13/2025OtherPatient is a 68-year-old male presenting today for his left knee osteoarthritis. He is exhausted con servative management. Do believe total knee arthroplasty can provide him with some benefit. Discussed risk and benefits of surgery in detail. No guarantees send and signed in the office today. Plan for left total knee arthroplasty.Left knee urdekilyaamnur85/24/2025OtherPatient overall doing very well today in regard to his left total knee arthroplasty. Mobilizing quite well. Range of motion he is fairly stiff but overall progressing appropriately. Continue DVT prophylaxis. Follow-up in 1 month for clinical exam no x-rays.Status post left total knee egwtgewypnbx39/24/2025OtherPatient doing well today 6 weeks postop. Range of motion improving. Continue with aggressive PT. Hemay start to drive. Will see him back in the office in 6 weeks with x-raysStatus post left total knee eehbrwrcddqa94/09/2025OtherPatient doing quite well today in regards to [...] and call our office for when he w ants to schedule.Right knee OA Plan Of Treatment Pending Test Test Name Order Date Knee, left 3v AP, Lat, [place] - 73955 0 01/31/2025 PT - Evaluate and Treat, as directed, 2 - 3 times a week x 4 - 6 weeks 07/26/2024 XR Foreign Body Loc Eye Bilateral 2024 XR Knee 1 or 2 Views Left 07/23/2024 XR Knee Standing AP Bilateral 07/26/2024 XR Knee Standing AP Bilateral 07/26/2024 SCC- KNEE 4 VIEW LEFT-85592 06/21/2024 XR KNEE LEFT (3 VIEWS) 01/31/2025 SCC- KNEE 4 VIEW RIGHT 75480 06/21/2024 SCC- KNEE 2 VIEW LEFT - 40035 09/06/2024 SCC- KNEE 2 VIEW LEFT - 23320 10/04/2024 SCC- KNEE 2 VIEW LEFT - 90517 12/20/2024 MRI Knee Surg.Navigate or Plan ONLY Left 07/23/2024 Hip to ankle Lt -92887 visioneer 024 MRI : Knee, Left. [employer] shanita including long leg films 91792 06/21/2024 Insurance Providers Payer Name Payer Address Payer Phone Subscriber Number Group Number Insured Name Patient Relationship to Insured Coverage Start Date Coverage End Date Wilfrid [address] [place] [address] [id number] ILA LOCKE Spouse - patient is the spouse of the insured 5 Medications Administered Medication Instructions Date of Administration Dosage Notes BUPIVACAINE mLDepo-Blnysq87 aUlbtyxkzim74/26/20244 mL
--- OUTSIDE RECORDS SUMMARY | 2025-06-13 11:10 | XMS_ITS | Clinical Summary ---
Author Organization [facility] Healthcare Address [address] [place] [address] Care Team Providers Care Manager Ethics Name Role Phone Tulio Madrid MD Primary Care Provider [phone] Allergies Active AllergyReactionsCriticalityNoted VcqfQrlnosoyWgrjoohti40/18/2023 Other Reaction(s): Hyperactive behavior, Other Oxycodone-AcetaminophenItching,TncbNxg4007/31/2022 Medications MedicationSigDispense QuantityRefillsLast FilledStart DateEnd DateStatus allopurinol [...] without long-term current use of insulin ([facility])TAKE 1 TABLET BY MOUTH EVERY DAY 90 [...] without long-term current use of insulin ([facility])INJECT 2 MG SUBCUTANEOUSLY WEEKLY 9 mL 5Active febuxostat (Uloric) 40 MG tablet Indications:Type 2 diabetes mellitus with hyperglycemia, without long-term current use of insulin (HCC),Morbid obesity (CMS-HCC),Polyneuropathy due to type 2 diabetes mellitus ([facility])Take 1 tablet (40 mg) by mouth Daily [...] Indications:Polyneuropathy due to type 2 diabetes mellitus ([facility])TAKE 1 CAPSULE BY MOUTH IN THE MORNING, EVENING AND BEFORE BEDTIME 270 capsule 5Active Active Problems ProblemNoted DateDiagnosed DateEncounter for long-term current use of medication 08/05/2024Screening PSA (prostate specific antigen)08/05/2024Encounter for preoperative juoyaicpfk62/02/2025 Assessment & Plan (07/15/2024 9:48 AM EST): Able to proceed with upcoming surgery at low risk for complications. History of DM but controlled with medication. No CAD or HTN. Not having chest pain or palpitations. Recommend routine PAT. Seasonal allergic rhinitis due to elfxon2101/12/2024 Assessment & Plan (01/12/2025 9:44 AM EDT): Symptoms controlled with medication and continue. Assessment & Plan (01/12/2024 9:44 AM EDT): Symptoms controlled with medication and continue. Primary judvbvbb84/01/2024 Assessment & Plan (01/12/2025 9:43 AM EDT): Sleeping well with medication and continue. Assessment & Plan (01/12/2024 9:44 AM EDT): Not sleeping well but wants to continue melatonin. If worsens can try trazodone. Polyneuropathy due to type 2 diabetes atgvtavj25/10/2024 Assessment & Plan (07/15/2024 9:49 AM EST): Neuropathy stable and continue neurontin. Assessment & Plan (01/12/2024 9:44 AM EDT): Neuropathy stable and continue neurontin. Primary osteoarthritis of knees, sfgiktxje92/10/2024nnual physical exam 07/23/2023 Assessment & Plan (07/15/2024 [...] daily Aspirin therapy. DDD (degenerative disc disease), qobljg3206/26/2023 Assessment & Plan (01/12/2025 9:43 AM EDT): Pain stable and follow with pain management. Assessment & Plan (01/12/2024 9:44 AM EDT): Pain stable and follow with pain management. Jbhvgleyutow75/14/2023 Assessment & Plan (07/15/2024 9:51 AM EST): Due for labs. Arthritis, gouty108/27/2022 Assessment & Plan (01/12/2025 9:43 AM EDT): No flares and continue allopurinol. Assessment & Plan (01/12/2024 9:43 AM EDT): No flares and continue allopurinol. Male ufmnafivzjmg30/14/2023NAFL (nonalcoholic fatty liver)06/26/2023lass 2 severe obesity due [...] with hyperglycemia, without long-term current use of ddqsplf5506/26/2023 Assessment & Plan (01/12/2025 9:44 AM EDT): [...] Stick to ADA diet and limit carbs. Sxaotgfmostb67/03/2023ge-related nuclear cataract of both eyes03/10/2023 Resolved Problems [...] RecordedSex Assigned at BirthNot on file Legal UweXzos3509/25/2022 7:24 PM EDTGender IdentityNot on fileSexual Orientation Not on file Last Filed Vital Signs Vital SignReadingTime TakenCommentsBlood Xyhakqed653/8401/12/2025 8:53 AM EDT Rmrtx245601/12/2025 8:53 AM OZZFcewhtjvegv77.2 ??C (97.1 ??F)01/12/2025 8:53 AM EDTRespiratory Evwp976601/12/2025 8:53 AM EDTOxygen Vhbjyjlhje66%01/12/2025 8:53 AM EDTInhaled Oxygen Concentration--Yjvrsf506 kg (293 lb)01/12/2025 8:53 AM EDT Pyxpnk077 cm (6' 2 )01/12/2025 8:53 AM EDTBody Mass Index37.62001/12/2025 8:53 AM EDT Plan of Treatment Health MaintenanceDue DateLast DoneCommentsCT Huimgqupzdry23/09/1957FIT-DNA 1956FIT1956FOBT1956 0550Qkawdmvjayzro54/09/1957Pneumococcal Vaccine: 65+ Years (2 of 2 - PCV)OVID-19 Vaccine (2024- season)/, 04/20/2023, 04/20/2023, Additional history existsInfluenza Vaccine (#1)/01/2024, 04/12/2023, 04/17/2022, Additional history yvwujgDhwyqofsoxy41/02/202701/08/2016Colorectal Cancer Tmxvdfrii77/02/2027 Insurance Care Teams Team MemberRelationshipSpecialtyStart DateEnd Date Tulio Madrid MD PCP - GeneralFamily Medicine01/12/24
--- NOTE | 2025-06-13 12:33 | PM.CN ---
Consult Note: HPI Data of Consult Patient: known to practice within the last 3 years Consult date: 06/13/25 Requesting Physician: Donaldo Sparrow MD Primary Care Provider: Tulio Madrid MD Consult Narrative Reason for consult: low back, bilateral lower extremity pain Narrative: 69yom who presents for assessment. notes persistence of low back pain, lower extremity pain, worsened with walking, relieved with sitting. recent lumbar mri reviewed, shows multilevel disc bulging with stenosis from L3-S1. has continued in a series of provider directed home exercises >6 weeks, without lasting benefit. uses otc meds as needed, as well as gabapentin and flexeril. denies adverse med side effects. cc:: CC: Donaldo Sparrow MD Review of Systems ROS Status of ROS 10 or more systems reviewed and unremarkable except as noted in history and below [facility] Medical History Insomnia ?G47.00 - Insomnia, unspecified (ICD-10) Seasonal allergic rhinitis ?J30.2 - Other seasonal allergic rhinitis (ICD-10) Polyneuropathy due to type 2 diabetes mellitus ?E11.42 - Type 2 diabetes mellitus with diabetic polyneuropathy (ICD-10) Nonalcoholic fatty liver ?K76.0 - Fatty (change of) liver, not elsewhere classified (ICD-10) Hypogonadism Degenerative disc disease, lumbar ?M51.369 - Other intervertebral disc degeneration, lumbar region without mention of lumbar back pain or lower extremity pain (ICD-10) Pseudophakia ?Z96.1 - Presence of intraocular lens (ICD-10) Cataract ?H26.9 - Unspecified cataract (ICD-10) Lumbar spondylosis ?M47.816 - Spondylosis without myelopathy or radiculopathy, lumbar region (ICD-10) Diabetes mellitus ?E11.9 - Type 2 diabetes mellitus without complications (ICD-10) Knee pain ?M25.569 - Pain in unspecified knee (ICD-10) Back pain ?M54.9 - Dorsalgia, unspecified (ICD-10) Hypertension ?I10 - Essential (primary) hypertension (ICD-10) Gout ?M10.9 - Gout, unspecified (ICD-10) Sleep apnea ?G47.30 - Sleep apnea, unspecified (ICD-10) Hyperlipidemia ?E78.5 - Hyperlipidemia, unspecified (ICD-10) Myofascial pain ?M79.18 - Myalgia, other site (ICD-10) Lumbar stenosis with neurogenic claudication ?M48.062 - Spinal stenosis, lumbar region with neurogenic claudication (ICD-10) Bilateral primary osteoarthritis of knee ?M17.0 - Bilateral primary osteoarthritis of knee (ICD-10) Pulmonary embolism (07/2020) ?I26.99 - Other pulmonary embolism without acute cor pulmonale (ICD-10) COVID-19 (07/2020) ?U07.1 - COVID-19 (ICD-10) Kidney stones ?N20.0 - Calculus of kidney (ICD-10) Knee osteoarthritis ?M17.9 - Osteoarthritis of knee, unspecified (ICD-10) Fusion, toes ?Q70.20 - Fused toes, unspecified foot (ICD-10) Surgical History H/O sinus surgery ?Z98.890 - Other specified postprocedural states (ICD-10) History of vasectomy ?Z98.52 - Vasectomy status (ICD-10) S/P cataract extraction and insertion of intraocular lens ?Z98.49 - Cataract extraction status, unspecified eye (ICD-10) ?Z96.1 - Presence of intraocular lens (ICD-10) History of radiofrequency ablation (RFA) of nerve of lumbar spine ?Z98.890 - Other specified postprocedural states (ICD-10) S/P epidural steroid injection ?Z92.241 - Personal history of systemic steroid therapy (ICD-10) History of foot surgery ?Z98.890 - Other specified postprocedural states (ICD-10) History of tonsillectomy and adenoidectomy ?Z90.89 - Acquired absence of other organs (ICD-10) S/P right knee arthroscopy ?Z98.890 - Other specified postprocedural states (ICD-10) S/P left knee arthroscopy ?Z98.890 - Other specified postprocedural states (ICD-10) Family History Other Family history of diabetes mellitus Family history of hypertension Family history of prostate cancer Family history of stroke Social History Within the past year, how often did you have a drink containing alcohol: monthly or less Smoking status: Never smoker Non-prescribed substance use: denies use Previous occupational history: RETIRED Highest level of school completed/degree received: high school graduate Meds Home Medications and Allergies Home Medications ?Medication ?Instructions ?Recorded ?Confirmed ?Type acetaminophen 500 mg tablet 1,000 mg PO Q6H PRN pain 01/06/23 05/18/25 History (Acetaminophen Extra Strength) ascorbic acid (vitamin C) 500 mg 500 mg PO BID 01/06/23 05/18/25 History tablet (C-500) cholecalciferol (vitamin D3) 25 1,000 unit PO BID 01/06/23 05/18/25 History mcg (1,000 unit) tablet (Vitamin D3) colchicine 0.6 mg tablet 0.6 mg PO TID 01/06/23 05/18/25 History febuxostat 40 mg tablet 40 mg PO DAILY 01/06/23 05/18/25 History lisinopril 5 mg tablet 5 mg PO DAILY 01/06/23 05/18/25 History metformin 500 mg tablet,extended 500 mg PO DAILY 01/06/23 05/18/25 History release 24 hr allopurinol 300 mg tablet 300 mg PO DAILY 07/20/24 05/18/25 History semaglutide 2 mg/dose (8 mg/3 mL) 2 mg subcut QWEEK 07/20/24 05/18/25 History subcutaneous pen injector (Ozempic) testosterone cypionate 200 mg/mL 200 mg IM Q14D 07/20/24 05/18/25 History intramuscular oil trazodone 50 mg tablet 50 mg PO .QHS 08/23/24 05/18/25 History diclofenac sodium 50 mg 50 mg PO BID #60 tabs 11/25/24 05/18/25 Rx tablet,delayed release gabapentin 600 mg tablet 600 mg PO TID #90 tabs 05/04/25 05/18/25 Rx tramadol 50 mg tablet 50 mg PO BID PRN pain #60 tabs 05/04/25 05/18/25 Rx cyclobenzaprine 10 mg tablet 10 mg PO HS 05/18/25 05/18/25 History tramadol 50 mg tablet 50 mg PO BID PRN pain #60 tabs 06/03/25 Rx gabapentin 600 mg tablet 600 mg PO TID #90 tabs 06/07/25 Rx Allergies Allergy/AdvReac Type Severity Reaction Status Date / Time oxycodone AdvReac hyperactivi Verified 05/16/25 08:52 ty Exam Narrative Exam Narrative: Psych-alert and oriented x 3. Attentive and appropriate, constitutionally normal, displays normal mood and affect per situation. There are no obvious deficits in memory, reasoning, or intellect.? Skin-no obvious rashes, bruising, erythema noted to the patient's area of pain.? Extremities- extremities are warm with minimal edema and palpable pulses. Lumbar-tenderness to palpation noted in the lumbar spine and paraspinal musculature. Pain is elicited with flexion, extension, and lateral rotation of the lumbar spine. Range of motion is diminished with these motions. Facet loading maneuvers are positive.? Strength-noted to be unremarkable. Sensory-no notable sensory deficits in the bilateral lower extremities to touch or pinprick in all dermatomal distributions with the exception to decreased sensation to the bilateral L4, 5 dermatomal distribution Coordination remains intact.? Gait remains non-antalgic. Assessment and Plan Assessment and Plan (1) Lumbar stenosis with neurogenic claudication: Plan 69yom who presents for assessment. failed conservative measures, as noted. imaging reviewed, as noted. given symptoms and imaging, prudent to attempt bilateral l4-5 tfesi under fluoroscopic guidance. he is in agreement. meds reviewed, no changes. follow up after procedure.
== END 2025-06-13 11:07 | disposition home or self-care (01) ==
PROVIDERS: PCP Family Medicine; Visit Provider Anesthesiology
DX: M48.062 Spinal stenosis, lumbar region with neurogenic claudication (principal)
CPT/HCPCS: G0463

== ENCOUNTER 2025-06-20 06:28 | Day surgery (SDC) | payer MEDICARE, OTHER, SELFPAY ==
--- OUTSIDE RECORDS SUMMARY | 2024-07-27 04:00 | XMS_ITS ---
Author Organization [facility] in [place] Address [address] [place] [address] Care Team Providers Care Power Wood Sawyer Name Role Phone None, Unknown or Primary Care Provider Unavailab marylou NealevanJames [phone] REASON FOR VISIT -6 Month Follow Up- Encounters Encounter Location Date Provider Diagnosis [facility] (PODIATRY) [address] [place] [address] [place] [address] 07/27/2024 James Raya Left foot pain M79.672 Assessments Encounter Date Diagnosis (ICD Code) Assessment Notes Treatment Notes Treatment Clinical Notes Section Notes 07/27/2024 Left foot pain (ICD-10 - M79.672 ) Plan Of Treatment Pending Test Test Name Order Date XR Foot LT (3 views) * 07/27/2024 Progress Notes * Warner LOCKE CDOB: [birth year] (69 yo M)Acc No.[id number]:07/27/2024 UNLOCKED PROGRESS NOTE Follow Up Patient: Etelvina BOND Warner Farrar :?James Raya DPVirgilio, MSDOB:1955???Age: 68 Y???Sex:MaleDate:07/27/2024Phone:[phone]:JARETH DUNCAN [id number]:Unknown or None Subjective: * Chief Complaints: * 1 . -6 Month Follow Up-. * Medical History: Objective: * Vitals: Assessment: * Assessment: 1.?Left foot pain - M79.672??? Plan: * Treatment: ?Imaging: XR Foot LT (3 views) * * * Electronic signature of James Raya DPM on 06/20/2025 at 06:33 AM ESTSign off status: PendingVisit Status:?CANC (Cancelled) * Provider: Supriya Raya DPM, MS Date: 0 07/27/2024 Generated for Printing/Faxing/eTransmitting on:?06/20/2025 06:33 AM EST
--- OUTSIDE RECORDS SUMMARY | 2024-08-23 09:00 | XMS_ITS ---
Author Organization [facility] Address [address] [place] [address] Care Team Providers Care Net Programmer Analyst Name Role Phone Tulio Madrid Primary Care Provider Julissa chris Daniele Valencia Unavailable [phone] REASON FOR VISIT 1ST POST OP LEFT TKA 08/09 Problems Problem Type SNOMED Code ICD Code Onset Dates Problem Status W/U Status Risk Notes Problem History of musculosk eletal operation (475265879) Aftercare following joint replacement surgery (Z47.1) ActiveconfirmedProblemArtificial knee joint present (625991204975)Presence of left artificial knee joint (Z96.652)Activeconfirmed Encounters Encounter Location Date Provider Diagnosis [facility] Office [address] [place] [address] [place] [address] 08/23/2024 Daniele Valencia Aftercare following joint replacement [...] Date SCC- KNEE 2 VIEW LEFT - 48650 08/23/2024 Progress Notes * CARLOS LOCKE CDOB: [birth year] (69 yo M)Acc No.[id number]:08/23/2024 Progress Notes Patient: Etelvina BONDCARLOS :?Daniele Valencia, DODOB:1955???Age:69 Y ???Sex:MaleDate:08/23/2024Phone:[phone]:[address], [id number]:Tulio Madrid Subjective: * Chief Complaints: * 1 . 1ST POST OP LEFT TKA 08/09. * Medical History: Objective: * Vitals: Assessment: * Assessment: 1.?Aftercare following joint replacement surgery - Z47.1 (Primary)???2.?Presence of left artificial knee joint - Z96.652??? Plan: * Treatment: ?Imaging: SCC- KNEE 2 VIEW LEFT - 188867.?Presence of left artificial knee joint?Imaging: SCC- KNEE 2 VIEW LEFT - 26001 Forms: * Images: * Electronic signature of Daniele Valencia DO on 06/20/2025 at 06:33 AM ESTSign off status: Pending * Provider: Noa Valencia DO Date: 0 08/23/2024 Generated for Printing/Faxing/eTransmitting on:?06/20/2025 06:33 AM EST
--- OUTSIDE RECORDS SUMMARY | 2024-11-22 08:10 | XMS_ITS ---
Author Organization [facility] Address [address] [place] [address] Care Team Providers Care Automatic Head Sawyer Name Role Phone Tulio Madrid Primary Care Provider Daniele Ruffin Unavailable [phone] REASON FOR VISIT LEFT KNEE RECHECK DOS 02.10 Encounters Encounter Location Date Provider Diagnosis [facility] Office [address] [place] [address] [place] [address] 11/22/2024 Daniele Valencia Aftercare following joint replacement surgery Z47.1 Assessments Encounter Date Diagnosis (ICD Code) Assessment Notes Treatment Notes Treatment Clinical Notes Section Notes 11/22/2024 Aftercare following joint replac ement surgery (ICD-10 - Z47.1) Plan Of Treatment Pending Test Test Name Order Date SCC- KNEE 2 VIEW LEFT - 49762 11/22/2024 Progress Notes * CARLOS LOCKE CDOB: [birth year] (69 yo M)Acc No.[id number]:11/22/2024 Patient:?CARLOS LOCKE :?Daniele Valencia, DODOB:1955???Age:69 Y ???Sex:MaleDate:11/22/2024Phone:[phone]:JARETH DUNCAN [id number]:Tulio Madrid Subjective: * Chief Complaints: * 1 . LEFT KNEE RECHECK DOS 02.10. * Medical History: Objective: * Vitals: Assessment: * Assessment: 1.?Aftercare following joint replacement surgery - Z47.1 (Primary)??? Plan: * Treatment: ?Imaging: SCC- KNEE 2 VIEW LEFT - 15454 * Procedure Codes: 7 3560 X-ray Knee, 2 view Forms: * Images: * Electronic signature of Daniele Valencia DO on 06/20/2025 at 06:33 AM ESTSign off status: Pending * Provider: Noa Valencia DO Date: 0 11/22/2024 Generated for Printing/Faxing/eTransmitting on:?06/20/2025 06:33 AM EST
--- OUTSIDE RECORDS SUMMARY | 2025-06-20 06:31 | XMS_ITS | CCD ---
Author Organization [facility] Care Team Providers Care Otter Trawler Boatswain Name Role Phone Dominikjamaal Racheal Unavailable Ant [...] Primary Care Unavailable BOONE ., DR NATHALY Mian Consulting Unavailable BOONE [...] NATHALY Main Attending Unavailable BOONE ., DR NTAHALY Main Admitting Unavailable BERRIOS ., DR FELISA [...] Unavailable PAY ., DR MARTINEZ Admitting Unavailable BERROIS ., DR FELISA Juarez Primary Care Unavailable [...] DR FELISA Juarez Primary Care Unavailable [facility], DR STEWART Attending Unavailable [facility], DR STEWART Admitting Unavailable [facility], DR STEWART Consulting Unavailable [facility], DR RACHEAL Ayala Admitting Unavailable [facility], DR RACHEAL Ayala Consulting Unavailable WE[facility], DR RACHEAL Ayala Attending Unavailable BERRIOS ., DR FELISA Juarez Primary Care Unavailable [facility], DR ELIN Oliva Consulting Unavailable BERRIOS [...] Unavailable Tulio Ruggiero MD Primary Care Provider [phone] Daniele Valencia DO Attending UnavailDaniele Tsai DO Attending UnavailTULIO Etienne Attending Unavailable MONIK, TULIO Attending Unavailable MONIK, TULIO Attending Unavailable Tulio Ruggiero MD Primary Care Provider DANIELE VALENCIA Referring Unavailable TULIO RUGGIERO Primary Care UnavailVika Siddiqi Attending Unavailable LIZ ABREU Attending Unavailable Tulio Ruggiero MD Unavailable Tulio Ruggiero MD Primary Care Provider [phone] Tulio Ruggiero MD Primary Care Provider Tulio Ruggiero MD Primary Care Provider [phone] Allergies Allergy ClassificationReported Allergen(s)Allergy TypeDate of OnsetReaction(s) Facility (3 sources)Acetaminophen / oxyCODONEDrug AllergyUnknowSac-[facility] Other (20 sources)Acetaminophen / oxyCODONE; Translations: [OXYCODONE-ACETAMINOPHEN] Drug Tmlbczq16-19-7662Ccbcjwu, [facility]Un[facility] ([facility] sources)oxyCODONE; Translations: [OXYCODONE]Drug Fpacgxj62-26-6665 Hyperactive behavior (finding)[facility] Repository (1 source)Acetaminophen / oxyCODONEDrug [facility]ergyThe [facility] (1 source)oxyCODONE; Translations: [OxyCODONE Hydrochloride][facility] Medications Current Medications MedicationDrug Class(es)DatesSig (Normalized)Sig (Original)allopurinol 300 mg oral tablet (20 sources)Xanthine Oxidase Inhibitorallopurinol (Zyloprim) 300 MG tablet 1 (one) time each day at the same time. Activeatorvastatin 20 mg oral tablet (20 sources)HMG-CoA Reductase InhibitorStart: 76-97-4037ngsp 1 tablet by mouth at bedtimeatorvastatin (Lipitor) 20 MG tablet Indications: Dyslipidemia Take 1 tablet (20 mg) by mouth at bedtime 90 tablet 3 09/30/2023 ActiveAtorvastatin Calcium Activebaclofen 10 mg oral tablet (20 sources)gamma-Aminobutyric Acid-ergic AgonistStart: 49-63-7977cstx 1 tablet by mouth at bedtimebaclofen 10 mg Tab 10 mg = 1 tab(s), Oral, Bedtime, Refills(s) 0, Muscle pain Start Date: 11/17/20 Status: Orderedtake 1 tablet by mouth at bedtimebaclofen (Lioresal) 20 MG tablet Take 1 tablet by mouth at bedtime. 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) , Type 2 diabetes mellitus with hyperglycemia, without long-term current use of insulin (CMS/HCC) TAKE 1 TABLET BY MOUTH THREE TIMES A DAY NEEDED FOR GOUT 60 tablet 3 08/06/2023 ActiveColchicine Activecyclobenzaprine hydrochloride 10 mg oral tablet (2 sources)Muscle RelaxantStart: 66-20-1656rcpdrewonyccsgj 10 mg Tab Refills(s) 0 Start Date: 11/04/23 Status: OrdereddiazePAM 10 mg oral tablet (20 sources)BenzodiazepinediazePAM (Valium) 10 MG tablet Take by mouth every 8 (eight) hours if needed Activediclofenac sodium 50 mg delayed release oral tablet (20 sources)Nonsteroidal Anti-inflammatory DrugStart: 86-09-2370loyoalvqog sodium 50 mg Oral EC Tab Refills(s) 0 Start Date: 11/04/23 Status: Ordered febuxostat 40 mg oral tablet (20 sources)Xanthine Oxidase InhibitorStart: 46-26-3271pggijlsooe (Uloric) 40 MG tablet Indications: Type 2 diabetes mellitus with hyperglycemia, without long- term current use of insulin (HCC) , Morbid obesity (CMS-HCC) , 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) Take 1 tablet (40 mg) by mouth Daily 90 tablet 3 11/03/2024 ActiveStart: 04-25-2020 End: 88-23-7013hypvggwpot (Uloric) 40 MG tablet Indications: Morbid obesity (CMS/HCC) , Polyneuropathy due to type2 diabetes mellitus (CMS/HCC) , Type 2 diabetes mellitus with hyperglycemia, without long-term current use of insulin (CMS/HCC) TAKE 1 TABLET BY MOUTH EVERY DAY 90 tablet 3 08/09/2024 Active Febuxostat Activegabapentin 300 mg oral capsule (20 sources)Anti-epileptic AgentStart: 60-05-3852prlb 1 capsule by mouth at bedtimegabapentin (Neurontin) 300 MG capsule Indications: 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) TAKE 1 CAPSULE BY MOUTH IN THE MORNING, EVENING AND BEFORE BEDTIME 270 capsule 03/07/2025 ActiveStart: 11-15-2020 End: 08-75-5681xpef 1 capsule by mouth in the morning, [...] oral tablet (20 sources)Angiotensin Converting Enzyme InhibitorStart: 26-66-4244tqdsrfuchz 5 MG tablet Indications: Morbid obesity (CMS-HCC) , 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) , Type 2 diabetes mellitus with hyperglycemia, without long-term current use of insulin (HCC) TAKE 1 TABLET BY MOUTH EVERY DAY 90 tablet 3 06/07/2024 ActiveStart: 17-39-9256ctgjuewxis 5 MG tablet Indications: Morbid obesity (CMS/HCC) , 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) , Type 2 diabetes mellitus with hyperglycemia, without long-term current use ofinsulin (CMS/HCC) TAKE 1 TABLET BY MOUTH EVERY DAY 90 tablet 3 08/06/2023 ActiveLisinopril Bjihpm82 hr metFORMIN hydrochloride 500 mg extended release oral tablet (20 sources)BiguanideStart: 68-50-3616cejICSVAV XR (Glucophage-XR) 500 MG 24 hr tablet Indications: Morbid obesity (CMS-HCC) , 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) , Type 2 diabetes mellitus with hyperglycemia, without long-term current use of insulin (HCC) TAKE 1 TABLET BY MOUTH EVERY DAY IN THE MORNING 90 tablet 3 06/07/2024 ActiveStart: 81-68-4040ynrZXPRXX XR (Glucophage- XR) 500 MG 24 hr [...] mg oral tablet (1 source)Nonsteroidal Anti-inflammatory DrugStart: 29-25-8668viqc 1 tablet by mouth twice dailynabumetone 500 mg Tab 500 mg = 1 tab(s), Oral, BID, Refills(s) 0, Arthritis Start Date: 11/17/20 Status: OrderedOzempic (3 sources)Ozempic Activeprobenecid 500 mg oral tablet (20 sources)Start: 77-31-9366cyjs 1 tablet by mouth onceprobenecid (Benemid) 500 MG tablet Indications: Arthritis, gouty Take 1 tablet (500 mg) by mouth every 12 (twelve) hours 60 tablet 3 07/15/2024 Active End: 23-85-1586lgwhghiqhs (Benemid) 500 MG tablet every 12 (twelve) hours. 07/15/2024 Discontinued (Reorder)take 1 tablet by mouth every twelve hours Probenecid 500 MG 1 tablet Orally Twice a day Active0.25 mg, 0.5 mg dose 1.5 ml semaglutide 1.34 mg/ml pen injector (3 sources)Start: 76-14-7949oytjpk 0.5 mg by subcutaneous injection every week Ozempic 2 mg/1.5 mL (0.25 mg or 0.5 mg dose) subcutaneous solution 0.5 mg, SubCutaneous, qWeek, Refill(s) 0 Start Date: 04/24/21 Status: Ordered Semaglutide, 2 MG/DOSE, (Ozempic, 2 MG/DOSE,) 8 MG/3ML solution pen-injector (20 sources)Start: 54-52-8338zbipvj 2 mg by subcutaneous injection every week Semaglutide, 2 MG/DOSE, (Ozempic, 2 MG/DOSE,) 8 MG/3ML solution pen-injector Indications: Type 2 diabetes mellitus with hyperglycemia, without long-term current use of insulin (HCC) INJECT 2 MG SUBCUTANEOUSLY WEEKLY 9 mL 3 10/20/2024 ActiveStart: 58-48-4827ifqsai 2 mg by subcutaneous injection every week Semaglutide, 2 MG/DOSE, (Ozempic, 2 MG/DOSE,) 8 MG/3ML solution pen-injector Indications: Type 2 diabetes mellitus with hyperglycemia, without long-term current use of insulin ([facility]/HCC) INJECT 2 MG SUBCUTANEOUSLY WEEKLY 9 mL 3 10/20/2024 ActiveStart: 02-91-6675mklifq 2 mg by subcutaneous injection every weekSemaglutide, 2 MG/DOSE, (Ozempic, 2 MG/DOSE,) 8 MG/3ML solution pen-injector Indications: Type 2 diabetes mellitus with hyperglycemia, without long-term current use of insulin ([facility]) Inject 2 mg under the skin 1 (one) time per week 9 mL 3 08/26/2023 Activesulfamethoxazole 800 mg / trimethoprim 160 mg oral tablet (3 sources)Dihydrofolate Reductase Inhibitor Antibacterial, Sulfonamide AntimicrobialStart: 10-13-2024 End: 97-82-3730ktdw 1 tablet by mouth once in the morningsulfamethoxazole- trimethoprim (Bactrim DS) 800-160 MG per tablet Indications: Abscess of abdominal wall Take 1 tablet by mouth in the morning and at noon for 10 days 20 tablet 10/13/2024 10/23/2024 ActiveSyringe/Needle, Disp, (B-D 3CC LUER-HERIMNIO SYR 23GX1 ) 23G X 1 3 ML misc (20 sources)Start: 45-10-0244Zxuemgz/Needle, Disp, (B-D 3CC LUER-HERMINIO SYR 23GX1 ) 23G X 1 3 ML misc Indications: Male hypogonadism Inject 1 each into the shoulder, thigh, or buttocks every 14 (fourteen) days 50 each 11 10/04/2024 ActiveStart: 57-20-1163Tqftnbq/Needle, Disp, (B-D 3CC LUER-HERMINIO SYR 23GX1 ) 23G X 1 3 ML misc Indications: Male hypogonadism Inject 1 each into the shoulder, thigh, or buttocks every 14 (fourteen) days 50 each 11 12/24/2023 Active tadalafil 10 mg oral tablet (1 source)Phosphodiesterase 5 InhibitorStart: 33-23-1978nqruoemvq 10 mg Tab See Instructions, PRN for erectile dysfunction, 1-2 tab(s) po 60mins prior to sexual activity. do not exceed 20mg/24hrs, # 20 tab(s), Refills(s) 3, Pharmacy: [facility]/pharmacy #[id number], 188, cm, 06/03/23 10:01:00 EST, Height/Length Dosing, 138, kg, 06/03/23 10:01:00 EST, Weight Dosing Start Date: 06/03/23 Status: Ordered1 ml testosterone cypionate 200 mg/ml injection (20 sources)AndrogenStart: 12-24-2023 End: 43-73-4118svxzjuqocdrk cypionate (Depo-Testosterone) 200 MG/ML injection Indications: Male hypogonadism Inject 0.5 mL (100 mg) into the shoulder, thigh, or buttocks every 14 (fourteen) days 10 mL 2 11/09/2024 ActiveTestosterone Cypionate 200 mg/mL intramuscular solution (3 sources)Start: 04-92-9898Dsqyrdytenwu Cypionate 200 mg/mL intramuscular solution Refills(s) 0 Start Date: 06/03/23 Status: OrderedtiZANidine 4 mg oral tablet (20 sources)Central alpha-2 Adrenergic Agonisttake 1 tablet by mouth every six hours as neededtiZANidine (Zanaflex) 4 MG tablet Take 4 mg by mouth every 6 (six) hours if needed for muscle spasms ActivetraMADol hydrochloride 50 mg oral tablet (20 sources)Opioid AgonistStart: 42-24-7373rmeSKQYW 50 mg Tab Refills(s) 0 Start Date: 06/03/23 Status: OrderedtraMADol HCl ActivetraZODone hydrochloride 50 mg oral tablet (20 sources)Serotonin Reuptake InhibitorStart: 44-14-0051mgzk 1 tablet by mouth at bedtimetraZODone (Desyrel) 50 MG tablet Indications: Primary insomnia Take 1 tablet (50 mg) by mouth at bedtime 30 tablet 3 12/27/2024 ActiveStart: 18-41-5445dgsi 1 tablet by mouth at bedtimetraZODone (Desyrel) 50 MG tablet Indications: Primary insomnia TAKE 1 TABLET BY MOUTH AT BEDTIME 30tablet 3 06/24/2024 ActiveStart: 78-32-7192jocl 50 mg by mouth once daily at bedtime trazodone 50 mg, Oral, Once a day (at bedtime), Refills(s) 0 Start Date: 05/27/24 Status: OrderedStart: 30-07-9161jsov 1 tablet by mouth at bedtime traZODone (Desyrel) 50 MG tablet Indications: Primary insomnia Take 1 tablet (50 mg) by mouth at bedtime 30 tablet 3 02/26/2024 ActiveVitamin D3 (3 sources)Start: 70-12-4178Tckyqyb D3 50,000 International_Unit, BID, Refills(s) 0, Prophylaxis Start Date: 04/25/20 Status: Ordered Completed/Discontinued Medications MedicationDrug Class(es)DatesSig (Normalized)Sig (Original)LORazepam 0.5 mg oral tablet (1 source)BenzodiazepineStart: 82-93-9685Jvrvxr 0.5 mg Tab 1 mg = 2 tab(s), Oral, Once a day (at bedtime), take one tab 30 minutes prior to leaving house for biopsy. Take second one 30 minutes prior to scheduled time of biopsy if needed, # 2 tab(s), Refills(s) 0, Pharmacy: [facility]/pharmacy #[id number], 185.4, cm, 12/05/20 11:15:00 EDT, Height/Length Dosing, 153.8, kg, 12/05/20 11:15:00 EDT, Weight Dosing Start Date: 12/06/20 Status: Orderedtriamcinolone acetonide 40 mg/ml injectable suspension (4 sources)CorticosteroidStart: 07-66-1685Fjfmubl-40 May, 40 mgStart: 76-99-5573Huwpoqm -40 mg Jul, 40 mg Problems Active Problems Problem ClassificationProblemDateDocumented DateEpisodic/ChronicAcquired foot deformities (5 sources)Hallux rigidus, left foot; Translations: [Hallux valgus (acquired), left foot]Onset: 92-78-5322ByynwqtDrqveu (1 source)Cough variant asthma; Translations: [COUGH VARIANT ASTHMA]Onset: 79-13-7234DaytzbtNcjzrbqt of urinary tract (10 sources)Calculus of kidney; Translations: [Kidney stone]Onset: 05-27-2022 EpisodicCataract (20 sources)Bilateral age-related nuclear cataracts; Translations: [Age-related nuclear cataract, bilateral]Onset: 121130-94-7963YrpxviaIxybttn kidney disease (2 sources)Chronic kidney disease stage 3A ; Translations: [Chronic kidney disease, stage 3a (CMS-HCC)]94-51-1170BnywzcjLsqgcil ulcer of skin (5 sources)Non-pressure chronic ulcer of other part of left foot limited to breakdown of skin; Translations: [Non-pressure chronic ulcer of other part of left foot with unspecified severity]Onset: 47-58-8577EvvgeaxZupsdvkodrwbq of surgical procedures or medical care (5 sources)Other complications of procedures, not elsewhere classified, initial encounter; Translations: [OTH COMPLICATIONS PROC NEC INITIAL]Onset: 11-05-2022 EpisodicConditions associated with dizziness or vertigo (4 sources)Dizziness and giddiness; Translations: [DIZZINESS AND GIDDINESS] Onset: 16-27-4664GnmvpwzcKadsuahcuo heart failure; nonhypertensive (4 sources)Heart failure, unspecified; Translations: [HEART FAILURE UNSPECIFIED] Onset: 77-60-6496AvsipquKzsxejsf mellitus with complications (20 sources)Type 2 diabetes mellitus; Translations: [Type 2 diabetes mellitus with other specified complication]Onset: 69-99-0215KonrclhUfvftkrv mellitus without complication (5 sources)Type 2 diabetes mellitus without complications; Translations: [TYPE 2 DM WITHOUT COMPLICATIONS]Onset: 20-79-0049DukmcdcRfbjvlekh of lipid metabolism (20 sources)Mixed hyperlipidemia; Translations: [Pure hypercholesterolemia, unspecified]Onset: 99-49-0167VdhvnnwHjtdhezqe of teeth and jaw (1 source)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; Translations: [ADHESIONS AND ANKYLOSIS LEFT TMJ]Onset: 38-63-5710CxhkkndcMhmszknjb hypertension (3 sources)Essential (primary) hypertension; Translations: [Essential (primary) hypertension]Onset: 64-27-2182PpegcraDnjntuqolezli symptoms and ill-defined conditions (3 sources)Dmzdksgy10-12-2307MuthcstfCphp and other crystal arthropathies (20 sources)Gout, unspecified; Translations: [Gouty arthropathy]Onset: 14-17-3008OjtrgzyNzutjbskj (4 sources)Steatohepatitis; Translations: [Nonalcoholic steatohepatitis ([facility]ES)] Onset: 04-12-2021 Resolved: 01-77-8852XtzhcjyNsbnqnzgaqu of prostate (8 sources)Benign prostatic hypertrophy with outflow obstruction; Translations: [Benign prostatic hyperplasia with lower urinary tract symptoms]Onset: 71-91-5356SkcrpaiFjkmixboufbkv mental health disorders (20 sources)Primary insomnia; Translations: [Primary insomnia]Onset: 01-12-2024 85-28-2989JnbtjsvVtgxbmord of unspecified nature or uncertain behavior (3 sources)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 98-40-8443RftjbhhlVxpgunkjznvocg (20 sources)Arthritis of right knee; Translations: [Unilateral primary osteoarthritis, right knee]Onset: 08-07-2021 Resolved: 49-28-6177VnehghsMvfcx aftercare (1 source)Patient encounter status; Translations: [Aftercare following joint replacement surgery]07-93-4016ZnjlrrpDgafh aftercare (1 source)Aftercare following joint replacement surgery; Translations: [Aftercare following joint replacementsurgery]Onset: 22-66-2520GbmijdqHphnh aftercare (1 source)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; Translations: [LONGTERM USE ORAL HYPOGLYCEMIC DX]Onset: 03-11-3386YexwafodExfzq aftercare (1 source)Other roasterman (current) drug therapy; Translations: [OTH CONSTRUCTION PROJECT MGR CURRENT DRUG THERAPY]Onset: 66-38-9003ClzpubbwHilkw aftercare (3 sources)Long-term current use of hpynkijguazup98-29-9466OylgcgkoLvdbw and unspecified benign neoplasm (3 sources)Benign neoplasm of descending evazi49-66-6392YonaglntIqgqr and unspecified benign neoplasm (3 sources)Benign neoplasm of sigmoid -21-0448HppmwrclLizom and unspecified benign neoplasm (3 sources)History of polyp of ixrwp35-06-0290RcneoiqjClscn connective tissue disease (1 source)Presence of left artificial knee joint; Translations: [Presence of left artificial knee joint]Onset: 50-76-8264LjdnaopVzxkt connective tissue disease (4 sources)Pain in left foot; Translations: [PAIN IN LEFT FOOT]Onset: 12-03-2022 EpisodicOther connective tissue disease (1 source)Myalgia, other site; Translations: [MYALGIA OTHER SITE]Onset: 43-99-9095RvrloeltJnrhx connective tissue disease (4 sources)Arthrodesis status; Translations: [ARTHRODESIS STATUS]Onset: 46-62-8578BplctrckXvvux diseases of kidney and ureters (3 sources)Hydronephrosis co-occurrent and due to calculus of kidney and ureter 98-71-5953TidqxannPrhyt endocrine disorders (3 sources)Testicular hypofunction; Translations: [Testicular hypofunction] Onset: 24-04-5961GpjlkilWeceq endocrine disorders (20 sources)Male hypogonadism; Translations: [Testicular hypofunction]Onset: 293343-45-7741LapkoftJqxrw liver diseases (3 sources)Lesion of liver; Translations: [Liver disease, unspecified]Chronic Other liver diseases (1 source)Fatty (change of) liver, not elsewhere classified; Translations: [FATTY CHANGE LIVER NEC]Onset: 60-49-5868YszyvvjPlfvq liver diseases (15 sources)Non-alcoholic fatty liver; Translations: [Fatty (change of) liver, not elsewhere classified]Onset: 768801-95-9967TznvhmdLaihu liver diseases (20 sources)Non-alcoholic fatty liver disease without non-alcoholic steatohepatitis; Translations: [Fatty (change of) liver, not elsewhere classified]Onset: 240502-03-9592QylrurhFpnpm liver diseases (3 sources)Liver doju49-77-2929WizsrfyiVbbyf lower respiratory disease (1 source)Personal history of pneumonia (recurrent); Translations: [PERSONAL HX OF PNEUMONIA RECURRENT]Onset: 14-01-4837EgacaafqLmzfi male genital disorders (6 sources)Male erectile dysfunction, unspecified; Translations: [Erectile dysfunction]Onset: 97-08-0720QlkqewkKeshq nervous system disorders (1 source)Other chronic pain; Translations: [OTHER CHRONIC PAIN]Onset: 50-51-7356NqwygzjCfkea non-traumatic joint disorders (2 sources)Pain in right kneeOnset: 08-07-2021 Resolved: 23-85-8908PbpovsieHtgmq nutritional; endocrine; and metabolic disorders (1 source)Morbid (severe) obesity due to excess calories; Translations: [MORBID SEVERE OBES D/T EXCESS RAFAEL]Onset: 62-37-8295GsqcrloBrevj nutritional; endocrine; and metabolic disorders (1 source)Body mass index (BMI) 39.0-39.9, adult; Translations: [BODY MASS INDEX BMI 39.0-39.9 ADULT]Onset: 16-90-7990RcevrysTjbwu nutritional; endocrine; and metabolic disorders (3 sources)Body mass index 40+ - severely wpgad98-83-8581TlvuphnYyljl nutritional; endocrine; and metabolic disorders (8 sources)Morbid obesity; Translations: [Morbid (severe) obesity due to excess calories]Onset: 468797-75-9250DuyasdaEnxhp nutritional; endocrine; and metabolic disorders (20 sources)Severe obesity; Translations: [Class 2 severe obesity due to excess calories with serious comorbidity and body mass index (BMI) of 37.0 to 37.9 in adult ([facility])]Onset: 483876-94-6309WiuvszmCugoz skin disorders (1 source)Corns and callosities; Translations: [CORNS AND CALLOSITIES]Onset: 61-15-5129XxliupasDfrnp upper respiratory disease (20 sources)Allergic rhinitis due to pollen; Translations: [Allergic rhinitis due to pollen]Onset: 325808-53-5068SmojprfUsdpt upper respiratory infections (1 source)Acute upper respiratory infection, unspecified; Translations: [ACUTE UP RESPIRATORY INFECTION UNS]Onset: 68-45-3560PxnlcrnrYrxxzoqbg heart disease (6 sources)Personal history of pulmonary embolism; Translations: [H/O: pulmonary embolus]Onset: 16-22-5278WinukcvtSxzwlmoh codes; unclassified (1 source)Obstructive sleep apnea (adult) (pediatric); Translations: [OBSTRUCTIVE SLEEP APNEA]Onset: 16-38-1815SnlbzgwClfrbcrt codes; unclassified (20 sources)Obstructive sleep apnea syndrome; Translations: [Obstructive sleep apnea (adult) (pediatric)]Onset: 576105-10-8948StbvalwKobhkolm codes; unclassified (1 source)Family history of cancer; Translations: [Family history of malignant neoplasm of prostate]Onset: 57-31-8307RgndpjawWgkimbvm codes; unclassified (3 sources)Family history of prostate qmnfwo16-81-7865FdwjsbeqIkilzvhmcqu; intervertebral disc disorders; other back problems (20 sources)Spondylosis without myelopathy or radiculopathy, lumbar region; Translations: [Unspecified thoracic, thoracolumbar and lumbosacral intervertebral disc disorder]Onset: 17-33-8726EosjuyqZozbhlmvjlu; intervertebral disc disorders; other back problems (7 sources)Muscle spasm of back; Translations: [Backache]Onset: 01-18-2023 EpisodicUnclassified (4 sources)LOW BACK PAIN, UNSPECIFIED; Translations: [LOW BACK PAIN, UNSPECIFIED]Onset: 53-96-6893Ggqtzmrtvqbl (1 source)PERSONAL HISTORY OF COVID-19; Translations: [PERSONAL HISTORY OF COVID-19]Onset: 25-71-5741Yfqsqshopcxc (1 source)COUGH, UNSPECIFIED; Translations: [COUGH, UNSPECIFIED]Onset: 83-99-6639Qdctjfgzupti (2 sources)Measurement hfabsbi97-20-7136 Past or Other Problems Problem ClassificationProblemDateDocumented DateEpisodic/ChronicOther aftercare (4 sources)Encounter for surgical aftercare following surgery on the circulatory system; Translations: [ENC SURG AFTRCARE FLW SURG CIRC SYS]Onset: 02-18-2022 EpisodicOther aftercare (20 sources)Long-term current use of drug therapy; Translations: [Other roasterman (current) drug therapy]Onset: 176803-02-1300NvmprfrsWyunu and unspecified benign neoplasm (1 source)Hemangioma of intra-abdominal structures; Translations: [Liver hemangioma D18.03]Onset: 04-12-2021 Resolved: 95-73-5472VmneplifEvhek connective tissue disease (1 source)Myalgia, unspecified site; Translations: [MYALGIA UNSPECIFIED SITE] Onset: 41-90-5555AfzwoqdxLwpxt connective tissue disease (4 sources)Other muscle spasm; Translations: [OTHER MUSCLE SPASM]Onset: 13-79-1130XlczvggoDrjmb male genital disorders (1 source)Disorder of prostate, unspecified; Translations: [DISORDER OF PROSTATE UNSPECIFIED]Onset: 33-38-4624BvutwxomVailv non-traumatic joint disorders (3 sources)Pain in left knee; Translations: [PAIN IN LEFT KNEE]Onset: 08-07-2021 Resolved: 02-51-6301UdghskmjUsgvy screening for suspected conditions (not mental disorders or infectious disease) (20 sources)Encounter for screening for malignant neoplasm of prostate; Translations: [Screening for malignant neoplasm done]Onset: 58-19-5930Eiugfunq Phlebitis; thrombophlebitis and thromboembolism (9 sources)Phlebitis and thrombophlebitis of superficial vessels of right lower extremity; Translations: [Phlebitis and thrombophlebitis of superficial vessels of left lower extremity]Onset: 09-59-3884MyiiulqqPvve and subcutaneous tissue infections (20 sources)Cellulitis of left toe; Translations: [Abscess of abdominal wall] Onset: 12-11-2022 Resolved: 666623-06-9635ZsxxewrwEokhlrhdfxvr (1 source)LOW BACK PAIN, UNSPECIFIED; Translations: [LOW BACK PAIN, UNSPECIFIED] Onset: 41-49-1901Jrbpyuevqpck (3 sources)Patient encounter mvbmov48-06-9770Vaqykdgt veins of lower extremity (5 sources)Varicose veins of bilateral lower extremities with pain; Translations: [VARICOSE VNS MARIE LOW EXTREMW/PAIN]Onset: 51-28-3203Xcfbftxm Results Test NameValueInterpretationReference RangeFacilityXR KNEE LEFT (3 VIEWS)on 02-58-7486MHCP: XR KNEE LEFT (3 VIEWS) HISTORY: Aftercare [...] LEFT (3 VIEWS)Ordered By: Radiologist Radiology on 76-21-3359[facility] Work Phone: XR KNEE LEFT (3 VIEWS)on 92-12-5432PB KNEE LEFT (3 VIEWS)EXAM: XR KNEE LEFT (3 VIEWS) HISTORY: Aftercare following left knee joint replacement surgery COMPARISON: 08/23/2024 left knee IMPRESSION: FINDINGS/IMPRESSION: 1. 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 2. Severe osteoarthritic change right knee. Interpreted by: Russ Rodriguez Jr., MD Signed by: Russ Rodriguez Jr., MD 01/31/25 Final resultNormalSelect Medical Trihealth Rehabilitation HospitalRadiology Study observation (narrative) NOMS HealthcareXR Knee - left 3 Viewson 95-78-3384MJIACFRW/IMPRESSION: 1. 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 2. Severe osteoarthritic change right knee. [facility] RIS CONSOLIDATEDEXAM: XR KNEE LEFT (3 VIEWS) HISTORY: Aftercare following left knee joint replacement surgery COMPARISON: 08/23/2024 left knee [facility] RIS Russ Gandara Jr., MD - 01/31/2025 EXAM: XR KNEE LEFT (3 VIEWS) HISTORY: Aftercare following left knee joint replacement surgery COMPARISON: 08/23/2024 left knee IMPRESSION: FINDINGS/IMPRESSION: 1. 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 2. Severe osteoarthritic change right knee. [facility] AmericaSky[facility]opedic CenterRadiology Study observation (narrative)[facility] SystemBugSense [facility]opedic CenterXR Knee - left 3 ViewsOrdered By: Russ Rodriguez on 76-04-2459Qph [facility] Work Phone: tbh MICROALB CREAT RATIO RANDOMon 35-87-8096CARVULGLVQ URINE HGPOOB587.87 mg/dL20.00 - 300.00 mg/dLNOKS HealthcareMICROALBUM CREATININE RATIO UR19.6 mg/g0.0 - 29.9 mg/gNOMS HealthcareComment on above:NO MICROALBUMINURIA 0-29 MG/G CLINICAL MICROALBUMINURIA 30-300 MG/G MACROALBUMINURIA >300 MG/G MICROALBUMIN URINE RANDOM5 mg/dLNINF - 30.0 mg/dLNOKS HealthcareCLINISYNCNCORNERSTONE SPECIALTY [facility] HealthcareMHPT PSA, DIAGNOSTICon 91-64-5412YICJDQRP SPECIFIC ANTIGEN DX1.32 ng/mLNINF - 4.00 ng/mLNOMS HealthcareCLINISYNCNOMS HealthcareXR Knee - left 1 or 2 Viewson 50-98-1743[address] [address] XRay Report Signed Patient: CARLOS CARABALLO MR#: [id number] : 1955 Acct:[id number] Age/Sex: 69 / M ADM Date: 10/04/24 Loc: EC Attending Dr: Daniele Valencia M.D. Ordering Physician: Daniele Valencia M.D. Date of Service: 10/04/24 Procedure(s): XR knee LT 2V Accession Number(s): [id number] cc: Daniele Valencia M.D.; Tulio Ruggiero M.D. The [address] [address] Patient Name: CARLOS CARABALLO MRN: TBH:[id number] date: 1955 Sex: M Assigned Patient Location: Current Patient Location: Accession/Order Number: [id number] Exam Date: 10/04/2024 14:50 Report Date: 10/04/2024 [...] Sheppard Jr., D.O.10/04/2024 2:51 PM Dictation Location: [place] [address] Electronically authenticated by: [id number] Y Date: 10/04/2024 14:51 Dictated By: Rehan Sheppard M.D. Signed By: 10/04/24 1453 DD/ 1451 TD/TT: Environmental Protection Specialist:MARTHAHRadiology, Radiologist, - 10/04/2024 The [place] [id number] XRay Report Signed Patient: CARLOS CARABALLO MR#: [id number] : 1955 Acct:[id number] Age/Sex: 69 / M ADM Date: 10/04/24 Loc: EC Attending Dr: Daniele Valencia M.D. Ordering Physician: Daniele Valencia M.D. Date of Service: 10/04/24 Procedure(s): XR knee LT 2V Accession Number(s): [id number] cc: Daniele Valencia M.D.; Tulio Ruggiero M.D. [address] [address] Patient Name: CARLOS CARABALLO MRN: [id number] date: 1955 Sex: M Assigned Patient Location: Current Patient Location: Accession/Order Number: [id number] Exam Date: 10/04/2024 14:50 Report Date: 10/04/2024 [...] Sheppard Jr., D.O.10/04/2024 2:51 PM Dictation Location: [place] [address] Electronically authenticated by: [id number] Y Date: 10/04/2024 14:51 Dictated By: Rehan Sheppard M.D. Signed By: 10/04/24 1453 DD/ 1451 TD/TT: Environmental Protection Specialist: NOMS HealthcareRadiology Study observation (narrative)NOM HealthcareXR Knee - left 1 or 2 ViewsOrdered By: Radiologist Radiology on 32-58-4237[facility] Work Phone: XR Knee - left 1 or 2 Viewson 89-56-9603Yiv[address] [address] XRay Report Signed Patient: CARLOS CARABALLO MR#: [id number] : 1955 Acct:[id number] Age/Sex: 69 / M ADM Date: 09/06/24 Loc: EC Attending Dr: Daniele Valencia M.D. Ordering Physician: Daniele Valencia M.D. Date of Service: 09/06/24 Procedure(s): XR knee LT 2V Accession Number(s): [id number] cc: Daniele Valencia M.D.; Tulio Ruggiero M.D. The [place] [id number] Patient Name: CARLOS CARABALLO MRN: [id number] date: 1955 Sex: M Assigned Patient Location: Current Patient Location: Accession/Order Number: [id number] Exam Date: 09/06/2024 14:51 Report Date: 09/06/2024 [...] Brunilda Rogers M.D.09/06/2024 2:54 PM Dictation Location: [place] [address] Electronically authenticated by: [id number] Y Date: 09/06/2024 14:54 Dictated By: Brunilda Rogers M.D. Signed By: 09/06/24 1456 DD/ 1454 TD/TT: Environmental Protection Specialist:MARTHAHRadiology, Radiologist, - 09/06/2024 The [place] [id number] XRay Report Signed Patient: CARLOS CARABALLO MR#: [id number] : 1955 Acct:[id number] Age/Sex: 69 / M ADM Date: 09/06/24 Loc: EC Attending Dr: Daniele Valencia M.D. Ordering Physician: Daniele Valencia M.D. Date of Service: 09/06/24 Procedure(s): XR knee LT 2V Accession Number(s): [id number] cc: Daniele Valencia M.D.; Tulio Ruggiero M.D. [place] [id number] Patient Name: CARLOS CARABALLO MRN: [id number]:[id number] date: 1955 Sex: M Assigned Patient Location: Current Patient Location: Accession/Order Number: [id number] Exam Date: 09/06/2024 14:51 Report Date: 09/06/2024 [...] Brunilda Rogers M.D.09/06/2024 2:54 PM Dictation Location: [place] [address] Electronically authenticated by: [id number] Y Date: 09/06/2024 14:54 Dictated By: Brunilda Rogers M.D. Signed By: 09/06/24 1456 DD/ 1454 TD/TT: Environmental Protection Specialist: ROMEL HealthcareRadiology Study observation (narrative)NOMS HealthcareXR Knee - left 1 or 2 ViewsOrdered By: Radiologist Radiology on 83-75-1656ORGW [facility] Work Phone: all BASIC METABOLIC PANELon 58-07-8989Jbven gap [Moles/Vol]14.3 mmol/LNOMS HealthcareCalcium [Mass/Vol]7.7 mg/dLLow8.5 - 10.1 mg/dLNOMS HealthcareChloride [Moles/Vol]108 mmol/LHigh98 - 107 mmol/LNOMS HealthcareCO2 [Moles/Vol]25.4 mmol/L21.0 - 32.0 mmol/LNOMS HealthcareCreatinine [Mass/Vol]1.62 mg/dLHigh0.70 - 1.30 mg/dLNOMS HealthcareGFR/1.73 sq M.predicted CKD-EPI (S/P/Bld) [Vol rate/Area]52Low>=60 mL/min/1.73m 2NOMS HealthcareGlucose [Mass/Vol]112 mg/nWUskt08 - 106 mg/dLNOMS HealthcareInterpretation and review of laboratory resultsAbnormalNOMS HealthcarePotassium [Moles/Vol]4.7 mmol/L3.5 - 5.1 mmol/LNOMS HealthcareSodium [Moles/Vol]143 mmol/L136 - 145 mmol/LNOMS HealthcareTBH EGFR-NON AF HVWSFAJP34Msp>=60 mL/min/1.73m 2NOMS HealthcareUrea nitrogen [Mass/Vol]28 mg/dLHigh7.0 - 18.0 mg/dLNOMS HealthcareUrea nitrogen/Creatinine [Mass ratio]17.3 mg/mgNOMS HealthcareCLINISYNCNCORNERSTONE SPECIALTY [facility] HealthcareALL CBC WITH AUTO DIFFon 26-71-8716HIKEQJYGM ABSOLUTE IWKG3IRZZ HealthcareBasophils/100 WBC (Bld)0.6 %0.2 - 2.0 %NOMS HealthcareEosinophils/100 WBC (Bld)4.9 %0.9 - 7.0 %NOMS HealthcareErythrocyte distribution width (RBC) [Ratio]13.5 %11.0 - 15.0 %NOMS HealthcareHematocrit (Bld) [Volume fraction]43.4 %42.0 - 54.0 %NOMS HealthcareHemoglobin (Bld) [Mass/Vol]14.7 g/dL14.0 - 18.0 g/dLNOKS HealthcareIMMATURE GRANULOCYTES ABS AUTO0.03NOKS HealthcareImmature granulocytes/100 WBC (Bld)0.4 %0.0 - 0.5 %NOMS HealthcareInterpretation and review of laboratory resultsAbnormalNOKS HealthcareLYMPHOCYTES ABSOLUTE AUTO2.2 NOMS HealthcareLymphocytes/100 WBC (Bld)30.6 %20.5 - 60.0 %NOMS [facility] HospitalMCH (RBC) [Entitic mass]32.8 pg25.9 - 34.0 pgNOLee's Summit HospitalMCHC (RBC) [Mass/Vol] 33.9 g/dL29.9 - 35.2 g/dLNOLee's Summit HospitalMCV (RBC) [Entitic vol]96.9 yMDque33.0 - 94.0 fLNOMS HealthcareMONOCYTES ABSOLUTE AUTO0.6NOMS HealthcareMonocytes/100 WBC (Bld)8.3 %1.7 - 12.0 %NOMS HealthcareNEUTROPHILS ABSOLUTE AUTO3.9NOMS Healthcare Neutrophils/100 WBC (Bld)55.2 %43.0 - 75.0 %NOMS HealthcarePlatelet mean volume (Bld) [Entitic vol]8.8 fLLow9.5 - 13.5 fLNOMS HealthcareTBH EO #0.4NOMS HealthcareTBH BRM111LKSF HealthcareTBH RBC4.48LowNOMS HealthcareTBH WBC7.1NOMS HealthcareCLINISYNCNOMS HealthcareXR Knee - left 4 Viewson 25-31-1165[place] [address] XRay Report Signed Patient: CARLOS CARABALLO MR#: [id number] : 1955 Acct:[id number] Age/Sex: 69 / M ADM Date: 08/23/24 Loc: SURGOUT Attending Dr: Daniele Valencia M.D. Ordering Physician: Daneile Valencia M.D. Date of Service: 08/23/24 Procedure(s): XR knee LT 4V Accession Number(s): [id number] cc: Daniele Valencia M.D.; Tulio Ruggiero M.D. The [place] [address] Patient Name: CARLOS CARABALLO MRN: [id number] date: 1955 Sex: M Assigned Patient Location: [facility] Current Patient Location: [facility] Accession/Order Number: [id number] Exam Date: 08/23/2024 12:30 Report Date: 08/23/2024 [...] M.D. Signed By: 08/23/241307 DD/ 04 TD/TT: Environmental Protection Specialist:SIDDHARTHAadiologantonio, Radiologist, - 08/23/2024 [place] [address] XRay Report Signed Patient: CARLOS CARABALLO MR#: [id number] : 1955 Acct:[id number] Age/Sex: 69 / M ADM Date: 08/23/24 Loc: SURGOUT Attending Dr: Daniele Valencia M.D. Ordering Physician: Daniele Valencia M.D. Date of Service: 08/23/24 Procedure(s): XR knee LT 4V Accession Number(s): [id number] cc: Daniele Valencia M.D.; Tulio Ruggiero M.D. The [place] [id number] Patient Name: CARLOS CARABALLO MRN: [facility]:[id number] date: 1955 Sex: M Assigned Patient Location: [facility] Current Patient Location: [facility] Accession/Order Number: [id number] Exam Date: 08/23/2024 12:30 Report Date: 08/23/2024 [...] M.D. Signed By: 08/23/241307 DD/ 1305 TD/TT: Environmental Protection Specialist: [facility] HealthcareRadiology Study observation (narrative)[facility]XR Knee - left 4 ViewsOrdered By: Radiologist Radiology on 92-25-8309SVEOMid [facility] Center Work Phone: aLL TYPE AND SCREENon 18-03-5984GTI and Rh group Nom (Bld)Blood group B Rh(D) positiveUNC Health SoutheasternALL TYPE AND SCREENon 17-00-6590HYW and Rh group Nom (Bld)Blood group B Rh(D) positiveUNC Health SoutheasternXR Knee Standing AP Bilateralon 91-65-8220FQ Knee Standing AP BilateralEXAM: XR Knee Standing [...] Signed, Electronically Signed in Other Vendor System)Normal [facility] HospitalALL MISCELLANEOUS TESTon 30-34-2974QTORIHVBPHDFR TESTCOMMENT.[facility] HealthcareComment on above:Test Ordered: [id number] Nicotine and Metabolite, Ur Qn Nicotine <10.0 ng/mL Reference Range: . This test was developed and its performance characteristics determined by [facility]. It has not been cleared or approved by the Food and Drug Administration. Nicotine levels greater than 100.0 are consistent with the use of tobacco or tobacco cessation products. Cotinine <10.0 ng/mL Reference Range: . This test was developed and its performance characteristics determined by [employer]. It has not been cleared or approved by the Food and Drug Administration. Cotinine levels greater than 200.0 are consistent with the use of tobacco or tobacco cessation products. Performed at: [address] [id number] Sorting Livestock Worker: Giovany Bhatt MD, Phone: [phone] Performed at: [facility] Lab[address] [id number] Sorting Livestock Worker: Ivan Mckay PhD, Phone: [phone] Nicotine and Metabolite, Quantitative, Urine CLINISYTennova Healthcare Knee Surg.Navigate or Plan ONLY Lefton 37-63-4068EHM Knee Surg.Navigate or Plan ONLY LeftHISTORY: Arthritis [...] Signed, Electronically Signed in Other Vendor System)Normal [facility] HospitalXR Knee 1 or 2 Views Lefton 49-21-0489GA Knee 1 or 2 Views LeftEXAM: Left [...] Signed, Electronically Signed in Other Vendor System)Normal [facility] HospitalMRSA SCREENING CULTUREon 15-98-6015MUKKDMMR0 MRSA Screening Culture NOMS OzjyrvgaunPOQFBPFH8RcahgkcgKRST ZnixzdjymoSVQEKBMV9Ulmlnvhht at: CB - [facility] HospitalIosifckrflSQCANCOF[address] [place], [place] [address]YCONMid [facility] Mental Health CenterUifhlmrnbtBDOXIULJ8Dfq Director: Ivan Mckay PhD, Phone: [phone] [facility] Mental Health CenterCLINISYNCNCORNERSTONE SPECIALTY HOSP[facility] HealthcareALL CBC WITH AUTO DIFFon 22-63-8485XCLAJDWRW ABSOLUTE AUTO0.1NOMS HealthcareBasophils/100 WBC (Bld)0.9 %0.2 - 2.0 %NOMS HealthcareEosinophils/100 WBC (Bld)4.9 %0.9 - 7.0 %NOM HealthcareErythrocyte distribution width (RBC) [Ratio]13.7 %11.0 - 15.0 %NOM HealthcareHematocrit (Bld) [Volume fraction]44.7 %42.0 - 54.0 %NOM HealthcareHemoglobin (Bld) [Mass/Vol]14.9 g/dL14.0 - 18.0 g/dLNOLee's Summit HospitalIMMATURE GRANULOCYTES ABS AUTO 0.02NOMS HealthcareImmature granulocytes/100 WBC (Bld)0.3 %0.0 - 0.5 %[facility] HealthcareInterpretation and review of laboratory resultsAbnormalNOLee's Summit Hospital LYMPHOCYTES ABSOLUTE AUTO1.5NOLee's Summit HospitalLymphocytes/100 WBC (Bld)23 %20.5 - 60.0 %[facility] WestH (RBC) [Entitic mass]32.3 pg25.9 - 34.0 pgNOCooper County Memorial HospitalHC (RBC) [Mass/Vol]33.3 g/dL29.9 - 35.2 g/dLMid [facility] Mental Health CenterMCV (RBC) [Entitic vol]97 wBJilc05.0 - 94.0 fLNOKS HealthcareMONOCYTES ABSOLUTE AUTO0.5 NOM HealthcareMonocytes/100 WBC (Bld)7.9 %1.7 - 12.0 %[facility]OM Healthcare NEUTROPHILS ABSOLUTE AUTO4.1NOMS HealthcareNeutrophils/100 WBC (Bld)63 %43.0 - 75.0 %NOMS HealthcarePlatelet mean volume (Bld) [Entitic vol]8.8 fLLow9.5 - 13.5 fLNOMS HealthcareTBH EO #0.3NOMS HealthcareTBH NFG882OEVI HealthcareTBH RBC4.61 LowNOMS HealthcareTBH WBC6.6NOMS HealthcareCLINISYNCNOMS HealthcareECG 12-LEADon 55-42-0772GdzAn[place] [address] Electrocardiograph Report Signed Patient: CARLOS CARABALLO MR#: [id number] : 1955 Acct:[id number] Age/Sex: 68 / M ADM Date: 07/20/24 Loc: PST Attending Dr: Daniele Valencia M.D. Ordering Physician: Daniele Valencia M.D. 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 Signed By: 07/20/242001 DD/ 0950 TD/TT: Environmental Protection Specialist:TBHRadiology, Radiologist, - 07/20/2024 The [place] [id number] Electrocardiograph Report Signed Patient: CARLOS CARABALLO MR#: [id number] : 1955 Acct:[id number] Age/Sex: 68 / M ADM Date: 07/20/24 Loc: PST Attending Dr: Daniele Valencia M.D. Ordering Physician: Daniele Valencia M.D. 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 Signed By: 07/20/242001 DD/ TD/TT: Environmental Protection Specialist: [place] [address] Electrocardiograph Report Signed Patient: CARLOS CARABALLO MR#: [id number] : 1955 Acct:[id number] Age/Sex: 68 / M ADM Date: 07/20/24 Loc: PST Attending Dr: Daniele Valencia M.D. Ordering Physician: Daniele Valencia M.D. 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 Signed By: 07/20/242000 DD/ TD/TT: Environmental Protection Specialist:TBHRadiology, Radiologist, - 07/20/2024 [place] [address] Electrocardiograph Report Signed Patient: CARLOS CARABALLO MR#: [id number] : 1955 Acct:[id number] Age/Sex: 68 / M ADM Date: 07/20/24 Loc: PST Attending Dr: Daniele Valencia M.D. Ordering Physician: Daniele Valencia M.D. 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 Signed By: 07/20/242000 DD/ TD/TT: Environmental Protection Specialist: [facility] HealthcareRadiology Study observation (narrative)[facility] HealthcareRadiology Study observation (narrative)NOMS HealthcareECG 12-LEADOrdered By: Radiologist Radiology on 80-20-9281VTPG [facility] Work Phone: [facility] Work Phone: TB UA (CLEAN/CATCH) LOCKSTITCHER/MICRO IF IND.on 07-20-2024 BILIRUBIN URINENegativeNEGATIVENOMS HealthcareBLOOD URINENegativeNEGATIVENOMS HealthcareClarity (U)CLEARCLEARNOMS HealthcareColor (U)LT. YELLOWYELLOWNOMS HealthcareGLUCOSE URINE UANegativeNEGATIVE mg/dLNOMS HealthcareKetones Ql (U) NegativeNEGATIVE mg/dLNOMS HealthcareLeukocyte esterase Test strip Ql (U) NegativeNEGATIVENOMS HealthcareNITRITE URINENegativeNEGATIVENOMS HealthcarepH (U)6.0 [pH]5.0 - 9.0NOMS HealthcarePROTEIN URINENegativeNEG/TRACE mg/dLNOMS HealthcareSPECIFIC GRAVITY URINE1.0251.005 - 1.025NOMS HealthcareURINE MICROSCOPIC INDICATEDNONOMS HealthcareUROBILINOGEN URINE0.2 EU/dL0.2 - 1.0 EU/dL NOMS HealthcareCLINISYNCNOMS HealthcareXR CHEST 2Von 60-79-1166Bdg [place] [address] XRay Report Signed Patient: CARLOS CARABALLO MR#: [id number] : 1955 Acct:[id number] Age/Sex: 68 / M ADM Date: 07/20/24 [facility] Dr: Daniele Valencia M.D. Ordering Physician: Daniele Valencia M.D. Date of Service: 07/20/24 Procedure(s): XR chest 2V Accession Number(s): [id number] cc: Daniele Valencia M.D.; Tulio Ruggiero M.D. The [address] [address] Patient Name: CARLOS CARABALLO MRN: [id number] date: 1955 Sex: M [facility]igned [facility] Current Patient Location: LAB Accession/Order Number: [id number] Exam Date: 07/20/2024 10:06 Report Date: 07/20/2024 [...] M.D. Signed By: 07/20/241706 DD/ 04 TD/TT: Environmental Protection Specialist:TBHRadiology, Radiologist, - 07/20/2024 [place] [address] XRay Report Signed Patient: CARLOS CARABALLO MR#: [id number] : 1955 Acct:[id number] Age/Sex: 68 / M ADM Date: 07/20/24 [facility] Attending Dr: Daniele Valencia M.D. Ordering Physician: Daniele Valencia M.D. Date of Service: 07/20/24 Procedure(s): XR chest 2V Accession Number(s): [id number] cc: Daniele Valencia M.D.; Tulio Ruggiero M.D. The [address] [id number] Patient Name: CARLOS CARABALLO MRN: [id number] date: 1955 Sex: M [facility]igned [facility] Current Patient Location: LAB Accession/Order Number: [id number] Exam Date: 07/20/2024 10:06 Report Date: 07/20/2024 [...] M.D. Signed By: 07/20/241706 DD/ 04 TD/TT: Environmental Protection Specialist: ROMEL HealthcareRadiology Study observation (narrative)ROMEL CrumpXR CHEST 2V Ordered By: Radiologist Radiology on 76-47-6123QXLD Healthcare Work Phone: ca ECHO DOPPLER COMPLETEon 33-63-8398LekAn[place], [place] [address] Cardiology Report Signed Patient: CARLOS CARABALLO MR#: [id number] : 1955 Acct:[id number] Age/Sex: 68 / M ADM Date: 06/28/24 Loc: CARD Attending Dr: Ken Mercer M.D. Ordering Physician: Ken Mercer M.D. Date of Service: 06/28/24 Procedure(s): CA echo doppler complete Accession Number(s): [id number] cc: Ken Mercer M.D.; Tulio Ruggiero M.D. Patient Name: CARLOS CARABALLO MR#: [id number] : 1955 Exam Date: 06/28/2024 Ordering Doctor: [...] Dictated By: AMARI MCMANUS (more content not included)...[facility] Radiology, Radiologist, MD - 06/28/2024 [place] [address] Cardiology Report Signed Patient: CARLOS CARABALLO MR#: [id number] : 1955 Acct:[id number] Age/Sex: 68 / M ADM Date: 06/28/24 Loc: CARD Attending Dr: Ken Mercer M.D. Ordering Physician: Ken Mercer M.D. Date of Service: 06/28/24 Procedure(s): CA echo doppler complete Accession Number(s): [id number] cc: Ken Mercer M.D.; Tulio Ruggiero M.D. Patient Name: CARLOS CARABALLO MR#: [id number] : 1955 Exam Date: 06/28/2024 Ordering Doctor: [...] Signed By: 06/28/24 175 DD/ 174 TD/TT: Environmental Protection Specialist: [facility] CenterRadiology Study observation (narrative)[facility] ECHO DOPPLER COMPLETEOrdered By: Radiologist Radiology on 00-30-9012GLQZ [employer] Work Phone: XR Knee - bilateral 4 Viewson 54-62-1395Bli[place], [place] [address] XRay Report Signed Patient: CARLOS CARABALLO MR#: [id number] : 1955 Acct:[id number] Age/Sex: 68 / M ADM Date: 06/21/24 Loc: EC Attending Dr: Daniele Valencia M.D. Ordering Physician: Daniele Valencia M.D. Date of Service: 06/21/24 Procedure(s): XR knee MARIE 4V Accession Number(s): [id number] cc: Daniele Valencia M.D.; Tulio Ruggiero M.D. [address] [address] Patient Name: CARLOS CARABALLO MRN: [id number] date: 1955 Sex: M Assigned Patient Location: EC Current Patient Location: Accession/Order Number: [id number] Exam Date: 06/21/2024 13:16 Report Date: 06/23/2024 06:16 At the request of: DANIELE VALENCIA Procedure: XR knee MARIE 4V EXAMINATION: XR knee MARIE 4V HISTORY: BILATERAL KNEE PAIN COMPARISON: XR knee bilateral 03/24/2023 FINDINGS: RIGHT FINDINGS: BONES: Marked narrowing of the medial joint space with vksv-hd-pqte articulation. 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 SOFT TISSUES: No visible soft tissue swelling. OTHER: Small joint effusion. LEFT FINDINGS: BONES: Marked narrowing of the medial joint space with xhjn-tr-dlzv articulation. Periarticular degenerative osteophytes involving all 3 [...] M.D. Signed By: 06/23/24618 DD/ 5 TD/TT: Environmental Protection Specialist:TBHRadiology, Radiologist, MD - 06/23/2024 [place] [address] XRay Report Signed Patient: CARLOS CARABALLO MR#: [id number] : 1955 Acct:[id number] Age/Sex: 68 / M ADM Date: 06/21/24 Loc: [facility] Attending Dr: Daniele Valencia M.D. Ordering Physician: Daniele Valencia M.D. Date of Service: 06/21/24 Procedure(s): XR knee MARIE 4V Accession Number(s): [id number] cc: Daniele Valencia M.D.; Tulio Ruggiero M.D. [facility] [place] [address] Patient Name: CALROS CARABALLO MRN: [id number] date: 1955 Sex: M Assigned Patient Location: [facility] Current Patient Location: Accession/Order Number: [id number] Exam Date: 06/21/2024 13:16 Report Date: 06/23/2024 06:16 At the request of: DANIELE VALENCIA Procedure: XR knee MARIE 4V EXAMINATION: XR knee MARIE 4V HISTORY: BILATERAL KNEE PAIN COMPARISON: XR knee bilateral 03/24/2023 FINDINGS: RIGHT FINDINGS: BONES: Marked narrowing of the medial joint space with uzui-ra-aacs articulation. 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 SOFT TISSUES: No visible soft tissue swelling. OTHER: Small joint effusion. LEFT FINDINGS: BONES: Marked narrowing of the medial joint space with hwzb-qf-zspf articulation. Periarticular degenerative osteophytes involving all 3 [...] M.D. Signed By: 06/23/24618 DD/ 5 TD/TT: Environmental Protection Specialist: ROMEL HealthcareRadiology Study observation (narrative)[facility] CenterXR Knee - bilateral 4 ViewsOrdered By: Radiologist Radiology on 16-65-2812[employer] Work Phone: [facility] [phone] From: Cyndi Montano To: EU - Administrative; Sent: 06/04/2024 12:06:06 EST Show up: 06/04/2024 12:05:00 EST Subject: Ambulatory Reminder Due Date/Time: 05/28/2025 12:05:00 EST Reminder/Recall Patient needs scheduled for a 1 yr f/u, PCP to check PSA. Due back in 06/07 M to call and scheduleGerman HospitalUrology Office/Clinic Noteon 34-88-5240Thtmefp Office/Clinic NoteUrology Office/Clinic Note Chief Complaint 5mo [...] E&M of Est. Patient Moderate 30-39 Min 19315 Influenza immunization status assessed 1030F Medication list [...] E&M of Est. Patient Moderate 30-39 Min 03878 3. Hypogonadism male (E29.1: Testicular hypofunction) Managed by PCP. On T injections. Ordered: Complex E&M Add on G2211 E&M of Est. Patient Moderate 30-39 Min 39405 4. ED (erectile dysfunction) (N52.9: Male erectile dysfunction, unspecified) Failed Tadalafil. A lot of neuropathy. Not interested in additional tx. Ordered: Complex E&M Add on G2211 E&M of Est. Patient Moderate 30-39 Min 06548 Follow-up With When Contact Information LIZ ABREU PA-C, URL Within 1 year Additional Instructions: Patient Education Kidney Stones, Wwiy-ao-Usmd Problem List/Past Medical History Ongoing Abnormal abdominal [...] BPH with urinary obstructio (more content not included)...German HospitalComment on above:Result Comment: Electronically Signed By: LIZ ABREU PA-C\.br\Date and Time Signed: 05/27/2409:57 ESTXR ABDOMEN 1Von 51-47-8313[place]ft[place] [address] XRay Report Signed Patient: CARLOS CARABALLO MR#: [id number] : 1955 Acct:[id number] Age/Sex: 68 / M ADM Date: 05/17/24 Loc: RAD Attending Dr: Liz MARTELL Ordering Physician: Lzi Abreu Date of Service: 05/17/24 Procedure(s): XR abdomen 1V Accession Number(s): [id number] cc: Tulio Ruggiero M.D.; Liz Abreu [address] [address] Patient Name: CARLOS CARABALLO MRN: [id number] date: 1955 Sex: M Assigned Patient Location: RAD Current Patient Location: Accession/Order Number: [id number] Exam Date: 05/17/2024 08:50 Report Date: 05/18/2024 [...] Steele M.D. Signed By: 05/18/2456 DD/ TD/TT: Environmental Protection Specialist:SIDDHARTHAadiologantonio, Radiologist, - 05/18/2024 [place] [address] XRay Report Signed Patient: CARLOS CARABALLO MR#: [id number] : 1955 Acct:[id number] Age/Sex: 68 / M ADM Date: 05/17/24 Loc: RAD Attending Dr: Liz MARTELL Ordering Physician: Liz Abreu Date of Service: 05/17/24 Procedure(s): XR abdomen 1V Accession Number(s): [id number] cc: Tulio Ruggiero M.D.; Liz Abreu [place] [id number] Patient Name: CARLOS CARABALLO MRN: [id number] date: 1955 Sex: M Assigned Patient Location: RAD Current Patient Location: Accession/Order Number: [id number] Exam Date: 05/17/2024 08:50 Report Date: 05/18/2024 [...] Steele M.D. Signed By: 05/18/2456 DD/ TD/TT: Environmental Protection Specialist: [facility] HealthcareRadiology Study observation (narrative)NOM HealthcareXR ABDOMEN 1VOrdered By: Radiologist Radiology on 57-33-1815[employer] Work Phone: XR FOOT LT MIN 3Von 27-07-9257[place] [address] XRay Report Signed Patient: CARLOS CARABALLO MR#: [id number] : 1955 Acct:[id number] Age/Sex: 68 / M ADM Date: 02/11/24 Loc: EC Attending Dr: Tonio Bell D.P.M. Ordering Physician: Tonio Bell D.P.M. Date of Service: 02/11/24 Procedure(s): XR foot LT min 3V Accession Number(s): [id number] cc: Tonio Bell D.P.M.; Tulio Ruggiero M.D. The [place] [phone] Patient Name: CARLOS CARABALLO MRN: [id number] date: 1955 Sex: M Assigned Patient Location: EC Current Patient Location: Accession/Order Number: [id number] Exam Date: 02/11/2024 10:36 Report Date: 02/12/2024 [...] M.D. Signed By: 02/12/24625 DD/ 3 TD/TT: Environmental Protection Specialist:TBHRadiology, Radiologist, - 02/12/2024 [place] [address] XRay Report Signed Patient: CARLOS CARABALLO MR#: [id number] : 1955 Acct:[id number] Age/Sex: 68 / M ADM Date: 02/11/24 Loc: EC Attending Dr: Tonio Bell D.P.M. Ordering Physician: Tonio Bell D.P.M. Date of Service: 02/11/24 Procedure(s): XR foot LT min 3V Accession Number(s): [id number] cc: Tonio Bell D.P.M.; Tulio Ruggiero M.D. The [place] [phone] Patient Name: CARLOS CARABALLO MRN: [id number] date: 1955 Sex: M Assigned Patient Location: Current Patient Location: Accession/Order Number: [id number] Exam Date: 02/11/2024 10:36 Report Date: 02/12/2024 [...] M.D. Signed By: 02/12/24625 DD/ 3 TD/TT: Environmental Protection Specialist: [facility] HealthcareRadiology Study observation (narrative)NOM HealthcareXR FOOT LT MIN 3VOrdered By: Radiologist Radiology on 30-18-9090[employer] [facility] Work Phone: XR FOOT LT MIN 3Von 29-08-5082[place] [address] XRay Report Signed Patient: CARLOS CARABALLO MR#: [id number] : 1955 Acct:[id number] Age/Sex: 68 / M ADM Date: 10/08/23 Loc: EC Attending Dr: Tonio Bell D.P.M. Ordering Physician: Tonio Bell D.P.M. Date of Service: 10/08/23 Procedure(s): XR foot LT min 3V Accession Number(s): [id number] cc: Tonio Bell D.P.M.; Tulio Ruggiero M.D. [place] [phone] Patient Name: CARLOS CARABALLO MRN: [id number] date: 1955 Sex: M Assigned Patient Location: Current Patient Location: Accession/Order Number: [id number] Exam Date: 10/08/2023 08:55 Report Date: 10/09/2023 [...] Signed By: 10/09/23 0553 DD/ 0550 TD/TT: Environmental Protection Specialist:SIDDHARTHAadiology, Radiologist, - 10/09/2023 [place] [address] XRay Report Signed Patient: CARLOS CARABALLO MR#: [id number] : 1955 Acct:[id number] Age/Sex: 68 / M ADM Date: 10/08/23 Loc: EC Attending Dr: Tonio Bell D.P.M. Ordering Physician: Tonio Bell D.P.M. Date of Service: 10/08/23 Procedure(s): XR foot LT min 3V Accession Number(s): [id number] cc: Tonio Bell D.P.M.; Tulio Ruggiero M.D. The [place] [phone] Patient Name: CARLOS CARABALLO MRN: [id number] date: 1955 Sex: M Assigned Patient Location: Current Patient Location: Accession/Order Number: [id number] Exam Date: 10/08/2023 08:55 Report Date: 10/09/2023 [...] Mccartney M.D. Signed By: 10/09/2353 DD/ TD/TT: Environmental Protection Specialist: ROMEL HealthcareRadiology Study observation (narrative)[facility] HealthcareXR FOOT LT MIN 3VOrdered By: Radiologist Radiology on 85-47-5041[facility] Work Phone: ct FOOT LT WO CONon 02-24-0291Aqt[place], [place] [address] CT Scan Report Signed Patient: CARLOS CARABALLO MR#: [id number] : 1955 Acct:[id number] Age/Sex: 67 / M ADM Date: 07/04/23 Loc: CT Attending Dr: Tonio Bell D.P.M. Ordering Physician: Tonio Bell D.P.M. Date of Service: 07/04/23 Procedure(s): CT foot LT wo con Accession Number(s): [id number] cc: Tulio Ruggiero M.D. [place] [phone] Patient Name: CARLOS CARABALLO MRN: [id number] date: 1955 Sex: M Assigned Patient Location: CT Current Patient Location: Accession/Order Number: [id number] Exam Date: 07/04/2023 10:18 Report Date: 07/05/2023 [...] M.D. Signed By: 07/05/23153 DD/ 1 TD/TT: Environmental Protection Specialist:TBHRadiology, Radiologist, MD - 07/05/[address] [address] [address] Scan Report Signed Patient: CARLOS CARABALLO MR#: [id number] : 1955 Acct:[id number] Age/Sex: 67 / M ADM Date: 07/04/23 Loc: CT Attending Dr: Tonio Bell D.P.M. Ordering Physician: Tonio Bell D.P.M. Date of Service: 07/04/23 Procedure(s): CT foot LT wo con Accession Number(s): [id number] cc: Tulio Ruggiero M.D. The [address] [address] Patient Name: CARLOS CARABALLO MRN: [id number] date: 1955 Sex: M Assigned Patient Location: CT Current Patient Location: Accession/Order Number: [id number] Exam Date: 07/04/2023 10:18 Report Date: 07/05/2023 [...] M.D. Signed By: 07/05/23153 DD/ 1 TD/TT: Environmental Protection Specialist: ROMEL HealthcareRadiology Study observation (narrative)NOM HealthcareCT FOOT LT WO CONOrdered By: Radiologist Radiology on 97-54-2144[facility] Work Phone: XR FOOT LT MIN 3Von 98-20-8544[place]vk[place], [place] [address] XRay Report Signed Patient: CARLOS CARABALLO MR#: [id number] : 1955 Acct:[id number] Age/Sex: 67 / M ADM Date: 07/02/23 Loc: RAD Attending Dr: Tonio Bell D.P.M. Ordering Physician: Tonio Bell D.P.M. Date of Service: 07/02/23 Procedure(s): XR foot LT min 3V Accession Number(s): [id number] cc: Tonio Bell D.P.M.; Tulio Ruggiero M.D. The [place] [phone] Patient Name: CARLOS CARABALLO MRN: [id number] date: 1955 Sex: M Assigned Patient Location: [facility] Current Patient Location: [facility] Accession/Order Number: [id number] Exam Date: 07/02/2023 08:44 Report Date: 07/02/2023 [...] Signed By: 07/02/23 1038 DD/ 1035 TD/TT: Environmental Protection Specialist:SIDDHARTHAadiology, Radiologist, - 07/02/2023 [place] [address] XRay Report Signed Patient: CARLOS CARABALLO MR#: [id number] : 1955 Acct:[id number] Age/Sex: 67 / M ADM Date: 07/02/23 Loc: RAD Attending Dr: Tonio Bell D.P.M. Ordering Physician: Tonio Bell D.P.M. Date of Service: 07/02/23 Procedure(s): XR foot LT min 3V Accession Number(s): [id number] cc: Tonio Bell D.P.M.; Tulio Ruggiero M.D. [place] [address] Patient Name: CARLOS CARABALLO MRN: [id number] date: 1955 Sex: M Assigned Patient Location: [facility] Current Patient Location: RAD Accession/Order Number: [id number] Exam Date: 07/02/2023 08:44 Report Date: 07/02/2023 [...] Signed By: 07/02/23 1038 DD/ 1035 TD/TT: Environmental Protection Specialist: ROMEL HealthcareRadiology Study observation (narrative)[facility] HealthcareXR FOOT LT MIN 3VOrdered By: Radiologist Radiology on 21-59-7974[employer] Work Phone: XR LSPINE W_OBLS AND FLEX_EXTon 06-08-0498RH LSPINE W_OBLS AND FLEX_EXTEXAMINATION: XR LSPINE W_OBLS [...] Electronically authenticated by: RACHEAL STEELE Date: 2022-12-05 09:46NoCommunity Regional Medical CenterCB AUTO DIFFon 48-48-4198BYAL #0.1 103/ulNormal0.0-0.1The [facility] HospitalComment on above:Performed By: #### POCGLUC #### [facility] [address] [place] [address] [address] Juliet WilkesBasophils/100 WBC (Bld)0.7 %Normal0.2-2.0[facility] Comment on above:Performed By: #### POCGLUC #### [facility] [address] [place] [address] [address] Juliet Padgett #0.4 103/ulNormal0.0-0.7The [facility] HospitalComment on above: Performed By: #### POCGLUC #### [facility] [address] [place] [address] [address] Juliet Huddlestonosinophils/100 WBC (Bld)5.3 %Normal0.9-7.0[facility] Comment on above:Performed By: #### POCGLUC #### [facility] [address] [place] [address] [address] Juliet Huddlestonrythrocyte distribution width (RBC) [Ratio]14.0 %Ygxqbd64.0-15.0 The [facility] HospitalComment on above:Performed By: #### POCGLUC #### [facility] [address] [place] [address] Dr. Juliet Hillatoshirazt (Bld) [Volume fraction]43.6 %Zddenq67.0-54.0The [facility] HospitalComment on above:Performed By: #### POCGLUC #### [facility] [address] [place] [address] Dr. Juliet WilkesHemoglobin (Bld) [Mass/Vol]14.9 g/eRTjgxbk68.0-18.0The [facility] HospitalComment on above:Performed By: #### POCGLUC #### [facility] [address] [place] [address] Dr. Juliet Cervantes #0.03 10e3/ulNormal0.00-0.03The [facility] HospitalComment on above:Performed By: #### POCGLUC #### [facility] [address] [place] [address] Dr. Juliet Cervantes %0.4 %Normal0.0-0.5The [facility] HospitalComment on above: Performed By: #### POCGLUC #### [facility] [address] [place] [address] Dr. Juliet Arambula #2.0 103/ulNormal1.2-3.8The [facility] HospitalComment on above:Performed By: #### POCGLUC #### [facility] [address] [place] [address] Dr. Juliet Westhocytes/100 WBC (Bld)29.3 %Ucboth99.5-60.0The [facility] HospitalComment on above:Performed By: #### POCGLUC #### [facility] [address] [place] [address] Dr. Juliet McdanielUAL DIFF REQNONormalThe Wayne HospitalComment on above: Performed By: #### POCGLUC #### [facility] [address] [place] [address] Dr. Juliet Yanes (RBC) [Entitic mass]33.4 qtDnllnv02.9-34.0The [facility] HospitalComment on above:Performed By: #### POCGLUC #### [facility] [address] [place] [address] Dr. Juliet Valderrama (RBC) [Mass/Vol]34.2 g/qPWpyvup58.9-35.2The [facility] HospitalComment on above:Performed By: #### POCGLUC #### [facility] [address] [place] [address] Dr. Juliet Penaloza (RBC) [Entitic vol]97.8 fLCritically high80.0-94.0The [facility] HospitalComment on above:Performed By: #### POCGLUC #### [facility] [address] [place] [address] Dr. Juliet Dumont #0.7 103/ulNormal0.3-0.8The [facility] HospitalComment on above:Performed By: #### POCGLUC #### [facility] [address] [place] [address] Dr. Juliet Maciasocytes/100 WBC (Bld)9.9 %Normal1.7-12.0[facility] Comment on above:Performed By: #### POCGLUC #### [facility] [address] [place] [address] Dr. Juliet Del Angel #3.7 103/ulNormal1.4-6.5The [facility] HospitalComment on above:Performed By: #### POCGLUC #### [facility] [address] [place] [address] Dr. Juliet Caballeroophils/100 WBC (Bld)54.4 %Fumaxe07.0-75.0The [facility] HospitalComment on above:Performed By: #### POCGLUC #### [facility] [address] [place] [address] Dr. Juliet Cespedeslet mean volume (Bld) [Entitic vol]9.0 fLCritically low 9.5-13.5The [facility] HospitalComment on above:Performed By: #### POCGLUC #### [facility] [address] [place] [address] [address] Juliet WilkesPLT211 103/olOjsphl377-440Mgz Wayne HospitalComment on above: Performed By: #### POCGLUC #### [facility] [address] [place] [address] [address] Juliet WilkesRBC4.46 106/ulCritically low4.70-6.10The [facility] HospitalComment on above:Performed By: #### POCGLUC #### [facility] [address] [place] [address] [address] Juliet WilkesWBC6.8 103/ulNormal4.0-11.0The [facility] HospitalComment on above: Performed By: #### POCGLUC #### [facility] [address] [place] [address] Dr. Juliet WilkesPOINT OF CARE GLUCOSEon 36-85-8193Lxdtybe [Mass/Vol]100 mg/dL Igryqy98-504Ilt [facility] HospitalComment on above:Performed By: #### POCGLUC #### [facility] [address] [place] [address] Dr. Juliet WilkesGlucose [Mass/Vol]94 mg/aVVsvuma79-188UypKettering Health [facility] Comment on above:Performed By: #### A1C #### [facility] [address] [place] [address] Dr. Juliet WilkesPROF CHEM 8 (BAS METB)on 28-74-3090Nwkml gap [Moles/Vol]14.0 mmol/LNormalThe Wayne HospitalComment on above:Performed By: #### BMP #### [facility] [address] [place] [address] Dr. Juliet WilkesCalcium [Mass/Vol]9.0 mg/dLNormal8.5-10.1[facility] Comment on above:Performed By: #### BMP #### [facility] [address] [place] [address] Dr. Juliet WilkesChloride [Moles/Vol]107 mmol/KWqavoh60-505Xkh [facility] Comment on above:Performed By: #### BMP #### [facility] [address] [place] [address] [address] Juliet WilkesCO2 [Moles/Vol]28.7 mmol/KMfsygb45.0-32.0[facility] Comment on above:Performed By: #### BMP #### [facility] [address] [place] [address] [address] Juliet WilkesCreatinine [Mass/Vol]1.41 mg/dLCritically high0.70-1.30The Wayne HospitalComment on above:Performed By: #### BMP #### [facility] [address] [place] [address] [address] Laureano ChangEGFR-AF AUSTRALIAN>60Normal>=60The Wayne HospitalComment on above:Performed By: #### BMP #### [facility] [address] [place] [address] [address] Juliet HuddlestonGFR-NON AF JJKRJIJN88 mL/min/1.59g2Jggltlexos low>=60The Wayne HospitalComment on above:Performed By: #### BMP #### [facility] [address] [place] [address] [address] Juliet WilkesGlucose [Mass/Vol]95 mg/gBQpguqk64-945IzvKettering Health [facility] Comment on above:Performed By: #### BMP #### [facility] [address] [place] [address] [address] Juliet WilkesPotassium [Moles/Vol]4.7 mmol/LNormal3.5-5.1[facility] Comment on above:Performed By: #### BMP #### [facility] [address] [place] [address] [address] Juliet WilkesSodium [Moles/Vol]145 mmol/NBexcdn080-845ZjdKettering Health [facility] Comment on above:Performed By: #### BMP #### [facility] [address] [place] [address] [address] Juliet WilkesUrea nitrogen [Mass/Vol]25.0 mg/dLCritically high7.0-18.0The [facility] HospitalComment on above:Performed By: #### BMP #### [facility] [address] [place] [address] [address] Juliet WilkesUrea nitrogen/Creatinine [Mass ratio]17.7 mg/mgNoCommunity Regional Medical CenterComment on above:Performed By: #### BMP #### [facility] [address] [place] [address] [address] Juliet Watson Visiton 45-00-4040Htuojy-up [id number] IlyaCarlos Farrar 1955 M Date Provider Department Center 07/31/2022 BENTLEY MENDOZA [facility] Family History Problem Relation Age of Onset Stroke Father Family Status - Relation Status Age at Father Level of Service:61301 [place] OFFICE/OUTPATIENT ESTABLISHED MOD MDM 30-39 MIN Reason for Visit and Comments: Hyperlipidemia [182] Hypertension [145092] history of PE [Other]NormalUnLakeHealth Beachwood Medical CenterCULTURE WOUNDon 79-41-9756MEMSRRE WOUNDCulture Observations: No growth of anaerobes at 72 hours. Isolate 1 Stenotrophomonas maltophilia Moderate growth of ORGANISM 1 Stenotrophomonas maltophilia ANTIBIOTIC M.I.C RX STATUS Levofloxacin 1 S F Trimethoprim/Sulfamethoxazole <=20 S FNormalThe Wayne HospitalComment on above:Performed By: #### WOUNDCX ####[facility] [address] [place] [address]Dr. Juliet WilkesGLYCOHEMOGLOBIN A1Con 27-11-1492DKQ RECOMMENDATIONSEE BELOWNoCommunity Regional Medical CenterComment on above:Result Comment: ADA RECOMMENDED LIMIT 4.0 - 6.0 ADA THERAPEUTIC TARGET < 7.0 ACTION SUGGESTED > 7.0Performed By: #### A1C #### [facility] [address] [place] [address] [address] Juliet WilkesGlucose [Mass/Vol]111 mg/dLMain Campus Medical CenterComment on above:Performed By: #### A1C #### [facility] [address] [place] [address] [address] Juliet WilkesHbA1c (Bld) [Mass fraction]5.5 %Normal4.5-6.2The Wayne HospitalComment on above:Performed By: #### A1C #### [facility] [address] [place] [address] [address] Juliet Valdovinos M/2D COMPLETEon 41-37-4699LLQWISBAJK M/2D COMPLETE Patient: CARLOS CARABALLO Exam Date: 06/28/2022 : 1955 Gender:M Ordering : DR KEN MERCER M.D. Admission #: [id number] Family : Order #: [id number] CLICK HERE TO VIEW EXAM ECHOCARDIOGRAM REPORT [...] by: Amari Mcmanus M.D. on 07/04/2022 at 13:38NoCommunity Regional Medical CenterURIC ACID SERUMon 59-08-2348Mluqg [Mass/Vol]6.9 mg/dLNormal3.5-7.2[facility] MemorialComment on above:Performed By: #### A1C #### [facility] [address] [place] [address] Dr. Juliet WilkesXR KUB 1 VIEWon 53-57-5172NA KUB 1 VIEWEXAMINATION: XR KUB 1 VIEW [...] Electronically authenticated by: RACHEAL STEELE Date: 2022-05-28 07:31NormalThGalion Hospital AUTO DIFFon 67-99-3828REQZ #0.1 103/ulNormal0.0-0.1The [facility] HospitalComment on above:Performed By: #### CBC #### [facility] [address] [place] [address] [address] Juliet WilkesBasophils/100 WBC (Bld)0.9 %Normal0.2-2.0[facility] Comment on above:Performed By: #### CBC #### [facility] [address] [place] [address] Dr. Juliet Padgett #0.4 103/ulNormal0.0-0.7The Wayne HospitalComment on above: Performed By: #### CBC #### [facility] [address] [place] [address] Dr. Juliet Huddlestonosinophils/100 WBC (Bld)5.2 %Normal0.9-7.0[facility] Comment on above:Performed By: #### CBC #### [facility] [address] [place] [address] Dr. Juliet Huddlestonrythrocyte distribution width (RBC) [Ratio]13.6 %Brtyri99.0-15.0 [facility] MemorialComment on above:Performed By: #### CBC #### [facility] [address] [place] [address] Dr. Juliet WilkesHematocrit (Bld) [Volume fraction]40.5 %Critically low42.0-54.0 The Wayne HospitalComment on above:Performed By: #### CBC #### [facility] [address] [address] [address] Juliet WilkesHemoglobin (Bld) [Mass/Vol]13.7 g/dLCritically low14.0-18.0[facility] MemorialComment on above:Performed By: #### CBC #### [facility] [address] [place] [address] Dr. Juliet Cervantes #0.02 10e3/ulNormal0.00-0.03The Wayne HospitalComment on above:Performed By: #### CBC #### [facility] [address] [place] [address] Dr. Juliet Cervantes %0.3 %Normal0.0-0.5The Wayne HospitalComment on above: Performed By: #### CBC #### [facility] [address] [place] [address] [address] Juliet Arambula #1.9 103/ulNormal1.2-3.8The Wayne HospitalComment on above:Performed By: #### CBC #### [facility] [address] [place] [address] Dr. Juliet Westhocytes/100 WBC (Bld)27.7 %Xtkzuj12.5-60.0The [facility] HospitalComment on above:Performed By: #### CBC #### [facility] [address] [place] [address] Dr. Juliet Melendez DIFF REQNONormalThe Wayne HospitalComment on above: Performed By: #### CBC #### [facility] [address] [place] [address] Dr. Juliet Yanes (RBC) [Entitic mass]33.3 maPumosx19.9-34.0The Wayne HospitalComment on above:Performed By: #### CBC #### [facility] [address] [place] [address] Dr. Juliet Valderrama (RBC) [Mass/Vol]33.8 g/nRIqbadk22.9-35.2The [facility] HospitalComment on above:Performed By: #### CBC #### [facility] [address] [place] [address] Dr. Juliet Penaloza (RBC) [Entitic vol]98.3 fLCritically high80.0-94.0The Wayne HospitalComment on above:Performed By: #### CBC #### [facility] [address] [place] [address] Dr. Yilan ChangMONO #0.7 103/ulNormal0.3-0.8The [facility] HospitalComment on above:Performed By: #### CBC #### [facility] [address] [place] [address] Dr. Juliet Maciasocytes/100 WBC (Bld)9.9 %Normal1.7-12.0[facility] Comment on above:Performed By: #### CBC #### [facility] [address] [place] [address] Dr. Juliet Del Angel #3.8 103/ulNormal1.4-6.5The [facility] HospitalComment on above:Performed By: #### CBC #### [facility] [address] [place] [address] Dr. Juliet Leoneutrophils/100 WBC (Bld)56.0 %Ponhoq16.0-75.0The [facility] HospitalComment on above:Performed By: #### CBC #### [facility] [address] [place] [address] Dr. Juliet WilkesPlatelet mean volume (Bld) [Entitic vol]9.0 fLCritically low 9.5-13.5The Wayne HospitalComment on above:Performed By: #### CBC #### [facility] [address] [place] [address] Dr. Juliet WilkesPLT201 103/pyOmkaza256-394Osa Wayne HospitalComment on above: Performed By: #### CBC #### [facility] [address] [place] [address] Dr. Juliet WilkesRBC4.12 106/ulCritically low4.70-6.10The [facility] HospitalComment on above:Performed By: #### CBC #### [facility] [address] [place] [address] Dr. Juliet WilkesWBC6.7 103/ulNormal4.0-11.0The [facility] HospitalComment on above: Performed By: #### CBC #### [facility] [address] [place] [address] Dr. Juliet WilkesGLYCOHEMOGLOBIN A1Con 78-56-4507ZFC RECOMMENDATIONSEE BELOWNormde The Wayne HospitalComment on above:Result Comment: ADA RECOMMENDED LIMIT 4.0 - 6.0 ADA THERAPEUTIC TARGET < 7.0 ACTION SUGGESTED > 7.0Performed By: #### A1C #### [facility] [address] [place] [address] Dr. Juliet WilkesGlucose [Mass/Vol]108 mg/dLNoCommunity Regional Medical CenterComment on above:Performed By: #### A1C #### [facility] [address] [place] [address] Dr. Juliet WilkesHbA1c (Bld) [Mass fraction]5.4 %Normal4.5-6.2The Wayne HospitalComment on above:Performed By: #### A1C #### [facility] [address] [place] [address] Dr. Juliet WilkesLIPID PROFILEon 02-15-1319NTWU-HDL RATIO NORMSEE BELOWMain Campus Medical CenterComment on above:Result Comment: 3.3 - 4.4 LOW RISK 4.4 - 7.1 AVERAGE RISK 7.1 - 11.0 MODERATE RISK >11.0 HIGH RISKPerformed By: #### LIPID, CMP #### [facility] [address] [place] [address] Dr. Juliet Nguyenesterol [Mass/Vol]154 mg/dLNormal<=200[facility] Comment on above:Performed By: #### LIPID, CMP #### [facility] [address] [place] [address] Dr. Juliet Nguyenesterol in HDL [Mass/Vol]29 mg/dLCritically uxq53-55Qgk [facility] HospitalComment on above:Performed By: #### LIPID, CMP #### [facility] [address] [place] [address] Dr. Juliet Nguyenesterol in LDL [Mass/Vol]64.2 mg/dLNoCommunity Regional Medical CenterComment on above:Performed By: #### LIPID, CMP #### [facility] [address] [place] [address] Dr. Yilan ChangCholesterol.total/Cholesterol in HDL [Mass ratio]5.3 {ratio} NormalThe Wayne HospitalComment on above:Performed By: #### LIPID, CMP #### [facility] [address] [place] [address] Dr. Juliet Kenney NORMAL> or = 60 mg/dl - LOW CARDIOVASCULAR RISK <40 mg/dl - HIGH CARDIOVASCULAR RISKMain Campus Medical CenterComment on above:Performed By: #### LIPID, CMP #### [facility] [address] [place] [address] Dr. Juliet WilkesLDL CALC NORMALSEE BELOWMain Campus Medical CenterComment on above:Result Comment: <100 mg/dl OPTIMAL 100 - 129 mg/dl NEAR OR ABOVE OPTIMAL 130 - 159 mg/dl BORDERLINE HIGH 160 - 189 mg/dl HIGH >190 mg/dl VERY HIGH Performed By: #### LIPID, CMP #### [facility] [address] [place] [address] Dr. Juliet WilkesTriglyceride [Mass/Vol]304 mg/dLCritically high<=150The [facility] HospitalCompaul [facility] on above:Performed By: #### LIPID, CMP #### [facility] [address] [place] [address] Dr. Juliet WilkesVLDL CALC60.8 mg/dLNoCommunity Regional Medical CenterCompaul oliver memorial hospital on above: Performed By: #### LIPID, CMP #### [facility] [address] [place] [address] Dr. Juliet WilkesPROF 14(COMP METB)on 64-05-5423Dcwvhaa [Mass/Vol]3.7 g/dLNormal 3.4-5.0[facility] MemorialComment on above:Performed By: #### LIPID, CMP #### [facility] [address] [place] [address] Dr. Juliet WilkesAlbumin/Globulin [Mass ratio]1.1 {ratio}NormalThe Wayne HospitalComment on above:Performed By: #### LIPID, CMP #### [facility] [address] [place] [address] Dr. Juliet Caro [Catalytic activity/Vol]87 U/SPnjhxy07-913Rqj [facility] HospitalComment on above:Performed By: #### LIPID, CMP #### [facility] [address] [address] [address] Juliet Benavidez [Catalytic activity/Vol]52 U/TJisnwa41-31Sgi [facility] HospitalComment on above:Performed By: #### LIPID, CMP #### [facility] [address] [address] [address] Juliet Buschon gap [Moles/Vol]11.5 mmol/LNormalKettering Health Greene Memorial Comment on above:Performed By: #### LIPID, CMP #### [facility] [address] [address] [address] Juliet Holloway [Catalytic activity/Vol]27 U/MYmjjoh81-42Ptl Wayne HospitalComment on above:Performed By: #### LIPID, CMP #### [facility] [address] [place] [address] Dr. Juliet WilkesBilirubin [Mass/Vol]0.4 mg/dLNormal0.2-1.0[facility] Comment on above:Performed By: #### LIPID, CMP #### [facility] [address] [place] [address] Dr. Juliet WilkesCalcium [Mass/Vol]8.7 mg/dLNormal8.5-10.1[facility] Comment on above:Performed By: #### LIPID, CMP #### [facility] [address] [place] [address] Dr. Juliet WilkesChloride [Moles/Vol]106 mmol/AZgllmf65-091KeiKettering Health Greene Memorial Comment on above:Performed By: #### LIPID, CMP #### [facility] [address] [place] [address] Dr. Juliet WilkesCO2 [Moles/Vol]28.2 mmol/GLowqyr17.0-32.0[facility] Comment on above:Performed By: #### LIPID, CMP #### [facility] [address] [place] [address] Dr. Juliet WilkesCreatinine [Mass/Vol]1.21 mg/dLNormal0.70-1.30[facility] MemorialComment on above:Performed By: #### LIPID, CMP #### [facility] [address] [place] [address] Dr. Juliet HuddlestonGFR-AF AUSTRALIAN>60Normal>=60The Wayne HospitalComment on above:Performed By: #### LIPID, CMP #### [facility] [address] [place] [address] Dr. Juliet Mcclure-NON AF AUSTRALIAN=60Normal>=60[facility] MemorialComment on above:Performed By: #### LIPID, CMP #### [facility] [address] [place] [address] Dr. Juliet WilkesGlobulin (S) [Mass/Vol]3.4 g/dLNormalThe Wayne HospitalComment on above:Performed By: #### LIPID, CMP #### [facility] [address] [place] [address] Dr. Juliet WilkesGlucose [Mass/Vol]100 mg/gYWyyqjo71-206LfqKettering Health Greene Memorial Comment on above:Performed By: #### LIPID, CMP #### [facility] [address] [place] [address] Dr. Juliet WilkesPotassium [Moles/Vol]4.7 mmol/LNormal3.5-5.1[facility] Comment on above:Performed By: #### LIPID, CMP #### [facility] [address] [place] [address] Dr. Juliet WilkesProtein [Mass/Vol]7.1 g/dLNormal6.4-8.2[facility] Comment on above:Performed By: #### LIPID, CMP #### [facility] [address] [place] [address] Dr. Juliet WilkesSodium [Moles/Vol]141 mmol/EGruvpm961-959ZysKettering Health Greene Memorial Comment on above:Performed By: #### LIPID, CMP #### [facility] [address] [place] [address] Dr. Juliet WilkesUrea nitrogen [Mass/Vol]23.0 mg/dLCritically high7.0-18.0[facility] MemorialComment on above:Performed By: #### LIPID, CMP #### [facility] [address] [place], [place] [address] Dr. Juliet Yee nitrogen/Creatinine [Mass ratio]19.0 mg/mgNormThe Surgical Hospital at SouthwoodsComment on above:Performed By: #### LIPID, CMP #### [facility] [address] [place], [place] [address] Dr. Juliet WilkesVC CONSULT FOLLOWUPon 11-74-7088UH CONSULT FOLLOWUPPatient: CARLOS CARABALLO Exam Date: 04/08/2022 : 1955 Gender:M Ordering : DR RACHEAL STEELE M.D. Admission #: [id number] Family : Order #: [id number] CLICK HERE [...] physical exam and consultation Dictated by: Racheal tSeele MD on 04/08/2022 at 11:28 Approved by: Racheal Steele MD on 04/08/2022 at 11:30[facility] CenterVC EXT VENOUS RT LIMITEDon 17-20-9369ZF EXT VENOUS RT LIMITEDPatient: CARLOS CARABALLO Exam Date: 04/08/2022 : 1955 Gender:M Ordering : DR RACHEAL STEELE M.D. Admission #: [id number] Family : Order #: [id number] CLICK HERE TO VIEW EXAM RADIOLOGY REPORT [...] by: Racheal Steele MD on 04/08/2022 at 11:31[facility] CenterVC INJ FOAM SCLERO W US MLTIon 43-97-8814HD INJ FOAM SCLERO W US MLTIPatient: CARLOS CARABALLO Exam Date: 04/03/2022 : 1955 Gender:M Ordering : DR RACHEAL STEELE M.D. Admission #: [id number] Family : DR NATHALY Ojeda Order #: [id number] CLICK HERE TO VIEW EXAM RADIOLOGY REPORT [...] hours, av (more content not included)...Normal The [facility] HospitalVC CONSULT FOLLOWUPon 46-71-7952SC CONSULT FOLLOWUPPatient: ILYA, CARLOS Marianna Exam Date: 03/25/2022 : 1955 Gender:M Ordering : DR RACHEAL STEELE M.D. Admission #: [id number] Family : Order #: [id number] CLICK HERE TO VIEW EXAM RADIOLOGY REPORT [...] by: Elin Mccartney M.D. on 03/25/2022 at 08:41[facility] CenterVC EXT VENOUS RT LIMITEDon 91-01-8231YT EXT VENOUS RT LIMITEDPatient: CARLOS CARABALLO Exam Date: 03/25/2022 : 1955 Gender:M Ordering : DR RACHEAL STEELE M.D. Admission #: [id number] Family : Order #: [id number] CLICK HERE TO VIEW EXAM RADIOLOGY REPORT [...] by: Elin Mccartney M.D. on 03/25/2022 at 08:39[facility] CenterVC ENDOVENOUS ABL 1ST V RTon 15-28-3327GL ENDOVENOUS ABL 1ST V RT Patient: CARLOS CARABALLO Exam Date: 03/19/2022 : 1955 Gender:M Ordering : DR RACHEAL STEELE M.D. Admission #: [id number] Family : Order #: [id number] CLICK HERE TO VIEW EXAM RADIOLOGY REPORT [...] by: Racheal Steele MD on 03/19/2022 at 08:58[facility] CenterVC CONSULT FOLLOWUPon 78-47-3840GV CONSULT FOLLOWUPPatient: ILYA, CARLOS Marianna Exam Date: 02/18/2022 : 1955 Gender:M Ordering : DR RACHEAL STEELE M.D. Admission #: [id number] Family : Order #: [id number] CLICK HERE TO VIEW EXAM RADIOLOGY REPORT [...] by: Racheal Steele MD on 02/18/2022 at 09:45[facility] CenterVC EXT VENOUS LT LIMITEDon 25-68-2652AG EXT VENOUS LT LIMITEDPatient: ILYA CARLOS Marianna Exam Date: 02/18/2022 : 1955 Gender:M Ordering : DR RACHEAL STEELE M.D. Admission #: [id number] Family : Order #: [id number] CLICK HERE TO VIEW EXAM RADIOLOGY REPORT [...] varicose veins remain off of SSV and kiln maintenance mid posterior calf. *Exam performed in accordance with [facility] practice guidelines- Peripheral venous ultrasound, October 07, 2009. CONCLUSION: Post ablation occlusion of left leg varicose veins Dictated by: Racheal Steele MD on 02/18/2022 at 09:32 Approved by: Racheal Steele MD on 02/18/2022 at 09:36[facility] CenterVC INJ FOAM SCLERO W US MLTIon 75-85-0065FN INJ FOAM SCLERO W US MLTIPatient: CARLOS CARABALLO Exam Date: 02/13/2022 : 1955 Gender:M Ordering : DR RACHEAL STEELE M.D. Admission #: [id number] Family : Order #: [id number] CLICK HERE TO VIEW EXAM RADIOLOGY REPORT [...] by: Elin Mccartney M.D. on 02/13/2022 at 10:15NCherrington HospitalVC CONSULT FOLLOWUPon 43-03-6902BZ CONSULT FOLLOWUPPatient: CARLOS CARABALLO Exam Date: 02/06/2022 : 1955 Gender:M Ordering : DR RACHEAL STEELE M.D. Admission #: [id number] Family : Order #: [id number] CLICK HERE TO VIEW EXAM RADIOLOGY REPORT [...] by: Elin Mccartney M.D. on 02/06/2022 at 09:53[facility] CenterVC EXT VENOUS LT LIMITEDon 61-49-3585TH EXT VENOUS LT LIMITEDPatient: CARLOS CARABALLO Exam Date: 02/06/2022 : 1955 Gender:M Ordering : DR RACHEAL STEELE M.D. Admission #: [id number] Family : Order #: [id number] CLICK HERE TO VIEW EXAM RADIOLOGY REPORT [...] by: Elin Mccartney M.D. on 02/06/2022 at 09:49[facility] CenterGLYCOHEMOGLOBIN A1Con 61-14-7853CJQ RECOMMENDATIONSEE [facility] CenterComment on above:Result Comment: ADA RECOMMENDED LIMIT 4.0 - 6.0 ADA THERAPEUTIC TARGET < 7.0 ACTION SUGGESTED > 7.0Performed By: #### A1C #### [facility] [address] [address] [address] Juliet WilkesGlucose [Mass/Vol]108 mg/dLNoCommunity Regional Medical CenterComment on above:Performed By: #### A1C #### [facility] [address] [address] [address] Juliet WilkesHbA1c (Bld) [Mass fraction]5.4 %Normal4.5-6.2The Wayne HospitalComment on above:Performed By: #### A1C #### [facility] [address] [address] [address] Juliet WilkesPROF 14(COMP METB)on 43-82-4062Wrjvcsn [Mass/Vol]4.0 g/dLNormal 3.4-5.0The [facility] HospitalComment on above:Performed By: #### CMP ####[facility] [address] [place], [place] [address]Dr.Juliet Wilkes Albumin/Globulin [Mass ratio]1.2 {ratio}NormalThe Wayne HospitalComment on above:Performed By: #### CMP ####[facility] [address] [place], [place] [address]Dr.Juliet WilkesALP [Catalytic activity/Vol]89 U/LNormal 46-116The [facility] HospitalComment on above:Performed By: #### CMP ####[facility] [address] [place], [place] [address]Dr.Juliet WilkesALT [Catalytic activity/Vol]81 U/LCritically ahof71-09Emo [facility] HospitalComment on above:Performed By: #### CMP ####[facility] X[address] [place], [place] [address]Dr.Juliet WilkesAnion gap [Moles/Vol]13.6 mmol/LNormal The [facility] HospitalComment on above:Performed By: #### CMP ####[facility] [address] [place], [place] [address]Dr.Juliet ChangAST [Catalytic activity/Vol]32 U/EPvehvo41-45Gwq [facility] HospitalComment on above: Performed By: #### CMP ####[facility] [address] [place], [place] [address]Dr.Juliet WilkesBilirubin [Mass/Vol]0.5 mg/dLNormal 0.2-1.0The [facility] HospitalComment on above:Performed By: #### CMP ####[facility] [address] [place], [place] [address]Dr.Juliet Wilkes Calcium [Mass/Vol]8.9 mg/dLNormal8.5-10.1The [facility] HospitalComment on above: Performed By: #### CMP ####[facility] [address] [place], [place] [address]Dr.Juliet ChangChloride [Moles/Vol]106 mmol/LNormal 98-107The [facility] HospitalComment on above:Performed By: #### CMP ####[facility] [address] [place], [place] [address]Dr.Yilan ChangCO2 [Moles/Vol]27.1 mmol/KGvmkjq39.0-32.0The [facility] HospitalComment on above: Performed By: #### CMP ####[facility] [address] [place], [place] [address]Dr.Yilan ChangCreatinine [Mass/Vol]1.46 mg/dL Critically high0.70-1.30The [facility] HospitalComment on above:Performed By: #### CMP ####[facility] [address] [place], [place] [address]Dr.Yilan ChangEGFR-AF QLMXTINT61 mL/min/1.14o4Cfldqketvz low>=60The [facility] HospitalComment on above:Performed By: #### CMP ####[facility] [address] [place], [place] [address]Dr.Yilan ChangEGFR-NON AF YBMCHKAE75 mL/min/1.45g9Vnyrxqtqgc low>=60The [facility] HospitalComment on above: Performed By: #### CMP ####[facility] [address] [place], [place] [address]Dr.Yilan ChangGlobulin (S) [Mass/Vol]3.4 g/dLNormalThe [facility] HospitalComment on above:Performed By: #### CMP ####[facility] [address] [place], [place] [address]Dr.Yilan ChangGlucose [Mass/Vol]93 mg/uOWvekeh20-667Csv [facility] HospitalComment on above:Performed By: #### CMP ####[facility] [address] [place], [place] [address]Dr.Yilan ChangPotassium [Moles/Vol]4.7 mmol/LNormal3.5-5.1The [facility] HospitalComment on above:Performed By: #### CMP ####[facility] [address] [place], [place] [address]Dr.Yilan ChangProtein [Mass/Vol]7.4 g/dLNormal6.4-8.2The [facility] HospitalComment on above:Performed By: #### CMP ####[facility] [address] [address]Dr.Yilan ChangSodium [Moles/Vol]142 mmol/MRuieet784-741Mbn [facility] HospitalComment on above:Performed By: #### CMP ####[facility] [address] [address]Dr.Yilan ChangUrea nitrogen [Mass/Vol]25.0 mg/dLCritically high7.0-18.0The [facility] HospitalComment on above:Performed By: #### CMP ####[facility] [address] [address]Dr.Yilan ChangUrea nitrogen/Creatinine [Mass ratio] 17.1 mg/mgNormalThe Wayne HospitalComment on above:Performed By: #### CMP ####[facility] [address] [address]Dr. Juliet ChangVC ENDOVENOUS ABL 1ST V LTon 26-92-2210TX ENDOVENOUS ABL 1ST V LT Patient: CARLOS CARABALLO Exam Date: 01/30/2022 : 1955 Gender:M Ordering : DR RACHEAL STEELE M.D. Admission #: [id number] Family : Order #: [id number] CLICK HERE TO VIEW EXAM RADIOLOGY REPORT [...] by: Elin Mccartney M.D. on 01/30/2022 at 12:00[facility] CenterPOINT OF CARE GLUCOSEon 46-78-2992Dschswp [Mass/Vol]84 mg/zATrvwgi19-214 The [facility] HospitalComment on above:Performed By: #### POCGLUC #### [facility] [address] [address] [address] Juliet WilkesVC COMP CONSULTATIONon [id number] COMP CONSULTATIONPatient: CARLOS CARABALLORusty Exam Date: 01/21/2022 : 1955 Gender:M Ordering : DR RACHEAL STEELE M.D. Admission #: [id number] Family : Order #: [id number] CLICK HERE TO VIEW EXAM RADIOLOGY REPORT [...] for years. The patient is retired from [employer] after working 42 years. The patient denies [...] any additional information, and this was performed [facility]. See separate history and physical for medication [...] incompetent branch saphenous tributary/varicose veins. Bilateral incompetent kiln maintenance veins. PHYSICAL EXAM: The right leg demonstrates [...] pulses were present bilaterally. IMPRESSION: 1. Bilateral qkir-rs-vtmlwwsd great saphenous vein and mild right small [...] by: Racheal Steele MD on 01/21/2022 at 11:46[facility] CenterVC VENOUS REFLUX MARIE Ton 07-08-3252LJ VENOUS REFLUX MARIE LMTPatient: CARLOS CARABALLO Exam Date: 01/21/2022 : 1955 Gender:M Ordering : DR RACHEAL STEELE M.D. Admission #: [id number] Family : DR NATHALY BOONE . Order #: [id number] CLICK HERE TO VIEW EXAM RADIOLOGY REPORT [...] Compressibility: Normal. Flow: Mild deep venous reflux. Rotary Adjuster: Post/prox calf 5.9mm, 0.7s reflux. Prox/med [...] by: Racheal Steele MD on 01/21/2022 at 10:40[facility] POINT OF CARE GLUCOSEon 91-36-8202Apoetgm [Mass/Vol]87 mg/oONrsjyu74-299YaoKettering Health Greene MemorialComment on above:Performed By: #### POCGLUC ####[facility] [address] [place], [place] [address]Jf. Juliet Wilkes SURGICAL PATHOLOGYon [id number] PATHOLOGYSpecimen #: [id number] Submitting Physician: JULIET WILKES M.D. FINAL DIAGNOSIS [place], [place]; [id number] (12/07/2020) Liver, mass , biopsy (A1, A2, [...] do not hesitate to contact us at [phone] with questions or if additional follow up information becomes available. This case was reviewed in conjunction with the GI pathology fellow, Apoorva Diallo MD. The following stains were performed at the [facility] in order to further characterize this case: [...] in-situ hybridization tests have been determined by [facility]'s Frankie JRusty [facility] [place] ([facility]) in a manner consistent with CLIA requirements. One or more of these tests have not been cleared or approved by the FDA. [facility] is regulated under CLIA as qualified to perform high-complexity testing. These tests are used for clinical purposes. They should not be regarded as investigational or for research. Nicolasa Cheema M.D. (Electronic Signature) SPECIMEN SUBMITTED A: 12 slides [id number] CLINICAL DATA Mass Date of Report: 03/27/2021 Date of Procedure: 03/16/2021 Date of Receipt: 03/15/2021 Submitted by: JULIET WILKES M.D. Location: Diagnostic interpretation performed at [place] [address]. CLIA Number: [id number] [facility] Comment on above:Performed By: #### S #### See report for performing lab information. Vital Signs Date TimeVital SignValuePerforming EhgalosoiDkdplces37-69-7439 08:53-0400Body cmTulio Ruggiero MD Work Phone: [facility] CenterKsekyfbffk96-53-5486 08:53-0400Body mass index (BMI) [Ratio]37.62 kg/m2Tulio Ruggiero MD Work Phone: [facility] CenterWnhdxpkyru23-72-6072 08:53-0400Body temperature 97.11 [degF]Tulio Ruggiero MD Work Phone: noLee[facility] Summit HospitalOlmfechzht17-83-5576 08:53-0400Body njtmre378.9 kgTulio Ruggiero MD Work Phone: noLee's Summit HospitalFeyxvozzsn54-96-7450 08:53-0400Diastolic blood xfylubgg75 mm[Hg]Tulio Ruggiero MD Work Phone: [facility] CenterMnqrpchhbh38-28-8198 08:53-0400Heart rate84 /min Tulio Ruggiero MD Work Phone: [facility] CenterCiowonaevy23-73-1428 08:53-0400Respiratory rate20 /minTulio Ruggiero MD Work Phone: [facility] CenterXtmqfcxaah14-77-8937 08:53-0845GvN1% (BldA) [Mass fraction]98 %Tulio Ruggiero MD Work Phone: [facility] CenterDubmqjoucg89-56-8340 08:53-0400Systolic blood tcxwryjq877 mm[Hg]Tulio Ruggiero MD Work Phone: [facility] CenterRyavhijshe67-16-2477 13:22-0400Body mxqsca987 cm Tulio Ruggiero MD Work Phone: [facility] CenterEhlcqeksvy58-52-6160 13:22-0400Body mass index (BMI) [Ratio]38.26 kg/m2Tulio Ruggiero MD Work Phone: [facility] CenterAginpunyzs08-03-6511 13:22-0400Body temperature 97.11 [degF]Tuloi Ruggiero MD Work Phone: [facility] CenterFleyfdtkym08-43-0755 13:22-0400Body jwfuyq825.17 kgTulio Ruggiero MD Work Phone: [facility] CenterEzzdyztpxs00-88-3938 13:22-0400Diastolic blood olubqwvl94 mm[Hg]Tulio Ruggiero MD Work Phone: [facility] CenterCpuqziavui27-00-2525 13:22-0400Heart rate97 /min Tulio Ruggiero MD Work Phone: [facility] CenterDxqqtuutfi17-22-4014 13:22-0400Respiratory rate18 /minTulio Ruggiero MD Work Phone: [facility] CenterPiamyynlsb40-17-0078 13:22-6384WhE3% (BldA) [Mass fraction]99 %Tulio Ruggiero MD Work Phone: [facility] CenterJqdylaqprt00-96-2135 13:22-0400Systolic blood jwzelnll813 mm[Hg]Tulio Ruggiero MD Work Phone: [facility] CenterAakfxdarct52-69-6791 09:11-0500Body mass index (BMI) [Ratio]37.75 kg/m2Tulio Ruggiero MD Work Phone: [facility] CenterRyakdpezyz45-26-6282 09:11-0500Body temperature 98.4 [degF]Tulio Ruggiero MD Work Phone: [facility] CenterKpbgphihad73-09-1382 09:11-0500Body .36 kgTulio Ruggiero MD Work Phone: [facility] CenterKrtidlpzrd73-48-4657 09:11-0500Diastolic blood wdfbvppy97 mm[Hg]Tulio Ruggiero MD Work Phone: [facility] CenterBitgmfdfwr41-30-1661 09:11-0500Heart rate96 /min Tulio Ruggiero MD Work Phone: [facility] CenterGcoutzwvjl33-86-2326 09:11-0500Respiratory rate18 /minTulio Ruggiero MD Work Phone: [facility] CenterJxnvcoyisb11-91-7941 09:11-0152FfA0% (BldA) [Mass fraction]96 %Tulio Ruggiero MD Work Phone: [facility] CenterAtcagnqroo73-37-0322 09:11-0500Systolic blood ibbssvgj753 mm[Hg]Tulio Ruggiero MD Work Phone: [facility] CenterGwttgdluav56-86-6651 08:56-0500Blood Pressure LocationJEFRANKIE ABREU [facility]11-14-2024 08:56-0500Body czgmyhivkqd31.6 [degF]LIZ ABREU [facility]11-14-2024 08:56-0500Diastolic blood usepcfuz48 mm[Hg]LIZ ABREU [facility]11-14-2024 08:56-0500Heart rate79 /minJENNIFER DAVID [facility]11-14-2024 08:56-0500Respiratory rate18 /minJENNIFER DAVID [facility]11-14-2024 08:56-0500Systolic blood gogunwep458 mm[Hg]LIZ DAVID [facility]04-23-2024 08:38-0400Blood Pressure LocationJENNIFER DAVID [facility]04-23-2024 08:38-0400Diastolic blood xotxktov38 mm[Hg]LIZ DAVID [facility]04-23-2024 08:38-0400Heart rate80 /minJENNIFER DAVID [facility]04-23-2024 08:38-0400Respiratory rate16 /minJENNIFER DAVID [facility]04-23-2024 08:38-0400Systolic blood fdhhksix363 mm[Hg]LIZ DAVID [facility]11-21-2023 09:59-0500Blood Pressure LocationJENNIFER DAVID [facility]11-21-2023 09:59-0500Diastolic blood dddemejp44 mm[Hg]LIZ DAVID [facility]11-21-2023 09:59-0500Heart rate70 /minJENNIFER DAVID [facility]11-21-2023 09:59-0500Respiratory rate16 /minJENNIFER DAVID [facility]11-21-2023 09:59-0500Systolic blood nxpwleok166 mm[Hg]LIZ DAVID [facility]11-10-2022 09:45-0500Body .96 cmThomas Olexa Other [employer] Other 11-10-2022 09:45-0500Body mass index (BMI) [Ratio] 40.57 kg/a9Cmfkww Olexa Other [employer] Other 11-10-2022 09:45-0500Body jfhbyj691.34 kgThomas Olexa Other [employer] Other 01-25-2022 14:15-0500Body krovxf711.96 cmThomas Olexa Other [employer] Other 01-25-2022 14:15-0500Body mass index (BMI) [Ratio] 40.64 kg/e0Tyrjfb Olexa Other [employer] Other 01-25-2022 14:15-0500Body lwpoyf711.61 kgThomas Olexa Other [employer] Other 09-30-2021 10:30-0400Body aypjvi797.96 cmDavid Hykes Other [employer] Other 09-30-2021 10:30-0400Body mass index (BMI) [Ratio] 41.75 kg/j0Qrjomhortensia Daniels Other [employer] Other 09-30-2021 10:30-0400Body zyczqm692.51 kgDaviezequiel Daniels Other [place] Other 09-30-2021 10:30-0400Diastolic blood tabeclem80 mm[Hg] Racheal Daniels Other [place] Other 09-30-2021 10:30-0400Systolic blood oxvqoahj001 mm[Hg] Racheal Daniels Other [facility] [place] Other Encounters Encounter DateEncounter TypeCare ProviderFacilityStart: 87-07-5624yuuznisths Vika X OrzechFacility:[place]Start: 03-06-2025 End: 83-36-3446DwzrixYiom Naderer MD Work Phone: [facility] FMComment on above: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)Start: 01-31-2025 End: 06-00-1880Uyhewckvv Result EncounterGeneric External Data ProviderNOMS External Department UnsolicitedStart: 01-31-2025 End: 15-09-1721Rehisrart Result EncounterGeneric External Data ProviderNOMS External Department UnsolicitedStart: 01-31-2025 End: 45-92-2985eqltzahpklNQIAM J MATHEWSMercy Jacob HospitalStart: 01-31-2025 End: 39-57-8912Clixpffyvg hospital visit by physicianMwh [facility] RadiologyComment on above:Aftercare following left knee joint replacement surgeryStart: 01-13-2025 End: 42-79-9503Vmgiwnugx Result EncounterTulio Ruggiero MD Work Phone: noms External Department UnsolicitedStart: 01-13-2025 End: 26-58-8648Pbvhdapqn Result EncounterTulio Ruggiero MD Work Phone: noms External Department UnsolicitedStart: 01-12-2025 End: 38-18-1424Auadrx flowsAracely Ruggiero MD Work Phone: noms CWM FMStart: 01-12-2025 End: 00-26-7642Kdlsms flowsAracely Ruggiero MD Work Phone: noms CWM FMStart: 01-12-2025 End: 65-80-1563Mqebmg outpatient visit 25 minutesTulio Ruggiero MD Work [...] index (BMI) of37.0 to 37.9 in adult ([facility]); Type 2 diabetes mellitus with diabetic chronic kidney disease (HCC); Chronic kidney disease, stage 3a ([facility])Start: 01-12-2025 End: 35-71-2432oqabhbtvfkFHRQ NADERERNot AvailableStart: 12-31-2024 End: 79-33-5577Ryyhgstml Result EncounterGeneric External Data ProviderNOMS External Department UnsolicitedStart: 12-31-2024 End: 90-78-0371Sosibuvsi Result EncounterGeneric External Data ProviderNOMS External Department UnsolicitedStart: 12-06-2024 End: 68-38-3465TulxcjYbnb Naderer MD Work Phone: noms CWM FMComment on above:Polyneuropathy due to type 2 diabetes mellitus ([facility])Start: 11-08-2024 End: 40-91-3510FucfcoFbvy Naderer MD Work Phone: NOMS CWM FMComment on above:Male hypogonadismStart: 10-19-2024 End: 19-09-7581Fnwxfr Radha Ruggiero MD Work Phone: noms CWM FMComment on above:Annual physical exam (Primary Dx); Morbid obesity ([facility]); Polyneuropathy due to type 2 diabetes mellitus ([facility]); Type 2 diabetes mellitus with hyperglycemia, without long-term current use of insulin ([facility]); Arthritis, goutyStart: 10-19-2024 End: 51-75-8422Vxqjuld encounter procedureTulio Ruggiero MD Work Phone: [facility] Work Phone: Start: 10-13-2024 End: 59-14-4287Vynady flowsAracely Ruggiero MD Work Phone: noms CWM FMStart: 10-13-2024 End: 42-08-9313Nwwgcf Thomas Ruggiero MD Work Phone: noms CWM FMStart: 10-13-2024 End: 82-85-0453Gilzxr outpatient visit 15 minutesTulio Ruggiero MD Work Phone: noms CWM FMComment on above:Abscess of abdominal wall (Primary Dx)Start: 10-13-2024 End: 84-28-2186razfuwwprgZGBV NADERERNot AvailableStart: 10-04-2024 End: 75-97-1855Ujsrbumbg Result EncounterGeneric External Data ProviderNOMS External Department UnsolicitedStart: 10-04-2024 End: 96-20-7463Grnwkpnsr Result EncounterGeneric External Data ProviderNOMS External Department UnsolicitedStart: 09-06-2024 End: 33-48-2721Xgaokcxqb Result EncounterGeneric External Data ProviderNOMS External Department UnsolicitedStart: 09-06-2024 End: 68-41-3221Gplxxsnkx Result EncounterGeneric External Data ProviderNOMS External Department UnsolicitedStart: 08-24-2024 End: 02-20-8940Kvlgbmwpv Result EncounterGeneric External Data ProviderNOMS External Department UnsolicitedStart: 08-24-2024 End: 55-25-6485Geijybcrb Result EncounterGeneric External Data ProviderNOMS External Department UnsolicitedStart: 08-23-2024 End: 51-65-6329Dkdstbilm Result EncounterGeneric External Data ProviderNOMS External Department UnsolicitedStart: 08-23-2024 End: 64-68-2074Cuxbyifns Result EncounterGeneric External Data ProviderNOMS External Department UnsolicitedStart: 08-19-2024 End: 28-17-1226Ykjzsflmd Result EncounterGeneric External Data ProviderNOMS External Department UnsolicitedStart: 08-19-2024 End: 78-04-2983Petokqkfk Result EncounterGeneric External Data ProviderNOMS External Department UnsolicitedStart: 08-07-2024 End: 70-31-7155RficavIhrf Naderer MD Work Phone: noms [facility] FMComment on above:Morbid obesity (CMS/HCC); 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/[facility]); Type 2 diabetes mellitus with hyperglycemia, without long-term current use of insulin (CMS/HCC)Start: 08-05-2024 End: 09-70-8501Hrptstqxz Result EncounterGeneric External Data ProviderNOMS External Department UnsolicitedStart: 08-05-2024 End: 50-32-3761Rqrqvcfgm Result EncounterGeneric External Data ProviderNOMS External Department UnsolicitedStart: 07-28-2024 End: 27-71-6234Ghrrmx Radha Ruggiero MD Work Phone: noms [facility] FMComment on above:Type 2 diabetes mellitus with hyperglycemia, without long-term current use of insulin (CMS/HCC) (Primary Dx); Dyslipidemia (CMS/HCC); Class 2 severe obesity due to excess calories with serious comorbidity and body mass index (BMI) of37.0 to 37.9 in adult (CMS/HCC); Encounter for long-term current use of medication; Screening PSA (prostate specific antigen)Start: 07-26-2024 End: 36-44-6137pfmafllehlZxksaBlake Valencia DOFacility:[facility] Start: 07-23-2024 End: 84-40-2068fuwntzazsmOxvzv Jay Mathews DOFacility:[facility] Start: 07-20-2024 End: 69-75-3037Dyfnqgqsh Result EncounterGeneric External Data ProviderNOMS External Department UnsolicitedStart: 07-20-2024 End: 84-45-6285Cltgbigxh Result EncounterGeneric External Data ProviderNOMS External Department UnsolicitedStart: 07-15-2024 End: 53-89-8404Xukqvm flowsAracely Ruggiero MD Work Phone: noms CWM FMStart: 07-15-2024 End: 11-51-8096Ckszda Thomas Ruggiero MD Work Phone: noms [facility] FMStart: 07-15-2024 End: 77-34-2687Wwzkrik encounter procedureTulio Ruggiero MD Work Phone: [facility] Work Phone: Start: 07-15-2024 End: 34-98-4357Dufybotg preventive med est patient 65yrs& olderTulio Ruggiero MD Work Phone: noms [facility] FMComment on above:Annual physical exam (Primary Dx); Encounter for preoperative assessment; Type 2 diabetes mellitus with hyperglycemia, without long-term current use of insulin ([facility]); Arthritis, gouty; Polyneuropathy due to type 2 diabetes mellitus ([facility]); Class 2 severe obesity due to excess calories with serious comorbidity and body mass index (BMI) of37.0 to 37.9 in adult ([facility]); Dyslipidemia ([facility]/HCC)Start: 07-15-2024 End: 64-83-1479Ltdumgkjkktm Sal Ruggiero MD Work Phone: noms HealthcareStart: 07-15-2024 End: 20-07-1200lwpouudzzhXLEF NADERERNot AvailableStart: 06-28-2024 End: 54-18-0603Qsxhzamxw Result EncounterGeneric External Data ProviderNOMS External Department UnsolicitedStart: 06-28-2024 End: 94-73-2287Zuecbpfyn Result EncounterGeneric External Data ProviderNOMS External Department UnsolicitedStart: 06-23-2024 End: 57-85-0057Jdumyxnye Result EncounterGeneric External Data ProviderNOMS External Department UnsolicitedStart: 06-23-2024 End: 76-06-9808Pyhnykhak Result EncounterGeneric External Data ProviderNOMS External Department UnsolicitedStart: 05-27-2024 End: 51-45-0038hxiasxkiseSXVWSWCI E PERRYFacility:[place]Start: 05-27-2024 End: 86-84-6440Geanjxy encounter procedureJENNIFER E DAVID [facility] start: 05-18-2024 End: 40-12-8465Dyqlfyzip Result EncounterGeneric External Data ProviderNOMS External Department UnsolicitedStart: 05-18-2024 End: 01-35-9648Pwxfcolna Result EncounterGeneric External Data ProviderNOMS External Department UnsolicitedStart: 04-08-2024 End: 89-37-7531VkrwdxLsye Naderer MD Work Phone: noms CWM FMComment on above:Polyneuropathy due to type 2 diabetes mellitus ([facility])Start: 04-06-2024 End: 36-26-8104KrdzwiCxkm Naderer MD Work Phone: noms CWM FMComment on above:Male hypogonadismStart: 02-12-2024 End: 81-66-0351Xgnfasrug Result EncounterGeneric External Data ProviderNOMS External Department UnsolicitedStart: 02-12-2024 End: 38-08-2809Vjefpmofj Result EncounterGeneric External Data ProviderNOMS External Department UnsolicitedStart: 11-04-2023 End: 26-55-9829Gmnntqt encounter procedureJENNIFER E DAVID [facility]Second [facility] start: 10-09-2023 End: 97-33-5951Owhpwgack Result EncounterGeneric External Data ProviderNOMS External Department UnsolicitedStart: 10-09-2023 End: 35-75-5771Jwzxgsrhd Result EncounterGeneric External Data ProviderNOMS External Department UnsolicitedStart: 91-50-3728Fhnmbgg encounter procedureTulio Ruggiero MD Work Phone: NOMS HealthcareStart: 07-05-2023 End: 68-60-9374Ophabiwbd Result EncounterGeneric External Data ProviderNOMS External Department UnsolicitedStart: 07-05-2023 End: 68-92-7286Agdkrasvx Result EncounterGeneric External Data ProviderNOMS External Department UnsolicitedStart: 07-02-2023 End: 35-41-8401Hxomnhupi Result EncounterGeneric External Data ProviderNOMS External Department UnsolicitedStart: 07-02-2023 End: 29-72-8795Grguedzxc Result EncounterGeneric External Data ProviderNOMS External Department UnsolicitedStart: 06-03-2023 End: 57-94-6108Jyilpgc encounter procedureJENNIFER E DAVID [facility] start: 12-05-2022 End: 51-89-4943rcxdzdcvimLI KIM E KNIGHT .Facility:C4Fkiar: 12-03-2022 End: 66-23-3540ukbqkezxfyVL KIM E KNIGHT .Facility:R9Xbvoz: 11-29-2022 End: 28-78-4436rbrfshkesxOUDFEYTUEUYR LAKSHMIPATHY .Facility:K6Kkyfj: 11-12-2022 End: 07-77-4765lffktivpanOT KIM E KNIGHT .Facility:R1Wyohz: 11-05-2022 End: 12-77-0547kkvidxlbhgBM KIM E KNIGHT .Facility:V3Imila: 10-28-2022 End: 68-41-2954uydwshnxhwBT KIM E KNIGHT .Facility:Q4Ltupp: 10-21-2022 End: 72-52-3653mrypooltaqLL KIM E KNIGHT .Facility:Y1Faghk: 63-44-2427Dfjqigcqh for preprocedural cardiovascular examinationPETER D [facility] Hospitaltart: 79-75-4160Uafypmjsb for preprocedural laboratory examinationPETER D [facility] Hospitaltart: 82-45-9523dgopoxlgryRI KIM E KNIGHT . Facility:X5Oyfel: 10-10-2022 End: 85-00-4614ecrvgvgoifZN KIM E KNIGHT .Facility:C2Fmyvl: 10-10-2022 End: 48-75-2371Phfbnxlyl for preprocedural cardiovascular examinationDR FELISA BERRIOS .Facility:T9Tgujt: 09-24-2022 End: 51-60-8431dvdylnhhosRZ KIM E KNIGHT .Facility:M1Dnczg: 09-20-2022 End: 92-57-3264elbflcdzrcZG KIM E KNIGHT .Facility:W5Evpvm: 09-10-2022 End: 95-89-8622iyzdrskofhKY KIM E KNIGHT .Facility:E5Vvirj: 08-26-2022 End: 29-03-8364hxybnvnbsdYM KIM E KNIGHT .Facility:C1Mfwvi: 08-06-2022 End: 16-17-9019fqaxvisywtVBQXC D [facility]erc[facility]:V9Ufhff: 07-31-2022 End: 52-18-5182dvpduvkjslDVGXLSTBlanchard Valley Health Systemtart: 07-31-2022 End: 80-57-4691qjnkkrldhiEK NATHALY BOONE .Facility:E3Nojnt: 07-25-2022 End: 65-44-2747fbzauyczsfHOHX SOLIS .Facility:I0Rbhxe: 07-24-2022 End: 92-89-8041yahsxzspvpVSEKD D [facility] Centercility:O6Zwdol: 07-23-2022 End: 76-67-2669prrnocaturAY KIM E KNIGHT .Facility:D1Pniag: 07-22-2022 End: 29-90-7132kplbzewdwoXJ KIM E KNIGHT .Facility:L0Nhemh: 44-03-1010nqkpuuombn DR NATHALY BOONE .Facility:A0Flwar: 06-28-2022 End: 53-17-7614yhtxdluhkxHJ EHAB ELTAHAWYFacility:L4Kqhdx: 06-10-2022 End: 53-52-4324cpofjgwxnkZK FELISA BERRIOS .Facility:T2Cxhiu: 05-27-2022 End: 07-79-6938uxlmnaszmoYM RACHEAL Ayala WESTFacility:R6Shufx: 05-23-2022 End: 83-17-5834yawgfacutrIrsfdx Olexa Other [place] Other Start: 83-31-0074Mjnuvp outpatient visit 15 minutes Alejandra CainFPG [facility] OrthopedicsStart: 05-03-2022 End: 54-71-3329vqxgiegjbdRD FELISA BERRIOS .Facility:O7Igdgt: 04-23-2022 End: 04-31-9265lcmlsyjxxeYL NATHALY BOONE .Facility:K3Tjmzk: 04-08-2022 End: 73-88-3240jtoockwjnxRN RACHEAL Ayala WESTFacility:Z9Qjfpn: 04-04-2022 End: 07-06-4050qpoutiyqdgOXDQ ALEX .Facility:O2Qmvue: 04-03-2022 End: 84-19-0338nioagryuvbUZ RACHEAL Ayala WESTFacility:Z6Hedvz: 03-25-2022 End: 51-23-9326fyaqshazshGQ RACHEAL V WESTFacility:A6Bbccz: 03-19-2022 End: 29-97-2487qejdpxscvnEQ RACHEAL V WESTFacility:R3Ijwbi: 02-18-2022 End: 61-65-4638dqpqbmgnwuFE RACHEAL Ayala WESTFacility:M2Zbebd: 28-01-2542snnoichwmbSO FELISA BERRIOS .Facility:W2Kzvsj: 02-14-2022 End: 08-12-8665oqumbqauwxZW FELISA BERRIOS .Facility:D7Klgdc: 02-13-2022 End: 71-16-7849ucgfotfjxlZO FELISA BERRIOS .Facility:R4Prjuq: 02-06-2022 End: 91-00-8173desrgfymzoAG FELISA BERRIOS .Facility:U9Mvdxm: 02-05-2022 End: 52-77-7006gsntjbjfjmZJ FELISA BERRIOS .Facility:W9Zrqdv: 01-30-2022 End: 24-43-9258gtrpmdlgtwTQ FELISA Ann BERRIOS .Facility:V6Fmxbr: 01-22-2022 End: 08-26-1655xowxtgbajwYX FELISA Ann BERRIOS .Facility:Q3Rztxl: 01-21-2022 End: 06-28-7598gulheyhknuCV KIM Ann BERRIOS .Facility:X9Iulga: 01-08-2022 End: 65-93-4679ywdnidiqwyHY KIM Ann BERRIOS .Facility:N0Kicxu: 08-07-2021 End: 27-51-8098oznzfzgoydJwrelt Olexa Other [place] Other Start: 32-62-1273Ividrt outpatient visit 15 minutes Alejandra OlexaFPG [facility] BellevueStart: 72-37-9771Xxmjel outpatient visit 15 minutesDavid HykesFPG Gastroenterology Procedures DateProcedureProcedure DetailPerforming ClinicianStart: 03-14-7961AK KNEE LEFT (3 VIEWS)Generic External Data ProviderStart: 21-54-5245Avgiuwxsxf examination knee 3 viewsDaniele Valencia DO Work Phone: Start: 65-95-2477GKH MICROALB CREAT RATIO RANDOMMarmilan Ruggiero MD Work Phone: Start: 48-53-9409SIKB PSA, DIAGNOSTICGeneric External Data ProviderStart: 08-76-2011Hqgyxbpnrb examination knee 1/2 viewsGeneric External Data ProviderStart: 15-33-0584Nbkvltmpvd examination knee 1/2 views Generic External Data ProviderStart: 73-13-2820CGY BASIC METABOLIC PANELGeneric External Data ProviderStart: 66-48-2610Gfrwyfdzgy exam knee complete 4/more viewsGeneric External Data ProviderStart: 04-14-2488TYB CBC WITH AUTO DIFF Generic External Data ProviderStart: 62-09-4726Mlbmfiyl screenGeneric Provider Start: 85-55-3619YXD TYPE AND SCREENGeneric External Data ProviderStart: 72-92-0339Trqzkwco screenGeneric ProviderStart: 87-39-4516LNB TYPE AND SCREEN Generic External Data ProviderStart: 91-07-0086OG CHEST 2VGeneric External Data ProviderStart: 99-88-4460ZPS MISCELLANEOUS TESTGeneric External Data Provider Start: 71-70-8477GAK UA (CLEAN/CATCH) LOCKSTITCHER/MICRO IF IND.Generic External Data ProviderStart: 11-37-2370LPN CBC WITH AUTO DIFFGeneric External Data Provider Start: 07-20-2024 End: 09-95-6862QRL 12-LEADGeneric External Data ProviderStart: 29-72-2975ZITZ SCREENING CULTUREGeneric External Data ProviderStart: 18-09-7269ZP ECHO DOPPLER COMPLETEGeneric External Data ProviderStart: 70-21-6516Rjxjerisfe exam knee complete 4/more viewsGeneric External Data ProviderStart: 09-18-4496OY ABDOMEN 1VGeneric External Data ProviderStart: 75-98-0527PP FOOT LT MIN 3VGeneric External Data ProviderStart: 81-56-2069CJ FOOT LT MIN 3VGeneric External Data ProviderStart: 72-43-5952SW FOOT LT WO CONGeneric External Data ProviderStart: 10-37-3730ZK FOOT LT MIN 3VGeneric External Data ProviderStart: 01-06-3123GYR screeningDR RACHEAL Monk on above:Performed By: #### PSAD #### [facility] [address] [place] [address] Dr. Juliet Guidoart: 89-32-6579SX guided biopsyJENNIFER DAVID Comment on above:LIVER. NO SEDATION.Start: 07-15-2016 ColonoscopyTulio Ruggiero MD Work Phone: Arthroscopy of kneeJENNIFER DAVID Bilateral cataracts (disorder)LIZ DAVID H/O: vasectomyJENNIFER DAVID Titanium (substance)LIZ DAVID Comment on above:ToeTonsillectomyJENNIFER DAVID Plan of Treatment DateCare ActivityDetailAuthorStart: 44-46-0911Hnsscrbluka Syncytial Virus (RSV) or age 60 yrs+ (1 - 1-dose 75+ series)Respiratory Syncytial Virus (RSV) or age 60 yrs+ (1 - 1-dose 75+ series)[facility] HospitalStart: 19-28-5840Ulwmhqzik for malignant neoplasm of colonNOKS HealthcareStart: 07-90-0634Inyyh screening for proteinDiabetes: Urine Protein ScreeningNOKS HealthcareStart: 08-16-2025 End: 41-49-8762Kixskct encounter rgontasts27/03/2026 9:00 AM EST Office Visit [facility] [address] [place] [id number] Tulio Ruggiero MD [address] [place] [id number] NOMS [facility] FMStart: 88-50-4612Nbcwcwcof vaccinationInfluenza Vaccine (#1)[facility] HealthcareStart: 29-06-7304Fhfvbylo screeningDiabetes: Retinopathy Screening [facility] HealthcareStart: 30-25-6342Cufkzkecp vaccinationFlu vaccine (#1)[facility] HospitalStart: 94-31-0303Qzyhg screening for proteinDiabetes: Urine Protein ScreeningMid [facility] Mental Health CenterStart: 01-12-2025 End: 46-10-1283Ztqsbhharc A1c/Hemoglobin.total in BloodHemoglobin A1c Lab Routine Type 2 diabetes mellitus with hyperglycemia, without long-term current use of insulin (HCC) Expected: 01/12/2025 (Approximate), Expires: 01/12/2026[facility] HealthcareComment on above:Expected: 01/12/2025 (Approximate), Expires: 01/12/2026Start: 01-12-2025 End: 05-83-5243Mjmwjhvjztsu/Creatinine panel in random UrineMicroalbumin / creatinine, urine ratio Lab Routine Type 2 diabetes mellitus with hyperglycemia, without long-term current use of insulin (HCC) Expected: 01/12/2025 (Approximate), Expires: 01/12/2026[facility] Work Phone: Comment on above:Expected: 01/12/2025 (Approximate), Expires: 01/12/2026Start: 01-12-2025 End: 59-57-4605Qkneouu encounter procedureNO [facility] FMComment on above:Arrived Start: 10-19-2024 End: 04-97-1816Jjlbuxg antibody IgGRubeola antibody IgG Lab Routine Annual physical exam Expected: 10/19/2024 (Approximate), Expires: 10/19/2025[facility] Work Phone: Comment on above:Expected: 10/19/2024 (Approximate), Expires: 10/19/2025Start: 10-13-2024 End: 48-89-3054Njnrpsi encounter cqfsaxcol10/02/2025 1:15 PM EDT Office Visit N[facility] [address] [place] [phone] Tulio Ruggiero MD [address] [place] [address] [facility] FMComment on above:ArrivedStart: 98-02-6840LEJSI-19 Vaccine ( season)COVID-19 Vaccine ( season)[facility] HospitalStart: 08-05-2024 End: 06-07-5466Bavtf metabolic 1998 panel - Serum or PlasmaBasic metabolic panel Lab Routine Encounter for long-term current use of medication Expected: 2024 (Approximate), Expires: 08/05/2025NOKS HealthcareComment on above:Expected: 08/05/2024 (Approximate), Expires: 08/05/2025Start: 08-05-2024 End: 31-26-8411QCH W Auto Differential panel - BloodCBC and differential Lab Routine Encounter for long-term current use of medication Expected: 08/05/2024 (Approximate), Expires: 08/05/2025NOKS HealthcareComment on above:Expected: 08/05/2024 (Approximate), Expires: 08/05/2025Start: 08-05-2024 End: 31-79-0969Qvxlntekzr A1c/Hemoglobin.total in BloodHemoglobin A1c Lab Routine Type 2 diabetes mellitus with hyperglycemia, without long-term current use of insulin ([facility]) Expected: 08/05/2024 (Approximate), Expires: 08/05/2025 [facility] Healthcare Work Phone: Comment on above:Expected: 08/05/2024 (Approximate), Expires: 08/05/2025Start: 08-05-2024 End: 68-40-0515Npvyusn function 2000 panel - Serum or PlasmaHepatic function panel Lab Routine Encounter for long-term current use of medication Expected: 08/05/2024 (Approximate), Expires: 08/05/2025[facility] HealthcareComment on above: Expected: 08/05/2024 (Approximate), Expires: 08/05/2025Start: 08-05-2024 End: 58-09-6526Tvxdi 1996 panel - Serum or PlasmaLipid panel Lab Routine Dyslipidemia ([facility]) Expected: 08/05/2024 (Approximate), Expires: 08/05/2025 [facility] HealthcareComment on above:Expected: 08/05/2024 (Approximate), Expires: 08/05/2025Start: 08-05-2024 End: 06-65-8169Xqpxfixb specific Ag [Mass/volume] in Serum or PlasmaPSA Lab Routine Screening PSA (prostate specific antigen) Expected: 08/05/2024 (Approximate), Expires: 08/05/2025NO[facility] HealthcareComment on above:Expected: 08/05/2024 (Approximate), Expires: 08/05/2025Start: 08-05-2024 End: 79-07-1304Lvhvxvkgblr [Units/volume] in Serum or PlasmaTSH Lab Routine Class 2 severe obesity due to excess calories with serious comorbidity and body mass index (BMI) of 37.0 to 37.9 in adult ([facility]) Expected: 08/05/2024 (Approximate), Expires: 08/05/2025NO[facility] HealthcareComment on above:Expected: 08/05/2024 (Approximate), Expires: 08/05/2025Start: 61-87-4038Knwmdqvmls A1c measurementDiabetes: Hemoglobin K9MLISM HealthcareStart: 07-15-2024 End: 50-75-3888Jdhid metabolic 1998 panel - Serum or PlasmaBasic metabolic panel Lab Routine Annual physical exam Expected: 07/15/2024 (Approximate), Expires: 07/15/2025[facility] HealthcareComment on above:Expected: 07/15/2024 (Approximate), Expires: 07/15/2025Start: 07-15-2024 End: 62-10-3488GYV W Auto Differential panel - BloodCBC and differential Lab Routine Annual physical exam Expected: 07/15/2024 (Approximate), Expires: 0 07/15/2025[facility] HealthcareComment on above:Expected: 07/15/2024 (Approximate), Expires: 07/15/2025Start: 07-15-2024 End: 55-03-1020Qlpfogvwbe A1c/Hemoglobin.total in BloodHemoglobin A1c Lab Routine Annual physical exam Expected: 07/15/2024 (Approximate), Expires: 07/15/2025[facility] Healthcare Work Phone: Comment on above:Expected: 07/15/2024 (Approximate), Expires: 07/15/2025Start: 07-15-2024 End: 51-65-8223Ruxgopw function 2000 panel - Serum or PlasmaHepatic function panel Lab Routine Annual physical exam Expected: 07/15/2024 (Approximate), Expires: 07/15/2025[facility] HealthcareComment on above:Expected: 07/15/2024 (Approximate), Expires: 07/15/2025Start: 07-15-2024 End: 85-23-6591Gqcxk 1996 panel - Serum or PlasmaLipid panel Lab Routine Annual physical exam Expected: 07/15/2024 (Approximate), Expires: 07/15/2025[facility] HealthcareComment on above:Expected: 07/15/2024 (Approximate), Expires: 07/15/2025Start: 07-15-2024 End: 90-24-7981Ndmqgztv specific Ag [Mass/volume] in Serum or PlasmaPSA Lab Routine Annual physical exam Expected: 07/15/2024 (Approximate), Expires: 07/15/2025[facility] HealthcareComment on above:Expected: 07/15/2024 (Approximate), Expires: 07/15/2025Start: 07-15-2024 End: 51-09-6173Hrshutuwrys [Units/volume] in Serum or PlasmaTSH Lab Routine Annual physical exam Expected: 07/15/2024 (Approximate), Expires: 07/15/2025NO[facility] HealthcareComment on above:Expected: 07/15/2024 (Approximate), Expires: 07/15/2025Start: 07-15-2024 End: 15-30-2067Djonakm encounter procedureNOMS CWM FMComment on above:Arrived Start: 71-52-7090Jebeibuaz vaccinationInfluenza Vaccine (#1)[facility] Start: 16-49-0399Ucachwcasv A1c measurementDiabetes: Hemoglobin [id number] HealthcareStart: 65-44-5442Gzvskzruvutq 50+ years Vaccine (2 of 2 - PCV) Pneumococcal 50+ years Vaccine (2 of 2 - PCV)[facility]: 22-36-4144Drrdcnyjxstq Vaccine: 65+ Years (2 of 2 - PCV)Pneumococcal Vaccine: 65+ Years (2 of 2 - PCV)[facility] HealthcareStart: 33-43-6422Majxthmi vaccine (1 of 2)Shingles vaccine (1 of 2)[facility]Start: 70-09-6262Dekudmyrf for malignant neoplasm of colonRappahannock General HospitalStart: 80-56-7495Lgspe panelLipidsRappahannock General HospitalStart: 09-71-0015QIcX/Tdap/Td vaccine (1 - Tdap)DTaP/Tdap/Td vaccine (1 - Tdap)[facility] Urine screening for proteinDiabetes: Urine Protein ScreeningMid [facility] Start: 86-47-9364Wnolmyapz C screeningHepatitis C screenRappahannock General Hospital Start: 89-47-3996Tscpwcavkc ScreenDepression [facility] Start: 10-36-5228Fhbxlfhqf for malignant neoplasm of [facility] Healthcare Immunizations Immunization DateImmunizationNotesCare WctxbedzTacraxbk30-48-9682mhwifikva virus vaccine, unspecified formulationJENNIFER DAVID [facility]10-08-2023SARS-CoV-2 mRNA (tozinameran 5y-11y) vaccineJENNIFER DAVID [phone]-BxibfBerger Hospital on above: Result Comment: covid 19 mRNA (cvs)31-16-1013bizhktubp virus vaccine, unspecified formulationTulio Ruggiero MD Work Phone: [facility] CenterYwfxcmyelb74-96-9607ifbbhqnfq virus vaccine, unspecified formulationJENNIFER DAVID [facility]09-10-2022SARS-CoV-2 (COVID-19) mRNAMUL.ORD![id number] DAVID [facility]04-12-2022SARS-CoV-2 mRNA (ijakzgulfgn-iahu-vnsfreh) vaccineJENNIFER DAVID [facility]11-14-2021pneumococcal polysaccharide vaccine, 23 valentJENNIFER DAVID [facility]10-24-2021SARS-CoV-2 (COVID-19) mRNA BNT-162b2 vaxJENNIFER DAVID [facility] on above:Result Comment: 2022-05-29: RVM2094-17-4849xymoovytr virus vaccine, unspecified formulationJENNIFER DAVID [facility]03-08-2021SARS-CoV-2 (COVID-19) mRNA BNT-162b2 vaxJENNIFER DAVID General Surgery Lpqqzmij43-56-0212pokjhrppu virus vaccine, unspecified formulationJENNIFER DAVID General Surgery Hlssmeec98-49-0484srjbpmgsw virus vaccine, unspecified formulationJENNIFER DAVID [facility]10-08-2018influenza virus vaccine, unspecified formulationJENNIFER DAVID [facility]09-11-2018influenza virus vaccine, unspecified formulationJENNIFER DAVID [facility]10-19-2013influenza virus vaccine, unspecified formulationJENNIFER DAVID [facility] Payers DatePayer CategoryPayerPolicy [id number] [id number] 2023Medicare2023 [id number]3.693.2.7.3.967746.315 [id number] [id number] 2.16.840.1.763635.19 [id number] [id number] 2.16.840.1.497217.3.57[id number] 2.16.840.1.128821.3.57[id number] 2.16.840.1.723329.3.57[id number] 2.16.840.1.315794.3.579.2.[id number] 2.16.840.1.205425.3.579.2.62588-63-0581Tbxuvxs5209564 2.16.840.1.047383.3.57[id number] 2.16.840.1.188658.3.579.2.72073-32-5832Tdabnkx9032497 2.16.840.1.744639.3.579.2.30040-39-0363Soggjje9831366 2.16.840.1.558408.3.579.2.49610-53-7496Ettsvqd6044766 2.16.840.1.773748.3.579.2.03844-78-2582Illribr3837046 2.16.840.1.318017.3.57[id number] 2.16.840.1.899673.3.579.2.44542-98-7932Wzkudxq5025889 2.16.840.1.781936.3.579.2.29447-62-5646Nifdxcd1050065 2.16.840.1.742016.3.579.2.75311-54-6462Xruyzby0866119 2.16.840.1.957009.3.579.2.82992-10-9429Ijuruvx9352843 2.16.840.1.597989.3.579.2.68251-77-2950Knwiirk1960977 2.16.840.1.862767.3.579.2.91184-03-6756Fgxqimo2866999 2.16.840.1.056983.3.579.2.77618-24-4357Ykdzkvd2887017 2.16.840.1.485693.3.579.2.55917-62-5857Xnphrzl4379544 2.16.840.1.522465.3.579.2.58422-73-2817Vwxzdci4237790 2.16.840.1.806111.3.579.2.17956-76-9901Kbrtlmz3285823 2.16.840.1.140884.3.579.2.40503-68-2144Vhegnln2265780 2.16.840.1.063325.3.579.2.00268-44-5652Jcnoxpr5684441 2.16.840.1.957778.3.579.2.09700-57-2477Uwdqfyf3053717 2.16.840.1.100325.3.579.2.63933-61-6526Rngmjdx5799865 2.16.840.1.484086.3.579.2.49082-42-5709Qmtfjok0333629 2.16.840.1.694122.3.579.2.10665-43-7473Pzsegwr8997410 2.16.840.1.059164.3.579.2.20733-47-1722Fbkhjar8464785 2.16.840.1.327763.3.579.2.35310-95-3268Qkdbign5063824 2.16.840.1.589978.3.579.2.79337-04-1598Uvdxdgl4752500 2.16.840.1.026606.3.579.2.93666-03-3151Bwqhbpl9182765 2.16.840.1.844699.3.579.2.91844-91-0365Gtcywsv6824743 2.16.840.1.679975.3.579.2.01474-74-3163Iawxnwb2690701 2.16.840.1.202891.3.579.2.41481-55-0379Upmnzux6085300 2.16.840.1.412847.3.579.2.98066-18-8081Hbvvnkf0092581 2.16.840.1.808013.3.579.2.38263-38-1748Bwhpwwg7063497 2.16.840.1.355403.3.579.2.33053-99-3155Xfvnwav4934233 2.16.840.1.104309.3.579.2.30691-16-1580Fxmtgqt0362272 2.16.840.1.821257.3.579.2.99239-94-4997Dnhmfwj9162302 2.16.840.1.447121.3.579.2.10434-33-6586Kaovmlf962925275 2.16.840.1.440533.3.579.2.65210-01-6529Csvfzja704230040 2.16.840.1.947486.3.579.2.21704-10-5286Ozweije24901936 2.16.840.1.441996.3.579.2.692850-91-4175Fkqekeq9912511 2.16.840.1.420508.3.579.2.855710-84-6525Rxbjcjv3748907 2.16.840.1.944787.3.579.2.482221-39-2962Swxyabi14956213 2.16.840.1.677187.3.579.2.04977-48-5293Rubocif34528940 2.16.840.1.372993.3.579.2.76183-85-3660Pdvfuly47980190 2.16.840.1.821812.3.579.2.727 Social History DateTypeDetailFacilityStart: 01-12-2024 End: 52-48-1284J[facility] 03-10-2023 End: 75-29-0338Bdjlajp smoking statusNever smoked tobacco (finding)[facility]: 64-38-2943Bdfafsh smoking statusNeverExecutive Urology [facility] Hospitaltart: 65-77-4781Qebzbnj use and exposureSmokeless tobacco non-userNOMS Healthcare Start: 01-12-2024 End: 74-97-4170Rdukohq of Social functionNOMS HealthcareStart: 98-25-4272Mrh assigned at [facility]Not on [facility] HealthcareTobacco smoking status NHISTobacco smoking consumption unknownRappahannock General HospitalStart: 63-30-4762ApoWapi (finding)[facility] Functional Status OozjYbbbkdtzclQmmqrjLvoihupc87-38-9932Ayogsepgib StatusN/A[facility]04-23-2024Functional StatusN/A[facility]11-21-2023Functional StatusN/A [facility] Clinical Notes 04-12-2021 to 01-12-2025 Note Date & AljcAocuNrlggrii05-97-1298 History of Present illness Narrative* Tulio Ruggiero MD - 01/12/2025 9:44 AM EDTAssociated Problem(s): Type 2 diabetes mellitus with hyperglycemia, without long-term current use of insulin ([facility]) Reports BS controlled and due for [...] (BMI) of 37.0 to 37.9 in adult ([facility]) Weight loss indicated. * Tulio Ruggiero [...] index (BMI) of37.0 to 37.9 in adult ([facility]) Weight loss indicated. Type 2 diabetes mellitus with hyperglycemia, without long-term current use of insulin ([facility]) - Primary Reports BS controlled and due for A1C. Stick to ADA diet and limit carbs. Relevant Orders Microalbumin / creatinine, urine ratio Hemoglobin A1c Seasonal allergic rhinitis due to pollen Symptoms controlled with medication and continue. Primary insomnia Sleeping well with medication and continue. documented in this encounterMid [facility] Mental Health CenterFtigpjmtgm22-61-9088 History of Present illness Narrative* Tulio Ruggiero [...] 800-160 MG per tablet documented in this encounterMid [facility] Mental Health CenterAqxsovafsu83-19-2041 NoteProcedure: AP view of the orbits. Clinical [...] Is Signed, Electronically Signed in Other Vendor System)[facility]01-02-2025 History of Present illness Narrative* Tulio Ruggiero MD - 07/15/2024 9:51 AM ESTAssociated Problem(s): Dyslipidemia (CMS/HCC) Due for labs. * Tulio Ruggiero MD - 07/15/2024 9:50 AM ESTAssociated Problem(s): Class 2 severe obesity due to excess calories with serious comorbidity and body mass index (BMI) of 37.0 to 37.9 in adult ([facility]) Weight down 9 pounds in past year. Continue exercise and diet changes. * Tulio Ruggiero MD - 07/15/2024 9:49 AM ESTAssociated Problem(s): Polyneuropathy due to type 2 diabetes mellitus ([facility]) Neuropathy stable and continue neurontin. * Tulio Ruggiero MD - 07/15/2024 9:48 AM ESTAssociated Problem(s): Type 2 diabetes mellitus with hyperglycemia, without long-term current use of insulin ([facility]) Reports BS controlled and due for [...] index (BMI) of37.0 to 37.9 in adult ([facility]) Weight down 9 pounds in past year. Continue exercise and diet changes. Type 2 diabetes mellitus with hyperglycemia, without long-term current use of insulin ([facility]) Reports BS controlled and due for A1C. Stick to ADA diet and limit carbs. Polyneuropathy due to type 2 diabetes mellitus ([facility]) Neuropathy stable and continue neurontin. Annual [...] palpitations. Recommend routine PAT. documented in this encounterMid [facility] Mental Health CenterYfksdsgjte28-57-0643 Hospital Discharge instructions Patient Education 05/27/2024 09:56:36 Kidney Stones, Kopl-ss-Zzth Kidney Stones Kidney stones are rock-like masses [...] Follow these instructions at home: Medicines Take fztv-whh-kzhzlzo and prescription medicines only as told by [...] provider. Document Revised: 02/21/2023 Document Reviewed: 02/21/2023 en-Gauge Patient Education 2023 [employer]. Follow Up Care 11/04/2023 09:32:44 With:LIZ ABREU PA-C, URL Address: When:1 year [facility] 11-14-2024 NotePatient Education Urology Kidney [...] these instructions at home: Medicines ??? Take bktg-ugt-lhfuesj and prescription medicines only as told by [...] provider. Document Revised: 02/21/2023 Document Reviewed: 02/21/2023 en-Gauge Patient Education ? 2023 [employer].[facility] 11-04-2023 Hospital Discharge instructions Patient Education [...] Follow these instructions at home: Medicines Take hkrq-ugg-gahdtzd and prescription medicines only as told by [...] provider. Document Revised: 09/26/2021 Document Reviewed: 09/26/2021 en-Gauge Patient Education 2022 [employer]. Follow Up Care 06/03/2023 10:28:55 With:LIZ ABREU PA-C, URL Address: [address] [facility] [place] [address] [phone] When: Unknown [facility] 11-21-2023 Hospital Discharge instructions Patient [...] treatment? Where to find more information [employer]: www.cancer.org [employer]: www.auanet.org Contact a health care [...] provider. Document Revised: 12/24/2021 Document Reviewed: 12/24/2021 en-Gauge Patient Education 2022 [employer]. Follow Up Care 05/29/2022 11:47:27 With:DAVID IVAN, LIZ Juarez, URL Address: [address] [place] [address] [phone] When: Unknown Comments:6 mos w/ PSA [facility] 05-23-2023 NotePROCEDURE: XR FOOT LT [...] authenticated by: ELIN MCCARTNEY Date: 2022-12-03 09:57[facility] HospitalTonqzeml05-91-6835 NotePROCEDURE: XR FOOT LT MIN 3 VIEWS [...] by: ZAFAR FERRER Date: 2022-11-12 13:59[facility]04-11-2023 NotePROCEDURE: XR FOOT LT MIN 3 VIEWS [...] by: ELIN MCCARTNEY Date: 2022-10-22 07:48[facility]04-11-2023 NotePROCEDURE: XR FOOT LT 2V HISTORY: Pain COMPARISON: XR foot left 10/21/2022 FINDINGS: BONES:Multiple intraoperative spot fluoroscopic images demonstrate mechanical fusion of the first metatarsophalangeal joint and resection of head of first proximal phalanx. IMPRESSION: 1. Surgical changes of left first toe as detailed above. Electronically authenticated by: ELIN MCCARTNEY Date: 2022-10-22 07:46[facility]01-18-2023 NoteCurrently stableUnLakeHealth Beachwood Medical Center01-18-2023 NoteHypertension is well controlled 114/64 Continue lisinopril 5 mg Recent CR elevated 1.59- his cr typically has been 1.2-1.4 - He has been on antibiotics for Lt foot infection- DFU with wound care. [facility]01-18-2023 NoteLipid abnormalities are currently well controlled with lipitor 20 mg- LDL currently 58.6 on labs 07/26/2022 Liver function 04/2022 were normalUnLakeHealth Beachwood Medical Center01-18-2023 NoteUTP CARDIOLOGY PROGRESS NOTE HPI: [...] stable RTC 1 year or earlier if neededUnLakeHealth Beachwood Medical Center01-18-2023 NotePatient here for 6 mo follow up history of PE and hyperlipidemia. Had labs in Apr and echo in Jun 2022. Patient denies chest pain, SOB, and increase in LE edema. Doing very well from cardiac standpoint. Was seeing Dr. Steele for his varicose veins. Review of Systems Cardiovascular: Positive for leg swelling. All other systems reviewed and are negative.[facility] 07-31-2022 NoteCONSULTATION PROCEDURE DATE: 07/31/2022 [...] in the clinic in three months' time.[facility] HospitalBbkkutpa64-20-2856 Note CONSULTATION CONSULTATION DATE: 07/25/2022 HISTORY OF [...] a [place] vacation, where he visited multiple mc[place] may[place] and had a lot of increased [...] plan and will be contacted upon approval.[facility] HospitalUpvmvtuw43-28-8426 NotePROCEDURE: XR FOOT LT MIN 3 VIEWS [...] authenticated by: ELIN MCCARTNEY Date: 2022-07-24 10:21[facility] HospitalWxluyiak30-08-3019 NotePROCEDURE: XR KNEE LT 4V or > HISTORY: Pain in left knee ; chronic left knee pain COMPARISON: XR knee bilateral 05/31/2021 FINDINGS: BONES:Marked narrowing of the medial joint space with suspected jkan-ma-evjn articulation. Moderate-marked narrowing of the lateral compartment. Mild narrowing of anterior compartment. Small periarticular osteophytes involving the margins of all 3 compartments. No fracture or dislocation. SOFT TISSUES:No visible soft tissue swelling. EFFUSION:Small joint effusion. OTHER: Negative. IMPRESSION: 1. Marked degenerative joint disease. Stable to minimally progressed. Electronically authenticated by: ELIN MCCARTNEY Date: 2022-06-10 19:35[facility] HospitalBxbtkajc48-34-0216 Evaluation note* Encounter Date Diagnosis Assessment Notes [...] May,ain in left knee (ICD-10 - M25.562) [employer] Other 10-11-2022 NoteCONSULTATION CONSULTATION DATE: 04/23/2022 CHIEF [...] the time being. CC: Felisa Berrios M.D.[facility] HospitalTldnrxgk47-00-6500 NoteCONSULTATION CONSULTATION DATE: 04/04/2022 HISTORY OF PRESENT [...] indicated. Patient agreed with plan of care.[facility] HospitalHkyacflx24-13-1295 Note CONSULTATION CONSULTATION DATE: 02/14/2022 HISTORY OF [...] time unless otherwise indicated. Patient acknowledges understanding.[facility] HospitalOwtjsruy89-89-1814 NoteCONSULTATION PROCEDURE DATE: 02/14/2022 PREOPERATIVE DIAGNOSIS: Bilateral [...] will be followed up in the office.[facility] HospitalTzvxyzmy85-06-0029 Evaluation note* Encounter Date Diagnosis Assessment Notes [...] Jul,ain in left knee (ICD-10 - M25.562) [employer] Other 09-30-2021 Evaluation note* Encounter Date Diagnosis Assessment Notes Treatment Notes Treatment Clinical Notes Mar, Liver hemangioma (ICD-10 - D18.0 3) Mar,NASH (nonalcoholic steatohepatitis) (ICD-10 - K75.81) [employer] Other Evaluation + Plan note Future Appointments Appointment Date:11/04/2023 08:30:00 AM Scheduled Provider:LIZ ABREU PA-C Location:[facility] Appointment Type:URO Office Visit Diagnostic Tests Pending * PSA Total 06/03/23 [facility] evaluation + Plan note Future Appointments Appointment Date:05/25/2024 08:40:00 AM Scheduled Provider:LIZ ABREU PA-C Location:[facility] Appointment Type:URO Office Visit [facility] evaluation note* Diagnosis Polyneuropathy due to type 2 diabetes mellitus ([facility]) documented in this encounter [facility] HealthcareEvaluation note* Diagnosis Male hypogonadism Other testicular hypofunction documented in this encounter [facility] HealthcareEvaluation note* Diagnosis Annual physical exam- Primary Routine general medical examination at a [facility] care facility Type 2 diabetes mellitus with hyperglycemia, without long-term current use of insulin ([facility]) Type 2 diabetes mellitus with hyperglycemia, without long-term current use of insulin ([facility])- Primary Arthritis, gouty Gouty arthropathy, unspecified [...] hyperglycemia, without long-term current use of insulin ([facility]) Arthritis, gouty Gouty arthropathy, unspecified 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) Class 2 severe obesity due to excess calories with serious comorbidity and body mass index (BMI) of37.0 to 37.9 in adult (CMS/[facility]) Dyslipidemia (CMS/[facility]) Other and unspecified hyperlipidemia documented in this encounter [facility] HealthcareEvaluation note* Diagnosis Annual physical exam- Primary Routine general medical examination at a health care facility Type 2 diabetes mellitus with hyperglycemia, without long-term current use of insulin ([facility]) Type 2 diabetes mellitus with hyperglycemia, without long-term current use of insulin ([facility])- Primary Arthritis, gouty Gouty arthropathy, unspecified Seasonal allergic rhinitis due to pollen DDD (degenerative disc disease), lumbar Degeneration of lumbar or lumbosacral intervertebral disc Polyneuropathy due to type 2 diabetes mellitus ([facility]) Primary insomnia Persistent disorder of initiating or maintaining sleep Annual physical exam- Primary Routine general medical examination at a health care facility Encounter for preoperative assessment Type 2 diabetes mellitus with hyperglycemia, without long-term current use of insulin ([facility]) Arthritis, gouty Gouty arthropathy, unspecified Polyneuropathy due to type 2 diabetes mellitus ([facility]) Class 2 severe obesity due to excess calories with serious comorbidity and body mass index (BMI) of37.0 to 37.9 in adult ([facility]) Dyslipidemia ([facility]) Other and unspecified hyperlipidemia Type 2 diabetes mellitus with hyperglycemia, without long-term current use of insulin ([facility])- Primary Dyslipidemia ([facility]) Other and unspecified hyperlipidemia Class 2 severe obesity due to excess calories with serious comorbidity and body mass index (BMI) of37.0 to 37.9 in adult ([facility]) Encounter for long-term current use of medication Screening PSA (prostate specific antigen) Special screening for malignant neoplasm of prostate documented in this encounter [facility] HealthcareEvaluation note* Diagnosis Annual physical exam- Primary Routine general medical examination at a [facility] care facility Type 2 diabetes mellitus with hyperglycemia, without long-term current use of insulin ([facility]) Type 2 diabetes mellitus with hyperglycemia, without long-term current use of insulin ([facility])- Primary Arthritis, gouty Gouty arthropathy, unspecified Seasonal allergic rhinitis due to pollen DDD (degenerative disc disease), lumbar Degeneration of lumbar or lumbosacral intervertebral disc Polyneuropathy due to type 2 diabetes mellitus ([facility]) Primary insomnia Persistent disorder of initiating or maintaining sleep Annual physical exam- Primary Routine general medical examination at a health care facility Encounter for preoperative assessment Type 2 diabetes mellitus with hyperglycemia, without long-term current use of insulin ([facility]) Arthritis, gouty Gouty arthropathy, unspecified Polyneuropathy due to type 2 diabetes mellitus ([facility]) Class 2 severe obesity due to excess calories with serious comorbidity and body mass index (BMI) of37.0 to 37.9 in adult ([facility]) Dyslipidemia ([facility]) Other and unspecified hyperlipidemia Morbid obesity ([facility]) Morbid obesity Polyneuropathy due to type 2 diabetes mellitus ([facility]) Type 2 diabetes mellitus with hyperglycemia, without long-term current use of insulin ([facility]) documented in this encounter [facility] HealthcareEvaluation note* Diagnosis Annual physical exam- Primary Routine general medical examination at a health care facility Type 2 diabetes mellitus with hyperglycemia, without long-term current use of insulin ([facility]) Type 2 diabetes mellitus with hyperglycemia, without long-term current use of insulin ([facility])- Primary Arthritis, gouty Gouty arthropathy, unspecified Seasonal allergic rhinitis due to pollen DDD (degenerative disc disease), lumbar Degeneration of lumbar or lumbosacral intervertebral disc Polyneuropathy due to type 2 diabetes mellitus ([facility]) Primary insomnia Persistent disorder of initiating or maintaining sleep Annual physical exam- Primary Routine general medical examination at a health care facility Encounter for preoperative assessment Type 2 diabetes mellitus with hyperglycemia, without long-term current use of insulin ([facility]) Arthritis, gouty Gouty arthropathy, unspecified Polyneuropathy due to type 2 diabetes mellitus ([facility]) Class 2 severe obesity due to excess calories with serious comorbidity and body mass index (BMI) of37.0 to 37.9 in adult ([facility]) Dyslipidemia ([facility]) Other and unspecified hyperlipidemia Abscess of abdominal wall- Primary Cellulitis and abscess of trunk documented in this encounter [facility] HealthcareEvaluation note* Diagnosis Annual physical exam- Primary Routine general medical examination at a health care facility Type 2 diabetes mellitus with hyperglycemia, without long-term current use of insulin ([facility]) Type 2 diabetes mellitus with hyperglycemia, without long-term current use of insulin ([facility])- Primary Arthritis, gouty Gouty arthropathy, unspecified Seasonal allergic rhinitis due to pollen DDD (degenerative disc disease), lumbar Degeneration of lumbar or lumbosacral intervertebral disc Polyneuropathy due to type 2 diabetes mellitus ([facility]) Primary insomnia Persistent disorder of initiating or maintaining sleep Annual physical exam- Primary Routine general medical examination at a health care facility Encounter for preoperative assessment Type 2 diabetes mellitus with hyperglycemia, without long-term current use of insulin ([facility]) Arthritis, gouty Gouty arthropathy, unspecified Polyneuropathy due to type 2 diabetes mellitus ([facility]) Class 2 severe obesity due to excess calories with serious comorbidity and body mass index (BMI) of37.0 to 37.9 in adult ([facility]) Dyslipidemia ([facility]) Other and unspecified hyperlipidemia Abscess of abdominal wall- Primary Cellulitis and abscess of trunk Annual physical exam- Primary Routine general medical examination at a health care facility Morbid obesity ([facility]) Morbid obesity Polyneuropathy due to type 2 diabetes mellitus ([facility]) Type 2 diabetes mellitus with hyperglycemia, without long-term current use of insulin ([facility]) Arthritis, gouty Gouty arthropathy, unspecified documented in this encounter [facility] HealthcareEvaluation note* Diagnosis Annual physical exam- Primary Routine general medical examination at a health care facility Type 2 diabetes mellitus with hyperglycemia, without long-term current use of insulin ([facility]) Type 2 diabetes mellitus with hyperglycemia, without long-term current use of insulin ([facility])- Primary Arthritis, gouty Gouty arthropathy, unspecified Seasonal allergic rhinitis due to pollen DDD (degenerative disc disease), lumbar Degeneration of lumbar or lumbosacral intervertebral disc Polyneuropathy due to type 2 diabetes mellitus ([facility]) Primary insomnia Persistent disorder of initiating or maintaining sleep Annual physical exam- Primary Routine general medical examination at a health care facility Encounter for preoperative assessment Type 2 diabetes mellitus with hyperglycemia, without long-term current use of insulin ([facility]) Arthritis, gouty Gouty arthropathy, unspecified Polyneuropathy due to type 2 diabetes mellitus ([facility]) Class 2 severe obesity due to excess calories with serious comorbidity and body mass index (BMI) of37.0 to 37.9 in adult ([facility]) Dyslipidemia ([facility]) Other and unspecified hyperlipidemia Abscess of abdominal wall- Primary Cellulitis and abscess of trunk Male hypogonadism Other testicular hypofunction documented in this encounter [facility] HealthcareEvaluation note* Diagnosis Annual physical exam- Primary Routine general medical examination at a health care facility Type 2 diabetes mellitus with hyperglycemia, without long-term current use of insulin ([facility]) Type 2 diabetes mellitus with hyperglycemia, without long-term current use of insulin ([facility])- Primary Arthritis, gouty Gouty arthropathy, unspecified Seasonal allergic rhinitis due to pollen DDD (degenerative disc disease), lumbar Degeneration of lumbar or lumbosacral intervertebral disc Polyneuropathy due to type 2 diabetes mellitus ([facility]) Primary insomnia Persistent disorder of initiating [...] index (BMI) of37.0 to 37.9 in adult ([facility]) Dyslipidemia ([facility]) Other and unspecified hyperlipidemia Abscess of abdominal wall- Primary Cellulitis and abscess of trunk Polyneuropathy due to type 2 diabetes mellitus ([facility]) documented in this encounter [facility] HealthcareEvaluation note* Diagnosis Annual physical [...] index (BMI) of37.0 to 37.9 in adult ([facility]) Dyslipidemia Other and unspecified hyperlipidemia Type [...] index (BMI) of37.0 to 37.9 in adult ([facility]) Type 2 diabetes mellitus with diabetic chronic kidney disease (HCC) Chronic kidney disease, stage 3a ([facility]) documented in this encounter [facility] HealthcareEvaluation note* Diagnosis Aftercare following left knee joint replacement surgery documented in this encounter [facility] note* Diagnosis Annual physical exam- Primary Routine [...] hyperglycemia, without long-term current use of insulin ([facility]) Arthritis, gouty Gouty arthropathy, unspecified 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) Class 2 severe obesity due to excess calories with serious comorbidity and body mass index (BMI) of37.0 to 37.9 in adult ([facility]) Dyslipidemia Other and unspecified hyperlipidemia Type 2 diabetes mellitus with hyperglycemia, without long-term current use of insulin ([facility])- Primary Arthritis, gouty Gouty arthropathy, unspecified Seasonal allergic rhinitis due to pollen Primary insomnia Persistent disorder of initiating or maintaining sleep Degeneration of intervertebral disc of lumbar region with discogenic back pain Class 2 severe obesity due to excess calories with serious comorbidity and body mass index (BMI) of37.0 to 37.9 in adult ([facility]) Type 2 diabetes mellitus with diabetic chronic kidney disease (HCC) Chronic kidney disease, stage 3a ([facility]) 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) documented in this encounter [facility] general Narrative - Reported* Type Description Date Medical History DM II Medical HistoryHTNMedical HistoryhyperlipidemiaMedical HistorygoutSurgical Historyknee surgerySurgical HistorytonsillectomySurgical Historyvasectomy Surgical Historysinus surgerySurgical Historyback injectionsHospitalization HistorySEE [facility] Other Hospital course Narrative No data available for this section [facility] progress note No data available for this section [facility] Summary Purpose Family History No [...] section and content) DATE CREATED AUTHOR 03/29/2021 [facility] DATE CREATED AUTHOR AUTHOR'S ORGANIZ ATION 08/06/2022 [facility] DATE CREATED AUTHOR AUTHOR'S ORGANIZ ATION 12/20/2022 [facility] DATE CREATED AUTHOR AUTHOR'S ORGANIZ ATION 07/28/2024 [facility] DATE CREATED AUTHOR AUTHOR'S ORGANIZ ATION 01/14/2025 [facility] DATE CREATED AUTHOR AUTHOR'S ORGANIZ ATION 02/04/2025 [facility] DATE CREATED AUTHOR AUTHOR'S ORGANIZ ATION 03/31/2025 [facility] REASON FOR VISIT (unrecogniz ed section and content) ReasonCommentsMed RefillReasonOnset DateCommentsMed Mhfbxy7804/06/2024eason RpavroeyGyxnxk-om7nLjzpntOzxhlueaMxsgwb-xbExex on stomach/ poppedReasonOnset DateCommentsMed Opxzfw4911/08/2024ReasonOnset DateCommentsMed Scmxmp6312/06/2024 Patient Care team informatio n (unrecognized section and content) Team MemberRelationshipSpecialtyStart DateEnd Date Tulio Ruggiero MD [address] [place] [address] PCP - [facility] Idkzsthqav26/1/23 Tulio Ruggiero MD [address] [place] [address] PCP - GeneralFamily Medicine01/12/24Team MemberRelationshipSpecialtyStart DateEnd Date Tulio Ruggiero MD [address] [place] [address] PCP - [facility] Yrhfmywbyr81/1/23 Tulio Ruggiero MD [address] [place] [address] PCP - [facility] Medicine01/12/24Team MemberRelationshipSpecialtyStart DateEnd Date Tulio Ruggiero MD [address] [place] [address] PCP - [facility] Joalwacjbj12/1/23 Tulio Ruggiero MD [address] [place] [address] PCP - [facility]01/12/24Team MemberRelationshipSpecialtyStart DateEnd Date Tulio Ruggiero MD [address] [place] [address] PCP - [facility] Qgxysycxth66/1/23 Tulio Ruggiero MD [address] [place] [address] PCP - Generalmi Medicine01/12/24Team MemberRelationshipSpecialtyStart DateEnd Date Tulio Ruggiero MD [address] [place] [address] PCP - [facility] Zlfhphnanr99/1/23 Tulio Ruggiero MD [address] [place] [address] PCP - GeneralFamily Medicine01/12/24Team MemberRelationshipSpecialtyStart DateEnd Date Tulio Ruggiero MD [address] [place] [address] PCP - [facility] Psvycskiiw14/1/23 Tulio Ruggiero MD [address] [place] [address] PCP - Generalmi Medicine01/12/24Team MemberRelationshipSpecialtyStart DateEnd Date Tulio Ruggiero MD [address] [place] [address] PCP - [facility] Rlnaaktdax82/1/23 Tulio Ruggiero MD [address] [place] [address] PCP - Generalmily Medicine01/12/24Team MemberRelationshipSpecialtyStart DateEnd Date Tulio Ruggiero MD [address] [place] [address] PCP - GeneralFamily Medicine01/12/24Team MemberRelationshipSpecialtyStart DateEnd Date Tulio Ruggiero MD [address] [place] [address] PCP - GeneralFamily Medicine01/12/24Team MemberRelationshipSpecialtyStart DateEnd Date Tulio Ruggiero MD [address] [place] [address] PCP - GeneralFamily Medicine01/12/24Team MemberRelationshipSpecialtyStart DateEnd Date Tulio Ruggiero MD [address] [place] [address] PCP - GeneralFamily Medicine01/12/24Team MemberRelationshipSpecialtyStart DateEnd Date Tulio Ruggiero MD [address] [place] [address] PCP - GeneralFamily Medicine01/12/24Team MemberRelationshipSpecialtyStart DateEnd Date Tulio Ruggiero MD [address] [place] [address] PCP - GeneralFamily Medicine01/12/24Team MemberRelationshipSpecialtyStart DateEnd Date Tulio Ruggiero MD [address] [place] [address] PCP - GeneralFamily Medicine01/12/24Team MemberRelationshipSpecialtyStart DateEnd Date Tulio Ruggiero MD [address] [place] [address] PCP - GeneralFamily Medicine01/12/24Team MemberRelationshipSpecialtyStart DateEnd Date Tulio Ruggiero MD [address] [place] [address] PCP - GeneralFamily Medicine01/31/25Team MemberRelationshipSpecialtyStart DateEnd Date Tulio Ruggiero MD [address] [place] [address] PCP - [facility] Aevefwjvev44/1/ Tulio Ruggiero MD [address] [place] [address] PCP - GeneralFamily Medicine01/12/24Team MemberRelationshipSpecialtyStart DateEnd Date Tulio Ruggiero MD PCP - GeneralFamily Medicine Tulio Ruggiero MD [address] [place] [address] PCP - [facility] Lnvnupgemv13/1/ Tulio Ruggiero MD [address] [place] [address] PCP - GeneralFamily Medicine01/12/24Team MemberRelationshipSpecialtyStart DateEnd Date Tulio Ruggiero MD PCP - GeneralFamily Medicine01/12/24Team MemberRelationshipSpecialtyStart DateEnd Date Tulio Ruggiero MD PCP - [facility]01/12/24Team MemberRelationshipSpecialtyStart DateEnd Date Tulio Ruggiero MD PCP - [facility] Medicine Tulio Ruggiero MD [address] [place] [address] [facility] - [facility] Tulio Ruggiero MD [address] [place] [address] [facility]01/12/24Team MemberRelationshipSpecialtyStart DateEnd Date Tulio Ruggiero MD [facility]01/12/24 FOR RECORDS PERTAINING TO PATIENTS WHO ARE [...] ON THE PRIMARY CLINICAL RECORDS. [facility]. provides no warranty or guarantee of the accuracy or completeness of information in this document.
--- OUTSIDE RECORDS SUMMARY | 2025-06-20 06:33 | XMS_ITS | Clinical Summary ---
Author Organization [facility] Healthcare Address [address] [place] [address] Care Team Providers Care Culturist Name Role Phone Tulio Madrid MD Primary Care Provider [phone] Allergies Active AllergyReactionsCriticalityNoted SzyrUetbtvniXpwsvwjhg10/18/2023 Other Reaction(s): Hyperactive behavior, Other Oxycodone-AcetaminophenItching,UxdjQck2007/31/2022 Medications MedicationSigDispense QuantityRefillsLast FilledStart DateEnd DateStatus allopurinol [...] hyperglycemia, without long-term current use of insulin ([facility])TAKE 1 TABLET BY MOUTH EVERY DAY [...] hyperglycemia, without long-term current use of insulin ([facility])INJECT 2 MG SUBCUTANEOUSLY WEEKLY 9 mL 5Active febuxostat (Uloric) 40 MG tablet Indications:Type 2 diabetes mellitus with hyperglycemia, without long-term current use of insulin (HCC),Morbid obesity (CMS-HCC),Polyneuropathy due to type 2 diabetes mellitus ([facility])Take 1 tablet (40 mg) by mouth [...] Indications:Polyneuropathy due to type 2 diabetes mellitus ([facility])TAKE 1 CAPSULE BY MOUTH IN THE MORNING, EVENING AND BEFORE BEDTIME 270 capsule 5Active Active Problems ProblemNoted DateDiagnosed DateEncounter for long-term current use of medication 08/05/2024Screening PSA (prostate specific antigen)08/05/2024Encounter for preoperative zlwqnekpra68/02/2025 Assessment & Plan (07/15/2024 9:48 AM EST): Able to proceed with upcoming surgery at low risk for complications. History of DM but controlled with medication. No CAD or HTN. Not having chest pain or palpitations. Recommend routine PAT. Seasonal allergic rhinitis due to ejsgvt0201/12/2024 Assessment & Plan (01/12/2025 9:44 AM EDT): Symptoms controlled with medication and continue. Assessment & Plan (01/12/2024 9:44 AM EDT): Symptoms controlled with medication and continue. Primary ysyyvoyr85/01/2024 Assessment & Plan (01/12/2025 9:43 AM EDT): Sleeping well with medication and continue. Assessment & Plan (01/12/2024 9:44 AM EDT): Not sleeping well but wants to continue melatonin. If worsens can try trazodone. Polyneuropathy due to type 2 diabetes pjtzobbu91/10/2024 Assessment & Plan (07/15/2024 9:49 AM EST): Neuropathy stable and continue neurontin. Assessment & Plan (01/12/2024 9:44 AM EDT): Neuropathy stable and continue neurontin. Primary osteoarthritis of knees, yiodnxswn12/10/2024nnual physical exam 07/23/2023 Assessment & Plan (07/15/2024 [...] daily Aspirin therapy. DDD (degenerative disc disease), owmjvb0006/26/2023 Assessment & Plan (01/12/2025 9:43 AM EDT): Pain stable and follow with pain management. Assessment & Plan (01/12/2024 9:44 AM EDT): Pain stable and follow with pain management. Fxcvhjzwaruu06/14/2023 Assessment & Plan (07/15/2024 9:51 AM EST): Due for labs. Arthritis, gouty108/27/2022 Assessment & Plan (01/12/2025 9:43 AM EDT): No flares and continue allopurinol. Assessment & Plan (01/12/2024 9:43 AM EDT): No flares and continue allopurinol. Male zilcguqcrdnu58/14/2023NAFL (nonalcoholic fatty liver)06/26/2023lass 2 severe obesity due [...] with hyperglycemia, without long-term current use of xyceqlo2106/26/2023 Assessment & Plan (01/12/2025 9:44 AM EDT): [...] Stick to ADA diet and limit carbs. Ifxxfybdwxuz67/03/2023ge-related nuclear cataract of both eyes03/10/2023 Resolved Problems [...] RecordedSex Assigned at BirthNot on file Legal JxdSena9909/25/2022 7:24 PM EDTGender IdentityNot on fileSexual Orientation Not on file Last Filed Vital Signs Vital SignReadingTime TakenCommentsBlood Ycoqltfj858/8401/12/2025 8:53 AM EDT Xflrk671501/12/2025 8:53 AM CABYsqnhnvwebm34.2 ??C (97.1 ??F)01/12/2025 8:53 AM EDTRespiratory Ljez299501/12/2025 8:53 AM EDTOxygen Mlbmatbqwa93%01/12/2025 8:53 AM EDTInhaled Oxygen Concentration--Danywt531 kg (293 lb)01/12/2025 8:53 AM EDT Lfonwj808 cm (6' 2 )01/12/2025 8:53 AM EDTBody Mass Index37.62001/12/2025 8:53 AM EDT Plan of Treatment Health MaintenanceDue DateLast DoneCommentsCT Xxtdyraukqtl41/09/1957FIT-DNA 1956FIT1956FOBT1956 3356Ydsfoszuhnfho34/09/1957Pneumococcal Vaccine: 65+ Years (2 of 2 - PCV)OVID-19 Vaccine (2024- season)/, 04/20/2023, 04/20/2023, Additional history existsInfluenza Vaccine (#1)/01/2024, 04/12/2023, 04/17/2022, Additional history naqqojAuvjipjpllk75/02/202701/08/2016Colorectal Cancer Wljxljxdr54/02/2027 Insurance Care Teams Team MemberRelationshipSpecialtyStart DateEnd Date Tulio Madrid MD PCP - GeneralFamily Medicine01/12/24
--- OUTSIDE RECORDS SUMMARY | 2025-06-20 06:33 | XMS_ITS | Clinical Summary ---
Author Organization [facility] Address [address] [place] [address], [address] [place] [address] Care Team Providers Care Ice Carver Name Role Phone Tulio Madrid MD Primary Care Provider + Social History Tobacco UseTypesPacks/DayYears UsedDateSmoking Tobacco: Never AssessedSex and Gender InformationValueDate RecordedSex Assigned at BirthNot on fileLegal Sex Male01/31/2025 12:58 PM EDTGender IdentityNot on fileSexual OrientationNot on file Plan of Treatment Health MaintenanceDue DateLast DoneCommentsDepression Joktzs3808/22/1968Hepatitis C hsrlba7208/22/1974DTaP/Tdap/Td vaccine (1 - Tdap)08/22/19754938Bgpgry13/09/1997 Awlgnamjxuz50/09/2002Colorectal Cancer Jxwhtr2108/22/2001FIT/FOBT: Average risk 2001Fecal-DNA (Cologuard): Average risk2001Sigmoidoscopy/CT vcqqxqznnvoe39/09/2002Shingles vaccine (1 of 2)2006Pneumococcal 50+ years Vaccine [...] Date Tulio Madrid MD [address] [place] [address] PCP - GeneralFamely Medicine01/31/25
--- OUTSIDE RECORDS SUMMARY | 2025-06-20 06:33 | XMS_ITS | Patient Health Record ---
Author Organization [facility] Address [address] [place] [address] Care Team Providers Care Automobile Taillight Assembler Name Role Phone Tulio Madrid Primary Care Provider Daniele Ruffin Unavailable [phone] Results Component Value Reference Range Notes MRI [...] Notes/Report: Primary Insurance Company: [employer] Surgeon/Assist:ANTHONY/VAHE ON[facility]: [facility] @ 9 AMHosp arrival time day of:7:00 AMSurgery End Time:12:00Procedure: LEFT TOTAL KNEE ARTHROPLASTYSpecial Equipment:EDEN AND NEPHEW VISIONEERC-Arm: YESDiagnosis:OSTEOARTHRITIS OF LEFT KNEEAdmission Type:OPAnesthesia Type/CPNB: GENERAL/JQBYEAus78 HR OBSPost-op Appointment Date:08/23/24 @ 2 PMLatex AllergyNO [facility]24 @ [facility] Date/ Medical Billing And Coding Specialist:ISMAEL Shell & Physical Appointment Date/:07/26/24Pre-op labs/Chest Order:CBC [...] XR KNEE LEFT (3 VIEWS) Performed at: [place] [id number] Reason For Referral Reason NO PRIOR AUTH REQUIR ED ANTHEM...NOT SCHED...PLEASE PRECERT LEFT KNEE MRI WITH ASIA PROTOCOL AT [facility] Diagnosis 1 Primary osteoarthrit is of left knee (M17.12) Diagnosis 2 Pain in left knee (M 25.562) Referral Organization [facility] Referring Provider First Name Daniele Referring Provider Last Name Anthony Referring Provider Speciality Orthopedic Surgery Referred Organization [facility] Radiology Dept . Referred Provider Daniele Valencia Referred Address [address] [place] [address], Referred Provider Specialty Orthopedic S urgery Procedure 1 MRI Joint Lower Ext w/o Dye (28539) General Notes Ismael Mariee 2023 10:22:15 AM >, Bell Avendano 06/23/2024 03:49:25 PM > PENDING WITH [facility]. FORM AND CLINICALS FAXED. FORM IN CHART.Juan Alberto Amber 06/25/2024 08:14:25 AM > NO PRIOR AUTH REQUIRED PER FAX FROM [facility]. REF IN CHART. PER AVAILITYWILFRID IS ACTIVE OF 07/14/2022. FAXED TO [facility].Kodi Tricia 06/28/2024 06:56:53 AM >ORDERS FAXED Referral Priority Routine Reason APPROVED ANTHEM... 08/09...PLEASE PRECERT LEFT TOTAL KNEE REPLACEMENT WITH EDEN AND NEPHEW AT [facility] Diagnosis 1 Primary osteoarthrit is of left knee (M17.12) Referral Organization [facility] Referring Provider First Name Daniele Referring Provider Last Name Anthony Referring Provider Speciality Orthopedic Surgery Referred Organization [facility] Referred Provider Daniele Valencia Referred Address [address] [place], [place],[address],[place] Referred Provider Specialty Orthopedic S urgery Procedure 1 Arthroplasty Knee To clare Med/Lat Compartments (10647) General Notes Ismael Mariee 2024 09:43:18 AM >Juan Alberto Amber 07/23/2024 12:38:24 PM > AUTH IS PENDING WITH [facility]. FORM AND CLINICALS WERE FAXED. FORM IN CHART.Juan Alberto Amber 07/26/2024 02:03:05 PM > AUTH WAS APPROVED PER [facility]. APPROVED DATES ARE FROM 07/23/2024-09/20/2024. AUTH #[id number]. AUTH IN CHART. PER AVAILITYWILFRID IS ACTIVE OF 07/14/2022. FAXED TO [facility]. Referral Priority Routine Medications Medication SIG (Take, [...] in the past year?Monthly or less (1 point)Mhqmtp3YdqnfpjdjypezaZqayrxss Tobacco Control (Standard) Question Answer Notes Tobacco use: Nonsmoker Problems Problem Type SNOMED Code ICD Code Onset Dates Problem Status W/U Status Risk Notes Problem History of musculosk eletal operation (984150297) Aftercare following joint replacement surgery (Z47.1) ActiveconfirmedProblemPain of right knee region (finding) (095825445262030)Pain in right knee (M25.561)ActiveconfirmedProblemOsteoarthritis of knee (024884049) Primary osteoarthritis of left knee (M17.12)ActiveconfirmedProblemPain of left knee joint (finding) (739960359513133)Pain in left knee (M25.562)Activeconfirmed ProblemArtificial knee joint present (063498938074)Presence of left artificial knee joint (Z96.652)ActiveconfirmedProblemBilateral arthritis of knees (7170293448256522)Primary osteoarthritis of knees, bilateral (M17.0)Active confirmed Vital Signs Height 6'1 in 01/31/2025 Oiqeoz293 lbs5BMI37.9901/31/2025 Encounters Encounter Location Date [facility] [address] [facility] [place] [address] 06/21/2024 Daniele Valencia Pain in right knee M25.561 ; Pain in left knee M25.562 and Primary osteoarthritis of left knee M17.12 [facility] [address] [facility] [place] [address] 07/26/2024 Daniele Anthony Primary osteoarthrit is of left knee M17.12 [facility] [address] [place] [address] 08/23/2024 Danielejavier Valencia Primary osteoarthrit is of left knee M17.12 [facility] [address] [facility] [place] [address] 09/06/2024 Daniele Valencia Aftercare following joint replacement surgery Z47.1 and Presence of left artificial knee joint Z96.652 [facility] [address] [facility] [place] [address] [place] [address] 10/04/2024 Daniele Valencia Aftercare following joint replacement surgery Z47.1 and Presence of left artificial knee joint Z96.652 [facility] [address] [facility] [place] [address] [place] [address] 12/20/2024 Daniele Valencia Aftercare following joint replacement surgery Z47.1 and Presence of left artificial knee joint Z96.652 [facility] [address] [place] [address] 01/31/2025 Daniele Valencia Aftercare following joint replacement surgery Z47.1 and Presence of left artificial knee joint Z96.652 [place] [address] [place] [address] 08/23/2024 Daniele Valencia Primary osteoarthrit is of left knee M17.12 ; Presence of left artificial knee joint Z96.652 and Aftercare following joint replacement surgery Z47.1 [place] [address] [place] [address] 08/26/2024 Daniele Valencia Aftercare following joint replacement surgery Z47.1 [place] [address] [place] [address] 09/13/2024 Daniele Valencia Aftercare following joint replacement surgery Z47.1 Assessments Encounter Date Diagnosis (ICD Code) Assessment Notes Treatment Notes Treatment Clinical Notes Section Notes 06/21/2024 Pain in right knee (ICD-10 - M25 .561) Left knee gwjpzouzhkdvuk07/09/2024Pain in left knee (ICD-10 - M25.562)Left knee jfqwyuytkxudpf75/13/2025Primary osteoarthritis of left knee (ICD-10 - M17.12) Left knee eilaeaubtuuzdt44/10/2025Primary osteoarthritis of left knee (ICD-10 - M17.12)08/23/2024Primary osteoarthritis of left knee (ICD-10 - M17.12)08/23/2024 Presence of left artificial knee joint (ICD-10 - Z96.652)08/26/2024ftercare following joint replacement surgery (ICD-10 - Z47.1)09/06/2024ftercare following joint replacement surgery (ICD-10 - Z47.1)Status post left total knee kupnjwmorkkn39/03/2025ftercare following joint replacement surgery (ICD-10 - Z47.1)10/04/2024ftercare following joint replacement surgery (ICD-10 - Z47.1) Status post left total knee ywyhzhrzlevk21/09/2025Aftercare following joint replacement surgery (ICD-10 - Z47.1)Status post left total knee arthroplasty. 5Aftercare following joint replacement surgery (ICD-10 - Z47.1)Right knee OA01/31/2025Presence of left artificial knee joint (ICD-10 - Z96.652)Right knee OA12/20/2024Presence of left artificial knee joint (ICD-10 - Z96.652)Status post left total knee arthroplasty.10/04/2024Presence of left artificial knee joint (ICD-10 - Z96.652)Status post left total knee ztfofnfwiydc00/24/2025 Presence of left artificial knee joint (ICD-10 - Z96.652)Status post left total knee ttprgwdnomfz75/10/2025ftercare following joint replacement surgery (ICD-10 - Z47.1)06/21/2024rimary osteoarthritis of left knee (ICD-10 - M17.12)Left knee stjljnnudsgmom70/09/2024OtherI discussion with the patient regarding his left [...] from his PCP and repeat A1c.Left knee jdbkbybwpmdrsg02/13/2025OtherPatient is a 68-year-old male presenting today for his left knee osteoarthritis. He is exhausted con servative management. Do believe total knee arthroplasty can provide him with some benefit. Discussed risk and benefits of surgery in detail. No guarantees send and signed in the office today. Plan for left total knee arthroplasty.Left knee hsptefpyubdzxt11/24/2025OtherPatient overall doing very well today in regard to his left total knee arthroplasty. Mobilizing quite well. Range of motion he is fairly stiff but overall progressing appropriately. Continue DVT prophylaxis. Follow-up in 1 month for clinical exam no x-rays.Status post left total knee ywmsxoxnwgcr43/24/2025OtherPatient doing well today 6 weeks postop. Range of motion improving. Continue with aggressive PT. Hemay start to drive. Will see him back in the office in 6 weeks with x-raysStatus post left total knee rfhnxqzquqhr21/09/2025OtherPatient doing quite well today in regards to [...] Order Date Knee, left 3v AP, Lat, [place] - [address]6595 0 01/31/2025 PT - Evaluate and Treat, as directed, 2 - 3 times a week x 4 - 6 weeks 07/26/2024 XR Foreign Body Loc Eye Bilateral 2024 XR Knee 1 or 2 Views Left 07/23/2024 XR Knee Standing AP Bilateral 07/26/2024 XR Knee Standing AP Bilateral 07/26/2024 SCC- KNEE 4 VIEW LEFT-20038 06/21/2024 XR KNEE LEFT (3 VIEWS) 01/31/2025 SCC- KNEE 4 VIEW RIGHT 97580 06/21/2024 SCC- KNEE 2 VIEW LEFT - 38481 09/06/2024 SCC- KNEE 2 VIEW LEFT - 62880 10/04/2024 SCC- KNEE 2 VIEW LEFT - 95025 12/20/2024 MRI Knee Surg.Navigate or Plan ONLY Left 07/23/2024 Hip to ankle Lt -96482 visioneer 024 MRI : Knee, Left. Eden [employer] Nephew Visiona shanita including long leg films 98855 06/21/2024 Insurance Providers Payer Name Payer Address Payer Phone Subscriber Number Group Number Insured Name Patient Relationship to Insured Coverage Start Date Coverage End Date [employer] [address] [place] [address] [id number] ILA LOCKE Spouse - patient is the spouse of the insured 5 Medications Administered Medication Instructions Date of Administration Dosage Notes BUPIVACAINE mLDepo-Irpcwg16 jVbxcfcmtqh57/26/20244 mL
--- OUTSIDE RECORDS SUMMARY | 2025-06-20 06:33 | XMS_ITS | Clinical Summary ---
Author Organization [facility] Address [address] [place] [address] Care Team Providers Care Drums Teacher Name Role Phone Tulio Madrid MD Primary Care Provider [phone] Allergies Active AllergyReactionsCriticalityNoted IzyaOvvjaflkPntfyndcbJohyu98/18/2023 Oxycodone-Vdxiktyaycwfc05/18/2023 Medications MedicationSigDispense QuantityRefillsLast FilledStart DateEnd DateStatus atorvastatin (Lipitor) 20 mg tablet atorvastatin 20 mg tablet TAKE 1 TABLET BY MOUTH EVERYDAY AT OCAYLOH2504/25/2020Active colchicine 0.6 mg tablet Take 0.6 mg [...] 2 TABLETS BY MOUTH EVERY DAY AT CCAXODW9207/11/2022ctive Active Problems ProblemNoted DateDiagnosed DateBenign prostatic hyperplasia with urinary rtxcrnmruqk94/18/2023History of colonic sivlvz7307/31/2022Hydronephrosis with renal and ureteral calculus cqwskepjyrr50/18/2023Liver mass07/31/2022Long term current use of anticoagulant mpqyapa8807/31/2022Neoplasm of uncertain behavior of liver and biliary gsubdxhf20/18/3120Kraqfrpm28/18/1848Mlpgsm63/31/2022ack pain 12/11/2021iabetes /31/4002Ukpa16/31/2022History of pulmonary embolism 12/11/2021 Assessment & Plan (07/31/2022 2:19 PM EST): Currently stable History of severe acute respiratory syndrome coronavirus 2 (SARS-CoV-2) disease 12/11/20214975Aimrjhcvbfcjda64/31/2022 Assessment & Plan (07/31/2022 2:17 PM EST): Lipid abnormalities are currently well controlled with lipitor 20 mg- LDL currently 58.6 on labs 07/26/2022 Liver function 04/2022 were normal Hypertensive tztdmjye40/31/2022 Assessment & Plan (07/31/2022 2:18 PM EST): Hypertension is well controlled 114/64 Continue lisinopril 5 mg Recent CR elevated 1.59- his cr typically has been 1.2-1.4 - He has been on antibiotics for Lt foot infection- DFU with wound care. Dyxmvxs8112/11/2021bstructive sleep apnea oorhoxoz36/31/2022 Family History Medical HistoryRelationNameCommentsStrokeFatherRelationNameStatusCommentsFather Social History Tobacco UseTypesPacks/DayYears UsedDateSmoking Tobacco: NeverSmokeless Tobacco: Never Tobacco Cessation:Counseling Given: Not Answered Alcohol UseStandard Drinks/WeekCommentsYes0 (1 standard drink = 0.6 oz pure alcohol)occasionalUT Safety & EnvironmentAnswerDate RecordedFear of Current or Ex-PartnerNot on file09/04/2023Emotionally AbusedNot on file09/04/2023hysically AbusedNot on file09/04/2023Sexually AbusedNot on file09/04/2023hysically or Sexually AbusedNot on file09/04/2023Sex and Gender InformationValueDate Recorded Sex Assigned at BirthNot on fileLegal FsjGiri0701/09/2022 9:30 PM EDTGender IdentityNot on fileSexual OrientationNot on file Last Filed Vital Signs Vital SignReadingTime TakenCommentsBlood Fytwvqis259/6401 1:39 PM EST Kmdjj163007/31/2022 1:39 PM ESTTemperature--Respiratory Rate--Oxygen Pfyobmdpke96% 07/31/2022 1:39 PM ESTInhaled Oxygen Concentration--Ctjsjx538 kg (308 lb) 07/31/2022 1:39 PM YPVVqthev347.4 cm (6' 1 )07/31/2022 1:39 PM ESTBody Mass Index40.64007/31/2022 1:39 PM EST Plan of Treatment Health MaintenanceDue DateLast DoneCommentsCT Qcpxskilophd74/09/1957Colonoscopy 1956Colorectal Cancer Fdncxqdwc23/09/1957Diabetes: Hemoglobin A1C 1956FIT-DNA1956FIT1956FOBT1956Medicare Annual Wellness (AWV)1955 5518Mdusxztdqcdmq68/09/1957Diabetes: Retinopathy Zcwqqensq55/09/1967 Depression Nwvvmdyvc22/09/1969Diabetes: Urine Protein Dexhmhquy66/09/1976Adult Xnpvnxh7608/22/1978Zoster Vaccines (1 of 2)2006Fall Risk Qxjjljiio51/09/2022 Pneumococcal Vaccine: 50+ Years (2 of 2 [...] Date Tulio Madrid MD [address] [place] [address] PCP - [facility]07/05/24
--- OUTSIDE RECORDS SUMMARY | 2025-06-20 06:33 | XMS_ITS | Patient Health Record ---
Author Organization [facility] [place] [facility] Address [address] [place] [address] Care Team Providers Care Wood Casket Assembler Name Role Phone None, Unknown or Primary Care Provider Unavailab James Gutierrez Unavailable [phone] Allergies Allergen (clinical drug ingredient) Drug/Non Drug Allergy documented on EMR Reaction Allergy Type Onset Date Status oxycodone Oxycodone Unknown Drug Allergy Active Results Component Value Reference Range Notes PROF CHEM 8 (BAS METB) Reviewed date:08/24/2024 12:52:49 PM Interpretation: Performing Lab: Notes/Report: [facility] , Sodium 143 136-145 mmol/L Potassium4.73.5-5.1 mmol/YPqpfrxmw12776-417 mmol/LCarbon Vpawsqy97.421.0-32.0 mmol/LAnion Gap14.1Qoidhph41802-044 mg/dLBlood Urea Qmvjtxbe80.07.0-18.0 mg/dL Creatinine1.620.70-1.30 mg/dLEstimated GFR ( Dscbqum57>=60 mL/min/1.73m 2 Estimated GFR (Non- Ame43>=60 mL/min/1.73m 2BUN Creatinine Ratio17.3 Calcium7.78.5-10.1 mg/dLPerforming Lab:see noteML - [facility] LBCBC AUTO DIFF Reviewed date:08/24/2024 12:52:49 PM Interpretation: Performing Lab: Notes/Report: [facility] ,White Blood Count13.84.0-11.0 10 3/uLRed Blood Count3.504.70-6.10 10 6/uL Kufumzchoj33.514.0-18.0 g/hUMcbxsvncbv14.842.0-54.0 %Mean Corpuscular Nzhqmi47.4 80.0-94.0 fLMean Corpuscular Pwraczretc18.925.9-34.0 pgMean Corpuscular HGB Conc 33.029.9-35.2 g/dLRed Cell Distribution Width13.711.0-15.0 %Platelet Xgpaz591 150-450 10 3/uLMean Platelet Volume9.29.5-13.5 fLNeutrophils Percent Auto81.1 43.0-75.0 %Lymphocytes Percent Auto8.920.5-60.0 %Monocytes Percent Auto9.11.7- 12.0 %Eosinophils Percent Auto0.10.9-7.0 %Basophils Percent Auto0.10.2-2.0 % Immature Granulocytes Pct Auto0.70.0-0.5 %Neutrophils Absolute Auto11.21.4-6.5 10 3/uLLymphocytes Absolute Auto1.21.2-3.8 10 3/uLMonocytes Absolute Auto1.30.3- 0.8 10 3/uLEosinophils Absolute Auto0.00.0-0.7 10 3/uLBasophils Absolute Auto0.0 0.0-0.1 10 3/uLImmature Granulocytes Abs Auto0.090.00-0.03 10 3/uLPerforming Lab:see noteML - [facility] Reason For Referral No Information Medications [...] due t o type 2 diabetes mellitus (332224272) Type 2 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) ActiveconfirmedProblemFoot ulcer due to type 2 diabetes mellitus (1261792652940) Type 2 diabetes mellitus with foot ulcer (E11.621)ActiveconfirmedProblemAcquired hallux valgus (66702105)Hallux valgus (acquired), left foot (M20.12)Active confirmedProblemAcquired hallux rigidus (5582064)Hallux rigidus, left foot (M20.22)ActiveconfirmedProblemPseudarthrosis after fusion or arthrodesis (743032574)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)Activeconfirmed ProblemPain associated with internal prosthetic device (disorder) (834762889) Pain due to internal orthopedic prosthetic devices, implants and grafts, initial encounter (T84.84XA)ActiveconfirmedProblemHistory of arthrodesis (932011722) Arthrodesis status (Z98.1)ActiveconfirmedProblemAcquired hallux rigidus (9719716)Acquired hallux rigidus of left foot (M20.22)ActiveconfirmedProblem Delayed healing of surgical wound (finding) (910704423)Delayed surgical wound healing (T81.89XA)ActiveconfirmedProblemPolyneuropathy due to type 2 diabetes mellitus (379026264)Diabetes mellitus with polyneuropathy (E11.42)Active confirmedProblemChronic foot ulcer, [...] ACCESS PPO PLUS LOCAL PLAN [address] [place] [address] [id number] Ilya Kanwal Spouse - patient is the spouse of the insured 3 [place] [id number] Part A OnlyLance Caraballof - patient is [...]
--- OUTSIDE RECORDS SUMMARY | 2025-06-20 06:33 | XMS_ITS | Clinical Summary ---
Author Organization [facility] Address [id number] [address] [place] [address] Care Team Providers Care Doctor Of Dental Surgery Name Role Phone Unavailable Primary Care Provider Unavailabl e Social History Tobacco UseTypesPacks/DayYears UsedDateSmoking Tobacco: Never AssessedChildcare AnswerDate AycwryjcCcqylucoaZmouzth64/11/2019EmploymentAnswerDate Recorded XgltcwuqzyDztdrxb06/11/2019Purpose - LifeAnswerDate RecordedPurpose and direction in rspjAbzzmwq96/11/2021ex and Gender InformationValueDate Recorded Sex Assigned at BirthNot on fileLegal GxuOxgy3502/14/2015 9:00 PM EDTGender IdentityNot on fileSexual OrientationNot on file Plan of Treatment Health MaintenanceDue DateLast DoneCommentsDepression Avsxszvoa14/09/1969Tobacco Ooqfrgzcg61/09/1969Adult BMI Zmadwtyxd47/09/1975DTaP,Tdap and Td Vaccines (1 - Tdap)1975Zoster (Shingles) Vaccine (1 of 2)2006Fall Risk Screening 2021Influenza Fzfwudq2603/14/2025RSV ( or age 60+ yrs) (1 - 1-dose 75+ series)2031 Medical Devices Not on file
[2025-06-20 06:51] VITALS: BP 93/68; PULSE 79; TEMP 36.6; O2SAT 97
[2025-06-20 07:36] VITALS: BP 116/78; BP 118/64; PULSE 74; PULSE 77; O2SAT 97
[2025-06-20] MEDS: BUPIVACAINE HCL 0.25% PF 25 MG/10 ML VIAL INJ (07:39)
[2025-06-20] MEDS: METHYLPREDNISOLONE ACETATE 80 MG/ML VIAL INJ (07:39)
[2025-06-20] MEDS: LIDOCAINE HCL 2% 400 MG/20 ML MDV 3 ML INJ (07:39)
[2025-06-20] MEDS: 0.9 % SODIUM CHLORIDE 10 ML SYRINGE - SALINE FLUSH INJ (07:40)
[2025-06-20] MEDS: IOHEXOL 240 MG/ML - 10 ML VIAL INJ (07:40)
--- NOTE | 2025-06-20 07:43 | W.PM.PROCNOT ---
Date of procedure: 06/20/25 Pre-op diagnosis: Pain due to lumbar stenosis with neurogenic claudication Post-op diagnosis: same as pre-op Procedure: Procedure: Bilateral L4-5 transforaminal epidural steroid injection Medications: Bupivacaine 0.25% 2cc, lidocaine 2% 1cc, depomedrol 80mg The patient was seen and examined in the preoperative holding area.? Informed consent was obtained and placed on the chart.? Patient was brought to the medical procedure unit and placed in the prone position where a timeout was completed verifying the correct patient, procedure site, position, and planned special equipment using sterile aseptic technique.? Under direct fluoroscopic visualization a 25-gauge Quincke tipped spinal needle was advanced at level left L4-5 to the designated neural foramen where contrast dye was injected to show adequate spread.? There was no evidence of vascular or adverse uptake.? Epidural spread was appreciated.? The above-mentioned injectate was then placed in a 1.5 mL aliquot preceded by negative aspiration.? The needle was removed. The same procedure, at the same level, was completed on the opposite side. ? Patient was taken to the postprocedural recovery area and monitored for an appropriate length of time before found suitable for discharge in the accompaniment of a responsible adult. Anesthesia: Local Surgeon: Donaldo Sparrow Pathology: none sent Condition: stable Disposition: no change
== END 2025-06-20 07:48 | disposition home or self-care (01) ==
PROVIDERS: PCP Family Medicine; Visit Provider Anesthesiology
DX: M48.062 Spinal stenosis, lumbar region with neurogenic claudication (principal); G89.29 Other chronic pain; E11.8 Type 2 diabetes mellitus with unspecified complications; Z79.85 Long-term (current) use of injectable non-insulin antidiabetic drugs; Z79.84 Long term (current) use of oral hypoglycemic drugs
CPT/HCPCS: 36415; 64483; 82948; J0665; J1010; Q9966

== ENCOUNTER 2025-06-28 10:53 | Outpatient (OUT) | payer MEDICARE, OTHER, SELFPAY ==
--- OUTSIDE RECORDS SUMMARY | 2025-06-28 10:55 | XMS_ITS | Clinical Summary ---
Author Organization [facility] Address [address] [place] [address], [address] [place] [address] Care Team Providers Care Company Manager Name Role Phone Tulio Madrid MD Primary Care Provider + Social History Tobacco UseTypesPacks/DayYears UsedDateSmoking Tobacco: Never AssessedSex and Gender InformationValueDate RecordedSex Assigned at BirthNot on fileLegal Sex Male01/31/2025 12:58 PM EDTGender IdentityNot on fileSexual OrientationNot on file Plan of Treatment Health MaintenanceDue DateLast DoneCommentsDepression Rzitel3908/22/1968Hepatitis C sabwct2308/22/1974DTaP/Tdap/Td vaccine (1 - Tdap)08/22/19751090Aijrtw17/09/1997 Xhndnyhhida41/09/2002Colorectal Cancer Ualsdf2108/22/2001FIT/FOBT: Average risk 2001Fecal-DNA (Cologuard): Average risk2001Sigmoidoscopy/CT mwhhsylhyxqt73/09/2002Shingles vaccine (1 of 2)2006Pneumococcal 50+ years Vaccine [...] Date Tulio Madrid MD [address] [place] [address] PCP - GeneralFaakly Medicine01/31/25
--- OUTSIDE RECORDS SUMMARY | 2025-06-28 10:55 | XMS_ITS | Clinical Summary ---
Author Organization [facility] Address [address] [place] [address] Care Team Providers Care Automobile Travel Club Counselor Name Role Phone Tulio Madrid MD Primary Care Provider [phone] Allergies Active AllergyReactionsCriticalityNoted CmfqNmjywwgmZgirugero22/18/2023 Other Reaction(s): Hyperactive behavior, Other Oxycodone-AcetaminophenItching,PmnmUha4907/31/2022 Medications MedicationSigDispense QuantityRefillsLast FilledStart DateEnd DateStatus allopurinol [...] current use of insulin ([facility])TAKE 1 TABLET BY MOUTH EVERY DAY 90 [...] current use of insulin ([facility])INJECT 2 MG SUBCUTANEOUSLY WEEKLY 9 mL 5Active febuxostat (Uloric) 40 MG tablet Indications:Type 2 diabetes mellitus with hyperglycemia, without long-term current use of insulin (HCC),Morbid obesity (CMS-HCC),Polyneuropathy due to type 2 diabetes mellitus ([facility])Take 1 tablet (40 mg) by mouth Daily [...] type 2 diabetes mellitus ([facility])TAKE 1 CAPSULE BY MOUTH IN THE MORNING, EVENING AND BEFORE BEDTIME 270 capsule 5Active Active Problems ProblemNoted DateDiagnosed DateEncounter for long-term current use of medication 08/05/2024Screening PSA (prostate specific antigen)08/05/2024Encounter for preoperative hddruoweur20/02/2025 Assessment & Plan (07/15/2024 9:48 AM EST): Able to proceed with upcoming surgery at low risk for complications. History of DM but controlled with medication. No CAD or HTN. Not having chest pain or palpitations. Recommend routine PAT. Seasonal allergic rhinitis due to liptpz2101/12/2024 Assessment & Plan (01/12/2025 9:44 AM EDT): Symptoms controlled with medication and continue. Assessment & Plan (01/12/2024 9:44 AM EDT): Symptoms controlled with medication and continue. Primary vkhspuqu96/01/2024 Assessment & Plan (01/12/2025 9:43 AM EDT): Sleeping well with medication and continue. Assessment & Plan (01/12/2024 9:44 AM EDT): Not sleeping well but wants to continue melatonin. If worsens can try trazodone. Polyneuropathy due to type 2 diabetes eldalpcd53/10/2024 Assessment & Plan (07/15/2024 9:49 AM EST): [...] daily Aspirin therapy. DDD (degenerative disc disease), nsymbg7506/26/2023 Assessment & Plan (01/12/2025 9:43 AM EDT): Pain stable and follow with pain management. Assessment & Plan (01/12/2024 9:44 AM EDT): Pain stable and follow with pain management. Geotpnsxfnrq24/14/2023 Assessment & Plan (07/15/2024 9:51 AM EST): Due for labs. Arthritis, gouty108/27/2022 Assessment & Plan (01/12/2025 9:43 AM EDT): No flares and continue allopurinol. Assessment & Plan (01/12/2024 9:43 AM EDT): No flares and continue allopurinol. Male krpxjimpsrnl48/14/2023NAFL (nonalcoholic fatty liver)06/26/2023lass 2 severe obesity due [...] with hyperglycemia, without long-term current use of uwrnjei7806/26/2023 Assessment & Plan (01/12/2025 9:44 AM EDT): [...] Stick to ADA diet and limit carbs. Gglzddmsacrt98/03/2023ge-related nuclear cataract of both eyes03/10/2023 Resolved Problems [...] RecordedSex Assigned at BirthNot on file Legal ZogOuju2609/25/2022 7:24 PM EDTGender IdentityNot on fileSexual Orientation Not on file Last Filed Vital Signs Vital SignReadingTime TakenCommentsBlood Psmwevqs427/8401/12/2025 8:53 AM EDT Vrjrr539301/12/2025 8:53 AM XSJLgzxiuglxsk63.2 ??C (97.1 ??F)01/12/2025 8:53 AM EDTRespiratory Qjob431501/12/2025 8:53 AM EDTOxygen Hugnizblnv93%01/12/2025 8:53 AM EDTInhaled Oxygen Concentration--Nxlzap129 kg (293 lb)01/12/2025 8:53 AM EDT Fshabz100 cm (6' 2 )01/12/2025 8:53 AM EDTBody Mass Index37.62001/12/2025 8:53 AM EDT Plan of Treatment Health MaintenanceDue DateLast DoneCommentsCT Cacqytucptfq64/09/1957FIT-DNA 1956FIT1956FOBT1956 6215Wlhimwuqlsknt21/09/1957Pneumococcal Vaccine: 65+ Years (2 of 2 - PCV)OVID-19 Vaccine (2024- season)/, 04/20/2023, 04/20/2023, Additional history existsInfluenza Vaccine (#1)/01/2024, 04/12/2023, 04/17/2022, Additional history xnqjylXvefciaftuv40/02/202701/08/2016Colorectal Cancer Byxlnlsmc83/02/2027 Insurance Care Teams Team MemberRelationshipSpecialtyStart DateEnd Date Tulio Madrid MD PCP - GeneralFamily Medicine01/12/24
--- OUTSIDE RECORDS SUMMARY | 2025-06-28 10:55 | XMS_ITS | Clinical Summary ---
Author Organization [facility] Address [id number] [address] [place] [address] Care Team Providers Care Optics Manufacturing Technician Name Role Phone Unavailable Primary Care Provider Unavailabl e Social History Tobacco UseTypesPacks/DayYears UsedDateSmoking Tobacco: Never AssessedChildcare AnswerDate SlknsfdaXgeiqeqvpDnrpvcj81/11/2019EmploymentAnswerDate Recorded EphuazzxbdFvxxvft42/11/2019Purpose - LifeAnswerDate RecordedPurpose and direction in ogvzQolpuye62/11/2021ex and Gender InformationValueDate Recorded Sex Assigned at BirthNot on fileLegal ZeeBcft7202/14/2015 9:00 PM EDTGender IdentityNot on fileSexual OrientationNot on file Plan of Treatment Health MaintenanceDue DateLast DoneCommentsDepression Yywjwtwiq87/09/1969Tobacco Nncdvlbkj40/09/1969Adult BMI Xttystpyh71/09/1975DTaP,Tdap and Td Vaccines (1 - Tdap)1975Zoster (Shingles) Vaccine (1 of 2)2006Fall Risk Screening 2021Influenza Xfshtnl4903/14/2025RSV ( or age 60+ yrs) (1 - 1-dose 75+ series)2031 [employer] Devices Not on file
--- OUTSIDE RECORDS SUMMARY | 2025-06-28 10:55 | XMS_ITS | Clinical Summary ---
Author Organization [facility] Address [address] [place] [address] Care Team Providers Care Curing Room Worker Name Role Phone Tulio Madrid MD Primary Care Provider Allergies Active AllergyReactionsCriticalityNoted PwviQsrnhthxPfbsrmbotOteeb58/18/2023 Oxycodone-Aiuyzoqgbpvvx98/18/2023 Medications MedicationSigDispense QuantityRefillsLast FilledStart DateEnd DateStatus atorvastatin (Lipitor) 20 mg tablet atorvastatin 20 mg tablet TAKE 1 TABLET BY MOUTH EVERYDAY AT DXOULME1804/25/2020Active colchicine 0.6 mg tablet Take 0.6 mg [...] 2 TABLETS BY MOUTH EVERY DAY AT VXGDYTR2707/11/2022ctive Active Problems ProblemNoted DateDiagnosed DateBenign prostatic hyperplasia with urinary lralzaiyges09/18/2023History of colonic oikfcb4707/31/2022Hydronephrosis with renal and ureteral calculus rpfhzexdubt08/18/2023Liver mass07/31/2022Long term current use of anticoagulant bhqcfci2607/31/2022Neoplasm of uncertain behavior of liver and biliary fuwhjxad61/18/2662Jwewfbha28/18/1898Aejdth48/31/2022ack pain 12/11/2021iabetes vfxlehfm93/31/6839Orng53/31/2022History of pulmonary embolism 12/11/2021 Assessment & Plan (07/31/2022 2:19 PM EST): Currently stable History of severe acute respiratory syndrome coronavirus 2 (SARS-CoV-2) disease 12/11/20216836Wjuqwhdmdjqbrb12/31/2022 Assessment & Plan (07/31/2022 2:17 PM EST): Lipid abnormalities are currently well controlled with lipitor 20 mg- LDL currently 58.6 on labs 07/26/2022 Liver function 04/2022 were normal Hypertensive nsrcadme18/31/2022 Assessment & Plan (07/31/2022 2:18 PM EST): Hypertension is well controlled 114/64 Continue lisinopril 5 mg Recent CR elevated 1.59- his cr typically has been 1.2-1.4 - He has been on antibiotics for Lt foot infection- DFU with wound care. Omrxvjr5012/11/2021bstructive sleep apnea egujsoth42/31/2022 Family History Medical HistoryRelationNameCommentsStrokeFatherRelationNameStatusCommentsFather Social History Tobacco UseTypesPacks/DayYears UsedDateSmoking Tobacco: NeverSmokeless Tobacco: Never Tobacco Cessation:Counseling Given: Not Answered Alcohol UseStandard Drinks/WeekCommentsYes0 (1 standard drink = 0.6 oz pure alcohol)occasionalUT Safety & EnvironmentAnswerDate RecordedFear of Current or Ex-PartnerNot on file09/04/2023Emotionally AbusedNot on file09/04/2023hysically AbusedNot on file09/04/2023Sexually AbusedNot on file09/04/2023hysically or Sexually AbusedNot on file09/04/2023Sex and Gender InformationValueDate Recorded Sex Assigned at BirthNot on fileLegal UeqIicu3301/09/2022 9:30 PM EDTGender IdentityNot on fileSexual OrientationNot on file Last Filed Vital Signs Vital SignReadingTime TakenCommentsBlood Yjznlkyv987/6401 1:39 PM EST Cvlsc868707/31/2022 1:39 PM ESTTemperature--Respiratory Rate--Oxygen Pyybwfcaiv36% 07/31/2022 1:39 PM ESTInhaled Oxygen Concentration--Dfjymo725 kg (308 lb) 07/31/2022 1:39 PM TMYCeperh795.4 cm (6' 1 )07/31/2022 1:39 PM ESTBody Mass Index40.64007/31/2022 1:39 PM EST Plan of Treatment Health MaintenanceDue DateLast DoneCommentsCT Mzmmworoncij52/09/1957Colonoscopy 1955Colorectal Cancer Hnwxapuew61/09/1957Diabetes: Hemoglobin A1C 1956FIT-DNA1956FIT1956FOBT1956Medicare Annual Wellness (AWV)1955 9179Wicynnrccojpw32/09/1957Diabetes: Retinopathy Bwprqgevq52/09/1967 Depression Ygxvwrrzo44/09/1969Diabetes: Urine Protein Mbfblxoug25/09/1976Adult Lgfblbw8508/22/1978Zoster Vaccines (1 of 2)2006Fall Risk Tsvfkdpti59/09/2022 Pneumococcal Vaccine: 50+ Years (2 of 2 [...] Date Tulio Madrid MD [address] [place] [id number] PCP - [facility]07/05/24
--- NOTE | 2025-06-28 11:02 | XR_ITS ---
The [address] [address] Patient Name: CARLOS LOCKE MRN: [id number] date: 1955 Sex: M Assigned Patient Location: [facility] Current Patient Location: [facility] Accession/Order Number: [id number] Exam Date: 06/28/2025 12:24 Report Date: 06/28/2025 12:57 At the request of: LINA SHIN MD Procedure: XR chest 2V PA AND LATERAL CHEST: CLINICAL HISTORY: Preoperative clearance. COMPARISON: 07/20/2024 There is no focal parenchymal consolidation, effusion or pneumothorax. The cardiac, hilar and mediastinal silhouettes are within normal limits. There is no vascular congestion. The visualized bony thorax is intact. There is endplate spurring at the spine. XR/XR chest 2V IMPRESSION: NO ACUTE CARDIOPULMONARY ABNORMALITY. Impression dictated by: Brunilda Rogers M.D. 06/28/2025 12:57 PM Dictation Location: [place] [address] Electronically authenticated by: [id number] Y Date: 06/28/2025 12:57
--- NOTE | 2025-06-28 11:02 | ECG_ITS ---
The [facility] Test Date: 2025-06-28 Pat Name: CARLOS LOCKE Department: Room: - Gender: Male Instructional Support Assistant: : 1955 Requested By: LINA SHIN Order Number: [id number] Reading MD: YAMILET MELENDEZ Measurements Intervals Griffin Rate: 72 P: 22 HI: 168 QRS: -57 QRSD: 138 T: 53 QT: 386 QTc: 423 Interpretive Statements SINUS RHYTHM WITH OCCASIONAL SUPRAVENTRICULAR PREMATURE COMPLEXES MARKED LEFT AXIS DEVIATION [QRS AXIS < -30] RIGHT BUNDLE BRANCH BLOCK [120+ ms QRS DURATION, UPRIGHT V1, 40+ ms S IN I/aVL/V4/V5/V6] Compared to ECG 07/20/2024 09:50:05 Left-axis deviation now present Left anterior fascicular block no longer present Electronically Signed On 06-28-2025 16:43:14 EST by YAMILET MELENDEZ
--- NOTE | 2025-06-28 11:27 | PM.PRESUREVA ---
History of Present Illness History of Present Illness Chief complaint: ureteral and or kidney stone Narrative: Patient presents for presurgical testing. Please see HPI from Dr. Florian dated June 27, 2025. Review of Systems ROS Narrative Please see ROS from Dr. Florian dated June 27, 2025. [facility] Medical History (Updated 06/28/25 @ 11:08 by Carline Fowler NP) Ureteral stone ?N20.1 - Calculus of ureter (ICD-10) Insomnia ?G47.00 - Insomnia, unspecified (ICD-10) Seasonal allergic rhinitis ?J30.2 - Other seasonal allergic rhinitis (ICD-10) Polyneuropathy due to type 2 diabetes mellitus ?E11.42 - Type 2 diabetes mellitus with diabetic polyneuropathy (ICD-10) Nonalcoholic fatty liver ?K76.0 - Fatty (change of) liver, not elsewhere classified (ICD-10) Hypogonadism Degenerative disc disease, lumbar ?M51.369 - Other intervertebral disc degeneration, lumbar region without mention of lumbar back pain or lower extremity pain (ICD-10) Pseudophakia ?Z96.1 - Presence of intraocular lens (ICD-10) Cataract ?H26.9 - Unspecified cataract (ICD-10) Lumbar spondylosis ?M47.816 - Spondylosis without myelopathy or radiculopathy, lumbar region (ICD-10) Diabetes mellitus ?E11.9 - Type 2 diabetes mellitus without complications (ICD-10) Knee pain ?M25.569 - Pain in unspecified knee (ICD-10) Back pain ?M54.9 - Dorsalgia, unspecified (ICD-10) Hypertension ?I10 - Essential (primary) hypertension (ICD-10) Gout ?M10.9 - Gout, unspecified (ICD-10) Sleep apnea ?G47.30 - Sleep apnea, unspecified (ICD-10) Hyperlipidemia ?E78.5 - Hyperlipidemia, unspecified (ICD-10) Myofascial pain ?M79.18 - Myalgia, other site (ICD-10) Bilateral primary osteoarthritis of knee ?M17.0 - Bilateral primary osteoarthritis of knee (ICD-10) Pulmonary embolism (07/2020) ?I26.99 - Other pulmonary embolism without acute cor pulmonale (ICD-10) COVID-19 (07/2020) ?U07.1 - COVID-19 (ICD-10) Kidney stones ?N20.0 - Calculus of kidney (ICD-10) Knee osteoarthritis ?M17.9 - Osteoarthritis of knee, unspecified (ICD-10) Fusion, toes ?Q70.20 - Fused toes, unspecified foot (ICD-10) Surgical History (Updated 06/27/25 @ 14:29 by Carline Fowler NP) History of total knee arthroplasty (08/23/24) ?Z96.659 - Presence of unspecified artificial knee joint (ICD-10) H/O sinus surgery ?Z98.890 - Other specified postprocedural states (ICD-10) History of vasectomy ?Z98.52 - Vasectomy status (ICD-10) S/P cataract extraction and insertion of intraocular lens ?Z98.49 - Cataract extraction status, unspecified eye (ICD-10) ?Z96.1 - Presence of intraocular lens (ICD-10) History of radiofrequency ablation (RFA) of nerve of lumbar spine ?Z98.890 - Other specified postprocedural states (ICD-10) S/P epidural steroid injection ?Z92.241 - Personal history of systemic steroid therapy (ICD-10) History of foot surgery ?Z98.890 - Other specified postprocedural states (ICD-10) History of tonsillectomy and adenoidectomy ?Z90.89 - Acquired absence of other organs (ICD-10) S/P right knee arthroscopy ?Z98.890 - Other specified postprocedural states (ICD-10) S/P left knee arthroscopy ?Z98.890 - Other specified postprocedural states (ICD-10) Family History Other Family history of diabetes mellitus Family history of hypertension Family history of prostate cancer Family history of stroke Social History Within the past year, how often did you have a drink containing alcohol: monthly or less Smoking status: Never smoker Non-prescribed substance use: denies use Previous occupational history: RETIRED Highest level of school completed/degree received: high school graduate Meds Home Medications and Allergies Home Medications ?Medication ?Instructions ?Recorded ?Confirmed ?Type acetaminophen 500 mg tablet 1,000 mg PO Q6H PRN pain 01/06/23 06/28/25 History (Acetaminophen Extra Strength) ascorbic acid (vitamin C) 500 mg 500 mg PO BID 01/06/23 06/28/25 History tablet (C-500) cholecalciferol (vitamin D3) 25 1,000 unit PO BID 01/06/23 06/28/25 History mcg (1,000 unit) tablet (Vitamin D3) colchicine 0.6 mg tablet 0.6 mg PO TID 01/06/23 06/28/25 History febuxostat 40 mg tablet 40 mg PO DAILY 01/06/23 06/28/25 History lisinopril 5 mg tablet 5 mg PO DAILY 01/06/23 06/28/25 History metformin 500 mg tablet,extended 500 mg PO DAILY 01/06/23 06/28/25 History release 24 hr allopurinol 300 mg tablet 300 mg PO DAILY 07/20/24 06/28/25 History semaglutide 2 mg/dose (8 mg/3 mL) 2 mg subcut QWEEK 07/20/24 06/28/25 History subcutaneous pen injector (Ozempic) testosterone cypionate 200 mg/mL 200 mg IM Q14D 07/20/24 06/28/25 History intramuscular oil trazodone 50 mg tablet 50 mg PO .QHS 08/23/24 06/28/25 History diclofenac sodium 50 mg 50 mg PO BID #60 tabs 11/25/24 06/28/25 Rx tablet,delayed release tramadol 50 mg tablet 50 mg PO BID PRN pain #60 tabs 05/04/25 06/28/25 Rx cyclobenzaprine 10 mg tablet 10 mg PO HS 05/18/25 06/28/25 History gabapentin 300 mg capsule 300 mg PO TID 06/28/25 06/28/25 History Allergies Allergy/AdvReac Type Severity Reaction Status Date / Time oxycodone AdvReac hyperactivi Verified 06/28/25 11:11 ty Exam Narrative Exam Narrative: Constitutional: Awake, alert, comfortable, well-appearing, nontoxic, interactive, vital signs as charted Head: Normocephalic, atraumatic Neck: Supple, normal appearance, normal range of motion, no meningeal signs, no lymphadenopathy Respiratory: No respiratory distress, breath sounds clear Cardiovascular: Regular rate and rhythm, strong and regular heart tones Abdomen: Nontender, normal bowel sounds, soft, no CVA tenderness Musculoskeletal: Normal gait, no swelling or edema Skin: No rashes or induration, no lesions, only visible skin inspected Neuro: No neurological deficits, normal sensation Psychiatric: Oriented ?3, normal affect Assessment and Plan Assessment and Plan (1) Ureteral stone: (2) Kidney stones: Plan Cystoscopy, right retrograde, right ureteroscopy, laser, possible right stent placement scheduled with Dr. Florian July 05, 2025.
[2025-06-28 12:23] LABS: Hematocrit 49.2 % (42.0-54.0); Hemoglobin 16.3 g/dL (14.0-18.0); Immature Granulocytes Abs Auto 0.02 10^3/uL (0.00-0.03); Immature Granulocytes Pct Auto 0.3 % (0.0-0.5); Lymphocytes Absolute Auto 1.4 10^3/uL (1.2-3.8); Mean Corpuscular HGB Conc 33.1 g/dL (29.9-35.2); Mean Corpuscular Hemoglobin 32.4 pg (25.9-34.0); Mean Corpuscular Volume 97.8 fL (80.0-94.0); Platelet Count 206 10^3/uL (150-450); Red Blood Count 5.03 10^6/uL (4.70-6.10); White Blood Count 7.1 10^3/uL (4.0-11.0)
[2025-06-28 12:31] LABS: Anion Gap 14.1; Blood Urea Nitrogen 27.0 mg/dL (7.0-18.0); Calcium 8.7 mg/dL (8.5-10.1); Carbon Dioxide 27.6 mmol/L (21.0-32.0); Chloride 107 mmol/L (98-107); Estimated GFR (African America 56 (>=60 mL/min/1.73m^2); Estimated GFR (Non-African Ame 46 (>=60 mL/min/1.73m^2); Glucose 88 mg/dL (74-106); Potassium 4.7 mmol/L (3.5-5.1); Sodium 144 mmol/L (136-145)
[2025-06-28 12:38] LABS: INR 1.09; Partial Thromboplastin Time 27.2 sec (22.3-36.2); Prothrombin Time 11.4 sec (9.0-11.6)
== END 2025-06-28 10:54 | disposition home or self-care (01) ==
LOC: PST 10:54
PROVIDERS: PCP Family Medicine; Visit Provider Urology
DX: Z01.810 Encounter for preprocedural cardiovascular examination (principal); Z01.812 Encounter for preprocedural laboratory examination; Z01.818 Encounter for other preprocedural examination; N20.0 Calculus of kidney; N20.1 Calculus of ureter
CPT/HCPCS: 71046; 80048; 85025; 85610; 85730; 93005; G0463

== ENCOUNTER 2025-06-29 07:52 | Outpatient (OUT) | payer MEDICARE, OTHER, SELFPAY ==
--- OUTSIDE RECORDS SUMMARY | 2024-07-27 04:00 | XMS_ITS ---
Author Organization The [facility] in [place] Address [address] [place] [address] Care Team Providers Care Rental Management Trainee Name Role Phone None, Unknown or Primary Care Provider Unavailab marylou NealevanJames [phone] REASON FOR VISIT -6 Month Follow Up- Encounters Encounter Location Date Provider Diagnosis The [facility] (PODIATRY) [address] [place] [address] [place] [address] 07/27/2024 James Raya Left foot pain M79.672 Assessments Encounter Date Diagnosis (ICD Code) Assessment Notes Treatment Notes Treatment Clinical Notes Section Notes 07/27/2024 Left foot pain (ICD-10 - M79.672 ) Plan Of Treatment Pending Test Test Name Order Date XR Foot LT (3 views) * 07/27/2024 Progress Notes * Warner LOCKE CDOB: [birth year] (69 yo M)Acc No.[id number]:07/27/2024 UNLOCKED PROGRESS NOTE Follow Up Patient: Etelvina BOND Warner Farrar :?James Raya DPVirgilio, MSDOB:1955???Age: 68 Y???Sex:MaleDate:07/27/2024Phone:[phone]:JARETH DUNCAN [id number]:Unknown or None Subjective: * Chief Complaints: * 1 . -6 Month Follow Up-. * Medical History: Objective: * Vitals: Assessment: * Assessment: 1.?Left foot pain - M79.672??? Plan: * Treatment: ?Imaging: XR Foot LT (3 views) * * * Electronic signature of James Raya DPM on 06/29/2025 at 07:56 AM ESTSign off status: PendingVisit Status:?CANC (Cancelled) * Provider: Supriya Raya DPM, MS Date: 0 07/27/2024 Generated for Printing/Faxing/eTransmitting on:?06/29/2025 07:56 AM EST
--- OUTSIDE RECORDS SUMMARY | 2024-08-23 09:00 | XMS_ITS ---
Author Organization [facility] Address [address] [place] [address] Care Team Providers Care Network Intern Name Role Phone Tulio Madrid Primary Care Provider Julissa chris Daniele Valencia Unavailable [phone] REASON FOR VISIT 1ST POST OP LEFT TKA 08/09 Problems Problem Type SNOMED Code ICD Code Onset Dates Problem Status W/U Status Risk Notes Problem History of musculosk eletal operation (361823141) Aftercare following joint replacement surgery (Z47.1) ActiveconfirmedProblemArtificial knee joint present (143764993096)Presence of left artificial knee joint (Z96.652)Activeconfirmed Encounters Encounter Location Date Provider Diagnosis [facility] Office [address] [place] [address] [place] [address] 08/23/2024 Daniele Valencia Aftercare following joint replacement [...] Date SCC- KNEE 2 VIEW LEFT - 47762 08/23/2024 Progress Notes * CARLOS LOCKE CDOB: [birth year] (69 yo M)Acc No.[id number]:08/23/2024 Progress Notes Patient: Etelvina BNODCARLOS :?Daniele Valencia, DODOB:1955???Age:69 Y ???Sex:MaleDate:08/23/2024Phone:[phone]:[address], [id number]:Tulio Madrid Subjective: * Chief Complaints: * 1 . 1ST POST OP LEFT TKA 08/09. * Medical History: Objective: * Vitals: Assessment: * Assessment: 1.?Aftercare following joint replacement surgery - Z47.1 (Primary)???2.?Presence of left artificial knee joint - Z96.652??? Plan: * Treatment: ?Imaging: SCC- KNEE 2 VIEW LEFT - 937390.?Presence of left artificial knee joint?Imaging: SCC- KNEE 2 VIEW LEFT - 54146 Forms: * Images: * Electronic signature of Daniele Valencia DO on 06/29/2025 at 07:56 AM ESTSign off status: Pending * Provider: oNa Valencia DO Date: 0 08/23/2024 Generated for Printing/Faxing/eTransmitting on:?06/29/2025 07:56 AM EST
--- OUTSIDE RECORDS SUMMARY | 2024-11-22 08:10 | XMS_ITS ---
Author Organization [facility] Address [address] [place] [address] Care Team Providers Care Fire Marshal Refinery Name Role Phone Tulio Madrid Primary Care Provider Daniele Ruffin Unavailable [phone] REASON FOR VISIT LEFT KNEE RECHECK DOS 02.10 Encounters Encounter Location Date Provider Diagnosis [facility] Office [address] [place] [address] [place] [address] 11/22/2024 Daniele Valencia Aftercare following joint replacement surgery Z47.1 Assessments Encounter Date Diagnosis (ICD Code) Assessment Notes Treatment Notes Treatment Clinical Notes Section Notes 11/22/2024 Aftercare following joint replac ement surgery (ICD-10 - Z47.1) Plan Of Treatment Pending Test Test Name Order Date SCC- KNEE 2 VIEW LEFT - 79340 11/22/2024 Progress Notes * CARLOS LOCKE CDOB: [birth year] (69 yo M)Acc No.[id number]:11/22/2024 Patient:?CARLOS LOCKE :?Daniele Valencia, DODOB:1955???Age:69 Y ???Sex:MaleDate:11/22/2024Phone:[phone]:JARETH DUNCAN [id number]:Tulio Madrid Subjective: * Chief Complaints: * 1 . LEFT KNEE RECHECK DOS 02.10. * Medical History: Objective: * Vitals: Assessment: * Assessment: 1.?Aftercare following joint replacement surgery - Z47.1 (Primary)??? Plan: * Treatment: ?Imaging: SCC- KNEE 2 VIEW LEFT - 73013 * Procedure Codes: 7 3560 X-ray Knee, 2 view Forms: * Images: * Electronic signature of Daniele Valencia DO on 06/29/2025 at 07:56 AM ESTSign off status: Pending * Provider: Noa Valencia DO Date: 0 11/22/2024 Generated for Printing/Faxing/eTransmitting on:?06/29/2025 07:56 AM EST
--- OUTSIDE RECORDS SUMMARY | 2025-06-29 07:55 | XMS_ITS | Clinical Summary ---
Author Organization [facility] Address [id number] [address] [place] [address] Care Team Providers Care Pta Name Role Phone Unavailable Primary Care Provider Unavailabl e Social History Tobacco UseTypesPacks/DayYears UsedDateSmoking Tobacco: Never AssessedChildcare AnswerDate CjfdfegyLyeoniqcjPhkmdfm13/11/2019EmploymentAnswerDate Recorded BmcnjogoyoOxuqcur12/11/2019Purpose - LifeAnswerDate RecordedPurpose and direction in dwulYwcoyxu53/11/2021ex and Gender InformationValueDate Recorded Sex Assigned at BirthNot on fileLegal OlpGlve0502/14/2015 9:00 PM EDTGender IdentityNot on fileSexual OrientationNot on file Plan of Treatment Health MaintenanceDue DateLast DoneCommentsDepression Fkrvscyzb77/09/1969Tobacco Ejikcodye23/09/1969Adult BMI Aiiyvovlb30/09/1975DTaP,Tdap and Td Vaccines (1 - Tdap)1975Zoster (Shingles) Vaccine (1 of 2)2006Fall Risk Screening 2021Influenza Fvixzwj1803/14/2025RSV ( or age 60+ yrs) (1 - 1-dose 75+ series)2031 Medical Devices Not on file
--- OUTSIDE RECORDS SUMMARY | 2025-06-29 07:56 | XMS_ITS | Clinical Summary ---
Author Organization [facility] Address [address] [place] [address], [address] [place] [address] Care Team Providers Care Weeder Name Role Phone Tulio Madrid MD Primary Care Provider + Social History Tobacco UseTypesPacks/DayYears UsedDateSmoking Tobacco: Never AssessedSex and Gender InformationValueDate RecordedSex Assigned at BirthNot on fileLegal Sex Male01/31/2025 12:58 PM EDTGender IdentityNot on fileSexual OrientationNot on file Plan of Treatment Health MaintenanceDue DateLast DoneCommentsDepression Bbqhac0608/22/1968Hepatitis C koodgg7108/22/1974DTaP/Tdap/Td vaccine (1 - Tdap)08/22/19758831Cndmkh71/09/1997 Diiazyzluam88/09/2002Colorectal Cancer Unbddp2008/22/2001FIT/FOBT: Average risk 2001Fecal-DNA (Cologuard): Average risk2001Sigmoidoscopy/CT cxndonccslkt63/09/2002Shingles vaccine (1 of 2)2006Pneumococcal 50+ years Vaccine [...] Date Tulio Madrid MD [address] [place] [address] PCP - GeneralFainly Medicine01/31/25
--- OUTSIDE RECORDS SUMMARY | 2025-06-29 07:56 | XMS_ITS | Clinical Summary ---
Author Organization [facility] Address [address] [place] [address] Care Team Providers Care Religious Activities Director Name Role Phone Tulio Madrid MD Primary Care Provider [phone] Allergies Active AllergyReactionsCriticalityNoted CxwbCpvuqitwXivdgykci53/18/2023 Other Reaction(s): Hyperactive behavior, Other Oxycodone-AcetaminophenItching,MjihQyy8907/31/2022 Medications MedicationSigDispense QuantityRefillsLast FilledStart DateEnd DateStatus allopurinol [...] hyperglycemia, without long-term current use of insulin ([facility])TAKE 1 TABLET BY MOUTH [...] hyperglycemia, without long-term current use of insulin ([facility])INJECT 2 MG SUBCUTANEOUSLY WEEKLY 9 mL 5Active febuxostat (Uloric) 40 MG tablet Indications:Type 2 diabetes mellitus with hyperglycemia, without long-term current use of insulin (HCC),Morbid obesity (CMS-HCC),Polyneuropathy due to type 2 diabetes mellitus ([facility])Take 1 tablet (40 mg) [...] Indications:Polyneuropathy due to type 2 diabetes mellitus ([facility])TAKE 1 CAPSULE BY MOUTH IN THE MORNING, EVENING AND BEFORE BEDTIME 270 capsule 5Active Active Problems ProblemNoted DateDiagnosed DateEncounter for long-term current use of medication 08/05/2024Screening PSA (prostate specific antigen)08/05/2024Encounter for preoperative udhzdcpysu12/02/2025 Assessment & Plan (07/15/2024 9:48 AM EST): Able to proceed with upcoming surgery at low risk for complications. History of DM but controlled with medication. No CAD or HTN. Not having chest pain or palpitations. Recommend routine PAT. Seasonal allergic rhinitis due to axkxfn0201/12/2024 Assessment & Plan (01/12/2025 9:44 AM EDT): Symptoms controlled with medication and continue. Assessment & Plan (01/12/2024 9:44 AM EDT): Symptoms controlled with medication and continue. Primary bmhyzuqc65/01/2024 Assessment & Plan (01/12/2025 9:43 AM EDT): [...] and continue neurontin. Primary osteoarthritis of knees, tqtmflirx75/10/2024nnual physical exam 07/23/2023 Assessment & Plan (07/15/2024 [...] daily Aspirin therapy. DDD (degenerative disc disease), konxpl4006/26/2023 Assessment & Plan (01/12/2025 9:43 AM EDT): Pain stable and follow with pain management. Assessment & Plan (01/12/2024 9:44 AM EDT): Pain stable and follow with pain management. Qrvtwrpxxxyi43/14/2023 Assessment & Plan (07/15/2024 9:51 AM EST): Due for labs. Arthritis, gouty108/27/2022 Assessment & Plan (01/12/2025 9:43 AM EDT): No flares and continue allopurinol. Assessment & Plan (01/12/2024 9:43 AM EDT): No flares and continue allopurinol. Male pnyuptgmthcw15/14/2023NAFL (nonalcoholic fatty liver)06/26/2023lass 2 severe obesity due [...] with hyperglycemia, without long-term current use of bshgyvo3006/26/2023 Assessment & Plan (01/12/2025 9:44 AM EDT): [...] Stick to ADA diet and limit carbs. Xpjkqmhqhuit86/03/2023ge-related nuclear cataract of both eyes03/10/2023 Resolved Problems [...] RecordedSex Assigned at BirthNot on file Legal HjzHqhw1209/25/2022 7:24 PM EDTGender IdentityNot on fileSexual Orientation Not on file Last Filed Vital Signs Vital SignReadingTime TakenCommentsBlood Uiwfzbnx190/8401/12/2025 8:53 AM EDT Trdqn502501/12/2025 8:53 AM RBBZtlptwjrktb43.2 ??C (97.1 ??F)01/12/2025 8:53 AM EDTRespiratory Aeeo865901/12/2025 8:53 AM EDTOxygen Puujjcupbr54%01/12/2025 8:53 AM EDTInhaled Oxygen Concentration--Tmrjzf055 kg (293 lb)01/12/2025 8:53 AM EDT Fpqlrs352 cm (6' 2 )01/12/2025 8:53 AM EDTBody Mass Index37.62001/12/2025 8:53 AM EDT Plan of Treatment Health MaintenanceDue DateLast DoneCommentsCT Zaibuhbnbakr98/09/1957FIT-DNA 1955FIT1955FOBT1955 6500Pgodzczixxziy60/09/1957Pneumococcal Vaccine: 65+ Years (2 of 2 - PCV)OVID-19 Vaccine (2024- season)/, 04/20/2023, 04/20/2023, Additional history existsInfluenza Vaccine (#1)/01/2024, 04/12/2023, 04/17/2022, Additional history zitqkdUeskfmomfxs73/02/202701/08/2016Colorectal Cancer Swdozwisc65/02/2027 Insurance Care Teams Team MemberRelationshipSpecialtyStart DateEnd Date Tulio Madrid MD PCP - GeneralFamily Medicine01/12/24
--- OUTSIDE RECORDS SUMMARY | 2025-06-29 07:56 | XMS_ITS | Patient Health Record ---
Author Organization [facility] [place] Address [address] [place] [address] Care Team Providers Care Dietetic Technician Registered Name Role Phone None, Unknown or Primary Care Provider Unavailab James Gutierrez Unavailable [phone] Allergies Allergen (clinical drug ingredient) Drug/Non Drug Allergy documented on EMR Reaction Allergy Type Onset Date Status oxycodone Oxycodone Unknown Drug Allergy Active Results Component Value Reference Range Notes PROF CHEM 8 (BAS METB) Reviewed date:08/24/2024 12:52:49 PM Interpretation: Performing Lab: Notes/Report: [facility] , Sodium 143 136-145 mmol/L Potassium4.73.5-5.1 mmol/IHqhyrgti24300-905 mmol/LCarbon Zozjiqd60.421.0-32.0 mmol/LAnion Gap14.8Zmxacxs60921-321 mg/dLBlood Urea Xcmihugy81.07.0-18.0 mg/dL Creatinine1.620.70-1.30 mg/dLEstimated GFR ( Qvlxmsb07>=60 mL/min/1.73m 2 Estimated GFR (Non- Ame43>=60 mL/min/1.73m 2BUN Creatinine Ratio17.3 Calcium7.78.5-10.1 mg/dLPerforming Lab:see noteML - [facility] LBCBC AUTO DIFF Reviewed date:08/24/2024 12:52:49 PM Interpretation: Performing Lab: Notes/Report: [facility] ,White Blood Count13.84.0-11.0 10 3/uLRed Blood Count3.504.70-6.10 10 6/uL Bqxibmesqa24.514.0-18.0 g/uYDinernmpoo75.842.0-54.0 %Mean Corpuscular Vijltx42.4 80.0-94.0 fLMean Corpuscular Lckylxuhps87.925.9-34.0 pgMean Corpuscular HGB Conc 33.029.9-35.2 g/dLRed Cell Distribution Width13.711.0-15.0 %Platelet Zyesj389 150-450 10 3/uLMean Platelet Volume9.29.5-13.5 fLNeutrophils Percent Auto81.1 43.0-75.0 %Lymphocytes Percent Auto8.920.5-60.0 %Monocytes Percent Auto9.11.7- 12.0 %Eosinophils Percent Auto0.10.9-7.0 %Basophils Percent Auto0.10.2-2.0 % Immature Granulocytes Pct Auto0.70.0-0.5 %Neutrophils Absolute Auto11.21.4-6.5 10 3/uLLymphocytes Absolute Auto1.21.2-3.8 10 3/uLMonocytes Absolute Auto1.30.3- 0.8 10 3/uLEosinophils Absolute Auto0.00.0-0.7 10 3/uLBasophils Absolute Auto0.0 0.0-0.1 10 3/uLImmature Granulocytes Abs Auto0.090.00-0.03 10 3/uLPerforming Lab:see noteML - [facility] Reason For Referral No Information Medications [...] due t o type 2 diabetes mellitus (366315519) Type 2 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) ActiveconfirmedProblemFoot ulcer due to type 2 diabetes mellitus (5115078949627) Type 2 diabetes mellitus with foot ulcer (E11.621)ActiveconfirmedProblemAcquired hallux valgus (15045597)Hallux valgus (acquired), left foot (M20.12)Active confirmedProblemAcquired hallux rigidus (6389404)Hallux rigidus, left foot (M20.22)ActiveconfirmedProblemPseudarthrosis after fusion or arthrodesis (297477037)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)Activeconfirmed ProblemPain associated with internal prosthetic device (disorder) (360485294) Pain due to internal orthopedic prosthetic devices, implants and grafts, initial encounter (T84.84XA)ActiveconfirmedProblemHistory of arthrodesis (094509507) Arthrodesis status (Z98.1)ActiveconfirmedProblemAcquired hallux rigidus (2355194)Acquired hallux rigidus of left foot (M20.22)ActiveconfirmedProblem Delayed healing of surgical wound (finding) (615727136)Delayed surgical wound healing (T81.89XA)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
--- OUTSIDE RECORDS SUMMARY | 2025-06-29 07:56 | XMS_ITS | Patient Health Record ---
Author Organization [facility] Address [address] [place] [address] Care Team Providers Care Nursing Services Manager Name Role Phone Tulio Madrid Primary Care Provider Daniele Ruffin Unavailable [phone] Results Component Value Reference Range Notes MRI Knee Surg.Navigate or Pl an ONLY Left (Not yet reviewed by provider) Interpretation: Performing Lab: Notes/Report: Patient Name: Carlos Locke HISTORY: Arthritis of the left knee. Preoperative planning. XR KNEE LEFT (3 VIEWS) (Not yet reviewed by provider) Interpretation: Performing Lab: Notes/Report: EXAM: XR KNEE LEFT (3 VIEWS) Performed at: [address] [address] XR Knee 1 or 2 [...] Notes/Report: Primary Insurance Company: [employer] Surgeon/Assist:ANTHONY/VAHE Mendoza [facility] Time: 08/09/2024 @ 9 [facility] arrival time day of:7:00 A[facility]urgery End Time:12:00Procedure: LEFT TOTAL KNEE ARTHROPLASTYSpecial Equipment:[employer] VISIONEERC-Arm: YESDiagnosis:OSTEOARTHRITIS OF LEFT KNEEAdmission Type:OPAnesthesia Type/CPNB: GENERAL/KGQBNSct03 HR OBSPost-op Appointment Date:08/23/24 @ 2 PMLatex AllergyNO Lab Location:[facility] Date/Time:07/20/2024 @ 9 [facility] Date/ Lamination Builder:ISMAEL Shell & Physical Appointment Date/:07/26/24Pre-op labs/Chest Order:CBC WI,CMP,MRSA,UA WITH C AND S, URINE NICOTINE,CXR,EKGHad or have MRSA/Direct contact w MRSA pt/HCWNOHad dental problems/Yes-no/type:NOXR Knee Standing AP Bilateral (Not yet reviewed by provider) Interpretation: Performing Lab: Notes/Report: Patient Name: Carlos Farrar Ilya EXAM: XR Knee Standing AP BilateralXR Knee Standing AP Bilateral (Not yet reviewed by provider) Interpretation: Performing Lab: Notes/Report: Patient Name: Carlos Locke EXAM: XR Knee Standing AP Bilateral Reason For Referral Reason APPROVED WILFRID... 08/09...PLEASE PRECERT LEFT TOTAL KNEE REPLACEMENT WITH [facility] AT [facility] Diagnosis 1 Primary osteoarthrit is of left knee (M17.12) Referral Organization [facility] Referring Provider First Name Daniele Referring Provider Last Name Anthony Referring Provider Speciality Orthopedic Surgery Referred Organization [facility] Referred Provider Daniele Valencia Referred Address [address] [place], [place],[address], Referred Provider Specialty Orthopedic S urgery Procedure 1 Arthroplasty Knee To clare Med/Lat Compartments ([id number]) General Notes Ismael Mariee 2024 09:43:18 AM >Juan Alberto Amber 07/23/2024 12:38:24 PM > AUTH IS PENDING WITH PRABHA. FORM AND CLINICALS WERE FAXED. FORM IN CHART.Juan Alberto Amber 07/26/2024 02:03:05 PM > AUTH WAS APPROVED PER ADRIENNEO. APPROVED DATES ARE FROM 07/23/2024-09/20/2024. AUTH #[id number]. AUTH IN CHART. PER AVAILITYWILFRID IS ACTIVE OF 07/14/2022. FAXED TO [facility]. Referral Priority Routine Medications Medication SIG (Take, [...] in the past year?Monthly or less (1 point)Obtzmy6YwuuqgipmsbgjoVzaoykqm Tobacco Control (Standard) Question Answer Notes Tobacco use: Nonsmoker Problems Problem Type SNOMED Code ICD Code Onset Dates Problem Status W/U Status Risk Notes Problem Osteoarthritis of knee (96246042 7) Primary osteoarthritis of left knee (M17.12) ActiveconfirmedProblemHistory of musculoskeletal operation (864242625)Aftercare following joint replacement surgery (Z47.1)ActiveconfirmedProblemArtificial knee joint present (072329970448)Presence of left artificial knee joint (Z96.652) ActiveconfirmedProblemBilateral arthritis of knees (8282855901733646)Primary osteoarthritis of knees, bilateral (M17.0)ActiveconfirmedProblemPain of left knee joint (finding) (233503920307416)Pain in left knee (M25.562)Activeconfirmed ProblemPain of right knee region (finding) (494056598188634)Pain in right knee (M25.561)Activeconfirmed Vital Signs Height 6'1 in 01/31/2025 Fruxhs331 lbs5BMI37.9901/31/2025 Encounters Encounter Location Date Provider Diagnosis [facility] [address] [place] [address] 07/26/2024 Daniele Valencia Primary osteoarthrit is of left knee M17.12 [facility] [address] [place] [address] 08/23/2024 Daniele Valencia Primary osteoarthrit is of left knee M17.12 [facility] [address] [place] [address] 09/06/2024 Daniele Valencia Aftercare following joint replacement surgery Z47.1 and Presence of left artificial knee joint Z96.652 [facility] [address] [facility] [place] [address] [place] [address] 10/04/2024 Daniele Valencia Aftercare following joint replacement surgery Z47.1 and Presence of left artificial knee joint Z96.652 [facility] [address] [facility] [place] [address] [place] [address] 12/20/2024 Daniele Valencia Aftercare following joint replacement surgery Z47.1 and Presence of left artificial knee joint Z96.652 [facility] Office [address] [place] [address] 01/31/2025 Daniele Valencia Aftercare following joint replacement surgery Z47.1 and Presence of left artificial knee joint Z96.652 [facility] [address] [place] [address] 08/23/2024 Daniele Valencia Primary osteoarthrit is of left knee M17.12 ; Presence of left artificial knee joint Z96.652 and Aftercare following joint replacement surgery Z47.1 [facility] [place] [address] [place] [address] 08/26/2024 Daniele Valencia Aftercare following joint replacement surgery Z47.1 [place] [address] [place] [address] 09/13/2024 Daniele Valencia Aftercare following joint replacement surgery Z47.1 Assessments Encounter Date Diagnosis (ICD Code) Assessment Notes Treatment Notes Treatment Clinical Notes Section Notes 07/26/2024 Primary osteoarthritis of left k nee (ICD-10 - M17.12) Left knee kkwxtibiessmyz23/10/2025Primary osteoarthritis of left knee (ICD-10 - M17.12)08/23/2024Primary osteoarthritis of left knee (ICD-10 - M17.12)08/23/2024 Presence of left artificial knee joint (ICD-10 - Z96.652)08/26/2024ftercare following joint replacement surgery (ICD-10 - Z47.1)09/06/2024ftercare following joint replacement surgery (ICD-10 - Z47.1)Status post left total knee gbuyyvdruflh52/03/2025ftercare following joint replacement surgery (ICD-10 - Z47.1)10/04/2024ftercare following joint replacement surgery (ICD-10 - Z47.1) Status post left total knee zialnianhgsv67/09/2025ftercare following joint replacement surgery (ICD-10 - Z47.1)Status post left total knee arthroplasty. 01/31/2025ftercare following joint replacement surgery (ICD-10 - Z47.1)Right knee OA01/31/2025Presence of left artificial knee joint (ICD-10 - Z96.652)Right knee OA12/20/2024Presence of left artificial knee joint (ICD-10 - Z96.652)Status post left total knee arthroplasty.10/04/2024Presence of left artificial knee joint (ICD-10 - Z96.652)Status post left total knee kkzwmyjviqpr68/24/2025 Presence of left artificial knee joint (ICD-10 - Z96.652)Status post left total knee gmguxjtxqjhq92/10/2025ercare following joint replacement surgery (ICD-10 - Z47.1)07/26/2024OtherPatient is a 68-year-old male presenting today for his left knee osteoarthritis. He is exhausted conservative management. Do believe total knee arthroplasty can provide him with some benefit. Discussed risk and benefits of surgery in detail. No guarantees send and signed in the office today. Plan for left total knee arthroplasty.Left knee bbjurxnkunlpzn03/24/2025 OtherPatient overall doing very well today in regard to his left total knee arthroplasty. Mobilizing quite well. Range of motion he is fairly stiff but overall progressing appropriately. Continue DVT prophylaxis. Follow-up in 1 month for clinical exam no x-rays.Status post left total knee arthroplasty 10/04/2024OtherPatient doing well today 6 weeks postop. Range of motion improving. Continue with aggressive PT. Hemay start to drive. Will see him back in the office in 6 weeks with x-raysStatus post left total knee arthroplasty 12/20/2024OtherPatient doing quite well today in regards to [...] Order Date Knee, left 3v AP, Lat, [place] - 92806 0 01/31/2025 PT - Evaluate and Treat, as directed, 2 - 3 times a week x 4 - 6 weeks 07/26/2024 XR Foreign Body Loc Eye Bilateral 2024 XR Knee 1 or 2 Views Left 07/23/2024 XR Knee Standing AP Bilateral 07/26/2024 XR Knee Standing AP Bilateral 07/26/2024 SCC- KNEE 4 VIEW LEFT-34331 06/21/2024 XR KNEE LEFT (3 VIEWS) 01/31/2025 SCC- KNEE 4 VIEW RIGHT 94698 06/21/2024 SCC- KNEE 2 VIEW LEFT - 33893 09/06/2024 SCC- KNEE 2 VIEW LEFT - 88666 10/04/2024 SCC- KNEE 2 VIEW LEFT - 66752 12/20/2024 MRI Knee Surg.Navigate or Plan ONLY Left 07/23/2024 Hip to ankle Lt -95641 visioneer 024 MRI : Knee, Left. [employer] shanita including long leg films 80959 06/21/2024 Insurance Providers Payer Name Payer Address Payer Phone Subscriber Number Group Number Insured Name Patient Relationship to Insured Coverage Start Date Coverage End Date [employer] [address] [place] [address] [id number] ILA LOCKE Spouse - patient is the spouse of the insured 5 Medications Administered Medication Instructions Date of Administration Dosage Notes BUPIVACAINE mLDepo-Yqtoqe79 pNsfgmkdmhg78/26/20244 mL
--- OUTSIDE RECORDS SUMMARY | 2025-06-29 07:56 | XMS_ITS | Clinical Summary ---
Author Organization [facility] Address [address] [place] [address] Care Team Providers Care Cluster Bore Operator Name Role Phone Tulio Madrid MD Primary Care Provider [phone] Allergies Active AllergyReactionsCriticalityNoted XrkcDaoiwedgOucgwbetgAptpk99/18/2023 Oxycodone-Rvkhcynjaoxai44/18/2023 Medications MedicationSigDispense QuantityRefillsLast FilledStart DateEnd DateStatus atorvastatin (Lipitor) 20 mg tablet atorvastatin 20 mg tablet TAKE 1 TABLET BY MOUTH EVERYDAY AT RIGKNRJ5104/25/2020Active colchicine 0.6 mg tablet Take 0.6 mg [...] 2 TABLETS BY MOUTH EVERY DAY AT WWKQWLC8907/11/2022ctive Active Problems ProblemNoted DateDiagnosed DateBenign prostatic hyperplasia with urinary /18/2023History of colonic fsbydz1107/31/2022Hydronephrosis with renal and ureteral calculus sgfwebfpruh86/18/2023Liver mass07/31/2022Long term current use of anticoagulant eqhkyls7207/31/2022Neoplasm of uncertain behavior of liver and biliary yapcwgkq77/18/3412Fupxgzsf27/18/6964Rdtzph08/31/2022ack pain 12/11/2021iabetes uswqzwop60/31/1214Zxwo72/31/2022History of pulmonary embolism 12/11/2021 Assessment & Plan (07/31/2022 2:19 PM EST): Currently stable History of severe acute respiratory syndrome coronavirus 2 (SARS-CoV-2) disease 12/11/20212392Ttsfyytladrwjz66/31/2022 Assessment & Plan (07/31/2022 2:17 PM EST): Lipid abnormalities are currently well controlled with lipitor 20 mg- LDL currently 58.6 on labs 07/26/2022 Liver function 04/2022 were normal Hypertensive qrylcgqn03/31/2022 Assessment & Plan (07/31/2022 2:18 PM EST): Hypertension is well controlled 114/64 Continue lisinopril 5 mg Recent CR elevated 1.59- his cr typically has been 1.2-1.4 - He has been on antibiotics for Lt foot infection- DFU with wound care. Nlbcefs7812/11/2021bstructive sleep apnea dybgzorl43/31/2022 Family History Medical HistoryRelationNameCommentsStrokeFatherRelationNameStatusCommentsFather Social History Tobacco UseTypesPacks/DayYears UsedDateSmoking Tobacco: NeverSmokeless Tobacco: Never Tobacco Cessation:Counseling Given: Not Answered Alcohol UseStandard Drinks/WeekCommentsYes0 (1 standard drink = 0.6 oz pure alcohol)occasionalUT Safety & EnvironmentAnswerDate RecordedFear of Current or Ex-PartnerNot on file09/04/2023Emotionally AbusedNot on file09/04/2023hysically AbusedNot on file09/04/2023Sexually AbusedNot on file09/04/2023hysically or Sexually AbusedNot on file09/04/2023Sex and Gender InformationValueDate Recorded Sex Assigned at BirthNot on fileLegal QllKlfh5101/09/2022 9:30 PM EDTGender IdentityNot on fileSexual OrientationNot on file Last Filed Vital Signs Vital SignReadingTime TakenCommentsBlood Kqyanuna778/6401 1:39 PM EST Byxcb599507/31/2022 1:39 PM ESTTemperature--Respiratory Rate--Oxygen Cwcwdawmdy13% 07/31/2022 1:39 PM ESTInhaled Oxygen Concentration--Nwidcf389 kg (308 lb) 07/31/2022 1:39 PM JDTAxyhjl854.4 cm (6' 1 )07/31/2022 1:39 PM ESTBody Mass Index40.64007/31/2022 1:39 PM EST Plan of Treatment Health MaintenanceDue DateLast DoneCommentsCT Kzowloullotd53/09/1957Colonoscopy 1956Colorectal Cancer Jrjgirnkg92/09/1957Diabetes: Hemoglobin A1C 1956FIT-DNA1956FIT1956FOBT1956Medicare Annual Wellness (AWV)1955 1566Taeoszkfmhiut47/09/1957Diabetes: Retinopathy Qedlcrjyw14/09/1967 Depression Ulrevbtga65/09/1969Diabetes: Urine Protein Crhgbuyej30/09/1976Adult Luxhvhk7708/22/1978Zoster Vaccines (1 of 2)2006Fall Risk Bvfuiqqft90/09/2022 Pneumococcal Vaccine: 50+ Years (2 of 2 [...] Date Tulio Madrid MD [address] [place] [address] PCP - [facility]07/05/24
--- NOTE | 2025-06-29 08:12 | PM.CN ---
Consult Note: HPI Data of Consult Patient: known to practice within the last 3 years Consult date: 06/29/25 Requesting Physician: Gracie Chaudhry NP Primary Care Provider: Tulio Madrid MD Consult Narrative Reason for consult: chronic pain Narrative: Warner Caraballo a pleasant 69 year old male with chronic low back pain presents for evaluation. Notes pain in low back 0/10. notes increased pain with standing, walking, lifting, bending, ADLs. improves with sitting, lying down, hot tub, sleep. Pt has longstanding low back pain > 5 years unresponsive to greater than 6 weeks of PT and HEP, heat, ice, tylenol, NSAIDs. pt found benefit to prior lumbar RFAs, no recent imaging. prior lumbar xray consistent with multilevel degenerative changes and mild lumbar spondylolisthesis. pt denies numbness, tingling, weakness to BLE. utilizing diclofenac, gabapentin, flexeril, tylenol. tramadol with mild relief. denies side effects. pt following up after bilateral L4-5 L5-S1 MBB #1 which he noted less than 80% improvement while anesthetized, on 06-20-25 underwent bilateral L4-5 TFESI with minimal ongoing relief. noted mild to moderate relief for 1.5 weeks per pt. cc:: CC: Gracie Chaudhry NP Review of Systems ROS Musculoskeletal Denies: back pain, extremity pain or joint pain [facility] Medical History (Updated 06/29/25 @ 08:14 by Gracie Chaudhry NP) Ureteral stone ?N20.1 - Calculus of ureter (ICD-10) Insomnia ?G47.00 - Insomnia, unspecified (ICD-10) Seasonal allergic rhinitis ?J30.2 - Other seasonal allergic rhinitis (ICD-10) Polyneuropathy due to type 2 diabetes mellitus ?E11.42 - Type 2 diabetes mellitus with diabetic polyneuropathy (ICD-10) Nonalcoholic fatty liver ?K76.0 - Fatty (change of) liver, not elsewhere classified (ICD-10) Hypogonadism Degenerative disc disease, lumbar ?M51.369 - Other intervertebral disc degeneration, lumbar region without mention of lumbar back pain or lower extremity pain (ICD-10) Pseudophakia ?Z96.1 - Presence of intraocular lens (ICD-10) Cataract ?H26.9 - Unspecified cataract (ICD-10) Diabetes mellitus ?E11.9 - Type 2 diabetes mellitus without complications (ICD-10) Knee pain ?M25.569 - Pain in unspecified knee (ICD-10) Back pain ?M54.9 - Dorsalgia, unspecified (ICD-10) Hypertension ?I10 - Essential (primary) hypertension (ICD-10) Gout ?M10.9 - Gout, unspecified (ICD-10) Sleep apnea ?G47.30 - Sleep apnea, unspecified (ICD-10) Hyperlipidemia ?E78.5 - Hyperlipidemia, unspecified (ICD-10) Myofascial pain ?M79.18 - Myalgia, other site (ICD-10) Bilateral primary osteoarthritis of knee ?M17.0 - Bilateral primary osteoarthritis of knee (ICD-10) Pulmonary embolism (07/2020) ?I26.99 - Other pulmonary embolism without acute cor pulmonale (ICD-10) COVID-19 (07/2020) ?U07.1 - COVID-19 (ICD-10) Kidney stones ?N20.0 - Calculus of kidney (ICD-10) Knee osteoarthritis ?M17.9 - Osteoarthritis of knee, unspecified (ICD-10) Fusion, toes ?Q70.20 - Fused toes, unspecified foot (ICD-10) Surgical History History of total knee arthroplasty (08/23/24) ?Z96.659 - Presence of unspecified artificial knee joint (ICD-10) H/O sinus surgery ?Z98.890 - Other specified postprocedural states (ICD-10) History of vasectomy ?Z98.52 - Vasectomy status (ICD-10) S/P cataract extraction and insertion of intraocular lens ?Z98.49 - Cataract extraction status, unspecified eye (ICD-10) ?Z96.1 - Presence of intraocular lens (ICD-10) History of radiofrequency ablation (RFA) of nerve of lumbar spine ?Z98.890 - Other specified postprocedural states (ICD-10) S/P epidural steroid injection ?Z92.241 - Personal history of systemic steroid therapy (ICD-10) History of foot surgery ?Z98.890 - Other specified postprocedural states (ICD-10) History of tonsillectomy and adenoidectomy ?Z90.89 - Acquired absence of other organs (ICD-10) S/P right knee arthroscopy ?Z98.890 - Other specified postprocedural states (ICD-10) S/P left knee arthroscopy ?Z98.890 - Other specified postprocedural states (ICD-10) Family History Other Family history of diabetes mellitus Family history of hypertension Family history of prostate cancer Family history of stroke Social History Within the past year, how often did you have a drink containing alcohol: monthly or less Smoking status: Never smoker Non-prescribed substance use: denies use Previous occupational history: RETIRED Highest level of school completed/degree received: high school graduate Meds Home Medications and Allergies Home Medications ?Medication ?Instructions ?Recorded ?Confirmed ?Type acetaminophen 500 mg tablet 1,000 mg PO Q6H PRN pain 01/06/23 06/28/25 History (Acetaminophen Extra Strength) ascorbic acid (vitamin C) 500 mg 500 mg PO BID 01/06/23 06/28/25 History tablet (C-500) cholecalciferol (vitamin D3) 25 1,000 unit PO BID 01/06/23 06/28/25 History mcg (1,000 unit) tablet (Vitamin D3) colchicine 0.6 mg tablet 0.6 mg PO TID 01/06/23 06/28/25 History febuxostat 40 mg tablet 40 mg PO DAILY 01/06/23 06/28/25 History lisinopril 5 mg tablet 5 mg PO DAILY 01/06/23 06/28/25 History metformin 500 mg tablet,extended 500 mg PO DAILY 01/06/23 06/28/25 History release 24 hr allopurinol 300 mg tablet 300 mg PO DAILY 07/20/24 06/28/25 History semaglutide 2 mg/dose (8 mg/3 mL) 2 mg subcut QWEEK 07/20/24 06/28/25 History subcutaneous pen injector (Ozempic) testosterone cypionate 200 mg/mL 200 mg IM Q14D 07/20/24 06/28/25 History intramuscular oil trazodone 50 mg tablet 50 mg PO .QHS 08/23/24 06/28/25 History diclofenac sodium 50 mg 50 mg PO BID #60 tabs 11/25/24 06/28/25 Rx tablet,delayed release tramadol 50 mg tablet 50 mg PO BID PRN pain #60 tabs 05/04/25 06/28/25 Rx cyclobenzaprine 10 mg tablet 10 mg PO HS 05/18/25 06/28/25 History gabapentin 300 mg capsule 300 mg PO TID 06/28/25 06/28/25 History Allergies Allergy/AdvReac Type Severity Reaction Status Date / Time oxycodone AdvReac hyperactivi Verified 06/28/25 11:11 ty Exam Constitutional Documenting provider has reviewed patient's vital signs: yes Common normals: no apparent distress, oriented x3 and alert General appearance: cooperative HENMT Common normals: normocephalic, hearing grossly normal bilaterally and moist oral mucous membranes Head and scalp: normocephalic Eye Common normals: PERRL Pupil: PERRL Neck & C-Spine Common normals: full ROM General: normal visual inspection Chest Common normals: inspection of chest normal Respiratory Common normals: normal respiratory effort, no retractions and no use of accessory muscles Back & Pelvis Lumbar spine/lower back: ROM limited and straight leg raise negative bilaterally; no pain with ROM and no lumbar spinal tenderness Sacroiliac joints: SI joints normal Other: strength 5/5 in BLE sensation intact BLE Extremity Common normals: normal to inspection and full ROM Neuro Common normals: oriented x3 Sensorium/orientation: alert Psych Common normals: mental status grossly normal, thought process normal, cooperative, affect normal, speech normal and activity/motor behavior normal Speech: normal speech Thought process: normal thought process Results Additional Findings Additional findings: If on a controlled substance or opioids, I have checked an [place]AR[place] report on this patient and there are no aberrancies noted in the prescribing history.??If on a controlled substance or opioid a drug screen was completed and reviewed within the last year, and if there has not been a drug screen completed we ordered one today to monitor higher risk, state monitored pain medication use. As part of providing excellent, safe, comprehensive care, the following was completed at our patient's visit: 1. A medication reconciliation and review to ensure accurate knowledge of current/active medications, including asking our patients to inform us about any dewo-eqj-qnmxpzm medications or herbal remedies/nutritional supplements/alternative remedies. 2. A review to specifically ensure our patients have had annual screening for screening for depression, screening for tobacco use, and screening for unhealthy alcohol use. For concerning screenings had a discussion with the patient, provided patient education, and recommended follow-up with primary care provider when appropriate. If patient noted with a risk of falling, they received education on strength, gait, and balance training to prevent future risk of falling. Portions of this note may have been carried over from the previous visit and updated as appropriate. Please note this office utilizes paper charting in addition to the electronic medical record. A list of current medications, vitals, and PMH is available there as the clinical staff outside of myself do not have access to [employer] charting during the clinic day operations. As part of providing quality comprehensive care the current medications, vitals, and PMH were reviewed in the paper chart. Assessment and Plan Assessment and Plan (1) Lumbar stenosis with neurogenic claudication: (2) Lumbar spondylosis: (3) Chronic use of opiate for therapeutic purpose: Assessment and Plan: pt notes mild to moderate pain relief > 6 hours with each dose. denies side effects (4) Myalgia, other site: Plan The patient has had over 3 months of moderate to severe low back pain with functional impairment and inadequate response to conservative care including NSAIDS (unless there are contraindication such as concurrent blood thinners), multiple oral or topical pain medications, and home exercise program/physical therapy.? Patient has completed >6 weeks of guided home exercise program and/or formal physical therapy program without relief of their symptoms.? maintain diclofenac 50mg bid prn pain with food, tramadol 50mg BID PRN moderate-severe pain 60 tabs to last at least 30 days, gabapentin 600mg TID, and change flexeril 10mg hs prn pain/spasms. continue HEP as tolerated. notes upcoming surgery for kidney stones, advised to stop tramadol through our office if prescribed opioids from surgeon, pt verbalized understanding. overall pain well controlled, NOAH 2%. defer additional interventional therapy. defer NS consultation. f/u 3 months for medication management. sooner if needed
== END 2025-06-29 07:53 | disposition home or self-care (01) ==
LOC: PM 07:52
PROVIDERS: PCP Family Medicine; Visit Provider Nurse Practitioner
DX: M48.062 Spinal stenosis, lumbar region with neurogenic claudication (principal); M47.816 Spondylosis without myelopathy or radiculopathy, lumbar region; Z79.891 Long term (current) use of opiate analgesic; M79.18 Myalgia, other site
CPT/HCPCS: G0463

== ENCOUNTER 2025-07-05 06:58 | Day surgery (SDC) | payer MEDICARE, OTHER, SELFPAY ==
--- OUTSIDE RECORDS SUMMARY | 2024-07-27 04:00 | XMS_ITS ---
Author Organization The [facility] in [place] Address [address] [place] [address] Care Team Providers Care Calender Roll Press Operator Name Role Phone None, Unknown or Primary Care Provider Unavailab marylou NealevanJames [phone] REASON FOR VISIT -6 Month Follow Up- Encounters Encounter Location Date Provider Diagnosis [facility] (PODIATRY) [address] [place] [address] [place] [address] 07/27/2024 James Raya Left foot pain M79.672 Assessments Encounter Date Diagnosis (ICD Code) Assessment Notes Treatment Notes Treatment Clinical Notes Section Notes 07/27/2024 Left foot pain (ICD-10 - M79.672 ) Plan Of Treatment Pending Test Test Name Order Date XR Foot LT (3 views) * 07/27/2024 Progress Notes * Warner LOCKE CDOB: [birth year] (69 yo M)Acc No.[id number]:07/27/2024 UNLOCKED PROGRESS NOTE Follow Up Patient: Etelvina BOND Warner Farrar :?James Raya DPVirgilio, MSDOB:1955???Age: 68 Y???Sex:MaleDate:07/27/2024Phone:[phone]:JARETH DUNCAN [id number]:Unknown or None Subjective: * Chief Complaints: * 1 . -6 Month Follow Up-. * Medical History: Objective: * Vitals: Assessment: * Assessment: 1.?Left foot pain - M79.672??? Plan: * Treatment: ?Imaging: XR Foot LT (3 views) * * * Electronic signature of James Raya DPM on 07/05/2025 at 07:02 AM ESTSign off status: PendingVisit Status:?CANC (Cancelled) * Provider: Supriya Raya DPM, MS Date: 0 07/27/2024 Generated for Printing/Faxing/eTransmitting on:?07/05/2025 07:02 AM EST
--- OUTSIDE RECORDS SUMMARY | 2024-08-23 09:00 | XMS_ITS ---
Author Organization [facility] Address [address] [place] [address] Care Team Providers Care Senior Network Architect Name Role Phone Tulio Madrid Primary Care Provider Julissa chris Daniele Valencia Unavailable [phone] REASON FOR VISIT 1ST POST OP LEFT TKA 08/09 Problems Problem Type SNOMED Code ICD Code Onset Dates Problem Status W/U Status Risk Notes Problem History of musculosk eletal operation (003844335) Aftercare following joint replacement surgery (Z47.1) ActiveconfirmedProblemArtificial knee joint present (594439104054)Presence of left artificial knee joint (Z96.652)Activeconfirmed Encounters Encounter Location Date Provider Diagnosis [facility] Office [address] [place] [address] [place] [address] 08/23/2024 Daniele Valencia Aftercare following joint replacement [...] Date SCC- KNEE 2 VIEW LEFT - 63672 08/23/2024 Progress Notes * CARLOS LOCKE CDOB: [birth year] (69 yo M)Acc No.[id number]:08/23/2024 Progress Notes Patient: Etelvina BONDCARLOS :?Daniele Valencia, DODOB:1955???Age:69 Y ???Sex:MaleDate:08/23/2024Phone:[phone]:[address], [id number]:Tulio Madrid Subjective: * Chief Complaints: * 1 . 1ST POST OP LEFT TKA 08/09. * Medical History: Objective: * Vitals: Assessment: * Assessment: 1.?Aftercare following joint replacement surgery - Z47.1 (Primary)???2.?Presence of left artificial knee joint - Z96.652??? Plan: * Treatment: ?Imaging: SCC- KNEE 2 VIEW LEFT - 984437.?Presence of left artificial knee joint?Imaging: SCC- KNEE 2 VIEW LEFT - 86801 Forms: * Images: * Electronic signature of Daniele Valencia DO on 07/05/2025 at 07:03 AM ESTSign off status: Pending * Provider: Noa Valencia DO Date: 0 08/23/2024 Generated for Printing/Faxing/eTransmitting on:?07/05/2025 07:03 AM EST
--- OUTSIDE RECORDS SUMMARY | 2024-11-22 08:10 | XMS_ITS ---
Author Organization [facility] Address [address] [place] [address] Care Team Providers Care Plant Guard Name Role Phone Tulio Madrid Primary Care Provider Daniele Ruffin Unavailable [phone] REASON FOR VISIT LEFT KNEE RECHECK DOS 02.10 Encounters Encounter Location Date Provider Diagnosis [facility] Office [address] [place] [address] [place] [address] 11/22/2024 Daniele Valencia Aftercare following joint replacement surgery Z47.1 Assessments Encounter Date Diagnosis (ICD Code) Assessment Notes Treatment Notes Treatment Clinical Notes Section Notes 11/22/2024 Aftercare following joint replac ement surgery (ICD-10 - Z47.1) Plan Of Treatment Pending Test Test Name Order Date SCC- KNEE 2 VIEW LEFT - 36194 11/22/2024 Progress Notes * CARLOS LOCKE CDOB: [birth year] (69 yo M)Acc No.[id number]:11/22/2024 Patient:?CARLOS LOCKE :?Daniele Valencia, DODOB:1955???Age:69 Y ???Sex:MaleDate:11/22/2024Phone:[phone]:JARETH DUNCAN [id number]:Tulio Madrid Subjective: * Chief Complaints: * 1 . LEFT KNEE RECHECK DOS 02.10. * Medical History: Objective: * Vitals: Assessment: * Assessment: 1.?Aftercare following joint replacement surgery - Z47.1 (Primary)??? Plan: * Treatment: ?Imaging: SCC- KNEE 2 VIEW LEFT - 76777 * Procedure Codes: 7 3560 X-ray Knee, 2 view Forms: * Images: * Electronic signature of Daniele Valencia DO on 07/05/2025 at 07:02 AM ESTSign off status: Pending * Provider: Noa Valencia DO Date: 0 11/22/2024 Generated for Printing/Faxing/eTransmitting on:?07/05/2025 07:02 AM EST
--- OUTSIDE RECORDS SUMMARY | 2025-06-27 23:59 | XMS_ITS | Continuity of Care Document ---
Author Organization [facility] Address [address] [place] [address] Care Team Providers Care Manager User Experience Name Role Phone HARINDER RUGGIERO Primary Care Physician [phone] Encounter FT_AMBFIN [id number] Date(s): 06/27/25 - 06/27/25 [facility] [address] [facility] [place] [address]- Encounter Diagnosis Screening PSA (prostate specific antigen)(Discharge Diagnosis) - 06/27/25 ED (erectile dysfunction)(Discharge Diagnosis) - 06/27/25 Kidney stones(Discharge Diagnosis) - 06/27/25 Hypogonadism male(Discharge Diagnosis) - 06/27/25 Family history of prostate cancer in father(Discharge Diagnosis) - 06/27/25 Discharge Disposition: Home (Routine DC) Attending Physician: Tyler SHIN MD Encounter Type: Clinic Allergies, Adverse Reactions, Alerts SubstanceCriticalitySeverityReactionReaction SeverityStatusOxyCODONE HydrochlorideHyperactive behaviorActive Immunizations Given and Recorded VaccineDateStatusRefusal Reasoninfluenza virus vaccine, ilqysbjahae40/7/24 Recordedinfluenza virus vaccine, wtpoprnvweh23/5/22Recordedinfluenza virus vaccine, inactivated04/07/Recordedinfluenza virus vaccine, jgphfijpecg07/7/20 Recordedinfluenza virus vaccine, ppogozibjug42/3/20Recordedinfluenza virus vaccine, icnuinuyxlm97/8/18Recordedinfluenza virus vaccine, inactivated03/24/18 Recordedinfluenza virus vaccine, mmwunhleydb25/23LrlxdwcaHDKU-PhT-9 mRNA (tozinameran 5y-11y) ela134/8/46FeifspjyNESQ-BcU-8 (COVID-19) mRNAMUL.ORD![id number] 03/23/2291MtiijpnaJMLKViU6 mRNA(zcvjslhsu-jggf-gnwumr) vac10/23/21Recorded pneumococcal 23-valent vxlemkj16/14/24MdopgvvyNHBJ-DuN-9 (COVID-19) mRNA BNT- 162b2 rti85505/06/2163EhorcbkeVWEX-TkE-4 (COVID-19) mRNA BNT-162b2 vaccine 225 mcg/0.45 mL preservative-free intramuscular susp09/18/20Recorded 1Result Comment: covid 19 mRNA ([facility]) 2Result Comment: 2022-05-29: TPV60 Medications atorvastatin 20 mg Tab 20 mg = 1 tab(s), Oral, Daily, Refills(s) 0, High cholesterol Start Date: 04/25/20 Status: Ordered Medication Dispense Status: Completed Total Allowed Fills: 1 Fills Dispensed: 0 colchicine 0.6 mg Tab 0.6 mg = 1 tab(s), Oral, TID, PRN for gout pain, 1 po tid prn for gout pain, # 10 tab(s), Refills(s) 0 Start Date: 11/15/20 Status: Ordered Medication Dispense Status: Completed Quantity: 10.0 Unit: tab(s) Total Allowed Fills: 1 Fills Dispensed: 0 cyclobenzaprine 10 mg Tab Refills(s) 0 Start Date: 11/04/23 Status: Ordered Medication Dispense Status: Completed Total Allowed Fills: 1 Fills Dispensed: 0 diclofenac sodium 50 mg Oral EC Tab Refills(s) 0 Start Date: 11/04/23 Status: Ordered Medication Dispense Status: Completed Total Allowed Fills: 1 Fills Dispensed: 0 febuxostat 40 mg oral tablet 40 mg = 1 tab(s), Oral, Daily, # 30 tab(s), Refills(s) 0, Gout pain Start Date: 04/25/20 Status: Ordered Medication Dispense Status: Completed Quantity: 30.0 Unit: tab(s) Total Allowed Fills: 1 Fills Dispensed: 0 gabapentin 300 mg Cap 300 mg = 1 cap(s), Oral, Once a day (at bedtime), # 30 cap(s), Refills(s) 0, Muscle pain Start Date: 11/15/20 Status: Ordered Medication Dispense Status: Completed Quantity: 30.0 Unit: cap(s) Total Allowed Fills: 1 Fills Dispensed: 0 lisinopril 5 mg, Oral, Daily, Refills(s) 0, High blood pressure Start Date: 04/13/19 Status: Ordered Medication Dispense Status: Completed Total Allowed Fills: 1 Fills Dispensed: 0 metformin 500 mg ER Tab 500 mg = 1 tab(s), Oral, Daily, Refills(s) 0, High blood sugar Start Date: 04/25/20 Status: Ordered Medication Dispense Status: Completed Total Allowed Fills: 1 Fills Dispensed: 0 Ozempic 2 mg/1.5 mL (0.25 mg or 0.5 mg dose) subcutaneous solution 0.5 mg, SubCutaneous, qWeek, Refill(s) 0 Start Date: 04/24/21 Status: Ordered Medication Dispense Status: Completed Total Allowed Fills: 1 Fills Dispensed: 0 Testosterone Cypionate 200 mg/mL intramuscular solution Refills(s) 0 Start Date: 06/03/23 Status: Ordered Medication Dispense Status: Completed Total Allowed Fills: 1 Fills Dispensed: 0 traMADOL 50 mg Tab Refills(s) 0 Start Date: 06/03/23 Status: Ordered Medication Dispense Status: Completed Total Allowed Fills: 1 Fills Dispensed: 0 trazodone 50 mg, Oral, Once a day (at bedtime), Refills(s) 0 Start Date: 05/27/24 Status: Ordered Medication Dispense Status: Completed Total Allowed Fills: 1 Fills Dispensed: 0 Vitamin D3 50,000 International_Unit, BID, Refills(s) 0, Prophylaxis Start Date: 04/25/20 Status: Ordered Medication Dispense Status: Completed Total Allowed Fills: 1 Fills Dispensed: 0 Problem List ConditionConfirmationCourseEffective DatesStatusHealth StatusInformantDorsalgia ConfirmedActiveTubular adenoma of colonConfirmedResolvedTubular adenoma of colon ConfirmedActiveEnlarged prostate with urinary obstructionConfirmedResolvedBPH with urinary obstructionConfirmedResolvedBMI 40.0-44.9, adultConfirmedActive Abnormal abdominal CT scanConfirmedActiveDiabetesConfirmedActiveED (erectile dysfunction)ConfirmedActiveFamily history of prostate cancer in fatherConfirmed ActiveHistory of pulmonary embolismConfirmedActivePersonal history of colonic polypsConfirmedActiveHydronephrosis with renal and ureteral calculus obstruction ConfirmedActiveKidney calculiConfirmedActiveKidney stonesConfirmedActiveLiver massesConfirmedActiveChronic anticoagulationConfirmedActiveHypogonadism male ConfirmedActiveIncreased prostate specific antigen (PSA) velocityConfirmedActive Morbid obesityConfirmedActiveLesion of liver greater than 1 cm in diameter ConfirmedActiveNocturiaConfirmedResolvedScreening PSA (prostate specific antigen)ConfirmedActive Procedures ProcedureDateRelated DiagnosisBody SiteStatusArthroplasty of knee left08/23/24 CompletedCT guided yszedq34/27/21CompletedArthroscopy of kneeCompletedCataracts CompletedH/O: pfmpqmenhGkrutfpcyIbttwhhx1KdvbmdwdlIzhmzxfyflqnnJjmxmawmo 1LIVER. NO SEDATION. 2Toe Social History Social History TypeResponseSmoking StatusNever (less than 100 in lifetime);Never entered on: 06/27/25Birth SexMaleSex Representation [facility] Discharge Instructions Patient Education 06/27/2025 10:00:45 Laser Therapy for Kidney Stones, Care After Laser Therapy for Kidney Stones, Care After After laser therapy for kidney stones, it is common to have: ??? Pain. ??? A burning feeling when you pee (urinate). ??? Small amounts of blood in your pee (urine). ??? A need to pee a lot. ??? Parts of the kidney stone in your pee. ??? Mild discomfort in your back when you pee. You may have this if you had a small mesh tube (stent) placed during the procedure. Follow these instructions at home: Medicines ??? Take wcvp-dej-heweioy and prescription medicines only as told by your health care provider. ??? If you were prescribed antibiotics, take them as told by your provider. Do not stop using the antibiotic even if you start to feel better. ??? Ask your provider if the medicine prescribed to you: ??? Requires you to avoid driving or using machinery. ??? Can cause constipation. You may need to take these actions to prevent or treat constipation: ??? Drink enough fluid to keep your pee pale yellow. ??? Take wmwi-ooi-kdogogd or prescription medicines. ??? Eat foods that are high in fiber, such as beans, whole grains, and fresh fruits and vegetables. ??? Limit foods that are high in fat and processed sugars, such as fried or sweet foods. Activity ??? If you were given a sedative during the procedure, it can affect you for several hours. Do not drive or operate machinery until your provider says that it is safe. ??? Return to your normal activities as told by your provider. Ask your provider what activities are safe for you. General instructions ??? Your provider may recommend that you drink a lot of water for a few hours after your procedure.If you have heart or kidney disease, ask your provider how much you should drink. ??? You may be asked to strain your pee to collect any stone pieces that you pass. Your provider may have these pieces tested. ??? Do not take baths, swim, or use a hot tub until your provider approves. Ask your provider if you may take warm baths to soothe the burning. ??? Keep all follow-up visits. If you have a stent, you will need to go back to your provider to have it removed. Your provider may give you more instructions. Make sure you know what you can and cannot do. Contact a health care provider if: ??? You have pain or a burning feeling that lasts for more than 2 days. ??? You feel nauseous. ??? You vomit more and more often. ??? You have trouble peeing. ??? You have pain that gets worse or does not get better with medicine. ??? You have a fever or shaking chills. Get help right away if: ??? You cannot pee, even when your bladder feels full. ??? You faint. ??? You have chest pain, shortness of breath, or cough up blood. ??? You have: ??? Bright red blood or blood clots in your pee. ??? Severe pain or discomfort. ??? Pain in your abdomen. ??? Swelling in your legs. These symptoms may be an emergency. Get help right away. Call 911. ??? Do not wait to see if the symptoms will go away. ??? Do not drive yourself to the hospital. This information is not intended to replace advice given to you by your health care provider. Make sure you discuss any questions you have with your health care provider. Document Revised: 02/28/2023 Document Reviewed: 02/28/2023 [employer] Patient Education ?? 2023 [employer]. 06/27/2025 10:00:43 Laser Therapy for Kidney Stones Laser Therapy for Kidney Stones Laser therapy for kidney stones is a procedure to break up rock-like masses that form inside the kidneys (kidney stones). It is done using a device that beams a strong light (laser) on the kidney stones. This breaks the stones up into small pieces. These small pieces may leave your body when you pee (urinate) or may be taken out during the procedure. You may need laser therapy if you have kidney stones that are painful or that are stopping you frombeing able to pee. Tell a health care provider about: ??? Any allergies you have. ??? All medicines you are taking, including vitamins, herbs, eye drops, creams, and zoqz-kco-saeceax medicines. ??? Any problems you or family members have had with anesthesia. ??? Any bleeding problems you have. ??? Any surgeries you have had. ??? Any medical conditions you have. ??? Whether you are or may be . What are the risks? Your health care provider will talk with you about risks. These may include: ??? Infection. ??? Bleeding. ??? Allergic reactions to medicines. ??? Damage to: ??? The part of your body that drains pee (urine) from the bladder (urethra). ??? The bladder. ??? The tube that connects the bladder to the kidneys (ureter). ??? Urinary tract infection (UTI). ??? Urethral stricture. This is when the urethra is narrowed by scarring. ??? Trouble peeing. ??? Blockage of the kidney. This may be caused by a piece of kidney stone. What happens before the procedure? When to stop eating and drinking Follow instructions from your provider about what you may eat and drink. These may include: ??? 8 hours before the procedure ??? Stop eating most foods. Do not eat meat, fried foods, or fatty foods. ??? Eat only light foods, such as toast or crackers. ??? All liquids are okay except energy drinks and alcohol. ??? 6 hours before the procedure ??? Stop eating. ??? Drink only clear liquids, such as water, clear fruit juice, black coffee, plain tea, and sportsdrinks. ??? Do not drink energy drinks or alcohol. ??? 2 hours before the procedure ??? Stop drinking all liquids. ??? You may be allowed to take medicines with small sips of water. ??? If you do not follow your provider's instructions, your procedure may be delayed or canceled. Medicines ??? Ask your provider about: ??? Changing or stopping your regular medicines. These include any diabetes medicines or blood thinners you take. ??? Taking medicines such as aspirin and ibuprofen. These medicines can thin your blood. Do not take them unless your provider tells you to. ??? Taking rgfh-cbz-lndghog medicines, vitamins, herbs, and supplements. Tests ??? You may have a physical exam before the procedure. You may also have tests done. These may include: ??? Imaging tests. ??? Blood or pee tests. Surgery safety ??? Ask your provider: ??? How your surgery site will be marked. ??? What steps will be taken to help prevent infection. These steps may include: ??? Removing hair at the surgery site. ??? Washing skin with a soap that kills germs. ??? Taking antibiotics. General instructions ??? Do not use any products that contain nicotine or tobacco for at least 4 weeks before the procedure. These products include cigarettes, chewing tobacco, and vaping devices, such as e-cigarettes. If you need help quitting, ask your provider. ??? If you will be going home right after the procedure, plan to have a responsible adult: ??? Take you home from the hospital or clinic. You will not be allowed to drive. ??? Care for you for the time you are told. What happens during the procedure? An IV will be inserted into one of your veins. ??? You will be given: ??? A sedative. This helps you relax. ??? Anesthesia. This keeps you from feeling pain. It will make you fall asleep for surgery. ??? A tool with a camera on the end (ureteroscope) will be put into your urethra. It will be moved through your bladder to your kidney. It will send pictures to a screen in the operating room. This will show what parts of your kidney need to be treated. ??? A tube will be put through the ureteroscope. It will be moved into your kidney. ??? The laser device will be put into your kidney through the tube. The laser will be used to breakup the kidney stones. ??? A tool with a tiny wire basket may be put through the tube into your kidney. This can help remove the small pieces of the kidney stone. ??? A small mesh tube (stent) may be placed to allow your kidney to drain. ??? The tube and ureteroscope will be taken out at the end of the surgery. The procedure may vary among providers and hospitals. What happens after the procedure? Your blood pressure, heart rate, breathing rate, and blood oxygen level will be monitored untilyou leave the hospital or clinic. ??? If you had a stent placed, it may have a string that will be secured to your skin. This helps your provider remove the stent. ??? You may be given a strainer to collect any stone pieces that you pass in your pee. Your provider may have these tested. This information is not intended to replace advice given to you by your health care provider. Make sure you discuss any questions you have with your health care provider. Document Revised: 02/28/2023 Document Reviewed: 02/28/2023 [employer] Patient Education ?? 2023 [employer] Follow Up Care 06/10/2025 13:13:11 With:KIP MCGUIER, Tyler Oliva, URL Address: [address] [place] [address] When: Unknown Comments:sched R??then L URS, laser litho, stent placement Patient Care team information Care Team Personnel Name: HARINDER RUGGIERO MD Position: FT Physician Member Role: Primary Care Physician [facility] [facility] [place] [address] Dreamscape Blue: Care Team Related Persons Name: ILA LOCKE Name: ILA LOCKE Insurance Providers Guarantor name: CARLOS Farrar CORNELIA Health Plan Information #: 1 Payer: MEDICARE Payer Identifier: [id number] Member Number: [id number] Group Number: [id number] Subscriber Identifier: [id number] Relationship to Subscriber: Self/Patient Coverage Type: Medicare Coverage Verification Date: 25 Telecom: [phone] Address: [facility] [id number] [place] [address] Health Plan Information #: 2 Payer: [employer] Payer Identifier: [id number] Member Number: [id number] Group Number: [id number] Subscriber Identifier: [id number] Relationship to Subscriber: Self/Patient Coverage Type: Private Health Insurance Coverage Verification Date: NA Telecom: MARK Address: [address] [address] [place] [address]
[2025-06-28 11:24] VITALS: BP 130/72; PULSE 66; TEMP 36.3; O2SAT 99; BMI 38.2
[2025-07-05] VITALS (10 sets, daily range): BP systolic 112–148; BP diastolic 50–98; PULSE 64–76; TEMP 36.3–36.6; O2SAT 95–98; BMI 38.0
--- OUTSIDE RECORDS SUMMARY | 2025-07-05 07:02 | XMS_ITS | Clinical Summary ---
Author Organization [facility] Address [address] [place] [address] Care Team Providers Care Butt Sawyer Name Role Phone Tulio Madrid MD Primary Care Provider [phone] Allergies Active AllergyReactionsCriticalityNoted FzgfIdxmxxjxOzmmpcbyeJvola02/18/2023 Oxycodone-Jnkkjwsownefe46/18/2023 Medications MedicationSigDispense QuantityRefillsLast FilledStart DateEnd DateStatus atorvastatin (Lipitor) 20 mg tablet atorvastatin 20 mg tablet TAKE 1 TABLET BY MOUTH EVERYDAY AT EMCYBNR2904/25/2020Active colchicine 0.6 mg tablet Take 0.6 mg [...] 2 TABLETS BY MOUTH EVERY DAY AT SCENJET4407/11/2022ctive Active Problems ProblemNoted DateDiagnosed DateBenign prostatic hyperplasia with urinary kgxvyfmgqur99/18/2023History of colonic sckcjh2207/31/2022Hydronephrosis with renal and ureteral calculus jyipcyaaibc33/18/2023Liver mass07/31/2022Long term current use of anticoagulant ziobyze2807/31/2022Neoplasm of uncertain behavior of liver and biliary svtlocgm09/18/9225Rbuvqmji26/18/3441Lptlmo35/31/2022ack pain 12/11/2021iabetes ldmjygdi72/31/2268Affz07/31/2022History of pulmonary embolism 12/11/2021 Assessment & Plan (07/31/2022 2:19 PM EST): Currently stable History of severe acute respiratory syndrome coronavirus 2 (SARS-CoV-2) disease 12/11/20216152Yoybqjbiavobmj26/31/2022 Assessment & Plan (07/31/2022 2:17 PM EST): Lipid abnormalities are currently well controlled with lipitor 20 mg- LDL currently 58.6 on labs 07/26/2022 Liver function 04/2022 were normal Hypertensive xxbyyvfx65/31/2022 Assessment & Plan (07/31/2022 2:18 PM EST): Hypertension is well controlled 114/64 Continue lisinopril 5 mg Recent CR elevated 1.59- his cr typically has been 1.2-1.4 - He has been on antibiotics for Lt foot infection- DFU with wound care. Wdvfqke4012/11/2021bstructive sleep apnea eprwkgqi50/31/2022 Family History Medical HistoryRelationNameCommentsStrokeFatherRelationNameStatusCommentsFather Social History Tobacco UseTypesPacks/DayYears UsedDateSmoking Tobacco: NeverSmokeless Tobacco: Never Tobacco Cessation:Counseling Given: Not Answered Alcohol UseStandard Drinks/WeekCommentsYes0 (1 standard drink = 0.6 oz pure alcohol)occasionalUT Safety & EnvironmentAnswerDate RecordedFear of Current or Ex-PartnerNot on file09/04/2023Emotionally AbusedNot on file09/04/2023hysically AbusedNot on file09/04/2023Sexually AbusedNot on file09/04/2023hysically or Sexually AbusedNot on file09/04/2023Sex and Gender InformationValueDate Recorded Sex Assigned at BirthNot on fileLegal VerPgrd7901/09/2022 9:30 PM EDTGender IdentityNot on fileSexual OrientationNot on file Last Filed Vital Signs Vital SignReadingTime TakenCommentsBlood Mhhiyfkl232/6401 1:39 PM EST Xyyhu954207/31/2022 1:39 PM ESTTemperature--Respiratory Rate--Oxygen Yczcesasvu40% 07/31/2022 1:39 PM ESTInhaled Oxygen Concentration--Stlrpb593 kg (308 lb) 07/31/2022 1:39 PM VSBEohjvh283.4 cm (6' 1 )07/31/2022 1:39 PM ESTBody Mass Index40.64007/31/2022 1:39 PM EST Plan of Treatment Health MaintenanceDue DateLast DoneCommentsCT Wypnujbnjmfd31/09/1957Colonoscopy 1956Colorectal Cancer Mcoteulyx46/09/1957Diabetes: Hemoglobin A1C 1956FIT-DNA1956FIT1956FOBT1956Medicare Annual Wellness (AWV)1956 4395Weibauohdgrxc65/09/1957Diabetes: Retinopathy Lukwewmnv91/09/1967 Depression Xalfczkyd53/09/1969Diabetes: Urine Protein Ggbffpvup38/09/1976Adult Tebywkg3708/22/1978Zoster Vaccines (1 of 2)2006Fall Risk Mgymohxds70/09/2022 Pneumococcal Vaccine: 50+ Years (2 of 2 [...] Date Tulio Madrid MD [address] [place] [address] PCP - [facility]07/05/24
--- OUTSIDE RECORDS SUMMARY | 2025-07-05 07:02 | XMS_ITS | Clinical Summary ---
Author Organization [facility] Address [id number] [address] [place] [address] Care Team Providers Care Regulatory Associate Name Role Phone Unavailable Primary Care Provider Unavailabl e Social History Tobacco UseTypesPacks/DayYears UsedDateSmoking Tobacco: Never AssessedChildcare AnswerDate LkpxjtwsOdjedvrtlYioljof82/11/2019EmploymentAnswerDate Recorded ObibgjjopxOhwqyqk92/11/2019Purpose - LifeAnswerDate RecordedPurpose and direction in ubdgCdkeevg42/11/2021ex and Gender InformationValueDate Recorded Sex Assigned at BirthNot on fileLegal UomMrgu5702/14/2015 9:00 PM EDTGender IdentityNot on fileSexual OrientationNot on file Plan of Treatment Health MaintenanceDue DateLast DoneCommentsDepression Tjhoxhrlv91/09/1969Tobacco Hjtslyydx20/09/1969Adult BMI Wgwlnihhv23/09/1975DTaP,Tdap and Td Vaccines (1 - Tdap)1975Zoster (Shingles) Vaccine (1 of 2)2006Fall Risk Screening 2021Influenza Iztkycy1703/14/2025RSV ( or age 60+ yrs) (1 - 1-dose 75+ series)2031 Medical Devices Not on file
--- OUTSIDE RECORDS SUMMARY | 2025-07-05 07:03 | XMS_ITS | Clinical Summary ---
Author Organization [facility] Address [address] [place] [address], [address] [place] [address] Care Team Providers Care Front Office Clerk Name Role Phone Tulio Madrid MD Primary Care Provider + Social History Tobacco UseTypesPacks/DayYears UsedDateSmoking Tobacco: Never AssessedSex and Gender InformationValueDate RecordedSex Assigned at BirthNot on fileLegal Sex Male01/31/2025 12:58 PM EDTGender IdentityNot on fileSexual OrientationNot on file Plan of Treatment Health MaintenanceDue DateLast DoneCommentsDepression Kfrqaj1708/22/1968Hepatitis C vocdwl9508/22/1974DTaP/Tdap/Td vaccine (1 - Tdap)08/22/19750017Vmsjov74/09/1997 Smdfetnqwlz61/09/2002Colorectal Cancer Bgtjjh5808/22/2001FIT/FOBT: Average risk 2001Fecal-DNA (Cologuard): Average risk2001Sigmoidoscopy/CT nonrhmvdniqu95/09/2002Shingles vaccine (1 of 2)2006Pneumococcal 50+ years Vaccine [...] Date Tulio Madrid MD [address] [place] [address] PCP - [facility]01/31/25
--- OUTSIDE RECORDS SUMMARY | 2025-07-05 07:03 | XMS_ITS | Patient Health Record ---
Author Organization [facility] [place] Address [address] [place] [address] Care Team Providers Care Global Compensation Director Name Role Phone None, Unknown or Primary Care Provider Unavailab James Gutierrez Unavailable [phone] Allergies Allergen (clinical drug ingredient) Drug/Non Drug Allergy documented on EMR Reaction Allergy Type Onset Date Status oxycodone Oxycodone Unknown Drug Allergy Active Results Component Value Reference Range Notes PROF CHEM 8 (BAS METB) Reviewed date:08/24/2024 12:52:49 PM Interpretation: Performing Lab: Notes/Report: [facility] , Sodium 143 136-145 mmol/L Potassium4.73.5-5.1 mmol/SAbwmrtdw06225-099 mmol/LCarbon Bodxcwz97.421.0-32.0 mmol/LAnion Gap14.1Fxwvjlt77115-809 mg/dLBlood Urea Isbyglnq31.07.0-18.0 mg/dL Creatinine1.620.70-1.30 mg/dLEstimated GFR ( Pqbnhvz48>=60 mL/min/1.73m 2 Estimated GFR (Non- Ame43>=60 mL/min/1.73m 2BUN Creatinine Ratio17.3 Calcium7.78.5-10.1 mg/dLPerforming Lab:see noteML - [facility] LBCBC AUTO DIFF Reviewed date:08/24/2024 12:52:49 PM Interpretation: Performing Lab: Notes/Report: [facility] ,White Blood Count13.84.0-11.0 10 3/uLRed Blood Count3.504.70-6.10 10 6/uL Awvozrvxcj90.514.0-18.0 g/hKSsfcktokxs16.842.0-54.0 %Mean Corpuscular Knkuvo99.4 80.0-94.0 fLMean Corpuscular Clzbvabkql78.925.9-34.0 pgMean Corpuscular HGB Conc 33.029.9-35.2 g/dLRed Cell Distribution Width13.711.0-15.0 %Platelet Wimhj773 150-450 10 3/uLMean Platelet Volume9.29.5-13.5 fLNeutrophils Percent Auto81.1 43.0-75.0 %Lymphocytes Percent Auto8.920.5-60.0 %Monocytes Percent Auto9.11.7- 12.0 %Eosinophils Percent Auto0.10.9-7.0 %Basophils Percent Auto0.10.2-2.0 % Immature Granulocytes Pct Auto0.70.0-0.5 %Neutrophils Absolute Auto11.21.4-6.5 10 3/uLLymphocytes Absolute Auto1.21.2-3.8 10 3/uLMonocytes Absolute Auto1.30.3- 0.8 10 3/uLEosinophils Absolute Auto0.00.0-0.7 10 3/uLBasophils Absolute Auto0.0 0.0-0.1 10 3/uLImmature Granulocytes Abs Auto0.090.00-0.03 10 3/uLPerforming Lab:see noteML - [facility] Reason For Referral No Information Medications [...] due t o type 2 diabetes mellitus (660969560) Type 2 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) ActiveconfirmedProblemFoot ulcer due to type 2 diabetes mellitus (6045630872719) Type 2 diabetes mellitus with foot ulcer (E11.621)ActiveconfirmedProblemAcquired hallux valgus (09618027)Hallux valgus (acquired), left foot (M20.12)Active confirmedProblemAcquired hallux rigidus (7996622)Hallux rigidus, left foot (M20.22)ActiveconfirmedProblemPseudarthrosis after fusion or arthrodesis (115471309)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)Activeconfirmed ProblemPain associated with internal prosthetic device (disorder) (882851393) Pain due to internal orthopedic prosthetic devices, implants and grafts, initial encounter (T84.84XA)ActiveconfirmedProblemHistory of arthrodesis (907140093) Arthrodesis status (Z98.1)ActiveconfirmedProblemAcquired hallux rigidus (5937468)Acquired hallux rigidus of left foot (M20.22)ActiveconfirmedProblem Delayed healing of surgical wound (finding) (562990514)Delayed surgical wound healing (T81.89XA)ActiveconfirmedProblemPolyneuropathy due to type 2 diabetes mellitus (723270588)Diabetes mellitus with polyneuropathy (E11.42)Active confirmedProblemChronic foot ulcer, [...] ACCESS PPO PLUS LOCAL PLAN [address] [place] [address] [id number] Ilya Kanwal Spouse - patient is the spouse of the insured 3 [place] [id number] Part A OnlyLance Caraballof - patient is [...]
--- OUTSIDE RECORDS SUMMARY | 2025-07-05 07:03 | XMS_ITS | Clinical Summary ---
Author Organization [facility] Address [address] [place] [address] Care Team Providers Care Engine Mechanic Name Role Phone Tulio Madrid MD Primary Care Provider [phone] Allergies Active AllergyReactionsCriticalityNoted FudmLzvghpikTwrgbvcyo59/18/2023 Other Reaction(s): Hyperactive behavior, Other Oxycodone-AcetaminophenItching,ArerTmx6307/31/2022 Medications MedicationSigDispense QuantityRefillsLast FilledStart DateEnd DateStatus allopurinol [...] hyperglycemia, without long-term current use of insulin ([facility])TAKE 1 TABLET BY MOUTH EVERY DAY [...] hyperglycemia, without long-term current use of insulin ([facility])INJECT 2 MG SUBCUTANEOUSLY WEEKLY 9 mL 5Active febuxostat (Uloric) 40 MG tablet Indications:Type 2 diabetes mellitus with hyperglycemia, without long-term current use of insulin (HCC),Morbid obesity (CMS-HCC),Polyneuropathy due to type 2 diabetes mellitus ([facility])Take 1 tablet (40 mg) by mouth [...] Indications:Polyneuropathy due to type 2 diabetes mellitus ([facility])TAKE 1 CAPSULE BY MOUTH IN THE MORNING, EVENING AND BEFORE BEDTIME 270 capsule 5Active Active Problems ProblemNoted DateDiagnosed DateEncounter for long-term current use of medication 08/05/2024Screening PSA (prostate specific antigen)08/05/2024Encounter for preoperative sronnpjpzf20/02/2025 Assessment & Plan (07/15/2024 9:48 AM EST): Able to proceed with upcoming surgery at low risk for complications. History of DM but controlled with medication. No CAD or HTN. Not having chest pain or palpitations. Recommend routine PAT. Seasonal allergic rhinitis due to ovzvmu2901/12/2024 Assessment & Plan (01/12/2025 9:44 AM EDT): Symptoms controlled with medication and continue. Assessment & Plan (01/12/2024 9:44 AM EDT): Symptoms controlled with medication and continue. Primary ncqqwyde48/01/2024 Assessment & Plan (01/12/2025 9:43 AM EDT): [...] and continue neurontin. Primary osteoarthritis of knees, ieaviwzvo89/10/2024nnual physical exam 07/23/2023 Assessment & Plan (07/15/2024 [...] daily Aspirin therapy. DDD (degenerative disc disease), mvvhys9806/26/2023 Assessment & Plan (01/12/2025 9:43 AM EDT): Pain stable and follow with pain management. Assessment & Plan (01/12/2024 9:44 AM EDT): Pain stable and follow with pain management. Hhmufvfsnqls34/14/2023 Assessment & Plan (07/15/2024 9:51 AM EST): Due for labs. Arthritis, gouty108/27/2022 Assessment & Plan (01/12/2025 9:43 AM EDT): No flares and continue allopurinol. Assessment & Plan (01/12/2024 9:43 AM EDT): No flares and continue allopurinol. Male wwgvljhyyfvu48/14/2023NAFL (nonalcoholic fatty liver)06/26/2023lass 2 severe obesity due [...] with hyperglycemia, without long-term current use of vycpidm5406/26/2023 Assessment & Plan (01/12/2025 9:44 AM EDT): [...] Stick to ADA diet and limit carbs. Ogjvfbhjrsqc05/03/2023ge-related nuclear cataract of both eyes03/10/2023 Resolved Problems [...] RecordedSex Assigned at BirthNot on file Legal IicRule8409/25/2022 7:24 PM EDTGender IdentityNot on fileSexual Orientation Not on file Last Filed Vital Signs Vital SignReadingTime TakenCommentsBlood Mirhkmos605/8401/12/2025 8:53 AM EDT Mercf779001/12/2025 8:53 AM REDMlnxartzinv28.2 ??C (97.1 ??F)01/12/2025 8:53 AM EDTRespiratory Ewhk007801/12/2025 8:53 AM EDTOxygen Giknobzbuq71%01/12/2025 8:53 AM EDTInhaled Oxygen Concentration--Vftozc429 kg (293 lb)01/12/2025 8:53 AM EDT Bnylsh437 cm (6' 2 )01/12/2025 8:53 AM EDTBody Mass Index37.62001/12/2025 8:53 AM EDT Plan of Treatment Health MaintenanceDue DateLast DoneCommentsCT Bspfsgexyksr51/09/1957FIT-DNA 1956FIT1956FOBT1956 6447Zkjifpyqsijkm86/09/1957Pneumococcal Vaccine: 65+ Years (2 of 2 - PCV)Influenza Vaccine (#1) /01/2024, 04/12/2023, 04/17/2022, Additional history exists Vxyaiwalqes14Colorectal Cancer Arukctrdu16/02/2027Diabetes: Hemoglobin O6YFfoulbifgnlu02/03/2024, 07/25/2023 Insurance Care Teams Team MemberRelationshipSpecialtyStart DateEnd Date Tulio Madrid MD PCP - GeneralFamily Medicine01/12/24
--- OUTSIDE RECORDS SUMMARY | 2025-07-05 07:03 | XMS_ITS | Patient Health Record ---
Author Organization [facility] Address [address] [place] [address] Care Team Providers Care Manager Power Name Role Phone Tulio Madrid Primary Care Provider Daniele Ruffin Unavailable [phone] Results Component Value Reference Range Notes MRI Knee Surg.Navigate or Pl an ONLY Left (Not yet reviewed by provider) Interpretation: Performing Lab: Notes/Report: Patient Name: Warner Locke HISTORY: Arthritis of the left knee. Preoperative planning. XR Knee 1 or 2 Views Left (N ot yet reviewed by provider) Interpretation: Performing Lab: Notes/Report: Patient Name: Warner Locke EXAM: Left knee XR Foreign Body Loc Eye Bila teral (Not yet reviewed by provider) Interpretation: Performing Lab: Notes/Report: Patient Name: Warner Locke Procedure: AP view of the orbits. Surgery Scheduling Reviewed date:08/31/2024 09:51:53 AM Interpretation: Performing Lab: Notes/Report: Primary Insurance Company: WILFRID Surgeon/Assist:ERIK/VHAE ONESur[facility]: 08/09/2024 @ 9 AMHosp arrival time day of:7:00 AMSurgery End Time:12:00Procedure: LEFT TOTAL KNEE ARTHROPLASTYSpecial Equipment:EDEN AND NEPHEW VISIONEERC-Arm: YESDiagnosis:OSTEOARTHRITIS OF LEFT KNEEAdmission Type:OPAnesthesia Type/CPNB: GENERAL/QAUTKAsj62 HR OBSPost-op Appointment Date:08/23/24 @ 2 PMLatex AllergyNO [facility] Date/ Securities Consultant:ISMAEL [employer] & Physical Appointment Date/:07/26/24Pre-op labs/Chest Order:CBC WI,CMP,MRSA,UA WITH C AND S, URINE NICOTINE,CXR,EKGHad or have MRSA/Direct contact w MRSA pt/HCWNOHad dental problems/Yes-no/type:NOXR Knee Standing AP Bilateral (Not yet reviewed by provider) Interpretation: Performing Lab: Notes/Report: Patient Name: Warner Locke EXAM: XR Knee Standing AP BilateralXR Knee Standing AP Bilateral (Not yet reviewed by provider) Interpretation: Performing Lab: Notes/Report: Patient Name: Warner Locke EXAM: XR Knee Standing AP BilateralXR KNEE LEFT (3 VIEWS) (Not yet reviewed by provider) Interpretation: Performing Lab: Notes/Report: EXAM: XR KNEE LEFT (3 VIEWS) Performed at: [address] [address] Reason For Referral Reason APPROVED WILFRID... 08/09...PLEASE PRECERT LEFT TOTAL KNEE REPLACEMENT WITH [facility] AT [facility] Diagnosis 1 Primary osteoarthrit is of left knee (M17.12) Referral Organization [facility] Referring Provider First Name Daniele Referring Provider Last Name Erik Referring Provider Speciality Orthopedic Surgery Referred Organization [facility] Referred Provider Daniele Valencia Referred Address [address] [place], [place],[address], Referred Provider Specialty Orthopedic S urgery Procedure 1 Arthroplasty Knee To clare Med/Lat Compartments (51312) General Notes Ismael Mariee 2024 09:43:18 AM >Juan Alberto Amber 07/23/2024 12:38:24 PM > AUTH IS PENDING WITH ADRIENNE. FORM AND CLINICALS WERE FAXED. FORM IN CHART.Juan Alberto Amber 07/26/2024 02:03:05 PM > AUTH WAS APPROVED PER ADRIENNEO. APPROVED DATES ARE FROM 07/23/2024-09/20/2024. AUTH #[id number]. AUTH IN CHART. PER AVAILITYWILFRID IS ACTIVE OF 07/14/2022. FAXED TO [facility]. Referral Priority Routine Medications Medication SIG (Take, [...] in the past year?Monthly or less (1 point)Xmxfzb8VifoqhafqathbaFaftseug Tobacco Control (Standard) Question Answer Notes Tobacco use: Nonsmoker Problems Problem Type SNOMED Code ICD Code Onset Dates Problem Status W/U Status Risk Notes Problem Pain of right knee r egion (finding) (060830819352235) Pain in right knee (M25.561) ActiveconfirmedProblemPain of left knee joint (finding) (831942646133531)Pain in left knee (M25.562)ActiveconfirmedProblemOsteoarthritis of knee (751010716) Primary osteoarthritis of left knee (M17.12)ActiveconfirmedProblemHistory of musculoskeletal operation (310232292)Aftercare following joint replacement surgery (Z47.1)ActiveconfirmedProblemArtificial knee joint present (128404782673)Presence of left artificial knee joint (Z96.652)Activeconfirmed ProblemBilateral arthritis of knees (5962811925390969)Primary osteoarthritis of knees, bilateral (M17.0)Activeconfirmed Vital Signs Height 6'1 in 01/31/2025 Bwlgjw609 lbs5BMI37.9901/31/2025 Encounters Encounter Location Date Provider Diagnosis [place] [address] [place] [address] 07/26/2024 Daniele Valencia Primary osteoarthrit is of left knee M17.12 [facility] [address] [place] [address] 08/23/2024 Daniele Valencia Primary osteoarthrit is of left knee M17.12 [facility] [address] [place] [address] 09/06/2024 Daniele Valencia Aftercare following joint replacement surgery Z47.1 and Presence of left artificial knee joint Z96.652 [facility] Office [address] [facility] [place] [address] [place] [address] 10/04/2024 Daniele Valencia Aftercare following joint replacement surgery Z47.1 and Presence of left artificial knee joint Z96.652 [facility] Office [address] [facility] [place] [address] 12/20/2024 Daniele Valencia Aftercare following joint replacement surgery Z47.1 and Presence of left artificial knee joint Z96.652 [facility] Office [address] [place] [address] 01/31/2025 Daniele Valencia Aftercare following joint replacement surgery Z47.1 and Presence of left artificial knee joint Z96.652 [place] [address] [place] [address] 08/23/2024 Danielejavier Valencia Primary osteoarthrit is of left knee M17.12 ; Presence of left artificial knee joint Z96.652 and Aftercare following joint replacement surgery Z47.1 [place] [address] [place], [facility] 08/26/2024 Daniele Valencia Aftercare following joint replacement surgery Z47.1 [place] [address] [place] [address] 09/13/2024 Daniele Valencia Aftercare following joint replacement surgery Z47.1 Assessments Encounter Date Diagnosis (ICD Code) Assessment Notes Treatment Notes Treatment Clinical Notes Section Notes 07/26/2024 Primary osteoarthritis of left k nee (ICD-10 - M17.12) Left knee qpzrdtmywflmls59/10/2025Primary osteoarthritis of left knee (ICD-10 - M17.12)08/23/2024Primary osteoarthritis of left knee (ICD-10 - M17.12)08/23/2024 Presence of left artificial knee joint (ICD-10 - Z96.652)5Aftercare following joint replacement surgery (ICD-10 - Z47.1)5Aftercare following joint replacement surgery (ICD-10 - Z47.1)Status post left total knee bkoicxdodnhp24/03/2025ftercare following joint replacement surgery (ICD-10 - Z47.1)10/04/2024ftercare following joint replacement surgery (ICD-10 - Z47.1) Status post left total knee bgwihwgubwdx11/09/2025ftercare following joint replacement surgery (ICD-10 - Z47.1)Status post left total knee arthroplasty. 01/31/2025ftercare following joint replacement surgery (ICD-10 - Z47.1)Right knee OA01/31/2025Presence of left artificial knee joint (ICD-10 - Z96.652)Right knee OA12/20/2024Presence of left artificial knee joint (ICD-10 - Z96.652)Status post left total knee arthroplasty.10/04/2024Presence of left artificial knee joint (ICD-10 - Z96.652)Status post left total knee gtmlsvcdibcb53/24/2025 Presence of left artificial knee joint (ICD-10 - Z96.652)Status post left total knee susezdagkpyl86/10/2025ftercare following joint replacement surgery (ICD-10 - Z47.1)07/26/2024OtherPatient is a 68-year-old male presenting today for his left knee osteoarthritis. He is exhausted conservative management. Do believe total knee arthroplasty can provide him with some benefit. Discussed risk and benefits of surgery in detail. No guarantees send and signed in the office today. Plan for left total knee arthroplasty.Left knee aqiwenhirdijgs21/24/2025 OtherPatient overall doing very well today in [...] Order Date Knee, left 3v AP, Lat, [employer] - [address] 0 01/31/2025 PT - Evaluate and Treat, as directed, 2 - 3 times a week x 4 - 6 weeks 07/26/2024 XR Foreign Body Loc Eye Bilateral 2024 XR Knee 1 or 2 Views Left 07/23/2024 XR Knee Standing AP Bilateral 07/26/2024 XR Knee Standing AP Bilateral 07/26/2024 SCC- KNEE 4 VIEW LEFT-15336 06/21/2024 XR KNEE LEFT (3 VIEWS) 01/31/2025 SCC- KNEE 4 VIEW RIGHT 66189 06/21/2024 SCC- KNEE 2 VIEW LEFT - 84341 09/06/2024 SCC- KNEE 2 VIEW LEFT - 23229 10/04/2024 SCC- KNEE 2 VIEW LEFT - 14370 12/20/2024 MRI Knee Surg.Navigate or Plan ONLY Left 07/23/2024 Hip to ankle Lt -51644 visioneer 024 MRI : Knee, Left. [employer] shanita including long leg films [id number] 06/21/2024 Insurance Providers Payer Name Payer Address Payer Phone Subscriber Number Group Number Insured Name Patient Relationship to Insured Coverage Start Date Coverage End Date [employer] [address] [place] [address] [id number] ILA LOCKE Spouse - patient is the spouse of the insured 5 Medications Administered Medication Instructions Date of Administration Dosage Notes BUPIVACAINE mLDepo-Gifqdx87 jUarjlfjgyu77/26/20244 mL
[2025-07-05] MEDS: CEFAZOLIN SODIUM 2 GM/50 ML D5W PREMIX IV (08:54)
--- NOTE | 2025-07-05 11:10 | PM.URSON ---
Urology Surgery Operative Note Operative Note Procedure Date: 07/05/25 Time Out Performed: yes Pre-op Diagnosis: Bilateral nephrolithiasis Post-op Diagnosis: same as pre-op Procedures performed: 1. Cystoscopy. 2. Right ureteroscopy. 3. Thulium laser lithotripsy of large right ureteral calculus. Greater than 1 cm 4. Right pyeloscopy. 5. Thulium laser lithotripsy of several right renal calculi. Both being greater than 1 cm each #6. Stone fragment basket extraction. 7. Placement of 7 [place]ian variable length right ureteral stent Anesthesia: NOHEMY Primary Surgeon: Tyler Florian Complications: None Estimated blood loss (mL): 5 Findings: 1. Large right proximal impacted ureteral calculus totally obstructing ureter. 2. 2, large right renal calculi. Each greater than 1 cm. Specimens: Right renal calculus fragment Drains: 7 [place]itanian variable length ureteral stent on the right Indications for Procedures: This gentleman has bilateral nephrolithiasis. The stone burden on the right side was substantially larger than the left. He now presents for ureteroscopic laser lithotripsy and right stent placement. He has signed an informed consent after all risks were explained. Detailed description of Procedure: The patient was brought to the operating room and placed on the operating room table in the supine position. SCDs were placed on the lower extremities and turned on and functioning during the entire case. Timeout was done by all parties in the room. We all agreed upon the patient's identification and the planned procedures for this patient. Genn. anesthesia was then administered. The patient was then repositioned into the modified dorsal lithotomy position. All pressure points were satisfactorily padded. Genitalia were sterilely prepped and draped in usual fashion. I started by passing a 22 [place] Olympus cystoscope per urethra and into the bladder. Prostatic urethra showed bilobar obstruction. Bladder revealed no tumors but high-grade trabeculation with some diverticuli. A Glidewire was passed through the scope and up the ureter and into the kidney. The scope was removed. 10/12 [place]itanian ureteral access sheath was passed over the wire up to the L5 position. Stylette and wire were then removed. Flexible ureteroscope was passed through the sheath and into the ureter. I then arrived at a large obstructing and impacted UPJ calculus. 270 Angstrom laser fiber was used and the thulium laser was used at 7 W fragmentation mode then ultimately 10 W. This impacted stone was able to be chiseled off of the lining of the ureter. Pieces fell into the kidney. I then ascended up the ureter and into the kidney. I looked into the upper mid and lower pole calyces. There was some Mono's plaques in the upper pole calyx. There was a 1 cm stone in the upper pole calyx. There was a 1-1/2 cm stone in the midpole calyx. Multiple pieces from the ureteral stone fell to this area. I started here with the laser fiber and began doing laser lithotripsy at 10 W on the dusting mode. I used a 0 tip nitinol basket to grasp a few pieces and these were extracted and sent for stone analysis. Once all of the stone in the mid pole calyces were fully dusted I then went to the upper pole calyx stone. This stone was similarly dusted. Submillimeter flecks were left behind as dust. There was copious amounts of this throughout the upper and mid pole calyces. Fluoroscopically, we found no evidence of remaining stone. The scope was removed after the Glidewire was passed into the kidney. The access sheath was then removed and the cystoscope was backloaded over the wire and passed in the bladder. A 7 [place]ian variable length stent was passed over the wire up into the kidney. The wire was removed and there were good curls in the kidney and in the bladder. Bladder was drained of its contents and the scope was then removed. Anesthetic was then reversed. He was then transferred to a [facility] bed and wheeled to PACU in stable condition.
[2025-07-05] MEDS: SOLIFENACIN SUCCINATE 10 MG TABLET PO (11:23)
--- NOTE | 2025-07-05 12:14 | PC.NURSE ---
1210: pt voids without difficulty,urine blood tinged no clots present.
== END 2025-07-05 12:20 | disposition home or self-care (01) ==
LOC: SURGOUT 07:00
PROVIDERS: PCP Family Medicine; Visit Provider Urology
PROC: (CPT 52356; principal; 2025-07-05 08:45)
DX: N20.2 Calculus of kidney with calculus of ureter (principal); N32.89 Other specified disorders of bladder; G47.33 Obstructive sleep apnea (adult) (pediatric); Z86.711 Personal history of pulmonary embolism; Z87.01 Personal history of pneumonia (recurrent); E78.5 Hyperlipidemia, unspecified; I10 Essential (primary) hypertension; Z87.442 Personal history of urinary calculi; N40.0 Benign prostatic hyperplasia without lower urinary tract symptoms; Z79.84 Long term (current) use of oral hypoglycemic drugs; E11.40 Type 2 diabetes mellitus with diabetic neuropathy, unspecified; E66.01 Morbid (severe) obesity due to excess calories; Z68.38 Body mass index [BMI] 38.0-38.9, adult
CPT/HCPCS: 52356; 36415; 76000; 82365; 82948; 99999; J0131; J0690; J1100; J2405; J2704; J3010